=== PATIENT | male | born 1965 | race Caucasian/White ===

== ENCOUNTER 2016-03-24 11:03 | Inpatient (IN) | payer MEDICAID, OTHER ==
[2016-03-24] VITALS (9 sets, daily range): BP systolic 102–132; BP diastolic 50–93; PULSE 81–86; RESP 20–32; TEMP 97.6–98.7; O2SAT 81–93
[~2016-03-24] VITALS: Ht 154.9 cm; Wt 115.9 kg
[2016-03-24] MEDS ORDERED: METF500T PO (11:23)
[2016-03-24] MEDS ORDERED: ASPI81CH CHEW (11:23)
[2016-03-24 11:58] LABS: BASOPHIL # 0.1 TH/MM3 (0-0.2); BASOPHIL % 0.7 % (0.0-2.0); EOSINOPHIL # 0.1 TH/MM3 (0-0.4); EOSINOPHIL % 0.9 % (0.0-4.0); HEMATOCRIT 47.4 % (39.0-51.0); HEMO FLAGS DIFF FINAL; LYMPH % 11.4 % (9.0-44.0); LYMPHOCYTE # 1.4 TH/MM3 (1.0-4.8); MEAN CELL VOLUME 86.2 FL (80.0-100.0); MEAN CORPUSCULAR HEMOGLOBIN 27.5 PG (27.0-34.0); MEAN CORPUSCULAR HGB CONC 31.9 % (32.0-36.0); PLATELET COUNT 291 TH/MM3 (150-450); RED CELL DISTRIBUTION WIDTH 15.6 % (11.6-17.2); WHITE BLOOD COUNT 12.3 TH/MM3 (4.0-11.0)
--- NOTE | 2016-03-24 12:20 | RADRPT ---
EXAM DATE/TIME: 03/24/2016 11:42 [facility] COMPARISON: No previous studies available for comparison. INDICATIONS : Short of Breath. MEDICAL HISTORY : None. SURGICAL HISTORY : None. ENCOUNTER: Initial ACUITY: 1 day PAIN SCORE: 0/10 LOCATION: Bilateral chest FINDINGS: Portable AP view of the chest demonstrates cardiac silhouette size is upper limits for normal. Lungs are underinflated with likely atelectasis at the bases. Hazy opacity of the left lung may be related to slight rotation and overlying soft tissues. No definite effusion or pneumothorax is seen. No acute osseous abnormality is identified. CONCLUSION: Examination less than optimal due to underinflation and body habitus. There is likely atelectasis the lung bases but no other abnormality is seen. Ubaldo Rodas MD on March 24, 2016 at 12:18 Board Certified Radiologist. This report was verified electronically.
[2016-03-24 13:06] LABS: APTT (PATIENT) 27.9 SEC (24.3-30.1); PROTHROMBIN TIME - PATIENT 11.2 SEC (9.8-11.6)
[2016-03-24] MEDS ORDERED: IOHEXOL 350 MG/ML 10 ML VIAL (for RAD DIAG) IV ONE (13:08)
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
[2016-03-24 13:22] LABS: ALT (GPT) 29 U/L (12-78); ANION GAP 2 MEQ/L (5-15); AST (GOT) 11 U/L (15-37); BICARBONATE 38.2 MEQ/L (21.0-32.0); BLOOD UREA NITROGEN 11 MG/DL (7-18); CHLORIDE 101 MEQ/L (98-107); GLOMERULAR FILTRATION RATE 121 ML/MIN (>89); MAGNESIUM 2.2 MG/DL (1.5-2.5); POTASSIUM 4.2 MEQ/L (3.5-5.1); SODIUM (NA) 141 MEQ/L (136-145)
[2016-03-24 13:25] LABS: ALKALINE PHOSPHATASE 100 U/L (45-117); TOTAL BILIRUBIN ADULT 0.7 MG/DL (0.2-1.0)
--- NOTE | 2016-03-24 13:43 | RADRPT ---
EXAM DATE/TIME: 03/24/2016 12:47 [facility] COMPARISON: No previous studies available for comparison. INDICATIONS : Shortness of breath; evaluate for embolism. IV CONTRAST: 89 cc Omnipaque 350 (iohexol) IV RADIATION DOSE: 23.19 CTDIvol (mGy) MEDICAL HISTORY : Diabetes mellitus type 2. SURGICAL HISTORY : None. ENCOUNTER: Initial ACUITY: 1 day PAIN SCALE: 0/10 LOCATION: chest TECHNIQUE: Volumetric scanning of the chest was performed using a pulmonary embolism protocol MIP images were re constructed. Using automated exposure control and adjustment of the mA and/or kV according to patien t size, radiation dose was kept as low as reasonably achievable to obtain optimal diagnostic quality images. FINDINGS: Examination quality is degraded by respiratory motion artifact. PULMONARY ARTERIES: No filling defects are seen in the pulmonary arteries through the segmental level. LUNGS: There is no consolidation or pneumothorax . There is an 11 mm subpleural noncalcified pulmonary nodul e in the left lower lobe. PLEURAE: There is no pleural thickening or pleural effusion. MEDIASTINUM: Heart demonstrates no acute finding. Pulmonary artery measures 3.8 cm in diameter compared to 3.7 cm from the adjacent aorta. No lymphadenopathy is visualized. MUSCULOSKELETAL: Within normal limits for patient age. MISCELLANEOUS: The visualized upper abdominal organs demonstrate no acute abnormality. Liver density is suggestive o f steatosis. CONCLUSION: 1. There is respiratory motion artifact but no PE is identified through most of the segmental level p ulmonary arteries. 2. Mildly enlarged main pulmonary artery may indicate pulmonary arterial hypertension. 3. 11 mm left lower lobe noncalcified pulmonary nodule. Suggest correlation with any prior imaging st udies that could confirm longer-term stability. If none are available consider short-term followup no ncontrast chest CT in approximately 3 months. Ubaldo Rodas MD on March 24, 2016 at 13:38 Board Certified Radiologist. This report was verified electronically.
[2016-03-24 14:57] LABS: BLOOD GAS BASE EXCESS 8.8 mmol/L (-2-2); BLOOD GAS CARBOXYHEMOGLOBIN 2.5 % (0-4); BLOOD GAS HCO3 35 mmol/L (22-26); BLOOD GAS METHEMOGLOBIN 2.1 % (0-2); BLOOD GAS O2 HGB SATURATION 78 % (90-100); BLOOD GAS OXYGEN CONTENT 17.1 Vol % (12.0-20.0); BLOOD GAS PCO2 66 mmHg (38-42); BLOOD GAS PO2 46 mmHG (61-120); BLOOD GAS TOTAL HGB 15.7 G/DL (12.0-16.0); TEMP CORR TO 98.6
[2016-03-24 14:58] LABS: CRITICAL VALUE YES; DRAW SITE RT RADIAL; NUMBER OF ARTERIAL PUNCTURES 1; OXYGEN DEVICE RA; STAT YES; ULNAR PULSE Y
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
[2016-03-24] MEDS ORDERED: GLUCAGON 1 MG/ML VIAL OTHER PRN (16:30)
[2016-03-24] MEDS ORDERED: DEXTROSE 50% IN WATER 50 ML VIAL(D50) IV PUSH PRN (16:30)
[2016-03-24] MEDS: ENOXAPARIN SODIUM 40 MG/0.4 ML SYRINGE SQ SCH (17:00)
[2016-03-24] MEDS: RESP: ALBUTEROL 2.5 MG/IPRATROPIUM 0.5 MG NEB (SCH) NEB ×2 (17:12→20:32)
[2016-03-24] MEDS ORDERED: CHLORHEXIDINE GLUCONATE 2 % 1 PACK (2 CLOTHS)(extra cloths) TOP PRN (19:15)
[2016-03-24] MEDS: INSULIN NovoLIN REGULAR SUPPLEMENTAL SCALE SQ SCH (20:27)
[2016-03-25] VITALS (17 sets, daily range): BP systolic 109–151; BP diastolic 62–89; PULSE 80–98; RESP 24–27; TEMP 98.3–98.7; O2SAT 91–94
[2016-03-25] MEDS: RESP: ALBUTEROL 2.5 MG/IPRATROPIUM 0.5 MG NEB (SCH) NEB ×4 (03:48→19:35)
[2016-03-25] MEDS: CHLORHEXIDINE GLUCONATE 2 % 1 PACK (2 CLOTHS)(taper/protocol) TOP SCH (04:00)
[2016-03-25] MEDS: INSULIN NovoLIN REGULAR SUPPLEMENTAL SCALE SQ SCH ×4 (06:07→20:12)
[2016-03-25] MEDS: PANTOPRAZOLE SOD 40 MG DELAYED RELEASE TAB PO SCH (08:57)
[2016-03-25 09:53] LABS: HEMOGLOBIN A1a 1.5 %; HEMOGLOBIN A1b 2.1 %; HEMOGLOBIN Ao 83.1 %; HEMOGLOBIN LA1C 1.5 %; HEMOGLOBIN P3 3.8 %
[2016-03-25] MEDS ORDERED: INFLUENZA VIRUS VACCINE (QUADRIVALENT) 0.5 ML SYR IM ONE (10:00)
--- NOTE | 2016-03-25 13:38 | HHI.PR ---
Subjective Remarks states had a good sleep with BiPap on overnight complians of cramping of the right hand- states history of carpal tunnel surgery in the past- has a splint at home Objective Vitals Vital Signs Date Time Temp Pulse Resp B/P Pulse Ox O2 Delivery O2 Flow Rate FiO2 03/25/16 12:00 98.4 92 26 129/62 94 03/25/16 12:00 92 03/25/16 10:00 92 03/25/16 08:00 98.3 80 24 109/65 94 03/25/16 08:00 80 03/25/16 07:42 92 Nasal Cannula 4.00 03/25/16 06:00 83 03/25/16 04:08 93 45 03/25/16 04:00 81 03/25/16 04:00 98.4 87 27 112/62 92 03/25/16 02:00 83 03/25/16 00:38 92 45 03/25/16 00:00 98.6 84 26 112/62 91 03/25/16 00:00 84 03/24/16 22:00 86 03/24/16 20:32 93 Nasal Cannula 3.00 03/24/16 20:00 81 03/24/16 20:00 98.2 82 23 102/58 91 03/24/16 18:44 98.3 82 32 113/50 92 03/24/16 18:00 82 03/24/16 18:00 98.7 I/O 03/24/16 03/24/16 03/24/16 03/25/16 03/25/16 03/25/16 07:00 15:00 23:00 07:00 15:00 23:00 Intake Total 350 ml 700 ml Output Total 750 ml 650 ml Balance -400 ml 50 ml Intake Oral 350 ml 700 ml IV Total 0 ml 0 ml Output Urine Total 750 ml 650 ml # Bowel Movements 0 0 Result Diagram: 03/24/16 1144 03/24/16 1235 Imaging Last Impressions Chest X-Ray 03/24/16 1121 Signed Impressions: Service Date/Time: Thursday, March 24, 2016 11:42 - CONCLUSION: Examination less than optimal due to underinflation and body habitus. There is likely atelectasis the lung bases but no other abnormality is seen. Ubaldo Rodas MD CT Angiography 03/24/16 1121 Signed Impressions: Service Date/Time: Thursday, March 24, 2016 12:47 - CONCLUSION: 1. There is respiratory motion artifact but no PE is identified through most of the segmental level pulmonary arteries. 2. Mildly enlarged main pulmonary artery may indicate pulmonary arterial hypertension. 3. 11 mm left lower lobe noncalcified pulmonary nodule. Suggest correlation with any prior imaging studies that could confirm longer-term stability. If none are available consider short-term followup noncontrast chest CT in approximately 3 months. Ubaldo Rodas MD Objective Remarks awake and alert, oriented x 3 anicteric lungs no rales or wheezes regular rhythm abdomen- globularly soft, nontender both hands- good coverage analyst, good radial pulses LE- no edema A/P Assessment and Plan 50 years old male for dizziness, shortness of breath Acute respiratory Failure - C02 retention- likely with underlying chronic Restrictive lung disease from obesity JACOB suspect place on BiPAP hs change to NC 2LPM to keep sats greater than 90%. Get. PFTs Nebulization q 6 AND Q 2 PRN CTA negative for PE will need to arrange for home 02 need sleep studies as OP. Pulmonary consult DM type 2 Hold metformin with recent contrast- restart 48 hours with increase dose ( patient only on 500 mg once a day as OP) check hemoglobin A1C- 7.4 Sliding scale insulin tid hs Right hand cramping- History of Carpal tunnel surgery right hand get OT consult. ? splint or brace recommendation Seborrheic Dermatitis- face trial of Lotrisone bid to nasolabial folds PPI for GI prophylaxis Lovenox SQ for DVT prophylaxis Case management consult- will need home PAP OP ff up set up with a PCP Ana Dent MD Mar 25, 2016 13:38
[2016-03-25] MEDS: TIOTROPIUM BROMIDE 18 MCG INH INH SCH (13:45)
[2016-03-25] MEDS: ENOXAPARIN SODIUM 40 MG/0.4 ML SYRINGE SQ SCH (17:00)
[2016-03-25 17:27] LABS: BLOOD GAS BASE EXCESS 12.3 mmol/L (-2-2); BLOOD GAS CARBOXYHEMOGLOBIN 2.2 % (0-4); BLOOD GAS HCO3 40 mmol/L (22-26); BLOOD GAS METHEMOGLOBIN 1.2 % (0-2); BLOOD GAS O2 HGB SATURATION 89 % (90-100); BLOOD GAS OXYGEN CONTENT 19.7 Vol % (12.0-20.0); BLOOD GAS PCO2 93 mmHg (38-42); BLOOD GAS PO2 69 mmHg (61-120); BLOOD GAS TOTAL HGB 15.7 G/DL (12.0-16.0); TEMP CORR TO 98.6
[2016-03-25 17:29] LABS: OXYGEN DEVICE BIPAP
[2016-03-25 17:30] LABS: DRAW SITE RT RADIAL; FIO2 40 %; NUMBER OF ARTERIAL PUNCTURES 1; STAT NO; ULNAR PULSE PRESENT; VENT SETTINGS IPAP16/EPAP12
[2016-03-26] VITALS (19 sets, daily range): BP systolic 93–167; BP diastolic 57–90; PULSE 81–98; RESP 16–49; TEMP 97.3–99; O2SAT 81–100
[2016-03-26] MEDS: RESP: ALBUTEROL 2.5 MG/IPRATROPIUM 0.5 MG NEB (SCH) NEB ×4 (03:26→20:28)
[2016-03-26] MEDS: CHLORHEXIDINE GLUCONATE 2 % 1 PACK (2 CLOTHS)(taper/protocol) TOP SCH (04:00)
--- NOTE | 2016-03-26 05:18 | MB ---
cc: ORLANDO PERRY M.D. DATE OF CONSULTATION 03/25/2016 REASON FOR CONSULTATION Respiratory failure. Morbid obesity. HISTORY OF PRESENT ILLNESS The patient is a 50-year-old male admitted with sensation of dizziness. The patient was noted to be both hypoxic and hypercarbic with increasing lethargy, presently in Intensive Care setting on BiPap therapy. Denies shortness of breath, fever, chills, cough or expectoration. PAST MEDICAL HISTORY 1. Diabetes mellitus. 2. Morbid obesity. HOME MEDICATIONS 1. Aspirin. 2. Metformin. ALLERGIES PENICILLIN. TETANUS. FAMILY HISTORY Positive for diabetes. SOCIAL HISTORY Does not smoke or drink. Does not use drugs. SYSTEMS REVIEW A 12-point review of systems as per HPI and Past History, otherwise negative. PHYSICAL EXAMINATION VITAL SIGNS: Temperature 98, pulse 84, respirations 22, blood pressure 130/77, oxygen saturation 86% on 6 liters oxygen nasal cannula. HEENT: Exam unremarkable. Eyes without icterus. NECK: Without adenopathy or thyroid enlargement. Central trachea. CHEST: No dullness to percussion. Clear to auscultation. CARDIAC EXAM: PMI distant. S1-S2 audible. ABDOMEN: Obese, lax. Bowel sounds audible. EXTREMITIES: Trace edema. LABORATORY DATA Sodium 141, potassium 4.2, BUN 11, creatinine 0.7. ABG - pH 7.34, pCO2 66 and pO2 of 46 on room air. White count 12,000, hemoglobin 15, hematocrit 47, platelets at 291,000. CT CHEST Upon presentation with a left lower lobe lung nodule 1.1 cm that requires followup. Mild enlargement of main pulmonary artery noted. IMPRESSION 1. Hypoxic hypercarbic respiratory failure. 2. Morbid obesity. 3. Obesity hypoventilation. Question of a possible obstructive sleep apnea. 4. Left lower lobe lung nodule needs followup. PLAN 1. The patient will be maintained on BiPap therapy as needed. 2. He will require long-term oxygen therapy as well. 3. His lung nodule will need long-term followup. Nothing need be done at this point for his lung nodule. 4. We will check baseline pulmonary function when the patient is able to perform so. I do thank you for asking to partake in Mr. Leger's care. Sincerely, Orlando Perry MD [id number] /3:54 PM /5:04 AM
[2016-03-26] MEDS: INSULIN NovoLIN REGULAR SUPPLEMENTAL SCALE SQ SCH ×4 (06:42→20:02)
[2016-03-26] MEDS: TIOTROPIUM BROMIDE 18 MCG INH INH SCH (08:35)
[2016-03-26] MEDS: PANTOPRAZOLE SOD 40 MG DELAYED RELEASE TAB PO SCH (08:35)
--- NOTE | 2016-03-26 08:38 | HHI.PR ---
Subjective Remarks awake and alert, episodes of desaturation no chest pains. overnight on BiPAP 40 % tolerated well on NC on daytime Objective Vitals Vital Signs Date Time Temp Pulse Resp B/P Pulse Ox O2 Delivery O2 Flow Rate FiO2 03/26/16 06:00 91 03/26/16 04:04 91 40 03/26/16 04:04 91 BiPAP 40 03/26/16 04:00 96 18 129/59 91 03/26/16 04:00 92 03/26/16 02:00 95 03/26/16 01:17 94 40 03/26/16 00:00 98.5 84 26 112/62 91 03/26/16 00:00 97 03/25/16 22:01 92 45 03/25/16 22:00 94 03/25/16 20:00 98.7 90 25 151/80 92 03/25/16 20:00 98 03/25/16 19:35 91 45 03/25/16 18:00 90 03/25/16 16:00 90 03/25/16 16:00 98.7 90 26 140/89 91 03/25/16 14:00 91 03/25/16 12:00 98.4 92 26 129/62 94 03/25/16 12:00 92 03/25/16 10:00 92 I/O 03/25/16 03/25/16 03/25/16 03/26/16 03/26/16 03/26/16 07:00 15:00 23:00 07:00 15:00 23:00 Intake Total 700 ml 200 ml 0 ml 0 ml Output Total 650 ml 425 ml 500 ml 400 ml Balance 50 ml -225 ml -500 ml -400 ml Intake Oral 700 ml 200 ml 0 ml 0 ml IV Total 0 ml 0 ml 0 ml 0 ml Output Urine Total 650 ml 425 ml 500 ml 400 ml # Bowel Movements 0 0 0 0 Result Diagram: 03/24/16 1144 03/24/16 1235 Imaging Last Impressions Chest X-Ray 03/24/16 1121 Signed Impressions: Service Date/Time: Thursday, March 24, 2016 11:42 - CONCLUSION: Examination less than optimal due to underinflation and body habitus. There is likely atelectasis the lung bases but no other abnormality is seen. Ubaldo Rodas MD CT Angiography 03/24/16 1121 Signed Impressions: Service Date/Time: Thursday, March 24, 2016 12:47 - CONCLUSION: 1. There is respiratory motion artifact but no PE is identified through most of the segmental level pulmonary arteries. 2. Mildly enlarged main pulmonary artery may indicate pulmonary arterial hypertension. 3. 11 mm left lower lobe noncalcified pulmonary nodule. Suggest correlation with any prior imaging studies that could confirm longer-term stability. If none are available consider short-term followup noncontrast chest CT in approximately 3 months. 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 Perry ff NC on dayts to keep sats greater than 90%. Get. PFTs Nebulization q 6 AND Q 2 PRN CTA negative for PE need sleep studies as OP.. OP ff up of nodule in [address] 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 ? splint or brace recommendation Seborrheic Dermatitis- face trial of Lotrisone bid to nasolabial folds PPI for GI prophylaxis Lovenox SQ for DVT prophylaxis Case management consult- will need home PAP ADD: ABG worsening respiratory acidosis - will get Residential Direct Support Professional consult for ICU management. Ana Dent MD Mar 26, 2016 08:38
[2016-03-26 09:39] LABS: BLOOD GAS BASE EXCESS 15.4 mmol/L (-2-2); BLOOD GAS CARBOXYHEMOGLOBIN 2.4 % (0-4); BLOOD GAS HCO3 43 mmol/L (22-26); BLOOD GAS METHEMOGLOBIN 1.3 % (0-2); BLOOD GAS O2 HGB SATURATION 83 % (90-100); BLOOD GAS OXYGEN CONTENT 17.6 Vol % (12.0-20.0); BLOOD GAS PCO2 99 mmHg (38-42); BLOOD GAS PO2 54 mmHg (61-120); BLOOD GAS TOTAL HGB 15.1 G/DL (12.0-16.0); TEMP CORR TO 98.6
[2016-03-26 09:40] LABS: CRITICAL VALUE YES; DRAW SITE LT RADIAL; LITER FLOW 4 L/M; NUMBER OF ARTERIAL PUNCTURES 1; OXYGEN DEVICE NASAL CANNULA; STAT NO; ULNAR PULSE PRESENT
[2016-03-26] MEDS: metFORMIN HCL 500 MG TAB PO SCH ×2 (11:40→18:00)
[2016-03-26] MEDS: BETAMETHASONE/CLOTRIMAZOLE CREAM 15 GM TOPICAL SCH ×2 (11:40→20:03)
[2016-03-26 12:15] LABS: BLOOD GAS BASE EXCESS 15.6 mmol/L (-2-2); BLOOD GAS CARBOXYHEMOGLOBIN 2.6 % (0-4); BLOOD GAS HCO3 43 mmol/L (22-26); BLOOD GAS METHEMOGLOBIN 1.2 % (0-2); BLOOD GAS O2 HGB SATURATION 90 % (90-100); BLOOD GAS OXYGEN CONTENT 19.2 Vol % (12.0-20.0); BLOOD GAS PCO2 98 mmHg (38-42); BLOOD GAS PO2 71 mmHg (61-120); BLOOD GAS TOTAL HGB 15.3 G/DL (12.0-16.0); CRITICAL VALUE YES; OXYGEN DEVICE BiPAP; TEMP CORR TO 98.6
[2016-03-26 12:16] LABS: DRAW SITE LT RADIAL; FIO2 50 %; NUMBER OF ARTERIAL PUNCTURES 1; STAT NO; ULNAR PULSE PRESENT; VENT SETTINGS IPAP16/EPAP12
--- NOTE | 2016-03-26 13:01 | PD.CONS ---
HPI Service Critical Care Medicine Consult Requested By Primary Care Physician No Primary Care Physician Past Family Social History Allergies: Coded Allergies: Penicillin (Verified Allergy, Severe, Swelling, 03/24/16) Tetanus Toxoid (Verified Allergy, Unknown, Swelling, 03/24/16) Physical Exam Vital Signs Vital Signs Date Time Temp Pulse Resp B/P Pulse Ox O2 Delivery O2 Flow Rate FiO2 03/26/16 10:08 91 50 03/26/16 10:00 98 03/26/16 09:03 90 Nasal Cannula 4.00 03/26/16 08:00 91 03/26/16 08:00 99.0 91 26 133/72 90 03/26/16 06:00 91 03/26/16 04:04 91 40 03/26/16 04:04 91 BiPAP 40 03/26/16 04:00 96 18 129/59 91 03/26/16 04:00 92 03/26/16 02:00 95 03/26/16 01:17 94 40 03/26/16 00:00 98.5 84 26 112/62 91 03/26/16 00:00 97 03/25/16 22:01 92 45 03/25/16 22:00 94 03/25/16 20:00 98.7 90 25 151/80 92 03/25/16 20:00 98 03/25/16 19:35 91 45 03/25/16 18:00 90 03/25/16 16:00 90 03/25/16 16:00 98.7 90 26 140/89 91 03/25/16 14:00 91 Laboratory Laboratory Tests Test 03/25/16 03/26/16 03/26/16 17:16 09:20 12:00 Blood Gas Puncture Site RT RADIAL LT RADIAL LT RADIAL Blood Gas Patient Temperature 98.6 98.6 98.6 Blood Gas HCO3 40 43 43 Blood Gas Base Excess 12.3 15.4 15.6 Blood Gas Oxygen Saturation 89 83 90 Arterial Blood pH 7.26 7.26 7.26 Arterial Blood Partial 93 99 98 Pressure CO2 Arterial Blood Partial 69 54 71 Pressure O2 Arterial Blood Oxygen Content 19.7 17.6 19.2 Arterial Blood 2.2 2.4 2.6 Carboxyhemoglobin Arterial Blood Methemoglobin 1.2 1.3 1.2 Blood Gas Hemoglobin 15.7 15.1 15.3 Oxygen Delivery Device BIPAP NASAL CANNULA BiPAP Blood Gas Ventilator Setting IPAP16/EPAP12 IPAP16/EPAP12 Blood Gas Inspired Oxygen 40 50 Blood Gas Liter Flow 4 Result Diagram: 03/24/16 1144 03/24/16 1235 Baltazar Conner MD Mar 26, 2016 13:00
--- NOTE | 2016-03-26 13:02 | PD.CONS ---
[facility] Service Critical Care Medicine Consult Requested By Dr. Dent Reason for Consult Acute hypoxemic and hypercarbic respiratory failure Primary Care Physician No Primary Care Physician History of Present Illness Patient is a 50 years old obese male with past medical history significant for undiagnosed sleep apnea, super morbid obesity, type 2 diabetes was brought to the emergency department on 03/24/16 after feeling light headed and dizzy. On presentation here was found to be hypoxemic and ABG showed severe hypoxemia and hypercarbia. For a recent driving physical he was diagnosed with low oxygen saturations. Patient's oxygen saturation the ED was in the low 80s, which was confirmed on ABG with a oxygen saturation of 78% and PO2 of 46. CTA negative for PE. Patient was initiated on BiPAP therapy with consult to pulmonary Dr. Crane. His oxygenation improved but he continued to be hypercapnic. Today a.m. on nasal cannula his pH was 7.26 and PCO2 was increased at 99, patient was somnolent was placed back on BiPAP and repeat ABG at noon showed pH 7.26 PCO2 98 and pO2 70. This was on 16/02 BiPAP with FiO2 50%. Critical care was consulted. On my evaluation patient is somnolent but wakes up easily. I reduced the PEEP on BiPAP from 12-7 to facilitate better ventilation. A repeat ANG showed only minimal improvement, so decision made to intubate patient. Glidescope with #4 blade was used. Only propofol was used for induction. Initially I had a Grade 1-2 view, but I was unable to pass tube through the vocal cord to trachea in two attempts. Tube slipped out of Laryngeal opening both times. Dr Garrett intubated patient after NM paralysis with succinylcholine. Post intubation ABG showed improvement in hypercapnia and oxygenation. Review of Systems ROS Limitations: Clinical Condition, Altered Mental Status, Other (on BiPAP) Past Family Social History Allergies: Coded Allergies: Penicillin (Verified Allergy, Severe, Swelling, 03/24/16) Tetanus Toxoid (Verified Allergy, Unknown, Swelling, 03/24/16) Past Medical History Super morbid obesity Type 2 diabetes Probable obstructive sleep apnea undiagnosed Past Surgical History Right carpal tunnel surgery Reported Medications Metformin 500 mg daily ASA 81 mg daily Active Ordered Medications Reviewed Family History Noncontributory Social History Denies alcohol or tobacco use Physical Exam Vital Signs Vital Signs Date Time Temp Pulse Resp B/P Pulse Ox O2 Delivery O2 Flow Rate FiO2 03/26/16 10:08 91 50 03/26/16 10:00 98 03/26/16 09:03 90 Nasal Cannula 4.00 03/26/16 08:00 91 03/26/16 08:00 99.0 91 26 133/72 90 03/26/16 06:00 91 03/26/16 04:04 91 40 03/26/16 04:04 91 BiPAP 40 03/26/16 04:00 96 18 129/59 91 03/26/16 04:00 92 03/26/16 02:00 95 03/26/16 01:17 94 40 03/26/16 00:00 98.5 84 26 112/62 91 03/26/16 00:00 97 03/25/16 22:01 92 45 03/25/16 22:00 94 03/25/16 20:00 98.7 90 25 151/80 92 03/25/16 20:00 98 03/25/16 19:35 91 45 03/25/16 18:00 90 03/25/16 16:00 90 03/25/16 16:00 98.7 90 26 140/89 91 03/25/16 14:00 91 Physical Exam GENERAL: obese, in moderate distress on BiPAP SKIN: Evidence of seborrheic dermatitis of the face HEAD: Atraumatic. Normocephalic. No temporal or scalp tenderness. EYES: Pupils equal round and reactive. Extraocular motions intact. ENT: Nose without bleeding, BiPAP mask limits exam. Anticipated difficult airway NECK: Very Large neck. Trachea midline. CARDIOVASCULAR: Regular rate and rhythm without murmurs, gallops, or rubs. RESPIRATORY: Breath sounds equal bilaterally. Mild wheezes and rhonchi GASTROINTESTINAL: Abdomen soft, obese MUSCULOSKELETAL: Extremities without clubbing, cyanosis, or edema. NEUROLOGICAL: Somnolent but wakes up easily. Obeys some commands Laboratory Laboratory Tests Test 03/25/16 03/26/16 03/26/16 17:16 09:20 12:00 Blood Gas Puncture Site RT RADIAL LT RADIAL LT RADIAL Blood Gas Patient Temperature 98.6 98.6 98.6 Blood Gas HCO3 40 43 43 Blood Gas Base Excess 12.3 15.4 15.6 Blood Gas Oxygen Saturation 89 83 90 Arterial Blood pH 7.26 7.26 7.26 Arterial Blood Partial 93 99 98 Pressure CO2 Arterial Blood Partial 69 54 71 Pressure O2 Arterial Blood Oxygen Content 19.7 17.6 19.2 Arterial Blood 2.2 2.4 2.6 Carboxyhemoglobin Arterial Blood Methemoglobin 1.2 1.3 1.2 Blood Gas Hemoglobin 15.7 15.1 15.3 Oxygen Delivery Device BIPAP NASAL CANNULA BiPAP Blood Gas Ventilator Setting IPAP16/EPAP12 IPAP16/EPAP12 Blood Gas Inspired Oxygen 40 50 Blood Gas Liter Flow 4 Result Diagram: 03/24/16 1144 03/24/16 1235 Imaging Chest x-ray shows bibasilar atelectasis Assessment and Plan Assessment and Plan ASSESSMENT: Acute hypoxemic and hypercarbic respiratory failure Obstructive sleep apnea/obesity hypoventilation syndrome Pulmonary edema Severe morbid obesity Incidental Pulmonary nodule DM type 2 Seborrheic Dermatitis PLAN: NEURO: -Placed on propofol and fentanyl postintubation. No sedation vacation for 24 hours RESP: -Emergently intubated and placed on mechanical ventilation -ACV 16/600/12/ Titrate FiO2. -DuoNeb q6 and PRN -Daily CPAP trials, starting in 24 hours -Solu-Medrol 40 mg IV q6 -Empiric Azactam CV: -Chest x-ray shows probable pulmonary edema, cardiomegaly -Check 2-D echo, check BNP -IV Lasix 40 mg 1 and 20 every 12 hours GI: -Nothing by mouth, tube feeds with Glucerna and 24 hours, IV Protonix : -Monitor renal function closely. Becker catheter. ID: -Empirically placed on Azactam 2 g IV every 8 hours -Check sputum culture and blood culture HEME: -Monitor CBC, CMP, coags ENDO: -Sliding-scale insulin, electrolyte replacement protocol PROPH: -Bilateral lower extremity SCDs. IV Protonix 40 mg daily. Lovenox 40 mg sq BID LINES: -Utilize peripheral IVs, central line if needed CC time 90 min excluding procedures Code Status Full Code Discussed Condition With Baltazar Wen MD Mar 26, 2016 13:02
[2016-03-26 13:11] LABS: BLOOD GAS CARBOXYHEMOGLOBIN 2.6 % (0-4); BLOOD GAS HCO3 42 mmol/L (22-26); BLOOD GAS METHEMOGLOBIN 1.3 % (0-2); BLOOD GAS O2 HGB SATURATION 87 % (90-100); BLOOD GAS OXYGEN CONTENT 18.8 Vol % (12.0-20.0); BLOOD GAS PCO2 96 mmHg (38-42); BLOOD GAS PO2 60 mmHg (61-120); BLOOD GAS TOTAL HGB 15.4 G/DL (12.0-16.0); TEMP CORR TO 98.6
[2016-03-26 13:12] LABS: CRITICAL VALUE YES; DRAW SITE RT RADIAL; FIO2 60 %; NUMBER OF ARTERIAL PUNCTURES 1; OXYGEN DEVICE BiPAP; STAT NO; ULNAR PULSE PRESENT; VENT SETTINGS IPAP16/EPAP7
[2016-03-26] MEDS ORDERED: PROPOFOL 1000 MG/100 ML INJ 100 ML ONE (13:16)
[2016-03-26] MEDS ORDERED: ETOMIDATE 40 MG/20 ML VIAL ONE (13:20)
[2016-03-26 14:59] LABS: BLOOD GAS BASE EXCESS 13.3 mmol/L (-2-2); BLOOD GAS CARBOXYHEMOGLOBIN 2.7 % (0-4); BLOOD GAS HCO3 38 mmol/L (22-26); BLOOD GAS METHEMOGLOBIN 1.3 % (0-2); BLOOD GAS O2 HGB SATURATION 95 % (90-100); BLOOD GAS PCO2 51 mmHg (38-42); BLOOD GAS PO2 121 mmHg (61-120); BLOOD GAS TOTAL HGB 15.6 G/DL (12.0-16.0); CRITICAL VALUE YES; OXYGEN DEVICE VENTILATOR; TEMP CORR TO 98.6
[2016-03-26 15:00] LABS: DRAW SITE LT RADIAL; FIO2 100 %; NUMBER OF ARTERIAL PUNCTURES 1; STAT NO; ULNAR PULSE PRESENT; VENT SETTINGS PRVC/AC
--- NOTE | 2016-03-26 15:02 | OTSOAPIP ---
TIME SESSION COMPLETED: 1400 TREATMENT TIME: 0 MINS. CHART REVIEWED. RECEIVED ORDERS FROM DR. SAEZ FOR OCCUPATIONAL THERAPY EVALUATION. ATTEMPTED TO SEE THIS DATE, HOWEVER PATIENT NOT STABLE AT THIS TIME. SPOKE WITH RN AND PATIENT WAS JUST RECENTLY INTUBATED. WILL HOLD EVALUATION TODAY AND PLAN TO FOLLOW UP TOMORROW TO CHECK AND SEE IF PATIENT IS STABLE. INTERDISCIPLINARY COMMUNICATION: REVIEWED ELECTRONIC MEDICAL RECORD, SPOKE WITH RN Therapist: Johanna Armando, OTR/L Signature on file
--- NOTE | 2016-03-26 15:07 | RADRPT ---
EXAM DATE/TIME: 03/26/2016 14:12 [facility] COMPARISON: CT PULMONARY ANGIOGRAM, March 24, 2016, 12:47. CHEST SINGLE AP, March 24, 2016, 11:42. INDICATIONS : Endotracheal tube placement. MEDICAL HISTORY : None. SURGICAL HISTORY : None. ENCOUNTER: Initial ACUITY: 3 days PAIN SCORE: Non-responsive. LOCATION: chest FINDINGS: The ET tube is in good position. The heart is enlarged. There is diffuse interstitial prominence sugg esting congestive failure. There are mild atelectatic changes at the left lung base. The bony structu res are intact. CONCLUSION: 1. ET tube in satisfactory position. Dc Barton MD on March 26, 2016 at 15:05 Board Certified Radiologist. This report was verified electronically.
[2016-03-26] MEDS ORDERED: ROCURONIUM INJ 50 MG/5 ML VIAL ONE ×2 (15:38→15:40)
--- NOTE | 2016-03-26 16:08 | PD.PROCEDR ---
Central Line Procedure REASON FOR PROCEDURE Central venous access PROCEDURE PERFORMED Central line placement: LIJ central line CONSENT Informed consent for procedure was obtained and time out performed. The risks and benefits of the procedure were discussed to include but limited to bleeding , clot formation, infection, and even . ANESTHESIA Local injection of 1% Lidocaine DESCRIPTION OF THE PROCEDURE The patient was placed in supine, mild Trendelenburg position. The area was exposed and cleansed with ChloraPrep, times two. Large sterile drape was used to cover the patient, with the site exposed, under sterile conditions including cap, face mask, sterile gown, and sterile gloves. On single attempt, the introducer needle was inserted with negative pressure in syringe and venous flash was obtained. The guide wire was then advanced without any restriction and the needle was removed. The dilator was used without any complications. Using Seldinger technique the 20 CM 7F ABX coated catheter was advanced over the guide wire to a depth of 19 centimeters. The guide wire was removed. All ports were aspirated with dark venous blood return and flushed easily with sterile saline. All ports were capped. Antibiotic disc was placed around central line at puncture site. The central line was secured to the skin with two interrupted 2.0 silk sutures. The area was bandaged with sterile see- through central line bandage. RADIOLOGICAL DATA Ultrasound guidance was used to locate LIJ. Doppler/color flow was used to confirm venous flow. COMPLICATIONS: No apparent complications ESTIMATED BLOOD LOSS: Less than 1 cc. Baltazar Conner MD Mar 26, 2016 16:08
[2016-03-26 16:11] LABS: BICARBONATE 39.4 MEQ/L (21.0-32.0)
--- NOTE | 2016-03-26 16:20 | PD.PROCEDR ---
Procedure Note Procedure After the risks and benefits were discussed the following procedure was performed: INTUBATION: The patient was put in optimal position for the procedure. Rapid sequence intubation was initiated by me using 100 milligrams of Propofol IV. Glidescope with #4 blade was used. Initially I had a Grade 1-2 view, but I was unable to pass tube through the vocal cord to trachea in two attempts. Tube slipped out of Laryngeal opening both times. Dr Garrett intubated patient after NM paralysis with succinylcholine in one attempt. The patient was intubated with a 8.0 cuffed endotracheal tube. Tube placement was confirmed by visualization of the tube and balloon passing through the cords, capnometry and subsequent chest x-ray. Breath sounds were equal and well aerated bilaterally postintubation. No breath sounds over stomach. Patient tolerated procedure well. Baltazar Conner MD Mar 26, 2016 16:20
--- NOTE | 2016-03-26 16:43 | EC ---
Study Study Date:03/26/2016 STUDY CONCLUSIONS SUMMARY - Left ventricle: The cavity size was normal. Wall thickness was normal. Systolic function was normal. The estimated ejection fraction was 55%. Wall motion was normal; there were no regional wall motion abnormalities. - Aortic valve: Transvalvular velocity was minimally increased. There was very mild stenosis. - Mitral valve: Mild regurgitation. - Tricuspid valve: Mild regurgitation. If LV function is below 40, please consider prescribing an ACEI or ARB or document rationale for non-use. PROCEDURE DATA STUDY STATUS: Elective. Procedure: Transthoracic echocardiography. Image quality was poor. Scanning was performed from the parasternal, apical, and subcostal acoustic windows. Study completion: The patient tolerated the procedure well. Transthoracic echocardiography. M-mode, complete 2D, complete spectral Doppler, and color Doppler. Patient status: Inpatient. CARDIAC ANATOMY LEFT VENTRICLE: The cavity size was normal. Wall thickness was normal. Systolic function was normal. The estimated ejection fraction was 55%. Wall motion was normal; there were no regional wall motion abnormalities. AORTIC VALVE: Trileaflet; mildly thickened leaflets. Doppler: Transvalvular velocity was minimally increased. There was very mild stenosis. No regurgitation. Valve area: 1.17cm^2(VTI). Valve area: 1.09cm^2 (Vmax). Mean gradient: 10mm Hg (S). Peak gradient: 22mm Hg (S). AORTA: Aortic root: The aortic root was normal in size. MITRAL VALVE: Structurally normal valve. Doppler: Transvalvular velocity was within the normal range. There was no evidence for stenosis. Mild regurgitation. LEFT ATRIUM: The atrium was normal in size. RIGHT VENTRICLE: The cavity size was normal. Wall thickness was normal. PULMONIC VALVE: Doppler: Transvalvular velocity was within the normal range. There was no evidence for stenosis. No regurgitation. TRICUSPID VALVE: Structurally normal valve. Doppler: Transvalvular velocity was within the normal range. Mild regurgitation. PULMONARY ARTERY: The main pulmonary artery was normal-sized. Systolic pressure was within the normal range. RIGHT ATRIUM: The atrium was normal in size. PERICARDIUM: There was no pericardial effusion. SYSTEMIC VEINS: Inferior vena cava: The vessel was normal in size. BASIC MEASUREMENTS ADULT NORMAL Left ventricle LV internal dimension, ED, chordal level, 45.5 mm 43-52 PLAX LV internal dimension, ES, chordal level, 35.3 mm 23-38 PLAX Fractional shortening, chordal level, PLAX *22 % >29 LV posterior wall thickness, ED 11.4 mm IVS/LVPW ratio, ED 0.96 <1.3 Ventricular septum Septal thickness, ED 11 mm Aortic valve Leaflet separation 24 mm 15-26 Right ventricle RV internal dimension, ED, PLAX 27.8 mm 19-38 BASIC MEASUREMENTS ADULT NORMAL Aortic valve Leaflet separation 24 mm 15-26 Aorta Root diameter, ED 35 mm 20-37 Left atrium Anterior-posterior dimension, ES 30 mm 19-40 LA/aortic root ratio 0.86 DOPPLER MEASUREMENTS ADULT NORMAL Aortic valve Peak velocity, S 232 cm/s Mean velocity, S 147 cm/s VTI, S 39.9 cm Mean gradient, S 10 mm Hg Peak gradient, S 22 mm Hg Valve area, VTI 1.17 cm^2 Valve area, Vmax 1.09 cm^2 LEGEND: Mean values are shown as u=mean value. Asterisk (*) flower values outside specified normal range. Prepared and signed by Sriram Matthews [id number]
[2016-03-26] MEDS ORDERED: FUROSEMIDE 40 MG/4 ML VIAL IV PUSH ONE (16:45)
[2016-03-26] MEDS ORDERED: MAGNESIUM SULFATE INJ 4 GM in SODIUM CHLORIDE 0.9% INJ 92 ML IV PRN (16:45)
[2016-03-26] MEDS ORDERED: MAGNESIUM SULFATE INJ 2 GM in SODIUM CHLORIDE 0.9% INJ 96 ML IV PRN (16:45)
[2016-03-26] MEDS ORDERED: POTASSIUM CL 40 MEQ/30 ML LIQ UDC PO/TUBE PRN (16:45)
[2016-03-26] MEDS ORDERED: POTASSIUM PHOSPHATE INJ 30 MMOL in SODIUM CHLOR 0.9% 250 ML INJ 250 ML IV PRN (16:45)
[2016-03-26] MEDS ORDERED: MAGNESIUM OXIDE 400 MG TAB PO PRN (16:45)
[2016-03-26] MEDS ORDERED: POTASSIUM PHOSPHATE MONOBASIC 500 MG TAB PO PRN (16:45)
[2016-03-26] MEDS ORDERED: SODIUM PHOSPHATE INJ 30 MMOL in SODIUM CHLOR 0.9% 250 ML INJ 240 ML IV PRN (16:45)
[2016-03-26] MEDS ORDERED: POTASSIUM PHOSPHATE MONOBASIC 500 MG TAB PO/TUBE PRN (16:45)
--- NOTE | 2016-03-26 17:12 | RADRPT ---
EXAM DATE/TIME: 03/26/2016 16:09 [facility] COMPARISON: CHEST SINGLE AP, March 26, 2016, 14:12. INDICATIONS : Evaluate cenrtral line placement MEDICAL HISTORY : None. SURGICAL HISTORY : None. ENCOUNTER: Subsequent ACUITY: 3 days PAIN SCORE: Non-responsive. LOCATION: Bilateral chest FINDINGS: ET tube terminates at the chanelle and pull back 3 cm is recommended. There is placement of a left jugu lar catheter terminating across the midline on the right in the proximal superior vena cava. Poor aer ation is again appreciated CONCLUSION: Left jugular catheter terminates in the proximal superior vena cava without complication. ET tube ter minates at the chanelle pull back 3 cm recommend Bernard Hartman MD on March 26, 2016 at 17:09 Board Certified Radiologist. This report was verified electronically.
[2016-03-26] MEDS: PROPOFOL 1000 MG/100 ML IV SCH ×3 (17:59→20:06)
[2016-03-26] MEDS: FUROSEMIDE 20 MG/2 ML VIAL IV PUSH SCH (18:00)
[2016-03-26] MEDS: ENOXAPARIN SODIUM 40 MG/0.4 ML SYRINGE SQ SCH (18:00)
[2016-03-26] MEDS: PANTOPRAZOLE SODIUM 40 MG VIAL IV PUSH SCH (18:00)
[2016-03-26] MEDS: POTASSIUM CL 40 MEQ/30 ML LIQ UDC PO SCH (18:02)
[2016-03-26] MEDS: methylPREDNISolone SOD SUCC 125 MG/2 ML VIAL IV PUSH SCH (20:04)
[2016-03-26] MEDS: AZTREONAM INJ 2,000 MG in SODIUM CHLORIDE 0.9% INJ 100 ML IV SCH (20:05)
--- NOTE | 2016-03-26 21:44 | EKG ---
Date Performed: 03/24/2016 Time Performed: 11:26:17 PTAGE: 50 years EKG: Sinus rhythm NORMAL ECG NO PREVIOUS TRACING DOCTOR: Ethan Russo Interpretating Date/Time 03/26/2016 21:43:06
--- NOTE | 2016-03-26 22:08 | PD.PROCEDR ---
Procedure Note Procedure Procedure: Arterial Line Placement Left radial arterial line Diagnosis: Acute hypoxic and hypercarbic respiratory failure Indications: Need for serial arterial blood gas monitoring Consent: Consent is deemed emergent or medically necessary Description of the Procedure: The left wrist was prepped and draped sterilely. 1% lidocaine was used for local anesthesia. The pulse was located and a needle was advanced into the artery. A 20 gauge, 12 cm catheter was advanced into the artery using a modified Seldinger technique. The catheter was sutured to the skin and a sterile dressing was applied. The catheter was connected to a pressure transducer and an arterial waveform was noted. Ultrasound guidance: Ultrasound guidance was used to identify the left radial artery. The anatomy of the left wrist was deemed normal. Under direct real- time visualization, the radial artery was cannulated and a guidewire was threaded easily. There were no immediate complications noted. There was minimal EBL. I personally performed the procedure. Js Garrett MD Mar 26, 2016 22:08
[2016-03-27] VITALS (18 sets, daily range): BP systolic 95–122; BP diastolic 55–61; PULSE 58–101; RESP 15–16; TEMP 98.5–99; O2SAT 90–98
[2016-03-27 00:49] LABS: BLOOD GAS BASE EXCESS 9.8 mmol/L (-2-2); BLOOD GAS CARBOXYHEMOGLOBIN 1.8 % (0-4); BLOOD GAS HCO3 34 mmol/L (22-26); BLOOD GAS METHEMOGLOBIN 1.1 % (0-2); BLOOD GAS O2 HGB SATURATION 93 % (90-100); BLOOD GAS OXYGEN CONTENT 19.8 Vol % (12.0-20.0); BLOOD GAS PCO2 42 mmHg (38-42); BLOOD GAS PO2 67 mmHg (61-120); BLOOD GAS TOTAL HGB 15.1 G/DL (12.0-16.0); CRITICAL VALUE YES; OXYGEN DEVICE VENTILATOR; TEMP CORR TO 98.6
[2016-03-27 00:50] LABS: DRAW SITE ART LINE; FIO2 100 %; STAT YES; VENT SETTINGS PRVC/AC
[2016-03-27] MEDS: AZTREONAM INJ 2,000 MG in SODIUM CHLORIDE 0.9% INJ 100 ML IV SCH ×3 (01:41→18:23)
[2016-03-27] MEDS: PROPOFOL 1000 MG/100 ML IV SCH ×11 (01:42→21:49)
[2016-03-27] MEDS: RESP: ALBUTEROL 2.5 MG/IPRATROPIUM 0.5 MG NEB (SCH) NEB ×4 (03:26→21:15)
[2016-03-27] MEDS: fentaNYL 2,500 MCG/NS 250 ML IV SCH ×2 (03:48→15:27)
[2016-03-27] MEDS: CHLORHEXIDINE GLUCONATE 2 % 1 PACK (2 CLOTHS)(taper/protocol) TOP SCH (04:00)
[2016-03-27] MEDS: ENOXAPARIN SODIUM 40 MG/0.4 ML SYRINGE SQ SCH ×2 (04:23→17:43)
[2016-03-27] MEDS: INSULIN NovoLIN REGULAR SUPPLEMENTAL SCALE SQ SCH ×4 (06:27→21:03)
--- NOTE | 2016-03-27 07:52 | RADRPT ---
EXAM DATE/TIME: 03/27/2016 07:30 [facility] COMPARISON: CHEST SINGLE AP, March 26, 2016, 16:09. INDICATIONS : Respiratory disease. MEDICAL HISTORY : None. SURGICAL HISTORY : None. ENCOUNTER: Subsequent ACUITY: 1 day PAIN SCORE: Non-responsive. LOCATION: Bilateral chest FINDINGS: A single view of the chest demonstrates left basilar infiltrate. Nasogastric tube with tip likely in stomach. Left jugular central line is stable in position. Endotracheal tube with tip 5 cm above the c aden. The cardiomediastinal contours are unremarkable. Osseous structures are intact. CONCLUSION: 1. Left basilar infiltrate. 2. Support lines and tubes as described above. Wale Dalal MD on March 27, 2016 at 7:50 Board Certified Radiologist. This report was verified electronically.
--- NOTE | 2016-03-27 07:59 | HHI.CCPN ---
Subjective Remarks/Hospital Course Patient is a 50 years old obese male with past medical history significant for undiagnosed sleep apnea, super morbid obesity, type 2 diabetes was brought to the emergency department on 03/24/16 after feeling light headed and dizzy. On presentation here was found to be hypoxemic and ABG showed severe hypoxemia and hypercarbia. For a recent driving physical he was diagnosed with low oxygen saturations. Patient's oxygen saturation the ED was in the low 80s, which was confirmed on ABG with a oxygen saturation of 78% and PO2 of 46. CTA negative for PE. Patient was initiated on BiPAP therapy with consult to pulmonary Dr. Crane. His oxygenation improved but he continued to be hypercapnic. Today a.m. on nasal cannula his pH was 7.26 and PCO2 was increased at 99, patient was somnolent was placed back on BiPAP and repeat ABG at noon showed pH 7.26 PCO2 98 and pO2 70. This was on 16 BiPAP with FiO2 50%. Critical care was consulted. On my evaluation patient is somnolent but wakes up easily. I reduced the PEEP on BiPAP from 12-7 to facilitate better ventilation. A repeat ANG showed only minimal improvement, so decision made to intubate patient. Glidescope with #4 blade was used. Only propofol was used for induction. Initially I had a Grade 1-2 view, but I was unable to pass tube through the vocal cord to trachea in two attempts. Tube slipped out of Laryngeal opening both times. Dr Garrett intubated patient after NM paralysis with succinylcholine. Post intubation ABG showed improvement in hypercapnia and oxygenation. SUBJ 03/27/16: Patient remains intubated heavily sedated with propofol and fentanyl. Remained severely hypoxemic on 100% FiO2, PEEP12, chest x-ray shows bibasilar infiltrates. Flagyl added. We'll give 1 dose of vancomycin-Adjust antibiotics according to cultures. Patient super morbid obesity may prevent Prone therapy Objective Vital Signs Date Time Temp Pulse Resp B/P Pulse Ox O2 Delivery O2 Flow Rate FiO2 03/27/16 07:26 90 100 03/27/16 06:00 74 03/27/16 04:00 98.8 15 122/60 03/26/16 09:03 Nasal Cannula 4.00 Intake and Output 03/26/16 03/26/16 03/27/16 08:00 16:00 00:00 Intake Total 0 ml 360 ml 728 ml Output Total 400 ml 0 ml 1600 ml Balance -400 ml 360 ml -872 ml Result Diagram: 03/24/16 1144 03/26/16 1527 Other Results Laboratory Tests Test 03/26/16 03/26/16 03/26/16 03/26/16 09:20 12:00 12:57 14:45 Blood Gas Puncture Site LT RADIAL LT RADIAL RT RADIAL LT RADIAL Blood Gas Patient Temperature 98.6 98.6 98.6 98.6 Blood Gas HCO3 43 mmol/L 43 mmol/L 42 mmol/L 38 mmol/L (22-26) (22-26) (22-26) (22-26) Blood Gas Base Excess 15.4 mmol/L 15.6 mmol/L 15.0 mmol/L 13.3 mmol/L (-2-2) (-2-2) (-2-2) (-2-2) Blood Gas Oxygen Saturation 83 % (90-100) 90 % (90-100) 87 % (90-100) 95 % (90- 100) Arterial Blood pH 7.26 7.26 7.27 7.49 (7.380-7.420) (7.380-7.420) (7.380-7.420) (7.380-7.420) Arterial Blood Partial 99 mmHg (38-42) 98 mmHg (38-42) 96 mmHg (38-42) 51 mmHg ( 38-42) Pressure CO2 Arterial Blood Partial 54 mmHg 71 mmHg 60 mmHg 121 mmHg Pressure O2 (61-120) (61-120) (61-120) (61-120) Arterial Blood Oxygen Content 17.6 Vol % 19.2 Vol % 18.8 Vol % 21.0 Vol % (12.0-20.0) (12.0-20.0) (12.0-20.0) (12.0-20.0) Arterial Blood 2.4 % (0-4) 2.6 % (0-4) 2.6 % (0-4) 2.7 % (0-4) Carboxyhemoglobin Arterial Blood Methemoglobin 1.3 % (0-2) 1.2 % (0-2) 1.3 % (0-2) 1.3 % (0-2) Blood Gas Hemoglobin 15.1 G/DL 15.3 G/DL 15.4 G/DL 15.6 G/DL (12.0-16.0) (12.0-16.0) (12.0-16.0) (12.0-16.0) Oxygen Delivery Device NASAL CANNULA BiPAP BiPAP VENTILATOR Blood Gas Liter Flow 4 L/M Blood Gas Ventilator Setting IPAP16/EPAP12 IPAP16/EPAP7 PRVC/AC Blood Gas Inspired Oxygen 50 % 60 % 100 % Test 03/27/16 00:36 Blood Gas Puncture Site ART LINE Blood Gas Patient Temperature 98.6 Blood Gas HCO3 34 mmol/L (22-26) Blood Gas Base Excess 9.8 mmol/L (-2-2) Blood Gas Oxygen Saturation 93 % (90-100) Arterial Blood pH 7.51 (7.380-7.420) Arterial Blood Partial 42 mmHg (38-42) Pressure CO2 Arterial Blood Partial 67 mmHg Pressure O2 (61-120) Arterial Blood Oxygen Content 19.8 Vol % (12.0-20.0) Arterial Blood 1.8 % (0-4) Carboxyhemoglobin Arterial Blood Methemoglobin 1.1 % (0-2) Blood Gas Hemoglobin 15.1 G/DL (12.0-16.0) Oxygen Delivery Device VENTILATOR Blood Gas Ventilator Setting PRVC/AC Blood Gas Inspired Oxygen 100 % Imaging Chest x-ray shows bibasilar atelectasis Objective Remarks GENERAL: obese, heavily sedated on vent SKIN: Evidence of seborrheic dermatitis of the face HEAD: Atraumatic. Normocephalic. EYES: Pupils equal round and reactive. ENT: Nose without bleeding, orotracheally intubated NECK: Very Large neck. Trachea midline. LIJ central line in place CARDIOVASCULAR: Regular rate and rhythm without murmurs, gallops, or rubs. RESPIRATORY: Breath sounds equal bilaterally. Mild wheezes and rhonchi. on PRVC 16 PEEP GASTROINTESTINAL: Abdomen soft, obese MUSCULOSKELETAL: Extremities without clubbing, cyanosis, or edema. NEUROLOGICAL: Intubated heavily sedated with propofol and fentanyl for ventilator synchrony Urinary Catheter: Yes Assessment to: Continue Vascular Central Line Catheter: Yes Assessment to: Continue Date of Insertion: Mar 26, 2016 Side: Left Location: Internal, Jugular A/P Assessment and Plan ASSESSMENT: Acute hypoxemic and hypercarbic respiratory failure Obstructive sleep apnea/obesity hypoventilation syndrome Pulmonary edema Probable HCAP Severe morbid obesity Incidental Pulmonary nodule DM type 2 Seborrheic Dermatitis PLAN: NEURO: -Placed on propofol and fentanyl postintubation. No sedation vacation for 24 hours RESP: -Emergently intubated and placed on mechanical ventilation 03/26/16 -ACV 16/600/12/ Titrate FiO2. -DuoNeb q6 and PRN -Daily CPAP trials, starting in 24 hours -Solu-Medrol 40 mg IV q6 -Empiric Azactam, Flagyl and 1 dose of vancomycin -Consider Prone therapy (patient may be too obese to safely prone) CV: -Chest x-ray shows probable pulmonary edema, cardiomegaly and new LLL infiltrate on my review -2-D echo Nl EF, normal BNP -IV Lasix 40 mg 1 and 20 every 12 hours GI: -Nothing by mouth, start tube feeds with Glucerna, IV Protonix -Colace for bowel regimen : -Monitor renal function closely. Becker catheter. ID: -Empirically placed on Azactam 2 g IV every 8 hours. Start IV Flagyl and 1 dose of vancomycin -F/U sputum culture and blood culture HEME: -Monitor CBC, CMP, coags ENDO: -Sliding-scale insulin, electrolyte replacement protocol PROPH: -Bilateral lower extremity SCDs. IV Protonix 40 mg daily. Lovenox 40 mg sq BID LINES: -LIJ central line and L radila art line in place CC time 40 min excluding procedures Baltazar Conner MD Mar 27, 2016 07:59
[2016-03-27] MEDS ORDERED: Vancomycin Consult Pharmacy 1 EA OTHER SCH (08:00)
[2016-03-27 08:33] LABS: BLOOD GAS BASE EXCESS 10.1 mmol/L (-2-2); BLOOD GAS CARBOXYHEMOGLOBIN 1.5 % (0-4); BLOOD GAS HCO3 34 mmol/L (22-26); BLOOD GAS METHEMOGLOBIN 1.3 % (0-2); BLOOD GAS O2 HGB SATURATION 96 % (90-100); BLOOD GAS OXYGEN CONTENT 20.8 Vol % (12.0-20.0); BLOOD GAS PCO2 46 mmHg (38-42); BLOOD GAS PO2 101 mmHg (61-120); BLOOD GAS TOTAL HGB 15.4 G/DL (12.0-16.0); CRITICAL VALUE NO; OXYGEN DEVICE VENTILATOR; TEMP CORR TO 98.6
[2016-03-27 08:34] LABS: DRAW SITE ART LINE; STAT NO; VENT SETTINGS PRVC/AC
[2016-03-27] MEDS: FUROSEMIDE 20 MG/2 ML VIAL IV PUSH SCH ×2 (08:36→17:43)
[2016-03-27] MEDS: TIOTROPIUM BROMIDE 18 MCG INH INH SCH (08:36)
[2016-03-27] MEDS: metroNIDAZOLE 500 MG INJ 100 ML IV SCH ×3 (08:36→23:28)
[2016-03-27] MEDS: BETAMETHASONE/CLOTRIMAZOLE CREAM 15 GM TOPICAL SCH ×2 (08:37→20:55)
[2016-03-27] MEDS: methylPREDNISolone SOD SUCC 125 MG/2 ML VIAL IV PUSH SCH ×2 (08:37→20:55)
[2016-03-27] MEDS: metFORMIN HCL 500 MG TAB PO SCH ×2 (08:37→17:44)
[2016-03-27] MEDS: POTASSIUM CL 40 MEQ/30 ML LIQ UDC PO SCH (08:37)
[2016-03-27] MEDS: BENEPROTEIN POWDER 1 PACK G-TUBE SCH ×3 (09:00→17:44)
[2016-03-27] MEDS ORDERED: VANCOMYCIN INJ 1,500 MG in SODIUM CHLORID 0.9% 500 ML INJ 500 ML IV ONE (09:00)
[2016-03-27 09:38] LABS: AUTOMATED NEUTROPHIL # 11.3 TH/MM3 (1.8-7.7); BASOPHIL % 0.3 % (0.0-2.0); HEMATOCRIT 46.5 % (39.0-51.0); HEMO FLAGS DIFF FINAL; LYMPH % 4.8 % (9.0-44.0); LYMPHOCYTE # 0.6 TH/MM3 (1.0-4.8); MEAN CORPUSCULAR HEMOGLOBIN 27.3 PG (27.0-34.0); MEAN CORPUSCULAR HGB CONC 31.8 % (32.0-36.0); NEUT % 91.9 % (16.0-70.0); PLATELET COUNT 293 TH/MM3 (150-450); RED BLOOD COUNT 5.41 MIL/MM3 (4.50-5.90); WHITE BLOOD COUNT 12.3 TH/MM3 (4.0-11.0)
[2016-03-27 10:00] LABS: ANION GAP 8 MEQ/L (5-15); AST (GOT) 30 U/L (15-37); BICARBONATE 36.4 MEQ/L (21.0-32.0); BLOOD UREA NITROGEN 18 MG/DL (7-18); CHLORIDE 95 MEQ/L (98-107); GLOMERULAR FILTRATION RATE 68 ML/MIN (>89); MAGNESIUM 2.1 MG/DL (1.5-2.5); POTASSIUM 3.8 MEQ/L (3.5-5.1); SODIUM (NA) 139 MEQ/L (136-145)
[2016-03-27 10:13] LABS: ALKALINE PHOSPHATASE 97 U/L (45-117); ALT (GPT) 19 U/L (12-78)
--- NOTE | 2016-03-27 12:48 | OTSOAPIP ---
TIME SESSION COMPLETED: 1130 TREATMENT TIME: 0 MINS. CHART REVIEWED. PATIENT REMAINS UNSTABLE AT THIS TIME PER RN. WILL FOLLOW UP WITH PATIENT TOMORROW. INTERDISCIPLINARY COMMUNICATION: REVIEWED ELECTRONIC MEDICAL RECORD, SPOKE WITH RN Therapist: Johanna Armando OTR/L Signature on file
[2016-03-27] MEDS: PANTOPRAZOLE SODIUM 40 MG VIAL IV PUSH SCH (17:43)
[2016-03-28] VITALS (19 sets, daily range): BP systolic 84–131; BP diastolic 50–70; PULSE 56–69; RESP 16; TEMP 97.8–99.1; O2SAT 90–95
[2016-03-28] MEDS: PROPOFOL 1000 MG/100 ML IV SCH ×11 (00:02→22:59)
[2016-03-28] MEDS: AZTREONAM INJ 2,000 MG in SODIUM CHLORIDE 0.9% INJ 100 ML IV SCH ×3 (02:38→17:32)
[2016-03-28] MEDS: CHLORHEXIDINE GLUCONATE 2 % 1 PACK (2 CLOTHS)(taper/protocol) TOP SCH (03:38)
[2016-03-28] MEDS: RESP: ALBUTEROL 2.5 MG/IPRATROPIUM 0.5 MG NEB (SCH) NEB ×4 (04:02→19:37)
[2016-03-28 04:57] LABS: AUTOMATED NEUTROPHIL # 18.3 TH/MM3 (1.8-7.7); BASOPHIL # 0.1 TH/MM3 (0-0.2); BASOPHIL % 0.3 % (0.0-2.0); HEMATOCRIT 45.1 % (39.0-51.0); HEMO FLAGS DIFF FINAL; LYMPH % 3.3 % (9.0-44.0); LYMPHOCYTE # 0.7 TH/MM3 (1.0-4.8); MEAN CELL VOLUME 85.1 FL (80.0-100.0); MEAN CORPUSCULAR HGB CONC 31.7 % (32.0-36.0); MONO % 5.2 % (0.0-8.0); NEUT % 91.2 % (16.0-70.0); PLATELET COUNT 289 TH/MM3 (150-450); RED CELL DISTRIBUTION WIDTH 14.6 % (11.6-17.2); WHITE BLOOD COUNT 20.1 TH/MM3 (4.0-11.0)
[2016-03-28] MEDS: ENOXAPARIN SODIUM 40 MG/0.4 ML SYRINGE SQ SCH ×2 (05:05→17:32)
[2016-03-28] MEDS: VANCOMYCIN INJ 2,000 MG in SODIUM CHLORID 0.9% 500 ML INJ 500 ML IV SCH (05:07)
[2016-03-28] MEDS: INSULIN NovoLIN REGULAR SUPPLEMENTAL SCALE SQ SCH ×4 (05:13→21:05)
--- NOTE | 2016-03-28 05:36 | RADRPT ---
EXAM DATE/TIME: 03/28/2016 04:12 [facility] COMPARISON: CHEST SINGLE AP, March 27, 2016, 7:30. INDICATIONS : Respiratory distress. MEDICAL HISTORY : Diabetes mellitus type 2. SURGICAL HISTORY : None. ENCOUNTER: Subsequent ACUITY: 3 days PAIN SCORE: Non-responsive. LOCATION: Bilateral chest FINDINGS: The support devices remain in place. There is no pneumothorax. There continues to be bibasilar infilt rates which are stable compared to the prior study. The heart size is enlarged but stable. There is s ome pulmonary venous congestion. CONCLUSION: No significant interval change. Rodrigo Martinez MD on March 28, 2016 at 5:34 Board Certified Radiologist. This report was verified electronically.
[2016-03-28 05:41] LABS: ALKALINE PHOSPHATASE 88 U/L (45-117); ALT (GPT) 28 U/L (12-78); ANION GAP 10 MEQ/L (5-15); AST (GOT) 110 U/L (15-37); BICARBONATE 34.3 MEQ/L (21.0-32.0); BLOOD UREA NITROGEN 22 MG/DL (7-18); CHLORIDE 96 MEQ/L (98-107); GLOMERULAR FILTRATION RATE 84 ML/MIN (>89); POTASSIUM 3.7 MEQ/L (3.5-5.1); SODIUM (NA) 140 MEQ/L (136-145); TOTAL BILIRUBIN ADULT 0.5 MG/DL (0.2-1.0)
[2016-03-28] MEDS: TIOTROPIUM BROMIDE 18 MCG INH INH SCH (07:42)
[2016-03-28] MEDS: POTASSIUM CL 40 MEQ/30 ML LIQ UDC PO SCH (08:17)
[2016-03-28] MEDS: methylPREDNISolone SOD SUCC 125 MG/2 ML VIAL IV PUSH SCH (08:17)
[2016-03-28] MEDS: FUROSEMIDE 20 MG/2 ML VIAL IV PUSH SCH ×2 (08:17→17:32)
[2016-03-28] MEDS: metFORMIN HCL 500 MG TAB PO SCH (08:18)
[2016-03-28] MEDS: BETAMETHASONE/CLOTRIMAZOLE CREAM 15 GM TOPICAL SCH ×2 (08:18→21:07)
[2016-03-28] MEDS: metroNIDAZOLE 500 MG INJ 100 ML IV SCH ×3 (08:18→23:00)
[2016-03-28] MEDS: BENEPROTEIN POWDER 1 PACK G-TUBE SCH ×3 (08:29→17:35)
[2016-03-28] MEDS: fentaNYL 2,500 MCG/NS 250 ML IV SCH (08:51)
[2016-03-28 08:54] LABS: BLOOD GAS BASE EXCESS 6.6 mmol/L (-2-2); BLOOD GAS CARBOXYHEMOGLOBIN 1.4 % (0-4); BLOOD GAS HCO3 30 mmol/L (22-26); BLOOD GAS METHEMOGLOBIN 1.3 % (0-2); BLOOD GAS O2 HGB SATURATION 96 % (90-100); BLOOD GAS PCO2 41 mmHg (38-42); BLOOD GAS PO2 118 mmHg (61-120); BLOOD GAS TOTAL HGB 14.7 G/DL (12.0-16.0); CRITICAL VALUE NO; OXYGEN DEVICE C; TEMP CORR TO 98.6
[2016-03-28 08:55] LABS: DRAW SITE ART LINE; FIO2 100 %; STAT YES; ULNAR PULSE PRESENT
--- NOTE | 2016-03-28 10:14 | RADRPT ---
EXAM DATE/TIME: 03/28/2016 09:57 [facility] COMPARISON: CT PULMONARY ANGIOGRAM, March 24, 2016, 12:47. CHEST SINGLE AP, March 28, 2016, 4:12. INDICATIONS : Evaluate for lung collapse, possible infiltrate. RADIATION DOSE: 19.79 CTDIvol (mGy) MEDICAL HISTORY : Diabetes mellitus type 2. SURGICAL HISTORY : None. ENCOUNTER: Initial ACUITY: 1 day PAIN SCALE: Non-responsive LOCATION: Bilateral chest TECHNIQUE: Volumetric scanning of the chest was performed. Using automated exposure control and adjustment of t he mA and/or kV according to patient size, radiation dose was kept as low as reasonably achievable to obtain optimal diagnostic quality images. FINDINGS: There is an ET tube in place terminating above the chanelle a nasogastric tube to the midline of the st omach as well as a left para-jugular catheter terminating in the superior vena cava. Cardiomegaly is suggested. There is bilateral lower lobe posterior consolidation with air bronchograms were prominent in the posterior basilar segment on the right than the left. This is a relatively new finding compar ed to CT scan 24 March 2016. CONCLUSION: Development areas of air bronchograms and consolidation more prominent in the right and left posterio r basilar segments of the lower lobes. ET tube above the chanelle. Bernard Hartman MD on March 28, 2016 at 10:09 Board Certified Radiologist. This report was verified electronically.
[2016-03-28] MEDS ORDERED: Vancomycin Consult Pharmacy 1 EA OTHER SCH (10:15)
--- NOTE | 2016-03-28 10:25 | HHI.CCPN ---
Subjective Remarks/Hospital Course Patient is a 50 years old obese male with past medical history significant for undiagnosed sleep apnea, super morbid obesity, type 2 diabetes was brought to the emergency department on 03/24/16 after feeling light headed and dizzy. On presentation here was found to be hypoxemic and ABG showed severe hypoxemia and hypercarbia. For a recent driving physical he was diagnosed with low oxygen saturations. Patient's oxygen saturation the ED was in the low 80s, which was confirmed on ABG with a oxygen saturation of 78% and PO2 of 46. CTA negative for PE. Patient was initiated on BiPAP therapy with consult to pulmonary Dr. Crane. His oxygenation improved but he continued to be hypercapnic. Today a.m. on nasal cannula his pH was 7.26 and PCO2 was increased at 99, patient was somnolent was placed back on BiPAP and repeat ABG at noon showed pH 7.26 PCO2 98 and pO2 70. This was on 16/02 BiPAP with FiO2 50%. Critical care was consulted. On my evaluation patient is somnolent but wakes up easily. I reduced the PEEP on BiPAP from 12-7 to facilitate better ventilation. A repeat ANG showed only minimal improvement, so decision made to intubate patient. Glidescope with #4 blade was used. Only propofol was used for induction. Initially I had a Grade 1-2 view, but I was unable to pass tube through the vocal cord to trachea in two attempts. Tube slipped out of Laryngeal opening both times. Dr Garrett intubated patient after NM paralysis with succinylcholine. Post intubation ABG showed improvement in hypercapnia and oxygenation. SUBJ 03/27/16: Patient remains intubated heavily sedated with propofol and fentanyl. Remained severely hypoxemic on 100% FiO2, PEEP12, chest x-ray shows bibasilar infiltrates. Flagyl added. We'll give 1 dose of vancomycin-Adjust antibiotics according to cultures. Patient super morbid obesity may prevent Prone therapy 03/28: Remains hypoxic but ABG shows marginal improvement in oxygenation. WBC increasing 20.1 today. Start vancomycin scheduled. Objective Vital Signs Date Time Temp Pulse Resp B/P Pulse Ox O2 Delivery O2 Flow Rate FiO2 03/28/16 07:29 91 100 03/28/16 06:00 59 03/28/16 04:00 98.6 16 131/50 03/26/16 09:03 Nasal Cannula 4.00 Intake and Output 03/27/16 03/27/16 03/28/16 08:00 16:00 00:00 Intake Total 723 ml 1525 ml 834 ml Output Total 1200 ml 1250 ml 850 ml Balance -477 ml 275 ml -16 ml Result Diagram: 03/28/16 0440 03/28/16 0440 Other Results Laboratory Tests Test 03/28/16 08:45 Blood Gas Puncture Site ART LINE Blood Gas Patient Temperature 98.6 Blood Gas HCO3 30 mmol/L (22-26) Blood Gas Base Excess 6.6 mmol/L (-2-2) Blood Gas Oxygen Saturation 96 % (90-100) Arterial Blood pH 7.48 (7.380-7.420) Arterial Blood Partial 41 mmHg (38-42) Pressure CO2 Arterial Blood Partial 118 mmHg Pressure O2 (61-120) Arterial Blood Oxygen Content 20.0 Vol % (12.0-20.0) Arterial Blood 1.4 % (0-4) Carboxyhemoglobin Arterial Blood Methemoglobin 1.3 % (0-2) Blood Gas Hemoglobin 14.7 G/DL (12.0-16.0) Oxygen Delivery Device C Blood Gas Ventilator Setting Blood Gas Inspired Oxygen 100 % Imaging Chest x-ray shows bibasilar atelectasis Objective Remarks GENERAL: Obese, heavily sedated on vent SKIN: Evidence of seborrheic dermatitis of the face HEAD: Atraumatic. Normocephalic. EYES: Pupils equal round and reactive. ENT: Nose without bleeding, orotracheally intubated NECK: Very Large neck. Trachea midline. LIJ central line in place CARDIOVASCULAR: Regular rate and rhythm without murmurs, gallops, or rubs. RESPIRATORY: Breath sounds equal bilaterally. Mild rhonchi. on ACV 16 PEEP GASTROINTESTINAL: Abdomen soft, obese MUSCULOSKELETAL: Extremities without clubbing, cyanosis, or edema. NEUROLOGICAL: Intubated heavily sedated with propofol and fentanyl for ventilator synchrony Date of Insertion: Mar 26, 2016 Side: Left Location: Internal, Jugular A/P Assessment and Plan ASSESSMENT: Acute hypoxemic and hypercarbic respiratory failure Obstructive sleep apnea/obesity hypoventilation syndrome Pulmonary edema Probable HCAP Severe morbid obesity Incidental Pulmonary nodule DM type 2 Seborrheic Dermatitis PLAN: NEURO: -On propofol and fentanyl postintubation. Start daily sedation vacation RESP: -Emergently intubated and placed on mechanical ventilation 03/26/16. (See intubation note) -ACV 16/600/12/ Titrate FiO2. -DuoNeb q6 and PRN -Daily CPAP trials, once FiO2 <50% -Solu-Medrol 40 mg IV q6-reduce to q12 -Empiric Azactam, Flagyl and vancomycin -Unable to do Prone therapy, patient too obese, abdominal circumference cut off is 60, patient is 74 -CT chest to evaluate infiltrate CV: -Chest x-ray shows probable pulmonary edema, cardiomegaly and new LLL infiltrate -2-D echo Nl EF, normal BNP -IV Lasix 20 every 12 hours GI: -Ttube feeds with Glucerna, IV Protonix -Colace for bowel regimen : -Monitor renal function closely. Becker catheter. ID: -Empirically placed on Azactam 2 g IV every 8 hour, IV Flagyl 500 mg IV every 8 hours and vancomycin pharmacy to dose. -F/U sputum culture and blood culture HEME: -Monitor CBC, CMP, coags ENDO: -Sliding-scale insulin, electrolyte replacement protocol PROPH: -Bilateral lower extremity SCDs. IV Protonix 40 mg daily. Lovenox 40 mg sq BID LINES: -LIJ central line and L radial art line in place CC time 40 min excluding procedures Baltazar Conner MD Mar 28, 2016 10:25
[2016-03-28] MEDS: INSULIN DETEMIR 100 UNITS/ML VIAL SQ SCH ×2 (10:44→21:05)
[2016-03-28 13:32] LABS: BLOOD GAS BASE EXCESS 6.2 mmol/L (-2-2); BLOOD GAS CARBOXYHEMOGLOBIN 1.4 % (0-4); BLOOD GAS HCO3 30 mmol/L (22-26); BLOOD GAS METHEMOGLOBIN 1.2 % (0-2); BLOOD GAS O2 HGB SATURATION 94 % (90-100); BLOOD GAS OXYGEN CONTENT 19.7 Vol % (12.0-20.0); BLOOD GAS PCO2 41 mmHg (38-42); BLOOD GAS PO2 108 mmHg (61-120); BLOOD GAS TOTAL HGB 14.9 G/DL (12.0-16.0); TEMP CORR TO 98.6
[2016-03-28 13:33] LABS: CRITICAL VALUE NO; DRAW SITE ART LINE; FIO2 70 %; OXYGEN DEVICE VENTILATOR
[2016-03-28 13:34] LABS: STAT NO
[2016-03-28] MEDS: PANTOPRAZOLE SODIUM 40 MG VIAL IV PUSH SCH (17:32)
[2016-03-28] MEDS: methylPREDNISolone SOD SUCC 40 MG/1 ML VIAL IV PUSH SCH (21:05)
[2016-03-29] VITALS (18 sets, daily range): BP systolic 102–119; BP diastolic 58–64; PULSE 59–72; RESP 14–15; TEMP 98.3–99.9; O2SAT 89–94
[2016-03-29] MEDS: RESP: ALBUTEROL 2.5 MG/IPRATROPIUM 0.5 MG NEB (SCH) NEB ×4 (01:01→19:13)
[2016-03-29] MEDS: PROPOFOL 1000 MG/100 ML IV SCH ×8 (01:16→20:55)
[2016-03-29] MEDS: AZTREONAM INJ 2,000 MG in SODIUM CHLORIDE 0.9% INJ 100 ML IV SCH ×3 (01:49→16:59)
[2016-03-29] MEDS: CHLORHEXIDINE GLUCONATE 2 % 1 PACK (2 CLOTHS)(taper/protocol) TOP SCH (03:42)
[2016-03-29] MEDS: VANCOMYCIN INJ 2,000 MG in SODIUM CHLORID 0.9% 500 ML INJ 500 ML IV SCH (03:42)
[2016-03-29] MEDS: fentaNYL 2,500 MCG/NS 250 ML IV SCH ×2 (03:55→18:06)
[2016-03-29 04:47] LABS: AUTOMATED NEUTROPHIL # 18.4 TH/MM3 (1.8-7.7); BASOPHIL % 0.1 % (0.0-2.0); HEMATOCRIT 43.3 % (39.0-51.0); HEMO FLAGS DIFF FINAL; LYMPH % 3.3 % (9.0-44.0); LYMPHOCYTE # 0.7 TH/MM3 (1.0-4.8); MEAN CELL VOLUME 85.3 FL (80.0-100.0); MEAN CORPUSCULAR HEMOGLOBIN 27.2 PG (27.0-34.0); MEAN CORPUSCULAR HGB CONC 31.9 % (32.0-36.0); MONO % 4.7 % (0.0-8.0); NEUT % 91.9 % (16.0-70.0); PLATELET COUNT 272 TH/MM3 (150-450); RED BLOOD COUNT 5.08 MIL/MM3 (4.50-5.90); RED CELL DISTRIBUTION WIDTH 14.9 % (11.6-17.2)
[2016-03-29 05:20] LABS: ALT (GPT) 38 U/L (12-78); ANION GAP 7 MEQ/L (5-15); AST (GOT) 108 U/L (15-37); BICARBONATE 33.7 MEQ/L (21.0-32.0); BLOOD UREA NITROGEN 28 MG/DL (7-18); CHLORIDE 99 MEQ/L (98-107); GLOMERULAR FILTRATION RATE 93 ML/MIN (>89); POTASSIUM 3.9 MEQ/L (3.5-5.1); SODIUM (NA) 140 MEQ/L (136-145)
[2016-03-29 05:22] LABS: ALKALINE PHOSPHATASE 83 U/L (45-117); TOTAL BILIRUBIN ADULT 0.4 MG/DL (0.2-1.0)
[2016-03-29] MEDS: ENOXAPARIN SODIUM 40 MG/0.4 ML SYRINGE SQ SCH ×2 (05:23→16:59)
--- NOTE | 2016-03-29 05:24 | RADRPT ---
EXAM DATE/TIME: 03/29/2016 04:27 [facility] COMPARISON: CHEST SINGLE AP, March 28, 2016, 4:12. INDICATIONS : Shortness of breath, possible pulmonary disease. MEDICAL HISTORY : Diabetes mellitus type II. SURGICAL HISTORY : None. ENCOUNTER: Subsequent ACUITY: 4 - 6 days PAIN SCORE: Non-responsive. LOCATION: Bilateral chest FINDINGS: The support devices are in place. No evidence of pneumothorax. There continue to be bibasilar infiltr ates without significant change. The heart size is enlarged but stable. No significant pleural effusi ons. The bony structures are stable. CONCLUSION: Bibasilar infiltrates without significant change. Rodrigo Martinez MD on March 29, 2016 at 5:22 Board Certified Radiologist. This report was verified electronically.
[2016-03-29] MEDS: INSULIN NovoLIN REGULAR SUPPLEMENTAL SCALE SQ SCH ×4 (05:25→20:56)
[2016-03-29 06:41] LABS: CRITICAL VALUE YES
[2016-03-29] MEDS: TIOTROPIUM BROMIDE 18 MCG INH INH SCH (07:35)
[2016-03-29 07:55] LABS: BLOOD GAS BASE EXCESS 5.2 mmol/L (-2-2); BLOOD GAS CARBOXYHEMOGLOBIN 1.5 % (0-4); BLOOD GAS HCO3 29 mmol/L (22-26); BLOOD GAS METHEMOGLOBIN 1.4 % (0-2); BLOOD GAS O2 HGB SATURATION 94 % (90-100); BLOOD GAS OXYGEN CONTENT 18.5 Vol % (12.0-20.0); BLOOD GAS PCO2 41 mmHg (38-42); BLOOD GAS PO2 89 mmHg (61-120); BLOOD GAS TOTAL HGB 13.9 G/DL (12.0-16.0); CRITICAL VALUE NO; OXYGEN DEVICE VENTILATOR; TEMP CORR TO 98.6
[2016-03-29 07:56] LABS: DRAW SITE ART LINE; FIO2 60 %; STAT YES; VENT SETTINGS AC/14/650/+12
[2016-03-29] MEDS: BENEPROTEIN POWDER 1 PACK G-TUBE SCH ×3 (08:06→16:59)
[2016-03-29] MEDS: POTASSIUM CL 40 MEQ/30 ML LIQ UDC PO SCH (08:06)
[2016-03-29] MEDS: methylPREDNISolone SOD SUCC 40 MG/1 ML VIAL IV PUSH SCH ×2 (08:06→20:55)
[2016-03-29] MEDS: INSULIN DETEMIR 100 UNITS/ML VIAL SQ SCH ×2 (08:06→20:56)
[2016-03-29] MEDS: BETAMETHASONE/CLOTRIMAZOLE CREAM 15 GM TOPICAL SCH ×2 (08:06→20:56)
[2016-03-29] MEDS: metroNIDAZOLE 500 MG INJ 100 ML IV SCH ×2 (08:06→15:08)
[2016-03-29] MEDS: FUROSEMIDE 20 MG/2 ML VIAL IV PUSH SCH ×3 (08:06→16:59)
[2016-03-29] MEDS: DOCUSATE SODIUM 100 MG/10 ML UDC PO SCH ×2 (08:11→20:55)
[2016-03-29] MEDS: SENNOSIDES SYRUP 8.8 MG/5 ML CUP PO SCH (08:11)
--- NOTE | 2016-03-29 08:43 | HHI.CCPN ---
Subjective Remarks/Hospital Course Patient is a 50 years old obese male with past medical history significant for undiagnosed sleep apnea, super morbid obesity, type 2 diabetes was brought to the emergency department on 03/24/16 after feeling light headed and dizzy. On presentation here was found to be hypoxemic and ABG showed severe hypoxemia and hypercarbia. For a recent driving physical he was diagnosed with low oxygen saturations. Patient's oxygen saturation the ED was in the low 80s, which was confirmed on ABG with a oxygen saturation of 78% and PO2 of 46. CTA negative for PE. Patient was initiated on BiPAP therapy with consult to pulmonary Dr. Crane. His oxygenation improved but he continued to be hypercapnic. Today a.m. on nasal cannula his pH was 7.26 and PCO2 was increased at 99, patient was somnolent was placed back on BiPAP and repeat ABG at noon showed pH 7.26 PCO2 98 and pO2 70. This was on 16/02 BiPAP with FiO2 50%. Critical care was consulted. On my evaluation patient is somnolent but wakes up easily. I reduced the PEEP on BiPAP from 12-7 to facilitate better ventilation. A repeat ANG showed only minimal improvement, so decision made to intubate patient. Glidescope with #4 blade was used. Only propofol was used for induction. Initially I had a Grade 1-2 view, but I was unable to pass tube through the vocal cord to trachea in two attempts. Tube slipped out of Laryngeal opening both times. Dr Garrett intubated patient after NM paralysis with succinylcholine. Post intubation ABG showed improvement in hypercapnia and oxygenation. SUBJ 03/27/16: Patient remains intubated heavily sedated with propofol and fentanyl. Remained severely hypoxemic on 100% FiO2, PEEP12, chest x-ray shows bibasilar infiltrates. Flagyl added. We'll give 1 dose of vancomycin-Adjust antibiotics according to cultures. Patient super morbid obesity may prevent Prone therapy 03/28: Remains hypoxic but ABG shows marginal improvement in oxygenation. WBC increasing 20.1 today. Start vancomycin scheduled. 03/29: Oxygenation is slightly improved. FiO2 reduced to 50% today. Chest x- ray remains unchanged. On sedation hold patient does wake up and follow commands. WBC count remains at 20 Objective Vital Signs Date Time Temp Pulse Resp B/P Pulse Ox O2 Delivery O2 Flow Rate FiO2 03/29/16 07:43 94 60 03/29/16 07:43 Ventilator 03/29/16 06:00 59 03/29/16 04:00 98.8 14 113/61 03/26/16 09:03 4.00 Intake and Output 03/28/16 03/28/16 03/29/16 08:00 16:00 00:00 Intake Total 985 ml 1493 ml 1161 ml Output Total 250 ml 1225 ml 1100 ml Balance 735 ml 268 ml 61 ml Result Diagram: 03/29/16 0320 03/29/16 0320 Other Results Laboratory Tests Test 03/28/16 03/28/16 03/29/16 08:45 13:20 07:50 Blood Gas Puncture Site ART LINE ART LINE ART LINE Blood Gas Patient Temperature 98.6 98.6 98.6 Blood Gas HCO3 30 mmol/L 30 mmol/L 29 mmol/L (22-26) (22-26) (22-26) Blood Gas Base Excess 6.6 mmol/L 6.2 mmol/L 5.2 mmol/L (-2-2) (-2-2) (-2-2) Blood Gas Oxygen Saturation 96 % (90-100) 94 % (90-100) 94 % (90-100) Arterial Blood pH 7.48 7.48 7.47 (7.380-7.420) (7.380-7.420) (7.380-7.420) Arterial Blood Partial 41 mmHg (38-42) 41 mmHg (38-42) 41 mmHg (38-42) Pressure CO2 Arterial Blood Partial 118 mmHg 108 mmHg 89 mmHg Pressure O2 (61-120) (61-120) (61-120) Arterial Blood Oxygen Content 20.0 Vol % 19.7 Vol % 18.5 Vol % (12.0-20.0) (12.0-20.0) (12.0-20.0) Arterial Blood 1.4 % (0-4) 1.4 % (0-4) 1.5 % (0-4) Carboxyhemoglobin Arterial Blood Methemoglobin 1.3 % (0-2) 1.2 % (0-2) 1.4 % (0-2) Blood Gas Hemoglobin 14.7 G/DL 14.9 G/DL 13.9 G/DL (12.0-16.0) (12.0-16.0) (12.0-16.0) Oxygen Delivery Device C VENTILATOR VENTILATOR Blood Gas Ventilator Setting 650/14/16PEEP AC/14/650/+12 Blood Gas Inspired Oxygen 100 % 70 % 60 % Imaging Chest x-ray shows bibasilar atelectasis Objective Remarks GENERAL: Obese, heavily sedated on vent. On holding sedation he does wake up and follow commands SKIN: Evidence of seborrheic dermatitis of the face HEAD: Atraumatic. Normocephalic. EYES: Pupils equal round and reactive. ENT: Nose without bleeding, orotracheally intubated NECK: Very Large neck. Trachea midline. LIJ central line in place CARDIOVASCULAR: Regular rate and rhythm without murmurs, gallops, or rubs. RESPIRATORY: Breath sounds equal bilaterally. Mild rhonchi. on ACV 14 PEEP 12 tidal volume 650 FiO2 down to 50% today GASTROINTESTINAL: Abdomen soft, obese, nontender. Severe central obesity MUSCULOSKELETAL: Extremities without clubbing, cyanosis, or edema. NEUROLOGICAL: Intubated heavily sedated with propofol and fentanyl for ventilator synchrony. On lightening sedation patient wakes up follows commands Urinary Catheter: Yes Assessment to: Continue Vascular Central Line Catheter: Yes Assessment to: Continue Date of Insertion: Mar 26, 2016 Side: Left Location: Internal, Jugular A/P Assessment and Plan ASSESSMENT: Acute hypoxemic and hypercarbic respiratory failure Obstructive sleep apnea/obesity hypoventilation syndrome Staph aureus pneumonia Severe sepsis Severe morbid obesity Fluid overload/pulmonary edema Incidental Pulmonary nodule DM type 2 Seborrheic Dermatitis PLAN: NEURO: -On propofol and fentanyl postintubation. Start daily sedation vacation RESP: -Emergently intubated and placed on mechanical ventilation 03/26/16. (See intubation note) -ACV 16/600/12/ Titrate FiO2 to keep SaO2>88%. -DuoNeb q6 and PRN -Daily CPAP trials, once FiO2 consistently below <50% -Solu-Medrol 40 mg IV q12 -Empiric Azactam, Flagyl and vancomycin -Unable to do Prone therapy, patient too obese, abdominal circumference cut off is 60, patient is 74 inches -CT chest to evaluate infiltrate-bibasilar pneumonia CV: -Chest x-ray shows probable pulmonary edema, cardiomegaly and new LLL infiltrate -2-D echo Nl EF, normal BNP -IV Lasix 20 every 12 hours-increased to 40 every 12 to achieve negative balance GI: -Tube feeds with Glucerna, IV Protonix -Colace, senna for bowel regimen : -Monitor renal function closely. Becker catheter. -IV Lasix as above ID: -Empirically placed on Azactam 2 g IV every 8 hour, IV Flagyl 500 mg IV every 8 hours and vancomycin pharmacy to dose. -Sputum culture with staph aureus-consolidate antibiotics once sensitivities are back -/ bottles GPC probable contamination HEME: -Monitor CBC, CMP, coags ENDO: -Sliding-scale insulin, electrolyte replacement protocol PROPH: -Bilateral lower extremity SCDs. IV Protonix 40 mg daily. Lovenox 40 mg sq BID LINES: -LIJ central line and L radial art line in place CC time 40 min excluding procedures Baltazar Conner MD Mar 29, 2016 08:43
[2016-03-29] MEDS: PANTOPRAZOLE SODIUM 40 MG VIAL IV PUSH SCH (16:59)
[2016-03-29] MEDS ORDERED: FUROSEMIDE 40 MG/4 ML VIAL IV PUSH SCH (18:00)
[2016-03-29] MEDS: SODIUM CHLORIDE 0.9% FLUSH 5 ML FLUSH IVF PRN (20:56)
[2016-03-30] VITALS (19 sets, daily range): BP systolic 86–120; BP diastolic 60–96; PULSE 62–75; RESP 14–16; TEMP 98.3–100.1; O2SAT 89–92
[2016-03-30] MEDS: metroNIDAZOLE 500 MG INJ 100 ML IV SCH ×4 (00:09→23:54)
[2016-03-30] MEDS: PROPOFOL 1000 MG/100 ML IV SCH ×8 (00:10→22:40)
[2016-03-30] MEDS: AZTREONAM INJ 2,000 MG in SODIUM CHLORIDE 0.9% INJ 100 ML IV SCH ×3 (02:38→17:32)
[2016-03-30] MEDS: RESP: ALBUTEROL 2.5 MG/IPRATROPIUM 0.5 MG NEB (SCH) NEB ×4 (03:40→19:33)
[2016-03-30] MEDS ORDERED: PHARMACY ORDERED LAB XX ONE (03:45)
[2016-03-30] MEDS: VANCOMYCIN INJ 2,000 MG in SODIUM CHLORID 0.9% 500 ML INJ 500 ML IV SCH (04:04)
--- NOTE | 2016-03-30 05:09 | RADRPT ---
EXAM DATE/TIME: 03/30/2016 03:49 [facility] COMPARISON: CHEST SINGLE AP, March 29, 2016, 4:27. INDICATIONS : Shortness of breath. MEDICAL HISTORY : Diabetes mellitus type II. SURGICAL HISTORY : None. ENCOUNTER: Subsequent ACUITY: 1 week PAIN SCORE: Non-responsive. LOCATION: Bilateral chest FINDINGS: Endotracheal tube and NG tube are again seen. Left jugular line tip overlies the SVC. There is cardio megaly and basilar airspace disease is suspected. This is stable. CONCLUSION: No significant change has occurred. Henrry Andrea MD on March 30, 2016 at 5:08 Board Certified Radiologist. This report was verified electronically.
[2016-03-30 05:13] LABS: AUTOMATED NEUTROPHIL # 13.6 TH/MM3 (1.8-7.7); BASOPHIL % 0.2 % (0.0-2.0); EOSINOPHIL % 0.3 % (0.0-4.0); HEMATOCRIT 43.3 % (39.0-51.0); HEMO FLAGS DIFF FINAL; LYMPHOCYTE # 1.3 TH/MM3 (1.0-4.8); MEAN CELL VOLUME 84.9 FL (80.0-100.0); MEAN CORPUSCULAR HEMOGLOBIN 27.5 PG (27.0-34.0); MEAN CORPUSCULAR HGB CONC 32.4 % (32.0-36.0); MONO % 6.3 % (0.0-8.0); NEUT % 85.2 % (16.0-70.0); PLATELET COUNT 249 TH/MM3 (150-450); RED CELL DISTRIBUTION WIDTH 15.1 % (11.6-17.2); WHITE BLOOD COUNT 15.9 TH/MM3 (4.0-11.0)
[2016-03-30 05:29] LABS: BLOOD GAS BASE EXCESS 5.3 mmol/L (-2-2); BLOOD GAS CARBOXYHEMOGLOBIN 1.6 % (0-4); BLOOD GAS HCO3 29 mmol/L (22-26); BLOOD GAS METHEMOGLOBIN 1.3 % (0-2); BLOOD GAS OXYGEN CONTENT 17.8 Vol % (12.0-20.0); BLOOD GAS PCO2 42 mmHg (38-42); BLOOD GAS PO2 73 mmHg (61-120); BLOOD GAS TOTAL HGB 13.8 G/DL (12.0-16.0); CRITICAL VALUE NO; OXYGEN DEVICE VENTILATOR; TEMP CORR TO 98.6
[2016-03-30 05:30] LABS: BLOOD GAS O2 HGB SATURATION 92 % (90-100); DRAW SITE ART LINE; FIO2 50 %; STAT NO; VENT SETTINGS AC 14/650/12PEEP
[2016-03-30 05:36] LABS: ANION GAP 6 MEQ/L (5-15); AST (GOT) 72 U/L (15-37); BICARBONATE 34.7 MEQ/L (21.0-32.0); BLOOD UREA NITROGEN 32 MG/DL (7-18); CHLORIDE 99 MEQ/L (98-107); GLOMERULAR FILTRATION RATE 90 ML/MIN (>89); POTASSIUM 3.3 MEQ/L (3.5-5.1); SODIUM (NA) 140 MEQ/L (136-145)
[2016-03-30 05:40] LABS: ALKALINE PHOSPHATASE 82 U/L (45-117); ALT (GPT) 46 U/L (12-78); TOTAL BILIRUBIN ADULT 0.5 MG/DL (0.2-1.0)
[2016-03-30] MEDS: INSULIN NovoLIN REGULAR SUPPLEMENTAL SCALE SQ SCH ×4 (06:00→21:13)
[2016-03-30] MEDS: ENOXAPARIN SODIUM 40 MG/0.4 ML SYRINGE SQ SCH ×2 (06:00→17:33)
--- NOTE | 2016-03-30 07:49 | HHI.CCPN ---
Subjective Remarks/Hospital Course Patient is a 50 years old obese male with past medical history significant for undiagnosed sleep apnea, super morbid obesity, type 2 diabetes was brought to the emergency department on 03/24/16 after feeling light headed and dizzy. On presentation here was found to be hypoxemic and ABG showed severe hypoxemia and hypercarbia. For a recent driving physical he was diagnosed with low oxygen saturations. Patient's oxygen saturation the ED was in the low 80s, which was confirmed on ABG with a oxygen saturation of 78% and PO2 of 46. CTA negative for PE. Patient was initiated on BiPAP therapy with consult to pulmonary Dr. Crane. His oxygenation improved but he continued to be hypercapnic. Today a.m. on nasal cannula his pH was 7.26 and PCO2 was increased at 99, patient was somnolent was placed back on BiPAP and repeat ABG at noon showed pH 7.26 PCO2 98 and pO2 70. This was on 16 BiPAP with FiO2 50%. Critical care was consulted. On my evaluation patient is somnolent but wakes up easily. I reduced the PEEP on BiPAP from 12-7 to facilitate better ventilation. A repeat ANG showed only minimal improvement, so decision made to intubate patient. Glidescope with #4 blade was used. Only propofol was used for induction. Initially I had a Grade 1-2 view, but I was unable to pass tube through the vocal cord to trachea in two attempts. Tube slipped out of Laryngeal opening both times. Dr Garrett intubated patient after NM paralysis with succinylcholine. Post intubation ABG showed improvement in hypercapnia and oxygenation. SUBJ 03/27/16: Patient remains intubated heavily sedated with propofol and fentanyl. Remained severely hypoxemic on 100% FiO2, PEEP12, chest x-ray shows bibasilar infiltrates. Flagyl added. We'll give 1 dose of vancomycin-Adjust antibiotics according to cultures. Patient super morbid obesity may prevent Prone therapy 03/28: Remains hypoxic but ABG shows marginal improvement in oxygenation. WBC increasing 20.1 today. Start vancomycin scheduled. 03/29: Oxygenation is slightly improved. FiO2 reduced to 50% today. Chest x- ray remains unchanged. On sedation hold patient does wake up and follow commands. WBC count remains at 20 03/30 No acute events overnight. Sedated with Diprivan and Fentanyl. Had T: 100.1 at 4 am. WBC trending down 15.9 today from 20. Objective Vital Signs Date Time Temp Pulse Resp B/P Pulse Ox O2 Delivery O2 Flow Rate FiO2 03/30/16 06:00 66 03/30/16 04:12 90 50 03/30/16 04:00 100.1 16 116/67 86/75 03/29/16 07:43 Ventilator 03/26/16 09:03 4.00 Intake and Output 03/29/16 03/29/16 03/30/16 08:00 16:00 00:00 Intake Total 1451 ml 1102 ml 1105 ml Output Total 425 ml 2825 ml 1550.0 ml Balance 1026 ml -1723 ml -445.0 ml Result Diagram: 03/30/16 0345 03/30/16 0345 Other Results Laboratory Tests Test 03/29/16 03/30/16 03/30/16 07:50 03:45 05:18 Blood Gas Puncture Site ART LINE ART LINE Blood Gas Patient Temperature 98.6 98.6 Blood Gas HCO3 29 mmol/L 29 mmol/L Blood Gas Base Excess 5.2 mmol/L 5.3 mmol/L Blood Gas Oxygen Saturation 94 % 92 % Arterial Blood pH 7.47 7.46 Arterial Blood Partial 41 mmHg 42 mmHg Pressure CO2 Arterial Blood Partial 89 mmHg 73 mmHg Pressure O2 Arterial Blood Oxygen Content 18.5 Vol % 17.8 Vol % Arterial Blood 1.5 % 1.6 % Carboxyhemoglobin Arterial Blood Methemoglobin 1.4 % 1.3 % Blood Gas Hemoglobin 13.9 G/DL 13.8 G/DL Oxygen Delivery Device VENTILATOR VENTILATOR Blood Gas Ventilator Setting /650/+12 650/12PEEP Blood Gas Inspired Oxygen 60 % 50 % White Blood Count 15.9 TH/MM3 Red Blood Count 5.10 MIL/MM3 Hemoglobin 14.0 GM/DL Hematocrit 43.3 % Mean Corpuscular Volume 84.9 FL Mean Corpuscular Hemoglobin 27.5 PG Mean Corpuscular Hemoglobin 32.4 % Concent Red Cell Distribution Width 15.1 % Platelet Count 249 TH/MM3 Mean Platelet Volume 9.1 FL Neutrophils (%) (Auto) 85.2 % Lymphocytes (%) (Auto) 8.0 % Monocytes (%) (Auto) 6.3 % Eosinophils (%) (Auto) 0.3 % Basophils (%) (Auto) 0.2 % Neutrophils # (Auto) 13.6 TH/MM3 Lymphocytes # (Auto) 1.3 TH/MM3 Monocytes # (Auto) 1.0 TH/MM3 Eosinophils # (Auto) 0.0 TH/MM3 Basophils # (Auto) 0.0 TH/MM3 CBC Comment DIFF FINAL Differential Comment Sodium Level 140 MEQ/L Potassium Level 3.3 MEQ/L Chloride Level 99 MEQ/L Carbon Dioxide Level 34.7 MEQ/L Anion Gap 6 MEQ/L Blood Urea Nitrogen 32 MG/DL Creatinine 0.89 MG/DL Estimat Glomerular Filtration 90 ML/MIN Rate Random Glucose 171 MG/DL Calcium Level 8.1 MG/DL Total Bilirubin 0.5 MG/DL Aspartate Amino Transf 72 U/L (AST/SGOT) Alanine Aminotransferase 46 U/L (ALT/SGPT) Alkaline Phosphatase 82 U/L Total Protein 6.9 GM/DL Albumin 2.9 GM/DL Vancomycin Level Trough 5.0 MCG/ML Imaging Last Impressions Chest X-Ray 03/30/16 0600 Signed Impressions: Service Date/Time: Wednesday, March 30, 2016 03:49 - CONCLUSION: No significant change has occurred. Henrry Andrea MD Chest CT 03/28/16 0836 Signed Impressions: Service Date/Time: Monday, March 28, 2016 09:57 - CONCLUSION: Development areas of air bronchograms and consolidation more prominent in the right and left posterior basilar segments of the lower lobes. ET tube above the chanelle. Bernard Hartman MD CT Angiography 03/24/16 1121 Signed Impressions: Service Date/Time: Thursday, March 24, 2016 12:47 - CONCLUSION: 1. There is respiratory motion artifact but no PE is identified through most of the segmental level pulmonary arteries. 2. Mildly enlarged main pulmonary artery may indicate pulmonary arterial hypertension. 3. 11 mm left lower lobe noncalcified pulmonary nodule. Suggest correlation with any prior imaging studies that could confirm longer-term stability. If none are available consider short-term followup noncontrast chest CT in approximately 3 months. Ubaldo Rodas MD Objective Remarks GENERAL: Obese, heavily sedated on vent. On holding sedation he does wake up and follow commands SKIN: Evidence of seborrheic dermatitis of the face HEAD: Atraumatic. Normocephalic. EYES: Pupils equal round and reactive. ENT: Nose without bleeding, orotracheally intubated NECK: Very Large neck. Trachea midline. LIJ central line in place CARDIOVASCULAR: Regular rate and rhythm without murmurs, gallops, or rubs. RESPIRATORY: Breath sounds equal bilaterally. Mild rhonchi. on ACV 14 PEEP 12 tidal volume 650 FiO2 down to 50% today GASTROINTESTINAL: Abdomen soft, obese, nontender. Severe central obesity MUSCULOSKELETAL: Extremities without clubbing, cyanosis, or edema. NEUROLOGICAL: Intubated heavily sedated with propofol and fentanyl for ventilator synchrony. On lightening sedation patient wakes up follows commands Date of Insertion: Mar 26, 2016 Side: Left Location: Internal, Jugular A/P Assessment and Plan ASSESSMENT: Acute hypoxemic and hypercarbic respiratory failure Obstructive sleep apnea/obesity hypoventilation syndrome Staph aureus pneumonia Severe sepsis Severe morbid obesity Fluid overload/pulmonary edema Incidental Pulmonary nodule DM type 2 Seborrheic Dermatitis PLAN: NEURO: -On propofol and fentanyl postintubation. Daily sedation vacation and monitor neuro status. RESP: -Emergently intubated and placed on mechanical ventilation 03/26/16 -Continue with vent support and keep sat >92%. On ACV with RR 14, TV 65-, PEEP: 12, FIO2 50%. Decrease PEEP: 10 as luna -DuoNeb q6 and PRN -Daily CPAP trials, once FiO2 consistently below <50% -Solu-Medrol 40 mg IV q12 -Empiric Azactam, Flagyl and vancomycin -Unable to do Prone therapy, patient too obese, abdominal circumference cut off is 60, patient is 74 inches -CT chest to evaluate infiltrate-bibasilar pneumonia CV: -Monitor HR and BP keep MAP>65mmHg -2-D echo Nl EF, normal BNP GI: -Tube feeds with Glucerna 1.5@45ml/hr, IV Protonix -Colace, senna for bowel regimen : -Monitor renal function, I/O's, electrolytes replacement per protocol. -IV Lasix d/c yesterday. Will need K replacement today ID: -Continue with abx ( [email or web address]. [email or web address]) check UA with cx if indicated and sputum cx -03/27 Sputum culture with staph aureus -03/26 03/07 bottles coag negative staph probable contamination HEME: -Monitor CBC, CMP, coags ENDO: -Sliding-scale insulin, electrolyte replacement protocol PROPH: -Bilateral lower extremity SCDs. IV Protonix 40 mg daily. Lovenox 40 mg sq BID LINES: -LIJ central line and L radial art line in place CC time 30 min excluding procedures Rob Malloy MD Mar 30, 2016 07:49
[2016-03-30] MEDS: BENEPROTEIN POWDER 1 PACK G-TUBE SCH ×3 (07:52→17:32)
[2016-03-30] MEDS: POTASSIUM CL 40 MEQ/30 ML LIQ UDC PO SCH (07:53)
[2016-03-30] MEDS: TIOTROPIUM BROMIDE 18 MCG INH INH SCH (07:53)
[2016-03-30] MEDS: POTASSIUM CHLOR 40 MEQ PREMIX 100 ML IV PRN (07:54)
[2016-03-30] MEDS: BETAMETHASONE/CLOTRIMAZOLE CREAM 15 GM TOPICAL SCH ×2 (07:54→21:13)
[2016-03-30] MEDS: methylPREDNISolone SOD SUCC 40 MG/1 ML VIAL IV PUSH SCH ×2 (07:54→21:13)
[2016-03-30] MEDS: SENNOSIDES SYRUP 8.8 MG/5 ML CUP PO SCH (07:54)
[2016-03-30] MEDS: INSULIN DETEMIR 100 UNITS/ML VIAL SQ SCH ×2 (07:54→21:13)
[2016-03-30] MEDS: DOCUSATE SODIUM 100 MG/10 ML UDC PO SCH ×2 (07:54→21:12)
[2016-03-30] MEDS: FUROSEMIDE 20 MG/2 ML VIAL IV PUSH SCH ×2 (07:55→17:33)
[2016-03-30 11:45] LABS: BACTERIA, URINE RARE /hpf; BLOOD, URINE MOD (NEG); GLUCOSE,URINE NEG (NEG); KETONE, URINE NEG (NEG); NITRITE,URINE NEG (NEG); SQUAMOUS EPITHELIAL CELL URINE <1 /hpf (0-5); URINE COLOR YELLOW (YELLW/STRAW)
[2016-03-30 11:46] LABS: COMMENT (UR) CATH-CULTURE IND; CULTURE IF INDICATED CATH CULTURE IND
[2016-03-30] MEDS: fentaNYL 2,500 MCG/NS 250 ML IV SCH (12:59)
[2016-03-30] MEDS: VANCOMYCIN INJ 1,750 MG in SODIUM CHLORID 0.9% 500 ML INJ 500 ML IV SCH (16:50)
[2016-03-30] MEDS: ACETAMINOPHEN 650 MG/20.3 ML UDC PO PRN ×2 (17:32→23:54)
[2016-03-30] MEDS: PANTOPRAZOLE SODIUM 40 MG VIAL IV PUSH SCH (17:33)
[2016-03-31] VITALS (18 sets, daily range): BP systolic 81–137; BP diastolic 56–89; PULSE 2–77; RESP 14; TEMP 98.4–99.6; O2SAT 88–93
[2016-03-31] MEDS: AZTREONAM INJ 2,000 MG in SODIUM CHLORIDE 0.9% INJ 100 ML IV SCH ×2 (01:03→10:23)
[2016-03-31] MEDS: fentaNYL 2,500 MCG/NS 250 ML IV SCH ×2 (01:04→15:08)
[2016-03-31] MEDS: PROPOFOL 1000 MG/100 ML IV SCH ×8 (01:04→21:18)
[2016-03-31] MEDS: VANCOMYCIN INJ 1,750 MG in SODIUM CHLORID 0.9% 500 ML INJ 500 ML IV SCH (03:19)
[2016-03-31] MEDS: RESP: ALBUTEROL 2.5 MG/IPRATROPIUM 0.5 MG NEB (SCH) NEB ×4 (03:29→19:40)
[2016-03-31] MEDS: ACETAMINOPHEN 650 MG/20.3 ML UDC PO PRN (04:17)
[2016-03-31 04:55] LABS: AUTOMATED NEUTROPHIL # 19.4 TH/MM3 (1.8-7.7); BASOPHIL % 0.2 % (0.0-2.0); EOSINOPHIL % 0.1 % (0.0-4.0); HEMATOCRIT 43.8 % (39.0-51.0); HEMO FLAGS DIFF FINAL; LYMPH % 2.7 % (9.0-44.0); LYMPHOCYTE # 0.6 TH/MM3 (1.0-4.8); MEAN CELL VOLUME 85.5 FL (80.0-100.0); MEAN CORPUSCULAR HEMOGLOBIN 28.1 PG (27.0-34.0); MEAN CORPUSCULAR HGB CONC 32.8 % (32.0-36.0); MONO % 3.4 % (0.0-8.0); NEUT % 93.6 % (16.0-70.0); PLATELET COUNT 241 TH/MM3 (150-450); RED BLOOD COUNT 5.12 MIL/MM3 (4.50-5.90); RED CELL DISTRIBUTION WIDTH 15.3 % (11.6-17.2); WHITE BLOOD COUNT 20.8 TH/MM3 (4.0-11.0)
[2016-03-31 05:07] LABS: ALT (GPT) 52 U/L (12-78); ANION GAP 7 MEQ/L (5-15); AST (GOT) 43 U/L (15-37); BICARBONATE 32.4 MEQ/L (21.0-32.0); BLOOD UREA NITROGEN 30 MG/DL (7-18); CHLORIDE 98 MEQ/L (98-107); GLOMERULAR FILTRATION RATE 95 ML/MIN (>89); MAGNESIUM 2.7 MG/DL (1.5-2.5); POTASSIUM 4.1 MEQ/L (3.5-5.1); SODIUM (NA) 137 MEQ/L (136-145)
[2016-03-31 05:09] LABS: ALKALINE PHOSPHATASE 82 U/L (45-117); TOTAL BILIRUBIN ADULT 0.6 MG/DL (0.2-1.0)
[2016-03-31] MEDS: ENOXAPARIN SODIUM 40 MG/0.4 ML SYRINGE SQ SCH ×2 (06:09→17:38)
[2016-03-31] MEDS: INSULIN NovoLIN REGULAR SUPPLEMENTAL SCALE SQ SCH ×3 (06:09→17:43)
[2016-03-31] MEDS: DOCUSATE SODIUM 100 MG/10 ML UDC PO SCH ×2 (08:40→21:17)
[2016-03-31] MEDS: SENNOSIDES SYRUP 8.8 MG/5 ML CUP PO SCH (08:40)
[2016-03-31] MEDS: POTASSIUM CL 40 MEQ/30 ML LIQ UDC PO SCH (08:40)
[2016-03-31] MEDS: methylPREDNISolone SOD SUCC 40 MG/1 ML VIAL IV PUSH SCH ×2 (08:40→21:18)
[2016-03-31] MEDS: TIOTROPIUM BROMIDE 18 MCG INH INH SCH (08:41)
[2016-03-31] MEDS: BENEPROTEIN POWDER 1 PACK G-TUBE SCH ×3 (08:41→17:36)
[2016-03-31] MEDS: FUROSEMIDE 20 MG/2 ML VIAL IV PUSH SCH ×2 (08:41→17:37)
[2016-03-31] MEDS: INSULIN DETEMIR 100 UNITS/ML VIAL SQ SCH ×2 (08:42→21:17)
[2016-03-31] MEDS: metroNIDAZOLE 500 MG INJ 100 ML IV SCH ×2 (08:42→15:08)
[2016-03-31] MEDS: BETAMETHASONE/CLOTRIMAZOLE CREAM 15 GM TOPICAL SCH ×2 (08:45→21:17)
--- NOTE | 2016-03-31 09:25 | HHI.CCPN ---
Subjective Remarks/Hospital Course Patient is a 50 years old obese male with past medical history significant for undiagnosed sleep apnea, super morbid obesity, type 2 diabetes was brought to the emergency department on 03/24/16 after feeling light headed and dizzy. On presentation here was found to be hypoxemic and ABG showed severe hypoxemia and hypercarbia. For a recent driving physical he was diagnosed with low oxygen saturations. Patient's oxygen saturation the ED was in the low 80s, which was confirmed on ABG with a oxygen saturation of 78% and PO2 of 46. CTA negative for PE. Patient was initiated on BiPAP therapy with consult to pulmonary Dr. Crane. His oxygenation improved but he continued to be hypercapnic. Today a.m. on nasal cannula his pH was 7.26 and PCO2 was increased at 99, patient was somnolent was placed back on BiPAP and repeat ABG at noon showed pH 7.26 PCO2 98 and pO2 70. This was on 16 BiPAP with FiO2 50%. Critical care was consulted. On my evaluation patient is somnolent but wakes up easily. I reduced the PEEP on BiPAP from 12-7 to facilitate better ventilation. A repeat ANG showed only minimal improvement, so decision made to intubate patient. Glidescope with #4 blade was used. Only propofol was used for induction. Initially I had a Grade 1-2 view, but I was unable to pass tube through the vocal cord to trachea in two attempts. Tube slipped out of Laryngeal opening both times. Dr Garrett intubated patient after NM paralysis with succinylcholine. Post intubation ABG showed improvement in hypercapnia and oxygenation. SUBJ 03/27/16: Patient remains intubated heavily sedated with propofol and fentanyl. Remained severely hypoxemic on 100% FiO2, PEEP12, chest x-ray shows bibasilar infiltrates. Flagyl added. We'll give 1 dose of vancomycin-Adjust antibiotics according to cultures. Patient super morbid obesity may prevent Prone therapy 03/28: Remains hypoxic but ABG shows marginal improvement in oxygenation. WBC increasing 20.1 today. Start vancomycin scheduled. 03/29: Oxygenation is slightly improved. FiO2 reduced to 50% today. Chest x- ray remains unchanged. On sedation hold patient does wake up and follow commands. WBC count remains at 20 03/30 No acute events overnight. Sedated with Diprivan and Fentanyl. Had T: 100.1 at 4 am. WBC trending down 15.9 today from 20. 03/31 Patient remains sedated with Diprivan, Fentanyl and intubated. Tmax 100.1. Patient required increase O2 overnight now on ACV with PEEP: 12 and FIO2 70%. Objective Vital Signs Date Time Temp Pulse Resp B/P Pulse Ox O2 Delivery O2 Flow Rate FiO2 03/31/16 07:23 93 70 03/31/16 06:00 64 03/31/16 04:00 99.6 14 124/65 137/81 03/29/16 07:43 Ventilator Intake and Output 03/30/16 03/30/16 03/31/16 08:00 16:00 00:00 Intake Total 1486 ml 1348 ml 1959 ml Output Total 450.0 ml 2000 ml 1750.0 ml Balance 1036.0 ml -652 ml 209.0 ml Result Diagram: 03/31/16 0320 03/31/16 0320 Other Results Laboratory Tests Test 03/30/16 03/30/16 03/31/16 11:00 18:30 03:20 Urine Color YELLOW Urine Turbidity CLEAR Urine pH 7.0 Urine Specific [place] 1.018 Urine Protein NEG mg/dL Urine Glucose (UA) NEG mg/dL Urine Ketones NEG mg/dL Urine Occult Blood MOD Urine Nitrite NEG Urine Bilirubin NEG Urine Urobilinogen LESS THAN 2.0 MG/DL Urine Leukocyte Esterase LARGE Urine RBC /hpf Urine WBC 17 /hpf Urine Squamous Epithelial <1 /hpf Cells Urine Bacteria RARE /hpf Microscopic Urinalysis Comment CATH-CULTURE IND Potassium Level 3.6 MEQ/L 4.1 MEQ/L White Blood Count 20.8 TH/MM3 Red Blood Count 5.12 MIL/MM3 Hemoglobin 14.4 GM/DL Hematocrit 43.8 % Mean Corpuscular Volume 85.5 FL Mean Corpuscular Hemoglobin 28.1 PG Mean Corpuscular Hemoglobin 32.8 % Concent Red Cell Distribution Width 15.3 % Platelet Count 241 TH/MM3 Mean Platelet Volume 9.7 FL Neutrophils (%) (Auto) 93.6 % Lymphocytes (%) (Auto) 2.7 % Monocytes (%) (Auto) 3.4 % Eosinophils (%) (Auto) 0.1 % Basophils (%) (Auto) 0.2 % Neutrophils # (Auto) 19.4 TH/MM3 Lymphocytes # (Auto) 0.6 TH/MM3 Monocytes # (Auto) 0.7 TH/MM3 Eosinophils # (Auto) 0.0 TH/MM3 Basophils # (Auto) 0.0 TH/MM3 CBC Comment DIFF FINAL Differential Comment Sodium Level 137 MEQ/L Chloride Level 98 MEQ/L Carbon Dioxide Level 32.4 MEQ/L Anion Gap 7 MEQ/L Blood Urea Nitrogen 30 MG/DL Creatinine 0.85 MG/DL Estimat Glomerular Filtration 95 ML/MIN Rate Random Glucose 266 MG/DL Calcium Level 8.5 MG/DL Phosphorus Level 3.2 MG/DL Magnesium Level 2.7 MG/DL Total Bilirubin 0.6 MG/DL Aspartate Amino Transf 43 U/L (AST/SGOT) Alanine Aminotransferase 52 U/L (ALT/SGPT) Alkaline Phosphatase 82 U/L Total Protein 7.1 GM/DL Albumin 2.9 GM/DL Imaging Last Impressions Chest X-Ray 03/30/16 0600 Signed Impressions: Service Date/Time: Wednesday, March 30, 2016 03:49 - CONCLUSION: No significant change has occurred. Henrry Andrea MD Chest CT 03/28/16 0836 Signed Impressions: Service Date/Time: Monday, March 28, 2016 09:57 - CONCLUSION: Development areas of air bronchograms and consolidation more prominent in the right and left posterior basilar segments of the lower lobes. ET tube above the chanelle. Bernard Hartman MD CT Angiography 03/24/16 1121 Signed Impressions: Service Date/Time: Thursday, March 24, 2016 12:47 - CONCLUSION: 1. There is respiratory motion artifact but no PE is identified through most of the segmental level pulmonary arteries. 2. Mildly enlarged main pulmonary artery may indicate pulmonary arterial hypertension. 3. 11 mm left lower lobe noncalcified pulmonary nodule. Suggest correlation with any prior imaging studies that could confirm longer-term stability. If none are available consider short-term followup noncontrast chest CT in approximately 3 months. Ubaldo Rodas MD Objective Remarks GENERAL: Obese, heavily sedated on vent. On holding sedation he does wake up and follow commands SKIN: Evidence of seborrheic dermatitis of the face HEAD: Atraumatic. Normocephalic. EYES: Pupils equal round and reactive. ENT: Nose without bleeding, orotracheally intubated NECK: Very Large neck. Trachea midline. LIJ central line in place CARDIOVASCULAR: Regular rate and rhythm without murmurs, gallops, or rubs. RESPIRATORY: Breath sounds equal bilaterally. Mild rhonchi. on ACV 14 PEEP 12 tidal volume 650 FiO2 down to 50% today GASTROINTESTINAL: Abdomen soft, obese, nontender. Severe central obesity MUSCULOSKELETAL: Extremities without clubbing, cyanosis, or edema. NEUROLOGICAL: Intubated heavily sedated with propofol and fentanyl for ventilator synchrony. On lightening sedation patient wakes up follows commands Date of Insertion: Mar 26, 2016 Side: Left Location: Internal, Jugular A/P Assessment and Plan ASSESSMENT: Acute hypoxemic and hypercarbic respiratory failure Obstructive sleep apnea/obesity hypoventilation syndrome Staph aureus pneumonia Severe sepsis Severe morbid obesity Fluid overload/pulmonary edema Incidental Pulmonary nodule DM type 2 Seborrheic Dermatitis PLAN: NEURO: -On propofol and fentanyl for sedation. Daily sedation vacation and monitor neuro status. RESP: -Emergently intubated and placed on mechanical ventilation 03/26/16 -Continue with vent support and keep sat >92%. On ACV with RR 14, TV 65-, PEEP: 12, FIO2 70%. Decrease FIO2 as luna -DuoNeb q6 and PRN -Not a candidate for CPAP trials yet -Solu-Medrol 40 mg IV q12 -Empiric Azactam, Flagyl and vancomycin -Unable to do Prone therapy, patient too obese, abdominal circumference cut off is 60, patient is 74 inches -CT chest to evaluate infiltrate-bibasilar pneumonia CV: -Monitor HR and BP keep MAP>65mmHg -2-D echo Nl EF, normal BNP GI: -Tube feeds with Glucerna 1.5@45ml/hr, IV Protonix -Colace, senna for bowel regimen : -Monitor renal function, I/O's, electrolytes replacement per protocol. -On Lasix 40mg BID, KCL 40meq daily ID: -Continue with abx ( Aztreonam. Vanco) pancultured 03/30 ( Blood, aputum, urine) follow up on cxs. ID eval. -03/27 Sputum culture with staph aureus -03/26 03/07 bottles coag negative staph probable contamination HEME: -Monitor CBC, CMP, coags ENDO: -Increase SSI to medium scale PROPH: -Bilateral lower extremity SCDs. IV Protonix 40 mg daily. Lovenox 40 mg sq BID LINES: -LIJ central line and L radial art line in place CC time 40 min excluding procedures Rob Malloy MD Mar 31, 2016 09:25
[2016-03-31] MEDS ORDERED: BUMETANIDE INJ 1 MG/4 ML VIAL IV PUSH ONE (09:30)
--- NOTE | 2016-03-31 10:57 | RADRPT ---
EXAM DATE/TIME: 03/31/2016 09:58 [facility] COMPARISON: No previous studies available for comparison. INDICATIONS : rule out ileus MEDICAL HISTORY : Diabetes mellitus type II. SURGICAL HISTORY : None. ENCOUNTER: Subsequent ACUITY: 1 week PAIN SCORE: Non-responsive. LOCATION: Bilateral Abdomen FINDINGS: Supine view of the abdomen was performed. The abdominal bowel gas pattern is within normal limits. N o definite abnormal dilatation of large or small bowel is seen. There is an NG tube in the stomach. T he bony structures are grossly intact. CONCLUSION: Benign abdomen. Rodrigo Martinez MD on March 31, 2016 at 10:54 Board Certified Radiologist. This report was verified electronically.
[2016-03-31] MEDS ORDERED: GLUCAGON 1 MG/ML VIAL OTHER PRN (11:15)
[2016-03-31] MEDS ORDERED: DEXTROSE 50% IN WATER 50 ML VIAL(D50) IV PUSH PRN (11:15)
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
[2016-03-31] MEDS: LINEZOLID 600 MG PREMIX 300 ML IV SCH (15:08)
[2016-03-31] MEDS: LEVOFLOXACIN 750 MG PREMIX INJ 150 ML IV SCH (15:08)
[2016-03-31] MEDS: FLUCONAZOLE 400 MG PREMIX BAG 200 ML IV SCH (15:09)
[2016-03-31] MEDS ORDERED: PHARMACY ORDERED LAB XX ONE (15:45)
[2016-03-31] MEDS: PANTOPRAZOLE SODIUM 40 MG VIAL IV PUSH SCH (17:38)
[2016-04-01] VITALS (18 sets, daily range): BP systolic 74–126; BP diastolic 57–71; PULSE 58–82; RESP 14–24; TEMP 98.9–100.1; O2SAT 88–95
[2016-04-01] MEDS: metroNIDAZOLE 500 MG INJ 100 ML IV SCH ×3 (00:10→16:08)
[2016-04-01] MEDS: PROPOFOL 1000 MG/100 ML IV SCH ×10 (00:11→23:21)
[2016-04-01] MEDS: INSULIN NovoLIN REGULAR SUPPLEMENTAL SCALE SQ SCH ×4 (00:18→17:39)
[2016-04-01] MEDS: fentaNYL 2,500 MCG/NS 250 ML IV SCH ×3 (02:43→21:15)
[2016-04-01] MEDS: LINEZOLID 600 MG PREMIX 300 ML IV SCH ×2 (02:43→14:41)
[2016-04-01] MEDS: RESP: ALBUTEROL 2.5 MG/IPRATROPIUM 0.5 MG NEB (SCH) NEB ×3 (03:36→19:55)
[2016-04-01 04:08] LABS: AUTOMATED NEUTROPHIL # 19.6 TH/MM3 (1.8-7.7); BASOPHIL # 0.1 TH/MM3 (0-0.2); BASOPHIL % 0.2 % (0.0-2.0); HEMATOCRIT 43.2 % (39.0-51.0); HEMO FLAGS DIFF FINAL; LYMPH % 2.7 % (9.0-44.0); LYMPHOCYTE # 0.6 TH/MM3 (1.0-4.8); MEAN CELL VOLUME 85.1 FL (80.0-100.0); MEAN CORPUSCULAR HEMOGLOBIN 27.1 PG (27.0-34.0); MEAN CORPUSCULAR HGB CONC 31.9 % (32.0-36.0); MONO % 2.9 % (0.0-8.0); NEUT % 94.2 % (16.0-70.0); PLATELET COUNT 263 TH/MM3 (150-450); RED BLOOD COUNT 5.08 MIL/MM3 (4.50-5.90); RED CELL DISTRIBUTION WIDTH 14.9 % (11.6-17.2); WHITE BLOOD COUNT 20.8 TH/MM3 (4.0-11.0)
[2016-04-01 04:39] LABS: ALKALINE PHOSPHATASE 84 U/L (45-117); ALT (GPT) 48 U/L (12-78); ANION GAP 5 MEQ/L (5-15); AST (GOT) 23 U/L (15-37); BLOOD UREA NITROGEN 31 MG/DL (7-18); CHLORIDE 99 MEQ/L (98-107); GLOMERULAR FILTRATION RATE 90 ML/MIN (>89); MAGNESIUM 2.6 MG/DL (1.5-2.5); POTASSIUM 4.4 MEQ/L (3.5-5.1); SODIUM (NA) 136 MEQ/L (136-145); TOTAL BILIRUBIN ADULT 0.5 MG/DL (0.2-1.0)
--- NOTE | 2016-04-01 04:45 | RADRPT ---
EXAM DATE/TIME: 04/01/2016 03:30 [facility] COMPARISON: CHEST SINGLE AP, March 30, 2016, 3:49. INDICATIONS : Shortness of breath, possible pulmonary disease. MEDICAL HISTORY : Diabetes mellitus type II. SURGICAL HISTORY : None. ENCOUNTER: Subsequent ACUITY: 2 weeks PAIN SCORE: Non-responsive. LOCATION: Bilateral chest FINDINGS: Endotracheal tube tip at the clavicles. NG tube courses beneath the diaphragm. There is cardiomegaly and right basilar atelectasis. Left jugular line tip overlies the SVC. Left lower lobe airspace disea se. CONCLUSION: No significant change has occurred. Henrry Andrea MD on April 01, 2016 at 4:43 Board Certified Radiologist. This report was verified electronically.
[2016-04-01] MEDS: ENOXAPARIN SODIUM 40 MG/0.4 ML SYRINGE SQ SCH ×2 (05:08→17:38)
[2016-04-01] MEDS: SENNOSIDES SYRUP 8.8 MG/5 ML CUP PO/TUBE SCH ×2 (09:00→20:13)
[2016-04-01] MEDS ORDERED: GLYCERIN ADULT 2 GM SUPP RECTAL PRN (09:00)
[2016-04-01] MEDS: BENEPROTEIN POWDER 1 PACK G-TUBE SCH ×3 (09:00→17:37)
[2016-04-01] MEDS: TIOTROPIUM BROMIDE 18 MCG INH INH SCH (09:00)
--- NOTE | 2016-04-01 09:03 | HHI.CCPN ---
Subjective Remarks/Hospital Course Patient is a 50 years old obese male with past medical history significant for undiagnosed sleep apnea, super morbid obesity, type 2 diabetes was brought to the emergency department on 03/24/16 after feeling light headed and dizzy. On presentation here was found to be hypoxemic and ABG showed severe hypoxemia and hypercarbia. For a recent driving physical he was diagnosed with low oxygen saturations. Patient's oxygen saturation the ED was in the low 80s, which was confirmed on ABG with a oxygen saturation of 78% and PO2 of 46. CTA negative for PE. Patient was initiated on BiPAP therapy with consult to pulmonary Dr. Crane. His oxygenation improved but he continued to be hypercapnic. Today a.m. on nasal cannula his pH was 7.26 and PCO2 was increased at 99, patient was somnolent was placed back on BiPAP and repeat ABG at noon showed pH 7.26 PCO2 98 and pO2 70. This was on 16 BiPAP with FiO2 50%. Critical care was consulted. On my evaluation patient is somnolent but wakes up easily. I reduced the PEEP on BiPAP from 12-7 to facilitate better ventilation. A repeat ANG showed only minimal improvement, so decision made to intubate patient. Glidescope with #4 blade was used. Only propofol was used for induction. Initially I had a Grade 1-2 view, but I was unable to pass tube through the vocal cord to trachea in two attempts. Tube slipped out of Laryngeal opening both times. Dr Garrett intubated patient after NM paralysis with succinylcholine. Post intubation ABG showed improvement in hypercapnia and oxygenation. 03/27/16: Patient remains intubated heavily sedated with propofol and fentanyl. Remained severely hypoxemic on 100% FiO2, PEEP12, chest x-ray shows bibasilar infiltrates. Flagyl added. We'll give 1 dose of vancomycin-Adjust antibiotics according to cultures. Patient super morbid obesity may prevent Prone therapy 03/28: Remains hypoxic but ABG shows marginal improvement in oxygenation. WBC increasing 20.1 today. Start vancomycin scheduled. 03/29: Oxygenation is slightly improved. FiO2 reduced to 50% today. Chest x- ray remains unchanged. On sedation hold patient does wake up and follow commands. WBC count remains at 20 03/30 No acute events overnight. Sedated with Diprivan and Fentanyl. Had T: 100.1 at 4 am. WBC trending down 15.9 today from 20. 03/31 Patient remains sedated with Diprivan, Fentanyl and intubated. Tmax 100.1. Patient required increase O2 overnight now on ACV with PEEP: 12 and FIO2 70%. Subjective 04/01: Tmax 99.7.. No bowel movement since admission. Patient has bowel sounds. Arousable on the ventilator. We'll attempt prone the patient paralyzed to increase oxygenation status. Objective Vital Signs Date Time Temp Pulse Resp B/P Pulse Ox O2 Delivery O2 Flow Rate FiO2 04/01/16 07:37 92 90 04/01/16 06:00 61 04/01/16 04:00 99.7 14 118/61 03/29/16 07:43 Ventilator Intake and Output 03/31/16 03/31/16 04/01/16 08:00 16:00 00:00 Intake Total 1546 ml 1097 ml 1624 ml Output Total 600 ml 2800 ml 1800 ml Balance 946 ml -1703 ml -176 ml Result Diagram: 04/01/16 0345 04/01/16 0345 Other Results Microbiology Date/Time Procedure Status Source Growth 03/30/16 19:25 Aerobic Blood Culture - Preliminary Resulted Blood Peripheral NO GROWTH IN 1 DAY 03/30/16 19:25 Anaerobic Blood Culture - Preliminary Resulted Blood Peripheral NO GROWTH IN 1 DAY 03/30/16 11:00 Urine Culture - Preliminary Resulted Urine Catheterized Urine NO GROWTH IN 24 HOURS. 03/30/16 11:00 Gram Stain - Final Resulted Sputum Endotracheal 03/30/16 11:00 Sputum Culture - Preliminary Resulted Staphylococcus Aureus Imaging Last Impressions Chest X-Ray 04/01/16 0000 Signed Impressions: Service Date/Time: Friday, April 01, 2016 03:30 - CONCLUSION: No significant change has occurred. Henrry Andrea MD Abdomen X-Ray 03/31/16 0000 Signed Impressions: Service Date/Time: Thursday, March 31, 2016 09:58 - CONCLUSION: Benign abdomen. Rodrigo Martinez MD Chest CT 03/28/16 0836 Signed Impressions: Service Date/Time: Monday, March 28, 2016 09:57 - CONCLUSION: Development areas of air bronchograms and consolidation more prominent in the right and left posterior basilar segments of the lower lobes. ET tube above the chanelle. Bernard Hartman MD CT Angiography 03/24/16 1121 Signed Impressions: Service Date/Time: Thursday, March 24, 2016 12:47 - CONCLUSION: 1. There is respiratory motion artifact but no PE is identified through most of the segmental level pulmonary arteries. 2. Mildly enlarged main pulmonary artery may indicate pulmonary arterial hypertension. 3. 11 mm left lower lobe noncalcified pulmonary nodule. Suggest correlation with any prior imaging studies that could confirm longer-term stability. If none are available consider short-term followup noncontrast chest CT in approximately 3 months. Ubaldo Rodas MD Objective Remarks GENERAL: 50-year-old male, critically ill currently resting in bed in no acute distress SKIN: Evidence of seborrheic dermatitis of the face HEAD: Atraumatic. Normocephalic. EYES: Pupils equal round and reactive about 3 Richardson's bilaterally. ENT: NG tube in place. We'll check intubated NECK: Very Large neck. Trachea midline. LIJ central line in place CARDIOVASCULAR: Cardiac, RR. S1, S2. No S4. Without murmur RESPIRATORY: Breath sounds equal bilaterally. Mild rhonchorous breath sounds GASTROINTESTINAL: Abdomen soft, obese, nontender. Severe central obesity MUSCULOSKELETAL: Extremities with trace nonpitting bilateral lower extremity edema. NEUROLOGICAL: Intubated heavily sedated with propofol and fentanyl for ventilator synchrony. On lightening sedation patient wakes up follows commands by moving all 4 extremities. Urinary Catheter: Yes Assessment to: Continue Becker insert reason: Prolonged Immobilization Vascular Central Line Catheter: Yes Assessment to: Continue Date of Insertion: Mar 26, 2016 Line: Central Venous Catheter Side: Left Location: Internal, Jugular A/P Assessment and Plan NEURO/Psych: -On propofol and fentanyl for sedation/analgesia while intubated --Goal of RASS -2. Daily sedation vacation on hold secondary to paralytic/oxygenation status. Acetaminophen for fever Paralyzed with Nimbex fintn-[id number] 2 out of 4. BIS 40-60 RESP: Acute respiratory failure Obstructive sleep apnea Obesity hypoventilation syndrome Staph aureus pneumonia Left lower lobe pulmonary nodule of 11 millimeters - follow up CT chest 3 months without contrast recommended Pulmonary edema PRVC 14/700/1.3/14/100 Ventilator bundle Bronchodilator therapy every 6 hours and as needed -Emergently intubated and placed on mechanical ventilation 03/26/16 Will initiate Flolan today for oxygenation. -Solu-Medrol 40 mg IV q12 CTA chest revealed no PE. Possible pulmonary arterial hypertension. 11 mm pulmonary nodule. Bilateral lower lobe air bronchograms Paralyzed with Nimbex drip today and prone patient. CV: -Monitor HR and BP keep MAP>65mmHg -2-D echo 03/26 EF 60%. No regional wall motion abnormality. Mild . Mild MR/ TR GI: Constipation Hypoalbuminemia -Tube feeds with Glucerna 1.5@45ml/hr, - IV Protonix -Colace, senna for bowel regimen Added lactulose 4 times a day, MiraLAX twice a day, mineral 1 and questions posture 1. No bowel movement since admission. Ulcer 1 as well /FEN: Hyper-magnesium -Monitor renal function, I/O's, electrolytes replacement per protocol. -On Lasix 40mg BID, KCL 40meq daily ID/DERM: Staph aureus pneumonia Infectious disease consultation/Dr. Painter. Appreciate recommendations. -Continue with abx (Zyvox, Levaquin day #2 and Flagyl.) Continue Diflucan day # 2. Discontinued vancomycin and aztreonam 03/31 -03/30 sputum culture with staph aureus - 03/30 - urine - no growth - 03/30 - blood cultures 2 - negative -03/27 Sputum culture with staph aureus -03/26 03/07 bottles coag negative staph probable contamination HEME: Leukocytosis -Monitor CBC, CMP, coags ENDO: Diabetes mellitus Hyperglycemia critical illness Increase Levemir 15 units twice a day. -Increase SSI to medium scale On metformin 500 mg by mouth twice a day at home. This is been held MSK: Morbid obesity Weight loss encouraged. PT evaluate and treat PROPH: -Bilateral lower extremity SCDs. IV Protonix 40 mg daily. Lovenox 40 mg sq BID LINES: -LIJ central line and L radial art line in place 03/26 Critical Care: The total critical care time was 35 minutes. Time to perform other separately billable procedures was not included in the critical care time. Codey Florentino MD Apr 01, 2016 09:03
[2016-04-01] MEDS: POTASSIUM CL 40 MEQ/30 ML LIQ UDC PO SCH (09:18)
[2016-04-01] MEDS: DOCUSATE SODIUM 100 MG/10 ML UDC PO SCH ×2 (09:18→20:13)
[2016-04-01] MEDS: methylPREDNISolone SOD SUCC 40 MG/1 ML VIAL IV PUSH SCH ×2 (09:19→20:13)
[2016-04-01] MEDS: BETAMETHASONE/CLOTRIMAZOLE CREAM 15 GM TOPICAL SCH ×2 (09:21→20:15)
[2016-04-01] MEDS: FUROSEMIDE 20 MG/2 ML VIAL IV PUSH SCH ×2 (09:21→17:37)
[2016-04-01] MEDS ORDERED: GLYCERIN ADULT 2 GM SUPP RECTAL ONE (09:30)
[2016-04-01] MEDS: LACTULOSE SYRUP 20 GM/30 ML CUP PO SCH ×4 (09:51→20:13)
--- NOTE | 2016-04-01 09:53 | HHI.IDPN ---
Subjective Subjective Remarks Notes reviewed D/W RN Temps ok Still requiring a lot of O2 To be placed on rotaprone bed and paralytics BP ok Antibiotics Levaquin Zyvox Lines TLC A line Past Medical History Morbid obesity Suspected to have obstructive sleep apnea Past Surgical History Right carpal tunnel surgery Allergies: Coded Allergies: Penicillin (Verified Allergy, Severe, Swelling, 03/24/16) Tetanus Toxoid (Verified Allergy, Unknown, Swelling, 03/24/16) Objective . Vital Signs Date Time Temp Pulse Resp B/P Pulse Ox O2 Delivery O2 Flow Rate FiO2 04/01/16 07:37 92 90 04/01/16 06:00 61 04/01/16 04:00 73 04/01/16 04:00 99.7 73 14 118/61 91 04/01/16 04:00 90 04/01/16 03:59 91 90 04/01/16 02:00 62 04/01/16 00:38 90 90 04/01/16 00:00 90 04/01/16 00:00 58 04/01/16 00:00 99.3 58 14 116/64 88 03/31/16 22:00 63 03/31/16 20:00 98.7 59 14 103/56 92 Arterial Line 03/31/16 20:00 90 03/31/16 20:00 59 03/31/16 19:45 93 90 03/31/16 18:00 68 03/31/16 16:00 100 03/31/16 16:00 69 03/31/16 16:00 98.9 69 14 114/59 92 81/69 03/31/16 15:29 90 100 03/31/16 14:00 59 03/31/16 12:00 98.4 61 14 102/57 90 116/72 03/31/16 12:00 61 03/31/16 12:00 100 03/31/16 11:30 100 03/31/16 11:13 90 70 03/31/16 11:10 80 03/31/16 10:00 67 03/31/16 03/31/16 04/01/16 15:00 23:00 07:00 Intake Total 1097 ml 1624 ml 1291 ml Output Total 2800 ml 1800 ml 625 ml Balance -1703 ml -176 ml 666 ml IV Total 638 ml 1149 ml 862 ml Tube Feeding 259 ml 375 ml 329 ml Other 200 ml 100 ml 100 ml Output Urine Total 2800 ml 1800 ml 625 ml # Bowel Movements 0 . Laboratory Tests Test 03/31/16 04/01/16 03:20 03:45 White Blood Count 20.8 TH/MM3 20.8 TH/MM3 Red Blood Count 5.12 MIL/MM3 5.08 MIL/MM3 Hemoglobin 14.4 GM/DL 13.8 GM/DL Hematocrit 43.8 % 43.2 % Mean Corpuscular Volume 85.5 FL 85.1 FL Mean Corpuscular Hemoglobin 28.1 PG 27.1 PG Mean Corpuscular Hemoglobin 32.8 % 31.9 % Concent Red Cell Distribution Width 15.3 % 14.9 % Platelet Count 241 TH/MM3 263 TH/MM3 Mean Platelet Volume 9.7 FL 9.4 FL Neutrophils (%) (Auto) 93.6 % 94.2 % Lymphocytes (%) (Auto) 2.7 % 2.7 % Monocytes (%) (Auto) 3.4 % 2.9 % Eosinophils (%) (Auto) 0.1 % 0.0 % Basophils (%) (Auto) 0.2 % 0.2 % Neutrophils # (Auto) 19.4 TH/MM3 19.6 TH/MM3 Lymphocytes # (Auto) 0.6 TH/MM3 0.6 TH/MM3 Monocytes # (Auto) 0.7 TH/MM3 0.6 TH/MM3 Eosinophils # (Auto) 0.0 TH/MM3 0.0 TH/MM3 Basophils # (Auto) 0.0 TH/MM3 0.1 TH/MM3 CBC Comment DIFF FINAL DIFF FINAL Differential Comment Laboratory Tests Test 03/30/16 03/31/16 04/01/16 18:30 03:20 03:45 Potassium Level 3.6 MEQ/L 4.1 MEQ/L 4.4 MEQ/L Sodium Level 137 MEQ/L 136 MEQ/L Chloride Level 98 MEQ/L 99 MEQ/L Carbon Dioxide Level 32.4 MEQ/L 32.0 MEQ/L Anion Gap 7 MEQ/L 5 MEQ/L Blood Urea Nitrogen 30 MG/DL 31 MG/DL Creatinine 0.85 MG/DL 0.89 MG/DL Estimat Glomerular Filtration 95 ML/MIN 90 ML/MIN Rate Random Glucose 266 MG/DL 379 MG/DL Calcium Level 8.5 MG/DL 8.7 MG/DL Phosphorus Level 3.2 MG/DL 2.3 MG/DL Magnesium Level 2.7 MG/DL 2.6 MG/DL Total Bilirubin 0.6 MG/DL 0.5 MG/DL Aspartate Amino Transf 43 U/L 23 U/L (AST/SGOT) Alanine Aminotransferase 52 U/L 48 U/L (ALT/SGPT) Alkaline Phosphatase 82 U/L 84 U/L Total Protein 7.1 GM/DL 7.1 GM/DL Albumin 2.9 GM/DL 2.8 GM/DL Microbiology Date/Time Procedure Status Source Growth 03/30/16 11:00 Gram Stain - Final Resulted Sputum Endotracheal 03/30/16 11:00 Sputum Culture - Preliminary Resulted Staphylococcus Aureus 03/30/16 11:00 Urine Culture - Preliminary Resulted Urine Catheterized Urine NO GROWTH IN 24 HOURS. 03/30/16 19:20 Aerobic Blood Culture - Preliminary Resulted Blood Peripheral NO GROWTH IN 1 DAY 03/30/16 19:20 Anaerobic Blood Culture - Preliminary Resulted Blood Peripheral NO GROWTH IN 1 DAY 03/30/16 19:25 Aerobic Blood Culture - Preliminary Resulted Blood Peripheral NO GROWTH IN 1 DAY 03/30/16 19:25 Anaerobic Blood Culture - Preliminary Resulted Blood Peripheral NO GROWTH IN 1 DAY Imaging Chest X-Ray 04/01/16 0000 Signed Impressions: Service Date/Time: Friday, April 01, 2016 03:30 - CONCLUSION: No significant change has occurred. Henrry Andrea MD Abdomen X-Ray 03/31/16 0000 Signed Impressions: Service Date/Time: Thursday, March 31, 2016 09:58 - CONCLUSION: Benign abdomen. Rodrigo Martinez MD Chest X-Ray 03/30/16 0600 Signed Impressions: Service Date/Time: Wednesday, March 30, 2016 03:49 - CONCLUSION: No significant change has occurred. Henrry Andrea MD Physical Exam GENERAL: Morbidly obese, sedated on the vent, in no apparent distress. SKIN: Warm and moist, no generalized rash HEENT: [place] conjunctivae. No scleral icterus. No injection or drainage. Nose without purulent drainage. Endotracheal tube is in the mouth. NECK: Trachea midline. Neck is short and obese. Supple, no rigidity. Line in the left side of the neck with no evidence of infection. CARDIOVASCULAR: Regular rate and rhythm without murmurs, gallops, or rubs. RESPIRATORY: Coarse breath sounds bilaterally. Decreased breath sounds at the bases. GASTROINTESTINAL: Abdomen obese, soft, bowel sounds are present and normoactive , no reaction to palpation. No guarding. MUSCULOSKELETAL: Extremities without clubbing, cyanosis, or edema. No joint tenderness, effusion, or edema noted. NEUROLOGICAL: Sedated on the vent. PSYCH: Unable to assess LINE: TLC L neck, A line with no evidence of infection : Becker in place, with no evidence of infection Assessment & Plan Remarks IMPRESSION Worsening leukocytosis, ?new infection - has been on adequate Abx for pathogens isolated - ?new HCAP, has increased O2 requirement though not much change on CXR ( though poor CXR due to his size) - UA ok - line placed 03/26 - no diarrhea - ?fungal, has been on steroids Pneumonia JACOB Respiratory failure, still with very high O requirement Morbid obesity Allergy to PCN, swelling RECOMMENDATION Continue Zyvox, Levaquin and Diflucan Continue Flagyl for now Follow new C/S Follow CBC Monitor progress To be placed on rotaprone bed and paralytics to try and increased oxygenation D/W Elisha Archer MD Apr 01, 2016 09:53
[2016-04-01] MEDS: INSULIN DETEMIR 100 UNITS/ML VIAL SQ SCH ×2 (09:58→20:13)
[2016-04-01] MEDS: POLYETHYLENE GLYCOL 17 GM PKG PO SCH ×2 (09:59→20:13)
[2016-04-01] MEDS ORDERED: MINERAL OIL LIQUID 30 ML CUP PO ONE (10:00)
[2016-04-01] MEDS ORDERED: METHYLNALTREXONE BROMIDE 12 MG/0.6 ML VIAL SQ ONE (10:30)
[2016-04-01] MEDS: EPOPROSTENOL NEB SOLUTION 50 NG/KG/MIN 100 ML NEB SCH ×6 (11:53→20:12)
[2016-04-01] MEDS: MIDAZOLAM 100 MG/ML INJ 100 ML IV SCH ×2 (12:10→21:15)
[2016-04-01] MEDS: LEVOFLOXACIN 750 MG PREMIX INJ 150 ML IV SCH ×2 (14:28→14:40)
[2016-04-01] MEDS: METOCLOPRAMIDE HCL 10 MG/2 ML VIAL IV PUSH SCH ×2 (14:28→21:16)
[2016-04-01] MEDS: CISATRACURIUM INJ 100 MG in SODIUM CHLOR 0.9% 250 ML INJ 240 ML IV SCH ×2 (14:38→20:12)
[2016-04-01] MEDS: FLUCONAZOLE 400 MG PREMIX BAG 200 ML IV SCH (16:07)
[2016-04-01] MEDS: PANTOPRAZOLE SODIUM 40 MG VIAL IV PUSH SCH (17:38)
[2016-04-01] MEDS: CHLORHEXIDINE 0.12% (ORAL KIT) 15 ML CUP MT SCH (20:14)
[2016-04-01] MEDS ORDERED: NOREPINEPHRINE 4 MG/D5W 250 ML IV SCH (20:30)
[2016-04-02] VITALS (18 sets, daily range): BP systolic 92–121; BP diastolic 54–77; PULSE 59–105; RESP 15; TEMP 97.7–100.9; O2SAT 84–95
[2016-04-02] MEDS: metroNIDAZOLE 500 MG INJ 100 ML IV SCH ×4 (00:43→23:58)
[2016-04-02] MEDS: INSULIN NovoLIN REGULAR SUPPLEMENTAL SCALE SQ SCH ×4 (00:43→17:51)
[2016-04-02] MEDS: PROPOFOL 1000 MG/100 ML IV SCH ×10 (01:39→23:58)
[2016-04-02] MEDS: LINEZOLID 600 MG PREMIX 300 ML IV SCH ×2 (03:34→14:17)
[2016-04-02] MEDS: CISATRACURIUM INJ 100 MG in SODIUM CHLOR 0.9% 250 ML INJ 240 ML IV SCH ×2 (03:34→23:58)
[2016-04-02] MEDS: RESP: ALBUTEROL 2.5 MG/IPRATROPIUM 0.5 MG NEB (SCH) NEB ×4 (03:42→19:29)
[2016-04-02 04:54] LABS: AUTOMATED NEUTROPHIL # 21.4 TH/MM3 (1.8-7.7); BASOPHIL # 0.1 TH/MM3 (0-0.2); BASOPHIL % 0.3 % (0.0-2.0); HEMATOCRIT 44.5 % (39.0-51.0); HEMO FLAGS DIFF FINAL; LYMPH % 2.5 % (9.0-44.0); LYMPHOCYTE # 0.6 TH/MM3 (1.0-4.8); MEAN CELL VOLUME 85.5 FL (80.0-100.0); MEAN CORPUSCULAR HEMOGLOBIN 27.8 PG (27.0-34.0); MEAN CORPUSCULAR HGB CONC 32.5 % (32.0-36.0); MONO % 5.6 % (0.0-8.0); NEUT % 91.6 % (16.0-70.0); PLATELET COUNT 284 TH/MM3 (150-450); RED BLOOD COUNT 5.21 MIL/MM3 (4.50-5.90); RED CELL DISTRIBUTION WIDTH 14.8 % (11.6-17.2); WHITE BLOOD COUNT 23.4 TH/MM3 (4.0-11.0)
[2016-04-02 05:42] LABS: AST (GOT) 22 U/L (15-37); BLOOD UREA NITROGEN 33 MG/DL (7-18); CHLORIDE 100 MEQ/L (98-107); GLOMERULAR FILTRATION RATE 78 ML/MIN (>89); POTASSIUM 4.7 MEQ/L (3.5-5.1); SODIUM (NA) 137 MEQ/L (136-145)
[2016-04-02 05:46] LABS: ALKALINE PHOSPHATASE 76 U/L (45-117); ALT (GPT) 51 U/L (12-78); ANION GAP 9 MEQ/L (5-15); BICARBONATE 28.3 MEQ/L (21.0-32.0); MAGNESIUM 2.8 MG/DL (1.5-2.5); TOTAL BILIRUBIN ADULT 0.5 MG/DL (0.2-1.0)
[2016-04-02] MEDS: MIDAZOLAM 100 MG/ML INJ 100 ML IV SCH ×2 (05:50→14:17)
[2016-04-02] MEDS: ENOXAPARIN SODIUM 40 MG/0.4 ML SYRINGE SQ SCH ×2 (05:51→17:51)
[2016-04-02] MEDS: METOCLOPRAMIDE HCL 10 MG/2 ML VIAL IV PUSH SCH ×3 (05:51→23:58)
[2016-04-02] MEDS: ACETAMINOPHEN 650 MG/20.3 ML UDC PO PRN (05:51)
--- NOTE | 2016-04-02 07:23 | HHI.CCPN ---
Subjective Remarks/Hospital Course Patient is a 50 years old obese male with past medical history significant for undiagnosed sleep apnea, super morbid obesity, type 2 diabetes was brought to the emergency department on 03/24/16 after feeling light headed and dizzy. On presentation here was found to be hypoxemic and ABG showed severe hypoxemia and hypercarbia. For a recent driving physical he was diagnosed with low oxygen saturations. Patient's oxygen saturation the ED was in the low 80s, which was confirmed on ABG with a oxygen saturation of 78% and PO2 of 46. CTA negative for PE. Patient was initiated on BiPAP therapy with consult to pulmonary Dr. Crane. His oxygenation improved but he continued to be hypercapnic. Today a.m. on nasal cannula his pH was 7.26 and PCO2 was increased at 99, patient was somnolent was placed back on BiPAP and repeat ABG at noon showed pH 7.26 PCO2 98 and pO2 70. This was on 16 BiPAP with FiO2 50%. Critical care was consulted. On my evaluation patient is somnolent but wakes up easily. I reduced the PEEP on BiPAP from 12-7 to facilitate better ventilation. A repeat ANG showed only minimal improvement, so decision made to intubate patient. Glidescope with #4 blade was used. Only propofol was used for induction. Initially I had a Grade 1-2 view, but I was unable to pass tube through the vocal cord to trachea in two attempts. Tube slipped out of Laryngeal opening both times. Dr Garrett intubated patient after NM paralysis with succinylcholine. Post intubation ABG showed improvement in hypercapnia and oxygenation. 03/27/16: Patient remains intubated heavily sedated with propofol and fentanyl. Remained severely hypoxemic on 100% FiO2, PEEP12, chest x-ray shows bibasilar infiltrates. Flagyl added. We'll give 1 dose of vancomycin-Adjust antibiotics according to cultures. Patient super morbid obesity may prevent Prone therapy 03/28: Remains hypoxic but ABG shows marginal improvement in oxygenation. WBC increasing 20.1 today. Start vancomycin scheduled. 03/29: Oxygenation is slightly improved. FiO2 reduced to 50% today. Chest x- ray remains unchanged. On sedation hold patient does wake up and follow commands. WBC count remains at 20 03/30 No acute events overnight. Sedated with Diprivan and Fentanyl. Had T: 100.1 at 4 am. WBC trending down 15.9 today from 20. 03/31 Patient remains sedated with Diprivan, Fentanyl and intubated. Tmax 100.1. Patient required increase O2 overnight now on ACV with PEEP: 12 and FIO2 70%. 04/01: Tmax 99.7. No bowel movement since admission. Patient has bowel sounds. Arousable on the ventilator. We'll attempt prone the patient paralyzed to increase oxygenation status. Subjective 04/02: MAXIMUM TEMPERATURE 100.9. Currently 97.7. 5 10 cc stools overnight. Placed on Roto prone yesterday. Saturations currently 94% on Flolan. Diuresed overnight. Creatinine still within normal limits. Objective Vital Signs Date Time Temp Pulse Resp B/P Pulse Ox O2 Delivery O2 Flow Rate FiO2 04/02/16 06:00 64 04/02/16 04:30 95 100 04/02/16 04:00 100.9 15 112/64 105/62 03/29/16 07:43 Ventilator Intake and Output 04/01/16 04/01/16 04/02/16 08:00 16:00 00:00 Intake Total 1291 ml 1336 ml 1141 ml Output Total 625 ml 2050 ml 3310 ml Balance 666 ml -714 ml -2169 ml Result Diagram: 04/02/16 0430 04/02/16 0430 Other Results Microbiology Date/Time Procedure Status Source Growth 03/30/16 19:25 Aerobic Blood Culture - Preliminary Resulted Blood Peripheral NO GROWTH IN 2 DAYS 03/30/16 19:25 Anaerobic Blood Culture - Preliminary Resulted Blood Peripheral NO GROWTH IN 2 DAYS 03/30/16 11:00 Urine Culture - Final Complete Urine Catheterized Urine NO GROWTH IN 48 HOURS. 03/30/16 11:00 Gram Stain - Final Complete Sputum Endotracheal 03/30/16 11:00 Sputum Culture - Final Complete Staphylococcus Aureus Imaging Last Impressions Chest X-Ray 04/01/16 0000 Signed Impressions: Service Date/Time: Friday, April 01, 2016 03:30 - CONCLUSION: No significant change has occurred. Henrry Andrea MD Abdomen X-Ray 03/31/16 0000 Signed Impressions: Service Date/Time: Thursday, March 31, 2016 09:58 - CONCLUSION: Benign abdomen. Rodrigo Martinez MD Chest CT 03/28/16 0836 Signed Impressions: Service Date/Time: Monday, March 28, 2016 09:57 - CONCLUSION: Development areas of air bronchograms and consolidation more prominent in the right and left posterior basilar segments of the lower lobes. ET tube above the chanelle. Bernard Hartman MD CT Angiography 03/24/16 1121 Signed Impressions: Service Date/Time: Thursday, March 24, 2016 12:47 - CONCLUSION: 1. There is respiratory motion artifact but no PE is identified through most of the segmental level pulmonary arteries. 2. Mildly enlarged main pulmonary artery may indicate pulmonary arterial hypertension. 3. 11 mm left lower lobe noncalcified pulmonary nodule. Suggest correlation with any prior imaging studies that could confirm longer-term stability. If none are available consider short-term followup noncontrast chest CT in approximately 3 months. Ubaldo Rodas MD Objective Remarks GENERAL: 50-year-old male, critically ill currently resting in bed in no acute distress SKIN: Evidence of seborrheic dermatitis of the face HEAD: Atraumatic. Normocephalic. EYES: Pupils equal round and reactive about 3 Richardson's bilaterally. ENT: NG tube in place. We'll check intubated NECK: Very Large neck. Trachea midline. LIJ central line in place CARDIOVASCULAR: Cardiac, RR. S1, S2. No S4. Without murmur RESPIRATORY: Breath sounds equal bilaterally. Mild rhonchorous breath sounds GASTROINTESTINAL: Abdomen soft, obese, nontender. Severe central obesity MUSCULOSKELETAL: Extremities with trace nonpitting bilateral lower extremity edema. NEUROLOGICAL: Intubated and paralyzed on the ventilator. Date of Insertion: Mar 26, 2016 Line: Central Venous Catheter Side: Left Location: Internal, Jugular A/P Assessment and Plan NEURO/Psych: -On propofol and 50 mcg/kg per minute, Versed drip at 10 mg an hour and fentanyl drip at 250 g an hour for sedation/analgesia while intubated Nimbex drip currently at 1.5 mcg/kg per minute to maintain a [id number] 2/ 4 Daily sedation vacation on hold secondary to paralytic/oxygenation status. Acetaminophen for fever Paralyzed with Nimbex [id number] 2 out of 4. BIS 40-60 RESP: Acute respiratory failure Obstructive sleep apnea Obesity hypoventilation syndrome Staph aureus pneumonia Left lower lobe pulmonary nodule of 11 millimeters - follow up CT chest 3 months without contrast recommended Pulmonary edema PC/AC /1.// Ventilator bundle Bronchodilator therapy every 6 hours and as needed -Emergently intubated and placed on mechanical ventilation 03/26/16 Continue Flolan today at 50 ng/kg per minute for oxygenation. -Solu-Medrol 40 mg IV q12 CTA chest revealed no PE. Possible pulmonary arterial hypertension. 11 mm pulmonary nodule. Bilateral lower lobe air bronchograms Paralyzed with Nimbex drip 04/01 and prone patient. CV: -Monitor HR and BP keep MAP>65mmHg -2-D echo 03/26 EF 60%. No regional wall motion abnormality. Mild . Mild MR/ TR Currently not requiring any anti-hypertensives and or vasopressors GI: Constipation Hypoalbuminemia -Tube feeds with Glucerna 1.5@45ml/hr, - IV Protonix 40 mg IV daily -Colace, senna for bowel regimen MiraLAX twice a day to be continued. Discontinue lactulose with positive BMs. /FEN: Hyper-magnesium -Monitor renal function, I/O's, electrolytes replacement per protocol. -On Lasix 20mg BID ID/DERM: Staph aureus pneumonia Infectious disease consultation/Dr. Painter. Appreciate recommendations. -Continue with abx (Zyvox, Levaquin day #3 and Flagyl since 03/26.) Continue Diflucan 40 mg IV day #3. Discontinued vancomycin and aztreonam 03/31 -03/30 sputum culture with staph aureus - 03/30 - urine - no growth - 03/30 - blood cultures 2 - negative -03/27 Sputum culture with staph aureus -03/26 03/07 bottles coag negative staph probable contamination HEME: Leukocytosis -Monitor CBC, CMP, coags ENDO: Diabetes mellitus Hyperglycemia critical illness Increase Levemir 25 units twice a day. -Increase SSI to medium scale and 31 units provided past 24 hours On metformin 500 mg by mouth twice a day at home. This has been held MSK: Morbid obesity Weight loss encouraged. PT evaluate and treat PROPH: -Bilateral lower extremity SCDs. IV Protonix 40 mg daily. Lovenox 40 mg sq BID LINES: -LIJ central line and L radial art line in place 03/26. Critical Care: The total critical care time was 35 minutes. Time to perform other separately billable procedures was not included in the critical care time. Codey Florentino MD Apr 02, 2016 07:23
[2016-04-02] MEDS: CHLORHEXIDINE 0.12% (ORAL KIT) 15 ML CUP MT SCH ×2 (07:50→20:15)
[2016-04-02] MEDS: fentaNYL 2,500 MCG/NS 250 ML IV SCH ×2 (07:51→16:32)
[2016-04-02] MEDS: TIOTROPIUM BROMIDE 18 MCG INH INH SCH (09:00)
[2016-04-02] MEDS: BENEPROTEIN POWDER 1 PACK G-TUBE SCH ×3 (09:00→17:52)
--- NOTE | 2016-04-02 09:26 | PD.PROCEDR ---
Central Line Procedure REASON FOR PROCEDURE Central venous access PROCEDURE PERFORMED Central line placement: Right IJ CVL CONSENT Informed consent for procedure was obtained. The risks and benefits of the procedure were discussed to include but limited to bleeding, clot formation, infection, and even . ANESTHESIA Local injection of 1% Lidocaine DESCRIPTION OF THE PROCEDURE The patient was placed in supine, mild Trendelenburg position. The area was exposed and cleansed with ChloraPrep, times two. Large sterile drape was used to cover the patient, with the site exposed, under sterile conditions including cap, face mask, sterile gown, and sterile gloves. On single attempt, the introducer needle was inserted with negative pressure in syringe and venous flash was obtained. The guide wire was then advanced without any restriction and the needle was removed. The dilator was used without any complications. Using Seldinger technique the triple-lumen catheter was advanced over the guide wire to a depth of 18 centimeters. The guide wire was removed. All ports were aspirated with dark venous blood return and flushed easily with sterile saline. All ports were capped. Antibiotic disc was placed around central line at puncture site. The central line was secured to the skin with two interrupted 2.0 silk sutures. The area was bandaged with sterile see-through central line bandage. RADIOLOGICAL DATA Ultrasound guidance was used to locate right internal jugular vein. Doppler/ color flow was used to confirm venous flow. COMPLICATIONS: No apparent complications ESTIMATED BLOOD LOSS: Less than 1 cc. Codey Florentino MD Apr 02, 2016 09:26
[2016-04-02] MEDS: INSULIN DETEMIR 100 UNITS/ML VIAL SQ SCH ×2 (09:56→20:16)
[2016-04-02] MEDS: EPOPROSTENOL NEB SOLUTION 50 NG/KG/MIN 100 ML NEB SCH ×4 (09:56→17:51)
[2016-04-02] MEDS: DOCUSATE SODIUM 100 MG/10 ML UDC PO SCH ×2 (09:56→20:15)
[2016-04-02] MEDS: SENNOSIDES SYRUP 8.8 MG/5 ML CUP PO/TUBE SCH ×2 (09:56→20:15)
[2016-04-02] MEDS: POLYETHYLENE GLYCOL 17 GM PKG PO SCH ×2 (09:56→20:15)
[2016-04-02] MEDS: FUROSEMIDE 20 MG/2 ML VIAL IV PUSH SCH ×2 (09:57→17:51)
[2016-04-02] MEDS: methylPREDNISolone SOD SUCC 40 MG/1 ML VIAL IV PUSH SCH ×2 (09:57→20:15)
[2016-04-02] MEDS: BETAMETHASONE/CLOTRIMAZOLE CREAM 15 GM TOPICAL SCH ×2 (09:58→20:16)
--- NOTE | 2016-04-02 10:33 | RADRPT ---
EXAM DATE/TIME: 04/02/2016 09:22 [facility] COMPARISON: CHEST SINGLE AP, April 01, 2016, 3:30. INDICATIONS : Central line placement. MEDICAL HISTORY : None. SURGICAL HISTORY : None. ENCOUNTER: Subsequent ACUITY: 1 week PAIN SCORE: Non-responsive. LOCATION: Bilateral chest FINDINGS: Left jugular catheter remains in place. There is placement of a right jugular catheter terminating in superior vena cava with no pneumothorax. ET tube remains above the chanelle a nasogastric tube is in m idline and to the stomach and bibasilar opacities persist with probable effusion on the right CONCLUSION: Place a right jugular catheter terminates superior vena cava with no pneumothorax. Bernard Hartman MD on April 02, 2016 at 10:30 Board Certified Radiologist. This report was verified electronically.
--- NOTE | 2016-04-02 10:37 | HHI.IDPN ---
Subjective Subjective Remarks Notes reviewed D/W RN Placed on rotaprone bed yesterday On sedation, nimbex and flolan On levophed Just had new central line placed this morning FiO2 at 100% Diuresing Febrile WBC up to 23 Antibiotics Levaquin Zyvox Flagyl Diflucan Past Medical History Morbid obesity Suspected to have obstructive sleep apnea Past Surgical History Right carpal tunnel surgery Allergies: Coded Allergies: Penicillin (Verified Allergy, Severe, Swelling, 03/24/16) Tetanus Toxoid (Verified Allergy, Unknown, Swelling, 03/24/16) Objective . Vital Signs Date Time Temp Pulse Resp B/P Pulse Ox O2 Delivery O2 Flow Rate FiO2 04/02/16 08:07 92 100 04/02/16 06:00 64 04/02/16 04:30 95 100 04/02/16 04:00 100 04/02/16 04:00 66 04/02/16 04:00 100.9 66 15 112/64 93 105/62 04/02/16 02:00 69 04/02/16 00:16 89 100 04/02/16 00:00 99.8 105 15 92/77 84 04/02/16 00:00 100 04/02/16 00:00 105 04/01/16 22:00 81 04/01/16 20:00 100.1 75 15 74/63 91 04/01/16 20:00 74 04/01/16 20:00 100 04/01/16 19:45 91 100 04/01/16 18:00 63 04/01/16 16:00 98.9 66 15 110/57 95 04/01/16 16:00 66 04/01/16 16:00 90 04/01/16 15:09 94 90 04/01/16 14:00 82 04/01/16 12:00 99.1 60 24 122/68 88 122/68 04/01/16 12:00 100 04/01/16 12:00 66 04/01/16 11:13 100 04/01/16 11:04 89 100 04/01/16 10:43 62 04/01/16 04/01/16 04/02/16 15:00 23:00 07:00 Intake Total 1336 ml 1141 ml 1532 ml Output Total 2050 ml 3310 ml 1325 ml Balance -714 ml -2169 ml 207 ml IV Total 1032 ml 798 ml 1169 ml Tube Feeding 214 ml 283 ml 263 ml Tube Irrigant 60 ml 100 ml Other 90 ml Output Urine Total 2050 ml 3300 ml 825 ml Stool Total 10 ml 500 ml . Laboratory Tests Test 04/01/16 04/02/16 03:45 04:30 White Blood Count 20.8 TH/MM3 23.4 TH/MM3 Red Blood Count 5.08 MIL/MM3 5.21 MIL/MM3 Hemoglobin 13.8 GM/DL 14.5 GM/DL Hematocrit 43.2 % 44.5 % Mean Corpuscular Volume 85.1 FL 85.5 FL Mean Corpuscular Hemoglobin 27.1 PG 27.8 PG Mean Corpuscular Hemoglobin 31.9 % 32.5 % Concent Red Cell Distribution Width 14.9 % 14.8 % Platelet Count 263 TH/MM3 284 TH/MM3 Mean Platelet Volume 9.4 FL 9.6 FL Neutrophils (%) (Auto) 94.2 % 91.6 % Lymphocytes (%) (Auto) 2.7 % 2.5 % Monocytes (%) (Auto) 2.9 % 5.6 % Eosinophils (%) (Auto) 0.0 % 0.0 % Basophils (%) (Auto) 0.2 % 0.3 % Neutrophils # (Auto) 19.6 TH/MM3 21.4 TH/MM3 Lymphocytes # (Auto) 0.6 TH/MM3 0.6 TH/MM3 Monocytes # (Auto) 0.6 TH/MM3 1.3 TH/MM3 Eosinophils # (Auto) 0.0 TH/MM3 0.0 TH/MM3 Basophils # (Auto) 0.1 TH/MM3 0.1 TH/MM3 CBC Comment DIFF FINAL DIFF FINAL Differential Comment Laboratory Tests Test 04/01/16 04/02/16 03:45 04:30 Sodium Level 136 MEQ/L 137 MEQ/L Potassium Level 4.4 MEQ/L 4.7 MEQ/L Chloride Level 99 MEQ/L 100 MEQ/L Carbon Dioxide Level 32.0 MEQ/L 28.3 MEQ/L Anion Gap 5 MEQ/L 9 MEQ/L Blood Urea Nitrogen 31 MG/DL 33 MG/DL Creatinine 0.89 MG/DL 1.01 MG/DL Estimat Glomerular Filtration 90 ML/MIN 78 ML/MIN Rate Random Glucose 379 MG/DL 356 MG/DL Calcium Level 8.7 MG/DL 8.6 MG/DL Phosphorus Level 2.3 MG/DL 3.8 MG/DL Magnesium Level 2.6 MG/DL 2.8 MG/DL Total Bilirubin 0.5 MG/DL 0.5 MG/DL Aspartate Amino Transf 23 U/L 22 U/L (AST/SGOT) Alanine Aminotransferase 48 U/L 51 U/L (ALT/SGPT) Alkaline Phosphatase 84 U/L 76 U/L Total Protein 7.1 GM/DL 7.4 GM/DL Albumin 2.8 GM/DL 3.0 GM/DL Microbiology Date/Time Procedure Status Source Growth 03/30/16 11:00 Gram Stain - Final Complete Sputum Endotracheal 03/30/16 11:00 Sputum Culture - Final Complete Staphylococcus Aureus 03/30/16 11:00 Urine Culture - Final Complete Urine Catheterized Urine NO GROWTH IN 48 HOURS. 03/30/16 19:20 Aerobic Blood Culture - Preliminary Resulted Blood Peripheral NO GROWTH IN 2 DAYS 03/30/16 19:20 Anaerobic Blood Culture - Preliminary Resulted Blood Peripheral NO GROWTH IN 2 DAYS 03/30/16 19:25 Aerobic Blood Culture - Preliminary Resulted Blood Peripheral NO GROWTH IN 2 DAYS 03/30/16 19:25 Anaerobic Blood Culture - Preliminary Resulted Blood Peripheral NO GROWTH IN 2 DAYS Imaging Chest X-Ray 04/01/16 0000 Signed Impressions: Service Date/Time: Friday, April 01, 2016 03:30 - CONCLUSION: No significant change has occurred. Henrry Andrea MD Abdomen X-Ray 03/31/16 0000 Signed Impressions: Service Date/Time: Thursday, March 31, 2016 09:58 - CONCLUSION: Benign abdomen. Rodrigo Martinez MD Chest X-Ray 03/30/16 0600 Signed Impressions: Service Date/Time: Wednesday, March 30, 2016 03:49 - CONCLUSION: No significant change has occurred. Henrry Andrea MD Physical Exam GENERAL: Morbidly obese, sedated and on paralytics, on the vent, He is on rotaprone bed. Limited exam due to contraption from the bed. MUSCULOSKELETAL: Extremities without clubbing, cyanosis, or edema. No joint tenderness, effusion, or edema noted. NEUROLOGICAL: Sedated on the vent. PSYCH: Unable to assess : Becker in place Assessment & Plan Remarks IMPRESSION Worsening leukocytosis, ?new infection - has been on adequate Abx for pathogens isolated - ?new HCAP, has increased O2 requirement though not much change on CXR ( though poor CXR due to his size) - UA ok - line placed 03/26 - no diarrhea - ?fungal, has been on steroids Pneumonia JACOB Respiratory failure, still with very high O requirement Morbid obesity Allergy to PCN, swelling Fevers RECOMMENDATION Continue Zyvox, Levaquin and Diflucan Continue Flagyl for now Repeat C/S Follow CBC Monitor progress D/W RN D/W Dr Florentino ([facility]) Elisha Painter MD Apr 02, 2016 10:37
[2016-04-02] MEDS: ARTIFICIAL TEARS OPTH OINT 3.5 APPLIC/3.5 GM TUBO EACH EYE SCH ×2 (13:52→20:16)
[2016-04-02] MEDS: FLUCONAZOLE 400 MG PREMIX BAG 200 ML IV SCH (15:40)
[2016-04-02] MEDS: PANTOPRAZOLE SODIUM 40 MG VIAL IV PUSH SCH (17:51)
[2016-04-03] VITALS (17 sets, daily range): BP systolic 96–132; BP diastolic 51–75; PULSE 62–109; RESP 15–19; TEMP 98.6–100.2; O2SAT 88–100
--- NOTE | 2016-04-03 00:54 | RADRPT ---
EXAM DATE/TIME: 04/03/2016 00:16 [facility] COMPARISON: CT THORAX W/O CONTRAST, March 28, 2016, 9:57. CHEST SINGLE AP, April 02, 2016, 9:22. INDICATIONS : Respiratory distress. MEDICAL HISTORY : None. SURGICAL HISTORY : None. ENCOUNTER: Subsequent ACUITY: 1 week PAIN SCORE: Non-responsive. LOCATION: Bilateral chest FINDINGS: Small lung volumes with bibasilar atelectasis noted. Slightly more confluent consolidation seen in th e right upper lobe of concern for pneumonia. Small, bilateral pleural effusions are suspected. I don' t see a pneumothorax. There is mild cardiomegaly again seen. Patient remains intubated. Endotracheal tube tip is about 5 cm above the chanelle. There is a right IJ central venous catheter again seen, tip in the superior vena cava. The left IJ line has been removed. CONCLUSION: Potential developing pneumonia in the right upper lobe. Bibasilar atelectasis modestly worse in the i nterim. Ubaldo Ortiz MD on April 03, 2016 at 0:48 Board Certified Radiologist. This report was verified electronically.
[2016-04-03] MEDS: MIDAZOLAM 100 MG/ML INJ 100 ML IV SCH ×4 (01:06→21:14)
[2016-04-03] MEDS: fentaNYL 2,500 MCG/NS 250 ML IV SCH ×4 (01:06→21:14)
[2016-04-03] MEDS: PROPOFOL 1000 MG/100 ML IV SCH ×11 (01:06→21:19)
[2016-04-03] MEDS: LINEZOLID 600 MG PREMIX 300 ML IV SCH ×2 (02:31→14:38)
[2016-04-03] MEDS: EPOPROSTENOL NEB SOLUTION 50 NG/KG/MIN 100 ML NEB SCH ×6 (02:33→17:40)
[2016-04-03 03:30] LABS: AUTOMATED NEUTROPHIL # 18.7 TH/MM3 (1.8-7.7); BASOPHIL % 0.1 % (0.0-2.0); HEMATOCRIT 44.4 % (39.0-51.0); LYMPH % 1.7 % (9.0-44.0); LYMPHOCYTE # 0.4 TH/MM3 (1.0-4.8); MEAN CELL VOLUME 85.6 FL (80.0-100.0); MEAN CORPUSCULAR HEMOGLOBIN 27.5 PG (27.0-34.0); MEAN CORPUSCULAR HGB CONC 32.1 % (32.0-36.0); NEUT % 89.2 % (16.0-70.0); PLATELET COUNT 271 TH/MM3 (150-450); RED BLOOD COUNT 5.18 MIL/MM3 (4.50-5.90); RED CELL DISTRIBUTION WIDTH 15.2 % (11.6-17.2); WHITE BLOOD COUNT 20.9 TH/MM3 (4.0-11.0)
[2016-04-03 03:31] LABS: HEMO FLAGS AUTO DIFF
[2016-04-03] MEDS: RESP: ALBUTEROL 2.5 MG/IPRATROPIUM 0.5 MG NEB (SCH) NEB ×4 (03:36→21:26)
[2016-04-03 03:58] LABS: ALT (GPT) 47 U/L (12-78); ANION GAP 5 MEQ/L (5-15); AST (GOT) 19 U/L (15-37); BLOOD UREA NITROGEN 38 MG/DL (7-18); CHLORIDE 97 MEQ/L (98-107); GLOMERULAR FILTRATION RATE 76 ML/MIN (>89); MAGNESIUM 2.8 MG/DL (1.5-2.5); SODIUM (NA) 136 MEQ/L (136-145)
[2016-04-03 04:01] LABS: ALKALINE PHOSPHATASE 81 U/L (45-117); CREATINE KINASE 200 U/L (39-308); TOTAL BILIRUBIN ADULT 0.5 MG/DL (0.2-1.0)
[2016-04-03 05:34] LABS: BANDS 2 % (0-6); MYELOCYTES 1 % (0-0); NEUTROPHIL # MANUAL DIFF 18.6 TH/MM3 (1.8-7.7); PLATELET ESTIMATE SMEAR NORMAL (NORMAL); PLATELET MORPHOLOGY NORMAL (NORMAL); POLYS (SEG NEUTROPHILS) 86 % (16-70); SCAN/DIFF FINAL DIFF MANUAL; WBC DIFF SAMPLE 100
[2016-04-03] MEDS: ENOXAPARIN SODIUM 40 MG/0.4 ML SYRINGE SQ SCH ×2 (06:05→17:15)
[2016-04-03] MEDS: INSULIN NovoLIN REGULAR SUPPLEMENTAL SCALE SQ SCH ×4 (06:05→17:48)
[2016-04-03] MEDS: METOCLOPRAMIDE HCL 10 MG/2 ML VIAL IV PUSH SCH ×3 (06:06→21:13)
[2016-04-03] MEDS: metroNIDAZOLE 500 MG INJ 100 ML IV SCH ×2 (07:40→16:16)
[2016-04-03] MEDS: CHLORHEXIDINE 0.12% (ORAL KIT) 15 ML CUP MT SCH ×2 (07:41→20:24)
[2016-04-03] MEDS: POLYETHYLENE GLYCOL 17 GM PKG PO SCH ×2 (08:17→21:14)
[2016-04-03] MEDS: methylPREDNISolone SOD SUCC 40 MG/1 ML VIAL IV PUSH SCH ×2 (08:17→21:13)
[2016-04-03] MEDS: SENNOSIDES SYRUP 8.8 MG/5 ML CUP PO/TUBE SCH ×2 (08:17→21:13)
[2016-04-03] MEDS: INSULIN DETEMIR 100 UNITS/ML VIAL SQ SCH (08:17)
[2016-04-03] MEDS: FUROSEMIDE 20 MG/2 ML VIAL IV PUSH SCH (08:17)
[2016-04-03] MEDS: DOCUSATE SODIUM 100 MG/10 ML UDC PO SCH ×2 (08:17→21:13)
[2016-04-03] MEDS: BENEPROTEIN POWDER 1 PACK G-TUBE SCH ×3 (08:18→17:15)
[2016-04-03] MEDS: TIOTROPIUM BROMIDE 18 MCG INH INH SCH (08:18)
[2016-04-03] MEDS: SODIUM CHLORIDE 0.9% FLUSH 5 ML FLUSH IVF SCH (08:18)
[2016-04-03] MEDS: BETAMETHASONE/CLOTRIMAZOLE CREAM 15 GM TOPICAL SCH ×2 (08:19→20:25)
[2016-04-03] MEDS: ARTIFICIAL TEARS OPTH OINT 3.5 APPLIC/3.5 GM TUBO EACH EYE SCH ×2 (08:19→20:25)
--- NOTE | 2016-04-03 10:18 | HHI.IDPN ---
Subjective Subjective Remarks Notes reviewed D/W RN On rotaprone - currently prone Did not tolerate supine On levophed FiO2 at 100% Diuresing Low grade temps WBC slightly better Antibiotics Levaquin Zyvox Flagyl Diflucan Lines TLC - 04/02 Past Medical History Morbid obesity Suspected to have obstructive sleep apnea Past Surgical History Right carpal tunnel surgery Allergies: Coded Allergies: Penicillin (Verified Allergy, Severe, Swelling, 03/24/16) Tetanus Toxoid (Verified Allergy, Unknown, Swelling, 03/24/16) Objective . Vital Signs Date Time Temp Pulse Resp B/P Pulse Ox O2 Delivery O2 Flow Rate FiO2 04/03/16 10:00 70 04/03/16 08:00 100 04/03/16 08:00 64 04/03/16 08:00 98.6 64 15 104/59 97 120/64 04/03/16 06:00 67 04/03/16 04:23 92 100 04/03/16 04:00 100.1 79 15 119/71 92 128/67 04/03/16 04:00 79 04/03/16 04:00 100 04/03/16 02:00 78 04/03/16 00:00 87 04/03/16 00:00 99.3 109 19 115/61 88 99/51 04/03/16 00:00 100 04/02/16 23:46 91 100 04/02/16 22:00 87 04/02/16 20:00 65 04/02/16 20:00 100 04/02/16 20:00 100.3 65 15 106/60 92 116/63 04/02/16 18:00 59 04/02/16 16:00 62 04/02/16 16:00 100 04/02/16 16:00 98.8 62 15 98/54 94 116/63 04/02/16 15:20 95 100 04/02/16 14:00 63 04/02/16 12:12 90 100 04/02/16 12:00 100 04/02/16 12:00 98.6 64 15 118/75 90 109/62 04/02/16 12:00 64 04/02/16 04/02/16 04/03/16 15:00 23:00 07:00 Intake Total 1769 ml 1959 ml 1660 ml Output Total 1600 ml 2300 ml 1600 ml Balance 169 ml -341 ml 60 ml IV Total 1179 ml 1572 ml 1230 ml Tube Feeding 230 ml 327 ml 330 ml Tube Irrigant 60 ml 60 ml 100 ml Other 300 ml Output Urine Total 1475 ml 2100 ml 1300 ml Stool Total 125 ml 200 ml 300 ml . Laboratory Tests Test 04/02/16 04/03/16 04:30 03:15 White Blood Count 23.4 TH/MM3 20.9 TH/MM3 Red Blood Count 5.21 MIL/MM3 5.18 MIL/MM3 Hemoglobin 14.5 GM/DL 14.2 GM/DL Hematocrit 44.5 % 44.4 % Mean Corpuscular Volume 85.5 FL 85.6 FL Mean Corpuscular Hemoglobin 27.8 PG 27.5 PG Mean Corpuscular Hemoglobin 32.5 % 32.1 % Concent Red Cell Distribution Width 14.8 % 15.2 % Platelet Count 284 TH/MM3 271 TH/MM3 Mean Platelet Volume 9.6 FL 9.3 FL Neutrophils (%) (Auto) 91.6 % 89.2 % Lymphocytes (%) (Auto) 2.5 % 1.7 % Monocytes (%) (Auto) 5.6 % 9.0 % Eosinophils (%) (Auto) 0.0 % 0.0 % Basophils (%) (Auto) 0.3 % 0.1 % Neutrophils # (Auto) 21.4 TH/MM3 18.7 TH/MM3 Lymphocytes # (Auto) 0.6 TH/MM3 0.4 TH/MM3 Monocytes # (Auto) 1.3 TH/MM3 1.9 TH/MM3 Eosinophils # (Auto) 0.0 TH/MM3 0.0 TH/MM3 Basophils # (Auto) 0.1 TH/MM3 0.0 TH/MM3 CBC Comment DIFF FINAL AUTO DIFF Differential Comment FINAL DIFF MANUAL Differential Total Cells 100 Counted Neutrophils % (Manual) 86 % Band Neutrophils % 2 % Lymphocytes % 1 % Monocytes % 10 % Neutrophils # (Manual) 18.6 TH/MM3 Myelocytes 1 % Platelet Estimate NORMAL Platelet Morphology Comment NORMAL Red Cell Morphology Comment NORMAL Laboratory Tests Test 04/02/16 04/03/16 04:30 03:15 Sodium Level 137 MEQ/L 136 MEQ/L Potassium Level 4.7 MEQ/L 5.0 MEQ/L Chloride Level 100 MEQ/L 97 MEQ/L Carbon Dioxide Level 28.3 MEQ/L 34.0 MEQ/L Anion Gap 9 MEQ/L 5 MEQ/L Blood Urea Nitrogen 33 MG/DL 38 MG/DL Creatinine 1.01 MG/DL 1.04 MG/DL Estimat Glomerular Filtration 78 ML/MIN 76 ML/MIN Rate Random Glucose 356 MG/DL 382 MG/DL Calcium Level 8.6 MG/DL 8.8 MG/DL Phosphorus Level 3.8 MG/DL 4.1 MG/DL Magnesium Level 2.8 MG/DL 2.8 MG/DL Total Bilirubin 0.5 MG/DL 0.5 MG/DL Aspartate Amino Transf 22 U/L 19 U/L (AST/SGOT) Alanine Aminotransferase 51 U/L 47 U/L (ALT/SGPT) Alkaline Phosphatase 76 U/L 81 U/L Total Protein 7.4 GM/DL 7.6 GM/DL Albumin 3.0 GM/DL 3.0 GM/DL Lactic Acid Level 1.6 mmol/L Total Creatine Kinase 200 U/L Microbiology Date/Time Procedure Status Source Growth 04/02/16 11:32 Aerobic Blood Culture Received Blood Line Pending 04/02/16 11:32 Anaerobic Blood Culture Received Blood Line Pending 04/02/16 11:40 Aerobic Blood Culture Received Blood Line Pending 04/02/16 11:40 Anaerobic Blood Culture Received Blood Line Pending 04/02/16 19:40 Gram Stain Received Sputum Endotracheal Pending 04/02/16 19:40 Sputum Culture Received Sputum Endotracheal Pending Imaging Chest X-Ray 04/03/16 0600 Signed Impressions: Service Date/Time: Sunday, April 03, 2016 00:16 - CONCLUSION: Potential developing pneumonia in the right upper lobe. Bibasilar atelectasis modestly worse in the interim. Ubaldo Ortiz MD Chest X-Ray 04/02/16 0925 Signed Impressions: Service Date/Time: Saturday, April 02, 2016 09:22 - CONCLUSION: Place a right jugular catheter terminates superior vena cava with no pneumothorax. Bernard Hartman MD Chest X-Ray 04/01/16 0000 Signed Impressions: Service Date/Time: Friday, April 01, 2016 03:30 - CONCLUSION: No significant change has occurred. Henrry Andrea MD Abdomen X-Ray 03/31/16 0000 Signed Impressions: Service Date/Time: Thursday, March 31, 2016 09:58 - CONCLUSION: Benign abdomen. Rodrigo Martinez MD Chest X-Ray 03/30/16 0600 Signed Impressions: Service Date/Time: Wednesday, March 30, 2016 03:49 - CONCLUSION: No significant change has occurred. Henrry Andrea MD Physical Exam GENERAL: Morbidly obese, sedated and on paralytics, on the vent, He is on rotaprone bed. SKIN: Has some papular rash in his upper back FACE: Edematous, ET in place CHEST: Coarse BS posteriorly MUSCULOSKELETAL: Extremities without clubbing, cyanosis NEUROLOGICAL: Sedated on the vent. PSYCH: Unable to assess : Becker in place Assessment & Plan Remarks IMPRESSION Worsening leukocytosis, ?new infection - has been on adequate Abx for pathogens isolated - ?new HCAP, has increased O2 requirement though not much change on CXR ( though poor CXR due to his size) - UA ok - line placed 03/26 - no diarrhea - ?fungal, has been on steroids Pneumonia JACOB Respiratory failure, still with very high O requirement Morbid obesity Allergy to PCN, swelling Fevers RECOMMENDATION Continue Zyvox, Levaquin and Diflucan Continue Flagyl for now Repeat C/S Follow CBC Monitor progress On rotaprone bed D/W RN D/W Dr Florentino ([facility]) Elisha Painter MD Apr 03, 2016 10:18
[2016-04-03 10:57] LABS: BLOOD GAS BASE EXCESS -4.8 mmol/L (-2-2); BLOOD GAS CARBOXYHEMOGLOBIN 1.4 % (0-4); BLOOD GAS HCO3 18 mmol/L (22-26); BLOOD GAS METHEMOGLOBIN 1.2 % (0-2); BLOOD GAS O2 HGB SATURATION 97 % (90-100); BLOOD GAS OXYGEN CONTENT 22.1 Vol % (12.0-20.0); BLOOD GAS PCO2 22 mmHg (38-42); BLOOD GAS PO2 157 mmHg (61-120); BLOOD GAS TOTAL HGB 16.1 G/DL (12.0-16.0); CRITICAL VALUE YES; OXYGEN DEVICE VENTILATOR; TEMP CORR TO 98.6
[2016-04-03 10:58] LABS: DRAW SITE ART LINE; FIO2 100 %; STAT NO; VENT SETTINGS PC/AC RATE 15
[2016-04-03] MEDS: CISATRACURIUM INJ 100 MG in SODIUM CHLOR 0.9% 250 ML INJ 240 ML IV SCH ×3 (10:59→22:42)
[2016-04-03] MEDS ORDERED: INSULIN HUMAN NPH 1,000 UNITS/10 ML VIAL SQ ONE (13:00)
[2016-04-03] MEDS ORDERED: SODIUM CHLOR 0.9% 1000 ML INJ 1,000 ML IV ONE (13:00)
[2016-04-03] MEDS ORDERED: SODIUM POLYSTYRENE SULFONATE SUSP 15 GM/60 ML CUP PO ONE (13:00)
--- NOTE | 2016-04-03 13:03 | HHI.CCPN ---
Subjective Remarks/Hospital Course Patient is a 50 years old obese male with past medical history significant for undiagnosed sleep apnea, super morbid obesity, type 2 diabetes was brought to the emergency department on 03/24/16 after feeling light headed and dizzy. On presentation here was found to be hypoxemic and ABG showed severe hypoxemia and hypercarbia. For a recent driving physical he was diagnosed with low oxygen saturations. Patient's oxygen saturation the ED was in the low 80s, which was confirmed on ABG with a oxygen saturation of 78% and PO2 of 46. CTA negative for PE. Patient was initiated on BiPAP therapy with consult to pulmonary Dr. Crane. His oxygenation improved but he continued to be hypercapnic. Today a.m. on nasal cannula his pH was 7.26 and PCO2 was increased at 99, patient was somnolent was placed back on BiPAP and repeat ABG at noon showed pH 7.26 PCO2 98 and pO2 70. This was on 16 BiPAP with FiO2 50%. Critical care was consulted. On my evaluation patient is somnolent but wakes up easily. I reduced the PEEP on BiPAP from 12-7 to facilitate better ventilation. A repeat ANG showed only minimal improvement, so decision made to intubate patient. Glidescope with #4 blade was used. Only propofol was used for induction. Initially I had a Grade 1-2 view, but I was unable to pass tube through the vocal cord to trachea in two attempts. Tube slipped out of Laryngeal opening both times. Dr Garrett intubated patient after NM paralysis with succinylcholine. Post intubation ABG showed improvement in hypercapnia and oxygenation. 03/27/16: Patient remains intubated heavily sedated with propofol and fentanyl. Remained severely hypoxemic on 100% FiO2, PEEP12, chest x-ray shows bibasilar infiltrates. Flagyl added. We'll give 1 dose of vancomycin-Adjust antibiotics according to cultures. Patient super morbid obesity may prevent Prone therapy 03/28: Remains hypoxic but ABG shows marginal improvement in oxygenation. WBC increasing 20.1 today. Start vancomycin scheduled. 03/29: Oxygenation is slightly improved. FiO2 reduced to 50% today. Chest x- ray remains unchanged. On sedation hold patient does wake up and follow commands. WBC count remains at 20 03/30 No acute events overnight. Sedated with Diprivan and Fentanyl. Had T: 100.1 at 4 am. WBC trending down 15.9 today from 20. 03/31 Patient remains sedated with Diprivan, Fentanyl and intubated. Tmax 100.1. Patient required increase O2 overnight now on ACV with PEEP: 12 and FIO2 70%. 04/01: Tmax 99.7. No bowel movement since admission. Patient has bowel sounds. Arousable on the ventilator. We'll attempt prone the patient paralyzed to increase oxygenation status. 04/02: MAXIMUM TEMPERATURE 100.9. Currently 97.7. 5 10 cc stools overnight. Placed on Roto prone yesterday. Saturations currently 94% on Flolan. Diuresed overnight. Creatinine still within normal limits. Subjective 04/03: Tmax 101. Currently 99.1. Positive BM. Did not tolerate not being unprone this AM. Saturations much improved prone. Tolerating tube feeding. Objective Vital Signs Date Time Temp Pulse Resp B/P Pulse Ox O2 Delivery O2 Flow Rate FiO2 04/03/16 12:00 99.1 66 15 96/52 96 114/61 04/03/16 12:00 100 Intake and Output 04/02/16 04/02/16 04/03/16 08:00 16:00 00:00 Intake Total 1532 ml 1769 ml 1959 ml Output Total 1325 ml 1600 ml 2300 ml Balance 207 ml 169 ml -341 ml Result Diagram: 04/03/16 0315 04/03/16 0315 Other Results Microbiology Date/Time Procedure Status Source Growth 04/02/16 19:40 Gram Stain - Final Resulted Sputum Endotracheal 04/02/16 19:40 Sputum Culture Resulted Sputum Endotracheal Pending 04/02/16 11:40 Aerobic Blood Culture - Preliminary Resulted Blood Line NO GROWTH IN 1 DAY 04/02/16 11:40 Anaerobic Blood Culture - Preliminary Resulted Blood Line NO GROWTH IN 1 DAY 03/30/16 11:00 Urine Culture - Final Complete Urine Catheterized Urine NO GROWTH IN 48 HOURS. Imaging Last Impressions Chest X-Ray 04/03/16 0600 Signed Impressions: Service Date/Time: Sunday, April 03, 2016 00:16 - CONCLUSION: Potential developing pneumonia in the right upper lobe. Bibasilar atelectasis modestly worse in the interim. Ubaldo Ortiz MD Abdomen X-Ray 03/31/16 0000 Signed Impressions: Service Date/Time: Thursday, March 31, 2016 09:58 - CONCLUSION: Benign abdomen. Rodrigo Martinez MD Chest CT 03/28/16 0836 Signed Impressions: Service Date/Time: Monday, March 28, 2016 09:57 - CONCLUSION: Development areas of air bronchograms and consolidation more prominent in the right and left posterior basilar segments of the lower lobes. ET tube above the chanelle. Bernard Hartman MD CT Angiography 03/24/16 1121 Signed Impressions: Service Date/Time: Thursday, March 24, 2016 12:47 - CONCLUSION: 1. There is respiratory motion artifact but no PE is identified through most of the segmental level pulmonary arteries. 2. Mildly enlarged main pulmonary artery may indicate pulmonary arterial hypertension. 3. 11 mm left lower lobe noncalcified pulmonary nodule. Suggest correlation with any prior imaging studies that could confirm longer-term stability. If none are available consider short-term followup noncontrast chest CT in approximately 3 months. Ubaldo Rodas MD Objective Remarks GENERAL: 50-year-old male, critically ill currently resting in bed in no acute distress SKIN: Evidence of seborrheic dermatitis of the face HEAD: Atraumatic. Normocephalic. EYES: Pupils equal round and reactive about 3 Richardson's bilaterally. ENT: NG tube in place. We'll check intubated NECK: Very large neck. Trachea midline. LIJ central line in place CARDIOVASCULAR: RRR. S1, S2. No S4. Without murmur RESPIRATORY: Breath sounds equal bilaterally. Mild rhonchorous breath sounds GASTROINTESTINAL: Abdomen soft, obese, nontender. Severe central obesity MUSCULOSKELETAL: Extremities with trace nonpitting bilateral lower extremity edema. NEUROLOGICAL: Intubated and paralyzed on the ventilator. Urinary Catheter: Yes Assessment to: Continue Becker insert reason: ICU Pt Getting Diuretics Date of Insertion: Apr 02, 2016 Line: Central Venous Catheter Side: Right Location: Internal, Jugular A/P Assessment and Plan NEURO/Psych: -On propofol and 50 mcg/kg per minute, Versed drip at 10 mg an hour and fentanyl drip at 250 g an hour for sedation/analgesia while intubated Nimbex drip currently at 2 mcg/kg per minute to maintain a [id number] 2/4 Daily sedation vacation on hold secondary to paralytic/oxygenation status. Acetaminophen for fever Paralyzed with Nimbex [id number] 2 out of 4. BIS 40-60 RESP: Acute respiratory failure Obstructive sleep apnea Obesity hypoventilation syndrome Staph aureus pneumonia Left lower lobe pulmonary nodule of 11 millimeters - follow up CT chest 3 months without contrast recommended Pulmonary edema PC/AC /. Ventilator bundle Bronchodilator therapy every 6 hours and as needed -Emergently intubated and placed on mechanical ventilation 03/26/16 Continue Flolan today at 50 ng/kg per minute for oxygenation. -Solu-Medrol 40 mg IV q12 CTA chest revealed no PE. Possible pulmonary arterial hypertension. 11 mm pulmonary nodule. Bilateral lower lobe air bronchograms Paralyzed with Nimbex drip 04/01 and prone patient. CV: -Monitor HR and BP keep MAP>65mmHg -2-D echo 03/26 EF 60%. No regional wall motion abnormality. Mild . Mild MR/ TR Currently not requiring any anti-hypertensives and or vasopressors GI: Constipation Hypoalbuminemia -Tube feeds with Glucerna 1.5@45ml/hr, - IV Protonix 40 mg IV daily -Colace, senna for bowel regimen MiraLAX twice a day to be continued. /FEN: Hyper-magnesium -Monitor renal function, I/O's, electrolytes replacement per protocol. -On Lasix 20mg BID will be discontinued today ID/DERM: Staph aureus pneumonia Infectious disease consultation/Dr. Painter. Appreciate recommendations. -Continue with abx (Zyvox, Levaquin day #4 and Flagyl since 03/26.) Continue Diflucan 40 mg IV day #4. Discontinued vancomycin and aztreonam 03/31 -03/30 sputum culture with staph aureus - 03/30 - urine - no growth - 03/30 - blood cultures 2 - negative -03/27 Sputum culture with staph aureus -03/26 03/07 bottles coag negative staph probable contamination HEME: Leukocytosis -Monitor CBC, CMP, coags ENDO: Diabetes mellitus Hyperglycemia critical illness Increase Levemir 40 units twice a day. -Increase SSI to medium scale and greater than 15 units provided past 24 hours On metformin 500 mg by mouth twice a day at home. This has been held MSK: Morbid obesity Weight loss encouraged. PT evaluate and treat PROPH: -Bilateral lower extremity SCDs. IV Protonix 40 mg daily. Lovenox 40 mg sq BID LINES: -Right IJ CVL in right radial art line 04/02- present -LIJ central line and L radial art line in place 03/26 - 04/02. Critical Care: The total critical care time was 35 minutes. Time to perform other separately billable procedures was not included in the critical care time. Codey Florentino MD Apr 03, 2016 13:03
[2016-04-03] MEDS: LACTOBACILLUS ACIDOPHILUS TAB PO SCH ×2 (13:08→17:15)
[2016-04-03] MEDS: LEVOFLOXACIN 750 MG PREMIX INJ 150 ML IV SCH (13:09)
[2016-04-03 15:57] LABS: C. DIFF EPI 027 PRESUMPTIVE NEGATIVE (NEGATIVE); C. DIFF TOXIN PCR NEGATIVE (NEGATIVE)
[2016-04-03] MEDS: FLUCONAZOLE 400 MG PREMIX BAG 200 ML IV SCH (16:16)
[2016-04-03] MEDS: ACETAMINOPHEN 650 MG/20.3 ML UDC PO PRN (17:15)
[2016-04-03] MEDS: PANTOPRAZOLE SODIUM 40 MG VIAL IV PUSH SCH (17:15)
[2016-04-03] MEDS ORDERED: DEXTROSE 50% IN WATER 50 ML VIAL(D50) IV PUSH PRN (17:45)
[2016-04-03] MEDS ORDERED: MISC INFORMATION XX ONE (17:45)
[2016-04-03] MEDS: INSULIN REGULAR (IV INFUSION) 100 UNITS in SODIUM CHLORIDE 0.9% INJ 99 ML IV SCH ×2 (18:20→22:44)
[2016-04-03] MEDS ORDERED: INSULIN DETEMIR 100 UNITS/ML VIAL SQ SCH (21:00)
[2016-04-04] VITALS (18 sets, daily range): BP systolic 104–144; BP diastolic 55–91; PULSE 61–91; RESP 15; TEMP 98.5–100; O2SAT 90–97
[2016-04-04] MEDS: metroNIDAZOLE 500 MG INJ 100 ML IV SCH ×3 (00:18→14:29)
[2016-04-04] MEDS: PROPOFOL 1000 MG/100 ML IV SCH ×10 (00:39→20:10)
[2016-04-04] MEDS: EPOPROSTENOL NEB SOLUTION 50 NG/KG/MIN 100 ML NEB SCH ×8 (02:00→20:10)
[2016-04-04] MEDS: LINEZOLID 600 MG PREMIX 300 ML IV SCH (02:45)
[2016-04-04] MEDS: RESP: ALBUTEROL 2.5 MG/IPRATROPIUM 0.5 MG NEB (SCH) NEB ×5 (03:48→21:10)
[2016-04-04 04:44] LABS: AUTOMATED NEUTROPHIL # 15.8 TH/MM3 (1.8-7.7); BASOPHIL % 0.3 % (0.0-2.0); HEMO FLAGS DIFF FINAL; LYMPH % 2.3 % (9.0-44.0); LYMPHOCYTE # 0.4 TH/MM3 (1.0-4.8); MEAN CELL VOLUME 85.1 FL (80.0-100.0); MEAN CORPUSCULAR HEMOGLOBIN 27.1 PG (27.0-34.0); MEAN CORPUSCULAR HGB CONC 31.9 % (32.0-36.0); MONO % 6.2 % (0.0-8.0); NEUT % 91.2 % (16.0-70.0); PLATELET COUNT 286 TH/MM3 (150-450); RED BLOOD COUNT 4.82 MIL/MM3 (4.50-5.90); RED CELL DISTRIBUTION WIDTH 14.6 % (11.6-17.2); WHITE BLOOD COUNT 17.3 TH/MM3 (4.0-11.0)
[2016-04-04 05:00] LABS: ALT (GPT) 33 U/L (12-78); ANION GAP 6 MEQ/L (5-15); AST (GOT) 8 U/L (15-37); BICARBONATE 30.9 MEQ/L (21.0-32.0); BLOOD UREA NITROGEN 29 MG/DL (7-18); CHLORIDE 102 MEQ/L (98-107); GLOMERULAR FILTRATION RATE 99 ML/MIN (>89); MAGNESIUM 2.6 MG/DL (1.5-2.5); POTASSIUM 4.3 MEQ/L (3.5-5.1); SODIUM (NA) 139 MEQ/L (136-145)
[2016-04-04 05:17] LABS: ALKALINE PHOSPHATASE 69 U/L (45-117); TOTAL BILIRUBIN ADULT 0.4 MG/DL (0.2-1.0)
[2016-04-04 05:18] LABS: CREATINE KINASE 76 U/L (39-308)
[2016-04-04] MEDS: METOCLOPRAMIDE HCL 10 MG/2 ML VIAL IV PUSH SCH ×3 (05:28→21:29)
[2016-04-04] MEDS: ENOXAPARIN SODIUM 40 MG/0.4 ML SYRINGE SQ SCH ×2 (05:28→17:06)
[2016-04-04] MEDS: CISATRACURIUM INJ 100 MG in SODIUM CHLOR 0.9% 250 ML INJ 240 ML IV SCH ×3 (05:32→20:10)
--- NOTE | 2016-04-04 06:39 | RADRPT ---
EXAM DATE/TIME: 04/04/2016 04:44 [facility] COMPARISON: No previous studies available for comparison. INDICATIONS : Respiratory distress. MEDICAL HISTORY : None. SURGICAL HISTORY : None. ENCOUNTER: Subsequent ACUITY: 1 week PAIN SCORE: Non-responsive. LOCATION: Bilateral chest FINDINGS: Worsening bilateral consolidation, basilar predominant on the right and fairly diffuse especially per ihilar on the left. Small, bilateral pleural effusions are suspected. No pneumothorax. Mild cardiomegaly is stable. Endotracheal tube tip is at the level of the thoracic inlet. Nasogastric tube tip in the stomach. The re is a right internal jugular central venous catheter with tip in the superior vena cava. CONCLUSION: Worsening bilateral airspace opacities, especially left perihilar. Ubaldo Ortiz MD on April 04, 2016 at 6:36 Board Certified Radiologist. This report was verified electronically.
[2016-04-04] MEDS: TIOTROPIUM BROMIDE 18 MCG INH INH SCH (07:26)
--- NOTE | 2016-04-04 07:50 | HHI.CCPN ---
Subjective Remarks/Hospital Course Patient is a 50 years old obese male with past medical history significant for undiagnosed sleep apnea, super morbid obesity, type 2 diabetes was brought to the emergency department on 03/24/16 after feeling light headed and dizzy. On presentation here was found to be hypoxemic and ABG showed severe hypoxemia and hypercarbia. For a recent driving physical he was diagnosed with low oxygen saturations. Patient's oxygen saturation the ED was in the low 80s, which was confirmed on ABG with a oxygen saturation of 78% and PO2 of 46. CTA negative for PE. Patient was initiated on BiPAP therapy with consult to pulmonary Dr. Crane. His oxygenation improved but he continued to be hypercapnic. Today a.m. on nasal cannula his pH was 7.26 and PCO2 was increased at 99, patient was somnolent was placed back on BiPAP and repeat ABG at noon showed pH 7.26 PCO2 98 and pO2 70. This was on 16 BiPAP with FiO2 50%. Critical care was consulted. On my evaluation patient is somnolent but wakes up easily. I reduced the PEEP on BiPAP from 12-7 to facilitate better ventilation. A repeat ANG showed only minimal improvement, so decision made to intubate patient. Glidescope with #4 blade was used. Only propofol was used for induction. Initially I had a Grade 1-2 view, but I was unable to pass tube through the vocal cord to trachea in two attempts. Tube slipped out of Laryngeal opening both times. Dr Garrett intubated patient after NM paralysis with succinylcholine. Post intubation ABG showed improvement in hypercapnia and oxygenation. 03/27/16: Patient remains intubated heavily sedated with propofol and fentanyl. Remained severely hypoxemic on 100% FiO2, PEEP12, chest x-ray shows bibasilar infiltrates. Flagyl added. We'll give 1 dose of vancomycin-Adjust antibiotics according to cultures. Patient super morbid obesity may prevent Prone therapy 03/28: Remains hypoxic but ABG shows marginal improvement in oxygenation. WBC increasing 20.1 today. Start vancomycin scheduled. 03/29: Oxygenation is slightly improved. FiO2 reduced to 50% today. Chest x- ray remains unchanged. On sedation hold patient does wake up and follow commands. WBC count remains at 20 03/30 No acute events overnight. Sedated with Diprivan and Fentanyl. Had T: 100.1 at 4 am. WBC trending down 15.9 today from 20. 03/31 Patient remains sedated with Diprivan, Fentanyl and intubated. Tmax 100.1. Patient required increase O2 overnight now on ACV with PEEP: 12 and FIO2 70%. 04/01: Tmax 99.7. No bowel movement since admission. Patient has bowel sounds. Arousable on the ventilator. We'll attempt prone the patient paralyzed to increase oxygenation status. 04/02: MAXIMUM TEMPERATURE 100.9. Currently 97.7. 5 10 cc stools overnight. Placed on Roto prone yesterday. Saturations currently 94% on Flolan. Diuresed overnight. Creatinine still within normal limits. 04/03: Tmax 101. Currently 99.1. Positive BM. Did not tolerate not being unprone this AM. Saturations much improved prone. Tolerating tube feeding. Subjective 04/04: Tmax 100.8. Currently 98.8. +2 L past 24 hours. Attempt to on prone today. Positive BM. C. difficile negative. Remains paralyzed Objective Vital Signs Date Time Temp Pulse Resp B/P Pulse Ox O2 Delivery O2 Flow Rate FiO2 04/04/16 06:00 72 04/04/16 04:00 98.8 15 113/59 96 115/63 04/04/16 04:00 100 Intake and Output 04/03/16 04/03/16 04/04/16 08:00 16:00 00:00 Intake Total 1660 ml 2452 ml 2370 ml Output Total 1600 ml 2050 ml 1100 ml Balance 60 ml 402 ml 1270 ml Result Diagram: 04/04/16 0400 04/04/16 0400 Other Results Microbiology Date/Time Procedure Status Source Growth 04/02/16 19:40 Gram Stain - Final Resulted Sputum Endotracheal 04/02/16 19:40 Sputum Culture - Preliminary Resulted Sputum Endotracheal IMMATURE GROWTH - REINCUBATE 04/02/16 11:40 Aerobic Blood Culture - Preliminary Resulted Blood Line NO GROWTH IN 1 DAY 04/02/16 11:40 Anaerobic Blood Culture - Preliminary Resulted Blood Line NO GROWTH IN 1 DAY 03/30/16 11:00 Urine Culture - Final Complete Urine Catheterized Urine NO GROWTH IN 48 HOURS. Imaging Last Impressions Chest X-Ray 04/04/16 0600 Signed Impressions: Service Date/Time: Monday, April 04, 2016 04:44 - CONCLUSION: Worsening bilateral airspace opacities, especially left perihilar. Ubaldo Ortiz MD Abdomen X-Ray 03/31/16 0000 Signed Impressions: Service Date/Time: Thursday, March 31, 2016 09:58 - CONCLUSION: Benign abdomen. Rodrigo Martinez MD Chest CT 03/28/16 0836 Signed Impressions: Service Date/Time: Monday, March 28, 2016 09:57 - CONCLUSION: Development areas of air bronchograms and consolidation more prominent in the right and left posterior basilar segments of the lower lobes. ET tube above the chanelle. Bernard Hartman MD CT Angiography 03/24/16 1121 Signed Impressions: Service Date/Time: Thursday, March 24, 2016 12:47 - CONCLUSION: 1. There is respiratory motion artifact but no PE is identified through most of the segmental level pulmonary arteries. 2. Mildly enlarged main pulmonary artery may indicate pulmonary arterial hypertension. 3. 11 mm left lower lobe noncalcified pulmonary nodule. Suggest correlation with any prior imaging studies that could confirm longer-term stability. If none are available consider short-term followup noncontrast chest CT in approximately 3 months. Ubaldo Rodas MD Objective Remarks GENERAL: 50-year-old male, critically ill currently resting in bed in no acute distress SKIN: Evidence of seborrheic dermatitis of the face HEAD: Atraumatic. Normocephalic. EYES: Pupils equal round and slightly reactive about 3 millimeters bilaterally. ENT: NG tube in place. NECK: Very large neck. Trachea midline. Right IJ clean dry and intact CARDIOVASCULAR: Distant heart sounds. RRR. S1, S2. No S4. Without murmur RESPIRATORY: Breath sounds equal bilaterally. Diminished breath sounds due to body habitus. GASTROINTESTINAL: Abdomen soft, obese, nontender. Severe central obesity MUSCULOSKELETAL: Extremities with trace to 1+ nonpitting bilateral lower extremity edema. NEUROLOGICAL: Intubated and paralyzed on the ventilator. Urinary Catheter: Yes Assessment to: Continue Becker insert reason: ICU Pt Getting Diuretics Vascular Central Line Catheter: Yes Assessment to: Continue Date of Insertion: Apr 02, 2016 Line: Central Venous Catheter Side: Right Location: Internal, Jugular A/P Assessment and Plan NEURO/Psych: -On propofol and 50 mcg/kg per minute, Versed drip at 10 mg an hour and fentanyl drip at 250 g an hour for sedation/analgesia while intubated Nimbex drip currently at 3 mcg/kg per minute to maintain a [id number] 2/4 Daily sedation vacation on hold secondary to paralytic/oxygenation status. Acetaminophen for fever Paralyzed with Nimbex [id number] 2 out of 4. BIS 40-60 RESP: Acute respiratory failure Obstructive sleep apnea Obesity hypoventilation syndrome Staph aureus pneumonia Left lower lobe pulmonary nodule of 11 millimeters - follow up CT chest 3 months without contrast recommended Pulmonary edema PRVC 15/around 570/1.65/15/100 Ventilator bundle Bronchodilator therapy every 4 hours and as needed -Emergently intubated and placed on mechanical ventilation 03/26/16 Continue Flolan today at 50 ng/kg per minute for oxygenation. -Solu-Medrol 40 mg IV q12 CTA chest revealed no PE. Possible pulmonary arterial hypertension. 11 mm pulmonary nodule. Bilateral lower lobe air bronchograms Paralyzed with Nimbex drip 04/01 and prone patient. CV: -Monitor HR and BP keep MAP>65mmHg -2-D echo 03/26 EF 60%. No regional wall motion abnormality. Mild . Mild MR/ TR Currently not requiring any anti-hypertensives and or vasopressors GI: Constipation Hypoalbuminemia -Tube feeds with Glucerna 1.5@45ml/hr, - IV Protonix 40 mg IV daily -Colace, senna for bowel regimen /FEN: Hyper-magnesium -Monitor renal function, I/O's, electrolytes replacement per protocol. -On Lasix 20mg BID ID/DERM: Staph aureus pneumonia Infectious disease consultation/Dr. Painter. Appreciate recommendations. -Continue with abx (Zyvox, Levaquin day #5 and Flagyl since 03/26.) Continue Diflucan 40 mg IV day #5. Discontinued vancomycin and aztreonam 03/31 - Blood cultures 04/02 - no growth - Sputum 04/02 - reincubate -03/30 sputum culture with staph aureus - 03/30 - urine - no growth - 03/30 - blood cultures 2 - negative -03/27 Sputum culture with staph aureus -03/26 03/07 bottles coag negative staph probable contamination HEME: Leukocytosis -Monitor CBC, CMP, coags ENDO: Diabetes mellitus Hyperglycemia critical illness Currently on insulin drip algorithm #3 On metformin 500 mg by mouth twice a day at home. This has been held MSK: Morbid obesity Weight loss encouraged. PT evaluate and treat PROPH: -Bilateral lower extremity SCDs. IV Protonix 40 mg daily. Lovenox 40 mg sq BID LINES: -Right IJ CVL in right radial art line 04/02- present -LIJ central line and L radial art line in place 03/26 - 04/02. Critical Care: The total critical care time was 35 minutes. Time to perform other separately billable procedures was not included in the critical care time. Codey Florentino MD Apr 04, 2016 07:50 MSK: Morbid obesity Weight loss encouraged. PT evaluate and treat PROPH: -Bilateral lower extremity SCDs. IV Protonix 40 mg daily. Lovenox 40 mg sq BID LINES: -Right IJ CVL in right radial art line 04/02- present -LIJ central line and L radial art line in place 03/26 - 04/02. Critical Care: The total critical care time was 35 minutes. Time to perform other separately billable procedures was not included in the critical care time. Codey Florentino MD Apr 04, 2016 07:50
[2016-04-04] MEDS: LACTOBACILLUS ACIDOPHILUS TAB PO SCH ×3 (07:57→17:06)
[2016-04-04] MEDS: methylPREDNISolone SOD SUCC 40 MG/1 ML VIAL IV PUSH SCH ×2 (07:57→20:08)
[2016-04-04] MEDS: SENNOSIDES SYRUP 8.8 MG/5 ML CUP PO/TUBE SCH ×2 (07:57→20:08)
[2016-04-04] MEDS: BENEPROTEIN POWDER 1 PACK G-TUBE SCH ×3 (07:57→17:06)
[2016-04-04] MEDS: DOCUSATE SODIUM 100 MG/10 ML UDC PO SCH ×2 (07:57→20:08)
[2016-04-04] MEDS: CHLORHEXIDINE 0.12% (ORAL KIT) 15 ML CUP MT SCH ×2 (07:58→19:28)
[2016-04-04] MEDS: ARTIFICIAL TEARS OPTH OINT 3.5 APPLIC/3.5 GM TUBO EACH EYE SCH ×2 (07:58→20:09)
[2016-04-04] MEDS: BETAMETHASONE/CLOTRIMAZOLE CREAM 15 GM TOPICAL SCH ×2 (07:59→20:08)
[2016-04-04] MEDS: SODIUM CHLORIDE 0.9% FLUSH 5 ML FLUSH IVF PRN ×2 (07:59)
[2016-04-04] MEDS: SODIUM CHLORIDE 0.9% FLUSH 5 ML FLUSH IVF SCH (07:59)
[2016-04-04] MEDS ORDERED: DEXTROSE 50% IN WATER 50 ML VIAL(D50) IV PUSH PRN (09:00)
--- NOTE | 2016-04-04 09:58 | HHI.IDPN ---
Subjective Subjective Remarks Notes reviewed D/W RN Has occ low grade temps Off pressors Currently supine, sats 94% Sats higher when prone Multiple sedation and nimbex FiO2 at 100% WBC better CXR worse Antibiotics Levaquin Zyvox Flagyl Diflucan Lines TLC - 04/02 Past Medical History Morbid obesity Suspected to have obstructive sleep apnea Past Surgical History Right carpal tunnel surgery Allergies: Coded Allergies: Penicillin (Verified Allergy, Severe, Swelling, 03/24/16) Tetanus Toxoid (Verified Allergy, Unknown, Swelling, 03/24/16) Objective . Vital Signs Date Time Temp Pulse Resp B/P Pulse Ox O2 Delivery O2 Flow Rate FiO2 04/04/16 08:00 98.5 63 15 106/59 97 136/74 04/04/16 08:00 90 04/04/16 08:00 63 04/04/16 07:37 97 100 04/04/16 06:00 72 04/04/16 04:00 98.8 62 15 113/59 96 115/63 04/04/16 04:00 62 04/04/16 04:00 100 04/04/16 03:48 97 100 04/04/16 02:00 61 04/04/16 00:44 96 100 04/04/16 00:00 63 04/04/16 00:00 100 04/04/16 00:00 100.0 63 15 104/55 96 119/91 04/03/16 22:00 65 04/03/16 21:54 97 100 04/03/16 20:00 99.5 62 15 101/55 97 132/75 04/03/16 20:00 62 04/03/16 20:00 100 04/03/16 19:43 97 100 04/03/16 18:00 66 04/03/16 16:00 100.2 65 15 117/68 97 130/72 04/03/16 16:00 65 04/03/16 16:00 100 04/03/16 14:29 95 100 04/03/16 14:00 71 04/03/16 12:00 99.1 66 15 96/52 96 114/61 04/03/16 12:00 70 04/03/16 12:00 100 04/03/16 10:00 70 04/03/16 04/03/16 04/04/16 15:00 23:00 07:00 Intake Total 2452 ml 2370 ml 1775 ml Output Total 2050 ml 1100 ml 1000 ml Balance 402 ml 1270 ml 775 ml IV Total 2032 ml 1868 ml 1447 ml Tube Feeding 300 ml 382 ml 328 ml Tube Irrigant 120 ml 120 ml Output Urine Total 1550 ml 500 ml 800 ml Stool Total 500 ml 600 ml 200 ml . Laboratory Tests Test 04/03/16 04/04/16 03:15 04:00 White Blood Count 20.9 TH/MM3 17.3 TH/MM3 Red Blood Count 5.18 MIL/MM3 4.82 MIL/MM3 Hemoglobin 14.2 GM/DL 13.1 GM/DL Hematocrit 44.4 % 41.0 % Mean Corpuscular Volume 85.6 FL 85.1 FL Mean Corpuscular Hemoglobin 27.5 PG 27.1 PG Mean Corpuscular Hemoglobin 32.1 % 31.9 % Concent Red Cell Distribution Width 15.2 % 14.6 % Platelet Count 271 TH/MM3 286 TH/MM3 Mean Platelet Volume 9.3 FL 9.6 FL Neutrophils (%) (Auto) 89.2 % 91.2 % Lymphocytes (%) (Auto) 1.7 % 2.3 % Monocytes (%) (Auto) 9.0 % 6.2 % Eosinophils (%) (Auto) 0.0 % 0.0 % Basophils (%) (Auto) 0.1 % 0.3 % Neutrophils # (Auto) 18.7 TH/MM3 15.8 TH/MM3 Lymphocytes # (Auto) 0.4 TH/MM3 0.4 TH/MM3 Monocytes # (Auto) 1.9 TH/MM3 1.1 TH/MM3 Eosinophils # (Auto) 0.0 TH/MM3 0.0 TH/MM3 Basophils # (Auto) 0.0 TH/MM3 0.0 TH/MM3 CBC Comment AUTO DIFF DIFF FINAL Differential Total Cells 100 Counted Neutrophils % (Manual) 86 % Band Neutrophils % 2 % Lymphocytes % 1 % Monocytes % 10 % Neutrophils # (Manual) 18.6 TH/MM3 Myelocytes 1 % Differential Comment FINAL DIFF MANUAL Platelet Estimate NORMAL Platelet Morphology Comment NORMAL Red Cell Morphology Comment NORMAL Laboratory Tests Test 04/03/16 04/04/16 03:15 04:00 Sodium Level 136 MEQ/L 139 MEQ/L Potassium Level 5.0 MEQ/L 4.3 MEQ/L Chloride Level 97 MEQ/L 102 MEQ/L Carbon Dioxide Level 34.0 MEQ/L 30.9 MEQ/L Anion Gap 5 MEQ/L 6 MEQ/L Blood Urea Nitrogen 38 MG/DL 29 MG/DL Creatinine 1.04 MG/DL 0.82 MG/DL Estimat Glomerular Filtration 76 ML/MIN 99 ML/MIN Rate Random Glucose 382 MG/DL 315 MG/DL Lactic Acid Level 1.6 mmol/L Calcium Level 8.8 MG/DL 8.5 MG/DL Phosphorus Level 4.1 MG/DL 2.7 MG/DL Magnesium Level 2.8 MG/DL 2.6 MG/DL Total Bilirubin 0.5 MG/DL 0.4 MG/DL Aspartate Amino Transf 19 U/L 8 U/L (AST/SGOT) Alanine Aminotransferase 47 U/L 33 U/L (ALT/SGPT) Alkaline Phosphatase 81 U/L 69 U/L Total Creatine Kinase 200 U/L 76 U/L Total Protein 7.6 GM/DL 6.6 GM/DL Albumin 3.0 GM/DL 2.7 GM/DL Microbiology Date/Time Procedure Status Source Growth 04/02/16 11:32 Aerobic Blood Culture - Preliminary Resulted Blood Line NO GROWTH IN 1 DAY 04/02/16 11:32 Anaerobic Blood Culture - Preliminary Resulted Blood Line NO GROWTH IN 1 DAY 04/02/16 11:40 Aerobic Blood Culture - Preliminary Resulted Blood Line NO GROWTH IN 1 DAY 04/02/16 11:40 Anaerobic Blood Culture - Preliminary Resulted Blood Line NO GROWTH IN 1 DAY 04/02/16 19:40 Gram Stain - Final Complete Sputum Endotracheal 04/02/16 19:40 Sputum Culture - Final Complete Staphylococcus Aureus Imaging s Chest X-Ray 04/04/16 06 Signed Impressions: Service Date/Time: Monday, April 04, 2016 04:44 - CONCLUSION: Worsening bilateral airspace opacities, especially left perihilar. Ubaldo Ortiz MD Chest X-Ray 04/03/16 06 Signed Impressions: Service Date/Time: Sunday, April 03, 2016 00:16 - CONCLUSION: Potential developing pneumonia in the right upper lobe. Bibasilar atelectasis modestly worse in the interim. Ubaldo Ortiz MD Chest X-Ray 04/03/16 06 Signed Impressions: Service Date/Time: Sunday, April 03, 2016 00:16 - CONCLUSION: Potential developing pneumonia in the right upper lobe. Bibasilar atelectasis modestly worse in the interim. Ubaldo Ortiz MD Chest X-Ray 04/02/16 0925 Signed Impressions: Service Date/Time: Saturday, April 02, 2016 09:22 - CONCLUSION: Place a right jugular catheter terminates superior vena cava with no pneumothorax. Bernard Hartman MD Chest X-Ray 04/01/16 0000 Signed Impressions: Service Date/Time: Friday, April 01, 2016 03:30 - CONCLUSION: No significant change has occurred. Henrry Andrea MD Abdomen X-Ray 03/31/16 0000 Signed Impressions: Service Date/Time: Thursday, March 31, 2016 09:58 - CONCLUSION: Benign abdomen. Rodrigo Martinez MD Chest X-Ray 03/30/16 0600 Signed Impressions: Service Date/Time: Wednesday, March 30, 2016 03:49 - CONCLUSION: No significant change has occurred. Henrry Andrea MD Physical Exam GENERAL: Morbidly obese, sedated and on paralytics, on the vent, He is on rotaprone bed, currently supine SKIN: Has some papular rash in his upper back FACE: Edematous, ET in place CHEST: Coarse BS bilaterally CARDIAC: regular, no murmur ABDOMEN: soft mildly distended, (+) BC : Becker in place MUSCULOSKELETAL: Extremities without clubbing, cyanosis. Has pedal edema and edema hands NEUROLOGICAL: Sedated and paralyzed on the vent. PSYCH: Unable to assess Assessment & Plan Remarks IMPRESSION Worsening leukocytosis, ?new infection - has been on adequate Abx for pathogens isolated - ?new HCAP, has increased O2 requirement though not much change on CXR ( though poor CXR due to his size) - UA ok - line placed 03/26 - no diarrhea - ?fungal, has been on steroids Pneumonia, C/S MSSA JACOB Respiratory failure, still with very high O requirement Morbid obesity Allergy to PCN, swelling Fevers, intermittent RECOMMENDATION Continue Levaquin and Diflucan Continue Flagyl for now Stop Zyvox since has no MRSA Follow C/S Follow CBC Monitor progress On rotaprone bed D/W Elisha Archer MD Apr 04, 2016 09:58
[2016-04-04] MEDS ORDERED: MISC INFORMATION XX ONE (10:00)
[2016-04-04] MEDS: FUROSEMIDE 20 MG/2 ML VIAL IV PUSH SCH ×2 (10:02→17:06)
[2016-04-04] MEDS: MIDAZOLAM 100 MG/ML INJ 100 ML IV SCH ×2 (10:18→20:11)
[2016-04-04] MEDS: INSULIN REGULAR (IV INFUSION) 100 UNITS in SODIUM CHLORIDE 0.9% INJ 99 ML IV SCH ×2 (10:42→20:13)
[2016-04-04] MEDS: fentaNYL 2,500 MCG/NS 250 ML IV SCH ×2 (11:42→20:11)
[2016-04-04] MEDS: LEVOFLOXACIN 750 MG PREMIX INJ 150 ML IV SCH (12:57)
[2016-04-04] MEDS: FLUCONAZOLE 400 MG PREMIX BAG 200 ML IV SCH (14:30)
[2016-04-04] MEDS: PANTOPRAZOLE SODIUM 40 MG VIAL IV PUSH SCH (17:06)
[2016-04-05] VITALS (20 sets, daily range): BP systolic 94–149; BP diastolic 51–81; PULSE 72–85; RESP 15; TEMP 98.4–99.7; O2SAT 90–95
[2016-04-05] MEDS: metroNIDAZOLE 500 MG INJ 100 ML IV SCH ×3 (00:21→17:12)
[2016-04-05] MEDS: PROPOFOL 1000 MG/100 ML IV SCH ×10 (00:22→23:47)
[2016-04-05] MEDS: RESP: ALBUTEROL 2.5 MG/IPRATROPIUM 0.5 MG NEB (SCH) NEB ×7 (00:33→23:34)
[2016-04-05] MEDS: EPOPROSTENOL NEB SOLUTION 50 NG/KG/MIN 100 ML NEB SCH ×6 (01:25→22:11)
[2016-04-05] MEDS: ENOXAPARIN SODIUM 40 MG/0.4 ML SYRINGE SQ SCH ×2 (05:03→17:11)
[2016-04-05] MEDS: METOCLOPRAMIDE HCL 10 MG/2 ML VIAL IV PUSH SCH ×3 (05:04→21:34)
[2016-04-05] MEDS: CISATRACURIUM INJ 100 MG in SODIUM CHLOR 0.9% 250 ML INJ 240 ML IV SCH ×4 (05:05→23:47)
[2016-04-05] MEDS: INSULIN REGULAR (IV INFUSION) 100 UNITS in SODIUM CHLORIDE 0.9% INJ 99 ML IV SCH ×2 (05:07→17:40)
--- NOTE | 2016-04-05 05:38 | RADRPT ---
EXAM DATE/TIME: 04/05/2016 03:25 [facility] COMPARISON: CHEST SINGLE AP, April 04, 2016, 4:44. INDICATIONS : Shortness of breath, possible pulmonary disease. MEDICAL HISTORY : None. SURGICAL HISTORY : None. ENCOUNTER: Subsequent ACUITY: 1 week PAIN SCORE: Non-responsive. LOCATION: Bilateral chest FINDINGS: Decreasing bibasilar consolidation but there is now some focal consolidation in the right midlung cou ld be residual or new. Small bilateral pleural effusions likely. No pneumothorax seen. Mild cardiomegaly is stable. Endotracheal tube tip is about 4 cm above the chanelle. Nasogastric tube courses into the stomach. Ther e is a right IJ central venous catheter with tip in the superior vena cava. CONCLUSION: 1. Improved basilar consolidation. Residual versus developing right midlung consolidation. 2. Small bilateral pleural effusions are suspected. 3. No change cardiomegaly or lines/tubes. Ubaldo Ortiz MD on April 05, 2016 at 5:35 Board Certified Radiologist. This report was verified electronically.
[2016-04-05 06:09] LABS: AUTOMATED NEUTROPHIL # 17.1 TH/MM3 (1.8-7.7); BASOPHIL % 0.1 % (0.0-2.0); HEMATOCRIT 39.7 % (39.0-51.0); HEMO FLAGS DIFF FINAL; LYMPH % 2.7 % (9.0-44.0); LYMPHOCYTE # 0.5 TH/MM3 (1.0-4.8); MEAN CELL VOLUME 85.6 FL (80.0-100.0); MEAN CORPUSCULAR HEMOGLOBIN 27.2 PG (27.0-34.0); MEAN CORPUSCULAR HGB CONC 31.8 % (32.0-36.0); MONO % 7.1 % (0.0-8.0); NEUT % 90.1 % (16.0-70.0); PLATELET COUNT 294 TH/MM3 (150-450); RED BLOOD COUNT 4.64 MIL/MM3 (4.50-5.90); RED CELL DISTRIBUTION WIDTH 15.1 % (11.6-17.2)
[2016-04-05] MEDS: MIDAZOLAM 100 MG/ML INJ 100 ML IV SCH ×2 (06:11→17:11)
[2016-04-05] MEDS: fentaNYL 2,500 MCG/NS 250 ML IV SCH ×2 (06:12→17:11)
[2016-04-05 06:35] LABS: ALKALINE PHOSPHATASE 60 U/L (45-117); ALT (GPT) 28 U/L (12-78); ANION GAP 10 MEQ/L (5-15); AST (GOT) 7 U/L (15-37); BICARBONATE 31.3 MEQ/L (21.0-32.0); BLOOD UREA NITROGEN 34 MG/DL (7-18); CHLORIDE 98 MEQ/L (98-107); GLOMERULAR FILTRATION RATE 102 ML/MIN (>89); MAGNESIUM 2.6 MG/DL (1.5-2.5); POTASSIUM 4.5 MEQ/L (3.5-5.1); SODIUM (NA) 139 MEQ/L (136-145); TOTAL BILIRUBIN ADULT 0.4 MG/DL (0.2-1.0)
[2016-04-05] MEDS: FUROSEMIDE 20 MG/2 ML VIAL IV PUSH SCH ×2 (07:56→17:13)
[2016-04-05] MEDS: LACTOBACILLUS ACIDOPHILUS TAB PO SCH ×3 (07:56→17:13)
[2016-04-05] MEDS: DOCUSATE SODIUM 100 MG/10 ML UDC PO SCH ×2 (07:57→20:04)
[2016-04-05] MEDS: SENNOSIDES SYRUP 8.8 MG/5 ML CUP PO/TUBE SCH ×2 (07:57→20:04)
[2016-04-05] MEDS: BETAMETHASONE/CLOTRIMAZOLE CREAM 15 GM TOPICAL SCH ×2 (07:58→20:07)
[2016-04-05] MEDS: CHLORHEXIDINE 0.12% (ORAL KIT) 15 ML CUP MT SCH ×2 (07:58→19:30)
[2016-04-05] MEDS: ARTIFICIAL TEARS OPTH OINT 3.5 APPLIC/3.5 GM TUBO EACH EYE SCH ×2 (07:58→20:07)
[2016-04-05] MEDS: methylPREDNISolone SOD SUCC 40 MG/1 ML VIAL IV PUSH SCH ×2 (07:58→20:04)
[2016-04-05] MEDS: SODIUM CHLORIDE 0.9% FLUSH 5 ML FLUSH IVF SCH (07:59)
[2016-04-05] MEDS: BENEPROTEIN POWDER 1 PACK G-TUBE SCH ×3 (09:00→17:45)
--- NOTE | 2016-04-05 10:07 | HHI.CCPN ---
Subjective Remarks/Hospital Course Patient is a 50 years old obese male with past medical history significant for undiagnosed sleep apnea, super morbid obesity, type 2 diabetes was brought to the emergency department on 03/24/16 after feeling light headed and dizzy. On presentation here was found to be hypoxemic and ABG showed severe hypoxemia and hypercarbia. For a recent driving physical he was diagnosed with low oxygen saturations. Patient's oxygen saturation the ED was in the low 80s, which was confirmed on ABG with a oxygen saturation of 78% and PO2 of 46. CTA negative for PE. Patient was initiated on BiPAP therapy with consult to pulmonary Dr. Crane. His oxygenation improved but he continued to be hypercapnic. Today a.m. on nasal cannula his pH was 7.26 and PCO2 was increased at 99, patient was somnolent was placed back on BiPAP and repeat ABG at noon showed pH 7.26 PCO2 98 and pO2 70. This was on 16 BiPAP with FiO2 50%. Critical care was consulted. On my evaluation patient is somnolent but wakes up easily. I reduced the PEEP on BiPAP from 12-7 to facilitate better ventilation. A repeat ANG showed only minimal improvement, so decision made to intubate patient. Glidescope with #4 blade was used. Only propofol was used for induction. Initially I had a Grade 1-2 view, but I was unable to pass tube through the vocal cord to trachea in two attempts. Tube slipped out of Laryngeal opening both times. Dr Garrett intubated patient after NM paralysis with succinylcholine. Post intubation ABG showed improvement in hypercapnia and oxygenation. 03/27/16: Patient remains intubated heavily sedated with propofol and fentanyl. Remained severely hypoxemic on 100% FiO2, PEEP12, chest x-ray shows bibasilar infiltrates. Flagyl added. We'll give 1 dose of vancomycin-Adjust antibiotics according to cultures. Patient super morbid obesity may prevent Prone therapy 03/28: Remains hypoxic but ABG shows marginal improvement in oxygenation. WBC increasing 20.1 today. Start vancomycin scheduled. 03/29: Oxygenation is slightly improved. FiO2 reduced to 50% today. Chest x- ray remains unchanged. On sedation hold patient does wake up and follow commands. WBC count remains at 20 03/30 No acute events overnight. Sedated with Diprivan and Fentanyl. Had T: 100.1 at 4 am. WBC trending down 15.9 today from 20. 03/31 Patient remains sedated with Diprivan, Fentanyl and intubated. Tmax 100.1. Patient required increase O2 overnight now on ACV with PEEP: 12 and FIO2 70%. 04/01: Tmax 99.7. No bowel movement since admission. Patient has bowel sounds. Arousable on the ventilator. We'll attempt prone the patient paralyzed to increase oxygenation status. 04/02: MAXIMUM TEMPERATURE 100.9. Currently 97.7. 5 10 cc stools overnight. Placed on Roto prone yesterday. Saturations currently 94% on Flolan. Diuresed overnight. Creatinine still within normal limits. 04/03: Tmax 101. Currently 99.1. Positive BM. Did not tolerate not being unprone this AM. Saturations much improved prone. Tolerating tube feeding. Subjective 04/04: Tmax 100.8. Currently 98.8. +2 L past 24 hours. Attempt to on prone today. Positive BM. C. difficile negative. Remains paralyzed. 04/05: Remains sedated, orally intubated on neuromuscular blockade on mechanical ventilation. Remains on Rota prone bed. On insulin drip. Objective Vital Signs Date Time Temp Pulse Resp B/P Pulse Ox O2 Delivery O2 Flow Rate FiO2 04/05/16 08:00 100 04/05/16 08:00 79 04/05/16 08:00 99.5 15 103/57 94 131/62 Intake and Output 04/04/16 04/04/16 04/05/16 08:00 16:00 00:00 Intake Total 1775 ml 1778 ml 1668 ml Output Total 1000.0 ml 2125 ml 2700 ml Balance 775.0 ml -347 ml -1032 ml Result Diagram: 04/05/16 0500 04/05/16 0500 Other Results Microbiology Date/Time Procedure Status Source Growth 04/02/16 19:40 Gram Stain - Final Complete Sputum Endotracheal 04/02/16 19:40 Sputum Culture - Final Complete Staphylococcus Aureus Imaging Last 24 hours Impressions Chest X-Ray 04/05/16 0600 Signed Impressions: Service Date/Time: April 03:25 - CONCLUSION: 1. Improved basilar consolidation. Residual versus developing right midlung consolidation. 2. Small bilateral pleural effusions are suspected. 3. No change cardiomegaly or lines/tubes. Ubaldo Ortiz MD Last Impressions Chest X-Ray 04/04/16 0600 Signed Impressions: Service Date/Time: Monday, April 04, 2016 04:44 - CONCLUSION: Worsening bilateral airspace opacities, especially left perihilar. Ubaldo Ortiz MD Abdomen X-Ray 03/31/16 0000 Signed Impressions: Service Date/Time: Thursday, March 31, 2016 09:58 - CONCLUSION: Benign abdomen. Rodrigo Martinez MD Chest CT 03/28/16 0836 Signed Impressions: Service Date/Time: Monday, March 28, 2016 09:57 - CONCLUSION: Development areas of air bronchograms and consolidation more prominent in the right and left posterior basilar segments of the lower lobes. ET tube above the chanelle. Bernard Hartman MD CT Angiography 03/24/16 1121 Signed Impressions: Service Date/Time: Thursday, March 24, 2016 12:47 - CONCLUSION: 1. There is respiratory motion artifact but no PE is identified through most of the segmental level pulmonary arteries. 2. Mildly enlarged main pulmonary artery may indicate pulmonary arterial hypertension. 3. 11 mm left lower lobe noncalcified pulmonary nodule. Suggest correlation with any prior imaging studies that could confirm longer-term stability. If none are available consider short-term followup noncontrast chest CT in approximately 3 months. Ubaldo Rodas MD Objective Remarks GENERAL: 50-year-old male, critically ill. Orally intubated on mechanical ventilation, on sedation and neuromuscular blockade SKIN: Evidence of seborrheic dermatitis of the face HEAD: Atraumatic. Normocephalic. EYES: Pupils equal round and slightly reactive about 3 millimeters bilaterally. ENT: NG tube in place. NECK: Very large neck. Trachea midline. Right IJ clean dry and intact CARDIOVASCULAR: Distant heart sounds. RRR. S1, S2. No S4. Without murmur RESPIRATORY: Orally intubated on mechanical ventilation, Breath sounds equal bilaterally. Diminished breath sounds due to body habitus. GASTROINTESTINAL: Abdomen soft, obese, nontender. Severe central obesity MUSCULOSKELETAL: Extremities with trace to 1+ nonpitting bilateral lower extremity edema. NEUROLOGICAL: Intubated and paralyzed on the ventilator. Urinary Catheter: Yes Assessment to: Continue Date of Insertion: Apr 02, 2016 Line: Central Venous Catheter Side: Right Location: Internal, Jugular A/P Assessment and Plan NEURO/Psych: -On propofol and 50 mcg/kg per minute, Versed drip at 10 mg an hour and fentanyl drip at 250 g an hour for sedation/analgesia while intubated Nimbex drip currently at 3 mcg/kg per minute to maintain a [id number] 2/4 Daily sedation vacation on hold secondary to paralytic/oxygenation status. Acetaminophen for fever Paralyzed with Nimbex [id number] 2 out of 4. BIS 40-60 RESP: Acute respiratory failure Obstructive sleep apnea Obesity hypoventilation syndrome Staph aureus pneumonia Left lower lobe pulmonary nodule of 11 millimeters - follow up CT chest 3 months without contrast recommended Pulmonary edema PRVC 15/around 570/1.65/15/100 Ventilator bundle Bronchodilator therapy every 4 hours and as needed -Emergently intubated and placed on mechanical ventilation 03/26/16 Continue Flolan today at 50 ng/kg per minute for oxygenation. -Solu-Medrol 40 mg IV q12 CTA chest revealed no PE. Possible pulmonary arterial hypertension. 11 mm pulmonary nodule. Bilateral lower lobe air bronchograms Paralyzed with Nimbex drip 04/01 and prone patient. CV: -Monitor HR and BP keep MAP>65mmHg -2-D echo 03/26 EF 60%. No regional wall motion abnormality. Mild . Mild MR/ TR Currently not requiring any anti-hypertensives and or vasopressors GI: Constipation Hypoalbuminemia -Tube feeds with Glucerna 1.5@45ml/hr, - IV Protonix 40 mg IV daily -Colace, senna for bowel regimen /FEN: Hyper-magnesium -Monitor renal function, I/O's, electrolytes replacement per protocol. -On Lasix 20mg BID ID/DERM: Staph aureus pneumonia Infectious disease consultation/Dr. Painter. Appreciate recommendations. -Continue with abx (Zyvox, Levaquin day #6 and Flagyl since 03/26.) Continue Diflucan 40 mg IV day #6. Discontinued vancomycin and aztreonam 03/31 - Blood cultures 04/02 - no growth - Sputum 04/02 - reincubate -03/30 sputum culture with staph aureus - 03/30 - urine - no growth - 03/30 - blood cultures 2 - negative -03/27 Sputum culture with staph aureus -03/26 03/07 bottles coag negative staph probable contamination HEME: Leukocytosis -Monitor CBC, CMP, coags ENDO: Diabetes mellitus Hyperglycemia critical illness Currently on insulin drip algorithm #4. Add Levemir 60 units subcutaneous every 12 hourly (04/05) On metformin 500 mg by mouth twice a day at home. This has been held MSK: Morbid obesity Weight loss encouraged. PT evaluate and treat PROPH: -Bilateral lower extremity SCDs. IV Protonix 40 mg daily. Lovenox 40 mg sq BID LINES: -Right IJ CVL in right radial art line 04/02- present -LIJ central line and L radial art line in place 03/26 - 04/02. Critical Care: The total critical care time was 45 minutes. Time to perform other separately billable procedures was not included in the critical care time. Aditya Monge MD Apr 05, 2016 10:07
[2016-04-05] MEDS: INSULIN DETEMIR 100 UNITS/ML VIAL SQ SCH ×2 (12:07→20:05)
--- NOTE | 2016-04-05 13:50 | HHI.IDPN ---
Subjective Subjective Remarks Notes reviewed D/W RN Temps better Off pressors Doing 8 hours\prone, 4 hours supine on rotaprone bed Multiple sedation and nimbex FiO2 at 100% WBC slightly higher CXR better Diuresing C diff negative Antibiotics Levaquin Flagyl Diflucan Lines TLC - 04/02 Past Medical History Reviewed Allergies: Coded Allergies: Penicillin (Verified Allergy, Severe, Swelling, 03/24/16) Tetanus Toxoid (Verified Allergy, Unknown, Swelling, 03/24/16) Objective . Vital Signs Date Time Temp Pulse Resp B/P Pulse Ox O2 Delivery O2 Flow Rate FiO2 04/05/16 12:00 77 04/05/16 12:00 99.3 77 15 111/59 93 114/76 04/05/16 12:00 100 04/05/16 11:07 94 100 04/05/16 10:00 75 04/05/16 08:00 100 04/05/16 08:00 79 04/05/16 08:00 99.5 78 15 103/57 94 131/62 04/05/16 07:38 95 100 04/05/16 06:00 77 04/05/16 04:00 100 04/05/16 04:00 99.7 78 15 118/70 95 125/57 04/05/16 04:00 78 04/05/16 03:45 95 100 04/05/16 02:00 85 04/05/16 00:36 92 100 04/05/16 00:00 99.1 72 15 126/69 91 149/81 04/05/16 00:00 72 04/05/16 00:00 100 04/04/16 22:00 79 04/04/16 21:13 96 100 04/04/16 20:00 100 04/04/16 20:00 76 04/04/16 20:00 99.4 76 15 119/67 96 109/62 04/04/16 18:00 78 04/04/16 16:00 99.1 80 15 106/58 94 105/68 04/04/16 16:00 80 04/04/16 16:00 100 04/04/16 14:53 95 100 04/04/16 14:00 87 04/04/16 04/04/16 04/05/16 15:00 23:00 07:00 Intake Total 1778 ml 1668 ml 1532 ml Output Total 2125 ml 2700 ml 1150 ml Balance -347 ml -1032 ml 382 ml IV Total 1505 ml 1357 ml 1188 ml Tube Feeding 273 ml 311 ml 344 ml Output Urine Total 2025 ml 2500 ml 1050 ml Stool Total 100 ml 200 ml 100 ml Tube Feeding Residual Discard 0 ml . Laboratory Tests Test 04/04/16 04/05/16 04:00 05:00 White Blood Count 17.3 TH/MM3 19.0 TH/MM3 Red Blood Count 4.82 MIL/MM3 4.64 MIL/MM3 Hemoglobin 13.1 GM/DL 12.6 GM/DL Hematocrit 41.0 % 39.7 % Mean Corpuscular Volume 85.1 FL 85.6 FL Mean Corpuscular Hemoglobin 27.1 PG 27.2 PG Mean Corpuscular Hemoglobin 31.9 % 31.8 % Concent Red Cell Distribution Width 14.6 % 15.1 % Platelet Count 286 TH/MM3 294 TH/MM3 Mean Platelet Volume 9.6 FL 9.6 FL Neutrophils (%) (Auto) 91.2 % 90.1 % Lymphocytes (%) (Auto) 2.3 % 2.7 % Monocytes (%) (Auto) 6.2 % 7.1 % Eosinophils (%) (Auto) 0.0 % 0.0 % Basophils (%) (Auto) 0.3 % 0.1 % Neutrophils # (Auto) 15.8 TH/MM3 17.1 TH/MM3 Lymphocytes # (Auto) 0.4 TH/MM3 0.5 TH/MM3 Monocytes # (Auto) 1.1 TH/MM3 1.4 TH/MM3 Eosinophils # (Auto) 0.0 TH/MM3 0.0 TH/MM3 Basophils # (Auto) 0.0 TH/MM3 0.0 TH/MM3 CBC Comment DIFF FINAL DIFF FINAL Differential Comment Laboratory Tests Test 04/04/16 04/05/16 04:00 05:00 Sodium Level 139 MEQ/L 139 MEQ/L Potassium Level 4.3 MEQ/L 4.5 MEQ/L Chloride Level 102 MEQ/L 98 MEQ/L Carbon Dioxide Level 30.9 MEQ/L 31.3 MEQ/L Anion Gap 6 MEQ/L 10 MEQ/L Blood Urea Nitrogen 29 MG/DL 34 MG/DL Creatinine 0.82 MG/DL 0.80 MG/DL Estimat Glomerular Filtration 99 ML/MIN 102 ML/MIN Rate Random Glucose 315 MG/DL 223 MG/DL Calcium Level 8.5 MG/DL 8.7 MG/DL Phosphorus Level 2.7 MG/DL 3.4 MG/DL Magnesium Level 2.6 MG/DL 2.6 MG/DL Total Bilirubin 0.4 MG/DL 0.4 MG/DL Aspartate Amino Transf 8 U/L 7 U/L (AST/SGOT) Alanine Aminotransferase 33 U/L 28 U/L (ALT/SGPT) Alkaline Phosphatase 69 U/L 60 U/L Total Creatine Kinase 76 U/L Total Protein 6.6 GM/DL 6.5 GM/DL Albumin 2.7 GM/DL 2.6 GM/DL Microbiology Date/Time Procedure Status Source Growth 04/02/16 19:40 Gram Stain - Final Complete Sputum Endotracheal 04/02/16 19:40 Sputum Culture - Final Complete Staphylococcus Aureus Imaging Last 48 hours Impressions Chest X-Ray 04/05/16599 Signed Impressions: Service Date/Time: April 03:25 - CONCLUSION: 1. Improved basilar consolidation. Residual versus developing right midlung consolidation. 2. Small bilateral pleural effusions are suspected. 3. No change cardiomegaly or lines/tubes. Ubaldo Ortiz MD Chest X-Ray 04/04/16599 Signed Impressions: Service Date/Time: Monday, April 04, 2016 04:44 - CONCLUSION: Worsening bilateral airspace opacities, especially left perihilar. Ubaldo Ortiz MD Chest X-Ray 04/04/16599 Signed Impressions: Service Date/Time: Monday, April 04, 2016 04:44 - CONCLUSION: Worsening bilateral airspace opacities, especially left perihilar. Ubaldo Ortiz MD Chest X-Ray 04/03/16599 Signed Impressions: Service Date/Time: Sunday, April 03, 2016 00:16 - CONCLUSION: Potential developing pneumonia in the right upper lobe. Bibasilar atelectasis modestly worse in the interim. Ubaldo Ortiz MD Chest X-Ray 04/03/16599 Signed Impressions: Service Date/Time: Sunday, April 03, 2016 00:16 - CONCLUSION: Potential developing pneumonia in the right upper lobe. Bibasilar atelectasis modestly worse in the interim. Ubaldo Ortiz MD Chest X-Ray 04/02/16 0925 Signed Impressions: Service Date/Time: Saturday, April 02, 2016 09:22 - CONCLUSION: Place a right jugular catheter terminates superior vena cava with no pneumothorax. Bernard Hartman MD Chest X-Ray 04/01/16 0000 Signed Impressions: Service Date/Time: Friday, April 01, 2016 03:30 - CONCLUSION: No significant change has occurred. Henrry Andrea MD Abdomen X-Ray 03/31/16 0000 Signed Impressions: Service Date/Time: Thursday, March 31, 2016 09:58 - CONCLUSION: Benign abdomen. Rodrigo Martinez MD Chest X-Ray 03/30/16 0600 Signed Impressions: Service Date/Time: Wednesday, March 30, 2016 03:49 - CONCLUSION: No significant change has occurred. Henrry Andrea MD Physical Exam GENERAL: Morbidly obese, sedated and on paralytics, on the vent, He is on rotaprone bed, currently supine SKIN: Has some papular rash in his upper back FACE: Edematous, ET in place CHEST: Coarse BS bilaterally CARDIAC: regular, no murmur ABDOMEN: soft mildly distended, (+) BC : Becker in place MUSCULOSKELETAL: Extremities without clubbing, cyanosis. Has pedal edema and edema hands NEUROLOGICAL: Sedated and paralyzed on the vent. PSYCH: Unable to assess Assessment & Plan Remarks IMPRESSION Worsening leukocytosis, ?new infection - has been on adequate Abx for pathogens isolated - ?new HCAP, has increased O2 requirement though not much change on CXR ( though poor CXR due to his size) - UA ok - line placed 03/26 - no diarrhea - ?fungal, has been on steroids Pneumonia, C/S MSSA JACOB Respiratory failure, still with very high O requirement Morbid obesity Allergy to PCN, swelling Fevers, intermittent RECOMMENDATION Continue Levaquin and Diflucan Continue Flagyl for now Follow C/S Follow CBC Monitor progress On rotaprone bed D/W Elisha Archer MD Apr 05, 2016 13:50
[2016-04-05] MEDS: LEVOFLOXACIN 750 MG PREMIX INJ 150 ML IV SCH (14:23)
[2016-04-05] MEDS: PANTOPRAZOLE SODIUM 40 MG VIAL IV PUSH SCH (17:12)
[2016-04-05] MEDS: FLUCONAZOLE 400 MG PREMIX BAG 200 ML IV SCH (17:40)
[2016-04-06] VITALS (17 sets, daily range): BP systolic 96–142; BP diastolic 49–84; PULSE 65–81; RESP 15; TEMP 98.1–99.5; O2SAT 91–95
[2016-04-06] MEDS: metroNIDAZOLE 500 MG INJ 100 ML IV SCH ×4 (00:20→23:00)
[2016-04-06] MEDS: PROPOFOL 1000 MG/100 ML IV SCH ×9 (01:46→23:00)
[2016-04-06] MEDS: INSULIN REGULAR (IV INFUSION) 100 UNITS in SODIUM CHLORIDE 0.9% INJ 99 ML IV SCH ×2 (02:40→18:18)
[2016-04-06] MEDS: RESP: ALBUTEROL 2.5 MG/IPRATROPIUM 0.5 MG NEB (SCH) NEB ×5 (03:18→20:04)
[2016-04-06] MEDS: MIDAZOLAM 100 MG/ML INJ 100 ML IV SCH ×3 (04:21→21:11)
[2016-04-06] MEDS: fentaNYL 2,500 MCG/NS 250 ML IV SCH ×3 (04:21→21:11)
[2016-04-06] MEDS: EPOPROSTENOL NEB SOLUTION 50 NG/KG/MIN 100 ML NEB SCH ×4 (05:35→17:56)
[2016-04-06] MEDS: CISATRACURIUM INJ 100 MG in SODIUM CHLOR 0.9% 250 ML INJ 240 ML IV SCH ×4 (05:36→22:37)
[2016-04-06] MEDS: METOCLOPRAMIDE HCL 10 MG/2 ML VIAL IV PUSH SCH ×3 (05:36→21:11)
[2016-04-06] MEDS: ENOXAPARIN SODIUM 40 MG/0.4 ML SYRINGE SQ SCH ×2 (05:36→17:34)
[2016-04-06 05:51] LABS: ALT (GPT) 28 U/L (12-78); ANION GAP 6 MEQ/L (5-15); AST (GOT) 11 U/L (15-37); BICARBONATE 34.3 MEQ/L (21.0-32.0); BLOOD UREA NITROGEN 38 MG/DL (7-18); CHLORIDE 101 MEQ/L (98-107); GLOMERULAR FILTRATION RATE 109 ML/MIN (>89); POTASSIUM 4.4 MEQ/L (3.5-5.1); SODIUM (NA) 141 MEQ/L (136-145)
[2016-04-06 05:53] LABS: ALKALINE PHOSPHATASE 56 U/L (45-117); TOTAL BILIRUBIN ADULT 0.4 MG/DL (0.2-1.0)
[2016-04-06 06:27] LABS: AUTOMATED NEUTROPHIL # 18.9 TH/MM3 (1.8-7.7); BASOPHIL % 0.2 % (0.0-2.0); HEMATOCRIT 40.3 % (39.0-51.0); LYMPH % 2.4 % (9.0-44.0); LYMPHOCYTE # 0.5 TH/MM3 (1.0-4.8); MEAN CELL VOLUME 84.2 FL (80.0-100.0); MEAN CORPUSCULAR HEMOGLOBIN 27.1 PG (27.0-34.0); MEAN CORPUSCULAR HGB CONC 32.2 % (32.0-36.0); MONO % 5.9 % (0.0-8.0); NEUT % 91.5 % (16.0-70.0); PLATELET COUNT 299 TH/MM3 (150-450); RED BLOOD COUNT 4.79 MIL/MM3 (4.50-5.90); WHITE BLOOD COUNT 20.6 TH/MM3 (4.0-11.0)
[2016-04-06 06:30] LABS: HEMO FLAGS AUTO DIFF
[2016-04-06 07:06] LABS: BANDS 2 % (0-6); POLYS (SEG NEUTROPHILS) 90 % (16-70); WBC DIFF SAMPLE 100
[2016-04-06 07:07] LABS: PLATELET ESTIMATE SMEAR NORMAL (NORMAL); PLATELET MORPHOLOGY NORMAL (NORMAL); SCAN/DIFF FINAL DIFF MANUAL
[2016-04-06] MEDS: CHLORHEXIDINE 0.12% (ORAL KIT) 15 ML CUP MT SCH ×2 (08:01→20:10)
[2016-04-06] MEDS: DOCUSATE SODIUM 100 MG/10 ML UDC PO SCH ×2 (08:01→20:28)
[2016-04-06] MEDS: SENNOSIDES SYRUP 8.8 MG/5 ML CUP PO/TUBE SCH ×2 (08:01→21:11)
[2016-04-06] MEDS: INSULIN DETEMIR 100 UNITS/ML VIAL SQ SCH ×2 (08:02→20:28)
[2016-04-06] MEDS: FUROSEMIDE 20 MG/2 ML VIAL IV PUSH SCH ×2 (08:02→17:34)
[2016-04-06] MEDS: methylPREDNISolone SOD SUCC 40 MG/1 ML VIAL IV PUSH SCH ×2 (08:02→20:28)
[2016-04-06] MEDS: SODIUM CHLORIDE 0.9% FLUSH 5 ML FLUSH IVF SCH (08:02)
[2016-04-06] MEDS: BENEPROTEIN POWDER 1 PACK G-TUBE SCH ×3 (08:03→17:34)
[2016-04-06] MEDS: ARTIFICIAL TEARS OPTH OINT 3.5 APPLIC/3.5 GM TUBO EACH EYE SCH ×2 (08:03→20:29)
[2016-04-06] MEDS: BETAMETHASONE/CLOTRIMAZOLE CREAM 15 GM TOPICAL SCH ×2 (08:03→20:29)
[2016-04-06] MEDS: LACTOBACILLUS ACIDOPHILUS TAB PO SCH ×3 (08:05→17:34)
--- NOTE | 2016-04-06 09:47 | HHI.IDPN ---
Subjective Subjective Remarks Notes reviewed D/W RN Temps ok Doing 8 hours\prone, 4 hours supine on rotaprone bed Multiple sedation and nimbex FiO2 at 100% WBC slightly higher CXR better Diuresing C diff negative Antibiotics Levaquin Flagyl Diflucan Lines TLC - 04/02 Past Medical History Reviewed Allergies: Coded Allergies: Penicillin (Verified Allergy, Severe, Swelling, 03/24/16) Tetanus Toxoid (Verified Allergy, Unknown, Swelling, 03/24/16) Objective . Vital Signs Date Time Temp Pulse Resp B/P Pulse Ox O2 Delivery O2 Flow Rate FiO2 04/06/16 08:00 98.3 67 15 124/64 95 Arterial Line 04/06/16 08:00 100 04/06/16 08:00 68 04/06/16 07:28 95 100 04/06/16 06:00 65 04/06/16 04:00 100 04/06/16 04:00 73 04/06/16 04:00 98.9 73 15 142/80 94 128/64 04/06/16 03:30 92 100 04/06/16 02:00 79 04/06/16 00:00 98.6 78 15 110/59 93 141/84 04/06/16 00:00 78 04/06/16 00:00 100 04/05/16 23:35 93 100 04/05/16 22:00 82 04/05/16 21:35 90 100 04/05/16 20:00 98.4 79 15 94/51 92 95/68 04/05/16 20:00 79 04/05/16 20:00 100 04/05/16 19:46 92 100 04/05/16 18:00 78 04/05/16 16:49 94 100 04/05/16 16:00 79 04/05/16 16:00 99.1 76 15 112/59 92 117/66 04/05/16 16:00 100 04/05/16 14:00 79 04/05/16 12:00 77 04/05/16 12:00 99.3 77 15 111/59 93 114/76 04/05/16 12:00 100 04/05/16 11:07 94 100 04/05/16 10:00 75 04/05/16 04/05/16 04/06/16 15:00 23:00 07:00 Intake Total 1984 ml 1885 ml 1543 ml Output Total 3000 ml 1275 ml 1400 ml Balance -1016 ml 610 ml 143 ml IV Total 1356 ml 1557 ml 1238 ml Tube Feeding 388 ml 268 ml 305 ml Tube Irrigant 60 ml Other 240 ml Output Urine Total 2800 ml 1175 ml 1200 ml Stool Total 200 ml 100 ml 200 ml . Laboratory Tests Test 04/05/16 04/06/16 05:00 04:40 White Blood Count 19.0 TH/MM3 20.6 TH/MM3 Red Blood Count 4.64 MIL/MM3 4.79 MIL/MM3 Hemoglobin 12.6 GM/DL 13.0 GM/DL Hematocrit 39.7 % 40.3 % Mean Corpuscular Volume 85.6 FL 84.2 FL Mean Corpuscular Hemoglobin 27.2 PG 27.1 PG Mean Corpuscular Hemoglobin 31.8 % 32.2 % Concent Red Cell Distribution Width 15.1 % 15.0 % Platelet Count 294 TH/MM3 299 TH/MM3 Mean Platelet Volume 9.6 FL 9.6 FL Neutrophils (%) (Auto) 90.1 % 91.5 % Lymphocytes (%) (Auto) 2.7 % 2.4 % Monocytes (%) (Auto) 7.1 % 5.9 % Eosinophils (%) (Auto) 0.0 % 0.0 % Basophils (%) (Auto) 0.1 % 0.2 % Neutrophils # (Auto) 17.1 TH/MM3 18.9 TH/MM3 Lymphocytes # (Auto) 0.5 TH/MM3 0.5 TH/MM3 Monocytes # (Auto) 1.4 TH/MM3 1.2 TH/MM3 Eosinophils # (Auto) 0.0 TH/MM3 0.0 TH/MM3 Basophils # (Auto) 0.0 TH/MM3 0.0 TH/MM3 CBC Comment DIFF FINAL AUTO DIFF Differential Comment FINAL DIFF MANUAL Differential Total Cells 100 Counted Neutrophils % (Manual) 90 % Band Neutrophils % 2 % Lymphocytes % 2 % Monocytes % 6 % Neutrophils # (Manual) 19.0 TH/MM3 Platelet Estimate NORMAL Platelet Morphology Comment NORMAL Red Cell Morphology Comment NORMAL Laboratory Tests Test 04/05/16 04/06/16 05:00 04:40 Sodium Level 139 MEQ/L 141 MEQ/L Potassium Level 4.5 MEQ/L 4.4 MEQ/L Chloride Level 98 MEQ/L 101 MEQ/L Carbon Dioxide Level 31.3 MEQ/L 34.3 MEQ/L Anion Gap 10 MEQ/L 6 MEQ/L Blood Urea Nitrogen 34 MG/DL 38 MG/DL Creatinine 0.80 MG/DL 0.76 MG/DL Estimat Glomerular Filtration 102 ML/MIN 109 ML/MIN Rate Random Glucose 223 MG/DL 168 MG/DL Calcium Level 8.7 MG/DL 8.8 MG/DL Phosphorus Level 3.4 MG/DL Magnesium Level 2.6 MG/DL Total Bilirubin 0.4 MG/DL 0.4 MG/DL Aspartate Amino Transf 7 U/L 11 U/L (AST/SGOT) Alanine Aminotransferase 28 U/L 28 U/L (ALT/SGPT) Alkaline Phosphatase 60 U/L 56 U/L Total Protein 6.5 GM/DL 6.7 GM/DL Albumin 2.6 GM/DL 2.7 GM/DL Imaging Last 48 hours Impressions Chest X-Ray 04/05/16599 Signed Impressions: Service Date/Time: April 03:25 - CONCLUSION: 1. Improved basilar consolidation. Residual versus developing right midlung consolidation. 2. Small bilateral pleural effusions are suspected. 3. No change cardiomegaly or lines/tubes. Ubaldo Ortiz MD Chest X-Ray 04/04/16599 Signed Impressions: Service Date/Time: Monday, April 04, 2016 04:44 - CONCLUSION: Worsening bilateral airspace opacities, especially left perihilar. Ubaldo Ortiz MD Chest X-Ray 04/04/16599 Signed Impressions: Service Date/Time: Monday, April 04, 2016 04:44 - CONCLUSION: Worsening bilateral airspace opacities, especially left perihilar. Ubaldo Ortiz MD Chest X-Ray 04/03/16599 Signed Impressions: Service Date/Time: Sunday, April 03, 2016 00:16 - CONCLUSION: Potential developing pneumonia in the right upper lobe. Bibasilar atelectasis modestly worse in the interim. Ubaldo Ortiz MD Chest X-Ray 04/03/16599 Signed Impressions: Service Date/Time: Sunday, April 03, 2016 00:16 - CONCLUSION: Potential developing pneumonia in the right upper lobe. Bibasilar atelectasis modestly worse in the interim. Ubaldo Ortiz MD Chest X-Ray 04/02/16 0925 Signed Impressions: Service Date/Time: Saturday, April 02, 2016 09:22 - CONCLUSION: Place a right jugular catheter terminates superior vena cava with no pneumothorax. Bernard Hartman MD Chest X-Ray 04/01/16 0000 Signed Impressions: Service Date/Time: Friday, April 01, 2016 03:30 - CONCLUSION: No significant change has occurred. Henrry Andrea MD Abdomen X-Ray 03/31/16 0000 Signed Impressions: Service Date/Time: Thursday, March 31, 2016 09:58 - CONCLUSION: Benign abdomen. Rodrigo Martinez MD Chest X-Ray 03/30/16 0600 Signed Impressions: Service Date/Time: Wednesday, March 30, 2016 03:49 - CONCLUSION: No significant change has occurred. Henrry Andrea MD Physical Exam GENERAL: Morbidly obese, sedated and on paralytics, on the vent, He is on rotaprone bed, currently supine SKIN: Has some papular rash in his upper back FACE: Edematous, ET in place CHEST: Coarse BS bilaterally CARDIAC: regular, no murmur ABDOMEN: soft, obese, (+) BS : Becker in place MUSCULOSKELETAL: Extremities without clubbing, cyanosis. Has pedal edema and edema hands NEUROLOGICAL: Sedated and paralyzed on the vent. PSYCH: Unable to assess Assessment & Plan Remarks IMPRESSION Worsening leukocytosis, ?new infection - has been on adequate Abx for pathogens isolated - ?new HCAP, has increased O2 requirement though not much change on CXR ( though poor CXR due to his size) - UA ok - line placed 03/26 - no diarrhea - ?fungal, has been on steroids Pneumonia, C/S MSSA JACOB Respiratory failure, still with very high O requirement Morbid obesity Allergy to PCN, swelling Fevers, intermittent RECOMMENDATION Continue Levaquin and Diflucan Continue Flagyl for now Follow C/S Follow CBC Monitor progress On rotaprone bed D/W Elisha Archer MD Apr 06, 2016 09:47
--- NOTE | 2016-04-06 14:31 | HHI.CCPN ---
Subjective Remarks/Hospital Course Patient is a 50 years old obese male with past medical history significant for undiagnosed sleep apnea, super morbid obesity, type 2 diabetes was brought to the emergency department on 03/24/16 after feeling light headed and dizzy. On presentation here was found to be hypoxemic and ABG showed severe hypoxemia and hypercarbia. For a recent driving physical he was diagnosed with low oxygen saturations. Patient's oxygen saturation the ED was in the low 80s, which was confirmed on ABG with a oxygen saturation of 78% and PO2 of 46. CTA negative for PE. Patient was initiated on BiPAP therapy with consult to pulmonary Dr. Crane. His oxygenation improved but he continued to be hypercapnic. Today a.m. on nasal cannula his pH was 7.26 and PCO2 was increased at 99, patient was somnolent was placed back on BiPAP and repeat ABG at noon showed pH 7.26 PCO2 98 and pO2 70. This was on 16 BiPAP with FiO2 50%. Critical care was consulted. On my evaluation patient is somnolent but wakes up easily. I reduced the PEEP on BiPAP from 12-7 to facilitate better ventilation. A repeat ANG showed only minimal improvement, so decision made to intubate patient. Glidescope with #4 blade was used. Only propofol was used for induction. Initially I had a Grade 1-2 view, but I was unable to pass tube through the vocal cord to trachea in two attempts. Tube slipped out of Laryngeal opening both times. Dr Garrett intubated patient after NM paralysis with succinylcholine. Post intubation ABG showed improvement in hypercapnia and oxygenation. 03/27/16: Patient remains intubated heavily sedated with propofol and fentanyl. Remained severely hypoxemic on 100% FiO2, PEEP12, chest x-ray shows bibasilar infiltrates. Flagyl added. We'll give 1 dose of vancomycin-Adjust antibiotics according to cultures. Patient super morbid obesity may prevent Prone therapy 03/28: Remains hypoxic but ABG shows marginal improvement in oxygenation. WBC increasing 20.1 today. Start vancomycin scheduled. 03/29: Oxygenation is slightly improved. FiO2 reduced to 50% today. Chest x- ray remains unchanged. On sedation hold patient does wake up and follow commands. WBC count remains at 20 03/30 No acute events overnight. Sedated with Diprivan and Fentanyl. Had T: 100.1 at 4 am. WBC trending down 15.9 today from 20. 03/31 Patient remains sedated with Diprivan, Fentanyl and intubated. Tmax 100.1. Patient required increase O2 overnight now on ACV with PEEP: 12 and FIO2 70%. 04/01: Tmax 99.7. No bowel movement since admission. Patient has bowel sounds. Arousable on the ventilator. We'll attempt prone the patient paralyzed to increase oxygenation status. 04/02: MAXIMUM TEMPERATURE 100.9. Currently 97.7. 5 10 cc stools overnight. Placed on Roto prone yesterday. Saturations currently 94% on Flolan. Diuresed overnight. Creatinine still within normal limits. 04/03: Tmax 101. Currently 99.1. Positive BM. Did not tolerate not being unprone this AM. Saturations much improved prone. Tolerating tube feeding. Subjective 04/04: Tmax 100.8. Currently 98.8. +2 L past 24 hours. Attempt to on prone today. Positive BM. C. difficile negative. Remains paralyzed. 2: Remains sedated, orally intubated on neuromuscular blockade on mechanical ventilation. Remains on Rota prone bed. On insulin drip. 04/06: Remains sedated, orally intubated on neuromuscular blockade, on mechanical ventilation. Remains on Rota prone bed. Insulin drip continues. Objective Vital Signs Date Time Temp Pulse Resp B/P Pulse Ox O2 Delivery O2 Flow Rate FiO2 04/06/16 12:00 98.1 70 15 125/80 92 04/06/16 12:00 100 Intake and Output 04/05/16 04/05/16 04/06/16 08:00 16:00 00:00 Intake Total 1532 ml 1984 ml 1885 ml Output Total 1150 ml 3000 ml 1275 ml Balance 382 ml -1016 ml 610 ml Result Diagram: 04/06/16 0440 04/06/16 0440 Other Results Laboratory Tests Test 04/06/16 04:40 White Blood Count 20.6 TH/MM3 Red Blood Count 4.79 MIL/MM3 Hemoglobin 13.0 GM/DL Hematocrit 40.3 % Mean Corpuscular Volume 84.2 FL Mean Corpuscular Hemoglobin 27.1 PG Mean Corpuscular Hemoglobin 32.2 % Concent Red Cell Distribution Width 15.0 % Platelet Count 299 TH/MM3 Mean Platelet Volume 9.6 FL Neutrophils (%) (Auto) 91.5 % Lymphocytes (%) (Auto) 2.4 % Monocytes (%) (Auto) 5.9 % Eosinophils (%) (Auto) 0.0 % Basophils (%) (Auto) 0.2 % Neutrophils # (Auto) 18.9 TH/MM3 Lymphocytes # (Auto) 0.5 TH/MM3 Monocytes # (Auto) 1.2 TH/MM3 Eosinophils # (Auto) 0.0 TH/MM3 Basophils # (Auto) 0.0 TH/MM3 CBC Comment AUTO DIFF Differential Total Cells 100 Counted Neutrophils % (Manual) 90 % Band Neutrophils % 2 % Lymphocytes % 2 % Monocytes % 6 % Neutrophils # (Manual) 19.0 TH/MM3 Differential Comment FINAL DIFF MANUAL Platelet Estimate NORMAL Platelet Morphology Comment NORMAL Red Cell Morphology Comment NORMAL Sodium Level 141 MEQ/L Potassium Level 4.4 MEQ/L Chloride Level 101 MEQ/L Carbon Dioxide Level 34.3 MEQ/L Anion Gap 6 MEQ/L Blood Urea Nitrogen 38 MG/DL Creatinine 0.76 MG/DL Estimat Glomerular Filtration 109 ML/MIN Rate Random Glucose 168 MG/DL Calcium Level 8.8 MG/DL Total Bilirubin 0.4 MG/DL Aspartate Amino Transf 11 U/L (AST/SGOT) Alanine Aminotransferase 28 U/L (ALT/SGPT) Alkaline Phosphatase 56 U/L Total Protein 6.7 GM/DL Albumin 2.7 GM/DL Imaging Last 24 hours Impressions Chest X-Ray 04/05/16 06 Signed Impressions: Service Date/Time: April 03:25 - CONCLUSION: 1. Improved basilar consolidation. Residual versus developing right midlung consolidation. 2. Small bilateral pleural effusions are suspected. 3. No change cardiomegaly or lines/tubes. Ubaldo Ortiz MD Last Impressions Chest X-Ray 04/04/16 0600 Signed Impressions: Service Date/Time: Monday, April 04, 2016 04:44 - CONCLUSION: Worsening bilateral airspace opacities, especially left perihilar. Ubaldo Ortiz MD Abdomen X-Ray 03/31/16 0000 Signed Impressions: Service Date/Time: Thursday, March 31, 2016 09:58 - CONCLUSION: Benign abdomen. Rodrigo Martinez MD Chest CT 03/28/16 0836 Signed Impressions: Service Date/Time: Monday, March 28, 2016 09:57 - CONCLUSION: Development areas of air bronchograms and consolidation more prominent in the right and left posterior basilar segments of the lower lobes. ET tube above the chanelle. Bernard Hartman MD CT Angiography 03/24/16 1121 Signed Impressions: Service Date/Time: Thursday, March 24, 2016 12:47 - CONCLUSION: 1. There is respiratory motion artifact but no PE is identified through most of the segmental level pulmonary arteries. 2. Mildly enlarged main pulmonary artery may indicate pulmonary arterial hypertension. 3. 11 mm left lower lobe noncalcified pulmonary nodule. Suggest correlation with any prior imaging studies that could confirm longer-term stability. If none are available consider short-term followup noncontrast chest CT in approximately 3 months. Ubaldo Rodas MD Objective Remarks GENERAL: 50-year-old male, critically ill. Orally intubated on mechanical ventilation, on sedation and neuromuscular blockade SKIN: Evidence of seborrheic dermatitis of the face HEAD: Atraumatic. Normocephalic. EYES: Pupils equal round and slightly reactive about 3 millimeters bilaterally. ENT: NG tube in place. NECK: Very large neck. Trachea midline. Right IJ clean dry and intact CARDIOVASCULAR: Distant heart sounds. RRR. S1, S2. No S4. Without murmur RESPIRATORY: Orally intubated on mechanical ventilation, Breath sounds equal bilaterally. Diminished breath sounds due to body habitus. GASTROINTESTINAL: Abdomen soft, obese, nontender. Severe central obesity MUSCULOSKELETAL: Extremities with trace to 1+ nonpitting bilateral lower extremity edema. NEUROLOGICAL: Intubated and paralyzed on the ventilator. Date of Insertion: Apr 02, 2016 Line: Central Venous Catheter Side: Right Location: Internal, Jugular A/P Assessment and Plan NEURO/Psych: -On propofol 50 mcg/kg per minute, Versed drip at 10 mg an hour and fentanyl drip at 250 g an hour for sedation/analgesia while intubated Nimbex drip currently at 3 mcg/kg per minute to maintain a [id number] 2/4 Daily sedation vacation on hold secondary to paralytic/oxygenation status. Acetaminophen for fever Paralyzed with Nimbex [id number] 2 out of 4. RESP: Acute respiratory failure Obstructive sleep apnea Obesity hypoventilation syndrome Staph aureus pneumonia Left lower lobe pulmonary nodule of 11 millimeters - follow up CT chest 3 months without contrast recommended Pulmonary edema PRVC 15/around 570/1.65/15/100 Ventilator bundle Bronchodilator therapy every 4 hours and as needed -Emergently intubated and placed on mechanical ventilation 03/26/16 Continue Flolan today at 50 ng/kg per minute for oxygenation. -Solu-Medrol 40 mg IV q12 CTA chest revealed no PE. Possible pulmonary arterial hypertension. 11 mm pulmonary nodule. Bilateral lower lobe air bronchograms Paralyzed with Nimbex drip 04/01 and prone patient. CV: -Monitor HR and BP keep MAP>65mmHg -2-D echo 03/26 EF 60%. No regional wall motion abnormality. Mild . Mild MR/ TR Currently not requiring any anti-hypertensives and or vasopressors GI: Constipation Hypoalbuminemia -Tube feeds with Glucerna 1.5@45ml/hr, - IV Protonix 40 mg IV daily -Colace, senna for bowel regimen /FEN: Hyper-magnesium -Monitor renal function, I/O's, electrolytes replacement per protocol. -On Lasix 20mg BID ID/DERM: Staph aureus pneumonia Infectious disease consultation/Dr. Painter. Appreciate recommendations. -Continue with abx (Zyvox, Levaquin and Flagyl since 03/26.) Continue Diflucan 40 mg IV day Discontinued vancomycin and aztreonam 03/31 - Blood cultures 04/02 - no growth - Sputum 04/02 - reincubate -03/30 sputum culture with staph aureus - 03/30 - urine - no growth - 03/30 - blood cultures 2 - negative -03/27 Sputum culture with staph aureus -03/26 03/07 bottles coag negative staph probable contamination HEME: Leukocytosis -Monitor CBC, CMP, coags ENDO: Diabetes mellitus Hyperglycemia critical illness Currently on insulin drip algorithm #4. Levemir 60 units subcutaneous every 12 hourly (04/05) On metformin 500 mg by mouth twice a day at home. This has been held MSK: Morbid obesity Weight loss encouraged. PT evaluate and treat PROPH: -Bilateral lower extremity SCDs. IV Protonix 40 mg daily. Lovenox 40 mg sq BID LINES: -Right IJ CVL in right radial art line 04/02- present -[facility] central line and L radial art line in place 03/26 - 04/02. Critical Care: The total critical care time was 45 minutes. Time to perform other separately billable procedures was not included in the critical care time. Aditya Monge MD Apr 06, 2016 14:31
[2016-04-06 14:41] LABS: BLOOD GAS BASE EXCESS 6.6 mmol/L (-2-2); BLOOD GAS CARBOXYHEMOGLOBIN 1.3 % (0-4); BLOOD GAS HCO3 31 mmol/L (22-26); BLOOD GAS METHEMOGLOBIN 1.3 % (0-2); BLOOD GAS O2 HGB SATURATION 95 % (90-100); BLOOD GAS OXYGEN CONTENT 19.3 Vol % (12.0-20.0); BLOOD GAS PCO2 50 mmHg (38-42); BLOOD GAS PO2 109 mmHg (61-120); BLOOD GAS TOTAL HGB 14.3 G/DL (12.0-16.0); CRITICAL VALUE NO; DRAW SITE LT RADIAL; FIO2 100 %; NUMBER OF ARTERIAL PUNCTURES 1; OXYGEN DEVICE VENTILATOR; STAT NO; TEMP CORR TO 98.6; ULNAR PULSE PRESENT; VENT SETTINGS PRVC/AC
[2016-04-06] MEDS: LEVOFLOXACIN 750 MG PREMIX INJ 150 ML IV SCH (15:15)
[2016-04-06] MEDS: FLUCONAZOLE 400 MG PREMIX BAG 200 ML IV SCH (17:33)
[2016-04-06] MEDS: PANTOPRAZOLE SODIUM 40 MG VIAL IV PUSH SCH (17:33)
[2016-04-07] VITALS (17 sets, daily range): BP systolic 91–135; BP diastolic 54–69; PULSE 64–79; RESP 15; TEMP 98.1–100.3; O2SAT 88–93
[2016-04-07] MEDS: RESP: ALBUTEROL 2.5 MG/IPRATROPIUM 0.5 MG NEB (SCH) NEB ×6 (00:21→23:55)
[2016-04-07] MEDS: PROPOFOL 1000 MG/100 ML IV SCH ×8 (03:19→20:46)
[2016-04-07] MEDS: CISATRACURIUM INJ 100 MG in SODIUM CHLOR 0.9% 250 ML INJ 240 ML IV SCH ×3 (04:33→18:47)
[2016-04-07] MEDS: INSULIN REGULAR (IV INFUSION) 100 UNITS in SODIUM CHLORIDE 0.9% INJ 99 ML IV SCH (04:33)
[2016-04-07 04:51] LABS: AUTOMATED NEUTROPHIL # 19.3 TH/MM3 (1.8-7.7); BASOPHIL % 0.2 % (0.0-2.0); LYMPH % 2.9 % (9.0-44.0); LYMPHOCYTE # 0.6 TH/MM3 (1.0-4.8); MEAN CELL VOLUME 84.7 FL (80.0-100.0); MEAN CORPUSCULAR HEMOGLOBIN 27.5 PG (27.0-34.0); MEAN CORPUSCULAR HGB CONC 32.4 % (32.0-36.0); MONO % 4.2 % (0.0-8.0); NEUT % 92.7 % (16.0-70.0); PLATELET COUNT 302 TH/MM3 (150-450); RED BLOOD COUNT 4.96 MIL/MM3 (4.50-5.90); WHITE BLOOD COUNT 20.8 TH/MM3 (4.0-11.0)
[2016-04-07 04:55] LABS: HEMO FLAGS AUTO DIFF
[2016-04-07 05:12] LABS: ALT (GPT) 31 U/L (12-78); ANION GAP 4 MEQ/L (5-15); AST (GOT) 14 U/L (15-37); BICARBONATE 35.9 MEQ/L (21.0-32.0); BLOOD UREA NITROGEN 40 MG/DL (7-18); CHLORIDE 101 MEQ/L (98-107); GLOMERULAR FILTRATION RATE 109 ML/MIN (>89); POTASSIUM 4.4 MEQ/L (3.5-5.1); SODIUM (NA) 141 MEQ/L (136-145)
[2016-04-07 05:14] LABS: ALKALINE PHOSPHATASE 62 U/L (45-117); TOTAL BILIRUBIN ADULT 0.5 MG/DL (0.2-1.0)
[2016-04-07] MEDS: fentaNYL 2,500 MCG/NS 250 ML IV SCH ×3 (05:39→20:43)
[2016-04-07] MEDS: METOCLOPRAMIDE HCL 10 MG/2 ML VIAL IV PUSH SCH ×3 (05:39→21:49)
[2016-04-07] MEDS: ENOXAPARIN SODIUM 40 MG/0.4 ML SYRINGE SQ SCH ×2 (05:40→17:15)
[2016-04-07] MEDS: EPOPROSTENOL NEB SOLUTION 50 NG/KG/MIN 100 ML NEB SCH ×2 (05:40)
[2016-04-07] MEDS: MIDAZOLAM 100 MG/ML INJ 100 ML IV SCH ×3 (05:40→20:44)
[2016-04-07 05:45] LABS: BLOOD GAS BASE EXCESS 7.9 mmol/L (-2-2); BLOOD GAS CARBOXYHEMOGLOBIN 1.1 % (0-4); BLOOD GAS HCO3 33 mmol/L (22-26); BLOOD GAS METHEMOGLOBIN 1.3 % (0-2); BLOOD GAS O2 HGB SATURATION 92 % (90-100); BLOOD GAS OXYGEN CONTENT 18.8 Vol % (12.0-20.0); BLOOD GAS PCO2 60 mmHg (38-42); BLOOD GAS PO2 79 mmHg (61-120); BLOOD GAS TOTAL HGB 14.4 G/DL (12.0-16.0); TEMP CORR TO 98.6
[2016-04-07 05:46] LABS: CRITICAL VALUE YES
[2016-04-07 05:47] LABS: OXYGEN DEVICE VENTILATOR
[2016-04-07 05:48] LABS: DRAW SITE RT RADIAL; FIO2 100 %; NUMBER OF ARTERIAL PUNCTURES 1; STAT NO; ULNAR PULSE PRESENT; VENT SETTINGS PRVC AC
[2016-04-07] MEDS: CHLORHEXIDINE 0.12% (ORAL KIT) 15 ML CUP MT SCH ×2 (07:39→19:18)
[2016-04-07] MEDS: metroNIDAZOLE 500 MG INJ 100 ML IV SCH ×2 (07:39→15:00)
[2016-04-07] MEDS: BENEPROTEIN POWDER 1 PACK G-TUBE SCH ×3 (07:39→17:15)
[2016-04-07] MEDS: LACTOBACILLUS ACIDOPHILUS TAB PO SCH ×3 (07:40→17:14)
[2016-04-07] MEDS: SENNOSIDES SYRUP 8.8 MG/5 ML CUP PO/TUBE SCH ×2 (07:40→20:46)
[2016-04-07] MEDS: ARTIFICIAL TEARS OPTH OINT 3.5 APPLIC/3.5 GM TUBO EACH EYE SCH ×2 (07:40→20:47)
[2016-04-07] MEDS: methylPREDNISolone SOD SUCC 40 MG/1 ML VIAL IV PUSH SCH ×2 (07:40→20:46)
[2016-04-07] MEDS: BETAMETHASONE/CLOTRIMAZOLE CREAM 15 GM TOPICAL SCH ×2 (07:40→20:47)
[2016-04-07] MEDS: DOCUSATE SODIUM 100 MG/10 ML UDC PO SCH ×2 (07:40→20:46)
[2016-04-07] MEDS: INSULIN DETEMIR 100 UNITS/ML VIAL SQ SCH ×2 (07:41→20:46)
[2016-04-07] MEDS: SODIUM CHLORIDE 0.9% FLUSH 5 ML FLUSH IVF SCH (07:41)
[2016-04-07] MEDS: FUROSEMIDE 20 MG/2 ML VIAL IV PUSH SCH ×2 (07:41→17:15)
[2016-04-07] MEDS ORDERED: GLUCAGON 1 MG/ML VIAL OTHER PRN ×2 (10:15→17:00)
[2016-04-07] MEDS ORDERED: DEXTROSE 50% IN WATER 50 ML VIAL(D50) IV PUSH PRN ×2 (10:15→17:00)
--- NOTE | 2016-04-07 10:18 | HHI.CCPN ---
Subjective Remarks/Hospital Course Patient is a 50 years old obese male with past medical history significant for undiagnosed sleep apnea, super morbid obesity, type 2 diabetes was brought to the emergency department on 03/24/16 after feeling light headed and dizzy. On presentation here was found to be hypoxemic and ABG showed severe hypoxemia and hypercarbia. For a recent driving physical he was diagnosed with low oxygen saturations. Patient's oxygen saturation the ED was in the low 80s, which was confirmed on ABG with a oxygen saturation of 78% and PO2 of 46. CTA negative for PE. Patient was initiated on BiPAP therapy with consult to pulmonary Dr. Crane. His oxygenation improved but he continued to be hypercapnic. Today a.m. on nasal cannula his pH was 7.26 and PCO2 was increased at 99, patient was somnolent was placed back on BiPAP and repeat ABG at noon showed pH 7.26 PCO2 98 and pO2 70. This was on 16 BiPAP with FiO2 50%. Critical care was consulted. On my evaluation patient is somnolent but wakes up easily. I reduced the PEEP on BiPAP from 12-7 to facilitate better ventilation. A repeat ANG showed only minimal improvement, so decision made to intubate patient. Glidescope with #4 blade was used. Only propofol was used for induction. Initially I had a Grade 1-2 view, but I was unable to pass tube through the vocal cord to trachea in two attempts. Tube slipped out of Laryngeal opening both times. Dr Garrett intubated patient after NM paralysis with succinylcholine. Post intubation ABG showed improvement in hypercapnia and oxygenation. 03/27/16: Patient remains intubated heavily sedated with propofol and fentanyl. Remained severely hypoxemic on 100% FiO2, PEEP12, chest x-ray shows bibasilar infiltrates. Flagyl added. We'll give 1 dose of vancomycin-Adjust antibiotics according to cultures. Patient super morbid obesity may prevent Prone therapy 03/28: Remains hypoxic but ABG shows marginal improvement in oxygenation. WBC increasing 20.1 today. Start vancomycin scheduled. 03/29: Oxygenation is slightly improved. FiO2 reduced to 50% today. Chest x- ray remains unchanged. On sedation hold patient does wake up and follow commands. WBC count remains at 20 03/30 No acute events overnight. Sedated with Diprivan and Fentanyl. Had T: 100.1 at 4 am. WBC trending down 15.9 today from 20. 03/31 Patient remains sedated with Diprivan, Fentanyl and intubated. Tmax 100.1. Patient required increase O2 overnight now on ACV with PEEP: 12 and FIO2 70%. 04/01: Tmax 99.7. No bowel movement since admission. Patient has bowel sounds. Arousable on the ventilator. We'll attempt prone the patient paralyzed to increase oxygenation status. 04/02: MAXIMUM TEMPERATURE 100.9. Currently 97.7. 5 10 cc stools overnight. Placed on Roto prone yesterday. Saturations currently 94% on Flolan. Diuresed overnight. Creatinine still within normal limits. 04/03: Tmax 101. Currently 99.1. Positive BM. Did not tolerate not being unprone this AM. Saturations much improved prone. Tolerating tube feeding. Subjective 04/04: Tmax 100.8. Currently 98.8. +2 L past 24 hours. Attempt to on prone today. Positive BM. C. difficile negative. Remains paralyzed. 04/05: Remains sedated, orally intubated on neuromuscular blockade on mechanical ventilation. Remains on Rota prone bed. On insulin drip. 04/06: Remains sedated, orally intubated on neuromuscular blockade, on mechanical ventilation. Remains on Rota prone bed. Insulin drip continues. 04/07 Patient remains on Rotoprone bed sedated with Diprivan, Versed, Fentanyl in addition patient is on Nimbex. Afebrile. On Insulin drip 5u/hr. Objective Vital Signs Date Time Temp Pulse Resp B/P Pulse Ox O2 Delivery O2 Flow Rate FiO2 04/07/16 08:00 69 04/07/16 08:00 100 04/07/16 08:00 99.3 15 101/59 92 Intake and Output 04/06/16 04/06/16 04/07/16 08:00 16:00 00:00 Intake Total 1543 ml 1668 ml 1266 ml Output Total 1400 ml 2250 ml 2000 ml Balance 143 ml -582 ml -734 ml Result Diagram: 04/07/16 0428 04/07/16 0428 Other Results Laboratory Tests Test 04/06/16 04/07/16 04/07/16 14:32 04:28 05:33 Blood Gas Puncture Site LT RADIAL RT RADIAL Blood Gas Patient Temperature 98.6 98.6 Blood Gas HCO3 31 mmol/L 33 mmol/L Blood Gas Base Excess 6.6 mmol/L 7.9 mmol/L Blood Gas Oxygen Saturation 95 % 92 % Arterial Blood pH 7.41 7.37 Arterial Blood Partial 50 mmHg 60 mmHg Pressure CO2 Arterial Blood Partial 109 mmHg 79 mmHg Pressure O2 Arterial Blood Oxygen Content 19.3 Vol % 18.8 Vol % Arterial Blood 1.3 % 1.1 % Carboxyhemoglobin Arterial Blood Methemoglobin 1.3 % 1.3 % Blood Gas Hemoglobin 14.3 G/DL 14.4 G/DL Oxygen Delivery Device VENTILATOR VENTILATOR Blood Gas Ventilator Setting PRVC/AC PRVC AC Blood Gas Inspired Oxygen 100 % 100 % White Blood Count 20.8 TH/MM3 Red Blood Count 4.96 MIL/MM3 Hemoglobin 13.6 GM/DL Hematocrit 42.0 % Mean Corpuscular Volume 84.7 FL Mean Corpuscular Hemoglobin 27.5 PG Mean Corpuscular Hemoglobin 32.4 % Concent Red Cell Distribution Width 15.0 % Platelet Count 302 TH/MM3 Mean Platelet Volume 9.2 FL Neutrophils (%) (Auto) 92.7 % Lymphocytes (%) (Auto) 2.9 % Monocytes (%) (Auto) 4.2 % Eosinophils (%) (Auto) 0.0 % Basophils (%) (Auto) 0.2 % Neutrophils # (Auto) 19.3 TH/MM3 Lymphocytes # (Auto) 0.6 TH/MM3 Monocytes # (Auto) 0.9 TH/MM3 Eosinophils # (Auto) 0.0 TH/MM3 Basophils # (Auto) 0.0 TH/MM3 CBC Comment AUTO DIFF Sodium Level 141 MEQ/L Potassium Level 4.4 MEQ/L Chloride Level 101 MEQ/L Carbon Dioxide Level 35.9 MEQ/L Anion Gap 4 MEQ/L Blood Urea Nitrogen 40 MG/DL Creatinine 0.76 MG/DL Estimat Glomerular Filtration 109 ML/MIN Rate Random Glucose 170 MG/DL Calcium Level 9.1 MG/DL Total Bilirubin 0.5 MG/DL Aspartate Amino Transf 14 U/L (AST/SGOT) Alanine Aminotransferase 31 U/L (ALT/SGPT) Alkaline Phosphatase 62 U/L Total Protein 7.1 GM/DL Albumin 2.8 GM/DL Imaging Last 24 hours Impressions Chest X-Ray 04/05/16 0600 Signed Impressions: Service Date/Time: April 03:25 - CONCLUSION: 1. Improved basilar consolidation. Residual versus developing right midlung consolidation. 2. Small bilateral pleural effusions are suspected. 3. No change cardiomegaly or lines/tubes. Ubaldo Ortiz MD Last Impressions Chest X-Ray 04/04/16 0600 Signed Impressions: Service Date/Time: Monday, April 04, 2016 04:44 - CONCLUSION: Worsening bilateral airspace opacities, especially left perihilar. Ubaldo Ortiz MD Abdomen X-Ray 03/31/16 0000 Signed Impressions: Service Date/Time: Thursday, March 31, 2016 09:58 - CONCLUSION: Benign abdomen. Rodrigo Martinez MD Chest CT 03/28/16 0836 Signed Impressions: Service Date/Time: Monday, March 28, 2016 09:57 - CONCLUSION: Development areas of air bronchograms and consolidation more prominent in the right and left posterior basilar segments of the lower lobes. ET tube above the chanelle. Bernard Hartman MD CT Angiography 03/24/16 1121 Signed Impressions: Service Date/Time: Thursday, March 24, 2016 12:47 - CONCLUSION: 1. There is respiratory motion artifact but no PE is identified through most of the segmental level pulmonary arteries. 2. Mildly enlarged main pulmonary artery may indicate pulmonary arterial hypertension. 3. 11 mm left lower lobe noncalcified pulmonary nodule. Suggest correlation with any prior imaging studies that could confirm longer-term stability. If none are available consider short-term followup noncontrast chest CT in approximately 3 months. Ubaldo Rodas MD Objective Remarks GENERAL: 50-year-old male, critically ill. Orally intubated on mechanical ventilation, on sedation and neuromuscular blockade SKIN: Evidence of seborrheic dermatitis of the face HEAD: Atraumatic. Normocephalic. EYES: Pupils equal round and slightly reactive about 3 millimeters bilaterally. ENT: NG tube in place. NECK: Very large neck. Trachea midline. Right IJ clean dry and intact CARDIOVASCULAR: Distant heart sounds. RRR. S1, S2. No S4. Without murmur RESPIRATORY: Orally intubated on mechanical ventilation, Breath sounds equal bilaterally. Diminished breath sounds due to body habitus. GASTROINTESTINAL: Abdomen soft, obese, nontender. Severe central obesity MUSCULOSKELETAL: Extremities with trace to 1+ nonpitting bilateral lower extremity edema. NEUROLOGICAL: Intubated and paralyzed on the ventilator. Date of Insertion: Apr 02, 2016 Line: Central Venous Catheter Side: Right Location: Internal, Jugular A/P Assessment and Plan NEURO/Psych: -Continue with sedation ( Diprivan, Fentanyl and Versed) Nimbex drip currently at 2 mcg/kg per minute to maintain a [id number] 2/4 Daily sedation vacation on hold secondary to paralytic/oxygenation status. Acetaminophen for fever Paralyzed with Nimbex [id number] 2 out of 4. RESP: Acute respiratory failure Obstructive sleep apnea Obesity hypoventilation syndrome Staph aureus pneumonia Left lower lobe pulmonary nodule of 11 millimeters - follow up CT chest 3 months without contrast recommended Pulmonary edema PRVC 15/around 570/1.65/15/100 Ventilator bundle Bronchodilator therapy every 4 hours and as needed -Emergently intubated and placed on mechanical ventilation 03/26/16 Continue Flolan today at 50 ng/kg per minute for oxygenation. -Solu-Medrol 40 mg IV q12 CTA chest revealed no PE. Possible pulmonary arterial hypertension. 11 mm pulmonary nodule. Bilateral lower lobe air bronchograms Paralyzed with Nimbex drip 04/01 CV: -Monitor HR and BP keep MAP>65mmHg -2-D echo 03/26 EF 60%. No regional wall motion abnormality. Mild . Mild MR/ TR GI: Constipation Hypoalbuminemia -Tube feeds with Glucerna 1.5@45ml/hr, - IV Protonix 40 mg IV daily -Colace, senna for bowel regimen /FEN: Hyper-magnesium -Monitor renal function, I/O's, electrolytes replacement per protocol. -On Lasix 20mg BID ID/DERM: Staph aureus pneumonia Infectious disease consultation/Dr. Painter. Appreciate recommendations. -Continue with abx per ID(Levaquin, Flagyl, Diflucan) Discontinued vancomycin and aztreonam 03/31 - Blood cultures 04/02 - no growth - Sputum 04/02 - reincubate -03/30 sputum culture with staph aureus - 03/30 - urine - no growth - 03/30 - blood cultures 2 - negative -03/27 Sputum culture with staph aureus -03/26 03/07 bottles coag negative staph probable contamination HEME: Leukocytosis -Monitor CBC, CMP, coags ENDO: Diabetes mellitus Hyperglycemia critical illness Wean off insulin drip and place on SSI ( medium scale), hold Levemir MSK: Morbid obesity Weight loss encouraged. PT evaluate and treat PROPH: -Bilateral lower extremity SCDs. IV Protonix 40 mg daily. Lovenox 40 mg sq BID LINES: -Right IJ CVL in right radial art line 04/02- present -LIJ central line and L radial art line in place 03/26 - 04/02. Palliative care eval to asses with goals of care Critical Care: The total critical care time was 35 minutes. Time to perform other separately billable procedures was not included in the critical care time. Rob Malloy MD Apr 07, 2016 10:18
[2016-04-07 10:47] LABS: BANDS 5 % (0-6); NEUTROPHIL # MANUAL DIFF 18.5 TH/MM3 (1.8-7.7); PLATELET ESTIMATE SMEAR NORMAL (NORMAL); PLATELET MORPHOLOGY NORMAL (NORMAL); POLYS (SEG NEUTROPHILS) 84 % (16-70); SCAN/DIFF FINAL DIFF MANUAL; WBC DIFF SAMPLE 100
[2016-04-07] MEDS ORDERED: INSULIN NovoLIN REGULAR SUPPLEMENTAL SCALE SQ SCH (11:00)
[2016-04-07] MEDS: LEVOFLOXACIN 750 MG PREMIX INJ 150 ML IV SCH (13:39)
[2016-04-07] MEDS: FLUCONAZOLE 400 MG PREMIX BAG 200 ML IV SCH (16:13)
[2016-04-07] MEDS: INSULIN NovoLIN REGULAR SUPPLEMENTAL SCALE SQ SCH (17:15)
[2016-04-07] MEDS: PANTOPRAZOLE SODIUM 40 MG VIAL IV PUSH SCH (17:15)
--- NOTE | 2016-04-07 17:34 | HHI.PR ---
Subjective Remarks 50 YO morbidly obese male with VDRF, on Rotoprone On APRV, Fi02 100% Sedated On Nimbex Objective Vital Signs Vital Signs Date Time Temp Pulse Resp B/P Pulse Ox O2 Delivery O2 Flow Rate FiO2 04/07/16 16:00 100 04/07/16 16:00 71 04/07/16 15:42 89 100 04/07/16 12:00 98.1 79 15 135/63 88 04/07/16 12:00 100 04/07/16 12:00 68 04/07/16 10:00 68 04/07/16 08:00 69 04/07/16 08:00 100 04/07/16 08:00 99.3 69 15 101/59 92 04/07/16 07:57 92 100 04/07/16 06:00 74 04/07/16 04:06 93 100 04/07/16 04:00 71 04/07/16 04:00 100 04/07/16 04:00 99.7 71 15 113/66 93 04/07/16 02:00 75 04/07/16 01:06 89 100 04/07/16 00:00 71 04/07/16 00:00 100.3 71 15 123/69 91 04/07/16 00:00 100 04/06/16 22:08 93 100 04/06/16 22:00 69 04/06/16 20:00 100 04/06/16 20:00 78 04/06/16 20:00 99.5 78 15 96/49 92 04/06/16 19:15 92 100 04/06/16 18:00 76 I/O 04/06/16 04/06/16 04/06/16 04/07/16 04/07/16 04/07/16 07:00 15:00 23:00 07:00 15:00 23:00 Intake Total 1543 ml 1668 ml 1266 ml 1326 ml 1819 ml 180 ml Output Total 1400 ml 2250 ml 2000 ml 1000 ml 1550 ml 900 ml Balance 143 ml -582 ml -734 ml 326 ml 269 ml -720 ml IV Total 1238 ml 1365 ml 959 ml 900 ml 1109 ml Tube Feeding 305 ml 303 ml 307 ml 306 ml 350 ml Tube Irrigant 120 ml Other 360 ml 180 ml Output Urine Total 1200 ml 2200 ml 1800 ml 900 ml 1550 ml 900 ml Stool Total 200 ml 50 ml 200 ml 100 ml Result Diagram: 04/07/1642704/07/16427 Objective Remarks GENERAL: Morbidly obese male on Rotoprone SKIN: Warm and dry. HEAD: Normocephalic. EYES: No scleral icterus. No injection or drainage. NECK: Supple, trachea midline. No JVD or lymphadenopathy. CARDIOVASCULAR: Regular rate and rhythm without murmurs, gallops, or rubs. RESPIRATORY: Breath sounds equal bilaterally. No accessory muscle use. GASTROINTESTINAL: Abdomen soft, non-tender, nondistended. MUSCULOSKELETAL: No cyanosis, or edema. BACK: Nontender without obvious deformity. No CVA tenderness. A/P Assessment and Plan VDRF Profound Hypoxia ARDS Pneumonia JACOB PLAN: Cont Vent support On APRV, Fi02 100% Nimbex drip cont Abx Prognosis poor Musa Key MD Apr 07, 2016 17:34
[2016-04-08] VITALS (16 sets, daily range): BP systolic 88–138; BP diastolic 50–90; PULSE 64–85; RESP 15; TEMP 98.6–100.2; O2SAT 88–92
[2016-04-08] MEDS: metroNIDAZOLE 500 MG INJ 100 ML IV SCH ×3 (00:23→16:42)
[2016-04-08] MEDS: EPOPROSTENOL NEB SOLUTION 50 NG/KG/MIN 100 ML NEB SCH ×6 (00:24→18:03)
[2016-04-08] MEDS: INSULIN NovoLIN REGULAR SUPPLEMENTAL SCALE SQ SCH ×4 (00:32→17:44)
[2016-04-08] MEDS: PROPOFOL 1000 MG/100 ML IV SCH ×8 (02:07→20:33)
[2016-04-08] MEDS: RESP: ALBUTEROL 2.5 MG/IPRATROPIUM 0.5 MG NEB (SCH) NEB (03:48)
[2016-04-08] MEDS: CISATRACURIUM INJ 100 MG in SODIUM CHLOR 0.9% 250 ML INJ 240 ML IV SCH ×3 (04:29→18:03)
[2016-04-08] MEDS: METOCLOPRAMIDE HCL 10 MG/2 ML VIAL IV PUSH SCH ×3 (06:12→21:47)
[2016-04-08] MEDS: ENOXAPARIN SODIUM 40 MG/0.4 ML SYRINGE SQ SCH ×2 (06:12→17:19)
[2016-04-08 07:15] LABS: AUTOMATED NEUTROPHIL # 19.4 TH/MM3 (1.8-7.7); BASOPHIL % 0.2 % (0.0-2.0); HEMATOCRIT 41.4 % (39.0-51.0); HEMO FLAGS DIFF FINAL; LYMPH % 2.8 % (9.0-44.0); LYMPHOCYTE # 0.6 TH/MM3 (1.0-4.8); MEAN CELL VOLUME 85.2 FL (80.0-100.0); MEAN CORPUSCULAR HEMOGLOBIN 27.2 PG (27.0-34.0); MEAN CORPUSCULAR HGB CONC 31.9 % (32.0-36.0); MONO % 4.5 % (0.0-8.0); NEUT % 92.5 % (16.0-70.0); PLATELET COUNT 296 TH/MM3 (150-450); RED BLOOD COUNT 4.87 MIL/MM3 (4.50-5.90); RED CELL DISTRIBUTION WIDTH 14.9 % (11.6-17.2)
[2016-04-08] MEDS: INSULIN DETEMIR 100 UNITS/ML VIAL SQ SCH ×2 (07:26→20:29)
[2016-04-08] MEDS: LACTOBACILLUS ACIDOPHILUS TAB PO SCH ×3 (07:26→17:20)
[2016-04-08] MEDS: DOCUSATE SODIUM 100 MG/10 ML UDC PO SCH ×2 (07:26→20:28)
[2016-04-08] MEDS: SENNOSIDES SYRUP 8.8 MG/5 ML CUP PO/TUBE SCH ×2 (07:26→20:28)
[2016-04-08] MEDS: BENEPROTEIN POWDER 1 PACK G-TUBE SCH ×3 (07:27→17:20)
[2016-04-08] MEDS: FUROSEMIDE 20 MG/2 ML VIAL IV PUSH SCH ×2 (07:27→17:20)
[2016-04-08] MEDS: ARTIFICIAL TEARS OPTH OINT 3.5 APPLIC/3.5 GM TUBO EACH EYE SCH ×2 (07:27→20:28)
[2016-04-08] MEDS: methylPREDNISolone SOD SUCC 40 MG/1 ML VIAL IV PUSH SCH ×2 (07:27→20:29)
[2016-04-08] MEDS: BETAMETHASONE/CLOTRIMAZOLE CREAM 15 GM TOPICAL SCH ×2 (07:27→20:28)
[2016-04-08] MEDS: SODIUM CHLORIDE 0.9% FLUSH 5 ML FLUSH IVF SCH (07:27)
[2016-04-08] MEDS: CHLORHEXIDINE 0.12% (ORAL KIT) 15 ML CUP MT SCH ×2 (07:28→20:28)
[2016-04-08 07:35] LABS: ALKALINE PHOSPHATASE 60 U/L (45-117); ALT (GPT) 27 U/L (12-78); ANION GAP 7 MEQ/L (5-15); AST (GOT) 7 U/L (15-37); BICARBONATE 36.3 MEQ/L (21.0-32.0); BLOOD UREA NITROGEN 38 MG/DL (7-18); CHLORIDE 96 MEQ/L (98-107); GLOMERULAR FILTRATION RATE 114 ML/MIN (>89); MAGNESIUM 2.6 MG/DL (1.5-2.5); POTASSIUM 4.5 MEQ/L (3.5-5.1); SODIUM (NA) 139 MEQ/L (136-145); TOTAL BILIRUBIN ADULT 0.5 MG/DL (0.2-1.0)
[2016-04-08] MEDS: RESP: ALBUTEROL 2.5 MG/IPRATROPIUM 0.5 MG NEB (PRN) NEB (08:07)
--- NOTE | 2016-04-08 08:14 | HHI.CCPN ---
Subjective Remarks/Hospital Course Patient is a 50 years old obese male with past medical history significant for undiagnosed sleep apnea, super morbid obesity, type 2 diabetes was brought to the emergency department on 03/24/16 after feeling light headed and dizzy. On presentation here was found to be hypoxemic and ABG showed severe hypoxemia and hypercarbia. For a recent driving physical he was diagnosed with low oxygen saturations. Patient's oxygen saturation the ED was in the low 80s, which was confirmed on ABG with a oxygen saturation of 78% and PO2 of 46. CTA negative for PE. Patient was initiated on BiPAP therapy with consult to pulmonary Dr. Crane. His oxygenation improved but he continued to be hypercapnic. Today a.m. on nasal cannula his pH was 7.26 and PCO2 was increased at 99, patient was somnolent was placed back on BiPAP and repeat ABG at noon showed pH 7.26 PCO2 98 and pO2 70. This was on 16 BiPAP with FiO2 50%. Critical care was consulted. On my evaluation patient is somnolent but wakes up easily. I reduced the PEEP on BiPAP from 12-7 to facilitate better ventilation. A repeat ANG showed only minimal improvement, so decision made to intubate patient. Glidescope with #4 blade was used. Only propofol was used for induction. Initially I had a Grade 1-2 view, but I was unable to pass tube through the vocal cord to trachea in two attempts. Tube slipped out of Laryngeal opening both times. Dr Garrett intubated patient after NM paralysis with succinylcholine. Post intubation ABG showed improvement in hypercapnia and oxygenation. 03/27/16: Patient remains intubated heavily sedated with propofol and fentanyl. Remained severely hypoxemic on 100% FiO2, PEEP12, chest x-ray shows bibasilar infiltrates. Flagyl added. We'll give 1 dose of vancomycin-Adjust antibiotics according to cultures. Patient super morbid obesity may prevent Prone therapy 03/28: Remains hypoxic but ABG shows marginal improvement in oxygenation. WBC increasing 20.1 today. Start vancomycin scheduled. 03/29: Oxygenation is slightly improved. FiO2 reduced to 50% today. Chest x- ray remains unchanged. On sedation hold patient does wake up and follow commands. WBC count remains at 20 03/30 No acute events overnight. Sedated with Diprivan and Fentanyl. Had T: 100.1 at 4 am. WBC trending down 15.9 today from 20. 03/31 Patient remains sedated with Diprivan, Fentanyl and intubated. Tmax 100.1. Patient required increase O2 overnight now on ACV with PEEP: 12 and FIO2 70%. 04/01: Tmax 99.7. No bowel movement since admission. Patient has bowel sounds. Arousable on the ventilator. We'll attempt prone the patient paralyzed to increase oxygenation status. 04/02: MAXIMUM TEMPERATURE 100.9. Currently 97.7. 5 10 cc stools overnight. Placed on Roto prone yesterday. Saturations currently 94% on Flolan. Diuresed overnight. Creatinine still within normal limits. 04/03: Tmax 101. Currently 99.1. Positive BM. Did not tolerate not being unprone this AM. Saturations much improved prone. Tolerating tube feeding. Subjective 04/04: Tmax 100.8. Currently 98.8. +2 L past 24 hours. Attempt to on prone today. Positive BM. C. difficile negative. Remains paralyzed. 04/05: Remains sedated, orally intubated on neuromuscular blockade on mechanical ventilation. Remains on Rota prone bed. On insulin drip. 04/06: Remains sedated, orally intubated on neuromuscular blockade, on mechanical ventilation. Remains on Rota prone bed. Insulin drip continues. 04/07 Patient remains on Rotoprone bed sedated with Diprivan, Versed, Fentanyl in addition patient is on Nimbex. Afebrile. On Insulin drip 5u/hr. 04/08 Patient remains sedated and intubated and on Nimbex. Off insulin drip. On PRVC/AC with RR 15, TV 550, IT: 1.65, PEEP: 15 and FIO2 100%. T: 100.2 at 4 am. Objective Vital Signs Date Time Temp Pulse Resp B/P Pulse Ox O2 Delivery O2 Flow Rate FiO2 04/08/16 06:00 64 04/08/16 04:18 90 100 04/08/16 04:00 100.2 15 102/54 Intake and Output 04/07/16 04/07/16 04/08/16 08:00 16:00 00:00 Intake Total 1326 ml 1819 ml 1804 ml Output Total 1000 ml 1550 ml 2925 ml Balance 326 ml 269 ml -1121 ml Result Diagram: 04/08/16 0600 04/08/16 0600 Other Results Laboratory Tests Test 04/08/16 06:00 White Blood Count 21.0 TH/MM3 Red Blood Count 4.87 MIL/MM3 Hemoglobin 13.2 GM/DL Hematocrit 41.4 % Mean Corpuscular Volume 85.2 FL Mean Corpuscular Hemoglobin 27.2 PG Mean Corpuscular Hemoglobin 31.9 % Concent Red Cell Distribution Width 14.9 % Platelet Count 296 TH/MM3 Mean Platelet Volume 9.9 FL Neutrophils (%) (Auto) 92.5 % Lymphocytes (%) (Auto) 2.8 % Monocytes (%) (Auto) 4.5 % Eosinophils (%) (Auto) 0.0 % Basophils (%) (Auto) 0.2 % Neutrophils # (Auto) 19.4 TH/MM3 Lymphocytes # (Auto) 0.6 TH/MM3 Monocytes # (Auto) 1.0 TH/MM3 Eosinophils # (Auto) 0.0 TH/MM3 Basophils # (Auto) 0.0 TH/MM3 CBC Comment DIFF FINAL Differential Comment Sodium Level 139 MEQ/L Potassium Level 4.5 MEQ/L Chloride Level 96 MEQ/L Carbon Dioxide Level 36.3 MEQ/L Anion Gap 7 MEQ/L Blood Urea Nitrogen 38 MG/DL Creatinine 0.73 MG/DL Estimat Glomerular Filtration 114 ML/MIN Rate Random Glucose 252 MG/DL Calcium Level 8.8 MG/DL Phosphorus Level 3.2 MG/DL Magnesium Level 2.6 MG/DL Total Bilirubin 0.5 MG/DL Aspartate Amino Transf 7 U/L (AST/SGOT) Alanine Aminotransferase 27 U/L (ALT/SGPT) Alkaline Phosphatase 60 U/L Total Protein 6.7 GM/DL Albumin 2.8 GM/DL Imaging Last Impressions Chest X-Ray 04/05/16 0600 Signed Impressions: Service Date/Time: April 03:25 - CONCLUSION: 1. Improved basilar consolidation. Residual versus developing right midlung consolidation. 2. Small bilateral pleural effusions are suspected. 3. No change cardiomegaly or lines/tubes. Ubaldo Ortiz MD Abdomen X-Ray 03/31/16 0000 Signed Impressions: Service Date/Time: Thursday, March 31, 2016 09:58 - CONCLUSION: Benign abdomen. Rodrigo Martinez MD Chest CT 03/28/16 0836 Signed Impressions: Service Date/Time: Monday, March 28, 2016 09:57 - CONCLUSION: Development areas of air bronchograms and consolidation more prominent in the right and left posterior basilar segments of the lower lobes. ET tube above the chanelle. Bernard Hartman MD CT Angiography 03/24/16 1121 Signed Impressions: Service Date/Time: Thursday, March 24, 2016 12:47 - CONCLUSION: 1. There is respiratory motion artifact but no PE is identified through most of the segmental level pulmonary arteries. 2. Mildly enlarged main pulmonary artery may indicate pulmonary arterial hypertension. 3. 11 mm left lower lobe noncalcified pulmonary nodule. Suggest correlation with any prior imaging studies that could confirm longer-term stability. If none are available consider short-term followup noncontrast chest CT in approximately 3 months. Ubaldo Rodas MD Objective Remarks GENERAL: 50-year-old male, critically ill. Orally intubated on mechanical ventilation, on sedation and neuromuscular blockade SKIN: Evidence of seborrheic dermatitis of the face HEAD: Atraumatic. Normocephalic. EYES: Pupils equal round and slightly reactive about 3 millimeters bilaterally. ENT: NG tube in place. NECK: Very large neck. Trachea midline. Right IJ clean dry and intact CARDIOVASCULAR: Distant heart sounds. RRR. S1, S2. No S4. Without murmur RESPIRATORY: Orally intubated on mechanical ventilation, Breath sounds equal bilaterally. Diminished breath sounds due to body habitus. GASTROINTESTINAL: Abdomen soft, obese, nontender. Severe central obesity MUSCULOSKELETAL: Extremities with trace to 1+ nonpitting bilateral lower extremity edema. NEUROLOGICAL: Intubated and paralyzed on the ventilator. Date of Insertion: Apr 02, 2016 Line: Central Venous Catheter Side: Right Location: Internal, Jugular A/P Assessment and Plan NEURO/Psych: -Continue with sedation ( Diprivan, Fentanyl and Versed) Nimbex drip currently at 1.5 mcg/kg per minute to maintain a [id number] 2/ 4 Daily sedation vacation on hold secondary to paralytic/oxygenation status. Acetaminophen for fever RESP: Acute respiratory failure Obstructive sleep apnea Obesity hypoventilation syndrome Staph aureus pneumonia Left lower lobe pulmonary nodule of 11 millimeters - follow up CT chest 3 months without contrast recommended Pulmonary edema On PRVC/AC with RR 15, TV 550, IT: 1.65, PEEP: 15 and FIO2 100%, decrease FIO2 as luna. Ventilator bundle Bronchodilator therapy every 4 hours and as needed -Emergently intubated and placed on mechanical ventilation 03/26/16 Continue Flolan today at 50 ng/kg per minute for oxygenation. -Solu-Medrol 40 mg IV q12 CTA chest revealed no PE. Possible pulmonary arterial hypertension. 11 mm pulmonary nodule. Bilateral lower lobe air bronchograms Paralyzed with Nimbex drip 04/01 CV: -Monitor HR and BP keep MAP>65mmHg -2-D echo 03/26 EF 60%. No regional wall motion abnormality. Mild . Mild MR/ TR GI: Constipation Hypoalbuminemia -Tube feeds with Glucerna 1.5@45ml/hr, - IV Protonix 40 mg IV daily -Colace, senna for bowel regimen /FEN: Hyper-magnesium -Monitor renal function, I/O's, electrolytes replacement per protocol. -On Lasix 20mg BID ID/DERM: Staph aureus pneumonia -Continue with abx per ID(Levaquin, Flagyl, Diflucan) will castanon culture ( Blood , sputum, urine) Discontinued vancomycin and aztreonam 03/31 - Blood cultures 04/02 - no growth - Sputum 04/02 -Staph Aureus -03/30 sputum culture with staph aureus - 03/30 - urine - no growth - 03/30 - blood cultures 2 - negative -03/27 Sputum culture with staph aureus -03/26 03/07 bottles coag negative staph probable contamination HEME: Leukocytosis -Monitor CBC, CMP, coags ENDO: Diabetes mellitus Hyperglycemia critical illness On SSI ( high scale), increase Levemir 24u Q12 MSK: Morbid obesity Weight loss encouraged. PT evaluate and treat PROPH: -Bilateral lower extremity SCDs. IV Protonix 40 mg daily. Lovenox 40 mg sq BID LINES: -Right IJ CVL in right radial art line 04/02- present -LIJ central line and L radial art line in place 03/26 - 04/02. Palliative care eval to asses with goals of care Prognosis guarded, spoke to patient's brother Farhat and updated him on his condition.Discussed code status as well and he confirmed full code status. Critical Care: The total critical care time was 35 minutes. Time to perform other separately billable procedures was not included in the critical care time. Mellissa,Alaa MD Apr 08, 2016 08:14
[2016-04-08] MEDS: fentaNYL 2,500 MCG/NS 250 ML IV SCH ×2 (10:03→18:03)
[2016-04-08] MEDS: MIDAZOLAM 100 MG/ML INJ 100 ML IV SCH ×2 (10:03→18:03)
[2016-04-08 10:24] LABS: BLOOD, URINE NEG (NEG); COMMENT (UR) CULT NOT INDICATED; CULTURE IF INDICATED CULT NOT INDICATED; GLUCOSE,URINE NEG (NEG); KETONE, URINE NEG (NEG); MUCUS URINE FEW /lpf (OCC); NITRITE,URINE NEG (NEG); PH, URINE 6.5 (5.0-8.5); URINE COLOR YELLOW (YELLW/STRAW)
[2016-04-08 10:27] LABS: HYALINE CAST, URINE 1 /lpf (RARE)
--- NOTE | 2016-04-08 12:07 | HHI.IDPN ---
Note Infectious Disease Note ID COVERAGE: Notes reviewed D/W RN Temps ok On Rotoprone bed. Multiple sedation and nimbex FiO2 at 100%, 15 PEEP. Antibiotics Levaquin Flagyl Diflucan Lines TLC - 04/02 Past Medical History Reviewed Allergies: Coded Allergies: Penicillin (Verified Allergy, Severe, Swelling, 03/24/16) Tetanus Toxoid (Verified Allergy, Unknown, Swelling, 03/24/16) Objective Vital Signs Date Time Temp Pulse Resp B/P Pulse Ox O2 Delivery O2 Flow Rate FiO2 04/08/16 11:31 88 100 04/08/16 10:00 72 04/08/16 08:08 88 100 04/08/16 08:00 85 04/08/16 08:00 100 04/08/16 08:00 99.0 85 15 138/81 88 04/08/16 06:00 64 04/08/16 04:18 90 100 04/08/16 04:00 64 04/08/16 04:00 100 04/08/16 04:00 100.2 64 15 102/54 90 04/08/16 02:00 66 04/08/16 00:00 100 04/08/16 00:00 100.0 67 15 101/54 88 04/08/16 00:00 67 04/07/16 23:55 92 100 04/07/16 22:00 65 04/07/16 20:00 66 04/07/16 20:00 99.1 66 15 114/66 92 04/07/16 20:00 100 04/07/16 19:52 92 100 04/07/16 18:00 64 04/07/16 16:00 100 04/07/16 16:00 98.4 73 15 91/54 89 04/07/16 16:00 71 04/07/16 15:42 89 100 04/07/16 12:00 98.1 79 15 135/63 88 04/07/16 12:00 100 04/07/16 12:00 68 . 04/07/16 04/07/16 04/08/16 15:00 23:00 07:00 Intake Total 1819 ml 1804 ml 1305 ml Output Total 1550 ml 2925 ml 1125 ml Balance 269 ml -1121 ml 180 ml IV Total 1109 ml 1233 ml 976 ml Tube Feeding 350 ml 331 ml 329 ml Tube Irrigant 60 ml Other 360 ml 180 ml Output Urine Total 1550 ml 2625 ml 975 ml Stool Total 300 ml 150 ml Laboratory Tests Test 04/07/16 04/08/16 04:28 06:00 White Blood Count 20.8 TH/MM3 21.0 TH/MM3 Red Blood Count 4.96 MIL/MM3 4.87 MIL/MM3 Hemoglobin 13.6 GM/DL 13.2 GM/DL Hematocrit 42.0 % 41.4 % Mean Corpuscular Volume 84.7 FL 85.2 FL Mean Corpuscular Hemoglobin 27.5 PG 27.2 PG Mean Corpuscular Hemoglobin 32.4 % 31.9 % Concent Red Cell Distribution Width 15.0 % 14.9 % Platelet Count 302 TH/MM3 296 TH/MM3 Mean Platelet Volume 9.2 FL 9.9 FL Neutrophils (%) (Auto) 92.7 % 92.5 % Lymphocytes (%) (Auto) 2.9 % 2.8 % Monocytes (%) (Auto) 4.2 % 4.5 % Eosinophils (%) (Auto) 0.0 % 0.0 % Basophils (%) (Auto) 0.2 % 0.2 % Neutrophils # (Auto) 19.3 TH/MM3 19.4 TH/MM3 Lymphocytes # (Auto) 0.6 TH/MM3 0.6 TH/MM3 Monocytes # (Auto) 0.9 TH/MM3 1.0 TH/MM3 Eosinophils # (Auto) 0.0 TH/MM3 0.0 TH/MM3 Basophils # (Auto) 0.0 TH/MM3 0.0 TH/MM3 CBC Comment AUTO DIFF DIFF FINAL Differential Total Cells 100 Counted Neutrophils % (Manual) 84 % Band Neutrophils % 5 % Lymphocytes % 6 % Monocytes % 5 % Neutrophils # (Manual) 18.5 TH/MM3 Differential Comment FINAL DIFF MANUAL Platelet Estimate NORMAL Platelet Morphology Comment NORMAL Red Cell Morphology Comment NORMAL Laboratory Tests Test 04/07/16 04/08/16 04:28 06:00 Sodium Level 141 MEQ/L 139 MEQ/L Potassium Level 4.4 MEQ/L 4.5 MEQ/L Chloride Level 101 MEQ/L 96 MEQ/L Carbon Dioxide Level 35.9 MEQ/L 36.3 MEQ/L Anion Gap 4 MEQ/L 7 MEQ/L Blood Urea Nitrogen 40 MG/DL 38 MG/DL Creatinine 0.76 MG/DL 0.73 MG/DL Estimat Glomerular Filtration 109 ML/MIN 114 ML/MIN Rate Random Glucose 170 MG/DL 252 MG/DL Calcium Level 9.1 MG/DL 8.8 MG/DL Total Bilirubin 0.5 MG/DL 0.5 MG/DL Aspartate Amino Transf 14 U/L 7 U/L (AST/SGOT) Alanine Aminotransferase 31 U/L 27 U/L (ALT/SGPT) Alkaline Phosphatase 62 U/L 60 U/L Total Protein 7.1 GM/DL 6.7 GM/DL Albumin 2.8 GM/DL 2.8 GM/DL Phosphorus Level 3.2 MG/DL Magnesium Level 2.6 MG/DL Microbiology Date/Time Procedure Status Source Growth 04/08/16 10:30 Aerobic Blood Culture Received Blood Peripheral Pending 04/08/16 10:30 Anaerobic Blood Culture Received Blood Peripheral Pending 04/08/16 10:37 Aerobic Blood Culture Received Blood Peripheral Pending 04/08/16 10:37 Anaerobic Blood Culture Received Blood Peripheral Pending Imaging Chest X-Ray 04/05/16599 Signed Impressions: Service Date/Time: April 03:25 - CONCLUSION: 1. Improved basilar consolidation. Residual versus developing right midlung consolidation. 2. Small bilateral pleural effusions are suspected. 3. No change cardiomegaly or lines/tubes. Ubaldo Ortiz MD Chest X-Ray 04/04/16599 Signed Impressions: Service Date/Time: Monday, April 04, 2016 04:44 - CONCLUSION: Worsening bilateral airspace opacities, especially left perihilar. Ubaldo Ortiz MD Chest X-Ray 04/04/16599 Signed Impressions: Service Date/Time: Monday, April 04, 2016 04:44 - CONCLUSION: Worsening bilateral airspace opacities, especially left perihilar. Ubaldo Ortiz MD Chest X-Ray 04/03/16599 Signed Impressions: Service Date/Time: Sunday, April 03, 2016 00:16 - CONCLUSION: Potential developing pneumonia in the right upper lobe. Bibasilar atelectasis modestly worse in the interim. Ubaldo Ortiz MD Chest X-Ray 04/03/16599 Signed Impressions: Service Date/Time: Sunday, April 03, 2016 00:16 - CONCLUSION: Potential developing pneumonia in the right upper lobe. Bibasilar atelectasis modestly worse in the interim. Ubaldo Ortiz MD Chest X-Ray 04/02/16 0925 Signed Impressions: Service Date/Time: Saturday, April 02, 2016 09:22 - CONCLUSION: Place a right jugular catheter terminates superior vena cava with no pneumothorax. Bernard Hartman MD Chest X-Ray 04/01/16 0000 Signed Impressions: Service Date/Time: Friday, April 01, 2016 03:30 - CONCLUSION: No significant change has occurred. Henrry Andrea MD Abdomen X-Ray 03/31/16 0000 Signed Impressions: Service Date/Time: Thursday, March 31, 2016 09:58 - CONCLUSION: Benign abdomen. Rodrigo Martinez MD Chest X-Ray 03/30/16 0600 Signed Impressions: Service Date/Time: Wednesday, March 30, 2016 03:49 - CONCLUSION: No significant change has occurred. Henrry Andrea MD GENERAL: Patient on rotabed. HEENT: Unable to fully assess. LUNGS: Coarse rhonchi. CARDIAC: Regular rate and rhythm. ABDOMEN: Soft. EXTREMITIES: No CC trace edema. SKIN: No rash. Assessment & Plan IMPRESSION Worsening leukocytosis, ?new infection - has been on adequate Abx for pathogens isolated - ?new HCAP, has increased O2 requirement though not much change on CXR ( though poor CXR due to his size) - UA ok - line placed 03/26 - no diarrhea - ?fungal, has been on steroids Pneumonia, C/S MSSA Respiratory failure, Vent dependent. High PEEP. Morbid obesity Allergy to PCN, swelling Fevers, intermittent. Low grade fever. Elevated WBC. RECOMMENDATION Continue Levaquin and Diflucan Continue Flagyl for now Vancomycin dose. Follow CBC Monitor new blood cultures. Monitor progress Addison Augustine MD Apr 08, 2016 12:07
[2016-04-08] MEDS ORDERED: VANCOMYCIN INJ 1,750 MG in SODIUM CHLORID 0.9% 500 ML INJ 500 ML IV ONE (13:00)
[2016-04-08] MEDS: LEVOFLOXACIN 750 MG PREMIX INJ 150 ML IV SCH (13:10)
--- NOTE | 2016-04-08 16:15 | HHI.PR ---
Subjective Remarks 50 YO morbidly obese male with VDRF, on Rotoprone On APRV, Fi02 100% Sedated with Nimbex Low grade fever Objective Vital Signs Vital Signs Date Time Temp Pulse Resp B/P Pulse Ox O2 Delivery O2 Flow Rate FiO2 04/08/16 14:00 66 04/08/16 12:00 100 04/08/16 12:00 99.1 77 15 90/50 91 04/08/16 12:00 77 04/08/16 11:31 88 100 04/08/16 10:00 72 04/08/16 08:08 88 100 04/08/16 08:00 85 04/08/16 08:00 100 04/08/16 08:00 99.0 85 15 138/81 88 04/08/16 06:00 64 04/08/16 04:18 90 100 04/08/16 04:00 64 04/08/16 04:00 100 04/08/16 04:00 100.2 64 15 102/54 90 04/08/16 02:00 66 04/08/16 00:00 100 04/08/16 00:00 100.0 67 15 101/54 88 04/08/16 00:00 67 04/07/16 23:55 92 100 04/07/16 22:00 65 04/07/16 20:00 66 04/07/16 20:00 99.1 66 15 114/66 92 04/07/16 20:00 100 04/07/16 19:52 92 100 04/07/16 18:00 64 I/O 04/07/16 04/07/16 04/07/16 04/08/16 04/08/16 04/08/16 07:00 15:00 23:00 07:00 15:00 23:00 Intake Total 1326 ml 1819 ml 1804 ml 1305 ml 2025 ml Output Total 1000 ml 1550 ml 2925 ml 1125 ml 2100 ml Balance 326 ml 269 ml -1121 ml 180 ml -75 ml IV Total 900 ml 1109 ml 1233 ml 976 ml 1316 ml Tube Feeding 306 ml 350 ml 331 ml 329 ml 409 ml Tube Irrigant 120 ml 60 ml Other 360 ml 180 ml 300 ml Output Urine Total 900 ml 1550 ml 2625 ml 975 ml 1900 ml Stool Total 100 ml 300 ml 150 ml 200 ml Result Diagram: 04/08/16 0604/08/16 06 Objective Remarks GENERAL: Morbidly obese male on Rotoprone SKIN: Warm and dry. HEAD: Normocephalic. EYES: No scleral icterus. No injection or drainage. NECK: Supple, trachea midline. No JVD or lymphadenopathy. CARDIOVASCULAR: Regular rate and rhythm without murmurs, gallops, or rubs. RESPIRATORY: Breath sounds equal bilaterally. No accessory muscle use. GASTROINTESTINAL: Abdomen soft, non-tender, nondistended. MUSCULOSKELETAL: No cyanosis, or edema. BACK: Nontender without obvious deformity. No CVA tenderness. A/P Assessment and Plan VDRF Profound Hypoxia ARDS Pneumonia JACOB PLAN: Cont Vent support On APRV, Fi02 100% Nimbex drip cont Abx Dr Perry will FU in AM. Musa Key MD Apr 08, 2016 16:15
[2016-04-08] MEDS: FLUCONAZOLE 400 MG PREMIX BAG 200 ML IV SCH (16:42)
[2016-04-08] MEDS ORDERED: SODIUM CHLORID 0.9% 500 ML INJ 500 ML IV ONE (17:15)
[2016-04-08] MEDS: PANTOPRAZOLE SODIUM 40 MG VIAL IV PUSH SCH (17:20)
[2016-04-09] VITALS (19 sets, daily range): BP systolic 111–140; BP diastolic 58–96; PULSE 64–81; RESP 15; TEMP 97.8–99.7; O2SAT 90–95
[2016-04-09] MEDS: INSULIN NovoLIN REGULAR SUPPLEMENTAL SCALE SQ SCH ×5 (00:14→23:55)
[2016-04-09] MEDS: metroNIDAZOLE 500 MG INJ 100 ML IV SCH ×4 (00:14→23:27)
[2016-04-09] MEDS: PROPOFOL 1000 MG/100 ML IV SCH ×9 (01:33→23:27)
[2016-04-09] MEDS: EPOPROSTENOL NEB SOLUTION 50 NG/KG/MIN 100 ML NEB SCH ×8 (01:33→20:57)
[2016-04-09] MEDS: CISATRACURIUM INJ 100 MG in SODIUM CHLOR 0.9% 250 ML INJ 240 ML IV SCH ×7 (01:34→23:27)
[2016-04-09] MEDS: fentaNYL 2,500 MCG/NS 250 ML IV SCH ×3 (01:37→23:55)
[2016-04-09] MEDS: RESP: ALBUTEROL 2.5 MG/IPRATROPIUM 0.5 MG NEB (PRN) NEB (03:57)
[2016-04-09] MEDS: ENOXAPARIN SODIUM 40 MG/0.4 ML SYRINGE SQ SCH ×2 (05:13→17:20)
[2016-04-09] MEDS: METOCLOPRAMIDE HCL 10 MG/2 ML VIAL IV PUSH SCH ×3 (05:14→22:02)
[2016-04-09 06:19] LABS: ALT (GPT) 26 U/L (12-78); ANION GAP 6 MEQ/L (5-15); AST (GOT) 7 U/L (15-37); BICARBONATE 34.7 MEQ/L (21.0-32.0); BLOOD UREA NITROGEN 37 MG/DL (7-18); CHLORIDE 98 MEQ/L (98-107); GLOMERULAR FILTRATION RATE 123 ML/MIN (>89); POTASSIUM 4.5 MEQ/L (3.5-5.1); SODIUM (NA) 139 MEQ/L (136-145)
[2016-04-09 06:22] LABS: ALKALINE PHOSPHATASE 62 U/L (45-117); TOTAL BILIRUBIN ADULT 0.6 MG/DL (0.2-1.0)
[2016-04-09] MEDS: DOCUSATE SODIUM 100 MG/10 ML UDC PO SCH ×2 (07:36→20:47)
[2016-04-09] MEDS: FUROSEMIDE 20 MG/2 ML VIAL IV PUSH SCH ×2 (07:36→17:20)
[2016-04-09] MEDS: methylPREDNISolone SOD SUCC 40 MG/1 ML VIAL IV PUSH SCH ×2 (07:36→20:47)
[2016-04-09] MEDS: SENNOSIDES SYRUP 8.8 MG/5 ML CUP PO/TUBE SCH ×2 (07:36→20:47)
[2016-04-09] MEDS: INSULIN DETEMIR 100 UNITS/ML VIAL SQ SCH ×2 (07:37→20:47)
[2016-04-09] MEDS: BETAMETHASONE/CLOTRIMAZOLE CREAM 15 GM TOPICAL SCH ×2 (07:45→20:48)
[2016-04-09] MEDS: ARTIFICIAL TEARS OPTH OINT 3.5 APPLIC/3.5 GM TUBO EACH EYE SCH ×2 (07:45→20:48)
[2016-04-09] MEDS: SODIUM CHLORIDE 0.9% FLUSH 5 ML FLUSH IVF SCH (07:45)
[2016-04-09] MEDS: CHLORHEXIDINE 0.12% (ORAL KIT) 15 ML CUP MT SCH ×2 (07:46→20:10)
[2016-04-09] MEDS: LACTOBACILLUS ACIDOPHILUS TAB PO SCH ×3 (07:50→17:20)
[2016-04-09] MEDS: BENEPROTEIN POWDER 1 PACK G-TUBE SCH ×3 (07:51→17:35)
[2016-04-09 09:00] LABS: WHITE BLOOD COUNT 21.2 TH/MM3 (4.0-11.0)
[2016-04-09 09:01] LABS: AUTOMATED NEUTROPHIL # 19.2 TH/MM3 (1.8-7.7); BASOPHIL # 0.1 TH/MM3 (0-0.2); BASOPHIL % 0.5 % (0.0-2.0); HEMO FLAGS AUTO DIFF; LYMPH % 3.8 % (9.0-44.0); LYMPHOCYTE # 0.8 TH/MM3 (1.0-4.8); MEAN CELL VOLUME 84.8 FL (80.0-100.0); MEAN CORPUSCULAR HEMOGLOBIN 26.9 PG (27.0-34.0); MEAN CORPUSCULAR HGB CONC 31.7 % (32.0-36.0); MONO % 5.1 % (0.0-8.0); NEUT % 90.6 % (16.0-70.0); PLATELET COUNT 287 TH/MM3 (150-450); RED BLOOD COUNT 4.96 MIL/MM3 (4.50-5.90)
[2016-04-09 09:34] LABS: PLATELET ESTIMATE SMEAR NORMAL (NORMAL); PLATELET MORPHOLOGY ENLARGED (NORMAL); SCAN/DIFF AUTO DIFF CONFIRMED
[2016-04-09] MEDS ORDERED: Vancomycin Consult Pharmacy 1 EA OTHER SCH (10:30)
--- NOTE | 2016-04-09 10:32 | HHI.CCPN ---
Subjective Remarks/Hospital Course Patient is a 50 years old obese male with past medical history significant for undiagnosed sleep apnea, super morbid obesity, type 2 diabetes was brought to the emergency department on 03/24/16 after feeling light headed and dizzy. On presentation here was found to be hypoxemic and ABG showed severe hypoxemia and hypercarbia. For a recent driving physical he was diagnosed with low oxygen saturations. Patient's oxygen saturation the ED was in the low 80s, which was confirmed on ABG with a oxygen saturation of 78% and PO2 of 46. CTA negative for PE. Patient was initiated on BiPAP therapy with consult to pulmonary Dr. Crane. His oxygenation improved but he continued to be hypercapnic. Today a.m. on nasal cannula his pH was 7.26 and PCO2 was increased at 99, patient was somnolent was placed back on BiPAP and repeat ABG at noon showed pH 7.26 PCO2 98 and pO2 70. This was on 16 BiPAP with FiO2 50%. Critical care was consulted. On my evaluation patient is somnolent but wakes up easily. I reduced the PEEP on BiPAP from 12-7 to facilitate better ventilation. A repeat ANG showed only minimal improvement, so decision made to intubate patient. Glidescope with #4 blade was used. Only propofol was used for induction. Initially I had a Grade 1-2 view, but I was unable to pass tube through the vocal cord to trachea in two attempts. Tube slipped out of Laryngeal opening both times. Dr Garrett intubated patient after NM paralysis with succinylcholine. Post intubation ABG showed improvement in hypercapnia and oxygenation. 03/27/16: Patient remains intubated heavily sedated with propofol and fentanyl. Remained severely hypoxemic on 100% FiO2, PEEP12, chest x-ray shows bibasilar infiltrates. Flagyl added. We'll give 1 dose of vancomycin-Adjust antibiotics according to cultures. Patient super morbid obesity may prevent Prone therapy 03/28: Remains hypoxic but ABG shows marginal improvement in oxygenation. WBC increasing 20.1 today. Start vancomycin scheduled. 03/29: Oxygenation is slightly improved. FiO2 reduced to 50% today. Chest x- ray remains unchanged. On sedation hold patient does wake up and follow commands. WBC count remains at 20 03/30 No acute events overnight. Sedated with Diprivan and Fentanyl. Had T: 100.1 at 4 am. WBC trending down 15.9 today from 20. 03/31 Patient remains sedated with Diprivan, Fentanyl and intubated. Tmax 100.1. Patient required increase O2 overnight now on ACV with PEEP: 12 and FIO2 70%. 04/01: Tmax 99.7. No bowel movement since admission. Patient has bowel sounds. Arousable on the ventilator. We'll attempt prone the patient paralyzed to increase oxygenation status. 04/02: MAXIMUM TEMPERATURE 100.9. Currently 97.7. 5 10 cc stools overnight. Placed on Roto prone yesterday. Saturations currently 94% on Flolan. Diuresed overnight. Creatinine still within normal limits. 04/03: Tmax 101. Currently 99.1. Positive BM. Did not tolerate not being unprone this AM. Saturations much improved prone. Tolerating tube feeding. Subjective 04/04: Tmax 100.8. Currently 98.8. +2 L past 24 hours. Attempt to on prone today. Positive BM. C. difficile negative. Remains paralyzed. 04/05: Remains sedated, orally intubated on neuromuscular blockade on mechanical ventilation. Remains on Rota prone bed. On insulin drip. 04/06: Remains sedated, orally intubated on neuromuscular blockade, on mechanical ventilation. Remains on Rota prone bed. Insulin drip continues. 04/07 Patient remains on Rotoprone bed sedated with Diprivan, Versed, Fentanyl in addition patient is on Nimbex. Afebrile. On Insulin drip 5u/hr. 04/08 Patient remains sedated and intubated and on Nimbex. Off insulin drip. On PRVC/AC with RR 15, TV 550, IT: 1.65, PEEP: 15 and FIO2 100%. T: 100.2 at 4 am. 04/09 Patient is sedated, intubated and remains on neuromuscular blockade. Vent setting unchanged. afebrile. Objective Vital Signs Date Time Temp Pulse Resp B/P Pulse Ox O2 Delivery O2 Flow Rate FiO2 04/09/16 08:06 93 100 04/09/16 08:00 67 04/09/16 08:00 97.8 15 138/96 Intake and Output 04/08/16 04/08/16 04/09/16 08:00 16:00 00:00 Intake Total 1305 ml 2025 ml 2676 ml Output Total 1125 ml 2100 ml 2475 ml Balance 180 ml -75 ml 201 ml Result Diagram: 04/09/16 0828 04/09/16 0530 Other Results Laboratory Tests Test 04/09/16 04/09/16 05:30 08:28 Sodium Level 139 MEQ/L Potassium Level 4.5 MEQ/L Chloride Level 98 MEQ/L Carbon Dioxide Level 34.7 MEQ/L Anion Gap 6 MEQ/L Blood Urea Nitrogen 37 MG/DL Creatinine 0.68 MG/DL Estimat Glomerular Filtration 123 ML/MIN Rate Random Glucose 294 MG/DL Calcium Level 8.8 MG/DL Total Bilirubin 0.6 MG/DL Aspartate Amino Transf 7 U/L (AST/SGOT) Alanine Aminotransferase 26 U/L (ALT/SGPT) Alkaline Phosphatase 62 U/L Total Protein 6.6 GM/DL Albumin 2.8 GM/DL White Blood Count 21.2 TH/MM3 Red Blood Count 4.96 MIL/MM3 Hemoglobin 13.3 GM/DL Hematocrit 42.0 % Mean Corpuscular Volume 84.8 FL Mean Corpuscular Hemoglobin 26.9 PG Mean Corpuscular Hemoglobin 31.7 % Concent Red Cell Distribution Width 15.0 % Platelet Count 287 TH/MM3 Mean Platelet Volume 9.4 FL Neutrophils (%) (Auto) 90.6 % Lymphocytes (%) (Auto) 3.8 % Monocytes (%) (Auto) 5.1 % Eosinophils (%) (Auto) 0.0 % Basophils (%) (Auto) 0.5 % Neutrophils # (Auto) 19.2 TH/MM3 Lymphocytes # (Auto) 0.8 TH/MM3 Monocytes # (Auto) 1.1 TH/MM3 Eosinophils # (Auto) 0.0 TH/MM3 Basophils # (Auto) 0.1 TH/MM3 CBC Comment AUTO DIFF Differential Comment AUTO DIFF CONFIRMED Platelet Estimate NORMAL Platelet Morphology Comment ENLARGED Red Cell Morphology Comment NORMAL Imaging Last Impressions Chest X-Ray 04/05/16 0600 Signed Impressions: Service Date/Time: April 03:25 - CONCLUSION: 1. Improved basilar consolidation. Residual versus developing right midlung consolidation. 2. Small bilateral pleural effusions are suspected. 3. No change cardiomegaly or lines/tubes. Ubaldo Ortiz MD Abdomen X-Ray 03/31/16 0000 Signed Impressions: Service Date/Time: Thursday, March 31, 2016 09:58 - CONCLUSION: Benign abdomen. Rodrigo Martinez MD Chest CT 03/28/16 0836 Signed Impressions: Service Date/Time: Monday, March 28, 2016 09:57 - CONCLUSION: Development areas of air bronchograms and consolidation more prominent in the right and left posterior basilar segments of the lower lobes. ET tube above the chanelle. Bernard Hartman MD CT Angiography 03/24/16 1121 Signed Impressions: Service Date/Time: Thursday, March 24, 2016 12:47 - CONCLUSION: 1. There is respiratory motion artifact but no PE is identified through most of the segmental level pulmonary arteries. 2. Mildly enlarged main pulmonary artery may indicate pulmonary arterial hypertension. 3. 11 mm left lower lobe noncalcified pulmonary nodule. Suggest correlation with any prior imaging studies that could confirm longer-term stability. If none are available consider short-term followup noncontrast chest CT in approximately 3 months. Ubaldo Rodas MD Objective Remarks GENERAL: 50-year-old male, critically ill. Orally intubated on mechanical ventilation, on sedation and neuromuscular blockade SKIN: Evidence of seborrheic dermatitis of the face HEAD: Atraumatic. Normocephalic. EYES: Pupils equal round and slightly reactive about 3 millimeters bilaterally. ENT: NG tube in place. NECK: Very large neck. Trachea midline. Right IJ clean dry and intact CARDIOVASCULAR: Distant heart sounds. RRR. S1, S2. No S4. Without murmur RESPIRATORY: Orally intubated on mechanical ventilation, Breath sounds equal bilaterally. Diminished breath sounds due to body habitus. GASTROINTESTINAL: Abdomen soft, obese, nontender. Severe central obesity MUSCULOSKELETAL: Extremities with trace to 1+ nonpitting bilateral lower extremity edema. NEUROLOGICAL: Intubated and paralyzed on the ventilator. Date of Insertion: Apr 02, 2016 Line: Central Venous Catheter Side: Right Location: Internal, Jugular A/P Assessment and Plan NEURO/Psych: -Continue with sedation ( Diprivan, Fentanyl and Versed) -On Nimbex drip ,monitor [id number] Daily sedation vacation on hold secondary to paralytic/oxygenation status. Acetaminophen for fever RESP: Acute respiratory failure Obstructive sleep apnea Obesity hypoventilation syndrome Staph aureus pneumonia Left lower lobe pulmonary nodule of 11 millimeters - follow up CT chest 3 months without contrast recommended Pulmonary edema On PRVC/AC with RR 15, TV 550, IT: 1.65, PEEP: 15 and FIO2 100%, decrease FIO2 as luna. Ventilator bundle Bronchodilator therapy every 4 hours and as needed -Emergently intubated and placed on mechanical ventilation 03/26/16 Continue Flolan today at 50 ng/kg per minute for oxygenation. -Solu-Medrol 40 mg IV q12 CTA chest revealed no PE. Possible pulmonary arterial hypertension. 11 mm pulmonary nodule. Bilateral lower lobe air bronchograms Check CXR CV: -Monitor HR and BP keep MAP>65mmHg -2-D echo 03/26 EF 60%. No regional wall motion abnormality. Mild . Mild MR/ TR GI: Constipation Hypoalbuminemia -Tube feeds with Glucerna 1.5@45ml/hr, - IV Protonix 40 mg IV daily -Colace, senna for bowel regimen /FEN: -Monitor renal function, I/O's, electrolytes replacement per protocol. -On Lasix 20mg BID ID/DERM: Staph aureus pneumonia -Continue with abx per ID(Levaquin, Flagyl, Diflucan) given Vanco x 1 dose yesterday Pancultured 04/08 - Blood cultures 04/02 - no growth - Sputum 04/02 -Staph Aureus -03/30 sputum culture with staph aureus - 03/30 - urine - no growth - 03/30 - blood cultures 2 - negative -03/27 Sputum culture with staph aureus -03/26 03/07 bottles coag negative staph probable contamination HEME: Leukocytosis -Monitor CBC, CMP, coags ENDO: Diabetes mellitus Hyperglycemia critical illness On SSI ( high scale), increase Levemir 30u Q12 MSK: Morbid obesity Weight loss encouraged. PT evaluate and treat PROPH: -Bilateral lower extremity SCDs. IV Protonix 40 mg daily. Lovenox 40 mg sq BID LINES: -Right IJ CVL in right radial art line 04/02- present -LIJ central line and L radial art line in place 03/26 - 04/02. Palliative care eval to asses with goals of care Prognosis guarded, spoke to patient's brother Farhat and updated him on his condition.Discussed code status as well and he confirmed full code status. Critical Care: The total critical care time was 35 minutes. Time to perform other separately billable procedures was not included in the critical care time. Rob Malloy MD Apr 09, 2016 09:59
--- NOTE | 2016-04-09 10:37 | HHI.IDPN ---
Subjective Subjective Remarks Notes reviewed D/W RN Temps low grade yesterday morning, ok overnight On rotaprone bed, not tolerating supine position Still on 100% FiO2 On multiple sedation, flolan and nimbex Getting TF Good UO WBC remains high CXR still with extensive infiltrates eufemia Antibiotics Levaquin Flagyl Diflucan Got dose of Vanco 2/5 Lines TLC - 04/02 Past Medical History Reviewed Allergies: Coded Allergies: Penicillin (Verified Allergy, Severe, Swelling, 03/24/16) Tetanus Toxoid (Verified Allergy, Unknown, Swelling, 03/24/16) Objective . Vital Signs Date Time Temp Pulse Resp B/P Pulse Ox O2 Delivery O2 Flow Rate FiO2 04/09/16 08:06 93 100 04/09/16 08:00 67 04/09/16 08:00 97.8 70 15 138/96 91 04/09/16 08:00 100 04/09/16 06:00 69 04/09/16 04:00 92 100 04/09/16 04:00 100 04/09/16 04:00 64 04/09/16 04:00 98.8 64 15 128/73 93 04/09/16 02:00 64 04/09/16 01:15 92 100 04/09/16 00:00 100 04/09/16 00:00 99.7 70 15 140/77 94 04/09/16 00:00 70 04/08/16 22:00 66 04/08/16 20:24 92 100 04/08/16 20:00 100 04/08/16 20:00 99.0 66 15 123/90 90 04/08/16 20:00 66 04/08/16 18:00 64 04/08/16 16:00 100 04/08/16 16:00 66 04/08/16 16:00 98.6 66 15 88/50 91 04/08/16 14:00 66 04/08/16 12:00 100 04/08/16 12:00 99.1 77 15 90/50 91 04/08/16 12:00 77 04/08/16 11:31 88 100 04/08/16 04/08/16 04/09/16 15:00 23:00 07:00 Intake Total 2025 ml 2676 ml 1371 ml Output Total 2100 ml 2475 ml 850 ml Balance -75 ml 201 ml 521 ml IV Total 1316 ml 2250 ml 1038 ml Tube Feeding 409 ml 366 ml 333 ml Tube Irrigant 60 ml Other 300 ml Output Urine Total 1900 ml 2475 ml 850 ml Stool Total 200 ml 0 ml 0 ml . Laboratory Tests Test 04/08/16 04/09/16 06:00 08:28 White Blood Count 21.0 TH/MM3 21.2 TH/MM3 Red Blood Count 4.87 MIL/MM3 4.96 MIL/MM3 Hemoglobin 13.2 GM/DL 13.3 GM/DL Hematocrit 41.4 % 42.0 % Mean Corpuscular Volume 85.2 FL 84.8 FL Mean Corpuscular Hemoglobin 27.2 PG 26.9 PG Mean Corpuscular Hemoglobin 31.9 % 31.7 % Concent Red Cell Distribution Width 14.9 % 15.0 % Platelet Count 296 TH/MM3 287 TH/MM3 Mean Platelet Volume 9.9 FL 9.4 FL Neutrophils (%) (Auto) 92.5 % 90.6 % Lymphocytes (%) (Auto) 2.8 % 3.8 % Monocytes (%) (Auto) 4.5 % 5.1 % Eosinophils (%) (Auto) 0.0 % 0.0 % Basophils (%) (Auto) 0.2 % 0.5 % Neutrophils # (Auto) 19.4 TH/MM3 19.2 TH/MM3 Lymphocytes # (Auto) 0.6 TH/MM3 0.8 TH/MM3 Monocytes # (Auto) 1.0 TH/MM3 1.1 TH/MM3 Eosinophils # (Auto) 0.0 TH/MM3 0.0 TH/MM3 Basophils # (Auto) 0.0 TH/MM3 0.1 TH/MM3 CBC Comment DIFF FINAL AUTO DIFF Differential Comment AUTO DIFF CONFIRMED Platelet Estimate NORMAL Platelet Morphology Comment ENLARGED Red Cell Morphology Comment NORMAL Laboratory Tests Test 04/08/16 04/09/16 06:00 05:30 Sodium Level 139 MEQ/L 139 MEQ/L Potassium Level 4.5 MEQ/L 4.5 MEQ/L Chloride Level 96 MEQ/L 98 MEQ/L Carbon Dioxide Level 36.3 MEQ/L 34.7 MEQ/L Anion Gap 7 MEQ/L 6 MEQ/L Blood Urea Nitrogen 38 MG/DL 37 MG/DL Creatinine 0.73 MG/DL 0.68 MG/DL Estimat Glomerular Filtration 114 ML/MIN 123 ML/MIN Rate Random Glucose 252 MG/DL 294 MG/DL Calcium Level 8.8 MG/DL 8.8 MG/DL Phosphorus Level 3.2 MG/DL Magnesium Level 2.6 MG/DL Total Bilirubin 0.5 MG/DL 0.6 MG/DL Aspartate Amino Transf 7 U/L 7 U/L (AST/SGOT) Alanine Aminotransferase 27 U/L 26 U/L (ALT/SGPT) Alkaline Phosphatase 60 U/L 62 U/L Total Protein 6.7 GM/DL 6.6 GM/DL Albumin 2.8 GM/DL 2.8 GM/DL Microbiology Date/Time Procedure Status Source Growth 04/08/16 10:30 Aerobic Blood Culture Received Blood Peripheral Pending 04/08/16 10:30 Anaerobic Blood Culture Received Blood Peripheral Pending 04/08/16 10:37 Aerobic Blood Culture Received Blood Peripheral Pending 04/08/16 10:37 Anaerobic Blood Culture Received Blood Peripheral Pending 04/08/16 22:30 Gram Stain - Final Resulted Sputum Endotracheal 04/08/16 22:30 Sputum Culture Resulted Sputum Endotracheal Pending Imaging Chest X-Ray 04/05/16599 Signed Impressions: Service Date/Time: April 03:25 - CONCLUSION: 1. Improved basilar consolidation. Residual versus developing right midlung consolidation. 2. Small bilateral pleural effusions are suspected. 3. No change cardiomegaly or lines/tubes. Ubaldo Ortiz MD Chest X-Ray 04/04/16599 Signed Impressions: Service Date/Time: Monday, April 04, 2016 04:44 - CONCLUSION: Worsening bilateral airspace opacities, especially left perihilar. Ubaldo Ortzi MD Chest X-Ray 04/04/16599 Signed Impressions: Service Date/Time: Monday, April 04, 2016 04:44 - CONCLUSION: Worsening bilateral airspace opacities, especially left perihilar. Ubaldo Ortiz MD Chest X-Ray 04/03/16599 Signed Impressions: Service Date/Time: Sunday, April 03, 2016 00:16 - CONCLUSION: Potential developing pneumonia in the right upper lobe. Bibasilar atelectasis modestly worse in the interim. Ubaldo Ortiz MD Chest X-Ray 04/03/16599 Signed Impressions: Service Date/Time: Sunday, April 03, 2016 00:16 - CONCLUSION: Potential developing pneumonia in the right upper lobe. Bibasilar atelectasis modestly worse in the interim. Ubaldo Ortiz MD Chest X-Ray 04/02/16 0925 Signed Impressions: Service Date/Time: Saturday, April 02, 2016 09:22 - CONCLUSION: Place a right jugular catheter terminates superior vena cava with no pneumothorax. Bernard Hartman MD Chest X-Ray 04/01/16 0000 Signed Impressions: Service Date/Time: Friday, April 01, 2016 03:30 - CONCLUSION: No significant change has occurred. Henrry Andrea MD Abdomen X-Ray 03/31/16 0000 Signed Impressions: Service Date/Time: Thursday, March 31, 2016 09:58 - CONCLUSION: Benign abdomen. Rodrigo Martinez MD Chest X-Ray 03/30/16 0600 Signed Impressions: Service Date/Time: Wednesday, March 30, 2016 03:49 - CONCLUSION: No significant change has occurred. Henrry Andrea MD Physical Exam GENERAL: Morbidly obese, sedated and on paralytics, on the vent, He is on rotaprone bed, currently supine SKIN: Cool skin, no cyanosis FACE: Edematous, ET in place CHEST: Coarse BS bilaterally CARDIAC: regular, no murmur ABDOMEN: soft, obese, (+) BS : Becker in place MUSCULOSKELETAL: Extremities without clubbing, cyanosis. Has pedal edema and edema hands NEUROLOGICAL: Sedated and paralyzed on the vent. PSYCH: Unable to assess Assessment & Plan Remarks IMPRESSION Worsening leukocytosis, ?new infection - has been on adequate Abx for pathogens isolated - ?new HCAP, has increased O2 requirement though not much change on CXR ( though poor CXR due to his size) - UA ok - line placed 03/26 - no diarrhea - ?fungal, has been on steroids Pneumonia, C/S MSSA JACOB Respiratory failure, still with very high O2 requirement - has extensive infiltrates Morbid obesity Allergy to PCN, swelling Fevers, intermittent RECOMMENDATION Continue Levaquin and Diflucan Continue Flagyl for now Follow new C/S Follow CBC Monitor progress On rotaprone bed Add Vancomycin D/W Elisha Archer MD Apr 09, 2016 10:30
--- NOTE | 2016-04-09 10:51 | RADRPT ---
EXAM DATE/TIME: 04/09/2016 09:12 [facility] COMPARISON: CHEST SINGLE AP, April 05, 2016, 3:25. INDICATIONS: Respiratory failure. MEDICAL HISTORY: Hypertension. SURGICAL HISTORY: None. ENCOUNTER: Subsequent ACUITY: 2 weeks PAIN SCORE: Non-responsive. LOCATION: Bilateral chest FINDINGS: The endotracheal tube has its tip 1 cm above the chanelle. This could be pulled back to 2 cm for more optimal position. The nasogastric tube is below the diaphragm. A right internal jugular central mathieu e has its tip in the superior vena cava. No pneumothorax is noted. Diffuse alveolar consolidation i s noted involving the left lung and right upper lung field consistent with pneumonia and/or pulmonary edema. Clinical correlation is recommended. CONCLUSION: 1. Diffuse alveolar consolidation of the left lung and right upper lung field consistent with pneumo kia and/or asymmetric pulmonary edema. Clinical correlation is recommended. 2. Endotracheal tube has its tip 1 cm above the chanelle. This could be pulled back 2 cm for more opt imal position. Farhat Montes MD on April 09, 2016 at 10:39 Board Certified Radiologist. This report was verified electronically.
--- NOTE | 2016-04-09 11:05 | PD.CONS ---
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 documented, it refers only to time spent today by the signer, or if indicated, combined time spent today by collaborating physician/nurse practitioner. Irais Josue Apr 09, 2016 11:05
[2016-04-09] MEDS: VANCOMYCIN 1,500 MG/NS 500 ML IV SCH ×2 (12:41)
[2016-04-09] MEDS: MIDAZOLAM 100 MG/ML INJ 100 ML IV SCH ×2 (13:32→22:02)
[2016-04-09] MEDS: LEVOFLOXACIN 750 MG PREMIX INJ 150 ML IV SCH (13:33)
[2016-04-09] MEDS: FLUCONAZOLE 400 MG PREMIX BAG 200 ML IV SCH (15:48)
[2016-04-09] MEDS: PANTOPRAZOLE SODIUM 40 MG VIAL IV PUSH SCH (17:20)
[2016-04-10] VITALS (20 sets, daily range): BP systolic 92–133; BP diastolic 51–79; PULSE 65–72; RESP 15; TEMP 97.7–99.6; O2SAT 92–96
[2016-04-10] MEDS: VANCOMYCIN 1,500 MG/NS 500 ML IV SCH ×4 (00:22→11:16)
[2016-04-10] MEDS: PROPOFOL 1000 MG/100 ML IV SCH ×10 (02:12→23:51)
[2016-04-10] MEDS: CISATRACURIUM INJ 100 MG in SODIUM CHLOR 0.9% 250 ML INJ 240 ML IV SCH ×6 (03:34→21:50)
[2016-04-10] MEDS: METOCLOPRAMIDE HCL 10 MG/2 ML VIAL IV PUSH SCH ×3 (04:53→21:50)
[2016-04-10] MEDS: EPOPROSTENOL NEB SOLUTION 50 NG/KG/MIN 100 ML NEB SCH ×4 (04:53→14:50)
[2016-04-10 05:43] LABS: AUTOMATED NEUTROPHIL # 19.8 TH/MM3 (1.8-7.7); BASOPHIL # 0.1 TH/MM3 (0-0.2); BASOPHIL % 0.5 % (0.0-2.0); EOSINOPHIL % 0.1 % (0.0-4.0); HEMO FLAGS DIFF FINAL; LYMPH % 2.8 % (9.0-44.0); LYMPHOCYTE # 0.6 TH/MM3 (1.0-4.8); MEAN CELL VOLUME 85.1 FL (80.0-100.0); MEAN CORPUSCULAR HEMOGLOBIN 26.8 PG (27.0-34.0); MEAN CORPUSCULAR HGB CONC 31.5 % (32.0-36.0); MONO % 4.3 % (0.0-8.0); NEUT % 92.3 % (16.0-70.0); PLATELET COUNT 277 TH/MM3 (150-450); RED BLOOD COUNT 4.82 MIL/MM3 (4.50-5.90); RED CELL DISTRIBUTION WIDTH 14.9 % (11.6-17.2); WHITE BLOOD COUNT 21.5 TH/MM3 (4.0-11.0)
[2016-04-10] MEDS: INSULIN NovoLIN REGULAR SUPPLEMENTAL SCALE SQ SCH ×4 (06:00→23:18)
[2016-04-10] MEDS: ENOXAPARIN SODIUM 40 MG/0.4 ML SYRINGE SQ SCH ×2 (06:03→17:35)
[2016-04-10 06:09] LABS: BICARBONATE 33.5 MEQ/L (21.0-32.0); POTASSIUM 4.4 MEQ/L (3.5-5.1)
[2016-04-10] MEDS: metroNIDAZOLE 500 MG INJ 100 ML IV SCH (07:44)
[2016-04-10] MEDS: MIDAZOLAM 100 MG/ML INJ 100 ML IV SCH ×2 (07:44→17:53)
[2016-04-10] MEDS: CHLORHEXIDINE 0.12% (ORAL KIT) 15 ML CUP MT SCH ×2 (07:46→19:40)
[2016-04-10] MEDS: BENEPROTEIN POWDER 1 PACK G-TUBE SCH ×3 (08:27→17:36)
[2016-04-10] MEDS: SENNOSIDES SYRUP 8.8 MG/5 ML CUP PO/TUBE SCH ×2 (08:27→20:01)
[2016-04-10] MEDS: DOCUSATE SODIUM 100 MG/10 ML UDC PO SCH ×2 (08:27→20:01)
[2016-04-10] MEDS: methylPREDNISolone SOD SUCC 40 MG/1 ML VIAL IV PUSH SCH ×2 (08:27→20:01)
[2016-04-10] MEDS: FUROSEMIDE 20 MG/2 ML VIAL IV PUSH SCH ×2 (08:27→17:35)
[2016-04-10] MEDS: LACTOBACILLUS ACIDOPHILUS TAB PO SCH ×3 (08:27→17:35)
[2016-04-10] MEDS: BETAMETHASONE/CLOTRIMAZOLE CREAM 15 GM TOPICAL SCH ×2 (08:28→20:02)
[2016-04-10] MEDS: SODIUM CHLORIDE 0.9% FLUSH 5 ML FLUSH IVF SCH (08:28)
[2016-04-10] MEDS: ARTIFICIAL TEARS OPTH OINT 3.5 APPLIC/3.5 GM TUBO EACH EYE SCH ×2 (08:28→20:02)
[2016-04-10] MEDS: INSULIN DETEMIR 100 UNITS/ML VIAL SQ SCH ×2 (08:29→20:00)
[2016-04-10] MEDS: fentaNYL 2,500 MCG/NS 250 ML IV SCH ×2 (09:28→19:33)
--- NOTE | 2016-04-10 10:30 | HHI.CCPN ---
Subjective Remarks/Hospital Course Patient is a 50 years old obese male with past medical history significant for undiagnosed sleep apnea, super morbid obesity, type 2 diabetes was brought to the emergency department on 03/24/16 after feeling light headed and dizzy. On presentation here was found to be hypoxemic and ABG showed severe hypoxemia and hypercarbia. For a recent driving physical he was diagnosed with low oxygen saturations. Patient's oxygen saturation the ED was in the low 80s, which was confirmed on ABG with a oxygen saturation of 78% and PO2 of 46. CTA negative for PE. Patient was initiated on BiPAP therapy with consult to pulmonary Dr. Crane. His oxygenation improved but he continued to be hypercapnic. Today a.m. on nasal cannula his pH was 7.26 and PCO2 was increased at 99, patient was somnolent was placed back on BiPAP and repeat ABG at noon showed pH 7.26 PCO2 98 and pO2 70. This was on 16 BiPAP with FiO2 50%. Critical care was consulted. On my evaluation patient is somnolent but wakes up easily. I reduced the PEEP on BiPAP from 12-7 to facilitate better ventilation. A repeat ANG showed only minimal improvement, so decision made to intubate patient. Glidescope with #4 blade was used. Only propofol was used for induction. Initially I had a Grade 1-2 view, but I was unable to pass tube through the vocal cord to trachea in two attempts. Tube slipped out of Laryngeal opening both times. Dr Garrett intubated patient after NM paralysis with succinylcholine. Post intubation ABG showed improvement in hypercapnia and oxygenation. 03/27/16: Patient remains intubated heavily sedated with propofol and fentanyl. Remained severely hypoxemic on 100% FiO2, PEEP12, chest x-ray shows bibasilar infiltrates. Flagyl added. We'll give 1 dose of vancomycin-Adjust antibiotics according to cultures. Patient super morbid obesity may prevent Prone therapy 03/28: Remains hypoxic but ABG shows marginal improvement in oxygenation. WBC increasing 20.1 today. Start vancomycin scheduled. 03/29: Oxygenation is slightly improved. FiO2 reduced to 50% today. Chest x- ray remains unchanged. On sedation hold patient does wake up and follow commands. WBC count remains at 20 03/30 No acute events overnight. Sedated with Diprivan and Fentanyl. Had T: 100.1 at 4 am. WBC trending down 15.9 today from 20. 03/31 Patient remains sedated with Diprivan, Fentanyl and intubated. Tmax 100.1. Patient required increase O2 overnight now on ACV with PEEP: 12 and FIO2 70%. 04/01: Tmax 99.7. No bowel movement since admission. Patient has bowel sounds. Arousable on the ventilator. We'll attempt prone the patient paralyzed to increase oxygenation status. 04/02: MAXIMUM TEMPERATURE 100.9. Currently 97.7. 5 10 cc stools overnight. Placed on Roto prone yesterday. Saturations currently 94% on Flolan. Diuresed overnight. Creatinine still within normal limits. 04/03: Tmax 101. Currently 99.1. Positive BM. Did not tolerate not being unprone this AM. Saturations much improved prone. Tolerating tube feeding. Subjective 04/04: Tmax 100.8. Currently 98.8. +2 L past 24 hours. Attempt to on prone today. Positive BM. C. difficile negative. Remains paralyzed. 04/05: Remains sedated, orally intubated on neuromuscular blockade on mechanical ventilation. Remains on Rota prone bed. On insulin drip. 04/06: Remains sedated, orally intubated on neuromuscular blockade, on mechanical ventilation. Remains on Rota prone bed. Insulin drip continues. 04/07 Patient remains on Rotoprone bed sedated with Diprivan, Versed, Fentanyl in addition patient is on Nimbex. Afebrile. On Insulin drip 5u/hr. 04/08 Patient remains sedated and intubated and on Nimbex. Off insulin drip. On PRVC/AC with RR 15, TV 550, IT: 1.65, PEEP: 15 and FIO2 100%. T: 100.2 at 4 am. 04/09 Patient is sedated, intubated and remains on neuromuscular blockade. Vent setting unchanged. afebrile. 04/10 Patient remains sedated and intubated and on Nimbex. On PRVC/AC, RR 15, TV 500, PEEP: 15, FIO2 90%, IT:1.65, on Flolan drip. Remains on Rotoprone bed. Objective Vital Signs Date Time Temp Pulse Resp B/P Pulse Ox O2 Delivery O2 Flow Rate FiO2 04/10/16 08:00 69 04/10/16 08:00 97.7 15 100/59 92 04/10/16 08:00 90 Intake and Output 04/09/16 04/09/16 04/10/16 08:00 16:00 00:00 Intake Total 1371 ml 2285 ml 2225 ml Output Total 850 ml 1750 ml 2400 ml Balance 521 ml 535 ml -175 ml Result Diagram: 04/10/16 0500 04/10/16 0500 Other Results Laboratory Tests Test 04/10/16 05:00 White Blood Count 21.5 TH/MM3 Red Blood Count 4.82 MIL/MM3 Hemoglobin 12.9 GM/DL Hematocrit 41.0 % Mean Corpuscular Volume 85.1 FL Mean Corpuscular Hemoglobin 26.8 PG Mean Corpuscular Hemoglobin 31.5 % Concent Red Cell Distribution Width 14.9 % Platelet Count 277 TH/MM3 Mean Platelet Volume 9.6 FL Neutrophils (%) (Auto) 92.3 % Lymphocytes (%) (Auto) 2.8 % Monocytes (%) (Auto) 4.3 % Eosinophils (%) (Auto) 0.1 % Basophils (%) (Auto) 0.5 % Neutrophils # (Auto) 19.8 TH/MM3 Lymphocytes # (Auto) 0.6 TH/MM3 Monocytes # (Auto) 0.9 TH/MM3 Eosinophils # (Auto) 0.0 TH/MM3 Basophils # (Auto) 0.1 TH/MM3 CBC Comment DIFF FINAL Differential Comment Sodium Level 138 MEQ/L Potassium Level 4.4 MEQ/L Chloride Level 98 MEQ/L Carbon Dioxide Level 33.5 MEQ/L Anion Gap 7 MEQ/L Blood Urea Nitrogen 35 MG/DL Creatinine 0.69 MG/DL Estimat Glomerular Filtration 121 ML/MIN Rate Random Glucose 303 MG/DL Calcium Level 8.8 MG/DL Imaging Last Impressions Chest X-Ray 04/09/16 0900 Signed Impressions: Service Date/Time: Saturday, April 09, 2016 09:12 - CONCLUSION: 1. Diffuse alveolar consolidation of the left lung and right upper lung field consistent with pneumonia and/or asymmetric pulmonary edema. Clinical correlation is recommended. 2. Endotracheal tube has its tip 1 cm above the chanelle. This could be pulled back 2 cm for more optimal position. Farhat Montes MD Abdomen X-Ray 03/31/16 0000 Signed Impressions: Service Date/Time: Thursday, March 31, 2016 09:58 - CONCLUSION: Benign abdomen. Rodrigo Martinez MD Chest CT 03/28/16 0836 Signed Impressions: Service Date/Time: Monday, March 28, 2016 09:57 - CONCLUSION: Development areas of air bronchograms and consolidation more prominent in the right and left posterior basilar segments of the lower lobes. ET tube above the chanelle. Bernard Hartman MD CT Angiography 03/24/16 1121 Signed Impressions: Service Date/Time: Thursday, March 24, 2016 12:47 - CONCLUSION: 1. There is respiratory motion artifact but no PE is identified through most of the segmental level pulmonary arteries. 2. Mildly enlarged main pulmonary artery may indicate pulmonary arterial hypertension. 3. 11 mm left lower lobe noncalcified pulmonary nodule. Suggest correlation with any prior imaging studies that could confirm longer-term stability. If none are available consider short-term followup noncontrast chest CT in approximately 3 months. Ubaldo Rodas MD Objective Remarks GENERAL: 50-year-old male, critically ill. Orally intubated on mechanical ventilation, on sedation and neuromuscular blockade SKIN: Evidence of seborrheic dermatitis of the face HEAD: Atraumatic. Normocephalic. EYES: Pupils equal round and slightly reactive about 3 millimeters bilaterally. ENT: NG tube in place. NECK: Very large neck. Trachea midline. Right IJ clean dry and intact CARDIOVASCULAR: Distant heart sounds. RRR. S1, S2. No S4. Without murmur RESPIRATORY: Orally intubated on mechanical ventilation, Breath sounds equal bilaterally. Diminished breath sounds due to body habitus. GASTROINTESTINAL: Abdomen soft, obese, nontender. Severe central obesity MUSCULOSKELETAL: Extremities with trace to 1+ nonpitting bilateral lower extremity edema. NEUROLOGICAL: Intubated and paralyzed on the ventilator. Date of Insertion: Apr 02, 2016 Line: Central Venous Catheter Side: Right Location: Internal, Jugular A/P Assessment and Plan NEURO/Psych: -Continue with sedation ( Diprivan, Fentanyl and Versed) -On Nimbex drip ,monitor [id number] Daily sedation vacation on hold secondary to paralytic/oxygenation status. Acetaminophen for fever RESP: Acute respiratory failure Obstructive sleep apnea Obesity hypoventilation syndrome Staph aureus pneumonia Left lower lobe pulmonary nodule of 11 millimeters - follow up CT chest 3 months without contrast recommended Pulmonary edema On PRVC/AC with RR 15, TV 550, IT: 1.65, PEEP: 15 and FIO2 90%, decrease FIO2 as luna. Ventilator bundle Bronchodilator therapy every 4 hours and as needed -Emergently intubated and placed on mechanical ventilation 03/26/16 Continue Flolan at 50 ng/kg per minute for oxygenation. -Solu-Medrol 40 mg IV q12 CTA chest revealed no PE. Possible pulmonary arterial hypertension. 11 mm pulmonary nodule. Bilateral lower lobe air bronchograms CV: -Monitor HR and BP keep MAP>65mmHg -2-D echo 03/26 EF 60%. No regional wall motion abnormality. Mild . Mild MR/ TR GI: Constipation Hypoalbuminemia -Tube feeds with Glucerna 1.5@45ml/hr, - IV Protonix 40 mg IV daily -Colace, senna for bowel regimen /FEN: -Monitor renal function, I/O's, electrolytes replacement per protocol. -On Lasix 20mg BID ID/DERM: Staph aureus pneumonia -Continue with abx per ID(Levaquin, Flagyl, Diflucan, Vanco) Pancultured 04/08- NGTD - Blood cultures 04/02 - no growth - Sputum 04/02 -Staph Aureus -03/30 sputum culture with staph aureus - 03/30 - urine - no growth - 03/30 - blood cultures 2 - negative -03/27 Sputum culture with staph aureus -03/26 03/07 bottles coag negative staph probable contamination HEME: Leukocytosis -Monitor CBC, CMP, coags ENDO: Diabetes mellitus Hyperglycemia critical illness On SSI ( high scale), increase Levemir 35u Q12 MSK: Morbid obesity Weight loss encouraged. PT evaluate and treat PROPH: -Bilateral lower extremity SCDs. IV Protonix 40 mg daily. Lovenox 40 mg sq BID LINES: -Right IJ CVL 04/02- present Palliative care to meet with family today. Critical Care: The total critical care time was 35 minutes. Time to perform other separately billable procedures was not included in the critical care time. Rob Malloy MD Apr 10, 2016 10:30
[2016-04-10] MEDS ORDERED: PHARMACY ORDERED LAB XX ONE (11:45)
[2016-04-10] MEDS: LEVOFLOXACIN 750 MG PREMIX INJ 150 ML IV SCH (13:06)
--- NOTE | 2016-04-10 13:31 | HHI.IDPN ---
Subjective Subjective Remarks Notes reviewed D/W RN Temps ok. Tolerated 6 hours supine yesterday and today On the vent, FiO2 at 0.8 since 11 am this morning On rotaprone bed On multiple sedation, flolan and nimbex Getting TF Good UO Antibiotics Levaquin Flagyl Vanco Diflucan Lines TLC - 04/02 Past Medical History Reviewed Allergies: Coded Allergies: Penicillin (Verified Allergy, Severe, Swelling, 03/24/16) Tetanus Toxoid (Verified Allergy, Unknown, Swelling, 03/24/16) Objective . Vital Signs Date Time Temp Pulse Resp B/P Pulse Ox O2 Delivery O2 Flow Rate FiO2 04/10/16 10:36 96 80 04/10/16 10:00 71 04/10/16 08:00 69 04/10/16 08:00 97.7 69 15 100/59 92 04/10/16 08:00 90 04/10/16 07:53 92 90 04/10/16 06:00 68 04/10/16 05:05 92 100 04/10/16 04:07 92 100 04/10/16 04:00 66 04/10/16 04:00 97.9 66 15 133/79 96 04/10/16 04:00 100 04/10/16 02:00 72 04/10/16 00:51 94 100 04/10/16 00:00 99.6 68 15 132/79 94 04/10/16 00:00 100 04/10/16 00:00 68 04/09/16 22:29 93 100 04/09/16 22:00 66 04/09/16 20:00 99.3 68 15 111/58 93 04/09/16 20:00 100 04/09/16 20:00 68 04/09/16 19:59 93 100 04/09/16 18:00 80 04/09/16 16:17 92 100 04/09/16 16:00 79 04/09/16 16:00 98.7 79 15 133/80 95 04/09/16 16:00 100 04/09/16 14:00 80 04/09/16 04/09/16 04/10/16 15:00 23:00 07:00 Intake Total 2285 ml 2225 ml 1666 ml Output Total 1750 ml 2400 ml 1400 ml Balance 535 ml -175 ml 266 ml IV Total 1819 ml 1819 ml 1362 ml Tube Feeding 346 ml 346 ml 304 ml Tube Irrigant 60 ml Other 120 ml Output Urine Total 1750 ml 2300 ml 1300 ml Stool Total 0 ml 100 ml 100 ml . Laboratory Tests Test 04/09/16 04/10/16 08:28 05:00 White Blood Count 21.2 TH/MM3 21.5 TH/MM3 Red Blood Count 4.96 MIL/MM3 4.82 MIL/MM3 Hemoglobin 13.3 GM/DL 12.9 GM/DL Hematocrit 42.0 % 41.0 % Mean Corpuscular Volume 84.8 FL 85.1 FL Mean Corpuscular Hemoglobin 26.9 PG 26.8 PG Mean Corpuscular Hemoglobin 31.7 % 31.5 % Concent Red Cell Distribution Width 15.0 % 14.9 % Platelet Count 287 TH/MM3 277 TH/MM3 Mean Platelet Volume 9.4 FL 9.6 FL Neutrophils (%) (Auto) 90.6 % 92.3 % Lymphocytes (%) (Auto) 3.8 % 2.8 % Monocytes (%) (Auto) 5.1 % 4.3 % Eosinophils (%) (Auto) 0.0 % 0.1 % Basophils (%) (Auto) 0.5 % 0.5 % Neutrophils # (Auto) 19.2 TH/MM3 19.8 TH/MM3 Lymphocytes # (Auto) 0.8 TH/MM3 0.6 TH/MM3 Monocytes # (Auto) 1.1 TH/MM3 0.9 TH/MM3 Eosinophils # (Auto) 0.0 TH/MM3 0.0 TH/MM3 Basophils # (Auto) 0.1 TH/MM3 0.1 TH/MM3 CBC Comment AUTO DIFF DIFF FINAL Differential Comment AUTO DIFF CONFIRMED Platelet Estimate NORMAL Platelet Morphology Comment ENLARGED Red Cell Morphology Comment NORMAL Laboratory Tests Test 04/09/16 04/10/16 05:30 05:00 Sodium Level 139 MEQ/L 138 MEQ/L Potassium Level 4.5 MEQ/L 4.4 MEQ/L Chloride Level 98 MEQ/L 98 MEQ/L Carbon Dioxide Level 34.7 MEQ/L 33.5 MEQ/L Anion Gap 6 MEQ/L 7 MEQ/L Blood Urea Nitrogen 37 MG/DL 35 MG/DL Creatinine 0.68 MG/DL 0.69 MG/DL Estimat Glomerular Filtration 123 ML/MIN 121 ML/MIN Rate Random Glucose 294 MG/DL 303 MG/DL Calcium Level 8.8 MG/DL 8.8 MG/DL Total Bilirubin 0.6 MG/DL Aspartate Amino Transf 7 U/L (AST/SGOT) Alanine Aminotransferase 26 U/L (ALT/SGPT) Alkaline Phosphatase 62 U/L Total Protein 6.6 GM/DL Albumin 2.8 GM/DL Microbiology Date/Time Procedure Status Source Growth 04/08/16 10:30 Aerobic Blood Culture - Preliminary Resulted Blood Peripheral NO GROWTH IN 2 DAYS 04/08/16 10:30 Anaerobic Blood Culture - Preliminary Resulted Blood Peripheral NO GROWTH IN 2 DAYS 04/08/16 10:37 Aerobic Blood Culture - Preliminary Resulted Blood Peripheral NO GROWTH IN 2 DAYS 04/08/16 10:37 Anaerobic Blood Culture - Preliminary Resulted Blood Peripheral NO GROWTH IN 2 DAYS 04/08/16 22:30 Gram Stain - Final Resulted Sputum Endotracheal 04/08/16 22:30 Sputum Culture - Preliminary Resulted Staphylococcus Species Imaging Chest X-Ray 04/09/16 0900 Signed Impressions: Service Date/Time: Saturday, April 09, 2016 09:12 - CONCLUSION: 1. Diffuse alveolar consolidation of the left lung and right upper lung field consistent with pneumonia and/or asymmetric pulmonary edema. Clinical correlation is recommended. 2. Endotracheal tube has its tip 1 cm above the chanelle. This could be pulled back 2 cm for more optimal position. Farhat Montes MD Chest X-Ray 04/05/16599 Signed Impressions: Service Date/Time: April 03:25 - CONCLUSION: 1. Improved basilar consolidation. Residual versus developing right midlung consolidation. 2. Small bilateral pleural effusions are suspected. 3. No change cardiomegaly or lines/tubes. Ubaldo Ortiz MD Chest X-Ray 04/04/16599 Signed Impressions: Service Date/Time: Monday, April 04, 2016 04:44 - CONCLUSION: Worsening bilateral airspace opacities, especially left perihilar. Ubaldo Ortiz MD Chest X-Ray 04/04/16599 Signed Impressions: Service Date/Time: Monday, April 04, 2016 04:44 - CONCLUSION: Worsening bilateral airspace opacities, especially left perihilar. Ubaldo Ortiz MD Chest X-Ray 04/03/16599 Signed Impressions: Service Date/Time: Sunday, April 03, 2016 00:16 - CONCLUSION: Potential developing pneumonia in the right upper lobe. Bibasilar atelectasis modestly worse in the interim. Ubaldo Ortiz MD Chest X-Ray 04/03/16 0600 Signed Impressions: Service Date/Time: Sunday, April 03, 2016 00:16 - CONCLUSION: Potential developing pneumonia in the right upper lobe. Bibasilar atelectasis modestly worse in the interim. Ubaldo Ortiz MD Chest X-Ray 04/02/16 0925 Signed Impressions: Service Date/Time: Saturday, April 02, 2016 09:22 - CONCLUSION: Place a right jugular catheter terminates superior vena cava with no pneumothorax. Bernard Hartman MD Chest X-Ray 04/01/16 0000 Signed Impressions: Service Date/Time: Friday, April 01, 2016 03:30 - CONCLUSION: No significant change has occurred. Henrry Andrea MD Abdomen X-Ray 03/31/16 0000 Signed Impressions: Service Date/Time: Thursday, March 31, 2016 09:58 - CONCLUSION: Benign abdomen. Rodrigo Martinez MD Chest X-Ray 03/30/16 0600 Signed Impressions: Service Date/Time: Wednesday, March 30, 2016 03:49 - CONCLUSION: No significant change has occurred. Henrry Andrea MD Physical Exam GENERAL: Morbidly obese, sedated and on paralytics, on the vent, He is on rotaprone bed, currently prone SKIN: Cool skin, no cyanosis FACE: Edematous, ET in place CHEST: Coarse BS bilaterally CARDIAC: regular, no murmur ABDOMEN: soft, obese, (+) BS : Becker in place MUSCULOSKELETAL: Extremities without clubbing, cyanosis. Has pedal edema and edema hands NEUROLOGICAL: Sedated and paralyzed on the vent. PSYCH: Unable to assess Assessment & Plan Remarks IMPRESSION Worsening leukocytosis, ?new infection - has been on adequate Abx for pathogens isolated - ?new HCAP, has increased O2 requirement though not much change on CXR ( though poor CXR due to his size) - UA ok - line placed 03/26 - no diarrhea - ?fungal, has been on steroids Pneumonia, C/S MSSA JACOB Respiratory failure, still with very high O2 requirement - has extensive infiltrates Morbid obesity Allergy to PCN, swelling Fevers, intermittent RECOMMENDATION Continue Levaquin Stop Flagyl Stop Diflucan Continue Vancomycin Follow new C/S Follow CBC Monitor progress On rotaprone bed D/W Elisha Archer MD Apr 10, 2016 13:31
[2016-04-10 13:37] LABS: BLOOD GAS BASE EXCESS 7.1 mmol/L (-2-2); BLOOD GAS CARBOXYHEMOGLOBIN 1.3 % (0-4); BLOOD GAS HCO3 32 mmol/L (22-26); BLOOD GAS METHEMOGLOBIN 1.3 % (0-2); BLOOD GAS O2 HGB SATURATION 94 % (90-100); BLOOD GAS OXYGEN CONTENT 17.9 Vol % (12.0-20.0); BLOOD GAS PCO2 56 mmHg (38-42); BLOOD GAS PO2 88 mmHg (61-120); BLOOD GAS TOTAL HGB 13.5 G/DL (12.0-16.0); TEMP CORR TO 98.6
[2016-04-10 13:38] LABS: CRITICAL VALUE YES; OXYGEN DEVICE VENTILATOR
[2016-04-10 13:40] LABS: DRAW SITE RT RADIAL; FIO2 80 %; NUMBER OF ARTERIAL PUNCTURES 1; STAT NO; ULNAR PULSE PRESENT; VENT SETTINGS PRVC
--- NOTE | 2016-04-10 13:50 | HHI.HCPN ---
Reason for visit a. To assist with evaluation and management of symptoms including: Dyspnea, anxiety b. To assist medical decision maker(s) with: better understanding of current medical conditions; weighing benefits/burdens of medical treatment options; making medical treatment decisions. Subjective/Interval History Patient seen today to follow-up with meeting with decision makers. Has remained in ICU on rotoprone bed. FiO2 decreased to 80% today. Still remains on 16 PEEP. On multiple sedatives, paralytic- unable to do neuro assessment. hemodynamics stable. cbc, chemistry, no significant changes. Nursing notified me when family arrived--patient examined with 2 brothers at bedside. Following exam met with 2 brothers Farhat ([facility]), Al, at length, as well as 1 daughter via speaker phone (her information receptionist was intermittent she participated in increments). Met for approximately 35 minutes: Discussion included: * Palliative care role, team members, reason for consult * Additional medical/social/spiritual history * Patient cognitive and functional status in the months to weeks prior to this admission * Patient and/or family understanding of current medical conditions prognosis treatment options and treatments * Overall condition, prognosis--review that condition is guarded though there is still a chance he can recover through this as other organ functions are still preserved with ongoing aggressive treatments he may recover, though we did explore that likely would still phase prolonged hospitalization, rehabilitation placement and course could encounter various competition/setbacks * CODE STATUS[] they will discuss further as a family for now he is to remain full code * Legal decision makers-patient designated brother Farhat as HCS, sounds like all of the family is working together and supporting one another in decision- making * Palliative care contact information provided Family details that patient had been hardworking and independent, though in the past year or so he had had significant weight gain. hen began appearing to have sleeping issues, they would encounter him in the living room sleeping upright facedown on the floor or leaning up seated in a chair they also detailed in the weeks prior to this he had increasing sleepiness during the day. He had been feeling okay overall aside from the difficulty sleeping and sleepiness. He has 2 adult daughters who live out of state, also remains close with his 4 siblings. Goals are aggressive, family seems to good understanding of current conditions and prognosis, understand there is a chance for recovery but that I he also remains very high risk for complications. Advance Directives Living Will: Completed, but not made available Health Care Surrogate: Copy in medical record Durable Power of Shoeshiner: Completed, but not made available Advance Directive Specifics Date completed: 2016 Health Care Surrogate(s): Names brother Farhat Leger as HCS Objective Vital Signs Date Time Temp Pulse Resp B/P Pulse Ox O2 Delivery O2 Flow Rate FiO2 04/10/16 10:36 96 80 04/10/16 10:00 71 04/10/16 08:00 69 04/10/16 08:00 97.7 69 15 100/59 92 04/10/16 08:00 90 04/10/16 07:53 92 90 04/10/16 06:00 68 04/10/16 05:05 92 100 04/10/16 04:07 92 100 04/10/16 04:00 66 04/10/16 04:00 97.9 66 15 133/79 96 04/10/16 04:00 100 04/10/16 02:00 72 04/10/16 00:51 94 100 04/10/16 00:00 99.6 68 15 132/79 94 04/10/16 00:00 100 04/10/16 00:00 68 04/09/16 22:29 93 100 04/09/16 22:00 66 04/09/16 20:00 99.3 68 15 111/58 93 04/09/16 20:00 100 04/09/16 20:00 68 04/09/16 19:59 93 100 04/09/16 18:00 80 04/09/16 16:17 92 100 04/09/16 16:00 79 04/09/16 16:00 98.7 79 15 133/80 95 04/09/16 16:00 100 04/09/16 14:00 80 Intake & Output 04/10/16 04/10/16 07:00 19:00 Intake Total 3891 ml Output Total 3800 ml Balance 91 ml IV Total 3181 ml Tube Feeding 650 ml Tube Irrigant 60 ml Output Urine Total 3600 ml Stool Total 200 ml Physical Exam CONSTITUTIONAL/GENERAL: This is a morbidly obese, critically ill-appearing patient seen on Rotoprone specialty bed in ICU--patient currently prone-limited exam TUBES/LINES/DRAINS: ET tube, OG tube, central line, Becker catheter, rectal drain SKIN: No jaundice, rashes, or lesions.no wounds seen posteriorly. Significant generalized edema especially to face. CARDIOVASCULAR: Regular rate and rhythm without murmurs.distant heart sounds. No JVD. Peripheral pulses symmetric. RESPIRATORY/CHEST: Symmetric, unlabored respirations via ET tube to mechanical vent. Decreased air movement throughout. No wheezes, rales, or rhonchi. GASTROINTESTINAL: Abdomen soft, obese. Unable to determine to tenderness. TF infusing via OG tube MUSCULOSKELETAL: Extremities without clubbing, cyanosis. Significant generalized edema. NEUROLOGICAL: Nonresponsive to exam, on sedatives as well as pharmacological paralytic. PSYCHIATRIC: No obvious anxiety/depression--limited exam due to clinical condition, medications . Diagnostic Tests Laboratory Laboratory Tests Test 04/08/16 04/08/16 04/09/16 04/09/16 06:00 09:10 05:30 08:28 White Blood Count 21.0 TH/MM3 21.2 TH/MM3 (4.0-11.0) (4.0-11.0) Red Blood Count 4.87 MIL/MM3 4.96 MIL/MM3 (4.50-5.90) (4.50-5.90) Hemoglobin 13.2 GM/DL 13.3 GM/DL (13.0-17.0) (13.0-17.0) Hematocrit 41.4 % 42.0 % (39.0-51.0) (39.0-51.0) Mean Corpuscular Volume 85.2 FL 84.8 FL (80.0-100.0) (80.0-100.0) Mean Corpuscular Hemoglobin 27.2 PG 26.9 PG (27.0-34.0) (27.0-34.0) Mean Corpuscular Hemoglobin 31.9 % 31.7 % Concent (32.0-36.0) (32.0-36.0) Red Cell Distribution Width 14.9 % 15.0 % (11.6-17.2) (11.6-17.2) Platelet Count 296 TH/MM3 287 TH/MM3 (150-450) (150-450) Mean Platelet Volume 9.9 FL 9.4 FL (7.0-11.0) (7.0-11.0) Neutrophils (%) (Auto) 92.5 % 90.6 % (16.0-70.0) (16.0-70.0) Lymphocytes (%) (Auto) 2.8 % 3.8 % (9.0-44.0) (9.0-44.0) Monocytes (%) (Auto) 4.5 % (0.0-8.0) 5.1 % (0.0-8.0) Eosinophils (%) (Auto) 0.0 % (0.0-4.0) 0.0 % (0.0-4.0) Basophils (%) (Auto) 0.2 % (0.0-2.0) 0.5 % (0.0-2.0) Neutrophils # (Auto) 19.4 TH/MM3 19.2 TH/MM3 (1.8-7.7) (1.8-7.7) Lymphocytes # (Auto) 0.6 TH/MM3 0.8 TH/MM3 (1.0-4.8) (1.0-4.8) Monocytes # (Auto) 1.0 TH/MM3 1.1 TH/MM3 (0-0.9) (0-0.9) Eosinophils # (Auto) 0.0 TH/MM3 0.0 TH/MM3 (0-0.4) (0-0.4) Basophils # (Auto) 0.0 TH/MM3 0.1 TH/MM3 (0-0.2) (0-0.2) CBC Comment DIFF FINAL AUTO DIFF Differential Comment AUTO DIFF CONFIRMED Sodium Level 139 MEQ/L 139 MEQ/L (136-145) (136-145) Potassium Level 4.5 MEQ/L 4.5 MEQ/L (3.5-5.1) (3.5-5.1) Chloride Level 96 MEQ/L 98 MEQ/L (98-107) (98-107) Carbon Dioxide Level 36.3 MEQ/L 34.7 MEQ/L (21.0-32.0) (21.0-32.0) Anion Gap 7 MEQ/L (5-15) 6 MEQ/L (5-15) Blood Urea Nitrogen 38 MG/DL (7-18) 37 MG/DL (7-18) Creatinine 0.73 MG/DL 0.68 MG/DL (0.60-1.30) (0.60-1.30) Estimat Glomerular Filtration 114 ML/MIN 123 ML/MIN Rate (>89) (>89) Random Glucose 252 MG/DL 294 MG/DL (74-106) (74-106) Calcium Level 8.8 MG/DL 8.8 MG/DL (8.5-10.1) (8.5-10.1) Phosphorus Level 3.2 MG/DL (2.5-4.9) Magnesium Level 2.6 MG/DL (1.5-2.5) Total Bilirubin 0.5 MG/DL 0.6 MG/DL (0.2-1.0) (0.2-1.0) Aspartate Amino Transf 7 U/L (15-37) 7 U/L (15-37) (AST/SGOT) Alanine Aminotransferase 27 U/L (12-78) 26 U/L (12-78) (ALT/SGPT) Alkaline Phosphatase 60 U/L (45-117) 62 U/L (45-117) Total Protein 6.7 GM/DL 6.6 GM/DL (6.4-8.2) (6.4-8.2) Albumin 2.8 GM/DL 2.8 GM/DL (3.4-5.0) (3.4-5.0) Urine Color YELLOW (YELLW/STRAW) Urine Turbidity CLEAR (CLEAR) Urine pH 6.5 (5.0-8.5) Urine Specific [place] 1.012 (1.002-1.035) Urine Protein NEG mg/dL (NEG-TRACE) Urine Glucose (UA) NEG mg/dL (NEG) Urine Ketones NEG mg/dL (NEG) Urine Occult Blood NEG (NEG) Urine Nitrite NEG (NEG) Urine Bilirubin NEG (NEG) Urine Urobilinogen LESS THAN 2.0 MG/DL (LESS THAN 2.0) Urine Leukocyte Esterase SMALL (NEG) Urine RBC 6 /hpf (0-3) Urine WBC 5 /hpf (0-5) Urine Hyaline Casts 1 /lpf (RARE) Urine Mucus FEW /lpf (OCC) Microscopic Urinalysis Comment CULT NOT INDICATED Platelet Estimate NORMAL (NORMAL) Platelet Morphology Comment ENLARGED (NORMAL) Red Cell Morphology Comment NORMAL (NORMAL) Test 04/10/16 04/10/16 05:00 11:15 White Blood Count 21.5 TH/MM3 (4.0-11.0) Red Blood Count 4.82 MIL/MM3 (4.50-5.90) Hemoglobin 12.9 GM/DL (13.0-17.0) Hematocrit 41.0 % (39.0-51.0) Mean Corpuscular Volume 85.1 FL (80.0-100.0) Mean Corpuscular Hemoglobin 26.8 PG (27.0-34.0) Mean Corpuscular Hemoglobin 31.5 % Concent (32.0-36.0) Red Cell Distribution Width 14.9 % (11.6-17.2) Platelet Count 277 TH/MM3 (150-450) Mean Platelet Volume 9.6 FL (7.0-11.0) Neutrophils (%) (Auto) 92.3 % (16.0-70.0) Lymphocytes (%) (Auto) 2.8 % (9.0-44.0) Monocytes (%) (Auto) 4.3 % (0.0-8.0) Eosinophils (%) (Auto) 0.1 % (0.0-4.0) Basophils (%) (Auto) 0.5 % (0.0-2.0) Neutrophils # (Auto) 19.8 TH/MM3 (1.8-7.7) Lymphocytes # (Auto) 0.6 TH/MM3 (1.0-4.8) Monocytes # (Auto) 0.9 TH/MM3 (0-0.9) Eosinophils # (Auto) 0.0 TH/MM3 (0-0.4) Basophils # (Auto) 0.1 TH/MM3 (0-0.2) CBC Comment DIFF FINAL Differential Comment Sodium Level 138 MEQ/L (136-145) Potassium Level 4.4 MEQ/L (3.5-5.1) Chloride Level 98 MEQ/L (98-107) Carbon Dioxide Level 33.5 MEQ/L (21.0-32.0) Anion Gap 7 MEQ/L (5-15) Blood Urea Nitrogen 35 MG/DL (7-18) Creatinine 0.69 MG/DL (0.60-1.30) Estimat Glomerular Filtration 121 ML/MIN Rate (>89) Random Glucose 303 MG/DL (74-106) Calcium Level 8.8 MG/DL (8.5-10.1) Vancomycin Level Trough 8.0 MCG/ML (5.0-10.0) Result Diagram: 04/10/16 0500 04/10/16 0500 Microbiology Microbiology Date/Time Procedure Status Source Growth 04/08/16 10:30 Aerobic Blood Culture - Preliminary Resulted Blood Peripheral NO GROWTH IN 2 DAYS 04/08/16 10:30 Anaerobic Blood Culture - Preliminary Resulted Blood Peripheral NO GROWTH IN 2 DAYS 04/08/16 10:37 Aerobic Blood Culture - Preliminary Resulted Blood Peripheral NO GROWTH IN 2 DAYS 04/08/16 10:37 Anaerobic Blood Culture - Preliminary Resulted Blood Peripheral NO GROWTH IN 2 DAYS 04/08/16 22:30 Gram Stain - Final Resulted Sputum Endotracheal 04/08/16 22:30 Sputum Culture - Preliminary Resulted Staphylococcus Species Imaging Last Impressions Chest X-Ray 04/09/16 0900 Signed Impressions: Service Date/Time: Saturday, April 09, 2016 09:12 - CONCLUSION: 1. Diffuse alveolar consolidation of the left lung and right upper lung field consistent with pneumonia and/or asymmetric pulmonary edema. Clinical correlation is recommended. 2. Endotracheal tube has its tip 1 cm above the chanelle. This could be pulled back 2 cm for more optimal position. Farhat Montes MD Abdomen X-Ray 03/31/16 0000 Signed Impressions: Service Date/Time: Thursday, March 31, 2016 09:58 - CONCLUSION: Benign abdomen. Rodrigo Martinez MD Chest CT 03/28/16 0836 Signed Impressions: Service Date/Time: Monday, March 28, 2016 09:57 - CONCLUSION: Development areas of air bronchograms and consolidation more prominent in the right and left posterior basilar segments of the lower lobes. ET tube above the chanelle. Bernard Hartman MD CT Angiography 03/24/16 1121 Signed Impressions: Service Date/Time: Thursday, March 24, 2016 12:47 - CONCLUSION: 1. There is respiratory motion artifact but no PE is identified through most of the segmental level pulmonary arteries. 2. Mildly enlarged main pulmonary artery may indicate pulmonary arterial hypertension. 3. 11 mm left lower lobe noncalcified pulmonary nodule. Suggest correlation with any prior imaging studies that could confirm longer-term stability. If none are available consider short-term followup noncontrast chest CT in approximately 3 months. Ubaldo Rodas MD Procedures 03/26intubated 03/26 left IJ central line 04/02right IJ central line Assessment and Plan Disease Oriented Problem List: (1) Acute respiratory failure with hypoxia (2) Staphylococcus aureus pneumonia (3) Pulmonary edema (4) Hypoxia (5) JACOB (obstructive sleep apnea) (6) Pulmonary nodule, left (7) Obesity hypoventilation syndrome (8) Morbid obesity with BMI of 50.0-59.9, adult (9) Diabetes mellitus type 2 in obese Symptom Scale: Pertinent Non-Medical Issues Psychosocial:Patient is , shares an apartment locally with his brother. Apparently has 2 other siblings as well as 2 adult children who live in the [place] area. Has designated his brother Farhat as healthcare surrogate. 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 Spiritual: Legal:Patient is not able to participate in decision-making due to clinical condition. Has completed designation naming his brother Farhat as [facility]. Ethical issues impacting care: Important Contacts brother Farhat Leger [phone] ([facility]) Brother Gagandeep Leger [phone] . Prognosis This patient was admitted for further evaluation of obesity hypoventilation syndrome; absolutely developed acute respiratory failure requiring mechanical ventilation. Has continued to require high levels of ventilator support, though other organ functions remain preserved. Possible he can recover from this however currently remains in critical condition, prognosis guarded. . Code Status: Full Code (per attending documentation ) Plan * Legal decision maker: Patiently currently unable to participate in goals / decision-making due to clinical condition. Not clear if or when he will regain ability. He has designated his brother Farhat as healthcare surrogate. * Goals: Met with 2 brothers at length today, as well as a daughter for part of meeting.Goals are aggressive, family seems to good understanding of current conditions and prognosis, understand there is a chance for recovery but that I he also remains very high risk for complications. They will discuss CODE STATUS further as a family for now patient full code. * CODE STATUS: Full code. * SYMPTOMS: --Dyspnea-emergently intubated, has remained on high ventilator settings as well as prone bed. Currently vent asynchrony controlled with multiple sedatives as well as paralytic. (fentanyl, Versed, Diprivan, Nimbex) --Anxiety-risk for related to prolonged intubation, hospitalization, underlying respiratory issues; currently appears comfortable on multiple sedatives (fentanyl, Versed, Diprivan) * Palliative care will continue to follow during hospital course as condition evolves, to assist patient/decision-maker with understanding of medical conditions, weighing benefits/burdens of treatment options, for clarification of goals of treatment. Additionally will assist with any symptoms of palliative concern Time Spent Total Floor Time (mins): 45 >50% Counseling/Coord of Care: Yes (discussed with critical care, RN) Attestation To help prompt me to consider important information that might be impacting today's encounter and assessment, information from prior notes written by myself or my colleagues may have been "brought forward" into today's note. My signature on this note, however, is an attestation that I personally performed the exam, history, and/or decision-making noted today, and, unless otherwise indicated, the interactions with patient, family, and staff as well as the review of records all occurred today. I also attest that the listed assessment and stated plan reflect my best clinical judgment today based on the combination of historical information, prior notes, and today's exam/ interactions. When time spent is documented, it refers only to time spent today by the signer, or if indicated, combined time spent today by collaborating physician/nurse practitioner. Irais Josue Apr 10, 2016 13:49
[2016-04-10] MEDS: PANTOPRAZOLE SODIUM 40 MG VIAL IV PUSH SCH (17:35)
[2016-04-10] MEDS: VANCOMYCIN INJ 2,000 MG in SODIUM CHLORID 0.9% 500 ML INJ 500 ML IV SCH (19:39)
[2016-04-11] VITALS (19 sets, daily range): BP systolic 76–124; BP diastolic 46–72; PULSE 60–75; RESP 15; TEMP 97.8–99.6; O2SAT 91–98
[2016-04-11] MEDS: CISATRACURIUM INJ 100 MG in SODIUM CHLOR 0.9% 250 ML INJ 240 ML IV SCH ×6 (01:08→23:05)
[2016-04-11] MEDS: EPOPROSTENOL NEB SOLUTION 50 NG/KG/MIN 100 ML NEB SCH ×6 (02:10→17:30)
[2016-04-11] MEDS: PROPOFOL 1000 MG/100 ML IV SCH ×10 (02:52→23:04)
[2016-04-11] MEDS: MIDAZOLAM 100 MG/ML INJ 100 ML IV SCH ×3 (04:31→23:04)
[2016-04-11] MEDS: fentaNYL 2,500 MCG/NS 250 ML IV SCH ×3 (04:31→23:04)
--- NOTE | 2016-04-11 05:29 | RADRPT ---
EXAM DATE/TIME: 04/11/2016 04:09 [facility] COMPARISON: CHEST SINGLE AP, April 09, 2016, 9:12. INDICATIONS : Shortness of breath. MEDICAL HISTORY : Diabetes mellitus type II. SURGICAL HISTORY : None. ENCOUNTER: Subsequent ACUITY: 2 weeks PAIN SCORE: Non-responsive. LOCATION: Bilateral chest FINDINGS: Endotracheal tube and NG tube again noted. Right jugular line overlies the SVC. Cardiomegaly and shal low lung volumes. CONCLUSION: No significant change has occurred. Henrry Andrea MD on April 11, 2016 at 5:27 Board Certified Radiologist. This report was verified electronically.
[2016-04-11 05:36] LABS: AUTOMATED NEUTROPHIL # 15.7 TH/MM3 (1.8-7.7); BASOPHIL % 0.1 % (0.0-2.0); EOSINOPHIL % 0.1 % (0.0-4.0); HEMATOCRIT 38.4 % (39.0-51.0); HEMO FLAGS DIFF FINAL; LYMPH % 4.2 % (9.0-44.0); LYMPHOCYTE # 0.7 TH/MM3 (1.0-4.8); MEAN CELL VOLUME 83.9 FL (80.0-100.0); MEAN CORPUSCULAR HEMOGLOBIN 27.6 PG (27.0-34.0); MEAN CORPUSCULAR HGB CONC 32.9 % (32.0-36.0); NEUT % 90.6 % (16.0-70.0); PLATELET COUNT 245 TH/MM3 (150-450); RED BLOOD COUNT 4.58 MIL/MM3 (4.50-5.90); RED CELL DISTRIBUTION WIDTH 14.6 % (11.6-17.2); WHITE BLOOD COUNT 17.3 TH/MM3 (4.0-11.0)
[2016-04-11] MEDS: METOCLOPRAMIDE HCL 10 MG/2 ML VIAL IV PUSH SCH ×3 (05:42→21:45)
[2016-04-11] MEDS: ENOXAPARIN SODIUM 40 MG/0.4 ML SYRINGE SQ SCH ×2 (05:43→17:29)
[2016-04-11 06:00] LABS: BICARBONATE 35.3 MEQ/L (21.0-32.0); MAGNESIUM 2.3 MG/DL (1.5-2.5); POTASSIUM 4.3 MEQ/L (3.5-5.1)
[2016-04-11] MEDS: INSULIN NovoLIN REGULAR SUPPLEMENTAL SCALE SQ SCH ×4 (06:00→23:32)
[2016-04-11] MEDS: RESP: ALBUTEROL 2.5 MG/IPRATROPIUM 0.5 MG NEB (PRN) NEB ×4 (07:28→23:41)
[2016-04-11] MEDS: CHLORHEXIDINE 0.12% (ORAL KIT) 15 ML CUP MT SCH ×2 (07:56→20:28)
[2016-04-11] MEDS: VANCOMYCIN INJ 2,000 MG in SODIUM CHLORID 0.9% 500 ML INJ 500 ML IV SCH ×2 (07:56→20:25)
[2016-04-11] MEDS: LACTOBACILLUS ACIDOPHILUS TAB PO SCH ×3 (07:56→17:30)
[2016-04-11] MEDS: FUROSEMIDE 20 MG/2 ML VIAL IV PUSH SCH ×2 (08:07→17:29)
[2016-04-11] MEDS: methylPREDNISolone SOD SUCC 40 MG/1 ML VIAL IV PUSH SCH ×2 (08:07→20:25)
[2016-04-11] MEDS: INSULIN DETEMIR 100 UNITS/ML VIAL SQ SCH ×2 (08:07→20:32)
[2016-04-11] MEDS: BETAMETHASONE/CLOTRIMAZOLE CREAM 15 GM TOPICAL SCH ×2 (08:08→20:27)
[2016-04-11] MEDS: DOCUSATE SODIUM 100 MG/10 ML UDC PO SCH ×2 (08:08→20:25)
[2016-04-11] MEDS: SENNOSIDES SYRUP 8.8 MG/5 ML CUP PO/TUBE SCH ×2 (08:08→20:25)
[2016-04-11] MEDS: ARTIFICIAL TEARS OPTH OINT 3.5 APPLIC/3.5 GM TUBO EACH EYE SCH ×2 (08:08→20:27)
[2016-04-11] MEDS: SODIUM CHLORIDE 0.9% FLUSH 5 ML FLUSH IVF SCH (08:09)
[2016-04-11] MEDS: BENEPROTEIN POWDER 1 PACK G-TUBE SCH ×3 (08:09→17:31)
--- NOTE | 2016-04-11 08:47 | HHI.PR ---
Subjective Remarks ON THE VENT SEDATED Objective Vital Signs Date Time Temp Pulse Resp B/P Pulse Ox O2 Delivery O2 Flow Rate FiO2 04/11/16 08:00 75 04/11/16 07:24 92 75 04/11/16 06:00 70 04/11/16 04:44 92 75 04/11/16 04:00 62 04/11/16 04:00 75 04/11/16 04:00 99.0 62 15 114/64 91 04/11/16 02:00 64 04/11/16 00:41 91 75 04/11/16 00:00 74 04/11/16 00:00 99.4 74 15 105/59 94 04/11/16 00:00 75 04/10/16 22:00 65 04/10/16 20:00 70 04/10/16 20:00 75 04/10/16 20:00 99.6 69 15 92/53 92 04/10/16 19:36 96 75 04/10/16 18:00 67 04/10/16 16:00 66 04/10/16 16:00 97.7 67 15 95/51 93 04/10/16 16:00 75 04/10/16 15:24 95 80 04/10/16 14:04 96 80 04/10/16 14:00 68 04/10/16 12:00 98.6 70 15 116/60 94 04/10/16 12:00 80 04/10/16 12:00 69 04/10/16 10:36 96 80 04/10/16 10:00 71 I/O 04/10/16 04/10/16 04/10/16 04/11/16 04/11/16 04/11/16 07:00 15:00 23:00 07:00 15:00 23:00 Intake Total 1666 ml 2609 ml 1878 ml 1470 ml Output Total 1400 ml 2050 ml 2400.0 ml 900 ml Balance 266 ml 559 ml -522.0 ml 570 ml IV Total 1362 ml 2274 ml 1627 ml 1149 ml Tube Feeding 304 ml 335 ml 191 ml 261 ml Other 60 ml 60 ml Output Urine Total 1300 ml 1850 ml 2200 ml 900 ml Stool Total 100 ml 200 ml 0 ml 0 ml Tube Feeding Residual Discard 200.0 ml Result Diagram: 04/11/16 0445 04/11/16 0445 Assessment and Plan Assessment and Plan RESPIRATORY FAILURE SEPSIS ARDS JACOB/CSA PLAN VENT SUPPORT PULM TOILET WEAN TOLERATED. Orlando Perry MD Apr 11, 2016 08:47
--- NOTE | 2016-04-11 12:23 | HHI.CCPN ---
Subjective Remarks/Hospital Course Patient is a 50 years old obese male with past medical history significant for undiagnosed sleep apnea, super morbid obesity, type 2 diabetes was brought to the emergency department on 03/24/16 after feeling light headed and dizzy. On presentation here was found to be hypoxemic and ABG showed severe hypoxemia and hypercarbia. For a recent driving physical he was diagnosed with low oxygen saturations. Patient's oxygen saturation the ED was in the low 80s, which was confirmed on ABG with a oxygen saturation of 78% and PO2 of 46. CTA negative for PE. Patient was initiated on BiPAP therapy with consult to pulmonary Dr. Crane. His oxygenation improved but he continued to be hypercapnic. Today a.m. on nasal cannula his pH was 7.26 and PCO2 was increased at 99, patient was somnolent was placed back on BiPAP and repeat ABG at noon showed pH 7.26 PCO2 98 and pO2 70. This was on 16 BiPAP with FiO2 50%. Critical care was consulted. On my evaluation patient is somnolent but wakes up easily. I reduced the PEEP on BiPAP from 12-7 to facilitate better ventilation. A repeat ANG showed only minimal improvement, so decision made to intubate patient. Glidescope with #4 blade was used. Only propofol was used for induction. Initially I had a Grade 1-2 view, but I was unable to pass tube through the vocal cord to trachea in two attempts. Tube slipped out of Laryngeal opening both times. Dr Garrett intubated patient after NM paralysis with succinylcholine. Post intubation ABG showed improvement in hypercapnia and oxygenation. 03/27/16: Patient remains intubated heavily sedated with propofol and fentanyl. Remained severely hypoxemic on 100% FiO2, PEEP12, chest x-ray shows bibasilar infiltrates. Flagyl added. We'll give 1 dose of vancomycin-Adjust antibiotics according to cultures. Patient super morbid obesity may prevent Prone therapy 03/28: Remains hypoxic but ABG shows marginal improvement in oxygenation. WBC increasing 20.1 today. Start vancomycin scheduled. 03/29: Oxygenation is slightly improved. FiO2 reduced to 50% today. Chest x- ray remains unchanged. On sedation hold patient does wake up and follow commands. WBC count remains at 20 03/30 No acute events overnight. Sedated with Diprivan and Fentanyl. Had T: 100.1 at 4 am. WBC trending down 15.9 today from 20. 03/31 Patient remains sedated with Diprivan, Fentanyl and intubated. Tmax 100.1. Patient required increase O2 overnight now on ACV with PEEP: 12 and FIO2 70%. 04/01: Tmax 99.7. No bowel movement since admission. Patient has bowel sounds. Arousable on the ventilator. We'll attempt prone the patient paralyzed to increase oxygenation status. 04/02: MAXIMUM TEMPERATURE 100.9. Currently 97.7. 5 10 cc stools overnight. Placed on Roto prone yesterday. Saturations currently 94% on Flolan. Diuresed overnight. Creatinine still within normal limits. 04/03: Tmax 101. Currently 99.1. Positive BM. Did not tolerate not being unprone this AM. Saturations much improved prone. Tolerating tube feeding. Subjective 04/04: Tmax 100.8. Currently 98.8. +2 L past 24 hours. Attempt to on prone today. Positive BM. C. difficile negative. Remains paralyzed. 04/05: Remains sedated, orally intubated on neuromuscular blockade on mechanical ventilation. Remains on Rota prone bed. On insulin drip. 04/06: Remains sedated, orally intubated on neuromuscular blockade, on mechanical ventilation. Remains on Rota prone bed. Insulin drip continues. 04/07 Patient remains on Rotoprone bed sedated with Diprivan, Versed, Fentanyl in addition patient is on Nimbex. Afebrile. On Insulin drip 5u/hr. 04/08 Patient remains sedated and intubated and on Nimbex. Off insulin drip. On PRVC/AC with RR 15, TV 550, IT: 1.65, PEEP: 15 and FIO2 100%. T: 100.2 at 4 am. 04/09 Patient is sedated, intubated and remains on neuromuscular blockade. Vent setting unchanged. afebrile. 04/10 Patient remains sedated and intubated and on Nimbex. On PRVC/AC, RR 15, TV 500, PEEP: 15, FIO2 90%, IT:1.65, on Flolan drip. Remains on Rotoprone bed. 04/11 minimal improvement in oxygenation, FiO2 now at 75 Objective Vital Signs Date Time Temp Pulse Resp B/P Pulse Ox O2 Delivery O2 Flow Rate FiO2 04/11/16 11:33 96 75 04/11/16 10:00 72 04/11/16 08:00 99.6 15 116/67 Intake and Output 04/10/16 04/10/16 04/11/16 08:00 16:00 00:00 Intake Total 1666 ml 2609 ml 1878 ml Output Total 1400 ml 2050 ml 2400.0 ml Balance 266 ml 559 ml -522.0 ml Result Diagram: 04/11/16 0445 04/11/16 0445 Other Results Microbiology Date/Time Procedure Status Source Growth 04/08/16 22:30 Gram Stain - Final Complete Sputum Endotracheal 04/08/16 22:30 Sputum Culture - Final Complete Staphylococcus Aureus Laboratory Tests Test 04/10/16 13:30 Blood Gas Puncture Site RT RADIAL Blood Gas Patient Temperature 98.6 Blood Gas HCO3 32 mmol/L (22-26) Blood Gas Base Excess 7.1 mmol/L (-2-2) Blood Gas Oxygen Saturation 94 % (90-100) Arterial Blood pH 7.38 (7.380-7.420) Arterial Blood Partial 56 mmHg (38-42) Pressure CO2 Arterial Blood Partial 88 mmHg Pressure O2 (61-120) Arterial Blood Oxygen Content 17.9 Vol % (12.0-20.0) Arterial Blood 1.3 % (0-4) Carboxyhemoglobin Arterial Blood Methemoglobin 1.3 % (0-2) Blood Gas Hemoglobin 13.5 G/DL (12.0-16.0) Oxygen Delivery Device VENTILATOR Blood Gas Ventilator Setting PRVC Blood Gas Inspired Oxygen 80 % Imaging Last Impressions Chest X-Ray 04/09/16 0900 Signed Impressions: Service Date/Time: Saturday, April 09, 2016 09:12 - CONCLUSION: 1. Diffuse alveolar consolidation of the left lung and right upper lung field consistent with pneumonia and/or asymmetric pulmonary edema. Clinical correlation is recommended. 2. Endotracheal tube has its tip 1 cm above the chanelle. This could be pulled back 2 cm for more optimal position. Farhat Montes MD Abdomen X-Ray 03/31/16 0000 Signed Impressions: Service Date/Time: Thursday, March 31, 2016 09:58 - CONCLUSION: Benign abdomen. Rodrigo Martinez MD Chest CT 03/28/16 0836 Signed Impressions: Service Date/Time: Monday, March 28, 2016 09:57 - CONCLUSION: Development areas of air bronchograms and consolidation more prominent in the right and left posterior basilar segments of the lower lobes. ET tube above the chanelle. Bernard Hartman MD CT Angiography 03/24/16 1121 Signed Impressions: Service Date/Time: Thursday, March 24, 2016 12:47 - CONCLUSION: 1. There is respiratory motion artifact but no PE is identified through most of the segmental level pulmonary arteries. 2. Mildly enlarged main pulmonary artery may indicate pulmonary arterial hypertension. 3. 11 mm left lower lobe noncalcified pulmonary nodule. Suggest correlation with any prior imaging studies that could confirm longer-term stability. If none are available consider short-term followup noncontrast chest CT in approximately 3 months. Ubaldo Rodas MD Objective Remarks GENERAL: 50-year-old male, critically ill. Orally intubated on mechanical ventilation, on sedation and neuromuscular blockade SKIN: Evidence of seborrheic dermatitis of the face HEAD: Atraumatic. Normocephalic. EYES: Pupils equal round and slightly reactive about 3 millimeters bilaterally. ENT: NG tube in place. NECK: Very large neck. Trachea midline. Right IJ clean dry and intact CARDIOVASCULAR: Distant heart sounds. RRR. S1, S2. No S4. Without murmur RESPIRATORY: Orally intubated on mechanical ventilation, Breath sounds equal bilaterally. Diminished breath sounds due to body habitus. GASTROINTESTINAL: Abdomen soft, obese, nontender. Severe central obesity MUSCULOSKELETAL: Extremities with trace to 1+ nonpitting bilateral lower extremity edema. NEUROLOGICAL: Intubated and paralyzed on the ventilator. Date of Insertion: Apr 02, 2016 Line: Central Venous Catheter Side: Right Location: Internal, Jugular A/P Assessment and Plan NEURO/Psych: - Continue with sedation ( Diprivan, Fentanyl and Versed) - Continue Nimbex drip ,monitor [id number] Still Daily sedation vacation on hold secondary to paralytic/oxygenation status. Acetaminophen PRN for fever RESP: Acute respiratory failure Obstructive sleep apnea Obesity hypoventilation syndrome Staph aureus pneumonia Left lower lobe pulmonary nodule of 11 millimeters - follow up CT chest 3 months without contrast recommended Pulmonary edema On PRVC/AC with RR 15, TV 550, IT: 1.65, PEEP: 15 and FIO2 90%, decrease FIO2 as luna. Ventilator bundle Bronchodilator therapy every 4 hours and as needed -Emergently intubated and placed on mechanical ventilation 03/26/16 - Continue Flolan at 50 ng/kg per minute for oxygenation. - Continue Solu-Medrol 40 mg IV q12 CTA chest revealed no PE. Possible pulmonary arterial hypertension. 11 mm pulmonary nodule. Bilateral lower lobe air bronchograms CV: -Monitor HR and BP keep MAP>65mmHg -2-D echo 03/26 EF 60%. No regional wall motion abnormality. Mild . Mild MR/ TR GI: Constipation Hypoalbuminemia -Tube feeds with Glucerna 1.5@45ml/hr, - IV Protonix 40 mg IV daily - Colace, senna for bowel regimen - increased residuals - increase Reglan to 10mg Q8 /FEN: -Monitor renal function, I/O's, electrolytes replacement per protocol. -On Lasix 20mg BID ID/DERM: Staph aureus pneumonia -Continue with abx per ID(Levaquin, Flagyl, Diflucan, Vanco) Pancultured 04/08- NGTD - Blood cultures 04/02 - no growth - Sputum 04/02 -Staph Aureus -03/30 sputum culture with staph aureus - 03/30 - urine - no growth - 03/30 - blood cultures 2 - negative -03/27 Sputum culture with staph aureus -03/26 03/07 bottles coag negative staph probable contamination HEME: Leukocytosis -Monitor CBC, CMP, coags ENDO: Diabetes mellitus Hyperglycemia critical illness On SSI ( high scale), increase Levemir 35u Q12 MSK: Morbid obesity Weight loss encouraged. PT evaluate and treat PROPH: -Bilateral lower extremity SCDs. IV Protonix 40 mg daily. Lovenox 40 mg sq BID LINES: -Right IJ CVL 04/02- present Palliative care to meet with family today. Critical Care: The total critical care time was 35 minutes. Time to perform other separately billable procedures was not included in the critical care time. Jermaine Martini MD Apr 11, 2016 12:23
[2016-04-11] MEDS: LEVOFLOXACIN 750 MG PREMIX INJ 150 ML IV SCH (13:52)
--- NOTE | 2016-04-11 14:29 | HHI.HCPN ---
Reason for visit a. To assist with evaluation and management of symptoms including: Dyspnea, anxiety b. To assist medical decision maker(s) with: better understanding of current medical conditions; weighing benefits/burdens of medical treatment options; making medical treatment decisions. Subjective/Interval History Patient seen today in [facility] in Rotoprone bed. He is on 75% FiO2, remains on 16 PEEP, and remains on fentanyl, medazepam, and propofol. The chest x-ray today has shown no signs of improvement, continues to report pneumonia. Sputum cultures grew staph aureus, blood cultures have been negative. . Family/friend interactions Called brother Farhat and left voice mail, and he called me back about 30 minutes later. Farhat says he has spoken with the patient's two 20 something daughters in [place] and they want to continue aggressive care and full CODE STATUS. Farhat says he did discuss with them the poor prognosis. I encouraged him to encouraged them to come down here to see their father, and let him know that we would be happy to discuss this further with them also. He says he, the healthcare surrogate, would lean toward de-escalation of care but he wants to honor the daughter's wishes. . . Advance Directives Living Will: Completed, but not made available Health Care Surrogate: Copy in medical record Durable Power of Rod Drawer: Completed, but not made available Advance Directive Specifics Date completed: 2016 Health Care Surrogate(s): Names brother Farhat Leger as HCS Objective Vital Signs Date Time Temp Pulse Resp B/P Pulse Ox O2 Delivery O2 Flow Rate FiO2 04/11/16 14:00 64 04/11/16 12:00 97.8 64 15 115/70 96 04/11/16 12:00 62 04/11/16 12:00 75 04/11/16 11:33 96 75 04/11/16 10:00 72 04/11/16 08:00 75 04/11/16 08:00 75 04/11/16 08:00 99.6 74 15 116/67 92 04/11/16 07:24 92 75 04/11/16 06:00 70 04/11/16 04:44 92 75 04/11/16 04:00 62 04/11/16 04:00 75 04/11/16 04:00 99.0 62 15 114/64 91 04/11/16 02:00 64 04/11/16 00:41 91 75 04/11/16 00:00 74 04/11/16 00:00 99.4 74 15 105/59 94 04/11/16 00:00 75 04/10/16 22:00 65 04/10/16 20:00 70 04/10/16 20:00 75 04/10/16 20:00 99.6 69 15 92/53 92 04/10/16 19:36 96 75 04/10/16 18:00 67 04/10/16 16:00 66 04/10/16 16:00 97.7 67 15 95/51 93 04/10/16 16:00 75 04/10/16 15:24 95 80 Intake & Output 04/11/16 04/11/16 07:00 19:00 Intake Total 3348 ml 1849 ml Output Total 3300.0 ml 2000 ml Balance 48.0 ml -151 ml IV Total 2776 ml 1706 ml Tube Feeding 452 ml 83 ml Other 120 ml 60 ml Output Urine Total 3100 ml 2000 ml Stool Total 0 ml Tube Feeding Residual Discard 200.0 ml Physical Exam CONSTITUTIONAL/GENERAL: This is a morbidly obese, critically ill-appearing [facility]--patient currently prone-limited exam TUBES/LINES/DRAINS: ET tube, OG tube, central line, Becker catheter, rectal drain SKIN: No jaundice, rashes, or lesions.no wounds seen posteriorly. Significant generalized edema especially to face. CARDIOVASCULAR: Regular rate and rhythm without murmurs.distant heart sounds. No JVD. Peripheral pulses symmetric. RESPIRATORY/CHEST: Symmetric, unlabored respirations via ET tube to mechanical vent. Decreased air movement throughout. No wheezes, rales, or rhonchi. GASTROINTESTINAL: Abdomen soft, obese. Unable to determine to tenderness. TF infusing via OG tube MUSCULOSKELETAL: Extremities without clubbing, cyanosis. Significant generalized edema. NEUROLOGICAL: Nonresponsive to exam, on sedatives as well as pharmacological paralytic. PSYCHIATRIC: No obvious anxiety/depression--limited exam due to clinical condition, medications . Diagnostic Tests Laboratory Laboratory Tests Test 04/09/16 04/09/16 04/10/16 04/10/16 05:30 08:28 05:00 11:15 Sodium Level 139 MEQ/L 138 MEQ/L (136-145) (136-145) Potassium Level 4.5 MEQ/L 4.4 MEQ/L (3.5-5.1) (3.5-5.1) Chloride Level 98 MEQ/L 98 MEQ/L (98-107) (98-107) Carbon Dioxide Level 34.7 MEQ/L 33.5 MEQ/L (21.0-32.0) (21.0-32.0) Anion Gap 6 MEQ/L (5-15) 7 MEQ/L (5-15) Blood Urea Nitrogen 37 MG/DL (7-18) 35 MG/DL (7-18) Creatinine 0.68 MG/DL 0.69 MG/DL (0.60-1.30) (0.60-1.30) Estimat Glomerular Filtration 123 ML/MIN 121 ML/MIN Rate (>89) (>89) Random Glucose 294 MG/DL 303 MG/DL (74-106) (74-106) Calcium Level 8.8 MG/DL 8.8 MG/DL (8.5-10.1) (8.5-10.1) Total Bilirubin 0.6 MG/DL (0.2-1.0) Aspartate Amino Transf 7 U/L (15-37) (AST/SGOT) Alanine Aminotransferase 26 U/L (12-78) (ALT/SGPT) Alkaline Phosphatase 62 U/L (45-117) Total Protein 6.6 GM/DL (6.4-8.2) Albumin 2.8 GM/DL (3.4-5.0) White Blood Count 21.2 TH/MM3 21.5 TH/MM3 (4.0-11.0) (4.0-11.0) Red Blood Count 4.96 MIL/MM3 4.82 MIL/MM3 (4.50-5.90) (4.50-5.90) Hemoglobin 13.3 GM/DL 12.9 GM/DL (13.0-17.0) (13.0-17.0) Hematocrit 42.0 % 41.0 % (39.0-51.0) (39.0-51.0) Mean Corpuscular Volume 84.8 FL 85.1 FL (80.0-100.0) (80.0-100.0) Mean Corpuscular Hemoglobin 26.9 PG 26.8 PG (27.0-34.0) (27.0-34.0) Mean Corpuscular Hemoglobin 31.7 % 31.5 % Concent (32.0-36.0) (32.0-36.0) Red Cell Distribution Width 15.0 % 14.9 % (11.6-17.2) (11.6-17.2) Platelet Count 287 TH/MM3 277 TH/MM3 (150-450) (150-450) Mean Platelet Volume 9.4 FL 9.6 FL (7.0-11.0) (7.0-11.0) Neutrophils (%) (Auto) 90.6 % 92.3 % (16.0-70.0) (16.0-70.0) Lymphocytes (%) (Auto) 3.8 % 2.8 % (9.0-44.0) (9.0-44.0) Monocytes (%) (Auto) 5.1 % (0.0-8.0) 4.3 % (0.0-8.0) Eosinophils (%) (Auto) 0.0 % (0.0-4.0) 0.1 % (0.0-4.0) Basophils (%) (Auto) 0.5 % (0.0-2.0) 0.5 % (0.0-2.0) Neutrophils # (Auto) 19.2 TH/MM3 19.8 TH/MM3 (1.8-7.7) (1.8-7.7) Lymphocytes # (Auto) 0.8 TH/MM3 0.6 TH/MM3 (1.0-4.8) (1.0-4.8) Monocytes # (Auto) 1.1 TH/MM3 0.9 TH/MM3 (0-0.9) (0-0.9) Eosinophils # (Auto) 0.0 TH/MM3 0.0 TH/MM3 (0-0.4) (0-0.4) Basophils # (Auto) 0.1 TH/MM3 0.1 TH/MM3 (0-0.2) (0-0.2) CBC Comment AUTO DIFF DIFF FINAL Differential Comment AUTO DIFF CONFIRMED Platelet Estimate NORMAL (NORMAL) Platelet Morphology Comment ENLARGED (NORMAL) Red Cell Morphology Comment NORMAL (NORMAL) Vancomycin Level Trough 8.0 MCG/ML (5.0-10.0) Test 2//17 2/8/17 13:30 04:45 Blood Gas Puncture Site RT RADIAL Blood Gas Patient Temperature 98.6 Blood Gas HCO3 32 mmol/L (22-26) Blood Gas Base Excess 7.1 mmol/L (-2-2) Blood Gas Oxygen Saturation 94 % (90-100) Arterial Blood pH 7.38 (7.380-7.420) Arterial Blood Partial 56 mmHg (38-42) Pressure CO2 Arterial Blood Partial 88 mmHg Pressure O2 (61-120) Arterial Blood Oxygen Content 17.9 Vol % (12.0-20.0) Arterial Blood 1.3 % (0-4) Carboxyhemoglobin Arterial Blood Methemoglobin 1.3 % (0-2) Blood Gas Hemoglobin 13.5 G/DL (12.0-16.0) Oxygen Delivery Device VENTILATOR Blood Gas Ventilator Setting PRVC Blood Gas Inspired Oxygen 80 % White Blood Count 17.3 TH/MM3 (4.0-11.0) Red Blood Count 4.58 MIL/MM3 (4.50-5.90) Hemoglobin 12.6 GM/DL (13.0-17.0) Hematocrit 38.4 % (39.0-51.0) Mean Corpuscular Volume 83.9 FL (80.0-100.0) Mean Corpuscular Hemoglobin 27.6 PG (27.0-34.0) Mean Corpuscular Hemoglobin 32.9 % Concent (32.0-36.0) Red Cell Distribution Width 14.6 % (11.6-17.2) Platelet Count 245 TH/MM3 (150-450) Mean Platelet Volume 9.6 FL (7.0-11.0) Neutrophils (%) (Auto) 90.6 % (16.0-70.0) Lymphocytes (%) (Auto) 4.2 % (9.0-44.0) Monocytes (%) (Auto) 5.0 % (0.0-8.0) Eosinophils (%) (Auto) 0.1 % (0.0-4.0) Basophils (%) (Auto) 0.1 % (0.0-2.0) Neutrophils # (Auto) 15.7 TH/MM3 (1.8-7.7) Lymphocytes # (Auto) 0.7 TH/MM3 (1.0-4.8) Monocytes # (Auto) 0.9 TH/MM3 (0-0.9) Eosinophils # (Auto) 0.0 TH/MM3 (0-0.4) Basophils # (Auto) 0.0 TH/MM3 (0-0.2) CBC Comment DIFF FINAL Differential Comment Sodium Level 138 MEQ/L (136-145) Potassium Level 4.3 MEQ/L (3.5-5.1) Chloride Level 96 MEQ/L (98-107) Carbon Dioxide Level 35.3 MEQ/L (21.0-32.0) Anion Gap 7 MEQ/L (5-15) Blood Urea Nitrogen 30 MG/DL (7-18) Creatinine 0.62 MG/DL (0.60-1.30) Estimat Glomerular Filtration 137 ML/MIN Rate (>89) Random Glucose 309 MG/DL (74-106) Calcium Level 8.5 MG/DL (8.5-10.1) Phosphorus Level 2.8 MG/DL (2.5-4.9) Magnesium Level 2.3 MG/DL (1.5-2.5) Result Diagram: 04/11/16 0445 04/11/16 0445 Microbiology Microbiology Date/Time Procedure Status Source Growth 04/08/16 22:30 Gram Stain - Final Complete Sputum Endotracheal 04/08/16 22:30 Sputum Culture - Final Complete Staphylococcus Aureus Imaging Last Impressions Chest X-Ray 04/11/16 0000 Signed Impressions: Service Date/Time: Monday, April 11, 2016 04:09 - CONCLUSION: No significant change has occurred. Henrry Andrea MD Abdomen X-Ray 03/31/16 0000 Signed Impressions: Service Date/Time: Thursday, March 31, 2016 09:58 - CONCLUSION: Benign abdomen. Rodrigo Martinez MD Chest CT 03/28/16 0836 Signed Impressions: Service Date/Time: Monday, March 28, 2016 09:57 - CONCLUSION: Development areas of air bronchograms and consolidation more prominent in the right and left posterior basilar segments of the lower lobes. ET tube above the chanelle. Bernard Hartman MD CT Angiography 03/24/16 1121 Signed Impressions: Service Date/Time: Thursday, March 24, 2016 12:47 - CONCLUSION: 1. There is respiratory motion artifact but no PE is identified through most of the segmental level pulmonary arteries. 2. Mildly enlarged main pulmonary artery may indicate pulmonary arterial hypertension. 3. 11 mm left lower lobe noncalcified pulmonary nodule. Suggest correlation with any prior imaging studies that could confirm longer-term stability. If none are available consider short-term followup noncontrast chest CT in approximately 3 months. Ubaldo Rodas MD Procedures 03/26intubated 03/26 left IJ central line 04/02right IJ central line . Assessment and Plan Disease Oriented Problem List: (1) Acute respiratory failure with hypoxia (2) Staphylococcus aureus pneumonia (3) Pulmonary edema (4) Hypoxia (5) JACOB (obstructive sleep apnea) (6) Pulmonary nodule, left (7) Obesity hypoventilation syndrome (8) Morbid obesity with BMI of 50.0-59.9, adult (9) Diabetes mellitus type 2 in obese Symptom Scale: Pertinent Non-Medical Issues Psychosocial:Patient is , shares an apartment locally with his brother. Apparently has 2 other siblings as well as 2 adult children who live in the [place] area. Has designated his brother Farhat as healthcare surrogate. 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 Spiritual: Legal:Patient is not able to participate in decision-making due to clinical condition. Has completed designation naming his brother Farhat as [facility]. Ethical issues impacting care: Important Contacts brother Farhat Leger [phone] ([facility]) Brother Gagandeep Leger [phone] . Prognosis This patient was admitted for further evaluation of obesity hypoventilation syndrome; absolutely developed acute respiratory failure requiring mechanical ventilation. Has continued to require high levels of ventilator support, though other organ functions remain preserved. Possible he can recover from this however currently remains in critical condition, prognosis guarded. . Code Status: Full Code (per attending documentation ) Plan * Legal decision maker: Patiently currently unable to participate in goals / decision-making due to clinical condition. It is unlikely that he will regain decision-making capacity. He has designated his brother Farhat as healthcare surrogate. * Goals: Recent meeting with 2 brothers and a sister indicate that Goals are aggressive, family seems to good understanding of current conditions and prognosis. 04/11/16: Farhat says he has spoken with the patient's two 20- something daughters in [place] and they want to continue aggressive care and full CODE STATUS. Farhat says he did discuss with them the poor prognosis. I encouraged him to encouraged them to come down here to see their father, and let him know that we would be happy to discuss this further with them also. He says he, the healthcare surrogate, would lean toward de-escalation of care but he wants to honor the daughter's wishes. * CODE STATUS: Full code. * SYMPTOMS: --Dyspnea-emergently intubated, has remained on high ventilator settings as well as prone bed. Currently vent asynchrony controlled with multiple sedatives as well as paralytic. (fentanyl, Versed, Diprivan, Nimbex) --Anxiety-risk for related to prolonged intubation, hospitalization, underlying respiratory issues; currently appears comfortable on multiple sedatives (fentanyl, Versed, Diprivan) * Palliative care will continue to follow during hospital course as condition evolves, to assist patient/decision-maker with understanding of medical conditions, weighing benefits/burdens of treatment options, for clarification of goals of treatment. Additionally will assist with any symptoms of palliative concern Attestation To help prompt me to consider important information that might be impacting today's encounter and assessment, information from prior notes written by myself or my colleagues may have been "brought forward" into today's note. My signature on this note, however, is an attestation that I personally performed the exam, history, and/or decision-making noted today, and, unless otherwise indicated, the interactions with patient, family, and staff as well as the review of records all occurred today. I also attest that the listed assessment and stated plan reflect my best clinical judgment today based on the combination of historical information, prior notes, and today's exam/ interactions. When time spent is documented, it refers only to time spent today by the signer, or if indicated, combined time spent today by collaborating physician/nurse practitioner. Jessica Leach MD Apr 11, 2016 14:29
[2016-04-11] MEDS: PANTOPRAZOLE SODIUM 40 MG VIAL IV PUSH SCH (17:30)
[2016-04-11] MEDS ORDERED: SODIUM CHLOR 0.9% 1000 ML INJ 2,000 ML IV ONE (21:00)
[2016-04-12] VITALS (19 sets, daily range): BP systolic 93–137; BP diastolic 56–85; PULSE 59–72; RESP 15; TEMP 98.2–99.3; O2SAT 90–100
[2016-04-12] MEDS: PROPOFOL 1000 MG/100 ML IV SCH ×10 (01:18→23:17)
[2016-04-12] MEDS: EPOPROSTENOL NEB SOLUTION 50 NG/KG/MIN 100 ML NEB SCH ×6 (01:57→17:54)
[2016-04-12] MEDS: RESP: ALBUTEROL 2.5 MG/IPRATROPIUM 0.5 MG NEB (PRN) NEB (03:52)
[2016-04-12] MEDS: CISATRACURIUM INJ 100 MG in SODIUM CHLOR 0.9% 250 ML INJ 240 ML IV SCH ×4 (04:00→22:11)
[2016-04-12 05:30] LABS: BLOOD GAS BASE EXCESS 5.7 mmol/L (-2-2); BLOOD GAS CARBOXYHEMOGLOBIN 1.3 % (0-4); BLOOD GAS HCO3 30 mmol/L (22-26); BLOOD GAS METHEMOGLOBIN 1.3 % (0-2); BLOOD GAS O2 HGB SATURATION 93 % (90-100); BLOOD GAS OXYGEN CONTENT 16.6 Vol % (12.0-20.0); BLOOD GAS PCO2 49 mmHg (38-42); BLOOD GAS PO2 85 mmHg (61-120); BLOOD GAS TOTAL HGB 12.6 G/DL (12.0-16.0); CRITICAL VALUE NO; OXYGEN DEVICE VENTILATOR; TEMP CORR TO 98.6
--- NOTE | 2016-04-12 05:30 | RADRPT ---
EXAM DATE/TIME: 04/12/2016 04:14 [place] COMPARISON: CHEST SINGLE AP, April 11, 2016, 4:09. INDICATIONS : Shortness of breath, possible pulmonary disease. MEDICAL HISTORY : Diabetes mellitus type II. SURGICAL HISTORY : None. ENCOUNTER: Subsequent ACUITY: 2 weeks PAIN SCORE: Non-responsive. LOCATION: Bilateral chest FINDINGS: There is a small right effusion and patchy airspace disease bilaterally greatest in the left midlung and right lung base. Endotracheal tube tip at the inferior margin of the clavicles. Right jugular mathieu e tip overlies the SVC. NG tube courses beneath the diaphragm. CONCLUSION: Worsening appearance of the chest. Henrry Andrea MD on April 12, 2016 at 5:28 Board Certified Radiologist. This report was verified electronically.
[2016-04-12 05:31] LABS: DRAW SITE RT BRACHIAL; FIO2 70 %; NUMBER OF ARTERIAL PUNCTURES 1; STAT NO; VENT SETTINGS PRVC/AC
[2016-04-12] MEDS: METOCLOPRAMIDE HCL 10 MG/2 ML VIAL IV PUSH SCH ×3 (05:54→21:37)
[2016-04-12] MEDS: ENOXAPARIN SODIUM 40 MG/0.4 ML SYRINGE SQ SCH ×2 (05:54→17:53)
[2016-04-12] MEDS: INSULIN NovoLIN REGULAR SUPPLEMENTAL SCALE SQ SCH ×4 (06:04→23:25)
[2016-04-12 07:18] LABS: AUTOMATED NEUTROPHIL # 13.6 TH/MM3 (1.8-7.7); BASOPHIL % 0.1 % (0.0-2.0); EOSINOPHIL # 0.1 TH/MM3 (0-0.4); EOSINOPHIL % 0.3 % (0.0-4.0); HEMATOCRIT 37.5 % (39.0-51.0); HEMO FLAGS DIFF FINAL; LYMPH % 5.7 % (9.0-44.0); LYMPHOCYTE # 0.9 TH/MM3 (1.0-4.8); MEAN CORPUSCULAR HEMOGLOBIN 26.8 PG (27.0-34.0); MEAN CORPUSCULAR HGB CONC 31.9 % (32.0-36.0); MONO % 5.9 % (0.0-8.0); PLATELET COUNT 235 TH/MM3 (150-450); RED BLOOD COUNT 4.46 MIL/MM3 (4.50-5.90); RED CELL DISTRIBUTION WIDTH 14.6 % (11.6-17.2); WHITE BLOOD COUNT 15.5 TH/MM3 (4.0-11.0)
[2016-04-12 07:44] LABS: ALKALINE PHOSPHATASE 60 U/L (45-117); ALT (GPT) 30 U/L (12-78); ANION GAP 8 MEQ/L (5-15); AST (GOT) 11 U/L (15-37); BICARBONATE 32.3 MEQ/L (21.0-32.0); BLOOD UREA NITROGEN 26 MG/DL (7-18); CHLORIDE 96 MEQ/L (98-107); GLOMERULAR FILTRATION RATE 151 ML/MIN (>89); MAGNESIUM 2.1 MG/DL (1.5-2.5); POTASSIUM 4.2 MEQ/L (3.5-5.1); SODIUM (NA) 136 MEQ/L (136-145); TOTAL BILIRUBIN ADULT 0.6 MG/DL (0.2-1.0)
[2016-04-12] MEDS ORDERED: PHARMACY ORDERED LAB XX ONE (07:45)
[2016-04-12] MEDS: CHLORHEXIDINE 0.12% (ORAL KIT) 15 ML CUP MT SCH ×2 (08:14→19:57)
[2016-04-12] MEDS: VANCOMYCIN INJ 2,000 MG in SODIUM CHLORID 0.9% 500 ML INJ 500 ML IV SCH (08:14)
[2016-04-12] MEDS: ARTIFICIAL TEARS OPTH OINT 3.5 APPLIC/3.5 GM TUBO EACH EYE SCH ×2 (08:15→19:58)
[2016-04-12] MEDS: DOCUSATE SODIUM 100 MG/10 ML UDC PO SCH ×2 (08:15→19:56)
[2016-04-12] MEDS: SENNOSIDES SYRUP 8.8 MG/5 ML CUP PO/TUBE SCH ×2 (08:15→19:56)
[2016-04-12] MEDS: FUROSEMIDE 20 MG/2 ML VIAL IV PUSH SCH ×4 (08:15→19:56)
[2016-04-12] MEDS: BETAMETHASONE/CLOTRIMAZOLE CREAM 15 GM TOPICAL SCH ×2 (08:15→19:58)
[2016-04-12] MEDS: INSULIN DETEMIR 100 UNITS/ML VIAL SQ SCH ×2 (08:15→19:57)
[2016-04-12] MEDS: SODIUM CHLORIDE 0.9% FLUSH 5 ML FLUSH IVF SCH (08:16)
[2016-04-12] MEDS: methylPREDNISolone SOD SUCC 40 MG/1 ML VIAL IV PUSH SCH ×2 (08:16→19:57)
[2016-04-12] MEDS: BENEPROTEIN POWDER 1 PACK G-TUBE SCH ×3 (08:16→17:53)
[2016-04-12] MEDS: LACTOBACILLUS ACIDOPHILUS TAB PO SCH ×3 (08:35→17:53)
[2016-04-12] MEDS: MIDAZOLAM 100 MG/ML INJ 100 ML IV SCH ×2 (10:47→19:57)
[2016-04-12] MEDS: fentaNYL 2,500 MCG/NS 250 ML IV SCH ×2 (10:47→18:54)
[2016-04-12] MEDS: LEVOFLOXACIN 750 MG PREMIX INJ 150 ML IV SCH (13:20)
--- NOTE | 2016-04-12 13:53 | HHI.IDPN ---
Subjective Subjective Remarks Notes reviewed D/W RN Temps ok. Tolerating 6 hours supine and the rest prone On the vent, FiO2 at 0.65 On rotaprone bed On multiple sedation, flolan and nimbex Getting TF, high residual (+) liquid stool BP good not on pressors Good UO Antibiotics Levaquin Flagyl Vanco Diflucan Lines TLC - 04/02 Past Medical History Reviewed Allergies: Coded Allergies: Penicillin (Verified Allergy, Severe, Swelling, 03/24/16) Tetanus Toxoid (Verified Allergy, Unknown, Swelling, 03/24/16) Objective . Vital Signs Date Time Temp Pulse Resp B/P Pulse Ox O2 Delivery O2 Flow Rate FiO2 04/12/16 12:00 69 04/12/16 12:00 65 04/12/16 12:00 98.7 69 15 106/56 95 04/12/16 11:22 96 65 04/12/16 10:00 68 04/12/16 08:00 70 04/12/16 08:00 98.5 65 15 93/59 94 04/12/16 08:00 65 04/12/16 07:45 93 70 04/12/16 06:00 70 04/12/16 04:17 97 70 04/12/16 04:00 98.9 61 15 137/79 97 04/12/16 04:00 61 04/12/16 04:00 70 04/12/16 02:00 62 04/12/16 01:05 100 70 04/12/16 00:00 75 04/12/16 00:00 99.3 72 15 115/56 98 04/12/16 00:00 72 04/11/16 22:23 98 75 04/11/16 22:00 66 04/11/16 20:00 99.0 63 15 76/46 92 04/11/16 20:00 63 04/11/16 20:00 75 04/11/16 19:45 92 75 04/11/16 18:00 60 04/11/16 16:00 98.5 64 15 124/72 94 04/11/16 16:00 75 04/11/16 16:00 64 04/11/16 15:09 95 75 04/11/16 14:00 64 04/11/16 04/11/16 04/12/16 15:00 23:00 07:00 Intake Total 1849 ml 2873 ml 2525 ml Output Total 2000 ml 2950 ml 1700 ml Balance -151 ml -77 ml 825 ml IV Total 1706 ml 2530 ml 2182 ml Tube Feeding 83 ml 283 ml 283 ml Other 60 ml 60 ml 60 ml Output Urine Total 2000 ml 2950 ml 1700 ml Stool Total 0 ml 0 ml . Laboratory Tests Test 04/11/16 04/12/16 04:45 06:35 White Blood Count 17.3 TH/MM3 15.5 TH/MM3 Red Blood Count 4.58 MIL/MM3 4.46 MIL/MM3 Hemoglobin 12.6 GM/DL 11.9 GM/DL Hematocrit 38.4 % 37.5 % Mean Corpuscular Volume 83.9 FL 84.0 FL Mean Corpuscular Hemoglobin 27.6 PG 26.8 PG Mean Corpuscular Hemoglobin 32.9 % 31.9 % Concent Red Cell Distribution Width 14.6 % 14.6 % Platelet Count 245 TH/MM3 235 TH/MM3 Mean Platelet Volume 9.6 FL 9.5 FL Neutrophils (%) (Auto) 90.6 % 88.0 % Lymphocytes (%) (Auto) 4.2 % 5.7 % Monocytes (%) (Auto) 5.0 % 5.9 % Eosinophils (%) (Auto) 0.1 % 0.3 % Basophils (%) (Auto) 0.1 % 0.1 % Neutrophils # (Auto) 15.7 TH/MM3 13.6 TH/MM3 Lymphocytes # (Auto) 0.7 TH/MM3 0.9 TH/MM3 Monocytes # (Auto) 0.9 TH/MM3 0.9 TH/MM3 Eosinophils # (Auto) 0.0 TH/MM3 0.1 TH/MM3 Basophils # (Auto) 0.0 TH/MM3 0.0 TH/MM3 CBC Comment DIFF FINAL DIFF FINAL Differential Comment Laboratory Tests Test 04/11/16 04/12/16 04:45 06:35 Sodium Level 138 MEQ/L 136 MEQ/L Potassium Level 4.3 MEQ/L 4.2 MEQ/L Chloride Level 96 MEQ/L 96 MEQ/L Carbon Dioxide Level 35.3 MEQ/L 32.3 MEQ/L Anion Gap 7 MEQ/L 8 MEQ/L Blood Urea Nitrogen 30 MG/DL 26 MG/DL Creatinine 0.62 MG/DL 0.57 MG/DL Estimat Glomerular Filtration 137 ML/MIN 151 ML/MIN Rate Random Glucose 309 MG/DL 257 MG/DL Calcium Level 8.5 MG/DL 8.4 MG/DL Phosphorus Level 2.8 MG/DL 3.3 MG/DL Magnesium Level 2.3 MG/DL 2.1 MG/DL Total Bilirubin 0.6 MG/DL Aspartate Amino Transf 11 U/L (AST/SGOT) Alanine Aminotransferase 30 U/L (ALT/SGPT) Alkaline Phosphatase 60 U/L Total Protein 6.0 GM/DL Albumin 2.5 GM/DL Imaging Last 48 hours Impressions Chest X-Ray 04/12/16 0600 Signed Impressions: Service Date/Time: April 04:14 - CONCLUSION: Worsening appearance of the chest. Henrry Andrea MD Chest X-Ray 04/11/16 0000 Signed Impressions: Service Date/Time: Monday, April 11, 2016 04:09 - CONCLUSION: No significant change has occurred. Henrry Andrea MD Chest X-Ray 04/09/16 09 Signed Impressions: Service Date/Time: Saturday, April 09, 2016 09:12 - CONCLUSION: 1. Diffuse alveolar consolidation of the left lung and right upper lung field consistent with pneumonia and/or asymmetric pulmonary edema. Clinical correlation is recommended. 2. Endotracheal tube has its tip 1 cm above the chanelle. This could be pulled back 2 cm for more optimal position. Farhat Montes MD Chest X-Ray 04/05/16599 Signed Impressions: Service Date/Time: April 03:25 - CONCLUSION: 1. Improved basilar consolidation. Residual versus developing right midlung consolidation. 2. Small bilateral pleural effusions are suspected. 3. No change cardiomegaly or lines/tubes. Ubaldo Ortiz MD Chest X-Ray 04/04/16599 Signed Impressions: Service Date/Time: Monday, April 04, 2016 04:44 - CONCLUSION: Worsening bilateral airspace opacities, especially left perihilar. Ubaldo Ortiz MD Chest X-Ray 04/04/16 06 Signed Impressions: Service Date/Time: Monday, April 04, 2016 04:44 - CONCLUSION: Worsening bilateral airspace opacities, especially left perihilar. Ubaldo Ortiz MD Chest X-Ray 04/03/16 0600 Signed Impressions: Service Date/Time: Sunday, April 03, 2016 00:16 - CONCLUSION: Potential developing pneumonia in the right upper lobe. Bibasilar atelectasis modestly worse in the interim. Ubaldo Ortiz MD Chest X-Ray 04/03/16 0600 Signed Impressions: Service Date/Time: Sunday, April 03, 2016 00:16 - CONCLUSION: Potential developing pneumonia in the right upper lobe. Bibasilar atelectasis modestly worse in the interim. Ubaldo Ortiz MD Chest X-Ray 04/02/16 0925 Signed Impressions: Service Date/Time: Saturday, April 02, 2016 09:22 - CONCLUSION: Place a right jugular catheter terminates superior vena cava with no pneumothorax. Bernard Hartman MD Chest X-Ray 04/01/16 0000 Signed Impressions: Service Date/Time: Friday, April 01, 2016 03:30 - CONCLUSION: No significant change has occurred. Henrry Andrea MD Abdomen X-Ray 03/31/16 0000 Signed Impressions: Service Date/Time: Thursday, March 31, 2016 09:58 - CONCLUSION: Benign abdomen. Rodrigo Martinez MD Chest X-Ray 03/30/16 0600 Signed Impressions: Service Date/Time: Wednesday, March 30, 2016 03:49 - CONCLUSION: No significant change has occurred. Henrry Andrea MD Physical Exam GENERAL: Morbidly obese, sedated and on paralytics, on the vent, He is on rotaprone bed, currently prone SKIN: Cool skin, no cyanosis FACE: Edematous, ET in place CHEST: Coarse BS bilaterally CARDIAC: regular, no murmur ABDOMEN: soft, obese, (+) BS : Becker in place MUSCULOSKELETAL: Extremities without clubbing, cyanosis. Has pedal edema and edema hands NEUROLOGICAL: Sedated and paralyzed on the vent. PSYCH: Unable to assess Assessment & Plan Remarks IMPRESSION Leukocytosis, improving - has been on adequate Abx for pathogens isolated - ?new HCAP, MSSA on C/S - UA ok - line placed 03/26 - no diarrhea Pneumonia, C/S MSSA - CXR worse, but has decreasing FiO2 JACOB Respiratory failure, improving O2 requirement - has extensive infiltrates Morbid obesity Allergy to PCN, swelling Fevers, intermittent, better RECOMMENDATION Continue Levaquin Stop Vancomycin Monitor progress On rotaprone bed Weaning per [facility] D/W Elisha Archer MD Apr 12, 2016 13:53
--- NOTE | 2016-04-12 14:30 | HHI.CCPN ---
Subjective Remarks/Hospital Course Patient is a 50 years old obese male with past medical history significant for undiagnosed sleep apnea, super morbid obesity, type 2 diabetes was brought to the emergency department on 03/24/16 after feeling light headed and dizzy. On presentation here was found to be hypoxemic and ABG showed severe hypoxemia and hypercarbia. For a recent driving physical he was diagnosed with low oxygen saturations. Patient's oxygen saturation the ED was in the low 80s, which was confirmed on ABG with a oxygen saturation of 78% and PO2 of 46. CTA negative for PE. Patient was initiated on BiPAP therapy with consult to pulmonary Dr. Crane. His oxygenation improved but he continued to be hypercapnic. Today a.m. on nasal cannula his pH was 7.26 and PCO2 was increased at 99, patient was somnolent was placed back on BiPAP and repeat ABG at noon showed pH 7.26 PCO2 98 and pO2 70. This was on 16 BiPAP with FiO2 50%. Critical care was consulted. On my evaluation patient is somnolent but wakes up easily. I reduced the PEEP on BiPAP from 12-7 to facilitate better ventilation. A repeat ANG showed only minimal improvement, so decision made to intubate patient. Glidescope with #4 blade was used. Only propofol was used for induction. Initially I had a Grade 1-2 view, but I was unable to pass tube through the vocal cord to trachea in two attempts. Tube slipped out of Laryngeal opening both times. Dr Garrett intubated patient after NM paralysis with succinylcholine. Post intubation ABG showed improvement in hypercapnia and oxygenation. 03/27/16: Patient remains intubated heavily sedated with propofol and fentanyl. Remained severely hypoxemic on 100% FiO2, PEEP12, chest x-ray shows bibasilar infiltrates. Flagyl added. We'll give 1 dose of vancomycin-Adjust antibiotics according to cultures. Patient super morbid obesity may prevent Prone therapy 03/28: Remains hypoxic but ABG shows marginal improvement in oxygenation. WBC increasing 20.1 today. Start vancomycin scheduled. 03/29: Oxygenation is slightly improved. FiO2 reduced to 50% today. Chest x- ray remains unchanged. On sedation hold patient does wake up and follow commands. WBC count remains at 20 03/30 No acute events overnight. Sedated with Diprivan and Fentanyl. Had T: 100.1 at 4 am. WBC trending down 15.9 today from 20. 03/31 Patient remains sedated with Diprivan, Fentanyl and intubated. Tmax 100.1. Patient required increase O2 overnight now on ACV with PEEP: 12 and FIO2 70%. 04/01: Tmax 99.7. No bowel movement since admission. Patient has bowel sounds. Arousable on the ventilator. We'll attempt prone the patient paralyzed to increase oxygenation status. 04/02: MAXIMUM TEMPERATURE 100.9. Currently 97.7. 5 10 cc stools overnight. Placed on Roto prone yesterday. Saturations currently 94% on Flolan. Diuresed overnight. Creatinine still within normal limits. 04/03: Tmax 101. Currently 99.1. Positive BM. Did not tolerate not being unprone this AM. Saturations much improved prone. Tolerating tube feeding. Subjective 04/04: Tmax 100.8. Currently 98.8. +2 L past 24 hours. Attempt to on prone today. Positive BM. C. difficile negative. Remains paralyzed. 04/05: Remains sedated, orally intubated on neuromuscular blockade on mechanical ventilation. Remains on Rota prone bed. On insulin drip. 04/06: Remains sedated, orally intubated on neuromuscular blockade, on mechanical ventilation. Remains on Rota prone bed. Insulin drip continues. 04/07 Patient remains on Rotoprone bed sedated with Diprivan, Versed, Fentanyl in addition patient is on Nimbex. Afebrile. On Insulin drip 5u/hr. 04/08 Patient remains sedated and intubated and on Nimbex. Off insulin drip. On PRVC/AC with RR 15, TV 550, IT: 1.65, PEEP: 15 and FIO2 100%. T: 100.2 at 4 am. 04/09 Patient is sedated, intubated and remains on neuromuscular blockade. Vent setting unchanged. afebrile. 04/10 Patient remains sedated and intubated and on Nimbex. On PRVC/AC, RR 15, TV 500, PEEP: 15, FIO2 90%, IT:1.65, on Flolan drip. Remains on Rotoprone bed. 04/11 minimal improvement in oxygenation, FiO2 now at 75 - continue to improve oxygenation, worsening CXR Objective Vital Signs Date Time Temp Pulse Resp B/P Pulse Ox O2 Delivery O2 Flow Rate FiO2 04/12/16 14:00 59 04/12/16 12:00 65 04/12/16 12:00 98.7 15 106/56 95 Intake and Output 04/11/16 04/11/16 04/12/16 08:00 16:00 00:00 Intake Total 1470 ml 1849 ml 2873 ml Output Total 900 ml 2000 ml 2950 ml Balance 570 ml -151 ml -77 ml Result Diagram: 04/12/16 0635 04/12/16 0635 Other Results Laboratory Tests Test 04/12/16 05:19 Blood Gas Puncture Site RT BRACHIAL Blood Gas Patient Temperature 98.6 Blood Gas HCO3 30 mmol/L (22-26) Blood Gas Base Excess 5.7 mmol/L (-2-2) Blood Gas Oxygen Saturation 93 % (90-100) Arterial Blood pH 7.41 (7.380-7.420) Arterial Blood Partial 49 mmHg (38-42) Pressure CO2 Arterial Blood Partial 85 mmHg Pressure O2 (61-120) Arterial Blood Oxygen Content 16.6 Vol % (12.0-20.0) Arterial Blood 1.3 % (0-4) Carboxyhemoglobin Arterial Blood Methemoglobin 1.3 % (0-2) Blood Gas Hemoglobin 12.6 G/DL (12.0-16.0) Oxygen Delivery Device VENTILATOR Blood Gas Ventilator Setting PRVC/AC Blood Gas Inspired Oxygen 70 % Imaging Last Impressions Chest X-Ray 04/09/16 0900 Signed Impressions: Service Date/Time: Saturday, April 09, 2016 09:12 - CONCLUSION: 1. Diffuse alveolar consolidation of the left lung and right upper lung field consistent with pneumonia and/or asymmetric pulmonary edema. Clinical correlation is recommended. 2. Endotracheal tube has its tip 1 cm above the chanelle. This could be pulled back 2 cm for more optimal position. Farhat Montes MD Abdomen X-Ray 03/31/16 0000 Signed Impressions: Service Date/Time: Thursday, March 31, 2016 09:58 - CONCLUSION: Benign abdomen. Rodrigo Martinez MD Chest CT 03/28/16 0836 Signed Impressions: Service Date/Time: Monday, March 28, 2016 09:57 - CONCLUSION: Development areas of air bronchograms and consolidation more prominent in the right and left posterior basilar segments of the lower lobes. ET tube above the chanelle. Bernard Hartman MD CT Angiography 03/24/16 1121 Signed Impressions: Service Date/Time: Thursday, March 24, 2016 12:47 - CONCLUSION: 1. There is respiratory motion artifact but no PE is identified through most of the segmental level pulmonary arteries. 2. Mildly enlarged main pulmonary artery may indicate pulmonary arterial hypertension. 3. 11 mm left lower lobe noncalcified pulmonary nodule. Suggest correlation with any prior imaging studies that could confirm longer-term stability. If none are available consider short-term followup noncontrast chest CT in approximately 3 months. Ubaldo Rodas MD Objective Remarks GENERAL: 50-year-old male, critically ill. Orally intubated on mechanical ventilation, on sedation and neuromuscular blockade SKIN: Evidence of seborrheic dermatitis of the face HEAD: Atraumatic. Normocephalic. EYES: Pupils equal round and slightly reactive about 3 millimeters bilaterally. ENT: NG tube in place. NECK: Very large neck. Trachea midline. Right IJ clean dry and intact CARDIOVASCULAR: Distant heart sounds. RRR. S1, S2. No S4. Without murmur RESPIRATORY: Orally intubated on mechanical ventilation, Breath sounds equal bilaterally. Diminished breath sounds due to body habitus. GASTROINTESTINAL: Abdomen soft, obese, nontender. Severe central obesity MUSCULOSKELETAL: Extremities with trace to 1+ nonpitting bilateral lower extremity edema. NEUROLOGICAL: Intubated and paralyzed on the ventilator. Date of Insertion: Apr 02, 2016 Line: Central Venous Catheter Side: Right Location: Internal, Jugular A/P Assessment and Plan Acute respiratory failure - ARDS - On PRVC/AC with RR 15, TV 550, IT: 1.65, PEEP: 15 and FIO2 70%, decrease FIO2 as luna. - Bronchodilator therapy every 4 hours and as needed - intubated 03/26/16 - Continue Flolan at 50 ng/kg per minute for oxygenation. - Continue Solu-Medrol 40 mg IV q12 - Continue prone position Obstructive sleep apnea/ Obesity hypoventilation syndrome - Not an issue well intubated Staph aureus pneumonia - Continue with abx per ID - (Levaquin, Flagyl, Diflucan, Vanco) - Pancultured 2/5- NGTD Severe protein calorie malnutrition Hypoalbuminemia - Tube feeds with Glucerna 1.5@45ml/hr, - IV Protonix 40 mg IV daily - Colace, senna for bowel regimen - increased residuals - increase Reglan to 10mg Q8 Diabetes mellitus - On SSI ( high scale), increase Levemir 35u Q12 DVT GI prophylaxis -Bilateral lower extremity SCDs. IV Protonix 40 mg daily. Lovenox 40 mg sq BID LINES: -Right IJ CVL 04/02- present Palliative care to meet with family . Critical Care: The total critical care time was 35 minutes. Time to perform other separately billable procedures was not included in the critical care time. Jermaine Martini MD Apr 12, 2016 14:30
[2016-04-12] MEDS: PANTOPRAZOLE SODIUM 40 MG VIAL IV PUSH SCH (17:53)
[2016-04-13] VITALS (19 sets, daily range): BP systolic 101–131; BP diastolic 64–83; PULSE 59–78; RESP 15; TEMP 98.1–99.4; O2SAT 91–94
[2016-04-13] MEDS: EPOPROSTENOL NEB SOLUTION 50 NG/KG/MIN 100 ML NEB SCH ×6 (01:34→22:07)
[2016-04-13] MEDS: PROPOFOL 1000 MG/100 ML IV SCH ×8 (02:03→23:52)
[2016-04-13] MEDS: FUROSEMIDE 20 MG/2 ML VIAL IV PUSH SCH ×6 (02:31→19:57)
[2016-04-13] MEDS: CISATRACURIUM INJ 100 MG in SODIUM CHLOR 0.9% 250 ML INJ 240 ML IV SCH ×7 (04:29→22:23)
[2016-04-13] MEDS: ENOXAPARIN SODIUM 40 MG/0.4 ML SYRINGE SQ SCH ×2 (05:02→17:07)
[2016-04-13] MEDS: METOCLOPRAMIDE HCL 10 MG/2 ML VIAL IV PUSH SCH ×3 (05:02→22:07)
[2016-04-13] MEDS: fentaNYL 2,500 MCG/NS 250 ML IV SCH ×2 (05:02→16:22)
[2016-04-13 05:11] LABS: BLOOD GAS BASE EXCESS 6.9 mmol/L (-2-2); BLOOD GAS CARBOXYHEMOGLOBIN 1.4 % (0-4); BLOOD GAS HCO3 31 mmol/L (22-26); BLOOD GAS METHEMOGLOBIN 1.2 % (0-2); BLOOD GAS O2 HGB SATURATION 96 % (90-100); BLOOD GAS OXYGEN CONTENT 18.6 Vol % (12.0-20.0); BLOOD GAS PCO2 41 mmHg (38-42); BLOOD GAS PO2 108 mmHg (61-120); BLOOD GAS TOTAL HGB 13.7 G/DL (12.0-16.0); CRITICAL VALUE NO; OXYGEN DEVICE VENTILATOR; TEMP CORR TO 98.6
[2016-04-13 05:12] LABS: VENT SETTINGS PRVC/AC
[2016-04-13 05:13] LABS: DRAW SITE RT BRACHIAL; FIO2 65 %; NUMBER OF ARTERIAL PUNCTURES 2; STAT NO; ULNAR PULSE PRESENT
[2016-04-13] MEDS: INSULIN NovoLIN REGULAR SUPPLEMENTAL SCALE SQ SCH ×4 (05:56→23:43)
[2016-04-13 06:01] LABS: AUTOMATED NEUTROPHIL # 15.6 TH/MM3 (1.8-7.7); BASOPHIL # 0.1 TH/MM3 (0-0.2); BASOPHIL % 0.5 % (0.0-2.0); EOSINOPHIL # 0.1 TH/MM3 (0-0.4); EOSINOPHIL % 0.5 % (0.0-4.0); HEMATOCRIT 39.2 % (39.0-51.0); LYMPH % 5.9 % (9.0-44.0); MEAN CELL VOLUME 82.3 FL (80.0-100.0); MEAN CORPUSCULAR HEMOGLOBIN 26.9 PG (27.0-34.0); MEAN CORPUSCULAR HGB CONC 32.7 % (32.0-36.0); MONO % 4.6 % (0.0-8.0); NEUT % 88.5 % (16.0-70.0); PLATELET COUNT 290 TH/MM3 (150-450); RED BLOOD COUNT 4.76 MIL/MM3 (4.50-5.90); RED CELL DISTRIBUTION WIDTH 14.7 % (11.6-17.2); WHITE BLOOD COUNT 17.6 TH/MM3 (4.0-11.0)
[2016-04-13 06:19] LABS: ALT (GPT) 34 U/L (12-78); ANION GAP 9 MEQ/L (5-15); AST (GOT) 14 U/L (15-37); BICARBONATE 36.3 MEQ/L (21.0-32.0); BLOOD UREA NITROGEN 28 MG/DL (7-18); CHLORIDE 93 MEQ/L (98-107); GLOMERULAR FILTRATION RATE 145 ML/MIN (>89); MAGNESIUM 2.2 MG/DL (1.5-2.5); POTASSIUM 3.6 MEQ/L (3.5-5.1); SODIUM (NA) 138 MEQ/L (136-145)
[2016-04-13 06:21] LABS: ALKALINE PHOSPHATASE 59 U/L (45-117); TOTAL BILIRUBIN ADULT 0.7 MG/DL (0.2-1.0)
[2016-04-13 06:31] LABS: HEMO FLAGS AUTO DIFF
[2016-04-13 07:15] LABS: METAMYELOCYTES 2 % (0-1); NEUTROPHIL # MANUAL DIFF 15.3 TH/MM3 (1.8-7.7); POLYS (SEG NEUTROPHILS) 85 % (16-70); SCAN/DIFF FINAL DIFF MANUAL; WBC DIFF SAMPLE 100
[2016-04-13 07:16] LABS: PLATELET ESTIMATE SMEAR NORMAL (NORMAL); PLATELET MORPHOLOGY NORMAL (NORMAL); STOMATOCYTES 1+ (NORMAL)
[2016-04-13] MEDS: MIDAZOLAM 100 MG/ML INJ 100 ML IV SCH (07:43)
[2016-04-13] MEDS: CHLORHEXIDINE 0.12% (ORAL KIT) 15 ML CUP MT SCH ×2 (07:43→19:58)
[2016-04-13] MEDS: DOCUSATE SODIUM 100 MG/10 ML UDC PO SCH ×2 (08:28→19:56)
[2016-04-13] MEDS: SENNOSIDES SYRUP 8.8 MG/5 ML CUP PO/TUBE SCH ×2 (08:28→19:56)
[2016-04-13] MEDS: ARTIFICIAL TEARS OPTH OINT 3.5 APPLIC/3.5 GM TUBO EACH EYE SCH ×2 (08:29→19:57)
[2016-04-13] MEDS: INSULIN DETEMIR 100 UNITS/ML VIAL SQ SCH ×2 (08:29→19:57)
[2016-04-13] MEDS: LACTOBACILLUS ACIDOPHILUS TAB PO SCH ×3 (08:29→17:07)
[2016-04-13] MEDS: methylPREDNISolone SOD SUCC 40 MG/1 ML VIAL IV PUSH SCH ×2 (08:29→19:56)
[2016-04-13] MEDS: BENEPROTEIN POWDER 1 PACK G-TUBE SCH ×3 (08:29→17:07)
[2016-04-13] MEDS: BETAMETHASONE/CLOTRIMAZOLE CREAM 15 GM TOPICAL SCH ×2 (08:30→19:58)
[2016-04-13] MEDS: SODIUM CHLORIDE 0.9% FLUSH 5 ML FLUSH IVF SCH (08:44)
--- NOTE | 2016-04-13 09:24 | HHI.IDPN ---
Subjective Subjective Remarks Notes reviewed D/W RN Temps ok. On the vent, FiO2 at 0.65 On rotaprone bed, currently supine On multiple sedation, flolan and nimbex Tolerating TF (+) liquid stool BP good not on pressors Good UO Antibiotics Levaquin Flagyl Lines TLC - 04/02 Past Medical History Reviewed Allergies: Coded Allergies: Penicillin (Verified Allergy, Severe, Swelling, 03/24/16) Tetanus Toxoid (Verified Allergy, Unknown, Swelling, 03/24/16) Objective . Vital Signs Date Time Temp Pulse Resp B/P Pulse Ox O2 Delivery O2 Flow Rate FiO2 04/13/16 08:00 98.1 75 15 101/70 93 04/13/16 08:00 75 04/13/16 08:00 65 04/13/16 07:26 93 65 04/13/16 06:00 66 04/13/16 04:02 93 65 04/13/16 04:00 99.0 60 15 123/80 92 04/13/16 04:00 65 04/13/16 04:00 60 04/13/16 02:00 59 04/13/16 01:02 94 65 04/13/16 00:00 98.7 67 15 128/83 93 04/13/16 00:00 65 04/13/16 00:00 67 04/12/16 22:03 93 65 04/12/16 22:00 68 04/12/16 20:00 98.2 64 15 102/66 90 04/12/16 20:00 62 04/12/16 20:00 65 04/12/16 19:02 92 65 04/12/16 18:00 62 04/12/16 16:23 95 65 04/12/16 16:00 98.2 60 15 136/85 95 04/12/16 16:00 60 04/12/16 16:00 65 04/12/16 14:00 59 04/12/16 12:00 69 04/12/16 12:00 65 04/12/16 12:00 98.7 69 15 106/56 95 04/12/16 11:22 96 65 04/12/16 10:00 68 04/12/16 04/12/16 04/13/16 15:00 23:00 07:00 Intake Total 1769 ml 1741 ml 1465 ml Output Total 2650 ml 5075 ml 2050 ml Balance -881 ml -3334 ml -585 ml IV Total 1459 ml 1320 ml 1055 ml Tube Feeding 210 ml 321 ml 360 ml Tube Irrigant 100 ml Other 100 ml 50 ml Output Urine Total 2550 ml 4775 ml 1950 ml Stool Total 100 ml 300 ml 100 ml . Laboratory Tests Test 04/12/16 04/13/16 06:35 05:08 White Blood Count 15.5 TH/MM3 17.6 TH/MM3 Red Blood Count 4.46 MIL/MM3 4.76 MIL/MM3 Hemoglobin 11.9 GM/DL 12.8 GM/DL Hematocrit 37.5 % 39.2 % Mean Corpuscular Volume 84.0 FL 82.3 FL Mean Corpuscular Hemoglobin 26.8 PG 26.9 PG Mean Corpuscular Hemoglobin 31.9 % 32.7 % Concent Red Cell Distribution Width 14.6 % 14.7 % Platelet Count 235 TH/MM3 290 TH/MM3 Mean Platelet Volume 9.5 FL 9.5 FL Neutrophils (%) (Auto) 88.0 % 88.5 % Lymphocytes (%) (Auto) 5.7 % 5.9 % Monocytes (%) (Auto) 5.9 % 4.6 % Eosinophils (%) (Auto) 0.3 % 0.5 % Basophils (%) (Auto) 0.1 % 0.5 % Neutrophils # (Auto) 13.6 TH/MM3 15.6 TH/MM3 Lymphocytes # (Auto) 0.9 TH/MM3 1.0 TH/MM3 Monocytes # (Auto) 0.9 TH/MM3 0.8 TH/MM3 Eosinophils # (Auto) 0.1 TH/MM3 0.1 TH/MM3 Basophils # (Auto) 0.0 TH/MM3 0.1 TH/MM3 CBC Comment DIFF FINAL AUTO DIFF Differential Comment FINAL DIFF MANUAL Differential Total Cells 100 Counted Neutrophils % (Manual) 85 % Lymphocytes % 8 % Monocytes % 5 % Neutrophils # (Manual) 15.3 TH/MM3 Metamyelocytes 2 % Platelet Estimate NORMAL Platelet Morphology Comment NORMAL Stomatocytes 1+ Laboratory Tests Test 04/12/16 04/13/16 06:35 05:08 Sodium Level 136 MEQ/L 138 MEQ/L Potassium Level 4.2 MEQ/L 3.6 MEQ/L Chloride Level 96 MEQ/L 93 MEQ/L Carbon Dioxide Level 32.3 MEQ/L 36.3 MEQ/L Anion Gap 8 MEQ/L 9 MEQ/L Blood Urea Nitrogen 26 MG/DL 28 MG/DL Creatinine 0.57 MG/DL 0.59 MG/DL Estimat Glomerular Filtration 151 ML/MIN 145 ML/MIN Rate Random Glucose 257 MG/DL 260 MG/DL Calcium Level 8.4 MG/DL 8.6 MG/DL Phosphorus Level 3.3 MG/DL 3.4 MG/DL Magnesium Level 2.1 MG/DL 2.2 MG/DL Total Bilirubin 0.6 MG/DL 0.7 MG/DL Aspartate Amino Transf 11 U/L 14 U/L (AST/SGOT) Alanine Aminotransferase 30 U/L 34 U/L (ALT/SGPT) Alkaline Phosphatase 60 U/L 59 U/L Total Protein 6.0 GM/DL 6.5 GM/DL Albumin 2.5 GM/DL 2.7 GM/DL Imaging Last 48 hours Impressions Chest X-Ray 04/12/16 0600 Signed Impressions: Service Date/Time: April 04:14 - CONCLUSION: Worsening appearance of the chest. Henrry Andrea MD Chest X-Ray 04/11/16 0000 Signed Impressions: Service Date/Time: Monday, April 11, 2016 04:09 - CONCLUSION: No significant change has occurred. Henrry Andrea MD Chest X-Ray 04/09/16 0900 Signed Impressions: Service Date/Time: Saturday, April 09, 2016 09:12 - CONCLUSION: 1. Diffuse alveolar consolidation of the left lung and right upper lung field consistent with pneumonia and/or asymmetric pulmonary edema. Clinical correlation is recommended. 2. Endotracheal tube has its tip 1 cm above the chanelle. This could be pulled back 2 cm for more optimal position. Farhat Montes MD Chest X-Ray 04/05/16 0600 Signed Impressions: Service Date/Time: April 03:25 - CONCLUSION: 1. Improved basilar consolidation. Residual versus developing right midlung consolidation. 2. Small bilateral pleural effusions are suspected. 3. No change cardiomegaly or lines/tubes. Ubaldo Ortiz MD Chest X-Ray 04/04/16 06 Signed Impressions: Service Date/Time: Monday, April 04, 2016 04:44 - CONCLUSION: Worsening bilateral airspace opacities, especially left perihilar. Ubaldo Ortiz MD Chest X-Ray 04/04/16 06 Signed Impressions: Service Date/Time: Monday, April 04, 2016 04:44 - CONCLUSION: Worsening bilateral airspace opacities, especially left perihilar. Ubaldo Ortiz MD Chest X-Ray 04/03/16 0600 Signed Impressions: Service Date/Time: Sunday, April 03, 2016 00:16 - CONCLUSION: Potential developing pneumonia in the right upper lobe. Bibasilar atelectasis modestly worse in the interim. Ubaldo Ortiz MD Chest X-Ray 04/03/16 06 Signed Impressions: Service Date/Time: Sunday, April 03, 2016 00:16 - CONCLUSION: Potential developing pneumonia in the right upper lobe. Bibasilar atelectasis modestly worse in the interim. Ubaldo Ortiz MD Chest X-Ray 04/02/16 0925 Signed Impressions: Service Date/Time: Saturday, April 02, 2016 09:22 - CONCLUSION: Place a right jugular catheter terminates superior vena cava with no pneumothorax. Bernard Hartman MD Chest X-Ray 04/01/16 0000 Signed Impressions: Service Date/Time: Friday, April 01, 2016 03:30 - CONCLUSION: No significant change has occurred. Henrry Andrea MD Abdomen X-Ray 03/31/16 0000 Signed Impressions: Service Date/Time: Thursday, March 31, 2016 09:58 - CONCLUSION: Benign abdomen. Rodrigo Martinez MD Chest X-Ray 03/30/16 0600 Signed Impressions: Service Date/Time: Wednesday, March 30, 2016 03:49 - CONCLUSION: No significant change has occurred. Henrry Andrea MD Physical Exam GENERAL: Morbidly obese, sedated and on paralytics, on the vent, He is on rotaprone bed, currently supine SKIN: Cool skin, no cyanosis FACE: Edematous, ET in place CHEST: Coarse BS bilaterally CARDIAC: regular, no murmur ABDOMEN: soft, obese, (+) BS : Becker in place MUSCULOSKELETAL: Extremities without clubbing, cyanosis. Has pedal edema and edema hands NEUROLOGICAL: Sedated and paralyzed on the vent. PSYCH: Unable to assess Assessment & Plan Remarks IMPRESSION Leukocytosis, up again - has been on adequate Abx for pathogens isolated - ?new HCAP, MSSA on C/S - UA ok - line placed 03/26 - no diarrhea Pneumonia, C/S MSSA - CXR worse, but has decreasing FiO2 JACOB Respiratory failure, improving O2 requirement - has extensive infiltrates Morbid obesity Allergy to PCN, swelling Fevers, intermittent, better RECOMMENDATION Continue Levaquin Follow CBC Monitor progress On rotaprone bed Weaning per [facility] D/W RN Dr Marina Sauceda available if needed this weekend Elisha Painter MD Apr 13, 2016 09:24
--- NOTE | 2016-04-13 13:28 | HHI.CCPN ---
Subjective Remarks/Hospital Course Patient is a 50 years old obese male with past medical history significant for undiagnosed sleep apnea, super morbid obesity, type 2 diabetes was brought to the emergency department on 03/24/16 after feeling light headed and dizzy. On presentation here was found to be hypoxemic and ABG showed severe hypoxemia and hypercarbia. For a recent driving physical he was diagnosed with low oxygen saturations. Patient's oxygen saturation the ED was in the low 80s, which was confirmed on ABG with a oxygen saturation of 78% and PO2 of 46. CTA negative for PE. Patient was initiated on BiPAP therapy with consult to pulmonary Dr. Crane. His oxygenation improved but he continued to be hypercapnic. Today a.m. on nasal cannula his pH was 7.26 and PCO2 was increased at 99, patient was somnolent was placed back on BiPAP and repeat ABG at noon showed pH 7.26 PCO2 98 and pO2 70. This was on 16 BiPAP with FiO2 50%. Critical care was consulted. On my evaluation patient is somnolent but wakes up easily. I reduced the PEEP on BiPAP from 12-7 to facilitate better ventilation. A repeat ANG showed only minimal improvement, so decision made to intubate patient. Glidescope with #4 blade was used. Only propofol was used for induction. Initially I had a Grade 1-2 view, but I was unable to pass tube through the vocal cord to trachea in two attempts. Tube slipped out of Laryngeal opening both times. Dr Garrett intubated patient after NM paralysis with succinylcholine. Post intubation ABG showed improvement in hypercapnia and oxygenation. 03/27/16: Patient remains intubated heavily sedated with propofol and fentanyl. Remained severely hypoxemic on 100% FiO2, PEEP12, chest x-ray shows bibasilar infiltrates. Flagyl added. We'll give 1 dose of vancomycin-Adjust antibiotics according to cultures. Patient super morbid obesity may prevent Prone therapy 03/28: Remains hypoxic but ABG shows marginal improvement in oxygenation. WBC increasing 20.1 today. Start vancomycin scheduled. 03/29: Oxygenation is slightly improved. FiO2 reduced to 50% today. Chest x- ray remains unchanged. On sedation hold patient does wake up and follow commands. WBC count remains at 20 03/30 No acute events overnight. Sedated with Diprivan and Fentanyl. Had T: 100.1 at 4 am. WBC trending down 15.9 today from 20. 03/31 Patient remains sedated with Diprivan, Fentanyl and intubated. Tmax 100.1. Patient required increase O2 overnight now on ACV with PEEP: 12 and FIO2 70%. 04/01: Tmax 99.7. No bowel movement since admission. Patient has bowel sounds. Arousable on the ventilator. We'll attempt prone the patient paralyzed to increase oxygenation status. 04/02: MAXIMUM TEMPERATURE 100.9. Currently 97.7. 5 10 cc stools overnight. Placed on Roto prone yesterday. Saturations currently 94% on Flolan. Diuresed overnight. Creatinine still within normal limits. 04/03: Tmax 101. Currently 99.1. Positive BM. Did not tolerate not being unprone this AM. Saturations much improved prone. Tolerating tube feeding. Subjective 04/04: Tmax 100.8. Currently 98.8. +2 L past 24 hours. Attempt to on prone today. Positive BM. C. difficile negative. Remains paralyzed. 04/05: Remains sedated, orally intubated on neuromuscular blockade on mechanical ventilation. Remains on Rota prone bed. On insulin drip. 04/06: Remains sedated, orally intubated on neuromuscular blockade, on mechanical ventilation. Remains on Rota prone bed. Insulin drip continues. 04/07 Patient remains on Rotoprone bed sedated with Diprivan, Versed, Fentanyl in addition patient is on Nimbex. Afebrile. On Insulin drip 5u/hr. 04/08 Patient remains sedated and intubated and on Nimbex. Off insulin drip. On PRVC/AC with RR 15, TV 550, IT: 1.65, PEEP: 15 and FIO2 100%. T: 100.2 at 4 am. 04/09 Patient is sedated, intubated and remains on neuromuscular blockade. Vent setting unchanged. afebrile. 04/10 Patient remains sedated and intubated and on Nimbex. On PRVC/AC, RR 15, TV 500, PEEP: 15, FIO2 90%, IT:1.65, on Flolan drip. Remains on Rotoprone bed. 04/11 minimal improvement in oxygenation, FiO2 now at 75 - continue to improve oxygenation, worsening CXR Objective Vital Signs Date Time Temp Pulse Resp B/P Pulse Ox O2 Delivery O2 Flow Rate FiO2 04/13/16 12:00 65 04/13/16 12:00 99.4 75 15 131/76 91 Intake and Output 04/12/16 04/12/16 04/13/16 08:00 16:00 00:00 Intake Total 2525 ml 1769 ml 1741 ml Output Total 1700 ml 3500 ml 4225 ml Balance 825 ml -1731 ml -2484 ml Result Diagram: 04/13/16 0508 04/13/16 0508 Other Results Laboratory Tests Test 04/13/16 05:00 Blood Gas Puncture Site RT BRACHIAL Blood Gas Patient Temperature 98.6 Blood Gas HCO3 31 mmol/L (22-26) Blood Gas Base Excess 6.9 mmol/L (-2-2) Blood Gas Oxygen Saturation 96 % (90-100) Arterial Blood pH 7.48 (7.380-7.420) Arterial Blood Partial 41 mmHg (38-42) Pressure CO2 Arterial Blood Partial 108 mmHg Pressure O2 (61-120) Arterial Blood Oxygen Content 18.6 Vol % (12.0-20.0) Arterial Blood 1.4 % (0-4) Carboxyhemoglobin Arterial Blood Methemoglobin 1.2 % (0-2) Blood Gas Hemoglobin 13.7 G/DL (12.0-16.0) Oxygen Delivery Device VENTILATOR Blood Gas Ventilator Setting PRVC/AC Blood Gas Inspired Oxygen 65 % Imaging Last Impressions Chest X-Ray 04/09/16 0900 Signed Impressions: Service Date/Time: Saturday, April 09, 2016 09:12 - CONCLUSION: 1. Diffuse alveolar consolidation of the left lung and right upper lung field consistent with pneumonia and/or asymmetric pulmonary edema. Clinical correlation is recommended. 2. Endotracheal tube has its tip 1 cm above the chanelle. This could be pulled back 2 cm for more optimal position. Farhat Montes MD Abdomen X-Ray 03/31/16 0000 Signed Impressions: Service Date/Time: Thursday, March 31, 2016 09:58 - CONCLUSION: Benign abdomen. Rodrigo Martinez MD Chest CT 03/28/16 0836 Signed Impressions: Service Date/Time: Monday, March 28, 2016 09:57 - CONCLUSION: Development areas of air bronchograms and consolidation more prominent in the right and left posterior basilar segments of the lower lobes. ET tube above the chanelle. Bernard Hartman MD CT Angiography 03/24/16 1121 Signed Impressions: Service Date/Time: Thursday, March 24, 2016 12:47 - CONCLUSION: 1. There is respiratory motion artifact but no PE is identified through most of the segmental level pulmonary arteries. 2. Mildly enlarged main pulmonary artery may indicate pulmonary arterial hypertension. 3. 11 mm left lower lobe noncalcified pulmonary nodule. Suggest correlation with any prior imaging studies that could confirm longer-term stability. If none are available consider short-term followup noncontrast chest CT in approximately 3 months. Ubaldo Rodas MD Objective Remarks GENERAL: 50-year-old male, critically ill. Orally intubated on mechanical ventilation, on sedation and neuromuscular blockade SKIN: Evidence of seborrheic dermatitis of the face HEAD: Atraumatic. Normocephalic. EYES: Pupils equal round and slightly reactive about 3 millimeters bilaterally. ENT: NG tube in place. NECK: Very large neck. Trachea midline. Right IJ clean dry and intact CARDIOVASCULAR: Distant heart sounds. RRR. S1, S2. No S4. Without murmur RESPIRATORY: Orally intubated on mechanical ventilation, Breath sounds equal bilaterally. Diminished breath sounds due to body habitus. GASTROINTESTINAL: Abdomen soft, obese, nontender. Severe central obesity MUSCULOSKELETAL: Extremities with trace to 1+ nonpitting bilateral lower extremity edema. NEUROLOGICAL: Intubated and paralyzed on the ventilator. Date of Insertion: Apr 02, 2016 Line: Central Venous Catheter Side: Right Location: Internal, Jugular A/P Assessment and Plan Acute respiratory failure - ARDS - Continues to improve and oxygenation - We'll discontinue prone position -We will continue PRVC/AC with RR 15, TV 550, IT: 1.65, PEEP: 15 and FIO2 65%, decrease FIO2 as luna. - Bronchodilator therapy every 4 hours and as needed - intubated 03/26/16 - Continue Flolan at 50 ng/kg per minute for oxygenation. - Continue Solu-Medrol 40 mg IV q12 - Continue prone position Obstructive sleep apnea/ Obesity hypoventilation syndrome - Not an issue well intubated Staph aureus pneumonia - Continue with abx per ID - (Levaquin, Flagyl, Diflucan, Vanco) - Pancultured 2/5- NGTD - ID consult appreciated Severe protein calorie malnutrition Hypoalbuminemia - Tube feeds with Glucerna 1.5@45ml/hr, - IV Protonix 40 mg IV daily - Colace, senna for bowel regimen - increased residuals - increase Reglan to 10mg Q8 Diabetes mellitus - On SSI ( high scale), increase Levemir 35u Q12 DVT GI prophylaxis -Bilateral lower extremity SCDs. IV Protonix 40 mg daily. Lovenox 40 mg sq BID LINES: -Right IJ CVL 04/02- present Critical Care: The total critical care time was 35 minutes. Time to perform other separately billable procedures was not included in the critical care time. Jermaine Martini MD Apr 13, 2016 13:28
[2016-04-13] MEDS: LEVOFLOXACIN 750 MG PREMIX INJ 150 ML IV SCH (13:58)
--- NOTE | 2016-04-13 15:07 | HHI.HCPN ---
Reason for visit a. To assist with evaluation and management of symptoms including: Dyspnea, anxiety b. To assist medical decision maker(s) with: better understanding of current medical conditions; weighing benefits/burdens of medical treatment options; making medical treatment decisions. Subjective/Interval History Patient seen today in [facility] in Rotoprone bed, fio2 decreased to 65%. CXR 04/12 worsening. remains on fentanyl, versed,nimbex, and propofol. Plans to move to regular bed today, no improvement thus far on Rotoprone bed. Hemodynamics stable not req. pressors. UOP adqt. Labs stable. Pt examined in , no visitors present. Call to [facility] Farhat following exam, left. . Advance Directives Living Will: Completed, but not made available Health Care Surrogate: Copy in medical record Durable Power of Lumber Mover: Completed, but not made available Advance Directive Specifics Date completed: 2016 Health Care Surrogate(s): Names brother Farhat Leger as [facility] Objective Vital Signs Date Time Temp Pulse Resp B/P Pulse Ox O2 Delivery O2 Flow Rate FiO2 04/13/16 14:00 78 04/13/16 12:00 65 04/13/16 12:00 99.4 75 15 131/76 91 04/13/16 12:00 75 04/13/16 11:54 92 65 04/13/16 10:00 70 04/13/16 08:00 98.1 75 15 101/70 93 04/13/16 08:00 75 04/13/16 08:00 65 04/13/16 07:26 93 65 04/13/16 06:00 66 04/13/16 04:02 93 65 04/13/16 04:00 99.0 60 15 123/80 92 04/13/16 04:00 65 04/13/16 04:00 60 04/13/16 02:00 59 04/13/16 01:02 94 65 04/13/16 00:00 98.7 67 15 128/83 93 04/13/16 00:00 65 04/13/16 00:00 67 04/12/16 22:03 93 65 04/12/16 22:00 68 04/12/16 20:00 98.2 64 15 102/66 90 04/12/16 20:00 62 04/12/16 20:00 65 04/12/16 19:02 92 65 04/12/16 18:00 62 04/12/16 16:23 95 65 04/12/16 16:00 98.2 60 15 136/85 95 04/12/16 16:00 60 04/12/16 16:00 65 Intake & Output 04/13/16 04/13/16 07:00 19:00 Intake Total 3206 ml Output Total 5050 ml Balance -1844 ml IV Total 2375 ml Tube Feeding 681 ml Other 150 ml Output Urine Total 4650 ml Stool Total 400 ml Physical Exam CONSTITUTIONAL/GENERAL: This is a morbidly obese, critically ill-appearing patient [facility]--patient currently supine TUBES/LINES/DRAINS: ET tube, OG tube, central line, Becker catheter, rectal drain SKIN: No jaundice, rashes, or lesions.no wounds seen posteriorly. Significant generalized edema especially to face. CARDIOVASCULAR: Regular rate and rhythm without murmurs.distant heart sounds. No JVD. Peripheral pulses symmetric. RESPIRATORY/CHEST: Symmetric, unlabored respirations via ET tube to mechanical vent. Decreased air movement throughout, scattered rhonchi. GASTROINTESTINAL: Abdomen soft, obese. Unable to determine to tenderness. TF infusing via OG tube. +liq stool via rectal drain MUSCULOSKELETAL: Extremities without clubbing, cyanosis. Significant generalized edema, catia facial NEUROLOGICAL: Nonresponsive to exam, on sedatives as well as pharmacological paralytic. PSYCHIATRIC: No obvious anxiety/depression--limited exam due to clinical condition, medications . Diagnostic Tests Laboratory Laboratory Tests Test 04/11/16 04/12/16 04/12/16 04/12/16 04:45 05:19 06:35 07:40 White Blood Count 17.3 TH/MM3 15.5 TH/MM3 (4.0-11.0) (4.0-11.0) Red Blood Count 4.58 MIL/MM3 4.46 MIL/MM3 (4.50-5.90) (4.50-5.90) Hemoglobin 12.6 GM/DL 11.9 GM/DL (13.0-17.0) (13.0-17.0) Hematocrit 38.4 % 37.5 % (39.0-51.0) (39.0-51.0) Mean Corpuscular Volume 83.9 FL 84.0 FL (80.0-100.0) (80.0-100.0) Mean Corpuscular Hemoglobin 27.6 PG 26.8 PG (27.0-34.0) (27.0-34.0) Mean Corpuscular Hemoglobin 32.9 % 31.9 % Concent (32.0-36.0) (32.0-36.0) Red Cell Distribution Width 14.6 % 14.6 % (11.6-17.2) (11.6-17.2) Platelet Count 245 TH/MM3 235 TH/MM3 (150-450) (150-450) Mean Platelet Volume 9.6 FL 9.5 FL (7.0-11.0) (7.0-11.0) Neutrophils (%) (Auto) 90.6 % 88.0 % (16.0-70.0) (16.0-70.0) Lymphocytes (%) (Auto) 4.2 % 5.7 % (9.0-44.0) (9.0-44.0) Monocytes (%) (Auto) 5.0 % (0.0-8.0) 5.9 % (0.0-8.0) Eosinophils (%) (Auto) 0.1 % (0.0-4.0) 0.3 % (0.0-4.0) Basophils (%) (Auto) 0.1 % (0.0-2.0) 0.1 % (0.0-2.0) Neutrophils # (Auto) 15.7 TH/MM3 13.6 TH/MM3 (1.8-7.7) (1.8-7.7) Lymphocytes # (Auto) 0.7 TH/MM3 0.9 TH/MM3 (1.0-4.8) (1.0-4.8) Monocytes # (Auto) 0.9 TH/MM3 0.9 TH/MM3 (0-0.9) (0-0.9) Eosinophils # (Auto) 0.0 TH/MM3 0.1 TH/MM3 (0-0.4) (0-0.4) Basophils # (Auto) 0.0 TH/MM3 0.0 TH/MM3 (0-0.2) (0-0.2) CBC Comment DIFF FINAL DIFF FINAL Differential Comment Sodium Level 138 MEQ/L 136 MEQ/L (136-145) (136-145) Potassium Level 4.3 MEQ/L 4.2 MEQ/L (3.5-5.1) (3.5-5.1) Chloride Level 96 MEQ/L 96 MEQ/L (98-107) (98-107) Carbon Dioxide Level 35.3 MEQ/L 32.3 MEQ/L (21.0-32.0) (21.0-32.0) Anion Gap 7 MEQ/L (5-15) 8 MEQ/L (5-15) Blood Urea Nitrogen 30 MG/DL (7-18) 26 MG/DL (7-18) Creatinine 0.62 MG/DL 0.57 MG/DL (0.60-1.30) (0.60-1.30) Estimat Glomerular Filtration 137 ML/MIN 151 ML/MIN Rate (>89) (>89) Random Glucose 309 MG/DL 257 MG/DL (74-106) (74-106) Calcium Level 8.5 MG/DL 8.4 MG/DL (8.5-10.1) (8.5-10.1) Phosphorus Level 2.8 MG/DL 3.3 MG/DL (2.5-4.9) (2.5-4.9) Magnesium Level 2.3 MG/DL 2.1 MG/DL (1.5-2.5) (1.5-2.5) Blood Gas Puncture Site RT BRACHIAL Blood Gas Patient Temperature 98.6 Blood Gas HCO3 30 mmol/L (22-26) Blood Gas Base Excess 5.7 mmol/L (-2-2) Blood Gas Oxygen Saturation 93 % (90-100) Arterial Blood pH 7.41 (7.380-7.420) Arterial Blood Partial 49 mmHg (38-42) Pressure CO2 Arterial Blood Partial 85 mmHg Pressure O2 (61-120) Arterial Blood Oxygen Content 16.6 Vol % (12.0-20.0) Arterial Blood 1.3 % (0-4) Carboxyhemoglobin Arterial Blood Methemoglobin 1.3 % (0-2) Blood Gas Hemoglobin 12.6 G/DL (12.0-16.0) Oxygen Delivery Device VENTILATOR Blood Gas Ventilator Setting PRVC/AC Blood Gas Inspired Oxygen 70 % Total Bilirubin 0.6 MG/DL (0.2-1.0) Aspartate Amino Transf 11 U/L (15-37) (AST/SGOT) Alanine Aminotransferase 30 U/L (12-78) (ALT/SGPT) Alkaline Phosphatase 60 U/L (45-117) Total Protein 6.0 GM/DL (6.4-8.2) Albumin 2.5 GM/DL (3.4-5.0) Vancomycin Level Trough 11.8 MCG/ML (5.0-10.0) Test 04/13/16 04/13/16 05:00 05:08 Blood Gas Puncture Site RT BRACHIAL Blood Gas Patient Temperature 98.6 Blood Gas HCO3 31 mmol/L (22-26) Blood Gas Base Excess 6.9 mmol/L (-2-2) Blood Gas Oxygen Saturation 96 % (90-100) Arterial Blood pH 7.48 (7.380-7.420) Arterial Blood Partial 41 mmHg (38-42) Pressure CO2 Arterial Blood Partial 108 mmHg Pressure O2 (61-120) Arterial Blood Oxygen Content 18.6 Vol % (12.0-20.0) Arterial Blood 1.4 % (0-4) Carboxyhemoglobin Arterial Blood Methemoglobin 1.2 % (0-2) Blood Gas Hemoglobin 13.7 G/DL (12.0-16.0) Oxygen Delivery Device VENTILATOR Blood Gas Ventilator Setting PRVC/AC Blood Gas Inspired Oxygen 65 % White Blood Count 17.6 TH/MM3 (4.0-11.0) Red Blood Count 4.76 MIL/MM3 (4.50-5.90) Hemoglobin 12.8 GM/DL (13.0-17.0) Hematocrit 39.2 % (39.0-51.0) Mean Corpuscular Volume 82.3 FL (80.0-100.0) Mean Corpuscular Hemoglobin 26.9 PG (27.0-34.0) Mean Corpuscular Hemoglobin 32.7 % Concent (32.0-36.0) Red Cell Distribution Width 14.7 % (11.6-17.2) Platelet Count 290 TH/MM3 (150-450) Mean Platelet Volume 9.5 FL (7.0-11.0) Neutrophils (%) (Auto) 88.5 % (16.0-70.0) Lymphocytes (%) (Auto) 5.9 % (9.0-44.0) Monocytes (%) (Auto) 4.6 % (0.0-8.0) Eosinophils (%) (Auto) 0.5 % (0.0-4.0) Basophils (%) (Auto) 0.5 % (0.0-2.0) Neutrophils # (Auto) 15.6 TH/MM3 (1.8-7.7) Lymphocytes # (Auto) 1.0 TH/MM3 (1.0-4.8) Monocytes # (Auto) 0.8 TH/MM3 (0-0.9) Eosinophils # (Auto) 0.1 TH/MM3 (0-0.4) Basophils # (Auto) 0.1 TH/MM3 (0-0.2) CBC Comment AUTO DIFF Differential Total Cells 100 Counted Neutrophils % (Manual) 85 % (16-70) Lymphocytes % 8 % (9-44) Monocytes % 5 % (0-8) Neutrophils # (Manual) 15.3 TH/MM3 (1.8-7.7) Metamyelocytes 2 % (0-1) Differential Comment FINAL DIFF MANUAL Platelet Estimate NORMAL (NORMAL) Platelet Morphology Comment NORMAL (NORMAL) Stomatocytes 1+ (NORMAL) Sodium Level 138 MEQ/L (136-145) Potassium Level 3.6 MEQ/L (3.5-5.1) Chloride Level 93 MEQ/L (98-107) Carbon Dioxide Level 36.3 MEQ/L (21.0-32.0) Anion Gap 9 MEQ/L (5-15) Blood Urea Nitrogen 28 MG/DL (7-18) Creatinine 0.59 MG/DL (0.60-1.30) Estimat Glomerular Filtration 145 ML/MIN Rate (>89) Random Glucose 260 MG/DL (74-106) Calcium Level 8.6 MG/DL (8.5-10.1) Phosphorus Level 3.4 MG/DL (2.5-4.9) Magnesium Level 2.2 MG/DL (1.5-2.5) Total Bilirubin 0.7 MG/DL (0.2-1.0) Aspartate Amino Transf 14 U/L (15-37) (AST/SGOT) Alanine Aminotransferase 34 U/L (12-78) (ALT/SGPT) Alkaline Phosphatase 59 U/L (45-117) Total Protein 6.5 GM/DL (6.4-8.2) Albumin 2.7 GM/DL (3.4-5.0) Result Diagram: 04/13/16 0508 04/13/16 0508 Imaging Last Impressions Chest X-Ray 04/12/16 0600 Signed Impressions: Service Date/Time: April 04:14 - CONCLUSION: Worsening appearance of the chest. Henrry Andrea MD Abdomen X-Ray 03/31/16 0000 Signed Impressions: Service Date/Time: Thursday, March 31, 2016 09:58 - CONCLUSION: Benign abdomen. Rodrigo Martinez MD Chest CT 03/28/16 0836 Signed Impressions: Service Date/Time: Monday, March 28, 2016 09:57 - CONCLUSION: Development areas of air bronchograms and consolidation more prominent in the right and left posterior basilar segments of the lower lobes. ET tube above the chanelle. Bernard Hartman MD CT Angiography 03/24/16 1121 Signed Impressions: Service Date/Time: Thursday, March 24, 2016 12:47 - CONCLUSION: 1. There is respiratory motion artifact but no PE is identified through most of the segmental level pulmonary arteries. 2. Mildly enlarged main pulmonary artery may indicate pulmonary arterial hypertension. 3. 11 mm left lower lobe noncalcified pulmonary nodule. Suggest correlation with any prior imaging studies that could confirm longer-term stability. If none are available consider short-term followup noncontrast chest CT in approximately 3 months. Ubaldo Rodas MD Procedures 03/26intubated 03/26 left IJ central line 04/02right IJ central line . Assessment and Plan Disease Oriented Problem List: (1) Acute respiratory failure with hypoxia (2) Staphylococcus aureus pneumonia (3) Pulmonary edema (4) Hypoxia (5) JACOB (obstructive sleep apnea) (6) Pulmonary nodule, left (7) Obesity hypoventilation syndrome (8) Morbid obesity with BMI of 50.0-59.9, adult (9) Diabetes mellitus type 2 in obese Symptom Scale: Pertinent Non-Medical Issues Psychosocial:Patient is , shares an apartment locally with his brother. Apparently has 2 other siblings as well as 2 adult children who live in the [place] area. Has designated his brother Farhat as healthcare surrogate. 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 Spiritual: Legal:Patient is not able to participate in decision-making due to clinical condition. Has completed designation naming his brother Farhat as [facility]. Ethical issues impacting care: Important Contacts brother Farhat Leger [phone] (HCS) Brother Gagandeep Leger [phone] . Prognosis This patient was admitted for further evaluation of obesity hypoventilation syndrome; absolutely developed acute respiratory failure requiring mechanical ventilation. Has continued to require high levels of ventilator support, though other organ functions remain preserved. Possible he can recover from this however currently remains in critical condition, prognosis guarded. . Code Status: Full Code (per attending documentation ) Plan * Legal decision maker: Patiently currently unable to participate in goals / decision-making due to clinical condition. It is unlikely that he will regain decision-making capacity. He has designated his brother Farhat as healthcare surrogate. * Goals: Recent meeting with 2 brothers and a sister indicate that Goals are aggressive, family seems to good understanding of current conditions and prognosis. 04/11/16: Farhat says he has spoken with the patient's two 20- something daughters in [place] and they want to continue aggressive care and full CODE STATUS. Farhat says he did discuss with them the poor prognosis. I encouraged him to encouraged them to come down here to see their father, and let him know that we would be happy to discuss this further with them also. He says he, the healthcare surrogate, would lean toward de-escalation of care but he wants to honor the daughter's wishes. 04/13/16 -- left for [facility] brother Farhat. * CODE STATUS: Full code. * SYMPTOMS: --Dyspnea-emergently intubated, has remained on high ventilator settings as well as prone bed-- prone bed being d/c today. Currently vent asynchrony controlled with multiple sedatives as well as paralytic. (fentanyl, Versed, Diprivan, Nimbex) --Anxiety-risk for related to prolonged intubation, hospitalization, underlying respiratory issues; currently appears comfortable on multiple sedatives (fentanyl, Versed, Diprivan) * Palliative care will continue to follow during hospital course as condition evolves, to assist patient/decision-maker with understanding of medical conditions, weighing benefits/burdens of treatment options, for clarification of goals of treatment. Additionally will assist with any symptoms of palliative concern Time Spent Total Floor Time (mins): 15 Attestation To help prompt me to consider important information that might be impacting today's encounter and assessment, information from prior notes written by myself or my colleagues may have been "brought forward" into today's note. My signature on this note, however, is an attestation that I personally performed the exam, history, and/or decision-making noted today, and, unless otherwise indicated, the interactions with patient, family, and staff as well as the review of records all occurred today. I also attest that the listed assessment and stated plan reflect my best clinical judgment today based on the combination of historical information, prior notes, and today's exam/ interactions. When time spent is documented, it refers only to time spent today by the signer, or if indicated, combined time spent today by collaborating physician/nurse practitioner. Irais Josue Apr 13, 2016 15:07
[2016-04-13] MEDS: PANTOPRAZOLE SODIUM 40 MG VIAL IV PUSH SCH (17:07)
[2016-04-13] MEDS ORDERED: PHARMACY ORDERED LAB XX ONE (19:45)
[2016-04-14] VITALS (18 sets, daily range): BP systolic 101–127; BP diastolic 60–78; PULSE 57–84; RESP 15; TEMP 97.9–99.1; O2SAT 92–97
[2016-04-14] MEDS: fentaNYL 2,500 MCG/NS 250 ML IV SCH ×3 (00:49→20:02)
[2016-04-14] MEDS: CISATRACURIUM INJ 100 MG in SODIUM CHLOR 0.9% 250 ML INJ 240 ML IV SCH ×3 (01:13→11:39)
[2016-04-14] MEDS: FUROSEMIDE 20 MG/2 ML VIAL IV PUSH SCH ×6 (02:43→21:58)
[2016-04-14] MEDS: PROPOFOL 1000 MG/100 ML IV SCH ×6 (02:43→20:02)
[2016-04-14] MEDS: MIDAZOLAM 100 MG/ML INJ 100 ML IV SCH (04:30)
[2016-04-14] MEDS: INSULIN NovoLIN REGULAR SUPPLEMENTAL SCALE SQ SCH ×3 (04:31→18:37)
[2016-04-14] MEDS: METOCLOPRAMIDE HCL 10 MG/2 ML VIAL IV PUSH SCH ×3 (04:31→21:58)
[2016-04-14] MEDS: ENOXAPARIN SODIUM 40 MG/0.4 ML SYRINGE SQ SCH ×2 (04:31→17:29)
--- NOTE | 2016-04-14 04:37 | RADRPT ---
EXAM DATE/TIME: 04/14/2016 02:50 [facility] COMPARISON: CHEST SINGLE AP, April 12, 2016, 4:14. INDICATIONS : Shortness of breath, possible pulmonary disease. MEDICAL HISTORY : Diabetes mellitus type II. SURGICAL HISTORY : None. ENCOUNTER: Subsequent ACUITY: 2 weeks PAIN SCORE: Non-responsive. LOCATION: Bilateral chest FINDINGS: Consolidation and small effusion again seen right lung base, modestly improved. Left perihilar consol idation improving and currently mild. No pneumothorax seen. Heart size stable, upper limits of normal . Endotracheal tube tip is about 3 cm above the chanelle. Nasogastric tube courses into the stomach. Ther e is a right internal jugular central venous catheter tip in the superior vena cava. CONCLUSION: Improving right base and left perihilar consolidation. Ubaldo Ortiz MD on April 14, 2016 at 4:34 Board Certified Radiologist. This report was verified electronically.
[2016-04-14 05:22] LABS: BLOOD GAS BASE EXCESS 7.3 mmol/L (-2-2); BLOOD GAS CARBOXYHEMOGLOBIN 1.2 % (0-4); BLOOD GAS HCO3 31 mmol/L (22-26); BLOOD GAS METHEMOGLOBIN 1.2 % (0-2); BLOOD GAS O2 HGB SATURATION 97 % (90-100); BLOOD GAS PCO2 46 mmHg (38-42); BLOOD GAS PO2 150 mmHg (61-120); BLOOD GAS TOTAL HGB 13.8 G/DL (12.0-16.0); CRITICAL VALUE NO; TEMP CORR TO 98.6
[2016-04-14 05:23] LABS: OXYGEN DEVICE VENTILATOR; VENT SETTINGS PRVC/AC
[2016-04-14 05:24] LABS: DRAW SITE RT RADIAL; FIO2 65 %; NUMBER OF ARTERIAL PUNCTURES 1; STAT NO; ULNAR PULSE PRESENT
[2016-04-14 05:57] LABS: AUTOMATED NEUTROPHIL # 16.5 TH/MM3 (1.8-7.7); BASOPHIL % 0.1 % (0.0-2.0); EOSINOPHIL # 0.1 TH/MM3 (0-0.4); EOSINOPHIL % 0.3 % (0.0-4.0); HEMATOCRIT 39.8 % (39.0-51.0); LYMPH % 6.7 % (9.0-44.0); LYMPHOCYTE # 1.3 TH/MM3 (1.0-4.8); MEAN CELL VOLUME 82.8 FL (80.0-100.0); MEAN CORPUSCULAR HEMOGLOBIN 27.1 PG (27.0-34.0); MEAN CORPUSCULAR HGB CONC 32.7 % (32.0-36.0); MONO % 4.9 % (0.0-8.0); PLATELET COUNT 246 TH/MM3 (150-450); RED BLOOD COUNT 4.81 MIL/MM3 (4.50-5.90); RED CELL DISTRIBUTION WIDTH 14.9 % (11.6-17.2); WHITE BLOOD COUNT 18.8 TH/MM3 (4.0-11.0)
[2016-04-14 06:08] LABS: ALT (GPT) 43 U/L (12-78); ANION GAP 8 MEQ/L (5-15); AST (GOT) 19 U/L (15-37); BICARBONATE 31.6 MEQ/L (21.0-32.0); BLOOD UREA NITROGEN 33 MG/DL (7-18); CHLORIDE 96 MEQ/L (98-107); GLOMERULAR FILTRATION RATE 126 ML/MIN (>89); MAGNESIUM 2.1 MG/DL (1.5-2.5); POTASSIUM 3.5 MEQ/L (3.5-5.1); SODIUM (NA) 136 MEQ/L (136-145)
[2016-04-14 06:10] LABS: ALKALINE PHOSPHATASE 64 U/L (45-117); TOTAL BILIRUBIN ADULT 0.7 MG/DL (0.2-1.0)
[2016-04-14 06:30] LABS: HEMO FLAGS AUTO DIFF
[2016-04-14] MEDS: CHLORHEXIDINE 0.12% (ORAL KIT) 15 ML CUP MT SCH ×2 (08:36→20:03)
[2016-04-14] MEDS: ARTIFICIAL TEARS OPTH OINT 3.5 APPLIC/3.5 GM TUBO EACH EYE SCH ×2 (08:37→20:03)
[2016-04-14] MEDS: INSULIN DETEMIR 100 UNITS/ML VIAL SQ SCH ×2 (08:37→20:02)
[2016-04-14] MEDS: SENNOSIDES SYRUP 8.8 MG/5 ML CUP PO/TUBE SCH ×2 (08:37→20:02)
[2016-04-14] MEDS: DOCUSATE SODIUM 100 MG/10 ML UDC PO SCH ×2 (08:37→20:02)
[2016-04-14] MEDS: LACTOBACILLUS ACIDOPHILUS TAB PO SCH ×3 (08:37→17:29)
[2016-04-14] MEDS: BENEPROTEIN POWDER 1 PACK G-TUBE SCH ×3 (08:37→17:29)
[2016-04-14] MEDS: methylPREDNISolone SOD SUCC 40 MG/1 ML VIAL IV PUSH SCH ×2 (08:37→20:02)
[2016-04-14] MEDS: SODIUM CHLORIDE 0.9% FLUSH 5 ML FLUSH IVF SCH (08:37)
[2016-04-14] MEDS: BETAMETHASONE/CLOTRIMAZOLE CREAM 15 GM TOPICAL SCH ×2 (08:37→20:03)
[2016-04-14 09:49] LABS: BANDS 6 % (0-6); METAMYELOCYTES 2 % (0-1); NEUTROPHIL # MANUAL DIFF 16.9 TH/MM3 (1.8-7.7); PLATELET ESTIMATE SMEAR NORMAL (NORMAL); PLATELET MORPHOLOGY NORMAL (NORMAL); POLYS (SEG NEUTROPHILS) 82 % (16-70); SCAN/DIFF FINAL DIFF MANUAL; WBC DIFF SAMPLE 100
--- NOTE | 2016-04-14 09:57 | HHI.CCPN ---
Subjective Remarks/Hospital Course Patient is a 50 years old obese male with past medical history significant for undiagnosed sleep apnea, super morbid obesity, type 2 diabetes was brought to the emergency department on 03/24/16 after feeling light headed and dizzy. On presentation here was found to be hypoxemic and ABG showed severe hypoxemia and hypercarbia. For a recent driving physical he was diagnosed with low oxygen saturations. Patient's oxygen saturation the ED was in the low 80s, which was confirmed on ABG with a oxygen saturation of 78% and PO2 of 46. CTA negative for PE. Patient was initiated on BiPAP therapy with consult to pulmonary Dr. Crane. His oxygenation improved but he continued to be hypercapnic. Today a.m. on nasal cannula his pH was 7.26 and PCO2 was increased at 99, patient was somnolent was placed back on BiPAP and repeat ABG at noon showed pH 7.26 PCO2 98 and pO2 70. This was on 16 BiPAP with FiO2 50%. Critical care was consulted. On my evaluation patient is somnolent but wakes up easily. I reduced the PEEP on BiPAP from 12-7 to facilitate better ventilation. A repeat ANG showed only minimal improvement, so decision made to intubate patient. Glidescope with #4 blade was used. Only propofol was used for induction. Initially I had a Grade 1-2 view, but I was unable to pass tube through the vocal cord to trachea in two attempts. Tube slipped out of Laryngeal opening both times. Dr Garrett intubated patient after NM paralysis with succinylcholine. Post intubation ABG showed improvement in hypercapnia and oxygenation. 03/27/16: Patient remains intubated heavily sedated with propofol and fentanyl. Remained severely hypoxemic on 100% FiO2, PEEP12, chest x-ray shows bibasilar infiltrates. Flagyl added. We'll give 1 dose of vancomycin-Adjust antibiotics according to cultures. Patient super morbid obesity may prevent Prone therapy 03/28: Remains hypoxic but ABG shows marginal improvement in oxygenation. WBC increasing 20.1 today. Start vancomycin scheduled. 03/29: Oxygenation is slightly improved. FiO2 reduced to 50% today. Chest x- ray remains unchanged. On sedation hold patient does wake up and follow commands. WBC count remains at 20 03/30 No acute events overnight. Sedated with Diprivan and Fentanyl. Had T: 100.1 at 4 am. WBC trending down 15.9 today from 20. 03/31 Patient remains sedated with Diprivan, Fentanyl and intubated. Tmax 100.1. Patient required increase O2 overnight now on ACV with PEEP: 12 and FIO2 70%. 04/01: Tmax 99.7. No bowel movement since admission. Patient has bowel sounds. Arousable on the ventilator. We'll attempt prone the patient paralyzed to increase oxygenation status. 04/02: MAXIMUM TEMPERATURE 100.9. Currently 97.7. 5 10 cc stools overnight. Placed on Roto prone yesterday. Saturations currently 94% on Flolan. Diuresed overnight. Creatinine still within normal limits. 04/03: Tmax 101. Currently 99.1. Positive BM. Did not tolerate not being unprone this AM. Saturations much improved prone. Tolerating tube feeding. Subjective 04/04: Tmax 100.8. Currently 98.8. +2 L past 24 hours. Attempt to on prone today. Positive BM. C. difficile negative. Remains paralyzed. 04/05: Remains sedated, orally intubated on neuromuscular blockade on mechanical ventilation. Remains on Rota prone bed. On insulin drip. 04/06: Remains sedated, orally intubated on neuromuscular blockade, on mechanical ventilation. Remains on Rota prone bed. Insulin drip continues. 04/07 Patient remains on Rotoprone bed sedated with Diprivan, Versed, Fentanyl in addition patient is on Nimbex. Afebrile. On Insulin drip 5u/hr. 04/08 Patient remains sedated and intubated and on Nimbex. Off insulin drip. On PRVC/AC with RR 15, TV 550, IT: 1.65, PEEP: 15 and FIO2 100%. T: 100.2 at 4 am. 04/09 Patient is sedated, intubated and remains on neuromuscular blockade. Vent setting unchanged. afebrile. 04/10 Patient remains sedated and intubated and on Nimbex. On PRVC/AC, RR 15, TV 500, PEEP: 15, FIO2 90%, IT:1.65, on Flolan drip. Remains on Rotoprone bed. 04/11 minimal improvement in oxygenation, FiO2 now at 75 - continue to improve oxygenation, worsening CXR 2/10/11 continue to improve oxygenation DC'd prone position last night Objective Vital Signs Date Time Temp Pulse Resp B/P Pulse Ox O2 Delivery O2 Flow Rate FiO2 04/14/16 08:00 97.9 57 15 101/62 92 04/14/16 08:00 55 Intake and Output 04/13/16 04/13/16 04/14/16 08:00 16:00 00:00 Intake Total 1465 ml 1843 ml 1768 ml Output Total 2050 ml 1200 ml 2600 ml Balance -585 ml 643 ml -832 ml Result Diagram: 04/14/16 0514 04/14/16 0514 Other Results Laboratory Tests Test 04/14/16 05:10 Blood Gas Puncture Site RT RADIAL Blood Gas Patient Temperature 98.6 Blood Gas HCO3 31 mmol/L (22-26) Blood Gas Base Excess 7.3 mmol/L (-2-2) Blood Gas Oxygen Saturation 97 % (90-100) Arterial Blood pH 7.45 (7.380-7.420) Arterial Blood Partial 46 mmHg (38-42) Pressure CO2 Arterial Blood Partial 150 mmHg Pressure O2 (61-120) Arterial Blood Oxygen Content 19.0 Vol % (12.0-20.0) Arterial Blood 1.2 % (0-4) Carboxyhemoglobin Arterial Blood Methemoglobin 1.2 % (0-2) Blood Gas Hemoglobin 13.8 G/DL (12.0-16.0) Oxygen Delivery Device VENTILATOR Blood Gas Ventilator Setting PRVC/AC Blood Gas Inspired Oxygen 65 % Imaging Last Impressions Chest X-Ray 04/09/16 0900 Signed Impressions: Service Date/Time: Saturday, April 09, 2016 09:12 - CONCLUSION: 1. Diffuse alveolar consolidation of the left lung and right upper lung field consistent with pneumonia and/or asymmetric pulmonary edema. Clinical correlation is recommended. 2. Endotracheal tube has its tip 1 cm above the chanelle. This could be pulled back 2 cm for more optimal position. Farhat Montes MD Abdomen X-Ray 03/31/16 0000 Signed Impressions: Service Date/Time: Thursday, March 31, 2016 09:58 - CONCLUSION: Benign abdomen. Rodrigo Martinez MD Chest CT 03/28/16 0836 Signed Impressions: Service Date/Time: Monday, March 28, 2016 09:57 - CONCLUSION: Development areas of air bronchograms and consolidation more prominent in the right and left posterior basilar segments of the lower lobes. ET tube above the chanelle. Bernard Hartman MD CT Angiography 03/24/16 1121 Signed Impressions: Service Date/Time: Thursday, March 24, 2016 12:47 - CONCLUSION: 1. There is respiratory motion artifact but no PE is identified through most of the segmental level pulmonary arteries. 2. Mildly enlarged main pulmonary artery may indicate pulmonary arterial hypertension. 3. 11 mm left lower lobe noncalcified pulmonary nodule. Suggest correlation with any prior imaging studies that could confirm longer-term stability. If none are available consider short-term followup noncontrast chest CT in approximately 3 months. Ubaldo Rodas MD Objective Remarks GENERAL: 50-year-old male, critically ill. Orally intubated on mechanical ventilation, on sedation and neuromuscular blockade SKIN: Evidence of seborrheic dermatitis of the face HEAD: Atraumatic. Normocephalic. EYES: Pupils equal round and slightly reactive about 3 millimeters bilaterally. ENT: NG tube in place. NECK: Very large neck. Trachea midline. Right IJ clean dry and intact CARDIOVASCULAR: Distant heart sounds. RRR. S1, S2. No S4. Without murmur RESPIRATORY: Orally intubated on mechanical ventilation, Breath sounds equal bilaterally. Diminished breath sounds due to body habitus. GASTROINTESTINAL: Abdomen soft, obese, nontender. Severe central obesity MUSCULOSKELETAL: Extremities with trace to 1+ nonpitting bilateral lower extremity edema. NEUROLOGICAL: Intubated and paralyzed on the ventilator. Date of Insertion: Apr 02, 2016 Line: Central Venous Catheter Side: Right Location: Internal, Jugular A/P Assessment and Plan Acute respiratory failure - ARDS - Continues to improve and oxygenation - We'll discontinue prone position - We will continue PRVC/AC with RR 15, TV 550, IT: 1.65, PEEP: 15 and FIO2 65%, decrease FIO2 as luna. - Bronchodilator therapy every 4 hours and as needed - intubated 03/26/16 - Continue Flolan at 50 ng/kg per minute for oxygenation. - Continue Solu-Medrol 40 mg IV q12 - DC Nimbex Obstructive sleep apnea/ Obesity hypoventilation syndrome - Not an issue well intubated Staph aureus pneumonia - Continue with abx per ID - (Levaquin, Flagyl, Diflucan, Vanco) - Pancultured 2/5- NGTD - ID consult appreciated Severe protein calorie malnutrition Hypoalbuminemia - Tube feeds with Glucerna 1.5@45ml/hr, - IV Protonix 40 mg IV daily - Colace, senna for bowel regimen - increased residuals - increase Reglan to 10mg Q8 Diabetes mellitus - On SSI ( high scale), increase Levemir 35u Q12 DVT GI prophylaxis -Bilateral lower extremity SCDs. IV Protonix 40 mg daily. Lovenox 40 mg sq BID LINES: -Right IJ CVL 04/02- present Critical Care: The total critical care time was 35 minutes. Time to perform other separately billable procedures was not included in the critical care time. Jermaine Martini MD Apr 14, 2016 09:57
[2016-04-14] MEDS: EPOPROSTENOL NEB SOLUTION 50 NG/KG/MIN 100 ML NEB SCH ×4 (10:40→17:29)
[2016-04-14] MEDS: LEVOFLOXACIN 750 MG PREMIX INJ 150 ML IV SCH (13:37)
[2016-04-14] MEDS: PANTOPRAZOLE SODIUM 40 MG VIAL IV PUSH SCH (17:29)
[2016-04-14] MEDS: RESP: ALBUTEROL 2.5 MG/IPRATROPIUM 0.5 MG NEB (PRN) NEB (23:26)
[2016-04-15] VITALS (19 sets, daily range): BP systolic 111–130; BP diastolic 63–84; PULSE 62–103; RESP 15; TEMP 97.2–99.5; O2SAT 89–97
[2016-04-15] MEDS: INSULIN NovoLIN REGULAR SUPPLEMENTAL SCALE SQ SCH ×5 (00:11→23:51)
[2016-04-15] MEDS: MIDAZOLAM 100 MG/ML INJ 100 ML IV SCH ×2 (02:32→20:10)
[2016-04-15] MEDS: EPOPROSTENOL NEB SOLUTION 50 NG/KG/MIN 100 ML NEB SCH ×2 (02:32)
[2016-04-15] MEDS: FUROSEMIDE 20 MG/2 ML VIAL IV PUSH SCH ×5 (03:27→20:11)
[2016-04-15] MEDS: RESP: ALBUTEROL 2.5 MG/IPRATROPIUM 0.5 MG NEB (PRN) NEB (03:37)
[2016-04-15] MEDS: PROPOFOL 1000 MG/100 ML IV SCH ×2 (04:04→06:35)
[2016-04-15 04:08] LABS: AUTOMATED NEUTROPHIL # 17.5 TH/MM3 (1.8-7.7); BASOPHIL # 0.1 TH/MM3 (0-0.2); BASOPHIL % 0.5 % (0.0-2.0); EOSINOPHIL % 0.1 % (0.0-4.0); HEMATOCRIT 39.1 % (39.0-51.0); HEMO FLAGS DIFF FINAL; LYMPH % 3.9 % (9.0-44.0); LYMPHOCYTE # 0.7 TH/MM3 (1.0-4.8); MEAN CELL VOLUME 81.8 FL (80.0-100.0); MEAN CORPUSCULAR HEMOGLOBIN 27.1 PG (27.0-34.0); MEAN CORPUSCULAR HGB CONC 33.2 % (32.0-36.0); MONO % 3.8 % (0.0-8.0); NEUT % 91.7 % (16.0-70.0); PLATELET COUNT 251 TH/MM3 (150-450); RED BLOOD COUNT 4.77 MIL/MM3 (4.50-5.90); RED CELL DISTRIBUTION WIDTH 14.8 % (11.6-17.2)
[2016-04-15 04:24] LABS: ANION GAP 9 MEQ/L (5-15); AST (GOT) 16 U/L (15-37); BLOOD UREA NITROGEN 31 MG/DL (7-18); CHLORIDE 95 MEQ/L (98-107); GLOMERULAR FILTRATION RATE 148 ML/MIN (>89); MAGNESIUM 2.2 MG/DL (1.5-2.5); POTASSIUM 3.6 MEQ/L (3.5-5.1); SODIUM (NA) 137 MEQ/L (136-145)
[2016-04-15 04:31] LABS: ALKALINE PHOSPHATASE 64 U/L (45-117); ALT (GPT) 44 U/L (12-78); TOTAL BILIRUBIN ADULT 0.8 MG/DL (0.2-1.0)
--- NOTE | 2016-04-15 04:58 | RADRPT ---
EXAM DATE/TIME: 04/15/2016 03:12 [facility] COMPARISON: CHEST SINGLE AP, April 14, 2016, 2:50. INDICATIONS : Shortness of breath, possible pulmonary disease. MEDICAL HISTORY : Diabetes mellitus type II. SURGICAL HISTORY : None. ENCOUNTER: Subsequent ACUITY: 2 weeks PAIN SCORE: Non-responsive. LOCATION: Bilateral chest FINDINGS: Mild bibasilar consolidation slightly improved, especially on the right. No large effusion seen. No p neumothorax. Heart size stable, upper limits of normal. Endotracheal tube tip is about 4 cm above the chanelle. Nasogastric tube courses into the stomach. Ther e is a right internal jugular central venous catheter are again seen, tip in the superior vena cava. CONCLUSION: Slightly improved bibasilar consolidation. Ubaldo Ortiz MD on April 15, 2016 at 4:56 Board Certified Radiologist. This report was verified electronically.
[2016-04-15 05:49] LABS: BLOOD GAS BASE EXCESS 8.1 mmol/L (-2-2); BLOOD GAS CARBOXYHEMOGLOBIN 1.3 % (0-4); BLOOD GAS HCO3 32 mmol/L (22-26); BLOOD GAS METHEMOGLOBIN 1.1 % (0-2); BLOOD GAS O2 HGB SATURATION 96 % (90-100); BLOOD GAS OXYGEN CONTENT 18.5 Vol % (12.0-20.0); BLOOD GAS PCO2 40 mmHg (38-42); BLOOD GAS PO2 122 mmHg (61-120); BLOOD GAS TOTAL HGB 13.6 G/DL (12.0-16.0); TEMP CORR TO 98.6
[2016-04-15 05:52] LABS: CRITICAL VALUE YES; OXYGEN DEVICE VENTILATOR
[2016-04-15 05:53] LABS: DRAW SITE RT BRACHIAL; FIO2 60 %
[2016-04-15 05:54] LABS: NUMBER OF ARTERIAL PUNCTURES 1; STAT NO; ULNAR PULSE PRESENT
[2016-04-15] MEDS: METOCLOPRAMIDE HCL 10 MG/2 ML VIAL IV PUSH SCH ×3 (05:59→21:27)
[2016-04-15] MEDS: ENOXAPARIN SODIUM 40 MG/0.4 ML SYRINGE SQ SCH ×2 (05:59→17:36)
[2016-04-15] MEDS: fentaNYL 2,500 MCG/NS 250 ML IV SCH ×2 (06:35→22:32)
[2016-04-15] MEDS: SENNOSIDES SYRUP 8.8 MG/5 ML CUP PO/TUBE SCH ×2 (08:11→20:11)
[2016-04-15] MEDS: INSULIN DETEMIR 100 UNITS/ML VIAL SQ SCH ×2 (08:11→20:11)
[2016-04-15] MEDS: SODIUM CHLORIDE 0.9% FLUSH 5 ML FLUSH IVF SCH (08:11)
[2016-04-15] MEDS: CHLORHEXIDINE 0.12% (ORAL KIT) 15 ML CUP MT SCH ×2 (08:11→20:13)
[2016-04-15] MEDS: DOCUSATE SODIUM 100 MG/10 ML UDC PO SCH ×2 (08:11→20:11)
[2016-04-15] MEDS: ARTIFICIAL TEARS OPTH OINT 3.5 APPLIC/3.5 GM TUBO EACH EYE SCH ×2 (08:12→20:13)
[2016-04-15] MEDS: methylPREDNISolone SOD SUCC 40 MG/1 ML VIAL IV PUSH SCH ×2 (08:12→20:11)
[2016-04-15] MEDS: BETAMETHASONE/CLOTRIMAZOLE CREAM 15 GM TOPICAL SCH ×2 (08:12→20:13)
[2016-04-15] MEDS: LACTOBACILLUS ACIDOPHILUS TAB PO SCH ×3 (08:12→17:35)
[2016-04-15] MEDS: BENEPROTEIN POWDER 1 PACK G-TUBE SCH ×3 (08:13→17:36)
--- NOTE | 2016-04-15 09:04 | HHI.CCPN ---
Subjective Remarks/Hospital Course Patient is a 50 years old obese male with past medical history significant for undiagnosed sleep apnea, super morbid obesity, type 2 diabetes was brought to the emergency department on 03/24/16 after feeling light headed and dizzy. On presentation here was found to be hypoxemic and ABG showed severe hypoxemia and hypercarbia. For a recent driving physical he was diagnosed with low oxygen saturations. Patient's oxygen saturation the ED was in the low 80s, which was confirmed on ABG with a oxygen saturation of 78% and PO2 of 46. CTA negative for PE. Patient was initiated on BiPAP therapy with consult to pulmonary Dr. Crane. His oxygenation improved but he continued to be hypercapnic. Today a.m. on nasal cannula his pH was 7.26 and PCO2 was increased at 99, patient was somnolent was placed back on BiPAP and repeat ABG at noon showed pH 7.26 PCO2 98 and pO2 70. This was on 16 BiPAP with FiO2 50%. Critical care was consulted. On my evaluation patient is somnolent but wakes up easily. I reduced the PEEP on BiPAP from 12-7 to facilitate better ventilation. A repeat ANG showed only minimal improvement, so decision made to intubate patient. Glidescope with #4 blade was used. Only propofol was used for induction. Initially I had a Grade 1-2 view, but I was unable to pass tube through the vocal cord to trachea in two attempts. Tube slipped out of Laryngeal opening both times. Dr Garrett intubated patient after NM paralysis with succinylcholine. Post intubation ABG showed improvement in hypercapnia and oxygenation. 03/27/16: Patient remains intubated heavily sedated with propofol and fentanyl. Remained severely hypoxemic on 100% FiO2, PEEP12, chest x-ray shows bibasilar infiltrates. Flagyl added. We'll give 1 dose of vancomycin-Adjust antibiotics according to cultures. Patient super morbid obesity may prevent Prone therapy 03/28: Remains hypoxic but ABG shows marginal improvement in oxygenation. WBC increasing 20.1 today. Start vancomycin scheduled. 03/29: Oxygenation is slightly improved. FiO2 reduced to 50% today. Chest x- ray remains unchanged. On sedation hold patient does wake up and follow commands. WBC count remains at 20 03/30 No acute events overnight. Sedated with Diprivan and Fentanyl. Had T: 100.1 at 4 am. WBC trending down 15.9 today from 20. 03/31 Patient remains sedated with Diprivan, Fentanyl and intubated. Tmax 100.1. Patient required increase O2 overnight now on ACV with PEEP: 12 and FIO2 70%. 04/01: Tmax 99.7. No bowel movement since admission. Patient has bowel sounds. Arousable on the ventilator. We'll attempt prone the patient paralyzed to increase oxygenation status. 04/02: MAXIMUM TEMPERATURE 100.9. Currently 97.7. 5 10 cc stools overnight. Placed on Roto prone yesterday. Saturations currently 94% on Flolan. Diuresed overnight. Creatinine still within normal limits. 04/03: Tmax 101. Currently 99.1. Positive BM. Did not tolerate not being unprone this AM. Saturations much improved prone. Tolerating tube feeding. Subjective 04/04: Tmax 100.8. Currently 98.8. +2 L past 24 hours. Attempt to on prone today. Positive BM. C. difficile negative. Remains paralyzed. 04/05: Remains sedated, orally intubated on neuromuscular blockade on mechanical ventilation. Remains on Rota prone bed. On insulin drip. 04/06: Remains sedated, orally intubated on neuromuscular blockade, on mechanical ventilation. Remains on Rota prone bed. Insulin drip continues. 04/07 Patient remains on Rotoprone bed sedated with Diprivan, Versed, Fentanyl in addition patient is on Nimbex. Afebrile. On Insulin drip 5u/hr. 04/08 Patient remains sedated and intubated and on Nimbex. Off insulin drip. On PRVC/AC with RR 15, TV 550, IT: 1.65, PEEP: 15 and FIO2 100%. T: 100.2 at 4 am. 04/09 Patient is sedated, intubated and remains on neuromuscular blockade. Vent setting unchanged. afebrile. 04/10 Patient remains sedated and intubated and on Nimbex. On PRVC/AC, RR 15, TV 500, PEEP: 15, FIO2 90%, IT:1.65, on Flolan drip. Remains on Rotoprone bed. 04/11 minimal improvement in oxygenation, FiO2 now at 75 - continue to improve oxygenation, worsening CXR 2/10/11 continue to improve oxygenation DC'd prone position last night improving oxygenation, Nimbex discontinued as well as prone position Objective Vital Signs Date Time Temp Pulse Resp B/P Pulse Ox O2 Delivery O2 Flow Rate FiO2 04/15/16 07:41 93 60 04/15/16 06:00 66 04/15/16 04:00 98.9 15 123/71 Intake and Output 04/14/16 04/14/16 04/15/16 08:00 16:00 00:00 Intake Total 1239 ml 1915 ml 707 ml Output Total 1400 ml 1600 ml 1250 ml Balance -161 ml 315 ml -543 ml Result Diagram: 04/15/16 0335 04/15/16 0335 Other Results Laboratory Tests Test 04/15/16 05:35 Blood Gas Puncture Site RT BRACHIAL Blood Gas Patient Temperature 98.6 Blood Gas HCO3 32 mmol/L (22-26) Blood Gas Base Excess 8.1 mmol/L (-2-2) Blood Gas Oxygen Saturation 96 % (90-100) Arterial Blood pH 7.51 (7.380-7.420) Arterial Blood Partial 40 mmHg (38-42) Pressure CO2 Arterial Blood Partial 122 mmHg Pressure O2 (61-120) Arterial Blood Oxygen Content 18.5 Vol % (12.0-20.0) Arterial Blood 1.3 % (0-4) Carboxyhemoglobin Arterial Blood Methemoglobin 1.1 % (0-2) Blood Gas Hemoglobin 13.6 G/DL (12.0-16.0) Oxygen Delivery Device VENTILATOR Blood Gas Ventilator Setting SEE COMMENT Blood Gas Inspired Oxygen 60 % Imaging Last Impressions Chest X-Ray 04/09/16 0900 Signed Impressions: Service Date/Time: Saturday, April 09, 2016 09:12 - CONCLUSION: 1. Diffuse alveolar consolidation of the left lung and right upper lung field consistent with pneumonia and/or asymmetric pulmonary edema. Clinical correlation is recommended. 2. Endotracheal tube has its tip 1 cm above the chanelle. This could be pulled back 2 cm for more optimal position. Farhat Montes MD Abdomen X-Ray 03/31/16 0000 Signed Impressions: Service Date/Time: Thursday, March 31, 2016 09:58 - CONCLUSION: Benign abdomen. Rodrigo Martinez MD Chest CT 03/28/16 0836 Signed Impressions: Service Date/Time: Monday, March 28, 2016 09:57 - CONCLUSION: Development areas of air bronchograms and consolidation more prominent in the right and left posterior basilar segments of the lower lobes. ET tube above the chanelle. Bernard Hartman MD CT Angiography 03/24/16 1121 Signed Impressions: Service Date/Time: Thursday, March 24, 2016 12:47 - CONCLUSION: 1. There is respiratory motion artifact but no PE is identified through most of the segmental level pulmonary arteries. 2. Mildly enlarged main pulmonary artery may indicate pulmonary arterial hypertension. 3. 11 mm left lower lobe noncalcified pulmonary nodule. Suggest correlation with any prior imaging studies that could confirm longer-term stability. If none are available consider short-term followup noncontrast chest CT in approximately 3 months. Ubaldo Rodas MD Objective Remarks GENERAL: 50-year-old male, critically ill. Orally intubated on mechanical ventilation, on sedation and neuromuscular blockade SKIN: Evidence of seborrheic dermatitis of the face HEAD: Atraumatic. Normocephalic. EYES: Pupils equal round and slightly reactive about 3 millimeters bilaterally. ENT: NG tube in place. NECK: Very large neck. Trachea midline. Right IJ clean dry and intact CARDIOVASCULAR: Distant heart sounds. RRR. S1, S2. No S4. Without murmur RESPIRATORY: Orally intubated on mechanical ventilation, Breath sounds equal bilaterally. Diminished breath sounds due to body habitus. GASTROINTESTINAL: Abdomen soft, obese, nontender. Severe central obesity MUSCULOSKELETAL: Extremities with trace to 1+ nonpitting bilateral lower extremity edema. NEUROLOGICAL: Intubated and paralyzed on the ventilator. Date of Insertion: Apr 02, 2016 Line: Central Venous Catheter Side: Right Location: Internal, Jugular A/P Assessment and Plan Acute respiratory failure - ARDS - Continues to improve and oxygenation - Prone position discontinued - Discontinued paralysis with Nimbex - We will continue PRVC/AC with RR 15, TV 550, IT: 1.65, PEEP: 15 and FIO2 50%, start weaning PEEP - Bronchodilator therapy every 4 hours and as needed - intubated 03/26/16 - Wean off Flolan - Continue Solu-Medrol 40 mg IV q12 - Attempt to wean PEEP to 10 and schedule for tracheostomy Obstructive sleep apnea/ Obesity hypoventilation syndrome - Not an issue well intubated Staph aureus pneumonia - Continue with abx per ID - (Levaquin, Flagyl, Diflucan, Vanco) - Pancultured 2/5- NGTD - ID consult appreciated Severe protein calorie malnutrition Hypoalbuminemia - Tube feeds with Glucerna 1.5@45ml/hr, - IV Protonix 40 mg IV daily - Colace, senna for bowel regimen - increased residuals - increase Reglan to 10mg Q8 Diabetes mellitus - On SSI ( high scale), increase Levemir 35u Q12 DVT GI prophylaxis -Bilateral lower extremity SCDs. IV Protonix 40 mg daily. Lovenox 40 mg sq BID LINES: - Right IJ CVL 04/02- present - Consult vascular team for PICC line placement Critical Care: The total critical care time was 35 minutes. Time to perform other separately billable procedures was not included in the critical care time. Jermaine Martini MD Apr 15, 2016 09:04
[2016-04-15] MEDS ORDERED: SODIUM CHLORIDE NEB SCH (10:00)
[2016-04-15] MEDS ORDERED: EPOPROSTENOL NEB SCH (10:00)
--- NOTE | 2016-04-15 13:10 | RADRPT ---
EXAM DATE/TIME: 04/15/2016 12:21 [facility] COMPARISON: CHEST SINGLE AP, April 15, 2016, 3:12. INDICATIONS : PICC Line Placement. MEDICAL HISTORY : Diabetes mellitus type II. SURGICAL HISTORY : None. ENCOUNTER: Initial ACUITY: 1 day PAIN SCORE: Non-responsive. LOCATION: Bilateral chest FINDINGS: A single view of the chest demonstrates the support devices are in place. There is some scattered are as of atelectasis in the lower lung delong. The heart size is stable. No definite pleural effusions. No definite pneumothorax..CONCLUSION: Scattered bibasilar areas of atelectasis. Otherwise no significant change. Rodrigo Martinez MD on April 15, 2016 at 13:08 Board Certified Radiologist. This report was verified electronically.
[2016-04-15] MEDS: LEVOFLOXACIN 750 MG PREMIX INJ 150 ML IV SCH (14:07)
[2016-04-15] MEDS: SODIUM CHLORIDE 0.9% FLUSH 5 ML FLUSH IVF PRN (14:08)
[2016-04-15] MEDS: EPOPROSTENOL NEB SOLUTION 30 NG/KG/MIN 100 ML NEB SCH ×2 (14:30)
[2016-04-15] MEDS: PANTOPRAZOLE SODIUM 40 MG VIAL IV PUSH SCH (17:36)
[2016-04-16] VITALS (19 sets, daily range): BP systolic 113–138; BP diastolic 63–84; PULSE 75–121; RESP 15–18; TEMP 98.4–99.6; O2SAT 90–96
[2016-04-16] MEDS: EPOPROSTENOL NEB SOLUTION 30 NG/KG/MIN 100 ML NEB SCH ×6 (01:04→17:06)
[2016-04-16] MEDS: FUROSEMIDE 20 MG/2 ML VIAL IV PUSH SCH ×3 (03:03→17:03)
--- NOTE | 2016-04-16 05:16 | RADRPT ---
EXAM DATE/TIME: 04/16/2016 03:58 [facility] COMPARISON: CHEST SINGLE AP, April 15, 2016, 12:21. INDICATIONS : Shortness of breath, possible pulmonary disease. MEDICAL HISTORY : Diabetes mellitus type II. SURGICAL HISTORY : None. ENCOUNTER: Subsequent ACUITY: 2 weeks PAIN SCORE: Non-responsive. LOCATION: Bilateral chest FINDINGS: The cardiac silhouette is enlarged in transverse diameter. Support lines and tubes are in satisfactor y position. There is bilateral lower lobe atelectasis versus pneumonia. A small left sided effusion i s present. There has been no significant change when compared to the prior exam. CONCLUSION: 1. Cardiomegaly. Bilateral lower lobe atelectasis versus pneumonia. There has been no significant klaudia nge when compared to the prior exam. Kyaw Rojo MD on April 16, 2016 at 5:14 Board Certified Radiologist. This report was verified electronically.
[2016-04-16] MEDS: ENOXAPARIN SODIUM 40 MG/0.4 ML SYRINGE SQ SCH ×2 (05:24→17:01)
[2016-04-16] MEDS: METOCLOPRAMIDE HCL 10 MG/2 ML VIAL IV PUSH SCH ×3 (05:24→20:12)
[2016-04-16] MEDS: INSULIN NovoLIN REGULAR SUPPLEMENTAL SCALE SQ SCH ×3 (05:28→17:02)
[2016-04-16 05:53] LABS: AUTOMATED NEUTROPHIL # 17.4 TH/MM3 (1.8-7.7); BASOPHIL # 0.1 TH/MM3 (0-0.2); BASOPHIL % 0.3 % (0.0-2.0); EOSINOPHIL % 0.2 % (0.0-4.0); HEMATOCRIT 41.6 % (39.0-51.0); LYMPH % 5.3 % (9.0-44.0); MEAN CELL VOLUME 82.1 FL (80.0-100.0); MEAN CORPUSCULAR HEMOGLOBIN 27.1 PG (27.0-34.0); MONO % 5.2 % (0.0-8.0); PLATELET COUNT 254 TH/MM3 (150-450); RED BLOOD COUNT 5.07 MIL/MM3 (4.50-5.90); RED CELL DISTRIBUTION WIDTH 14.8 % (11.6-17.2); WHITE BLOOD COUNT 19.6 TH/MM3 (4.0-11.0)
[2016-04-16 05:57] LABS: BLOOD GAS BASE EXCESS 9.8 mmol/L (-2-2); BLOOD GAS CARBOXYHEMOGLOBIN 1.3 % (0-4); BLOOD GAS HCO3 34 mmol/L (22-26); BLOOD GAS METHEMOGLOBIN 1.2 % (0-2); BLOOD GAS O2 HGB SATURATION 95 % (90-100); BLOOD GAS OXYGEN CONTENT 19.6 Vol % (12.0-20.0); BLOOD GAS PCO2 43 mmHg (38-42); BLOOD GAS PO2 103 mmHg (61-120); BLOOD GAS TOTAL HGB 14.6 G/DL (12.0-16.0); TEMP CORR TO 98.6
[2016-04-16 05:59] LABS: CRITICAL VALUE YES
[2016-04-16 05:59] LABS: HEMO FLAGS AUTO DIFF
[2016-04-16 06:00] LABS: DRAW SITE RT RADIAL; FIO2 50 %; NUMBER OF ARTERIAL PUNCTURES 3; STAT NO; ULNAR PULSE Y
[2016-04-16 06:02] LABS: ALT (GPT) 58 U/L (12-78); ANION GAP 8 MEQ/L (5-15); AST (GOT) 20 U/L (15-37); BICARBONATE 35.8 MEQ/L (21.0-32.0); BLOOD UREA NITROGEN 34 MG/DL (7-18); CHLORIDE 94 MEQ/L (98-107); GLOMERULAR FILTRATION RATE 119 ML/MIN (>89); MAGNESIUM 2.2 MG/DL (1.5-2.5); POTASSIUM 3.2 MEQ/L (3.5-5.1); SODIUM (NA) 138 MEQ/L (136-145)
[2016-04-16 06:04] LABS: ALKALINE PHOSPHATASE 77 U/L (45-117); TOTAL BILIRUBIN ADULT 0.9 MG/DL (0.2-1.0)
[2016-04-16] MEDS: POTASSIUM CHLOR 40 MEQ PREMIX 100 ML IV PRN ×2 (06:11→09:01)
[2016-04-16 08:13] LABS: PLATELET ESTIMATE SMEAR NORMAL (NORMAL); PLATELET MORPHOLOGY NORMAL (NORMAL); SCAN/DIFF AUTO DIFF CONFIRMED
[2016-04-16] MEDS: ARTIFICIAL TEARS OPTH OINT 3.5 APPLIC/3.5 GM TUBO EACH EYE SCH ×2 (08:38→20:12)
[2016-04-16] MEDS: SENNOSIDES SYRUP 8.8 MG/5 ML CUP PO/TUBE SCH ×2 (08:39→20:11)
[2016-04-16] MEDS: methylPREDNISolone SOD SUCC 40 MG/1 ML VIAL IV PUSH SCH ×2 (08:39→20:12)
[2016-04-16] MEDS: INSULIN DETEMIR 100 UNITS/ML VIAL SQ SCH ×2 (08:39→20:16)
[2016-04-16] MEDS: DOCUSATE SODIUM 100 MG/10 ML UDC PO SCH ×2 (08:39→20:12)
[2016-04-16] MEDS: LACTOBACILLUS ACIDOPHILUS TAB PO SCH ×3 (08:40→17:02)
[2016-04-16] MEDS: SODIUM CHLORIDE 0.9% FLUSH 5 ML FLUSH IVF SCH (08:41)
[2016-04-16] MEDS: CHLORHEXIDINE 0.12% (ORAL KIT) 15 ML CUP MT SCH ×2 (08:42→20:13)
[2016-04-16] MEDS: fentaNYL 2,500 MCG/NS 250 ML IV SCH ×2 (08:58→09:05)
[2016-04-16] MEDS: BETAMETHASONE/CLOTRIMAZOLE CREAM 15 GM TOPICAL SCH ×2 (09:00→20:13)
[2016-04-16] MEDS: BENEPROTEIN POWDER 1 PACK G-TUBE SCH ×3 (09:00→17:05)
--- NOTE | 2016-04-16 09:22 | HHI.CCPN ---
Subjective Remarks/Hospital Course Patient is a 50 years old obese male with past medical history significant for undiagnosed sleep apnea, super morbid obesity, type 2 diabetes was brought to the emergency department on 03/24/16 after feeling light headed and dizzy. On presentation here was found to be hypoxemic and ABG showed severe hypoxemia and hypercarbia. For a recent driving physical he was diagnosed with low oxygen saturations. Patient's oxygen saturation the ED was in the low 80s, which was confirmed on ABG with a oxygen saturation of 78% and PO2 of 46. CTA negative for PE. Patient was initiated on BiPAP therapy with consult to pulmonary Dr. Crane. His oxygenation improved but he continued to be hypercapnic. Today a.m. on nasal cannula his pH was 7.26 and PCO2 was increased at 99, patient was somnolent was placed back on BiPAP and repeat ABG at noon showed pH 7.26 PCO2 98 and pO2 70. This was on 16 BiPAP with FiO2 50%. Critical care was consulted. On my evaluation patient is somnolent but wakes up easily. I reduced the PEEP on BiPAP from 12-7 to facilitate better ventilation. A repeat ANG showed only minimal improvement, so decision made to intubate patient. Glidescope with #4 blade was used. Only propofol was used for induction. Initially I had a Grade 1-2 view, but I was unable to pass tube through the vocal cord to trachea in two attempts. Tube slipped out of Laryngeal opening both times. Dr Garrett intubated patient after NM paralysis with succinylcholine. Post intubation ABG showed improvement in hypercapnia and oxygenation. 03/27/16: Patient remains intubated heavily sedated with propofol and fentanyl. Remained severely hypoxemic on 100% FiO2, PEEP12, chest x-ray shows bibasilar infiltrates. Flagyl added. We'll give 1 dose of vancomycin-Adjust antibiotics according to cultures. Patient super morbid obesity may prevent Prone therapy 03/28: Remains hypoxic but ABG shows marginal improvement in oxygenation. WBC increasing 20.1 today. Start vancomycin scheduled. 03/29: Oxygenation is slightly improved. FiO2 reduced to 50% today. Chest x- ray remains unchanged. On sedation hold patient does wake up and follow commands. WBC count remains at 20 03/30 No acute events overnight. Sedated with Diprivan and Fentanyl. Had T: 100.1 at 4 am. WBC trending down 15.9 today from 20. 03/31 Patient remains sedated with Diprivan, Fentanyl and intubated. Tmax 100.1. Patient required increase O2 overnight now on ACV with PEEP: 12 and FIO2 70%. 04/01: Tmax 99.7. No bowel movement since admission. Patient has bowel sounds. Arousable on the ventilator. We'll attempt prone the patient paralyzed to increase oxygenation status. 04/02: MAXIMUM TEMPERATURE 100.9. Currently 97.7. 5 10 cc stools overnight. Placed on Roto prone yesterday. Saturations currently 94% on Flolan. Diuresed overnight. Creatinine still within normal limits. 04/03: Tmax 101. Currently 99.1. Positive BM. Did not tolerate not being unprone this AM. Saturations much improved prone. Tolerating tube feeding. Subjective 04/04: Tmax 100.8. Currently 98.8. +2 L past 24 hours. Attempt to on prone today. Positive BM. C. difficile negative. Remains paralyzed. 04/05: Remains sedated, orally intubated on neuromuscular blockade on mechanical ventilation. Remains on Rota prone bed. On insulin drip. 04/06: Remains sedated, orally intubated on neuromuscular blockade, on mechanical ventilation. Remains on Rota prone bed. Insulin drip continues. 04/07 Patient remains on Rotoprone bed sedated with Diprivan, Versed, Fentanyl in addition patient is on Nimbex. Afebrile. On Insulin drip 5u/hr. 04/08 Patient remains sedated and intubated and on Nimbex. Off insulin drip. On PRVC/AC with RR 15, TV 550, IT: 1.65, PEEP: 15 and FIO2 100%. T: 100.2 at 4 am. 04/09 Patient is sedated, intubated and remains on neuromuscular blockade. Vent setting unchanged. afebrile. 04/10 Patient remains sedated and intubated and on Nimbex. On PRVC/AC, RR 15, TV 500, PEEP: 15, FIO2 90%, IT:1.65, on Flolan drip. Remains on Rotoprone bed. 04/11 minimal improvement in oxygenation, FiO2 now at 75 - continue to improve oxygenation, worsening CXR 2/10/11 continue to improve oxygenation DC'd prone position last night improving oxygenation, Nimbex discontinued as well as prone position 04/16 Patient is sedated with Versed and Fentanyl and intubated. Off rotoprone bed. On PRVC/AC RR 15, TV 550, IT 1.65, PEEP:15, FIO2 50%. Objective Vital Signs Date Time Temp Pulse Resp B/P Pulse Ox O2 Delivery O2 Flow Rate FiO2 04/16/16 08:13 90 50 04/16/16 06:00 97 04/16/16 04:00 98.5 15 125/75 Intake and Output 04/15/16 04/15/16 04/16/16 08:00 16:00 00:00 Intake Total 878 ml 925 ml 759 ml Output Total 2000 ml 1275 ml 1625 ml Balance -1122 ml -350 ml -866 ml Result Diagram: 04/16/16 0515 04/16/16 0515 Other Results Last Impressions Chest X-Ray 04/16/16 0600 Signed Impressions: Service Date/Time: Saturday, April 16, 2016 03:58 - CONCLUSION: 1. Cardiomegaly. Bilateral lower lobe atelectasis versus pneumonia. There has been no significant change when compared to the prior exam. Kyaw Rojo MD Abdomen X-Ray 03/31/16 0000 Signed Impressions: Service Date/Time: Thursday, March 31, 2016 09:58 - CONCLUSION: Benign abdomen. Rodrigo Martinez MD Chest CT 03/28/16 0836 Signed Impressions: Service Date/Time: Monday, March 28, 2016 09:57 - CONCLUSION: Development areas of air bronchograms and consolidation more prominent in the right and left posterior basilar segments of the lower lobes. ET tube above the chanelle. Bernard Hartman MD CT Angiography 03/24/16 1121 Signed Impressions: Service Date/Time: Thursday, March 24, 2016 12:47 - CONCLUSION: 1. There is respiratory motion artifact but no PE is identified through most of the segmental level pulmonary arteries. 2. Mildly enlarged main pulmonary artery may indicate pulmonary arterial hypertension. 3. 11 mm left lower lobe noncalcified pulmonary nodule. Suggest correlation with any prior imaging studies that could confirm longer-term stability. If none are available consider short-term followup noncontrast chest CT in approximately 3 months. Ubaldo Rodas MD Imaging Last Impressions Chest X-Ray 04/16/16 0600 Signed Impressions: Service Date/Time: Saturday, April 16, 2016 03:58 - CONCLUSION: 1. Cardiomegaly. Bilateral lower lobe atelectasis versus pneumonia. There has been no significant change when compared to the prior exam. Kyaw Rojo MD Abdomen X-Ray 03/31/16 0000 Signed Impressions: Service Date/Time: Thursday, March 31, 2016 09:58 - CONCLUSION: Benign abdomen. Rodrigo Martinez MD Chest CT 03/28/16 0836 Signed Impressions: Service Date/Time: Monday, March 28, 2016 09:57 - CONCLUSION: Development areas of air bronchograms and consolidation more prominent in the right and left posterior basilar segments of the lower lobes. ET tube above the chanelle. Bernard Hartman MD CT Angiography 03/24/16 1121 Signed Impressions: Service Date/Time: Thursday, March 24, 2016 12:47 - CONCLUSION: 1. There is respiratory motion artifact but no PE is identified through most of the segmental level pulmonary arteries. 2. Mildly enlarged main pulmonary artery may indicate pulmonary arterial hypertension. 3. 11 mm left lower lobe noncalcified pulmonary nodule. Suggest correlation with any prior imaging studies that could confirm longer-term stability. If none are available consider short-term followup noncontrast chest CT in approximately 3 months. Ubaldo Rodas MD Objective Remarks GENERAL: 50-year-old male, critically ill. Orally intubated on mechanical ventilation, on sedation and neuromuscular blockade SKIN: Evidence of seborrheic dermatitis of the face HEAD: Atraumatic. Normocephalic. EYES: Pupils equal round and slightly reactive about 3 millimeters bilaterally. ENT: NG tube in place. NECK: Very large neck. Trachea midline. Right IJ clean dry and intact CARDIOVASCULAR: Distant heart sounds. RRR. S1, S2. No S4. Without murmur RESPIRATORY: Orally intubated on mechanical ventilation, Breath sounds equal bilaterally. Diminished breath sounds due to body habitus. GASTROINTESTINAL: Abdomen soft, obese, nontender. Severe central obesity MUSCULOSKELETAL: Extremities with trace to 1+ nonpitting bilateral lower extremity edema. NEUROLOGICAL: Intubated and paralyzed on the ventilator. Date of Insertion: Apr 02, 2016 Line: Central Venous Catheter Side: Right Location: Internal, Jugular A/P Assessment and Plan 1)Acute respiratory failure 2)ARDS 3)Obstructive sleep apnea/ Obesity hypoventilation syndrome 4)Staph aureus pneumonia 5)Severe protein calorie malnutrition 6)Diabetes mellitus 7)Leukocytosis Plan: Neuro: On Fentanyl and Versed infusion for sedation. Daily sedation vacation when appropriate. Pulm: On PRVC/AC RR 15, TV 550, IT:1.65, PEEP:15, FIO2 50%. Decrease PEEP as luna Continue with vent support keep sat >92% Bronchodilators, ICU vent bundle. Will need trach once PEEP: is down to 5 Continue with Flolan 30ng/kg/min, Solumederol 40mg Q12 CV:Monitor HR and BP keep MAP>65mmHg : Monitor renal function, I/O's, electrolytes replacement per protocol. Will need K replacement today. Decrease Lasix 20mg Q8 GI: On Glucerna 1.5@45ml/hr, Protonix 40mg daily On Reglan 10mg Q8,Senna, Colace. ID: Continue with abx per ID ( Levaquin) Monitor for signs of infections ( Fever , WBC) Heme: Monitor CBC Endo: SSI for glycemic control ( high scale), Levemir insulin 45u Q12 DVT, GI prophylaxis -Bilateral lower extremity SCDs. IV Protonix 40 mg daily. Lovenox 40 mg sq BID LINES: - Right IJ CVL 04/02- present - Consult vascular team for PICC line placement Critical Care: The total critical care time was 30 minutes. Time to perform other separately billable procedures was not included in the critical care time. Rob Malloy MD Apr 16, 2016 09:22
--- NOTE | 2016-04-16 09:51 | HHI.IDPN ---
Subjective Subjective Remarks Notes reviewed D/W RN Temps ok. Rotaprone bed D/C last Thursday 04/13 Not much secretions On PRVC, FiO2 at 50% Off nimbex On flolan, fentanyl, versed CXR weekend better Tolerating TF BP good not on pressors Good UO Antibiotics Levaquin Lines TLC - 04/02 Past Medical History Reviewed Allergies: Coded Allergies: Penicillin (Verified Allergy, Severe, Swelling, 03/24/16) Tetanus Toxoid (Verified Allergy, Unknown, Swelling, 03/24/16) Objective . Vital Signs Date Time Temp Pulse Resp B/P Pulse Ox O2 Delivery O2 Flow Rate FiO2 04/16/16 08:13 90 50 04/16/16 08:00 106 04/16/16 08:00 99.4 106 18 113/81 90 04/16/16 06:00 97 04/16/16 04:21 92 50 04/16/16 04:00 95 04/16/16 04:00 50 04/16/16 04:00 98.5 95 15 125/75 91 04/16/16 02:00 100 04/16/16 00:34 93 50 04/16/16 00:00 96 04/16/16 00:00 98.4 96 15 138/79 93 04/16/16 00:00 50 04/15/16 22:00 90 04/15/16 21:34 94 50 04/15/16 20:00 50 04/15/16 20:00 99.5 89 15 128/84 94 04/15/16 20:00 89 04/15/16 19:25 94 50 04/15/16 18:00 86 04/15/16 16:00 93 04/15/16 16:00 50 04/15/16 16:00 98.2 93 15 125/74 93 04/15/16 15:19 95 50 04/15/16 14:00 103 04/15/16 12:00 50 04/15/16 12:00 98.3 87 15 130/77 93 04/15/16 12:00 87 04/15/16 11:15 97 50 04/15/16 10:00 67 04/15/16 04/15/16 04/16/16 15:00 23:00 07:00 Intake Total 925 ml 759 ml 598 ml Output Total 1275 ml 1625 ml 1250 ml Balance -350 ml -866 ml -652 ml IV Total 374 ml 358 ml 226 ml Tube Feeding 311 ml 341 ml 332 ml Other 240 ml 60 ml 40 ml Output Urine Total 1275 ml 1625 ml 1250 ml Stool Total 0 ml # Bowel Movements 0 . Laboratory Tests Test 04/15/16 04/16/16 03:35 05:15 White Blood Count 19.0 TH/MM3 19.6 TH/MM3 Red Blood Count 4.77 MIL/MM3 5.07 MIL/MM3 Hemoglobin 13.0 GM/DL 13.7 GM/DL Hematocrit 39.1 % 41.6 % Mean Corpuscular Volume 81.8 FL 82.1 FL Mean Corpuscular Hemoglobin 27.1 PG 27.1 PG Mean Corpuscular Hemoglobin 33.2 % 33.0 % Concent Red Cell Distribution Width 14.8 % 14.8 % Platelet Count 251 TH/MM3 254 TH/MM3 Mean Platelet Volume 9.5 FL 9.3 FL Neutrophils (%) (Auto) 91.7 % 89.0 % Lymphocytes (%) (Auto) 3.9 % 5.3 % Monocytes (%) (Auto) 3.8 % 5.2 % Eosinophils (%) (Auto) 0.1 % 0.2 % Basophils (%) (Auto) 0.5 % 0.3 % Neutrophils # (Auto) 17.5 TH/MM3 17.4 TH/MM3 Lymphocytes # (Auto) 0.7 TH/MM3 1.0 TH/MM3 Monocytes # (Auto) 0.7 TH/MM3 1.0 TH/MM3 Eosinophils # (Auto) 0.0 TH/MM3 0.0 TH/MM3 Basophils # (Auto) 0.1 TH/MM3 0.1 TH/MM3 CBC Comment DIFF FINAL AUTO DIFF Differential Comment AUTO DIFF CONFIRMED Platelet Estimate NORMAL Platelet Morphology Comment NORMAL Red Cell Morphology Comment NORMAL Laboratory Tests Test 04/15/16 04/16/16 03:35 05:15 Sodium Level 137 MEQ/L 138 MEQ/L Potassium Level 3.6 MEQ/L 3.2 MEQ/L Chloride Level 95 MEQ/L 94 MEQ/L Carbon Dioxide Level 33.0 MEQ/L 35.8 MEQ/L Anion Gap 9 MEQ/L 8 MEQ/L Blood Urea Nitrogen 31 MG/DL 34 MG/DL Creatinine 0.58 MG/DL 0.70 MG/DL Estimat Glomerular Filtration 148 ML/MIN 119 ML/MIN Rate Random Glucose 250 MG/DL 263 MG/DL Calcium Level 8.7 MG/DL 9.1 MG/DL Phosphorus Level 3.1 MG/DL 2.7 MG/DL Magnesium Level 2.2 MG/DL 2.2 MG/DL Total Bilirubin 0.8 MG/DL 0.9 MG/DL Aspartate Amino Transf 16 U/L 20 U/L (AST/SGOT) Alanine Aminotransferase 44 U/L 58 U/L (ALT/SGPT) Alkaline Phosphatase 64 U/L 77 U/L Total Protein 6.5 GM/DL 7.0 GM/DL Albumin 2.7 GM/DL 3.0 GM/DL Imaging Chest X-Ray 04/16/16 0600 Signed Impressions: Service Date/Time: Saturday, April 16, 2016 03:58 - CONCLUSION: 1. Cardiomegaly. Bilateral lower lobe atelectasis versus pneumonia. There has been no significant change when compared to the prior exam. Kayw Rojo MD Abdomen X-Ray 03/31/16 0000 Signed Impressions: Service Date/Time: Thursday, March 31, 2016 09:58 - CONCLUSION: Benign abdomen. Rodrigo Martinez MD Chest CT 03/28/16 0836 Signed Impressions: Service Date/Time: Monday, March 28, 2016 09:57 - CONCLUSION: Development areas of air bronchograms and consolidation more prominent in the right and left posterior basilar segments of the lower lobes. ET tube above the chanelle. Bernard Hartman MD CT Angiography 03/24/16 1121 Signed Impressions: Service Date/Time: Thursday, March 24, 2016 12:47 - CONCLUSION: 1. There is respiratory motion artifact but no PE is identified through most of the segmental level pulmonary arteries. 2. Mildly enlarged main pulmonary artery may indicate pulmonary arterial hypertension. 3. 11 mm left lower lobe noncalcified pulmonary nodule. Suggest correlation with any prior imaging studies that could confirm longer-term stability. If none are available consider short-term followup noncontrast chest CT in approximately 3 months. Ubaldo Rodas MD Chest X-Ray 04/12/16 0600 Signed Impressions: Service Date/Time: April 04:14 - CONCLUSION: Worsening appearance of the chest. Henrry Andrea MD Chest X-Ray 04/11/16 0000 Signed Impressions: Service Date/Time: Monday, April 11, 2016 04:09 - CONCLUSION: No significant change has occurred. Henrry Andrea MD Chest X-Ray 04/09/16 09 Signed Impressions: Service Date/Time: Saturday, April 09, 2016 09:12 - CONCLUSION: 1. Diffuse alveolar consolidation of the left lung and right upper lung field consistent with pneumonia and/or asymmetric pulmonary edema. Clinical correlation is recommended. 2. Endotracheal tube has its tip 1 cm above the chanelle. This could be pulled back 2 cm for more optimal position. Farhat Montes MD Chest X-Ray 04/05/16 06 Signed Impressions: Service Date/Time: April 03:25 - CONCLUSION: 1. Improved basilar consolidation. Residual versus developing right midlung consolidation. 2. Small bilateral pleural effusions are suspected. 3. No change cardiomegaly or lines/tubes. Ubaldo Ortiz MD Chest X-Ray 04/04/16 06 Signed Impressions: Service Date/Time: Monday, April 04, 2016 04:44 - CONCLUSION: Worsening bilateral airspace opacities, especially left perihilar. Ubaldo Ortiz MD Chest X-Ray 04/04/16 06 Signed Impressions: Service Date/Time: Monday, April 04, 2016 04:44 - CONCLUSION: Worsening bilateral airspace opacities, especially left perihilar. Ubaldo Ortiz MD Chest X-Ray 04/03/16 06 Signed Impressions: Service Date/Time: Sunday, April 03, 2016 00:16 - CONCLUSION: Potential developing pneumonia in the right upper lobe. Bibasilar atelectasis modestly worse in the interim. Ubaldo Ortiz MD Chest X-Ray 04/03/16 06 Signed Impressions: Service Date/Time: Sunday, April 03, 2016 00:16 - CONCLUSION: Potential developing pneumonia in the right upper lobe. Bibasilar atelectasis modestly worse in the interim. Ubaldo Ortiz MD Chest X-Ray 04/02/16 0925 Signed Impressions: Service Date/Time: Saturday, April 02, 2016 09:22 - CONCLUSION: Place a right jugular catheter terminates superior vena cava with no pneumothorax. Bernard Hartman MD Physical Exam GENERAL: Morbidly obese, sedated, on the vent, not in distress SKIN: Cool skin, no cyanosis. Flushed skin in face and trunk HEENT: Has eufemia conjunctival injection, ET in place CHEST: Coarse BS bilaterally, decreased at bases CARDIAC: regular, no murmur ABDOMEN: soft, obese, (+) BS : Becker in place, urine looks clear MUSCULOSKELETAL: Extremities without clubbing, cyanosis. Has improving pedal edema and edema hands NEUROLOGICAL: Sedated on the vent. PSYCH: Unable to assess LINE: No evidence of infection Assessment & Plan Remarks IMPRESSION Leukocytosis, persistent - has been on adequate Abx for pathogens isolated Pneumonia, C/S MSSA - CXR better, but has decreasing FiO2 JACOB Respiratory failure, improving O2 requirement - has extensive infiltrates Morbid obesity Allergy to PCN, swelling Fevers, intermittent, better RECOMMENDATION Stop Levaquin Follow CBC Monitor progress Monitor off Abx Weaning per [facility] D/W Elisha Archer MD Apr 16, 2016 09:51
--- NOTE | 2016-04-16 11:54 | HHI.HCPN ---
Reason for visit a. To assist with evaluation and management of symptoms including: Dyspnea, anxiety b. To assist medical decision maker(s) with: better understanding of current medical conditions; weighing benefits/burdens of medical treatment options; making medical treatment decisions. Subjective/Interval History Has been removed off Rotoprone bed. Slight improvement in resp status over the weekend. Fio2 down to 50%. Peep still @ 15. Nsg reports pt remained obtunded over the weekend not arousing/following commands. Fentanyl @ 200mcgs/hr , versed at 5mg/hr. CXR today: Cardiomegaly. Bilateral lower lobe atelectasis versus pneumonia. There has been no significant change when compared to the prior exam. Sputum 2/5 + staph. WBC still elevated 19. Patient seen in room no visitors present. Eyes open, appears alert. He does appear to track examiner from left to right. Appears to try to very weakly nods head yes/no to some questions. Does not follow commands to move hands or feet. Does not appear in any apparent distress. Following exam call to brother Farhat, set up to meet with him and the patient' s 2 daughters shortly. Met with Farhat, 2 daughters at length approx 35 min. Much discussion and review with 2 daughters like a new palliative care consultation, including the following: * Palliative care role, team members, reason for consult * Additional medical/social/spiritual history * Patient cognitive and functional status in the months to weeks prior to this admission * Patient and/or family understanding of current medical conditions prognosis treatment options --overall prognosis still very guarded patient has made very small, subtle improvement still possible he can come through this. On the other hand patient does remain very high risk for complications/setbacks. * Overall condition, prognosis * CODE STATUS[]-encouraged him to continue to discuss/consider * Palliative care contact information provided Family seems to have overall good understanding. They remain cautiously optimistic. Goals remain aggressive. Open to ongoing updates and revisiting goals of care as clinical condition evolves. . Advance Directives Living Will: Completed, but not made available Health Care Surrogate: Copy in medical record Durable Power of Director Market Intelligence: Completed, but not made available Advance Directive Specifics Date completed: 2016 Health Care Surrogate(s): Names brother Farhat Leger as HCS Objective Vital Signs Date Time Temp Pulse Resp B/P Pulse Ox O2 Delivery O2 Flow Rate FiO2 04/16/16 10:00 114 04/16/16 08:13 90 50 04/16/16 08:00 106 04/16/16 08:00 50 04/16/16 08:00 99.4 106 18 113/81 90 04/16/16 06:00 97 04/16/16 04:21 92 50 04/16/16 04:00 95 04/16/16 04:00 50 04/16/16 04:00 98.5 95 15 125/75 91 04/16/16 02:00 100 04/16/16 00:34 93 50 04/16/16 00:00 96 04/16/16 00:00 98.4 96 15 138/79 93 04/16/16 00:00 50 04/15/16 22:00 90 04/15/16 21:34 94 50 04/15/16 20:00 50 04/15/16 20:00 99.5 89 15 128/84 94 04/15/16 20:00 89 04/15/16 19:25 94 50 04/15/16 18:00 86 04/15/16 16:00 93 04/15/16 16:00 50 04/15/16 16:00 98.2 93 15 125/74 93 04/15/16 15:19 95 50 04/15/16 14:00 103 04/15/16 12:00 50 04/15/16 12:00 98.3 87 15 130/77 93 04/15/16 12:00 87 Intake & Output 04/16/16 04/16/16 07:00 19:00 Intake Total 1357 ml Output Total 2250 ml Balance -893 ml IV Total 584 ml Tube Feeding 673 ml Other 100 ml Output Urine Total 2250 ml Stool Total 0 ml # Bowel Movements 0 Physical Exam CONSTITUTIONAL/GENERAL: This is a morbidly obese, critically ill-appearing patient seen on specialty bed in ICU TUBES/LINES/DRAINS: ET tube, OG tube, central line, Becker catheter, rectal drain SKIN: No jaundice, rashes, or lesions.no wounds seen posteriorly. + generalized edema CARDIOVASCULAR: Regular rate and rhythm without murmurs.distant heart sounds. No JVD. Peripheral pulses symmetric. RESPIRATORY/CHEST: Symmetric, unlabored respirations via ET tube to mechanical vent. Decreased air movement throughout, scattered rhonchi. GASTROINTESTINAL: Abdomen soft, obese. Unable to determine to tenderness. TF infusing via OG tube. +liq stool via rectal drain MUSCULOSKELETAL: Extremities without clubbing, cyanosis. Significant generalized edema NEUROLOGICAL: somewhat more responsive to exam-- tracks examiner from left to right. Nods very weakly to yes/no questions. Does not move extremities to commands or pain. PSYCHIATRIC: No obvious anxiety/depression--limited exam due to clinical condition . Diagnostic Tests Laboratory Laboratory Tests Test 04/14/16 04/14/16 04/15/16 04/15/16 05:10 05:14 03:35 05:35 Blood Gas Puncture Site RT RADIAL RT BRACHIAL Blood Gas Patient Temperature 98.6 98.6 Blood Gas HCO3 31 mmol/L 32 mmol/L (22-26) (22-26) Blood Gas Base Excess 7.3 mmol/L 8.1 mmol/L (-2-2) (-2-2) Blood Gas Oxygen Saturation 97 % (90-100) 96 % (90-100) Arterial Blood pH 7.45 7.51 (7.380-7.420) (7.380-7.420) Arterial Blood Partial 46 mmHg (38-42) 40 mmHg (38-42) Pressure CO2 Arterial Blood Partial 150 mmHg 122 mmHg Pressure O2 (61-120) (61-120) Arterial Blood Oxygen Content 19.0 Vol % 18.5 Vol % (12.0-20.0) (12.0-20.0) Arterial Blood 1.2 % (0-4) 1.3 % (0-4) Carboxyhemoglobin Arterial Blood Methemoglobin 1.2 % (0-2) 1.1 % (0-2) Blood Gas Hemoglobin 13.8 G/DL 13.6 G/DL (12.0-16.0) (12.0-16.0) Oxygen Delivery Device VENTILATOR VENTILATOR Blood Gas Ventilator Setting PRVC/AC SEE COMMENT Blood Gas Inspired Oxygen 65 % 60 % White Blood Count 18.8 TH/MM3 19.0 TH/MM3 (4.0-11.0) (4.0-11.0) Red Blood Count 4.81 MIL/MM3 4.77 MIL/MM3 (4.50-5.90) (4.50-5.90) Hemoglobin 13.0 GM/DL 13.0 GM/DL (13.0-17.0) (13.0-17.0) Hematocrit 39.8 % 39.1 % (39.0-51.0) (39.0-51.0) Mean Corpuscular Volume 82.8 FL 81.8 FL (80.0-100.0) (80.0-100.0) Mean Corpuscular Hemoglobin 27.1 PG 27.1 PG (27.0-34.0) (27.0-34.0) Mean Corpuscular Hemoglobin 32.7 % 33.2 % Concent (32.0-36.0) (32.0-36.0) Red Cell Distribution Width 14.9 % 14.8 % (11.6-17.2) (11.6-17.2) Platelet Count 246 TH/MM3 251 TH/MM3 (150-450) (150-450) Mean Platelet Volume 9.4 FL 9.5 FL (7.0-11.0) (7.0-11.0) Neutrophils (%) (Auto) 88.0 % 91.7 % (16.0-70.0) (16.0-70.0) Lymphocytes (%) (Auto) 6.7 % 3.9 % (9.0-44.0) (9.0-44.0) Monocytes (%) (Auto) 4.9 % (0.0-8.0) 3.8 % (0.0-8.0) Eosinophils (%) (Auto) 0.3 % (0.0-4.0) 0.1 % (0.0-4.0) Basophils (%) (Auto) 0.1 % (0.0-2.0) 0.5 % (0.0-2.0) Neutrophils # (Auto) 16.5 TH/MM3 17.5 TH/MM3 (1.8-7.7) (1.8-7.7) Lymphocytes # (Auto) 1.3 TH/MM3 0.7 TH/MM3 (1.0-4.8) (1.0-4.8) Monocytes # (Auto) 0.9 TH/MM3 0.7 TH/MM3 (0-0.9) (0-0.9) Eosinophils # (Auto) 0.1 TH/MM3 0.0 TH/MM3 (0-0.4) (0-0.4) Basophils # (Auto) 0.0 TH/MM3 0.1 TH/MM3 (0-0.2) (0-0.2) CBC Comment AUTO DIFF DIFF FINAL Differential Total Cells 100 Counted Neutrophils % (Manual) 82 % (16-70) Band Neutrophils % 6 % (0-6) Lymphocytes % 7 % (9-44) Monocytes % 3 % (0-8) Neutrophils # (Manual) 16.9 TH/MM3 (1.8-7.7) Metamyelocytes 2 % (0-1) Differential Comment FINAL DIFF MANUAL Platelet Estimate NORMAL (NORMAL) Platelet Morphology Comment NORMAL (NORMAL) Red Cell Morphology Comment NORMAL (NORMAL) Sodium Level 136 MEQ/L 137 MEQ/L (136-145) (136-145) Potassium Level 3.5 MEQ/L 3.6 MEQ/L (3.5-5.1) (3.5-5.1) Chloride Level 96 MEQ/L 95 MEQ/L (98-107) (98-107) Carbon Dioxide Level 31.6 MEQ/L 33.0 MEQ/L (21.0-32.0) (21.0-32.0) Anion Gap 8 MEQ/L (5-15) 9 MEQ/L (5-15) Blood Urea Nitrogen 33 MG/DL (7-18) 31 MG/DL (7-18) Creatinine 0.67 MG/DL 0.58 MG/DL (0.60-1.30) (0.60-1.30) Estimat Glomerular Filtration 126 ML/MIN 148 ML/MIN Rate (>89) (>89) Random Glucose 253 MG/DL 250 MG/DL (74-106) (74-106) Calcium Level 8.6 MG/DL 8.7 MG/DL (8.5-10.1) (8.5-10.1) Phosphorus Level 2.8 MG/DL 3.1 MG/DL (2.5-4.9) (2.5-4.9) Magnesium Level 2.1 MG/DL 2.2 MG/DL (1.5-2.5) (1.5-2.5) Total Bilirubin 0.7 MG/DL 0.8 MG/DL (0.2-1.0) (0.2-1.0) Aspartate Amino Transf 19 U/L (15-37) 16 U/L (15-37) (AST/SGOT) Alanine Aminotransferase 43 U/L (12-78) 44 U/L (12-78) (ALT/SGPT) Alkaline Phosphatase 64 U/L (45-117) 64 U/L (45-117) Total Protein 6.6 GM/DL 6.5 GM/DL (6.4-8.2) (6.4-8.2) Albumin 2.8 GM/DL 2.7 GM/DL (3.4-5.0) (3.4-5.0) Test 04/16/16 04/16/16 05:15 05:52 White Blood Count 19.6 TH/MM3 (4.0-11.0) Red Blood Count 5.07 MIL/MM3 (4.50-5.90) Hemoglobin 13.7 GM/DL (13.0-17.0) Hematocrit 41.6 % (39.0-51.0) Mean Corpuscular Volume 82.1 FL (80.0-100.0) Mean Corpuscular Hemoglobin 27.1 PG (27.0-34.0) Mean Corpuscular Hemoglobin 33.0 % Concent (32.0-36.0) Red Cell Distribution Width 14.8 % (11.6-17.2) Platelet Count 254 TH/MM3 (150-450) Mean Platelet Volume 9.3 FL (7.0-11.0) Neutrophils (%) (Auto) 89.0 % (16.0-70.0) Lymphocytes (%) (Auto) 5.3 % (9.0-44.0) Monocytes (%) (Auto) 5.2 % (0.0-8.0) Eosinophils (%) (Auto) 0.2 % (0.0-4.0) Basophils (%) (Auto) 0.3 % (0.0-2.0) Neutrophils # (Auto) 17.4 TH/MM3 (1.8-7.7) Lymphocytes # (Auto) 1.0 TH/MM3 (1.0-4.8) Monocytes # (Auto) 1.0 TH/MM3 (0-0.9) Eosinophils # (Auto) 0.0 TH/MM3 (0-0.4) Basophils # (Auto) 0.1 TH/MM3 (0-0.2) CBC Comment AUTO DIFF Differential Comment AUTO DIFF CONFIRMED Platelet Estimate NORMAL (NORMAL) Platelet Morphology Comment NORMAL (NORMAL) Red Cell Morphology Comment NORMAL (NORMAL) Sodium Level 138 MEQ/L (136-145) Potassium Level 3.2 MEQ/L (3.5-5.1) Chloride Level 94 MEQ/L (98-107) Carbon Dioxide Level 35.8 MEQ/L (21.0-32.0) Anion Gap 8 MEQ/L (5-15) Blood Urea Nitrogen 34 MG/DL (7-18) Creatinine 0.70 MG/DL (0.60-1.30) Estimat Glomerular Filtration 119 ML/MIN Rate (>89) Random Glucose 263 MG/DL (74-106) Calcium Level 9.1 MG/DL (8.5-10.1) Phosphorus Level 2.7 MG/DL (2.5-4.9) Magnesium Level 2.2 MG/DL (1.5-2.5) Total Bilirubin 0.9 MG/DL (0.2-1.0) Aspartate Amino Transf 20 U/L (15-37) (AST/SGOT) Alanine Aminotransferase 58 U/L (12-78) (ALT/SGPT) Alkaline Phosphatase 77 U/L (45-117) Total Protein 7.0 GM/DL (6.4-8.2) Albumin 3.0 GM/DL (3.4-5.0) Blood Gas Puncture Site RT RADIAL Blood Gas Patient Temperature 98.6 Blood Gas HCO3 34 mmol/L (22-26) Blood Gas Base Excess 9.8 mmol/L (-2-2) Blood Gas Oxygen Saturation 95 % (90-100) Arterial Blood pH 7.51 (7.380-7.420) Arterial Blood Partial 43 mmHg (38-42) Pressure CO2 Arterial Blood Partial 103 mmHg Pressure O2 (61-120) Arterial Blood Oxygen Content 19.6 Vol % (12.0-20.0) Arterial Blood 1.3 % (0-4) Carboxyhemoglobin Arterial Blood Methemoglobin 1.2 % (0-2) Blood Gas Hemoglobin 14.6 G/DL (12.0-16.0) Blood Gas Ventilator Setting Blood Gas Inspired Oxygen 50 % Result Diagram: 04/16/16 0515 04/16/16 0515 Imaging Last Impressions Chest X-Ray 04/16/16 0600 Signed Impressions: Service Date/Time: Saturday, April 16, 2016 03:58 - CONCLUSION: 1. Cardiomegaly. Bilateral lower lobe atelectasis versus pneumonia. There has been no significant change when compared to the prior exam. Kyaw Rojo MD Abdomen X-Ray 03/31/16 0000 Signed Impressions: Service Date/Time: Thursday, March 31, 2016 09:58 - CONCLUSION: Benign abdomen. Rodrigo Martinez MD Chest CT 03/28/16 0836 Signed Impressions: Service Date/Time: Monday, March 28, 2016 09:57 - CONCLUSION: Development areas of air bronchograms and consolidation more prominent in the right and left posterior basilar segments of the lower lobes. ET tube above the chanelle. Bernard Hartman MD CT Angiography 03/24/16 1121 Signed Impressions: Service Date/Time: Thursday, March 24, 2016 12:47 - CONCLUSION: 1. There is respiratory motion artifact but no PE is identified through most of the segmental level pulmonary arteries. 2. Mildly enlarged main pulmonary artery may indicate pulmonary arterial hypertension. 3. 11 mm left lower lobe noncalcified pulmonary nodule. Suggest correlation with any prior imaging studies that could confirm longer-term stability. If none are available consider short-term followup noncontrast chest CT in approximately 3 months. Ubaldo Rodas MD Procedures 03/26intubated 03/26 left IJ central line 04/02right IJ central line . Assessment and Plan Disease Oriented Problem List: (1) Acute respiratory failure with hypoxia (2) Staphylococcus aureus pneumonia (3) Pulmonary edema (4) Hypoxia (5) JACOB (obstructive sleep apnea) (6) Pulmonary nodule, left (7) Obesity hypoventilation syndrome (8) Morbid obesity with BMI of 50.0-59.9, adult (9) Diabetes mellitus type 2 in obese Symptom Scale: (1) Anxiety (2) Dyspnea Pertinent Non-Medical Issues Psychosocial:Patient is , shares an apartment locally with his brother. Apparently has 2 other siblings as well as 2 adult children who live in the [place] area. Has designated his brother Farhat as healthcare surrogate. 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 Spiritual: Legal:Patient is not able to participate in decision-making due to clinical condition. Has completed designation naming his brother Farhat as HCS. Ethical issues impacting care: Important Contacts brother Farhat Leger [phone] (HCS) Brother Gagandeep Leger [phone] . Prognosis This patient was admitted for further evaluation of obesity hypoventilation syndrome; absolutely developed acute respiratory failure requiring mechanical ventilation. Has continued to require high levels of ventilator support, though other organ functions remain preserved. Possible he can recover from this however currently remains in critical condition, prognosis guarded. . Code Status: Full Code (per attending documentation ) Plan * Legal decision maker: Patiently currently unable to participate in goals / decision-making due to clinical condition. It is not clear if he will regain decision-making capacity. He has designated his brother Farhat as healthcare surrogate. * Goals: Recent meeting with 2 brothers and a sister indicate that Goals are aggressive, family seems to good understanding of current conditions and prognosis. 04/11/16: Farhat says he has spoken with the patient's two 20- something daughters in [place] and they want to continue aggressive care and full CODE STATUS. Farhat says he did discuss with them the poor prognosis. I encouraged him to encouraged them to come down here to see their father, and let him know that we would be happy to discuss this further with them also. He says he, the healthcare surrogate, would lean toward de-escalation of care but he wants to honor the daughter's wishes. 04/16/16 -- Family seems to have overall good understanding. They remain cautiously optimistic. Goals remain aggressive. Open to ongoing updates and revisiting goals of care as clinical condition evolves. * CODE STATUS: Full code. * SYMPTOMS: --Dyspnea-emergently intubated, has remained on high ventilator settings as well as prone bed-- prone bed d/c. Currently vent asynchrony controlled with multiple sedatives (fentanyl, Versed, Diprivan, ) --Anxiety-risk for related to prolonged intubation, hospitalization, underlying respiratory issues; currently appears comfortable on multiple sedatives (fentanyl, Versed, Diprivan) starting to become more alert/responsive will need ongoing assessments. * Palliative care will continue to follow during hospital course as condition evolves, to assist patient/decision-maker with understanding of medical conditions, weighing benefits/burdens of treatment options, for clarification of goals of treatment. Additionally will assist with any symptoms of palliative concern Time Spent Total Floor Time (mins): 60 >50% Counseling/Coord of Care: Yes (discussed with RN, critical care) Irais Josue Apr 16, 2016 11:53
--- NOTE | 2016-04-16 15:50 | HHI.PR ---
Subjective Remarks ON THE VENT SEDATED FIO2 AT 50% Objective Vital Signs Date Time Temp Pulse Resp B/P Pulse Ox O2 Delivery O2 Flow Rate FiO2 04/16/16 14:00 106 04/16/16 12:00 106 04/16/16 12:00 99.6 106 18 129/74 95 04/16/16 12:00 50 04/16/16 11:58 95 50 04/16/16 10:00 114 04/16/16 08:13 90 50 04/16/16 08:00 106 04/16/16 08:00 50 04/16/16 08:00 99.4 106 18 113/81 90 04/16/16 06:00 97 04/16/16 04:21 92 50 04/16/16 04:00 95 04/16/16 04:00 50 04/16/16 04:00 98.5 95 15 125/75 91 04/16/16 02:00 100 04/16/16 00:34 93 50 04/16/16 00:00 96 04/16/16 00:00 98.4 96 15 138/79 93 04/16/16 00:00 50 04/15/16 22:00 90 04/15/16 21:34 94 50 04/15/16 20:00 50 04/15/16 20:00 99.5 89 15 128/84 94 04/15/16 20:00 89 04/15/16 19:25 94 50 04/15/16 18:00 86 04/15/16 16:00 93 04/15/16 16:00 50 04/15/16 16:00 98.2 93 15 125/74 93 I/O 04/15/16 04/15/16 04/15/16 04/16/16 04/16/16 04/16/16 07:00 15:00 23:00 07:00 15:00 23:00 Intake Total 878 ml 925 ml 759 ml 598 ml Output Total 2000 ml 1275 ml 1625 ml 1250 ml Balance -1122 ml -350 ml -866 ml -652 ml IV Total 528 ml 374 ml 358 ml 226 ml Tube Feeding 350 ml 311 ml 341 ml 332 ml Other 240 ml 60 ml 40 ml Output Urine Total 2000 ml 1275 ml 1625 ml 1250 ml Stool Total 0 ml # Bowel Movements 1 0 Result Diagram: 04/16/1615 04/16/16514 Objective Remarks GENERAL: SKIN: Warm and dry. HEAD: Atraumatic. Normocephalic. EYES: Pupils equal and round. No scleral icterus. No injection or drainage. ENT: No nasal bleeding or discharge. Mucous membranes pink and moist. NECK: Trachea midline. No JVD. CARDIOVASCULAR: Regular rate and rhythm. RESPIRATORY: No accessory muscle use. Clear to auscultation. Breath sounds equal bilaterally. GASTROINTESTINAL: Abdomen soft, non-tender, nondistended. Hepatic and splenic margins not palpable. MUSCULOSKELETAL: Extremities without clubbing, cyanosis, or edema. No obvious deformities. NEUROLOGICAL: Awake and alert. No obvious cranial nerve deficits. Motor grossly within normal limits. Five out of 5 muscle strength in the arms and legs. Normal speech. PSYCHIATRIC: Appropriate mood and affect; insight and judgment normal. Assessment and Plan Assessment and Plan RESPIRATORY FAILURE SEPSIS ARDS JACOB/CSA PLAN VENT SUPPORT PULM TOILET WEAN TOLERATED. Orlando Perry MD Apr 16, 2016 15:50
[2016-04-16] MEDS: PANTOPRAZOLE SODIUM 40 MG VIAL IV PUSH SCH (17:04)
[2016-04-17] VITALS (18 sets, daily range): BP systolic 97–117; BP diastolic 54–66; PULSE 73–91; RESP 15–18; TEMP 97.8–99.6; O2SAT 90–97
[2016-04-17] MEDS: FUROSEMIDE 20 MG/2 ML VIAL IV PUSH SCH ×4 (00:17→23:34)
[2016-04-17] MEDS: INSULIN NovoLIN REGULAR SUPPLEMENTAL SCALE SQ SCH ×5 (00:17→23:35)
[2016-04-17] MEDS: fentaNYL 2,500 MCG/NS 250 ML IV SCH ×5 (00:18→23:34)
[2016-04-17] MEDS: MIDAZOLAM 100 MG/ML INJ 100 ML IV SCH ×3 (00:18→23:35)
[2016-04-17] MEDS: EPOPROSTENOL NEB SOLUTION 30 NG/KG/MIN 100 ML NEB SCH ×6 (03:28→19:51)
[2016-04-17] MEDS: ENOXAPARIN SODIUM 40 MG/0.4 ML SYRINGE SQ SCH ×2 (03:31→17:46)
[2016-04-17] MEDS: METOCLOPRAMIDE HCL 10 MG/2 ML VIAL IV PUSH SCH ×3 (03:32→19:50)
[2016-04-17 07:20] LABS: AUTOMATED NEUTROPHIL # 13.6 TH/MM3 (1.8-7.7); BASOPHIL % 0.3 % (0.0-2.0); EOSINOPHIL % 0.2 % (0.0-4.0); HEMATOCRIT 40.1 % (39.0-51.0); LYMPH % 7.8 % (9.0-44.0); LYMPHOCYTE # 1.2 TH/MM3 (1.0-4.8); MEAN CELL VOLUME 82.7 FL (80.0-100.0); MEAN CORPUSCULAR HEMOGLOBIN 27.3 PG (27.0-34.0); MONO % 6.5 % (0.0-8.0); NEUT % 85.2 % (16.0-70.0); PLATELET COUNT 244 TH/MM3 (150-450); RED BLOOD COUNT 4.85 MIL/MM3 (4.50-5.90); RED CELL DISTRIBUTION WIDTH 15.3 % (11.6-17.2); WHITE BLOOD COUNT 15.9 TH/MM3 (4.0-11.0)
[2016-04-17] MEDS: methylPREDNISolone SOD SUCC 40 MG/1 ML VIAL IV PUSH SCH (07:26)
[2016-04-17] MEDS: SENNOSIDES SYRUP 8.8 MG/5 ML CUP PO/TUBE SCH ×2 (07:26→19:50)
[2016-04-17] MEDS: DOCUSATE SODIUM 100 MG/10 ML UDC PO SCH ×2 (07:26→19:50)
[2016-04-17] MEDS: LACTOBACILLUS ACIDOPHILUS TAB PO SCH ×3 (07:27→17:46)
[2016-04-17] MEDS: INSULIN DETEMIR 100 UNITS/ML VIAL SQ SCH ×2 (07:27→19:51)
[2016-04-17] MEDS: BETAMETHASONE/CLOTRIMAZOLE CREAM 15 GM TOPICAL SCH ×2 (07:29→19:50)
[2016-04-17] MEDS: BENEPROTEIN POWDER 1 PACK G-TUBE SCH ×3 (07:29→17:44)
[2016-04-17] MEDS: CHLORHEXIDINE 0.12% (ORAL KIT) 15 ML CUP MT SCH ×2 (07:31→19:55)
[2016-04-17 07:33] LABS: HEMO FLAGS AUTO DIFF
[2016-04-17 07:48] LABS: BICARBONATE 34.1 MEQ/L (21.0-32.0); MAGNESIUM 2.4 MG/DL (1.5-2.5); POTASSIUM 3.3 MEQ/L (3.5-5.1)
[2016-04-17] MEDS: POTASSIUM CL 40 MEQ/30 ML LIQ UDC PO/TUBE PRN (08:10)
[2016-04-17 08:28] LABS: BANDS 1 % (0-6); MYELOCYTES 1 % (0-0); PLATELET ESTIMATE SMEAR NORMAL (NORMAL); PLATELET MORPHOLOGY NORMAL (NORMAL); POLYS (SEG NEUTROPHILS) 86 % (16-70); SCAN/DIFF FINAL DIFF MANUAL; WBC DIFF SAMPLE 100
[2016-04-17] MEDS: SODIUM CHLORIDE 0.9% FLUSH 5 ML FLUSH IVF SCH (09:00)
[2016-04-17] MEDS: ARTIFICIAL TEARS OPTH OINT 3.5 APPLIC/3.5 GM TUBO EACH EYE SCH ×2 (09:00→19:56)
--- NOTE | 2016-04-17 09:04 | HHI.CCPN ---
Subjective Remarks/Hospital Course Patient is a 50 years old obese male with past medical history significant for undiagnosed sleep apnea, super morbid obesity, type 2 diabetes was brought to the emergency department on 03/24/16 after feeling light headed and dizzy. On presentation here was found to be hypoxemic and ABG showed severe hypoxemia and hypercarbia. For a recent driving physical he was diagnosed with low oxygen saturations. Patient's oxygen saturation the ED was in the low 80s, which was confirmed on ABG with a oxygen saturation of 78% and PO2 of 46. CTA negative for PE. Patient was initiated on BiPAP therapy with consult to pulmonary Dr. Crane. His oxygenation improved but he continued to be hypercapnic. Today a.m. on nasal cannula his pH was 7.26 and PCO2 was increased at 99, patient was somnolent was placed back on BiPAP and repeat ABG at noon showed pH 7.26 PCO2 98 and pO2 70. This was on 16 BiPAP with FiO2 50%. Critical care was consulted. On my evaluation patient is somnolent but wakes up easily. I reduced the PEEP on BiPAP from 12-7 to facilitate better ventilation. A repeat ANG showed only minimal improvement, so decision made to intubate patient. Glidescope with #4 blade was used. Only propofol was used for induction. Initially I had a Grade 1-2 view, but I was unable to pass tube through the vocal cord to trachea in two attempts. Tube slipped out of Laryngeal opening both times. Dr Garrett intubated patient after NM paralysis with succinylcholine. Post intubation ABG showed improvement in hypercapnia and oxygenation. 03/27/16: Patient remains intubated heavily sedated with propofol and fentanyl. Remained severely hypoxemic on 100% FiO2, PEEP12, chest x-ray shows bibasilar infiltrates. Flagyl added. We'll give 1 dose of vancomycin-Adjust antibiotics according to cultures. Patient super morbid obesity may prevent Prone therapy 03/28: Remains hypoxic but ABG shows marginal improvement in oxygenation. WBC increasing 20.1 today. Start vancomycin scheduled. 03/29: Oxygenation is slightly improved. FiO2 reduced to 50% today. Chest x- ray remains unchanged. On sedation hold patient does wake up and follow commands. WBC count remains at 20 03/30 No acute events overnight. Sedated with Diprivan and Fentanyl. Had T: 100.1 at 4 am. WBC trending down 15.9 today from 20. 03/31 Patient remains sedated with Diprivan, Fentanyl and intubated. Tmax 100.1. Patient required increase O2 overnight now on ACV with PEEP: 12 and FIO2 70%. 04/01: Tmax 99.7. No bowel movement since admission. Patient has bowel sounds. Arousable on the ventilator. We'll attempt prone the patient paralyzed to increase oxygenation status. 04/02: MAXIMUM TEMPERATURE 100.9. Currently 97.7. 5 10 cc stools overnight. Placed on Roto prone yesterday. Saturations currently 94% on Flolan. Diuresed overnight. Creatinine still within normal limits. 04/03: Tmax 101. Currently 99.1. Positive BM. Did not tolerate not being unprone this AM. Saturations much improved prone. Tolerating tube feeding. Subjective 04/04: Tmax 100.8. Currently 98.8. +2 L past 24 hours. Attempt to on prone today. Positive BM. C. difficile negative. Remains paralyzed. 04/05: Remains sedated, orally intubated on neuromuscular blockade on mechanical ventilation. Remains on Rota prone bed. On insulin drip. 04/06: Remains sedated, orally intubated on neuromuscular blockade, on mechanical ventilation. Remains on Rota prone bed. Insulin drip continues. 04/07 Patient remains on Rotoprone bed sedated with Diprivan, Versed, Fentanyl in addition patient is on Nimbex. Afebrile. On Insulin drip 5u/hr. 04/08 Patient remains sedated and intubated and on Nimbex. Off insulin drip. On PRVC/AC with RR 15, TV 550, IT: 1.65, PEEP: 15 and FIO2 100%. T: 100.2 at 4 am. 04/09 Patient is sedated, intubated and remains on neuromuscular blockade. Vent setting unchanged. afebrile. 04/10 Patient remains sedated and intubated and on Nimbex. On PRVC/AC, RR 15, TV 500, PEEP: 15, FIO2 90%, IT:1.65, on Flolan drip. Remains on Rotoprone bed. 04/11 minimal improvement in oxygenation, FiO2 now at 75 - continue to improve oxygenation, worsening CXR 2/10/11 continue to improve oxygenation DC'd prone position last night 04/14- improving oxygenation, Nimbex discontinued as well as prone position 04/16 Patient is sedated with Versed and Fentanyl and intubated. Off rotoprone bed. On PRVC/AC RR 15, TV 550, IT 1.65, PEEP:15, FIO2 50%. 04/17 Patient remains sedated with Versed and Fentanyl. Afebrile, tolerating tube feeds Objective Vital Signs Date Time Temp Pulse Resp B/P Pulse Ox O2 Delivery O2 Flow Rate FiO2 04/17/16 08:35 91 60 04/17/16 06:00 91 04/17/16 04:00 98.9 15 105/61 Intake and Output 04/16/16 04/16/16 04/17/16 08:00 16:00 00:00 Intake Total 598 ml 1011 ml 1177 ml Output Total 1250 ml 725 ml 1100 ml Balance -652 ml 286 ml 77 ml Result Diagram: 04/17/16 0600 04/17/16 0600 Other Results Laboratory Tests Test 04/16/16 04/17/16 16:00 06:00 Potassium Level 3.6 MEQ/L 3.3 MEQ/L White Blood Count 15.9 TH/MM3 Red Blood Count 4.85 MIL/MM3 Hemoglobin 13.2 GM/DL Hematocrit 40.1 % Mean Corpuscular Volume 82.7 FL Mean Corpuscular Hemoglobin 27.3 PG Mean Corpuscular Hemoglobin 33.0 % Concent Red Cell Distribution Width 15.3 % Platelet Count 244 TH/MM3 Mean Platelet Volume 9.8 FL Neutrophils (%) (Auto) 85.2 % Lymphocytes (%) (Auto) 7.8 % Monocytes (%) (Auto) 6.5 % Eosinophils (%) (Auto) 0.2 % Basophils (%) (Auto) 0.3 % Neutrophils # (Auto) 13.6 TH/MM3 Lymphocytes # (Auto) 1.2 TH/MM3 Monocytes # (Auto) 1.0 TH/MM3 Eosinophils # (Auto) 0.0 TH/MM3 Basophils # (Auto) 0.0 TH/MM3 CBC Comment AUTO DIFF Differential Total Cells 100 Counted Neutrophils % (Manual) 86 % Band Neutrophils % 1 % Lymphocytes % 8 % Monocytes % 4 % Neutrophils # (Manual) 14.0 TH/MM3 Myelocytes 1 % Differential Comment FINAL DIFF MANUAL Platelet Estimate NORMAL Platelet Morphology Comment NORMAL Red Cell Morphology Comment NORMAL Sodium Level 142 MEQ/L Chloride Level 98 MEQ/L Carbon Dioxide Level 34.1 MEQ/L Anion Gap 10 MEQ/L Blood Urea Nitrogen 42 MG/DL Creatinine 0.61 MG/DL Estimat Glomerular Filtration 140 ML/MIN Rate Random Glucose 251 MG/DL Calcium Level 9.0 MG/DL Phosphorus Level 3.4 MG/DL Magnesium Level 2.4 MG/DL Imaging Last Impressions Chest X-Ray 04/16/16 0600 Signed Impressions: Service Date/Time: Saturday, April 16, 2016 03:58 - CONCLUSION: 1. Cardiomegaly. Bilateral lower lobe atelectasis versus pneumonia. There has been no significant change when compared to the prior exam. Kyaw Rojo MD Abdomen X-Ray 03/31/16 0000 Signed Impressions: Service Date/Time: Thursday, March 31, 2016 09:58 - CONCLUSION: Benign abdomen. Rodrigo Martinez MD Chest CT 03/28/16 0836 Signed Impressions: Service Date/Time: Monday, March 28, 2016 09:57 - CONCLUSION: Development areas of air bronchograms and consolidation more prominent in the right and left posterior basilar segments of the lower lobes. ET tube above the chanelle. Bernard Hartman MD CT Angiography 03/24/16 1121 Signed Impressions: Service Date/Time: Thursday, March 24, 2016 12:47 - CONCLUSION: 1. There is respiratory motion artifact but no PE is identified through most of the segmental level pulmonary arteries. 2. Mildly enlarged main pulmonary artery may indicate pulmonary arterial hypertension. 3. 11 mm left lower lobe noncalcified pulmonary nodule. Suggest correlation with any prior imaging studies that could confirm longer-term stability. If none are available consider short-term followup noncontrast chest CT in approximately 3 months. Ubaldo Rodas MD Objective Remarks GENERAL: 50-year-old male, critically ill. Orally intubated on mechanical ventilation, on sedation and neuromuscular blockade SKIN: Evidence of seborrheic dermatitis of the face HEAD: Atraumatic. Normocephalic. EYES: Pupils equal round and slightly reactive about 3 millimeters bilaterally. ENT: NG tube in place. NECK: Very large neck. Trachea midline. Right IJ clean dry and intact CARDIOVASCULAR: Distant heart sounds. RRR. S1, S2. No S4. Without murmur RESPIRATORY: Orally intubated on mechanical ventilation, Breath sounds equal bilaterally. Diminished breath sounds due to body habitus. GASTROINTESTINAL: Abdomen soft, obese, nontender. Severe central obesity MUSCULOSKELETAL: Extremities with trace to 1+ nonpitting bilateral lower extremity edema. NEUROLOGICAL: Intubated and paralyzed on the ventilator. Date of Insertion: Apr 02, 2016 Line: Central Venous Catheter Side: Right Location: Internal, Jugular A/P Assessment and Plan 1)Acute respiratory failure 2)ARDS 3)Obstructive sleep apnea/ Obesity hypoventilation syndrome 4)Staph aureus pneumonia 5)Severe protein calorie malnutrition 6)Diabetes mellitus 7)Leukocytosis Plan: Neuro: On Fentanyl and Versed infusion for sedation. Daily sedation vacation when appropriate. Pulm: On PRVC/AC RR 15, TV 550, IT:1.65, PEEP:15, FIO2 60%. Decrease PEEP as luna Continue with vent support keep sat >92% Bronchodilators, ICU vent bundle. Will need trach once PEEP: is down to 5 Continue with Flolan 30ng/kg/min, Decrease Solumederol 40mg daily CV:Monitor HR and BP keep MAP>65mmHg : Monitor renal function, I/O's, electrolytes replacement per protocol. On Lasix 20mg Q8 GI: On Glucerna 1.5@45ml/hr, Protonix 40mg daily On Reglan 10mg Q8,Senna, Colace. ID: Off abx per ID (Levaquin stopped 04/16) Monitor for signs of infections ( Fever, WBC) Heme: Monitor CBC Endo: SSI for glycemic control ( high scale), Levemir insulin 45u Q12 DVT, GI prophylaxis -Bilateral lower extremity SCDs. IV Protonix 40 mg daily. Lovenox 40 mg sq BID LINES: - Right IJ CVL 04/02- present - Consult vascular team for PICC line placement Critical Care: The total critical care time was 30 minutes. Time to perform other separately billable procedures was not included in the critical care time. Rob Malloy MD Apr 17, 2016 09:04
[2016-04-17] MEDS: PANTOPRAZOLE SODIUM 40 MG VIAL IV PUSH SCH (17:45)
--- NOTE | 2016-04-17 19:19 | HHI.PR ---
Subjective Remarks ON THE VENT SEDATED FIO2 AT 60% Objective Vital Signs Date Time Temp Pulse Resp B/P Pulse Ox O2 Delivery O2 Flow Rate FiO2 04/17/16 18:00 73 04/17/16 17:01 90 60 04/17/16 16:00 73 04/17/16 16:00 99.6 73 18 117/65 92 04/17/16 16:00 50 04/17/16 14:00 82 04/17/16 13:00 97 60 04/17/16 12:00 97.8 78 18 111/59 93 04/17/16 12:00 83 04/17/16 12:00 50 04/17/16 10:00 83 04/17/16 08:35 91 60 04/17/16 08:00 83 04/17/16 08:00 98.6 83 18 97/54 92 04/17/16 08:00 50 04/17/16 06:00 91 04/17/16 04:00 95 50 04/17/16 04:00 50 04/17/16 04:00 98.9 81 15 105/61 93 04/17/16 04:00 82 04/17/16 02:00 80 04/17/16 01:14 96 50 04/17/16 00:00 50 04/17/16 00:00 78 04/17/16 00:00 99.0 83 15 107/55 94 04/16/16 22:20 96 50 04/16/16 22:00 75 04/16/16 20:00 50 04/16/16 20:00 99.2 121 15 135/84 96 04/16/16 20:00 121 04/16/16 19:45 96 50 I/O 04/16/16 04/16/16 04/16/16 04/17/16 04/17/16 04/17/16 07:00 15:00 23:00 07:00 15:00 23:00 Intake Total 598 ml 1011 ml 1177 ml 854 ml 1123 ml Output Total 1250 ml 725 ml 1100 ml 750 ml 900 ml Balance -652 ml 286 ml 77 ml 104 ml 223 ml IV Total 226 ml 499 ml 719 ml 374 ml 396 ml Tube Feeding 332 ml 312 ml 258 ml 280 ml 527 ml Other 40 ml 200 ml 200 ml 200 ml 200 ml Output Urine Total 1250 ml 725 ml 1000 ml 700 ml 900 ml Stool Total 100 ml 50 ml # Bowel Movements 0 Result Diagram: 04/17/16 0600 04/17/16 1350 Objective Remarks GENERAL: SKIN: Warm and dry. HEAD: Atraumatic. Normocephalic. EYES: Pupils equal and round. No scleral icterus. No injection or drainage. ENT: No nasal bleeding or discharge. Mucous membranes pink and moist. NECK: Trachea midline. No JVD. CARDIOVASCULAR: Regular rate and rhythm. RESPIRATORY: No accessory muscle use. Clear to auscultation. Breath sounds equal bilaterally. GASTROINTESTINAL: Abdomen soft, non-tender, nondistended. Hepatic and splenic margins not palpable. MUSCULOSKELETAL: Extremities without clubbing, cyanosis, or edema. No obvious deformities. NEUROLOGICAL: Awake and alert. No obvious cranial nerve deficits. Motor grossly within normal limits. Five out of 5 muscle strength in the arms and legs. Normal speech. PSYCHIATRIC: Appropriate mood and affect; insight and judgment normal. Assessment and Plan Assessment and Plan RESPIRATORY FAILURE SEPSIS ARDS JACOB/CSA PLAN VENT SUPPORT PULM TOILET WEAN TOLERATED. Orlando Perry MD Apr 17, 2016 19:19
[2016-04-18] VITALS (19 sets, daily range): BP systolic 107–120; BP diastolic 61–70; PULSE 75–93; RESP 15; TEMP 98.4–101.5; O2SAT 90–96
[2016-04-18] MEDS: EPOPROSTENOL NEB SOLUTION 30 NG/KG/MIN 100 ML NEB SCH ×2 (02:09)
[2016-04-18] MEDS: METOCLOPRAMIDE HCL 10 MG/2 ML VIAL IV PUSH SCH ×3 (03:42→21:32)
[2016-04-18] MEDS: ENOXAPARIN SODIUM 40 MG/0.4 ML SYRINGE SQ SCH ×2 (03:42→18:07)
[2016-04-18] MEDS: INSULIN NovoLIN REGULAR SUPPLEMENTAL SCALE SQ SCH ×3 (03:42→18:08)
[2016-04-18 05:21] LABS: AUTOMATED NEUTROPHIL # 12.6 TH/MM3 (1.8-7.7); BASOPHIL % 0.2 % (0.0-2.0); EOSINOPHIL # 0.2 TH/MM3 (0-0.4); EOSINOPHIL % 1.2 % (0.0-4.0); HEMATOCRIT 40.1 % (39.0-51.0); HEMO FLAGS DIFF FINAL; LYMPH % 13.2 % (9.0-44.0); LYMPHOCYTE # 2.1 TH/MM3 (1.0-4.8); MEAN CELL VOLUME 84.3 FL (80.0-100.0); MEAN CORPUSCULAR HEMOGLOBIN 26.7 PG (27.0-34.0); MEAN CORPUSCULAR HGB CONC 31.7 % (32.0-36.0); MONO % 6.3 % (0.0-8.0); NEUT % 79.1 % (16.0-70.0); PLATELET COUNT 204 TH/MM3 (150-450); RED BLOOD COUNT 4.76 MIL/MM3 (4.50-5.90); RED CELL DISTRIBUTION WIDTH 15.1 % (11.6-17.2); WHITE BLOOD COUNT 15.9 TH/MM3 (4.0-11.0)
[2016-04-18 05:42] LABS: BICARBONATE 34.6 MEQ/L (21.0-32.0); POTASSIUM 3.2 MEQ/L (3.5-5.1)
[2016-04-18] MEDS: POTASSIUM CHLOR 40 MEQ PREMIX 100 ML IV PRN ×2 (05:51→07:58)
[2016-04-18] MEDS: methylPREDNISolone SOD SUCC 40 MG/1 ML VIAL IV PUSH SCH (07:55)
[2016-04-18] MEDS: DOCUSATE SODIUM 100 MG/10 ML UDC PO SCH ×2 (07:56→20:21)
[2016-04-18] MEDS: FUROSEMIDE 20 MG/2 ML VIAL IV PUSH SCH ×2 (07:56→16:23)
[2016-04-18] MEDS: LACTOBACILLUS ACIDOPHILUS TAB PO SCH ×3 (07:57→18:07)
[2016-04-18] MEDS: SENNOSIDES SYRUP 8.8 MG/5 ML CUP PO/TUBE SCH ×2 (07:57→20:21)
[2016-04-18] MEDS: CHLORHEXIDINE 0.12% (ORAL KIT) 15 ML CUP MT SCH ×2 (08:08→20:21)
[2016-04-18] MEDS: INSULIN DETEMIR 100 UNITS/ML VIAL SQ SCH ×2 (08:08→20:21)
[2016-04-18] MEDS: BETAMETHASONE/CLOTRIMAZOLE CREAM 15 GM TOPICAL SCH ×2 (08:08→20:22)
[2016-04-18] MEDS: BENEPROTEIN POWDER 1 PACK G-TUBE SCH ×3 (08:08→18:00)
[2016-04-18] MEDS: ARTIFICIAL TEARS OPTH OINT 3.5 APPLIC/3.5 GM TUBO EACH EYE SCH ×2 (08:08→20:22)
[2016-04-18] MEDS: SODIUM CHLORIDE 0.9% FLUSH 5 ML FLUSH IVF SCH (08:09)
[2016-04-18] MEDS: MIDAZOLAM 100 MG/ML INJ 100 ML IV SCH ×2 (09:30→20:21)
--- NOTE | 2016-04-18 09:46 | HHI.CCPN ---
Subjective Remarks/Hospital Course Patient is a 50 years old obese male with past medical history significant for undiagnosed sleep apnea, super morbid obesity, type 2 diabetes was brought to the emergency department on 03/24/16 after feeling light headed and dizzy. On presentation here was found to be hypoxemic and ABG showed severe hypoxemia and hypercarbia. For a recent driving physical he was diagnosed with low oxygen saturations. Patient's oxygen saturation the ED was in the low 80s, which was confirmed on ABG with a oxygen saturation of 78% and PO2 of 46. CTA negative for PE. Patient was initiated on BiPAP therapy with consult to pulmonary Dr. Crane. His oxygenation improved but he continued to be hypercapnic. Today a.m. on nasal cannula his pH was 7.26 and PCO2 was increased at 99, patient was somnolent was placed back on BiPAP and repeat ABG at noon showed pH 7.26 PCO2 98 and pO2 70. This was on 16 BiPAP with FiO2 50%. Critical care was consulted. On my evaluation patient is somnolent but wakes up easily. I reduced the PEEP on BiPAP from 12-7 to facilitate better ventilation. A repeat ANG showed only minimal improvement, so decision made to intubate patient. Glidescope with #4 blade was used. Only propofol was used for induction. Initially I had a Grade 1-2 view, but I was unable to pass tube through the vocal cord to trachea in two attempts. Tube slipped out of Laryngeal opening both times. Dr Garrett intubated patient after NM paralysis with succinylcholine. Post intubation ABG showed improvement in hypercapnia and oxygenation. 03/27/16: Patient remains intubated heavily sedated with propofol and fentanyl. Remained severely hypoxemic on 100% FiO2, PEEP12, chest x-ray shows bibasilar infiltrates. Flagyl added. We'll give 1 dose of vancomycin-Adjust antibiotics according to cultures. Patient super morbid obesity may prevent Prone therapy 03/28: Remains hypoxic but ABG shows marginal improvement in oxygenation. WBC increasing 20.1 today. Start vancomycin scheduled. 03/29: Oxygenation is slightly improved. FiO2 reduced to 50% today. Chest x- ray remains unchanged. On sedation hold patient does wake up and follow commands. WBC count remains at 20 03/30 No acute events overnight. Sedated with Diprivan and Fentanyl. Had T: 100.1 at 4 am. WBC trending down 15.9 today from 20. 03/31 Patient remains sedated with Diprivan, Fentanyl and intubated. Tmax 100.1. Patient required increase O2 overnight now on ACV with PEEP: 12 and FIO2 70%. 04/01: Tmax 99.7. No bowel movement since admission. Patient has bowel sounds. Arousable on the ventilator. We'll attempt prone the patient paralyzed to increase oxygenation status. 04/02: MAXIMUM TEMPERATURE 100.9. Currently 97.7. 5 10 cc stools overnight. Placed on Roto prone yesterday. Saturations currently 94% on Flolan. Diuresed overnight. Creatinine still within normal limits. 04/03: Tmax 101. Currently 99.1. Positive BM. Did not tolerate not being unprone this AM. Saturations much improved prone. Tolerating tube feeding. Subjective 04/04: Tmax 100.8. Currently 98.8. +2 L past 24 hours. Attempt to on prone today. Positive BM. C. difficile negative. Remains paralyzed. 04/05: Remains sedated, orally intubated on neuromuscular blockade on mechanical ventilation. Remains on Rota prone bed. On insulin drip. 04/06: Remains sedated, orally intubated on neuromuscular blockade, on mechanical ventilation. Remains on Rota prone bed. Insulin drip continues. 04/07 Patient remains on Rotoprone bed sedated with Diprivan, Versed, Fentanyl in addition patient is on Nimbex. Afebrile. On Insulin drip 5u/hr. 04/08 Patient remains sedated and intubated and on Nimbex. Off insulin drip. On PRVC/AC with RR 15, TV 550, IT: 1.65, PEEP: 15 and FIO2 100%. T: 100.2 at 4 am. 04/09 Patient is sedated, intubated and remains on neuromuscular blockade. Vent setting unchanged. afebrile. 04/10 Patient remains sedated and intubated and on Nimbex. On PRVC/AC, RR 15, TV 500, PEEP: 15, FIO2 90%, IT:1.65, on Flolan drip. Remains on Rotoprone bed. 04/11 minimal improvement in oxygenation, FiO2 now at 75 - continue to improve oxygenation, worsening CXR 2/10/11 continue to improve oxygenation DC'd prone position last night 04/14- improving oxygenation, Nimbex discontinued as well as prone position 04/16 Patient is sedated with Versed and Fentanyl and intubated. Off rotoprone bed. On PRVC/AC RR 15, TV 550, IT 1.65, PEEP:15, FIO2 50%. 04/17 Patient remains sedated with Versed and Fentanyl. Afebrile, tolerating tube feeds 04/18 No acute events overnight Sedated and intubated. Afebrile. On PRVC/AC RR 15 , TV 550, IT 1.65, PEEP:15, FIO2 60% Objective Vital Signs Date Time Temp Pulse Resp B/P Pulse Ox O2 Delivery O2 Flow Rate FiO2 04/18/16 08:21 91 50 04/18/16 06:00 85 04/18/16 04:00 98.4 15 112/61 Intake and Output 04/17/16 04/17/16 04/18/16 08:00 16:00 00:00 Intake Total 854 ml 1123 ml 838 ml Output Total 750 ml 900 ml 1050 ml Balance 104 ml 223 ml -212 ml Result Diagram: 04/18/16 0350 04/18/16 0350 Other Results Laboratory Tests Test 04/17/16 04/18/16 13:50 03:50 Potassium Level 4.0 MEQ/L 3.2 MEQ/L White Blood Count 15.9 TH/MM3 Red Blood Count 4.76 MIL/MM3 Hemoglobin 12.7 GM/DL Hematocrit 40.1 % Mean Corpuscular Volume 84.3 FL Mean Corpuscular Hemoglobin 26.7 PG Mean Corpuscular Hemoglobin 31.7 % Concent Red Cell Distribution Width 15.1 % Platelet Count 204 TH/MM3 Mean Platelet Volume 9.6 FL Neutrophils (%) (Auto) 79.1 % Lymphocytes (%) (Auto) 13.2 % Monocytes (%) (Auto) 6.3 % Eosinophils (%) (Auto) 1.2 % Basophils (%) (Auto) 0.2 % Neutrophils # (Auto) 12.6 TH/MM3 Lymphocytes # (Auto) 2.1 TH/MM3 Monocytes # (Auto) 1.0 TH/MM3 Eosinophils # (Auto) 0.2 TH/MM3 Basophils # (Auto) 0.0 TH/MM3 CBC Comment DIFF FINAL Differential Comment Sodium Level 144 MEQ/L Chloride Level 100 MEQ/L Carbon Dioxide Level 34.6 MEQ/L Anion Gap 9 MEQ/L Blood Urea Nitrogen 48 MG/DL Creatinine 0.56 MG/DL Estimat Glomerular Filtration 154 ML/MIN Rate Random Glucose 151 MG/DL Calcium Level 9.1 MG/DL Imaging Last Impressions Chest X-Ray 04/16/16 0600 Signed Impressions: Service Date/Time: Saturday, April 16, 2016 03:58 - CONCLUSION: 1. Cardiomegaly. Bilateral lower lobe atelectasis versus pneumonia. There has been no significant change when compared to the prior exam. Kyaw Rojo MD Abdomen X-Ray 03/31/16 0000 Signed Impressions: Service Date/Time: Thursday, March 31, 2016 09:58 - CONCLUSION: Benign abdomen. Rodrigo Martinez MD Chest CT 03/28/16 0836 Signed Impressions: Service Date/Time: Monday, March 28, 2016 09:57 - CONCLUSION: Development areas of air bronchograms and consolidation more prominent in the right and left posterior basilar segments of the lower lobes. ET tube above the chanelle. Bernard Hartman MD CT Angiography 03/24/16 1121 Signed Impressions: Service Date/Time: Thursday, March 24, 2016 12:47 - CONCLUSION: 1. There is respiratory motion artifact but no PE is identified through most of the segmental level pulmonary arteries. 2. Mildly enlarged main pulmonary artery may indicate pulmonary arterial hypertension. 3. 11 mm left lower lobe noncalcified pulmonary nodule. Suggest correlation with any prior imaging studies that could confirm longer-term stability. If none are available consider short-term followup noncontrast chest CT in approximately 3 months. Ubaldo Rodas MD Objective Remarks GENERAL: 50-year-old male, critically ill. Orally intubated on mechanical ventilation, on sedation and neuromuscular blockade SKIN: Evidence of seborrheic dermatitis of the face HEAD: Atraumatic. Normocephalic. EYES: Pupils equal round and slightly reactive about 3 millimeters bilaterally. ENT: NG tube in place. NECK: Very large neck. Trachea midline. Right IJ clean dry and intact CARDIOVASCULAR: Distant heart sounds. RRR. S1, S2. No S4. Without murmur RESPIRATORY: Orally intubated on mechanical ventilation, Breath sounds equal bilaterally. Diminished breath sounds due to body habitus. GASTROINTESTINAL: Abdomen soft, obese, nontender. Severe central obesity MUSCULOSKELETAL: Extremities with trace to 1+ nonpitting bilateral lower extremity edema. NEUROLOGICAL: Intubated and paralyzed on the ventilator. Date of Insertion: Apr 02, 2016 Line: Central Venous Catheter Side: Right Location: Internal, Jugular A/P Assessment and Plan 1)Acute respiratory failure 2)ARDS 3)Obstructive sleep apnea/ Obesity hypoventilation syndrome 4)Staph aureus pneumonia 5)Severe protein calorie malnutrition 6)Diabetes mellitus 7)Leukocytosis Plan: Neuro: On Fentanyl and Versed infusion for sedation. Daily sedation vacation when appropriate. Pulm: On PRVC/AC RR 15, TV 550, IT:1.65, PEEP:15, FIO2 60%. Decrease FIO2 50% Continue with vent support keep sat >92%. Check CXR Bronchodilators, ICU vent bundle. Will need trach once oxygen requirements improved. Taper Flolan, decrease 20ng/kg/min, on Solumederol 40mg daily CV:Monitor HR and BP keep MAP>65mmHg : Monitor renal function, I/O's, electrolytes replacement per protocol. On Lasix 20mg Q8. Will need K replacement today GI: On Glucerna 1.5@45ml/hr, Protonix 40mg daily On Reglan 10mg Q8,Senna, Colace. ID: Off abx per ID (Levaquin stopped 04/16) Monitor for signs of infections ( Fever, WBC) Heme: Monitor CBC Endo: SSI for glycemic control ( high scale), Levemir insulin 45u Q12 DVT, GI prophylaxis -Bilateral lower extremity SCDs. IV Protonix 40 mg daily. Lovenox 40 mg sq BID LINES: - PICC line placed 04/15 Critical Care: The total critical care time was 30 minutes. Time to perform other separately billable procedures was not included in the critical care time. Rob Malloy MD Apr 18, 2016 09:46
--- NOTE | 2016-04-18 09:51 | HHI.IDPN ---
Subjective Subjective Remarks Notes reviewed Temps ok. On PRVC, FiO2 at 50% Not much secretions On flolan, fentanyl, versed Tolerating TF BP good not on pressors Good UO Antibiotics None Lines TLC - 04/02 Past Medical History Reviewed Allergies: Coded Allergies: Penicillin (Verified Allergy, Severe, Swelling, 03/24/16) Tetanus Toxoid (Verified Allergy, Unknown, Swelling, 03/24/16) Objective . Vital Signs Date Time Temp Pulse Resp B/P Pulse Ox O2 Delivery O2 Flow Rate FiO2 04/18/16 08:21 91 50 04/18/16 06:00 85 04/18/16 04:01 92 60 04/18/16 04:00 80 04/18/16 04:00 60 04/18/16 04:00 98.4 86 15 112/61 96 04/18/16 02:00 77 04/18/16 01:10 92 60 04/18/16 00:00 60 04/18/16 00:00 75 04/18/16 00:00 98.4 75 15 115/70 92 04/17/16 22:30 94 60 04/17/16 22:00 80 04/17/16 20:00 60 04/17/16 20:00 99.3 81 15 117/66 94 04/17/16 20:00 79 04/17/16 19:35 94 60 04/17/16 18:00 73 04/17/16 17:01 90 60 04/17/16 16:00 73 04/17/16 16:00 99.6 73 18 117/65 92 04/17/16 16:00 50 04/17/16 14:00 82 04/17/16 13:00 97 60 04/17/16 12:00 97.8 78 18 111/59 93 04/17/16 12:00 83 04/17/16 12:00 50 04/17/16 10:00 83 04/17/16 04/17/16 04/18/16 15:00 23:00 07:00 Intake Total 1123 ml 838 ml 876 ml Output Total 900 ml 1050 ml 950 ml Balance 223 ml -212 ml -74 ml IV Total 396 ml 377 ml 357 ml Tube Feeding 527 ml 341 ml 319 ml Other 200 ml 120 ml 200 ml Output Urine Total 900 ml 900 ml 850 ml Stool Total 150 ml 100 ml . Laboratory Tests Test 04/17/16 04/18/16 06:00 03:50 White Blood Count 15.9 TH/MM3 15.9 TH/MM3 Red Blood Count 4.85 MIL/MM3 4.76 MIL/MM3 Hemoglobin 13.2 GM/DL 12.7 GM/DL Hematocrit 40.1 % 40.1 % Mean Corpuscular Volume 82.7 FL 84.3 FL Mean Corpuscular Hemoglobin 27.3 PG 26.7 PG Mean Corpuscular Hemoglobin 33.0 % 31.7 % Concent Red Cell Distribution Width 15.3 % 15.1 % Platelet Count 244 TH/MM3 204 TH/MM3 Mean Platelet Volume 9.8 FL 9.6 FL Neutrophils (%) (Auto) 85.2 % 79.1 % Lymphocytes (%) (Auto) 7.8 % 13.2 % Monocytes (%) (Auto) 6.5 % 6.3 % Eosinophils (%) (Auto) 0.2 % 1.2 % Basophils (%) (Auto) 0.3 % 0.2 % Neutrophils # (Auto) 13.6 TH/MM3 12.6 TH/MM3 Lymphocytes # (Auto) 1.2 TH/MM3 2.1 TH/MM3 Monocytes # (Auto) 1.0 TH/MM3 1.0 TH/MM3 Eosinophils # (Auto) 0.0 TH/MM3 0.2 TH/MM3 Basophils # (Auto) 0.0 TH/MM3 0.0 TH/MM3 CBC Comment AUTO DIFF DIFF FINAL Differential Total Cells 100 Counted Neutrophils % (Manual) 86 % Band Neutrophils % 1 % Lymphocytes % 8 % Monocytes % 4 % Neutrophils # (Manual) 14.0 TH/MM3 Myelocytes 1 % Differential Comment FINAL DIFF MANUAL Platelet Estimate NORMAL Platelet Morphology Comment NORMAL Red Cell Morphology Comment NORMAL Laboratory Tests Test 04/16/16 04/17/16 04/17/16 04/18/16 16:00 06:00 13:50 03:50 Potassium Level 3.6 MEQ/L 3.3 MEQ/L 4.0 MEQ/L 3.2 MEQ/L Sodium Level 142 MEQ/L 144 MEQ/L Chloride Level 98 MEQ/L 100 MEQ/L Carbon Dioxide Level 34.1 MEQ/L 34.6 MEQ/L Anion Gap 10 MEQ/L 9 MEQ/L Blood Urea Nitrogen 42 MG/DL 48 MG/DL Creatinine 0.61 MG/DL 0.56 MG/DL Estimat Glomerular Filtration 140 ML/MIN 154 ML/MIN Rate Random Glucose 251 MG/DL 151 MG/DL Calcium Level 9.0 MG/DL 9.1 MG/DL Phosphorus Level 3.4 MG/DL Magnesium Level 2.4 MG/DL Imaging Chest X-Ray 04/16/16 0600 Signed Impressions: Service Date/Time: Saturday, April 16, 2016 03:58 - CONCLUSION: 1. Cardiomegaly. Bilateral lower lobe atelectasis versus pneumonia. There has been no significant change when compared to the prior exam. Kyaw Rojo MD Abdomen X-Ray 03/31/16 0000 Signed Impressions: Service Date/Time: Thursday, March 31, 2016 09:58 - CONCLUSION: Benign abdomen. Rodrigo Martinez MD Chest CT 03/28/16 0836 Signed Impressions: Service Date/Time: Monday, March 28, 2016 09:57 - CONCLUSION: Development areas of air bronchograms and consolidation more prominent in the right and left posterior basilar segments of the lower lobes. ET tube above the chanelle. Bernard Hartman MD CT Angiography 03/24/16 1121 Signed Impressions: Service Date/Time: Thursday, March 24, 2016 12:47 - CONCLUSION: 1. There is respiratory motion artifact but no PE is identified through most of the segmental level pulmonary arteries. 2. Mildly enlarged main pulmonary artery may indicate pulmonary arterial hypertension. 3. 11 mm left lower lobe noncalcified pulmonary nodule. Suggest correlation with any prior imaging studies that could confirm longer-term stability. If none are available consider short-term followup noncontrast chest CT in approximately 3 months. bUaldo Rodas MD Chest X-Ray 04/12/16 0600 Signed Impressions: Service Date/Time: April 04:14 - CONCLUSION: Worsening appearance of the chest. Henrry Andrea MD Chest X-Ray 04/11/16 0000 Signed Impressions: Service Date/Time: Monday, April 11, 2016 04:09 - CONCLUSION: No significant change has occurred. Henrry Andrea MD Chest X-Ray 04/09/16 0900 Signed Impressions: Service Date/Time: Saturday, April 09, 2016 09:12 - CONCLUSION: 1. Diffuse alveolar consolidation of the left lung and right upper lung field consistent with pneumonia and/or asymmetric pulmonary edema. Clinical correlation is recommended. 2. Endotracheal tube has its tip 1 cm above the chanelle. This could be pulled back 2 cm for more optimal position. Farhat Montes MD Chest X-Ray 04/05/16599 Signed Impressions: Service Date/Time: April 03:25 - CONCLUSION: 1. Improved basilar consolidation. Residual versus developing right midlung consolidation. 2. Small bilateral pleural effusions are suspected. 3. No change cardiomegaly or lines/tubes. Ubaldo Ortiz MD Chest X-Ray 04/04/16599 Signed Impressions: Service Date/Time: Monday, April 04, 2016 04:44 - CONCLUSION: Worsening bilateral airspace opacities, especially left perihilar. Ubaldo Ortiz MD Chest X-Ray 04/04/16599 Signed Impressions: Service Date/Time: Monday, April 04, 2016 04:44 - CONCLUSION: Worsening bilateral airspace opacities, especially left perihilar. Ubaldo Ortiz MD Chest X-Ray 04/03/16599 Signed Impressions: Service Date/Time: Sunday, April 03, 2016 00:16 - CONCLUSION: Potential developing pneumonia in the right upper lobe. Bibasilar atelectasis modestly worse in the interim. Ubaldo Ortiz MD Chest X-Ray 04/03/16599 Signed Impressions: Service Date/Time: Sunday, April 03, 2016 00:16 - CONCLUSION: Potential developing pneumonia in the right upper lobe. Bibasilar atelectasis modestly worse in the interim. Ubaldo Ortiz MD Chest X-Ray 04/02/1625 Signed Impressions: Service Date/Time: Saturday, April 02, 2016 09:22 - CONCLUSION: Place a right jugular catheter terminates superior vena cava with no pneumothorax. Bernard Hartman MD Physical Exam GENERAL: Morbidly obese, sedated, on the vent, NAD SKIN: Cool skin, no cyanosis. Flushed skin in face and trunk HEENT: No icterus, ET in place CHEST: Coarse BS bilaterally, decreased at bases CARDIAC: regular, no murmur ABDOMEN: soft, obese, (+) BS : Becker in place, urine looks clear MUSCULOSKELETAL: Extremities without clubbing, cyanosis. Has improving pedal edema and edema hands NEUROLOGICAL: Sedated on the vent. PSYCH: Unable to assess LINE: No evidence of infection Assessment & Plan Remarks IMPRESSION Leukocytosis, persistent, stable - has been on adequate Abx for pathogens isolated Pneumonia, C/S MSSA - Last CXR stable JACOB Respiratory failure, improving O2 requirement - has extensive infiltrates Morbid obesity Allergy to PCN, swelling Fevers, intermittent, better RECOMMENDATION Monitor progress Monitor off Abx Monitor for S/Sxs of new infection Weaning per [facility] Elisha Painter MD Apr 18, 2016 09:51
--- NOTE | 2016-04-18 10:37 | RADRPT ---
EXAM DATE/TIME: 04/18/2016 09:59 [place] COMPARISON: CHEST SINGLE AP, April 16, 2016, 3:58. INDICATIONS : Respiratory distress. MEDICAL HISTORY : Diabetes mellitus type II. SURGICAL HISTORY : None. ENCOUNTER: Subsequent ACUITY: 1 week PAIN SCORE: Non-responsive. LOCATION: Bilateral chest FINDINGS: The heart is enlarged. ET tubes in good position. There is a PICC line which enters from the left. Th e catheter tip overlies the SVC. There is a small basilar effusion on the left. There is diffuse interstitial prominence in an area of consolidation in the right hilar region. These changes are similar to previous examination. But unde rlying pneumonia is not excluded. CONCLUSION: 1. Support equipment in good position. 2. Small left basilar effusion and consolidative changes in the left lower lobe and perihilar region on the right. Dc Barton MD on April 18, 2016 at 10:33 Board Certified Radiologist. This report was verified electronically.
--- NOTE | 2016-04-18 15:44 | HHI.HCPN ---
Reason for visit a. To assist with evaluation and management of symptoms including: Dyspnea, anxiety b. To assist medical decision maker(s) with: better understanding of current medical conditions; weighing benefits/burdens of medical treatment options; making medical treatment decisions. (Irais Josue) Subjective/Interval History Has been removed off Rotoprone bed. No improvements and ventilator weaning thus far --PEEP 15, FiO2 60. Remains on fentanyl, Versed for sedation. CXR yesterday= Small left basilar effusion and consolidative changes in the left lower lobe and perihilar region on the right. WBC yesterday still mildly elevated 15.9. No new CBC today. Chemistry unremarkable, mildly hypokalemic 3.2. PT seen in room, no visitors present. Minimally responsive to my exam. Slight eye fluttering to verbal/touch. Otherwise nonresponsive. No apparent distress. sedated on fentanyl 250 mics, Versed 10 mg hour. Following exam call to patient brother KIMBERLY Dougherty. Voicemail left. . (Irais Josue) Advance Directives Living Will: Completed, but not made available Health Care Surrogate: Copy in medical record Durable Power of Slab Inspector: Completed, but not made available (Irais Josue) Advance Directive Specifics Date completed: 2016 Health Care Surrogate(s): Names brother Farhat Leger as [facility] (Irais Josue) Objective Vital Signs Date Time Temp Pulse Resp B/P Pulse Ox O2 Delivery O2 Flow Rate FiO2 04/18/16 12:00 99.5 89 15 117/64 91 04/18/16 12:00 50 04/18/16 12:00 89 04/18/16 11:47 94 50 04/18/16 10:00 93 04/18/16 08:21 91 50 04/18/16 08:00 99.1 90 15 110/65 91 04/18/16 08:00 50 04/18/16 08:00 90 04/18/16 06:00 85 04/18/16 04:01 92 60 04/18/16 04:00 80 04/18/16 04:00 60 04/18/16 04:00 98.4 86 15 112/61 96 04/18/16 02:00 77 04/18/16 01:10 92 60 04/18/16 00:00 60 04/18/16 00:00 75 04/18/16 00:00 98.4 75 15 115/70 92 04/17/16 22:30 94 60 04/17/16 22:00 80 04/17/16 20:00 60 04/17/16 20:00 99.3 81 15 117/66 94 04/17/16 20:00 79 04/17/16 19:35 94 60 04/17/16 18:00 73 04/17/16 17:01 90 60 04/17/16 16:00 73 04/17/16 16:00 99.6 73 18 117/65 92 04/17/16 16:00 50 Intake & Output 04/18/16 04/18/16 07:00 19:00 Intake Total 1714 ml Output Total 2000 ml Balance -286 ml IV Total 734 ml Tube Feeding 660 ml Other 320 ml Output Urine Total 1750 ml Stool Total 250 ml Physical Exam CONSTITUTIONAL/GENERAL: This is a morbidly obese, critically ill-appearing patient seen on specialty bed in ICU TUBES/LINES/DRAINS: ET tube, OG tube, central line, Becker catheter, rectal drain SKIN: No jaundice, rashes, or lesions.no wounds seen posteriorly. + generalized edema CARDIOVASCULAR: Regular rate and rhythm without murmurs.distant heart sounds. No JVD. Peripheral pulses symmetric. RESPIRATORY/CHEST: Symmetric, unlabored respirations via ET tube to mechanical vent. Decreased air movement throughout, scattered rhonchi. GASTROINTESTINAL: Abdomen soft, obese. Unable to determine to tenderness. TF infusing via OG tube. +liq stool via rectal drain MUSCULOSKELETAL: Extremities without clubbing, cyanosis. Significant generalized edema NEUROLOGICAL: Sedated, minimally responsive to exam. Slight eye flutter to touch, verbal-- however no eye opening and tracking. Does not withdrawal to pain stimuli for me. PSYCHIATRIC: No obvious anxiety/depression--limited exam due to clinical condition . (Irais Josue) Diagnostic Tests Laboratory Laboratory Tests Test 04/16/16 04/16/16 04/16/16 04/17/16 05:15 05:52 16:00 06:00 White Blood Count 19.6 TH/MM3 15.9 TH/MM3 (4.0-11.0) (4.0-11.0) Red Blood Count 5.07 MIL/MM3 4.85 MIL/MM3 (4.50-5.90) (4.50-5.90) Hemoglobin 13.7 GM/DL 13.2 GM/DL (13.0-17.0) (13.0-17.0) Hematocrit 41.6 % 40.1 % (39.0-51.0) (39.0-51.0) Mean Corpuscular Volume 82.1 FL 82.7 FL (80.0-100.0) (80.0-100.0) Mean Corpuscular Hemoglobin 27.1 PG 27.3 PG (27.0-34.0) (27.0-34.0) Mean Corpuscular Hemoglobin 33.0 % 33.0 % Concent (32.0-36.0) (32.0-36.0) Red Cell Distribution Width 14.8 % 15.3 % (11.6-17.2) (11.6-17.2) Platelet Count 254 TH/MM3 244 TH/MM3 (150-450) (150-450) Mean Platelet Volume 9.3 FL 9.8 FL (7.0-11.0) (7.0-11.0) Neutrophils (%) (Auto) 89.0 % 85.2 % (16.0-70.0) (16.0-70.0) Lymphocytes (%) (Auto) 5.3 % 7.8 % (9.0-44.0) (9.0-44.0) Monocytes (%) (Auto) 5.2 % (0.0-8.0) 6.5 % (0.0-8.0) Eosinophils (%) (Auto) 0.2 % (0.0-4.0) 0.2 % (0.0-4.0) Basophils (%) (Auto) 0.3 % (0.0-2.0) 0.3 % (0.0-2.0) Neutrophils # (Auto) 17.4 TH/MM3 13.6 TH/MM3 (1.8-7.7) (1.8-7.7) Lymphocytes # (Auto) 1.0 TH/MM3 1.2 TH/MM3 (1.0-4.8) (1.0-4.8) Monocytes # (Auto) 1.0 TH/MM3 1.0 TH/MM3 (0-0.9) (0-0.9) Eosinophils # (Auto) 0.0 TH/MM3 0.0 TH/MM3 (0-0.4) (0-0.4) Basophils # (Auto) 0.1 TH/MM3 0.0 TH/MM3 (0-0.2) (0-0.2) CBC Comment AUTO DIFF AUTO DIFF Differential Comment AUTO DIFF FINAL DIFF CONFIRMED MANUAL Platelet Estimate NORMAL NORMAL (NORMAL) (NORMAL) Platelet Morphology Comment NORMAL NORMAL (NORMAL) (NORMAL) Red Cell Morphology Comment NORMAL NORMAL (NORMAL) (NORMAL) Sodium Level 138 MEQ/L 142 MEQ/L (136-145) (136-145) Potassium Level 3.2 MEQ/L 3.6 MEQ/L 3.3 MEQ/L (3.5-5.1) (3.5-5.1) (3.5-5.1) Chloride Level 94 MEQ/L 98 MEQ/L (98-107) (98-107) Carbon Dioxide Level 35.8 MEQ/L 34.1 MEQ/L (21.0-32.0) (21.0-32.0) Anion Gap 8 MEQ/L (5-15) 10 MEQ/L (5-15) Blood Urea Nitrogen 34 MG/DL (7-18) 42 MG/DL (7-18) Creatinine 0.70 MG/DL 0.61 MG/DL (0.60-1.30) (0.60-1.30) Estimat Glomerular Filtration 119 ML/MIN 140 ML/MIN Rate (>89) (>89) Random Glucose 263 MG/DL 251 MG/DL (74-106) (74-106) Calcium Level 9.1 MG/DL 9.0 MG/DL (8.5-10.1) (8.5-10.1) Phosphorus Level 2.7 MG/DL 3.4 MG/DL (2.5-4.9) (2.5-4.9) Magnesium Level 2.2 MG/DL 2.4 MG/DL (1.5-2.5) (1.5-2.5) Total Bilirubin 0.9 MG/DL (0.2-1.0) Aspartate Amino Transf 20 U/L (15-37) (AST/SGOT) Alanine Aminotransferase 58 U/L (12-78) (ALT/SGPT) Alkaline Phosphatase 77 U/L (45-117) Total Protein 7.0 GM/DL (6.4-8.2) Albumin 3.0 GM/DL (3.4-5.0) Blood Gas Puncture Site RT RADIAL Blood Gas Patient Temperature 98.6 Blood Gas HCO3 34 mmol/L (22-26) Blood Gas Base Excess 9.8 mmol/L (-2-2) Blood Gas Oxygen Saturation 95 % (90-100) Arterial Blood pH 7.51 (7.380-7.420) Arterial Blood Partial 43 mmHg (38-42) Pressure CO2 Arterial Blood Partial 103 mmHg Pressure O2 (61-120) Arterial Blood Oxygen Content 19.6 Vol % (12.0-20.0) Arterial Blood 1.3 % (0-4) Carboxyhemoglobin Arterial Blood Methemoglobin 1.2 % (0-2) Blood Gas Hemoglobin 14.6 G/DL (12.0-16.0) Blood Gas Ventilator Setting Blood Gas Inspired Oxygen 50 % Differential Total Cells 100 Counted Neutrophils % (Manual) 86 % (16-70) Band Neutrophils % 1 % (0-6) Lymphocytes % 8 % (9-44) Monocytes % 4 % (0-8) Neutrophils # (Manual) 14.0 TH/MM3 (1.8-7.7) Myelocytes 1 % (0-0) Test 04/17/16 04/18/16 13:50 03:50 Potassium Level 4.0 MEQ/L 3.2 MEQ/L (3.5-5.1) (3.5-5.1) White Blood Count 15.9 TH/MM3 (4.0-11.0) Red Blood Count 4.76 MIL/MM3 (4.50-5.90) Hemoglobin 12.7 GM/DL (13.0-17.0) Hematocrit 40.1 % (39.0-51.0) Mean Corpuscular Volume 84.3 FL (80.0-100.0) Mean Corpuscular Hemoglobin 26.7 PG (27.0-34.0) Mean Corpuscular Hemoglobin 31.7 % Concent (32.0-36.0) Red Cell Distribution Width 15.1 % (11.6-17.2) Platelet Count 204 TH/MM3 (150-450) Mean Platelet Volume 9.6 FL (7.0-11.0) Neutrophils (%) (Auto) 79.1 % (16.0-70.0) Lymphocytes (%) (Auto) 13.2 % (9.0-44.0) Monocytes (%) (Auto) 6.3 % (0.0-8.0) Eosinophils (%) (Auto) 1.2 % (0.0-4.0) Basophils (%) (Auto) 0.2 % (0.0-2.0) Neutrophils # (Auto) 12.6 TH/MM3 (1.8-7.7) Lymphocytes # (Auto) 2.1 TH/MM3 (1.0-4.8) Monocytes # (Auto) 1.0 TH/MM3 (0-0.9) Eosinophils # (Auto) 0.2 TH/MM3 (0-0.4) Basophils # (Auto) 0.0 TH/MM3 (0-0.2) CBC Comment DIFF FINAL Differential Comment Sodium Level 144 MEQ/L (136-145) Chloride Level 100 MEQ/L (98-107) Carbon Dioxide Level 34.6 MEQ/L (21.0-32.0) Anion Gap 9 MEQ/L (5-15) Blood Urea Nitrogen 48 MG/DL (7-18) Creatinine 0.56 MG/DL (0.60-1.30) Estimat Glomerular Filtration 154 ML/MIN Rate (>89) Random Glucose 151 MG/DL (74-106) Calcium Level 9.1 MG/DL (8.5-10.1) (Irais Josue) Result Diagram: 04/18/16 0350 04/18/16 0350 Imaging Last Impressions Chest X-Ray 04/18/16 0000 Signed Impressions: Service Date/Time: Monday, April 18, 2016 09:59 - CONCLUSION: 1. Support equipment in good position. 2. Small left basilar effusion and consolidative changes in the left lower lobe and perihilar region on the right. Dc Barton MD Abdomen X-Ray 03/31/16 0000 Signed Impressions: Service Date/Time: Thursday, March 31, 2016 09:58 - CONCLUSION: Benign abdomen. Rodrigo Martinez MD Chest CT 03/28/16 0836 Signed Impressions: Service Date/Time: Monday, March 28, 2016 09:57 - CONCLUSION: Development areas of air bronchograms and consolidation more prominent in the right and left posterior basilar segments of the lower lobes. ET tube above the chanelle. Bernard Hartman MD CT Angiography 03/24/16 1121 Signed Impressions: Service Date/Time: Thursday, March 24, 2016 12:47 - CONCLUSION: 1. There is respiratory motion artifact but no PE is identified through most of the segmental level pulmonary arteries. 2. Mildly enlarged main pulmonary artery may indicate pulmonary arterial hypertension. 3. 11 mm left lower lobe noncalcified pulmonary nodule. Suggest correlation with any prior imaging studies that could confirm longer-term stability. If none are available consider short-term followup noncontrast chest CT in approximately 3 months. Ubaldo Rodas MD Procedures 03/26intubated 03/26 left IJ central line 04/02right IJ central line . (Irais Josue) Assessment and Plan Disease Oriented Problem List: (1) Acute respiratory failure with hypoxia (2) Staphylococcus aureus pneumonia (3) Pulmonary edema (4) Hypoxia (5) JACOB (obstructive sleep apnea) (6) Pulmonary nodule, left (7) Obesity hypoventilation syndrome (8) Morbid obesity with BMI of 50.0-59.9, adult (9) Diabetes mellitus type 2 in obese Symptom Scale: (1) Anxiety (2) Dyspnea Pertinent Non-Medical Issues Psychosocial:Patient is , shares an apartment locally with his brother. Apparently has 2 other siblings as well as 2 adult children who live in the [place] area. Has designated his brother Farhat as healthcare surrogate. 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 Spiritual: Legal:Patient is not able to participate in decision-making due to clinical condition. Has completed designation naming his brother Farhat as [facility]. Ethical issues impacting care: Important Contacts brother Farhat [facility] [phone] ([facility]) Brother Gagandeep [facility] [phone] . Prognosis This patient was admitted for further evaluation of obesity hypoventilation syndrome; absolutely developed acute respiratory failure requiring mechanical ventilation. Has continued to require high levels of ventilator support, though other organ functions remain preserved. Possible he can recover from this however currently remains in critical condition, prognosis guarded. . Code Status: Full Code (per attending documentation ) Plan * Legal decision maker: Patiently currently unable to participate in goals / decision-making due to clinical condition. It is not clear if he will regain decision-making capacity. He has designated his brother Farhat as healthcare surrogate. * Goals: Recent meeting with 2 brothers and a sister indicate that Goals are aggressive, family seems to good understanding of current conditions and prognosis. 04/11/16: Farhat says he has spoken with the patient's two 20- something daughters in [place] and they want to continue aggressive care and full CODE STATUS. Farhat says he did discuss with them the poor prognosis. I encouraged him to encouraged them to come down here to see their father, and let him know that we would be happy to discuss this further with them also. He says he, the healthcare surrogate, would lean toward de-escalation of care but he wants to honor the daughter's wishes. 04/16/16 --met with daughters as well as brother. Family seems to have overall good understanding. They remain cautiously optimistic. Goals remain aggressive. Open to ongoing updates and revisiting goals of care as clinical condition evolves. 04/18/16patient appears comfortable at time of my exam. Previously expressed goals have been aggressive. Call to brother Farhat [facility], voicemail left. * CODE STATUS: Full code. * SYMPTOMS: --Dyspnea-emergently intubated, has remained on high ventilator settings as well as prone bed-- prone bed d/c. Currently vent asynchrony controlled with multiple sedatives (fentanyl, Versed ) --Anxiety-risk for related to prolonged intubation, hospitalization, underlying respiratory issues; currently appears comfortable on multiple sedatives (fentanyl, Versed) starting to become more alert/responsive will need ongoing assessments. * Palliative care will continue to follow during hospital course as condition evolves, to assist patient/decision-maker with understanding of medical conditions, weighing benefits/burdens of treatment options, for clarification of goals of treatment. Additionally will assist with any symptoms of palliative concern (Irais Josue) Time Spent Total Floor Time (mins): 20 (Irais Josue) Attestation To help prompt me to consider important information that might be impacting today's encounter and assessment, information from prior notes written by myself or my colleagues may have been "brought forward" into today's note. My signature on this note, however, is an attestation that I personally performed the exam, history, and/or decision-making noted today, and, unless otherwise indicated, the interactions with patient, family, and staff as well as the review of records all occurred today. I also attest that the listed assessment and stated plan reflect my best clinical judgment today based on the combination of historical information, prior notes, and today's exam/ interactions. When time spent is documented, it refers only to time spent today by the signer, or if indicated, combined time spent today by collaborating physician/nurse practitioner. (Irais Josue) Collaborating MD Comments Chart reviewed. Case discussed with palliative care [employer]. Above NANCY note reviewed and I concur. . (Jose Holguin MD) Irais Josue Apr 18, 2016 15:44 Jose Holguin MD Apr 22, 2016 12:22
[2016-04-18] MEDS: EPOPROSTENOL NEB SOLUTION 20 NG/KG/MIN 100 ML NEB SCH ×4 (17:09→22:16)
[2016-04-18] MEDS: PANTOPRAZOLE SODIUM 40 MG VIAL IV PUSH SCH (18:07)
--- NOTE | 2016-04-18 19:14 | HHI.PR ---
Subjective Remarks ON THE VENT SEDATED FIO2 AT 60% Objective Vital Signs Date Time Temp Pulse Resp B/P Pulse Ox O2 Delivery O2 Flow Rate FiO2 04/18/16 18:09 91 04/18/16 16:35 50 04/18/16 16:35 99.5 83 15 120/65 91 04/18/16 16:35 83 04/18/16 16:19 92 50 04/18/16 14:00 83 04/18/16 12:00 99.5 89 15 117/64 91 04/18/16 12:00 50 04/18/16 12:00 89 04/18/16 11:47 94 50 04/18/16 10:00 93 04/18/16 08:21 91 50 04/18/16 08:00 99.1 90 15 110/65 91 04/18/16 08:00 50 04/18/16 08:00 90 04/18/16 06:00 85 04/18/16 04:01 92 60 04/18/16 04:00 80 04/18/16 04:00 60 04/18/16 04:00 98.4 86 15 112/61 96 04/18/16 02:00 77 04/18/16 01:10 92 60 04/18/16 00:00 60 04/18/16 00:00 75 04/18/16 00:00 98.4 75 15 115/70 92 04/17/16 22:30 94 60 04/17/16 22:00 80 04/17/16 20:00 60 04/17/16 20:00 99.3 81 15 117/66 94 04/17/16 20:00 79 04/17/16 19:35 94 60 I/O 04/17/16 04/17/16 04/17/16 04/18/16 04/18/16 04/18/16 07:00 15:00 23:00 07:00 15:00 23:00 Intake Total 854 ml 1123 ml 838 ml 876 ml 1317 ml Output Total 750 ml 900 ml 1050 ml 950 ml 1400 ml Balance 104 ml 223 ml -212 ml -74 ml -83 ml Intake Oral 0 ml IV Total 374 ml 396 ml 377 ml 357 ml 728 ml Tube Feeding 280 ml 527 ml 341 ml 319 ml 389 ml Other 200 ml 200 ml 120 ml 200 ml 200 ml Output Urine Total 700 ml 900 ml 900 ml 850 ml 1350 ml Stool Total 50 ml 150 ml 100 ml 50 ml Result Diagram: 04/18/1634904/18/16 035 Objective Remarks GENERAL: SKIN: Warm and dry. HEAD: Atraumatic. Normocephalic. EYES: Pupils equal and round. No scleral icterus. No injection or drainage. ENT: No nasal bleeding or discharge. Mucous membranes pink and moist. NECK: Trachea midline. No JVD. CARDIOVASCULAR: Regular rate and rhythm. RESPIRATORY: No accessory muscle use. Clear to auscultation. Breath sounds equal bilaterally. GASTROINTESTINAL: Abdomen soft, non-tender, nondistended. Hepatic and splenic margins not palpable. MUSCULOSKELETAL: Extremities without clubbing, cyanosis, or edema. No obvious deformities. NEUROLOGICAL: Awake and alert. No obvious cranial nerve deficits. Motor grossly within normal limits. Five out of 5 muscle strength in the arms and legs. Normal speech. PSYCHIATRIC: Appropriate mood and affect; insight and judgment normal. Assessment and Plan Assessment and Plan RESPIRATORY FAILURE SEPSIS ARDS JACOB/CSA PLAN VENT SUPPORT PULM TOILET WEAN TOLERATED. Orlando Perry MD Apr 18, 2016 19:14
[2016-04-18] MEDS: ACETAMINOPHEN 650 MG/20.3 ML UDC PO PRN (20:22)
[2016-04-18] MEDS: fentaNYL 2,500 MCG/NS 250 ML IV SCH (21:32)
[2016-04-19] VITALS (18 sets, daily range): BP systolic 107–125; BP diastolic 62–73; PULSE 78–94; RESP 15; TEMP 99.9–101.7; O2SAT 89–95
[2016-04-19] MEDS: INSULIN NovoLIN REGULAR SUPPLEMENTAL SCALE SQ SCH ×4 (00:01→18:07)
[2016-04-19] MEDS: FUROSEMIDE 20 MG/2 ML VIAL IV PUSH SCH ×3 (00:02→18:06)
--- NOTE | 2016-04-19 04:45 | RADRPT ---
EXAM DATE/TIME: 04/19/2016 03:20 [place] COMPARISON: CHEST SINGLE AP, April 18, 2016, 9:59. INDICATIONS : Shortness of breath MEDICAL HISTORY : Diabetes mellitus type II. SURGICAL HISTORY : None. ENCOUNTER: Subsequent ACUITY: 1 week PAIN SCORE: Non-responsive. LOCATION: Bilateral chest FINDINGS: The cardiac silhouette is enlarged in transverse diameter. Support lines and tubes are in satisfactor y position. There are findings of congestive heart failure with interstitial and alveolar opacity eufemia aterally. A small left sided effusion is present. CONCLUSION: 1. Cardiomegaly and findings of congestive heart failure. There has been no significant change when c ompared to the prior exam. Kyaw Rojo MD on April 19, 2016 at 4:43 Board Certified Radiologist. This report was verified electronically.
[2016-04-19 05:26] LABS: AUTOMATED NEUTROPHIL # 11.3 TH/MM3 (1.8-7.7); BASOPHIL # 0.1 TH/MM3 (0-0.2); BASOPHIL % 0.3 % (0.0-2.0); EOSINOPHIL # 0.1 TH/MM3 (0-0.4); EOSINOPHIL % 0.5 % (0.0-4.0); HEMO FLAGS DIFF FINAL; LYMPH % 12.9 % (9.0-44.0); LYMPHOCYTE # 1.9 TH/MM3 (1.0-4.8); MEAN CELL VOLUME 83.4 FL (80.0-100.0); MEAN CORPUSCULAR HEMOGLOBIN 27.5 PG (27.0-34.0); MONO % 8.1 % (0.0-8.0); NEUT % 78.2 % (16.0-70.0); PLATELET COUNT 184 TH/MM3 (150-450); RED CELL DISTRIBUTION WIDTH 15.1 % (11.6-17.2); WHITE BLOOD COUNT 14.5 TH/MM3 (4.0-11.0)
[2016-04-19] MEDS: MIDAZOLAM 100 MG/ML INJ 100 ML IV SCH ×2 (05:41→14:16)
[2016-04-19] MEDS: fentaNYL 2,500 MCG/NS 250 ML IV SCH ×2 (05:41→14:15)
[2016-04-19] MEDS: METOCLOPRAMIDE HCL 10 MG/2 ML VIAL IV PUSH SCH ×3 (05:42→21:01)
[2016-04-19] MEDS: EPOPROSTENOL NEB SOLUTION 20 NG/KG/MIN 100 ML NEB SCH ×4 (05:42→13:12)
[2016-04-19] MEDS: ENOXAPARIN SODIUM 40 MG/0.4 ML SYRINGE SQ SCH ×2 (05:42→18:07)
[2016-04-19 05:57] LABS: BICARBONATE 34.4 MEQ/L (21.0-32.0); POTASSIUM 3.5 MEQ/L (3.5-5.1)
--- NOTE | 2016-04-19 07:54 | HHI.PR ---
Subjective Remarks ON THE VENT SEDATED FIO2 AT 60% Objective Vital Signs Date Time Temp Pulse Resp B/P Pulse Ox O2 Delivery O2 Flow Rate FiO2 04/19/16 06:00 81 04/19/16 04:52 92 50 04/19/16 04:00 100.0 86 15 107/71 89 04/19/16 04:00 50 04/19/16 04:00 86 04/19/16 02:00 89 04/19/16 01:38 93 50 04/19/16 00:00 101.7 85 15 108/66 95 04/19/16 00:00 50 04/19/16 00:00 85 04/18/16 22:17 92 50 04/18/16 22:00 92 04/18/16 21:22 15 04/18/16 20:16 90 50 04/18/16 20:00 50 04/18/16 20:00 101.5 86 15 107/65 90 04/18/16 20:00 86 04/18/16 18:09 91 04/18/16 16:35 50 04/18/16 16:35 99.5 83 15 120/65 91 04/18/16 16:35 83 04/18/16 16:19 92 50 04/18/16 14:00 83 04/18/16 12:00 99.5 89 15 117/64 91 04/18/16 12:00 50 04/18/16 12:00 89 04/18/16 11:47 94 50 04/18/16 10:00 93 04/18/16 08:21 91 50 04/18/16 08:00 99.1 90 15 110/65 91 04/18/16 08:00 50 04/18/16 08:00 90 I/O 04/18/16 04/18/16 04/18/16 04/19/16 04/19/16 04/19/16 07:00 15:00 23:00 07:00 15:00 23:00 Intake Total 876 ml 1317 ml 355 ml 665 ml Output Total 950 ml 1400 ml 1150 ml 750 ml Balance -74 ml -83 ml -795 ml -85 ml Intake Oral 0 ml IV Total 357 ml 728 ml 202 ml 292 ml Tube Feeding 319 ml 389 ml 123 ml 343 ml Other 200 ml 200 ml 30 ml 30 ml Output Urine Total 850 ml 1350 ml 1150 ml 750 ml Stool Total 100 ml 50 ml Result Diagram: 04/19/1644904/19/16449 Objective Remarks GENERAL: SKIN: Warm and dry. HEAD: Atraumatic. Normocephalic. EYES: Pupils equal and round. No scleral icterus. No injection or drainage. ENT: No nasal bleeding or discharge. Mucous membranes pink and moist. NECK: Trachea midline. No JVD. CARDIOVASCULAR: Regular rate and rhythm. RESPIRATORY: No accessory muscle use. Clear to auscultation. Breath sounds equal bilaterally. GASTROINTESTINAL: Abdomen soft, non-tender, nondistended. Hepatic and splenic margins not palpable. MUSCULOSKELETAL: Extremities without clubbing, cyanosis, or edema. No obvious deformities. NEUROLOGICAL: Awake and alert. No obvious cranial nerve deficits. Motor grossly within normal limits. Five out of 5 muscle strength in the arms and legs. Normal speech. PSYCHIATRIC: Appropriate mood and affect; insight and judgment normal. Assessment and Plan Assessment and Plan RESPIRATORY FAILURE SEPSIS ARDS JACOB/CSA PLAN VENT SUPPORT PULM TOILET WEAN TOLERATED. Orlando Perry MD Apr 19, 2016 07:54
[2016-04-19] MEDS: SENNOSIDES SYRUP 8.8 MG/5 ML CUP PO/TUBE SCH ×2 (08:23→20:58)
[2016-04-19] MEDS: methylPREDNISolone SOD SUCC 40 MG/1 ML VIAL IV PUSH SCH (08:24)
[2016-04-19] MEDS: DOCUSATE SODIUM 100 MG/10 ML UDC PO SCH ×2 (08:24→20:58)
[2016-04-19] MEDS: LACTOBACILLUS ACIDOPHILUS TAB PO SCH ×3 (08:24→18:06)
[2016-04-19] MEDS: SODIUM CHLORIDE 0.9% FLUSH 5 ML FLUSH IVF SCH (08:25)
[2016-04-19] MEDS: ARTIFICIAL TEARS OPTH OINT 3.5 APPLIC/3.5 GM TUBO EACH EYE SCH ×2 (08:25→20:58)
[2016-04-19] MEDS: BETAMETHASONE/CLOTRIMAZOLE CREAM 15 GM TOPICAL SCH ×2 (08:25→20:58)
[2016-04-19] MEDS: INSULIN DETEMIR 100 UNITS/ML VIAL SQ SCH ×2 (08:25→20:58)
[2016-04-19] MEDS: CHLORHEXIDINE 0.12% (ORAL KIT) 15 ML CUP MT SCH ×2 (08:26→20:58)
[2016-04-19] MEDS: BENEPROTEIN POWDER 1 PACK G-TUBE SCH ×3 (09:00→18:00)
[2016-04-19 11:58] LABS: BLOOD, URINE NEG (NEG); COMMENT (UR) CATH-CULT NOT IND; CULTURE IF INDICATED CATH CULTURE NOT IND; GLUCOSE,URINE NEG (NEG); KETONE, URINE NEG (NEG); MUCUS URINE FEW /lpf (OCC); NITRITE,URINE NEG (NEG); PH, URINE 7.5 (5.0-8.5); URINE COLOR YELLOW (YELLW/STRAW)
--- NOTE | 2016-04-19 12:14 | HHI.IDPN ---
Subjective Subjective Remarks Notes reviewed Febrile since last night On PRVC, FiO2 at 50% Not much secretions On multiple sedation Tolerating TF BP good not on pressors Good UO Antibiotics None Lines TLC - 04/02 Past Medical History Reviewed Allergies: Coded Allergies: Penicillin (Verified Allergy, Severe, Swelling, 03/24/16) Tetanus Toxoid (Verified Allergy, Unknown, Swelling, 03/24/16) Objective . Vital Signs Date Time Temp Pulse Resp B/P Pulse Ox O2 Delivery O2 Flow Rate FiO2 04/19/16 11:22 91 50 04/19/16 08:03 91 50 04/19/16 08:00 100.4 80 15 107/62 92 04/19/16 08:00 80 04/19/16 08:00 50 04/19/16 06:00 81 04/19/16 04:52 92 50 04/19/16 04:00 100.0 86 15 107/71 89 04/19/16 04:00 50 04/19/16 04:00 86 04/19/16 02:00 89 04/19/16 01:38 93 50 04/19/16 00:00 101.7 85 15 108/66 95 04/19/16 00:00 50 04/19/16 00:00 85 04/18/16 22:17 92 50 04/18/16 22:00 92 04/18/16 21:22 15 04/18/16 20:16 90 50 04/18/16 20:00 50 04/18/16 20:00 101.5 86 15 107/65 90 04/18/16 20:00 86 04/18/16 18:09 91 04/18/16 16:35 50 04/18/16 16:35 99.5 83 15 120/65 91 04/18/16 16:35 83 04/18/16 16:19 92 50 04/18/16 14:00 83 04/18/16 04/18/16 04/19/16 15:00 23:00 07:00 Intake Total 1317 ml 355 ml 665 ml Output Total 1400 ml 1150 ml 750 ml Balance -83 ml -795 ml -85 ml Intake Oral 0 ml IV Total 728 ml 202 ml 292 ml Tube Feeding 389 ml 123 ml 343 ml Other 200 ml 30 ml 30 ml Output Urine Total 1350 ml 1150 ml 750 ml Stool Total 50 ml . Laboratory Tests Test 04/18/16 04/19/16 03:50 04:50 White Blood Count 15.9 TH/MM3 14.5 TH/MM3 Red Blood Count 4.76 MIL/MM3 4.80 MIL/MM3 Hemoglobin 12.7 GM/DL 13.2 GM/DL Hematocrit 40.1 % 40.0 % Mean Corpuscular Volume 84.3 FL 83.4 FL Mean Corpuscular Hemoglobin 26.7 PG 27.5 PG Mean Corpuscular Hemoglobin 31.7 % 33.0 % Concent Red Cell Distribution Width 15.1 % 15.1 % Platelet Count 204 TH/MM3 184 TH/MM3 Mean Platelet Volume 9.6 FL 9.5 FL Neutrophils (%) (Auto) 79.1 % 78.2 % Lymphocytes (%) (Auto) 13.2 % 12.9 % Monocytes (%) (Auto) 6.3 % 8.1 % Eosinophils (%) (Auto) 1.2 % 0.5 % Basophils (%) (Auto) 0.2 % 0.3 % Neutrophils # (Auto) 12.6 TH/MM3 11.3 TH/MM3 Lymphocytes # (Auto) 2.1 TH/MM3 1.9 TH/MM3 Monocytes # (Auto) 1.0 TH/MM3 1.2 TH/MM3 Eosinophils # (Auto) 0.2 TH/MM3 0.1 TH/MM3 Basophils # (Auto) 0.0 TH/MM3 0.1 TH/MM3 CBC Comment DIFF FINAL DIFF FINAL Differential Comment Laboratory Tests Test 04/17/16 04/18/16 04/19/16 13:50 03:50 04:50 Potassium Level 4.0 MEQ/L 3.2 MEQ/L 3.5 MEQ/L Sodium Level 144 MEQ/L 143 MEQ/L Chloride Level 100 MEQ/L 101 MEQ/L Carbon Dioxide Level 34.6 MEQ/L 34.4 MEQ/L Anion Gap 9 MEQ/L 8 MEQ/L Blood Urea Nitrogen 48 MG/DL 45 MG/DL Creatinine 0.56 MG/DL 0.67 MG/DL Estimat Glomerular Filtration 154 ML/MIN 126 ML/MIN Rate Random Glucose 151 MG/DL 188 MG/DL Calcium Level 9.1 MG/DL 8.9 MG/DL Imaging Chest X-Ray 04/19/16 0000 Signed Impressions: Service Date/Time: April 03:20 - CONCLUSION: 1. Cardiomegaly and findings of congestive heart failure. There has been no significant change when compared to the prior exam. Kyaw Rojo MD Chest X-Ray 04/18/16 0000 Signed Impressions: Service Date/Time: Monday, April 18, 2016 09:59 - CONCLUSION: 1. Support equipment in good position. 2. Small left basilar effusion and consolidative changes in the left lower lobe and perihilar region on the right. Dc Barton MD Chest X-Ray 04/16/16 0600 Signed Impressions: Service Date/Time: Saturday, April 16, 2016 03:58 - CONCLUSION: 1. Cardiomegaly. Bilateral lower lobe atelectasis versus pneumonia. There has been no significant change when compared to the prior exam. Kyaw Rojo MD Abdomen X-Ray 03/31/16 0000 Signed Impressions: Service Date/Time: Thursday, March 31, 2016 09:58 - CONCLUSION: Benign abdomen. Rodrigo Martinez MD Chest CT 03/28/16 0836 Signed Impressions: Service Date/Time: Monday, March 28, 2016 09:57 - CONCLUSION: Development areas of air bronchograms and consolidation more prominent in the right and left posterior basilar segments of the lower lobes. ET tube above the chanelle. Bernard Hartman MD CT Angiography 03/24/16 1121 Signed Impressions: Service Date/Time: Thursday, March 24, 2016 12:47 - CONCLUSION: 1. There is respiratory motion artifact but no PE is identified through most of the segmental level pulmonary arteries. 2. Mildly enlarged main pulmonary artery may indicate pulmonary arterial hypertension. 3. 11 mm left lower lobe noncalcified pulmonary nodule. Suggest correlation with any prior imaging studies that could confirm longer-term stability. If none are available consider short-term followup noncontrast chest CT in approximately 3 months. Ubaldo Rodas MD Chest X-Ray 04/12/16 0600 Signed Impressions: Service Date/Time: April 04:14 - CONCLUSION: Worsening appearance of the chest. Henrry Andrea MD Chest X-Ray 04/11/16 0000 Signed Impressions: Service Date/Time: Monday, April 11, 2016 04:09 - CONCLUSION: No significant change has occurred. Henrry Andrea MD Chest X-Ray 04/09/16899 Signed Impressions: Service Date/Time: Saturday, April 09, 2016 09:12 - CONCLUSION: 1. Diffuse alveolar consolidation of the left lung and right upper lung field consistent with pneumonia and/or asymmetric pulmonary edema. Clinical correlation is recommended. 2. Endotracheal tube has its tip 1 cm above the chanelle. This could be pulled back 2 cm for more optimal position. Farhat Montes MD Chest X-Ray 04/05/16599 Signed Impressions: Service Date/Time: April 03:25 - CONCLUSION: 1. Improved basilar consolidation. Residual versus developing right midlung consolidation. 2. Small bilateral pleural effusions are suspected. 3. No change cardiomegaly or lines/tubes. Ubaldo Ortiz MD Chest X-Ray 04/04/16599 Signed Impressions: Service Date/Time: Monday, April 04, 2016 04:44 - CONCLUSION: Worsening bilateral airspace opacities, especially left perihilar. Ubaldo Ortiz MD Chest X-Ray 04/04/16599 Signed Impressions: Service Date/Time: Monday, April 04, 2016 04:44 - CONCLUSION: Worsening bilateral airspace opacities, especially left perihilar. Ubaldo Ortiz MD Chest X-Ray 04/03/16599 Signed Impressions: Service Date/Time: Sunday, April 03, 2016 00:16 - CONCLUSION: Potential developing pneumonia in the right upper lobe. Bibasilar atelectasis modestly worse in the interim. Ubaldo Ortiz MD Chest X-Ray 04/03/16599 Signed Impressions: Service Date/Time: Sunday, April 03, 2016 00:16 - CONCLUSION: Potential developing pneumonia in the right upper lobe. Bibasilar atelectasis modestly worse in the interim. Ubaldo Ortiz MD Chest X-Ray 04/02/16924 Signed Impressions: Service Date/Time: Saturday, April 02, 2016 09:22 - CONCLUSION: Place a right jugular catheter terminates superior vena cava with no pneumothorax. Bernard Hartman MD Physical Exam GENERAL: Morbidly obese, sedated, on the vent, NAD SKIN: Cool skin, no cyanosis. No rash HEENT: No icterus, ET in place CHEST: Coarse BS bilaterally, decreased at bases CARDIAC: regular, no murmur ABDOMEN: soft, obese, (+) BS : Becker in place, urine looks clear MUSCULOSKELETAL: Extremities without clubbing, cyanosis. Has improving pedal edema and edema hands NEUROLOGICAL: Sedated on the vent. PSYCH: Unable to assess LINE: No evidence of infection Assessment & Plan Remarks IMPRESSION Leukocytosis, persistent, stable - has been on adequate Abx for pathogens isolated Pneumonia, C/S MSSA - Last CXR stable - S/P RX JACOB Respiratory failure, improving O2 requirement - has extensive infiltrates Morbid obesity Allergy to PCN, swelling Fevers, recurrent RECOMMENDATION Monitor progress Repeat C/S: BC, sputum UC Monitor temps Patient currently off Abx Give one dose of Vanco Follow C/S Elisha Painter MD Apr 19, 2016 12:14
--- NOTE | 2016-04-19 12:32 | HHI.HCPN ---
Reason for visit a. To assist with evaluation and management of symptoms including: Dyspnea, anxiety b. To assist medical decision maker(s) with: better understanding of current medical conditions; weighing benefits/burdens of medical treatment options; making medical treatment decisions. (Irais Josue) Subjective/Interval History No improvements and ventilator weaning thus far --PEEP 15, FiO2 50. O2 sats low 90s. + Flolan. Remains on fentanyl, Versed for sedation. PT seen in room, no visitors present, with Erin CRUZ. Minimally responsive to my exam. Slight eye fluttering to verbal/touch. Otherwise nonresponsive. No apparent distress. sedated on fentanyl 250 mics, Versed 10 mg hour. CXR today= Cardiomegaly and findings of congestive heart failure. There has been no significant change when compared to the prior exam. CBC and chemistry with no significant changes today. Has had fever, tmax 101.7. ID continues to follow, has added vancomycin. Repeat cultures ordered, pending. Following exam call to patient brother KIMBERLY Farhat. Spoke with him regarding current condition, clinical assessment, treatments in place. Review recent fevers, pending cultures. Explore Patient stable though still at risk for further complication. Goals remain aggressive, brother is appreciative of ongoing updates. . (Irais Josue) Advance Directives Living Will: Completed, but not made available Health Care Surrogate: Copy in medical record Durable Power of Environmental Service Aide: Completed, but not made available (Irais Josue) Advance Directive Specifics Date completed: 2016 Health Care Surrogate(s): Names brother Farhat Leger as [facility] (Irais Josue) Objective Vital Signs Date Time Temp Pulse Resp B/P Pulse Ox O2 Delivery O2 Flow Rate FiO2 04/19/16 11:22 91 50 04/19/16 08:03 91 50 04/19/16 08:00 100.4 80 15 107/62 92 04/19/16 08:00 80 04/19/16 08:00 50 04/19/16 06:00 81 04/19/16 04:52 92 50 04/19/16 04:00 100.0 86 15 107/71 89 04/19/16 04:00 50 04/19/16 04:00 86 04/19/16 02:00 89 04/19/16 01:38 93 50 04/19/16 00:00 101.7 85 15 108/66 95 04/19/16 00:00 50 04/19/16 00:00 85 04/18/16 22:17 92 50 04/18/16 22:00 92 04/18/16 21:22 15 04/18/16 20:16 90 50 04/18/16 20:00 50 04/18/16 20:00 101.5 86 15 107/65 90 04/18/16 20:00 86 04/18/16 18:09 91 04/18/16 16:35 50 04/18/16 16:35 99.5 83 15 120/65 91 04/18/16 16:35 83 04/18/16 16:19 92 50 04/18/16 14:00 83 Intake & Output 04/19/16 04/19/16 07:00 19:00 Intake Total 1020 ml Output Total 1900 ml Balance -880 ml IV Total 494 ml Tube Feeding 466 ml Other 60 ml Output Urine Total 1900 ml Physical Exam CONSTITUTIONAL/GENERAL: This is a morbidly obese, critically ill-appearing patient seen on specialty bed in ICU TUBES/LINES/DRAINS: ET tube, OG tube, central line, Becker catheter, rectal drain SKIN: No jaundice, rashes, or lesions.no wounds seen posteriorly. + generalized edema CARDIOVASCULAR: Regular rate and rhythm without murmurs.distant heart sounds. No JVD. Peripheral pulses symmetric. RESPIRATORY/CHEST: Symmetric, unlabored respirations via ET tube to mechanical vent. Decreased air movement throughout, clear, equal bilaterally.. GASTROINTESTINAL: Abdomen soft, obese. Unable to determine to tenderness. TF infusing via OG tube. +liq stool via rectal drain MUSCULOSKELETAL: Extremities without clubbing, cyanosis. Significant generalized edema NEUROLOGICAL: Sedated, minimally responsive to exam. Slight eye flutter to touch, verbal-- however no eye opening and tracking. Does not withdrawal to pain stimuli for me. PSYCHIATRIC: No obvious anxiety/depression--limited exam due to clinical condition . (Irais Josue) Diagnostic Tests Laboratory Laboratory Tests Test 04/16/16 04/17/16 04/17/16 04/18/16 16:00 06:00 13:50 03:50 Potassium Level 3.6 MEQ/L 3.3 MEQ/L 4.0 MEQ/L 3.2 MEQ/L (3.5-5.1) (3.5-5.1) (3.5-5.1) (3.5-5.1) White Blood Count 15.9 TH/MM3 15.9 TH/MM3 (4.0-11.0) (4.0-11.0) Red Blood Count 4.85 MIL/MM3 4.76 MIL/MM3 (4.50-5.90) (4.50-5.90) Hemoglobin 13.2 GM/DL 12.7 GM/DL (13.0-17.0) (13.0-17.0) Hematocrit 40.1 % 40.1 % (39.0-51.0) (39.0-51.0) Mean Corpuscular Volume 82.7 FL 84.3 FL (80.0-100.0) (80.0-100.0) Mean Corpuscular Hemoglobin 27.3 PG 26.7 PG (27.0-34.0) (27.0-34.0) Mean Corpuscular Hemoglobin 33.0 % 31.7 % Concent (32.0-36.0) (32.0-36.0) Red Cell Distribution Width 15.3 % 15.1 % (11.6-17.2) (11.6-17.2) Platelet Count 244 TH/MM3 204 TH/MM3 (150-450) (150-450) Mean Platelet Volume 9.8 FL 9.6 FL (7.0-11.0) (7.0-11.0) Neutrophils (%) (Auto) 85.2 % 79.1 % (16.0-70.0) (16.0-70.0) Lymphocytes (%) (Auto) 7.8 % 13.2 % (9.0-44.0) (9.0-44.0) Monocytes (%) (Auto) 6.5 % (0.0-8.0) 6.3 % (0.0-8.0) Eosinophils (%) (Auto) 0.2 % (0.0-4.0) 1.2 % (0.0-4.0) Basophils (%) (Auto) 0.3 % (0.0-2.0) 0.2 % (0.0-2.0) Neutrophils # (Auto) 13.6 TH/MM3 12.6 TH/MM3 (1.8-7.7) (1.8-7.7) Lymphocytes # (Auto) 1.2 TH/MM3 2.1 TH/MM3 (1.0-4.8) (1.0-4.8) Monocytes # (Auto) 1.0 TH/MM3 1.0 TH/MM3 (0-0.9) (0-0.9) Eosinophils # (Auto) 0.0 TH/MM3 0.2 TH/MM3 (0-0.4) (0-0.4) Basophils # (Auto) 0.0 TH/MM3 0.0 TH/MM3 (0-0.2) (0-0.2) CBC Comment AUTO DIFF DIFF FINAL Differential Total Cells 100 Counted Neutrophils % (Manual) 86 % (16-70) Band Neutrophils % 1 % (0-6) Lymphocytes % 8 % (9-44) Monocytes % 4 % (0-8) Neutrophils # (Manual) 14.0 TH/MM3 (1.8-7.7) Myelocytes 1 % (0-0) Differential Comment FINAL DIFF MANUAL Platelet Estimate NORMAL (NORMAL) Platelet Morphology Comment NORMAL (NORMAL) Red Cell Morphology Comment NORMAL (NORMAL) Sodium Level 142 MEQ/L 144 MEQ/L (136-145) (136-145) Chloride Level 98 MEQ/L 100 MEQ/L (98-107) (98-107) Carbon Dioxide Level 34.1 MEQ/L 34.6 MEQ/L (21.0-32.0) (21.0-32.0) Anion Gap 10 MEQ/L (5-15) 9 MEQ/L (5-15) Blood Urea Nitrogen 42 MG/DL (7-18) 48 MG/DL (7-18) Creatinine 0.61 MG/DL 0.56 MG/DL (0.60-1.30) (0.60-1.30) Estimat Glomerular Filtration 140 ML/MIN 154 ML/MIN Rate (>89) (>89) Random Glucose 251 MG/DL 151 MG/DL (74-106) (74-106) Calcium Level 9.0 MG/DL 9.1 MG/DL (8.5-10.1) (8.5-10.1) Phosphorus Level 3.4 MG/DL (2.5-4.9) Magnesium Level 2.4 MG/DL (1.5-2.5) Test 04/19/16 04/19/16 04:50 10:31 White Blood Count 14.5 TH/MM3 (4.0-11.0) Red Blood Count 4.80 MIL/MM3 (4.50-5.90) Hemoglobin 13.2 GM/DL (13.0-17.0) Hematocrit 40.0 % (39.0-51.0) Mean Corpuscular Volume 83.4 FL (80.0-100.0) Mean Corpuscular Hemoglobin 27.5 PG (27.0-34.0) Mean Corpuscular Hemoglobin 33.0 % Concent (32.0-36.0) Red Cell Distribution Width 15.1 % (11.6-17.2) Platelet Count 184 TH/MM3 (150-450) Mean Platelet Volume 9.5 FL (7.0-11.0) Neutrophils (%) (Auto) 78.2 % (16.0-70.0) Lymphocytes (%) (Auto) 12.9 % (9.0-44.0) Monocytes (%) (Auto) 8.1 % (0.0-8.0) Eosinophils (%) (Auto) 0.5 % (0.0-4.0) Basophils (%) (Auto) 0.3 % (0.0-2.0) Neutrophils # (Auto) 11.3 TH/MM3 (1.8-7.7) Lymphocytes # (Auto) 1.9 TH/MM3 (1.0-4.8) Monocytes # (Auto) 1.2 TH/MM3 (0-0.9) Eosinophils # (Auto) 0.1 TH/MM3 (0-0.4) Basophils # (Auto) 0.1 TH/MM3 (0-0.2) CBC Comment DIFF FINAL Differential Comment Sodium Level 143 MEQ/L (136-145) Potassium Level 3.5 MEQ/L (3.5-5.1) Chloride Level 101 MEQ/L (98-107) Carbon Dioxide Level 34.4 MEQ/L (21.0-32.0) Anion Gap 8 MEQ/L (5-15) Blood Urea Nitrogen 45 MG/DL (7-18) Creatinine 0.67 MG/DL (0.60-1.30) Estimat Glomerular Filtration 126 ML/MIN Rate (>89) Random Glucose 188 MG/DL (74-106) Calcium Level 8.9 MG/DL (8.5-10.1) Urine Color YELLOW (YELLW/STRAW) Urine Turbidity CLEAR (CLEAR) Urine pH 7.5 (5.0-8.5) Urine Specific [place] 1.018 (1.002-1.035) Urine Protein NEG mg/dL (NEG-TRACE) Urine Glucose (UA) NEG mg/dL (NEG) Urine Ketones NEG mg/dL (NEG) Urine Occult Blood NEG (NEG) Urine Nitrite NEG (NEG) Urine Bilirubin NEG (NEG) Urine Urobilinogen LESS THAN 2.0 MG/DL (LESS THAN 2.0) Urine Leukocyte Esterase NEG (NEG) Urine RBC LESS THAN 1 /hpf (0-3) Urine WBC 2 /hpf (0-5) Urine Mucus FEW /lpf (OCC) Microscopic Urinalysis Comment CATH-CULT NOT IND (Irais Josue) Result Diagram: 04/19/16 0450 04/19/16 0450 Imaging Last Impressions Chest X-Ray 04/19/16 0000 Signed Impressions: Service Date/Time: April 03:20 - CONCLUSION: 1. Cardiomegaly and findings of congestive heart failure. There has been no significant change when compared to the prior exam. Kyaw Rojo MD Abdomen X-Ray 03/31/16 0000 Signed Impressions: Service Date/Time: Thursday, March 31, 2016 09:58 - CONCLUSION: Benign abdomen. Rodrigo Martinez MD Chest CT 03/28/16 0836 Signed Impressions: Service Date/Time: Monday, March 28, 2016 09:57 - CONCLUSION: Development areas of air bronchograms and consolidation more prominent in the right and left posterior basilar segments of the lower lobes. ET tube above the chanelle. Bernard Hartman MD CT Angiography 03/24/16 1121 Signed Impressions: Service Date/Time: Thursday, March 24, 2016 12:47 - CONCLUSION: 1. There is respiratory motion artifact but no PE is identified through most of the segmental level pulmonary arteries. 2. Mildly enlarged main pulmonary artery may indicate pulmonary arterial hypertension. 3. 11 mm left lower lobe noncalcified pulmonary nodule. Suggest correlation with any prior imaging studies that could confirm longer-term stability. If none are available consider short-term followup noncontrast chest CT in approximately 3 months. Ubaldo Rodas MD Procedures 03/26intubated 03/26 left IJ central line 04/02right IJ central line . (Irais Josue) Assessment and Plan Disease Oriented Problem List: (1) Acute respiratory failure with hypoxia (2) Staphylococcus aureus pneumonia (3) Pulmonary edema (4) Hypoxia (5) JACOB (obstructive sleep apnea) (6) Pulmonary nodule, left (7) Obesity hypoventilation syndrome (8) Morbid obesity with BMI of 50.0-59.9, adult (9) Diabetes mellitus type 2 in obese Symptom Scale: (1) Anxiety (2) Dyspnea Pertinent Non-Medical Issues Psychosocial:Patient is , shares an apartment locally with his brother. Apparently has 2 other siblings as well as 2 adult children who live in the [place] area. Has designated his brother Farhat as healthcare surrogate. 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 Spiritual: Legal:Patient is not able to participate in decision-making due to clinical condition. Has completed designation naming his brother Farhat as [facility]. Ethical issues impacting care: Important Contacts brother Farhat Sibleyenan [phone] ([facility]) Brother Gagandeep Arsen [phone] . Prognosis This patient was admitted for further evaluation of obesity hypoventilation syndrome; absolutely developed acute respiratory failure requiring mechanical ventilation. Has continued to require high levels of ventilator support, though other organ functions remain preserved. Possible he can recover from this however currently remains in critical condition, prognosis guarded. . Code Status: Full Code (per attending documentation ) Plan * Legal decision maker: Patiently currently unable to participate in goals / decision-making due to clinical condition. It is not clear if he will regain decision-making capacity. He has designated his brother Farhat as healthcare surrogate. * Goals: Recent meeting with 2 brothers and a sister indicate that Goals are aggressive, family seems to good understanding of current conditions and prognosis. 04/11/16: Farhat says he has spoken with the patient's two 20- something daughters in [place] and they want to continue aggressive care and full CODE STATUS. Farhat says he did discuss with them the poor prognosis. I encouraged him to encouraged them to come down here to see their father, and let him know that we would be happy to discuss this further with them also. He says he, the healthcare surrogate, would lean toward de-escalation of care but he wants to honor the daughter's wishes. 04/16/16 --met with daughters as well as brother. Family seems to have overall good understanding. They remain cautiously optimistic. Goals remain aggressive. Open to ongoing updates and revisiting goals of care as clinical condition evolves. 04/18/16patient appears comfortable at time of my exam. Previously expressed goals have been aggressive. Call to brother Farhat [facility], voicemail left. 04/19/16: Spoke with brother/ [facility] Farhat, goals remain aggressive * CODE STATUS: Full code. * SYMPTOMS: --Dyspnea-emergently intubated, has remained on high ventilator settings as well as prone bed-- prone bed d/c. Currently vent asynchrony controlled with multiple sedatives (fentanyl, Versed ) --Anxiety-risk for related to prolonged intubation, hospitalization, underlying respiratory issues; currently appears comfortable on multiple sedatives (fentanyl, Versed) as becomes more alert/responsive will need ongoing assessments. * Palliative care will continue to follow during hospital course as condition evolves, to assist patient/decision-maker with understanding of medical conditions, weighing benefits/burdens of treatment options, for clarification of goals of treatment. Additionally will assist with any symptoms of palliative concern (Irais Josue) Time Spent Total Floor Time (mins): 20 (Irais Josue) Attestation To help prompt me to consider important information that might be impacting today's encounter and assessment, information from prior notes written by myself or my colleagues may have been "brought forward" into today's note. My signature on this note, however, is an attestation that I personally performed the exam, history, and/or decision-making noted today, and, unless otherwise indicated, the interactions with patient, family, and staff as well as the review of records all occurred today. I also attest that the listed assessment and stated plan reflect my best clinical judgment today based on the combination of historical information, prior notes, and today's exam/ interactions. When time spent is documented, it refers only to time spent today by the signer, or if indicated, combined time spent today by collaborating physician/nurse practitioner. (Irais Josue) Collaborating MD Comments Chart reviewed. Case discussed with palliative care TRAINING REPRESENTATIVE. Above TRAINING REPRESENTATIVE note reviewed and I concur. . (Jose Holguin MD) Irais Josue Apr 19, 2016 12:32 Jose Holguin MD Apr 22, 2016 12:27
[2016-04-19] MEDS ORDERED: VANCOMYCIN INJ 1,500 MG in SODIUM CHLORID 0.9% 500 ML INJ 500 ML IV ONE (13:00)
[2016-04-19 14:15] LABS: INDIRECT BILIRUBIN 0.5 MG/DL (0.0-0.8); TOTAL BILIRUBIN ADULT 0.9 MG/DL (0.2-1.0)
[2016-04-19] MEDS: EPOPROSTENOL NEB SOLUTION 10 NG/KG/MIN 100 ML NEB SCH ×2 (16:16)
--- NOTE | 2016-04-19 16:25 | HHI.CCPN ---
Subjective Remarks/Hospital Course Patient is a 50 years old obese male with past medical history significant for undiagnosed sleep apnea, super morbid obesity, type 2 diabetes was brought to the emergency department on 03/24/16 after feeling light headed and dizzy. On presentation here was found to be hypoxemic and ABG showed severe hypoxemia and hypercarbia. For a recent driving physical he was diagnosed with low oxygen saturations. Patient's oxygen saturation the ED was in the low 80s, which was confirmed on ABG with a oxygen saturation of 78% and PO2 of 46. CTA negative for PE. Patient was initiated on BiPAP therapy with consult to pulmonary Dr. Crane. His oxygenation improved but he continued to be hypercapnic. Today a.m. on nasal cannula his pH was 7.26 and PCO2 was increased at 99, patient was somnolent was placed back on BiPAP and repeat ABG at noon showed pH 7.26 PCO2 98 and pO2 70. This was on 16 BiPAP with FiO2 50%. Critical care was consulted. On my evaluation patient is somnolent but wakes up easily. I reduced the PEEP on BiPAP from 12-7 to facilitate better ventilation. A repeat ANG showed only minimal improvement, so decision made to intubate patient. Glidescope with #4 blade was used. Only propofol was used for induction. Initially I had a Grade 1-2 view, but I was unable to pass tube through the vocal cord to trachea in two attempts. Tube slipped out of Laryngeal opening both times. Dr Garrett intubated patient after NM paralysis with succinylcholine. Post intubation ABG showed improvement in hypercapnia and oxygenation. 03/27/16: Patient remains intubated heavily sedated with propofol and fentanyl. Remained severely hypoxemic on 100% FiO2, PEEP12, chest x-ray shows bibasilar infiltrates. Flagyl added. We'll give 1 dose of vancomycin-Adjust antibiotics according to cultures. Patient super morbid obesity may prevent Prone therapy 03/28: Remains hypoxic but ABG shows marginal improvement in oxygenation. WBC increasing 20.1 today. Start vancomycin scheduled. 03/29: Oxygenation is slightly improved. FiO2 reduced to 50% today. Chest x- ray remains unchanged. On sedation hold patient does wake up and follow commands. WBC count remains at 20 03/30 No acute events overnight. Sedated with Diprivan and Fentanyl. Had T: 100.1 at 4 am. WBC trending down 15.9 today from 20. 03/31 Patient remains sedated with Diprivan, Fentanyl and intubated. Tmax 100.1. Patient required increase O2 overnight now on ACV with PEEP: 12 and FIO2 70%. 04/01: Tmax 99.7. No bowel movement since admission. Patient has bowel sounds. Arousable on the ventilator. We'll attempt prone the patient paralyzed to increase oxygenation status. 04/02: MAXIMUM TEMPERATURE 100.9. Currently 97.7. 5 10 cc stools overnight. Placed on Roto prone yesterday. Saturations currently 94% on Flolan. Diuresed overnight. Creatinine still within normal limits. 04/03: Tmax 101. Currently 99.1. Positive BM. Did not tolerate not being unprone this AM. Saturations much improved prone. Tolerating tube feeding. Subjective 04/04: Tmax 100.8. Currently 98.8. +2 L past 24 hours. Attempt to on prone today. Positive BM. C. difficile negative. Remains paralyzed. 04/05: Remains sedated, orally intubated on neuromuscular blockade on mechanical ventilation. Remains on Rota prone bed. On insulin drip. 04/06: Remains sedated, orally intubated on neuromuscular blockade, on mechanical ventilation. Remains on Rota prone bed. Insulin drip continues. 04/07 Patient remains on Rotoprone bed sedated with Diprivan, Versed, Fentanyl in addition patient is on Nimbex. Afebrile. On Insulin drip 5u/hr. 04/08 Patient remains sedated and intubated and on Nimbex. Off insulin drip. On PRVC/AC with RR 15, TV 550, IT: 1.65, PEEP: 15 and FIO2 100%. T: 100.2 at 4 am. 04/09 Patient is sedated, intubated and remains on neuromuscular blockade. Vent setting unchanged. afebrile. 04/10 Patient remains sedated and intubated and on Nimbex. On PRVC/AC, RR 15, TV 500, PEEP: 15, FIO2 90%, IT:1.65, on Flolan drip. Remains on Rotoprone bed. 04/11 minimal improvement in oxygenation, FiO2 now at 75 - continue to improve oxygenation, worsening CXR 2/10/11 continue to improve oxygenation DC'd prone position last night 04/14- improving oxygenation, Nimbex discontinued as well as prone position 04/16 Patient is sedated with Versed and Fentanyl and intubated. Off rotoprone bed. On PRVC/AC RR 15, TV 550, IT 1.65, PEEP:15, FIO2 50%. 04/17 Patient remains sedated with Versed and Fentanyl. Afebrile, tolerating tube feeds 04/18 No acute events overnight Sedated and intubated. Afebrile. On PRVC/AC RR 15 , TV 550, IT 1.65, PEEP:15, FIO2 60% 04/19: Spiking fever up to 101, pancultured and 1 dose of vancomycin given by ID. On weaning doses of Flolan. FiO2 down to 50% I have reduced PEEP to 14. Remains critically ill Objective Vital Signs Date Time Temp Pulse Resp B/P Pulse Ox O2 Delivery O2 Flow Rate FiO2 04/19/16 15:56 92 50 04/19/16 14:00 80 04/19/16 12:00 101.4 15 107/62 Intake and Output 04/18/16 04/18/16 04/19/16 08:00 16:00 00:00 Intake Total 876 ml 1317 ml 355 ml Output Total 950 ml 1400 ml 1150 ml Balance -74 ml -83 ml -795 ml Result Diagram: 04/19/16 0450 04/19/16 0450 Imaging Last Impressions Chest X-Ray 04/16/16 0600 Signed Impressions: Service Date/Time: Saturday, April 16, 2016 03:58 - CONCLUSION: 1. Cardiomegaly. Bilateral lower lobe atelectasis versus pneumonia. There has been no significant change when compared to the prior exam. Kyaw Rojo MD Abdomen X-Ray 03/31/16 0000 Signed Impressions: Service Date/Time: Thursday, March 31, 2016 09:58 - CONCLUSION: Benign abdomen. Rodrigo Martinez MD Chest CT 03/28/16 0836 Signed Impressions: Service Date/Time: Monday, March 28, 2016 09:57 - CONCLUSION: Development areas of air bronchograms and consolidation more prominent in the right and left posterior basilar segments of the lower lobes. ET tube above the chanelle. Bernard Hartman MD CT Angiography 03/24/16 1121 Signed Impressions: Service Date/Time: Thursday, March 24, 2016 12:47 - CONCLUSION: 1. There is respiratory motion artifact but no PE is identified through most of the segmental level pulmonary arteries. 2. Mildly enlarged main pulmonary artery may indicate pulmonary arterial hypertension. 3. 11 mm left lower lobe noncalcified pulmonary nodule. Suggest correlation with any prior imaging studies that could confirm longer-term stability. If none are available consider short-term followup noncontrast chest CT in approximately 3 months. Ubaldo Rodas MD Objective Remarks GENERAL: 50-year-old male, critically ill. Orally intubated on mechanical ventilation, on sedation SKIN: Evidence of seborrheic dermatitis of the face HEAD: Atraumatic. Normocephalic. EYES: Pupils equal round and slightly reactive about 3 millimeters bilaterally. ENT: NG tube in place. NECK: Very large neck. Trachea midline. Right IJ clean dry and intact CARDIOVASCULAR: Distant heart sounds. RRR. S1, S2. No S4. Without murmur RESPIRATORY: Orally intubated on mechanical ventilation, Breath sounds equal bilaterally. Diminished breath sounds due to body habitus. GASTROINTESTINAL: Abdomen soft, obese, nontender. Severe central obesity MUSCULOSKELETAL: Extremities with trace to 1+ nonpitting bilateral lower extremity edema. NEUROLOGICAL: Intubated and sedated on the ventilator. +ve cough and gag. No withdrawal of extremities Urinary Catheter: Yes Assessment to: Continue Vascular Central Line Catheter: Yes Assessment to: Continue Date of Insertion: Apr 02, 2016 A/P Assessment and Plan Assement: 1)Acute hypoxemic respiratory failure 2)ARDS 3)Obstructive sleep apnea/ Obesity hypoventilation syndrome 4)Staph aureus pneumonia 5)Severe protein calorie malnutrition 6)Diabetes mellitus 7)Leukocytosis Plan: Neuro: On Fentanyl and Versed infusion for sedation. Daily sedation vacation when appropriate. Pulm: On PRVC/AC RR 15, TV 550, IT:1.65, PEEP:15-reduced to 15, FIO2 50% Continue with vent support keep sat >90%. Check CXR in am Bronchodilators, ICU vent bundle. Will need trach once oxygen requirements improved. Taper Flolan, decrease to 10ng/kg/min, on Solumederol 40mg daily CV:Monitor HR and BP keep MAP>65mmHg : Monitor renal function, I/O's, electrolytes replacement per protocol. On Lasix 20mg Q8. K replacement GI: On Glucerna 1.5@45ml/hr, Protonix 40mg daily On Reglan 10mg Q8,Senna, Colace. ID: Off ABX per ID (Levaquin stopped 04/16) Monitor for signs of infections ( Fever, WBC) Patient spiked fever today at 04/19/16. Single dose of vancomycin given. Sputum blood and urine cultures sent Heme: Monitor CBC Endo: SSI for glycemic control ( high scale), Levemir insulin 45U Q12 DVT, GI prophylaxis -Bilateral lower extremity SCDs. IV Protonix 40 mg daily. Lovenox 40 mg sq BID LINES: -PICC line placed 04/15 Critical Care: The total critical care time was 40 minutes. Time to perform other separately billable procedures was not included in the critical care time. Baltazar Conner MD Apr 19, 2016 16:25
[2016-04-19] MEDS: PANTOPRAZOLE SODIUM 40 MG VIAL IV PUSH SCH (18:06)
[2016-04-20] VITALS (19 sets, daily range): BP systolic 95–117; BP diastolic 51–66; PULSE 70–85; RESP 15; TEMP 99.1–101.7; O2SAT 87–94
[2016-04-20] MEDS: INSULIN NovoLIN REGULAR SUPPLEMENTAL SCALE SQ SCH ×4 (00:29→17:03)
[2016-04-20] MEDS: EPOPROSTENOL NEB SOLUTION 10 NG/KG/MIN 100 ML NEB SCH ×4 (00:29→08:00)
[2016-04-20] MEDS: MIDAZOLAM 100 MG/ML INJ 100 ML IV SCH ×3 (00:29→17:51)
[2016-04-20] MEDS: fentaNYL 2,500 MCG/NS 250 ML IV SCH ×2 (00:29→11:44)
[2016-04-20] MEDS: FUROSEMIDE 20 MG/2 ML VIAL IV PUSH SCH ×3 (00:30→17:04)
[2016-04-20] MEDS: ENOXAPARIN SODIUM 40 MG/0.4 ML SYRINGE SQ SCH ×2 (05:13→17:04)
[2016-04-20] MEDS: METOCLOPRAMIDE HCL 10 MG/2 ML VIAL IV PUSH SCH ×3 (05:13→22:04)
[2016-04-20 05:56] LABS: AUTOMATED NEUTROPHIL # 10.6 TH/MM3 (1.8-7.7); BASOPHIL # 0.1 TH/MM3 (0-0.2); BASOPHIL % 0.4 % (0.0-2.0); EOSINOPHIL % 0.3 % (0.0-4.0); HEMATOCRIT 39.6 % (39.0-51.0); HEMO FLAGS DIFF FINAL; LYMPH % 12.2 % (9.0-44.0); LYMPHOCYTE # 1.6 TH/MM3 (1.0-4.8); MEAN CORPUSCULAR HGB CONC 32.1 % (32.0-36.0); MONO % 7.7 % (0.0-8.0); NEUT % 79.4 % (16.0-70.0); PLATELET COUNT 175 TH/MM3 (150-450); RED BLOOD COUNT 4.71 MIL/MM3 (4.50-5.90); RED CELL DISTRIBUTION WIDTH 15.4 % (11.6-17.2); WHITE BLOOD COUNT 13.4 TH/MM3 (4.0-11.0)
[2016-04-20 06:15] LABS: ALKALINE PHOSPHATASE 68 U/L (45-117); ALT (GPT) 191 U/L (12-78); ANION GAP 10 MEQ/L (5-15); AST (GOT) 65 U/L (15-37); BICARBONATE 34.5 MEQ/L (21.0-32.0); BLOOD UREA NITROGEN 44 MG/DL (7-18); CHLORIDE 102 MEQ/L (98-107); GLOMERULAR FILTRATION RATE 137 ML/MIN (>89); MAGNESIUM 2.6 MG/DL (1.5-2.5); POTASSIUM 3.3 MEQ/L (3.5-5.1); SODIUM (NA) 146 MEQ/L (136-145); TOTAL BILIRUBIN ADULT 0.8 MG/DL (0.2-1.0)
--- NOTE | 2016-04-20 06:53 | RADRPT ---
EXAM DATE/TIME: 04/20/2016 04:43 [facility] COMPARISON: CHEST SINGLE AP, April 19, 2016, 3:20. INDICATIONS : Shortness of breath. MEDICAL HISTORY : Diabetes mellitus type II. SURGICAL HISTORY : None. ENCOUNTER: Subsequent ACUITY: 3 weeks PAIN SCORE: Non-responsive. LOCATION: Bilateral chest FINDINGS: The cardiac silhouette is enlarged in transverse diameter. Support lines and tubes are in satisfactor y position. There is bilateral lower lobe atelectasis versus pneumonia. CONCLUSION: 1. Bilateral lower lobe atelectasis versus pneumonia. There has been no significant change when matthew red to the prior exam. Kyaw Rojo MD on April 20, 2016 at 6:50 Board Certified Radiologist. This report was verified electronically.
[2016-04-20] MEDS: RESP: ALBUTEROL 2.5 MG/IPRATROPIUM 0.5 MG NEB (PRN) NEB (08:10)
--- NOTE | 2016-04-20 08:41 | HHI.PR ---
Subjective Remarks ON THE VENT SEDATED FIO2 AT 60% Objective Vital Signs Date Time Temp Pulse Resp B/P Pulse Ox O2 Delivery O2 Flow Rate FiO2 04/20/16 08:11 91 50 04/20/16 06:00 75 04/20/16 04:00 99.6 76 15 117/66 91 04/20/16 04:00 50 04/20/16 04:00 76 04/20/16 03:51 92 50 04/20/16 02:00 81 04/20/16 00:35 94 50 04/20/16 00:00 78 04/20/16 00:00 50 04/20/16 00:00 101.7 78 15 117/63 93 04/19/16 22:00 81 04/19/16 22:00 50 04/19/16 21:00 92 50 04/19/16 20:00 81 04/19/16 20:00 101.1 81 15 125/66 91 04/19/16 18:20 80 04/19/16 16:00 50 04/19/16 16:00 99.9 94 15 117/73 91 04/19/16 16:00 94 04/19/16 15:56 92 50 04/19/16 14:00 80 04/19/16 12:00 50 04/19/16 12:00 83 04/19/16 12:00 101.4 80 15 107/62 92 04/19/16 11:22 91 50 04/19/16 10:00 78 I/O 04/19/16 04/19/16 04/19/16 04/20/16 04/20/16 04/20/16 07:00 15:00 23:00 07:00 15:00 23:00 Intake Total 665 ml 883 ml 979 ml 691 ml Output Total 750 ml 1050 ml 1000 ml 750 ml Balance -85 ml -167 ml -21 ml -59 ml Intake Oral 0 ml IV Total 292 ml 416 ml 738 ml 336 ml Tube Feeding 343 ml 367 ml 211 ml 325 ml Other 30 ml 100 ml 30 ml 30 ml Output Urine Total 750 ml 900 ml 1000 ml 750 ml Stool Total 150 ml Result Diagram: 04/20/16 0430 04/20/16 043 Objective Remarks GENERAL: SKIN: Warm and dry. HEAD: Atraumatic. Normocephalic. EYES: Pupils equal and round. No scleral icterus. No injection or drainage. ENT: No nasal bleeding or discharge. Mucous membranes pink and moist. NECK: Trachea midline. No JVD. CARDIOVASCULAR: Regular rate and rhythm. RESPIRATORY: No accessory muscle use. Clear to auscultation. Breath sounds equal bilaterally. GASTROINTESTINAL: Abdomen soft, non-tender, nondistended. Hepatic and splenic margins not palpable. MUSCULOSKELETAL: Extremities without clubbing, cyanosis, or edema. No obvious deformities. NEUROLOGICAL: Awake and alert. No obvious cranial nerve deficits. Motor grossly within normal limits. Five out of 5 muscle strength in the arms and legs. Normal speech. PSYCHIATRIC: Appropriate mood and affect; insight and judgment normal. Assessment and Plan Assessment and Plan RESPIRATORY FAILURE SEPSIS ARDS JACOB/CSA PLAN VENT SUPPORT PULM TOILET WEAN TOLERATED. Orlando Perry MD Apr 20, 2016 08:41
[2016-04-20] MEDS: BENEPROTEIN POWDER 1 PACK G-TUBE SCH ×3 (09:00→17:04)
[2016-04-20] MEDS: DOCUSATE SODIUM 100 MG/10 ML UDC PO SCH ×2 (09:17→22:03)
[2016-04-20] MEDS: POTASSIUM CHLOR 40 MEQ PREMIX 100 ML IV PRN (09:17)
[2016-04-20] MEDS: SENNOSIDES SYRUP 8.8 MG/5 ML CUP PO/TUBE SCH ×2 (09:17→22:03)
[2016-04-20] MEDS: methylPREDNISolone SOD SUCC 40 MG/1 ML VIAL IV PUSH SCH (09:18)
[2016-04-20] MEDS: INSULIN DETEMIR 100 UNITS/ML VIAL SQ SCH ×2 (09:18→22:03)
[2016-04-20] MEDS: ARTIFICIAL TEARS OPTH OINT 3.5 APPLIC/3.5 GM TUBO EACH EYE SCH ×2 (09:18→22:03)
[2016-04-20] MEDS: SODIUM CHLORIDE 0.9% FLUSH 5 ML FLUSH IVF SCH (09:18)
[2016-04-20] MEDS: LACTOBACILLUS ACIDOPHILUS TAB PO SCH ×3 (09:18→17:04)
[2016-04-20] MEDS: BETAMETHASONE/CLOTRIMAZOLE CREAM 15 GM TOPICAL SCH ×2 (09:19→22:03)
[2016-04-20] MEDS: CHLORHEXIDINE 0.12% (ORAL KIT) 15 ML CUP MT SCH ×2 (09:22→22:04)
--- NOTE | 2016-04-20 14:14 | HHI.CCPN ---
Subjective Remarks/Hospital Course Patient is a 50 years old obese male with past medical history significant for undiagnosed sleep apnea, super morbid obesity, type 2 diabetes was brought to the emergency department on 03/24/16 after feeling light headed and dizzy. On presentation here was found to be hypoxemic and ABG showed severe hypoxemia and hypercarbia. For a recent driving physical he was diagnosed with low oxygen saturations. Patient's oxygen saturation the ED was in the low 80s, which was confirmed on ABG with a oxygen saturation of 78% and PO2 of 46. CTA negative for PE. Patient was initiated on BiPAP therapy with consult to pulmonary Dr. Crane. His oxygenation improved but he continued to be hypercapnic. Today a.m. on nasal cannula his pH was 7.26 and PCO2 was increased at 99, patient was somnolent was placed back on BiPAP and repeat ABG at noon showed pH 7.26 PCO2 98 and pO2 70. This was on 16 BiPAP with FiO2 50%. Critical care was consulted. On my evaluation patient is somnolent but wakes up easily. I reduced the PEEP on BiPAP from 12-7 to facilitate better ventilation. A repeat ANG showed only minimal improvement, so decision made to intubate patient. Glidescope with #4 blade was used. Only propofol was used for induction. Initially I had a Grade 1-2 view, but I was unable to pass tube through the vocal cord to trachea in two attempts. Tube slipped out of Laryngeal opening both times. Dr Garrett intubated patient after NM paralysis with succinylcholine. Post intubation ABG showed improvement in hypercapnia and oxygenation. 03/27/16: Patient remains intubated heavily sedated with propofol and fentanyl. Remained severely hypoxemic on 100% FiO2, PEEP12, chest x-ray shows bibasilar infiltrates. Flagyl added. We'll give 1 dose of vancomycin-Adjust antibiotics according to cultures. Patient super morbid obesity may prevent Prone therapy 03/28: Remains hypoxic but ABG shows marginal improvement in oxygenation. WBC increasing 20.1 today. Start vancomycin scheduled. 03/29: Oxygenation is slightly improved. FiO2 reduced to 50% today. Chest x- ray remains unchanged. On sedation hold patient does wake up and follow commands. WBC count remains at 20 03/30 No acute events overnight. Sedated with Diprivan and Fentanyl. Had T: 100.1 at 4 am. WBC trending down 15.9 today from 20. 03/31 Patient remains sedated with Diprivan, Fentanyl and intubated. Tmax 100.1. Patient required increase O2 overnight now on ACV with PEEP: 12 and FIO2 70%. 04/01: Tmax 99.7. No bowel movement since admission. Patient has bowel sounds. Arousable on the ventilator. We'll attempt prone the patient paralyzed to increase oxygenation status. 04/02: MAXIMUM TEMPERATURE 100.9. Currently 97.7. 5 10 cc stools overnight. Placed on Roto prone yesterday. Saturations currently 94% on Flolan. Diuresed overnight. Creatinine still within normal limits. 04/03: Tmax 101. Currently 99.1. Positive BM. Did not tolerate not being unprone this AM. Saturations much improved prone. Tolerating tube feeding. Subjective 04/04: Tmax 100.8. Currently 98.8. +2 L past 24 hours. Attempt to on prone today. Positive BM. C. difficile negative. Remains paralyzed. 04/05: Remains sedated, orally intubated on neuromuscular blockade on mechanical ventilation. Remains on Rota prone bed. On insulin drip. 04/06: Remains sedated, orally intubated on neuromuscular blockade, on mechanical ventilation. Remains on Rota prone bed. Insulin drip continues. 04/07 Patient remains on Rotoprone bed sedated with Diprivan, Versed, Fentanyl in addition patient is on Nimbex. Afebrile. On Insulin drip 5u/hr. 04/08 Patient remains sedated and intubated and on Nimbex. Off insulin drip. On PRVC/AC with RR 15, TV 550, IT: 1.65, PEEP: 15 and FIO2 100%. T: 100.2 at 4 am. 04/09 Patient is sedated, intubated and remains on neuromuscular blockade. Vent setting unchanged. afebrile. 04/10 Patient remains sedated and intubated and on Nimbex. On PRVC/AC, RR 15, TV 500, PEEP: 15, FIO2 90%, IT:1.65, on Flolan drip. Remains on Rotoprone bed. 04/11 minimal improvement in oxygenation, FiO2 now at 75 - continue to improve oxygenation, worsening CXR 2/10/11 continue to improve oxygenation DC'd prone position last night 04/14- improving oxygenation, Nimbex discontinued as well as prone position 04/16 Patient is sedated with Versed and Fentanyl and intubated. Off rotoprone bed. On PRVC/AC RR 15, TV 550, IT 1.65, PEEP:15, FIO2 50%. 04/17 Patient remains sedated with Versed and Fentanyl. Afebrile, tolerating tube feeds 04/18 No acute events overnight Sedated and intubated. Afebrile. On PRVC/AC RR 15 , TV 550, IT 1.65, PEEP:15, FIO2 60% 04/19: Spiking fever up to 101, pancultured and 1 dose of vancomycin given by ID. On weaning doses of Flolan. FiO2 down to 50% I have reduced PEEP to 14. Remains critically ill 04/20: No fever. Sputum cx with Staph -S pending. Fio2 50% PEEP remains at 14. TV increased to 650 to improve lung recruitment. On weaning dose of Flolan-DC after current bag Objective Vital Signs Date Time Temp Pulse Resp B/P Pulse Ox O2 Delivery O2 Flow Rate FiO2 04/20/16 12:00 50 04/20/16 12:00 77 04/20/16 12:00 99.4 15 99/59 87 Intake and Output 04/19/16 04/19/16 04/20/16 08:00 16:00 00:00 Intake Total 665 ml 883 ml 979 ml Output Total 750 ml 1050 ml 1000 ml Balance -85 ml -167 ml -21 ml Result Diagram: 04/20/16 0430 04/20/16 0430 Imaging Last Impressions Chest X-Ray 04/16/16 0600 Signed Impressions: Service Date/Time: Saturday, April 16, 2016 03:58 - CONCLUSION: 1. Cardiomegaly. Bilateral lower lobe atelectasis versus pneumonia. There has been no significant change when compared to the prior exam. Kyaw Rojo MD Abdomen X-Ray 03/31/16 0000 Signed Impressions: Service Date/Time: Thursday, March 31, 2016 09:58 - CONCLUSION: Benign abdomen. Rodrigo Martinez MD Chest CT 03/28/16 0836 Signed Impressions: Service Date/Time: Wednesday, March 28, 2016 09:57 - CONCLUSION: Development areas of air bronchograms and consolidation more prominent in the right and left posterior basilar segments of the lower lobes. ET tube above the chanelle. Bernard Hartman MD CT Angiography 03/24/16 1121 Signed Impressions: Service Date/Time: Saturday, March 24, 2016 12:47 - CONCLUSION: 1. There is respiratory motion artifact but no PE is identified through most of the segmental level pulmonary arteries. 2. Mildly enlarged main pulmonary artery may indicate pulmonary arterial hypertension. 3. 11 mm left lower lobe noncalcified pulmonary nodule. Suggest correlation with any prior imaging studies that could confirm longer-term stability. If none are available consider short-term followup noncontrast chest CT in approximately 3 months. Ubaldo Rodas MD Objective Remarks GENERAL: 50-year-old male, critically ill. Orally intubated on mechanical ventilation, on sedation SKIN: Seborrheic dermatitis of the face HEAD: Atraumatic. Normocephalic. EYES: Pupils equal round and slightly reactive about 3 millimeters bilaterally. ENT: NG tube in place. Orotracheally intubated NECK: Very large neck. Trachea midline. IJ clean dry and intact CARDIOVASCULAR: Distant heart sounds. RRR. S1, S2. No S4. Without murmur RESPIRATORY: Orally intubated on mechanical ventilation, Breath sounds equal bilaterally. Diminished breath sounds due to body habitus. GASTROINTESTINAL: Abdomen soft, obese, nontender. Severe central obesity MUSCULOSKELETAL: Extremities with trace to 1+ nonpitting bilateral lower extremity edema. NEUROLOGICAL: Intubated and sedated on the ventilator. Opens eyes appears to track minimally. +ve cough and gag. No withdrawal of extremities Date of Insertion: Apr 02, 2016 A/P Assessment and Plan Assement: 1)Acute hypoxemic respiratory failure 2)ARDS 3)Obstructive sleep apnea/ Obesity hypoventilation syndrome 4)Staph aureus pneumonia 5)Severe protein calorie malnutrition 6)Diabetes mellitus 7)Leukocytosis Plan: Neuro: On Fentanyl and Versed infusion for sedation. Daily sedation vacation when appropriate. Pulm: On PRVC/AC RR 15, TV 650, IT:1.65, PEEP:14, FIO2 50% Continue with vent support keep sat >90%. CXR in am Bronchodilators, ICU vent bundle. Will need trach once oxygen requirements, PEEP improved. Taper Flolan, decrease to 4ng/kg/min, on Solumederol 40mg daily CV:Monitor HR and BP keep MAP>65mmHg : Monitor renal function, I/O's, electrolytes replacement per protocol. On Lasix 20mg Q8. K replacement GI: On Glucerna 1.5@45ml/hr, Protonix 40mg daily On Reglan 10mg Q8,Senna, Colace. ID: Off ABX per ID (Levaquin stopped 04/16) Monitor for signs of infections ( Fever, WBC) Patient spiked fever today at 04/19/16. Single dose of vancomycin given . Sputum-staph aureus blood and urine cultures sent. Continue vanc until cx back Heme: Monitor CBC Endo: SSI for glycemic control ( high scale), Levemir insulin 45U Q12 DVT, GI prophylaxis -Bilateral lower extremity SCDs. IV Protonix 40 mg daily. Lovenox 40 mg sq BID LINES: -PICC line placed 04/15 Critical Care: The total critical care time was 40 minutes. Time to perform other separately billable procedures was not included in the critical care time. Baltazar Conner MD Apr 20, 2016 14:14
[2016-04-20] MEDS ORDERED: Vancomycin Consult Pharmacy 1 EA OTHER SCH (14:15)
[2016-04-20] MEDS: PANTOPRAZOLE SODIUM 40 MG VIAL IV PUSH SCH (17:04)
[2016-04-20] MEDS: VANCOMYCIN INJ 2,000 MG in SODIUM CHLORID 0.9% 500 ML INJ 500 ML IV SCH (17:06)
--- NOTE | 2016-04-20 17:39 | HHI.IDPN ---
Subjective Subjective Remarks Notes reviewed Temps lower One BC with GPC Sputum with Staph aureus UA ok On PRVC, FiO2 at 50% Not much secretions On multiple sedation Tolerating TF BP good not on pressors Good UO Antibiotics Vancomycin Lines PICC 04/15 Past Medical History Reviewed Allergies: Coded Allergies: Penicillin (Verified Allergy, Severe, Swelling, 03/24/16) Tetanus Toxoid (Verified Allergy, Unknown, Swelling, 03/24/16) Objective . Vital Signs Date Time Temp Pulse Resp B/P Pulse Ox O2 Delivery O2 Flow Rate FiO2 04/20/16 16:00 50 04/20/16 16:00 81 04/20/16 16:00 100.3 83 15 102/58 88 04/20/16 15:27 88 50 04/20/16 14:00 78 04/20/16 12:00 50 04/20/16 12:00 77 04/20/16 12:00 99.4 81 15 99/59 87 04/20/16 11:17 89 50 04/20/16 10:00 84 04/20/16 08:11 91 50 04/20/16 08:00 70 04/20/16 08:00 99.1 73 15 95/51 90 04/20/16 08:00 50 04/20/16 06:00 75 04/20/16 04:00 99.6 76 15 117/66 91 04/20/16 04:00 50 04/20/16 04:00 76 04/20/16 03:51 92 50 04/20/16 02:00 81 04/20/16 00:35 94 50 04/20/16 00:00 78 04/20/16 00:00 50 04/20/16 00:00 101.7 78 15 117/63 93 04/19/16 22:00 81 04/19/16 22:00 50 04/19/16 21:00 92 50 04/19/16 20:00 81 04/19/16 20:00 101.1 81 15 125/66 91 04/19/16 18:20 80 04/19/16 04/19/16 04/20/16 15:00 23:00 07:00 Intake Total 883 ml 979 ml 691 ml Output Total 1050 ml 1000 ml 750 ml Balance -167 ml -21 ml -59 ml Intake Oral 0 ml IV Total 416 ml 738 ml 336 ml Tube Feeding 367 ml 211 ml 325 ml Other 100 ml 30 ml 30 ml Output Urine Total 900 ml 1000 ml 750 ml Stool Total 150 ml . Laboratory Tests Test 04/19/16 04/20/16 04:50 04:30 White Blood Count 14.5 TH/MM3 13.4 TH/MM3 Red Blood Count 4.80 MIL/MM3 4.71 MIL/MM3 Hemoglobin 13.2 GM/DL 12.7 GM/DL Hematocrit 40.0 % 39.6 % Mean Corpuscular Volume 83.4 FL 84.0 FL Mean Corpuscular Hemoglobin 27.5 PG 27.0 PG Mean Corpuscular Hemoglobin 33.0 % 32.1 % Concent Red Cell Distribution Width 15.1 % 15.4 % Platelet Count 184 TH/MM3 175 TH/MM3 Mean Platelet Volume 9.5 FL 9.8 FL Neutrophils (%) (Auto) 78.2 % 79.4 % Lymphocytes (%) (Auto) 12.9 % 12.2 % Monocytes (%) (Auto) 8.1 % 7.7 % Eosinophils (%) (Auto) 0.5 % 0.3 % Basophils (%) (Auto) 0.3 % 0.4 % Neutrophils # (Auto) 11.3 TH/MM3 10.6 TH/MM3 Lymphocytes # (Auto) 1.9 TH/MM3 1.6 TH/MM3 Monocytes # (Auto) 1.2 TH/MM3 1.0 TH/MM3 Eosinophils # (Auto) 0.1 TH/MM3 0.0 TH/MM3 Basophils # (Auto) 0.1 TH/MM3 0.1 TH/MM3 CBC Comment DIFF FINAL DIFF FINAL Differential Comment Laboratory Tests Test 04/19/16 04/19/16 04/20/16 04:50 13:24 04:30 Sodium Level 143 MEQ/L 146 MEQ/L Potassium Level 3.5 MEQ/L 3.3 MEQ/L Chloride Level 101 MEQ/L 102 MEQ/L Carbon Dioxide Level 34.4 MEQ/L 34.5 MEQ/L Anion Gap 8 MEQ/L 10 MEQ/L Blood Urea Nitrogen 45 MG/DL 44 MG/DL Creatinine 0.67 MG/DL 0.62 MG/DL Estimat Glomerular Filtration 126 ML/MIN 137 ML/MIN Rate Random Glucose 188 MG/DL 203 MG/DL Calcium Level 8.9 MG/DL 9.1 MG/DL Total Bilirubin 0.9 MG/DL 0.8 MG/DL Direct Bilirubin 0.4 MG/DL Indirect Bilirubin 0.5 MG/DL Aspartate Amino Transf 53 U/L 65 U/L (AST/SGOT) Alanine Aminotransferase 149 U/L 191 U/L (ALT/SGPT) Alkaline Phosphatase 74 U/L 68 U/L Total Protein 6.8 GM/DL 7.0 GM/DL Albumin 2.8 GM/DL 2.8 GM/DL Magnesium Level 2.6 MG/DL Microbiology Date/Time Procedure Status Source Growth 04/19/16 13:24 Aerobic Blood Culture - Preliminary Resulted Blood Peripheral NO GROWTH IN 1 DAY 04/19/16 13:24 Anaerobic Blood Culture - Preliminary Resulted Blood Peripheral NO GROWTH IN 1 DAY 04/19/16 13:30 Aerobic Blood Culture - Preliminary Resulted Blood Peripheral Gram Positive Cocci 04/19/16 13:30 Anaerobic Blood Culture - Preliminary Resulted Gram Positive Cocci 04/19/16 21:30 Gram Stain - Final Resulted Sputum Endotracheal 04/19/16 21:30 Sputum Culture - Preliminary Resulted Staphylococcus Aureus Imaging Chest X-Ray 04/19/16 0000 Signed Impressions: Service Date/Time: April 03:20 - CONCLUSION: 1. Cardiomegaly and findings of congestive heart failure. There has been no significant change when compared to the prior exam. Kyaw Rojo MD Chest X-Ray 04/18/16 0000 Signed Impressions: Service Date/Time: Monday, April 18, 2016 09:59 - CONCLUSION: 1. Support equipment in good position. 2. Small left basilar effusion and consolidative changes in the left lower lobe and perihilar region on the right. Dc Barton MD Chest X-Ray 04/16/16 0600 Signed Impressions: Service Date/Time: Saturday, April 16, 2016 03:58 - CONCLUSION: 1. Cardiomegaly. Bilateral lower lobe atelectasis versus pneumonia. There has been no significant change when compared to the prior exam. Kyaw Rojo MD Abdomen X-Ray 03/31/16 0000 Signed Impressions: Service Date/Time: Thursday, March 31, 2016 09:58 - CONCLUSION: Benign abdomen. Rodrigo Martinez MD Chest CT 03/28/16 0836 Signed Impressions: Service Date/Time: Monday, March 28, 2016 09:57 - CONCLUSION: Development areas of air bronchograms and consolidation more prominent in the right and left posterior basilar segments of the lower lobes. ET tube above the chanelle. Bernard Hartman MD CT Angiography 03/24/16 1121 Signed Impressions: Service Date/Time: Thursday, March 24, 2016 12:47 - CONCLUSION: 1. There is respiratory motion artifact but no PE is identified through most of the segmental level pulmonary arteries. 2. Mildly enlarged main pulmonary artery may indicate pulmonary arterial hypertension. 3. 11 mm left lower lobe noncalcified pulmonary nodule. Suggest correlation with any prior imaging studies that could confirm longer-term stability. If none are available consider short-term followup noncontrast chest CT in approximately 3 months. Ubaldo Rodas MD Chest X-Ray 04/12/16 06 Signed Impressions: Service Date/Time: April 04:14 - CONCLUSION: Worsening appearance of the chest. Henrry Andrea MD Chest X-Ray 04/11/16 0000 Signed Impressions: Service Date/Time: Monday, April 11, 2016 04:09 - CONCLUSION: No significant change has occurred. Henrry Andrea MD Chest X-Ray 04/09/16 09 Signed Impressions: Service Date/Time: Saturday, April 09, 2016 09:12 - CONCLUSION: 1. Diffuse alveolar consolidation of the left lung and right upper lung field consistent with pneumonia and/or asymmetric pulmonary edema. Clinical correlation is recommended. 2. Endotracheal tube has its tip 1 cm above the chanelle. This could be pulled back 2 cm for more optimal position. Farhat Montes MD Chest X-Ray 04/05/16 06 Signed Impressions: Service Date/Time: April 03:25 - CONCLUSION: 1. Improved basilar consolidation. Residual versus developing right midlung consolidation. 2. Small bilateral pleural effusions are suspected. 3. No change cardiomegaly or lines/tubes. Ubaldo Ortiz MD Chest X-Ray 04/04/16 06 Signed Impressions: Service Date/Time: Monday, April 04, 2016 04:44 - CONCLUSION: Worsening bilateral airspace opacities, especially left perihilar. Ubaldo Ortiz MD Chest X-Ray 2/1599 Signed Impressions: Service Date/Time: Monday, April 04, 2016 04:44 - CONCLUSION: Worsening bilateral airspace opacities, especially left perihilar. Ubaldo Ortiz MD Chest X-Ray 04/03/16599 Signed Impressions: Service Date/Time: Sunday, April 03, 2016 00:16 - CONCLUSION: Potential developing pneumonia in the right upper lobe. Bibasilar atelectasis modestly worse in the interim. Ubaldo Ortiz MD Chest X-Ray 04/03/16599 Signed Impressions: Service Date/Time: Sunday, April 03, 2016 00:16 - CONCLUSION: Potential developing pneumonia in the right upper lobe. Bibasilar atelectasis modestly worse in the interim. Ubaldo Ortiz MD Chest X-Ray 04/02/16924 Signed Impressions: Service Date/Time: Saturday, April 02, 2016 09:22 - CONCLUSION: Place a right jugular catheter terminates superior vena cava with no pneumothorax. Bernard Hartman MD Physical Exam GENERAL: Morbidly obese, sedated, on the vent, NAD SKIN: Cool skin, no cyanosis. No rash HEENT: No icterus, ET in place CHEST: Coarse BS bilaterally, decreased at bases CARDIAC: regular, no murmur ABDOMEN: soft, obese, (+) BS : Becker in place, urine looks clear MUSCULOSKELETAL: Extremities without clubbing, cyanosis. Has improving pedal edema and edema hands NEUROLOGICAL: Sedated on the vent. PSYCH: Unable to assess LINE: No evidence of infection Assessment & Plan Remarks IMPRESSION Leukocytosis, persistent, stable - has been on adequate Abx for pathogens isolated Pneumonia, C/S MSSA - Last CXR stable - S/P RX JACOB Respiratory failure, improving O2 requirement - has extensive infiltrates Morbid obesity Allergy to PCN, swelling Fevers, recurrent - has (+) BC - ?new VAp RECOMMENDATION Monitor progress Follow C/S Monitor temps Continue IV vancomycin Monitor Elisha Jamil MD Apr 20, 2016 17:39
[2016-04-21] VITALS (19 sets, daily range): BP systolic 106–123; BP diastolic 61–73; PULSE 74–86; RESP 15; TEMP 98–99.4; O2SAT 90–97
[2016-04-21] MEDS: FUROSEMIDE 20 MG/2 ML VIAL IV PUSH SCH ×3 (00:19→16:55)
[2016-04-21] MEDS: fentaNYL 2,500 MCG/NS 250 ML IV SCH ×2 (00:19→09:00)
[2016-04-21] MEDS: INSULIN NovoLIN REGULAR SUPPLEMENTAL SCALE SQ SCH ×4 (00:22→16:55)
--- NOTE | 2016-04-21 04:18 | RADRPT ---
EXAM DATE/TIME: 04/21/2016 03:09 [facility] COMPARISON: CHEST SINGLE AP, April 20, 2016, 4:43. INDICATIONS : Shortness of breath, possible pulmonary disease. MEDICAL HISTORY : Diabetes mellitus type II. SURGICAL HISTORY : None. ENCOUNTER: Subsequent ACUITY: 3 weeks PAIN SCORE: Non-responsive. LOCATION: Bilateral chest FINDINGS: The cardiac silhouette is enlarged in transverse diameter. Support lines and tubes are in satisfactor y position. Moderate size bilateral pleural effusions are identified. CONCLUSION: 1. Cardiomegaly with bilateral pleural effusions. There has been no significant change when compared to the prior exam. Kyaw Rojo MD on April 21, 2016 at 4:17 Board Certified Radiologist. This report was verified electronically.
[2016-04-21] MEDS: METOCLOPRAMIDE HCL 10 MG/2 ML VIAL IV PUSH SCH ×3 (05:31→21:01)
[2016-04-21] MEDS: VANCOMYCIN INJ 2,000 MG in SODIUM CHLORID 0.9% 500 ML INJ 500 ML IV SCH ×2 (05:31→16:54)
[2016-04-21] MEDS: ENOXAPARIN SODIUM 40 MG/0.4 ML SYRINGE SQ SCH ×2 (05:31→16:54)
[2016-04-21 06:11] LABS: AUTOMATED NEUTROPHIL # 11.4 TH/MM3 (1.8-7.7); BASOPHIL # 0.1 TH/MM3 (0-0.2); BASOPHIL % 0.6 % (0.0-2.0); EOSINOPHIL # 0.2 TH/MM3 (0-0.4); EOSINOPHIL % 1.4 % (0.0-4.0); HEMATOCRIT 39.8 % (39.0-51.0); HEMO FLAGS DIFF FINAL; LYMPH % 13.7 % (9.0-44.0); MEAN CELL VOLUME 83.1 FL (80.0-100.0); MEAN CORPUSCULAR HEMOGLOBIN 27.1 PG (27.0-34.0); MEAN CORPUSCULAR HGB CONC 32.6 % (32.0-36.0); NEUT % 77.3 % (16.0-70.0); PLATELET COUNT 175 TH/MM3 (150-450); RED BLOOD COUNT 4.78 MIL/MM3 (4.50-5.90); RED CELL DISTRIBUTION WIDTH 15.6 % (11.6-17.2); WHITE BLOOD COUNT 14.7 TH/MM3 (4.0-11.0)
[2016-04-21 06:41] LABS: ANION GAP 11 MEQ/L (5-15); AST (GOT) 62 U/L (15-37); BICARBONATE 32.3 MEQ/L (21.0-32.0); BLOOD UREA NITROGEN 47 MG/DL (7-18); CHLORIDE 106 MEQ/L (98-107); GLOMERULAR FILTRATION RATE 126 ML/MIN (>89); SODIUM (NA) 149 MEQ/L (136-145)
[2016-04-21 06:44] LABS: ALKALINE PHOSPHATASE 71 U/L (45-117); ALT (GPT) 210 U/L (12-78)
[2016-04-21] MEDS: MIDAZOLAM 100 MG/ML INJ 100 ML IV SCH (09:00)
[2016-04-21] MEDS: POTASSIUM CHLOR 40 MEQ PREMIX 100 ML IV PRN ×2 (09:00→10:53)
[2016-04-21] MEDS: DOCUSATE SODIUM 100 MG/10 ML UDC PO SCH ×2 (09:00→20:34)
[2016-04-21] MEDS: BENEPROTEIN POWDER 1 PACK G-TUBE SCH ×3 (09:00→16:55)
[2016-04-21] MEDS: methylPREDNISolone SOD SUCC 40 MG/1 ML VIAL IV PUSH SCH (09:00)
[2016-04-21] MEDS: SENNOSIDES SYRUP 8.8 MG/5 ML CUP PO/TUBE SCH ×2 (09:00→20:34)
[2016-04-21] MEDS: BETAMETHASONE/CLOTRIMAZOLE CREAM 15 GM TOPICAL SCH ×2 (09:01→20:34)
[2016-04-21] MEDS: CHLORHEXIDINE 0.12% (ORAL KIT) 15 ML CUP MT SCH ×2 (09:01→20:34)
[2016-04-21] MEDS: ARTIFICIAL TEARS OPTH OINT 3.5 APPLIC/3.5 GM TUBO EACH EYE SCH ×2 (09:01→20:34)
[2016-04-21] MEDS: INSULIN DETEMIR 100 UNITS/ML VIAL SQ SCH ×2 (09:01→20:35)
[2016-04-21] MEDS: LACTOBACILLUS ACIDOPHILUS TAB PO SCH ×3 (09:02→16:55)
[2016-04-21] MEDS: SODIUM CHLORIDE 0.9% FLUSH 5 ML FLUSH IVF SCH (10:53)
[2016-04-21] MEDS: SODIUM CHLORIDE 0.9% FLUSH 5 ML FLUSH IVF PRN ×2 (10:53)
--- NOTE | 2016-04-21 13:04 | HHI.IDPN ---
Subjective Subjective Remarks ID [facility] for . is a 50 years old obese male with past medical history significant for undiagnosed sleep apnea, super morbid obesity, type 2 diabetes was brought to the emergency department on 03/24/16. ID following for MSSA pneumonia. Overnight events reviewed. low grade temps 100.3 F. One BC with GPC Sputum with Staph aureus UA ok Off flonase. Not much secretions On multiple sedation Tolerating TF BP good not on pressors Good UO Antibiotics Vancomycin IV Lines PICC 04/15 Past Medical History Reviewed Allergies: Coded Allergies: Penicillin (Verified Allergy, Severe, Swelling, 03/24/16) Tetanus Toxoid (Verified Allergy, Unknown, Swelling, 03/24/16) Objective . Vital Signs Date Time Temp Pulse Resp B/P Pulse Ox O2 Delivery O2 Flow Rate FiO2 04/21/16 12:24 94 50 04/21/16 10:00 78 04/21/16 08:00 98.0 78 15 107/61 92 04/21/16 08:00 50 04/21/16 07:17 93 50 04/21/16 06:00 83 04/21/16 04:12 91 50 04/21/16 04:00 74 04/21/16 04:00 50 04/21/16 04:00 98.1 74 15 110/63 91 04/21/16 02:00 78 04/21/16 01:08 90 50 04/21/16 00:00 98.5 77 15 113/64 91 04/21/16 00:00 77 04/21/16 00:00 50 04/20/16 22:12 91 50 04/20/16 22:00 85 04/20/16 20:38 89 50 04/20/16 20:00 50 04/20/16 20:00 75 04/20/16 20:00 99.1 75 15 107/63 89 04/20/16 18:00 75 04/20/16 16:00 50 04/20/16 16:00 81 04/20/16 16:00 100.3 83 15 102/58 88 04/20/16 15:27 88 50 04/20/16 14:00 78 04/20/16 04/20/16 04/21/16 15:00 23:00 07:00 Intake Total 968 ml 1209 ml 663 ml Output Total 925 ml 1100 ml 1000 ml Balance 43 ml 109 ml -337 ml Intake Oral 0 ml IV Total 505 ml 809 ml 275 ml Tube Feeding 343 ml 300 ml 338 ml Other 120 ml 100 ml 50 ml Output Urine Total 875 ml 1000 ml 1000 ml Stool Total 50 ml 100 ml . Laboratory Tests Test 04/20/16 04/21/16 04:30 05:40 White Blood Count 13.4 TH/MM3 14.7 TH/MM3 Red Blood Count 4.71 MIL/MM3 4.78 MIL/MM3 Hemoglobin 12.7 GM/DL 13.0 GM/DL Hematocrit 39.6 % 39.8 % Mean Corpuscular Volume 84.0 FL 83.1 FL Mean Corpuscular Hemoglobin 27.0 PG 27.1 PG Mean Corpuscular Hemoglobin 32.1 % 32.6 % Concent Red Cell Distribution Width 15.4 % 15.6 % Platelet Count 175 TH/MM3 175 TH/MM3 Mean Platelet Volume 9.8 FL 9.6 FL Neutrophils (%) (Auto) 79.4 % 77.3 % Lymphocytes (%) (Auto) 12.2 % 13.7 % Monocytes (%) (Auto) 7.7 % 7.0 % Eosinophils (%) (Auto) 0.3 % 1.4 % Basophils (%) (Auto) 0.4 % 0.6 % Neutrophils # (Auto) 10.6 TH/MM3 11.4 TH/MM3 Lymphocytes # (Auto) 1.6 TH/MM3 2.0 TH/MM3 Monocytes # (Auto) 1.0 TH/MM3 1.0 TH/MM3 Eosinophils # (Auto) 0.0 TH/MM3 0.2 TH/MM3 Basophils # (Auto) 0.1 TH/MM3 0.1 TH/MM3 CBC Comment DIFF FINAL DIFF FINAL Differential Comment Laboratory Tests Test 04/19/16 04/20/16 04/21/16 13:24 04:30 05:40 Total Bilirubin 0.9 MG/DL 0.8 MG/DL 1.0 MG/DL Direct Bilirubin 0.4 MG/DL Indirect Bilirubin 0.5 MG/DL Aspartate Amino Transf 53 U/L 65 U/L 62 U/L (AST/SGOT) Alanine Aminotransferase 149 U/L 191 U/L 210 U/L (ALT/SGPT) Alkaline Phosphatase 74 U/L 68 U/L 71 U/L Total Protein 6.8 GM/DL 7.0 GM/DL 6.9 GM/DL Albumin 2.8 GM/DL 2.8 GM/DL 2.8 GM/DL Sodium Level 146 MEQ/L 149 MEQ/L Potassium Level 3.3 MEQ/L 3.0 MEQ/L Chloride Level 102 MEQ/L 106 MEQ/L Carbon Dioxide Level 34.5 MEQ/L 32.3 MEQ/L Anion Gap 10 MEQ/L 11 MEQ/L Blood Urea Nitrogen 44 MG/DL 47 MG/DL Creatinine 0.62 MG/DL 0.67 MG/DL Estimat Glomerular Filtration 137 ML/MIN 126 ML/MIN Rate Random Glucose 203 MG/DL 186 MG/DL Calcium Level 9.1 MG/DL 9.1 MG/DL Magnesium Level 2.6 MG/DL Microbiology Date/Time Procedure Status Source Growth 04/19/16 13:24 Aerobic Blood Culture - Preliminary Resulted Blood Peripheral NO GROWTH IN 2 DAYS 04/19/16 13:24 Anaerobic Blood Culture - Preliminary Resulted Blood Peripheral NO GROWTH IN 2 DAYS 04/19/16 13:30 Aerobic Blood Culture - Preliminary Resulted Blood Peripheral Staph Sp Coagulase Negative 04/19/16 13:30 Anaerobic Blood Culture - Preliminary Resulted Staph Sp Coagulase Negative 04/19/16 21:30 Gram Stain - Final Resulted Sputum Endotracheal 04/19/16 21:30 Sputum Culture - Preliminary Resulted Staphylococcus Aureus Imaging Chest X-Ray 04/19/16 0000 Signed Impressions: Service Date/Time: April 03:20 - CONCLUSION: 1. Cardiomegaly and findings of congestive heart failure. There has been no significant change when compared to the prior exam. Kyaw Rojo MD Chest X-Ray 04/18/16 0000 Signed Impressions: Service Date/Time: Monday, April 18, 2016 09:59 - CONCLUSION: 1. Support equipment in good position. 2. Small left basilar effusion and consolidative changes in the left lower lobe and perihilar region on the right. Dc Barton MD Chest X-Ray 04/16/16 0600 Signed Impressions: Service Date/Time: Saturday, April 16, 2016 03:58 - CONCLUSION: 1. Cardiomegaly. Bilateral lower lobe atelectasis versus pneumonia. There has been no significant change when compared to the prior exam. Kyaw Rojo MD Abdomen X-Ray 03/31/16 0000 Signed Impressions: Service Date/Time: Thursday, March 31, 2016 09:58 - CONCLUSION: Benign abdomen. Rodrigo Martinez MD Chest CT 03/28/16 0836 Signed Impressions: Service Date/Time: Monday, March 28, 2016 09:57 - CONCLUSION: Development areas of air bronchograms and consolidation more prominent in the right and left posterior basilar segments of the lower lobes. ET tube above the chanelle. Bernard Hartman MD CT Angiography 03/24/16 1121 Signed Impressions: Service Date/Time: Thursday, March 24, 2016 12:47 - CONCLUSION: 1. There is respiratory motion artifact but no PE is identified through most of the segmental level pulmonary arteries. 2. Mildly enlarged main pulmonary artery may indicate pulmonary arterial hypertension. 3. 11 mm left lower lobe noncalcified pulmonary nodule. Suggest correlation with any prior imaging studies that could confirm longer-term stability. If none are available consider short-term followup noncontrast chest CT in approximately 3 months. Ubaldo Rodas MD Chest X-Ray 04/12/16 0600 Signed Impressions: Service Date/Time: April 04:14 - CONCLUSION: Worsening appearance of the chest. Henrry Andrea MD Chest X-Ray 04/11/16 0000 Signed Impressions: Service Date/Time: Monday, April 11, 2016 04:09 - CONCLUSION: No significant change has occurred. Henrry Andrea MD Chest X-Ray 04/09/16 0900 Signed Impressions: Service Date/Time: Saturday, April 09, 2016 09:12 - CONCLUSION: 1. Diffuse alveolar consolidation of the left lung and right upper lung field consistent with pneumonia and/or asymmetric pulmonary edema. Clinical correlation is recommended. 2. Endotracheal tube has its tip 1 cm above the chanelle. This could be pulled back 2 cm for more optimal position. Farhat Montes MD Chest X-Ray 04/05/16 0600 Signed Impressions: Service Date/Time: April 03:25 - CONCLUSION: 1. Improved basilar consolidation. Residual versus developing right midlung consolidation. 2. Small bilateral pleural effusions are suspected. 3. No change cardiomegaly or lines/tubes. Ubaldo Ortiz MD Chest X-Ray 04/04/16599 Signed Impressions: Service Date/Time: Monday, April 04, 2016 04:44 - CONCLUSION: Worsening bilateral airspace opacities, especially left perihilar. Ubaldo Ortiz MD Chest X-Ray 04/04/16599 Signed Impressions: Service Date/Time: Monday, April 04, 2016 04:44 - CONCLUSION: Worsening bilateral airspace opacities, especially left perihilar. Ubaldo Ortiz MD Chest X-Ray 04/03/16599 Signed Impressions: Service Date/Time: Sunday, April 03, 2016 00:16 - CONCLUSION: Potential developing pneumonia in the right upper lobe. Bibasilar atelectasis modestly worse in the interim. Ubaldo Ortiz MD Chest X-Ray 04/03/16599 Signed Impressions: Service Date/Time: Sunday, April 03, 2016 00:16 - CONCLUSION: Potential developing pneumonia in the right upper lobe. Bibasilar atelectasis modestly worse in the interim. Ubaldo Ortiz MD Chest X-Ray 04/02/16924 Signed Impressions: Service Date/Time: Saturday, April 02, 2016 09:22 - CONCLUSION: Place a right jugular catheter terminates superior vena cava with no pneumothorax. Bernard Hartman MD Physical Exam GENERAL: Morbidly obese, sedated, on the vent, NAD SKIN: Cool skin, no cyanosis. No rash HEENT: No icterus, ET in place CHEST: Coarse BS bilaterally, decreased at bases CARDIAC: regular, no murmur ABDOMEN: soft, obese, (+) BS : Becker in place, urine looks clear MUSCULOSKELETAL: Extremities without clubbing, cyanosis. Has improving pedal edema and edema hands NEUROLOGICAL: Sedated on the vent. PSYCH: Unable to assess LINE: No evidence of infection Assessment & Plan Remarks IMPRESSION Leukocytosis, persistent, stable - has been on adequate Abx for pathogens isolated Pneumonia, C/S MSSA - Last CXR stable - S/P RX JACOB Respiratory failure, improving O2 requirement - has extensive infiltrates Morbid obesity Allergy to PCN, swelling Fevers, recurrent - has (+) BC - ?new VAp RECOMMENDATION Monitor progress Follow C/S Monitor temps Continue IV vancomycin. PCN allergy swelling noted but could not complain details. Would ideally prefer a PCN or cephalosporin for MSSA pneumonia. Monitor temps to resume care on Saturday04/23/16. Please call sooner if any change in clinical condition. Renetta Monge MD Apr 21, 2016 13:04
--- NOTE | 2016-04-21 14:24 | HHI.PR ---
Subjective Remarks ON THE VENT SEDATED FIO2 AT 60% Objective Vital Signs Date Time Temp Pulse Resp B/P Pulse Ox O2 Delivery O2 Flow Rate FiO2 04/21/16 14:00 74 04/21/16 12:24 94 50 04/21/16 12:00 50 04/21/16 12:00 86 04/21/16 12:00 98.2 86 15 123/73 93 04/21/16 10:00 78 04/21/16 08:00 98.0 78 15 107/61 92 04/21/16 08:00 50 04/21/16 07:17 93 50 04/21/16 06:00 83 04/21/16 04:12 91 50 04/21/16 04:00 74 04/21/16 04:00 50 04/21/16 04:00 98.1 74 15 110/63 91 04/21/16 02:00 78 04/21/16 01:08 90 50 04/21/16 00:00 98.5 77 15 113/64 91 04/21/16 00:00 77 04/21/16 00:00 50 04/20/16 22:12 91 50 04/20/16 22:00 85 04/20/16 20:38 89 50 04/20/16 20:00 50 04/20/16 20:00 75 04/20/16 20:00 99.1 75 15 107/63 89 04/20/16 18:00 75 04/20/16 16:00 50 04/20/16 16:00 81 04/20/16 16:00 100.3 83 15 102/58 88 04/20/16 15:27 88 50 I/O 04/20/16 04/20/16 04/20/16 04/21/16 04/21/16 04/21/16 07:00 15:00 23:00 07:00 15:00 23:00 Intake Total 691 ml 968 ml 1209 ml 663 ml Output Total 750 ml 925 ml 1100 ml 1000 ml 0 ml Balance -59 ml 43 ml 109 ml -337 ml 0 ml Intake Oral 0 ml IV Total 336 ml 505 ml 809 ml 275 ml Tube Feeding 325 ml 343 ml 300 ml 338 ml Other 30 ml 120 ml 100 ml 50 ml Output Urine Total 750 ml 875 ml 1000 ml 1000 ml Stool Total 50 ml 100 ml Tube Feeding Residual Discard 0 ml Result Diagram: 04/21/16 0540 04/21/16 0540 Objective Remarks GENERAL: SKIN: Warm and dry. HEAD: Atraumatic. Normocephalic. EYES: Pupils equal and round. No scleral icterus. No injection or drainage. ENT: No nasal bleeding or discharge. Mucous membranes pink and moist. NECK: Trachea midline. No JVD. CARDIOVASCULAR: Regular rate and rhythm. RESPIRATORY: No accessory muscle use. Clear to auscultation. Breath sounds equal bilaterally. GASTROINTESTINAL: Abdomen soft, non-tender, nondistended. Hepatic and splenic margins not palpable. MUSCULOSKELETAL: Extremities without clubbing, cyanosis, or edema. No obvious deformities. NEUROLOGICAL: Awake and alert. No obvious cranial nerve deficits. Motor grossly within normal limits. Five out of 5 muscle strength in the arms and legs. Normal speech. PSYCHIATRIC: Appropriate mood and affect; insight and judgment normal. Assessment and Plan Assessment and Plan RESPIRATORY FAILURE SEPSIS ARDS JACOB/CSA PLAN VENT SUPPORT PULM TOILET WEAN TOLERATED. Orlando Perry MD Apr 21, 2016 14:23
[2016-04-21] MEDS: PANTOPRAZOLE SODIUM 40 MG VIAL IV PUSH SCH (16:55)
--- NOTE | 2016-04-21 17:09 | HHI.CCPN ---
Subjective Remarks/Hospital Course Patient is a 50 years old obese male with past medical history significant for undiagnosed sleep apnea, super morbid obesity, type 2 diabetes was brought to the emergency department on 03/24/16 after feeling light headed and dizzy. On presentation here was found to be hypoxemic and ABG showed severe hypoxemia and hypercarbia. For a recent driving physical he was diagnosed with low oxygen saturations. Patient's oxygen saturation the ED was in the low 80s, which was confirmed on ABG with a oxygen saturation of 78% and PO2 of 46. CTA negative for PE. Patient was initiated on BiPAP therapy with consult to pulmonary Dr. Crane. His oxygenation improved but he continued to be hypercapnic. Today a.m. on nasal cannula his pH was 7.26 and PCO2 was increased at 99, patient was somnolent was placed back on BiPAP and repeat ABG at noon showed pH 7.26 PCO2 98 and pO2 70. This was on 16 BiPAP with FiO2 50%. Critical care was consulted. On my evaluation patient is somnolent but wakes up easily. I reduced the PEEP on BiPAP from 12-7 to facilitate better ventilation. A repeat ANG showed only minimal improvement, so decision made to intubate patient. Glidescope with #4 blade was used. Only propofol was used for induction. Initially I had a Grade 1-2 view, but I was unable to pass tube through the vocal cord to trachea in two attempts. Tube slipped out of Laryngeal opening both times. Dr Garrett intubated patient after NM paralysis with succinylcholine. Post intubation ABG showed improvement in hypercapnia and oxygenation. 03/27/16: Patient remains intubated heavily sedated with propofol and fentanyl. Remained severely hypoxemic on 100% FiO2, PEEP12, chest x-ray shows bibasilar infiltrates. Flagyl added. We'll give 1 dose of vancomycin-Adjust antibiotics according to cultures. Patient super morbid obesity may prevent Prone therapy 03/28: Remains hypoxic but ABG shows marginal improvement in oxygenation. WBC increasing 20.1 today. Start vancomycin scheduled. 03/29: Oxygenation is slightly improved. FiO2 reduced to 50% today. Chest x- ray remains unchanged. On sedation hold patient does wake up and follow commands. WBC count remains at 20 03/30 No acute events overnight. Sedated with Diprivan and Fentanyl. Had T: 100.1 at 4 am. WBC trending down 15.9 today from 20. 03/31 Patient remains sedated with Diprivan, Fentanyl and intubated. Tmax 100.1. Patient required increase O2 overnight now on ACV with PEEP: 12 and FIO2 70%. 04/01: Tmax 99.7. No bowel movement since admission. Patient has bowel sounds. Arousable on the ventilator. We'll attempt prone the patient paralyzed to increase oxygenation status. 04/02: MAXIMUM TEMPERATURE 100.9. Currently 97.7. 5 10 cc stools overnight. Placed on Roto prone yesterday. Saturations currently 94% on Flolan. Diuresed overnight. Creatinine still within normal limits. 04/03: Tmax 101. Currently 99.1. Positive BM. Did not tolerate not being unprone this AM. Saturations much improved prone. Tolerating tube feeding. Subjective 04/04: Tmax 100.8. Currently 98.8. +2 L past 24 hours. Attempt to on prone today. Positive BM. C. difficile negative. Remains paralyzed. 04/05: Remains sedated, orally intubated on neuromuscular blockade on mechanical ventilation. Remains on Rota prone bed. On insulin drip. 04/06: Remains sedated, orally intubated on neuromuscular blockade, on mechanical ventilation. Remains on Rota prone bed. Insulin drip continues. 04/07 Patient remains on Rotoprone bed sedated with Diprivan, Versed, Fentanyl in addition patient is on Nimbex. Afebrile. On Insulin drip 5u/hr. 04/08 Patient remains sedated and intubated and on Nimbex. Off insulin drip. On PRVC/AC with RR 15, TV 550, IT: 1.65, PEEP: 15 and FIO2 100%. T: 100.2 at 4 am. 04/09 Patient is sedated, intubated and remains on neuromuscular blockade. Vent setting unchanged. afebrile. 04/10 Patient remains sedated and intubated and on Nimbex. On PRVC/AC, RR 15, TV 500, PEEP: 15, FIO2 90%, IT:1.65, on Flolan drip. Remains on Rotoprone bed. 04/11 minimal improvement in oxygenation, FiO2 now at 75 - continue to improve oxygenation, worsening CXR 2/10/11 continue to improve oxygenation DC'd prone position last night 04/14- improving oxygenation, Nimbex discontinued as well as prone position 04/16 Patient is sedated with Versed and Fentanyl and intubated. Off rotoprone bed. On PRVC/AC RR 15, TV 550, IT 1.65, PEEP:15, FIO2 50%. 04/17 Patient remains sedated with Versed and Fentanyl. Afebrile, tolerating tube feeds 04/18 No acute events overnight Sedated and intubated. Afebrile. On PRVC/AC RR 15 , TV 550, IT 1.65, PEEP:15, FIO2 60% 04/19: Spiking fever up to 101, pancultured and 1 dose of vancomycin given by ID. On weaning doses of Flolan. FiO2 down to 50% I have reduced PEEP to 14. Remains critically ill 04/20: No fever. Sputum cx with Staph -S pending. Fio2 50% PEEP remains at 14. TV increased to 650 to improve lung recruitment. On weaning dose of Flolan-DC after current bag 04/21: Afebrile. Hyponatremia resolving, the patient will be placed on free water flushes. Objective Vital Signs Date Time Temp Pulse Resp B/P Pulse Ox O2 Delivery O2 Flow Rate FiO2 04/21/16 15:37 93 50 04/21/16 14:00 74 04/21/16 12:00 98.2 15 123/73 Intake and Output 04/20/16 04/20/16 04/21/16 08:00 16:00 00:00 Intake Total 691 ml 968 ml 1209 ml Output Total 750 ml 925 ml 1100 ml Balance -59 ml 43 ml 109 ml Result Diagram: 04/21/16 0540 04/21/16 0540 Other Results Microbiology Date/Time Procedure Status Source Growth 04/19/16 21:30 Gram Stain - Final Complete Sputum Endotracheal 04/19/16 21:30 Sputum Culture - Final Complete Staphylococcus Aureus Imaging Last Impressions Chest X-Ray 04/16/16 0600 Signed Impressions: Service Date/Time: Saturday, April 16, 2016 03:58 - CONCLUSION: 1. Cardiomegaly. Bilateral lower lobe atelectasis versus pneumonia. There has been no significant change when compared to the prior exam. Kyaw Rojo MD Abdomen X-Ray 03/31/16 0000 Signed Impressions: Service Date/Time: Thursday, March 31, 2016 09:58 - CONCLUSION: Benign abdomen. Rodrigo Martinez MD Chest CT 03/28/16 0836 Signed Impressions: Service Date/Time: Monday, March 28, 2016 09:57 - CONCLUSION: Development areas of air bronchograms and consolidation more prominent in the right and left posterior basilar segments of the lower lobes. ET tube above the chanelle. Bernard Hartman MD CT Angiography 03/24/16 1121 Signed Impressions: Service Date/Time: Thursday, March 24, 2016 12:47 - CONCLUSION: 1. There is respiratory motion artifact but no PE is identified through most of the segmental level pulmonary arteries. 2. Mildly enlarged main pulmonary artery may indicate pulmonary arterial hypertension. 3. 11 mm left lower lobe noncalcified pulmonary nodule. Suggest correlation with any prior imaging studies that could confirm longer-term stability. If none are available consider short-term followup noncontrast chest CT in approximately 3 months. Ubaldo Rodas MD Objective Remarks GENERAL: 50-year-old male, critically ill. Orally intubated on mechanical ventilation, on sedation SKIN: Seborrheic dermatitis of the face HEAD: Atraumatic. Normocephalic. EYES: Pupils equal round and slightly reactive about 3 millimeters bilaterally. ENT: NG tube in place. Orotracheally intubated NECK: Very large neck. Trachea midline. IJ clean dry and intact CARDIOVASCULAR: Distant heart sounds. RRR. S1, S2. No S4. Without murmur RESPIRATORY: Orally intubated on mechanical ventilation, Breath sounds equal bilaterally. Diminished breath sounds due to body habitus. GASTROINTESTINAL: Abdomen soft, obese, nontender. Severe central obesity MUSCULOSKELETAL: Extremities with trace to 1+ nonpitting bilateral lower extremity edema. NEUROLOGICAL: Intubated and sedated on the ventilator. Opens eyes appears to track minimally. +ve cough and gag. No withdrawal of extremities Urinary Catheter: Yes Becker insert reason: Measure Accurate Output Date of Insertion: Apr 02, 2016 A/P Assessment and Plan Assessment: 1)Acute hypoxemic respiratory failure 2)ARDS 3)Obstructive sleep apnea/ Obesity hypoventilation syndrome 4)Staph aureus pneumonia 5)Severe protein calorie malnutrition 6)Diabetes mellitus 7)Leukocytosis Plan: Neuro: On Fentanyl and Versed infusion for sedation. Daily sedation vacation when appropriate PEEP< 8, FIO2.50 Pulm: On PRVC/AC RR 15, TV 650, IT:1.65, PEEP:14, FIO2 50% Continue with vent support keep sat >90%. CXR in am Bronchodilators, ICU vent bundle. Will need trach once oxygen requirements, PEEP improved. Flolan off on Solumederol 40mg daily CV:Monitor HR and BP keep MAP>65mmHg : Monitor renal function, I/O's, electrolytes replacement per protocol. On Lasix 20mg Q8. K replacement . Scheduled K supplement daily Hypernatremia, resolved. Continue free water flushes 200 cc every 6 hours GI: On Glucerna 1.5@45ml/hr, Protonix 40mg daily On Reglan 10mg Q8,Senna, Colace. ID: Off ABX per ID (Levaquin stopped 04/16) Monitor for signs of infections ( Fever, WBC) Patient spiked fever today at 04/19/16. Single dose of vancomycin given . Sputum-staph aureus blood and urine cultures sent. Continue vanc until cx back Heme: Monitor CBC Endo: SSI for glycemic control ( high scale), Levemir insulin 45U Q12 DVT, GI prophylaxis -Bilateral lower extremity SCDs. IV Protonix 40 mg daily. Lovenox 40 mg sq BID LINES: -PICC line placed 04/15 Critical Care: This patient remains critically ill with one or more organ systems which are or may become a threat to life. I have spent in excess of 37 minutes discontinuously in the care and management of this patient. This time is exclusive of procedures, and includes, but is not limited to, evaluation of the patient, review of the medical record, discussions with family, consultants, nursing staff, or respiratory therapy, and documentation in the medical record. Dispo: Discussed with [employer]S MAKEUP ARTIST at bedside. Physician Lourdes Josue MD Apr 21, 2016 17:09
[2016-04-21] MEDS: ARTIFICIAL TEARS OPTH SOLN 15 ML BTL EACH EYE SCH (17:30)
[2016-04-21 17:46] LABS: BLOOD GAS CARBOXYHEMOGLOBIN 1.3 % (0-4); BLOOD GAS HCO3 26 mmol/L (22-26); BLOOD GAS METHEMOGLOBIN 1.1 % (0-2); BLOOD GAS O2 HGB SATURATION 94 % (90-100); BLOOD GAS OXYGEN CONTENT 17.4 Vol % (12.0-20.0); BLOOD GAS PCO2 35 mmHg (38-42); BLOOD GAS PO2 84 mmHg (61-120); BLOOD GAS TOTAL HGB 13.2 G/DL (12.0-16.0); CRITICAL VALUE NO; OXYGEN DEVICE VENTILATOR; TEMP CORR TO 98.6
[2016-04-21 17:48] LABS: DRAW SITE RT RADIAL; FIO2 50 %; NUMBER OF ARTERIAL PUNCTURES 1; STAT NO; ULNAR PULSE PRESENT
[2016-04-21] MEDS: POTASSIUM CHLORIDE 25 MEQ EFFERVESCENT TAB PO SCH (20:34)
[2016-04-22] VITALS (19 sets, daily range): BP systolic 98–108; BP diastolic 57–68; PULSE 70–85; RESP 15; TEMP 97.9–98.7; O2SAT 93–100
[2016-04-22] MEDS: FUROSEMIDE 20 MG/2 ML VIAL IV PUSH SCH ×4 (00:08→23:33)
[2016-04-22] MEDS: INSULIN NovoLIN REGULAR SUPPLEMENTAL SCALE SQ SCH ×5 (00:08→23:33)
[2016-04-22] MEDS: ARTIFICIAL TEARS OPTH SOLN 15 ML BTL EACH EYE SCH ×7 (00:08→21:20)
[2016-04-22] MEDS: fentaNYL 2,500 MCG/NS 250 ML IV SCH ×2 (02:11→12:13)
[2016-04-22] MEDS: MIDAZOLAM 100 MG/ML INJ 100 ML IV SCH ×2 (02:12→12:14)
[2016-04-22 05:32] LABS: BLOOD GAS BASE EXCESS 3.1 mmol/L (-2-2); BLOOD GAS CARBOXYHEMOGLOBIN 1.1 % (0-4); BLOOD GAS HCO3 27 mmol/L (22-26); BLOOD GAS METHEMOGLOBIN 1.1 % (0-2); BLOOD GAS O2 HGB SATURATION 97 % (90-100); BLOOD GAS OXYGEN CONTENT 19.1 Vol % (12.0-20.0); BLOOD GAS PCO2 36 mmHg (38-42); BLOOD GAS PO2 153 mmHg (61-120); BLOOD GAS TOTAL HGB 13.9 G/DL (12.0-16.0); CRITICAL VALUE NO; DRAW SITE RT BRACHIAL; FIO2 50 %; NUMBER OF ARTERIAL PUNCTURES 1; OXYGEN DEVICE VENTILATOR; STAT NO; TEMP CORR TO 98.6; VENT SETTINGS PRVC/AC
[2016-04-22] MEDS: ENOXAPARIN SODIUM 40 MG/0.4 ML SYRINGE SQ SCH ×2 (05:36→17:53)
[2016-04-22] MEDS: METOCLOPRAMIDE HCL 10 MG/2 ML VIAL IV PUSH SCH ×3 (05:36→21:21)
[2016-04-22] MEDS: VANCOMYCIN INJ 2,000 MG in SODIUM CHLORID 0.9% 500 ML INJ 500 ML IV SCH ×2 (05:36→17:52)
[2016-04-22] MEDS ORDERED: PHARMACY ORDERED LAB XX ONE (05:45)
[2016-04-22 06:54] LABS: MEAN CELL VOLUME 83.5 FL (80.0-100.0); MEAN CORPUSCULAR HEMOGLOBIN 26.9 PG (27.0-34.0); MEAN CORPUSCULAR HGB CONC 32.2 % (32.0-36.0); PLATELET COUNT 167 TH/MM3 (150-450); RED BLOOD COUNT 4.79 MIL/MM3 (4.50-5.90); RED CELL DISTRIBUTION WIDTH 15.2 % (11.6-17.2); REVIEW FLAG FINAL; WHITE BLOOD COUNT 13.3 TH/MM3 (4.0-11.0)
[2016-04-22 07:17] LABS: MAGNESIUM 2.5 MG/DL (1.5-2.5)
[2016-04-22] MEDS: methylPREDNISolone SOD SUCC 40 MG/1 ML VIAL IV PUSH SCH (07:40)
[2016-04-22] MEDS: BETAMETHASONE/CLOTRIMAZOLE CREAM 15 GM TOPICAL SCH ×2 (07:41→19:44)
[2016-04-22] MEDS: SENNOSIDES SYRUP 8.8 MG/5 ML CUP PO/TUBE SCH ×2 (07:41→19:44)
[2016-04-22] MEDS: ARTIFICIAL TEARS OPTH OINT 3.5 APPLIC/3.5 GM TUBO EACH EYE SCH ×2 (07:41→19:44)
[2016-04-22] MEDS: INSULIN DETEMIR 100 UNITS/ML VIAL SQ SCH ×2 (07:41→19:45)
[2016-04-22] MEDS: SODIUM CHLORIDE 0.9% FLUSH 5 ML FLUSH IVF SCH (07:41)
[2016-04-22] MEDS: DOCUSATE SODIUM 100 MG/10 ML UDC PO SCH ×2 (07:41→19:44)
[2016-04-22] MEDS: POTASSIUM CHLORIDE 25 MEQ EFFERVESCENT TAB PO SCH ×2 (07:41→19:44)
[2016-04-22] MEDS: CHLORHEXIDINE 0.12% (ORAL KIT) 15 ML CUP MT SCH ×2 (07:42→19:57)
[2016-04-22] MEDS: BENEPROTEIN POWDER 1 PACK G-TUBE SCH ×3 (07:42→17:53)
[2016-04-22] MEDS: SODIUM CHLORIDE 0.9% FLUSH 5 ML FLUSH IVF PRN ×2 (07:42)
[2016-04-22] MEDS: LACTOBACILLUS ACIDOPHILUS TAB PO SCH ×3 (07:46→17:52)
[2016-04-22] MEDS: POTASSIUM CHLOR 40 MEQ PREMIX 100 ML IV PRN ×2 (07:46→10:06)
[2016-04-22 12:31] LABS: BLOOD GAS BASE EXCESS 2.1 mmol/L (-2-2); BLOOD GAS HCO3 26 mmol/L (22-26); BLOOD GAS METHEMOGLOBIN 1.2 % (0-2); BLOOD GAS O2 HGB SATURATION 97 % (90-100); BLOOD GAS OXYGEN CONTENT 19.1 Vol % (12.0-20.0); BLOOD GAS PCO2 40 mmHg (38-42); BLOOD GAS PO2 156 mmHg (61-120); BLOOD GAS TOTAL HGB 13.9 G/DL (12.0-16.0); CRITICAL VALUE NO; OXYGEN DEVICE VENTILATOR; TEMP CORR TO 98.6
[2016-04-22 12:32] LABS: DRAW SITE RT RADIAL; FIO2 80 %; NUMBER OF ARTERIAL PUNCTURES 1; STAT YES; ULNAR PULSE PRESENT
--- NOTE | 2016-04-22 13:04 | RADRPT ---
EXAM DATE/TIME: 04/22/2016 12:05 [facility] COMPARISON: CHEST SINGLE AP, April 21, 2016, 3:09. INDICATIONS : Shortness of breath. MEDICAL HISTORY : Diabetes mellitus type II. SURGICAL HISTORY : None. ENCOUNTER: Initial ACUITY: 1 day PAIN SCORE: Non-responsive. LOCATION: Bilateral chest FINDINGS: Single AP view of the chest. Endotracheal tube, left subclavian central venous catheter, and nasogast esther tube are in place. Decrease in bilateral perihilar/basilar lung opacity. Cardiac silhouette is mi ldly prominent and unchanged. No evidence of pleural effusion or pneumothorax. CONCLUSION: Decrease bilateral pulmonary opacity likely worsening decreased pulmonary edema. Franko Trejo MD on April 22, 2016 at 13:01 Board Certified Radiologist. This report was verified electronically.
--- NOTE | 2016-04-22 13:07 | HHI.PR ---
Subjective Remarks ON THE VENT SEDATED FIO2 AT 80% Objective Vital Signs Date Time Temp Pulse Resp B/P Pulse Ox O2 Delivery O2 Flow Rate FiO2 04/22/16 11:09 93 100 04/22/16 10:00 85 04/22/16 08:00 40 04/22/16 08:00 98.0 76 15 108/68 100 04/22/16 08:00 76 04/22/16 07:54 98 40 04/22/16 06:00 40 04/22/16 06:00 75 04/22/16 05:46 100 40 04/22/16 04:09 98 50 04/22/16 04:00 71 04/22/16 04:00 50 04/22/16 04:00 97.9 71 15 98/60 97 04/22/16 02:00 70 04/22/16 01:10 97 50 04/22/16 00:00 50 04/22/16 00:00 98.4 71 15 104/61 96 04/22/16 00:00 71 04/21/16 22:12 95 50 04/21/16 22:00 75 04/21/16 20:00 50 04/21/16 20:00 99.4 77 15 114/63 97 04/21/16 20:00 77 04/21/16 19:50 95 50 04/21/16 18:00 80 04/21/16 16:00 98.7 75 15 106/61 92 04/21/16 16:00 50 04/21/16 16:00 75 04/21/16 15:37 93 50 04/21/16 14:00 74 I/O 04/21/16 04/21/16 04/21/16 04/22/16 04/22/16 04/22/16 07:00 15:00 23:00 07:00 15:00 23:00 Intake Total 663 ml 1469 ml 893 ml 583 ml Output Total 1000 ml 1250 ml 1450 ml 1025 ml 0 ml Balance -337 ml 219 ml -557 ml -442 ml 0 ml IV Total 275 ml 914 ml 488 ml 162 ml Tube Feeding 338 ml 315 ml 255 ml 371 ml Other 50 ml 240 ml 150 ml 50 ml Output Urine Total 1000 ml 1150 ml 1450 ml 1025 ml Stool Total 100 ml 0 ml Tube Feeding Residual Discard 0 ml 0 ml 0 ml 0 ml Result Diagram: 04/22/1630 04/22/16529 Objective Remarks GENERAL: SKIN: Warm and dry. HEAD: Atraumatic. Normocephalic. EYES: Pupils equal and round. No scleral icterus. No injection or drainage. ENT: No nasal bleeding or discharge. Mucous membranes pink and moist. NECK: Trachea midline. No JVD. CARDIOVASCULAR: Regular rate and rhythm. RESPIRATORY: No accessory muscle use. Clear to auscultation. Breath sounds equal bilaterally. GASTROINTESTINAL: Abdomen soft, non-tender, nondistended. Hepatic and splenic margins not palpable. MUSCULOSKELETAL: Extremities without clubbing, cyanosis, or edema. No obvious deformities. NEUROLOGICAL: Awake and alert. No obvious cranial nerve deficits. Motor grossly within normal limits. Five out of 5 muscle strength in the arms and legs. Normal speech. PSYCHIATRIC: Appropriate mood and affect; insight and judgment normal. Assessment and Plan Assessment and Plan RESPIRATORY FAILURE SEPSIS ARDS JACOB/CSA PLAN VENT SUPPORT FIO2 INCREASED TO 0.8 PULM TOILET WEAN TOLERATED. CHECK ABG, CXRAY Orlando Perry MD Apr 22, 2016 13:06
--- NOTE | 2016-04-22 17:25 | HHI.CCPN ---
Subjective Remarks/Hospital Course Patient is a 50 years old obese male with past medical history significant for undiagnosed sleep apnea, super morbid obesity, type 2 diabetes was brought to the emergency department on 03/24/16 after feeling light headed and dizzy. On presentation here was found to be hypoxemic and ABG showed severe hypoxemia and hypercarbia. For a recent driving physical he was diagnosed with low oxygen saturations. Patient's oxygen saturation the ED was in the low 80s, which was confirmed on ABG with a oxygen saturation of 78% and PO2 of 46. CTA negative for PE. Patient was initiated on BiPAP therapy with consult to pulmonary Dr. Crane. His oxygenation improved but he continued to be hypercapnic. Today a.m. on nasal cannula his pH was 7.26 and PCO2 was increased at 99, patient was somnolent was placed back on BiPAP and repeat ABG at noon showed pH 7.26 PCO2 98 and pO2 70. This was on 16 BiPAP with FiO2 50%. Critical care was consulted. On my evaluation patient is somnolent but wakes up easily. I reduced the PEEP on BiPAP from 12-7 to facilitate better ventilation. A repeat ANG showed only minimal improvement, so decision made to intubate patient. Glidescope with #4 blade was used. Only propofol was used for induction. Initially I had a Grade 1-2 view, but I was unable to pass tube through the vocal cord to trachea in two attempts. Tube slipped out of Laryngeal opening both times. Dr Garrett intubated patient after NM paralysis with succinylcholine. Post intubation ABG showed improvement in hypercapnia and oxygenation. 03/27/16: Patient remains intubated heavily sedated with propofol and fentanyl. Remained severely hypoxemic on 100% FiO2, PEEP12, chest x-ray shows bibasilar infiltrates. Flagyl added. We'll give 1 dose of vancomycin-Adjust antibiotics according to cultures. Patient super morbid obesity may prevent Prone therapy 03/28: Remains hypoxic but ABG shows marginal improvement in oxygenation. WBC increasing 20.1 today. Start vancomycin scheduled. 03/29: Oxygenation is slightly improved. FiO2 reduced to 50% today. Chest x- ray remains unchanged. On sedation hold patient does wake up and follow commands. WBC count remains at 20 03/30 No acute events overnight. Sedated with Diprivan and Fentanyl. Had T: 100.1 at 4 am. WBC trending down 15.9 today from 20. 03/31 Patient remains sedated with Diprivan, Fentanyl and intubated. Tmax 100.1. Patient required increase O2 overnight now on ACV with PEEP: 12 and FIO2 70%. 04/01: Tmax 99.7. No bowel movement since admission. Patient has bowel sounds. Arousable on the ventilator. We'll attempt prone the patient paralyzed to increase oxygenation status. 04/02: MAXIMUM TEMPERATURE 100.9. Currently 97.7. 5 10 cc stools overnight. Placed on Roto prone yesterday. Saturations currently 94% on Flolan. Diuresed overnight. Creatinine still within normal limits. 04/03: Tmax 101. Currently 99.1. Positive BM. Did not tolerate not being unprone this AM. Saturations much improved prone. Tolerating tube feeding. Subjective 04/04: Tmax 100.8. Currently 98.8. +2 L past 24 hours. Attempt to on prone today. Positive BM. C. difficile negative. Remains paralyzed. 04/05: Remains sedated, orally intubated on neuromuscular blockade on mechanical ventilation. Remains on Rota prone bed. On insulin drip. 04/06: Remains sedated, orally intubated on neuromuscular blockade, on mechanical ventilation. Remains on Rota prone bed. Insulin drip continues. 04/07 Patient remains on Rotoprone bed sedated with Diprivan, Versed, Fentanyl in addition patient is on Nimbex. Afebrile. On Insulin drip 5u/hr. 04/08 Patient remains sedated and intubated and on Nimbex. Off insulin drip. On PRVC/AC with RR 15, TV 550, IT: 1.65, PEEP: 15 and FIO2 100%. T: 100.2 at 4 am. 04/09 Patient is sedated, intubated and remains on neuromuscular blockade. Vent setting unchanged. afebrile. 04/10 Patient remains sedated and intubated and on Nimbex. On PRVC/AC, RR 15, TV 500, PEEP: 15, FIO2 90%, IT:1.65, on Flolan drip. Remains on Rotoprone bed. 04/11 minimal improvement in oxygenation, FiO2 now at 75 - continue to improve oxygenation, worsening CXR 04/13/10 continue to improve oxygenation DC'd prone position last night 04/14- improving oxygenation, Nimbex discontinued as well as prone position 04/16 Patient is sedated with Versed and Fentanyl and intubated. Off rotoprone bed. On PRVC/AC RR 15, TV 550, IT 1.65, PEEP:15, FIO2 50%. 04/17 Patient remains sedated with Versed and Fentanyl. Afebrile, tolerating tube feeds 04/18 No acute events overnight Sedated and intubated. Afebrile. On PRVC/AC RR 15 , TV 550, IT 1.65, PEEP:15, FIO2 60% 04/19: Spiking fever up to 101, pancultured and 1 dose of vancomycin given by ID. On weaning doses of Flolan. FiO2 down to 50% I have reduced PEEP to 14. Remains critically ill 04/20: No fever. Sputum cx with Staph -S pending. Fio2 50% PEEP remains at 14. TV increased to 650 to improve lung recruitment. On weaning dose of Flolan-DC after current bag 04/21:Afebrile. Hyponatremia resolving, the patient will be placed on free water flushes. 04/22:The patient had an episode of acute desaturation requiring FiO2 increased to 90%. Stat chest x-ray stat ABG aggressive pulmonary toileting and suctioning , resolution of symptoms FiO2 now 55%. ABGs within normal limits. Objective Vital Signs Date Time Temp Pulse Resp B/P Pulse Ox O2 Delivery O2 Flow Rate FiO2 04/22/16 14:32 93 55 04/22/16 14:00 82 04/22/16 12:00 98.2 15 99/58 Intake and Output 04/21/16 04/21/16 04/22/16 08:00 16:00 00:00 Intake Total 663 ml 1469 ml 893 ml Output Total 1000.0 ml 1250.0 ml 1450.0 ml Balance -337.0 ml 219.0 ml -557.0 ml Result Diagram: 04/22/16 0530 04/22/16 0530 Other Results Microbiology Date/Time Procedure Status Source Growth 04/19/16 21:30 Gram Stain - Final Complete Sputum Endotracheal 04/19/16 21:30 Sputum Culture - Final Complete Staphylococcus Aureus Laboratory Tests Test 04/21/16 04/22/16 04/22/16 17:35 05:20 12:20 Blood Gas Puncture Site RT RADIAL RT BRACHIAL RT RADIAL Blood Gas Patient Temperature 98.6 98.6 98.6 Blood Gas HCO3 26 mmol/L 27 mmol/L 26 mmol/L (22-26) (22-26) (22-26) Blood Gas Base Excess 3.0 mmol/L 3.1 mmol/L 2.1 mmol/L (-2-2) (-2-2) (-2-2) Blood Gas Oxygen Saturation 94 % (90-100) 97 % (90-100) 97 % (90-100) Arterial Blood pH 7.49 7.48 7.43 (7.380-7.420) (7.380-7.420) (7.380-7.420) Arterial Blood Partial 35 mmHg (38-42) 36 mmHg (38-42) 40 mmHg (38-42) Pressure CO2 Arterial Blood Partial 84 mmHg 153 mmHg 156 mmHg Pressure O2 (61-120) (61-120) (61-120) Arterial Blood Oxygen Content 17.4 Vol % 19.1 Vol % 19.1 Vol % (12.0-20.0) (12.0-20.0) (12.0-20.0) Arterial Blood 1.3 % (0-4) 1.1 % (0-4) 1.0 % (0-4) Carboxyhemoglobin Arterial Blood Methemoglobin 1.1 % (0-2) 1.1 % (0-2) 1.2 % (0-2) Blood Gas Hemoglobin 13.2 G/DL 13.9 G/DL 13.9 G/DL (12.0-16.0) (12.0-16.0) (12.0-16.0) Oxygen Delivery Device VENTILATOR VENTILATOR VENTILATOR Blood Gas Ventilator Setting PRVC/AC Blood Gas Inspired Oxygen 50 % 50 % 80 % Imaging Last Impressions Chest X-Ray 04/16/16 0600 Signed Impressions: Service Date/Time: Saturday, April 16, 2016 03:58 - CONCLUSION: 1. Cardiomegaly. Bilateral lower lobe atelectasis versus pneumonia. There has been no significant change when compared to the prior exam. Kyaw Rojo MD Abdomen X-Ray 03/31/16 0000 Signed Impressions: Service Date/Time: Thursday, March 31, 2016 09:58 - CONCLUSION: Benign abdomen. Rodrigo Martinez MD Chest CT 03/28/16 0836 Signed Impressions: Service Date/Time: Monday, March 28, 2016 09:57 - CONCLUSION: Development areas of air bronchograms and consolidation more prominent in the right and left posterior basilar segments of the lower lobes. ET tube above the chanelle. Bernard Hartman MD CT Angiography 03/24/16 1121 Signed Impressions: Service Date/Time: Thursday, March 24, 2016 12:47 - CONCLUSION: 1. There is respiratory motion artifact but no PE is identified through most of the segmental level pulmonary arteries. 2. Mildly enlarged main pulmonary artery may indicate pulmonary arterial hypertension. 3. 11 mm left lower lobe noncalcified pulmonary nodule. Suggest correlation with any prior imaging studies that could confirm longer-term stability. If none are available consider short-term followup noncontrast chest CT in approximately 3 months. Ubaldo Rodas MD Objective Remarks GENERAL: 50-year-old male, critically ill. Orally intubated on mechanical ventilation, on sedation SKIN: Seborrheic dermatitis of the face HEAD: Atraumatic. Normocephalic. EYES: Pupils equal round and slightly reactive about 3 millimeters bilaterally. ENT: NG tube in place. Orotracheally intubated NECK: Very large neck. Trachea midline. IJ clean dry and intact CARDIOVASCULAR: Distant heart sounds. RRR. S1, S2. No S4. Without murmur RESPIRATORY: Orally intubated on mechanical ventilation, Breath sounds equal bilaterally. Diminished breath sounds due to body habitus. GASTROINTESTINAL: Abdomen soft, obese, nontender. Severe central obesity MUSCULOSKELETAL: Extremities with trace to 1+ nonpitting bilateral lower extremity edema. NEUROLOGICAL: Intubated and sedated on the ventilator. Opens eyes appears to track minimally. +ve cough and gag. No withdrawal of extremities Date of Insertion: Apr 02, 2016 A/P Assessment and Plan Assessment: 1)Acute hypoxemic respiratory failure 2)ARDS 3)Obstructive sleep apnea/ Obesity hypoventilation syndrome 4)Staph aureus pneumonia 5)Severe protein calorie malnutrition 6)Diabetes mellitus 7)Leukocytosis Plan: Neuro: On Fentanyl and Versed infusion for sedation. Daily sedation vacation when appropriate PEEP< 8, FIO2.50 Pulm: On PRVC/AC RR 15, TV 650, IT:1.65, PEEP:14, FIO2 50% Continue with vent support keep sat >90%. CXR in am Will continue to decrease FiO2 to maintain a PaO2 greater than 60 Bronchodilators, ICU vent bundle. Will need trach once oxygen requirements, PEEP improved. Flolan off on Solumederol 40mg daily CV:Monitor HR and BP keep MAP>65mmHg : Monitor renal function, I/O's, electrolytes replacement per protocol. On Lasix 20mg Q8. K replacement . Scheduled K daily GI: On Glucerna 1.5@45ml/hr, Protonix 40mg daily On Reglan 10mg Q8, Senna, Colace. ID: Off ABX per ID (Levaquin stopped 04/16) Monitor for signs of infections ( Fever, WBC) Patient spiked fever today at 04/19/16. Single dose of vancomycin given . Sputum-staph aureus blood and urine cultures sent. Continue vanc until cx back Heme: Monitor CBC Endo: SSI for glycemic control ( high scale), Levemir insulin 45U Q12 DVT, GI prophylaxis -Bilateral lower extremity SCDs. IV Protonix 40 mg daily. Lovenox 40 mg sq BID LINES: -PICC line placed 04/15 Critical Care: This patient remains critically ill with one or more organ systems which are or may become a threat to life. I have spent in excess of 30 minutes discontinuously in the care and management of this patient. This time is exclusive of procedures, and includes, but is not limited to, evaluation of the patient, review of the medical record, discussions with family, consultants, nursing staff, or respiratory therapy, and documentation in the medical record. Physician Lourdes Josue MD Apr 22, 2016 17:25
[2016-04-22] MEDS: FREE WATER G-TUBE SCH ×2 (17:53→23:33)
[2016-04-22] MEDS: PANTOPRAZOLE SODIUM 40 MG VIAL IV PUSH SCH (17:53)
[2016-04-23] VITALS (18 sets, daily range): BP systolic 101–158; BP diastolic 62–98; PULSE 68–120; RESP 15–16; TEMP 98–99.5; O2SAT 93–100
[2016-04-23] MEDS: ARTIFICIAL TEARS OPTH SOLN 15 ML BTL EACH EYE SCH ×7 (03:12→23:39)
[2016-04-23] MEDS: fentaNYL 2,500 MCG/NS 250 ML IV SCH ×2 (03:13→17:49)
[2016-04-23] MEDS: MIDAZOLAM 100 MG/ML INJ 100 ML IV SCH ×2 (03:13→21:23)
--- NOTE | 2016-04-23 05:07 | RADRPT ---
EXAM DATE/TIME: 04/23/2016 03:46 [facility] COMPARISON: CHEST SINGLE AP, April 22, 2016, 12:05. INDICATIONS : Shortness of breath, possible pulmonary disease. MEDICAL HISTORY : Diabetes mellitus type II. SURGICAL HISTORY : None. ENCOUNTER: Subsequent ACUITY: 2 days PAIN SCORE: Non-responsive. LOCATION: Bilateral chest FINDINGS: ET tube and left PICC line are well placed. The heart size is normal. Increased density at the left b ase with silhouetting the left hemidiaphragm. There some mild increased density in the right infrahil ar region. CONCLUSION: Bilateral areas of consolidation or atelectasis being worse on the left. Ubaldo Coombs MD on April 23, 2016 at 5:05 Board Certified Radiologist. This report was verified electronically.
[2016-04-23] MEDS: METOCLOPRAMIDE HCL 10 MG/2 ML VIAL IV PUSH SCH ×3 (05:13→20:33)
[2016-04-23] MEDS: VANCOMYCIN INJ 2,000 MG in SODIUM CHLORID 0.9% 500 ML INJ 500 ML IV SCH ×2 (05:13→17:47)
[2016-04-23] MEDS: ENOXAPARIN SODIUM 40 MG/0.4 ML SYRINGE SQ SCH ×2 (05:14→17:47)
[2016-04-23] MEDS: INSULIN NovoLIN REGULAR SUPPLEMENTAL SCALE SQ SCH ×4 (05:14→23:38)
[2016-04-23] MEDS: FREE WATER G-TUBE SCH ×4 (05:14→23:38)
[2016-04-23 06:15] LABS: HEMATOCRIT 39.8 % (39.0-51.0); MEAN CELL VOLUME 83.7 FL (80.0-100.0); MEAN CORPUSCULAR HEMOGLOBIN 27.7 PG (27.0-34.0); MEAN CORPUSCULAR HGB CONC 33.1 % (32.0-36.0); PLATELET COUNT 168 TH/MM3 (150-450); RED BLOOD COUNT 4.75 MIL/MM3 (4.50-5.90); RED CELL DISTRIBUTION WIDTH 15.5 % (11.6-17.2); REVIEW FLAG FINAL; WHITE BLOOD COUNT 14.1 TH/MM3 (4.0-11.0)
[2016-04-23 06:16] LABS: BLOOD GAS CARBOXYHEMOGLOBIN 0.9 % (0-4); BLOOD GAS HCO3 27 mmol/L (22-26); BLOOD GAS METHEMOGLOBIN 1.1 % (0-2); BLOOD GAS O2 HGB SATURATION 95 % (90-100); BLOOD GAS OXYGEN CONTENT 21.5 Vol % (12.0-20.0); BLOOD GAS PCO2 43 mmHg (38-42); BLOOD GAS PO2 94 mmHg (61-120); BLOOD GAS TOTAL HGB 16.1 G/DL (12.0-16.0); CRITICAL VALUE NO; OXYGEN DEVICE VENTILATOR; TEMP CORR TO 98.6
[2016-04-23 06:17] LABS: VENT SETTINGS PRVC/AC
[2016-04-23 06:18] LABS: DRAW SITE LT RADIAL; FIO2 50 %; NUMBER OF ARTERIAL PUNCTURES 1; STAT NO; ULNAR PULSE PRESENT
[2016-04-23 07:02] LABS: BICARBONATE 29.2 MEQ/L (21.0-32.0); MAGNESIUM 2.4 MG/DL (1.5-2.5); POTASSIUM 3.1 MEQ/L (3.5-5.1)
[2016-04-23] MEDS: POTASSIUM CHLORIDE 25 MEQ EFFERVESCENT TAB PO SCH ×2 (08:29→20:32)
[2016-04-23] MEDS: SENNOSIDES SYRUP 8.8 MG/5 ML CUP PO/TUBE SCH ×2 (08:29→20:32)
[2016-04-23] MEDS: LACTOBACILLUS ACIDOPHILUS TAB PO SCH ×3 (08:29→17:47)
[2016-04-23] MEDS: DOCUSATE SODIUM 100 MG/10 ML UDC PO SCH ×2 (08:29→20:32)
[2016-04-23] MEDS: INSULIN DETEMIR 100 UNITS/ML VIAL SQ SCH ×2 (08:29→20:33)
[2016-04-23] MEDS: POTASSIUM CHLOR 40 MEQ PREMIX 100 ML IV PRN ×2 (08:31→12:14)
[2016-04-23] MEDS: FUROSEMIDE 20 MG/2 ML VIAL IV PUSH SCH ×2 (08:31→20:32)
[2016-04-23] MEDS: CHLORHEXIDINE 0.12% (ORAL KIT) 15 ML CUP MT SCH ×2 (08:32→20:31)
[2016-04-23] MEDS: SODIUM CHLORIDE 0.9% FLUSH 5 ML FLUSH IVF SCH (08:32)
[2016-04-23] MEDS: methylPREDNISolone SOD SUCC 40 MG/1 ML VIAL IV PUSH SCH (08:32)
[2016-04-23] MEDS: ARTIFICIAL TEARS OPTH OINT 3.5 APPLIC/3.5 GM TUBO EACH EYE SCH ×2 (08:32→20:31)
[2016-04-23] MEDS: BENEPROTEIN POWDER 1 PACK G-TUBE SCH ×3 (08:32→17:46)
[2016-04-23] MEDS: BETAMETHASONE/CLOTRIMAZOLE CREAM 15 GM TOPICAL SCH ×2 (08:33→20:33)
--- NOTE | 2016-04-23 09:55 | HHI.IDPN ---
Subjective Subjective Remarks Notes reviewed. Temps occ 99+ On the vent Off flolan On fentanyl and versed BP ok Awake, responding some Had some problem with desat earlier, better now, FiO2 at 0.5 One BC with Staph epi out of 2 Sputum MSSA Repeat BC negative WBC stable 14K Not much ET secretions UA ok Tolerating TF Good UO Last CXR with stable infiltrates is a 50 years old obese male with past medical history significant for undiagnosed sleep apnea, super morbid obesity, type 2 diabetes was brought to the emergency department on 03/24/16. ID following for MSSA pneumonia. Antibiotics Vancomycin IV Lines PICC 04/15 Past Medical History Reviewed Allergies: Coded Allergies: Penicillin (Verified Allergy, Severe, Swelling, 03/24/16) Tetanus Toxoid (Verified Allergy, Unknown, Swelling, 03/24/16) Objective . Vital Signs Date Time Temp Pulse Resp B/P Pulse Ox O2 Delivery O2 Flow Rate FiO2 04/23/16 07:47 100 50 04/23/16 06:00 104 04/23/16 04:20 96 50 04/23/16 04:00 90 04/23/16 04:00 99.5 88 15 111/62 95 04/23/16 04:00 50 04/23/16 02:00 71 04/23/16 01:10 93 50 04/23/16 00:00 68 04/23/16 00:00 98.0 68 15 101/65 94 04/23/16 00:00 50 04/22/16 22:00 97 45 04/22/16 22:00 70 04/22/16 20:00 72 04/22/16 20:00 97.9 74 15 104/62 95 04/22/16 20:00 45 04/22/16 19:25 96 45 04/22/16 18:00 81 04/22/16 16:00 72 04/22/16 16:00 98.7 72 15 102/57 93 04/22/16 16:00 45 04/22/16 14:32 93 55 04/22/16 14:00 82 04/22/16 12:00 70 04/22/16 12:00 81 04/22/16 12:00 98.2 81 15 99/58 94 04/22/16 11:09 93 100 04/22/16 10:00 85 204/22/16 04/23/16 15:00 23:00 07:00 Intake Total 1352 ml 1254 ml 1071 ml Output Total 1575 ml 1650 ml 1050 ml Balance -223 ml -396 ml 21 ml IV Total 885 ml 792 ml 319 ml Tube Feeding 267 ml 362 ml 352 ml Other 200 ml 100 ml 400 ml Output Urine Total 1525 ml 1650 ml 1050 ml Stool Total 50 ml Tube Feeding Residual Discard 0 ml 0 ml 0 ml . Laboratory Tests Test 04/22/16 04/23/16 05:30 05:20 White Blood Count 13.3 TH/MM3 14.1 TH/MM3 Red Blood Count 4.79 MIL/MM3 4.75 MIL/MM3 Hemoglobin 12.9 GM/DL 13.2 GM/DL Hematocrit 40.0 % 39.8 % Mean Corpuscular Volume 83.5 FL 83.7 FL Mean Corpuscular Hemoglobin 26.9 PG 27.7 PG Mean Corpuscular Hemoglobin 32.2 % 33.1 % Concent Red Cell Distribution Width 15.2 % 15.5 % Platelet Count 167 TH/MM3 168 TH/MM3 Mean Platelet Volume 10.0 FL 9.8 FL Laboratory Tests Test 04/21/16 04/22/16 04/22/16 04/23/16 17:15 05:30 16:40 05:20 Potassium Level 4.0 MEQ/L 3.0 MEQ/L 4.3 MEQ/L 3.1 MEQ/L Sodium Level 147 MEQ/L 146 MEQ/L Chloride Level 106 MEQ/L 105 MEQ/L Carbon Dioxide Level 30.0 MEQ/L 29.2 MEQ/L Anion Gap 11 MEQ/L 12 MEQ/L Blood Urea Nitrogen 44 MG/DL 40 MG/DL Creatinine 0.64 MG/DL 0.60 MG/DL Estimat Glomerular Filtration 132 ML/MIN 143 ML/MIN Rate Random Glucose 172 MG/DL 155 MG/DL Calcium Level 9.2 MG/DL 9.2 MG/DL Phosphorus Level 4.6 MG/DL 4.8 MG/DL Magnesium Level 2.5 MG/DL 2.4 MG/DL Imaging Chest X-Ray 04/19/16 0000 Signed Impressions: Service Date/Time: April 03:20 - CONCLUSION: 1. Cardiomegaly and findings of congestive heart failure. There has been no significant change when compared to the prior exam. Kyaw Rojo MD Chest X-Ray 04/18/16 0000 Signed Impressions: Service Date/Time: Monday, April 18, 2016 09:59 - CONCLUSION: 1. Support equipment in good position. 2. Small left basilar effusion and consolidative changes in the left lower lobe and perihilar region on the right. Dc Barton MD Chest X-Ray 04/16/16 0600 Signed Impressions: Service Date/Time: Saturday, April 16, 2016 03:58 - CONCLUSION: 1. Cardiomegaly. Bilateral lower lobe atelectasis versus pneumonia. There has been no significant change when compared to the prior exam. Kyaw Rojo MD Abdomen X-Ray 03/31/16 0000 Signed Impressions: Service Date/Time: Thursday, March 31, 2016 09:58 - CONCLUSION: Benign abdomen. Rodrigo Martinez MD Chest CT 03/28/16 0836 Signed Impressions: Service Date/Time: Monday, March 28, 2016 09:57 - CONCLUSION: Development areas of air bronchograms and consolidation more prominent in the right and left posterior basilar segments of the lower lobes. ET tube above the chanelle. Bernard Hartman MD CT Angiography 03/24/16 1121 Signed Impressions: Service Date/Time: Thursday, March 24, 2016 12:47 - CONCLUSION: 1. There is respiratory motion artifact but no PE is identified through most of the segmental level pulmonary arteries. 2. Mildly enlarged main pulmonary artery may indicate pulmonary arterial hypertension. 3. 11 mm left lower lobe noncalcified pulmonary nodule. Suggest correlation with any prior imaging studies that could confirm longer-term stability. If none are available consider short-term followup noncontrast chest CT in approximately 3 months. Ubaldo Rodas MD Chest X-Ray 04/12/16 0600 Signed Impressions: Service Date/Time: April 04:14 - CONCLUSION: Worsening appearance of the chest. Henrry Andrea MD Chest X-Ray 04/11/16 0000 Signed Impressions: Service Date/Time: Monday, April 11, 2016 04:09 - CONCLUSION: No significant change has occurred. Henrry Andrea MD Chest X-Ray 04/09/16 0900 Signed Impressions: Service Date/Time: Saturday, April 09, 2016 09:12 - CONCLUSION: 1. Diffuse alveolar consolidation of the left lung and right upper lung field consistent with pneumonia and/or asymmetric pulmonary edema. Clinical correlation is recommended. 2. Endotracheal tube has its tip 1 cm above the chanelle. This could be pulled back 2 cm for more optimal position. Farhat Montes MD Chest X-Ray 04/05/16599 Signed Impressions: Service Date/Time: April 03:25 - CONCLUSION: 1. Improved basilar consolidation. Residual versus developing right midlung consolidation. 2. Small bilateral pleural effusions are suspected. 3. No change cardiomegaly or lines/tubes. Ubaldo Ortiz MD Chest X-Ray 04/04/16599 Signed Impressions: Service Date/Time: Monday, April 04, 2016 04:44 - CONCLUSION: Worsening bilateral airspace opacities, especially left perihilar. Ubaldo Ortiz MD Chest X-Ray 04/04/16599 Signed Impressions: Service Date/Time: Monday, April 04, 2016 04:44 - CONCLUSION: Worsening bilateral airspace opacities, especially left perihilar. Ubaldo Ortiz MD Chest X-Ray 04/03/16599 Signed Impressions: Service Date/Time: Sunday, April 03, 2016 00:16 - CONCLUSION: Potential developing pneumonia in the right upper lobe. Bibasilar atelectasis modestly worse in the interim. Ubaldo Ortiz MD Chest X-Ray 04/03/16599 Signed Impressions: Service Date/Time: Sunday, April 03, 2016 00:16 - CONCLUSION: Potential developing pneumonia in the right upper lobe. Bibasilar atelectasis modestly worse in the interim. Ubaldo Ortiz MD Chest X-Ray 04/02/16924 Signed Impressions: Service Date/Time: Saturday, April 02, 2016 09:22 - CONCLUSION: Place a right jugular catheter terminates superior vena cava with no pneumothorax. Bernard Hartman MD Physical Exam GENERAL: Morbidly obese, awake, focusing, responding, on the vent, NAD SKIN: Cool skin, no cyanosis. No rash HEENT: No icterus, ET in place. Some conjunctival injection R eye CHEST: Coarse BS bilaterally, decreased at bases CARDIAC: regular, no murmur ABDOMEN: soft, obese, (+) BS : Becker in place, urine looks clear MUSCULOSKELETAL: Extremities without clubbing, cyanosis. Has improving pedal edema and edema hands NEUROLOGICAL: Awake, responding PSYCH: Unable to assess LINE: No evidence of infection Assessment & Plan Remarks IMPRESSION Leukocytosis, persistent, stable - has been on adequate Abx for pathogens isolated Pneumonia, C/S MSSA - Last CXR stable - S/P RX JACOB Respiratory failure, improving O2 requirement - has extensive infiltrates Morbid obesity Allergy to PCN, swelling Fevers, recurrent - has (+) BC, Staph epi one out 2 BC, has new line PICC - ?new VAP, has MSSA again RECOMMENDATION Monitor progress Follow C/S Monitor temps Continue IV vancomycin. Prob will need trach Elisha Painter MD Apr 23, 2016 09:55
--- NOTE | 2016-04-23 11:28 | HHI.HCPN ---
Reason for visit a. To assist with evaluation and management of symptoms including: Dyspnea, anxiety b. To assist medical decision maker(s) with: better understanding of current medical conditions; weighing benefits/burdens of medical treatment options; making medical treatment decisions. (Irais Josue) Subjective/Interval History Pt remains in ICU, on mech vent. Still on sedation fentanyl 150 mcgs/hr, versed 50 mg hr. Nursing reports when lightened some tachycardia,tachypnea. Episodes of desaturation over the weekend requiring increase fio2 to 90%, aggressive pulmonary toileting, has since improved . Now on 50% fio2, peep 14. CXR = Bilateral areas of consolidation / atelectasis being worse on the left. Sputum culture 04/19 = staph aureus. One set of blood cultures 04/19 no growth to date. Second set of cultures 04/19 = staph species coagulase-negative . Tolerating tube feeding. PT seen in room, no visitors present, with Erin CRUZ. Minimally responsive to my exam. Eyes open spont, looks upward, around but does not track to voice, command or stimuli. NO withdrawal to pain stimuli. No signs of anxiety or discomfort during my exam. No respirations over ventilator rate. Observe mild tachycardia heart rate 105 at time of my exam. Discussed with primary nurse. following exam call to [facility] brother, TRISHA left. . (Irais Josue) Advance Directives Living Will: Completed, but not made available Health Care Surrogate: Copy in medical record Durable Power of Academic Administrator: Completed, but not made available (Irais Josue) Advance Directive Specifics Date completed: 2016 Health Care Surrogate(s): Names brother Farhat Leger as [facility] [facility] (Irais Josue) Objective Vital Signs Date Time Temp Pulse Resp B/P Pulse Ox O2 Delivery O2 Flow Rate FiO2 04/23/16 10:00 120 04/23/16 08:00 99 04/23/16 08:00 50 04/23/16 08:00 99.2 99 16 155/98 99 04/23/16 07:47 100 50 04/23/16 06:00 104 04/23/16 04:20 96 50 04/23/16 04:00 90 04/23/16 04:00 99.5 88 15 111/62 95 04/23/16 04:00 50 04/23/16 02:00 71 04/23/16 01:10 93 50 04/23/16 00:00 68 04/23/16 00:00 98.0 68 15 101/65 94 04/23/16 00:00 50 04/22/16 22:00 97 45 04/22/16 22:00 70 04/22/16 20:00 72 04/22/16 20:00 97.9 74 15 104/62 95 04/22/16 20:00 45 04/22/16 19:25 96 45 04/22/16 18:00 81 04/22/16 16:00 72 04/22/16 16:00 98.7 72 15 102/57 93 04/22/16 16:00 45 04/22/16 14:32 93 55 04/22/16 14:00 82 04/22/16 12:00 70 04/22/16 12:00 81 04/22/16 12:00 98.2 81 15 99/58 94 Intake & Output 04/23/16 04/23/16 07:00 19:00 Intake Total 2325 ml Output Total 2700.0 ml Balance -375.0 ml IV Total 1111 ml Tube Feeding 714 ml Other 500 ml Output Urine Total 2700 ml Tube Feeding Residual Discard 0 ml Physical Exam CONSTITUTIONAL/GENERAL: This is a morbidly obese, critically ill-appearing patient, in ICU on mechanical vent TUBES/LINES/DRAINS: ET tube, OG tube, central line, Becker catheter, rectal drain SKIN: No jaundice, rashes, or lesions.no wounds seen posteriorly. + generalized edema CARDIOVASCULAR: Regular rate and rhythm, no murmurs.I'll be tachycardic, 105. Distant heart sounds. Peripheral pulses symmetric. RESPIRATORY/CHEST: Symmetric, unlabored respirations via ET tube to mechanical vent. Decreased air movement throughout, clear, equal bilaterally. GASTROINTESTINAL: Abdomen soft, obese. Unable to determine to tenderness. TF infusing via OG tube. +liq stool via rectal drain. Bowel sounds hypoactive. MUSCULOSKELETAL: Extremities without clubbing, cyanosis. + generalized edema NEUROLOGICAL: Sedated, minimally responsive to exam. Eyes open spontaneous, gaze is upward, and moves eyes around--however does not track examiner voice or touch or command. Does not withdrawal to pain stimuli for me. PSYCHIATRIC: No obvious anxiety/depression--limited exam due to clinical condition . (Irais Josue) Diagnostic Tests Laboratory Laboratory Tests Test 04/21/16 04/21/16 04/21/16 04/22/16 05:40 17:15 17:35 05:20 White Blood Count 14.7 TH/MM3 (4.0-11.0) Red Blood Count 4.78 MIL/MM3 (4.50-5.90) Hemoglobin 13.0 GM/DL (13.0-17.0) Hematocrit 39.8 % (39.0-51.0) Mean Corpuscular Volume 83.1 FL (80.0-100.0) Mean Corpuscular Hemoglobin 27.1 PG (27.0-34.0) Mean Corpuscular Hemoglobin 32.6 % Concent (32.0-36.0) Red Cell Distribution Width 15.6 % (11.6-17.2) Platelet Count 175 TH/MM3 (150-450) Mean Platelet Volume 9.6 FL (7.0-11.0) Neutrophils (%) (Auto) 77.3 % (16.0-70.0) Lymphocytes (%) (Auto) 13.7 % (9.0-44.0) Monocytes (%) (Auto) 7.0 % (0.0-8.0) Eosinophils (%) (Auto) 1.4 % (0.0-4.0) Basophils (%) (Auto) 0.6 % (0.0-2.0) Neutrophils # (Auto) 11.4 TH/MM3 (1.8-7.7) Lymphocytes # (Auto) 2.0 TH/MM3 (1.0-4.8) Monocytes # (Auto) 1.0 TH/MM3 (0-0.9) Eosinophils # (Auto) 0.2 TH/MM3 (0-0.4) Basophils # (Auto) 0.1 TH/MM3 (0-0.2) CBC Comment DIFF FINAL Differential Comment Sodium Level 149 MEQ/L (136-145) Potassium Level 3.0 MEQ/L 4.0 MEQ/L (3.5-5.1) (3.5-5.1) Chloride Level 106 MEQ/L (98-107) Carbon Dioxide Level 32.3 MEQ/L (21.0-32.0) Anion Gap 11 MEQ/L (5-15) Blood Urea Nitrogen 47 MG/DL (7-18) Creatinine 0.67 MG/DL (0.60-1.30) Estimat Glomerular Filtration 126 ML/MIN Rate (>89) Random Glucose 186 MG/DL (74-106) Calcium Level 9.1 MG/DL (8.5-10.1) Total Bilirubin 1.0 MG/DL (0.2-1.0) Aspartate Amino Transf 62 U/L (15-37) (AST/SGOT) Alanine Aminotransferase 210 U/L (12-78) (ALT/SGPT) Alkaline Phosphatase 71 U/L (45-117) Total Protein 6.9 GM/DL (6.4-8.2) Albumin 2.8 GM/DL (3.4-5.0) Blood Gas Puncture Site RT RADIAL RT BRACHIAL Blood Gas Patient Temperature 98.6 98.6 Blood Gas HCO3 26 mmol/L 27 mmol/L (22-26) (22-26) Blood Gas Base Excess 3.0 mmol/L 3.1 mmol/L (-2-2) (-2-2) Blood Gas Oxygen Saturation 94 % (90-100) 97 % (90-100) Arterial Blood pH 7.49 7.48 (7.380-7.420) (7.380-7.420) Arterial Blood Partial 35 mmHg (38-42) 36 mmHg (38-42) Pressure CO2 Arterial Blood Partial 84 mmHg 153 mmHg Pressure O2 (61-120) (61-120) Arterial Blood Oxygen Content 17.4 Vol % 19.1 Vol % (12.0-20.0) (12.0-20.0) Arterial Blood 1.3 % (0-4) 1.1 % (0-4) Carboxyhemoglobin Arterial Blood Methemoglobin 1.1 % (0-2) 1.1 % (0-2) Blood Gas Hemoglobin 13.2 G/DL 13.9 G/DL (12.0-16.0) (12.0-16.0) Oxygen Delivery Device VENTILATOR VENTILATOR Blood Gas Ventilator Setting PRVC/AC Blood Gas Inspired Oxygen 50 % 50 % Test 04/22/16 04/22/16 04/22/16 04/23/16 05:30 12:20 16:40 05:20 White Blood Count 13.3 TH/MM3 14.1 TH/MM3 (4.0-11.0) (4.0-11.0) Red Blood Count 4.79 MIL/MM3 4.75 MIL/MM3 (4.50-5.90) (4.50-5.90) Hemoglobin 12.9 GM/DL 13.2 GM/DL (13.0-17.0) (13.0-17.0) Hematocrit 40.0 % 39.8 % (39.0-51.0) (39.0-51.0) Mean Corpuscular Volume 83.5 FL 83.7 FL (80.0-100.0) (80.0-100.0) Mean Corpuscular Hemoglobin 26.9 PG 27.7 PG (27.0-34.0) (27.0-34.0) Mean Corpuscular Hemoglobin 32.2 % 33.1 % Concent (32.0-36.0) (32.0-36.0) Red Cell Distribution Width 15.2 % 15.5 % (11.6-17.2) (11.6-17.2) Platelet Count 167 TH/MM3 168 TH/MM3 (150-450) (150-450) Mean Platelet Volume 10.0 FL 9.8 FL (7.0-11.0) (7.0-11.0) Sodium Level 147 MEQ/L 146 MEQ/L (136-145) (136-145) Potassium Level 3.0 MEQ/L 4.3 MEQ/L 3.1 MEQ/L (3.5-5.1) (3.5-5.1) (3.5-5.1) Chloride Level 106 MEQ/L 105 MEQ/L (98-107) (98-107) Carbon Dioxide Level 30.0 MEQ/L 29.2 MEQ/L (21.0-32.0) (21.0-32.0) Anion Gap 11 MEQ/L (5-15) 12 MEQ/L (5-15) Blood Urea Nitrogen 44 MG/DL (7-18) 40 MG/DL (7-18) Creatinine 0.64 MG/DL 0.60 MG/DL (0.60-1.30) (0.60-1.30) Estimat Glomerular Filtration 132 ML/MIN 143 ML/MIN Rate (>89) (>89) Random Glucose 172 MG/DL 155 MG/DL (74-106) (74-106) Calcium Level 9.2 MG/DL 9.2 MG/DL (8.5-10.1) (8.5-10.1) Phosphorus Level 4.6 MG/DL 4.8 MG/DL (2.5-4.9) (2.5-4.9) Magnesium Level 2.5 MG/DL 2.4 MG/DL (1.5-2.5) (1.5-2.5) Vancomycin Level Trough 18.7 MCG/ML (5.0-10.0) Blood Gas Puncture Site RT RADIAL Blood Gas Patient Temperature 98.6 Blood Gas HCO3 26 mmol/L (22-26) Blood Gas Base Excess 2.1 mmol/L (-2-2) Blood Gas Oxygen Saturation 97 % (90-100) Arterial Blood pH 7.43 (7.380-7.420) Arterial Blood Partial 40 mmHg (38-42) Pressure CO2 Arterial Blood Partial 156 mmHg Pressure O2 (61-120) Arterial Blood Oxygen Content 19.1 Vol % (12.0-20.0) Arterial Blood 1.0 % (0-4) Carboxyhemoglobin Arterial Blood Methemoglobin 1.2 % (0-2) Blood Gas Hemoglobin 13.9 G/DL (12.0-16.0) Oxygen Delivery Device VENTILATOR Blood Gas Ventilator Setting Blood Gas Inspired Oxygen 80 % Test 04/23/16 06:03 Blood Gas Puncture Site LT RADIAL Blood Gas Patient Temperature 98.6 Blood Gas HCO3 27 mmol/L (22-26) Blood Gas Base Excess 3.0 mmol/L (-2-2) Blood Gas Oxygen Saturation 95 % (90-100) Arterial Blood pH 7.42 (7.380-7.420) Arterial Blood Partial 43 mmHg (38-42) Pressure CO2 Arterial Blood Partial 94 mmHg Pressure O2 (61-120) Arterial Blood Oxygen Content 21.5 Vol % (12.0-20.0) Arterial Blood 0.9 % (0-4) Carboxyhemoglobin Arterial Blood Methemoglobin 1.1 % (0-2) Blood Gas Hemoglobin 16.1 G/DL (12.0-16.0) Oxygen Delivery Device VENTILATOR Blood Gas Ventilator Setting PRVC/AC Blood Gas Inspired Oxygen 50 % (Irais Josue) Result Diagram: 04/23/16 0520 04/23/16 0520 Microbiology Microbiology Date/Time Procedure Status Source Growth 04/19/16 21:30 Gram Stain - Final Complete Sputum Endotracheal 04/19/16 21:30 Sputum Culture - Final Complete Staphylococcus Aureus 04/19/16 13:30 Aerobic Blood Culture - Final Complete Blood Peripheral Staph Sp Coagulase Negative 04/19/16 13:30 Anaerobic Blood Culture - Final Complete Staphylococcus Epidermidis 04/19/16 13:24 Aerobic Blood Culture - Preliminary Resulted Blood Peripheral NO GROWTH IN 4 DAYS 04/19/16 13:24 Anaerobic Blood Culture - Preliminary Resulted Blood Peripheral NO GROWTH IN 4 DAYS Imaging Last Impressions Chest X-Ray 04/23/16 0600 Signed Impressions: Service Date/Time: Saturday, April 23, 2016 03:46 - CONCLUSION: Bilateral areas of consolidation or atelectasis being worse on the left. Ubaldo Coombs MD Abdomen X-Ray 03/31/16 0000 Signed Impressions: Service Date/Time: Thursday, March 31, 2016 09:58 - CONCLUSION: Benign abdomen. Rodrigo Martinez MD Chest CT 03/28/16 0836 Signed Impressions: Service Date/Time: Monday, March 28, 2016 09:57 - CONCLUSION: Development areas of air bronchograms and consolidation more prominent in the right and left posterior basilar segments of the lower lobes. ET tube above the chanelle. Bernard Hartman MD CT Angiography 03/24/16 1121 Signed Impressions: Service Date/Time: Thursday, March 24, 2016 12:47 - CONCLUSION: 1. There is respiratory motion artifact but no PE is identified through most of the segmental level pulmonary arteries. 2. Mildly enlarged main pulmonary artery may indicate pulmonary arterial hypertension. 3. 11 mm left lower lobe noncalcified pulmonary nodule. Suggest correlation with any prior imaging studies that could confirm longer-term stability. If none are available consider short-term followup noncontrast chest CT in approximately 3 months. Ubaldo Rodas MD Procedures 03/26intubated 03/26 left IJ central line 04/02right IJ central line . (Irais Josue) Assessment and Plan Disease Oriented Problem List: (1) Acute respiratory failure with hypoxia (2) Staphylococcus aureus pneumonia (3) Pulmonary edema (4) Hypoxia (5) JACOB (obstructive sleep apnea) (6) Pulmonary nodule, left (7) Obesity hypoventilation syndrome (8) Morbid obesity with BMI of 50.0-59.9, adult (9) Diabetes mellitus type 2 in obese Symptom Scale: (1) Anxiety (2) Dyspnea (3) Encephalopathy Pertinent Non-Medical Issues Psychosocial:Patient is , shares an apartment locally with his brother. Apparently has 2 other siblings as well as 2 adult children who live in the [place] area. Has designated his brother Farhat as healthcare surrogate. 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 Spiritual: Legal:Patient is not able to participate in decision-making due to clinical condition. Has completed designation naming his brother Farhat as HCS. Ethical issues impacting care: Important Contacts brother Farhat Leger [phone] ([facility]) Brother Gagandeep Leger [phone] . Prognosis This patient was admitted for further evaluation of obesity hypoventilation syndrome; absolutely developed acute respiratory failure requiring mechanical ventilation. Has continued to require high levels of ventilator support, though other organ functions remain preserved. Possible he can recover from this however currently remains in critical condition, prognosis guarded. . Code Status: Full Code (per attending documentation ) Plan * Legal decision maker: Patiently currently unable to participate in goals / decision-making due to clinical condition. It is not clear if he will regain decision-making capacity. He has designated his brother Farhat as healthcare surrogate. * Goals: Recent meeting with 2 brothers and a sister indicate that Goals are aggressive, family seems to good understanding of current conditions and prognosis. 04/11/16: Farhat says he has spoken with the patient's two 20- something daughters in [place] and they want to continue aggressive care and full CODE STATUS. Farhat says he did discuss with them the poor prognosis. I encouraged him to encouraged them to come down here to see their father, and let him know that we would be happy to discuss this further with them also. He says he, the healthcare surrogate, would lean toward de-escalation of care but he wants to honor the daughter's wishes. 04/16/16 --met with daughters as well as brother. Family seems to have overall good understanding. They remain cautiously optimistic. Goals remain aggressive. 04/19/16: Spoke with brother/ HCS Farhat, goals remain aggressive * 04/23/16 VM left for brotherKIMBERLY. Goals have been aggressive. * CODE STATUS: Full code. * SYMPTOMS: --Dyspnea-emergently intubated, has remained on high ventilator settings as well as prone bed-- prone bed d/c. Currently breathing comfortably on mechanical vent, on sedatives. Mild tachypnea reported when lightened. (IV fentanyl, Versed ) --Anxiety-risk for related to prolonged intubation, hospitalization, underlying respiratory issues; currently appears comfortable on multiple sedatives (IV fentanyl, Versed) as becomes more alert/responsive will need ongoing assessments. --encephalopathy: Multifactorial, metabolic. Has been on sedatives 28 days, has been off of Nimbex for over a week now though was on that for many days. Minimally responsive to exam. * Palliative care will continue to follow during hospital course as condition evolves, to assist patient/decision-maker with understanding of medical conditions, weighing benefits/burdens of treatment options, for clarification of goals of treatment. Additionally will assist with any symptoms of palliative concern (Irais Josue) Attestation To help prompt me to consider important information that might be impacting today's encounter and assessment, information from prior notes written by myself or my colleagues may have been "brought forward" into today's note. My signature on this note, however, is an attestation that I personally performed the exam, history, and/or decision-making noted today, and, unless otherwise indicated, the interactions with patient, family, and staff as well as the review of records all occurred today. I also attest that the listed assessment and stated plan reflect my best clinical judgment today based on the combination of historical information, prior notes, and today's exam/ interactions. When time spent is documented, it refers only to time spent today by the signer, or if indicated, combined time spent today by collaborating physician/nurse practitioner. (Irais Josue) Collaborating MD Comments Chart reviewed. Case discussed with palliative care [employer]. Above NANCY note reviewed and I concur. . (Jose Holguin MD) Irais Josue Apr 23, 2016 11:28 Jose Holguin MD May 23, 2016 12:20
--- NOTE | 2016-04-23 13:27 | HHI.CCPN ---
Subjective Remarks/Hospital Course Patient is a 50 years old obese male with past medical history significant for undiagnosed sleep apnea, super morbid obesity, type 2 diabetes was brought to the emergency department on 03/24/16 after feeling light headed and dizzy. On presentation here was found to be hypoxemic and ABG showed severe hypoxemia and hypercarbia. For a recent driving physical he was diagnosed with low oxygen saturations. Patient's oxygen saturation the ED was in the low 80s, which was confirmed on ABG with a oxygen saturation of 78% and PO2 of 46. CTA negative for PE. Patient was initiated on BiPAP therapy with consult to pulmonary Dr. Crane. His oxygenation improved but he continued to be hypercapnic. Today a.m. on nasal cannula his pH was 7.26 and PCO2 was increased at 99, patient was somnolent was placed back on BiPAP and repeat ABG at noon showed pH 7.26 PCO2 98 and pO2 70. This was on 16 BiPAP with FiO2 50%. Critical care was consulted. On my evaluation patient is somnolent but wakes up easily. I reduced the PEEP on BiPAP from 12-7 to facilitate better ventilation. A repeat ANG showed only minimal improvement, so decision made to intubate patient. Glidescope with #4 blade was used. Only propofol was used for induction. Initially I had a Grade 1-2 view, but I was unable to pass tube through the vocal cord to trachea in two attempts. Tube slipped out of Laryngeal opening both times. Dr Garrett intubated patient after NM paralysis with succinylcholine. Post intubation ABG showed improvement in hypercapnia and oxygenation. 03/27/16: Patient remains intubated heavily sedated with propofol and fentanyl. Remained severely hypoxemic on 100% FiO2, PEEP12, chest x-ray shows bibasilar infiltrates. Flagyl added. We'll give 1 dose of vancomycin-Adjust antibiotics according to cultures. Patient super morbid obesity may prevent Prone therapy 03/28: Remains hypoxic but ABG shows marginal improvement in oxygenation. WBC increasing 20.1 today. Start vancomycin scheduled. 03/29: Oxygenation is slightly improved. FiO2 reduced to 50% today. Chest x- ray remains unchanged. On sedation hold patient does wake up and follow commands. WBC count remains at 20 03/30 No acute events overnight. Sedated with Diprivan and Fentanyl. Had T: 100.1 at 4 am. WBC trending down 15.9 today from 20. 03/31 Patient remains sedated with Diprivan, Fentanyl and intubated. Tmax 100.1. Patient required increase O2 overnight now on ACV with PEEP: 12 and FIO2 70%. 04/01: Tmax 99.7. No bowel movement since admission. Patient has bowel sounds. Arousable on the ventilator. We'll attempt prone the patient paralyzed to increase oxygenation status. 04/02: MAXIMUM TEMPERATURE 100.9. Currently 97.7. 5 10 cc stools overnight. Placed on Roto prone yesterday. Saturations currently 94% on Flolan. Diuresed overnight. Creatinine still within normal limits. 04/03: Tmax 101. Currently 99.1. Positive BM. Did not tolerate not being unprone this AM. Saturations much improved prone. Tolerating tube feeding. 04/04: Tmax 100.8. Currently 98.8. +2 L past 24 hours. Attempt to on prone today. Positive BM. C. difficile negative. Remains paralyzed. 04/05: Remains sedated, orally intubated on neuromuscular blockade on mechanical ventilation. Remains on Rota prone bed. On insulin drip. 04/06: Remains sedated, orally intubated on neuromuscular blockade, on mechanical ventilation. Remains on Rota prone bed. Insulin drip continues. 04/07 Patient remains on Rotoprone bed sedated with Diprivan, Versed, Fentanyl in addition patient is on Nimbex. Afebrile. On Insulin drip 5u/hr. 04/08 Patient remains sedated and intubated and on Nimbex. Off insulin drip. On PRVC/AC with RR 15, TV 550, IT: 1.65, PEEP: 15 and FIO2 100%. T: 100.2 at 4 am. 04/09 Patient is sedated, intubated and remains on neuromuscular blockade. Vent setting unchanged. afebrile. 04/10 Patient remains sedated and intubated and on Nimbex. On PRVC/AC, RR 15, TV 500, PEEP: 15, FIO2 90%, IT:1.65, on Flolan drip. Remains on Rotoprone bed. 04/11 minimal improvement in oxygenation, FiO2 now at 75 - continue to improve oxygenation, worsening CXR 04/13/10 continue to improve oxygenation DC'd prone position last night 04/14- improving oxygenation, Nimbex discontinued as well as prone position 04/16 Patient is sedated with Versed and Fentanyl and intubated. Off rotoprone bed. On PRVC/AC RR 15, TV 550, IT 1.65, PEEP:15, FIO2 50%. 04/17 Patient remains sedated with Versed and Fentanyl. Afebrile, tolerating tube feeds 04/18 No acute events overnight Sedated and intubated. Afebrile. On PRVC/AC RR 15 , TV 550, IT 1.65, PEEP:15, FIO2 60% 04/19: Spiking fever up to 101, pancultured and 1 dose of vancomycin given by ID. On weaning doses of Flolan. FiO2 down to 50% I have reduced PEEP to 14. Remains critically ill 04/20: No fever. Sputum cx with Staph -S pending. Fio2 50% PEEP remains at 14. TV increased to 650 to improve lung recruitment. On weaning dose of Flolan-DC after current bag 04/21:Afebrile. Hyponatremia resolving, the patient will be placed on free water flushes. 04/22:The patient had an episode of acute desaturation requiring FiO2 increased to 90%. Stat chest x-ray stat ABG aggressive pulmonary toileting and suctioning , resolution of symptoms FiO2 now 55%. ABGs within normal limits. Subjective 04/23: Tmax 99.5. Currently afebrile. O2 sat 50%. PEEP down to 13. One small bowel movement overnight. Objective Vital Signs Date Time Temp Pulse Resp B/P Pulse Ox O2 Delivery O2 Flow Rate FiO2 04/23/16 12:30 95 50 04/23/16 12:00 99.4 99 15 142/80 Intake and Output 04/22/16 04/22/16 04/23/16 08:00 16:00 00:00 Intake Total 583 ml 1352 ml 1254 ml Output Total 1025.0 ml 1575.0 ml 1650.0 ml Balance -442.0 ml -223.0 ml -396.0 ml Result Diagram: 04/23/16 0520 04/23/16 0520 Other Results Microbiology Date/Time Procedure Status Source Growth 04/19/16 21:30 Gram Stain - Final Complete Sputum Endotracheal 04/19/16 21:30 Sputum Culture - Final Complete Staphylococcus Aureus 04/19/16 13:30 Aerobic Blood Culture - Final Complete Blood Peripheral Staph Sp Coagulase Negative 04/19/16 13:30 Anaerobic Blood Culture - Final Complete Staphylococcus Epidermidis 04/19/16 13:24 Aerobic Blood Culture - Preliminary Resulted Blood Peripheral NO GROWTH IN 4 DAYS 04/19/16 13:24 Anaerobic Blood Culture - Preliminary Resulted Blood Peripheral NO GROWTH IN 4 DAYS Imaging Last Impressions Chest X-Ray 04/23/16 0600 Signed Impressions: Service Date/Time: Saturday, April 23, 2016 03:46 - CONCLUSION: Bilateral areas of consolidation or atelectasis being worse on the left. Ubaldo Coombs MD Abdomen X-Ray 03/31/16 0000 Signed Impressions: Service Date/Time: Thursday, March 31, 2016 09:58 - CONCLUSION: Benign abdomen. Rodrigo Martinez MD Chest CT 03/28/16 0836 Signed Impressions: Service Date/Time: Monday, March 28, 2016 09:57 - CONCLUSION: Development areas of air bronchograms and consolidation more prominent in the right and left posterior basilar segments of the lower lobes. ET tube above the chanelle. Bernard Hartman MD CT Angiography 03/24/16 1121 Signed Impressions: Service Date/Time: Thursday, March 24, 2016 12:47 - CONCLUSION: 1. There is respiratory motion artifact but no PE is identified through most of the segmental level pulmonary arteries. 2. Mildly enlarged main pulmonary artery may indicate pulmonary arterial hypertension. 3. 11 mm left lower lobe noncalcified pulmonary nodule. Suggest correlation with any prior imaging studies that could confirm longer-term stability. If none are available consider short-term followup noncontrast chest CT in approximately 3 months. Ubaldo Rodas MD Objective Remarks GENERAL: 50-year-old male, critically ill. Orally intubated on mechanical ventilation, on sedation SKIN: Seborrheic dermatitis of the face HEAD: Atraumatic. Normocephalic. EYES: Pupils equal round and slightly reactive about 3 millimeters bilaterally. ENT: NG tube in place. Orotracheally intubated NECK: Very large neck. Trachea midline. CARDIOVASCULAR: Distant heart sounds. RRR. S1, S2. No S4. Without murmur RESPIRATORY: Orally intubated on mechanical ventilation, Breath sounds equal bilaterally. Diminished breath sounds due to body habitus. GASTROINTESTINAL: Abdomen soft, obese, nontender. Severe central obesity MUSCULOSKELETAL: Extremities with trace to 1+ nonpitting bilateral lower extremity edema. Left antecubital PICC line is clean dry and intact NEUROLOGICAL: Intubated and sedated on the ventilator. Opens eyes appears to track minimally. +ve cough and gag. No withdrawal of extremities Date of Insertion: Apr 02, 2016 Line: PICC Side: Left Location: Antecubital A/P Assessment and Plan Neuro/Psych: Likely SERENITY Toxic metabolic encephalopathy Currently On Fentanyl drip at 15 mcg an hour and Versed infusion 5 mg an hour for sedation and analgesia while intubated Goal of RASS a -2 Daily sedation vacation when appropriate PEEP< 8, FIO2.50 Acetaminophen for fever Pulm: Acute hypoxemic respiratory failure [facility] History of staph aureus pneumonia/HCAP ARDS On PRVC/AC RR 15, TV 650, IT:1.65, PEEP:13, FIO2 50% Continue with vent support keep sat >90%. Bronchodilators every 6 hours and every 2 hours as needed ICU vent bundle. Will need trach once oxygen requirements, PEEP improved. Flolan off since 04/21 on Solumederol 40mg daily CV: Monitor HR and BP keep MAP>65mmHg 2-D echo 03/26 EF 60%. No regional wall motion abnormality. Mild ileus.. Mild MR/TR. /FEN: Hypokalemia Monitor renal function, I/O's, electrolytes replacement per protocol. On Lasix 20mg Q12. K replacement . Scheduled K daily GI: Constipation Moderate protein calorie malnutrition On Glucerna 1.5@45ml/hr with 1 scoop wheyprotein 3 times a day, Protonix 40mg daily On Reglan 10mg Q8, Senna and Colace twice a day. ID: Staph aureus pneumonia Possible staph bacteremia Pertinent culture 04/19 - blood cultures 2 out of 4 - staph aureus 04/19 - sputum - staph aureus 04/08 - sputum - staph aureus 04/03 - sputum - staph aureus 03/30 - sputum- -staph aureus 03/27 - sputum - staph aureus 03/26 - blood - staph hominis On vancomycin 2 g IV every 12 are since 04/19. Heme: Leukocytosis Monitor CBC/coags Endo: Diabetes mellitus SSI for glycemic control ( high scale) 35 units sliding scale insulin scale insulin in the past 24 hours, Levemir insulin 55U Q12 MSK Morbid obesity Weight loss encouraged DVT, GI prophylaxis -Bilateral lower extremity SCDs. IV Protonix 40 mg daily. Lovenox 40 mg sq BID LINES: -Left upper extremity PICC line placed 04/15 Critical Care: The total critical care time was 55 minutes. Time to perform other separately billable procedures was not included in the critical care time. Codey Florentino MD Apr 23, 2016 13:27
[2016-04-23] MEDS: RESP: ALBUTEROL 2.5 MG/IPRATROPIUM 0.5 MG NEB (SCH) NEB ×2 (14:53→19:40)
--- NOTE | 2016-04-23 17:24 | HHI.PR ---
Subjective Remarks ON THE VENT SEDATED FIO2 AT 80% Objective Vital Signs Date Time Temp Pulse Resp B/P Pulse Ox O2 Delivery O2 Flow Rate FiO2 04/23/16 16:00 50 04/23/16 16:00 99.3 110 15 158/97 99 04/23/16 16:00 110 04/23/16 14:00 110 04/23/16 14:00 50 04/23/16 12:30 95 50 04/23/16 12:00 99.4 99 15 142/80 99 04/23/16 12:00 98 04/23/16 12:00 50 04/23/16 10:00 120 04/23/16 08:00 99 04/23/16 08:00 50 04/23/16 08:00 99.2 99 16 155/98 99 04/23/16 07:47 100 50 04/23/16 06:00 104 04/23/16 04:20 96 50 04/23/16 04:00 90 04/23/16 04:00 99.5 88 15 111/62 95 04/23/16 04:00 50 04/23/16 02:00 71 04/23/16 01:10 93 50 04/23/16 00:00 68 04/23/16 00:00 98.0 68 15 101/65 94 04/23/16 00:00 50 04/22/16 22:00 97 45 04/22/16 22:00 70 04/22/16 20:00 72 04/22/16 20:00 97.9 74 15 104/62 95 04/22/16 20:00 45 04/22/16 19:25 96 45 04/22/16 18:00 81 I/O 04/22/16 04/22/16 04/22/16 04/23/16 04/23/16 04/23/16 07:00 15:00 23:00 07:00 15:00 23:00 Intake Total 583 ml 1352 ml 1254 ml 1071 ml 1474 ml Output Total 1025 ml 1575 ml 1650 ml 1050 ml 1850 ml Balance -442 ml -223 ml -396 ml 21 ml -376 ml IV Total 162 ml 885 ml 792 ml 319 ml 761 ml Tube Feeding 371 ml 267 ml 362 ml 352 ml 313 ml Other 50 ml 200 ml 100 ml 400 ml 400 ml Output Urine Total 1025 ml 1525 ml 1650 ml 1050 ml 1800 ml Stool Total 50 ml 50 ml Tube Feeding Residual Discard 0 ml 0 ml 0 ml 0 ml Result Diagram: 04/23/16 0520 04/23/16 1630 Objective Remarks GENERAL: SKIN: Warm and dry. HEAD: Atraumatic. Normocephalic. EYES: Pupils equal and round. No scleral icterus. No injection or drainage. ENT: No nasal bleeding or discharge. Mucous membranes pink and moist. NECK: Trachea midline. No JVD. CARDIOVASCULAR: Regular rate and rhythm. RESPIRATORY: No accessory muscle use. Clear to auscultation. Breath sounds equal bilaterally. GASTROINTESTINAL: Abdomen soft, non-tender, nondistended. Hepatic and splenic margins not palpable. MUSCULOSKELETAL: Extremities without clubbing, cyanosis, or edema. No obvious deformities. NEUROLOGICAL: Awake and alert. No obvious cranial nerve deficits. Motor grossly within normal limits. Five out of 5 muscle strength in the arms and legs. Normal speech. PSYCHIATRIC: Appropriate mood and affect; insight and judgment normal. Assessment and Plan Assessment and Plan RESPIRATORY FAILURE SEPSIS ARDS JACOB/CSA PLAN VENT SUPPORT FIO2 INCREASED TO 0.8 PULM TOILET WEAN TOLERATED. CHECK ABG, CXRAY Orlando Perry MD Apr 23, 2016 17:24
[2016-04-23] MEDS: PANTOPRAZOLE SODIUM 40 MG VIAL IV PUSH SCH (17:47)
[2016-04-24] VITALS (19 sets, daily range): BP systolic 100–129; BP diastolic 63–84; PULSE 80–118; RESP 15; TEMP 98.4–99.9; O2SAT 94–96
[2016-04-24] MEDS: RESP: ALBUTEROL 2.5 MG/IPRATROPIUM 0.5 MG NEB (SCH) NEB ×4 (02:50→19:55)
[2016-04-24 03:46] LABS: AUTOMATED NEUTROPHIL # 12.3 TH/MM3 (1.8-7.7); BASOPHIL # 0.1 TH/MM3 (0-0.2); BASOPHIL % 0.4 % (0.0-2.0); EOSINOPHIL # 0.2 TH/MM3 (0-0.4); EOSINOPHIL % 1.4 % (0.0-4.0); HEMATOCRIT 42.1 % (39.0-51.0); HEMO FLAGS DIFF FINAL; LYMPH % 14.3 % (9.0-44.0); LYMPHOCYTE # 2.2 TH/MM3 (1.0-4.8); MEAN CELL VOLUME 83.3 FL (80.0-100.0); MEAN CORPUSCULAR HEMOGLOBIN 26.8 PG (27.0-34.0); MEAN CORPUSCULAR HGB CONC 32.1 % (32.0-36.0); MONO % 5.2 % (0.0-8.0); NEUT % 78.7 % (16.0-70.0); PLATELET COUNT 181 TH/MM3 (150-450); RED BLOOD COUNT 5.05 MIL/MM3 (4.50-5.90); RED CELL DISTRIBUTION WIDTH 15.2 % (11.6-17.2); WHITE BLOOD COUNT 15.6 TH/MM3 (4.0-11.0)
[2016-04-24 03:53] LABS: APTT (PATIENT) 23.8 SEC (24.3-30.1); PROTHROMBIN TIME - PATIENT 10.8 SEC (9.8-11.6)
[2016-04-24 04:16] LABS: ALT (GPT) 179 U/L (12-78); ANION GAP 9 MEQ/L (5-15); AST (GOT) 33 U/L (15-37); BICARBONATE 28.9 MEQ/L (21.0-32.0); BLOOD UREA NITROGEN 35 MG/DL (7-18); CHLORIDE 108 MEQ/L (98-107); GLOMERULAR FILTRATION RATE 143 ML/MIN (>89); MAGNESIUM 2.4 MG/DL (1.5-2.5); POTASSIUM 3.7 MEQ/L (3.5-5.1); SODIUM (NA) 146 MEQ/L (136-145)
[2016-04-24 04:19] LABS: ALKALINE PHOSPHATASE 84 U/L (45-117); TOTAL BILIRUBIN ADULT 0.8 MG/DL (0.2-1.0)
[2016-04-24 04:21] LABS: CREATINE KINASE 21 U/L (39-308)
[2016-04-24] MEDS: ARTIFICIAL TEARS OPTH SOLN 15 ML BTL EACH EYE SCH ×5 (05:53→21:44)
[2016-04-24] MEDS: VANCOMYCIN INJ 2,000 MG in SODIUM CHLORID 0.9% 500 ML INJ 500 ML IV SCH (05:53)
[2016-04-24] MEDS: FREE WATER G-TUBE SCH ×4 (05:53→22:51)
[2016-04-24] MEDS: METOCLOPRAMIDE HCL 10 MG/2 ML VIAL IV PUSH SCH ×3 (05:53→21:45)
[2016-04-24] MEDS: ENOXAPARIN SODIUM 40 MG/0.4 ML SYRINGE SQ SCH ×2 (05:53→17:43)
[2016-04-24] MEDS: INSULIN NovoLIN REGULAR SUPPLEMENTAL SCALE SQ SCH ×3 (06:00→17:44)
[2016-04-24] MEDS: LACTOBACILLUS ACIDOPHILUS TAB PO SCH ×3 (08:31→17:43)
[2016-04-24] MEDS: POTASSIUM CHLORIDE 25 MEQ EFFERVESCENT TAB PO SCH ×2 (08:31→21:44)
[2016-04-24] MEDS: methylPREDNISolone SOD SUCC 40 MG/1 ML VIAL IV PUSH SCH (08:31)
[2016-04-24] MEDS: POLYETHYLENE GLYCOL 17 GM PKG PO SCH ×2 (08:31→21:44)
[2016-04-24] MEDS: SENNOSIDES SYRUP 8.8 MG/5 ML CUP PO/TUBE SCH ×2 (08:31→21:44)
[2016-04-24] MEDS: DOCUSATE SODIUM 100 MG/10 ML UDC PO SCH ×2 (08:31→21:43)
[2016-04-24] MEDS: FUROSEMIDE 20 MG/2 ML VIAL IV PUSH SCH ×2 (08:32→21:43)
[2016-04-24] MEDS: ARTIFICIAL TEARS OPTH OINT 3.5 APPLIC/3.5 GM TUBO EACH EYE SCH ×2 (08:34→21:43)
[2016-04-24] MEDS: BETAMETHASONE/CLOTRIMAZOLE CREAM 15 GM TOPICAL SCH ×2 (08:34→21:44)
[2016-04-24] MEDS: INSULIN DETEMIR 100 UNITS/ML VIAL SQ SCH ×2 (08:34→21:44)
[2016-04-24] MEDS: BENEPROTEIN POWDER 1 PACK G-TUBE SCH ×3 (08:34→17:49)
[2016-04-24] MEDS: SODIUM CHLORIDE 0.9% FLUSH 5 ML FLUSH IVF SCH (08:35)
[2016-04-24] MEDS: CHLORHEXIDINE 0.12% (ORAL KIT) 15 ML CUP MT SCH ×2 (10:46→21:43)
--- NOTE | 2016-04-24 12:14 | HHI.CCPN ---
Subjective Remarks/Hospital Course Patient is a 50 years old obese male with past medical history significant for undiagnosed sleep apnea, super morbid obesity, type 2 diabetes was brought to the emergency department on 03/24/16 after feeling light headed and dizzy. On presentation here was found to be hypoxemic and ABG showed severe hypoxemia and hypercarbia. For a recent driving physical he was diagnosed with low oxygen saturations. Patient's oxygen saturation the ED was in the low 80s, which was confirmed on ABG with a oxygen saturation of 78% and PO2 of 46. CTA negative for PE. Patient was initiated on BiPAP therapy with consult to pulmonary Dr. Crane. His oxygenation improved but he continued to be hypercapnic. Today a.m. on nasal cannula his pH was 7.26 and PCO2 was increased at 99, patient was somnolent was placed back on BiPAP and repeat ABG at noon showed pH 7.26 PCO2 98 and pO2 70. This was on 16 BiPAP with FiO2 50%. Critical care was consulted. On my evaluation patient is somnolent but wakes up easily. I reduced the PEEP on BiPAP from 12-7 to facilitate better ventilation. A repeat ANG showed only minimal improvement, so decision made to intubate patient. Glidescope with #4 blade was used. Only propofol was used for induction. Initially I had a Grade 1-2 view, but I was unable to pass tube through the vocal cord to trachea in two attempts. Tube slipped out of Laryngeal opening both times. Dr Garrett intubated patient after NM paralysis with succinylcholine. Post intubation ABG showed improvement in hypercapnia and oxygenation. 03/27/16: Patient remains intubated heavily sedated with propofol and fentanyl. Remained severely hypoxemic on 100% FiO2, PEEP12, chest x-ray shows bibasilar infiltrates. Flagyl added. We'll give 1 dose of vancomycin-Adjust antibiotics according to cultures. Patient super morbid obesity may prevent Prone therapy 03/28: Remains hypoxic but ABG shows marginal improvement in oxygenation. WBC increasing 20.1 today. Start vancomycin scheduled. 03/29: Oxygenation is slightly improved. FiO2 reduced to 50% today. Chest x- ray remains unchanged. On sedation hold patient does wake up and follow commands. WBC count remains at 20 03/30 No acute events overnight. Sedated with Diprivan and Fentanyl. Had T: 100.1 at 4 am. WBC trending down 15.9 today from 20. 03/31 Patient remains sedated with Diprivan, Fentanyl and intubated. Tmax 100.1. Patient required increase O2 overnight now on ACV with PEEP: 12 and FIO2 70%. 04/01: Tmax 99.7. No bowel movement since admission. Patient has bowel sounds. Arousable on the ventilator. We'll attempt prone the patient paralyzed to increase oxygenation status. 04/02: MAXIMUM TEMPERATURE 100.9. Currently 97.7. 5 10 cc stools overnight. Placed on Roto prone yesterday. Saturations currently 94% on Flolan. Diuresed overnight. Creatinine still within normal limits. 04/03: Tmax 101. Currently 99.1. Positive BM. Did not tolerate not being unprone this AM. Saturations much improved prone. Tolerating tube feeding. 04/04: Tmax 100.8. Currently 98.8. +2 L past 24 hours. Attempt to on prone today. Positive BM. C. difficile negative. Remains paralyzed. 04/05: Remains sedated, orally intubated on neuromuscular blockade on mechanical ventilation. Remains on Rota prone bed. On insulin drip. 04/06: Remains sedated, orally intubated on neuromuscular blockade, on mechanical ventilation. Remains on Rota prone bed. Insulin drip continues. 04/07 Patient remains on Rotoprone bed sedated with Diprivan, Versed, Fentanyl in addition patient is on Nimbex. Afebrile. On Insulin drip 5u/hr. 04/08 Patient remains sedated and intubated and on Nimbex. Off insulin drip. On PRVC/AC with RR 15, TV 550, IT: 1.65, PEEP: 15 and FIO2 100%. T: 100.2 at 4 am. 04/09 Patient is sedated, intubated and remains on neuromuscular blockade. Vent setting unchanged. afebrile. 04/10 Patient remains sedated and intubated and on Nimbex. On PRVC/AC, RR 15, TV 500, PEEP: 15, FIO2 90%, IT:1.65, on Flolan drip. Remains on Rotoprone bed. 04/11 minimal improvement in oxygenation, FiO2 now at 75 - continue to improve oxygenation, worsening CXR 04/13/10 continue to improve oxygenation DC'd prone position last night 04/14- improving oxygenation, Nimbex discontinued as well as prone position 04/16 Patient is sedated with Versed and Fentanyl and intubated. Off rotoprone bed. On PRVC/AC RR 15, TV 550, IT 1.65, PEEP:15, FIO2 50%. 04/17 Patient remains sedated with Versed and Fentanyl. Afebrile, tolerating tube feeds 04/18 No acute events overnight Sedated and intubated. Afebrile. On PRVC/AC RR 15 , TV 550, IT 1.65, PEEP:15, FIO2 60% 04/19: Spiking fever up to 101, pancultured and 1 dose of vancomycin given by ID. On weaning doses of Flolan. FiO2 down to 50% I have reduced PEEP to 14. Remains critically ill 04/20: No fever. Sputum cx with Staph -S pending. Fio2 50% PEEP remains at 14. TV increased to 650 to improve lung recruitment. On weaning dose of Flolan-DC after current bag 04/21:Afebrile. Hyponatremia resolving, the patient will be placed on free water flushes. 04/22:The patient had an episode of acute desaturation requiring FiO2 increased to 90%. Stat chest x-ray stat ABG aggressive pulmonary toileting and suctioning , resolution of symptoms FiO2 now 55%. ABGs within normal limits. 04/23: Tmax 99.5. Currently afebrile. O2 sat 50%. PEEP down to 13. One small bowel movement overnight. Subjective 04/24: Currently afebrile. O2 sat 45%. PEEP to 12. One BM. Tolerating tube feeds. Objective Vital Signs Date Time Temp Pulse Resp B/P Pulse Ox O2 Delivery O2 Flow Rate FiO2 04/24/16 11:17 94 45 04/24/16 10:00 118 04/24/16 08:00 99.2 15 128/84 Intake and Output 04/23/16 04/23/16 04/24/16 08:00 16:00 00:00 Intake Total 1071 ml 1474 ml 1290 ml Output Total 1050 ml 1850 ml 1500 ml Balance 21 ml -376 ml -210 ml Result Diagram: 04/24/16 0320 04/24/16 0320 Other Results Microbiology Date/Time Procedure Status Source Growth 04/19/16 21:30 Gram Stain - Final Complete Sputum Endotracheal 04/19/16 21:30 Sputum Culture - Final Complete Staphylococcus Aureus 04/19/16 13:30 Aerobic Blood Culture - Final Complete Blood Peripheral Staph Sp Coagulase Negative 04/19/16 13:30 Anaerobic Blood Culture - Final Complete Staphylococcus Epidermidis Imaging Last Impressions Chest X-Ray 04/23/16 0600 Signed Impressions: Service Date/Time: Saturday, April 23, 2016 03:46 - CONCLUSION: Bilateral areas of consolidation or atelectasis being worse on the left. Ubaldo Coombs MD Abdomen X-Ray 03/31/16 0000 Signed Impressions: Service Date/Time: Thursday, March 31, 2016 09:58 - CONCLUSION: Benign abdomen. Rodrigo Martinez MD Chest CT 03/28/16 0836 Signed Impressions: Service Date/Time: Monday, March 28, 2016 09:57 - CONCLUSION: Development areas of air bronchograms and consolidation more prominent in the right and left posterior basilar segments of the lower lobes. ET tube above the chanelle. Bernard Hartman MD CT Angiography 03/24/16 1121 Signed Impressions: Service Date/Time: Thursday, March 24, 2016 12:47 - CONCLUSION: 1. There is respiratory motion artifact but no PE is identified through most of the segmental level pulmonary arteries. 2. Mildly enlarged main pulmonary artery may indicate pulmonary arterial hypertension. 3. 11 mm left lower lobe noncalcified pulmonary nodule. Suggest correlation with any prior imaging studies that could confirm longer-term stability. If none are available consider short-term followup noncontrast chest CT in approximately 3 months. Ubaldo Rodas MD Objective Remarks GENERAL: 50-year-old male, critically ill. Orally intubated on mechanical ventilation, on sedation SKIN: Seborrheic dermatitis of the face HEAD: Atraumatic. Normocephalic. EYES: Pupils equal round and slightly reactive about 3 millimeters bilaterally. ENT: NG tube in place. Orotracheally intubated NECK: Very large neck. Trachea midline. CARDIOVASCULAR: Distant heart sounds. RRR. S1, S2. No S4. Without murmur RESPIRATORY: Orally intubated on mechanical ventilation, Breath sounds equal bilaterally. Diminished breath sounds due to body habitus. GASTROINTESTINAL: Abdomen soft, obese, nontender. Severe central obesity MUSCULOSKELETAL: Extremities with trace to 1+ nonpitting bilateral lower extremity edema. Left antecubital PICC line is clean dry and intact NEUROLOGICAL: Intubated and sedated on the ventilator. Opens eyes appears to track minimally. +ve cough and gag. No withdrawal of extremities Date of Insertion: Apr 02, 2016 Line: PICC Side: Left Location: Antecubital A/P Assessment and Plan Neuro/Psych: Likely SERENITY Toxic metabolic encephalopathy Currently On Fentanyl drip at 150 mcg an hour and Versed infusion 5 mg an hour for sedation and analgesia while intubated Goal of RASS a -2 Daily sedation vacation when appropriate PEEP< 8, FIO2.50 Acetaminophen for fever Pulm: Acute hypoxemic respiratory failure [facility] History of staph aureus pneumonia/HCAP ARDS On PRVC/AC RR 15, TV 650, IT:1.65, PEEP:12, FIO2 45% Continue with vent support keep sat >90%. Bronchodilators every 6 hours and every 2 hours as needed ICU vent bundle. Will need trach once oxygen requirements, PEEP improved. Flolan off since 04/21 on Solumederol 40mg daily CV: Monitor HR and BP keep MAP>65mmHg 2-D echo 03/26 EF 60%. No regional wall motion abnormality. Mild ileus.. Mild MR/TR. /FEN: Hypokalemia Monitor renal function, I/O's, electrolytes replacement per protocol. On Lasix 20mg Q12. K replacement . Scheduled K daily GI: Constipation Moderate protein calorie malnutrition On Glucerna 1.5@45ml/hr with 1 scoop whey protein 3 times a day, Protonix 40mg daily On Reglan 10mg Q8, Senna and Colace twice a day. ID: Staph aureus pneumonia Possible staph bacteremia Pertinent culture 04/19 - blood cultures 2 out of 4 - staph aureus 04/19 - sputum - staph aureus 04/08 - sputum - staph aureus 04/03 - sputum - staph aureus 03/30 - sputum- -staph aureus 03/27 - sputum - staph aureus 03/26 - blood - staph hominis On vancomycin 2 g IV every 12 are since 04/19. Heme: Leukocytosis Monitor CBC/coags Endo: Diabetes mellitus SSI for glycemic control ( high scale) 30 units sliding scale insulin scale insulin in the past 24 hours, Levemir insulin 65 U Q12 MSK Morbid obesity Weight loss encouraged DVT, GI prophylaxis -Bilateral lower extremity SCDs. IV Protonix 40 mg daily. Lovenox 40 mg sq BID LINES: -Left upper extremity PICC line placed 04/15 Critical Care: The total critical care time was 55 minutes. Time to perform other separately billable procedures was not included in the critical care time. Codey Florentino MD Apr 24, 2016 12:14
[2016-04-24] MEDS: ACETAMINOPHEN 650 MG/20.3 ML UDC PO PRN (12:44)
[2016-04-24] MEDS: fentaNYL 2,500 MCG/NS 250 ML IV SCH (14:55)
--- NOTE | 2016-04-24 16:16 | HHI.HCPN ---
Reason for visit a. To assist with evaluation and management of symptoms including: Dyspnea, anxiety b. To assist medical decision maker(s) with: better understanding of current medical conditions; weighing benefits/burdens of medical treatment options; making medical treatment decisions. Subjective/Interval History Pt remains in ICU, on mech vent. Still on sedation fentanyl and versed. Nursing reports when lightened, he has some tachycardia, tachypnea. Tolerating tube feeding. PT seen in room, no visitors present, minimally responsive to my exam. He is on FiO2 45%, and PEEP is now down to 12. Discussed with primary nurse. . Advance Directives Living Will: Completed, but not made available Health Care Surrogate: Copy in medical record Durable Power of Ad Operations Specialist: Completed, but not made available Advance Directive Specifics Date completed: 2016 Health Care Surrogate(s): Names brother Farhat Leger as HCS Objective Vital Signs Date Time Temp Pulse Resp B/P Pulse Ox O2 Delivery O2 Flow Rate FiO2 04/24/16 15:33 94 45 04/24/16 14:00 87 04/24/16 14:00 15 04/24/16 13:43 95 45 04/24/16 12:00 118 04/24/16 12:00 45 04/24/16 12:00 99.9 118 15 100/69 94 04/24/16 11:17 94 45 04/24/16 10:00 118 04/24/16 08:09 95 45 04/24/16 08:00 92 04/24/16 08:00 99.2 98 15 128/84 94 04/24/16 08:00 45 04/24/16 06:00 103 04/24/16 04:08 94 50 04/24/16 04:00 99.0 100 15 111/65 94 04/24/16 04:00 100 04/24/16 04:00 50 04/24/16 02:00 80 04/24/16 00:04 95 50 04/24/16 00:00 99.1 84 15 119/74 95 04/24/16 00:00 50 04/24/16 00:00 84 04/23/16 22:00 71 04/23/16 20:00 50 04/23/16 20:00 86 04/23/16 20:00 99.2 86 15 117/75 96 2/20/17 19:35 96 50 04/23/16 18:05 96 50 04/23/16 18:00 107 Intake & Output 04/24/16 04/24/16 07:00 19:00 Intake Total 2251 ml 1823 ml Output Total 1950 ml 400 ml Balance 301 ml 1423 ml IV Total 1019 ml 1015 ml Tube Feeding 772 ml 308 ml Other 460 ml 500 ml Output Urine Total 1900 ml 400 ml Stool Total 50 ml Physical Exam CONSTITUTIONAL/GENERAL: This is a morbidly obese, critically ill-appearing patient, in ICU on mechanical vent TUBES/LINES/DRAINS: ET tube, OG tube, central line, Becker catheter, rectal drain SKIN: No jaundice, rashes, or lesions.no wounds seen posteriorly. + generalized edema CARDIOVASCULAR: Regular rate and rhythm, no murmurs.I'll be tachycardic, 105. Distant heart sounds. Peripheral pulses symmetric. RESPIRATORY/CHEST: Symmetric, unlabored respirations via ET tube to mechanical vent. Decreased air movement throughout, clear, equal bilaterally. GASTROINTESTINAL: Abdomen soft, obese. Unable to determine to tenderness. TF infusing via OG tube. +liq stool via rectal drain. Bowel sounds hypoactive. MUSCULOSKELETAL: Extremities without clubbing, cyanosis. + generalized edema NEUROLOGICAL: Sedated, minimally responsive to exam. PSYCHIATRIC: No obvious anxiety/depression--limited exam due to clinical condition . Diagnostic Tests Laboratory Laboratory Tests Test 04/21/16 04/21/16 04/22/16 04/22/16 17:15 17:35 05:20 05:30 Potassium Level 4.0 MEQ/L 3.0 MEQ/L (3.5-5.1) (3.5-5.1) Blood Gas Puncture Site RT RADIAL RT BRACHIAL Blood Gas Patient Temperature 98.6 98.6 Blood Gas HCO3 26 mmol/L 27 mmol/L (22-26) (22-26) Blood Gas Base Excess 3.0 mmol/L 3.1 mmol/L (-2-2) (-2-2) Blood Gas Oxygen Saturation 94 % (90-100) 97 % (90-100) Arterial Blood pH 7.49 7.48 (7.380-7.420) (7.380-7.420) Arterial Blood Partial 35 mmHg (38-42) 36 mmHg (38-42) Pressure CO2 Arterial Blood Partial 84 mmHg 153 mmHg Pressure O2 (61-120) (61-120) Arterial Blood Oxygen Content 17.4 Vol % 19.1 Vol % (12.0-20.0) (12.0-20.0) Arterial Blood 1.3 % (0-4) 1.1 % (0-4) Carboxyhemoglobin Arterial Blood Methemoglobin 1.1 % (0-2) 1.1 % (0-2) Blood Gas Hemoglobin 13.2 G/DL 13.9 G/DL (12.0-16.0) (12.0-16.0) Oxygen Delivery Device VENTILATOR VENTILATOR Blood Gas Ventilator Setting PRVC/AC Blood Gas Inspired Oxygen 50 % 50 % White Blood Count 13.3 TH/MM3 (4.0-11.0) Red Blood Count 4.79 MIL/MM3 (4.50-5.90) Hemoglobin 12.9 GM/DL (13.0-17.0) Hematocrit 40.0 % (39.0-51.0) Mean Corpuscular Volume 83.5 FL (80.0-100.0) Mean Corpuscular Hemoglobin 26.9 PG (27.0-34.0) Mean Corpuscular Hemoglobin 32.2 % Concent (32.0-36.0) Red Cell Distribution Width 15.2 % (11.6-17.2) Platelet Count 167 TH/MM3 (150-450) Mean Platelet Volume 10.0 FL (7.0-11.0) Sodium Level 147 MEQ/L (136-145) Chloride Level 106 MEQ/L (98-107) Carbon Dioxide Level 30.0 MEQ/L (21.0-32.0) Anion Gap 11 MEQ/L (5-15) Blood Urea Nitrogen 44 MG/DL (7-18) Creatinine 0.64 MG/DL (0.60-1.30) Estimat Glomerular Filtration 132 ML/MIN Rate (>89) Random Glucose 172 MG/DL (74-106) Calcium Level 9.2 MG/DL (8.5-10.1) Phosphorus Level 4.6 MG/DL (2.5-4.9) Magnesium Level 2.5 MG/DL (1.5-2.5) Vancomycin Level Trough 18.7 MCG/ML (5.0-10.0) Test 04/22/16 04/22/16 04/23/16 04/23/16 12:20 16:40 05:20 06:03 Blood Gas Puncture Site RT RADIAL LT RADIAL Blood Gas Patient Temperature 98.6 98.6 Blood Gas HCO3 26 mmol/L 27 mmol/L (22-26) (22-26) Blood Gas Base Excess 2.1 mmol/L 3.0 mmol/L (-2-2) (-2-2) Blood Gas Oxygen Saturation 97 % (90-100) 95 % (90-100) Arterial Blood pH 7.43 7.42 (7.380-7.420) (7.380-7.420) Arterial Blood Partial 40 mmHg (38-42) 43 mmHg (38-42) Pressure CO2 Arterial Blood Partial 156 mmHg 94 mmHg Pressure O2 (61-120) (61-120) Arterial Blood Oxygen Content 19.1 Vol % 21.5 Vol % (12.0-20.0) (12.0-20.0) Arterial Blood 1.0 % (0-4) 0.9 % (0-4) Carboxyhemoglobin Arterial Blood Methemoglobin 1.2 % (0-2) 1.1 % (0-2) Blood Gas Hemoglobin 13.9 G/DL 16.1 G/DL (12.0-16.0) (12.0-16.0) Oxygen Delivery Device VENTILATOR VENTILATOR Blood Gas Ventilator Setting PRVC/AC Blood Gas Inspired Oxygen 80 % 50 % Potassium Level 4.3 MEQ/L 3.1 MEQ/L (3.5-5.1) (3.5-5.1) White Blood Count 14.1 TH/MM3 (4.0-11.0) Red Blood Count 4.75 MIL/MM3 (4.50-5.90) Hemoglobin 13.2 GM/DL (13.0-17.0) Hematocrit 39.8 % (39.0-51.0) Mean Corpuscular Volume 83.7 FL (80.0-100.0) Mean Corpuscular Hemoglobin 27.7 PG (27.0-34.0) Mean Corpuscular Hemoglobin 33.1 % Concent (32.0-36.0) Red Cell Distribution Width 15.5 % (11.6-17.2) Platelet Count 168 TH/MM3 (150-450) Mean Platelet Volume 9.8 FL (7.0-11.0) Sodium Level 146 MEQ/L (136-145) Chloride Level 105 MEQ/L (98-107) Carbon Dioxide Level 29.2 MEQ/L (21.0-32.0) Anion Gap 12 MEQ/L (5-15) Blood Urea Nitrogen 40 MG/DL (7-18) Creatinine 0.60 MG/DL (0.60-1.30) Estimat Glomerular Filtration 143 ML/MIN Rate (>89) Random Glucose 155 MG/DL (74-106) Calcium Level 9.2 MG/DL (8.5-10.1) Phosphorus Level 4.8 MG/DL (2.5-4.9) Magnesium Level 2.4 MG/DL (1.5-2.5) Test 04/23/16 04/24/16 04/24/16 16:30 03:20 05:45 Potassium Level 4.6 MEQ/L 3.7 MEQ/L (3.5-5.1) (3.5-5.1) White Blood Count 15.6 TH/MM3 (4.0-11.0) Red Blood Count 5.05 MIL/MM3 (4.50-5.90) Hemoglobin 13.5 GM/DL (13.0-17.0) Hematocrit 42.1 % (39.0-51.0) Mean Corpuscular Volume 83.3 FL (80.0-100.0) Mean Corpuscular Hemoglobin 26.8 PG (27.0-34.0) Mean Corpuscular Hemoglobin 32.1 % Concent (32.0-36.0) Red Cell Distribution Width 15.2 % (11.6-17.2) Platelet Count 181 TH/MM3 (150-450) Mean Platelet Volume 9.9 FL (7.0-11.0) Neutrophils (%) (Auto) 78.7 % (16.0-70.0) Lymphocytes (%) (Auto) 14.3 % (9.0-44.0) Monocytes (%) (Auto) 5.2 % (0.0-8.0) Eosinophils (%) (Auto) 1.4 % (0.0-4.0) Basophils (%) (Auto) 0.4 % (0.0-2.0) Neutrophils # (Auto) 12.3 TH/MM3 (1.8-7.7) Lymphocytes # (Auto) 2.2 TH/MM3 (1.0-4.8) Monocytes # (Auto) 0.8 TH/MM3 (0-0.9) Eosinophils # (Auto) 0.2 TH/MM3 (0-0.4) Basophils # (Auto) 0.1 TH/MM3 (0-0.2) CBC Comment DIFF FINAL Differential Comment Prothrombin Time 10.8 SEC (9.8-11.6) Prothromb Time International 1.0 RATIO Ratio Activated Partial 23.8 SEC Thromboplast Time (24.3-30.1) Sodium Level 146 MEQ/L (136-145) Chloride Level 108 MEQ/L (98-107) Carbon Dioxide Level 28.9 MEQ/L (21.0-32.0) Anion Gap 9 MEQ/L (5-15) Blood Urea Nitrogen 35 MG/DL (7-18) Creatinine 0.60 MG/DL (0.60-1.30) Estimat Glomerular Filtration 143 ML/MIN Rate (>89) Random Glucose 158 MG/DL (74-106) Lactic Acid Level 2.1 mmol/L (0.4-2.0) Calcium Level 9.1 MG/DL (8.5-10.1) Phosphorus Level 4.0 MG/DL (2.5-4.9) Magnesium Level 2.4 MG/DL (1.5-2.5) Total Bilirubin 0.8 MG/DL (0.2-1.0) Aspartate Amino Transf 33 U/L (15-37) (AST/SGOT) Alanine Aminotransferase 179 U/L (12-78) (ALT/SGPT) Alkaline Phosphatase 84 U/L (45-117) Total Creatine Kinase 21 U/L (39-308) Total Protein 7.1 GM/DL (6.4-8.2) Albumin 3.1 GM/DL (3.4-5.0) Vancomycin Level Trough 21.3 MCG/ML (5.0-10.0) Result Diagram: 04/24/16 0320 04/24/16 0320 Imaging Last Impressions Chest X-Ray 04/23/16 0600 Signed Impressions: Service Date/Time: Saturday, April 23, 2016 03:46 - CONCLUSION: Bilateral areas of consolidation or atelectasis being worse on the left. Ubaldo Coombs MD Abdomen X-Ray 03/31/16 0000 Signed Impressions: Service Date/Time: Thursday, March 31, 2016 09:58 - CONCLUSION: Benign abdomen. Rodrigo Martinez MD Chest CT 03/28/16 0836 Signed Impressions: Service Date/Time: Monday, March 28, 2016 09:57 - CONCLUSION: Development areas of air bronchograms and consolidation more prominent in the right and left posterior basilar segments of the lower lobes. ET tube above the chanelle. Bernard Hartman MD CT Angiography 03/24/16 1121 Signed Impressions: Service Date/Time: Thursday, March 24, 2016 12:47 - CONCLUSION: 1. There is respiratory motion artifact but no PE is identified through most of the segmental level pulmonary arteries. 2. Mildly enlarged main pulmonary artery may indicate pulmonary arterial hypertension. 3. 11 mm left lower lobe noncalcified pulmonary nodule. Suggest correlation with any prior imaging studies that could confirm longer-term stability. If none are available consider short-term followup noncontrast chest CT in approximately 3 months. Ubaldo Rodas MD Procedures 03/26intubated 03/26 left IJ central line 04/02right IJ central line . Assessment and Plan Disease Oriented Problem List: (1) Acute respiratory failure with hypoxia (2) Staphylococcus aureus pneumonia (3) Pulmonary edema (4) Hypoxia (5) JACOB (obstructive sleep apnea) (6) Pulmonary nodule, left (7) Obesity hypoventilation syndrome (8) Morbid obesity with BMI of 50.0-59.9, adult (9) Diabetes mellitus type 2 in obese Symptom Scale: (1) Anxiety (2) Dyspnea (3) Encephalopathy Pertinent Non-Medical Issues Psychosocial:Patient is , shares an apartment locally with his brother. Apparently has 2 other siblings as well as 2 adult children who live in the [place] area. Has designated his brother Farhat as healthcare surrogate. 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 Spiritual: Legal:Patient is not able to participate in decision-making due to clinical condition. Has completed designation naming his brother Farhat as HCS. Ethical issues impacting care: Important Contacts brother Farhat Leger [phone] (HCS) Brother Gagandeep Leger [phone] . Prognosis This patient was admitted for further evaluation of obesity hypoventilation syndrome; absolutely developed acute respiratory failure requiring mechanical ventilation. Has continued to require high levels of ventilator support, though other organ functions remain preserved. Possible he can recover from this however currently remains in critical condition, prognosis guarded. . Code Status: Full Code (per attending documentation ) Plan * Legal decision maker: Patiently currently unable to participate in goals / decision-making due to clinical condition. It is not clear if he will regain decision-making capacity. He has designated his brother Farhat as healthcare surrogate. * Goals: 04/11/16: Farhat ([facility]) says he has spoken with the patient's two daughters in [place] and they want to continue aggressive care and FULL CODE status. He says he, the healthcare surrogate, would lean toward de- escalation of care but he wants to honor the daughter's wishes for continued aggressive care. 04/16/16 --met with daughters as well as brother. Family seems to have overall good understanding. They remain cautiously optimistic. Goals remain aggressive. 04/19/16: Spoke with brother/ [facility] Farhat, goals remain aggressive * CODE STATUS: Full code. * SYMPTOMS: --Dyspnea-emergently intubated, has remained on high ventilator settings as well as prone bed-- prone bed d/c. Currently breathing comfortably on mechanical vent, on sedatives. Mild tachypnea reported when lightened. (IV fentanyl, Versed ) --Anxiety-risk for related to prolonged intubation, hospitalization, underlying respiratory issues; currently appears comfortable on multiple sedatives (IV fentanyl, Versed) as becomes more alert/responsive will need ongoing assessments. --encephalopathy: Multifactorial, metabolic. Has been on sedatives 28 days, has been off of Nimbex for over a week now though was on that for many days. Minimally responsive to exam. * Palliative care will continue to follow during hospital course as condition evolves, to assist patient/decision-maker with understanding of medical conditions, weighing benefits/burdens of treatment options, for clarification of goals of treatment. Additionally will assist with any symptoms of palliative concern Time Spent Total Floor Time (mins): 29 Face to Face Time (mins): 16 >50% Counseling/Coord of Care: Yes (d/w RN) Attestation To help prompt me to consider important information that might be impacting today's encounter and assessment, information from prior notes written by myself or my colleagues may have been "brought forward" into today's note. My signature on this note, however, is an attestation that I personally performed the exam, history, and/or decision-making noted today, and, unless otherwise indicated, the interactions with patient, family, and staff as well as the review of records all occurred today. I also attest that the listed assessment and stated plan reflect my best clinical judgment today based on the combination of historical information, prior notes, and today's exam/ interactions. When time spent is documented, it refers only to time spent today by the signer, or if indicated, combined time spent today by collaborating physician/nurse practitioner. Jessica Leach MD Apr 24, 2016 16:15
--- NOTE | 2016-04-24 16:44 | HHI.PR ---
Subjective Remarks ON THE VENT SEDATED FIO2 AT 80% Objective Vital Signs Date Time Temp Pulse Resp B/P Pulse Ox O2 Delivery O2 Flow Rate FiO2 04/24/16 16:00 86 04/24/16 16:00 45 04/24/16 16:00 98.4 87 15 103/63 95 04/24/16 15:33 94 45 04/24/16 14:00 87 04/24/16 14:00 15 04/24/16 13:43 95 45 04/24/16 12:00 118 04/24/16 12:00 45 04/24/16 12:00 99.9 118 15 100/69 94 04/24/16 11:17 94 45 04/24/16 10:00 118 04/24/16 08:09 95 45 04/24/16 08:00 92 04/24/16 08:00 99.2 98 15 128/84 94 04/24/16 08:00 45 04/24/16 06:00 103 04/24/16 04:08 94 50 04/24/16 04:00 99.0 100 15 111/65 94 04/24/16 04:00 100 04/24/16 04:00 50 04/24/16 02:00 80 04/24/16 00:04 95 50 04/24/16 00:00 99.1 84 15 119/74 95 04/24/16 00:00 50 04/24/16 00:00 84 04/23/16 22:00 71 04/23/16 20:00 50 04/23/16 20:00 86 04/23/16 20:00 99.2 86 15 117/75 96 04/23/16 19:35 96 50 04/23/16 18:05 96 50 04/23/16 18:00 107 I/O 04/23/16 04/23/16 04/23/16 04/24/16 04/24/16 04/24/16 07:00 15:00 23:00 07:00 15:00 23:00 Intake Total 1071 ml 1474 ml 1290 ml 961 ml 1823 ml Output Total 1050 ml 1850 ml 1500 ml 450 ml 400 ml Balance 21 ml -376 ml -210 ml 511 ml 1423 ml IV Total 319 ml 761 ml 795 ml 224 ml 1015 ml Tube Feeding 352 ml 313 ml 435 ml 337 ml 308 ml Other 400 ml 400 ml 60 ml 400 ml 500 ml Output Urine Total 1050 ml 1800 ml 1500 ml 400 ml 400 ml Stool Total 50 ml 0 ml 50 ml Tube Feeding Residual Discard 0 ml Result Diagram: 04/24/1631904/24/16 032 Objective Remarks GENERAL: SKIN: Warm and dry. HEAD: Atraumatic. Normocephalic. EYES: Pupils equal and round. No scleral icterus. No injection or drainage. ENT: No nasal bleeding or discharge. Mucous membranes pink and moist. NECK: Trachea midline. No JVD. CARDIOVASCULAR: Regular rate and rhythm. RESPIRATORY: No accessory muscle use. Clear to auscultation. Breath sounds equal bilaterally. GASTROINTESTINAL: Abdomen soft, non-tender, nondistended. Hepatic and splenic margins not palpable. MUSCULOSKELETAL: Extremities without clubbing, cyanosis, or edema. No obvious deformities. NEUROLOGICAL: Awake and alert. No obvious cranial nerve deficits. Motor grossly within normal limits. Five out of 5 muscle strength in the arms and legs. Normal speech. PSYCHIATRIC: Appropriate mood and affect; insight and judgment normal. Assessment and Plan Assessment and Plan RESPIRATORY FAILURE SEPSIS ARDS JACOB/CSA PLAN VENT SUPPORT FIO2 INCREASED TO 0.8 PULM TOILET WEAN TOLERATED. CHECK ABG, CXRAY Orlando Perry MD Apr 24, 2016 16:43
[2016-04-24] MEDS: PANTOPRAZOLE SODIUM 40 MG VIAL IV PUSH SCH (17:43)
[2016-04-24] MEDS: MIDAZOLAM 100 MG/ML INJ 100 ML IV SCH (17:43)
[2016-04-24] MEDS: VANCOMYCIN INJ 1,500 MG in SODIUM CHLORID 0.9% 500 ML INJ 500 ML IV SCH (22:50)
[2016-04-25] VITALS (17 sets, daily range): BP systolic 104–159; BP diastolic 49–89; PULSE 81–130; RESP 15–23; TEMP 99–102.3; O2SAT 91–98
[2016-04-25] MEDS: INSULIN NovoLIN REGULAR SUPPLEMENTAL SCALE SQ SCH ×4 (00:27→18:00)
[2016-04-25] MEDS: ARTIFICIAL TEARS OPTH SOLN 15 ML BTL EACH EYE SCH ×6 (00:27→19:35)
[2016-04-25] MEDS: RESP: ALBUTEROL 2.5 MG/IPRATROPIUM 0.5 MG NEB (SCH) NEB ×4 (04:06→19:49)
[2016-04-25 04:20] LABS: AUTOMATED NEUTROPHIL # 13.4 TH/MM3 (1.8-7.7); BASOPHIL # 0.1 TH/MM3 (0-0.2); BASOPHIL % 0.4 % (0.0-2.0); EOSINOPHIL # 0.2 TH/MM3 (0-0.4); EOSINOPHIL % 1.4 % (0.0-4.0); HEMATOCRIT 38.4 % (39.0-51.0); HEMO FLAGS DIFF FINAL; LYMPH % 9.8 % (9.0-44.0); LYMPHOCYTE # 1.6 TH/MM3 (1.0-4.8); MEAN CORPUSCULAR HEMOGLOBIN 27.4 PG (27.0-34.0); MONO % 4.9 % (0.0-8.0); NEUT % 83.5 % (16.0-70.0); PLATELET COUNT 171 TH/MM3 (150-450); RED BLOOD COUNT 4.63 MIL/MM3 (4.50-5.90); RED CELL DISTRIBUTION WIDTH 15.2 % (11.6-17.2)
[2016-04-25 04:32] LABS: BICARBONATE 29.5 MEQ/L (21.0-32.0); POTASSIUM 3.5 MEQ/L (3.5-5.1)
[2016-04-25] MEDS: FREE WATER G-TUBE SCH ×3 (06:00→17:15)
[2016-04-25] MEDS: ENOXAPARIN SODIUM 40 MG/0.4 ML SYRINGE SQ SCH ×2 (06:03→17:14)
[2016-04-25] MEDS: METOCLOPRAMIDE HCL 10 MG/2 ML VIAL IV PUSH SCH ×3 (06:03→19:35)
[2016-04-25] MEDS: BENEPROTEIN POWDER 1 PACK G-TUBE SCH ×3 (09:00→17:15)
[2016-04-25] MEDS: INSULIN DETEMIR 100 UNITS/ML VIAL SQ SCH ×2 (09:00→19:35)
--- NOTE | 2016-04-25 09:13 | HHI.IDPN ---
Subjective Subjective Remarks Notes reviewed. Temps occ 99+ On the vent, FiO2 50%, PEEP still at 12 WBC slightly higher, creeping up Last UA 04/19 ok Line - PICC Good UO Off flolan Nothing new on C/S is a 50 years old obese male with past medical history significant for undiagnosed sleep apnea, super morbid obesity, type 2 diabetes was brought to the emergency department on 03/24/16. ID following for MSSA pneumonia. Antibiotics Vancomycin IV Lines PICC 04/15 Past Medical History Reviewed Allergies: Coded Allergies: Penicillin (Verified Allergy, Severe, Swelling, 03/24/16) Tetanus Toxoid (Verified Allergy, Unknown, Swelling, 03/24/16) Objective . Vital Signs Date Time Temp Pulse Resp B/P Pulse Ox O2 Delivery O2 Flow Rate FiO2 04/25/16 06:00 101 04/25/16 04:06 94 50 04/25/16 04:00 99.2 97 15 105/79 95 04/25/16 04:00 45 04/25/16 04:00 97 04/25/16 02:00 83 04/25/16 01:15 95 50 04/25/16 00:00 45 04/25/16 00:00 99.0 85 15 107/73 95 04/25/16 00:00 86 04/24/16 22:00 86 04/24/16 20:00 99.0 91 15 129/84 96 04/24/16 20:00 91 04/24/16 20:00 45 04/24/16 19:55 94 50 04/24/16 18:00 88 04/24/16 16:00 86 04/24/16 16:00 45 04/24/16 16:00 98.4 87 15 103/63 95 04/24/16 15:33 94 45 04/24/16 14:00 87 04/24/16 14:00 15 04/24/16 13:43 95 45 04/24/16 12:00 118 04/24/16 12:00 45 04/24/16 12:00 99.9 118 15 100/69 94 04/24/16 11:17 94 45 04/24/16 10:00 118 04/24/16 04/24/16 04/25/16 15:00 23:00 07:00 Intake Total 1823 ml 693 ml 1407 ml Output Total 400 ml 500 ml 1050 ml Balance 1423 ml 193 ml 357 ml IV Total 1015 ml 245 ml 672 ml Tube Feeding 308 ml 388 ml 335 ml Other 500 ml 60 ml 400 ml Output Urine Total 400 ml 500 ml 1000 ml Stool Total 0 ml 50 ml . Laboratory Tests Test 04/24/16 04/25/16 03:20 03:30 White Blood Count 15.6 TH/MM3 16.0 TH/MM3 Red Blood Count 5.05 MIL/MM3 4.63 MIL/MM3 Hemoglobin 13.5 GM/DL 12.7 GM/DL Hematocrit 42.1 % 38.4 % Mean Corpuscular Volume 83.3 FL 83.0 FL Mean Corpuscular Hemoglobin 26.8 PG 27.4 PG Mean Corpuscular Hemoglobin 32.1 % 33.0 % Concent Red Cell Distribution Width 15.2 % 15.2 % Platelet Count 181 TH/MM3 171 TH/MM3 Mean Platelet Volume 9.9 FL 10.0 FL Neutrophils (%) (Auto) 78.7 % 83.5 % Lymphocytes (%) (Auto) 14.3 % 9.8 % Monocytes (%) (Auto) 5.2 % 4.9 % Eosinophils (%) (Auto) 1.4 % 1.4 % Basophils (%) (Auto) 0.4 % 0.4 % Neutrophils # (Auto) 12.3 TH/MM3 13.4 TH/MM3 Lymphocytes # (Auto) 2.2 TH/MM3 1.6 TH/MM3 Monocytes # (Auto) 0.8 TH/MM3 0.8 TH/MM3 Eosinophils # (Auto) 0.2 TH/MM3 0.2 TH/MM3 Basophils # (Auto) 0.1 TH/MM3 0.1 TH/MM3 CBC Comment DIFF FINAL DIFF FINAL Differential Comment Laboratory Tests Test 04/23/16 04/24/16 04/25/16 16:30 03:20 03:30 Potassium Level 4.6 MEQ/L 3.7 MEQ/L 3.5 MEQ/L Sodium Level 146 MEQ/L 145 MEQ/L Chloride Level 108 MEQ/L 107 MEQ/L Carbon Dioxide Level 28.9 MEQ/L 29.5 MEQ/L Anion Gap 9 MEQ/L 9 MEQ/L Blood Urea Nitrogen 35 MG/DL 34 MG/DL Creatinine 0.60 MG/DL 0.63 MG/DL Estimat Glomerular Filtration 143 ML/MIN 135 ML/MIN Rate Random Glucose 158 MG/DL 170 MG/DL Lactic Acid Level 2.1 mmol/L Calcium Level 9.1 MG/DL 9.0 MG/DL Phosphorus Level 4.0 MG/DL Magnesium Level 2.4 MG/DL Total Bilirubin 0.8 MG/DL Aspartate Amino Transf 33 U/L (AST/SGOT) Alanine Aminotransferase 179 U/L (ALT/SGPT) Alkaline Phosphatase 84 U/L Total Creatine Kinase 21 U/L Total Protein 7.1 GM/DL Albumin 3.1 GM/DL Imaging Chest X-Ray 04/23/16 0600 Signed Impressions: Service Date/Time: Saturday, April 23, 2016 03:46 - CONCLUSION: Bilateral areas of consolidation or atelectasis being worse on the left. Ubaldo Coombs MD Abdomen X-Ray 03/31/16 0000 Signed Impressions: Service Date/Time: Thursday, March 31, 2016 09:58 - CONCLUSION: Benign abdomen. Rodrigo Martinez MD Chest CT 03/28/16 0836 Signed Impressions: Service Date/Time: Monday, March 28, 2016 09:57 - CONCLUSION: Development areas of air bronchograms and consolidation more prominent in the right and left posterior basilar segments of the lower lobes. ET tube above the chanelle. Bernard Hartman MD CT Angiography 03/24/16 1121 Signed Impressions: Service Date/Time: Thursday, March 24, 2016 12:47 - CONCLUSION: 1. There is respiratory motion artifact but no PE is identified through most of the segmental level pulmonary arteries. 2. Mildly enlarged main pulmonary artery may indicate pulmonary arterial hypertension. 3. 11 mm left lower lobe noncalcified pulmonary nodule. Suggest correlation with any prior imaging studies that could confirm longer-term stability. If none are available consider short-term followup noncontrast chest CT in approximately 3 months. Ubaldo Rodas MD Chest X-Ray 04/19/16 0000 Signed Impressions: Service Date/Time: April 03:20 - CONCLUSION: 1. Cardiomegaly and findings of congestive heart failure. There has been no significant change when compared to the prior exam. Kyaw Rojo MD Chest X-Ray 04/18/16 0000 Signed Impressions: Service Date/Time: Monday, April 18, 2016 09:59 - CONCLUSION: 1. Support equipment in good position. 2. Small left basilar effusion and consolidative changes in the left lower lobe and perihilar region on the right. Dc Barton MD Chest X-Ray 04/16/16 0600 Signed Impressions: Service Date/Time: Saturday, April 16, 2016 03:58 - CONCLUSION: 1. Cardiomegaly. Bilateral lower lobe atelectasis versus pneumonia. There has been no significant change when compared to the prior exam. Kyaw Rojo MD Abdomen X-Ray 03/31/16 0000 Signed Impressions: Service Date/Time: Thursday, March 31, 2016 09:58 - CONCLUSION: Benign abdomen. Rodrigo Martinez MD Chest CT 03/28/16 0836 Signed Impressions: Service Date/Time: Monday, March 28, 2016 09:57 - CONCLUSION: Development areas of air bronchograms and consolidation more prominent in the right and left posterior basilar segments of the lower lobes. ET tube above the chanelle. Bernard Hartman MD CT Angiography 03/24/16 1121 Signed Impressions: Service Date/Time: Thursday, March 24, 2016 12:47 - CONCLUSION: 1. There is respiratory motion artifact but no PE is identified through most of the segmental level pulmonary arteries. 2. Mildly enlarged main pulmonary artery may indicate pulmonary arterial hypertension. 3. 11 mm left lower lobe noncalcified pulmonary nodule. Suggest correlation with any prior imaging studies that could confirm longer-term stability. If none are available consider short-term followup noncontrast chest CT in approximately 3 months. Ubaldo Rodas MD Chest X-Ray 04/12/16 0600 Signed Impressions: Service Date/Time: April 04:14 - CONCLUSION: Worsening appearance of the chest. Henrry Andrea MD Chest X-Ray 04/11/16 0000 Signed Impressions: Service Date/Time: Monday, April 11, 2016 04:09 - CONCLUSION: No significant change has occurred. Henrry Andrea MD Chest X-Ray 04/09/16 0900 Signed Impressions: Service Date/Time: Saturday, April 09, 2016 09:12 - CONCLUSION: 1. Diffuse alveolar consolidation of the left lung and right upper lung field consistent with pneumonia and/or asymmetric pulmonary edema. Clinical correlation is recommended. 2. Endotracheal tube has its tip 1 cm above the chanelle. This could be pulled back 2 cm for more optimal position. Farhat Montes MD Chest X-Ray 04/05/16599 Signed Impressions: Service Date/Time: April 03:25 - CONCLUSION: 1. Improved basilar consolidation. Residual versus developing right midlung consolidation. 2. Small bilateral pleural effusions are suspected. 3. No change cardiomegaly or lines/tubes. Ubaldo Ortiz MD Chest X-Ray 04/04/16599 Signed Impressions: Service Date/Time: Monday, April 04, 2016 04:44 - CONCLUSION: Worsening bilateral airspace opacities, especially left perihilar. Ubaldo Ortiz MD Chest X-Ray 04/04/16599 Signed Impressions: Service Date/Time: Monday, April 04, 2016 04:44 - CONCLUSION: Worsening bilateral airspace opacities, especially left perihilar. Ubaldo Ortiz MD Chest X-Ray 04/03/16599 Signed Impressions: Service Date/Time: Sunday, April 03, 2016 00:16 - CONCLUSION: Potential developing pneumonia in the right upper lobe. Bibasilar atelectasis modestly worse in the interim. Ubaldo Ortiz MD Chest X-Ray 04/03/16599 Signed Impressions: Service Date/Time: Sunday, April 03, 2016 00:16 - CONCLUSION: Potential developing pneumonia in the right upper lobe. Bibasilar atelectasis modestly worse in the interim. Ubaldo Ortiz MD Chest X-Ray 04/02/16 0925 Signed Impressions: Service Date/Time: Saturday, April 02, 2016 09:22 - CONCLUSION: Place a right jugular catheter terminates superior vena cava with no pneumothorax. Bernard Hartman MD Physical Exam GENERAL: Morbidly obese, awake, focusing, responding, on the vent, NAD SKIN: Cool skin, no cyanosis. No generalized rash HEENT: No icterus, ET in place. Some conjunctival injection R eye, better CHEST: Coarse BS bilaterally, decreased at bases CARDIAC: regular, no murmur ABDOMEN: soft, obese, (+) BS : Becker in place, urine looks clear MUSCULOSKELETAL: Extremities without clubbing, cyanosis. Has improving pedal edema and edema hands NEUROLOGICAL: Awake, responding PSYCH: Unable to assess LINE: No evidence of infection Assessment & Plan Remarks IMPRESSION Leukocytosis, persistent, rising slowly - has been on adequate Abx for pathogens isolated Pneumonia, C/S MSSA - Last CXR stable - S/P RX JACOB Respiratory failure, improving O2 requirement - has extensive infiltrates Morbid obesity Allergy to PCN, swelling Fevers, recurrent - has (+) BC, Staph epi one out 2 BC, has new line PICC - ?new VAP, has MSSA again RECOMMENDATION Monitor progress Repeat UA and C/S Follow CBC Monitor temps Continue IV vancomycin. Elisha Painter MD Apr 25, 2016 09:13
[2016-04-25] MEDS: LACTOBACILLUS ACIDOPHILUS TAB PO SCH ×3 (09:49→17:14)
[2016-04-25] MEDS: SENNOSIDES SYRUP 8.8 MG/5 ML CUP PO/TUBE SCH ×2 (09:49→19:35)
[2016-04-25] MEDS: POLYETHYLENE GLYCOL 17 GM PKG PO SCH ×2 (09:49→19:36)
[2016-04-25] MEDS: DOCUSATE SODIUM 100 MG/10 ML UDC PO SCH ×2 (09:49→19:34)
[2016-04-25] MEDS: FUROSEMIDE 20 MG/2 ML VIAL IV PUSH SCH ×2 (09:50→19:36)
[2016-04-25] MEDS: methylPREDNISolone SOD SUCC 40 MG/1 ML VIAL IV PUSH SCH (09:50)
[2016-04-25] MEDS: SODIUM CHLORIDE 0.9% FLUSH 5 ML FLUSH IVF SCH (09:51)
[2016-04-25] MEDS: BETAMETHASONE/CLOTRIMAZOLE CREAM 15 GM TOPICAL SCH ×2 (09:52→19:35)
[2016-04-25] MEDS: CHLORHEXIDINE 0.12% (ORAL KIT) 15 ML CUP MT SCH ×2 (09:53→19:36)
[2016-04-25] MEDS: ARTIFICIAL TEARS OPTH OINT 3.5 APPLIC/3.5 GM TUBO EACH EYE SCH ×2 (09:53→19:36)
[2016-04-25] MEDS: POTASSIUM CHLORIDE 25 MEQ EFFERVESCENT TAB PO SCH ×2 (09:59→19:34)
[2016-04-25 11:38] LABS: BLOOD, URINE MOD (NEG); CALCIUM OXALATE CRYSTALS,URINE OCC /hpf; COMMENT (UR) CATH-CULTURE IND; CULTURE IF INDICATED CATH CULTURE IND; GLUCOSE,URINE NEG (NEG); HYALINE CAST, URINE 1 /lpf (RARE); KETONE, URINE NEG (NEG); MUCUS URINE FEW /lpf (OCC); NITRITE,URINE NEG (NEG); SQUAMOUS EPITHELIAL CELL URINE <1 /hpf (0-5); TRANSITIONAL EPI CELLS, URINE <1 /hpf; URINE COLOR YELLOW (YELLW/STRAW)
[2016-04-25] MEDS: VANCOMYCIN INJ 1,500 MG in SODIUM CHLORID 0.9% 500 ML INJ 500 ML IV SCH (11:38)
[2016-04-25 11:39] LABS: BACTERIA, URINE FEW /hpf
--- NOTE | 2016-04-25 14:39 | RADRPT ---
EXAM DATE/TIME: 04/25/2016 13:33 [facility] COMPARISON: CHEST SINGLE AP, April 23, 2016, 3:46. INDICATIONS : Respiratory distress MEDICAL HISTORY : Diabetes mellitus type II. SURGICAL HISTORY : None. ENCOUNTER: Subsequent ACUITY: 4 - 6 days PAIN SCORE: Non-responsive. LOCATION: Bilateral chest FINDINGS: ET tube remains above the chanelle a nasogastric tube is in the midline to the stomach and left PICC li ne in place. Hyperaeration is appreciated with elevated hemidiaphragms mild basilar opacities unchang ed CONCLUSION: Stable chest Bernard Hartman MD on April 25, 2016 at 14:37 Board Certified Radiologist. This report was verified electronically.
[2016-04-25] MEDS: MIDAZOLAM 100 MG/ML INJ 100 ML IV SCH (14:52)
--- NOTE | 2016-04-25 15:13 | HHI.CCPN ---
Subjective Remarks/Hospital Course Patient is a 50 years old obese male with past medical history significant for undiagnosed sleep apnea, super morbid obesity, type 2 diabetes was brought to the emergency department on 03/24/16 after feeling light headed and dizzy. On presentation here was found to be hypoxemic and ABG showed severe hypoxemia and hypercarbia. For a recent driving physical he was diagnosed with low oxygen saturations. Patient's oxygen saturation the ED was in the low 80s, which was confirmed on ABG with a oxygen saturation of 78% and PO2 of 46. CTA negative for PE. Patient was initiated on BiPAP therapy with consult to pulmonary Dr. Crane. His oxygenation improved but he continued to be hypercapnic. Today a.m. on nasal cannula his pH was 7.26 and PCO2 was increased at 99, patient was somnolent was placed back on BiPAP and repeat ABG at noon showed pH 7.26 PCO2 98 and pO2 70. This was on 16 BiPAP with FiO2 50%. Critical care was consulted. On my evaluation patient is somnolent but wakes up easily. I reduced the PEEP on BiPAP from 12-7 to facilitate better ventilation. A repeat ANG showed only minimal improvement, so decision made to intubate patient. Glidescope with #4 blade was used. Only propofol was used for induction. Initially I had a Grade 1-2 view, but I was unable to pass tube through the vocal cord to trachea in two attempts. Tube slipped out of Laryngeal opening both times. Dr Garrett intubated patient after NM paralysis with succinylcholine. Post intubation ABG showed improvement in hypercapnia and oxygenation. 03/27/16: Patient remains intubated heavily sedated with propofol and fentanyl. Remained severely hypoxemic on 100% FiO2, PEEP12, chest x-ray shows bibasilar infiltrates. Flagyl added. We'll give 1 dose of vancomycin-Adjust antibiotics according to cultures. Patient super morbid obesity may prevent Prone therapy 03/28: Remains hypoxic but ABG shows marginal improvement in oxygenation. WBC increasing 20.1 today. Start vancomycin scheduled. 03/29: Oxygenation is slightly improved. FiO2 reduced to 50% today. Chest x- ray remains unchanged. On sedation hold patient does wake up and follow commands. WBC count remains at 20 03/30 No acute events overnight. Sedated with Diprivan and Fentanyl. Had T: 100.1 at 4 am. WBC trending down 15.9 today from 20. 03/31 Patient remains sedated with Diprivan, Fentanyl and intubated. Tmax 100.1. Patient required increase O2 overnight now on ACV with PEEP: 12 and FIO2 70%. 04/01: Tmax 99.7. No bowel movement since admission. Patient has bowel sounds. Arousable on the ventilator. We'll attempt prone the patient paralyzed to increase oxygenation status. 04/02: MAXIMUM TEMPERATURE 100.9. Currently 97.7. 5 10 cc stools overnight. Placed on Roto prone yesterday. Saturations currently 94% on Flolan. Diuresed overnight. Creatinine still within normal limits. 04/03: Tmax 101. Currently 99.1. Positive BM. Did not tolerate not being unprone this AM. Saturations much improved prone. Tolerating tube feeding. 04/04: Tmax 100.8. Currently 98.8. +2 L past 24 hours. Attempt to on prone today. Positive BM. C. difficile negative. Remains paralyzed. 04/05: Remains sedated, orally intubated on neuromuscular blockade on mechanical ventilation. Remains on Rota prone bed. On insulin drip. 04/06: Remains sedated, orally intubated on neuromuscular blockade, on mechanical ventilation. Remains on Rota prone bed. Insulin drip continues. 04/07 Patient remains on Rotoprone bed sedated with Diprivan, Versed, Fentanyl in addition patient is on Nimbex. Afebrile. On Insulin drip 5u/hr. 04/08 Patient remains sedated and intubated and on Nimbex. Off insulin drip. On PRVC/AC with RR 15, TV 550, IT: 1.65, PEEP: 15 and FIO2 100%. T: 100.2 at 4 am. 04/09 Patient is sedated, intubated and remains on neuromuscular blockade. Vent setting unchanged. afebrile. 04/10 Patient remains sedated and intubated and on Nimbex. On PRVC/AC, RR 15, TV 500, PEEP: 15, FIO2 90%, IT:1.65, on Flolan drip. Remains on Rotoprone bed. 04/11 minimal improvement in oxygenation, FiO2 now at 75 - continue to improve oxygenation, worsening CXR 04/13/10 continue to improve oxygenation DC'd prone position last night 04/14- improving oxygenation, Nimbex discontinued as well as prone position 04/16 Patient is sedated with Versed and Fentanyl and intubated. Off rotoprone bed. On PRVC/AC RR 15, TV 550, IT 1.65, PEEP:15, FIO2 50%. 04/17 Patient remains sedated with Versed and Fentanyl. Afebrile, tolerating tube feeds 04/18 No acute events overnight Sedated and intubated. Afebrile. On PRVC/AC RR 15 , TV 550, IT 1.65, PEEP:15, FIO2 60% 04/19: Spiking fever up to 101, pancultured and 1 dose of vancomycin given by ID. On weaning doses of Flolan. FiO2 down to 50% I have reduced PEEP to 14. Remains critically ill 04/20: No fever. Sputum cx with Staph -S pending. Fio2 50% PEEP remains at 14. TV increased to 650 to improve lung recruitment. On weaning dose of Flolan-DC after current bag 04/21:Afebrile. Hyponatremia resolving, the patient will be placed on free water flushes. 04/22:The patient had an episode of acute desaturation requiring FiO2 increased to 90%. Stat chest x-ray stat ABG aggressive pulmonary toileting and suctioning , resolution of symptoms FiO2 now 55%. ABGs within normal limits. 04/23: Tmax 99.5. Currently afebrile. O2 sat 50%. PEEP down to 13. One small bowel movement overnight. 04/24: Currently afebrile. O2 sat 45%. PEEP to 12. One BM. Tolerating tube feeds. Subjective 04/25: Afebrile. Patient down to 11. Positive BM. Tolerating tube feeds. Awake on the ventilator with eyes open. Objective Vital Signs Date Time Temp Pulse Resp B/P Pulse Ox O2 Delivery O2 Flow Rate FiO2 04/25/16 12:58 96 50 04/25/16 08:00 100.1 91 15 104/49 Intake and Output 04/24/16 04/24/16 04/25/16 08:00 16:00 00:00 Intake Total 961 ml 1823 ml 693 ml Output Total 450 ml 400 ml 500 ml Balance 511 ml 1423 ml 193 ml Result Diagram: 04/25/16 0330 04/25/16 0330 Other Results Microbiology Date/Time Procedure Status Source Growth 04/25/16 10:00 Urine Culture Received Urine Catheterized Urine Pending Imaging Last Impressions Chest X-Ray 04/25/16 0000 Signed Impressions: Service Date/Time: Monday, April 25, 2016 13:33 - CONCLUSION: Stable chest Bernard Hartman MD Abdomen X-Ray 03/31/16 0000 Signed Impressions: Service Date/Time: Thursday, March 31, 2016 09:58 - CONCLUSION: Benign abdomen. Rodrigo Martinez MD Chest CT 03/28/16 0836 Signed Impressions: Service Date/Time: Monday, March 28, 2016 09:57 - CONCLUSION: Development areas of air bronchograms and consolidation more prominent in the right and left posterior basilar segments of the lower lobes. ET tube above the chanelle. Bernard Hartman MD CT Angiography 03/24/16 1121 Signed Impressions: Service Date/Time: Thursday, March 24, 2016 12:47 - CONCLUSION: 1. There is respiratory motion artifact but no PE is identified through most of the segmental level pulmonary arteries. 2. Mildly enlarged main pulmonary artery may indicate pulmonary arterial hypertension. 3. 11 mm left lower lobe noncalcified pulmonary nodule. Suggest correlation with any prior imaging studies that could confirm longer-term stability. If none are available consider short-term followup noncontrast chest CT in approximately 3 months. Ubaldo Rodas MD Objective Remarks GENERAL: 50-year-old male, critically ill. Orally intubated on mechanical ventilation, on sedation SKIN: Seborrheic dermatitis of the face HEAD: Atraumatic. Normocephalic. EYES: Pupils equal round and slightly reactive about 3 millimeters bilaterally. ENT: NG tube in place. Orotracheally intubated NECK: Very large neck. Trachea midline. CARDIOVASCULAR: Distant heart sounds. RRR. S1, S2. No S4. Without murmur RESPIRATORY: Orally intubated on mechanical ventilation, Breath sounds equal bilaterally. Diminished breath sounds due to body habitus. GASTROINTESTINAL: Abdomen soft, obese, nontender. Severe central obesity MUSCULOSKELETAL: Extremities with trace to 1+ nonpitting bilateral lower extremity edema. Left antecubital PICC line is clean dry and intact NEUROLOGICAL: Intubated and sedated on the ventilator. Opens eyes appears to track minimally. +ve cough and gag. No withdrawal of extremities Date of Insertion: Apr 02, 2016 Line: PICC Side: Left Location: Antecubital A/P Assessment and Plan Neuro/Psych: Likely SERENITY Toxic metabolic encephalopathy Currently On Fentanyl drip at 150 mcg an hour and Versed infusion 5 mg an hour for sedation and analgesia while intubated Goal of RASS a -2 Daily sedation vacation when appropriate PEEP< 8, FIO2.50 Acetaminophen for fever Pulm: Acute hypoxemic respiratory failure JACOB [facility] History of staph aureus pneumonia/HCAP ARDS On PRVC/AC RR 15, TV 650, IT:1.65, PEEP:11, FIO2 50% Continue with vent support keep sat >90%. Bronchodilators every 6 hours and every 2 hours as needed ICU vent bundle. Will need trach once oxygen requirements, PEEP improved. Flolan off since 04/21 on Solumedrol 40mg daily Advanced ET tube today from 19-22 cm CV: Monitor HR and BP keep MAP>65mmHg 2-D echo 03/26 EF 60%. No regional wall motion abnormality. Mild MR/TR. /FEN: Hypokalemia Monitor renal function, I/O's, electrolytes replacement per protocol. On Lasix 20mg Q12. K replacement . Scheduled K daily. Given additional 20 61 GI: Constipation Moderate protein calorie malnutrition On Glucerna 1.5@45ml/hr with 1 scoop whey protein 3 times a day, Protonix 40mg daily On Reglan 10mg Q8, Senna and Colace twice a day. ID: Staph aureus pneumonia Possible staph bacteremia Pertinent culture 04/25 - urine - pending 04/19 - blood cultures 2 out of 4 - staph aureus 04/19 - sputum - staph aureus 04/08 - sputum - staph aureus 04/03 - sputum - staph aureus 03/30 - sputum- -staph aureus 03/27 - sputum - staph aureus 03/26 - blood - staph hominis On vancomycin 2 g IV every 12 are since 04/19. Heme: Leukocytosis Monitor CBC/coags Endo: Diabetes mellitus SSI for glycemic control ( high scale) 50 units sliding scale insulin scale insulin in the past 24 hours, Levemir insulin 75 U Q12 MSK Morbid obesity Weight loss encouraged DVT, GI prophylaxis -Bilateral lower extremity SCDs. IV Protonix 40 mg daily. Lovenox 40 mg sq BID LINES: -Left upper extremity PICC line placed 04/15 Critical Care: The total care time was 35 minutes. Time to perform other separately billable procedures was not included in the critical care time. Codey Florentino MD Apr 25, 2016 15:13
[2016-04-25] MEDS ORDERED: POTASSIUM CL 40 MEQ/30 ML LIQ UDC PO ONE (15:15)
[2016-04-25] MEDS ORDERED: POLYETHYLENE GLYCOL 17 GM PKG PO ONE (15:15)
[2016-04-25] MEDS ORDERED: MINERAL OIL LIQUID 30 ML CUP PO ONE (16:00)
[2016-04-25] MEDS ORDERED: METHYLNALTREXONE BROMIDE 12 MG/0.6 ML VIAL SQ ONE (16:00)
--- NOTE | 2016-04-25 16:44 | HHI.PR ---
Subjective Remarks ON THE VENT SEDATED FIO2 AT 80% Objective Vital Signs Date Time Temp Pulse Resp B/P Pulse Ox O2 Delivery O2 Flow Rate FiO2 04/25/16 12:58 96 50 04/25/16 10:00 105 04/25/16 09:10 95 50 04/25/16 08:00 100.1 91 15 104/49 95 04/25/16 08:00 106 04/25/16 08:00 50 04/25/16 06:00 101 04/25/16 04:06 94 50 04/25/16 04:00 99.2 97 15 105/79 95 04/25/16 04:00 45 04/25/16 04:00 97 04/25/16 02:00 83 04/25/16 01:15 95 50 04/25/16 00:00 45 04/25/16 00:00 99.0 85 15 107/73 95 04/25/16 00:00 86 04/24/16 22:00 86 04/24/16 20:00 99.0 91 15 129/84 96 04/24/16 20:00 91 04/24/16 20:00 45 04/24/16 19:55 94 50 04/24/16 18:00 88 I/O 04/24/16 04/24/16 04/24/16 04/25/16 04/25/16 04/25/16 07:00 15:00 23:00 07:00 15:00 23:00 Intake Total 961 ml 1823 ml 693 ml 1407 ml Output Total 450 ml 400 ml 500 ml 1050 ml Balance 511 ml 1423 ml 193 ml 357 ml IV Total 224 ml 1015 ml 245 ml 672 ml Tube Feeding 337 ml 308 ml 388 ml 335 ml Other 400 ml 500 ml 60 ml 400 ml Output Urine Total 400 ml 400 ml 500 ml 1000 ml Stool Total 50 ml 0 ml 50 ml Result Diagram: 04/25/1632904/25/16329 Objective Remarks GENERAL: SKIN: Warm and dry. HEAD: Atraumatic. Normocephalic. EYES: Pupils equal and round. No scleral icterus. No injection or drainage. ENT: No nasal bleeding or discharge. Mucous membranes pink and moist. NECK: Trachea midline. No JVD. CARDIOVASCULAR: Regular rate and rhythm. RESPIRATORY: No accessory muscle use. Clear to auscultation. Breath sounds equal bilaterally. GASTROINTESTINAL: Abdomen soft, non-tender, nondistended. Hepatic and splenic margins not palpable. MUSCULOSKELETAL: Extremities without clubbing, cyanosis, or edema. No obvious deformities. NEUROLOGICAL: Awake and alert. No obvious cranial nerve deficits. Motor grossly within normal limits. Five out of 5 muscle strength in the arms and legs. Normal speech. PSYCHIATRIC: Appropriate mood and affect; insight and judgment normal. Assessment and Plan Assessment and Plan RESPIRATORY FAILURE SEPSIS ARDS JACOB/CSA PLAN VENT SUPPORT FIO2 INCREASED TO 0.8 PULM TOILET WEAN TOLERATED. CHECK ABG , CXRAY FOR TRACHEOSTOMY Orlando Perry MD Apr 25, 2016 16:44
[2016-04-25] MEDS: fentaNYL 2,500 MCG/NS 250 ML IV SCH (17:14)
[2016-04-25] MEDS: PANTOPRAZOLE SODIUM 40 MG VIAL IV PUSH SCH (17:14)
[2016-04-25] MEDS ORDERED: PHARMACY ORDERED LAB XX ONE (22:45)
[2016-04-26] VITALS (17 sets, daily range): BP systolic 97–145; BP diastolic 63–85; PULSE 77–115; RESP 15; TEMP 98.7–99.6; O2SAT 90–95
[2016-04-26] MEDS: VANCOMYCIN INJ 1,500 MG in SODIUM CHLORID 0.9% 500 ML INJ 500 ML IV SCH ×3 (00:10→22:11)
[2016-04-26] MEDS: ARTIFICIAL TEARS OPTH SOLN 15 ML BTL EACH EYE SCH ×6 (00:11→19:30)
[2016-04-26] MEDS: RESP: ALBUTEROL 2.5 MG/IPRATROPIUM 0.5 MG NEB (SCH) NEB ×4 (03:57→20:51)
[2016-04-26] MEDS: METOCLOPRAMIDE HCL 10 MG/2 ML VIAL IV PUSH SCH ×3 (05:21→19:35)
[2016-04-26] MEDS: FREE WATER G-TUBE SCH ×4 (05:21→18:00)
[2016-04-26] MEDS: INSULIN NovoLIN REGULAR SUPPLEMENTAL SCALE SQ SCH ×4 (05:21→18:00)
[2016-04-26] MEDS: ENOXAPARIN SODIUM 40 MG/0.4 ML SYRINGE SQ SCH ×2 (05:21→18:06)
[2016-04-26] MEDS: fentaNYL 2,500 MCG/NS 250 ML IV SCH ×2 (06:10→22:10)
--- NOTE | 2016-04-26 07:43 | HHI.PR ---
Subjective Remarks ON THE VENT SEDATED FIO2 AT 80% Objective Vital Signs Date Time Temp Pulse Resp B/P Pulse Ox O2 Delivery O2 Flow Rate FiO2 04/26/16 06:00 96 04/26/16 04:00 98.9 79 15 125/72 95 04/26/16 04:00 77 04/26/16 04:00 94 50 04/26/16 04:00 50 04/26/16 02:00 81 04/26/16 01:12 92 50 04/26/16 00:00 80 04/26/16 00:00 50 04/26/16 00:00 98.8 79 15 114/70 92 04/25/16 22:00 81 04/25/16 20:00 50 04/25/16 20:00 99.1 112 15 124/77 91 04/25/16 20:00 112 04/25/16 19:50 92 50 04/25/16 18:00 122 04/25/16 16:00 50 04/25/16 16:00 123 04/25/16 16:00 102.3 123 23 159/89 98 04/25/16 14:00 130 04/25/16 12:58 96 50 04/25/16 12:00 99.3 122 22 136/82 94 04/25/16 12:00 122 04/25/16 12:00 50 04/25/16 10:00 105 04/25/16 09:10 95 50 04/25/16 08:00 100.1 91 15 104/49 95 04/25/16 08:00 106 04/25/16 08:00 50 I/O 04/25/16 04/25/16 04/25/16 04/26/16 04/26/16 04/26/16 07:00 15:00 23:00 07:00 15:00 23:00 Intake Total 1407 ml 1295 ml 561 ml 1307 ml Output Total 1050 ml 1350 ml 1350 ml 300 ml Balance 357 ml -55 ml -789 ml 1007 ml IV Total 672 ml 695 ml 297 ml 747 ml Tube Feeding 335 ml 360 ml 64 ml 310 ml Other 400 ml 240 ml 200 ml 250 ml Output Urine Total 1000 ml 1350 ml 1350 ml 300 ml Stool Total 50 ml # Bowel Movements 0 0 Result Diagram: 04/25/16 0330 04/25/16 0330 Objective Remarks GENERAL: SKIN: Warm and dry. HEAD: Atraumatic. Normocephalic. EYES: Pupils equal and round. No scleral icterus. No injection or drainage. ENT: No nasal bleeding or discharge. Mucous membranes pink and moist. NECK: Trachea midline. No JVD. CARDIOVASCULAR: Regular rate and rhythm. RESPIRATORY: No accessory muscle use. Clear to auscultation. Breath sounds equal bilaterally. GASTROINTESTINAL: Abdomen soft, non-tender, nondistended. Hepatic and splenic margins not palpable. MUSCULOSKELETAL: Extremities without clubbing, cyanosis, or edema. No obvious deformities. NEUROLOGICAL: Awake and alert. No obvious cranial nerve deficits. Motor grossly within normal limits. Five out of 5 muscle strength in the arms and legs. Normal speech. PSYCHIATRIC: Appropriate mood and affect; insight and judgment normal. Assessment and Plan Assessment and Plan RESPIRATORY FAILURE SEPSIS ARDS JACOB/CSA PLAN VENT SUPPORT FIO2 0.5 PULM TOILET WEAN TOLERATED. CHECK ABG , CXRAY FOR TRACHEOSTOMY Orlando Perry MD Apr 26, 2016 07:43
[2016-04-26 08:30] LABS: AUTOMATED NEUTROPHIL # 9.4 TH/MM3 (1.8-7.7); BASOPHIL # 0.1 TH/MM3 (0-0.2); BASOPHIL % 0.4 % (0.0-2.0); EOSINOPHIL # 0.3 TH/MM3 (0-0.4); EOSINOPHIL % 2.8 % (0.0-4.0); HEMATOCRIT 37.7 % (39.0-51.0); LYMPH % 15.1 % (9.0-44.0); LYMPHOCYTE # 1.9 TH/MM3 (1.0-4.8); MEAN CELL VOLUME 83.1 FL (80.0-100.0); MEAN CORPUSCULAR HEMOGLOBIN 27.3 PG (27.0-34.0); MEAN CORPUSCULAR HGB CONC 32.9 % (32.0-36.0); NEUT % 76.7 % (16.0-70.0); PLATELET COUNT 187 TH/MM3 (150-450); RED BLOOD COUNT 4.54 MIL/MM3 (4.50-5.90); RED CELL DISTRIBUTION WIDTH 15.6 % (11.6-17.2); WHITE BLOOD COUNT 12.3 TH/MM3 (4.0-11.0)
[2016-04-26 08:32] LABS: HEMO FLAGS AUTO DIFF
[2016-04-26 08:44] LABS: ALKALINE PHOSPHATASE 76 U/L (45-117); ALT (GPT) 161 U/L (12-78); ANION GAP 10 MEQ/L (5-15); AST (GOT) 41 U/L (15-37); BICARBONATE 30.1 MEQ/L (21.0-32.0); BLOOD UREA NITROGEN 33 MG/DL (7-18); CHLORIDE 106 MEQ/L (98-107); GLOMERULAR FILTRATION RATE 180 ML/MIN (>89); MAGNESIUM 2.6 MG/DL (1.5-2.5); POTASSIUM 3.4 MEQ/L (3.5-5.1); SODIUM (NA) 146 MEQ/L (136-145); TOTAL BILIRUBIN ADULT 0.8 MG/DL (0.2-1.0)
[2016-04-26] MEDS ORDERED: POLYETHYLENE GLYCOL 17 GM PKG PO SCH (09:00)
[2016-04-26] MEDS: BENEPROTEIN POWDER 1 PACK G-TUBE SCH ×3 (09:00→18:00)
[2016-04-26] MEDS: BETAMETHASONE/CLOTRIMAZOLE CREAM 15 GM TOPICAL SCH ×2 (09:00→19:35)
[2016-04-26] MEDS: LACTOBACILLUS ACIDOPHILUS TAB PO SCH ×3 (09:13→18:05)
[2016-04-26] MEDS: SENNOSIDES SYRUP 8.8 MG/5 ML CUP PO/TUBE SCH ×2 (09:13→19:36)
[2016-04-26] MEDS: POTASSIUM CHLORIDE 25 MEQ EFFERVESCENT TAB PO SCH ×2 (09:13→19:29)
[2016-04-26] MEDS: INSULIN DETEMIR 100 UNITS/ML VIAL SQ SCH ×2 (09:13→19:31)
[2016-04-26] MEDS: FUROSEMIDE 20 MG/2 ML VIAL IV PUSH SCH ×2 (09:13→19:30)
[2016-04-26] MEDS: methylPREDNISolone SOD SUCC 40 MG/1 ML VIAL IV PUSH SCH (09:13)
[2016-04-26] MEDS: POLYETHYLENE GLYCOL 17 GM PKG PO SCH ×2 (09:13→19:29)
[2016-04-26] MEDS: DOCUSATE SODIUM 100 MG/10 ML UDC PO SCH ×2 (09:13→19:29)
[2016-04-26] MEDS: ARTIFICIAL TEARS OPTH OINT 3.5 APPLIC/3.5 GM TUBO EACH EYE SCH ×2 (09:14→19:32)
[2016-04-26] MEDS: CHLORHEXIDINE 0.12% (ORAL KIT) 15 ML CUP MT SCH ×2 (09:15→19:31)
[2016-04-26 09:17] LABS: BANDS 1 % (0-6); BASOPHILS 1 % (0-2); EOSINOPHILS 3 % (0-4); METAMYELOCYTES 1 % (0-1); MYELOCYTES 2 % (0-0); NEUTROPHIL # MANUAL DIFF 10.3 TH/MM3 (1.8-7.7); POLYS (SEG NEUTROPHILS) 79 % (16-70); PROMYELOCYTES 1 % (0-0); WBC DIFF SAMPLE 100
[2016-04-26 09:18] LABS: PLATELET ESTIMATE SMEAR NORMAL (NORMAL); PLATELET MORPHOLOGY NORMAL (NORMAL); SCAN/DIFF FINAL DIFF MANUAL
[2016-04-26] MEDS: SODIUM CHLORIDE 0.9% FLUSH 5 ML FLUSH IVF SCH (09:18)
[2016-04-26] MEDS ORDERED: METHYLNALTREXONE BROMIDE 12 MG/0.6 ML VIAL SQ ONE (14:30)
[2016-04-26] MEDS ORDERED: SENNOSIDES SYRUP 8.8 MG/5 ML CUP PO ONE (14:30)
[2016-04-26] MEDS ORDERED: MINERAL OIL LIQUID 30 ML CUP PO ONE (14:30)
--- NOTE | 2016-04-26 14:39 | HHI.CCPN ---
Subjective Remarks/Hospital Course Patient is a 50 years old obese male with past medical history significant for undiagnosed sleep apnea, super morbid obesity, type 2 diabetes was brought to the emergency department on 03/24/16 after feeling light headed and dizzy. On presentation here was found to be hypoxemic and ABG showed severe hypoxemia and hypercarbia. For a recent driving physical he was diagnosed with low oxygen saturations. Patient's oxygen saturation the ED was in the low 80s, which was confirmed on ABG with a oxygen saturation of 78% and PO2 of 46. CTA negative for PE. Patient was initiated on BiPAP therapy with consult to pulmonary Dr. Crane. His oxygenation improved but he continued to be hypercapnic. Today a.m. on nasal cannula his pH was 7.26 and PCO2 was increased at 99, patient was somnolent was placed back on BiPAP and repeat ABG at noon showed pH 7.26 PCO2 98 and pO2 70. This was on 16 BiPAP with FiO2 50%. Critical care was consulted. On my evaluation patient is somnolent but wakes up easily. I reduced the PEEP on BiPAP from 12-7 to facilitate better ventilation. A repeat ANG showed only minimal improvement, so decision made to intubate patient. Glidescope with #4 blade was used. Only propofol was used for induction. Initially I had a Grade 1-2 view, but I was unable to pass tube through the vocal cord to trachea in two attempts. Tube slipped out of Laryngeal opening both times. Dr Garrett intubated patient after NM paralysis with succinylcholine. Post intubation ABG showed improvement in hypercapnia and oxygenation. 03/27/16: Patient remains intubated heavily sedated with propofol and fentanyl. Remained severely hypoxemic on 100% FiO2, PEEP12, chest x-ray shows bibasilar infiltrates. Flagyl added. We'll give 1 dose of vancomycin-Adjust antibiotics according to cultures. Patient super morbid obesity may prevent Prone therapy 03/28: Remains hypoxic but ABG shows marginal improvement in oxygenation. WBC increasing 20.1 today. Start vancomycin scheduled. 03/29: Oxygenation is slightly improved. FiO2 reduced to 50% today. Chest x- ray remains unchanged. On sedation hold patient does wake up and follow commands. WBC count remains at 20 03/30 No acute events overnight. Sedated with Diprivan and Fentanyl. Had T: 100.1 at 4 am. WBC trending down 15.9 today from 20. 03/31 Patient remains sedated with Diprivan, Fentanyl and intubated. Tmax 100.1. Patient required increase O2 overnight now on ACV with PEEP: 12 and FIO2 70%. 04/01: Tmax 99.7. No bowel movement since admission. Patient has bowel sounds. Arousable on the ventilator. We'll attempt prone the patient paralyzed to increase oxygenation status. 04/02: MAXIMUM TEMPERATURE 100.9. Currently 97.7. 5 10 cc stools overnight. Placed on Roto prone yesterday. Saturations currently 94% on Flolan. Diuresed overnight. Creatinine still within normal limits. 04/03: Tmax 101. Currently 99.1. Positive BM. Did not tolerate not being unprone this AM. Saturations much improved prone. Tolerating tube feeding. 04/04: Tmax 100.8. Currently 98.8. +2 L past 24 hours. Attempt to on prone today. Positive BM. C. difficile negative. Remains paralyzed. 04/05: Remains sedated, orally intubated on neuromuscular blockade on mechanical ventilation. Remains on Rota prone bed. On insulin drip. 04/06: Remains sedated, orally intubated on neuromuscular blockade, on mechanical ventilation. Remains on Rota prone bed. Insulin drip continues. 04/07 Patient remains on Rotoprone bed sedated with Diprivan, Versed, Fentanyl in addition patient is on Nimbex. Afebrile. On Insulin drip 5u/hr. 04/08 Patient remains sedated and intubated and on Nimbex. Off insulin drip. On PRVC/AC with RR 15, TV 550, IT: 1.65, PEEP: 15 and FIO2 100%. T: 100.2 at 4 am. 04/09 Patient is sedated, intubated and remains on neuromuscular blockade. Vent setting unchanged. afebrile. 04/10 Patient remains sedated and intubated and on Nimbex. On PRVC/AC, RR 15, TV 500, PEEP: 15, FIO2 90%, IT:1.65, on Flolan drip. Remains on Rotoprone bed. 04/11 minimal improvement in oxygenation, FiO2 now at 75 - continue to improve oxygenation, worsening CXR 04/13/10 continue to improve oxygenation DC'd prone position last night 04/14- improving oxygenation, Nimbex discontinued as well as prone position 04/16 Patient is sedated with Versed and Fentanyl and intubated. Off rotoprone bed. On PRVC/AC RR 15, TV 550, IT 1.65, PEEP:15, FIO2 50%. 04/17 Patient remains sedated with Versed and Fentanyl. Afebrile, tolerating tube feeds 04/18 No acute events overnight Sedated and intubated. Afebrile. On PRVC/AC RR 15 , TV 550, IT 1.65, PEEP:15, FIO2 60% 04/19: Spiking fever up to 101, pancultured and 1 dose of vancomycin given by ID. On weaning doses of Flolan. FiO2 down to 50% I have reduced PEEP to 14. Remains critically ill 04/20: No fever. Sputum cx with Staph -S pending. Fio2 50% PEEP remains at 14. TV increased to 650 to improve lung recruitment. On weaning dose of Flolan-DC after current bag 04/21:Afebrile. Hyponatremia resolving, the patient will be placed on free water flushes. 04/22:The patient had an episode of acute desaturation requiring FiO2 increased to 90%. Stat chest x-ray stat ABG aggressive pulmonary toileting and suctioning , resolution of symptoms FiO2 now 55%. ABGs within normal limits. 04/23: Tmax 99.5. Currently afebrile. O2 sat 50%. PEEP down to 13. One small bowel movement overnight. 04/24: Currently afebrile. O2 sat 45%. PEEP to 12. One BM. Tolerating tube feeds. 04/25: Afebrile. PEEP down to 11. Positive BM. Tolerating tube feeds. Awake on the ventilator with eyes open. Subjective 04/26: Afebrile. PEEP down to 10. Time to feeding. Awake and alert eyes open. Objective Vital Signs Date Time Temp Pulse Resp B/P Pulse Ox O2 Delivery O2 Flow Rate FiO2 04/26/16 12:00 99.1 85 15 97/63 93 04/26/16 12:00 50 Intake and Output 04/25/16 04/25/16 04/26/16 08:00 16:00 00:00 Intake Total 1407 ml 1295 ml 561 ml Output Total 1050 ml 1350 ml 1350 ml Balance 357 ml -55 ml -789 ml Result Diagram: 04/26/16 0530 04/26/16 0530 Other Results Microbiology Date/Time Procedure Status Source Growth 04/25/16 10:00 Urine Culture - Preliminary Resulted Urine Catheterized Urine NO GROWTH IN 24 HOURS. Imaging Last 72 hours Impressions Chest X-Ray 04/25/16 0000 Signed Impressions: Service Date/Time: Monday, April 25, 2016 13:33 - CONCLUSION: Stable chest Bernard Hartman MD Objective Remarks GENERAL: 50-year-old male, critically ill. Orally intubated on mechanical ventilation, on sedation SKIN: Seborrheic dermatitis of the face HEAD: Atraumatic. Normocephalic. EYES: Pupils equal round and slightly reactive about 3 millimeters bilaterally. ENT: NG tube in place. Orotracheally intubated NECK: Very large neck. Trachea midline. CARDIOVASCULAR: Distant heart sounds. RRR. S1, S2. No S4. Without murmur RESPIRATORY: Orally intubated on mechanical ventilation, Breath sounds equal bilaterally. Diminished breath sounds due to body habitus. GASTROINTESTINAL: Abdomen soft, obese, nontender. Severe central obesity MUSCULOSKELETAL: Extremities with trace to 1+ nonpitting bilateral lower extremity edema. Left antecubital PICC line is clean dry and intact NEUROLOGICAL: Arousable on the ventilator. Follows commands. Wiggles toes. Squeezes hands Urinary Catheter: Yes Assessment to: Continue Becker insert reason: ICU Pt Getting Diuretics Vascular Central Line Catheter: Yes Assessment to: Continue Date of Insertion: Apr 02, 2016 Line: PICC Side: Left Location: Antecubital A/P Assessment and Plan Neuro/Psych: Likely SERENITY Toxic metabolic encephalopathy Currently On Fentanyl drip at 150 mcg an hour and Versed infusion 5 mg an hour for sedation and analgesia while intubated Goal of RASS a -2 Daily sedation vacation when appropriate PEEP< 8, FIO2.50 Acetaminophen for fever Pulm: Acute hypoxemic respiratory failure JACOB [facility] History of staph aureus pneumonia/HCAP ARDS On PRVC/AC RR 15, TV 650, IT:1.65, PEEP:10, FIO2 50% Continue with vent support keep sat >90%. Bronchodilators every 6 hours and every 2 hours as needed ICU vent bundle. Will need trach once oxygen requirements, PEEP improved. Flolan off since 04/21 on Solumedrol 40mg daily Advanced ET tube 04/24 from 19-22 cm CV: Monitor HR and BP keep MAP>65mmHg 2-D echo 03/26 EF 60%. No regional wall motion abnormality. Mild MR/TR. /FEN: Hypokalemia Hypernatremia Monitor renal function, I/O's, electrolytes replacement per protocol. On Lasix 20mg Q12. K replacement . Scheduled K daily. Given additional 40 mEq 1 now GI: Constipation Moderate protein calorie malnutrition On Glucerna 1.5@45ml/hr with 1 scoop whey protein 3 times a day, Protonix 40mg daily On Reglan 10mg Q8, Senna and Colace twice a day.. Added MiraLAX twice a day and lactulose 4 times a day. 1 dose Relistor and mineral oil today. ID: Staph aureus pneumonia Possible staph bacteremia Pertinent culture 04/25 - urine - pending 04/19 - blood cultures 2 out of 4 - staph aureus 04/19 - sputum - staph aureus 04/08 - sputum - staph aureus 04/03 - sputum - staph aureus 03/30 - sputum- -staph aureus 03/27 - sputum - staph aureus 03/26 - blood - staph hominis On vancomycin 2 g IV every 12 are since 04/19. Heme: Leukocytosis Monitor CBC/coags Endo: Diabetes mellitus SSI for glycemic control ( high scale) 22 units sliding scale insulin scale insulin in the past 24 hours, Levemir insulin 80 U Q12 MSK Morbid obesity Weight loss encouraged DVT, GI prophylaxis -Bilateral lower extremity SCDs. IV Protonix 40 mg daily. Lovenox 40 mg sq BID LINES: -Left upper extremity PICC line placed 04/15 Critical Care: The total care time was 35 minutes. Time to perform other separately billable procedures was not included in the critical care time. Codey Florentino MD Apr 26, 2016 14:39
--- NOTE | 2016-04-26 14:43 | HHI.IDPN ---
Subjective Subjective Remarks Notes reviewed. Temps occ 99+ On the vent, FiO2 50%, PEEP at 10 WBC better Line - PICC Good UO Off flolan is a 50 years old obese male with past medical history significant for undiagnosed sleep apnea, super morbid obesity, type 2 diabetes was brought to the emergency department on 03/24/16. ID following for MSSA pneumonia. Antibiotics Vancomycin IV Lines PICC 04/15 Past Medical History Reviewed Allergies: Coded Allergies: Penicillin (Verified Allergy, Severe, Swelling, 03/24/16) Tetanus Toxoid (Verified Allergy, Unknown, Swelling, 03/24/16) Objective . Vital Signs Date Time Temp Pulse Resp B/P Pulse Ox O2 Delivery O2 Flow Rate FiO2 04/26/16 12:00 99.1 85 15 97/63 93 04/26/16 12:00 50 04/26/16 12:00 85 04/26/16 11:45 90 50 04/26/16 10:00 98 04/26/16 08:06 92 50 04/26/16 08:00 50 04/26/16 08:00 100 04/26/16 08:00 98.7 100 15 145/85 92 04/26/16 06:00 96 04/26/16 04:00 98.9 79 15 125/72 95 04/26/16 04:00 77 04/26/16 04:00 94 50 04/26/16 04:00 50 04/26/16 02:00 81 04/26/16 01:12 92 50 04/26/16 00:00 80 04/26/16 00:00 50 04/26/16 00:00 98.8 79 15 114/70 92 04/25/16 22:00 81 04/25/16 20:00 50 04/25/16 20:00 99.1 112 15 124/77 91 04/25/16 20:00 112 04/25/16 19:50 92 50 04/25/16 18:00 122 04/25/16 16:00 50 04/25/16 16:00 123 04/25/16 16:00 102.3 123 23 159/89 98 04/25/16 04/25/16 04/26/16 15:00 23:00 07:00 Intake Total 1295 ml 561 ml 1307 ml Output Total 1350 ml 1350 ml 300 ml Balance -55 ml -789 ml 1007 ml IV Total 695 ml 297 ml 747 ml Tube Feeding 360 ml 64 ml 310 ml Other 240 ml 200 ml 250 ml Output Urine Total 1350 ml 1350 ml 300 ml # Bowel Movements 0 0 . Laboratory Tests Test 04/25/16 04/26/16 03:30 05:30 White Blood Count 16.0 TH/MM3 12.3 TH/MM3 Red Blood Count 4.63 MIL/MM3 4.54 MIL/MM3 Hemoglobin 12.7 GM/DL 12.4 GM/DL Hematocrit 38.4 % 37.7 % Mean Corpuscular Volume 83.0 FL 83.1 FL Mean Corpuscular Hemoglobin 27.4 PG 27.3 PG Mean Corpuscular Hemoglobin 33.0 % 32.9 % Concent Red Cell Distribution Width 15.2 % 15.6 % Platelet Count 171 TH/MM3 187 TH/MM3 Mean Platelet Volume 10.0 FL 10.1 FL Neutrophils (%) (Auto) 83.5 % 76.7 % Lymphocytes (%) (Auto) 9.8 % 15.1 % Monocytes (%) (Auto) 4.9 % 5.0 % Eosinophils (%) (Auto) 1.4 % 2.8 % Basophils (%) (Auto) 0.4 % 0.4 % Neutrophils # (Auto) 13.4 TH/MM3 9.4 TH/MM3 Lymphocytes # (Auto) 1.6 TH/MM3 1.9 TH/MM3 Monocytes # (Auto) 0.8 TH/MM3 0.6 TH/MM3 Eosinophils # (Auto) 0.2 TH/MM3 0.3 TH/MM3 Basophils # (Auto) 0.1 TH/MM3 0.1 TH/MM3 CBC Comment DIFF FINAL AUTO DIFF Differential Comment FINAL DIFF MANUAL Differential Total Cells 100 Counted Neutrophils % (Manual) 79 % Band Neutrophils % 1 % Lymphocytes % 9 % Monocytes % 3 % Eosinophils % 3 % Basophils % 1 % Neutrophils # (Manual) 10.3 TH/MM3 Metamyelocytes 1 % Myelocytes 2 % Promyelocytes 1 % Platelet Estimate NORMAL Platelet Morphology Comment NORMAL Red Cell Morphology Comment NORMAL Laboratory Tests Test 04/25/16 04/26/16 03:30 05:30 Sodium Level 145 MEQ/L 146 MEQ/L Potassium Level 3.5 MEQ/L 3.4 MEQ/L Chloride Level 107 MEQ/L 106 MEQ/L Carbon Dioxide Level 29.5 MEQ/L 30.1 MEQ/L Anion Gap 9 MEQ/L 10 MEQ/L Blood Urea Nitrogen 34 MG/DL 33 MG/DL Creatinine 0.63 MG/DL 0.49 MG/DL Estimat Glomerular Filtration 135 ML/MIN 180 ML/MIN Rate Random Glucose 170 MG/DL 126 MG/DL Calcium Level 9.0 MG/DL 8.9 MG/DL Phosphorus Level 3.9 MG/DL Magnesium Level 2.6 MG/DL Total Bilirubin 0.8 MG/DL Aspartate Amino Transf 41 U/L (AST/SGOT) Alanine Aminotransferase 161 U/L (ALT/SGPT) Alkaline Phosphatase 76 U/L Total Protein 6.6 GM/DL Albumin 2.8 GM/DL Microbiology Date/Time Procedure Status Source Growth 04/25/16 10:00 Urine Culture - Preliminary Resulted Urine Catheterized Urine NO GROWTH IN 24 HOURS. Imaging Chest X-Ray 04/25/16 0000 Signed Impressions: Service Date/Time: Monday, April 25, 2016 13:33 - CONCLUSION: Stable chest Bernard Hartman MD Chest X-Ray 04/23/16 0600 Signed Impressions: Service Date/Time: Saturday, April 23, 2016 03:46 - CONCLUSION: Bilateral areas of consolidation or atelectasis being worse on the left. Ubaldo Coombs MD Abdomen X-Ray 03/31/16 0000 Signed Impressions: Service Date/Time: Thursday, March 31, 2016 09:58 - CONCLUSION: Benign abdomen. Rodrigo Martinez MD Chest CT 03/28/16 0836 Signed Impressions: Service Date/Time: Monday, March 28, 2016 09:57 - CONCLUSION: Development areas of air bronchograms and consolidation more prominent in the right and left posterior basilar segments of the lower lobes. ET tube above the chanelle. Bernard Hartman MD CT Angiography 03/24/16 1121 Signed Impressions: Service Date/Time: Thursday, March 24, 2016 12:47 - CONCLUSION: 1. There is respiratory motion artifact but no PE is identified through most of the segmental level pulmonary arteries. 2. Mildly enlarged main pulmonary artery may indicate pulmonary arterial hypertension. 3. 11 mm left lower lobe noncalcified pulmonary nodule. Suggest correlation with any prior imaging studies that could confirm longer-term stability. If none are available consider short-term followup noncontrast chest CT in approximately 3 months. Ubaldo Rodas MD Chest X-Ray 04/19/16 0000 Signed Impressions: Service Date/Time: April 03:20 - CONCLUSION: 1. Cardiomegaly and findings of congestive heart failure. There has been no significant change when compared to the prior exam. Kyaw Rojo MD Chest X-Ray 04/18/16 0000 Signed Impressions: Service Date/Time: Monday, April 18, 2016 09:59 - CONCLUSION: 1. Support equipment in good position. 2. Small left basilar effusion and consolidative changes in the left lower lobe and perihilar region on the right. Dc Barton MD Chest X-Ray 04/16/16 0600 Signed Impressions: Service Date/Time: Saturday, April 16, 2016 03:58 - CONCLUSION: 1. Cardiomegaly. Bilateral lower lobe atelectasis versus pneumonia. There has been no significant change when compared to the prior exam. Kyaw Rojo MD Abdomen X-Ray 03/31/16 0000 Signed Impressions: Service Date/Time: Thursday, March 31, 2016 09:58 - CONCLUSION: Benign abdomen. Rodrigo Martinez MD Chest CT 03/28/16 0836 Signed Impressions: Service Date/Time: Monday, March 28, 2016 09:57 - CONCLUSION: Development areas of air bronchograms and consolidation more prominent in the right and left posterior basilar segments of the lower lobes. ET tube above the chanelle. Bernard Hartman MD CT Angiography 03/24/16 1121 Signed Impressions: Service Date/Time: Thursday, March 24, 2016 12:47 - CONCLUSION: 1. There is respiratory motion artifact but no PE is identified through most of the segmental level pulmonary arteries. 2. Mildly enlarged main pulmonary artery may indicate pulmonary arterial hypertension. 3. 11 mm left lower lobe noncalcified pulmonary nodule. Suggest correlation with any prior imaging studies that could confirm longer-term stability. If none are available consider short-term followup noncontrast chest CT in approximately 3 months. Ubaldo Rodas MD Chest X-Ray 04/12/16 0600 Signed Impressions: Service Date/Time: April 04:14 - CONCLUSION: Worsening appearance of the chest. Henrry Andrea MD Chest X-Ray 04/11/16 0000 Signed Impressions: Service Date/Time: Monday, April 11, 2016 04:09 - CONCLUSION: No significant change has occurred. Henrry Andrea MD Chest X-Ray 04/09/16 0900 Signed Impressions: Service Date/Time: Saturday, April 09, 2016 09:12 - CONCLUSION: 1. Diffuse alveolar consolidation of the left lung and right upper lung field consistent with pneumonia and/or asymmetric pulmonary edema. Clinical correlation is recommended. 2. Endotracheal tube has its tip 1 cm above the chanelle. This could be pulled back 2 cm for more optimal position. Farhat Montes MD Chest X-Ray 04/05/16 06 Signed Impressions: Service Date/Time: April 03:25 - CONCLUSION: 1. Improved basilar consolidation. Residual versus developing right midlung consolidation. 2. Small bilateral pleural effusions are suspected. 3. No change cardiomegaly or lines/tubes. Ubaldo Ortiz MD Chest X-Ray 04/04/16 06 Signed Impressions: Service Date/Time: Monday, April 04, 2016 04:44 - CONCLUSION: Worsening bilateral airspace opacities, especially left perihilar. Ubaldo Ortiz MD Chest X-Ray 04/04/16 06 Signed Impressions: Service Date/Time: Monday, April 04, 2016 04:44 - CONCLUSION: Worsening bilateral airspace opacities, especially left perihilar. Ubaldo Ortiz MD Chest X-Ray 04/03/16 06 Signed Impressions: Service Date/Time: Sunday, April 03, 2016 00:16 - CONCLUSION: Potential developing pneumonia in the right upper lobe. Bibasilar atelectasis modestly worse in the interim. Ubaldo Ortiz MD Chest X-Ray 04/03/16 06 Signed Impressions: Service Date/Time: Sunday, April 03, 2016 00:16 - CONCLUSION: Potential developing pneumonia in the right upper lobe. Bibasilar atelectasis modestly worse in the interim. Ubaldo Ortiz MD Chest X-Ray 04/02/16 0925 Signed Impressions: Service Date/Time: Saturday, April 02, 2016 09:22 - CONCLUSION: Place a right jugular catheter terminates superior vena cava with no pneumothorax. Bernard Stone, MD Physical Exam GENERAL: Morbidly obese, sedated responding, on the vent, NAD SKIN: Cool skin, no cyanosis. No generalized rash HEENT: No icterus, ET in place. Some conjunctival injection R eye, better CHEST: Coarse BS bilaterally, decreased at bases CARDIAC: regular, no murmur ABDOMEN: soft, obese, (+) BS : Becker in place, urine looks clear MUSCULOSKELETAL: Extremities without clubbing, cyanosis. Has improving pedal edema and edema hands NEUROLOGICAL: Awake, responding PSYCH: Unable to assess LINE: No evidence of infection Assessment & Plan Remarks IMPRESSION Leukocytosis, persistent, better today - has been on adequate Abx for pathogens isolated Pneumonia, C/S MSSA - Last CXR stable - S/P RX JACOB Respiratory failure, improving O2 requirement - has extensive infiltrates Morbid obesity Allergy to PCN, swelling Fevers, recurrent, temps better - has (+) BC, Staph epi one out 2 BC, has new line PICC - ?new VAP, has MSSA again RECOMMENDATION Monitor progress Follow new C/S Follow CBC Monitor temps Continue IV vancomycin. Elisha Painter MD Apr 26, 2016 14:43
[2016-04-26] MEDS ORDERED: MAGNESIUM CITRATE SOLN 300 ML BTL PO ONE (14:45)
[2016-04-26] MEDS ORDERED: POTASSIUM CL 40 MEQ/30 ML LIQ UDC PO ONE (14:45)
--- NOTE | 2016-04-26 16:05 | RADRPT ---
EXAM DATE/TIME: 04/26/2016 14:58 [facility] COMPARISON: No previous studies available for comparison. INDICATIONS : No bowel movement x 7 days. MEDICAL HISTORY : Diabetes mellitus type II. SURGICAL HISTORY : None. ENCOUNTER: Initial ACUITY: 1 month PAIN SCORE: Non-responsive. LOCATION: Bilateral abdomen FINDINGS: Nasogastric tube is present in the stomach. Gas present in scattered bowel loops which do not appear severely dilated. No suspicious calcifications are definitely seen. The pelvis in particular is under penetrated secondary to patient body habitus. There are degenerative bony changes. CONCLUSION: Bowel gas pattern appears nonspecific and benign Ubaldo Carter MD on April 26, 2016 at 16:02 Board Certified Radiologist. This report was verified electronically.
--- NOTE | 2016-04-26 17:37 | PD.CAR.PN ---
CVT Progress Note Subjective/Hospital Course: Consult received Patient will need to have tracheostomy in the operating room due to the body habitus and obesity Will proceed with same once the ventilator settings are somewhat down probably early next week Thanks J Objective: Vital Signs Date Time Temp Pulse Resp B/P Pulse Ox O2 Delivery O2 Flow Rate FiO2 04/26/16 15:32 93 50 04/26/16 14:00 97 04/26/16 12:00 99.1 85 15 97/63 93 04/26/16 12:00 50 04/26/16 12:00 85 04/26/16 11:45 90 50 04/26/16 10:00 98 04/26/16 08:06 92 50 04/26/16 08:00 50 04/26/16 08:00 100 04/26/16 08:00 98.7 100 15 145/85 92 04/26/16 06:00 96 04/26/16 04:00 98.9 79 15 125/72 95 04/26/16 04:00 77 04/26/16 04:00 94 50 04/26/16 04:00 50 04/26/16 02:00 81 04/26/16 01:12 92 50 04/26/16 00:00 80 04/26/16 00:00 50 04/26/16 00:00 98.8 79 15 114/70 92 04/25/16 22:00 81 04/25/16 20:00 50 04/25/16 20:00 99.1 112 15 124/77 91 04/25/16 20:00 112 04/25/16 19:50 92 50 04/25/16 18:00 122 Result Diagram: 04/26/16 0530 04/26/16 0530 Renetta Reyes MD Apr 26, 2016 17:37
[2016-04-26] MEDS: PANTOPRAZOLE SODIUM 40 MG VIAL IV PUSH SCH (18:05)
[2016-04-26] MEDS: LACTULOSE SYRUP 20 GM/30 ML CUP PO SCH ×2 (18:05→19:29)
[2016-04-27] VITALS (17 sets, daily range): BP systolic 109–132; BP diastolic 61–80; PULSE 88–125; RESP 15; TEMP 98.3–102.3; O2SAT 92–98
[2016-04-27] MEDS: ARTIFICIAL TEARS OPTH SOLN 15 ML BTL EACH EYE SCH ×6 (00:42→19:25)
[2016-04-27] MEDS: RESP: ALBUTEROL 2.5 MG/IPRATROPIUM 0.5 MG NEB (SCH) NEB ×2 (04:14→08:03)
[2016-04-27] MEDS: METOCLOPRAMIDE HCL 10 MG/2 ML VIAL IV PUSH SCH ×3 (05:26→19:24)
[2016-04-27] MEDS: INSULIN NovoLIN REGULAR SUPPLEMENTAL SCALE SQ SCH ×5 (05:27→23:27)
[2016-04-27] MEDS: ENOXAPARIN SODIUM 40 MG/0.4 ML SYRINGE SQ SCH ×2 (05:27→16:46)
[2016-04-27] MEDS: FREE WATER G-TUBE SCH ×5 (05:27→23:25)
[2016-04-27 06:25] LABS: AUTOMATED NEUTROPHIL # 10.3 TH/MM3 (1.8-7.7); BASOPHIL % 0.4 % (0.0-2.0); EOSINOPHIL # 0.3 TH/MM3 (0-0.4); HEMATOCRIT 37.5 % (39.0-51.0); LYMPH % 15.6 % (9.0-44.0); LYMPHOCYTE # 2.1 TH/MM3 (1.0-4.8); MEAN CORPUSCULAR HEMOGLOBIN 26.7 PG (27.0-34.0); MEAN CORPUSCULAR HGB CONC 31.8 % (32.0-36.0); MONO % 6.3 % (0.0-8.0); NEUT % 75.7 % (16.0-70.0); PLATELET COUNT 196 TH/MM3 (150-450); RED BLOOD COUNT 4.46 MIL/MM3 (4.50-5.90); RED CELL DISTRIBUTION WIDTH 15.9 % (11.6-17.2); WHITE BLOOD COUNT 13.6 TH/MM3 (4.0-11.0)
[2016-04-27] MEDS: MIDAZOLAM 100 MG/ML INJ 100 ML IV SCH ×2 (06:39→23:40)
[2016-04-27 06:43] LABS: HEMO FLAGS AUTO DIFF
[2016-04-27 06:56] LABS: ALKALINE PHOSPHATASE 74 U/L (45-117); ALT (GPT) 155 U/L (12-78); ANION GAP 9 MEQ/L (5-15); AST (GOT) 34 U/L (15-37); BICARBONATE 32.2 MEQ/L (21.0-32.0); BLOOD UREA NITROGEN 32 MG/DL (7-18); CHLORIDE 105 MEQ/L (98-107); GLOMERULAR FILTRATION RATE 123 ML/MIN (>89); MAGNESIUM 2.9 MG/DL (1.5-2.5); POTASSIUM 3.7 MEQ/L (3.5-5.1); SODIUM (NA) 146 MEQ/L (136-145); TOTAL BILIRUBIN ADULT 0.7 MG/DL (0.2-1.0)
[2016-04-27 07:40] LABS: BANDS 1 % (0-6); EOSINOPHILS 1 % (0-4); MYELOCYTES 4 % (0-0); NEUTROPHIL # MANUAL DIFF 11.3 TH/MM3 (1.8-7.7); POLYS (SEG NEUTROPHILS) 78 % (16-70); WBC DIFF SAMPLE 100
[2016-04-27 07:41] LABS: PLATELET ESTIMATE SMEAR NORMAL (NORMAL); PLATELET MORPHOLOGY NORMAL (NORMAL); SCAN/DIFF FINAL DIFF MANUAL
[2016-04-27] MEDS: LACTULOSE SYRUP 20 GM/30 ML CUP PO SCH ×4 (07:45→19:24)
[2016-04-27] MEDS: ACETAMINOPHEN 650 MG/20.3 ML UDC PO PRN ×2 (07:45→19:28)
[2016-04-27] MEDS: SENNOSIDES SYRUP 8.8 MG/5 ML CUP PO/TUBE SCH ×2 (07:46→19:24)
[2016-04-27] MEDS: POLYETHYLENE GLYCOL 17 GM PKG PO SCH ×2 (07:46→19:25)
[2016-04-27] MEDS: DOCUSATE SODIUM 100 MG/10 ML UDC PO SCH ×2 (07:46→19:24)
[2016-04-27] MEDS: POTASSIUM CHLORIDE 25 MEQ EFFERVESCENT TAB PO SCH ×2 (07:46→19:24)
[2016-04-27] MEDS: methylPREDNISolone SOD SUCC 40 MG/1 ML VIAL IV PUSH SCH (07:46)
[2016-04-27] MEDS: INSULIN DETEMIR 100 UNITS/ML VIAL SQ SCH ×2 (07:47→19:25)
[2016-04-27] MEDS: LACTOBACILLUS ACIDOPHILUS TAB PO SCH ×3 (07:47→16:45)
[2016-04-27] MEDS: FUROSEMIDE 20 MG/2 ML VIAL IV PUSH SCH ×2 (07:47→19:24)
[2016-04-27] MEDS: BETAMETHASONE/CLOTRIMAZOLE CREAM 15 GM TOPICAL SCH ×2 (07:48→19:25)
[2016-04-27] MEDS: ARTIFICIAL TEARS OPTH OINT 3.5 APPLIC/3.5 GM TUBO EACH EYE SCH ×2 (07:48→19:25)
[2016-04-27] MEDS: CHLORHEXIDINE 0.12% (ORAL KIT) 15 ML CUP MT SCH ×2 (07:49→19:26)
[2016-04-27] MEDS: BENEPROTEIN POWDER 1 PACK G-TUBE SCH ×3 (08:22→16:46)
[2016-04-27] MEDS: SODIUM CHLORIDE 0.9% FLUSH 5 ML FLUSH IVF SCH (08:23)
--- NOTE | 2016-04-27 09:22 | HHI.IDPN ---
Subjective Subjective Remarks Notes reviewed. Temps 102.3 this morning Has a lot of secretions from ET, color is light green On the vent, FiO2 50%, PEEP at 10 Line - PICC Good UO On fentanyl and versed is a 50 years old obese male with past medical history significant for undiagnosed sleep apnea, super morbid obesity, type 2 diabetes was brought to the emergency department on 03/24/16. ID following for MSSA pneumonia. Antibiotics Vancomycin IV Lines PICC 04/15 Past Medical History Reviewed Allergies: Coded Allergies: Penicillin (Verified Allergy, Severe, Swelling, 03/24/16) Tetanus Toxoid (Verified Allergy, Unknown, Swelling, 03/24/16) Objective . Vital Signs Date Time Temp Pulse Resp B/P Pulse Ox O2 Delivery O2 Flow Rate FiO2 04/27/16 07:59 95 50 04/27/16 06:00 92 04/27/16 04:07 94 50 04/27/16 04:00 92 04/27/16 04:00 50 04/27/16 04:00 91 15 128/73 94 04/27/16 02:00 92 04/27/16 00:02 94 50 04/27/16 00:00 50 04/27/16 00:00 88 04/27/16 00:00 98.3 89 15 125/66 94 04/26/16 22:00 92 04/26/16 20:51 94 50 04/26/16 20:00 99.3 86 15 125/65 93 04/26/16 20:00 50 04/26/16 20:00 92 04/26/16 18:00 99 04/26/16 16:00 115 04/26/16 16:00 50 04/26/16 16:00 99.6 115 15 108/79 92 04/26/16 15:32 93 50 04/26/16 14:00 97 04/26/16 12:00 99.1 85 15 97/63 93 04/26/16 12:00 50 04/26/16 12:00 85 04/26/16 11:45 90 50 04/26/16 10:00 98 04/26/16 04/26/16 04/27/16 15:00 23:00 07:00 Intake Total 1614 ml 902 ml 1218 ml Output Total 1350 ml 1000 ml 350 ml Balance 264 ml -98 ml 868 ml IV Total 859 ml 325 ml 643 ml Tube Feeding 355 ml 277 ml 275 ml Other 400 ml 300 ml 300 ml Output Urine Total 1350 ml 1000 ml 350 ml # Bowel Movements 1 0 0 . Laboratory Tests Test 04/26/16 04/27/16 05:30 05:30 White Blood Count 12.3 TH/MM3 13.6 TH/MM3 Red Blood Count 4.54 MIL/MM3 4.46 MIL/MM3 Hemoglobin 12.4 GM/DL 11.9 GM/DL Hematocrit 37.7 % 37.5 % Mean Corpuscular Volume 83.1 FL 84.0 FL Mean Corpuscular Hemoglobin 27.3 PG 26.7 PG Mean Corpuscular Hemoglobin 32.9 % 31.8 % Concent Red Cell Distribution Width 15.6 % 15.9 % Platelet Count 187 TH/MM3 196 TH/MM3 Mean Platelet Volume 10.1 FL 9.3 FL Neutrophils (%) (Auto) 76.7 % 75.7 % Lymphocytes (%) (Auto) 15.1 % 15.6 % Monocytes (%) (Auto) 5.0 % 6.3 % Eosinophils (%) (Auto) 2.8 % 2.0 % Basophils (%) (Auto) 0.4 % 0.4 % Neutrophils # (Auto) 9.4 TH/MM3 10.3 TH/MM3 Lymphocytes # (Auto) 1.9 TH/MM3 2.1 TH/MM3 Monocytes # (Auto) 0.6 TH/MM3 0.9 TH/MM3 Eosinophils # (Auto) 0.3 TH/MM3 0.3 TH/MM3 Basophils # (Auto) 0.1 TH/MM3 0.0 TH/MM3 CBC Comment AUTO DIFF AUTO DIFF Differential Total Cells 100 100 Counted Neutrophils % (Manual) 79 % 78 % Band Neutrophils % 1 % 1 % Lymphocytes % 9 % 11 % Monocytes % 3 % 5 % Eosinophils % 3 % 1 % Basophils % 1 % Neutrophils # (Manual) 10.3 TH/MM3 11.3 TH/MM3 Metamyelocytes 1 % Myelocytes 2 % 4 % Promyelocytes 1 % Differential Comment FINAL DIFF FINAL DIFF MANUAL MANUAL Platelet Estimate NORMAL NORMAL Platelet Morphology Comment NORMAL NORMAL Red Cell Morphology Comment NORMAL NORMAL Laboratory Tests Test 04/26/16 04/27/16 05:30 05:30 Sodium Level 146 MEQ/L 146 MEQ/L Potassium Level 3.4 MEQ/L 3.7 MEQ/L Chloride Level 106 MEQ/L 105 MEQ/L Carbon Dioxide Level 30.1 MEQ/L 32.2 MEQ/L Anion Gap 10 MEQ/L 9 MEQ/L Blood Urea Nitrogen 33 MG/DL 32 MG/DL Creatinine 0.49 MG/DL 0.68 MG/DL Estimat Glomerular Filtration 180 ML/MIN 123 ML/MIN Rate Random Glucose 126 MG/DL 128 MG/DL Calcium Level 8.9 MG/DL 8.8 MG/DL Phosphorus Level 3.9 MG/DL 3.7 MG/DL Magnesium Level 2.6 MG/DL 2.9 MG/DL Total Bilirubin 0.8 MG/DL 0.7 MG/DL Aspartate Amino Transf 41 U/L 34 U/L (AST/SGOT) Alanine Aminotransferase 161 U/L 155 U/L (ALT/SGPT) Alkaline Phosphatase 76 U/L 74 U/L Total Protein 6.6 GM/DL 6.6 GM/DL Albumin 2.8 GM/DL 2.8 GM/DL Microbiology Date/Time Procedure Status Source Growth 04/25/16 10:00 Urine Culture - Final Complete Urine Catheterized Urine NO GROWTH IN 48 HOURS. Imaging Chest X-Ray 04/25/16 0000 Signed Impressions: Service Date/Time: Monday, April 25, 2016 13:33 - CONCLUSION: Stable chest Bernard Hartman MD Chest X-Ray 04/23/16 0600 Signed Impressions: Service Date/Time: Saturday, April 23, 2016 03:46 - CONCLUSION: Bilateral areas of consolidation or atelectasis being worse on the left. Ubaldo Coombs MD Abdomen X-Ray 03/31/16 0000 Signed Impressions: Service Date/Time: Thursday, March 31, 2016 09:58 - CONCLUSION: Benign abdomen. Rodrigo Martinez MD Chest CT 03/28/16 0836 Signed Impressions: Service Date/Time: Monday, March 28, 2016 09:57 - CONCLUSION: Development areas of air bronchograms and consolidation more prominent in the right and left posterior basilar segments of the lower lobes. ET tube above the chanelle. Bernard Hartman MD CT Angiography 03/24/16 1121 Signed Impressions: Service Date/Time: Thursday, March 24, 2016 12:47 - CONCLUSION: 1. There is respiratory motion artifact but no PE is identified through most of the segmental level pulmonary arteries. 2. Mildly enlarged main pulmonary artery may indicate pulmonary arterial hypertension. 3. 11 mm left lower lobe noncalcified pulmonary nodule. Suggest correlation with any prior imaging studies that could confirm longer-term stability. If none are available consider short-term followup noncontrast chest CT in approximately 3 months. Ubaldo Rodas MD Chest X-Ray 04/19/16 0000 Signed Impressions: Service Date/Time: April 03:20 - CONCLUSION: 1. Cardiomegaly and findings of congestive heart failure. There has been no significant change when compared to the prior exam. Kyaw Rojo MD Chest X-Ray 04/18/16 0000 Signed Impressions: Service Date/Time: Monday, April 18, 2016 09:59 - CONCLUSION: 1. Support equipment in good position. 2. Small left basilar effusion and consolidative changes in the left lower lobe and perihilar region on the right. Dc Barton MD Chest X-Ray 04/16/16 0600 Signed Impressions: Service Date/Time: Saturday, April 16, 2016 03:58 - CONCLUSION: 1. Cardiomegaly. Bilateral lower lobe atelectasis versus pneumonia. There has been no significant change when compared to the prior exam. Kyaw Rojo MD Abdomen X-Ray 03/31/16 0000 Signed Impressions: Service Date/Time: Thursday, March 31, 2016 09:58 - CONCLUSION: Benign abdomen. Rodrigo Martinez MD Chest CT 03/28/16 0836 Signed Impressions: Service Date/Time: Monday, March 28, 2016 09:57 - CONCLUSION: Development areas of air bronchograms and consolidation more prominent in the right and left posterior basilar segments of the lower lobes. ET tube above the chanelle. Bernard Hartman MD CT Angiography 03/24/16 1121 Signed Impressions: Service Date/Time: Thursday, March 24, 2016 12:47 - CONCLUSION: 1. There is respiratory motion artifact but no PE is identified through most of the segmental level pulmonary arteries. 2. Mildly enlarged main pulmonary artery may indicate pulmonary arterial hypertension. 3. 11 mm left lower lobe noncalcified pulmonary nodule. Suggest correlation with any prior imaging studies that could confirm longer-term stability. If none are available consider short-term followup noncontrast chest CT in approximately 3 months. Ubaldo Rodas MD Chest X-Ray 04/12/16 06 Signed Impressions: Service Date/Time: April 04:14 - CONCLUSION: Worsening appearance of the chest. Henrry Andrea MD Chest X-Ray 04/11/16 0000 Signed Impressions: Service Date/Time: Monday, April 11, 2016 04:09 - CONCLUSION: No significant change has occurred. Henrry Andrea MD Chest X-Ray 04/09/16 09 Signed Impressions: Service Date/Time: Saturday, April 09, 2016 09:12 - CONCLUSION: 1. Diffuse alveolar consolidation of the left lung and right upper lung field consistent with pneumonia and/or asymmetric pulmonary edema. Clinical correlation is recommended. 2. Endotracheal tube has its tip 1 cm above the chanelle. This could be pulled back 2 cm for more optimal position. Farhat Montes MD Chest X-Ray 04/05/16599 Signed Impressions: Service Date/Time: April 03:25 - CONCLUSION: 1. Improved basilar consolidation. Residual versus developing right midlung consolidation. 2. Small bilateral pleural effusions are suspected. 3. No change cardiomegaly or lines/tubes. Ubaldo Ortiz MD Chest X-Ray 04/04/16599 Signed Impressions: Service Date/Time: Monday, April 04, 2016 04:44 - CONCLUSION: Worsening bilateral airspace opacities, especially left perihilar. Ubaldo Ortiz MD Chest X-Ray 04/04/16599 Signed Impressions: Service Date/Time: Monday, April 04, 2016 04:44 - CONCLUSION: Worsening bilateral airspace opacities, especially left perihilar. Ubaldo Ortiz MD Chest X-Ray 04/03/16599 Signed Impressions: Service Date/Time: Sunday, April 03, 2016 00:16 - CONCLUSION: Potential developing pneumonia in the right upper lobe. Bibasilar atelectasis modestly worse in the interim. Ubaldo Ortiz MD Chest X-Ray 04/03/16599 Signed Impressions: Service Date/Time: Sunday, April 03, 2016 00:16 - CONCLUSION: Potential developing pneumonia in the right upper lobe. Bibasilar atelectasis modestly worse in the interim. Ubaldo Ortiz MD Chest X-Ray 04/02/16 0925 Signed Impressions: Service Date/Time: Saturday, April 02, 2016 09:22 - CONCLUSION: Place a right jugular catheter terminates superior vena cava with no pneumothorax. Bernard Hartman MD Physical Exam GENERAL: Morbidly obese, on sedation, opens eyes when stimulated, on the vent , NAD SKIN: Cool skin, no cyanosis. No generalized rash HEENT: No icterus, ET in place. Moist mucos CHEST: Coarse BS bilaterally, decreased at bases CARDIAC: regular, no murmur ABDOMEN: soft, obese, (+) BS : Becker in place, urine looks clear MUSCULOSKELETAL: Extremities without clubbing, cyanosis. Pedal edema better NEUROLOGICAL: Awakens easily, responding PSYCH: Unable to assess LINE: No evidence of infection Assessment & Plan Remarks IMPRESSION Leukocytosis, persistent, better today - has been on adequate Abx for pathogens isolated Pneumonia, C/S MSSA - Last CXR stable - S/P RX JACOB Respiratory failure, improving O2 requirement - has extensive infiltrates Morbid obesity Allergy to PCN, swelling Fevers, recurrent - has (+) BC, Staph epi one out 2 BC, has new line PICC - ?new VAP, has MSSA again RECOMMENDATION Check BC and sputum C/S Follow CBC Monitor temps Continue IV vancomycin. Start Azactam Monitor progress D/W RN D/W Elisha Choe MD Apr 27, 2016 09:22
[2016-04-27] MEDS: VANCOMYCIN INJ 1,500 MG in SODIUM CHLORID 0.9% 500 ML INJ 500 ML IV SCH ×2 (11:39→23:25)
[2016-04-27] MEDS: AZTREONAM INJ 2,000 MG in SODIUM CHLORIDE 0.9% INJ 100 ML IV SCH ×2 (11:39→16:49)
[2016-04-27] MEDS: NYSTATIN 100,000 U/GM PWD 15 GM BTL TOPICAL SCH ×2 (11:39→19:24)
[2016-04-27] MEDS ORDERED: POTASSIUM CL 40 MEQ/30 ML LIQ UDC PO ONE (13:00)
--- NOTE | 2016-04-27 13:05 | HHI.CCPN ---
Subjective Remarks/Hospital Course Patient is a 50 years old obese male with past medical history significant for undiagnosed sleep apnea, super morbid obesity, type 2 diabetes was brought to the emergency department on 03/24/16 after feeling light headed and dizzy. On presentation here was found to be hypoxemic and ABG showed severe hypoxemia and hypercarbia. For a recent driving physical he was diagnosed with low oxygen saturations. Patient's oxygen saturation the ED was in the low 80s, which was confirmed on ABG with a oxygen saturation of 78% and PO2 of 46. CTA negative for PE. Patient was initiated on BiPAP therapy with consult to pulmonary Dr. Crane. His oxygenation improved but he continued to be hypercapnic. Today a.m. on nasal cannula his pH was 7.26 and PCO2 was increased at 99, patient was somnolent was placed back on BiPAP and repeat ABG at noon showed pH 7.26 PCO2 98 and pO2 70. This was on 16 BiPAP with FiO2 50%. Critical care was consulted. On my evaluation patient is somnolent but wakes up easily. I reduced the PEEP on BiPAP from 12-7 to facilitate better ventilation. A repeat ANG showed only minimal improvement, so decision made to intubate patient. Glidescope with #4 blade was used. Only propofol was used for induction. Initially I had a Grade 1-2 view, but I was unable to pass tube through the vocal cord to trachea in two attempts. Tube slipped out of Laryngeal opening both times. Dr Garrett intubated patient after NM paralysis with succinylcholine. Post intubation ABG showed improvement in hypercapnia and oxygenation. 03/27/16: Patient remains intubated heavily sedated with propofol and fentanyl. Remained severely hypoxemic on 100% FiO2, PEEP12, chest x-ray shows bibasilar infiltrates. Flagyl added. We'll give 1 dose of vancomycin-Adjust antibiotics according to cultures. Patient super morbid obesity may prevent Prone therapy 03/28: Remains hypoxic but ABG shows marginal improvement in oxygenation. WBC increasing 20.1 today. Start vancomycin scheduled. 03/29: Oxygenation is slightly improved. FiO2 reduced to 50% today. Chest x- ray remains unchanged. On sedation hold patient does wake up and follow commands. WBC count remains at 20 03/30 No acute events overnight. Sedated with Diprivan and Fentanyl. Had T: 100.1 at 4 am. WBC trending down 15.9 today from 20. 03/31 Patient remains sedated with Diprivan, Fentanyl and intubated. Tmax 100.1. Patient required increase O2 overnight now on ACV with PEEP: 12 and FIO2 70%. 04/01: Tmax 99.7. No bowel movement since admission. Patient has bowel sounds. Arousable on the ventilator. We'll attempt prone the patient paralyzed to increase oxygenation status. 04/02: MAXIMUM TEMPERATURE 100.9. Currently 97.7. 5 10 cc stools overnight. Placed on Roto prone yesterday. Saturations currently 94% on Flolan. Diuresed overnight. Creatinine still within normal limits. 04/03: Tmax 101. Currently 99.1. Positive BM. Did not tolerate not being unprone this AM. Saturations much improved prone. Tolerating tube feeding. 04/04: Tmax 100.8. Currently 98.8. +2 L past 24 hours. Attempt to on prone today. Positive BM. C. difficile negative. Remains paralyzed. 04/05: Remains sedated, orally intubated on neuromuscular blockade on mechanical ventilation. Remains on Rota prone bed. On insulin drip. 04/06: Remains sedated, orally intubated on neuromuscular blockade, on mechanical ventilation. Remains on Rota prone bed. Insulin drip continues. 04/07 Patient remains on Rotoprone bed sedated with Diprivan, Versed, Fentanyl in addition patient is on Nimbex. Afebrile. On Insulin drip 5u/hr. 04/08 Patient remains sedated and intubated and on Nimbex. Off insulin drip. On PRVC/AC with RR 15, TV 550, IT: 1.65, PEEP: 15 and FIO2 100%. T: 100.2 at 4 am. 04/09 Patient is sedated, intubated and remains on neuromuscular blockade. Vent setting unchanged. afebrile. 04/10 Patient remains sedated and intubated and on Nimbex. On PRVC/AC, RR 15, TV 500, PEEP: 15, FIO2 90%, IT:1.65, on Flolan drip. Remains on Rotoprone bed. 04/11 minimal improvement in oxygenation, FiO2 now at 75 - continue to improve oxygenation, worsening CXR 04/13/10 continue to improve oxygenation DC'd prone position last night 04/14- improving oxygenation, Nimbex discontinued as well as prone position 04/16 Patient is sedated with Versed and Fentanyl and intubated. Off rotoprone bed. On PRVC/AC RR 15, TV 550, IT 1.65, PEEP:15, FIO2 50%. 04/17 Patient remains sedated with Versed and Fentanyl. Afebrile, tolerating tube feeds 04/18 No acute events overnight Sedated and intubated. Afebrile. On PRVC/AC RR 15 , TV 550, IT 1.65, PEEP:15, FIO2 60% 04/19: Spiking fever up to 101, pancultured and 1 dose of vancomycin given by ID. On weaning doses of Flolan. FiO2 down to 50% I have reduced PEEP to 14. Remains critically ill 04/20: No fever. Sputum cx with Staph -S pending. Fio2 50% PEEP remains at 14. TV increased to 650 to improve lung recruitment. On weaning dose of Flolan-DC after current bag 04/21:Afebrile. Hyponatremia resolving, the patient will be placed on free water flushes. 04/22:The patient had an episode of acute desaturation requiring FiO2 increased to 90%. Stat chest x-ray stat ABG aggressive pulmonary toileting and suctioning , resolution of symptoms FiO2 now 55%. ABGs within normal limits. 04/23: Tmax 99.5. Currently afebrile. O2 sat 50%. PEEP down to 13. One small bowel movement overnight. 04/24: Currently afebrile. O2 sat 45%. PEEP to 12. One BM. Tolerating tube feeds. 04/25: Afebrile. PEEP down to 11. Positive BM. Tolerating tube feeds. Awake on the ventilator with eyes open. 04/26: Afebrile. PEEP down to 10. Time to feeding. Awake and alert eyes open. Subjective 04/27: Suspected fever overnight. One bowel movement documented. Will decreased PEEP to 9. Awake and alert and follows commands. Objective Vital Signs Date Time Temp Pulse Resp B/P Pulse Ox O2 Delivery O2 Flow Rate FiO2 04/27/16 07:59 95 50 04/27/16 06:00 92 04/27/16 04:00 15 128/73 04/27/16 00:00 98.3 Intake and Output 04/26/16 04/26/16 04/27/16 08:00 16:00 00:00 Intake Total 1307 ml 1614 ml 902 ml Output Total 300 ml 1350 ml 1000 ml Balance 1007 ml 264 ml -98 ml Result Diagram: 04/27/16 0530 04/27/16 0530 Other Results Microbiology Date/Time Procedure Status Source Growth 04/27/16 11:34 Aerobic Blood Culture Received Blood Peripheral Pending 04/27/16 11:34 Anaerobic Blood Culture Received Blood Peripheral Pending 04/27/16 11:00 Gram Stain Received Sputum Endotracheal Pending 04/27/16 11:00 Sputum Culture Received Sputum Endotracheal Pending 04/25/16 10:00 Urine Culture - Final Complete Urine Catheterized Urine NO GROWTH IN 48 HOURS. Imaging Last Impressions Chest X-Ray 04/25/16 0000 Signed Impressions: Service Date/Time: Monday, April 25, 2016 13:33 - CONCLUSION: Stable chest Bernard Hartman MD Abdomen X-Ray 03/31/16 0000 Signed Impressions: Service Date/Time: Thursday, March 31, 2016 09:58 - CONCLUSION: Benign abdomen. Rodrigo Martinez MD Chest CT 03/28/16 0836 Signed Impressions: Service Date/Time: Monday, March 28, 2016 09:57 - CONCLUSION: Development areas of air bronchograms and consolidation more prominent in the right and left posterior basilar segments of the lower lobes. ET tube above the chanelle. Bernard Hartman MD CT Angiography 03/24/16 1121 Signed Impressions: Service Date/Time: Thursday, March 24, 2016 12:47 - CONCLUSION: 1. There is respiratory motion artifact but no PE is identified through most of the segmental level pulmonary arteries. 2. Mildly enlarged main pulmonary artery may indicate pulmonary arterial hypertension. 3. 11 mm left lower lobe noncalcified pulmonary nodule. Suggest correlation with any prior imaging studies that could confirm longer-term stability. If none are available consider short-term followup noncontrast chest CT in approximately 3 months. Ubaldo Rodas MD Objective Remarks GENERAL: 50-year-old male, critically ill. Orally intubated on mechanical ventilation, on sedation SKIN: Seborrheic dermatitis of the face HEAD: Atraumatic. Normocephalic. EYES: Pupils equal round and slightly reactive about 3 millimeters bilaterally. ENT: NG tube in place. Orotracheally intubated NECK: Very large neck. Trachea midline. CARDIOVASCULAR: Distant heart sounds. RRR. S1, S2. No S4. Without murmur RESPIRATORY: Orally intubated on mechanical ventilation, Breath sounds equal bilaterally. Diminished breath sounds due to body habitus. GASTROINTESTINAL: Abdomen soft, obese, nontender. Severe central obesity MUSCULOSKELETAL: Extremities with trace to 1+ nonpitting bilateral lower extremity edema. Left antecubital PICC line is clean dry and intact NEUROLOGICAL: Arousable on the ventilator. Follows commands. Wiggles toes. Squeezes hands Vascular Central Line Catheter: Yes Assessment to: Continue Date of Insertion: Apr 02, 2016 Line: PICC Side: Left Location: Antecubital A/P Assessment and Plan Neuro/Psych: Likely SERENITY Toxic metabolic encephalopathy Currently On Fentanyl drip at 150 mcg an hour and Versed infusion 5 mg an hour for sedation and analgesia while intubated Goal of RASS a -2 Daily sedation vacation when appropriate PEEP< 8, FIO2.50 Acetaminophen for fever Pulm: Acute hypoxemic respiratory failure JACOB [facility] History of staph aureus pneumonia/HCAP ARDS On PRVC/AC RR 15, TV 650, IT:1.65, PEEP:9, FIO2 50% Continue with vent support keep sat >90%. Bronchodilators every 6 hours and every 2 hours as needed ICU vent bundle. Will need trach once oxygen requirements, PEEP improved. Flolan off since 04/21 on Solumedrol 40mg daily Advanced ET tube 04/24 from 19-22 cm CV: Monitor HR and BP keep MAP>65mmHg 2-D echo 03/26 EF 60%. No regional wall motion abnormality. Mild MR/TR. /FEN: Hypokalemia Hypernatremia Monitor renal function, I/O's, electrolytes replacement per protocol. On Lasix 20mg Q12. K replacement . Scheduled K daily. Given additional 40 mEq 1 now GI: Constipation Moderate protein calorie malnutrition On Glucerna 1.5@45ml/hr with 1 scoop whey protein 3 times a day, Protonix 40mg daily On Reglan 10mg Q8, Senna and Colace twice a day.. Added MiraLAX twice a day and lactulose 4 times a day. 1 dose Relistor and mineral oil today. ID: Staph aureus pneumonia Possible staph bacteremia Pertinent culture Sputum/blood cultures 2 pending 04/27 04/25 - urine -no growth 04/19 - blood cultures 2 out of 4 - staph aureus 04/19 - sputum - staph aureus 04/08 - sputum - staph aureus 04/03 - sputum - staph aureus 03/30 - sputum- -staph aureus 03/27 - sputum - staph aureus 03/26 - blood - staph hominis On vancomycin 2 g IV every 12 are since 04/19. Start Azactam 04/27. Per infectious disease Heme: Leukocytosis Monitor CBC/coags Endo: Diabetes mellitus SSI for glycemic control (high scale) 30 units sliding scale insulin scale insulin in the past 24 hours, Levemir insulin 80 U Q12 MSK Morbid obesity Weight loss encouraged DVT, GI prophylaxis -Bilateral lower extremity SCDs. IV Protonix 40 mg daily. Lovenox 40 mg sq BID LINES: -Left upper extremity PICC line placed 04/15 Critical Care: The total care time was 35 minutes. Time to perform other separately billable procedures was not included in the critical care time. Codey Florentino MD Apr 27, 2016 13:05
--- NOTE | 2016-04-27 14:04 | RADRPT ---
EXAM DATE/TIME: 04/27/2016 13:37 [facility] COMPARISON: CHEST SINGLE AP, April 25, 2016, 13:33. INDICATIONS : Fever. MEDICAL HISTORY : Diabetes mellitus type II. SURGICAL HISTORY : None. ENCOUNTER: Subsequent ACUITY: 1 month PAIN SCORE: Non-responsive. LOCATION: Bilateral chest FINDINGS: ET tube, nasogastric tube, PICC line are in good position. Bilateral parenchymal changes are noted in both lung bases. There is no pneumothorax. CONCLUSION: 1. Under aerated. 2. Support apparatus in good position. Bear Barton MD FACR on April 27, 2016 at 13:58 Board Certified Radiologist. This report was verified electronically.
[2016-04-27] MEDS: RESP: ALBUTEROL 2.5 MG/IPRATROPIUM 0.5 MG NEB (PRN) NEB (16:05)
--- NOTE | 2016-04-27 16:19 | HHI.HCPN ---
Reason for visit a. To assist with evaluation and management of symptoms including: Dyspnea, anxiety b. To assist medical decision maker(s) with: better understanding of current medical conditions; weighing benefits/burdens of medical treatment options; making medical treatment decisions. Subjective/Interval History INTERVAL NOTE: Pt remains in ICU, on mech vent. Still on sedation fentanyl and versed. Nursing reports when lightened, he has some tachycardia, tachypnea. Tolerating tube feeding. PT seen in room, no visitors present, minimally responsive to my exam. Ongoing fever, more than 102 today. New chest x-ray without obvious new changes. Dr. Florentino reports that patient's other brother came to visit and told the staff that he had a similar problem in had a tracheostomy and recovered from it in the past. Discussed with primary nurse. . Family/friend interactions Attempted to call brother Farhat, no answer. . Advance Directives Living Will: Completed, but not made available Health Care Surrogate: Copy in medical record Durable Power of Manager Underwriting: Completed, but not made available Advance Directive Specifics Date completed: 2016 Health Care Surrogate(s): Names brother Farhat Leger as HCS Objective Vital Signs Date Time Temp Pulse Resp B/P Pulse Ox O2 Delivery O2 Flow Rate FiO2 04/27/16 16:06 93 50 04/27/16 16:00 99 04/27/16 16:00 50 04/27/16 14:00 117 04/27/16 12:00 50 04/27/16 12:00 101.3 125 15 111/72 92 04/27/16 12:00 125 04/27/16 10:00 108 04/27/16 08:00 98 04/27/16 08:00 50 04/27/16 08:00 102.3 98 15 109/61 94 04/27/16 07:59 95 50 04/27/16 06:00 92 04/27/16 04:07 94 50 04/27/16 04:00 92 04/27/16 04:00 50 04/27/16 04:00 91 15 128/73 94 04/27/16 02:00 92 04/27/16 00:02 94 50 04/27/16 00:00 50 04/27/16 00:00 88 04/27/16 00:00 98.3 89 15 125/66 94 04/26/16 22:00 92 04/26/16 20:51 94 50 04/26/16 20:00 99.3 86 15 125/65 93 04/26/16 20:00 50 04/26/16 20:00 92 04/26/16 18:00 99 Intake & Output 04/27/16 04/27/16 07:00 19:00 Intake Total 2120 ml 1608 ml Output Total 1350 ml 1350 ml Balance 770 ml 258 ml IV Total 968 ml 949 ml Tube Feeding 552 ml 419 ml Other 600 ml 240 ml Output Urine Total 1350 ml 1350 ml # Bowel Movements 0 2 Physical Exam CONSTITUTIONAL/GENERAL: This is a morbidly obese patient, in ICU on mechanical vent TUBES/LINES/DRAINS: ET tube, OG tube, central line, Becker catheter, rectal drain SKIN: No jaundice, rashes, or lesions.no wounds seen posteriorly. + generalized edema CARDIOVASCULAR: Regular rate and rhythm, no murmurs, still tachycardic. Distant heart sounds. Peripheral pulses symmetric. RESPIRATORY/CHEST: Symmetric, unlabored respirations via ET tube to mechanical vent. Decreased air movement throughout, clear, equal bilaterally. GASTROINTESTINAL: Abdomen soft, obese. Unable to determine to tenderness. TF infusing via OG tube. +liq stool via rectal drain. Bowel sounds hypoactive. MUSCULOSKELETAL: Extremities without clubbing, cyanosis. + generalized edema NEUROLOGICAL: Sedated, minimally responsive to exam. PSYCHIATRIC: No obvious anxiety/depression--limited exam due to clinical condition . Diagnostic Tests Laboratory Laboratory Tests Test 04/25/16 04/25/16 04/25/16 04/26/16 03:30 10:00 22:45 05:30 White Blood Count 16.0 TH/MM3 12.3 TH/MM3 (4.0-11.0) (4.0-11.0) Red Blood Count 4.63 MIL/MM3 4.54 MIL/MM3 (4.50-5.90) (4.50-5.90) Hemoglobin 12.7 GM/DL 12.4 GM/DL (13.0-17.0) (13.0-17.0) Hematocrit 38.4 % 37.7 % (39.0-51.0) (39.0-51.0) Mean Corpuscular Volume 83.0 FL 83.1 FL (80.0-100.0) (80.0-100.0) Mean Corpuscular Hemoglobin 27.4 PG 27.3 PG (27.0-34.0) (27.0-34.0) Mean Corpuscular Hemoglobin 33.0 % 32.9 % Concent (32.0-36.0) (32.0-36.0) Red Cell Distribution Width 15.2 % 15.6 % (11.6-17.2) (11.6-17.2) Platelet Count 171 TH/MM3 187 TH/MM3 (150-450) (150-450) Mean Platelet Volume 10.0 FL 10.1 FL (7.0-11.0) (7.0-11.0) Neutrophils (%) (Auto) 83.5 % 76.7 % (16.0-70.0) (16.0-70.0) Lymphocytes (%) (Auto) 9.8 % 15.1 % (9.0-44.0) (9.0-44.0) Monocytes (%) (Auto) 4.9 % (0.0-8.0) 5.0 % (0.0-8.0) Eosinophils (%) (Auto) 1.4 % (0.0-4.0) 2.8 % (0.0-4.0) Basophils (%) (Auto) 0.4 % (0.0-2.0) 0.4 % (0.0-2.0) Neutrophils # (Auto) 13.4 TH/MM3 9.4 TH/MM3 (1.8-7.7) (1.8-7.7) Lymphocytes # (Auto) 1.6 TH/MM3 1.9 TH/MM3 (1.0-4.8) (1.0-4.8) Monocytes # (Auto) 0.8 TH/MM3 0.6 TH/MM3 (0-0.9) (0-0.9) Eosinophils # (Auto) 0.2 TH/MM3 0.3 TH/MM3 (0-0.4) (0-0.4) Basophils # (Auto) 0.1 TH/MM3 0.1 TH/MM3 (0-0.2) (0-0.2) CBC Comment DIFF FINAL AUTO DIFF Differential Comment FINAL DIFF MANUAL Sodium Level 145 MEQ/L 146 MEQ/L (136-145) (136-145) Potassium Level 3.5 MEQ/L 3.4 MEQ/L (3.5-5.1) (3.5-5.1) Chloride Level 107 MEQ/L 106 MEQ/L (98-107) (98-107) Carbon Dioxide Level 29.5 MEQ/L 30.1 MEQ/L (21.0-32.0) (21.0-32.0) Anion Gap 9 MEQ/L (5-15) 10 MEQ/L (5-15) Blood Urea Nitrogen 34 MG/DL (7-18) 33 MG/DL (7-18) Creatinine 0.63 MG/DL 0.49 MG/DL (0.60-1.30) (0.60-1.30) Estimat Glomerular Filtration 135 ML/MIN 180 ML/MIN Rate (>89) (>89) Random Glucose 170 MG/DL 126 MG/DL (74-106) (74-106) Calcium Level 9.0 MG/DL 8.9 MG/DL (8.5-10.1) (8.5-10.1) Urine Color YELLOW (YELLW/STRAW) Urine Turbidity HAZY (CLEAR) Urine pH 6.0 (5.0-8.5) Urine Specific [place] 1.024 (1.002-1.035) Urine Protein 30 mg/dL (NEG-TRACE) Urine Glucose (UA) NEG mg/dL (NEG) Urine Ketones NEG mg/dL (NEG) Urine Occult Blood MOD (NEG) Urine Nitrite NEG (NEG) Urine Bilirubin NEG (NEG) Urine Urobilinogen 2.0 MG/DL (LESS THAN 2.0) Urine Leukocyte Esterase LARGE (NEG) Urine RBC /hpf (0-3) Urine WBC 38 /hpf (0-5) Urine Squamous Epithelial <1 /hpf (0-5) Cells Urine Transitional Epithelial <1 /hpf (NONE) Cells Urine Calcium Oxalate Crystals OCC /hpf (NONE) Urine Bacteria FEW /hpf (NONE) Urine Hyaline Casts 1 /lpf (RARE) Urine Mucus FEW /lpf (OCC) Microscopic Urinalysis Comment CATH-CULTURE IND Vancomycin Level Trough 18.5 MCG/ML (5.0-10.0) Differential Total Cells 100 Counted Neutrophils % (Manual) 79 % (16-70) Band Neutrophils % 1 % (0-6) Lymphocytes % 9 % (9-44) Monocytes % 3 % (0-8) Eosinophils % 3 % (0-4) Basophils % 1 % (0-2) Neutrophils # (Manual) 10.3 TH/MM3 (1.8-7.7) Metamyelocytes 1 % (0-1) Myelocytes 2 % (0-0) Promyelocytes 1 % (0-0) Platelet Estimate NORMAL (NORMAL) Platelet Morphology Comment NORMAL (NORMAL) Red Cell Morphology Comment NORMAL (NORMAL) Phosphorus Level 3.9 MG/DL (2.5-4.9) Magnesium Level 2.6 MG/DL (1.5-2.5) Total Bilirubin 0.8 MG/DL (0.2-1.0) Aspartate Amino Transf 41 U/L (15-37) (AST/SGOT) Alanine Aminotransferase 161 U/L (12-78) (ALT/SGPT) Alkaline Phosphatase 76 U/L (45-117) Total Protein 6.6 GM/DL (6.4-8.2) Albumin 2.8 GM/DL (3.4-5.0) Test 04/27/16 05:30 White Blood Count 13.6 TH/MM3 (4.0-11.0) Red Blood Count 4.46 MIL/MM3 (4.50-5.90) Hemoglobin 11.9 GM/DL (13.0-17.0) Hematocrit 37.5 % (39.0-51.0) Mean Corpuscular Volume 84.0 FL (80.0-100.0) Mean Corpuscular Hemoglobin 26.7 PG (27.0-34.0) Mean Corpuscular Hemoglobin 31.8 % Concent (32.0-36.0) Red Cell Distribution Width 15.9 % (11.6-17.2) Platelet Count 196 TH/MM3 (150-450) Mean Platelet Volume 9.3 FL (7.0-11.0) Neutrophils (%) (Auto) 75.7 % (16.0-70.0) Lymphocytes (%) (Auto) 15.6 % (9.0-44.0) Monocytes (%) (Auto) 6.3 % (0.0-8.0) Eosinophils (%) (Auto) 2.0 % (0.0-4.0) Basophils (%) (Auto) 0.4 % (0.0-2.0) Neutrophils # (Auto) 10.3 TH/MM3 (1.8-7.7) Lymphocytes # (Auto) 2.1 TH/MM3 (1.0-4.8) Monocytes # (Auto) 0.9 TH/MM3 (0-0.9) Eosinophils # (Auto) 0.3 TH/MM3 (0-0.4) Basophils # (Auto) 0.0 TH/MM3 (0-0.2) CBC Comment AUTO DIFF Differential Total Cells 100 Counted Neutrophils % (Manual) 78 % (16-70) Band Neutrophils % 1 % (0-6) Lymphocytes % 11 % (9-44) Monocytes % 5 % (0-8) Eosinophils % 1 % (0-4) Neutrophils # (Manual) 11.3 TH/MM3 (1.8-7.7) Myelocytes 4 % (0-0) Differential Comment FINAL DIFF MANUAL Platelet Estimate NORMAL (NORMAL) Platelet Morphology Comment NORMAL (NORMAL) Red Cell Morphology Comment NORMAL (NORMAL) Sodium Level 146 MEQ/L (136-145) Potassium Level 3.7 MEQ/L (3.5-5.1) Chloride Level 105 MEQ/L (98-107) Carbon Dioxide Level 32.2 MEQ/L (21.0-32.0) Anion Gap 9 MEQ/L (5-15) Blood Urea Nitrogen 32 MG/DL (7-18) Creatinine 0.68 MG/DL (0.60-1.30) Estimat Glomerular Filtration 123 ML/MIN Rate (>89) Random Glucose 128 MG/DL (74-106) Calcium Level 8.8 MG/DL (8.5-10.1) Phosphorus Level 3.7 MG/DL (2.5-4.9) Magnesium Level 2.9 MG/DL (1.5-2.5) Total Bilirubin 0.7 MG/DL (0.2-1.0) Aspartate Amino Transf 34 U/L (15-37) (AST/SGOT) Alanine Aminotransferase 155 U/L (12-78) (ALT/SGPT) Alkaline Phosphatase 74 U/L (45-117) Total Protein 6.6 GM/DL (6.4-8.2) Albumin 2.8 GM/DL (3.4-5.0) Result Diagram: 04/27/1630 04/27/1630 Microbiology Microbiology Date/Time Procedure Status Source Growth 04/25/16 10:00 Urine Culture - Final Complete Urine Catheterized Urine NO GROWTH IN 48 HOURS. 04/27/16 11:00 Gram Stain - Final Resulted Sputum Endotracheal 04/27/16 11:00 Sputum Culture Resulted Sputum Endotracheal Pending 04/27/16 11:23 Aerobic Blood Culture Received Blood Peripheral Pending 04/27/16 11:23 Anaerobic Blood Culture Received Blood Peripheral Pending 04/27/16 11:34 Aerobic Blood Culture Received Blood Peripheral Pending 04/27/16 11:34 Anaerobic Blood Culture Received Blood Peripheral Pending Imaging Last Impressions Chest X-Ray 04/27/16 0000 Signed Impressions: Service Date/Time: Wednesday, April 27, 2016 13:37 - CONCLUSION: 1. Under aerated. 2. Support apparatus in good position. Bear Barton MD FACR Abdomen X-Ray 03/31/16 0000 Signed Impressions: Service Date/Time: Thursday, March 31, 2016 09:58 - CONCLUSION: Benign abdomen. Rodrigo Martinez MD Chest CT 03/28/16 0836 Signed Impressions: Service Date/Time: Monday, March 28, 2016 09:57 - CONCLUSION: Development areas of air bronchograms and consolidation more prominent in the right and left posterior basilar segments of the lower lobes. ET tube above the chanelle. Bernard Hartman MD CT Angiography 03/24/16 1121 Signed Impressions: Service Date/Time: Thursday, March 24, 2016 12:47 - CONCLUSION: 1. There is respiratory motion artifact but no PE is identified through most of the segmental level pulmonary arteries. 2. Mildly enlarged main pulmonary artery may indicate pulmonary arterial hypertension. 3. 11 mm left lower lobe noncalcified pulmonary nodule. Suggest correlation with any prior imaging studies that could confirm longer-term stability. If none are available consider short-term followup noncontrast chest CT in approximately 3 months. Ubaldo Rodas MD Procedures 03/26intubated 03/26 left IJ central line 04/02right IJ central line . Assessment and Plan Disease Oriented Problem List: (1) Acute respiratory failure with hypoxia (2) Staphylococcus aureus pneumonia (3) Pulmonary edema (4) Hypoxia (5) JACOB (obstructive sleep apnea) (6) Pulmonary nodule, left (7) Obesity hypoventilation syndrome (8) Morbid obesity with BMI of 50.0-59.9, adult (9) Diabetes mellitus type 2 in obese Symptom Scale: (1) Anxiety (2) Dyspnea (3) Encephalopathy Pertinent Non-Medical Issues Psychosocial:Patient is , shares an apartment locally with his brother. Apparently has 2 other siblings as well as 2 adult children who live in the [place] area. Has designated his brother Farhat as healthcare surrogate. 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 Spiritual: Legal:Patient is not able to participate in decision-making due to clinical condition. Has completed designation naming his brother Farhat as [facility]. Ethical issues impacting care: Important Contacts brother Farhat Leger [phone] ([facility]) Brother Gagandeep Leger [phone] . Prognosis This patient was admitted for further evaluation of obesity hypoventilation syndrome; absolutely developed acute respiratory failure requiring mechanical ventilation. Has continued to require high levels of ventilator support, though other organ functions remain preserved. Possible he can recover from this however currently remains in critical condition, prognosis guarded. . Code Status: Full Code (per attending documentation ) Plan * FULL CODE - per patient's brother Farhat * DECISION-MAKING: Patiently currently unable to participate in goals / decision -making due to clinical condition. It is not clear if he will regain decision- making capacity. He has designated his brother Farhat as healthcare surrogate. * GOALS: 04/11/16: Farhat ([facility]) says he has spoken with the patient's two daughters in [place] and they want to continue aggressive care and FULL CODE status. He says he, the [facility], would lean toward de-escalation of care but he wants to honor the daughter's wishes for continued aggressive care. 04/16/16 --met with daughters as well as brother. Family seems to have overall good understanding. They remain cautiously optimistic. Goals remain aggressive. 04/27/16 -- other brother arrived, sharing that he himself had respiratory failure and a tracheostomy "and survived." * SYMPTOMS: --Dyspnea-emergently intubated, has remained on high ventilator settings as well as prone bed-- prone bed d/c. Currently breathing comfortably on mechanical vent, on sedatives. Mild tachypnea reported when lightened. (IV fentanyl, Versed ) --Anxiety-risk for related to prolonged intubation, hospitalization, underlying respiratory issues; currently appears comfortable on multiple sedatives (IV fentanyl, Versed) as becomes more alert/responsive will need ongoing assessments. --encephalopathy: Multifactorial, metabolic. Has been on sedatives 28 days, has been off of Nimbex for over a week now though was on that for many days. Minimally responsive to exam. * Palliative care will continue to follow during hospital course as condition evolves, to assist patient/decision-maker with understanding of medical conditions, weighing benefits/burdens of treatment options, for clarification of goals of treatment. Additionally will assist with any symptoms of palliative concern * Tentative plan for tracheostomy on Saturday04/30/16. . Time Spent Total Floor Time (mins): 29 Face to Face Time (mins): 15 >50% Counseling/Coord of Care: Yes (d/w/ Dr. Florentino and with RN) Attestation To help prompt me to consider important information that might be impacting today's encounter and assessment, information from prior notes written by myself or my colleagues may have been "brought forward" into today's note. My signature on this note, however, is an attestation that I personally performed the exam, history, and/or decision-making noted today, and, unless otherwise indicated, the interactions with patient, family, and staff as well as the review of records all occurred today. I also attest that the listed assessment and stated plan reflect my best clinical judgment today based on the combination of historical information, prior notes, and today's exam/ interactions. When time spent is documented, it refers only to time spent today by the signer, or if indicated, combined time spent today by collaborating physician/nurse practitioner. Jessica Leach MD Apr 27, 2016 16:19
[2016-04-27] MEDS: PANTOPRAZOLE SODIUM 40 MG VIAL IV PUSH SCH (16:46)
[2016-04-27] MEDS: fentaNYL 2,500 MCG/NS 250 ML IV SCH (16:46)
[2016-04-28] VITALS (18 sets, daily range): BP systolic 109–128; BP diastolic 65–76; PULSE 72–109; RESP 15–16; TEMP 98–99.8; O2SAT 91–94
[2016-04-28] MEDS: AZTREONAM INJ 2,000 MG in SODIUM CHLORIDE 0.9% INJ 100 ML IV SCH ×3 (00:32→17:11)
[2016-04-28] MEDS: ARTIFICIAL TEARS OPTH SOLN 15 ML BTL EACH EYE SCH ×6 (00:33→20:58)
[2016-04-28] MEDS: INSULIN NovoLIN REGULAR SUPPLEMENTAL SCALE SQ SCH ×3 (04:10→17:12)
[2016-04-28] MEDS: FREE WATER G-TUBE SCH ×3 (04:10→17:13)
[2016-04-28] MEDS: METOCLOPRAMIDE HCL 10 MG/2 ML VIAL IV PUSH SCH ×3 (04:10→20:53)
[2016-04-28] MEDS: ENOXAPARIN SODIUM 40 MG/0.4 ML SYRINGE SQ SCH ×2 (04:10→17:13)
[2016-04-28 06:09] LABS: BASOPHIL % 0.4 % (0.0-2.0); EOSINOPHIL # 0.3 TH/MM3 (0-0.4); EOSINOPHIL % 2.5 % (0.0-4.0); HEMATOCRIT 37.2 % (39.0-51.0); LYMPH % 17.4 % (9.0-44.0); LYMPHOCYTE # 2.1 TH/MM3 (1.0-4.8); MEAN CELL VOLUME 84.1 FL (80.0-100.0); MEAN CORPUSCULAR HGB CONC 32.1 % (32.0-36.0); MONO % 5.5 % (0.0-8.0); NEUT % 74.2 % (16.0-70.0); PLATELET COUNT 196 TH/MM3 (150-450); RED BLOOD COUNT 4.42 MIL/MM3 (4.50-5.90); RED CELL DISTRIBUTION WIDTH 15.6 % (11.6-17.2); WHITE BLOOD COUNT 12.1 TH/MM3 (4.0-11.0)
[2016-04-28 06:10] LABS: HEMO FLAGS AUTO DIFF
[2016-04-28 06:41] LABS: ANION GAP 10 MEQ/L (5-15); AST (GOT) 41 U/L (15-37); BICARBONATE 31.1 MEQ/L (21.0-32.0); BLOOD UREA NITROGEN 28 MG/DL (7-18); CHLORIDE 109 MEQ/L (98-107); GLOMERULAR FILTRATION RATE 132 ML/MIN (>89); MAGNESIUM 2.4 MG/DL (1.5-2.5); POTASSIUM 3.4 MEQ/L (3.5-5.1); SODIUM (NA) 150 MEQ/L (136-145)
[2016-04-28 06:44] LABS: ALKALINE PHOSPHATASE 76 U/L (45-117); ALT (GPT) 165 U/L (12-78); TOTAL BILIRUBIN ADULT 0.7 MG/DL (0.2-1.0)
[2016-04-28] MEDS: POTASSIUM CHLOR 20 MEQ PREMIX 100 ML IV PRN ×2 (06:59→10:27)
[2016-04-28] MEDS: LACTULOSE SYRUP 20 GM/30 ML CUP PO SCH (07:47)
[2016-04-28] MEDS: SENNOSIDES SYRUP 8.8 MG/5 ML CUP PO/TUBE SCH ×2 (07:48→20:52)
[2016-04-28] MEDS: DOCUSATE SODIUM 100 MG/10 ML UDC PO SCH ×2 (07:48→20:52)
[2016-04-28] MEDS: LACTOBACILLUS ACIDOPHILUS TAB PO SCH ×3 (07:49→17:12)
[2016-04-28] MEDS: INSULIN DETEMIR 100 UNITS/ML VIAL SQ SCH ×2 (07:49→20:54)
[2016-04-28] MEDS: POLYETHYLENE GLYCOL 17 GM PKG PO SCH ×2 (07:49→20:52)
[2016-04-28] MEDS: POTASSIUM CHLORIDE 25 MEQ EFFERVESCENT TAB PO SCH (07:49)
[2016-04-28] MEDS: FUROSEMIDE 20 MG/2 ML VIAL IV PUSH SCH (07:50)
[2016-04-28] MEDS: methylPREDNISolone SOD SUCC 40 MG/1 ML VIAL IV PUSH SCH (07:50)
[2016-04-28] MEDS: NYSTATIN 100,000 U/GM PWD 15 GM BTL TOPICAL SCH ×2 (07:51→20:58)
[2016-04-28] MEDS: BETAMETHASONE/CLOTRIMAZOLE CREAM 15 GM TOPICAL SCH ×2 (07:51→20:58)
[2016-04-28] MEDS: CHLORHEXIDINE 0.12% (ORAL KIT) 15 ML CUP MT SCH ×2 (07:51→20:58)
[2016-04-28] MEDS: ARTIFICIAL TEARS OPTH OINT 3.5 APPLIC/3.5 GM TUBO EACH EYE SCH ×2 (07:52→20:58)
[2016-04-28] MEDS: BENEPROTEIN POWDER 1 PACK G-TUBE SCH ×3 (07:54→17:13)
[2016-04-28] MEDS: SODIUM CHLORIDE 0.9% FLUSH 5 ML FLUSH IVF SCH (07:55)
--- NOTE | 2016-04-28 09:33 | HHI.IDPN ---
Subjective Subjective Remarks Notes reviewed. Temps better this morning Has a lot of secretions from ET, color is light green On the vent, FiO2 50%, PEEP down to 8 Last CXR with basilar atelectasis/infiltrates Line - PICC Good UO On fentanyl and versed is a 50 years old obese male with past medical history significant for undiagnosed sleep apnea, super morbid obesity, type 2 diabetes was brought to the emergency department on 03/24/16. ID following for MSSA pneumonia. Antibiotics Vancomycin IV Azactam Lines PICC 04/15 Past Medical History Reviewed Allergies: Coded Allergies: Penicillin (Verified Allergy, Severe, Swelling, 03/24/16) Tetanus Toxoid (Verified Allergy, Unknown, Swelling, 03/24/16) Objective . Vital Signs Date Time Temp Pulse Resp B/P Pulse Ox O2 Delivery O2 Flow Rate FiO2 04/28/16 07:57 93 50 04/28/16 06:00 77 04/28/16 04:10 92 50 04/28/16 04:00 86 04/28/16 04:00 99.3 84 15 127/74 91 04/28/16 04:00 50 04/28/16 02:00 98 04/28/16 01:17 93 50 04/28/16 00:00 98.3 90 15 128/72 94 04/28/16 00:00 50 04/28/16 00:00 89 04/27/16 22:00 91 04/27/16 22:00 93 50 04/27/16 20:00 106 04/27/16 20:00 50 04/27/16 20:00 101.1 106 15 132/80 94 04/27/16 19:25 93 50 04/27/16 18:00 122 04/27/16 16:06 93 50 04/27/16 16:00 99 04/27/16 16:00 99.2 98 15 112/71 98 04/27/16 16:00 50 04/27/16 14:00 117 04/27/16 12:00 50 04/27/16 12:00 101.3 125 15 111/72 92 04/27/16 12:00 125 04/27/16 10:00 108 04/27/16 04/27/16 04/28/16 15:00 23:00 07:00 Intake Total 1608 ml 777 ml 1439 ml Output Total 1350 ml 1400 ml 250 ml Balance 258 ml -623 ml 1189 ml IV Total 949 ml 236 ml 829 ml Tube Feeding 419 ml 291 ml 310 ml Other 240 ml 250 ml 300 ml Output Urine Total 1350 ml 1400 ml 250 ml # Bowel Movements 2 0 2 . Laboratory Tests Test 04/27/16 04/28/16 05:30 05:30 White Blood Count 13.6 TH/MM3 12.1 TH/MM3 Red Blood Count 4.46 MIL/MM3 4.42 MIL/MM3 Hemoglobin 11.9 GM/DL 11.9 GM/DL Hematocrit 37.5 % 37.2 % Mean Corpuscular Volume 84.0 FL 84.1 FL Mean Corpuscular Hemoglobin 26.7 PG 27.0 PG Mean Corpuscular Hemoglobin 31.8 % 32.1 % Concent Red Cell Distribution Width 15.9 % 15.6 % Platelet Count 196 TH/MM3 196 TH/MM3 Mean Platelet Volume 9.3 FL 8.9 FL Neutrophils (%) (Auto) 75.7 % 74.2 % Lymphocytes (%) (Auto) 15.6 % 17.4 % Monocytes (%) (Auto) 6.3 % 5.5 % Eosinophils (%) (Auto) 2.0 % 2.5 % Basophils (%) (Auto) 0.4 % 0.4 % Neutrophils # (Auto) 10.3 TH/MM3 9.0 TH/MM3 Lymphocytes # (Auto) 2.1 TH/MM3 2.1 TH/MM3 Monocytes # (Auto) 0.9 TH/MM3 0.7 TH/MM3 Eosinophils # (Auto) 0.3 TH/MM3 0.3 TH/MM3 Basophils # (Auto) 0.0 TH/MM3 0.0 TH/MM3 CBC Comment AUTO DIFF AUTO DIFF Differential Total Cells 100 Counted Neutrophils % (Manual) 78 % Band Neutrophils % 1 % Lymphocytes % 11 % Monocytes % 5 % Eosinophils % 1 % Neutrophils # (Manual) 11.3 TH/MM3 Myelocytes 4 % Differential Comment FINAL DIFF MANUAL Platelet Estimate NORMAL Platelet Morphology Comment NORMAL Red Cell Morphology Comment NORMAL Laboratory Tests Test 04/27/16 04/28/16 05:30 05:30 Sodium Level 146 MEQ/L 150 MEQ/L Potassium Level 3.7 MEQ/L 3.4 MEQ/L Chloride Level 105 MEQ/L 109 MEQ/L Carbon Dioxide Level 32.2 MEQ/L 31.1 MEQ/L Anion Gap 9 MEQ/L 10 MEQ/L Blood Urea Nitrogen 32 MG/DL 28 MG/DL Creatinine 0.68 MG/DL 0.64 MG/DL Estimat Glomerular Filtration 123 ML/MIN 132 ML/MIN Rate Random Glucose 128 MG/DL 145 MG/DL Calcium Level 8.8 MG/DL 8.8 MG/DL Phosphorus Level 3.7 MG/DL 3.9 MG/DL Magnesium Level 2.9 MG/DL 2.4 MG/DL Total Bilirubin 0.7 MG/DL 0.7 MG/DL Aspartate Amino Transf 34 U/L 41 U/L (AST/SGOT) Alanine Aminotransferase 155 U/L 165 U/L (ALT/SGPT) Alkaline Phosphatase 74 U/L 76 U/L Total Protein 6.6 GM/DL 6.8 GM/DL Albumin 2.8 GM/DL 2.8 GM/DL Lactic Acid Level 2.2 mmol/L Microbiology Date/Time Procedure Status Source Growth 04/25/16 10:00 Urine Culture - Final Complete Urine Catheterized Urine NO GROWTH IN 48 HOURS. 04/27/16 11:00 Gram Stain - Final Resulted Sputum Endotracheal 04/27/16 11:00 Sputum Culture Resulted Sputum Endotracheal Pending 04/27/16 11:23 Aerobic Blood Culture Received Blood Peripheral Pending 04/27/16 11:23 Anaerobic Blood Culture Received Blood Peripheral Pending 04/27/16 11:34 Aerobic Blood Culture Received Blood Peripheral Pending 04/27/16 11:34 Anaerobic Blood Culture Received Blood Peripheral Pending Imaging Chest X-Ray 04/27/16 0000 Signed Impressions: Service Date/Time: Wednesday, April 27, 2016 13:37 - CONCLUSION: 1. Under aerated. 2. Support apparatus in good position. Bear Barton MD FACR Chest X-Ray 04/25/16 0000 Signed Impressions: Service Date/Time: Monday, April 25, 2016 13:33 - CONCLUSION: Stable chest Bernard Hartman MD Chest X-Ray 04/23/16 0600 Signed Impressions: Service Date/Time: Saturday, April 23, 2016 03:46 - CONCLUSION: Bilateral areas of consolidation or atelectasis being worse on the left. Ubaldo Coombs MD Abdomen X-Ray 03/31/16 0000 Signed Impressions: Service Date/Time: Thursday, March 31, 2016 09:58 - CONCLUSION: Benign abdomen. Rodrigo Martinez MD Chest CT 03/28/16 0836 Signed Impressions: Service Date/Time: Monday, March 28, 2016 09:57 - CONCLUSION: Development areas of air bronchograms and consolidation more prominent in the right and left posterior basilar segments of the lower lobes. ET tube above the chanelle. Bernard Hartman MD CT Angiography 03/24/16 1121 Signed Impressions: Service Date/Time: Thursday, March 24, 2016 12:47 - CONCLUSION: 1. There is respiratory motion artifact but no PE is identified through most of the segmental level pulmonary arteries. 2. Mildly enlarged main pulmonary artery may indicate pulmonary arterial hypertension. 3. 11 mm left lower lobe noncalcified pulmonary nodule. Suggest correlation with any prior imaging studies that could confirm longer-term stability. If none are available consider short-term followup noncontrast chest CT in approximately 3 months. Ubaldo Rodas MD Chest X-Ray 04/19/16 0000 Signed Impressions: Service Date/Time: April 03:20 - CONCLUSION: 1. Cardiomegaly and findings of congestive heart failure. There has been no significant change when compared to the prior exam. Kyaw Rojo MD Chest X-Ray 04/18/16 0000 Signed Impressions: Service Date/Time: Monday, April 18, 2016 09:59 - CONCLUSION: 1. Support equipment in good position. 2. Small left basilar effusion and consolidative changes in the left lower lobe and perihilar region on the right. Dc Barton MD Chest X-Ray 04/16/16 0600 Signed Impressions: Service Date/Time: Saturday, April 16, 2016 03:58 - CONCLUSION: 1. Cardiomegaly. Bilateral lower lobe atelectasis versus pneumonia. There has been no significant change when compared to the prior exam. Kyaw Rojo MD Abdomen X-Ray 03/31/16 0000 Signed Impressions: Service Date/Time: Thursday, March 31, 2016 09:58 - CONCLUSION: Benign abdomen. Rodrigo Martinez MD Chest CT 03/28/16 0836 Signed Impressions: Service Date/Time: Monday, March 28, 2016 09:57 - CONCLUSION: Development areas of air bronchograms and consolidation more prominent in the right and left posterior basilar segments of the lower lobes. ET tube above the chanelle. Bernard Hartman MD CT Angiography 03/24/16 1121 Signed Impressions: Service Date/Time: Thursday, March 24, 2016 12:47 - CONCLUSION: 1. There is respiratory motion artifact but no PE is identified through most of the segmental level pulmonary arteries. 2. Mildly enlarged main pulmonary artery may indicate pulmonary arterial hypertension. 3. 11 mm left lower lobe noncalcified pulmonary nodule. Suggest correlation with any prior imaging studies that could confirm longer-term stability. If none are available consider short-term followup noncontrast chest CT in approximately 3 months. Ubaldo Rodas MD Chest X-Ray 04/12/16 0600 Signed Impressions: Service Date/Time: April 04:14 - CONCLUSION: Worsening appearance of the chest. Henrry Andrea MD Chest X-Ray 04/11/16 0000 Signed Impressions: Service Date/Time: Monday, April 11, 2016 04:09 - CONCLUSION: No significant change has occurred. Henrry Andrea MD Chest X-Ray 04/09/16 09 Signed Impressions: Service Date/Time: Saturday, April 09, 2016 09:12 - CONCLUSION: 1. Diffuse alveolar consolidation of the left lung and right upper lung field consistent with pneumonia and/or asymmetric pulmonary edema. Clinical correlation is recommended. 2. Endotracheal tube has its tip 1 cm above the chanelle. This could be pulled back 2 cm for more optimal position. Farhat Montes MD Chest X-Ray 04/05/16 06 Signed Impressions: Service Date/Time: April 03:25 - CONCLUSION: 1. Improved basilar consolidation. Residual versus developing right midlung consolidation. 2. Small bilateral pleural effusions are suspected. 3. No change cardiomegaly or lines/tubes. Ubaldo Ortiz MD Chest X-Ray 04/04/16599 Signed Impressions: Service Date/Time: Monday, April 04, 2016 04:44 - CONCLUSION: Worsening bilateral airspace opacities, especially left perihilar. Ubaldo Ortiz MD Chest X-Ray 04/04/16 06 Signed Impressions: Service Date/Time: Monday, April 04, 2016 04:44 - CONCLUSION: Worsening bilateral airspace opacities, especially left perihilar. Ubaldo Ortiz MD Chest X-Ray 04/03/16 0600 Signed Impressions: Service Date/Time: Sunday, April 03, 2016 00:16 - CONCLUSION: Potential developing pneumonia in the right upper lobe. Bibasilar atelectasis modestly worse in the interim. Ubaldo Ortiz MD Chest X-Ray 04/03/16 06 Signed Impressions: Service Date/Time: Sunday, April 03, 2016 00:16 - CONCLUSION: Potential developing pneumonia in the right upper lobe. Bibasilar atelectasis modestly worse in the interim. Ubaldo Ortiz MD Chest X-Ray 04/02/16 0925 Signed Impressions: Service Date/Time: Saturday, April 02, 2016 09:22 - CONCLUSION: Place a right jugular catheter terminates superior vena cava with no pneumothorax. Bernard Hartman MD Physical Exam GENERAL: Morbidly obese, on sedation, but awake, on the vent, NAD. Following simple commands SKIN: Warm and dry. No generalized rash HEENT: No icterus, ET in place. Moist mucosa CHEST: Coarse BS bilaterally, decreased at bases CARDIAC: regular, no murmur ABDOMEN: soft, obese, (+) BS : Becker in place, urine looks clear MUSCULOSKELETAL: Extremities without clubbing, cyanosis. No edema NEUROLOGICAL: Awake and following commands PSYCH: Unable to assess LINE: No evidence of infection Assessment & Plan Remarks IMPRESSION Leukocytosis, persistent, better today - has been on adequate Abx for pathogens isolated Pneumonia, C/S MSSA - Last CXR stable - S/P RX JACOB Respiratory failure, improving O2 requirement - has extensive infiltrates Morbid obesity Allergy to PCN, swelling Fevers, recurrent - has (+) BC, Staph epi one out 2 BC, has new line PICC - ?new VAP, has MSSA again RECOMMENDATION Follow new C/S Monitor temps Follow CBC Continue IV vancomycin. Continue Azactam Monitor progress Elisha Painter MD Apr 28, 2016 09:33
[2016-04-28] MEDS ORDERED: PHARMACY ORDERED LAB XX ONE (10:45)
--- NOTE | 2016-04-28 11:18 | HHI.CCPN ---
Subjective Remarks/Hospital Course Patient is a 50 years old obese male with past medical history significant for undiagnosed sleep apnea, super morbid obesity, type 2 diabetes was brought to the emergency department on 03/24/16 after feeling light headed and dizzy. On presentation here was found to be hypoxemic and ABG showed severe hypoxemia and hypercarbia. For a recent driving physical he was diagnosed with low oxygen saturations. Patient's oxygen saturation the ED was in the low 80s, which was confirmed on ABG with a oxygen saturation of 78% and PO2 of 46. CTA negative for PE. Patient was initiated on BiPAP therapy with consult to pulmonary Dr. Crane. His oxygenation improved but he continued to be hypercapnic. Today a.m. on nasal cannula his pH was 7.26 and PCO2 was increased at 99, patient was somnolent was placed back on BiPAP and repeat ABG at noon showed pH 7.26 PCO2 98 and pO2 70. This was on 16 BiPAP with FiO2 50%. Critical care was consulted. On my evaluation patient is somnolent but wakes up easily. I reduced the PEEP on BiPAP from 12-7 to facilitate better ventilation. A repeat ANG showed only minimal improvement, so decision made to intubate patient. Glidescope with #4 blade was used. Only propofol was used for induction. Initially I had a Grade 1-2 view, but I was unable to pass tube through the vocal cord to trachea in two attempts. Tube slipped out of Laryngeal opening both times. Dr Garrett intubated patient after NM paralysis with succinylcholine. Post intubation ABG showed improvement in hypercapnia and oxygenation. 03/27/16: Patient remains intubated heavily sedated with propofol and fentanyl. Remained severely hypoxemic on 100% FiO2, PEEP12, chest x-ray shows bibasilar infiltrates. Flagyl added. We'll give 1 dose of vancomycin-Adjust antibiotics according to cultures. Patient super morbid obesity may prevent Prone therapy 03/28: Remains hypoxic but ABG shows marginal improvement in oxygenation. WBC increasing 20.1 today. Start vancomycin scheduled. 03/29: Oxygenation is slightly improved. FiO2 reduced to 50% today. Chest x- ray remains unchanged. On sedation hold patient does wake up and follow commands. WBC count remains at 20 03/30 No acute events overnight. Sedated with Diprivan and Fentanyl. Had T: 100.1 at 4 am. WBC trending down 15.9 today from 20. 03/31 Patient remains sedated with Diprivan, Fentanyl and intubated. Tmax 100.1. Patient required increase O2 overnight now on ACV with PEEP: 12 and FIO2 70%. 04/01: Tmax 99.7. No bowel movement since admission. Patient has bowel sounds. Arousable on the ventilator. We'll attempt prone the patient paralyzed to increase oxygenation status. 04/02: MAXIMUM TEMPERATURE 100.9. Currently 97.7. 5 10 cc stools overnight. Placed on Roto prone yesterday. Saturations currently 94% on Flolan. Diuresed overnight. Creatinine still within normal limits. 04/03: Tmax 101. Currently 99.1. Positive BM. Did not tolerate not being unprone this AM. Saturations much improved prone. Tolerating tube feeding. 04/04: Tmax 100.8. Currently 98.8. +2 L past 24 hours. Attempt to on prone today. Positive BM. C. difficile negative. Remains paralyzed. 04/05: Remains sedated, orally intubated on neuromuscular blockade on mechanical ventilation. Remains on Rota prone bed. On insulin drip. 04/06: Remains sedated, orally intubated on neuromuscular blockade, on mechanical ventilation. Remains on Rota prone bed. Insulin drip continues. 04/07 Patient remains on Rotoprone bed sedated with Diprivan, Versed, Fentanyl in addition patient is on Nimbex. Afebrile. On Insulin drip 5u/hr. 04/08 Patient remains sedated and intubated and on Nimbex. Off insulin drip. On PRVC/AC with RR 15, TV 550, IT: 1.65, PEEP: 15 and FIO2 100%. T: 100.2 at 4 am. 04/09 Patient is sedated, intubated and remains on neuromuscular blockade. Vent setting unchanged. afebrile. 04/10 Patient remains sedated and intubated and on Nimbex. On PRVC/AC, RR 15, TV 500, PEEP: 15, FIO2 90%, IT:1.65, on Flolan drip. Remains on Rotoprone bed. 04/11 minimal improvement in oxygenation, FiO2 now at 75 - continue to improve oxygenation, worsening CXR 04/13/10 continue to improve oxygenation DC'd prone position last night 04/14- improving oxygenation, Nimbex discontinued as well as prone position 04/16 Patient is sedated with Versed and Fentanyl and intubated. Off rotoprone bed. On PRVC/AC RR 15, TV 550, IT 1.65, PEEP:15, FIO2 50%. 04/17 Patient remains sedated with Versed and Fentanyl. Afebrile, tolerating tube feeds 04/18 No acute events overnight Sedated and intubated. Afebrile. On PRVC/AC RR 15 , TV 550, IT 1.65, PEEP:15, FIO2 60% 04/19: Spiking fever up to 101, pancultured and 1 dose of vancomycin given by ID. On weaning doses of Flolan. FiO2 down to 50% I have reduced PEEP to 14. Remains critically ill 04/20: No fever. Sputum cx with Staph -S pending. Fio2 50% PEEP remains at 14. TV increased to 650 to improve lung recruitment. On weaning dose of Flolan-DC after current bag 04/21:Afebrile. Hyponatremia resolving, the patient will be placed on free water flushes. 04/22:The patient had an episode of acute desaturation requiring FiO2 increased to 90%. Stat chest x-ray stat ABG aggressive pulmonary toileting and suctioning , resolution of symptoms FiO2 now 55%. ABGs within normal limits. 04/23: Tmax 99.5. Currently afebrile. O2 sat 50%. PEEP down to 13. One small bowel movement overnight. 04/24: Currently afebrile. O2 sat 45%. PEEP to 12. One BM. Tolerating tube feeds. 04/25: Afebrile. PEEP down to 11. Positive BM. Tolerating tube feeds. Awake on the ventilator with eyes open. 04/26: Afebrile. PEEP down to 10. Time to feeding. Awake and alert eyes open. 04/27: Suspected fever overnight. One bowel movement documented. Will decreased PEEP to 9. Awake and alert and follows commands. Subjective 04/28: Tmax 99.3. Currently afebrile. FiO2 increased to 70%. PEEP to 10. Awake and does follow commands. Positive BM 4 yesterday. Objective Vital Signs Date Time Temp Pulse Resp B/P Pulse Ox O2 Delivery O2 Flow Rate FiO2 04/28/16 11:09 93 70 04/28/16 10:00 72 04/28/16 08:00 98.0 15 109/65 Intake and Output 04/27/16 04/27/16 04/28/16 08:00 16:00 00:00 Intake Total 1218 ml 1608 ml 777 ml Output Total 350 ml 1350 ml 1400 ml Balance 868 ml 258 ml -623 ml Result Diagram: 04/28/16 0530 04/28/16 0530 Other Results Microbiology Date/Time Procedure Status Source Growth 04/27/16 11:34 Aerobic Blood Culture - Preliminary Resulted Blood Peripheral NO GROWTH IN 1 DAY 04/27/16 11:34 Anaerobic Blood Culture - Preliminary Resulted Blood Peripheral NO GROWTH IN 1 DAY 04/27/16 11:00 Gram Stain - Final Resulted Sputum Endotracheal 04/27/16 11:00 Sputum Culture Resulted Sputum Endotracheal Pending 04/25/16 10:00 Urine Culture - Final Complete Urine Catheterized Urine NO GROWTH IN 48 HOURS. Imaging Last Impressions Chest X-Ray 04/27/16 0000 Signed Impressions: Service Date/Time: Wednesday, April 27, 2016 13:37 - CONCLUSION: 1. Under aerated. 2. Support apparatus in good position. Bear Barton MD FACR Abdomen X-Ray 03/31/16 0000 Signed Impressions: Service Date/Time: Thursday, March 31, 2016 09:58 - CONCLUSION: Benign abdomen. Rodrigo Martinez MD Chest CT 03/28/16 0836 Signed Impressions: Service Date/Time: Monday, March 28, 2016 09:57 - CONCLUSION: Development areas of air bronchograms and consolidation more prominent in the right and left posterior basilar segments of the lower lobes. ET tube above the chanelle. Bernard Hartman MD CT Angiography 03/24/16 1121 Signed Impressions: Service Date/Time: Thursday, March 24, 2016 12:47 - CONCLUSION: 1. There is respiratory motion artifact but no PE is identified through most of the segmental level pulmonary arteries. 2. Mildly enlarged main pulmonary artery may indicate pulmonary arterial hypertension. 3. 11 mm left lower lobe noncalcified pulmonary nodule. Suggest correlation with any prior imaging studies that could confirm longer-term stability. If none are available consider short-term followup noncontrast chest CT in approximately 3 months. Ubaldo Rodas MD Objective Remarks GENERAL: 50-year-old male, critically ill. Orally intubated on mechanical ventilation, on sedation SKIN: Seborrheic dermatitis of the face HEAD: Atraumatic. Normocephalic. EYES: Pupils equal round and slightly reactive about 3 millimeters bilaterally. ENT: NG tube in place. Orotracheally intubated NECK: Very large neck. Trachea midline. CARDIOVASCULAR: Distant heart sounds. RRR. S1, S2. No S4. Without murmur RESPIRATORY: Orally intubated on mechanical ventilation, Breath sounds equal bilaterally. Diminished breath sounds due to body habitus. GASTROINTESTINAL: Abdomen soft, obese, nontender. Severe central obesity MUSCULOSKELETAL: Extremities with trace to 1+ nonpitting bilateral lower extremity edema. Left antecubital PICC line is clean dry and intact NEUROLOGICAL: Arousable on the ventilator. Follows commands. Wiggles toes. Squeezes hands Date of Insertion: Apr 02, 2016 Line: PICC Side: Left Location: Antecubital A/P Assessment and Plan Neuro/Psych: Likely SERENITY Toxic metabolic encephalopathy Currently On Fentanyl drip at 150 mcg an hour and Versed infusion 5 mg an hour for sedation and analgesia while intubated Start oxycodone 5 every 6 and attempt to wean down analgesic sedation Goal of RASS -2 Daily sedation vacation when appropriate PEEP< 8, FIO2.50 Acetaminophen for fever Pulm: Acute hypoxemic respiratory failure JACOB [facility] History of staph aureus pneumonia/HCAP ARDS On PRVC/AC RR 15, TV 650, IT:1.65, PEEP:10, FIO2 70% Continue with vent support keep sat >92%. Bronchodilators every 6 hours and every 2 hours as needed ICU vent bundle. Will need trach once oxygen requirements, PEEP improved. Flolan off since 04/21 on Solumedrol 40mg daily Advanced ET tube 04/24 from 19-22 cm CV: Monitor HR and BP keep MAP>65mmHg 2-D echo 03/26 EF 60%. No regional wall motion abnormality. Mild MR/TR. /FEN: Hypokalemia Hypernatremia Monitor renal function, I/O's, electrolytes replacement per protocol. On Lasix 20mg Q12. To be held. We'll give quarter normal saline 1 L. Recheck sodium in a.m. GI: Constipation Moderate protein calorie malnutrition On Glucerna 1.5@45ml/hr with 1 scoop whey protein 3 times a day, Protonix 40mg daily On Reglan 10mg Q8, Senna and Colace twice a day.. Continue MiraLAX twice a day and lactulose 4 times a day. ID: Staph aureus pneumonia Possible staph bacteremia Pertinent culture Sputum/blood cultures 2 negative 04/27 04/25 - urine -no growth 04/19 - blood cultures 2 out of 4 - staph aureus 04/19 - sputum - staph aureus 04/08 - sputum - staph aureus 04/03 - sputum - staph aureus 03/30 - sputum- -staph aureus 03/27 - sputum - staph aureus 03/26 - blood - staph hominis On vancomycin 2 g IV every 12 are since 04/19. Start Azactam 04/27. Per infectious disease Heme: Leukocytosis Monitor CBC/coags Endo: Diabetes mellitus SSI for glycemic control (high scale) 15 units sliding scale insulin scale insulin in the past 24 hours, Levemir insulin 70 U Q12 MSK Morbid obesity Weight loss encouraged DVT, GI prophylaxis -Bilateral lower extremity SCDs. IV Protonix 40 mg daily. Lovenox 40 mg sq BID LINES: -Left upper extremity PICC line placed 04/15 Critical Care: The total care time was 35 minutes. Time to perform other separately billable procedures was not included in the critical care time. Codey Florentino MD Apr 28, 2016 11:18
[2016-04-28] MEDS: VANCOMYCIN INJ 1,500 MG in SODIUM CHLORID 0.9% 500 ML INJ 500 ML IV SCH (11:59)
[2016-04-28] MEDS: RESP: ALBUTEROL 2.5 MG/IPRATROPIUM 0.5 MG NEB (SCH) NEB ×4 (12:19→23:17)
[2016-04-28] MEDS ORDERED: SODIUM CHLORIDE 23.4% INJ 38.5 MEQ in WATER STERILE FOR INJ 1,000 ML IV SCH (13:00)
[2016-04-28 15:09] LABS: PLATELET ESTIMATE SMEAR NORMAL (NORMAL); PLATELET MORPHOLOGY NORMAL (NORMAL); SCAN/DIFF AUTO DIFF CONFIRMED
[2016-04-28] MEDS: PANTOPRAZOLE SODIUM 40 MG VIAL IV PUSH SCH (17:12)
--- NOTE | 2016-04-28 19:21 | HHI.PR ---
Subjective Remarks ON THE VENT SEDATED FIO2 AT 80% Objective Vital Signs Date Time Temp Pulse Resp B/P Pulse Ox O2 Delivery O2 Flow Rate FiO2 04/28/16 18:00 108 04/28/16 16:01 93 60 04/28/16 16:00 106 04/28/16 16:00 99.1 106 16 125/71 92 04/28/16 16:00 60 04/28/16 14:00 108 04/28/16 12:00 60 04/28/16 12:00 109 04/28/16 12:00 99.5 99 15 126/73 92 04/28/16 11:09 93 70 04/28/16 10:00 72 04/28/16 08:00 50 04/28/16 08:00 72 04/28/16 08:00 98.0 72 15 109/65 91 04/28/16 07:57 93 50 04/28/16 06:00 77 04/28/16 04:10 92 50 04/28/16 04:00 86 04/28/16 04:00 99.3 84 15 127/74 91 04/28/16 04:00 50 04/28/16 02:00 98 04/28/16 01:17 93 50 04/28/16 00:00 98.3 90 15 128/72 94 04/28/16 00:00 50 04/28/16 00:00 89 04/27/16 22:00 91 04/27/16 22:00 93 50 04/27/16 20:00 106 04/27/16 20:00 50 04/27/16 20:00 101.1 106 15 132/80 94 04/27/16 19:25 93 50 I/O 04/27/16 04/27/16 04/27/16 04/28/16 04/28/16 04/28/16 07:00 15:00 23:00 07:00 15:00 23:00 Intake Total 1218 ml 1608 ml 777 ml 1439 ml 1618 ml Output Total 350 ml 1350 ml 1400 ml 250 ml 1650 ml Balance 868 ml 258 ml -623 ml 1189 ml -32 ml IV Total 643 ml 949 ml 236 ml 829 ml 1006 ml Tube Feeding 275 ml 419 ml 291 ml 310 ml 362 ml Other 300 ml 240 ml 250 ml 300 ml 250 ml Output Urine Total 350 ml 1350 ml 1400 ml 250 ml 1650 ml # Bowel Movements 0 2 0 2 0 Result Diagram: 04/28/1652904/28/16529 Objective Remarks GENERAL: SKIN: Warm and dry. HEAD: Atraumatic. Normocephalic. EYES: Pupils equal and round. No scleral icterus. No injection or drainage. ENT: No nasal bleeding or discharge. Mucous membranes pink and moist. NECK: Trachea midline. No JVD. CARDIOVASCULAR: Regular rate and rhythm. RESPIRATORY: No accessory muscle use. Clear to auscultation. Breath sounds equal bilaterally. GASTROINTESTINAL: Abdomen soft, non-tender, nondistended. Hepatic and splenic margins not palpable. MUSCULOSKELETAL: Extremities without clubbing, cyanosis, or edema. No obvious deformities. NEUROLOGICAL: Awake and alert. No obvious cranial nerve deficits. Motor grossly within normal limits. Five out of 5 muscle strength in the arms and legs. Normal speech. PSYCHIATRIC: Appropriate mood and affect; insight and judgment normal. Assessment and Plan Assessment and Plan RESPIRATORY FAILURE SEPSIS ARDS JACOB/CSA PLAN VENT SUPPORT FIO2 0.5 PULM TOILET WEAN TOLERATED. CHECK ABG , CXRAY FOR TRACHEOSTOMY Orlando Perry MD Apr 28, 2016 19:21
[2016-04-28] MEDS: MIDAZOLAM 100 MG/ML INJ 100 ML IV SCH (20:54)
[2016-04-28] MEDS ORDERED: VANCOMYCIN INJ 1,250 MG in SODIUM CHLOR 0.9% 250 ML INJ 250 ML IV SCH (23:00)
[2016-04-28] MEDS: RESP: SODIUM CHLORIDE 3% 4 ML NEB NEB SCH (23:17)
[2016-04-29] VITALS (17 sets, daily range): BP systolic 97–130; BP diastolic 59–78; PULSE 75–108; RESP 16–20; TEMP 98.2–99; O2SAT 92–94
[2016-04-29] MEDS: AZTREONAM INJ 2,000 MG in SODIUM CHLORIDE 0.9% INJ 100 ML IV SCH ×2 (02:39→10:00)
[2016-04-29] MEDS: ARTIFICIAL TEARS OPTH SOLN 15 ML BTL EACH EYE SCH ×6 (02:40→21:15)
[2016-04-29] MEDS: RESP: ALBUTEROL 2.5 MG/IPRATROPIUM 0.5 MG NEB (SCH) NEB ×6 (03:33→23:37)
[2016-04-29 05:07] LABS: AUTOMATED NEUTROPHIL # 10.2 TH/MM3 (1.8-7.7); BASOPHIL # 0.1 TH/MM3 (0-0.2); BASOPHIL % 0.4 % (0.0-2.0); EOSINOPHIL # 0.2 TH/MM3 (0-0.4); EOSINOPHIL % 1.6 % (0.0-4.0); LYMPH % 16.4 % (9.0-44.0); LYMPHOCYTE # 2.2 TH/MM3 (1.0-4.8); MEAN CELL VOLUME 83.1 FL (80.0-100.0); MEAN CORPUSCULAR HEMOGLOBIN 27.1 PG (27.0-34.0); MEAN CORPUSCULAR HGB CONC 32.6 % (32.0-36.0); MONO % 4.7 % (0.0-8.0); NEUT % 76.9 % (16.0-70.0); PLATELET COUNT 203 TH/MM3 (150-450); RED BLOOD COUNT 4.33 MIL/MM3 (4.50-5.90); RED CELL DISTRIBUTION WIDTH 15.9 % (11.6-17.2); WHITE BLOOD COUNT 13.3 TH/MM3 (4.0-11.0)
[2016-04-29 05:08] LABS: HEMO FLAGS AUTO DIFF
[2016-04-29 05:09] LABS: BICARBONATE 28.6 MEQ/L (21.0-32.0); POTASSIUM 3.5 MEQ/L (3.5-5.1)
[2016-04-29] MEDS: FREE WATER G-TUBE SCH ×4 (06:00→18:00)
[2016-04-29] MEDS: INSULIN NovoLIN REGULAR SUPPLEMENTAL SCALE SQ SCH ×4 (06:00→18:06)
[2016-04-29] MEDS: ENOXAPARIN SODIUM 40 MG/0.4 ML SYRINGE SQ SCH ×2 (06:05→18:05)
[2016-04-29] MEDS: METOCLOPRAMIDE HCL 10 MG/2 ML VIAL IV PUSH SCH ×3 (06:06→21:15)
[2016-04-29 06:36] LABS: SCAN/DIFF AUTO DIFF CONFIRMED
[2016-04-29] MEDS: RESP: SODIUM CHLORIDE 3% 4 ML NEB NEB SCH ×2 (07:50→23:37)
[2016-04-29] MEDS: CHLORHEXIDINE 0.12% (ORAL KIT) 15 ML CUP MT SCH ×2 (08:21→20:57)
[2016-04-29] MEDS: BENEPROTEIN POWDER 1 PACK G-TUBE SCH ×3 (08:21→18:00)
[2016-04-29] MEDS: ARTIFICIAL TEARS OPTH OINT 3.5 APPLIC/3.5 GM TUBO EACH EYE SCH ×2 (08:21→20:57)
[2016-04-29] MEDS: methylPREDNISolone SOD SUCC 40 MG/1 ML VIAL IV PUSH SCH (08:23)
[2016-04-29] MEDS: DOCUSATE SODIUM 100 MG/10 ML UDC PO SCH ×2 (08:24→20:55)
[2016-04-29] MEDS: SODIUM CHLORIDE 0.9% FLUSH 5 ML FLUSH IVF SCH (08:24)
[2016-04-29] MEDS: NYSTATIN 100,000 U/GM PWD 15 GM BTL TOPICAL SCH ×2 (08:25→20:57)
[2016-04-29] MEDS: BETAMETHASONE/CLOTRIMAZOLE CREAM 15 GM TOPICAL SCH ×2 (08:25→20:57)
[2016-04-29] MEDS: LACTOBACILLUS ACIDOPHILUS TAB PO SCH ×3 (08:25→18:05)
[2016-04-29] MEDS: SENNOSIDES SYRUP 8.8 MG/5 ML CUP PO/TUBE SCH ×2 (08:26→20:55)
[2016-04-29] MEDS: POLYETHYLENE GLYCOL 17 GM PKG PO SCH ×2 (08:26→20:55)
[2016-04-29] MEDS: INSULIN DETEMIR 100 UNITS/ML VIAL SQ SCH ×2 (08:26→20:56)
[2016-04-29] MEDS: MIDAZOLAM 100 MG/ML INJ 100 ML IV SCH ×2 (09:17→21:29)
--- NOTE | 2016-04-29 10:32 | HHI.IDPN ---
Subjective Subjective Remarks Notes reviewed. Temps ok Had problems increased O2 requirement yesterday Went up to 70%, currently down to 55% this morning, PEEP up to 10 again Last CXR with basilar atelectasis/infiltrates Sputum with MSSA again Line - PICC Good UO On fentanyl and versed is a 50 years old obese male with past medical history significant for undiagnosed sleep apnea, super morbid obesity, type 2 diabetes was brought to the emergency department on 03/24/16. ID following for MSSA pneumonia. Antibiotics Vancomycin IV Azactam Lines PICC 04/15 Past Medical History Reviewed Allergies: Coded Allergies: Penicillin (Verified Allergy, Severe, Swelling, 03/24/16) Tetanus Toxoid (Verified Allergy, Unknown, Swelling, 03/24/16) Objective . Vital Signs Date Time Temp Pulse Resp B/P Pulse Ox O2 Delivery O2 Flow Rate FiO2 04/29/16 08:00 60 04/29/16 08:00 98.4 80 16 102/59 93 04/29/16 08:00 108 04/29/16 07:57 94 55 04/29/16 06:00 90 04/29/16 04:10 94 60 04/29/16 04:00 98.9 97 16 130/78 94 04/29/16 04:00 60 04/29/16 04:00 97 04/29/16 02:00 75 04/29/16 01:15 93 60 04/29/16 00:00 80 04/29/16 00:00 99.0 80 16 105/68 93 04/29/16 00:00 60 04/28/16 22:20 92 60 04/28/16 22:00 86 04/28/16 20:00 97 04/28/16 20:00 93 60 04/28/16 20:00 99.8 97 16 118/76 91 04/28/16 20:00 60 04/28/16 18:00 108 04/28/16 16:01 93 60 04/28/16 16:00 106 04/28/16 16:00 99.1 106 16 125/71 92 04/28/16 16:00 60 04/28/16 14:00 108 04/28/16 12:00 60 04/28/16 12:00 109 04/28/16 12:00 99.5 99 15 126/73 92 04/28/16 11:09 93 70 04/28/16 04/28/16 04/29/16 15:00 23:00 07:00 Intake Total 1618 ml 936 ml 1394 ml Output Total 1650 ml 650 ml 300 ml Balance -32 ml 286 ml 1094 ml IV Total 1006 ml 569 ml 870 ml Tube Feeding 362 ml 367 ml 324 ml Other 250 ml 200 ml Output Urine Total 1650 ml 650 ml 300 ml # Bowel Movements 0 0 1 . Laboratory Tests Test 04/28/16 04/29/16 05:30 03:30 White Blood Count 12.1 TH/MM3 13.3 TH/MM3 Red Blood Count 4.42 MIL/MM3 4.33 MIL/MM3 Hemoglobin 11.9 GM/DL 11.7 GM/DL Hematocrit 37.2 % 36.0 % Mean Corpuscular Volume 84.1 FL 83.1 FL Mean Corpuscular Hemoglobin 27.0 PG 27.1 PG Mean Corpuscular Hemoglobin 32.1 % 32.6 % Concent Red Cell Distribution Width 15.6 % 15.9 % Platelet Count 196 TH/MM3 203 TH/MM3 Mean Platelet Volume 8.9 FL 9.4 FL Neutrophils (%) (Auto) 74.2 % 76.9 % Lymphocytes (%) (Auto) 17.4 % 16.4 % Monocytes (%) (Auto) 5.5 % 4.7 % Eosinophils (%) (Auto) 2.5 % 1.6 % Basophils (%) (Auto) 0.4 % 0.4 % Neutrophils # (Auto) 9.0 TH/MM3 10.2 TH/MM3 Lymphocytes # (Auto) 2.1 TH/MM3 2.2 TH/MM3 Monocytes # (Auto) 0.7 TH/MM3 0.6 TH/MM3 Eosinophils # (Auto) 0.3 TH/MM3 0.2 TH/MM3 Basophils # (Auto) 0.0 TH/MM3 0.1 TH/MM3 CBC Comment AUTO DIFF AUTO DIFF Differential Comment AUTO DIFF AUTO DIFF CONFIRMED CONFIRMED Platelet Estimate NORMAL Platelet Morphology Comment NORMAL Red Cell Morphology Comment NORMAL Laboratory Tests Test 04/28/16 04/29/16 05:30 03:30 Sodium Level 150 MEQ/L 143 MEQ/L Potassium Level 3.4 MEQ/L 3.5 MEQ/L Chloride Level 109 MEQ/L 104 MEQ/L Carbon Dioxide Level 31.1 MEQ/L 28.6 MEQ/L Anion Gap 10 MEQ/L 10 MEQ/L Blood Urea Nitrogen 28 MG/DL 28 MG/DL Creatinine 0.64 MG/DL 0.53 MG/DL Estimat Glomerular Filtration 132 ML/MIN 165 ML/MIN Rate Random Glucose 145 MG/DL 140 MG/DL Lactic Acid Level 2.2 mmol/L Calcium Level 8.8 MG/DL 8.6 MG/DL Phosphorus Level 3.9 MG/DL Magnesium Level 2.4 MG/DL Total Bilirubin 0.7 MG/DL Aspartate Amino Transf 41 U/L (AST/SGOT) Alanine Aminotransferase 165 U/L (ALT/SGPT) Alkaline Phosphatase 76 U/L Total Protein 6.8 GM/DL Albumin 2.8 GM/DL Microbiology Date/Time Procedure Status Source Growth 04/27/16 11:00 Gram Stain - Final Resulted Sputum Endotracheal 04/27/16 11:00 Sputum Culture - Preliminary Resulted Staphylococcus Aureus 04/27/16 11:23 Aerobic Blood Culture - Preliminary Resulted Blood Peripheral NO GROWTH IN 1 DAY 04/27/16 11:23 Anaerobic Blood Culture - Preliminary Resulted Blood Peripheral NO GROWTH IN 1 DAY 04/27/16 11:34 Aerobic Blood Culture - Preliminary Resulted Blood Peripheral NO GROWTH IN 1 DAY 04/27/16 11:34 Anaerobic Blood Culture - Preliminary Resulted Blood Peripheral NO GROWTH IN 1 DAY Imaging Chest X-Ray 04/27/16 0000 Signed Impressions: Service Date/Time: Wednesday, April 27, 2016 13:37 - CONCLUSION: 1. Under aerated. 2. Support apparatus in good position. Bear Barton MD FACR Chest X-Ray 04/25/16 0000 Signed Impressions: Service Date/Time: Monday, April 25, 2016 13:33 - CONCLUSION: Stable chest Bernard Hartman MD Chest X-Ray 04/23/16 0600 Signed Impressions: Service Date/Time: Saturday, April 23, 2016 03:46 - CONCLUSION: Bilateral areas of consolidation or atelectasis being worse on the left. Ubaldo Coombs MD Abdomen X-Ray 03/31/16 0000 Signed Impressions: Service Date/Time: Thursday, March 31, 2016 09:58 - CONCLUSION: Benign abdomen. Rodrigo Martinez MD Chest CT 03/28/16 0836 Signed Impressions: Service Date/Time: Monday, March 28, 2016 09:57 - CONCLUSION: Development areas of air bronchograms and consolidation more prominent in the right and left posterior basilar segments of the lower lobes. ET tube above the chanelle. Bernard Hartman MD CT Angiography 03/24/16 1121 Signed Impressions: Service Date/Time: Thursday, March 24, 2016 12:47 - CONCLUSION: 1. There is respiratory motion artifact but no PE is identified through most of the segmental level pulmonary arteries. 2. Mildly enlarged main pulmonary artery may indicate pulmonary arterial hypertension. 3. 11 mm left lower lobe noncalcified pulmonary nodule. Suggest correlation with any prior imaging studies that could confirm longer-term stability. If none are available consider short-term followup noncontrast chest CT in approximately 3 months. Ubaldo Rodas MD Chest X-Ray 04/19/16 0000 Signed Impressions: Service Date/Time: April 03:20 - CONCLUSION: 1. Cardiomegaly and findings of congestive heart failure. There has been no significant change when compared to the prior exam. Kyaw Rojo MD Chest X-Ray 04/18/16 0000 Signed Impressions: Service Date/Time: Monday, April 18, 2016 09:59 - CONCLUSION: 1. Support equipment in good position. 2. Small left basilar effusion and consolidative changes in the left lower lobe and perihilar region on the right. Dc Barton MD Chest X-Ray 04/16/16 0600 Signed Impressions: Service Date/Time: Saturday, April 16, 2016 03:58 - CONCLUSION: 1. Cardiomegaly. Bilateral lower lobe atelectasis versus pneumonia. There has been no significant change when compared to the prior exam. Kyaw Rojo MD Abdomen X-Ray 03/31/16 0000 Signed Impressions: Service Date/Time: Thursday, March 31, 2016 09:58 - CONCLUSION: Benign abdomen. Rodrigo Martinez MD Chest CT 03/28/16 0836 Signed Impressions: Service Date/Time: Monday, March 28, 2016 09:57 - CONCLUSION: Development areas of air bronchograms and consolidation more prominent in the right and left posterior basilar segments of the lower lobes. ET tube above the chanelle. Bernard Hartman MD CT Angiography 03/24/16 1121 Signed Impressions: Service Date/Time: Thursday, March 24, 2016 12:47 - CONCLUSION: 1. There is respiratory motion artifact but no PE is identified through most of the segmental level pulmonary arteries. 2. Mildly enlarged main pulmonary artery may indicate pulmonary arterial hypertension. 3. 11 mm left lower lobe noncalcified pulmonary nodule. Suggest correlation with any prior imaging studies that could confirm longer-term stability. If none are available consider short-term followup noncontrast chest CT in approximately 3 months. Ubaldo Rodas MD Chest X-Ray 04/12/16599 Signed Impressions: Service Date/Time: April 04:14 - CONCLUSION: Worsening appearance of the chest. Henrry Andrea MD Chest X-Ray 04/11/16 0000 Signed Impressions: Service Date/Time: Monday, April 11, 2016 04:09 - CONCLUSION: No significant change has occurred. Henrry Andrea MD Chest X-Ray 04/09/16899 Signed Impressions: Service Date/Time: Saturday, April 09, 2016 09:12 - CONCLUSION: 1. Diffuse alveolar consolidation of the left lung and right upper lung field consistent with pneumonia and/or asymmetric pulmonary edema. Clinical correlation is recommended. 2. Endotracheal tube has its tip 1 cm above the chanelle. This could be pulled back 2 cm for more optimal position. Farhat Montes MD Chest X-Ray 04/05/16599 Signed Impressions: Service Date/Time: April 03:25 - CONCLUSION: 1. Improved basilar consolidation. Residual versus developing right midlung consolidation. 2. Small bilateral pleural effusions are suspected. 3. No change cardiomegaly or lines/tubes. Ubaldo Ortiz MD Chest X-Ray 04/04/16599 Signed Impressions: Service Date/Time: Monday, April 04, 2016 04:44 - CONCLUSION: Worsening bilateral airspace opacities, especially left perihilar. Ubaldo Ortiz MD Chest X-Ray 04/04/16599 Signed Impressions: Service Date/Time: Monday, April 04, 2016 04:44 - CONCLUSION: Worsening bilateral airspace opacities, especially left perihilar. Ubaldo Ortiz MD Chest X-Ray 04/03/16599 Signed Impressions: Service Date/Time: Sunday, April 03, 2016 00:16 - CONCLUSION: Potential developing pneumonia in the right upper lobe. Bibasilar atelectasis modestly worse in the interim. Ubaldo Ortiz MD Chest X-Ray 04/03/16 0600 Signed Impressions: Service Date/Time: Sunday, April 03, 2016 00:16 - CONCLUSION: Potential developing pneumonia in the right upper lobe. Bibasilar atelectasis modestly worse in the interim. Ubaldo Ortiz MD Chest X-Ray 04/02/16 0925 Signed Impressions: Service Date/Time: Saturday, April 02, 2016 09:22 - CONCLUSION: Place a right jugular catheter terminates superior vena cava with no pneumothorax. Bernard Hartman MD Physical Exam GENERAL: on the vent, NAD. SKIN: Warm and dry. No generalized rash HEENT: No icterus, ET in place. Moist mucosa CHEST: Coarse BS bilaterally, decreased at bases CARDIAC: regular, no murmur ABDOMEN: soft, obese, (+) BS : Becker in place, urine looks clear MUSCULOSKELETAL: Extremities without clubbing, cyanosis. No edema NEUROLOGICAL: On sedation PSYCH: Unable to assess LINE: No evidence of infection Assessment & Plan Remarks IMPRESSION Leukocytosis, persistent - has been on adequate Abx for pathogens isolated Pneumonia, C/S MSSA - Last CXR stable - S/P RX Sputum with persistent MSSA JACOB Respiratory failure Morbid obesity Allergy to PCN, swelling Fevers, recurrent - has (+) BC, Staph epi one out 2 BC, has new line PICC - ?new VAP, has MSSA again RECOMMENDATION Monitor temps Follow CBC Change IV vancomycin to Clindamycin Stop Azactam since no GNR isolated Monitor progress Weaning per CCM Elisha Painter MD Apr 29, 2016 10:32
[2016-04-29] MEDS: CLINDAMYCIN INJ 600 MG in SODIUM CHLORIDE 0.9% INJ 100 ML IV SCH ×2 (11:20→20:59)
[2016-04-29] MEDS: fentaNYL 2,500 MCG/NS 250 ML IV SCH (13:00)
--- NOTE | 2016-04-29 14:52 | HHI.CCPN ---
Subjective Remarks/Hospital Course Patient is a 50 years old obese male with past medical history significant for undiagnosed sleep apnea, super morbid obesity, type 2 diabetes was brought to the emergency department on 03/24/16 after feeling light headed and dizzy. On presentation here was found to be hypoxemic and ABG showed severe hypoxemia and hypercarbia. For a recent driving physical he was diagnosed with low oxygen saturations. Patient's oxygen saturation the ED was in the low 80s, which was confirmed on ABG with a oxygen saturation of 78% and PO2 of 46. CTA negative for PE. Patient was initiated on BiPAP therapy with consult to pulmonary Dr. Crane. His oxygenation improved but he continued to be hypercapnic. Today a.m. on nasal cannula his pH was 7.26 and PCO2 was increased at 99, patient was somnolent was placed back on BiPAP and repeat ABG at noon showed pH 7.26 PCO2 98 and pO2 70. This was on 16 BiPAP with FiO2 50%. Critical care was consulted. On my evaluation patient is somnolent but wakes up easily. I reduced the PEEP on BiPAP from 12-7 to facilitate better ventilation. A repeat ANG showed only minimal improvement, so decision made to intubate patient. Glidescope with #4 blade was used. Only propofol was used for induction. Initially I had a Grade 1-2 view, but I was unable to pass tube through the vocal cord to trachea in two attempts. Tube slipped out of Laryngeal opening both times. Dr Garrett intubated patient after NM paralysis with succinylcholine. Post intubation ABG showed improvement in hypercapnia and oxygenation. 03/27/16: Patient remains intubated heavily sedated with propofol and fentanyl. Remained severely hypoxemic on 100% FiO2, PEEP12, chest x-ray shows bibasilar infiltrates. Flagyl added. We'll give 1 dose of vancomycin-Adjust antibiotics according to cultures. Patient super morbid obesity may prevent Prone therapy 03/28: Remains hypoxic but ABG shows marginal improvement in oxygenation. WBC increasing 20.1 today. Start vancomycin scheduled. 03/29: Oxygenation is slightly improved. FiO2 reduced to 50% today. Chest x- ray remains unchanged. On sedation hold patient does wake up and follow commands. WBC count remains at 20 03/30 No acute events overnight. Sedated with Diprivan and Fentanyl. Had T: 100.1 at 4 am. WBC trending down 15.9 today from 20. 03/31 Patient remains sedated with Diprivan, Fentanyl and intubated. Tmax 100.1. Patient required increase O2 overnight now on ACV with PEEP: 12 and FIO2 70%. 04/01: Tmax 99.7. No bowel movement since admission. Patient has bowel sounds. Arousable on the ventilator. We'll attempt prone the patient paralyzed to increase oxygenation status. 04/02: MAXIMUM TEMPERATURE 100.9. Currently 97.7. 5 10 cc stools overnight. Placed on Roto prone yesterday. Saturations currently 94% on Flolan. Diuresed overnight. Creatinine still within normal limits. 04/03: Tmax 101. Currently 99.1. Positive BM. Did not tolerate not being unprone this AM. Saturations much improved prone. Tolerating tube feeding. 04/04: Tmax 100.8. Currently 98.8. +2 L past 24 hours. Attempt to on prone today. Positive BM. C. difficile negative. Remains paralyzed. 04/05: Remains sedated, orally intubated on neuromuscular blockade on mechanical ventilation. Remains on Rota prone bed. On insulin drip. 04/06: Remains sedated, orally intubated on neuromuscular blockade, on mechanical ventilation. Remains on Rota prone bed. Insulin drip continues. 04/07 Patient remains on Rotoprone bed sedated with Diprivan, Versed, Fentanyl in addition patient is on Nimbex. Afebrile. On Insulin drip 5u/hr. 04/08 Patient remains sedated and intubated and on Nimbex. Off insulin drip. On PRVC/AC with RR 15, TV 550, IT: 1.65, PEEP: 15 and FIO2 100%. T: 100.2 at 4 am. 04/09 Patient is sedated, intubated and remains on neuromuscular blockade. Vent setting unchanged. afebrile. 04/10 Patient remains sedated and intubated and on Nimbex. On PRVC/AC, RR 15, TV 500, PEEP: 15, FIO2 90%, IT:1.65, on Flolan drip. Remains on Rotoprone bed. 04/11 minimal improvement in oxygenation, FiO2 now at 75 - continue to improve oxygenation, worsening CXR 04/13/10 continue to improve oxygenation DC'd prone position last night 04/14- improving oxygenation, Nimbex discontinued as well as prone position 04/16 Patient is sedated with Versed and Fentanyl and intubated. Off rotoprone bed. On PRVC/AC RR 15, TV 550, IT 1.65, PEEP:15, FIO2 50%. 04/17 Patient remains sedated with Versed and Fentanyl. Afebrile, tolerating tube feeds 04/18 No acute events overnight Sedated and intubated. Afebrile. On PRVC/AC RR 15 , TV 550, IT 1.65, PEEP:15, FIO2 60% 04/19: Spiking fever up to 101, pancultured and 1 dose of vancomycin given by ID. On weaning doses of Flolan. FiO2 down to 50% I have reduced PEEP to 14. Remains critically ill 04/20: No fever. Sputum cx with Staph -S pending. Fio2 50% PEEP remains at 14. TV increased to 650 to improve lung recruitment. On weaning dose of Flolan-DC after current bag 04/21:Afebrile. Hyponatremia resolving, the patient will be placed on free water flushes. 04/22:The patient had an episode of acute desaturation requiring FiO2 increased to 90%. Stat chest x-ray stat ABG aggressive pulmonary toileting and suctioning , resolution of symptoms FiO2 now 55%. ABGs within normal limits. 04/23: Tmax 99.5. Currently afebrile. O2 sat 50%. PEEP down to 13. One small bowel movement overnight. 04/24: Currently afebrile. O2 sat 45%. PEEP to 12. One BM. Tolerating tube feeds. 04/25: Afebrile. PEEP down to 11. Positive BM. Tolerating tube feeds. Awake on the ventilator with eyes open. 04/26: Afebrile. PEEP down to 10. Time to feeding. Awake and alert eyes open. 04/27: Suspected fever overnight. One bowel movement documented. Will decreased PEEP to 9. Awake and alert and follows commands. 04/28: Tmax 99.3. Currently afebrile. FiO2 increased to 70%. PEEP to 10. Awake and does follow commands. Positive BM 4 yesterday. Subjective 04/29: FiO2 down to 55%. Peak systolic 10. Awake and does follow commands. Positive BM 1 yesterday. Tolerating tube feeding. Objective Vital Signs Date Time Temp Pulse Resp B/P Pulse Ox O2 Delivery O2 Flow Rate FiO2 04/29/16 12:46 92 55 04/29/16 12:00 98.5 103 16 120/63 Intake and Output 04/28/16 04/28/16 04/29/16 08:00 16:00 00:00 Intake Total 1439 ml 1618 ml 936 ml Output Total 250 ml 1650 ml 650 ml Balance 1189 ml -32 ml 286 ml Result Diagram: 04/29/16 0330 04/29/16 0330 Other Results Microbiology Date/Time Procedure Status Source Growth 04/27/16 11:34 Aerobic Blood Culture - Preliminary Resulted Blood Peripheral NO GROWTH IN 2 DAYS 04/27/16 11:34 Anaerobic Blood Culture - Preliminary Resulted Blood Peripheral NO GROWTH IN 2 DAYS 04/27/16 11:00 Gram Stain - Final Complete Sputum Endotracheal 04/27/16 11:00 Sputum Culture - Final Complete Staphylococcus Aureus 04/25/16 10:00 Urine Culture - Final Complete Urine Catheterized Urine NO GROWTH IN 48 HOURS. Imaging Last Impressions Chest X-Ray 04/27/16 0000 Signed Impressions: Service Date/Time: Wednesday, April 27, 2016 13:37 - CONCLUSION: 1. Under aerated. 2. Support apparatus in good position. Bear Barton MD FACR Abdomen X-Ray 03/31/16 0000 Signed Impressions: Service Date/Time: Thursday, March 31, 2016 09:58 - CONCLUSION: Benign abdomen. Rodrigo Martinez MD Chest CT 03/28/16 0836 Signed Impressions: Service Date/Time: Monday, March 28, 2016 09:57 - CONCLUSION: Development areas of air bronchograms and consolidation more prominent in the right and left posterior basilar segments of the lower lobes. ET tube above the chanelle. Bernard Hartman MD CT Angiography 03/24/16 1121 Signed Impressions: Service Date/Time: Thursday, March 24, 2016 12:47 - CONCLUSION: 1. There is respiratory motion artifact but no PE is identified through most of the segmental level pulmonary arteries. 2. Mildly enlarged main pulmonary artery may indicate pulmonary arterial hypertension. 3. 11 mm left lower lobe noncalcified pulmonary nodule. Suggest correlation with any prior imaging studies that could confirm longer-term stability. If none are available consider short-term followup noncontrast chest CT in approximately 3 months. Ubaldo Rodas MD Objective Remarks GENERAL: 50-year-old male, critically ill. Orally intubated on mechanical ventilation, on sedation SKIN: Seborrheic dermatitis of the face HEAD: Atraumatic. Normocephalic. EYES: Pupils equal round and slightly reactive about 3 millimeters bilaterally. ENT: NG tube in place. Orotracheally intubated NECK: Very large neck. Trachea midline. CARDIOVASCULAR: Distant heart sounds. RRR. S1, S2. No S4. Without murmur RESPIRATORY: Orally intubated on mechanical ventilation, Breath sounds equal bilaterally. Diminished breath sounds due to body habitus. GASTROINTESTINAL: Abdomen soft, obese, nontender. Severe central obesity MUSCULOSKELETAL: Extremities with trace to 1+ nonpitting bilateral lower extremity edema. Left antecubital PICC line is clean dry and intact NEUROLOGICAL: Arousable on the ventilator. Follows commands. Wiggles toes. Squeezes hands Vascular Central Line Catheter: Yes Assessment to: Continue Date of Insertion: Apr 02, 2016 Line: PICC Side: Left Location: Antecubital A/P Assessment and Plan Neuro/Psych: Likely SERENITY Toxic metabolic encephalopathy Currently On Fentanyl drip at 150 mcg an hour and Versed infusion 5 mg an hour for sedation and analgesia while intubated Continue oxycodone 5 every 6 and attempt to wean down analgesic sedation Goal of RASS -2 Daily sedation vacation when appropriate PEEP< 8, FIO2.50 Acetaminophen for fever Pulm: Acute hypoxemic respiratory failure JACOB [facility] History of staph aureus pneumonia/HCAP ARDS On PRVC/AC RR 15, TV 650, IT:1.65, PEEP:10, FIO2 55% Continue with vent support keep sat >92%. Bronchodilators every 6 hours and every 2 hours as needed ICU vent bundle. Flolan off since 04/21 on Solumedrol 40mg daily Advanced ET tube 04/24 from 19-22 cm Plan for tracheostomy 05/[address] Rosenberg CV: Monitor HR and BP keep MAP>65mmHg 2-D echo 03/26 EF 60%. No regional wall motion abnormality. Mild MR/TR. /FEN: Hypokalemia Hypernatremia Monitor renal function, I/O's, electrolytes replacement per protocol. Currently holding diuretics. Will likely need to restart GI: Constipation Moderate protein calorie malnutrition On Glucerna 1.5@45ml/hr with 1 scoop whey protein 3 times a day, Protonix 40mg daily On Reglan 10mg Q8, Senna and Colace twice a day.. Continue MiraLAX twice a day and lactulose 4 times a day. ID: Staph aureus pneumonia Possible staph bacteremia Pertinent culture 04/27 - pansensitive staph aureus 04/27 blood cultures 2 negative 04/25 - urine -no growth 04/19 - blood cultures 2 out of 4 - staph aureus 04/19 - sputum - staph aureus 04/08 - sputum - staph aureus 04/03 - sputum - staph aureus 03/30 - sputum- -staph aureus 03/27 - sputum - staph aureus 03/26 - blood - staph hominis On vancomycin 2 g IV every 12 are since 04/19 - 04/29 Azactam 04/27 through 04/29 Currently on clindamycin day #1 Heme: Leukocytosis Monitor CBC/coags Endo: Diabetes mellitus SSI for glycemic control (high scale) 30 units sliding scale insulin scale insulin in the past 24 hours, Levemir insulin 70 U Q12 MSK Morbid obesity Weight loss encouraged DVT, GI prophylaxis -Bilateral lower extremity SCDs. IV Protonix 40 mg daily. Lovenox 40 mg sq BID LINES: -Left upper extremity PICC line placed 04/15 Critical Care: The total care time was 35 minutes. Time to perform other separately billable procedures was not included in the critical care time. Codey Florentino MD Apr 29, 2016 14:52
--- NOTE | 2016-04-29 17:14 | PD.CAR.PN ---
CVT Progress Note Subjective/Hospital Course: Consult received Patient will need to have tracheostomy in the operating room due to the body habitus and obesity Will proceed with same once the ventilator settings are somewhat down probably early next week Thanks J 04/29/16 Patient unless her ventilatory support now only on 10 of PEEP and 50% FiO2 The patient remains so we'll proceed with tracheostomy tomorrow. Considering the patient's body habitus and obesity will go ahead with this in the operating room Objective: Vital Signs Date Time Temp Pulse Resp B/P Pulse Ox O2 Delivery O2 Flow Rate FiO2 04/29/16 14:00 105 04/29/16 12:46 92 55 04/29/16 12:00 98.5 103 16 120/63 92 04/29/16 12:00 60 04/29/16 12:00 103 04/29/16 10:00 91 04/29/16 08:00 60 04/29/16 08:00 98.4 80 16 102/59 93 04/29/16 08:00 108 04/29/16 07:57 94 55 04/29/16 06:00 90 04/29/16 04:10 94 60 04/29/16 04:00 98.9 97 16 130/78 94 04/29/16 04:00 60 04/29/16 04:00 97 04/29/16 02:00 75 04/29/16 01:15 93 60 04/29/16 00:00 80 04/29/16 00:00 99.0 80 16 105/68 93 04/29/16 00:00 60 04/28/16 22:20 92 60 04/28/16 22:00 86 04/28/16 20:00 97 04/28/16 20:00 93 60 04/28/16 20:00 99.8 97 16 118/76 91 04/28/16 20:00 60 04/28/16 18:00 108 Result Diagram: 04/29/16 0330 04/29/16 0330 Renetta Reyes MD Apr 29, 2016 17:14
--- NOTE | 2016-04-29 17:42 | HHI.PR ---
Subjective Remarks ON THE VENT SEDATED FIO2 AT 80% Objective Vital Signs Date Time Temp Pulse Resp B/P Pulse Ox O2 Delivery O2 Flow Rate FiO2 04/29/16 14:00 105 04/29/16 12:46 92 55 04/29/16 12:00 98.5 103 16 120/63 92 04/29/16 12:00 60 04/29/16 12:00 103 04/29/16 10:00 91 04/29/16 08:00 60 04/29/16 08:00 98.4 80 16 102/59 93 04/29/16 08:00 108 04/29/16 07:57 94 55 04/29/16 06:00 90 04/29/16 04:10 94 60 04/29/16 04:00 98.9 97 16 130/78 94 04/29/16 04:00 60 04/29/16 04:00 97 04/29/16 02:00 75 04/29/16 01:15 93 60 04/29/16 00:00 80 04/29/16 00:00 99.0 80 16 105/68 93 04/29/16 00:00 60 04/28/16 22:20 92 60 04/28/16 22:00 86 04/28/16 20:00 97 04/28/16 20:00 93 60 04/28/16 20:00 99.8 97 16 118/76 91 04/28/16 20:00 60 04/28/16 18:00 108 I/O 04/28/16 04/28/16 04/28/16 04/29/16 04/29/16 04/29/16 07:00 15:00 23:00 07:00 15:00 23:00 Intake Total 1439 ml 1618 ml 936 ml 1394 ml 1491 ml Output Total 250 ml 1650 ml 650 ml 300 ml 800 ml Balance 1189 ml -32 ml 286 ml 1094 ml 691 ml IV Total 829 ml 1006 ml 569 ml 870 ml 674 ml Tube Feeding 310 ml 362 ml 367 ml 324 ml 417 ml Other 300 ml 250 ml 200 ml 400 ml Output Urine Total 250 ml 1650 ml 650 ml 300 ml 800 ml # Bowel Movements 2 0 0 1 1 Result Diagram: 04/29/16 03304/29/16 033 Objective Remarks GENERAL: SKIN: Warm and dry. HEAD: Atraumatic. Normocephalic. EYES: Pupils equal and round. No scleral icterus. No injection or drainage. ENT: No nasal bleeding or discharge. Mucous membranes pink and moist. NECK: Trachea midline. No JVD. CARDIOVASCULAR: Regular rate and rhythm. RESPIRATORY: No accessory muscle use. Clear to auscultation. Breath sounds equal bilaterally. GASTROINTESTINAL: Abdomen soft, non-tender, nondistended. Hepatic and splenic margins not palpable. MUSCULOSKELETAL: Extremities without clubbing, cyanosis, or edema. No obvious deformities. NEUROLOGICAL: Awake and alert. No obvious cranial nerve deficits. Motor grossly within normal limits. Five out of 5 muscle strength in the arms and legs. Normal speech. PSYCHIATRIC: Appropriate mood and affect; insight and judgment normal. Assessment and Plan Assessment and Plan RESPIRATORY FAILURE SEPSIS ARDS JACOB/CSA PLAN VENT SUPPORT FIO2 0.5 PULM TOILET WEAN TOLERATED. CHECK ABG , CXRAY FOR TRACHEOSTOMY Orlando Perry MD Apr 29, 2016 17:41
[2016-04-29] MEDS: PANTOPRAZOLE SODIUM 40 MG VIAL IV PUSH SCH (18:05)
[2016-04-30] VITALS (19 sets, daily range): BP systolic 103–121; BP diastolic 61–81; PULSE 68–98; RESP 15–22; TEMP 98–98.5; O2SAT 92–100
[2016-04-30] MEDS: INSULIN NovoLIN REGULAR SUPPLEMENTAL SCALE SQ SCH ×4 (00:45→18:00)
[2016-04-30] MEDS: ARTIFICIAL TEARS OPTH SOLN 15 ML BTL EACH EYE SCH ×6 (03:06→21:09)
[2016-04-30] MEDS: CLINDAMYCIN INJ 600 MG in SODIUM CHLORIDE 0.9% INJ 100 ML IV SCH ×3 (03:08→21:07)
[2016-04-30] MEDS: RESP: ALBUTEROL 2.5 MG/IPRATROPIUM 0.5 MG NEB (SCH) NEB ×6 (03:34→23:45)
[2016-04-30 04:41] LABS: AUTOMATED NEUTROPHIL # 10.2 TH/MM3 (1.8-7.7); BASOPHIL % 0.4 % (0.0-2.0); EOSINOPHIL # 0.1 TH/MM3 (0-0.4); EOSINOPHIL % 0.7 % (0.0-4.0); HEMATOCRIT 34.4 % (39.0-51.0); LYMPH % 13.3 % (9.0-44.0); LYMPHOCYTE # 1.7 TH/MM3 (1.0-4.8); MEAN CELL VOLUME 83.4 FL (80.0-100.0); MEAN CORPUSCULAR HEMOGLOBIN 26.7 PG (27.0-34.0); NEUT % 81.6 % (16.0-70.0); PLATELET COUNT 202 TH/MM3 (150-450); RED BLOOD COUNT 4.13 MIL/MM3 (4.50-5.90); RED CELL DISTRIBUTION WIDTH 15.7 % (11.6-17.2); WHITE BLOOD COUNT 12.5 TH/MM3 (4.0-11.0)
[2016-04-30 04:49] LABS: HEMO FLAGS AUTO DIFF
[2016-04-30 05:04] LABS: BICARBONATE 26.9 MEQ/L (21.0-32.0); MAGNESIUM 2.5 MG/DL (1.5-2.5); POTASSIUM 3.3 MEQ/L (3.5-5.1)
[2016-04-30] MEDS: ENOXAPARIN SODIUM 40 MG/0.4 ML SYRINGE SQ SCH ×2 (05:21→18:00)
[2016-04-30] MEDS: FREE WATER G-TUBE SCH ×4 (05:21→18:00)
[2016-04-30] MEDS: METOCLOPRAMIDE HCL 10 MG/2 ML VIAL IV PUSH SCH ×3 (05:21→21:20)
--- NOTE | 2016-04-30 06:37 | RADRPT ---
EXAM DATE/TIME: 04/30/2016 04:30 [facility] COMPARISON: CHEST SINGLE AP, April 27, 2016, 13:37. INDICATIONS : Shortness of breath, possible pulmonary disease. MEDICAL HISTORY : Diabetes mellitus type II. SURGICAL HISTORY : None. ENCOUNTER: Subsequent ACUITY: 1 month PAIN SCORE: Non-responsive. LOCATION: Bilateral chest FINDINGS: A single view of the chest demonstrates endotracheal tube tip in satisfactory position. NG enters sto mach. Left-sided PICC line in right atrium. Bilateral mostly basilar airspace disease. No pneumothora x. CONCLUSION: 1. Support apparatus in satisfactory position. Bilateral mostly basilar airspace disease similar to p rior examination. Kyle Lorenzo MD on April 30, 2016 at 6:34 Board Certified Radiologist. This report was verified electronically.
[2016-04-30 07:13] LABS: BANDS 1 % (0-6); EOSINOPHILS 1 % (0-4); NEUTROPHIL # MANUAL DIFF 11.3 TH/MM3 (1.8-7.7); POLYS (SEG NEUTROPHILS) 89 % (16-70); WBC DIFF SAMPLE 100
[2016-04-30 07:15] LABS: PLATELET ESTIMATE SMEAR NORMAL (NORMAL); PLATELET MORPHOLOGY NORMAL (NORMAL); SCAN/DIFF FINAL DIFF MANUAL
[2016-04-30] MEDS: CHLORHEXIDINE 0.12% (ORAL KIT) 15 ML CUP MT SCH ×2 (08:00→21:08)
[2016-04-30] MEDS: RESP: SODIUM CHLORIDE 3% 4 ML NEB NEB SCH ×2 (08:21→23:45)
[2016-04-30] MEDS: methylPREDNISolone SOD SUCC 40 MG/1 ML VIAL IV PUSH SCH (08:41)
[2016-04-30] MEDS: MIDAZOLAM 100 MG/ML INJ 100 ML IV SCH ×2 (08:41→19:36)
[2016-04-30] MEDS: fentaNYL 2,500 MCG/NS 250 ML IV SCH ×2 (08:49→21:07)
[2016-04-30] MEDS: DOCUSATE SODIUM 100 MG/10 ML UDC PO SCH ×2 (09:00→21:00)
[2016-04-30] MEDS: SODIUM CHLORIDE 0.9% FLUSH 5 ML FLUSH IVF SCH (09:00)
[2016-04-30] MEDS: BENEPROTEIN POWDER 1 PACK G-TUBE SCH ×3 (09:00→18:00)
[2016-04-30] MEDS: POLYETHYLENE GLYCOL 17 GM PKG PO SCH ×2 (09:00→21:00)
[2016-04-30] MEDS: INSULIN DETEMIR 100 UNITS/ML VIAL SQ SCH ×2 (09:00→21:00)
[2016-04-30] MEDS: SENNOSIDES SYRUP 8.8 MG/5 ML CUP PO/TUBE SCH ×2 (09:00→21:00)
[2016-04-30] MEDS: LACTOBACILLUS ACIDOPHILUS TAB PO SCH ×3 (09:00→18:00)
[2016-04-30] MEDS: BETAMETHASONE/CLOTRIMAZOLE CREAM 15 GM TOPICAL SCH ×2 (09:52→21:09)
[2016-04-30] MEDS: NYSTATIN 100,000 U/GM PWD 15 GM BTL TOPICAL SCH ×2 (09:52→21:09)
[2016-04-30] MEDS: ARTIFICIAL TEARS OPTH OINT 3.5 APPLIC/3.5 GM TUBO EACH EYE SCH ×2 (09:52→21:09)
[2016-04-30] MEDS ORDERED: PHARMACY ORDERED LAB XX ONE (10:45)
--- NOTE | 2016-04-30 12:05 | HHI.IDPN ---
Subjective Subjective Remarks Notes reviewed. Temps ok On the vent, same settings Plans for trach noted is a 50 years old obese male with past medical history significant for undiagnosed sleep apnea, super morbid obesity, type 2 diabetes was brought to the emergency department on 03/24/16. ID following for MSSA pneumonia. Antibiotics Clindamycin Lines PICC 04/15 Past Medical History Reviewed Allergies: Coded Allergies: Penicillin (Verified Allergy, Severe, Swelling, 03/24/16) Tetanus Toxoid (Verified Allergy, Unknown, Swelling, 03/24/16) Objective . Vital Signs Date Time Temp Pulse Resp B/P Pulse Ox O2 Delivery O2 Flow Rate FiO2 04/30/16 11:22 93 53 04/30/16 10:00 98 04/30/16 08:23 97 55 04/30/16 08:00 98.2 78 18 117/74 96 04/30/16 08:00 98 04/30/16 08:00 55 04/30/16 06:00 84 04/30/16 04:38 96 55 04/30/16 04:00 74 04/30/16 04:00 98.0 74 20 103/64 96 04/30/16 04:00 60 04/30/16 02:00 75 04/30/16 01:18 93 55 04/30/16 00:00 84 04/30/16 00:00 60 04/30/16 00:00 98.3 84 18 104/61 94 04/29/16 22:00 99 04/29/16 20:04 94 55 04/29/16 20:00 76 04/29/16 20:00 60 04/29/16 20:00 98.5 76 20 97/59 93 04/29/16 18:00 77 04/29/16 16:00 103 04/29/16 16:00 60 04/29/16 16:00 98.2 101 18 115/67 93 04/29/16 14:00 105 04/29/16 12:46 92 55 04/29/16 04/29/16 04/30/16 15:00 23:00 07:00 Intake Total 1491 ml 554 ml 332 ml Output Total 800 ml 450 ml 350 ml Balance 691 ml 104 ml -18 ml IV Total 674 ml 236 ml 332 ml Tube Feeding 417 ml 288 ml 0 ml Other 400 ml 30 ml 0 ml Output Urine Total 800 ml 450 ml 350 ml # Bowel Movements 1 0 0 . Laboratory Tests Test 04/29/16 04/30/16 03:30 03:00 White Blood Count 13.3 TH/MM3 12.5 TH/MM3 Red Blood Count 4.33 MIL/MM3 4.13 MIL/MM3 Hemoglobin 11.7 GM/DL 11.0 GM/DL Hematocrit 36.0 % 34.4 % Mean Corpuscular Volume 83.1 FL 83.4 FL Mean Corpuscular Hemoglobin 27.1 PG 26.7 PG Mean Corpuscular Hemoglobin 32.6 % 32.0 % Concent Red Cell Distribution Width 15.9 % 15.7 % Platelet Count 203 TH/MM3 202 TH/MM3 Mean Platelet Volume 9.4 FL 9.2 FL Neutrophils (%) (Auto) 76.9 % 81.6 % Lymphocytes (%) (Auto) 16.4 % 13.3 % Monocytes (%) (Auto) 4.7 % 4.0 % Eosinophils (%) (Auto) 1.6 % 0.7 % Basophils (%) (Auto) 0.4 % 0.4 % Neutrophils # (Auto) 10.2 TH/MM3 10.2 TH/MM3 Lymphocytes # (Auto) 2.2 TH/MM3 1.7 TH/MM3 Monocytes # (Auto) 0.6 TH/MM3 0.5 TH/MM3 Eosinophils # (Auto) 0.2 TH/MM3 0.1 TH/MM3 Basophils # (Auto) 0.1 TH/MM3 0.0 TH/MM3 CBC Comment AUTO DIFF AUTO DIFF Differential Comment AUTO DIFF FINAL DIFF CONFIRMED MANUAL Differential Total Cells 100 Counted Neutrophils % (Manual) 89 % Band Neutrophils % 1 % Lymphocytes % 6 % Monocytes % 3 % Eosinophils % 1 % Neutrophils # (Manual) 11.3 TH/MM3 Platelet Estimate NORMAL Platelet Morphology Comment NORMAL Red Cell Morphology Comment NORMAL Laboratory Tests Test 04/29/16 04/30/16 03:30 03:00 Sodium Level 143 MEQ/L 143 MEQ/L Potassium Level 3.5 MEQ/L 3.3 MEQ/L Chloride Level 104 MEQ/L 104 MEQ/L Carbon Dioxide Level 28.6 MEQ/L 26.9 MEQ/L Anion Gap 10 MEQ/L 12 MEQ/L Blood Urea Nitrogen 28 MG/DL 25 MG/DL Creatinine 0.53 MG/DL 0.45 MG/DL Estimat Glomerular Filtration 165 ML/MIN 199 ML/MIN Rate Random Glucose 140 MG/DL 126 MG/DL Calcium Level 8.6 MG/DL 8.8 MG/DL Phosphorus Level 3.9 MG/DL Magnesium Level 2.5 MG/DL Imaging Chest X-Ray 04/27/16 0000 Signed Impressions: Service Date/Time: Wednesday, April 27, 2016 13:37 - CONCLUSION: 1. Under aerated. 2. Support apparatus in good position. Bear Barton MD FACR Chest X-Ray 04/25/16 0000 Signed Impressions: Service Date/Time: Monday, April 25, 2016 13:33 - CONCLUSION: Stable chest Bernard Hartman MD Chest X-Ray 04/23/16 0600 Signed Impressions: Service Date/Time: Saturday, April 23, 2016 03:46 - CONCLUSION: Bilateral areas of consolidation or atelectasis being worse on the left. Ubaldo Coombs MD Abdomen X-Ray 03/31/16 0000 Signed Impressions: Service Date/Time: Thursday, March 31, 2016 09:58 - CONCLUSION: Benign abdomen. Rodrigo Martinez MD Chest CT 03/28/16 0836 Signed Impressions: Service Date/Time: Monday, March 28, 2016 09:57 - CONCLUSION: Development areas of air bronchograms and consolidation more prominent in the right and left posterior basilar segments of the lower lobes. ET tube above the chanelle. Bernard Hartman MD CT Angiography 03/24/16 1121 Signed Impressions: Service Date/Time: Thursday, March 24, 2016 12:47 - CONCLUSION: 1. There is respiratory motion artifact but no PE is identified through most of the segmental level pulmonary arteries. 2. Mildly enlarged main pulmonary artery may indicate pulmonary arterial hypertension. 3. 11 mm left lower lobe noncalcified pulmonary nodule. Suggest correlation with any prior imaging studies that could confirm longer-term stability. If none are available consider short-term followup noncontrast chest CT in approximately 3 months. Ubaldo Roads MD Chest X-Ray 04/19/16 0000 Signed Impressions: Service Date/Time: April 03:20 - CONCLUSION: 1. Cardiomegaly and findings of congestive heart failure. There has been no significant change when compared to the prior exam. Kyaw Rojo MD Chest X-Ray 04/18/16 0000 Signed Impressions: Service Date/Time: Monday, April 18, 2016 09:59 - CONCLUSION: 1. Support equipment in good position. 2. Small left basilar effusion and consolidative changes in the left lower lobe and perihilar region on the right. Dc Barton MD Chest X-Ray 04/16/16 0600 Signed Impressions: Service Date/Time: Saturday, April 16, 2016 03:58 - CONCLUSION: 1. Cardiomegaly. Bilateral lower lobe atelectasis versus pneumonia. There has been no significant change when compared to the prior exam. Kyaw Rojo MD Abdomen X-Ray 03/31/16 0000 Signed Impressions: Service Date/Time: Thursday, March 31, 2016 09:58 - CONCLUSION: Benign abdomen. Rodrigo Martinez MD Chest CT 03/28/16 0836 Signed Impressions: Service Date/Time: Monday, March 28, 2016 09:57 - CONCLUSION: Development areas of air bronchograms and consolidation more prominent in the right and left posterior basilar segments of the lower lobes. ET tube above the chanelle. Bernard Hartman MD CT Angiography 03/24/16 1121 Signed Impressions: Service Date/Time: Thursday, March 24, 2016 12:47 - CONCLUSION: 1. There is respiratory motion artifact but no PE is identified through most of the segmental level pulmonary arteries. 2. Mildly enlarged main pulmonary artery may indicate pulmonary arterial hypertension. 3. 11 mm left lower lobe noncalcified pulmonary nodule. Suggest correlation with any prior imaging studies that could confirm longer-term stability. If none are available consider short-term followup noncontrast chest CT in approximately 3 months. Ubaldo Rodas MD Chest X-Ray 04/12/16 0600 Signed Impressions: Service Date/Time: April 04:14 - CONCLUSION: Worsening appearance of the chest. Henrry Andrea MD Chest X-Ray 04/11/16 0000 Signed Impressions: Service Date/Time: Monday, April 11, 2016 04:09 - CONCLUSION: No significant change has occurred. Henrry Andrea MD Chest X-Ray 04/09/16 0900 Signed Impressions: Service Date/Time: Saturday, April 09, 2016 09:12 - CONCLUSION: 1. Diffuse alveolar consolidation of the left lung and right upper lung field consistent with pneumonia and/or asymmetric pulmonary edema. Clinical correlation is recommended. 2. Endotracheal tube has its tip 1 cm above the chanelle. This could be pulled back 2 cm for more optimal position. Farhat Montes MD Chest X-Ray 04/05/16599 Signed Impressions: Service Date/Time: April 03:25 - CONCLUSION: 1. Improved basilar consolidation. Residual versus developing right midlung consolidation. 2. Small bilateral pleural effusions are suspected. 3. No change cardiomegaly or lines/tubes. Ubaldo Ortiz MD Chest X-Ray 04/04/16599 Signed Impressions: Service Date/Time: Monday, April 04, 2016 04:44 - CONCLUSION: Worsening bilateral airspace opacities, especially left perihilar. Ubaldo Ortiz MD Chest X-Ray 04/04/16599 Signed Impressions: Service Date/Time: Monday, April 04, 2016 04:44 - CONCLUSION: Worsening bilateral airspace opacities, especially left perihilar. Ubaldo Ortiz MD Chest X-Ray 04/03/16599 Signed Impressions: Service Date/Time: Sunday, April 03, 2016 00:16 - CONCLUSION: Potential developing pneumonia in the right upper lobe. Bibasilar atelectasis modestly worse in the interim. Ubaldo Ortiz MD Chest X-Ray 04/03/16599 Signed Impressions: Service Date/Time: Sunday, April 03, 2016 00:16 - CONCLUSION: Potential developing pneumonia in the right upper lobe. Bibasilar atelectasis modestly worse in the interim. Ubaldo Ortiz MD Chest X-Ray 04/02/16 0925 Signed Impressions: Service Date/Time: Saturday, April 02, 2016 09:22 - CONCLUSION: Place a right jugular catheter terminates superior vena cava with no pneumothorax. Bernard Hartman MD Physical Exam GENERAL: on the vent, NAD. SKIN: Warm and dry. No generalized rash HEENT: No icterus, ET in place. Moist mucosa CHEST: Coarse BS bilaterally, decreased at bases CARDIAC: regular, no murmur ABDOMEN: soft, obese, (+) BS : Becker in place, urine looks clear MUSCULOSKELETAL: Extremities without clubbing, cyanosis. No edema NEUROLOGICAL: On sedation PSYCH: Unable to assess LINE: No evidence of infection Assessment & Plan Remarks IMPRESSION Leukocytosis, persistent, stable - has been on adequate Abx for pathogens isolated Pneumonia, C/S MSSA - Last CXR stable - S/P RX Sputum with persistent MSSA JACOB Respiratory failure Morbid obesity Allergy to PCN, swelling Fevers, recurrent - has (+) BC, Staph epi one out 2 BC, has new line PICC - ?new VAP, has MSSA again RECOMMENDATION Monitor temps Follow CBC Continue IV Clindamycin Monitor progress Plans for trach noted Elisha Painter MD Apr 30, 2016 12:05
[2016-04-30] MEDS ORDERED: LIDOCAINE 1%/EPINEPHrine 1:100,000 SOLN 30 ML VIAL ONE (13:00)
--- NOTE | 2016-04-30 13:33 | HHI.CCPN ---
Subjective Remarks/Hospital Course Patient is a 50 years old obese male with past medical history significant for undiagnosed sleep apnea, super morbid obesity, type 2 diabetes was brought to the emergency department on 03/24/16 after feeling light headed and dizzy. On presentation here was found to be hypoxemic and ABG showed severe hypoxemia and hypercarbia. For a recent driving physical he was diagnosed with low oxygen saturations. Patient's oxygen saturation the ED was in the low 80s, which was confirmed on ABG with a oxygen saturation of 78% and PO2 of 46. CTA negative for PE. Patient was initiated on BiPAP therapy with consult to pulmonary Dr. Crane. His oxygenation improved but he continued to be hypercapnic. Today a.m. on nasal cannula his pH was 7.26 and PCO2 was increased at 99, patient was somnolent was placed back on BiPAP and repeat ABG at noon showed pH 7.26 PCO2 98 and pO2 70. This was on 16 BiPAP with FiO2 50%. Critical care was consulted. On my evaluation patient is somnolent but wakes up easily. I reduced the PEEP on BiPAP from 12-7 to facilitate better ventilation. A repeat ANG showed only minimal improvement, so decision made to intubate patient. Glidescope with #4 blade was used. Only propofol was used for induction. Initially I had a Grade 1-2 view, but I was unable to pass tube through the vocal cord to trachea in two attempts. Tube slipped out of Laryngeal opening both times. Dr Garrett intubated patient after NM paralysis with succinylcholine. Post intubation ABG showed improvement in hypercapnia and oxygenation. 03/27/16: Patient remains intubated heavily sedated with propofol and fentanyl. Remained severely hypoxemic on 100% FiO2, PEEP12, chest x-ray shows bibasilar infiltrates. Flagyl added. We'll give 1 dose of vancomycin-Adjust antibiotics according to cultures. Patient super morbid obesity may prevent Prone therapy 03/28: Remains hypoxic but ABG shows marginal improvement in oxygenation. WBC increasing 20.1 today. Start vancomycin scheduled. 03/29: Oxygenation is slightly improved. FiO2 reduced to 50% today. Chest x- ray remains unchanged. On sedation hold patient does wake up and follow commands. WBC count remains at 20 03/30 No acute events overnight. Sedated with Diprivan and Fentanyl. Had T: 100.1 at 4 am. WBC trending down 15.9 today from 20. 03/31 Patient remains sedated with Diprivan, Fentanyl and intubated. Tmax 100.1. Patient required increase O2 overnight now on ACV with PEEP: 12 and FIO2 70%. 04/01: Tmax 99.7. No bowel movement since admission. Patient has bowel sounds. Arousable on the ventilator. We'll attempt prone the patient paralyzed to increase oxygenation status. 04/02: MAXIMUM TEMPERATURE 100.9. Currently 97.7. 5 10 cc stools overnight. Placed on Roto prone yesterday. Saturations currently 94% on Flolan. Diuresed overnight. Creatinine still within normal limits. 04/03: Tmax 101. Currently 99.1. Positive BM. Did not tolerate not being unprone this AM. Saturations much improved prone. Tolerating tube feeding. 04/04: Tmax 100.8. Currently 98.8. +2 L past 24 hours. Attempt to on prone today. Positive BM. C. difficile negative. Remains paralyzed. 04/05: Remains sedated, orally intubated on neuromuscular blockade on mechanical ventilation. Remains on Rota prone bed. On insulin drip. 04/06: Remains sedated, orally intubated on neuromuscular blockade, on mechanical ventilation. Remains on Rota prone bed. Insulin drip continues. 04/07 Patient remains on Rotoprone bed sedated with Diprivan, Versed, Fentanyl in addition patient is on Nimbex. Afebrile. On Insulin drip 5u/hr. 04/08 Patient remains sedated and intubated and on Nimbex. Off insulin drip. On PRVC/AC with RR 15, TV 550, IT: 1.65, PEEP: 15 and FIO2 100%. T: 100.2 at 4 am. 04/09 Patient is sedated, intubated and remains on neuromuscular blockade. Vent setting unchanged. afebrile. 04/10 Patient remains sedated and intubated and on Nimbex. On PRVC/AC, RR 15, TV 500, PEEP: 15, FIO2 90%, IT:1.65, on Flolan drip. Remains on Rotoprone bed. 04/11 minimal improvement in oxygenation, FiO2 now at 75 - continue to improve oxygenation, worsening CXR 04/13/10 continue to improve oxygenation DC'd prone position last night 04/14- improving oxygenation, Nimbex discontinued as well as prone position 04/16 Patient is sedated with Versed and Fentanyl and intubated. Off rotoprone bed. On PRVC/AC RR 15, TV 550, IT 1.65, PEEP:15, FIO2 50%. 04/17 Patient remains sedated with Versed and Fentanyl. Afebrile, tolerating tube feeds 04/18 No acute events overnight Sedated and intubated. Afebrile. On PRVC/AC RR 15 , TV 550, IT 1.65, PEEP:15, FIO2 60% 04/19: Spiking fever up to 101, pancultured and 1 dose of vancomycin given by ID. On weaning doses of Flolan. FiO2 down to 50% I have reduced PEEP to 14. Remains critically ill 04/20: No fever. Sputum cx with Staph -S pending. Fio2 50% PEEP remains at 14. TV increased to 650 to improve lung recruitment. On weaning dose of Flolan-DC after current bag 04/21:Afebrile. Hyponatremia resolving, the patient will be placed on free water flushes. 04/22:The patient had an episode of acute desaturation requiring FiO2 increased to 90%. Stat chest x-ray stat ABG aggressive pulmonary toileting and suctioning , resolution of symptoms FiO2 now 55%. ABGs within normal limits. 04/23: Tmax 99.5. Currently afebrile. O2 sat 50%. PEEP down to 13. One small bowel movement overnight. 04/24: Currently afebrile. O2 sat 45%. PEEP to 12. One BM. Tolerating tube feeds. 04/25: Afebrile. PEEP down to 11. Positive BM. Tolerating tube feeds. Awake on the ventilator with eyes open. 04/26: Afebrile. PEEP down to 10. Time to feeding. Awake and alert eyes open. 04/27: Suspected fever overnight. One bowel movement documented. Will decreased PEEP to 9. Awake and alert and follows commands. 04/28: Tmax 99.3. Currently afebrile. FiO2 increased to 70%. PEEP to 10. Awake and does follow commands. Positive BM 4 yesterday. Subjective 04/29: FiO2 down to 55%. Peak systolic 10. Awake and does follow commands. Positive BM 1 yesterday. Tolerating tube feeding. Objective Vital Signs Date Time Temp Pulse Resp B/P Pulse Ox O2 Delivery O2 Flow Rate FiO2 04/30/16 12:00 68 04/30/16 12:00 55 04/30/16 12:00 98.5 18 108/81 96 Intake and Output 04/29/16 04/29/16 04/30/16 08:00 16:00 00:00 Intake Total 1394 ml 1491 ml 554 ml Output Total 300 ml 800 ml 450 ml Balance 1094 ml 691 ml 104 ml Result Diagram: 04/30/16 0300 04/30/16 0300 Imaging Last Impressions Chest X-Ray 04/27/16 0000 Signed Impressions: Service Date/Time: Wednesday, April 27, 2016 13:37 - CONCLUSION: 1. Under aerated. 2. Support apparatus in good position. Bear Barton MD FACR Abdomen X-Ray 03/31/16 0000 Signed Impressions: Service Date/Time: Thursday, March 31, 2016 09:58 - CONCLUSION: Benign abdomen. Rodrigo Martinez MD Chest CT 03/28/16 0836 Signed Impressions: Service Date/Time: Monday, March 28, 2016 09:57 - CONCLUSION: Development areas of air bronchograms and consolidation more prominent in the right and left posterior basilar segments of the lower lobes. ET tube above the chanelle. Bernard Hartman MD CT Angiography 03/24/16 1121 Signed Impressions: Service Date/Time: Thursday, March 24, 2016 12:47 - CONCLUSION: 1. There is respiratory motion artifact but no PE is identified through most of the segmental level pulmonary arteries. 2. Mildly enlarged main pulmonary artery may indicate pulmonary arterial hypertension. 3. 11 mm left lower lobe noncalcified pulmonary nodule. Suggest correlation with any prior imaging studies that could confirm longer-term stability. If none are available consider short-term followup noncontrast chest CT in approximately 3 months. Ubaldo Rodas MD Objective Remarks GENERAL: 50-year-old male, critically ill. Orally intubated on mechanical ventilation, on sedation SKIN: Seborrheic dermatitis of the face HEAD: Atraumatic. Normocephalic. EYES: Pupils equal round and slightly reactive about 3 millimeters bilaterally. ENT: NG tube in place. Orotracheally intubated NECK: Very large neck. Trachea midline. CARDIOVASCULAR: Distant heart sounds. RRR. S1, S2. No S4. Without murmur RESPIRATORY: Orally intubated on mechanical ventilation, Breath sounds equal bilaterally. Diminished breath sounds due to body habitus. GASTROINTESTINAL: Abdomen soft, obese, nontender. Severe central obesity MUSCULOSKELETAL: Extremities with trace to 1+ nonpitting bilateral lower extremity edema. Left antecubital PICC line is clean dry and intact NEUROLOGICAL: Arousable on the ventilator. Follows commands. Wiggles toes. Squeezes hands Date of Insertion: Apr 02, 2016 Line: PICC Side: Left Location: Antecubital A/P Assessment and Plan Neuro/Psych: Likely SERENITY Toxic metabolic encephalopathy Currently On Fentanyl drip at 150 mcg an hour and Versed infusion 5 mg an hour for sedation and analgesia while intubated Continue oxycodone 5 every 6 and attempt to wean down analgesic sedation Goal of RASS -2 Daily sedation vacation when appropriate PEEP< 8, FIO2.50 Acetaminophen for fever Pulm: Acute hypoxemic respiratory failure JACOB [facility] History of staph aureus pneumonia/HCAP ARDS On PRVC/AC RR 15, TV 650, IT:1.65, PEEP:10, FIO2 55% Continue with vent support keep sat >92%. Bronchodilators every 6 hours and every 2 hours as needed ICU vent bundle. Flolan off since 04/21 on Solumedrol 40mg daily Advanced ET tube 04/24 from 19-22 cm Plan for tracheostomy 05/[address] Rosenberg CV: Monitor HR and BP keep MAP>65mmHg 2-D echo 03/26 EF 60%. No regional wall motion abnormality. Mild MR/TR. /FEN: Hypokalemia Hypernatremia Monitor renal function, I/O's, electrolytes replacement per protocol. Currently holding diuretics. Will likely need to restart GI: Constipation Moderate protein calorie malnutrition On Glucerna 1.5@45ml/hr with 1 scoop whey protein 3 times a day, Protonix 40mg daily On Reglan 10mg Q8, Senna and Colace twice a day.. Continue MiraLAX twice a day and lactulose 4 times a day. ID: Staph aureus pneumonia Possible staph bacteremia Pertinent culture 04/27 - pansensitive staph aureus 04/27 blood cultures 2 negative 04/25 - urine -no growth 04/19 - blood cultures 2 out of 4 - staph aureus 04/19 - sputum - staph aureus 04/08 - sputum - staph aureus 04/03 - sputum - staph aureus 03/30 - sputum- -staph aureus 03/27 - sputum - staph aureus 03/26 - blood - staph hominis On vancomycin 2 g IV every 12 are since 04/19 - 04/29 Azactam 04/27 through 04/29 Currently on clindamycin day #1 Heme: Leukocytosis Monitor CBC/coags Endo: Diabetes mellitus SSI for glycemic control (high scale) 30 units sliding scale insulin scale insulin in the past 24 hours, Levemir insulin 70 U Q12 MSK Morbid obesity Weight loss encouraged DVT, GI prophylaxis -Bilateral lower extremity SCDs. IV Protonix 40 mg daily. Lovenox 40 mg sq BID LINES: -Left upper extremity PICC line placed 04/15 Critical Care: The total care time was 35 minutes. Time to perform other separately billable procedures was not included in the critical care time. Lourdes Goel MD Apr 30, 2016 13:33
--- NOTE | 2016-04-30 14:47 | HHI.CCPN ---
Subjective Remarks/Hospital Course Patient is a 50 years old obese male with past medical history significant for undiagnosed sleep apnea, super morbid obesity, type 2 diabetes was brought to the emergency department on 03/24/16 after feeling light headed and dizzy. On presentation here was found to be hypoxemic and ABG showed severe hypoxemia and hypercarbia. For a recent driving physical he was diagnosed with low oxygen saturations. Patient's oxygen saturation the ED was in the low 80s, which was confirmed on ABG with a oxygen saturation of 78% and PO2 of 46. CTA negative for PE. Patient was initiated on BiPAP therapy with consult to pulmonary Dr. Crane. His oxygenation improved but he continued to be hypercapnic. Today a.m. on nasal cannula his pH was 7.26 and PCO2 was increased at 99, patient was somnolent was placed back on BiPAP and repeat ABG at noon showed pH 7.26 PCO2 98 and pO2 70. This was on 16 BiPAP with FiO2 50%. Critical care was consulted. On my evaluation patient is somnolent but wakes up easily. I reduced the PEEP on BiPAP from 12-7 to facilitate better ventilation. A repeat ANG showed only minimal improvement, so decision made to intubate patient. Glidescope with #4 blade was used. Only propofol was used for induction. Initially I had a Grade 1-2 view, but I was unable to pass tube through the vocal cord to trachea in two attempts. Tube slipped out of Laryngeal opening both times. Dr Garrett intubated patient after NM paralysis with succinylcholine. Post intubation ABG showed improvement in hypercapnia and oxygenation. 03/27/16: Patient remains intubated heavily sedated with propofol and fentanyl. Remained severely hypoxemic on 100% FiO2, PEEP12, chest x-ray shows bibasilar infiltrates. Flagyl added. We'll give 1 dose of vancomycin-Adjust antibiotics according to cultures. Patient super morbid obesity may prevent Prone therapy 03/28: Remains hypoxic but ABG shows marginal improvement in oxygenation. WBC increasing 20.1 today. Start vancomycin scheduled. 03/29: Oxygenation is slightly improved. FiO2 reduced to 50% today. Chest x- ray remains unchanged. On sedation hold patient does wake up and follow commands. WBC count remains at 20 03/30 No acute events overnight. Sedated with Diprivan and Fentanyl. Had T: 100.1 at 4 am. WBC trending down 15.9 today from 20. 03/31 Patient remains sedated with Diprivan, Fentanyl and intubated. Tmax 100.1. Patient required increase O2 overnight now on ACV with PEEP: 12 and FIO2 70%. 04/01: Tmax 99.7. No bowel movement since admission. Patient has bowel sounds. Arousable on the ventilator. We'll attempt prone the patient paralyzed to increase oxygenation status. 04/02: MAXIMUM TEMPERATURE 100.9. Currently 97.7. 5 10 cc stools overnight. Placed on Roto prone yesterday. Saturations currently 94% on Flolan. Diuresed overnight. Creatinine still within normal limits. 04/03: Tmax 101. Currently 99.1. Positive BM. Did not tolerate not being unprone this AM. Saturations much improved prone. Tolerating tube feeding. 04/04: Tmax 100.8. Currently 98.8. +2 L past 24 hours. Attempt to on prone today. Positive BM. C. difficile negative. Remains paralyzed. 04/05: Remains sedated, orally intubated on neuromuscular blockade on mechanical ventilation. Remains on Rota prone bed. On insulin drip. 04/06: Remains sedated, orally intubated on neuromuscular blockade, on mechanical ventilation. Remains on Rota prone bed. Insulin drip continues. 04/07 Patient remains on Rotoprone bed sedated with Diprivan, Versed, Fentanyl in addition patient is on Nimbex. Afebrile. On Insulin drip 5u/hr. 04/08 Patient remains sedated and intubated and on Nimbex. Off insulin drip. On PRVC/AC with RR 15, TV 550, IT: 1.65, PEEP: 15 and FIO2 100%. T: 100.2 at 4 am. 04/09 Patient is sedated, intubated and remains on neuromuscular blockade. Vent setting unchanged. afebrile. 04/10 Patient remains sedated and intubated and on Nimbex. On PRVC/AC, RR 15, TV 500, PEEP: 15, FIO2 90%, IT:1.65, on Flolan drip. Remains on Rotoprone bed. 04/11 minimal improvement in oxygenation, FiO2 now at 75 - continue to improve oxygenation, worsening CXR 04/13/10 continue to improve oxygenation DC'd prone position last night 04/14- improving oxygenation, Nimbex discontinued as well as prone position 04/16 Patient is sedated with Versed and Fentanyl and intubated. Off rotoprone bed. On PRVC/AC RR 15, TV 550, IT 1.65, PEEP:15, FIO2 50%. 04/17 Patient remains sedated with Versed and Fentanyl. Afebrile, tolerating tube feeds 04/18 No acute events overnight Sedated and intubated. Afebrile. On PRVC/AC RR 15 , TV 550, IT 1.65, PEEP:15, FIO2 60% 04/19: Spiking fever up to 101, pancultured and 1 dose of vancomycin given by ID. On weaning doses of Flolan. FiO2 down to 50% I have reduced PEEP to 14. Remains critically ill 04/20: No fever. Sputum cx with Staph -S pending. Fio2 50% PEEP remains at 14. TV increased to 650 to improve lung recruitment. On weaning dose of Flolan-DC after current bag 04/21:Afebrile. Hyponatremia resolving, the patient will be placed on free water flushes. 04/22:The patient had an episode of acute desaturation requiring FiO2 increased to 90%. Stat chest x-ray stat ABG aggressive pulmonary toileting and suctioning , resolution of symptoms FiO2 now 55%. ABGs within normal limits. 04/23: Tmax 99.5. Currently afebrile. O2 sat 50%. PEEP down to 13. One small bowel movement overnight. 04/24: Currently afebrile. O2 sat 45%. PEEP to 12. One BM. Tolerating tube feeds. 04/25: Afebrile. PEEP down to 11. Positive BM. Tolerating tube feeds. Awake on the ventilator with eyes open. 04/26: Afebrile. PEEP down to 10. Time to feeding. Awake and alert eyes open. 04/27: Suspected fever overnight. One bowel movement documented. Will decreased PEEP to 9. Awake and alert and follows commands. 04/28: Tmax 99.3. Currently afebrile. FiO2 increased to 70%. PEEP to 10. Awake and does follow commands. Positive BM 4 yesterday. Subjective 04/29: FiO2 down to 55%. Peak systolic 10. Awake and does follow commands. Positive BM 1 yesterday. Tolerating tube feeding. 04/30: No acute issues overnight . The patient continues to be sedated with plans for tracheostomy in the OR today. The patient follows commands when on sedation vacation. Objective Vital Signs Date Time Temp Pulse Resp B/P Pulse Ox O2 Delivery O2 Flow Rate FiO2 04/30/16 14:16 100 100 04/30/16 12:00 68 04/30/16 12:00 98.5 18 108/81 Intake and Output 04/29/16 04/29/16 04/30/16 08:00 16:00 00:00 Intake Total 1394 ml 1491 ml 554 ml Output Total 300 ml 800 ml 450 ml Balance 1094 ml 691 ml 104 ml Result Diagram: 04/30/16 0300 04/30/16 0300 Imaging Last Impressions Chest X-Ray 04/27/16 0000 Signed Impressions: Service Date/Time: Wednesday, April 27, 2016 13:37 - CONCLUSION: 1. Under aerated. 2. Support apparatus in good position. Bear Barton MD FACR Abdomen X-Ray 03/31/16 0000 Signed Impressions: Service Date/Time: Thursday, March 31, 2016 09:58 - CONCLUSION: Benign abdomen. Rodrigo Martinez MD Chest CT 03/28/16 0836 Signed Impressions: Service Date/Time: Monday, March 28, 2016 09:57 - CONCLUSION: Development areas of air bronchograms and consolidation more prominent in the right and left posterior basilar segments of the lower lobes. ET tube above the chanelle. Bernard Hartman MD CT Angiography 03/24/16 1121 Signed Impressions: Service Date/Time: Thursday, March 24, 2016 12:47 - CONCLUSION: 1. There is respiratory motion artifact but no PE is identified through most of the segmental level pulmonary arteries. 2. Mildly enlarged main pulmonary artery may indicate pulmonary arterial hypertension. 3. 11 mm left lower lobe noncalcified pulmonary nodule. Suggest correlation with any prior imaging studies that could confirm longer-term stability. If none are available consider short-term followup noncontrast chest CT in approximately 3 months. Ubaldo Rodas MD Objective Remarks GENERAL: 50-year-old male, critically ill. Orally intubated on mechanical ventilation, on sedation SKIN: Seborrheic dermatitis of the face HEAD: Atraumatic. Normocephalic. EYES: Pupils equal round and slightly reactive about 3 millimeters bilaterally. ENT: NG tube in place. Orotracheally intubated NECK: Very large neck. Trachea midline. CARDIOVASCULAR: Distant heart sounds. RRR. S1, S2. No S4. Without murmur RESPIRATORY: Orally intubated on mechanical ventilation, Breath sounds equal bilaterally. Diminished breath sounds due to body habitus. GASTROINTESTINAL: Abdomen soft, obese, nontender. Severe central obesity MUSCULOSKELETAL: Extremities with trace to 1+ nonpitting bilateral lower extremity edema. Left antecubital PICC line is clean dry and intact NEUROLOGICAL: Arousable on the ventilator. Follows commands. Wiggles toes. Squeezes hands Urinary Catheter: Yes Becker insert reason: Measure Accurate Output Date of Insertion: Apr 02, 2016 Line: PICC Side: Left Location: Antecubital A/P Assessment and Plan Neuro/Psych: Likely SERENITY Toxic metabolic encephalopathy Currently On Fentanyl drip at 200 mcg an hour and Versed infusion 5 mg an hour for sedation and analgesia while intubated Continue oxycodone 5/325mg every 6 and attempt to wean down analgesic sedation post tracheostomy Goal of RASS -2 Daily sedation vacation when appropriate PEEP< 8, FIO2.50 Acetaminophen for fever Pulm: Acute hypoxemic respiratory failure JACOB [facility] History of staph aureus pneumonia/HCAP ARDS On PRVC/AC RR 15, TV 650, IT:1.65, PEEP:10, FIO2 55% Continue with vent support keep sat >92%. Bronchodilators every 6 hours and every 2 hours as needed ICU vent bundle. Flolan off since 04/21 on Solumedrol 40mg daily Advanced ET tube 04/24 from 19-22 cm Plan for tracheostomy 05/[address] Rosenberg CV: Monitor HR and BP keep MAP>65mmHg 2-D echo 03/26 EF 60%. No regional wall motion abnormality. Mild MR/TR. /FEN: Hypokalemia Hypernatremia Monitor renal function, I/O's, electrolytes replacement per protocol. Currently holding diuretics. Possible need to restart GI: Constipation Moderate protein calorie malnutrition On Glucerna 1.5@45ml/hr with 1 scoop whey protein 3 times a day, Protonix 40mg daily On Reglan 10mg Q8, Senna and Colace twice a day.. Continue MiraLAX twice a day and lactulose 4 times a day. ID: Staph aureus pneumonia Possible staph bacteremia Pertinent culture 04/27 - pansensitive staph aureus 04/27 blood cultures 2 negative 04/25 - urine -no growth 04/19 - blood cultures 2 out of 4 - staph aureus 04/19 - sputum - staph aureus 04/08 - sputum - staph aureus 04/03 - sputum - staph aureus 03/30 - sputum- -staph aureus 03/27 - sputum - staph aureus 03/26 - blood - staph hominis On vancomycin 2 g IV every 12 are since 04/19 - 04/29 Azactam 04/27 through 04/29 Currently on clindamycin day #2 Heme: Leukocytosis Monitor CBC/coags Monitor WBC Endo: Diabetes mellitus SSI for glycemic control (high scale) 30 units sliding scale insulin scale insulin in the past 24 hours, Levemir insulin 70 U Q12 MSK Morbid obesity Weight loss encouraged DVT, GI prophylaxis -Bilateral lower extremity SCDs. IV Protonix 40 mg daily. Lovenox 40 mg sq BID LINES: -Left upper extremity PICC line placed 04/15 Critical Care: The total care time was 31 minutes. Time to perform other separately billable procedures was not included in the critical care time. Physician Lourdes Josue MD Apr 30, 2016 14:47
[2016-04-30] MEDS ORDERED: PROPOFOL 200 MG/20 ML AMP IV ONE (15:12)
[2016-04-30] MEDS ORDERED: NORMOSOL R INJ 2,000 ML IV ONE (15:12)
--- NOTE | 2016-04-30 15:16 | HHI.PR ---
Subjective Remarks ON THE VENT SEDATED FIO2 AT 80% Objective Last Impressions Chest X-Ray 04/30/16 0600 Signed Impressions: Service Date/Time: Saturday, April 30, 2016 04:30 - CONCLUSION: 1. Support apparatus in satisfactory position. Bilateral mostly basilar airspace disease similar to prior examination. Kyle Lorenzo MD Abdomen X-Ray 03/31/16 0000 Signed Impressions: Service Date/Time: Thursday, March 31, 2016 09:58 - CONCLUSION: Benign abdomen. Rodrigo Martinez MD Chest CT 03/28/16 0836 Signed Impressions: Service Date/Time: Monday, March 28, 2016 09:57 - CONCLUSION: Development areas of air bronchograms and consolidation more prominent in the right and left posterior basilar segments of the lower lobes. ET tube above the chanelle. Bernard Hartman MD CT Angiography 03/24/16 1121 Signed Impressions: Service Date/Time: Thursday, March 24, 2016 12:47 - CONCLUSION: 1. There is respiratory motion artifact but no PE is identified through most of the segmental level pulmonary arteries. 2. Mildly enlarged main pulmonary artery may indicate pulmonary arterial hypertension. 3. 11 mm left lower lobe noncalcified pulmonary nodule. Suggest correlation with any prior imaging studies that could confirm longer-term stability. If none are available consider short-term followup noncontrast chest CT in approximately 3 months. Ubaldo Rodas MD Vital Signs Date Time Temp Pulse Resp B/P Pulse Ox O2 Delivery O2 Flow Rate FiO2 04/30/16 14:16 100 100 04/30/16 12:00 68 04/30/16 12:00 55 04/30/16 12:00 98.5 85 18 108/81 96 04/30/16 11:22 93 53 04/30/16 10:00 98 04/30/16 08:23 97 55 04/30/16 08:00 98.2 78 18 117/74 96 04/30/16 08:00 98 04/30/16 08:00 55 04/30/16 06:00 84 04/30/16 04:38 96 55 04/30/16 04:00 74 04/30/16 04:00 98.0 74 20 103/64 96 04/30/16 04:00 60 04/30/16 02:00 75 04/30/16 01:18 93 55 04/30/16 00:00 84 04/30/16 00:00 60 04/30/16 00:00 98.3 84 18 104/61 94 04/29/16 22:00 99 04/29/16 20:04 94 55 04/29/16 20:00 76 04/29/16 20:00 60 04/29/16 20:00 98.5 76 20 97/59 93 04/29/16 18:00 77 04/29/16 16:00 103 04/29/16 16:00 60 04/29/16 16:00 98.2 101 18 115/67 93 I/O 04/29/16 04/29/16 04/29/16 04/30/16 04/30/16 04/30/16 07:00 15:00 23:00 07:00 15:00 23:00 Intake Total 1394 ml 1491 ml 554 ml 332 ml Output Total 300 ml 800 ml 450 ml 350 ml Balance 1094 ml 691 ml 104 ml -18 ml IV Total 870 ml 674 ml 236 ml 332 ml Tube Feeding 324 ml 417 ml 288 ml 0 ml Other 200 ml 400 ml 30 ml 0 ml Output Urine Total 300 ml 800 ml 450 ml 350 ml # Bowel Movements 1 1 0 0 Result Diagram: 04/30/16 0300 04/30/16 0300 Objective Remarks GENERAL: SKIN: Warm and dry. HEAD: Atraumatic. Normocephalic. EYES: Pupils equal and round. No scleral icterus. No injection or drainage. ENT: No nasal bleeding or discharge. Mucous membranes pink and moist. NECK: Trachea midline. No JVD. CARDIOVASCULAR: Regular rate and rhythm. RESPIRATORY: No accessory muscle use. Clear to auscultation. Breath sounds equal bilaterally. GASTROINTESTINAL: Abdomen soft, non-tender, nondistended. Hepatic and splenic margins not palpable. MUSCULOSKELETAL: Extremities without clubbing, cyanosis, or edema. No obvious deformities. NEUROLOGICAL: Awake and alert. No obvious cranial nerve deficits. Motor grossly within normal limits. Five out of 5 muscle strength in the arms and legs. Normal speech. PSYCHIATRIC: Appropriate mood and affect; insight and judgment normal. Assessment and Plan Assessment and Plan RESPIRATORY FAILURE SEPSIS ARDS JACOB/CSA PLAN VENT SUPPORT FIO2 0.5 PULM TOILET WEAN TOLERATED. CHECK ABG , CXRAY FOR TRACHEOSTOMY TODAY Orlando,Orlando Bhandari MD Apr 30, 2016 15:16
[2016-04-30] MEDS ORDERED: fentaNYL CITRATE 250 MCG/5 ML AMP ONE (15:28)
--- NOTE | 2016-04-30 16:54 | RADRPT ---
EXAM DATE/TIME: 04/30/2016 16:21 [facility] COMPARISON: CHEST SINGLE AP, April 30, 2016, 4:30. INDICATIONS : post tracheostomy MEDICAL HISTORY : Diabetes mellitus type II. SURGICAL HISTORY : None. ENCOUNTER: Subsequent ACUITY: 1 month PAIN SCORE: Non-responsive. LOCATION: Bilateral chest FINDINGS: Trach tube and PICC line are in good position. The heart is enlarged. Mild interstitial edema is pr esent. The lungs are underaerated. CONCLUSION: Trach tube in good position. Bear Barton MD FACR on April 30, 2016 at 16:51 Board Certified Radiologist. This report was verified electronically.
[2016-04-30] MEDS: PANTOPRAZOLE SODIUM 40 MG VIAL IV PUSH SCH (18:00)
[2016-04-30 18:33] LABS: AUTOMATED NEUTROPHIL # 9.5 TH/MM3 (1.8-7.7); BASOPHIL % 0.1 % (0.0-2.0); EOSINOPHIL % 0.1 % (0.0-4.0); HEMATOCRIT 32.3 % (39.0-51.0); LYMPHOCYTE # 0.9 TH/MM3 (1.0-4.8); MEAN CELL VOLUME 83.5 FL (80.0-100.0); MEAN CORPUSCULAR HEMOGLOBIN 27.1 PG (27.0-34.0); MEAN CORPUSCULAR HGB CONC 32.4 % (32.0-36.0); NEUT % 87.8 % (16.0-70.0); PLATELET COUNT 189 TH/MM3 (150-450); RED BLOOD COUNT 3.87 MIL/MM3 (4.50-5.90); RED CELL DISTRIBUTION WIDTH 15.6 % (11.6-17.2); WHITE BLOOD COUNT 10.8 TH/MM3 (4.0-11.0)
[2016-04-30 18:42] LABS: HEMO FLAGS AUTO DIFF
[2016-04-30 18:45] LABS: BICARBONATE 24.5 MEQ/L (21.0-32.0); MAGNESIUM 2.1 MG/DL (1.5-2.5); POTASSIUM 3.6 MEQ/L (3.5-5.1)
[2016-04-30 18:58] LABS: CALCIUM-PROTEIN CORRECTED 8.2 MG/DL (8.5-10.1)
[2016-04-30 19:08] LABS: BANDS 5 % (0-6); MYELOCYTES 1 % (0-0); NEUTROPHIL # MANUAL DIFF 9.9 TH/MM3 (1.8-7.7); POLYS (SEG NEUTROPHILS) 86 % (16-70); WBC DIFF SAMPLE 100
[2016-04-30 19:09] LABS: PLATELET MORPHOLOGY NORMAL (NORMAL)
[2016-04-30 19:10] LABS: PLATELET ESTIMATE SMEAR NORMAL (NORMAL); SCAN/DIFF FINAL DIFF MANUAL
[2016-05-01] VITALS (20 sets, daily range): BP systolic 104–139; BP diastolic 57–84; PULSE 66–105; RESP 15–20; TEMP 98–98.6; O2SAT 93–98
[2016-05-01] MEDS: ARTIFICIAL TEARS OPTH SOLN 15 ML BTL EACH EYE SCH ×6 (02:00→20:54)
[2016-05-01] MEDS: RESP: ALBUTEROL 2.5 MG/IPRATROPIUM 0.5 MG NEB (SCH) NEB ×6 (04:18→23:43)
[2016-05-01] MEDS: FREE WATER G-TUBE SCH ×5 (06:00→20:56)
[2016-05-01] MEDS: INSULIN NovoLIN REGULAR SUPPLEMENTAL SCALE SQ SCH ×4 (06:00→18:15)
[2016-05-01] MEDS: CLINDAMYCIN INJ 600 MG in SODIUM CHLORIDE 0.9% INJ 100 ML IV SCH ×3 (06:43→20:52)
[2016-05-01] MEDS: ENOXAPARIN SODIUM 40 MG/0.4 ML SYRINGE SQ SCH ×2 (06:44→18:13)
[2016-05-01] MEDS: METOCLOPRAMIDE HCL 10 MG/2 ML VIAL IV PUSH SCH ×3 (06:44→20:54)
[2016-05-01] MEDS: fentaNYL 2,500 MCG/NS 250 ML IV SCH ×3 (06:47→23:57)
[2016-05-01] MEDS: MIDAZOLAM 100 MG/ML INJ 100 ML IV SCH ×2 (06:47→14:25)
--- NOTE | 2016-05-01 06:58 | RADRPT ---
EXAM DATE/TIME: 05/01/2016 05:47 [facility] COMPARISON: CHEST SINGLE AP, April 30, 2016, 16:21. INDICATIONS : Respiratory failure. MEDICAL HISTORY : Diabetes mellitus type II. SURGICAL HISTORY : None. ENCOUNTER: Subsequent ACUITY: 1 month PAIN SCORE: Non-responsive. LOCATION: Bilateral chest FINDINGS: A single view of the chest demonstrates tracheostomy in satisfactory position. Left-sided PICC line i n superior vena cava. Bilateral mostly basilar airspace disease. No pneumothorax. Cardiomegaly. CONCLUSION: 1. Support apparatus in satisfactory position. Mild basilar airspace disease. No significant change c ompared with April 30. Kyle Lorenzo MD on May 01, 2016 at 6:55 Board Certified Radiologist. This report was verified electronically.
[2016-05-01] MEDS: RESP: SODIUM CHLORIDE 3% 4 ML NEB NEB SCH (07:21)
[2016-05-01 08:11] LABS: HEMATOCRIT 35.2 % (39.0-51.0); MEAN CELL VOLUME 83.3 FL (80.0-100.0); MEAN CORPUSCULAR HEMOGLOBIN 26.4 PG (27.0-34.0); MEAN CORPUSCULAR HGB CONC 31.7 % (32.0-36.0); PLATELET COUNT 204 TH/MM3 (150-450); RED BLOOD COUNT 4.23 MIL/MM3 (4.50-5.90); RED CELL DISTRIBUTION WIDTH 16.5 % (11.6-17.2); REVIEW FLAG FINAL; WHITE BLOOD COUNT 11.7 TH/MM3 (4.0-11.0)
[2016-05-01] MEDS: methylPREDNISolone SOD SUCC 40 MG/1 ML VIAL IV PUSH SCH (08:30)
[2016-05-01 08:42] LABS: BICARBONATE 24.4 MEQ/L (21.0-32.0); MAGNESIUM 2.2 MG/DL (1.5-2.5); POTASSIUM 3.9 MEQ/L (3.5-5.1)
[2016-05-01] MEDS: INSULIN DETEMIR 100 UNITS/ML VIAL SQ SCH ×2 (09:00→20:55)
[2016-05-01] MEDS: SENNOSIDES SYRUP 8.8 MG/5 ML CUP PO/TUBE SCH ×2 (09:00→20:55)
[2016-05-01] MEDS: LACTOBACILLUS ACIDOPHILUS TAB PO SCH ×3 (09:00→18:00)
[2016-05-01] MEDS: DOCUSATE SODIUM 100 MG/10 ML UDC PO SCH ×2 (09:00→20:55)
[2016-05-01] MEDS: BENEPROTEIN POWDER 1 PACK G-TUBE SCH ×3 (09:00→18:00)
[2016-05-01] MEDS: POLYETHYLENE GLYCOL 17 GM PKG PO SCH ×2 (09:00→20:55)
[2016-05-01] MEDS: SODIUM CHLORIDE 0.9% FLUSH 5 ML FLUSH IVF SCH (09:00)
[2016-05-01] MEDS: NYSTATIN 100,000 U/GM PWD 15 GM BTL TOPICAL SCH ×2 (09:02→20:54)
[2016-05-01] MEDS: BETAMETHASONE/CLOTRIMAZOLE CREAM 15 GM TOPICAL SCH ×2 (09:02→20:54)
[2016-05-01] MEDS: ARTIFICIAL TEARS OPTH OINT 3.5 APPLIC/3.5 GM TUBO EACH EYE SCH ×2 (09:02→20:53)
--- NOTE | 2016-05-01 09:05 | HHI.PR ---
Subjective Remarks ON THE VENT SEDATED FIO2 AT 50% Objective Vital Signs Date Time Temp Pulse Resp B/P Pulse Ox O2 Delivery O2 Flow Rate FiO2 05/01/16 07:22 95 55 05/01/16 06:00 96 05/01/16 05:00 98.2 78 15 104/64 96 05/01/16 05:00 55 05/01/16 04:18 98 55 05/01/16 04:00 78 05/01/16 02:00 74 05/01/16 01:13 95 55 05/01/16 00:00 98.0 71 15 104/60 96 05/01/16 00:00 55 05/01/16 00:00 68 04/30/16 22:00 72 04/30/16 20:06 96 55 04/30/16 20:00 98.5 68 15 103/62 96 04/30/16 20:00 55 04/30/16 20:00 68 04/30/16 18:00 74 04/30/16 16:59 92 55 04/30/16 16:00 55 04/30/16 16:00 98.4 84 22 121/67 96 04/30/16 16:00 74 04/30/16 14:16 100 100 04/30/16 14:00 72 04/30/16 12:00 68 04/30/16 12:00 55 04/30/16 12:00 98.5 85 18 108/81 96 04/30/16 11:22 93 53 04/30/16 10:00 98 I/O 04/30/16 04/30/16 04/30/16 05/01/16 05/01/16 05/01/16 07:00 15:00 23:00 07:00 15:00 23:00 Intake Total 332 ml 751 ml 320 ml 405 ml Output Total 350 ml 450 ml 600 ml 300 ml Balance -18 ml 301 ml -280 ml 105 ml IV Total 332 ml 751 ml 320 ml 405 ml Tube Feeding 0 ml 0 ml 0 ml Other 0 ml Output Urine Total 350 ml 450 ml 600 ml 300 ml # Bowel Movements 0 0 0 Result Diagram: 05/01/16 0750 05/01/16 0750 Objective Remarks GENERAL: SKIN: Warm and dry. HEAD: Atraumatic. Normocephalic. EYES: Pupils equal and round. No scleral icterus. No injection or drainage. ENT: No nasal bleeding or discharge. Mucous membranes pink and moist. NECK: Trachea midline. No JVD. CARDIOVASCULAR: Regular rate and rhythm. RESPIRATORY: No accessory muscle use. Clear to auscultation. Breath sounds equal bilaterally. GASTROINTESTINAL: Abdomen soft, non-tender, nondistended. Hepatic and splenic margins not palpable. MUSCULOSKELETAL: Extremities without clubbing, cyanosis, or edema. No obvious deformities. NEUROLOGICAL: Awake and alert. No obvious cranial nerve deficits. Motor grossly within normal limits. Five out of 5 muscle strength in the arms and legs. Normal speech. PSYCHIATRIC: Appropriate mood and affect; insight and judgment normal. Assessment and Plan Assessment and Plan RESPIRATORY FAILURE SEPSIS ARDS JACOB/CSA PLAN VENT SUPPORT FIO2 0.5 PULM TOILET WEAN TOLERATED. CHECK ABG , CXRAY FOR TRACHEOSTOMY TODAY Orlando Perry MD May 01, 2016 09:05
--- NOTE | 2016-05-01 09:46 | MP ---
cc: RENETTA STOKES MD DATE OF SURGERY 04/30/2016 PREOPERATIVE DIAGNOSES 1. Respiratory failure. 2. Morbid obesity. 3. Pulmonary hypertension. POSTOPERATIVE DIAGNOSES 1. Respiratory failure. 2. Morbid obesity. 3. Pulmonary hypertension. OPERATIVE PROCEDURE Open and Blue Rhino tracheostomy hybrid placement. SURGEON MD Eric ANESTHESIA General. ESTIMATED BLOOD LOSS 5 cc. PROCEDURE The patient prepped and draped in the usual fashion. The neck is extremely short and obese and hence the procedure is done in the operating room. Incision is made in the midline neck vertically, then deepened down to the trachea retracting the strap muscles laterally. Once the trachea is exposed under direct vision the procedure is now continued like a Blue Rhino tracheostomy, needle inserted in the trachea and through the needle a J-wire was passed down into the trachea under bronchoscopy vision. Over the guidewire the small dilator and the large Blue Rhino dilators are placed. Once the trachea is dilated day, an 8 Shiley tracheostomy cannula is placed, sutured in place with 2-0 Prolene and then secured with a band around the neck. Once connected to the respirator, the patient has immediately end-tidal CO2 and position is checked. The patient is now bronchoscoped and all the secretions are cleared. He is transferred to ICU in stable condition. Renetta Stokes SJ/SSB /4:56 PM /9:41 AM
--- NOTE | 2016-05-01 11:02 | HHI.IDPN ---
Subjective Subjective Remarks Notes reviewed. Temps ok S/P trach 04/30 FiO2 55%, PEEP 10 Awake, wants something to eat is a 50 years old obese male with past medical history significant for undiagnosed sleep apnea, super morbid obesity, type 2 diabetes was brought to the emergency department on 03/24/16. ID following for MSSA pneumonia. Antibiotics Clindamycin Lines PICC 04/15 Past Medical History Reviewed Allergies: Coded Allergies: Penicillin (Verified Allergy, Severe, Swelling, 03/24/16) Tetanus Toxoid (Verified Allergy, Unknown, Swelling, 03/24/16) Objective . Vital Signs Date Time Temp Pulse Resp B/P Pulse Ox O2 Delivery O2 Flow Rate FiO2 05/01/16 07:22 95 55 05/01/16 06:00 96 05/01/16 05:00 98.2 78 15 104/64 96 05/01/16 05:00 55 05/01/16 04:18 98 55 05/01/16 04:00 78 05/01/16 02:00 74 05/01/16 01:13 95 55 05/01/16 00:00 98.0 71 15 104/60 96 05/01/16 00:00 55 05/01/16 00:00 68 04/30/16 22:00 72 04/30/16 20:06 96 55 04/30/16 20:00 98.5 68 15 103/62 96 04/30/16 20:00 55 04/30/16 20:00 68 04/30/16 18:00 74 04/30/16 16:59 92 55 04/30/16 16:00 55 04/30/16 16:00 98.4 84 22 121/67 96 04/30/16 16:00 74 04/30/16 14:16 100 100 04/30/16 14:00 72 04/30/16 12:00 68 04/30/16 12:00 55 04/30/16 12:00 98.5 85 18 108/81 96 04/30/16 11:22 93 53 04/30/16 04/30/16 05/01/16 15:00 23:00 07:00 Intake Total 751 ml 320 ml 405 ml Output Total 450 ml 600 ml 300 ml Balance 301 ml -280 ml 105 ml IV Total 751 ml 320 ml 405 ml Tube Feeding 0 ml 0 ml Output Urine Total 450 ml 600 ml 300 ml # Bowel Movements 0 0 . Laboratory Tests Test 04/30/16 04/30/16 05/01/16 03:00 18:00 07:50 White Blood Count 12.5 TH/MM3 10.8 TH/MM3 11.7 TH/MM3 Red Blood Count 4.13 MIL/MM3 3.87 MIL/MM3 4.23 MIL/MM3 Hemoglobin 11.0 GM/DL 10.5 GM/DL 11.2 GM/DL Hematocrit 34.4 % 32.3 % 35.2 % Mean Corpuscular Volume 83.4 FL 83.5 FL 83.3 FL Mean Corpuscular Hemoglobin 26.7 PG 27.1 PG 26.4 PG Mean Corpuscular Hemoglobin 32.0 % 32.4 % 31.7 % Concent Red Cell Distribution Width 15.7 % 15.6 % 16.5 % Platelet Count 202 TH/MM3 189 TH/MM3 204 TH/MM3 Mean Platelet Volume 9.2 FL 8.8 FL 8.7 FL Neutrophils (%) (Auto) 81.6 % 87.8 % Lymphocytes (%) (Auto) 13.3 % 8.0 % Monocytes (%) (Auto) 4.0 % 4.0 % Eosinophils (%) (Auto) 0.7 % 0.1 % Basophils (%) (Auto) 0.4 % 0.1 % Neutrophils # (Auto) 10.2 TH/MM3 9.5 TH/MM3 Lymphocytes # (Auto) 1.7 TH/MM3 0.9 TH/MM3 Monocytes # (Auto) 0.5 TH/MM3 0.4 TH/MM3 Eosinophils # (Auto) 0.1 TH/MM3 0.0 TH/MM3 Basophils # (Auto) 0.0 TH/MM3 0.0 TH/MM3 CBC Comment AUTO DIFF AUTO DIFF Differential Total Cells 100 100 Counted Neutrophils % (Manual) 89 % 86 % Band Neutrophils % 1 % 5 % Lymphocytes % 6 % 4 % Monocytes % 3 % 4 % Eosinophils % 1 % Neutrophils # (Manual) 11.3 TH/MM3 9.9 TH/MM3 Differential Comment FINAL DIFF FINAL DIFF MANUAL MANUAL Platelet Estimate NORMAL NORMAL Platelet Morphology Comment NORMAL NORMAL Red Cell Morphology Comment NORMAL Myelocytes 1 % Laboratory Tests Test 04/30/16 04/30/16 05/01/16 03:00 18:00 07:50 Sodium Level 143 MEQ/L 140 MEQ/L 142 MEQ/L Potassium Level 3.3 MEQ/L 3.6 MEQ/L 3.9 MEQ/L Chloride Level 104 MEQ/L 106 MEQ/L 107 MEQ/L Carbon Dioxide Level 26.9 MEQ/L 24.5 MEQ/L 24.4 MEQ/L Anion Gap 12 MEQ/L 10 MEQ/L 11 MEQ/L Blood Urea Nitrogen 25 MG/DL 20 MG/DL 21 MG/DL Creatinine 0.45 MG/DL 0.43 MG/DL 0.48 MG/DL Estimat Glomerular Filtration 199 ML/MIN 209 ML/MIN 184 ML/MIN Rate Random Glucose 126 MG/DL 172 MG/DL 109 MG/DL Calcium Level 8.8 MG/DL 7.3 MG/DL 8.4 MG/DL Phosphorus Level 3.9 MG/DL 4.6 MG/DL 4.0 MG/DL Magnesium Level 2.5 MG/DL 2.1 MG/DL 2.2 MG/DL Protein Corrected Calcium 8.2 MG/DL Total Protein 5.5 GM/DL Imaging Chest X-Ray 04/27/16 0000 Signed Impressions: Service Date/Time: Wednesday, April 27, 2016 13:37 - CONCLUSION: 1. Under aerated. 2. Support apparatus in good position. Bear Barton MD FACR Chest X-Ray 04/25/16 0000 Signed Impressions: Service Date/Time: Monday, April 25, 2016 13:33 - CONCLUSION: Stable chest Bernard Hartman MD Chest X-Ray 04/23/16 0600 Signed Impressions: Service Date/Time: Saturday, April 23, 2016 03:46 - CONCLUSION: Bilateral areas of consolidation or atelectasis being worse on the left. Ubaldo Coombs MD Abdomen X-Ray 03/31/16 0000 Signed Impressions: Service Date/Time: Thursday, March 31, 2016 09:58 - CONCLUSION: Benign abdomen. Rodrigo Martinez MD Chest CT 03/28/16 0836 Signed Impressions: Service Date/Time: Monday, March 28, 2016 09:57 - CONCLUSION: Development areas of air bronchograms and consolidation more prominent in the right and left posterior basilar segments of the lower lobes. ET tube above the chanelle. Bernard Hartman MD CT Angiography 03/24/16 1121 Signed Impressions: Service Date/Time: Thursday, March 24, 2016 12:47 - CONCLUSION: 1. There is respiratory motion artifact but no PE is identified through most of the segmental level pulmonary arteries. 2. Mildly enlarged main pulmonary artery may indicate pulmonary arterial hypertension. 3. 11 mm left lower lobe noncalcified pulmonary nodule. Suggest correlation with any prior imaging studies that could confirm longer-term stability. If none are available consider short-term followup noncontrast chest CT in approximately 3 months. Ubaldo Rodas MD Chest X-Ray 04/19/16 0000 Signed Impressions: Service Date/Time: April 03:20 - CONCLUSION: 1. Cardiomegaly and findings of congestive heart failure. There has been no significant change when compared to the prior exam. Kyaw Rojo MD Chest X-Ray 04/18/16 0000 Signed Impressions: Service Date/Time: Monday, April 18, 2016 09:59 - CONCLUSION: 1. Support equipment in good position. 2. Small left basilar effusion and consolidative changes in the left lower lobe and perihilar region on the right. Dc Barton MD Chest X-Ray 04/16/16 0600 Signed Impressions: Service Date/Time: Saturday, April 16, 2016 03:58 - CONCLUSION: 1. Cardiomegaly. Bilateral lower lobe atelectasis versus pneumonia. There has been no significant change when compared to the prior exam. Kyaw Rojo MD Abdomen X-Ray 03/31/16 0000 Signed Impressions: Service Date/Time: Thursday, March 31, 2016 09:58 - CONCLUSION: Benign abdomen. Rodrigo Martinez MD Chest CT 03/28/16 0836 Signed Impressions: Service Date/Time: Monday, March 28, 2016 09:57 - CONCLUSION: Development areas of air bronchograms and consolidation more prominent in the right and left posterior basilar segments of the lower lobes. ET tube above the chanelle. Bernard Hartman MD CT Angiography 03/24/16 1121 Signed Impressions: Service Date/Time: Thursday, March 24, 2016 12:47 - CONCLUSION: 1. There is respiratory motion artifact but no PE is identified through most of the segmental level pulmonary arteries. 2. Mildly enlarged main pulmonary artery may indicate pulmonary arterial hypertension. 3. 11 mm left lower lobe noncalcified pulmonary nodule. Suggest correlation with any prior imaging studies that could confirm longer-term stability. If none are available consider short-term followup noncontrast chest CT in approximately 3 months. Ubaldo Rodas MD Chest X-Ray 04/12/16599 Signed Impressions: Service Date/Time: April 04:14 - CONCLUSION: Worsening appearance of the chest. Henrry Andrea MD Chest X-Ray 04/11/16 0000 Signed Impressions: Service Date/Time: Monday, April 11, 2016 04:09 - CONCLUSION: No significant change has occurred. Henrry Andrea MD Chest X-Ray 04/09/16899 Signed Impressions: Service Date/Time: Saturday, April 09, 2016 09:12 - CONCLUSION: 1. Diffuse alveolar consolidation of the left lung and right upper lung field consistent with pneumonia and/or asymmetric pulmonary edema. Clinical correlation is recommended. 2. Endotracheal tube has its tip 1 cm above the chanelle. This could be pulled back 2 cm for more optimal position. Farhat Montes MD Chest X-Ray 04/05/16599 Signed Impressions: Service Date/Time: April 03:25 - CONCLUSION: 1. Improved basilar consolidation. Residual versus developing right midlung consolidation. 2. Small bilateral pleural effusions are suspected. 3. No change cardiomegaly or lines/tubes. Ubaldo Ortiz MD Chest X-Ray 04/04/16599 Signed Impressions: Service Date/Time: Monday, April 04, 2016 04:44 - CONCLUSION: Worsening bilateral airspace opacities, especially left perihilar. Ubaldo Ortiz MD Chest X-Ray 04/04/16599 Signed Impressions: Service Date/Time: Monday, April 04, 2016 04:44 - CONCLUSION: Worsening bilateral airspace opacities, especially left perihilar. Ubaldo Ortiz MD Chest X-Ray 04/03/16599 Signed Impressions: Service Date/Time: Sunday, April 03, 2016 00:16 - CONCLUSION: Potential developing pneumonia in the right upper lobe. Bibasilar atelectasis modestly worse in the interim. Ubaldo Ortiz MD Chest X-Ray 04/03/16599 Signed Impressions: Service Date/Time: Sunday, April 03, 2016 00:16 - CONCLUSION: Potential developing pneumonia in the right upper lobe. Bibasilar atelectasis modestly worse in the interim. Ubaldo Ortiz MD Chest X-Ray 04/02/16 0925 Signed Impressions: Service Date/Time: Saturday, April 02, 2016 09:22 - CONCLUSION: Place a right jugular catheter terminates superior vena cava with no pneumothorax. Bernard Hartman MD Physical Exam GENERAL: on the vent, NAD. Awake and interacting SKIN: Warm and dry. No generalized rash HEENT: No icterus, moist mucosa NECK: Trach in place CHEST: Coarse BS bilaterally, decreased at bases CARDIAC: regular, no murmur ABDOMEN: soft, obese, (+) BS : Becker in place, urine looks clear MUSCULOSKELETAL: Extremities without clubbing, cyanosis. No edema NEUROLOGICAL: Awake and interacting PSYCH: Awake, cooperative LINE: No evidence of infection Assessment & Plan Remarks IMPRESSION Leukocytosis, persistent, stable - has been on adequate Abx for pathogens isolated Pneumonia, C/S MSSA - Last CXR stable - S/P RX Sputum with persistent MSSA JACOB Respiratory failure Morbid obesity Allergy to PCN, swelling Fevers, recurrent - has (+) BC, Staph epi one out 2 BC, has new line PICC - ?new VAP, has MSSA again RECOMMENDATION Monitor temps Continue IV Clindamycin, plan 7 days Monitor progress Weaning per CCM Elisha Painter MD May 01, 2016 11:02
[2016-05-01] MEDS: CHLORHEXIDINE 0.12% (ORAL KIT) 15 ML CUP MT SCH ×2 (12:33→20:53)
--- NOTE | 2016-05-01 16:57 | HHI.CCPN ---
Subjective Remarks/Hospital Course Patient is a 50 years old obese male with past medical history significant for undiagnosed sleep apnea, super morbid obesity, type 2 diabetes was brought to the emergency department on 03/24/16 after feeling light headed and dizzy. On presentation here was found to be hypoxemic and ABG showed severe hypoxemia and hypercarbia. For a recent driving physical he was diagnosed with low oxygen saturations. Patient's oxygen saturation the ED was in the low 80s, which was confirmed on ABG with a oxygen saturation of 78% and PO2 of 46. CTA negative for PE. Patient was initiated on BiPAP therapy with consult to pulmonary Dr. rCane. His oxygenation improved but he continued to be hypercapnic. Today a.m. on nasal cannula his pH was 7.26 and PCO2 was increased at 99, patient was somnolent was placed back on BiPAP and repeat ABG at noon showed pH 7.26 PCO2 98 and pO2 70. This was on 16 BiPAP with FiO2 50%. Critical care was consulted. On my evaluation patient is somnolent but wakes up easily. I reduced the PEEP on BiPAP from 12-7 to facilitate better ventilation. A repeat ANG showed only minimal improvement, so decision made to intubate patient. Glidescope with #4 blade was used. Only propofol was used for induction. Initially I had a Grade 1-2 view, but I was unable to pass tube through the vocal cord to trachea in two attempts. Tube slipped out of Laryngeal opening both times. Dr Garrett intubated patient after NM paralysis with succinylcholine. Post intubation ABG showed improvement in hypercapnia and oxygenation. 03/27/16: Patient remains intubated heavily sedated with propofol and fentanyl. Remained severely hypoxemic on 100% FiO2, PEEP12, chest x-ray shows bibasilar infiltrates. Flagyl added. We'll give 1 dose of vancomycin-Adjust antibiotics according to cultures. Patient super morbid obesity may prevent Prone therapy 03/28: Remains hypoxic but ABG shows marginal improvement in oxygenation. WBC increasing 20.1 today. Start vancomycin scheduled. 03/29: Oxygenation is slightly improved. FiO2 reduced to 50% today. Chest x- ray remains unchanged. On sedation hold patient does wake up and follow commands. WBC count remains at 20 03/30 No acute events overnight. Sedated with Diprivan and Fentanyl. Had T: 100.1 at 4 am. WBC trending down 15.9 today from 20. 03/31 Patient remains sedated with Diprivan, Fentanyl and intubated. Tmax 100.1. Patient required increase O2 overnight now on ACV with PEEP: 12 and FIO2 70%. 04/01: Tmax 99.7. No bowel movement since admission. Patient has bowel sounds. Arousable on the ventilator. We'll attempt prone the patient paralyzed to increase oxygenation status. 04/02: MAXIMUM TEMPERATURE 100.9. Currently 97.7. 5 10 cc stools overnight. Placed on Roto prone yesterday. Saturations currently 94% on Flolan. Diuresed overnight. Creatinine still within normal limits. 04/03: Tmax 101. Currently 99.1. Positive BM. Did not tolerate not being unprone this AM. Saturations much improved prone. Tolerating tube feeding. 04/04: Tmax 100.8. Currently 98.8. +2 L past 24 hours. Attempt to on prone today. Positive BM. C. difficile negative. Remains paralyzed. 04/05: Remains sedated, orally intubated on neuromuscular blockade on mechanical ventilation. Remains on Rota prone bed. On insulin drip. 04/06: Remains sedated, orally intubated on neuromuscular blockade, on mechanical ventilation. Remains on Rota prone bed. Insulin drip continues. 04/07 Patient remains on Rotoprone bed sedated with Diprivan, Versed, Fentanyl in addition patient is on Nimbex. Afebrile. On Insulin drip 5u/hr. 04/08 Patient remains sedated and intubated and on Nimbex. Off insulin drip. On PRVC/AC with RR 15, TV 550, IT: 1.65, PEEP: 15 and FIO2 100%. T: 100.2 at 4 am. 04/09 Patient is sedated, intubated and remains on neuromuscular blockade. Vent setting unchanged. afebrile. 04/10 Patient remains sedated and intubated and on Nimbex. On PRVC/AC, RR 15, TV 500, PEEP: 15, FIO2 90%, IT:1.65, on Flolan drip. Remains on Rotoprone bed. 04/11 minimal improvement in oxygenation, FiO2 now at 75 - continue to improve oxygenation, worsening CXR 04/13/10 continue to improve oxygenation DC'd prone position last night 04/14- improving oxygenation, Nimbex discontinued as well as prone position 04/16 Patient is sedated with Versed and Fentanyl and intubated. Off rotoprone bed. On PRVC/AC RR 15, TV 550, IT 1.65, PEEP:15, FIO2 50%. 04/17 Patient remains sedated with Versed and Fentanyl. Afebrile, tolerating tube feeds 04/18 No acute events overnight Sedated and intubated. Afebrile. On PRVC/AC RR 15 , TV 550, IT 1.65, PEEP:15, FIO2 60% 04/19: Spiking fever up to 101, pancultured and 1 dose of vancomycin given by ID. On weaning doses of Flolan. FiO2 down to 50% I have reduced PEEP to 14. Remains critically ill 04/20: No fever. Sputum cx with Staph -S pending. Fio2 50% PEEP remains at 14. TV increased to 650 to improve lung recruitment. On weaning dose of Flolan-DC after current bag 04/21:Afebrile. Hyponatremia resolving, the patient will be placed on free water flushes. 04/22:The patient had an episode of acute desaturation requiring FiO2 increased to 90%. Stat chest x-ray stat ABG aggressive pulmonary toileting and suctioning , resolution of symptoms FiO2 now 55%. ABGs within normal limits. 04/23: Tmax 99.5. Currently afebrile. O2 sat 50%. PEEP down to 13. One small bowel movement overnight. 04/24: Currently afebrile. O2 sat 45%. PEEP to 12. One BM. Tolerating tube feeds. 04/25: Afebrile. PEEP down to 11. Positive BM. Tolerating tube feeds. Awake on the ventilator with eyes open. 04/26: Afebrile. PEEP down to 10. Time to feeding. Awake and alert eyes open. 04/27: Suspected fever overnight. One bowel movement documented. Will decreased PEEP to 9. Awake and alert and follows commands. 04/28: Tmax 99.3. Currently afebrile. FiO2 increased to 70%. PEEP to 10. Awake and does follow commands. Positive BM 4 yesterday. Subjective 04/29: FiO2 down to 55%. Peak systolic 10. Awake and does follow commands. Positive BM 1 yesterday. Tolerating tube feeding. 04/30: No acute issues overnight . The patient continues to be sedated with plans for tracheostomy in the OR today. The patient follows commands when on sedation vacation. 05/01: Postop day 1 post tracheostomy tube placement, no issues overnight. Plan for CPAP trials today. Objective Vital Signs Date Time Temp Pulse Resp B/P Pulse Ox O2 Delivery O2 Flow Rate FiO2 05/01/16 16:00 55 05/01/16 16:00 105 05/01/16 15:11 96 05/01/16 12:00 98.5 20 108/57 Intake and Output 04/30/16 04/30/16 05/01/16 08:00 16:00 00:00 Intake Total 332 ml 751 ml 320 ml Output Total 350 ml 450 ml 600 ml Balance -18 ml 301 ml -280 ml Result Diagram: 05/01/16 0750 05/01/16 0750 Imaging Last Impressions Chest X-Ray 04/27/16 0000 Signed Impressions: Service Date/Time: Wednesday, April 27, 2016 13:37 - CONCLUSION: 1. Under aerated. 2. Support apparatus in good position. Bear Barton MD FACR Abdomen X-Ray 03/31/16 0000 Signed Impressions: Service Date/Time: Thursday, March 31, 2016 09:58 - CONCLUSION: Benign abdomen. Rodrigo Martinez MD Chest CT 03/28/16 0836 Signed Impressions: Service Date/Time: Monday, March 28, 2016 09:57 - CONCLUSION: Development areas of air bronchograms and consolidation more prominent in the right and left posterior basilar segments of the lower lobes. ET tube above the chanelle. Bernard Hartman MD CT Angiography 03/24/16 1121 Signed Impressions: Service Date/Time: Thursday, March 24, 2016 12:47 - CONCLUSION: 1. There is respiratory motion artifact but no PE is identified through most of the segmental level pulmonary arteries. 2. Mildly enlarged main pulmonary artery may indicate pulmonary arterial hypertension. 3. 11 mm left lower lobe noncalcified pulmonary nodule. Suggest correlation with any prior imaging studies that could confirm longer-term stability. If none are available consider short-term followup noncontrast chest CT in approximately 3 months. Ubaldo Rodas MD Objective Remarks GENERAL: 50-year-old male, sedated tracheostomy SKIN: Seborrheic dermatitis of the face HEAD: Atraumatic. Normocephalic. EYES: Pupils equal round and slightly reactive about 3 millimeters bilaterally. ENT: NG tube in place. Tracheostomy in situ no drainage or erythema around the site NECK: Very large neck. Trachea midline. CARDIOVASCULAR: Distant heart sounds. RRR. S1, S2. No S4. Without murmur RESPIRATORY: Orally intubated on mechanical ventilation, Breath sounds equal bilaterally. Diminished breath sounds due to body habitus. GASTROINTESTINAL: Abdomen soft, obese, nontender. Severe central obesity MUSCULOSKELETAL: Extremities with trace to 1+ nonpitting bilateral lower extremity edema. Left antecubital PICC line is clean dry and intact NEUROLOGICAL: Arousable on the ventilator. Follows commands. Urinary Catheter: Yes Date of Insertion: Apr 02, 2016 Line: PICC Side: Left Location: Antecubital A/P Assessment and Plan Neuro/Psych: Likely SERENITY Toxic metabolic encephalopathy Currently On Fentanyl drip at 200 mcg an hour and Versed infusion 5 mg an hour for sedation and analgesia plan to discontinue fentanyl infusion Continue oxycodone 5/325mg every 6 and attempt to wean down analgesic sedation post tracheostomy Goal of RASS -2 Daily sedation vacation when appropriate PEEP< 8, FIO2.50 Acetaminophen for fever Pulm: Acute hypoxemic respiratory failure JACOB [facility] History of staph aureus pneumonia/HCAP ARDS On PRVC/AC RR 15, TV 650, IT:1.65, PEEP:10, FIO2 55% Continue with vent support keep sat >92%. Bronchodilators every 6 hours and every 2 hours as needed ICU vent bundle. Flolan off since 04/21 on Solumedrol 40mg daily Advanced ET tube 04/24 from 19-22 cm POD #1 S/P Tracheostomy CV: Monitor HR and BP keep MAP>65mmHg 2-D echo 03/26 EF 60%. No regional wall motion abnormality. Mild MR/TR. /FEN: Hypokalemia Hypernatremia Monitor renal function, I/O's, electrolytes replacement per protocol. Currently holding diuretics. GI: Constipation Moderate protein calorie malnutrition On Glucerna 1.5@45ml/hr with 1 scoop whey protein 3 times a day, Protonix 40mg daily On Reglan 10mg Q8, Senna and Colace twice a day.. Continue MiraLAX twice a day and lactulose 4 times a day. Consult general surgery regarding PEG tube placement ID: Staph aureus pneumonia Possible staph bacteremia Pertinent culture 04/27 - pansensitive staph aureus 04/27 blood cultures 2 negative 04/25 - urine -no growth 04/19 - blood cultures 2 out of 4 - staph aureus 04/19 - sputum - staph aureus 04/08 - sputum - staph aureus 04/03 - sputum - staph aureus 03/30 - sputum- -staph aureus 03/27 - sputum - staph aureus 03/26 - blood - staph hominis On vancomycin 2 g IV every 12 are since 04/19 - 04/29 Azactam 04/27 through 04/29 Currently on clindamycin day #3 Heme: Leukocytosis Monitor CBC/coags Monitor WBC Endo: Diabetes mellitus SSI for glycemic control (high scale) 30 units sliding scale insulin scale insulin in the past 24 hours, Levemir insulin 70 U Q12 MSK Morbid obesity Weight loss encouraged DVT, GI prophylaxis -Bilateral lower extremity SCDs. IV Protonix 40 mg daily. Lovenox 40 mg sq BID LINES: -Left upper extremity PICC line placed 04/15 Critical Care: Level 3 Dispo: Discussed with HANDS HANGER at bedside. Physician Lourdes Josue MD May 01, 2016 16:56
--- NOTE | 2016-05-01 17:44 | RADRPT ---
EXAM DATE/TIME: 05/01/2016 17:28 [facility] COMPARISON: No previous studies available for comparison. INDICATIONS : Dobhoff placement. MEDICAL HISTORY : None. SURGICAL HISTORY : None. ENCOUNTER: Initial ACUITY: 1 day PAIN SCORE: Non-responsive. LOCATION: Bilateral abdomen. FINDINGS: Examination of the abdomen demonstrates a normal bowel gas pattern. There is a feeding tube entering the stomach. No free air is identified. No organomegaly is evident. Osseous structures are intact. CONCLUSION: No evidence of obstruction. Feeding tube overlies the distal stomach, May have to be advanced slightl y to reach the duodenum. Nick Jon MD on May 01, 2016 at 17:42 Board Certified Radiologist. This report was verified electronically.
[2016-05-01] MEDS: PANTOPRAZOLE SODIUM 40 MG VIAL IV PUSH SCH (18:14)
[2016-05-01] MEDS: DEXMEDETOMIDINE INJ 50 ML IV SCH ×3 (18:15→23:15)
[2016-05-02] VITALS (20 sets, daily range): BP systolic 115–171; BP diastolic 74–110; PULSE 62–96; RESP 15–31; TEMP 98.5–99.8; O2SAT 93–99
[2016-05-02] MEDS: ARTIFICIAL TEARS OPTH SOLN 15 ML BTL EACH EYE SCH ×6 (02:00→21:28)
[2016-05-02] MEDS: RESP: ALBUTEROL 2.5 MG/IPRATROPIUM 0.5 MG NEB (SCH) NEB ×2 (03:54→07:53)
[2016-05-02] MEDS: DEXMEDETOMIDINE INJ 50 ML IV SCH ×8 (04:52→18:32)
[2016-05-02] MEDS: METOCLOPRAMIDE HCL 10 MG/2 ML VIAL IV PUSH SCH ×3 (04:52→20:55)
[2016-05-02] MEDS: ENOXAPARIN SODIUM 40 MG/0.4 ML SYRINGE SQ SCH ×2 (04:52→18:00)
[2016-05-02] MEDS: CLINDAMYCIN INJ 600 MG in SODIUM CHLORIDE 0.9% INJ 100 ML IV SCH ×3 (04:52→20:00)
[2016-05-02] MEDS: FREE WATER G-TUBE SCH ×3 (04:53→18:00)
[2016-05-02] MEDS: INSULIN NovoLIN REGULAR SUPPLEMENTAL SCALE SQ SCH ×4 (06:00→18:00)
[2016-05-02 07:15] LABS: HEMATOCRIT 34.5 % (39.0-51.0); MEAN CELL VOLUME 83.5 FL (80.0-100.0); MEAN CORPUSCULAR HEMOGLOBIN 27.1 PG (27.0-34.0); MEAN CORPUSCULAR HGB CONC 32.4 % (32.0-36.0); PLATELET COUNT 192 TH/MM3 (150-450); RED BLOOD COUNT 4.13 MIL/MM3 (4.50-5.90); RED CELL DISTRIBUTION WIDTH 16.3 % (11.6-17.2); REVIEW FLAG FINAL; WHITE BLOOD COUNT 10.4 TH/MM3 (4.0-11.0)
[2016-05-02 07:29] LABS: BICARBONATE 24.7 MEQ/L (21.0-32.0); MAGNESIUM 1.9 MG/DL (1.5-2.5); POTASSIUM 3.2 MEQ/L (3.5-5.1)
[2016-05-02] MEDS: SENNOSIDES SYRUP 8.8 MG/5 ML CUP PO/TUBE SCH ×3 (08:10→22:04)
[2016-05-02] MEDS: methylPREDNISolone SOD SUCC 40 MG/1 ML VIAL IV PUSH SCH (08:11)
[2016-05-02] MEDS: SODIUM CHLORIDE 0.9% FLUSH 5 ML FLUSH IVF SCH (08:12)
--- NOTE | 2016-05-02 08:53 | HHI.CCPN ---
Subjective Remarks/Hospital Course Patient is a 50 years old obese male with past medical history significant for undiagnosed sleep apnea, super morbid obesity, type 2 diabetes was brought to the emergency department on 03/24/16 after feeling light headed and dizzy. On presentation here was found to be hypoxemic and ABG showed severe hypoxemia and hypercarbia. For a recent driving physical he was diagnosed with low oxygen saturations. Patient's oxygen saturation the ED was in the low 80s, which was confirmed on ABG with a oxygen saturation of 78% and PO2 of 46. CTA negative for PE. Patient was initiated on BiPAP therapy with consult to pulmonary Dr. Crane. His oxygenation improved but he continued to be hypercapnic. Today a.m. on nasal cannula his pH was 7.26 and PCO2 was increased at 99, patient was somnolent was placed back on BiPAP and repeat ABG at noon showed pH 7.26 PCO2 98 and pO2 70. This was on 16 BiPAP with FiO2 50%. Critical care was consulted. On my evaluation patient is somnolent but wakes up easily. I reduced the PEEP on BiPAP from 12-7 to facilitate better ventilation. A repeat ANG showed only minimal improvement, so decision made to intubate patient. Glidescope with #4 blade was used. Only propofol was used for induction. Initially I had a Grade 1-2 view, but I was unable to pass tube through the vocal cord to trachea in two attempts. Tube slipped out of Laryngeal opening both times. Dr Garrett intubated patient after NM paralysis with succinylcholine. Post intubation ABG showed improvement in hypercapnia and oxygenation. 03/27/16: Patient remains intubated heavily sedated with propofol and fentanyl. Remained severely hypoxemic on 100% FiO2, PEEP12, chest x-ray shows bibasilar infiltrates. Flagyl added. We'll give 1 dose of vancomycin-Adjust antibiotics according to cultures. Patient super morbid obesity may prevent Prone therapy 03/28: Remains hypoxic but ABG shows marginal improvement in oxygenation. WBC increasing 20.1 today. Start vancomycin scheduled. 03/29: Oxygenation is slightly improved. FiO2 reduced to 50% today. Chest x- ray remains unchanged. On sedation hold patient does wake up and follow commands. WBC count remains at 20 03/30 No acute events overnight. Sedated with Diprivan and Fentanyl. Had T: 100.1 at 4 am. WBC trending down 15.9 today from 20. 03/31 Patient remains sedated with Diprivan, Fentanyl and intubated. Tmax 100.1. Patient required increase O2 overnight now on ACV with PEEP: 12 and FIO2 70%. 04/01: Tmax 99.7. No bowel movement since admission. Patient has bowel sounds. Arousable on the ventilator. We'll attempt prone the patient paralyzed to increase oxygenation status. 04/02: MAXIMUM TEMPERATURE 100.9. Currently 97.7. 5 10 cc stools overnight. Placed on Roto prone yesterday. Saturations currently 94% on Flolan. Diuresed overnight. Creatinine still within normal limits. 04/03: Tmax 101. Currently 99.1. Positive BM. Did not tolerate not being unprone this AM. Saturations much improved prone. Tolerating tube feeding. 04/04: Tmax 100.8. Currently 98.8. +2 L past 24 hours. Attempt to on prone today. Positive BM. C. difficile negative. Remains paralyzed. 04/05: Remains sedated, orally intubated on neuromuscular blockade on mechanical ventilation. Remains on Rota prone bed. On insulin drip. 04/06: Remains sedated, orally intubated on neuromuscular blockade, on mechanical ventilation. Remains on Rota prone bed. Insulin drip continues. 04/07 Patient remains on Rotoprone bed sedated with Diprivan, Versed, Fentanyl in addition patient is on Nimbex. Afebrile. On Insulin drip 5u/hr. 04/08 Patient remains sedated and intubated and on Nimbex. Off insulin drip. On PRVC/AC with RR 15, TV 550, IT: 1.65, PEEP: 15 and FIO2 100%. T: 100.2 at 4 am. 04/09 Patient is sedated, intubated and remains on neuromuscular blockade. Vent setting unchanged. afebrile. 04/10 Patient remains sedated and intubated and on Nimbex. On PRVC/AC, RR 15, TV 500, PEEP: 15, FIO2 90%, IT:1.65, on Flolan drip. Remains on Rotoprone bed. 04/11 minimal improvement in oxygenation, FiO2 now at 75 - continue to improve oxygenation, worsening CXR 04/13/10 continue to improve oxygenation DC'd prone position last night 04/14- improving oxygenation, Nimbex discontinued as well as prone position 04/16 Patient is sedated with Versed and Fentanyl and intubated. Off rotoprone bed. On PRVC/AC RR 15, TV 550, IT 1.65, PEEP:15, FIO2 50%. 04/17 Patient remains sedated with Versed and Fentanyl. Afebrile, tolerating tube feeds 04/18 No acute events overnight Sedated and intubated. Afebrile. On PRVC/AC RR 15 , TV 550, IT 1.65, PEEP:15, FIO2 60% 04/19: Spiking fever up to 101, pancultured and 1 dose of vancomycin given by ID. On weaning doses of Flolan. FiO2 down to 50% I have reduced PEEP to 14. Remains critically ill 04/20: No fever. Sputum cx with Staph -S pending. Fio2 50% PEEP remains at 14. TV increased to 650 to improve lung recruitment. On weaning dose of Flolan-DC after current bag 04/21:Afebrile. Hyponatremia resolving, the patient will be placed on free water flushes. 04/22:The patient had an episode of acute desaturation requiring FiO2 increased to 90%. Stat chest x-ray stat ABG aggressive pulmonary toileting and suctioning , resolution of symptoms FiO2 now 55%. ABGs within normal limits. 04/23: Tmax 99.5. Currently afebrile. O2 sat 50%. PEEP down to 13. One small bowel movement overnight. 04/24: Currently afebrile. O2 sat 45%. PEEP to 12. One BM. Tolerating tube feeds. 04/25: Afebrile. PEEP down to 11. Positive BM. Tolerating tube feeds. Awake on the ventilator with eyes open. 04/26: Afebrile. PEEP down to 10. Time to feeding. Awake and alert eyes open. 04/27: Suspected fever overnight. One bowel movement documented. Will decreased PEEP to 9. Awake and alert and follows commands. 04/28: Tmax 99.3. Currently afebrile. FiO2 increased to 70%. PEEP to 10. Awake and does follow commands. Positive BM 4 yesterday. Subjective 04/29: FiO2 down to 55%. Peak systolic 10. Awake and does follow commands. Positive BM 1 yesterday. Tolerating tube feeding. 04/30: No acute issues overnight . The patient continues to be sedated with plans for tracheostomy in the OR today. The patient follows commands when on sedation vacation. 05/01: Postop day 1 post tracheostomy tube placement, no issues overnight. Plan for CPAP trials today. 05/02: Afebrile. The patient continues on CPAP trial 15/5 , FiO2 .45%. The patient alert and responsive this a.m., continues on Precedex and fentanyl infusion. By mouth narcotics, and fentanyl patch instituted to transition all fentanyl infusion. PEG tube placement pending. Objective Vital Signs Date Time Temp Pulse Resp B/P Pulse Ox O2 Delivery O2 Flow Rate FiO2 05/02/16 07:50 94 45 05/02/16 06:00 96 05/02/16 04:00 98.8 15 142/84 Intake and Output 05/01/16 05/01/16 05/02/16 08:00 16:00 00:00 Intake Total 405 ml 351 ml 315 ml Output Total 300 ml 450 ml 1250 ml Balance 105 ml -99 ml -935 ml Result Diagram: 05/02/16 0640 05/02/16 0640 Imaging Last Impressions Chest X-Ray 04/27/16 0000 Signed Impressions: Service Date/Time: Wednesday, April 27, 2016 13:37 - CONCLUSION: 1. Under aerated. 2. Support apparatus in good position. Bear Barton MD FACR Abdomen X-Ray 03/31/16 0000 Signed Impressions: Service Date/Time: Thursday, March 31, 2016 09:58 - CONCLUSION: Benign abdomen. Rodrigo Martinez MD Chest CT 03/28/16 0836 Signed Impressions: Service Date/Time: Monday, March 28, 2016 09:57 - CONCLUSION: Development areas of air bronchograms and consolidation more prominent in the right and left posterior basilar segments of the lower lobes. ET tube above the chanelle. Bernard Hartman MD CT Angiography 03/24/16 1121 Signed Impressions: Service Date/Time: Thursday, March 24, 2016 12:47 - CONCLUSION: 1. There is respiratory motion artifact but no PE is identified through most of the segmental level pulmonary arteries. 2. Mildly enlarged main pulmonary artery may indicate pulmonary arterial hypertension. 3. 11 mm left lower lobe noncalcified pulmonary nodule. Suggest correlation with any prior imaging studies that could confirm longer-term stability. If none are available consider short-term followup noncontrast chest CT in approximately 3 months. Ubaldo Rodas MD Objective Remarks GENERAL: 50-year-old male, sedated tracheostomy SKIN: Seborrheic dermatitis of the face HEAD: Atraumatic. Normocephalic. EYES: Pupils equal round and slightly reactive about 3 millimeters bilaterally. ENT: NG tube in place. Tracheostomy in situ no drainage or erythema around the site NECK: Very large neck. Trachea midline. CARDIOVASCULAR: Distant heart sounds. RRR. S1, S2. No S4. Without murmur RESPIRATORY: Orally intubated on mechanical ventilation, Breath sounds equal bilaterally. Diminished breath sounds due to body habitus. GASTROINTESTINAL: Abdomen soft, obese, nontender. Severe central obesity MUSCULOSKELETAL: Extremities with trace to 1+ nonpitting bilateral lower extremity edema. Left antecubital PICC line is clean dry and intact NEUROLOGICAL: Alert ,RASS -1, Follows commands, cooperative. Urinary Catheter: Yes Becker insert reason: Measure Accurate Output Vascular Central Line Catheter: Yes Date of Insertion: Apr 02, 2016 Line: PICC Side: Left Location: Antecubital A/P Assessment and Plan Neuro/Psych: Likely SERENITY Toxic metabolic encephalopathy Currently On Fentanyl drip at 200 mcg an hour and Versed infusion 5 mg an hour for sedation and analgesia plan to discontinue fentanyl infusion Continue Trappe 5/325mg every 6hrs scheduled, fentanyl patch 25mcgs, and Shauna 5mg PRN, transition off of fentanyl infusion Precedex infusion 0.5mg/kg/hr Goal of RASS -1 Acetaminophen for fever Pulm: Acute hypoxemic respiratory failure JACOB OHS History of staph aureus pneumonia/HCAP ARDS On PRVC/AC RR 15, TV 650, IT:1.65, PEEP:10, FIO2 50% Continue with vent support keep sat >92%. Bronchodilators every 6 hours and every 2 hours as needed ICU ventilator bundle Flolan off since 04/21 on Solumedrol decreased to 30mg daily POD #2 S/P Tracheostomy CPAP trials 15/8 FiO2.45% O2 sat 93% CV: Monitor HR and BP keep MAP>65mmHg 2-D echo 03/26 EF 60%. No regional wall motion abnormality. Mild MR/TR. /FEN: Hypokalemia Hypernatremia Monitor renal function, I/O's, electrolytes replacement per protocol. Currently holding diuretics. GI: Constipation Moderate protein calorie malnutrition On Glucerna 1.5@45ml/hr with 1 scoop whey protein 3 times a day, Protonix 40mg daily On Reglan 10mg Q8, Senna and Colace twice a day.. Continue MiraLAX twice a day and lactulose 4 times a day. Consult general surgery - PEG tube placement ID: Staph aureus pneumonia Possible staph bacteremia Pertinent culture 04/27 - pansensitive staph aureus 04/27 blood cultures 2 negative 04/25 - urine -no growth 04/19 - blood cultures 2 out of 4 - staph aureus 04/19 - sputum - staph aureus 04/08 - sputum - staph aureus 04/03 - sputum - staph aureus 03/30 - sputum- -staph aureus 03/27 - sputum - staph aureus 03/26 - blood - staph hominis On vancomycin 2 g IV every 12 are since 04/19 - 04/29 Azactam 04/27 through 04/29 Currently on clindamycin day #3 Heme: Leukocytosis Monitor CBC/coags Monitor WBC Endo: Diabetes mellitus SSI for glycemic control (high scale) 30 units sliding scale insulin scale insulin in the past 24 hours, Levemir insulin 70 U Q12 MSK Morbid obesity Weight loss encouraged DVT, GI prophylaxis -Bilateral lower extremity SCDs. IV Protonix 40 mg daily. Lovenox 40 mg sq BID LINES: -Left upper extremity PICC line placed 04/15 Critical Care: Level 3 Dispo: Discussed with BUSINESS DEVELOPMENT EXECUTIVE at bedside. Physician Lourdes Josue MD May 02, 2016 08:53
[2016-05-02] MEDS: DOCUSATE SODIUM 100 MG/10 ML UDC PO SCH ×3 (09:00→22:04)
[2016-05-02] MEDS: INSULIN DETEMIR 100 UNITS/ML VIAL SQ SCH ×2 (09:00→21:00)
[2016-05-02] MEDS: BENEPROTEIN POWDER 1 PACK G-TUBE SCH ×3 (09:00→18:00)
[2016-05-02] MEDS: LACTOBACILLUS ACIDOPHILUS TAB PO SCH ×3 (09:00→18:00)
[2016-05-02] MEDS: POLYETHYLENE GLYCOL 17 GM PKG PO SCH ×2 (09:00→21:00)
[2016-05-02] MEDS: POTASSIUM CHLOR 40 MEQ PREMIX 100 ML IV PRN (09:19)
[2016-05-02] MEDS: fentaNYL 2,500 MCG/NS 250 ML IV SCH ×2 (09:27→15:59)
[2016-05-02] MEDS: ACETAMINOPHEN/HYDROcodone 325 MG/5 MG TAB PO SCH ×4 (10:42→22:02)
[2016-05-02] MEDS: fentaNYL 25 MCG/HR PATCH TD SCH (11:04)
[2016-05-02] MEDS: ARTIFICIAL TEARS OPTH OINT 3.5 APPLIC/3.5 GM TUBO EACH EYE SCH ×2 (11:05→21:00)
[2016-05-02] MEDS: NYSTATIN 100,000 U/GM PWD 15 GM BTL TOPICAL SCH ×2 (11:05→21:00)
[2016-05-02] MEDS: BETAMETHASONE/CLOTRIMAZOLE CREAM 15 GM TOPICAL SCH ×2 (11:05→21:00)
[2016-05-02] MEDS: CHLORHEXIDINE 0.12% (ORAL KIT) 15 ML CUP MT SCH ×2 (11:08→20:00)
--- NOTE | 2016-05-02 11:35 | PD.CONS ---
HPI History of Present Illness This is a 50 year old male with PMH of sleep apnea, super morbid obesity, type 2 diabetes with complicated long hospital stay for diagnosis of toxic metabolic encephalopathy, acute hypoxemic respiratory failure, staph aureus pneumonia, HCAP, ARDS. Currently patient is on C-pap trials through trach. He is in need for tube feed. GI have been consulted for PEG tube placement. I called brother at , no answer and left a message. Patient is not able to provide any HPI, most of information obtained from nurse and EMR. ( Khushi Moreno) PFSH Past Medical History Per EMR Diabetes JACOB suspect Seborrheic dermatitis Morbid obesity . Past Surgical History Per EMR: right CTS surgery (Khushi Moreno) Coded Allergies: Penicillin (Verified Allergy, Severe, Swelling, 03/24/16) Tetanus Toxoid (Verified Allergy, Unknown, Swelling, 03/24/16) Medications Current Medications Medications (Trade) Dose Ordered Sig/Chapis Route Start Time Stop Time Status Last Admin (NS Flush) 2 ml UNSCH PRN IVF 03/24/16 11:30 04/22/16 07:42 (Spiriva Inh) 18 mcg DAILY INH 03/25/16 13:45 Hold 03/27/16 08:36 Betamethasone/ Clotrimazole 1 applic 1 applic Q12HR TOPICAL 03/26/16 09:00 05/02/16 11:05 (fentaNYL DRIP) 250 ml @ 0 mls/hr TITRATE IV 03/26/16 14:30 05/02/16 09:27 (Protonix Inj) 40 mg Q24H IV PUSH 03/26/16 18:00 05/01/16 18:14 Enoxaparin Sodium 40 mg 40 mg Q12H SQ 03/26/16 18:00 05/02/16 04:52 Potassium Chloride 100 ml @ 50 mls/hr Q2H PRN IV 03/26/16 16:45 05/02/16 09:19 (KCl 20 Meq Premix Inj) 100 ml @ 50 mls/hr Q2H PRN IV 03/26/16 16:45 Potassium Chloride 40 meq 40 meq UNSCH PRN PO/TUBE 03/26/16 16:45 04/17/16 08:10 Potassium Chloride 100 ml @ 25 mls/hr UNSCH PRN IV 03/26/16 16:45 04/20/16 09:17 Potassium Chloride 100 ml @ 50 mls/hr Q2H PRN IV 03/26/16 16:45 04/28/16 10:27 (Magnesium Sulfate Inj/NS Inj) 100 ml @ 50 mls/hr UNSCH PRN IV 03/26/16 16:45 Magnesium Oxide 800 mg 800 mg UNSCH PRN PO 03/26/16 16:45 (Magnesium Sulfate Inj/NS Inj) 100 ml @ 50 mls/hr UNSCH PRN IV 03/26/16 16:45 Potassium Phosphate 2000 mg 2,000 mg Q4H PRN PO 03/26/16 16:45 04/01/16 05:08 (Sodium Phosphate Inj/NS 250 ml Inj) 250 ml @ 42 mls/hr UNSCH PRN IV 03/26/16 16:45 (KCl 40 Meq/30 ml Liq) 40 meq UNSCH PRN PO/TUBE 03/26/16 16:45 Potassium Phosphate 2000 mg 2,000 mg UNSCH PRN PO/TUBE 03/26/16 16:45 (Potassium Phosphate Inj/NS 250 ml Inj) 260 ml @ 42 mls/hr UNSCH PRN IV 03/26/16 16:45 (Beneprotein Powder) 1 pack TID G-TUBE 03/27/16 09:00 04/29/16 18:00 (Colace Liq) 100 mg Q12HR PO 03/29/16 09:00 04/29/16 20:55 (Tylenol 650 Mg/ 20 ml Liq) 650 mg Q6H PRN PO 03/30/16 15:45 04/27/16 19:28 (Senna Liq) 8.8 mg BID PO/TUBE 04/01/16 09:00 05/02/16 08:10 (Glycerin Adult Supp) 2 gm BID PRN RECTAL 04/01/16 09:00 04/25/16 10:22 (Peridex 0.12% Liq) 15 ml BID@08,20 MT 04/01/16 20:00 05/02/16 11:08 (NS Flush) DAILY IVF 04/03/16 09:00 05/02/16 08:12 (NS Flush) UNSCH PRN IVF 04/02/16 09:30 04/22/16 07:42 (Lacrilube Opht Oint) 1 applic Q12HR EACH EYE 04/02/16 12:00 05/02/16 11:05 (Lactinex) 1 tab TID PO 04/03/16 13:00 04/29/16 18:05 (D50w (Vial) Inj) 25 ml UNSCH PRN IV PUSH 04/07/16 17:00 (Glucagon Inj) 1 mg UNSCH PRN OTHER 04/07/16 17:00 (NovoLIN R SUPPLEMENTAL SCALE) 1 Q6H SQ 04/07/16 18:00 05/01/16 18:15 (Reglan Inj) 10 mg Q8HR IV PUSH 04/11/16 14:00 05/02/16 04:52 (K-Lyte Cl Eff) 25 meq Q12HR PO 04/21/16 21:00 Hold 04/28/16 07:49 (Tears Naturale Opth Soln) 1 drop Q4H EACH EYE 04/21/16 18:00 05/02/16 11:05 (Miralax) 17 gm BID PO 04/24/16 09:00 04/29/16 20:55 (Lactulose Liq) 30 ml QID PO 04/26/16 18:00 Hold 04/28/16 07:47 (Mycostatin Powder) 1 applic Q12HR TOPICAL 04/27/16 11:00 05/02/16 11:05 Insulin Detemir 70 units 70 units Q12HR SQ 04/28/16 21:00 04/29/16 20:56 Clindamycin Phosphate 600 mg/ Sodium Chloride 104 ml @ 208 mls/hr Q8H IV 04/29/16 12:00 05/06/16 12:00 05/02/16 04:52 (Precedex Inj) 50 ml @ 0 mls/hr TITRATE IV 05/01/16 17:00 05/02/16 10:42 (Free Water) 100 ml Q6HR G-TUBE 05/01/16 18:00 (Duragesic 25 Mcg Patch.72 Hr) 1 patch Q3D TD 05/02/16 09:00 05/02/16 11:04 Miscellaneous Information 1 Q3D T-DERMAL 05/05/16 09:00 (Roxicodone Intensol Liq) 5 mg Q6H PRN PO 05/02/16 08:45 (Colusa 5-325 Mg) 1 tab Q6H PO 05/02/16 09:00 05/02/16 10:42 (SoluMEDROL INJ) 30 mg DAILY IV PUSH 05/03/16 09:00 Family History Family history positive for diabetes Social History per EMR: denies smoking or alcohol use (Khushi Moreno) Review of Systems ROS Not able to obtain (Khushi Moreno) GI Exam Vitals I&O Vital Signs Date Time Temp Pulse Resp B/P Pulse Ox O2 Delivery O2 Flow Rate FiO2 05/02/16 10:00 96 05/02/16 08:00 45 05/02/16 08:00 83 05/02/16 08:00 98.6 84 20 115/74 96 05/02/16 07:50 94 45 05/02/16 06:00 96 05/02/16 04:06 94 45 05/02/16 04:00 92 05/02/16 04:00 50 05/02/16 04:00 98.8 92 15 142/84 95 05/02/16 02:00 93 05/02/16 01:04 93 45 05/02/16 00:00 98.5 90 15 135/84 96 05/02/16 00:00 50 05/02/16 00:00 90 05/01/16 22:38 96 45 05/01/16 22:00 66 05/01/16 20:00 98.6 66 15 139/78 96 05/01/16 20:00 66 05/01/16 20:00 50 05/01/16 19:55 97 50 05/01/16 18:00 105 05/01/16 16:00 55 05/01/16 16:00 105 05/01/16 16:00 98.3 80 18 107/60 98 05/01/16 15:11 96 55 05/01/16 14:00 105 05/01/16 12:00 105 05/01/16 12:00 55 05/01/16 12:00 98.5 89 20 108/57 98 I/O 05/01/16 05/01/16 05/01/16 05/02/16 05/02/16 05/02/16 07:00 15:00 23:00 07:00 15:00 23:00 Intake Total 405 ml 351 ml 315 ml 481 ml Output Total 300 ml 450 ml 1250 ml 1400 ml Balance 105 ml -99 ml -935 ml -919 ml IV Total 405 ml 351 ml 315 ml 481 ml Tube Feeding 0 ml 0 ml 0 ml Output Urine Total 300 ml 450 ml 1250 ml 1400 ml # Bowel Movements 0 0 0 Imaging Last Impressions Chest X-Ray 05/01/16 0600 Signed Impressions: Service Date/Time: Sunday, May 01, 2016 05:47 - CONCLUSION: 1. Support apparatus in satisfactory position. Mild basilar airspace disease. No significant change compared with April 30. Kyle Lorenzo MD Abdomen X-Ray 05/01/16 0000 Signed Impressions: Service Date/Time: Sunday, May 01, 2016 17:28 - CONCLUSION: No evidence of obstruction. Feeding tube overlies the distal stomach, May have to be advanced slightly to reach the duodenum. Nick Jon MD Chest CT 03/28/16 0836 Signed Impressions: Service Date/Time: Monday, March 28, 2016 09:57 - CONCLUSION: Development areas of air bronchograms and consolidation more prominent in the right and left posterior basilar segments of the lower lobes. ET tube above the chanelle. Bernard Hartman MD CT Angiography 03/24/16 1121 Signed Impressions: Service Date/Time: Thursday, March 24, 2016 12:47 - CONCLUSION: 1. There is respiratory motion artifact but no PE is identified through most of the segmental level pulmonary arteries. 2. Mildly enlarged main pulmonary artery may indicate pulmonary arterial hypertension. 3. 11 mm left lower lobe noncalcified pulmonary nodule. Suggest correlation with any prior imaging studies that could confirm longer-term stability. If none are available consider short-term followup noncontrast chest CT in approximately 3 months. Ubaldo Rodas MD Laboratory Test 05/02/16 06:40 White Blood Count 10.4 TH/MM3 Red Blood Count 4.13 MIL/MM3 Hemoglobin 11.2 GM/DL Hematocrit 34.5 % Mean Corpuscular Volume 83.5 FL Mean Corpuscular Hemoglobin 27.1 PG Mean Corpuscular Hemoglobin 32.4 % Concent Red Cell Distribution Width 16.3 % Platelet Count 192 TH/MM3 Mean Platelet Volume 8.6 FL Sodium Level 140 MEQ/L Potassium Level 3.2 MEQ/L Chloride Level 106 MEQ/L Carbon Dioxide Level 24.7 MEQ/L Anion Gap 9 MEQ/L Blood Urea Nitrogen 11 MG/DL Creatinine 0.48 MG/DL Estimat Glomerular Filtration 184 ML/MIN Rate Random Glucose 139 MG/DL Calcium Level 8.1 MG/DL Phosphorus Level 3.2 MG/DL Magnesium Level 1.9 MG/DL Date/Time Procedure Status Source Growth 04/27/16 11:34 Aerobic Blood Culture - Final Complete Blood Peripheral NO GROWTH IN 5 DAYS 04/27/16 11:34 Anaerobic Blood Culture - Final Complete Blood Peripheral NO GROWTH IN 5 DAYS Physical Examination HEENT: normocephalic; atraumatic; no jaundice. CHEST: Chest is clear to auscultation and percussion.via trach CARDIAC: Regular rate and rhythm ABDOMEN: Soft, nondistended, nontender; morbid obese, no hepatosplenomegaly; bowel sounds are present in all four quadrants. EXTREMITIES: No clubbing, cyanosis, or edema. SKIN: Gen. 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 (Khushi Moreno) Assessment and Plan Plan - Dysphagia/ENT- his is a 50 year old male with PMH of sleep apnea, super morbid obesity, type 2 diabetes with complicated long hospital stay for diagnosis of toxic metabolic encephalopathy, acute hypoxemic respiratory failure, staph aureus pneumonia, HCAP, ARDS. Currently patient is on C-pap trials through trach. He is in need for tube feed. GI have been consulted for PEG tube placement. I called brother at , no answer and left a message. Patient is not able to provide any HPI, most of information obtained from nurse and EMR. Plan: - TF through -Tito - NPO mn - EGD/PEG in am - Obtain consents, will try and call son again - Hold Lovenox after mn - He is already on abx - supportive care - Patient seen and examined by Dr Faith and myself and this note is written on his behalf. (Khushi Moreno) Physician Comments Patient seen and examined Agree with above Continue with current supportive care Monitor labs PEG placement tomorrow (Denis Faith MD) Khushi Moreno May 02, 2016 11:35 Denis Faith MD May 02, 2016 21:22
[2016-05-02] MEDS: RESP: ALBUTEROL 2.5 MG/IPRATROPIUM 0.5 MG NEB (PRN) NEB (12:08)
--- NOTE | 2016-05-02 14:40 | HHI.IDPN ---
Subjective Subjective Remarks Notes reviewed. D/W RN Did 4 hours CPAP, thenn had respiratory distress Temps ok S/P trach 04/30 On PRVC, PEEP down to 5, FiO2 at 45% Awake, following is a 50 years old obese male with past medical history significant for undiagnosed sleep apnea, super morbid obesity, type 2 diabetes was brought to the emergency department on 03/24/16. ID following for MSSA pneumonia. Antibiotics Clindamycin Lines PICC 04/15 Past Medical History Reviewed Allergies: Coded Allergies: Penicillin (Verified Allergy, Severe, Swelling, 03/24/16) Tetanus Toxoid (Verified Allergy, Unknown, Swelling, 03/24/16) Objective . Vital Signs Date Time Temp Pulse Resp B/P Pulse Ox O2 Delivery O2 Flow Rate FiO2 05/02/16 14:34 99.5 88 18 159/92 97 05/02/16 14:31 98 45 05/02/16 12:09 98 45 05/02/16 10:00 96 05/02/16 08:00 45 05/02/16 08:00 83 05/02/16 08:00 98.6 84 20 115/74 96 05/02/16 07:50 94 45 05/02/16 06:00 96 05/02/16 04:06 94 45 05/02/16 04:00 92 05/02/16 04:00 50 05/02/16 04:00 98.8 92 15 142/84 95 05/02/16 02:00 93 05/02/16 01:04 93 45 05/02/16 00:00 98.5 90 15 135/84 96 05/02/16 00:00 50 05/02/16 00:00 90 05/01/16 22:38 96 45 05/01/16 22:00 66 05/01/16 20:00 98.6 66 15 139/78 96 05/01/16 20:00 66 05/01/16 20:00 50 05/01/16 19:55 97 50 05/01/16 18:00 105 05/01/16 16:00 55 05/01/16 16:00 105 05/01/16 16:00 98.3 80 18 107/60 98 05/01/16 15:11 96 55 05/01/16 05/01/16 05/02/16 15:00 23:00 07:00 Intake Total 351 ml 315 ml 481 ml Output Total 450 ml 1250 ml 1400 ml Balance -99 ml -935 ml -919 ml IV Total 351 ml 315 ml 481 ml Tube Feeding 0 ml 0 ml Output Urine Total 450 ml 1250 ml 1400 ml # Bowel Movements 0 0 . Laboratory Tests Test 04/30/16 05/01/16 05/02/16 18:00 07:50 06:40 White Blood Count 10.8 TH/MM3 11.7 TH/MM3 10.4 TH/MM3 Red Blood Count 3.87 MIL/MM3 4.23 MIL/MM3 4.13 MIL/MM3 Hemoglobin 10.5 GM/DL 11.2 GM/DL 11.2 GM/DL Hematocrit 32.3 % 35.2 % 34.5 % Mean Corpuscular Volume 83.5 FL 83.3 FL 83.5 FL Mean Corpuscular Hemoglobin 27.1 PG 26.4 PG 27.1 PG Mean Corpuscular Hemoglobin 32.4 % 31.7 % 32.4 % Concent Red Cell Distribution Width 15.6 % 16.5 % 16.3 % Platelet Count 189 TH/MM3 204 TH/MM3 192 TH/MM3 Mean Platelet Volume 8.8 FL 8.7 FL 8.6 FL Neutrophils (%) (Auto) 87.8 % Lymphocytes (%) (Auto) 8.0 % Monocytes (%) (Auto) 4.0 % Eosinophils (%) (Auto) 0.1 % Basophils (%) (Auto) 0.1 % Neutrophils # (Auto) 9.5 TH/MM3 Lymphocytes # (Auto) 0.9 TH/MM3 Monocytes # (Auto) 0.4 TH/MM3 Eosinophils # (Auto) 0.0 TH/MM3 Basophils # (Auto) 0.0 TH/MM3 CBC Comment AUTO DIFF Differential Total Cells 100 Counted Neutrophils % (Manual) 86 % Band Neutrophils % 5 % Lymphocytes % 4 % Monocytes % 4 % Neutrophils # (Manual) 9.9 TH/MM3 Myelocytes 1 % Differential Comment FINAL DIFF MANUAL Platelet Estimate NORMAL Platelet Morphology Comment NORMAL Laboratory Tests Test 04/30/16 05/01/16 05/02/16 18:00 07:50 06:40 Sodium Level 140 MEQ/L 142 MEQ/L 140 MEQ/L Potassium Level 3.6 MEQ/L 3.9 MEQ/L 3.2 MEQ/L Chloride Level 106 MEQ/L 107 MEQ/L 106 MEQ/L Carbon Dioxide Level 24.5 MEQ/L 24.4 MEQ/L 24.7 MEQ/L Anion Gap 10 MEQ/L 11 MEQ/L 9 MEQ/L Blood Urea Nitrogen 20 MG/DL 21 MG/DL 11 MG/DL Creatinine 0.43 MG/DL 0.48 MG/DL 0.48 MG/DL Estimat Glomerular Filtration 209 ML/MIN 184 ML/MIN 184 ML/MIN Rate Random Glucose 172 MG/DL 109 MG/DL 139 MG/DL Calcium Level 7.3 MG/DL 8.4 MG/DL 8.1 MG/DL Protein Corrected Calcium 8.2 MG/DL Phosphorus Level 4.6 MG/DL 4.0 MG/DL 3.2 MG/DL Magnesium Level 2.1 MG/DL 2.2 MG/DL 1.9 MG/DL Total Protein 5.5 GM/DL Imaging Chest X-Ray 04/27/16 0000 Signed Impressions: Service Date/Time: Wednesday, April 27, 2016 13:37 - CONCLUSION: 1. Under aerated. 2. Support apparatus in good position. Bear Barton MD FACR Chest X-Ray 04/25/16 0000 Signed Impressions: Service Date/Time: Monday, April 25, 2016 13:33 - CONCLUSION: Stable chest Bernard Hartman MD Chest X-Ray 04/23/16 0600 Signed Impressions: Service Date/Time: Saturday, April 23, 2016 03:46 - CONCLUSION: Bilateral areas of consolidation or atelectasis being worse on the left. Ubaldo Coombs MD Abdomen X-Ray 03/31/16 0000 Signed Impressions: Service Date/Time: Thursday, March 31, 2016 09:58 - CONCLUSION: Benign abdomen. Rodrigo Martinez MD Chest CT 03/28/16 0836 Signed Impressions: Service Date/Time: Monday, March 28, 2016 09:57 - CONCLUSION: Development areas of air bronchograms and consolidation more prominent in the right and left posterior basilar segments of the lower lobes. ET tube above the chanelle. Bernard Hartman MD CT Angiography 03/24/16 1121 Signed Impressions: Service Date/Time: Thursday, March 24, 2016 12:47 - CONCLUSION: 1. There is respiratory motion artifact but no PE is identified through most of the segmental level pulmonary arteries. 2. Mildly enlarged main pulmonary artery may indicate pulmonary arterial hypertension. 3. 11 mm left lower lobe noncalcified pulmonary nodule. Suggest correlation with any prior imaging studies that could confirm longer-term stability. If none are available consider short-term followup noncontrast chest CT in approximately 3 months. Ubaldo Rodas MD Chest X-Ray 04/19/16 0000 Signed Impressions: Service Date/Time: April 03:20 - CONCLUSION: 1. Cardiomegaly and findings of congestive heart failure. There has been no significant change when compared to the prior exam. Kyaw Rojo MD Chest X-Ray 04/18/16 0000 Signed Impressions: Service Date/Time: Monday, April 18, 2016 09:59 - CONCLUSION: 1. Support equipment in good position. 2. Small left basilar effusion and consolidative changes in the left lower lobe and perihilar region on the right. Dc Barton MD Chest X-Ray 04/16/16 0600 Signed Impressions: Service Date/Time: Saturday, April 16, 2016 03:58 - CONCLUSION: 1. Cardiomegaly. Bilateral lower lobe atelectasis versus pneumonia. There has been no significant change when compared to the prior exam. Kyaw Rojo MD Abdomen X-Ray 03/31/16 0000 Signed Impressions: Service Date/Time: Thursday, March 31, 2016 09:58 - CONCLUSION: Benign abdomen. Rodrigo Martinez MD Chest CT 03/28/16 0836 Signed Impressions: Service Date/Time: Monday, March 28, 2016 09:57 - CONCLUSION: Development areas of air bronchograms and consolidation more prominent in the right and left posterior basilar segments of the lower lobes. ET tube above the chanelle. Bernard Hartman MD CT Angiography 03/24/16 1121 Signed Impressions: Service Date/Time: Thursday, March 24, 2016 12:47 - CONCLUSION: 1. There is respiratory motion artifact but no PE is identified through most of the segmental level pulmonary arteries. 2. Mildly enlarged main pulmonary artery may indicate pulmonary arterial hypertension. 3. 11 mm left lower lobe noncalcified pulmonary nodule. Suggest correlation with any prior imaging studies that could confirm longer-term stability. If none are available consider short-term followup noncontrast chest CT in approximately 3 months. Ubaldo Rodas MD Chest X-Ray 04/12/16 06 Signed Impressions: Service Date/Time: April 04:14 - CONCLUSION: Worsening appearance of the chest. Henrry Andrea MD Chest X-Ray 04/11/16 0000 Signed Impressions: Service Date/Time: Monday, April 11, 2016 04:09 - CONCLUSION: No significant change has occurred. Henrry Andrea MD Chest X-Ray 04/09/16 0900 Signed Impressions: Service Date/Time: Saturday, April 09, 2016 09:12 - CONCLUSION: 1. Diffuse alveolar consolidation of the left lung and right upper lung field consistent with pneumonia and/or asymmetric pulmonary edema. Clinical correlation is recommended. 2. Endotracheal tube has its tip 1 cm above the chanelle. This could be pulled back 2 cm for more optimal position. Farhat Montes MD Chest X-Ray 04/05/16599 Signed Impressions: Service Date/Time: April 03:25 - CONCLUSION: 1. Improved basilar consolidation. Residual versus developing right midlung consolidation. 2. Small bilateral pleural effusions are suspected. 3. No change cardiomegaly or lines/tubes. Ubaldo Ortiz MD Chest X-Ray 04/04/16599 Signed Impressions: Service Date/Time: Monday, April 04, 2016 04:44 - CONCLUSION: Worsening bilateral airspace opacities, especially left perihilar. Ubaldo Ortiz MD Chest X-Ray 04/04/16599 Signed Impressions: Service Date/Time: Monday, April 04, 2016 04:44 - CONCLUSION: Worsening bilateral airspace opacities, especially left perihilar. Ubaldo Ortiz MD Chest X-Ray 04/03/16 06 Signed Impressions: Service Date/Time: Sunday, April 03, 2016 00:16 - CONCLUSION: Potential developing pneumonia in the right upper lobe. Bibasilar atelectasis modestly worse in the interim. Ubaldo Ortiz MD Chest X-Ray 04/03/16 06 Signed Impressions: Service Date/Time: Sunday, April 03, 2016 00:16 - CONCLUSION: Potential developing pneumonia in the right upper lobe. Bibasilar atelectasis modestly worse in the interim. Ubaldo Ortiz MD Chest X-Ray 04/02/16 0965 Signed Impressions: Service Date/Time: Saturday, April 02, 2016 09:22 - CONCLUSION: Place a right jugular catheter terminates superior vena cava with no pneumothorax. Bernard Hartman MD Physical Exam GENERAL: on the vent, NAD. Awake and interacting SKIN: Warm and dry. No generalized rash HEENT: No icterus, moist mucosa NECK: Trach in place, site ok CHEST: Coarse BS bilaterally, decreased at bases CARDIAC: regular, no murmur ABDOMEN: soft, obese, (+) BS : Becker in place, urine looks clear MUSCULOSKELETAL: Extremities without clubbing, cyanosis. No edema NEUROLOGICAL: Awake and interacting PSYCH: Awake, cooperative LINE: No evidence of infection Assessment & Plan Remarks IMPRESSION Leukocytosis, resolved - has been on adequate Abx for pathogens isolated Pneumonia, C/S MSSA - Last CXR stable - S/P RX Sputum with persistent MSSA JACOB Respiratory failure Morbid obesity Allergy to PCN, swelling Fevers, recurrent - has (+) BC, Staph epi one out 2 BC, has new line PICC - ?new VAP, has MSSA again RECOMMENDATION Monitor temps Continue IV Clindamycin, plan 7 days Monitor progress Weaning per CCM D/W Elisha Archer MD May 02, 2016 14:40
--- NOTE | 2016-05-02 14:42 | HHI.HCPN ---
Reason for visit a. To assist with evaluation and management of symptoms including: Dyspnea, anxiety b. To assist medical decision maker(s) with: better understanding of current medical conditions; weighing benefits/burdens of medical treatment options; making medical treatment decisions. Subjective/Interval History Patient seen and examined in ICU. No family present. Remains on mech vent. Tolerating intermittent CPAP trials. Still on sedation fentanyl (250) and Precedex. He is awake and alert, mouths some words, though I am having difficulty understanding what he is trying to say. He nods yes/ no to questions. Denies pain or anxiety. Reports some anxiety. Nurse reports he has been restless despite sedation. No new labs today. Afebrile. Vital signs stable. No new imaging. Patient is diaphoretic during my visit. Discussed with primary nurse, Armin. Plan for PEG tube on 04/05/16 per nurse. . Family/friend interactions No family at bedside. Nurse and GI are trying to reach brother to obtain consent for PEG tube. . Advance Directives Living Will: Completed, but not made available Health Care Surrogate: Copy in medical record Durable Power of Exhaust Equipment Operator: Completed, but not made available Advance Directive Specifics Date completed: 2016 Health Care Surrogate(s): Names brother Farhat Leger as HCS Significant change in goals: FULL CODE. Family has desired continued aggressive care. . Objective Vital Signs Date Time Temp Pulse Resp B/P Pulse Ox O2 Delivery O2 Flow Rate FiO2 05/02/16 12:09 98 45 05/02/16 10:00 96 05/02/16 08:00 45 05/02/16 08:00 83 05/02/16 08:00 98.6 84 20 115/74 96 05/02/16 07:50 94 45 05/02/16 06:00 96 05/02/16 04:06 94 45 05/02/16 04:00 92 05/02/16 04:00 50 05/02/16 04:00 98.8 92 15 142/84 95 05/02/16 02:00 93 05/02/16 01:04 93 45 05/02/16 00:00 98.5 90 15 135/84 96 05/02/16 00:00 50 05/02/16 00:00 90 05/01/16 22:38 96 45 05/01/16 22:00 66 05/01/16 20:00 98.6 66 15 139/78 96 05/01/16 20:00 66 05/01/16 20:00 50 05/01/16 19:55 97 50 05/01/16 18:00 105 05/01/16 16:00 55 05/01/16 16:00 105 05/01/16 16:00 98.3 80 18 107/60 98 05/01/16 15:11 96 55 Intake & Output 05/02/16 05/02/16 07:00 19:00 Intake Total 796 ml Output Total 2650 ml Balance -1854 ml IV Total 796 ml Tube Feeding 0 ml Output Urine Total 2650 ml # Bowel Movements 0 Physical Exam CONSTITUTIONAL/GENERAL: This is a morbidly obese patient, in ICU on mechanical vent TUBES/LINES/DRAINS: trach, NG tube, central line, Becker catheter, wrist restraints, SCDs SKIN: No jaundice, rashes, or lesions.no wounds seen posteriorly. + generalized edema CARDIOVASCULAR: Regular rate and rhythm, no murmurs. Distant heart sounds. RESPIRATORY/CHEST: Symmetric, unlabored respirations via trach to mechanical vent. Decreased air movement throughout, clear, equal bilaterally. GASTROINTESTINAL: Abdomen soft, obese. Unable to determine to tenderness. Bowel sounds +, distant. MUSCULOSKELETAL: Extremities without clubbing, cyanosis. + generalized edema NEUROLOGICAL: Sedated, awake and alert. Able to follow some commands. Mouths words difficult to understand. Moves all extremities. PSYCHIATRIC: Nods yes to anxiety. . Diagnostic Tests Laboratory Laboratory Tests Test 04/30/16 04/30/16 05/01/16 05/02/16 03:00 18:00 07:50 06:40 White Blood Count 12.5 TH/MM3 10.8 TH/MM3 11.7 TH/MM3 10.4 TH/MM3 (4.0-11.0) (4.0-11.0) (4.0-11.0) (4.0-11.0) Red Blood Count 4.13 MIL/MM3 3.87 MIL/MM3 4.23 MIL/MM3 4.13 MIL/MM3 (4.50-5.90) (4.50-5.90) (4.50-5.90) (4.50-5.90) Hemoglobin 11.0 GM/DL 10.5 GM/DL 11.2 GM/DL 11.2 GM/DL (13.0-17.0) (13.0-17.0) (13.0-17.0) (13.0-17.0) Hematocrit 34.4 % 32.3 % 35.2 % 34.5 % (39.0-51.0) (39.0-51.0) (39.0-51.0) (39.0-51.0) Mean Corpuscular Volume 83.4 FL 83.5 FL 83.3 FL 83.5 FL (80.0-100.0) (80.0-100.0) (80.0-100.0) (80.0-100.0) Mean Corpuscular Hemoglobin 26.7 PG 27.1 PG 26.4 PG 27.1 PG (27.0-34.0) (27.0-34.0) (27.0-34.0) (27.0-34.0) Mean Corpuscular Hemoglobin 32.0 % 32.4 % 31.7 % 32.4 % Concent (32.0-36.0) (32.0-36.0) (32.0-36.0) (32.0-36.0) Red Cell Distribution Width 15.7 % 15.6 % 16.5 % 16.3 % (11.6-17.2) (11.6-17.2) (11.6-17.2) (11.6-17.2) Platelet Count 202 TH/MM3 189 TH/MM3 204 TH/MM3 192 TH/MM3 (150-450) (150-450) (150-450) (150-450) Mean Platelet Volume 9.2 FL 8.8 FL 8.7 FL 8.6 FL (7.0-11.0) (7.0-11.0) (7.0-11.0) (7.0-11.0) Neutrophils (%) (Auto) 81.6 % 87.8 % (16.0-70.0) (16.0-70.0) Lymphocytes (%) (Auto) 13.3 % 8.0 % (9.0-44.0) (9.0-44.0) Monocytes (%) (Auto) 4.0 % (0.0-8.0) 4.0 % (0.0-8.0) Eosinophils (%) (Auto) 0.7 % (0.0-4.0) 0.1 % (0.0-4.0) Basophils (%) (Auto) 0.4 % (0.0-2.0) 0.1 % (0.0-2.0) Neutrophils # (Auto) 10.2 TH/MM3 9.5 TH/MM3 (1.8-7.7) (1.8-7.7) Lymphocytes # (Auto) 1.7 TH/MM3 0.9 TH/MM3 (1.0-4.8) (1.0-4.8) Monocytes # (Auto) 0.5 TH/MM3 0.4 TH/MM3 (0-0.9) (0-0.9) Eosinophils # (Auto) 0.1 TH/MM3 0.0 TH/MM3 (0-0.4) (0-0.4) Basophils # (Auto) 0.0 TH/MM3 0.0 TH/MM3 (0-0.2) (0-0.2) CBC Comment AUTO DIFF AUTO DIFF Differential Total Cells 100 100 Counted Neutrophils % (Manual) 89 % (16-70) 86 % (16-70) Band Neutrophils % 1 % (0-6) 5 % (0-6) Lymphocytes % 6 % (9-44) 4 % (9-44) Monocytes % 3 % (0-8) 4 % (0-8) Eosinophils % 1 % (0-4) Neutrophils # (Manual) 11.3 TH/MM3 9.9 TH/MM3 (1.8-7.7) (1.8-7.7) Differential Comment FINAL DIFF FINAL DIFF MANUAL MANUAL Platelet Estimate NORMAL NORMAL (NORMAL) (NORMAL) Platelet Morphology Comment NORMAL NORMAL (NORMAL) (NORMAL) Red Cell Morphology Comment NORMAL (NORMAL) Sodium Level 143 MEQ/L 140 MEQ/L 142 MEQ/L 140 MEQ/L (136-145) (136-145) (136-145) (136-145) Potassium Level 3.3 MEQ/L 3.6 MEQ/L 3.9 MEQ/L 3.2 MEQ/L (3.5-5.1) (3.5-5.1) (3.5-5.1) (3.5-5.1) Chloride Level 104 MEQ/L 106 MEQ/L 107 MEQ/L 106 MEQ/L (98-107) (98-107) (98-107) (98-107) Carbon Dioxide Level 26.9 MEQ/L 24.5 MEQ/L 24.4 MEQ/L 24.7 MEQ/L (21.0-32.0) (21.0-32.0) (21.0-32.0) (21.0-32.0) Anion Gap 12 MEQ/L (5-15) 10 MEQ/L (5-15) 11 MEQ/L (5-15) 9 MEQ/L (5-15) Blood Urea Nitrogen 25 MG/DL (7-18) 20 MG/DL (7-18) 21 MG/DL (7-18) 11 MG/DL (7- 18) Creatinine 0.45 MG/DL 0.43 MG/DL 0.48 MG/DL 0.48 MG/DL (0.60-1.30) (0.60-1.30) (0.60-1.30) (0.60-1.30) Estimat Glomerular Filtration 199 ML/MIN 209 ML/MIN 184 ML/MIN 184 ML/MIN Rate (>89) (>89) (>89) (>89) Random Glucose 126 MG/DL 172 MG/DL 109 MG/DL 139 MG/DL (74-106) (74-106) (74-106) (74-106) Calcium Level 8.8 MG/DL 7.3 MG/DL 8.4 MG/DL 8.1 MG/DL (8.5-10.1) (8.5-10.1) (8.5-10.1) (8.5-10.1) Phosphorus Level 3.9 MG/DL 4.6 MG/DL 4.0 MG/DL 3.2 MG/DL (2.5-4.9) (2.5-4.9) (2.5-4.9) (2.5-4.9) Magnesium Level 2.5 MG/DL 2.1 MG/DL 2.2 MG/DL 1.9 MG/DL (1.5-2.5) (1.5-2.5) (1.5-2.5) (1.5-2.5) Myelocytes 1 % (0-0) Protein Corrected Calcium 8.2 MG/DL (8.5-10.1) Total Protein 5.5 GM/DL (6.4-8.2) Result Diagram: 05/02/16 0640 05/02/16 0640 Imaging Last Impressions Chest X-Ray 05/01/16 0600 Signed Impressions: Service Date/Time: Sunday, May 01, 2016 05:47 - CONCLUSION: 1. Support apparatus in satisfactory position. Mild basilar airspace disease. No significant change compared with April 30. Kyle Lorenzo MD Abdomen X-Ray 05/01/16 0000 Signed Impressions: Service Date/Time: Sunday, May 01, 2016 17:28 - CONCLUSION: No evidence of obstruction. Feeding tube overlies the distal stomach, May have to be advanced slightly to reach the duodenum. Nick Jon MD Chest CT 03/28/16 0836 Signed Impressions: Service Date/Time: Monday, March 28, 2016 09:57 - CONCLUSION: Development areas of air bronchograms and consolidation more prominent in the right and left posterior basilar segments of the lower lobes. ET tube above the chanelle. Bernard Hartman MD CT Angiography 03/24/16 1121 Signed Impressions: Service Date/Time: Thursday, March 24, 2016 12:47 - CONCLUSION: 1. There is respiratory motion artifact but no PE is identified through most of the segmental level pulmonary arteries. 2. Mildly enlarged main pulmonary artery may indicate pulmonary arterial hypertension. 3. 11 mm left lower lobe noncalcified pulmonary nodule. Suggest correlation with any prior imaging studies that could confirm longer-term stability. If none are available consider short-term followup noncontrast chest CT in approximately 3 months. Ubaldo Rodas MD Procedures 03/26intubated 03/26 left IJ central line 04/02right IJ central line . Assessment and Plan Disease Oriented Problem List: (1) Acute respiratory failure with hypoxia (2) Staphylococcus aureus pneumonia (3) Pulmonary edema (4) Hypoxia (5) JACOB (obstructive sleep apnea) (6) Pulmonary nodule, left (7) Obesity hypoventilation syndrome (8) Morbid obesity with BMI of 50.0-59.9, adult (9) Diabetes mellitus type 2 in obese Symptom Scale: (1) Anxiety 0-10 Scale: Unable to quantify (2) Dyspnea 0-10 Scale: Unable to quantify (3) Encephalopathy 0-10 Scale: Unable to quantify Pertinent Non-Medical Issues Psychosocial:Patient is , shares an apartment locally with his brother. Apparently has 2 other siblings as well as 2 adult children who live in the [place] area. Has designated his brother Farhat as healthcare surrogate. 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 Spiritual: Legal:Patient is not able to participate in decision-making due to clinical condition. Has completed designation naming his brother Farhat as [facility]. Ethical issues impacting care: Important Contacts brother Farhat Leger [phone] ([facility]) Brother Gagandeep Leger [phone] . Prognosis This patient was admitted for further evaluation of obesity hypoventilation syndrome; absolutely developed acute respiratory failure requiring mechanical ventilation. Has continued to require high levels of ventilator support, though other organ functions remain preserved. Possible he can recover from this however currently remains in critical condition, prognosis guarded. . Code Status: Full Code (per attending documentation ) Plan * FULL CODE - per patient's brother Farhat * DECISION-MAKING: Patiently currently unable to participate in goals / decision -making due to clinical condition. It is not clear if he will regain decision- making capacity. He has designated his brother Farhat as healthcare surrogate. * GOALS: Goals remain aggressive. Plan for PEG tube on 05/03/16 per nurse. Per prior Pal Care conversations "04/11/16: Farhat ([facility]) says he has spoken with the patient's two daughters in [place] and they want to continue aggressive care and FULL CODE status. He says he, the [facility], would lean toward de- escalation of care but he wants to honor the daughter's wishes for continued aggressive care. 04/16/16 --met with daughters as well as brother. Family seems to have overall good understanding. They remain cautiously optimistic. Goals remain aggressive. 04/27/16 -- other brother arrived, sharing that he himself had respiratory failure and a tracheostomy "and survived."" * SYMPTOMS: -- Dyspnea-emergently intubated, has remained on high ventilator settings as well as prone bed-- prone bed d/c. Currently breathing comfortably on mechanical vent via trach. (IV fentanyl, Versed ) -- Anxiety- risk for related to prolonged intubation, hospitalization, underlying respiratory issues; currently appears comfortable on multiple sedatives (IV fentanyl, Precedex) as becomes more alert/responsive will need ongoing assessments. -- Encephalopathy: Multifactorial, metabolic. Improving. * Palliative care will continue to follow during hospital course as condition evolves, to assist patient/decision-maker with understanding of medical conditions, weighing benefits/burdens of treatment options, for clarification of goals of treatment. Additionally will assist with any symptoms of palliative concern Attestation To help prompt me to consider important information that might be impacting today's encounter and assessment, information from prior notes written by myself or my colleagues may have been "brought forward" into today's note. My signature on this note, however, is an attestation that I personally performed the exam, history, and/or decision-making noted today, and, unless otherwise indicated, the interactions with patient, family, and staff as well as the review of records all occurred today. I also attest that the listed assessment and stated plan reflect my best clinical judgment today based on the combination of historical information, prior notes, and today's exam/ interactions. When time spent is documented, it refers only to time spent today by the signer, or if indicated, combined time spent today by collaborating physician/nurse practitioner. CYNTHIA HYLTON May 02, 2016 14:42
[2016-05-02] MEDS ORDERED: MIDAZOLAM HCL 5 MG/ML VIAL (1 ML) ONE (16:14)
[2016-05-02] MEDS ORDERED: LORazepam 2 MG/ML VIAL ONE (16:15)
[2016-05-02] MEDS ORDERED: MIDAZOLAM HCL 5 MG/ML VIAL (1 ML) IV ONE (16:30)
--- NOTE | 2016-05-02 17:08 | HHI.PR ---
Subjective Remarks ON THE VENT SEDATED FIO2 AT 50% Objective Vital Signs Date Time Temp Pulse Resp B/P Pulse Ox O2 Delivery O2 Flow Rate FiO2 05/02/16 14:34 99.5 88 18 159/92 97 05/02/16 14:31 98 45 05/02/16 14:00 96 05/02/16 12:09 98 45 05/02/16 12:00 96 05/02/16 12:00 45 05/02/16 10:00 96 05/02/16 08:00 45 05/02/16 08:00 83 05/02/16 08:00 98.6 84 20 115/74 96 05/02/16 07:50 94 45 05/02/16 06:00 96 05/02/16 04:06 94 45 05/02/16 04:00 92 05/02/16 04:00 50 05/02/16 04:00 98.8 92 15 142/84 95 05/02/16 02:00 93 05/02/16 01:04 93 45 05/02/16 00:00 98.5 90 15 135/84 96 05/02/16 00:00 50 05/02/16 00:00 90 05/01/16 22:38 96 45 05/01/16 22:00 66 05/01/16 20:00 98.6 66 15 139/78 96 05/01/16 20:00 66 05/01/16 20:00 50 05/01/16 19:55 97 50 05/01/16 18:00 105 I/O 05/01/16 05/01/16 05/01/16 05/02/16 05/02/16 05/02/16 07:00 15:00 23:00 07:00 15:00 23:00 Intake Total 405 ml 351 ml 315 ml 481 ml 977 ml Output Total 300 ml 450 ml 1250 ml 1400 ml 1000 ml Balance 105 ml -99 ml -935 ml -919 ml -23 ml IV Total 405 ml 351 ml 315 ml 481 ml 777 ml Tube Feeding 0 ml 0 ml 0 ml Other 200 ml Output Urine Total 300 ml 450 ml 1250 ml 1400 ml 1000 ml # Bowel Movements 0 0 0 Result Diagram: 05/02/1640 05/02/1640 Objective Remarks GENERAL: SKIN: Warm and dry. HEAD: Atraumatic. Normocephalic. EYES: Pupils equal and round. No scleral icterus. No injection or drainage. ENT: No nasal bleeding or discharge. Mucous membranes pink and moist. NECK: Trachea midline. No JVD. CARDIOVASCULAR: Regular rate and rhythm. RESPIRATORY: No accessory muscle use. Clear to auscultation. Breath sounds equal bilaterally. GASTROINTESTINAL: Abdomen soft, non-tender, nondistended. Hepatic and splenic margins not palpable. MUSCULOSKELETAL: Extremities without clubbing, cyanosis, or edema. No obvious deformities. NEUROLOGICAL: Awake and alert. No obvious cranial nerve deficits. Motor grossly within normal limits. Five out of 5 muscle strength in the arms and legs. Normal speech. PSYCHIATRIC: Appropriate mood and affect; insight and judgment normal. Assessment and Plan Assessment and Plan RESPIRATORY FAILURE SEPSIS ARDS JACOB/CSA PLAN VENT SUPPORT FIO2 0.5 PULM TOILET WEAN TOLERATED. CHECK ABG , CXRAY FOR TRACHEOSTOMY TODAY Orlando Perry MD May 02, 2016 17:08
[2016-05-02] MEDS: PANTOPRAZOLE SODIUM 40 MG VIAL IV PUSH SCH (18:00)
[2016-05-02] MEDS: DEXMEDETOMIDINE INJ 1,000 MCG in SODIUM CHLOR 0.9% 250 ML INJ 250 ML IV SCH (19:48)
[2016-05-02] MEDS: LORazepam 2 MG/ML VIAL IVP PRN (20:55)
[2016-05-02] MEDS: hydrALAZINE HCL 20 MG/ML VIAL IV PUSH PRN (22:14)
[2016-05-03] VITALS (19 sets, daily range): BP systolic 110–139; BP diastolic 68–72; PULSE 65–83; RESP 15–19; TEMP 98.8–101; O2SAT 96–98
[2016-05-03] MEDS: DEXMEDETOMIDINE INJ 1,000 MCG in SODIUM CHLOR 0.9% 250 ML INJ 250 ML IV SCH ×5 (00:30→23:31)
[2016-05-03] MEDS: ARTIFICIAL TEARS OPTH SOLN 15 ML BTL EACH EYE SCH ×6 (02:00→20:49)
[2016-05-03] MEDS: LORazepam 2 MG/ML VIAL IVP PRN ×2 (02:41→20:41)
[2016-05-03] MEDS: METOCLOPRAMIDE HCL 10 MG/2 ML VIAL IV PUSH SCH ×3 (05:18→20:48)
[2016-05-03] MEDS: CLINDAMYCIN INJ 600 MG in SODIUM CHLORIDE 0.9% INJ 100 ML IV SCH ×3 (05:18→20:42)
[2016-05-03 05:23] LABS: AUTOMATED NEUTROPHIL # 9.6 TH/MM3 (1.8-7.7); BASOPHIL % 0.4 % (0.0-2.0); EOSINOPHIL # 0.1 TH/MM3 (0-0.4); EOSINOPHIL % 0.6 % (0.0-4.0); HEMATOCRIT 35.5 % (39.0-51.0); LYMPH % 12.3 % (9.0-44.0); LYMPHOCYTE # 1.4 TH/MM3 (1.0-4.8); MEAN CELL VOLUME 82.5 FL (80.0-100.0); MEAN CORPUSCULAR HEMOGLOBIN 27.5 PG (27.0-34.0); MEAN CORPUSCULAR HGB CONC 33.3 % (32.0-36.0); MONO % 4.7 % (0.0-8.0); PLATELET COUNT 192 TH/MM3 (150-450); RED BLOOD COUNT 4.31 MIL/MM3 (4.50-5.90); WHITE BLOOD COUNT 11.7 TH/MM3 (4.0-11.0)
[2016-05-03 05:33] LABS: HEMO FLAGS AUTO DIFF
[2016-05-03] MEDS: POTASSIUM CHLOR 20 MEQ PREMIX 100 ML IV PRN (05:35)
[2016-05-03 05:43] LABS: BICARBONATE 23.7 MEQ/L (21.0-32.0); MAGNESIUM 1.8 MG/DL (1.5-2.5); POTASSIUM 3.2 MEQ/L (3.5-5.1)
[2016-05-03] MEDS: INSULIN NovoLIN REGULAR SUPPLEMENTAL SCALE SQ SCH ×5 (06:00→23:40)
--- NOTE | 2016-05-03 06:15 | RADRPT ---
EXAM DATE/TIME: 05/03/2016 04:08 [facility] COMPARISON: CHEST SINGLE AP, May 01, 2016, 5:47. INDICATIONS : Shortness of breath, possible pulmonary disease. MEDICAL HISTORY : Diabetes mellitus type II. SURGICAL HISTORY : Tracheostomy ENCOUNTER: Subsequent ACUITY: 1 month PAIN SCORE: Non-responsive. LOCATION: Bilateral chest FINDINGS: A single view of the chest demonstrates subsegmental air space disease in the lungs. Cardiomegaly. Le ft-sided PICC line in superior vena cava. Tracheostomy present. Feeding tube tip in stomach. CONCLUSION: 1. Subsegmental airspace disease in the lungs. Cardiomegaly. Kyle Lorenzo MD on May 03, 2016 at 6:11 Board Certified Radiologist. This report was verified electronically.
[2016-05-03] MEDS: hydrALAZINE HCL 20 MG/ML VIAL IV PUSH PRN (06:20)
[2016-05-03] MEDS: ARTIFICIAL TEARS OPTH OINT 3.5 APPLIC/3.5 GM TUBO EACH EYE SCH ×2 (08:02→20:48)
[2016-05-03] MEDS: POLYETHYLENE GLYCOL 17 GM PKG PO SCH ×2 (08:04→20:42)
[2016-05-03] MEDS: BETAMETHASONE/CLOTRIMAZOLE CREAM 15 GM TOPICAL SCH ×2 (08:04→20:48)
[2016-05-03] MEDS: CHLORHEXIDINE 0.12% (ORAL KIT) 15 ML CUP MT SCH ×2 (08:04→20:42)
[2016-05-03] MEDS: SENNOSIDES SYRUP 8.8 MG/5 ML CUP PO/TUBE SCH ×2 (08:04→20:42)
[2016-05-03] MEDS: NYSTATIN 100,000 U/GM PWD 15 GM BTL TOPICAL SCH ×2 (08:04→20:48)
[2016-05-03] MEDS: LACTOBACILLUS ACIDOPHILUS TAB PO SCH ×3 (08:05→17:23)
[2016-05-03] MEDS: ACETAMINOPHEN/HYDROcodone 325 MG/5 MG TAB PO SCH ×3 (08:05→20:43)
[2016-05-03] MEDS: DOCUSATE SODIUM 100 MG/10 ML UDC PO SCH ×2 (08:06→20:42)
[2016-05-03] MEDS: methylPREDNISolone SOD SUCC 40 MG/1 ML VIAL IV PUSH SCH (08:08)
[2016-05-03] MEDS: INSULIN DETEMIR 100 UNITS/ML VIAL SQ SCH ×2 (08:08→20:43)
[2016-05-03] MEDS: SODIUM CHLORIDE 0.9% FLUSH 5 ML FLUSH IVF SCH (08:10)
[2016-05-03] MEDS: BENEPROTEIN POWDER 1 PACK G-TUBE SCH ×3 (08:24→16:59)
[2016-05-03 10:01] LABS: BANDS 9 % (0-6); BASOPHILS 1 % (0-2); MYELOCYTES 2 % (0-0); NEUTROPHIL # MANUAL DIFF 10.9 TH/MM3 (1.8-7.7); PLATELET ESTIMATE SMEAR NORMAL (NORMAL); PLATELET MORPHOLOGY NORMAL (NORMAL); POLYS (SEG NEUTROPHILS) 82 % (16-70); WBC DIFF SAMPLE 100
[2016-05-03 10:02] LABS: SCAN/DIFF FINAL DIFF MANUAL
--- NOTE | 2016-05-03 10:11 | HHI.CCPN ---
Subjective Remarks/Hospital Course Patient is a 50 years old obese male with past medical history significant for undiagnosed sleep apnea, super morbid obesity, type 2 diabetes was brought to the emergency department on 03/24/16 after feeling light headed and dizzy. On presentation here was found to be hypoxemic and ABG showed severe hypoxemia and hypercarbia. For a recent driving physical he was diagnosed with low oxygen saturations. Patient's oxygen saturation the ED was in the low 80s, which was confirmed on ABG with a oxygen saturation of 78% and PO2 of 46. CTA negative for PE. Patient was initiated on BiPAP therapy with consult to pulmonary Dr. Crane. His oxygenation improved but he continued to be hypercapnic. Today a.m. on nasal cannula his pH was 7.26 and PCO2 was increased at 99, patient was somnolent was placed back on BiPAP and repeat ABG at noon showed pH 7.26 PCO2 98 and pO2 70. This was on 16 BiPAP with FiO2 50%. Critical care was consulted. On my evaluation patient is somnolent but wakes up easily. I reduced the PEEP on BiPAP from 12-7 to facilitate better ventilation. A repeat ANG showed only minimal improvement, so decision made to intubate patient. Glidescope with #4 blade was used. Only propofol was used for induction. Initially I had a Grade 1-2 view, but I was unable to pass tube through the vocal cord to trachea in two attempts. Tube slipped out of Laryngeal opening both times. Dr Garrett intubated patient after NM paralysis with succinylcholine. Post intubation ABG showed improvement in hypercapnia and oxygenation. 03/27/16: Patient remains intubated heavily sedated with propofol and fentanyl. Remained severely hypoxemic on 100% FiO2, PEEP12, chest x-ray shows bibasilar infiltrates. Flagyl added. We'll give 1 dose of vancomycin-Adjust antibiotics according to cultures. Patient super morbid obesity may prevent Prone therapy 03/28: Remains hypoxic but ABG shows marginal improvement in oxygenation. WBC increasing 20.1 today. Start vancomycin scheduled. 03/29: Oxygenation is slightly improved. FiO2 reduced to 50% today. Chest x- ray remains unchanged. On sedation hold patient does wake up and follow commands. WBC count remains at 20 03/30 No acute events overnight. Sedated with Diprivan and Fentanyl. Had T: 100.1 at 4 am. WBC trending down 15.9 today from 20. 03/31 Patient remains sedated with Diprivan, Fentanyl and intubated. Tmax 100.1. Patient required increase O2 overnight now on ACV with PEEP: 12 and FIO2 70%. 04/01: Tmax 99.7. No bowel movement since admission. Patient has bowel sounds. Arousable on the ventilator. We'll attempt prone the patient paralyzed to increase oxygenation status. 04/02: MAXIMUM TEMPERATURE 100.9. Currently 97.7. 5 10 cc stools overnight. Placed on Roto prone yesterday. Saturations currently 94% on Flolan. Diuresed overnight. Creatinine still within normal limits. 04/03: Tmax 101. Currently 99.1. Positive BM. Did not tolerate not being unprone this AM. Saturations much improved prone. Tolerating tube feeding. 04/04: Tmax 100.8. Currently 98.8. +2 L past 24 hours. Attempt to on prone today. Positive BM. C. difficile negative. Remains paralyzed. 04/05: Remains sedated, orally intubated on neuromuscular blockade on mechanical ventilation. Remains on Rota prone bed. On insulin drip. 04/06: Remains sedated, orally intubated on neuromuscular blockade, on mechanical ventilation. Remains on Rota prone bed. Insulin drip continues. 04/07 Patient remains on Rotoprone bed sedated with Diprivan, Versed, Fentanyl in addition patient is on Nimbex. Afebrile. On Insulin drip 5u/hr. 04/08 Patient remains sedated and intubated and on Nimbex. Off insulin drip. On PRVC/AC with RR 15, TV 550, IT: 1.65, PEEP: 15 and FIO2 100%. T: 100.2 at 4 am. 04/09 Patient is sedated, intubated and remains on neuromuscular blockade. Vent setting unchanged. afebrile. 04/10 Patient remains sedated and intubated and on Nimbex. On PRVC/AC, RR 15, TV 500, PEEP: 15, FIO2 90%, IT:1.65, on Flolan drip. Remains on Rotoprone bed. 04/11 minimal improvement in oxygenation, FiO2 now at 75 - continue to improve oxygenation, worsening CXR 04/13/10 continue to improve oxygenation DC'd prone position last night 04/14- improving oxygenation, Nimbex discontinued as well as prone position 04/16 Patient is sedated with Versed and Fentanyl and intubated. Off rotoprone bed. On PRVC/AC RR 15, TV 550, IT 1.65, PEEP:15, FIO2 50%. 04/17 Patient remains sedated with Versed and Fentanyl. Afebrile, tolerating tube feeds 04/18 No acute events overnight Sedated and intubated. Afebrile. On PRVC/AC RR 15 , TV 550, IT 1.65, PEEP:15, FIO2 60% 04/19: Spiking fever up to 101, pancultured and 1 dose of vancomycin given by ID. On weaning doses of Flolan. FiO2 down to 50% I have reduced PEEP to 14. Remains critically ill 04/20: No fever. Sputum cx with Staph -S pending. Fio2 50% PEEP remains at 14. TV increased to 650 to improve lung recruitment. On weaning dose of Flolan-DC after current bag 04/21:Afebrile. Hyponatremia resolving, the patient will be placed on free water flushes. 04/22:The patient had an episode of acute desaturation requiring FiO2 increased to 90%. Stat chest x-ray stat ABG aggressive pulmonary toileting and suctioning , resolution of symptoms FiO2 now 55%. ABGs within normal limits. 04/23: Tmax 99.5. Currently afebrile. O2 sat 50%. PEEP down to 13. One small bowel movement overnight. 04/24: Currently afebrile. O2 sat 45%. PEEP to 12. One BM. Tolerating tube feeds. 04/25: Afebrile. PEEP down to 11. Positive BM. Tolerating tube feeds. Awake on the ventilator with eyes open. 04/26: Afebrile. PEEP down to 10. Time to feeding. Awake and alert eyes open. 04/27: Suspected fever overnight. One bowel movement documented. Will decreased PEEP to 9. Awake and alert and follows commands. 04/28: Tmax 99.3. Currently afebrile. FiO2 increased to 70%. PEEP to 10. Awake and does follow commands. Positive BM 4 yesterday. Subjective 04/29: FiO2 down to 55%. Peak systolic 10. Awake and does follow commands. Positive BM 1 yesterday. Tolerating tube feeding. 04/30: No acute issues overnight . The patient continues to be sedated with plans for tracheostomy in the OR today. The patient follows commands when on sedation vacation. 05/01: Postop day 1 post tracheostomy tube placement, no issues overnight. Plan for CPAP trials today. 05/02: Afebrile. The patient continues on CPAP trial 15/5 , FiO2 .45%. The patient alert and responsive this a.m., continues on Precedex and fentanyl infusion. By mouth narcotics, and fentanyl patch instituted to transition all fentanyl infusion. PEG tube placement pending. 05/03: The patient's fentanyl infusion was discontinued last evening. Multimodal analgesia initiated. Patient continues on Precedex infusion, GCS 14 T. Plans today for PEG placement later on this afternoon. No acute issues overnight. Objective Vital Signs Date Time Temp Pulse Resp B/P Pulse Ox O2 Delivery O2 Flow Rate FiO2 05/03/16 08:27 98 40 05/03/16 06:00 82 05/03/16 04:00 99.9 19 138/68 Intake and Output 05/02/16 05/02/16 05/03/16 08:00 16:00 00:00 Intake Total 481 ml 977 ml 812 ml Output Total 1400 ml 1000 ml 1250 ml Balance -919 ml -23 ml -438 ml Result Diagram: 05/03/16 0455 05/03/16 0455 Imaging Last Impressions Chest X-Ray 04/27/16 0000 Signed Impressions: Service Date/Time: Wednesday, April 27, 2016 13:37 - CONCLUSION: 1. Under aerated. 2. Support apparatus in good position. Bear Barton MD FACR Abdomen X-Ray 03/31/16 0000 Signed Impressions: Service Date/Time: Thursday, March 31, 2016 09:58 - CONCLUSION: Benign abdomen. Rodrigo Martinez MD Chest CT 03/28/16 0836 Signed Impressions: Service Date/Time: Monday, March 28, 2016 09:57 - CONCLUSION: Development areas of air bronchograms and consolidation more prominent in the right and left posterior basilar segments of the lower lobes. ET tube above the chanelle. Bernard Hartman MD CT Angiography 03/24/16 1121 Signed Impressions: Service Date/Time: Thursday, March 24, 2016 12:47 - CONCLUSION: 1. There is respiratory motion artifact but no PE is identified through most of the segmental level pulmonary arteries. 2. Mildly enlarged main pulmonary artery may indicate pulmonary arterial hypertension. 3. 11 mm left lower lobe noncalcified pulmonary nodule. Suggest correlation with any prior imaging studies that could confirm longer-term stability. If none are available consider short-term followup noncontrast chest CT in approximately 3 months. Ubaldo Rodas MD Objective Remarks GENERAL: 50-year-old male, sedated tracheostomy SKIN: Seborrheic dermatitis of the face HEAD: Atraumatic. Normocephalic. EYES: Pupils equal round and slightly reactive about 3 millimeters bilaterally. ENT: NG tube in place. Tracheostomy in situ no drainage or erythema around the site NECK: Very large neck. Trachea midline. CARDIOVASCULAR: Distant heart sounds. RRR. S1, S2. No S4. Without murmur RESPIRATORY: Orally intubated on mechanical ventilation, Breath sounds equal bilaterally. Diminished breath sounds due to body habitus. GASTROINTESTINAL: Abdomen soft, obese, nontender. Severe central obesity MUSCULOSKELETAL: Extremities with trace to 1+ nonpitting bilateral lower extremity edema. Left antecubital PICC line is clean dry and intact NEUROLOGICAL: Alert ,RASS -1, Follows commands, cooperative. Urinary Catheter: Yes Becker insert reason: Measure Accurate Output Vascular Central Line Catheter: Yes Date of Insertion: Apr 02, 2016 Line: PICC Side: Left Location: Antecubital A/P Assessment and Plan Neuro/Psych: Likely SERENITY Toxic metabolic encephalopathy Precedex infusion Continue Hammond 5/325mg every 6hrs scheduled, fentanyl patch 25mcgs, and Shauna 5mg PRN, fentanyl patch 25 mcgs q 3 days Precedex infusion 0.5mg/kg/hr Goal of RASS -1 Acetaminophen for fever Pulm: Acute hypoxemic respiratory failure JACOB [facility] History of staph aureus pneumonia/HCAP ARDS On PRVC/AC RR 15, TV 650, IT:1.65, PEEP:10, FIO2 50% Continue with vent support keep sat >92%. Bronchodilators every 6 hours and every 2 hours as needed ICU ventilator bundle Flolan off since 04/21 . Solumedrol decreased to 30mg daily 3/ POD #3 S/P Tracheostomy CPAP trials 15/8 FiO2.45% O2 sat 93% CV: Monitor HR and BP keep MAP>65mmHg 2-D echo 03/26 EF 60%. No regional wall motion abnormality. Mild MR/TR. /FEN: Hypokalemia Hypernatremia-resolved Hypophosphatemia Monitor renal function, I/O's, electrolytes replacement per protocol. Currently holding diuretics. GI: Constipation-resolved Moderate protein calorie malnutrition On Glucerna 1.5@45ml/hr with 1 scoop whey protein 3 times a day, Protonix 40mg daily On Reglan 10mg Q8, Senna and Colace twice a day.. Continue MiraLAX twice a day and lactulose 4 times a day. PEG tube placement-scheduled for 05/03 ID: Staph aureus pneumonia Possible staph bacteremia Pertinent culture 04/27 - pansensitive staph aureus 04/27 blood cultures 2 negative 04/25 - urine -no growth 04/19 - blood cultures 2 out of 4 - staph aureus 04/19 - sputum - staph aureus 04/08 - sputum - staph aureus 04/03 - sputum - staph aureus 03/30 - sputum- -staph aureus 03/27 - sputum - staph aureus 03/26 - blood - staph hominis On vancomycin 2 g IV every 12 are since 04/19 - 04/29 Azactam 04/27 through 04/29 Currently on clindamycin day #4 ID on board-Dr. Painter Heme: Leukocytosis Monitor CBC/coags Monitor WBC 11.7 Endo: Diabetes mellitus SSI for glycemic control (high scale) 30 units sliding scale insulin scale insulin in the past 24 hours, Levemir insulin 70 U Q12 MSK Morbid obesity Weight loss encouraged DVT, GI prophylaxis -Bilateral lower extremity SCDs. IV Protonix 40 mg daily. Lovenox 40 mg sq BID LINES: -Left upper extremity PICC line placed 04/15 Critical Care: Level 3 Dispo: Discussed with OPEN SHANK COVERER at bedside. Physician Lourdes Josue MD May 03, 2016 10:11
[2016-05-03] MEDS: FREE WATER G-TUBE SCH ×4 (11:36→23:31)
[2016-05-03] MEDS: ACETAMINOPHEN 650 MG/20.3 ML UDC PO PRN (13:22)
--- NOTE | 2016-05-03 14:47 | PD.PROCEDR ---
GI Procedure REFERRING PHYSICIAN Dr. ureña PROCEDURE PERFORMED EGD with PEG placement INDICATION FOR PROCEDURE Respiratory failure dysphagia PROCEDURE: The procedure, risks and benefits were discussed with Mr. Leger and informed consent was obtained. Anesthesia sedated him with Diprivan. He was placed in the left lateral decubitus position. EGD: The Pentax videoscope was introduced through the oropharynx and advanced to the second portion of the duodenum under direct visualization. Retroflexion was performed in the stomach. FINDINGS: The esophagus this was normal The stomach this was normal The duodenum this was normal Following the evaluation of the stomach and the duodenum the stomach was insufflated with air and the area of PEG placement was identified through indentation and transillumination the area was prepped and draped in usual fashion 5 cc of lidocaine were injected locally a small incision was made then an Angiocath was passed into the stomach through which a guidewire was passed this was retrieved with the scope into that a PEG tube was attached and pulled into place and thereafter secured in usual fashion The patient tolerated procedure well and there are no immediate complications ESTIMATED BLOOD LOSS: None SPECIMENS REMOVED: None COMPLICATIONS: None IMPRESSION: Normal EGD Successful PEG placement PLAN: 1. May use PEG tube for medications today 2. May start feeding tomorrow 3. May obtain nutritional consult for tube feeding 4. Flush tube with 50 cc of water every 4-6 hours 5. Always flush tube after feedings 6. Apply abdominal binder as necessary 7. Clamp G-tube after use and flush. Denis Faith MD May 03, 2016 14:47
--- NOTE | 2016-05-03 14:48 | HHI.IDPN ---
Subjective Subjective Remarks Notes reviewed. Temps ok Just had PEG placement S/P trach 04/30 Doing CPAP trials is a 50 years old obese male with past medical history significant for undiagnosed sleep apnea, super morbid obesity, type 2 diabetes was brought to the emergency department on 03/24/16. ID following for MSSA pneumonia. Antibiotics Clindamycin Lines PICC 04/15 Past Medical History Reviewed Allergies: Coded Allergies: Penicillin (Verified Allergy, Severe, Swelling, 03/24/16) Tetanus Toxoid (Verified Allergy, Unknown, Swelling, 03/24/16) Objective . Vital Signs Date Time Temp Pulse Resp B/P Pulse Ox O2 Delivery O2 Flow Rate FiO2 05/03/16 14:00 78 05/03/16 12:27 96 40 05/03/16 12:00 101.0 74 15 139/68 96 05/03/16 12:00 74 05/03/16 12:00 40 05/03/16 10:00 77 05/03/16 09:05 18 05/03/16 08:27 98 40 05/03/16 08:00 99.2 81 17 110/68 98 05/03/16 08:00 81 05/03/16 08:00 40 05/03/16 06:00 82 05/03/16 04:23 98 40 05/03/16 04:00 45 05/03/16 04:00 72 05/03/16 04:00 99.9 72 19 138/68 98 05/03/16 02:00 80 05/03/16 00:00 99.7 83 15 138/68 96 05/03/16 00:00 83 05/03/16 00:00 45 05/02/16 23:30 95 45 05/02/16 22:00 62 05/02/16 20:00 99.8 90 31 171/110 99 05/02/16 20:00 45 05/02/16 20:00 90 05/02/16 19:58 99 45 05/02/16 18:00 96 05/02/16 16:00 96 05/02/16 16:00 98.5 88 18 148/86 95 05/02/16 16:00 45 05/02/16 05/02/16 05/03/16 15:00 23:00 07:00 Intake Total 977 ml 1174 ml Output Total 1000 ml 1600 ml Balance -23 ml -426 ml IV Total 777 ml 1124 ml Other 200 ml 50 ml Output Urine Total 1000 ml 1600 ml . Laboratory Tests Test 05/02/16 05/03/16 06:40 04:55 White Blood Count 10.4 TH/MM3 11.7 TH/MM3 Red Blood Count 4.13 MIL/MM3 4.31 MIL/MM3 Hemoglobin 11.2 GM/DL 11.8 GM/DL Hematocrit 34.5 % 35.5 % Mean Corpuscular Volume 83.5 FL 82.5 FL Mean Corpuscular Hemoglobin 27.1 PG 27.5 PG Mean Corpuscular Hemoglobin 32.4 % 33.3 % Concent Red Cell Distribution Width 16.3 % 16.0 % Platelet Count 192 TH/MM3 192 TH/MM3 Mean Platelet Volume 8.6 FL 8.7 FL Neutrophils (%) (Auto) 82.0 % Lymphocytes (%) (Auto) 12.3 % Monocytes (%) (Auto) 4.7 % Eosinophils (%) (Auto) 0.6 % Basophils (%) (Auto) 0.4 % Neutrophils # (Auto) 9.6 TH/MM3 Lymphocytes # (Auto) 1.4 TH/MM3 Monocytes # (Auto) 0.5 TH/MM3 Eosinophils # (Auto) 0.1 TH/MM3 Basophils # (Auto) 0.0 TH/MM3 CBC Comment AUTO DIFF Differential Total Cells 100 Counted Neutrophils % (Manual) 82 % Band Neutrophils % 9 % Lymphocytes % 6 % Basophils % 1 % Neutrophils # (Manual) 10.9 TH/MM3 Myelocytes 2 % Differential Comment FINAL DIFF MANUAL Platelet Estimate NORMAL Platelet Morphology Comment NORMAL Laboratory Tests Test 05/02/16 05/02/16 05/03/16 06:40 21:00 04:55 Sodium Level 140 MEQ/L 142 MEQ/L Potassium Level 3.2 MEQ/L 3.4 MEQ/L 3.2 MEQ/L Chloride Level 106 MEQ/L 107 MEQ/L Carbon Dioxide Level 24.7 MEQ/L 23.7 MEQ/L Anion Gap 9 MEQ/L 11 MEQ/L Blood Urea Nitrogen 11 MG/DL 9 MG/DL Creatinine 0.48 MG/DL 0.43 MG/DL Estimat Glomerular Filtration 184 ML/MIN 209 ML/MIN Rate Random Glucose 139 MG/DL 149 MG/DL Calcium Level 8.1 MG/DL 8.4 MG/DL Phosphorus Level 3.2 MG/DL 2.2 MG/DL Magnesium Level 1.9 MG/DL 1.8 MG/DL Imaging Chest X-Ray 04/27/16 0000 Signed Impressions: Service Date/Time: Wednesday, April 27, 2016 13:37 - CONCLUSION: 1. Under aerated. 2. Support apparatus in good position. Bear Barton MD FACR Chest X-Ray 04/25/16 0000 Signed Impressions: Service Date/Time: Monday, April 25, 2016 13:33 - CONCLUSION: Stable chest Bernard Hartman MD Chest X-Ray 04/23/16 0600 Signed Impressions: Service Date/Time: Saturday, April 23, 2016 03:46 - CONCLUSION: Bilateral areas of consolidation or atelectasis being worse on the left. Ubaldo Coombs MD Abdomen X-Ray 03/31/16 0000 Signed Impressions: Service Date/Time: Thursday, March 31, 2016 09:58 - CONCLUSION: Benign abdomen. Rodrigo Martinez MD Chest CT 03/28/16 0836 Signed Impressions: Service Date/Time: Monday, March 28, 2016 09:57 - CONCLUSION: Development areas of air bronchograms and consolidation more prominent in the right and left posterior basilar segments of the lower lobes. ET tube above the chanelle. Bernard Hartman MD CT Angiography 03/24/16 1121 Signed Impressions: Service Date/Time: Thursday, March 24, 2016 12:47 - CONCLUSION: 1. There is respiratory motion artifact but no PE is identified through most of the segmental level pulmonary arteries. 2. Mildly enlarged main pulmonary artery may indicate pulmonary arterial hypertension. 3. 11 mm left lower lobe noncalcified pulmonary nodule. Suggest correlation with any prior imaging studies that could confirm longer-term stability. If none are available consider short-term followup noncontrast chest CT in approximately 3 months. Ubaldo Rodas MD Chest X-Ray 04/19/16 0000 Signed Impressions: Service Date/Time: April 03:20 - CONCLUSION: 1. Cardiomegaly and findings of congestive heart failure. There has been no significant change when compared to the prior exam. Kyaw Rojo MD Chest X-Ray 04/18/16 0000 Signed Impressions: Service Date/Time: Monday, April 18, 2016 09:59 - CONCLUSION: 1. Support equipment in good position. 2. Small left basilar effusion and consolidative changes in the left lower lobe and perihilar region on the right. Dc Barton MD Chest X-Ray 04/16/16 0600 Signed Impressions: Service Date/Time: Saturday, April 16, 2016 03:58 - CONCLUSION: 1. Cardiomegaly. Bilateral lower lobe atelectasis versus pneumonia. There has been no significant change when compared to the prior exam. Kyaw Rojo MD Abdomen X-Ray 03/31/16 0000 Signed Impressions: Service Date/Time: Thursday, March 31, 2016 09:58 - CONCLUSION: Benign abdomen. Rodrigo Martinez MD Chest CT 03/28/16 0836 Signed Impressions: Service Date/Time: Monday, March 28, 2016 09:57 - CONCLUSION: Development areas of air bronchograms and consolidation more prominent in the right and left posterior basilar segments of the lower lobes. ET tube above the chanelle. Bernard Hartman MD CT Angiography 03/24/16 1121 Signed Impressions: Service Date/Time: Thursday, March 24, 2016 12:47 - CONCLUSION: 1. There is respiratory motion artifact but no PE is identified through most of the segmental level pulmonary arteries. 2. Mildly enlarged main pulmonary artery may indicate pulmonary arterial hypertension. 3. 11 mm left lower lobe noncalcified pulmonary nodule. Suggest correlation with any prior imaging studies that could confirm longer-term stability. If none are available consider short-term followup noncontrast chest CT in approximately 3 months. Ubaldo Rodas MD Chest X-Ray 04/12/16 0600 Signed Impressions: Service Date/Time: April 04:14 - CONCLUSION: Worsening appearance of the chest. Henrry Andrea MD Chest X-Ray 04/11/16 0000 Signed Impressions: Service Date/Time: Monday, April 11, 2016 04:09 - CONCLUSION: No significant change has occurred. Henrry Andrea MD Chest X-Ray 04/09/16 0900 Signed Impressions: Service Date/Time: Saturday, April 09, 2016 09:12 - CONCLUSION: 1. Diffuse alveolar consolidation of the left lung and right upper lung field consistent with pneumonia and/or asymmetric pulmonary edema. Clinical correlation is recommended. 2. Endotracheal tube has its tip 1 cm above the chanelle. This could be pulled back 2 cm for more optimal position. Farhat Montes MD Chest X-Ray 04/05/16599 Signed Impressions: Service Date/Time: April 03:25 - CONCLUSION: 1. Improved basilar consolidation. Residual versus developing right midlung consolidation. 2. Small bilateral pleural effusions are suspected. 3. No change cardiomegaly or lines/tubes. Ubaldo Ortiz MD Chest X-Ray 04/04/16599 Signed Impressions: Service Date/Time: Monday, April 04, 2016 04:44 - CONCLUSION: Worsening bilateral airspace opacities, especially left perihilar. Ubaldo Ortiz MD Chest X-Ray 04/04/16599 Signed Impressions: Service Date/Time: Monday, April 04, 2016 04:44 - CONCLUSION: Worsening bilateral airspace opacities, especially left perihilar. Ubaldo Ortiz MD Chest X-Ray 04/03/16599 Signed Impressions: Service Date/Time: Sunday, April 03, 2016 00:16 - CONCLUSION: Potential developing pneumonia in the right upper lobe. Bibasilar atelectasis modestly worse in the interim. Ubaldo Ortiz MD Chest X-Ray 04/03/16599 Signed Impressions: Service Date/Time: Sunday, April 03, 2016 00:16 - CONCLUSION: Potential developing pneumonia in the right upper lobe. Bibasilar atelectasis modestly worse in the interim. Ubaldo Ortiz MD Chest X-Ray 04/02/1625 Signed Impressions: Service Date/Time: Saturday, April 02, 2016 09:22 - CONCLUSION: Place a right jugular catheter terminates superior vena cava with no pneumothorax. Bernard Hartman MD Physical Exam GENERAL: on the vent, NAD. Awake and interacting SKIN: Warm and dry. No generalized rash HEENT: No icterus, moist mucosa NECK: Trach in place, site ok CHEST: Coarse BS bilaterally, decreased at bases CARDIAC: regular, no murmur ABDOMEN: soft, obese, (+) BS : Becker in place, urine looks clear MUSCULOSKELETAL: Extremities without clubbing, cyanosis. No edema NEUROLOGICAL: Awake and interacting PSYCH: Awake, cooperative LINE: No evidence of infection Assessment & Plan Remarks IMPRESSION Leukocytosis, resolved - has been on adequate Abx for pathogens isolated Pneumonia, C/S MSSA - Last CXR stable - S/P RX Sputum with persistent MSSA JACOB Respiratory failure Morbid obesity Allergy to PCN, swelling Fevers, recurrent - has (+) BC, Staph epi one out 2 BC, has new line PICC - ?new VAP, has MSSA again RECOMMENDATION Monitor temps Continue IV Clindamycin, plan 7 days - to finish 3/5 Monitor progress Weaning per [facility] Elisha Painter MD May 03, 2016 14:48
[2016-05-03] MEDS ORDERED: PROPOFOL 200 MG/20 ML AMP IV ONE (15:06)
--- NOTE | 2016-05-03 17:08 | HHI.PR ---
Subjective Remarks ON THE VENT SEDATED FIO2 AT 50% Objective Vital Signs Date Time Temp Pulse Resp B/P Pulse Ox O2 Delivery O2 Flow Rate FiO2 05/03/16 16:31 15 05/03/16 16:31 15 05/03/16 16:03 96 40 05/03/16 16:02 100.5 05/03/16 16:00 40 05/03/16 16:00 68 05/03/16 14:00 78 05/03/16 12:27 96 40 05/03/16 12:00 101.0 74 15 139/68 96 05/03/16 12:00 74 05/03/16 12:00 40 05/03/16 10:00 77 05/03/16 08:27 98 40 05/03/16 08:00 99.2 81 17 110/68 98 05/03/16 08:00 81 05/03/16 08:00 40 05/03/16 06:00 82 05/03/16 04:23 98 40 05/03/16 04:00 45 05/03/16 04:00 72 05/03/16 04:00 99.9 72 19 138/68 98 05/03/16 02:00 80 05/03/16 00:00 99.7 83 15 138/68 96 05/03/16 00:00 83 05/03/16 00:00 45 05/02/16 23:30 95 45 05/02/16 22:00 62 05/02/16 20:00 99.8 90 31 171/110 99 05/02/16 20:00 45 05/02/16 20:00 90 05/02/16 19:58 99 45 05/02/16 18:00 96 I/O 05/02/16 05/02/16 05/02/16 05/03/16 05/03/16 05/03/16 07:00 15:00 23:00 07:00 15:00 23:00 Intake Total 481 ml 977 ml 1174 ml 1092 ml Output Total 1400 ml 1000 ml 1600 ml 775 ml Balance -919 ml -23 ml -426 ml 317 ml IV Total 481 ml 777 ml 1124 ml 912 ml Tube Feeding 0 ml Tube Irrigant 180 ml Other 200 ml 50 ml Output Urine Total 1400 ml 1000 ml 1600 ml 775 ml # Bowel Movements 0 0 Result Diagram: 05/03/16 0455 05/03/16 0455 Objective Remarks GENERAL: SKIN: Warm and dry. HEAD: Atraumatic. Normocephalic. EYES: Pupils equal and round. No scleral icterus. No injection or drainage. ENT: No nasal bleeding or discharge. Mucous membranes pink and moist. NECK: Trachea midline. No JVD. CARDIOVASCULAR: Regular rate and rhythm. RESPIRATORY: No accessory muscle use. Clear to auscultation. Breath sounds equal bilaterally. GASTROINTESTINAL: Abdomen soft, non-tender, nondistended. Hepatic and splenic margins not palpable. MUSCULOSKELETAL: Extremities without clubbing, cyanosis, or edema. No obvious deformities. NEUROLOGICAL: Awake and alert. No obvious cranial nerve deficits. Motor grossly within normal limits. Five out of 5 muscle strength in the arms and legs. Normal speech. PSYCHIATRIC: Appropriate mood and affect; insight and judgment normal. Assessment and Plan Assessment and Plan RESPIRATORY FAILURE SEPSIS ARDS JACOB/CSA PLAN VENT SUPPORT FIO2 0.5 PULM TOILET WEAN TOLERATED. CHECK ABG , CXRAY FOR TRACHEOSTOMY TODAY Discussed Condition With respiratory failure ARDS S/P TRACHEOSTOMY MORBID OBESITY PLAN VENT SUPPORT ANTIBX. WEAN TOLERTED Orlando Perry MD May 03, 2016 17:08
[2016-05-03] MEDS: PANTOPRAZOLE SODIUM 40 MG VIAL IV PUSH SCH (17:23)
[2016-05-03 19:20] LABS: POTASSIUM 3.2 MEQ/L (3.5-5.1)
[2016-05-03] MEDS: POTASSIUM CHLOR 40 MEQ PREMIX 100 ML IV PRN ×2 (20:41→23:31)
[2016-05-04] VITALS (18 sets, daily range): BP systolic 99–160; BP diastolic 57–81; PULSE 63–101; RESP 15–32; TEMP 99.1–100.1; O2SAT 93–99
[2016-05-04] MEDS: ARTIFICIAL TEARS OPTH SOLN 15 ML BTL EACH EYE SCH ×6 (04:27→21:30)
[2016-05-04] MEDS: ACETAMINOPHEN/HYDROcodone 325 MG/5 MG TAB PO SCH ×4 (04:27→20:28)
[2016-05-04] MEDS: CLINDAMYCIN INJ 600 MG in SODIUM CHLORIDE 0.9% INJ 100 ML IV SCH ×3 (04:28→20:28)
[2016-05-04 05:05] LABS: HEMATOCRIT 36.1 % (39.0-51.0); MEAN CELL VOLUME 82.9 FL (80.0-100.0); MEAN CORPUSCULAR HEMOGLOBIN 27.7 PG (27.0-34.0); MEAN CORPUSCULAR HGB CONC 33.4 % (32.0-36.0); PLATELET COUNT 197 TH/MM3 (150-450); RED BLOOD COUNT 4.35 MIL/MM3 (4.50-5.90); RED CELL DISTRIBUTION WIDTH 16.5 % (11.6-17.2); REVIEW FLAG FINAL
[2016-05-04 05:20] LABS: BICARBONATE 23.1 MEQ/L (21.0-32.0); MAGNESIUM 1.9 MG/DL (1.5-2.5); POTASSIUM 3.6 MEQ/L (3.5-5.1)
[2016-05-04] MEDS: FREE WATER G-TUBE SCH ×4 (06:00→23:57)
[2016-05-04] MEDS: INSULIN NovoLIN REGULAR SUPPLEMENTAL SCALE SQ SCH ×4 (06:00→23:57)
[2016-05-04] MEDS: METOCLOPRAMIDE HCL 10 MG/2 ML VIAL IV PUSH SCH ×3 (06:09→21:30)
[2016-05-04] MEDS: DEXMEDETOMIDINE INJ 1,000 MCG in SODIUM CHLOR 0.9% 250 ML INJ 250 ML IV SCH ×2 (06:09→09:53)
[2016-05-04] MEDS: RESP: ALBUTEROL 2.5 MG/IPRATROPIUM 0.5 MG NEB (PRN) NEB (07:39)
[2016-05-04] MEDS: BETAMETHASONE/CLOTRIMAZOLE CREAM 15 GM TOPICAL SCH ×2 (07:54→20:30)
[2016-05-04] MEDS: ARTIFICIAL TEARS OPTH OINT 3.5 APPLIC/3.5 GM TUBO EACH EYE SCH ×2 (07:54→20:30)
[2016-05-04] MEDS: POLYETHYLENE GLYCOL 17 GM PKG PO SCH ×2 (07:54→20:28)
[2016-05-04] MEDS: NYSTATIN 100,000 U/GM PWD 15 GM BTL TOPICAL SCH ×2 (07:54→20:30)
[2016-05-04] MEDS: SENNOSIDES SYRUP 8.8 MG/5 ML CUP PO/TUBE SCH ×2 (07:54→20:28)
[2016-05-04] MEDS: DOCUSATE SODIUM 100 MG/10 ML UDC PO SCH ×2 (07:55→20:28)
[2016-05-04] MEDS: methylPREDNISolone SOD SUCC 40 MG/1 ML VIAL IV PUSH SCH (07:55)
[2016-05-04] MEDS: LACTOBACILLUS ACIDOPHILUS TAB PO SCH ×3 (07:55→16:57)
[2016-05-04] MEDS: BENEPROTEIN POWDER 1 PACK G-TUBE SCH ×3 (07:56→16:57)
[2016-05-04] MEDS: CHLORHEXIDINE 0.12% (ORAL KIT) 15 ML CUP MT SCH ×2 (07:57→20:30)
[2016-05-04] MEDS: SODIUM CHLORIDE 0.9% FLUSH 5 ML FLUSH IVF SCH (07:58)
[2016-05-04] MEDS: LORazepam 2 MG/ML VIAL IVP PRN ×4 (08:26→23:57)
[2016-05-04] MEDS: INSULIN DETEMIR 100 UNITS/ML VIAL SQ SCH ×2 (09:00→20:29)
[2016-05-04] MEDS: QUEtiapine FUMARATE 25 MG TAB PO SCH ×2 (10:21→20:28)
--- NOTE | 2016-05-04 10:30 | HHI.CCPN ---
Subjective Remarks/Hospital Course Patient is a 50 years old obese male with past medical history significant for undiagnosed sleep apnea, super morbid obesity, type 2 diabetes was brought to the emergency department on 03/24/16 after feeling light headed and dizzy. On presentation here was found to be hypoxemic and ABG showed severe hypoxemia and hypercarbia. For a recent driving physical he was diagnosed with low oxygen saturations. Patient's oxygen saturation the ED was in the low 80s, which was confirmed on ABG with a oxygen saturation of 78% and PO2 of 46. CTA negative for PE. Patient was initiated on BiPAP therapy with consult to pulmonary Dr. Crane. His oxygenation improved but he continued to be hypercapnic. Today a.m. on nasal cannula his pH was 7.26 and PCO2 was increased at 99, patient was somnolent was placed back on BiPAP and repeat ABG at noon showed pH 7.26 PCO2 98 and pO2 70. This was on 16 BiPAP with FiO2 50%. Critical care was consulted. On my evaluation patient is somnolent but wakes up easily. I reduced the PEEP on BiPAP from 12-7 to facilitate better ventilation. A repeat ANG showed only minimal improvement, so decision made to intubate patient. Glidescope with #4 blade was used. Only propofol was used for induction. Initially I had a Grade 1-2 view, but I was unable to pass tube through the vocal cord to trachea in two attempts. Tube slipped out of Laryngeal opening both times. Dr Garrett intubated patient after NM paralysis with succinylcholine. Post intubation ABG showed improvement in hypercapnia and oxygenation. 03/27/16: Patient remains intubated heavily sedated with propofol and fentanyl. Remained severely hypoxemic on 100% FiO2, PEEP12, chest x-ray shows bibasilar infiltrates. Flagyl added. We'll give 1 dose of vancomycin-Adjust antibiotics according to cultures. Patient super morbid obesity may prevent Prone therapy 03/28: Remains hypoxic but ABG shows marginal improvement in oxygenation. WBC increasing 20.1 today. Start vancomycin scheduled. 03/29: Oxygenation is slightly improved. FiO2 reduced to 50% today. Chest x- ray remains unchanged. On sedation hold patient does wake up and follow commands. WBC count remains at 20 03/30 No acute events overnight. Sedated with Diprivan and Fentanyl. Had T: 100.1 at 4 am. WBC trending down 15.9 today from 20. 03/31 Patient remains sedated with Diprivan, Fentanyl and intubated. Tmax 100.1. Patient required increase O2 overnight now on ACV with PEEP: 12 and FIO2 70%. 04/01: Tmax 99.7. No bowel movement since admission. Patient has bowel sounds. Arousable on the ventilator. We'll attempt prone the patient paralyzed to increase oxygenation status. 04/02: MAXIMUM TEMPERATURE 100.9. Currently 97.7. 5 10 cc stools overnight. Placed on Roto prone yesterday. Saturations currently 94% on Flolan. Diuresed overnight. Creatinine still within normal limits. 04/03: Tmax 101. Currently 99.1. Positive BM. Did not tolerate not being unprone this AM. Saturations much improved prone. Tolerating tube feeding. 04/04: Tmax 100.8. Currently 98.8. +2 L past 24 hours. Attempt to on prone today. Positive BM. C. difficile negative. Remains paralyzed. 04/05: Remains sedated, orally intubated on neuromuscular blockade on mechanical ventilation. Remains on Rota prone bed. On insulin drip. 04/06: Remains sedated, orally intubated on neuromuscular blockade, on mechanical ventilation. Remains on Rota prone bed. Insulin drip continues. 04/07 Patient remains on Rotoprone bed sedated with Diprivan, Versed, Fentanyl in addition patient is on Nimbex. Afebrile. On Insulin drip 5u/hr. 04/08 Patient remains sedated and intubated and on Nimbex. Off insulin drip. On PRVC/AC with RR 15, TV 550, IT: 1.65, PEEP: 15 and FIO2 100%. T: 100.2 at 4 am. 04/09 Patient is sedated, intubated and remains on neuromuscular blockade. Vent setting unchanged. afebrile. 04/10 Patient remains sedated and intubated and on Nimbex. On PRVC/AC, RR 15, TV 500, PEEP: 15, FIO2 90%, IT:1.65, on Flolan drip. Remains on Rotoprone bed. 04/11 minimal improvement in oxygenation, FiO2 now at 75 - continue to improve oxygenation, worsening CXR 04/13/10 continue to improve oxygenation DC'd prone position last night 04/14- improving oxygenation, Nimbex discontinued as well as prone position 04/16 Patient is sedated with Versed and Fentanyl and intubated. Off rotoprone bed. On PRVC/AC RR 15, TV 550, IT 1.65, PEEP:15, FIO2 50%. 04/17 Patient remains sedated with Versed and Fentanyl. Afebrile, tolerating tube feeds 04/18 No acute events overnight Sedated and intubated. Afebrile. On PRVC/AC RR 15 , TV 550, IT 1.65, PEEP:15, FIO2 60% 04/19: Spiking fever up to 101, pancultured and 1 dose of vancomycin given by ID. On weaning doses of Flolan. FiO2 down to 50% I have reduced PEEP to 14. Remains critically ill 04/20: No fever. Sputum cx with Staph -S pending. Fio2 50% PEEP remains at 14. TV increased to 650 to improve lung recruitment. On weaning dose of Flolan-DC after current bag 04/21:Afebrile. Hyponatremia resolving, the patient will be placed on free water flushes. 04/22:The patient had an episode of acute desaturation requiring FiO2 increased to 90%. Stat chest x-ray stat ABG aggressive pulmonary toileting and suctioning , resolution of symptoms FiO2 now 55%. ABGs within normal limits. 04/23: Tmax 99.5. Currently afebrile. O2 sat 50%. PEEP down to 13. One small bowel movement overnight. 04/24: Currently afebrile. O2 sat 45%. PEEP to 12. One BM. Tolerating tube feeds. 04/25: Afebrile. PEEP down to 11. Positive BM. Tolerating tube feeds. Awake on the ventilator with eyes open. 04/26: Afebrile. PEEP down to 10. Time to feeding. Awake and alert eyes open. 04/27: Suspected fever overnight. One bowel movement documented. Will decreased PEEP to 9. Awake and alert and follows commands. 04/28: Tmax 99.3. Currently afebrile. FiO2 increased to 70%. PEEP to 10. Awake and does follow commands. Positive BM 4 yesterday. Subjective 04/29: FiO2 down to 55%. Peak systolic 10. Awake and does follow commands. Positive BM 1 yesterday. Tolerating tube feeding. 04/30: No acute issues overnight . The patient continues to be sedated with plans for tracheostomy in the OR today. The patient follows commands when on sedation vacation. 05/01: Postop day 1 post tracheostomy tube placement, no issues overnight. Plan for CPAP trials today. 05/02: Afebrile. The patient continues on CPAP trial 15/5 , FiO2 .45%. The patient alert and responsive this a.m., continues on Precedex and fentanyl infusion. By mouth narcotics, and fentanyl patch instituted to transition all fentanyl infusion. PEG tube placement pending. 05/03: The patient's fentanyl infusion was discontinued last evening. Multimodal analgesia initiated. Patient continues on Precedex infusion, GCS 14 T. Plans today for PEG placement later on this afternoon. No acute issues overnight. 05/04 Tmax 101.0. The patient's PICC line was removed, peripheral IVs initiated. Blood, urine and sputum cultures obtained. Methylprednisolone continues to be weaned currently at 20 mg daily. Plan for weaning of Precedex infusion off today. Seroquel 25 mg twice a day added to medication regimen. The patient continues on CPAP trials. Objective Vital Signs Date Time Temp Pulse Resp B/P Pulse Ox O2 Delivery O2 Flow Rate FiO2 05/04/16 08:55 32 05/04/16 08:15 40 05/04/16 08:12 96 05/04/16 08:00 99.7 72 127/70 Intake and Output 05/03/16 05/03/16 05/04/16 08:00 16:00 00:00 Intake Total 362 ml 1092 ml 685 ml Output Total 350 ml 775 ml 375 ml Balance 12 ml 317 ml 310 ml Result Diagram: 05/04/16 0408 05/04/16 0408 Imaging Last Impressions Chest X-Ray 04/27/16 0000 Signed Impressions: Service Date/Time: Wednesday, April 27, 2016 13:37 - CONCLUSION: 1. Under aerated. 2. Support apparatus in good position. Bear Barton MD FACR Abdomen X-Ray 03/31/16 0000 Signed Impressions: Service Date/Time: Thursday, March 31, 2016 09:58 - CONCLUSION: Benign abdomen. Rodrigo Martinez MD Chest CT 03/28/16 0836 Signed Impressions: Service Date/Time: Monday, March 28, 2016 09:57 - CONCLUSION: Development areas of air bronchograms and consolidation more prominent in the right and left posterior basilar segments of the lower lobes. ET tube above the chanelle. Bernard Hartman MD CT Angiography 03/24/16 1121 Signed Impressions: Service Date/Time: Thursday, March 24, 2016 12:47 - CONCLUSION: 1. There is respiratory motion artifact but no PE is identified through most of the segmental level pulmonary arteries. 2. Mildly enlarged main pulmonary artery may indicate pulmonary arterial hypertension. 3. 11 mm left lower lobe noncalcified pulmonary nodule. Suggest correlation with any prior imaging studies that could confirm longer-term stability. If none are available consider short-term followup noncontrast chest CT in approximately 3 months. Ubaldo Rodas MD Objective Remarks GENERAL: 50-year-old male, sedated tracheostomy SKIN: Seborrheic dermatitis of the face HEAD: Atraumatic. Normocephalic. EYES: Pupils equal round and slightly reactive about 3 millimeters bilaterally. ENT: NG tube in place. Tracheostomy in situ no drainage or erythema around the site NECK: Very large neck. Trachea midline. CARDIOVASCULAR: Distant heart sounds. RRR. S1, S2. No S4. Without murmur RESPIRATORY: Orally intubated on mechanical ventilation, Breath sounds equal bilaterally. Diminished breath sounds due to body habitus. GASTROINTESTINAL: Abdomen soft, obese, nontender. Severe central obesity MUSCULOSKELETAL: Extremities with trace to 1+ nonpitting bilateral lower extremity edema. Left antecubital PICC line is clean dry and intact NEUROLOGICAL: Alert ,RASS -1, Follows commands, cooperative. Urinary Catheter: Yes Assessment to: Continue Date of Insertion: May 03, 2016 Date of Insertion: Apr 02, 2016 Line: PICC Side: Left Location: Antecubital A/P Assessment and Plan Neuro/Psych: Likely SERENITY Toxic metabolic encephalopathy Precedex infusion weaning off Continue Tatum 5/325mg every 6hrs scheduled, fentanyl patch 25mcgs, and Shauna 5mg PRN, fentanyl patch 25 mcgs q 3 days Precedex infusion 0.5mg/kg/hr Serquel 25mg BID Goal of RASS -1 Acetaminophen for fever Pulm: Acute hypoxemic respiratory failure JACOB OHS History of staph aureus pneumonia/HCAP ARDS On PRVC/AC RR 15, TV 650, IT:1.65, PEEP:10, FIO2 50% Continue with vent support keep sat >92%. Bronchodilators every 6 hours and every 2 hours as needed ICU ventilator bundle Flolan off since 04/21 . Solumedrol decreased to 30mg daily 05/02 S/P Tracheostomy 05/01 Dr. Schmitz CPAP trials 16/10 FiO2.45% O2 sat 93% CV: Monitor HR and BP keep MAP>65mmHg 2-D echo 03/26 EF 60%. No regional wall motion abnormality. Mild MR/TR. /FEN: Hypokalemia Hypernatremia-resolved Hypophosphatemia Monitor renal function, I/O's, electrolytes replacement per protocol. Currently holding diuretics. GI: Constipation-resolved Moderate protein calorie malnutrition On Glucerna 1.5@45ml/hr with 1 scoop whey protein 3 times a day, Protonix 40mg daily On Reglan 10mg Q8, Senna and Colace twice a day.. Continue MiraLAX twice a day and lactulose 4 times a day. PEG tube placement- 05/03 Start tubefeeds per dietary recommendations ID: Staph aureus pneumonia Possible staph bacteremia Pertinent culture 04/27 - pansensitive staph aureus 04/27 blood cultures 2 negative 04/25 - urine -no growth 04/19 - blood cultures 2 out of 4 - staph aureus 04/19 - sputum - staph aureus 04/08 - sputum - staph aureus 04/03 - sputum - staph aureus 03/30 - sputum- -staph aureus 03/27 - sputum - staph aureus 03/26 - blood - staph hominis On vancomycin 2 g IV every 12 are since 04/19 - 04/29 Azactam 04/27 through 04/29 Currently on clindamycin day #5 ID on board-Dr. Painter Heme: Leukocytosis Monitor CBC/coags Monitor WBC 11.7, unchanged ID following per Endo: Diabetes mellitus SSI for glycemic control (high scale) 30 units sliding scale insulin scale insulin in the past 24 hours, Levemir insulin 70 U Q12 MSK Morbid obesity Weight loss encouraged DVT, GI prophylaxis -Bilateral lower extremity SCDs. IV Protonix 40 mg daily. Lovenox 40 mg sq BID LINES: -Left upper extremity PICC line placed 04/15-05/04. Peripheral IVs x 2 Critical Care: Level 2 Dispo: Discussed with MARINE ENGINEERING PROFESSOR at bedside. Case management has been consulted for disposition of care. Physician Lourdes Josue MD May 04, 2016 10:30
--- NOTE | 2016-05-04 14:08 | HHI.IDPN ---
Subjective Subjective Remarks Notes reviewed. Had fevers yesterday up to 101 Temps low grade overnight, better this morning BP ok S/P PEG yesterday On CPAP Not SOB On TF 15 ml/hour S/P trach 04/30 PICC removed is a 50 years old obese male with past medical history significant for undiagnosed sleep apnea, super morbid obesity, type 2 diabetes was brought to the emergency department on 03/24/16. ID following for MSSA pneumonia. Antibiotics Clindamycin Lines PICC 04/15 - removed Past Medical History Reviewed Allergies: Coded Allergies: Penicillin (Verified Allergy, Severe, Swelling, 03/24/16) Tetanus Toxoid (Verified Allergy, Unknown, Swelling, 03/24/16) Objective . Vital Signs Date Time Temp Pulse Resp B/P Pulse Ox O2 Delivery O2 Flow Rate FiO2 05/04/16 12:00 69 05/04/16 12:00 40 05/04/16 12:00 99.3 69 32 120/74 95 05/04/16 11:14 93 40 05/04/16 10:00 78 05/04/16 08:55 32 05/04/16 08:15 40 05/04/16 08:12 40 05/04/16 08:12 96 40 05/04/16 08:00 99.7 72 32 127/70 97 05/04/16 08:00 40 05/04/16 08:00 72 05/04/16 07:34 98 40 05/04/16 06:00 66 05/04/16 04:00 100.1 63 15 136/81 96 05/04/16 04:00 63 05/04/16 04:00 40 05/04/16 02:00 64 05/04/16 00:00 99.1 67 16 160/76 98 05/04/16 00:00 67 05/04/16 00:00 40 05/03/16 23:24 98 40 05/03/16 22:00 65 05/03/16 20:00 40 05/03/16 20:00 66 05/03/16 20:00 98.8 66 16 137/72 97 05/03/16 19:51 97 40 05/03/16 18:00 65 05/03/16 16:31 15 05/03/16 16:03 96 40 05/03/16 16:02 100.5 05/03/16 16:00 40 05/03/16 16:00 68 05/03/16 05/03/16 05/04/16 15:00 23:00 07:00 Intake Total 1092 ml 685 ml 948 ml Output Total 775 ml 375 ml 575 ml Balance 317 ml 310 ml 373 ml IV Total 912 ml 505 ml 748 ml Tube Irrigant 180 ml 180 ml 200 ml Output Urine Total 775 ml 375 ml 575 ml # Bowel Movements 0 0 . Laboratory Tests Test 05/03/16 05/04/16 04:55 04:08 White Blood Count 11.7 TH/MM3 11.0 TH/MM3 Red Blood Count 4.31 MIL/MM3 4.35 MIL/MM3 Hemoglobin 11.8 GM/DL 12.0 GM/DL Hematocrit 35.5 % 36.1 % Mean Corpuscular Volume 82.5 FL 82.9 FL Mean Corpuscular Hemoglobin 27.5 PG 27.7 PG Mean Corpuscular Hemoglobin 33.3 % 33.4 % Concent Red Cell Distribution Width 16.0 % 16.5 % Platelet Count 192 TH/MM3 197 TH/MM3 Mean Platelet Volume 8.7 FL 8.9 FL Neutrophils (%) (Auto) 82.0 % Lymphocytes (%) (Auto) 12.3 % Monocytes (%) (Auto) 4.7 % Eosinophils (%) (Auto) 0.6 % Basophils (%) (Auto) 0.4 % Neutrophils # (Auto) 9.6 TH/MM3 Lymphocytes # (Auto) 1.4 TH/MM3 Monocytes # (Auto) 0.5 TH/MM3 Eosinophils # (Auto) 0.1 TH/MM3 Basophils # (Auto) 0.0 TH/MM3 CBC Comment AUTO DIFF Differential Total Cells 100 Counted Neutrophils % (Manual) 82 % Band Neutrophils % 9 % Lymphocytes % 6 % Basophils % 1 % Neutrophils # (Manual) 10.9 TH/MM3 Myelocytes 2 % Differential Comment FINAL DIFF MANUAL Platelet Estimate NORMAL Platelet Morphology Comment NORMAL Laboratory Tests Test 05/02/16 05/03/16 05/03/16 05/04/16 21:00 04:55 18:10 04:08 Potassium Level 3.4 MEQ/L 3.2 MEQ/L 3.2 MEQ/L 3.6 MEQ/L Sodium Level 142 MEQ/L 139 MEQ/L Chloride Level 107 MEQ/L 105 MEQ/L Carbon Dioxide Level 23.7 MEQ/L 23.1 MEQ/L Anion Gap 11 MEQ/L 11 MEQ/L Blood Urea Nitrogen 9 MG/DL 12 MG/DL Creatinine 0.43 MG/DL 0.33 MG/DL Estimat Glomerular Filtration 209 ML/MIN 284 ML/MIN Rate Random Glucose 149 MG/DL 95 MG/DL Calcium Level 8.4 MG/DL 8.8 MG/DL Phosphorus Level 2.2 MG/DL 3.8 MG/DL 3.6 MG/DL Magnesium Level 1.8 MG/DL 1.9 MG/DL Microbiology Date/Time Procedure Status Source Growth 05/04/16 11:55 Aerobic Blood Culture Received Blood Peripheral Pending 05/04/16 11:55 Anaerobic Blood Culture Received Blood Peripheral Pending 05/04/16 12:50 Urine Culture Received Urine Catheterized Urine Pending 05/04/16 12:55 Gram Stain Received Sputum Endotracheal Pending 05/04/16 12:55 Sputum Culture Received Sputum Endotracheal Pending 05/04/16 13:12 Aerobic Blood Culture Received Blood Peripheral Pending 05/04/16 13:12 Anaerobic Blood Culture Received Blood Peripheral Pending Imaging Chest X-Ray 04/27/16 0000 Signed Impressions: Service Date/Time: Wednesday, April 27, 2016 13:37 - CONCLUSION: 1. Under aerated. 2. Support apparatus in good position. Bear Barton MD FACR Chest X-Ray 04/25/16 0000 Signed Impressions: Service Date/Time: Monday, April 25, 2016 13:33 - CONCLUSION: Stable chest Bernard Hartman MD Chest X-Ray 04/23/16 0600 Signed Impressions: Service Date/Time: Saturday, April 23, 2016 03:46 - CONCLUSION: Bilateral areas of consolidation or atelectasis being worse on the left. Ubaldo Coombs MD Abdomen X-Ray 03/31/16 0000 Signed Impressions: Service Date/Time: Thursday, March 31, 2016 09:58 - CONCLUSION: Benign abdomen. Rodrigo Martinez MD Chest CT 03/28/16 0836 Signed Impressions: Service Date/Time: Monday, March 28, 2016 09:57 - CONCLUSION: Development areas of air bronchograms and consolidation more prominent in the right and left posterior basilar segments of the lower lobes. ET tube above the chanelle. Bernard Hartman MD CT Angiography 03/24/16 1121 Signed Impressions: Service Date/Time: Thursday, March 24, 2016 12:47 - CONCLUSION: 1. There is respiratory motion artifact but no PE is identified through most of the segmental level pulmonary arteries. 2. Mildly enlarged main pulmonary artery may indicate pulmonary arterial hypertension. 3. 11 mm left lower lobe noncalcified pulmonary nodule. Suggest correlation with any prior imaging studies that could confirm longer-term stability. If none are available consider short-term followup noncontrast chest CT in approximately 3 months. Ubaldo Rodas MD Chest X-Ray 04/19/16 0000 Signed Impressions: Service Date/Time: April 03:20 - CONCLUSION: 1. Cardiomegaly and findings of congestive heart failure. There has been no significant change when compared to the prior exam. Kyaw Rojo MD Chest X-Ray 04/18/16 0000 Signed Impressions: Service Date/Time: Monday, April 18, 2016 09:59 - CONCLUSION: 1. Support equipment in good position. 2. Small left basilar effusion and consolidative changes in the left lower lobe and perihilar region on the right. Dc Barton MD Chest X-Ray 04/16/16 0600 Signed Impressions: Service Date/Time: Saturday, April 16, 2016 03:58 - CONCLUSION: 1. Cardiomegaly. Bilateral lower lobe atelectasis versus pneumonia. There has been no significant change when compared to the prior exam. Kyaw Rojo MD Abdomen X-Ray 03/31/16 0000 Signed Impressions: Service Date/Time: Thursday, March 31, 2016 09:58 - CONCLUSION: Benign abdomen. Rodrigo Martinez MD Chest CT 03/28/16 0836 Signed Impressions: Service Date/Time: Monday, March 28, 2016 09:57 - CONCLUSION: Development areas of air bronchograms and consolidation more prominent in the right and left posterior basilar segments of the lower lobes. ET tube above the chanelle. Bernard Hartman MD CT Angiography 03/24/16 1121 Signed Impressions: Service Date/Time: Thursday, March 24, 2016 12:47 - CONCLUSION: 1. There is respiratory motion artifact but no PE is identified through most of the segmental level pulmonary arteries. 2. Mildly enlarged main pulmonary artery may indicate pulmonary arterial hypertension. 3. 11 mm left lower lobe noncalcified pulmonary nodule. Suggest correlation with any prior imaging studies that could confirm longer-term stability. If none are available consider short-term followup noncontrast chest CT in approximately 3 months. Ubaldo Rodas MD Chest X-Ray 04/12/16 06 Signed Impressions: Service Date/Time: April 04:14 - CONCLUSION: Worsening appearance of the chest. Henrry Andrea MD Chest X-Ray 04/11/16 0000 Signed Impressions: Service Date/Time: Monday, April 11, 2016 04:09 - CONCLUSION: No significant change has occurred. Henrry Andrea MD Chest X-Ray 04/09/16 09 Signed Impressions: Service Date/Time: Saturday, April 09, 2016 09:12 - CONCLUSION: 1. Diffuse alveolar consolidation of the left lung and right upper lung field consistent with pneumonia and/or asymmetric pulmonary edema. Clinical correlation is recommended. 2. Endotracheal tube has its tip 1 cm above the chanelle. This could be pulled back 2 cm for more optimal position. Farhat Montes MD Chest X-Ray 04/05/16599 Signed Impressions: Service Date/Time: April 03:25 - CONCLUSION: 1. Improved basilar consolidation. Residual versus developing right midlung consolidation. 2. Small bilateral pleural effusions are suspected. 3. No change cardiomegaly or lines/tubes. Ubaldo Ortiz MD Chest X-Ray 04/04/16599 Signed Impressions: Service Date/Time: Monday, April 04, 2016 04:44 - CONCLUSION: Worsening bilateral airspace opacities, especially left perihilar. Ubaldo Ortiz MD Chest X-Ray 04/04/16599 Signed Impressions: Service Date/Time: Monday, April 04, 2016 04:44 - CONCLUSION: Worsening bilateral airspace opacities, especially left perihilar. Ubaldo Ortiz MD Chest X-Ray 04/03/16 06 Signed Impressions: Service Date/Time: Sunday, April 03, 2016 00:16 - CONCLUSION: Potential developing pneumonia in the right upper lobe. Bibasilar atelectasis modestly worse in the interim. Ubaldo Ortiz MD Chest X-Ray 04/03/16 0600 Signed Impressions: Service Date/Time: Sunday, April 03, 2016 00:16 - CONCLUSION: Potential developing pneumonia in the right upper lobe. Bibasilar atelectasis modestly worse in the interim. Ubaldo Ortiz MD Chest X-Ray 04/02/16 0925 Signed Impressions: Service Date/Time: Saturday, April 02, 2016 09:22 - CONCLUSION: Place a right jugular catheter terminates superior vena cava with no pneumothorax. Bernard Hartman MD Physical Exam GENERAL: on the vent, NAD. Awake and interacting, comfortable on CPAP SKIN: Warm and dry. No generalized rash HEENT: No icterus, moist mucosa NECK: Trach in place, site ok CHEST: Coarse BS bilaterally, decreased at bases CARDIAC: regular, no murmur ABDOMEN: soft, obese, (+) BS, PEG site ok. Min tenderness, no guarding : Becker in place, urine looks clear MUSCULOSKELETAL: Extremities without clubbing, cyanosis. No edema NEUROLOGICAL: Awake and interacting PSYCH: Awake, cooperative LINE: PIV no evidence of infection Assessment & Plan Remarks IMPRESSION Leukocytosis, resolved - has been on adequate Abx for pathogens isolated Pneumonia, C/S MSSA - Last CXR stable - S/P RX Sputum with persistent MSSA JACOB Respiratory failure Morbid obesity Allergy to PCN, swelling Fevers, recurrent RECOMMENDATION Monitor temps Continue IV Clindamycin, plan 7 days - to finish 3/5 Monitor progress Agree with repeat C/S Patient clinically stable, and will hold off on any new Abx Tolerating CPAP trial Weaning per CCM Elisha Painter MD May 04, 2016 14:08
--- NOTE | 2016-05-04 16:50 | HHI.PR ---
Subjective Remarks ON THE VENT SEDATED FIO2 AT 50% less sedation alert, nods yes ,no Objective Vital Signs Date Time Temp Pulse Resp B/P Pulse Ox O2 Delivery O2 Flow Rate FiO2 05/04/16 16:09 98 40 05/04/16 16:00 40 05/04/16 16:00 75 05/04/16 16:00 99.3 75 31 99/62 97 05/04/16 15:43 28 05/04/16 14:00 77 05/04/16 12:00 69 05/04/16 12:00 40 05/04/16 12:00 99.3 69 32 120/74 95 05/04/16 11:14 93 40 05/04/16 10:00 78 05/04/16 08:15 40 05/04/16 08:12 40 05/04/16 08:12 96 40 05/04/16 08:00 99.7 72 32 127/70 97 05/04/16 08:00 40 05/04/16 08:00 72 05/04/16 07:34 98 40 05/04/16 06:00 66 05/04/16 04:00 100.1 63 15 136/81 96 05/04/16 04:00 63 05/04/16 04:00 40 05/04/16 02:00 64 05/04/16 00:00 99.1 67 16 160/76 98 05/04/16 00:00 67 05/04/16 00:00 40 05/03/16 23:24 98 40 05/03/16 22:00 65 05/03/16 20:00 40 05/03/16 20:00 66 05/03/16 20:00 98.8 66 16 137/72 97 05/03/16 19:51 97 40 05/03/16 18:00 65 I/O 05/03/16 05/03/16 05/03/16 05/04/16 05/04/16 05/04/16 07:00 15:00 23:00 07:00 15:00 23:00 Intake Total 1174 ml 1092 ml 685 ml 948 ml 766 ml Output Total 1600 ml 775 ml 375 ml 575 ml 700 ml Balance -426 ml 317 ml 310 ml 373 ml 66 ml Intake Oral 0 ml IV Total 1124 ml 912 ml 505 ml 748 ml 538 ml Tube Feeding 28 ml Tube Irrigant 180 ml 180 ml 200 ml Other 50 ml 200 ml Output Urine Total 1600 ml 775 ml 375 ml 575 ml 700 ml # Bowel Movements 0 0 0 Result Diagram: 05/04/1640705/04/16407 Objective Remarks GENERAL: SKIN: Warm and dry. HEAD: Atraumatic. Normocephalic. EYES: Pupils equal and round. No scleral icterus. No injection or drainage. ENT: No nasal bleeding or discharge. Mucous membranes pink and moist. NECK: Trachea midline. No JVD. CARDIOVASCULAR: Regular rate and rhythm. RESPIRATORY: No accessory muscle use. Clear to auscultation. Breath sounds equal bilaterally. GASTROINTESTINAL: Abdomen soft, non-tender, nondistended. Hepatic and splenic margins not palpable. MUSCULOSKELETAL: Extremities without clubbing, cyanosis, or edema. No obvious deformities. NEUROLOGICAL: Awake and alert. No obvious cranial nerve deficits. Motor grossly within normal limits. Five out of 5 muscle strength in the arms and legs. Normal speech. PSYCHIATRIC: Appropriate mood and affect; insight and judgment normal. Assessment and Plan Assessment and Plan RESPIRATORY FAILURE SEPSIS ARDS JACOB/CSA PLAN VENT SUPPORT FIO2 0.5 PULM TOILET WEAN TOLERATED. CHECK ABG , CXRAY FOR TRACHEOSTOMY TODAY Orlando Perry MD May 04, 2016 16:50
[2016-05-04] MEDS: PANTOPRAZOLE SODIUM 40 MG VIAL IV PUSH SCH (16:55)
[2016-05-04] MEDS: ENOXAPARIN SODIUM 40 MG/0.4 ML SYRINGE SQ SCH (16:57)
--- NOTE | 2016-05-04 17:58 | HHI.GIFU ---
Subjective Remarks Patient is alert, on a vent, nurses by bed side, shaving his garza, per nurse, PEG tube working good, patient tolerating TF (Khushi Moreno) Objective Vitals I&O Vital Signs Date Time Temp Pulse Resp B/P Pulse Ox O2 Delivery O2 Flow Rate FiO2 05/04/16 16:09 98 40 05/04/16 16:00 40 05/04/16 16:00 75 05/04/16 16:00 99.3 75 31 99/62 97 05/04/16 15:43 28 05/04/16 14:00 77 05/04/16 12:00 69 05/04/16 12:00 40 05/04/16 12:00 99.3 69 32 120/74 95 05/04/16 11:14 93 40 05/04/16 10:00 78 05/04/16 08:15 40 05/04/16 08:12 40 05/04/16 08:12 96 40 05/04/16 08:00 99.7 72 32 127/70 97 05/04/16 08:00 40 05/04/16 08:00 72 05/04/16 07:34 98 40 05/04/16 06:00 66 05/04/16 04:00 100.1 63 15 136/81 96 05/04/16 04:00 63 05/04/16 04:00 40 05/04/16 02:00 64 05/04/16 00:00 99.1 67 16 160/76 98 05/04/16 00:00 67 05/04/16 00:00 40 05/03/16 23:24 98 40 05/03/16 22:00 65 05/03/16 20:00 40 05/03/16 20:00 66 05/03/16 20:00 98.8 66 16 137/72 97 05/03/16 19:51 97 40 05/03/16 18:00 65 I/O 05/03/16 05/03/16 05/03/16 05/04/16 05/04/16 05/04/16 07:00 15:00 23:00 07:00 15:00 23:00 Intake Total 1174 ml 1092 ml 685 ml 948 ml 766 ml Output Total 1600 ml 775 ml 375 ml 575 ml 700 ml Balance -426 ml 317 ml 310 ml 373 ml 66 ml Intake Oral 0 ml IV Total 1124 ml 912 ml 505 ml 748 ml 538 ml Tube Feeding 28 ml Tube Irrigant 180 ml 180 ml 200 ml Other 50 ml 200 ml Output Urine Total 1600 ml 775 ml 375 ml 575 ml 700 ml # Bowel Movements 0 0 0 Laboratory Laboratory Tests Test 05/03/16 05/04/16 18:10 04:08 Potassium Level 3.2 3.6 Phosphorus Level 3.8 3.6 White Blood Count 11.0 Red Blood Count 4.35 Hemoglobin 12.0 Hematocrit 36.1 Mean Corpuscular Volume 82.9 Mean Corpuscular Hemoglobin 27.7 Mean Corpuscular Hemoglobin 33.4 Concent Red Cell Distribution Width 16.5 Platelet Count 197 Mean Platelet Volume 8.9 Sodium Level 139 Chloride Level 105 Carbon Dioxide Level 23.1 Anion Gap 11 Blood Urea Nitrogen 12 Creatinine 0.33 Estimat Glomerular Filtration 284 Rate Random Glucose 95 Calcium Level 8.8 Magnesium Level 1.9 Date/Time Procedure Status Source Growth 05/04/16 13:12 Aerobic Blood Culture Received Blood Peripheral Pending 05/04/16 13:12 Anaerobic Blood Culture Received Blood Peripheral Pending 05/04/16 12:55 Gram Stain - Final Resulted Sputum Endotracheal 05/04/16 12:55 Sputum Culture Resulted Sputum Endotracheal Pending 05/04/16 12:50 Urine Culture Received Urine Catheterized Urine Pending Imaging Last Impressions Chest X-Ray 05/03/16 0600 Signed Impressions: Service Date/Time: May 04:08 - CONCLUSION: 1. Subsegmental airspace disease in the lungs. Cardiomegaly. Kyle Lorenzo MD Abdomen X-Ray 05/01/16 0000 Signed Impressions: Service Date/Time: Sunday, May 01, 2016 17:28 - CONCLUSION: No evidence of obstruction. Feeding tube overlies the distal stomach, May have to be advanced slightly to reach the duodenum. Nick Jon MD Chest CT 03/28/16 0836 Signed Impressions: Service Date/Time: Monday, March 28, 2016 09:57 - CONCLUSION: Development areas of air bronchograms and consolidation more prominent in the right and left posterior basilar segments of the lower lobes. ET tube above the chanelle. Bernard Hartman MD CT Angiography 03/24/16 1121 Signed Impressions: Service Date/Time: Thursday, March 24, 2016 12:47 - CONCLUSION: 1. There is respiratory motion artifact but no PE is identified through most of the segmental level pulmonary arteries. 2. Mildly enlarged main pulmonary artery may indicate pulmonary arterial hypertension. 3. 11 mm left lower lobe noncalcified pulmonary nodule. Suggest correlation with any prior imaging studies that could confirm longer-term stability. If none are available consider short-term followup noncontrast chest CT in approximately 3 months. Ubaldo Rodas MD Physical Exam HEENT: normocephalic; atraumatic; no jaundice. NECK: trach in place CHEST: Coarse BS bilaterally, decreased at bases CARDIAC: Regular rate and rhythm ABDOMEN: soft, obese, nondistended, nontender; bowel sounds are present in all four quadrants. PEG tube EXTREMITIES: No clubbing, cyanosis, or edema. SKIN: Normal; no rash; no jaundice. CYTOGENETICIST: alert on a vent (Khushi Moreno) Assessment and Plan Plan - Dysphagia/ENT- S/P EGD/PEG on (05/03/16), tube working good, site looks good Plan: - TF per dietary recommendation - Flush tube with 50 ml of water every 6 hrs - Gi will sign off - Patient seen and examined by Dr Faith and myself and this note is written on his behalf. (Khushi Moreno) Physician Comments Patient seen and examined Agree with above Continue with current supportive care Monitor labs We will sign off (Denis Faith MD) Khushi Moreno May 04, 2016 17:58 Denis Faith MD May 04, 2016 23:43
[2016-05-04] MEDS: SODIUM CHLORIDE 0.9% FLUSH 5 ML FLUSH IVF PRN (20:29)
[2016-05-05] VITALS (13 sets, daily range): BP systolic 93–132; BP diastolic 53–64; PULSE 102–122; RESP 24–32; TEMP 98.8–99.7; O2SAT 93–100
[2016-05-05] MEDS: ARTIFICIAL TEARS OPTH SOLN 15 ML BTL EACH EYE SCH ×6 (01:03→22:29)
[2016-05-05] MEDS ORDERED: METOPROLOL TARTRATE 5 MG/5 ML VIAL IV PUSH ONE (04:00)
[2016-05-05] MEDS: CLINDAMYCIN INJ 600 MG in SODIUM CHLORIDE 0.9% INJ 100 ML IV SCH ×3 (04:17→20:52)
[2016-05-05] MEDS: ACETAMINOPHEN/HYDROcodone 325 MG/5 MG TAB PO SCH ×4 (04:17→20:53)
[2016-05-05] MEDS: INSULIN NovoLIN REGULAR SUPPLEMENTAL SCALE SQ SCH ×3 (06:00→18:00)
[2016-05-05] MEDS: FREE WATER G-TUBE SCH ×3 (06:00→18:00)
[2016-05-05] MEDS: LORazepam 2 MG/ML VIAL IVP PRN (06:05)
[2016-05-05] MEDS: METOCLOPRAMIDE HCL 10 MG/2 ML VIAL IV PUSH SCH ×3 (06:05→22:27)
[2016-05-05] MEDS: ENOXAPARIN SODIUM 40 MG/0.4 ML SYRINGE SQ SCH ×2 (06:06→18:31)
[2016-05-05] MEDS ORDERED: ONDANSETRON HCL 4 MG/2 ML VIAL IV PRN (06:45)
--- NOTE | 2016-05-05 06:53 | HHI.CCPN ---
Subjective Remarks/Hospital Course Patient is a 50 years old obese male with past medical history significant for undiagnosed sleep apnea, super morbid obesity, type 2 diabetes was brought to the emergency department on 03/24/16 after feeling light headed and dizzy. On presentation here was found to be hypoxemic and ABG showed severe hypoxemia and hypercarbia. For a recent driving physical he was diagnosed with low oxygen saturations. Patient's oxygen saturation the ED was in the low 80s, which was confirmed on ABG with a oxygen saturation of 78% and PO2 of 46. CTA negative for PE. Patient was initiated on BiPAP therapy with consult to pulmonary Dr. Crane. His oxygenation improved but he continued to be hypercapnic. Today a.m. on nasal cannula his pH was 7.26 and PCO2 was increased at 99, patient was somnolent was placed back on BiPAP and repeat ABG at noon showed pH 7.26 PCO2 98 and pO2 70. This was on 16 BiPAP with FiO2 50%. Critical care was consulted. On my evaluation patient is somnolent but wakes up easily. I reduced the PEEP on BiPAP from 12-7 to facilitate better ventilation. A repeat ANG showed only minimal improvement, so decision made to intubate patient. Glidescope with #4 blade was used. Only propofol was used for induction. Initially I had a Grade 1-2 view, but I was unable to pass tube through the vocal cord to trachea in two attempts. Tube slipped out of Laryngeal opening both times. Dr Garrett intubated patient after NM paralysis with succinylcholine. Post intubation ABG showed improvement in hypercapnia and oxygenation. 03/27/16: Patient remains intubated heavily sedated with propofol and fentanyl. Remained severely hypoxemic on 100% FiO2, PEEP12, chest x-ray shows bibasilar infiltrates. Flagyl added. We'll give 1 dose of vancomycin-Adjust antibiotics according to cultures. Patient super morbid obesity may prevent Prone therapy 03/28: Remains hypoxic but ABG shows marginal improvement in oxygenation. WBC increasing 20.1 today. Start vancomycin scheduled. 03/29: Oxygenation is slightly improved. FiO2 reduced to 50% today. Chest x- ray remains unchanged. On sedation hold patient does wake up and follow commands. WBC count remains at 20 03/30 No acute events overnight. Sedated with Diprivan and Fentanyl. Had T: 100.1 at 4 am. WBC trending down 15.9 today from 20. 03/31 Patient remains sedated with Diprivan, Fentanyl and intubated. Tmax 100.1. Patient required increase O2 overnight now on ACV with PEEP: 12 and FIO2 70%. 04/01: Tmax 99.7. No bowel movement since admission. Patient has bowel sounds. Arousable on the ventilator. We'll attempt prone the patient paralyzed to increase oxygenation status. 04/02: MAXIMUM TEMPERATURE 100.9. Currently 97.7. 5 10 cc stools overnight. Placed on Roto prone yesterday. Saturations currently 94% on Flolan. Diuresed overnight. Creatinine still within normal limits. 04/03: Tmax 101. Currently 99.1. Positive BM. Did not tolerate not being unprone this AM. Saturations much improved prone. Tolerating tube feeding. 04/04: Tmax 100.8. Currently 98.8. +2 L past 24 hours. Attempt to on prone today. Positive BM. C. difficile negative. Remains paralyzed. 04/05: Remains sedated, orally intubated on neuromuscular blockade on mechanical ventilation. Remains on Rota prone bed. On insulin drip. 04/06: Remains sedated, orally intubated on neuromuscular blockade, on mechanical ventilation. Remains on Rota prone bed. Insulin drip continues. 04/07 Patient remains on Rotoprone bed sedated with Diprivan, Versed, Fentanyl in addition patient is on Nimbex. Afebrile. On Insulin drip 5u/hr. 04/08 Patient remains sedated and intubated and on Nimbex. Off insulin drip. On PRVC/AC with RR 15, TV 550, IT: 1.65, PEEP: 15 and FIO2 100%. T: 100.2 at 4 am. 04/09 Patient is sedated, intubated and remains on neuromuscular blockade. Vent setting unchanged. afebrile. 04/10 Patient remains sedated and intubated and on Nimbex. On PRVC/AC, RR 15, TV 500, PEEP: 15, FIO2 90%, IT:1.65, on Flolan drip. Remains on Rotoprone bed. 04/11 minimal improvement in oxygenation, FiO2 now at 75 - continue to improve oxygenation, worsening CXR 04/13/10 continue to improve oxygenation DC'd prone position last night 04/14- improving oxygenation, Nimbex discontinued as well as prone position 04/16 Patient is sedated with Versed and Fentanyl and intubated. Off rotoprone bed. On PRVC/AC RR 15, TV 550, IT 1.65, PEEP:15, FIO2 50%. 04/17 Patient remains sedated with Versed and Fentanyl. Afebrile, tolerating tube feeds 04/18 No acute events overnight Sedated and intubated. Afebrile. On PRVC/AC RR 15 , TV 550, IT 1.65, PEEP:15, FIO2 60% 04/19: Spiking fever up to 101, pancultured and 1 dose of vancomycin given by ID. On weaning doses of Flolan. FiO2 down to 50% I have reduced PEEP to 14. Remains critically ill 04/20: No fever. Sputum cx with Staph -S pending. Fio2 50% PEEP remains at 14. TV increased to 650 to improve lung recruitment. On weaning dose of Flolan-DC after current bag 04/21:Afebrile. Hyponatremia resolving, the patient will be placed on free water flushes. 04/22:The patient had an episode of acute desaturation requiring FiO2 increased to 90%. Stat chest x-ray stat ABG aggressive pulmonary toileting and suctioning , resolution of symptoms FiO2 now 55%. ABGs within normal limits. 04/23: Tmax 99.5. Currently afebrile. O2 sat 50%. PEEP down to 13. One small bowel movement overnight. 04/24: Currently afebrile. O2 sat 45%. PEEP to 12. One BM. Tolerating tube feeds. 04/25: Afebrile. PEEP down to 11. Positive BM. Tolerating tube feeds. Awake on the ventilator with eyes open. 04/26: Afebrile. PEEP down to 10. Time to feeding. Awake and alert eyes open. 04/27: Suspected fever overnight. One bowel movement documented. Will decreased PEEP to 9. Awake and alert and follows commands. 04/28: Tmax 99.3. Currently afebrile. FiO2 increased to 70%. PEEP to 10. Awake and does follow commands. Positive BM 4 yesterday. Subjective 04/29: FiO2 down to 55%. Peak systolic 10. Awake and does follow commands. Positive BM 1 yesterday. Tolerating tube feeding. 04/30: No acute issues overnight . The patient continues to be sedated with plans for tracheostomy in the OR today. The patient follows commands when on sedation vacation. 05/01: Postop day 1 post tracheostomy tube placement, no issues overnight. Plan for CPAP trials today. 05/02: Afebrile. The patient continues on CPAP trial 15/5 , FiO2 .45%. The patient alert and responsive this a.m., continues on Precedex and fentanyl infusion. By mouth narcotics, and fentanyl patch instituted to transition all fentanyl infusion. PEG tube placement pending. 05/03: The patient's fentanyl infusion was discontinued last evening. Multimodal analgesia initiated. Patient continues on Precedex infusion, GCS 14 T. Plans today for PEG placement later on this afternoon. No acute issues overnight. 05/04 Tmax 101.0. The patient's PICC line was removed, peripheral IVs initiated. Blood, urine and sputum cultures obtained. Methylprednisolone continues to be weaned currently at 20 mg daily. Plan for weaning of Precedex infusion off today. Seroquel 25 mg twice a day added to medication regimen. The patient continues on CPAP trials. 05/05: Tmax 99.1. Overnight the patient was maintained on CPAP trials of 15/5/40% , the patient's respiratory rate continues to be low 30s, tolerated well. The sake early this a.m. the patient was noticed to have a episode of nausea and vomiting Zofran instituted. The patient continues on scheduled Reglan TID. Blood , sputum and urine cultures were obtained yesterday secondary to elevated temperature awaiting results. Objective Vital Signs Date Time Temp Pulse Resp B/P Pulse Ox O2 Delivery O2 Flow Rate FiO2 05/05/16 06:00 110 05/05/16 04:01 97 40 05/05/16 04:00 99.1 27 99/62 Intake and Output 05/04/16 05/04/16 05/05/16 08:00 16:00 00:00 Intake Total 948 ml 766 ml 577 ml Output Total 575 ml 700 ml 400 ml Balance 373 ml 66 ml 177 ml Result Diagram: 05/04/16 0408 05/04/16 0408 Imaging Last Impressions Chest X-Ray 04/27/16 0000 Signed Impressions: Service Date/Time: Wednesday, April 27, 2016 13:37 - CONCLUSION: 1. Under aerated. 2. Support apparatus in good position. Bear Barton MD FACR Abdomen X-Ray 03/31/16 0000 Signed Impressions: Service Date/Time: Thursday, March 31, 2016 09:58 - CONCLUSION: Benign abdomen. Rodrigo Martinez MD Chest CT 03/28/16 0836 Signed Impressions: Service Date/Time: Monday, March 28, 2016 09:57 - CONCLUSION: Development areas of air bronchograms and consolidation more prominent in the right and left posterior basilar segments of the lower lobes. ET tube above the chanelle. Bernard Hartman MD CT Angiography 03/24/16 1121 Signed Impressions: Service Date/Time: Thursday, March 24, 2016 12:47 - CONCLUSION: 1. There is respiratory motion artifact but no PE is identified through most of the segmental level pulmonary arteries. 2. Mildly enlarged main pulmonary artery may indicate pulmonary arterial hypertension. 3. 11 mm left lower lobe noncalcified pulmonary nodule. Suggest correlation with any prior imaging studies that could confirm longer-term stability. If none are available consider short-term followup noncontrast chest CT in approximately 3 months. Ubaldo Rodas MD Objective Remarks GENERAL: 50-year-old morbidly obese male, with tracheostomy, alert and oriented interactive SKIN: Seborrheic dermatitis of the face HEAD: Atraumatic. Normocephalic. EYES: Pupils equal round and slightly reactive about 3 millimeters bilaterally. ENT: NG tube in place. Tracheostomy in situ no drainage or erythema around the site NECK: Very large neck. Trachea midline. CARDIOVASCULAR: Distant heart sounds. RRR. S1, S2. No S4. Without murmur RESPIRATORY: Tracheostomy on CPAP, Breath sounds equal bilaterally. Diminished breath sounds due to body habitus. GASTROINTESTINAL: Abdomen soft, obese, nontender. Severe central obesity ,PEG tube without erythema or drainage MUSCULOSKELETAL: Extremities with trace to 1+ nonpitting bilateral lower extremity edema. NEUROLOGICAL: Alert ,RASS 0, Follows commands, moves extremities 4. Urinary Catheter: Yes Becker insert reason: Measure Accurate Output Date of Insertion: May 03, 2016 Assessment to: Remove Date of Insertion: Apr 02, 2016 Date of Removal: May 03, 2016 Line: PICC Side: Left Location: Antecubital A/P Assessment and Plan Neuro/Psych: Likely SERENITY Toxic metabolic encephalopathy-resolved Precedex infusion off (05/04) Continue Carpenter 5/325mg every 6hrs scheduled, fentanyl patch 25mcgs, and Shauna 5mg PRN, fentanyl patch 25 mcgs q 3 days Precedex infusion 0.5mg/kg/hr Serquel 25mg BID initiated 05/04 Goal of RASS 0 Acetaminophen for fever Pulm: Acute hypoxemic respiratory failure JACOB OHS History of staph aureus pneumonia/HCAP ARDS Continue with vent support keep sat >92%. Bronchodilators every 6 hours and every 2 hours as needed ICU ventilator bundle Flolan off since 04/21 . Solumedrol decreased to 30mg daily 05/02 S/P Tracheostomy 05/01 Dr. Schmitz CPAP trials 16/10 FiO2.40% O2 sat 95% Begin T-piece trials today CV: Monitor HR and BP keep MAP>65mmHg 2-D echo 03/26 EF 60%. No regional wall motion abnormality. Mild MR/TR. /FEN: Hypokalemia Hypernatremia-resolved Hypophosphatemia Monitor renal function, I/O's, electrolytes replacement per protocol. Urine output 625cc/per 12 hours Will begin diuretics GI: Constipation-resolved Moderate protein calorie malnutrition Nausea and vomiting On Glucerna 1.5@45ml/hr with 1 scoop whey protein 3 times a day, no residual Protonix 40mg daily On Reglan 10mg Q8, Senna and Colace twice a day.. Continue MiraLAX twice a day and lactulose 4 times a day. PEG tube placement- 05/03 Zofran 4 mg every 6 hours when necessary ID: Staph aureus pneumonia Possible staph bacteremia Pertinent culture 04/27 - pansensitive staph aureus 04/27 blood cultures 2 negative 04/25 - urine -no growth 04/19 - blood cultures 2 out of 4 - staph aureus 04/19 - sputum - staph aureus 04/08 - sputum - staph aureus 04/03 - sputum - staph aureus 03/30 - sputum- -staph aureus 03/27 - sputum - staph aureus 03/26 - blood - staph hominis On vancomycin 2 g IV every 12 are since 04/19 - 04/29 Azactam 04/27 through 04/29 Currently on clindamycin day #5 ID on board-Dr. Dimayuga Heme: Leukocytosis Monitor CBC/coags Monitor WBC 11.7, unchanged Will obtain labs every 3 days, unless clinically indicated Endo: Diabetes mellitus SSI for glycemic control (high scale) 30 units sliding scale insulin scale insulin in the past 24 hours, Levemir insulin 70 U Q12 MSK Morbid obesity Weight loss encouraged DVT, GI prophylaxis -Bilateral lower extremity SCDs. IV Protonix 40 mg daily. Lovenox 40 mg sq BID LINES: -Left upper extremity PICC line placed 04/15-05/04. Peripheral IVs x 2 Critical Care: Level 2 Dispo: Discussed with DIVIDEND CLERK at bedside. Case management has been consulted for disposition of care. The patient will begin T piece trials today, if successful for 24 hours plans for LTAC transfer. Physician Lourdes Josue MD May 05, 2016 06:53
[2016-05-05] MEDS: CHLORHEXIDINE 0.12% (ORAL KIT) 15 ML CUP MT SCH ×2 (08:00→20:52)
[2016-05-05] MEDS: RESP: ALBUTEROL 2.5 MG/IPRATROPIUM 0.5 MG NEB (PRN) NEB (08:19)
[2016-05-05] MEDS: BENEPROTEIN POWDER 1 PACK G-TUBE SCH ×3 (09:00→18:00)
[2016-05-05] MEDS: POLYETHYLENE GLYCOL 17 GM PKG PO SCH ×2 (09:00→20:54)
[2016-05-05] MEDS: DOCUSATE SODIUM 100 MG/10 ML UDC PO SCH ×2 (09:00→20:53)
[2016-05-05] MEDS: SENNOSIDES SYRUP 8.8 MG/5 ML CUP PO/TUBE SCH ×2 (09:00→20:54)
[2016-05-05] MEDS: REMOVE OLD PATCH T-DERMAL SCH (09:00)
[2016-05-05] MEDS: LACTOBACILLUS ACIDOPHILUS TAB PO SCH ×3 (09:00→18:31)
[2016-05-05] MEDS: INSULIN DETEMIR 100 UNITS/ML VIAL SQ SCH ×2 (09:00→20:53)
[2016-05-05] MEDS: BETAMETHASONE/CLOTRIMAZOLE CREAM 15 GM TOPICAL SCH ×2 (09:02→20:52)
[2016-05-05] MEDS: fentaNYL 25 MCG/HR PATCH TD SCH (09:02)
[2016-05-05] MEDS: NYSTATIN 100,000 U/GM PWD 15 GM BTL TOPICAL SCH ×2 (09:03→20:54)
[2016-05-05] MEDS: QUEtiapine FUMARATE 25 MG TAB PO SCH ×2 (09:03→20:54)
[2016-05-05] MEDS: SODIUM CHLORIDE 0.9% FLUSH 5 ML FLUSH IVF SCH (09:04)
[2016-05-05] MEDS: methylPREDNISolone SOD SUCC 40 MG/1 ML VIAL IV PUSH SCH (09:05)
[2016-05-05] MEDS: BUMETANIDE INJ 1 MG/4 ML VIAL IV PUSH SCH (09:05)
[2016-05-05] MEDS: ARTIFICIAL TEARS OPTH OINT 3.5 APPLIC/3.5 GM TUBO EACH EYE SCH ×2 (09:05→20:52)
--- NOTE | 2016-05-05 16:19 | HHI.IDPN ---
Subjective Subjective Remarks X cover for Dr Painter chart reviewed. is a 50 years old obese male with past medical history significant for undiagnosed sleep apnea, super morbid obesity, type 2 diabetes was brought to the emergency department on 03/24/16. ID following for MSSA pneumonia. pt afebrile x > 24 hrs tolerates Tpiece Not SOB On TF 15 ml/hour S/P trach 04/30 PICC removed Antibiotics Clindamycin Lines PICC 04/15 - removed Past Medical History Reviewed Allergies: Coded Allergies: Penicillin (Verified Allergy, Severe, Swelling, 03/24/16) Tetanus Toxoid (Verified Allergy, Unknown, Swelling, 03/24/16) Objective . Vital Signs Date Time Temp Pulse Resp B/P Pulse Ox O2 Delivery O2 Flow Rate FiO2 05/05/16 08:20 98 40 05/05/16 08:00 102 05/05/16 08:00 40 05/05/16 08:00 99.5 102 28 107/64 98 05/05/16 06:00 110 05/05/16 04:01 97 40 05/05/16 04:00 99.1 114 27 99/62 96 05/05/16 04:00 40 05/05/16 04:00 114 05/05/16 02:00 120 05/05/16 01:37 100 40 05/05/16 00:00 98.8 111 30 93/53 94 05/05/16 00:00 111 05/05/16 00:00 40 05/04/16 22:28 99 40 05/04/16 22:00 101 05/04/16 20:02 99 40 05/04/16 20:00 40 05/04/16 20:00 99.1 99 27 112/57 98 05/04/16 20:00 99 05/04/16 18:00 88 05/04/16 05/04/16 05/05/16 15:00 23:00 07:00 Intake Total 766 ml 577 ml 606 ml Output Total 700 ml 400 ml 225 ml Balance 66 ml 177 ml 381 ml Intake Oral 0 ml IV Total 538 ml 200 ml 148 ml Tube Feeding 28 ml 177 ml 258 ml Other 200 ml 200 ml 200 ml Output Urine Total 700 ml 400 ml 225 ml # Bowel Movements 0 1 . Laboratory Tests Test 05/04/16 04:08 White Blood Count 11.0 TH/MM3 Red Blood Count 4.35 MIL/MM3 Hemoglobin 12.0 GM/DL Hematocrit 36.1 % Mean Corpuscular Volume 82.9 FL Mean Corpuscular Hemoglobin 27.7 PG Mean Corpuscular Hemoglobin 33.4 % Concent Red Cell Distribution Width 16.5 % Platelet Count 197 TH/MM3 Mean Platelet Volume 8.9 FL Laboratory Tests Test 05/03/16 05/04/16 18:10 04:08 Potassium Level 3.2 MEQ/L 3.6 MEQ/L Phosphorus Level 3.8 MG/DL 3.6 MG/DL Sodium Level 139 MEQ/L Chloride Level 105 MEQ/L Carbon Dioxide Level 23.1 MEQ/L Anion Gap 11 MEQ/L Blood Urea Nitrogen 12 MG/DL Creatinine 0.33 MG/DL Estimat Glomerular Filtration 284 ML/MIN Rate Random Glucose 95 MG/DL Calcium Level 8.8 MG/DL Magnesium Level 1.9 MG/DL Microbiology Date/Time Procedure Status Source Growth 05/04/16 11:55 Aerobic Blood Culture - Preliminary Resulted Blood Peripheral NO GROWTH IN 1 DAY 05/04/16 11:55 Anaerobic Blood Culture - Preliminary Resulted Blood Peripheral NO GROWTH IN 1 DAY 05/04/16 12:50 Urine Culture - Preliminary Resulted Urine Catheterized Urine NO GROWTH IN 24 HOURS. 05/04/16 12:55 Gram Stain - Final Resulted Sputum Endotracheal 05/04/16 12:55 Sputum Culture - Preliminary Resulted Sputum Endotracheal HEAVY GROWTH NORMAL RESPIRATORY SHERINE... 05/04/16 13:12 Aerobic Blood Culture - Preliminary Resulted Blood Peripheral NO GROWTH IN 1 DAY 05/04/16 13:12 Anaerobic Blood Culture - Preliminary Resulted Blood Peripheral NO GROWTH IN 1 DAY Imaging Last Impressions Chest X-Ray 05/03/16 0600 Signed Impressions: Service Date/Time: May 04:08 - CONCLUSION: 1. Subsegmental airspace disease in the lungs. Cardiomegaly. Kyle Lorenzo MD Abdomen X-Ray 05/01/16 0000 Signed Impressions: Service Date/Time: Sunday, May 01, 2016 17:28 - CONCLUSION: No evidence of obstruction. Feeding tube overlies the distal stomach, May have to be advanced slightly to reach the duodenum. Nick Jon MD Chest CT 03/28/16 0836 Signed Impressions: Service Date/Time: Monday, March 28, 2016 09:57 - CONCLUSION: Development areas of air bronchograms and consolidation more prominent in the right and left posterior basilar segments of the lower lobes. ET tube above the chanelle. Bernard Hartman MD CT Angiography 03/24/16 1121 Signed Impressions: Service Date/Time: Thursday, March 24, 2016 12:47 - CONCLUSION: 1. There is respiratory motion artifact but no PE is identified through most of the segmental level pulmonary arteries. 2. Mildly enlarged main pulmonary artery may indicate pulmonary arterial hypertension. 3. 11 mm left lower lobe noncalcified pulmonary nodule. Suggest correlation with any prior imaging studies that could confirm longer-term stability. If none are available consider short-term followup noncontrast chest CT in approximately 3 months. Ubaldo Rodas MD Physical Exam GENERAL: on the vent, NAD. Awake and interacting, comfortable on CPAP SKIN: Warm and dry. No generalized rash HEENT: No icterus, moist mucosa NECK: Trach in place, site ok CHEST: rhonchi bilaterally, decreased at bases CARDIAC: regular, no murmur ABDOMEN: soft, obese, (+) BS, PEG site ok. Min tenderness, no guarding : Becker in place, urine looks clear MUSCULOSKELETAL: Extremities without clubbing, cyanosis. No edema NEUROLOGICAL: Awake and interacting PSYCH: Awake, cooperative LINE: PIV no evidence of infection Assessment & Plan Remarks IMPRESSION Leukocytosis, resolved - has been on adequate Abx for pathogens isolated Pneumonia, C/S MSSA - last clx with nl resp sherine - Last CXR stable - S/P RX Sputum with persistent MSSA JACOB Respiratory failure Morbid obesity Allergy to PCN, swelling Fevers, recurrent RECOMMENDATION Monitor temps Continue IV Clindamycin, plan 7 days - to finish 3/5 Monitor temps, WBC Sofi Sauceda MD May 05, 2016 16:19
[2016-05-05] MEDS: PANTOPRAZOLE SODIUM 40 MG VIAL IV PUSH SCH (18:31)
[2016-05-05] MEDS: RESP: ALBUTEROL 2.5 MG/IPRATROPIUM 0.5 MG NEB (SCH) INH (19:35)
[2016-05-06] VITALS (9 sets, daily range): BP systolic 103–144; BP diastolic 60–75; PULSE 103–116; RESP 22–25; TEMP 98–99; O2SAT 94–99
[2016-05-06] MEDS: ACETAMINOPHEN/HYDROcodone 325 MG/5 MG TAB PO SCH ×3 (02:49→15:52)
[2016-05-06] MEDS: ARTIFICIAL TEARS OPTH SOLN 15 ML BTL EACH EYE SCH ×6 (02:49→22:00)
[2016-05-06] MEDS: CLINDAMYCIN INJ 600 MG in SODIUM CHLORIDE 0.9% INJ 100 ML IV SCH ×2 (04:16→15:52)
[2016-05-06] MEDS: FREE WATER G-TUBE SCH ×4 (06:00→18:00)
[2016-05-06] MEDS: INSULIN NovoLIN REGULAR SUPPLEMENTAL SCALE SQ SCH ×4 (06:00→18:00)
[2016-05-06] MEDS: ENOXAPARIN SODIUM 40 MG/0.4 ML SYRINGE SQ SCH ×2 (06:16→18:00)
[2016-05-06] MEDS: METOCLOPRAMIDE HCL 10 MG/2 ML VIAL IV PUSH SCH ×3 (06:16→22:00)
[2016-05-06] MEDS: RESP: ALBUTEROL 2.5 MG/IPRATROPIUM 0.5 MG NEB (SCH) INH ×2 (07:46→20:01)
[2016-05-06] MEDS: CHLORHEXIDINE 0.12% (ORAL KIT) 15 ML CUP MT SCH ×2 (08:00→20:24)
[2016-05-06] MEDS: QUEtiapine FUMARATE 25 MG TAB PO SCH ×2 (08:59→21:21)
[2016-05-06] MEDS: DOCUSATE SODIUM 100 MG/10 ML UDC PO SCH ×2 (08:59→21:00)
[2016-05-06] MEDS: POLYETHYLENE GLYCOL 17 GM PKG PO SCH ×2 (08:59→21:00)
[2016-05-06] MEDS: LACTOBACILLUS ACIDOPHILUS TAB PO SCH ×3 (08:59→18:00)
[2016-05-06] MEDS: BUMETANIDE INJ 1 MG/4 ML VIAL IV PUSH SCH (08:59)
[2016-05-06] MEDS: methylPREDNISolone SOD SUCC 40 MG/1 ML VIAL IV PUSH SCH (08:59)
[2016-05-06] MEDS: SENNOSIDES SYRUP 8.8 MG/5 ML CUP PO/TUBE SCH ×2 (09:00→21:00)
[2016-05-06] MEDS: INSULIN DETEMIR 100 UNITS/ML VIAL SQ SCH ×2 (09:00→21:22)
[2016-05-06] MEDS: ARTIFICIAL TEARS OPTH OINT 3.5 APPLIC/3.5 GM TUBO EACH EYE SCH ×2 (09:00→21:22)
[2016-05-06] MEDS: BENEPROTEIN POWDER 1 PACK G-TUBE SCH ×3 (09:00→18:00)
[2016-05-06] MEDS: BETAMETHASONE/CLOTRIMAZOLE CREAM 15 GM TOPICAL SCH ×2 (09:00→21:22)
[2016-05-06] MEDS: NYSTATIN 100,000 U/GM PWD 15 GM BTL TOPICAL SCH ×2 (09:00→21:22)
[2016-05-06] MEDS: SODIUM CHLORIDE 0.9% FLUSH 5 ML FLUSH IVF SCH (09:01)
[2016-05-06 15:20] LABS: HEMATOCRIT 39.7 % (39.0-51.0); MEAN CELL VOLUME 81.9 FL (80.0-100.0); MEAN CORPUSCULAR HEMOGLOBIN 27.5 PG (27.0-34.0); MEAN CORPUSCULAR HGB CONC 33.5 % (32.0-36.0); PLATELET COUNT 230 TH/MM3 (150-450); RED BLOOD COUNT 4.84 MIL/MM3 (4.50-5.90); RED CELL DISTRIBUTION WIDTH 16.8 % (11.6-17.2); REVIEW FLAG FINAL; WHITE BLOOD COUNT 13.9 TH/MM3 (4.0-11.0)
[2016-05-06 15:54] LABS: BICARBONATE 26.2 MEQ/L (21.0-32.0); MAGNESIUM 1.9 MG/DL (1.5-2.5); POTASSIUM 3.5 MEQ/L (3.5-5.1)
[2016-05-06] MEDS: PANTOPRAZOLE SODIUM 40 MG VIAL IV PUSH SCH (18:00)
--- NOTE | 2016-05-06 18:50 | HHI.CCPN ---
Subjective Remarks/Hospital Course Patient is a 50 years old obese male with past medical history significant for undiagnosed sleep apnea, super morbid obesity, type 2 diabetes was brought to the emergency department on 03/24/16 after feeling light headed and dizzy. On presentation here was found to be hypoxemic and ABG showed severe hypoxemia and hypercarbia. For a recent driving physical he was diagnosed with low oxygen saturations. Patient's oxygen saturation the ED was in the low 80s, which was confirmed on ABG with a oxygen saturation of 78% and PO2 of 46. CTA negative for PE. Patient was initiated on BiPAP therapy with consult to pulmonary Dr. Crane. His oxygenation improved but he continued to be hypercapnic. Today a.m. on nasal cannula his pH was 7.26 and PCO2 was increased at 99, patient was somnolent was placed back on BiPAP and repeat ABG at noon showed pH 7.26 PCO2 98 and pO2 70. This was on 16 BiPAP with FiO2 50%. Critical care was consulted. On my evaluation patient is somnolent but wakes up easily. I reduced the PEEP on BiPAP from 12-7 to facilitate better ventilation. A repeat ANG showed only minimal improvement, so decision made to intubate patient. Glidescope with #4 blade was used. Only propofol was used for induction. Initially I had a Grade 1-2 view, but I was unable to pass tube through the vocal cord to trachea in two attempts. Tube slipped out of Laryngeal opening both times. Dr Garrett intubated patient after NM paralysis with succinylcholine. Post intubation ABG showed improvement in hypercapnia and oxygenation. 03/27/16: Patient remains intubated heavily sedated with propofol and fentanyl. Remained severely hypoxemic on 100% FiO2, PEEP12, chest x-ray shows bibasilar infiltrates. Flagyl added. We'll give 1 dose of vancomycin-Adjust antibiotics according to cultures. Patient super morbid obesity may prevent Prone therapy 03/28: Remains hypoxic but ABG shows marginal improvement in oxygenation. WBC increasing 20.1 today. Start vancomycin scheduled. 03/29: Oxygenation is slightly improved. FiO2 reduced to 50% today. Chest x- ray remains unchanged. On sedation hold patient does wake up and follow commands. WBC count remains at 20 03/30 No acute events overnight. Sedated with Diprivan and Fentanyl. Had T: 100.1 at 4 am. WBC trending down 15.9 today from 20. 03/31 Patient remains sedated with Diprivan, Fentanyl and intubated. Tmax 100.1. Patient required increase O2 overnight now on ACV with PEEP: 12 and FIO2 70%. 04/01: Tmax 99.7. No bowel movement since admission. Patient has bowel sounds. Arousable on the ventilator. We'll attempt prone the patient paralyzed to increase oxygenation status. 04/02: MAXIMUM TEMPERATURE 100.9. Currently 97.7. 5 10 cc stools overnight. Placed on Roto prone yesterday. Saturations currently 94% on Flolan. Diuresed overnight. Creatinine still within normal limits. 04/03: Tmax 101. Currently 99.1. Positive BM. Did not tolerate not being unprone this AM. Saturations much improved prone. Tolerating tube feeding. 04/04: Tmax 100.8. Currently 98.8. +2 L past 24 hours. Attempt to on prone today. Positive BM. C. difficile negative. Remains paralyzed. 04/05: Remains sedated, orally intubated on neuromuscular blockade on mechanical ventilation. Remains on Rota prone bed. On insulin drip. 04/06: Remains sedated, orally intubated on neuromuscular blockade, on mechanical ventilation. Remains on Rota prone bed. Insulin drip continues. 04/07 Patient remains on Rotoprone bed sedated with Diprivan, Versed, Fentanyl in addition patient is on Nimbex. Afebrile. On Insulin drip 5u/hr. 04/08 Patient remains sedated and intubated and on Nimbex. Off insulin drip. On PRVC/AC with RR 15, TV 550, IT: 1.65, PEEP: 15 and FIO2 100%. T: 100.2 at 4 am. 04/09 Patient is sedated, intubated and remains on neuromuscular blockade. Vent setting unchanged. afebrile. 04/10 Patient remains sedated and intubated and on Nimbex. On PRVC/AC, RR 15, TV 500, PEEP: 15, FIO2 90%, IT:1.65, on Flolan drip. Remains on Rotoprone bed. 04/11 minimal improvement in oxygenation, FiO2 now at 75 - continue to improve oxygenation, worsening CXR 04/13/10 continue to improve oxygenation DC'd prone position last night 04/14- improving oxygenation, Nimbex discontinued as well as prone position 04/16 Patient is sedated with Versed and Fentanyl and intubated. Off rotoprone bed. On PRVC/AC RR 15, TV 550, IT 1.65, PEEP:15, FIO2 50%. 04/17 Patient remains sedated with Versed and Fentanyl. Afebrile, tolerating tube feeds 04/18 No acute events overnight Sedated and intubated. Afebrile. On PRVC/AC RR 15 , TV 550, IT 1.65, PEEP:15, FIO2 60% 04/19: Spiking fever up to 101, pancultured and 1 dose of vancomycin given by ID. On weaning doses of Flolan. FiO2 down to 50% I have reduced PEEP to 14. Remains critically ill 04/20: No fever. Sputum cx with Staph -S pending. Fio2 50% PEEP remains at 14. TV increased to 650 to improve lung recruitment. On weaning dose of Flolan-DC after current bag 04/21:Afebrile. Hyponatremia resolving, the patient will be placed on free water flushes. 04/22:The patient had an episode of acute desaturation requiring FiO2 increased to 90%. Stat chest x-ray stat ABG aggressive pulmonary toileting and suctioning , resolution of symptoms FiO2 now 55%. ABGs within normal limits. 04/23: Tmax 99.5. Currently afebrile. O2 sat 50%. PEEP down to 13. One small bowel movement overnight. 04/24: Currently afebrile. O2 sat 45%. PEEP to 12. One BM. Tolerating tube feeds. 04/25: Afebrile. PEEP down to 11. Positive BM. Tolerating tube feeds. Awake on the ventilator with eyes open. 04/26: Afebrile. PEEP down to 10. Time to feeding. Awake and alert eyes open. 04/27: Suspected fever overnight. One bowel movement documented. Will decreased PEEP to 9. Awake and alert and follows commands. 04/28: Tmax 99.3. Currently afebrile. FiO2 increased to 70%. PEEP to 10. Awake and does follow commands. Positive BM 4 yesterday. Subjective 04/29: FiO2 down to 55%. Peak systolic 10. Awake and does follow commands. Positive BM 1 yesterday. Tolerating tube feeding. 04/30: No acute issues overnight . The patient continues to be sedated with plans for tracheostomy in the OR today. The patient follows commands when on sedation vacation. 05/01: Postop day 1 post tracheostomy tube placement, no issues overnight. Plan for CPAP trials today. 05/02: Afebrile. The patient continues on CPAP trial 15/5 , FiO2 .45%. The patient alert and responsive this a.m., continues on Precedex and fentanyl infusion. By mouth narcotics, and fentanyl patch instituted to transition all fentanyl infusion. PEG tube placement pending. 05/03: The patient's fentanyl infusion was discontinued last evening. Multimodal analgesia initiated. Patient continues on Precedex infusion, GCS 14 T. Plans today for PEG placement later on this afternoon. No acute issues overnight. 05/04 Tmax 101.0. The patient's PICC line was removed, peripheral IVs initiated. Blood, urine and sputum cultures obtained. Methylprednisolone continues to be weaned currently at 20 mg daily. Plan for weaning of Precedex infusion off today. Seroquel 25 mg twice a day added to medication regimen. The patient continues on CPAP trials. 05/05: Tmax 99.1. Overnight the patient was maintained on CPAP trials of 15/5/40% , the patient's respiratory rate continues to be low 30s, tolerated well. The sake early this a.m. the patient was noticed to have a episode of nausea and vomiting Zofran instituted. The patient continues on scheduled Reglan TID. Blood , sputum and urine cultures were obtained yesterday secondary to elevated temperature awaiting results. 05/06: The patient remains on T piece greater than 48 hours. The patient is alert oriented and cooperative. Trach site without erythema or drainage. Patient was noticed over the last 12 hours to have multiple bowel movements or in the night. Will D/C MiraLAX, lactulose and Reglan will be discontinued. Plan for possible transfer to LTAC facility. Objective Vital Signs Date Time Temp Pulse Resp B/P Pulse Ox O2 Delivery O2 Flow Rate FiO2 05/06/16 16:00 98.5 116 23 126/71 05/06/16 12:00 98 05/06/16 07:47 T-piece 6.00 60 Intake and Output 05/05/16 05/05/16 05/06/16 08:00 16:00 00:00 Intake Total 606 ml 747 ml 222 ml Output Total 225 ml 1100 ml 350.0 ml Balance 381 ml -353 ml -128.0 ml Result Diagram: 05/06/16 1506 05/06/16 1506 Other Results Microbiology Date/Time Procedure Status Source Growth 05/04/16 12:50 Urine Culture - Final Complete Urine Catheterized Urine NO GROWTH IN 48 HOURS. 05/04/16 12:55 Gram Stain - Final Complete Sputum Endotracheal 05/04/16 12:55 Sputum Culture - Final Complete Staphylococcus Aureus Imaging Last Impressions Chest X-Ray 04/27/16 0000 Signed Impressions: Service Date/Time: Wednesday, April 27, 2016 13:37 - CONCLUSION: 1. Under aerated. 2. Support apparatus in good position. Bear Barton MD FACR Abdomen X-Ray 03/31/16 0000 Signed Impressions: Service Date/Time: Thursday, March 31, 2016 09:58 - CONCLUSION: Benign abdomen. Rodrigo Martinez MD Chest CT 03/28/16 0836 Signed Impressions: Service Date/Time: Monday, March 28, 2016 09:57 - CONCLUSION: Development areas of air bronchograms and consolidation more prominent in the right and left posterior basilar segments of the lower lobes. ET tube above the chanelle. Bernard Hartman MD CT Angiography 03/24/16 1121 Signed Impressions: Service Date/Time: Thursday, March 24, 2016 12:47 - CONCLUSION: 1. There is respiratory motion artifact but no PE is identified through most of the segmental level pulmonary arteries. 2. Mildly enlarged main pulmonary artery may indicate pulmonary arterial hypertension. 3. 11 mm left lower lobe noncalcified pulmonary nodule. Suggest correlation with any prior imaging studies that could confirm longer-term stability. If none are available consider short-term followup noncontrast chest CT in approximately 3 months. Ubaldo Rodas MD Objective Remarks GENERAL: 50-year-old morbidly obese male, with tracheostomy, alert and oriented interactive SKIN: Integrity intact. Warm and dry. HEAD: Atraumatic. Normocephalic. EYES: Pupils equal round and slightly reactive about 3 millimeters bilaterally. ENT: NG tube in place. Tracheostomy in situ no drainage or erythema around the site NECK: Very large neck. Trachea midline. CARDIOVASCULAR: Distant heart sounds. RRR. S1, S2. No S4. Without murmur RESPIRATORY: Tracheostomy on CPAP, Breath sounds equal bilaterally. Diminished breath sounds due to body habitus. GASTROINTESTINAL: Abdomen soft, obese, nontender. Severe central obesity ,PEG tube without erythema or drainage MUSCULOSKELETAL: Extremities with trace to 1+ nonpitting bilateral lower extremity edema. NEUROLOGICAL: Alert ,RASS 0, Follows commands, moves extremities 4. Urinary Catheter: Yes Assessment to: Continue Becker insert reason: Measure Accurate Output Date of Insertion: May 03, 2016 Date of Insertion: Apr 02, 2016 Date of Removal: May 03, 2016 Line: PICC Side: Left Location: Antecubital A/P Assessment and Plan Neuro/Psych: Likely SERENITY Toxic metabolic encephalopathy-resolved Precedex infusion off (05/04) Continue [place] 5/325mg every 6hrs scheduled, fentanyl patch 25mcgs, and Shauna 5mg PRN, fentanyl patch 25 mcgs q 3 days-will begin to wean narcotics Precedex infusion 0.5mg/kg/hr Seroquel 25mg BID initiated 05/04 Goal of RASS 0 Acetaminophen for fever Pulm: Acute hypoxemic respiratory failure JACOB [facility] History of staph aureus pneumonia/HCAP ARDS Continue with vent support keep sat >92%. Bronchodilators every 6 hours and every 2 hours as needed ICU ventilator bundle Flolan off since 04/21 . Solumedrol decreased to 20mg daily 05/03 S/P Tracheostomy 05/01 Dr. Schmitz T-piece trials 05/05 CV: Monitor HR and BP keep MAP>65mmHg 2-D echo 03/26 EF 60%. No regional wall motion abnormality. Mild MR/TR. /FEN: Hypokalemia Hypernatremia-resolved Hypophosphatemia Monitor renal function, I/O's, electrolytes replacement per protocol. Urine output 625cc/per 12 hours Bumex 0.5mg/day GI: Constipation-resolved Moderate protein calorie malnutrition Nausea and vomiting On Glucerna 1.5@45ml/hr with 1 scoop whey protein 3 times a day, no residual Protonix 40mg daily On Reglan 10mg Q8, Senna and Colace twice a day.Discontinue MiraLAX twice a day and lactulose 4 times a day. PEG tube placement- 05/03 Zofran 4 mg every 6 hours when necessary ID: Staph aureus pneumonia Possible staph bacteremia Pertinent culture 04/27 - pansensitive staph aureus 04/27 blood cultures 2 negative 04/25 - urine -no growth 04/19 - blood cultures 2 out of 4 - staph aureus 04/19 - sputum - staph aureus 04/08 - sputum - staph aureus 04/03 - sputum - staph aureus 03/30 - sputum- -staph aureus 03/27 - sputum - staph aureus 03/26 - blood - staph hominis On vancomycin 2 g IV every 12 are since 04/19 - 04/29 Azactam 04/27 through 04/29 Currently on clindamycin day #5 ID on board-Dr. Painter Heme: Leukocytosis Monitor CBC/coags Monitor WBC 11.7, unchanged Will obtain labs every 3 days, unless clinically indicated Endo: Diabetes mellitus SSI for glycemic control (high scale) 30 units sliding scale insulin scale insulin in the past 24 hours, Levemir insulin 70 U Q12 MSK Morbid obesity Weight loss encouraged DVT, GI prophylaxis -Bilateral lower extremity SCDs. IV Protonix 40 mg daily. Lovenox 40 mg sq BID LINES: -Left upper extremity PICC line placed 04/15-05/04. Peripheral IVs x 2 Critical Care: Level 2 Dispo: Discussed with ADDICTIONS COUNSELOR at bedside. Case management has been consulted for disposition of care. The patient T piece trials successful for 24 hours plans for LTAC transfer. Physician Lourdes Josue MD May 06, 2016 18:50
[2016-05-06] MEDS: SODIUM CHLORIDE 0.9% FLUSH 5 ML FLUSH IVF PRN ×2 (20:24→21:22)
[2016-05-06] MEDS: LORazepam 2 MG/ML VIAL IVP PRN (20:25)
[2016-05-07] VITALS (13 sets, daily range): BP systolic 125–157; BP diastolic 67–83; PULSE 109–130; RESP 24–37; TEMP 97.9–99.2; O2SAT 91–97
[2016-05-07] MEDS: oxyCODONE HCL ORAL CONC 20 MG/ML SYRINGE PO PRN (04:42)
[2016-05-07] MEDS: LORazepam 2 MG/ML VIAL IVP PRN (04:42)
[2016-05-07] MEDS: METOCLOPRAMIDE HCL 10 MG/2 ML VIAL IV PUSH SCH ×3 (05:33→20:31)
[2016-05-07] MEDS: INSULIN NovoLIN REGULAR SUPPLEMENTAL SCALE SQ SCH ×4 (05:33→17:39)
[2016-05-07] MEDS: ENOXAPARIN SODIUM 40 MG/0.4 ML SYRINGE SQ SCH ×2 (05:34→17:33)
[2016-05-07] MEDS: FREE WATER G-TUBE SCH ×4 (05:34→17:33)
[2016-05-07 06:24] LABS: HEMATOCRIT 38.9 % (39.0-51.0); MEAN CELL VOLUME 83.2 FL (80.0-100.0); MEAN CORPUSCULAR HEMOGLOBIN 27.1 PG (27.0-34.0); MEAN CORPUSCULAR HGB CONC 32.5 % (32.0-36.0); PLATELET COUNT 236 TH/MM3 (150-450); RED BLOOD COUNT 4.68 MIL/MM3 (4.50-5.90); RED CELL DISTRIBUTION WIDTH 16.8 % (11.6-17.2); REVIEW FLAG FINAL; WHITE BLOOD COUNT 12.1 TH/MM3 (4.0-11.0)
[2016-05-07 06:45] LABS: BICARBONATE 28.7 MEQ/L (21.0-32.0); POTASSIUM 3.2 MEQ/L (3.5-5.1)
[2016-05-07] MEDS: RESP: ALBUTEROL 2.5 MG/IPRATROPIUM 0.5 MG NEB (SCH) INH ×3 (07:53→20:46)
[2016-05-07] MEDS: QUEtiapine FUMARATE 25 MG TAB PO SCH ×2 (08:44→20:31)
[2016-05-07] MEDS: ACETAMINOPHEN/HYDROcodone 325 MG/5 MG TAB PO SCH ×2 (08:45→20:31)
[2016-05-07] MEDS: methylPREDNISolone SOD SUCC 40 MG/1 ML VIAL IV PUSH SCH (08:45)
[2016-05-07] MEDS: BUMETANIDE INJ 1 MG/4 ML VIAL IV PUSH SCH (08:45)
[2016-05-07] MEDS: NYSTATIN 100,000 U/GM PWD 15 GM BTL TOPICAL SCH ×2 (08:46→20:36)
[2016-05-07] MEDS: SENNOSIDES SYRUP 8.8 MG/5 ML CUP PO/TUBE SCH ×2 (08:46→20:30)
[2016-05-07] MEDS: BETAMETHASONE/CLOTRIMAZOLE CREAM 15 GM TOPICAL SCH ×2 (08:46→20:36)
[2016-05-07] MEDS: INSULIN DETEMIR 100 UNITS/ML VIAL SQ SCH ×2 (08:46→20:31)
[2016-05-07] MEDS: ARTIFICIAL TEARS OPTH SOLN 15 ML BTL EACH EYE SCH ×5 (08:46→23:26)
[2016-05-07] MEDS: POLYETHYLENE GLYCOL 17 GM PKG PO SCH ×2 (08:46→20:31)
[2016-05-07] MEDS: ARTIFICIAL TEARS OPTH OINT 3.5 APPLIC/3.5 GM TUBO EACH EYE SCH ×2 (08:47→23:27)
[2016-05-07] MEDS: DOCUSATE SODIUM 100 MG/10 ML UDC PO SCH ×2 (08:47→20:30)
[2016-05-07] MEDS: BENEPROTEIN POWDER 1 PACK G-TUBE SCH ×3 (08:47→17:33)
[2016-05-07] MEDS: SODIUM CHLORIDE 0.9% FLUSH 5 ML FLUSH IVF SCH (08:47)
[2016-05-07] MEDS: LACTOBACILLUS ACIDOPHILUS TAB PO SCH ×3 (08:47→17:34)
[2016-05-07] MEDS: CHLORHEXIDINE 0.12% (ORAL KIT) 15 ML CUP MT SCH ×2 (08:48→20:29)
[2016-05-07] MEDS: POTASSIUM CHLOR 20 MEQ PREMIX 100 ML IV PRN ×4 (09:42→23:26)
--- NOTE | 2016-05-07 10:03 | HHI.IDPN ---
Subjective Subjective Remarks is a 50 years old obese male with past medical history significant for undiagnosed sleep apnea, super morbid obesity, type 2 diabetes was brought to the emergency department on 03/24/16. ID following for MSSA pneumonia. Notes reviewed Tolerating T-piece Has been on T-piece since weekend Finished course of Clindamycin Last sputtum 05/04 still with MSSA likely colonized Temps ok Not SOB S/P trach 04/30 BC ok Antibiotics Clindamycin finished 05/06 Lines PICC 04/15 - removed Past Medical History Reviewed Allergies: Coded Allergies: Penicillin (Verified Allergy, Severe, Swelling, 03/24/16) Tetanus Toxoid (Verified Allergy, Unknown, Swelling, 03/24/16) Objective . Vital Signs Date Time Temp Pulse Resp B/P Pulse Ox O2 Delivery O2 Flow Rate FiO2 05/07/16 08:00 92 T-piece 40 05/07/16 06:00 113 05/07/16 04:00 98.5 109 24 133/71 94 05/07/16 04:00 109 05/07/16 02:00 110 05/07/16 00:00 112 05/07/16 00:00 98.4 112 24 125/67 94 05/06/16 22:00 112 05/06/16 20:02 94 T-piece 6.00 40 05/06/16 20:00 98.2 116 24 144/75 99 05/06/16 20:00 116 05/06/16 20:00 99 T-Piece 40 05/06/16 16:00 98.5 116 23 126/71 05/06/16 12:00 98.0 111 22 139/72 98 05/06/16 05/06/16 05/07/16 15:00 23:00 07:00 Intake Total 405 ml 309 ml 451 ml Output Total 1800 ml 225 ml 200 ml Balance -1395 ml 84 ml 251 ml IV Total 50 ml 125 ml 39 ml Tube Feeding 155 ml 124 ml 182 ml Other 200 ml 60 ml 230 ml Output Urine Total 1800 ml 225 ml 200 ml Tube Feeding Residual Discard 0 ml 0 ml # Bowel Movements 1 0 0 . Laboratory Tests Test 05/06/16 05/07/16 15:06 06:01 White Blood Count 13.9 TH/MM3 12.1 TH/MM3 Red Blood Count 4.84 MIL/MM3 4.68 MIL/MM3 Hemoglobin 13.3 GM/DL 12.7 GM/DL Hematocrit 39.7 % 38.9 % Mean Corpuscular Volume 81.9 FL 83.2 FL Mean Corpuscular Hemoglobin 27.5 PG 27.1 PG Mean Corpuscular Hemoglobin 33.5 % 32.5 % Concent Red Cell Distribution Width 16.8 % 16.8 % Platelet Count 230 TH/MM3 236 TH/MM3 Mean Platelet Volume 8.3 FL 8.1 FL Laboratory Tests Test 05/06/16 05/07/16 15:06 06:01 Sodium Level 137 MEQ/L 139 MEQ/L Potassium Level 3.5 MEQ/L 3.2 MEQ/L Chloride Level 97 MEQ/L 99 MEQ/L Carbon Dioxide Level 26.2 MEQ/L 28.7 MEQ/L Anion Gap 14 MEQ/L 11 MEQ/L Blood Urea Nitrogen 8 MG/DL 9 MG/DL Creatinine 0.39 MG/DL 0.36 MG/DL Estimat Glomerular Filtration 234 ML/MIN 257 ML/MIN Rate Random Glucose 176 MG/DL 117 MG/DL Calcium Level 8.7 MG/DL 9.3 MG/DL Phosphorus Level 2.9 MG/DL 2.6 MG/DL Magnesium Level 1.9 MG/DL 2.0 MG/DL Microbiology Date/Time Procedure Status Source Growth 05/04/16 11:55 Aerobic Blood Culture - Preliminary Resulted Blood Peripheral NO GROWTH IN 2 DAYS 05/04/16 11:55 Anaerobic Blood Culture - Preliminary Resulted Blood Peripheral NO GROWTH IN 2 DAYS 05/04/16 12:50 Urine Culture - Final Complete Urine Catheterized Urine NO GROWTH IN 48 HOURS. 05/04/16 12:55 Gram Stain - Final Complete Sputum Endotracheal 05/04/16 12:55 Sputum Culture - Final Complete Staphylococcus Aureus 05/04/16 13:12 Aerobic Blood Culture - Preliminary Resulted Blood Peripheral NO GROWTH IN 2 DAYS 05/04/16 13:12 Anaerobic Blood Culture - Preliminary Resulted Blood Peripheral NO GROWTH IN 2 DAYS Imaging Last Impressions Chest X-Ray 05/03/16 0600 Signed Impressions: Service Date/Time: May 04:08 - CONCLUSION: 1. Subsegmental airspace disease in the lungs. Cardiomegaly. Kyle Lorenzo MD Abdomen X-Ray 05/01/16 0000 Signed Impressions: Service Date/Time: Sunday, May 01, 2016 17:28 - CONCLUSION: No evidence of obstruction. Feeding tube overlies the distal stomach, May have to be advanced slightly to reach the duodenum. Nick Jon MD Chest CT 03/28/16 0836 Signed Impressions: Service Date/Time: Monday, March 28, 2016 09:57 - CONCLUSION: Development areas of air bronchograms and consolidation more prominent in the right and left posterior basilar segments of the lower lobes. ET tube above the chanelle. Bernard Hartman MD CT Angiography 03/24/16 1121 Signed Impressions: Service Date/Time: Thursday, March 24, 2016 12:47 - CONCLUSION: 1. There is respiratory motion artifact but no PE is identified through most of the segmental level pulmonary arteries. 2. Mildly enlarged main pulmonary artery may indicate pulmonary arterial hypertension. 3. 11 mm left lower lobe noncalcified pulmonary nodule. Suggest correlation with any prior imaging studies that could confirm longer-term stability. If none are available consider short-term followup noncontrast chest CT in approximately 3 months. Ubaldo Rodas MD Physical Exam GENERAL: Awake and interacting, comfortable on T-piece SKIN: Warm and dry. No generalized rash HEENT: No icterus, moist mucosa NECK: Trach in place, site ok CHEST: Occ rhonchi, decreased at bases CARDIAC: regular, no murmur ABDOMEN: soft, obese, (+) BS, PEG site ok. Not tender, no guarding : Becker in place, urine looks clear MUSCULOSKELETAL: Extremities without clubbing, cyanosis. No edema NEUROLOGICAL: Awake and interacting PSYCH: Awake, cooperative LINE: PIV no evidence of infection Assessment & Plan Remarks IMPRESSION Leukocytosis, slightly up - afebrile Pneumonia, C/S MSSA - CXR stable - S/P RX - likely colonized Sputum with persistent MSSA, likely colonization JACOB Respiratory failure, S/P trach, tolerating T-piece Morbid obesity Allergy to PCN, swelling Fevers, resolved RECOMMENDATION Monitor temps Monitor progress Has been tolerating T-piece >48 hours Being eval for LTAC Seems clinically stable from ID standpoint Elisha Painter MD May 07, 2016 10:03
--- NOTE | 2016-05-07 12:23 | HHI.CCPN ---
Subjective Remarks/Hospital Course Patient is a 50 years old obese male with past medical history significant for undiagnosed sleep apnea, super morbid obesity, type 2 diabetes was brought to the emergency department on 03/24/16 after feeling light headed and dizzy. On presentation here was found to be hypoxemic and ABG showed severe hypoxemia and hypercarbia. For a recent driving physical he was diagnosed with low oxygen saturations. Patient's oxygen saturation the ED was in the low 80s, which was confirmed on ABG with a oxygen saturation of 78% and PO2 of 46. CTA negative for PE. Patient was initiated on BiPAP therapy with consult to pulmonary Dr. Crane. His oxygenation improved but he continued to be hypercapnic. Today a.m. on nasal cannula his pH was 7.26 and PCO2 was increased at 99, patient was somnolent was placed back on BiPAP and repeat ABG at noon showed pH 7.26 PCO2 98 and pO2 70. This was on 16 BiPAP with FiO2 50%. Critical care was consulted. On my evaluation patient is somnolent but wakes up easily. I reduced the PEEP on BiPAP from 12-7 to facilitate better ventilation. A repeat ANG showed only minimal improvement, so decision made to intubate patient. Glidescope with #4 blade was used. Only propofol was used for induction. Initially I had a Grade 1-2 view, but I was unable to pass tube through the vocal cord to trachea in two attempts. Tube slipped out of Laryngeal opening both times. Dr Garrett intubated patient after NM paralysis with succinylcholine. Post intubation ABG showed improvement in hypercapnia and oxygenation. 03/27/16: Patient remains intubated heavily sedated with propofol and fentanyl. Remained severely hypoxemic on 100% FiO2, PEEP12, chest x-ray shows bibasilar infiltrates. Flagyl added. We'll give 1 dose of vancomycin-Adjust antibiotics according to cultures. Patient super morbid obesity may prevent Prone therapy 03/28: Remains hypoxic but ABG shows marginal improvement in oxygenation. WBC increasing 20.1 today. Start vancomycin scheduled. 03/29: Oxygenation is slightly improved. FiO2 reduced to 50% today. Chest x- ray remains unchanged. On sedation hold patient does wake up and follow commands. WBC count remains at 20 03/30 No acute events overnight. Sedated with Diprivan and Fentanyl. Had T: 100.1 at 4 am. WBC trending down 15.9 today from 20. 03/31 Patient remains sedated with Diprivan, Fentanyl and intubated. Tmax 100.1. Patient required increase O2 overnight now on ACV with PEEP: 12 and FIO2 70%. 04/01: Tmax 99.7. No bowel movement since admission. Patient has bowel sounds. Arousable on the ventilator. We'll attempt prone the patient paralyzed to increase oxygenation status. 04/02: MAXIMUM TEMPERATURE 100.9. Currently 97.7. 5 10 cc stools overnight. Placed on Roto prone yesterday. Saturations currently 94% on Flolan. Diuresed overnight. Creatinine still within normal limits. 04/03: Tmax 101. Currently 99.1. Positive BM. Did not tolerate not being unprone this AM. Saturations much improved prone. Tolerating tube feeding. 04/04: Tmax 100.8. Currently 98.8. +2 L past 24 hours. Attempt to on prone today. Positive BM. C. difficile negative. Remains paralyzed. 04/05: Remains sedated, orally intubated on neuromuscular blockade on mechanical ventilation. Remains on Rota prone bed. On insulin drip. 04/06: Remains sedated, orally intubated on neuromuscular blockade, on mechanical ventilation. Remains on Rota prone bed. Insulin drip continues. 04/07 Patient remains on Rotoprone bed sedated with Diprivan, Versed, Fentanyl in addition patient is on Nimbex. Afebrile. On Insulin drip 5u/hr. 04/08 Patient remains sedated and intubated and on Nimbex. Off insulin drip. On PRVC/AC with RR 15, TV 550, IT: 1.65, PEEP: 15 and FIO2 100%. T: 100.2 at 4 am. 04/09 Patient is sedated, intubated and remains on neuromuscular blockade. Vent setting unchanged. afebrile. 04/10 Patient remains sedated and intubated and on Nimbex. On PRVC/AC, RR 15, TV 500, PEEP: 15, FIO2 90%, IT:1.65, on Flolan drip. Remains on Rotoprone bed. 04/11 minimal improvement in oxygenation, FiO2 now at 75 - continue to improve oxygenation, worsening CXR 04/13/10 continue to improve oxygenation DC'd prone position last night 04/14- improving oxygenation, Nimbex discontinued as well as prone position 04/16 Patient is sedated with Versed and Fentanyl and intubated. Off rotoprone bed. On PRVC/AC RR 15, TV 550, IT 1.65, PEEP:15, FIO2 50%. 04/17 Patient remains sedated with Versed and Fentanyl. Afebrile, tolerating tube feeds 04/18 No acute events overnight Sedated and intubated. Afebrile. On PRVC/AC RR 15 , TV 550, IT 1.65, PEEP:15, FIO2 60% 04/19: Spiking fever up to 101, pancultured and 1 dose of vancomycin given by ID. On weaning doses of Flolan. FiO2 down to 50% I have reduced PEEP to 14. Remains critically ill 04/20: No fever. Sputum cx with Staph -S pending. Fio2 50% PEEP remains at 14. TV increased to 650 to improve lung recruitment. On weaning dose of Flolan-DC after current bag 04/21:Afebrile. Hyponatremia resolving, the patient will be placed on free water flushes. 04/22:The patient had an episode of acute desaturation requiring FiO2 increased to 90%. Stat chest x-ray stat ABG aggressive pulmonary toileting and suctioning , resolution of symptoms FiO2 now 55%. ABGs within normal limits. 04/23: Tmax 99.5. Currently afebrile. O2 sat 50%. PEEP down to 13. One small bowel movement overnight. 04/24: Currently afebrile. O2 sat 45%. PEEP to 12. One BM. Tolerating tube feeds. 04/25: Afebrile. PEEP down to 11. Positive BM. Tolerating tube feeds. Awake on the ventilator with eyes open. 04/26: Afebrile. PEEP down to 10. Time to feeding. Awake and alert eyes open. 04/27: Suspected fever overnight. One bowel movement documented. Will decreased PEEP to 9. Awake and alert and follows commands. 04/28: Tmax 99.3. Currently afebrile. FiO2 increased to 70%. PEEP to 10. Awake and does follow commands. Positive BM 4 yesterday. Subjective 04/29: FiO2 down to 55%. Peak systolic 10. Awake and does follow commands. Positive BM 1 yesterday. Tolerating tube feeding. 04/30: No acute issues overnight . The patient continues to be sedated with plans for tracheostomy in the OR today. The patient follows commands when on sedation vacation. 05/01: Postop day 1 post tracheostomy tube placement, no issues overnight. Plan for CPAP trials today. 05/02: Afebrile. The patient continues on CPAP trial 15/5 , FiO2 .45%. The patient alert and responsive this a.m., continues on Precedex and fentanyl infusion. By mouth narcotics, and fentanyl patch instituted to transition all fentanyl infusion. PEG tube placement pending. 05/03: The patient's fentanyl infusion was discontinued last evening. Multimodal analgesia initiated. Patient continues on Precedex infusion, GCS 14 T. Plans today for PEG placement later on this afternoon. No acute issues overnight. 05/04 Tmax 101.0. The patient's PICC line was removed, peripheral IVs initiated. Blood, urine and sputum cultures obtained. Methylprednisolone continues to be weaned currently at 20 mg daily. Plan for weaning of Precedex infusion off today. Seroquel 25 mg twice a day added to medication regimen. The patient continues on CPAP trials. 05/05: Tmax 99.1. Overnight the patient was maintained on CPAP trials of 15/5/40% , the patient's respiratory rate continues to be low 30s, tolerated well. The sake early this a.m. the patient was noticed to have a episode of nausea and vomiting Zofran instituted. The patient continues on scheduled Reglan TID. Blood , sputum and urine cultures were obtained yesterday secondary to elevated temperature awaiting results. 05/06: The patient remains on T piece greater than 48 hours. The patient is alert oriented and cooperative. Trach site without erythema or drainage. Patient was noticed over the last 12 hours to have multiple bowel movements or in the night. Will D/C MiraLAX, lactulose and Reglan will be discontinued. Plan for possible transfer to LTAC facility. 05/07 no acute issues overnight tolerating TPs Objective Vital Signs Date Time Temp Pulse Resp B/P Pulse Ox O2 Delivery O2 Flow Rate FiO2 05/07/16 10:00 122 05/07/16 08:00 92 T-piece 40 05/07/16 08:00 99.0 24 144/68 05/06/16 20:02 6.00 Intake and Output 05/06/16 05/06/16 05/07/16 08:00 16:00 00:00 Intake Total 461 ml 405 ml 309 ml Output Total 250 ml 1800 ml 225.0 ml Balance 211 ml -1395 ml 84.0 ml Result Diagram: 05/07/16 0601 05/07/16 0601 Other Results Microbiology Date/Time Procedure Status Source Growth 05/04/16 12:50 Urine Culture - Final Complete Urine Catheterized Urine NO GROWTH IN 48 HOURS. 05/04/16 12:55 Gram Stain - Final Complete Sputum Endotracheal 05/04/16 12:55 Sputum Culture - Final Complete Staphylococcus Aureus Imaging Last Impressions Chest X-Ray 04/27/16 0000 Signed Impressions: Service Date/Time: Wednesday, April 27, 2016 13:37 - CONCLUSION: 1. Under aerated. 2. Support apparatus in good position. Bear Barton MD FACR Abdomen X-Ray 03/31/16 0000 Signed Impressions: Service Date/Time: Thursday, March 31, 2016 09:58 - CONCLUSION: Benign abdomen. Rodrigo Martinez MD Chest CT 03/28/16 0836 Signed Impressions: Service Date/Time: Monday, March 28, 2016 09:57 - CONCLUSION: Development areas of air bronchograms and consolidation more prominent in the right and left posterior basilar segments of the lower lobes. ET tube above the chanelle. Bernard Hartman MD CT Angiography 03/24/16 1121 Signed Impressions: Service Date/Time: Thursday, March 24, 2016 12:47 - CONCLUSION: 1. There is respiratory motion artifact but no PE is identified through most of the segmental level pulmonary arteries. 2. Mildly enlarged main pulmonary artery may indicate pulmonary arterial hypertension. 3. 11 mm left lower lobe noncalcified pulmonary nodule. Suggest correlation with any prior imaging studies that could confirm longer-term stability. If none are available consider short-term followup noncontrast chest CT in approximately 3 months. Ubaldo Rodas MD Objective Remarks GENERAL: 50-year-old morbidly obese male, with tracheostomy, alert and oriented interactive SKIN: Integrity intact. Warm and dry. HEAD: Atraumatic. Normocephalic. EYES: Pupils equal round and slightly reactive about 3 millimeters bilaterally. ENT: NG tube in place. Tracheostomy in situ no drainage or erythema around the site NECK: Very large neck. Trachea midline. CARDIOVASCULAR: Distant heart sounds. RRR. S1, S2. No S4. Without murmur RESPIRATORY: Tracheostomy on CPAP, Breath sounds equal bilaterally. Diminished breath sounds due to body habitus. GASTROINTESTINAL: Abdomen soft, obese, nontender. Severe central obesity ,PEG tube without erythema or drainage MUSCULOSKELETAL: Extremities with trace to 1+ nonpitting bilateral lower extremity edema. NEUROLOGICAL: Alert ,RASS 0, Follows commands, moves extremities 4. Date of Insertion: May 03, 2016 Date of Insertion: Apr 02, 2016 Date of Removal: May 03, 2016 Line: PICC Side: Left Location: Antecubital A/P Assessment and Plan Neuro/Psych: Likely SERENITY Toxic metabolic encephalopathy-resolved off Precedex infusion (05/04) Continue [place] 5/325mg every 6hrs scheduled, fentanyl patch 25mcgs, and Shauna 5mg PRN, fentanyl patch 25 mcgs q 3 days-will begin to wean narcotics Seroquel 25mg BID initiated 05/04 Goal of RASS 0 Acetaminophen for fever Pulm: Acute hypoxemic respiratory failure JACOB OHS History of staph aureus pneumonia/HCAP ARDS Trach collar with oxygen support to keep side>92%. Bronchodilators every 6 hours and every 2 hours as needed Consult pulmonary program for chronic respiratory failure CV: Monitor HR and BP keep MAP>65mmHg 2-D echo 03/26 EF 60%. No regional wall motion abnormality. Mild MR/TR. /FEN: Hypokalemia Hypernatremia-resolved Hypophosphatemia Monitor renal function, I/O's, electrolytes replacement per protocol. Urine output 625cc/per 12 hours Bumex 0.5mg/day GI: Constipation-resolved Moderate protein calorie malnutrition Nausea and vomiting On Glucerna 1.5@45ml/hr with 1 scoop whey protein 3 times a day, no residual Protonix 40mg daily On Reglan 10mg Q8, Senna and Colace twice a day.Discontinue MiraLAX twice a day and lactulose 4 times a day. PEG tube placement- 05/03 Zofran 4 mg every 6 hours when necessary ID: Staph aureus pneumonia Possible staph bacteremia Pertinent culture 04/27 - pansensitive staph aureus 04/27 blood cultures 2 negative 04/25 - urine -no growth 04/19 - blood cultures 2 out of 4 - staph aureus 04/19 - sputum - staph aureus 04/08 - sputum - staph aureus 04/03 - sputum - staph aureus 03/30 - sputum- -staph aureus 03/27 - sputum - staph aureus 03/26 - blood - staph hominis On vancomycin 2 g IV every 12 are since 04/19 - 04/29 Azactam 04/27 through 04/29 Currently on clindamycin day #5 ID on board-Dr. Painter Heme: Leukocytosis Monitor CBC/coags Monitor WBC 11.7, unchanged labs every 3 days, unless clinically indicated Endo: Diabetes mellitus SSI for glycemic control (high scale) 30 units sliding scale insulin scale insulin in the past 24 hours, Levemir insulin 70 U Q12 MSK Morbid obesity Weight loss encouraged DVT, GI prophylaxis -Bilateral lower extremity SCDs. IV Protonix 40 mg daily. Lovenox 40 mg sq BID LINES: -Left upper extremity PICC line placed 04/15-05/04. Peripheral IVs x 2 Critical Care: Level 2 Dispo: Case management has been consulted for disposition of care. The patient T piece trials successful for 48 hours plans for LTAC transfer. Jermaine Martini MD May 07, 2016 12:23
--- NOTE | 2016-05-07 16:41 | HHI.PR ---
Subjective Remarks ON THE VENT SEDATED FIO2 AT 50% less sedation alert, nods yes ,no Objective Vital Signs Date Time Temp Pulse Resp B/P Pulse Ox O2 Delivery O2 Flow Rate FiO2 05/07/16 16:00 122 05/07/16 16:00 99.2 130 37 157/68 94 05/07/16 14:00 126 05/07/16 12:00 98.2 115 24 154/70 91 05/07/16 12:00 115 05/07/16 10:00 122 05/07/16 08:00 92 T-piece 40 05/07/16 08:00 99.0 109 24 144/68 93 05/07/16 08:00 99 T-Piece 40 05/07/16 08:00 109 05/07/16 06:00 113 05/07/16 04:00 98.5 109 24 133/71 94 05/07/16 04:00 109 05/07/16 02:00 110 05/07/16 00:00 112 05/07/16 00:00 98.4 112 24 125/67 94 05/06/16 22:00 112 05/06/16 20:02 94 T-piece 6.00 40 05/06/16 20:00 98.2 116 24 144/75 99 05/06/16 20:00 116 05/06/16 20:00 99 T-Piece 40 I/O 05/06/16 05/06/16 05/06/16 05/07/16 05/07/16 05/07/16 07:00 15:00 23:00 07:00 15:00 23:00 Intake Total 461 ml 405 ml 309 ml 451 ml 533 ml Output Total 250 ml 1800 ml 225 ml 200 ml 1000 ml Balance 211 ml -1395 ml 84 ml 251 ml -467 ml IV Total 147 ml 50 ml 125 ml 39 ml 0 ml Tube Feeding 114 ml 155 ml 124 ml 182 ml 333 ml Other 200 ml 200 ml 60 ml 230 ml 200 ml Output Urine Total 250 ml 1800 ml 225 ml 200 ml 1000 ml Tube Feeding Residual Discard 0 ml 0 ml 0 ml 0 ml # Bowel Movements 1 1 0 0 0 Result Diagram: 05/07/16 0601 05/07/16 0601 Objective Remarks GENERAL: SKIN: Warm and dry. HEAD: Atraumatic. Normocephalic. EYES: Pupils equal and round. No scleral icterus. No injection or drainage. ENT: No nasal bleeding or discharge. Mucous membranes pink and moist. NECK: Trachea midline. No JVD. CARDIOVASCULAR: Regular rate and rhythm. RESPIRATORY: No accessory muscle use. Clear to auscultation. Breath sounds equal bilaterally. GASTROINTESTINAL: Abdomen soft, non-tender, nondistended. Hepatic and splenic margins not palpable. MUSCULOSKELETAL: Extremities without clubbing, cyanosis, or edema. No obvious deformities. NEUROLOGICAL: Awake and alert. No obvious cranial nerve deficits. Motor grossly within normal limits. Five out of 5 muscle strength in the arms and legs. Normal speech. PSYCHIATRIC: Appropriate mood and affect; insight and judgment normal. Assessment and Plan Assessment and Plan RESPIRATORY FAILURE SEPSIS ARDS JACOB/CSA PLAN VENT SUPPORT FIO2 0.5 PULM TOILET WEAN TOLERATED. CHECK ABG , CXRAY FOR TRACHEOSTOMY TODAY Orlando Perry MD May 07, 2016 16:40
--- NOTE | 2016-05-07 16:48 | HHI.HCPN ---
Reason for visit a. To assist with evaluation and management of symptoms including: Dyspnea, anxiety b. To assist medical decision maker(s) with: better understanding of current medical conditions; weighing benefits/burdens of medical treatment options; making medical treatment decisions. Subjective/Interval History Patient seen and examined in [facility] [place], [place]. No family present. Remains on T-piece. Alert, tries to talk but there is no way to understand what he is trying to say. He does answer yes/no questions appropriately. He denies pain or dyspnea. No new labs today. Afebrile. Vital signs stable. Discussed with primary nurse, and with counseling case manager (who is still working on LTAC placement). . Advance Directives Living Will: Completed, but not made available Health Care Surrogate: Copy in medical record Durable Power of Software Implementation Project Manager: Completed, but not made available Advance Directive Specifics Date completed: 2016 Health Care Surrogate(s): Names brother Farhat Leger as HCS Objective Vital Signs Date Time Temp Pulse Resp B/P Pulse Ox O2 Delivery O2 Flow Rate FiO2 05/07/16 16:00 122 05/07/16 16:00 99.2 130 37 157/68 94 05/07/16 14:00 126 05/07/16 12:00 98.2 115 24 154/70 91 05/07/16 12:00 115 05/07/16 10:00 122 05/07/16 08:00 92 T-piece 40 05/07/16 08:00 99.0 109 24 144/68 93 05/07/16 08:00 99 T-Piece 40 05/07/16 08:00 109 05/07/16 06:00 113 05/07/16 04:00 98.5 109 24 133/71 94 05/07/16 04:00 109 05/07/16 02:00 110 05/07/16 00:00 112 05/07/16 00:00 98.4 112 24 125/67 94 05/06/16 22:00 112 05/06/16 20:02 94 T-piece 6.00 40 05/06/16 20:00 98.2 116 24 144/75 99 05/06/16 20:00 116 05/06/16 20:00 99 T-Piece 40 Intake & Output 05/07/16 05/07/16 07:00 19:00 Intake Total 760 ml 533 ml Output Total 425.0 ml 1000 ml Balance 335.0 ml -467 ml IV Total 164 ml 0 ml Tube Feeding 306 ml 333 ml Other 290 ml 200 ml Output Urine Total 425 ml 1000 ml Tube Feeding Residual Discard 0 ml 0 ml # Bowel Movements 0 0 Physical Exam CONSTITUTIONAL/GENERAL: This is a morbidly obese patient, in ICU alert, T-piece TUBES/LINES/DRAINS: trach, Becker catheter, SCDs SKIN: No jaundice, rashes, or lesions.no wounds seen posteriorly. + generalized edema CARDIOVASCULAR: Regular rate and rhythm, no murmurs. Distant heart sounds. RESPIRATORY/CHEST: Symmetric, unlabored respirations via trach to mechanical vent. Decreased air movement throughout, clear, equal bilaterally. GASTROINTESTINAL: Abdomen soft, obese. Unable to determine to tenderness. Bowel sounds +, distant. MUSCULOSKELETAL: Extremities without clubbing, cyanosis. + generalized edema NEUROLOGICAL: awake and alert. Able to follow commands. Mouths words difficult to understand. Moves all extremities. PSYCHIATRIC: No obvious anxiety or psychosis . Diagnostic Tests Laboratory Laboratory Tests Test 05/06/16 05/07/16 15:06 06:01 White Blood Count 13.9 TH/MM3 12.1 TH/MM3 (4.0-11.0) (4.0-11.0) Red Blood Count 4.84 MIL/MM3 4.68 MIL/MM3 (4.50-5.90) (4.50-5.90) Hemoglobin 13.3 GM/DL 12.7 GM/DL (13.0-17.0) (13.0-17.0) Hematocrit 39.7 % 38.9 % (39.0-51.0) (39.0-51.0) Mean Corpuscular Volume 81.9 FL 83.2 FL (80.0-100.0) (80.0-100.0) Mean Corpuscular Hemoglobin 27.5 PG 27.1 PG (27.0-34.0) (27.0-34.0) Mean Corpuscular Hemoglobin 33.5 % 32.5 % Concent (32.0-36.0) (32.0-36.0) Red Cell Distribution Width 16.8 % 16.8 % (11.6-17.2) (11.6-17.2) Platelet Count 230 TH/MM3 236 TH/MM3 (150-450) (150-450) Mean Platelet Volume 8.3 FL 8.1 FL (7.0-11.0) (7.0-11.0) Sodium Level 137 MEQ/L 139 MEQ/L (136-145) (136-145) Potassium Level 3.5 MEQ/L 3.2 MEQ/L (3.5-5.1) (3.5-5.1) Chloride Level 97 MEQ/L 99 MEQ/L (98-107) (98-107) Carbon Dioxide Level 26.2 MEQ/L 28.7 MEQ/L (21.0-32.0) (21.0-32.0) Anion Gap 14 MEQ/L (5-15) 11 MEQ/L (5-15) Blood Urea Nitrogen 8 MG/DL (7-18) 9 MG/DL (7-18) Creatinine 0.39 MG/DL 0.36 MG/DL (0.60-1.30) (0.60-1.30) Estimat Glomerular Filtration 234 ML/MIN 257 ML/MIN Rate (>89) (>89) Random Glucose 176 MG/DL 117 MG/DL (74-106) (74-106) Calcium Level 8.7 MG/DL 9.3 MG/DL (8.5-10.1) (8.5-10.1) Phosphorus Level 2.9 MG/DL 2.6 MG/DL (2.5-4.9) (2.5-4.9) Magnesium Level 1.9 MG/DL 2.0 MG/DL (1.5-2.5) (1.5-2.5) Result Diagram: 05/07/16 0601 05/07/16 0601 Imaging Last Impressions Chest X-Ray 05/03/16 0600 Signed Impressions: Service Date/Time: May 04:08 - CONCLUSION: 1. Subsegmental airspace disease in the lungs. Cardiomegaly. Kyle Lorenzo MD Abdomen X-Ray 05/01/16 0000 Signed Impressions: Service Date/Time: Sunday, May 01, 2016 17:28 - CONCLUSION: No evidence of obstruction. Feeding tube overlies the distal stomach, May have to be advanced slightly to reach the duodenum. Nick Jon MD Chest CT 03/28/16 0836 Signed Impressions: Service Date/Time: Monday, March 28, 2016 09:57 - CONCLUSION: Development areas of air bronchograms and consolidation more prominent in the right and left posterior basilar segments of the lower lobes. ET tube above the chanelle. Bernard Hartman MD CT Angiography 03/24/16 1121 Signed Impressions: Service Date/Time: Thursday, March 24, 2016 12:47 - CONCLUSION: 1. There is respiratory motion artifact but no PE is identified through most of the segmental level pulmonary arteries. 2. Mildly enlarged main pulmonary artery may indicate pulmonary arterial hypertension. 3. 11 mm left lower lobe noncalcified pulmonary nodule. Suggest correlation with any prior imaging studies that could confirm longer-term stability. If none are available consider short-term followup noncontrast chest CT in approximately 3 months. Ubaldo Rodas MD Procedures 03/26intubated 03/26 left IJ central line 04/02right IJ central line . Assessment and Plan Disease Oriented Problem List: (1) Acute respiratory failure with hypoxia (2) Staphylococcus aureus pneumonia (3) Pulmonary edema (4) Hypoxia (5) JACOB (obstructive sleep apnea) (6) Pulmonary nodule, left (7) Obesity hypoventilation syndrome (8) Morbid obesity with BMI of 50.0-59.9, adult (9) Diabetes mellitus type 2 in obese Symptom Scale: (1) Anxiety 0-10 Scale: Unable to quantify (2) Dyspnea 0-10 Scale: Unable to quantify (3) Encephalopathy 0-10 Scale: Unable to quantify Pertinent Non-Medical Issues Psychosocial:Patient is , shares an apartment locally with his brother. Apparently has 2 other siblings as well as 2 adult children who live in the [place] area. Has designated his brother Farhat as healthcare surrogate. 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 Spiritual: Legal:Patient is not able to participate in decision-making due to clinical condition. Has completed designation naming his brother Farhat as [facility]. Ethical issues impacting care: Important Contacts brother Farhat Arsen [phone] ([facility]) Brother Gagandeep Arsen [phone] . Prognosis This patient was admitted for further evaluation of obesity hypoventilation syndrome; absolutely developed acute respiratory failure requiring mechanical ventilation. Has continued to require high levels of ventilator support, though other organ functions remain preserved. Possible he can recover from this however currently remains in critical condition, prognosis guarded. . Code Status: Full Code (per attending documentation ) Plan * FULL CODE - per patient's brother Farhat * DECISION-MAKING: Patient has become more alert, and may be able to participate in some decision-making with his brother now; communication is difficult. He has designated his brother Farhat as healthcare surrogate. * GOALS: Goals remain aggressive. Per prior Pal Care conversations "04/11/16: Farhat ([facility]) says he has spoken with the patient's two daughters in [place] and they want to continue aggressive care and FULL CODE status. He says he, the [facility], would lean toward de-escalation of care but he wants to honor the daughter's wishes for continued aggressive care. 04/16/16 --met with daughters as well as brother. Family seems to have overall good understanding. They remain cautiously optimistic. Goals remain aggressive. 04/27/16 -- other brother arrived, sharing that he himself had respiratory failure and a tracheostomy "and survived."" * SYMPTOMS: -- Dyspnea- managed now with chest trach/O2 -- Anxiety- risk for related to prolonged intubation, hospitalization, underlying respiratory issues; currently appears comfortable -- Encephalopathy: Multifactorial, metabolic ----> seems to be resolving * Palliative care will follow periodically.. Time Spent Total Floor Time (mins): 28 Face to Face Time (mins): 15 >50% Counseling/Coord of Care: Yes (d/w RN) Attestation To help prompt me to consider important information that might be impacting today's encounter and assessment, information from prior notes written by myself or my colleagues may have been "brought forward" into today's note. My signature on this note, however, is an attestation that I personally performed the exam, history, and/or decision-making noted today, and, unless otherwise indicated, the interactions with patient, family, and staff as well as the review of records all occurred today. I also attest that the listed assessment and stated plan reflect my best clinical judgment today based on the combination of historical information, prior notes, and today's exam/ interactions. When time spent is documented, it refers only to time spent today by the signer, or if indicated, combined time spent today by collaborating physician/nurse practitioner. Jessica Leach MD May 07, 2016 16:48
[2016-05-07] MEDS: PANTOPRAZOLE SODIUM 40 MG VIAL IV PUSH SCH (17:33)
[2016-05-08] VITALS (15 sets, daily range): BP systolic 115–180; BP diastolic 62–90; PULSE 100–114; RESP 24–35; TEMP 98.2–99.3; O2SAT 88–100
[2016-05-08] MEDS: FREE WATER G-TUBE SCH ×4 (05:48→17:11)
[2016-05-08] MEDS: ENOXAPARIN SODIUM 40 MG/0.4 ML SYRINGE SQ SCH ×2 (05:48→17:11)
[2016-05-08] MEDS: METOCLOPRAMIDE HCL 10 MG/2 ML VIAL IV PUSH SCH ×3 (05:48→21:45)
[2016-05-08] MEDS: INSULIN NovoLIN REGULAR SUPPLEMENTAL SCALE SQ SCH ×4 (05:48→17:11)
[2016-05-08] MEDS: ARTIFICIAL TEARS OPTH SOLN 15 ML BTL EACH EYE SCH ×5 (05:49→21:45)
[2016-05-08 07:03] LABS: AUTOMATED NEUTROPHIL # 9.1 TH/MM3 (1.8-7.7); BASOPHIL # 0.1 TH/MM3 (0-0.2); BASOPHIL % 0.8 % (0.0-2.0); EOSINOPHIL # 0.2 TH/MM3 (0-0.4); EOSINOPHIL % 1.4 % (0.0-4.0); LYMPH % 16.6 % (9.0-44.0); MEAN CELL VOLUME 83.1 FL (80.0-100.0); MEAN CORPUSCULAR HEMOGLOBIN 27.6 PG (27.0-34.0); MEAN CORPUSCULAR HGB CONC 33.2 % (32.0-36.0); MONO % 6.7 % (0.0-8.0); NEUT % 74.5 % (16.0-70.0); PLATELET COUNT 251 TH/MM3 (150-450); RED BLOOD COUNT 4.57 MIL/MM3 (4.50-5.90); RED CELL DISTRIBUTION WIDTH 17.1 % (11.6-17.2); WHITE BLOOD COUNT 12.3 TH/MM3 (4.0-11.0)
[2016-05-08 07:10] LABS: HEMO FLAGS AUTO DIFF
[2016-05-08] MEDS: RESP: ALBUTEROL 2.5 MG/IPRATROPIUM 0.5 MG NEB (SCH) INH ×3 (07:17→20:07)
[2016-05-08 07:39] LABS: ALT (GPT) 465 U/L (12-78); ANION GAP 8 MEQ/L (5-15); AST (GOT) 151 U/L (15-37); BICARBONATE 31.5 MEQ/L (21.0-32.0); BLOOD UREA NITROGEN 12 MG/DL (7-18); CHLORIDE 101 MEQ/L (98-107); GLOMERULAR FILTRATION RATE 266 ML/MIN (>89); MAGNESIUM 1.9 MG/DL (1.5-2.5); POTASSIUM 3.5 MEQ/L (3.5-5.1); SODIUM (NA) 140 MEQ/L (136-145)
[2016-05-08 07:41] LABS: ALKALINE PHOSPHATASE 83 U/L (45-117); TOTAL BILIRUBIN ADULT 0.6 MG/DL (0.2-1.0)
[2016-05-08] MEDS: ACETAMINOPHEN/HYDROcodone 325 MG/5 MG TAB PO SCH ×2 (07:47→21:44)
[2016-05-08] MEDS: QUEtiapine FUMARATE 25 MG TAB PO SCH ×2 (07:47→21:47)
[2016-05-08] MEDS: LACTOBACILLUS ACIDOPHILUS TAB PO SCH ×3 (07:47→17:10)
[2016-05-08] MEDS: methylPREDNISolone SOD SUCC 40 MG/1 ML VIAL IV PUSH SCH (07:47)
[2016-05-08] MEDS: BETAMETHASONE/CLOTRIMAZOLE CREAM 15 GM TOPICAL SCH ×2 (07:48→21:45)
[2016-05-08] MEDS: INSULIN DETEMIR 100 UNITS/ML VIAL SQ SCH ×2 (07:48→21:45)
[2016-05-08] MEDS: BUMETANIDE INJ 1 MG/4 ML VIAL IV PUSH SCH (07:48)
[2016-05-08] MEDS: POLYETHYLENE GLYCOL 17 GM PKG PO SCH ×2 (07:49→21:47)
[2016-05-08] MEDS: NYSTATIN 100,000 U/GM PWD 15 GM BTL TOPICAL SCH ×2 (07:49→21:45)
[2016-05-08] MEDS: SODIUM CHLORIDE 0.9% FLUSH 5 ML FLUSH IVF SCH (07:49)
[2016-05-08] MEDS: SENNOSIDES SYRUP 8.8 MG/5 ML CUP PO/TUBE SCH ×2 (07:49→21:47)
[2016-05-08] MEDS: DOCUSATE SODIUM 100 MG/10 ML UDC PO SCH ×2 (07:49→21:44)
[2016-05-08] MEDS: BENEPROTEIN POWDER 1 PACK G-TUBE SCH ×3 (07:51→17:11)
[2016-05-08] MEDS: CHLORHEXIDINE 0.12% (ORAL KIT) 15 ML CUP MT SCH ×2 (07:59→20:00)
[2016-05-08 08:06] LABS: PLATELET ESTIMATE SMEAR NORMAL (NORMAL); PLATELET MORPHOLOGY ENLARGED (NORMAL); SCAN/DIFF AUTO DIFF CONFIRMED
--- NOTE | 2016-05-08 08:08 | HHI.PR ---
Subjective Remarks Patient in bed appear in nad. Says she has some abdominal pain controlled by meds. No n/v/d/c. On t piece, sating well. Follows commands. Objective Vitals Vital Signs Date Time Temp Pulse Resp B/P Pulse Ox O2 Delivery O2 Flow Rate FiO2 05/08/16 07:18 95 T-piece 40 05/08/16 06:00 108 05/08/16 04:00 110 05/08/16 04:00 99.3 110 26 132/72 96 05/08/16 02:00 112 05/08/16 00:30 107 24 147/82 94 05/08/16 00:00 105 05/08/16 00:00 98.2 105 24 180/90 100 05/07/16 22:00 110 05/07/16 21:31 21 05/07/16 20:52 97 T-piece 6.00 05/07/16 20:00 95 T-Piece 40 05/07/16 20:00 114 05/07/16 20:00 97.9 114 31 146/83 95 05/07/16 18:00 119 05/07/16 16:00 122 05/07/16 16:00 99.2 130 37 157/68 94 05/07/16 14:00 126 05/07/16 12:00 98.2 115 24 154/70 91 05/07/16 12:00 115 05/07/16 10:00 122 I/O 05/07/16 05/07/16 05/07/16 05/08/16 05/08/16 05/08/16 07:00 15:00 23:00 07:00 15:00 23:00 Intake Total 451 ml 533 ml 2349 ml Output Total 200 ml 1000 ml 20.0 ml 700 ml Balance 251 ml -467 ml -20.0 ml 1649 ml IV Total 39 ml 0 ml 1157 ml Tube Feeding 182 ml 333 ml 672 ml Other 230 ml 200 ml 520 ml Output Urine Total 200 ml 1000 ml 700 ml Tube Feeding Residual Discard 0 ml 0 ml 20.0 ml # Bowel Movements 0 0 1 Result Diagram: 05/08/16 0635 05/08/16 0635 Imaging Last Impressions Chest X-Ray 05/03/16 0600 Signed Impressions: Service Date/Time: May 04:08 - CONCLUSION: 1. Subsegmental airspace disease in the lungs. Cardiomegaly. Kyle Lorenzo MD Abdomen X-Ray 05/01/16 0000 Signed Impressions: Service Date/Time: Sunday, May 01, 2016 17:28 - CONCLUSION: No evidence of obstruction. Feeding tube overlies the distal stomach, May have to be advanced slightly to reach the duodenum. Nick Jon MD Chest CT 03/28/16 0836 Signed Impressions: Service Date/Time: Monday, March 28, 2016 09:57 - CONCLUSION: Development areas of air bronchograms and consolidation more prominent in the right and left posterior basilar segments of the lower lobes. ET tube above the chanelle. Bernard Hartman MD CT Angiography 03/24/16 1121 Signed Impressions: Service Date/Time: Thursday, March 24, 2016 12:47 - CONCLUSION: 1. There is respiratory motion artifact but no PE is identified through most of the segmental level pulmonary arteries. 2. Mildly enlarged main pulmonary artery may indicate pulmonary arterial hypertension. 3. 11 mm left lower lobe noncalcified pulmonary nodule. Suggest correlation with any prior imaging studies that could confirm longer-term stability. If none are available consider short-term followup noncontrast chest CT in approximately 3 months. Ubaldo Rodas MD Objective Remarks GENERAL: 50-year-old morbidly obese male, chronically ill, with tracheostomy, alert and oriented interactive. SKIN: Integrity intact. Warm and dry. HEAD: Atraumatic. Normocephalic. EYES: Pupils equal round. ENT: NG tube in place. Tracheostomy in situ no drainage or erythema around the site NECK: Large neck. Trachea midline. CARDIOVASCULAR: Distant heart sounds. RRR. S1, S2. No S4 or murmurs. RESPIRATORY: Tracheostomy. Breath sounds equal bilaterally. Diminished breath sounds due to body habitus. GASTROINTESTINAL: Abdomen soft, obese, nontender. Severe central obesity ,PEG tube without erythema or drainage MUSCULOSKELETAL: Extremities with trace to 1+ nonpitting bilateral lower extremity edema. NEUROLOGICAL: Alert. Follows commands, moves extremities 4. Date of Insertion: May 03, 2016 Date of Insertion: Apr 02, 2016 Date of Removal: May 03, 2016 Line: PICC Side: Left Location: Antecubital A/P Assessment and Plan Likely SERENITY Toxic metabolic encephalopathy-resolved off Precedex infusion (3/3) Continue Star 5/325mg every 6hrs scheduled, fentanyl patch 25mcgs, and Shauna 5mg PRN, fentanyl patch 25 mcgs q 3 days-will begin to wean narcotics Seroquel 25mg BID initiated 05/04 Goal of RASS 0 Acetaminophen for fever Acute hypoxemic respiratory failure JACOB OHS History of staph aureus pneumonia/HCAP ARDS Trach collar with oxygen support to keep side>92%. Bronchodilators every 6 hours and every 2 hours as needed Consult pulmonary program for chronic respiratory failure Mild MR/TR. Monitor HR and BP keep MAP>65mmHg 2-D echo 03/26 EF 60%. No regional wall motion abnormality. Mild MR/TR. Hypokalemia Hypernatremia-resolved Hypophosphatemia Monitor renal function, I/O's, electrolytes replacement per protocol. Urine output 625cc/per 12 hours Bumex 0.5mg/day Constipation-resolved Moderate protein calorie malnutrition Nausea and vomiting On Glucerna 1.5@45ml/hr with 1 scoop whey protein 3 times a day, no residual Protonix 40mg daily On Reglan 10mg Q8, Senna and Colace twice a day.Discontinue MiraLAX twice a day and lactulose 4 times a day. PEG tube placement- 05/03 Zofran 4 mg every 6 hours when necessary Staph aureus pneumonia Possible staph bacteremia Pertinent culture 04/27 - pansensitive staph aureus 04/27 blood cultures 2 negative 04/25 - urine -no growth 04/19 - blood cultures 2 out of 4 - staph aureus 04/19 - sputum - staph aureus 04/08 - sputum - staph aureus 04/03 - sputum - staph aureus 03/30 - sputum- -staph aureus 03/27 - sputum - staph aureus 03/26 - blood - staph hominis On vancomycin 2 g IV every 12 are since 04/19 - 04/29 Azactam 04/27 through 04/29 Currently on clindamycin day #6 ID specialist following, Dr. Painter, appreciate recommendations Leukocytosis Monitor CBC/coags Monitor WBC 11.7, unchanged labs every 3 days, unless clinically indicated Diabetes mellitus SSI for glycemic control (high scale) 30 units sliding scale insulin scale insulin in the past 24 hours, Levemir insulin 70 U Q12 Morbid obesity BMI of 51.8 Weight loss encouraged. DVT, GI prophylaxis -Bilateral lower extremity SCDs. IV Protonix 40 mg daily. Lovenox 40 mg sq BID LINES: -Left upper extremity PICC line placed 04/15-05/04. Peripheral IVs x 2 Discharge plan: Case management has been consulted for discharge plan. The patient T piece trials successful for 48 hours plans for LTAC transfer. Whitney Bejarano MD May 08, 2016 08:08
[2016-05-08] MEDS: REMOVE OLD PATCH T-DERMAL SCH (09:00)
[2016-05-08] MEDS: POTASSIUM CHLOR 20 MEQ PREMIX 100 ML IV PRN ×2 (09:00→11:22)
[2016-05-08] MEDS: ARTIFICIAL TEARS OPTH OINT 3.5 APPLIC/3.5 GM TUBO EACH EYE SCH ×2 (09:00→21:44)
--- NOTE | 2016-05-08 09:31 | HHI.IDPN ---
Subjective Subjective Remarks Notes reviewed Tolerating T-piece Finished course of Clindamycin Last sputum 05/04 still with MSSA likely colonized Temps ok Not SOB S/P trach 04/30 is a 50 years old obese male with past medical history significant for undiagnosed sleep apnea, super morbid obesity, type 2 diabetes was brought to the emergency department on 03/24/16. ID following for MSSA pneumonia. Antibiotics None Clindamycin finished 3/5 Lines PICC 04/15 - removed Past Medical History Reviewed Allergies: Coded Allergies: Penicillin (Verified Allergy, Severe, Swelling, 03/24/16) Tetanus Toxoid (Verified Allergy, Unknown, Swelling, 03/24/16) Objective . Vital Signs Date Time Temp Pulse Resp B/P Pulse Ox O2 Delivery O2 Flow Rate FiO2 05/08/16 07:18 95 T-piece 40 05/08/16 06:00 108 05/08/16 04:00 110 05/08/16 04:00 99.3 110 26 132/72 96 05/08/16 02:00 112 05/08/16 00:30 107 24 147/82 94 05/08/16 00:00 105 05/08/16 00:00 98.2 105 24 180/90 100 05/07/16 22:00 110 05/07/16 21:31 21 05/07/16 20:52 97 T-piece 6.00 05/07/16 20:00 95 T-Piece 40 05/07/16 20:00 114 05/07/16 20:00 97.9 114 31 146/83 95 05/07/16 18:00 119 05/07/16 16:00 122 05/07/16 16:00 99.2 130 37 157/68 94 05/07/16 14:00 126 05/07/16 12:00 98.2 115 24 154/70 91 05/07/16 12:00 115 05/07/16 10:00 122 05/07/16 05/07/16 05/08/16 15:00 23:00 07:00 Intake Total 533 ml 2349 ml Output Total 1000 ml 20.0 ml 700 ml Balance -467 ml -20.0 ml 1649 ml IV Total 0 ml 1157 ml Tube Feeding 333 ml 672 ml Other 200 ml 520 ml Output Urine Total 1000 ml 700 ml Tube Feeding Residual Discard 0 ml 20.0 ml # Bowel Movements 0 1 . Laboratory Tests Test 05/06/16 05/07/16 05/08/16 15:06 06:01 06:35 White Blood Count 13.9 TH/MM3 12.1 TH/MM3 12.3 TH/MM3 Red Blood Count 4.84 MIL/MM3 4.68 MIL/MM3 4.57 MIL/MM3 Hemoglobin 13.3 GM/DL 12.7 GM/DL 12.6 GM/DL Hematocrit 39.7 % 38.9 % 38.0 % Mean Corpuscular Volume 81.9 FL 83.2 FL 83.1 FL Mean Corpuscular Hemoglobin 27.5 PG 27.1 PG 27.6 PG Mean Corpuscular Hemoglobin 33.5 % 32.5 % 33.2 % Concent Red Cell Distribution Width 16.8 % 16.8 % 17.1 % Platelet Count 230 TH/MM3 236 TH/MM3 251 TH/MM3 Mean Platelet Volume 8.3 FL 8.1 FL 8.4 FL Neutrophils (%) (Auto) 74.5 % Lymphocytes (%) (Auto) 16.6 % Monocytes (%) (Auto) 6.7 % Eosinophils (%) (Auto) 1.4 % Basophils (%) (Auto) 0.8 % Neutrophils # (Auto) 9.1 TH/MM3 Lymphocytes # (Auto) 2.0 TH/MM3 Monocytes # (Auto) 0.8 TH/MM3 Eosinophils # (Auto) 0.2 TH/MM3 Basophils # (Auto) 0.1 TH/MM3 CBC Comment AUTO DIFF Differential Comment AUTO DIFF CONFIRMED Platelet Estimate NORMAL Platelet Morphology Comment ENLARGED Laboratory Tests Test 05/06/16 05/07/16 05/08/16 15:06 06:01 06:35 Sodium Level 137 MEQ/L 139 MEQ/L 140 MEQ/L Potassium Level 3.5 MEQ/L 3.2 MEQ/L 3.5 MEQ/L Chloride Level 97 MEQ/L 99 MEQ/L 101 MEQ/L Carbon Dioxide Level 26.2 MEQ/L 28.7 MEQ/L 31.5 MEQ/L Anion Gap 14 MEQ/L 11 MEQ/L 8 MEQ/L Blood Urea Nitrogen 8 MG/DL 9 MG/DL 12 MG/DL Creatinine 0.39 MG/DL 0.36 MG/DL 0.35 MG/DL Estimat Glomerular Filtration 234 ML/MIN 257 ML/MIN 266 ML/MIN Rate Random Glucose 176 MG/DL 117 MG/DL 135 MG/DL Calcium Level 8.7 MG/DL 9.3 MG/DL 8.9 MG/DL Phosphorus Level 2.9 MG/DL 2.6 MG/DL 2.3 MG/DL Magnesium Level 1.9 MG/DL 2.0 MG/DL 1.9 MG/DL Total Bilirubin 0.6 MG/DL Aspartate Amino Transf 151 U/L (AST/SGOT) Alanine Aminotransferase 465 U/L (ALT/SGPT) Alkaline Phosphatase 83 U/L Total Protein 6.5 GM/DL Albumin 2.8 GM/DL Imaging Last Impressions Chest X-Ray 05/03/16 0600 Signed Impressions: Service Date/Time: May 04:08 - CONCLUSION: 1. Subsegmental airspace disease in the lungs. Cardiomegaly. Kyle Lorenzo MD Abdomen X-Ray 05/01/16 0000 Signed Impressions: Service Date/Time: Sunday, May 01, 2016 17:28 - CONCLUSION: No evidence of obstruction. Feeding tube overlies the distal stomach, May have to be advanced slightly to reach the duodenum. Nick Jon MD Chest CT 03/28/16 0836 Signed Impressions: Service Date/Time: Monday, March 28, 2016 09:57 - CONCLUSION: Development areas of air bronchograms and consolidation more prominent in the right and left posterior basilar segments of the lower lobes. ET tube above the chanelle. Bernard Hartman MD CT Angiography 03/24/16 1121 Signed Impressions: Service Date/Time: Thursday, March 24, 2016 12:47 - CONCLUSION: 1. There is respiratory motion artifact but no PE is identified through most of the segmental level pulmonary arteries. 2. Mildly enlarged main pulmonary artery may indicate pulmonary arterial hypertension. 3. 11 mm left lower lobe noncalcified pulmonary nodule. Suggest correlation with any prior imaging studies that could confirm longer-term stability. If none are available consider short-term followup noncontrast chest CT in approximately 3 months. Ubaldo Rodas MD Physical Exam GENERAL: Awake and interacting, NAD on T-piece SKIN: Warm and dry. No generalized rash HEENT: No icterus, moist mucosa NECK: Trach in place, site ok CHEST: Occ rhonchi, decreased at bases CARDIAC: regular, no murmur ABDOMEN: soft, obese, (+) BS, PEG site ok. Not tender, no guarding : Becker in place, urine looks clear MUSCULOSKELETAL: Extremities without clubbing, cyanosis. No edema NEUROLOGICAL: Awake and interacting PSYCH: Awake, cooperative LINE: PIV no evidence of infection Assessment & Plan Remarks IMPRESSION Leukocytosis, stable - afebrile Pneumonia, C/S MSSA, S/P Rx - CXR stable - S/P RX - likely colonized Repeat sputum with persistent MSSA, likely colonization JACOB Respiratory failure, S/P trach, tolerating T-piece Morbid obesity Allergy to PCN, swelling Fevers, resolved RECOMMENDATION Monitor temps Monitor progress Has been tolerating T-piece >48 hours Being eval for LTAC Stable from ID standpoint I will be available prn Please reconsult if with any new ID issue or question D/W Elisha Archer MD May 08, 2016 09:31
[2016-05-08] MEDS: fentaNYL 25 MCG/HR PATCH TD SCH (10:12)
[2016-05-08] MEDS: PANTOPRAZOLE SODIUM 40 MG VIAL IV PUSH SCH (17:11)
[2016-05-09] VITALS (15 sets, daily range): BP systolic 113–141; BP diastolic 71–80; PULSE 94–107; RESP 14–22; TEMP 97–98.5; O2SAT 90–96
[2016-05-09] MEDS: ARTIFICIAL TEARS OPTH SOLN 15 ML BTL EACH EYE SCH ×6 (02:28→23:22)
[2016-05-09] MEDS: FREE WATER G-TUBE SCH ×5 (04:59→23:24)
[2016-05-09] MEDS: METOCLOPRAMIDE HCL 10 MG/2 ML VIAL IV PUSH SCH ×3 (05:05→23:22)
[2016-05-09] MEDS: ENOXAPARIN SODIUM 40 MG/0.4 ML SYRINGE SQ SCH ×2 (05:06→17:17)
[2016-05-09] MEDS: INSULIN NovoLIN REGULAR SUPPLEMENTAL SCALE SQ SCH ×4 (05:06→17:17)
[2016-05-09 05:34] LABS: BASOPHIL # 0.1 TH/MM3 (0-0.2); BASOPHIL % 0.7 % (0.0-2.0); EOSINOPHIL # 0.1 TH/MM3 (0-0.4); EOSINOPHIL % 0.8 % (0.0-4.0); HEMATOCRIT 38.1 % (39.0-51.0); LYMPH % 17.3 % (9.0-44.0); LYMPHOCYTE # 2.1 TH/MM3 (1.0-4.8); MEAN CELL VOLUME 83.2 FL (80.0-100.0); MEAN CORPUSCULAR HEMOGLOBIN 27.6 PG (27.0-34.0); MEAN CORPUSCULAR HGB CONC 33.2 % (32.0-36.0); MONO % 5.8 % (0.0-8.0); NEUT % 75.4 % (16.0-70.0); PLATELET COUNT 269 TH/MM3 (150-450); RED BLOOD COUNT 4.58 MIL/MM3 (4.50-5.90); RED CELL DISTRIBUTION WIDTH 16.8 % (11.6-17.2)
[2016-05-09 05:51] LABS: HEMO FLAGS AUTO DIFF
[2016-05-09 06:04] LABS: BICARBONATE 34.7 MEQ/L (21.0-32.0); POTASSIUM 3.6 MEQ/L (3.5-5.1)
[2016-05-09 06:50] LABS: BASOPHILS 1 % (0-2); EOSINOPHILS 2 % (0-4); MYELOCYTES 2 % (0-0); NEUTROPHIL # MANUAL DIFF 9.2 TH/MM3 (1.8-7.7); PLATELET ESTIMATE SMEAR NORMAL (NORMAL); PLATELET MORPHOLOGY NORMAL (NORMAL); POLYS (SEG NEUTROPHILS) 75 % (16-70); SCAN/DIFF FINAL DIFF MANUAL; WBC DIFF SAMPLE 100
[2016-05-09] MEDS: CHLORHEXIDINE 0.12% (ORAL KIT) 15 ML CUP MT SCH ×2 (07:55→20:00)
[2016-05-09] MEDS: RESP: ALBUTEROL 2.5 MG/IPRATROPIUM 0.5 MG NEB (SCH) INH ×2 (08:03→13:05)
--- NOTE | 2016-05-09 08:38 | HHI.PR ---
Subjective Remarks In bed, appears in nad. Nods yes/no and trying to speak. no chest pain, no cough , fever or chills. No n/v/d/c. Tolerates Tpiece. Objective Vitals Vital Signs Date Time Temp Pulse Resp B/P Pulse Ox O2 Delivery O2 Flow Rate FiO2 05/09/16 08:04 96 T-piece 6.00 28 05/09/16 08:00 101 05/09/16 08:00 98.0 101 20 140/75 96 05/09/16 07:00 93 T-Piece 40 05/09/16 06:00 99 05/09/16 04:00 98.4 94 22 125/71 94 05/09/16 04:00 94 05/09/16 02:00 100 05/09/16 00:00 104 05/09/16 00:00 98.4 104 14 141/73 90 05/08/16 22:24 20 05/08/16 22:00 101 05/08/16 20:07 94 T-piece 5.00 40 05/08/16 20:00 100 05/08/16 20:00 98.3 100 24 140/79 93 05/08/16 19:00 93 T-Piece 40 05/08/16 18:00 107 05/08/16 16:00 112 05/08/16 16:00 99.2 112 35 128/76 97 05/08/16 14:00 114 05/08/16 12:00 99.0 107 25 131/78 93 05/08/16 12:00 107 05/08/16 10:00 109 I/O 05/08/16 05/08/16 05/08/16 05/09/16 05/09/16 05/09/16 07:00 15:00 23:00 07:00 15:00 23:00 Intake Total 2349 ml 1087 ml 692 ml 776 ml Output Total 700 ml 1300 ml 370.0 ml 150 ml 20.0 ml Balance 1649 ml -213 ml 322.0 ml 626 ml -20.0 ml IV Total 1157 ml 487 ml 331 ml 73 ml Tube Feeding 672 ml 350 ml 301 ml 303 ml Other 520 ml 250 ml 60 ml 400 ml Output Urine Total 700 ml 1300 ml 350 ml 150 ml Tube Feeding Residual Discard 0 ml 20.0 ml 20.0 ml # Bowel Movements 1 0 Result Diagram: 05/09/16 0452 05/09/16 0452 Imaging Last Impressions Chest X-Ray 05/03/16 0600 Signed Impressions: Service Date/Time: May 04:08 - CONCLUSION: 1. Subsegmental airspace disease in the lungs. Cardiomegaly. Kyle Lorenzo MD Abdomen X-Ray 05/01/16 0000 Signed Impressions: Service Date/Time: Sunday, May 01, 2016 17:28 - CONCLUSION: No evidence of obstruction. Feeding tube overlies the distal stomach, May have to be advanced slightly to reach the duodenum. Nick Jon MD Chest CT 03/28/16 0836 Signed Impressions: Service Date/Time: Monday, March 28, 2016 09:57 - CONCLUSION: Development areas of air bronchograms and consolidation more prominent in the right and left posterior basilar segments of the lower lobes. ET tube above the chanelle. Bernard Hartman MD CT Angiography 03/24/16 1121 Signed Impressions: Service Date/Time: Thursday, March 24, 2016 12:47 - CONCLUSION: 1. There is respiratory motion artifact but no PE is identified through most of the segmental level pulmonary arteries. 2. Mildly enlarged main pulmonary artery may indicate pulmonary arterial hypertension. 3. 11 mm left lower lobe noncalcified pulmonary nodule. Suggest correlation with any prior imaging studies that could confirm longer-term stability. If none are available consider short-term followup noncontrast chest CT in approximately 3 months. Ubaldo Rodas MD Objective Remarks GENERAL: 50-year-old morbidly obese male, chronically ill, with tracheostomy, alert and oriented interactive. SKIN: Integrity intact. Warm and dry. HEAD: Atraumatic. Normocephalic. EYES: Pupils equal round. ENT: NG tube in place. Tracheostomy in situ no drainage or erythema around the site NECK: Large neck. Trachea midline. CARDIOVASCULAR: Distant heart sounds. RRR. S1, S2. No S4 or murmurs. RESPIRATORY: Tracheostomy. Breath sounds equal bilaterally. Diminished breath sounds due to body habitus. GASTROINTESTINAL: Abdomen soft, obese, nontender. Severe central obesity ,PEG tube without erythema or drainage MUSCULOSKELETAL: Extremities with trace to 1+ nonpitting bilateral lower extremity edema. NEUROLOGICAL: Alert. Follows commands, moves extremities 4. Date of Insertion: May 03, 2016 Date of Insertion: Apr 02, 2016 Date of Removal: May 03, 2016 Line: PICC Side: Left Location: Antecubital A/P Assessment and Plan Likely SERENITY Toxic metabolic encephalopathy-resolved off Precedex infusion (05/04) Continue [place] 5/325mg every 6hrs scheduled, fentanyl patch 25mcgs, and Shauna 5mg PRN, fentanyl patch 25 mcgs q 3 days-will begin to wean narcotics Seroquel 25mg BID initiated 05/04 Acetaminophen for fever Acute hypoxemic respiratory failure on T piece tolerates well JACOB O[facility] History of staph aureus pneumonia/HCAP ARDS Trach collar with oxygen support to keep side>92%. Bronchodilators every 6 hours and every 2 hours as needed Consult pulmonary program for chronic respiratory failure Mild MR/TR. Monitor HR and BP keep MAP>65mmHg 2-D echo 03/26 EF 60%. No regional wall motion abnormality. Mild MR/TR. Hypokalemia Hypernatremia-resolved Hypophosphatemia Monitor renal function, I/O's, electrolytes replacement per protocol. Urine output 625cc/per 12 hours Bumex 0.5mg/day Constipation-resolved Moderate protein calorie malnutrition Nausea and vomiting On Glucerna 1.5@45ml/hr with 1 scoop whey protein 3 times a day, no residual Protonix 40mg daily On Reglan 10mg Q8, Senna and Colace twice a day.Discontinue MiraLAX twice a day and lactulose 4 times a day. PEG tube placement- 05/03 Zofran 4 mg every 6 hours when necessary Staph aureus pneumonia Possible staph bacteremia Pertinent culture 04/27 - pansensitive staph aureus 04/27 blood cultures 2 negative 04/25 - urine -no growth 04/19 - blood cultures 2 out of 4 - staph aureus 04/19 - sputum - staph aureus 04/08 - sputum - staph aureus 04/03 - sputum - staph aureus 03/30 - sputum- -staph aureus 03/27 - sputum - staph aureus 03/26 - blood - staph hominis On vancomycin 2 g IV every 12 are since 04/19 - 04/29 Azactam 04/27 through 04/29 Currently on clindamycin day #6 ID specialist following, Dr. Painter, appreciate recommendations Leukocytosis Monitor CBC/coags Monitor WBC 11.7, unchanged labs every 3 days, unless clinically indicated Diabetes mellitus SSI for glycemic control (high scale) 30 units sliding scale insulin scale insulin in the past 24 hours, Levemir insulin 70 U Q12 Morbid obesity BMI of 51.8 Weight loss encouraged. DVT, GI prophylaxis -Bilateral lower extremity SCDs. IV Protonix 40 mg daily. Lovenox 40 mg sq BID LINES: -Left upper extremity PICC line placed 04/15-05/04. Peripheral IVs x 2 Discharge plan: Case management has been consulted for discharge plan. The patient T piece trials successful for 48 hours plans for LTAC transfer. Whitney Bejarano MD May 09, 2016 08:38
[2016-05-09] MEDS ORDERED: ENOX40P SQ (08:42)
[2016-05-09] MEDS ORDERED: ARTI3.5O EACH EYE (08:42)
[2016-05-09] MEDS: LACTOBACILLUS ACIDOPHILUS TAB PO SCH ×3 (09:00→17:16)
[2016-05-09] MEDS: ARTIFICIAL TEARS OPTH OINT 3.5 APPLIC/3.5 GM TUBO EACH EYE SCH ×2 (09:00→21:00)
[2016-05-09] MEDS: DOCUSATE SODIUM 100 MG/10 ML UDC PO SCH ×2 (09:00→21:00)
[2016-05-09] MEDS: INSULIN DETEMIR 100 UNITS/ML VIAL SQ SCH ×2 (09:00→23:20)
[2016-05-09] MEDS: BENEPROTEIN POWDER 1 PACK G-TUBE SCH ×3 (09:00→18:00)
[2016-05-09] MEDS: NYSTATIN 100,000 U/GM PWD 15 GM BTL TOPICAL SCH ×2 (09:00→23:23)
[2016-05-09] MEDS: POLYETHYLENE GLYCOL 17 GM PKG PO SCH ×2 (09:00→21:00)
[2016-05-09] MEDS: BETAMETHASONE/CLOTRIMAZOLE CREAM 15 GM TOPICAL SCH ×2 (09:00→23:19)
[2016-05-09] MEDS: SENNOSIDES SYRUP 8.8 MG/5 ML CUP PO/TUBE SCH ×2 (09:00→21:00)
[2016-05-09] MEDS: ACETAMINOPHEN/HYDROcodone 325 MG/5 MG TAB PO SCH ×2 (10:06→23:19)
[2016-05-09] MEDS: methylPREDNISolone SOD SUCC 40 MG/1 ML VIAL IV PUSH SCH (10:07)
[2016-05-09] MEDS: QUEtiapine FUMARATE 25 MG TAB PO SCH ×2 (10:07→23:20)
[2016-05-09] MEDS: BUMETANIDE INJ 1 MG/4 ML VIAL IV PUSH SCH (10:07)
[2016-05-09] MEDS: SODIUM CHLORIDE 0.9% FLUSH 5 ML FLUSH IVF SCH (10:08)
--- NOTE | 2016-05-09 15:01 | HHI.GIFU ---
Subjective Remarks Reconsulted for elevated LFTs. Resting in bed. Mild tenderness at PEG tube site, but no RUQ tenderness. Denies any hx of liver disease or ETOH abuse. No n /v. Objective Vitals I&O Vital Signs Date Time Temp Pulse Resp B/P Pulse Ox O2 Delivery O2 Flow Rate FiO2 05/09/16 11:06 18 05/09/16 10:00 97 05/09/16 08:04 96 T-piece 6.00 28 05/09/16 08:00 101 05/09/16 08:00 98.0 101 20 140/75 96 05/09/16 07:00 93 T-Piece 40 05/09/16 06:00 99 05/09/16 04:00 98.4 94 22 125/71 94 05/09/16 04:00 94 05/09/16 02:00 100 05/09/16 00:00 104 05/09/16 00:00 98.4 104 14 141/73 90 05/08/16 22:00 101 05/08/16 20:07 94 T-piece 5.00 40 05/08/16 20:00 100 05/08/16 20:00 98.3 100 24 140/79 93 05/08/16 19:00 93 T-Piece 40 05/08/16 18:00 107 05/08/16 16:00 112 05/08/16 16:00 99.2 112 35 128/76 97 I/O 05/08/16 05/08/16 05/08/16 05/09/16 05/09/16 05/09/16 07:00 15:00 23:00 07:00 15:00 23:00 Intake Total 2349 ml 1087 ml 692 ml 776 ml Output Total 700 ml 1300 ml 370.0 ml 150 ml 20.0 ml Balance 1649 ml -213 ml 322.0 ml 626 ml -20.0 ml IV Total 1157 ml 487 ml 331 ml 73 ml Tube Feeding 672 ml 350 ml 301 ml 303 ml Other 520 ml 250 ml 60 ml 400 ml Output Urine Total 700 ml 1300 ml 350 ml 150 ml Tube Feeding Residual Discard 0 ml 20.0 ml 20.0 ml # Bowel Movements 1 0 Laboratory Laboratory Tests Test 05/09/16 04:52 White Blood Count 12.0 Red Blood Count 4.58 Hemoglobin 12.6 Hematocrit 38.1 Mean Corpuscular Volume 83.2 Mean Corpuscular Hemoglobin 27.6 Mean Corpuscular Hemoglobin 33.2 Concent Red Cell Distribution Width 16.8 Platelet Count 269 Mean Platelet Volume 8.3 Neutrophils (%) (Auto) 75.4 Lymphocytes (%) (Auto) 17.3 Monocytes (%) (Auto) 5.8 Eosinophils (%) (Auto) 0.8 Basophils (%) (Auto) 0.7 Neutrophils # (Auto) 9.0 Lymphocytes # (Auto) 2.1 Monocytes # (Auto) 0.7 Eosinophils # (Auto) 0.1 Basophils # (Auto) 0.1 CBC Comment AUTO DIFF Differential Total Cells 100 Counted Neutrophils % (Manual) 75 Lymphocytes % 14 Monocytes % 6 Eosinophils % 2 Basophils % 1 Neutrophils # (Manual) 9.2 Myelocytes 2 Differential Comment FINAL DIFF MANUAL Platelet Estimate NORMAL Platelet Morphology Comment NORMAL Red Cell Morphology Comment NORMAL Sodium Level 141 Potassium Level 3.6 Chloride Level 100 Carbon Dioxide Level 34.7 Anion Gap 6 Blood Urea Nitrogen 13 Creatinine 0.42 Estimat Glomerular Filtration 215 Rate Random Glucose 110 Calcium Level 9.3 Phosphorus Level 3.9 Imaging Last Impressions Chest X-Ray 05/03/16 0600 Signed Impressions: Service Date/Time: May 04:08 - CONCLUSION: 1. Subsegmental airspace disease in the lungs. Cardiomegaly. Kyle Lorenzo MD Abdomen X-Ray 05/01/16 0000 Signed Impressions: Service Date/Time: Sunday, May 01, 2016 17:28 - CONCLUSION: No evidence of obstruction. Feeding tube overlies the distal stomach, May have to be advanced slightly to reach the duodenum. Nick Jon MD Chest CT 03/28/16 0836 Signed Impressions: Service Date/Time: Monday, March 28, 2016 09:57 - CONCLUSION: Development areas of air bronchograms and consolidation more prominent in the right and left posterior basilar segments of the lower lobes. ET tube above the chanelle. Bernard Hartman MD CT Angiography 03/24/16 1121 Signed Impressions: Service Date/Time: Thursday, March 24, 2016 12:47 - CONCLUSION: 1. There is respiratory motion artifact but no PE is identified through most of the segmental level pulmonary arteries. 2. Mildly enlarged main pulmonary artery may indicate pulmonary arterial hypertension. 3. 11 mm left lower lobe noncalcified pulmonary nodule. Suggest correlation with any prior imaging studies that could confirm longer-term stability. If none are available consider short-term followup noncontrast chest CT in approximately 3 months. Ubaldo Rodas MD Physical Exam HEENT: Normocephalic; atraumatic; no jaundice. NECK: trach in place CHEST: Coarse BS bilaterally, decreased at bases CARDIAC: Regular rate and rhythm ABDOMEN: soft, obese, nondistended, nontender; bowel sounds are present in all four quadrants. PEG tube EXTREMITIES: Generalized edema. SKIN: Normal; no rash; no jaundice. SUSTAINABLE AGRICULTURE FACULTY: Alert Assessment and Plan Plan ASSESSMENT: - Elevated LFTs. No imaging of liver/gb. Denies hx of liver disease or ETOH abuse. Pt had normal LFTs on admission. These have since fluctuated and now with elevated transaminases. T> Bili 0.6, AST 151, ALT 465, Alk Phosph 83. He does not have RUQ tenderness. He is morbidly obese and likely has some degree of fatty liver. Will get liver US and order liver workup. Monitor LFTs. - Dysphagia/ENT- S/P EGD/PEG on (05/03/16). Tolerating TF. Plan: - TF per dietary recommendation - RUQ Liver US - AFP - YUN - ASMA - AMA - Ceruloplasmin - Alpha 1 Antitrypsin - Ferritin - Iron saturation - Monitor LFTs - Supportive care - Patient seen and examined by Dr Munson and myself and this note is written on his behalf. Mayra Garcia May 09, 2016 15:01
[2016-05-09 16:23] LABS: FERRITIN 741 NG/ML (26-388); TRANSFERRIN IRON PROFILE 165 MG/DL (200-360)
[2016-05-09] MEDS: PANTOPRAZOLE SODIUM 40 MG VIAL IV PUSH SCH (17:16)
[2016-05-09] MEDS: oxyCODONE HCL ORAL CONC 20 MG/ML SYRINGE PO PRN (17:16)
--- NOTE | 2016-05-09 18:19 | HHI.PR ---
Subjective Remarks ON THE VENT SEDATED FIO2 AT 50% less sedation alert, nods yes ,no Objective Vital Signs Date Time Temp Pulse Resp B/P Pulse Ox O2 Delivery O2 Flow Rate FiO2 05/09/16 18:08 20 05/09/16 16:00 101 05/09/16 16:00 98.2 101 20 120/72 95 05/09/16 14:00 97 05/09/16 12:00 97.0 97 18 113/75 93 05/09/16 12:00 98 05/09/16 11:06 18 05/09/16 10:00 97 05/09/16 08:04 96 T-piece 6.00 28 05/09/16 08:00 101 05/09/16 08:00 98.0 101 20 140/75 96 05/09/16 07:00 93 T-Piece 40 05/09/16 06:00 99 05/09/16 04:00 98.4 94 22 125/71 94 05/09/16 04:00 94 05/09/16 02:00 100 05/09/16 00:00 104 05/09/16 00:00 98.4 104 14 141/73 90 05/08/16 22:00 101 05/08/16 20:07 94 T-piece 5.00 40 05/08/16 20:00 100 05/08/16 20:00 98.3 100 24 140/79 93 05/08/16 19:00 93 T-Piece 40 I/O 05/08/16 05/08/16 05/08/16 05/09/16 05/09/16 05/09/16 07:00 15:00 23:00 07:00 15:00 23:00 Intake Total 2349 ml 1087 ml 692 ml 776 ml 570 ml Output Total 700 ml 1300 ml 370.0 ml 150 ml 720.0 ml Balance 1649 ml -213 ml 322.0 ml 626 ml -150.0 ml Intake Oral 0 ml IV Total 1157 ml 487 ml 331 ml 73 ml 70 ml Tube Feeding 672 ml 350 ml 301 ml 303 ml 400 ml Other 520 ml 250 ml 60 ml 400 ml 100 ml Output Urine Total 700 ml 1300 ml 350 ml 150 ml 700 ml Tube Feeding Residual Discard 0 ml 20.0 ml 20.0 ml # Bowel Movements 1 0 1 Result Diagram: 05/09/16 0452 05/09/16 0452 Objective Remarks GENERAL: SKIN: Warm and dry. HEAD: Atraumatic. Normocephalic. EYES: Pupils equal and round. No scleral icterus. No injection or drainage. ENT: No nasal bleeding or discharge. Mucous membranes pink and moist. NECK: Trachea midline. No JVD. CARDIOVASCULAR: Regular rate and rhythm. RESPIRATORY: No accessory muscle use. Clear to auscultation. Breath sounds equal bilaterally. GASTROINTESTINAL: Abdomen soft, non-tender, nondistended. Hepatic and splenic margins not palpable. MUSCULOSKELETAL: Extremities without clubbing, cyanosis, or edema. No obvious deformities. NEUROLOGICAL: Awake and alert. No obvious cranial nerve deficits. Motor grossly within normal limits. Five out of 5 muscle strength in the arms and legs. Normal speech. PSYCHIATRIC: Appropriate mood and affect; insight and judgment normal. Assessment and Plan Assessment and Plan RESPIRATORY FAILURE SEPSIS ARDS JACOB/CSA PLAN VENT SUPPORT FIO2 0.5 PULM TOILET WEAN TOLERATED. CHECK ABG , CXRAY FOR TRACHEOSTOMY TODAY Orlando Perry MD May 09, 2016 18:19
[2016-05-09] MEDS: RESP: ALBUTEROL 2.5 MG/IPRATROPIUM 0.5 MG NEB (PRN) NEB ×2 (21:48→23:46)
[2016-05-10] VITALS (19 sets, daily range): BP systolic 110–138; BP diastolic 62–83; PULSE 93–117; RESP 21–25; TEMP 97.2–98.9; O2SAT 87–99
--- NOTE | 2016-05-10 00:46 | RADRPT ---
EXAM DATE/TIME: 05/09/2016 22:28 [facility] COMPARISON: No previous studies available for comparison. INDICATIONS : Increased lab values. MEDICAL HISTORY : Dyspnea. Chronic back problems. Diabetes. SURGICAL HISTORY : Right carpel tunnel release. ENCOUNTER: Initial ACUITY: 1 day PAIN SCORE: 0/10 LOCATION: Bilateral upper quadrant MEASUREMENTS: LIVER: 20.5 cm length COMMON DUCT: 6 mm RIGHT KIDNEY: 11.4 x 6.0 x 6.4 cm SPLEEN: 14.5 cm length FINDINGS: LIVER: Increased echotexture without focal lesion or ductal dilatation. COMMON DUCT: No intraluminal mass or stone visualized. GALLBLADDER: Multiple echogenic luminal foci appear to be adherent to one of the arcos and may represent stones or tumefactive sludge. PANCREAS: Obscured due to overlying bowel gas and patient's body habitus. RIGHT KIDNEY: No hydronephrosis, stone or mass. SPLEEN: No focal lesion. CONCLUSION: 1. Enlarged, fatty liver. 2. Small stones or tumefactive sludge adherent to one of the gallbladder arcos. 3. Splenomegaly. 4. Pancreas is obscured by overlying bowel gas and patient's body habitus. Arthur Kennedy MD on May 10, 2016 at 0:41 Board Certified Radiologist. This report was verified electronically.
[2016-05-10] MEDS: RESP: ALBUTEROL 2.5 MG/IPRATROPIUM 0.5 MG NEB (PRN) NEB ×6 (02:59→23:28)
--- NOTE | 2016-05-10 03:14 | RADRPT ---
EXAM DATE/TIME: 05/10/2016 02:31 [facility] COMPARISON: CHEST SINGLE AP, May 03, 2016, 4:08. INDICATIONS : Shortness of breath. MEDICAL HISTORY : Diabetes mellitus type II. SURGICAL HISTORY : Tracheostomy ENCOUNTER: Subsequent ACUITY: 1 month PAIN SCORE: Non-responsive. LOCATION: Bilateral chest FINDINGS: A single view of the chest demonstrates stable hypoinflation. Mild left perihilar atelectatic changes . Lungs are otherwise grossly clear. Heart size is prominent but appears to be well compensated. Trac heostomy tube is stable in position. Osseous structures are intact left upper extremity PICC line and Dobbhoff feeding tube have been removed. CONCLUSION: 1. Hypoinflation with left perihilar atelectasis. Lungs otherwise appear clear. 2. Compensated cardiomegaly. Arthur Kennedy MD on May 10, 2016 at 3:11 Board Certified Radiologist. This report was verified electronically.
[2016-05-10] MEDS: ARTIFICIAL TEARS OPTH SOLN 15 ML BTL EACH EYE SCH ×6 (05:51→21:19)
[2016-05-10] MEDS: METOCLOPRAMIDE HCL 10 MG/2 ML VIAL IV PUSH SCH ×3 (05:52→21:17)
[2016-05-10] MEDS: FREE WATER G-TUBE SCH ×3 (05:52→17:42)
[2016-05-10] MEDS: ENOXAPARIN SODIUM 40 MG/0.4 ML SYRINGE SQ SCH ×2 (05:52→17:43)
[2016-05-10] MEDS: INSULIN NovoLIN REGULAR SUPPLEMENTAL SCALE SQ SCH ×4 (05:53→17:44)
[2016-05-10 06:24] LABS: AUTOMATED NEUTROPHIL # 8.3 TH/MM3 (1.8-7.7); BASOPHIL # 0.1 TH/MM3 (0-0.2); BASOPHIL % 0.6 % (0.0-2.0); EOSINOPHIL # 0.1 TH/MM3 (0-0.4); EOSINOPHIL % 0.7 % (0.0-4.0); HEMATOCRIT 37.4 % (39.0-51.0); LYMPH % 19.5 % (9.0-44.0); LYMPHOCYTE # 2.2 TH/MM3 (1.0-4.8); MEAN CELL VOLUME 83.2 FL (80.0-100.0); MEAN CORPUSCULAR HEMOGLOBIN 27.8 PG (27.0-34.0); MEAN CORPUSCULAR HGB CONC 33.5 % (32.0-36.0); MONO % 5.5 % (0.0-8.0); NEUT % 73.7 % (16.0-70.0); PLATELET COUNT 256 TH/MM3 (150-450); RED CELL DISTRIBUTION WIDTH 16.6 % (11.6-17.2); WHITE BLOOD COUNT 11.3 TH/MM3 (4.0-11.0)
[2016-05-10 06:26] LABS: HEMO FLAGS AUTO DIFF
[2016-05-10 06:53] LABS: ALKALINE PHOSPHATASE 80 U/L (45-117); ALT (GPT) 600 U/L (12-78); ANION GAP 11 MEQ/L (5-15); AST (GOT) 228 U/L (15-37); BLOOD UREA NITROGEN 11 MG/DL (7-18); CHLORIDE 97 MEQ/L (98-107); GLOMERULAR FILTRATION RATE 221 ML/MIN (>89); POTASSIUM 3.4 MEQ/L (3.5-5.1); SODIUM (NA) 140 MEQ/L (136-145); TOTAL BILIRUBIN ADULT 0.5 MG/DL (0.2-1.0)
[2016-05-10 08:23] LABS: BANDS 2 % (0-6); METAMYELOCYTES 1 % (0-1); MYELOCYTES 2 % (0-0); POLYS (SEG NEUTROPHILS) 75 % (16-70); WBC DIFF SAMPLE 100
[2016-05-10 08:24] LABS: PLATELET ESTIMATE SMEAR NORMAL (NORMAL); PLATELET MORPHOLOGY NORMAL (NORMAL); SCAN/DIFF FINAL DIFF MANUAL
[2016-05-10] MEDS: BUMETANIDE INJ 1 MG/4 ML VIAL IV PUSH SCH (08:43)
[2016-05-10] MEDS: methylPREDNISolone SOD SUCC 40 MG/1 ML VIAL IV PUSH SCH (08:43)
[2016-05-10] MEDS: DOCUSATE SODIUM 100 MG/10 ML UDC PO SCH ×2 (08:44→21:17)
[2016-05-10] MEDS: QUEtiapine FUMARATE 25 MG TAB PO SCH ×2 (08:44→21:17)
[2016-05-10] MEDS: ACETAMINOPHEN/HYDROcodone 325 MG/5 MG TAB PO SCH ×2 (08:44→21:18)
[2016-05-10] MEDS: SODIUM CHLORIDE 0.9% FLUSH 5 ML FLUSH IVF SCH (08:44)
[2016-05-10] MEDS: LACTOBACILLUS ACIDOPHILUS TAB PO SCH ×3 (08:44→17:43)
[2016-05-10] MEDS: CHLORHEXIDINE 0.12% (ORAL KIT) 15 ML CUP MT SCH ×2 (08:47→20:00)
[2016-05-10] MEDS: SENNOSIDES SYRUP 8.8 MG/5 ML CUP PO/TUBE SCH ×2 (08:48→21:17)
[2016-05-10] MEDS: POLYETHYLENE GLYCOL 17 GM PKG PO SCH ×2 (08:48→21:00)
[2016-05-10] MEDS: INSULIN DETEMIR 100 UNITS/ML VIAL SQ SCH ×2 (08:49→21:25)
[2016-05-10] MEDS: BETAMETHASONE/CLOTRIMAZOLE CREAM 15 GM TOPICAL SCH ×2 (09:19→21:19)
[2016-05-10] MEDS: NYSTATIN 100,000 U/GM PWD 15 GM BTL TOPICAL SCH ×2 (09:20→21:19)
[2016-05-10] MEDS: ARTIFICIAL TEARS OPTH OINT 3.5 APPLIC/3.5 GM TUBO EACH EYE SCH ×2 (09:20→21:00)
--- NOTE | 2016-05-10 09:46 | HHI.GIFU ---
Subjective Remarks Resting in bed. Denies nausea/vomiting. Denies abdominal pain. No distress. (Mayra Garcia) Objective Vitals I&O Vital Signs Date Time Temp Pulse Resp B/P Pulse Ox O2 Delivery O2 Flow Rate FiO2 05/10/16 09:03 96 40 05/10/16 09:03 96 BiPAP 40 05/10/16 07:00 96 Bi-Pap 40 05/10/16 06:00 115 05/10/16 04:09 96 40 05/10/16 04:00 97.9 117 25 120/73 92 05/10/16 04:00 117 05/10/16 02:25 99 40 05/10/16 02:00 105 05/10/16 00:19 20 05/10/16 00:00 98.1 110 25 110/62 87 05/10/16 00:00 110 05/09/16 23:49 93 T-piece 5.00 50 05/09/16 22:00 107 05/09/16 21:48 94 T-piece 6.00 40 05/09/16 20:00 98.5 100 22 132/80 90 05/09/16 20:00 100 05/09/16 19:00 87 T-Piece 40 05/09/16 18:08 20 05/09/16 18:00 97 05/09/16 16:00 101 05/09/16 16:00 98.2 101 20 120/72 95 05/09/16 14:00 97 05/09/16 12:00 97.0 97 18 113/75 93 05/09/16 12:00 98 05/09/16 10:00 97 I/O 05/09/16 05/09/16 05/09/16 05/10/16 05/10/16 05/10/16 07:00 15:00 23:00 07:00 15:00 23:00 Intake Total 776 ml 570 ml 117 ml 1201 ml Output Total 150 ml 720.0 ml 350 ml 150 ml Balance 626 ml -150.0 ml -233 ml 1051 ml Intake Oral 0 ml 0 ml 0 ml IV Total 73 ml 70 ml 117 ml 400 ml Tube Feeding 303 ml 400 ml 0 ml 601 ml Other 400 ml 100 ml 200 ml Output Urine Total 150 ml 700 ml 350 ml 150 ml Tube Feeding Residual Discard 20.0 ml # Bowel Movements 1 1 Laboratory Laboratory Tests Test 05/10/16 04:29 White Blood Count 11.3 Red Blood Count 4.50 Hemoglobin 12.5 Hematocrit 37.4 Mean Corpuscular Volume 83.2 Mean Corpuscular Hemoglobin 27.8 Mean Corpuscular Hemoglobin 33.5 Concent Red Cell Distribution Width 16.6 Platelet Count 256 Mean Platelet Volume 8.6 Neutrophils (%) (Auto) 73.7 Lymphocytes (%) (Auto) 19.5 Monocytes (%) (Auto) 5.5 Eosinophils (%) (Auto) 0.7 Basophils (%) (Auto) 0.6 Neutrophils # (Auto) 8.3 Lymphocytes # (Auto) 2.2 Monocytes # (Auto) 0.6 Eosinophils # (Auto) 0.1 Basophils # (Auto) 0.1 CBC Comment AUTO DIFF Differential Total Cells 100 Counted Neutrophils % (Manual) 75 Band Neutrophils % 2 Lymphocytes % 14 Monocytes % 6 Neutrophils # (Manual) 9.0 Metamyelocytes 1 Myelocytes 2 Differential Comment FINAL DIFF MANUAL Platelet Estimate NORMAL Platelet Morphology Comment NORMAL Sodium Level 140 Potassium Level 3.4 Chloride Level 97 Carbon Dioxide Level 32.0 Anion Gap 11 Blood Urea Nitrogen 11 Creatinine 0.41 Estimat Glomerular Filtration 221 Rate Random Glucose 108 Calcium Level 9.0 Magnesium Level 2.0 Total Bilirubin 0.5 Aspartate Amino Transf 228 (AST/SGOT) Alanine Aminotransferase 600 (ALT/SGPT) Alkaline Phosphatase 80 Total Protein 6.8 Albumin 2.9 Tumor Marker Alpha Fetoprotein 1.3 Imaging Last Impressions Chest X-Ray 05/10/16 0000 Signed Impressions: Service Date/Time: May 02:31 - CONCLUSION: 1. Hypoinflation with left perihilar atelectasis. Lungs otherwise appear clear. 2. Compensated cardiomegaly. Arthur Kennedy MD Liver Ultrasound 05/09/16 0000 Signed Impressions: Service Date/Time: Monday, May 09, 2016 22:28 - CONCLUSION: 1. Enlarged, fatty liver. 2. Small stones or tumefactive sludge adherent to one of the gallbladder arcos. 3. Splenomegaly. 4. Pancreas is obscured by overlying bowel gas and patient's body habitus. Arthur Kennedy MD Abdomen X-Ray 05/01/16 0000 Signed Impressions: Service Date/Time: Sunday, May 01, 2016 17:28 - CONCLUSION: No evidence of obstruction. Feeding tube overlies the distal stomach, May have to be advanced slightly to reach the duodenum. Nick Jon MD Chest CT 03/28/16 0836 Signed Impressions: Service Date/Time: Monday, March 28, 2016 09:57 - CONCLUSION: Development areas of air bronchograms and consolidation more prominent in the right and left posterior basilar segments of the lower lobes. ET tube above the chanelle. Bernard Hartman MD CT Angiography 03/24/16 1121 Signed Impressions: Service Date/Time: Thursday, March 24, 2016 12:47 - CONCLUSION: 1. There is respiratory motion artifact but no PE is identified through most of the segmental level pulmonary arteries. 2. Mildly enlarged main pulmonary artery may indicate pulmonary arterial hypertension. 3. 11 mm left lower lobe noncalcified pulmonary nodule. Suggest correlation with any prior imaging studies that could confirm longer-term stability. If none are available consider short-term followup noncontrast chest CT in approximately 3 months. Ubaldo Rodas MD Physical Exam HEENT: Normocephalic; atraumatic; no jaundice. NECK: trach in place CHEST: Coarse BS bilaterally, decreased at bases. T Bar CARDIAC: Regular rate and rhythm ABDOMEN: soft, obese, nondistended, nontender; bowel sounds are present in all four quadrants. PEG tube EXTREMITIES: Generalized edema. SKIN: Normal; no rash; no jaundice. GR[employer]W LEADER: Alert (Mayra Garcia) Assessment and Plan Plan ASSESSMENT: - Elevated LFTs. No imaging of liver/gb. Denies hx of liver disease or ETOH abuse. Pt had normal LFTs on admission. These have since fluctuated and now with elevated transaminases. He does not have RUQ tenderness. He is morbidly obese. Liver Ultrasound (05/09/16)----> 1. Enlarged, fatty liver. 2. Small stones or tumefactive sludge adherent to one of the gallbladder arcos. 3. Splenomegaly. 4. Pancreas is obscured by overlying bowel gas and patient's body habitus. Ferritin 741. Iron saturation 34.6. AFP 1.3. Ceruloplasmin pending, Alpha 1 Antitrypsin pending, YUN pending, ASMA pending, AMA pending, Hepatitis pending. LFTs T. Bili 0.5, AST 228, ALT 600, Alk Phosph 80. - Dysphagia/ENT- S/P EGD/PEG on (05/03/16). Tolerating TF. Plan: - TF per dietary recommendation - Await YUN, ASMA, AMA - Await Ceruloplasmin, Alpha 1 Antitrypsin - Monitor LFTs - Supportive care - Patient seen and examined by Dr Munson and myself and this note is written on his behalf. (Mayra Garcia) Physician Comments patient was seen and examined, agree with above note. (Lisa Munson MD) Mayra Garcia May 10, 2016 09:46 iLsa Munson MD May 10, 2016 17:55
--- NOTE | 2016-05-10 11:35 | HHI.PR ---
Subjective Remarks Patient sleepy. No complaints. Objective Vitals Vital Signs Date Time Temp Pulse Resp B/P Pulse Ox O2 Delivery O2 Flow Rate FiO2 05/10/16 10:00 108 05/10/16 09:49 25 05/10/16 09:03 96 40 05/10/16 09:03 96 BiPAP 40 05/10/16 08:00 98.6 96 24 134/75 93 05/10/16 08:00 96 05/10/16 07:00 96 Bi-Pap 40 05/10/16 06:00 115 05/10/16 04:09 96 40 05/10/16 04:00 97.9 117 25 120/73 92 05/10/16 04:00 117 05/10/16 02:25 99 40 05/10/16 02:00 105 05/10/16 00:00 98.1 110 25 110/62 87 05/10/16 00:00 110 05/09/16 23:49 93 T-piece 5.00 50 05/09/16 22:00 107 05/09/16 21:48 94 T-piece 6.00 40 05/09/16 20:00 98.5 100 22 132/80 90 05/09/16 20:00 100 05/09/16 19:00 87 T-Piece 40 05/09/16 18:08 20 05/09/16 18:00 97 05/09/16 16:00 101 05/09/16 16:00 98.2 101 20 120/72 95 05/09/16 14:00 97 05/09/16 12:00 97.0 97 18 113/75 93 05/09/16 12:00 98 I/O 05/09/16 05/09/16 05/09/16 05/10/16 05/10/16 05/10/16 07:00 15:00 23:00 07:00 15:00 23:00 Intake Total 776 ml 570 ml 117 ml 1201 ml Output Total 150 ml 720.0 ml 350 ml 150 ml Balance 626 ml -150.0 ml -233 ml 1051 ml Intake Oral 0 ml 0 ml 0 ml IV Total 73 ml 70 ml 117 ml 400 ml Tube Feeding 303 ml 400 ml 0 ml 601 ml Other 400 ml 100 ml 200 ml Output Urine Total 150 ml 700 ml 350 ml 150 ml Tube Feeding Residual Discard 20.0 ml # Bowel Movements 1 1 Result Diagram: 05/10/16 0429 05/10/16 0429 Imaging Last Impressions Chest X-Ray 05/10/16 0000 Signed Impressions: Service Date/Time: May 02:31 - CONCLUSION: 1. Hypoinflation with left perihilar atelectasis. Lungs otherwise appear clear. 2. Compensated cardiomegaly. Arthur Kennedy MD Liver Ultrasound 05/09/16 0000 Signed Impressions: Service Date/Time: Monday, May 09, 2016 22:28 - CONCLUSION: 1. Enlarged, fatty liver. 2. Small stones or tumefactive sludge adherent to one of the gallbladder arcos. 3. Splenomegaly. 4. Pancreas is obscured by overlying bowel gas and patient's body habitus. Arthur Kennedy MD Abdomen X-Ray 05/01/16 0000 Signed Impressions: Service Date/Time: Sunday, May 01, 2016 17:28 - CONCLUSION: No evidence of obstruction. Feeding tube overlies the distal stomach, May have to be advanced slightly to reach the duodenum. Nick Jon MD Chest CT 03/28/16 0836 Signed Impressions: Service Date/Time: Monday, March 28, 2016 09:57 - CONCLUSION: Development areas of air bronchograms and consolidation more prominent in the right and left posterior basilar segments of the lower lobes. ET tube above the chanelle. Bernard Hartman MD CT Angiography 03/24/16 1121 Signed Impressions: Service Date/Time: Thursday, March 24, 2016 12:47 - CONCLUSION: 1. There is respiratory motion artifact but no PE is identified through most of the segmental level pulmonary arteries. 2. Mildly enlarged main pulmonary artery may indicate pulmonary arterial hypertension. 3. 11 mm left lower lobe noncalcified pulmonary nodule. Suggest correlation with any prior imaging studies that could confirm longer-term stability. If none are available consider short-term followup noncontrast chest CT in approximately 3 months. Ubaldo Rodas MD Objective Remarks GENERAL: 50-year-old morbidly obese male, chronically ill, with tracheostomy, alert and oriented interactive. SKIN: Integrity intact. Warm and dry. HEAD: Atraumatic. Normocephalic. EYES: Pupils equal round. ENT: NG tube in place. Tracheostomy in situ no drainage or erythema around the site NECK: Large neck. Trachea midline. CARDIOVASCULAR: Distant heart sounds. RRR. S1, S2. No S4 or murmurs. RESPIRATORY: Tracheostomy. Breath sounds equal bilaterally. Diminished breath sounds due to body habitus. GASTROINTESTINAL: Abdomen soft, obese, nontender. Severe central obesity ,PEG tube without erythema or drainage MUSCULOSKELETAL: Extremities with trace to 1+ nonpitting bilateral lower extremity edema. NEUROLOGICAL: Alert. Follows commands, moves extremities 4. Date of Insertion: May 03, 2016 Date of Insertion: Apr 02, 2016 Date of Removal: May 03, 2016 Line: PICC Side: Left Location: Antecubital A/P Assessment and Plan Likely SERENITY Toxic metabolic encephalopathy-resolved off Precedex infusion (05/04) Continue [place] 5/325mg every 6hrs scheduled, fentanyl patch 25mcgs, and Shauna 5mg PRN, fentanyl patch 25 mcgs q 3 days-will begin to wean narcotics Seroquel 25mg BID initiated 05/04 Acetaminophen for fever Acute hypoxemic respiratory failure on T piece tolerates well JACOB OHS History of staph aureus pneumonia/HCAP ARDS Trach collar with oxygen support to keep side>92%. Bronchodilators every 6 hours and every 2 hours as needed Consult pulmonary program for chronic respiratory failure Mild MR/TR. Monitor HR and BP keep MAP>65mmHg 2-D echo 03/26 EF 60%. No regional wall motion abnormality. Mild MR/TR. Hypokalemia Hypernatremia-resolved Hypophosphatemia Monitor renal function, I/O's, electrolytes replacement per protocol. Urine output 625cc/per 12 hours Bumex 0.5mg/day Constipation-resolved Moderate protein calorie malnutrition Nausea and vomiting On Glucerna 1.5@45ml/hr with 1 scoop whey protein 3 times a day, no residual Protonix 40mg daily On Reglan 10mg Q8, Senna and Colace twice a day.Discontinue MiraLAX twice a day and lactulose 4 times a day. PEG tube placement- 05/03 Zofran 4 mg every 6 hours when necessary Staph aureus pneumonia Possible staph bacteremia Pertinent culture 04/27 - pansensitive staph aureus 04/27 blood cultures 2 negative 04/25 - urine -no growth 04/19 - blood cultures 2 out of 4 - staph aureus 04/19 - sputum - staph aureus 04/08 - sputum - staph aureus 04/03 - sputum - staph aureus 03/30 - sputum- -staph aureus 03/27 - sputum - staph aureus 03/26 - blood - staph hominis On vancomycin 2 g IV every 12 are since 04/19 - 04/29 Azactam 04/27 through 04/29 Currently on clindamycin day #6 ID specialist following, Dr. Painter, appreciate recommendations Leukocytosis Monitor CBC/coags Monitor WBC 11.7, unchanged labs every 3 days, unless clinically indicated Diabetes mellitus SSI for glycemic control (high scale) 30 units sliding scale insulin scale insulin in the past 24 hours, Levemir insulin 70 U Q12 Morbid obesity BMI of 51.8 Weight loss encouraged. DVT, GI prophylaxis -Bilateral lower extremity SCDs. IV Protonix 40 mg daily. Lovenox 40 mg sq BID LINES: -Left upper extremity PICC line placed 04/15-05/04. Peripheral IVs x 2 Discharge plan: Case management has been consulted for discharge plan. The patient T piece trials successful for 48 hours plans for LTAC transfer. Whitney Bejarano MD May 10, 2016 11:35
[2016-05-10] MEDS: POTASSIUM CHLORIDE 10 MEQ CONTROLLED RELEASE TAB PO SCH (11:40)
[2016-05-10] MEDS: BENEPROTEIN POWDER 1 PACK G-TUBE SCH ×2 (11:42→17:43)
--- NOTE | 2016-05-10 16:58 | HHI.PR ---
Subjective Remarks ON THE VENT SEDATED FIO2 AT 50% less sedation alert, nods yes ,no Objective Vital Signs Date Time Temp Pulse Resp B/P Pulse Ox O2 Delivery O2 Flow Rate FiO2 05/10/16 16:00 101 05/10/16 16:00 98.4 101 22 125/75 92 05/10/16 15:17 96 45 05/10/16 14:00 105 05/10/16 12:07 94 45 05/10/16 12:00 97.2 108 21 110/64 92 05/10/16 12:00 108 05/10/16 10:00 108 05/10/16 09:49 25 05/10/16 09:03 96 40 05/10/16 09:03 96 BiPAP 40 05/10/16 08:00 98.6 96 24 134/75 93 05/10/16 08:00 96 05/10/16 07:00 96 Bi-Pap 40 05/10/16 06:00 115 05/10/16 04:09 96 40 05/10/16 04:00 97.9 117 25 120/73 92 05/10/16 04:00 117 05/10/16 02:25 99 40 05/10/16 02:00 105 05/10/16 00:00 98.1 110 25 110/62 87 05/10/16 00:00 110 05/09/16 23:49 93 T-piece 5.00 50 05/09/16 22:00 107 05/09/16 21:48 94 T-piece 6.00 40 05/09/16 20:00 98.5 100 22 132/80 90 05/09/16 20:00 100 05/09/16 19:00 87 T-Piece 40 05/09/16 18:08 20 05/09/16 18:00 97 I/O 05/09/16 05/09/16 05/09/16 05/10/16 05/10/16 05/10/16 07:00 15:00 23:00 07:00 15:00 23:00 Intake Total 776 ml 570 ml 117 ml 1201 ml 567 ml Output Total 150 ml 720.0 ml 350 ml 150 ml 1200 ml Balance 626 ml -150.0 ml -233 ml 1051 ml -633 ml Intake Oral 0 ml 0 ml 0 ml 0 ml IV Total 73 ml 70 ml 117 ml 400 ml 96 ml Tube Feeding 303 ml 400 ml 0 ml 601 ml 271 ml Other 400 ml 100 ml 200 ml 200 ml Output Urine Total 150 ml 700 ml 350 ml 150 ml 1200 ml Tube Feeding Residual Discard 20.0 ml # Bowel Movements 1 1 0 Result Diagram: 05/10/1642805/10/16428 Objective Remarks GENERAL: SKIN: Warm and dry. HEAD: Atraumatic. Normocephalic. EYES: Pupils equal and round. No scleral icterus. No injection or drainage. ENT: No nasal bleeding or discharge. Mucous membranes pink and moist. NECK: Trachea midline. No JVD. CARDIOVASCULAR: Regular rate and rhythm. RESPIRATORY: No accessory muscle use. Clear to auscultation. Breath sounds equal bilaterally. GASTROINTESTINAL: Abdomen soft, non-tender, nondistended. Hepatic and splenic margins not palpable. MUSCULOSKELETAL: Extremities without clubbing, cyanosis, or edema. No obvious deformities. NEUROLOGICAL: Awake and alert. No obvious cranial nerve deficits. Motor grossly within normal limits. Five out of 5 muscle strength in the arms and legs. Normal speech. PSYCHIATRIC: Appropriate mood and affect; insight and judgment normal. Assessment and Plan Assessment and Plan RESPIRATORY FAILURE SEPSIS ARDS JACOB/CSA PLAN VENT SUPPORT FIO2 0.5 PULM TOILET WEAN TOLERATED. CHECK ABG , CXRAY FOR TRACHEOSTOMY TODAY Orlando Perry MD May 10, 2016 16:58
[2016-05-10] MEDS: PANTOPRAZOLE SODIUM 40 MG VIAL IV PUSH SCH (17:42)
[2016-05-11] VITALS (18 sets, daily range): BP systolic 115–140; BP diastolic 67–83; PULSE 95–107; RESP 21–28; TEMP 97.9–98.6; O2SAT 88–99
[2016-05-11] MEDS: FREE WATER G-TUBE SCH ×4 (00:03→17:07)
[2016-05-11] MEDS: ARTIFICIAL TEARS OPTH SOLN 15 ML BTL EACH EYE SCH ×6 (03:12→20:57)
[2016-05-11] MEDS: RESP: ALBUTEROL 2.5 MG/IPRATROPIUM 0.5 MG NEB (PRN) NEB ×4 (03:40→15:54)
[2016-05-11] MEDS: ENOXAPARIN SODIUM 40 MG/0.4 ML SYRINGE SQ SCH ×2 (05:36→17:07)
[2016-05-11] MEDS: INSULIN NovoLIN REGULAR SUPPLEMENTAL SCALE SQ SCH ×4 (05:36→17:08)
[2016-05-11] MEDS: METOCLOPRAMIDE HCL 10 MG/2 ML VIAL IV PUSH SCH ×3 (05:36→20:53)
--- NOTE | 2016-05-11 07:32 | HHI.PR ---
Subjective Remarks Complaints of gas, will give simethicone. No pain . SOB at baseline. + cough. Less secretions. No fever or chills. Objective Vitals Vital Signs Date Time Temp Pulse Resp B/P Pulse Ox O2 Delivery O2 Flow Rate FiO2 05/11/16 06:00 100 05/11/16 04:00 100 05/11/16 04:00 97.9 100 22 128/73 99 05/11/16 03:38 93 45 05/11/16 02:00 95 05/11/16 00:00 105 05/11/16 00:00 98.2 105 21 127/74 92 05/10/16 23:28 91 45 05/10/16 22:18 19 05/10/16 22:00 93 05/10/16 20:42 93 45 05/10/16 20:00 93 05/10/16 20:00 98.9 93 25 138/83 94 05/10/16 19:00 87 Bi-Pap 45 05/10/16 18:00 100 05/10/16 16:00 101 05/10/16 16:00 98.4 101 22 125/75 92 05/10/16 15:17 96 45 05/10/16 14:00 105 05/10/16 12:07 94 45 05/10/16 12:00 97.2 108 21 110/64 92 05/10/16 12:00 108 05/10/16 10:00 108 05/10/16 09:03 96 40 05/10/16 09:03 96 BiPAP 40 05/10/16 08:00 98.6 96 24 134/75 93 05/10/16 08:00 96 I/O 05/10/16 05/10/16 05/10/16 05/11/16 05/11/16 05/11/16 07:00 15:00 23:00 07:00 15:00 23:00 Intake Total 1201 ml 567 ml 616 ml 541 ml Output Total 150 ml 1200 ml 300 ml 150 ml Balance 1051 ml -633 ml 316 ml 391 ml Intake Oral 0 ml 0 ml 0 ml 0 ml IV Total 400 ml 96 ml 42 ml 35 ml Tube Feeding 601 ml 271 ml 374 ml 306 ml Other 200 ml 200 ml 200 ml 200 ml Output Urine Total 150 ml 1200 ml 300 ml 150 ml # Bowel Movements 1 0 0 0 Result Diagram: 05/10/16 0429 05/10/16 0429 Imaging Last Impressions Chest X-Ray 05/10/16 0000 Signed Impressions: Service Date/Time: May 02:31 - CONCLUSION: 1. Hypoinflation with left perihilar atelectasis. Lungs otherwise appear clear. 2. Compensated cardiomegaly. Arthur Kennedy MD Liver Ultrasound 05/09/16 0000 Signed Impressions: Service Date/Time: Monday, May 09, 2016 22:28 - CONCLUSION: 1. Enlarged, fatty liver. 2. Small stones or tumefactive sludge adherent to one of the gallbladder arcos. 3. Splenomegaly. 4. Pancreas is obscured by overlying bowel gas and patient's body habitus. Arthur Kennedy MD Abdomen X-Ray 05/01/16 0000 Signed Impressions: Service Date/Time: Sunday, May 01, 2016 17:28 - CONCLUSION: No evidence of obstruction. Feeding tube overlies the distal stomach, May have to be advanced slightly to reach the duodenum. Nick Jon MD Chest CT 03/28/16 0836 Signed Impressions: Service Date/Time: Monday, March 28, 2016 09:57 - CONCLUSION: Development areas of air bronchograms and consolidation more prominent in the right and left posterior basilar segments of the lower lobes. ET tube above the chanelle. Bernard Hartman MD CT Angiography 03/24/16 1121 Signed Impressions: Service Date/Time: Thursday, March 24, 2016 12:47 - CONCLUSION: 1. There is respiratory motion artifact but no PE is identified through most of the segmental level pulmonary arteries. 2. Mildly enlarged main pulmonary artery may indicate pulmonary arterial hypertension. 3. 11 mm left lower lobe noncalcified pulmonary nodule. Suggest correlation with any prior imaging studies that could confirm longer-term stability. If none are available consider short-term followup noncontrast chest CT in approximately 3 months. Ubaldo Rodas MD Objective Remarks GENERAL: 50-year-old morbidly obese male, chronically ill, with tracheostomy, alert and oriented interactive. SKIN: Integrity intact. Warm and dry. HEAD: Atraumatic. Normocephalic. EYES: Pupils equal round. ENT: NG tube in place. Tracheostomy in situ no drainage or erythema around the site NECK: Large neck. Trachea midline. CARDIOVASCULAR: Distant heart sounds. RRR. S1, S2. No S4 or murmurs. RESPIRATORY: Tracheostomy. Breath sounds equal bilaterally. Diminished breath sounds due to body habitus. GASTROINTESTINAL: Abdomen soft, obese, nontender. Severe central obesity ,PEG tube without erythema or drainage MUSCULOSKELETAL: Extremities with trace to 1+ nonpitting bilateral lower extremity edema. NEUROLOGICAL: Alert. Follows commands, moves extremities 4. Date of Insertion: May 03, 2016 Date of Insertion: Apr 02, 2016 Date of Removal: May 03, 2016 Line: PICC Side: Left Location: Antecubital A/P Assessment and Plan Likely SERENITY Toxic metabolic encephalopathy-resolved off Precedex infusion (05/04) Continue [place] 5/325mg every 6hrs scheduled, fentanyl patch 25mcgs, and Shauna 5mg PRN, fentanyl patch 25 mcgs q 3 days-will begin to wean narcotics Seroquel 25mg BID initiated 05/04 Acetaminophen for fever Acute hypoxemic respiratory failure on T piece tolerates well JACOB OHS History of staph aureus pneumonia/HCAP ARDS Trach collar with oxygen support to keep side>92%. Bronchodilators every 6 hours and every 2 hours as needed Consult pulmonary program for chronic respiratory failure Mild MR/TR. Monitor HR and BP keep MAP>65mmHg 2-D echo 03/26 EF 60%. No regional wall motion abnormality. Mild MR/TR. Hypokalemia Hypernatremia-resolved Hypophosphatemia Monitor renal function, I/O's, electrolytes replacement per protocol. Urine output 625cc/per 12 hours Bumex 0.5mg/day Constipation-resolved Moderate protein calorie malnutrition Nausea and vomiting Flatulence: Give simethicone On Glucerna 1.5@45ml/hr with 1 scoop whey protein 3 times a day, no residual Protonix 40mg daily On Reglan 10mg Q8, Senna and Colace twice a day.Discontinue MiraLAX twice a day and lactulose 4 times a day. PEG tube placement- 05/03 Zofran 4 mg every 6 hours when necessary Staph aureus pneumonia Possible staph bacteremia Pertinent culture 04/27 - pansensitive staph aureus 04/27 blood cultures 2 negative 04/25 - urine -no growth 04/19 - blood cultures 2 out of 4 - staph aureus 04/19 - sputum - staph aureus 04/08 - sputum - staph aureus 04/03 - sputum - staph aureus 03/30 - sputum- -staph aureus 03/27 - sputum - staph aureus 03/26 - blood - staph hominis On vancomycin 2 g IV every 12 are since 04/19 - 04/29 Azactam 04/27 through 04/29 Currently on clindamycin day #6 ID specialist following, Dr. Painter, appreciate recommendations Leukocytosis Monitor CBC/coags Monitor WBC 11.7, unchanged labs every 3 days, unless clinically indicated Diabetes mellitus SSI for glycemic control (high scale) 30 units sliding scale insulin scale insulin in the past 24 hours, Levemir insulin 70 U Q12 Morbid obesity BMI of 51.8 Weight loss encouraged. DVT, GI prophylaxis -Bilateral lower extremity SCDs. IV Protonix 40 mg daily. Lovenox 40 mg sq BID LINES: -Left upper extremity PICC line placed 04/15-05/04. Peripheral IVs x 2 Discharge plan: Case management has been consulted for discharge plan. The patient T piece trials successful for 48 hours plans for LTAC transfer. Whitney Bejarano MD May 11, 2016 07:32
[2016-05-11 07:57] LABS: ALKALINE PHOSPHATASE 83 U/L (45-117); ALT (GPT) 551 U/L (12-78); ANION GAP 7 MEQ/L (5-15); AST (GOT) 174 U/L (15-37); BICARBONATE 36.9 MEQ/L (21.0-32.0); BLOOD UREA NITROGEN 16 MG/DL (7-18); CHLORIDE 96 MEQ/L (98-107); GLOMERULAR FILTRATION RATE 184 ML/MIN (>89); POTASSIUM 3.5 MEQ/L (3.5-5.1); SODIUM (NA) 140 MEQ/L (136-145); TOTAL BILIRUBIN ADULT 0.5 MG/DL (0.2-1.0)
[2016-05-11] MEDS: CHLORHEXIDINE 0.12% (ORAL KIT) 15 ML CUP MT SCH ×2 (07:59→20:00)
[2016-05-11] MEDS: BETAMETHASONE/CLOTRIMAZOLE CREAM 15 GM TOPICAL SCH ×2 (08:00→20:52)
[2016-05-11] MEDS: NYSTATIN 100,000 U/GM PWD 15 GM BTL TOPICAL SCH ×2 (08:00→20:52)
[2016-05-11] MEDS: ARTIFICIAL TEARS OPTH OINT 3.5 APPLIC/3.5 GM TUBO EACH EYE SCH ×2 (08:00→20:53)
[2016-05-11] MEDS: BENEPROTEIN POWDER 1 PACK G-TUBE SCH ×3 (08:01→17:07)
[2016-05-11] MEDS: LACTOBACILLUS ACIDOPHILUS TAB PO SCH ×3 (08:01→17:07)
[2016-05-11] MEDS: SODIUM CHLORIDE 0.9% FLUSH 5 ML FLUSH IVF SCH (08:01)
[2016-05-11] MEDS: POTASSIUM CHLORIDE 10 MEQ CONTROLLED RELEASE TAB PO SCH (08:02)
[2016-05-11] MEDS: fentaNYL 25 MCG/HR PATCH TD SCH (08:02)
[2016-05-11] MEDS: DOCUSATE SODIUM 100 MG/10 ML UDC PO SCH ×2 (08:02→20:52)
[2016-05-11] MEDS: SENNOSIDES SYRUP 8.8 MG/5 ML CUP PO/TUBE SCH ×2 (08:02→20:52)
[2016-05-11] MEDS: methylPREDNISolone SOD SUCC 40 MG/1 ML VIAL IV PUSH SCH (08:02)
[2016-05-11] MEDS: REMOVE OLD PATCH T-DERMAL SCH (08:03)
[2016-05-11] MEDS: ACETAMINOPHEN/HYDROcodone 325 MG/5 MG TAB PO SCH ×2 (08:04→20:53)
[2016-05-11] MEDS: QUEtiapine FUMARATE 25 MG TAB PO SCH ×2 (08:04→20:54)
[2016-05-11] MEDS: POLYETHYLENE GLYCOL 17 GM PKG PO SCH ×2 (08:04→20:53)
[2016-05-11] MEDS: INSULIN DETEMIR 100 UNITS/ML VIAL SQ SCH ×2 (08:04→20:54)
[2016-05-11] MEDS: BUMETANIDE INJ 1 MG/4 ML VIAL IV PUSH SCH (08:05)
--- NOTE | 2016-05-11 13:35 | HHI.GIFU ---
Subjective Remarks Resting in bed. No n/v. No abdominal pain. (Mayra Garcia) Objective Vitals I&O Vital Signs Date Time Temp Pulse Resp B/P Pulse Ox O2 Delivery O2 Flow Rate FiO2 05/11/16 12:00 98.6 107 26 115/67 88 05/11/16 12:00 107 05/11/16 11:30 92 45 05/11/16 10:00 104 05/11/16 09:02 24 05/11/16 09:02 24 05/11/16 08:49 90 45 05/11/16 08:00 105 05/11/16 08:00 98.2 105 28 140/83 90 05/11/16 07:00 99 Bi-Pap 45 05/11/16 06:00 100 05/11/16 04:00 100 05/11/16 04:00 97.9 100 22 128/73 99 05/11/16 03:38 93 45 05/11/16 02:00 95 05/11/16 00:00 105 05/11/16 00:00 98.2 105 21 127/74 92 05/10/16 23:28 91 45 05/10/16 22:00 93 05/10/16 20:42 93 45 05/10/16 20:00 93 05/10/16 20:00 98.9 93 25 138/83 94 05/10/16 19:00 87 Bi-Pap 45 05/10/16 18:00 100 05/10/16 16:00 101 05/10/16 16:00 98.4 101 22 125/75 92 05/10/16 15:17 96 45 05/10/16 14:00 105 I/O 05/10/16 05/10/16 05/10/16 05/11/16 05/11/16 05/11/16 07:00 15:00 23:00 07:00 15:00 23:00 Intake Total 1201 ml 567 ml 616 ml 541 ml Output Total 150 ml 1200 ml 300 ml 150 ml Balance 1051 ml -633 ml 316 ml 391 ml Intake Oral 0 ml 0 ml 0 ml 0 ml IV Total 400 ml 96 ml 42 ml 35 ml Tube Feeding 601 ml 271 ml 374 ml 306 ml Other 200 ml 200 ml 200 ml 200 ml Output Urine Total 150 ml 1200 ml 300 ml 150 ml # Bowel Movements 1 0 0 0 Laboratory Laboratory Tests Test 05/11/16 06:35 Sodium Level 140 Potassium Level 3.5 Chloride Level 96 Carbon Dioxide Level 36.9 Anion Gap 7 Blood Urea Nitrogen 16 Creatinine 0.48 Estimat Glomerular Filtration 184 Rate Random Glucose 135 Calcium Level 9.1 Total Bilirubin 0.5 Aspartate Amino Transf 174 (AST/SGOT) Alanine Aminotransferase 551 (ALT/SGPT) Alkaline Phosphatase 83 Total Protein 6.8 Albumin 2.9 Imaging Last Impressions Chest X-Ray 05/10/16 0000 Signed Impressions: Service Date/Time: May 02:31 - CONCLUSION: 1. Hypoinflation with left perihilar atelectasis. Lungs otherwise appear clear. 2. Compensated cardiomegaly. Arthur Kennedy MD Liver Ultrasound 05/09/16 0000 Signed Impressions: Service Date/Time: Monday, May 09, 2016 22:28 - CONCLUSION: 1. Enlarged, fatty liver. 2. Small stones or tumefactive sludge adherent to one of the gallbladder arcos. 3. Splenomegaly. 4. Pancreas is obscured by overlying bowel gas and patient's body habitus. Arthur Kennedy MD Abdomen X-Ray 05/01/16 0000 Signed Impressions: Service Date/Time: Sunday, May 01, 2016 17:28 - CONCLUSION: No evidence of obstruction. Feeding tube overlies the distal stomach, May have to be advanced slightly to reach the duodenum. Nick Jon MD Chest CT 03/28/16 0836 Signed Impressions: Service Date/Time: Monday, March 28, 2016 09:57 - CONCLUSION: Development areas of air bronchograms and consolidation more prominent in the right and left posterior basilar segments of the lower lobes. ET tube above the chanelle. Bernard Hartman MD CT Angiography 03/24/16 1121 Signed Impressions: Service Date/Time: Thursday, March 24, 2016 12:47 - CONCLUSION: 1. There is respiratory motion artifact but no PE is identified through most of the segmental level pulmonary arteries. 2. Mildly enlarged main pulmonary artery may indicate pulmonary arterial hypertension. 3. 11 mm left lower lobe noncalcified pulmonary nodule. Suggest correlation with any prior imaging studies that could confirm longer-term stability. If none are available consider short-term followup noncontrast chest CT in approximately 3 months. Ubaldo Rodas MD Physical Exam HEENT: Normocephalic; atraumatic; no jaundice. NECK: trach in place CHEST: Coarse BS bilaterally, decreased at bases. T Bar CARDIAC: Regular rate and rhythm ABDOMEN: soft, obese, nondistended, nontender; bowel sounds are present in all four quadrants. PEG tube EXTREMITIES: Generalized edema. SKIN: Normal; no rash; no jaundice. 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 No imaging of liver/gb. Denies hx of liver disease or ETOH abuse. Pt had normal LFTs on admission. These have since fluctuated and now with elevated transaminases. He does not have RUQ tenderness. He is morbidly obese. Liver Ultrasound (05/09/16)----> 1. Enlarged, fatty liver. 2. Small stones or tumefactive sludge adherent to one of the gallbladder arcos. 3. Splenomegaly. 4. Pancreas is obscured by overlying bowel gas and patient's body habitus. Ferritin 741. Iron saturation 34.6. AFP 1.3. Ceruloplasmin pending, Alpha 1 Antitrypsin 189, YUN pending, ASMA pending, AMA pending, Hepatitis negative. LFTs T. Bili 0.5, AST 174, ALT 551, Alk Phosph 83. LFTs trending down. Likely related to fatty liver and medications. - Dysphagia/ENT- S/P EGD/PEG on (05/03/16). Tolerating TF. Plan: - TF per dietary recommendation - Await YUN, ASMA, AMA - Await Ceruloplasmin - Monitor LFTs - FU REED 2 weeks - GI will sign off, please reconsult as needed - Patient seen and examined by Dr De La Cruz and myself and this note is written on his behalf. (Mayra Garcia) Physician Comments Seen and examined with NANCY, probable fatty liver. Liver [place] in progress. Gi will sign off, reconsult as needed, or fu in gi clinic upon dc. Thank you ( Wilfredo De La Cruz MD) Mayra Garcia May 11, 2016 13:35 Wilfredo De La Cruz MD May 11, 2016 20:02
[2016-05-11 14:24] LABS: ANA SCREEN NEG (NEG)
[2016-05-11] MEDS ORDERED: SIMETHICONE 125 MG CHEWABLE TAB PO PRN (15:00)
--- NOTE | 2016-05-11 16:27 | HHI.PR ---
Subjective Remarks ON THE VENT FIO2 AT45% less sedation alert, nods yes ,no Objective Vital Signs Date Time Temp Pulse Resp B/P Pulse Ox O2 Delivery O2 Flow Rate FiO2 05/11/16 15:57 91 45 05/11/16 14:00 102 05/11/16 12:00 98.6 107 26 115/67 88 05/11/16 12:00 107 05/11/16 11:30 92 45 05/11/16 10:00 104 05/11/16 09:02 24 05/11/16 09:02 24 05/11/16 08:49 90 45 05/11/16 08:00 105 05/11/16 08:00 98.2 105 28 140/83 90 05/11/16 07:00 99 Bi-Pap 45 05/11/16 06:00 100 05/11/16 04:00 100 05/11/16 04:00 97.9 100 22 128/73 99 05/11/16 03:38 93 45 05/11/16 02:00 95 05/11/16 00:00 105 05/11/16 00:00 98.2 105 21 127/74 92 05/10/16 23:28 91 45 05/10/16 22:00 93 05/10/16 20:42 93 45 05/10/16 20:00 93 05/10/16 20:00 98.9 93 25 138/83 94 05/10/16 19:00 87 Bi-Pap 45 05/10/16 18:00 100 I/O 05/10/16 05/10/16 05/10/16 05/11/16 05/11/16 05/11/16 07:00 15:00 23:00 07:00 15:00 23:00 Intake Total 1201 ml 567 ml 616 ml 541 ml 509 ml Output Total 150 ml 1200 ml 300 ml 150 ml 550 ml Balance 1051 ml -633 ml 316 ml 391 ml -41 ml Intake Oral 0 ml 0 ml 0 ml 0 ml 0 ml IV Total 400 ml 96 ml 42 ml 35 ml 39 ml Tube Feeding 601 ml 271 ml 374 ml 306 ml 310 ml Other 200 ml 200 ml 200 ml 200 ml 160 ml Output Urine Total 150 ml 1200 ml 300 ml 150 ml 550 ml # Bowel Movements 1 0 0 0 0 Result Diagram: 05/10/16 0429 05/11/16 0635 Objective Remarks GENERAL: SKIN: Warm and dry. HEAD: Atraumatic. Normocephalic. EYES: Pupils equal and round. No scleral icterus. No injection or drainage. ENT: No nasal bleeding or discharge. Mucous membranes pink and moist. NECK: Trachea midline. No JVD. CARDIOVASCULAR: Regular rate and rhythm. RESPIRATORY: No accessory muscle use. Clear to auscultation. Breath sounds equal bilaterally. GASTROINTESTINAL: Abdomen soft, non-tender, nondistended. Hepatic and splenic margins not palpable. MUSCULOSKELETAL: Extremities without clubbing, cyanosis, or edema. No obvious deformities. NEUROLOGICAL: Awake and alert. No obvious cranial nerve deficits. Motor grossly within normal limits. Five out of 5 muscle strength in the arms and legs. Normal speech. PSYCHIATRIC: Appropriate mood and affect; insight and judgment normal. Assessment and Plan Assessment and Plan RESPIRATORY FAILURE SEPSIS ARDS JACOB/CSA PLAN VENT SUPPORT PULM TOILET WEAN TOLERATED. respiratory failure now on BIPAP PLAN WEAN FURTHUR TOLERATED Orlando Perry MD May 11, 2016 16:27
[2016-05-11] MEDS: PANTOPRAZOLE SODIUM 40 MG VIAL IV PUSH SCH (17:07)
[2016-05-12] VITALS (17 sets, daily range): BP systolic 121–143; BP diastolic 61–85; PULSE 84–102; RESP 21–34; TEMP 98–98.9; O2SAT 93–97
[2016-05-12] MEDS: ARTIFICIAL TEARS OPTH SOLN 15 ML BTL EACH EYE SCH ×6 (02:00→23:31)
[2016-05-12] MEDS: FREE WATER G-TUBE SCH ×5 (06:00→23:23)
[2016-05-12] MEDS: INSULIN NovoLIN REGULAR SUPPLEMENTAL SCALE SQ SCH ×5 (06:00→23:30)
[2016-05-12 06:23] LABS: ANION GAP 9 MEQ/L (5-15); AST (GOT) 150 U/L (15-37); BICARBONATE 34.4 MEQ/L (21.0-32.0); BLOOD UREA NITROGEN 20 MG/DL (7-18); CHLORIDE 99 MEQ/L (98-107); GLOMERULAR FILTRATION RATE 209 ML/MIN (>89); POTASSIUM 3.7 MEQ/L (3.5-5.1); SODIUM (NA) 142 MEQ/L (136-145)
[2016-05-12] MEDS: METOCLOPRAMIDE HCL 10 MG/2 ML VIAL IV PUSH SCH ×3 (06:24→23:22)
[2016-05-12] MEDS: ENOXAPARIN SODIUM 40 MG/0.4 ML SYRINGE SQ SCH ×2 (06:24→17:41)
[2016-05-12 06:27] LABS: ALKALINE PHOSPHATASE 78 U/L (45-117); ALT (GPT) 506 U/L (12-78); TOTAL BILIRUBIN ADULT 0.4 MG/DL (0.2-1.0)
[2016-05-12] MEDS: CHLORHEXIDINE 0.12% (ORAL KIT) 15 ML CUP MT SCH ×2 (08:00→20:00)
--- NOTE | 2016-05-12 08:57 | HHI.DCPOC ---
Discharge Care Plan Goals to Promote Your Health * To prevent worsening of your condition and complications * To maintain your health at the optimal level Directions to Meet Your Goals Take your medications as prescribed Follow your dietary instruction Follow activity as directed Keep your appointments as scheduled Take your immunizations and boosters as scheduled If your symptoms worsen call your PCP, if no PCP go to Urgent Care Center or Emergency Room Smoking is Dangerous to Your Health. Avoid second hand smoke Call the 24-hour hour crisis hotline for domestic abuse at Whitney Bejarano MD May 12, 2016 08:57
[2016-05-12] MEDS: INSULIN DETEMIR 100 UNITS/ML VIAL SQ SCH ×2 (09:00→20:46)
[2016-05-12] MEDS: BENEPROTEIN POWDER 1 PACK G-TUBE SCH ×3 (09:00→17:41)
[2016-05-12] MEDS: ARTIFICIAL TEARS OPTH OINT 3.5 APPLIC/3.5 GM TUBO EACH EYE SCH ×2 (09:00→20:40)
[2016-05-12] MEDS: BETAMETHASONE/CLOTRIMAZOLE CREAM 15 GM TOPICAL SCH ×2 (09:00→20:42)
[2016-05-12] MEDS ORDERED: BUME1TAB25 PO (09:01)
[2016-05-12] MEDS ORDERED: PROT6POW G-TUBE (09:05)
[2016-05-12] MEDS ORDERED: QUET1TAB7 PO (09:05)
[2016-05-12] MEDS ORDERED: COLA100C3 PO (09:05)
[2016-05-12] MEDS ORDERED: OXYC1CAP PO (09:05)
[2016-05-12] MEDS ORDERED: FENT25T TD (09:08)
[2016-05-12] MEDS ORDERED: IPRASOL INH (09:09)
[2016-05-12] MEDS ORDERED: LEVEMIR SQ (09:11)
[2016-05-12] MEDS: NYSTATIN 100,000 U/GM PWD 15 GM BTL TOPICAL SCH ×2 (09:49→20:41)
[2016-05-12] MEDS: POTASSIUM CHLORIDE 10 MEQ CONTROLLED RELEASE TAB PO SCH (09:50)
[2016-05-12] MEDS: SENNOSIDES SYRUP 8.8 MG/5 ML CUP PO/TUBE SCH ×2 (09:50→20:38)
[2016-05-12] MEDS: DOCUSATE SODIUM 100 MG/10 ML UDC PO SCH ×2 (09:50→20:38)
[2016-05-12] MEDS: POLYETHYLENE GLYCOL 17 GM PKG PO SCH ×2 (09:50→20:38)
[2016-05-12] MEDS: ACETAMINOPHEN/HYDROcodone 325 MG/5 MG TAB PO SCH ×2 (09:50→20:39)
[2016-05-12] MEDS: LACTOBACILLUS ACIDOPHILUS TAB PO SCH ×3 (09:50→17:41)
[2016-05-12] MEDS: BUMETANIDE INJ 1 MG/4 ML VIAL IV PUSH SCH (09:50)
[2016-05-12] MEDS: QUEtiapine FUMARATE 25 MG TAB PO SCH ×2 (09:51→20:40)
[2016-05-12] MEDS: SODIUM CHLORIDE 0.9% FLUSH 5 ML FLUSH IVF SCH (09:51)
--- NOTE | 2016-05-12 10:01 | HHI.PR ---
Subjective Remarks Patient in nad. Says he doesn't have much gas and no abdominal pain. No n/v/d/ c. SOB at baseline. He has a short neck and Tpiece is making a an ulcerated lesion on his neck apply cussions and bacitracin, consult wound care Objective Vitals Vital Signs Date Time Temp Pulse Resp B/P Pulse Ox O2 Delivery O2 Flow Rate FiO2 05/12/16 06:00 97 05/12/16 04:00 96 05/12/16 04:00 98.2 96 21 127/75 95 05/12/16 03:34 95 45 05/12/16 02:00 84 05/12/16 01:14 97 45 05/12/16 00:00 98.4 102 34 130/76 94 05/12/16 00:00 102 05/11/16 22:52 95 45 05/11/16 22:00 103 05/11/16 20:00 96 05/11/16 20:00 98.6 96 22 132/74 95 05/11/16 19:44 95 45 05/11/16 19:00 95 Bi-Pap 45 05/11/16 18:00 101 05/11/16 16:00 107 05/11/16 16:00 98.4 107 28 115/68 95 05/11/16 15:57 91 45 05/11/16 14:00 102 05/11/16 12:00 98.6 107 26 115/67 88 05/11/16 12:00 107 05/11/16 11:30 92 45 05/11/16 10:00 104 I/O 05/11/16 05/11/16 05/11/16 05/12/16 05/12/16 05/12/16 07:00 15:00 23:00 07:00 15:00 23:00 Intake Total 541 ml 509 ml 591 ml 601 ml Output Total 150 ml 550 ml 500 ml 200 ml Balance 391 ml -41 ml 91 ml 401 ml Intake Oral 0 ml 0 ml IV Total 35 ml 39 ml 42 ml 38 ml Tube Feeding 306 ml 310 ml 349 ml 363 ml Other 200 ml 160 ml 200 ml 200 ml Output Urine Total 150 ml 550 ml 500 ml 200 ml # Bowel Movements 0 0 0 Result Diagram: 05/10/16 0429 05/12/16 0503 Imaging Last Impressions Chest X-Ray 05/10/16 0000 Signed Impressions: Service Date/Time: May 02:31 - CONCLUSION: 1. Hypoinflation with left perihilar atelectasis. Lungs otherwise appear clear. 2. Compensated cardiomegaly. Arthur Kennedy MD Liver Ultrasound 05/09/16 0000 Signed Impressions: Service Date/Time: Monday, May 09, 2016 22:28 - CONCLUSION: 1. Enlarged, fatty liver. 2. Small stones or tumefactive sludge adherent to one of the gallbladder arcos. 3. Splenomegaly. 4. Pancreas is obscured by overlying bowel gas and patient's body habitus. Arthur Kennedy MD Abdomen X-Ray 05/01/16 0000 Signed Impressions: Service Date/Time: Sunday, May 01, 2016 17:28 - CONCLUSION: No evidence of obstruction. Feeding tube overlies the distal stomach, May have to be advanced slightly to reach the duodenum. Nick Jon MD Chest CT 03/28/16 0836 Signed Impressions: Service Date/Time: Monday, March 28, 2016 09:57 - CONCLUSION: Development areas of air bronchograms and consolidation more prominent in the right and left posterior basilar segments of the lower lobes. ET tube above the chanelle. Bernard Hartman MD CT Angiography 03/24/16 1121 Signed Impressions: Service Date/Time: Thursday, March 24, 2016 12:47 - CONCLUSION: 1. There is respiratory motion artifact but no PE is identified through most of the segmental level pulmonary arteries. 2. Mildly enlarged main pulmonary artery may indicate pulmonary arterial hypertension. 3. 11 mm left lower lobe noncalcified pulmonary nodule. Suggest correlation with any prior imaging studies that could confirm longer-term stability. If none are available consider short-term followup noncontrast chest CT in approximately 3 months. Ubaldo Rodas MD Objective Remarks GENERAL: 50-year-old morbidly obese male, chronically ill, with tracheostomy, alert and oriented interactive. SKIN: Integrity intact. Warm and dry. HEAD: Atraumatic. Normocephalic. EYES: Pupils equal round. ENT: NG tube in place. Tracheostomy in situ no drainage or erythema around the site NECK: Large neck. Trachea midline. CARDIOVASCULAR: Distant heart sounds. RRR. S1, S2. No S4 or murmurs. RESPIRATORY: Tracheostomy. Breath sounds equal bilaterally. Diminished breath sounds due to body habitus. GASTROINTESTINAL: Abdomen soft, obese, nontender. Severe central obesity ,PEG tube without erythema or drainage MUSCULOSKELETAL: Extremities with trace to 1+ nonpitting bilateral lower extremity edema. NEUROLOGICAL: Alert. Follows commands, moves extremities 4. Date of Insertion: May 03, 2016 Date of Insertion: Apr 02, 2016 Date of Removal: May 03, 2016 Line: PICC Side: Left Location: Antecubital A/P Assessment and Plan Likely SERENITY Toxic metabolic encephalopathy-resolved Off Precedex infusion (05/04) Continue [place] 5/325mg every 6hrs scheduled, fentanyl patch 25mcgs, and Shauna 5mg PRN, fentanyl patch 25 mcgs q 3 days-will begin to wean narcotics Seroquel 25mg BID initiated 05/04 Acetaminophen for fever Acute hypoxemic respiratory failure on T piece tolerates well [facility] History of staph aureus pneumonia/HCAP ARDS Trach collar with oxygen support to keep side>92%. Bronchodilators every 6 hours and every 2 hours as needed Consult pulmonary program for chronic respiratory failure Wound on anterior neck 04/05 collar, patient has a short and large neck. Apply bacitracin, wound cultures, cushions. Consult wound care. Mild MR/TR. Monitor HR and BP keep MAP>65mmHg 2-D echo 03/26 EF 60%. No regional wall motion abnormality. Mild MR/TR. Hypokalemia Hypernatremia-resolved Hypophosphatemia Monitor renal function, I/O's, electrolytes replacement per protocol. Urine output 625cc/per 12 hours Bumex 0.5mg/day Constipation-resolved Moderate protein calorie malnutrition Nausea and vomiting Flatulence: Give simethicone On Glucerna 1.5@45ml/hr with 1 scoop whey protein 3 times a day, no residual Protonix 40mg daily On Reglan 10mg Q8, Senna and Colace twice a day.Discontinue MiraLAX twice a day and lactulose 4 times a day. PEG tube placement- 05/03 Zofran 4 mg every 6 hours when necessary Transaminitis: Follow trend of LFT. Reconsult GI. Avoid liver toxicity drugs. Staph aureus pneumonia Possible staph bacteremia Pertinent culture 04/27 - pansensitive staph aureus 04/27 blood cultures 2 negative 04/25 - urine -no growth 04/19 - blood cultures 2 out of 4 - staph aureus 04/19 - sputum - staph aureus 04/08 - sputum - staph aureus 04/03 - sputum - staph aureus 03/30 - sputum- -staph aureus 03/27 - sputum - staph aureus 03/26 - blood - staph hominis On vancomycin 2 g IV every 12 are since 04/19 - 04/29 Azactam 04/27 through 04/29 Currently on clindamycin day #6 ID specialist following, Dr. Painter, appreciate recommendations Leukocytosis Monitor CBC/coags Monitor WBC 11.7, unchanged labs every 3 days, unless clinically indicated Diabetes mellitus SSI for glycemic control (high scale) 30 units sliding scale insulin scale insulin in the past 24 hours, Levemir insulin 70 U Q12 Morbid obesity BMI of 51.8 Weight loss encouraged. DVT, GI prophylaxis -Bilateral lower extremity SCDs. IV Protonix 40 mg daily. Lovenox 40 mg sq BID LINES: -Left upper extremity PICC line placed 04/15-05/04. Peripheral IVs x 2 Discharge plan: Case management has been consulted for discharge plan. The patient T piece trials successful for 48 hours plans for LTAC transfer. Discussed with the case management, very difficult discharge, no LTAC facility will take patient, currently is looking for SNF. [id number] signed. Whitney Bejarano MD May 12, 2016 10:01
--- NOTE | 2016-05-12 12:45 | HHI.GIFU ---
Subjective Remarks Patient is resting in bed denies nausea, vomiting or abdomen pain. This is a reconsult (Khushi Moreno) Objective Vitals I&O Vital Signs Date Time Temp Pulse Resp B/P Pulse Ox O2 Delivery O2 Flow Rate FiO2 05/12/16 12:00 101 05/12/16 12:00 98.6 101 22 125/63 93 05/12/16 10:13 96 T-piece 6.00 50 05/12/16 10:08 95 BiPAP 45 05/12/16 10:06 94 45 05/12/16 10:00 97 05/12/16 08:00 99 05/12/16 08:00 98.1 99 26 127/61 93 05/12/16 07:00 98 Bi-Pap 45 05/12/16 06:00 97 05/12/16 04:00 96 05/12/16 04:00 98.2 96 21 127/75 95 05/12/16 03:34 95 45 05/12/16 02:00 84 05/12/16 01:14 97 45 05/12/16 00:00 98.4 102 34 130/76 94 05/12/16 00:00 102 05/11/16 22:52 95 45 05/11/16 22:00 103 05/11/16 20:00 96 05/11/16 20:00 98.6 96 22 132/74 95 05/11/16 19:44 95 45 05/11/16 19:00 95 Bi-Pap 45 05/11/16 18:00 101 05/11/16 16:00 107 05/11/16 16:00 98.4 107 28 115/68 95 05/11/16 15:57 91 45 05/11/16 14:00 102 I/O 05/11/16 05/11/16 05/11/16 05/12/16 05/12/16 05/12/16 07:00 15:00 23:00 07:00 15:00 23:00 Intake Total 541 ml 509 ml 591 ml 601 ml Output Total 150 ml 550 ml 500 ml 200 ml Balance 391 ml -41 ml 91 ml 401 ml Intake Oral 0 ml 0 ml IV Total 35 ml 39 ml 42 ml 38 ml Tube Feeding 306 ml 310 ml 349 ml 363 ml Other 200 ml 160 ml 200 ml 200 ml Output Urine Total 150 ml 550 ml 500 ml 200 ml # Bowel Movements 0 0 0 Laboratory Laboratory Tests Test 05/12/16 05:03 Sodium Level 142 Potassium Level 3.7 Chloride Level 99 Carbon Dioxide Level 34.4 Anion Gap 9 Blood Urea Nitrogen 20 Creatinine 0.43 Estimat Glomerular Filtration 209 Rate Random Glucose 134 Calcium Level 9.5 Total Bilirubin 0.4 Aspartate Amino Transf 150 (AST/SGOT) Alanine Aminotransferase 506 (ALT/SGPT) Alkaline Phosphatase 78 Total Protein 6.7 Albumin 3.0 Imaging Last Impressions Chest X-Ray 05/10/16 0000 Signed Impressions: Service Date/Time: May 02:31 - CONCLUSION: 1. Hypoinflation with left perihilar atelectasis. Lungs otherwise appear clear. 2. Compensated cardiomegaly. Arthur Kennedy MD Liver Ultrasound 05/09/16 0000 Signed Impressions: Service Date/Time: Monday, May 09, 2016 22:28 - CONCLUSION: 1. Enlarged, fatty liver. 2. Small stones or tumefactive sludge adherent to one of the gallbladder arcos. 3. Splenomegaly. 4. Pancreas is obscured by overlying bowel gas and patient's body habitus. Artuhr Kennedy MD Abdomen X-Ray 05/01/16 0000 Signed Impressions: Service Date/Time: Sunday, May 01, 2016 17:28 - CONCLUSION: No evidence of obstruction. Feeding tube overlies the distal stomach, May have to be advanced slightly to reach the duodenum. Nick Jon MD Chest CT 03/28/16 0836 Signed Impressions: Service Date/Time: Monday, March 28, 2016 09:57 - CONCLUSION: Development areas of air bronchograms and consolidation more prominent in the right and left posterior basilar segments of the lower lobes. ET tube above the chanelle. Bernard Hartman MD CT Angiography 03/24/16 1121 Signed Impressions: Service Date/Time: Thursday, March 24, 2016 12:47 - CONCLUSION: 1. There is respiratory motion artifact but no PE is identified through most of the segmental level pulmonary arteries. 2. Mildly enlarged main pulmonary artery may indicate pulmonary arterial hypertension. 3. 11 mm left lower lobe noncalcified pulmonary nodule. Suggest correlation with any prior imaging studies that could confirm longer-term stability. If none are available consider short-term followup noncontrast chest CT in approximately 3 months. Ubaldo Rodas MD Physical Exam HEENT: Normocephalic; atraumatic; no jaundice. NECK: trach in place CHEST: Coarse BS bilaterally, decreased at bases. T Bar CARDIAC: Regular rate and rhythm ABDOMEN: soft, obese, nondistended, nontender; bowel sounds are present in all four quadrants. PEG tube EXTREMITIES: Generalized edema. SKIN: Normal; no rash; no jaundice. BUTCHER HELPER: Alert (Khushi Moreno) Assessment and Plan Plan ASSESSMENT: - Elevated LFTs. Alk Phosph 78. bili 0.4 LFTs trending down, but not significant. Patient denies nausea or vomiting or abdomen pain Liver Ultrasound (05/09/16)----> 1. Enlarged, fatty liver. 2. Small stones or tumefactive sludge adherent to one of the gallbladder arcos. 3. Splenomegaly. 4. Pancreas is obscured by overlying bowel gas and patient's body habitus. Ferritin 741. Iron saturation 34.6. AFP 1.3. Ceruloplasmin pending, Alpha 1 Antitrypsin 189, YUN neg, ASMA neg, AMA pending, Hepatitis negative. Likely related to fatty liver and medications. - Dysphagia/ENT- S/P EGD/PEG on (05/03/16). Tolerating TF. Plan: - TF per dietary recommendation - Await AMA - Await Ceruloplasmin - Monitor LFTs - Avoid hepatotoxic meds - Patient seen and examined by Dr De La Cruz and myself and this note is written on his behalf. (Khushi Moreno) Physician Comments Seen and examined, reconsulted for elevated lfts. Slowly improving. Serologies- ve. Monitor lfts. (Wilfredo De La Cruz MD) Khushi Moreno May 12, 2016 12:45 Wilfredo De La Cruz MD May 12, 2016 13:44
[2016-05-12] MEDS: PANTOPRAZOLE SODIUM 40 MG VIAL IV PUSH SCH (17:41)
[2016-05-13] VITALS (13 sets, daily range): BP systolic 127–153; BP diastolic 74–89; PULSE 99–116; RESP 14–23; TEMP 98.3–100; O2SAT 93–97
[2016-05-13] MEDS: ARTIFICIAL TEARS OPTH SOLN 15 ML BTL EACH EYE SCH ×6 (02:00→21:16)
[2016-05-13] MEDS: FREE WATER G-TUBE SCH ×3 (05:22→17:31)
[2016-05-13] MEDS: INSULIN NovoLIN REGULAR SUPPLEMENTAL SCALE SQ SCH ×4 (05:24→21:00)
[2016-05-13] MEDS: ENOXAPARIN SODIUM 40 MG/0.4 ML SYRINGE SQ SCH ×2 (05:28→17:31)
[2016-05-13] MEDS: METOCLOPRAMIDE HCL 10 MG/2 ML VIAL IV PUSH SCH ×3 (05:28→21:15)
[2016-05-13 05:38] LABS: AUTOMATED NEUTROPHIL # 9.1 TH/MM3 (1.8-7.7); BASOPHIL # 0.1 TH/MM3 (0-0.2); BASOPHIL % 1.1 % (0.0-2.0); EOSINOPHIL # 0.2 TH/MM3 (0-0.4); EOSINOPHIL % 1.3 % (0.0-4.0); HEMATOCRIT 36.9 % (39.0-51.0); LYMPHOCYTE # 2.5 TH/MM3 (1.0-4.8); MEAN CELL VOLUME 84.1 FL (80.0-100.0); MEAN CORPUSCULAR HEMOGLOBIN 27.4 PG (27.0-34.0); MEAN CORPUSCULAR HGB CONC 32.6 % (32.0-36.0); MONO % 6.1 % (0.0-8.0); NEUT % 71.5 % (16.0-70.0); PLATELET COUNT 254 TH/MM3 (150-450); RED BLOOD COUNT 4.39 MIL/MM3 (4.50-5.90); RED CELL DISTRIBUTION WIDTH 17.2 % (11.6-17.2); WHITE BLOOD COUNT 12.8 TH/MM3 (4.0-11.0)
[2016-05-13 05:56] LABS: HEMO FLAGS AUTO DIFF
[2016-05-13 06:09] LABS: BICARBONATE 35.2 MEQ/L (21.0-32.0); POTASSIUM 3.7 MEQ/L (3.5-5.1)
[2016-05-13] MEDS: CHLORHEXIDINE 0.12% (ORAL KIT) 15 ML CUP MT SCH ×2 (08:00→20:00)
[2016-05-13] MEDS: ARTIFICIAL TEARS OPTH OINT 3.5 APPLIC/3.5 GM TUBO EACH EYE SCH ×2 (08:09→21:00)
[2016-05-13] MEDS: BENEPROTEIN POWDER 1 PACK G-TUBE SCH ×3 (08:09→17:31)
[2016-05-13] MEDS: ACETAMINOPHEN/HYDROcodone 325 MG/5 MG TAB PO SCH ×2 (08:10→21:14)
[2016-05-13] MEDS: QUEtiapine FUMARATE 25 MG TAB PO SCH ×2 (08:10→21:13)
[2016-05-13] MEDS: DOCUSATE SODIUM 100 MG/10 ML UDC PO SCH ×2 (08:10→21:00)
[2016-05-13] MEDS: LACTOBACILLUS ACIDOPHILUS TAB PO SCH ×3 (08:10→17:31)
[2016-05-13] MEDS: BUMETANIDE INJ 1 MG/4 ML VIAL IV PUSH SCH (08:10)
[2016-05-13] MEDS: POTASSIUM CHLORIDE 10 MEQ CONTROLLED RELEASE TAB PO SCH (08:10)
[2016-05-13] MEDS: SODIUM CHLORIDE 0.9% FLUSH 5 ML FLUSH IVF SCH (08:10)
[2016-05-13 08:11] LABS: BANDS 10 % (0-6); EOSINOPHILS 1 % (0-4); METAMYELOCYTES 1 % (0-1); MYELOCYTES 2 % (0-0); NEUTROPHIL # MANUAL DIFF 9.7 TH/MM3 (1.8-7.7); POLYS (SEG NEUTROPHILS) 63 % (16-70); WBC DIFF SAMPLE 100
[2016-05-13] MEDS: BETAMETHASONE/CLOTRIMAZOLE CREAM 15 GM TOPICAL SCH ×2 (08:11→21:15)
[2016-05-13] MEDS: NYSTATIN 100,000 U/GM PWD 15 GM BTL TOPICAL SCH ×2 (08:11→21:15)
[2016-05-13] MEDS: INSULIN DETEMIR 100 UNITS/ML VIAL SQ SCH ×2 (08:11→21:30)
[2016-05-13] MEDS: POLYETHYLENE GLYCOL 17 GM PKG PO SCH ×2 (08:11→21:00)
[2016-05-13] MEDS: SENNOSIDES SYRUP 8.8 MG/5 ML CUP PO/TUBE SCH ×2 (08:11→21:00)
[2016-05-13 08:12] LABS: PLATELET ESTIMATE SMEAR NORMAL (NORMAL); PLATELET MORPHOLOGY NORMAL (NORMAL); SCAN/DIFF FINAL DIFF MANUAL
--- NOTE | 2016-05-13 09:22 | HHI.PR ---
Subjective Remarks Sleepy. Says he feels much better, he did have a large BM. No much abdominal pain. no n/v/d/c. No fever or chills. BS into normal side, will decreased levemir Objective Vitals Vital Signs Date Time Temp Pulse Resp B/P Pulse Ox O2 Delivery O2 Flow Rate FiO2 05/13/16 09:06 19 05/13/16 07:00 97 Bi-Pap 45 05/13/16 06:00 99 05/13/16 04:00 98.3 115 23 143/89 93 05/13/16 04:00 115 05/13/16 03:49 94 45 05/13/16 02:00 109 05/13/16 00:00 99.0 100 18 140/75 94 05/13/16 00:00 100 05/12/16 23:00 94 Bi-Pap 45 05/12/16 22:00 94 45 05/12/16 22:00 100 05/12/16 22:00 94 BiPAP 45 05/12/16 20:00 98.9 101 25 143/85 95 05/12/16 20:00 101 05/12/16 19:00 94 T-Piece 50 05/12/16 18:00 96 05/12/16 16:00 98.0 94 24 121/72 93 05/12/16 16:00 94 05/12/16 14:00 97 05/12/16 12:00 101 05/12/16 12:00 98.6 101 22 125/63 93 05/12/16 10:13 96 T-piece 6.00 50 05/12/16 10:08 95 BiPAP 45 05/12/16 10:06 94 45 05/12/16 10:00 97 I/O 05/12/16 05/12/16 05/12/16 05/13/16 05/13/16 05/13/16 07:00 15:00 23:00 07:00 15:00 23:00 Intake Total 601 ml 1772 ml 1223 ml 1207 ml Output Total 200 ml 800 ml 195 ml 195 ml Balance 401 ml 972 ml 1028 ml 1012 ml Intake Oral 1000 ml 750 ml 750 ml IV Total 38 ml 43 ml 37 ml 33 ml Tube Feeding 363 ml 349 ml 336 ml 249 ml Tube Irrigant 180 ml Other 200 ml 200 ml 100 ml 175 ml Output Urine Total 200 ml 800 ml 195 ml 195 ml # Bowel Movements 0 0 0 Result Diagram: 05/13/16 0431 05/13/16 0431 Imaging Last Impressions Chest X-Ray 05/10/16 0000 Signed Impressions: Service Date/Time: May 02:31 - CONCLUSION: 1. Hypoinflation with left perihilar atelectasis. Lungs otherwise appear clear. 2. Compensated cardiomegaly. Arthur Kennedy MD Liver Ultrasound 05/09/16 0000 Signed Impressions: Service Date/Time: Monday, May 09, 2016 22:28 - CONCLUSION: 1. Enlarged, fatty liver. 2. Small stones or tumefactive sludge adherent to one of the gallbladder arcos. 3. Splenomegaly. 4. Pancreas is obscured by overlying bowel gas and patient's body habitus. Arthur Kennedy MD Abdomen X-Ray 05/01/16 0000 Signed Impressions: Service Date/Time: Sunday, May 01, 2016 17:28 - CONCLUSION: No evidence of obstruction. Feeding tube overlies the distal stomach, May have to be advanced slightly to reach the duodenum. Nick Jon MD Chest CT 03/28/16 0836 Signed Impressions: Service Date/Time: Monday, March 28, 2016 09:57 - CONCLUSION: Development areas of air bronchograms and consolidation more prominent in the right and left posterior basilar segments of the lower lobes. ET tube above the chanelle. Bernard Hartman MD CT Angiography 03/24/16 1121 Signed Impressions: Service Date/Time: Thursday, March 24, 2016 12:47 - CONCLUSION: 1. There is respiratory motion artifact but no PE is identified through most of the segmental level pulmonary arteries. 2. Mildly enlarged main pulmonary artery may indicate pulmonary arterial hypertension. 3. 11 mm left lower lobe noncalcified pulmonary nodule. Suggest correlation with any prior imaging studies that could confirm longer-term stability. If none are available consider short-term followup noncontrast chest CT in approximately 3 months. Ubaldo Rodas MD Objective Remarks GENERAL: 50-year-old morbidly obese male, chronically ill, with tracheostomy, alert and oriented interactive. SKIN: Integrity intact. Warm and dry. HEAD: Atraumatic. Normocephalic. EYES: Pupils equal round. ENT: NG tube in place. Tracheostomy in situ no drainage or erythema around the site NECK: Large neck. Trachea midline, there is 2x2 cm wound at the collar anterior related to pressure/friction from collar, nonbleeding, optifoam in place. CARDIOVASCULAR: Distant heart sounds. RRR. S1, S2. No S4 or murmurs. RESPIRATORY: Tracheostomy. Breath sounds equal bilaterally. Diminished breath sounds due to body habitus. GASTROINTESTINAL: Abdomen soft, obese, nontender. Severe central obesity ,PEG tube without erythema or drainage MUSCULOSKELETAL: Extremities with trace to 1+ nonpitting bilateral lower extremity edema. NEUROLOGICAL: Alert. Follows commands, moves extremities 4. Date of Insertion: May 03, 2016 Date of Insertion: Apr 02, 2016 Date of Removal: May 03, 2016 Line: PICC Side: Left Location: Antecubital A/P Assessment and Plan Transaminitis Abd pain Follow trend of LFT. Reconsulted GI, appreciate recommendations. Liver US shows fatty liver. Small stones or tumefactive sludge adherent to one of the gallbladder arcos. 3. Splenomegaly. Avoid liver toxicity drugs. Check serology, GI following. Diabetes mellitus SSI for glycemic control (high scale) 30 units sliding scale insulin scale insulin in the past 24 hours, decrease Levemir insulin 35 U Q12 as BS is controlled and levemir was held Acute hypoxemic respiratory failure on T piece tolerates well [facility] History of staph aureus pneumonia/HCAP ARDS Trach collar with oxygen support to keep sat >92%. Bronchodilators every 6 hours and every 2 hours as needed Consult pulmonary program for chronic respiratory failure Wound on anterior neck 2/2 collar, patient has a short and large neck. Optifoam in place. Apply bacitracin, wound cultures. Consult wound care. Mild MR/TR. Monitor HR and BP keep MAP>65mmHg 2-D echo 03/26 EF 60%. No regional wall motion abnormality. Mild MR/TR. Hypokalemia Hypernatremia-resolved Hypophosphatemia Monitor renal function, I/O's, electrolytes replacement per protocol. Urine output 625cc/per 12 hours Bumex 0.5mg/day Constipation-resolved Moderate protein calorie malnutrition Nausea and vomiting Flatulence: Give simethicone On Glucerna 1.5@45ml/hr with 1 scoop whey protein 3 times a day, no residual Protonix 40mg daily On Reglan 10mg Q8, Senna and Colace twice a day.Discontinue MiraLAX twice a day and lactulose 4 times a day. PEG tube placement- 05/03 Zofran 4 mg every 6 hours when necessary Likely SERENITY Toxic metabolic encephalopathy-resolved Off Precedex infusion (05/04) Continue [place] 5/325mg every 6hrs scheduled, fentanyl patch 25mcgs, and Shauna 5mg PRN, fentanyl patch 25 mcgs q 3 days-will begin to wean narcotics Seroquel 25mg BID initiated 05/04 Acetaminophen for fever Staph aureus pneumonia Possible staph bacteremia Pertinent culture 04/27 - pansensitive staph aureus 04/27 blood cultures 2 negative 04/25 - urine -no growth 04/19 - blood cultures 2 out of 4 - staph aureus 04/19 - sputum - staph aureus 04/08 - sputum - staph aureus 04/03 - sputum - staph aureus 03/30 - sputum- -staph aureus 03/27 - sputum - staph aureus 03/26 - blood - staph hominis On vancomycin 2 g IV every 12 are since 04/19 - 04/29 Azactam 04/27 through 04/29 Finished clindamycin ID specialist consulted, Dr. Painter, appreciate recommendations. Finished course of abx, ID specialist signed off. Leukocytosis Monitor CBC/coags Monitor WBC 11.7, unchanged Labs every 3 days, unless clinically indicated Morbid obesity BMI of 51.8 Weight loss encouraged. DVT, GI prophylaxis -Bilateral lower extremity SCDs. IV Protonix 40 mg daily. Lovenox 40 mg sq BID LINES: -Left upper extremity PICC line placed 04/15-05/04. Peripheral IVs x 2 Discharge plan: Case management has been consulted for discharge plan. The patient T piece trials successful for 48 hours plans for LTAC transfer. Discussed with the case management, very difficult discharge, no LTAC facility will take patient, currently is looking for SNF. [id number] signed. Whitney Bejarano MD May 13, 2016 09:22
[2016-05-13] MEDS ORDERED: DEXTROSE 50% IN WATER 50 ML VIAL(D50) IV PUSH PRN (14:00)
[2016-05-13] MEDS ORDERED: GLUCAGON 1 MG/ML VIAL OTHER PRN (14:00)
[2016-05-13] MEDS: PANTOPRAZOLE SODIUM 40 MG VIAL IV PUSH SCH (17:31)
[2016-05-14] VITALS (15 sets, daily range): BP systolic 88–137; BP diastolic 57–78; PULSE 101–122; RESP 17–25; TEMP 98.2–99.9; O2SAT 91–97
[2016-05-14] MEDS: FREE WATER G-TUBE SCH ×4 (01:30→16:36)
[2016-05-14] MEDS: ARTIFICIAL TEARS OPTH SOLN 15 ML BTL EACH EYE SCH ×6 (05:23→19:47)
[2016-05-14] MEDS: INSULIN NovoLIN REGULAR SUPPLEMENTAL SCALE SQ SCH ×4 (05:49→19:47)
[2016-05-14] MEDS: ENOXAPARIN SODIUM 40 MG/0.4 ML SYRINGE SQ SCH ×2 (05:49→18:16)
[2016-05-14] MEDS: METOCLOPRAMIDE HCL 10 MG/2 ML VIAL IV PUSH SCH ×3 (05:50→19:51)
[2016-05-14] MEDS: NYSTATIN 100,000 U/GM PWD 15 GM BTL TOPICAL SCH ×2 (08:58→19:47)
[2016-05-14] MEDS: BETAMETHASONE/CLOTRIMAZOLE CREAM 15 GM TOPICAL SCH ×2 (08:59→19:48)
[2016-05-14] MEDS: ARTIFICIAL TEARS OPTH OINT 3.5 APPLIC/3.5 GM TUBO EACH EYE SCH ×2 (08:59→19:48)
[2016-05-14] MEDS: POLYETHYLENE GLYCOL 17 GM PKG PO SCH ×2 (08:59→19:50)
[2016-05-14] MEDS: SENNOSIDES SYRUP 8.8 MG/5 ML CUP PO/TUBE SCH ×2 (09:00→19:50)
[2016-05-14] MEDS: BUMETANIDE INJ 1 MG/4 ML VIAL IV PUSH SCH (09:00)
[2016-05-14] MEDS: ACETAMINOPHEN/HYDROcodone 325 MG/5 MG TAB PO SCH ×2 (09:00→19:50)
[2016-05-14] MEDS: BENEPROTEIN POWDER 1 PACK G-TUBE SCH ×3 (09:00→18:00)
[2016-05-14] MEDS: DOCUSATE SODIUM 100 MG/10 ML UDC PO SCH ×2 (09:00→19:46)
[2016-05-14] MEDS: fentaNYL 25 MCG/HR PATCH TD SCH ×2 (09:00→11:22)
[2016-05-14] MEDS: REMOVE OLD PATCH T-DERMAL SCH (09:00)
[2016-05-14] MEDS: QUEtiapine FUMARATE 25 MG TAB PO SCH ×2 (09:01→19:46)
[2016-05-14] MEDS: LACTOBACILLUS ACIDOPHILUS TAB PO SCH ×3 (09:01→18:14)
[2016-05-14] MEDS: INSULIN DETEMIR 100 UNITS/ML VIAL SQ SCH ×2 (09:02→19:46)
[2016-05-14] MEDS: POTASSIUM CHLORIDE 10 MEQ CONTROLLED RELEASE TAB PO SCH (09:03)
[2016-05-14] MEDS: SODIUM CHLORIDE 0.9% FLUSH 5 ML FLUSH IVF SCH (09:04)
[2016-05-14] MEDS: CHLORHEXIDINE 0.12% (ORAL KIT) 15 ML CUP MT SCH ×2 (09:06→20:55)
--- NOTE | 2016-05-14 12:23 | HHI.PR ---
Subjective Remarks No abdominal pain. no feevr or chills. Pain is controlled by meds. Feels sleepy. Satting well. Objective Vitals Vital Signs Date Time Temp Pulse Resp B/P Pulse Ox O2 Delivery O2 Flow Rate FiO2 05/14/16 08:19 94 T-piece 6.00 40 05/14/16 08:00 101 05/14/16 08:00 99.0 101 17 134/78 93 05/14/16 07:00 96 T-Piece 40 05/14/16 06:00 102 05/14/16 04:00 99.3 122 20 137/67 93 05/14/16 04:00 122 05/14/16 02:00 104 05/14/16 00:25 94 T-piece 6.00 40 05/14/16 00:00 107 05/14/16 00:00 99.9 107 19 117/71 91 05/13/16 22:14 20 05/13/16 22:00 114 05/13/16 20:00 100.0 107 23 147/74 94 05/13/16 20:00 107 05/13/16 19:00 94 T-Piece 40 05/13/16 18:00 110 05/13/16 16:00 99.3 109 20 153/74 97 05/13/16 16:00 109 05/13/16 14:00 111 I/O 05/13/16 05/13/16 05/13/16 05/14/16 05/14/16 05/14/16 07:00 15:00 23:00 07:00 15:00 23:00 Intake Total 1207 ml 1280 ml 799 ml 731 ml Output Total 195 ml 1400 ml 400 ml 450 ml Balance 1012 ml -120 ml 399 ml 281 ml Intake Oral 750 ml 500 ml 200 ml 200 ml IV Total 33 ml 41 ml 41 ml 34 ml Tube Feeding 249 ml 359 ml 358 ml 297 ml Tube Irrigant 180 ml Other 175 ml 200 ml 200 ml 200 ml Output Urine Total 195 ml 1400 ml 400 ml 450 ml # Bowel Movements 0 0 0 1 Result Diagram: 05/13/16 0431 05/13/16 0431 Imaging Last Impressions Chest X-Ray 05/10/16 0000 Signed Impressions: Service Date/Time: May 02:31 - CONCLUSION: 1. Hypoinflation with left perihilar atelectasis. Lungs otherwise appear clear. 2. Compensated cardiomegaly. Arthur Kennedy MD Liver Ultrasound 05/09/16 0000 Signed Impressions: Service Date/Time: Monday, May 09, 2016 22:28 - CONCLUSION: 1. Enlarged, fatty liver. 2. Small stones or tumefactive sludge adherent to one of the gallbladder arcos. 3. Splenomegaly. 4. Pancreas is obscured by overlying bowel gas and patient's body habitus. Arthur Kennedy MD Abdomen X-Ray 05/01/16 0000 Signed Impressions: Service Date/Time: Sunday, May 01, 2016 17:28 - CONCLUSION: No evidence of obstruction. Feeding tube overlies the distal stomach, May have to be advanced slightly to reach the duodenum. Nick Jon MD Chest CT 03/28/16 0836 Signed Impressions: Service Date/Time: Monday, March 28, 2016 09:57 - CONCLUSION: Development areas of air bronchograms and consolidation more prominent in the right and left posterior basilar segments of the lower lobes. ET tube above the chanelle. Bernard Hartman MD CT Angiography 03/24/16 1121 Signed Impressions: Service Date/Time: Thursday, March 24, 2016 12:47 - CONCLUSION: 1. There is respiratory motion artifact but no PE is identified through most of the segmental level pulmonary arteries. 2. Mildly enlarged main pulmonary artery may indicate pulmonary arterial hypertension. 3. 11 mm left lower lobe noncalcified pulmonary nodule. Suggest correlation with any prior imaging studies that could confirm longer-term stability. If none are available consider short-term followup noncontrast chest CT in approximately 3 months. Ubaldo Rodas MD Objective Remarks GENERAL: 50-year-old morbidly obese male, chronically ill, with tracheostomy, alert and oriented interactive. SKIN: Integrity intact. Warm and dry. HEAD: Atraumatic. Normocephalic. EYES: Pupils equal round. ENT: NG tube in place. Tracheostomy in situ no drainage or erythema around the site NECK: Large neck. Trachea midline, there is 2x2 cm wound at the collar anterior related to pressure/friction from collar, nonbleeding, optifoam in place. CARDIOVASCULAR: Distant heart sounds. RRR. S1, S2. No S4 or murmurs. RESPIRATORY: Tracheostomy. Breath sounds equal bilaterally. Diminished breath sounds due to body habitus. GASTROINTESTINAL: Abdomen soft, obese, nontender. Severe central obesity ,PEG tube without erythema or drainage MUSCULOSKELETAL: Extremities with trace to 1+ nonpitting bilateral lower extremity edema. NEUROLOGICAL: Alert. Follows commands, moves extremities 4. Date of Insertion: May 03, 2016 Date of Insertion: Apr 02, 2016 Date of Removal: May 03, 2016 Line: PICC Side: Left Location: Antecubital A/P Assessment and Plan Transaminitis Abd pain Follow trend of LFT. Reconsulted GI, appreciate recommendations. Liver US shows fatty liver. Small stones or tumefactive sludge adherent to one of the gallbladder arcos. 3. Splenomegaly. Avoid liver toxicity drugs. Check serology. Hep panel negative GI following. Diabetes mellitus SSI for glycemic control (high scale) 30 units sliding scale insulin scale insulin in the past 24 hours, decrease Levemir insulin 35 U Q12 as BS is controlled and levemir was held Acute hypoxemic respiratory failure on T piece tolerates well J[facility] History of staph aureus pneumonia/HCAP ARDS Trach collar with oxygen support to keep sat >92%. Bronchodilators every 6 hours and every 2 hours as needed Consult pulmonary program for chronic respiratory failure Wound on anterior neck 2/2 collar, patient has a short and large neck. Optifoam in place. Apply bacitracin, wound cultures. Consult wound care. Mild MR/TR. Monitor HR and BP keep MAP>65mmHg 2-D echo 03/26 EF 60%. No regional wall motion abnormality. Mild MR/TR. Hypokalemia Hypernatremia-resolved Hypophosphatemia Monitor renal function, I/O's, electrolytes replacement per protocol. Urine output 625cc/per 12 hours Bumex 0.5mg/day Constipation-resolved Moderate protein calorie malnutrition Nausea and vomiting Flatulence: Give simethicone On Glucerna 1.5@45ml/hr with 1 scoop whey protein 3 times a day, no residual Protonix 40mg daily On Reglan 10mg Q8, Senna and Colace twice a day.Discontinue MiraLAX twice a day and lactulose 4 times a day. PEG tube placement- 05/03 Zofran 4 mg every 6 hours when necessary Likely SERENITY Toxic metabolic encephalopathy-resolved Off Precedex infusion (05/04) Continue Norris 5/325mg every 6hrs scheduled, fentanyl patch 25mcgs, and Shauna 5mg PRN, fentanyl patch 25 mcgs q 3 days-will begin to wean narcotics Seroquel 25mg BID initiated 05/04 Acetaminophen for fever Staph aureus pneumonia Possible staph bacteremia Pertinent culture 04/27 - pansensitive staph aureus 04/27 blood cultures 2 negative 04/25 - urine -no growth 04/19 - blood cultures 2 out of 4 - staph aureus 04/19 - sputum - staph aureus 04/08 - sputum - staph aureus 04/03 - sputum - staph aureus 03/30 - sputum- -staph aureus 03/27 - sputum - staph aureus 03/26 - blood - staph hominis On vancomycin 2 g IV every 12 are since 04/19 - 04/29 Azactam 04/27 through 04/29 Finished clindamycin ID specialist consulted, Dr. Painter, appreciate recommendations. Finished course of abx, ID specialist signed off. Leukocytosis Monitor CBC/coags Monitor WBC 11.7, unchanged Labs every 3 days, unless clinically indicated Morbid obesity BMI of 51.8 Weight loss encouraged. DVT, GI prophylaxis -Bilateral lower extremity SCDs. IV Protonix 40 mg daily. Lovenox 40 mg sq BID LINES: -Left upper extremity PICC line placed 04/15-05/04. Peripheral IVs x 2 Discharge plan: Case management has been consulted for discharge plan. The patient T piece trials successful for 48 hours plans for LTAC transfer. Discussed with the case management, very difficult discharge, no LTAC facility will take patient, currently is looking for SNF. [id number] signed. Whitney Bejarano MD May 14, 2016 12:23
--- NOTE | 2016-05-14 15:14 | HHI.GIFU ---
Subjective Remarks Up in chair, feels better,still some mild abdominal tenderness and back pain ( Tabatha Burr) Objective Vitals I&O Vital Signs Date Time Temp Pulse Resp B/P Pulse Ox O2 Delivery O2 Flow Rate FiO2 05/14/16 14:00 108 05/14/16 12:00 99.3 109 25 88/57 93 05/14/16 12:00 109 05/14/16 10:00 107 05/14/16 08:19 94 T-piece 6.00 40 05/14/16 08:00 101 05/14/16 08:00 99.0 101 17 134/78 93 05/14/16 07:00 96 T-Piece 40 05/14/16 06:00 102 05/14/16 04:00 99.3 122 20 137/67 93 05/14/16 04:00 122 05/14/16 02:00 104 05/14/16 00:25 94 T-piece 6.00 40 05/14/16 00:00 107 05/14/16 00:00 99.9 107 19 117/71 91 05/13/16 22:14 20 05/13/16 22:00 114 05/13/16 20:00 100.0 107 23 147/74 94 05/13/16 20:00 107 05/13/16 19:00 94 T-Piece 40 05/13/16 18:00 110 05/13/16 16:00 99.3 109 20 153/74 97 05/13/16 16:00 109 I/O 05/13/16 05/13/16 05/13/16 05/14/16 05/14/16 05/14/16 07:00 15:00 23:00 07:00 15:00 23:00 Intake Total 1207 ml 1280 ml 799 ml 731 ml 855 ml Output Total 195 ml 1400 ml 400 ml 450 ml 1200 ml Balance 1012 ml -120 ml 399 ml 281 ml -345 ml Intake Oral 750 ml 500 ml 200 ml 200 ml 300 ml IV Total 33 ml 41 ml 41 ml 34 ml 50 ml Tube Feeding 249 ml 359 ml 358 ml 297 ml 305 ml Tube Irrigant 180 ml Other 175 ml 200 ml 200 ml 200 ml 200 ml Output Urine Total 195 ml 1400 ml 400 ml 450 ml 1200 ml # Voids 1 # Bowel Movements 0 0 0 1 0 Laboratory Date/Time Procedure Status Source Growth 05/12/16 13:31 Gram Stain - Final Resulted Wound Neck 05/12/16 13:31 Wound Culture - Preliminary Resulted Wound Neck MODERATE GROWTH NORMAL SKIN MARITZA... Imaging Last Impressions Chest X-Ray 05/10/16 0000 Signed Impressions: Service Date/Time: May 02:31 - CONCLUSION: 1. Hypoinflation with left perihilar atelectasis. Lungs otherwise appear clear. 2. Compensated cardiomegaly. Arthur Kennedy MD Liver Ultrasound 05/09/16 0000 Signed Impressions: Service Date/Time: Monday, May 09, 2016 22:28 - CONCLUSION: 1. Enlarged, fatty liver. 2. Small stones or tumefactive sludge adherent to one of the gallbladder arcos. 3. Splenomegaly. 4. Pancreas is obscured by overlying bowel gas and patient's body habitus. Arthur Kennedy MD Abdomen X-Ray 05/01/16 0000 Signed Impressions: Service Date/Time: Sunday, May 01, 2016 17:28 - CONCLUSION: No evidence of obstruction. Feeding tube overlies the distal stomach, May have to be advanced slightly to reach the duodenum. Nick Jon MD Chest CT 03/28/16 0836 Signed Impressions: Service Date/Time: Monday, March 28, 2016 09:57 - CONCLUSION: Development areas of air bronchograms and consolidation more prominent in the right and left posterior basilar segments of the lower lobes. ET tube above the chanelle. Bernard Hartman MD CT Angiography 03/24/16 1121 Signed Impressions: Service Date/Time: Thursday, March 24, 2016 12:47 - CONCLUSION: 1. There is respiratory motion artifact but no PE is identified through most of the segmental level pulmonary arteries. 2. Mildly enlarged main pulmonary artery may indicate pulmonary arterial hypertension. 3. 11 mm left lower lobe noncalcified pulmonary nodule. Suggest correlation with any prior imaging studies that could confirm longer-term stability. If none are available consider short-term followup noncontrast chest CT in approximately 3 months. Ubaldo Rodas MD Physical Exam HEENT: Normocephalic; atraumatic; no jaundice. NECK: trach in place CHEST: Coarse BS bilaterally, decreased at bases. T Bar CARDIAC: Regular rate and rhythm ABDOMEN: soft, obese, nondistended, nontender; bowel sounds are present in all four quadrants. PEG tube EXTREMITIES: Generalized edema. SKIN: Normal; no rash; no jaundice. 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 Last AST 150, ALT 506, Alk Phosph 78. bili 0.4 LFTs trending down, will recheck in am. Patient denies nausea or vomiting or abdomen pain Liver Ultrasound (05/09/16)----> 1. Enlarged, fatty liver. 2. Small stones or tumefactive sludge adherent to one of the gallbladder arcos. 3. Splenomegaly. 4. Pancreas is obscured by overlying bowel gas and patient's body habitus. Ferritin 741. Iron saturation 34.6. AFP 1.3. Ceruloplasmin negative, Alpha 1 Antitrypsin 189, YUN neg, ASMA neg, AMA pending, Hepatitis negative. Likely related to fatty liver and medications. - Dysphagia/ENT- S/P EGD/PEG on (05/03/16). Tolerating TF. Plan: - TF per dietary recommendation - Await AMA - LFTs in am - Avoid hepatotoxic meds - Patient seen and examined by Dr De La Cruz and myself and this note is written on his behalf. (Tabatha Burr) Physician Comments Seen and examined with CORPORATE TUTOR< LFTs improving slowly. Underlying fatty liver. Monitor labs, Serologies -ve so far. Gi will sign off, reconsult PRN. Fu with gi upon dc. Thank you (Wilfredo De La Cruz MD) Tabatha Burr May 14, 2016 15:14 Wilfredo De La Cruz MD May 14, 2016 18:48
--- NOTE | 2016-05-14 15:33 | HHI.PR ---
Subjective Remarks Off the vent up in chair on T piece Objective Vital Signs Date Time Temp Pulse Resp B/P Pulse Ox O2 Delivery O2 Flow Rate FiO2 05/14/16 14:00 108 05/14/16 12:00 99.3 109 25 88/57 93 05/14/16 12:00 109 05/14/16 10:00 107 05/14/16 08:19 94 T-piece 6.00 40 05/14/16 08:00 101 05/14/16 08:00 99.0 101 17 134/78 93 05/14/16 07:00 96 T-Piece 40 05/14/16 06:00 102 05/14/16 04:00 99.3 122 20 137/67 93 05/14/16 04:00 122 05/14/16 02:00 104 05/14/16 00:25 94 T-piece 6.00 40 05/14/16 00:00 107 05/14/16 00:00 99.9 107 19 117/71 91 05/13/16 22:14 20 05/13/16 22:00 114 05/13/16 20:00 100.0 107 23 147/74 94 05/13/16 20:00 107 05/13/16 19:00 94 T-Piece 40 05/13/16 18:00 110 05/13/16 16:00 99.3 109 20 153/74 97 05/13/16 16:00 109 I/O 05/13/16 05/13/16 05/13/16 05/14/16 05/14/16 05/14/16 07:00 15:00 23:00 07:00 15:00 23:00 Intake Total 1207 ml 1280 ml 799 ml 731 ml 855 ml Output Total 195 ml 1400 ml 400 ml 450 ml 1200 ml Balance 1012 ml -120 ml 399 ml 281 ml -345 ml Intake Oral 750 ml 500 ml 200 ml 200 ml 300 ml IV Total 33 ml 41 ml 41 ml 34 ml 50 ml Tube Feeding 249 ml 359 ml 358 ml 297 ml 305 ml Tube Irrigant 180 ml Other 175 ml 200 ml 200 ml 200 ml 200 ml Output Urine Total 195 ml 1400 ml 400 ml 450 ml 1200 ml # Voids 1 # Bowel Movements 0 0 0 1 0 Result Diagram: 05/13/1643005/13/16430 Objective Remarks GENERAL: SKIN: Warm and dry. HEAD: Atraumatic. Normocephalic. EYES: Pupils equal and round. No scleral icterus. No injection or drainage. ENT: No nasal bleeding or discharge. Mucous membranes pink and moist. NECK: Trachea midline. No JVD. CARDIOVASCULAR: Regular rate and rhythm. RESPIRATORY: No accessory muscle use. Clear to auscultation. Breath sounds equal bilaterally. GASTROINTESTINAL: Abdomen soft, non-tender, nondistended. Hepatic and splenic margins not palpable. MUSCULOSKELETAL: Extremities without clubbing, cyanosis, or edema. No obvious deformities. NEUROLOGICAL: Awake and alert. No obvious cranial nerve deficits. Motor grossly within normal limits. Five out of 5 muscle strength in the arms and legs. Normal speech. PSYCHIATRIC: Appropriate mood and affect; insight and judgment normal. Assessment and Plan Assessment and Plan now on T piece RESPIRATORY FAILURE SEPSIS ARDS JACOB/CSA PLAN PULM TOILET INCREASE Activity Orlando Perry MD May 14, 2016 15:33
[2016-05-14] MEDS: PANTOPRAZOLE SODIUM 40 MG VIAL IV PUSH SCH (18:14)
[2016-05-15] VITALS (15 sets, daily range): BP systolic 105–138; BP diastolic 69–83; PULSE 20–122; RESP 15–23; TEMP 98.3–99.2; O2SAT 91–100
[2016-05-15] MEDS: ARTIFICIAL TEARS OPTH SOLN 15 ML BTL EACH EYE SCH ×6 (01:25→22:00)
[2016-05-15 03:49] LABS: MITOCHONDRIAL ABS LESS THAN 20.0 U (())
[2016-05-15] MEDS: INSULIN NovoLIN REGULAR SUPPLEMENTAL SCALE SQ SCH ×4 (05:59→21:00)
[2016-05-15] MEDS: METOCLOPRAMIDE HCL 10 MG/2 ML VIAL IV PUSH SCH ×3 (05:59→22:00)
[2016-05-15] MEDS: ENOXAPARIN SODIUM 40 MG/0.4 ML SYRINGE SQ SCH ×2 (05:59→17:26)
[2016-05-15] MEDS: FREE WATER G-TUBE SCH ×4 (06:00→17:25)
[2016-05-15 06:31] LABS: AUTOMATED NEUTROPHIL # 7.1 TH/MM3 (1.8-7.7); BASOPHIL # 0.1 TH/MM3 (0-0.2); BASOPHIL % 0.8 % (0.0-2.0); EOSINOPHIL # 0.2 TH/MM3 (0-0.4); EOSINOPHIL % 2.1 % (0.0-4.0); HEMATOCRIT 36.4 % (39.0-51.0); MEAN CELL VOLUME 82.7 FL (80.0-100.0); MEAN CORPUSCULAR HEMOGLOBIN 28.4 PG (27.0-34.0); MEAN CORPUSCULAR HGB CONC 34.3 % (32.0-36.0); MONO % 5.8 % (0.0-8.0); NEUT % 71.3 % (16.0-70.0); PLATELET COUNT 261 TH/MM3 (150-450); RED CELL DISTRIBUTION WIDTH 17.1 % (11.6-17.2)
[2016-05-15 06:36] LABS: HEMO FLAGS AUTO DIFF
[2016-05-15 07:01] LABS: ANION GAP 9 MEQ/L (5-15); AST (GOT) 38 U/L (15-37); BICARBONATE 36.4 MEQ/L (21.0-32.0); BLOOD UREA NITROGEN 10 MG/DL (7-18); CHLORIDE 90 MEQ/L (98-107); GLOMERULAR FILTRATION RATE 209 ML/MIN (>89); POTASSIUM 3.7 MEQ/L (3.5-5.1); SODIUM (NA) 135 MEQ/L (136-145)
[2016-05-15 07:04] LABS: ALKALINE PHOSPHATASE 90 U/L (45-117); ALT (GPT) 216 U/L (12-78); TOTAL BILIRUBIN ADULT 0.6 MG/DL (0.2-1.0)
[2016-05-15 07:54] LABS: BANDS 9 % (0-6); BASOPHILS 1 % (0-2); METAMYELOCYTES 3 % (0-1); MYELOCYTES 1 % (0-0); NEUTROPHIL # MANUAL DIFF 7.9 TH/MM3 (1.8-7.7); PLATELET ESTIMATE SMEAR NORMAL (NORMAL); PLATELET MORPHOLOGY NORMAL (NORMAL); POLYS (SEG NEUTROPHILS) 66 % (16-70); SCAN/DIFF FINAL DIFF MANUAL; WBC DIFF SAMPLE 100
--- NOTE | 2016-05-15 07:54 | HHI.PR ---
Subjective Remarks Less abdominal pain. No n/v/d/c. No fever or chills overnight. LFTs improving Objective Vitals Vital Signs Date Time Temp Pulse Resp B/P Pulse Ox O2 Delivery O2 Flow Rate FiO2 05/15/16 06:30 93 T-piece 40 05/15/16 06:00 120 05/15/16 04:00 99.0 113 23 124/69 92 05/15/16 04:00 122 05/15/16 02:00 107 05/15/16 00:00 110 05/15/16 00:00 98.9 20 20 113/76 91 05/14/16 22:00 115 05/14/16 20:00 112 05/14/16 20:00 99.1 112 22 119/67 93 05/14/16 19:38 97 Nasal Cannula 6.00 05/14/16 19:00 93 T-Piece 28 05/14/16 18:00 116 05/14/16 16:00 98.2 110 22 100/78 97 05/14/16 16:00 110 05/14/16 14:00 108 05/14/16 12:00 99.3 109 25 88/57 93 05/14/16 12:00 109 05/14/16 10:00 107 05/14/16 08:19 94 T-piece 6.00 40 05/14/16 08:00 101 05/14/16 08:00 99.0 101 17 134/78 93 I/O 05/14/16 05/14/16 05/14/16 05/15/16 05/15/16 05/15/16 07:00 15:00 23:00 07:00 15:00 23:00 Intake Total 731 ml 855 ml 1017 ml 1065 ml Output Total 450 ml 1200 ml 800 ml 450 ml Balance 281 ml -345 ml 217 ml 615 ml Intake Oral 200 ml 300 ml 350 ml 1065 ml IV Total 34 ml 50 ml 26 ml 0 ml Tube Feeding 297 ml 305 ml 391 ml Other 200 ml 200 ml 250 ml Output Urine Total 450 ml 1200 ml 800 ml 450 ml # Voids 1 # Bowel Movements 1 0 0 0 Result Diagram: 05/15/16 0538 05/15/16 0538 Imaging Last Impressions Chest X-Ray 05/10/16 0000 Signed Impressions: Service Date/Time: May 02:31 - CONCLUSION: 1. Hypoinflation with left perihilar atelectasis. Lungs otherwise appear clear. 2. Compensated cardiomegaly. Arthur Kennedy MD Liver Ultrasound 05/09/16 0000 Signed Impressions: Service Date/Time: Monday, May 09, 2016 22:28 - CONCLUSION: 1. Enlarged, fatty liver. 2. Small stones or tumefactive sludge adherent to one of the gallbladder arcos. 3. Splenomegaly. 4. Pancreas is obscured by overlying bowel gas and patient's body habitus. Arthur Kennedy MD Abdomen X-Ray 05/01/16 0000 Signed Impressions: Service Date/Time: Sunday, May 01, 2016 17:28 - CONCLUSION: No evidence of obstruction. Feeding tube overlies the distal stomach, May have to be advanced slightly to reach the duodenum. Nick Jon MD Chest CT 03/28/16 0836 Signed Impressions: Service Date/Time: Monday, March 28, 2016 09:57 - CONCLUSION: Development areas of air bronchograms and consolidation more prominent in the right and left posterior basilar segments of the lower lobes. ET tube above the chanelle. Bernard Hartman MD CT Angiography 03/24/16 1121 Signed Impressions: Service Date/Time: Thursday, March 24, 2016 12:47 - CONCLUSION: 1. There is respiratory motion artifact but no PE is identified through most of the segmental level pulmonary arteries. 2. Mildly enlarged main pulmonary artery may indicate pulmonary arterial hypertension. 3. 11 mm left lower lobe noncalcified pulmonary nodule. Suggest correlation with any prior imaging studies that could confirm longer-term stability. If none are available consider short-term followup noncontrast chest CT in approximately 3 months. Ubaldo Rodas MD Objective Remarks GENERAL: 50-year-old morbidly obese male, chronically ill, with tracheostomy, alert and oriented interactive. SKIN: Integrity intact. Warm and dry. HEAD: Atraumatic. Normocephalic. EYES: Pupils equal round. ENT: NG tube in place. Tracheostomy in situ no drainage or erythema around the site NECK: Large neck. Trachea midline, there is 2x2 cm wound at the collar anterior related to pressure/friction from collar, nonbleeding, optifoam in place. CARDIOVASCULAR: Distant heart sounds. RRR. S1, S2. No S4 or murmurs. RESPIRATORY: Tracheostomy. Breath sounds equal bilaterally. Diminished breath sounds due to body habitus. GASTROINTESTINAL: Abdomen soft, obese, nontender. Severe central obesity ,PEG tube without erythema or drainage MUSCULOSKELETAL: Extremities with trace to 1+ nonpitting bilateral lower extremity edema. NEUROLOGICAL: Alert. Follows commands, moves extremities 4. Date of Insertion: May 03, 2016 Date of Insertion: Apr 02, 2016 Date of Removal: May 03, 2016 Line: PICC Side: Left Location: Antecubital A/P Assessment and Plan Transaminitis. LFT improving. Abd pain Follow trend of LFT. Reconsulted GI, appreciate recommendations. Liver US shows fatty liver. Small stones or tumefactive sludge adherent to one of the gallbladder arcos. 3. Splenomegaly. Avoid liver toxicity drugs. Check serology. Hep panel negative GI following. Diabetes mellitus SSI for glycemic control (high scale) 30 units sliding scale insulin scale insulin in the past 24 hours, decrease Levemir insulin 35 U Q12 as BS is controlled and levemir was held Acute hypoxemic respiratory failure on T piece tolerates well [facility] History of staph aureus pneumonia/HCAP ARDS Trach collar with oxygen support to keep sat >92%. 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 Optifoam in place. Apply bacitracin. Wound cultures with normal sherine. Consult wound care, discussed with Nica from wound care, appreciate recommendations. Cleanse wound with NS and apply nonadhesive foam ag dressing over wound and change every other day and PRN for saturation or dislodgement. Mild MR/TR. Monitor HR and BP keep MAP>65mmHg 2-D echo 03/26 EF 60%. No regional wall motion abnormality. Mild MR/TR. Hypokalemia Hypernatremia-resolved Hypophosphatemia Monitor renal function, I/O's, electrolytes replacement per protocol. Urine output 625cc/per 12 hours Bumex 0.5mg/day Constipation-resolved Moderate protein calorie malnutrition Nausea and vomiting Flatulence: Give simethicone On Glucerna 1.5@45ml/hr with 1 scoop whey protein 3 times a day, no residual Protonix 40mg daily On Reglan 10mg Q8, Senna and Colace twice a day.Discontinue MiraLAX twice a day and lactulose 4 times a day. PEG tube placement- 05/03 Zofran 4 mg every 6 hours when necessary Likely SERENITY Toxic metabolic encephalopathy-resolved Off Precedex infusion (05/04) Continue [place] 5/325mg every 6hrs scheduled, fentanyl patch 25mcgs, and Shauna 5mg PRN, fentanyl patch 25 mcgs q 3 days-will begin to wean narcotics Seroquel 25mg BID initiated 05/04 Acetaminophen for fever Staph aureus pneumonia Possible staph bacteremia Pertinent culture 04/27 - pansensitive staph aureus 04/27 blood cultures 2 negative 04/25 - urine -no growth 04/19 - blood cultures 2 out of 4 - staph aureus 04/19 - sputum - staph aureus 04/08 - sputum - staph aureus 04/03 - sputum - staph aureus 03/30 - sputum- -staph aureus 03/27 - sputum - staph aureus 03/26 - blood - staph hominis On vancomycin 2 g IV every 12 are since 04/19 - 04/29 Azactam 04/27 through 04/29 Finished clindamycin ID specialist consulted, Dr. Painter, appreciate recommendations. Finished course of abx, ID specialist signed off. Leukocytosis Monitor CBC/coags Monitor WBC 11.7, unchanged Labs every 3 days, unless clinically indicated Morbid obesity BMI of 51.8 Weight loss encouraged. DVT, GI prophylaxis -Bilateral lower extremity SCDs. IV Protonix 40 mg daily. Lovenox 40 mg sq BID LINES: -Left upper extremity PICC line placed 04/15-05/04. Peripheral IVs x 2 Discharge plan: Case management has been consulted for discharge plan. The patient T piece trials successful for 48 hours plans for LTAC transfer. Discussed with the case management, very difficult discharge, no LTAC facility will take patient, currently is looking for SNF. [id number] signed. Whitney Bejarano MD May 15, 2016 07:54
[2016-05-15] MEDS: SENNOSIDES SYRUP 8.8 MG/5 ML CUP PO/TUBE SCH ×2 (09:00→21:00)
[2016-05-15] MEDS: DOCUSATE SODIUM 100 MG/10 ML UDC PO SCH ×2 (09:00→21:00)
[2016-05-15] MEDS: BENEPROTEIN POWDER 1 PACK G-TUBE SCH ×3 (09:00→17:25)
[2016-05-15] MEDS: POLYETHYLENE GLYCOL 17 GM PKG PO SCH ×2 (09:00→21:00)
[2016-05-15] MEDS: BUMETANIDE INJ 1 MG/4 ML VIAL IV PUSH SCH (10:11)
[2016-05-15] MEDS: POTASSIUM CHLORIDE 10 MEQ CONTROLLED RELEASE TAB PO SCH (10:11)
[2016-05-15] MEDS: LACTOBACILLUS ACIDOPHILUS TAB PO SCH ×3 (10:11→17:26)
[2016-05-15] MEDS: ACETAMINOPHEN/HYDROcodone 325 MG/5 MG TAB PO SCH ×2 (10:11→21:00)
[2016-05-15] MEDS: QUEtiapine FUMARATE 25 MG TAB PO SCH ×2 (10:11→21:00)
[2016-05-15] MEDS: SODIUM CHLORIDE 0.9% FLUSH 5 ML FLUSH IVF SCH (10:13)
[2016-05-15] MEDS: ARTIFICIAL TEARS OPTH OINT 3.5 APPLIC/3.5 GM TUBO EACH EYE SCH ×2 (10:13→21:00)
[2016-05-15] MEDS: BETAMETHASONE/CLOTRIMAZOLE CREAM 15 GM TOPICAL SCH ×2 (10:14→21:00)
[2016-05-15] MEDS: NYSTATIN 100,000 U/GM PWD 15 GM BTL TOPICAL SCH ×2 (10:15→21:00)
[2016-05-15] MEDS: INSULIN DETEMIR 100 UNITS/ML VIAL SQ SCH ×2 (10:17→21:00)
[2016-05-15] MEDS: PANTOPRAZOLE SODIUM 40 MG VIAL IV PUSH SCH (17:26)
--- NOTE | 2016-05-15 19:31 | HHI.PR ---
Subjective Remarks Off the vent up in chair on T piece PLAN INCREASE ACTIVITY PULM, TOILET Objective Vital Signs Date Time Temp Pulse Resp B/P Pulse Ox O2 Delivery O2 Flow Rate FiO2 05/15/16 18:00 116 05/15/16 16:00 112 05/15/16 16:00 98.3 122 20 109/71 99 05/15/16 14:00 113 05/15/16 12:00 110 05/15/16 12:00 98.9 110 20 105/75 99 05/15/16 10:00 110 05/15/16 08:06 91 T-piece 40 05/15/16 08:00 98.3 122 20 138/83 94 05/15/16 08:00 103 05/15/16 07:00 93 T-Piece 28 05/15/16 06:30 93 T-piece 40 05/15/16 06:00 120 05/15/16 04:00 99.0 113 23 124/69 92 05/15/16 04:00 122 05/15/16 02:00 107 05/15/16 00:00 110 05/15/16 00:00 98.9 20 20 113/76 91 05/14/16 22:00 115 05/14/16 20:00 112 05/14/16 20:00 99.1 112 22 119/67 93 05/14/16 19:38 97 Nasal Cannula 6.00 I/O 05/14/16 05/14/16 05/14/16 05/15/16 05/15/16 05/15/16 07:00 15:00 23:00 07:00 15:00 23:00 Intake Total 731 ml 855 ml 1017 ml 1065 ml 1243 ml Output Total 450 ml 1200 ml 800 ml 450 ml 1200 ml Balance 281 ml -345 ml 217 ml 615 ml 43 ml Intake Oral 200 ml 300 ml 350 ml 1065 ml 800 ml IV Total 34 ml 50 ml 26 ml 0 ml 50 ml Tube Feeding 297 ml 305 ml 391 ml 293 ml Other 200 ml 200 ml 250 ml 100 ml Output Urine Total 450 ml 1200 ml 800 ml 450 ml 1200 ml # Voids 1 1 # Bowel Movements 1 0 0 0 2 Result Diagram: 05/15/16 0538 05/15/16537 Objective Remarks GENERAL: SKIN: Warm and dry. HEAD: Atraumatic. Normocephalic. EYES: Pupils equal and round. No scleral icterus. No injection or drainage. ENT: No nasal bleeding or discharge. Mucous membranes pink and moist. NECK: Trachea midline. No JVD. CARDIOVASCULAR: Regular rate and rhythm. RESPIRATORY: No accessory muscle use. Clear to auscultation. Breath sounds equal bilaterally. GASTROINTESTINAL: Abdomen soft, non-tender, nondistended. Hepatic and splenic margins not palpable. MUSCULOSKELETAL: Extremities without clubbing, cyanosis, or edema. No obvious deformities. NEUROLOGICAL: Awake and alert. No obvious cranial nerve deficits. Motor grossly within normal limits. Five out of 5 muscle strength in the arms and legs. Normal speech. PSYCHIATRIC: Appropriate mood and affect; insight and judgment normal. Assessment and Plan Assessment and Plan now on T piece RESPIRATORY FAILURE SEPSIS ARDS JACOB/CSA PLAN PULM TOILET INCREASE Activity Orlando Perry MD May 15, 2016 19:31
[2016-05-15] MEDS: CHLORHEXIDINE 0.12% (ORAL KIT) 15 ML CUP MT SCH (20:00)
[2016-05-16] VITALS (16 sets, daily range): BP systolic 116–142; BP diastolic 57–74; PULSE 104–117; RESP 13–28; TEMP 98.3–99.3; O2SAT 90–100
[2016-05-16] MEDS: ARTIFICIAL TEARS OPTH SOLN 15 ML BTL EACH EYE SCH ×6 (02:00→20:01)
[2016-05-16 04:45] LABS: ALT (GPT) 162 U/L (12-78); ANION GAP 9 MEQ/L (5-15); AST (GOT) 31 U/L (15-37); BICARBONATE 34.8 MEQ/L (21.0-32.0); BLOOD UREA NITROGEN 7 MG/DL (7-18); CHLORIDE 92 MEQ/L (98-107); GLOMERULAR FILTRATION RATE 257 ML/MIN (>89); POTASSIUM 3.6 MEQ/L (3.5-5.1); SODIUM (NA) 136 MEQ/L (136-145)
[2016-05-16 04:47] LABS: ALKALINE PHOSPHATASE 82 U/L (45-117); TOTAL BILIRUBIN ADULT 0.7 MG/DL (0.2-1.0)
[2016-05-16] MEDS: METOCLOPRAMIDE HCL 10 MG/2 ML VIAL IV PUSH SCH ×3 (05:59→20:06)
[2016-05-16] MEDS: FREE WATER G-TUBE SCH ×5 (05:59→23:51)
[2016-05-16] MEDS: ENOXAPARIN SODIUM 40 MG/0.4 ML SYRINGE SQ SCH ×2 (06:00→17:30)
[2016-05-16] MEDS: INSULIN NovoLIN REGULAR SUPPLEMENTAL SCALE SQ SCH ×4 (06:00→19:59)
[2016-05-16] MEDS: CHLORHEXIDINE 0.12% (ORAL KIT) 15 ML CUP MT SCH ×2 (08:00→20:01)
[2016-05-16] MEDS: BETAMETHASONE/CLOTRIMAZOLE CREAM 15 GM TOPICAL SCH ×2 (09:00→20:00)
[2016-05-16] MEDS: ARTIFICIAL TEARS OPTH OINT 3.5 APPLIC/3.5 GM TUBO EACH EYE SCH ×2 (09:00→20:00)
[2016-05-16] MEDS: ACETAMINOPHEN/HYDROcodone 325 MG/5 MG TAB PO SCH ×2 (09:00→19:59)
[2016-05-16] MEDS: POTASSIUM CHLORIDE 10 MEQ CONTROLLED RELEASE TAB PO SCH (09:00)
[2016-05-16] MEDS: BUMETANIDE INJ 1 MG/4 ML VIAL IV PUSH SCH (09:52)
[2016-05-16] MEDS: SODIUM CHLORIDE 0.9% FLUSH 5 ML FLUSH IVF SCH ×3 (09:54→17:32)
[2016-05-16] MEDS: DOCUSATE SODIUM 100 MG/10 ML UDC PO SCH ×2 (09:55→19:58)
[2016-05-16] MEDS: BENEPROTEIN POWDER 1 PACK G-TUBE SCH ×3 (09:56→17:28)
[2016-05-16] MEDS: POTASSIUM CL 40 MEQ/30 ML LIQ UDC PO/TUBE PRN (09:57)
[2016-05-16] MEDS: LACTOBACILLUS ACIDOPHILUS TAB PO SCH ×3 (09:58→17:29)
[2016-05-16] MEDS: POLYETHYLENE GLYCOL 17 GM PKG PO SCH ×2 (09:59→20:00)
[2016-05-16] MEDS: INSULIN DETEMIR 100 UNITS/ML VIAL SQ SCH ×2 (10:02→19:59)
[2016-05-16] MEDS: QUEtiapine FUMARATE 25 MG TAB PO SCH ×2 (10:02→19:58)
[2016-05-16] MEDS: SENNOSIDES SYRUP 8.8 MG/5 ML CUP PO/TUBE SCH ×2 (10:02→19:58)
[2016-05-16] MEDS: NYSTATIN 100,000 U/GM PWD 15 GM BTL TOPICAL SCH ×2 (10:03→20:00)
--- NOTE | 2016-05-16 10:29 | HHI.PR ---
Subjective Remarks Complaining of wound in the neck, will add silvadene. Pain is controlled by meds. No n/v/d/c. Denies chest pain, sob. Objective Vitals Vital Signs Date Time Temp Pulse Resp B/P Pulse Ox O2 Delivery O2 Flow Rate FiO2 05/16/16 08:17 97 T-piece 6.00 35 05/16/16 06:00 112 05/16/16 04:00 99.3 107 16 142/69 92 05/16/16 04:00 110 05/16/16 02:00 111 05/16/16 00:08 96 T-piece 6.00 35 05/16/16 00:00 99.0 111 13 137/66 91 05/16/16 00:00 109 05/15/16 22:00 109 05/15/16 20:00 99.2 109 15 134/77 97 05/15/16 20:00 112 05/15/16 19:30 100 T-piece 6.00 40 05/15/16 19:00 97 T-Piece 28 05/15/16 18:00 116 05/15/16 16:00 112 05/15/16 16:00 98.3 122 20 109/71 99 05/15/16 14:00 113 05/15/16 12:00 110 05/15/16 12:00 98.9 110 20 105/75 99 I/O 05/15/16 05/15/16 05/15/16 05/16/16 05/16/16 05/16/16 07:00 15:00 23:00 07:00 15:00 23:00 Intake Total 1065 ml 1243 ml 350 ml 1293 ml Output Total 450 ml 1200 ml 750 ml 750 ml Balance 615 ml 43 ml -400 ml 543 ml Intake Oral 1065 ml 800 ml 350 ml 1050 ml IV Total 0 ml 50 ml 0 ml 243 ml Tube Feeding 293 ml Other 100 ml Output Urine Total 450 ml 1200 ml 750 ml 750 ml # Voids 1 0 # Bowel Movements 0 2 0 Result Diagram: 05/15/16 0538 05/16/16 0336 Imaging Last Impressions Chest X-Ray 05/10/16 0000 Signed Impressions: Service Date/Time: May 02:31 - CONCLUSION: 1. Hypoinflation with left perihilar atelectasis. Lungs otherwise appear clear. 2. Compensated cardiomegaly. Arthur Kennedy MD Liver Ultrasound 05/09/16 0000 Signed Impressions: Service Date/Time: Monday, May 09, 2016 22:28 - CONCLUSION: 1. Enlarged, fatty liver. 2. Small stones or tumefactive sludge adherent to one of the gallbladder arcos. 3. Splenomegaly. 4. Pancreas is obscured by overlying bowel gas and patient's body habitus. Arthur Kennedy MD Abdomen X-Ray 05/01/16 0000 Signed Impressions: Service Date/Time: Sunday, May 01, 2016 17:28 - CONCLUSION: No evidence of obstruction. Feeding tube overlies the distal stomach, May have to be advanced slightly to reach the duodenum. Nick Jon MD Chest CT 03/28/16 0836 Signed Impressions: Service Date/Time: Monday, March 28, 2016 09:57 - CONCLUSION: Development areas of air bronchograms and consolidation more prominent in the right and left posterior basilar segments of the lower lobes. ET tube above the chanelle. Bernard Hartman MD CT Angiography 03/24/16 1121 Signed Impressions: Service Date/Time: Thursday, March 24, 2016 12:47 - CONCLUSION: 1. There is respiratory motion artifact but no PE is identified through most of the segmental level pulmonary arteries. 2. Mildly enlarged main pulmonary artery may indicate pulmonary arterial hypertension. 3. 11 mm left lower lobe noncalcified pulmonary nodule. Suggest correlation with any prior imaging studies that could confirm longer-term stability. If none are available consider short-term followup noncontrast chest CT in approximately 3 months. Ubaldo Rodas MD Objective Remarks GENERAL: 50-year-old morbidly obese male, chronically ill, with tracheostomy, alert and oriented interactive. SKIN: Integrity intact. Warm and dry. HEAD: Atraumatic. Normocephalic. EYES: Pupils equal round. ENT: NG tube in place. Tracheostomy in situ no drainage or erythema around the site NECK: Large neck. Trachea midline, there is 2x2 cm wound at the collar anterior related to pressure/friction from collar, nonbleeding, optifoam in place. CARDIOVASCULAR: Distant heart sounds. RRR. S1, S2. No S4 or murmurs. RESPIRATORY: Tracheostomy. Breath sounds equal bilaterally. Diminished breath sounds due to body habitus. GASTROINTESTINAL: Abdomen soft, obese, nontender. Severe central obesity ,PEG tube without erythema or drainage MUSCULOSKELETAL: Extremities with trace to 1+ nonpitting bilateral lower extremity edema. NEUROLOGICAL: Alert. Follows commands, moves extremities 4. Date of Insertion: May 03, 2016 Date of Insertion: Apr 02, 2016 Date of Removal: May 03, 2016 Line: PICC Side: Left Location: Antecubital A/P Assessment and Plan Transaminitis. LFT improving. Abd pain, improved Follow trend of LFT. Reconsulted GI, appreciate recommendations. Liver US shows fatty liver. Small stones or tumefactive sludge adherent to one of the gallbladder arcos. 3. Splenomegaly. Avoid liver toxicity drugs. Check serology. Hep panel negative GI following. Diabetes mellitus SSI for glycemic control (high scale) 30 units sliding scale insulin scale insulin in the past 24 hours, decrease Levemir insulin 35 U Q12 as BS is controlled and levemir was held Acute hypoxemic respiratory failure on T piece tolerates well [facility] History of staph aureus pneumonia/HCAP ARDS Trach collar with oxygen support to keep sat >92%. 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 Optifoam in place. Apply bacitracin. Wound cultures with normal sherine. Consult wound care, discussed with Nica from wound care, appreciate recommendations. Cleanse wound with NS and apply nonadhesive foam ag dressing over wound and change every other day and PRN for saturation or dislodgement. Add silvadene cream daily Mild MR/TR. Monitor HR and BP keep MAP>65mmHg 2-D echo 03/26 EF 60%. No regional wall motion abnormality. Mild MR/TR. Hypokalemia Hypernatremia-resolved Hypophosphatemia Monitor renal function, I/O's, electrolytes replacement per protocol. Urine output 625cc/per 12 hours Bumex 0.5mg/day Constipation-resolved Moderate protein calorie malnutrition Nausea and vomiting Flatulence: Give simethicone On Glucerna 1.5@45ml/hr with 1 scoop whey protein 3 times a day, no residual Protonix 40mg daily On Reglan 10mg Q8, Senna and Colace twice a day.Discontinue MiraLAX twice a day and lactulose 4 times a day. PEG tube placement- 05/03 Zofran 4 mg every 6 hours when necessary Likely SERENITY Toxic metabolic encephalopathy-resolved Off Precedex infusion (05/04) Continue [place] 5/325mg every 6hrs scheduled, fentanyl patch 25mcgs, and Shauna 5mg PRN, fentanyl patch 25 mcgs q 3 days-will begin to wean narcotics Seroquel 25mg BID initiated 05/04 Acetaminophen for fever Staph aureus pneumonia Possible staph bacteremia Pertinent culture 04/27 - pansensitive staph aureus 04/27 blood cultures 2 negative 04/25 - urine -no growth 04/19 - blood cultures 2 out of 4 - staph aureus 04/19 - sputum - staph aureus 04/08 - sputum - staph aureus 04/03 - sputum - staph aureus 03/30 - sputum- -staph aureus 03/27 - sputum - staph aureus 03/26 - blood - staph hominis On vancomycin 2 g IV every 12 are since 04/19 - 04/29 Azactam 04/27 through 04/29 Finished clindamycin ID specialist consulted, Dr. Painter, appreciate recommendations. Finished course of abx, ID specialist signed off. Leukocytosis Monitor CBC/coags Monitor WBC 11.7, unchanged Labs every 3 days, unless clinically indicated Morbid obesity BMI of 51.8 Weight loss encouraged. DVT, GI prophylaxis -Bilateral lower extremity SCDs. IV Protonix 40 mg daily. Lovenox 40 mg sq BID LINES: -Left upper extremity PICC line placed 04/15-05/04. Peripheral IVs x 2 Discharge plan: Case management has been consulted for discharge plan. The patient T piece trials successful for 48 hours plans for LTAC transfer. Discussed with the case management, very difficult discharge, no LTAC facility will take patient, currently is looking for SNF. [id number] signed. Discussed with the patient, nurse. Whitney Bejarano MD May 16, 2016 10:29
[2016-05-16] MEDS: SILVER SULFADIAZINE 1% CR 400 GM JAR TOPICAL SCH (15:02)
[2016-05-16] MEDS: PANTOPRAZOLE SODIUM 40 MG VIAL IV PUSH SCH (17:29)
[2016-05-17] VITALS (11 sets, daily range): BP systolic 104–172; BP diastolic 69–126; PULSE 70–123; RESP 18–28; TEMP 97.6–99.3; O2SAT 92–98
[2016-05-17] MEDS: ARTIFICIAL TEARS OPTH SOLN 15 ML BTL EACH EYE SCH ×6 (02:00→21:25)
[2016-05-17] MEDS: FREE WATER G-TUBE SCH ×3 (06:00→16:22)
[2016-05-17 06:10] LABS: ALKALINE PHOSPHATASE 78 U/L (45-117); ALT (GPT) 118 U/L (12-78); ANION GAP 10 MEQ/L (5-15); AST (GOT) 23 U/L (15-37); BICARBONATE 34.3 MEQ/L (21.0-32.0); BLOOD UREA NITROGEN 7 MG/DL (7-18); CHLORIDE 91 MEQ/L (98-107); GLOMERULAR FILTRATION RATE 249 ML/MIN (>89); POTASSIUM 3.7 MEQ/L (3.5-5.1); SODIUM (NA) 135 MEQ/L (136-145); TOTAL BILIRUBIN ADULT 0.7 MG/DL (0.2-1.0)
[2016-05-17] MEDS: METOCLOPRAMIDE HCL 10 MG/2 ML VIAL IV PUSH SCH ×3 (06:15→21:25)
[2016-05-17] MEDS: ENOXAPARIN SODIUM 40 MG/0.4 ML SYRINGE SQ SCH ×2 (06:15→16:21)
[2016-05-17] MEDS: INSULIN NovoLIN REGULAR SUPPLEMENTAL SCALE SQ SCH ×4 (06:16→21:26)
[2016-05-17] MEDS: CHLORHEXIDINE 0.12% (ORAL KIT) 15 ML CUP MT SCH ×2 (08:00→20:00)
--- NOTE | 2016-05-17 08:37 | HHI.PR ---
Subjective Remarks Off the vent up in chair on T piece PLAN Objective Vital Signs Date Time Temp Pulse Resp B/P Pulse Ox O2 Delivery O2 Flow Rate FiO2 05/17/16 07:00 98 T-Piece 6.00 28 05/17/16 06:00 107 05/17/16 04:00 109 18 124/71 94 05/17/16 04:00 111 05/17/16 02:00 114 05/17/16 00:00 116 05/17/16 00:00 98.7 116 28 126/69 92 05/16/16 22:00 117 05/16/16 20:00 112 05/16/16 20:00 98.4 112 28 130/68 97 05/16/16 19:19 96 T-piece 6.00 35 05/16/16 19:00 97 T-Piece 28 05/16/16 18:01 109 05/16/16 16:05 98.3 104 21 133/74 100 05/16/16 16:03 104 05/16/16 14:00 104 05/16/16 12:00 99.1 112 21 116/57 92 05/16/16 12:00 112 05/16/16 10:00 109 I/O 05/16/16 05/16/16 05/16/16 05/17/16 05/17/16 05/17/16 07:00 15:00 23:00 07:00 15:00 23:00 Intake Total 1293 ml 1536 ml 1453 ml 1065 ml Output Total 750 ml 1800 ml 1000 ml 650 ml Balance 543 ml -264 ml 453 ml 415 ml Intake Oral 1050 ml 960 ml 1065 ml 1065 ml IV Total 243 ml 0 ml 0 ml Tube Feeding 336 ml 388 ml Other 240 ml Output Urine Total 750 ml 1800 ml 1000 ml 650 ml # Voids 0 0 # Bowel Movements 0 1 Result Diagram: 05/15/16 0538 05/17/16 0437 Objective Remarks GENERAL: SKIN: Warm and dry. HEAD: Atraumatic. Normocephalic. EYES: Pupils equal and round. No scleral icterus. No injection or drainage. ENT: No nasal bleeding or discharge. Mucous membranes pink and moist. NECK: Trachea midline. No JVD. CARDIOVASCULAR: Regular rate and rhythm. RESPIRATORY: No accessory muscle use. Clear to auscultation. Breath sounds equal bilaterally. GASTROINTESTINAL: Abdomen soft, non-tender, nondistended. Hepatic and splenic margins not palpable. MUSCULOSKELETAL: Extremities without clubbing, cyanosis, or edema. No obvious deformities. NEUROLOGICAL: Awake and alert. No obvious cranial nerve deficits. Motor grossly within normal limits. Five out of 5 muscle strength in the arms and legs. Normal speech. PSYCHIATRIC: Appropriate mood and affect; insight and judgment normal. Assessment and Plan Assessment and Plan now on T piece RESPIRATORY FAILURE SEPSIS ARDS JACOB/CSA PLAN PULM TOILET INCREASE Activity remove trach. when possible Orlando Perry MD May 17, 2016 08:37
[2016-05-17] MEDS: BETAMETHASONE/CLOTRIMAZOLE CREAM 15 GM TOPICAL SCH ×2 (09:00→21:25)
[2016-05-17] MEDS: ARTIFICIAL TEARS OPTH OINT 3.5 APPLIC/3.5 GM TUBO EACH EYE SCH ×2 (09:00→21:24)
[2016-05-17] MEDS: BENEPROTEIN POWDER 1 PACK G-TUBE SCH ×3 (09:00→16:21)
[2016-05-17] MEDS: POTASSIUM CHLORIDE 10 MEQ CONTROLLED RELEASE TAB PO SCH (09:00)
[2016-05-17] MEDS: REMOVE OLD PATCH T-DERMAL SCH (09:00)
[2016-05-17] MEDS: DOCUSATE SODIUM 100 MG/10 ML UDC PO SCH ×2 (09:27→21:00)
[2016-05-17] MEDS: SENNOSIDES SYRUP 8.8 MG/5 ML CUP PO/TUBE SCH ×2 (09:27→21:24)
[2016-05-17] MEDS: LACTOBACILLUS ACIDOPHILUS TAB PO SCH ×3 (09:28→16:21)
[2016-05-17] MEDS: POLYETHYLENE GLYCOL 17 GM PKG PO SCH ×2 (09:28→21:25)
[2016-05-17] MEDS: NYSTATIN 100,000 U/GM PWD 15 GM BTL TOPICAL SCH ×2 (09:28→21:25)
[2016-05-17] MEDS: QUEtiapine FUMARATE 25 MG TAB PO SCH ×2 (09:28→21:24)
[2016-05-17] MEDS: POTASSIUM CL 40 MEQ/30 ML LIQ UDC PO/TUBE PRN (09:28)
[2016-05-17] MEDS: fentaNYL 25 MCG/HR PATCH TD SCH (09:28)
[2016-05-17] MEDS: INSULIN DETEMIR 100 UNITS/ML VIAL SQ SCH ×2 (09:29→21:00)
[2016-05-17] MEDS: ACETAMINOPHEN/HYDROcodone 325 MG/5 MG TAB PO SCH ×2 (09:29→21:26)
[2016-05-17] MEDS: BUMETANIDE INJ 1 MG/4 ML VIAL IV PUSH SCH (09:30)
[2016-05-17] MEDS: SODIUM CHLORIDE 0.9% FLUSH 5 ML FLUSH IVF SCH (09:30)
[2016-05-17] MEDS: SILVER SULFADIAZINE 1% CR 400 GM JAR TOPICAL SCH (09:34)
--- NOTE | 2016-05-17 11:35 | HHI.PR ---
Subjective Remarks Patient in nad. Says he has some pins and needle sensation on his left leg. No fever or chills. no n/v/d/c. Abd pain better controlled. Objective Vitals Vital Signs Date Time Temp Pulse Resp B/P Pulse Ox O2 Delivery O2 Flow Rate FiO2 05/17/16 09:00 92 T-piece 6.00 35 05/17/16 08:00 98.9 105 20 128/75 93 05/17/16 07:00 98 T-Piece 6.00 28 05/17/16 06:00 107 05/17/16 04:00 109 18 124/71 94 05/17/16 04:00 111 05/17/16 02:00 114 05/17/16 00:00 116 05/17/16 00:00 98.7 116 28 126/69 92 05/16/16 22:00 117 05/16/16 20:00 112 05/16/16 20:00 98.4 112 28 130/68 97 05/16/16 19:19 96 T-piece 6.00 35 05/16/16 19:00 97 T-Piece 28 05/16/16 18:01 109 05/16/16 16:05 98.3 104 21 133/74 100 05/16/16 16:03 104 05/16/16 14:00 104 05/16/16 12:00 99.1 112 21 116/57 92 05/16/16 12:00 112 I/O 05/16/16 05/16/16 05/16/16 05/17/16 05/17/16 05/17/16 07:00 15:00 23:00 07:00 15:00 23:00 Intake Total 1293 ml 1536 ml 1453 ml 1065 ml Output Total 750 ml 1800 ml 1000 ml 650 ml Balance 543 ml -264 ml 453 ml 415 ml Intake Oral 1050 ml 960 ml 1065 ml 1065 ml IV Total 243 ml 0 ml 0 ml Tube Feeding 336 ml 388 ml Other 240 ml Output Urine Total 750 ml 1800 ml 1000 ml 650 ml # Voids 0 0 # Bowel Movements 0 1 Result Diagram: 05/15/16 0538 05/17/16 0437 Imaging Last Impressions Chest X-Ray 05/10/16 0000 Signed Impressions: Service Date/Time: May 02:31 - CONCLUSION: 1. Hypoinflation with left perihilar atelectasis. Lungs otherwise appear clear. 2. Compensated cardiomegaly. Arthur Kennedy MD Liver Ultrasound 05/09/16 0000 Signed Impressions: Service Date/Time: Monday, May 09, 2016 22:28 - CONCLUSION: 1. Enlarged, fatty liver. 2. Small stones or tumefactive sludge adherent to one of the gallbladder arcos. 3. Splenomegaly. 4. Pancreas is obscured by overlying bowel gas and patient's body habitus. Arthur Kennedy MD Abdomen X-Ray 05/01/16 0000 Signed Impressions: Service Date/Time: Sunday, May 01, 2016 17:28 - CONCLUSION: No evidence of obstruction. Feeding tube overlies the distal stomach, May have to be advanced slightly to reach the duodenum. Nick Jon MD Chest CT 03/28/16 0836 Signed Impressions: Service Date/Time: Monday, March 28, 2016 09:57 - CONCLUSION: Development areas of air bronchograms and consolidation more prominent in the right and left posterior basilar segments of the lower lobes. ET tube above the chanelle. Bernard Hartman MD CT Angiography 03/24/16 1121 Signed Impressions: Service Date/Time: Thursday, March 24, 2016 12:47 - CONCLUSION: 1. There is respiratory motion artifact but no PE is identified through most of the segmental level pulmonary arteries. 2. Mildly enlarged main pulmonary artery may indicate pulmonary arterial hypertension. 3. 11 mm left lower lobe noncalcified pulmonary nodule. Suggest correlation with any prior imaging studies that could confirm longer-term stability. If none are available consider short-term followup noncontrast chest CT in approximately 3 months. Ubaldo Rodas MD Objective Remarks GENERAL: 50-year-old morbidly obese male, chronically ill, with tracheostomy, alert and oriented interactive. SKIN: Integrity intact. Warm and dry. HEAD: Atraumatic. Normocephalic. EYES: Pupils equal round. ENT: NG tube in place. Tracheostomy in situ no drainage or erythema around the site NECK: Large neck. Trachea midline, there is 2x2 cm wound at the collar anterior related to pressure/friction from collar, nonbleeding, optifoam in place. CARDIOVASCULAR: Distant heart sounds. RRR. S1, S2. No S4 or murmurs. RESPIRATORY: Tracheostomy. Breath sounds equal bilaterally. Diminished breath sounds due to body habitus. GASTROINTESTINAL: Abdomen soft, obese, nontender. Severe central obesity ,PEG tube without erythema or drainage MUSCULOSKELETAL: Extremities with trace to 1+ nonpitting bilateral lower extremity edema. NEUROLOGICAL: Alert. Follows commands, moves extremities 4. Date of Insertion: May 03, 2016 Date of Insertion: Apr 02, 2016 Date of Removal: May 03, 2016 Line: PICC Side: Left Location: Antecubital A/P Assessment and Plan Transaminitis. LFT improving. Abd pain, improved Follow trend of LFT. Reconsulted GI, appreciate recommendations. Liver US shows fatty liver. Small stones or tumefactive sludge adherent to one of the gallbladder arcos. 3. Splenomegaly. Avoid liver toxicity drugs. Check serology. Hep panel negative GI following. Diabetes mellitus SSI for glycemic control (high scale) 30 units sliding scale insulin scale insulin in the past 24 hours, cont Levemir insulin 35 U Q12 (was decreased) Start lyrica as patient c/o left leg tingling/pins and needle on the left leg Acute hypoxemic respiratory failure on T piece tolerates well [facility] History of staph aureus pneumonia/HCAP ARDS Trach collar with oxygen support to keep sat >92%. 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 Optifoam in place. Apply bacitracin. Wound cultures with normal sherine. Consult wound care, discussed with Nica from wound care, appreciate recommendations. Cleanse wound with NS and apply nonadhesive foam ag dressing over wound and change every other day and PRN for saturation or dislodgement. Add silvadene cream daily Mild MR/TR. Monitor HR and BP keep MAP>65mmHg 2-D echo 03/26 EF 60%. No regional wall motion abnormality. Mild MR/TR. Hypokalemia Hypernatremia-resolved Hypophosphatemia Monitor renal function, I/O's, electrolytes replacement per protocol. Urine output 625cc/per 12 hours Bumex 0.5mg/day Constipation-resolved Moderate protein calorie malnutrition Nausea and vomiting Flatulence: Give simethicone On Glucerna 1.5@45ml/hr with 1 scoop whey protein 3 times a day, no residual Protonix 40mg daily On Reglan 10mg Q8, Senna and Colace twice a day.Discontinue MiraLAX twice a day and lactulose 4 times a day. PEG tube placement- 05/03 Zofran 4 mg every 6 hours when necessary Likely SERENITY Toxic metabolic encephalopathy-resolved Off Precedex infusion (05/04) Continue [place] 5/325mg every 6hrs scheduled, fentanyl patch 25mcgs, and Shauna 5mg PRN, fentanyl patch 25 mcgs q 3 days-will begin to wean narcotics Seroquel 25mg BID initiated 05/04 Acetaminophen for fever Staph aureus pneumonia Possible staph bacteremia Pertinent culture 04/27 - pansensitive staph aureus 04/27 blood cultures 2 negative 04/25 - urine -no growth 04/19 - blood cultures 2 out of 4 - staph aureus 04/19 - sputum - staph aureus 04/08 - sputum - staph aureus 04/03 - sputum - staph aureus 03/30 - sputum- -staph aureus 03/27 - sputum - staph aureus 03/26 - blood - staph hominis On vancomycin 2 g IV every 12 are since 04/19 - 04/29 Azactam 04/27 through 04/29 Finished clindamycin ID specialist consulted, Dr. Painter, appreciate recommendations. Finished course of abx, ID specialist signed off. Leukocytosis Monitor CBC/coags Monitor WBC 11.7, unchanged Labs every 3 days, unless clinically indicated Morbid obesity BMI of 51.8 Weight loss encouraged. DVT, GI prophylaxis -Bilateral lower extremity SCDs. IV Protonix 40 mg daily. Lovenox 40 mg sq BID LINES: -Left upper extremity PICC line placed 04/15-05/04. Peripheral IVs x 2 Discharge plan: Case management has been consulted for discharge plan. The patient T piece trials successful for 48 hours plans for LTAC transfer. Discussed with the case management, very difficult discharge, no LTAC facility will take patient, currently is looking for SNF. [id number] signed. Discussed with the patient, nurse. Whitney Bejarano MD May 17, 2016 11:35
[2016-05-17] MEDS: PREGABALIN 25 MG CAP PO SCH (14:53)
[2016-05-17] MEDS: PANTOPRAZOLE SODIUM 40 MG VIAL IV PUSH SCH (16:21)
--- NOTE | 2016-05-17 19:48 | HHI.HCPN ---
Reason for visit a. To assist with evaluation and management of symptoms including: Dyspnea, anxiety b. To assist medical decision maker(s) with: better understanding of current medical conditions; weighing benefits/burdens of medical treatment options; making medical treatment decisions. . Subjective/Interval History Mr. Leger is aware and alert at time of my visit. He remains on trach to t- piece and is unable to speak. He does write, but writing is somewhat hard to read. He reports only very mild pain in his lower extremities. He denies SOB. Anxiety is reasonably well controlled. He reports his spirits are excellent. Patient's pain is currently being controlled with: * Fentanyl patch 25 mcg/hr * Austell 5-325 scheduled q 12 hours * Pregabalin 25 mg /day * He has not used his PRN oxycodone since 05/09/16 We are able to discuss goals of medical treatment. He is quite clear that he wants ongoing aggressive care including further attempts at resuscitation should he become quite ill again. Afebrile. Vital signs stable except for some variable BPs. Tolerating tube feeds. Good urine output. Bowels moving. CBC from 05/15/16 --> WBC 10; Hg 12.5 Chem profile 05/17 --> Alb 2.9. No recent cultures. No CXR since 05/10 . Discussed with primary nurse, and with case preparer and liner (who is still working on LTAC placement). . Family/friend interactions No family/friends at bedside. . Advance Directives Living Will: Completed, but not made available Health Care Surrogate: Copy in medical record Durable Power of Cashiers Supervisor: Completed, but not made available Advance Directive Specifics Date completed: 2016 Health Care Surrogate(s): Names brother Farhat Leger as HCS Objective Vital Signs Date Time Temp Pulse Resp B/P Pulse Ox O2 Delivery O2 Flow Rate FiO2 05/17/16 17:30 98.9 123 24 111/70 92 05/17/16 16:00 114 05/17/16 16:00 99.3 116 18 104/70 98 05/17/16 12:00 110 05/17/16 12:00 98.3 72 18 172/126 97 05/17/16 11:30 Nasal Cannula 4.00 05/17/16 09:00 92 T-piece 6.00 35 05/17/16 08:00 98.9 105 20 128/75 93 05/17/16 07:00 98 T-Piece 6.00 28 05/17/16 06:00 107 05/17/16 04:00 109 18 124/71 94 05/17/16 04:00 111 05/17/16 02:00 114 05/17/16 00:00 116 05/17/16 00:00 98.7 116 28 126/69 92 05/16/16 22:00 117 05/16/16 20:00 112 05/16/16 20:00 98.4 112 28 130/68 97 Intake & Output 05/17/16 05/17/16 07:00 19:00 Intake Total 2518 ml 1483 ml Output Total 1650 ml 1400 ml Balance 868 ml 83 ml Intake Oral 2130 ml 680 ml IV Total 0 ml Tube Feeding 388 ml 563 ml Other 240 ml Output Urine Total 1650 ml 1400 ml # Bowel Movements 1 . Physical Exam CONSTITUTIONAL/GENERAL: This is a morbidly obese patient, in ICU alert, T-piece TUBES/LINES/DRAINS: trach, Becker catheter, SCDs SKIN: No jaundice, rashes, or lesions.no wounds seen posteriorly. Trace generalized edema CARDIOVASCULAR: Regular rate and rhythm, no murmurs. Distant heart sounds. RESPIRATORY/CHEST: Symmetric, unlabored respirations via trach to mechanical vent. Decreased air movement throughout. Coarse breath sounds. Frequent cough. GASTROINTESTINAL: Abdomen soft, obese. Non-tender. Bowel sounds active MUSCULOSKELETAL: Extremities without clubbing, cyanosis. + generalized edema NEUROLOGICAL: awake and alert. Able to follow commands.. Moves all extremities. Communicates via writing board. PSYCHIATRIC: No obvious anxiety or psychosis . Diagnostic Tests Laboratory Laboratory Tests Test 05/15/16 05/16/16 05/17/16 05:38 03:36 04:37 White Blood Count 10.0 TH/MM3 (4.0-11.0) Red Blood Count 4.40 MIL/MM3 (4.50-5.90) Hemoglobin 12.5 GM/DL (13.0-17.0) Hematocrit 36.4 % (39.0-51.0) Mean Corpuscular Volume 82.7 FL (80.0-100.0) Mean Corpuscular Hemoglobin 28.4 PG (27.0-34.0) Mean Corpuscular Hemoglobin 34.3 % Concent (32.0-36.0) Red Cell Distribution Width 17.1 % (11.6-17.2) Platelet Count 261 TH/MM3 (150-450) Mean Platelet Volume 8.2 FL (7.0-11.0) Neutrophils (%) (Auto) 71.3 % (16.0-70.0) Lymphocytes (%) (Auto) 20.0 % (9.0-44.0) Monocytes (%) (Auto) 5.8 % (0.0-8.0) Eosinophils (%) (Auto) 2.1 % (0.0-4.0) Basophils (%) (Auto) 0.8 % (0.0-2.0) Neutrophils # (Auto) 7.1 TH/MM3 (1.8-7.7) Lymphocytes # (Auto) 2.0 TH/MM3 (1.0-4.8) Monocytes # (Auto) 0.6 TH/MM3 (0-0.9) Eosinophils # (Auto) 0.2 TH/MM3 (0-0.4) Basophils # (Auto) 0.1 TH/MM3 (0-0.2) CBC Comment AUTO DIFF Differential Total Cells 100 Counted Neutrophils % (Manual) 66 % (16-70) Band Neutrophils % 9 % (0-6) Lymphocytes % 12 % (9-44) Monocytes % 8 % (0-8) Basophils % 1 % (0-2) Neutrophils # (Manual) 7.9 TH/MM3 (1.8-7.7) Metamyelocytes 3 % (0-1) Myelocytes 1 % (0-0) Differential Comment FINAL DIFF MANUAL Platelet Estimate NORMAL (NORMAL) Platelet Morphology Comment NORMAL (NORMAL) Sodium Level 135 MEQ/L 136 MEQ/L 135 MEQ/L (136-145) (136-145) (136-145) Potassium Level 3.7 MEQ/L 3.6 MEQ/L 3.7 MEQ/L (3.5-5.1) (3.5-5.1) (3.5-5.1) Chloride Level 90 MEQ/L 92 MEQ/L 91 MEQ/L (98-107) (98-107) (98-107) Carbon Dioxide Level 36.4 MEQ/L 34.8 MEQ/L 34.3 MEQ/L (21.0-32.0) (21.0-32.0) (21.0-32.0) Anion Gap 9 MEQ/L (5-15) 9 MEQ/L (5-15) 10 MEQ/L (5-15) Blood Urea Nitrogen 10 MG/DL (7-18) 7 MG/DL (7-18) 7 MG/DL (7-18) Creatinine 0.43 MG/DL 0.36 MG/DL 0.37 MG/DL (0.60-1.30) (0.60-1.30) (0.60-1.30) Estimat Glomerular Filtration 209 ML/MIN 257 ML/MIN 249 ML/MIN Rate (>89) (>89) (>89) Random Glucose 144 MG/DL 129 MG/DL 121 MG/DL (74-106) (74-106) (74-106) Calcium Level 8.7 MG/DL 9.1 MG/DL 8.9 MG/DL (8.5-10.1) (8.5-10.1) (8.5-10.1) Total Bilirubin 0.6 MG/DL 0.7 MG/DL 0.7 MG/DL (0.2-1.0) (0.2-1.0) (0.2-1.0) Aspartate Amino Transf 38 U/L (15-37) 31 U/L (15-37) 23 U/L (15-37) (AST/SGOT) Alanine Aminotransferase 216 U/L (12-78) 162 U/L (12-78) 118 U/L (12-78) (ALT/SGPT) Alkaline Phosphatase 90 U/L (45-117) 82 U/L (45-117) 78 U/L (45-117) Total Protein 6.6 GM/DL 6.6 GM/DL 6.5 GM/DL (6.4-8.2) (6.4-8.2) (6.4-8.2) Albumin 2.9 GM/DL 2.9 GM/DL 2.9 GM/DL (3.4-5.0) (3.4-5.0) (3.4-5.0) . Result Diagram: 05/15/16 0538 05/17/16 0437 Imaging Last Impressions Chest X-Ray 05/10/16 0000 Signed Impressions: Service Date/Time: May 02:31 - CONCLUSION: 1. Hypoinflation with left perihilar atelectasis. Lungs otherwise appear clear. 2. Compensated cardiomegaly. Arthur Kennedy MD Liver Ultrasound 05/09/16 0000 Signed Impressions: Service Date/Time: Monday, May 09, 2016 22:28 - CONCLUSION: 1. Enlarged, fatty liver. 2. Small stones or tumefactive sludge adherent to one of the gallbladder arcos. 3. Splenomegaly. 4. Pancreas is obscured by overlying bowel gas and patient's body habitus. Arthur Kennedy MD Abdomen X-Ray 05/01/16 0000 Signed Impressions: Service Date/Time: Sunday, May 01, 2016 17:28 - CONCLUSION: No evidence of obstruction. Feeding tube overlies the distal stomach, May have to be advanced slightly to reach the duodenum. Nick Jon MD Chest CT 03/28/16 0836 Signed Impressions: Service Date/Time: Monday, March 28, 2016 09:57 - CONCLUSION: Development areas of air bronchograms and consolidation more prominent in the right and left posterior basilar segments of the lower lobes. ET tube above the chanelle. Bernard Hartman MD CT Angiography 03/24/16 1121 Signed Impressions: Service Date/Time: Thursday, March 24, 2016 12:47 - CONCLUSION: 1. There is respiratory motion artifact but no PE is identified through most of the segmental level pulmonary arteries. 2. Mildly enlarged main pulmonary artery may indicate pulmonary arterial hypertension. 3. 11 mm left lower lobe noncalcified pulmonary nodule. Suggest correlation with any prior imaging studies that could confirm longer-term stability. If none are available consider short-term followup noncontrast chest CT in approximately 3 months. Ubaldo Rodas MD . Procedures 03/26intubated 03/26 left IJ central line 04/02right IJ central line . Assessment and Plan Disease Oriented Problem List: (1) Acute respiratory failure with hypoxia (2) Staphylococcus aureus pneumonia (3) Pulmonary edema (4) Hypoxia (5) JACOB (obstructive sleep apnea) (6) Pulmonary nodule, left (7) Obesity hypoventilation syndrome (8) Morbid obesity with BMI of 50.0-59.9, adult (9) Diabetes mellitus type 2 in obese Symptom Scale: (1) Anxiety 0-10 Scale: 0 Comment: Well controlled on current meds. . (2) Dyspnea 0-10 Scale: 0 (3) Encephalopathy 0-10 Scale: 0 Comment: Appears resolved. . Pertinent Non-Medical Issues Psychosocial:Patient is , shares an apartment locally with his brother. Apparently has 2 other siblings as well as 2 adult children who live in the [place] area. Has designated his brother Farhat as healthcare surrogate. 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 Spiritual: Legal:Patient is not able to participate in decision-making due to clinical condition. Has completed designation naming his brother Farhat as HCS. Ethical issues impacting care: Important Contacts brother Farhat Leger [phone] (HCS) Brother Gagandeep Leger [phone] . Prognosis This patient was admitted for further evaluation of obesity hypoventilation syndrome; ultimately developed acute respiratory failure requiring mechanical ventilation. He has managed to survive and improve over time. It appears he will survive the hospitalization. He remains quite vulnerable to recurrence however. . Code Status: Full Code (per attending documentation ) Plan * FULL CODE - Patient desires FULL CODE status * DECISION-MAKING: Patient is awake, alert and capacitated to make his own health care decisions. He has designated his brother Farhat as healthcare surrogate should he become incapacitated again in the future. * GOALS: Goals remain aggressive. Patient is clear that he wants ongoing aggressive care including future resuscitation efforts if needed. * SYMPTOMS: -- Dyspnea- managed now with chest trach/O2. No further recommendations at this time. -- Anxiety- appears well managed on current medication regimen. No further recommendations at this time. -- Encephalopathy: Multifactorial, metabolic ----> resolved -- Pain: appears well managed on current medication regimen: no further recommendations at this time. * Disposition: Case management is searching for placement options. * As goals are quite clear and symptoms are well managed at this time palliative care will sign off. Please re-consult us if there is a significant change in symptoms or overall condition or goals of medical treatment need to be discussed again. . Attestation To help prompt me to consider important information that might be impacting today's encounter and assessment, information from prior notes written by myself or my colleagues may have been "brought forward" into today's note. My signature on this note, however, is an attestation that I personally performed the exam, history, and/or decision-making noted today, and, unless otherwise indicated, the interactions with patient, family, and staff as well as the review of records all occurred today. I also attest that the listed assessment and stated plan reflect my best clinical judgment today based on the combination of historical information, prior notes, and today's exam/ interactions. When time spent is documented, it refers only to time spent today by the signer, or if indicated, combined time spent today by collaborating physician/nurse practitioner. . Jose Holguin MD May 17, 2016 19:48
[2016-05-17] MEDS: RESP: IPRATROPIUM 0.5 MG/2.5 ML NEB NEB PRN (21:18)
[2016-05-17] MEDS: SODIUM CHLORIDE 0.9% FLUSH 5 ML FLUSH IVF PRN (21:27)
[2016-05-17] MEDS ORDERED: DILTIAZEM HCL 30 MG TAB PO ONE (22:45)
[2016-05-17] MEDS ORDERED: POTASSIUM CHLORIDE 20 MEQ CONTROLLED RELEASE TAB PO ONE (22:45)
[2016-05-18] VITALS (8 sets, daily range): BP systolic 100–116; BP diastolic 59–69; PULSE 104–121; RESP 20–30; TEMP 97.9–99.8; O2SAT 91–96
[2016-05-18] MEDS: ARTIFICIAL TEARS OPTH SOLN 15 ML BTL EACH EYE SCH ×6 (01:54→20:09)
[2016-05-18] MEDS: INSULIN NovoLIN REGULAR SUPPLEMENTAL SCALE SQ SCH ×4 (05:43→20:07)
[2016-05-18] MEDS: METOCLOPRAMIDE HCL 10 MG/2 ML VIAL IV PUSH SCH ×3 (05:43→20:04)
[2016-05-18] MEDS: ENOXAPARIN SODIUM 40 MG/0.4 ML SYRINGE SQ SCH ×2 (05:44→18:03)
[2016-05-18] MEDS: FREE WATER G-TUBE SCH ×4 (05:49→18:00)
--- NOTE | 2016-05-18 07:25 | HHI.PR ---
Subjective Remarks Says he has less needles and pins in his leg after we stated lyrica. No n/v/d/ c. No fever or chills. Objective Vitals Vital Signs Date Time Temp Pulse Resp B/P Pulse Ox O2 Delivery O2 Flow Rate FiO2 05/18/16 04:00 97.9 104 20 111/65 93 05/18/16 00:33 98.8 115 30 110/69 96 05/17/16 21:19 93 Trach Collar 35 05/17/16 20:56 97.6 70 22 142/78 97 05/17/16 17:30 98.9 123 24 111/70 92 05/17/16 16:00 114 05/17/16 16:00 99.3 116 18 104/70 98 05/17/16 12:00 110 05/17/16 12:00 98.3 72 18 172/126 97 05/17/16 11:30 Nasal Cannula 4.00 05/17/16 09:00 92 T-piece 6.00 35 05/17/16 08:00 98.9 105 20 128/75 93 I/O 05/17/16 05/17/16 05/17/16 05/18/16 05/18/16 05/18/16 07:00 15:00 23:00 07:00 15:00 23:00 Intake Total 1065 ml 1483 ml 600 ml Output Total 650 ml 1400 ml 300 ml Balance 415 ml 83 ml -300 ml 600 ml Intake Oral 1065 ml 680 ml IV Total 0 ml Tube Feeding 563 ml 400 ml Other 240 ml 200 ml Output Urine Total 650 ml 1400 ml 300 ml # Bowel Movements 1 1 Result Diagram: 05/15/16 0538 05/17/16 0437 Imaging Last Impressions Chest X-Ray 05/10/16 0000 Signed Impressions: Service Date/Time: May 02:31 - CONCLUSION: 1. Hypoinflation with left perihilar atelectasis. Lungs otherwise appear clear. 2. Compensated cardiomegaly. Arthur Kennedy MD Liver Ultrasound 05/09/16 0000 Signed Impressions: Service Date/Time: Monday, May 09, 2016 22:28 - CONCLUSION: 1. Enlarged, fatty liver. 2. Small stones or tumefactive sludge adherent to one of the gallbladder arcos. 3. Splenomegaly. 4. Pancreas is obscured by overlying bowel gas and patient's body habitus. Arthur Kennedy MD Abdomen X-Ray 05/01/16 0000 Signed Impressions: Service Date/Time: Sunday, May 01, 2016 17:28 - CONCLUSION: No evidence of obstruction. Feeding tube overlies the distal stomach, May have to be advanced slightly to reach the duodenum. Nick Jon MD Chest CT 03/28/16 0836 Signed Impressions: Service Date/Time: Monday, March 28, 2016 09:57 - CONCLUSION: Development areas of air bronchograms and consolidation more prominent in the right and left posterior basilar segments of the lower lobes. ET tube above the chanelle. Bernard Hartman MD CT Angiography 03/24/16 1121 Signed Impressions: Service Date/Time: Thursday, March 24, 2016 12:47 - CONCLUSION: 1. There is respiratory motion artifact but no PE is identified through most of the segmental level pulmonary arteries. 2. Mildly enlarged main pulmonary artery may indicate pulmonary arterial hypertension. 3. 11 mm left lower lobe noncalcified pulmonary nodule. Suggest correlation with any prior imaging studies that could confirm longer-term stability. If none are available consider short-term followup noncontrast chest CT in approximately 3 months. Ubaldo Rodas MD Objective Remarks GENERAL: 50-year-old morbidly obese male, chronically ill, with tracheostomy, alert and oriented interactive. SKIN: Integrity intact. Warm and dry. HEAD: Atraumatic. Normocephalic. EYES: Pupils equal round. ENT: NG tube in place. Tracheostomy in situ no drainage or erythema around the site NECK: Large neck. Trachea midline, there is 2x2 cm wound at the collar anterior related to pressure/friction from collar, nonbleeding, optifoam in place. CARDIOVASCULAR: Distant heart sounds. RRR. S1, S2. No S4 or murmurs. RESPIRATORY: Tracheostomy. Breath sounds equal bilaterally. Diminished breath sounds due to body habitus. GASTROINTESTINAL: Abdomen soft, obese, nontender. Severe central obesity ,PEG tube without erythema or drainage MUSCULOSKELETAL: Extremities with trace to 1+ nonpitting bilateral lower extremity edema. NEUROLOGICAL: Alert. Follows commands, moves extremities 4. Date of Insertion: May 03, 2016 Date of Insertion: Apr 02, 2016 Date of Removal: May 03, 2016 Line: PICC Side: Left Location: Antecubital A/P Assessment and Plan Transaminitis. LFT improving. Abd pain, improved Follow trend of LFT. Reconsulted GI, appreciate recommendations. Liver US shows fatty liver. Small stones or tumefactive sludge adherent to one of the gallbladder arcos. 3. Splenomegaly. Avoid liver toxicity drugs. Check serology. Hep panel negative GI following. Diabetes mellitus SSI for glycemic control (high scale) 30 units sliding scale insulin scale insulin in the past 24 hours, cont Levemir insulin 35 U Q12 (was decreased) Diabetic Neuropathy: patient c/o left leg tingling/pins and needle on the left leg and seem. Continue lyrica , patient symptoms resolving with lyrica. Acute hypoxemic respiratory failure on T piece tolerates well JACOB [facility] History of staph aureus pneumonia/HCAP ARDS Trach collar with oxygen support to keep sat >92%. 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 Optifoam in place. Apply bacitracin. Wound cultures with normal sherine. Consult wound care, discussed with Nica from wound care, appreciate recommendations. Cleanse wound with NS and apply nonadhesive foam ag dressing over wound and change every other day and PRN for saturation or dislodgement. Add silvadene cream daily Mild MR/TR. Monitor HR and BP keep MAP>65mmHg 2-D echo 03/26 EF 60%. No regional wall motion abnormality. Mild MR/TR. Hypokalemia Hypernatremia-resolved Hypophosphatemia Monitor renal function, I/O's, electrolytes replacement per protocol. Urine output 625cc/per 12 hours Bumex 0.5mg/day Constipation-resolved Moderate protein calorie malnutrition Nausea and vomiting Flatulence: Give simethicone On Glucerna 1.5@45ml/hr with 1 scoop whey protein 3 times a day, no residual Protonix 40mg daily On Reglan 10mg Q8, Senna and Colace twice a day.Discontinue MiraLAX twice a day and lactulose 4 times a day. PEG tube placement- / Zofran 4 mg every 6 hours when necessary Likely SERENITY Toxic metabolic encephalopathy-resolved Off Precedex infusion (05/04) Continue [place] 5/325mg every 6hrs scheduled, fentanyl patch 25mcgs, and Shauna 5mg PRN, fentanyl patch 25 mcgs q 3 days-will begin to wean narcotics Seroquel 25mg BID initiated 05/04 Acetaminophen for fever Staph aureus pneumonia Possible staph bacteremia Pertinent culture 04/27 - pansensitive staph aureus 04/27 blood cultures 2 negative 04/25 - urine -no growth 04/19 - blood cultures 2 out of 4 - staph aureus 04/19 - sputum - staph aureus 04/08 - sputum - staph aureus 04/03 - sputum - staph aureus 03/30 - sputum- -staph aureus 03/27 - sputum - staph aureus 03/26 - blood - staph hominis On vancomycin 2 g IV every 12 are since 04/19 - 04/29 Azactam 04/27 through 04/29 Finished clindamycin ID specialist consulted, Dr. Painter, appreciate recommendations. Finished course of abx, ID specialist signed off. Leukocytosis Monitor CBC/coags Monitor WBC 11.7, unchanged Labs every 3 days, unless clinically indicated Morbid obesity BMI of 51.8 Weight loss encouraged. DVT, GI prophylaxis -Bilateral lower extremity SCDs. IV Protonix 40 mg daily. Lovenox 40 mg sq BID LINES: -Left upper extremity PICC line placed 04/15-05/04. Peripheral IVs x 2 Discharge plan: Case management has been consulted for discharge plan. The patient T piece trials successful for 48 hours plans for LTAC transfer. Discussed with the case management, very difficult discharge, no LTAC facility will take patient, currently is looking for SNF. [id number] signed. Discussed with the patient, nurse. Whitney Bejarano MD May 18, 2016 07:25
[2016-05-18] MEDS: CHLORHEXIDINE 0.12% (ORAL KIT) 15 ML CUP MT SCH ×2 (08:00→20:00)
[2016-05-18] MEDS: INSULIN DETEMIR 100 UNITS/ML VIAL SQ SCH ×2 (08:22→20:07)
[2016-05-18] MEDS: SENNOSIDES SYRUP 8.8 MG/5 ML CUP PO/TUBE SCH ×2 (08:22→20:07)
[2016-05-18] MEDS: ACETAMINOPHEN/HYDROcodone 325 MG/5 MG TAB PO SCH ×2 (08:23→20:04)
[2016-05-18] MEDS: POTASSIUM CHLORIDE 10 MEQ CONTROLLED RELEASE TAB PO SCH (08:23)
[2016-05-18] MEDS: QUEtiapine FUMARATE 25 MG TAB PO SCH ×2 (08:24→20:04)
[2016-05-18] MEDS: PREGABALIN 25 MG CAP PO SCH (08:24)
[2016-05-18] MEDS: BUMETANIDE INJ 1 MG/4 ML VIAL IV PUSH SCH (08:24)
[2016-05-18] MEDS: POLYETHYLENE GLYCOL 17 GM PKG PO SCH ×2 (08:24→20:08)
[2016-05-18] MEDS: ARTIFICIAL TEARS OPTH OINT 3.5 APPLIC/3.5 GM TUBO EACH EYE SCH ×2 (08:25→20:10)
[2016-05-18] MEDS: BENEPROTEIN POWDER 1 PACK G-TUBE SCH ×3 (08:25→18:00)
[2016-05-18] MEDS: BETAMETHASONE/CLOTRIMAZOLE CREAM 15 GM TOPICAL SCH ×2 (08:25→20:10)
[2016-05-18] MEDS: DOCUSATE SODIUM 100 MG/10 ML UDC PO SCH ×3 (08:25→20:32)
[2016-05-18] MEDS: SILVER SULFADIAZINE 1% CR 400 GM JAR TOPICAL SCH (08:25)
[2016-05-18] MEDS: NYSTATIN 100,000 U/GM PWD 15 GM BTL TOPICAL SCH ×2 (08:25→20:09)
--- NOTE | 2016-05-18 08:31 | HHI.PR ---
Subjective Remarks Off the vent up in chair on T piece Objective Vital Signs Date Time Temp Pulse Resp B/P Pulse Ox O2 Delivery O2 Flow Rate FiO2 05/18/16 04:00 97.9 104 20 111/65 93 05/18/16 00:33 98.8 115 30 110/69 96 05/17/16 21:19 93 Trach Collar 35 05/17/16 20:56 97.6 70 22 142/78 97 05/17/16 17:30 98.9 123 24 111/70 92 05/17/16 16:00 114 05/17/16 16:00 99.3 116 18 104/70 98 05/17/16 12:00 110 05/17/16 12:00 98.3 72 18 172/126 97 05/17/16 11:30 Nasal Cannula 4.00 05/17/16 09:00 92 T-piece 6.00 35 I/O 05/17/16 05/17/16 05/17/16 05/18/16 05/18/16 05/18/16 07:00 15:00 23:00 07:00 15:00 23:00 Intake Total 1065 ml 1483 ml 600 ml Output Total 650 ml 1400 ml 300 ml Balance 415 ml 83 ml -300 ml 600 ml Intake Oral 1065 ml 680 ml IV Total 0 ml Tube Feeding 563 ml 400 ml Other 240 ml 200 ml Output Urine Total 650 ml 1400 ml 300 ml # Bowel Movements 1 1 Result Diagram: 05/15/16 0538 05/17/16 0437 Objective Remarks GENERAL: SKIN: Warm and dry. HEAD: Atraumatic. Normocephalic. EYES: Pupils equal and round. No scleral icterus. No injection or drainage. ENT: No nasal bleeding or discharge. Mucous membranes pink and moist. NECK: Trachea midline. No JVD. CARDIOVASCULAR: Regular rate and rhythm. RESPIRATORY: No accessory muscle use. Clear to auscultation. Breath sounds equal bilaterally. GASTROINTESTINAL: Abdomen soft, non-tender, nondistended. Hepatic and splenic margins not palpable. MUSCULOSKELETAL: Extremities without clubbing, cyanosis, or edema. No obvious deformities. NEUROLOGICAL: Awake and alert. No obvious cranial nerve deficits. Motor grossly within normal limits. Five out of 5 muscle strength in the arms and legs. Normal speech. PSYCHIATRIC: Appropriate mood and affect; insight and judgment normal. Assessment and Plan Assessment and Plan now on T piece RESPIRATORY FAILURE SEPSIS ARDS JACOB/CSA PLAN PULM TOILET INCREASE Activity remove trach. when possible Orlando Perry MD May 18, 2016 08:31
[2016-05-18] MEDS: LACTOBACILLUS ACIDOPHILUS TAB PO SCH ×3 (08:34→18:03)
[2016-05-18] MEDS: RESP: IPRATROPIUM 0.5 MG/2.5 ML NEB NEB PRN (17:13)
[2016-05-18] MEDS: PANTOPRAZOLE SODIUM 40 MG VIAL IV PUSH SCH (18:00)
[2016-05-19] VITALS (9 sets, daily range): BP systolic 103–148; BP diastolic 56–68; PULSE 106–114; RESP 18–24; TEMP 97.9–99.4; O2SAT 93–98
[2016-05-19] MEDS: ARTIFICIAL TEARS OPTH SOLN 15 ML BTL EACH EYE SCH ×6 (02:00→22:00)
[2016-05-19] MEDS: ENOXAPARIN SODIUM 40 MG/0.4 ML SYRINGE SQ SCH ×2 (05:37→17:48)
[2016-05-19] MEDS: METOCLOPRAMIDE HCL 10 MG/2 ML VIAL IV PUSH SCH ×3 (05:37→21:14)
[2016-05-19] MEDS: FREE WATER G-TUBE SCH ×4 (06:00→17:52)
[2016-05-19] MEDS: INSULIN NovoLIN REGULAR SUPPLEMENTAL SCALE SQ SCH ×4 (06:13→21:36)
[2016-05-19] MEDS: CHLORHEXIDINE 0.12% (ORAL KIT) 15 ML CUP MT SCH ×2 (08:00→20:00)
--- NOTE | 2016-05-19 08:20 | HHI.PR ---
Subjective Remarks Says numbness and tingling in the legs is better with meds. Complaints of left hand numbness and tingling. Patient has a tight ID band around and is cutting the circulation. ID band was removed, and applied on the other side a loose ID band. Patient says hand is better. He was also dessating yseterday when he was turned to be cleaned, had also copious secretions, currently satting well. Had a large BM yesterday. no n/v/d/c. Objective Vitals Vital Signs Date Time Temp Pulse Resp B/P Pulse Ox O2 Delivery O2 Flow Rate FiO2 05/19/16 07:37 98 Trach Collar 50 05/19/16 04:00 98.7 109 20 105/67 93 05/19/16 00:00 97.9 114 20 104/64 96 05/18/16 21:30 94 Trach Collar 50 05/18/16 20:00 99.8 121 20 116/68 95 05/18/16 16:00 98.8 114 28 100/59 91 05/18/16 12:00 97.9 109 26 106/64 94 I/O 05/18/16 05/18/16 05/18/16 05/19/16 05/19/16 05/19/16 07:00 15:00 23:00 07:00 15:00 23:00 Intake Total 600 ml 480 ml 1085 ml 720 ml Output Total 1400 ml 400 ml Balance 600 ml -920 ml 685 ml 720 ml Intake Oral 480 ml Tube Feeding 400 ml 1085 ml 520 ml Other 200 ml 200 ml Output Urine Total 1400 ml 400 ml # Bowel Movements 2 Result Diagram: 05/15/16 0538 05/17/16 0437 Imaging Last Impressions Chest X-Ray 05/10/16 0000 Signed Impressions: Service Date/Time: May 02:31 - CONCLUSION: 1. Hypoinflation with left perihilar atelectasis. Lungs otherwise appear clear. 2. Compensated cardiomegaly. Arthur Kennedy MD Liver Ultrasound 05/09/16 0000 Signed Impressions: Service Date/Time: Monday, May 09, 2016 22:28 - CONCLUSION: 1. Enlarged, fatty liver. 2. Small stones or tumefactive sludge adherent to one of the gallbladder arcos. 3. Splenomegaly. 4. Pancreas is obscured by overlying bowel gas and patient's body habitus. Arthur Kennedy MD Abdomen X-Ray 05/01/16 0000 Signed Impressions: Service Date/Time: Sunday, May 01, 2016 17:28 - CONCLUSION: No evidence of obstruction. Feeding tube overlies the distal stomach, May have to be advanced slightly to reach the duodenum. Nick Jon MD Chest CT 03/28/16 0836 Signed Impressions: Service Date/Time: Monday, March 28, 2016 09:57 - CONCLUSION: Development areas of air bronchograms and consolidation more prominent in the right and left posterior basilar segments of the lower lobes. ET tube above the chanelle. Bernard Hartman MD CT Angiography 03/24/16 1121 Signed Impressions: Service Date/Time: Thursday, March 24, 2016 12:47 - CONCLUSION: 1. There is respiratory motion artifact but no PE is identified through most of the segmental level pulmonary arteries. 2. Mildly enlarged main pulmonary artery may indicate pulmonary arterial hypertension. 3. 11 mm left lower lobe noncalcified pulmonary nodule. Suggest correlation with any prior imaging studies that could confirm longer-term stability. If none are available consider short-term followup noncontrast chest CT in approximately 3 months. Ubaldo Rodas MD Objective Remarks GENERAL: 50-year-old morbidly obese male, chronically ill, with tracheostomy, alert and oriented interactive. SKIN: Integrity intact. Warm and dry. HEAD: Atraumatic. Normocephalic. EYES: Pupils equal round. ENT: NG tube in place. Tracheostomy in situ no drainage or erythema around the site NECK: Large neck. Trachea midline, there is 2x2 cm wound at the collar anterior related to pressure/friction from collar, nonbleeding, optifoam in place. CARDIOVASCULAR: Distant heart sounds. RRR. S1, S2. No S4 or murmurs. RESPIRATORY: Tracheostomy. Breath sounds equal bilaterally. Diminished breath sounds due to body habitus. GASTROINTESTINAL: Abdomen soft, obese, nontender. Severe central obesity ,PEG tube without erythema or drainage MUSCULOSKELETAL: Extremities with trace to 1+ nonpitting bilateral lower extremity edema. NEUROLOGICAL: Alert. Follows commands, moves extremities 4. Date of Insertion: May 03, 2016 Date of Insertion: Apr 02, 2016 Date of Removal: May 03, 2016 Line: PICC Side: Left Location: Antecubital A/P Assessment and Plan Transaminitis. LFT improving. Abd pain, improved Follow trend of LFT. Reconsulted GI, appreciate recommendations. Liver US shows fatty liver. Small stones or tumefactive sludge adherent to one of the gallbladder arcos. 3. Splenomegaly. Avoid liver toxicity drugs. Check serology. Hep panel negative GI following. Diabetes mellitus SSI for glycemic control (high scale) 30 units sliding scale insulin scale insulin in the past 24 hours, cont Levemir insulin 35 U Q12 (was decreased) Diabetic Neuropathy: patient c/o left leg tingling/pins and needle on the left leg and seem. Continue lyrica , patient symptoms resolving with lyrica. Acute hypoxemic respiratory failure on T piece tolerates well [facility] History of staph aureus pneumonia/HCAP ARDS Trach collar with oxygen support to keep sat >92%. 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 Optifoam in place. Apply bacitracin. Wound cultures with normal sherine. Consult wound care, discussed with Nica from wound care, appreciate recommendations. Cleanse wound with NS and apply nonadhesive foam ag dressing over wound and change every other day and PRN for saturation or dislodgement. Add silvadene cream daily Mild MR/TR. Monitor HR and BP keep MAP>65mmHg 2-D echo 03/26 EF 60%. No regional wall motion abnormality. Mild MR/TR. Hypokalemia Hypernatremia-resolved Hypophosphatemia Monitor renal function, I/O's, electrolytes replacement per protocol. Urine output 625cc/per 12 hours Bumex 0.5mg/day Constipation-resolved Moderate protein calorie malnutrition Nausea and vomiting Flatulence: Give simethicone On Glucerna 1.5@45ml/hr with 1 scoop whey protein 3 times a day, no residual Protonix 40mg daily On Reglan 10mg Q8, Senna and Colace twice a day.Discontinue MiraLAX twice a day and lactulose 4 times a day. PEG tube placement- / Zofran 4 mg every 6 hours when necessary Likely SERENITY Toxic metabolic encephalopathy-resolved Off Precedex infusion (05/04) Continue [place] 5/325mg every 6hrs scheduled, fentanyl patch 25mcgs, and Shauna 5mg PRN, fentanyl patch 25 mcgs q 3 days-will begin to wean narcotics Seroquel 25mg BID initiated 05/04 Acetaminophen for fever Staph aureus pneumonia Possible staph bacteremia Pertinent culture 04/27 - pansensitive staph aureus 04/27 blood cultures 2 negative 04/25 - urine -no growth 04/19 - blood cultures 2 out of 4 - staph aureus 04/19 - sputum - staph aureus 04/08 - sputum - staph aureus 04/03 - sputum - staph aureus 03/30 - sputum- -staph aureus 03/27 - sputum - staph aureus 03/26 - blood - staph hominis On vancomycin 2 g IV every 12 are since 04/19 - 04/29 Azactam 04/27 through 04/29 Finished clindamycin ID specialist consulted, Dr. Painter, appreciate recommendations. Finished course of abx, ID specialist signed off. Leukocytosis Monitor CBC/coags Monitor WBC 11.7, unchanged Labs every 3 days, unless clinically indicated Morbid obesity BMI of 51.8 Weight loss encouraged. DVT, GI prophylaxis -Bilateral lower extremity SCDs. IV Protonix 40 mg daily. Lovenox 40 mg sq BID LINES: -Left upper extremity PICC line placed 04/15-05/04. Peripheral IVs x 2 Discharge plan: Case management has been consulted for discharge plan. The patient T piece trials successful for 48 hours plans for LTAC transfer. Discussed with the case management, very difficult discharge, no LTAC facility will take patient, currently is looking for SNF. [id number] signed. Discussed with the patient, nurse. Whitney Bejarano MD May 19, 2016 08:20
[2016-05-19] MEDS: PREGABALIN 25 MG CAP PO SCH (08:22)
[2016-05-19] MEDS: INSULIN DETEMIR 100 UNITS/ML VIAL SQ SCH ×2 (08:22→21:36)
[2016-05-19] MEDS: POTASSIUM CHLORIDE 10 MEQ CONTROLLED RELEASE TAB PO SCH (08:23)
[2016-05-19] MEDS: BENEPROTEIN POWDER 1 PACK G-TUBE SCH ×3 (08:23→18:00)
[2016-05-19] MEDS: ACETAMINOPHEN/HYDROcodone 325 MG/5 MG TAB PO SCH ×2 (08:23→21:15)
[2016-05-19] MEDS: BUMETANIDE INJ 1 MG/4 ML VIAL IV PUSH SCH (08:23)
[2016-05-19] MEDS: NYSTATIN 100,000 U/GM PWD 15 GM BTL TOPICAL SCH ×2 (08:24→21:17)
[2016-05-19] MEDS: ARTIFICIAL TEARS OPTH OINT 3.5 APPLIC/3.5 GM TUBO EACH EYE SCH ×2 (08:25→21:18)
[2016-05-19] MEDS: SENNOSIDES SYRUP 8.8 MG/5 ML CUP PO/TUBE SCH ×2 (08:25→21:10)
[2016-05-19] MEDS: QUEtiapine FUMARATE 25 MG TAB PO SCH ×2 (08:25→21:15)
[2016-05-19] MEDS: BETAMETHASONE/CLOTRIMAZOLE CREAM 15 GM TOPICAL SCH ×2 (08:25→21:16)
[2016-05-19] MEDS: POLYETHYLENE GLYCOL 17 GM PKG PO SCH ×2 (08:25→21:00)
[2016-05-19] MEDS: SILVER SULFADIAZINE 1% CR 400 GM JAR TOPICAL SCH (08:25)
[2016-05-19] MEDS: SODIUM CHLORIDE 0.9% FLUSH 5 ML FLUSH IVF SCH (08:28)
[2016-05-19] MEDS: LACTOBACILLUS ACIDOPHILUS TAB PO SCH ×3 (08:31→17:50)
[2016-05-19] MEDS: PANTOPRAZOLE SODIUM 40 MG VIAL IV PUSH SCH (17:49)
[2016-05-19] MEDS: DOCUSATE SODIUM 100 MG/10 ML UDC PO SCH (21:09)
[2016-05-20] VITALS (9 sets, daily range): BP systolic 100–129; BP diastolic 55–75; PULSE 72–129; RESP 18–22; TEMP 97.6–100.6; O2SAT 91–100
[2016-05-20] MEDS: ACETAMINOPHEN 650 MG/20.3 ML UDC PO PRN (03:45)
[2016-05-20] MEDS: ARTIFICIAL TEARS OPTH SOLN 15 ML BTL EACH EYE SCH ×6 (05:14→20:33)
[2016-05-20] MEDS: RESP: IPRATROPIUM 0.5 MG/2.5 ML NEB NEB PRN (05:20)
[2016-05-20] MEDS: ENOXAPARIN SODIUM 40 MG/0.4 ML SYRINGE SQ SCH ×2 (05:49→17:41)
[2016-05-20] MEDS: INSULIN NovoLIN REGULAR SUPPLEMENTAL SCALE SQ SCH ×4 (05:49→20:36)
[2016-05-20] MEDS: FREE WATER G-TUBE SCH ×4 (05:50→17:41)
[2016-05-20] MEDS: METOCLOPRAMIDE HCL 10 MG/2 ML VIAL IV PUSH SCH ×3 (05:50→20:32)
[2016-05-20] MEDS: CHLORHEXIDINE 0.12% (ORAL KIT) 15 ML CUP MT SCH ×2 (08:00→20:00)
[2016-05-20] MEDS: INSULIN DETEMIR 100 UNITS/ML VIAL SQ SCH ×2 (08:42→20:32)
[2016-05-20] MEDS: DOCUSATE SODIUM 100 MG/10 ML UDC PO SCH ×2 (08:43→20:30)
[2016-05-20] MEDS: SENNOSIDES SYRUP 8.8 MG/5 ML CUP PO/TUBE SCH ×2 (08:43→20:30)
[2016-05-20] MEDS: POLYETHYLENE GLYCOL 17 GM PKG PO SCH ×2 (08:43→20:32)
[2016-05-20] MEDS: LACTOBACILLUS ACIDOPHILUS TAB PO SCH ×3 (08:44→17:41)
[2016-05-20] MEDS: POTASSIUM CHLORIDE 10 MEQ CONTROLLED RELEASE TAB PO SCH (08:44)
[2016-05-20] MEDS: ACETAMINOPHEN/HYDROcodone 325 MG/5 MG TAB PO SCH ×2 (08:44→20:31)
[2016-05-20] MEDS: fentaNYL 25 MCG/HR PATCH TD SCH (08:45)
[2016-05-20] MEDS: REMOVE OLD PATCH T-DERMAL SCH (08:45)
[2016-05-20] MEDS: QUEtiapine FUMARATE 25 MG TAB PO SCH ×2 (08:45→20:32)
[2016-05-20] MEDS: BUMETANIDE INJ 1 MG/4 ML VIAL IV PUSH SCH (08:46)
[2016-05-20] MEDS: SODIUM CHLORIDE 0.9% FLUSH 5 ML FLUSH IVF SCH (08:47)
[2016-05-20] MEDS: SILVER SULFADIAZINE 1% CR 400 GM JAR TOPICAL SCH (08:47)
[2016-05-20] MEDS: ARTIFICIAL TEARS OPTH OINT 3.5 APPLIC/3.5 GM TUBO EACH EYE SCH ×2 (08:47→20:34)
[2016-05-20] MEDS: NYSTATIN 100,000 U/GM PWD 15 GM BTL TOPICAL SCH ×2 (08:48→20:33)
[2016-05-20] MEDS: BETAMETHASONE/CLOTRIMAZOLE CREAM 15 GM TOPICAL SCH ×2 (08:48→20:33)
[2016-05-20] MEDS: BENEPROTEIN POWDER 1 PACK G-TUBE SCH ×3 (09:00→17:41)
[2016-05-20 10:21] LABS: ALKALINE PHOSPHATASE 80 U/L (45-117); ALT (GPT) 61 U/L (12-78); ANION GAP 7 MEQ/L (5-15); AST (GOT) 26 U/L (15-37); BICARBONATE 35.3 MEQ/L (21.0-32.0); BLOOD UREA NITROGEN 8 MG/DL (7-18); CHLORIDE 98 MEQ/L (98-107); GLOMERULAR FILTRATION RATE 189 ML/MIN (>89); POTASSIUM 4.4 MEQ/L (3.5-5.1); SODIUM (NA) 140 MEQ/L (136-145); TOTAL BILIRUBIN ADULT 0.4 MG/DL (0.2-1.0)
--- NOTE | 2016-05-20 10:31 | HHI.PR ---
Subjective Remarks Says left arm without pain or tingling, improved after removal of ID band. Patient says he has pain.tingling in his left leg, lyrica helped some, will increase lyrica. No feevr or chills. Has secretions. + cough .SOB at baseline. No much abdominal pain. Objective Vitals Vital Signs Date Time Temp Pulse Resp B/P Pulse Ox O2 Delivery O2 Flow Rate FiO2 05/20/16 08:20 98.3 122 18 127/60 96 05/20/16 05:28 96 Blow-by 6.00 70 05/20/16 05:24 96 T-piece 70 05/20/16 04:00 100.6 119 22 107/68 96 05/20/16 00:31 100.3 118 22 105/63 95 05/19/16 21:25 98 T-Piece 6.00 50 05/19/16 21:10 109 05/19/16 20:00 99.0 110 24 148/68 96 05/19/16 16:32 99.4 114 18 107/67 96 05/19/16 12:00 98.1 106 20 103/56 96 I/O 05/19/16 05/19/16 05/19/16 05/20/16 05/20/16 05/20/16 07:00 15:00 23:00 07:00 15:00 23:00 Intake Total 720 ml 720 ml 748 ml 240 ml Output Total 1450 ml 1600 ml 200 ml Balance 720 ml -730 ml -852 ml 40 ml Intake Oral 720 ml 240 ml Tube Feeding 520 ml 448 ml Other 200 ml 300 ml Output Urine Total 1450 ml 1600 ml 200 ml # Bowel Movements 1 0 0 Result Diagram: 05/20/16 0842 Imaging Last Impressions Chest X-Ray 05/10/16 0000 Signed Impressions: Service Date/Time: May 02:31 - CONCLUSION: 1. Hypoinflation with left perihilar atelectasis. Lungs otherwise appear clear. 2. Compensated cardiomegaly. Arthur Kennedy MD Liver Ultrasound 05/09/16 0000 Signed Impressions: Service Date/Time: Monday, May 09, 2016 22:28 - CONCLUSION: 1. Enlarged, fatty liver. 2. Small stones or tumefactive sludge adherent to one of the gallbladder arcos. 3. Splenomegaly. 4. Pancreas is obscured by overlying bowel gas and patient's body habitus. Arthur Kennedy MD Abdomen X-Ray 05/01/16 0000 Signed Impressions: Service Date/Time: Sunday, May 01, 2016 17:28 - CONCLUSION: No evidence of obstruction. Feeding tube overlies the distal stomach, May have to be advanced slightly to reach the duodenum. Nick Jon MD Chest CT 03/28/16 0836 Signed Impressions: Service Date/Time: Monday, March 28, 2016 09:57 - CONCLUSION: Development areas of air bronchograms and consolidation more prominent in the right and left posterior basilar segments of the lower lobes. ET tube above the chanelle. Bernard Hartman MD CT Angiography 03/24/16 1121 Signed Impressions: Service Date/Time: Thursday, March 24, 2016 12:47 - CONCLUSION: 1. There is respiratory motion artifact but no PE is identified through most of the segmental level pulmonary arteries. 2. Mildly enlarged main pulmonary artery may indicate pulmonary arterial hypertension. 3. 11 mm left lower lobe noncalcified pulmonary nodule. Suggest correlation with any prior imaging studies that could confirm longer-term stability. If none are available consider short-term followup noncontrast chest CT in approximately 3 months. Ubaldo Rodas MD Objective Remarks GENERAL: 50-year-old morbidly obese male, chronically ill, with tracheostomy, alert and oriented interactive. SKIN: Integrity intact. Warm and dry. HEAD: Atraumatic. Normocephalic. EYES: Pupils equal round. ENT: NG tube in place. Tracheostomy in situ no drainage or erythema around the site NECK: Large neck. Trachea midline, there is 2x2 cm wound at the collar anterior related to pressure/friction from collar, nonbleeding, optifoam in place. CARDIOVASCULAR: Distant heart sounds. RRR. S1, S2. No S4 or murmurs. RESPIRATORY: Tracheostomy. Breath sounds equal bilaterally. Diminished breath sounds due to body habitus. GASTROINTESTINAL: Abdomen soft, obese, nontender. Severe central obesity ,PEG tube without erythema or drainage MUSCULOSKELETAL: Extremities with trace to 1+ nonpitting bilateral lower extremity edema. NEUROLOGICAL: Alert. Follows commands, moves extremities 4. Date of Insertion: May 03, 2016 Date of Insertion: Apr 02, 2016 Date of Removal: May 03, 2016 Line: PICC Side: Left Location: Antecubital A/P Assessment and Plan Transaminitis. LFT improving. Abd pain, improved Follow trend of LFT. Reconsulted GI, appreciate recommendations. Liver US shows fatty liver. Small stones or tumefactive sludge adherent to one of the gallbladder arcos. 3. Splenomegaly. Avoid liver toxicity drugs. Check serology. Hep panel negative GI following. Diabetes mellitus SSI for glycemic control (high scale) 30 units sliding scale insulin scale insulin in the past 24 hours, cont Levemir insulin 35 U Q12 (was decreased) Diabetic Neuropathy: patient c/o left leg tingling/pins and needle on the left leg and seem. Increase lyrica to 50 mg po daily, improving. Acute hypoxemic respiratory failure on T piece tolerates well [facility] History of staph aureus pneumonia/HCAP ARDS Trach collar with oxygen support to keep sat >92%. 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 Optifoam in place. Apply bacitracin. Wound cultures with normal sherine. Consult wound care, discussed with Niac from wound care, appreciate recommendations. Cleanse wound with NS and apply nonadhesive foam ag dressing over wound and change every other day and PRN for saturation or dislodgement. Add silvadene cream daily Mild MR/TR. Monitor HR and BP keep MAP>65mmHg 2-D echo 03/26 EF 60%. No regional wall motion abnormality. Mild MR/TR. Hypokalemia Hypernatremia-resolved Hypophosphatemia Monitor renal function, I/O's, electrolytes replacement per protocol. Urine output 625cc/per 12 hours Bumex 0.5mg/day Constipation-resolved Moderate protein calorie malnutrition Nausea and vomiting Flatulence: Give simethicone On Glucerna 1.5@45ml/hr with 1 scoop whey protein 3 times a day, no residual Protonix 40mg daily On Reglan 10mg Q8, Senna and Colace twice a day.Discontinue MiraLAX twice a day and lactulose 4 times a day. PEG tube placement- 3/2 Zofran 4 mg every 6 hours when necessary Likely SERENITY Toxic metabolic encephalopathy-resolved Off Precedex infusion (3/3) Continue [place] 5/325mg every 6hrs scheduled, fentanyl patch 25mcgs, and Shauna 5mg PRN, fentanyl patch 25 mcgs q 3 days-will begin to wean narcotics Seroquel 25mg BID initiated 05/04 Acetaminophen for fever Staph aureus pneumonia Possible staph bacteremia Pertinent culture 04/27 - pansensitive staph aureus 04/27 blood cultures 2 negative 04/25 - urine -no growth 04/19 - blood cultures 2 out of 4 - staph aureus 04/19 - sputum - staph aureus 04/08 - sputum - staph aureus 04/03 - sputum - staph aureus 03/30 - sputum- -staph aureus 03/27 - sputum - staph aureus 03/26 - blood - staph hominis On vancomycin 2 g IV every 12 are since 04/19 - 04/29 Azactam 04/27 through 04/29 Finished clindamycin ID specialist consulted, Dr. Painter, appreciate recommendations. Finished course of abx, ID specialist signed off. Leukocytosis Monitor CBC/coags Monitor WBC 11.7, unchanged Labs every 3 days, unless clinically indicated Morbid obesity BMI of 51.8 Weight loss encouraged. DVT, GI prophylaxis -Bilateral lower extremity SCDs. IV Protonix 40 mg daily. Lovenox 40 mg sq BID LINES: -Left upper extremity PICC line placed 04/15-05/04. Peripheral IVs x 2 Discharge plan: Case management has been consulted for discharge plan. The patient T piece trials successful for 48 hours plans for LTAC transfer. Discussed with the case management, very difficult discharge, no LTAC facility will take patient, currently is looking for SNF. [id number] signed. Discussed with the patient, nurse. Whitney Bejarano MD May 20, 2016 10:31
[2016-05-20] MEDS: SODIUM CHLORIDE 0.9% FLUSH 5 ML FLUSH IVF PRN (13:25)
[2016-05-20] MEDS: PANTOPRAZOLE SODIUM 40 MG VIAL IV PUSH SCH (17:41)
[2016-05-21] VITALS (12 sets, daily range): BP systolic 103–167; BP diastolic 52–86; PULSE 114–134; RESP 20–26; TEMP 97.4–100.2; O2SAT 94–100
[2016-05-21] MEDS: ARTIFICIAL TEARS OPTH SOLN 15 ML BTL EACH EYE SCH ×6 (01:40→22:15)
[2016-05-21] MEDS: oxyCODONE HCL ORAL CONC 20 MG/ML SYRINGE PO PRN (04:46)
[2016-05-21] MEDS: FREE WATER G-TUBE SCH ×4 (06:00→17:02)
[2016-05-21] MEDS: METOCLOPRAMIDE HCL 10 MG/2 ML VIAL IV PUSH SCH ×3 (06:45→22:12)
[2016-05-21] MEDS: ENOXAPARIN SODIUM 40 MG/0.4 ML SYRINGE SQ SCH ×2 (06:46→17:08)
[2016-05-21] MEDS: INSULIN NovoLIN REGULAR SUPPLEMENTAL SCALE SQ SCH ×4 (06:49→22:14)
[2016-05-21] MEDS: CHLORHEXIDINE 0.12% (ORAL KIT) 15 ML CUP MT SCH ×2 (08:00→20:00)
[2016-05-21] MEDS: BUMETANIDE INJ 1 MG/4 ML VIAL IV PUSH SCH (08:39)
[2016-05-21] MEDS: QUEtiapine FUMARATE 25 MG TAB PO SCH ×2 (08:42→22:10)
[2016-05-21] MEDS: PREGABALIN 25 MG CAP PO SCH (08:44)
[2016-05-21] MEDS: SENNOSIDES SYRUP 8.8 MG/5 ML CUP PO/TUBE SCH ×2 (08:44→21:00)
[2016-05-21] MEDS: POLYETHYLENE GLYCOL 17 GM PKG PO SCH ×2 (08:44→21:00)
[2016-05-21] MEDS: POTASSIUM CHLORIDE 10 MEQ CONTROLLED RELEASE TAB PO SCH (08:44)
[2016-05-21] MEDS: ACETAMINOPHEN/HYDROcodone 325 MG/5 MG TAB PO SCH ×2 (08:44→22:10)
[2016-05-21] MEDS: LACTOBACILLUS ACIDOPHILUS TAB PO SCH ×3 (08:44→17:01)
[2016-05-21] MEDS: BETAMETHASONE/CLOTRIMAZOLE CREAM 15 GM TOPICAL SCH ×2 (08:45→22:16)
[2016-05-21] MEDS: DOCUSATE SODIUM 100 MG/10 ML UDC PO SCH ×2 (08:45→21:00)
[2016-05-21] MEDS: NYSTATIN 100,000 U/GM PWD 15 GM BTL TOPICAL SCH ×2 (08:45→22:15)
[2016-05-21] MEDS: SILVER SULFADIAZINE 1% CR 400 GM JAR TOPICAL SCH (08:46)
[2016-05-21] MEDS: ARTIFICIAL TEARS OPTH OINT 3.5 APPLIC/3.5 GM TUBO EACH EYE SCH ×2 (08:47→22:16)
[2016-05-21] MEDS: BENEPROTEIN POWDER 1 PACK G-TUBE SCH ×3 (08:59→17:02)
[2016-05-21] MEDS: SODIUM CHLORIDE 0.9% FLUSH 5 ML FLUSH IVF SCH (09:03)
[2016-05-21] MEDS: INSULIN DETEMIR 100 UNITS/ML VIAL SQ SCH ×2 (09:04→22:14)
--- NOTE | 2016-05-21 11:22 | HHI.PR ---
Subjective Remarks awake, on tube feedings, tracheostomy activity limited Objective Vitals Vital Signs Date Time Temp Pulse Resp B/P Pulse Ox O2 Delivery O2 Flow Rate FiO2 05/21/16 11:09 95 Trach Collar 70 05/21/16 09:14 94 T-Piece 6.00 70 05/21/16 08:00 100.2 134 26 105/52 94 05/21/16 05:46 19 05/21/16 04:45 96 Trach Collar 6.00 70 05/21/16 04:00 100.0 123 20 130/64 100 05/21/16 02:30 97 T-Piece 6.00 70 05/21/16 00:49 118 05/21/16 00:00 97.8 114 20 105/61 94 05/20/16 23:52 92 Trach Collar 7.00 70 05/20/16 21:31 19 05/20/16 20:20 98.8 114 20 123/73 91 05/20/16 20:00 Trach Collar 70 05/20/16 16:54 100.1 128 18 128/75 95 05/20/16 12:30 99.4 129 18 129/59 I/O 05/20/16 05/20/16 05/20/16 05/21/16 05/21/16 05/21/16 07:00 15:00 23:00 07:00 15:00 23:00 Intake Total 240 ml 1080 ml 1418 ml Output Total 200 ml 1650 ml 1100 ml Balance 40 ml -570 ml 318 ml Intake Oral 240 ml 1080 ml 240 ml Tube Feeding 978 ml Other 200 ml Output Urine Total 200 ml 1650 ml 1100 ml # Bowel Movements 0 1 0 Result Diagram: 05/20/16 0842 Imaging Last Impressions Chest X-Ray 05/10/16 0000 Signed Impressions: Service Date/Time: May 02:31 - CONCLUSION: 1. Hypoinflation with left perihilar atelectasis. Lungs otherwise appear clear. 2. Compensated cardiomegaly. Arthur Kennedy MD Liver Ultrasound 05/09/16 0000 Signed Impressions: Service Date/Time: Monday, May 09, 2016 22:28 - CONCLUSION: 1. Enlarged, fatty liver. 2. Small stones or tumefactive sludge adherent to one of the gallbladder arcos. 3. Splenomegaly. 4. Pancreas is obscured by overlying bowel gas and patient's body habitus. Arthur Kennedy MD Abdomen X-Ray 05/01/16 0000 Signed Impressions: Service Date/Time: Sunday, May 01, 2016 17:28 - CONCLUSION: No evidence of obstruction. Feeding tube overlies the distal stomach, May have to be advanced slightly to reach the duodenum. Nick Jon MD Chest CT 03/28/16 0836 Signed Impressions: Service Date/Time: Monday, March 28, 2016 09:57 - CONCLUSION: Development areas of air bronchograms and consolidation more prominent in the right and left posterior basilar segments of the lower lobes. ET tube above the chanelle. Bernard Hartman MD CT Angiography 03/24/16 1121 Signed Impressions: Service Date/Time: Thursday, March 24, 2016 12:47 - CONCLUSION: 1. There is respiratory motion artifact but no PE is identified through most of the segmental level pulmonary arteries. 2. Mildly enlarged main pulmonary artery may indicate pulmonary arterial hypertension. 3. 11 mm left lower lobe noncalcified pulmonary nodule. Suggest correlation with any prior imaging studies that could confirm longer-term stability. If none are available consider short-term followup noncontrast chest CT in approximately 3 months. Ubaldo Rodas MD Objective Remarks awake and alert,ff all commands anicteric trachestomy in place lungs decreased breath sounds regular rhythm abdomen- globularly soft, nontender, PEG in place batista in place LE- no edema, moves all extremities spontaneously Date of Insertion: May 03, 2016 Date of Insertion: Apr 02, 2016 Date of Removal: May 03, 2016 Line: PICC Side: Left Location: Antecubital A/P Assessment and Plan Transaminitis. LFT improving. Abd pain, improved Follow trend of LFT. Reconsulted GI, appreciate recommendations. Liver US shows fatty liver. Small stones or tumefactive sludge adherent to one of the gallbladder arcos. 3. Splenomegaly. Avoid liver toxicity drugs. Check serology. Hep panel negative GI following. Diabetes mellitus SSI for glycemic control (high scale) 30 units sliding scale insulin scale insulin in the past 24 hours, cont Levemir insulin 35 U Q12 (was decreased) Diabetic Neuropathy: patient c/o left leg tingling/pins and needle on the left leg and seem. Increase lyrica to 50 mg po daily, improving. Acute hypoxemic respiratory failure on T piece tolerates well [facility] History of staph aureus pneumonia/HCAP ARDS Trach collar with oxygen support to keep sat >92%. 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 Optifoam in place. Apply bacitracin. Wound cultures with normal sherine. Consult wound care, discussed with Nica from wound care, appreciate recommendations. Cleanse wound with NS and apply nonadhesive foam ag dressing over wound and change every other day and PRN for saturation or dislodgement. Add silvadene cream daily Mild MR/TR. Monitor HR and BP keep MAP>65mmHg 2-D echo 03/26 EF 60%. No regional wall motion abnormality. Mild MR/TR. Hypokalemia Hypernatremia-resolved Hypophosphatemia Monitor renal function, I/O's, electrolytes replacement per protocol. Urine output 625cc/per 12 hours Bumex 0.5mg/day Constipation-resolved Moderate protein calorie malnutrition Nausea and vomiting Flatulence: Give simethicone On Glucerna 1.5@45ml/hr with 1 scoop whey protein 3 times a day, no residual Protonix 40mg daily On Reglan 10mg Q8, Senna and Colace twice a day.Discontinue MiraLAX twice a day and lactulose 4 times a day. PEG tube placement- 05/03 Zofran 4 mg every 6 hours when necessary Likely SERENITY Toxic metabolic encephalopathy-resolved Off Precedex infusion (05/04) Continue [place] 5/325mg every 6hrs scheduled, fentanyl patch 25mcgs, and Shauna 5mg PRN, fentanyl patch 25 mcgs q 3 days-will begin to wean narcotics Seroquel 25mg BID initiated 05/04 Acetaminophen for fever Staph aureus pneumonia Possible staph bacteremia Pertinent culture 04/27 - pansensitive staph aureus 04/27 blood cultures 2 negative 04/25 - urine -no growth 04/19 - blood cultures 2 out of 4 - staph aureus 04/19 - sputum - staph aureus 04/08 - sputum - staph aureus 04/03 - sputum - staph aureus 03/30 - sputum- -staph aureus 1/24 - sputum - staph aureus 03/26 - blood - staph hominis On vancomycin 2 g IV every 12 are since 04/19 - 04/29 Azactam 04/27 through 04/29 Finished clindamycin ID specialist consulted, Dr. Painter, appreciate recommendations. Finished course of abx, ID specialist signed off. Leukocytosis Monitor CBC/coags Monitor WBC 11.7, unchanged Labs every 3 days, unless clinically indicated Morbid obesity BMI of 51.8 Weight loss encouraged. DVT, GI prophylaxis -Bilateral lower extremity SCDs. IV Protonix 40 mg daily. Lovenox 40 mg sq BID LINES: -Left upper extremity PICC line placed 04/15-05/04. Peripheral IVs x 2 Discharge plan: Case management has been consulted for discharge plan. The patient T piece trials successful for 48 hours plans for LTAC transfer. Discussed with the case management, very difficult discharge, no LTAC facility will take patient, currently is looking for SNF. [id number] signed. Discussed with the patient, nurse. Whitney Bejarano MD May 20, 2016 10:31 Ana Dent MD May 21, 2016 11:22
--- NOTE | 2016-05-21 16:11 | HHI.PR ---
Subjective Remarks Off the vent up in chair on T piece Objective Vital Signs Date Time Temp Pulse Resp B/P Pulse Ox O2 Delivery O2 Flow Rate FiO2 05/21/16 12:00 97.4 115 26 104/68 98 05/21/16 11:09 95 Trach Collar 70 05/21/16 09:14 94 T-Piece 6.00 70 05/21/16 08:00 100.2 134 26 105/52 94 05/21/16 05:46 19 05/21/16 04:45 96 Trach Collar 6.00 70 05/21/16 04:00 100.0 123 20 130/64 100 05/21/16 02:30 97 T-Piece 6.00 70 05/21/16 00:49 118 05/21/16 00:00 97.8 114 20 105/61 94 05/20/16 23:52 92 Trach Collar 7.00 70 05/20/16 21:31 19 05/20/16 20:20 98.8 114 20 123/73 91 05/20/16 20:00 Trach Collar 70 05/20/16 16:54 100.1 128 18 128/75 95 I/O 05/20/16 05/20/16 05/20/16 05/21/16 05/21/16 05/21/16 07:00 15:00 23:00 07:00 15:00 23:00 Intake Total 240 ml 1080 ml 1418 ml 480 ml Output Total 200 ml 1650 ml 1100 ml 1400 ml Balance 40 ml -570 ml 318 ml -920 ml Intake Oral 240 ml 1080 ml 240 ml 480 ml Tube Feeding 978 ml Other 200 ml Output Urine Total 200 ml 1650 ml 1100 ml 1400 ml # Bowel Movements 0 1 0 0 Result Diagram: 05/20/16 0842 Objective Remarks GENERAL: SKIN: Warm and dry. HEAD: Atraumatic. Normocephalic. EYES: Pupils equal and round. No scleral icterus. No injection or drainage. ENT: No nasal bleeding or discharge. Mucous membranes pink and moist. NECK: Trachea midline. No JVD. CARDIOVASCULAR: Regular rate and rhythm. RESPIRATORY: No accessory muscle use. Clear to auscultation. Breath sounds equal bilaterally. GASTROINTESTINAL: Abdomen soft, non-tender, nondistended. Hepatic and splenic margins not palpable. MUSCULOSKELETAL: Extremities without clubbing, cyanosis, or edema. No obvious deformities. NEUROLOGICAL: Awake and alert. No obvious cranial nerve deficits. Motor grossly within normal limits. Five out of 5 muscle strength in the arms and legs. Normal speech. PSYCHIATRIC: Appropriate mood and affect; insight and judgment normal. Assessment and Plan Assessment and Plan now on T piece RESPIRATORY FAILURE SEPSIS ARDS JACOB/CSA PLAN PULM TOILET INCREASE Activity remove trach. when possible Orlando Perry MD May 21, 2016 16:11
[2016-05-21] MEDS: PANTOPRAZOLE SODIUM 40 MG VIAL IV PUSH SCH (17:01)
[2016-05-21] MEDS: SODIUM CHLORIDE 0.9% FLUSH 5 ML FLUSH IVF PRN (22:58)
[2016-05-22] VITALS (7 sets, daily range): BP systolic 112–118; BP diastolic 67–73; PULSE 112–126; RESP 18–25; TEMP 97.1–100.1; O2SAT 91–98
[2016-05-22] MEDS: oxyCODONE HCL ORAL CONC 20 MG/ML SYRINGE PO PRN ×2 (03:06→15:12)
[2016-05-22] MEDS: FREE WATER G-TUBE SCH ×4 (03:07→17:18)
[2016-05-22] MEDS: ARTIFICIAL TEARS OPTH SOLN 15 ML BTL EACH EYE SCH ×6 (03:07→21:19)
[2016-05-22] MEDS: ENOXAPARIN SODIUM 40 MG/0.4 ML SYRINGE SQ SCH ×2 (05:15→17:19)
[2016-05-22] MEDS: METOCLOPRAMIDE HCL 10 MG/2 ML VIAL IV PUSH SCH ×3 (05:16→21:17)
[2016-05-22] MEDS: INSULIN NovoLIN REGULAR SUPPLEMENTAL SCALE SQ SCH ×3 (05:43→15:28)
[2016-05-22] MEDS: CHLORHEXIDINE 0.12% (ORAL KIT) 15 ML CUP MT SCH ×2 (08:00→20:00)
[2016-05-22] MEDS: PREGABALIN 25 MG CAP PO SCH (08:06)
[2016-05-22] MEDS: DOCUSATE SODIUM 100 MG/10 ML UDC PO SCH ×2 (08:07→21:00)
[2016-05-22] MEDS: POTASSIUM CHLORIDE 10 MEQ CONTROLLED RELEASE TAB PO SCH (08:07)
[2016-05-22] MEDS: LACTOBACILLUS ACIDOPHILUS TAB PO SCH ×3 (08:07→17:18)
[2016-05-22] MEDS: BENEPROTEIN POWDER 1 PACK G-TUBE SCH ×3 (08:08→17:18)
[2016-05-22] MEDS: SODIUM CHLORIDE 0.9% FLUSH 5 ML FLUSH IVF SCH (08:08)
[2016-05-22] MEDS: BUMETANIDE INJ 1 MG/4 ML VIAL IV PUSH SCH (08:08)
[2016-05-22] MEDS: ARTIFICIAL TEARS OPTH OINT 3.5 APPLIC/3.5 GM TUBO EACH EYE SCH ×2 (08:09→21:20)
[2016-05-22] MEDS: SENNOSIDES SYRUP 8.8 MG/5 ML CUP PO/TUBE SCH ×2 (08:09→21:00)
[2016-05-22] MEDS: BETAMETHASONE/CLOTRIMAZOLE CREAM 15 GM TOPICAL SCH ×2 (08:10→21:20)
[2016-05-22] MEDS: POLYETHYLENE GLYCOL 17 GM PKG PO SCH ×2 (08:10→21:00)
[2016-05-22] MEDS: NYSTATIN 100,000 U/GM PWD 15 GM BTL TOPICAL SCH ×2 (08:11→21:19)
[2016-05-22] MEDS: SILVER SULFADIAZINE 1% CR 400 GM JAR TOPICAL SCH (08:11)
[2016-05-22] MEDS: INSULIN DETEMIR 100 UNITS/ML VIAL SQ SCH ×2 (08:22→21:17)
[2016-05-22] MEDS: ACETAMINOPHEN/HYDROcodone 325 MG/5 MG TAB PO SCH ×2 (08:22→21:22)
[2016-05-22] MEDS: QUEtiapine FUMARATE 25 MG TAB PO SCH ×2 (08:37→21:15)
--- NOTE | 2016-05-22 08:48 | HHI.PR ---
Subjective Remarks Off the vent up in chair on T piece Objective Vital Signs Date Time Temp Pulse Resp B/P Pulse Ox O2 Delivery O2 Flow Rate FiO2 05/22/16 08:00 100.1 126 25 112/67 91 05/22/16 04:33 99.6 118 18 118/68 96 05/22/16 01:30 T-Piece 6.00 70 05/21/16 23:56 100.0 118 20 103/63 96 05/21/16 20:30 95 Trach Collar 5.00 50 05/21/16 20:05 100.0 120 20 167/86 97 05/21/16 18:00 121 05/21/16 16:00 98.9 122 25 108/61 98 05/21/16 12:00 97.4 115 26 104/68 98 05/21/16 11:09 95 Trach Collar 70 05/21/16 09:14 94 T-Piece 6.00 70 I/O 05/21/16 05/21/16 05/21/16 05/22/16 05/22/16 05/22/16 07:00 15:00 23:00 07:00 15:00 23:00 Intake Total 1418 ml 480 ml Output Total 1100 ml 1400 ml 1600 ml Balance 318 ml -920 ml -1600 ml Intake Oral 240 ml 480 ml Tube Feeding 978 ml Other 200 ml Output Urine Total 1100 ml 1400 ml 1600 ml # Bowel Movements 0 0 2 Result Diagram: 05/20/16 0842 Objective Remarks GENERAL: SKIN: Warm and dry. HEAD: Atraumatic. Normocephalic. EYES: Pupils equal and round. No scleral icterus. No injection or drainage. ENT: No nasal bleeding or discharge. Mucous membranes pink and moist. NECK: Trachea midline. No JVD. CARDIOVASCULAR: Regular rate and rhythm. RESPIRATORY: No accessory muscle use. Clear to auscultation. Breath sounds equal bilaterally. GASTROINTESTINAL: Abdomen soft, non-tender, nondistended. Hepatic and splenic margins not palpable. MUSCULOSKELETAL: Extremities without clubbing, cyanosis, or edema. No obvious deformities. NEUROLOGICAL: Awake and alert. No obvious cranial nerve deficits. Motor grossly within normal limits. Five out of 5 muscle strength in the arms and legs. Normal speech. PSYCHIATRIC: Appropriate mood and affect; insight and judgment normal. Assessment and Plan Assessment and Plan now on T piece RESPIRATORY FAILURE SEPSIS RESOLVED ARDS JACOB/CSA S/P TRACH. PLAN PULM TOILET INCREASE Activity remove trach. when possible Orlando Perry MD May 22, 2016 08:48
[2016-05-22] MEDS: ACETAMINOPHEN 650 MG/20.3 ML UDC PO PRN (09:34)
--- NOTE | 2016-05-22 10:07 | HHI.PR ---
Subjective Remarks awake and alert tolerating tube feedings ff all commands Objective Vitals Vital Signs Date Time Temp Pulse Resp B/P Pulse Ox O2 Delivery O2 Flow Rate FiO2 05/22/16 08:00 100.1 126 25 112/67 91 05/22/16 04:33 99.6 118 18 118/68 96 05/22/16 01:30 T-Piece 6.00 70 05/21/16 23:56 100.0 118 20 103/63 96 05/21/16 20:30 95 Trach Collar 5.00 50 05/21/16 20:05 100.0 120 20 167/86 97 05/21/16 18:00 121 05/21/16 16:00 98.9 122 25 108/61 98 05/21/16 12:00 97.4 115 26 104/68 98 05/21/16 11:09 95 Trach Collar 70 I/O 05/21/16 05/21/16 05/21/16 05/22/16 05/22/16 05/22/16 07:00 15:00 23:00 07:00 15:00 23:00 Intake Total 1418 ml 480 ml Output Total 1100 ml 1400 ml 1600 ml Balance 318 ml -920 ml -1600 ml Intake Oral 240 ml 480 ml Tube Feeding 978 ml Other 200 ml Output Urine Total 1100 ml 1400 ml 1600 ml # Bowel Movements 0 0 2 Result Diagram: 05/20/16 0842 Imaging Last Impressions Chest X-Ray 05/10/16 0000 Signed Impressions: Service Date/Time: May 02:31 - CONCLUSION: 1. Hypoinflation with left perihilar atelectasis. Lungs otherwise appear clear. 2. Compensated cardiomegaly. Arthur Kennedy MD Liver Ultrasound 05/09/16 0000 Signed Impressions: Service Date/Time: Monday, May 09, 2016 22:28 - CONCLUSION: 1. Enlarged, fatty liver. 2. Small stones or tumefactive sludge adherent to one of the gallbladder arcos. 3. Splenomegaly. 4. Pancreas is obscured by overlying bowel gas and patient's body habitus. Arthur Kennedy MD Abdomen X-Ray 05/01/16 0000 Signed Impressions: Service Date/Time: Sunday, May 01, 2016 17:28 - CONCLUSION: No evidence of obstruction. Feeding tube overlies the distal stomach, May have to be advanced slightly to reach the duodenum. Nick Jon MD Chest CT 03/28/16 0836 Signed Impressions: Service Date/Time: Monday, March 28, 2016 09:57 - CONCLUSION: Development areas of air bronchograms and consolidation more prominent in the right and left posterior basilar segments of the lower lobes. ET tube above the chanelle. Bernard Hartman MD CT Angiography 03/24/16 1121 Signed Impressions: Service Date/Time: Thursday, March 24, 2016 12:47 - CONCLUSION: 1. There is respiratory motion artifact but no PE is identified through most of the segmental level pulmonary arteries. 2. Mildly enlarged main pulmonary artery may indicate pulmonary arterial hypertension. 3. 11 mm left lower lobe noncalcified pulmonary nodule. Suggest correlation with any prior imaging studies that could confirm longer-term stability. If none are available consider short-term followup noncontrast chest CT in approximately 3 months. Ubaldo Rodas MD Objective Remarks awake and alert,ff all commands anicteric tracheostomy in place lungs decreased breath sounds regular rhythm abdomen- globularly soft, nontender, PEG in place batista in place LE- no edema, moves all extremities spontaneously, no calf tenderness Batista insert reason: Prolonged Immobilization Date of Insertion: May 03, 2016 Date of Insertion: Apr 02, 2016 Date of Removal: May 03, 2016 Line: PICC Side: Left Location: Antecubital A/P Assessment and Plan Transaminitis. LFT improving. Abd pain, improved Follow trend of LFT. Reconsulted GI, appreciate recommendations. Liver US shows fatty liver. Small stones or tumefactive sludge adherent to one of the gallbladder arcos. 3. Splenomegaly. Avoid liver toxicity drugs. Check serology. Hep panel negative GI following. Diabetes mellitus SSI for glycemic control (high scale) 30 units sliding scale insulin scale insulin in the past 24 hours, cont Levemir insulin 35 U Q12 (was decreased) Diabetic Neuropathy: patient c/o left leg tingling/pins and needle on the left leg and seem. Increase lyrica to 50 mg po daily, improving. Acute hypoxemic respiratory failure on T piece tolerates well [facility] History of staph aureus pneumonia/HCAP ARDS Dr. Perry ff- on tracheostomy-? trial capping Trach collar with oxygen support to keep sat >92%. 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 Optifoam in place. Apply bacitracin. Wound cultures with normal sherine. Consult wound care, discussed with Nica from wound care, appreciate recommendations. Cleanse wound with NS and apply nonadhesive foam ag dressing over wound and change every other day and PRN for saturation or dislodgement. Add silvadene cream daily Mild MR/TR. Monitor HR and BP keep MAP>65mmHg 2-D echo 03/26 EF 60%. No regional wall motion abnormality. Mild MR/TR. Hypokalemia Hypernatremia-resolved Hypophosphatemia Monitor renal function, I/O's, electrolytes replacement per protocol. Urine output 625cc/per 12 hours Bumex 0.5mg/day Constipation-resolved Moderate protein calorie malnutrition Nausea and vomiting Flatulence: Give simethicone On Glucerna 1.5@45ml/hr with 1 scoop whey protein 3 times a day, no residual Protonix 40mg daily On Reglan 10mg Q8, Senna and Colace twice a day.Discontinue MiraLAX twice a day and lactulose 4 times a day. PEG tube placement- 05/03- tolerating TF Zofran 4 mg every 6 hours when necessary Likely SERENITY Toxic metabolic encephalopathy-resolved Off Precedex infusion (05/04) Continue Reform 5/325mg every 6hrs scheduled, fentanyl patch 25mcgs, and Shauna 5mg PRN, fentanyl patch 25 mcgs q 3 days-will begin to wean narcotics Seroquel 25mg BID initiated 05/04 Acetaminophen for fever Staph aureus pneumonia Possible staph bacteremia Pertinent culture 04/27 - pansensitive staph aureus 04/27 blood cultures 2 negative 04/25 - urine -no growth 04/19 - blood cultures 2 out of 4 - staph aureus 04/19 - sputum - staph aureus 04/08 - sputum - staph aureus 04/03 - sputum - staph aureus 03/30 - sputum- -staph aureus 03/27 - sputum - staph aureus 03/26 - blood - staph hominis On vancomycin 2 g IV every 12 are since 04/19 - 04/29 Azactam 04/27 through 04/29 Finished clindamycin ID specialist consulted, Dr. Painter, appreciate recommendations. Finished course of abx, ID specialist signed off. Leukocytosis Monitor CBC/coags Monitor WBC 11.7, unchanged Labs every 3 days, unless clinically indicated Morbid obesity BMI of 51.8 Weight loss encouraged. DVT, GI prophylaxis -Bilateral lower extremity SCDs. IV Protonix 40 mg daily. Lovenox 40 mg sq BID LINES: -Left upper extremity PICC line placed 04/15-05/04. Peripheral IVs x 2 Discharge plan: Case management has been consulted for discharge plan. The patient T piece trials successful for 48 hours plans for LTAC transfer. Discussed with the case management, very difficult discharge, no LTAC facility will take patient, currently is looking for SNF. [id number] signed. Ana Dent MD May 22, 2016 10:07 Whitney Bejarano MD May 20, 2016 10:31 Ana Dent MD May 22, 2016 10:07
[2016-05-22] MEDS: PANTOPRAZOLE SODIUM 40 MG VIAL IV PUSH SCH (17:18)
[2016-05-23] VITALS (9 sets, daily range): BP systolic 111–121; BP diastolic 64–73; PULSE 75–118; RESP 18–25; TEMP 97.6–99.3; O2SAT 92–97
[2016-05-23] MEDS: oxyCODONE HCL ORAL CONC 20 MG/ML SYRINGE PO PRN ×2 (00:19→05:54)
[2016-05-23] MEDS: INSULIN NovoLIN REGULAR SUPPLEMENTAL SCALE SQ SCH ×5 (00:20→21:00)
[2016-05-23] MEDS: ARTIFICIAL TEARS OPTH SOLN 15 ML BTL EACH EYE SCH ×6 (02:42→22:00)
[2016-05-23] MEDS: METOCLOPRAMIDE HCL 10 MG/2 ML VIAL IV PUSH SCH ×3 (05:55→23:15)
[2016-05-23] MEDS: SODIUM CHLORIDE 0.9% FLUSH 5 ML FLUSH IVF PRN (05:55)
[2016-05-23] MEDS: ENOXAPARIN SODIUM 40 MG/0.4 ML SYRINGE SQ SCH ×2 (05:55→17:38)
[2016-05-23] MEDS: FREE WATER G-TUBE SCH ×4 (06:00→17:38)
[2016-05-23] MEDS: CHLORHEXIDINE 0.12% (ORAL KIT) 15 ML CUP MT SCH ×2 (08:00→20:00)
[2016-05-23] MEDS: BETAMETHASONE/CLOTRIMAZOLE CREAM 15 GM TOPICAL SCH ×2 (09:00→21:00)
[2016-05-23] MEDS: fentaNYL 25 MCG/HR PATCH TD SCH ×2 (09:00→10:44)
[2016-05-23] MEDS: LACTOBACILLUS ACIDOPHILUS TAB PO SCH ×3 (09:00→17:38)
[2016-05-23] MEDS: ARTIFICIAL TEARS OPTH OINT 3.5 APPLIC/3.5 GM TUBO EACH EYE SCH ×2 (09:00→21:00)
[2016-05-23] MEDS: SILVER SULFADIAZINE 1% CR 400 GM JAR TOPICAL SCH (09:00)
[2016-05-23] MEDS: NYSTATIN 100,000 U/GM PWD 15 GM BTL TOPICAL SCH ×2 (09:00→23:31)
[2016-05-23] MEDS: REMOVE OLD PATCH T-DERMAL SCH (09:00)
[2016-05-23] MEDS: BENEPROTEIN POWDER 1 PACK G-TUBE SCH ×3 (09:00→17:38)
[2016-05-23] MEDS: SENNOSIDES SYRUP 8.8 MG/5 ML CUP PO/TUBE SCH ×2 (10:25→21:00)
[2016-05-23] MEDS: DOCUSATE SODIUM 100 MG/10 ML UDC PO SCH ×2 (10:25→21:00)
[2016-05-23] MEDS: INSULIN DETEMIR 100 UNITS/ML VIAL SQ SCH ×2 (10:26→23:15)
[2016-05-23] MEDS: QUEtiapine FUMARATE 25 MG TAB PO SCH ×2 (10:26→23:13)
[2016-05-23] MEDS: ACETAMINOPHEN/HYDROcodone 325 MG/5 MG TAB PO SCH ×2 (10:26→23:14)
[2016-05-23] MEDS: POTASSIUM CHLORIDE 10 MEQ CONTROLLED RELEASE TAB PO SCH (10:26)
[2016-05-23] MEDS: PREGABALIN 25 MG CAP PO SCH (10:27)
[2016-05-23] MEDS: BUMETANIDE INJ 1 MG/4 ML VIAL IV PUSH SCH (10:27)
[2016-05-23] MEDS: POLYETHYLENE GLYCOL 17 GM PKG PO SCH ×2 (10:27→21:00)
[2016-05-23] MEDS: SODIUM CHLORIDE 0.9% FLUSH 5 ML FLUSH IVF SCH (10:28)
--- NOTE | 2016-05-23 13:14 | HHI.PR ---
Subjective Remarks awake and alert tolerating tube feedings good urine output Objective Vitals Vital Signs Date Time Temp Pulse Resp B/P Pulse Ox O2 Delivery O2 Flow Rate FiO2 05/23/16 12:00 99.0 116 25 114/70 95 05/23/16 11:38 05/23/16 11:00 94 T-piece 50 05/23/16 08:00 99.3 118 24 117/73 92 05/23/16 04:32 98.0 114 18 120/71 96 05/23/16 01:40 T-Piece 6.00 70 05/23/16 00:36 97.6 111 18 115/70 96 05/22/16 20:05 97.7 114 18 117/71 96 05/22/16 18:00 113 05/22/16 16:00 97.1 112 24 116/69 98 I/O 05/22/16 05/22/16 05/22/16 05/23/16 05/23/16 05/23/16 07:00 15:00 23:00 07:00 15:00 23:00 Intake Total 480 ml 480 ml Output Total 1600 ml 2200 ml 2250 ml Balance -1600 ml -1720 ml -1770 ml Intake Oral 480 ml 480 ml Output Urine Total 1600 ml 2200 ml 2250 ml # Bowel Movements 2 1 1 Result Diagram: 05/20/16 0842 Imaging Last Impressions Chest X-Ray 05/10/16 0000 Signed Impressions: Service Date/Time: May 02:31 - CONCLUSION: 1. Hypoinflation with left perihilar atelectasis. Lungs otherwise appear clear. 2. Compensated cardiomegaly. Arthur Kennedy MD Liver Ultrasound 05/09/16 0000 Signed Impressions: Service Date/Time: Monday, May 09, 2016 22:28 - CONCLUSION: 1. Enlarged, fatty liver. 2. Small stones or tumefactive sludge adherent to one of the gallbladder arcos. 3. Splenomegaly. 4. Pancreas is obscured by overlying bowel gas and patient's body habitus. Arthur Kennedy MD Abdomen X-Ray 05/01/16 0000 Signed Impressions: Service Date/Time: Sunday, May 01, 2016 17:28 - CONCLUSION: No evidence of obstruction. Feeding tube overlies the distal stomach, May have to be advanced slightly to reach the duodenum. Nick Jon MD Chest CT 03/28/16 0836 Signed Impressions: Service Date/Time: Monday, March 28, 2016 09:57 - CONCLUSION: Development areas of air bronchograms and consolidation more prominent in the right and left posterior basilar segments of the lower lobes. ET tube above the chanelle. Bernard Hartman MD CT Angiography 03/24/16 1121 Signed Impressions: Service Date/Time: Thursday, March 24, 2016 12:47 - CONCLUSION: 1. There is respiratory motion artifact but no PE is identified through most of the segmental level pulmonary arteries. 2. Mildly enlarged main pulmonary artery may indicate pulmonary arterial hypertension. 3. 11 mm left lower lobe noncalcified pulmonary nodule. Suggest correlation with any prior imaging studies that could confirm longer-term stability. If none are available consider short-term followup noncontrast chest CT in approximately 3 months. Ubaldo Rodas MD Objective Remarks awake and alert,ff all commands anicteric tracheostomy in place lungs decreased breath sounds regular rhythm abdomen- globularly soft, nontender, PEG in place batista in place LE- no edema, moves all extremities spontaneously, no calf tenderness Urinary Catheter: Yes Assessment to: Continue Batista insert reason: Prolonged Immobilization Date of Insertion: May 03, 2016 Date of Insertion: Apr 02, 2016 Date of Removal: May 03, 2016 Line: PICC Side: Left Location: Antecubital A/P Assessment and Plan Transaminitis. LFT improving. Abd pain, improved Follow trend of LFT. Reconsulted GI, appreciate recommendations. Liver US shows fatty liver. Small stones or tumefactive sludge adherent to one of the gallbladder arcos. 3. Splenomegaly. Avoid liver toxicity drugs. Check serology. Hep panel negative Diabetes mellitus SSI for glycemic control (high scale) 30 units sliding scale insulin scale insulin in the past 24 hours, cont Levemir insulin 35 U Q12 (was decreased) Diabetic Neuropathy: patient c/o left leg tingling/pins and needle on the left leg and seem. Increase lyrica to 50 mg po daily, improving. Acute hypoxemic respiratory failure on T piece tolerates well [facility] History of staph aureus pneumonia/HCAP ARDS Dr. Perry ff- on tracheostomy-? trial capping Trach collar with oxygen support to keep sat >92%. 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 Optifoam in place. Apply bacitracin. Wound cultures with normal sherine. Consult wound care, discussed with Nica from wound care, appreciate recommendations. Cleanse wound with NS and apply nonadhesive foam ag dressing over wound and change every other day and PRN for saturation or dislodgement. Add silvadene cream daily Mild MR/TR. Monitor HR and BP keep MAP>65mmHg 2-D echo 03/26 EF 60%. No regional wall motion abnormality. Mild MR/TR. Hypokalemia Hypernatremia-resolved Hypophosphatemia Monitor renal function, I/O's, electrolytes replacement per protocol. Urine output 625cc/per 12 hours Bumex 0.5mg/day Constipation-resolved Moderate protein calorie malnutrition Nausea and vomiting Flatulence: Give simethicone On Glucerna 1.5@45ml/hr with 1 scoop whey protein 3 times a day, no residual Protonix 40mg daily On Reglan 10mg Q8, Senna and Colace twice a day.Discontinue MiraLAX twice a day and lactulose 4 times a day. PEG tube placement- 05/03- tolerating TF Zofran 4 mg every 6 hours when necessary Likely SERENITY Toxic metabolic encephalopathy-resolved Off Precedex infusion (05/04) Continue Bee 5/325mg every 6hrs scheduled, fentanyl patch 25mcgs, and Shauna 5mg PRN, fentanyl patch 25 mcgs q 3 days-will begin to wean narcotics Seroquel 25mg BID initiated 05/04 Acetaminophen for fever Staph aureus pneumonia Possible staph bacteremia Pertinent culture 04/27 - pansensitive staph aureus 04/27 blood cultures 2 negative 04/25 - urine -no growth 04/19 - blood cultures 2 out of 4 - staph aureus 04/19 - sputum - staph aureus 04/08 - sputum - staph aureus 04/03 - sputum - staph aureus 03/30 - sputum- -staph aureus 03/27 - sputum - staph aureus 03/26 - blood - staph hominis On vancomycin 2 g IV every 12 are since 04/19 - 04/29 Azactam 04/27 through 04/29 Finished clindamycin ID specialist consulted, Dr. Painter, appreciate recommendations. Finished course of abx, ID specialist signed off. Leukocytosis Monitor CBC/coags Monitor WBC 11.7, unchanged Labs every 3 days, unless clinically indicated Morbid obesity BMI of 51.8 Weight loss encouraged. DVT, GI prophylaxis -Bilateral lower extremity SCDs. IV Protonix 40 mg daily. Lovenox 40 mg sq BID LINES: -Left upper extremity PICC line placed 04/15-05/04. Peripheral IVs x 2 Discharge plan: Case management has been consulted for discharge plan. The patient T piece trials successful for 48 hours plans for LTAC transfer. Discussed with the case management, very difficult discharge, no LTAC facility will take patient, currently is looking for SNF. [id number] signed. Ana Dent MD May 23, 2016 13:14
--- NOTE | 2016-05-23 16:46 | HHI.PR ---
Subjective Remarks Off the vent up in chair on T piece Objective Vital Signs Date Time Temp Pulse Resp B/P Pulse Ox O2 Delivery O2 Flow Rate FiO2 05/23/16 16:17 75 05/23/16 16:17 78 05/23/16 16:00 98.6 112 24 111/64 96 05/23/16 12:00 99.0 116 25 114/70 95 05/23/16 11:38 05/23/16 11:00 94 T-piece 50 05/23/16 08:00 99.3 118 24 117/73 92 05/23/16 04:32 98.0 114 18 120/71 96 05/23/16 01:40 T-Piece 6.00 70 05/23/16 00:36 97.6 111 18 115/70 96 05/22/16 20:05 97.7 114 18 117/71 96 05/22/16 18:00 113 I/O 05/22/16 05/22/16 05/22/16 05/23/16 05/23/16 05/23/16 07:00 15:00 23:00 07:00 15:00 23:00 Intake Total 480 ml 480 ml 755 ml Output Total 1600 ml 2200 ml 2250 ml 1350 ml Balance -1600 ml -1720 ml -1770 ml -595 ml Intake Oral 480 ml 480 ml 240 ml Tube Feeding 515 ml Output Urine Total 1600 ml 2200 ml 2250 ml 1350 ml # Bowel Movements 2 1 1 0 Result Diagram: 05/20/16 0842 Objective Remarks GENERAL: SKIN: Warm and dry. HEAD: Atraumatic. Normocephalic. EYES: Pupils equal and round. No scleral icterus. No injection or drainage. ENT: No nasal bleeding or discharge. Mucous membranes pink and moist. NECK: Trachea midline. No JVD. CARDIOVASCULAR: Regular rate and rhythm. RESPIRATORY: No accessory muscle use. Clear to auscultation. Breath sounds equal bilaterally. GASTROINTESTINAL: Abdomen soft, non-tender, nondistended. Hepatic and splenic margins not palpable. MUSCULOSKELETAL: Extremities without clubbing, cyanosis, or edema. No obvious deformities. NEUROLOGICAL: Awake and alert. No obvious cranial nerve deficits. Motor grossly within normal limits. Five out of 5 muscle strength in the arms and legs. Normal speech. PSYCHIATRIC: Appropriate mood and affect; insight and judgment normal. Assessment and Plan Assessment and Plan now on T piece RESPIRATORY FAILURE SEPSIS RESOLVED ARDS JACOB/CSA S/P TRACH. PLAN PULM TOILET INCREASE Activity remove trach. when possible Orlando Perry MD May 23, 2016 16:46
[2016-05-23] MEDS: PANTOPRAZOLE SODIUM 40 MG VIAL IV PUSH SCH (17:38)
[2016-05-23] MEDS: RESP: IPRATROPIUM 0.5 MG/2.5 ML NEB NEB PRN (18:18)
[2016-05-24] VITALS: BP 120/68; PULSE 110; RESP 22; TEMP 97.8; O2SAT 97
[2016-05-24] MEDS: ARTIFICIAL TEARS OPTH SOLN 15 ML BTL EACH EYE SCH ×5 (02:00→22:00)
[2016-05-24 04:30] VITALS: BP 118/72; PULSE 118; RESP 22; TEMP 99.1; O2SAT 97
[2016-05-24] MEDS: FREE WATER G-TUBE SCH ×4 (06:00→18:00)
[2016-05-24] MEDS: METOCLOPRAMIDE HCL 10 MG/2 ML VIAL IV PUSH SCH ×3 (06:36→22:03)
[2016-05-24] MEDS: ENOXAPARIN SODIUM 40 MG/0.4 ML SYRINGE SQ SCH ×2 (06:36→18:00)
[2016-05-24] MEDS: INSULIN NovoLIN REGULAR SUPPLEMENTAL SCALE SQ SCH ×4 (06:43→22:07)
[2016-05-24 08:00] VITALS: BP 116/74; PULSE 116; RESP 20; TEMP 97.2; O2SAT 95
[2016-05-24] MEDS: BETAMETHASONE/CLOTRIMAZOLE CREAM 15 GM TOPICAL SCH ×2 (09:00→21:00)
[2016-05-24] MEDS: SODIUM CHLORIDE 0.9% FLUSH 5 ML FLUSH IVF SCH (09:00)
[2016-05-24] MEDS: ARTIFICIAL TEARS OPTH OINT 3.5 APPLIC/3.5 GM TUBO EACH EYE SCH ×2 (09:00→21:00)
[2016-05-24] MEDS: NYSTATIN 100,000 U/GM PWD 15 GM BTL TOPICAL SCH ×2 (09:00→22:05)
[2016-05-24] MEDS: BENEPROTEIN POWDER 1 PACK G-TUBE SCH ×3 (09:00→18:00)
[2016-05-24] MEDS: DOCUSATE SODIUM 100 MG/10 ML UDC PO SCH ×2 (09:24→22:00)
[2016-05-24] MEDS: POLYETHYLENE GLYCOL 17 GM PKG PO SCH ×2 (09:25→21:00)
[2016-05-24] MEDS: PREGABALIN 25 MG CAP PO SCH (09:25)
[2016-05-24] MEDS: BUMETANIDE INJ 1 MG/4 ML VIAL IV PUSH SCH (09:25)
[2016-05-24] MEDS: LACTOBACILLUS ACIDOPHILUS TAB PO SCH ×3 (09:25→18:00)
[2016-05-24] MEDS: SENNOSIDES SYRUP 8.8 MG/5 ML CUP PO/TUBE SCH ×2 (09:25→21:00)
[2016-05-24] MEDS: INSULIN DETEMIR 100 UNITS/ML VIAL SQ SCH ×2 (09:25→22:01)
[2016-05-24] MEDS: QUEtiapine FUMARATE 25 MG TAB PO SCH ×2 (09:25→22:01)
[2016-05-24] MEDS: ACETAMINOPHEN/HYDROcodone 325 MG/5 MG TAB PO SCH ×2 (09:26→22:01)
[2016-05-24] MEDS: POTASSIUM CHLORIDE 10 MEQ CONTROLLED RELEASE TAB PO SCH (09:26)
--- NOTE | 2016-05-24 10:34 | HHI.PR ---
Subjective Remarks awake and alert, tolerating tube feedings, good urine output complains of episodic jerking/spasms of LE Objective Vitals Vital Signs Date Time Temp Pulse Resp B/P Pulse Ox O2 Delivery O2 Flow Rate FiO2 05/24/16 08:00 97.2 116 20 116/74 95 05/24/16 04:30 T-Piece 6.00 05/24/16 04:30 99.1 118 22 118/72 97 05/24/16 00:00 97.8 110 22 120/68 97 05/23/16 20:00 98.1 116 23 121/69 97 05/23/16 17:32 96 T-piece 6.00 50 05/23/16 17:29 T-Piece 6.00 50 05/23/16 16:17 75 05/23/16 16:17 78 05/23/16 16:00 98.6 112 24 111/64 96 05/23/16 12:00 99.0 116 25 114/70 95 05/23/16 11:38 05/23/16 11:00 94 T-piece 50 I/O 05/23/16 05/23/16 05/23/16 05/24/16 05/24/16 05/24/16 07:00 15:00 23:00 07:00 15:00 23:00 Intake Total 480 ml 755 ml 600 ml 400 ml Output Total 2250 ml 1350 ml 600 ml 600 ml Balance -1770 ml -595 ml 0 ml -200 ml Intake Oral 480 ml 240 ml 600 ml 400 ml Tube Feeding 515 ml Output Urine Total 2250 ml 1350 ml 600 ml 600 ml # Bowel Movements 1 0 1 0 Result Diagram: 05/20/16 0842 Imaging Last Impressions Chest X-Ray 05/10/16 0000 Signed Impressions: Service Date/Time: May 02:31 - CONCLUSION: 1. Hypoinflation with left perihilar atelectasis. Lungs otherwise appear clear. 2. Compensated cardiomegaly. Arthur Kennedy MD Liver Ultrasound 05/09/16 0000 Signed Impressions: Service Date/Time: Monday, May 09, 2016 22:28 - CONCLUSION: 1. Enlarged, fatty liver. 2. Small stones or tumefactive sludge adherent to one of the gallbladder arcos. 3. Splenomegaly. 4. Pancreas is obscured by overlying bowel gas and patient's body habitus. Arthur Kennedy MD Abdomen X-Ray 05/01/16 0000 Signed Impressions: Service Date/Time: Sunday, May 01, 2016 17:28 - CONCLUSION: No evidence of obstruction. Feeding tube overlies the distal stomach, May have to be advanced slightly to reach the duodenum. Nick Jon MD Chest CT 03/28/16 0836 Signed Impressions: Service Date/Time: Monday, March 28, 2016 09:57 - CONCLUSION: Development areas of air bronchograms and consolidation more prominent in the right and left posterior basilar segments of the lower lobes. ET tube above the chanelle. Bernard Hartman MD CT Angiography 03/24/16 1121 Signed Impressions: Service Date/Time: Thursday, March 24, 2016 12:47 - CONCLUSION: 1. There is respiratory motion artifact but no PE is identified through most of the segmental level pulmonary arteries. 2. Mildly enlarged main pulmonary artery may indicate pulmonary arterial hypertension. 3. 11 mm left lower lobe noncalcified pulmonary nodule. Suggest correlation with any prior imaging studies that could confirm longer-term stability. If none are available consider short-term followup noncontrast chest CT in approximately 3 months. Ubaldo Rodas MD Objective Remarks awake and alert,ff all commands anicteric tracheostomy in place lungs decreased breath sounds, no rales or rhonchi regular rhythm abdomen- globularly soft, nontender, PEG in place batista in place LE- no edema, moves all extremities spontaneously, no calf tenderness Date of Insertion: May 03, 2016 Date of Insertion: Apr 02, 2016 Date of Removal: May 03, 2016 Line: PICC Side: Left Location: Antecubital A/P Assessment and Plan Transaminitis. LFT improving. Abd pain, improved Follow trend of LFT. Liver US shows fatty liver. Small stones or tumefactive sludge adherent to one of the gallbladder arcos. 3. Splenomegaly. Avoid liver toxicity drugs. Hep panel negative Diabetes mellitus SSI for glycemic control (high scale) 30 units sliding scale insulin scale insulin in the past 24 hours, cont Levemir insulin 35 U Q12 (was decreased) Diabetic Neuropathy: patient c/o left leg tingling/pins and needle on the left leg and seem. On lyrica to 50 mg po daily, improving. Add Baclofen Acute hypoxemic respiratory failure on T piece tolerates well [facility] History of staph aureus pneumonia/HCAP ARDS Dr. Perry ff- on tracheostomy-? trial capping Trach collar with oxygen support to keep sat >92%. 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 Optifoam in place. Apply bacitracin. Wound cultures with normal sherine. Consult wound care, discussed with Nica from wound care, appreciate recommendations. Cleanse wound with NS and apply nonadhesive foam ag dressing over wound and change every other day and PRN for saturation or dislodgement. Add silvadene cream daily Mild MR/TR. Monitor HR and BP keep MAP>65mmHg 2-D echo 03/26 EF 60%. No regional wall motion abnormality. Mild MR/TR. Hypokalemia Hypernatremia-resolved Hypophosphatemia Monitor renal function, I/O's, electrolytes replacement per protocol. Urine output 625cc/per 12 hours Bumex 0.5mg/day- change to PEG route Constipation-resolved Moderate protein calorie malnutrition Nausea and vomiting- resolved Flatulence: Give simethicone On Glucerna 1.5@45ml/hr with 1 scoop whey protein 3 times a day, no residual Protonix 40mg daily On Reglan 10mg Q8, Senna and Colace twice a day.Discontinue MiraLAX twice a day and lactulose 4 times a day. PEG tube placement- 05/03- tolerating TF Zofran 4 mg every 6 hours when necessary Likely SERENITY Toxic metabolic encephalopathy-resolved Off Precedex infusion (05/04) Continue [place] 5/325mg every 6hrs scheduled, fentanyl patch 25mcgs, and Shauna 5mg PRN, fentanyl patch 25 mcgs q 3 days-will begin to wean narcotics Seroquel 25mg BID initiated 05/04 Acetaminophen for fever Staph aureus pneumonia Possible staph bacteremia Pertinent culture 04/27 - pansensitive staph aureus 04/27 blood cultures 2 negative 04/25 - urine -no growth 04/19 - blood cultures 2 out of 4 - staph aureus 04/19 - sputum - staph aureus 04/08 - sputum - staph aureus 04/03 - sputum - staph aureus 03/30 - sputum- -staph aureus 03/27 - sputum - staph aureus 03/26 - blood - staph hominis On vancomycin 2 g IV every 12 are since 04/19 - 04/29 Azactam 04/27 through 04/29 Finished clindamycin ID specialist consulted, Dr. Painter, appreciate recommendations. Finished course of abx, ID specialist signed off. Leukocytosis Monitor CBC/coags Monitor WBC 11.7, unchanged Labs every 3 days, unless clinically indicated Morbid obesity BMI of 51.8 Weight loss encouraged. DVT, GI prophylaxis -Bilateral lower extremity SCDs. IV Protonix 40 mg daily. Lovenox 40 mg sq BID LINES: -Left upper extremity PICC line placed 04/15-05/04. Peripheral IVs x 2 Discharge plan: Case management has been consulted for discharge plan. The patient T piece trials successful for 48 hours plans for LTAC transfer. Discussed with the case management, very difficult discharge, no LTAC facility will take patient, currently is looking for SNF. [id number] signed. Ana Dent MD May 24, 2016 10:34
[2016-05-24] MEDS ORDERED: PILL SPLITTER OTHER PRN (10:45)
[2016-05-24 10:50] VITALS: O2SAT 92
[2016-05-24 16:03] VITALS: BP 106/63; PULSE 116; RESP 20; TEMP 98; O2SAT 94
[2016-05-24] MEDS: PANTOPRAZOLE SODIUM 40 MG VIAL IV PUSH SCH (18:00)
[2016-05-24] MEDS: CHLORHEXIDINE 0.12% (ORAL KIT) 15 ML CUP MT SCH (20:00)
[2016-05-24 20:30] VITALS: BP 121/75; PULSE 120; RESP 22; TEMP 99.8; O2SAT 96
[2016-05-24] MEDS: BACLOFEN 10 MG TAB PO SCH (22:00)
[2016-05-25] VITALS (9 sets, daily range): BP systolic 102–122; BP diastolic 59–83; PULSE 111–120; RESP 20–32; TEMP 97.6–99.2; O2SAT 92–97
[2016-05-25] MEDS: ARTIFICIAL TEARS OPTH SOLN 15 ML BTL EACH EYE SCH ×6 (02:00→21:10)
[2016-05-25] MEDS: FREE WATER G-TUBE SCH ×5 (06:00→23:08)
[2016-05-25] MEDS: METOCLOPRAMIDE HCL 10 MG/2 ML VIAL IV PUSH SCH (06:05)
[2016-05-25] MEDS: ENOXAPARIN SODIUM 40 MG/0.4 ML SYRINGE SQ SCH ×2 (06:06→18:47)
[2016-05-25] MEDS: INSULIN NovoLIN REGULAR SUPPLEMENTAL SCALE SQ SCH ×2 (06:19→18:47)
[2016-05-25] MEDS: CHLORHEXIDINE 0.12% (ORAL KIT) 15 ML CUP MT SCH ×2 (08:00→20:00)
[2016-05-25] MEDS ORDERED: BUMETANIDE 1 MG TAB PO ONE (09:00)
[2016-05-25] MEDS: POLYETHYLENE GLYCOL 17 GM PKG PO SCH ×2 (09:00→21:08)
[2016-05-25] MEDS: BETAMETHASONE/CLOTRIMAZOLE CREAM 15 GM TOPICAL SCH ×2 (09:00→21:11)
[2016-05-25] MEDS: BENEPROTEIN POWDER 1 PACK G-TUBE SCH ×3 (09:00→18:00)
[2016-05-25] MEDS: ARTIFICIAL TEARS OPTH OINT 3.5 APPLIC/3.5 GM TUBO EACH EYE SCH ×2 (09:00→21:09)
[2016-05-25] MEDS: SILVER SULFADIAZINE 1% CR 400 GM JAR TOPICAL SCH (09:00)
[2016-05-25] MEDS: NYSTATIN 100,000 U/GM PWD 15 GM BTL TOPICAL SCH ×2 (09:00→21:10)
[2016-05-25] MEDS: PREGABALIN 25 MG CAP PO SCH (09:21)
[2016-05-25] MEDS: LACTOBACILLUS ACIDOPHILUS TAB PO SCH ×3 (09:21→18:47)
[2016-05-25] MEDS: POTASSIUM CHLORIDE 10 MEQ CONTROLLED RELEASE TAB PO SCH (09:22)
[2016-05-25] MEDS: ACETAMINOPHEN/HYDROcodone 325 MG/5 MG TAB PO SCH ×2 (09:22→21:08)
[2016-05-25] MEDS: DOCUSATE SODIUM 100 MG/10 ML UDC PO SCH ×2 (09:23→21:07)
[2016-05-25] MEDS: SENNOSIDES SYRUP 8.8 MG/5 ML CUP PO/TUBE SCH ×2 (09:23→21:07)
[2016-05-25] MEDS: BACLOFEN 10 MG TAB PO SCH ×2 (09:23→21:07)
[2016-05-25] MEDS: INSULIN DETEMIR 100 UNITS/ML VIAL SQ SCH ×2 (09:23→21:08)
[2016-05-25] MEDS: QUEtiapine FUMARATE 25 MG TAB PO SCH ×2 (09:23→21:07)
[2016-05-25] MEDS: SODIUM CHLORIDE 0.9% FLUSH 5 ML FLUSH IVF SCH (09:24)
--- NOTE | 2016-05-25 12:06 | HHI.PR ---
Subjective Remarks awake and alert smiling and interactive tolerating tube feedings + BM Objective Vitals Vital Signs Date Time Temp Pulse Resp B/P Pulse Ox O2 Delivery O2 Flow Rate FiO2 05/25/16 08:00 97.9 117 20 122/83 92 05/25/16 05:00 99.1 117 23 122/80 96 05/25/16 02:45 T-Piece 6.00 40 05/25/16 00:00 99.1 118 23 119/80 96 05/24/16 20:30 99.8 120 22 121/75 96 05/24/16 16:03 98.0 116 20 106/63 94 I/O 05/24/16 05/24/16 05/24/16 05/25/16 05/25/16 05/25/16 07:00 15:00 23:00 07:00 15:00 23:00 Intake Total 400 ml 800 ml 900 ml Output Total 600 ml 1375 ml 800 ml 2000 ml Balance -200 ml -1375 ml 0 ml -1100 ml Intake Oral 400 ml 800 ml 900 ml Output Urine Total 600 ml 1375 ml 800 ml 2000 ml # Bowel Movements 0 1 0 0 Imaging Last Impressions Chest X-Ray 05/10/16 0000 Signed Impressions: Service Date/Time: May 02:31 - CONCLUSION: 1. Hypoinflation with left perihilar atelectasis. Lungs otherwise appear clear. 2. Compensated cardiomegaly. Arthur Kennedy MD Liver Ultrasound 05/09/16 0000 Signed Impressions: Service Date/Time: Monday, May 09, 2016 22:28 - CONCLUSION: 1. Enlarged, fatty liver. 2. Small stones or tumefactive sludge adherent to one of the gallbladder arcos. 3. Splenomegaly. 4. Pancreas is obscured by overlying bowel gas and patient's body habitus. Arthur Kennedy MD Abdomen X-Ray 05/01/16 0000 Signed Impressions: Service Date/Time: Sunday, May 01, 2016 17:28 - CONCLUSION: No evidence of obstruction. Feeding tube overlies the distal stomach, May have to be advanced slightly to reach the duodenum. Nick Jon MD Chest CT 03/28/16 0836 Signed Impressions: Service Date/Time: Monday, March 28, 2016 09:57 - CONCLUSION: Development areas of air bronchograms and consolidation more prominent in the right and left posterior basilar segments of the lower lobes. ET tube above the chanelle. Bernard Hartman MD CT Angiography 03/24/16 1121 Signed Impressions: Service Date/Time: Saturday, March 24, 2016 12:47 - CONCLUSION: 1. There is respiratory motion artifact but no PE is identified through most of the segmental level pulmonary arteries. 2. Mildly enlarged main pulmonary artery may indicate pulmonary arterial hypertension. 3. 11 mm left lower lobe noncalcified pulmonary nodule. Suggest correlation with any prior imaging studies that could confirm longer-term stability. If none are available consider short-term followup noncontrast chest CT in approximately 3 months. Ubaldo Rodas MD Objective Remarks awake and alert,ff all commands anicteric, tracheostomy in place lungs decreased breath sounds, no rales or rhonchi regular rhythm abdomen- globularly soft, nontender, PEG in place batista in place LE- no edema, moves all extremities spontaneously, no calf tenderness Date of Insertion: May 03, 2016 Date of Insertion: Apr 02, 2016 Date of Removal: May 03, 2016 Line: PICC Side: Left Location: Antecubital A/P Assessment and Plan Transaminitis. LFT improving. Abd pain, improved Follow trend of LFT. Liver US shows fatty liver. Small stones or tumefactive sludge adherent to one of the gallbladder arcos. 3. Splenomegaly. Avoid liver toxicity drugs. Hep panel negative Diabetes mellitus SSI for glycemic control (high scale) 30 units sliding scale insulin scale insulin in the past 24 hours, cont Levemir insulin 35 U Q12 (was decreased) continue to adjust decrease sliding scale to q 12 Diabetic Neuropathy: patient c/o left leg tingling/pins and needle on the left leg and seem. On lyrica to 50 mg po daily, improving. on Baclofen- improved Acute hypoxemic respiratory failure on T piece tolerates well [facility] History of staph aureus pneumonia/HCAP ARDS Dr. Perry ff- on tracheostomy-? trial capping Trach collar with oxygen support to keep sat >92%. 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 Optifoam in place. Apply bacitracin. Wound cultures with normal sherine. Consult wound care, discussed with Nica from wound care, appreciate recommendations. Cleanse wound with NS and apply nonadhesive foam ag dressing over wound and change every other day and PRN for saturation or dislodgement. Add silvadene cream daily Mild MR/TR. Monitor HR and BP keep MAP>65mmHg 2-D echo 03/26 EF 60%. No regional wall motion abnormality. Mild MR/TR. Hypokalemia Hypernatremia-resolved Hypophosphatemia Monitor renal function, I/O's, electrolytes replacement per protocol. Urine output 625cc/per 12 hours Bumex 0.5mg/day- PEG route Constipation-resolved Moderate protein calorie malnutrition Nausea and vomiting- resolved Flatulence: Give simethicone On Glucerna 1.5@45ml/hr with 1 scoop whey protein 3 times a day, no residual Protonix 40mg daily On Reglan 10mg Q8, Senna and Colace twice a day.Discontinue MiraLAX twice a day and lactulose 4 times a day. PEG tube placement- 05/03- tolerating TF Zofran 4 mg every 6 hours when necessary Likely SERENITY Toxic metabolic encephalopathy-resolved Off Precedex infusion (05/04) Continue [place] 5/325mg every 6hrs scheduled, fentanyl patch 25mcgs, and Shauna 5mg PRN, fentanyl patch 25 mcgs q 3 days-will begin to wean narcotics Seroquel 25mg BID initiated 05/04 Acetaminophen for fever Staph aureus pneumonia Possible staph bacteremia Pertinent culture 04/27 - pansensitive staph aureus 04/27 blood cultures 2 negative 04/25 - urine -no growth 04/19 - blood cultures 2 out of 4 - staph aureus 04/19 - sputum - staph aureus 04/08 - sputum - staph aureus 04/03 - sputum - staph aureus 03/30 - sputum- -staph aureus 03/27 - sputum - staph aureus 03/26 - blood - staph hominis On vancomycin 2 g IV every 12 are since 04/19 - 04/29 Azactam 04/27 through 04/29 Finished clindamycin ID specialist consulted, Dr. Painter, appreciate recommendations. Finished course of abx, ID specialist signed off. Leukocytosis Monitor CBC/coags Monitor WBC 11.7, unchanged Labs every 3 days, unless clinically indicated Morbid obesity BMI of 51.8 Weight loss encouraged. DVT, GI prophylaxis -Bilateral lower extremity SCDs. PEG Protonix 40 mg daily. REglan 10 mg /PEG q 8 Lovenox 40 mg sq BID LINES: -Left upper extremity PICC line placed 04/15-05/04. Peripheral IVs x 2 Discharge plan: Case management has been consulted for discharge plan. The patient T piece trials successful for 48 hours plans for LTAC transfer. Discussed with the case management, very difficult discharge, no LTAC facility will take patient, currently is looking for SNF. [id number] signed. Ana Dent MD May 25, 2016 12:06
[2016-05-25] MEDS: METOCLOPRAMIDE HCL 10 MG TAB G-TUBE SCH ×2 (13:22→23:08)
[2016-05-26] VITALS (10 sets, daily range): BP systolic 93–142; BP diastolic 60–86; PULSE 78–120; RESP 18–22; TEMP 95.5–100.3; O2SAT 92–100
[2016-05-26] MEDS: ARTIFICIAL TEARS OPTH SOLN 15 ML BTL EACH EYE SCH ×4 (02:12→22:51)
[2016-05-26] MEDS: FREE WATER G-TUBE SCH ×3 (05:47→23:53)
[2016-05-26] MEDS: METOCLOPRAMIDE HCL 10 MG TAB G-TUBE SCH ×3 (05:51→22:53)
[2016-05-26] MEDS: ENOXAPARIN SODIUM 40 MG/0.4 ML SYRINGE SQ SCH ×2 (05:52→16:36)
[2016-05-26] MEDS: CHLORHEXIDINE 0.12% (ORAL KIT) 15 ML CUP MT SCH ×2 (08:00→20:00)
[2016-05-26] MEDS: BETAMETHASONE/CLOTRIMAZOLE CREAM 15 GM TOPICAL SCH ×2 (09:00→22:54)
[2016-05-26] MEDS: ARTIFICIAL TEARS OPTH OINT 3.5 APPLIC/3.5 GM TUBO EACH EYE SCH ×2 (09:00→21:00)
[2016-05-26] MEDS: POLYETHYLENE GLYCOL 17 GM PKG PO SCH ×2 (09:00→21:00)
[2016-05-26] MEDS: BENEPROTEIN POWDER 1 PACK G-TUBE SCH ×3 (09:00→18:00)
[2016-05-26] MEDS: SODIUM CHLORIDE 0.9% FLUSH 5 ML FLUSH IVF SCH (09:00)
[2016-05-26] MEDS: NYSTATIN 100,000 U/GM PWD 15 GM BTL TOPICAL SCH ×2 (09:00→22:52)
[2016-05-26] MEDS: ACETAMINOPHEN/HYDROcodone 325 MG/5 MG TAB PO SCH ×2 (09:00→22:47)
[2016-05-26] MEDS: DOCUSATE SODIUM 100 MG/10 ML UDC PO SCH ×2 (09:00→21:00)
[2016-05-26] MEDS: REMOVE OLD PATCH T-DERMAL SCH (09:00)
[2016-05-26] MEDS: SILVER SULFADIAZINE 1% CR 400 GM JAR TOPICAL SCH (09:00)
[2016-05-26] MEDS: QUEtiapine FUMARATE 25 MG TAB PO SCH ×2 (09:00→22:53)
[2016-05-26] MEDS: SENNOSIDES SYRUP 8.8 MG/5 ML CUP PO/TUBE SCH ×2 (09:00→21:00)
[2016-05-26] MEDS: INSULIN NovoLIN REGULAR SUPPLEMENTAL SCALE SQ SCH ×2 (09:00→22:40)
[2016-05-26] MEDS: INSULIN DETEMIR 100 UNITS/ML VIAL SQ SCH ×2 (09:12→22:45)
[2016-05-26] MEDS: POTASSIUM CHLORIDE 10 MEQ CONTROLLED RELEASE TAB PO SCH (09:13)
[2016-05-26] MEDS: PREGABALIN 25 MG CAP PO SCH (09:13)
[2016-05-26] MEDS: PANTOPRAZOLE SOD 40 MG DELAYED RELEASE TAB PO SCH (09:13)
[2016-05-26] MEDS: LACTOBACILLUS ACIDOPHILUS TAB PO SCH ×3 (09:13→16:36)
[2016-05-26] MEDS: BACLOFEN 10 MG TAB PO SCH ×2 (09:14→22:53)
[2016-05-26] MEDS: fentaNYL 25 MCG/HR PATCH TD SCH (09:16)
--- NOTE | 2016-05-26 10:09 | HHI.PR ---
Subjective Remarks in no acute distress. afebrile. denies pain. Objective Vitals Vital Signs Date Time Temp Pulse Resp B/P Pulse Ox O2 Delivery O2 Flow Rate FiO2 05/26/16 09:25 Nasal Cannula 4.00 05/26/16 09:21 92 T-piece 6.00 40 05/26/16 08:00 95.5 103 20 93/68 93 05/26/16 04:00 97.9 114 22 142/86 93 05/26/16 00:00 97.0 120 20 133/71 93 05/25/16 22:08 20 05/25/16 20:00 97.9 116 32 108/67 93 05/25/16 18:05 97 T-piece 6.00 30 05/25/16 16:00 99.2 113 20 105/62 97 05/25/16 12:00 95 T-Piece 40 05/25/16 12:00 97.6 118 20 102/59 95 I/O 05/25/16 05/25/16 05/25/16 05/26/16 05/26/16 05/26/16 07:00 15:00 23:00 07:00 15:00 23:00 Intake Total 900 ml 600 ml 699 ml 800 ml Output Total 2000 ml 700 ml 450 ml Balance -1100 ml -100 ml 699 ml 350 ml Intake Oral 900 ml 600 ml IV Total 200 ml Tube Feeding 299 ml 600 ml Other 400 ml Output Urine Total 2000 ml 700 ml 450 ml # Bowel Movements 0 2 Imaging Last Impressions Chest X-Ray 05/10/16 0000 Signed Impressions: Service Date/Time: May 02:31 - CONCLUSION: 1. Hypoinflation with left perihilar atelectasis. Lungs otherwise appear clear. 2. Compensated cardiomegaly. Arthur Kennedy MD Liver Ultrasound 05/09/16 0000 Signed Impressions: Service Date/Time: Monday, May 09, 2016 22:28 - CONCLUSION: 1. Enlarged, fatty liver. 2. Small stones or tumefactive sludge adherent to one of the gallbladder arcos. 3. Splenomegaly. 4. Pancreas is obscured by overlying bowel gas and patient's body habitus. Arthur Kennedy MD Abdomen X-Ray 05/01/16 0000 Signed Impressions: Service Date/Time: Sunday, May 01, 2016 17:28 - CONCLUSION: No evidence of obstruction. Feeding tube overlies the distal stomach, May have to be advanced slightly to reach the duodenum. Nick Jon MD Chest CT 03/28/16 0836 Signed Impressions: Service Date/Time: Monday, March 28, 2016 09:57 - CONCLUSION: Development areas of air bronchograms and consolidation more prominent in the right and left posterior basilar segments of the lower lobes. ET tube above the chanelle. Bernard Hartman MD CT Angiography 03/24/16 1121 Signed Impressions: Service Date/Time: Thursday, March 24, 2016 12:47 - CONCLUSION: 1. There is respiratory motion artifact but no PE is identified through most of the segmental level pulmonary arteries. 2. Mildly enlarged main pulmonary artery may indicate pulmonary arterial hypertension. 3. 11 mm left lower lobe noncalcified pulmonary nodule. Suggest correlation with any prior imaging studies that could confirm longer-term stability. If none are available consider short-term followup noncontrast chest CT in approximately 3 months. Ubaldo Rodas MD Objective Remarks GENERAL: in no apparent distress. Neck; trach in place CARDIOVASCULAR: Regular rate and regular rhythm without murmurs, gallops, or rubs. RESPIRATORY: Clear to auscultation. Breath sounds equal bilaterally. No wheezes , rales, or rhonchi. GASTROINTESTINAL: Abdomen soft, non-tender, nondistended. Normal, active bowel sounds MUSCULOSKELETAL: Extremities without clubbing, cyanosis, or edema. NEURO: Alert & Oriented x4 to person, place, time, situation. Moves all ext x4 Medications and IVs Current Medications IV Flush (NS Flush) 2 ml UNSCH PRN IVF FLUSH AFTER USING IV ACCESS Last administered on 05/23/16 05:55; Start 03/24/16 at 11:30 Iohexol (Omnipaque 350 Inj) 89 ml STK-MED ONCE IV Last administered on 13:08; Start 03/24/16 at 13:08; Stop 03/24/16 at 13:09; Status DC Albuterol/ Ipratropium (Duoneb Neb) 1 ampule Q6HR NEB NEB Last administered on 04/04/16 07:42; Start 03/24/16 at 17:00; Stop 04/04/16 at 07:43; Status DC Dextrose (D50w (Vial) Inj) 25 ml UNSCH PRN IV PUSH HYPOGLYCEMIA-SEE COMMENTS; Start 03/24/16 at 16:30; Stop 03/31/16 at 11:22; Status DC Glucagon (Glucagon Inj) 1 mg UNSCH PRN OTHER HYPOGLYCEMIA-SEE COMMENTS; Start 03/24/16 at 16:30; Stop 03/31/16 at 11:22; Status DC Insulin Human Regular (NovoLIN R SUPPLEMENTAL SCALE) 1 ACHS SLIDING SCALE SQ Last administered on 03/31/16 06:09; Start 03/24/16 at 21:00; Stop 03/31/16 at 11:16; Status DC Albuterol/ Ipratropium (Duoneb Neb) 1 ampule Q2HR NEB PRN NEB WHEEZING AND SOB Last administered on 04/20/16 08:10; Start 03/24/16 at 16:45; Stop 04/23/16 at 13:22; Status DC Enoxaparin Sodium (Lovenox Inj) 40 mg Q24H SQ Last administered on 03/25/16 17 :00; Start 03/24/16 at 17:00; Stop 03/26/16 at 16:40; Status DC Pantoprazole Sodium (Protonix) 40 mg DAILY PO Last administered on 03/26/16 08 :35; Start 03/25/16 at 09:00; Stop 03/26/16 at 16:40; Status DC Influenza Virus Vaccine (Flu (Quadrivalent) Vaccine Inj) 0.5 ml ONCE ONCE IM Last administered on 03/25/16 08:57; Start 03/25/16 at 10:00; Stop 03/25/16 at 10:01; Status DC Chlorhexidine Gluconate (Chlorhexidine 2% Cloth) 3 pack DAILY@04 TOP Last administered on 03/29/16 03:42; Start 03/25/16 at 04:00; Stop 03/29/16 at 04:01 ; Status DC Chlorhexidine Gluconate (Chlorhexidine 2% Cloth) 3 pack UNSCH PRN TOP HYGIENIC CARE; Start 03/24/16 at 19:15; Stop 03/29/16 at 19:07; Status DC Tiotropium [place] (Spiriva Inh) 18 mcg DAILY INH Last administered on 08:36; Start 03/25/16 at 13:45; Stop 05/05/16 at 13:25; Status DC Metformin HCl (Glucophage) 500 mg BIDPC PO Last administered on 03/28/16 08:18 ; Start 03/26/16 at 09:00; Stop 04/07/16 at 10:16; Status DC Betamethasone/ Clotrimazole (Lotrisone Cream) 1 applic Q12HR TOPICAL Last administered on 05/25/16 21:11; Start 03/26/16 at 09:00 Methylprednisolone Sodium Succinate 60 mg 60 mg Q12HR IV PUSH Last administered on 03/28/16 08:17; Start 03/26/16 at 13:30; Stop 03/28/16 at 10:25 ; Status DC Propofol (Diprivan 1000 Mg/100ml Inj) 100 ml @ As Directed STK-MED ONCE .ROUTE ; Start 03/26/16 at 13:16; Stop 03/26/16 at 13:17; Status DC Etomidate 40 mg 40 mg STK-MED ONCE .ROUTE ; Start 03/26/16 at 13:20; Stop at 13:21; Status DC Propofol 100 ml @ 0 mls/hr TITRATE IV Last administered on 04/15/16 06:35; Start 03/26/16 at 14:30; Stop 05/02/16 at 08:34; Status DC Fentanyl Citrate (fentaNYL DRIP) 250 ml @ 0 mls/hr TITRATE IV Last administered on 05/02/16 15:59; Start 03/26/16 at 14:30; Stop 05/02/16 at 19:46; Status DC Rocuronium [place] (Zemuron Inj) 50 mg STK-MED ONCE .ROUTE ; Start 03/26/16 at 15:38; Stop 03/26/16 at 15:39; Status DC Rocuronium [place] (Zemuron Inj) 50 mg STK-MED ONCE .ROUTE ; Start 03/26/16 at 15:40; Stop 03/26/16 at 15:41; Status DC Furosemide (Lasix Inj) 40 mg ONCE ONCE IV PUSH Last administered on 03/26/16 18:00; Start 03/26/16 at 16:45; Stop 03/26/16 at 17:08; Status DC Furosemide (Lasix Inj) 20 mg BID@09,18 IV PUSH Last administered on 03/29/16 08:06; Start 03/26/16 at 18:00; Stop 03/29/16 at 08:43; Status DC Pantoprazole Sodium (Protonix Inj) 40 mg Q24H IV PUSH Last administered on 05/24 18:00; Start 03/26/16 at 18:00; Stop 05/25/16 at 12:09; Status DC Enoxaparin Sodium 40 mg 40 mg Q12H SQ Last administered on 05/26/16 05:52; Start 03/26/16 at 18:00 Aztreonam 2000 mg/ Sodium Chloride 100 ml @ 200 mls/hr Q8H IV Last administered on 03/31/16 10:23; Start 03/26/16 at 18:00; Stop 03/31/16 at 13:55 ; Status DC Potassium Chloride 100 ml @ 50 mls/hr Q2H PRN IV For Potassium 2.8 - 3.2 mEq/ L Last administered on 05/03/16 23:31; Start 03/26/16 at 16:45; Stop 05/17/16 at 17:12; Status DC Potassium Chloride (KCl 20 Meq Premix Inj) 100 ml @ 50 mls/hr Q2H PRN IV For Potassium 2.8 - 3.2 mEq/L Last administered on 05/07/16 23:26; Start 03/26/16 at 16:45; Stop 05/17/16 at 17:12; Status DC Potassium Chloride 40 meq 40 meq UNSCH PRN PO/TUBE For Potassium 3.3 - 3.5 mEq/ L Last administered on 05/17/16 09:28; Start 03/26/16 at 16:45; Stop 05/17/16 at 17:12; Status DC Potassium Chloride 100 ml @ 25 mls/hr UNSCH PRN IV For Potassium 3.3 - 3.5 mEq /L Last administered on 04/20/16 09:17; Start 03/26/16 at 16:45; Stop 05/17/16 at 17:12; Status DC Potassium Chloride 100 ml @ 50 mls/hr Q2H PRN IV For Potassium 3.3 - 3.5 mEq/ L Last administered on 05/08/16 11:22; Start 03/26/16 at 16:45; Stop 05/17/16 at 17:12; Status DC Magnesium Sulfate/ Sodium Chloride (Magnesium Sulfate Inj/NS Inj) 100 ml @ 50 mls/hr UNSCH PRN IV For Magnesium 0.9 - 1.1 mg/dL; Start 03/26/16 at 16:45; Stop 05/17/16 at 17:12; Status DC Magnesium Oxide 800 mg 800 mg UNSCH PRN PO For Magnesium 1.2 - 1.6 mg/dL; Start 03/26/16 at 16:45; Stop 05/17/16 at 17:12; Status DC Magnesium Sulfate/ Sodium Chloride (Magnesium Sulfate Inj/NS Inj) 100 ml @ 50 mls/hr UNSCH PRN IV For Magnesium 1.2 - 1.6 mg/dL; Start 03/26/16 at 16:45; Stop 05/17/16 at 17:12; Status DC Potassium Phosphate 2000 mg 2,000 mg Q4H PRN PO For Phosphorus < 2.5 mg/dL Last administered on 04/01/16 05:08; Start 03/26/16 at 16:45; Stop 05/17/16 at 17:12; Status DC Sodium Phosphate/ Sodium Chloride (Sodium Phosphate Inj/NS 250 ml Inj) 250 ml @ 42 mls/hr UNSCH PRN IV For Phosphorus < 2.5 mg/dL Last administered on 14:19; Start 03/26/16 at 16:45; Stop 05/17/16 at 17:12; Status DC Potassium Chloride (KCl 40 Meq/30 ml Liq) 40 meq UNSCH PRN PO/TUBE SEE LABEL COMMENTS; Start 03/26/16 at 16:45; Stop 05/17/16 at 17:12; Status DC Potassium Phosphate 2000 mg 2,000 mg UNSCH PRN PO/TUBE SEE LABEL COMMENTS; Start 03/26/16 at 16:45; Stop 05/17/16 at 17:12; Status DC Potassium Phosphate/Sodium Chloride (Potassium Phosphate Inj/NS 250 ml Inj) 260 ml @ 42 mls/hr UNSCH PRN IV SEE LABEL COMMENTS Last administered on 05/03/16 08:23; Start 03/26/16 at 16:45; Stop 05/17/16 at 17:12; Status DC Potassium Chloride 40 meq 40 meq DAILY PO Last administered on 04/01/16 09:18 ; Start 03/26/16 at 18:00; Stop 04/02/16 at 07:20; Status DC Metronidazole (Flagyl 500 Mg Inj) 100 ml @ 100 mls/hr Q8H IV Last administered on 04/10/16 07:44; Start 03/27/16 at 08:00; Stop 04/10/16 at 13:30; Status DC Protein 1 pack 1 pack TID G-TUBE Last administered on 05/25/16 18:00; Start at 09:00 Vancomycin HCl 1500 mg/Sodium Chloride 515 ml @ 257.5 mls/ hr ONCE ONCE IV Last administered on 03/27/16 10:21; Start 03/27/16 at 09:00; Stop 03/27/16 at 10:59; Status DC Pharmacy Profile Note 0 ml @ 0 mls/hr UNSCH OTHER ; Start 03/27/16 at 08:00; Stop 03/31/16 at 13:55; Status DC Vancomycin HCl/ Sodium Chloride (Vancomycin Inj/ NS 500 ml Inj) 520 ml @ 260 mls/hr Q24H IV Last administered on 03/30/16 04:04; Start 03/28/16 at 04:00; Stop 03/30/16 at 11:11; Status DC Miscellaneous Information SPECIFIC LAB TO BE ISHAAN... ONCE ONCE XX Last administered on 03/30/16 03:45; Start 03/30/16 at 03:45; Stop 03/30/16 at 03:46 ; Status DC Insulin Detemir 5 units 5 units Q12HR SQ Last administered on 03/31/16 21:17; Start 03/28/16 at 11:00; Stop 04/01/16 at 08:57; Status DC Pharmacy Profile Note (Vancomycin Consult Pharmacy) 0 ml @ 0 mls/hr UNSCH OTHER ; Start 03/28/16 at 10:15; Status UNV Methylprednisolone Sodium Succinate (SoluMEDROL INJ) 40 mg Q12HR IV PUSH Last administered on 04/17/16 07:26; Start 03/28/16 at 21:00; Stop 04/17/16 at 09:03 ; Status DC Docusate Sodium (Colace Liq) 100 mg Q12HR PO Last administered on 05/25/16 21: 07; Start 03/29/16 at 09:00 Sennosides (Senna Liq) 8.8 mg DAILY PO Last administered on 03/31/16 08:40; Start 03/29/16 at 09:00; Stop 04/01/16 at 08:57; Status DC Furosemide (Lasix Inj) 40 mg BID@,18 IV PUSH ; Start 03/29/16 at 18:00; Stop 03/29/16 at 18:00; Status DC Furosemide 40 mg 40 mg BID@,18 IV PUSH Last administered on 04/01/16 17:37; Start 03/29/16 at 09:00; Stop 04/02/16 at 07:14; Status DC Vancomycin HCl/ Sodium Chloride (Vancomycin Inj/ NS 500 ml Inj) 517.5 ml @ 250 mls/hr Q12H IV Last administered on 03/31/16 03:19; Start 03/30/16 at 16:00; Stop 03/31/16 at 13:55; Status DC Miscellaneous Information SPECIFIC LAB TO BE ISHAAN... ONCE ONCE XX Last administered on 03/31/16 15:41; Start 03/31/16 at 15:45; Stop 03/31/16 at 15:46 ; Status DC Acetaminophen (Tylenol 650 Mg/ 20 ml Liq) 650 mg Q6H PRN PO fever Last administered on 05/22/16 09:34; Start 03/30/16 at 15:45 Bumetanide (Bumex Inj) 1 mg ONCE ONCE IV PUSH ; Start 03/31/16 at 09:30; Stop 03/31/16 at 10:40; Status DC Dextrose (D50w (Vial) Inj) 25 ml UNSCH PRN IV PUSH HYPOGLYCEMIA-SEE COMMENTS; Start 03/31/16 at 11:15; Stop 04/03/16 at 17:53; Status DC Glucagon (Glucagon Inj) 1 mg UNSCH PRN OTHER HYPOGLYCEMIA-SEE COMMENTS; Start 03/31/16 at 11:15; Stop 04/07/16 at 10:46; Status DC Insulin Human Regular 1 1 Q6H SQ Last administered on 04/03/16 17:48; Start at 12:00; Stop 04/03/16 at 17:54; Status DC Levofloxacin/ Dextrose 150 ml @ 100 mls/hr Q24H IV Last administered on 14:07; Start 03/31/16 at 14:00; Stop 04/16/16 at 09:51; Status DC Fluconazole/ Sodium Chloride 200 ml @ 100 mls/hr Q24H IV Last administered on 04/09/16 15:48; Start 03/31/16 at 16:00; Stop 04/10/16 at 13:31; Status DC Linezolid 300 ml @ 300 mls/hr Q12H IV Last administered on 04/04/16 02:45; Start 03/31/16 at 15:00; Stop 04/04/16 at 09:59; Status DC Cisatracurium Besylate 100 mg/ Sodium Chloride 250 ml @ 0 mls/hr TITRATE IV Last administered on 04/14/16 11:39; Start 04/01/16 at 09:00; Stop 04/15/16 at 09:02; Status DC Epoprostenol Sodium/Sodium Chloride (Flolan (30,000 Ng/ml) Neb/NS Inj) 100 ml @ 8 mls/hr Q8H NEB Last administered on 04/15/16 02:32; Start 04/01/16 at 10:00 ; Stop 04/15/16 at 09:02; Status DC Insulin Detemir (Levemir Inj) 15 units Q12HR SQ Last administered on 04/01/16 20:13; Start 04/01/16 at 09:00; Stop 04/02/16 at 07:14; Status DC Sennosides (Senna Liq) 8.8 mg BID PO/TUBE Last administered on 05/25/16 21:07 ; Start 04/01/16 at 09:00 Polyethylene Glycol (Miralax) 17 gm BID PO Last administered on 04/03/16 21:14 ; Start 04/01/16 at 09:00; Stop 04/23/16 at 13:31; Status DC Lactulose (Lactulose Liq) 30 ml QID PO Last administered on 04/01/16 20:13; Start 04/01/16 at 09:00; Stop 04/02/16 at 07:14; Status DC Methylnaltrexone [place] (Relistor Inj) 12 mg ONCE ONCE SQ Last administered on 04/01/16 11:44; Start 04/01/16 at 10:30; Stop 04/01/16 at 10:31; Status DC Metoclopramide HCl (Reglan Inj) 5 mg Q8HR IV PUSH Last administered on 05:42; Start 04/01/16 at 14:00; Stop 04/11/16 at 09:15; Status DC Glycerin (Glycerin Adult Supp) 2 gm BID PRN RECTAL CONSTIPATION Last administered on 04/25/16 10:22; Start 04/01/16 at 09:00 Glycerin (Glycerin Adult Supp) 2 gm ONCE ONCE RECTAL Last administered on 04/01 10:52; Start 04/01/16 at 09:30; Stop 04/01/16 at 09:31; Status DC Mineral Oil (Mineral Oil Liq) 15 ml ONCE ONCE PO Last administered on 10:00; Start 04/01/16 at 10:00; Stop 04/01/16 at 10:01; Status DC Chlorhexidine Gluconate 15 ml 15 ml BID@08,20 MT Last administered on 08:00; Start 04/01/16 at 20:00 Midazolam HCl 100 ml @ 0 mls/hr TITRATE IV Last administered on 05/01/16 14:25 ; Start 04/01/16 at 11:45; Stop 05/02/16 at 08:35; Status DC Norepinephrine Bitartrate (Levophed-Dextrose Drip) 250 ml @ 0 mls/hr TITRATE IV Last administered on 04/01/16 21:15; Start 04/01/16 at 20:30; Stop 04/07/16 at 10:10; Status DC Furosemide (Lasix Inj) 20 mg BID@09,18 IV PUSH Last administered on 04/03/16 08:17; Start 04/02/16 at 09:00; Stop 04/03/16 at 12:58; Status DC Insulin Detemir (Levemir Inj) 25 units Q12HR SQ Last administered on 04/03/16 08:17; Start 04/02/16 at 09:00; Stop 04/03/16 at 12:48; Status DC IV Flush (NS Flush) DAILY IVF Last administered on 05/25/16 09:24; Start at 09:00 IV Flush (NS Flush) UNSCH PRN IVF SEE PROTOCOL Last administered on 04/22/16 07:42; Start 04/02/16 at 09:30 Artificial Tears (Lacrilube Opht Oint) 1 applic Q12HR EACH EYE Last administered on 05/25/16 21:09; Start 04/02/16 at 12:00 Lactobacillus Acidophilus (Lactinex) 1 tab TID PO Last administered on 09:13; Start 04/03/16 at 13:00 Insulin Detemir (Levemir Inj) 40 units Q12HR SQ ; Start 04/03/16 at 21:00; Stop 04/03/16 at 21:00; Status DC Insulin Human NPH 15 units 15 units ONCE ONCE SQ Last administered on 13:08; Start 04/03/16 at 13:00; Stop 04/03/16 at 13:01; Status DC Sodium Chloride (NS 1000 ml Inj) 1,000 ml @ 999 mls/hr BOLUS ONCE IV Last administered on 04/03/16 13:10; Start 04/03/16 at 13:00; Stop 04/03/16 at 14:00 ; Status DC Sodium Polystyrene Sulfonate 15 gm 15 gm ONCE ONCE PO Last administered on 13:22; Start 04/03/16 at 13:00; Stop 04/03/16 at 13:08; Status DC Insulin Human Regular/Sodium Chloride (NovoLIN R (IV INFUSION)/NS Inj) 100 ml @ 0 mls/hr TITRATE IV Last administered on 04/03/16 22:44; Start 04/03/16 at 18: 00; Stop 04/04/16 at 09:12; Status DC Dextrose (D50w (Vial) Inj) 25 ml UNSCH PRN IV PUSH SEE LABEL COMMENTS; Start at 17:45; Stop 04/04/16 at 09:14; Status DC Miscellaneous Information 1 ONCE ONCE XX Last administered on 04/03/16 20:27 ; Start 04/03/16 at 17:45; Stop 04/03/16 at 17:52; Status DC Albuterol/ Ipratropium (Duoneb Neb) 1 ampule Q4HR NEB NEB Last administered on 04/08/16 03:48; Start 04/04/16 at 08:00; Stop 04/08/16 at 08:00; Status DC Furosemide 20 mg 20 mg BID@09,18 IV PUSH Last administered on 04/15/16 08:12; Start 04/04/16 at 09:00; Stop 04/15/16 at 09:53; Status DC Insulin Human Regular/Sodium Chloride (NovoLIN R (IV INFUSION)/NS Inj) 100 ml @ 0 mls/hr TITRATE IV Last administered on 04/07/16 04:33; Start 04/04/16 at 09:00 ; Stop 04/07/16 at 10:11; Status DC Dextrose (D50w (Vial) Inj) 25 ml UNSCH PRN IV PUSH SEE LABEL COMMENTS; Start at 09:00; Stop 04/07/16 at 10:46; Status DC Miscellaneous Information 1 ONCE ONCE XX Last administered on 04/04/16 10:00; Start 04/04/16 at 10:00; Stop 04/04/16 at 10:01; Status DC Insulin Detemir (Levemir Inj) 60 units Q12HR SQ Last administered on 04/07/16 07:41; Start 04/05/16 at 11:00; Stop 04/08/16 at 08:14; Status DC Dextrose (D50w (Vial) Inj) 25 ml UNSCH PRN IV PUSH HYPOGLYCEMIA-SEE COMMENTS; Start 04/07/16 at 10:15; Stop 04/07/16 at 17:03; Status DC Glucagon (Glucagon Inj) 1 mg UNSCH PRN OTHER HYPOGLYCEMIA-SEE COMMENTS; Start 04/07/16 at 10:15; Stop 04/07/16 at 17:03; Status DC Insulin Human Regular (NovoLIN R SUPPLEMENTAL SCALE) 1 Q6H SQ Last administered on 04/07/16 10:56; Start 04/07/16 at 11:00; Stop 04/07/16 at 17:01; Status DC Insulin Detemir (Levemir Inj) 20 units Q12HR SQ Last administered on 04/08/16 07:26; Start 04/07/16 at 21:00; Stop 04/08/16 at 08:14; Status DC Dextrose (D50w (Vial) Inj) 25 ml UNSCH PRN IV PUSH HYPOGLYCEMIA-SEE COMMENTS; Start 04/07/16 at 17:00; Stop 05/13/16 at 13:50; Status DC Glucagon (Glucagon Inj) 1 mg UNSCH PRN OTHER HYPOGLYCEMIA-SEE COMMENTS; Start 04/07/16 at 17:00; Stop 05/13/16 at 13:50; Status DC Insulin Human Regular (NovoLIN R SUPPLEMENTAL SCALE) 1 Q6H SQ Last administered on 05/11/16 17:08; Start 04/07/16 at 18:00; Stop 05/13/16 at 13:50 ; Status DC Insulin Detemir 24 units 24 units Q12HR SQ Last administered on 04/09/16 07:37 ; Start 04/08/16 at 21:00; Stop 04/09/16 at 10:01; Status DC Vancomycin HCl 1750 mg/Sodium Chloride 517.5 ml @ 258.75 mls/ hr ONCE ONCE IV Last administered on 04/08/16 14:42; Start 04/08/16 at 13:00; Stop 04/08/16 at 14:59; Status DC Sodium Chloride (NS 500 ml Inj) 500 ml @ 500 mls/hr BOLUS ONCE IV Last administered on 04/08/16 17:20; Start 04/08/16 at 17:15; Stop 04/08/16 at 18:14; Status DC Insulin Detemir 30 units 30 units Q12HR SQ Last administered on 04/10/16 08:29 ; Start 04/09/16 at 21:00; Stop 04/10/16 at 10:25; Status DC Pharmacy Profile Note 0 ml @ 0 mls/hr UNSCH OTHER ; Start 04/09/16 at 10:30; Stop 04/12/16 at 13:55; Status DC Vancomycin HCl/ Sodium Chloride (Vancomycin Inj/ NS 500 ml Inj) 515 ml @ 257.5 mls/ hr Q12H IV Last administered on 04/10/16 11:16; Start 04/09/16 at 12:00; Stop 04/10/16 at 13:51; Status DC Miscellaneous Information SPECIFIC LAB TO BE DRAWN:[facility]... ONCE ONCE XX ; Start 04/10/16 at 11:45; Stop 04/10/16 at 11:46; Status DC Insulin Detemir 35 units 35 units Q12HR SQ Last administered on 04/11/16 08:07 ; Start 04/10/16 at 21:00; Stop 04/11/16 at 09:15; Status DC Vancomycin HCl/ Sodium Chloride (Vancomycin Inj/ NS 500 ml Inj) 520 ml @ 260 mls/hr Q12H IV Last administered on 04/12/16 08:14; Start 04/10/16 at 20:00; Stop 04/12/16 at 13:55; Status DC Miscellaneous Information SPECIFIC LAB TO BE ISHAAN... ONCE ONCE XX Last administered on 04/12/16 07:45; Start 04/12/16 at 07:45; Stop 04/12/16 at 07:46; Status DC Insulin Detemir (Levemir Inj) 45 units Q12HR SQ Last administered on 04/23/16 08:29; Start 04/11/16 at 21:00; Stop 04/23/16 at 13:24; Status DC Metoclopramide HCl 10 mg 10 mg Q8HR IV PUSH Last administered on 05/25/16 06: 05; Start 04/11/16 at 14:00; Stop 05/25/16 at 12:09; Status DC Sodium Chloride (NS 1000 ml Inj) 2,000 ml @ 0 mls/hr NOW ONCE IV Last administered on 04/11/16 21:01; Start 04/11/16 at 21:00; Stop 04/11/16 at 21:01; Status DC Miscellaneous Information SPECIFIC LAB TO BE DRAWN:VANCOMYCIN TROUGH DATE TO... ONCE ONCE XX ; Start 04/13/16 at 19:45; Stop 04/13/16 at 19:46; Status Cancel Furosemide 20 mg 20 mg Q6H IV PUSH Last administered on 04/16/16 08:40; Start 04/12/16 at 15:00; Stop 04/16/16 at 09:25; Status DC Epoprostenol Sodium 30 ml/ Sodium Chloride 67.5 ml @ 8 mls/hr Q8H NEB ; Start 04/15/16 at 10:00; Stop 04/15/16 at 10:00; Status DC Epoprostenol Sodium/Sodium Chloride (Flolan (30,000 Ng/ml) Neb/NS Inj) 100 ml @ 8 mls/hr Q8H NEB Last administered on 04/18/16 02:09; Start 04/15/16 at 10:00 ; Stop 04/18/16 at 10:15; Status DC Furosemide (Lasix Inj) 20 mg Q8H IV PUSH Last administered on 04/23/16 08:31; Start 04/16/16 at 17:00; Stop 04/23/16 at 13:44; Status DC Methylprednisolone Sodium Succinate 40 mg 40 mg DAILY IV PUSH Last administered on 05/02/16 08:11; Start 04/18/16 at 09:00; Stop 05/02/16 at 08:39; Status DC Epoprostenol Sodium 25 ml/ Sodium Chloride 100 ml @ 8 mls/hr Q8H NEB Last administered on 04/19/16 13:12; Start 04/18/16 at 15:00; Stop 04/19/16 at 15:59 ; Status DC Vancomycin HCl 1500 mg/Sodium Chloride 515 ml @ 257.5 mls/ hr ONCE ONCE IV Last administered on 04/19/16 13:45; Start 04/19/16 at 13:00; Stop 04/19/16 at 14:59; Status DC Epoprostenol Sodium 12.5 ml/ Sodium Chloride 100 ml @ 8 mls/hr Q8H NEB Last administered on 04/20/16 00:29; Start 04/19/16 at 16:00; Stop 04/20/16 at 15:11 ; Status DC Pharmacy Profile Note 0 ml @ 0 mls/hr UNSCH OTHER ; Start 04/20/16 at 14:15; Stop 04/29/16 at 10:33; Status DC Vancomycin HCl/ Sodium Chloride (Vancomycin Inj/ NS 500 ml Inj) 520 ml @ 250 mls/hr Q12H IV Last administered on 04/24/16 05:53; Start 04/20/16 at 18:00; Stop 04/24/16 at 09:15; Status DC Miscellaneous Information SPECIFIC LAB TO BE DRAWN:VANCO TROUGH DATE TO... ONCE ONCE XX Last administered on 04/22/16 05:45; Start 04/22/16 at 05:45; Stop 04/22/16 at 05:46; Status DC Potassium Bicarb/ Potassium Chloride (K-Lyte Cl Eff) 25 meq Q12HR PO Last administered on 04/28/16 07:49; Start 04/21/16 at 21:00; Status Hold Artificial Tears (Tears Naturale Opth Soln) 1 drop Q4H EACH EYE Last administered on 05/26/16 05:47; Start 04/21/16 at 18:00 Water (Free Water) 200 ml Q6HR G-TUBE Last administered on 04/30/16 12:00; Start 04/22/16 at 18:00; Stop 05/01/16 at 17:19; Status DC Albuterol/ Ipratropium (Duoneb Neb) 1 ampule Q6HR NEB NEB Last administered on 04/27/16 08:03; Start 04/23/16 at 16:00; Stop 04/27/16 at 16:00; Status DC Albuterol/ Ipratropium (Duoneb Neb) 1 ampule Q2HR NEB PRN NEB [id number] Last administered on 05/11/16 15:54; Start 04/23/16 at 13:15; Stop 05/17/16 at 20:14 ; Status DC Insulin Detemir (Levemir Inj) 55 units Q12HR SQ Last administered on 04/24/16 08:34; Start 04/23/16 at 21:00; Stop 04/24/16 at 12:17; Status DC Polyethylene Glycol (Miralax) 17 gm BID PO Last administered on 05/25/16 21:08 ; Start 04/24/16 at 09:00 Furosemide 20 mg 20 mg BID IV PUSH Last administered on 04/28/16 07:50; Start 04/23/16 at 21:00; Stop 04/28/16 at 11:08; Status DC Vancomycin HCl/ Sodium Chloride (Vancomycin Inj/ NS 500 ml Inj) 515 ml @ 257.5 mls/ hr Q12H IV Last administered on 04/28/16 11:59; Start 04/24/16 at 23:00; Stop 04/28/16 at 14:04; Status DC Miscellaneous Information SPECIFIC LAB TO BE ISHAAN... ONCE ONCE XX Last administered on 04/25/16 22:45; Start 04/25/16 at 22:45; Stop 04/25/16 at 22:46 ; Status DC Insulin Detemir (Levemir Inj) 65 units Q12HR SQ Last administered on 04/25/16 09:00; Start 04/24/16 at 21:00; Stop 04/25/16 at 15:10; Status DC Polyethylene Glycol (Miralax) 17 gm ONCE ONCE PO Last administered on 16:21; Start 04/25/16 at 15:15; Stop 04/25/16 at 15:16; Status DC Polyethylene Glycol (Miralax) 17 gm DAILY PO ; Start 04/26/16 at 09:00; Stop at 11:33; Status DC Mineral Oil (Mineral Oil Liq) 15 ml ONCE ONCE PO Last administered on 16:21; Start 04/25/16 at 16:00; Stop 04/25/16 at 16:01; Status DC Potassium Chloride (KCl 40 Meq/30 ml Liq) 40 meq ONCE ONCE PO Last administered on 04/25/16 16:21; Start 04/25/16 at 15:15; Stop 04/25/16 at 15:16 ; Status DC Insulin Detemir (Levemir Inj) 75 units Q12HR SQ Last administered on 04/26/16 09:13; Start 04/25/16 at 21:00; Stop 04/26/16 at 14:43; Status DC Methylnaltrexone [place] (Relistor Inj) 12 mg ONCE ONCE SQ Last administered on 04/25/16 16:22; Start 04/25/16 at 16:00; Stop 04/25/16 at 16:01; Status DC Miscellaneous Information SPECIFIC LAB TO BE DRAWN:[facility]AN[facility] TROUGH DATE TO BE DR... ONCE ONCE XX Last administered on 04/28/16 10:45; Start 04/28/16 at 10: 45; Stop 04/28/16 at 10:46; Status DC Methylnaltrexone [place] (Relistor Inj) 12 mg ONCE ONCE SQ Last administered on 04/26/16 15:18; Start 04/26/16 at 14:30; Stop 04/26/16 at 14:56; Status DC Lactulose (Lactulose Liq) 30 ml QID PO Last administered on 04/28/16 07:47; Start 04/26/16 at 18:00; Status Hold Mineral Oil (Mineral Oil Liq) 15 ml ONCE ONCE PO Last administered on 15:19; Start 04/26/16 at 14:30; Stop 04/26/16 at 14:56; Status DC Sennosides (Senna Liq) 8.8 mg ONCE ONCE PO Last administered on 04/26/16 15: 25; Start 04/26/16 at 14:30; Stop 04/26/16 at 14:56; Status DC Magnesium Citrate (Citroma Liq) 300 ml ONCE ONCE PO Last administered on 15:25; Start 04/26/16 at 14:45; Stop 04/26/16 at 14:56; Status DC Potassium Chloride (KCl 40 Meq/30 ml Liq) 40 meq ONCE ONCE PO Last administered on 04/26/16 15:25; Start 04/26/16 at 14:45; Stop 04/26/16 at 14:56 ; Status DC Insulin Detemir (Levemir Inj) 80 units Q12HR SQ Last administered on 04/28/16 07:49; Start 04/26/16 at 21:00; Stop 04/28/16 at 11:19; Status DC Nystatin 1 applic 1 applic Q12HR TOPICAL Last administered on 05/25/16 21:10; Start 04/27/16 at 11:00 Aztreonam/Sodium Chloride (Azactam Inj/NS Inj) 100 ml @ 200 mls/hr Q8H IV Last administered on 04/29/16 02:39; Start 04/27/16 at 10:00; Stop 04/29/16 at 10:34; Status DC Potassium Chloride (KCl 40 Meq/30 ml Liq) 40 meq ONCE ONCE PO Last administered on 04/27/16 13:00; Start 04/27/16 at 13:00; Stop 04/27/16 at 13:02 ; Status DC Albuterol/ Ipratropium (Duoneb Neb) 1 ampule Q4HR NEB NEB Last administered on 05/02/16 07:53; Start 04/28/16 at 12:00; Stop 05/02/16 at 12:00; Status DC Sodium Chloride 2 ml 2 ml Q8HR NEB NEB Last administered on 05/01/16 07:21; Start 04/28/16 at 16:00; Stop 05/01/16 at 15:59; Status DC Sodium Chloride/ Sterile Water (Sodium Chloride 23.4% Inj/Sterile Water For Inj ) 1,009.625 ml @ 84 mls/hr Q12H2M IV Last administered on 04/28/16 13:23; Start 04/28/16 at 13:00; Stop 04/29/16 at 01:01; Status DC Insulin Detemir 70 units 70 units Q12HR SQ Last administered on 05/03/16 08:08 ; Start 04/28/16 at 21:00; Stop 05/05/16 at 17:18; Status DC Vancomycin HCl/ Sodium Chloride (Vancomycin Inj/ NS 250 ml Inj) 262.5 ml @ 250 mls/hr Q12H IV Last administered on 04/29/16 00:18; Start 04/28/16 at 23:00; Stop 04/29/16 at 10:34; Status DC Miscellaneous Information SPECIFIC LAB TO BE ISHAAN... ONCE ONCE XX ; Start at 10:45; Stop 04/30/16 at 10:45; Status DC Clindamycin Phosphate/Sodium Chloride (Cleocin Inj/NS Inj) 104 ml @ 208 mls/hr Q8H IV Last administered on 05/06/16 15:52; Start 04/29/16 at 12:00; Stop at 12:00; Status DC Lidocaine/ Epinephrine (Xylocaine-Epi 1%-1:100,000 Inj) 30 ml STK-MED ONCE .ROUTE ; Start 04/30/16 at 13:00; Stop 04/30/16 at 13:01; Status DC Fentanyl Citrate 250 mcg 250 mcg STK-MED ONCE .ROUTE ; Start 04/30/16 at 15:28; Stop 04/30/16 at 15:29; Status DC Dexmedetomidine HCl (Precedex Inj) 50 ml @ 0 mls/hr TITRATE IV Last administered on 05/02/16 18:32; Start 05/01/16 at 17:00; Stop 05/02/16 at 19:00; Status DC Water (Free Water) 100 ml Q6HR G-TUBE Last administered on 05/26/16 05:47; Start 05/01/16 at 18:00 Fentanyl (Duragesic 25 Mcg Patch.72 Hr) 1 patch Q3D TD Last administered on 09:16; Start 05/02/16 at 09:00 Miscellaneous Information 1 Q3D T-DERMAL Last administered on 05/26/16 09:00; Start 05/05/16 at 09:00 Oxycodone HCl (Roxicodone Intensol Liq) 5 mg Q6H PRN PO PAIN SCALE 7 TO 10 Last administered on 05/23/16 05:54; Start 05/02/16 at 08:45 Acetaminophen/ Hydrocodone Bitart ([place] 5-325 Mg) 1 tab Q6H PO Last administered on 05/06/16 15:52; Start 05/02/16 at 09:00; Stop 05/06/16 at 18:52; Status DC Methylprednisolone Sodium Succinate (SoluMEDROL INJ) 30 mg DAILY IV PUSH Last administered on 05/04/16 07:55; Start 05/03/16 at 09:00; Stop 05/04/16 at 10:09; Status DC Midazolam HCl (Versed Inj) 5 mg STK-MED ONCE .ROUTE Last administered on 16:18; Start 05/02/16 at 16:14; Stop 05/02/16 at 16:15; Status DC Lorazepam (Ativan Inj) 2 mg STK-MED ONCE .ROUTE Last administered on 05/02/16 16:19; Start 05/02/16 at 16:15; Stop 05/02/16 at 16:16; Status DC Midazolam HCl (Versed Inj) 5 mg NOW ONCE IV Last administered on 05/02/16 16: 30; Start 05/02/16 at 16:30; Stop 05/02/16 at 16:31; Status DC Lorazepam 2 mg 2 mg Q4H PRN IVP AGITATION Last administered on 05/07/16 04:42; Start 05/02/16 at 16:30 Dexmedetomidine HCl/Sodium Chloride (Precedex Inj/NS 250 ml Inj) 260 ml @ 0 mls/ hr TITRATE IV Last administered on 05/04/16 09:53; Start 05/02/16 at 19:01; Stop 05/04/16 at 16:31; Status DC Hydralazine HCl (Apresoline Inj) 10 mg Q4H PRN IV PUSH SBP >165 Last administered on 05/03/16 06:20; Start 05/02/16 at 22:00 Propofol (Diprivan 200 Mg/20 ml Inj) 170 mg STK-MED ONCE IV ; Start 05/03/16 at 15:06; Stop 05/03/16 at 15:07; Status DC Quetiapine Fumarate (SEROquel) 25 mg BID PO Last administered on 05/26/16 09: 00; Start 05/04/16 at 09:00 Methylprednisolone Sodium Succinate (SoluMEDROL INJ) 20 mg DAILY IV PUSH Last administered on 05/11/16 08:02; Start 05/05/16 at 09:00; Stop 05/12/16 at 09:13 ; Status DC Fentanyl Citrate (fentaNYL INJ) 50 mcg NOW ONCE IV Last administered on 01:03; Start 05/05/16 at 01:00; Stop 05/05/16 at 01:02; Status DC Metoprolol Tartrate (Lopressor Inj) 2.5 mg NOW ONCE IV PUSH Last administered on 05/05/16 04:17; Start 05/05/16 at 04:00; Stop 05/05/16 at 04:01; Status DC Ondansetron HCl (Zofran Inj) 4 mg Q6H PRN IV NAUSEA OR VOMITING; Start 05/05/16 at 06:45 Bumetanide (Bumex Inj) 0.5 mg DAILY IV PUSH Last administered on 05/24/16 09: 25; Start 05/05/16 at 09:00; Stop 05/24/16 at 10:39; Status DC Albuterol/ Ipratropium (Duoneb Neb) 1 ampule TID NEB INH Last administered on 05/09/16 13:05; Start 05/05/16 at 14:00; Stop 05/09/16 at 14:00; Status DC Insulin Detemir (Levemir Inj) 50 units Q12HR SQ Last administered on 05/11/16 20:54; Start 05/05/16 at 21:00; Stop 05/13/16 at 13:50; Status DC Acetaminophen/ Hydrocodone Bitart ([place] 5-325 Mg) 1 tab Q12HR PO Last administered on 05/25/16 21:08; Start 05/06/16 at 21:00 Propofol 200 mg 200 mg STK-MED ONCE IV ; Start 04/30/16 at 15:12; Stop 05/07/16 at 15:12; Status DC Parenteral Electrolytes (Normosol R Inj) 2,000 ml @ As Directed STK-MED ONCE IV ; Start 04/30/16 at 15:12; Stop 05/07/16 at 15:12; Status DC Potassium Chloride (KCl) 10 meq DAILY PO Last administered on 05/26/16 09:13; Start 05/10/16 at 09:30 Simethicone (Phazyme Chew) 125 mg DAILY PRN PO gas Last administered on 15:00; Start 05/11/16 at 15:00 Insulin Detemir (Levemir Inj) 35 units Q12HR SQ Last administered on 05/26/16 09:12; Start 05/13/16 at 21:00 Dextrose (D50w (Vial) Inj) 25 ml UNSCH PRN IV PUSH HYPOGLYCEMIA-SEE COMMENTS; Start 05/13/16 at 14:00 Glucagon (Glucagon Inj) 1 mg UNSCH PRN OTHER HYPOGLYCEMIA-SEE COMMENTS; Start 05/13/16 at 14:00 Insulin Human Regular (NovoLIN R SUPPLEMENTAL SCALE) 1 ACHS SLIDING SCALE SQ Last administered on 05/25/16 06:19; Start 05/13/16 at 16:00; Stop 05/25/16 at 12:14; Status DC Silver Sulfadiazine (Silvadene 1% Cream (400 Gm)) 1 applic DAILY TOPICAL Last administered on 05/25/16 09:00; Start 05/16/16 at 11:00 Pregabalin (Lyrica) 25 mg DAILY PO Last administered on 05/19/16 08:22; Start 05/17/16 at 11:45; Stop 05/20/16 at 10:29; Status DC Ipratropium [place] (Atrovent Neb) 0.5 mg Q2HR NEB PRN NEB wheezing Last administered on 05/23/16 18:18; Start 05/17/16 at 21:00 Diltiazem HCl (Cardizem) 30 mg ONCE ONCE PO Last administered on 05/17/16 22: 44; Start 05/17/16 at 22:45; Stop 05/17/16 at 22:46; Status DC Potassium Chloride (KCl) 40 meq ONCE ONCE PO Last administered on 05/17/16 22 :44; Start 05/17/16 at 22:45; Stop 05/17/16 at 22:46; Status DC Pregabalin (Lyrica) 50 mg DAILY PO Last administered on 05/26/16 09:13; Start 05/21/16 at 09:00 Baclofen (Lioresal) 10 mg Q12HR PO Last administered on 05/26/16 09:14; Start 05/24/16 at 10:45 Bumetanide (Bumetanide) 0.5 mg ONCE ONCE PO Last administered on 05/25/16 09: 21; Start 05/25/16 at 09:00; Stop 05/25/16 at 09:01; Status DC Miscellaneous (Pill Splitter) 1 ea UNSCH PRN OTHER SEE LABEL COMMENTS; Start at 10:45 Pantoprazole Sodium (Protonix) 40 mg DAILY PO Last administered on 05/26/16 09 :13; Start 05/26/16 at 09:00 Insulin Human Regular (NovoLIN R SUPPLEMENTAL SCALE) 1 Q12HR SQ ; Start at 19:00 Metoclopramide HCl (Reglan) 10 mg Q8HR G-TUBE Last administered on 05/26/16 05 :51; Start 05/25/16 at 14:00 Date of Insertion: May 03, 2016 Date of Insertion: Apr 02, 2016 Date of Removal: May 03, 2016 Line: PICC Side: Left Location: Antecubital A/P Assessment and Plan A/P Acute hypoxemic respiratory failure on T piece tolerates well J[facility] History of staph aureus pneumonia/HCAP ARDS Dr. Perry ff- on tracheostomy- Trach collar with oxygen support to keep sat >92%. Bronchodilators every 6 hours and every 2 hours as needed Transaminitis. LFT improving. Abd pain, improved Follow trend of LFT. Liver US shows fatty liver. Small stones or tumefactive sludge adherent to one of the gallbladder arcos. Splenomegaly. Avoid liver toxicity drugs. Hep panel negative Diabetes mellitus SSI for glycemic control (high scale) 30 units sliding scale insulin scale insulin in the past 24 hours, cont Levemir insulin continue to adjust as needed decrease sliding scale to q 12 Diabetic Neuropathy: patient c/o left leg tingling/pins and needle on the left leg and seem. On lyrica to 50 mg po daily, improving. 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 Optifoam in place. Apply bacitracin. Wound cultures with normal sherine. Consulted wound care, previously discussed with Nica from wound care, appreciate recommendations. Cleanse wound with NS and apply nonadhesive foam ag dressing over wound and change every other day and PRN for saturation or dislodgement. Added silvadene cream daily Mild MR/TR. Monitor HR and BP keep MAP>65mmHg 2-D echo 03/26 EF 60%. No regional wall motion abnormality. Mild MR/TR. Hypokalemia Hypernatremia-resolved Hypophosphatemia Monitor renal function periodically. Moderate protein calorie malnutrition On Glucerna 1.5@45ml/hr with 1 scoop whey protein 3 times a day, no residual Protonix 40mg daily On Reglan 10mg Q8, Senna and Colace twice a day.Discontinue MiraLAX twice a day and lactulose 4 times a day. PEG tube placement- /- tolerating TF Zofran 4 mg every 6 hours when necessary Toxic metabolic encephalopathy-resolved Continue [place], fentanyl patch wean narcotics slowly Seroquel 25mg BID initiated /3 Acetaminophen for fever Staph aureus pneumonia Possible staph bacteremia Pertinent culture 04/27 - pansensitive staph aureus 04/27 blood cultures 2 negative 04/25 - urine -no growth 04/19 - blood cultures 2 out of 4 - staph aureus 04/19 - sputum - staph aureus 04/08 - sputum - staph aureus 04/03 - sputum - staph aureus 03/30 - sputum- -staph aureus 03/27 - sputum - staph aureus 03/26 - blood - staph hominis ID specialist consulted, Dr. Painter, appreciate recommendations. Finished course of abx, ID specialist signed off. Morbid obesity BMI of 51.8 Weight loss encouraged. DVT, GI prophylaxis -Bilateral lower extremity SCDs. PEG Protonix 40 mg daily. REglan 10 mg /PEG q 8 Lovenox 40 mg sq BID Discharge Planning needs SNF placement. dc planning in progress. Mg Stearns MD May 26, 2016 10:09
[2016-05-27] VITALS (24 sets, daily range): BP systolic 113–126; BP diastolic 63–74; PULSE 92–200; RESP 16–22; TEMP 98.5–100.6; O2SAT 94–100
[2016-05-27] MEDS: RESP: IPRATROPIUM 0.5 MG/2.5 ML NEB NEB PRN (00:28)
[2016-05-27] MEDS ORDERED: RESP: ALBUTEROL 2.5 MG/3 ML NEB (SCH) NEB ONE (00:45)
[2016-05-27] MEDS ORDERED: SODIUM CHLOR 0.9% 1000 ML INJ 999 ML IV ONE (02:00)
[2016-05-27] MEDS: ARTIFICIAL TEARS OPTH SOLN 15 ML BTL EACH EYE SCH ×6 (02:00→21:48)
[2016-05-27] MEDS ORDERED: ADENOSINE IV SOLN 3 MG/ML 2 ML VIAL IV PUSH ONE ×3 (02:01→05:00)
--- NOTE | 2016-05-27 02:15 | RADRPT ---
EXAM DATE/TIME: 05/27/2016 00:39 [facility] COMPARISON: CHEST SINGLE AP, May 10, 2016, 2:31. INDICATIONS : Respiratory distress. MEDICAL HISTORY : None. SURGICAL HISTORY : None. ENCOUNTER: Subsequent ACUITY: 4 - 6 days PAIN SCORE: Non-responsive. LOCATION: Bilateral chest FINDINGS: A single portable frontal view the chest shows low lung volumes. Bibasilar consolidation. Heart is mi ldly enlarged. Tracheostomy tube noted. No effusion seen. CONCLUSION: 1. Low lung volumes. 2. Bibasilar consolidations. I am unable to differentiate whether this represents atelectasis or infi ltrates. 3. Cardiomegaly. Chano Dutta Jr., MD on May 27, 2016 at 1:18 Board Certified Radiologist. This report was verified electronically.
--- NOTE | 2016-05-27 03:05 | HHI.PR ---
Addendum to Inpatient Note Addendum Reason: Additional Documentation Additional Information S: Resident team received a call from [facility] at 12:33 AM regarding a [facility] in [id number]. Resident team arrived to [facility] to find respiratory therapists (RTs) aggressively flushing and suctioning patients trach and administering humidified blow-by oxygen. Informed by nurse that [facility] was called for patients subjective dyspnea and objectively low pulse ox. Patient is nonverbal with trach but responds with gestures that he felt that the trach was obstructed and that he was having a hard time getting air in. He endorsed improvement with RT interventions. O: Vitals at 12:38 AM: Pulse ox of 74-76% on 12 L/m humidified oxygen via blow-by and positive pressure ventilation with BVM, pulse 124, blood pressure 159/96 Vitals intact 12:40 AM, pulse ox of 84% on humidified oxygen and BVM as above, pulse 128 Vitals at 12:42 AM: pulse ox of 95% on humidified oxygen and BVM as above, pulse 127 A few minutes later, pulse ox of 90% on humidified oxygen and BVM as above General: Patient with red, diaphoretic face in acute respiratory distress HEENT: Moist mucous membranes red, sweaty face as above Neck: Uncuffed trach with overlying dressings that are clean and dry and intact. Red tissue surrounding and adhering to trach Cardiovascular: Tachycardic rate. Warm extremities with 2+ distal pulses Respiratory: Diffuse wheezes and coarse breath sounds bilaterally Extremities: Warm and well perfused, no calf tenderness, no lower extremity pitting edema Neuro: Awake and alert, Patient responding to questions appropriately Psych: appears anxious A/P: Patient status post trach with likely obstructed trach, improved with RT interventions, but still in respiratory distress. Flush trach with NS Suction trach Blow-by humidified oxygen at 12 L/m Chest x-ray, ABG Transfer to [facility] Dr. Andino called [facility] and spoke with Saniya Worley BiPAP/vent when able to switch patient to cuffed trach Patient seen and discussed with Dr. Andino and nurse and RT. Genaro Restrepo MD R1 May 27, 2016 03:05
--- NOTE | 2016-05-27 03:48 | RADRPT ---
EXAM DATE/TIME: 05/27/2016 02:39 [facility] COMPARISON: CHEST SINGLE AP, May 27, 2016, 0:39. INDICATIONS : Exchange of tracheostomy tube. MEDICAL HISTORY : Diabetes mellitus type II. SURGICAL HISTORY : Tracheostomy ENCOUNTER: Subsequent ACUITY: 2 months PAIN SCORE: 0/10 LOCATION: Bilateral chest FINDINGS: Single portable frontal view of the chest is blurred by breathing motion artifact. The portable natur e of the exam in conjunction with the patient's body habitus and low lung volumes limits the study. T he tracheostomy tube is observed in good position. Basilar consolidation is grossly unchanged. Heart is normal in size. No effusions. CONCLUSION: 1. Limited study. 2. Grossly unchanged basilar consolidations. 3. Tracheostomy tube. Chano Dutta Jr., MD on May 27, 2016 at 3:45 Board Certified Radiologist. This report was verified electronically.
--- NOTE | 2016-05-27 03:55 | HHI.CCPN ---
Subjective Remarks/Hospital Course Patient is a 50 years old obese male with past medical history significant for undiagnosed sleep apnea, super morbid obesity, type 2 diabetes was brought to the emergency department on 03/24/16 after feeling light headed and dizzy. On presentation here was found to be hypoxemic and ABG showed severe hypoxemia and hypercarbia. For a recent driving physical he was diagnosed with low oxygen saturations. Patient's oxygen saturation the ED was in the low 80s, which was confirmed on ABG with a oxygen saturation of 78% and PO2 of 46. CTA negative for PE. Patient was initiated on BiPAP therapy with consult to pulmonary Dr. Crane. His oxygenation improved but he continued to be hypercapnic. Today a.m. on nasal cannula his pH was 7.26 and PCO2 was increased at 99, patient was somnolent was placed back on BiPAP and repeat ABG at noon showed pH 7.26 PCO2 98 and pO2 70. This was on 16 BiPAP with FiO2 50%. Critical care was consulted. On my evaluation patient is somnolent but wakes up easily. I reduced the PEEP on BiPAP from 12-7 to facilitate better ventilation. A repeat ANG showed only minimal improvement, so decision made to intubate patient. Glidescope with #4 blade was used. Only propofol was used for induction. Initially I had a Grade 1-2 view, but I was unable to pass tube through the vocal cord to trachea in two attempts. Tube slipped out of Laryngeal opening both times. Dr Garrett intubated patient after NM paralysis with succinylcholine. Post intubation ABG showed improvement in hypercapnia and oxygenation. 03/27/16: Patient remains intubated heavily sedated with propofol and fentanyl. Remained severely hypoxemic on 100% FiO2, PEEP12, chest x-ray shows bibasilar infiltrates. Flagyl added. We'll give 1 dose of vancomycin-Adjust antibiotics according to cultures. Patient super morbid obesity may prevent Prone therapy 03/28: Remains hypoxic but ABG shows marginal improvement in oxygenation. WBC increasing 20.1 today. Start vancomycin scheduled. 03/29: Oxygenation is slightly improved. FiO2 reduced to 50% today. Chest x- ray remains unchanged. On sedation hold patient does wake up and follow commands. WBC count remains at 20 03/30 No acute events overnight. Sedated with Diprivan and Fentanyl. Had T: 100.1 at 4 am. WBC trending down 15.9 today from 20. 03/31 Patient remains sedated with Diprivan, Fentanyl and intubated. Tmax 100.1. Patient required increase O2 overnight now on ACV with PEEP: 12 and FIO2 70%. 04/01: Tmax 99.7. No bowel movement since admission. Patient has bowel sounds. Arousable on the ventilator. We'll attempt prone the patient paralyzed to increase oxygenation status. 04/02: MAXIMUM TEMPERATURE 100.9. Currently 97.7. 5 10 cc stools overnight. Placed on Roto prone yesterday. Saturations currently 94% on Flolan. Diuresed overnight. Creatinine still within normal limits. 04/03: Tmax 101. Currently 99.1. Positive BM. Did not tolerate not being unprone this AM. Saturations much improved prone. Tolerating tube feeding. 04/04: Tmax 100.8. Currently 98.8. +2 L past 24 hours. Attempt to on prone today. Positive BM. C. difficile negative. Remains paralyzed. 04/05: Remains sedated, orally intubated on neuromuscular blockade on mechanical ventilation. Remains on Rota prone bed. On insulin drip. 04/06: Remains sedated, orally intubated on neuromuscular blockade, on mechanical ventilation. Remains on Rota prone bed. Insulin drip continues. 04/07 Patient remains on Rotoprone bed sedated with Diprivan, Versed, Fentanyl in addition patient is on Nimbex. Afebrile. On Insulin drip 5u/hr. 04/08 Patient remains sedated and intubated and on Nimbex. Off insulin drip. On PRVC/AC with RR 15, TV 550, IT: 1.65, PEEP: 15 and FIO2 100%. T: 100.2 at 4 am. 04/09 Patient is sedated, intubated and remains on neuromuscular blockade. Vent setting unchanged. afebrile. 04/10 Patient remains sedated and intubated and on Nimbex. On PRVC/AC, RR 15, TV 500, PEEP: 15, FIO2 90%, IT:1.65, on Flolan drip. Remains on Rotoprone bed. 04/11 minimal improvement in oxygenation, FiO2 now at 75 - continue to improve oxygenation, worsening CXR 04/13/10 continue to improve oxygenation DC'd prone position last night 04/14- improving oxygenation, Nimbex discontinued as well as prone position 04/16 Patient is sedated with Versed and Fentanyl and intubated. Off rotoprone bed. On PRVC/AC RR 15, TV 550, IT 1.65, PEEP:15, FIO2 50%. 04/17 Patient remains sedated with Versed and Fentanyl. Afebrile, tolerating tube feeds 04/18 No acute events overnight Sedated and intubated. Afebrile. On PRVC/AC RR 15 , TV 550, IT 1.65, PEEP:15, FIO2 60% 04/19: Spiking fever up to 101, pancultured and 1 dose of vancomycin given by ID. On weaning doses of Flolan. FiO2 down to 50% I have reduced PEEP to 14. Remains critically ill 04/20: No fever. Sputum cx with Staph -S pending. Fio2 50% PEEP remains at 14. TV increased to 650 to improve lung recruitment. On weaning dose of Flolan-DC after current bag 04/21:Afebrile. Hyponatremia resolving, the patient will be placed on free water flushes. 04/22:The patient had an episode of acute desaturation requiring FiO2 increased to 90%. Stat chest x-ray stat ABG aggressive pulmonary toileting and suctioning , resolution of symptoms FiO2 now 55%. ABGs within normal limits. 04/23: Tmax 99.5. Currently afebrile. O2 sat 50%. PEEP down to 13. One small bowel movement overnight. 04/24: Currently afebrile. O2 sat 45%. PEEP to 12. One BM. Tolerating tube feeds. 04/25: Afebrile. PEEP down to 11. Positive BM. Tolerating tube feeds. Awake on the ventilator with eyes open. 04/26: Afebrile. PEEP down to 10. Time to feeding. Awake and alert eyes open. 04/27: Suspected fever overnight. One bowel movement documented. Will decreased PEEP to 9. Awake and alert and follows commands. 04/28: Tmax 99.3. Currently afebrile. FiO2 increased to 70%. PEEP to 10. Awake and does follow commands. Positive BM 4 yesterday. Subjective 04/29: FiO2 down to 55%. Peak systolic 10. Awake and does follow commands. Positive BM 1 yesterday. Tolerating tube feeding. 04/30: No acute issues overnight . The patient continues to be sedated with plans for tracheostomy in the OR today. The patient follows commands when on sedation vacation. 05/01: Postop day 1 post tracheostomy tube placement, no issues overnight. Plan for CPAP trials today. 05/02: Afebrile. The patient continues on CPAP trial 15/5 , FiO2 .45%. The patient alert and responsive this a.m., continues on Precedex and fentanyl infusion. By mouth narcotics, and fentanyl patch instituted to transition all fentanyl infusion. PEG tube placement pending. 05/03: The patient's fentanyl infusion was discontinued last evening. Multimodal analgesia initiated. Patient continues on Precedex infusion, GCS 14 T. Plans today for PEG placement later on this afternoon. No acute issues overnight. 05/04 Tmax 101.0. The patient's PICC line was removed, peripheral IVs initiated. Blood, urine and sputum cultures obtained. Methylprednisolone continues to be weaned currently at 20 mg daily. Plan for weaning of Precedex infusion off today. Seroquel 25 mg twice a day added to medication regimen. The patient continues on CPAP trials. 05/05: Tmax 99.1. Overnight the patient was maintained on CPAP trials of 15/5/40% , the patient's respiratory rate continues to be low 30s, tolerated well. The sake early this a.m. the patient was noticed to have a episode of nausea and vomiting Zofran instituted. The patient continues on scheduled Reglan TID. Blood , sputum and urine cultures were obtained yesterday secondary to elevated temperature awaiting results. 05/06: The patient remains on T piece greater than 48 hours. The patient is alert oriented and cooperative. Trach site without erythema or drainage. Patient was noticed over the last 12 hours to have multiple bowel movements or in the night. Will D/C MiraLAX, lactulose and Reglan will be discontinued. Plan for possible transfer to LTAC facility. 05/07 no acute issues overnight tolerating TPs 05/27 shortly after midnight rapid response team was called due to patient's respiratory distress and hypercarbic respiratory failure with hypoxemia and cyanosis Objective Vital Signs Date Time Temp Pulse Resp B/P Pulse Ox O2 Delivery O2 Flow Rate FiO2 05/27/16 01:14 96 100 05/27/16 00:40 15.00 05/27/16 00:00 100.6 115 22 115/69 05/26/16 21:52 T-piece Intake and Output 05/26/16 05/26/16 05/27/16 08:00 16:00 00:00 Intake Total 800 ml 400 ml Output Total 450 ml 300 ml Balance 350 ml 100 ml Objective Remarks GENERAL: 50-year-old morbidly obese male, with tracheostomy, alert and oriented interactive SKIN: Integrity intact. Warm and dry. HEAD: Atraumatic. Normocephalic. EYES: Pupils equal round and slightly reactive about 3 millimeters bilaterally. ENT: NG tube in place. Tracheostomy in situ no drainage or erythema around the site NECK: Very large neck. Trachea midline. CARDIOVASCULAR: Distant heart sounds. RRR. S1, S2. No S4. Without murmur RESPIRATORY: Tracheostomy on CPAP, Breath sounds equal bilaterally. Diminished breath sounds due to body habitus. GASTROINTESTINAL: Abdomen soft, obese, nontender. Severe central obesity ,PEG tube without erythema or drainage MUSCULOSKELETAL: Extremities with trace to 1+ nonpitting bilateral lower extremity edema. NEUROLOGICAL: Alert ,RASS 0, Follows commands, moves extremities 4. Date of Insertion: May 03, 2016 Date of Insertion: Apr 02, 2016 Date of Removal: May 03, 2016 Line: PICC Side: Left Location: Antecubital A/P Assessment and Plan Neuro/Psych: Likely SERENITY Toxic metabolic encephalopathy-resolved Off any sedation Continue [place] 5/325mg every 12hrs scheduled - attempt to wean fentanyl patch 25mcgs Seroquel 25mg BID initiated 3/3 Acetaminophen for fever Pulm: Acute hypercarbic hypoxemic respiratory failure [facility] History of staph aureus pneumonia/HCAP ARDS Tracheostomy still in place Resume mechanical ventilation Atelectasis versus collapse of right global Will use a high PEEP and attempt to reopen the airway Bronchodilators every 6 hours and every 2 hours as needed CV: Monitor HR and BP keep MAP>65mmHg 2-D echo 03/26 EF 60%. No regional wall motion abnormality. Mild MR/TR. /FEN: Monitor renal function, I/O's, electrolytes replacement per protocol. Urine output 625cc/per 12 hours Bumex 0.5mg/day GI: Constipation-resolved Moderate protein calorie malnutrition Nausea and vomiting On Glucerna 1.5@45ml/hr with 1 scoop whey protein 3 times a day, no residual Protonix 40mg daily On Reglan 10mg Q8, Senna and Colace twice a day.Discontinue MiraLAX twice a day and lactulose 4 times a day. PEG tube placement- 05/03 Zofran 4 mg every 6 hours when necessary ID: Staph aureus pneumonia Possible staph bacteremia Pertinent culture 04/27 - pansensitive staph aureus 04/27 blood cultures 2 negative 04/25 - urine -no growth 04/19 - blood cultures 2 out of 4 - staph aureus 04/19 - sputum - staph aureus 04/08 - sputum - staph aureus 04/03 - sputum - staph aureus 03/30 - sputum- -staph aureus 03/27 - sputum - staph aureus 03/26 - blood - staph hominis On vancomycin 2 g IV every 12 are since 04/19 - 04/29 Azactam 04/27 through 04/29 Currently on clindamycin day #5 ID on board-Dr. Painter Heme: Leukocytosis Monitor CBC/coags Monitor WBC 10, unchanged labs every 3 days, unless clinically indicated Endo: Diabetes mellitus SSI for glycemic control (high scale) 30 units sliding scale insulin scale insulin in the past 24 hours, Levemir insulin 70 U Q12 MSK Morbid obesity Weight loss encouraged DVT, GI prophylaxis -Bilateral lower extremity SCDs. IV Protonix 40 mg daily. Lovenox 40 mg sq BID LINES: -Left upper extremity PICC line placed 04/15-05/04. Peripheral IVs x 2 Critical Care: The total critical care time was 35 minutes. Time to perform other separately billable procedures was not included in the critical care time. Jermaine Martini MD May 27, 2016 03:55 On Glucerna 1.5@45ml/hr with 1 scoop whey protein 3 times a day, no residual Protonix 40mg daily On Reglan 10mg Q8, Senna and Colace twice a day.Discontinue MiraLAX twice a day and lactulose 4 times a day. PEG tube placement- 05/03 Zofran 4 mg every 6 hours when necessary ID: Staph aureus pneumonia Possible staph bacteremia Pertinent culture 04/27 - pansensitive staph aureus 04/27 blood cultures 2 negative 04/25 - urine -no growth 04/19 - blood cultures 2 out of 4 - staph aureus 04/19 - sputum - staph aureus 04/08 - sputum - staph aureus 04/03 - sputum - staph aureus 03/30 - sputum- -staph aureus 03/27 - sputum - staph aureus 03/26 - blood - staph hominis On vancomycin 2 g IV every 12 are since 04/19 - 04/29 Azactam 04/27 through 04/29 Currently on clindamycin day #5 ID on board-Dr. Painter Heme: Leukocytosis Monitor CBC/coags Monitor WBC 11.7, unchanged labs every 3 days, unless clinically indicated Endo: Diabetes mellitus SSI for glycemic control (high scale) 30 units sliding scale insulin scale insulin in the past 24 hours, Levemir insulin 70 U Q12 MSK Morbid obesity Weight loss encouraged DVT, GI prophylaxis -Bilateral lower extremity SCDs. IV Protonix 40 mg daily. Lovenox 40 mg sq BID LINES: -Left upper extremity PICC line placed 04/15-05/04. Peripheral IVs x 2 Critical Care: Level 2 Dispo: Case management has been consulted for disposition of care. The patient T piece trials successful for 48 hours plans for LTAC transfer. Jermaine Martini MD May 27, 2016 03:55
[2016-05-27 04:13] LABS: BLOOD GAS BASE EXCESS 10.2 mmol/L (-2-2); BLOOD GAS CARBOXYHEMOGLOBIN 1.7 % (0-4); BLOOD GAS HCO3 38 mmol/L (22-26); BLOOD GAS METHEMOGLOBIN 0.8 % (0-2); BLOOD GAS O2 HGB SATURATION 88 % (90-100); BLOOD GAS PCO2 96 mmHg (38-42); BLOOD GAS PO2 69 mmHg (61-120); BLOOD GAS TOTAL HGB 11.4 G/DL (12.0-16.0); TEMP CORR TO 98.6
[2016-05-27 04:25] LABS: CRITICAL VALUE YES; DRAW SITE RT RADIAL; FIO2 98 %; LITER FLOW 8 L/M; NUMBER OF ARTERIAL PUNCTURES 2; OXYGEN DEVICE T TUBE; STAT YES; ULNAR PULSE PRESENT
[2016-05-27] MEDS: REMOVE OLD PATCH T-DERMAL SCH (04:43)
[2016-05-27] MEDS: fentaNYL 25 MCG/HR PATCH TD SCH (04:46)
[2016-05-27 05:10] LABS: BLOOD GAS BASE EXCESS 11.5 mmol/L (-2-2); BLOOD GAS CARBOXYHEMOGLOBIN 1.4 % (0-4); BLOOD GAS HCO3 35 mmol/L (22-26); BLOOD GAS METHEMOGLOBIN 0.8 % (0-2); BLOOD GAS O2 HGB SATURATION 98 % (90-100); BLOOD GAS OXYGEN CONTENT 15.1 Vol % (12.0-20.0); BLOOD GAS PCO2 40 mmHg (38-42); BLOOD GAS PO2 238 mmHg (61-120); BLOOD GAS TOTAL HGB 10.6 G/DL (12.0-16.0); TEMP CORR TO 98.6
[2016-05-27 05:12] LABS: CRITICAL VALUE YES; OXYGEN DEVICE VENTILATOR
[2016-05-27 05:13] LABS: DRAW SITE LT RADIAL; FIO2 80 %; NUMBER OF ARTERIAL PUNCTURES 1; STAT NO; ULNAR PULSE PRESENT
[2016-05-27] MEDS: FREE WATER G-TUBE SCH ×4 (06:05→21:48)
[2016-05-27] MEDS: METOCLOPRAMIDE HCL 10 MG TAB G-TUBE SCH ×3 (06:05→21:59)
[2016-05-27] MEDS: ENOXAPARIN SODIUM 40 MG/0.4 ML SYRINGE SQ SCH ×2 (06:06→18:11)
--- NOTE | 2016-05-27 08:49 | HHI.CCPN ---
Subjective Remarks/Hospital Course Patient is a 50 years old obese male with past medical history significant for undiagnosed sleep apnea, super morbid obesity, type 2 diabetes was brought to the emergency department on 03/24/16 after feeling light headed and dizzy. On presentation here was found to be hypoxemic and ABG showed severe hypoxemia and hypercarbia. For a recent driving physical he was diagnosed with low oxygen saturations. Patient's oxygen saturation the ED was in the low 80s, which was confirmed on ABG with a oxygen saturation of 78% and PO2 of 46. CTA negative for PE. Patient was initiated on BiPAP therapy with consult to pulmonary Dr. Crane. His oxygenation improved but he continued to be hypercapnic. Today a.m. on nasal cannula his pH was 7.26 and PCO2 was increased at 99, patient was somnolent was placed back on BiPAP and repeat ABG at noon showed pH 7.26 PCO2 98 and pO2 70. This was on 16 BiPAP with FiO2 50%. Critical care was consulted. On my evaluation patient is somnolent but wakes up easily. I reduced the PEEP on BiPAP from 12-7 to facilitate better ventilation. A repeat ANG showed only minimal improvement, so decision made to intubate patient. Glidescope with #4 blade was used. Only propofol was used for induction. Initially I had a Grade 1-2 view, but I was unable to pass tube through the vocal cord to trachea in two attempts. Tube slipped out of Laryngeal opening both times. Dr Garrett intubated patient after NM paralysis with succinylcholine. Post intubation ABG showed improvement in hypercapnia and oxygenation. 03/27/16: Patient remains intubated heavily sedated with propofol and fentanyl. Remained severely hypoxemic on 100% FiO2, PEEP12, chest x-ray shows bibasilar infiltrates. Flagyl added. We'll give 1 dose of vancomycin-Adjust antibiotics according to cultures. Patient super morbid obesity may prevent Prone therapy 03/28: Remains hypoxic but ABG shows marginal improvement in oxygenation. WBC increasing 20.1 today. Start vancomycin scheduled. 03/29: Oxygenation is slightly improved. FiO2 reduced to 50% today. Chest x- ray remains unchanged. On sedation hold patient does wake up and follow commands. WBC count remains at 20 03/30 No acute events overnight. Sedated with Diprivan and Fentanyl. Had T: 100.1 at 4 am. WBC trending down 15.9 today from 20. 03/31 Patient remains sedated with Diprivan, Fentanyl and intubated. Tmax 100.1. Patient required increase O2 overnight now on ACV with PEEP: 12 and FIO2 70%. 04/01: Tmax 99.7. No bowel movement since admission. Patient has bowel sounds. Arousable on the ventilator. We'll attempt prone the patient paralyzed to increase oxygenation status. 04/02: MAXIMUM TEMPERATURE 100.9. Currently 97.7. 5 10 cc stools overnight. Placed on Roto prone yesterday. Saturations currently 94% on Flolan. Diuresed overnight. Creatinine still within normal limits. 04/03: Tmax 101. Currently 99.1. Positive BM. Did not tolerate not being unprone this AM. Saturations much improved prone. Tolerating tube feeding. 04/04: Tmax 100.8. Currently 98.8. +2 L past 24 hours. Attempt to on prone today. Positive BM. C. difficile negative. Remains paralyzed. 04/05: Remains sedated, orally intubated on neuromuscular blockade on mechanical ventilation. Remains on Rota prone bed. On insulin drip. 04/06: Remains sedated, orally intubated on neuromuscular blockade, on mechanical ventilation. Remains on Rota prone bed. Insulin drip continues. 04/07 Patient remains on Rotoprone bed sedated with Diprivan, Versed, Fentanyl in addition patient is on Nimbex. Afebrile. On Insulin drip 5u/hr. 04/08 Patient remains sedated and intubated and on Nimbex. Off insulin drip. On PRVC/AC with RR 15, TV 550, IT: 1.65, PEEP: 15 and FIO2 100%. T: 100.2 at 4 am. 04/09 Patient is sedated, intubated and remains on neuromuscular blockade. Vent setting unchanged. afebrile. 04/10 Patient remains sedated and intubated and on Nimbex. On PRVC/AC, RR 15, TV 500, PEEP: 15, FIO2 90%, IT:1.65, on Flolan drip. Remains on Rotoprone bed. 04/11 minimal improvement in oxygenation, FiO2 now at 75 - continue to improve oxygenation, worsening CXR 04/13/10 continue to improve oxygenation DC'd prone position last night 04/14- improving oxygenation, Nimbex discontinued as well as prone position 04/16 Patient is sedated with Versed and Fentanyl and intubated. Off rotoprone bed. On PRVC/AC RR 15, TV 550, IT 1.65, PEEP:15, FIO2 50%. 04/17 Patient remains sedated with Versed and Fentanyl. Afebrile, tolerating tube feeds 04/18 No acute events overnight Sedated and intubated. Afebrile. On PRVC/AC RR 15 , TV 550, IT 1.65, PEEP:15, FIO2 60% 04/19: Spiking fever up to 101, pancultured and 1 dose of vancomycin given by ID. On weaning doses of Flolan. FiO2 down to 50% I have reduced PEEP to 14. Remains critically ill 04/20: No fever. Sputum cx with Staph -S pending. Fio2 50% PEEP remains at 14. TV increased to 650 to improve lung recruitment. On weaning dose of Flolan-DC after current bag 04/21:Afebrile. Hyponatremia resolving, the patient will be placed on free water flushes. 04/22:The patient had an episode of acute desaturation requiring FiO2 increased to 90%. Stat chest x-ray stat ABG aggressive pulmonary toileting and suctioning , resolution of symptoms FiO2 now 55%. ABGs within normal limits. 04/23: Tmax 99.5. Currently afebrile. O2 sat 50%. PEEP down to 13. One small bowel movement overnight. 04/24: Currently afebrile. O2 sat 45%. PEEP to 12. One BM. Tolerating tube feeds. 04/25: Afebrile. PEEP down to 11. Positive BM. Tolerating tube feeds. Awake on the ventilator with eyes open. 04/26: Afebrile. PEEP down to 10. Time to feeding. Awake and alert eyes open. 04/27: Suspected fever overnight. One bowel movement documented. Will decreased PEEP to 9. Awake and alert and follows commands. 04/28: Tmax 99.3. Currently afebrile. FiO2 increased to 70%. PEEP to 10. Awake and does follow commands. Positive BM 4 yesterday. 04/29: FiO2 down to 55%. Peak systolic 10. Awake and does follow commands. Positive BM 1 yesterday. Tolerating tube feeding. 04/30: No acute issues overnight . The patient continues to be sedated with plans for tracheostomy in the OR today. The patient follows commands when on sedation vacation. 05/01: Postop day 1 post tracheostomy tube placement, no issues overnight. Plan for CPAP trials today. 05/02: Afebrile. The patient continues on CPAP trial 15/5 , FiO2 .45%. The patient alert and responsive this a.m., continues on Precedex and fentanyl infusion. By mouth narcotics, and fentanyl patch instituted to transition all fentanyl infusion. PEG tube placement pending. 05/03: The patient's fentanyl infusion was discontinued last evening. Multimodal analgesia initiated. Patient continues on Precedex infusion, GCS 14 T. Plans today for PEG placement later on this afternoon. No acute issues overnight. 05/04 Tmax 101.0. The patient's PICC line was removed, peripheral IVs initiated. Blood, urine and sputum cultures obtained. Methylprednisolone continues to be weaned currently at 20 mg daily. Plan for weaning of Precedex infusion off today. Seroquel 25 mg twice a day added to medication regimen. The patient continues on CPAP trials. 05/05: Tmax 99.1. Overnight the patient was maintained on CPAP trials of 15/5/40% , the patient's respiratory rate continues to be low 30s, tolerated well. The sake early this a.m. the patient was noticed to have a episode of nausea and vomiting Zofran instituted. The patient continues on scheduled Reglan TID. Blood , sputum and urine cultures were obtained yesterday secondary to elevated temperature awaiting results. 05/06: The patient remains on T piece greater than 48 hours. The patient is alert oriented and cooperative. Trach site without erythema or drainage. Patient was noticed over the last 12 hours to have multiple bowel movements or in the night. Will D/C MiraLAX, lactulose and Reglan will be discontinued. Plan for possible transfer to LTAC facility. 05/07 no acute issues overnight tolerating TPs 05/27 shortly after midnight rapid response team was called due to patient's respiratory distress and hypercarbic respiratory failure with hypoxemia and cyanosis Subjective 05/27: Tracheostomy was exchanged this morning to a #6 Shiley fenestrated cuffed. Currently on PRVC with PEEP of 10. Saturations are much improved. Awake and alert and following commands. Requesting diet Objective Vital Signs Date Time Temp Pulse Resp B/P Pulse Ox O2 Delivery O2 Flow Rate FiO2 05/27/16 07:52 98 60 05/27/16 06:00 102 05/27/16 05:50 16 05/27/16 04:00 99.3 126/68 05/27/16 00:40 15.00 05/26/16 21:52 T-piece Intake and Output 05/26/16 05/26/16 05/27/16 08:00 16:00 00:00 Intake Total 800 ml 400 ml Output Total 450 ml 300 ml Balance 350 ml 100 ml Imaging Last Impressions Chest X-Ray 05/27/16 0000 Signed Impressions: Service Date/Time: Friday, May 27, 2016 02:39 - CONCLUSION: 1. Limited study. 2. Grossly unchanged basilar consolidations. 3. Tracheostomy tube. Chano Dutta Jr., MD Liver Ultrasound 05/09/16 0000 Signed Impressions: Service Date/Time: Monday, May 09, 2016 22:28 - CONCLUSION: 1. Enlarged, fatty liver. 2. Small stones or tumefactive sludge adherent to one of the gallbladder arcos. 3. Splenomegaly. 4. Pancreas is obscured by overlying bowel gas and patient's body habitus. Arthur Kennedy MD Abdomen X-Ray 05/01/16 0000 Signed Impressions: Service Date/Time: Sunday, May 01, 2016 17:28 - CONCLUSION: No evidence of obstruction. Feeding tube overlies the distal stomach, May have to be advanced slightly to reach the duodenum. Nick Jon MD Chest CT 03/28/16 0836 Signed Impressions: Service Date/Time: Monday, March 28, 2016 09:57 - CONCLUSION: Development areas of air bronchograms and consolidation more prominent in the right and left posterior basilar segments of the lower lobes. ET tube above the chanelle. Bernard Hartman MD CT Angiography 03/24/16 1121 Signed Impressions: Service Date/Time: Thursday, March 24, 2016 12:47 - CONCLUSION: 1. There is respiratory motion artifact but no PE is identified through most of the segmental level pulmonary arteries. 2. Mildly enlarged main pulmonary artery may indicate pulmonary arterial hypertension. 3. 11 mm left lower lobe noncalcified pulmonary nodule. Suggest correlation with any prior imaging studies that could confirm longer-term stability. If none are available consider short-term followup noncontrast chest CT in approximately 3 months. Ubaldo Rodas MD Objective Remarks GENERAL: 50-year-old morbidly obese male, with tracheostomy, alert and oriented and interactive SKIN: Integrity intact. Warm and dry. HEAD: Atraumatic. Normocephalic. EYES: Pupils equal round and slightly reactive about 3 millimeters bilaterally. ENT: NG tube in place. Tracheostomy in situ no drainage or erythema around the site NECK: Very large neck. Trachea midline. CARDIOVASCULAR: Distant heart sounds. RRR. S1, S2. No S4. Without murmur RESPIRATORY: Status post percutaneous Tracheostomy with some hemoptysis, Breath sounds equal bilaterally. Diminished breath sounds due to body habitus. GASTROINTESTINAL: Abdomen soft, obese, nontender. Severe central obesity, PEG tube without erythema or drainage MUSCULOSKELETAL: Extremities with trace to 1+ nonpitting bilateral lower extremity edema. NEUROLOGICAL: Alert, Follows commands, moves extremities 4. Date of Insertion: May 03, 2016 Date of Insertion: Apr 02, 2016 Date of Removal: May 03, 2016 Line: PICC Side: Left Location: Antecubital A/P Assessment and Plan Neuro/Psych: Likely SERENITY Toxic metabolic encephalopathy-resolved Continue [place] 5/325mg every 12hrs scheduled - attempt to wean fentanyl patch 25 to 72 hours Seroquel 25mg BID initiated 3/ Lyrica 50 mg by mouth daily for neuropathy On oxycodone 5 mg by mouth every 6 hours when necessary faint 7-10 Acetaminophen for fever Pulm: Acute hypercarbic hypoxemic respiratory failure JAC[facility] History of staph aureus pneumonia/HCAP ARDS Tracheostomy exchange to #6 Shiley fenestrated cuffed overnight PRVC 16/600/0.9/10/60 Ventilator bundle Bronchial dilator therapy every 6 hours With Atrovent nebs every 2 hours when necessary dyspnea Continue high PEEP and attempt to reopen the airway CV: Monitor HR and BP keep MAP>65mmHg 2-D echo 03/26 EF 60%. No regional wall motion abnormality. Mild MR/TR. /FEN: Monitor renal function, I/O's, electrolytes replacement per protocol. GI: Constipation-resolved Moderate protein calorie malnutrition Nausea and vomiting On Glucerna 1.5@45ml/hr with 1 scoop whey protein 3 times a day, no residual Protonix 40mg daily On Reglan 10mg Q8, Senna and Colace twice a day PEG tube placement- 05/03 Zofran 4 mg every 6 hours when necessary ID: Staph aureus pneumonia Possible staph bacteremia Pertinent culture 04/27 - pansensitive staph aureus 04/27 blood cultures 2 negative 04/25 - urine -no growth 04/19 - blood cultures 2 out of 4 - staph aureus 04/19 - sputum - staph aureus 04/08 - sputum - staph aureus 04/03 - sputum - staph aureus 03/30 - sputum- -staph aureus 03/27 - sputum - staph aureus 03/26 - blood - staph hominis On vancomycin 2 g IV every 12 are since 04/19 - 04/29 Azactam 04/27 through 04/29 ID on board-Dr. Painter Heme: Leukocytosis Monitor CBC/coags Monitor WBC 10, unchanged labs every 3 days, unless clinically indicated Endo: Diabetes mellitus SSI for glycemic control with sliding scale insulin every 4 hours Levemir insulin 35 U Q12 MSK Morbid obesity Weight loss encouraged DVT, GI prophylaxis -Bilateral lower extremity SCDs. IV Protonix 40 mg daily. Lovenox 40 mg sq BID LINES: -Left upper extremity PICC line placed 04/15-05/04. Peripheral IVs x 2 Critical Care: The total critical care time was 35 minutes. Time to perform other separately billable procedures was not included in the critical care time. Codey Florentino MD May 27, 2016 08:49
[2016-05-27] MEDS: SILVER SULFADIAZINE 1% CR 400 GM JAR TOPICAL SCH (09:00)
[2016-05-27] MEDS: BENEPROTEIN POWDER 1 PACK G-TUBE SCH ×3 (09:00→20:29)
[2016-05-27] MEDS: SENNOSIDES SYRUP 8.8 MG/5 ML CUP PO/TUBE SCH ×2 (09:38→20:28)
[2016-05-27] MEDS: BACLOFEN 10 MG TAB PO SCH ×2 (09:38→20:29)
[2016-05-27] MEDS: POLYETHYLENE GLYCOL 17 GM PKG PO SCH ×2 (09:38→20:28)
[2016-05-27] MEDS: ACETAMINOPHEN/HYDROcodone 325 MG/5 MG TAB PO SCH ×2 (09:38→20:30)
[2016-05-27] MEDS: DOCUSATE SODIUM 100 MG/10 ML UDC PO SCH ×2 (09:38→20:28)
[2016-05-27] MEDS: QUEtiapine FUMARATE 25 MG TAB PO SCH ×2 (09:38→20:28)
[2016-05-27] MEDS: LACTOBACILLUS ACIDOPHILUS TAB PO SCH ×3 (09:38→18:11)
[2016-05-27] MEDS: POTASSIUM CHLORIDE 10 MEQ CONTROLLED RELEASE TAB PO SCH (09:38)
[2016-05-27] MEDS: PANTOPRAZOLE SOD 40 MG DELAYED RELEASE TAB PO SCH (09:39)
[2016-05-27] MEDS: SODIUM CHLORIDE 0.9% FLUSH 5 ML FLUSH IVF SCH (09:39)
[2016-05-27] MEDS: INSULIN DETEMIR 100 UNITS/ML VIAL SQ SCH ×2 (09:39→20:31)
[2016-05-27] MEDS: RESP: ALBUTEROL 2.5 MG/IPRATROPIUM 0.5 MG NEB (SCH) NEB ×3 (09:40→21:17)
[2016-05-27] MEDS: SODIUM CHLOR 0.9% 1000 ML INJ 1,000 ML IV SCH ×2 (09:41→19:00)
[2016-05-27 10:58] LABS: AUTOMATED NEUTROPHIL # 14.6 TH/MM3 (1.8-7.7); BASOPHIL # 0.1 TH/MM3 (0-0.2); BASOPHIL % 0.5 % (0.0-2.0); EOSINOPHIL # 0.1 TH/MM3 (0-0.4); EOSINOPHIL % 0.6 % (0.0-4.0); HEMATOCRIT 30.7 % (39.0-51.0); LYMPH % 13.6 % (9.0-44.0); LYMPHOCYTE # 2.5 TH/MM3 (1.0-4.8); MEAN CELL VOLUME 84.2 FL (80.0-100.0); MEAN CORPUSCULAR HEMOGLOBIN 28.1 PG (27.0-34.0); MEAN CORPUSCULAR HGB CONC 33.3 % (32.0-36.0); MONO % 5.8 % (0.0-8.0); NEUT % 79.5 % (16.0-70.0); PLATELET COUNT 384 TH/MM3 (150-450); RED BLOOD COUNT 3.65 MIL/MM3 (4.50-5.90); RED CELL DISTRIBUTION WIDTH 18.8 % (11.6-17.2); WHITE BLOOD COUNT 18.4 TH/MM3 (4.0-11.0)
[2016-05-27 10:59] LABS: HEMO FLAGS AUTO DIFF
[2016-05-27 11:09] LABS: APTT (PATIENT) 28.5 SEC (24.3-30.1); PROTHROMBIN TIME - PATIENT 11.2 SEC (9.8-11.6)
[2016-05-27 11:16] LABS: ALT (GPT) 43 U/L (12-78); ANION GAP 6 MEQ/L (5-15); AST (GOT) 18 U/L (15-37); BICARBONATE 35.8 MEQ/L (21.0-32.0); BLOOD UREA NITROGEN 9 MG/DL (7-18); CHLORIDE 94 MEQ/L (98-107); GLOMERULAR FILTRATION RATE 204 ML/MIN (>89); POTASSIUM 4.3 MEQ/L (3.5-5.1); SODIUM (NA) 136 MEQ/L (136-145)
[2016-05-27 11:18] LABS: ALKALINE PHOSPHATASE 75 U/L (45-117); CREATINE KINASE 9 U/L (39-308); TOTAL BILIRUBIN ADULT 0.5 MG/DL (0.2-1.0)
[2016-05-27] MEDS: INSULIN NovoLIN REGULAR SUPPLEMENTAL SCALE SQ SCH ×3 (12:00→20:00)
[2016-05-27] MEDS: PREGABALIN 25 MG CAP PO SCH (13:03)
[2016-05-27] MEDS: BETAMETHASONE/CLOTRIMAZOLE CREAM 15 GM TOPICAL SCH ×2 (13:12→20:35)
[2016-05-27] MEDS: NYSTATIN 100,000 U/GM PWD 15 GM BTL TOPICAL SCH ×2 (13:12→20:36)
[2016-05-27] MEDS: CHLORHEXIDINE 0.12% (ORAL KIT) 15 ML CUP MT SCH ×2 (13:13→20:29)
[2016-05-27 13:44] LABS: SCAN/DIFF AUTO DIFF CONFIRMED
[2016-05-27] MEDS: ARTIFICIAL TEARS OPTH OINT 3.5 APPLIC/3.5 GM TUBO EACH EYE SCH ×2 (18:13→20:35)
[2016-05-28] VITALS (20 sets, daily range): BP systolic 112–124; BP diastolic 54–72; PULSE 4–113; RESP 16–20; TEMP 98.3–100.1; O2SAT 90–100
[2016-05-28] MEDS: ARTIFICIAL TEARS OPTH SOLN 15 ML BTL EACH EYE SCH ×6 (01:24→20:18)
[2016-05-28] MEDS: RESP: ALBUTEROL 2.5 MG/IPRATROPIUM 0.5 MG NEB (SCH) NEB ×4 (03:22→20:41)
[2016-05-28 04:23] LABS: HEMATOCRIT 30.3 % (39.0-51.0); MEAN CELL VOLUME 85.4 FL (80.0-100.0); MEAN CORPUSCULAR HGB CONC 31.7 % (32.0-36.0); PLATELET COUNT 351 TH/MM3 (150-450); RED BLOOD COUNT 3.55 MIL/MM3 (4.50-5.90); RED CELL DISTRIBUTION WIDTH 19.5 % (11.6-17.2); REVIEW FLAG FINAL; WHITE BLOOD COUNT 17.6 TH/MM3 (4.0-11.0)
[2016-05-28 04:41] LABS: BICARBONATE 31.4 MEQ/L (21.0-32.0); POTASSIUM 3.7 MEQ/L (3.5-5.1)
[2016-05-28] MEDS: FREE WATER G-TUBE SCH ×4 (05:42→23:49)
[2016-05-28] MEDS: INSULIN NovoLIN REGULAR SUPPLEMENTAL SCALE SQ SCH ×3 (05:43→14:34)
[2016-05-28] MEDS: METOCLOPRAMIDE HCL 10 MG TAB G-TUBE SCH ×3 (05:59→20:16)
[2016-05-28] MEDS: ENOXAPARIN SODIUM 40 MG/0.4 ML SYRINGE SQ SCH ×2 (05:59→17:00)
--- NOTE | 2016-05-28 05:59 | RADRPT ---
EXAM DATE/TIME: 05/28/2016 04:49 [facility] COMPARISON: CHEST SINGLE AP, May 27, 2016, 2:39. INDICATIONS : Shortness of breath, possible pulmonary disease. MEDICAL HISTORY : Diabetes mellitus type II. SURGICAL HISTORY : Tracheostomy ENCOUNTER: Subsequent ACUITY: 2 months PAIN SCORE: 0/10 LOCATION: Bilateral chest FINDINGS: A single view of the chest demonstrates stable bibasilar densities greater in the right lower lobe. T racheostomy tube unchanged. Osseous structures are intact. CONCLUSION: Unchanged bibasilar densities. Wale Dalal MD on May 28, 2016 at 5:57 Board Certified Radiologist. This report was verified electronically.
[2016-05-28] MEDS: SENNOSIDES SYRUP 8.8 MG/5 ML CUP PO/TUBE SCH ×2 (09:00→20:16)
[2016-05-28] MEDS: INSULIN DETEMIR 100 UNITS/ML VIAL SQ SCH ×2 (09:00→20:16)
[2016-05-28] MEDS: DOCUSATE SODIUM 100 MG/10 ML UDC PO SCH ×2 (09:00→20:18)
[2016-05-28] MEDS: POLYETHYLENE GLYCOL 17 GM PKG PO SCH ×2 (09:00→20:18)
[2016-05-28] MEDS: PANTOPRAZOLE SOD 40 MG DELAYED RELEASE TAB PO SCH (09:18)
[2016-05-28] MEDS: LACTOBACILLUS ACIDOPHILUS TAB PO SCH ×3 (09:18→17:00)
[2016-05-28] MEDS: CHLORHEXIDINE 0.12% (ORAL KIT) 15 ML CUP MT SCH ×2 (09:18→20:16)
[2016-05-28] MEDS: ARTIFICIAL TEARS OPTH OINT 3.5 APPLIC/3.5 GM TUBO EACH EYE SCH ×2 (09:18→20:18)
[2016-05-28] MEDS: SODIUM CHLORIDE 0.9% FLUSH 5 ML FLUSH IVF SCH (09:18)
[2016-05-28] MEDS: BENEPROTEIN POWDER 1 PACK G-TUBE SCH ×3 (09:18→17:00)
[2016-05-28] MEDS: ACETAMINOPHEN/HYDROcodone 325 MG/5 MG TAB PO SCH ×2 (09:19→20:17)
[2016-05-28] MEDS: QUEtiapine FUMARATE 25 MG TAB PO SCH ×2 (09:19→20:16)
[2016-05-28] MEDS: BETAMETHASONE/CLOTRIMAZOLE CREAM 15 GM TOPICAL SCH ×2 (09:19→20:20)
[2016-05-28] MEDS: POTASSIUM CHLORIDE 10 MEQ CONTROLLED RELEASE TAB PO SCH (09:19)
[2016-05-28] MEDS: BACLOFEN 10 MG TAB PO SCH ×2 (09:19→20:16)
[2016-05-28] MEDS: NYSTATIN 100,000 U/GM PWD 15 GM BTL TOPICAL SCH ×2 (09:19→20:18)
[2016-05-28] MEDS: PREGABALIN 25 MG CAP PO SCH (09:19)
--- NOTE | 2016-05-28 09:19 | HHI.CCPN ---
Subjective Remarks/Hospital Course Patient is a 50 years old obese male with past medical history significant for undiagnosed sleep apnea, super morbid obesity, type 2 diabetes was brought to the emergency department on 03/24/16 after feeling light headed and dizzy. On presentation here was found to be hypoxemic and ABG showed severe hypoxemia and hypercarbia. For a recent driving physical he was diagnosed with low oxygen saturations. Patient's oxygen saturation the ED was in the low 80s, which was confirmed on ABG with a oxygen saturation of 78% and PO2 of 46. CTA negative for PE. Patient was initiated on BiPAP therapy with consult to pulmonary Dr. Crane. His oxygenation improved but he continued to be hypercapnic. Today a.m. on nasal cannula his pH was 7.26 and PCO2 was increased at 99, patient was somnolent was placed back on BiPAP and repeat ABG at noon showed pH 7.26 PCO2 98 and pO2 70. This was on 16 BiPAP with FiO2 50%. Critical care was consulted. On my evaluation patient is somnolent but wakes up easily. I reduced the PEEP on BiPAP from 12-7 to facilitate better ventilation. A repeat ANG showed only minimal improvement, so decision made to intubate patient. Glidescope with #4 blade was used. Only propofol was used for induction. Initially I had a Grade 1-2 view, but I was unable to pass tube through the vocal cord to trachea in two attempts. Tube slipped out of Laryngeal opening both times. Dr Garrett intubated patient after NM paralysis with succinylcholine. Post intubation ABG showed improvement in hypercapnia and oxygenation. 03/27/16: Patient remains intubated heavily sedated with propofol and fentanyl. Remained severely hypoxemic on 100% FiO2, PEEP12, chest x-ray shows bibasilar infiltrates. Flagyl added. We'll give 1 dose of vancomycin-Adjust antibiotics according to cultures. Patient super morbid obesity may prevent Prone therapy 03/28: Remains hypoxic but ABG shows marginal improvement in oxygenation. WBC increasing 20.1 today. Start vancomycin scheduled. 03/29: Oxygenation is slightly improved. FiO2 reduced to 50% today. Chest x- ray remains unchanged. On sedation hold patient does wake up and follow commands. WBC count remains at 20 03/30 No acute events overnight. Sedated with Diprivan and Fentanyl. Had T: 100.1 at 4 am. WBC trending down 15.9 today from 20. 03/31 Patient remains sedated with Diprivan, Fentanyl and intubated. Tmax 100.1. Patient required increase O2 overnight now on ACV with PEEP: 12 and FIO2 70%. 04/01: Tmax 99.7. No bowel movement since admission. Patient has bowel sounds. Arousable on the ventilator. We'll attempt prone the patient paralyzed to increase oxygenation status. 04/02: MAXIMUM TEMPERATURE 100.9. Currently 97.7. 5 10 cc stools overnight. Placed on Roto prone yesterday. Saturations currently 94% on Flolan. Diuresed overnight. Creatinine still within normal limits. 04/03: Tmax 101. Currently 99.1. Positive BM. Did not tolerate not being unprone this AM. Saturations much improved prone. Tolerating tube feeding. 04/04: Tmax 100.8. Currently 98.8. +2 L past 24 hours. Attempt to on prone today. Positive BM. C. difficile negative. Remains paralyzed. 04/05: Remains sedated, orally intubated on neuromuscular blockade on mechanical ventilation. Remains on Rota prone bed. On insulin drip. 04/06: Remains sedated, orally intubated on neuromuscular blockade, on mechanical ventilation. Remains on Rota prone bed. Insulin drip continues. 04/07 Patient remains on Rotoprone bed sedated with Diprivan, Versed, Fentanyl in addition patient is on Nimbex. Afebrile. On Insulin drip 5u/hr. 04/08 Patient remains sedated and intubated and on Nimbex. Off insulin drip. On PRVC/AC with RR 15, TV 550, IT: 1.65, PEEP: 15 and FIO2 100%. T: 100.2 at 4 am. 04/09 Patient is sedated, intubated and remains on neuromuscular blockade. Vent setting unchanged. afebrile. 04/10 Patient remains sedated and intubated and on Nimbex. On PRVC/AC, RR 15, TV 500, PEEP: 15, FIO2 90%, IT:1.65, on Flolan drip. Remains on Rotoprone bed. 04/11 minimal improvement in oxygenation, FiO2 now at 75 - continue to improve oxygenation, worsening CXR 04/13/10 continue to improve oxygenation DC'd prone position last night 04/14- improving oxygenation, Nimbex discontinued as well as prone position 04/16 Patient is sedated with Versed and Fentanyl and intubated. Off rotoprone bed. On PRVC/AC RR 15, TV 550, IT 1.65, PEEP:15, FIO2 50%. 04/17 Patient remains sedated with Versed and Fentanyl. Afebrile, tolerating tube feeds 04/18 No acute events overnight Sedated and intubated. Afebrile. On PRVC/AC RR 15 , TV 550, IT 1.65, PEEP:15, FIO2 60% 04/19: Spiking fever up to 101, pancultured and 1 dose of vancomycin given by ID. On weaning doses of Flolan. FiO2 down to 50% I have reduced PEEP to 14. Remains critically ill 04/20: No fever. Sputum cx with Staph -S pending. Fio2 50% PEEP remains at 14. TV increased to 650 to improve lung recruitment. On weaning dose of Flolan-DC after current bag 04/21:Afebrile. Hyponatremia resolving, the patient will be placed on free water flushes. 04/22:The patient had an episode of acute desaturation requiring FiO2 increased to 90%. Stat chest x-ray stat ABG aggressive pulmonary toileting and suctioning , resolution of symptoms FiO2 now 55%. ABGs within normal limits. 04/23: Tmax 99.5. Currently afebrile. O2 sat 50%. PEEP down to 13. One small bowel movement overnight. 04/24: Currently afebrile. O2 sat 45%. PEEP to 12. One BM. Tolerating tube feeds. 04/25: Afebrile. PEEP down to 11. Positive BM. Tolerating tube feeds. Awake on the ventilator with eyes open. 04/26: Afebrile. PEEP down to 10. Time to feeding. Awake and alert eyes open. 04/27: Suspected fever overnight. One bowel movement documented. Will decreased PEEP to 9. Awake and alert and follows commands. 04/28: Tmax 99.3. Currently afebrile. FiO2 increased to 70%. PEEP to 10. Awake and does follow commands. Positive BM 4 yesterday. 04/29: FiO2 down to 55%. Peak systolic 10. Awake and does follow commands. Positive BM 1 yesterday. Tolerating tube feeding. 04/30: No acute issues overnight . The patient continues to be sedated with plans for tracheostomy in the OR today. The patient follows commands when on sedation vacation. 05/01: Postop day 1 post tracheostomy tube placement, no issues overnight. Plan for CPAP trials today. 05/02: Afebrile. The patient continues on CPAP trial 15/5 , FiO2 .45%. The patient alert and responsive this a.m., continues on Precedex and fentanyl infusion. By mouth narcotics, and fentanyl patch instituted to transition all fentanyl infusion. PEG tube placement pending. 05/03: The patient's fentanyl infusion was discontinued last evening. Multimodal analgesia initiated. Patient continues on Precedex infusion, GCS 14 T. Plans today for PEG placement later on this afternoon. No acute issues overnight. 05/04 Tmax 101.0. The patient's PICC line was removed, peripheral IVs initiated. Blood, urine and sputum cultures obtained. Methylprednisolone continues to be weaned currently at 20 mg daily. Plan for weaning of Precedex infusion off today. Seroquel 25 mg twice a day added to medication regimen. The patient continues on CPAP trials. 05/05: Tmax 99.1. Overnight the patient was maintained on CPAP trials of 15/5/40% , the patient's respiratory rate continues to be low 30s, tolerated well. The sake early this a.m. the patient was noticed to have a episode of nausea and vomiting Zofran instituted. The patient continues on scheduled Reglan TID. Blood , sputum and urine cultures were obtained yesterday secondary to elevated temperature awaiting results. 05/06: The patient remains on T piece greater than 48 hours. The patient is alert oriented and cooperative. Trach site without erythema or drainage. Patient was noticed over the last 12 hours to have multiple bowel movements or in the night. Will D/C MiraLAX, lactulose and Reglan will be discontinued. Plan for possible transfer to LTAC facility. 05/07 no acute issues overnight tolerating TPs 05/27 shortly after midnight rapid response team was called due to patient's respiratory distress and hypercarbic respiratory failure with hypoxemia and cyanosis 05/27: Tracheostomy was exchanged this morning to a #6 Shiley fenestrated cuffed. Currently on PRVC with PEEP of 10. Saturations are much improved. Awake and alert and following commands. Requesting diet. 05/28: Awake and alert. On mechanical ventilation via tracheostomy. Following commands. Objective Vital Signs Date Time Temp Pulse Resp B/P Pulse Ox O2 Delivery O2 Flow Rate FiO2 05/28/16 08:26 97 50 05/28/16 06:00 101 05/28/16 04:00 98.6 19 115/54 05/27/16 19:00 Mechanical Ventilator 05/27/16 00:40 15.00 Intake and Output 05/27/16 05/27/16 05/28/16 08:00 16:00 00:00 Intake Total 1350 ml 515 ml 846 ml Output Total 1500 ml 900 ml 600 ml Balance -150 ml -385 ml 246 ml Result Diagram: 05/28/16 0353 05/28/16 0353 Imaging Last Impressions Chest X-Ray 05/27/16 0000 Signed Impressions: Service Date/Time: Friday, May 27, 2016 02:39 - CONCLUSION: 1. Limited study. 2. Grossly unchanged basilar consolidations. 3. Tracheostomy tube. Chano Dutta Jr., MD Liver Ultrasound 05/09/16 0000 Signed Impressions: Service Date/Time: Monday, May 09, 2016 22:28 - CONCLUSION: 1. Enlarged, fatty liver. 2. Small stones or tumefactive sludge adherent to one of the gallbladder arcos. 3. Splenomegaly. 4. Pancreas is obscured by overlying bowel gas and patient's body habitus. Arthur Kennedy MD Abdomen X-Ray 05/01/16 0000 Signed Impressions: Service Date/Time: Sunday, May 01, 2016 17:28 - CONCLUSION: No evidence of obstruction. Feeding tube overlies the distal stomach, May have to be advanced slightly to reach the duodenum. Nick Jon MD Chest CT 03/28/16 0836 Signed Impressions: Service Date/Time: Monday, March 28, 2016 09:57 - CONCLUSION: Development areas of air bronchograms and consolidation more prominent in the right and left posterior basilar segments of the lower lobes. ET tube above the chanelle. Bernard Hartman MD CT Angiography 03/24/16 1121 Signed Impressions: Service Date/Time: Thursday, March 24, 2016 12:47 - CONCLUSION: 1. There is respiratory motion artifact but no PE is identified through most of the segmental level pulmonary arteries. 2. Mildly enlarged main pulmonary artery may indicate pulmonary arterial hypertension. 3. 11 mm left lower lobe noncalcified pulmonary nodule. Suggest correlation with any prior imaging studies that could confirm longer-term stability. If none are available consider short-term followup noncontrast chest CT in approximately 3 months. Ubaldo Rodas MD Objective Remarks GENERAL: 50-year-old morbidly obese male, with tracheostomy, alert and oriented and interactive SKIN: Integrity intact. Warm and dry. HEAD: Atraumatic. Normocephalic. EYES: Pupils equal round and slightly reactive about 3 millimeters bilaterally. ENT: NG tube in place. Tracheostomy in situ no drainage or erythema around the site NECK: Very large neck. Trachea midline. CARDIOVASCULAR: Distant heart sounds. RRR. S1, S2. No S4. Without murmur RESPIRATORY: Status post percutaneous Tracheostomy. On mechanical ventilation, Breath sounds equal bilaterally. Diminished breath sounds due to body habitus. GASTROINTESTINAL: Abdomen soft, obese, nontender. Severe central obesity, PEG tube without erythema or drainage MUSCULOSKELETAL: Extremities with trace to 1+ nonpitting bilateral lower extremity edema. NEUROLOGICAL: Alert, Follows commands, moves extremities 4. Date of Insertion: May 03, 2016 Date of Insertion: Apr 02, 2016 Date of Removal: May 03, 2016 Line: PICC Side: Left Location: Antecubital A/P Assessment and Plan Neuro/Psych: Likely SERENITY Toxic metabolic encephalopathy-resolved Continue Roscoe 5/325mg every 12hrs scheduled - attempt to wean fentanyl patch 25 to 72 hours Seroquel 25mg BID initiated 05/04 Lyrica 50 mg by mouth daily for neuropathy On oxycodone 5 mg by mouth every 6 hours when necessary faint 7-10 Acetaminophen for fever Pulm: Acute hypercarbic hypoxemic respiratory failure JACOB OHS History of staph aureus pneumonia/HCAP ARDS Tracheostomy exchange to #6 Shiley fenestrated cuffed on 05/27 PRVC 16/600/0.9/8/50 Ventilator bundle Bronchial dilator therapy every 6 hours With Atrovent nebs every 2 hours when necessary dyspnea Decrease PEEP from +8 to +5 on 05/28 and if tolerated initiate C Pap trials. CV: Monitor HR and BP keep MAP>65mmHg 2-D echo 03/26 EF 60%. No regional wall motion abnormality. Mild MR/TR. /FEN: Monitor renal function, I/O's, electrolytes replacement per protocol. GI: Constipation-resolved Moderate protein calorie malnutrition Nausea and vomiting On Glucerna 1.5@45ml/hr with 1 scoop whey protein 3 times a day, no residual Protonix 40mg daily On Reglan 10mg Q8, Senna and Colace twice a day PEG tube placement- 05/03 Zofran 4 mg every 6 hours when necessary ID: Staph aureus pneumonia Possible staph bacteremia Pertinent culture 04/27 - pansensitive staph aureus 04/27 blood cultures 2 negative 04/25 - urine -no growth 04/19 - blood cultures 2 out of 4 - staph aureus 04/19 - sputum - staph aureus 04/08 - sputum - staph aureus 04/03 - sputum - staph aureus 03/30 - sputum- -staph aureus 03/27 - sputum - staph aureus 03/26 - blood - staph hominis On vancomycin 2 g IV every 12 are since 04/19 - 04/29 Azactam 04/27 through 04/29 ID on board-Dr. Painter Heme: Leukocytosis Monitor CBC/coags Monitor WBC 10, unchanged labs every 3 days, unless clinically indicated Endo: Diabetes mellitus SSI for glycemic control with sliding scale insulin every 4 hours Levemir insulin 35 U Q12 MSK Morbid obesity Weight loss encouraged DVT, GI prophylaxis -Bilateral lower extremity SCDs. IV Protonix 40 mg daily. Lovenox 40 mg sq BID LINES: -Left upper extremity PICC line placed 04/15-05/04. Peripheral IVs x 2 Critical Care: The total critical care time was 35 minutes. Time to perform other separately billable procedures was not included in the critical care time. Aditya Monge MD May 28, 2016 09:19
[2016-05-28] MEDS: SILVER SULFADIAZINE 1% CR 400 GM JAR TOPICAL SCH (09:20)
--- NOTE | 2016-05-28 15:45 | HHI.PR ---
Subjective Remarks BACK ON THE VENTILATOR ALERT RESPONDS APPROPRIATELY Objective Vital Signs Date Time Temp Pulse Resp B/P Pulse Ox O2 Delivery O2 Flow Rate FiO2 05/28/16 14:00 85 05/28/16 12:00 98.3 94 16 115/67 96 05/28/16 12:00 50 05/28/16 12:00 94 05/28/16 11:50 95 50 05/28/16 10:00 96 05/28/16 08:26 97 50 05/28/16 08:00 99.8 96 16 112/64 96 05/28/16 08:00 97 05/28/16 08:00 50 05/28/16 07:00 96 Mechanical Ventilator 50 05/28/16 06:00 101 05/28/16 04:00 50 05/28/16 04:00 98.6 101 19 115/54 100 05/28/16 04:00 101 05/28/16 03:15 98 50 05/28/16 02:00 91 05/28/16 01:10 97 50 05/28/16 00:00 99.3 113 20 124/72 98 05/28/16 00:00 113 05/28/16 00:00 50 05/27/16 22:18 97 50 05/27/16 22:00 102 05/27/16 20:00 100 05/27/16 20:00 50 05/27/16 20:00 99.7 100 16 123/66 94 05/27/16 19:58 96 50 05/27/16 19:00 95 Mechanical Ventilator 50 05/27/16 18:00 92 05/27/16 16:00 92 05/27/16 16:00 98.7 92 16 123/74 97 05/27/16 16:00 50 05/27/16 15:59 97 50 I/O 05/27/16 05/27/16 05/27/16 05/28/16 05/28/16 05/28/16 07:00 15:00 23:00 07:00 15:00 23:00 Intake Total 1350 ml 515 ml 846 ml 1142 ml 1483 ml Output Total 1500 ml 900 ml 600 ml 600 ml 475 ml Balance -150 ml -385 ml 246 ml 542 ml 1008 ml Intake Oral 120 ml 0 ml 160 ml 100 ml IV Total 1000 ml 400 ml 656 ml 769 ml 839 ml Tube Feeding 313 ml 344 ml Tube Irrigant 30 ml 15 ml 30 ml 60 ml Other 200 ml 100 ml 200 ml Output Urine Total 1500 ml 900 ml 600 ml 600 ml 475 ml # Bowel Movements 1 0 0 2 Result Diagram: 05/28/1635205/28/16352 Objective Remarks GENERAL: SKIN: Warm and dry. HEAD: Atraumatic. Normocephalic. EYES: Pupils equal and round. No scleral icterus. No injection or drainage. ENT: No nasal bleeding or discharge. Mucous membranes pink and moist. NECK: Trachea midline. No JVD. CARDIOVASCULAR: Regular rate and rhythm. RESPIRATORY: No accessory muscle use. Clear to auscultation. Breath sounds equal bilaterally. GASTROINTESTINAL: Abdomen soft, non-tender, nondistended. Hepatic and splenic margins not palpable. MUSCULOSKELETAL: Extremities without clubbing, cyanosis, or edema. No obvious deformities. NEUROLOGICAL: Awake and alert. No obvious cranial nerve deficits. Motor grossly within normal limits. Five out of 5 muscle strength in the arms and legs. Normal speech. PSYCHIATRIC: Appropriate mood and affect; insight and judgment normal. Assessment and Plan Assessment and Plan now on THE VENTILATOR RESPIRATORY FAILURE SEPSIS RESOLVED ARDS JACOB/CSA S/P TRACH. PLAN PULM TOILET INCREASE Activity CONTINUE VENT SUPPORT WEAN TOLERATED Orlando Perry MD May 28, 2016 15:45
[2016-05-29] VITALS (18 sets, daily range): BP systolic 111–149; BP diastolic 59–73; PULSE 82–103; RESP 14–27; TEMP 98.5–99.9; O2SAT 92–99
[2016-05-29] MEDS: ARTIFICIAL TEARS OPTH SOLN 15 ML BTL EACH EYE SCH ×6 (01:35→21:36)
[2016-05-29] MEDS: RESP: ALBUTEROL 2.5 MG/IPRATROPIUM 0.5 MG NEB (SCH) NEB ×4 (03:19→20:06)
[2016-05-29] MEDS: METOCLOPRAMIDE HCL 10 MG TAB G-TUBE SCH ×3 (05:04→21:26)
[2016-05-29] MEDS: FREE WATER G-TUBE SCH ×3 (05:04→16:53)
[2016-05-29] MEDS: ENOXAPARIN SODIUM 40 MG/0.4 ML SYRINGE SQ SCH ×2 (05:04→16:52)
[2016-05-29] MEDS: INSULIN NovoLIN REGULAR SUPPLEMENTAL SCALE SQ SCH ×2 (05:07→14:39)
[2016-05-29] MEDS: CHLORHEXIDINE 0.12% (ORAL KIT) 15 ML CUP MT SCH ×2 (08:00→21:24)
[2016-05-29] MEDS: SODIUM CHLORIDE 0.9% FLUSH 5 ML FLUSH IVF SCH (09:00)
[2016-05-29] MEDS: REMOVE OLD PATCH T-DERMAL SCH (09:00)
[2016-05-29] MEDS: POLYETHYLENE GLYCOL 17 GM PKG PO SCH ×2 (09:00→21:00)
[2016-05-29] MEDS: SENNOSIDES SYRUP 8.8 MG/5 ML CUP PO/TUBE SCH ×2 (09:00→21:00)
[2016-05-29] MEDS: ARTIFICIAL TEARS OPTH OINT 3.5 APPLIC/3.5 GM TUBO EACH EYE SCH ×2 (09:00→21:25)
[2016-05-29] MEDS: BETAMETHASONE/CLOTRIMAZOLE CREAM 15 GM TOPICAL SCH ×2 (09:00→21:25)
[2016-05-29] MEDS: SILVER SULFADIAZINE 1% CR 400 GM JAR TOPICAL SCH (09:00)
[2016-05-29] MEDS: BENEPROTEIN POWDER 1 PACK G-TUBE SCH ×3 (09:00→16:53)
[2016-05-29] MEDS: NYSTATIN 100,000 U/GM PWD 15 GM BTL TOPICAL SCH ×2 (09:00→21:26)
--- NOTE | 2016-05-29 09:02 | HHI.CCPN ---
Subjective Remarks/Hospital Course Patient is a 50 years old obese male with past medical history significant for undiagnosed sleep apnea, super morbid obesity, type 2 diabetes was brought to the emergency department on 03/24/16 after feeling light headed and dizzy. On presentation here was found to be hypoxemic and ABG showed severe hypoxemia and hypercarbia. For a recent driving physical he was diagnosed with low oxygen saturations. Patient's oxygen saturation the ED was in the low 80s, which was confirmed on ABG with a oxygen saturation of 78% and PO2 of 46. CTA negative for PE. Patient was initiated on BiPAP therapy with consult to pulmonary Dr. Crane. His oxygenation improved but he continued to be hypercapnic. Today a.m. on nasal cannula his pH was 7.26 and PCO2 was increased at 99, patient was somnolent was placed back on BiPAP and repeat ABG at noon showed pH 7.26 PCO2 98 and pO2 70. This was on 16 BiPAP with FiO2 50%. Critical care was consulted. On my evaluation patient is somnolent but wakes up easily. I reduced the PEEP on BiPAP from 12-7 to facilitate better ventilation. A repeat ANG showed only minimal improvement, so decision made to intubate patient. Glidescope with #4 blade was used. Only propofol was used for induction. Initially I had a Grade 1-2 view, but I was unable to pass tube through the vocal cord to trachea in two attempts. Tube slipped out of Laryngeal opening both times. Dr Garrett intubated patient after NM paralysis with succinylcholine. Post intubation ABG showed improvement in hypercapnia and oxygenation. 03/27/16: Patient remains intubated heavily sedated with propofol and fentanyl. Remained severely hypoxemic on 100% FiO2, PEEP12, chest x-ray shows bibasilar infiltrates. Flagyl added. We'll give 1 dose of vancomycin-Adjust antibiotics according to cultures. Patient super morbid obesity may prevent Prone therapy 03/28: Remains hypoxic but ABG shows marginal improvement in oxygenation. WBC increasing 20.1 today. Start vancomycin scheduled. 03/29: Oxygenation is slightly improved. FiO2 reduced to 50% today. Chest x- ray remains unchanged. On sedation hold patient does wake up and follow commands. WBC count remains at 20 03/30 No acute events overnight. Sedated with Diprivan and Fentanyl. Had T: 100.1 at 4 am. WBC trending down 15.9 today from 20. 03/31 Patient remains sedated with Diprivan, Fentanyl and intubated. Tmax 100.1. Patient required increase O2 overnight now on ACV with PEEP: 12 and FIO2 70%. 04/01: Tmax 99.7. No bowel movement since admission. Patient has bowel sounds. Arousable on the ventilator. We'll attempt prone the patient paralyzed to increase oxygenation status. 04/02: MAXIMUM TEMPERATURE 100.9. Currently 97.7. 5 10 cc stools overnight. Placed on Roto prone yesterday. Saturations currently 94% on Flolan. Diuresed overnight. Creatinine still within normal limits. 04/03: Tmax 101. Currently 99.1. Positive BM. Did not tolerate not being unprone this AM. Saturations much improved prone. Tolerating tube feeding. 04/04: Tmax 100.8. Currently 98.8. +2 L past 24 hours. Attempt to on prone today. Positive BM. C. difficile negative. Remains paralyzed. 04/05: Remains sedated, orally intubated on neuromuscular blockade on mechanical ventilation. Remains on Rota prone bed. On insulin drip. 04/06: Remains sedated, orally intubated on neuromuscular blockade, on mechanical ventilation. Remains on Rota prone bed. Insulin drip continues. 04/07 Patient remains on Rotoprone bed sedated with Diprivan, Versed, Fentanyl in addition patient is on Nimbex. Afebrile. On Insulin drip 5u/hr. 04/08 Patient remains sedated and intubated and on Nimbex. Off insulin drip. On PRVC/AC with RR 15, TV 550, IT: 1.65, PEEP: 15 and FIO2 100%. T: 100.2 at 4 am. 04/09 Patient is sedated, intubated and remains on neuromuscular blockade. Vent setting unchanged. afebrile. 04/10 Patient remains sedated and intubated and on Nimbex. On PRVC/AC, RR 15, TV 500, PEEP: 15, FIO2 90%, IT:1.65, on Flolan drip. Remains on Rotoprone bed. 04/11 minimal improvement in oxygenation, FiO2 now at 75 - continue to improve oxygenation, worsening CXR 04/13/10 continue to improve oxygenation DC'd prone position last night 04/14- improving oxygenation, Nimbex discontinued as well as prone position 04/16 Patient is sedated with Versed and Fentanyl and intubated. Off rotoprone bed. On PRVC/AC RR 15, TV 550, IT 1.65, PEEP:15, FIO2 50%. 04/17 Patient remains sedated with Versed and Fentanyl. Afebrile, tolerating tube feeds 04/18 No acute events overnight Sedated and intubated. Afebrile. On PRVC/AC RR 15 , TV 550, IT 1.65, PEEP:15, FIO2 60% 04/19: Spiking fever up to 101, pancultured and 1 dose of vancomycin given by ID. On weaning doses of Flolan. FiO2 down to 50% I have reduced PEEP to 14. Remains critically ill 04/20: No fever. Sputum cx with Staph -S pending. Fio2 50% PEEP remains at 14. TV increased to 650 to improve lung recruitment. On weaning dose of Flolan-DC after current bag 04/21:Afebrile. Hyponatremia resolving, the patient will be placed on free water flushes. 04/22:The patient had an episode of acute desaturation requiring FiO2 increased to 90%. Stat chest x-ray stat ABG aggressive pulmonary toileting and suctioning , resolution of symptoms FiO2 now 55%. ABGs within normal limits. 04/23: Tmax 99.5. Currently afebrile. O2 sat 50%. PEEP down to 13. One small bowel movement overnight. 04/24: Currently afebrile. O2 sat 45%. PEEP to 12. One BM. Tolerating tube feeds. 04/25: Afebrile. PEEP down to 11. Positive BM. Tolerating tube feeds. Awake on the ventilator with eyes open. 04/26: Afebrile. PEEP down to 10. Time to feeding. Awake and alert eyes open. 04/27: Suspected fever overnight. One bowel movement documented. Will decreased PEEP to 9. Awake and alert and follows commands. 04/28: Tmax 99.3. Currently afebrile. FiO2 increased to 70%. PEEP to 10. Awake and does follow commands. Positive BM 4 yesterday. 04/29: FiO2 down to 55%. Peak systolic 10. Awake and does follow commands. Positive BM 1 yesterday. Tolerating tube feeding. 04/30: No acute issues overnight . The patient continues to be sedated with plans for tracheostomy in the OR today. The patient follows commands when on sedation vacation. 05/01: Postop day 1 post tracheostomy tube placement, no issues overnight. Plan for CPAP trials today. 05/02: Afebrile. The patient continues on CPAP trial 15/5 , FiO2 .45%. The patient alert and responsive this a.m., continues on Precedex and fentanyl infusion. By mouth narcotics, and fentanyl patch instituted to transition all fentanyl infusion. PEG tube placement pending. 05/03: The patient's fentanyl infusion was discontinued last evening. Multimodal analgesia initiated. Patient continues on Precedex infusion, GCS 14 T. Plans today for PEG placement later on this afternoon. No acute issues overnight. 05/04 Tmax 101.0. The patient's PICC line was removed, peripheral IVs initiated. Blood, urine and sputum cultures obtained. Methylprednisolone continues to be weaned currently at 20 mg daily. Plan for weaning of Precedex infusion off today. Seroquel 25 mg twice a day added to medication regimen. The patient continues on CPAP trials. 05/05: Tmax 99.1. Overnight the patient was maintained on CPAP trials of 15/5/40% , the patient's respiratory rate continues to be low 30s, tolerated well. The sake early this a.m. the patient was noticed to have a episode of nausea and vomiting Zofran instituted. The patient continues on scheduled Reglan TID. Blood , sputum and urine cultures were obtained yesterday secondary to elevated temperature awaiting results. 05/06: The patient remains on T piece greater than 48 hours. The patient is alert oriented and cooperative. Trach site without erythema or drainage. Patient was noticed over the last 12 hours to have multiple bowel movements or in the night. Will D/C MiraLAX, lactulose and Reglan will be discontinued. Plan for possible transfer to LTAC facility. 05/07 no acute issues overnight tolerating TPs 05/27 shortly after midnight rapid response team was called due to patient's respiratory distress and hypercarbic respiratory failure with hypoxemia and cyanosis 05/27: Tracheostomy was exchanged this morning to a #6 Shiley fenestrated cuffed. Currently on PRVC with PEEP of 10. Saturations are much improved. Awake and alert and following commands. Requesting diet. 05/28: Awake and alert. On mechanical ventilation via tracheostomy. Following commands. 05/29: Awake and alert. On mechanical ventilation via tracheostomy. Tolerating PO diet. Following commands. Objective Vital Signs Date Time Temp Pulse Resp B/P Pulse Ox O2 Delivery O2 Flow Rate FiO2 05/29/16 07:45 98 35 05/29/16 06:00 98 05/29/16 04:00 99.6 16 112/59 05/28/16 22:00 Mechanical Ventilator 05/27/16 00:40 15.00 Intake and Output 05/28/16 05/28/16 05/29/16 08:00 16:00 00:00 Intake Total 1142 ml 1383 ml 1095 ml Output Total 600 ml 475 ml 750 ml Balance 542 ml 908 ml 345 ml Result Diagram: 05/28/16 0353 05/28/16 0353 Imaging Last Impressions Chest X-Ray 05/27/16 0000 Signed Impressions: Service Date/Time: Friday, May 27, 2016 02:39 - CONCLUSION: 1. Limited study. 2. Grossly unchanged basilar consolidations. 3. Tracheostomy tube. Chano Dutta Jr., MD Liver Ultrasound 05/09/16 0000 Signed Impressions: Service Date/Time: Monday, May 09, 2016 22:28 - CONCLUSION: 1. Enlarged, fatty liver. 2. Small stones or tumefactive sludge adherent to one of the gallbladder arcos. 3. Splenomegaly. 4. Pancreas is obscured by overlying bowel gas and patient's body habitus. Arthur Kennedy MD Abdomen X-Ray 05/01/16 0000 Signed Impressions: Service Date/Time: Sunday, May 01, 2016 17:28 - CONCLUSION: No evidence of obstruction. Feeding tube overlies the distal stomach, May have to be advanced slightly to reach the duodenum. Nick Jon MD Chest CT 03/28/16 0836 Signed Impressions: Service Date/Time: Monday, March 28, 2016 09:57 - CONCLUSION: Development areas of air bronchograms and consolidation more prominent in the right and left posterior basilar segments of the lower lobes. ET tube above the chnaelle. eBrnard Hartman MD CT Angiography 03/24/16 1121 Signed Impressions: Service Date/Time: Saturday, March 24, 2016 12:47 - CONCLUSION: 1. There is respiratory motion artifact but no PE is identified through most of the segmental level pulmonary arteries. 2. Mildly enlarged main pulmonary artery may indicate pulmonary arterial hypertension. 3. 11 mm left lower lobe noncalcified pulmonary nodule. Suggest correlation with any prior imaging studies that could confirm longer-term stability. If none are available consider short-term followup noncontrast chest CT in approximately 3 months. Ubaldo Rodas MD Objective Remarks GENERAL: 50-year-old morbidly obese male, with tracheostomy, alert and oriented and interactive SKIN: Integrity intact. Warm and dry. HEAD: Atraumatic. Normocephalic. EYES: Pupils equal round and slightly reactive about 3 millimeters bilaterally. ENT: NG tube in place. Tracheostomy in situ no drainage or erythema around the site NECK: Very large neck. Trachea midline. CARDIOVASCULAR: Distant heart sounds. RRR. S1, S2. No S4. Without murmur RESPIRATORY: Status post percutaneous Tracheostomy. On mechanical ventilation, Breath sounds equal bilaterally. Diminished breath sounds due to body habitus. GASTROINTESTINAL: Abdomen soft, obese, nontender. Severe central obesity, PEG tube without erythema or drainage MUSCULOSKELETAL: Extremities with trace to 1+ nonpitting bilateral lower extremity edema. NEUROLOGICAL: Alert, Follows commands, moves extremities 4. Date of Insertion: May 03, 2016 Date of Insertion: Apr 02, 2016 Date of Removal: May 03, 2016 Line: PICC Side: Left Location: Antecubital A/P Assessment and Plan Neuro/Psych: Likely SERENITY Toxic metabolic encephalopathy-resolved Continue [place] 5/325mg every 12hrs scheduled - attempt to wean fentanyl patch 25 to 72 hours Seroquel 25mg BID initiated 05/04 Lyrica 50 mg by mouth daily for neuropathy On oxycodone 5 mg by mouth every 6 hours when necessary faint 7-10 Acetaminophen for fever Pulm: Acute hypercarbic hypoxemic respiratory failure JACOB OHS History of staph aureus pneumonia/HCAP ARDS Tracheostomy exchange to #6 Shiley fenestrated cuffed on 05/27 PRVC 16/600/0.9/8/50 Ventilator bundle Bronchial dilator therapy every 6 hours With Atrovent nebs every 2 hours when necessary dyspnea Decrease PEEP from +8 to +5 on 05/28 and if tolerated initiate C Pap trials. CV: Monitor HR and BP keep MAP>65mmHg 2-D echo 03/26 EF 60%. No regional wall motion abnormality. Mild MR/TR. /FEN: Monitor renal function, I/O's, electrolytes replacement per protocol. GI: Constipation-resolved Moderate protein calorie malnutrition Nausea and vomiting On Glucerna 1.5@45ml/hr with 1 scoop whey protein 3 times a day, no residual. Hold Glucerna S patient tolerating by mouth diet starting 05/29 Protonix 40mg daily On Reglan 10mg Q8, Senna and Colace twice a day PEG tube placement- 05/03 Zofran 4 mg every 6 hours when necessary ID: Staph aureus pneumonia Possible staph bacteremia Pertinent culture 04/27 - pansensitive staph aureus 04/27 blood cultures 2 negative 04/25 - urine -no growth 04/19 - blood cultures 2 out of 4 - staph aureus 04/19 - sputum - staph aureus 04/08 - sputum - staph aureus 04/03 - sputum - staph aureus 03/30 - sputum- -staph aureus 03/27 - sputum - staph aureus 03/26 - blood - staph hominis On vancomycin 2 g IV every 12 are since 04/19 - 04/29 Azactam 04/27 through 04/29 ID on board-Dr. Painter Heme: Leukocytosis Monitor CBC/coags Monitor WBC 10, unchanged labs every 3 days, unless clinically indicated Endo: Diabetes mellitus SSI for glycemic control with sliding scale insulin every 4 hours Levemir insulin 35 U Q12 MSK Morbid obesity Weight loss encouraged DVT, GI prophylaxis -Bilateral lower extremity SCDs. IV Protonix 40 mg daily. Lovenox 40 mg sq BID LINES: -Left upper extremity PICC line placed 04/15-05/04. Peripheral IVs x 2 Aditya Monge MD May 29, 2016 09:02
[2016-05-29] MEDS: DOCUSATE SODIUM 100 MG/10 ML UDC PO SCH ×2 (09:08→21:00)
[2016-05-29] MEDS: QUEtiapine FUMARATE 25 MG TAB PO SCH ×2 (09:08→21:26)
[2016-05-29] MEDS: PREGABALIN 25 MG CAP PO SCH (09:08)
[2016-05-29] MEDS: INSULIN DETEMIR 100 UNITS/ML VIAL SQ SCH ×2 (09:08→21:36)
[2016-05-29] MEDS: fentaNYL 25 MCG/HR PATCH TD SCH (09:10)
[2016-05-29] MEDS: LACTOBACILLUS ACIDOPHILUS TAB PO SCH ×3 (09:10→16:52)
[2016-05-29] MEDS: BACLOFEN 10 MG TAB PO SCH ×2 (09:11→21:26)
[2016-05-29] MEDS: ACETAMINOPHEN/HYDROcodone 325 MG/5 MG TAB PO SCH ×2 (09:11→21:35)
[2016-05-29] MEDS: PANTOPRAZOLE SOD 40 MG DELAYED RELEASE TAB PO SCH (09:11)
[2016-05-29] MEDS: POTASSIUM CHLORIDE 10 MEQ CONTROLLED RELEASE TAB PO SCH (09:11)
--- NOTE | 2016-05-29 16:23 | HHI.PR ---
Subjective Remarks BACK ON THE VENTILATOR ALERT RESPONDS APPROPRIATELY Objective Vital Signs Date Time Temp Pulse Resp B/P Pulse Ox O2 Delivery O2 Flow Rate FiO2 05/29/16 15:52 95 35 05/29/16 14:00 103 05/29/16 12:00 82 05/29/16 12:00 99.6 82 14 120/65 94 05/29/16 12:00 35 05/29/16 11:29 97 35 05/29/16 10:08 12 05/29/16 10:08 12 05/29/16 10:08 12 05/29/16 10:00 95 05/29/16 08:00 35 05/29/16 08:00 89 05/29/16 08:00 98.5 89 27 149/73 95 05/29/16 07:45 98 35 05/29/16 07:00 95 Mechanical Ventilator 35 05/29/16 06:00 98 05/29/16 04:18 94 35 05/29/16 04:00 102 05/29/16 04:00 35 05/29/16 04:00 99.6 102 16 112/59 98 05/29/16 02:00 92 05/29/16 01:16 35 05/29/16 01:15 99 35 05/29/16 00:00 86 05/29/16 00:00 99.9 86 17 111/60 97 05/29/16 00:00 45 05/28/16 22:09 99 45 05/28/16 22:00 45 05/28/16 22:00 96 Mechanical Ventilator 45 05/28/16 22:00 91 05/28/16 20:00 100.1 92 18 117/62 100 05/28/16 20:00 100 Mechanical Ventilator 50 05/28/16 20:00 92 05/28/16 20:00 50 05/28/16 19:23 99 50 05/28/16 18:00 103 I/O 05/28/16 05/28/16 05/28/16 05/29/16 05/29/16 05/29/16 07:00 15:00 23:00 07:00 15:00 23:00 Intake Total 1142 ml 1383 ml 1095 ml 1163 ml 480 ml Output Total 600 ml 475 ml 750 ml 950 ml 2275 ml Balance 542 ml 908 ml 345 ml 213 ml -1795 ml Intake Oral 100 ml 720 ml 480 ml IV Total 769 ml 839 ml 648 ml Tube Feeding 313 ml 344 ml 347 ml 243 ml Tube Irrigant 60 ml Other 100 ml 100 ml 200 ml Output Urine Total 600 ml 475 ml 750 ml 950 ml 2275 ml # Bowel Movements 0 2 0 0 1 Result Diagram: 05/28/1635205/28/16352 Objective Remarks GENERAL: SKIN: Warm and dry. HEAD: Atraumatic. Normocephalic. EYES: Pupils equal and round. No scleral icterus. No injection or drainage. ENT: No nasal bleeding or discharge. Mucous membranes pink and moist. NECK: Trachea midline. No JVD. CARDIOVASCULAR: Regular rate and rhythm. RESPIRATORY: No accessory muscle use. Clear to auscultation. Breath sounds equal bilaterally. GASTROINTESTINAL: Abdomen soft, non-tender, nondistended. Hepatic and splenic margins not palpable. MUSCULOSKELETAL: Extremities without clubbing, cyanosis, or edema. No obvious deformities. NEUROLOGICAL: Awake and alert. No obvious cranial nerve deficits. Motor grossly within normal limits. Five out of 5 muscle strength in the arms and legs. Normal speech. PSYCHIATRIC: Appropriate mood and affect; insight and judgment normal. Assessment and Plan Assessment and Plan now on THE VENTILATOR RESPIRATORY FAILURE SEPSIS RESOLVED ARDS JACOB/CSA S/P TRACH. PLAN PULM TOILET INCREASE Activity CONTINUE VENT SUPPORT WEAN TOLERATED Orlando Perry MD May 29, 2016 16:23
[2016-05-30] VITALS (18 sets, daily range): BP systolic 108–129; BP diastolic 61–72; PULSE 86–97; RESP 14–29; TEMP 98.7–100.7; O2SAT 92–97
[2016-05-30] MEDS: FREE WATER G-TUBE SCH ×5 (00:54→23:58)
[2016-05-30] MEDS: ARTIFICIAL TEARS OPTH SOLN 15 ML BTL EACH EYE SCH ×6 (00:55→20:26)
[2016-05-30] MEDS: RESP: ALBUTEROL 2.5 MG/IPRATROPIUM 0.5 MG NEB (SCH) NEB ×4 (03:21→20:54)
[2016-05-30] MEDS: METOCLOPRAMIDE HCL 10 MG TAB G-TUBE SCH ×3 (06:56→20:26)
[2016-05-30] MEDS: ENOXAPARIN SODIUM 40 MG/0.4 ML SYRINGE SQ SCH ×2 (06:56→17:48)
[2016-05-30] MEDS: INSULIN NovoLIN REGULAR SUPPLEMENTAL SCALE SQ SCH ×2 (07:00→15:00)
[2016-05-30] MEDS: PANTOPRAZOLE SOD 40 MG DELAYED RELEASE TAB PO SCH (08:32)
[2016-05-30] MEDS: PREGABALIN 25 MG CAP PO SCH (08:32)
[2016-05-30] MEDS: QUEtiapine FUMARATE 25 MG TAB PO SCH ×2 (08:32→20:24)
[2016-05-30] MEDS: POLYETHYLENE GLYCOL 17 GM PKG PO SCH ×2 (08:32→20:25)
[2016-05-30] MEDS: BACLOFEN 10 MG TAB PO SCH ×2 (08:32→20:24)
[2016-05-30] MEDS: DOCUSATE SODIUM 100 MG/10 ML UDC PO SCH ×2 (08:32→20:25)
[2016-05-30] MEDS: ACETAMINOPHEN/HYDROcodone 325 MG/5 MG TAB PO SCH ×2 (08:32→20:24)
[2016-05-30] MEDS: POTASSIUM CHLORIDE 10 MEQ CONTROLLED RELEASE TAB PO SCH (08:32)
[2016-05-30] MEDS: SODIUM CHLORIDE 0.9% FLUSH 5 ML FLUSH IVF SCH (08:32)
[2016-05-30] MEDS: LACTOBACILLUS ACIDOPHILUS TAB PO SCH ×3 (08:32→17:48)
[2016-05-30] MEDS: CHLORHEXIDINE 0.12% (ORAL KIT) 15 ML CUP MT SCH ×2 (08:33→20:25)
[2016-05-30] MEDS: BENEPROTEIN POWDER 1 PACK G-TUBE SCH ×3 (08:33→17:49)
[2016-05-30] MEDS: SENNOSIDES SYRUP 8.8 MG/5 ML CUP PO/TUBE SCH ×2 (08:33→20:25)
[2016-05-30] MEDS: ARTIFICIAL TEARS OPTH OINT 3.5 APPLIC/3.5 GM TUBO EACH EYE SCH ×2 (08:33→20:25)
[2016-05-30] MEDS: INSULIN DETEMIR 100 UNITS/ML VIAL SQ SCH ×2 (08:33→20:26)
[2016-05-30] MEDS: BETAMETHASONE/CLOTRIMAZOLE CREAM 15 GM TOPICAL SCH ×2 (08:33→20:26)
[2016-05-30] MEDS: NYSTATIN 100,000 U/GM PWD 15 GM BTL TOPICAL SCH ×2 (08:33→20:26)
[2016-05-30] MEDS: SILVER SULFADIAZINE 1% CR 400 GM JAR TOPICAL SCH (08:33)
--- NOTE | 2016-05-30 14:31 | HHI.CCPN ---
Subjective Remarks/Hospital Course Patient is a 50 years old obese male with past medical history significant for undiagnosed sleep apnea, super morbid obesity, type 2 diabetes was brought to the emergency department on 03/24/16 after feeling light headed and dizzy. On presentation here was found to be hypoxemic and ABG showed severe hypoxemia and hypercarbia. For a recent driving physical he was diagnosed with low oxygen saturations. Patient's oxygen saturation the ED was in the low 80s, which was confirmed on ABG with a oxygen saturation of 78% and PO2 of 46. CTA negative for PE. Patient was initiated on BiPAP therapy with consult to pulmonary Dr. Crane. His oxygenation improved but he continued to be hypercapnic. Today a.m. on nasal cannula his pH was 7.26 and PCO2 was increased at 99, patient was somnolent was placed back on BiPAP and repeat ABG at noon showed pH 7.26 PCO2 98 and pO2 70. This was on 16 BiPAP with FiO2 50%. Critical care was consulted. On my evaluation patient is somnolent but wakes up easily. I reduced the PEEP on BiPAP from 12-7 to facilitate better ventilation. A repeat ANG showed only minimal improvement, so decision made to intubate patient. Glidescope with #4 blade was used. Only propofol was used for induction. Initially I had a Grade 1-2 view, but I was unable to pass tube through the vocal cord to trachea in two attempts. Tube slipped out of Laryngeal opening both times. Dr Garrett intubated patient after NM paralysis with succinylcholine. Post intubation ABG showed improvement in hypercapnia and oxygenation. 03/27/16: Patient remains intubated heavily sedated with propofol and fentanyl. Remained severely hypoxemic on 100% FiO2, PEEP12, chest x-ray shows bibasilar infiltrates. Flagyl added. We'll give 1 dose of vancomycin-Adjust antibiotics according to cultures. Patient super morbid obesity may prevent Prone therapy 03/28: Remains hypoxic but ABG shows marginal improvement in oxygenation. WBC increasing 20.1 today. Start vancomycin scheduled. 03/29: Oxygenation is slightly improved. FiO2 reduced to 50% today. Chest x- ray remains unchanged. On sedation hold patient does wake up and follow commands. WBC count remains at 20 03/30 No acute events overnight. Sedated with Diprivan and Fentanyl. Had T: 100.1 at 4 am. WBC trending down 15.9 today from 20. 03/31 Patient remains sedated with Diprivan, Fentanyl and intubated. Tmax 100.1. Patient required increase O2 overnight now on ACV with PEEP: 12 and FIO2 70%. 04/01: Tmax 99.7. No bowel movement since admission. Patient has bowel sounds. Arousable on the ventilator. We'll attempt prone the patient paralyzed to increase oxygenation status. 04/02: MAXIMUM TEMPERATURE 100.9. Currently 97.7. 5 10 cc stools overnight. Placed on Roto prone yesterday. Saturations currently 94% on Flolan. Diuresed overnight. Creatinine still within normal limits. 04/03: Tmax 101. Currently 99.1. Positive BM. Did not tolerate not being unprone this AM. Saturations much improved prone. Tolerating tube feeding. 04/04: Tmax 100.8. Currently 98.8. +2 L past 24 hours. Attempt to on prone today. Positive BM. C. difficile negative. Remains paralyzed. 04/05: Remains sedated, orally intubated on neuromuscular blockade on mechanical ventilation. Remains on Rota prone bed. On insulin drip. 04/06: Remains sedated, orally intubated on neuromuscular blockade, on mechanical ventilation. Remains on Rota prone bed. Insulin drip continues. 04/07 Patient remains on Rotoprone bed sedated with Diprivan, Versed, Fentanyl in addition patient is on Nimbex. Afebrile. On Insulin drip 5u/hr. 04/08 Patient remains sedated and intubated and on Nimbex. Off insulin drip. On PRVC/AC with RR 15, TV 550, IT: 1.65, PEEP: 15 and FIO2 100%. T: 100.2 at 4 am. 04/09 Patient is sedated, intubated and remains on neuromuscular blockade. Vent setting unchanged. afebrile. 04/10 Patient remains sedated and intubated and on Nimbex. On PRVC/AC, RR 15, TV 500, PEEP: 15, FIO2 90%, IT:1.65, on Flolan drip. Remains on Rotoprone bed. 04/11 minimal improvement in oxygenation, FiO2 now at 75 - continue to improve oxygenation, worsening CXR 04/13/10 continue to improve oxygenation DC'd prone position last night 04/14- improving oxygenation, Nimbex discontinued as well as prone position 04/16 Patient is sedated with Versed and Fentanyl and intubated. Off rotoprone bed. On PRVC/AC RR 15, TV 550, IT 1.65, PEEP:15, FIO2 50%. 04/17 Patient remains sedated with Versed and Fentanyl. Afebrile, tolerating tube feeds 04/18 No acute events overnight Sedated and intubated. Afebrile. On PRVC/AC RR 15 , TV 550, IT 1.65, PEEP:15, FIO2 60% 04/19: Spiking fever up to 101, pancultured and 1 dose of vancomycin given by ID. On weaning doses of Flolan. FiO2 down to 50% I have reduced PEEP to 14. Remains critically ill 04/20: No fever. Sputum cx with Staph -S pending. Fio2 50% PEEP remains at 14. TV increased to 650 to improve lung recruitment. On weaning dose of Flolan-DC after current bag 04/21:Afebrile. Hyponatremia resolving, the patient will be placed on free water flushes. 04/22:The patient had an episode of acute desaturation requiring FiO2 increased to 90%. Stat chest x-ray stat ABG aggressive pulmonary toileting and suctioning , resolution of symptoms FiO2 now 55%. ABGs within normal limits. 04/23: Tmax 99.5. Currently afebrile. O2 sat 50%. PEEP down to 13. One small bowel movement overnight. 04/24: Currently afebrile. O2 sat 45%. PEEP to 12. One BM. Tolerating tube feeds. 04/25: Afebrile. PEEP down to 11. Positive BM. Tolerating tube feeds. Awake on the ventilator with eyes open. 04/26: Afebrile. PEEP down to 10. Time to feeding. Awake and alert eyes open. 04/27: Suspected fever overnight. One bowel movement documented. Will decreased PEEP to 9. Awake and alert and follows commands. 04/28: Tmax 99.3. Currently afebrile. FiO2 increased to 70%. PEEP to 10. Awake and does follow commands. Positive BM 4 yesterday. 04/29: FiO2 down to 55%. Peak systolic 10. Awake and does follow commands. Positive BM 1 yesterday. Tolerating tube feeding. 04/30: No acute issues overnight . The patient continues to be sedated with plans for tracheostomy in the OR today. The patient follows commands when on sedation vacation. 05/01: Postop day 1 post tracheostomy tube placement, no issues overnight. Plan for CPAP trials today. 05/02: Afebrile. The patient continues on CPAP trial 15/5 , FiO2 .45%. The patient alert and responsive this a.m., continues on Precedex and fentanyl infusion. By mouth narcotics, and fentanyl patch instituted to transition all fentanyl infusion. PEG tube placement pending. 05/03: The patient's fentanyl infusion was discontinued last evening. Multimodal analgesia initiated. Patient continues on Precedex infusion, GCS 14 T. Plans today for PEG placement later on this afternoon. No acute issues overnight. 05/04 Tmax 101.0. The patient's PICC line was removed, peripheral IVs initiated. Blood, urine and sputum cultures obtained. Methylprednisolone continues to be weaned currently at 20 mg daily. Plan for weaning of Precedex infusion off today. Seroquel 25 mg twice a day added to medication regimen. The patient continues on CPAP trials. 05/05: Tmax 99.1. Overnight the patient was maintained on CPAP trials of 15/5/40% , the patient's respiratory rate continues to be low 30s, tolerated well. The sake early this a.m. the patient was noticed to have a episode of nausea and vomiting Zofran instituted. The patient continues on scheduled Reglan TID. Blood , sputum and urine cultures were obtained yesterday secondary to elevated temperature awaiting results. 05/06: The patient remains on T piece greater than 48 hours. The patient is alert oriented and cooperative. Trach site without erythema or drainage. Patient was noticed over the last 12 hours to have multiple bowel movements or in the night. Will D/C MiraLAX, lactulose and Reglan will be discontinued. Plan for possible transfer to LTAC facility. 05/07 no acute issues overnight tolerating TPs 05/27 shortly after midnight rapid response team was called due to patient's respiratory distress and hypercarbic respiratory failure with hypoxemia and cyanosis 05/27: Tracheostomy was exchanged this morning to a #6 Shiley fenestrated cuffed. Currently on PRVC with PEEP of 10. Saturations are much improved. Awake and alert and following commands. Requesting diet. 05/28: Awake and alert. On mechanical ventilation via tracheostomy. Following commands. 05/29: Awake and alert. On mechanical ventilation via tracheostomy. Tolerating PO diet. Following commands. 05/30: Awake and alert. On mechanical ventilation via tracheostomy. Tolerating by mouth diet. Following commands. Objective Vital Signs Date Time Temp Pulse Resp B/P Pulse Ox O2 Delivery O2 Flow Rate FiO2 05/30/16 14:00 91 05/30/16 12:00 98.7 26 124/64 93 05/30/16 12:00 30 05/30/16 07:00 Mechanical Ventilator 05/27/16 00:40 15.00 Intake and Output 05/29/16 05/29/16 05/30/16 08:00 16:00 00:00 Intake Total 1163 ml 934 ml 1376 ml Output Total 950 ml 2275 ml 750 ml Balance 213 ml -1341 ml 626 ml Result Diagram: 05/28/16 0353 05/28/16 0353 Other Results Microbiology Date/Time Procedure Status Source Growth 05/27/16 21:19 Gram Stain - Final Complete Sputum Endotracheal 05/27/16 21:19 Sputum Culture - Final Complete Staphylococcus Aureus Imaging Last Impressions Chest X-Ray 05/27/16 0000 Signed Impressions: Service Date/Time: Friday, May 27, 2016 02:39 - CONCLUSION: 1. Limited study. 2. Grossly unchanged basilar consolidations. 3. Tracheostomy tube. Chano Dutta Jr., MD Liver Ultrasound 05/09/16 0000 Signed Impressions: Service Date/Time: Monday, May 09, 2016 22:28 - CONCLUSION: 1. Enlarged, fatty liver. 2. Small stones or tumefactive sludge adherent to one of the gallbladder arcos. 3. Splenomegaly. 4. Pancreas is obscured by overlying bowel gas and patient's body habitus. Arthur Kennedy MD Abdomen X-Ray 05/01/16 0000 Signed Impressions: Service Date/Time: Sunday, May 01, 2016 17:28 - CONCLUSION: No evidence of obstruction. Feeding tube overlies the distal stomach, May have to be advanced slightly to reach the duodenum. Nick Jon MD Chest CT 03/28/16 0836 Signed Impressions: Service Date/Time: Monday, March 28, 2016 09:57 - CONCLUSION: Development areas of air bronchograms and consolidation more prominent in the right and left posterior basilar segments of the lower lobes. ET tube above the chanelle. Bernard Hartman MD CT Angiography 03/24/16 1121 Signed Impressions: Service Date/Time: Thursday, March 24, 2016 12:47 - CONCLUSION: 1. There is respiratory motion artifact but no PE is identified through most of the segmental level pulmonary arteries. 2. Mildly enlarged main pulmonary artery may indicate pulmonary arterial hypertension. 3. 11 mm left lower lobe noncalcified pulmonary nodule. Suggest correlation with any prior imaging studies that could confirm longer-term stability. If none are available consider short-term followup noncontrast chest CT in approximately 3 months. Ubaldo Rodas MD Objective Remarks GENERAL: 50-year-old morbidly obese male, with tracheostomy, alert and oriented and interactive SKIN: Integrity intact. Warm and dry. HEAD: Atraumatic. Normocephalic. EYES: Pupils equal round and slightly reactive about 3 millimeters bilaterally. ENT: NG tube in place. Tracheostomy in situ no drainage or erythema around the site NECK: Very large neck. Trachea midline. CARDIOVASCULAR: Distant heart sounds. RRR. S1, S2. No S4. Without murmur RESPIRATORY: Status post percutaneous Tracheostomy. On mechanical ventilation, Breath sounds equal bilaterally. Diminished breath sounds due to body habitus. GASTROINTESTINAL: Abdomen soft, obese, nontender. Severe central obesity, PEG tube without erythema or drainage MUSCULOSKELETAL: Extremities with trace to 1+ nonpitting bilateral lower extremity edema. NEUROLOGICAL: Alert, Follows commands, moves extremities 4. Date of Insertion: May 03, 2016 Date of Insertion: Apr 02, 2016 Date of Removal: May 03, 2016 Line: PICC Side: Left Location: Antecubital A/P Assessment and Plan Neuro/Psych: Likely SERENITY Toxic metabolic encephalopathy-resolved Continue Allison 5/325mg every 12hrs scheduled - attempt to wean fentanyl patch 25 to 72 hours Seroquel 25mg BID initiated 05/04 Lyrica 50 mg by mouth daily for neuropathy On oxycodone 5 mg by mouth every 6 hours when necessary faint 7-10 Acetaminophen for fever Pulm: Acute hypercarbic hypoxemic respiratory failure JACOB OHS History of staph aureus pneumonia/HCAP ARDS Tracheostomy exchange to #6 Shiley fenestrated cuffed on 05/27 PRVC 16/600/0.9/8/40 Ventilator bundle Bronchial dilator therapy every 6 hours With Atrovent nebs every 2 hours when necessary dyspnea PEEP+8, Daily C Pap trials. CV: Monitor HR and BP keep MAP>65mmHg 2-D echo 03/26 EF 60%. No regional wall motion abnormality. Mild MR/TR. /FEN: Monitor renal function, I/O's, electrolytes replacement per protocol. GI: Constipation-resolved Moderate protein calorie malnutrition Nausea and vomiting On Glucerna 1.5@45ml/hr with 1 scoop whey protein 3 times a day, no residual. Hold Glucerna as patient tolerating by mouth diet starting 05/29 Protonix 40mg daily On Reglan 10mg Q8, Senna and Colace twice a day PEG tube placement- 05/03 Zofran 4 mg every 6 hours when necessary ID: Staph aureus pneumonia Possible staph bacteremia Pertinent culture 04/27 - pansensitive staph aureus 04/27 blood cultures 2 negative 04/25 - urine -no growth 04/19 - blood cultures 2 out of 4 - staph aureus 04/19 - sputum - staph aureus 04/08 - sputum - staph aureus 04/03 - sputum - staph aureus 03/30 - sputum- -staph aureus 03/27 - sputum - staph aureus 03/26 - blood - staph hominis On vancomycin 2 g IV every 12 are since 04/19 - 04/29 Azactam 04/27 through 04/29 ID on board-Dr. Painter Heme: Leukocytosis Monitor CBC/coags Monitor WBC 10, unchanged labs every 3 days, unless clinically indicated Endo: Diabetes mellitus SSI for glycemic control with sliding scale insulin every 4 hours Levemir insulin 35 U Q12 MSK Morbid obesity Weight loss encouraged DVT, GI prophylaxis -Bilateral lower extremity SCDs. IV Protonix 40 mg daily. Lovenox 40 mg sq BID LINES: -Left upper extremity PICC line placed 04/15-05/04. Peripheral IVs x 2 Aditya Monge MD May 30, 2016 14:31
--- NOTE | 2016-05-30 17:31 | HHI.PR ---
Subjective Remarks BACK ON THE VENTILATOR ALERT RESPONDS APPROPRIATELY Objective Vital Signs Date Time Temp Pulse Resp B/P Pulse Ox O2 Delivery O2 Flow Rate FiO2 05/30/16 16:28 92 30 05/30/16 16:00 91 05/30/16 16:00 99.1 90 26 129/72 92 05/30/16 16:00 30 05/30/16 14:00 91 05/30/16 12:00 95 05/30/16 12:00 98.7 88 26 124/64 93 05/30/16 12:00 30 05/30/16 11:04 92 30 05/30/16 10:00 97 05/30/16 08:00 30 05/30/16 08:00 99.3 90 26 123/62 94 05/30/16 08:00 96 05/30/16 07:35 94 30 05/30/16 07:30 30 05/30/16 07:00 93 Mechanical Ventilator 30 05/30/16 06:00 86 05/30/16 04:20 94 30 05/30/16 04:00 30 05/30/16 04:00 96 05/30/16 04:00 98.7 92 14 119/61 93 05/30/16 02:00 95 05/30/16 01:26 92 30 05/30/16 00:00 99.5 92 22 116/63 92 05/30/16 00:00 92 05/30/16 00:00 30 05/29/16 22:35 12 05/29/16 22:00 90 05/29/16 20:00 99 05/29/16 20:00 99.4 99 18 122/70 94 05/29/16 20:00 35 05/29/16 19:57 95 35 05/29/16 19:00 94 Mechanical Ventilator 35 05/29/16 18:00 96 I/O 05/29/16 05/29/16 05/29/16 05/30/16 05/30/16 05/30/16 07:00 15:00 23:00 07:00 15:00 23:00 Intake Total 1163 ml 934 ml 1376 ml 805 ml 796 ml Output Total 950 ml 2275 ml 750 ml 750 ml 1200 ml Balance 213 ml -1341 ml 626 ml 55 ml -404 ml Intake Oral 720 ml 480 ml 960 ml 480 ml 400 ml Tube Feeding 243 ml 454 ml 296 ml 205 ml 296 ml Other 200 ml 120 ml 120 ml 100 ml Output Urine Total 950 ml 2275 ml 750 ml 750 ml 1200 ml # Bowel Movements 0 1 1 1 0 Result Diagram: 05/28/1635205/28/16352 Objective Remarks GENERAL: SKIN: Warm and dry. HEAD: Atraumatic. Normocephalic. EYES: Pupils equal and round. No scleral icterus. No injection or drainage. ENT: No nasal bleeding or discharge. Mucous membranes pink and moist. NECK: Trachea midline. No JVD. CARDIOVASCULAR: Regular rate and rhythm. RESPIRATORY: No accessory muscle use. Clear to auscultation. Breath sounds equal bilaterally. GASTROINTESTINAL: Abdomen soft, non-tender, nondistended. Hepatic and splenic margins not palpable. MUSCULOSKELETAL: Extremities without clubbing, cyanosis, or edema. No obvious deformities. NEUROLOGICAL: Awake and alert. No obvious cranial nerve deficits. Motor grossly within normal limits. Five out of 5 muscle strength in the arms and legs. Normal speech. PSYCHIATRIC: Appropriate mood and affect; insight and judgment normal. Assessment and Plan Assessment and Plan now on THE VENTILATOR RESPIRATORY FAILURE SEPSIS RESOLVED ARDS JACOB/CSA S/P TRACH. PLAN PULM TOILET INCREASE Activity CONTINUE VENT SUPPORT WEAN TOLERATED Orlando Perry MD May 30, 2016 17:31
[2016-05-31] VITALS (19 sets, daily range): BP systolic 110–117; BP diastolic 55–67; PULSE 83–109; RESP 12–29; TEMP 98.5–100.1; O2SAT 93–100
[2016-05-31] MEDS: ARTIFICIAL TEARS OPTH SOLN 15 ML BTL EACH EYE SCH ×6 (02:18→22:00)
[2016-05-31] MEDS: RESP: ALBUTEROL 2.5 MG/IPRATROPIUM 0.5 MG NEB (SCH) NEB ×2 (03:27→07:29)
[2016-05-31] MEDS: METOCLOPRAMIDE HCL 10 MG TAB G-TUBE SCH ×3 (06:00→22:30)
[2016-05-31] MEDS: INSULIN NovoLIN REGULAR SUPPLEMENTAL SCALE SQ SCH ×2 (06:55→14:45)
[2016-05-31] MEDS: FREE WATER G-TUBE SCH ×3 (06:55→17:43)
[2016-05-31] MEDS: ENOXAPARIN SODIUM 40 MG/0.4 ML SYRINGE SQ SCH ×2 (06:55→17:43)
[2016-05-31] MEDS: SENNOSIDES SYRUP 8.8 MG/5 ML CUP PO/TUBE SCH ×2 (08:28→20:39)
[2016-05-31] MEDS: DOCUSATE SODIUM 100 MG/10 ML UDC PO SCH ×2 (08:28→20:39)
[2016-05-31] MEDS: POLYETHYLENE GLYCOL 17 GM PKG PO SCH ×2 (08:28→20:39)
[2016-05-31] MEDS: LACTOBACILLUS ACIDOPHILUS TAB PO SCH ×3 (08:29→17:43)
[2016-05-31] MEDS: ACETAMINOPHEN/HYDROcodone 325 MG/5 MG TAB PO SCH ×2 (08:29→20:40)
[2016-05-31] MEDS: BACLOFEN 10 MG TAB PO SCH ×2 (08:29→20:40)
[2016-05-31] MEDS: PREGABALIN 25 MG CAP PO SCH (08:29)
[2016-05-31] MEDS: POTASSIUM CHLORIDE 10 MEQ CONTROLLED RELEASE TAB PO SCH (08:29)
[2016-05-31] MEDS: PANTOPRAZOLE SOD 40 MG DELAYED RELEASE TAB PO SCH (08:29)
[2016-05-31] MEDS: QUEtiapine FUMARATE 25 MG TAB PO SCH ×2 (08:29→20:40)
[2016-05-31] MEDS: ARTIFICIAL TEARS OPTH OINT 3.5 APPLIC/3.5 GM TUBO EACH EYE SCH ×2 (08:30→20:39)
[2016-05-31] MEDS: INSULIN DETEMIR 100 UNITS/ML VIAL SQ SCH ×2 (08:30→21:00)
[2016-05-31] MEDS: SODIUM CHLORIDE 0.9% FLUSH 5 ML FLUSH IVF SCH (08:30)
[2016-05-31] MEDS: CHLORHEXIDINE 0.12% (ORAL KIT) 15 ML CUP MT SCH ×2 (08:30→20:00)
[2016-05-31] MEDS: BENEPROTEIN POWDER 1 PACK G-TUBE SCH ×3 (08:30→17:44)
[2016-05-31] MEDS: NYSTATIN 100,000 U/GM PWD 15 GM BTL TOPICAL SCH ×2 (08:31→20:49)
[2016-05-31] MEDS: SILVER SULFADIAZINE 1% CR 400 GM JAR TOPICAL SCH (08:31)
[2016-05-31] MEDS: BETAMETHASONE/CLOTRIMAZOLE CREAM 15 GM TOPICAL SCH ×2 (08:31→20:49)
--- NOTE | 2016-05-31 16:46 | HHI.PR ---
Subjective Remarks BACK ON THE VENTILATOR ALERT RESPONDS APPROPRIATELY Objective Vital Signs Date Time Temp Pulse Resp B/P Pulse Ox O2 Delivery O2 Flow Rate FiO2 05/31/16 16:00 98.5 109 29 111/65 94 05/31/16 16:00 99 05/31/16 16:00 30 05/31/16 15:54 97 30 05/31/16 14:00 30 05/31/16 14:00 97 05/31/16 12:32 98 30 05/31/16 12:25 30 05/31/16 12:00 98.5 85 29 111/55 97 05/31/16 12:00 30 05/31/16 12:00 85 05/31/16 10:00 89 05/31/16 08:00 30 05/31/16 08:00 98.9 98 12 117/66 99 05/31/16 08:00 98 05/31/16 07:30 30 05/31/16 07:30 30 05/31/16 07:29 94 30 05/31/16 07:00 96 Mechanical Ventilator 30 05/31/16 06:00 83 05/31/16 04:00 30 05/31/16 04:00 99.2 89 12 110/61 96 05/31/16 04:00 89 05/31/16 03:28 93 30 05/31/16 02:00 85 05/31/16 01:32 96 30 05/31/16 00:00 30 05/31/16 00:00 87 05/31/16 00:00 99.6 87 16 113/67 100 05/30/16 22:00 94 05/30/16 21:24 13 05/30/16 20:54 94 30 05/30/16 20:00 30 05/30/16 20:00 100.7 91 29 108/63 97 05/30/16 20:00 91 05/30/16 19:00 96 Mechanical Ventilator 30 05/30/16 18:00 92 I/O 05/30/16 05/30/16 05/30/16 05/31/16 05/31/16 05/31/16 07:00 15:00 23:00 07:00 15:00 23:00 Intake Total 805 ml 796 ml 927 ml 920 ml 480 ml Output Total 750 ml 1200 ml 575 ml 1275 ml 1700 ml Balance 55 ml -404 ml 352 ml -355 ml -1220 ml Intake Oral 480 ml 400 ml 707 ml 720 ml 480 ml Tube Feeding 205 ml 296 ml 0 ml 0 ml Other 120 ml 100 ml 220 ml 200 ml Output Urine Total 750 ml 1200 ml 575 ml 1275 ml 1700 ml # Voids 1 # Bowel Movements 1 0 1 1 Result Diagram: 05/28/163 05/28/163 Objective Remarks GENERAL: SKIN: Warm and dry. HEAD: Atraumatic. Normocephalic. EYES: Pupils equal and round. No scleral icterus. No injection or drainage. ENT: No nasal bleeding or discharge. Mucous membranes pink and moist. NECK: Trachea midline. No JVD. CARDIOVASCULAR: Regular rate and rhythm. RESPIRATORY: No accessory muscle use. Clear to auscultation. Breath sounds equal bilaterally. GASTROINTESTINAL: Abdomen soft, non-tender, nondistended. Hepatic and splenic margins not palpable. MUSCULOSKELETAL: Extremities without clubbing, cyanosis, or edema. No obvious deformities. NEUROLOGICAL: Awake and alert. No obvious cranial nerve deficits. Motor grossly within normal limits. Five out of 5 muscle strength in the arms and legs. Normal speech. PSYCHIATRIC: Appropriate mood and affect; insight and judgment normal. Assessment and Plan Assessment and Plan now on THE VENTILATOR RESPIRATORY FAILURE SEPSIS RESOLVED ARDS JACOB/CSA S/P TRACH. PLAN PULM TOILET INCREASE Activity CONTINUE VENT SUPPORT WEAN TOLERATED Orlando Perry MD May 31, 2016 16:46
[2016-05-31] MEDS ORDERED: GLUCAGON 1 MG/ML VIAL OTHER PRN (22:00)
[2016-05-31] MEDS ORDERED: DEXTROSE 50% IN WATER 50 ML VIAL(D50) IV PUSH PRN (22:00)
[2016-06-01] VITALS (18 sets, daily range): BP systolic 104–116; BP diastolic 58–69; PULSE 82–105; RESP 13–30; TEMP 99–99.5; O2SAT 92–98
[2016-06-01] MEDS: ARTIFICIAL TEARS OPTH SOLN 15 ML BTL EACH EYE SCH ×6 (01:05→21:51)
[2016-06-01 05:21] LABS: AUTOMATED NEUTROPHIL # 14.8 TH/MM3 (1.8-7.7); BASOPHIL # 0.1 TH/MM3 (0-0.2); BASOPHIL % 0.5 % (0.0-2.0); EOSINOPHIL # 0.3 TH/MM3 (0-0.4); EOSINOPHIL % 1.6 % (0.0-4.0); HEMATOCRIT 32.7 % (39.0-51.0); LYMPH % 12.8 % (9.0-44.0); LYMPHOCYTE # 2.4 TH/MM3 (1.0-4.8); MEAN CELL VOLUME 84.1 FL (80.0-100.0); MEAN CORPUSCULAR HEMOGLOBIN 27.8 PG (27.0-34.0); MONO % 5.2 % (0.0-8.0); NEUT % 79.9 % (16.0-70.0); PLATELET COUNT 413 TH/MM3 (150-450); RED BLOOD COUNT 3.89 MIL/MM3 (4.50-5.90); RED CELL DISTRIBUTION WIDTH 18.9 % (11.6-17.2); WHITE BLOOD COUNT 18.5 TH/MM3 (4.0-11.0)
[2016-06-01 05:24] LABS: HEMO FLAGS AUTO DIFF
[2016-06-01 05:25] LABS: ALT (GPT) 43 U/L (12-78); ANION GAP 7 MEQ/L (5-15); AST (GOT) 24 U/L (15-37); BICARBONATE 28.8 MEQ/L (21.0-32.0); BLOOD UREA NITROGEN 5 MG/DL (7-18); CHLORIDE 100 MEQ/L (98-107); GLOMERULAR FILTRATION RATE 249 ML/MIN (>89); MAGNESIUM 1.9 MG/DL (1.5-2.5); POTASSIUM 3.6 MEQ/L (3.5-5.1); SODIUM (NA) 136 MEQ/L (136-145)
[2016-06-01 05:27] LABS: ALKALINE PHOSPHATASE 70 U/L (45-117); TOTAL BILIRUBIN ADULT 0.5 MG/DL (0.2-1.0)
[2016-06-01] MEDS: FREE WATER G-TUBE SCH ×4 (06:00→18:00)
[2016-06-01] MEDS: ENOXAPARIN SODIUM 40 MG/0.4 ML SYRINGE SQ SCH ×2 (06:30→18:03)
[2016-06-01] MEDS: METOCLOPRAMIDE HCL 10 MG TAB G-TUBE SCH ×3 (06:30→21:50)
[2016-06-01] MEDS: INSULIN ASPART SUPPLEMENTAL SCALE SQ SCH ×4 (06:31→21:00)
[2016-06-01 07:30] LABS: BANDS 2 % (0-6); EOSINOPHILS 2 % (0-4); MYELOCYTES 5 % (0-0); NEUTROPHIL # MANUAL DIFF 15.2 TH/MM3 (1.8-7.7); PLATELET ESTIMATE SMEAR NORMAL (NORMAL); PLATELET MORPHOLOGY NORMAL (NORMAL); POLYS (SEG NEUTROPHILS) 75 % (16-70); SCAN/DIFF FINAL DIFF MANUAL; WBC DIFF SAMPLE 100
[2016-06-01] MEDS: PANTOPRAZOLE SOD 40 MG DELAYED RELEASE TAB PO SCH (07:53)
[2016-06-01] MEDS: POTASSIUM CHLORIDE 10 MEQ CONTROLLED RELEASE TAB PO SCH (07:53)
[2016-06-01] MEDS: BACLOFEN 10 MG TAB PO SCH ×2 (07:53→21:50)
[2016-06-01] MEDS: QUEtiapine FUMARATE 25 MG TAB PO SCH ×2 (07:53→21:50)
[2016-06-01] MEDS: PREGABALIN 25 MG CAP PO SCH (07:53)
[2016-06-01] MEDS: ACETAMINOPHEN/HYDROcodone 325 MG/5 MG TAB PO SCH ×2 (07:54→21:50)
[2016-06-01] MEDS: fentaNYL 25 MCG/HR PATCH TD SCH (07:54)
[2016-06-01] MEDS: REMOVE OLD PATCH T-DERMAL SCH (07:54)
[2016-06-01] MEDS: BETAMETHASONE/CLOTRIMAZOLE CREAM 15 GM TOPICAL SCH ×2 (07:54→21:00)
[2016-06-01] MEDS: NYSTATIN 100,000 U/GM PWD 15 GM BTL TOPICAL SCH ×2 (07:55→21:00)
[2016-06-01] MEDS: SILVER SULFADIAZINE 1% CR 400 GM JAR TOPICAL SCH (07:55)
[2016-06-01] MEDS: ARTIFICIAL TEARS OPTH OINT 3.5 APPLIC/3.5 GM TUBO EACH EYE SCH ×2 (07:56→21:00)
[2016-06-01] MEDS: SODIUM CHLORIDE 0.9% FLUSH 5 ML FLUSH IVF SCH (07:56)
[2016-06-01] MEDS: CHLORHEXIDINE 0.12% (ORAL KIT) 15 ML CUP MT SCH ×2 (07:56→20:00)
[2016-06-01] MEDS: DOCUSATE SODIUM 100 MG/10 ML UDC PO SCH ×2 (07:56→21:51)
[2016-06-01] MEDS: BENEPROTEIN POWDER 1 PACK G-TUBE SCH ×3 (07:56→18:04)
[2016-06-01] MEDS: POLYETHYLENE GLYCOL 17 GM PKG PO SCH ×2 (07:57→21:00)
[2016-06-01] MEDS: LACTOBACILLUS ACIDOPHILUS TAB PO SCH ×3 (07:57→18:04)
[2016-06-01] MEDS: SENNOSIDES SYRUP 8.8 MG/5 ML CUP PO/TUBE SCH ×2 (07:57→21:50)
--- NOTE | 2016-06-01 10:49 | HHI.CCPN ---
Subjective Remarks/Hospital Course Patient is a 50 years old obese male with past medical history significant for undiagnosed sleep apnea, super morbid obesity, type 2 diabetes was brought to the emergency department on 03/24/16 after feeling light headed and dizzy. On presentation here was found to be hypoxemic and ABG showed severe hypoxemia and hypercarbia. For a recent driving physical he was diagnosed with low oxygen saturations. Patient's oxygen saturation the ED was in the low 80s, which was confirmed on ABG with a oxygen saturation of 78% and PO2 of 46. CTA negative for PE. Patient was initiated on BiPAP therapy with consult to pulmonary Dr. Crane. His oxygenation improved but he continued to be hypercapnic. Today a.m. on nasal cannula his pH was 7.26 and PCO2 was increased at 99, patient was somnolent was placed back on BiPAP and repeat ABG at noon showed pH 7.26 PCO2 98 and pO2 70. This was on 16 BiPAP with FiO2 50%. Critical care was consulted. On my evaluation patient is somnolent but wakes up easily. I reduced the PEEP on BiPAP from 12-7 to facilitate better ventilation. A repeat ANG showed only minimal improvement, so decision made to intubate patient. Glidescope with #4 blade was used. Only propofol was used for induction. Initially I had a Grade 1-2 view, but I was unable to pass tube through the vocal cord to trachea in two attempts. Tube slipped out of Laryngeal opening both times. Dr Garrett intubated patient after NM paralysis with succinylcholine. Post intubation ABG showed improvement in hypercapnia and oxygenation. 03/27/16: Patient remains intubated heavily sedated with propofol and fentanyl. Remained severely hypoxemic on 100% FiO2, PEEP12, chest x-ray shows bibasilar infiltrates. Flagyl added. We'll give 1 dose of vancomycin-Adjust antibiotics according to cultures. Patient super morbid obesity may prevent Prone therapy 03/28: Remains hypoxic but ABG shows marginal improvement in oxygenation. WBC increasing 20.1 today. Start vancomycin scheduled. 03/29: Oxygenation is slightly improved. FiO2 reduced to 50% today. Chest x- ray remains unchanged. On sedation hold patient does wake up and follow commands. WBC count remains at 20 03/30 No acute events overnight. Sedated with Diprivan and Fentanyl. Had T: 100.1 at 4 am. WBC trending down 15.9 today from 20. 03/31 Patient remains sedated with Diprivan, Fentanyl and intubated. Tmax 100.1. Patient required increase O2 overnight now on ACV with PEEP: 12 and FIO2 70%. 04/01: Tmax 99.7. No bowel movement since admission. Patient has bowel sounds. Arousable on the ventilator. We'll attempt prone the patient paralyzed to increase oxygenation status. 04/02: MAXIMUM TEMPERATURE 100.9. Currently 97.7. 5 10 cc stools overnight. Placed on Roto prone yesterday. Saturations currently 94% on Flolan. Diuresed overnight. Creatinine still within normal limits. 04/03: Tmax 101. Currently 99.1. Positive BM. Did not tolerate not being unprone this AM. Saturations much improved prone. Tolerating tube feeding. 04/04: Tmax 100.8. Currently 98.8. +2 L past 24 hours. Attempt to on prone today. Positive BM. C. difficile negative. Remains paralyzed. 04/05: Remains sedated, orally intubated on neuromuscular blockade on mechanical ventilation. Remains on Rota prone bed. On insulin drip. 04/06: Remains sedated, orally intubated on neuromuscular blockade, on mechanical ventilation. Remains on Rota prone bed. Insulin drip continues. 04/07 Patient remains on Rotoprone bed sedated with Diprivan, Versed, Fentanyl in addition patient is on Nimbex. Afebrile. On Insulin drip 5u/hr. 04/08 Patient remains sedated and intubated and on Nimbex. Off insulin drip. On PRVC/AC with RR 15, TV 550, IT: 1.65, PEEP: 15 and FIO2 100%. T: 100.2 at 4 am. 04/09 Patient is sedated, intubated and remains on neuromuscular blockade. Vent setting unchanged. afebrile. 04/10 Patient remains sedated and intubated and on Nimbex. On PRVC/AC, RR 15, TV 500, PEEP: 15, FIO2 90%, IT:1.65, on Flolan drip. Remains on Rotoprone bed. 04/11 minimal improvement in oxygenation, FiO2 now at 75 - continue to improve oxygenation, worsening CXR 04/13/10 continue to improve oxygenation DC'd prone position last night 04/14- improving oxygenation, Nimbex discontinued as well as prone position 04/16 Patient is sedated with Versed and Fentanyl and intubated. Off rotoprone bed. On PRVC/AC RR 15, TV 550, IT 1.65, PEEP:15, FIO2 50%. 04/17 Patient remains sedated with Versed and Fentanyl. Afebrile, tolerating tube feeds 04/18 No acute events overnight Sedated and intubated. Afebrile. On PRVC/AC RR 15 , TV 550, IT 1.65, PEEP:15, FIO2 60% 04/19: Spiking fever up to 101, pancultured and 1 dose of vancomycin given by ID. On weaning doses of Flolan. FiO2 down to 50% I have reduced PEEP to 14. Remains critically ill 04/20: No fever. Sputum cx with Staph -S pending. Fio2 50% PEEP remains at 14. TV increased to 650 to improve lung recruitment. On weaning dose of Flolan-DC after current bag 04/21:Afebrile. Hyponatremia resolving, the patient will be placed on free water flushes. 04/22:The patient had an episode of acute desaturation requiring FiO2 increased to 90%. Stat chest x-ray stat ABG aggressive pulmonary toileting and suctioning , resolution of symptoms FiO2 now 55%. ABGs within normal limits. 04/23: Tmax 99.5. Currently afebrile. O2 sat 50%. PEEP down to 13. One small bowel movement overnight. 04/24: Currently afebrile. O2 sat 45%. PEEP to 12. One BM. Tolerating tube feeds. 04/25: Afebrile. PEEP down to 11. Positive BM. Tolerating tube feeds. Awake on the ventilator with eyes open. 04/26: Afebrile. PEEP down to 10. Time to feeding. Awake and alert eyes open. 04/27: Suspected fever overnight. One bowel movement documented. Will decreased PEEP to 9. Awake and alert and follows commands. 04/28: Tmax 99.3. Currently afebrile. FiO2 increased to 70%. PEEP to 10. Awake and does follow commands. Positive BM 4 yesterday. 04/29: FiO2 down to 55%. Peak systolic 10. Awake and does follow commands. Positive BM 1 yesterday. Tolerating tube feeding. 04/30: No acute issues overnight . The patient continues to be sedated with plans for tracheostomy in the OR today. The patient follows commands when on sedation vacation. 05/01: Postop day 1 post tracheostomy tube placement, no issues overnight. Plan for CPAP trials today. 05/02: Afebrile. The patient continues on CPAP trial 15/5 , FiO2 .45%. The patient alert and responsive this a.m., continues on Precedex and fentanyl infusion. By mouth narcotics, and fentanyl patch instituted to transition all fentanyl infusion. PEG tube placement pending. 05/03: The patient's fentanyl infusion was discontinued last evening. Multimodal analgesia initiated. Patient continues on Precedex infusion, GCS 14 T. Plans today for PEG placement later on this afternoon. No acute issues overnight. 05/04 Tmax 101.0. The patient's PICC line was removed, peripheral IVs initiated. Blood, urine and sputum cultures obtained. Methylprednisolone continues to be weaned currently at 20 mg daily. Plan for weaning of Precedex infusion off today. Seroquel 25 mg twice a day added to medication regimen. The patient continues on CPAP trials. 05/05: Tmax 99.1. Overnight the patient was maintained on CPAP trials of 15/5/40% , the patient's respiratory rate continues to be low 30s, tolerated well. The sake early this a.m. the patient was noticed to have a episode of nausea and vomiting Zofran instituted. The patient continues on scheduled Reglan TID. Blood , sputum and urine cultures were obtained yesterday secondary to elevated temperature awaiting results. 05/06: The patient remains on T piece greater than 48 hours. The patient is alert oriented and cooperative. Trach site without erythema or drainage. Patient was noticed over the last 12 hours to have multiple bowel movements or in the night. Will D/C MiraLAX, lactulose and Reglan will be discontinued. Plan for possible transfer to LTAC facility. 05/07 no acute issues overnight tolerating TPs 05/27 shortly after midnight rapid response team was called due to patient's respiratory distress and hypercarbic respiratory failure with hypoxemia and cyanosis 05/27: Tracheostomy was exchanged this morning to a #6 Shiley fenestrated cuffed. Currently on PRVC with PEEP of 10. Saturations are much improved. Awake and alert and following commands. Requesting diet. 05/28: Awake and alert. On mechanical ventilation via tracheostomy. Following commands. 05/29: Awake and alert. On mechanical ventilation via tracheostomy. Tolerating PO diet. Following commands. 05/30: Awake and alert. On mechanical ventilation via tracheostomy. Tolerating by mouth diet. Following commands. 05/31: Remains on mechanical ventilation via tracheostomy. Tolerating C Pap/ pressure support. Following commands. Tolerating by mouth diet. 06/01: Remains on mechanical ventilation via tracheostomy. Awake and alert. Tolerated C Pap and pressure support however gets extremely tachypneic on dropping pressure-support to +5. Tolerating by mouth diet Objective Vital Signs Date Time Temp Pulse Resp B/P Pulse Ox O2 Delivery O2 Flow Rate FiO2 06/01/16 10:00 91 06/01/16 09:50 40 06/01/16 09:50 92 06/01/16 08:30 30 06/01/16 08:00 99.0 111/62 06/01/16 07:00 Mechanical Ventilator Intake and Output 05/31/16 05/31/16 06/01/16 08:00 16:00 00:00 Intake Total 920 ml 480 ml 941 ml Output Total 1275 ml 1700 ml 1100 ml Balance -355 ml -1220 ml -159 ml Result Diagram: 06/01/16 0426 06/01/16 0426 Imaging Last Impressions Chest X-Ray 05/27/16 0000 Signed Impressions: Service Date/Time: Friday, May 27, 2016 02:39 - CONCLUSION: 1. Limited study. 2. Grossly unchanged basilar consolidations. 3. Tracheostomy tube. Chano Dutta Jr., MD Liver Ultrasound 05/09/16 0000 Signed Impressions: Service Date/Time: Monday, May 09, 2016 22:28 - CONCLUSION: 1. Enlarged, fatty liver. 2. Small stones or tumefactive sludge adherent to one of the gallbladder arcos. 3. Splenomegaly. 4. Pancreas is obscured by overlying bowel gas and patient's body habitus. Arthur Kennedy MD Abdomen X-Ray 05/01/16 0000 Signed Impressions: Service Date/Time: Sunday, May 01, 2016 17:28 - CONCLUSION: No evidence of obstruction. Feeding tube overlies the distal stomach, May have to be advanced slightly to reach the duodenum. Nick Jon MD Chest CT 03/28/16 0836 Signed Impressions: Service Date/Time: Monday, March 28, 2016 09:57 - CONCLUSION: Development areas of air bronchograms and consolidation more prominent in the right and left posterior basilar segments of the lower lobes. ET tube above the chanelle. Bernard Hartman MD CT Angiography 03/24/16 1121 Signed Impressions: Service Date/Time: Thursday, March 24, 2016 12:47 - CONCLUSION: 1. There is respiratory motion artifact but no PE is identified through most of the segmental level pulmonary arteries. 2. Mildly enlarged main pulmonary artery may indicate pulmonary arterial hypertension. 3. 11 mm left lower lobe noncalcified pulmonary nodule. Suggest correlation with any prior imaging studies that could confirm longer-term stability. If none are available consider short-term followup noncontrast chest CT in approximately 3 months. Ubaldo Rodas MD Objective Remarks GENERAL: 50-year-old morbidly obese male, with tracheostomy, alert and oriented and interactive SKIN: Integrity intact. Warm and dry. HEAD: Atraumatic. Normocephalic. EYES: Pupils equal round and slightly reactive about 3 millimeters bilaterally. ENT: NG tube in place. Tracheostomy in situ no drainage or erythema around the site NECK: Very large neck. Trachea midline. CARDIOVASCULAR: Distant heart sounds. RRR. S1, S2. No S4. Without murmur RESPIRATORY: Status post percutaneous Tracheostomy. On mechanical ventilation, Breath sounds equal bilaterally. Diminished breath sounds due to body habitus. GASTROINTESTINAL: Abdomen soft, obese, nontender. Severe central obesity, PEG tube without erythema or drainage MUSCULOSKELETAL: Extremities with trace to 1+ nonpitting bilateral lower extremity edema. NEUROLOGICAL: Alert, Follows commands, moves extremities 4. Date of Insertion: May 03, 2016 Date of Insertion: Apr 02, 2016 Date of Removal: May 03, 2016 Line: PICC Side: Left Location: Antecubital A/P Assessment and Plan Neuro/Psych: Likely SERENITY Toxic metabolic encephalopathy-resolved Continue [place] 5/325mg every 12hrs scheduled - attempt to wean fentanyl patch 25 to 72 hours Seroquel 25mg BID initiated 3/3 Lyrica 50 mg by mouth daily for neuropathy On oxycodone 5 mg by mouth every 6 hours when necessary faint 7-10 Acetaminophen for fever Pulm: Acute hypercarbic hypoxemic respiratory failure JACOB OHS History of staph aureus pneumonia/HCAP ARDS Tracheostomy exchange to #6 Shiley fenestrated cuffed on 05/27 PRVC 16/600/0.9/8/40 Ventilator bundle Bronchial dilator therapy every 6 hours With Atrovent nebs every 2 hours when necessary dyspnea PEEP+8, Daily C Pap trials. CV: Monitor HR and BP keep MAP>65mmHg 2-D echo 03/26 EF 60%. No regional wall motion abnormality. Mild MR/TR. /FEN: Monitor renal function, I/O's, electrolytes replacement per protocol. GI: Constipation-resolved Moderate protein calorie malnutrition Nausea and vomiting On Glucerna 1.5@45ml/hr with 1 scoop whey protein 3 times a day, no residual. Hold Glucerna as patient tolerating by mouth diet starting 05/29 Protonix 40mg daily On Reglan 10mg Q8, Senna and Colace twice a day PEG tube placement- 05/03 Zofran 4 mg every 6 hours when necessary ID: Staph aureus pneumonia Possible staph bacteremia Pertinent culture 04/27 - pansensitive staph aureus 04/27 blood cultures 2 negative 04/25 - urine -no growth 04/19 - blood cultures 2 out of 4 - staph aureus 04/19 - sputum - staph aureus 04/08 - sputum - staph aureus 04/03 - sputum - staph aureus 03/30 - sputum- -staph aureus 03/27 - sputum - staph aureus 03/26 - blood - staph hominis On vancomycin 2 g IV every 12 are since 04/19 - 04/29 Azactam 04/27 through 04/29 ID on board-Dr. Painter Heme: Leukocytosis Monitor CBC/coags Monitor WBC labs every 3 days, unless clinically indicated Endo: Diabetes mellitus SSI for glycemic control with sliding scale insulin every 4 hours Levemir insulin 35 U Q12 MSK Morbid obesity Weight loss encouraged DVT, GI prophylaxis -Bilateral lower extremity SCDs. IV Protonix 40 mg daily. Lovenox 40 mg sq BID LINES: -Left upper extremity PICC line placed 04/15-05/04. Peripheral IVs x 2 Aditya Monge MD Jun 01, 2016 10:49
--- NOTE | 2016-06-01 19:10 | HHI.PR ---
Subjective Remarks off THE VENTILATOR ALERT RESPONDS APPROPRIATELY Objective Vital Signs Date Time Temp Pulse Resp B/P Pulse Ox O2 Delivery O2 Flow Rate FiO2 06/01/16 18:00 105 06/01/16 16:00 99 06/01/16 16:00 99.2 99 30 116/69 95 06/01/16 15:00 97 T-piece 5.00 40 06/01/16 14:00 90 06/01/16 12:00 82 06/01/16 12:00 99.0 84 22 111/58 95 06/01/16 12:00 40 06/01/16 11:46 97 40 06/01/16 11:40 40 06/01/16 10:00 91 06/01/16 09:50 40 06/01/16 09:50 92 40 06/01/16 08:30 30 06/01/16 08:30 30 06/01/16 08:30 30 06/01/16 08:00 30 06/01/16 08:00 99.0 97 30 111/62 94 06/01/16 08:00 97 06/01/16 07:30 94 30 06/01/16 07:30 30 06/01/16 07:30 30 06/01/16 07:00 97 Mechanical Ventilator 30 06/01/16 06:00 91 06/01/16 04:00 99.4 94 14 104/61 97 06/01/16 04:00 94 06/01/16 04:00 30 06/01/16 03:42 98 30 06/01/16 02:00 92 06/01/16 00:00 30 06/01/16 00:00 99.3 96 13 104/61 98 06/01/16 00:00 96 05/31/16 23:56 94 30 05/31/16 22:00 91 05/31/16 20:00 100.1 102 15 111/64 98 05/31/16 20:00 102 05/31/16 20:00 30 05/31/16 19:28 96 30 I/O 05/31/16 05/31/16 05/31/16 06/01/16 06/01/16 06/01/16 07:00 15:00 23:00 07:00 15:00 23:00 Intake Total 920 ml 480 ml 941 ml 480 ml 480 ml Output Total 1275 ml 1700 ml 1100 ml 1425 ml 1650 ml Balance -355 ml -1220 ml -159 ml -945 ml -1170 ml Intake Oral 720 ml 480 ml 941 ml 480 ml 480 ml Tube Feeding 0 ml Other 200 ml Output Urine Total 1275 ml 1700 ml 1100 ml 1425 ml 1650 ml # Voids 1 1 # Bowel Movements 1 0 0 0 Result Diagram: 06/01/1642506/01/16425 Objective Remarks GENERAL: SKIN: Warm and dry. HEAD: Atraumatic. Normocephalic. EYES: Pupils equal and round. No scleral icterus. No injection or drainage. ENT: No nasal bleeding or discharge. Mucous membranes pink and moist. NECK: Trachea midline. No JVD. CARDIOVASCULAR: Regular rate and rhythm. RESPIRATORY: No accessory muscle use. Clear to auscultation. Breath sounds equal bilaterally. GASTROINTESTINAL: Abdomen soft, non-tender, nondistended. Hepatic and splenic margins not palpable. MUSCULOSKELETAL: Extremities without clubbing, cyanosis, or edema. No obvious deformities. NEUROLOGICAL: Awake and alert. No obvious cranial nerve deficits. Motor grossly within normal limits. Five out of 5 muscle strength in the arms and legs. Normal speech. PSYCHIATRIC: Appropriate mood and affect; insight and judgment normal. Assessment and Plan Assessment and Plan OFF THE VENTILATOR NO ON TPIECE RESPIRATORY FAILURE SEPSIS RESOLVED ARDS JACOB/CSA S/P TRACH. PLAN PULM TOILET INCREASE Activity ON TPIECE Orlando Perry MD Jun 01, 2016 19:10
[2016-06-02] VITALS (17 sets, daily range): BP systolic 104–140; BP diastolic 57–61; PULSE 86–104; RESP 11–34; TEMP 98–99.3; O2SAT 93–100
[2016-06-02] MEDS: ARTIFICIAL TEARS OPTH SOLN 15 ML BTL EACH EYE SCH ×6 (02:00→20:40)
[2016-06-02] MEDS: FREE WATER G-TUBE SCH ×4 (06:00→17:59)
[2016-06-02] MEDS: ENOXAPARIN SODIUM 40 MG/0.4 ML SYRINGE SQ SCH ×2 (06:25→17:58)
[2016-06-02] MEDS: METOCLOPRAMIDE HCL 10 MG TAB G-TUBE SCH ×2 (06:25→14:43)
[2016-06-02] MEDS: INSULIN ASPART SUPPLEMENTAL SCALE SQ SCH ×4 (06:33→20:53)
[2016-06-02] MEDS: CHLORHEXIDINE 0.12% (ORAL KIT) 15 ML CUP MT SCH ×2 (08:00→20:41)
[2016-06-02] MEDS: ARTIFICIAL TEARS OPTH OINT 3.5 APPLIC/3.5 GM TUBO EACH EYE SCH (08:46)
[2016-06-02] MEDS: BENEPROTEIN POWDER 1 PACK G-TUBE SCH ×3 (08:46→17:59)
[2016-06-02] MEDS: PANTOPRAZOLE SOD 40 MG DELAYED RELEASE TAB PO SCH (08:47)
[2016-06-02] MEDS: LACTOBACILLUS ACIDOPHILUS TAB PO SCH ×3 (08:47→17:58)
[2016-06-02] MEDS: SODIUM CHLORIDE 0.9% FLUSH 5 ML FLUSH IVF SCH (08:47)
[2016-06-02] MEDS: QUEtiapine FUMARATE 25 MG TAB PO SCH ×2 (08:47→20:37)
[2016-06-02] MEDS: POTASSIUM CHLORIDE 10 MEQ CONTROLLED RELEASE TAB PO SCH (08:47)
[2016-06-02] MEDS: PREGABALIN 25 MG CAP PO SCH (08:47)
[2016-06-02] MEDS: BACLOFEN 10 MG TAB PO SCH ×2 (08:48→20:37)
[2016-06-02] MEDS: NYSTATIN 100,000 U/GM PWD 15 GM BTL TOPICAL SCH ×2 (08:48→20:40)
[2016-06-02] MEDS: DOCUSATE SODIUM 100 MG/10 ML UDC PO SCH ×2 (08:48→20:37)
[2016-06-02] MEDS: POLYETHYLENE GLYCOL 17 GM PKG PO SCH ×2 (08:48→20:41)
[2016-06-02] MEDS: SENNOSIDES SYRUP 8.8 MG/5 ML CUP PO/TUBE SCH ×2 (08:48→20:38)
[2016-06-02] MEDS: ACETAMINOPHEN/HYDROcodone 325 MG/5 MG TAB PO SCH ×2 (08:48→20:37)
[2016-06-02] MEDS: SILVER SULFADIAZINE 1% CR 400 GM JAR TOPICAL SCH (08:49)
[2016-06-02] MEDS: BETAMETHASONE/CLOTRIMAZOLE CREAM 15 GM TOPICAL SCH ×2 (08:50→20:39)
--- NOTE | 2016-06-02 14:05 | HHI.CCPN ---
Subjective Remarks/Hospital Course Patient is a 50 years old obese male with past medical history significant for undiagnosed sleep apnea, super morbid obesity, type 2 diabetes was brought to the emergency department on 03/24/16 after feeling light headed and dizzy. On presentation here was found to be hypoxemic and ABG showed severe hypoxemia and hypercarbia. For a recent driving physical he was diagnosed with low oxygen saturations. Patient's oxygen saturation the ED was in the low 80s, which was confirmed on ABG with a oxygen saturation of 78% and PO2 of 46. CTA negative for PE. Patient was initiated on BiPAP therapy with consult to pulmonary Dr. Crane. His oxygenation improved but he continued to be hypercapnic. Today a.m. on nasal cannula his pH was 7.26 and PCO2 was increased at 99, patient was somnolent was placed back on BiPAP and repeat ABG at noon showed pH 7.26 PCO2 98 and pO2 70. This was on 16 BiPAP with FiO2 50%. Critical care was consulted. On my evaluation patient is somnolent but wakes up easily. I reduced the PEEP on BiPAP from 12-7 to facilitate better ventilation. A repeat ANG showed only minimal improvement, so decision made to intubate patient. Glidescope with #4 blade was used. Only propofol was used for induction. Initially I had a Grade 1-2 view, but I was unable to pass tube through the vocal cord to trachea in two attempts. Tube slipped out of Laryngeal opening both times. Dr Garrett intubated patient after NM paralysis with succinylcholine. Post intubation ABG showed improvement in hypercapnia and oxygenation. 03/27/16: Patient remains intubated heavily sedated with propofol and fentanyl. Remained severely hypoxemic on 100% FiO2, PEEP12, chest x-ray shows bibasilar infiltrates. Flagyl added. We'll give 1 dose of vancomycin-Adjust antibiotics according to cultures. Patient super morbid obesity may prevent Prone therapy 03/28: Remains hypoxic but ABG shows marginal improvement in oxygenation. WBC increasing 20.1 today. Start vancomycin scheduled. 03/29: Oxygenation is slightly improved. FiO2 reduced to 50% today. Chest x- ray remains unchanged. On sedation hold patient does wake up and follow commands. WBC count remains at 20 03/30 No acute events overnight. Sedated with Diprivan and Fentanyl. Had T: 100.1 at 4 am. WBC trending down 15.9 today from 20. 03/31 Patient remains sedated with Diprivan, Fentanyl and intubated. Tmax 100.1. Patient required increase O2 overnight now on ACV with PEEP: 12 and FIO2 70%. 04/01: Tmax 99.7. No bowel movement since admission. Patient has bowel sounds. Arousable on the ventilator. We'll attempt prone the patient paralyzed to increase oxygenation status. 04/02: MAXIMUM TEMPERATURE 100.9. Currently 97.7. 5 10 cc stools overnight. Placed on Roto prone yesterday. Saturations currently 94% on Flolan. Diuresed overnight. Creatinine still within normal limits. 04/03: Tmax 101. Currently 99.1. Positive BM. Did not tolerate not being unprone this AM. Saturations much improved prone. Tolerating tube feeding. 04/04: Tmax 100.8. Currently 98.8. +2 L past 24 hours. Attempt to on prone today. Positive BM. C. difficile negative. Remains paralyzed. 04/05: Remains sedated, orally intubated on neuromuscular blockade on mechanical ventilation. Remains on Rota prone bed. On insulin drip. 04/06: Remains sedated, orally intubated on neuromuscular blockade, on mechanical ventilation. Remains on Rota prone bed. Insulin drip continues. 04/07 Patient remains on Rotoprone bed sedated with Diprivan, Versed, Fentanyl in addition patient is on Nimbex. Afebrile. On Insulin drip 5u/hr. 04/08 Patient remains sedated and intubated and on Nimbex. Off insulin drip. On PRVC/AC with RR 15, TV 550, IT: 1.65, PEEP: 15 and FIO2 100%. T: 100.2 at 4 am. 04/09 Patient is sedated, intubated and remains on neuromuscular blockade. Vent setting unchanged. afebrile. 04/10 Patient remains sedated and intubated and on Nimbex. On PRVC/AC, RR 15, TV 500, PEEP: 15, FIO2 90%, IT:1.65, on Flolan drip. Remains on Rotoprone bed. 04/11 minimal improvement in oxygenation, FiO2 now at 75 - continue to improve oxygenation, worsening CXR 04/13/10 continue to improve oxygenation DC'd prone position last night 04/14- improving oxygenation, Nimbex discontinued as well as prone position 04/16 Patient is sedated with Versed and Fentanyl and intubated. Off rotoprone bed. On PRVC/AC RR 15, TV 550, IT 1.65, PEEP:15, FIO2 50%. 04/17 Patient remains sedated with Versed and Fentanyl. Afebrile, tolerating tube feeds 04/18 No acute events overnight Sedated and intubated. Afebrile. On PRVC/AC RR 15 , TV 550, IT 1.65, PEEP:15, FIO2 60% 04/19: Spiking fever up to 101, pancultured and 1 dose of vancomycin given by ID. On weaning doses of Flolan. FiO2 down to 50% I have reduced PEEP to 14. Remains critically ill 04/20: No fever. Sputum cx with Staph -S pending. Fio2 50% PEEP remains at 14. TV increased to 650 to improve lung recruitment. On weaning dose of Flolan-DC after current bag 04/21:Afebrile. Hyponatremia resolving, the patient will be placed on free water flushes. 04/22:The patient had an episode of acute desaturation requiring FiO2 increased to 90%. Stat chest x-ray stat ABG aggressive pulmonary toileting and suctioning , resolution of symptoms FiO2 now 55%. ABGs within normal limits. 04/23: Tmax 99.5. Currently afebrile. O2 sat 50%. PEEP down to 13. One small bowel movement overnight. 04/24: Currently afebrile. O2 sat 45%. PEEP to 12. One BM. Tolerating tube feeds. 04/25: Afebrile. PEEP down to 11. Positive BM. Tolerating tube feeds. Awake on the ventilator with eyes open. 04/26: Afebrile. PEEP down to 10. Time to feeding. Awake and alert eyes open. 04/27: Suspected fever overnight. One bowel movement documented. Will decreased PEEP to 9. Awake and alert and follows commands. 04/28: Tmax 99.3. Currently afebrile. FiO2 increased to 70%. PEEP to 10. Awake and does follow commands. Positive BM 4 yesterday. 04/29: FiO2 down to 55%. Peak systolic 10. Awake and does follow commands. Positive BM 1 yesterday. Tolerating tube feeding. 04/30: No acute issues overnight . The patient continues to be sedated with plans for tracheostomy in the OR today. The patient follows commands when on sedation vacation. 05/01: Postop day 1 post tracheostomy tube placement, no issues overnight. Plan for CPAP trials today. 05/02: Afebrile. The patient continues on CPAP trial 15/5 , FiO2 .45%. The patient alert and responsive this a.m., continues on Precedex and fentanyl infusion. By mouth narcotics, and fentanyl patch instituted to transition all fentanyl infusion. PEG tube placement pending. 05/03: The patient's fentanyl infusion was discontinued last evening. Multimodal analgesia initiated. Patient continues on Precedex infusion, GCS 14 T. Plans today for PEG placement later on this afternoon. No acute issues overnight. 05/04 Tmax 101.0. The patient's PICC line was removed, peripheral IVs initiated. Blood, urine and sputum cultures obtained. Methylprednisolone continues to be weaned currently at 20 mg daily. Plan for weaning of Precedex infusion off today. Seroquel 25 mg twice a day added to medication regimen. The patient continues on CPAP trials. 05/05: Tmax 99.1. Overnight the patient was maintained on CPAP trials of 15/5/40% , the patient's respiratory rate continues to be low 30s, tolerated well. The sake early this a.m. the patient was noticed to have a episode of nausea and vomiting Zofran instituted. The patient continues on scheduled Reglan TID. Blood , sputum and urine cultures were obtained yesterday secondary to elevated temperature awaiting results. 05/06: The patient remains on T piece greater than 48 hours. The patient is alert oriented and cooperative. Trach site without erythema or drainage. Patient was noticed over the last 12 hours to have multiple bowel movements or in the night. Will D/C MiraLAX, lactulose and Reglan will be discontinued. Plan for possible transfer to LTAC facility. 05/07 no acute issues overnight tolerating TPs 05/27 shortly after midnight rapid response team was called due to patient's respiratory distress and hypercarbic respiratory failure with hypoxemia and cyanosis 05/27: Tracheostomy was exchanged this morning to a #6 Shiley fenestrated cuffed. Currently on PRVC with PEEP of 10. Saturations are much improved. Awake and alert and following commands. Requesting diet. 05/28: Awake and alert. On mechanical ventilation via tracheostomy. Following commands. 05/29: Awake and alert. On mechanical ventilation via tracheostomy. Tolerating PO diet. Following commands. 05/30: Awake and alert. On mechanical ventilation via tracheostomy. Tolerating by mouth diet. Following commands. 05/31: Remains on mechanical ventilation via tracheostomy. Tolerating C Pap/ pressure support. Following commands. Tolerating by mouth diet. 06/01: Remains on mechanical ventilation via tracheostomy. Awake and alert. Tolerated C Pap and pressure support however gets extremely tachypneic on dropping pressure-support to +5. Tolerating by mouth diet Subjective 06/02: Tmax 99.5. Currently 99. Currently on T piece trial. Condom catheter placed. Objective Vital Signs Date Time Temp Pulse Resp B/P Pulse Ox O2 Delivery O2 Flow Rate FiO2 06/02/16 09:08 97 40 06/02/16 09:08 Ventilator 06/02/16 06:00 93 06/02/16 04:00 99.3 23 115/59 06/01/16 20:34 6.00 Intake and Output 06/01/16 06/01/16 06/02/16 08:00 16:00 00:00 Intake Total 480 ml 480 ml 360 ml Output Total 1425 ml 1650 ml 725 ml Balance -945 ml -1170 ml -365 ml Result Diagram: 06/01/16 0426 06/01/16 0426 Imaging Last Impressions Chest X-Ray 05/28/16 0600 Signed Impressions: Service Date/Time: Saturday, May 28, 2016 04:49 - CONCLUSION: Unchanged bibasilar densities. Wale Dalal MD Liver Ultrasound 05/09/16 0000 Signed Impressions: Service Date/Time: Monday, May 09, 2016 22:28 - CONCLUSION: 1. Enlarged, fatty liver. 2. Small stones or tumefactive sludge adherent to one of the gallbladder arcos. 3. Splenomegaly. 4. Pancreas is obscured by overlying bowel gas and patient's body habitus. Arthur Kennedy MD Abdomen X-Ray 05/01/16 0000 Signed Impressions: Service Date/Time: Sunday, May 01, 2016 17:28 - CONCLUSION: No evidence of obstruction. Feeding tube overlies the distal stomach, May have to be advanced slightly to reach the duodenum. Nick Jon MD Chest CT 03/28/16 0836 Signed Impressions: Service Date/Time: Monday, March 28, 2016 09:57 - CONCLUSION: Development areas of air bronchograms and consolidation more prominent in the right and left posterior basilar segments of the lower lobes. ET tube above the chanelle. Bernard Hartman MD CT Angiography 03/24/16 1121 Signed Impressions: Service Date/Time: Thursday, March 24, 2016 12:47 - CONCLUSION: 1. There is respiratory motion artifact but no PE is identified through most of the segmental level pulmonary arteries. 2. Mildly enlarged main pulmonary artery may indicate pulmonary arterial hypertension. 3. 11 mm left lower lobe noncalcified pulmonary nodule. Suggest correlation with any prior imaging studies that could confirm longer-term stability. If none are available consider short-term followup noncontrast chest CT in approximately 3 months. Ubaldo Rodas MD Objective Remarks GENERAL: 50-year-old morbidly obese male, with tracheostomy, alert and oriented and interactive SKIN: Integrity intact. Warm and dry. HEAD: Atraumatic. Normocephalic. EYES: Pupils equal round and slightly reactive about 3 millimeters bilaterally. ENT: Tracheostomy in situ no drainage or erythema around the site CARDIOVASCULAR: Distant heart sounds. RRR. S1, S2. No S4. Without murmur RESPIRATORY: Status post percutaneous tracheostomy. On mechanical ventilation, Breath sounds equal bilaterally. Diminished breath sounds due to body habitus. GASTROINTESTINAL: Abdomen soft, obese, nontender. Severe central obesity, PEG tube without erythema or drainage MUSCULOSKELETAL: Extremities with trace to 1+ nonpitting bilateral lower extremity edema. NEUROLOGICAL: Alert, Follows commands, moves extremities 4. Date of Insertion: May 03, 2016 Date of Insertion: Apr 02, 2016 Date of Removal: May 03, 2016 Line: PICC Side: Left Location: Antecubital A/P Assessment and Plan Neuro/Psych: Likely SERENITY Toxic metabolic encephalopathy-resolved Continue Edison 5/325mg every 12hrs scheduled - attempt to wean fentanyl patch 25 micrograms every 72 hours Seroquel 25mg BID initiated 3/3 Lyrica 50 mg by mouth daily for neuropathy On oxycodone 5 mg by mouth every 6 hours when necessary pain 7-10 Baclofen 10 every 12 Acetaminophen for fever Pulm: Acute hypercarbic hypoxemic respiratory failure JACOB O[facility] History of staph aureus pneumonia/HCAP ARDS Tracheostomy exchange to #6 Shiley fenestrated cuffed on 05/27 PRVC 16/600/0.9/8/40 - CPAP trials earlier today Currently on T piece trials as tolerated Ventilator bundle Bronchial dilator therapy every 6 hours With Atrovent nebs every 2 hours when necessary dyspnea CV: Monitor HR and BP keep MAP>65mmHg 2-D echo 03/26 EF 60%. No regional wall motion abnormality. Mild MR/TR. /FEN: Monitor renal function, I/O's, electrolytes replacement per protocol. GI: Constipation-resolved Moderate protein calorie malnutrition Nausea and vomiting Continue oral diet starting 05/29 Protonix 40mg daily Senna and Colace twice a day PEG tube placement- 05/03 Zofran 4 mg every 6 hours when necessary ID: Staph aureus pneumonia Pertinent culture 05/27 - sputum - MSSA 04/27 - pansensitive staph aureus 04/27 blood cultures 2 negative 04/25 - urine -no growth 04/19 - blood cultures 2 out of 4 - staph aureus 04/19 - sputum - staph aureus 04/08 - sputum - staph aureus 04/03 - sputum - staph aureus 03/30 - sputum- -staph aureus 03/27 - sputum - staph aureus 03/26 - blood - staph hominis On vancomycin 2 g IV every 12 are since 04/19 - 04/29 Azactam 04/27 through 04/29 ID on board-Dr. Painter Heme: Leukocytosis Monitor CBC/coags Monitor WBC labs every 3 days, unless clinically indicated Endo: Diabetes mellitus SSI for glycemic control with sliding scale insulin every 4 hours Levemir insulin 35 U Q12 currently on hold. MSK Morbid obesity Weight loss encouraged DVT, GI prophylaxis -Bilateral lower extremity SCDs. IV Protonix 40 mg daily. Lovenox 40 mg sq BID LINES: -Left upper extremity PICC line placed 04/15-05/04. Peripheral IVs x 2 Critical Care: The total critical care time was 35 minutes. Time to perform other separately billable procedures was not included in the critical care time. Codey Florentino MD Jun 02, 2016 14:05
[2016-06-02] MEDS: RESP: ALBUTEROL 2.5 MG/IPRATROPIUM 0.5 MG NEB (SCH) NEB ×2 (15:46→20:45)
--- NOTE | 2016-06-02 17:40 | HHI.PR ---
Subjective Remarks off THE VENTILATOR ALERT RESPONDS APPROPRIATELY Objective Vital Signs Date Time Temp Pulse Resp B/P Pulse Ox O2 Delivery O2 Flow Rate FiO2 06/02/16 16:00 98.2 93 20 140/61 97 06/02/16 16:00 94 06/02/16 16:00 40 06/02/16 14:00 90 06/02/16 12:00 40 06/02/16 12:00 90 06/02/16 12:00 98.4 90 19 104/58 94 06/02/16 10:00 96 06/02/16 09:08 97 40 06/02/16 09:08 100 Ventilator 40 06/02/16 08:00 90 06/02/16 08:00 98.0 90 11 109/57 100 06/02/16 08:00 40 06/02/16 07:00 94 Mechanical Ventilator 35 06/02/16 06:00 93 06/02/16 04:19 96 40 06/02/16 04:00 40 06/02/16 04:00 99.3 86 23 115/59 96 06/02/16 04:00 86 06/02/16 02:00 90 06/02/16 01:15 93 40 06/02/16 01:15 40 06/02/16 00:00 100 06/02/16 00:00 98.7 100 28 120/58 93 06/01/16 22:50 25 06/01/16 22:00 102 06/01/16 20:34 98 T-piece 6.00 40 06/01/16 20:00 99.5 98 30 115/58 95 06/01/16 20:00 98 06/01/16 19:00 96 T-Piece 40 06/01/16 18:00 105 I/O 06/01/16 06/01/16 06/01/16 06/02/16 06/02/16 06/02/16 07:00 15:00 23:00 07:00 15:00 23:00 Intake Total 480 ml 480 ml 360 ml 480 ml 750 ml Output Total 1425 ml 1650 ml 725 ml 725 ml 350 ml Balance -945 ml -1170 ml -365 ml -245 ml 400 ml Intake Oral 480 ml 480 ml 360 ml 480 ml 750 ml Output Urine Total 1425 ml 1650 ml 725 ml 725 ml 350 ml # Voids 1 # Bowel Movements 0 0 0 0 1 Result Diagram: 06/01/166 06/01/16 0426 Objective Remarks GENERAL: SKIN: Warm and dry. HEAD: Atraumatic. Normocephalic. EYES: Pupils equal and round. No scleral icterus. No injection or drainage. ENT: No nasal bleeding or discharge. Mucous membranes pink and moist. NECK: Trachea midline. No JVD. CARDIOVASCULAR: Regular rate and rhythm. RESPIRATORY: No accessory muscle use. Clear to auscultation. Breath sounds equal bilaterally. GASTROINTESTINAL: Abdomen soft, non-tender, nondistended. Hepatic and splenic margins not palpable. MUSCULOSKELETAL: Extremities without clubbing, cyanosis, or edema. No obvious deformities. NEUROLOGICAL: Awake and alert. No obvious cranial nerve deficits. Motor grossly within normal limits. Five out of 5 muscle strength in the arms and legs. Normal speech. PSYCHIATRIC: Appropriate mood and affect; insight and judgment normal. Assessment and Plan Assessment and Plan OFF THE VENTILATOR NO ON TPIECE RESPIRATORY FAILURE SEPSIS RESOLVED ARDS JACOB/CSA S/P TRACH. PLAN PULM TOILET INCREASE Activity ON TPIECE Discussed Condition With GENERAL: SKIN: Warm and dry. HEAD: Atraumatic. Normocephalic. EYES: Pupils equal and round. No scleral icterus. No injection or drainage. ENT: No nasal bleeding or discharge. Mucous membranes pink and moist. NECK: Trachea midline. No JVD. CARDIOVASCULAR: Regular rate and rhythm. RESPIRATORY: No accessory muscle use. Clear to auscultation. Breath sounds equal bilaterally. GASTROINTESTINAL: Abdomen soft, non-tender, nondistended. Hepatic and splenic margins not palpable. MUSCULOSKELETAL: Extremities without clubbing, cyanosis, or edema. No obvious deformities. NEUROLOGICAL: Awake and alert. No obvious cranial nerve deficits. Motor grossly within normal limits. Five out of 5 muscle strength in the arms and legs. Normal speech. PSYCHIATRIC: Appropriate mood and affect; insight and judgment normal. Orlando Perry MD Jun 02, 2016 17:40
[2016-06-03] VITALS (17 sets, daily range): BP systolic 100–125; BP diastolic 40–67; PULSE 87–106; RESP 24–43; TEMP 98.1–99; O2SAT 93–100
[2016-06-03] MEDS: ARTIFICIAL TEARS OPTH SOLN 15 ML BTL EACH EYE SCH ×6 (02:00→21:23)
[2016-06-03] MEDS: RESP: ALBUTEROL 2.5 MG/IPRATROPIUM 0.5 MG NEB (SCH) NEB ×4 (03:22→21:36)
[2016-06-03] MEDS: ENOXAPARIN SODIUM 40 MG/0.4 ML SYRINGE SQ SCH ×2 (05:42→17:14)
[2016-06-03] MEDS: FREE WATER G-TUBE SCH ×4 (05:42→17:12)
[2016-06-03] MEDS: INSULIN ASPART SUPPLEMENTAL SCALE SQ SCH ×4 (05:53→21:00)
[2016-06-03] MEDS: CHLORHEXIDINE 0.12% (ORAL KIT) 15 ML CUP MT SCH ×2 (08:00→20:00)
[2016-06-03] MEDS: SENNOSIDES SYRUP 8.8 MG/5 ML CUP PO/TUBE SCH ×2 (09:00→21:21)
[2016-06-03] MEDS: NYSTATIN 100,000 U/GM PWD 15 GM BTL TOPICAL SCH ×2 (09:00→21:00)
[2016-06-03] MEDS: BENEPROTEIN POWDER 1 PACK G-TUBE SCH ×3 (09:00→17:12)
[2016-06-03] MEDS: SODIUM CHLORIDE 0.9% FLUSH 5 ML FLUSH IVF SCH (09:00)
[2016-06-03] MEDS: DOCUSATE SODIUM 100 MG/10 ML UDC PO SCH ×2 (09:29→21:21)
[2016-06-03] MEDS: POTASSIUM CHLORIDE 10 MEQ CONTROLLED RELEASE TAB PO SCH (09:29)
[2016-06-03] MEDS: LACTOBACILLUS ACIDOPHILUS TAB PO SCH ×3 (09:29→17:13)
[2016-06-03] MEDS: ACETAMINOPHEN/HYDROcodone 325 MG/5 MG TAB PO SCH ×2 (09:30→21:22)
[2016-06-03] MEDS: PANTOPRAZOLE SOD 40 MG DELAYED RELEASE TAB PO SCH (09:31)
[2016-06-03] MEDS: BACLOFEN 10 MG TAB PO SCH ×2 (09:31→21:22)
[2016-06-03] MEDS: QUEtiapine FUMARATE 25 MG TAB PO SCH ×2 (09:31→21:22)
[2016-06-03] MEDS: SILVER SULFADIAZINE 1% CR 400 GM JAR TOPICAL SCH (09:32)
[2016-06-03] MEDS: POLYETHYLENE GLYCOL 17 GM PKG PO SCH ×2 (09:34→21:21)
[2016-06-03] MEDS: BETAMETHASONE/CLOTRIMAZOLE CREAM 15 GM TOPICAL SCH ×2 (09:36→21:00)
[2016-06-03] MEDS: PREGABALIN 25 MG CAP PO SCH (12:55)
--- NOTE | 2016-06-03 13:22 | HHI.CCPN ---
Subjective Remarks/Hospital Course Patient is a 50 years old obese male with past medical history significant for undiagnosed sleep apnea, super morbid obesity, type 2 diabetes was brought to the emergency department on 03/24/16 after feeling light headed and dizzy. On presentation here was found to be hypoxemic and ABG showed severe hypoxemia and hypercarbia. For a recent driving physical he was diagnosed with low oxygen saturations. Patient's oxygen saturation the ED was in the low 80s, which was confirmed on ABG with a oxygen saturation of 78% and PO2 of 46. CTA negative for PE. Patient was initiated on BiPAP therapy with consult to pulmonary Dr. Crane. His oxygenation improved but he continued to be hypercapnic. Today a.m. on nasal cannula his pH was 7.26 and PCO2 was increased at 99, patient was somnolent was placed back on BiPAP and repeat ABG at noon showed pH 7.26 PCO2 98 and pO2 70. This was on 16 BiPAP with FiO2 50%. Critical care was consulted. On my evaluation patient is somnolent but wakes up easily. I reduced the PEEP on BiPAP from 12-7 to facilitate better ventilation. A repeat ANG showed only minimal improvement, so decision made to intubate patient. Glidescope with #4 blade was used. Only propofol was used for induction. Initially I had a Grade 1-2 view, but I was unable to pass tube through the vocal cord to trachea in two attempts. Tube slipped out of Laryngeal opening both times. Dr Garrett intubated patient after NM paralysis with succinylcholine. Post intubation ABG showed improvement in hypercapnia and oxygenation. 03/27/16: Patient remains intubated heavily sedated with propofol and fentanyl. Remained severely hypoxemic on 100% FiO2, PEEP12, chest x-ray shows bibasilar infiltrates. Flagyl added. We'll give 1 dose of vancomycin-Adjust antibiotics according to cultures. Patient super morbid obesity may prevent Prone therapy 03/28: Remains hypoxic but ABG shows marginal improvement in oxygenation. WBC increasing 20.1 today. Start vancomycin scheduled. 03/29: Oxygenation is slightly improved. FiO2 reduced to 50% today. Chest x- ray remains unchanged. On sedation hold patient does wake up and follow commands. WBC count remains at 20 03/30 No acute events overnight. Sedated with Diprivan and Fentanyl. Had T: 100.1 at 4 am. WBC trending down 15.9 today from 20. 03/31 Patient remains sedated with Diprivan, Fentanyl and intubated. Tmax 100.1. Patient required increase O2 overnight now on ACV with PEEP: 12 and FIO2 70%. 04/01: Tmax 99.7. No bowel movement since admission. Patient has bowel sounds. Arousable on the ventilator. We'll attempt prone the patient paralyzed to increase oxygenation status. 04/02: MAXIMUM TEMPERATURE 100.9. Currently 97.7. 5 10 cc stools overnight. Placed on Roto prone yesterday. Saturations currently 94% on Flolan. Diuresed overnight. Creatinine still within normal limits. 04/03: Tmax 101. Currently 99.1. Positive BM. Did not tolerate not being unprone this AM. Saturations much improved prone. Tolerating tube feeding. 04/04: Tmax 100.8. Currently 98.8. +2 L past 24 hours. Attempt to on prone today. Positive BM. C. difficile negative. Remains paralyzed. 04/05: Remains sedated, orally intubated on neuromuscular blockade on mechanical ventilation. Remains on Rota prone bed. On insulin drip. 04/06: Remains sedated, orally intubated on neuromuscular blockade, on mechanical ventilation. Remains on Rota prone bed. Insulin drip continues. 04/07 Patient remains on Rotoprone bed sedated with Diprivan, Versed, Fentanyl in addition patient is on Nimbex. Afebrile. On Insulin drip 5u/hr. 04/08 Patient remains sedated and intubated and on Nimbex. Off insulin drip. On PRVC/AC with RR 15, TV 550, IT: 1.65, PEEP: 15 and FIO2 100%. T: 100.2 at 4 am. 04/09 Patient is sedated, intubated and remains on neuromuscular blockade. Vent setting unchanged. afebrile. 04/10 Patient remains sedated and intubated and on Nimbex. On PRVC/AC, RR 15, TV 500, PEEP: 15, FIO2 90%, IT:1.65, on Flolan drip. Remains on Rotoprone bed. 04/11 minimal improvement in oxygenation, FiO2 now at 75 - continue to improve oxygenation, worsening CXR 04/13/10 continue to improve oxygenation DC'd prone position last night 04/14- improving oxygenation, Nimbex discontinued as well as prone position 04/16 Patient is sedated with Versed and Fentanyl and intubated. Off rotoprone bed. On PRVC/AC RR 15, TV 550, IT 1.65, PEEP:15, FIO2 50%. 04/17 Patient remains sedated with Versed and Fentanyl. Afebrile, tolerating tube feeds 04/18 No acute events overnight Sedated and intubated. Afebrile. On PRVC/AC RR 15 , TV 550, IT 1.65, PEEP:15, FIO2 60% 04/19: Spiking fever up to 101, pancultured and 1 dose of vancomycin given by ID. On weaning doses of Flolan. FiO2 down to 50% I have reduced PEEP to 14. Remains critically ill 04/20: No fever. Sputum cx with Staph -S pending. Fio2 50% PEEP remains at 14. TV increased to 650 to improve lung recruitment. On weaning dose of Flolan-DC after current bag 04/21:Afebrile. Hyponatremia resolving, the patient will be placed on free water flushes. 04/22:The patient had an episode of acute desaturation requiring FiO2 increased to 90%. Stat chest x-ray stat ABG aggressive pulmonary toileting and suctioning , resolution of symptoms FiO2 now 55%. ABGs within normal limits. 04/23: Tmax 99.5. Currently afebrile. O2 sat 50%. PEEP down to 13. One small bowel movement overnight. 04/24: Currently afebrile. O2 sat 45%. PEEP to 12. One BM. Tolerating tube feeds. 04/25: Afebrile. PEEP down to 11. Positive BM. Tolerating tube feeds. Awake on the ventilator with eyes open. 04/26: Afebrile. PEEP down to 10. Time to feeding. Awake and alert eyes open. 04/27: Suspected fever overnight. One bowel movement documented. Will decreased PEEP to 9. Awake and alert and follows commands. 04/28: Tmax 99.3. Currently afebrile. FiO2 increased to 70%. PEEP to 10. Awake and does follow commands. Positive BM 4 yesterday. 04/29: FiO2 down to 55%. Peak systolic 10. Awake and does follow commands. Positive BM 1 yesterday. Tolerating tube feeding. 04/30: No acute issues overnight . The patient continues to be sedated with plans for tracheostomy in the OR today. The patient follows commands when on sedation vacation. 05/01: Postop day 1 post tracheostomy tube placement, no issues overnight. Plan for CPAP trials today. 05/02: Afebrile. The patient continues on CPAP trial 15/5 , FiO2 .45%. The patient alert and responsive this a.m., continues on Precedex and fentanyl infusion. By mouth narcotics, and fentanyl patch instituted to transition all fentanyl infusion. PEG tube placement pending. 05/03: The patient's fentanyl infusion was discontinued last evening. Multimodal analgesia initiated. Patient continues on Precedex infusion, GCS 14 T. Plans today for PEG placement later on this afternoon. No acute issues overnight. 05/04 Tmax 101.0. The patient's PICC line was removed, peripheral IVs initiated. Blood, urine and sputum cultures obtained. Methylprednisolone continues to be weaned currently at 20 mg daily. Plan for weaning of Precedex infusion off today. Seroquel 25 mg twice a day added to medication regimen. The patient continues on CPAP trials. 05/05: Tmax 99.1. Overnight the patient was maintained on CPAP trials of 15/5/40% , the patient's respiratory rate continues to be low 30s, tolerated well. The sake early this a.m. the patient was noticed to have a episode of nausea and vomiting Zofran instituted. The patient continues on scheduled Reglan TID. Blood , sputum and urine cultures were obtained yesterday secondary to elevated temperature awaiting results. 05/06: The patient remains on T piece greater than 48 hours. The patient is alert oriented and cooperative. Trach site without erythema or drainage. Patient was noticed over the last 12 hours to have multiple bowel movements or in the night. Will D/C MiraLAX, lactulose and Reglan will be discontinued. Plan for possible transfer to LTAC facility. 05/07 no acute issues overnight tolerating TPs 05/27 shortly after midnight rapid response team was called due to patient's respiratory distress and hypercarbic respiratory failure with hypoxemia and cyanosis 05/27: Tracheostomy was exchanged this morning to a #6 Shiley fenestrated cuffed. Currently on PRVC with PEEP of 10. Saturations are much improved. Awake and alert and following commands. Requesting diet. 05/28: Awake and alert. On mechanical ventilation via tracheostomy. Following commands. 05/29: Awake and alert. On mechanical ventilation via tracheostomy. Tolerating PO diet. Following commands. 05/30: Awake and alert. On mechanical ventilation via tracheostomy. Tolerating by mouth diet. Following commands. 05/31: Remains on mechanical ventilation via tracheostomy. Tolerating C Pap/ pressure support. Following commands. Tolerating by mouth diet. 06/01: Remains on mechanical ventilation via tracheostomy. Awake and alert. Tolerated C Pap and pressure support however gets extremely tachypneic on dropping pressure-support to +5. Tolerating by mouth diet 06/02: Tmax 99.5. Currently 99. Currently on T piece trial. Condom catheter placed. Subjective 06/03: Currently T piece trial. Saturations around 98 %. Appears comfortable. He is in no acute distress. No issues overnight Objective Vital Signs Date Time Temp Pulse Resp B/P Pulse Ox O2 Delivery O2 Flow Rate FiO2 06/03/16 12:12 98.8 92 43 100/40 94 06/03/16 10:58 T-piece 5.00 40 Intake and Output 06/02/16 06/02/16 06/03/16 08:00 16:00 00:00 Intake Total 480 ml 750 ml 600 ml Output Total 725 ml 350 ml 800 ml Balance -245 ml 400 ml -200 ml Result Diagram: 06/01/16 0426 06/01/16 0426 Imaging Last Impressions Chest X-Ray 05/28/16 0600 Signed Impressions: Service Date/Time: Saturday, May 28, 2016 04:49 - CONCLUSION: Unchanged bibasilar densities. Wael Dalal MD Liver Ultrasound 05/09/16 0000 Signed Impressions: Service Date/Time: Monday, May 09, 2016 22:28 - CONCLUSION: 1. Enlarged, fatty liver. 2. Small stones or tumefactive sludge adherent to one of the gallbladder arcos. 3. Splenomegaly. 4. Pancreas is obscured by overlying bowel gas and patient's body habitus. Arthur Kennedy MD Abdomen X-Ray 05/01/16 0000 Signed Impressions: Service Date/Time: Sunday, May 01, 2016 17:28 - CONCLUSION: No evidence of obstruction. Feeding tube overlies the distal stomach, May have to be advanced slightly to reach the duodenum. Nick Jon MD Chest CT 03/28/16 0836 Signed Impressions: Service Date/Time: Monday, March 28, 2016 09:57 - CONCLUSION: Development areas of air bronchograms and consolidation more prominent in the right and left posterior basilar segments of the lower lobes. ET tube above the chanelle. Bernard Hartman MD CT Angiography 03/24/16 1121 Signed Impressions: Service Date/Time: Thursday, March 24, 2016 12:47 - CONCLUSION: 1. There is respiratory motion artifact but no PE is identified through most of the segmental level pulmonary arteries. 2. Mildly enlarged main pulmonary artery may indicate pulmonary arterial hypertension. 3. 11 mm left lower lobe noncalcified pulmonary nodule. Suggest correlation with any prior imaging studies that could confirm longer-term stability. If none are available consider short-term followup noncontrast chest CT in approximately 3 months. Ubaldo Rodas MD Objective Remarks GENERAL: 50-year-old morbidly obese male, with tracheostomy, alert and oriented and interactive SKIN: Integrity intact. Warm and dry. HEAD: Atraumatic. Normocephalic. EYES: Pupils equal round and slightly reactive about 3 millimeters bilaterally. ENT: Tracheostomy in situ no drainage or erythema around the site CARDIOVASCULAR: Distant heart sounds. RRR. S1, S2. No S4. Without murmur RESPIRATORY: Status post percutaneous tracheostomy. On mechanical ventilation, Breath sounds equal bilaterally. Diminished breath sounds due to body habitus. GASTROINTESTINAL: Abdomen soft, obese, nontender. Severe central obesity, PEG tube without erythema or drainage MUSCULOSKELETAL: Extremities with trace to 1+ nonpitting bilateral lower extremity edema. NEUROLOGICAL: Alert, Follows commands, moves extremities 4. Date of Insertion: May 03, 2016 Date of Insertion: Apr 02, 2016 Date of Removal: May 03, 2016 Line: PICC Side: Left Location: Antecubital A/P Assessment and Plan Neuro/Psych: Likely SERENITY Toxic metabolic encephalopathy-resolved Continue Conway 5/325mg every 12hrs scheduled - attempt to wean fentanyl patch 25 micrograms every 72 hours Seroquel 25mg BID initiated 3/3 Lyrica 50 mg by mouth daily for neuropathy On oxycodone 5 mg by mouth every 6 hours when necessary pain 7-10 Baclofen 10 milligrams every 12 Acetaminophen for fever Pulm: Acute hypercarbic hypoxemic respiratory failure JACOB OHS History of staph aureus pneumonia/HCAP ARDS Tracheostomy exchange to #6 Shiley fenestrated cuffed on 05/27 Currently on T piece trials as tolerated Ventilator bundle Bronchial dilator therapy every 6 hours With Atrovent nebs every 2 hours when necessary dyspnea CV: Monitor HR and BP keep MAP>65mmHg 2-D echo 03/26 EF 60%. No regional wall motion abnormality. Mild MR/TR. /FEN: Monitor renal function, I/O's, electrolytes replacement per protocol. GI: Constipation-resolved Moderate protein calorie malnutrition Nausea and vomiting Continue oral diet starting 05/29 Protonix 40mg daily Senna and Colace twice a day PEG tube placement- 05/03 Zofran 4 mg every 6 hours when necessary ID: Staph aureus pneumonia - resolved Pertinent culture 05/27 - sputum - MSSA 04/27 - pansensitive staph aureus 04/27 blood cultures 2 negative 04/25 - urine -no growth 04/19 - blood cultures 2 out of 4 - staph aureus 04/19 - sputum - staph aureus 04/08 - sputum - staph aureus 04/03 - sputum - staph aureus 03/30 - sputum- -staph aureus 03/27 - sputum - staph aureus 03/26 - blood - staph hominis On vancomycin 2 g IV every 12 are since 04/19 - 04/29 Azactam 04/27 through 04/29 Heme: Leukocytosis Monitor CBC/coags Monitor WBC labs every 3 days, unless clinically indicated Endo: Diabetes mellitus SSI for glycemic control with sliding scale insulin every 4 hours Levemir insulin 35 U Q12 currently on hold. MSK Morbid obesity Weight loss encouraged DVT, GI prophylaxis -Bilateral lower extremity SCDs. IV Protonix 40 mg daily. Lovenox 40 mg sq BID LINES: -Left upper extremity PICC line placed 04/15-05/04. Peripheral IVs x 2 Critical Care: The total care time was 35 minutes. Time to perform other separately billable procedures was not included in the critical care time. Codey Florentino MD Jun 03, 2016 13:22
--- NOTE | 2016-06-03 18:48 | HHI.PR ---
Subjective Remarks off THE VENTILATOR ALERT RESPONDS APPROPRIATELY Objective Vital Signs Date Time Temp Pulse Resp B/P Pulse Ox O2 Delivery O2 Flow Rate FiO2 06/03/16 18:08 95 06/03/16 16:06 98.6 88 27 108/57 95 06/03/16 13:55 31 06/03/16 12:12 98.8 92 43 100/40 94 06/03/16 10:58 96 T-piece 5.00 40 06/03/16 10:30 16 06/03/16 10:10 104 06/03/16 08:30 98.9 87 30 125/57 95 06/03/16 08:28 96 40 06/03/16 08:00 104 06/03/16 07:15 95 Mechanical Ventilator 40 06/03/16 06:00 97 06/03/16 04:00 97 06/03/16 04:00 40 06/03/16 04:00 98.1 98 24 125/67 96 06/03/16 03:21 95 40 06/03/16 02:00 90 06/03/16 00:36 100 40 06/03/16 00:00 99.0 90 26 118/58 96 06/03/16 00:00 40 06/03/16 00:00 90 06/02/16 23:20 96 40 06/02/16 22:00 96 06/02/16 20:00 104 06/02/16 20:00 40 06/02/16 20:00 99.0 104 34 116/57 100 06/02/16 19:55 98 T-piece 5.00 40 06/02/16 19:00 96 T-Piece 40 I/O 06/02/16 06/02/16 06/02/16 06/03/16 06/03/16 06/03/16 07:00 15:00 23:00 07:00 15:00 23:00 Intake Total 480 ml 750 ml 600 ml 500 ml 720 ml Output Total 725 ml 350 ml 800 ml 800 ml 1000 ml Balance -245 ml 400 ml -200 ml -300 ml -280 ml Intake Oral 480 ml 750 ml 600 ml 500 ml 620 ml Other 100 ml Output Urine Total 725 ml 350 ml 800 ml 800 ml 1000 ml # Bowel Movements 0 1 0 0 0 Result Diagram: 06/01/16 04206/[id number]/16425 Objective Remarks GENERAL: SKIN: Warm and dry. HEAD: Atraumatic. Normocephalic. EYES: Pupils equal and round. No scleral icterus. No injection or drainage. ENT: No nasal bleeding or discharge. Mucous membranes pink and moist. NECK: Trachea midline. No JVD. CARDIOVASCULAR: Regular rate and rhythm. RESPIRATORY: No accessory muscle use. Clear to auscultation. Breath sounds equal bilaterally. GASTROINTESTINAL: Abdomen soft, non-tender, nondistended. Hepatic and splenic margins not palpable. MUSCULOSKELETAL: Extremities without clubbing, cyanosis, or edema. No obvious deformities. NEUROLOGICAL: Awake and alert. No obvious cranial nerve deficits. Motor grossly within normal limits. Five out of 5 muscle strength in the arms and legs. Normal speech. PSYCHIATRIC: Appropriate mood and affect; insight and judgment normal. Assessment and Plan Assessment and Plan OFF THE VENTILATOR NO ON TPIECE RESPIRATORY FAILURE SEPSIS RESOLVED ARDS JACOB/CSA S/P TRACH. PLAN PULM TOILET INCREASE Activity ON TPIECE Orlando Perry MD Jun 03, 2016 18:48
[2016-06-04] VITALS (14 sets, daily range): BP systolic 110–162; BP diastolic 57–70; PULSE 89–100; RESP 20–30; TEMP 98–98.8; O2SAT 92–98
[2016-06-04] MEDS: ARTIFICIAL TEARS OPTH SOLN 15 ML BTL EACH EYE SCH ×6 (02:00→21:54)
[2016-06-04] MEDS: RESP: ALBUTEROL 2.5 MG/IPRATROPIUM 0.5 MG NEB (SCH) NEB ×4 (04:48→20:14)
[2016-06-04] MEDS: FREE WATER G-TUBE SCH ×4 (06:00→18:14)
[2016-06-04] MEDS: INSULIN ASPART SUPPLEMENTAL SCALE SQ SCH ×4 (06:49→20:27)
[2016-06-04] MEDS: ENOXAPARIN SODIUM 40 MG/0.4 ML SYRINGE SQ SCH ×2 (06:49→18:12)
[2016-06-04] MEDS: CHLORHEXIDINE 0.12% (ORAL KIT) 15 ML CUP MT SCH ×2 (08:00→20:00)
[2016-06-04] MEDS: DOCUSATE SODIUM 100 MG/10 ML UDC PO SCH ×2 (08:56→20:26)
[2016-06-04] MEDS: LACTOBACILLUS ACIDOPHILUS TAB PO SCH ×3 (08:57→18:13)
[2016-06-04] MEDS: fentaNYL 25 MCG/HR PATCH TD SCH (08:57)
[2016-06-04] MEDS: ACETAMINOPHEN/HYDROcodone 325 MG/5 MG TAB PO SCH ×2 (08:57→20:26)
[2016-06-04] MEDS: SENNOSIDES SYRUP 8.8 MG/5 ML CUP PO/TUBE SCH ×2 (08:57→20:26)
[2016-06-04] MEDS: REMOVE OLD PATCH T-DERMAL SCH (08:57)
[2016-06-04] MEDS: PANTOPRAZOLE SOD 40 MG DELAYED RELEASE TAB PO SCH (08:58)
[2016-06-04] MEDS: BACLOFEN 10 MG TAB PO SCH ×2 (08:58→20:26)
[2016-06-04] MEDS: QUEtiapine FUMARATE 25 MG TAB PO SCH ×2 (08:58→20:27)
[2016-06-04] MEDS: POTASSIUM CHLORIDE 10 MEQ CONTROLLED RELEASE TAB PO SCH (08:58)
[2016-06-04] MEDS: POLYETHYLENE GLYCOL 17 GM PKG PO SCH ×2 (08:58→20:26)
[2016-06-04] MEDS: BETAMETHASONE/CLOTRIMAZOLE CREAM 15 GM TOPICAL SCH ×2 (08:59→20:27)
[2016-06-04] MEDS: NYSTATIN 100,000 U/GM PWD 15 GM BTL TOPICAL SCH ×2 (08:59→20:27)
[2016-06-04] MEDS: BENEPROTEIN POWDER 1 PACK G-TUBE SCH ×3 (09:01→18:14)
[2016-06-04] MEDS: SODIUM CHLORIDE 0.9% FLUSH 5 ML FLUSH IVF SCH (09:02)
[2016-06-04] MEDS: PREGABALIN 25 MG CAP PO SCH (09:05)
--- NOTE | 2016-06-04 13:12 | PD.TRANSFR ---
Transfer Summary Admission Date Mar 24, 2016 at 16:02 Admitting Diagnosis hypoxia, rule out pulmonary hypertension, Diagnoses: (1) Acute hypercapnic respiratory failure Diagnosis: Principal (2) Staphylococcus aureus pneumonia Diagnosis: Principal (3) Encephalopathy Diagnosis: Principal (4) JACOB (obstructive sleep apnea) Diagnosis: Secondary (5) Diabetes mellitus type 2 in obese Diagnosis: Secondary (6) Morbid obesity with BMI of 50.0-59.9, adult Diagnosis: Secondary (7) Obesity hypoventilation syndrome Diagnosis: Secondary Transfer Summary/Subjective Patient is a 50 years old obese male with past medical history significant for undiagnosed sleep apnea, super morbid obesity, type 2 diabetes was brought to the emergency department on 03/24/16 after feeling light headed and dizzy. On presentation here was found to be hypoxemic and ABG showed severe hypoxemia and hypercarbia. For a recent driving physical he was diagnosed with low oxygen saturations. Patient's oxygen saturation the ED was in the low 80s, which was confirmed on ABG with a oxygen saturation of 78% and PO2 of 46. CTA negative for PE. Patient was initiated on BiPAP therapy with consult to pulmonary Dr. Crane. His oxygenation improved but he continued to be hypercapnic. Today a.m. on nasal cannula his pH was 7.26 and PCO2 was increased at 99, patient was somnolent was placed back on BiPAP and repeat ABG at noon showed pH 7.26 PCO2 98 and pO2 70. This was on 16/02 BiPAP with FiO2 50%. Critical care was consulted. On my evaluation patient is somnolent but wakes up easily. I reduced the PEEP on BiPAP from 12-7 to facilitate better ventilation. A repeat ANG showed only minimal improvement, so decision made to intubate patient. Glidescope with #4 blade was used. Only propofol was used for induction. Initially I had a Grade 1-2 view, but I was unable to pass tube through the vocal cord to trachea in two attempts. Tube slipped out of Laryngeal opening both times. Dr aGrrett intubated patient after NM paralysis with succinylcholine. Post intubation ABG showed improvement in hypercapnia and oxygenation. 03/27/16: Patient remains intubated heavily sedated with propofol and fentanyl. Remained severely hypoxemic on 100% FiO2, PEEP12, chest x-ray shows bibasilar infiltrates. Flagyl added. We'll give 1 dose of vancomycin-Adjust antibiotics according to cultures. Patient super morbid obesity may prevent Prone therapy 03/28: Remains hypoxic but ABG shows marginal improvement in oxygenation. WBC increasing 20.1 today. Start vancomycin scheduled. 03/29: Oxygenation is slightly improved. FiO2 reduced to 50% today. Chest x- ray remains unchanged. On sedation hold patient does wake up and follow commands. WBC count remains at 20 03/30 No acute events overnight. Sedated with Diprivan and Fentanyl. Had T: 100.1 at 4 am. WBC trending down 15.9 today from 20. 03/31 Patient remains sedated with Diprivan, Fentanyl and intubated. Tmax 100.1. Patient required increase O2 overnight now on ACV with PEEP: 12 and FIO2 70%. 04/01: Tmax 99.7. No bowel movement since admission. Patient has bowel sounds. Arousable on the ventilator. We'll attempt prone the patient paralyzed to increase oxygenation status. 04/02: MAXIMUM TEMPERATURE 100.9. Currently 97.7. 5 10 cc stools overnight. Placed on Roto prone yesterday. Saturations currently 94% on Flolan. Diuresed overnight. Creatinine still within normal limits. 04/03: Tmax 101. Currently 99.1. Positive BM. Did not tolerate not being unprone this AM. Saturations much improved prone. Tolerating tube feeding. 04/04: Tmax 100.8. Currently 98.8. +2 L past 24 hours. Attempt to on prone today. Positive BM. C. difficile negative. Remains paralyzed. 04/05: Remains sedated, orally intubated on neuromuscular blockade on mechanical ventilation. Remains on Rota prone bed. On insulin drip. 04/06: Remains sedated, orally intubated on neuromuscular blockade, on mechanical ventilation. Remains on Rota prone bed. Insulin drip continues. 04/07 Patient remains on Rotoprone bed sedated with Diprivan, Versed, Fentanyl in addition patient is on Nimbex. Afebrile. On Insulin drip 5u/hr. 04/08 Patient remains sedated and intubated and on Nimbex. Off insulin drip. On PRVC/AC with RR 15, TV 550, IT: 1.65, PEEP: 15 and FIO2 100%. T: 100.2 at 4 am. 04/09 Patient is sedated, intubated and remains on neuromuscular blockade. Vent setting unchanged. afebrile. 04/10 Patient remains sedated and intubated and on Nimbex. On PRVC/AC, RR 15, TV 500, PEEP: 15, FIO2 90%, IT:1.65, on Flolan drip. Remains on Rotoprone bed. 04/11 minimal improvement in oxygenation, FiO2 now at 75 - continue to improve oxygenation, worsening CXR 04/13/10 continue to improve oxygenation DC'd prone position last night improving oxygenation, Nimbex discontinued as well as prone position 04/16 Patient is sedated with Versed and Fentanyl and intubated. Off rotoprone bed. On PRVC/AC RR 15, TV 550, IT 1.65, PEEP:15, FIO2 50%. 04/17 Patient remains sedated with Versed and Fentanyl. Afebrile, tolerating tube feeds 04/18 No acute events overnight Sedated and intubated. Afebrile. On PRVC/AC RR 15 , TV 550, IT 1.65, PEEP:15, FIO2 60% 04/19: Spiking fever up to 101, pancultured and 1 dose of vancomycin given by ID. On weaning doses of Flolan. FiO2 down to 50% I have reduced PEEP to 14. Remains critically ill 04/20: No fever. Sputum cx with Staph -S pending. Fio2 50% PEEP remains at 14. TV increased to 650 to improve lung recruitment. On weaning dose of Flolan-DC after current bag 04/21:Afebrile. Hyponatremia resolving, the patient will be placed on free water flushes. 04/22:The patient had an episode of acute desaturation requiring FiO2 increased to 90%. Stat chest x-ray stat ABG aggressive pulmonary toileting and suctioning , resolution of symptoms FiO2 now 55%. ABGs within normal limits. 04/23: Tmax 99.5. Currently afebrile. O2 sat 50%. PEEP down to 13. One small bowel movement overnight. 04/24: Currently afebrile. O2 sat 45%. PEEP to 12. One BM. Tolerating tube feeds. 04/25: Afebrile. PEEP down to 11. Positive BM. Tolerating tube feeds. Awake on the ventilator with eyes open. 04/26: Afebrile. PEEP down to 10. Time to feeding. Awake and alert eyes open. 04/27: Suspected fever overnight. One bowel movement documented. Will decreased PEEP to 9. Awake and alert and follows commands. 04/28: Tmax 99.3. Currently afebrile. FiO2 increased to 70%. PEEP to 10. Awake and does follow commands. Positive BM 4 yesterday. 04/29: FiO2 down to 55%. Peak systolic 10. Awake and does follow commands. Positive BM 1 yesterday. Tolerating tube feeding. 04/30: No acute issues overnight . The patient continues to be sedated with plans for tracheostomy in the OR today. The patient follows commands when on sedation vacation. 05/01: Postop day 1 post tracheostomy tube placement, no issues overnight. Plan for CPAP trials today. 05/02: Afebrile. The patient continues on CPAP trial 15/5 , FiO2 .45%. The patient alert and responsive this a.m., continues on Precedex and fentanyl infusion. By mouth narcotics, and fentanyl patch instituted to transition all fentanyl infusion. PEG tube placement pending. 05/03: The patient's fentanyl infusion was discontinued last evening. Multimodal analgesia initiated. Patient continues on Precedex infusion, GCS 14 T. Plans today for PEG placement later on this afternoon. No acute issues overnight. 05/04 Tmax 101.0. The patient's PICC line was removed, peripheral IVs initiated. Blood, urine and sputum cultures obtained. Methylprednisolone continues to be weaned currently at 20 mg daily. Plan for weaning of Precedex infusion off today. Seroquel 25 mg twice a day added to medication regimen. The patient continues on CPAP trials. 05/05: Tmax 99.1. Overnight the patient was maintained on CPAP trials of 15/5/40% , the patient's respiratory rate continues to be low 30s, tolerated well. The sake early this a.m. the patient was noticed to have a episode of nausea and vomiting Zofran instituted. The patient continues on scheduled Reglan TID. Blood , sputum and urine cultures were obtained yesterday secondary to elevated temperature awaiting results. 05/06: The patient remains on T piece greater than 48 hours. The patient is alert oriented and cooperative. Trach site without erythema or drainage. Patient was noticed over the last 12 hours to have multiple bowel movements or in the night. Will D/C MiraLAX, lactulose and Reglan will be discontinued. Plan for possible transfer to LTAC facility. 05/07 no acute issues overnight tolerating TPs CCM reconsulted on 05/27 shortly after midnight rapid response team was called due to patient's respiratory distress and hypercarbic respiratory failure with hypoxemia and cyanosis 05/27: Tracheostomy was exchanged this morning to a #6 Shiley fenestrated cuffed. Currently on PRVC with PEEP of 10. Saturations are much improved. Awake and alert and following commands. Requesting diet. 05/28: Awake and alert. On mechanical ventilation via tracheostomy. Following commands. 05/29: Awake and alert. On mechanical ventilation via tracheostomy. Tolerating PO diet. Following commands. 05/30: Awake and alert. On mechanical ventilation via tracheostomy. Tolerating by mouth diet. Following commands. 05/31: Remains on mechanical ventilation via tracheostomy. Tolerating C Pap/ pressure support. Following commands. Tolerating by mouth diet. 06/01: Remains on mechanical ventilation via tracheostomy. Awake and alert. Tolerated C Pap and pressure support however gets extremely tachypneic on dropping pressure-support to +5. Tolerating by mouth diet 06/02: Tmax 99.5. Currently 99. Currently on T piece trial. Condom catheter placed. 06/03: Currently T piece trial. Saturations around 98 %. Appears comfortable. He is in no acute distress. No issues overnight 06/04: Patient got up to the side of the bed today. Tolerating TPs last 24 hours. Tolerating by mouth diet. No issues reported. Lab work ordered for today Objective Vital Signs Date Time Temp Pulse Resp B/P Pulse Ox O2 Delivery O2 Flow Rate FiO2 06/04/16 08:31 92 T-piece 40 06/04/16 08:00 98.4 98 21 119/66 06/03/16 19:55 5.00 Intake and Output 06/03/16 06/03/16 06/04/16 08:00 16:00 00:00 Intake Total 500 ml 720 ml 600 ml Output Total 800 ml 1000 ml 900 ml Balance -300 ml -280 ml -300 ml Result Diagram: 06/01/16 0426 06/01/16 0426 Imaging Last Impressions Chest X-Ray 05/28/16 0600 Signed Impressions: Service Date/Time: Saturday, May 28, 2016 04:49 - CONCLUSION: Unchanged bibasilar densities. Wale Dalal MD Liver Ultrasound 05/09/16 0000 Signed Impressions: Service Date/Time: Monday, May 09, 2016 22:28 - CONCLUSION: 1. Enlarged, fatty liver. 2. Small stones or tumefactive sludge adherent to one of the gallbladder arcos. 3. Splenomegaly. 4. Pancreas is obscured by overlying bowel gas and patient's body habitus. Arthur Kennedy MD Abdomen X-Ray 05/01/16 0000 Signed Impressions: Service Date/Time: Sunday, May 01, 2016 17:28 - CONCLUSION: No evidence of obstruction. Feeding tube overlies the distal stomach, May have to be advanced slightly to reach the duodenum. Nick Jon MD Chest CT 03/28/16 0836 Signed Impressions: Service Date/Time: Monday, March 28, 2016 09:57 - CONCLUSION: Development areas of air bronchograms and consolidation more prominent in the right and left posterior basilar segments of the lower lobes. ET tube above the chanelle. Bernard Hartman MD CT Angiography 03/24/16 1121 Signed Impressions: Service Date/Time: Thursday, March 24, 2016 12:47 - CONCLUSION: 1. There is respiratory motion artifact but no PE is identified through most of the segmental level pulmonary arteries. 2. Mildly enlarged main pulmonary artery may indicate pulmonary arterial hypertension. 3. 11 mm left lower lobe noncalcified pulmonary nodule. Suggest correlation with any prior imaging studies that could confirm longer-term stability. If none are available consider short-term followup noncontrast chest CT in approximately 3 months. Ubaldo Rodas MD Objective Remarks GENERAL: 50-year-old morbidly obese male, with tracheostomy, alert and oriented and interactive SKIN: Integrity intact. Warm and dry. HEAD: Atraumatic. Normocephalic. EYES: Pupils equal round and slightly reactive about 3 millimeters bilaterally. ENT: Tracheostomy in situ no drainage or erythema around the site CARDIOVASCULAR: Distant heart sounds. RRR. S1, S2. No S4. Without murmur RESPIRATORY: Status post percutaneous tracheostomy. On mechanical ventilation, Breath sounds equal bilaterally. Diminished breath sounds due to body habitus. GASTROINTESTINAL: Abdomen soft, obese, nontender. Severe central obesity, PEG tube without erythema or drainage MUSCULOSKELETAL: Extremities with trace to 1+ nonpitting bilateral lower extremity edema. NEUROLOGICAL: Alert, Follows commands, moves extremities 4. 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 Toxic metabolic encephalopathy-resolved Continue [place] 5/325mg every 12hrs scheduled Fentanyl patch 25 micrograms every 72 hours Seroquel 25mg BID initiated 05/04 Lyrica 50 mg by mouth daily for neuropathy On oxycodone 5 mg by mouth every 6 hours when necessary pain 7-10 Baclofen 10 milligrams every 12 Acetaminophen for fever Pulm: Acute hypercarbic hypoxemic respiratory failure-resolved JACOB O[facility] History of staph aureus pneumonia/HCAP ARDS Tracheostomy exchange to #6 Shiley fenestrated cuffed on 05/27 Currently on T piece trials as tolerated Ventilator bundle Bronchial dilator therapy every 6 hours With Atrovent nebs every 2 hours when necessary dyspnea Pulmonary Dr. Crane CV: Monitor HR and BP keep MAP>65mmHg 2-D echo 03/26 EF 60%. No regional wall motion abnormality. Mild MR/TR. /FEN: Monitor renal function, I/O's, electrolytes replacement per protocol. GI: Constipation-resolved Moderate protein calorie malnutrition Nausea and vomiting Continue oral diet starting 05/29 Protonix 40mg daily Senna and Colace twice a day PEG tube placement- 05/03 Zofran 4 mg every 6 hours when necessary ID: Staph aureus pneumonia - resolved Pertinent culture 05/27 - sputum - MSSA 04/27 - pansensitive staph aureus 04/27 blood cultures 2 negative 04/25 - urine -no growth 04/19 - blood cultures 2 out of 4 - staph aureus 04/19 - sputum - staph aureus 04/08 - sputum - staph aureus 04/03 - sputum - staph aureus 03/30 - sputum- -staph aureus 03/27 - sputum - staph aureus 03/26 - blood - staph hominis On vancomycin 2 g IV every 12 are since 04/19 - 04/29 Azactam 04/27 through 04/29 Heme: Leukocytosis Monitor CBC/coags Monitor WBC labs every 3 days, unless clinically indicated. Repeat today Endo: Diabetes mellitus SSI for glycemic control with sliding scale insulin every 4 hours Levemir insulin 35 U Q12 currently on hold. MSK Morbid obesity Weight loss encouraged DVT, GI prophylaxis -Bilateral lower extremity SCDs. IV Protonix 40 mg daily. Lovenox 40 mg sq BID LINES: -Left upper extremity PICC line placed 04/15-05/04. Peripheral IVs x 2 Critical Care: Level 3 H consulted to assume care am PT OOB up to stretcher chair Baltazar Conner MD Jun 04, 2016 13:12
--- NOTE | 2016-06-04 15:17 | HHI.PR ---
Subjective Remarks off THE VENTILATOR ALERT RESPONDS APPROPRIATELY le edsma Objective Vital Signs Date Time Temp Pulse Resp B/P Pulse Ox O2 Delivery O2 Flow Rate FiO2 06/04/16 14:00 90 06/04/16 12:00 98.5 95 20 128/61 93 06/04/16 12:00 95 06/04/16 10:00 98 06/04/16 08:31 92 T-piece 40 06/04/16 08:00 98.4 98 21 119/66 93 06/04/16 08:00 97 06/04/16 08:00 93 T-Piece 40 06/04/16 06:00 93 06/04/16 04:00 98.6 93 23 119/65 96 06/04/16 04:00 93 06/04/16 02:00 89 06/04/16 00:00 98.5 98 30 110/57 94 06/04/16 00:00 98 06/03/16 22:00 106 06/03/16 20:00 98.7 98 33 122/58 93 06/03/16 20:00 98 06/03/16 19:55 93 T-piece 5.00 40 06/03/16 18:08 95 06/03/16 16:06 98.6 88 27 108/57 95 I/O 06/03/16 06/03/16 06/03/16 06/04/16 06/04/16 06/04/16 07:00 15:00 23:00 07:00 15:00 23:00 Intake Total 500 ml 720 ml 600 ml 200 ml 760 ml Output Total 800 ml 1000 ml 900 ml 1300 ml 451 ml Balance -300 ml -280 ml -300 ml -1100 ml 309 ml Intake Oral 500 ml 620 ml 600 ml 660 ml Tube Irrigant 200 ml 100 ml Other 100 ml Output Urine Total 800 ml 1000 ml 900 ml 1300 ml 450 ml Stool Total 1 ml # Voids 2 # Bowel Movements 0 0 Result Diagram: 06/01/16 0426 06/01/16 042 Objective Remarks GENERAL: SKIN: Warm and dry. HEAD: Atraumatic. Normocephalic. EYES: Pupils equal and round. No scleral icterus. No injection or drainage. ENT: No nasal bleeding or discharge. Mucous membranes pink and moist. NECK: Trachea midline. No JVD. CARDIOVASCULAR: Regular rate and rhythm. RESPIRATORY: No accessory muscle use. Clear to auscultation. Breath sounds equal bilaterally. GASTROINTESTINAL: Abdomen soft, non-tender, nondistended. Hepatic and splenic margins not palpable. MUSCULOSKELETAL: Extremities without clubbing, cyanosis, or edema. No obvious deformities. NEUROLOGICAL: Awake and alert. No obvious cranial nerve deficits. Motor grossly within normal limits. Five out of 5 muscle strength in the arms and legs. Normal speech. PSYCHIATRIC: Appropriate mood and affect; insight and judgment normal. Assessment and Plan Assessment and Plan OFF THE VENTILATOR NO ON TPIECE RESPIRATORY FAILURE SEPSIS RESOLVED ARDS JACOB/CSA S/P TRACH. PLAN PULM TOILET INCREASE Activity US LE pending ON TPIECE Orlando Perry MD Jun 04, 2016 15:17
[2016-06-04 16:10] LABS: AUTOMATED NEUTROPHIL # 13.7 TH/MM3 (1.8-7.7); BASOPHIL # 0.1 TH/MM3 (0-0.2); BASOPHIL % 0.5 % (0.0-2.0); EOSINOPHIL # 0.4 TH/MM3 (0-0.4); EOSINOPHIL % 2.1 % (0.0-4.0); HEMATOCRIT 33.4 % (39.0-51.0); LYMPH % 13.4 % (9.0-44.0); LYMPHOCYTE # 2.3 TH/MM3 (1.0-4.8); MEAN CELL VOLUME 84.9 FL (80.0-100.0); MEAN CORPUSCULAR HEMOGLOBIN 26.8 PG (27.0-34.0); MEAN CORPUSCULAR HGB CONC 31.6 % (32.0-36.0); MONO % 5.2 % (0.0-8.0); NEUT % 78.8 % (16.0-70.0); PLATELET COUNT 492 TH/MM3 (150-450); RED BLOOD COUNT 3.93 MIL/MM3 (4.50-5.90); WHITE BLOOD COUNT 17.4 TH/MM3 (4.0-11.0)
[2016-06-04 16:17] LABS: HEMO FLAGS AUTO DIFF
--- NOTE | 2016-06-04 16:21 | RADRPT ---
EXAM DATE/TIME: 06/04/2016 14:54 [facility] COMPARISON: US ABDOMEN - LIVER, May 09, 2016, 22:28. INDICATIONS : Left leg pain. MEDICAL HISTORY : Sleep apnea. Diabetes. Morbidly obese. SURGICAL HISTORY : Carpal tunnel surgery. ENCOUNTER: Initial ACUITY: 1 day PAIN SCORE: 2/10 LOCATION: Left leg. TECHNIQUE: Venous ultrasound of the leg was performed from the inguinal ligament to the proximal calf. Real-trina e, color Doppler and spectral tracing, compression and augmentation techniques were used. FINDINGS: There is normal compressibility of the deep venous system from the inguinal region to the proximal ca lf. No echogenic clot is seen in the lumen of the common femoral, femoral, popliteal, and posterior tibial veins. There is a normal response of the venous system to proximal and distal augmentation an d respiration. CONCLUSION: 1. No DVT identified. Dc Barton MD on June 04, 2016 at 16:19 Board Certified Radiologist. This report was verified electronically.
[2016-06-04 16:26] LABS: ANION GAP 8 MEQ/L (5-15); AST (GOT) 15 U/L (15-37); BICARBONATE 34.9 MEQ/L (21.0-32.0); BLOOD UREA NITROGEN 8 MG/DL (7-18); CHLORIDE 95 MEQ/L (98-107); GLOMERULAR FILTRATION RATE 209 ML/MIN (>89); MAGNESIUM 1.9 MG/DL (1.5-2.5); POTASSIUM 3.8 MEQ/L (3.5-5.1); SODIUM (NA) 138 MEQ/L (136-145)
[2016-06-04 16:29] LABS: ALKALINE PHOSPHATASE 71 U/L (45-117); ALT (GPT) 32 U/L (12-78); TOTAL BILIRUBIN ADULT 0.3 MG/DL (0.2-1.0)
[2016-06-04 16:35] LABS: BANDS 6 % (0-6); EOSINOPHILS 2 % (0-4); NEUTROPHIL # MANUAL DIFF 12.9 TH/MM3 (1.8-7.7); POLYS (SEG NEUTROPHILS) 68 % (16-70); WBC DIFF SAMPLE 100
[2016-06-04 16:36] LABS: PLATELET ESTIMATE SMEAR HIGH (NORMAL); PLATELET MORPHOLOGY NORMAL (NORMAL); SCAN/DIFF FINAL DIFF MANUAL; STOMATOCYTES 1+ (NORMAL)
[2016-06-05] VITALS (11 sets, daily range): BP systolic 96–127; BP diastolic 61–71; PULSE 88–99; RESP 16–30; TEMP 98.5–99.3; O2SAT 90–99
[2016-06-05] MEDS: ARTIFICIAL TEARS OPTH SOLN 15 ML BTL EACH EYE SCH ×6 (02:39→22:00)
[2016-06-05] MEDS: RESP: ALBUTEROL 2.5 MG/IPRATROPIUM 0.5 MG NEB (SCH) NEB ×4 (03:56→21:36)
[2016-06-05] MEDS: ENOXAPARIN SODIUM 40 MG/0.4 ML SYRINGE SQ SCH ×2 (05:14→18:00)
[2016-06-05] MEDS: FREE WATER G-TUBE SCH ×5 (05:14→22:25)
[2016-06-05] MEDS: INSULIN ASPART SUPPLEMENTAL SCALE SQ SCH ×4 (06:32→20:02)
[2016-06-05] MEDS: CHLORHEXIDINE 0.12% (ORAL KIT) 15 ML CUP MT SCH ×2 (08:00→22:23)
[2016-06-05] MEDS: PANTOPRAZOLE SOD 40 MG DELAYED RELEASE TAB PO SCH (08:36)
[2016-06-05] MEDS: POTASSIUM CHLORIDE 10 MEQ CONTROLLED RELEASE TAB PO SCH (08:36)
[2016-06-05] MEDS: DOCUSATE SODIUM 100 MG/10 ML UDC PO SCH ×2 (08:37→20:02)
[2016-06-05] MEDS: POLYETHYLENE GLYCOL 17 GM PKG PO SCH ×2 (08:37→20:02)
[2016-06-05] MEDS: SENNOSIDES SYRUP 8.8 MG/5 ML CUP PO/TUBE SCH ×2 (08:37→20:02)
[2016-06-05] MEDS: LACTOBACILLUS ACIDOPHILUS TAB PO SCH ×3 (08:37→18:00)
[2016-06-05] MEDS: ACETAMINOPHEN/HYDROcodone 325 MG/5 MG TAB PO SCH ×2 (08:37→22:34)
[2016-06-05] MEDS: BACLOFEN 10 MG TAB PO SCH ×2 (08:37→20:02)
[2016-06-05] MEDS: QUEtiapine FUMARATE 25 MG TAB PO SCH ×2 (08:37→20:02)
[2016-06-05] MEDS: PREGABALIN 25 MG CAP PO SCH (08:37)
[2016-06-05] MEDS: NYSTATIN 100,000 U/GM PWD 15 GM BTL TOPICAL SCH ×2 (08:44→20:03)
[2016-06-05] MEDS: BETAMETHASONE/CLOTRIMAZOLE CREAM 15 GM TOPICAL SCH ×2 (08:44→20:03)
--- NOTE | 2016-06-05 08:50 | HHI.PR ---
Subjective Remarks off THE VENTILATOR ALERT RESPONDS APPROPRIATELY le edema Objective Vital Signs Date Time Temp Pulse Resp B/P Pulse Ox O2 Delivery O2 Flow Rate FiO2 06/05/16 08:04 98.5 88 20 112/61 90 06/05/16 06:00 99 06/05/16 04:00 90 06/05/16 04:00 98.7 90 16 113/63 99 06/05/16 02:00 90 06/05/16 00:00 99.0 94 30 124/71 98 06/05/16 00:00 94 06/04/16 22:00 96 06/04/16 21:32 20 06/04/16 20:14 98 T-piece 6.00 40 06/04/16 20:00 94 06/04/16 20:00 98.8 94 26 162/70 94 06/04/16 19:00 94 T-Piece 40 06/04/16 18:00 100 06/04/16 16:00 98.0 92 26 129/58 94 06/04/16 16:00 92 06/04/16 14:00 90 06/04/16 12:00 98.5 95 20 128/61 93 06/04/16 12:00 95 06/04/16 10:00 98 I/O 06/04/16 06/04/16 06/04/16 06/05/16 06/05/16 06/05/16 07:00 15:00 23:00 07:00 15:00 23:00 Intake Total 200 ml 760 ml 1260 ml 500 ml Output Total 1300 ml 451 ml 700 ml 650 ml Balance -1100 ml 309 ml 560 ml -150 ml Intake Oral 660 ml 1200 ml 100 ml Tube Irrigant 200 ml 100 ml 0 ml 0 ml Other 60 ml 400 ml Output Urine Total 1300 ml 450 ml 700 ml 650 ml Stool Total 1 ml # Voids 2 # Bowel Movements 1 0 Result Diagram: 06/04/16 1535 06/04/16 1535 Objective Remarks GENERAL: SKIN: Warm and dry. HEAD: Atraumatic. Normocephalic. EYES: Pupils equal and round. No scleral icterus. No injection or drainage. ENT: No nasal bleeding or discharge. Mucous membranes pink and moist. NECK: Trachea midline. No JVD. CARDIOVASCULAR: Regular rate and rhythm. RESPIRATORY: No accessory muscle use. Clear to auscultation. Breath sounds equal bilaterally. GASTROINTESTINAL: Abdomen soft, non-tender, nondistended. Hepatic and splenic margins not palpable. MUSCULOSKELETAL: Extremities without clubbing, cyanosis, or edema. No obvious deformities. NEUROLOGICAL: Awake and alert. No obvious cranial nerve deficits. Motor grossly within normal limits. Five out of 5 muscle strength in the arms and legs. Normal speech. PSYCHIATRIC: Appropriate mood and affect; insight and judgment normal. Assessment and Plan Assessment and Plan OFF THE VENTILATOR NOW ON T PIECE RESPIRATORY FAILURE SEPSIS RESOLVED ARDS JACOB/CSA S/P TRACH. PLAN PULM TOILET INCREASE Activity US LE pending ON TPIECE Orlando Perry MD Jun 05, 2016 08:50
[2016-06-05] MEDS: BENEPROTEIN POWDER 1 PACK G-TUBE SCH ×3 (09:00→18:00)
[2016-06-05] MEDS: SODIUM CHLORIDE 0.9% FLUSH 5 ML FLUSH IVF SCH (09:00)
[2016-06-05] MEDS: SILVER SULFADIAZINE 1% CR 400 GM JAR TOPICAL SCH (09:00)
--- NOTE | 2016-06-05 16:54 | HHI.PR ---
Subjective Remarks Follow up for hypercarbic and hypoxemic respiratory failure. Mr. Leger is doing well. He is sitting in his bed and finished his lunch. Denies any fever, chills. Breathing well. Currently on T piece. Tolerating it well. Objective Vitals Vital Signs Date Time Temp Pulse Resp B/P Pulse Ox O2 Delivery O2 Flow Rate FiO2 06/05/16 12:41 99.0 90 20 118/66 94 06/05/16 12:00 90 06/05/16 09:40 20 06/05/16 09:04 94 T-Piece 40 06/05/16 08:47 94 T-piece 40 06/05/16 08:04 98.5 88 20 112/61 90 06/05/16 06:00 99 06/05/16 04:00 90 06/05/16 04:00 98.7 90 16 113/63 99 06/05/16 02:00 90 06/05/16 00:00 99.0 94 30 124/71 98 06/05/16 00:00 94 06/04/16 22:00 96 06/04/16 20:14 98 T-piece 6.00 40 06/04/16 20:00 94 06/04/16 20:00 98.8 94 26 162/70 94 06/04/16 19:00 94 T-Piece 40 06/04/16 18:00 100 I/O 06/04/16 06/04/16 06/04/16 06/05/16 06/05/16 06/05/16 07:00 15:00 23:00 07:00 15:00 23:00 Intake Total 200 ml 760 ml 1260 ml 500 ml Output Total 1300 ml 451 ml 700 ml 650 ml 750 ml Balance -1100 ml 309 ml 560 ml -150 ml -750 ml Intake Oral 660 ml 1200 ml 100 ml Tube Irrigant 200 ml 100 ml 0 ml 0 ml Other 60 ml 400 ml Output Urine Total 1300 ml 450 ml 700 ml 650 ml 750 ml Stool Total 1 ml # Voids 2 # Bowel Movements 1 0 Result Diagram: 06/04/16 1535 06/04/16 1535 Imaging Last Impressions Lower Extremity Ultrasound 06/04/16 0000 Signed Impressions: Service Date/Time: Saturday, June 04, 2016 14:54 - CONCLUSION: 1. No DVT identified. Dc Barton MD Chest X-Ray 05/28/16 0600 Signed Impressions: Service Date/Time: Saturday, May 28, 2016 04:49 - CONCLUSION: Unchanged bibasilar densities. Wale Dalal MD Liver Ultrasound 05/09/16 0000 Signed Impressions: Service Date/Time: Monday, May 09, 2016 22:28 - CONCLUSION: 1. Enlarged, fatty liver. 2. Small stones or tumefactive sludge adherent to one of the gallbladder arcos. 3. Splenomegaly. 4. Pancreas is obscured by overlying bowel gas and patient's body habitus. Arthur Kennedy MD Abdomen X-Ray 05/01/16 0000 Signed Impressions: Service Date/Time: Sunday, May 01, 2016 17:28 - CONCLUSION: No evidence of obstruction. Feeding tube overlies the distal stomach, May have to be advanced slightly to reach the duodenum. Nick Jon MD Chest CT 03/28/16 0836 Signed Impressions: Service Date/Time: Monday, March 28, 2016 09:57 - CONCLUSION: Development areas of air bronchograms and consolidation more prominent in the right and left posterior basilar segments of the lower lobes. ET tube above the chanelle. Bernard Hartman MD CT Angiography 03/24/16 1121 Signed Impressions: Service Date/Time: Thursday, March 24, 2016 12:47 - CONCLUSION: 1. There is respiratory motion artifact but no PE is identified through most of the segmental level pulmonary arteries. 2. Mildly enlarged main pulmonary artery may indicate pulmonary arterial hypertension. 3. 11 mm left lower lobe noncalcified pulmonary nodule. Suggest correlation with any prior imaging studies that could confirm longer-term stability. If none are available consider short-term followup noncontrast chest CT in approximately 3 months. Ubaldo Rodas MD Objective Remarks GENERAL: Alert, NAD. SKIN: Warm and dry. HEAD: Normocephalic. EYES: No scleral icterus. No injection or drainage. NECK: Supple, trachea midline. No JVD or lymphadenopathy. CARDIOVASCULAR: Regular rate and rhythm without murmurs, gallops, or rubs. RESPIRATORY: Moderate air movement. No accessory muscle use. on T piece. GASTROINTESTINAL: Abdomen soft, non-tender, nondistended. MUSCULOSKELETAL: No cyanosis. Trace edema in lower ext. BACK: Nontender without obvious deformity. No CVA tenderness. Procedures 06/03/2016 EGD with PEG placement Date of Insertion: May 03, 2016 Date of Insertion: Apr 02, 2016 Date of Removal: May 03, 2016 Line: PICC Side: Left Location: Antecubital A/P Problem List: (1) Acute hypercapnic respiratory failure ICD Code: J96.02 Status: Acute (2) Staphylococcus aureus pneumonia ICD Code: J15.211 Status: Acute (3) Encephalopathy ICD Code: G93.40 Status: Acute (4) JACOB (obstructive sleep apnea) ICD Code: G47.33 Status: Acute (5) Diabetes mellitus type 2 in obese ICD Code: E11.9 Status: Acute (6) Morbid obesity with BMI of 50.0-59.9, adult ICD Code: E66.01 Status: Acute (7) Obesity hypoventilation syndrome ICD Code: E66.2 Status: Acute Assessment and Plan Mr. Leger is a pleasant 50 year old male with a history of sleep apnea, morbid obesity, DM 2 who was admitted to the hospital on 03/24/2016 due to lightheadedness and dizziness. Initial work up indicated hypercarbia as well as hypoxemia. His O2 sat was 78% in the ED. CTA was negative for PE. He was started on BiPAP. However, due to unsatisfactory response, patient was intubated after neuromuscular paralysis using succinylcholine. Tracheostomy was done on 04/30/2016. Patient remained in the ICU until 05/07/2016. Patient went into acute respiratory failure again on 05/27/2016 and subsequently he was transferred back to ICU. Trach was exchanged on 05/27/2016 and he remained on mechanical ventillation. He was weaned off mechanical ventilation after tolerating CPAP trials. He was placed on T piece trial and tolerated that well. He was subsequently transferred to hospitalist service on 06/05/2016. - Acute respiratory failure mixed - hypercarbic and hypoxemic. - Probable obstructive sleep apnea - Obesity hypoventilation syndrome. - s/p Tracheostomy exchange to #6 Shiley fenestrated cuffed on 05/27/2016. - Continue T piece. Pulmonary following - Continue DuoNeb, Ipratropium neb treatments. - Transfer to the floor 06/05/2016. - Pneumonia with Staph Aureus - sputum cx positive for MSSA on 05/27/2016. 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 - Currently on Baclofen 10mg Q12h, Lyrica 50mg Qday, Seroquel 25mg BID, Fentanyl patch 25mcg, Oxycodone, [place] PRN - Will d/c Oxycodone - has not used it since 05/23/2016. - Diabetes mellitus type 2 - Currently on sliding scale insulin. Goal glucose 140-180. - Will start Levemir 5 units QHS and gradually titrate up as needed. - May need to add premeal coverage. - Consult CM for placement. Patient's insurance company has denied LTAC. Full code. Lovenox. Jody Briones DO Jun 05, 2016 16:54
[2016-06-06] VITALS: BP 111/67; PULSE 102; RESP 19; TEMP 98.6; O2SAT 95
[2016-06-06] MEDS: ARTIFICIAL TEARS OPTH SOLN 15 ML BTL EACH EYE SCH ×6 (02:00→22:00)
[2016-06-06] MEDS: FREE WATER G-TUBE SCH ×3 (06:00→17:07)
[2016-06-06] MEDS: RESP: ALBUTEROL 2.5 MG/IPRATROPIUM 0.5 MG NEB (SCH) NEB ×2 (06:00→08:29)
[2016-06-06] MEDS: ENOXAPARIN SODIUM 40 MG/0.4 ML SYRINGE SQ SCH ×2 (06:41→17:08)
[2016-06-06] MEDS: INSULIN ASPART SUPPLEMENTAL SCALE SQ SCH ×4 (06:41→20:01)
[2016-06-06 08:00] VITALS: BP 104/62; PULSE 85; RESP 16; TEMP 97.9; O2SAT 92
[2016-06-06] MEDS: CHLORHEXIDINE 0.12% (ORAL KIT) 15 ML CUP MT SCH ×2 (08:00→20:00)
[2016-06-06] MEDS: BETAMETHASONE/CLOTRIMAZOLE CREAM 15 GM TOPICAL SCH ×2 (09:00→20:01)
[2016-06-06] MEDS: NYSTATIN 100,000 U/GM PWD 15 GM BTL TOPICAL SCH ×2 (09:00→20:01)
[2016-06-06] MEDS: SODIUM CHLORIDE 0.9% FLUSH 5 ML FLUSH IVF SCH (09:00)
[2016-06-06] MEDS: BENEPROTEIN POWDER 1 PACK G-TUBE SCH ×3 (09:00→17:07)
[2016-06-06] MEDS: PANTOPRAZOLE SOD 40 MG DELAYED RELEASE TAB PO SCH (09:00)
[2016-06-06] MEDS: SILVER SULFADIAZINE 1% CR 400 GM JAR TOPICAL SCH ×2 (09:00→09:40)
[2016-06-06] MEDS: DOCUSATE SODIUM 100 MG/10 ML UDC PO SCH ×2 (09:38→19:59)
[2016-06-06] MEDS: QUEtiapine FUMARATE 25 MG TAB PO SCH ×2 (09:39→19:58)
[2016-06-06] MEDS: POTASSIUM CHLORIDE 10 MEQ CONTROLLED RELEASE TAB PO SCH (09:39)
[2016-06-06] MEDS: BACLOFEN 10 MG TAB PO SCH ×2 (09:39→19:59)
[2016-06-06] MEDS: PREGABALIN 25 MG CAP PO SCH (09:39)
[2016-06-06] MEDS: LACTOBACILLUS ACIDOPHILUS TAB PO SCH ×3 (09:40→17:08)
[2016-06-06] MEDS: ACETAMINOPHEN/HYDROcodone 325 MG/5 MG TAB PO SCH ×2 (09:40→19:59)
[2016-06-06] MEDS: POLYETHYLENE GLYCOL 17 GM PKG PO SCH ×2 (09:40→20:01)
[2016-06-06] MEDS: SENNOSIDES SYRUP 8.8 MG/5 ML CUP PO/TUBE SCH ×2 (09:40→19:59)
[2016-06-06 12:00] VITALS: BP 100/55; PULSE 96; RESP 16; TEMP 97.9; O2SAT 93
[2016-06-06 16:00] VITALS: BP 112/69; PULSE 91; RESP 17; TEMP 97.6; O2SAT 93
[2016-06-06 20:00] VITALS: BP 104/62; PULSE 100; RESP 20; TEMP 97.6; O2SAT 94
[2016-06-06] MEDS: INSULIN DETEMIR 100 UNITS/ML VIAL SQ SCH (20:00)
[2016-06-06 20:49] VITALS: O2SAT 95
--- NOTE | 2016-06-06 23:04 | HHI.PR ---
Subjective Remarks Follow up for hypercarbic and hypoxemic respiratory failure. Mr. Leger is doing well. Tolerating diet well. No acute concerns. Objective Vitals Vital Signs Date Time Temp Pulse Resp B/P Pulse Ox O2 Delivery O2 Flow Rate FiO2 06/06/16 20:49 95 T-piece 40 06/06/16 16:00 97.6 91 17 112/69 93 06/06/16 12:00 97.9 96 16 100/55 93 06/06/16 09:30 T-Piece 6.00 40 06/06/16 08:00 97.9 85 16 104/62 92 06/06/16 00:00 98.6 102 19 111/67 95 I/O 06/05/16 06/05/16 06/05/16 06/06/16 06/06/16 06/06/16 07:00 15:00 23:00 07:00 15:00 23:00 Intake Total 500 ml 240 ml 240 ml 740 ml Output Total 650 ml 750 ml 100 ml Balance -150 ml -750 ml 240 ml 240 ml 640 ml Intake Oral 100 ml 240 ml 240 ml 480 ml IV Total 0 ml Tube Irrigant 0 ml 60 ml Other 400 ml 200 ml Output Urine Total 650 ml 750 ml 100 ml # Voids 1 2 # Bowel Movements 0 2 0 Result Diagram: 06/04/16 1535 06/04/16 1535 Objective Remarks GENERAL: Alert, NAD. SKIN: Warm and dry. HEAD: Normocephalic. EYES: No scleral icterus. No injection or drainage. NECK: Supple, trachea midline. No JVD or lymphadenopathy. CARDIOVASCULAR: Regular rate and rhythm without murmurs, gallops, or rubs. RESPIRATORY: Moderate air movement. No accessory muscle use. on T piece. GASTROINTESTINAL: Abdomen soft, non-tender, nondistended. MUSCULOSKELETAL: No cyanosis. Trace edema in lower ext. BACK: Nontender without obvious deformity. No CVA tenderness. Procedures 06/03/2016 EGD with PEG placement Date of Insertion: May 03, 2016 Date of Insertion: Apr 02, 2016 Date of Removal: May 03, 2016 Line: PICC Side: Left Location: Antecubital A/P Problem List: (1) Acute hypercapnic respiratory failure ICD Code: J96.02 Status: Acute (2) Staphylococcus aureus pneumonia ICD Code: J15.211 Status: Acute (3) Encephalopathy ICD Code: G93.40 Status: Acute (4) JACOB (obstructive sleep apnea) ICD Code: G47.33 Status: Acute (5) Diabetes mellitus type 2 in obese ICD Code: E11.9 Status: Acute (6) Morbid obesity with BMI of 50.0-59.9, adult ICD Code: E66.01 Status: Acute (7) Obesity hypoventilation syndrome ICD Code: E66.2 Status: Acute Assessment and Plan Mr. Leger is a pleasant 50 year old male with a history of sleep apnea, morbid obesity, DM 2 who was admitted to the hospital on 03/24/2016 due to lightheadedness and dizziness. Initial work up indicated hypercarbia as well as hypoxemia. His O2 sat was 78% in the ED. CTA was negative for PE. He was started on BiPAP. However, due to unsatisfactory response, patient was intubated after neuromuscular paralysis using succinylcholine. Tracheostomy was done on 04/30/2016. Patient remained in the ICU until 05/07/2016. Patient went into acute respiratory failure again on 05/27/2016 and subsequently he was transferred back to ICU. Trach was exchanged on 05/27/2016 and he remained on mechanical ventillation. He was weaned off mechanical ventilation after tolerating CPAP trials. He was placed on T piece trial and tolerated that well. He was subsequently transferred to hospitalist service on 06/05/2016. - Acute respiratory failure mixed - hypercarbic and hypoxemic. - Probable obstructive sleep apnea - Obesity hypoventilation syndrome. - s/p Tracheostomy exchange to #6 Shiley fenestrated cuffed on 05/27/2016. - Continue T piece. Pulmonary following - Continue DuoNeb, Ipratropium neb treatments. - Pneumonia with Staph Aureus - sputum cx positive for MSSA on 05/27/2016. 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 - Currently on Baclofen 10mg Q12h, Lyrica 50mg Qday, Seroquel 25mg BID, Fentanyl patch 25mcg, [place] PRN - Discontinued Oxycodone - has not used it since 05/23/2016. - Diabetes mellitus type 2 - Currently on sliding scale insulin. Goal glucose 140-180. - Continue Levemir 5 units QHS and gradually titrate up as needed. - May need to add premeal coverage. - Consult CM for placement. Patient's insurance company has denied LTAC. Full code. Lovenox. Jody Briones DO Jun 06, 2016 23:04
[2016-06-07] VITALS (7 sets, daily range): BP systolic 101–128; BP diastolic 55–71; PULSE 89–100; RESP 16–20; TEMP 97.1–99.6; O2SAT 93–98
[2016-06-07] MEDS: FREE WATER G-TUBE SCH ×5 (00:20→22:12)
[2016-06-07] MEDS: ARTIFICIAL TEARS OPTH SOLN 15 ML BTL EACH EYE SCH ×6 (02:15→22:12)
[2016-06-07] MEDS: ENOXAPARIN SODIUM 40 MG/0.4 ML SYRINGE SQ SCH ×2 (06:16→16:18)
[2016-06-07] MEDS: INSULIN ASPART SUPPLEMENTAL SCALE SQ SCH ×4 (06:19→21:00)
[2016-06-07] MEDS: POLYETHYLENE GLYCOL 17 GM PKG PO SCH ×2 (07:41→22:10)
[2016-06-07] MEDS: DOCUSATE SODIUM 100 MG/10 ML UDC PO SCH ×2 (07:41→22:09)
[2016-06-07] MEDS: LACTOBACILLUS ACIDOPHILUS TAB PO SCH ×3 (07:41→16:18)
[2016-06-07] MEDS: QUEtiapine FUMARATE 25 MG TAB PO SCH ×2 (07:41→22:10)
[2016-06-07] MEDS: fentaNYL 25 MCG/HR PATCH TD SCH (07:42)
[2016-06-07] MEDS: BACLOFEN 10 MG TAB PO SCH ×2 (07:42→22:10)
[2016-06-07] MEDS: REMOVE OLD PATCH T-DERMAL SCH (07:42)
[2016-06-07] MEDS: POTASSIUM CHLORIDE 10 MEQ CONTROLLED RELEASE TAB PO SCH (07:42)
[2016-06-07] MEDS: ACETAMINOPHEN/HYDROcodone 325 MG/5 MG TAB PO SCH ×2 (07:43→22:10)
[2016-06-07] MEDS: PANTOPRAZOLE SOD 40 MG DELAYED RELEASE TAB PO SCH (07:43)
[2016-06-07] MEDS: PREGABALIN 25 MG CAP PO SCH (07:43)
[2016-06-07] MEDS: SILVER SULFADIAZINE 1% CR 400 GM JAR TOPICAL SCH (07:44)
[2016-06-07] MEDS: SENNOSIDES SYRUP 8.8 MG/5 ML CUP PO/TUBE SCH ×2 (07:44→21:00)
[2016-06-07] MEDS: BETAMETHASONE/CLOTRIMAZOLE CREAM 15 GM TOPICAL SCH ×2 (07:45→21:00)
[2016-06-07] MEDS: NYSTATIN 100,000 U/GM PWD 15 GM BTL TOPICAL SCH ×2 (07:45→21:00)
[2016-06-07] MEDS: CHLORHEXIDINE 0.12% (ORAL KIT) 15 ML CUP MT SCH ×2 (07:46→20:00)
[2016-06-07] MEDS: BENEPROTEIN POWDER 1 PACK G-TUBE SCH ×3 (07:46→16:18)
[2016-06-07] MEDS: SODIUM CHLORIDE 0.9% FLUSH 5 ML FLUSH IVF SCH (07:46)
--- NOTE | 2016-06-07 18:40 | HHI.PR ---
Subjective Remarks off THE VENTILATOR ALERT RESPONDS APPROPRIATELY le edema Objective Vital Signs Date Time Temp Pulse Resp B/P Pulse Ox O2 Delivery O2 Flow Rate FiO2 06/07/16 16:00 97.9 93 16 111/66 97 06/07/16 12:00 97.7 93 17 112/67 93 06/07/16 09:05 95 T-piece 5.00 40 06/07/16 08:00 97.1 100 19 128/71 93 06/06/16 20:49 95 T-piece 40 06/06/16 20:00 97.6 100 20 104/62 94 I/O 06/06/16 06/06/16 06/06/16 06/07/16 06/07/16 06/07/16 07:00 15:00 23:00 07:00 15:00 23:00 Intake Total 240 ml 740 ml 220 ml 240 ml 1225 ml Output Total 100 ml 850 ml 600 ml 400 ml 350 ml Balance 240 ml 640 ml -630 ml -360 ml 825 ml -350 ml Intake Oral 240 ml 480 ml 220 ml 240 ml 1225 ml IV Total 0 ml Tube Irrigant 60 ml Other 200 ml Output Urine Total 100 ml 850 ml 600 ml 400 ml 350 ml # Voids 2 # Bowel Movements 0 0 1 0 Result Diagram: 06/04/16 1535 06/04/16 1535 Objective Remarks GENERAL: SKIN: Warm and dry. HEAD: Atraumatic. Normocephalic. EYES: Pupils equal and round. No scleral icterus. No injection or drainage. ENT: No nasal bleeding or discharge. Mucous membranes pink and moist. NECK: Trachea midline. No JVD. CARDIOVASCULAR: Regular rate and rhythm. RESPIRATORY: No accessory muscle use. Clear to auscultation. Breath sounds equal bilaterally. GASTROINTESTINAL: Abdomen soft, non-tender, nondistended. Hepatic and splenic margins not palpable. MUSCULOSKELETAL: Extremities without clubbing, cyanosis, or edema. No obvious deformities. NEUROLOGICAL: Awake and alert. No obvious cranial nerve deficits. Motor grossly within normal limits. Five out of 5 muscle strength in the arms and legs. Normal speech. PSYCHIATRIC: Appropriate mood and affect; insight and judgment normal. Assessment and Plan Assessment and Plan OFF THE VENTILATOR NOW ON T PIECE RESPIRATORY FAILURE SEPSIS RESOLVED ARDS JACOB/CSA S/P TRACH. PLAN PULM TOILET INCREASE Activity US LE pending ON TPIECE [place] Juliuse MD Jun 07, 2016 18:40
[2016-06-07] MEDS: INSULIN DETEMIR 100 UNITS/ML VIAL SQ SCH (22:09)
--- NOTE | 2016-06-07 23:23 | HHI.PR ---
Subjective Remarks Follow up for hypercarbic and hypoxemic respiratory failure. Mr. Leger is doing well. No acute concerns. No fever, chills. Objective Vitals Vital Signs Date Time Temp Pulse Resp B/P Pulse Ox O2 Delivery O2 Flow Rate FiO2 06/07/16 21:49 98 T-piece 40 06/07/16 20:00 98.4 89 20 111/57 95 06/07/16 16:00 97.9 93 16 111/66 97 06/07/16 12:00 97.7 93 17 112/67 93 06/07/16 09:05 95 T-piece 5.00 40 06/07/16 08:00 97.1 100 19 128/71 93 I/O 06/06/16 06/06/16 06/06/16 06/07/16 06/07/16 06/07/16 07:00 15:00 23:00 07:00 15:00 23:00 Intake Total 240 ml 740 ml 220 ml 240 ml 1225 ml 100 ml Output Total 100 ml 850 ml 600 ml 400 ml 350 ml Balance 240 ml 640 ml -630 ml -360 ml 825 ml -250 ml Intake Oral 240 ml 480 ml 220 ml 240 ml 1225 ml IV Total 0 ml Tube Irrigant 60 ml Other 200 ml 100 ml Output Urine Total 100 ml 850 ml 600 ml 400 ml 350 ml # Voids 2 # Bowel Movements 0 0 1 0 Result Diagram: 06/04/16 1535 06/04/16 1535 Imaging Last Impressions Lower Extremity Ultrasound 06/04/16 0000 Signed Impressions: Service Date/Time: Saturday, June 04, 2016 14:54 - CONCLUSION: 1. No DVT identified. Dc Barton MD Chest X-Ray 05/28/16 0600 Signed Impressions: Service Date/Time: Saturday, May 28, 2016 04:49 - CONCLUSION: Unchanged bibasilar densities. Wale Dalal MD Liver Ultrasound 05/09/16 0000 Signed Impressions: Service Date/Time: Monday, May 09, 2016 22:28 - CONCLUSION: 1. Enlarged, fatty liver. 2. Small stones or tumefactive sludge adherent to one of the gallbladder arcos. 3. Splenomegaly. 4. Pancreas is obscured by overlying bowel gas and patient's body habitus. Arthur Kennedy MD Abdomen X-Ray 05/01/16 0000 Signed Impressions: Service Date/Time: Sunday, May 01, 2016 17:28 - CONCLUSION: No evidence of obstruction. Feeding tube overlies the distal stomach, May have to be advanced slightly to reach the duodenum. Nick Jon MD Chest CT 03/28/16 0836 Signed Impressions: Service Date/Time: Monday, March 28, 2016 09:57 - CONCLUSION: Development areas of air bronchograms and consolidation more prominent in the right and left posterior basilar segments of the lower lobes. ET tube above the chanelle. Bernard Hartman MD CT Angiography 03/24/16 1121 Signed Impressions: Service Date/Time: Thursday, March 24, 2016 12:47 - CONCLUSION: 1. There is respiratory motion artifact but no PE is identified through most of the segmental level pulmonary arteries. 2. Mildly enlarged main pulmonary artery may indicate pulmonary arterial hypertension. 3. 11 mm left lower lobe noncalcified pulmonary nodule. Suggest correlation with any prior imaging studies that could confirm longer-term stability. If none are available consider short-term followup noncontrast chest CT in approximately 3 months. Ubaldo Rodas MD Objective Remarks GENERAL: Alert, NAD. SKIN: Warm and dry. HEAD: Normocephalic. EYES: No scleral icterus. No injection or drainage. NECK: Supple, trachea midline. No JVD or lymphadenopathy. CARDIOVASCULAR: Regular rate and rhythm without murmurs, gallops, or rubs. RESPIRATORY: Moderate air movement. No accessory muscle use. on T piece. GASTROINTESTINAL: Abdomen soft, non-tender, nondistended. MUSCULOSKELETAL: No cyanosis. Trace edema in lower ext. BACK: Nontender without obvious deformity. No CVA tenderness. Procedures 06/03/2016 EGD with PEG placement Date of Insertion: May 03, 2016 Date of Insertion: Apr 02, 2016 Date of Removal: May 03, 2016 Line: PICC Side: Left Location: Antecubital A/P Problem List: (1) Acute hypercapnic respiratory failure ICD Code: J96.02 Status: Acute (2) Staphylococcus aureus pneumonia ICD Code: J15.211 Status: Acute (3) Encephalopathy ICD Code: G93.40 Status: Acute (4) JACOB (obstructive sleep apnea) ICD Code: G47.33 Status: Acute (5) Diabetes mellitus type 2 in obese ICD Code: E11.9 Status: Acute (6) Morbid obesity with BMI of 50.0-59.9, adult ICD Code: E66.01 Status: Acute (7) Obesity hypoventilation syndrome ICD Code: E66.2 Status: Acute Assessment and Plan Mr. Leger is a pleasant 50 year old male with a history of sleep apnea, morbid obesity, DM 2 who was admitted to the hospital on 03/24/2016 due to lightheadedness and dizziness. Initial work up indicated hypercarbia as well as hypoxemia. His O2 sat was 78% in the ED. CTA was negative for PE. He was started on BiPAP. However, due to unsatisfactory response, patient was intubated after neuromuscular paralysis using succinylcholine. Tracheostomy was done on 04/30/2016. Patient remained in the ICU until 05/07/2016. Patient went into acute respiratory failure again on 05/27/2016 and subsequently he was transferred back to ICU. Trach was exchanged on 05/27/2016 and he remained on mechanical ventillation. He was weaned off mechanical ventilation after tolerating CPAP trials. He was placed on T piece trial and tolerated that well. He was subsequently transferred to hospitalist service on 06/05/2016. - Acute respiratory failure mixed - hypercarbic and hypoxemic. - Probable obstructive sleep apnea - Obesity hypoventilation syndrome. - s/p Tracheostomy exchange to #6 Shiley fenestrated cuffed on 05/27/2016. - Continue T piece. Pulmonary following - Continue DuoNeb, Ipratropium neb treatments. - Pneumonia with Staph Aureus - sputum cx positive for MSSA on 05/27/2016. 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 - Currently on Baclofen 10mg Q12h, Lyrica 50mg Qday, Seroquel 25mg BID, Fentanyl patch 25mcg, [place] PRN - Discontinued Oxycodone - has not used it since 05/23/2016. - Diabetes mellitus type 2 - Currently on sliding scale insulin. Goal glucose 140-180. - Continue Levemir 5 units QHS and gradually titrate up as needed. - May need to add premeal coverage. - Placement efforts in progress. Patient's insurance company has denied LTAC. Full code. Lovenox. Jody Briones DO Jun 07, 2016 23:23
[2016-06-08] VITALS (7 sets, daily range): BP systolic 103–122; BP diastolic 6–74; PULSE 89–97; RESP 16–20; TEMP 97.3–98.4; O2SAT 92–100
[2016-06-08] MEDS: ARTIFICIAL TEARS OPTH SOLN 15 ML BTL EACH EYE SCH ×6 (01:58→20:59)
[2016-06-08] MEDS: FREE WATER G-TUBE SCH ×3 (06:00→17:57)
[2016-06-08] MEDS: ENOXAPARIN SODIUM 40 MG/0.4 ML SYRINGE SQ SCH ×2 (06:09→17:57)
[2016-06-08] MEDS: INSULIN ASPART SUPPLEMENTAL SCALE SQ SCH ×4 (06:09→20:58)
[2016-06-08] MEDS: CHLORHEXIDINE 0.12% (ORAL KIT) 15 ML CUP MT SCH ×2 (08:00→20:00)
--- NOTE | 2016-06-08 08:47 | HHI.PR ---
Subjective Remarks off THE VENTILATOR ALERT RESPONDS APPROPRIATELY le edema Objective Vital Signs Date Time Temp Pulse Resp B/P Pulse Ox O2 Delivery O2 Flow Rate FiO2 06/08/16 08:00 97.3 92 16 117/73 93 06/07/16 23:53 99.6 92 19 101/55 96 06/07/16 22:00 T-Piece 5.00 40 06/07/16 21:49 98 T-piece 40 06/07/16 20:00 98.4 89 20 111/57 95 06/07/16 16:00 97.9 93 16 111/66 97 06/07/16 12:00 97.7 93 17 112/67 93 06/07/16 09:05 95 T-piece 5.00 40 I/O 06/07/16 06/07/16 06/07/16 06/08/16 06/08/16 06/08/16 07:00 15:00 23:00 07:00 15:00 23:00 Intake Total 240 ml 1225 ml 340 ml 440 ml Output Total 600 ml 400 ml 450 ml 1200 ml Balance -360 ml 825 ml -110 ml -760 ml Intake Oral 240 ml 1225 ml 240 ml 240 ml Other 100 ml 200 ml Output Urine Total 600 ml 400 ml 450 ml 1200 ml # Bowel Movements 1 0 1 0 Result Diagram: 06/04/16 1535 06/04/16 1535 Objective Remarks GENERAL: SKIN: Warm and dry. HEAD: Atraumatic. Normocephalic. EYES: Pupils equal and round. No scleral icterus. No injection or drainage. ENT: No nasal bleeding or discharge. Mucous membranes pink and moist. NECK: Trachea midline. No JVD. CARDIOVASCULAR: Regular rate and rhythm. RESPIRATORY: No accessory muscle use. Clear to auscultation. Breath sounds equal bilaterally. GASTROINTESTINAL: Abdomen soft, non-tender, nondistended. Hepatic and splenic margins not palpable. MUSCULOSKELETAL: Extremities without clubbing, cyanosis, or edema. No obvious deformities. NEUROLOGICAL: Awake and alert. No obvious cranial nerve deficits. Motor grossly within normal limits. Five out of 5 muscle strength in the arms and legs. Normal speech. PSYCHIATRIC: Appropriate mood and affect; insight and judgment normal. Assessment and Plan Assessment and Plan OFF THE VENTILATOR NOW ON T PIECE RESPIRATORY FAILURE SEPSIS RESOLVED ARDS JACOB/CSA S/P TRACH. PLAN PULM TOILET INCREASE Activity US LE pending ON TPIECE [place] Wadie MD Jun 08, 2016 08:47
[2016-06-08] MEDS: QUEtiapine FUMARATE 25 MG TAB PO SCH ×2 (08:57→20:57)
[2016-06-08] MEDS: BACLOFEN 10 MG TAB PO SCH ×2 (08:57→20:57)
[2016-06-08] MEDS: LACTOBACILLUS ACIDOPHILUS TAB PO SCH ×3 (08:58→17:57)
[2016-06-08] MEDS: PANTOPRAZOLE SOD 40 MG DELAYED RELEASE TAB PO SCH (08:58)
[2016-06-08] MEDS: PREGABALIN 25 MG CAP PO SCH (08:58)
[2016-06-08] MEDS: POTASSIUM CHLORIDE 10 MEQ CONTROLLED RELEASE TAB PO SCH (08:58)
[2016-06-08] MEDS: POLYETHYLENE GLYCOL 17 GM PKG PO SCH ×2 (08:59→20:57)
[2016-06-08] MEDS: SILVER SULFADIAZINE 1% CR 400 GM JAR TOPICAL SCH (08:59)
[2016-06-08] MEDS: DOCUSATE SODIUM 100 MG/10 ML UDC PO SCH ×2 (08:59→20:57)
[2016-06-08] MEDS: ACETAMINOPHEN/HYDROcodone 325 MG/5 MG TAB PO SCH ×2 (08:59→20:57)
[2016-06-08] MEDS: SENNOSIDES SYRUP 8.8 MG/5 ML CUP PO/TUBE SCH ×2 (08:59→20:57)
[2016-06-08] MEDS: NYSTATIN 100,000 U/GM PWD 15 GM BTL TOPICAL SCH ×2 (09:00→20:59)
[2016-06-08] MEDS: BETAMETHASONE/CLOTRIMAZOLE CREAM 15 GM TOPICAL SCH ×2 (09:00→20:59)
[2016-06-08] MEDS: SODIUM CHLORIDE 0.9% FLUSH 5 ML FLUSH IVF SCH (09:00)
[2016-06-08] MEDS: BENEPROTEIN POWDER 1 PACK G-TUBE SCH ×3 (09:00→17:57)
--- NOTE | 2016-06-08 14:31 | HHI.PR ---
Subjective Remarks Follow up for hypercarbic and hypoxemic respiratory failure. No acute events overnight. Currently on trach collar mask with O2 sat 95%. The patient denies any medical complaints. Objective Vitals Vital Signs Date Time Temp Pulse Resp B/P Pulse Ox O2 Delivery O2 Flow Rate FiO2 06/08/16 12:00 97.7 92 16 103/63 95 06/08/16 10:18 92 Trach Collar 40 06/08/16 10:18 Aerosol Mask 40 06/08/16 09:58 18 06/08/16 09:58 18 06/08/16 09:00 T-Piece 6.00 40 06/08/16 08:00 97.3 92 16 117/73 93 06/07/16 23:53 99.6 92 19 101/55 96 06/07/16 22:00 T-Piece 5.00 40 06/07/16 21:49 98 T-piece 40 06/07/16 20:00 98.4 89 20 111/57 95 06/07/16 16:00 97.9 93 16 111/66 97 I/O 06/07/16 06/07/16 06/07/16 06/08/16 06/08/16 06/08/16 07:00 15:00 23:00 07:00 15:00 23:00 Intake Total 240 ml 1225 ml 340 ml 440 ml Output Total 600 ml 400 ml 450 ml 1200 ml Balance -360 ml 825 ml -110 ml -760 ml Intake Oral 240 ml 1225 ml 240 ml 240 ml Other 100 ml 200 ml Output Urine Total 600 ml 400 ml 450 ml 1200 ml # Bowel Movements 1 0 1 0 Result Diagram: 06/04/16 1535 06/04/16 1535 Imaging Last Impressions Lower Extremity Ultrasound 06/04/16 0000 Signed Impressions: Service Date/Time: Saturday, June 04, 2016 14:54 - CONCLUSION: 1. No DVT identified. Dc Barton MD Chest X-Ray 05/28/16 0600 Signed Impressions: Service Date/Time: Saturday, May 28, 2016 04:49 - CONCLUSION: Unchanged bibasilar densities. Wale Dalal MD Liver Ultrasound 05/09/16 0000 Signed Impressions: Service Date/Time: Monday, May 09, 2016 22:28 - CONCLUSION: 1. Enlarged, fatty liver. 2. Small stones or tumefactive sludge adherent to one of the gallbladder arcos. 3. Splenomegaly. 4. Pancreas is obscured by overlying bowel gas and patient's body habitus. Arthur Kennedy MD Abdomen X-Ray 05/01/16 0000 Signed Impressions: Service Date/Time: Sunday, May 01, 2016 17:28 - CONCLUSION: No evidence of obstruction. Feeding tube overlies the distal stomach, May have to be advanced slightly to reach the duodenum. Nick Jon MD Chest CT 03/28/16 0836 Signed Impressions: Service Date/Time: Monday, March 28, 2016 09:57 - CONCLUSION: Development areas of air bronchograms and consolidation more prominent in the right and left posterior basilar segments of the lower lobes. ET tube above the chanelle. Bernard Hartman MD CT Angiography 03/24/16 1121 Signed Impressions: Service Date/Time: Thursday, March 24, 2016 12:47 - CONCLUSION: 1. There is respiratory motion artifact but no PE is identified through most of the segmental level pulmonary arteries. 2. Mildly enlarged main pulmonary artery may indicate pulmonary arterial hypertension. 3. 11 mm left lower lobe noncalcified pulmonary nodule. Suggest correlation with any prior imaging studies that could confirm longer-term stability. If none are available consider short-term followup noncontrast chest CT in approximately 3 months. Ubaldo Rodas MD Objective Remarks GENERAL: Well-nourished, well-developed obese middle aged male patient in [facility]. SKIN: Warm and dry. No rash. HEENT: Normocephalic. Atraumatic. Pupils equal and round. No scleral icterus. No injection or drainage. Mucous membranes pink and moist. NECK: Supple. Trachea midline with trach collar in place. CARDIOVASCULAR: Regular rate and rhythm. S1, S2 noted. No murmur appreciated. RESPIRATORY: No accessory muscle use. Clear to auscultation. Breath sounds equal bilaterally. GASTROINTESTINAL: Abdomen soft, non-tender, nondistended. Normoactive bowel sounds x4. MUSCULOSKELETAL: No obvious deformities. Extremities without clubbing, cyanosis , or edema. NEUROLOGICAL: Awake and alert. No obvious cranial nerve deficits. Nonverbal with trach. PSYCHIATRIC: Appropriate mood and affect; insight and judgment normal. Procedures 06/03/2016 EGD with PEG placement Medications and IVs Current Medications Medications (Trade) Dose Ordered Sig/Chapis Route Start Time Stop Time Status Last Admin (NS Flush) 2 ml UNSCH PRN IVF 03/24/16 11:30 05/23/16 05:55 (Lotrisone Cream) 1 applic Q12HR TOPICAL 03/26/16 09:00 06/08/16 09:00 (Lovenox Inj) 40 mg Q12H SQ 03/26/16 18:00 06/08/16 06:09 (Beneprotein Powder) 1 pack TID G-TUBE 03/27/16 09:00 06/08/16 12:47 (Colace Liq) 100 mg Q12HR PO 03/29/16 09:00 06/08/16 08:59 (Tylenol 650 Mg/ 20 ml Liq) 650 mg Q6H PRN PO 03/30/16 15:45 05/22/16 09:34 (Senna Liq) 8.8 mg BID PO/TUBE 04/01/16 09:00 06/08/16 08:59 (Glycerin Adult Supp) 2 gm BID PRN RECTAL 04/01/16 09:00 04/25/16 10:22 (Peridex 0.12% Liq) 15 ml BID@08,20 MT 04/01/16 20:00 06/08/16 08:00 (NS Flush) DAILY IVF 04/03/16 09:00 06/08/16 09:00 (NS Flush) UNSCH PRN IVF 04/02/16 09:30 04/22/16 07:42 (Lactinex) 1 tab TID PO 04/03/16 13:00 06/08/16 12:50 (Tears Naturale Opth Soln) 1 drop Q4H EACH EYE 04/21/16 18:00 06/08/16 12:52 (Miralax) 17 gm BID PO 04/24/16 09:00 06/08/16 08:59 (Mycostatin Powder) 1 applic Q12HR TOPICAL 04/27/16 11:00 06/08/16 09:00 (Free Water) 100 ml Q6HR G-TUBE 05/01/16 18:00 06/08/16 12:00 (Duragesic 25 Mcg Patch.72 Hr) 1 patch Q3D TD 05/02/16 09:00 06/07/16 07:42 Miscellaneous Information 1 Q3D T-DERMAL 05/05/16 09:00 06/07/16 07:42 (Ativan Inj) 2 mg Q4H PRN IVP 05/02/16 16:30 05/07/16 04:42 (SEROquel) 25 mg BID PO 05/04/16 09:00 06/08/16 08:57 (Zofran Inj) 4 mg Q6H PRN IV 05/05/16 06:45 ([place] 5-325 Mg) 1 tab Q12HR PO 05/06/16 21:00 06/08/16 08:59 (KCl) 10 meq DAILY PO 05/10/16 09:30 06/08/16 08:58 (Phazyme Chew) 125 mg DAILY PRN PO 05/11/16 15:00 05/12/16 15:00 (Silvadene 1% Cream (400 Gm)) 1 applic DAILY TOPICAL 05/16/16 11:00 06/08/16 08:59 (Lyrica) 50 mg DAILY PO 05/21/16 09:00 06/08/16 08:58 (Lioresal) 10 mg Q12HR PO 05/24/16 10:45 06/08/16 08:57 (Pill Splitter) 1 ea UNSCH PRN OTHER 05/24/16 10:45 (Protonix) 40 mg DAILY PO 05/26/16 09:00 06/08/16 08:58 (D50w (Vial) Inj) 25 ml UNSCH PRN IV PUSH 05/31/16 22:00 (Glucagon Inj) 1 mg UNSCH PRN OTHER 05/31/16 22:00 (Levemir Inj) 5 units HS SQ 06/06/16 21:00 06/07/16 22:09 Date of Insertion: Apr 02, 2016 Date of Removal: May 03, 2016 Line: PICC Side: Left Location: Antecubital A/P Problem List: (1) Acute hypercapnic respiratory failure ICD Code: J96.02 Status: Acute (2) Staphylococcus aureus pneumonia ICD Code: J15.211 Status: Acute (3) Encephalopathy ICD Code: G93.40 Status: Acute (4) JACOB (obstructive sleep apnea) ICD Code: G47.33 Status: Acute (5) Diabetes mellitus type 2 in obese ICD Code: E11.9 Status: Acute (6) Morbid obesity with BMI of 50.0-59.9, adult ICD Code: E66.01 Status: Acute (7) Obesity hypoventilation syndrome ICD Code: E66.2 Status: Acute Assessment and Plan Mr. Leger is a pleasant 50 year old male with a history of sleep apnea, morbid obesity, DM 2 who was admitted to the hospital on 03/24/2016 due to lightheadedness and dizziness. Initial work up indicated hypercarbia as well as hypoxemia. His O2 sat was 78% in the ED. CTA was negative for PE. He was started on BiPAP. However, due to unsatisfactory response, patient was intubated after neuromuscular paralysis using succinylcholine. Tracheostomy was done on 04/30/2016. Patient remained in the ICU until 05/07/2016. Patient went into acute respiratory failure again on 05/27/2016 and subsequently he was transferred back to ICU. Trach was exchanged on 05/27/2016 and he remained on mechanical ventillation. He was weaned off mechanical ventilation after tolerating CPAP trials. He was placed on T piece trial and tolerated that well. He was subsequently transferred to hospitalist service on 06/05/2016. - Acute respiratory failure mixed - hypercarbic and hypoxemic. - Probable obstructive sleep apnea - Obesity hypoventilation syndrome. - s/p Tracheostomy exchange to #6 Shiley fenestrated cuffed on 05/27/2016. - Continue T piece. Pulmonary following - Continue DuoNeb, Ipratropium neb treatments. - Pneumonia with Staph Aureus - sputum cx positive for MSSA on 05/27/2016. 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 - Currently on Baclofen 10mg Q12h, Lyrica 50mg Qday, Seroquel 25mg BID, Fentanyl patch 25mcg, [place] PRN - Discontinued Oxycodone - has not used it since 05/23/2016. - Diabetes mellitus type 2 - HgbA1c 7.4 in - Currently on sliding scale insulin. Goal glucose 140-180. - Continue Levemir 5 units QHS and gradually titrate up as needed. - May need to add premeal coverage. - Placement efforts in progress. Patient's insurance company has denied LTAC. Full code. Lovenox. Written by Jody Jose, acting as scribe for Dr. Briones on 06/08/16 at 13:35. All or portions of this note were transcribed by scribe FLEX Hughes. I , Dr. Salty Briones personally performed the history, physical exam, and medical decision making; and confirmed the accuracy of the information in the transcribed note. Authenticated by Dr. Salty Briones on 06/08/16 at 17:40. Jody Jose PA-C Jun 08, 2016 2:31 pm Jody Briones DO Jun 08, 2016 5:41 pm
[2016-06-08] MEDS: INSULIN DETEMIR 100 UNITS/ML VIAL SQ SCH (20:57)
[2016-06-09] VITALS (8 sets, daily range): BP systolic 99–133; BP diastolic 62–76; PULSE 91–97; RESP 16–20; TEMP 97.3–99.1; O2SAT 95–99
[2016-06-09] MEDS: ARTIFICIAL TEARS OPTH SOLN 15 ML BTL EACH EYE SCH ×6 (02:00→21:42)
[2016-06-09] MEDS: ENOXAPARIN SODIUM 40 MG/0.4 ML SYRINGE SQ SCH ×2 (05:34→16:50)
[2016-06-09] MEDS: FREE WATER G-TUBE SCH ×4 (05:34→15:11)
[2016-06-09] MEDS: INSULIN ASPART SUPPLEMENTAL SCALE SQ SCH ×4 (05:34→21:42)
[2016-06-09] MEDS: CHLORHEXIDINE 0.12% (ORAL KIT) 15 ML CUP MT SCH ×2 (08:00→20:00)
[2016-06-09] MEDS: POLYETHYLENE GLYCOL 17 GM PKG PO SCH ×2 (08:17→21:35)
[2016-06-09] MEDS: SENNOSIDES SYRUP 8.8 MG/5 ML CUP PO/TUBE SCH ×2 (08:17→21:00)
[2016-06-09] MEDS: DOCUSATE SODIUM 100 MG/10 ML UDC PO SCH ×2 (08:17→21:00)
[2016-06-09] MEDS: BACLOFEN 10 MG TAB PO SCH ×2 (08:17→21:34)
[2016-06-09] MEDS: LACTOBACILLUS ACIDOPHILUS TAB PO SCH ×3 (08:17→16:50)
[2016-06-09] MEDS: PREGABALIN 25 MG CAP PO SCH (08:18)
[2016-06-09] MEDS: POTASSIUM CHLORIDE 10 MEQ CONTROLLED RELEASE TAB PO SCH (08:18)
[2016-06-09] MEDS: ACETAMINOPHEN/HYDROcodone 325 MG/5 MG TAB PO SCH ×2 (08:18→21:35)
[2016-06-09] MEDS: QUEtiapine FUMARATE 25 MG TAB PO SCH ×2 (08:18→21:34)
[2016-06-09] MEDS: PANTOPRAZOLE SOD 40 MG DELAYED RELEASE TAB PO SCH (08:19)
[2016-06-09] MEDS: BENEPROTEIN POWDER 1 PACK G-TUBE SCH ×3 (08:20→15:10)
[2016-06-09] MEDS: SODIUM CHLORIDE 0.9% FLUSH 5 ML FLUSH IVF SCH (08:20)
[2016-06-09] MEDS: SILVER SULFADIAZINE 1% CR 400 GM JAR TOPICAL SCH (08:24)
[2016-06-09] MEDS: BETAMETHASONE/CLOTRIMAZOLE CREAM 15 GM TOPICAL SCH ×2 (08:24→21:36)
[2016-06-09] MEDS: NYSTATIN 100,000 U/GM PWD 15 GM BTL TOPICAL SCH ×2 (08:24→21:36)
--- NOTE | 2016-06-09 13:39 | HHI.PR ---
Subjective Remarks Follow up for hypercarbic and hypoxemic respiratory failure. No acute events overnight. Currently on trach collar mask with O2 sat 97%. He had Passy-Reinholds valve placed yesterday and he is now able to communicate. The patient complains of drainage, irritation, and discomfort around PEG tube site. He has been eating 100% of his meals and denies any difficulty swallowing his medications. He is requesting if PEG can be removed. Otherwise, the patient has no other medical complaints. Objective Vitals Vital Signs Date Time Temp Pulse Resp B/P Pulse Ox O2 Delivery O2 Flow Rate FiO2 06/09/16 12:00 97.8 93 16 110/65 96 06/09/16 08:00 98.6 97 16 99/62 97 06/09/16 07:00 Trach Collar 6.00 40 Humidified 06/09/16 04:00 99.1 91 20 112/66 95 06/09/16 00:07 98.4 93 20 133/63 96 06/08/16 21:57 18 06/08/16 21:05 Trach Collar 6.00 40 Humidified 06/08/16 20:04 92 40 06/08/16 20:00 97.8 89 20 122/74 100 06/08/16 17:54 92 Trach Collar 6.00 40 06/08/16 16:00 98.4 97 16 118/6 92 I/O 06/08/16 06/08/16 06/08/16 06/09/16 06/09/16 06/09/16 07:00 15:00 23:00 07:00 15:00 23:00 Intake Total 440 ml 600 ml 120 ml 640 ml Output Total 1200 ml 200 ml 1200 ml Balance -760 ml 600 ml -80 ml -560 ml Intake Oral 240 ml 120 ml 240 ml Other 200 ml 600 ml 400 ml Output Urine Total 1200 ml 200 ml 1200 ml # Bowel Movements 0 1 0 Objective Remarks GENERAL: Well-nourished, well-developed obese middle aged male patient in [facility]. SKIN: Warm and dry. No rash. HEENT: Normocephalic. Atraumatic. Pupils equal and round. No scleral icterus. No injection or drainage. Mucous membranes pink and moist. NECK: Supple. Trachea midline with trach collar in place. CARDIOVASCULAR: Regular rate and rhythm. S1, S2 noted. No murmur appreciated. RESPIRATORY: No accessory muscle use. Clear to auscultation. Breath sounds equal bilaterally. GASTROINTESTINAL: Abdomen soft, non-tender, nondistended. Normoactive bowel sounds x4. PEG at left abdomen with some drainage at insertion site. MUSCULOSKELETAL: No obvious deformities. Extremities without clubbing, cyanosis , or edema. NEUROLOGICAL: Awake and alert. No obvious cranial nerve deficits. Normal speech with Passy-Meka valve in place. PSYCHIATRIC: Appropriate mood and affect; insight and judgment normal. Procedures 04/30/16 - tracheostomy by Dr. Reyes 05/03/16 - EGD with PEG placement by Dr. Faith 06/09/16 - PEG removal Medications and IVs Current Medications Medications (Trade) Dose Ordered Sig/Chapis Route Start Time Stop Time Status Last Admin (NS Flush) 2 ml UNSCH PRN IVF 03/24/16 11:30 05/23/16 05:55 (Lotrisone Cream) 1 applic Q12HR TOPICAL 03/26/16 09:00 06/09/16 08:24 (Lovenox Inj) 40 mg Q12H SQ 03/26/16 18:00 06/09/16 05:34 (Beneprotein Powder) 1 pack TID G-TUBE 03/27/16 09:00 06/09/16 12:01 (Colace Liq) 100 mg Q12HR PO 03/29/16 09:00 06/09/16 08:17 (Tylenol 650 Mg/ 20 ml Liq) 650 mg Q6H PRN PO 03/30/16 15:45 05/22/16 09:34 (Senna Liq) 8.8 mg BID PO/TUBE 04/01/16 09:00 06/09/16 08:17 (Glycerin Adult Supp) 2 gm BID PRN RECTAL 04/01/16 09:00 04/25/16 10:22 (Peridex 0.12% Liq) 15 ml BID@08,20 MT 04/01/16 20:00 06/08/16 20:00 (NS Flush) DAILY IVF 04/03/16 09:00 06/08/16 09:00 (NS Flush) UNSCH PRN IVF 04/02/16 09:30 04/22/16 07:42 (Lactinex) 1 tab TID PO 04/03/16 13:00 06/09/16 12:01 (Tears Naturale Opth Soln) 1 drop Q4H EACH EYE 04/21/16 18:00 06/09/16 08:21 (Miralax) 17 gm BID PO 04/24/16 09:00 06/09/16 08:17 (Mycostatin Powder) 1 applic Q12HR TOPICAL 04/27/16 11:00 06/09/16 08:24 (Free Water) 100 ml Q6HR G-TUBE 05/01/16 18:00 06/09/16 12:00 (Duragesic 25 Mcg Patch.72 Hr) 1 patch Q3D TD 05/02/16 09:00 06/07/16 07:42 Miscellaneous Information 1 Q3D T-DERMAL 05/05/16 09:00 06/07/16 07:42 (Ativan Inj) 2 mg Q4H PRN IVP 05/02/16 16:30 05/07/16 04:42 (SEROquel) 25 mg BID PO 05/04/16 09:00 06/09/16 08:18 (Zofran Inj) 4 mg Q6H PRN IV 05/05/16 06:45 ([place] 5-325 Mg) 1 tab Q12HR PO 05/06/16 21:00 06/09/16 08:18 (KCl) 10 meq DAILY PO 05/10/16 09:30 06/09/16 08:18 (Phazyme Chew) 125 mg DAILY PRN PO 05/11/16 15:00 05/12/16 15:00 (Silvadene 1% Cream (400 Gm)) 1 applic DAILY TOPICAL 05/16/16 11:00 06/09/16 08:24 (Lyrica) 50 mg DAILY PO 05/21/16 09:00 06/09/16 08:18 (Lioresal) 10 mg Q12HR PO 05/24/16 10:45 06/09/16 08:17 (Pill Splitter) 1 ea UNSCH PRN OTHER 05/24/16 10:45 (Protonix) 40 mg DAILY PO 05/26/16 09:00 06/09/16 08:19 (D50w (Vial) Inj) 25 ml UNSCH PRN IV PUSH 05/31/16 22:00 (Glucagon Inj) 1 mg UNSCH PRN OTHER 05/31/16 22:00 (Levemir Inj) 5 units HS SQ 06/06/16 21:00 06/08/16 20:57 Urinary Catheter: No Date of Insertion: Apr 02, 2016 Date of Removal: May 03, 2016 Line: PICC Side: Left Location: Antecubital A/P Problem List: (1) Acute hypercapnic respiratory failure ICD Code: J96.02 Status: Acute (2) Staphylococcus aureus pneumonia ICD Code: J15.211 Status: Acute (3) Encephalopathy ICD Code: G93.40 Status: Acute (4) JACOB (obstructive sleep apnea) ICD Code: G47.33 Status: Acute (5) Diabetes mellitus type 2 in obese ICD Code: E11.9 Status: Acute (6) Morbid obesity with BMI of 50.0-59.9, adult ICD Code: E66.01 Status: Acute (7) Obesity hypoventilation syndrome ICD Code: E66.2 Status: Acute Assessment and Plan Mr. Leger is a pleasant 50 year old male with a history of sleep apnea, morbid obesity, DM 2 who was admitted to the hospital on 03/24/2016 due to lightheadedness and dizziness. Initial work up indicated hypercarbia as well as hypoxemia. His O2 sat was 78% in the ED. CTA was negative for PE. He was started on BiPAP. However, due to unsatisfactory response, patient was intubated after neuromuscular paralysis using succinylcholine. Tracheostomy was done on 04/30/2016. Patient remained in the ICU until 05/07/2016. Patient went into acute respiratory failure again on 05/27/2016 and subsequently he was transferred back to ICU. Trach was exchanged on 05/27/2016 and he remained on mechanical ventillation. He was weaned off mechanical ventilation after tolerating CPAP trials. He was placed on T piece trial and tolerated that well. He was subsequently transferred to hospitalist service on 06/05/2016. - Acute respiratory failure mixed - hypercarbic and hypoxemic. - Probable obstructive sleep apnea - Obesity hypoventilation syndrome. - s/p Tracheostomy placed 04/30, then exchanged to #6 Shiley fenestrated cuffed on 05/27/2016. - On trach collar, O2 sat 97% - Pulmonary following - Continue DuoNeb, Ipratropium neb treatments. - Passy Reinholds valve in place - Pneumonia with Staph Aureus - sputum cx positive for MSSA on 05/27/2016. 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 - Currently on Baclofen 10mg Q12h, Lyrica 50mg Qday, Seroquel 25mg BID, Fentanyl patch 25mcg, [place] PRN - Discontinued Oxycodone - has not used it since 05/23/2016. - Diabetes mellitus type 2 - HgbA1c 7.4 in - Currently on sliding scale insulin. Goal glucose 140-180. - Continue Levemir 5 units QHS and gradually titrate up as needed. - May need to add premeal coverage. - Nutrition: currently with PEG tube placed initially on 05/[address] Faith - 06/09-pt complains of irritation/drainage/discomfort at PEG insertion site, he is tolerating all meals and medications by mouth - PEG removed today 06/[address] Munson - Placement efforts in progress. Patient's insurance company has denied LTAC. Full code. Lovenox. Written by Jody Jose, acting as scribe for Dr. Briones on 06/09/16 at 13:30. All or portions of this note were transcribed by scribe FLEX Hughes. I , Dr. Salty Briones personally performed the history, physical exam, and medical decision making; and confirmed the accuracy of the information in the transcribed note. Authenticated by Dr. Salty Briones on 06/09/16 at 22:31. Jody Jose PA-C Jun 09, 2016 13:39 Jody Briones DO Jun 09, 2016 22:31
--- NOTE | 2016-06-09 18:15 | HHI.GIFU ---
Subjective Remarks asked to removed PEG tube, doing ok, eating well, tolerating diet, not using the PEG Objective Vitals I&O Vital Signs Date Time Temp Pulse Resp B/P Pulse Ox O2 Delivery O2 Flow Rate FiO2 06/09/16 18:05 97 T-piece 6.00 40 06/09/16 16:00 97.7 91 16 109/64 95 06/09/16 12:00 97.8 93 16 110/65 96 06/09/16 08:00 98.6 97 16 99/62 97 06/09/16 07:00 Trach Collar 6.00 40 Humidified 06/09/16 04:00 99.1 91 20 112/66 95 06/09/16 00:07 98.4 93 20 133/63 96 06/08/16 21:57 18 06/08/16 21:05 Trach Collar 6.00 40 Humidified 06/08/16 20:04 92 40 06/08/16 20:00 97.8 89 20 122/74 100 I/O 06/08/16 06/08/16 06/08/16 06/09/16 06/09/16 06/09/16 07:00 15:00 23:00 07:00 15:00 23:00 Intake Total 440 ml 600 ml 120 ml 640 ml 1080 ml Output Total 1200 ml 200 ml 1200 ml 1250 ml Balance -760 ml 600 ml -80 ml -560 ml -170 ml Intake Oral 240 ml 120 ml 240 ml 1080 ml Other 200 ml 600 ml 400 ml Output Urine Total 1200 ml 200 ml 1200 ml 1250 ml # Bowel Movements 0 1 0 2 Physical Exam HEENT: Normocephalic; atraumatic; no jaundice. NECK: trach in place CHEST: Coarse BS bilaterally, decreased at bases. T Bar CARDIAC: Regular rate and rhythm ABDOMEN: soft, obese, nondistended, nontender; bowel sounds are present in all four quadrants. PEG tube in place EXTREMITIES: Generalized edema. SKIN: Normal; no rash; no jaundice. WEED CUTTER: Alert Assessment and Plan Plan ASSESSMENT: - eating well, not using PEG Plan: - PEG tube was removed, site ok -Diet as tolerated. we will FU as needed Lisa Munson MD Jun 09, 2016 18:15
[2016-06-09] MEDS: INSULIN DETEMIR 100 UNITS/ML VIAL SQ SCH (21:35)
[2016-06-10] VITALS (7 sets, daily range): BP systolic 108–122; BP diastolic 65–77; PULSE 92–102; RESP 16–20; TEMP 95.4–97.6; O2SAT 95–98
[2016-06-10] MEDS: ARTIFICIAL TEARS OPTH SOLN 15 ML BTL EACH EYE SCH ×6 (02:23→20:29)
[2016-06-10] MEDS: FREE WATER G-TUBE SCH ×4 (04:39→15:44)
[2016-06-10] MEDS: INSULIN ASPART SUPPLEMENTAL SCALE SQ SCH ×4 (04:42→20:42)
[2016-06-10] MEDS: ENOXAPARIN SODIUM 40 MG/0.4 ML SYRINGE SQ SCH ×2 (04:42→17:40)
[2016-06-10] MEDS: CHLORHEXIDINE 0.12% (ORAL KIT) 15 ML CUP MT SCH ×3 (08:00→21:50)
[2016-06-10] MEDS: REMOVE OLD PATCH T-DERMAL SCH (09:00)
[2016-06-10] MEDS: PANTOPRAZOLE SOD 40 MG DELAYED RELEASE TAB PO SCH (09:00)
[2016-06-10] MEDS: BENEPROTEIN POWDER 1 PACK G-TUBE SCH ×3 (09:00→17:40)
[2016-06-10] MEDS: SODIUM CHLORIDE 0.9% FLUSH 5 ML FLUSH IVF SCH (09:00)
[2016-06-10] MEDS: POLYETHYLENE GLYCOL 17 GM PKG PO SCH ×2 (09:03→20:28)
[2016-06-10] MEDS: LACTOBACILLUS ACIDOPHILUS TAB PO SCH ×3 (09:03→17:40)
[2016-06-10] MEDS: QUEtiapine FUMARATE 25 MG TAB PO SCH ×2 (09:03→20:27)
[2016-06-10] MEDS: PREGABALIN 25 MG CAP PO SCH (09:03)
[2016-06-10] MEDS: POTASSIUM CHLORIDE 10 MEQ CONTROLLED RELEASE TAB PO SCH (09:04)
[2016-06-10] MEDS: ACETAMINOPHEN/HYDROcodone 325 MG/5 MG TAB PO SCH ×2 (09:05→20:28)
[2016-06-10] MEDS: fentaNYL 25 MCG/HR PATCH TD SCH (09:05)
[2016-06-10] MEDS: BACLOFEN 10 MG TAB PO SCH ×2 (09:07→20:28)
[2016-06-10] MEDS: SENNOSIDES SYRUP 8.8 MG/5 ML CUP PO/TUBE SCH ×2 (09:08→20:28)
[2016-06-10] MEDS: DOCUSATE SODIUM 100 MG/10 ML UDC PO SCH ×2 (09:08→20:28)
[2016-06-10] MEDS: NYSTATIN 100,000 U/GM PWD 15 GM BTL TOPICAL SCH ×2 (09:09→20:29)
[2016-06-10] MEDS: BETAMETHASONE/CLOTRIMAZOLE CREAM 15 GM TOPICAL SCH ×2 (09:09→20:29)
[2016-06-10] MEDS: SILVER SULFADIAZINE 1% CR 400 GM JAR TOPICAL SCH (09:23)
--- NOTE | 2016-06-10 11:02 | HHI.PR ---
Subjective Remarks Follow up for hypercarbic and hypoxemic respiratory failure. The patient reports he is doing well again today. He is asking when he can go home. He states he lives with his brother who knows how to care for his trach. He also has a local sister and older brother who plan to help him at home. The patient has no other medical complaints at this time. Objective Vitals Vital Signs Date Time Temp Pulse Resp B/P Pulse Ox O2 Delivery O2 Flow Rate FiO2 06/10/16 10:30 98 Trach Collar 40 06/10/16 10:05 18 06/10/16 10:05 18 06/10/16 10:05 18 06/10/16 08:00 97.6 102 16 118/65 96 06/10/16 00:00 97.1 92 18 122/77 97 06/09/16 21:26 99 Trach Collar 7.00 40 Humidified 06/09/16 20:04 96 Trach Collar 9.00 40 06/09/16 20:00 97.3 95 18 128/76 99 06/09/16 18:05 97 T-piece 6.00 40 06/09/16 16:00 97.7 91 16 109/64 95 06/09/16 12:00 97.8 93 16 110/65 96 I/O 06/09/16 06/09/16 06/09/16 06/10/16 06/10/16 06/10/16 07:00 15:00 23:00 07:00 15:00 23:00 Intake Total 640 ml 1080 ml 120 ml 120 ml Output Total 1200 ml 1250 ml 625 ml 500 ml 250 ml Balance -560 ml -170 ml -505 ml -500 ml -130 ml Intake Oral 240 ml 1080 ml 120 ml 120 ml Other 400 ml Output Urine Total 1200 ml 1250 ml 625 ml 500 ml 250 ml # Bowel Movements 0 2 0 0 Objective Remarks GENERAL: Well-nourished, well-developed obese middle aged male patient in NAD. SKIN: Warm and dry. No rash. HEENT: Normocephalic. Atraumatic. Pupils equal and round. No scleral icterus. No injection or drainage. Mucous membranes pink and moist. NECK: Supple. Trachea midline with trach collar in place. CARDIOVASCULAR: Regular rate and rhythm. S1, S2 noted. No murmur appreciated. RESPIRATORY: No accessory muscle use. Clear to auscultation. Breath sounds equal bilaterally. GASTROINTESTINAL: Abdomen soft, non-tender, nondistended. Normoactive bowel sounds x4. PEG tube removed, site looks clean, healing well. MUSCULOSKELETAL: No obvious deformities. Extremities without clubbing, cyanosis , or edema. NEUROLOGICAL: Awake and alert. No obvious cranial nerve deficits. Normal speech with Passy[place] valve in place. PSYCHIATRIC: Appropriate mood and affect; insight and judgment normal. Procedures 04/30/16 - tracheostomy by Dr. Reyes 05/03/16 - EGD with PEG placement by Dr. Faith 06/09/16 - PEG removal Medications and IVs Current Medications Medications (Trade) Dose Ordered Sig/Chapis Route Start Time Stop Time Status Last Admin (NS Flush) 2 ml UNSCH PRN IVF 03/24/16 11:30 05/23/16 05:55 (Lotrisone Cream) 1 applic Q12HR TOPICAL 03/26/16 09:00 06/10/16 09:09 (Lovenox Inj) 40 mg Q12H SQ 03/26/16 18:00 06/10/16 04:42 (Beneprotein Powder) 1 pack TID G-TUBE 03/27/16 09:00 06/10/16 09:00 (Colace Liq) 100 mg Q12HR PO 03/29/16 09:00 06/10/16 09:08 (Tylenol 650 Mg/ 20 ml Liq) 650 mg Q6H PRN PO 03/30/16 15:45 05/22/16 09:34 (Senna Liq) 8.8 mg BID PO/TUBE 04/01/16 09:00 06/10/16 09:08 (Glycerin Adult Supp) 2 gm BID PRN RECTAL 04/01/16 09:00 04/25/16 10:22 (Peridex 0.12% Liq) 15 ml BID@08,20 MT 04/01/16 20:00 06/10/16 08:00 (NS Flush) DAILY IVF 04/03/16 09:00 06/10/16 09:00 (NS Flush) UNSCH PRN IVF 04/02/16 09:30 04/22/16 07:42 (Lactinex) 1 tab TID PO 04/03/16 13:00 06/10/16 09:03 (Tears Naturale Opth Soln) 1 drop Q4H EACH EYE 04/21/16 18:00 06/10/16 09:09 (Miralax) 17 gm BID PO 04/24/16 09:00 06/10/16 09:03 (Mycostatin Powder) 1 applic Q12HR TOPICAL 04/27/16 11:00 06/10/16 09:09 (Free Water) 100 ml Q6HR G-TUBE 05/01/16 18:00 06/09/16 12:00 (Duragesic 25 Mcg Patch.72 Hr) 1 patch Q3D TD 05/02/16 09:00 06/10/16 09:05 Miscellaneous Information 1 Q3D T-DERMAL 05/05/16 09:00 06/10/16 09:00 (Ativan Inj) 2 mg Q4H PRN IVP 05/02/16 16:30 05/07/16 04:42 (SEROquel) 25 mg BID PO 05/04/16 09:00 06/10/16 09:03 (Zofran Inj) 4 mg Q6H PRN IV 05/05/16 06:45 ([place] 5-325 Mg) 1 tab Q12HR PO 05/06/16 21:00 06/10/16 09:05 (KCl) 10 meq DAILY PO 05/10/16 09:30 06/10/16 09:04 (Phazyme Chew) 125 mg DAILY PRN PO 05/11/16 15:00 05/12/16 15:00 (Silvadene 1% Cream (400 Gm)) 1 applic DAILY TOPICAL 05/16/16 11:00 06/10/16 09:23 (Lyrica) 50 mg DAILY PO 05/21/16 09:00 06/10/16 09:03 (Lioresal) 10 mg Q12HR PO 05/24/16 10:45 06/10/16 09:07 (Pill Splitter) 1 ea UNSCH PRN OTHER 05/24/16 10:45 (Protonix) 40 mg DAILY PO 05/26/16 09:00 06/10/16 09:00 (D50w (Vial) Inj) 25 ml UNSCH PRN IV PUSH 05/31/16 22:00 (Glucagon Inj) 1 mg UNSCH PRN OTHER 05/31/16 22:00 (Levemir Inj) 5 units HS SQ 06/06/16 21:00 06/09/16 21:35 Date of Insertion: Apr 02, 2016 Date of Removal: May 03, 2016 Line: PICC Side: Left Location: Antecubital A/P Problem List: (1) Acute hypercapnic respiratory failure ICD Code: J96.02 Status: Acute (2) Staphylococcus aureus pneumonia ICD Code: J15.211 Status: Acute (3) Encephalopathy ICD Code: G93.40 Status: Acute (4) JACOB (obstructive sleep apnea) ICD Code: G47.33 Status: Acute (5) Diabetes mellitus type 2 in obese ICD Code: E11.9 Status: Acute (6) Morbid obesity with BMI of 50.0-59.9, adult ICD Code: E66.01 Status: Acute (7) Obesity hypoventilation syndrome ICD Code: E66.2 Status: Acute Assessment and Plan Mr. Leger is a pleasant 50 year old male with a history of sleep apnea, morbid obesity, DM 2 who was admitted to the hospital on 03/24/2016 due to lightheadedness and dizziness. Initial work up indicated hypercarbia as well as hypoxemia. His O2 sat was 78% in the ED. CTA was negative for PE. He was started on BiPAP. However, due to unsatisfactory response, patient was intubated after neuromuscular paralysis using succinylcholine. Tracheostomy was done on 04/30/2016. Patient remained in the ICU until 05/07/2016. Patient went into acute respiratory failure again on 05/27/2016 and subsequently he was transferred back to ICU. Trach was exchanged on 05/27/2016 and he remained on mechanical ventilation. He was weaned off mechanical ventilation after tolerating CPAP trials. He was placed on T piece trial and tolerated that well. He was subsequently transferred to hospitalist service on 06/05/2016. - Acute respiratory failure mixed - hypercarbic and hypoxemic. - Probable obstructive sleep apnea - Obesity hypoventilation syndrome. - s/p Tracheostomy placed 04/30, then exchanged to #6 Shiley fenestrated cuffed on 05/27/2016. - On trach collar, O2 sat 97% - Pulmonary following - Continue DuoNeb, Ipratropium neb treatments. - Pass[place] valve in place - Pneumonia with Staph Aureus - sputum cx positive for MSSA on 05/27/2016. 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 - Currently on Baclofen 10mg Q12h, Lyrica 50mg Qday, Seroquel 25mg BID, Fentanyl patch 25mcg, [place] PRN - Discontinued Oxycodone - has not used it since 05/23/2016. - Diabetes mellitus type 2 - HgbA1c 7.4 in - Currently on sliding scale insulin. Goal glucose 140-180. - Continue Levemir 5 units QHS and gradually titrate up as needed. - May need to add premeal coverage. - Nutrition: currently with PEG tube placed initially on 05/[address] Faith - 06/09-pt complains of irritation/drainage/discomfort at PEG insertion site, he is tolerating all meals and medications by mouth - PEG removed 06/09 by LIBBY Munson - Placement efforts in progress. Patient's insurance company has denied LTAC. Full code. Lovenox. Written by Jody Jose, acting as scribe for Dr. Briones on 06/10/16 at 11:30 All or portions of this note were transcribed by scribe FLEX Hughes. I , Dr. Salty Briones personally performed the history, physical exam, and medical decision making; and confirmed the accuracy of the information in the transcribed note. Authenticated by Dr. Salty Briones on 06/10/16 at 23:30. Discharge Planning Consider discharging home with [facility]. Case management to assist with discharge planning. Jody Jose PA-C Jun 10, 2016 11:02 Jody Briones DO Jun 10, 2016 23:30
[2016-06-10 17:35] LABS: BICARBONATE 37.2 MEQ/L (21.0-32.0)
[2016-06-10] MEDS: INSULIN DETEMIR 100 UNITS/ML VIAL SQ SCH (20:28)
[2016-06-11] VITALS (7 sets, daily range): BP systolic 103–125; BP diastolic 53–75; PULSE 92–110; RESP 17–20; TEMP 97.3–100.2; O2SAT 92–97
[2016-06-11] MEDS: ARTIFICIAL TEARS OPTH SOLN 15 ML BTL EACH EYE SCH ×6 (02:37→22:18)
[2016-06-11] MEDS: INSULIN ASPART SUPPLEMENTAL SCALE SQ SCH ×4 (04:59→22:32)
[2016-06-11] MEDS: ENOXAPARIN SODIUM 40 MG/0.4 ML SYRINGE SQ SCH ×2 (05:00→17:37)
[2016-06-11] MEDS: CHLORHEXIDINE 0.12% (ORAL KIT) 15 ML CUP MT SCH ×2 (08:00→20:00)
[2016-06-11] MEDS: DOCUSATE SODIUM 100 MG/10 ML UDC PO SCH ×2 (08:54→22:16)
[2016-06-11] MEDS: SENNOSIDES SYRUP 8.8 MG/5 ML CUP PO/TUBE SCH ×2 (08:54→22:16)
[2016-06-11] MEDS: POLYETHYLENE GLYCOL 17 GM PKG PO SCH ×2 (08:54→22:16)
[2016-06-11] MEDS: QUEtiapine FUMARATE 25 MG TAB PO SCH ×2 (08:55→22:16)
[2016-06-11] MEDS: PREGABALIN 25 MG CAP PO SCH (08:55)
[2016-06-11] MEDS: LACTOBACILLUS ACIDOPHILUS TAB PO SCH ×3 (08:55→17:37)
[2016-06-11] MEDS: ACETAMINOPHEN/HYDROcodone 325 MG/5 MG TAB PO SCH ×2 (08:56→22:16)
[2016-06-11] MEDS: BACLOFEN 10 MG TAB PO SCH ×2 (08:57→22:17)
[2016-06-11] MEDS: PANTOPRAZOLE SOD 40 MG DELAYED RELEASE TAB PO SCH (08:57)
[2016-06-11] MEDS: NYSTATIN 100,000 U/GM PWD 15 GM BTL TOPICAL SCH ×2 (08:59→22:18)
[2016-06-11] MEDS: BETAMETHASONE/CLOTRIMAZOLE CREAM 15 GM TOPICAL SCH ×2 (09:00→22:17)
[2016-06-11] MEDS: BENEPROTEIN POWDER 1 PACK G-TUBE SCH ×3 (09:00→17:39)
[2016-06-11] MEDS: POTASSIUM CHLORIDE 10 MEQ CONTROLLED RELEASE TAB PO SCH (09:00)
[2016-06-11] MEDS: SODIUM CHLORIDE 0.9% FLUSH 5 ML FLUSH IVF SCH (09:00)
[2016-06-11] MEDS: SILVER SULFADIAZINE 1% CR 400 GM JAR TOPICAL SCH (09:01)
--- NOTE | 2016-06-11 15:03 | HHI.PR ---
Subjective Remarks off THE VENTILATOR ALERT RESPONDS APPROPRIATELY le edema Objective Vital Signs Date Time Temp Pulse Resp B/P Pulse Ox O2 Delivery O2 Flow Rate FiO2 06/11/16 12:00 98.0 92 17 108/53 96 06/11/16 10:17 92 Trach Collar 35 06/11/16 09:56 18 06/11/16 09:56 18 06/11/16 08:00 97.9 92 17 125/63 96 06/11/16 00:00 97.3 100 19 103/60 95 06/10/16 20:24 95 Trach Collar 7.00 40 Humidified 06/10/16 20:00 96.8 101 20 113/70 95 06/10/16 19:49 97 Trach Collar 6.00 35 06/10/16 16:00 97.4 95 16 119/66 96 I/O 06/10/16 06/10/16 06/10/16 06/11/16 06/11/16 06/11/16 07:00 15:00 23:00 07:00 15:00 23:00 Intake Total 362 ml 480 ml 240 ml 2 ml Output Total 500 ml 890 ml 900 ml 600 ml Balance -500 ml -528 ml -420 ml -360 ml 2 ml Intake Oral 360 ml 480 ml 240 ml IV Total 2 ml 2 ml Output Urine Total 500 ml 890 ml 900 ml 600 ml # Bowel Movements 1 0 0 Result Diagram: 06/10/16 1615 Objective Remarks GENERAL: SKIN: Warm and dry. HEAD: Atraumatic. Normocephalic. EYES: Pupils equal and round. No scleral icterus. No injection or drainage. ENT: No nasal bleeding or discharge. Mucous membranes pink and moist. NECK: Trachea midline. No JVD. CARDIOVASCULAR: Regular rate and rhythm. RESPIRATORY: No accessory muscle use. Clear to auscultation. Breath sounds equal bilaterally. GASTROINTESTINAL: Abdomen soft, non-tender, nondistended. Hepatic and splenic margins not palpable. MUSCULOSKELETAL: Extremities without clubbing, cyanosis, or edema. No obvious deformities. NEUROLOGICAL: Awake and alert. No obvious cranial nerve deficits. Motor grossly within normal limits. Five out of 5 muscle strength in the arms and legs. Normal speech. PSYCHIATRIC: Appropriate mood and affect; insight and judgment normal. Assessment and Plan Assessment and Plan ON T PIECE RESPIRATORY FAILURE RESOLVED ARDS JACOB/CSA S/P TRACH. PLAN PULM TOILET INCREASE Activity US LE pending ON TPIECE Orlando Perry MD Jun 11, 2016 15:03
[2016-06-11] MEDS: INSULIN DETEMIR 100 UNITS/ML VIAL SQ SCH (22:33)
--- NOTE | 2016-06-11 23:43 | HHI.PR ---
Subjective Remarks Follow up for hypercarbic and hypoxemic respiratory failure. Patient is doing well. No fever, chills. He wants to see if he can go home. His brother is familiar with trach care. He believes he can manage it at home. Objective Vitals Vital Signs Date Time Temp Pulse Resp B/P Pulse Ox O2 Delivery O2 Flow Rate FiO2 06/11/16 20:00 100.2 110 20 112/56 97 06/11/16 18:00 94 Trach Collar 6.00 35 06/11/16 16:00 97.8 104 18 110/75 94 06/11/16 12:00 98.0 92 17 108/53 96 06/11/16 10:17 92 Trach Collar 35 06/11/16 09:56 18 06/11/16 09:56 18 06/11/16 08:00 97.9 92 17 125/63 96 06/11/16 00:00 97.3 100 19 103/60 95 I/O 06/10/16 06/10/16 06/10/16 06/11/16 06/11/16 06/11/16 06:59 14:59 22:59 06:59 14:59 22:59 Intake Total 362 ml 480 ml 240 ml 582 ml 320 ml Output Total 500 ml 890 ml 900 ml 600 ml 525 ml 300 ml Balance -500 ml -528 ml -420 ml -360 ml 57 ml 20 ml Intake Oral 360 ml 480 ml 240 ml 580 ml 320 ml IV Total 2 ml 2 ml Output Urine Total 500 ml 890 ml 900 ml 600 ml 525 ml 300 ml # Bowel Movements 1 0 0 0 1 Result Diagram: 06/10/16 1615 Imaging Last Impressions Lower Extremity Ultrasound 06/04/16 0000 Signed Impressions: Service Date/Time: Saturday, June 04, 2016 14:54 - CONCLUSION: 1. No DVT identified. Dc Barton MD Chest X-Ray 05/28/16 0600 Signed Impressions: Service Date/Time: Saturday, May 28, 2016 04:49 - CONCLUSION: Unchanged bibasilar densities. Wale Dalal MD Liver Ultrasound 05/09/16 0000 Signed Impressions: Service Date/Time: Monday, May 09, 2016 22:28 - CONCLUSION: 1. Enlarged, fatty liver. 2. Small stones or tumefactive sludge adherent to one of the gallbladder arcos. 3. Splenomegaly. 4. Pancreas is obscured by overlying bowel gas and patient's body habitus. Arthur Kennedy MD Abdomen X-Ray 05/01/16 0000 Signed Impressions: Service Date/Time: Sunday, May 01, 2016 17:28 - CONCLUSION: No evidence of obstruction. Feeding tube overlies the distal stomach, May have to be advanced slightly to reach the duodenum. Nick Jon MD Chest CT 03/28/16 0836 Signed Impressions: Service Date/Time: Monday, March 28, 2016 09:57 - CONCLUSION: Development areas of air bronchograms and consolidation more prominent in the right and left posterior basilar segments of the lower lobes. ET tube above the chanelle. Bernard Hartman MD CT Angiography 03/24/16 1121 Signed Impressions: Service Date/Time: Thursday, March 24, 2016 12:47 - CONCLUSION: 1. There is respiratory motion artifact but no PE is identified through most of the segmental level pulmonary arteries. 2. Mildly enlarged main pulmonary artery may indicate pulmonary arterial hypertension. 3. 11 mm left lower lobe noncalcified pulmonary nodule. Suggest correlation with any prior imaging studies that could confirm longer-term stability. If none are available consider short-term followup noncontrast chest CT in approximately 3 months. Ubaldo Rodas MD Objective Remarks GENERAL: Alert, NAD. SKIN: Warm and dry. HEAD: Normocephalic. EYES: No scleral icterus. No injection or drainage. NECK: Supple, trachea midline. No JVD or lymphadenopathy. CARDIOVASCULAR: Regular rate and rhythm without murmurs, gallops, or rubs. RESPIRATORY: Moderate air movement. No accessory muscle use. on T piece. GASTROINTESTINAL: Abdomen soft, non-tender, nondistended. MUSCULOSKELETAL: No cyanosis. Trace edema in lower ext. BACK: Nontender without obvious deformity. No CVA tenderness. Procedures 04/30/16 - tracheostomy by Dr. Reyes 05/03/16 - EGD with PEG placement by Dr. Faith 06/09/16 - PEG removal Date of Insertion: Apr 02, 2016 Date of Removal: May 03, 2016 Line: PICC Side: Left Location: Antecubital A/P Problem List: (1) Acute hypercapnic respiratory failure ICD Code: J96.02 Status: Acute (2) Staphylococcus aureus pneumonia ICD Code: J15.211 Status: Acute (3) Encephalopathy ICD Code: G93.40 Status: Acute (4) JACOB (obstructive sleep apnea) ICD Code: G47.33 Status: Acute (5) Diabetes mellitus type 2 in obese ICD Code: E11.9 Status: Acute (6) Morbid obesity with BMI of 50.0-59.9, adult ICD Code: E66.01 Status: Acute (7) Obesity hypoventilation syndrome ICD Code: E66.2 Status: Acute Assessment and Plan Mr. Leegr is a pleasant 50 year old male with a history of sleep apnea, morbid obesity, DM 2 who was admitted to the hospital on 03/24/2016 due to lightheadedness and dizziness. Initial work up indicated hypercarbia as well as hypoxemia. His O2 sat was 78% in the ED. CTA was negative for PE. He was started on BiPAP. However, due to unsatisfactory response, patient was intubated after neuromuscular paralysis using succinylcholine. Tracheostomy was done on 04/30/2016. Patient remained in the ICU until 05/07/2016. Patient went into acute respiratory failure again on 05/27/2016 and subsequently he was transferred back to ICU. Trach was exchanged on 05/27/2016 and he remained on mechanical ventilation. He was weaned off mechanical ventilation after tolerating CPAP trials. He was placed on T piece trial and tolerated that well. He was subsequently transferred to hospitalist service on 06/05/2016. - Acute respiratory failure mixed - hypercarbic and hypoxemic. - Probable obstructive sleep apnea - Obesity hypoventilation syndrome. - s/p Tracheostomy placed 04/30, then exchanged to #6 Shiley fenestrated cuffed on 05/27/2016. - On trach collar, O2 sat 97% - Pulmonary following - Continue DuoNeb, Ipratropium neb treatments. - Passy [place] valve in place - Pneumonia with Staph Aureus - sputum cx positive for MSSA on 05/27/2016. 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 - Currently on Baclofen 10mg Q12h, Lyrica 50mg Qday, Seroquel 25mg BID, Fentanyl patch 25mcg, [place] PRN - Discontinued Oxycodone - has not used it since 05/23/2016. - Diabetes mellitus type 2 - HgbA1c 7.4 in - Currently on sliding scale insulin. Goal glucose 140-180. - Continue Levemir 5 units QHS and gradually titrate up as needed. - May need to add premeal coverage. - Nutrition: currently with PEG tube placed initially on 05/[address] Faith - 06/09-pt complains of irritation/drainage/discomfort at PEG insertion site, he is tolerating all meals and medications by mouth - PEG removed 06/09 by LIBBY Munson - Placement efforts in progress. Patient's insurance company has denied LTAC. Discharging home would be somewhat unsafe unless trach is discontinued and patient can use nasal cannula or room air. Discussed with CM regarding placement options. Full code. Lovenox. Jody Briones DO Jun 11, 2016 23:43
[2016-06-12] VITALS (11 sets, daily range): BP systolic 102–128; BP diastolic 56–68; PULSE 94–116; RESP 15–22; TEMP 96.4–99.9; O2SAT 91–100
[2016-06-12] MEDS: ARTIFICIAL TEARS OPTH SOLN 15 ML BTL EACH EYE SCH ×5 (02:00→22:00)
[2016-06-12 05:42] LABS: AUTOMATED NEUTROPHIL # 10.6 TH/MM3 (1.8-7.7); BASOPHIL # 0.1 TH/MM3 (0-0.2); BASOPHIL % 0.6 % (0.0-2.0); EOSINOPHIL # 0.2 TH/MM3 (0-0.4); EOSINOPHIL % 1.8 % (0.0-4.0); HEMATOCRIT 33.1 % (39.0-51.0); HEMO FLAGS DIFF FINAL; LYMPH % 18.4 % (9.0-44.0); LYMPHOCYTE # 2.6 TH/MM3 (1.0-4.8); MEAN CELL VOLUME 85.8 FL (80.0-100.0); MEAN CORPUSCULAR HEMOGLOBIN 27.5 PG (27.0-34.0); MEAN CORPUSCULAR HGB CONC 32.1 % (32.0-36.0); MONO % 4.7 % (0.0-8.0); NEUT % 74.5 % (16.0-70.0); PLATELET COUNT 315 TH/MM3 (150-450); RED BLOOD COUNT 3.85 MIL/MM3 (4.50-5.90); RED CELL DISTRIBUTION WIDTH 17.9 % (11.6-17.2); WHITE BLOOD COUNT 14.2 TH/MM3 (4.0-11.0)
[2016-06-12 05:49] LABS: BICARBONATE 35.5 MEQ/L (21.0-32.0); POTASSIUM 3.7 MEQ/L (3.5-5.1)
[2016-06-12] MEDS: INSULIN ASPART SUPPLEMENTAL SCALE SQ SCH ×4 (05:50→20:07)
[2016-06-12] MEDS: ENOXAPARIN SODIUM 40 MG/0.4 ML SYRINGE SQ SCH ×2 (05:50→18:00)
[2016-06-12] MEDS: QUEtiapine FUMARATE 25 MG TAB PO SCH ×2 (07:44→20:07)
[2016-06-12] MEDS: PANTOPRAZOLE SOD 40 MG DELAYED RELEASE TAB PO SCH (07:44)
[2016-06-12] MEDS: ACETAMINOPHEN/HYDROcodone 325 MG/5 MG TAB PO SCH ×2 (07:44→20:07)
[2016-06-12] MEDS: BACLOFEN 10 MG TAB PO SCH ×2 (07:44→20:06)
[2016-06-12] MEDS: PREGABALIN 25 MG CAP PO SCH (07:44)
[2016-06-12] MEDS: POLYETHYLENE GLYCOL 17 GM PKG PO SCH ×2 (07:45→20:07)
[2016-06-12] MEDS: SENNOSIDES SYRUP 8.8 MG/5 ML CUP PO/TUBE SCH ×2 (07:45→20:07)
[2016-06-12] MEDS: DOCUSATE SODIUM 100 MG/10 ML UDC PO SCH ×2 (07:45→20:06)
[2016-06-12] MEDS: LACTOBACILLUS ACIDOPHILUS TAB PO SCH ×2 (07:45→13:42)
[2016-06-12] MEDS: POTASSIUM CHLORIDE 10 MEQ CONTROLLED RELEASE TAB PO SCH (07:48)
[2016-06-12] MEDS: BETAMETHASONE/CLOTRIMAZOLE CREAM 15 GM TOPICAL SCH ×2 (07:54→20:07)
[2016-06-12] MEDS: NYSTATIN 100,000 U/GM PWD 15 GM BTL TOPICAL SCH ×2 (07:54→20:07)
[2016-06-12] MEDS: SILVER SULFADIAZINE 1% CR 400 GM JAR TOPICAL SCH (07:57)
[2016-06-12] MEDS: CHLORHEXIDINE 0.12% (ORAL KIT) 15 ML CUP MT SCH ×2 (08:00→20:00)
[2016-06-12] MEDS: SODIUM CHLORIDE 0.9% FLUSH 5 ML FLUSH IVF SCH (09:00)
[2016-06-12] MEDS: BENEPROTEIN POWDER 1 PACK G-TUBE SCH ×2 (09:00→13:00)
[2016-06-12] MEDS: RESP: ALBUTEROL 2.5 MG/IPRATROPIUM 0.5 MG NEB (PRN) NEB ×2 (09:58→14:47)
--- NOTE | 2016-06-12 12:24 | RADRPT ---
EXAM DATE/TIME: 06/12/2016 11:55 [facility] COMPARISON: CHEST SINGLE AP, May 28, 2016, 4:49. INDICATIONS : Dyspnea. MEDICAL HISTORY : Diabetes mellitus type 2. SURGICAL HISTORY : None. ENCOUNTER: Subsequent ACUITY: 3 months PAIN SCORE: 0/10 LOCATION: Bilateral chest FINDINGS: Portable AP view of the chest demonstrate stable mild enlargement of the cardiac silhouette. Patient is rotated and underinflated. Tracheostomy remains present. There is opacity at the lung bases likely representing atelectasis. There is interstitial prominence bilaterally. No pleural effusion or pneum othorax is identified. Bones demonstrate no acute finding. CONCLUSION: 1. Underinflated examination with atelectasis at the lung bases. Interstitial prominence bilaterally could represent a real finding versus changes related to the marked underinflation. If it represents a true abnormality, it could represent mild interstitial edema. 2. No pleural effusion or pneumothorax is visualized. Ubaldo Rodas MD on June 12, 2016 at 12:21 Board Certified Radiologist. This report was verified electronically.
[2016-06-12] MEDS ORDERED: PROPOFOL 1000 MG/100 ML INJ 100 ML ONE (15:40)
[2016-06-12] MEDS ORDERED: MIDAZOLAM HCL 5 MG/ML VIAL (1 ML) ONE (15:41)
--- NOTE | 2016-06-12 16:27 | RADRPT ---
EXAM DATE/TIME: 06/12/2016 15:39 [facility] COMPARISON: CHEST SINGLE AP, June 12, 2016, 11:55. INDICATIONS : Post intubation MEDICAL HISTORY : Diabetes mellitus type II. SURGICAL HISTORY : unobtainable ENCOUNTER: Initial ACUITY: 1 day PAIN SCORE: Non-responsive. LOCATION: Bilateral chest FINDINGS: Portable AP view of the chest demonstrates a normal-sized cardiac silhouette. Endotracheal tube measu res approximately 11 mm from the chanelle. Lungs are underinflated with elevation of the right hemidiap hragm. There is bilateral mid and upper lung zone focal airspace consolidation with mild sparing of t he peripheries. No pleural effusion or pneumothorax is identified. The bones and soft tissues demonst rate no acute finding. CONCLUSION: 1. Endotracheal tube measures only 11 mm from the chanelle. Suggest slight retraction. 2. Abnormal perihilar airspace consolidation in a pattern characteristic of pulmonary edema. Ubaldo Rodas MD on June 12, 2016 at 16:24 Board Certified Radiologist. This report was verified electronically.
--- NOTE | 2016-06-12 16:47 | HHI.PR ---
Subjective Remarks acute respiratory failure back on vent. support Objective Vital Signs Date Time Temp Pulse Resp B/P Pulse Ox O2 Delivery O2 Flow Rate FiO2 06/12/16 16:09 100 100 06/12/16 12:00 96.4 94 15 121/64 96 06/12/16 10:01 99 Trach Collar 35 06/12/16 08:44 18 06/12/16 08:44 18 06/12/16 08:10 Trach Collar 6.00 35 Humidified 06/12/16 08:00 98.1 98 19 102/65 94 06/12/16 04:00 98.9 103 22 117/68 96 06/12/16 00:00 99.9 101 20 118/57 96 06/11/16 20:00 100.2 110 20 112/56 97 06/11/16 18:00 94 Trach Collar 6.00 35 I/O 06/11/16 06/11/16 06/11/16 06/12/16 06/12/16 06/12/16 07:00 15:00 23:00 07:00 15:00 23:00 Intake Total 240 ml 582 ml 320 ml 320 ml 625 ml Output Total 600 ml 525 ml 300 ml 650 ml 650 ml Balance -360 ml 57 ml 20 ml -330 ml -25 ml Intake Oral 240 ml 580 ml 320 ml 320 ml 625 ml IV Total 2 ml 0 ml Output Urine Total 600 ml 525 ml 300 ml 650 ml 650 ml # Bowel Movements 0 0 1 0 0 Result Diagram: 06/12/16 0450 06/12/16 0450 Objective Remarks GENERAL: SKIN: Warm and dry.on vent support HEAD: Atraumatic. Normocephalic. EYES: Pupils equal and round. No scleral icterus. No injection or drainage. ENT: No nasal bleeding or discharge. Mucous membranes pink and moist. NECK: Trachea midline. No JVD. CARDIOVASCULAR: Regular rate and rhythm. RESPIRATORY: No accessory muscle use. Clear to auscultation. Breath sounds equal bilaterally. GASTROINTESTINAL: Abdomen soft, non-tender, nondistended. Hepatic and splenic margins not palpable. MUSCULOSKELETAL: Extremities without clubbing, cyanosis, or edema. No obvious deformities. NEUROLOGICAL: Awake and alert. No obvious cranial nerve deficits. Motor grossly within normal limits. Five out of 5 muscle strength in the arms and legs. Normal speech. PSYCHIATRIC: Appropriate mood and affect; insight and judgment normal. Assessment and Plan Assessment and Plan respiratory failure morbid obesity plan vent support pulm toilet prognosis guarded Orlando Perry MD Jun 12, 2016 16:47
--- NOTE | 2016-06-12 17:20 | HHI.PR ---
Subjective Remarks Follow up for hypercarbic and hypoxemic respiratory failure. Mr. Leger complained of shortness of breath. RT provided suction and patient had breathing treatments as well. No fever, chills. Objective Vitals Vital Signs Date Time Temp Pulse Resp B/P Pulse Ox O2 Delivery O2 Flow Rate FiO2 06/12/16 16:09 100 100 06/12/16 12:00 96.4 94 15 121/64 96 06/12/16 10:01 99 Trach Collar 35 06/12/16 08:44 18 06/12/16 08:44 18 06/12/16 08:10 Trach Collar 6.00 35 Humidified 06/12/16 08:00 98.1 98 19 102/65 94 06/12/16 04:00 98.9 103 22 117/68 96 06/12/16 00:00 99.9 101 20 118/57 96 06/11/16 20:00 100.2 110 20 112/56 97 06/11/16 18:00 94 Trach Collar 6.00 35 I/O 06/11/16 06/11/16 06/11/16 06/12/16 06/12/16 06/12/16 07:00 15:00 23:00 07:00 15:00 23:00 Intake Total 240 ml 582 ml 320 ml 320 ml 625 ml Output Total 600 ml 525 ml 300 ml 650 ml 650 ml Balance -360 ml 57 ml 20 ml -330 ml -25 ml Intake Oral 240 ml 580 ml 320 ml 320 ml 625 ml IV Total 2 ml 0 ml Output Urine Total 600 ml 525 ml 300 ml 650 ml 650 ml # Bowel Movements 0 0 1 0 0 Result Diagram: 06/12/16 0450 06/12/16 0450 Imaging Last Impressions Chest X-Ray 06/12/16 0000 Signed Impressions: Service Date/Time: Sunday, June 12, 2016 15:39 - CONCLUSION: 1. Endotracheal tube measures only 11 mm from the chanelle. Suggest slight retraction. 2. Abnormal perihilar airspace consolidation in a pattern characteristic of pulmonary edema. Ubaldo Rodas MD Lower Extremity Ultrasound 06/04/16 0000 Signed Impressions: Service Date/Time: Saturday, June 04, 2016 14:54 - CONCLUSION: 1. No DVT identified. Dc Barton MD Liver Ultrasound 05/09/16 0000 Signed Impressions: Service Date/Time: Monday, May 09, 2016 22:28 - CONCLUSION: 1. Enlarged, fatty liver. 2. Small stones or tumefactive sludge adherent to one of the gallbladder arcos. 3. Splenomegaly. 4. Pancreas is obscured by overlying bowel gas and patient's body habitus. rAthur Kennedy MD Abdomen X-Ray 05/01/16 0000 Signed Impressions: Service Date/Time: Sunday, May 01, 2016 17:28 - CONCLUSION: No evidence of obstruction. Feeding tube overlies the distal stomach, May have to be advanced slightly to reach the duodenum. Nick Jon MD Chest CT 03/28/16 0836 Signed Impressions: Service Date/Time: Monday, March 28, 2016 09:57 - CONCLUSION: Development areas of air bronchograms and consolidation more prominent in the right and left posterior basilar segments of the lower lobes. ET tube above the chanelle. Bernard Hartman MD CT Angiography 03/24/16 1121 Signed Impressions: Service Date/Time: Thursday, March 24, 2016 12:47 - CONCLUSION: 1. There is respiratory motion artifact but no PE is identified through most of the segmental level pulmonary arteries. 2. Mildly enlarged main pulmonary artery may indicate pulmonary arterial hypertension. 3. 11 mm left lower lobe noncalcified pulmonary nodule. Suggest correlation with any prior imaging studies that could confirm longer-term stability. If none are available consider short-term followup noncontrast chest CT in approximately 3 months. Ubaldo Rodas MD Objective Remarks GENERAL: Alert, NAD. SKIN: Warm and dry. HEAD: Normocephalic. EYES: No scleral icterus. No injection or drainage. NECK: Supple, trachea midline. No JVD or lymphadenopathy. CARDIOVASCULAR: Regular rate and rhythm without murmurs, gallops, or rubs. RESPIRATORY: Poor air movement. No accessory muscle use. on T piece. GASTROINTESTINAL: Abdomen soft, non-tender, nondistended. MUSCULOSKELETAL: No cyanosis. Trace edema in lower ext. BACK: Nontender without obvious deformity. No CVA tenderness. Procedures 04/30/16 - tracheostomy by Dr. Reyes 05/03/16 - EGD with PEG placement by Dr. Faith 06/09/16 - PEG removal Date of Insertion: Apr 02, 2016 Date of Removal: May 03, 2016 Line: PICC Side: Left Location: Antecubital A/P Problem List: (1) Acute hypercapnic respiratory failure ICD Code: J96.02 Status: Acute (2) Staphylococcus aureus pneumonia ICD Code: J15.211 Status: Acute (3) Encephalopathy ICD Code: G93.40 Status: Acute (4) JACOB (obstructive sleep apnea) ICD Code: G47.33 Status: Acute (5) Diabetes mellitus type 2 in obese ICD Code: E11.9 Status: Acute (6) Morbid obesity with BMI of 50.0-59.9, adult ICD Code: E66.01 Status: Acute (7) Obesity hypoventilation syndrome ICD Code: E66.2 Status: Acute Assessment and Plan Mr. Leger is a pleasant 50 year old male with a history of sleep apnea, morbid obesity, DM 2 who was admitted to the hospital on 03/24/2016 due to lightheadedness and dizziness. Initial work up indicated hypercarbia as well as hypoxemia. His O2 sat was 78% in the ED. CTA was negative for PE. He was started on BiPAP. However, due to unsatisfactory response, patient was intubated after neuromuscular paralysis using succinylcholine. Tracheostomy was done on 04/30/2016. Patient remained in the ICU until 05/07/2016. Patient went into acute respiratory failure again on 05/27/2016 and subsequently he was transferred back to ICU. Trach was exchanged on 05/27/2016 and he remained on mechanical ventilation. He was weaned off mechanical ventilation after tolerating CPAP trials. He was placed on T piece trial and tolerated that well. He was subsequently transferred to hospitalist service on 06/05/2016. - Acute respiratory failure mixed - hypercarbic and hypoxemic. - Probable obstructive sleep apnea - Obesity hypoventilation syndrome. - s/p Tracheostomy placed 04/30, then exchanged to #6 Shiley fenestrated cuffed on 05/27/2016. - On trach collar, O2 sat 97% - Pulmonary following - Continue DuoNeb, Ipratropium neb treatments. - Passy Meka valve in place - We obtained CXR today. Later in the day, a code stephania was called and patient was subsequently transferred to ICU. - Pneumonia with Staph Aureus - sputum cx positive for MSSA on 05/27/2016. 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 - Currently on Baclofen 10mg Q12h, Lyrica 50mg Qday, Seroquel 25mg BID, Fentanyl patch 25mcg, [place] PRN - Discontinued Oxycodone - has not used it since 05/23/2016. - Diabetes mellitus type 2 - HgbA1c 7.4 in - Currently on sliding scale insulin. Goal glucose 140-180. - Continue Levemir 5 units QHS and gradually titrate up as needed. - May need to add premeal coverage. - Nutrition: currently with PEG tube placed initially on 05/[address] Faith - 06/09-pt complains of irritation/drainage/discomfort at PEG insertion site, he is tolerating all meals and medications by mouth - PEG removed 06/[address] Munson - Placement efforts in progress. Patient's insurance company has denied LTAC. Discharging home would be somewhat unsafe unless trach is discontinued and patient can use nasal cannula or room air. Discussed with CM regarding placement options. Full code. Lovenox. Jody Briones DO Jun 12, 2016 17:20
[2016-06-12] MEDS ORDERED: fentaNYL DRIP 250 ML IV SCH (17:45)
--- NOTE | 2016-06-12 17:56 | HHI.CCPN ---
Subjective Remarks/Hospital Course Patient is a 50 years old obese male with past medical history significant for undiagnosed sleep apnea, super morbid obesity, type 2 diabetes was brought to the emergency department on 03/24/16 after feeling light headed and dizzy. On presentation here was found to be hypoxemic and ABG showed severe hypoxemia and hypercarbia. For a recent driving physical he was diagnosed with low oxygen saturations. Patient's oxygen saturation the ED was in the low 80s, which was confirmed on ABG with a oxygen saturation of 78% and PO2 of 46. CTA negative for PE. Patient was initiated on BiPAP therapy with consult to pulmonary Dr. Crane. His oxygenation improved but he continued to be hypercapnic. Today a.m. on nasal cannula his pH was 7.26 and PCO2 was increased at 99, patient was somnolent was placed back on BiPAP and repeat ABG at noon showed pH 7.26 PCO2 98 and pO2 70. This was on 16 BiPAP with FiO2 50%. Critical care was consulted. On my evaluation patient is somnolent but wakes up easily. I reduced the PEEP on BiPAP from 12-7 to facilitate better ventilation. A repeat ANG showed only minimal improvement, so decision made to intubate patient. Glidescope with #4 blade was used. Only propofol was used for induction. Initially I had a Grade 1-2 view, but I was unable to pass tube through the vocal cord to trachea in two attempts. Tube slipped out of Laryngeal opening both times. Dr Garrett intubated patient after NM paralysis with succinylcholine. Post intubation ABG showed improvement in hypercapnia and oxygenation. 03/27/16: Patient remains intubated heavily sedated with propofol and fentanyl. Remained severely hypoxemic on 100% FiO2, PEEP12, chest x-ray shows bibasilar infiltrates. Flagyl added. We'll give 1 dose of vancomycin-Adjust antibiotics according to cultures. Patient super morbid obesity may prevent Prone therapy 03/28: Remains hypoxic but ABG shows marginal improvement in oxygenation. WBC increasing 20.1 today. Start vancomycin scheduled. 03/29: Oxygenation is slightly improved. FiO2 reduced to 50% today. Chest x- ray remains unchanged. On sedation hold patient does wake up and follow commands. WBC count remains at 20 03/30 No acute events overnight. Sedated with Diprivan and Fentanyl. Had T: 100.1 at 4 am. WBC trending down 15.9 today from 20. 03/31 Patient remains sedated with Diprivan, Fentanyl and intubated. Tmax 100.1. Patient required increase O2 overnight now on ACV with PEEP: 12 and FIO2 70%. 04/01: Tmax 99.7. No bowel movement since admission. Patient has bowel sounds. Arousable on the ventilator. We'll attempt prone the patient paralyzed to increase oxygenation status. 04/02: MAXIMUM TEMPERATURE 100.9. Currently 97.7. 5 10 cc stools overnight. Placed on Roto prone yesterday. Saturations currently 94% on Flolan. Diuresed overnight. Creatinine still within normal limits. 04/03: Tmax 101. Currently 99.1. Positive BM. Did not tolerate not being unprone this AM. Saturations much improved prone. Tolerating tube feeding. 04/04: Tmax 100.8. Currently 98.8. +2 L past 24 hours. Attempt to on prone today. Positive BM. C. difficile negative. Remains paralyzed. 04/05: Remains sedated, orally intubated on neuromuscular blockade on mechanical ventilation. Remains on Rota prone bed. On insulin drip. 04/06: Remains sedated, orally intubated on neuromuscular blockade, on mechanical ventilation. Remains on Rota prone bed. Insulin drip continues. 04/07 Patient remains on Rotoprone bed sedated with Diprivan, Versed, Fentanyl in addition patient is on Nimbex. Afebrile. On Insulin drip 5u/hr. 04/08 Patient remains sedated and intubated and on Nimbex. Off insulin drip. On PRVC/AC with RR 15, TV 550, IT: 1.65, PEEP: 15 and FIO2 100%. T: 100.2 at 4 am. 04/09 Patient is sedated, intubated and remains on neuromuscular blockade. Vent setting unchanged. afebrile. 04/10 Patient remains sedated and intubated and on Nimbex. On PRVC/AC, RR 15, TV 500, PEEP: 15, FIO2 90%, IT:1.65, on Flolan drip. Remains on Rotoprone bed. 04/11 minimal improvement in oxygenation, FiO2 now at 75 - continue to improve oxygenation, worsening CXR 04/13/10 continue to improve oxygenation DC'd prone position last night 04/14- improving oxygenation, Nimbex discontinued as well as prone position 04/16 Patient is sedated with Versed and Fentanyl and intubated. Off rotoprone bed. On PRVC/AC RR 15, TV 550, IT 1.65, PEEP:15, FIO2 50%. 04/17 Patient remains sedated with Versed and Fentanyl. Afebrile, tolerating tube feeds 04/18 No acute events overnight Sedated and intubated. Afebrile. On PRVC/AC RR 15 , TV 550, IT 1.65, PEEP:15, FIO2 60% 04/19: Spiking fever up to 101, pancultured and 1 dose of vancomycin given by ID. On weaning doses of Flolan. FiO2 down to 50% I have reduced PEEP to 14. Remains critically ill 04/20: No fever. Sputum cx with Staph -S pending. Fio2 50% PEEP remains at 14. TV increased to 650 to improve lung recruitment. On weaning dose of Flolan-DC after current bag 04/21:Afebrile. Hyponatremia resolving, the patient will be placed on free water flushes. 04/22:The patient had an episode of acute desaturation requiring FiO2 increased to 90%. Stat chest x-ray stat ABG aggressive pulmonary toileting and suctioning , resolution of symptoms FiO2 now 55%. ABGs within normal limits. 04/23: Tmax 99.5. Currently afebrile. O2 sat 50%. PEEP down to 13. One small bowel movement overnight. 04/24: Currently afebrile. O2 sat 45%. PEEP to 12. One BM. Tolerating tube feeds. 04/25: Afebrile. PEEP down to 11. Positive BM. Tolerating tube feeds. Awake on the ventilator with eyes open. 04/26: Afebrile. PEEP down to 10. Time to feeding. Awake and alert eyes open. 04/27: Suspected fever overnight. One bowel movement documented. Will decreased PEEP to 9. Awake and alert and follows commands. 04/28: Tmax 99.3. Currently afebrile. FiO2 increased to 70%. PEEP to 10. Awake and does follow commands. Positive BM 4 yesterday. 04/29: FiO2 down to 55%. Peak systolic 10. Awake and does follow commands. Positive BM 1 yesterday. Tolerating tube feeding. 04/30: No acute issues overnight . The patient continues to be sedated with plans for tracheostomy in the OR today. The patient follows commands when on sedation vacation. 05/01: Postop day 1 post tracheostomy tube placement, no issues overnight. Plan for CPAP trials today. 05/02: Afebrile. The patient continues on CPAP trial 15/5 , FiO2 .45%. The patient alert and responsive this a.m., continues on Precedex and fentanyl infusion. By mouth narcotics, and fentanyl patch instituted to transition all fentanyl infusion. PEG tube placement pending. 05/03: The patient's fentanyl infusion was discontinued last evening. Multimodal analgesia initiated. Patient continues on Precedex infusion, GCS 14 T. Plans today for PEG placement later on this afternoon. No acute issues overnight. 05/04 Tmax 101.0. The patient's PICC line was removed, peripheral IVs initiated. Blood, urine and sputum cultures obtained. Methylprednisolone continues to be weaned currently at 20 mg daily. Plan for weaning of Precedex infusion off today. Seroquel 25 mg twice a day added to medication regimen. The patient continues on CPAP trials. 05/05: Tmax 99.1. Overnight the patient was maintained on CPAP trials of 15/5/40% , the patient's respiratory rate continues to be low 30s, tolerated well. The sake early this a.m. the patient was noticed to have a episode of nausea and vomiting Zofran instituted. The patient continues on scheduled Reglan TID. Blood , sputum and urine cultures were obtained yesterday secondary to elevated temperature awaiting results. 05/06: The patient remains on T piece greater than 48 hours. The patient is alert oriented and cooperative. Trach site without erythema or drainage. Patient was noticed over the last 12 hours to have multiple bowel movements or in the night. Will D/C MiraLAX, lactulose and Reglan will be discontinued. Plan for possible transfer to LTAC facility. 05/07 no acute issues overnight tolerating TPs 05/27 shortly after midnight rapid response team was called due to patient's respiratory distress and hypercarbic respiratory failure with hypoxemia and cyanosis 05/27: Tracheostomy was exchanged this morning to a #6 Shiley fenestrated cuffed. Currently on PRVC with PEEP of 10. Saturations are much improved. Awake and alert and following commands. Requesting diet. 05/28: Awake and alert. On mechanical ventilation via tracheostomy. Following commands. 05/29: Awake and alert. On mechanical ventilation via tracheostomy. Tolerating PO diet. Following commands. 05/30: Awake and alert. On mechanical ventilation via tracheostomy. Tolerating by mouth diet. Following commands. 05/31: Remains on mechanical ventilation via tracheostomy. Tolerating C Pap/ pressure support. Following commands. Tolerating by mouth diet. 06/01: Remains on mechanical ventilation via tracheostomy. Awake and alert. Tolerated C Pap and pressure support however gets extremely tachypneic on dropping pressure-support to +5. Tolerating by mouth diet 06/02: Tmax 99.5. Currently 99. Currently on T piece trial. Condom catheter placed. Subjective 06/03: Currently T piece trial. Saturations around 98 %. Appears comfortable. He is in no acute distress. No issues overnight 06/12: Hypoxemic respiratory failure and difficulty bag ventilating. Rushed to ICU with acceptable sats and immediately intubated through the mouth. Trach tube removed. Good ventilation immediately restored. CXR with diffuse pulmonary edema - question negative pressure. Objective Vital Signs Date Time Temp Pulse Resp B/P Pulse Ox O2 Delivery O2 Flow Rate FiO2 06/12/16 16:09 100 100 06/12/16 12:00 96.4 94 15 121/64 06/12/16 10:01 Trach Collar 06/12/16 08:10 6.00 Intake and Output 06/11/16 06/11/16 06/12/16 08:00 16:00 00:00 Intake Total 240 ml 582 ml 320 ml Output Total 600 ml 525 ml 300 ml Balance -360 ml 57 ml 20 ml Result Diagram: 06/12/16 0450 06/12/16 0450 Imaging Last Impressions Chest X-Ray 05/28/16 0600 Signed Impressions: Service Date/Time: Saturday, May 28, 2016 04:49 - CONCLUSION: Unchanged bibasilar densities. Wale Dalal MD Liver Ultrasound 05/09/16 0000 Signed Impressions: Service Date/Time: Monday, May 09, 2016 22:28 - CONCLUSION: 1. Enlarged, fatty liver. 2. Small stones or tumefactive sludge adherent to one of the gallbladder arcos. 3. Splenomegaly. 4. Pancreas is obscured by overlying bowel gas and patient's body habitus. Arthur Kennedy MD Abdomen X-Ray 05/01/16 0000 Signed Impressions: Service Date/Time: Sunday, May 01, 2016 17:28 - CONCLUSION: No evidence of obstruction. Feeding tube overlies the distal stomach, May have to be advanced slightly to reach the duodenum. Nick Jon MD Chest CT 03/28/16 0836 Signed Impressions: Service Date/Time: Monday, March 28, 2016 09:57 - CONCLUSION: Development areas of air bronchograms and consolidation more prominent in the right and left posterior basilar segments of the lower lobes. ET tube above the chanelle. Bernard Hartman MD CT Angiography 03/24/16 1121 Signed Impressions: Service Date/Time: Thursday, March 24, 2016 12:47 - CONCLUSION: 1. There is respiratory motion artifact but no PE is identified through most of the segmental level pulmonary arteries. 2. Mildly enlarged main pulmonary artery may indicate pulmonary arterial hypertension. 3. 11 mm left lower lobe noncalcified pulmonary nodule. Suggest correlation with any prior imaging studies that could confirm longer-term stability. If none are available consider short-term followup noncontrast chest CT in approximately 3 months. Ubaldo Rodas MD Objective Remarks GENERAL: 50-year-old morbidly obese male, sever distress SKIN: Integrity intact. Warm and dry. HEAD: Atraumatic. Normocephalic. EYES: Pupils equal round and slightly reactive about 2 millimeters bilaterally. ENT: Tracheostomy in situ no drainage or erythema around the site. Bag mask with considerable resistance. No subcutaneous air in neck CARDIOVASCULAR: Distant heart sounds, tachycardia. RRR. S1, S2. No S4. Without murmur RESPIRATORY: Status post percutaneous tracheostomy. Diminished breath sounds due to body habitus. GASTROINTESTINAL: Abdomen soft, obese, nontender. Severe central obesity, PEG tube without erythema or drainage MUSCULOSKELETAL: Extremities with trace to 1+ nonpitting bilateral lower extremity edema. NEUROLOGICAL: Anxious, opens eyes, tracks. Procedures 04/30/16 - tracheostomy by Dr. Reyes 05/03/16 - EGD with PEG placement by Dr. 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 Ventilator bundle Bronchial dilator therapy every 6 hours With Atrovent nebs every 2 hours when necessary dyspnea Pulmonary Dr. Crane Re-intubation through mouth. CV: Monitor HR and BP keep MAP>65mmHg 2-D echo 03/26 EF 60%. No regional wall motion abnormality. Mild MR/TR. /FEN: Monitor renal function, I/O's, electrolytes replacement per protocol. GI: Constipation-resolved Moderate protein calorie malnutrition Nausea and vomiting Continue oral diet starting 05/29 Protonix 40mg daily Senna and Colace twice a day PEG tube placement- 05/03 Zofran 4 mg every 6 hours when necessary ID: Staph aureus pneumonia - resolved Pertinent culture 05/27 - sputum - MSSA 04/27 - pansensitive staph aureus 04/27 blood cultures 2 negative 04/25 - urine -no growth 04/19 - blood cultures 2 out of 4 - staph aureus 04/19 - sputum - staph aureus 04/08 - sputum - staph aureus 04/03 - sputum - staph aureus 03/30 - sputum- -staph aureus 03/27 - sputum - staph aureus 03/26 - blood - staph hominis On vancomycin 2 g IV every 12 are since 04/19 - 04/29 Azactam 04/27 through 04/29 Heme: Leukocytosis Monitor CBC/coags Monitor WBC labs every 3 days, unless clinically indicated. Repeat today Endo: Diabetes mellitus SSI for glycemic control with sliding scale insulin every 4 hours Levemir insulin 5 U hs, q6h SSI MSK Morbid obesity Weight loss encouraged DVT, GI prophylaxis -Bilateral lower extremity SCDs. IV Protonix 40 mg daily. Lovenox 40 mg sq BID LINES: -New SCV Left CVL placed 06/12 Overall impression: He has become critically ill with diffuse pulmonary edema and hypoxemic respiratory failure. Prognosis guarded. Critical Care 45 mins aside from procedures. Jv Mathews MD Jun 12, 2016 17:56
[2016-06-12] MEDS: PROPOFOL 1000 MG/100 ML INJ 100 ML IV SCH ×4 (18:00→23:46)
--- NOTE | 2016-06-12 18:01 | PD.PROCEDR ---
Procedure Note Procedure DX: Hypoxemic Respiratory Failure (J96.01) OP: 1. Orotracheal Intubation (02571) 2. Insertion Central Venous Line (86415) 3. Insertion Arterial Line (88315) Procedure: Rushed to ICU with bag ventilation via indwelling trach. Difficulty ventilating and unable to suction past ball-valve mucus plug. Intubated orally with 8.0 tube. Position confirmed with CO2 detection, breath sounds, improved sats. Left chest prepped and draped. Left subclavian vein cannulated using 20 gauge spinal needle and wire advanced. Catheter passed over wire to 19 cm. Lumens aspirated and flushed. Dressing applied. Twin test normal right hand. Right wrist supinated, prepped and draped. Right radial artery cannulated with 20 gauge needle and wire advanced. Cannula advanced for 3 cm and good waveform observed. Dressing applied. Jv Mathews MD Jun 12, 2016 18:01
[2016-06-12 18:10] LABS: BLOOD GAS BASE EXCESS 8.5 mmol/L (-2-2); BLOOD GAS CARBOXYHEMOGLOBIN 1.3 % (0-4); BLOOD GAS HCO3 34 mmol/L (22-26); BLOOD GAS METHEMOGLOBIN 0.8 % (0-2); BLOOD GAS O2 HGB SATURATION 95 % (90-100); BLOOD GAS OXYGEN CONTENT 15.6 Vol % (12.0-20.0); BLOOD GAS PCO2 65 mmHg (38-42); BLOOD GAS PO2 98 mmHg (61-120); BLOOD GAS TOTAL HGB 11.6 G/DL (12.0-16.0); CRITICAL VALUE YES; DRAW SITE ART LINE; FIO2 100 %; OXYGEN DEVICE VENTILATOR; STAT YES; TEMP CORR TO 98.6
--- NOTE | 2016-06-12 18:19 | RADRPT ---
EXAM DATE/TIME: 06/12/2016 17:53 [facility] COMPARISON: CHEST SINGLE AP, June 12, 2016, 15:39. INDICATIONS : Central line placement. Respiratory failure and pulmonary infiltrates MEDICAL HISTORY : Diabetes mellitus type 2. SURGICAL HISTORY : Tracheostomy ENCOUNTER: Subsequent ACUITY: 2 days PAIN SCORE: Non-responsive. LOCATION: Bilateral chest FINDINGS: A single AP supine portable view of the chest was obtained and demonstrates interval placement of a l eft-sided central venous catheter with the tip projected over the superior vena cava. Endotracheal tu be remains in place with the tip just above the level the chanelle. There's been placement of a nasogas tric tube which is seen coursing through the esophagus and into the stomach. The tip is projected ove r the distal stomach. Consolidative infiltrate remains in both upper lobes and perihilar regions. The re is moderate cardiomegaly. There is no distinct effusion. There are multiple overlying the echocard iogram leads. CONCLUSION: 1. Interval placement of left-sided central venous line with no evidence of pneumothorax. 2. Interval placement of nasogastric tube. 3. No significant change in the bilateral consolidative pulmonary infiltrates most consistent with pu lmonary edema. Genaro Garcia MD on June 12, 2016 at 18:16 Board Certified Radiologist. This report was verified electronically.
--- NOTE | 2016-06-12 18:22 | RADRPT ---
EXAM DATE/TIME: 06/12/2016 17:57 [facility] COMPARISON: ABDOMEN KUB ONLY, April 26, 2016, 14:58. INDICATIONS : Nasogastric tube placement. Respiratory failure. MEDICAL HISTORY : Diabetes mellitus type II. SURGICAL HISTORY : Tracheostomy ENCOUNTER: Subsequent ACUITY: 2 days PAIN SCORE: Non-responsive. LOCATION: Bilateral Abdomen FINDINGS: Supine view of the abdomen was performed. The abdominal bowel gas pattern is normal. No abnormal ma sses, calcifications, or organomegaly is seen. The osseous structures are unremarkable. A nasogastri c tube is present with the tip projected over the distal stomach. The pelvis was cut off both views. CONCLUSION: 1. Nasogastric tube in place with the tip projected over the distal stomach. 2. Unremarkable bowel gas pattern. Genaro Garcia MD on June 12, 2016 at 18:18 Board Certified Radiologist. This report was verified electronically.
[2016-06-12 19:25] LABS: BACTERIA, URINE RARE /hpf; BLOOD, URINE NEG (NEG); GLUCOSE,URINE NEG (NEG); HYALINE CAST, URINE 29 /lpf (RARE); KETONE, URINE NEG (NEG); NITRITE,URINE NEG (NEG); PH, URINE 6.5 (5.0-8.5); SQUAMOUS EPITHELIAL CELL URINE <1 /hpf (0-5); URINE COLOR YELLOW (YELLW/STRAW)
[2016-06-12 19:26] LABS: COMMENT (UR) CATH-CULTURE IND; CULTURE IF INDICATED CATH CULTURE IND
[2016-06-12] MEDS ORDERED: CHLORHEXIDINE 0.12% (ORAL KIT) 15 ML CUP MT SCH (20:00)
[2016-06-12] MEDS: INSULIN DETEMIR 100 UNITS/ML VIAL SQ SCH (20:07)
[2016-06-13] VITALS (14 sets, daily range): BP systolic 98–110; BP diastolic 48–68; PULSE 85–101; RESP 18–23; TEMP 100.2–100.8; O2SAT 92–99
[2016-06-13] MEDS: ARTIFICIAL TEARS OPTH SOLN 15 ML BTL EACH EYE SCH ×6 (02:00→22:00)
[2016-06-13] MEDS: PROPOFOL 1000 MG/100 ML INJ 100 ML IV SCH ×3 (03:34→17:09)
[2016-06-13 04:06] LABS: BICARBONATE 37.2 MEQ/L (21.0-32.0); POTASSIUM 3.8 MEQ/L (3.5-5.1)
[2016-06-13 04:38] LABS: BLOOD GAS BASE EXCESS 9.6 mmol/L (-2-2); BLOOD GAS CARBOXYHEMOGLOBIN 1.4 % (0-4); BLOOD GAS HCO3 35 mmol/L (22-26); BLOOD GAS METHEMOGLOBIN 0.8 % (0-2); BLOOD GAS O2 HGB SATURATION 90 % (90-100); BLOOD GAS OXYGEN CONTENT 13.4 Vol % (12.0-20.0); BLOOD GAS PCO2 57 mmHg (38-42); BLOOD GAS PO2 64 mmHg (61-120); BLOOD GAS TOTAL HGB 10.6 G/DL (12.0-16.0); CRITICAL VALUE YES; DRAW SITE ART LINE; FIO2 70 %; OXYGEN DEVICE VENTILATOR; STAT NO; TEMP CORR TO 98.6; VENT SETTINGS PRVC/AC
[2016-06-13] MEDS: ENOXAPARIN SODIUM 40 MG/0.4 ML SYRINGE SQ SCH ×2 (05:05→16:52)
[2016-06-13] MEDS: INSULIN ASPART SUPPLEMENTAL SCALE SQ SCH ×4 (07:00→20:46)
[2016-06-13] MEDS: BACLOFEN 10 MG TAB PO SCH ×2 (08:18→20:43)
[2016-06-13] MEDS: BENEPROTEIN POWDER 1 PACK G-TUBE SCH ×3 (08:18→16:55)
[2016-06-13] MEDS: SENNOSIDES SYRUP 8.8 MG/5 ML CUP PO/TUBE SCH ×2 (08:18→20:43)
[2016-06-13] MEDS: POLYETHYLENE GLYCOL 17 GM PKG PO SCH ×2 (08:18→20:44)
[2016-06-13] MEDS: QUEtiapine FUMARATE 25 MG TAB PO SCH ×2 (08:19→20:43)
[2016-06-13] MEDS: PANTOPRAZOLE SOD 40 MG DELAYED RELEASE TAB PO SCH (08:19)
[2016-06-13] MEDS: LACTOBACILLUS ACIDOPHILUS TAB PO SCH ×4 (08:19→16:52)
[2016-06-13] MEDS: DOCUSATE SODIUM 100 MG/10 ML UDC PO SCH ×2 (08:21→20:43)
[2016-06-13] MEDS: POTASSIUM CHLORIDE 10 MEQ CONTROLLED RELEASE TAB PO SCH (08:21)
[2016-06-13] MEDS: CHLORHEXIDINE 0.12% (ORAL KIT) 15 ML CUP MT SCH ×2 (08:22→20:44)
[2016-06-13] MEDS: PREGABALIN 25 MG CAP PO SCH (08:22)
[2016-06-13] MEDS: REMOVE OLD PATCH T-DERMAL SCH (08:23)
[2016-06-13] MEDS: fentaNYL 25 MCG/HR PATCH TD SCH (08:23)
[2016-06-13] MEDS: ACETAMINOPHEN/HYDROcodone 325 MG/5 MG TAB PO SCH ×2 (08:24→20:45)
[2016-06-13] MEDS: SODIUM CHLORIDE 0.9% FLUSH 5 ML FLUSH IVF SCH (08:42)
[2016-06-13] MEDS: SILVER SULFADIAZINE 1% CR 400 GM JAR TOPICAL SCH (09:00)
[2016-06-13] MEDS: NYSTATIN 100,000 U/GM PWD 15 GM BTL TOPICAL SCH ×2 (09:08→20:46)
[2016-06-13] MEDS: BETAMETHASONE/CLOTRIMAZOLE CREAM 15 GM TOPICAL SCH ×2 (09:09→20:46)
[2016-06-13] MEDS: ACETAMINOPHEN 650 MG/20.3 ML UDC PO PRN (09:35)
--- NOTE | 2016-06-13 13:22 | HHI.CCPN ---
Subjective Remarks/Hospital Course Patient is a 50 years old obese male with past medical history significant for undiagnosed sleep apnea, super morbid obesity, type 2 diabetes was brought to the emergency department on 03/24/16 after feeling light headed and dizzy. On presentation here was found to be hypoxemic and ABG showed severe hypoxemia and hypercarbia. For a recent driving physical he was diagnosed with low oxygen saturations. Patient's oxygen saturation the ED was in the low 80s, which was confirmed on ABG with a oxygen saturation of 78% and PO2 of 46. CTA negative for PE. Patient was initiated on BiPAP therapy with consult to pulmonary Dr. Crane. His oxygenation improved but he continued to be hypercapnic. Today a.m. on nasal cannula his pH was 7.26 and PCO2 was increased at 99, patient was somnolent was placed back on BiPAP and repeat ABG at noon showed pH 7.26 PCO2 98 and pO2 70. This was on 16 BiPAP with FiO2 50%. Critical care was consulted. On my evaluation patient is somnolent but wakes up easily. I reduced the PEEP on BiPAP from 12-7 to facilitate better ventilation. A repeat ANG showed only minimal improvement, so decision made to intubate patient. Glidescope with #4 blade was used. Only propofol was used for induction. Initially I had a Grade 1-2 view, but I was unable to pass tube through the vocal cord to trachea in two attempts. Tube slipped out of Laryngeal opening both times. Dr Garrett intubated patient after NM paralysis with succinylcholine. Post intubation ABG showed improvement in hypercapnia and oxygenation. 03/27/16: Patient remains intubated heavily sedated with propofol and fentanyl. Remained severely hypoxemic on 100% FiO2, PEEP12, chest x-ray shows bibasilar infiltrates. Flagyl added. We'll give 1 dose of vancomycin-Adjust antibiotics according to cultures. Patient super morbid obesity may prevent Prone therapy 03/28: Remains hypoxic but ABG shows marginal improvement in oxygenation. WBC increasing 20.1 today. Start vancomycin scheduled. 03/29: Oxygenation is slightly improved. FiO2 reduced to 50% today. Chest x- ray remains unchanged. On sedation hold patient does wake up and follow commands. WBC count remains at 20 03/30 No acute events overnight. Sedated with Diprivan and Fentanyl. Had T: 100.1 at 4 am. WBC trending down 15.9 today from 20. 03/31 Patient remains sedated with Diprivan, Fentanyl and intubated. Tmax 100.1. Patient required increase O2 overnight now on ACV with PEEP: 12 and FIO2 70%. 04/01: Tmax 99.7. No bowel movement since admission. Patient has bowel sounds. Arousable on the ventilator. We'll attempt prone the patient paralyzed to increase oxygenation status. 04/02: MAXIMUM TEMPERATURE 100.9. Currently 97.7. 5 10 cc stools overnight. Placed on Roto prone yesterday. Saturations currently 94% on Flolan. Diuresed overnight. Creatinine still within normal limits. 04/03: Tmax 101. Currently 99.1. Positive BM. Did not tolerate not being unprone this AM. Saturations much improved prone. Tolerating tube feeding. 04/04: Tmax 100.8. Currently 98.8. +2 L past 24 hours. Attempt to on prone today. Positive BM. C. difficile negative. Remains paralyzed. 04/05: Remains sedated, orally intubated on neuromuscular blockade on mechanical ventilation. Remains on Rota prone bed. On insulin drip. 04/06: Remains sedated, orally intubated on neuromuscular blockade, on mechanical ventilation. Remains on Rota prone bed. Insulin drip continues. 04/07 Patient remains on Rotoprone bed sedated with Diprivan, Versed, Fentanyl in addition patient is on Nimbex. Afebrile. On Insulin drip 5u/hr. 04/08 Patient remains sedated and intubated and on Nimbex. Off insulin drip. On PRVC/AC with RR 15, TV 550, IT: 1.65, PEEP: 15 and FIO2 100%. T: 100.2 at 4 am. 04/09 Patient is sedated, intubated and remains on neuromuscular blockade. Vent setting unchanged. afebrile. 04/10 Patient remains sedated and intubated and on Nimbex. On PRVC/AC, RR 15, TV 500, PEEP: 15, FIO2 90%, IT:1.65, on Flolan drip. Remains on Rotoprone bed. 04/11 minimal improvement in oxygenation, FiO2 now at 75 - continue to improve oxygenation, worsening CXR 04/13/10 continue to improve oxygenation DC'd prone position last night 04/14- improving oxygenation, Nimbex discontinued as well as prone position 04/16 Patient is sedated with Versed and Fentanyl and intubated. Off rotoprone bed. On PRVC/AC RR 15, TV 550, IT 1.65, PEEP:15, FIO2 50%. 04/17 Patient remains sedated with Versed and Fentanyl. Afebrile, tolerating tube feeds 04/18 No acute events overnight Sedated and intubated. Afebrile. On PRVC/AC RR 15 , TV 550, IT 1.65, PEEP:15, FIO2 60% 04/19: Spiking fever up to 101, pancultured and 1 dose of vancomycin given by ID. On weaning doses of Flolan. FiO2 down to 50% I have reduced PEEP to 14. Remains critically ill 04/20: No fever. Sputum cx with Staph -S pending. Fio2 50% PEEP remains at 14. TV increased to 650 to improve lung recruitment. On weaning dose of Flolan-DC after current bag 04/21:Afebrile. Hyponatremia resolving, the patient will be placed on free water flushes. 04/22:The patient had an episode of acute desaturation requiring FiO2 increased to 90%. Stat chest x-ray stat ABG aggressive pulmonary toileting and suctioning , resolution of symptoms FiO2 now 55%. ABGs within normal limits. 04/23: Tmax 99.5. Currently afebrile. O2 sat 50%. PEEP down to 13. One small bowel movement overnight. 04/24: Currently afebrile. O2 sat 45%. PEEP to 12. One BM. Tolerating tube feeds. 04/25: Afebrile. PEEP down to 11. Positive BM. Tolerating tube feeds. Awake on the ventilator with eyes open. 04/26: Afebrile. PEEP down to 10. Time to feeding. Awake and alert eyes open. 04/27: Suspected fever overnight. One bowel movement documented. Will decreased PEEP to 9. Awake and alert and follows commands. 04/28: Tmax 99.3. Currently afebrile. FiO2 increased to 70%. PEEP to 10. Awake and does follow commands. Positive BM 4 yesterday. 04/29: FiO2 down to 55%. Peak systolic 10. Awake and does follow commands. Positive BM 1 yesterday. Tolerating tube feeding. 04/30: No acute issues overnight . The patient continues to be sedated with plans for tracheostomy in the OR today. The patient follows commands when on sedation vacation. 05/01: Postop day 1 post tracheostomy tube placement, no issues overnight. Plan for CPAP trials today. 05/02: Afebrile. The patient continues on CPAP trial 15/5 , FiO2 .45%. The patient alert and responsive this a.m., continues on Precedex and fentanyl infusion. By mouth narcotics, and fentanyl patch instituted to transition all fentanyl infusion. PEG tube placement pending. 05/03: The patient's fentanyl infusion was discontinued last evening. Multimodal analgesia initiated. Patient continues on Precedex infusion, GCS 14 T. Plans today for PEG placement later on this afternoon. No acute issues overnight. 05/04 Tmax 101.0. The patient's PICC line was removed, peripheral IVs initiated. Blood, urine and sputum cultures obtained. Methylprednisolone continues to be weaned currently at 20 mg daily. Plan for weaning of Precedex infusion off today. Seroquel 25 mg twice a day added to medication regimen. The patient continues on CPAP trials. 05/05: Tmax 99.1. Overnight the patient was maintained on CPAP trials of 15/5/40% , the patient's respiratory rate continues to be low 30s, tolerated well. The sake early this a.m. the patient was noticed to have a episode of nausea and vomiting Zofran instituted. The patient continues on scheduled Reglan TID. Blood , sputum and urine cultures were obtained yesterday secondary to elevated temperature awaiting results. 05/06: The patient remains on T piece greater than 48 hours. The patient is alert oriented and cooperative. Trach site without erythema or drainage. Patient was noticed over the last 12 hours to have multiple bowel movements or in the night. Will D/C MiraLAX, lactulose and Reglan will be discontinued. Plan for possible transfer to LTAC facility. 05/07 no acute issues overnight tolerating TPs 05/27 shortly after midnight rapid response team was called due to patient's respiratory distress and hypercarbic respiratory failure with hypoxemia and cyanosis 05/27: Tracheostomy was exchanged this morning to a #6 Shiley fenestrated cuffed. Currently on PRVC with PEEP of 10. Saturations are much improved. Awake and alert and following commands. Requesting diet. 05/28: Awake and alert. On mechanical ventilation via tracheostomy. Following commands. 05/29: Awake and alert. On mechanical ventilation via tracheostomy. Tolerating PO diet. Following commands. 05/30: Awake and alert. On mechanical ventilation via tracheostomy. Tolerating by mouth diet. Following commands. 05/31: Remains on mechanical ventilation via tracheostomy. Tolerating C Pap/ pressure support. Following commands. Tolerating by mouth diet. 06/01: Remains on mechanical ventilation via tracheostomy. Awake and alert. Tolerated C Pap and pressure support however gets extremely tachypneic on dropping pressure-support to +5. Tolerating by mouth diet 06/02: Tmax 99.5. Currently 99. Currently on T piece trial. Condom catheter placed. Subjective 06/03: Currently T piece trial. Saturations around 98 %. Appears comfortable. He is in no acute distress. No issues overnight 06/12: Hypoxemic respiratory failure and difficulty bag ventilating. Rushed to ICU with acceptable sats and immediately intubated through the mouth. Trach tube removed. Good ventilation immediately restored. CXR with diffuse pulmonary edema - question negative pressure. 06/13: Persistent diffuse infiltrates, MSSA sputum, start abx. Hydrate for oliguria. Convert to APRV for recruitment. Objective Vital Signs Date Time Temp Pulse Resp B/P Pulse Ox O2 Delivery O2 Flow Rate FiO2 06/13/16 12:00 100.6 96 18 98/68 96 06/13/16 12:00 65 06/12/16 19:00 Mechanical Ventilator 06/12/16 08:10 6.00 Intake and Output 06/12/16 06/12/16 06/13/16 08:00 16:00 00:00 Intake Total 320 ml 625 ml 186 ml Output Total 650 ml 650 ml 300 ml Balance -330 ml -25 ml -114 ml Result Diagram: 06/12/16 0450 06/13/16 0330 Other Results Laboratory Tests Test 06/12/16 06/13/16 18:00 04:30 Blood Gas Puncture Site ART LINE ART LINE Blood Gas Patient Temperature 98.6 98.6 Blood Gas HCO3 34 mmol/L 35 mmol/L (22-26) (22-26) Blood Gas Base Excess 8.5 mmol/L 9.6 mmol/L (-2-2) (-2-2) Blood Gas Oxygen Saturation 95 % (90-100) 90 % (90-100) Arterial Blood pH 7.34 7.40 (7.380-7.420) (7.380-7.420) Arterial Blood Partial 65 mmHg (38-42) 57 mmHg (38-42) Pressure CO2 Arterial Blood Partial 98 mmHg 64 mmHg Pressure O2 (61-120) (61-120) Arterial Blood Oxygen Content 15.6 Vol % 13.4 Vol % (12.0-20.0) (12.0-20.0) Arterial Blood 1.3 % (0-4) 1.4 % (0-4) Carboxyhemoglobin Arterial Blood Methemoglobin 0.8 % (0-2) 0.8 % (0-2) Blood Gas Hemoglobin 11.6 G/DL 10.6 G/DL (12.0-16.0) (12.0-16.0) Oxygen Delivery Device VENTILATOR VENTILATOR Blood Gas Ventilator Setting 18/550/+10/1.0 PRVC/AC Blood Gas Inspired Oxygen 100 % 70 % Imaging Last Impressions Chest X-Ray 05/28/16 0600 Signed Impressions: Service Date/Time: Saturday, May 28, 2016 04:49 - CONCLUSION: Unchanged bibasilar densities. Wale Dalal MD Liver Ultrasound 05/09/16 0000 Signed Impressions: Service Date/Time: Monday, May 09, 2016 22:28 - CONCLUSION: 1. Enlarged, fatty liver. 2. Small stones or tumefactive sludge adherent to one of the gallbladder arcos. 3. Splenomegaly. 4. Pancreas is obscured by overlying bowel gas and patient's body habitus. Arthur Kennedy MD Abdomen X-Ray 05/01/16 0000 Signed Impressions: Service Date/Time: Sunday, May 01, 2016 17:28 - CONCLUSION: No evidence of obstruction. Feeding tube overlies the distal stomach, May have to be advanced slightly to reach the duodenum. Nick Jon MD Chest CT 03/28/16 0836 Signed Impressions: Service Date/Time: Monday, March 28, 2016 09:57 - CONCLUSION: Development areas of air bronchograms and consolidation more prominent in the right and left posterior basilar segments of the lower lobes. ET tube above the chanelle. Bernard Hartman MD CT Angiography 03/24/16 1121 Signed Impressions: Service Date/Time: Thursday, March 24, 2016 12:47 - CONCLUSION: 1. There is respiratory motion artifact but no PE is identified through most of the segmental level pulmonary arteries. 2. Mildly enlarged main pulmonary artery may indicate pulmonary arterial hypertension. 3. 11 mm left lower lobe noncalcified pulmonary nodule. Suggest correlation with any prior imaging studies that could confirm longer-term stability. If none are available consider short-term followup noncontrast chest CT in approximately 3 months. Ubaldo Rodas MD Objective Remarks GENERAL: 50-year-old morbidly obese male SKIN: Integrity intact. Warm and dry. HEAD: Atraumatic. Normocephalic. EYES: Pupils equal round and slightly reactive, 2 millimeters bilaterally. ENT: Tracheostomy removed, site draining clear material. CARDIOVASCULAR: Distant heart sounds, tachycardia. RRR. S1, S2. No S4. Without murmur RESPIRATORY: Diffuse crackles, no wheezes. Diminished breath sounds due to body habitus. GASTROINTESTINAL: Abdomen soft, obese, nontender. Severe central obesity, PEG tube without erythema or drainage MUSCULOSKELETAL: Extremities with trace to 1+ nonpitting bilateral lower extremity edema. NEUROLOGICAL: Anxious, opens eyes, tracks.Moves 4 to command, tracks with eyes, nods head. Procedures 04/30/16 - tracheostomy by Dr. Reyes 05/03/16 - EGD with PEG placement by Dr. 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 Ventilator bundle Bronchial dilator therapy every 6 hours With Atrovent nebs every 2 hours when necessary dyspnea Pulmonary Dr. Crane Re-intubation through mouth. CV: Monitor HR and BP keep MAP>65mmHg 2-D echo 03/26 EF 60%. No regional wall motion abnormality. Mild MR/TR. /FEN: Monitor renal function, I/O's, electrolytes replacement per protocol. GI: Constipation-resolved Moderate protein calorie malnutrition Nausea and vomiting Continue oral diet starting 05/29 Protonix 40mg daily Senna and Colace twice a day PEG tube placement- 05/03 Zofran 4 mg every 6 hours when necessary ID: Staph aureus pneumonia - resolved Pertinent culture 05/27 - sputum - MSSA 04/27 - pansensitive staph aureus 04/27 blood cultures 2 negative 04/25 - urine -no growth 04/19 - blood cultures 2 out of 4 - staph aureus 04/19 - sputum - staph aureus 04/08 - sputum - staph aureus 04/03 - sputum - staph aureus 03/30 - sputum- -staph aureus 03/27 - sputum - staph aureus 03/26 - blood - staph hominis On vancomycin 2 g IV every 12 are since 04/19 - 04/29 Azactam 04/27 through 04/29 Heme: Leukocytosis Monitor CBC/coags Monitor WBC labs every 3 days, unless clinically indicated. Repeat today Endo: Diabetes mellitus SSI for glycemic control with sliding scale insulin every 4 hours Levemir insulin 5 U hs, q6h SSI MSK Morbid obesity Weight loss encouraged DVT, GI prophylaxis -Bilateral lower extremity SCDs. IV Protonix 40 mg daily. Lovenox 40 mg sq BID LINES: -New SCV Left CVL placed 06/12 Overall impression: He has become critically ill with diffuse pulmonary edema and hypoxemic respiratory failure. Diffuse infiltrates looks like pulmonary edema; likely negative pressure. Having difficulty oxygenating, unable to wean vent. Critical Care 42 mins Jv Mathews MD Jun 13, 2016 13:21
[2016-06-13] MEDS ORDERED: SODIUM CHLOR 0.9% 1000 ML INJ 1,000 ML IV ONE ×2 (13:30)
[2016-06-13 13:31] LABS: BLOOD GAS BASE EXCESS 9.6 mmol/L (-2-2); BLOOD GAS CARBOXYHEMOGLOBIN 1.3 % (0-4); BLOOD GAS HCO3 34 mmol/L (22-26); BLOOD GAS METHEMOGLOBIN 0.7 % (0-2); BLOOD GAS O2 HGB SATURATION 98 % (90-100); BLOOD GAS OXYGEN CONTENT 17.3 Vol % (12.0-20.0); BLOOD GAS PCO2 51 mmHg (38-42); BLOOD GAS PO2 168 mmHg (61-120); BLOOD GAS TOTAL HGB 12.4 G/DL (12.0-16.0); CRITICAL VALUE YES; OXYGEN DEVICE VENTILATOR; TEMP CORR TO 98.6
[2016-06-13 13:33] LABS: VENT SETTINGS APRV
[2016-06-13 13:34] LABS: DRAW SITE ART LINE; FIO2 65 %; STAT NO
[2016-06-13] MEDS: LEVOFLOXACIN 750 MG PREMIX INJ 150 ML IV SCH (14:42)
--- NOTE | 2016-06-13 16:30 | HHI.PR ---
Subjective Remarks acute respiratory failure back on vent. support ALERT TODAY , FOLLOWS SIMPLE COMMANDS Objective GENERAL: SKIN: Warm and dry. HEAD: Atraumatic. Normocephalic. EYES: Pupils equal and round. No scleral icterus. No injection or drainage. ENT: No nasal bleeding or discharge. Mucous membranes pink and moist. NECK: Trachea midline. No JVD. CARDIOVASCULAR: Regular rate and rhythm. RESPIRATORY: No accessory muscle use. Clear to auscultation. Breath sounds equal bilaterally. GASTROINTESTINAL: Abdomen soft, non-tender, nondistended. Hepatic and splenic margins not palpable. MUSCULOSKELETAL: Extremities without clubbing, cyanosis, or edema. No obvious deformities. NEUROLOGICAL: Awake and alert. No obvious cranial nerve deficits. Motor grossly within normal limits. Five out of 5 muscle strength in the arms and legs. Normal speech. PSYCHIATRIC: Appropriate mood and affect; insight and judgment normal. Vital Signs Date Time Temp Pulse Resp B/P Pulse Ox O2 Delivery O2 Flow Rate FiO2 06/13/16 12:55 96 65 06/13/16 12:00 100.6 96 18 98/68 96 06/13/16 12:00 65 06/13/16 11:57 95 65 06/13/16 08:00 60 06/13/16 08:00 100.8 96 18 98/68 96 06/13/16 07:58 99 70 06/13/16 07:00 98 70 06/13/16 04:25 96 70 06/13/16 04:00 100.2 101 18 110/49 97 06/13/16 04:00 60 06/13/16 01:00 95 70 06/13/16 00:00 100.8 93 18 104/48 94 06/13/16 00:00 60 06/12/16 23:45 91 70 06/12/16 22:00 60 06/12/16 21:52 99 60 06/12/16 20:00 99.9 105 18 128/56 97 06/12/16 20:00 100 06/12/16 19:50 100 80 06/12/16 19:00 99 Mechanical Ventilator 100 I/O 06/12/16 06/12/16 06/12/16 06/13/16 06/13/16 06/13/16 07:00 15:00 23:00 07:00 15:00 23:00 Intake Total 320 ml 625 ml 186 ml 280 ml 1164 ml Output Total 650 ml 650 ml 300 ml 250 ml 400 ml Balance -330 ml -25 ml -114 ml 30 ml 764 ml Intake Oral 320 ml 625 ml IV Total 186 ml 280 ml 1164 ml Output Urine Total 650 ml 650 ml 300 ml 250 ml 200 ml Stool Total 0 ml Gastric Drainage Total 200 ml # Bowel Movements 0 0 1 0 Result Diagram: 06/12/16 0450 06/13/16 0330 Objective Remarks GENERAL: SKIN: Warm and dry.on vent support HEAD: Atraumatic. Normocephalic. EYES: Pupils equal and round. No scleral icterus. No injection or drainage. ENT: No nasal bleeding or discharge. Mucous membranes pink and moist. NECK: Trachea midline. No JVD. CARDIOVASCULAR: Regular rate and rhythm. RESPIRATORY: No accessory muscle use. Clear to auscultation. Breath sounds equal bilaterally. GASTROINTESTINAL: Abdomen soft, non-tender, nondistended. Hepatic and splenic margins not palpable. MUSCULOSKELETAL: Extremities without clubbing, cyanosis, or edema. No obvious deformities. NEUROLOGICAL: Awake and alert. No obvious cranial nerve deficits. Motor grossly within normal limits. Five out of 5 muscle strength in the arms and legs. Normal speech. PSYCHIATRIC: Appropriate mood and affect; insight and judgment normal. Assessment and Plan Assessment and Plan respiratory failure morbid obesity plan vent support pulm toilet prognosis guarded Orlando Perry MD Jun 13, 2016 16:30
[2016-06-13 16:38] LABS: BLOOD GAS BASE EXCESS 9.6 mmol/L (-2-2); BLOOD GAS CARBOXYHEMOGLOBIN 1.3 % (0-4); BLOOD GAS HCO3 34 mmol/L (22-26); BLOOD GAS METHEMOGLOBIN 0.6 % (0-2); BLOOD GAS O2 HGB SATURATION 98 % (90-100); BLOOD GAS OXYGEN CONTENT 15.9 Vol % (12.0-20.0); BLOOD GAS PCO2 52 mmHg (38-42); BLOOD GAS PO2 235 mmHg (61-120); BLOOD GAS TOTAL HGB 11.2 G/DL (12.0-16.0); TEMP CORR TO 98.6
[2016-06-13 16:40] LABS: CRITICAL VALUE YES; OXYGEN DEVICE VENTILATOR
[2016-06-13 16:41] LABS: DRAW SITE LT RADIAL; FIO2 65 %; NUMBER OF ARTERIAL PUNCTURES 1; STAT NO; ULNAR PULSE PRESENT
[2016-06-13] MEDS: POTASSIUM CHLORIDE INJ 10 MEQ in SODIUM CHLOR 0.9% 1000 ML INJ 1,000 ML IV SCH (16:52)
[2016-06-13] MEDS: INSULIN DETEMIR 100 UNITS/ML VIAL SQ SCH (20:45)
[2016-06-13] MEDS: LORazepam 2 MG/ML VIAL IVP PRN (21:22)
[2016-06-14] VITALS (16 sets, daily range): BP systolic 97–112; BP diastolic 61–71; PULSE 93–100; RESP 9–21; TEMP 99–100.9; O2SAT 97–100
[2016-06-14] MEDS: ARTIFICIAL TEARS OPTH SOLN 15 ML BTL EACH EYE SCH ×6 (02:00→20:26)
[2016-06-14] MEDS: ENOXAPARIN SODIUM 40 MG/0.4 ML SYRINGE SQ SCH ×2 (04:49→17:10)
[2016-06-14] MEDS: POTASSIUM CHLORIDE INJ 10 MEQ in SODIUM CHLOR 0.9% 1000 ML INJ 1,000 ML IV SCH ×3 (04:52→22:52)
[2016-06-14 05:04] LABS: BLOOD GAS BASE EXCESS 6.9 mmol/L (-2-2); BLOOD GAS CARBOXYHEMOGLOBIN 1.3 % (0-4); BLOOD GAS HCO3 31 mmol/L (22-26); BLOOD GAS METHEMOGLOBIN 0.7 % (0-2); BLOOD GAS O2 HGB SATURATION 98 % (90-100); BLOOD GAS OXYGEN CONTENT 13.5 Vol % (12.0-20.0); BLOOD GAS PCO2 47 mmHg (38-42); BLOOD GAS PO2 224 mmHg (61-120); BLOOD GAS TOTAL HGB 9.4 G/DL (12.0-16.0); TEMP CORR TO 98.6
[2016-06-14 05:05] LABS: CRITICAL VALUE NO; OXYGEN DEVICE VENTILATOR
[2016-06-14 05:07] LABS: DRAW SITE ART LINE; FIO2 55 %; STAT NO; VENT SETTINGS SEE COMMENTS
--- NOTE | 2016-06-14 05:12 | RADRPT ---
EXAM DATE/TIME: 06/14/2016 03:48 [facility] COMPARISON: CHEST SINGLE AP, June 12, 2016, 17:53. INDICATIONS : Shortness of breath MEDICAL HISTORY : Diabetes mellitus type II. SURGICAL HISTORY : Tracheostomy ENCOUNTER: Subsequent ACUITY: 4 - 6 days PAIN SCORE: Non-responsive. LOCATION: Bilateral chest FINDINGS: A single view of the chest demonstrates significant improvement with better aeration of the lungs. Mi nimal residual disease in the right lower lobe. Endotracheal tube, nasogastric tube and left subclavi an central line are in stable position. The cardiomediastinal contours are unremarkable. Osseous st ructures are intact. CONCLUSION: Significant improvement of the lungs with minimal residual disease the right lower lobe. Wale Dalal MD on June 14, 2016 at 5:09 Board Certified Radiologist. This report was verified electronically.
[2016-06-14 05:45] LABS: BICARBONATE 32.3 MEQ/L (21.0-32.0); POTASSIUM 3.8 MEQ/L (3.5-5.1)
--- NOTE | 2016-06-14 06:42 | HHI.CCPN ---
Subjective Remarks/Hospital Course Patient is a 50 years old obese male with past medical history significant for undiagnosed sleep apnea, super morbid obesity, type 2 diabetes was brought to the emergency department on 03/24/16 after feeling light headed and dizzy. On presentation here was found to be hypoxemic and ABG showed severe hypoxemia and hypercarbia. For a recent driving physical he was diagnosed with low oxygen saturations. Patient's oxygen saturation the ED was in the low 80s, which was confirmed on ABG with a oxygen saturation of 78% and PO2 of 46. CTA negative for PE. Patient was initiated on BiPAP therapy with consult to pulmonary Dr. Crane. His oxygenation improved but he continued to be hypercapnic. Today a.m. on nasal cannula his pH was 7.26 and PCO2 was increased at 99, patient was somnolent was placed back on BiPAP and repeat ABG at noon showed pH 7.26 PCO2 98 and pO2 70. This was on 16 BiPAP with FiO2 50%. Critical care was consulted. On my evaluation patient is somnolent but wakes up easily. I reduced the PEEP on BiPAP from 12-7 to facilitate better ventilation. A repeat ANG showed only minimal improvement, so decision made to intubate patient. Glidescope with #4 blade was used. Only propofol was used for induction. Initially I had a Grade 1-2 view, but I was unable to pass tube through the vocal cord to trachea in two attempts. Tube slipped out of Laryngeal opening both times. Dr Garrett intubated patient after NM paralysis with succinylcholine. Post intubation ABG showed improvement in hypercapnia and oxygenation. 03/27/16: Patient remains intubated heavily sedated with propofol and fentanyl. Remained severely hypoxemic on 100% FiO2, PEEP12, chest x-ray shows bibasilar infiltrates. Flagyl added. We'll give 1 dose of vancomycin-Adjust antibiotics according to cultures. Patient super morbid obesity may prevent Prone therapy 03/28: Remains hypoxic but ABG shows marginal improvement in oxygenation. WBC increasing 20.1 today. Start vancomycin scheduled. 03/29: Oxygenation is slightly improved. FiO2 reduced to 50% today. Chest x- ray remains unchanged. On sedation hold patient does wake up and follow commands. WBC count remains at 20 03/30 No acute events overnight. Sedated with Diprivan and Fentanyl. Had T: 100.1 at 4 am. WBC trending down 15.9 today from 20. 03/31 Patient remains sedated with Diprivan, Fentanyl and intubated. Tmax 100.1. Patient required increase O2 overnight now on ACV with PEEP: 12 and FIO2 70%. 04/01: Tmax 99.7. No bowel movement since admission. Patient has bowel sounds. Arousable on the ventilator. We'll attempt prone the patient paralyzed to increase oxygenation status. 04/02: MAXIMUM TEMPERATURE 100.9. Currently 97.7. 5 10 cc stools overnight. Placed on Roto prone yesterday. Saturations currently 94% on Flolan. Diuresed overnight. Creatinine still within normal limits. 04/03: Tmax 101. Currently 99.1. Positive BM. Did not tolerate not being unprone this AM. Saturations much improved prone. Tolerating tube feeding. 04/04: Tmax 100.8. Currently 98.8. +2 L past 24 hours. Attempt to on prone today. Positive BM. C. difficile negative. Remains paralyzed. 04/05: Remains sedated, orally intubated on neuromuscular blockade on mechanical ventilation. Remains on Rota prone bed. On insulin drip. 04/06: Remains sedated, orally intubated on neuromuscular blockade, on mechanical ventilation. Remains on Rota prone bed. Insulin drip continues. 04/07 Patient remains on Rotoprone bed sedated with Diprivan, Versed, Fentanyl in addition patient is on Nimbex. Afebrile. On Insulin drip 5u/hr. 04/08 Patient remains sedated and intubated and on Nimbex. Off insulin drip. On PRVC/AC with RR 15, TV 550, IT: 1.65, PEEP: 15 and FIO2 100%. T: 100.2 at 4 am. 04/09 Patient is sedated, intubated and remains on neuromuscular blockade. Vent setting unchanged. afebrile. 04/10 Patient remains sedated and intubated and on Nimbex. On PRVC/AC, RR 15, TV 500, PEEP: 15, FIO2 90%, IT:1.65, on Flolan drip. Remains on Rotoprone bed. 04/11 minimal improvement in oxygenation, FiO2 now at 75 - continue to improve oxygenation, worsening CXR 04/13/10 continue to improve oxygenation DC'd prone position last night 04/14- improving oxygenation, Nimbex discontinued as well as prone position 04/16 Patient is sedated with Versed and Fentanyl and intubated. Off rotoprone bed. On PRVC/AC RR 15, TV 550, IT 1.65, PEEP:15, FIO2 50%. 04/17 Patient remains sedated with Versed and Fentanyl. Afebrile, tolerating tube feeds 04/18 No acute events overnight Sedated and intubated. Afebrile. On PRVC/AC RR 15 , TV 550, IT 1.65, PEEP:15, FIO2 60% 04/19: Spiking fever up to 101, pancultured and 1 dose of vancomycin given by ID. On weaning doses of Flolan. FiO2 down to 50% I have reduced PEEP to 14. Remains critically ill 04/20: No fever. Sputum cx with Staph -S pending. Fio2 50% PEEP remains at 14. TV increased to 650 to improve lung recruitment. On weaning dose of Flolan-DC after current bag 04/21:Afebrile. Hyponatremia resolving, the patient will be placed on free water flushes. 04/22:The patient had an episode of acute desaturation requiring FiO2 increased to 90%. Stat chest x-ray stat ABG aggressive pulmonary toileting and suctioning , resolution of symptoms FiO2 now 55%. ABGs within normal limits. 04/23: Tmax 99.5. Currently afebrile. O2 sat 50%. PEEP down to 13. One small bowel movement overnight. 04/24: Currently afebrile. O2 sat 45%. PEEP to 12. One BM. Tolerating tube feeds. 04/25: Afebrile. PEEP down to 11. Positive BM. Tolerating tube feeds. Awake on the ventilator with eyes open. 04/26: Afebrile. PEEP down to 10. Time to feeding. Awake and alert eyes open. 04/27: Suspected fever overnight. One bowel movement documented. Will decreased PEEP to 9. Awake and alert and follows commands. 04/28: Tmax 99.3. Currently afebrile. FiO2 increased to 70%. PEEP to 10. Awake and does follow commands. Positive BM 4 yesterday. 04/29: FiO2 down to 55%. Peak systolic 10. Awake and does follow commands. Positive BM 1 yesterday. Tolerating tube feeding. 04/30: No acute issues overnight . The patient continues to be sedated with plans for tracheostomy in the OR today. The patient follows commands when on sedation vacation. 05/01: Postop day 1 post tracheostomy tube placement, no issues overnight. Plan for CPAP trials today. 05/02: Afebrile. The patient continues on CPAP trial 15/5 , FiO2 .45%. The patient alert and responsive this a.m., continues on Precedex and fentanyl infusion. By mouth narcotics, and fentanyl patch instituted to transition all fentanyl infusion. PEG tube placement pending. 05/03: The patient's fentanyl infusion was discontinued last evening. Multimodal analgesia initiated. Patient continues on Precedex infusion, GCS 14 T. Plans today for PEG placement later on this afternoon. No acute issues overnight. 05/04 Tmax 101.0. The patient's PICC line was removed, peripheral IVs initiated. Blood, urine and sputum cultures obtained. Methylprednisolone continues to be weaned currently at 20 mg daily. Plan for weaning of Precedex infusion off today. Seroquel 25 mg twice a day added to medication regimen. The patient continues on CPAP trials. 05/05: Tmax 99.1. Overnight the patient was maintained on CPAP trials of 15/5/40% , the patient's respiratory rate continues to be low 30s, tolerated well. The sake early this a.m. the patient was noticed to have a episode of nausea and vomiting Zofran instituted. The patient continues on scheduled Reglan TID. Blood , sputum and urine cultures were obtained yesterday secondary to elevated temperature awaiting results. 05/06: The patient remains on T piece greater than 48 hours. The patient is alert oriented and cooperative. Trach site without erythema or drainage. Patient was noticed over the last 12 hours to have multiple bowel movements or in the night. Will D/C MiraLAX, lactulose and Reglan will be discontinued. Plan for possible transfer to LTAC facility. 05/07 no acute issues overnight tolerating TPs 05/27 shortly after midnight rapid response team was called due to patient's respiratory distress and hypercarbic respiratory failure with hypoxemia and cyanosis 05/27: Tracheostomy was exchanged this morning to a #6 Shiley fenestrated cuffed. Currently on PRVC with PEEP of 10. Saturations are much improved. Awake and alert and following commands. Requesting diet. 05/28: Awake and alert. On mechanical ventilation via tracheostomy. Following commands. 05/29: Awake and alert. On mechanical ventilation via tracheostomy. Tolerating PO diet. Following commands. 05/30: Awake and alert. On mechanical ventilation via tracheostomy. Tolerating by mouth diet. Following commands. 05/31: Remains on mechanical ventilation via tracheostomy. Tolerating C Pap/ pressure support. Following commands. Tolerating by mouth diet. 06/01: Remains on mechanical ventilation via tracheostomy. Awake and alert. Tolerated C Pap and pressure support however gets extremely tachypneic on dropping pressure-support to +5. Tolerating by mouth diet 06/02: Tmax 99.5. Currently 99. Currently on T piece trial. Condom catheter placed. Subjective 06/03: Currently T piece trial. Saturations around 98 %. Appears comfortable. He is in no acute distress. No issues overnight 06/12: Hypoxemic respiratory failure and difficulty bag ventilating. Rushed to ICU with acceptable sats and immediately intubated through the mouth. Trach tube removed. Good ventilation immediately restored. CXR with diffuse pulmonary edema - question negative pressure. 06/13: Persistent diffuse infiltrates, MSSA sputum, start abx. Hydrate for oliguria. Convert to APRV for recruitment. 06/14: CXR has cleared and well expanded on APRV. Will work to convert to conventional and revise trach. Objective Vital Signs Date Time Temp Pulse Resp B/P Pulse Ox O2 Delivery O2 Flow Rate FiO2 06/14/16 05:11 98 50 06/14/16 04:00 99.0 93 21 110/71 06/13/16 20:00 Mechanical Ventilator 06/12/16 08:10 6.00 Intake and Output 06/13/16 06/13/16 06/14/16 08:00 16:00 00:00 Intake Total 280 ml 1164 ml 810 ml Output Total 250 ml 400 ml 400 ml Balance 30 ml 764 ml 410 ml Result Diagram: 06/12/16 0450 06/14/16 0500 Other Results Laboratory Tests Test 06/13/16 06/13/16 06/14/16 13:16 16:33 04:53 Blood Gas Puncture Site ART LINE LT RADIAL ART LINE Blood Gas Patient Temperature 98.6 98.6 98.6 Blood Gas HCO3 34 mmol/L 34 mmol/L 31 mmol/L (22-26) (22-26) (22-26) Blood Gas Base Excess 9.6 mmol/L 9.6 mmol/L 6.9 mmol/L (-2-2) (-2-2) (-2-2) Blood Gas Oxygen Saturation 98 % (90-100) 98 % (90-100) 98 % (90-100) Arterial Blood pH 7.44 7.43 7.44 (7.380-7.420) (7.380-7.420) (7.380-7.420) Arterial Blood Partial 51 mmHg (38-42) 52 mmHg (38-42) 47 mmHg (38-42) Pressure CO2 Arterial Blood Partial 168 mmHg 235 mmHg 224 mmHg Pressure O2 (61-120) (61-120) (61-120) Arterial Blood Oxygen Content 17.3 Vol % 15.9 Vol % 13.5 Vol % (12.0-20.0) (12.0-20.0) (12.0-20.0) Arterial Blood 1.3 % (0-4) 1.3 % (0-4) 1.3 % (0-4) Carboxyhemoglobin Arterial Blood Methemoglobin 0.7 % (0-2) 0.6 % (0-2) 0.7 % (0-2) Blood Gas Hemoglobin 12.4 G/DL 11.2 G/DL 9.4 G/DL (12.0-16.0) (12.0-16.0) (12.0-16.0) Oxygen Delivery Device VENTILATOR VENTILATOR VENTILATOR Blood Gas Ventilator Setting APRV SEE COMMENTS Blood Gas Inspired Oxygen 65 % 65 % 55 % Imaging Last Impressions Chest X-Ray 05/28/16 0600 Signed Impressions: Service Date/Time: Saturday, May 28, 2016 04:49 - CONCLUSION: Unchanged bibasilar densities. Wale Dalal MD Liver Ultrasound 05/09/16 0000 Signed Impressions: Service Date/Time: Monday, May 09, 2016 22:28 - CONCLUSION: 1. Enlarged, fatty liver. 2. Small stones or tumefactive sludge adherent to one of the gallbladder arcos. 3. Splenomegaly. 4. Pancreas is obscured by overlying bowel gas and patient's body habitus. Arthur Kennedy MD Abdomen X-Ray 05/01/16 0000 Signed Impressions: Service Date/Time: Sunday, May 01, 2016 17:28 - CONCLUSION: No evidence of obstruction. Feeding tube overlies the distal stomach, May have to be advanced slightly to reach the duodenum. Nick Jon MD Chest CT 03/28/16 0836 Signed Impressions: Service Date/Time: Monday, March 28, 2016 09:57 - CONCLUSION: Development areas of air bronchograms and consolidation more prominent in the right and left posterior basilar segments of the lower lobes. ET tube above the chanelle. Bernard Hartman MD CT Angiography 03/24/16 1121 Signed Impressions: Service Date/Time: Thursday, March 24, 2016 12:47 - CONCLUSION: 1. There is respiratory motion artifact but no PE is identified through most of the segmental level pulmonary arteries. 2. Mildly enlarged main pulmonary artery may indicate pulmonary arterial hypertension. 3. 11 mm left lower lobe noncalcified pulmonary nodule. Suggest correlation with any prior imaging studies that could confirm longer-term stability. If none are available consider short-term followup noncontrast chest CT in approximately 3 months. Ubaldo Rodas MD Objective Remarks GENERAL: 50-year-old morbidly obese male SKIN: Integrity intact. Warm and dry. HEAD: Atraumatic. Normocephalic. EYES: MARITZA, 2 millimeters bilaterally. ENT: Tracheostomy removed, site draining clear material. CARDIOVASCULAR: Distant heart sounds, tachycardia. RRR. S1, S2. No S4. Without murmur RESPIRATORY: No crackles, no wheezes. Diminished breath sounds due to body habitus. GASTROINTESTINAL: Abdomen soft, obese, nontender. Severe central obesity, PEG tube without erythema or drainage MUSCULOSKELETAL: Extremities with trace + nonpitting bilateral lower extremity edema. NEUROLOGICAL: Anxious, opens eyes, tracks.Moves 4 to command, tracks with eyes, nods head. Procedures 04/30/16 - tracheostomy by Dr. Reyes 05/03/16 - EGD with PEG placement by Dr. 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 Ventilator bundle Bronchial dilator therapy every 6 hours With Atrovent nebs every 2 hours when necessary dyspnea Pulmonary Dr. Crane Re-intubation through mouth. Revise trach. CV: Monitor HR and BP keep MAP>65mmHg 2-D echo 03/26 EF 60%. No regional wall motion abnormality. Mild MR/TR. /FEN: Monitor renal function, I/O's, electrolytes replacement per protocol. GI: Constipation-resolved Moderate protein calorie malnutrition Nausea and vomiting Continue oral diet starting 05/29 Protonix 40mg daily Senna and Colace twice a day PEG tube placement- 05/03 Zofran 4 mg every 6 hours when necessary ID: Staph aureus pneumonia - resolved Pertinent culture 05/27 - sputum - MSSA 04/27 - pansensitive staph aureus 04/27 blood cultures 2 negative 04/25 - urine -no growth 04/19 - blood cultures 2 out of 4 - staph aureus 04/19 - sputum - staph aureus 04/08 - sputum - staph aureus 04/03 - sputum - staph aureus 03/30 - sputum- -staph aureus 03/27 - sputum - staph aureus 03/26 - blood - staph hominis On vancomycin 2 g IV every 12 are since 04/19 - 04/29 Azactam 04/27 through 04/29 Heme: Leukocytosis Monitor CBC/coags Monitor WBC labs every 3 days, unless clinically indicated. Repeat today Endo: Diabetes mellitus SSI for glycemic control with sliding scale insulin every 4 hours Levemir insulin 5 U hs, q6h SSI MSK Morbid obesity Weight loss encouraged DVT, GI prophylaxis -Bilateral lower extremity SCDs. IV Protonix 40 mg daily. Lovenox 40 mg sq BID LINES: -New SCV Left CVL placed 06/12 Overall impression: He became critically ill with diffuse pulmonary edema and hypoxemic respiratory failure. Diffuse infiltrates looks like pulmonary edema; likely negative pressure. Now improved gas exchange on APRV. It will be difficult to extubate him, will need to revise trach. Critical Care 39 mins Jv Mathews MD Jun 14, 2016 06:42
[2016-06-14] MEDS: INSULIN ASPART SUPPLEMENTAL SCALE SQ SCH ×4 (07:00→20:43)
[2016-06-14] MEDS: POTASSIUM CHLORIDE 10 MEQ CONTROLLED RELEASE TAB PO SCH (09:00)
[2016-06-14] MEDS: BENEPROTEIN POWDER 1 PACK G-TUBE SCH ×3 (09:00→17:10)
[2016-06-14] MEDS: DOCUSATE SODIUM 100 MG/10 ML UDC PO SCH ×2 (09:24→20:25)
[2016-06-14] MEDS: PANTOPRAZOLE SOD 40 MG DELAYED RELEASE TAB PO SCH (09:24)
[2016-06-14] MEDS: LACTOBACILLUS ACIDOPHILUS TAB PO SCH ×3 (09:24→17:10)
[2016-06-14] MEDS: QUEtiapine FUMARATE 25 MG TAB PO SCH ×2 (09:24→20:25)
[2016-06-14] MEDS: POLYETHYLENE GLYCOL 17 GM PKG PO SCH ×2 (09:24→20:25)
[2016-06-14] MEDS: ACETAMINOPHEN/HYDROcodone 325 MG/5 MG TAB PO SCH ×2 (09:24→20:25)
[2016-06-14] MEDS: SENNOSIDES SYRUP 8.8 MG/5 ML CUP PO/TUBE SCH ×2 (09:24→20:25)
[2016-06-14] MEDS: BACLOFEN 10 MG TAB PO SCH ×2 (09:24→20:25)
[2016-06-14] MEDS: SODIUM CHLORIDE 0.9% FLUSH 5 ML FLUSH IVF SCH (09:26)
[2016-06-14] MEDS: CHLORHEXIDINE 0.12% (ORAL KIT) 15 ML CUP MT SCH ×2 (09:26→20:00)
[2016-06-14] MEDS: BETAMETHASONE/CLOTRIMAZOLE CREAM 15 GM TOPICAL SCH ×2 (09:27→20:25)
[2016-06-14] MEDS: NYSTATIN 100,000 U/GM PWD 15 GM BTL TOPICAL SCH ×2 (09:27→20:26)
[2016-06-14] MEDS: SILVER SULFADIAZINE 1% CR 400 GM JAR TOPICAL SCH (09:28)
[2016-06-14] MEDS: PREGABALIN 25 MG CAP PO SCH (11:21)
[2016-06-14] MEDS: LEVOFLOXACIN 750 MG PREMIX INJ 150 ML IV SCH (13:11)
[2016-06-14] MEDS: ACETAMINOPHEN 650 MG/20.3 ML UDC PO PRN (17:11)
[2016-06-14] MEDS: RESP: ALBUTEROL 2.5 MG/IPRATROPIUM 0.5 MG NEB (PRN) NEB (20:00)
[2016-06-14] MEDS: INSULIN DETEMIR 100 UNITS/ML VIAL SQ SCH (20:43)
[2016-06-15] VITALS (12 sets, daily range): BP systolic 94–110; BP diastolic 55–66; PULSE 80–98; RESP 9–25; TEMP 99.1–101.7; O2SAT 95–100
[2016-06-15] MEDS: ARTIFICIAL TEARS OPTH SOLN 15 ML BTL EACH EYE SCH ×6 (02:00→21:45)
[2016-06-15] MEDS: POTASSIUM CHLORIDE INJ 10 MEQ in SODIUM CHLOR 0.9% 1000 ML INJ 1,000 ML IV SCH ×3 (05:35→18:40)
[2016-06-15] MEDS: ENOXAPARIN SODIUM 40 MG/0.4 ML SYRINGE SQ SCH ×2 (06:00→17:48)
[2016-06-15 06:13] LABS: BICARBONATE 30.9 MEQ/L (21.0-32.0); POTASSIUM 3.7 MEQ/L (3.5-5.1)
[2016-06-15] MEDS: INSULIN ASPART SUPPLEMENTAL SCALE SQ SCH ×4 (06:28→21:00)
[2016-06-15] MEDS ORDERED: SODIUM CHLOR 0.9% 1000 ML INJ 1,000 ML IV ONE (07:30)
[2016-06-15] MEDS: DOCUSATE SODIUM 100 MG/10 ML UDC PO SCH ×2 (08:48→21:43)
[2016-06-15] MEDS: SENNOSIDES SYRUP 8.8 MG/5 ML CUP PO/TUBE SCH ×2 (08:48→21:00)
[2016-06-15] MEDS: PREGABALIN 25 MG CAP PO SCH (08:48)
[2016-06-15] MEDS: LACTOBACILLUS ACIDOPHILUS TAB PO SCH ×3 (08:48→17:48)
[2016-06-15] MEDS: POLYETHYLENE GLYCOL 17 GM PKG PO SCH ×2 (08:48→21:00)
[2016-06-15] MEDS: BACLOFEN 10 MG TAB PO SCH ×2 (08:49→21:44)
[2016-06-15] MEDS: QUEtiapine FUMARATE 25 MG TAB PO SCH ×2 (08:49→21:44)
[2016-06-15] MEDS: PANTOPRAZOLE SOD 40 MG DELAYED RELEASE TAB PO SCH (08:49)
[2016-06-15] MEDS: ACETAMINOPHEN/HYDROcodone 325 MG/5 MG TAB PO SCH ×2 (08:49→21:44)
[2016-06-15] MEDS: POTASSIUM CHLORIDE 10 MEQ CONTROLLED RELEASE TAB PO SCH (08:49)
[2016-06-15] MEDS: SILVER SULFADIAZINE 1% CR 400 GM JAR TOPICAL SCH (08:50)
[2016-06-15] MEDS: BETAMETHASONE/CLOTRIMAZOLE CREAM 15 GM TOPICAL SCH ×2 (08:50→21:00)
[2016-06-15] MEDS: NYSTATIN 100,000 U/GM PWD 15 GM BTL TOPICAL SCH ×2 (08:50→21:00)
[2016-06-15] MEDS: CHLORHEXIDINE 0.12% (ORAL KIT) 15 ML CUP MT SCH ×2 (08:51→20:00)
[2016-06-15] MEDS: BENEPROTEIN POWDER 1 PACK G-TUBE SCH ×3 (08:51→17:48)
[2016-06-15] MEDS: SODIUM CHLORIDE 0.9% FLUSH 5 ML FLUSH IVF SCH (08:51)
--- NOTE | 2016-06-15 11:07 | HHI.CCPN ---
Subjective Remarks/Hospital Course Patient is a 50 years old obese male with past medical history significant for undiagnosed sleep apnea, super morbid obesity, type 2 diabetes was brought to the emergency department on 03/24/16 after feeling light headed and dizzy. On presentation here was found to be hypoxemic and ABG showed severe hypoxemia and hypercarbia. For a recent driving physical he was diagnosed with low oxygen saturations. Patient's oxygen saturation the ED was in the low 80s, which was confirmed on ABG with a oxygen saturation of 78% and PO2 of 46. CTA negative for PE. Patient was initiated on BiPAP therapy with consult to pulmonary Dr. Crane. His oxygenation improved but he continued to be hypercapnic. Today a.m. on nasal cannula his pH was 7.26 and PCO2 was increased at 99, patient was somnolent was placed back on BiPAP and repeat ABG at noon showed pH 7.26 PCO2 98 and pO2 70. This was on 16 BiPAP with FiO2 50%. Critical care was consulted. On my evaluation patient is somnolent but wakes up easily. I reduced the PEEP on BiPAP from 12-7 to facilitate better ventilation. A repeat ANG showed only minimal improvement, so decision made to intubate patient. Glidescope with #4 blade was used. Only propofol was used for induction. Initially I had a Grade 1-2 view, but I was unable to pass tube through the vocal cord to trachea in two attempts. Tube slipped out of Laryngeal opening both times. Dr Garrett intubated patient after NM paralysis with succinylcholine. Post intubation ABG showed improvement in hypercapnia and oxygenation. 03/27/16: Patient remains intubated heavily sedated with propofol and fentanyl. Remained severely hypoxemic on 100% FiO2, PEEP12, chest x-ray shows bibasilar infiltrates. Flagyl added. We'll give 1 dose of vancomycin-Adjust antibiotics according to cultures. Patient super morbid obesity may prevent Prone therapy 03/28: Remains hypoxic but ABG shows marginal improvement in oxygenation. WBC increasing 20.1 today. Start vancomycin scheduled. 03/29: Oxygenation is slightly improved. FiO2 reduced to 50% today. Chest x- ray remains unchanged. On sedation hold patient does wake up and follow commands. WBC count remains at 20 03/30 No acute events overnight. Sedated with Diprivan and Fentanyl. Had T: 100.1 at 4 am. WBC trending down 15.9 today from 20. 03/31 Patient remains sedated with Diprivan, Fentanyl and intubated. Tmax 100.1. Patient required increase O2 overnight now on ACV with PEEP: 12 and FIO2 70%. 04/01: Tmax 99.7. No bowel movement since admission. Patient has bowel sounds. Arousable on the ventilator. We'll attempt prone the patient paralyzed to increase oxygenation status. 04/02: MAXIMUM TEMPERATURE 100.9. Currently 97.7. 5 10 cc stools overnight. Placed on Roto prone yesterday. Saturations currently 94% on Flolan. Diuresed overnight. Creatinine still within normal limits. 04/03: Tmax 101. Currently 99.1. Positive BM. Did not tolerate not being unprone this AM. Saturations much improved prone. Tolerating tube feeding. 04/04: Tmax 100.8. Currently 98.8. +2 L past 24 hours. Attempt to on prone today. Positive BM. C. difficile negative. Remains paralyzed. 04/05: Remains sedated, orally intubated on neuromuscular blockade on mechanical ventilation. Remains on Rota prone bed. On insulin drip. 04/06: Remains sedated, orally intubated on neuromuscular blockade, on mechanical ventilation. Remains on Rota prone bed. Insulin drip continues. 04/07 Patient remains on Rotoprone bed sedated with Diprivan, Versed, Fentanyl in addition patient is on Nimbex. Afebrile. On Insulin drip 5u/hr. 04/08 Patient remains sedated and intubated and on Nimbex. Off insulin drip. On PRVC/AC with RR 15, TV 550, IT: 1.65, PEEP: 15 and FIO2 100%. T: 100.2 at 4 am. 04/09 Patient is sedated, intubated and remains on neuromuscular blockade. Vent setting unchanged. afebrile. 04/10 Patient remains sedated and intubated and on Nimbex. On PRVC/AC, RR 15, TV 500, PEEP: 15, FIO2 90%, IT:1.65, on Flolan drip. Remains on Rotoprone bed. 04/11 minimal improvement in oxygenation, FiO2 now at 75 - continue to improve oxygenation, worsening CXR 04/13/10 continue to improve oxygenation DC'd prone position last night 04/14- improving oxygenation, Nimbex discontinued as well as prone position 04/16 Patient is sedated with Versed and Fentanyl and intubated. Off rotoprone bed. On PRVC/AC RR 15, TV 550, IT 1.65, PEEP:15, FIO2 50%. 04/17 Patient remains sedated with Versed and Fentanyl. Afebrile, tolerating tube feeds 04/18 No acute events overnight Sedated and intubated. Afebrile. On PRVC/AC RR 15 , TV 550, IT 1.65, PEEP:15, FIO2 60% 04/19: Spiking fever up to 101, pancultured and 1 dose of vancomycin given by ID. On weaning doses of Flolan. FiO2 down to 50% I have reduced PEEP to 14. Remains critically ill 04/20: No fever. Sputum cx with Staph -S pending. Fio2 50% PEEP remains at 14. TV increased to 650 to improve lung recruitment. On weaning dose of Flolan-DC after current bag 04/21:Afebrile. Hyponatremia resolving, the patient will be placed on free water flushes. 04/22:The patient had an episode of acute desaturation requiring FiO2 increased to 90%. Stat chest x-ray stat ABG aggressive pulmonary toileting and suctioning , resolution of symptoms FiO2 now 55%. ABGs within normal limits. 04/23: Tmax 99.5. Currently afebrile. O2 sat 50%. PEEP down to 13. One small bowel movement overnight. 04/24: Currently afebrile. O2 sat 45%. PEEP to 12. One BM. Tolerating tube feeds. 04/25: Afebrile. PEEP down to 11. Positive BM. Tolerating tube feeds. Awake on the ventilator with eyes open. 04/26: Afebrile. PEEP down to 10. Time to feeding. Awake and alert eyes open. 04/27: Suspected fever overnight. One bowel movement documented. Will decreased PEEP to 9. Awake and alert and follows commands. 04/28: Tmax 99.3. Currently afebrile. FiO2 increased to 70%. PEEP to 10. Awake and does follow commands. Positive BM 4 yesterday. 04/29: FiO2 down to 55%. Peak systolic 10. Awake and does follow commands. Positive BM 1 yesterday. Tolerating tube feeding. 04/30: No acute issues overnight . The patient continues to be sedated with plans for tracheostomy in the OR today. The patient follows commands when on sedation vacation. 05/01: Postop day 1 post tracheostomy tube placement, no issues overnight. Plan for CPAP trials today. 05/02: Afebrile. The patient continues on CPAP trial 15/5 , FiO2 .45%. The patient alert and responsive this a.m., continues on Precedex and fentanyl infusion. By mouth narcotics, and fentanyl patch instituted to transition all fentanyl infusion. PEG tube placement pending. 05/03: The patient's fentanyl infusion was discontinued last evening. Multimodal analgesia initiated. Patient continues on Precedex infusion, GCS 14 T. Plans today for PEG placement later on this afternoon. No acute issues overnight. 05/04 Tmax 101.0. The patient's PICC line was removed, peripheral IVs initiated. Blood, urine and sputum cultures obtained. Methylprednisolone continues to be weaned currently at 20 mg daily. Plan for weaning of Precedex infusion off today. Seroquel 25 mg twice a day added to medication regimen. The patient continues on CPAP trials. 05/05: Tmax 99.1. Overnight the patient was maintained on CPAP trials of 15/5/40% , the patient's respiratory rate continues to be low 30s, tolerated well. The sake early this a.m. the patient was noticed to have a episode of nausea and vomiting Zofran instituted. The patient continues on scheduled Reglan TID. Blood , sputum and urine cultures were obtained yesterday secondary to elevated temperature awaiting results. 05/06: The patient remains on T piece greater than 48 hours. The patient is alert oriented and cooperative. Trach site without erythema or drainage. Patient was noticed over the last 12 hours to have multiple bowel movements or in the night. Will D/C MiraLAX, lactulose and Reglan will be discontinued. Plan for possible transfer to LTAC facility. 05/07 no acute issues overnight tolerating TPs 05/27 shortly after midnight rapid response team was called due to patient's respiratory distress and hypercarbic respiratory failure with hypoxemia and cyanosis 05/27: Tracheostomy was exchanged this morning to a #6 Shiley fenestrated cuffed. Currently on PRVC with PEEP of 10. Saturations are much improved. Awake and alert and following commands. Requesting diet. 05/28: Awake and alert. On mechanical ventilation via tracheostomy. Following commands. 05/29: Awake and alert. On mechanical ventilation via tracheostomy. Tolerating PO diet. Following commands. 05/30: Awake and alert. On mechanical ventilation via tracheostomy. Tolerating by mouth diet. Following commands. 05/31: Remains on mechanical ventilation via tracheostomy. Tolerating C Pap/ pressure support. Following commands. Tolerating by mouth diet. 06/01: Remains on mechanical ventilation via tracheostomy. Awake and alert. Tolerated C Pap and pressure support however gets extremely tachypneic on dropping pressure-support to +5. Tolerating by mouth diet 06/02: Tmax 99.5. Currently 99. Currently on T piece trial. Condom catheter placed. Subjective 06/03: Currently T piece trial. Saturations around 98 %. Appears comfortable. He is in no acute distress. No issues overnight 06/12: Hypoxemic respiratory failure and difficulty bag ventilating. Rushed to ICU with acceptable sats and immediately intubated through the mouth. Trach tube removed. Good ventilation immediately restored. CXR with diffuse pulmonary edema - question negative pressure. 06/13: Persistent diffuse infiltrates, MSSA sputum, start abx. Hydrate for oliguria. Convert to APRV for recruitment. 06/14: CXR has cleared and well expanded on APRV. Will work to convert to conventional and revise trach. 06/15: CXR clear. MSSA colonized but fever persists. Treat. Need to revise trach. Objective Vital Signs Date Time Temp Pulse Resp B/P Pulse Ox O2 Delivery O2 Flow Rate FiO2 06/15/16 08:00 30 06/15/16 08:00 101.7 93 9 106/66 100 06/15/16 07:00 Mechanical Ventilator 06/12/16 08:10 6.00 Intake and Output 06/14/16 06/14/16 06/15/16 08:00 16:00 00:00 Intake Total 650 ml 991 ml 1471 ml Output Total 300 ml 350 ml 400 ml Balance 350 ml 641 ml 1071 ml Result Diagram: 06/12/16 0450 06/15/16 0520 Other Results Microbiology Date/Time Procedure Status Source Growth 06/12/16 16:00 Urine Culture - Final Complete Urine Catheterized Urine NO GROWTH IN 48 HOURS. Imaging Last Impressions Chest X-Ray 05/28/16 0600 Signed Impressions: Service Date/Time: Saturday, May 28, 2016 04:49 - CONCLUSION: Unchanged bibasilar densities. Wale Dalal MD Liver Ultrasound 05/09/16 0000 Signed Impressions: Service Date/Time: Monday, May 09, 2016 22:28 - CONCLUSION: 1. Enlarged, fatty liver. 2. Small stones or tumefactive sludge adherent to one of the gallbladder arcos. 3. Splenomegaly. 4. Pancreas is obscured by overlying bowel gas and patient's body habitus. Arthur Kennedy MD Abdomen X-Ray 05/01/16 0000 Signed Impressions: Service Date/Time: Sunday, May 01, 2016 17:28 - CONCLUSION: No evidence of obstruction. Feeding tube overlies the distal stomach, May have to be advanced slightly to reach the duodenum. Nick Jon MD Chest CT 03/28/16 0836 Signed Impressions: Service Date/Time: Monday, March 28, 2016 09:57 - CONCLUSION: Development areas of air bronchograms and consolidation more prominent in the right and left posterior basilar segments of the lower lobes. ET tube above the chanelle. Bernard Hartman MD CT Angiography 03/24/16 1121 Signed Impressions: Service Date/Time: Thursday, March 24, 2016 12:47 - CONCLUSION: 1. There is respiratory motion artifact but no PE is identified through most of the segmental level pulmonary arteries. 2. Mildly enlarged main pulmonary artery may indicate pulmonary arterial hypertension. 3. 11 mm left lower lobe noncalcified pulmonary nodule. Suggest correlation with any prior imaging studies that could confirm longer-term stability. If none are available consider short-term followup noncontrast chest CT in approximately 3 months. Ubaldo Rodas MD Objective Remarks GENERAL: 50-year-old morbidly obese male SKIN: Integrity intact. Warm and dry. HEAD: Atraumatic. Normocephalic. EYES: MARITZA, 2 millimeters bilaterally. ENT: Tracheostomy removed, site draining clear material. CARDIOVASCULAR: Distant heart sounds, tachycardia. RRR. S1, S2. No S4. Without murmur RESPIRATORY: No crackles, no wheezes. Diminished breath sounds due to body habitus. GASTROINTESTINAL: Abdomen soft, obese, nontender. Severe central obesity, PEG tube without erythema or drainage MUSCULOSKELETAL: Extremities with trace + nonpitting bilateral lower extremity edema. NEUROLOGICAL: Anxious, opens eyes, tracks.Moves 4 to command, tracks with eyes, nods head. Procedures 04/30/16 - tracheostomy by Dr. Reyes 05/03/16 - EGD with PEG placement by Dr. 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 Ventilator bundle Bronchial dilator therapy every 6 hours With Atrovent nebs every 2 hours when necessary dyspnea Pulmonary Dr. Crane Re-intubation through mouth. Revise trach. CV: Monitor HR and BP keep MAP>65mmHg 2-D echo 03/26 EF 60%. No regional wall motion abnormality. Mild MR/TR. /FEN: Monitor renal function, I/O's, electrolytes replacement per protocol. GI: Constipation-resolved Moderate protein calorie malnutrition Nausea and vomiting Continue oral diet starting 05/29 Protonix 40mg daily Senna and Colace twice a day PEG tube placement- 05/03 Zofran 4 mg every 6 hours when necessary ID: Staph aureus pneumonia - resolved Pertinent culture 05/27 - sputum - MSSA 04/27 - pansensitive staph aureus 04/27 blood cultures 2 negative 04/25 - urine -no growth 04/19 - blood cultures 2 out of 4 - staph aureus 04/19 - sputum - staph aureus 04/08 - sputum - staph aureus 04/03 - sputum - staph aureus 03/30 - sputum- -staph aureus 03/27 - sputum - staph aureus 03/26 - blood - staph hominis On vancomycin 2 g IV every 12 are since 04/19 - 04/29 Azactam 04/27 through 04/29 Heme: Leukocytosis Monitor CBC/coags Monitor WBC labs every 3 days, unless clinically indicated. Repeat today Endo: Diabetes mellitus SSI for glycemic control with sliding scale insulin every 4 hours Levemir insulin 5 U hs, q6h SSI MSK Morbid obesity Weight loss encouraged DVT, GI prophylaxis -Bilateral lower extremity SCDs. IV Protonix 40 mg daily. Lovenox 40 mg sq BID LINES: -New SCV Left CVL placed 06/12 Overall impression: He became critically ill with diffuse pulmonary edema and hypoxemic respiratory failure; negative pressure pulmonary edema. Now improved gas exchange on APRV. It will be difficult to extubate him, will need to revise trach. Converted to conventional ventilation with PEEP 16. Critical Care 35 mins Jv Mathews MD Jun 15, 2016 11:07
[2016-06-15] MEDS: ACETAMINOPHEN 650 MG/20.3 ML UDC PO PRN ×2 (11:08→17:48)
[2016-06-15] MEDS ORDERED: ceFAZolin 2 GM PREMIX 50 ML IV SCH (12:00)
--- NOTE | 2016-06-15 12:55 | HHI.IDPN ---
Subjective Subjective Remarks Reconsult for fevers Patient is a 50-year-old male admitted to the hospital for shortness of breath. There is a history of possible sleep apnea, and he has morbid obesity as well as diabetes. Patient . remained on the vent and he underwent tracheostomy May 01, 2016. He was treated several times for MSSA pneumonia. He was being followed from the ID standpoint, and we signed off the case on May 08. At that time he had completed a course of antibiotics for his pneumonia. He was also doing well and tolerating T piece, and has been off the respirator. He was transferred out of the ICU, and was being followed by pulmonary. He had an episode of shortness of breath on May 27, which improved after his tracheostomy tube was replaced. He was in the ICU for a brief time on the respirator, and again successfully weaned from the vent, and placed back on T piece. He was not febrile at that time. There was a sputum culture that again grew MSSA, and unclear whether he had any treatment for that. His chest x-ray did not show any change from previous chest x-ray. He was again transferred to the floor, and on June 12 again had respiratory problem. He was transferred back to the intensive care unit, and the tracheostomy was reportedly small and came out, so the patient was orally intubated. His chest x-ray showed pulmonary edema. Since that time patient has been on the vent, and has had some fevers. He had a placement of a left subclavian central line, and a Becker catheter was placed. Previous to that he had a condom catheter. His WBC have been persistently elevated. There is been no diarrhea. Infectious disease has been requested to reevaluate his new fevers. He is currently off sedation On the vent BP is okay And he is febrile up to 101 Antibiotics Ancef Lines C TLC - 06/12 Past Medical History Reviewed Allergies: Coded Allergies: Penicillin (Verified Allergy, Severe, Swelling, 03/24/16) Tetanus Toxoid (Verified Allergy, Unknown, Swelling, 03/24/16) Objective . Vital Signs Date Time Temp Pulse Resp B/P Pulse Ox O2 Delivery O2 Flow Rate FiO2 06/15/16 11:34 97 40 06/15/16 08:00 30 06/15/16 08:00 101.7 93 9 106/66 100 06/15/16 07:50 97 30 06/15/16 07:00 96 Mechanical Ventilator 30 06/15/16 04:12 100 30 06/15/16 04:00 30 06/15/16 04:00 100.5 98 9 98/55 99 06/15/16 01:11 100 30 06/15/16 00:00 99.1 91 9 94/56 100 06/15/16 00:00 30 06/14/16 20:01 97 30 06/14/16 20:00 30 06/14/16 20:00 99.5 95 9 102/66 97 06/14/16 19:00 97 Mechanical Ventilator 30 06/14/16 16:33 100 30 06/14/16 16:00 100.9 95 9 102/61 100 06/14/16 16:00 30 06/14/16 14:45 100 30 06/14/16 06/14/16 06/15/16 15:00 23:00 07:00 Intake Total 991 ml 1471 ml 1170 ml Output Total 350 ml 400 ml 275 ml Balance 641 ml 1071 ml 895 ml IV Total 671 ml 1221 ml 1110 ml Tube Irrigant 320 ml 250 ml 60 ml Output Urine Total 200 ml 200 ml 225 ml Gastric Drainage Total 150 ml 200 ml 50 ml # Bowel Movements 0 1 . Laboratory Tests Test 06/14/16 06/15/16 05:00 05:20 Sodium Level 140 MEQ/L 140 MEQ/L Potassium Level 3.8 MEQ/L 3.7 MEQ/L Chloride Level 99 MEQ/L 102 MEQ/L Carbon Dioxide Level 32.3 MEQ/L 30.9 MEQ/L Anion Gap 9 MEQ/L 7 MEQ/L Blood Urea Nitrogen 12 MG/DL 11 MG/DL Creatinine 0.43 MG/DL 0.45 MG/DL Estimat Glomerular Filtration 209 ML/MIN 199 ML/MIN Rate Random Glucose 118 MG/DL 107 MG/DL Calcium Level 9.0 MG/DL 8.9 MG/DL B-Type Natriuretic Peptide 40 PG/ML Microbiology Date/Time Procedure Status Source Growth 06/12/16 16:00 Urine Culture - Final Complete Urine Catheterized Urine NO GROWTH IN 48 HOURS. Imaging Chest X-Ray 06/14/16 0400 Signed Impressions: Service Date/Time: June 03:48 - CONCLUSION: Significant improvement of the lungs with minimal residual disease the right lower lobe. Wale Dalal MD Abdomen X-Ray 06/12/16 0000 Signed Impressions: Service Date/Time: Sunday, June 12, 2016 17:57 - CONCLUSION: 1. Nasogastric tube in place with the tip projected over the distal stomach. 2. Unremarkable bowel gas pattern. Genaro Garcia MD Lower Extremity Ultrasound 06/04/16 0000 Signed Impressions: Service Date/Time: Saturday, June 04, 2016 14:54 - CONCLUSION: 1. No DVT identified. Dc Barton MD Liver Ultrasound 05/09/16 0000 Signed Impressions: Service Date/Time: Monday, May 09, 2016 22:28 - CONCLUSION: 1. Enlarged, fatty liver. 2. Small stones or tumefactive sludge adherent to one of the gallbladder arcos. 3. Splenomegaly. 4. Pancreas is obscured by overlying bowel gas and patient's body habitus. Arthur Kennedy MD Chest CT 03/28/16 0836 Signed Impressions: Service Date/Time: Monday, March 28, 2016 09:57 - CONCLUSION: Development areas of air bronchograms and consolidation more prominent in the right and left posterior basilar segments of the lower lobes. ET tube above the chanelle. Bernard Hartman MD CT Angiography 03/24/16 1121 Signed Impressions: Service Date/Time: Thursday, March 24, 2016 12:47 - CONCLUSION: 1. There is respiratory motion artifact but no PE is identified through most of the segmental level pulmonary arteries. 2. Mildly enlarged main pulmonary artery may indicate pulmonary arterial hypertension. 3. 11 mm left lower lobe noncalcified pulmonary nodule. Suggest correlation with any prior imaging studies that could confirm longer-term stability. If none are available consider short-term followup noncontrast chest CT in approximately 3 months. Ubaldo Rodas MD Last Impressions Chest X-Ray 05/03/16 0600 Signed Impressions: Service Date/Time: May 04:08 - CONCLUSION: 1. Subsegmental airspace disease in the lungs. Cardiomegaly. Kyle Lorenzo MD Abdomen X-Ray 05/01/16 0000 Signed Impressions: Service Date/Time: Sunday, May 01, 2016 17:28 - CONCLUSION: No evidence of obstruction. Feeding tube overlies the distal stomach, May have to be advanced slightly to reach the duodenum. Nick Jon MD Chest CT 03/28/16 0836 Signed Impressions: Service Date/Time: Monday, March 28, 2016 09:57 - CONCLUSION: Development areas of air bronchograms and consolidation more prominent in the right and left posterior basilar segments of the lower lobes. ET tube above the chanelle. Bernard Hartman MD CT Angiography 03/24/16 1121 Signed Impressions: Service Date/Time: Thursday, March 24, 2016 12:47 - CONCLUSION: 1. There is respiratory motion artifact but no PE is identified through most of the segmental level pulmonary arteries. 2. Mildly enlarged main pulmonary artery may indicate pulmonary arterial hypertension. 3. 11 mm left lower lobe noncalcified pulmonary nodule. Suggest correlation with any prior imaging studies that could confirm longer-term stability. If none are available consider short-term followup noncontrast chest CT in approximately 3 months. Ubaldo Rodas MD Physical Exam GENERAL: Awake and alert, obese, on the vent, not in distress, he is following commands. SKIN: Warm and moist. No generalized rash or ecchymosis. HEENT: [place] conjunctivae, no petechia or hemorrhage. Pupils equal and reactive , EOMs full and intact. No scleral icterus. No injection. No nasal drainage. He is orally intubated, has moist oral mucosa. NECK: Large and thick. Previous trach still open with some yellow drainage. No tenderness. CHEST: Coarse BS eufemia, equal breath sounds, decreased at the bases CARDIAC: regular rate and rhythm, no murmur ABDOMEN: soft, obese, (+) BS and normoactive, has R sided tenderness, no guarding or rebound. : Becker in place, urine looks clear MUSCULOSKELETAL: Extremities without clubbing, cyanosis. No edema NEUROLOGICAL: Awake and interacting. No facial asymmetry, LUCRECIA, full EOM. Moves all extremities. No Babinski PSYCH: Awake, cooperative LINE: LSC TLC with no evidence of infection : Becker in place, urine looks clear Assessment & Plan Remarks IMPRESSION Recurrent respiratory failure due to pulmonary edema - CXR better Fevers, etiology? - ?due to pulmonary - UA ok - has new line - has R sided abdominal tenderness - no diarrhea Leukocytosis, persistent Pneumonia, C/S MSSA, S/P Rx x 2 - last sputum 05/27 with MSSA JACOB Morbid obesity Allergy to PCN, swelling RECOMMENDATION Repeat C/S - BC, sputum Check LFT - if elevated, RUQ US Monitor temps Monitor progress Follow C/S Start Vanco and Azactam Continue Levaquin to cover other resistant GNR Stop Ancef I will follow with you Dr Augustine covering for me this weekend and will followup patient Elisha Painter MD Jun 15, 2016 12:55
[2016-06-15] MEDS: LEVOFLOXACIN 750 MG PREMIX INJ 150 ML IV SCH (13:00)
[2016-06-15] MEDS ORDERED: Vancomycin Consult Pharmacy 1 EA OTHER SCH (13:00)
[2016-06-15] MEDS: AZTREONAM INJ 1,000 MG in SODIUM CHLORIDE 0.9% INJ 100 ML IV SCH ×2 (13:16→21:44)
--- NOTE | 2016-06-15 13:51 | HHI.PR ---
Subjective Remarks acute respiratory failure back on vent. support ALERT TODAY , FOLLOWS SIMPLE COMMANDS Objective Vital Signs Date Time Temp Pulse Resp B/P Pulse Ox O2 Delivery O2 Flow Rate FiO2 06/15/16 12:00 40 06/15/16 12:00 100.0 85 25 98/60 96 06/15/16 11:34 97 40 06/15/16 08:00 30 06/15/16 08:00 101.7 93 9 106/66 100 06/15/16 07:50 97 30 06/15/16 07:00 96 Mechanical Ventilator 30 06/15/16 04:12 100 30 06/15/16 04:00 30 06/15/16 04:00 100.5 98 9 98/55 99 06/15/16 01:11 100 30 06/15/16 00:00 99.1 91 9 94/56 100 06/15/16 00:00 30 06/14/16 20:01 97 30 06/14/16 20:00 30 06/14/16 20:00 99.5 95 9 102/66 97 06/14/16 19:00 97 Mechanical Ventilator 30 06/14/16 16:33 100 30 06/14/16 16:00 100.9 95 9 102/61 100 06/14/16 16:00 30 06/14/16 14:45 100 30 I/O 06/14/16 06/14/16 06/14/16 06/15/16 06/15/16 06/15/16 07:00 15:00 23:00 07:00 15:00 23:00 Intake Total 650 ml 991 ml 1471 ml 1170 ml Output Total 300 ml 350 ml 400 ml 275 ml Balance 350 ml 641 ml 1071 ml 895 ml IV Total 650 ml 671 ml 1221 ml 1110 ml Tube Irrigant 320 ml 250 ml 60 ml Output Urine Total 200 ml 200 ml 200 ml 225 ml Gastric Drainage Total 100 ml 150 ml 200 ml 50 ml # Bowel Movements 0 0 1 Result Diagram: 06/12/16 0450 06/15/16 0520 Objective Remarks GENERAL: SKIN: Warm and dry.on vent support HEAD: Atraumatic. Normocephalic. EYES: Pupils equal and round. No scleral icterus. No injection or drainage. ENT: No nasal bleeding or discharge. Mucous membranes pink and moist. NECK: Trachea midline. No JVD. CARDIOVASCULAR: Regular rate and rhythm. RESPIRATORY: No accessory muscle use. Clear to auscultation. Breath sounds equal bilaterally. GASTROINTESTINAL: Abdomen soft, non-tender, nondistended. Hepatic and splenic margins not palpable. MUSCULOSKELETAL: Extremities without clubbing, cyanosis, or edema. No obvious deformities. NEUROLOGICAL: Awake and alert. No obvious cranial nerve deficits. Motor grossly within normal limits. Five out of 5 muscle strength in the arms and legs. Normal speech. PSYCHIATRIC: Appropriate mood and affect; insight and judgment normal. Assessment and Plan Assessment and Plan respiratory failure morbid obesity plan vent support pulm toilet prognosis guarded Orlando Perry MD Jun 15, 2016 13:51
[2016-06-15] MEDS ORDERED: VANCOMYCIN INJ 1,500 MG in SODIUM CHLORID 0.9% 500 ML INJ 500 ML IV ONE (14:00)
[2016-06-15 15:52] LABS: INDIRECT BILIRUBIN 0.6 MG/DL (0.0-0.8); TOTAL BILIRUBIN ADULT 0.9 MG/DL (0.2-1.0)
[2016-06-15] MEDS: RESP: ALBUTEROL 2.5 MG/IPRATROPIUM 0.5 MG NEB (PRN) NEB (20:26)
[2016-06-15] MEDS: INSULIN DETEMIR 100 UNITS/ML VIAL SQ SCH (21:00)
[2016-06-16] VITALS (10 sets, daily range): BP systolic 96–108; BP diastolic 55–67; PULSE 78–86; RESP 14–24; TEMP 99.7–100.4; O2SAT 95–100
[2016-06-16] MEDS: ACETAMINOPHEN 650 MG/20.3 ML UDC PO PRN ×2 (01:16→17:04)
[2016-06-16] MEDS: ARTIFICIAL TEARS OPTH SOLN 15 ML BTL EACH EYE SCH ×6 (01:21→22:00)
[2016-06-16] MEDS: POTASSIUM CHLORIDE INJ 10 MEQ in SODIUM CHLOR 0.9% 1000 ML INJ 1,000 ML IV SCH ×4 (01:21→21:47)
[2016-06-16] MEDS: VANCOMYCIN 1,500 MG/NS 500 ML IV SCH ×4 (01:21→14:44)
[2016-06-16] MEDS: AZTREONAM INJ 1,000 MG in SODIUM CHLORIDE 0.9% INJ 100 ML IV SCH ×3 (04:37→21:32)
[2016-06-16] MEDS: ENOXAPARIN SODIUM 40 MG/0.4 ML SYRINGE SQ SCH ×2 (05:35→17:05)
[2016-06-16] MEDS: INSULIN ASPART SUPPLEMENTAL SCALE SQ SCH ×4 (07:00→21:00)
[2016-06-16 07:08] LABS: POTASSIUM 3.4 MEQ/L (3.5-5.1)
[2016-06-16] MEDS: RESP: ALBUTEROL 2.5 MG/IPRATROPIUM 0.5 MG NEB (PRN) NEB ×2 (07:50→21:42)
[2016-06-16] MEDS: SODIUM CHLORIDE 0.9% FLUSH 5 ML FLUSH IVF SCH (09:00)
[2016-06-16] MEDS: fentaNYL 25 MCG/HR PATCH TD SCH (09:00)
[2016-06-16] MEDS: REMOVE OLD PATCH T-DERMAL SCH (09:00)
[2016-06-16] MEDS: POLYETHYLENE GLYCOL 17 GM PKG PO SCH ×2 (09:00→21:00)
[2016-06-16] MEDS: BENEPROTEIN POWDER 1 PACK G-TUBE SCH ×3 (09:00→17:05)
[2016-06-16] MEDS: CHLORHEXIDINE 0.12% (ORAL KIT) 15 ML CUP MT SCH ×2 (10:20→20:00)
[2016-06-16] MEDS: SENNOSIDES SYRUP 8.8 MG/5 ML CUP PO/TUBE SCH ×2 (10:21→21:00)
[2016-06-16] MEDS: ACETAMINOPHEN/HYDROcodone 325 MG/5 MG TAB PO SCH ×2 (10:21→21:31)
[2016-06-16] MEDS: DOCUSATE SODIUM 100 MG/10 ML UDC PO SCH ×2 (10:21→21:00)
[2016-06-16] MEDS: PREGABALIN 25 MG CAP PO SCH (10:21)
[2016-06-16] MEDS: POTASSIUM CHLORIDE 10 MEQ CONTROLLED RELEASE TAB PO SCH (10:21)
[2016-06-16] MEDS: PANTOPRAZOLE SOD 40 MG DELAYED RELEASE TAB PO SCH (10:22)
[2016-06-16] MEDS: BACLOFEN 10 MG TAB PO SCH ×2 (10:22→21:31)
[2016-06-16] MEDS: QUEtiapine FUMARATE 25 MG TAB PO SCH ×2 (10:22→21:31)
[2016-06-16] MEDS: LACTOBACILLUS ACIDOPHILUS TAB PO SCH ×3 (10:22→17:04)
[2016-06-16] MEDS: SILVER SULFADIAZINE 1% CR 400 GM JAR TOPICAL SCH (10:24)
[2016-06-16] MEDS: NYSTATIN 100,000 U/GM PWD 15 GM BTL TOPICAL SCH ×2 (10:24→21:00)
[2016-06-16] MEDS: BETAMETHASONE/CLOTRIMAZOLE CREAM 15 GM TOPICAL SCH ×2 (10:24→21:00)
--- NOTE | 2016-06-16 10:54 | HHI.CCPN ---
Subjective Remarks/Hospital Course Patient is a 50 years old obese male with past medical history significant for undiagnosed sleep apnea, super morbid obesity, type 2 diabetes was brought to the emergency department on 03/24/16 after feeling light headed and dizzy. On presentation here was found to be hypoxemic and ABG showed severe hypoxemia and hypercarbia. For a recent driving physical he was diagnosed with low oxygen saturations. Patient's oxygen saturation the ED was in the low 80s, which was confirmed on ABG with a oxygen saturation of 78% and PO2 of 46. CTA negative for PE. Patient was initiated on BiPAP therapy with consult to pulmonary Dr. Crane. His oxygenation improved but he continued to be hypercapnic. Today a.m. on nasal cannula his pH was 7.26 and PCO2 was increased at 99, patient was somnolent was placed back on BiPAP and repeat ABG at noon showed pH 7.26 PCO2 98 and pO2 70. This was on 16 BiPAP with FiO2 50%. Critical care was consulted. On my evaluation patient is somnolent but wakes up easily. I reduced the PEEP on BiPAP from 12-7 to facilitate better ventilation. A repeat ANG showed only minimal improvement, so decision made to intubate patient. Glidescope with #4 blade was used. Only propofol was used for induction. Initially I had a Grade 1-2 view, but I was unable to pass tube through the vocal cord to trachea in two attempts. Tube slipped out of Laryngeal opening both times. Dr Garrett intubated patient after NM paralysis with succinylcholine. Post intubation ABG showed improvement in hypercapnia and oxygenation. 03/27/16: Patient remains intubated heavily sedated with propofol and fentanyl. Remained severely hypoxemic on 100% FiO2, PEEP12, chest x-ray shows bibasilar infiltrates. Flagyl added. We'll give 1 dose of vancomycin-Adjust antibiotics according to cultures. Patient super morbid obesity may prevent Prone therapy 03/28: Remains hypoxic but ABG shows marginal improvement in oxygenation. WBC increasing 20.1 today. Start vancomycin scheduled. 03/29: Oxygenation is slightly improved. FiO2 reduced to 50% today. Chest x- ray remains unchanged. On sedation hold patient does wake up and follow commands. WBC count remains at 20 03/30 No acute events overnight. Sedated with Diprivan and Fentanyl. Had T: 100.1 at 4 am. WBC trending down 15.9 today from 20. 03/31 Patient remains sedated with Diprivan, Fentanyl and intubated. Tmax 100.1. Patient required increase O2 overnight now on ACV with PEEP: 12 and FIO2 70%. 04/01: Tmax 99.7. No bowel movement since admission. Patient has bowel sounds. Arousable on the ventilator. We'll attempt prone the patient paralyzed to increase oxygenation status. 04/02: MAXIMUM TEMPERATURE 100.9. Currently 97.7. 5 10 cc stools overnight. Placed on Roto prone yesterday. Saturations currently 94% on Flolan. Diuresed overnight. Creatinine still within normal limits. 04/03: Tmax 101. Currently 99.1. Positive BM. Did not tolerate not being unprone this AM. Saturations much improved prone. Tolerating tube feeding. 04/04: Tmax 100.8. Currently 98.8. +2 L past 24 hours. Attempt to on prone today. Positive BM. C. difficile negative. Remains paralyzed. 04/05: Remains sedated, orally intubated on neuromuscular blockade on mechanical ventilation. Remains on Rota prone bed. On insulin drip. 04/06: Remains sedated, orally intubated on neuromuscular blockade, on mechanical ventilation. Remains on Rota prone bed. Insulin drip continues. 04/07 Patient remains on Rotoprone bed sedated with Diprivan, Versed, Fentanyl in addition patient is on Nimbex. Afebrile. On Insulin drip 5u/hr. 04/08 Patient remains sedated and intubated and on Nimbex. Off insulin drip. On PRVC/AC with RR 15, TV 550, IT: 1.65, PEEP: 15 and FIO2 100%. T: 100.2 at 4 am. 04/09 Patient is sedated, intubated and remains on neuromuscular blockade. Vent setting unchanged. afebrile. 04/10 Patient remains sedated and intubated and on Nimbex. On PRVC/AC, RR 15, TV 500, PEEP: 15, FIO2 90%, IT:1.65, on Flolan drip. Remains on Rotoprone bed. 04/11 minimal improvement in oxygenation, FiO2 now at 75 - continue to improve oxygenation, worsening CXR 04/13/10 continue to improve oxygenation DC'd prone position last night 04/14- improving oxygenation, Nimbex discontinued as well as prone position 04/16 Patient is sedated with Versed and Fentanyl and intubated. Off rotoprone bed. On PRVC/AC RR 15, TV 550, IT 1.65, PEEP:15, FIO2 50%. 04/17 Patient remains sedated with Versed and Fentanyl. Afebrile, tolerating tube feeds 04/18 No acute events overnight Sedated and intubated. Afebrile. On PRVC/AC RR 15 , TV 550, IT 1.65, PEEP:15, FIO2 60% 04/19: Spiking fever up to 101, pancultured and 1 dose of vancomycin given by ID. On weaning doses of Flolan. FiO2 down to 50% I have reduced PEEP to 14. Remains critically ill 04/20: No fever. Sputum cx with Staph -S pending. Fio2 50% PEEP remains at 14. TV increased to 650 to improve lung recruitment. On weaning dose of Flolan-DC after current bag 04/21:Afebrile. Hyponatremia resolving, the patient will be placed on free water flushes. 04/22:The patient had an episode of acute desaturation requiring FiO2 increased to 90%. Stat chest x-ray stat ABG aggressive pulmonary toileting and suctioning , resolution of symptoms FiO2 now 55%. ABGs within normal limits. 04/23: Tmax 99.5. Currently afebrile. O2 sat 50%. PEEP down to 13. One small bowel movement overnight. 04/24: Currently afebrile. O2 sat 45%. PEEP to 12. One BM. Tolerating tube feeds. 04/25: Afebrile. PEEP down to 11. Positive BM. Tolerating tube feeds. Awake on the ventilator with eyes open. 04/26: Afebrile. PEEP down to 10. Time to feeding. Awake and alert eyes open. 04/27: Suspected fever overnight. One bowel movement documented. Will decreased PEEP to 9. Awake and alert and follows commands. 04/28: Tmax 99.3. Currently afebrile. FiO2 increased to 70%. PEEP to 10. Awake and does follow commands. Positive BM 4 yesterday. 04/29: FiO2 down to 55%. Peak systolic 10. Awake and does follow commands. Positive BM 1 yesterday. Tolerating tube feeding. 04/30: No acute issues overnight . The patient continues to be sedated with plans for tracheostomy in the OR today. The patient follows commands when on sedation vacation. 05/01: Postop day 1 post tracheostomy tube placement, no issues overnight. Plan for CPAP trials today. 05/02: Afebrile. The patient continues on CPAP trial 15/5 , FiO2 .45%. The patient alert and responsive this a.m., continues on Precedex and fentanyl infusion. By mouth narcotics, and fentanyl patch instituted to transition all fentanyl infusion. PEG tube placement pending. 05/03: The patient's fentanyl infusion was discontinued last evening. Multimodal analgesia initiated. Patient continues on Precedex infusion, GCS 14 T. Plans today for PEG placement later on this afternoon. No acute issues overnight. 05/04 Tmax 101.0. The patient's PICC line was removed, peripheral IVs initiated. Blood, urine and sputum cultures obtained. Methylprednisolone continues to be weaned currently at 20 mg daily. Plan for weaning of Precedex infusion off today. Seroquel 25 mg twice a day added to medication regimen. The patient continues on CPAP trials. 05/05: Tmax 99.1. Overnight the patient was maintained on CPAP trials of 15/5/40% , the patient's respiratory rate continues to be low 30s, tolerated well. The sake early this a.m. the patient was noticed to have a episode of nausea and vomiting Zofran instituted. The patient continues on scheduled Reglan TID. Blood , sputum and urine cultures were obtained yesterday secondary to elevated temperature awaiting results. 05/06: The patient remains on T piece greater than 48 hours. The patient is alert oriented and cooperative. Trach site without erythema or drainage. Patient was noticed over the last 12 hours to have multiple bowel movements or in the night. Will D/C MiraLAX, lactulose and Reglan will be discontinued. Plan for possible transfer to LTAC facility. 05/07 no acute issues overnight tolerating TPs 05/27 shortly after midnight rapid response team was called due to patient's respiratory distress and hypercarbic respiratory failure with hypoxemia and cyanosis 05/27: Tracheostomy was exchanged this morning to a #6 Shiley fenestrated cuffed. Currently on PRVC with PEEP of 10. Saturations are much improved. Awake and alert and following commands. Requesting diet. 05/28: Awake and alert. On mechanical ventilation via tracheostomy. Following commands. 05/29: Awake and alert. On mechanical ventilation via tracheostomy. Tolerating PO diet. Following commands. 05/30: Awake and alert. On mechanical ventilation via tracheostomy. Tolerating by mouth diet. Following commands. 05/31: Remains on mechanical ventilation via tracheostomy. Tolerating C Pap/ pressure support. Following commands. Tolerating by mouth diet. 06/01: Remains on mechanical ventilation via tracheostomy. Awake and alert. Tolerated C Pap and pressure support however gets extremely tachypneic on dropping pressure-support to +5. Tolerating by mouth diet 06/02: Tmax 99.5. Currently 99. Currently on T piece trial. Condom catheter placed. Subjective 06/03: Currently T piece trial. Saturations around 98 %. Appears comfortable. He is in no acute distress. No issues overnight 06/12: Hypoxemic respiratory failure and difficulty bag ventilating. Rushed to ICU with acceptable sats and immediately intubated through the mouth. Trach tube removed. Good ventilation immediately restored. CXR with diffuse pulmonary edema - question negative pressure. 06/13: Persistent diffuse infiltrates, MSSA sputum, start abx. Hydrate for oliguria. Convert to APRV for recruitment. 06/14: CXR has cleared and well expanded on APRV. Will work to convert to conventional and revise trach. 06/15: CXR clear. MSSA colonized but fever persists. Treat. Need to revise trach. 06/16: Breathing comfortably on SBT 15/12. Will work to extubation but will probably need a #8 trach replaced. Objective Vital Signs Date Time Temp Pulse Resp B/P Pulse Ox O2 Delivery O2 Flow Rate FiO2 06/16/16 10:10 40 06/16/16 10:10 97 06/16/16 08:00 Mechanical Ventilator 06/15/16 20:00 99.9 97 20 100/55 06/12/16 08:10 6.00 Intake and Output 06/15/16 06/15/16 06/16/16 08:00 16:00 00:00 Intake Total 1170 ml 2362 ml 1553 ml Output Total 275 ml 225 ml 525 ml Balance 895 ml 2137 ml 1028 ml Result Diagram: 06/12/16 0450 06/16/16 0558 Imaging Last Impressions Chest X-Ray 05/28/16 0600 Signed Impressions: Service Date/Time: Saturday, May 28, 2016 04:49 - CONCLUSION: Unchanged bibasilar densities. Wale Dalal MD Liver Ultrasound 05/09/16 0000 Signed Impressions: Service Date/Time: Monday, May 09, 2016 22:28 - CONCLUSION: 1. Enlarged, fatty liver. 2. Small stones or tumefactive sludge adherent to one of the gallbladder arcos. 3. Splenomegaly. 4. Pancreas is obscured by overlying bowel gas and patient's body habitus. Arthur Kennedy MD Abdomen X-Ray 05/01/16 0000 Signed Impressions: Service Date/Time: Sunday, May 01, 2016 17:28 - CONCLUSION: No evidence of obstruction. Feeding tube overlies the distal stomach, May have to be advanced slightly to reach the duodenum. Nick Jon MD Chest CT 03/28/16 0836 Signed Impressions: Service Date/Time: Monday, March 28, 2016 09:57 - CONCLUSION: Development areas of air bronchograms and consolidation more prominent in the right and left posterior basilar segments of the lower lobes. ET tube above the chanelle. Bernard Hartman MD CT Angiography 03/24/16 1121 Signed Impressions: Service Date/Time: Thursday, March 24, 2016 12:47 - CONCLUSION: 1. There is respiratory motion artifact but no PE is identified through most of the segmental level pulmonary arteries. 2. Mildly enlarged main pulmonary artery may indicate pulmonary arterial hypertension. 3. 11 mm left lower lobe noncalcified pulmonary nodule. Suggest correlation with any prior imaging studies that could confirm longer-term stability. If none are available consider short-term followup noncontrast chest CT in approximately 3 months. Ubaldo Rodas MD Objective Remarks GENERAL: 50-year-old morbidly obese male SKIN: Integrity intact. Warm and dry. HEAD: Atraumatic. Normocephalic. EYES: MARITZA, 2 millimeters bilaterally. ENT: Tracheostomy removed, site draining clear material. CARDIOVASCULAR: Distant heart sounds, tachycardia. RRR. S1, S2. No S4. Without murmur RESPIRATORY: No crackles, no wheezes. Diminished breath sounds due to body habitus. GASTROINTESTINAL: Abdomen soft, obese, nontender. Severe central obesity, PEG tube without erythema or drainage MUSCULOSKELETAL: Extremities with trace + nonpitting bilateral lower extremity edema. NEUROLOGICAL: Anxious, opens eyes, tracks.Moves 4 to command, tracks with eyes, nods head. Procedures 04/30/16 - tracheostomy by Dr. Reyes 05/03/16 - EGD with PEG placement by Dr. 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 Ventilator bundle Bronchial dilator therapy every 6 hours With Atrovent nebs every 2 hours when necessary dyspnea Pulmonary Dr. Crane Re-intubation through mouth. Revise trach. CV: Monitor HR and BP keep MAP>65mmHg 2-D echo 03/26 EF 60%. No regional wall motion abnormality. Mild MR/TR. /FEN: Monitor renal function, I/O's, electrolytes replacement per protocol. GI: Constipation-resolved Moderate protein calorie malnutrition Nausea and vomiting Continue oral diet starting 05/29 Protonix 40mg daily Senna and Colace twice a day PEG tube placement- 05/03 Zofran 4 mg every 6 hours when necessary ID: Staph aureus pneumonia - resolved Pertinent culture 05/27 - sputum - MSSA 04/27 - pansensitive staph aureus 04/27 blood cultures 2 negative 04/25 - urine -no growth 04/19 - blood cultures 2 out of 4 - staph aureus 04/19 - sputum - staph aureus 04/08 - sputum - staph aureus 04/03 - sputum - staph aureus 03/30 - sputum- -staph aureus 03/27 - sputum - staph aureus 03/26 - blood - staph hominis On vancomycin 2 g IV every 12 are since 04/19 - 04/29 Azactam 04/27 through 04/29 Heme: Leukocytosis Monitor CBC/coags Monitor WBC labs every 3 days, unless clinically indicated. Repeat today Endo: Diabetes mellitus SSI for glycemic control with sliding scale insulin every 4 hours Levemir insulin 5 U hs, q6h SSI MSK Morbid obesity Weight loss encouraged DVT, GI prophylaxis -Bilateral lower extremity SCDs. IV Protonix 40 mg daily. Lovenox 40 mg sq BID LINES: -New SCV Left CVL placed 06/12 Overall impression: He became critically ill with diffuse pulmonary edema and hypoxemic respiratory failure; negative pressure pulmonary edema. Now improved gas exchange on APRV. It will be difficult to extubate him, will need to revise trach. Converted to conventional ventilation with PEEP 1, now tolerating SBT PEEP 10. Critical Care 35 mins Jv Mathews MD Jun 16, 2016 10:54
--- NOTE | 2016-06-16 11:57 | HHI.IDPN ---
Note Infectious Disease Note ID COVERAGE: Notes reviewed D/W RN Patient on CPAP. Temp lower. Awakens and responds. Patient is a 50-year-old male admitted to the hospital for shortness of breath. Infectious disease has been requested to reevaluate his new fevers. Antibiotics vanco. Azactam. Levaquin. Lines C TLC - 06/12 Past Medical History Reviewed Allergies: Coded Allergies: Penicillin (Verified Allergy, Severe, Swelling, 03/24/16) Tetanus Toxoid (Verified Allergy, Unknown, Swelling, 03/24/16) Objective Vital Signs Date Time Temp Pulse Resp B/P Pulse Ox O2 Delivery O2 Flow Rate FiO2 06/16/16 10:10 40 06/16/16 10:10 97 40 06/16/16 08:30 40 06/16/16 08:00 40 06/16/16 08:00 99 Mechanical Ventilator 40 06/16/16 07:41 97 40 06/16/16 04:00 40 06/16/16 03:54 99 40 06/16/16 00:20 99 40 06/16/16 00:00 40 06/15/16 20:23 95 40 06/15/16 20:00 98 Mechanical Ventilator 40 06/15/16 20:00 40 06/15/16 20:00 99.9 97 20 100/55 96 06/15/16 16:00 40 06/15/16 16:00 99.9 80 17 110/57 97 06/15/16 15:30 100 40 06/15/16 12:00 40 06/15/16 12:00 100.0 85 25 98/60 96 06/15/16 06/15/16 06/16/16 14:59 22:59 06:59 Intake Total 2362 ml 1553 ml 1505 ml Output Total 225 ml 525 ml 600 ml Balance 2137 ml 1028 ml 905 ml IV Total 1982 ml 1370 ml 1305 ml Tube Feeding 63 ml 140 ml Tube Irrigant 380 ml 120 ml 60 ml Output Urine Total 225 ml 525 ml 600 ml # Bowel Movements 1 0 Laboratory Tests Test 06/15/16 06/15/16 06/16/16 05:20 14:52 05:58 Sodium Level 140 MEQ/L 141 MEQ/L Potassium Level 3.7 MEQ/L 3.4 MEQ/L Chloride Level 102 MEQ/L 106 MEQ/L Carbon Dioxide Level 30.9 MEQ/L 28.0 MEQ/L Anion Gap 7 MEQ/L 7 MEQ/L Blood Urea Nitrogen 11 MG/DL 6 MG/DL Creatinine 0.45 MG/DL 0.38 MG/DL Estimat Glomerular Filtration 199 ML/MIN 242 ML/MIN Rate Random Glucose 107 MG/DL 91 MG/DL Calcium Level 8.9 MG/DL 8.2 MG/DL Total Bilirubin 0.9 MG/DL Direct Bilirubin 0.3 MG/DL Indirect Bilirubin 0.6 MG/DL Aspartate Amino Transf 11 U/L (AST/SGOT) Alanine Aminotransferase 15 U/L (ALT/SGPT) Alkaline Phosphatase 51 U/L Total Protein 6.1 GM/DL Albumin 2.3 GM/DL Microbiology Date/Time Procedure Status Source Growth 06/15/16 14:52 Aerobic Blood Culture - Preliminary Resulted Blood Peripheral NO GROWTH IN 1 DAY 06/15/16 14:52 Anaerobic Blood Culture - Preliminary Resulted Blood Peripheral NO GROWTH IN 1 DAY 06/15/16 14:59 Aerobic Blood Culture - Preliminary Resulted Blood Peripheral NO GROWTH IN 1 DAY 06/15/16 14:59 Anaerobic Blood Culture - Preliminary Resulted Blood Peripheral NO GROWTH IN 1 DAY 06/15/16 16:35 Gram Stain - Final Resulted Sputum Endotracheal 06/15/16 16:35 Sputum Culture Resulted Sputum Endotracheal Pending Imaging Chest X-Ray 06/14/16 0400 Signed Impressions: Service Date/Time: June 03:48 - CONCLUSION: Significant improvement of the lungs with minimal residual disease the right lower lobe. Wale Dalal MD Abdomen X-Ray 06/12/16 0000 Signed Impressions: Service Date/Time: Sunday, June 12, 2016 17:57 - CONCLUSION: 1. Nasogastric tube in place with the tip projected over the distal stomach. 2. Unremarkable bowel gas pattern. Genaro Garcia MD Lower Extremity Ultrasound 06/04/16 0000 Signed Impressions: Service Date/Time: Saturday, June 04, 2016 14:54 - CONCLUSION: 1. No DVT identified. Dc Barton MD Liver Ultrasound 05/09/16 0000 Signed Impressions: Service Date/Time: Monday, May 09, 2016 22:28 - CONCLUSION: 1. Enlarged, fatty liver. 2. Small stones or tumefactive sludge adherent to one of the gallbladder arcos. 3. Splenomegaly. 4. Pancreas is obscured by overlying bowel gas and patient's body habitus. Arthur Kennedy MD Chest CT 03/28/16 0836 Signed Impressions: Service Date/Time: Monday, March 28, 2016 09:57 - CONCLUSION: Development areas of air bronchograms and consolidation more prominent in the right and left posterior basilar segments of the lower lobes. ET tube above the chanelle. Bernard Hartman MD CT Angiography 03/24/16 1121 Signed Impressions: Service Date/Time: Thursday, March 24, 2016 12:47 - CONCLUSION: 1. There is respiratory motion artifact but no PE is identified through most of the segmental level pulmonary arteries. 2. Mildly enlarged main pulmonary artery may indicate pulmonary arterial hypertension. 3. 11 mm left lower lobe noncalcified pulmonary nodule. Suggest correlation with any prior imaging studies that could confirm longer-term stability. If none are available consider short-term followup noncontrast chest CT in approximately 3 months. Ubaldo Rodas MD Last Impressions Chest X-Ray 05/03/16 0600 Signed Impressions: Service Date/Time: May 04:08 - CONCLUSION: 1. Subsegmental airspace disease in the lungs. Cardiomegaly. Kyle Lorenzo MD Abdomen X-Ray 05/01/16 0000 Signed Impressions: Service Date/Time: Sunday, May 01, 2016 17:28 - CONCLUSION: No evidence of obstruction. Feeding tube overlies the distal stomach, May have to be advanced slightly to reach the duodenum. Nick Jon MD Chest CT 03/28/16 0836 Signed Impressions: Service Date/Time: Monday, March 28, 2016 09:57 - CONCLUSION: Development areas of air bronchograms and consolidation more prominent in the right and left posterior basilar segments of the lower lobes. ET tube above the chanelle. Bernard Hartman MD CT Angiography 03/24/16 1121 Signed Impressions: Service Date/Time: Thursday, March 24, 2016 12:47 - CONCLUSION: 1. There is respiratory motion artifact but no PE is identified through most of the segmental level pulmonary arteries. 2. Mildly enlarged main pulmonary artery may indicate pulmonary arterial hypertension. 3. 11 mm left lower lobe noncalcified pulmonary nodule. Suggest correlation with any prior imaging studies that could confirm longer-term stability. If none are available consider short-term followup noncontrast chest CT in approximately 3 months. Ubaldo Rodas MD GENERAL: Patient is awake and alert. HEENT: EOMI,PERRLA. No icterus. LUNGS: Decreased breath sounds. CARDIAC: Regular rate and rhythm. ABDOMEN: Soft. Non tender, psoitive bowel sounds. EXTREMITIES: No CC trace edema. SKIN: No rash. Assessment & Plan Remarks IMPRESSION Recurrent respiratory failure due to pulmonary edema - CXR better Fevers, etiology? - ?due to pulmonary - UA ok - has new line - has R sided abdominal tenderness - no diarrhea Leukocytosis, persistent Pneumonia, C/S MSSA, S/P Rx x 2 - last sputum 05/27 with MSSA Morbid obesity Allergy to PCN, swelling Continue Vanco and Azactam Continue Levaquin to cover other resistant GNR Follow cultures. Monitor temps Monitor progress Addison Augustine MD Jun 16, 2016 11:56 Addison Augustine MD Jun 16, 2016 11:56
--- NOTE | 2016-06-16 12:56 | HHI.PR ---
Subjective Remarks acute respiratory failure back on vent. support ALERT TODAY , FOLLOWS SIMPLE COMMANDS Objective Vital Signs Date Time Temp Pulse Resp B/P Pulse Ox O2 Delivery O2 Flow Rate FiO2 06/16/16 12:00 40 06/16/16 10:10 40 06/16/16 10:10 97 40 06/16/16 08:30 40 06/16/16 08:00 40 06/16/16 08:00 99 Mechanical Ventilator 40 06/16/16 07:41 97 40 06/16/16 04:00 40 06/16/16 03:54 99 40 06/16/16 00:20 99 40 06/16/16 00:00 40 06/15/16 20:23 95 40 06/15/16 20:00 98 Mechanical Ventilator 40 06/15/16 20:00 40 06/15/16 20:00 99.9 97 20 100/55 96 06/15/16 16:00 40 06/15/16 16:00 99.9 80 17 110/57 97 06/15/16 15:30 100 40 I/O 06/15/16 06/15/16 06/15/16 06/16/16 06/16/16 06/16/16 07:00 15:00 23:00 07:00 15:00 23:00 Intake Total 1170 ml 2362 ml 1553 ml 1505 ml Output Total 275 ml 225 ml 525 ml 600 ml Balance 895 ml 2137 ml 1028 ml 905 ml IV Total 1110 ml 1982 ml 1370 ml 1305 ml Tube Feeding 63 ml 140 ml Tube Irrigant 60 ml 380 ml 120 ml 60 ml Output Urine Total 225 ml 225 ml 525 ml 600 ml Gastric Drainage Total 50 ml # Bowel Movements 1 1 0 Result Diagram: 06/12/16 0450 06/16/16 0558 Objective Remarks GENERAL: SKIN: Warm and dry.on vent support HEAD: Atraumatic. Normocephalic. EYES: Pupils equal and round. No scleral icterus. No injection or drainage. ENT: No nasal bleeding or discharge. Mucous membranes pink and moist. NECK: Trachea midline. No JVD. CARDIOVASCULAR: Regular rate and rhythm. RESPIRATORY: No accessory muscle use. Clear to auscultation. Breath sounds equal bilaterally. GASTROINTESTINAL: Abdomen soft, non-tender, nondistended. Hepatic and splenic margins not palpable. MUSCULOSKELETAL: Extremities without clubbing, cyanosis, or edema. No obvious deformities. NEUROLOGICAL: Awake and alert. No obvious cranial nerve deficits. Motor grossly within normal limits. Five out of 5 muscle strength in the arms and legs. Normal speech. PSYCHIATRIC: Appropriate mood and affect; insight and judgment normal. Assessment and Plan Assessment and Plan respiratory failure morbid obesity plan vent support pulm toilet prognosis guarded Orlando Perry MD Jun 16, 2016 12:55
[2016-06-16] MEDS: LEVOFLOXACIN 750 MG PREMIX INJ 150 ML IV SCH (13:24)
[2016-06-16] MEDS: INSULIN DETEMIR 100 UNITS/ML VIAL SQ SCH (21:32)
[2016-06-17] VITALS (12 sets, daily range): BP systolic 98–117; BP diastolic 58–71; PULSE 81–91; RESP 21–27; TEMP 99.3–101.3; O2SAT 93–99
[2016-06-17] MEDS ORDERED: PHARMACY ORDERED LAB ONE (01:45)
[2016-06-17] MEDS: ARTIFICIAL TEARS OPTH SOLN 15 ML BTL EACH EYE SCH ×6 (02:00→20:26)
[2016-06-17] MEDS: VANCOMYCIN 1,500 MG/NS 500 ML IV SCH ×2 (02:49)
[2016-06-17] MEDS: POTASSIUM CHLORIDE INJ 10 MEQ in SODIUM CHLOR 0.9% 1000 ML INJ 1,000 ML IV SCH ×2 (04:29→12:38)
[2016-06-17] MEDS: AZTREONAM INJ 1,000 MG in SODIUM CHLORIDE 0.9% INJ 100 ML IV SCH ×3 (04:33→20:24)
[2016-06-17] MEDS: ACETAMINOPHEN 650 MG/20.3 ML UDC PO PRN ×2 (04:33→17:40)
[2016-06-17] MEDS: ENOXAPARIN SODIUM 40 MG/0.4 ML SYRINGE SQ SCH ×2 (05:51→17:40)
[2016-06-17 06:19] LABS: BICARBONATE 28.8 MEQ/L (21.0-32.0); POTASSIUM 3.2 MEQ/L (3.5-5.1)
[2016-06-17] MEDS: INSULIN ASPART SUPPLEMENTAL SCALE SQ SCH ×4 (06:50→20:25)
[2016-06-17] MEDS: POLYETHYLENE GLYCOL 17 GM PKG PO SCH ×2 (09:00→19:48)
[2016-06-17] MEDS: BENEPROTEIN POWDER 1 PACK G-TUBE SCH ×3 (09:00→17:41)
[2016-06-17] MEDS: SENNOSIDES SYRUP 8.8 MG/5 ML CUP PO/TUBE SCH ×2 (09:00→19:48)
[2016-06-17] MEDS: SODIUM CHLORIDE 0.9% FLUSH 5 ML FLUSH IVF SCH (09:00)
[2016-06-17] MEDS: DOCUSATE SODIUM 100 MG/10 ML UDC PO SCH ×2 (09:00→19:48)
[2016-06-17] MEDS: ACETAMINOPHEN/HYDROcodone 325 MG/5 MG TAB PO SCH ×2 (09:16→20:25)
[2016-06-17] MEDS: CHLORHEXIDINE 0.12% (ORAL KIT) 15 ML CUP MT SCH ×2 (09:16→20:24)
[2016-06-17] MEDS: LACTOBACILLUS ACIDOPHILUS TAB PO SCH ×3 (09:17→17:40)
[2016-06-17] MEDS: BACLOFEN 10 MG TAB PO SCH ×2 (09:17→20:24)
[2016-06-17] MEDS: POTASSIUM CHLORIDE 10 MEQ CONTROLLED RELEASE TAB PO SCH (09:17)
[2016-06-17] MEDS: QUEtiapine FUMARATE 25 MG TAB PO SCH ×2 (09:17→20:25)
[2016-06-17] MEDS: PANTOPRAZOLE SOD 40 MG DELAYED RELEASE TAB PO SCH (09:17)
[2016-06-17] MEDS: PREGABALIN 25 MG CAP PO SCH (09:17)
[2016-06-17] MEDS: SILVER SULFADIAZINE 1% CR 400 GM JAR TOPICAL SCH (09:18)
[2016-06-17] MEDS: BETAMETHASONE/CLOTRIMAZOLE CREAM 15 GM TOPICAL SCH ×2 (09:18→20:25)
[2016-06-17] MEDS: NYSTATIN 100,000 U/GM PWD 15 GM BTL TOPICAL SCH ×2 (09:18→20:26)
[2016-06-17] MEDS ORDERED: ICU - MAGNESIUM SULFATE 2 GM/NS 100 ML IV PRN ×2 (10:30)
[2016-06-17] MEDS ORDERED: ICU - CALL ORDERING PHYSICIAN PRN (10:30)
[2016-06-17] MEDS ORDERED: ICU - MAGNESIUM SULFATE 4 GM/NS 100 ML IV PRN ×2 (10:30)
[2016-06-17] MEDS ORDERED: ICU - MAGNESIUM OXIDE 400 MG TAB PO PRN (10:30)
[2016-06-17] MEDS ORDERED: ICU - D/C ICU ELECTROLYTE ORDERS PRN (10:30)
[2016-06-17] MEDS ORDERED: ICU - SODIUM PHOSPHATE 30 MMOL/NS 250 ML IV PRN ×2 (10:30)
[2016-06-17] MEDS ORDERED: ICU - POTASSIUM PHOSPHATE MONOBASIC 500 MG TAB PO PRN (10:30)
[2016-06-17] MEDS ORDERED: ICU - POTASSIUM CHLORIDE/AQUEOUS SOLN 20 MEQ/100 ML IVPB IV PRN (10:30)
[2016-06-17] MEDS ORDERED: ICU - POTASSIUM PHOSPHATE 30 MMOL/NS 250 ML IV PRN ×2 (10:30)
[2016-06-17] MEDS ORDERED: POTASSIUM CHLORIDE 25 MEQ EFFERVESCENT TAB PO PRN (10:30)
--- NOTE | 2016-06-17 10:39 | HHI.CCPN ---
Subjective Remarks/Hospital Course Patient is a 50 years old obese male with past medical history significant for undiagnosed sleep apnea, super morbid obesity, type 2 diabetes was brought to the emergency department on 03/24/16 after feeling light headed and dizzy. On presentation here was found to be hypoxemic and ABG showed severe hypoxemia and hypercarbia. For a recent driving physical he was diagnosed with low oxygen saturations. Patient's oxygen saturation the ED was in the low 80s, which was confirmed on ABG with a oxygen saturation of 78% and PO2 of 46. CTA negative for PE. Patient was initiated on BiPAP therapy with consult to pulmonary Dr. Crane. His oxygenation improved but he continued to be hypercapnic. Today a.m. on nasal cannula his pH was 7.26 and PCO2 was increased at 99, patient was somnolent was placed back on BiPAP and repeat ABG at noon showed pH 7.26 PCO2 98 and pO2 70. This was on 16 BiPAP with FiO2 50%. Critical care was consulted. On my evaluation patient is somnolent but wakes up easily. I reduced the PEEP on BiPAP from 12-7 to facilitate better ventilation. A repeat ANG showed only minimal improvement, so decision made to intubate patient. Glidescope with #4 blade was used. Only propofol was used for induction. Initially I had a Grade 1-2 view, but I was unable to pass tube through the vocal cord to trachea in two attempts. Tube slipped out of Laryngeal opening both times. Dr Garrett intubated patient after NM paralysis with succinylcholine. Post intubation ABG showed improvement in hypercapnia and oxygenation. 03/27/16: Patient remains intubated heavily sedated with propofol and fentanyl. Remained severely hypoxemic on 100% FiO2, PEEP12, chest x-ray shows bibasilar infiltrates. Flagyl added. We'll give 1 dose of vancomycin-Adjust antibiotics according to cultures. Patient super morbid obesity may prevent Prone therapy 03/28: Remains hypoxic but ABG shows marginal improvement in oxygenation. WBC increasing 20.1 today. Start vancomycin scheduled. 03/29: Oxygenation is slightly improved. FiO2 reduced to 50% today. Chest x- ray remains unchanged. On sedation hold patient does wake up and follow commands. WBC count remains at 20 03/30 No acute events overnight. Sedated with Diprivan and Fentanyl. Had T: 100.1 at 4 am. WBC trending down 15.9 today from 20. 03/31 Patient remains sedated with Diprivan, Fentanyl and intubated. Tmax 100.1. Patient required increase O2 overnight now on ACV with PEEP: 12 and FIO2 70%. 04/01: Tmax 99.7. No bowel movement since admission. Patient has bowel sounds. Arousable on the ventilator. We'll attempt prone the patient paralyzed to increase oxygenation status. 04/02: MAXIMUM TEMPERATURE 100.9. Currently 97.7. 5 10 cc stools overnight. Placed on Roto prone yesterday. Saturations currently 94% on Flolan. Diuresed overnight. Creatinine still within normal limits. 04/03: Tmax 101. Currently 99.1. Positive BM. Did not tolerate not being unprone this AM. Saturations much improved prone. Tolerating tube feeding. 04/04: Tmax 100.8. Currently 98.8. +2 L past 24 hours. Attempt to on prone today. Positive BM. C. difficile negative. Remains paralyzed. 04/05: Remains sedated, orally intubated on neuromuscular blockade on mechanical ventilation. Remains on Rota prone bed. On insulin drip. 04/06: Remains sedated, orally intubated on neuromuscular blockade, on mechanical ventilation. Remains on Rota prone bed. Insulin drip continues. 04/07 Patient remains on Rotoprone bed sedated with Diprivan, Versed, Fentanyl in addition patient is on Nimbex. Afebrile. On Insulin drip 5u/hr. 04/08 Patient remains sedated and intubated and on Nimbex. Off insulin drip. On PRVC/AC with RR 15, TV 550, IT: 1.65, PEEP: 15 and FIO2 100%. T: 100.2 at 4 am. 04/09 Patient is sedated, intubated and remains on neuromuscular blockade. Vent setting unchanged. afebrile. 04/10 Patient remains sedated and intubated and on Nimbex. On PRVC/AC, RR 15, TV 500, PEEP: 15, FIO2 90%, IT:1.65, on Flolan drip. Remains on Rotoprone bed. 04/11 minimal improvement in oxygenation, FiO2 now at 75 - continue to improve oxygenation, worsening CXR 04/13/10 continue to improve oxygenation DC'd prone position last night 04/14- improving oxygenation, Nimbex discontinued as well as prone position 04/16 Patient is sedated with Versed and Fentanyl and intubated. Off rotoprone bed. On PRVC/AC RR 15, TV 550, IT 1.65, PEEP:15, FIO2 50%. 04/17 Patient remains sedated with Versed and Fentanyl. Afebrile, tolerating tube feeds 04/18 No acute events overnight Sedated and intubated. Afebrile. On PRVC/AC RR 15 , TV 550, IT 1.65, PEEP:15, FIO2 60% 04/19: Spiking fever up to 101, pancultured and 1 dose of vancomycin given by ID. On weaning doses of Flolan. FiO2 down to 50% I have reduced PEEP to 14. Remains critically ill 04/20: No fever. Sputum cx with Staph -S pending. Fio2 50% PEEP remains at 14. TV increased to 650 to improve lung recruitment. On weaning dose of Flolan-DC after current bag 04/21:Afebrile. Hyponatremia resolving, the patient will be placed on free water flushes. 04/22:The patient had an episode of acute desaturation requiring FiO2 increased to 90%. Stat chest x-ray stat ABG aggressive pulmonary toileting and suctioning , resolution of symptoms FiO2 now 55%. ABGs within normal limits. 04/23: Tmax 99.5. Currently afebrile. O2 sat 50%. PEEP down to 13. One small bowel movement overnight. 04/24: Currently afebrile. O2 sat 45%. PEEP to 12. One BM. Tolerating tube feeds. 04/25: Afebrile. PEEP down to 11. Positive BM. Tolerating tube feeds. Awake on the ventilator with eyes open. 04/26: Afebrile. PEEP down to 10. Time to feeding. Awake and alert eyes open. 04/27: Suspected fever overnight. One bowel movement documented. Will decreased PEEP to 9. Awake and alert and follows commands. 04/28: Tmax 99.3. Currently afebrile. FiO2 increased to 70%. PEEP to 10. Awake and does follow commands. Positive BM 4 yesterday. 04/29: FiO2 down to 55%. Peak systolic 10. Awake and does follow commands. Positive BM 1 yesterday. Tolerating tube feeding. 04/30: No acute issues overnight . The patient continues to be sedated with plans for tracheostomy in the OR today. The patient follows commands when on sedation vacation. 05/01: Postop day 1 post tracheostomy tube placement, no issues overnight. Plan for CPAP trials today. 05/02: Afebrile. The patient continues on CPAP trial 15/5 , FiO2 .45%. The patient alert and responsive this a.m., continues on Precedex and fentanyl infusion. By mouth narcotics, and fentanyl patch instituted to transition all fentanyl infusion. PEG tube placement pending. 05/03: The patient's fentanyl infusion was discontinued last evening. Multimodal analgesia initiated. Patient continues on Precedex infusion, GCS 14 T. Plans today for PEG placement later on this afternoon. No acute issues overnight. 05/04 Tmax 101.0. The patient's PICC line was removed, peripheral IVs initiated. Blood, urine and sputum cultures obtained. Methylprednisolone continues to be weaned currently at 20 mg daily. Plan for weaning of Precedex infusion off today. Seroquel 25 mg twice a day added to medication regimen. The patient continues on CPAP trials. 05/05: Tmax 99.1. Overnight the patient was maintained on CPAP trials of 15/5/40% , the patient's respiratory rate continues to be low 30s, tolerated well. The sake early this a.m. the patient was noticed to have a episode of nausea and vomiting Zofran instituted. The patient continues on scheduled Reglan TID. Blood , sputum and urine cultures were obtained yesterday secondary to elevated temperature awaiting results. 05/06: The patient remains on T piece greater than 48 hours. The patient is alert oriented and cooperative. Trach site without erythema or drainage. Patient was noticed over the last 12 hours to have multiple bowel movements or in the night. Will D/C MiraLAX, lactulose and Reglan will be discontinued. Plan for possible transfer to LTAC facility. 05/07 no acute issues overnight tolerating TPs 05/27 shortly after midnight rapid response team was called due to patient's respiratory distress and hypercarbic respiratory failure with hypoxemia and cyanosis 05/27: Tracheostomy was exchanged this morning to a #6 Shiley fenestrated cuffed. Currently on PRVC with PEEP of 10. Saturations are much improved. Awake and alert and following commands. Requesting diet. 05/28: Awake and alert. On mechanical ventilation via tracheostomy. Following commands. 05/29: Awake and alert. On mechanical ventilation via tracheostomy. Tolerating PO diet. Following commands. 05/30: Awake and alert. On mechanical ventilation via tracheostomy. Tolerating by mouth diet. Following commands. 05/31: Remains on mechanical ventilation via tracheostomy. Tolerating C Pap/ pressure support. Following commands. Tolerating by mouth diet. 06/01: Remains on mechanical ventilation via tracheostomy. Awake and alert. Tolerated C Pap and pressure support however gets extremely tachypneic on dropping pressure-support to +5. Tolerating by mouth diet 06/02: Tmax 99.5. Currently 99. Currently on T piece trial. Condom catheter placed. Subjective 06/03: Currently T piece trial. Saturations around 98 %. Appears comfortable. He is in no acute distress. No issues overnight 06/12: Hypoxemic respiratory failure and difficulty bag ventilating. Rushed to ICU with acceptable sats and immediately intubated through the mouth. Trach tube removed. Good ventilation immediately restored. CXR with diffuse pulmonary edema - question negative pressure. 06/13: Persistent diffuse infiltrates, MSSA sputum, start abx. Hydrate for oliguria. Convert to APRV for recruitment. 06/14: CXR has cleared and well expanded on APRV. Will work to convert to conventional and revise trach. 06/15: CXR clear. MSSA colonized but fever persists. Treat. Need to revise trach. 06/16: Breathing comfortably on SBT /. Will work to extubation but will probably need a #8 trach replaced. 06/17: Awake and alert, remains orally intubated on mechanical ventilation. Daily C Pap trials. We will discuss with Dr. Rosenberg regarding replacing tracheostomy in OR. Objective Vital Signs Date Time Temp Pulse Resp B/P Pulse Ox O2 Delivery O2 Flow Rate FiO2 06/17/16 09:00 96 40 06/17/16 07:00 Mechanical Ventilator 06/17/16 04:00 101.3 91 21 104/61 Intake and Output 06/16/16 06/16/16 06/17/16 08:00 16:00 00:00 Intake Total 1505 ml 1699 ml 2362 ml Output Total 600 ml 700 ml 1700 ml Balance 905 ml 999 ml 662 ml Result Diagram: 06/17/16 0533 Imaging Last Impressions Chest X-Ray 05/28/16 0600 Signed Impressions: Service Date/Time: Saturday, May 28, 2016 04:49 - CONCLUSION: Unchanged bibasilar densities. Wale Dalal MD Liver Ultrasound 05/09/16 0000 Signed Impressions: Service Date/Time: Monday, May 09, 2016 22:28 - CONCLUSION: 1. Enlarged, fatty liver. 2. Small stones or tumefactive sludge adherent to one of the gallbladder arcos. 3. Splenomegaly. 4. Pancreas is obscured by overlying bowel gas and patient's body habitus. Arthur Kennedy MD Abdomen X-Ray 05/01/16 0000 Signed Impressions: Service Date/Time: Sunday, May 01, 2016 17:28 - CONCLUSION: No evidence of obstruction. Feeding tube overlies the distal stomach, May have to be advanced slightly to reach the duodenum. Nick Jon MD Chest CT 03/28/16 0836 Signed Impressions: Service Date/Time: Monday, March 28, 2016 09:57 - CONCLUSION: Development areas of air bronchograms and consolidation more prominent in the right and left posterior basilar segments of the lower lobes. ET tube above the chanelle. Bernard Hartman MD CT Angiography 03/24/16 1121 Signed Impressions: Service Date/Time: Thursday, March 24, 2016 12:47 - CONCLUSION: 1. There is respiratory motion artifact but no PE is identified through most of the segmental level pulmonary arteries. 2. Mildly enlarged main pulmonary artery may indicate pulmonary arterial hypertension. 3. 11 mm left lower lobe noncalcified pulmonary nodule. Suggest correlation with any prior imaging studies that could confirm longer-term stability. If none are available consider short-term followup noncontrast chest CT in approximately 3 months. Ubaldo Rodas MD Objective Remarks GENERAL: 50-year-old morbidly obese male SKIN: Integrity intact. Warm and dry. HEAD: Atraumatic. Normocephalic. EYES: MARITZA, 2 millimeters bilaterally. ENT: Tracheostomy removed, site draining clear material. CARDIOVASCULAR: Distant heart sounds, tachycardia. RRR. S1, S2. No S4. Without murmur RESPIRATORY: On mechanical ventilation via tracheostomy No crackles, no wheezes. Diminished breath sounds due to body habitus. GASTROINTESTINAL: Abdomen soft, obese, nontender. Severe central obesity, PEG tube site with thick yellowish drainage MUSCULOSKELETAL: Extremities with trace + nonpitting bilateral lower extremity edema. NEUROLOGICAL: Anxious, opens eyes, tracks.Moves 4 to command, tracks with eyes, nods head. Procedures 04/30/16 - tracheostomy by Dr. Reyes 05/03/16 - EGD with PEG placement by Dr. 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 Ventilator bundle Bronchial dilator therapy every 6 hours With Atrovent nebs every 2 hours when necessary dyspnea Pulmonary Dr. Perry Re-intubation through mouth. Revise trach-Will D/W Dr. Rosenberg CV: Monitor HR and BP keep MAP>65mmHg 2-D echo 03/26 EF 60%. No regional wall motion abnormality. Mild MR/TR. /FEN: Monitor renal function, I/O's, electrolytes replacement per protocol. GI: Constipation-resolved Moderate protein calorie malnutrition Nausea and vomiting Continue oral diet starting 05/29 Protonix 40mg daily Senna and Colace twice a day PEG tube placement- 05/03 Zofran 4 mg every 6 hours when necessary ID: Staph aureus pneumonia - resolved Pertinent culture 05/27 - sputum - MSSA 04/27 - pansensitive staph aureus 04/27 blood cultures 2 negative 04/25 - urine -no growth 04/19 - blood cultures 2 out of 4 - staph aureus 04/19 - sputum - staph aureus 04/08 - sputum - staph aureus 04/03 - sputum - staph aureus 03/30 - sputum- -staph aureus 03/27 - sputum - staph aureus 03/26 - blood - staph hominis On vancomycin 2 g IV every 12 are since 04/19 - 04/29 Azactam 04/27 through 04/29 Heme: Leukocytosis Monitor CBC/coags Monitor WBC labs every 3 days, unless clinically indicated. Repeat today Endo: Diabetes mellitus SSI for glycemic control with sliding scale insulin every 4 hours Levemir insulin 5 U hs, q6h SSI MSK Morbid obesity Weight loss encouraged DVT, GI prophylaxis -Bilateral lower extremity SCDs. IV Protonix 40 mg daily. Lovenox 40 mg sq BID LINES: -New SCV Left CVL placed 06/12 Overall impression: He became critically ill with diffuse pulmonary edema and hypoxemic respiratory failure; negative pressure pulmonary edema. Now improved gas exchange on APRV. It will be difficult to extubate him, will need to revise trach. Converted to conventional ventilation with PEEP 1, now tolerating SBT PEEP 10. Critical Care time excluding procedures 35 mins Aditya Monge MD Jun 17, 2016 10:39
--- NOTE | 2016-06-17 12:01 | HHI.PR ---
Subjective Remarks acute respiratory failure back on vent. support ALERT TODAY , FOLLOWS SIMPLE COMMANDS Objective Vital Signs Date Time Temp Pulse Resp B/P Pulse Ox O2 Delivery O2 Flow Rate FiO2 06/17/16 11:56 93 40 06/17/16 09:00 96 40 06/17/16 07:00 97 Mechanical Ventilator 40 06/17/16 05:23 94 40 06/17/16 04:00 101.3 91 21 104/61 97 06/17/16 04:00 40 06/17/16 00:26 97 40 06/17/16 00:00 40 06/17/16 00:00 100.6 85 23 117/71 98 06/16/16 21:42 97 40 06/16/16 21:00 40 06/16/16 20:00 40 06/16/16 20:00 99.7 78 21 105/64 98 06/16/16 19:00 93 Mechanical Ventilator 40 06/16/16 16:00 40 06/16/16 16:00 100.0 79 24 103/67 98 06/16/16 15:42 100 40 I/O 06/16/16 06/16/16 06/16/16 06/17/16 06/17/16 06/17/16 07:00 15:00 23:00 07:00 15:00 23:00 Intake Total 1505 ml 1699 ml 2362 ml 1747 ml Output Total 600 ml 700 ml 1700 ml 2150 ml Balance 905 ml 999 ml 662 ml -403 ml IV Total 1305 ml 1148 ml 1942 ml 1370 ml Tube Feeding 140 ml 231 ml 300 ml 257 ml Tube Irrigant 60 ml 320 ml 120 ml 120 ml Output Urine Total 600 ml 700 ml 1700 ml 2150 ml # Bowel Movements 0 1 0 Result Diagram: 06/17/16 0533 Objective Remarks GENERAL: SKIN: Warm and dry.on vent support HEAD: Atraumatic. Normocephalic. EYES: Pupils equal and round. No scleral icterus. No injection or drainage. ENT: No nasal bleeding or discharge. Mucous membranes pink and moist. NECK: Trachea midline. No JVD. CARDIOVASCULAR: Regular rate and rhythm. RESPIRATORY: No accessory muscle use. Clear to auscultation. Breath sounds equal bilaterally. GASTROINTESTINAL: Abdomen soft, non-tender, nondistended. Hepatic and splenic margins not palpable. MUSCULOSKELETAL: Extremities without clubbing, cyanosis, or edema. No obvious deformities. NEUROLOGICAL: Awake and alert. No obvious cranial nerve deficits. Motor grossly within normal limits. Five out of 5 muscle strength in the arms and legs. Normal speech. PSYCHIATRIC: Appropriate mood and affect; insight and judgment normal. Assessment and Plan Assessment and Plan respiratory failure morbid obesity plan vent support pulm toilet prognosis guarded Orlando Perry MD Jun 17, 2016 12:01
[2016-06-17] MEDS: LEVOFLOXACIN 750 MG PREMIX INJ 150 ML IV SCH (12:37)
[2016-06-17] MEDS: VANCOMYCIN INJ 1,750 MG in SODIUM CHLORID 0.9% 500 ML INJ 500 ML IV SCH (13:49)
[2016-06-17] MEDS: ICU - POTASSIUM CHLORIDE/AQUEOUS SOLN 40 MEQ/100 ML IVPB IV PRN ×2 (13:50→17:40)
[2016-06-17] MEDS: INSULIN DETEMIR 100 UNITS/ML VIAL SQ SCH (20:25)
[2016-06-18] VITALS (15 sets, daily range): BP systolic 93–118; BP diastolic 54–68; PULSE 78–92; RESP 20–26; TEMP 99.1–100.6; O2SAT 92–98
[2016-06-18] MEDS: POTASSIUM CHLORIDE INJ 10 MEQ in SODIUM CHLOR 0.9% 1000 ML INJ 1,000 ML IV SCH ×2 (01:38→15:27)
[2016-06-18] MEDS: ARTIFICIAL TEARS OPTH SOLN 15 ML BTL EACH EYE SCH ×6 (02:00→19:41)
[2016-06-18] MEDS: VANCOMYCIN INJ 1,750 MG in SODIUM CHLORID 0.9% 500 ML INJ 500 ML IV SCH ×2 (02:00→15:13)
[2016-06-18] MEDS: AZTREONAM INJ 1,000 MG in SODIUM CHLORIDE 0.9% INJ 100 ML IV SCH ×3 (04:44→19:39)
[2016-06-18] MEDS: ENOXAPARIN SODIUM 40 MG/0.4 ML SYRINGE SQ SCH ×2 (04:44→17:27)
[2016-06-18] MEDS: INSULIN ASPART SUPPLEMENTAL SCALE SQ SCH ×4 (07:00→20:04)
[2016-06-18] MEDS: CHLORHEXIDINE 0.12% (ORAL KIT) 15 ML CUP MT SCH ×2 (08:33→19:39)
[2016-06-18] MEDS: PANTOPRAZOLE SOD 40 MG DELAYED RELEASE TAB PO SCH (08:33)
[2016-06-18] MEDS: PREGABALIN 25 MG CAP PO SCH (08:33)
[2016-06-18] MEDS: QUEtiapine FUMARATE 25 MG TAB PO SCH ×2 (08:34→19:40)
[2016-06-18] MEDS: LACTOBACILLUS ACIDOPHILUS TAB PO SCH ×3 (08:34→17:27)
[2016-06-18] MEDS: ACETAMINOPHEN/HYDROcodone 325 MG/5 MG TAB PO SCH ×2 (08:34→19:40)
[2016-06-18] MEDS: BACLOFEN 10 MG TAB PO SCH ×2 (08:34→19:39)
[2016-06-18] MEDS: NYSTATIN 100,000 U/GM PWD 15 GM BTL TOPICAL SCH ×2 (08:35→19:41)
[2016-06-18] MEDS: DOCUSATE SODIUM 100 MG/10 ML UDC PO SCH ×2 (08:35→19:39)
[2016-06-18] MEDS: POLYETHYLENE GLYCOL 17 GM PKG PO SCH ×2 (08:35→19:39)
[2016-06-18] MEDS: SILVER SULFADIAZINE 1% CR 400 GM JAR TOPICAL SCH (08:35)
[2016-06-18] MEDS: SENNOSIDES SYRUP 8.8 MG/5 ML CUP PO/TUBE SCH ×2 (08:35→19:40)
[2016-06-18] MEDS: BETAMETHASONE/CLOTRIMAZOLE CREAM 15 GM TOPICAL SCH ×2 (08:35→19:41)
[2016-06-18] MEDS: BENEPROTEIN POWDER 1 PACK G-TUBE SCH ×3 (08:36→17:27)
[2016-06-18] MEDS: SODIUM CHLORIDE 0.9% FLUSH 5 ML FLUSH IVF SCH (09:00)
[2016-06-18 09:14] LABS: AUTOMATED NEUTROPHIL # 11.2 TH/MM3 (1.8-7.7); BASOPHIL # 0.1 TH/MM3 (0-0.2); EOSINOPHIL # 0.7 TH/MM3 (0-0.4); EOSINOPHIL % 4.7 % (0.0-4.0); HEMATOCRIT 27.7 % (39.0-51.0); LYMPH % 13.3 % (9.0-44.0); MEAN CELL VOLUME 84.8 FL (80.0-100.0); MEAN CORPUSCULAR HEMOGLOBIN 27.9 PG (27.0-34.0); MEAN CORPUSCULAR HGB CONC 32.9 % (32.0-36.0); MONO % 5.9 % (0.0-8.0); NEUT % 75.1 % (16.0-70.0); PLATELET COUNT 370 TH/MM3 (150-450); RED BLOOD COUNT 3.26 MIL/MM3 (4.50-5.90); RED CELL DISTRIBUTION WIDTH 18.1 % (11.6-17.2); WHITE BLOOD COUNT 14.8 TH/MM3 (4.0-11.0)
[2016-06-18 09:15] LABS: HEMO FLAGS AUTO DIFF
[2016-06-18 09:35] LABS: BICARBONATE 30.3 MEQ/L (21.0-32.0); POTASSIUM 3.7 MEQ/L (3.5-5.1)
[2016-06-18] MEDS: POTASSIUM CHLORIDE 10 MEQ CONTROLLED RELEASE TAB PO SCH (09:39)
[2016-06-18 09:49] LABS: BANDS 4 % (0-6); EOSINOPHILS 3 % (0-4); NEUTROPHIL # MANUAL DIFF 11.7 TH/MM3 (1.8-7.7); POLYS (SEG NEUTROPHILS) 75 % (16-70); WBC DIFF SAMPLE 100
[2016-06-18 09:50] LABS: PLATELET ESTIMATE SMEAR NORMAL (NORMAL); PLATELET MORPHOLOGY NORMAL (NORMAL); SCAN/DIFF FINAL DIFF MANUAL
--- NOTE | 2016-06-18 10:14 | HHI.IDPN ---
Subjective Subjective Remarks Notes reviewed Febrile this weekend BC negative Sputum with PSAE and Staph aureus no susceptibility result yet On the vent Denies SOB No abdominal pain BP ok WBC stable Patient is a 50-year-old male admitted to the hospital for shortness of breath. There is a history of possible sleep apnea, and he has morbid obesity as well as diabetes. Patient . remained on the vent and he underwent tracheostomy May 01, 2016. He was treated several times for MSSA pneumonia. He was being followed from the ID standpoint, and we signed off the case on May 08. At that time he had completed a course of antibiotics for his pneumonia. He was also doing well and tolerating T piece, and has been off the respirator. Antibiotics Azactam Vancomycin Levaquin Lines [facility] [place] [facility] [place]12 Past Medical History Reviewed Allergies: Coded Allergies: Penicillin (Verified Allergy, Severe, Swelling, 03/24/16) Tetanus Toxoid (Verified Allergy, Unknown, Swelling, 03/24/16) Objective . Vital Signs Date Time Temp Pulse Resp B/P Pulse Ox O2 Delivery O2 Flow Rate FiO2 06/18/16 07:36 97 40 06/18/16 07:00 97 Mechanical Ventilator 40 06/18/16 04:18 97 40 06/18/16 04:00 40 06/18/16 04:00 100.6 90 26 113/63 98 06/18/16 02:53 97 40 06/18/16 00:00 99.7 80 26 101/62 97 06/18/16 00:00 40 06/17/16 20:49 99 40 06/17/16 20:00 99.3 81 27 99/70 95 06/17/16 20:00 40 06/17/16 19:00 96 Mechanical Ventilator 40 06/17/16 16:37 96 40 06/17/16 16:00 100.0 84 26 108/64 96 06/17/16 16:00 40 06/17/16 12:00 99.7 81 22 98/58 93 06/17/16 12:00 40 06/17/16 11:56 93 40 06/17/16 06/17/16 06/18/16 15:00 23:00 07:00 Intake Total 1549 ml 2231 ml 2417 ml Output Total 1800 ml 1155 ml 1975 ml Balance -251 ml 1076 ml 442 ml IV Total 976 ml 1728 ml 2024 ml Tube Feeding 333 ml 303 ml 393 ml Tube Irrigant 240 ml 200 ml Output Urine Total 1800 ml 1155 ml 1975 ml # Bowel Movements 2 0 . Laboratory Tests Test 06/18/16 08:50 White Blood Count 14.8 TH/MM3 Red Blood Count 3.26 MIL/MM3 Hemoglobin 9.1 GM/DL Hematocrit 27.7 % Mean Corpuscular Volume 84.8 FL Mean Corpuscular Hemoglobin 27.9 PG Mean Corpuscular Hemoglobin 32.9 % Concent Red Cell Distribution Width 18.1 % Platelet Count 370 TH/MM3 Mean Platelet Volume 8.0 FL Neutrophils (%) (Auto) 75.1 % Lymphocytes (%) (Auto) 13.3 % Monocytes (%) (Auto) 5.9 % Eosinophils (%) (Auto) 4.7 % Basophils (%) (Auto) 1.0 % Neutrophils # (Auto) 11.2 TH/MM3 Lymphocytes # (Auto) 2.0 TH/MM3 Monocytes # (Auto) 0.9 TH/MM3 Eosinophils # (Auto) 0.7 TH/MM3 Basophils # (Auto) 0.1 TH/MM3 CBC Comment AUTO DIFF Differential Total Cells 100 Counted Neutrophils % (Manual) 75 % Band Neutrophils % 4 % Lymphocytes % 15 % Monocytes % 3 % Eosinophils % 3 % Neutrophils # (Manual) 11.7 TH/MM3 Differential Comment FINAL DIFF MANUAL Platelet Estimate NORMAL Platelet Morphology Comment NORMAL Laboratory Tests Test 06/17/16 06/18/16 05:33 08:50 Sodium Level 139 MEQ/L 139 MEQ/L Potassium Level 3.2 MEQ/L 3.7 MEQ/L Chloride Level 103 MEQ/L 102 MEQ/L Carbon Dioxide Level 28.8 MEQ/L 30.3 MEQ/L Anion Gap 7 MEQ/L 7 MEQ/L Blood Urea Nitrogen 3 MG/DL 4 MG/DL Creatinine 0.37 MG/DL 0.40 MG/DL Estimat Glomerular Filtration 249 ML/MIN 228 ML/MIN Rate Random Glucose 126 MG/DL 115 MG/DL Calcium Level 8.2 MG/DL 8.5 MG/DL Microbiology Date/Time Procedure Status Source Growth 06/15/16 14:52 Aerobic Blood Culture - Preliminary Resulted Blood Peripheral NO GROWTH IN 2 DAYS 06/15/16 14:52 Anaerobic Blood Culture - Preliminary Resulted Blood Peripheral NO GROWTH IN 2 DAYS 06/15/16 14:59 Aerobic Blood Culture - Preliminary Resulted Blood Peripheral NO GROWTH IN 2 DAYS 06/15/16 14:59 Anaerobic Blood Culture - Preliminary Resulted Blood Peripheral NO GROWTH IN 2 DAYS 06/15/16 16:35 Gram Stain - Final Resulted Sputum Endotracheal 06/15/16 16:35 Sputum Culture - Preliminary Resulted Pseudomonas Aeruginosa Staphylococcus Aureus Imaging Chest X-Ray 06/14/16 0400 Signed Impressions: Service Date/Time: June 03:48 - CONCLUSION: Significant improvement of the lungs with minimal residual disease the right lower lobe. Wale Dalal MD Abdomen X-Ray 06/12/16 0000 Signed Impressions: Service Date/Time: Sunday, June 12, 2016 17:57 - CONCLUSION: 1. Nasogastric tube in place with the tip projected over the distal stomach. 2. Unremarkable bowel gas pattern. Genaro Garcia MD Lower Extremity Ultrasound 06/04/16 0000 Signed Impressions: Service Date/Time: Saturday, June 04, 2016 14:54 - CONCLUSION: 1. No DVT identified. Dc Barton MD Liver Ultrasound 05/09/16 0000 Signed Impressions: Service Date/Time: Monday, May 09, 2016 22:28 - CONCLUSION: 1. Enlarged, fatty liver. 2. Small stones or tumefactive sludge adherent to one of the gallbladder arcos. 3. Splenomegaly. 4. Pancreas is obscured by overlying bowel gas and patient's body habitus. Arthur Kennedy MD Chest CT 03/28/16 0836 Signed Impressions: Service Date/Time: Monday, March 28, 2016 09:57 - CONCLUSION: Development areas of air bronchograms and consolidation more prominent in the right and left posterior basilar segments of the lower lobes. ET tube above the chanelle. Bernard Hartman MD CT Angiography 03/24/16 1121 Signed Impressions: Service Date/Time: Thursday, March 24, 2016 12:47 - CONCLUSION: 1. There is respiratory motion artifact but no PE is identified through most of the segmental level pulmonary arteries. 2. Mildly enlarged main pulmonary artery may indicate pulmonary arterial hypertension. 3. 11 mm left lower lobe noncalcified pulmonary nodule. Suggest correlation with any prior imaging studies that could confirm longer-term stability. If none are available consider short-term followup noncontrast chest CT in approximately 3 months. Ubaldo Rodas MD Chest X-Ray 05/03/16 0600 Signed Impressions: Service Date/Time: May 04:08 - CONCLUSION: 1. Subsegmental airspace disease in the lungs. Cardiomegaly. Kyle Lorenzo MD Abdomen X-Ray 05/01/16 0000 Signed Impressions: Service Date/Time: Sunday, May 01, 2016 17:28 - CONCLUSION: No evidence of obstruction. Feeding tube overlies the distal stomach, May have to be advanced slightly to reach the duodenum. Nick Jon MD Chest CT 03/28/16 0836 Signed Impressions: Service Date/Time: Monday, March 28, 2016 09:57 - CONCLUSION: Development areas of air bronchograms and consolidation more prominent in the right and left posterior basilar segments of the lower lobes. ET tube above the chanelle. Bernard Hartman MD CT Angiography 03/24/16 1121 Signed Impressions: Service Date/Time: Thursday, March 24, 2016 12:47 - CONCLUSION: 1. There is respiratory motion artifact but no PE is identified through most of the segmental level pulmonary arteries. 2. Mildly enlarged main pulmonary artery may indicate pulmonary arterial hypertension. 3. 11 mm left lower lobe noncalcified pulmonary nodule. Suggest correlation with any prior imaging studies that could confirm longer-term stability. If none are available consider short-term followup noncontrast chest CT in approximately 3 months. Ubaldo Rodas MD Physical Exam GENERAL: Awake and alert, obese, on the vent, not in distress, he is following commands. SKIN: Warm and moist. No generalized rash or ecchymosis. HEENT: Gracey conjunctivae, no petechia or hemorrhage. No scleral icterus. No injection. No nasal drainage. He is orally intubated, has moist oral mucosa. NECK: Large and thick. Previous trach still open with some yellow drainage. No tenderness. CHEST: Coarse BS eufemia, equal breath sounds, decreased at the bases CARDIAC: regular rate and rhythm, no murmur ABDOMEN: soft, obese, (+) BS and normoactive, has R sided tenderness, no guarding or rebound. : Becker in place, urine looks clear MUSCULOSKELETAL: Extremities without clubbing, cyanosis. Mild edema NEUROLOGICAL: Awake and interacting. No facial asymmetry, LUCRECIA, full EOM. Moves all extremities. No Babinski PSYCH: Awake, cooperative LINE: LSC TLC with no evidence of infection : Becker in place, urine looks clear Assessment & Plan Remarks IMPRESSION Recurrent respiratory failure due to pulmonary edema - CXR better Fevers, etiology? - possible due to pulmonary, has PSAE and Staph aureus in sputum - he is adequately covered with Abx, but still with low grade temps Leukocytosis, persistent Pneumonia, C/S MSSA, S/P Rx x 2 - last sputum 05/27 with MSSA JACOB Morbid obesity Allergy to PCN, swelling RECOMMENDATION Follow C/S Repeat BC if temps up Monitor temps Monitor progress Follow C/S Continue Vanco and Azactam Continue Levaquin Trach being discussed Elisha Painter MD Jun 18, 2016 10:14
--- NOTE | 2016-06-18 12:10 | HHI.CCPN ---
Subjective Remarks/Hospital Course Patient is a 50 years old obese male with past medical history significant for undiagnosed sleep apnea, super morbid obesity, type 2 diabetes was brought to the emergency department on 03/24/16 after feeling light headed and dizzy. On presentation here was found to be hypoxemic and ABG showed severe hypoxemia and hypercarbia. For a recent driving physical he was diagnosed with low oxygen saturations. Patient's oxygen saturation the ED was in the low 80s, which was confirmed on ABG with a oxygen saturation of 78% and PO2 of 46. CTA negative for PE. Patient was initiated on BiPAP therapy with consult to pulmonary Dr. Crane. His oxygenation improved but he continued to be hypercapnic. Today a.m. on nasal cannula his pH was 7.26 and PCO2 was increased at 99, patient was somnolent was placed back on BiPAP and repeat ABG at noon showed pH 7.26 PCO2 98 and pO2 70. This was on 16 BiPAP with FiO2 50%. Critical care was consulted. On my evaluation patient is somnolent but wakes up easily. I reduced the PEEP on BiPAP from 12-7 to facilitate better ventilation. A repeat ANG showed only minimal improvement, so decision made to intubate patient. Glidescope with #4 blade was used. Only propofol was used for induction. Initially I had a Grade 1-2 view, but I was unable to pass tube through the vocal cord to trachea in two attempts. Tube slipped out of Laryngeal opening both times. Dr Garrett intubated patient after NM paralysis with succinylcholine. Post intubation ABG showed improvement in hypercapnia and oxygenation. 03/27/16: Patient remains intubated heavily sedated with propofol and fentanyl. Remained severely hypoxemic on 100% FiO2, PEEP12, chest x-ray shows bibasilar infiltrates. Flagyl added. We'll give 1 dose of vancomycin-Adjust antibiotics according to cultures. Patient super morbid obesity may prevent Prone therapy 03/28: Remains hypoxic but ABG shows marginal improvement in oxygenation. WBC increasing 20.1 today. Start vancomycin scheduled. 03/29: Oxygenation is slightly improved. FiO2 reduced to 50% today. Chest x- ray remains unchanged. On sedation hold patient does wake up and follow commands. WBC count remains at 20 03/30 No acute events overnight. Sedated with Diprivan and Fentanyl. Had T: 100.1 at 4 am. WBC trending down 15.9 today from 20. 03/31 Patient remains sedated with Diprivan, Fentanyl and intubated. Tmax 100.1. Patient required increase O2 overnight now on ACV with PEEP: 12 and FIO2 70%. 04/01: Tmax 99.7. No bowel movement since admission. Patient has bowel sounds. Arousable on the ventilator. We'll attempt prone the patient paralyzed to increase oxygenation status. 04/02: MAXIMUM TEMPERATURE 100.9. Currently 97.7. 5 10 cc stools overnight. Placed on Roto prone yesterday. Saturations currently 94% on Flolan. Diuresed overnight. Creatinine still within normal limits. 04/03: Tmax 101. Currently 99.1. Positive BM. Did not tolerate not being unprone this AM. Saturations much improved prone. Tolerating tube feeding. 04/04: Tmax 100.8. Currently 98.8. +2 L past 24 hours. Attempt to on prone today. Positive BM. C. difficile negative. Remains paralyzed. 04/05: Remains sedated, orally intubated on neuromuscular blockade on mechanical ventilation. Remains on Rota prone bed. On insulin drip. 04/06: Remains sedated, orally intubated on neuromuscular blockade, on mechanical ventilation. Remains on Rota prone bed. Insulin drip continues. 04/07 Patient remains on Rotoprone bed sedated with Diprivan, Versed, Fentanyl in addition patient is on Nimbex. Afebrile. On Insulin drip 5u/hr. 04/08 Patient remains sedated and intubated and on Nimbex. Off insulin drip. On PRVC/AC with RR 15, TV 550, IT: 1.65, PEEP: 15 and FIO2 100%. T: 100.2 at 4 am. 04/09 Patient is sedated, intubated and remains on neuromuscular blockade. Vent setting unchanged. afebrile. 04/10 Patient remains sedated and intubated and on Nimbex. On PRVC/AC, RR 15, TV 500, PEEP: 15, FIO2 90%, IT:1.65, on Flolan drip. Remains on Rotoprone bed. 04/11 minimal improvement in oxygenation, FiO2 now at 75 - continue to improve oxygenation, worsening CXR 04/13/10 continue to improve oxygenation DC'd prone position last night 04/14- improving oxygenation, Nimbex discontinued as well as prone position 04/16 Patient is sedated with Versed and Fentanyl and intubated. Off rotoprone bed. On PRVC/AC RR 15, TV 550, IT 1.65, PEEP:15, FIO2 50%. 04/17 Patient remains sedated with Versed and Fentanyl. Afebrile, tolerating tube feeds 04/18 No acute events overnight Sedated and intubated. Afebrile. On PRVC/AC RR 15 , TV 550, IT 1.65, PEEP:15, FIO2 60% 04/19: Spiking fever up to 101, pancultured and 1 dose of vancomycin given by ID. On weaning doses of Flolan. FiO2 down to 50% I have reduced PEEP to 14. Remains critically ill 04/20: No fever. Sputum cx with Staph -S pending. Fio2 50% PEEP remains at 14. TV increased to 650 to improve lung recruitment. On weaning dose of Flolan-DC after current bag 04/21:Afebrile. Hyponatremia resolving, the patient will be placed on free water flushes. 04/22:The patient had an episode of acute desaturation requiring FiO2 increased to 90%. Stat chest x-ray stat ABG aggressive pulmonary toileting and suctioning , resolution of symptoms FiO2 now 55%. ABGs within normal limits. 04/23: Tmax 99.5. Currently afebrile. O2 sat 50%. PEEP down to 13. One small bowel movement overnight. 04/24: Currently afebrile. O2 sat 45%. PEEP to 12. One BM. Tolerating tube feeds. 04/25: Afebrile. PEEP down to 11. Positive BM. Tolerating tube feeds. Awake on the ventilator with eyes open. 04/26: Afebrile. PEEP down to 10. Time to feeding. Awake and alert eyes open. 04/27: Suspected fever overnight. One bowel movement documented. Will decreased PEEP to 9. Awake and alert and follows commands. 04/28: Tmax 99.3. Currently afebrile. FiO2 increased to 70%. PEEP to 10. Awake and does follow commands. Positive BM 4 yesterday. 04/29: FiO2 down to 55%. Peak systolic 10. Awake and does follow commands. Positive BM 1 yesterday. Tolerating tube feeding. 04/30: No acute issues overnight . The patient continues to be sedated with plans for tracheostomy in the OR today. The patient follows commands when on sedation vacation. 05/01: Postop day 1 post tracheostomy tube placement, no issues overnight. Plan for CPAP trials today. 05/02: Afebrile. The patient continues on CPAP trial 15/5 , FiO2 .45%. The patient alert and responsive this a.m., continues on Precedex and fentanyl infusion. By mouth narcotics, and fentanyl patch instituted to transition all fentanyl infusion. PEG tube placement pending. 05/03: The patient's fentanyl infusion was discontinued last evening. Multimodal analgesia initiated. Patient continues on Precedex infusion, GCS 14 T. Plans today for PEG placement later on this afternoon. No acute issues overnight. 05/04 Tmax 101.0. The patient's PICC line was removed, peripheral IVs initiated. Blood, urine and sputum cultures obtained. Methylprednisolone continues to be weaned currently at 20 mg daily. Plan for weaning of Precedex infusion off today. Seroquel 25 mg twice a day added to medication regimen. The patient continues on CPAP trials. 05/05: Tmax 99.1. Overnight the patient was maintained on CPAP trials of 15/5/40% , the patient's respiratory rate continues to be low 30s, tolerated well. The sake early this a.m. the patient was noticed to have a episode of nausea and vomiting Zofran instituted. The patient continues on scheduled Reglan TID. Blood , sputum and urine cultures were obtained yesterday secondary to elevated temperature awaiting results. 05/06: The patient remains on T piece greater than 48 hours. The patient is alert oriented and cooperative. Trach site without erythema or drainage. Patient was noticed over the last 12 hours to have multiple bowel movements or in the night. Will D/C MiraLAX, lactulose and Reglan will be discontinued. Plan for possible transfer to LTAC facility. 05/07 no acute issues overnight tolerating TPs 05/27 shortly after midnight rapid response team was called due to patient's respiratory distress and hypercarbic respiratory failure with hypoxemia and cyanosis 05/27: Tracheostomy was exchanged this morning to a #6 Shiley fenestrated cuffed. Currently on PRVC with PEEP of 10. Saturations are much improved. Awake and alert and following commands. Requesting diet. 05/28: Awake and alert. On mechanical ventilation via tracheostomy. Following commands. 05/29: Awake and alert. On mechanical ventilation via tracheostomy. Tolerating PO diet. Following commands. 05/30: Awake and alert. On mechanical ventilation via tracheostomy. Tolerating by mouth diet. Following commands. 05/31: Remains on mechanical ventilation via tracheostomy. Tolerating C Pap/ pressure support. Following commands. Tolerating by mouth diet. 06/01: Remains on mechanical ventilation via tracheostomy. Awake and alert. Tolerated C Pap and pressure support however gets extremely tachypneic on dropping pressure-support to +5. Tolerating by mouth diet 06/02: Tmax 99.5. Currently 99. Currently on T piece trial. Condom catheter placed. Subjective 06/03: Currently T piece trial. Saturations around 98 %. Appears comfortable. He is in no acute distress. No issues overnight 06/12: Hypoxemic respiratory failure and difficulty bag ventilating. Rushed to ICU with acceptable sats and immediately intubated through the mouth. Trach tube removed. Good ventilation immediately restored. CXR with diffuse pulmonary edema - question negative pressure. 06/13: Persistent diffuse infiltrates, MSSA sputum, start abx. Hydrate for oliguria. Convert to APRV for recruitment. 06/14: CXR has cleared and well expanded on APRV. Will work to convert to conventional and revise trach. 06/15: CXR clear. MSSA colonized but fever persists. Treat. Need to revise trach. 06/16: Breathing comfortably on SBT 14/. Will work to extubation but will probably need a #8 trach replaced. 06/17: Awake and alert, remains orally intubated on mechanical ventilation. Daily C Pap trials. We will discuss with Dr. Rosenberg regarding replacing tracheostomy in OR. 06/18: Awake and alert, remains orally intubated on mechanical ventilation. Daily C Pap trials. Awaiting tracheostomy with Dr. Rosenberg in OR Objective Vital Signs Date Time Temp Pulse Resp B/P Pulse Ox O2 Delivery O2 Flow Rate FiO2 06/18/16 11:38 92 High Flow Nasal Cannula 25.00 65 06/18/16 04:00 100.6 90 26 113/63 Intake and Output 06/17/16 06/17/16 06/18/16 08:00 16:00 00:00 Intake Total 1747 ml 1549 ml 2231 ml Output Total 2150 ml 1800 ml 1155 ml Balance -403 ml -251 ml 1076 ml Result Diagram: 06/18/16 0850 06/18/16 0850 Imaging Last Impressions Chest X-Ray 05/28/16 0600 Signed Impressions: Service Date/Time: Saturday, May 28, 2016 04:49 - CONCLUSION: Unchanged bibasilar densities. Wale Dalal MD Liver Ultrasound 05/09/16 0000 Signed Impressions: Service Date/Time: Monday, May 09, 2016 22:28 - CONCLUSION: 1. Enlarged, fatty liver. 2. Small stones or tumefactive sludge adherent to one of the gallbladder arcos. 3. Splenomegaly. 4. Pancreas is obscured by overlying bowel gas and patient's body habitus. Arthur Kennedy MD Abdomen X-Ray 05/01/16 0000 Signed Impressions: Service Date/Time: Sunday, May 01, 2016 17:28 - CONCLUSION: No evidence of obstruction. Feeding tube overlies the distal stomach, May have to be advanced slightly to reach the duodenum. Nick Jon MD Chest CT 03/28/16 0836 Signed Impressions: Service Date/Time: Monday, March 28, 2016 09:57 - CONCLUSION: Development areas of air bronchograms and consolidation more prominent in the right and left posterior basilar segments of the lower lobes. ET tube above the chanelle. Bernard Hartman MD CT Angiography 03/24/16 1121 Signed Impressions: Service Date/Time: Thursday, March 24, 2016 12:47 - CONCLUSION: 1. There is respiratory motion artifact but no PE is identified through most of the segmental level pulmonary arteries. 2. Mildly enlarged main pulmonary artery may indicate pulmonary arterial hypertension. 3. 11 mm left lower lobe noncalcified pulmonary nodule. Suggest correlation with any prior imaging studies that could confirm longer-term stability. If none are available consider short-term followup noncontrast chest CT in approximately 3 months. Ubaldo Rodas MD Objective Remarks GENERAL: 50-year-old morbidly obese male SKIN: Integrity intact. Warm and dry. HEAD: Atraumatic. Normocephalic. EYES: MARITZA, 2 millimeters bilaterally. ENT: Tracheostomy removed, site draining clear material. CARDIOVASCULAR: Distant heart sounds, tachycardia. RRR. S1, S2. No S4. Without murmur RESPIRATORY: On mechanical ventilation via ET tube, No crackles, no wheezes. Diminished breath sounds due to body habitus. GASTROINTESTINAL: Abdomen soft, obese, nontender. Severe central obesity, PEG tube site with thick yellowish drainage MUSCULOSKELETAL: Extremities with trace + nonpitting bilateral lower extremity edema. NEUROLOGICAL: Anxious, opens eyes, tracks.Moves 4 to command, tracks with eyes, nods head. Procedures 04/30/16 - tracheostomy by Dr. Reyes 05/03/16 - EGD with PEG placement by Dr. 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 Ventilator bundle Bronchodilator therapy every 6 hours With Atrovent nebs every 2 hours when necessary dyspnea Pulmonary Dr. Perry Re-intubation through mouth. Revise trach-D/W Dr. Murphy on 06/17, he will schedule for OR. CV: Monitor HR and BP keep MAP>65mmHg 2-D echo 03/26 EF 60%. No regional wall motion abnormality. Mild MR/TR. /FEN: Monitor renal function, I/O's, electrolytes replacement per protocol. GI: Constipation-resolved Moderate protein calorie malnutrition Nausea and vomiting Continue oral diet starting 05/29 Protonix 40mg daily Senna and Colace twice a day PEG tube placement- 05/03 Zofran 4 mg every 6 hours when necessary ID: Staph aureus pneumonia - resolved Pertinent culture 05/27 - sputum - MSSA 04/27 - pansensitive staph aureus 04/27 blood cultures 2 negative 04/25 - urine -no growth 04/19 - blood cultures 2 out of 4 - staph aureus 04/19 - sputum - staph aureus 04/08 - sputum - staph aureus 04/03 - sputum - staph aureus 03/30 - sputum- -staph aureus 03/27 - sputum - staph aureus 03/26 - blood - staph hominis On vancomycin 2 g IV every 12 are since 04/19 - 04/29 Azactam 04/27 through 04/29 Heme: Leukocytosis Monitor CBC/coags Monitor WBC labs every 3 days, unless clinically indicated. Repeat today Endo: Diabetes mellitus SSI for glycemic control with sliding scale insulin every 4 hours Levemir insulin 5 U hs, q6h SSI MSK Morbid obesity Weight loss encouraged DVT, GI prophylaxis -Bilateral lower extremity SCDs. IV Protonix 40 mg daily. Lovenox 40 mg sq BID LINES: -New SCV Left CVL placed 06/12 Overall impression: He became critically ill with diffuse pulmonary edema and hypoxemic respiratory failure; negative pressure pulmonary edema. Now improved gas exchange on APRV. It will be difficult to extubate him, will need to revise trach. Converted to conventional ventilation with PEEP 1, now tolerating SBT PEEP 10. Critical Care time excluding procedures 35 mins Aditya Monge MD Jun 18, 2016 12:10
[2016-06-18] MEDS: LEVOFLOXACIN 750 MG PREMIX INJ 150 ML IV SCH (13:05)
[2016-06-18 13:58] LABS: BACTERIA, URINE RARE /hpf; BLOOD, URINE NEG (NEG); CALCIUM OXALATE CRYSTALS,URINE OCC /hpf; GLUCOSE,URINE NEG (NEG); KETONE, URINE NEG (NEG); MUCUS URINE FEW /lpf (OCC); NITRITE,URINE NEG (NEG); URINE COLOR YELLOW (YELLW/STRAW)
[2016-06-18 14:01] LABS: COMMENT (UR) CATH-CULTURE IND; CULTURE IF INDICATED CATH CULTURE IND
--- NOTE | 2016-06-18 17:59 | HHI.PR ---
Subjective Remarks acute respiratory failure back on vent. support ALERT TODAY , FOLLOWS SIMPLE COMMANDS Objective Vital Signs Date Time Temp Pulse Resp B/P Pulse Ox O2 Delivery O2 Flow Rate FiO2 06/18/16 17:42 98 40 06/18/16 16:00 40 06/18/16 16:00 99.3 78 23 97/57 96 06/18/16 14:01 98 40 06/18/16 12:00 40 06/18/16 12:00 99.5 84 20 93/54 94 06/18/16 11:38 92 High Flow Nasal Cannula 25.00 65 06/18/16 11:18 97 40 06/18/16 08:00 40 06/18/16 08:00 100.0 92 26 107/68 94 06/18/16 07:36 97 40 06/18/16 07:00 97 Mechanical Ventilator 40 06/18/16 04:18 97 40 06/18/16 04:00 40 06/18/16 04:00 100.6 90 26 113/63 98 06/18/16 02:53 97 40 06/18/16 00:00 99.7 80 26 101/62 97 06/18/16 00:00 40 06/17/16 20:49 99 40 06/17/16 20:00 99.3 81 27 99/70 95 06/17/16 20:00 40 06/17/16 19:00 96 Mechanical Ventilator 40 I/O 06/17/16 06/17/16 06/17/16 06/18/16 06/18/16 06/18/16 07:00 15:00 23:00 07:00 15:00 23:00 Intake Total 1747 ml 1549 ml 2231 ml 2417 ml 1074 ml Output Total 2150 ml 1800 ml 1155 ml 1975 ml 1600 ml Balance -403 ml -251 ml 1076 ml 442 ml -526 ml IV Total 1370 ml 976 ml 1728 ml 2024 ml 515 ml Tube Feeding 257 ml 333 ml 303 ml 393 ml 289 ml Tube Irrigant 120 ml 240 ml 200 ml 270 ml Output Urine Total 2150 ml 1800 ml 1155 ml 1975 ml 1600 ml # Bowel Movements 0 2 0 1 Result Diagram: 06/18/16 0850 06/18/16 0850 Objective Remarks GENERAL: SKIN: Warm and dry.on vent support HEAD: Atraumatic. Normocephalic. EYES: Pupils equal and round. No scleral icterus. No injection or drainage. ENT: No nasal bleeding or discharge. Mucous membranes pink and moist. NECK: Trachea midline. No JVD. CARDIOVASCULAR: Regular rate and rhythm. RESPIRATORY: No accessory muscle use. Clear to auscultation. Breath sounds equal bilaterally. GASTROINTESTINAL: Abdomen soft, non-tender, nondistended. Hepatic and splenic margins not palpable. MUSCULOSKELETAL: Extremities without clubbing, cyanosis, or edema. No obvious deformities. NEUROLOGICAL: Awake and alert. No obvious cranial nerve deficits. Motor grossly within normal limits. Five out of 5 muscle strength in the arms and legs. Normal speech. PSYCHIATRIC: Appropriate mood and affect; insight and judgment normal. Assessment and Plan Assessment and Plan respiratory failure morbid obesity plan vent support pulm toilet prognosis guarded Orlando Perry MD Jun 18, 2016 17:59
[2016-06-18] MEDS: INSULIN DETEMIR 100 UNITS/ML VIAL SQ SCH (19:41)
[2016-06-19] VITALS (13 sets, daily range): BP systolic 94–127; BP diastolic 52–63; PULSE 76–104; RESP 15–28; TEMP 99.5–101.1; O2SAT 91–100
[2016-06-19] MEDS ORDERED: PHARMACY ORDERED LAB ONE (01:45)
[2016-06-19] MEDS: ARTIFICIAL TEARS OPTH SOLN 15 ML BTL EACH EYE SCH ×6 (02:38→22:20)
[2016-06-19] MEDS: VANCOMYCIN INJ 1,750 MG in SODIUM CHLORID 0.9% 500 ML INJ 500 ML IV SCH (03:33)
[2016-06-19] MEDS: AZTREONAM INJ 1,000 MG in SODIUM CHLORIDE 0.9% INJ 100 ML IV SCH (05:21)
[2016-06-19] MEDS: ENOXAPARIN SODIUM 40 MG/0.4 ML SYRINGE SQ SCH ×2 (05:21→18:24)
[2016-06-19] MEDS: INSULIN ASPART SUPPLEMENTAL SCALE SQ SCH ×4 (06:21→21:00)
--- NOTE | 2016-06-19 08:09 | HHI.CCPN ---
Subjective Remarks/Hospital Course Patient is a 50 years old obese male with past medical history significant for undiagnosed sleep apnea, super morbid obesity, type 2 diabetes was brought to the emergency department on 03/24/16 after feeling light headed and dizzy. On presentation here was found to be hypoxemic and ABG showed severe hypoxemia and hypercarbia. For a recent driving physical he was diagnosed with low oxygen saturations. Patient's oxygen saturation the ED was in the low 80s, which was confirmed on ABG with a oxygen saturation of 78% and PO2 of 46. CTA negative for PE. Patient was initiated on BiPAP therapy with consult to pulmonary Dr. Crane. His oxygenation improved but he continued to be hypercapnic. Today a.m. on nasal cannula his pH was 7.26 and PCO2 was increased at 99, patient was somnolent was placed back on BiPAP and repeat ABG at noon showed pH 7.26 PCO2 98 and pO2 70. This was on 16 BiPAP with FiO2 50%. Critical care was consulted. On my evaluation patient is somnolent but wakes up easily. I reduced the PEEP on BiPAP from 12-7 to facilitate better ventilation. A repeat ANG showed only minimal improvement, so decision made to intubate patient. Glidescope with #4 blade was used. Only propofol was used for induction. Initially I had a Grade 1-2 view, but I was unable to pass tube through the vocal cord to trachea in two attempts. Tube slipped out of Laryngeal opening both times. Dr Garrett intubated patient after NM paralysis with succinylcholine. Post intubation ABG showed improvement in hypercapnia and oxygenation. 03/27/16: Patient remains intubated heavily sedated with propofol and fentanyl. Remained severely hypoxemic on 100% FiO2, PEEP12, chest x-ray shows bibasilar infiltrates. Flagyl added. We'll give 1 dose of vancomycin-Adjust antibiotics according to cultures. Patient super morbid obesity may prevent Prone therapy 03/28: Remains hypoxic but ABG shows marginal improvement in oxygenation. WBC increasing 20.1 today. Start vancomycin scheduled. 03/29: Oxygenation is slightly improved. FiO2 reduced to 50% today. Chest x- ray remains unchanged. On sedation hold patient does wake up and follow commands. WBC count remains at 20 03/30 No acute events overnight. Sedated with Diprivan and Fentanyl. Had T: 100.1 at 4 am. WBC trending down 15.9 today from 20. 03/31 Patient remains sedated with Diprivan, Fentanyl and intubated. Tmax 100.1. Patient required increase O2 overnight now on ACV with PEEP: 12 and FIO2 70%. 04/01: Tmax 99.7. No bowel movement since admission. Patient has bowel sounds. Arousable on the ventilator. We'll attempt prone the patient paralyzed to increase oxygenation status. 04/02: MAXIMUM TEMPERATURE 100.9. Currently 97.7. 5 10 cc stools overnight. Placed on Roto prone yesterday. Saturations currently 94% on Flolan. Diuresed overnight. Creatinine still within normal limits. 04/03: Tmax 101. Currently 99.1. Positive BM. Did not tolerate not being unprone this AM. Saturations much improved prone. Tolerating tube feeding. 04/04: Tmax 100.8. Currently 98.8. +2 L past 24 hours. Attempt to on prone today. Positive BM. C. difficile negative. Remains paralyzed. 04/05: Remains sedated, orally intubated on neuromuscular blockade on mechanical ventilation. Remains on Rota prone bed. On insulin drip. 04/06: Remains sedated, orally intubated on neuromuscular blockade, on mechanical ventilation. Remains on Rota prone bed. Insulin drip continues. 04/07 Patient remains on Rotoprone bed sedated with Diprivan, Versed, Fentanyl in addition patient is on Nimbex. Afebrile. On Insulin drip 5u/hr. 04/08 Patient remains sedated and intubated and on Nimbex. Off insulin drip. On PRVC/AC with RR 15, TV 550, IT: 1.65, PEEP: 15 and FIO2 100%. T: 100.2 at 4 am. 04/09 Patient is sedated, intubated and remains on neuromuscular blockade. Vent setting unchanged. afebrile. 04/10 Patient remains sedated and intubated and on Nimbex. On PRVC/AC, RR 15, TV 500, PEEP: 15, FIO2 90%, IT:1.65, on Flolan drip. Remains on Rotoprone bed. 04/11 minimal improvement in oxygenation, FiO2 now at 75 - continue to improve oxygenation, worsening CXR 04/13/10 continue to improve oxygenation DC'd prone position last night 04/14- improving oxygenation, Nimbex discontinued as well as prone position 04/16 Patient is sedated with Versed and Fentanyl and intubated. Off rotoprone bed. On PRVC/AC RR 15, TV 550, IT 1.65, PEEP:15, FIO2 50%. 04/17 Patient remains sedated with Versed and Fentanyl. Afebrile, tolerating tube feeds 04/18 No acute events overnight Sedated and intubated. Afebrile. On PRVC/AC RR 15 , TV 550, IT 1.65, PEEP:15, FIO2 60% 04/19: Spiking fever up to 101, pancultured and 1 dose of vancomycin given by ID. On weaning doses of Flolan. FiO2 down to 50% I have reduced PEEP to 14. Remains critically ill 04/20: No fever. Sputum cx with Staph -S pending. Fio2 50% PEEP remains at 14. TV increased to 650 to improve lung recruitment. On weaning dose of Flolan-DC after current bag 04/21:Afebrile. Hyponatremia resolving, the patient will be placed on free water flushes. 04/22:The patient had an episode of acute desaturation requiring FiO2 increased to 90%. Stat chest x-ray stat ABG aggressive pulmonary toileting and suctioning , resolution of symptoms FiO2 now 55%. ABGs within normal limits. 04/23: Tmax 99.5. Currently afebrile. O2 sat 50%. PEEP down to 13. One small bowel movement overnight. 04/24: Currently afebrile. O2 sat 45%. PEEP to 12. One BM. Tolerating tube feeds. 04/25: Afebrile. PEEP down to 11. Positive BM. Tolerating tube feeds. Awake on the ventilator with eyes open. 04/26: Afebrile. PEEP down to 10. Time to feeding. Awake and alert eyes open. 04/27: Suspected fever overnight. One bowel movement documented. Will decreased PEEP to 9. Awake and alert and follows commands. 04/28: Tmax 99.3. Currently afebrile. FiO2 increased to 70%. PEEP to 10. Awake and does follow commands. Positive BM 4 yesterday. 04/29: FiO2 down to 55%. Peak systolic 10. Awake and does follow commands. Positive BM 1 yesterday. Tolerating tube feeding. 04/30: No acute issues overnight . The patient continues to be sedated with plans for tracheostomy in the OR today. The patient follows commands when on sedation vacation. 05/01: Postop day 1 post tracheostomy tube placement, no issues overnight. Plan for CPAP trials today. 05/02: Afebrile. The patient continues on CPAP trial 15/5 , FiO2 .45%. The patient alert and responsive this a.m., continues on Precedex and fentanyl infusion. By mouth narcotics, and fentanyl patch instituted to transition all fentanyl infusion. PEG tube placement pending. 05/03: The patient's fentanyl infusion was discontinued last evening. Multimodal analgesia initiated. Patient continues on Precedex infusion, GCS 14 T. Plans today for PEG placement later on this afternoon. No acute issues overnight. 05/04 Tmax 101.0. The patient's PICC line was removed, peripheral IVs initiated. Blood, urine and sputum cultures obtained. Methylprednisolone continues to be weaned currently at 20 mg daily. Plan for weaning of Precedex infusion off today. Seroquel 25 mg twice a day added to medication regimen. The patient continues on CPAP trials. 05/05: Tmax 99.1. Overnight the patient was maintained on CPAP trials of 15/5/40% , the patient's respiratory rate continues to be low 30s, tolerated well. The sake early this a.m. the patient was noticed to have a episode of nausea and vomiting Zofran instituted. The patient continues on scheduled Reglan TID. Blood , sputum and urine cultures were obtained yesterday secondary to elevated temperature awaiting results. 05/06: The patient remains on T piece greater than 48 hours. The patient is alert oriented and cooperative. Trach site without erythema or drainage. Patient was noticed over the last 12 hours to have multiple bowel movements or in the night. Will D/C MiraLAX, lactulose and Reglan will be discontinued. Plan for possible transfer to LTAC facility. 05/07 no acute issues overnight tolerating TPs 05/27 shortly after midnight rapid response team was called due to patient's respiratory distress and hypercarbic respiratory failure with hypoxemia and cyanosis 05/27: Tracheostomy was exchanged this morning to a #6 Shiley fenestrated cuffed. Currently on PRVC with PEEP of 10. Saturations are much improved. Awake and alert and following commands. Requesting diet. 05/28: Awake and alert. On mechanical ventilation via tracheostomy. Following commands. 05/29: Awake and alert. On mechanical ventilation via tracheostomy. Tolerating PO diet. Following commands. 05/30: Awake and alert. On mechanical ventilation via tracheostomy. Tolerating by mouth diet. Following commands. 05/31: Remains on mechanical ventilation via tracheostomy. Tolerating C Pap/ pressure support. Following commands. Tolerating by mouth diet. 06/01: Remains on mechanical ventilation via tracheostomy. Awake and alert. Tolerated C Pap and pressure support however gets extremely tachypneic on dropping pressure-support to +5. Tolerating by mouth diet 06/02: Tmax 99.5. Currently 99. Currently on T piece trial. Condom catheter placed. 06/03: Currently T piece trial. Saturations around 98 %. Appears comfortable. He is in no acute distress. No issues overnight 06/12: Hypoxemic respiratory failure and difficulty bag ventilating. Rushed to ICU with acceptable sats and immediately intubated through the mouth. Trach tube removed. Good ventilation immediately restored. CXR with diffuse pulmonary edema - question negative pressure. 06/13: Persistent diffuse infiltrates, MSSA sputum, start abx. Hydrate for oliguria. Convert to APRV for recruitment. 06/14: CXR has cleared and well expanded on APRV. Will work to convert to conventional and revise trach. 06/15: CXR clear. MSSA colonized but fever persists. Treat. Need to revise trach. 06/16: Breathing comfortably on SBT 14/10. Will work to extubation but will probably need a #8 trach replaced. 06/17: Awake and alert, remains orally intubated on mechanical ventilation. Daily C Pap trials. We will discuss with Dr. Rosenberg regarding replacing tracheostomy in OR. 06/18: Awake and alert, remains orally intubated on mechanical ventilation. Daily C Pap trials. Awaiting tracheostomy with Dr. Rosenberg in OR Subjective 06/19: complaining of headaches today. and right leg tingling. plan for possible trach today. Objective Vital Signs Date Time Temp Pulse Resp B/P Pulse Ox O2 Delivery O2 Flow Rate FiO2 06/19/16 07:10 91 40 06/19/16 07:00 Mechanical Ventilator 06/19/16 04:00 100.4 98 27 116/59 06/18/16 11:38 25.00 Intake and Output 06/18/16 06/18/16 06/19/16 08:00 16:00 00:00 Intake Total 2417 ml 1074 ml 1694 ml Output Total 1975 ml 1600 ml 1000 ml Balance 442 ml -526 ml 694 ml Result Diagram: 06/18/16 0850 06/18/16 0850 Imaging Last Impressions Chest X-Ray 05/28/16 0600 Signed Impressions: Service Date/Time: Saturday, May 28, 2016 04:49 - CONCLUSION: Unchanged bibasilar densities. Wale Dalal MD Liver Ultrasound 05/09/16 0000 Signed Impressions: Service Date/Time: Monday, May 09, 2016 22:28 - CONCLUSION: 1. Enlarged, fatty liver. 2. Small stones or tumefactive sludge adherent to one of the gallbladder arcos. 3. Splenomegaly. 4. Pancreas is obscured by overlying bowel gas and patient's body habitus. Arthur Kennedy MD Abdomen X-Ray 05/01/16 0000 Signed Impressions: Service Date/Time: Sunday, May 01, 2016 17:28 - CONCLUSION: No evidence of obstruction. Feeding tube overlies the distal stomach, May have to be advanced slightly to reach the duodenum. Nick Jon MD Chest CT 03/28/16 0836 Signed Impressions: Service Date/Time: Monday, March 28, 2016 09:57 - CONCLUSION: Development areas of air bronchograms and consolidation more prominent in the right and left posterior basilar segments of the lower lobes. ET tube above the chanelle. Bernard Hartman MD CT Angiography 03/24/16 1121 Signed Impressions: Service Date/Time: Thursday, March 24, 2016 12:47 - CONCLUSION: 1. There is respiratory motion artifact but no PE is identified through most of the segmental level pulmonary arteries. 2. Mildly enlarged main pulmonary artery may indicate pulmonary arterial hypertension. 3. 11 mm left lower lobe noncalcified pulmonary nodule. Suggest correlation with any prior imaging studies that could confirm longer-term stability. If none are available consider short-term followup noncontrast chest CT in approximately 3 months. Ubaldo Rodas MD Objective Remarks Gen: middle-aged super morbidly obese male, lying in bed, intubated. HEENT: nc. at. mucous membranes moist. orotracheally intubated. Neck: trach stoma with clear secretions. Chest: CPAP 15//40%. equal chest rise. CARDIOVASCULAR: Distant heart sounds, normal rate, regular rhythm. sinus by telemetry. Abd: Abdomen soft, obese, nontender. Severe central obesity, PEG tube site with thick yellowish drainage MUSCULOSKELETAL: Extremities with trace + nonpitting bilateral lower extremity edema. NEUROLOGICAL: Anxious, opens eyes, tracks.Moves 4 to command, tracks with eyes, nods head. Procedures 04/30/16 - tracheostomy by Dr. Reyes 05/03/16 - EGD with PEG placement by Dr. Faith 06/09/16 - PEG removal A/P Assessment and Plan Assessment: 50yM with super morbid obesity and acute on chronic respiratory failure, now requiring replacement of tracheostomy. Also severely deconditioned. we will work aggressively with physical therapy. Possible trach in the OR today. 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 -- add prn oxycone 2.5mg po q6h -- d/c fentanyl patch Seroquel 25mg BID initiated 05/04 -- increase Lyrica to 150 mg po daily. -- decrease Baclofen to 5mg po q12h. -- start tizanidine 2mg po q12h, as this has better adjuvant pain properties than baclofen and less likely to be addictive or NANCIE. Acetaminophen for fever or pain adjuvant. Pulm: Acute hypercarbic hypoxemic respiratory failure-resolved [facility] History of staph aureus pneumonia/HCAP ARDS Tracheostomy exchange to #6 Shiley fenestrated cuffed on 05/27 -> removed. Ventilator bundle Bronchodilator therapy every 6 hours With Atrovent nebs every 2 hours when necessary dyspnea Pulmonary Dr. Perry Re-intubation through mouth. Revise trach-D/W Dr. Murphy on 06/17, he will schedule for OR. plan for this week. CV: Monitor HR and BP keep MAP>65mmHg 2-D echo 03/26 EF 60%. No regional wall motion abnormality. Mild MR/TR. /FEN: Monitor renal function, I/O's, electrolytes replacement per protocol. GI: Constipation-resolved Moderate protein calorie malnutrition Nausea and vomiting Continue oral diet starting 05/29 Protonix 40mg daily Senna and Colace twice a day PEG tube placement- 05/03 Zofran 4 mg every 6 hours when necessary ID: Staph aureus pneumonia - resolved Pertinent culture 05/27 - sputum - MSSA 04/27 - pansensitive staph aureus 04/27 blood cultures 2 negative 04/25 - urine -no growth 04/19 - blood cultures 2 out of 4 - staph aureus 04/19 - sputum - staph aureus 04/08 - sputum - staph aureus 04/03 - sputum - staph aureus 03/30 - sputum- -staph aureus 03/27 - sputum - staph aureus 03/26 - blood - staph hominis On vancomycin 2 g IV every 12 are since 04/19 - 04/29 Azactam 04/27 through 04/29 Heme: Leukocytosis Monitor CBC/coags Monitor WBC labs every 3 days, unless clinically indicated. Repeat today Endo: Diabetes mellitus SSI for glycemic control with sliding scale insulin every 4 hours Levemir insulin 5 U hs, q6h SSI MSK Morbid obesity Weight loss encouraged DVT, GI prophylaxis -Bilateral lower extremity SCDs. IV Protonix 40 mg daily. Lovenox 40 mg sq BID LINES: -New SCV Left CVL placed 06/12 Js Garrett MD Jun 19, 2016 08:09
--- NOTE | 2016-06-19 08:17 | HHI.PR ---
Subjective Remarks acute respiratory failure back on vent. support ALERT TODAY , FOLLOWS SIMPLE COMMANDS Objective Vital Signs Date Time Temp Pulse Resp B/P Pulse Ox O2 Delivery O2 Flow Rate FiO2 06/19/16 07:10 91 40 06/19/16 07:00 92 Mechanical Ventilator 40 06/19/16 04:03 93 40 06/19/16 04:00 100.4 98 27 116/59 94 06/19/16 04:00 40 06/19/16 01:06 97 40 06/19/16 00:00 99.5 87 28 107/63 92 06/19/16 00:00 40 06/18/16 22:03 94 40 06/18/16 20:00 40 06/18/16 20:00 99.1 88 26 118/64 92 06/18/16 19:52 94 40 06/18/16 19:00 94 Mechanical Ventilator 40 06/18/16 17:42 98 40 06/18/16 16:00 40 06/18/16 16:00 99.3 78 23 97/57 96 06/18/16 14:01 98 40 06/18/16 12:00 40 06/18/16 12:00 99.5 84 20 93/54 94 06/18/16 11:38 92 High Flow Nasal Cannula 25.00 65 06/18/16 11:18 97 40 I/O 06/18/16 06/18/16 06/18/16 06/19/16 06/19/16 06/19/16 07:00 15:00 23:00 07:00 15:00 23:00 Intake Total 2417 ml 1074 ml 1694 ml 1484 ml Output Total 1975 ml 1600 ml 1000 ml 1250 ml Balance 442 ml -526 ml 694 ml 234 ml IV Total 2024 ml 515 ml 1188 ml 994 ml Tube Feeding 393 ml 289 ml 386 ml 340 ml Tube Irrigant 270 ml 120 ml 150 ml Output Urine Total 1975 ml 1600 ml 1000 ml 1250 ml # Bowel Movements 0 1 0 1 Result Diagram: 06/18/16 0850 06/18/16 0850 Objective Remarks GENERAL: SKIN: Warm and dry.on vent support HEAD: Atraumatic. Normocephalic. EYES: Pupils equal and round. No scleral icterus. No injection or drainage. ENT: No nasal bleeding or discharge. Mucous membranes pink and moist. NECK: Trachea midline. No JVD. CARDIOVASCULAR: Regular rate and rhythm. RESPIRATORY: No accessory muscle use. Clear to auscultation. Breath sounds equal bilaterally. GASTROINTESTINAL: Abdomen soft, non-tender, nondistended. Hepatic and splenic margins not palpable. MUSCULOSKELETAL: Extremities without clubbing, cyanosis, or edema. No obvious deformities. NEUROLOGICAL: Awake and alert. No obvious cranial nerve deficits. Motor grossly within normal limits. Five out of 5 muscle strength in the arms and legs. Normal speech. PSYCHIATRIC: Appropriate mood and affect; insight and judgment normal. Assessment and Plan Assessment and Plan respiratory failure morbid obesity plan vent support pulm toilet prognosis guarded Orlando Perry MD Jun 19, 2016 08:17
[2016-06-19] MEDS: POLYETHYLENE GLYCOL 17 GM PKG PO SCH ×2 (09:00→19:54)
[2016-06-19] MEDS: SODIUM CHLORIDE 0.9% FLUSH 5 ML FLUSH IVF SCH (09:00)
[2016-06-19] MEDS: BENEPROTEIN POWDER 1 PACK G-TUBE SCH ×3 (09:00→18:00)
[2016-06-19] MEDS: PREGABALIN 75 MG CAP PO SCH (09:00)
[2016-06-19] MEDS: SENNOSIDES SYRUP 8.8 MG/5 ML CUP PO/TUBE SCH ×2 (09:00→19:54)
[2016-06-19] MEDS: ACETAMINOPHEN 650 MG/20.3 ML UDC PO PRN ×2 (10:06→22:21)
[2016-06-19] MEDS: POTASSIUM CHLORIDE 10 MEQ CONTROLLED RELEASE TAB PO SCH (10:07)
[2016-06-19] MEDS: QUEtiapine FUMARATE 25 MG TAB PO SCH ×2 (10:07→22:20)
[2016-06-19] MEDS: PANTOPRAZOLE SOD 40 MG DELAYED RELEASE TAB PO SCH (10:07)
[2016-06-19] MEDS: POTASSIUM CHLORIDE INJ 10 MEQ in SODIUM CHLOR 0.9% 1000 ML INJ 1,000 ML IV SCH ×2 (10:08→23:55)
[2016-06-19] MEDS: BETAMETHASONE/CLOTRIMAZOLE CREAM 15 GM TOPICAL SCH ×2 (10:08→22:20)
[2016-06-19] MEDS: CHLORHEXIDINE 0.12% (ORAL KIT) 15 ML CUP MT SCH ×2 (10:08→22:19)
--- NOTE | 2016-06-19 10:08 | HHI.IDPN ---
Subjective Subjective Remarks Notes reviewed Temps better One low grade temps this morning Sputum with PSAE and MSSA BC negative UC pending, UA only 11 WBC On the vent Denies SOB No abdominal pain BP ok WBC stable Patient is a 50-year-old male admitted to the hospital for shortness of breath. There is a history of possible sleep apnea, and he has morbid obesity as well as diabetes. Patient . remained on the vent and he underwent tracheostomy May 01, 2016. He was treated several times for MSSA pneumonia. He was being followed from the ID standpoint, and we signed off the case on May 08. At that time he had completed a course of antibiotics for his pneumonia. He was also doing well and tolerating T piece, and has been off the respirator. Antibiotics Azactam Vancomycin Levaquin Lines [facility] - 06/12 Past Medical History Reviewed Allergies: Coded Allergies: Penicillin (Verified Allergy, Severe, Swelling, 03/24/16) Tetanus Toxoid (Verified Allergy, Unknown, Swelling, 03/24/16) Objective . Vital Signs Date Time Temp Pulse Resp B/P Pulse Ox O2 Delivery O2 Flow Rate FiO2 06/19/16 07:10 91 40 06/19/16 07:00 92 Mechanical Ventilator 40 06/19/16 04:03 93 40 06/19/16 04:00 100.4 98 27 116/59 94 06/19/16 04:00 40 06/19/16 01:06 97 40 06/19/16 00:00 99.5 87 28 107/63 92 06/19/16 00:00 40 06/18/16 22:03 94 40 06/18/16 20:00 40 06/18/16 20:00 99.1 88 26 118/64 92 06/18/16 19:52 94 40 06/18/16 19:00 94 Mechanical Ventilator 40 06/18/16 17:42 98 40 06/18/16 16:00 40 06/18/16 16:00 99.3 78 23 97/57 96 06/18/16 14:01 98 40 06/18/16 12:00 40 06/18/16 12:00 99.5 84 20 93/54 94 06/18/16 11:38 92 High Flow Nasal Cannula 25.00 65 06/18/16 11:18 97 40 06/18/16 06/18/16 06/19/16 15:00 23:00 07:00 Intake Total 1074 ml 1694 ml 1484 ml Output Total 1600 ml 1000 ml 1250 ml Balance -526 ml 694 ml 234 ml IV Total 515 ml 1188 ml 994 ml Tube Feeding 289 ml 386 ml 340 ml Tube Irrigant 270 ml 120 ml 150 ml Output Urine Total 1600 ml 1000 ml 1250 ml # Bowel Movements 1 0 1 . Laboratory Tests Test 06/18/16 08:50 White Blood Count 14.8 TH/MM3 Red Blood Count 3.26 MIL/MM3 Hemoglobin 9.1 GM/DL Hematocrit 27.7 % Mean Corpuscular Volume 84.8 FL Mean Corpuscular Hemoglobin 27.9 PG Mean Corpuscular Hemoglobin 32.9 % Concent Red Cell Distribution Width 18.1 % Platelet Count 370 TH/MM3 Mean Platelet Volume 8.0 FL Neutrophils (%) (Auto) 75.1 % Lymphocytes (%) (Auto) 13.3 % Monocytes (%) (Auto) 5.9 % Eosinophils (%) (Auto) 4.7 % Basophils (%) (Auto) 1.0 % Neutrophils # (Auto) 11.2 TH/MM3 Lymphocytes # (Auto) 2.0 TH/MM3 Monocytes # (Auto) 0.9 TH/MM3 Eosinophils # (Auto) 0.7 TH/MM3 Basophils # (Auto) 0.1 TH/MM3 CBC Comment AUTO DIFF Differential Total Cells 100 Counted Neutrophils % (Manual) 75 % Band Neutrophils % 4 % Lymphocytes % 15 % Monocytes % 3 % Eosinophils % 3 % Neutrophils # (Manual) 11.7 TH/MM3 Differential Comment FINAL DIFF MANUAL Platelet Estimate NORMAL Platelet Morphology Comment NORMAL Laboratory Tests Test 06/18/16 08:50 Sodium Level 139 MEQ/L Potassium Level 3.7 MEQ/L Chloride Level 102 MEQ/L Carbon Dioxide Level 30.3 MEQ/L Anion Gap 7 MEQ/L Blood Urea Nitrogen 4 MG/DL Creatinine 0.40 MG/DL Estimat Glomerular Filtration 228 ML/MIN Rate Random Glucose 115 MG/DL Calcium Level 8.5 MG/DL Microbiology Date/Time Procedure Status Source Growth 06/18/16 13:15 Urine Culture Received Urine Catheterized Urine Pending Imaging Chest X-Ray 06/14/16 0400 Signed Impressions: Service Date/Time: June 03:48 - CONCLUSION: Significant improvement of the lungs with minimal residual disease the right lower lobe. Wale Dalal MD Abdomen X-Ray 06/12/16 0000 Signed Impressions: Service Date/Time: Sunday, June 12, 2016 17:57 - CONCLUSION: 1. Nasogastric tube in place with the tip projected over the distal stomach. 2. Unremarkable bowel gas pattern. Genaro Garcia MD Lower Extremity Ultrasound 06/04/16 0000 Signed Impressions: Service Date/Time: Saturday, June 04, 2016 14:54 - CONCLUSION: 1. No DVT identified. Dc Barton MD Liver Ultrasound 05/09/16 0000 Signed Impressions: Service Date/Time: Monday, May 09, 2016 22:28 - CONCLUSION: 1. Enlarged, fatty liver. 2. Small stones or tumefactive sludge adherent to one of the gallbladder arcos. 3. Splenomegaly. 4. Pancreas is obscured by overlying bowel gas and patient's body habitus. Arthur Kennedy MD Chest CT 03/28/16 0836 Signed Impressions: Service Date/Time: Monday, March 28, 2016 09:57 - CONCLUSION: Development areas of air bronchograms and consolidation more prominent in the right and left posterior basilar segments of the lower lobes. ET tube above the chanelle. Bernard Hartman MD CT Angiography 03/24/16 1121 Signed Impressions: Service Date/Time: Thursday, March 24, 2016 12:47 - CONCLUSION: 1. There is respiratory motion artifact but no PE is identified through most of the segmental level pulmonary arteries. 2. Mildly enlarged main pulmonary artery may indicate pulmonary arterial hypertension. 3. 11 mm left lower lobe noncalcified pulmonary nodule. Suggest correlation with any prior imaging studies that could confirm longer-term stability. If none are available consider short-term followup noncontrast chest CT in approximately 3 months. Ubaldo Rodas MD Chest X-Ray 05/03/16 0600 Signed Impressions: Service Date/Time: May 04:08 - CONCLUSION: 1. Subsegmental airspace disease in the lungs. Cardiomegaly. Kyle Lorenzo MD Abdomen X-Ray 05/01/16 0000 Signed Impressions: Service Date/Time: Sunday, May 01, 2016 17:28 - CONCLUSION: No evidence of obstruction. Feeding tube overlies the distal stomach, May have to be advanced slightly to reach the duodenum. Nick A. Sevigny, MD Chest CT 03/28/16 0836 Signed Impressions: Service Date/Time: Monday, March 28, 2016 09:57 - CONCLUSION: Development areas of air bronchograms and consolidation more prominent in the right and left posterior basilar segments of the lower lobes. ET tube above the chanelle. Bernard Hartman MD CT Angiography 03/24/16 1121 Signed Impressions: Service Date/Time: Thursday, March 24, 2016 12:47 - CONCLUSION: 1. There is respiratory motion artifact but no PE is identified through most of the segmental level pulmonary arteries. 2. Mildly enlarged main pulmonary artery may indicate pulmonary arterial hypertension. 3. 11 mm left lower lobe noncalcified pulmonary nodule. Suggest correlation with any prior imaging studies that could confirm longer-term stability. If none are available consider short-term followup noncontrast chest CT in approximately 3 months. Ubaldo Rodas MD Physical Exam GENERAL: Awake and alert, obese, on the vent, not in distress, he is following commands. SKIN: Warm and moist. No generalized rash or ecchymosis. HEENT: [place] conjunctivae, no petechia or hemorrhage. No scleral icterus. No injection. No nasal drainage. He is orally intubated, has moist oral mucosa. NECK: Large and thick. Previous trach still open with some yellow drainage. No tenderness. CHEST: Coarse BS eufemia, equal breath sounds, decreased at the bases CARDIAC: regular rate and rhythm, no murmur ABDOMEN: soft, obese, (+) BS and normoactive, has R sided tenderness, no guarding or rebound. : Becker in place, urine looks clear MUSCULOSKELETAL: Extremities without clubbing, cyanosis. Mild edema NEUROLOGICAL: Awake and interacting. No facial asymmetry, LUCRECIA, full EOM. Moves all extremities. No Babinski PSYCH: Awake, cooperative LINE: LSC TLC with no evidence of infection : Becker in place, urine looks clear Assessment & Plan Remarks IMPRESSION Recurrent respiratory failure due to pulmonary edema - CXR better Fevers, etiology? - possible due to pulmonary, has PSAE and Staph aureus in sputum - he is adequately covered with Abx, but still with low grade temps Leukocytosis, persistent Pneumonia, C/S MSSA, S/P Rx x 2 - last sputum 05/27 with MSSA JACOB Morbid obesity Allergy to PCN, swelling RECOMMENDATION Follow C/S Monitor temps Monitor progress Change Abx to Cefepime which will cover PSAE and MSSA He received Ancef without any problem Will monitor closely in case he gets a rection to Cefepime Trach being discussed Elisha Painter MD Jun 19, 2016 10:08
[2016-06-19] MEDS: NYSTATIN 100,000 U/GM PWD 15 GM BTL TOPICAL SCH ×2 (10:09→22:20)
[2016-06-19] MEDS: SILVER SULFADIAZINE 1% CR 400 GM JAR TOPICAL SCH (10:09)
[2016-06-19] MEDS: LACTOBACILLUS ACIDOPHILUS TAB PO SCH ×3 (10:11→18:24)
[2016-06-19] MEDS: BACLOFEN 10 MG TAB PO SCH ×2 (10:11→22:20)
[2016-06-19] MEDS: DOCUSATE SODIUM 100 MG/10 ML UDC PO SCH ×2 (10:11→19:54)
--- NOTE | 2016-06-19 11:35 | RADRPT ---
EXAM DATE/TIME: 06/19/2016 10:43 [place] COMPARISON: ABDOMEN KUB ONLY, June 12, 2016, 17:57. INDICATIONS : NG tube placement. MEDICAL HISTORY : Diabetes mellitus type II. SURGICAL HISTORY : None. ENCOUNTER: Subsequent ACUITY: 2 months PAIN SCORE: Non-responsive. LOCATION: Bilateral abdomen. FINDINGS: Gastric tube tip descends to the level of the diaphragm but does not cross into the stomach. Side-po rt is at the T7-8 level. Prominent gas in the transverse colon. The visualized lower lungs clear. Eventration elevation of the right hemidiaphragm. CONCLUSION: Gastric tube tip does not cross the diaphragm and the side port is approximately 8 cm above the diaph ragm. Chano Goodwin MD on June 19, 2016 at 11:32 Board Certified Radiologist. This report was verified electronically.
[2016-06-19 11:44] LABS: BICARBONATE 32.6 MEQ/L (21.0-32.0); POTASSIUM 3.8 MEQ/L (3.5-5.1)
[2016-06-19] MEDS ORDERED: NOREPINEPHRINE-DEXTROSE DRIP 250 ML IV ONE (13:51)
[2016-06-19] MEDS ORDERED: VANCOMYCIN INJ 2,000 MG in SODIUM CHLORID 0.9% 500 ML INJ 500 ML IV SCH (14:00)
[2016-06-19] MEDS: CEFEPIME INJ 2,000 MG in SODIUM CHLORIDE 0.9% INJ 100 ML IV SCH ×2 (16:09→23:55)
[2016-06-19 16:54] LABS: HEMATOCRIT 25.7 % (39.0-51.0); MEAN CELL VOLUME 84.6 FL (80.0-100.0); MEAN CORPUSCULAR HEMOGLOBIN 28.8 PG (27.0-34.0); MEAN CORPUSCULAR HGB CONC 34.1 % (32.0-36.0); PLATELET COUNT 450 TH/MM3 (150-450); RED BLOOD COUNT 3.03 MIL/MM3 (4.50-5.90); RED CELL DISTRIBUTION WIDTH 17.8 % (11.6-17.2); REVIEW FLAG FINAL; WHITE BLOOD COUNT 20.9 TH/MM3 (4.0-11.0)
[2016-06-19] MEDS ORDERED: SODIUM CHLOR 0.9% 1000 ML INJ 1,000 ML IV STA (17:58)
[2016-06-19] MEDS: RESP: ALBUTEROL 2.5 MG/IPRATROPIUM 0.5 MG NEB (PRN) NEB (19:48)
[2016-06-19] MEDS: INSULIN DETEMIR 100 UNITS/ML VIAL SQ SCH (22:20)
[2016-06-20] VITALS (14 sets, daily range): BP systolic 93–116; BP diastolic 52–65; PULSE 62–92; RESP 16–22; TEMP 98.2–100.2; O2SAT 92–100
[2016-06-20] MEDS: ARTIFICIAL TEARS OPTH SOLN 15 ML BTL EACH EYE SCH ×6 (00:57→21:24)
[2016-06-20] MEDS: ACETAMINOPHEN 650 MG/20.3 ML UDC PO PRN ×2 (02:52→09:35)
[2016-06-20] MEDS: ENOXAPARIN SODIUM 40 MG/0.4 ML SYRINGE SQ SCH ×2 (04:45→17:57)
[2016-06-20] MEDS: INSULIN ASPART SUPPLEMENTAL SCALE SQ SCH ×4 (06:24→21:00)
[2016-06-20] MEDS: oxyCODONE HCL ORAL CONC 20 MG/ML SYRINGE PO PRN (07:58)
[2016-06-20] MEDS: CHLORHEXIDINE 0.12% (ORAL KIT) 15 ML CUP MT SCH ×2 (08:00→20:41)
[2016-06-20] MEDS: BENEPROTEIN POWDER 1 PACK G-TUBE SCH ×3 (08:49→17:50)
[2016-06-20] MEDS: DOCUSATE SODIUM 100 MG/10 ML UDC PO SCH ×2 (08:49→19:26)
[2016-06-20] MEDS: PANTOPRAZOLE SOD 40 MG DELAYED RELEASE TAB PO SCH (08:50)
[2016-06-20] MEDS: LACTOBACILLUS ACIDOPHILUS TAB PO SCH ×3 (08:53→17:50)
[2016-06-20] MEDS: PREGABALIN 75 MG CAP PO SCH (08:53)
[2016-06-20] MEDS: BACLOFEN 10 MG TAB PO SCH ×2 (08:53→21:00)
[2016-06-20] MEDS: SENNOSIDES SYRUP 8.8 MG/5 ML CUP PO/TUBE SCH ×2 (08:54→19:27)
[2016-06-20] MEDS: POLYETHYLENE GLYCOL 17 GM PKG PO SCH ×2 (08:54→19:26)
[2016-06-20] MEDS: SODIUM CHLORIDE 0.9% FLUSH 5 ML FLUSH IVF SCH (09:00)
[2016-06-20] MEDS: POTASSIUM CHLORIDE 10 MEQ CONTROLLED RELEASE TAB PO SCH (09:00)
[2016-06-20] MEDS: SILVER SULFADIAZINE 1% CR 400 GM JAR TOPICAL SCH (09:00)
[2016-06-20] MEDS: NYSTATIN 100,000 U/GM PWD 15 GM BTL TOPICAL SCH ×2 (09:00→21:24)
[2016-06-20] MEDS: BETAMETHASONE/CLOTRIMAZOLE CREAM 15 GM TOPICAL SCH ×2 (09:00→21:24)
[2016-06-20] MEDS: QUEtiapine FUMARATE 25 MG TAB PO SCH ×2 (09:00→21:00)
--- NOTE | 2016-06-20 10:50 | HHI.IDPN ---
Subjective Subjective Remarks Notes reviewed D/W RN Problems with fluctuating BP yesterday ON levophed Temps went up to 101 yesterday Sputum with PSAE and MSSA On the vent WBC higher Patient is a 50-year-old male admitted to the hospital for shortness of breath. There is a history of possible sleep apnea, and he has morbid obesity as well as diabetes. Patient . remained on the vent and he underwent tracheostomy May 01, 2016. He was treated several times for MSSA pneumonia. He was being followed from the ID standpoint, and we signed off the case on May 08. At that time he had completed a course of antibiotics for his pneumonia. He was also doing well and tolerating T piece, and has been off the respirator. Antibiotics Cefepime Lines [facility] [place] [facility] - 06/12 Past Medical History Reviewed Allergies: Coded Allergies: Penicillin (Verified Allergy, Severe, Swelling, 03/24/16) Tetanus Toxoid (Verified Allergy, Unknown, Swelling, 03/24/16) Objective . Vital Signs Date Time Temp Pulse Resp B/P Pulse Ox O2 Delivery O2 Flow Rate FiO2 06/20/16 08:00 100.2 85 22 109/64 95 06/20/16 08:00 40 06/20/16 07:41 96 40 06/20/16 04:06 97 40 06/20/16 04:00 40 06/20/16 04:00 99.5 70 16 116/56 97 06/20/16 01:15 96 40 06/20/16 00:00 40 06/20/16 00:00 99.1 62 19 109/64 97 06/19/16 22:10 97 40 06/19/16 20:00 99.9 82 24 112/59 97 06/19/16 20:00 40 06/19/16 19:54 100 40 06/19/16 19:00 97 Mechanical Ventilator 40 06/19/16 16:50 92 40 06/19/16 16:00 40 06/19/16 16:00 99.7 76 27 127/60 97 06/19/16 12:00 101.1 104 15 99/53 93 06/19/16 12:00 40 06/19/16 06/19/16 06/20/16 15:00 23:00 07:00 Intake Total 2059 ml 2281 ml 1100 ml Output Total 1000 ml 1500 ml 1350 ml Balance 1059 ml 781 ml -250 ml IV Total 1637 ml 1717 ml 696 ml Tube Feeding 302 ml 324 ml 284 ml Tube Irrigant 120 ml 240 ml 120 ml Output Urine Total 1000 ml 1500 ml 1350 ml # Bowel Movements 1 1 0 . Laboratory Tests Test 06/19/16 16:15 White Blood Count 20.9 TH/MM3 Red Blood Count 3.03 MIL/MM3 Hemoglobin 8.8 GM/DL Hematocrit 25.7 % Mean Corpuscular Volume 84.6 FL Mean Corpuscular Hemoglobin 28.8 PG Mean Corpuscular Hemoglobin 34.1 % Concent Red Cell Distribution Width 17.8 % Platelet Count 450 TH/MM3 Mean Platelet Volume 8.1 FL Laboratory Tests Test 06/19/16 10:47 Sodium Level 137 MEQ/L Potassium Level 3.8 MEQ/L Chloride Level 99 MEQ/L Carbon Dioxide Level 32.6 MEQ/L Anion Gap 5 MEQ/L Blood Urea Nitrogen 5 MG/DL Creatinine 0.38 MG/DL Estimat Glomerular Filtration 242 ML/MIN Rate Random Glucose 105 MG/DL Calcium Level 8.7 MG/DL Microbiology Date/Time Procedure Status Source Growth 06/18/16 13:15 Urine Culture - Final Complete Urine Catheterized Urine NO GROWTH IN 48 HOURS. Imaging Abdomen X-Ray 06/19/16 0000 Signed Impressions: Service Date/Time: Sunday, June 19, 2016 10:43 - CONCLUSION: Gastric tube tip does not cross the diaphragm and the side port is approximately 8 cm above the diaphragm. Chano Goodwin MD Chest X-Ray 06/14/16 0400 Signed Impressions: Service Date/Time: June 03:48 - CONCLUSION: Significant improvement of the lungs with minimal residual disease the right lower lobe. Wale Dalal MD Abdomen X-Ray 06/12/16 0000 Signed Impressions: Service Date/Time: Sunday, June 12, 2016 17:57 - CONCLUSION: 1. Nasogastric tube in place with the tip projected over the distal stomach. 2. Unremarkable bowel gas pattern. Genaro Garcia MD Lower Extremity Ultrasound 06/04/16 0000 Signed Impressions: Service Date/Time: Saturday, June 04, 2016 14:54 - CONCLUSION: 1. No DVT identified. Dc Barton MD Liver Ultrasound 05/09/16 0000 Signed Impressions: Service Date/Time: Monday, May 09, 2016 22:28 - CONCLUSION: 1. Enlarged, fatty liver. 2. Small stones or tumefactive sludge adherent to one of the gallbladder arcos. 3. Splenomegaly. 4. Pancreas is obscured by overlying bowel gas and patient's body habitus. Arthur Kennedy MD Chest CT 03/28/16 0836 Signed Impressions: Service Date/Time: Monday, March 28, 2016 09:57 - CONCLUSION: Development areas of air bronchograms and consolidation more prominent in the right and left posterior basilar segments of the lower lobes. ET tube above the chanelle. Bernard Hartman MD CT Angiography 03/24/16 1121 Signed Impressions: Service Date/Time: Thursday, March 24, 2016 12:47 - CONCLUSION: 1. There is respiratory motion artifact but no PE is identified through most of the segmental level pulmonary arteries. 2. Mildly enlarged main pulmonary artery may indicate pulmonary arterial hypertension. 3. 11 mm left lower lobe noncalcified pulmonary nodule. Suggest correlation with any prior imaging studies that could confirm longer-term stability. If none are available consider short-term followup noncontrast chest CT in approximately 3 months. Ubaldo Rodas MD Chest X-Ray 05/03/16 0600 Signed Impressions: Service Date/Time: May 04:08 - CONCLUSION: 1. Subsegmental airspace disease in the lungs. Cardiomegaly. Kyle Lorenzo MD Abdomen X-Ray 05/01/16 0000 Signed Impressions: Service Date/Time: Sunday, May 01, 2016 17:28 - CONCLUSION: No evidence of obstruction. Feeding tube overlies the distal stomach, May have to be advanced slightly to reach the duodenum. Nick Jon MD Chest CT 03/28/16 0836 Signed Impressions: Service Date/Time: Monday, March 28, 2016 09:57 - CONCLUSION: Development areas of air bronchograms and consolidation more prominent in the right and left posterior basilar segments of the lower lobes. ET tube above the chanelle. Bernard Hartman MD CT Angiography 03/24/16 1121 Signed Impressions: Service Date/Time: Thursday, March 24, 2016 12:47 - CONCLUSION: 1. There is respiratory motion artifact but no PE is identified through most of the segmental level pulmonary arteries. 2. Mildly enlarged main pulmonary artery may indicate pulmonary arterial hypertension. 3. 11 mm left lower lobe noncalcified pulmonary nodule. Suggest correlation with any prior imaging studies that could confirm longer-term stability. If none are available consider short-term followup noncontrast chest CT in approximately 3 months. Ubaldo Rodas MD Physical Exam GENERAL: Awake and alert, obese, on the vent, not in distress SKIN: Warm and moist. No generalized rash or ecchymosis. HEENT: [place] conjunctivae, no petechia or hemorrhage. No scleral icterus. He is orally intubated, has moist oral mucosa. NECK: Large and thick. Previous trach still open with some yellow drainage. No tenderness. CHEST: Coarse BS eufemia, equal breath sounds, decreased at the bases CARDIAC: regular rate and rhythm, no murmur ABDOMEN: soft, obese, (+) BS and normoactive, has R sided tenderness, no guarding or rebound. : Becker in place, urine looks clear MUSCULOSKELETAL: Extremities without clubbing, cyanosis. Mild edema NEUROLOGICAL: Awake and interacting. No facial asymmetry, LUCRECIA, full EOM. Moves all extremities. No Babinski PSYCH: Awake, cooperative LINE: LSC TLC with no evidence of infection : Becker in place, urine looks clear Assessment & Plan Remarks IMPRESSION Recurrent respiratory failure due to pulmonary edema - CXR better Fevers, etiology? - possible due to pulmonary, has PSAE and Staph aureus in sputum Leukocytosis, worse Pneumonia, C/S MSSA, S/P Rx x 2 - last sputum 05/27 with MSSA JACOB Morbid obesity Allergy to PCN, swelling Hypotension RECOMMENDATION Follow CBC 2 BC today Monitor temps Monitor progress Add Vanco and Diflucan Continue Cefepime which will cover PSAE and MSSA Will monitor closely in case he gets a rection to Cefepime Trach being discussed D/W RN Elisha Painter MD Jun 20, 2016 10:50 Elisha Painter MD Jun 20, 2016 10:50
[2016-06-20] MEDS ORDERED: VANCOMYCIN INJ 1,500 MG in SODIUM CHLORID 0.9% 500 ML INJ 500 ML IV ONE (11:00)
[2016-06-20] MEDS ORDERED: Vancomycin Consult Pharmacy 1 EA OTHER SCH (11:00)
[2016-06-20] MEDS ORDERED: PROPOFOL 200 MG/20 ML AMP IV ONE (11:14)
[2016-06-20] MEDS ORDERED: ONDANSETRON HCL 4 MG/2 ML VIAL IV PUSH ONE (11:14)
[2016-06-20] MEDS: CEFEPIME INJ 2,000 MG in SODIUM CHLORIDE 0.9% INJ 100 ML IV SCH (12:34)
[2016-06-20] MEDS: FLUCONAZOLE 400 MG PREMIX BAG 200 ML IV SCH (12:35)
--- NOTE | 2016-06-20 13:21 | HHI.CCPN ---
Subjective Remarks/Hospital Course Patient is a 50 years old obese male with past medical history significant for undiagnosed sleep apnea, super morbid obesity, type 2 diabetes was brought to the emergency department on 03/24/16 after feeling light headed and dizzy. On presentation here was found to be hypoxemic and ABG showed severe hypoxemia and hypercarbia. For a recent driving physical he was diagnosed with low oxygen saturations. Patient's oxygen saturation the ED was in the low 80s, which was confirmed on ABG with a oxygen saturation of 78% and PO2 of 46. CTA negative for PE. Patient was initiated on BiPAP therapy with consult to pulmonary Dr. Crane. His oxygenation improved but he continued to be hypercapnic. Today a.m. on nasal cannula his pH was 7.26 and PCO2 was increased at 99, patient was somnolent was placed back on BiPAP and repeat ABG at noon showed pH 7.26 PCO2 98 and pO2 70. This was on 16 BiPAP with FiO2 50%. Critical care was consulted. On my evaluation patient is somnolent but wakes up easily. I reduced the PEEP on BiPAP from 12-7 to facilitate better ventilation. A repeat ANG showed only minimal improvement, so decision made to intubate patient. Glidescope with #4 blade was used. Only propofol was used for induction. Initially I had a Grade 1-2 view, but I was unable to pass tube through the vocal cord to trachea in two attempts. Tube slipped out of Laryngeal opening both times. Dr Garrett intubated patient after NM paralysis with succinylcholine. Post intubation ABG showed improvement in hypercapnia and oxygenation. 03/27/16: Patient remains intubated heavily sedated with propofol and fentanyl. Remained severely hypoxemic on 100% FiO2, PEEP12, chest x-ray shows bibasilar infiltrates. Flagyl added. We'll give 1 dose of vancomycin-Adjust antibiotics according to cultures. Patient super morbid obesity may prevent Prone therapy 03/28: Remains hypoxic but ABG shows marginal improvement in oxygenation. WBC increasing 20.1 today. Start vancomycin scheduled. 03/29: Oxygenation is slightly improved. FiO2 reduced to 50% today. Chest x- ray remains unchanged. On sedation hold patient does wake up and follow commands. WBC count remains at 20 03/30 No acute events overnight. Sedated with Diprivan and Fentanyl. Had T: 100.1 at 4 am. WBC trending down 15.9 today from 20. 03/31 Patient remains sedated with Diprivan, Fentanyl and intubated. Tmax 100.1. Patient required increase O2 overnight now on ACV with PEEP: 12 and FIO2 70%. 04/01: Tmax 99.7. No bowel movement since admission. Patient has bowel sounds. Arousable on the ventilator. We'll attempt prone the patient paralyzed to increase oxygenation status. 04/02: MAXIMUM TEMPERATURE 100.9. Currently 97.7. 5 10 cc stools overnight. Placed on Roto prone yesterday. Saturations currently 94% on Flolan. Diuresed overnight. Creatinine still within normal limits. 04/03: Tmax 101. Currently 99.1. Positive BM. Did not tolerate not being unprone this AM. Saturations much improved prone. Tolerating tube feeding. 04/04: Tmax 100.8. Currently 98.8. +2 L past 24 hours. Attempt to on prone today. Positive BM. C. difficile negative. Remains paralyzed. 04/05: Remains sedated, orally intubated on neuromuscular blockade on mechanical ventilation. Remains on Rota prone bed. On insulin drip. 04/06: Remains sedated, orally intubated on neuromuscular blockade, on mechanical ventilation. Remains on Rota prone bed. Insulin drip continues. 04/07 Patient remains on Rotoprone bed sedated with Diprivan, Versed, Fentanyl in addition patient is on Nimbex. Afebrile. On Insulin drip 5u/hr. 04/08 Patient remains sedated and intubated and on Nimbex. Off insulin drip. On PRVC/AC with RR 15, TV 550, IT: 1.65, PEEP: 15 and FIO2 100%. T: 100.2 at 4 am. 04/09 Patient is sedated, intubated and remains on neuromuscular blockade. Vent setting unchanged. afebrile. 04/10 Patient remains sedated and intubated and on Nimbex. On PRVC/AC, RR 15, TV 500, PEEP: 15, FIO2 90%, IT:1.65, on Flolan drip. Remains on Rotoprone bed. 04/11 minimal improvement in oxygenation, FiO2 now at 75 - continue to improve oxygenation, worsening CXR 04/13/10 continue to improve oxygenation DC'd prone position last night 04/14- improving oxygenation, Nimbex discontinued as well as prone position 04/16 Patient is sedated with Versed and Fentanyl and intubated. Off rotoprone bed. On PRVC/AC RR 15, TV 550, IT 1.65, PEEP:15, FIO2 50%. 04/17 Patient remains sedated with Versed and Fentanyl. Afebrile, tolerating tube feeds 04/18 No acute events overnight Sedated and intubated. Afebrile. On PRVC/AC RR 15 , TV 550, IT 1.65, PEEP:15, FIO2 60% 04/19: Spiking fever up to 101, pancultured and 1 dose of vancomycin given by ID. On weaning doses of Flolan. FiO2 down to 50% I have reduced PEEP to 14. Remains critically ill 04/20: No fever. Sputum cx with Staph -S pending. Fio2 50% PEEP remains at 14. TV increased to 650 to improve lung recruitment. On weaning dose of Flolan-DC after current bag 04/21:Afebrile. Hyponatremia resolving, the patient will be placed on free water flushes. 04/22:The patient had an episode of acute desaturation requiring FiO2 increased to 90%. Stat chest x-ray stat ABG aggressive pulmonary toileting and suctioning , resolution of symptoms FiO2 now 55%. ABGs within normal limits. 04/23: Tmax 99.5. Currently afebrile. O2 sat 50%. PEEP down to 13. One small bowel movement overnight. 04/24: Currently afebrile. O2 sat 45%. PEEP to 12. One BM. Tolerating tube feeds. 04/25: Afebrile. PEEP down to 11. Positive BM. Tolerating tube feeds. Awake on the ventilator with eyes open. 04/26: Afebrile. PEEP down to 10. Time to feeding. Awake and alert eyes open. 04/27: Suspected fever overnight. One bowel movement documented. Will decreased PEEP to 9. Awake and alert and follows commands. 04/28: Tmax 99.3. Currently afebrile. FiO2 increased to 70%. PEEP to 10. Awake and does follow commands. Positive BM 4 yesterday. 04/29: FiO2 down to 55%. Peak systolic 10. Awake and does follow commands. Positive BM 1 yesterday. Tolerating tube feeding. 04/30: No acute issues overnight . The patient continues to be sedated with plans for tracheostomy in the OR today. The patient follows commands when on sedation vacation. 05/01: Postop day 1 post tracheostomy tube placement, no issues overnight. Plan for CPAP trials today. 05/02: Afebrile. The patient continues on CPAP trial 15/5 , FiO2 .45%. The patient alert and responsive this a.m., continues on Precedex and fentanyl infusion. By mouth narcotics, and fentanyl patch instituted to transition all fentanyl infusion. PEG tube placement pending. 05/03: The patient's fentanyl infusion was discontinued last evening. Multimodal analgesia initiated. Patient continues on Precedex infusion, GCS 14 T. Plans today for PEG placement later on this afternoon. No acute issues overnight. 05/04 Tmax 101.0. The patient's PICC line was removed, peripheral IVs initiated. Blood, urine and sputum cultures obtained. Methylprednisolone continues to be weaned currently at 20 mg daily. Plan for weaning of Precedex infusion off today. Seroquel 25 mg twice a day added to medication regimen. The patient continues on CPAP trials. 05/05: Tmax 99.1. Overnight the patient was maintained on CPAP trials of 15/5/40% , the patient's respiratory rate continues to be low 30s, tolerated well. The sake early this a.m. the patient was noticed to have a episode of nausea and vomiting Zofran instituted. The patient continues on scheduled Reglan TID. Blood , sputum and urine cultures were obtained yesterday secondary to elevated temperature awaiting results. 05/06: The patient remains on T piece greater than 48 hours. The patient is alert oriented and cooperative. Trach site without erythema or drainage. Patient was noticed over the last 12 hours to have multiple bowel movements or in the night. Will D/C MiraLAX, lactulose and Reglan will be discontinued. Plan for possible transfer to LTAC facility. 05/07 no acute issues overnight tolerating TPs 05/27 shortly after midnight rapid response team was called due to patient's respiratory distress and hypercarbic respiratory failure with hypoxemia and cyanosis 05/27: Tracheostomy was exchanged this morning to a #6 Shiley fenestrated cuffed. Currently on PRVC with PEEP of 10. Saturations are much improved. Awake and alert and following commands. Requesting diet. 05/28: Awake and alert. On mechanical ventilation via tracheostomy. Following commands. 05/29: Awake and alert. On mechanical ventilation via tracheostomy. Tolerating PO diet. Following commands. 05/30: Awake and alert. On mechanical ventilation via tracheostomy. Tolerating by mouth diet. Following commands. 05/31: Remains on mechanical ventilation via tracheostomy. Tolerating C Pap/ pressure support. Following commands. Tolerating by mouth diet. 06/01: Remains on mechanical ventilation via tracheostomy. Awake and alert. Tolerated C Pap and pressure support however gets extremely tachypneic on dropping pressure-support to +5. Tolerating by mouth diet 06/02: Tmax 99.5. Currently 99. Currently on T piece trial. Condom catheter placed. 06/03: Currently T piece trial. Saturations around 98 %. Appears comfortable. He is in no acute distress. No issues overnight 06/12: Hypoxemic respiratory failure and difficulty bag ventilating. Rushed to ICU with acceptable sats and immediately intubated through the mouth. Trach tube removed. Good ventilation immediately restored. CXR with diffuse pulmonary edema - question negative pressure. 06/13: Persistent diffuse infiltrates, MSSA sputum, start abx. Hydrate for oliguria. Convert to APRV for recruitment. 06/14: CXR has cleared and well expanded on APRV. Will work to convert to conventional and revise trach. 06/15: CXR clear. MSSA colonized but fever persists. Treat. Need to revise trach. 06/16: Breathing comfortably on SBT 14/. Will work to extubation but will probably need a #8 trach replaced. 06/17: Awake and alert, remains orally intubated on mechanical ventilation. Daily C Pap trials. We will discuss with Dr. Rosenberg regarding replacing tracheostomy in OR. 06/18: Awake and alert, remains orally intubated on mechanical ventilation. Daily C Pap trials. Awaiting tracheostomy with Dr. Rosenberg in OR 06/19: complaining of headaches today. and right leg tingling. plan for possible trach today. Subjective 06/20: continues on low-dose norepinephrine. wbc downtrending. vanc/diflucan added yesterday. going for trach today in OR. Objective Vital Signs Date Time Temp Pulse Resp B/P Pulse Ox O2 Delivery O2 Flow Rate FiO2 06/20/16 12:00 99.3 71 18 93/54 94 06/20/16 11:30 40 06/19/16 19:00 Mechanical Ventilator 06/18/16 11:38 25.00 Intake and Output 06/19/16 06/19/16 06/20/16 08:00 16:00 00:00 Intake Total 1484 ml 2059 ml 2281 ml Output Total 1250 ml 1000 ml 1500 ml Balance 234 ml 1059 ml 781 ml Result Diagram: 06/19/16 1615 06/19/16 1047 Other Results Microbiology Date/Time Procedure Status Source Growth 06/18/16 13:15 Urine Culture - Final Complete Urine Catheterized Urine NO GROWTH IN 48 HOURS. Imaging Last Impressions Chest X-Ray 05/28/16 0600 Signed Impressions: Service Date/Time: Saturday, May 28, 2016 04:49 - CONCLUSION: Unchanged bibasilar densities. Wale Dalal MD Liver Ultrasound 05/09/16 0000 Signed Impressions: Service Date/Time: Monday, May 09, 2016 22:28 - CONCLUSION: 1. Enlarged, fatty liver. 2. Small stones or tumefactive sludge adherent to one of the gallbladder arcos. 3. Splenomegaly. 4. Pancreas is obscured by overlying bowel gas and patient's body habitus. Arthur Kennedy MD Abdomen X-Ray 05/01/16 0000 Signed Impressions: Service Date/Time: Sunday, May 01, 2016 17:28 - CONCLUSION: No evidence of obstruction. Feeding tube overlies the distal stomach, May have to be advanced slightly to reach the duodenum. Nick Jon MD Chest CT 03/28/16 0836 Signed Impressions: Service Date/Time: Monday, March 28, 2016 09:57 - CONCLUSION: Development areas of air bronchograms and consolidation more prominent in the right and left posterior basilar segments of the lower lobes. ET tube above the chanelle. Bernard Hartman MD CT Angiography 03/24/16 1121 Signed Impressions: Service Date/Time: Thursday, March 24, 2016 12:47 - CONCLUSION: 1. There is respiratory motion artifact but no PE is identified through most of the segmental level pulmonary arteries. 2. Mildly enlarged main pulmonary artery may indicate pulmonary arterial hypertension. 3. 11 mm left lower lobe noncalcified pulmonary nodule. Suggest correlation with any prior imaging studies that could confirm longer-term stability. If none are available consider short-term followup noncontrast chest CT in approximately 3 months. Ubaldo Rodas MD Objective Remarks Gen: middle-aged super morbidly obese male, lying in bed, intubated. HEENT: nc. at. mucous membranes moist. orotracheally intubated. Neck: trach stoma with clear secretions. Chest: CPAP 15/8/40%. equal chest rise. CARDIOVASCULAR: Distant heart sounds, normal rate, regular rhythm. sinus by telemetry. Abd: Abdomen soft, obese, nontender. Severe central obesity, PEG tube site with thick yellowish drainage MUSCULOSKELETAL: Extremities with trace + nonpitting bilateral lower extremity edema. NEUROLOGICAL: Anxious, opens eyes, tracks.Moves 4 to command, tracks with eyes, nods head. Procedures 04/30/16 - tracheostomy by Dr. Reyes 05/03/16 - EGD with PEG placement by Dr. Faith 06/09/16 - PEG removal A/P Assessment and Plan Assessment: 50yM with super morbid obesity and acute on chronic respiratory failure, now requiring replacement of tracheostomy. Also severely deconditioned. we will work aggressively with physical therapy. trach in OR today. From an infectious standpoint, he does appear to be in septic shock unresponsive to fluid boluses. cultures pending. will likely need to replace CVL since it has been in > 7 days with fever/leukocytosis. 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 -- prn oxycone 2.5mg po q6h Seroquel 25mg BID initiated 05/04 -- Lyrica to 150 mg po daily. -- Baclofen to 5mg po q12h. -- tizanidine 2mg po q12h, as this has better adjuvant pain properties than baclofen and less likely to be addictive or NANCIE. Acetaminophen for fever or pain adjuvant. Pulm: Acute hypercarbic hypoxemic respiratory failure-resolved [facility] History of staph aureus pneumonia/HCAP ARDS Tracheostomy exchange to #6 Shiley fenestrated cuffed on 05/27 -> removed. Ventilator bundle Bronchodilator therapy every 6 hours With Atrovent nebs every 2 hours when necessary dyspnea Pulmonary Dr. Perry Re-intubation through mouth. Revise trach today with Dr. Cuellar CV: Monitor HR and BP keep MAP>65mmHg 2-D echo 03/26 EF 60%. No regional wall motion abnormality. Mild MR/TR. /FEN: Monitor renal function, I/O's, electrolytes replacement per protocol. GI: Constipation-resolved Moderate protein calorie malnutrition Nausea and vomiting Continue oral diet starting 05/29 Protonix 40mg daily Senna and Colace twice a day PEG tube placement- 05/03 Zofran 4 mg every 6 hours when necessary ID: Staph aureus pneumonia - resolved Pertinent culture 05/27 - sputum - MSSA 04/27 - pansensitive staph aureus 04/27 blood cultures 2 negative 04/25 - urine -no growth 04/19 - blood cultures 2 out of 4 - staph aureus 04/19 - sputum - staph aureus 04/08 - sputum - staph aureus 04/03 - sputum - staph aureus 03/30 - sputum- -staph aureus 03/27 - sputum - staph aureus 03/26 - blood - staph hominis On vancomycin 2 g IV every 12 are since 04/19 - 04/29 Azactam 04/27 through 04/29 Heme: Leukocytosis Monitor CBC/coags Monitor WBC bmp and cbc today. Endo: Diabetes mellitus SSI for glycemic control with sliding scale insulin every 4 hours Levemir insulin 5 U hs, q6h SSI MSK Morbid obesity Weight loss encouraged DVT, GI prophylaxis -Bilateral lower extremity SCDs. IV Protonix 40 mg daily. Lovenox 40 mg sq BID LINES: -New SCV Left CVL placed 06/12. will likely require replacement today given ongoing septic shock. Js Garrett MD Jun 20, 2016 13:21
[2016-06-20] MEDS: VANCOMYCIN INJ 2,000 MG in SODIUM CHLORID 0.9% 500 ML INJ 500 ML IV SCH (15:00)
[2016-06-20 17:14] LABS: MEAN CELL VOLUME 86.1 FL (80.0-100.0); MEAN CORPUSCULAR HEMOGLOBIN 28.5 PG (27.0-34.0); MEAN CORPUSCULAR HGB CONC 33.1 % (32.0-36.0); PLATELET COUNT 443 TH/MM3 (150-450); RED BLOOD COUNT 3.36 MIL/MM3 (4.50-5.90); RED CELL DISTRIBUTION WIDTH 18.3 % (11.6-17.2); REVIEW FLAG FINAL; WHITE BLOOD COUNT 17.6 TH/MM3 (4.0-11.0)
[2016-06-20 17:31] LABS: BICARBONATE 27.5 MEQ/L (21.0-32.0)
[2016-06-20] MEDS: POTASSIUM CHLORIDE INJ 10 MEQ in SODIUM CHLOR 0.9% 1000 ML INJ 1,000 ML IV SCH ×2 (17:57→20:41)
--- NOTE | 2016-06-20 20:16 | HHI.PR ---
Subjective Remarks acute respiratory failure back on vent. support tracheostomy done Objective Vital Signs Date Time Temp Pulse Resp B/P Pulse Ox O2 Delivery O2 Flow Rate FiO2 06/20/16 16:00 99.1 89 20 115/65 97 06/20/16 16:00 89 06/20/16 15:49 100 40 06/20/16 14:50 92 40 06/20/16 13:25 100 06/20/16 12:00 99.3 71 18 93/54 94 06/20/16 11:30 95 40 06/20/16 08:00 100.2 85 22 109/64 95 06/20/16 08:00 40 06/20/16 07:41 96 40 06/20/16 04:06 97 40 06/20/16 04:00 40 06/20/16 04:00 99.5 70 16 116/56 97 06/20/16 01:15 96 40 06/20/16 00:00 40 06/20/16 00:00 99.1 62 19 109/64 97 06/19/16 22:10 97 40 I/O 06/19/16 06/19/16 06/19/16 06/20/16 06/20/16 06/20/16 07:00 15:00 23:00 07:00 15:00 23:00 Intake Total 1484 ml 2059 ml 2281 ml 1100 ml 704 ml Output Total 1250 ml 1000 ml 1500 ml 1350 ml 1550 ml Balance 234 ml 1059 ml 781 ml -250 ml -846 ml IV Total 994 ml 1637 ml 1717 ml 696 ml 704 ml Tube Feeding 340 ml 302 ml 324 ml 284 ml Tube Irrigant 150 ml 120 ml 240 ml 120 ml Output Urine Total 1250 ml 1000 ml 1500 ml 1350 ml 1550 ml Gastric Drainage Total 0 ml # Bowel Movements 1 1 1 0 0 1 Result Diagram: 06/20/16 1705 06/20/16 170 Objective Remarks GENERAL: SKIN: Warm and dry.on vent support HEAD: Atraumatic. Normocephalic. EYES: Pupils equal and round. No scleral icterus. No injection or drainage. ENT: No nasal bleeding or discharge. Mucous membranes pink and moist. NECK: Trachea midline. No JVD. CARDIOVASCULAR: Regular rate and rhythm. RESPIRATORY: No accessory muscle use. Clear to auscultation. Breath sounds equal bilaterally. GASTROINTESTINAL: Abdomen soft, non-tender, nondistended. Hepatic and splenic margins not palpable. MUSCULOSKELETAL: Extremities without clubbing, cyanosis, or edema. No obvious deformities. NEUROLOGICAL: Awake and alert. No obvious cranial nerve deficits. Motor grossly within normal limits. Five out of 5 muscle strength in the arms and legs. Normal speech. PSYCHIATRIC: Appropriate mood and affect; insight and judgment normal. Assessment and Plan Assessment and Plan respiratory failure morbid obesity plan vent support pulm toilet prognosis guarded Orlando Perry MD Jun 20, 2016 20:16
[2016-06-20] MEDS: INSULIN DETEMIR 100 UNITS/ML VIAL SQ SCH (21:24)
--- NOTE | 2016-06-20 22:23 | EKG ---
Date Performed: 06/20/2016 Time Performed: 05:11:34 PTAGE: 50 years EKG: Sinus rhythm Normal ECG PREVIOUS TRACING : 03/24/2016 11.26 Compared to prior tracing no significant change DOCTOR: Ethan Russo Interpretating Date/Time 06/20/2016 22:21:37
[2016-06-21] VITALS (17 sets, daily range): BP systolic 99–107; BP diastolic 53–60; PULSE 78–102; RESP 17–25; TEMP 99–99.9; O2SAT 90–99
[2016-06-21] MEDS: VANCOMYCIN INJ 2,000 MG in SODIUM CHLORID 0.9% 500 ML INJ 500 ML IV SCH ×2 (00:41→13:17)
[2016-06-21] MEDS: CEFEPIME INJ 2,000 MG in SODIUM CHLORIDE 0.9% INJ 100 ML IV SCH ×2 (00:41→12:02)
[2016-06-21] MEDS ORDERED: PHARMACY ORDERED LAB ONE (01:45)
[2016-06-21] MEDS: ARTIFICIAL TEARS OPTH SOLN 15 ML BTL EACH EYE SCH ×5 (02:00→22:49)
[2016-06-21 04:54] LABS: HEMATOCRIT 28.5 % (39.0-51.0); MEAN CELL VOLUME 85.4 FL (80.0-100.0); MEAN CORPUSCULAR HEMOGLOBIN 27.5 PG (27.0-34.0); MEAN CORPUSCULAR HGB CONC 32.1 % (32.0-36.0); PLATELET COUNT 474 TH/MM3 (150-450); RED BLOOD COUNT 3.34 MIL/MM3 (4.50-5.90); RED CELL DISTRIBUTION WIDTH 18.2 % (11.6-17.2); REVIEW FLAG FINAL; WHITE BLOOD COUNT 15.8 TH/MM3 (4.0-11.0)
[2016-06-21 04:57] LABS: BICARBONATE 29.5 MEQ/L (21.0-32.0); POTASSIUM 3.8 MEQ/L (3.5-5.1)
[2016-06-21] MEDS: INSULIN ASPART SUPPLEMENTAL SCALE SQ SCH ×4 (06:09→20:42)
[2016-06-21] MEDS: ENOXAPARIN SODIUM 40 MG/0.4 ML SYRINGE SQ SCH ×2 (06:17→18:07)
[2016-06-21] MEDS: CHLORHEXIDINE 0.12% (ORAL KIT) 15 ML CUP MT SCH ×2 (08:00→20:41)
--- NOTE | 2016-06-21 08:41 | HHI.PR ---
Subjective Remarks acute respiratory failure back on vent. support tracheostomy done Objective Vital Signs Date Time Temp Pulse Resp B/P Pulse Ox O2 Delivery O2 Flow Rate FiO2 06/21/16 08:04 94 40 06/21/16 07:55 92 40 06/21/16 06:03 95 40 06/21/16 04:00 99.0 102 18 105/59 95 06/21/16 04:00 40 06/21/16 01:23 96 40 06/21/16 00:00 99.0 90 17 105/60 95 06/21/16 00:00 40 06/20/16 20:55 96 40 06/20/16 20:00 98.2 92 16 94/52 96 06/20/16 20:00 40 06/20/16 20:00 90 06/20/16 16:00 99.1 89 20 115/65 97 06/20/16 16:00 89 06/20/16 15:49 100 40 06/20/16 14:50 92 40 06/20/16 13:25 100 06/20/16 12:00 99.3 71 18 93/54 94 06/20/16 11:30 95 40 I/O 06/20/16 06/20/16 06/20/16 06/21/16 06/21/16 06/21/16 07:00 15:00 23:00 07:00 15:00 23:00 Intake Total 1100 ml 704 ml 1132 ml 1025 ml Output Total 1350 ml 1550 ml 1950 ml 1700 ml Balance -250 ml -846 ml -818 ml -675 ml IV Total 696 ml 704 ml 1132 ml 1025 ml Tube Feeding 284 ml Tube Irrigant 120 ml Output Urine Total 1350 ml 1550 ml 1950 ml 1700 ml Gastric Drainage Total 0 ml # Bowel Movements 0 0 2 2 Result Diagram: 06/21/16 0342 06/21/16 034 Objective Remarks GENERAL: SKIN: Warm and dry.on vent support HEAD: Atraumatic. Normocephalic. EYES: Pupils equal and round. No scleral icterus. No injection or drainage. ENT: No nasal bleeding or discharge. Mucous membranes pink and moist. NECK: Trachea midline. No JVD. CARDIOVASCULAR: Regular rate and rhythm. RESPIRATORY: No accessory muscle use. Clear to auscultation. Breath sounds equal bilaterally. GASTROINTESTINAL: Abdomen soft, non-tender, nondistended. Hepatic and splenic margins not palpable. MUSCULOSKELETAL: Extremities without clubbing, cyanosis, or edema. No obvious deformities. NEUROLOGICAL: Awake and alert. No obvious cranial nerve deficits. Motor grossly within normal limits. Five out of 5 muscle strength in the arms and legs. Normal speech. PSYCHIATRIC: Appropriate mood and affect; insight and judgment normal. Assessment and Plan Assessment and Plan respiratory failure morbid obesity plan vent support pulm toilet prognosis guarded Orlando Perry MD Jun 21, 2016 08:41
[2016-06-21] MEDS: BENEPROTEIN POWDER 1 PACK G-TUBE SCH ×2 (08:51→18:09)
[2016-06-21] MEDS: SODIUM CHLORIDE 0.9% FLUSH 5 ML FLUSH IVF SCH (08:51)
[2016-06-21] MEDS: DOCUSATE SODIUM 100 MG/10 ML UDC PO SCH ×2 (08:51→20:41)
[2016-06-21] MEDS: POLYETHYLENE GLYCOL 17 GM PKG PO SCH ×2 (08:51→20:41)
[2016-06-21] MEDS: POTASSIUM CHLORIDE INJ 10 MEQ in SODIUM CHLOR 0.9% 1000 ML INJ 1,000 ML IV SCH (08:52)
[2016-06-21] MEDS: SILVER SULFADIAZINE 1% CR 400 GM JAR TOPICAL SCH (08:52)
[2016-06-21] MEDS: SENNOSIDES SYRUP 8.8 MG/5 ML CUP PO/TUBE SCH ×2 (08:52→20:41)
[2016-06-21] MEDS: FLUCONAZOLE 400 MG PREMIX BAG 200 ML IV SCH (10:08)
[2016-06-21] MEDS: QUEtiapine FUMARATE 25 MG TAB PO SCH (10:58)
[2016-06-21] MEDS: BACLOFEN 10 MG TAB PO SCH (10:58)
[2016-06-21] MEDS: PREGABALIN 75 MG CAP PO SCH (10:58)
[2016-06-21] MEDS: LACTOBACILLUS ACIDOPHILUS TAB PO SCH ×3 (10:58→18:07)
[2016-06-21] MEDS: PANTOPRAZOLE SOD 40 MG DELAYED RELEASE TAB PO SCH (10:58)
[2016-06-21] MEDS: POTASSIUM CHLORIDE 10 MEQ CONTROLLED RELEASE TAB PO SCH (10:59)
--- NOTE | 2016-06-21 12:09 | HHI.IDPN ---
Subjective Subjective Remarks Notes reviewed D/W RN Off pressors S/P trach yesterday Temps better Sputum with PSAE and MSSA On the vent WBC improving Patient is a 50-year-old male admitted to the hospital for shortness of breath. There is a history of possible sleep apnea, and he has morbid obesity as well as diabetes. Patient . remained on the vent and he underwent tracheostomy May 01, 2016. He was treated several times for MSSA pneumonia. He was being followed from the ID standpoint, and we signed off the case on May 08. At that time he had completed a course of antibiotics for his pneumonia. He was also doing well and tolerating T piece, and has been off the respirator. Antibiotics Cefepime Vanco Diflucan Lines [facility] - 06/12 Past Medical History Reviewed Allergies: Coded Allergies: Penicillin (Verified Allergy, Severe, Swelling, 03/24/16) Tetanus Toxoid (Verified Allergy, Unknown, Swelling, 03/24/16) Objective . Vital Signs Date Time Temp Pulse Resp B/P Pulse Ox O2 Delivery O2 Flow Rate FiO2 06/21/16 11:58 25 06/21/16 11:45 93 T-Piece 9.00 40 06/21/16 10:06 94 40 06/21/16 08:05 40 06/21/16 08:04 94 40 06/21/16 08:00 96 06/21/16 08:00 40 06/21/16 08:00 99.9 96 25 107/57 96 06/21/16 07:55 92 40 06/21/16 06:03 95 40 06/21/16 04:00 99.0 102 18 105/59 95 06/21/16 04:00 40 06/21/16 01:23 96 40 06/21/16 00:00 99.0 90 17 105/60 95 06/21/16 00:00 40 06/20/16 20:55 96 40 06/20/16 20:00 98.2 92 16 94/52 96 06/20/16 20:00 40 06/20/16 20:00 90 06/20/16 16:00 99.1 89 20 115/65 97 06/20/16 16:00 89 06/20/16 15:49 100 40 06/20/16 14:50 92 40 06/20/16 13:25 100 06/20/16 06/20/16 06/21/16 15:00 23:00 07:00 Intake Total 704 ml 1132 ml 1025 ml Output Total 1550 ml 1950 ml 1700 ml Balance -846 ml -818 ml -675 ml IV Total 704 ml 1132 ml 1025 ml Output Urine Total 1550 ml 1950 ml 1700 ml Gastric Drainage Total 0 ml # Bowel Movements 0 2 2 . Laboratory Tests Test 06/19/16 06/20/16 06/21/16 16:15 17:05 03:42 White Blood Count 20.9 TH/MM3 17.6 TH/MM3 15.8 TH/MM3 Red Blood Count 3.03 MIL/MM3 3.36 MIL/MM3 3.34 MIL/MM3 Hemoglobin 8.8 GM/DL 9.6 GM/DL 9.2 GM/DL Hematocrit 25.7 % 29.0 % 28.5 % Mean Corpuscular Volume 84.6 FL 86.1 FL 85.4 FL Mean Corpuscular Hemoglobin 28.8 PG 28.5 PG 27.5 PG Mean Corpuscular Hemoglobin 34.1 % 33.1 % 32.1 % Concent Red Cell Distribution Width 17.8 % 18.3 % 18.2 % Platelet Count 450 TH/MM3 443 TH/MM3 474 TH/MM3 Mean Platelet Volume 8.1 FL 8.0 FL 7.9 FL Laboratory Tests Test 06/20/16 06/21/16 17:05 03:42 Sodium Level 139 MEQ/L 139 MEQ/L Potassium Level 4.0 MEQ/L 3.8 MEQ/L Chloride Level 105 MEQ/L 102 MEQ/L Carbon Dioxide Level 27.5 MEQ/L 29.5 MEQ/L Anion Gap 7 MEQ/L 8 MEQ/L Blood Urea Nitrogen 6 MG/DL 6 MG/DL Creatinine 0.35 MG/DL 0.30 MG/DL Estimat Glomerular Filtration 266 ML/MIN 317 ML/MIN Rate Random Glucose 99 MG/DL 76 MG/DL Calcium Level 8.6 MG/DL 8.4 MG/DL Microbiology Date/Time Procedure Status Source Growth 06/18/16 13:15 Urine Culture - Final Complete Urine Catheterized Urine NO GROWTH IN 48 HOURS. 06/20/16 11:40 Aerobic Blood Culture - Preliminary Resulted Blood Peripheral NO GROWTH IN 1 DAY 06/20/16 11:40 Anaerobic Blood Culture - Preliminary Resulted Blood Peripheral NO GROWTH IN 1 DAY 06/20/16 11:49 Aerobic Blood Culture - Preliminary Resulted Blood Peripheral NO GROWTH IN 1 DAY 06/20/16 11:49 Anaerobic Blood Culture - Preliminary Resulted Blood Peripheral NO GROWTH IN 1 DAY Imaging Abdomen X-Ray 06/19/16 0000 Signed Impressions: Service Date/Time: Sunday, June 19, 2016 10:43 - CONCLUSION: Gastric tube tip does not cross the diaphragm and the side port is approximately 8 cm above the diaphragm. Chano Goodwin MD Chest X-Ray 06/14/16 0400 Signed Impressions: Service Date/Time: June 03:48 - CONCLUSION: Significant improvement of the lungs with minimal residual disease the right lower lobe. Wale Dalal MD Abdomen X-Ray 06/12/16 0000 Signed Impressions: Service Date/Time: Sunday, June 12, 2016 17:57 - CONCLUSION: 1. Nasogastric tube in place with the tip projected over the distal stomach. 2. Unremarkable bowel gas pattern. Genaro Garcia MD Lower Extremity Ultrasound 06/04/16 0000 Signed Impressions: Service Date/Time: Saturday, June 04, 2016 14:54 - CONCLUSION: 1. No DVT identified. Dc Barton MD Liver Ultrasound 05/09/16 0000 Signed Impressions: Service Date/Time: Monday, May 09, 2016 22:28 - CONCLUSION: 1. Enlarged, fatty liver. 2. Small stones or tumefactive sludge adherent to one of the gallbladder arcos. 3. Splenomegaly. 4. Pancreas is obscured by overlying bowel gas and patient's body habitus. Arthur Kennedy MD Chest CT 03/28/16 0836 Signed Impressions: Service Date/Time: Monday, March 28, 2016 09:57 - CONCLUSION: Development areas of air bronchograms and consolidation more prominent in the right and left posterior basilar segments of the lower lobes. ET tube above the chanelle. Bernard Hartman MD CT Angiography 03/24/16 1121 Signed Impressions: Service Date/Time: Thursday, March 24, 2016 12:47 - CONCLUSION: 1. There is respiratory motion artifact but no PE is identified through most of the segmental level pulmonary arteries. 2. Mildly enlarged main pulmonary artery may indicate pulmonary arterial hypertension. 3. 11 mm left lower lobe noncalcified pulmonary nodule. Suggest correlation with any prior imaging studies that could confirm longer-term stability. If none are available consider short-term followup noncontrast chest CT in approximately 3 months. Ubaldo Rodas MD Chest X-Ray 05/03/16 0600 Signed Impressions: Service Date/Time: May 04:08 - CONCLUSION: 1. Subsegmental airspace disease in the lungs. Cardiomegaly. Kyle Lorenzo MD Abdomen X-Ray 05/01/16 0000 Signed Impressions: Service Date/Time: Sunday, May 01, 2016 17:28 - CONCLUSION: No evidence of obstruction. Feeding tube overlies the distal stomach, May have to be advanced slightly to reach the duodenum. Nick Jon MD Chest CT 03/28/16 0836 Signed Impressions: Service Date/Time: Monday, March 28, 2016 09:57 - CONCLUSION: Development areas of air bronchograms and consolidation more prominent in the right and left posterior basilar segments of the lower lobes. ET tube above the chanelle. Bernard Hartman MD CT Angiography 03/24/16 1121 Signed Impressions: Service Date/Time: Thursday, March 24, 2016 12:47 - CONCLUSION: 1. There is respiratory motion artifact but no PE is identified through most of the segmental level pulmonary arteries. 2. Mildly enlarged main pulmonary artery may indicate pulmonary arterial hypertension. 3. 11 mm left lower lobe noncalcified pulmonary nodule. Suggest correlation with any prior imaging studies that could confirm longer-term stability. If none are available consider short-term followup noncontrast chest CT in approximately 3 months. Ubaldo Rodas MD Physical Exam GENERAL: Awake and alert, obese, on the vent, not in distress SKIN: Warm and moist. No generalized rash or ecchymosis. HEENT: [place] conjunctivae, no petechia or hemorrhage. No scleral icterus. NECK: Large and thick. S/P trach, site ok; previous trach still open. CHEST: Coarse BS eufemia, equal breath sounds, wheezing on L side CARDIAC: regular rate and rhythm, no murmur ABDOMEN: soft, obese, (+) BS and normoactive, no tenderness, no guarding or rebound. : Becker in place, urine looks clear MUSCULOSKELETAL: Extremities without clubbing, cyanosis. Mild edema NEUROLOGICAL: Awake and interacting. No facial asymmetry, LUCRECIA, full EOM. Moves all extremities. No Babinski PSYCH: Awake, cooperative LINE: [facility] TLC with no evidence of infection : Becker in place, urine looks clear Assessment & Plan Remarks IMPRESSION Recurrent respiratory failure due to pulmonary edema - CXR better New PNA: PSAE and MSSA Fevers, etiology? - possible due to pulmonary, has PSAE and Staph aureus in sputum Leukocytosis, better Pneumonia, C/S MSSA, S/P Rx x 2 - last sputum 05/27 with MSSA JACOB Morbid obesity Allergy to PCN, swelling Hypotension RECOMMENDATION Follow C/S Monitor temps Monitor progress Continue Vanco and Diflucan Continue Cefepime which will cover PSAE and MSSA Will deescalate Abx if remains stable and nothing new on C/S Will monitor closely in case he gets a rection to Cefepime D/W Elisha Archer MD Jun 21, 2016 12:09
--- NOTE | 2016-06-21 13:25 | HHI.CCPN ---
Subjective Remarks/Hospital Course Patient is a 50 years old obese male with past medical history significant for undiagnosed sleep apnea, super morbid obesity, type 2 diabetes was brought to the emergency department on 03/24/16 after feeling light headed and dizzy. On presentation here was found to be hypoxemic and ABG showed severe hypoxemia and hypercarbia. For a recent driving physical he was diagnosed with low oxygen saturations. Patient's oxygen saturation the ED was in the low 80s, which was confirmed on ABG with a oxygen saturation of 78% and PO2 of 46. CTA negative for PE. Patient was initiated on BiPAP therapy with consult to pulmonary Dr. Crane. His oxygenation improved but he continued to be hypercapnic. Today a.m. on nasal cannula his pH was 7.26 and PCO2 was increased at 99, patient was somnolent was placed back on BiPAP and repeat ABG at noon showed pH 7.26 PCO2 98 and pO2 70. This was on 16 BiPAP with FiO2 50%. Critical care was consulted. On my evaluation patient is somnolent but wakes up easily. I reduced the PEEP on BiPAP from 12-7 to facilitate better ventilation. A repeat ANG showed only minimal improvement, so decision made to intubate patient. Glidescope with #4 blade was used. Only propofol was used for induction. Initially I had a Grade 1-2 view, but I was unable to pass tube through the vocal cord to trachea in two attempts. Tube slipped out of Laryngeal opening both times. Dr Garrett intubated patient after NM paralysis with succinylcholine. Post intubation ABG showed improvement in hypercapnia and oxygenation. 03/27/16: Patient remains intubated heavily sedated with propofol and fentanyl. Remained severely hypoxemic on 100% FiO2, PEEP12, chest x-ray shows bibasilar infiltrates. Flagyl added. We'll give 1 dose of vancomycin-Adjust antibiotics according to cultures. Patient super morbid obesity may prevent Prone therapy 03/28: Remains hypoxic but ABG shows marginal improvement in oxygenation. WBC increasing 20.1 today. Start vancomycin scheduled. 03/29: Oxygenation is slightly improved. FiO2 reduced to 50% today. Chest x- ray remains unchanged. On sedation hold patient does wake up and follow commands. WBC count remains at 20 03/30 No acute events overnight. Sedated with Diprivan and Fentanyl. Had T: 100.1 at 4 am. WBC trending down 15.9 today from 20. 03/31 Patient remains sedated with Diprivan, Fentanyl and intubated. Tmax 100.1. Patient required increase O2 overnight now on ACV with PEEP: 12 and FIO2 70%. 04/01: Tmax 99.7. No bowel movement since admission. Patient has bowel sounds. Arousable on the ventilator. We'll attempt prone the patient paralyzed to increase oxygenation status. 04/02: MAXIMUM TEMPERATURE 100.9. Currently 97.7. 5 10 cc stools overnight. Placed on Roto prone yesterday. Saturations currently 94% on Flolan. Diuresed overnight. Creatinine still within normal limits. 04/03: Tmax 101. Currently 99.1. Positive BM. Did not tolerate not being unprone this AM. Saturations much improved prone. Tolerating tube feeding. 04/04: Tmax 100.8. Currently 98.8. +2 L past 24 hours. Attempt to on prone today. Positive BM. C. difficile negative. Remains paralyzed. 04/05: Remains sedated, orally intubated on neuromuscular blockade on mechanical ventilation. Remains on Rota prone bed. On insulin drip. 04/06: Remains sedated, orally intubated on neuromuscular blockade, on mechanical ventilation. Remains on Rota prone bed. Insulin drip continues. 04/07 Patient remains on Rotoprone bed sedated with Diprivan, Versed, Fentanyl in addition patient is on Nimbex. Afebrile. On Insulin drip 5u/hr. 04/08 Patient remains sedated and intubated and on Nimbex. Off insulin drip. On PRVC/AC with RR 15, TV 550, IT: 1.65, PEEP: 15 and FIO2 100%. T: 100.2 at 4 am. 04/09 Patient is sedated, intubated and remains on neuromuscular blockade. Vent setting unchanged. afebrile. 04/10 Patient remains sedated and intubated and on Nimbex. On PRVC/AC, RR 15, TV 500, PEEP: 15, FIO2 90%, IT:1.65, on Flolan drip. Remains on Rotoprone bed. 04/11 minimal improvement in oxygenation, FiO2 now at 75 - continue to improve oxygenation, worsening CXR 04/13/10 continue to improve oxygenation DC'd prone position last night 04/14- improving oxygenation, Nimbex discontinued as well as prone position 04/16 Patient is sedated with Versed and Fentanyl and intubated. Off rotoprone bed. On PRVC/AC RR 15, TV 550, IT 1.65, PEEP:15, FIO2 50%. 04/17 Patient remains sedated with Versed and Fentanyl. Afebrile, tolerating tube feeds 04/18 No acute events overnight Sedated and intubated. Afebrile. On PRVC/AC RR 15 , TV 550, IT 1.65, PEEP:15, FIO2 60% 04/19: Spiking fever up to 101, pancultured and 1 dose of vancomycin given by ID. On weaning doses of Flolan. FiO2 down to 50% I have reduced PEEP to 14. Remains critically ill 04/20: No fever. Sputum cx with Staph -S pending. Fio2 50% PEEP remains at 14. TV increased to 650 to improve lung recruitment. On weaning dose of Flolan-DC after current bag 04/21:Afebrile. Hyponatremia resolving, the patient will be placed on free water flushes. 04/22:The patient had an episode of acute desaturation requiring FiO2 increased to 90%. Stat chest x-ray stat ABG aggressive pulmonary toileting and suctioning , resolution of symptoms FiO2 now 55%. ABGs within normal limits. 04/23: Tmax 99.5. Currently afebrile. O2 sat 50%. PEEP down to 13. One small bowel movement overnight. 04/24: Currently afebrile. O2 sat 45%. PEEP to 12. One BM. Tolerating tube feeds. 04/25: Afebrile. PEEP down to 11. Positive BM. Tolerating tube feeds. Awake on the ventilator with eyes open. 04/26: Afebrile. PEEP down to 10. Time to feeding. Awake and alert eyes open. 04/27: Suspected fever overnight. One bowel movement documented. Will decreased PEEP to 9. Awake and alert and follows commands. 04/28: Tmax 99.3. Currently afebrile. FiO2 increased to 70%. PEEP to 10. Awake and does follow commands. Positive BM 4 yesterday. 04/29: FiO2 down to 55%. Peak systolic 10. Awake and does follow commands. Positive BM 1 yesterday. Tolerating tube feeding. 04/30: No acute issues overnight . The patient continues to be sedated with plans for tracheostomy in the OR today. The patient follows commands when on sedation vacation. 05/01: Postop day 1 post tracheostomy tube placement, no issues overnight. Plan for CPAP trials today. 05/02: Afebrile. The patient continues on CPAP trial 15/5 , FiO2 .45%. The patient alert and responsive this a.m., continues on Precedex and fentanyl infusion. By mouth narcotics, and fentanyl patch instituted to transition all fentanyl infusion. PEG tube placement pending. 05/03: The patient's fentanyl infusion was discontinued last evening. Multimodal analgesia initiated. Patient continues on Precedex infusion, GCS 14 T. Plans today for PEG placement later on this afternoon. No acute issues overnight. 05/04 Tmax 101.0. The patient's PICC line was removed, peripheral IVs initiated. Blood, urine and sputum cultures obtained. Methylprednisolone continues to be weaned currently at 20 mg daily. Plan for weaning of Precedex infusion off today. Seroquel 25 mg twice a day added to medication regimen. The patient continues on CPAP trials. 05/05: Tmax 99.1. Overnight the patient was maintained on CPAP trials of 15/5/40% , the patient's respiratory rate continues to be low 30s, tolerated well. The sake early this a.m. the patient was noticed to have a episode of nausea and vomiting Zofran instituted. The patient continues on scheduled Reglan TID. Blood , sputum and urine cultures were obtained yesterday secondary to elevated temperature awaiting results. 05/06: The patient remains on T piece greater than 48 hours. The patient is alert oriented and cooperative. Trach site without erythema or drainage. Patient was noticed over the last 12 hours to have multiple bowel movements or in the night. Will D/C MiraLAX, lactulose and Reglan will be discontinued. Plan for possible transfer to LTAC facility. 05/07 no acute issues overnight tolerating TPs 05/27 shortly after midnight rapid response team was called due to patient's respiratory distress and hypercarbic respiratory failure with hypoxemia and cyanosis 05/27: Tracheostomy was exchanged this morning to a #6 Shiley fenestrated cuffed. Currently on PRVC with PEEP of 10. Saturations are much improved. Awake and alert and following commands. Requesting diet. 05/28: Awake and alert. On mechanical ventilation via tracheostomy. Following commands. 05/29: Awake and alert. On mechanical ventilation via tracheostomy. Tolerating PO diet. Following commands. 05/30: Awake and alert. On mechanical ventilation via tracheostomy. Tolerating by mouth diet. Following commands. 05/31: Remains on mechanical ventilation via tracheostomy. Tolerating C Pap/ pressure support. Following commands. Tolerating by mouth diet. 06/01: Remains on mechanical ventilation via tracheostomy. Awake and alert. Tolerated C Pap and pressure support however gets extremely tachypneic on dropping pressure-support to +5. Tolerating by mouth diet 06/02: Tmax 99.5. Currently 99. Currently on T piece trial. Condom catheter placed. 06/03: Currently T piece trial. Saturations around 98 %. Appears comfortable. He is in no acute distress. No issues overnight 06/12: Hypoxemic respiratory failure and difficulty bag ventilating. Rushed to ICU with acceptable sats and immediately intubated through the mouth. Trach tube removed. Good ventilation immediately restored. CXR with diffuse pulmonary edema - question negative pressure. 06/13: Persistent diffuse infiltrates, MSSA sputum, start abx. Hydrate for oliguria. Convert to APRV for recruitment. 06/14: CXR has cleared and well expanded on APRV. Will work to convert to conventional and revise trach. 06/15: CXR clear. MSSA colonized but fever persists. Treat. Need to revise trach. 06/16: Breathing comfortably on SBT 14/. Will work to extubation but will probably need a #8 trach replaced. 06/17: Awake and alert, remains orally intubated on mechanical ventilation. Daily C Pap trials. We will discuss with Dr. Rosenberg regarding replacing tracheostomy in OR. 06/18: Awake and alert, remains orally intubated on mechanical ventilation. Daily C Pap trials. Awaiting tracheostomy with Dr. Rosenberg in OR 06/19: complaining of headaches today. and right leg tingling. plan for possible trach today. 06/20: continues on low-dose norepinephrine. wbc downtrending. vanc/diflucan added yesterday. going for trach today in OR. Subjective 06/21: trach yesterday in OR. wbc downtrending. still on low-dose levophed, but blood cultures negative so far. Objective Vital Signs Date Time Temp Pulse Resp B/P Pulse Ox O2 Delivery O2 Flow Rate FiO2 06/21/16 12:52 45 06/21/16 12:32 90 06/21/16 12:00 99.7 81 25 99/53 06/21/16 11:45 T-Piece 9.00 Intake and Output 06/20/16 06/20/16 06/21/16 08:00 16:00 00:00 Intake Total 1100 ml 704 ml 1132 ml Output Total 1350 ml 1550 ml 1950 ml Balance -250 ml -846 ml -818 ml Result Diagram: 06/21/16 0342 06/21/16 0342 Imaging Last Impressions Chest X-Ray 05/28/16 0600 Signed Impressions: Service Date/Time: Saturday, May 28, 2016 04:49 - CONCLUSION: Unchanged bibasilar densities. Wale Dalal MD Liver Ultrasound 05/09/16 0000 Signed Impressions: Service Date/Time: Monday, May 09, 2016 22:28 - CONCLUSION: 1. Enlarged, fatty liver. 2. Small stones or tumefactive sludge adherent to one of the gallbladder arcos. 3. Splenomegaly. 4. Pancreas is obscured by overlying bowel gas and patient's body habitus. Arthur Kennedy MD Abdomen X-Ray 05/01/16 0000 Signed Impressions: Service Date/Time: Sunday, May 01, 2016 17:28 - CONCLUSION: No evidence of obstruction. Feeding tube overlies the distal stomach, May have to be advanced slightly to reach the duodenum. Nick Jon MD Chest CT 03/28/16 0836 Signed Impressions: Service Date/Time: Monday, March 28, 2016 09:57 - CONCLUSION: Development areas of air bronchograms and consolidation more prominent in the right and left posterior basilar segments of the lower lobes. ET tube above the chanelle. Bernard Hartman MD CT Angiography 03/24/16 1121 Signed Impressions: Service Date/Time: Thursday, March 24, 2016 12:47 - CONCLUSION: 1. There is respiratory motion artifact but no PE is identified through most of the segmental level pulmonary arteries. 2. Mildly enlarged main pulmonary artery may indicate pulmonary arterial hypertension. 3. 11 mm left lower lobe noncalcified pulmonary nodule. Suggest correlation with any prior imaging studies that could confirm longer-term stability. If none are available consider short-term followup noncontrast chest CT in approximately 3 months. Ubaldo Rodas MD Objective Remarks Gen: middle-aged super morbidly obese male, lying in bed, intubated. HEENT: nc. at. mucous membranes moist. orotracheally intubated. Neck: trach stoma with clear secretions. Chest: PRVC 16/500/5/45%. equal chest rise. CARDIOVASCULAR: Distant heart sounds, normal rate, regular rhythm. sinus by telemetry. Abd: Abdomen soft, obese, nontender. Severe central obesity, PEG tube site with thick yellowish drainage MUSCULOSKELETAL: Extremities with trace + nonpitting bilateral lower extremity edema. NEUROLOGICAL: Anxious, opens eyes, tracks.Moves 4 to command, tracks with eyes, nods head. Procedures 04/30/16 - tracheostomy by Dr. Reyes 05/03/16 - EGD with PEG placement by Dr. Faith 06/09/16 - PEG removal A/P Assessment and Plan Assessment: 50yM with super morbid obesity and acute on chronic respiratory failure, now requiring replacement of tracheostomy. Also severely deconditioned. we will work aggressively with physical therapy. s/p re-do trach in OR 06/20. From an infectious standpoint, remains in mild septic shock. will discuss with ID if new CVL is needed: blood cultures so far NGTD and we have a pneumonic source at this point. 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 Acetaminophen for fever or pain adjuvant. Pulm: Acute hypercarbic hypoxemic respiratory failure-resolved [facility] History of staph aureus pneumonia/HCAP ARDS Tracheostomy exchange to #6 Shiley fenestrated cuffed on 05/27 -> removed. Ventilator bundle Bronchodilator therapy every 6 hours With Atrovent nebs every 2 hours when necessary dyspnea Pulmonary Dr. Perry Re-intubation through mouth. Revise trachwith Dr. Cuellar 06/20 failing CPAP trials for tachypnea and hypoxia. CV: Monitor HR and BP keep MAP>65mmHg 2-D echo 03/26 EF 60%. No regional wall motion abnormality. Mild MR/TR. /FEN: Monitor renal function, I/O's, electrolytes replacement per protocol. GI: Constipation-resolved Moderate protein calorie malnutrition Nausea and vomiting Continue oral diet starting 05/29 Protonix 40mg daily Senna and Colace twice a day PEG tube placement- 05/03 Zofran 4 mg every 6 hours when necessary ID: Staph aureus pneumonia - resolved pseudomonas pneumonia MSSA pneumonia vanc, cefepime, diflucan Pertinent culture 06/20 - blood cx NGTD 06/15 - MSSA, PSAE 05/27 - sputum - MSSA 04/27 - pansensitive staph aureus 04/27 blood cultures 2 negative 04/25 - urine -no growth 04/19 - blood cultures 2 out of 4 - staph aureus 04/19 - sputum - staph aureus 04/08 - sputum - staph aureus 04/03 - sputum - staph aureus 03/30 - sputum- -staph aureus 03/27 - sputum - staph aureus 03/26 - blood - staph hominis On vancomycin 2 g IV every 12 are since 04/19 - 04/29 Azactam 04/27 through 04/29 Heme: Leukocytosis Monitor CBC/coags Monitor WBC bmp and cbc today. Endo: Diabetes mellitus SSI for glycemic control with sliding scale insulin every 4 hours Levemir insulin 5 U hs, q6h SSI MSK Morbid obesity Weight loss encouraged DVT, GI prophylaxis -Bilateral lower extremity SCDs. IV Protonix 40 mg daily. Lovenox 40 mg sq BID LINES: -New SCV Left CVL placed 06/12. -keep batista for now. Js Garrett MD Jun 21, 2016 13:25
[2016-06-21] MEDS: RESP: ALBUTEROL 2.5 MG/IPRATROPIUM 0.5 MG NEB (PRN) NEB (20:16)
[2016-06-21] MEDS: BETAMETHASONE/CLOTRIMAZOLE CREAM 15 GM TOPICAL SCH (20:41)
[2016-06-21] MEDS: NYSTATIN 100,000 U/GM PWD 15 GM BTL TOPICAL SCH (20:41)
[2016-06-21] MEDS: INSULIN DETEMIR 100 UNITS/ML VIAL SQ SCH (20:43)
[2016-06-22] VITALS (16 sets, daily range): BP systolic 89–120; BP diastolic 54–71; PULSE 70–91; RESP 17–24; TEMP 98.6–100; O2SAT 92–99
[2016-06-22] MEDS: POTASSIUM CHLORIDE INJ 10 MEQ in SODIUM CHLOR 0.9% 1000 ML INJ 1,000 ML IV SCH ×2 (00:24→12:46)
[2016-06-22] MEDS: CEFEPIME INJ 2,000 MG in SODIUM CHLORIDE 0.9% INJ 100 ML IV SCH ×3 (00:24→23:50)
[2016-06-22] MEDS ORDERED: PHARMACY ORDERED LAB ONE (00:45)
[2016-06-22] MEDS: ARTIFICIAL TEARS OPTH SOLN 15 ML BTL EACH EYE SCH ×6 (01:17→22:00)
[2016-06-22] MEDS: VANCOMYCIN INJ 2,000 MG in SODIUM CHLORID 0.9% 500 ML INJ 500 ML IV SCH ×2 (01:17→11:46)
[2016-06-22 04:52] LABS: HEMATOCRIT 29.5 % (39.0-51.0); MEAN CELL VOLUME 84.6 FL (80.0-100.0); MEAN CORPUSCULAR HEMOGLOBIN 28.7 PG (27.0-34.0); MEAN CORPUSCULAR HGB CONC 33.9 % (32.0-36.0); PLATELET COUNT 520 TH/MM3 (150-450); RED BLOOD COUNT 3.49 MIL/MM3 (4.50-5.90); RED CELL DISTRIBUTION WIDTH 17.7 % (11.6-17.2); REVIEW FLAG FINAL; WHITE BLOOD COUNT 16.3 TH/MM3 (4.0-11.0)
[2016-06-22 05:21] LABS: BICARBONATE 29.3 MEQ/L (21.0-32.0); POTASSIUM 3.7 MEQ/L (3.5-5.1)
[2016-06-22] MEDS: ENOXAPARIN SODIUM 40 MG/0.4 ML SYRINGE SQ SCH ×2 (06:18→17:27)
[2016-06-22] MEDS: INSULIN ASPART SUPPLEMENTAL SCALE SQ SCH ×3 (07:00→16:00)
[2016-06-22] MEDS: CHLORHEXIDINE 0.12% (ORAL KIT) 15 ML CUP MT SCH ×2 (08:00→20:37)
[2016-06-22] MEDS: BETAMETHASONE/CLOTRIMAZOLE CREAM 15 GM TOPICAL SCH ×2 (09:00→22:46)
[2016-06-22] MEDS: SODIUM CHLORIDE 0.9% FLUSH 5 ML FLUSH IVF SCH (09:00)
[2016-06-22] MEDS: NYSTATIN 100,000 U/GM PWD 15 GM BTL TOPICAL SCH ×2 (09:00→20:39)
[2016-06-22] MEDS: SILVER SULFADIAZINE 1% CR 400 GM JAR TOPICAL SCH (09:00)
[2016-06-22] MEDS: BENEPROTEIN POWDER 1 PACK G-TUBE SCH ×3 (09:00→17:28)
[2016-06-22] MEDS: SENNOSIDES SYRUP 8.8 MG/5 ML CUP PO/TUBE SCH ×2 (09:00→20:38)
[2016-06-22] MEDS: POLYETHYLENE GLYCOL 17 GM PKG PO SCH ×2 (09:00→20:38)
[2016-06-22] MEDS: PANTOPRAZOLE SOD 40 MG DELAYED RELEASE TAB PO SCH (09:10)
[2016-06-22] MEDS: POTASSIUM CHLORIDE 10 MEQ CONTROLLED RELEASE TAB PO SCH (09:10)
[2016-06-22] MEDS: LACTOBACILLUS ACIDOPHILUS TAB PO SCH ×3 (09:10→17:27)
[2016-06-22] MEDS: PREGABALIN 75 MG CAP PO SCH ×2 (09:10→20:38)
[2016-06-22] MEDS: BACLOFEN 10 MG TAB PO SCH (09:10)
[2016-06-22] MEDS: DOCUSATE SODIUM 100 MG/10 ML UDC PO SCH ×2 (09:11→20:38)
--- NOTE | 2016-06-22 09:11 | HHI.PR ---
Subjective Remarks acute respiratory failure back on vent. support tracheostomy done Objective Vital Signs Date Time Temp Pulse Resp B/P Pulse Ox O2 Delivery O2 Flow Rate FiO2 06/22/16 09:04 95 Ventilator 45 06/22/16 09:02 95 45 06/22/16 06:00 91 06/22/16 04:08 97 54 06/22/16 04:00 45 06/22/16 04:00 85 06/22/16 04:00 100.0 85 20 120/71 96 06/22/16 02:00 84 06/22/16 00:11 95 45 06/22/16 00:00 84 06/22/16 00:00 45 06/22/16 00:00 99.9 84 21 109/59 96 06/21/16 22:00 97 06/21/16 20:09 99 45 06/21/16 20:00 45 06/21/16 20:00 78 06/21/16 20:00 99.7 80 21 103/59 99 06/21/16 19:00 96 Mechanical Ventilator 45 06/21/16 16:42 98 45 06/21/16 16:00 99.6 83 24 99/58 96 06/21/16 16:00 45 06/21/16 13:30 95 40 06/21/16 12:52 45 06/21/16 12:40 40 06/21/16 12:32 90 40 06/21/16 12:00 99.7 81 25 99/53 97 06/21/16 12:00 81 06/21/16 11:58 25 06/21/16 11:45 93 T-Piece 9.00 40 06/21/16 11:45 92 T-piece 6.00 40 06/21/16 10:06 94 40 I/O 06/21/16 06/21/16 06/21/16 06/22/16 06/22/16 06/22/16 07:00 15:00 23:00 07:00 15:00 23:00 Intake Total 1025 ml 789 ml 1350 ml 1069 ml Output Total 1700 ml 2150 ml 2000 ml 1100 ml Balance -675 ml -1361 ml -650 ml -31 ml Intake Oral 120 ml 240 ml 0 ml IV Total 1025 ml 669 ml 1110 ml 1069 ml Output Urine Total 1700 ml 2150 ml 2000 ml 1100 ml # Bowel Movements 2 2 0 0 Result Diagram: 06/22/16 0415 06/22/16 0415 Objective Remarks GENERAL: SKIN: Warm and dry.on vent support HEAD: Atraumatic. Normocephalic. EYES: Pupils equal and round. No scleral icterus. No injection or drainage. ENT: No nasal bleeding or discharge. Mucous membranes pink and moist. NECK: Trachea midline. No JVD. CARDIOVASCULAR: Regular rate and rhythm. RESPIRATORY: No accessory muscle use. Clear to auscultation. Breath sounds equal bilaterally. GASTROINTESTINAL: Abdomen soft, non-tender, nondistended. Hepatic and splenic margins not palpable. MUSCULOSKELETAL: Extremities without clubbing, cyanosis, or edema. No obvious deformities. NEUROLOGICAL: Awake and alert. No obvious cranial nerve deficits. Motor grossly within normal limits. Five out of 5 muscle strength in the arms and legs. Normal speech. PSYCHIATRIC: Appropriate mood and affect; insight and judgment normal. Assessment and Plan Assessment and Plan respiratory failure morbid obesity plan vent support pulm toilet prognosis guarded Orlando Perry MD Jun 22, 2016 09:11
[2016-06-22] MEDS: FLUCONAZOLE 400 MG PREMIX BAG 200 ML IV SCH (09:12)
--- NOTE | 2016-06-22 09:49 | MP ---
cc: RNEETTA STOKES MD DATE OF SURGERY: 06/20/2016 PREOPERATIVE DIAGNOSIS: Respiratory failure, morbid obesity. POSTOPERATIVE DIAGNOSIS: Respiratory failure, morbid obesity. PROCEDURE: Redo tracheostomy with combination of open and blue rhino. SURGEON: Renetta Stokes MD. ANESTHESIA: General. ESTIMATED BLOOD LOSS: 5 CC. PROCEDURE: The patient prepped and draped usual fashion and the site of previous tracheostomy is encountered. There is a granulation tissue in this area. This was excised with cautery and then the area was cauterized controlling small bleeds. At this point the arm retractors were placed and retracted laterally with a right-angle the tissues were with cautery down to the trachea. Isthmus of the thyroid gland is divided with cautery and trachea exposed. The rest of the procedure is now done with blue rhino the tracheal hook is inserted under cricoid cartilage and this was held by the captain assistant up to have a control of the trachea, needle and angiocatheter was inserted into the trachea, between the second and third ring and then through the Angiocath guidewire was inserted in procedure followed with bronchoscopy, performed by anesthesia. The endotracheal tube is of course withdrawn to the adequate level to visualize the procedure. Over the guidewire punch dilator was placed and then second blue rhino dilator was placed and after that the a Charley cuff cannula is inserted suture placed with 2-0 Prolene, end-tidal CO2 obtained and checked and dressing applied. The patient was procedure well. Renetta VALVERDE/papa /3:37 PM /9:11 AM
[2016-06-22] MEDS: oxyCODONE HCL ORAL CONC 20 MG/ML SYRINGE PO PRN (12:28)
--- NOTE | 2016-06-22 14:06 | HHI.IDPN ---
Subjective Subjective Remarks Notes reviewed S/P trach Temps better On the vent Sputum with PSAE and MSSA WBC stable Patient is a 50-year-old male admitted to the hospital for shortness of breath. There is a history of possible sleep apnea, and he has morbid obesity as well as diabetes. Patient . remained on the vent and he underwent tracheostomy May 01, 2016. He was treated several times for MSSA pneumonia. He was being followed from the ID standpoint, and we signed off the case on May 08. At that time he had completed a course of antibiotics for his pneumonia. He was also doing well and tolerating T piece, and has been off the respirator. Antibiotics Cefepime Lines [facility] [place] [facility] - 06/12 Past Medical History Reviewed Allergies: Coded Allergies: Penicillin (Verified Allergy, Severe, Swelling, 03/24/16) Tetanus Toxoid (Verified Allergy, Unknown, Swelling, 03/24/16) Objective . Vital Signs Date Time Temp Pulse Resp B/P Pulse Ox O2 Delivery O2 Flow Rate FiO2 06/22/16 12:43 94 45 06/22/16 12:00 45 06/22/16 12:00 99.9 80 17 105/59 93 06/22/16 09:04 95 Ventilator 45 06/22/16 09:02 95 45 06/22/16 08:00 98 Mechanical Ventilator 45 06/22/16 08:00 99.7 88 24 107/58 98 06/22/16 08:00 45 06/22/16 06:00 91 06/22/16 04:08 97 54 06/22/16 04:00 45 06/22/16 04:00 85 06/22/16 04:00 100.0 85 20 120/71 96 06/22/16 02:00 84 06/22/16 00:11 95 45 06/22/16 00:00 84 06/22/16 00:00 45 06/22/16 00:00 99.9 84 21 109/59 96 06/21/16 22:00 97 06/21/16 20:09 99 45 06/21/16 20:00 45 06/21/16 20:00 78 06/21/16 20:00 99.7 80 21 103/59 99 06/21/16 19:00 96 Mechanical Ventilator 45 06/21/16 16:42 98 45 06/21/16 16:00 99.6 83 24 99/58 96 06/21/16 16:00 45 06/21/16 06/21/16 06/22/16 15:00 23:00 07:00 Intake Total 789 ml 1350 ml 1069 ml Output Total 2150 ml 2000 ml 1100 ml Balance -1361 ml -650 ml -31 ml Intake Oral 120 ml 240 ml 0 ml IV Total 669 ml 1110 ml 1069 ml Output Urine Total 2150 ml 2000 ml 1100 ml # Bowel Movements 2 0 0 . Laboratory Tests Test 06/20/16 06/21/16 06/22/16 17:05 03:42 04:15 White Blood Count 17.6 TH/MM3 15.8 TH/MM3 16.3 TH/MM3 Red Blood Count 3.36 MIL/MM3 3.34 MIL/MM3 3.49 MIL/MM3 Hemoglobin 9.6 GM/DL 9.2 GM/DL 10.0 GM/DL Hematocrit 29.0 % 28.5 % 29.5 % Mean Corpuscular Volume 86.1 FL 85.4 FL 84.6 FL Mean Corpuscular Hemoglobin 28.5 PG 27.5 PG 28.7 PG Mean Corpuscular Hemoglobin 33.1 % 32.1 % 33.9 % Concent Red Cell Distribution Width 18.3 % 18.2 % 17.7 % Platelet Count 443 TH/MM3 474 TH/MM3 520 TH/MM3 Mean Platelet Volume 8.0 FL 7.9 FL 7.9 FL Laboratory Tests Test 06/20/16 06/21/16 06/22/16 17:05 03:42 04:15 Sodium Level 139 MEQ/L 139 MEQ/L 137 MEQ/L Potassium Level 4.0 MEQ/L 3.8 MEQ/L 3.7 MEQ/L Chloride Level 105 MEQ/L 102 MEQ/L 98 MEQ/L Carbon Dioxide Level 27.5 MEQ/L 29.5 MEQ/L 29.3 MEQ/L Anion Gap 7 MEQ/L 8 MEQ/L 10 MEQ/L Blood Urea Nitrogen 6 MG/DL 6 MG/DL 4 MG/DL Creatinine 0.35 MG/DL 0.30 MG/DL 0.34 MG/DL Estimat Glomerular Filtration 266 ML/MIN 317 ML/MIN 275 ML/MIN Rate Random Glucose 99 MG/DL 76 MG/DL 88 MG/DL Calcium Level 8.6 MG/DL 8.4 MG/DL 8.7 MG/DL Microbiology Date/Time Procedure Status Source Growth 06/20/16 11:40 Aerobic Blood Culture - Preliminary Resulted Blood Peripheral NO GROWTH IN 2 DAYS 06/20/16 11:40 Anaerobic Blood Culture - Preliminary Resulted Blood Peripheral NO GROWTH IN 2 DAYS 06/20/16 11:49 Aerobic Blood Culture - Preliminary Resulted Blood Peripheral NO GROWTH IN 2 DAYS 06/20/16 11:49 Anaerobic Blood Culture - Preliminary Resulted Blood Peripheral NO GROWTH IN 2 DAYS Imaging Abdomen X-Ray 06/19/16 0000 Signed Impressions: Service Date/Time: Sunday, June 19, 2016 10:43 - CONCLUSION: Gastric tube tip does not cross the diaphragm and the side port is approximately 8 cm above the diaphragm. Chano Goodwin MD Chest X-Ray 06/14/16 0400 Signed Impressions: Service Date/Time: June 03:48 - CONCLUSION: Significant improvement of the lungs with minimal residual disease the right lower lobe. Wale Dalal MD Abdomen X-Ray 06/12/16 0000 Signed Impressions: Service Date/Time: Sunday, June 12, 2016 17:57 - CONCLUSION: 1. Nasogastric tube in place with the tip projected over the distal stomach. 2. Unremarkable bowel gas pattern. Genaro Garcia MD Lower Extremity Ultrasound 06/04/16 0000 Signed Impressions: Service Date/Time: Saturday, June 04, 2016 14:54 - CONCLUSION: 1. No DVT identified. Dc Barton MD Liver Ultrasound 05/09/16 0000 Signed Impressions: Service Date/Time: Monday, May 09, 2016 22:28 - CONCLUSION: 1. Enlarged, fatty liver. 2. Small stones or tumefactive sludge adherent to one of the gallbladder arcos. 3. Splenomegaly. 4. Pancreas is obscured by overlying bowel gas and patient's body habitus. Arthur Kennedy MD Chest CT 03/28/16 0836 Signed Impressions: Service Date/Time: Monday, March 28, 2016 09:57 - CONCLUSION: Development areas of air bronchograms and consolidation more prominent in the right and left posterior basilar segments of the lower lobes. ET tube above the chanelle. Bernard Hartman MD CT Angiography 03/24/16 1121 Signed Impressions: Service Date/Time: Thursday, March 24, 2016 12:47 - CONCLUSION: 1. There is respiratory motion artifact but no PE is identified through most of the segmental level pulmonary arteries. 2. Mildly enlarged main pulmonary artery may indicate pulmonary arterial hypertension. 3. 11 mm left lower lobe noncalcified pulmonary nodule. Suggest correlation with any prior imaging studies that could confirm longer-term stability. If none are available consider short-term followup noncontrast chest CT in approximately 3 months. Ubaldo Rodas MD Chest X-Ray 05/03/16 0600 Signed Impressions: Service Date/Time: May 04:08 - CONCLUSION: 1. Subsegmental airspace disease in the lungs. Cardiomegaly. Kyle Lorenzo MD Abdomen X-Ray 05/01/16 0000 Signed Impressions: Service Date/Time: Sunday, May 01, 2016 17:28 - CONCLUSION: No evidence of obstruction. Feeding tube overlies the distal stomach, May have to be advanced slightly to reach the duodenum. Nick Jon MD Chest CT 03/28/16 0836 Signed Impressions: Service Date/Time: Monday, March 28, 2016 09:57 - CONCLUSION: Development areas of air bronchograms and consolidation more prominent in the right and left posterior basilar segments of the lower lobes. ET tube above the chanelle. Bernard Hartman MD CT Angiography 03/24/16 1121 Signed Impressions: Service Date/Time: Thursday, March 24, 2016 12:47 - CONCLUSION: 1. There is respiratory motion artifact but no PE is identified through most of the segmental level pulmonary arteries. 2. Mildly enlarged main pulmonary artery may indicate pulmonary arterial hypertension. 3. 11 mm left lower lobe noncalcified pulmonary nodule. Suggest correlation with any prior imaging studies that could confirm longer-term stability. If none are available consider short-term followup noncontrast chest CT in approximately 3 months. Ubaldo Rodas MD Physical Exam GENERAL: Awake and alert, obese, on the vent, not in distress SKIN: Warm and moist. No generalized rash or ecchymosis. HEENT: Stites conjunctivae, no petechia or hemorrhage. No scleral icterus. NECK: Large and thick. S/P trach, site ok; previous trach still open. CHEST: Coarse BS eufemia, equal breath sounds, wheezing on L side CARDIAC: regular rate and rhythm, no murmur ABDOMEN: soft, obese, (+) BS and normoactive, no tenderness, no guarding or rebound. : Becker in place, urine looks clear MUSCULOSKELETAL: Extremities without clubbing, cyanosis. Mild edema NEUROLOGICAL: Awake and interacting. No facial asymmetry, LUCRECIA, full EOM. Moves all extremities. No Babinski PSYCH: Awake, cooperative LINE: LSC TLC with no evidence of infection : Becker in place, urine looks clear Assessment & Plan Remarks IMPRESSION Recurrent respiratory failure due to pulmonary edema - CXR better New PNA: PSAE and MSSA Fevers, etiology? - possible due to pulmonary, has PSAE and Staph aureus in sputum Leukocytosis, stable Pneumonia, C/S MSSA, S/P Rx x 2 JACOB Morbid obesity Allergy to PCN, swelling Hypotension RECOMMENDATION Follow C/S Monitor temps Monitor progress Continue Cefepime which will cover PSAE and MSSA - give 7 days Stop Vanco Stop Diflucan Weaning from vent per [facility] Elisha Painter MD Jun 22, 2016 14:06
--- NOTE | 2016-06-22 18:03 | HHI.CCPN ---
Subjective Remarks/Hospital Course Patient is a 50 years old obese male with past medical history significant for undiagnosed sleep apnea, super morbid obesity, type 2 diabetes was brought to the emergency department on 03/24/16 after feeling light headed and dizzy. On presentation here was found to be hypoxemic and ABG showed severe hypoxemia and hypercarbia. For a recent driving physical he was diagnosed with low oxygen saturations. Patient's oxygen saturation the ED was in the low 80s, which was confirmed on ABG with a oxygen saturation of 78% and PO2 of 46. CTA negative for PE. Patient was initiated on BiPAP therapy with consult to pulmonary Dr. Crane. His oxygenation improved but he continued to be hypercapnic. Today a.m. on nasal cannula his pH was 7.26 and PCO2 was increased at 99, patient was somnolent was placed back on BiPAP and repeat ABG at noon showed pH 7.26 PCO2 98 and pO2 70. This was on 16 BiPAP with FiO2 50%. Critical care was consulted. On my evaluation patient is somnolent but wakes up easily. I reduced the PEEP on BiPAP from 12-7 to facilitate better ventilation. A repeat ANG showed only minimal improvement, so decision made to intubate patient. Glidescope with #4 blade was used. Only propofol was used for induction. Initially I had a Grade 1-2 view, but I was unable to pass tube through the vocal cord to trachea in two attempts. Tube slipped out of Laryngeal opening both times. Dr Garrett intubated patient after NM paralysis with succinylcholine. Post intubation ABG showed improvement in hypercapnia and oxygenation. 03/27/16: Patient remains intubated heavily sedated with propofol and fentanyl. Remained severely hypoxemic on 100% FiO2, PEEP12, chest x-ray shows bibasilar infiltrates. Flagyl added. We'll give 1 dose of vancomycin-Adjust antibiotics according to cultures. Patient super morbid obesity may prevent Prone therapy 03/28: Remains hypoxic but ABG shows marginal improvement in oxygenation. WBC increasing 20.1 today. Start vancomycin scheduled. 03/29: Oxygenation is slightly improved. FiO2 reduced to 50% today. Chest x- ray remains unchanged. On sedation hold patient does wake up and follow commands. WBC count remains at 20 03/30 No acute events overnight. Sedated with Diprivan and Fentanyl. Had T: 100.1 at 4 am. WBC trending down 15.9 today from 20. 03/31 Patient remains sedated with Diprivan, Fentanyl and intubated. Tmax 100.1. Patient required increase O2 overnight now on ACV with PEEP: 12 and FIO2 70%. 04/01: Tmax 99.7. No bowel movement since admission. Patient has bowel sounds. Arousable on the ventilator. We'll attempt prone the patient paralyzed to increase oxygenation status. 04/02: MAXIMUM TEMPERATURE 100.9. Currently 97.7. 5 10 cc stools overnight. Placed on Roto prone yesterday. Saturations currently 94% on Flolan. Diuresed overnight. Creatinine still within normal limits. 04/03: Tmax 101. Currently 99.1. Positive BM. Did not tolerate not being unprone this AM. Saturations much improved prone. Tolerating tube feeding. 04/04: Tmax 100.8. Currently 98.8. +2 L past 24 hours. Attempt to on prone today. Positive BM. C. difficile negative. Remains paralyzed. 04/05: Remains sedated, orally intubated on neuromuscular blockade on mechanical ventilation. Remains on Rota prone bed. On insulin drip. 04/06: Remains sedated, orally intubated on neuromuscular blockade, on mechanical ventilation. Remains on Rota prone bed. Insulin drip continues. 04/07 Patient remains on Rotoprone bed sedated with Diprivan, Versed, Fentanyl in addition patient is on Nimbex. Afebrile. On Insulin drip 5u/hr. 04/08 Patient remains sedated and intubated and on Nimbex. Off insulin drip. On PRVC/AC with RR 15, TV 550, IT: 1.65, PEEP: 15 and FIO2 100%. T: 100.2 at 4 am. 04/09 Patient is sedated, intubated and remains on neuromuscular blockade. Vent setting unchanged. afebrile. 04/10 Patient remains sedated and intubated and on Nimbex. On PRVC/AC, RR 15, TV 500, PEEP: 15, FIO2 90%, IT:1.65, on Flolan drip. Remains on Rotoprone bed. 04/11 minimal improvement in oxygenation, FiO2 now at 75 - continue to improve oxygenation, worsening CXR 04/13/10 continue to improve oxygenation DC'd prone position last night 04/14- improving oxygenation, Nimbex discontinued as well as prone position 04/16 Patient is sedated with Versed and Fentanyl and intubated. Off rotoprone bed. On PRVC/AC RR 15, TV 550, IT 1.65, PEEP:15, FIO2 50%. 04/17 Patient remains sedated with Versed and Fentanyl. Afebrile, tolerating tube feeds 04/18 No acute events overnight Sedated and intubated. Afebrile. On PRVC/AC RR 15 , TV 550, IT 1.65, PEEP:15, FIO2 60% 04/19: Spiking fever up to 101, pancultured and 1 dose of vancomycin given by ID. On weaning doses of Flolan. FiO2 down to 50% I have reduced PEEP to 14. Remains critically ill 04/20: No fever. Sputum cx with Staph -S pending. Fio2 50% PEEP remains at 14. TV increased to 650 to improve lung recruitment. On weaning dose of Flolan-DC after current bag 04/21:Afebrile. Hyponatremia resolving, the patient will be placed on free water flushes. 04/22:The patient had an episode of acute desaturation requiring FiO2 increased to 90%. Stat chest x-ray stat ABG aggressive pulmonary toileting and suctioning , resolution of symptoms FiO2 now 55%. ABGs within normal limits. 04/23: Tmax 99.5. Currently afebrile. O2 sat 50%. PEEP down to 13. One small bowel movement overnight. 04/24: Currently afebrile. O2 sat 45%. PEEP to 12. One BM. Tolerating tube feeds. 04/25: Afebrile. PEEP down to 11. Positive BM. Tolerating tube feeds. Awake on the ventilator with eyes open. 04/26: Afebrile. PEEP down to 10. Time to feeding. Awake and alert eyes open. 04/27: Suspected fever overnight. One bowel movement documented. Will decreased PEEP to 9. Awake and alert and follows commands. 04/28: Tmax 99.3. Currently afebrile. FiO2 increased to 70%. PEEP to 10. Awake and does follow commands. Positive BM 4 yesterday. 04/29: FiO2 down to 55%. Peak systolic 10. Awake and does follow commands. Positive BM 1 yesterday. Tolerating tube feeding. 04/30: No acute issues overnight . The patient continues to be sedated with plans for tracheostomy in the OR today. The patient follows commands when on sedation vacation. 05/01: Postop day 1 post tracheostomy tube placement, no issues overnight. Plan for CPAP trials today. 05/02: Afebrile. The patient continues on CPAP trial 15/5 , FiO2 .45%. The patient alert and responsive this a.m., continues on Precedex and fentanyl infusion. By mouth narcotics, and fentanyl patch instituted to transition all fentanyl infusion. PEG tube placement pending. 05/03: The patient's fentanyl infusion was discontinued last evening. Multimodal analgesia initiated. Patient continues on Precedex infusion, GCS 14 T. Plans today for PEG placement later on this afternoon. No acute issues overnight. 05/04 Tmax 101.0. The patient's PICC line was removed, peripheral IVs initiated. Blood, urine and sputum cultures obtained. Methylprednisolone continues to be weaned currently at 20 mg daily. Plan for weaning of Precedex infusion off today. Seroquel 25 mg twice a day added to medication regimen. The patient continues on CPAP trials. 05/05: Tmax 99.1. Overnight the patient was maintained on CPAP trials of 15/5/40% , the patient's respiratory rate continues to be low 30s, tolerated well. The sake early this a.m. the patient was noticed to have a episode of nausea and vomiting Zofran instituted. The patient continues on scheduled Reglan TID. Blood , sputum and urine cultures were obtained yesterday secondary to elevated temperature awaiting results. 05/06: The patient remains on T piece greater than 48 hours. The patient is alert oriented and cooperative. Trach site without erythema or drainage. Patient was noticed over the last 12 hours to have multiple bowel movements or in the night. Will D/C MiraLAX, lactulose and Reglan will be discontinued. Plan for possible transfer to LTAC facility. 05/07 no acute issues overnight tolerating TPs 05/27 shortly after midnight rapid response team was called due to patient's respiratory distress and hypercarbic respiratory failure with hypoxemia and cyanosis 05/27: Tracheostomy was exchanged this morning to a #6 Shiley fenestrated cuffed. Currently on PRVC with PEEP of 10. Saturations are much improved. Awake and alert and following commands. Requesting diet. 05/28: Awake and alert. On mechanical ventilation via tracheostomy. Following commands. 05/29: Awake and alert. On mechanical ventilation via tracheostomy. Tolerating PO diet. Following commands. 05/30: Awake and alert. On mechanical ventilation via tracheostomy. Tolerating by mouth diet. Following commands. 05/31: Remains on mechanical ventilation via tracheostomy. Tolerating C Pap/ pressure support. Following commands. Tolerating by mouth diet. 06/01: Remains on mechanical ventilation via tracheostomy. Awake and alert. Tolerated C Pap and pressure support however gets extremely tachypneic on dropping pressure-support to +5. Tolerating by mouth diet 06/02: Tmax 99.5. Currently 99. Currently on T piece trial. Condom catheter placed. 06/03: Currently T piece trial. Saturations around 98 %. Appears comfortable. He is in no acute distress. No issues overnight 06/12: Hypoxemic respiratory failure and difficulty bag ventilating. Rushed to ICU with acceptable sats and immediately intubated through the mouth. Trach tube removed. Good ventilation immediately restored. CXR with diffuse pulmonary edema - question negative pressure. 06/13: Persistent diffuse infiltrates, MSSA sputum, start abx. Hydrate for oliguria. Convert to APRV for recruitment. 06/14: CXR has cleared and well expanded on APRV. Will work to convert to conventional and revise trach. 06/15: CXR clear. MSSA colonized but fever persists. Treat. Need to revise trach. 06/16: Breathing comfortably on SBT 14/. Will work to extubation but will probably need a #8 trach replaced. 06/17: Awake and alert, remains orally intubated on mechanical ventilation. Daily C Pap trials. We will discuss with Dr. Rosenberg regarding replacing tracheostomy in OR. 06/18: Awake and alert, remains orally intubated on mechanical ventilation. Daily C Pap trials. Awaiting tracheostomy with Dr. Rosenberg in OR 06/19: complaining of headaches today. and right leg tingling. plan for possible trach today. 06/20: continues on low-dose norepinephrine. wbc downtrending. vanc/diflucan added yesterday. going for trach today in OR. 06/21: trach yesterday in OR. wbc downtrending. still on low-dose levophed, but blood cultures negative so far. Subjective 06/22: off levophed. blood cultures negative x 48h. Objective Vital Signs Date Time Temp Pulse Resp B/P Pulse Ox O2 Delivery O2 Flow Rate FiO2 06/22/16 17:04 45 06/22/16 16:33 96 06/22/16 16:00 99.9 89 18 99/56 06/22/16 09:04 Ventilator 06/21/16 11:45 9.00 Intake and Output 06/21/16 06/21/16 06/22/16 08:00 16:00 00:00 Intake Total 1025 ml 789 ml 1350 ml Output Total 1700 ml 2150 ml 2000 ml Balance -675 ml -1361 ml -650 ml Result Diagram: 06/22/16 0415 06/22/16 0415 Imaging Last Impressions Chest X-Ray 05/28/16 0600 Signed Impressions: Service Date/Time: Saturday, May 28, 2016 04:49 - CONCLUSION: Unchanged bibasilar densities. Wale Dalal MD Liver Ultrasound 05/09/16 0000 Signed Impressions: Service Date/Time: Monday, May 09, 2016 22:28 - CONCLUSION: 1. Enlarged, fatty liver. 2. Small stones or tumefactive sludge adherent to one of the gallbladder arcos. 3. Splenomegaly. 4. Pancreas is obscured by overlying bowel gas and patient's body habitus. Arthur Kennedy MD Abdomen X-Ray 05/01/16 0000 Signed Impressions: Service Date/Time: Sunday, May 01, 2016 17:28 - CONCLUSION: No evidence of obstruction. Feeding tube overlies the distal stomach, May have to be advanced slightly to reach the duodenum. Nick Jon MD Chest CT 03/28/16 0836 Signed Impressions: Service Date/Time: Monday, March 28, 2016 09:57 - CONCLUSION: Development areas of air bronchograms and consolidation more prominent in the right and left posterior basilar segments of the lower lobes. ET tube above the chanelle. Bernard Hartman MD CT Angiography 03/24/16 1121 Signed Impressions: Service Date/Time: Thursday, March 24, 2016 12:47 - CONCLUSION: 1. There is respiratory motion artifact but no PE is identified through most of the segmental level pulmonary arteries. 2. Mildly enlarged main pulmonary artery may indicate pulmonary arterial hypertension. 3. 11 mm left lower lobe noncalcified pulmonary nodule. Suggest correlation with any prior imaging studies that could confirm longer-term stability. If none are available consider short-term followup noncontrast chest CT in approximately 3 months. Ubaldo Rodas MD Objective Remarks Gen: middle-aged super morbidly obese male, lying in bed, trached HEENT: nc. at. mucous membranes moist. orotracheally intubated. Neck: trach with clear secretions. Chest: PRVC. equal chest rise. CARDIOVASCULAR: Distant heart sounds, normal rate, regular rhythm. sinus by telemetry. Abd: Abdomen soft, obese, nontender. Severe central obesity, PEG tube site with thick yellowish drainage MUSCULOSKELETAL: Extremities with trace + nonpitting bilateral lower extremity edema. NEUROLOGICAL: Anxious, opens eyes, tracks.Moves 4 to command, tracks with eyes, nods head. Procedures 04/30/16 - tracheostomy by Dr. Reyes 05/03/16 - EGD with PEG placement by Dr. Faith 06/09/16 - PEG removal A/P Assessment and Plan Assessment: 50yM with super morbid obesity and acute on chronic respiratory failure, now requiring replacement of tracheostomy. Also severely deconditioned. we will work aggressively with physical therapy. s/p re-do trach in OR 06/20. Now improving from shock state. 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 Pulm: Acute hypercarbic hypoxemic respiratory failure-resolved JACOB [facility] History of staph aureus pneumonia/HCAP ARDS Tracheostomy exchange to #6 Shiley fenestrated cuffed on 05/27 -> removed. Ventilator bundle Bronchodilator therapy every 6 hours With Atrovent nebs every 2 hours when necessary dyspnea Pulmonary Dr. Perry Re-intubation through mouth. Revise trach with Dr. Cuellar 06/20 failing CPAP trials for tachypnea and hypoxia. CV: Monitor HR and BP keep MAP>65mmHg 2-D echo 03/26 EF 60%. No regional wall motion abnormality. Mild MR/TR. /FEN: Monitor renal function, I/O's, electrolytes replacement per protocol. GI: Constipation-resolved Moderate protein calorie malnutrition Nausea and vomiting Continue oral diet starting 05/29 Protonix 40mg daily Senna and Colace twice a day PEG tube placement- 05/03 Zofran 4 mg every 6 hours when necessary ID: Staph aureus pneumonia - resolved pseudomonas pneumonia MSSA pneumonia d/c vanc, diflucan cefepime x 7 days. Pertinent culture 06/20 - blood cx NGTD 06/15 - MSSA, PSAE 05/27 - sputum - MSSA 04/27 - pansensitive staph aureus 04/27 blood cultures 2 negative 04/25 - urine -no growth 04/19 - blood cultures 2 out of 4 - staph aureus 04/19 - sputum - staph aureus 04/08 - sputum - staph aureus 04/03 - sputum - staph aureus 03/30 - sputum- -staph aureus 03/27 - sputum - staph aureus 03/26 - blood - staph hominis On vancomycin 2 g IV every 12 are since 04/19 - 04/29 Azactam 04/27 through 04/29 Heme: Leukocytosis Monitor CBC/coags Monitor WBC Endo: Diabetes mellitus SSI for glycemic control with sliding scale insulin every 4 hours Levemir insulin 5 U hs, q6h SSI MSK Morbid obesity Weight loss encouraged DVT, GI prophylaxis -Bilateral lower extremity SCDs. IV Protonix 40 mg daily. Lovenox 40 mg sq BID LINES: -New SCV Left CVL placed 06/12. will obtain piv and d/c cvl. -keep batista for now. Js Garrett MD Jun 22, 2016 18:03
[2016-06-22] MEDS: INSULIN DETEMIR 100 UNITS/ML VIAL SQ SCH (20:50)
[2016-06-23] VITALS (12 sets, daily range): BP systolic 93–107; BP diastolic 53–75; PULSE 74–112; RESP 22–36; TEMP 99.3–100.8; O2SAT 92–100
[2016-06-23] MEDS: ARTIFICIAL TEARS OPTH SOLN 15 ML BTL EACH EYE SCH ×6 (02:00→22:31)
[2016-06-23 04:57] LABS: HEMATOCRIT 29.8 % (39.0-51.0); MEAN CELL VOLUME 85.8 FL (80.0-100.0); MEAN CORPUSCULAR HEMOGLOBIN 28.1 PG (27.0-34.0); MEAN CORPUSCULAR HGB CONC 32.7 % (32.0-36.0); PLATELET COUNT 476 TH/MM3 (150-450); RED BLOOD COUNT 3.47 MIL/MM3 (4.50-5.90); RED CELL DISTRIBUTION WIDTH 17.6 % (11.6-17.2); REVIEW FLAG FINAL; WHITE BLOOD COUNT 15.9 TH/MM3 (4.0-11.0)
[2016-06-23 05:21] LABS: BICARBONATE 28.4 MEQ/L (21.0-32.0); POTASSIUM 3.8 MEQ/L (3.5-5.1)
[2016-06-23] MEDS: ENOXAPARIN SODIUM 40 MG/0.4 ML SYRINGE SQ SCH ×2 (05:31→17:34)
[2016-06-23] MEDS: CHLORHEXIDINE 0.12% (ORAL KIT) 15 ML CUP MT SCH ×2 (08:07→20:35)
[2016-06-23] MEDS: SODIUM CHLORIDE 0.9% FLUSH 5 ML FLUSH IVF SCH (09:15)
[2016-06-23] MEDS: NYSTATIN 100,000 U/GM PWD 15 GM BTL TOPICAL SCH ×2 (09:15→20:36)
[2016-06-23] MEDS: PREGABALIN 75 MG CAP PO SCH ×2 (09:15→21:37)
[2016-06-23] MEDS: DOCUSATE SODIUM 100 MG/10 ML UDC PO SCH ×2 (09:15→21:00)
[2016-06-23] MEDS: PANTOPRAZOLE SOD 40 MG DELAYED RELEASE TAB PO SCH (09:15)
[2016-06-23] MEDS: BENEPROTEIN POWDER 1 PACK G-TUBE SCH ×3 (09:15→17:34)
[2016-06-23] MEDS: BACLOFEN 10 MG TAB PO SCH (09:16)
[2016-06-23] MEDS: BETAMETHASONE/CLOTRIMAZOLE CREAM 15 GM TOPICAL SCH ×2 (09:16→20:36)
[2016-06-23] MEDS: SILVER SULFADIAZINE 1% CR 400 GM JAR TOPICAL SCH (09:16)
[2016-06-23] MEDS: POLYETHYLENE GLYCOL 17 GM PKG PO SCH ×2 (09:16→20:35)
[2016-06-23] MEDS: SENNOSIDES SYRUP 8.8 MG/5 ML CUP PO/TUBE SCH ×2 (09:16→20:36)
[2016-06-23] MEDS: LACTOBACILLUS ACIDOPHILUS TAB PO SCH ×3 (09:16→17:34)
[2016-06-23] MEDS: POTASSIUM CHLORIDE 10 MEQ CONTROLLED RELEASE TAB PO SCH (09:16)
--- NOTE | 2016-06-23 11:10 | HHI.CCPN ---
Subjective Remarks/Hospital Course Patient is a 50 years old obese male with past medical history significant for undiagnosed sleep apnea, super morbid obesity, type 2 diabetes was brought to the emergency department on 03/24/16 after feeling light headed and dizzy. On presentation here was found to be hypoxemic and ABG showed severe hypoxemia and hypercarbia. For a recent driving physical he was diagnosed with low oxygen saturations. Patient's oxygen saturation the ED was in the low 80s, which was confirmed on ABG with a oxygen saturation of 78% and PO2 of 46. CTA negative for PE. Patient was initiated on BiPAP therapy with consult to pulmonary Dr. Crane. His oxygenation improved but he continued to be hypercapnic. Today a.m. on nasal cannula his pH was 7.26 and PCO2 was increased at 99, patient was somnolent was placed back on BiPAP and repeat ABG at noon showed pH 7.26 PCO2 98 and pO2 70. This was on 16 BiPAP with FiO2 50%. Critical care was consulted. On my evaluation patient is somnolent but wakes up easily. I reduced the PEEP on BiPAP from 12-7 to facilitate better ventilation. A repeat ANG showed only minimal improvement, so decision made to intubate patient. Glidescope with #4 blade was used. Only propofol was used for induction. Initially I had a Grade 1-2 view, but I was unable to pass tube through the vocal cord to trachea in two attempts. Tube slipped out of Laryngeal opening both times. Dr Garrett intubated patient after NM paralysis with succinylcholine. Post intubation ABG showed improvement in hypercapnia and oxygenation. 03/27/16: Patient remains intubated heavily sedated with propofol and fentanyl. Remained severely hypoxemic on 100% FiO2, PEEP12, chest x-ray shows bibasilar infiltrates. Flagyl added. We'll give 1 dose of vancomycin-Adjust antibiotics according to cultures. Patient super morbid obesity may prevent Prone therapy 03/28: Remains hypoxic but ABG shows marginal improvement in oxygenation. WBC increasing 20.1 today. Start vancomycin scheduled. 03/29: Oxygenation is slightly improved. FiO2 reduced to 50% today. Chest x- ray remains unchanged. On sedation hold patient does wake up and follow commands. WBC count remains at 20 03/30 No acute events overnight. Sedated with Diprivan and Fentanyl. Had T: 100.1 at 4 am. WBC trending down 15.9 today from 20. 03/31 Patient remains sedated with Diprivan, Fentanyl and intubated. Tmax 100.1. Patient required increase O2 overnight now on ACV with PEEP: 12 and FIO2 70%. 04/01: Tmax 99.7. No bowel movement since admission. Patient has bowel sounds. Arousable on the ventilator. We'll attempt prone the patient paralyzed to increase oxygenation status. 04/02: MAXIMUM TEMPERATURE 100.9. Currently 97.7. 5 10 cc stools overnight. Placed on Roto prone yesterday. Saturations currently 94% on Flolan. Diuresed overnight. Creatinine still within normal limits. 04/03: Tmax 101. Currently 99.1. Positive BM. Did not tolerate not being unprone this AM. Saturations much improved prone. Tolerating tube feeding. 04/04: Tmax 100.8. Currently 98.8. +2 L past 24 hours. Attempt to on prone today. Positive BM. C. difficile negative. Remains paralyzed. 04/05: Remains sedated, orally intubated on neuromuscular blockade on mechanical ventilation. Remains on Rota prone bed. On insulin drip. 04/06: Remains sedated, orally intubated on neuromuscular blockade, on mechanical ventilation. Remains on Rota prone bed. Insulin drip continues. 04/07 Patient remains on Rotoprone bed sedated with Diprivan, Versed, Fentanyl in addition patient is on Nimbex. Afebrile. On Insulin drip 5u/hr. 04/08 Patient remains sedated and intubated and on Nimbex. Off insulin drip. On PRVC/AC with RR 15, TV 550, IT: 1.65, PEEP: 15 and FIO2 100%. T: 100.2 at 4 am. 04/09 Patient is sedated, intubated and remains on neuromuscular blockade. Vent setting unchanged. afebrile. 04/10 Patient remains sedated and intubated and on Nimbex. On PRVC/AC, RR 15, TV 500, PEEP: 15, FIO2 90%, IT:1.65, on Flolan drip. Remains on Rotoprone bed. 04/11 minimal improvement in oxygenation, FiO2 now at 75 - continue to improve oxygenation, worsening CXR 04/13/10 continue to improve oxygenation DC'd prone position last night 04/14- improving oxygenation, Nimbex discontinued as well as prone position 04/16 Patient is sedated with Versed and Fentanyl and intubated. Off rotoprone bed. On PRVC/AC RR 15, TV 550, IT 1.65, PEEP:15, FIO2 50%. 04/17 Patient remains sedated with Versed and Fentanyl. Afebrile, tolerating tube feeds 04/18 No acute events overnight Sedated and intubated. Afebrile. On PRVC/AC RR 15 , TV 550, IT 1.65, PEEP:15, FIO2 60% 04/19: Spiking fever up to 101, pancultured and 1 dose of vancomycin given by ID. On weaning doses of Flolan. FiO2 down to 50% I have reduced PEEP to 14. Remains critically ill 04/20: No fever. Sputum cx with Staph -S pending. Fio2 50% PEEP remains at 14. TV increased to 650 to improve lung recruitment. On weaning dose of Flolan-DC after current bag 04/21:Afebrile. Hyponatremia resolving, the patient will be placed on free water flushes. 04/22:The patient had an episode of acute desaturation requiring FiO2 increased to 90%. Stat chest x-ray stat ABG aggressive pulmonary toileting and suctioning , resolution of symptoms FiO2 now 55%. ABGs within normal limits. 04/23: Tmax 99.5. Currently afebrile. O2 sat 50%. PEEP down to 13. One small bowel movement overnight. 04/24: Currently afebrile. O2 sat 45%. PEEP to 12. One BM. Tolerating tube feeds. 04/25: Afebrile. PEEP down to 11. Positive BM. Tolerating tube feeds. Awake on the ventilator with eyes open. 04/26: Afebrile. PEEP down to 10. Time to feeding. Awake and alert eyes open. 04/27: Suspected fever overnight. One bowel movement documented. Will decreased PEEP to 9. Awake and alert and follows commands. 04/28: Tmax 99.3. Currently afebrile. FiO2 increased to 70%. PEEP to 10. Awake and does follow commands. Positive BM 4 yesterday. 04/29: FiO2 down to 55%. Peak systolic 10. Awake and does follow commands. Positive BM 1 yesterday. Tolerating tube feeding. 04/30: No acute issues overnight . The patient continues to be sedated with plans for tracheostomy in the OR today. The patient follows commands when on sedation vacation. 05/01: Postop day 1 post tracheostomy tube placement, no issues overnight. Plan for CPAP trials today. 05/02: Afebrile. The patient continues on CPAP trial 15/5 , FiO2 .45%. The patient alert and responsive this a.m., continues on Precedex and fentanyl infusion. By mouth narcotics, and fentanyl patch instituted to transition all fentanyl infusion. PEG tube placement pending. 05/03: The patient's fentanyl infusion was discontinued last evening. Multimodal analgesia initiated. Patient continues on Precedex infusion, GCS 14 T. Plans today for PEG placement later on this afternoon. No acute issues overnight. 05/04 Tmax 101.0. The patient's PICC line was removed, peripheral IVs initiated. Blood, urine and sputum cultures obtained. Methylprednisolone continues to be weaned currently at 20 mg daily. Plan for weaning of Precedex infusion off today. Seroquel 25 mg twice a day added to medication regimen. The patient continues on CPAP trials. 05/05: Tmax 99.1. Overnight the patient was maintained on CPAP trials of 15/5/40% , the patient's respiratory rate continues to be low 30s, tolerated well. The sake early this a.m. the patient was noticed to have a episode of nausea and vomiting Zofran instituted. The patient continues on scheduled Reglan TID. Blood , sputum and urine cultures were obtained yesterday secondary to elevated temperature awaiting results. 05/06: The patient remains on T piece greater than 48 hours. The patient is alert oriented and cooperative. Trach site without erythema or drainage. Patient was noticed over the last 12 hours to have multiple bowel movements or in the night. Will D/C MiraLAX, lactulose and Reglan will be discontinued. Plan for possible transfer to LTAC facility. 05/07 no acute issues overnight tolerating TPs 05/27 shortly after midnight rapid response team was called due to patient's respiratory distress and hypercarbic respiratory failure with hypoxemia and cyanosis 05/27: Tracheostomy was exchanged this morning to a #6 Shiley fenestrated cuffed. Currently on PRVC with PEEP of 10. Saturations are much improved. Awake and alert and following commands. Requesting diet. 05/28: Awake and alert. On mechanical ventilation via tracheostomy. Following commands. 05/29: Awake and alert. On mechanical ventilation via tracheostomy. Tolerating PO diet. Following commands. 05/30: Awake and alert. On mechanical ventilation via tracheostomy. Tolerating by mouth diet. Following commands. 05/31: Remains on mechanical ventilation via tracheostomy. Tolerating C Pap/ pressure support. Following commands. Tolerating by mouth diet. 06/01: Remains on mechanical ventilation via tracheostomy. Awake and alert. Tolerated C Pap and pressure support however gets extremely tachypneic on dropping pressure-support to +5. Tolerating by mouth diet 06/02: Tmax 99.5. Currently 99. Currently on T piece trial. Condom catheter placed. 06/03: Currently T piece trial. Saturations around 98 %. Appears comfortable. He is in no acute distress. No issues overnight 06/12: Hypoxemic respiratory failure and difficulty bag ventilating. Rushed to ICU with acceptable sats and immediately intubated through the mouth. Trach tube removed. Good ventilation immediately restored. CXR with diffuse pulmonary edema - question negative pressure. 06/13: Persistent diffuse infiltrates, MSSA sputum, start abx. Hydrate for oliguria. Convert to APRV for recruitment. 06/14: CXR has cleared and well expanded on APRV. Will work to convert to conventional and revise trach. 06/15: CXR clear. MSSA colonized but fever persists. Treat. Need to revise trach. 06/16: Breathing comfortably on SBT 14/. Will work to extubation but will probably need a #8 trach replaced. 06/17: Awake and alert, remains orally intubated on mechanical ventilation. Daily C Pap trials. We will discuss with Dr. Rosenberg regarding replacing tracheostomy in OR. 06/18: Awake and alert, remains orally intubated on mechanical ventilation. Daily C Pap trials. Awaiting tracheostomy with Dr. Rosenberg in OR 06/19: complaining of headaches today. and right leg tingling. plan for possible trach today. 06/20: continues on low-dose norepinephrine. wbc downtrending. vanc/diflucan added yesterday. going for trach today in OR. 06/21: trach yesterday in OR. wbc downtrending. still on low-dose levophed, but blood cultures negative so far. 06/22: off levophed. blood cultures negative x 48h. Subjective 06/23: no clinical improvements. OOB to stretcher chair. Objective Vital Signs Date Time Temp Pulse Resp B/P Pulse Ox O2 Delivery O2 Flow Rate FiO2 06/23/16 09:50 99 45 06/23/16 08:00 99.7 83 25 97/75 06/23/16 07:00 Mechanical Ventilator 06/21/16 11:45 9.00 Intake and Output 06/22/16 06/22/16 06/23/16 08:00 16:00 00:00 Intake Total 1069 ml 1322 ml 930 ml Output Total 1100 ml 1800 ml 700 ml Balance -31 ml -478 ml 230 ml Result Diagram: 06/23/16 0330 06/23/16 0330 Imaging Last Impressions Chest X-Ray 05/28/16 0600 Signed Impressions: Service Date/Time: Saturday, May 28, 2016 04:49 - CONCLUSION: Unchanged bibasilar densities. Wale Dalal MD Liver Ultrasound 05/09/16 0000 Signed Impressions: Service Date/Time: Monday, May 09, 2016 22:28 - CONCLUSION: 1. Enlarged, fatty liver. 2. Small stones or tumefactive sludge adherent to one of the gallbladder arcos. 3. Splenomegaly. 4. Pancreas is obscured by overlying bowel gas and patient's body habitus. Arthur Kennedy MD Abdomen X-Ray 05/01/16 0000 Signed Impressions: Service Date/Time: Sunday, May 01, 2016 17:28 - CONCLUSION: No evidence of obstruction. Feeding tube overlies the distal stomach, May have to be advanced slightly to reach the duodenum. Nick Jon MD Chest CT 03/28/16 0836 Signed Impressions: Service Date/Time: Monday, March 28, 2016 09:57 - CONCLUSION: Development areas of air bronchograms and consolidation more prominent in the right and left posterior basilar segments of the lower lobes. ET tube above the chanelle. Bernard Hartman MD CT Angiography 03/24/16 1121 Signed Impressions: Service Date/Time: Thursday, March 24, 2016 12:47 - CONCLUSION: 1. There is respiratory motion artifact but no PE is identified through most of the segmental level pulmonary arteries. 2. Mildly enlarged main pulmonary artery may indicate pulmonary arterial hypertension. 3. 11 mm left lower lobe noncalcified pulmonary nodule. Suggest correlation with any prior imaging studies that could confirm longer-term stability. If none are available consider short-term followup noncontrast chest CT in approximately 3 months. Ubaldo Rodas MD Objective Remarks Gen: middle-aged super morbidly obese male, lying in bed, trached HEENT: [place]. at. mucous membranes moist. Neck: trach with clear secretions. Chest: PRVC. equal chest rise. CARDIOVASCULAR: normal rate, regular rhythm. sinus by telemetry. Abd: Abdomen soft, obese, nontender. Severe central obesity, PEG tube site with thick yellowish drainage MUSCULOSKELETAL: Extremities with trace + nonpitting bilateral lower extremity edema. NEUROLOGICAL: Anxious, opens eyes, tracks.Moves 4 to command, tracks with eyes, nods head. Procedures 04/30/16 - tracheostomy by Dr. Reyes 05/03/16 - EGD with PEG placement by Dr. Faith 06/09/16 - PEG removal 06/21/16- repeat tracheostomy by Dr. Cuellar A/P Assessment and Plan Assessment: 50yM with super morbid obesity and acute on chronic respiratory failure, now requiring replacement of tracheostomy. Also severely deconditioned. we will work aggressively with physical therapy. s/p re-do trach in OR 06/20. Now improving from shock state. 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 Pulm: Acute hypercarbic hypoxemic respiratory failure-resolved JACOB [facility] History of staph aureus pneumonia/HCAP ARDS Tracheostomy exchange to #6 Shiley fenestrated cuffed on 05/27 -> removed. Ventilator bundle Bronchodilator therapy every 6 hours With Atrovent nebs every 2 hours when necessary dyspnea Pulmonary Dr. Perry Re-intubation through mouth. Revise trach with Dr. Cuellar 06/20 failing CPAP trials for tachypnea and hypoxia. daily strengthening with SBTs. CV: Monitor HR and BP keep MAP>65mmHg 2-D echo 03/26 EF 60%. No regional wall motion abnormality. Mild MR/TR. /FEN: Monitor renal function, I/O's, electrolytes replacement per protocol. GI: Constipation-resolved Moderate protein calorie malnutrition Nausea and vomiting Continue oral diet starting 05/29 Protonix 40mg daily Senna and Colace twice a day PEG tube placement- 05/03 Zofran 4 mg every 6 hours when necessary ID: Staph aureus pneumonia - resolved pseudomonas pneumonia MSSA pneumonia d/c vanc, diflucan cefepime x 7 days. anticipated stop date 06/25. Pertinent culture 06/20 - blood cx NGTD 06/15 - MSSA, PSAE 05/27 - sputum - MSSA 04/27 - pansensitive staph aureus 04/27 blood cultures 2 negative 04/25 - urine -no growth 04/19 - blood cultures 2 out of 4 - staph aureus 04/19 - sputum - staph aureus 04/08 - sputum - staph aureus 04/03 - sputum - staph aureus 03/30 - sputum- -staph aureus 03/27 - sputum - staph aureus 03/26 - blood - staph hominis On vancomycin 2 g IV every 12 are since 04/19 - 04/29 Azactam 04/27 through 04/29 Heme: Leukocytosis Monitor CBC/coags Monitor WBC Endo: Diabetes mellitus SSI for glycemic control with sliding scale insulin every 4 hours Levemir insulin 5 U hs, q6h SSI MSK Morbid obesity Weight loss encouraged DVT, GI prophylaxis -Bilateral lower extremity SCDs. IV Protonix 40 mg daily. Lovenox 40 mg sq BID LINES: -piv -keep batista for now. Js Garrett MD Jun 23, 2016 11:10
[2016-06-23] MEDS ORDERED: PHARMACY ORDERED LAB ONE (12:45)
[2016-06-23] MEDS: CEFEPIME INJ 2,000 MG in SODIUM CHLORIDE 0.9% INJ 100 ML IV SCH (13:24)
--- NOTE | 2016-06-23 17:21 | HHI.IDPN ---
Subjective Subjective Remarks Notes reviewed Temps low grade On CPAP yesterday and overnight Just placed on T-piece Sputum with PSAE and MSSA WBC stable Patient is a 50-year-old male admitted to the hospital for shortness of breath. There is a history of possible sleep apnea, and he has morbid obesity as well as diabetes. Patient . remained on the vent and he underwent tracheostomy May 01, 2016. He was treated several times for MSSA pneumonia. He was being followed from the ID standpoint, and we signed off the case on May 08. At that time he had completed a course of antibiotics for his pneumonia. He was also doing well and tolerating T piece, and has been off the respirator. Antibiotics Cefepime Past Medical History Reviewed Allergies: Coded Allergies: Penicillin (Verified Allergy, Severe, Swelling, 03/24/16) Tetanus Toxoid (Verified Allergy, Unknown, Swelling, 03/24/16) Objective . Vital Signs Date Time Temp Pulse Resp B/P Pulse Ox O2 Delivery O2 Flow Rate FiO2 06/23/16 17:13 98 T-piece 7.00 50 06/23/16 16:00 100.0 102 30 102/61 95 06/23/16 16:00 45 06/23/16 12:00 99.7 82 25 93/53 93 06/23/16 12:00 45 06/23/16 09:50 99 45 06/23/16 08:00 99.7 83 25 97/75 97 06/23/16 08:00 45 06/23/16 07:00 98 Mechanical Ventilator 40 06/23/16 04:00 99.9 76 24 103/55 100 06/23/16 04:00 96 45 06/23/16 04:00 45 06/23/16 00:00 99.3 86 22 107/62 96 06/23/16 00:00 45 06/22/16 22:00 70 06/22/16 21:00 99 45 06/22/16 20:00 98.6 75 21 89/54 95 06/22/16 20:00 40 06/22/16 20:00 75 06/22/16 19:00 95 Mechanical Ventilator 40 06/22/16 06/22/16 06/23/16 15:00 23:00 07:00 Intake Total 1322 ml 930 ml 515 ml Output Total 1800 ml 700 ml 1000 ml Balance -478 ml 230 ml -485 ml Intake Oral 240 ml 480 ml 240 ml IV Total 1082 ml 450 ml 275 ml Output Urine Total 1800 ml 700 ml 1000 ml # Bowel Movements 1 0 1 . Laboratory Tests Test 06/22/16 06/23/16 04:15 03:30 White Blood Count 16.3 TH/MM3 15.9 TH/MM3 Red Blood Count 3.49 MIL/MM3 3.47 MIL/MM3 Hemoglobin 10.0 GM/DL 9.7 GM/DL Hematocrit 29.5 % 29.8 % Mean Corpuscular Volume 84.6 FL 85.8 FL Mean Corpuscular Hemoglobin 28.7 PG 28.1 PG Mean Corpuscular Hemoglobin 33.9 % 32.7 % Concent Red Cell Distribution Width 17.7 % 17.6 % Platelet Count 520 TH/MM3 476 TH/MM3 Mean Platelet Volume 7.9 FL 7.8 FL Laboratory Tests Test 06/22/16 06/23/16 04:15 03:30 Sodium Level 137 MEQ/L 137 MEQ/L Potassium Level 3.7 MEQ/L 3.8 MEQ/L Chloride Level 98 MEQ/L 99 MEQ/L Carbon Dioxide Level 29.3 MEQ/L 28.4 MEQ/L Anion Gap 10 MEQ/L 10 MEQ/L Blood Urea Nitrogen 4 MG/DL 6 MG/DL Creatinine 0.34 MG/DL 0.45 MG/DL Estimat Glomerular Filtration 275 ML/MIN 199 ML/MIN Rate Random Glucose 88 MG/DL 83 MG/DL Calcium Level 8.7 MG/DL 9.0 MG/DL Imaging Abdomen X-Ray 06/19/16 0000 Signed Impressions: Service Date/Time: Sunday, June 19, 2016 10:43 - CONCLUSION: Gastric tube tip does not cross the diaphragm and the side port is approximately 8 cm above the diaphragm. Chano Goodwin MD Chest X-Ray 06/14/16 0400 Signed Impressions: Service Date/Time: June 03:48 - CONCLUSION: Significant improvement of the lungs with minimal residual disease the right lower lobe. Wale Dalal MD Abdomen X-Ray 06/12/16 0000 Signed Impressions: Service Date/Time: Sunday, June 12, 2016 17:57 - CONCLUSION: 1. Nasogastric tube in place with the tip projected over the distal stomach. 2. Unremarkable bowel gas pattern. Genaro Garcia MD Lower Extremity Ultrasound 06/04/16 0000 Signed Impressions: Service Date/Time: Saturday, June 04, 2016 14:54 - CONCLUSION: 1. No DVT identified. cD Barton MD Liver Ultrasound 05/09/16 0000 Signed Impressions: Service Date/Time: Monday, May 09, 2016 22:28 - CONCLUSION: 1. Enlarged, fatty liver. 2. Small stones or tumefactive sludge adherent to one of the gallbladder arcos. 3. Splenomegaly. 4. Pancreas is obscured by overlying bowel gas and patient's body habitus. Arthur Kennedy MD Chest CT 03/28/16 0836 Signed Impressions: Service Date/Time: Monday, March 28, 2016 09:57 - CONCLUSION: Development areas of air bronchograms and consolidation more prominent in the right and left posterior basilar segments of the lower lobes. ET tube above the chanelle. Bernard Hartman MD CT Angiography 03/24/16 1121 Signed Impressions: Service Date/Time: Thursday, March 24, 2016 12:47 - CONCLUSION: 1. There is respiratory motion artifact but no PE is identified through most of the segmental level pulmonary arteries. 2. Mildly enlarged main pulmonary artery may indicate pulmonary arterial hypertension. 3. 11 mm left lower lobe noncalcified pulmonary nodule. Suggest correlation with any prior imaging studies that could confirm longer-term stability. If none are available consider short-term followup noncontrast chest CT in approximately 3 months. Ubaldo Rodas MD Chest X-Ray 05/03/16 0600 Signed Impressions: Service Date/Time: May 04:08 - CONCLUSION: 1. Subsegmental airspace disease in the lungs. Cardiomegaly. Kyle Lorenzo MD Abdomen X-Ray 05/01/16 0000 Signed Impressions: Service Date/Time: Sunday, May 01, 2016 17:28 - CONCLUSION: No evidence of obstruction. Feeding tube overlies the distal stomach, May have to be advanced slightly to reach the duodenum. Nick Jon MD Chest CT 03/28/16 0836 Signed Impressions: Service Date/Time: Monday, March 28, 2016 09:57 - CONCLUSION: Development areas of air bronchograms and consolidation more prominent in the right and left posterior basilar segments of the lower lobes. ET tube above the chanelle. Bernard Hartman MD CT Angiography 03/24/16 1121 Signed Impressions: Service Date/Time: Thursday, March 24, 2016 12:47 - CONCLUSION: 1. There is respiratory motion artifact but no PE is identified through most of the segmental level pulmonary arteries. 2. Mildly enlarged main pulmonary artery may indicate pulmonary arterial hypertension. 3. 11 mm left lower lobe noncalcified pulmonary nodule. Suggest correlation with any prior imaging studies that could confirm longer-term stability. If none are available consider short-term followup noncontrast chest CT in approximately 3 months. Ubaldo Rodas MD Physical Exam GENERAL: Awake and alert, obese, on the vent, not in distress SKIN: Warm and moist. No generalized rash HEENT: [place] conjunctivae, no petechia or hemorrhage. No scleral icterus. NECK: Large and thick. S/P trach, site ok; previous trach still open. CHEST: Coarse BS eufemia, equal breath sounds CARDIAC: regular rate and rhythm, no murmur ABDOMEN: soft, obese, (+) BS and normoactive, no tenderness, no guarding or rebound. : Becker in place, urine looks clear MUSCULOSKELETAL: Extremities without clubbing, cyanosis. Mild edema NEUROLOGICAL: Awake and interacting. stable PSYCH: Awake, cooperative LINE: PIV with no evidence of infection : Becker in place, urine looks clear Assessment & Plan Remarks IMPRESSION Recurrent respiratory failure due to pulmonary edema - CXR better New PNA: PSAE and MSSA Fevers, etiology? - possible due to pulmonary, has PSAE and Staph aureus in sputum Leukocytosis, stable Pneumonia, C/S MSSA, S/P Rx x 2 JACOB Morbid obesity Allergy to PCN, swelling Hypotension RECOMMENDATION Follow C/S Monitor temps Monitor progress Continue Cefepime which will cover PSAE and MSSA - give 7 days Weaning from vent per CCM Elisha Painter MD Jun 23, 2016 17:21 Elisha Painter MD Jun 23, 2016 17:21
--- NOTE | 2016-06-23 19:04 | HHI.PR ---
Subjective Remarks acute respiratory failure back on vent. support tracheostomy done Objective Vital Signs Date Time Temp Pulse Resp B/P Pulse Ox O2 Delivery O2 Flow Rate FiO2 06/23/16 17:13 98 T-piece 7.00 50 06/23/16 16:00 100.0 102 30 102/61 95 06/23/16 16:00 45 06/23/16 12:00 99.7 82 25 93/53 93 06/23/16 12:00 45 06/23/16 09:50 99 45 06/23/16 08:00 99.7 83 25 97/75 97 06/23/16 08:00 45 06/23/16 07:00 98 Mechanical Ventilator 40 06/23/16 04:00 99.9 76 24 103/55 100 06/23/16 04:00 96 45 06/23/16 04:00 45 06/23/16 00:00 99.3 86 22 107/62 96 06/23/16 00:00 45 06/22/16 22:00 70 06/22/16 21:00 99 45 06/22/16 20:00 98.6 75 21 89/54 95 06/22/16 20:00 40 06/22/16 20:00 75 I/O 06/22/16 06/22/16 06/22/16 06/23/16 06/23/16 06/23/16 07:00 15:00 23:00 07:00 15:00 23:00 Intake Total 1069 ml 1322 ml 930 ml 515 ml 733 ml Output Total 1100 ml 1800 ml 700 ml 1000 ml 2100 ml Balance -31 ml -478 ml 230 ml -485 ml -1367 ml Intake Oral 0 ml 240 ml 480 ml 240 ml 450 ml IV Total 1069 ml 1082 ml 450 ml 275 ml 283 ml Output Urine Total 1100 ml 1800 ml 700 ml 1000 ml 2100 ml # Bowel Movements 0 1 0 1 0 Result Diagram: 06/23/1632906/23/16329 Objective Remarks GENERAL: SKIN: Warm and dry.on vent support HEAD: Atraumatic. Normocephalic. EYES: Pupils equal and round. No scleral icterus. No injection or drainage. ENT: No nasal bleeding or discharge. Mucous membranes pink and moist. NECK: Trachea midline. No JVD. CARDIOVASCULAR: Regular rate and rhythm. RESPIRATORY: No accessory muscle use. Clear to auscultation. Breath sounds equal bilaterally. GASTROINTESTINAL: Abdomen soft, non-tender, nondistended. Hepatic and splenic margins not palpable. MUSCULOSKELETAL: Extremities without clubbing, cyanosis, or edema. No obvious deformities. NEUROLOGICAL: Awake and alert. No obvious cranial nerve deficits. Motor grossly within normal limits. Five out of 5 muscle strength in the arms and legs. Normal speech. PSYCHIATRIC: Appropriate mood and affect; insight and judgment normal. Assessment and Plan Assessment and Plan respiratory failure morbid obesity plan vent support pulm toilet prognosis guarded Orlando Perry MD Jun 23, 2016 19:04
[2016-06-23] MEDS: INSULIN DETEMIR 100 UNITS/ML VIAL SQ SCH (21:00)
[2016-06-23] MEDS: ACETAMINOPHEN 650 MG/20.3 ML UDC PO PRN (21:37)
[2016-06-24] VITALS (14 sets, daily range): BP systolic 85–111; BP diastolic 44–62; PULSE 86–102; RESP 22–42; TEMP 99.1–100.9; O2SAT 89–100
[2016-06-24] MEDS: CEFEPIME INJ 2,000 MG in SODIUM CHLORIDE 0.9% INJ 100 ML IV SCH ×3 (00:16→23:35)
[2016-06-24] MEDS: ARTIFICIAL TEARS OPTH SOLN 15 ML BTL EACH EYE SCH ×6 (01:37→23:35)
[2016-06-24 05:05] LABS: BICARBONATE 32.6 MEQ/L (21.0-32.0); HEMATOCRIT 32.2 % (39.0-51.0); MEAN CELL VOLUME 84.9 FL (80.0-100.0); MEAN CORPUSCULAR HGB CONC 31.8 % (32.0-36.0); PLATELET COUNT 508 TH/MM3 (150-450); POTASSIUM 3.7 MEQ/L (3.5-5.1); RED BLOOD COUNT 3.79 MIL/MM3 (4.50-5.90); RED CELL DISTRIBUTION WIDTH 17.1 % (11.6-17.2); REVIEW FLAG FINAL; WHITE BLOOD COUNT 24.3 TH/MM3 (4.0-11.0)
[2016-06-24] MEDS: ENOXAPARIN SODIUM 40 MG/0.4 ML SYRINGE SQ SCH ×2 (05:25→17:18)
[2016-06-24] MEDS: CHLORHEXIDINE 0.12% (ORAL KIT) 15 ML CUP MT SCH ×2 (08:00→21:08)
--- NOTE | 2016-06-24 08:29 | HHI.CCPN ---
Subjective Remarks/Hospital Course Patient is a 50 years old obese male with past medical history significant for undiagnosed sleep apnea, super morbid obesity, type 2 diabetes was brought to the emergency department on 03/24/16 after feeling light headed and dizzy. On presentation here was found to be hypoxemic and ABG showed severe hypoxemia and hypercarbia. For a recent driving physical he was diagnosed with low oxygen saturations. Patient's oxygen saturation the ED was in the low 80s, which was confirmed on ABG with a oxygen saturation of 78% and PO2 of 46. CTA negative for PE. Patient was initiated on BiPAP therapy with consult to pulmonary Dr. Crane. His oxygenation improved but he continued to be hypercapnic. Today a.m. on nasal cannula his pH was 7.26 and PCO2 was increased at 99, patient was somnolent was placed back on BiPAP and repeat ABG at noon showed pH 7.26 PCO2 98 and pO2 70. This was on 16 BiPAP with FiO2 50%. Critical care was consulted. On my evaluation patient is somnolent but wakes up easily. I reduced the PEEP on BiPAP from 12-7 to facilitate better ventilation. A repeat ANG showed only minimal improvement, so decision made to intubate patient. Glidescope with #4 blade was used. Only propofol was used for induction. Initially I had a Grade 1-2 view, but I was unable to pass tube through the vocal cord to trachea in two attempts. Tube slipped out of Laryngeal opening both times. Dr Garrett intubated patient after NM paralysis with succinylcholine. Post intubation ABG showed improvement in hypercapnia and oxygenation. 03/27/16: Patient remains intubated heavily sedated with propofol and fentanyl. Remained severely hypoxemic on 100% FiO2, PEEP12, chest x-ray shows bibasilar infiltrates. Flagyl added. We'll give 1 dose of vancomycin-Adjust antibiotics according to cultures. Patient super morbid obesity may prevent Prone therapy 03/28: Remains hypoxic but ABG shows marginal improvement in oxygenation. WBC increasing 20.1 today. Start vancomycin scheduled. 03/29: Oxygenation is slightly improved. FiO2 reduced to 50% today. Chest x- ray remains unchanged. On sedation hold patient does wake up and follow commands. WBC count remains at 20 03/30 No acute events overnight. Sedated with Diprivan and Fentanyl. Had T: 100.1 at 4 am. WBC trending down 15.9 today from 20. 03/31 Patient remains sedated with Diprivan, Fentanyl and intubated. Tmax 100.1. Patient required increase O2 overnight now on ACV with PEEP: 12 and FIO2 70%. 04/01: Tmax 99.7. No bowel movement since admission. Patient has bowel sounds. Arousable on the ventilator. We'll attempt prone the patient paralyzed to increase oxygenation status. 04/02: MAXIMUM TEMPERATURE 100.9. Currently 97.7. 5 10 cc stools overnight. Placed on Roto prone yesterday. Saturations currently 94% on Flolan. Diuresed overnight. Creatinine still within normal limits. 04/03: Tmax 101. Currently 99.1. Positive BM. Did not tolerate not being unprone this AM. Saturations much improved prone. Tolerating tube feeding. 04/04: Tmax 100.8. Currently 98.8. +2 L past 24 hours. Attempt to on prone today. Positive BM. C. difficile negative. Remains paralyzed. 04/05: Remains sedated, orally intubated on neuromuscular blockade on mechanical ventilation. Remains on Rota prone bed. On insulin drip. 04/06: Remains sedated, orally intubated on neuromuscular blockade, on mechanical ventilation. Remains on Rota prone bed. Insulin drip continues. 04/07 Patient remains on Rotoprone bed sedated with Diprivan, Versed, Fentanyl in addition patient is on Nimbex. Afebrile. On Insulin drip 5u/hr. 04/08 Patient remains sedated and intubated and on Nimbex. Off insulin drip. On PRVC/AC with RR 15, TV 550, IT: 1.65, PEEP: 15 and FIO2 100%. T: 100.2 at 4 am. 04/09 Patient is sedated, intubated and remains on neuromuscular blockade. Vent setting unchanged. afebrile. 04/10 Patient remains sedated and intubated and on Nimbex. On PRVC/AC, RR 15, TV 500, PEEP: 15, FIO2 90%, IT:1.65, on Flolan drip. Remains on Rotoprone bed. 04/11 minimal improvement in oxygenation, FiO2 now at 75 - continue to improve oxygenation, worsening CXR 04/13/10 continue to improve oxygenation DC'd prone position last night 04/14- improving oxygenation, Nimbex discontinued as well as prone position 04/16 Patient is sedated with Versed and Fentanyl and intubated. Off rotoprone bed. On PRVC/AC RR 15, TV 550, IT 1.65, PEEP:15, FIO2 50%. 04/17 Patient remains sedated with Versed and Fentanyl. Afebrile, tolerating tube feeds 04/18 No acute events overnight Sedated and intubated. Afebrile. On PRVC/AC RR 15 , TV 550, IT 1.65, PEEP:15, FIO2 60% 04/19: Spiking fever up to 101, pancultured and 1 dose of vancomycin given by ID. On weaning doses of Flolan. FiO2 down to 50% I have reduced PEEP to 14. Remains critically ill 04/20: No fever. Sputum cx with Staph -S pending. Fio2 50% PEEP remains at 14. TV increased to 650 to improve lung recruitment. On weaning dose of Flolan-DC after current bag 04/21:Afebrile. Hyponatremia resolving, the patient will be placed on free water flushes. 04/22:The patient had an episode of acute desaturation requiring FiO2 increased to 90%. Stat chest x-ray stat ABG aggressive pulmonary toileting and suctioning , resolution of symptoms FiO2 now 55%. ABGs within normal limits. 04/23: Tmax 99.5. Currently afebrile. O2 sat 50%. PEEP down to 13. One small bowel movement overnight. 04/24: Currently afebrile. O2 sat 45%. PEEP to 12. One BM. Tolerating tube feeds. 04/25: Afebrile. PEEP down to 11. Positive BM. Tolerating tube feeds. Awake on the ventilator with eyes open. 04/26: Afebrile. PEEP down to 10. Time to feeding. Awake and alert eyes open. 04/27: Suspected fever overnight. One bowel movement documented. Will decreased PEEP to 9. Awake and alert and follows commands. 04/28: Tmax 99.3. Currently afebrile. FiO2 increased to 70%. PEEP to 10. Awake and does follow commands. Positive BM 4 yesterday. 04/29: FiO2 down to 55%. Peak systolic 10. Awake and does follow commands. Positive BM 1 yesterday. Tolerating tube feeding. 04/30: No acute issues overnight . The patient continues to be sedated with plans for tracheostomy in the OR today. The patient follows commands when on sedation vacation. 05/01: Postop day 1 post tracheostomy tube placement, no issues overnight. Plan for CPAP trials today. 05/02: Afebrile. The patient continues on CPAP trial 15/5 , FiO2 .45%. The patient alert and responsive this a.m., continues on Precedex and fentanyl infusion. By mouth narcotics, and fentanyl patch instituted to transition all fentanyl infusion. PEG tube placement pending. 05/03: The patient's fentanyl infusion was discontinued last evening. Multimodal analgesia initiated. Patient continues on Precedex infusion, GCS 14 T. Plans today for PEG placement later on this afternoon. No acute issues overnight. 05/04 Tmax 101.0. The patient's PICC line was removed, peripheral IVs initiated. Blood, urine and sputum cultures obtained. Methylprednisolone continues to be weaned currently at 20 mg daily. Plan for weaning of Precedex infusion off today. Seroquel 25 mg twice a day added to medication regimen. The patient continues on CPAP trials. 05/05: Tmax 99.1. Overnight the patient was maintained on CPAP trials of 15/5/40% , the patient's respiratory rate continues to be low 30s, tolerated well. The sake early this a.m. the patient was noticed to have a episode of nausea and vomiting Zofran instituted. The patient continues on scheduled Reglan TID. Blood , sputum and urine cultures were obtained yesterday secondary to elevated temperature awaiting results. 05/06: The patient remains on T piece greater than 48 hours. The patient is alert oriented and cooperative. Trach site without erythema or drainage. Patient was noticed over the last 12 hours to have multiple bowel movements or in the night. Will D/C MiraLAX, lactulose and Reglan will be discontinued. Plan for possible transfer to LTAC facility. 05/07 no acute issues overnight tolerating TPs 05/27 shortly after midnight rapid response team was called due to patient's respiratory distress and hypercarbic respiratory failure with hypoxemia and cyanosis 05/27: Tracheostomy was exchanged this morning to a #6 Shiley fenestrated cuffed. Currently on PRVC with PEEP of 10. Saturations are much improved. Awake and alert and following commands. Requesting diet. 05/28: Awake and alert. On mechanical ventilation via tracheostomy. Following commands. 05/29: Awake and alert. On mechanical ventilation via tracheostomy. Tolerating PO diet. Following commands. 05/30: Awake and alert. On mechanical ventilation via tracheostomy. Tolerating by mouth diet. Following commands. 05/31: Remains on mechanical ventilation via tracheostomy. Tolerating C Pap/ pressure support. Following commands. Tolerating by mouth diet. 06/01: Remains on mechanical ventilation via tracheostomy. Awake and alert. Tolerated C Pap and pressure support however gets extremely tachypneic on dropping pressure-support to +5. Tolerating by mouth diet 06/02: Tmax 99.5. Currently 99. Currently on T piece trial. Condom catheter placed. 06/03: Currently T piece trial. Saturations around 98 %. Appears comfortable. He is in no acute distress. No issues overnight 06/12: Hypoxemic respiratory failure and difficulty bag ventilating. Rushed to ICU with acceptable sats and immediately intubated through the mouth. Trach tube removed. Good ventilation immediately restored. CXR with diffuse pulmonary edema - question negative pressure. 06/13: Persistent diffuse infiltrates, MSSA sputum, start abx. Hydrate for oliguria. Convert to APRV for recruitment. 06/14: CXR has cleared and well expanded on APRV. Will work to convert to conventional and revise trach. 06/15: CXR clear. MSSA colonized but fever persists. Treat. Need to revise trach. 06/16: Breathing comfortably on SBT 14/. Will work to extubation but will probably need a #8 trach replaced. 06/17: Awake and alert, remains orally intubated on mechanical ventilation. Daily C Pap trials. We will discuss with Dr. Rosenberg regarding replacing tracheostomy in OR. 06/18: Awake and alert, remains orally intubated on mechanical ventilation. Daily C Pap trials. Awaiting tracheostomy with Dr. Rosenberg in OR 06/19: complaining of headaches today. and right leg tingling. plan for possible trach today. 06/20: continues on low-dose norepinephrine. wbc downtrending. vanc/diflucan added yesterday. going for trach today in OR. 06/21: trach yesterday in OR. wbc downtrending. still on low-dose levophed, but blood cultures negative so far. 06/22: off levophed. blood cultures negative x 48h. 06/23: no clinical improvements. OOB to stretcher chair. Subjective 06/24: got OOB to stretcher chair yesterday. wbc significantly elevated to 24k today, febrile overnight. more secretions noted today by RT and bedside RN. Objective Vital Signs Date Time Temp Pulse Resp B/P Pulse Ox O2 Delivery O2 Flow Rate FiO2 06/24/16 08:18 92 45 06/24/16 06:00 102 06/24/16 04:00 100.9 32 91/52 06/23/16 20:00 Mechanical Ventilator 06/23/16 19:00 9.00 Intake and Output 06/23/16 06/23/16 06/24/16 08:00 16:00 00:00 Intake Total 515 ml 733 ml 480 ml Output Total 1000 ml 2100 ml 1500 ml Balance -485 ml -1367 ml -1020 ml Result Diagram: 06/24/16 0350 06/24/16 0350 Imaging Last Impressions Chest X-Ray 05/28/16 0600 Signed Impressions: Service Date/Time: Saturday, May 28, 2016 04:49 - CONCLUSION: Unchanged bibasilar densities. Wale Dalal MD Liver Ultrasound 05/09/16 0000 Signed Impressions: Service Date/Time: Monday, May 09, 2016 22:28 - CONCLUSION: 1. Enlarged, fatty liver. 2. Small stones or tumefactive sludge adherent to one of the gallbladder arcos. 3. Splenomegaly. 4. Pancreas is obscured by overlying bowel gas and patient's body habitus. Arthur Kennedy MD Abdomen X-Ray 05/01/16 0000 Signed Impressions: Service Date/Time: Sunday, May 01, 2016 17:28 - CONCLUSION: No evidence of obstruction. Feeding tube overlies the distal stomach, May have to be advanced slightly to reach the duodenum. Nick Jon MD Chest CT 03/28/16 0836 Signed Impressions: Service Date/Time: Monday, March 28, 2016 09:57 - CONCLUSION: Development areas of air bronchograms and consolidation more prominent in the right and left posterior basilar segments of the lower lobes. ET tube above the chanelle. Bernard Hartman MD CT Angiography 03/24/16 1121 Signed Impressions: Service Date/Time: Thursday, March 24, 2016 12:47 - CONCLUSION: 1. There is respiratory motion artifact but no PE is identified through most of the segmental level pulmonary arteries. 2. Mildly enlarged main pulmonary artery may indicate pulmonary arterial hypertension. 3. 11 mm left lower lobe noncalcified pulmonary nodule. Suggest correlation with any prior imaging studies that could confirm longer-term stability. If none are available consider short-term followup noncontrast chest CT in approximately 3 months. Ubaldo Rodas MD Objective Remarks Gen: middle-aged super morbidly obese male, lying in bed, trached HEENT: nc. at. mucous membranes moist. Neck: trach with clear secretions. Chest: PRVC. equal chest rise. CARDIOVASCULAR: normal rate, regular rhythm. sinus by telemetry. Abd: Abdomen soft, obese, nontender. Severe central obesity, PEG tube site with thick yellowish drainage MUSCULOSKELETAL: Extremities with trace + nonpitting bilateral lower extremity edema. NEUROLOGICAL: Anxious, opens eyes, tracks.Moves 4 to command, tracks with eyes, nods head. Procedures 04/30/16 - tracheostomy by Dr. Reyes 05/03/16 - EGD with PEG placement by Dr. Faith 06/09/16 - PEG removal 06/21/16- repeat tracheostomy by Dr. Cuellar A/P Assessment and Plan Assessment: 50yM with super morbid obesity and acute on chronic respiratory failure, now requiring replacement of tracheostomy. Also severely deconditioned. we will work aggressively with physical therapy. s/p re-do trach in OR 06/20. Improved from recent septic shock, but now with leukocytosis and fever again. worsening secretions, although o2 requirement has not changed. will repeat sputum culture. 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 Pulm: Acute hypercarbic hypoxemic respiratory failure-resolved [facility] History of staph aureus pneumonia/HCAP ARDS Tracheostomy exchange to #6 Shiley fenestrated cuffed on 05/27 -> removed. Ventilator bundle Bronchodilator therapy every 6 hours With Atrovent nebs every 2 hours when necessary dyspnea Pulmonary Dr. Orlando Re-intubation through mouth. Revise trach with Dr. Cuellar 06/20 failing CPAP trials for tachypnea and hypoxia. daily strengthening with SBTs. CV: Monitor HR and BP keep MAP>65mmHg 2-D echo 03/26 EF 60%. No regional wall motion abnormality. Mild MR/TR. /FEN: Monitor renal function, I/O's, electrolytes replacement per protocol. GI: Constipation-resolved Moderate protein calorie malnutrition Nausea and vomiting Continue oral diet starting 05/29 Protonix 40mg daily Senna and Colace twice a day PEG tube placement- 05/03 Zofran 4 mg every 6 hours when necessary ID: Staph aureus pneumonia - resolved pseudomonas pneumonia MSSA pneumonia Leukocytosis Fever d/c vanc, diflucan cefepime x 7 days. was initially planning stop date 06/25. now re-culture blood, sputum will send procalcitonin level and can use this to trend. Pertinent culture 06/20 - blood cx NGTD 06/15 - MSSA, PSAE 05/27 - sputum - MSSA 04/27 - pansensitive staph aureus 04/27 blood cultures 2 negative 04/25 - urine -no growth 04/19 - blood cultures 2 out of 4 - staph aureus 04/19 - sputum - staph aureus 04/08 - sputum - staph aureus 04/03 - sputum - staph aureus 03/30 - sputum- -staph aureus 03/27 - sputum - staph aureus 03/26 - blood - staph hominis On vancomycin 2 g IV every 12 are since 04/19 - 04/29 Azactam 04/27 through 04/29 Heme: Leukocytosis Monitor CBC/coags Monitor WBC Endo: Diabetes mellitus SSI for glycemic control with sliding scale insulin every 4 hours Levemir insulin 5 U hs, q6h SSI MSK Morbid obesity Weight loss encouraged DVT, GI prophylaxis -Bilateral lower extremity SCDs. IV Protonix 40 mg daily. Lovenox 40 mg sq BID LINES: -piv -keep batista for now. Js Garrett MD Jun 24, 2016 08:29
[2016-06-24] MEDS: POLYETHYLENE GLYCOL 17 GM PKG PO SCH ×2 (09:00→21:00)
[2016-06-24] MEDS: BENEPROTEIN POWDER 1 PACK G-TUBE SCH ×3 (09:00→17:18)
[2016-06-24] MEDS: SILVER SULFADIAZINE 1% CR 400 GM JAR TOPICAL SCH (09:00)
[2016-06-24] MEDS: BETAMETHASONE/CLOTRIMAZOLE CREAM 15 GM TOPICAL SCH ×2 (09:00→21:09)
[2016-06-24] MEDS: NYSTATIN 100,000 U/GM PWD 15 GM BTL TOPICAL SCH ×2 (09:00→21:00)
[2016-06-24] MEDS: SODIUM CHLORIDE 0.9% FLUSH 5 ML FLUSH IVF SCH (09:00)
[2016-06-24] MEDS: LACTOBACILLUS ACIDOPHILUS TAB PO SCH ×3 (10:06→17:18)
[2016-06-24] MEDS: BACLOFEN 10 MG TAB PO SCH (10:06)
[2016-06-24] MEDS: SENNOSIDES SYRUP 8.8 MG/5 ML CUP PO/TUBE SCH ×2 (10:07→21:00)
[2016-06-24] MEDS: PREGABALIN 75 MG CAP PO SCH ×2 (10:07→21:08)
[2016-06-24] MEDS: POTASSIUM CHLORIDE 10 MEQ CONTROLLED RELEASE TAB PO SCH (10:07)
[2016-06-24] MEDS: DOCUSATE SODIUM 100 MG/10 ML UDC PO SCH ×2 (10:07→21:00)
[2016-06-24] MEDS: PANTOPRAZOLE SOD 40 MG DELAYED RELEASE TAB PO SCH (10:07)
--- NOTE | 2016-06-24 11:08 | HHI.IDPN ---
Subjective Subjective Remarks Notes reviewed D/W RN Did 4 hours Tpiece yesterday, rested on the vent On T-piece this morning febrile most of the night WBC higher Last CXR 06/14 Sputum with PSAE and MSSA WBC stable Patient is a 50-year-old male admitted to the hospital for shortness of breath. There is a history of possible sleep apnea, and he has morbid obesity as well as diabetes. Patient . remained on the vent and he underwent tracheostomy May 01, 2016. He was treated several times for MSSA pneumonia. He was being followed from the ID standpoint, and we signed off the case on May 08. At that time he had completed a course of antibiotics for his pneumonia. He was also doing well and tolerating T piece, and has been off the respirator. Antibiotics Cefepime Lines PIV Past Medical History Reviewed Allergies: Coded Allergies: Penicillin (Verified Allergy, Severe, Swelling, 03/24/16) Tetanus Toxoid (Verified Allergy, Unknown, Swelling, 03/24/16) Objective . Vital Signs Date Time Temp Pulse Resp B/P Pulse Ox O2 Delivery O2 Flow Rate FiO2 06/24/16 10:00 45 06/24/16 09:43 89 T-piece 6.00 35 06/24/16 08:18 92 45 06/24/16 08:00 45 06/24/16 07:00 91 Mechanical Ventilator 8.00 06/24/16 06:00 102 06/24/16 04:15 97 45 06/24/16 04:00 45 06/24/16 04:00 100 06/24/16 04:00 100.9 100 32 91/52 100 06/24/16 02:00 100 06/24/16 01:51 94 45 06/24/16 00:00 100.2 101 22 100/44 98 06/24/16 00:00 45 06/24/16 00:00 101 06/23/16 22:16 92 45 06/23/16 22:00 106 06/23/16 20:00 45 06/23/16 20:00 92 45 06/23/16 20:00 100.8 112 36 93/61 95 06/23/16 20:00 95 Mechanical Ventilator 45 06/23/16 20:00 112 06/23/16 19:00 90 T-Piece 9.00 40 06/23/16 17:13 98 T-piece 7.00 50 06/23/16 16:00 100.0 102 30 102/61 95 06/23/16 16:00 45 06/23/16 12:00 99.7 82 25 93/53 93 06/23/16 12:00 45 06/23/16 06/23/16 06/24/16 15:00 23:00 07:00 Intake Total 733 ml 480 ml 630 ml Output Total 2100 ml 1500 ml 1000 ml Balance -1367 ml -1020 ml -370 ml Intake Oral 450 ml 480 ml 480 ml IV Total 283 ml 0 ml 150 ml Output Urine Total 2100 ml 1500 ml 1000 ml # Bowel Movements 0 1 0 . Laboratory Tests Test 06/23/16 06/24/16 03:30 03:50 White Blood Count 15.9 TH/MM3 24.3 TH/MM3 Red Blood Count 3.47 MIL/MM3 3.79 MIL/MM3 Hemoglobin 9.7 GM/DL 10.2 GM/DL Hematocrit 29.8 % 32.2 % Mean Corpuscular Volume 85.8 FL 84.9 FL Mean Corpuscular Hemoglobin 28.1 PG 27.0 PG Mean Corpuscular Hemoglobin 32.7 % 31.8 % Concent Red Cell Distribution Width 17.6 % 17.1 % Platelet Count 476 TH/MM3 508 TH/MM3 Mean Platelet Volume 7.8 FL 7.9 FL Laboratory Tests Test 06/23/16 06/24/16 03:30 03:50 Sodium Level 137 MEQ/L 138 MEQ/L Potassium Level 3.8 MEQ/L 3.7 MEQ/L Chloride Level 99 MEQ/L 99 MEQ/L Carbon Dioxide Level 28.4 MEQ/L 32.6 MEQ/L Anion Gap 10 MEQ/L 6 MEQ/L Blood Urea Nitrogen 6 MG/DL 4 MG/DL Creatinine 0.45 MG/DL 0.50 MG/DL Estimat Glomerular Filtration 199 ML/MIN 176 ML/MIN Rate Random Glucose 83 MG/DL 109 MG/DL Calcium Level 9.0 MG/DL 9.3 MG/DL Imaging Abdomen X-Ray 06/19/16 0000 Signed Impressions: Service Date/Time: Sunday, June 19, 2016 10:43 - CONCLUSION: Gastric tube tip does not cross the diaphragm and the side port is approximately 8 cm above the diaphragm. Chano Goodwin MD Chest X-Ray 06/14/16 0400 Signed Impressions: Service Date/Time: June 03:48 - CONCLUSION: Significant improvement of the lungs with minimal residual disease the right lower lobe. Wale Dalal MD Abdomen X-Ray 06/12/16 0000 Signed Impressions: Service Date/Time: Sunday, June 12, 2016 17:57 - CONCLUSION: 1. Nasogastric tube in place with the tip projected over the distal stomach. 2. Unremarkable bowel gas pattern. Genaro Garcia MD Lower Extremity Ultrasound 06/04/16 0000 Signed Impressions: Service Date/Time: Saturday, June 04, 2016 14:54 - CONCLUSION: 1. No DVT identified. Dc Barton MD Liver Ultrasound 05/09/16 0000 Signed Impressions: Service Date/Time: Monday, May 09, 2016 22:28 - CONCLUSION: 1. Enlarged, fatty liver. 2. Small stones or tumefactive sludge adherent to one of the gallbladder arcos. 3. Splenomegaly. 4. Pancreas is obscured by overlying bowel gas and patient's body habitus. Arthur Kennedy MD Chest CT 03/28/16 0836 Signed Impressions: Service Date/Time: Monday, March 28, 2016 09:57 - CONCLUSION: Development areas of air bronchograms and consolidation more prominent in the right and left posterior basilar segments of the lower lobes. ET tube above the chanelle. Bernard Hartman MD CT Angiography 03/24/16 1121 Signed Impressions: Service Date/Time: Thursday, March 24, 2016 12:47 - CONCLUSION: 1. There is respiratory motion artifact but no PE is identified through most of the segmental level pulmonary arteries. 2. Mildly enlarged main pulmonary artery may indicate pulmonary arterial hypertension. 3. 11 mm left lower lobe noncalcified pulmonary nodule. Suggest correlation with any prior imaging studies that could confirm longer-term stability. If none are available consider short-term followup noncontrast chest CT in approximately 3 months. Ubaldo Rodas MD Chest X-Ray 05/03/16 0600 Signed Impressions: Service Date/Time: May 04:08 - CONCLUSION: 1. Subsegmental airspace disease in the lungs. Cardiomegaly. Kyle Lorenzo MD Abdomen X-Ray 05/01/16 0000 Signed Impressions: Service Date/Time: Sunday, May 01, 2016 17:28 - CONCLUSION: No evidence of obstruction. Feeding tube overlies the distal stomach, May have to be advanced slightly to reach the duodenum. Nick Jon MD Chest CT 03/28/16 0836 Signed Impressions: Service Date/Time: Monday, March 28, 2016 09:57 - CONCLUSION: Development areas of air bronchograms and consolidation more prominent in the right and left posterior basilar segments of the lower lobes. ET tube above the chanelle. Bernard Hartman MD CT Angiography 03/24/16 1121 Signed Impressions: Service Date/Time: Thursday, March 24, 2016 12:47 - CONCLUSION: 1. There is respiratory motion artifact but no PE is identified through most of the segmental level pulmonary arteries. 2. Mildly enlarged main pulmonary artery may indicate pulmonary arterial hypertension. 3. 11 mm left lower lobe noncalcified pulmonary nodule. Suggest correlation with any prior imaging studies that could confirm longer-term stability. If none are available consider short-term followup noncontrast chest CT in approximately 3 months. Ubaldo Rodas MD Physical Exam GENERAL: Awake and alert, obese, on the vent, not in distress SKIN: Warm and moist. No generalized rash HEENT: [place] conjunctivae, no petechia or hemorrhage. No scleral icterus. NECK: Large and thick. S/P trach, site ok; some blood tinged drainage around site CHEST: Coarse BS eufemia, equal breath sounds. R breast bigger that L CARDIAC: regular rate and rhythm, no murmur ABDOMEN: soft, obese, (+) BS and normoactive, no tenderness, no guarding or rebound. : Becker in place, urine looks clear MUSCULOSKELETAL: Extremities without clubbing, cyanosis. Mild edema NEUROLOGICAL: Awake and interacting. stable PSYCH: Awake, cooperative LINE: PIV no evidence of infection : Becker in place, urine looks clear Assessment & Plan Remarks IMPRESSION Recurrent respiratory failure due to pulmonary edema - CXR better New PNA: PSAE and MSSA Fevers, etiology? - possible due to pulmonary, has PSAE and Staph aureus in sputum - ?atelectasis, pluffing now that he is doing Tpiece Leukocytosis, up again Pneumonia, C/S MSSA, S/P Rx x 2 JACOB Morbid obesity Allergy to PCN, swelling RECOMMENDATION Repeat C/S CXR Follow CBC Monitor temps Monitor progress Continue Cefepime which will cover PSAE and MSSA - give 7 days Weaning from vent per CCM D/W Elisha Archer MD Jun 24, 2016 11:08
--- NOTE | 2016-06-24 12:16 | RADRPT ---
EXAM DATE/TIME: 06/24/2016 11:01 [facility] COMPARISON: CHEST SINGLE AP, June 14, 2016, 3:48. INDICATIONS : Fever. MEDICAL HISTORY : Diabetes mellitus type II. SURGICAL HISTORY : None. ENCOUNTER: Initial ACUITY: 1 day PAIN SCORE: Non-responsive. LOCATION: Bilateral chest. FINDINGS: A single view of the chest demonstrates the lungs to be symmetrically aerated without evidence of mas s, infiltrate or effusion. The cardiomediastinal contours are unremarkable. Osseous structures are intact. There is a tracheostomy tube in good position. CONCLUSION: No acute disease. Ubaldo Coombs MD on June 24, 2016 at 12:14 Board Certified Radiologist. This report was verified electronically.
--- NOTE | 2016-06-24 12:27 | HHI.PR ---
Subjective Remarks acute respiratory failure DOING WELL , NOW ON TTUBE tracheostomy done Objective Vital Signs Date Time Temp Pulse Resp B/P Pulse Ox O2 Delivery O2 Flow Rate FiO2 06/24/16 10:00 45 06/24/16 09:43 89 T-piece 6.00 35 06/24/16 08:18 92 45 06/24/16 08:00 45 06/24/16 07:00 91 Mechanical Ventilator 8.00 06/24/16 06:00 102 06/24/16 04:15 97 45 06/24/16 04:00 45 06/24/16 04:00 100 06/24/16 04:00 100.9 100 32 91/52 100 06/24/16 02:00 100 06/24/16 01:51 94 45 06/24/16 00:00 100.2 101 22 100/44 98 06/24/16 00:00 45 06/24/16 00:00 101 06/23/16 22:16 92 45 06/23/16 22:00 106 06/23/16 20:00 45 06/23/16 20:00 92 45 06/23/16 20:00 100.8 112 36 93/61 95 06/23/16 20:00 95 Mechanical Ventilator 45 06/23/16 20:00 112 06/23/16 19:00 90 T-Piece 9.00 40 06/23/16 17:13 98 T-piece 7.00 50 06/23/16 16:00 100.0 102 30 102/61 95 06/23/16 16:00 45 I/O 06/23/16 06/23/16 06/23/16 06/24/16 06/24/16 06/24/16 07:00 15:00 23:00 07:00 15:00 23:00 Intake Total 515 ml 733 ml 480 ml 630 ml Output Total 1000 ml 2100 ml 1500 ml 1000 ml Balance -485 ml -1367 ml -1020 ml -370 ml Intake Oral 240 ml 450 ml 480 ml 480 ml IV Total 275 ml 283 ml 0 ml 150 ml Output Urine Total 1000 ml 2100 ml 1500 ml 1000 ml # Bowel Movements 1 0 1 0 Result Diagram: 06/24/16 0350 06/24/16 0350 Objective Remarks GENERAL: SKIN: Warm and dry.on vent support HEAD: Atraumatic. Normocephalic. EYES: Pupils equal and round. No scleral icterus. No injection or drainage. ENT: No nasal bleeding or discharge. Mucous membranes pink and moist. NECK: Trachea midline. No JVD. CARDIOVASCULAR: Regular rate and rhythm. RESPIRATORY: No accessory muscle use. Clear to auscultation. Breath sounds equal bilaterally. GASTROINTESTINAL: Abdomen soft, non-tender, nondistended. Hepatic and splenic margins not palpable. MUSCULOSKELETAL: Extremities without clubbing, cyanosis, or edema. No obvious deformities. NEUROLOGICAL: Awake and alert. No obvious cranial nerve deficits. Motor grossly within normal limits. Five out of 5 muscle strength in the arms and legs. Normal speech. PSYCHIATRIC: Appropriate mood and affect; insight and judgment normal. Assessment and Plan Assessment and Plan respiratory failure morbid obesity plan O2 NEEDED pulm toilet prognosis guarded Orlando Perry MD Jun 24, 2016 12:27
[2016-06-24] MEDS: oxyCODONE HCL ORAL CONC 20 MG/ML SYRINGE PO PRN (13:00)
[2016-06-24 15:56] LABS: BLOOD, URINE TRACE (NEG); GLUCOSE,URINE NEG (NEG); KETONE, URINE TRACE mg/dL (NEG); MUCUS URINE FEW /lpf (OCC); NITRITE,URINE NEG (NEG); PH, URINE 6.5 (5.0-8.5); SQUAMOUS EPITHELIAL CELL URINE <1 /hpf (0-5); URINE COLOR YELLOW (YELLW/STRAW)
[2016-06-24 15:57] LABS: COMMENT (UR) CATH-CULT NOT IND; CULTURE IF INDICATED CATH CULTURE NOT IND
[2016-06-24] MEDS: INSULIN DETEMIR 100 UNITS/ML VIAL SQ SCH (21:00)
[2016-06-25] VITALS (10 sets, daily range): BP systolic 91–107; BP diastolic 46–68; PULSE 88–96; RESP 24–34; TEMP 98.8–99.5; O2SAT 90–96
[2016-06-25] MEDS: ARTIFICIAL TEARS OPTH SOLN 15 ML BTL EACH EYE SCH ×6 (01:42→22:00)
[2016-06-25 04:17] LABS: HEMATOCRIT 31.2 % (39.0-51.0); MEAN CELL VOLUME 85.2 FL (80.0-100.0); MEAN CORPUSCULAR HEMOGLOBIN 27.2 PG (27.0-34.0); MEAN CORPUSCULAR HGB CONC 31.9 % (32.0-36.0); PLATELET COUNT 501 TH/MM3 (150-450); RED BLOOD COUNT 3.66 MIL/MM3 (4.50-5.90); RED CELL DISTRIBUTION WIDTH 17.6 % (11.6-17.2); REVIEW FLAG FINAL; WHITE BLOOD COUNT 17.2 TH/MM3 (4.0-11.0)
[2016-06-25 04:24] LABS: BICARBONATE 31.3 MEQ/L (21.0-32.0); POTASSIUM 3.9 MEQ/L (3.5-5.1)
--- NOTE | 2016-06-25 04:34 | RADRPT ---
EXAM DATE/TIME: 06/25/2016 03:27 [facility] COMPARISON: CHEST SINGLE AP, June 24, 2016, 11:01. INDICATIONS : Shortness of breath. MEDICAL HISTORY : Diabetes mellitus type II. SURGICAL HISTORY : Tracheostomy. ENCOUNTER: Subsequent ACUITY: 2 months PAIN SCORE: Non-responsive. LOCATION: Bilateral chest FINDINGS: The tracheostomy tube remains in place. No definite pneumothorax. No significant pulmonary infiltrate s are seen. These findings are stable compared to the prior study. The heart size is stable. No defin ite pleural effusions. The bony structures are stable. CONCLUSION: No significant interval change. Rodrigo Martinez MD on June 25, 2016 at 4:32 Board Certified Radiologist. This report was verified electronically.
[2016-06-25] MEDS: ENOXAPARIN SODIUM 40 MG/0.4 ML SYRINGE SQ SCH ×2 (05:21→17:38)
[2016-06-25] MEDS: POLYETHYLENE GLYCOL 17 GM PKG PO SCH ×2 (08:00→20:13)
[2016-06-25] MEDS: CHLORHEXIDINE 0.12% (ORAL KIT) 15 ML CUP MT SCH ×2 (08:00→20:00)
[2016-06-25] MEDS: SODIUM CHLORIDE 0.9% FLUSH 5 ML FLUSH IVF SCH (08:49)
[2016-06-25] MEDS: LACTOBACILLUS ACIDOPHILUS TAB PO SCH ×3 (08:50→17:38)
[2016-06-25] MEDS: POTASSIUM CHLORIDE 10 MEQ CONTROLLED RELEASE TAB PO SCH (08:51)
[2016-06-25] MEDS: PREGABALIN 75 MG CAP PO SCH ×2 (08:51→20:53)
[2016-06-25] MEDS: PANTOPRAZOLE SOD 40 MG DELAYED RELEASE TAB PO SCH (08:51)
[2016-06-25] MEDS: BACLOFEN 10 MG TAB PO SCH (08:51)
[2016-06-25] MEDS: SENNOSIDES SYRUP 8.8 MG/5 ML CUP PO/TUBE SCH ×2 (08:52→20:13)
[2016-06-25] MEDS: BETAMETHASONE/CLOTRIMAZOLE CREAM 15 GM TOPICAL SCH ×2 (09:00→20:53)
[2016-06-25] MEDS: NYSTATIN 100,000 U/GM PWD 15 GM BTL TOPICAL SCH ×2 (09:00→20:53)
[2016-06-25] MEDS: BENEPROTEIN POWDER 1 PACK G-TUBE SCH ×3 (09:00→17:39)
[2016-06-25] MEDS: SILVER SULFADIAZINE 1% CR 400 GM JAR TOPICAL SCH (09:00)
[2016-06-25] MEDS: DOCUSATE SODIUM 100 MG/10 ML UDC PO SCH ×2 (09:00→20:13)
--- NOTE | 2016-06-25 11:48 | PD.TRANSFR ---
Transfer Summary Admission Date Mar 24, 2016 at 16:02 Admitting Diagnosis hypoxia, rule out pulmonary hypertension, Diagnoses: (1) Acute hypercapnic respiratory failure Diagnosis: Principal (2) Staphylococcus aureus pneumonia Diagnosis: Principal (3) Encephalopathy Diagnosis: Principal (4) JACOB (obstructive sleep apnea) Diagnosis: Secondary (5) Diabetes mellitus type 2 in obese Diagnosis: Secondary (6) Morbid obesity with BMI of 50.0-59.9, adult Diagnosis: Secondary (7) Obesity hypoventilation syndrome Diagnosis: Secondary Transfer Summary/Subjective Patient is a 50 years old obese male with past medical history significant for undiagnosed sleep apnea, super morbid obesity, type 2 diabetes was brought to the emergency department on 03/24/16 after feeling light headed and dizzy. On presentation here was found to be hypoxemic and ABG showed severe hypoxemia and hypercarbia. For a recent driving physical he was diagnosed with low oxygen saturations. Patient's oxygen saturation the ED was in the low 80s, which was confirmed on ABG with a oxygen saturation of 78% and PO2 of 46. CTA negative for PE. Patient was initiated on BiPAP therapy with consult to pulmonary Dr. Crane. His oxygenation improved but he continued to be hypercapnic. Today a.m. on nasal cannula his pH was 7.26 and PCO2 was increased at 99, patient was somnolent was placed back on BiPAP and repeat ABG at noon showed pH 7.26 PCO2 98 and pO2 70. This was on 16/02 BiPAP with FiO2 50%. Critical care was consulted. On my evaluation patient is somnolent but wakes up easily. I reduced the PEEP on BiPAP from 12-7 to facilitate better ventilation. A repeat ANG showed only minimal improvement, so decision made to intubate patient. Glidescope with #4 blade was used. Only propofol was used for induction. Initially I had a Grade 1-2 view, but I was unable to pass tube through the vocal cord to trachea in two attempts. Tube slipped out of Laryngeal opening both times. Dr Garrett intubated patient after NM paralysis with succinylcholine. Post intubation ABG showed improvement in hypercapnia and oxygenation. 03/27/16: Patient remains intubated heavily sedated with propofol and fentanyl. Remained severely hypoxemic on 100% FiO2, PEEP12, chest x-ray shows bibasilar infiltrates. Flagyl added. We'll give 1 dose of vancomycin-Adjust antibiotics according to cultures. Patient super morbid obesity may prevent Prone therapy 03/28: Remains hypoxic but ABG shows marginal improvement in oxygenation. WBC increasing 20.1 today. Start vancomycin scheduled. 03/29: Oxygenation is slightly improved. FiO2 reduced to 50% today. Chest x- ray remains unchanged. On sedation hold patient does wake up and follow commands. WBC count remains at 20 03/30 No acute events overnight. Sedated with Diprivan and Fentanyl. Had T: 100.1 at 4 am. WBC trending down 15.9 today from 20. 03/31 Patient remains sedated with Diprivan, Fentanyl and intubated. Tmax 100.1. Patient required increase O2 overnight now on ACV with PEEP: 12 and FIO2 70%. 04/01: Tmax 99.7. No bowel movement since admission. Patient has bowel sounds. Arousable on the ventilator. We'll attempt prone the patient paralyzed to increase oxygenation status. 04/02: MAXIMUM TEMPERATURE 100.9. Currently 97.7. 5 10 cc stools overnight. Placed on Roto prone yesterday. Saturations currently 94% on Flolan. Diuresed overnight. Creatinine still within normal limits. 04/03: Tmax 101. Currently 99.1. Positive BM. Did not tolerate not being unprone this AM. Saturations much improved prone. Tolerating tube feeding. 04/04: Tmax 100.8. Currently 98.8. +2 L past 24 hours. Attempt to on prone today. Positive BM. C. difficile negative. Remains paralyzed. 04/05: Remains sedated, orally intubated on neuromuscular blockade on mechanical ventilation. Remains on Rota prone bed. On insulin drip. 04/06: Remains sedated, orally intubated on neuromuscular blockade, on mechanical ventilation. Remains on Rota prone bed. Insulin drip continues. 04/07 Patient remains on Rotoprone bed sedated with Diprivan, Versed, Fentanyl in addition patient is on Nimbex. Afebrile. On Insulin drip 5u/hr. 04/08 Patient remains sedated and intubated and on Nimbex. Off insulin drip. On PRVC/AC with RR 15, TV 550, IT: 1.65, PEEP: 15 and FIO2 100%. T: 100.2 at 4 am. 04/09 Patient is sedated, intubated and remains on neuromuscular blockade. Vent setting unchanged. afebrile. 04/10 Patient remains sedated and intubated and on Nimbex. On PRVC/AC, RR 15, TV 500, PEEP: 15, FIO2 90%, IT:1.65, on Flolan drip. Remains on Rotoprone bed. 04/11 minimal improvement in oxygenation, FiO2 now at 75 - continue to improve oxygenation, worsening CXR 04/13/10 continue to improve oxygenation DC'd prone position last night improving oxygenation, Nimbex discontinued as well as prone position 04/16 Patient is sedated with Versed and Fentanyl and intubated. Off rotoprone bed. On PRVC/AC RR 15, TV 550, IT 1.65, PEEP:15, FIO2 50%. 04/17 Patient remains sedated with Versed and Fentanyl. Afebrile, tolerating tube feeds 04/18 No acute events overnight Sedated and intubated. Afebrile. On PRVC/AC RR 15 , TV 550, IT 1.65, PEEP:15, FIO2 60% 04/19: Spiking fever up to 101, pancultured and 1 dose of vancomycin given by ID. On weaning doses of Flolan. FiO2 down to 50% I have reduced PEEP to 14. Remains critically ill 04/20: No fever. Sputum cx with Staph -S pending. Fio2 50% PEEP remains at 14. TV increased to 650 to improve lung recruitment. On weaning dose of Flolan-DC after current bag 04/21:Afebrile. Hyponatremia resolving, the patient will be placed on free water flushes. 04/22:The patient had an episode of acute desaturation requiring FiO2 increased to 90%. Stat chest x-ray stat ABG aggressive pulmonary toileting and suctioning , resolution of symptoms FiO2 now 55%. ABGs within normal limits. 04/23: Tmax 99.5. Currently afebrile. O2 sat 50%. PEEP down to 13. One small bowel movement overnight. 04/24: Currently afebrile. O2 sat 45%. PEEP to 12. One BM. Tolerating tube feeds. 04/25: Afebrile. PEEP down to 11. Positive BM. Tolerating tube feeds. Awake on the ventilator with eyes open. 04/26: Afebrile. PEEP down to 10. Time to feeding. Awake and alert eyes open. 04/27: Suspected fever overnight. One bowel movement documented. Will decreased PEEP to 9. Awake and alert and follows commands. 04/28: Tmax 99.3. Currently afebrile. FiO2 increased to 70%. PEEP to 10. Awake and does follow commands. Positive BM 4 yesterday. 04/29: FiO2 down to 55%. Peak systolic 10. Awake and does follow commands. Positive BM 1 yesterday. Tolerating tube feeding. 04/30: No acute issues overnight . The patient continues to be sedated with plans for tracheostomy in the OR today. The patient follows commands when on sedation vacation. 05/01: Postop day 1 post tracheostomy tube placement, no issues overnight. Plan for CPAP trials today. 05/02: Afebrile. The patient continues on CPAP trial 15/5 , FiO2 .45%. The patient alert and responsive this a.m., continues on Precedex and fentanyl infusion. By mouth narcotics, and fentanyl patch instituted to transition all fentanyl infusion. PEG tube placement pending. 05/03: The patient's fentanyl infusion was discontinued last evening. Multimodal analgesia initiated. Patient continues on Precedex infusion, GCS 14 T. Plans today for PEG placement later on this afternoon. No acute issues overnight. 05/04 Tmax 101.0. The patient's PICC line was removed, peripheral IVs initiated. Blood, urine and sputum cultures obtained. Methylprednisolone continues to be weaned currently at 20 mg daily. Plan for weaning of Precedex infusion off today. Seroquel 25 mg twice a day added to medication regimen. The patient continues on CPAP trials. 05/05: Tmax 99.1. Overnight the patient was maintained on CPAP trials of 15/5/40% , the patient's respiratory rate continues to be low 30s, tolerated well. The sake early this a.m. the patient was noticed to have a episode of nausea and vomiting Zofran instituted. The patient continues on scheduled Reglan TID. Blood , sputum and urine cultures were obtained yesterday secondary to elevated temperature awaiting results. 05/06: The patient remains on T piece greater than 48 hours. The patient is alert oriented and cooperative. Trach site without erythema or drainage. Patient was noticed over the last 12 hours to have multiple bowel movements or in the night. Will D/C MiraLAX, lactulose and Reglan will be discontinued. Plan for possible transfer to LTAC facility. 05/07 no acute issues overnight tolerating TPs 05/27 shortly after midnight rapid response team was called due to patient's respiratory distress and hypercarbic respiratory failure with hypoxemia and cyanosis 05/27: Tracheostomy was exchanged this morning to a #6 Shiley fenestrated cuffed. Currently on PRVC with PEEP of 10. Saturations are much improved. Awake and alert and following commands. Requesting diet. 05/28: Awake and alert. On mechanical ventilation via tracheostomy. Following commands. 05/29: Awake and alert. On mechanical ventilation via tracheostomy. Tolerating PO diet. Following commands. 05/30: Awake and alert. On mechanical ventilation via tracheostomy. Tolerating by mouth diet. Following commands. 05/31: Remains on mechanical ventilation via tracheostomy. Tolerating C Pap/ pressure support. Following commands. Tolerating by mouth diet. 06/01: Remains on mechanical ventilation via tracheostomy. Awake and alert. Tolerated C Pap and pressure support however gets extremely tachypneic on dropping pressure-support to +5. Tolerating by mouth diet 06/02: Tmax 99.5. Currently 99. Currently on T piece trial. Condom catheter placed. 06/03: Currently T piece trial. Saturations around 98 %. Appears comfortable. He is in no acute distress. No issues overnight CCM reconsult 06/12/1606/12: Hypoxemic respiratory failure and difficulty bag ventilating. Rushed to ICU with acceptable sats and immediately intubated through the mouth. Trach tube removed. Good ventilation immediately restored. CXR with diffuse pulmonary edema - question negative pressure. 06/13: Persistent diffuse infiltrates, MSSA sputum, start abx. Hydrate for oliguria. Convert to APRV for recruitment. 06/14: CXR has cleared and well expanded on APRV. Will work to convert to conventional and revise trach. 06/15: CXR clear. MSSA colonized but fever persists. Treat. Need to revise trach. 06/16: Breathing comfortably on SBT /. Will work to extubation but will probably need a #8 trach replaced. 06/17: Awake and alert, remains orally intubated on mechanical ventilation. Daily C Pap trials. We will discuss with Dr. Rosenberg regarding replacing tracheostomy in OR. 06/18: Awake and alert, remains orally intubated on mechanical ventilation. Daily C Pap trials. Awaiting tracheostomy with Dr. Rosenberg in OR 06/19: complaining of headaches today. and right leg tingling. plan for possible trach today. 06/20: continues on low-dose norepinephrine. wbc downtrending. vanc/diflucan added yesterday. going for trach today in OR. 06/21: trach yesterday in OR. wbc downtrending. still on low-dose levophed, but blood cultures negative so far. 06/22: off levophed. blood cultures negative x 48h. 06/23: no clinical improvements. OOB to stretcher chair. 06/24: got OOB to stretcher chair yesterday. wbc significantly elevated to 24k today, febrile overnight. more secretions noted today by RT and bedside RN. 06/25: Awake alert on TP, on stretcher chair. WBC improving from 24.3 to 17.2. He is breathing comfortably. Objective Vital Signs Date Time Temp Pulse Resp B/P Pulse Ox O2 Delivery O2 Flow Rate FiO2 06/25/16 08:35 94 T-piece 40 06/25/16 06:00 91 06/25/16 04:00 99.5 24 93/66 06/24/16 21:49 6.00 Intake and Output 06/24/16 06/24/16 06/25/16 08:00 16:00 00:00 Intake Total 630 ml 460 ml 725 ml Output Total 1000 ml 1000 ml 1000 ml Balance -370 ml -540 ml -275 ml Result Diagram: 06/25/16 0330 06/25/16 0330 Imaging Last Impressions Chest X-Ray 05/28/16 0600 Signed Impressions: Service Date/Time: Saturday, May 28, 2016 04:49 - CONCLUSION: Unchanged bibasilar densities. Wale Dalal MD Liver Ultrasound 05/09/16 0000 Signed Impressions: Service Date/Time: Monday, May 09, 2016 22:28 - CONCLUSION: 1. Enlarged, fatty liver. 2. Small stones or tumefactive sludge adherent to one of the gallbladder arcos. 3. Splenomegaly. 4. Pancreas is obscured by overlying bowel gas and patient's body habitus. Arthur Kennedy MD Abdomen X-Ray 05/01/16 0000 Signed Impressions: Service Date/Time: Sunday, May 01, 2016 17:28 - CONCLUSION: No evidence of obstruction. Feeding tube overlies the distal stomach, May have to be advanced slightly to reach the duodenum. Nick Jon MD Chest CT 03/28/16 0836 Signed Impressions: Service Date/Time: Monday, March 28, 2016 09:57 - CONCLUSION: Development areas of air bronchograms and consolidation more prominent in the right and left posterior basilar segments of the lower lobes. ET tube above the chanelle. Bernard Hartman MD CT Angiography 03/24/16 1121 Signed Impressions: Service Date/Time: Thursday, March 24, 2016 12:47 - CONCLUSION: 1. There is respiratory motion artifact but no PE is identified through most of the segmental level pulmonary arteries. 2. Mildly enlarged main pulmonary artery may indicate pulmonary arterial hypertension. 3. 11 mm left lower lobe noncalcified pulmonary nodule. Suggest correlation with any prior imaging studies that could confirm longer-term stability. If none are available consider short-term followup noncontrast chest CT in approximately 3 months. Ubaldo Rodas MD Objective Remarks Gen: middle-aged super morbidly obese male, sitting on a stretcher, on TP HEENT: nc. at. mucous membranes moist. Neck: trach with clear secretions. Chest: PRVC. equal chest rise. CARDIOVASCULAR: normal rate, regular rhythm. sinus by telemetry. Abd: Abdomen soft, obese, nontender. Severe central obesity, PEG tube site with thick yellowish drainage MUSCULOSKELETAL: Extremities with trace + nonpitting bilateral lower extremity edema. NEUROLOGICAL: Anxious, opens eyes, tracks.Moves 4 to command, tracks with eyes, nods head. Procedures 04/30/16 - tracheostomy by Dr. Reyes 05/03/16 - EGD with PEG placement by Dr. Faith 06/09/16 - PEG removal 06/21/16- repeat tracheostomy by Dr. Cuellar A/P Assessment and Plan Assessment: 50yM with super morbid obesity and acute on chronic respiratory failure, now requiring replacement of tracheostomy. Also severely deconditioned. need aggressive physical therapy. s/p re-do trach in OR 06/20. Improved from recent septic shock, but now with leukocytosis and fever again, improving WBC count today, no fever. 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 Pulm: Acute hypercarbic hypoxemic respiratory failure-resolved JACOB [facility] History of staph aureus pneumonia/HCAP ARDS Tracheostomy exchange to #6 Shiley fenestrated cuffed on 05/27 -> removed. Re-intubation through mouth 06/12. Revise trach with Dr. Cuellar 06/20 Ventilator bundle Bronchodilator therapy every 6 hours With Atrovent nebs every 2 hours when necessary dyspnea Pulmonary Dr. Perry Tolerating CPAP now CV: Monitor HR and BP keep MAP>65mmHg 2-D echo 03/26 EF 60%. No regional wall motion abnormality. Mild MR/TR. /FEN: Monitor renal function, I/O's, electrolytes replacement per protocol. GI: Constipation-resolved Moderate protein calorie malnutrition Nausea and vomiting Continue oral diet starting 05/29 Protonix 40mg daily Senna and Colace twice a day PEG tube placement- 05/03 Zofran 4 mg every 6 hours when necessary ID: Staph aureus pneumonia - resolved pseudomonas pneumonia MSSA pneumonia Leukocytosis Fever d/cd vanc, diflucan Continue cefepime x 6 more days. was initially planning stop date 06/25. f/u re-culture blood, sputum will send procalcitonin level and can use this to trend. Pertinent culture 06/20 - blood cx NGTD 06/15 - MSSA, PSAE 05/27 - sputum - MSSA 04/27 - pansensitive staph aureus 04/27 blood cultures 2 negative 04/25 - urine -no growth 04/19 - blood cultures 2 out of 4 - staph aureus 04/19 - sputum - staph aureus 04/08 - sputum - staph aureus 04/03 - sputum - staph aureus 03/30 - sputum- -staph aureus 03/27 - sputum - staph aureus 03/26 - blood - staph hominis On vancomycin 2 g IV every 12 are since 04/19 - 04/29 Azactam 04/27 through 04/29 Heme: Leukocytosis-improving Monitor CBC/coags Monitor WBC Endo: Diabetes mellitus SSI for glycemic control with sliding scale insulin every 4 hours Levemir insulin 5 U hs, q6h SSI MSK Morbid obesity Weight loss encouraged DVT, GI prophylaxis -Bilateral lower extremity SCDs. IV Protonix 40 mg daily. Lovenox 40 mg sq BID LINES: -piv -keep batista for now. [facility] to assume care in am 06/26/16. Reconsult CCM as needed Level 3 Baltazar Conner MD Jun 25, 2016 11:48
[2016-06-25] MEDS: CEFEPIME INJ 2,000 MG in SODIUM CHLORIDE 0.9% INJ 100 ML IV SCH (12:00)
--- NOTE | 2016-06-25 12:41 | HHI.IDPN ---
Subjective Subjective Remarks Notes reviewed Temps better overnight He is on T-piece C/O back pain - has been up he asaid x 3 hours CXR clear Nothing new on C/S yet WBC slightly better BC negative UA ok Patient is a 50-year-old male admitted to the hospital for shortness of breath. There is a history of possible sleep apnea, and he has morbid obesity as well as diabetes. Patient . remained on the vent and he underwent tracheostomy May 01, 2016. He was treated several times for MSSA pneumonia. He was being followed from the ID standpoint, and we signed off the case on May 08. At that time he had completed a course of antibiotics for his pneumonia. He was also doing well and tolerating T piece, and has been off the respirator. Antibiotics Cefepime Past Medical History Reviewed Allergies: Coded Allergies: Penicillin (Verified Allergy, Severe, Swelling, 03/24/16) Tetanus Toxoid (Verified Allergy, Unknown, Swelling, 03/24/16) Objective . Vital Signs Date Time Temp Pulse Resp B/P Pulse Ox O2 Delivery O2 Flow Rate FiO2 06/25/16 08:35 94 T-piece 40 06/25/16 07:00 93 T-Piece 06/25/16 06:00 91 06/25/16 04:00 90 06/25/16 04:00 99.5 90 24 93/66 90 06/25/16 02:00 91 06/25/16 00:00 94 06/25/16 00:00 99.1 94 24 91/66 96 06/24/16 22:00 91 06/24/16 21:49 100 T-piece 6.00 35 06/24/16 20:00 99.1 86 24 85/51 97 06/24/16 20:00 88 06/24/16 19:00 93 T-Piece 4.00 35 06/24/16 16:00 99.3 94 25 106/61 96 06/24/16 16:00 45 06/24/16 06/24/16 06/25/16 15:00 23:00 07:00 Intake Total 460 ml 725 ml 1085 ml Output Total 1000 ml 1000 ml 1800 ml Balance -540 ml -275 ml -715 ml Intake Oral 360 ml 720 ml 960 ml IV Total 100 ml 5 ml 125 ml Output Urine Total 1000 ml 1000 ml 1800 ml # Bowel Movements 1 0 0 . Laboratory Tests Test 06/24/16 06/25/16 03:50 03:30 White Blood Count 24.3 TH/MM3 17.2 TH/MM3 Red Blood Count 3.79 MIL/MM3 3.66 MIL/MM3 Hemoglobin 10.2 GM/DL 10.0 GM/DL Hematocrit 32.2 % 31.2 % Mean Corpuscular Volume 84.9 FL 85.2 FL Mean Corpuscular Hemoglobin 27.0 PG 27.2 PG Mean Corpuscular Hemoglobin 31.8 % 31.9 % Concent Red Cell Distribution Width 17.1 % 17.6 % Platelet Count 508 TH/MM3 501 TH/MM3 Mean Platelet Volume 7.9 FL 8.0 FL Laboratory Tests Test 06/24/16 06/25/16 03:50 03:30 Sodium Level 138 MEQ/L 139 MEQ/L Potassium Level 3.7 MEQ/L 3.9 MEQ/L Chloride Level 99 MEQ/L 102 MEQ/L Carbon Dioxide Level 32.6 MEQ/L 31.3 MEQ/L Anion Gap 6 MEQ/L 6 MEQ/L Blood Urea Nitrogen 4 MG/DL 4 MG/DL Creatinine 0.50 MG/DL 0.35 MG/DL Estimat Glomerular Filtration 176 ML/MIN 266 ML/MIN Rate Random Glucose 109 MG/DL 105 MG/DL Calcium Level 9.3 MG/DL 9.3 MG/DL Procalcitonin LESS THAN 0.05 ng/mL Microbiology Date/Time Procedure Status Source Growth 06/24/16 11:40 Aerobic Blood Culture - Preliminary Resulted Blood Peripheral NO GROWTH IN 1 DAY 06/24/16 11:40 Anaerobic Blood Culture - Preliminary Resulted Blood Peripheral NO GROWTH IN 1 DAY 06/24/16 11:55 Aerobic Blood Culture - Preliminary Resulted Blood Peripheral NO GROWTH IN 1 DAY 06/24/16 11:55 Anaerobic Blood Culture - Preliminary Resulted Blood Peripheral NO GROWTH IN 1 DAY 06/24/16 15:20 Gram Stain - Final Resulted Sputum Endotracheal 06/24/16 15:20 Sputum Culture Resulted Sputum Endotracheal Pending Imaging Abdomen X-Ray 06/19/16 0000 Signed Impressions: Service Date/Time: Sunday, June 19, 2016 10:43 - CONCLUSION: Gastric tube tip does not cross the diaphragm and the side port is approximately 8 cm above the diaphragm. Chano Goodwin MD Chest X-Ray 06/14/16 0400 Signed Impressions: Service Date/Time: June 03:48 - CONCLUSION: Significant improvement of the lungs with minimal residual disease the right lower lobe. Wale Dalal MD Abdomen X-Ray 06/12/16 0000 Signed Impressions: Service Date/Time: Sunday, June 12, 2016 17:57 - CONCLUSION: 1. Nasogastric tube in place with the tip projected over the distal stomach. 2. Unremarkable bowel gas pattern. Genaro Garcia MD Lower Extremity Ultrasound 06/04/16 0000 Signed Impressions: Service Date/Time: Saturday, June 04, 2016 14:54 - CONCLUSION: 1. No DVT identified. Dc Barton MD Liver Ultrasound 05/09/16 0000 Signed Impressions: Service Date/Time: Monday, May 09, 2016 22:28 - CONCLUSION: 1. Enlarged, fatty liver. 2. Small stones or tumefactive sludge adherent to one of the gallbladder arcos. 3. Splenomegaly. 4. Pancreas is obscured by overlying bowel gas and patient's body habitus. Arthur Kennedy MD Chest CT 03/28/16 0836 Signed Impressions: Service Date/Time: Monday, March 28, 2016 09:57 - CONCLUSION: Development areas of air bronchograms and consolidation more prominent in the right and left posterior basilar segments of the lower lobes. ET tube above the chanelle. Bernard Hartman MD CT Angiography 03/24/16 1121 Signed Impressions: Service Date/Time: Thursday, March 24, 2016 12:47 - CONCLUSION: 1. There is respiratory motion artifact but no PE is identified through most of the segmental level pulmonary arteries. 2. Mildly enlarged main pulmonary artery may indicate pulmonary arterial hypertension. 3. 11 mm left lower lobe noncalcified pulmonary nodule. Suggest correlation with any prior imaging studies that could confirm longer-term stability. If none are available consider short-term followup noncontrast chest CT in approximately 3 months. Ubaldo Rodas MD Chest X-Ray 05/03/16 0600 Signed Impressions: Service Date/Time: May 04:08 - CONCLUSION: 1. Subsegmental airspace disease in the lungs. Cardiomegaly. Kyle Lorenzo MD Abdomen X-Ray 05/01/16 0000 Signed Impressions: Service Date/Time: Sunday, May 01, 2016 17:28 - CONCLUSION: No evidence of obstruction. Feeding tube overlies the distal stomach, May have to be advanced slightly to reach the duodenum. Nick Jon MD Chest CT 03/28/16 0836 Signed Impressions: Service Date/Time: Monday, March 28, 2016 09:57 - CONCLUSION: Development areas of air bronchograms and consolidation more prominent in the right and left posterior basilar segments of the lower lobes. ET tube above the chanelle. Bernard Hartman MD CT Angiography 03/24/16 1121 Signed Impressions: Service Date/Time: Thursday, March 24, 2016 12:47 - CONCLUSION: 1. There is respiratory motion artifact but no PE is identified through most of the segmental level pulmonary arteries. 2. Mildly enlarged main pulmonary artery may indicate pulmonary arterial hypertension. 3. 11 mm left lower lobe noncalcified pulmonary nodule. Suggest correlation with any prior imaging studies that could confirm longer-term stability. If none are available consider short-term followup noncontrast chest CT in approximately 3 months. Ubaldo Rodas MD Physical Exam GENERAL: Awake and alert, obese, on T-piece, not in distress SKIN: Warm and moist. No generalized rash HEENT: [place] conjunctivae, no petechia or hemorrhage. No scleral icterus. NECK: Large and thick. S/P trach, site ok; previous trach still open. CHEST: Coarse BS eufemia, equal breath sounds CARDIAC: regular rate and rhythm, no murmur ABDOMEN: soft, obese, (+) BS and normoactive, no tenderness, no guarding or rebound. : Becker in place, urine looks clear MUSCULOSKELETAL: Extremities without clubbing, cyanosis. Mild edema NEUROLOGICAL: Awake and interacting. stable PSYCH: Awake, cooperative LINE: PIV with no evidence of infection : Becker in place, urine looks clear Assessment & Plan Remarks IMPRESSION Recurrent respiratory failure due to pulmonary edema - CXR better New PNA: PSAE and MSSA Fevers, etiology? - possible due to pulmonary, has PSAE and Staph aureus in sputum - ?atelectasis, pluggng now that he is doing Tpiece - CXR clear - ?drug Leukocytosis, up again Pneumonia, C/S MSSA, S/P Rx x 2 JAOCB Morbid obesity Allergy to PCN, swelling RECOMMENDATION Follow C/S Stop Cefepime - he has had 7 days Abx today Follow CBC Monitor temps Monitor progress Weaning from vent per CCM Elisha Painter MD Jun 25, 2016 12:41
--- NOTE | 2016-06-25 17:36 | HHI.PR ---
Subjective Remarks acute respiratory failure DOING WELL , NOW ON TTUBE tracheostomy done Objective Vital Signs Date Time Temp Pulse Resp B/P Pulse Ox O2 Delivery O2 Flow Rate FiO2 06/25/16 16:00 99.0 92 25 93/53 92 06/25/16 12:00 99.2 96 28 104/46 96 06/25/16 08:35 94 T-piece 40 06/25/16 08:00 99.2 88 34 107/68 93 06/25/16 07:00 93 T-Piece 06/25/16 06:00 91 06/25/16 04:00 90 06/25/16 04:00 99.5 90 24 93/66 90 06/25/16 02:00 91 06/25/16 00:00 94 06/25/16 00:00 99.1 94 24 91/66 96 06/24/16 22:00 91 06/24/16 21:49 100 T-piece 6.00 35 06/24/16 20:00 99.1 86 24 85/51 97 06/24/16 20:00 88 06/24/16 19:00 93 T-Piece 4.00 35 I/O 06/24/16 06/24/16 06/24/16 06/25/16 06/25/16 06/25/16 07:00 15:00 23:00 07:00 15:00 23:00 Intake Total 630 ml 460 ml 725 ml 1085 ml 940 ml Output Total 1000 ml 1000 ml 1000 ml 1800 ml 625 ml Balance -370 ml -540 ml -275 ml -715 ml 315 ml Intake Oral 480 ml 360 ml 720 ml 960 ml 620 ml IV Total 150 ml 100 ml 5 ml 125 ml 320 ml Output Urine Total 1000 ml 1000 ml 1000 ml 1800 ml 625 ml # Bowel Movements 0 1 0 0 0 Result Diagram: 06/25/1632906/25/16329 Objective Remarks GENERAL: SKIN: Warm and dry.on vent support HEAD: Atraumatic. Normocephalic. EYES: Pupils equal and round. No scleral icterus. No injection or drainage. ENT: No nasal bleeding or discharge. Mucous membranes pink and moist. NECK: Trachea midline. No JVD. CARDIOVASCULAR: Regular rate and rhythm. RESPIRATORY: No accessory muscle use. Clear to auscultation. Breath sounds equal bilaterally. GASTROINTESTINAL: Abdomen soft, non-tender, nondistended. Hepatic and splenic margins not palpable. MUSCULOSKELETAL: Extremities without clubbing, cyanosis, or edema. No obvious deformities. NEUROLOGICAL: Awake and alert. No obvious cranial nerve deficits. Motor grossly within normal limits. Five out of 5 muscle strength in the arms and legs. Normal speech. PSYCHIATRIC: Appropriate mood and affect; insight and judgment normal. Assessment and Plan Assessment and Plan respiratory failure morbid obesity plan O2 NEEDED pulm toilet prognosis guarded Orlando Perry MD Jun 25, 2016 17:36
[2016-06-25] MEDS: INSULIN DETEMIR 100 UNITS/ML VIAL SQ SCH (20:53)
[2016-06-26] VITALS (10 sets, daily range): BP systolic 98–118; BP diastolic 53–67; PULSE 81–94; RESP 22–36; TEMP 98.3–99.3; O2SAT 91–94
[2016-06-26] MEDS: CEFEPIME INJ 2,000 MG in SODIUM CHLORIDE 0.9% INJ 100 ML IV SCH ×2
[2016-06-26] MEDS: ARTIFICIAL TEARS OPTH SOLN 15 ML BTL EACH EYE SCH ×6 (02:00→21:05)
[2016-06-26 04:13] LABS: HEMATOCRIT 30.3 % (39.0-51.0); MEAN CELL VOLUME 83.4 FL (80.0-100.0); MEAN CORPUSCULAR HEMOGLOBIN 27.7 PG (27.0-34.0); MEAN CORPUSCULAR HGB CONC 33.2 % (32.0-36.0); PLATELET COUNT 539 TH/MM3 (150-450); RED BLOOD COUNT 3.63 MIL/MM3 (4.50-5.90); RED CELL DISTRIBUTION WIDTH 17.6 % (11.6-17.2); REVIEW FLAG FINAL
[2016-06-26 04:43] LABS: BICARBONATE 29.8 MEQ/L (21.0-32.0); POTASSIUM 4.1 MEQ/L (3.5-5.1)
[2016-06-26] MEDS: ENOXAPARIN SODIUM 40 MG/0.4 ML SYRINGE SQ SCH ×2 (07:45→17:50)
[2016-06-26] MEDS: CHLORHEXIDINE 0.12% (ORAL KIT) 15 ML CUP MT SCH ×2 (08:00→20:00)
[2016-06-26] MEDS: BENEPROTEIN POWDER 1 PACK G-TUBE SCH ×3 (09:00→17:51)
[2016-06-26] MEDS: NYSTATIN 100,000 U/GM PWD 15 GM BTL TOPICAL SCH ×2 (09:00→21:00)
[2016-06-26] MEDS: SODIUM CHLORIDE 0.9% FLUSH 5 ML FLUSH IVF SCH (09:00)
[2016-06-26] MEDS: SILVER SULFADIAZINE 1% CR 400 GM JAR TOPICAL SCH (09:00)
[2016-06-26] MEDS: BETAMETHASONE/CLOTRIMAZOLE CREAM 15 GM TOPICAL SCH ×2 (09:00→21:00)
[2016-06-26] MEDS: DOCUSATE SODIUM 100 MG/10 ML UDC PO SCH ×3 (09:07→21:00)
[2016-06-26] MEDS: PANTOPRAZOLE SOD 40 MG DELAYED RELEASE TAB PO SCH (09:07)
[2016-06-26] MEDS: SENNOSIDES SYRUP 8.8 MG/5 ML CUP PO/TUBE SCH ×3 (09:07→21:00)
[2016-06-26] MEDS: POTASSIUM CHLORIDE 10 MEQ CONTROLLED RELEASE TAB PO SCH (09:07)
[2016-06-26] MEDS: LACTOBACILLUS ACIDOPHILUS TAB PO SCH ×3 (09:07→17:50)
[2016-06-26] MEDS: POLYETHYLENE GLYCOL 17 GM PKG PO SCH ×3 (09:07→21:00)
[2016-06-26] MEDS: PREGABALIN 75 MG CAP PO SCH ×2 (09:07→20:10)
[2016-06-26] MEDS: BACLOFEN 10 MG TAB PO SCH (09:09)
--- NOTE | 2016-06-26 10:30 | HHI.PR ---
Subjective Remarks patient looks and feels great, trach in place at 40% very interactive minimal to no secretions moves all extremities- states he sat on the stretcher chair for 5 hours yesterday Objective Vitals Vital Signs Date Time Temp Pulse Resp B/P Pulse Ox O2 Delivery O2 Flow Rate FiO2 06/26/16 08:00 99.3 88 36 98/63 94 06/26/16 07:00 T-Piece 6.00 35 06/26/16 04:00 99.0 92 22 115/58 93 06/26/16 00:00 98.6 84 22 107/61 91 06/25/16 20:35 93 6.00 40 06/25/16 20:00 98.8 90 25 103/58 95 06/25/16 19:00 95 T-Piece 35 06/25/16 16:00 99.0 92 25 93/53 92 06/25/16 12:00 99.2 96 28 104/46 96 I/O 06/25/16 06/25/16 06/25/16 06/26/16 06/26/16 06/26/16 07:00 15:00 23:00 07:00 15:00 23:00 Intake Total 1085 ml 940 ml 250 ml 500 ml Output Total 1800 ml 625 ml 950 ml 1550 ml Balance -715 ml 315 ml -700 ml -1050 ml Intake Oral 960 ml 620 ml 240 ml 400 ml IV Total 125 ml 320 ml 10 ml 100 ml Output Urine Total 1800 ml 625 ml 950 ml 1550 ml # Bowel Movements 0 0 1 Result Diagram: 06/26/16 0344 06/26/16 0323 Imaging Last Impressions Chest X-Ray 06/25/16 0600 Signed Impressions: Service Date/Time: Saturday, June 25, 2016 03:27 - CONCLUSION: No significant interval change. Rodrigo Martinez MD Abdomen X-Ray 06/19/16 0000 Signed Impressions: Service Date/Time: Sunday, June 19, 2016 10:43 - CONCLUSION: Gastric tube tip does not cross the diaphragm and the side port is approximately 8 cm above the diaphragm. Chano Goodwin MD Lower Extremity Ultrasound 06/04/16 0000 Signed Impressions: Service Date/Time: Saturday, June 04, 2016 14:54 - CONCLUSION: 1. No DVT identified. Dc Barton MD Liver Ultrasound 05/09/16 0000 Signed Impressions: Service Date/Time: Monday, May 09, 2016 22:28 - CONCLUSION: 1. Enlarged, fatty liver. 2. Small stones or tumefactive sludge adherent to one of the gallbladder arcos. 3. Splenomegaly. 4. Pancreas is obscured by overlying bowel gas and patient's body habitus. Arthur Kennedy MD Chest CT 03/28/16 0836 Signed Impressions: Service Date/Time: Monday, March 28, 2016 09:57 - CONCLUSION: Development areas of air bronchograms and consolidation more prominent in the right and left posterior basilar segments of the lower lobes. ET tube above the chanelle. Bernard Hartman MD CT Angiography 03/24/16 1121 Signed Impressions: Service Date/Time: Thursday, March 24, 2016 12:47 - CONCLUSION: 1. There is respiratory motion artifact but no PE is identified through most of the segmental level pulmonary arteries. 2. Mildly enlarged main pulmonary artery may indicate pulmonary arterial hypertension. 3. 11 mm left lower lobe noncalcified pulmonary nodule. Suggest correlation with any prior imaging studies that could confirm longer-term stability. If none are available consider short-term followup noncontrast chest CT in approximately 3 months. Ubaldo Rodas MD Objective Remarks awake and alert,ff all commands, interactive anicteric, tracheostomy in place lungs decreased breath sounds, no rales or rhonchi regular rhythm abdomen- globularly soft, nontender, PEG scar- well healed batista in place LE- no edema, moves all extremities spontaneously, no calf tenderness Procedures 04/30/16 - tracheostomy by Dr. Reyes 05/03/16 - EGD with PEG placement by Dr. Faith 06/09/16 - PEG removal 06/21/16- repeat tracheostomy by Dr. Cuellar Urinary Catheter: Yes Batista insert reason: Prolonged Immobilization Date of Removal: Jun 26, 2016 A/P Problem List: (1) Acute hypercapnic respiratory failure ICD Code: J96.02 Status: Acute (2) Staphylococcus aureus pneumonia ICD Code: J15.211 Status: Acute (3) Encephalopathy ICD Code: G93.40 Status: Acute (4) JACOB (obstructive sleep apnea) ICD Code: G47.33 Status: Acute (5) Diabetes mellitus type 2 in obese ICD Code: E11.9 Status: Acute (6) Morbid obesity with BMI of 50.0-59.9, adult ICD Code: E66.01 Status: Acute (7) Obesity hypoventilation syndrome ICD Code: E66.2 Status: Acute Assessment and Plan Transaminitis. LFT improving. Abd pain, improved Follow trend of LFT. Liver US shows fatty liver. Small stones or tumefactive sludge adherent to one of the gallbladder arcos. 3. Splenomegaly. Avoid liver toxicity drugs. Hep panel negative Diabetes mellitus SSI for glycemic control (high scale) 30 units sliding scale insulin scale insulin in the past 24 hours, cont Levemir insulin 35 U Q12 (was decreased) continue to adjust decrease sliding scale to q 12 Diabetic Neuropathy: patient c/o left leg tingling/pins and needle on the left leg and seem. On lyrica to 50 mg po daily, improving. - No complains on Baclofen- improved PT ff Acute hypoxemic respiratory failure on T piece tolerates well JACOB [facility] History of staph aureus pneumonia/HCAP ARDS Dr. Perry ff- on tracheostomy- 40% Trach collar with oxygen support to keep sat >92%. 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 Optifoam in place. Apply bacitracin. Wound cultures with normal sherine. Consult wound care, discussed with Nica from wound care, appreciate recommendations. Cleanse wound with NS and apply nonadhesive foam ag dressing over wound and change every other day and PRN for saturation or dislodgement. Add silvadene cream daily Mild MR/TR. Monitor HR and BP keep MAP>65mmHg 2-D echo 03/26 EF 60%. No regional wall motion abnormality. Mild MR/TR. Hypokalemia Hypernatremia-resolved Hypophosphatemia Monitor renal function, I/O's, electrolytes replacement per protocol. Urine output 625cc/per 12 hours Bumex 0.5mg/day- PEG route Constipation-resolved Moderate protein calorie malnutrition Nausea and vomiting- resolved Flatulence: Give simethicone On Glucerna 1.5@45ml/hr with 1 scoop whey protein 3 times a day, no residual Protonix 40mg daily On Reglan 10mg Q8, Senna and Colace twice a day.Discontinue MiraLAX twice a day and lactulose 4 times a day. PEG tube placement- 05/03- tolerating TF Zofran 4 mg every 6 hours when necessary Likely SERENITY Toxic metabolic encephalopathy-resolved Off Precedex infusion (05/04) Continue [place] 5/325mg every 6hrs scheduled, fentanyl patch 25mcgs, and Shauna 5mg PRN, fentanyl patch 25 mcgs q 3 days-will begin to wean narcotics Seroquel 25mg BID initiated 05/04 Acetaminophen for fever Staph aureus pneumonia- PSAE,MSSA Possible staph bacteremia Pertinent culture 04/27 - pansensitive staph aureus 04/27 blood cultures 2 negative 04/25 - urine -no growth 04/19 - blood cultures 2 out of 4 - staph aureus 04/19 - sputum - staph aureus 04/08 - sputum - staph aureus 04/03 - sputum - staph aureus 03/30 - sputum- -staph aureus 03/27 - sputum - staph aureus 03/26 - blood - staph hominis S/P On vancomycin 2 g IV every 12 are since 04/19 - 04/29 Azactam 04/27 through Finished clindamycin ID specialist consulted, Dr. Painter, appreciate recommendations. Finished course of abx- with Cefepime 06/25 ID specialist signed off. Leukocytosis Monitor CBC/coags Monitor WBC 11.7 trended down- afebrile Morbid obesity BMI of 51.8 Weight loss encouraged. DVT, GI prophylaxis -Bilateral lower extremity SCDs. PEG Protonix 40 mg daily. REglan 10 mg /PEG q 8 Lovenox 40 mg sq BID LINES: -Left upper extremity PICC line placed 04/15-05/04. Peripheral IVs x 2 Discharge plan: Case management has been consulted for discharge plan. The patient T piece trials successful for 48 hours plans for LTAC transfer. Discussed with the case management, very difficult discharge, no LTAC facility will take patient, currently is looking for SNF. Ana Dent MD Jun 26, 2016 10:30
--- NOTE | 2016-06-26 12:55 | HHI.IDPN ---
Subjective Subjective Remarks Notes reviewed Temps ok He is on T-piece, doing well CXR clear Last sputum with rare GNR WBC slightly better BC negative UA ok Patient is a 50-year-old male admitted to the hospital for shortness of breath. There is a history of possible sleep apnea, and he has morbid obesity as well as diabetes. Patient . remained on the vent and he underwent tracheostomy May 01, 2016. He was treated several times for MSSA pneumonia. He was being followed from the ID standpoint, and we signed off the case on May 08. At that time he had completed a course of antibiotics for his pneumonia. He was also doing well and tolerating T piece, and has been off the respirator. Antibiotics Cefepime - finished 06/25 Past Medical History Reviewed Allergies: Coded Allergies: Penicillin (Verified Allergy, Severe, Swelling, 03/24/16) Tetanus Toxoid (Verified Allergy, Unknown, Swelling, 03/24/16) Objective . Vital Signs Date Time Temp Pulse Resp B/P Pulse Ox O2 Delivery O2 Flow Rate FiO2 06/26/16 08:00 99.3 88 36 98/63 94 06/26/16 07:00 T-Piece 6.00 35 06/26/16 04:00 99.0 92 22 115/58 93 06/26/16 00:00 98.6 84 22 107/61 91 06/25/16 20:35 93 6.00 40 06/25/16 20:00 98.8 90 25 103/58 95 06/25/16 19:00 95 T-Piece 35 06/25/16 16:00 99.0 92 25 93/53 92 06/25/16 06/25/16 06/26/16 15:00 23:00 07:00 Intake Total 940 ml 250 ml 500 ml Output Total 625 ml 950 ml 1550 ml Balance 315 ml -700 ml -1050 ml Intake Oral 620 ml 240 ml 400 ml IV Total 320 ml 10 ml 100 ml Output Urine Total 625 ml 950 ml 1550 ml # Bowel Movements 0 1 . Laboratory Tests Test 06/25/16 06/26/16 03:30 03:44 White Blood Count 17.2 TH/MM3 15.0 TH/MM3 Red Blood Count 3.66 MIL/MM3 3.63 MIL/MM3 Hemoglobin 10.0 GM/DL 10.1 GM/DL Hematocrit 31.2 % 30.3 % Mean Corpuscular Volume 85.2 FL 83.4 FL Mean Corpuscular Hemoglobin 27.2 PG 27.7 PG Mean Corpuscular Hemoglobin 31.9 % 33.2 % Concent Red Cell Distribution Width 17.6 % 17.6 % Platelet Count 501 TH/MM3 539 TH/MM3 Mean Platelet Volume 8.0 FL 7.9 FL Laboratory Tests Test 06/25/16 06/26/16 03:30 03:23 Sodium Level 139 MEQ/L 139 MEQ/L Potassium Level 3.9 MEQ/L 4.1 MEQ/L Chloride Level 102 MEQ/L 103 MEQ/L Carbon Dioxide Level 31.3 MEQ/L 29.8 MEQ/L Anion Gap 6 MEQ/L 6 MEQ/L Blood Urea Nitrogen 4 MG/DL 4 MG/DL Creatinine 0.35 MG/DL 0.38 MG/DL Estimat Glomerular Filtration 266 ML/MIN 242 ML/MIN Rate Random Glucose 105 MG/DL 105 MG/DL Calcium Level 9.3 MG/DL 9.3 MG/DL Microbiology Date/Time Procedure Status Source Growth 06/24/16 11:40 Aerobic Blood Culture - Preliminary Resulted Blood Peripheral NO GROWTH IN 2 DAYS 06/24/16 11:40 Anaerobic Blood Culture - Preliminary Resulted Blood Peripheral NO GROWTH IN 2 DAYS 06/24/16 11:55 Aerobic Blood Culture - Preliminary Resulted Blood Peripheral NO GROWTH IN 2 DAYS 06/24/16 11:55 Anaerobic Blood Culture - Preliminary Resulted Blood Peripheral NO GROWTH IN 2 DAYS 06/24/16 15:20 Gram Stain - Final Resulted Sputum Endotracheal 06/24/16 15:20 Sputum Culture - Preliminary Resulted Gram Negative [facility] Abdomen X-Ray 06/19/16 0000 Signed Impressions: Service Date/Time: Sunday, June 19, 2016 10:43 - CONCLUSION: Gastric tube tip does not cross the diaphragm and the side port is approximately 8 cm above the diaphragm. Chano Goodwin MD Chest X-Ray 06/14/16 0400 Signed Impressions: Service Date/Time: June 03:48 - CONCLUSION: Significant improvement of the lungs with minimal residual disease the right lower lobe. Wale Dalal MD Abdomen X-Ray 06/12/16 0000 Signed Impressions: Service Date/Time: Sunday, June 12, 2016 17:57 - CONCLUSION: 1. Nasogastric tube in place with the tip projected over the distal stomach. 2. Unremarkable bowel gas pattern. Genaro Garcia MD Lower Extremity Ultrasound 06/04/16 0000 Signed Impressions: Service Date/Time: Saturday, June 04, 2016 14:54 - CONCLUSION: 1. No DVT identified. Dc Barton MD Liver Ultrasound 05/09/16 0000 Signed Impressions: Service Date/Time: Monday, May 09, 2016 22:28 - CONCLUSION: 1. Enlarged, fatty liver. 2. Small stones or tumefactive sludge adherent to one of the gallbladder arcos. 3. Splenomegaly. 4. Pancreas is obscured by overlying bowel gas and patient's body habitus. Arthur Kennedy MD Chest CT 03/28/16 0836 Signed Impressions: Service Date/Time: Monday, March 28, 2016 09:57 - CONCLUSION: Development areas of air bronchograms and consolidation more prominent in the right and left posterior basilar segments of the lower lobes. ET tube above the chanelle. Bernard Hartman MD CT Angiography 03/24/16 1121 Signed Impressions: Service Date/Time: Thursday, March 24, 2016 12:47 - CONCLUSION: 1. There is respiratory motion artifact but no PE is identified through most of the segmental level pulmonary arteries. 2. Mildly enlarged main pulmonary artery may indicate pulmonary arterial hypertension. 3. 11 mm left lower lobe noncalcified pulmonary nodule. Suggest correlation with any prior imaging studies that could confirm longer-term stability. If none are available consider short-term followup noncontrast chest CT in approximately 3 months. Ubaldo Rodas MD Chest X-Ray 05/03/16 0600 Signed Impressions: Service Date/Time: May 04:08 - CONCLUSION: 1. Subsegmental airspace disease in the lungs. Cardiomegaly. Kyle Lorenzo MD Abdomen X-Ray 05/01/16 0000 Signed Impressions: Service Date/Time: Sunday, May 01, 2016 17:28 - CONCLUSION: No evidence of obstruction. Feeding tube overlies the distal stomach, May have to be advanced slightly to reach the duodenum. Nick Jon MD Chest CT 03/28/16 0836 Signed Impressions: Service Date/Time: Monday, March 28, 2016 09:57 - CONCLUSION: Development areas of air bronchograms and consolidation more prominent in the right and left posterior basilar segments of the lower lobes. ET tube above the chanelle. Bernard Hartman MD CT Angiography 03/24/16 1121 Signed Impressions: Service Date/Time: Thursday, March 24, 2016 12:47 - CONCLUSION: 1. There is respiratory motion artifact but no PE is identified through most of the segmental level pulmonary arteries. 2. Mildly enlarged main pulmonary artery may indicate pulmonary arterial hypertension. 3. 11 mm left lower lobe noncalcified pulmonary nodule. Suggest correlation with any prior imaging studies that could confirm longer-term stability. If none are available consider short-term followup noncontrast chest CT in approximately 3 months. Ubaldo Rodas MD Physical Exam GENERAL: Awake and alert, obese, on T-piece, NAD SKIN: Warm and moist. No generalized rash HEENT: Moyers conjunctivae, no petechia or hemorrhage. No scleral icterus. NECK: Large and thick. S/P trach, site ok CHEST: Coarse BS eufemia, equal breath sounds CARDIAC: regular rate and rhythm, no murmur ABDOMEN: soft, obese, (+) BS and normoactive, no tenderness, no guarding or rebound. : Becker in place, urine looks clear MUSCULOSKELETAL: Extremities without clubbing, cyanosis. Mild edema NEUROLOGICAL: Awake and interacting. stable PSYCH: Awake, cooperative LINE: PIV with no evidence of infection : Becker in place, urine looks clear Assessment & Plan Remarks IMPRESSION Recurrent respiratory failure due to pulmonary edema - CXR better New PNA: PSAE and MSSA, S/P Rx - sputum with GNR, prob colonized; CXR clear Fevers, etiology? better - possible due to pulmonary, has PSAE and Staph aureus in sputum - ?atelectasis, pluggng now that he is doing Tpiece - CXR clear - ?drug Leukocytosis, decreasing Pneumonia, C/S MSSA, S/P Rx x 2 JACOB Morbid obesity Allergy to PCN, swelling RECOMMENDATION Follow CBC Monitor temps Monitor progress Monitor off Abx Elisha Painter MD Jun 26, 2016 12:55
--- NOTE | 2016-06-26 19:21 | HHI.PR ---
Subjective Remarks acute respiratory failure DOING WELL , NOW ON TTUBE tracheostomy done Objective Vital Signs Date Time Temp Pulse Resp B/P Pulse Ox O2 Delivery O2 Flow Rate FiO2 06/26/16 16:00 99.0 90 25 106/61 94 06/26/16 12:00 99.0 94 34 99/53 92 06/26/16 08:00 99.3 88 36 98/63 94 06/26/16 08:00 88 06/26/16 07:00 T-Piece 6.00 35 06/26/16 04:00 99.0 92 22 115/58 93 06/26/16 00:00 98.6 84 22 107/61 91 06/25/16 20:35 93 6.00 40 06/25/16 20:00 98.8 90 25 103/58 95 I/O 06/25/16 06/25/16 06/25/16 06/26/16 06/26/16 06/26/16 07:00 15:00 23:00 07:00 15:00 23:00 Intake Total 1085 ml 940 ml 250 ml 500 ml 750 ml Output Total 1800 ml 625 ml 950 ml 1550 ml 950 ml Balance -715 ml 315 ml -700 ml -1050 ml -200 ml Intake Oral 960 ml 620 ml 240 ml 400 ml 750 ml IV Total 125 ml 320 ml 10 ml 100 ml 0 ml Output Urine Total 1800 ml 625 ml 950 ml 1550 ml 950 ml # Bowel Movements 0 0 1 0 Result Diagram: 06/26/16 0344 06/26/16 0323 Objective Remarks GENERAL: SKIN: Warm and dry.on vent support HEAD: Atraumatic. Normocephalic. EYES: Pupils equal and round. No scleral icterus. No injection or drainage. ENT: No nasal bleeding or discharge. Mucous membranes pink and moist. NECK: Trachea midline. No JVD. CARDIOVASCULAR: Regular rate and rhythm. RESPIRATORY: No accessory muscle use. Clear to auscultation. Breath sounds equal bilaterally. GASTROINTESTINAL: Abdomen soft, non-tender, nondistended. Hepatic and splenic margins not palpable. MUSCULOSKELETAL: Extremities without clubbing, cyanosis, or edema. No obvious deformities. NEUROLOGICAL: Awake and alert. No obvious cranial nerve deficits. Motor grossly within normal limits. Five out of 5 muscle strength in the arms and legs. Normal speech. PSYCHIATRIC: Appropriate mood and affect; insight and judgment normal. Assessment and Plan Assessment and Plan respiratory failure morbid obesity plan O2 NEEDED pulm toilet prognosis guarded Orlando Perry MD Jun 26, 2016 19:21
[2016-06-26] MEDS: INSULIN DETEMIR 100 UNITS/ML VIAL SQ SCH (20:10)
[2016-06-27] VITALS (15 sets, daily range): BP systolic 96–113; BP diastolic 52–70; PULSE 82–100; RESP 20–37; TEMP 98.3–99.7; O2SAT 93–97
[2016-06-27] MEDS: ARTIFICIAL TEARS OPTH SOLN 15 ML BTL EACH EYE SCH ×6 (02:00→22:00)
[2016-06-27 04:30] LABS: HEMATOCRIT 30.6 % (39.0-51.0); MEAN CELL VOLUME 84.1 FL (80.0-100.0); MEAN CORPUSCULAR HEMOGLOBIN 27.9 PG (27.0-34.0); MEAN CORPUSCULAR HGB CONC 33.1 % (32.0-36.0); PLATELET COUNT 558 TH/MM3 (150-450); RED BLOOD COUNT 3.64 MIL/MM3 (4.50-5.90); RED CELL DISTRIBUTION WIDTH 16.8 % (11.6-17.2); REVIEW FLAG FINAL
[2016-06-27] MEDS: ENOXAPARIN SODIUM 40 MG/0.4 ML SYRINGE SQ SCH ×2 (04:54→18:28)
[2016-06-27 05:00] LABS: BICARBONATE 32.3 MEQ/L (21.0-32.0); POTASSIUM 3.9 MEQ/L (3.5-5.1)
[2016-06-27] MEDS: CHLORHEXIDINE 0.12% (ORAL KIT) 15 ML CUP MT SCH ×2 (08:00→20:00)
[2016-06-27] MEDS: DOCUSATE SODIUM 100 MG/10 ML UDC PO SCH ×2 (09:00→20:47)
[2016-06-27] MEDS: SENNOSIDES SYRUP 8.8 MG/5 ML CUP PO/TUBE SCH ×2 (09:00→20:48)
[2016-06-27] MEDS: POLYETHYLENE GLYCOL 17 GM PKG PO SCH ×2 (09:00→20:48)
[2016-06-27] MEDS: PREGABALIN 75 MG CAP PO SCH ×2 (09:48→20:47)
[2016-06-27] MEDS: PANTOPRAZOLE SOD 40 MG DELAYED RELEASE TAB PO SCH (09:48)
[2016-06-27] MEDS: BACLOFEN 10 MG TAB PO SCH (09:49)
[2016-06-27] MEDS: POTASSIUM CHLORIDE 10 MEQ CONTROLLED RELEASE TAB PO SCH (09:49)
[2016-06-27] MEDS: SODIUM CHLORIDE 0.9% FLUSH 5 ML FLUSH IVF SCH (09:50)
[2016-06-27] MEDS: LACTOBACILLUS ACIDOPHILUS TAB PO SCH ×3 (09:50→18:28)
[2016-06-27] MEDS: BENEPROTEIN POWDER 1 PACK G-TUBE SCH ×3 (09:54→18:29)
[2016-06-27] MEDS: BETAMETHASONE/CLOTRIMAZOLE CREAM 15 GM TOPICAL SCH ×2 (09:55→20:48)
[2016-06-27] MEDS: NYSTATIN 100,000 U/GM PWD 15 GM BTL TOPICAL SCH ×2 (09:55→20:48)
[2016-06-27] MEDS: SILVER SULFADIAZINE 1% CR 400 GM JAR TOPICAL SCH (09:56)
--- NOTE | 2016-06-27 13:21 | HHI.PR ---
Subjective Remarks doing well on trach- 40% minimal secretions Objective Vitals Vital Signs Date Time Temp Pulse Resp B/P Pulse Ox O2 Delivery O2 Flow Rate FiO2 06/27/16 08:17 93 T-piece 5.00 40 06/27/16 06:00 87 06/27/16 04:00 87 06/27/16 04:00 99.1 87 37 109/69 94 06/27/16 02:00 93 06/27/16 00:00 98.3 82 20 103/63 93 06/27/16 00:00 82 06/26/16 22:00 81 06/26/16 20:00 98.3 86 29 118/67 93 06/26/16 20:00 86 06/26/16 19:51 93 T-piece 6.00 40 06/26/16 19:00 92 T-Piece 7.00 40 06/26/16 16:00 99.0 90 25 106/61 94 I/O 06/26/16 06/26/16 06/26/16 06/27/16 06/27/16 06/27/16 07:00 15:00 23:00 07:00 15:00 23:00 Intake Total 500 ml 750 ml 120 ml 400 ml Output Total 1550 ml 950 ml 575 ml 900 ml Balance -1050 ml -200 ml -455 ml -500 ml Intake Oral 400 ml 750 ml 120 ml 400 ml IV Total 100 ml 0 ml 0 ml Output Urine Total 1550 ml 950 ml 575 ml 900 ml # Bowel Movements 0 0 0 Result Diagram: 06/27/16 0406 06/27/16 0406 Imaging Last Impressions Chest X-Ray 06/25/16 0600 Signed Impressions: Service Date/Time: Saturday, June 25, 2016 03:27 - CONCLUSION: No significant interval change. Rodrigo Martinez MD Abdomen X-Ray 06/19/16 0000 Signed Impressions: Service Date/Time: Sunday, June 19, 2016 10:43 - CONCLUSION: Gastric tube tip does not cross the diaphragm and the side port is approximately 8 cm above the diaphragm. Chano Goodwin MD Lower Extremity Ultrasound 06/04/16 0000 Signed Impressions: Service Date/Time: Saturday, June 04, 2016 14:54 - CONCLUSION: 1. No DVT identified. Dc Barton MD Liver Ultrasound 05/09/16 0000 Signed Impressions: Service Date/Time: Monday, May 09, 2016 22:28 - CONCLUSION: 1. Enlarged, fatty liver. 2. Small stones or tumefactive sludge adherent to one of the gallbladder arcos. 3. Splenomegaly. 4. Pancreas is obscured by overlying bowel gas and patient's body habitus. Arthur Kennedy MD Chest CT 03/28/16 0836 Signed Impressions: Service Date/Time: Monday, March 28, 2016 09:57 - CONCLUSION: Development areas of air bronchograms and consolidation more prominent in the right and left posterior basilar segments of the lower lobes. ET tube above the chanelle. Bernard Hartman MD CT Angiography 03/24/16 1121 Signed Impressions: Service Date/Time: Thursday, March 24, 2016 12:47 - CONCLUSION: 1. There is respiratory motion artifact but no PE is identified through most of the segmental level pulmonary arteries. 2. Mildly enlarged main pulmonary artery may indicate pulmonary arterial hypertension. 3. 11 mm left lower lobe noncalcified pulmonary nodule. Suggest correlation with any prior imaging studies that could confirm longer-term stability. If none are available consider short-term followup noncontrast chest CT in approximately 3 months. Ubaldo Rodas MD Objective Remarks awake and alert,ff all commands, interactive anicteric, tracheostomy in place lungs decreased breath sounds, no rales or rhonchi regular rhythm abdomen- globularly soft, nontender, PEG scar- well healed LE- no edema, moves all extremities spontaneously, no calf tenderness Procedures 04/30/16 - tracheostomy by Dr. Reyes 05/03/16 - EGD with PEG placement by Dr. Faith 06/09/16 - PEG removal 06/21/16- repeat tracheostomy by Dr. Cuellar Date of Removal: Jun 26, 2016 A/P Problem List: (1) Acute hypercapnic respiratory failure ICD Code: J96.02 Status: Acute (2) Staphylococcus aureus pneumonia ICD Code: J15.211 Status: Acute (3) Encephalopathy ICD Code: G93.40 Status: Acute (4) JACOB (obstructive sleep apnea) ICD Code: G47.33 Status: Acute (5) Diabetes mellitus type 2 in obese ICD Code: E11.9 Status: Acute (6) Morbid obesity with BMI of 50.0-59.9, adult ICD Code: E66.01 Status: Acute (7) Obesity hypoventilation syndrome ICD Code: E66.2 Status: Acute Assessment and Plan Transaminitis. LFT improving. Abd pain, improved Follow trend of LFT. Liver US shows fatty liver. Small stones or tumefactive sludge adherent to one of the gallbladder arcos. 3. Splenomegaly. Avoid liver toxicity drugs. Hep panel negative Diabetes mellitus SSI for glycemic control (high scale) 30 units sliding scale insulin scale insulin in the past 24 hours, cont Levemir insulin 35 U Q12 (was decreased) continue to adjust decrease sliding scale to q 12 Diabetic Neuropathy: patient c/o left leg tingling/pins and needle on the left leg and seem. On lyrica to 50 mg po daily, improving. - No complains on Baclofen- improved PT ff Acute hypoxemic respiratory failure on T piece tolerates well JACOB [facility] History of staph aureus pneumonia/HCAP ARDS Dr. Perry ff- on tracheostomy- 40%- d/w RT- decrease fi02 if about 28% will try trach capping Trach collar with oxygen support to keep sat >92%. 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 Optifoam in place. Apply bacitracin. Wound cultures with normal sherine. Consult wound care, discussed with Nica from wound care, appreciate recommendations. Cleanse wound with NS and apply nonadhesive foam ag dressing over wound and change every other day and PRN for saturation or dislodgement. Add silvadene cream daily Mild MR/TR. Monitor HR and BP keep MAP>65mmHg 2-D echo 03/26 EF 60%. No regional wall motion abnormality. Mild MR/TR. Hypokalemia Hypernatremia-resolved Hypophosphatemia Monitor renal function, I/O's, electrolytes replacement per protocol. Urine output 625cc/per 12 hours Bumex 0.5mg/day- PEG route Constipation-resolved Moderate protein calorie malnutrition Nausea and vomiting- resolved Flatulence: Give simethicone On Glucerna 1.5@45ml/hr with 1 scoop whey protein 3 times a day, no residual Protonix 40mg daily On Reglan 10mg Q8, Senna and Colace twice a day.Discontinue MiraLAX twice a day and lactulose 4 times a day. PEG tube placement- 05/03- tolerating TF Zofran 4 mg every 6 hours when necessary Likely SERENITY Toxic metabolic encephalopathy-resolved Off Precedex infusion (05/04) Continue Jasper 5/325mg every 6hrs scheduled, fentanyl patch 25mcgs, and Shauna 5mg PRN, fentanyl patch 25 mcgs q 3 days-will begin to wean narcotics Seroquel 25mg BID initiated 05/04 Acetaminophen for fever Staph aureus pneumonia- PSAE,MSSA Possible staph bacteremia Pertinent culture 04/27 - pansensitive staph aureus 04/27 blood cultures 2 negative 04/25 - urine -no growth 04/19 - blood cultures 2 out of 4 - staph aureus 04/19 - sputum - staph aureus 04/08 - sputum - staph aureus 04/03 - sputum - staph aureus 03/30 - sputum- -staph aureus 03/27 - sputum - staph aureus 03/26 - blood - staph hominis S/P On vancomycin 2 g IV every 12 are since 04/19 - 04/29 Azactam 04/27 through Finished clindamycin ID specialist consulted, Dr. Painter, appreciate recommendations. Finished course of abx- with Cefepime 06/25 ID specialist signed off. Leukocytosis Monitor CBC/coags Monitor WBC 11.7 trended down- afebrile Morbid obesity BMI of 51.8 Weight loss encouraged. DVT, GI prophylaxis -Bilateral lower extremity SCDs. PEG Protonix 40 mg daily. REglan 10 mg /PEG q 8 Lovenox 40 mg sq BID LINES: -Left upper extremity PICC line placed 04/15-05/04. Peripheral IVs x 2 Discharge plan: Case management has been consulted for discharge plan. The patient T piece trials successful for 48 hours plans for LTAC transfer. Discussed with the case management, very difficult discharge, no LTAC facility will take patient, currently is looking for SNF. Ana Dent MD Jun 27, 2016 13:21
--- NOTE | 2016-06-27 16:11 | HHI.PR ---
Subjective Remarks acute respiratory failure DOING WELL , NOW ON TTUBE tracheostomy done Objective Vital Signs Date Time Temp Pulse Resp B/P Pulse Ox O2 Delivery O2 Flow Rate FiO2 06/27/16 14:44 94 T-piece 6.00 35 06/27/16 10:48 30 06/27/16 08:17 93 T-piece 5.00 40 06/27/16 08:00 99.0 86 34 109/52 97 06/27/16 08:00 86 06/27/16 07:00 95 T-Piece 7.00 40 06/27/16 06:00 87 06/27/16 04:00 87 06/27/16 04:00 99.1 87 37 109/69 94 06/27/16 02:00 93 06/27/16 00:00 98.3 82 20 103/63 93 06/27/16 00:00 82 06/26/16 22:00 81 06/26/16 20:00 98.3 86 29 118/67 93 06/26/16 20:00 86 06/26/16 19:51 93 T-piece 6.00 40 06/26/16 19:00 92 T-Piece 7.00 40 I/O 06/26/16 06/26/16 06/26/16 06/27/16 06/27/16 06/27/16 07:00 15:00 23:00 07:00 15:00 23:00 Intake Total 500 ml 750 ml 120 ml 400 ml Output Total 1550 ml 950 ml 575 ml 900 ml Balance -1050 ml -200 ml -455 ml -500 ml Intake Oral 400 ml 750 ml 120 ml 400 ml IV Total 100 ml 0 ml 0 ml Output Urine Total 1550 ml 950 ml 575 ml 900 ml # Bowel Movements 0 0 0 Result Diagram: 06/27/16 0406 06/27/16 0406 Objective Remarks GENERAL: SKIN: Warm and dry.on vent support HEAD: Atraumatic. Normocephalic. EYES: Pupils equal and round. No scleral icterus. No injection or drainage. ENT: No nasal bleeding or discharge. Mucous membranes pink and moist. NECK: Trachea midline. No JVD. CARDIOVASCULAR: Regular rate and rhythm. RESPIRATORY: No accessory muscle use. Clear to auscultation. Breath sounds equal bilaterally. GASTROINTESTINAL: Abdomen soft, non-tender, nondistended. Hepatic and splenic margins not palpable. MUSCULOSKELETAL: Extremities without clubbing, cyanosis, or edema. No obvious deformities. NEUROLOGICAL: Awake and alert. No obvious cranial nerve deficits. Motor grossly within normal limits. Five out of 5 muscle strength in the arms and legs. Normal speech. PSYCHIATRIC: Appropriate mood and affect; insight and judgment normal. Assessment and Plan Assessment and Plan respiratory failure morbid obesity plan O2 NEEDED pulm toilet prognosis guarded Orlando Perry MD Jun 27, 2016 16:11
[2016-06-27] MEDS: INSULIN DETEMIR 100 UNITS/ML VIAL SQ SCH (20:47)
[2016-06-28] VITALS (15 sets, daily range): BP systolic 98–122; BP diastolic 55–74; PULSE 83–98; RESP 15–36; TEMP 98.6–99.3; O2SAT 90–98
[2016-06-28] MEDS: ARTIFICIAL TEARS OPTH SOLN 15 ML BTL EACH EYE SCH ×6 (02:00→22:00)
[2016-06-28] MEDS: ENOXAPARIN SODIUM 40 MG/0.4 ML SYRINGE SQ SCH ×2 (05:59→17:57)
[2016-06-28] MEDS: BENEPROTEIN POWDER 1 PACK G-TUBE SCH ×3 (08:21→17:57)
[2016-06-28] MEDS: CHLORHEXIDINE 0.12% (ORAL KIT) 15 ML CUP MT SCH ×2 (08:21→20:00)
[2016-06-28] MEDS: PANTOPRAZOLE SOD 40 MG DELAYED RELEASE TAB PO SCH (08:22)
[2016-06-28] MEDS: LACTOBACILLUS ACIDOPHILUS TAB PO SCH ×3 (08:22→17:57)
[2016-06-28] MEDS: DOCUSATE SODIUM 100 MG/10 ML UDC PO SCH ×2 (08:22→20:10)
[2016-06-28] MEDS: PREGABALIN 75 MG CAP PO SCH ×2 (08:22→20:09)
[2016-06-28] MEDS: SODIUM CHLORIDE 0.9% FLUSH 5 ML FLUSH IVF SCH (08:22)
[2016-06-28] MEDS: POTASSIUM CHLORIDE 10 MEQ CONTROLLED RELEASE TAB PO SCH (08:22)
[2016-06-28] MEDS: SENNOSIDES SYRUP 8.8 MG/5 ML CUP PO/TUBE SCH ×2 (08:23→20:11)
[2016-06-28] MEDS: POLYETHYLENE GLYCOL 17 GM PKG PO SCH ×2 (08:23→20:11)
[2016-06-28] MEDS: BACLOFEN 10 MG TAB PO SCH (08:23)
[2016-06-28] MEDS: BETAMETHASONE/CLOTRIMAZOLE CREAM 15 GM TOPICAL SCH ×2 (08:23→20:11)
[2016-06-28] MEDS: NYSTATIN 100,000 U/GM PWD 15 GM BTL TOPICAL SCH ×2 (08:24→20:11)
[2016-06-28] MEDS: SILVER SULFADIAZINE 1% CR 400 GM JAR TOPICAL SCH (08:24)
--- NOTE | 2016-06-28 13:52 | HHI.IDPN ---
Subjective Subjective Remarks Notes reviewed Temps ok He is on T-piece, doing well CXR clear He is off Abx Patient is a 50-year-old male admitted to the hospital for shortness of breath. There is a history of possible sleep apnea, and he has morbid obesity as well as diabetes. Patient . remained on the vent and he underwent tracheostomy May 01, 2016. He was treated several times for MSSA pneumonia. He was being followed from the ID standpoint, and we signed off the case on May 08. At that time he had completed a course of antibiotics for his pneumonia. He was also doing well and tolerating T piece, and has been off the respirator. Antibiotics None Past Medical History Reviewed Allergies: Coded Allergies: Penicillin (Verified Allergy, Severe, Swelling, 06/26/16) has tolerated cephalosporins Tetanus Toxoid (Verified Allergy, Unknown, Swelling, 03/24/16) Objective . Vital Signs Date Time Temp Pulse Resp B/P Pulse Ox O2 Delivery O2 Flow Rate FiO2 06/28/16 12:00 94 06/28/16 10:00 92 06/28/16 08:34 92 T-piece 6.00 35 06/28/16 08:00 99.0 98 27 98/64 98 06/28/16 08:00 90 06/28/16 07:00 93 T-Piece 7.00 40 06/28/16 06:00 95 06/28/16 04:00 99.0 90 24 104/64 90 06/28/16 04:00 90 06/28/16 02:00 86 06/28/16 00:00 83 06/28/16 00:00 98.6 83 19 100/64 93 06/27/16 22:31 93 T-piece 6.00 35 06/27/16 22:00 87 06/27/16 20:00 100 06/27/16 20:00 98.6 100 24 96/53 94 06/27/16 19:00 94 T-Piece 7.00 40 06/27/16 18:00 86 06/27/16 16:00 92 06/27/16 16:00 98.6 92 24 105/58 94 06/27/16 14:44 94 T-piece 6.00 35 06/27/16 14:00 92 06/27/16 06/27/16 06/28/16 15:00 23:00 07:00 Intake Total 720 ml 350 ml 240 ml Output Total 300 ml 625 ml 600 ml Balance 420 ml -275 ml -360 ml Intake Oral 720 ml 350 ml 240 ml IV Total 0 ml 0 ml 0 ml Output Urine Total 300 ml 625 ml 600 ml # Bowel Movements 0 1 0 . Laboratory Tests Test 06/27/16 04:06 White Blood Count 14.0 TH/MM3 Red Blood Count 3.64 MIL/MM3 Hemoglobin 10.1 GM/DL Hematocrit 30.6 % Mean Corpuscular Volume 84.1 FL Mean Corpuscular Hemoglobin 27.9 PG Mean Corpuscular Hemoglobin 33.1 % Concent Red Cell Distribution Width 16.8 % Platelet Count 558 TH/MM3 Mean Platelet Volume 7.5 FL Laboratory Tests Test 06/27/16 04:06 Sodium Level 138 MEQ/L Potassium Level 3.9 MEQ/L Chloride Level 99 MEQ/L Carbon Dioxide Level 32.3 MEQ/L Anion Gap 7 MEQ/L Blood Urea Nitrogen 6 MG/DL Creatinine 0.50 MG/DL Estimat Glomerular Filtration 176 ML/MIN Rate Random Glucose 107 MG/DL Calcium Level 9.3 MG/DL Imaging Abdomen X-Ray 06/19/16 0000 Signed Impressions: Service Date/Time: Sunday, June 19, 2016 10:43 - CONCLUSION: Gastric tube tip does not cross the diaphragm and the side port is approximately 8 cm above the diaphragm. Chano Goodwin MD Chest X-Ray 06/14/16 0400 Signed Impressions: Service Date/Time: June 03:48 - CONCLUSION: Significant improvement of the lungs with minimal residual disease the right lower lobe. Wale Dalal MD Abdomen X-Ray 06/12/16 0000 Signed Impressions: Service Date/Time: Sunday, June 12, 2016 17:57 - CONCLUSION: 1. Nasogastric tube in place with the tip projected over the distal stomach. 2. Unremarkable bowel gas pattern. Genaro Garcia MD Lower Extremity Ultrasound 06/04/16 0000 Signed Impressions: Service Date/Time: Saturday, June 04, 2016 14:54 - CONCLUSION: 1. No DVT identified. Dc Barton MD Liver Ultrasound 05/09/16 0000 Signed Impressions: Service Date/Time: Monday, May 09, 2016 22:28 - CONCLUSION: 1. Enlarged, fatty liver. 2. Small stones or tumefactive sludge adherent to one of the gallbladder arcos. 3. Splenomegaly. 4. Pancreas is obscured by overlying bowel gas and patient's body habitus. Arthur Kennedy MD Chest CT 03/28/16 0836 Signed Impressions: Service Date/Time: Monday, March 28, 2016 09:57 - CONCLUSION: Development areas of air bronchograms and consolidation more prominent in the right and left posterior basilar segments of the lower lobes. ET tube above the chanelle. Bernard Hartman MD CT Angiography 03/24/16 1121 Signed Impressions: Service Date/Time: Thursday, March 24, 2016 12:47 - CONCLUSION: 1. There is respiratory motion artifact but no PE is identified through most of the segmental level pulmonary arteries. 2. Mildly enlarged main pulmonary artery may indicate pulmonary arterial hypertension. 3. 11 mm left lower lobe noncalcified pulmonary nodule. Suggest correlation with any prior imaging studies that could confirm longer-term stability. If none are available consider short-term followup noncontrast chest CT in approximately 3 months. Ubaldo Rodas MD Chest X-Ray 05/03/16 0600 Signed Impressions: Service Date/Time: May 04:08 - CONCLUSION: 1. Subsegmental airspace disease in the lungs. Cardiomegaly. Kyle Lorenzo MD Abdomen X-Ray 05/01/16 0000 Signed Impressions: Service Date/Time: Sunday, May 01, 2016 17:28 - CONCLUSION: No evidence of obstruction. Feeding tube overlies the distal stomach, May have to be advanced slightly to reach the duodenum. Nick Jon MD Chest CT 03/28/16 0836 Signed Impressions: Service Date/Time: Monday, March 28, 2016 09:57 - CONCLUSION: Development areas of air bronchograms and consolidation more prominent in the right and left posterior basilar segments of the lower lobes. ET tube above the chanelle. Bernard Hartman MD CT Angiography 03/24/16 1121 Signed Impressions: Service Date/Time: Thursday, March 24, 2016 12:47 - CONCLUSION: 1. There is respiratory motion artifact but no PE is identified through most of the segmental level pulmonary arteries. 2. Mildly enlarged main pulmonary artery may indicate pulmonary arterial hypertension. 3. 11 mm left lower lobe noncalcified pulmonary nodule. Suggest correlation with any prior imaging studies that could confirm longer-term stability. If none are available consider short-term followup noncontrast chest CT in approximately 3 months. Ubaldo Rodas MD Physical Exam GENERAL: Awake and alert, obese, on T-piece, NAD SKIN: Warm and moist. No generalized rash HEENT: [place] conjunctivae, no petechia or hemorrhage. No scleral icterus. NECK: Large and thick. S/P trach, site ok CHEST: Coarse BS eufemia, equal breath sounds CARDIAC: regular rate and rhythm, no murmur ABDOMEN: soft, obese, (+) BS and normoactive, no tenderness, no guarding or rebound. : Becker in place, urine looks clear MUSCULOSKELETAL: Extremities without clubbing, cyanosis. Mild edema NEUROLOGICAL: Awake and interacting. stable PSYCH: Awake, cooperative LINE: PIV with no evidence of infection : Becker in place, urine looks clear Assessment & Plan Remarks IMPRESSION Recurrent respiratory failure due to pulmonary edema - CXR better New PNA: PSAE and MSSA, S/P Rx - sputum with GNR, prob colonized; CXR clear Fevers, etiology? better - possible due to pulmonary, has PSAE and Staph aureus in sputum - ?atelectasis, pluggng now that he is doing Tpiece - CXR clear - ?drug Leukocytosis, decreasing Pneumonia, C/S MSSA, S/P Rx x 2 JACOB Morbid obesity Allergy to PCN, swelling RECOMMENDATION Clinically doing well from ID standpoint He has been off Abx Monitor for S/Sxs of new infection I will be available prn Please reconsult if with any new ID issue or question D/W Elisha Archer MD Jun 28, 2016 13:52
--- NOTE | 2016-06-28 14:34 | HHI.PR ---
Subjective Remarks appears comfortable, having left shoulder pain Objective Vitals Vital Signs Date Time Temp Pulse Resp B/P Pulse Ox O2 Delivery O2 Flow Rate FiO2 06/28/16 14:00 94 06/28/16 12:00 99.3 94 36 122/74 94 06/28/16 12:00 94 06/28/16 10:00 92 06/28/16 08:34 92 T-piece 6.00 35 06/28/16 08:00 99.0 98 27 98/64 98 06/28/16 08:00 90 06/28/16 07:00 93 T-Piece 7.00 40 06/28/16 06:00 95 06/28/16 04:00 99.0 90 24 104/64 90 06/28/16 04:00 90 06/28/16 02:00 86 06/28/16 00:00 83 06/28/16 00:00 98.6 83 19 100/64 93 06/27/16 22:31 93 T-piece 6.00 35 06/27/16 22:00 87 06/27/16 20:00 100 06/27/16 20:00 98.6 100 24 96/53 94 06/27/16 19:00 94 T-Piece 7.00 40 06/27/16 18:00 86 06/27/16 16:00 92 06/27/16 16:00 98.6 92 24 105/58 94 06/27/16 14:44 94 T-piece 6.00 35 I/O 06/27/16 06/27/16 06/27/16 06/28/16 06/28/16 06/28/16 07:00 15:00 23:00 07:00 15:00 23:00 Intake Total 400 ml 720 ml 350 ml 240 ml Output Total 900 ml 300 ml 625 ml 600 ml Balance -500 ml 420 ml -275 ml -360 ml Intake Oral 400 ml 720 ml 350 ml 240 ml IV Total 0 ml 0 ml 0 ml 0 ml Output Urine Total 900 ml 300 ml 625 ml 600 ml # Bowel Movements 0 0 1 0 Result Diagram: 06/27/166 06/27/166 Imaging Last Impressions Chest X-Ray 06/25/16 0600 Signed Impressions: Service Date/Time: Saturday, June 25, 2016 03:27 - CONCLUSION: No significant interval change. Rodrigo Martinez MD Abdomen X-Ray 06/19/16 0000 Signed Impressions: Service Date/Time: Sunday, June 19, 2016 10:43 - CONCLUSION: Gastric tube tip does not cross the diaphragm and the side port is approximately 8 cm above the diaphragm. Chano Goodwin MD Lower Extremity Ultrasound 06/04/16 0000 Signed Impressions: Service Date/Time: Saturday, June 04, 2016 14:54 - CONCLUSION: 1. No DVT identified. Dc Barton MD Liver Ultrasound 05/09/16 0000 Signed Impressions: Service Date/Time: Monday, May 09, 2016 22:28 - CONCLUSION: 1. Enlarged, fatty liver. 2. Small stones or tumefactive sludge adherent to one of the gallbladder arcos. 3. Splenomegaly. 4. Pancreas is obscured by overlying bowel gas and patient's body habitus. Arthur Kennedy MD Chest CT 03/28/16 0836 Signed Impressions: Service Date/Time: Monday, March 28, 2016 09:57 - CONCLUSION: Development areas of air bronchograms and consolidation more prominent in the right and left posterior basilar segments of the lower lobes. ET tube above the chanelle. Beranrd Hartman MD CT Angiography 03/24/16 1121 Signed Impressions: Service Date/Time: Thursday, March 24, 2016 12:47 - CONCLUSION: 1. There is respiratory motion artifact but no PE is identified through most of the segmental level pulmonary arteries. 2. Mildly enlarged main pulmonary artery may indicate pulmonary arterial hypertension. 3. 11 mm left lower lobe noncalcified pulmonary nodule. Suggest correlation with any prior imaging studies that could confirm longer-term stability. If none are available consider short-term followup noncontrast chest CT in approximately 3 months. Ubaldo Rodas MD Objective Remarks awake and alert,ff all commands, interactive anicteric, tracheostomy in place lungs decreased breath sounds, no rales or rhonchi Left shoulder- pain with movement- some protrusion ? dislocation regular rhythm abdomen- globularly soft, nontender, PEG scar- well healed LE- no edema, moves all extremities spontaneously, no calf tenderness Procedures 04/30/16 - tracheostomy by Dr. Reyes 05/03/16 - EGD with PEG placement by Dr. Faith 06/09/16 - PEG removal 06/21/16- repeat tracheostomy by Dr. Cuellar Date of Removal: Jun 26, 2016 A/P Problem List: (1) Acute hypercapnic respiratory failure ICD Code: J96.02 Status: Acute (2) Staphylococcus aureus pneumonia ICD Code: J15.211 Status: Acute (3) Encephalopathy ICD Code: G93.40 Status: Acute (4) JACOB (obstructive sleep apnea) ICD Code: G47.33 Status: Acute (5) Diabetes mellitus type 2 in obese ICD Code: E11.9 Status: Acute (6) Morbid obesity with BMI of 50.0-59.9, adult ICD Code: E66.01 Status: Acute (7) Obesity hypoventilation syndrome ICD Code: E66.2 Status: Acute Assessment and Plan Transaminitis. LFT improving. Abd pain, improved Follow trend of LFT. Liver US shows fatty liver. Small stones or tumefactive sludge adherent to one of the gallbladder arcos. 3. Splenomegaly. Avoid liver toxicity drugs. Hep panel negative Diabetes mellitus SSI for glycemic control (high scale) 30 units sliding scale insulin scale insulin in the past 24 hours, cont Levemir insulin 35 U Q12 (was decreased) continue to adjust decrease sliding scale to q 12 Diabetic Neuropathy: patient c/o left leg tingling/pins and needle on the left leg and seem. On lyrica to 50 mg po daily, improving. - No complains on Baclofen- improved PT ff Acute hypoxemic respiratory failure on T piece tolerates well JACOB [facility] History of staph aureus pneumonia/HCAP ARDS Dr. Perry ff- on tracheostomy- 40%- d/w RT- decrease fi02 if about 28% will try trach capping Trach collar with oxygen support to keep sat >92%. 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 Optifoam in place. Apply bacitracin. Wound cultures with normal sherine. Consult wound care, discussed with Nica from wound care, appreciate recommendations. Cleanse wound with NS and apply nonadhesive foam ag dressing over wound and change every other day and PRN for saturation or dislodgement. Add silvadene cream daily Mild MR/TR. Monitor HR and BP keep MAP>65mmHg 2-D echo 1/23 EF 60%. No regional wall motion abnormality. Mild MR/TR. Hypokalemia Hypernatremia-resolved Hypophosphatemia Monitor renal function, I/O's, electrolytes replacement per protocol. Urine output 625cc/per 12 hours Bumex 0.5mg/day- PEG route Constipation-resolved Moderate protein calorie malnutrition Nausea and vomiting- resolved Flatulence: Give simethicone On Glucerna 1.5@45ml/hr with 1 scoop whey protein 3 times a day, no residual Protonix 40mg daily On Reglan 10mg Q8, Senna and Colace twice a day.Discontinue MiraLAX twice a day and lactulose 4 times a day. PEG tube placement- 05/03- tolerating TF Zofran 4 mg every 6 hours when necessary Likely SERENITY Toxic metabolic encephalopathy-resolved Off Precedex infusion (05/04) Continue [place] 5/325mg every 6hrs scheduled, fentanyl patch 25mcgs, and Shauna 5mg PRN, fentanyl patch 25 mcgs q 3 days-will begin to wean narcotics Seroquel 25mg BID initiated 05/04 Acetaminophen for fever Staph aureus pneumonia- PSAE,MSSA Possible staph bacteremia Pertinent culture 04/27 - pansensitive staph aureus 04/27 blood cultures 2 negative 04/25 - urine -no growth 04/19 - blood cultures 2 out of 4 - staph aureus 04/19 - sputum - staph aureus 04/08 - sputum - staph aureus 04/03 - sputum - staph aureus 03/30 - sputum- -staph aureus 03/27 - sputum - staph aureus 03/26 - blood - staph hominis S/P On vancomycin 2 g IV every 12 are since 04/19 - 04/29 Azactam 04/27 through Finished clindamycin ID specialist consulted, Dr. Painter, appreciate recommendations. Finished course of abx- with Cefepime 06/25 ID specialist signed off. Leukocytosis Monitor CBC/coags Monitor WBC 11.7 trended down- afebrile Morbid obesity BMI of 51.8 Weight loss encouraged. DVT, GI prophylaxis -Bilateral lower extremity SCDs. PEG Protonix 40 mg daily. REglan 10 mg /PEG q 8 Lovenox 40 mg sq BID LINES: -Left upper extremity PICC line placed 04/15-05/04. Peripheral IVs x 2 Left shoulder pain- ? dislocation check plain films- if negative- get CT or MRI Discharge plan: Case management has been consulted for discharge plan. The patient T piece trials successful for 48 hours plans for LTAC transfer. Discussed with the case management, very difficult discharge, no LTAC facility will take patient, currently is looking for SNF. Ana Dent MD Jun 28, 2016 14:34
--- NOTE | 2016-06-28 16:00 | RADRPT ---
EXAM DATE/TIME: 06/28/2016 15:12 [facility] COMPARISON: No previous studies available for comparison. INDICATIONS : Evaluate for left shoulder dislocation. MEDICAL HISTORY : Diabetes mellitus type II. SURGICAL HISTORY : Tracheostomy. ENCOUNTER: Initial ACUITY: 1 day PAIN SCORE: Non-responsive. LOCATION: Left shoulder. FINDINGS: Two view examination of the left shoulder demonstrates no evidence of fracture or dislocation. The g lenohumeral and acromioclavicular joints are maintained. Bony mineralization is normal. A Y. view is not included which limits the evaluation CONCLUSION: 1. Limited but negative examination of the shoulder. Kyaw Rojo MD on June 28, 2016 at 15:57 Board Certified Radiologist. This report was verified electronically.
[2016-06-28] MEDS: INSULIN DETEMIR 100 UNITS/ML VIAL SQ SCH (20:09)
[2016-06-29] VITALS (15 sets, daily range): BP systolic 92–121; BP diastolic 53–84; PULSE 87–105; RESP 17–30; TEMP 98–99.3; O2SAT 90–96
[2016-06-29] MEDS: ARTIFICIAL TEARS OPTH SOLN 15 ML BTL EACH EYE SCH ×6 (02:00→21:05)
[2016-06-29] MEDS: ENOXAPARIN SODIUM 40 MG/0.4 ML SYRINGE SQ SCH ×2 (06:00→17:03)
[2016-06-29] MEDS: BACLOFEN 10 MG TAB PO SCH (08:14)
[2016-06-29] MEDS: DOCUSATE SODIUM 100 MG/10 ML UDC PO SCH ×2 (08:14→21:00)
[2016-06-29] MEDS: PANTOPRAZOLE SOD 40 MG DELAYED RELEASE TAB PO SCH (08:15)
[2016-06-29] MEDS: LACTOBACILLUS ACIDOPHILUS TAB PO SCH ×3 (08:15→17:03)
[2016-06-29] MEDS: POTASSIUM CHLORIDE 10 MEQ CONTROLLED RELEASE TAB PO SCH (08:15)
[2016-06-29] MEDS: PREGABALIN 75 MG CAP PO SCH ×2 (08:15→21:04)
[2016-06-29] MEDS: BENEPROTEIN POWDER 1 PACK G-TUBE SCH ×3 (08:15→17:03)
[2016-06-29] MEDS: POLYETHYLENE GLYCOL 17 GM PKG PO SCH ×2 (08:16→21:00)
[2016-06-29] MEDS: SODIUM CHLORIDE 0.9% FLUSH 5 ML FLUSH IVF SCH (08:16)
[2016-06-29] MEDS: BETAMETHASONE/CLOTRIMAZOLE CREAM 15 GM TOPICAL SCH ×2 (08:17→21:00)
[2016-06-29] MEDS: SENNOSIDES SYRUP 8.8 MG/5 ML CUP PO/TUBE SCH ×2 (08:17→21:00)
[2016-06-29] MEDS: NYSTATIN 100,000 U/GM PWD 15 GM BTL TOPICAL SCH ×2 (08:17→21:00)
[2016-06-29] MEDS: SILVER SULFADIAZINE 1% CR 400 GM JAR TOPICAL SCH (08:18)
[2016-06-29] MEDS: CHLORHEXIDINE 0.12% (ORAL KIT) 15 ML CUP MT SCH ×2 (08:18→20:00)
--- NOTE | 2016-06-29 14:47 | HHI.PR ---
Subjective Remarks patient doing great, up on the chair he up and ambulated today left shoulder pain- better - able to life shoulder but limited- better compared to yesterday batista will be discontinued today 06/29 Objective Vitals Vital Signs Date Time Temp Pulse Resp B/P Pulse Ox O2 Delivery O2 Flow Rate FiO2 06/29/16 14:00 105 06/29/16 13:24 96 T-piece 6.00 35 06/29/16 12:00 98.5 99 17 109/53 93 06/29/16 12:00 99 06/29/16 10:00 105 06/29/16 09:15 24 06/29/16 09:15 24 06/29/16 08:00 96 06/29/16 08:00 98.5 96 20 108/63 93 06/29/16 07:00 93 T-Piece 7.00 40 06/29/16 06:00 87 06/29/16 04:00 98.2 94 30 106/57 93 06/29/16 04:00 94 06/29/16 02:00 92 06/29/16 00:00 92 06/29/16 00:00 98.2 92 22 98/84 90 06/28/16 22:53 97 Nasal Cannula 2.00 06/28/16 22:46 95 T-piece 6.00 35 06/28/16 22:00 88 06/28/16 20:00 98.6 92 15 98/55 94 06/28/16 20:00 92 06/28/16 19:00 92 T-Piece 7.00 40 06/28/16 18:00 93 06/28/16 16:00 98.6 94 29 106/66 94 06/28/16 16:00 94 I/O 06/28/16 06/28/16 06/28/16 06/29/16 06/29/16 06/29/16 07:00 15:00 23:00 07:00 15:00 23:00 Intake Total 240 ml 610 ml 200 ml 240 ml 600 ml Output Total 600 ml 700 ml 900 ml 650 ml 300 ml Balance -360 ml -90 ml -700 ml -410 ml 300 ml Intake Oral 240 ml 600 ml 200 ml 240 ml 600 ml IV Total 0 ml 10 ml Output Urine Total 600 ml 700 ml 900 ml 650 ml 300 ml # Bowel Movements 0 1 0 0 0 Result Diagram: 06/27/16 0406 06/27/16 0406 Imaging Last Impressions Shoulder X-Ray 06/28/16 0000 Signed Impressions: Service Date/Time: June 15:12 - CONCLUSION: 1. Limited but negative examination of the shoulder. Kyaw Rojo MD Chest X-Ray 06/25/16 0600 Signed Impressions: Service Date/Time: Saturday, June 25, 2016 03:27 - CONCLUSION: No significant interval change. Rodrigo Martinez MD Abdomen X-Ray 06/19/16 0000 Signed Impressions: Service Date/Time: Sunday, June 19, 2016 10:43 - CONCLUSION: Gastric tube tip does not cross the diaphragm and the side port is approximately 8 cm above the diaphragm. Chano Goodwin MD Lower Extremity Ultrasound 06/04/16 0000 Signed Impressions: Service Date/Time: Saturday, June 04, 2016 14:54 - CONCLUSION: 1. No DVT identified. Dc Barton MD Liver Ultrasound 05/09/16 0000 Signed Impressions: Service Date/Time: Monday, May 09, 2016 22:28 - CONCLUSION: 1. Enlarged, fatty liver. 2. Small stones or tumefactive sludge adherent to one of the gallbladder arcos. 3. Splenomegaly. 4. Pancreas is obscured by overlying bowel gas and patient's body habitus. Arthur Kennedy MD Chest CT 03/28/16 0836 Signed Impressions: Service Date/Time: Monday, March 28, 2016 09:57 - CONCLUSION: Development areas of air bronchograms and consolidation more prominent in the right and left posterior basilar segments of the lower lobes. ET tube above the chanelle. Bernard Hartman MD CT Angiography 03/24/16 1121 Signed Impressions: Service Date/Time: Thursday, March 24, 2016 12:47 - CONCLUSION: 1. There is respiratory motion artifact but no PE is identified through most of the segmental level pulmonary arteries. 2. Mildly enlarged main pulmonary artery may indicate pulmonary arterial hypertension. 3. 11 mm left lower lobe noncalcified pulmonary nodule. Suggest correlation with any prior imaging studies that could confirm longer-term stability. If none are available consider short-term followup noncontrast chest CT in approximately 3 months. Ubaldo Rodas MD Objective Remarks awake and alert,ff all commands, interactive anicteric, tracheostomy in place lungs decreased breath sounds, no rales or rhonchi regular rhythm abdomen- globularly soft, nontender, PEG scar- well healed LE- no edema, moves all extremities spontaneously, no calf tenderness left shoulder- limited range- but non tender Procedures 04/30/16 - tracheostomy by Dr. Reyes 05/03/16 - EGD with PEG placement by Dr. Faith 06/09/16 - PEG removal 06/21/16- repeat tracheostomy by Dr. Cuellar Assessment to: Remove Date of Removal: Jun 29, 2016 A/P Problem List: (1) Acute hypercapnic respiratory failure ICD Code: J96.02 Status: Acute (2) Staphylococcus aureus pneumonia ICD Code: J15.211 Status: Acute (3) Encephalopathy ICD Code: G93.40 Status: Acute (4) JACOB (obstructive sleep apnea) ICD Code: G47.33 Status: Acute (5) Diabetes mellitus type 2 in obese ICD Code: E11.9 Status: Acute (6) Morbid obesity with BMI of 50.0-59.9, adult ICD Code: E66.01 Status: Acute (7) Obesity hypoventilation syndrome ICD Code: E66.2 Status: Acute Assessment and Plan Transaminitis. LFT improving. Abd pain, improved Follow trend of LFT. Liver US shows fatty liver. Small stones or tumefactive sludge adherent to one of the gallbladder arcos. 3. Splenomegaly. Avoid liver toxicity drugs. Hep panel negative Diabetes mellitus SSI for glycemic control (high scale) 30 units sliding scale insulin scale insulin in the past 24 hours, cont Levemir insulin 35 U Q12 (was decreased) continue to adjust decrease sliding scale to q 12 Diabetic Neuropathy: patient c/o left leg tingling/pins and needle on the left leg and seem. On lyrica to 50 mg po daily, improving. - No complains on Baclofen- improved PT ff Acute hypoxemic respiratory failure on T piece tolerates well JACOB [facility] History of staph aureus pneumonia/HCAP ARDS Dr. Perry ff- on tracheostomy- 40%- d/w RT- decrease fi02 if about 28% will try trach capping Trach collar with oxygen support to keep sat >92%. 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 Optifoam in place. Apply bacitracin. Wound cultures with normal sherine. Consult wound care, discussed with Nica from wound care, appreciate recommendations. Cleanse wound with NS and apply nonadhesive foam ag dressing over wound and change every other day and PRN for saturation or dislodgement. Add silvadene cream daily Mild MR/TR. Monitor HR and BP keep MAP>65mmHg 2-D echo 03/26 EF 60%. No regional wall motion abnormality. Mild MR/TR. Hypokalemia Hypernatremia-resolved Hypophosphatemia Monitor renal function, I/O's, electrolytes replacement per protocol. Urine output 625cc/per 12 hours Bumex 0.5mg/day- PEG route Constipation-resolved Moderate protein calorie malnutrition Nausea and vomiting- resolved Flatulence: Give simethicone On Glucerna 1.5@45ml/hr with 1 scoop whey protein 3 times a day, no residual Protonix 40mg daily On Reglan 10mg Q8, Senna and Colace twice a day.Discontinue MiraLAX twice a day and lactulose 4 times a day. PEG tube placement- 05/03- tolerating TF Zofran 4 mg every 6 hours when necessary Likely SERENITY Toxic metabolic encephalopathy-resolved Off Precedex infusion (05/04) Continue [place] 5/325mg every 6hrs scheduled, fentanyl patch 25mcgs, and Shauna 5mg PRN, fentanyl patch 25 mcgs q 3 days-will begin to wean narcotics Seroquel 25mg BID initiated 05/04 Acetaminophen for fever Staph aureus pneumonia- PSAE,MSSA Possible staph bacteremia Pertinent culture 04/27 - pansensitive staph aureus 04/27 blood cultures 2 negative 04/25 - urine -no growth 04/19 - blood cultures 2 out of 4 - staph aureus 04/19 - sputum - staph aureus 04/08 - sputum - staph aureus 04/03 - sputum - staph aureus 03/30 - sputum- -staph aureus 03/27 - sputum - staph aureus 03/26 - blood - staph hominis S/P On vancomycin 2 g IV every 12 are since 04/19 - 04/29 Azactam 04/27 through Finished clindamycin ID specialist consulted, Dr. Painter, appreciate recommendations. Finished course of abx- with Cefepime 06/25 ID specialist signed off. Leukocytosis Monitor CBC/coags Monitor WBC 11.7 trended down- afebrile Morbid obesity BMI of 51.8 Weight loss encouraged. DVT, GI prophylaxis -Bilateral lower extremity SCDs. PEG Protonix 40 mg daily. REglan 10 mg /PEG q 8 Lovenox 40 mg sq BID LINES: -Left upper extremity PICC line placed 04/15-05/04. Peripheral IVs x 2 Left shoulder pain- - limited range of motion- Xrays negative for dislocation. PT consulted to specifically address this. if worsening pain- get MRI or CT Discharge plan: Case management has been consulted for discharge plan. The patient T piece trials successful for 48 hours plans for LTAC transfer. Discussed with the case management, very difficult discharge, no LTAC facility will take patient, currently is looking for SNF. Ana Dent MD Jun 29, 2016 14:47
[2016-06-29] MEDS: INSULIN DETEMIR 100 UNITS/ML VIAL SQ SCH (21:00)
[2016-06-30] VITALS (9 sets, daily range): BP systolic 100–132; BP diastolic 55–70; PULSE 89–104; RESP 16–20; TEMP 97.5–98.3; O2SAT 92–97
[2016-06-30] MEDS: ARTIFICIAL TEARS OPTH SOLN 15 ML BTL EACH EYE SCH ×6 (02:03→21:08)
[2016-06-30] MEDS: ENOXAPARIN SODIUM 40 MG/0.4 ML SYRINGE SQ SCH ×2 (05:56→16:28)
--- NOTE | 2016-06-30 07:05 | RADRPT ---
EXAM DATE/TIME: 06/30/2016 06:07 [place] COMPARISON: CHEST SINGLE AP, June 25, 2016, 3:27. INDICATIONS : Shortness of breath. MEDICAL HISTORY : Diabetes mellitus type II. SURGICAL HISTORY : Tracheostomy ENCOUNTER: Subsequent ACUITY: 2 months PAIN SCORE: Non-responsive. LOCATION: Bilateral chest FINDINGS: Mild perihilar and basilar consolidation seen on both sides, not significantly changed. No large effu jossue demonstrated. No pneumothorax. Heart size stable, upper limits of normal. Tracheostomy tube again noted, appears normally positioned. CONCLUSION: No significant change. Mild bilateral perihilar and basilar consolidation again noted. Ubaldo Ortiz MD on June 30, 2016 at 7:03 Board Certified Radiologist. This report was verified electronically.
[2016-06-30] MEDS: CHLORHEXIDINE 0.12% (ORAL KIT) 15 ML CUP MT SCH ×2 (08:00→20:00)
[2016-06-30] MEDS: PANTOPRAZOLE SOD 40 MG DELAYED RELEASE TAB PO SCH (08:48)
[2016-06-30] MEDS: BACLOFEN 10 MG TAB PO SCH (08:48)
[2016-06-30] MEDS: POTASSIUM CHLORIDE 10 MEQ CONTROLLED RELEASE TAB PO SCH (08:48)
[2016-06-30] MEDS: PREGABALIN 75 MG CAP PO SCH ×2 (08:48→21:06)
[2016-06-30] MEDS: LACTOBACILLUS ACIDOPHILUS TAB PO SCH ×3 (08:48→16:27)
[2016-06-30] MEDS: BETAMETHASONE/CLOTRIMAZOLE CREAM 15 GM TOPICAL SCH ×2 (08:49→21:07)
[2016-06-30] MEDS: POLYETHYLENE GLYCOL 17 GM PKG PO SCH ×2 (08:49→21:06)
[2016-06-30] MEDS: SODIUM CHLORIDE 0.9% FLUSH 5 ML FLUSH IVF SCH (08:49)
[2016-06-30] MEDS: DOCUSATE SODIUM 100 MG/10 ML UDC PO SCH ×3 (08:49→21:06)
[2016-06-30] MEDS: NYSTATIN 100,000 U/GM PWD 15 GM BTL TOPICAL SCH ×2 (08:49→21:00)
[2016-06-30] MEDS: SILVER SULFADIAZINE 1% CR 400 GM JAR TOPICAL SCH (08:49)
[2016-06-30] MEDS: BENEPROTEIN POWDER 1 PACK G-TUBE SCH ×3 (08:49→16:27)
[2016-06-30] MEDS: SENNOSIDES SYRUP 8.8 MG/5 ML CUP PO/TUBE SCH ×3 (08:49→21:06)
--- NOTE | 2016-06-30 16:30 | HHI.PR ---
Subjective Remarks Patient denies any current concerns at this time. He endorses that he is overall feeling better, he gives me a thumbs up. He shakes his head no when asked of any chest pain, shortness of breath, fevers, or calf pain. He is sitting up in a chair smiling. T piece is currently in place. Objective Vitals Vital Signs Date Time Temp Pulse Resp B/P Pulse Ox O2 Delivery O2 Flow Rate FiO2 06/30/16 12:00 98.0 101 20 104/60 96 06/30/16 11:49 95 T-piece 6.00 35 06/30/16 09:10 99 06/30/16 09:10 T-Piece 6.00 35 06/30/16 08:00 98.3 95 20 115/70 93 06/30/16 04:00 97.5 92 20 109/66 93 06/30/16 00:00 97.7 89 20 132/66 97 06/29/16 23:00 T-Piece 6.00 35 06/29/16 23:00 93 06/29/16 22:17 98.0 99 20 121/63 95 06/29/16 20:54 94 T-piece 6.00 35 06/29/16 20:00 100 06/29/16 20:00 99.2 100 20 92/55 93 06/29/16 19:00 93 T-Piece 7.00 40 06/29/16 18:00 101 I/O 06/29/16 06/29/16 06/29/16 06/30/16 06/30/16 06/30/16 07:00 15:00 23:00 07:00 15:00 23:00 Intake Total 240 ml 600 ml 240 ml 480 ml 720 ml Output Total 650 ml 300 ml 250 ml 600 ml 300 ml Balance -410 ml 300 ml -10 ml -120 ml 420 ml Intake Oral 240 ml 600 ml 240 ml 480 ml 720 ml Output Urine Total 650 ml 300 ml 250 ml 600 ml 300 ml # Bowel Movements 0 0 0 0 Result Diagram: 06/27/1640506/27/16405 Objective Remarks GEN: Well-developed, well-nourished patient. No acute distress. Trach, on T- Piece CV: Regular rate and rhythm without obvious murmurs LUNGS: Clear to auscultation bilaterally. Normal respiratory effort. No wheezes , rales, rhonchi. GI: Soft, nontender, nondistended. No palpable masses. Bowel sounds WNL. PEG scar, well-healed EXT: No edema. NEURO/PSYCH: Afocal. Awake, alert. Follows commands, interactive Procedures 04/30/16 - tracheostomy by Dr. Reyes 05/03/16 - EGD with PEG placement by Dr. Faith 06/09/16 - PEG removal 06/21/16- repeat tracheostomy by Dr. Cuellar Date of Removal: Jun 29, 2016 A/P Problem List: (1) Acute hypercapnic respiratory failure ICD Code: J96.02 Status: Acute (2) Staphylococcus aureus pneumonia ICD Code: J15.211 Status: Acute (3) Encephalopathy ICD Code: G93.40 Status: Acute (4) JACOB (obstructive sleep apnea) ICD Code: G47.33 Status: Acute (5) Diabetes mellitus type 2 in obese ICD Code: E11.9 Status: Acute (6) Morbid obesity with BMI of 50.0-59.9, adult ICD Code: E66.01 Status: Acute (7) Obesity hypoventilation syndrome ICD Code: E66.2 Status: Acute Assessment and Plan Transaminitis. LFT improving. Abd pain, improved Follow trend of LFT. Liver US shows fatty liver. Small stones or tumefactive sludge adherent to one of the gallbladder arcos. 3. Splenomegaly. Avoid liver toxicity drugs. Hep panel negative Diabetes mellitus Currently on levemir 5 units HS. Glucose tightly controlled, will continue to adjust prn. Hold for hypoglycemia. Diabetic Neuropathy: patient c/o left leg tingling/pins and needle on the left leg and seem. On lyrica to 50 mg po daily, improving. - No complains on Baclofen- improved PT ff Acute hypoxemic respiratory failure on T piece tolerates well J[facility]OB [facility] History of staph aureus pneumonia/HCAP ARDS Currently on T-Piece Pulm following, appreciate rec's. Trach collar with oxygen support to keep sat >92%. 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 Optifoam in place. Apply bacitracin. Wound cultures with normal sherine. Consult wound care, discussed with Nica from wound care, appreciate recommendations. Cleanse wound with NS and apply nonadhesive foam ag dressing over wound and change every other day and PRN for saturation or dislodgement. Add silvadene cream daily Mild MR/TR. Monitor HR and BP keep MAP>65mmHg 2-D echo 03/26 EF 60%. No regional wall motion abnormality. Mild MR/TR. Hypokalemia Hypernatremia-resolved Hypophosphatemia Monitor renal function, I/O's, electrolytes replacement per protocol. Urine output 625cc/per 12 hours Bumex 0.5mg/day- PEG route Constipation-resolved Moderate protein calorie malnutrition Nausea and vomiting- resolved Flatulence: Give simethicone On Glucerna 1.5@45ml/hr with 1 scoop whey protein 3 times a day, no residual Protonix 40mg daily On Reglan 10mg Q8, Senna and Colace twice a day.Discontinue MiraLAX twice a day and lactulose 4 times a day. PEG tube placement- 05/03- tolerating TF Zofran 4 mg every 6 hours when necessary Likely SERENITY Toxic metabolic encephalopathy-resolved Off Precedex infusion (05/04) Continue [place] 5/325mg every 6hrs scheduled, fentanyl patch 25mcgs, and Shauna 5mg PRN, fentanyl patch 25 mcgs q 3 days-will begin to wean narcotics Seroquel 25mg BID initiated 05/04 Acetaminophen for fever Staph aureus pneumonia- PSAE,MSSA Possible staph bacteremia Pertinent culture 04/27 - pansensitive staph aureus 04/27 blood cultures 2 negative 04/25 - urine -no growth 04/19 - blood cultures 2 out of 4 - staph aureus 04/19 - sputum - staph aureus 04/08 - sputum - staph aureus 04/03 - sputum - staph aureus 03/30 - sputum- -staph aureus 03/27 - sputum - staph aureus 03/26 - blood - staph hominis S/P On vancomycin 2 g IV every 12 are since 04/19 - 04/29 Azactam 04/27 through Finished clindamycin ID specialist consulted, Dr. Painter, appreciate recommendations. Finished course of abx- with Cefepime 06/25 ID specialist signed off. Leukocytosis Monitor CBC/coags Monitor WBC, trending down (14.0 today), will continue to monitor Morbid obesity BMI of 51.8 Weight loss encouraged. DVT, GI prophylaxis -Bilateral lower extremity SCDs. PEG Protonix 40 mg daily. REglan 10 mg /PEG q 8 Lovenox 40 mg sq BID Left shoulder pain- - limited range of motion- Xrays negative for dislocation. PT consulted to specifically address this. if worsening pain- get MRI or CT Villa Cantu MD R3 Jun 30, 2016 16:30
[2016-06-30] MEDS: INSULIN DETEMIR 100 UNITS/ML VIAL SQ SCH (21:06)
[2016-07-01] VITALS (10 sets, daily range): BP systolic 106–154; BP diastolic 53–72; PULSE 91–99; RESP 16–20; TEMP 97.5–98.8; O2SAT 94–97
[2016-07-01] MEDS: ARTIFICIAL TEARS OPTH SOLN 15 ML BTL EACH EYE SCH ×6 (01:49→20:34)
[2016-07-01] MEDS: ENOXAPARIN SODIUM 40 MG/0.4 ML SYRINGE SQ SCH ×2 (05:47→17:34)
[2016-07-01] MEDS: CHLORHEXIDINE 0.12% (ORAL KIT) 15 ML CUP MT SCH ×2 (08:00→20:00)
[2016-07-01] MEDS: POLYETHYLENE GLYCOL 17 GM PKG PO SCH ×2 (09:00→20:31)
[2016-07-01] MEDS: DOCUSATE SODIUM 100 MG/10 ML UDC PO SCH ×2 (09:00→20:31)
--- NOTE | 2016-07-01 09:14 | HHI.PR ---
Subjective Remarks No acute events overnight. Vital signs remained stable. Patient denies any new concerns at this time. He gives me a thumbs up when I asked about his breathing. He denies any chest pain, calf pain, or discomfort of any kind. Labs are again normal today. He remains on a T piece. Objective Vitals Vital Signs Date Time Temp Pulse Resp B/P Pulse Ox O2 Delivery O2 Flow Rate FiO2 07/01/16 08:00 98.6 96 20 108/53 94 07/01/16 04:00 97.5 93 16 134/72 96 07/01/16 00:00 98.1 94 16 106/64 94 06/30/16 21:08 T-Piece 6.00 35 06/30/16 20:03 91 06/30/16 20:00 98.3 93 16 114/64 92 06/30/16 16:00 98.2 104 20 100/55 93 06/30/16 12:00 98.0 101 20 104/60 96 06/30/16 11:49 95 T-piece 6.00 35 I/O 06/30/16 06/30/16 06/30/16 07/01/16 07/01/16 07/01/16 07:00 15:00 23:00 07:00 15:00 23:00 Intake Total 480 ml 720 ml 240 ml 0 ml Output Total 600 ml 300 ml 850 ml 650 ml Balance -120 ml 420 ml -610 ml -650 ml Intake Oral 480 ml 720 ml 240 ml 0 ml Output Urine Total 600 ml 300 ml 850 ml 650 ml # Bowel Movements 0 0 1 Result Diagram: 06/27/16 0406 06/27/16 0406 Objective Remarks GEN: Well-developed, well-nourished patient. No acute distress. Smiling. Trach , on T-Piece CV: Regular rate and rhythm without obvious murmurs LUNGS: Clear to auscultation bilaterally. Normal respiratory effort. No wheezes , rales, rhonchi. GI: Soft, nontender, nondistended. No palpable masses. Bowel sounds WNL. PEG scar, well-healed EXT: No edema. NEURO/PSYCH: Afocal. Awake, alert. Follows commands, interactive Procedures 04/30/16 - tracheostomy by Dr. Reyes 05/03/16 - EGD with PEG placement by Dr. Faith 06/09/16 - PEG removal 06/21/16- repeat tracheostomy by Dr. Cuellar Date of Removal: Jun 29, 2016 A/P Problem List: (1) Acute hypercapnic respiratory failure ICD Code: J96.02 Status: Acute (2) Staphylococcus aureus pneumonia ICD Code: J15.211 Status: Acute (3) Encephalopathy ICD Code: G93.40 Status: Acute (4) JACOB (obstructive sleep apnea) ICD Code: G47.33 Status: Acute (5) Diabetes mellitus type 2 in obese ICD Code: E11.9 Status: Acute (6) Morbid obesity with BMI of 50.0-59.9, adult ICD Code: E66.01 Status: Acute (7) Obesity hypoventilation syndrome ICD Code: E66.2 Status: Acute Assessment and Plan Transaminitis. LFT improving. Abd pain, resolved Follow trend of LFT. Liver US shows fatty liver. Small stones or tumefactive sludge adherent to one of the gallbladder arcos. 3. Splenomegaly. Avoid liver toxicity drugs. Hep panel negative Diabetes mellitus Currently on levemir 5 units HS. Glucose tightly controlled, if remains tightly controlled could consider discontinuing Levemir. Hold for hypoglycemia. Diabetic Neuropathy: patient c/o left leg tingling/pins and needle on the left leg and seem. On lyrica to 50 mg po daily, improving. - No complains on Baclofen- improved PT ff Acute hypoxemic respiratory failure on T piece tolerates well [facility] History of staph aureus pneumonia/HCAP ARDS Currently on T-Piece, and tolerating well Pulm following, appreciate rec's. Trach collar with oxygen support to keep sat >92%. 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 Optifoam in place. Apply bacitracin. Wound cultures with normal sherine. Consult wound care, discussed with Nica from wound care, appreciate recommendations. Cleanse wound with NS and apply nonadhesive foam ag dressing over wound and change every other day and PRN for saturation or dislodgement. Add silvadene cream daily Mild MR/TR. Monitor HR and BP keep MAP>65mmHg 2-D echo 03/26 EF 60%. No regional wall motion abnormality. Mild MR/TR. Hypokalemia Hypernatremia-resolved Hypophosphatemia Monitor renal function, I/O's, electrolytes replacement per protocol. Urine output 625cc/per 12 hours Bumex 0.5mg/day- PEG route Constipation-resolved Moderate protein calorie malnutrition Nausea and vomiting- resolved Flatulence: Give simethicone On Glucerna 1.5@45ml/hr with 1 scoop whey protein 3 times a day, no residual Protonix 40mg daily On Reglan 10mg Q8, Senna and Colace twice a day.Discontinue MiraLAX twice a day and lactulose 4 times a day. PEG tube placement- 05/03- tolerating TF Zofran 4 mg every 6 hours when necessary Likely SERENITY Toxic metabolic encephalopathy-resolved Off Precedex infusion (05/04) Continue [place] 5/325mg every 6hrs scheduled, fentanyl patch 25mcgs, and Shauna 5mg PRN, fentanyl patch 25 mcgs q 3 days-will begin to wean narcotics Seroquel 25mg BID initiated 05/04 Acetaminophen for fever Staph aureus pneumonia- PSAE,MSSA Possible staph bacteremia Pertinent culture 04/27 - pansensitive staph aureus 04/27 blood cultures 2 negative 04/25 - urine -no growth 04/19 - blood cultures 2 out of 4 - staph aureus 04/19 - sputum - staph aureus 04/08 - sputum - staph aureus 04/03 - sputum - staph aureus 03/30 - sputum- -staph aureus 03/27 - sputum - staph aureus 03/26 - blood - staph hominis S/P On vancomycin 2 g IV every 12 are since 04/19 - 04/29 Azactam 04/27 through Finished clindamycin ID specialist consulted, Dr. Painter, appreciate recommendations. Finished course of abx- with Cefepime 06/25 ID specialist signed off. Leukocytosis Monitor CBC/coags Monitor WBC, trending down (14.0 today), will continue to monitor Morbid obesity BMI of 51.8 Weight loss encouraged. DVT, GI prophylaxis -Bilateral lower extremity SCDs. PEG Protonix 40 mg daily. REglan 10 mg /PEG q 8 Lovenox 40 mg sq BID Left shoulder pain- - limited range of motion- Xrays negative for dislocation. PT consulted to specifically address this. if worsening pain- get MRI or CT Discharge Planning Pending adequate placement w/ SNF. Pt is a difficult placement. Case management is actively working on placement options. Villa Cantu MD R3 Jul 01, 2016 09:14
[2016-07-01] MEDS: PREGABALIN 75 MG CAP PO SCH ×2 (10:48→20:31)
[2016-07-01] MEDS: PANTOPRAZOLE SOD 40 MG DELAYED RELEASE TAB PO SCH (10:48)
[2016-07-01] MEDS: POTASSIUM CHLORIDE 10 MEQ CONTROLLED RELEASE TAB PO SCH (10:48)
[2016-07-01] MEDS: BACLOFEN 10 MG TAB PO SCH (10:48)
[2016-07-01] MEDS: LACTOBACILLUS ACIDOPHILUS TAB PO SCH ×3 (10:48→17:33)
[2016-07-01] MEDS: NYSTATIN 100,000 U/GM PWD 15 GM BTL TOPICAL SCH ×2 (10:49→20:33)
[2016-07-01] MEDS: SILVER SULFADIAZINE 1% CR 400 GM JAR TOPICAL SCH (10:49)
[2016-07-01] MEDS: SENNOSIDES SYRUP 8.8 MG/5 ML CUP PO/TUBE SCH ×2 (10:50→20:31)
[2016-07-01] MEDS: BETAMETHASONE/CLOTRIMAZOLE CREAM 15 GM TOPICAL SCH ×2 (10:50→20:32)
[2016-07-01 11:04] LABS: AUTOMATED NEUTROPHIL # 9.8 TH/MM3 (1.8-7.7); BASOPHIL # 0.2 TH/MM3 (0-0.2); BASOPHIL % 1.7 % (0.0-2.0); EOSINOPHIL # 0.4 TH/MM3 (0-0.4); HEMATOCRIT 35.9 % (39.0-51.0); LYMPH % 22.7 % (9.0-44.0); LYMPHOCYTE # 3.3 TH/MM3 (1.0-4.8); MEAN CELL VOLUME 84.9 FL (80.0-100.0); MEAN CORPUSCULAR HEMOGLOBIN 27.4 PG (27.0-34.0); MEAN CORPUSCULAR HGB CONC 32.3 % (32.0-36.0); MONO % 4.6 % (0.0-8.0); PLATELET COUNT 402 TH/MM3 (150-450); RED BLOOD COUNT 4.22 MIL/MM3 (4.50-5.90); RED CELL DISTRIBUTION WIDTH 18.2 % (11.6-17.2); WHITE BLOOD COUNT 14.4 TH/MM3 (4.0-11.0)
[2016-07-01 11:05] LABS: HEMO FLAGS AUTO DIFF
[2016-07-01 11:07] LABS: BICARBONATE 31.9 MEQ/L (21.0-32.0); POTASSIUM 4.2 MEQ/L (3.5-5.1)
[2016-07-01] MEDS: BENEPROTEIN POWDER 1 PACK G-TUBE SCH ×3 (11:07→17:34)
[2016-07-01] MEDS: SODIUM CHLORIDE 0.9% FLUSH 5 ML FLUSH IVF SCH (11:08)
[2016-07-01 16:47] LABS: PLATELET ESTIMATE SMEAR HIGH (NORMAL); PLATELET MORPHOLOGY NORMAL (NORMAL); SCAN/DIFF AUTO DIFF CONFIRMED
[2016-07-01] MEDS: INSULIN DETEMIR 100 UNITS/ML VIAL SQ SCH (20:32)
[2016-07-02] VITALS (10 sets, daily range): BP systolic 94–132; BP diastolic 53–76; PULSE 90–103; RESP 16–24; TEMP 98.2–98.8; O2SAT 90–95
[2016-07-02] MEDS: ARTIFICIAL TEARS OPTH SOLN 15 ML BTL EACH EYE SCH ×6 (02:00→21:46)
[2016-07-02] MEDS: ENOXAPARIN SODIUM 40 MG/0.4 ML SYRINGE SQ SCH ×2 (05:32→17:02)
[2016-07-02] MEDS: CHLORHEXIDINE 0.12% (ORAL KIT) 15 ML CUP MT SCH ×2 (08:49→20:00)
[2016-07-02] MEDS: BENEPROTEIN POWDER 1 PACK G-TUBE SCH ×3 (08:49→17:02)
[2016-07-02] MEDS: SODIUM CHLORIDE 0.9% FLUSH 5 ML FLUSH IVF SCH (08:50)
[2016-07-02] MEDS: BETAMETHASONE/CLOTRIMAZOLE CREAM 15 GM TOPICAL SCH ×2 (08:51→21:00)
[2016-07-02] MEDS: LACTOBACILLUS ACIDOPHILUS TAB PO SCH ×3 (08:51→17:02)
[2016-07-02] MEDS: NYSTATIN 100,000 U/GM PWD 15 GM BTL TOPICAL SCH ×2 (08:51→21:00)
[2016-07-02] MEDS: SILVER SULFADIAZINE 1% CR 400 GM JAR TOPICAL SCH (08:51)
[2016-07-02] MEDS: PANTOPRAZOLE SOD 40 MG DELAYED RELEASE TAB PO SCH (08:51)
[2016-07-02] MEDS: PREGABALIN 75 MG CAP PO SCH ×2 (08:51→21:42)
[2016-07-02] MEDS: DOCUSATE SODIUM 100 MG/10 ML UDC PO SCH ×3 (08:51→21:00)
[2016-07-02] MEDS: SENNOSIDES SYRUP 8.8 MG/5 ML CUP PO/TUBE SCH ×3 (08:51→21:00)
[2016-07-02] MEDS: POLYETHYLENE GLYCOL 17 GM PKG PO SCH ×3 (08:51→21:00)
[2016-07-02] MEDS: BACLOFEN 10 MG TAB PO SCH (08:51)
[2016-07-02] MEDS: POTASSIUM CHLORIDE 10 MEQ CONTROLLED RELEASE TAB PO SCH (08:51)
--- NOTE | 2016-07-02 09:42 | HHI.PR ---
Subjective Remarks in no acute distress. no fever. no new complaints. Objective Vitals Vital Signs Date Time Temp Pulse Resp B/P Pulse Ox O2 Delivery O2 Flow Rate FiO2 07/02/16 08:13 T-Piece 6.00 35 07/02/16 08:00 98.2 95 18 121/71 90 07/02/16 04:00 98.7 94 20 108/70 93 07/02/16 03:31 T-Piece 6.00 35 07/02/16 00:00 98.7 90 19 132/76 94 07/02/16 00:00 T-Piece 6.00 35 07/01/16 20:34 T-Piece 6.00 35 07/01/16 20:08 97 07/01/16 20:00 98.8 99 18 154/57 95 07/01/16 18:45 95 T-piece 35 07/01/16 16:00 98.6 95 18 108/55 94 07/01/16 12:00 98.3 91 20 110/63 97 I/O 07/01/16 07/01/16 07/01/16 07/02/16 07/02/16 07/02/16 07:00 15:00 23:00 07:00 15:00 23:00 Intake Total 0 ml 840 ml Output Total 650 ml 400 ml 250 ml Balance -650 ml 440 ml -250 ml Intake Oral 0 ml 840 ml Output Urine Total 650 ml 400 ml 250 ml # Bowel Movements 1 1 1 Result Diagram: 07/01/16 0753 07/01/16 0753 Imaging Last Impressions Chest X-Ray 06/30/16 0600 Signed Impressions: Service Date/Time: Thursday, June 30, 2016 06:07 - CONCLUSION: No significant change. Mild bilateral perihilar and basilar consolidation again noted. Ubaldo Ortiz MD Shoulder X-Ray 06/28/16 0000 Signed Impressions: Service Date/Time: June 15:12 - CONCLUSION: 1. Limited but negative examination of the shoulder. Kyaw Rojo MD Abdomen X-Ray 06/19/16 0000 Signed Impressions: Service Date/Time: Sunday, June 19, 2016 10:43 - CONCLUSION: Gastric tube tip does not cross the diaphragm and the side port is approximately 8 cm above the diaphragm. Chano Goodwin MD Lower Extremity Ultrasound 06/04/16 0000 Signed Impressions: Service Date/Time: Saturday, June 04, 2016 14:54 - CONCLUSION: 1. No DVT identified. Dc Barton MD Liver Ultrasound 05/09/16 0000 Signed Impressions: Service Date/Time: Monday, May 09, 2016 22:28 - CONCLUSION: 1. Enlarged, fatty liver. 2. Small stones or tumefactive sludge adherent to one of the gallbladder arcos. 3. Splenomegaly. 4. Pancreas is obscured by overlying bowel gas and patient's body habitus. Arthur Kennedy MD Chest CT 03/28/16 0836 Signed Impressions: Service Date/Time: Monday, March 28, 2016 09:57 - CONCLUSION: Development areas of air bronchograms and consolidation more prominent in the right and left posterior basilar segments of the lower lobes. ET tube above the chanelle. Bernard Hartman MD CT Angiography 03/24/16 1121 Signed Impressions: Service Date/Time: Thursday, March 24, 2016 12:47 - CONCLUSION: 1. There is respiratory motion artifact but no PE is identified through most of the segmental level pulmonary arteries. 2. Mildly enlarged main pulmonary artery may indicate pulmonary arterial hypertension. 3. 11 mm left lower lobe noncalcified pulmonary nodule. Suggest correlation with any prior imaging studies that could confirm longer-term stability. If none are available consider short-term followup noncontrast chest CT in approximately 3 months. Ubaldo Rodas MD Objective Remarks GENERAL: in no apparent distress. Neck; trach in place CARDIOVASCULAR: Regular rate and regular rhythm without murmurs, gallops, or rubs. RESPIRATORY: Clear to auscultation. Breath sounds equal bilaterally. No wheezes , rales, or rhonchi. GASTROINTESTINAL: Abdomen soft, non-tender, nondistended. Normal, active bowel sounds MUSCULOSKELETAL: Extremities without clubbing, cyanosis, or edema. NEURO: Alert & Oriented x4 to person, place, time, situation. Moves all ext x4 Procedures 04/30/16 - tracheostomy by Dr. Reyes 05/03/16 - EGD with PEG placement by Dr. Faith 06/09/16 - PEG removal 06/21/16- repeat tracheostomy by Dr. Cuellar Medications and IVs Current Medications IV Flush (NS Flush) 2 ml UNSCH PRN IVF FLUSH AFTER USING IV ACCESS Last administered on 05/23/16 05:55; Start 03/24/16 at 11:30 Iohexol (Omnipaque 350 Inj) 89 ml STK-MED ONCE IV Last administered on 13:08; Start 03/24/16 at 13:08; Stop 03/24/16 at 13:09; Status DC Albuterol/ Ipratropium (Duoneb Neb) 1 ampule Q6HR NEB NEB Last administered on 04/04/16 07:42; Start 03/24/16 at 17:00; Stop 04/04/16 at 07:43; Status DC Dextrose (D50w (Vial) Inj) 25 ml UNSCH PRN IV PUSH HYPOGLYCEMIA-SEE COMMENTS; Start 03/24/16 at 16:30; Stop 03/31/16 at 11:22; Status DC Glucagon (Glucagon Inj) 1 mg UNSCH PRN OTHER HYPOGLYCEMIA-SEE COMMENTS; Start 03/24/16 at 16:30; Stop 03/31/16 at 11:22; Status DC Insulin Human Regular (NovoLIN R SUPPLEMENTAL SCALE) 1 ACHS SLIDING SCALE SQ Last administered on 03/31/16 06:09; Start 03/24/16 at 21:00; Stop 03/31/16 at 11:16; Status DC Albuterol/ Ipratropium (Duoneb Neb) 1 ampule Q2HR NEB PRN NEB WHEEZING AND SOB Last administered on 04/20/16 08:10; Start 03/24/16 at 16:45; Stop 04/23/16 at 13:22; Status DC Enoxaparin Sodium (Lovenox Inj) 40 mg Q24H SQ Last administered on 03/25/16 17 :00; Start 03/24/16 at 17:00; Stop 03/26/16 at 16:40; Status DC Pantoprazole Sodium (Protonix) 40 mg DAILY PO Last administered on 03/26/16 08 :35; Start 03/25/16 at 09:00; Stop 03/26/16 at 16:40; Status DC Influenza Virus Vaccine (Flu (Quadrivalent) Vaccine Inj) 0.5 ml ONCE ONCE IM Last administered on 03/25/16 08:57; Start 03/25/16 at 10:00; Stop 03/25/16 at 10:01; Status DC Chlorhexidine Gluconate (Chlorhexidine 2% Cloth) 3 pack DAILY@04 TOP Last administered on 03/29/16 03:42; Start 03/25/16 at 04:00; Stop 03/29/16 at 04:01 ; Status DC Chlorhexidine Gluconate (Chlorhexidine 2% Cloth) 3 pack UNSCH PRN TOP HYGIENIC CARE; Start 03/24/16 at 19:15; Stop 03/29/16 at 19:07; Status DC Tiotropium [place] (Spiriva Inh) 18 mcg DAILY INH Last administered on 08:36; Start 03/25/16 at 13:45; Stop 05/05/16 at 13:25; Status DC Metformin HCl (Glucophage) 500 mg BIDPC PO Last administered on 03/28/16 08:18 ; Start 03/26/16 at 09:00; Stop 04/07/16 at 10:16; Status DC Betamethasone/ Clotrimazole (Lotrisone Cream) 1 applic Q12HR TOPICAL Last administered on 07/02/16 08:51; Start 03/26/16 at 09:00 Methylprednisolone Sodium Succinate 60 mg 60 mg Q12HR IV PUSH Last administered on 03/28/16 08:17; Start 03/26/16 at 13:30; Stop 03/28/16 at 10:25 ; Status DC Propofol (Diprivan 1000 Mg/100ml Inj) 100 ml @ As Directed STK-MED ONCE .ROUTE ; Start 03/26/16 at 13:16; Stop 03/26/16 at 13:17; Status DC Etomidate 40 mg 40 mg STK-MED ONCE .ROUTE ; Start 03/26/16 at 13:20; Stop at 13:21; Status DC Propofol 100 ml @ 0 mls/hr TITRATE IV Last administered on 04/15/16 06:35; Start 03/26/16 at 14:30; Stop 05/02/16 at 08:34; Status DC Fentanyl Citrate (fentaNYL DRIP) 250 ml @ 0 mls/hr TITRATE IV Last administered on 05/02/16 15:59; Start 03/26/16 at 14:30; Stop 05/02/16 at 19:46; Status DC Rocuronium [place] (Zemuron Inj) 50 mg STK-MED ONCE .ROUTE ; Start 03/26/16 at 15:38; Stop 03/26/16 at 15:39; Status DC Rocuronium [place] (Zemuron Inj) 50 mg STK-MED ONCE .ROUTE ; Start 03/26/16 at 15:40; Stop 03/26/16 at 15:41; Status DC Furosemide (Lasix Inj) 40 mg ONCE ONCE IV PUSH Last administered on 03/26/16 18:00; Start 03/26/16 at 16:45; Stop 03/26/16 at 17:08; Status DC Furosemide (Lasix Inj) 20 mg BID@09,18 IV PUSH Last administered on 03/29/16 08:06; Start 03/26/16 at 18:00; Stop 03/29/16 at 08:43; Status DC Pantoprazole Sodium (Protonix Inj) 40 mg Q24H IV PUSH Last administered on 05/24 18:00; Start 03/26/16 at 18:00; Stop 05/25/16 at 12:09; Status DC Enoxaparin Sodium 40 mg 40 mg Q12H SQ Last administered on 07/02/16 05:32; Start 03/26/16 at 18:00 Aztreonam 2000 mg/ Sodium Chloride 100 ml @ 200 mls/hr Q8H IV Last administered on 03/31/16 10:23; Start 03/26/16 at 18:00; Stop 03/31/16 at 13:55 ; Status DC Potassium Chloride 100 ml @ 50 mls/hr Q2H PRN IV For Potassium 2.8 - 3.2 mEq/ L Last administered on 05/03/16 23:31; Start 03/26/16 at 16:45; Stop 05/17/16 at 17:12; Status DC Potassium Chloride (KCl 20 Meq Premix Inj) 100 ml @ 50 mls/hr Q2H PRN IV For Potassium 2.8 - 3.2 mEq/L Last administered on 05/07/16 23:26; Start 03/26/16 at 16:45; Stop 05/17/16 at 17:12; Status DC Potassium Chloride 40 meq 40 meq UNSCH PRN PO/TUBE For Potassium 3.3 - 3.5 mEq/ L Last administered on 05/17/16 09:28; Start 03/26/16 at 16:45; Stop 05/17/16 at 17:12; Status DC Potassium Chloride 100 ml @ 25 mls/hr UNSCH PRN IV For Potassium 3.3 - 3.5 mEq /L Last administered on 04/20/16 09:17; Start 03/26/16 at 16:45; Stop 05/17/16 at 17:12; Status DC Potassium Chloride 100 ml @ 50 mls/hr Q2H PRN IV For Potassium 3.3 - 3.5 mEq/ L Last administered on 05/08/16 11:22; Start 03/26/16 at 16:45; Stop 05/17/16 at 17:12; Status DC Magnesium Sulfate/ Sodium Chloride (Magnesium Sulfate Inj/NS Inj) 100 ml @ 50 mls/hr UNSCH PRN IV For Magnesium 0.9 - 1.1 mg/dL; Start 03/26/16 at 16:45; Stop 05/17/16 at 17:12; Status DC Magnesium Oxide 800 mg 800 mg UNSCH PRN PO For Magnesium 1.2 - 1.6 mg/dL; Start 03/26/16 at 16:45; Stop 05/17/16 at 17:12; Status DC Magnesium Sulfate/ Sodium Chloride (Magnesium Sulfate Inj/NS Inj) 100 ml @ 50 mls/hr UNSCH PRN IV For Magnesium 1.2 - 1.6 mg/dL; Start 03/26/16 at 16:45; Stop 05/17/16 at 17:12; Status DC Potassium Phosphate 2000 mg 2,000 mg Q4H PRN PO For Phosphorus < 2.5 mg/dL Last administered on 04/01/16 05:08; Start 03/26/16 at 16:45; Stop 05/17/16 at 17:12; Status DC Sodium Phosphate/ Sodium Chloride (Sodium Phosphate Inj/NS 250 ml Inj) 250 ml @ 42 mls/hr UNSCH PRN IV For Phosphorus < 2.5 mg/dL Last administered on 14:19; Start 03/26/16 at 16:45; Stop 05/17/16 at 17:12; Status DC Potassium Chloride (KCl 40 Meq/30 ml Liq) 40 meq UNSCH PRN PO/TUBE SEE LABEL COMMENTS; Start 03/26/16 at 16:45; Stop 05/17/16 at 17:12; Status DC Potassium Phosphate 2000 mg 2,000 mg UNSCH PRN PO/TUBE SEE LABEL COMMENTS; Start 03/26/16 at 16:45; Stop 05/17/16 at 17:12; Status DC Potassium Phosphate/Sodium Chloride (Potassium Phosphate Inj/NS 250 ml Inj) 260 ml @ 42 mls/hr UNSCH PRN IV SEE LABEL COMMENTS Last administered on 05/03/16 08:23; Start 03/26/16 at 16:45; Stop 05/17/16 at 17:12; Status DC Potassium Chloride 40 meq 40 meq DAILY PO Last administered on 04/01/16 09:18 ; Start 03/26/16 at 18:00; Stop 04/02/16 at 07:20; Status DC Metronidazole (Flagyl 500 Mg Inj) 100 ml @ 100 mls/hr Q8H IV Last administered on 04/10/16 07:44; Start 03/27/16 at 08:00; Stop 04/10/16 at 13:30; Status DC Protein 1 pack 1 pack TID G-TUBE Last administered on 07/02/16 08:49; Start at 09:00 Vancomycin HCl 1500 mg/Sodium Chloride 515 ml @ 257.5 mls/ hr ONCE ONCE IV Last administered on 03/27/16 10:21; Start 03/27/16 at 09:00; Stop 03/27/16 at 10:59; Status DC Pharmacy Profile Note 0 ml @ 0 mls/hr UNSCH OTHER ; Start 03/27/16 at 08:00; Stop 03/31/16 at 13:55; Status DC Vancomycin HCl/ Sodium Chloride (Vancomycin Inj/ NS 500 ml Inj) 520 ml @ 260 mls/hr Q24H IV Last administered on 03/30/16 04:04; Start 03/28/16 at 04:00; Stop 03/30/16 at 11:11; Status DC Miscellaneous Information SPECIFIC LAB TO BE ISHAAN... ONCE ONCE XX Last administered on 03/30/16 03:45; Start 03/30/16 at 03:45; Stop 03/30/16 at 03:46 ; Status DC Insulin Detemir 5 units 5 units Q12HR SQ Last administered on 03/31/16 21:17; Start 03/28/16 at 11:00; Stop 04/01/16 at 08:57; Status DC Pharmacy Profile Note (Vancomycin Consult Pharmacy) 0 ml @ 0 mls/hr UNSCH OTHER ; Start 03/28/16 at 10:15; Status UNV Methylprednisolone Sodium Succinate (SoluMEDROL INJ) 40 mg Q12HR IV PUSH Last administered on 04/17/16 07:26; Start 03/28/16 at 21:00; Stop 04/17/16 at 09:03 ; Status DC Docusate Sodium (Colace Liq) 100 mg Q12HR PO Last administered on 06/29/16 08: 14; Start 03/29/16 at 09:00 Sennosides (Senna Liq) 8.8 mg DAILY PO Last administered on 03/31/16 08:40; Start 03/29/16 at 09:00; Stop 04/01/16 at 08:57; Status DC Furosemide (Lasix Inj) 40 mg BID@09,18 IV PUSH ; Start 03/29/16 at 18:00; Stop 03/29/16 at 18:00; Status DC Furosemide 40 mg 40 mg BID@09,18 IV PUSH Last administered on 04/01/16 17:37; Start 03/29/16 at 09:00; Stop 04/02/16 at 07:14; Status DC Vancomycin HCl/ Sodium Chloride (Vancomycin Inj/ NS 500 ml Inj) 517.5 ml @ 250 mls/hr Q12H IV Last administered on 03/31/16 03:19; Start 03/30/16 at 16:00; Stop 03/31/16 at 13:55; Status DC Miscellaneous Information SPECIFIC LAB TO BE ISHAAN... ONCE ONCE XX Last administered on 03/31/16 15:41; Start 03/31/16 at 15:45; Stop 03/31/16 at 15:46 ; Status DC Acetaminophen (Tylenol 650 Mg/ 20 ml Liq) 650 mg Q6H PRN PO fever or pain 1-5 Last administered on 06/23/16 21:37; Start 03/30/16 at 15:45 Bumetanide (Bumex Inj) 1 mg ONCE ONCE IV PUSH ; Start 03/31/16 at 09:30; Stop 03/31/16 at 10:40; Status DC Dextrose (D50w (Vial) Inj) 25 ml UNSCH PRN IV PUSH HYPOGLYCEMIA-SEE COMMENTS; Start 03/31/16 at 11:15; Stop 04/03/16 at 17:53; Status DC Glucagon (Glucagon Inj) 1 mg UNSCH PRN OTHER HYPOGLYCEMIA-SEE COMMENTS; Start 03/31/16 at 11:15; Stop 04/07/16 at 10:46; Status DC Insulin Human Regular 1 1 Q6H SQ Last administered on 04/03/16 17:48; Start at 12:00; Stop 04/03/16 at 17:54; Status DC Levofloxacin/ Dextrose 150 ml @ 100 mls/hr Q24H IV Last administered on 14:07; Start 03/31/16 at 14:00; Stop 04/16/16 at 09:51; Status DC Fluconazole/ Sodium Chloride 200 ml @ 100 mls/hr Q24H IV Last administered on 04/09/16 15:48; Start 03/31/16 at 16:00; Stop 04/10/16 at 13:31; Status DC Linezolid 300 ml @ 300 mls/hr Q12H IV Last administered on 04/04/16 02:45; Start 03/31/16 at 15:00; Stop 04/04/16 at 09:59; Status DC Cisatracurium Besylate 100 mg/ Sodium Chloride 250 ml @ 0 mls/hr TITRATE IV Last administered on 04/14/16 11:39; Start 04/01/16 at 09:00; Stop 04/15/16 at 09:02; Status DC Epoprostenol Sodium/Sodium Chloride (Flolan (30,000 Ng/ml) Neb/NS Inj) 100 ml @ 8 mls/hr Q8H NEB Last administered on 04/15/16 02:32; Start 04/01/16 at 10:00 ; Stop 04/15/16 at 09:02; Status DC Insulin Detemir (Levemir Inj) 15 units Q12HR SQ Last administered on 04/01/16 20:13; Start 04/01/16 at 09:00; Stop 04/02/16 at 07:14; Status DC Sennosides (Senna Liq) 8.8 mg BID PO/TUBE Last administered on 06/26/16 09:07 ; Start 04/01/16 at 09:00 Polyethylene Glycol (Miralax) 17 gm BID PO Last administered on 04/03/16 21:14 ; Start 04/01/16 at 09:00; Stop 04/23/16 at 13:31; Status DC Lactulose (Lactulose Liq) 30 ml QID PO Last administered on 04/01/16 20:13; Start 04/01/16 at 09:00; Stop 04/02/16 at 07:14; Status DC Methylnaltrexone [place] (Relistor Inj) 12 mg ONCE ONCE SQ Last administered on 04/01/16 11:44; Start 04/01/16 at 10:30; Stop 04/01/16 at 10:31; Status DC Metoclopramide HCl (Reglan Inj) 5 mg Q8HR IV PUSH Last administered on 05:42; Start 04/01/16 at 14:00; Stop 04/11/16 at 09:15; Status DC Glycerin (Glycerin Adult Supp) 2 gm BID PRN RECTAL CONSTIPATION Last administered on 04/25/16 10:22; Start 04/01/16 at 09:00 Glycerin (Glycerin Adult Supp) 2 gm ONCE ONCE RECTAL Last administered on 04/01 10:52; Start 04/01/16 at 09:30; Stop 04/01/16 at 09:31; Status DC Mineral Oil (Mineral Oil Liq) 15 ml ONCE ONCE PO Last administered on 10:00; Start 04/01/16 at 10:00; Stop 04/01/16 at 10:01; Status DC Chlorhexidine Gluconate 15 ml 15 ml BID@08,20 MT Last administered on 07/02/16 08:49; Start 04/01/16 at 20:00 Midazolam HCl 100 ml @ 0 mls/hr TITRATE IV Last administered on 05/01/16 14:25 ; Start 04/01/16 at 11:45; Stop 05/02/16 at 08:35; Status DC Norepinephrine Bitartrate (Levophed-Dextrose Drip) 250 ml @ 0 mls/hr TITRATE IV Last administered on 04/01/16 21:15; Start 04/01/16 at 20:30; Stop 04/07/16 at 10:10; Status DC Furosemide (Lasix Inj) 20 mg BID@09,18 IV PUSH Last administered on 04/03/16 08:17; Start 04/02/16 at 09:00; Stop 04/03/16 at 12:58; Status DC Insulin Detemir (Levemir Inj) 25 units Q12HR SQ Last administered on 04/03/16 08:17; Start 04/02/16 at 09:00; Stop 04/03/16 at 12:48; Status DC IV Flush (NS Flush) DAILY IVF Last administered on 07/02/16 08:50; Start 04/03 at 09:00 IV Flush (NS Flush) UNSCH PRN IVF SEE PROTOCOL Last administered on 04/22/16 07:42; Start 04/02/16 at 09:30 Artificial Tears (Lacrilube Opht Oint) 1 applic Q12HR EACH EYE Last administered on 06/02/16 08:46; Start 04/02/16 at 12:00; Stop 06/02/16 at 14:00; Status DC Lactobacillus Acidophilus (Lactinex) 1 tab TID PO Last administered on 08:51; Start 04/03/16 at 13:00 Insulin Detemir (Levemir Inj) 40 units Q12HR SQ ; Start 04/03/16 at 21:00; Stop 04/03/16 at 21:00; Status DC Insulin Human NPH 15 units 15 units ONCE ONCE SQ Last administered on 13:08; Start 04/03/16 at 13:00; Stop 04/03/16 at 13:01; Status DC Sodium Chloride (NS 1000 ml Inj) 1,000 ml @ 999 mls/hr BOLUS ONCE IV Last administered on 04/03/16 13:10; Start 04/03/16 at 13:00; Stop 04/03/16 at 14:00 ; Status DC Sodium Polystyrene Sulfonate 15 gm 15 gm ONCE ONCE PO Last administered on 13:22; Start 04/03/16 at 13:00; Stop 04/03/16 at 13:08; Status DC Insulin Human Regular/Sodium Chloride (NovoLIN R (IV INFUSION)/NS Inj) 100 ml @ 0 mls/hr TITRATE IV Last administered on 04/03/16 22:44; Start 04/03/16 at 18: 00; Stop 04/04/16 at 09:12; Status DC Dextrose (D50w (Vial) Inj) 25 ml UNSCH PRN IV PUSH SEE LABEL COMMENTS; Start at 17:45; Stop 04/04/16 at 09:14; Status DC Miscellaneous Information 1 ONCE ONCE XX Last administered on 04/03/16 20:27 ; Start 04/03/16 at 17:45; Stop 04/03/16 at 17:52; Status DC Albuterol/ Ipratropium (Duoneb Neb) 1 ampule Q4HR NEB NEB Last administered on 04/08/16 03:48; Start 04/04/16 at 08:00; Stop 04/08/16 at 08:00; Status DC Furosemide 20 mg 20 mg BID@09,18 IV PUSH Last administered on 04/15/16 08:12; Start 04/04/16 at 09:00; Stop 04/15/16 at 09:53; Status DC Insulin Human Regular/Sodium Chloride (NovoLIN R (IV INFUSION)/NS Inj) 100 ml @ 0 mls/hr TITRATE IV Last administered on 04/07/16 04:33; Start 04/04/16 at 09:00 ; Stop 04/07/16 at 10:11; Status DC Dextrose (D50w (Vial) Inj) 25 ml UNSCH PRN IV PUSH SEE LABEL COMMENTS; Start at 09:00; Stop 04/07/16 at 10:46; Status DC Miscellaneous Information 1 ONCE ONCE XX Last administered on 04/04/16 10:00; Start 04/04/16 at 10:00; Stop 04/04/16 at 10:01; Status DC Insulin Detemir (Levemir Inj) 60 units Q12HR SQ Last administered on 04/07/16 07:41; Start 04/05/16 at 11:00; Stop 04/08/16 at 08:14; Status DC Dextrose (D50w (Vial) Inj) 25 ml UNSCH PRN IV PUSH HYPOGLYCEMIA-SEE COMMENTS; Start 04/07/16 at 10:15; Stop 04/07/16 at 17:03; Status DC Glucagon (Glucagon Inj) 1 mg UNSCH PRN OTHER HYPOGLYCEMIA-SEE COMMENTS; Start 04/07/16 at 10:15; Stop 04/07/16 at 17:03; Status DC Insulin Human Regular (NovoLIN R SUPPLEMENTAL SCALE) 1 Q6H SQ Last administered on 04/07/16 10:56; Start 04/07/16 at 11:00; Stop 04/07/16 at 17:01; Status DC Insulin Detemir (Levemir Inj) 20 units Q12HR SQ Last administered on 04/08/16 07:26; Start 04/07/16 at 21:00; Stop 04/08/16 at 08:14; Status DC Dextrose (D50w (Vial) Inj) 25 ml UNSCH PRN IV PUSH HYPOGLYCEMIA-SEE COMMENTS; Start 04/07/16 at 17:00; Stop 05/13/16 at 13:50; Status DC Glucagon (Glucagon Inj) 1 mg UNSCH PRN OTHER HYPOGLYCEMIA-SEE COMMENTS; Start 04/07/16 at 17:00; Stop 05/13/16 at 13:50; Status DC Insulin Human Regular (NovoLIN R SUPPLEMENTAL SCALE) 1 Q6H SQ Last administered on 05/11/16 17:08; Start 04/07/16 at 18:00; Stop 05/13/16 at 13:50 ; Status DC Insulin Detemir 24 units 24 units Q12HR SQ Last administered on 04/09/16 07:37 ; Start 04/08/16 at 21:00; Stop 04/09/16 at 10:01; Status DC Vancomycin HCl 1750 mg/Sodium Chloride 517.5 ml @ 258.75 mls/ hr ONCE ONCE IV Last administered on 04/08/16 14:42; Start 04/08/16 at 13:00; Stop 04/08/16 at 14:59; Status DC Sodium Chloride (NS 500 ml Inj) 500 ml @ 500 mls/hr BOLUS ONCE IV Last administered on 04/08/16 17:20; Start 04/08/16 at 17:15; Stop 04/08/16 at 18:14; Status DC Insulin Detemir 30 units 30 units Q12HR SQ Last administered on 04/10/16 08:29 ; Start 04/09/16 at 21:00; Stop 04/10/16 at 10:25; Status DC Pharmacy Profile Note 0 ml @ 0 mls/hr UNSCH OTHER ; Start 04/09/16 at 10:30; Stop 04/12/16 at 13:55; Status DC Vancomycin HCl/ Sodium Chloride (Vancomycin Inj/ NS 500 ml Inj) 515 ml @ 257.5 mls/ hr Q12H IV Last administered on 04/10/16 11:16; Start 04/09/16 at 12:00; Stop 04/10/16 at 13:51; Status DC Miscellaneous Information SPECIFIC LAB TO BE DRAWN:[facility]... ONCE ONCE XX ; Start 04/10/16 at 11:45; Stop 04/10/16 at 11:46; Status DC Insulin Detemir 35 units 35 units Q12HR SQ Last administered on 04/11/16 08:07 ; Start 04/10/16 at 21:00; Stop 04/11/16 at 09:15; Status DC Vancomycin HCl/ Sodium Chloride (Vancomycin Inj/ NS 500 ml Inj) 520 ml @ 260 mls/hr Q12H IV Last administered on 04/12/16 08:14; Start 04/10/16 at 20:00; Stop 04/12/16 at 13:55; Status DC Miscellaneous Information SPECIFIC LAB TO BE ISHAAN... ONCE ONCE XX Last administered on 04/12/16 07:45; Start 04/12/16 at 07:45; Stop 04/12/16 at 07:46; Status DC Insulin Detemir (Levemir Inj) 45 units Q12HR SQ Last administered on 04/23/16 08:29; Start 04/11/16 at 21:00; Stop 04/23/16 at 13:24; Status DC Metoclopramide HCl 10 mg 10 mg Q8HR IV PUSH Last administered on 05/25/16 06: 05; Start 04/11/16 at 14:00; Stop 05/25/16 at 12:09; Status DC Sodium Chloride (NS 1000 ml Inj) 2,000 ml @ 0 mls/hr NOW ONCE IV Last administered on 04/11/16 21:01; Start 04/11/16 at 21:00; Stop 04/11/16 at 21:01; Status DC Miscellaneous Information SPECIFIC LAB TO BE DRAWN:VANCOMYCIN TROUGH DATE TO... ONCE ONCE XX ; Start 04/13/16 at 19:45; Stop 04/13/16 at 19:46; Status Cancel Furosemide 20 mg 20 mg Q6H IV PUSH Last administered on 04/16/16 08:40; Start 04/12/16 at 15:00; Stop 04/16/16 at 09:25; Status DC Epoprostenol Sodium 30 ml/ Sodium Chloride 67.5 ml @ 8 mls/hr Q8H NEB ; Start 04/15/16 at 10:00; Stop 04/15/16 at 10:00; Status DC Epoprostenol Sodium/Sodium Chloride (Flolan (30,000 Ng/ml) Neb/NS Inj) 100 ml @ 8 mls/hr Q8H NEB Last administered on 04/18/16 02:09; Start 04/15/16 at 10:00 ; Stop 04/18/16 at 10:15; Status DC Furosemide (Lasix Inj) 20 mg Q8H IV PUSH Last administered on 04/23/16 08:31; Start 04/16/16 at 17:00; Stop 04/23/16 at 13:44; Status DC Methylprednisolone Sodium Succinate 40 mg 40 mg DAILY IV PUSH Last administered on 05/02/16 08:11; Start 04/18/16 at 09:00; Stop 05/02/16 at 08:39; Status DC Epoprostenol Sodium 25 ml/ Sodium Chloride 100 ml @ 8 mls/hr Q8H NEB Last administered on 04/19/16 13:12; Start 04/18/16 at 15:00; Stop 04/19/16 at 15:59 ; Status DC Vancomycin HCl 1500 mg/Sodium Chloride 515 ml @ 257.5 mls/ hr ONCE ONCE IV Last administered on 04/19/16 13:45; Start 04/19/16 at 13:00; Stop 04/19/16 at 14:59; Status DC Epoprostenol Sodium 12.5 ml/ Sodium Chloride 100 ml @ 8 mls/hr Q8H NEB Last administered on 04/20/16 00:29; Start 04/19/16 at 16:00; Stop 04/20/16 at 15:11 ; Status DC Pharmacy Profile Note 0 ml @ 0 mls/hr UNSCH OTHER ; Start 04/20/16 at 14:15; Stop 04/29/16 at 10:33; Status DC Vancomycin HCl/ Sodium Chloride (Vancomycin Inj/ NS 500 ml Inj) 520 ml @ 250 mls/hr Q12H IV Last administered on 04/24/16 05:53; Start 04/20/16 at 18:00; Stop 04/24/16 at 09:15; Status DC Miscellaneous Information SPECIFIC LAB TO BE DRAWN:VANCO TROUGH DATE TO... ONCE ONCE XX Last administered on 04/22/16 05:45; Start 04/22/16 at 05:45; Stop 04/22/16 at 05:46; Status DC Potassium Bicarb/ Potassium Chloride (K-Lyte Cl Eff) 25 meq Q12HR PO Last administered on 04/28/16 07:49; Start 04/21/16 at 21:00; Stop 05/27/16 at 08:44 ; Status DC Artificial Tears (Tears Naturale Opth Soln) 1 drop Q4H EACH EYE Last administered on 07/02/16 08:53; Start 04/21/16 at 18:00 Water (Free Water) 200 ml Q6HR G-TUBE Last administered on 04/30/16 12:00; Start 04/22/16 at 18:00; Stop 05/01/16 at 17:19; Status DC Albuterol/ Ipratropium (Duoneb Neb) 1 ampule Q6HR NEB NEB Last administered on 04/27/16 08:03; Start 04/23/16 at 16:00; Stop 04/27/16 at 16:00; Status DC Albuterol/ Ipratropium (Duoneb Neb) 1 ampule Q2HR NEB PRN NEB [id number] Last administered on 05/11/16 15:54; Start 04/23/16 at 13:15; Stop 05/17/16 at 20:14 ; Status DC Insulin Detemir (Levemir Inj) 55 units Q12HR SQ Last administered on 04/24/16 08:34; Start 04/23/16 at 21:00; Stop 04/24/16 at 12:17; Status DC Polyethylene Glycol (Miralax) 17 gm BID PO Last administered on 07/01/16 20:31 ; Start 04/24/16 at 09:00 Furosemide 20 mg 20 mg BID IV PUSH Last administered on 04/28/16 07:50; Start 04/23/16 at 21:00; Stop 04/28/16 at 11:08; Status DC Vancomycin HCl/ Sodium Chloride (Vancomycin Inj/ NS 500 ml Inj) 515 ml @ 257.5 mls/ hr Q12H IV Last administered on 04/28/16 11:59; Start 04/24/16 at 23:00; Stop 04/28/16 at 14:04; Status DC Miscellaneous Information SPECIFIC LAB TO BE ... ONCE ONCE XX Last administered on 04/25/16 22:45; Start 04/25/16 at 22:45; Stop 04/25/16 at 22:46 ; Status DC Insulin Detemir (Levemir Inj) 65 units Q12HR SQ Last administered on 04/25/16 09:00; Start 04/24/16 at 21:00; Stop 04/25/16 at 15:10; Status DC Polyethylene Glycol (Miralax) 17 gm ONCE ONCE PO Last administered on 16:21; Start 04/25/16 at 15:15; Stop 04/25/16 at 15:16; Status DC Polyethylene Glycol (Miralax) 17 gm DAILY PO ; Start 04/26/16 at 09:00; Stop at 11:33; Status DC Mineral Oil (Mineral Oil Liq) 15 ml ONCE ONCE PO Last administered on 16:21; Start 04/25/16 at 16:00; Stop 04/25/16 at 16:01; Status DC Potassium Chloride (KCl 40 Meq/30 ml Liq) 40 meq ONCE ONCE PO Last administered on 04/25/16 16:21; Start 04/25/16 at 15:15; Stop 04/25/16 at 15:16 ; Status DC Insulin Detemir (Levemir Inj) 75 units Q12HR SQ Last administered on 04/26/16 09:13; Start 04/25/16 at 21:00; Stop 04/26/16 at 14:43; Status DC Methylnaltrexone [place] (Relistor Inj) 12 mg ONCE ONCE SQ Last administered on 04/25/16 16:22; Start 04/25/16 at 16:00; Stop 04/25/16 at 16:01; Status DC Miscellaneous Information SPECIFIC LAB TO BE DRAWN:VANCO TROUGH DATE TO BE DRRenny.. ONCE ONCE XX Last administered on 04/28/16 10:45; Start 04/28/16 at 10: 45; Stop 04/28/16 at 10:46; Status DC Methylnaltrexone [place] (Relistor Inj) 12 mg ONCE ONCE SQ Last administered on 04/26/16 15:18; Start 04/26/16 at 14:30; Stop 04/26/16 at 14:56; Status DC Lactulose (Lactulose Liq) 30 ml QID PO Last administered on 04/28/16 07:47; Start 04/26/16 at 18:00; Stop 05/27/16 at 08:44; Status DC Mineral Oil (Mineral Oil Liq) 15 ml ONCE ONCE PO Last administered on 15:19; Start 04/26/16 at 14:30; Stop 04/26/16 at 14:56; Status DC Sennosides (Senna Liq) 8.8 mg ONCE ONCE PO Last administered on 04/26/16 15: 25; Start 04/26/16 at 14:30; Stop 04/26/16 at 14:56; Status DC Magnesium Citrate (Citroma Liq) 300 ml ONCE ONCE PO Last administered on 15:25; Start 04/26/16 at 14:45; Stop 04/26/16 at 14:56; Status DC Potassium Chloride (KCl 40 Meq/30 ml Liq) 40 meq ONCE ONCE PO Last administered on 04/26/16 15:25; Start 04/26/16 at 14:45; Stop 04/26/16 at 14:56 ; Status DC Insulin Detemir (Levemir Inj) 80 units Q12HR SQ Last administered on 04/28/16 07:49; Start 04/26/16 at 21:00; Stop 04/28/16 at 11:19; Status DC Nystatin 1 applic 1 applic Q12HR TOPICAL Last administered on 07/02/16 08:51; Start 04/27/16 at 11:00 Aztreonam/Sodium Chloride (Azactam Inj/NS Inj) 100 ml @ 200 mls/hr Q8H IV Last administered on 04/29/16 02:39; Start 04/27/16 at 10:00; Stop 04/29/16 at 10:34; Status DC Potassium Chloride (KCl 40 Meq/30 ml Liq) 40 meq ONCE ONCE PO Last administered on 04/27/16 13:00; Start 04/27/16 at 13:00; Stop 04/27/16 at 13:02 ; Status DC Albuterol/ Ipratropium (Duoneb Neb) 1 ampule Q4HR NEB NEB Last administered on 05/02/16 07:53; Start 04/28/16 at 12:00; Stop 05/02/16 at 12:00; Status DC Sodium Chloride 2 ml 2 ml Q8HR NEB NEB Last administered on 05/01/16 07:21; Start 04/28/16 at 16:00; Stop 05/01/16 at 15:59; Status DC Sodium Chloride/ Sterile Water (Sodium Chloride 23.4% Inj/Sterile Water For Inj ) 1,009.625 ml @ 84 mls/hr Q12H2M IV Last administered on 04/28/16 13:23; Start 04/28/16 at 13:00; Stop 04/29/16 at 01:01; Status DC Insulin Detemir 70 units 70 units Q12HR SQ Last administered on 05/03/16 08:08 ; Start 04/28/16 at 21:00; Stop 05/05/16 at 17:18; Status DC Vancomycin HCl/ Sodium Chloride (Vancomycin Inj/ NS 250 ml Inj) 262.5 ml @ 250 mls/hr Q12H IV Last administered on 04/29/16 00:18; Start 04/28/16 at 23:00; Stop 04/29/16 at 10:34; Status DC Miscellaneous Information SPECIFIC LAB TO BE ISHAAN... ONCE ONCE XX ; Start at 10:45; Stop 04/30/16 at 10:45; Status DC Clindamycin Phosphate/Sodium Chloride (Cleocin Inj/NS Inj) 104 ml @ 208 mls/hr Q8H IV Last administered on 05/06/16 15:52; Start 04/29/16 at 12:00; Stop at 12:00; Status DC Lidocaine/ Epinephrine (Xylocaine-Epi 1%-1:100,000 Inj) 30 ml STK-MED ONCE .ROUTE ; Start 04/30/16 at 13:00; Stop 04/30/16 at 13:01; Status DC Fentanyl Citrate 250 mcg 250 mcg STK-MED ONCE .ROUTE ; Start 04/30/16 at 15:28; Stop 04/30/16 at 15:29; Status DC Dexmedetomidine HCl (Precedex Inj) 50 ml @ 0 mls/hr TITRATE IV Last administered on 05/02/16 18:32; Start 05/01/16 at 17:00; Stop 05/02/16 at 19:00; Status DC Water (Free Water) 100 ml Q6HR G-TUBE Last administered on 06/09/16 12:00; Start 05/01/16 at 18:00; Stop 06/10/16 at 15:51; Status DC Fentanyl (Duragesic 25 Mcg Patch.72 Hr) 1 patch Q3D TD Last administered on 09:05; Start 05/02/16 at 09:00; Stop 06/19/16 at 08:05; Status DC Miscellaneous Information 1 Q3D T-DERMAL Last administered on 06/13/16 08:23; Start 05/05/16 at 09:00; Stop 06/19/16 at 08:05; Status DC Oxycodone HCl (Roxicodone Intensol Liq) 5 mg Q6H PRN PO PAIN SCALE 7 TO 10 Last administered on 05/23/16 05:54; Start 05/02/16 at 08:45; Stop 06/05/16 at 22 :00; Status DC Acetaminophen/ Hydrocodone Bitart ([place] 5-325 Mg) 1 tab Q6H PO Last administered on 05/06/16 15:52; Start 05/02/16 at 09:00; Stop 05/06/16 at 18:52; Status DC Methylprednisolone Sodium Succinate (SoluMEDROL INJ) 30 mg DAILY IV PUSH Last administered on 05/04/16 07:55; Start 05/03/16 at 09:00; Stop 05/04/16 at 10:09; Status DC Midazolam HCl (Versed Inj) 5 mg STK-MED ONCE .ROUTE Last administered on 16:18; Start 05/02/16 at 16:14; Stop 05/02/16 at 16:15; Status DC Lorazepam (Ativan Inj) 2 mg STK-MED ONCE .ROUTE Last administered on 05/02/16 16:19; Start 05/02/16 at 16:15; Stop 05/02/16 at 16:16; Status DC Midazolam HCl (Versed Inj) 5 mg NOW ONCE IV Last administered on 05/02/16 16: 30; Start 05/02/16 at 16:30; Stop 05/02/16 at 16:31; Status DC Lorazepam 2 mg 2 mg Q4H PRN IVP AGITATION Last administered on 06/13/16 21:22 ; Start 05/02/16 at 16:30; Stop 06/19/16 at 08:05; Status DC Dexmedetomidine HCl/Sodium Chloride (Precedex Inj/NS 250 ml Inj) 260 ml @ 0 mls/ hr TITRATE IV Last administered on 05/04/16 09:53; Start 05/02/16 at 19:01; Stop 05/04/16 at 16:31; Status DC Hydralazine HCl (Apresoline Inj) 10 mg Q4H PRN IV PUSH SBP >165 Last administered on 05/03/16 06:20; Start 05/02/16 at 22:00; Stop 06/05/16 at 20:34; Status DC Propofol (Diprivan 200 Mg/20 ml Inj) 170 mg STK-MED ONCE IV ; Start 05/03/16 at 15:06; Stop 05/03/16 at 15:07; Status DC Quetiapine Fumarate (SEROquel) 25 mg BID PO Last administered on 06/21/16 10: 58; Start 05/04/16 at 09:00; Stop 06/21/16 at 13:25; Status DC Methylprednisolone Sodium Succinate (SoluMEDROL INJ) 20 mg DAILY IV PUSH Last administered on 05/11/16 08:02; Start 05/05/16 at 09:00; Stop 05/12/16 at 09:13 ; Status DC Fentanyl Citrate (fentaNYL INJ) 50 mcg NOW ONCE IV Last administered on 01:03; Start 05/05/16 at 01:00; Stop 05/05/16 at 01:02; Status DC Metoprolol Tartrate (Lopressor Inj) 2.5 mg NOW ONCE IV PUSH Last administered on 05/05/16 04:17; Start 05/05/16 at 04:00; Stop 05/05/16 at 04:01; Status DC Ondansetron HCl (Zofran Inj) 4 mg Q6H PRN IV NAUSEA OR VOMITING; Start 05/05/16 at 06:45 Bumetanide (Bumex Inj) 0.5 mg DAILY IV PUSH Last administered on 05/24/16 09: 25; Start 05/05/16 at 09:00; Stop 05/24/16 at 10:39; Status DC Albuterol/ Ipratropium (Duoneb Neb) 1 ampule TID NEB INH Last administered on 05/09/16 13:05; Start 05/05/16 at 14:00; Stop 05/09/16 at 14:00; Status DC Insulin Detemir (Levemir Inj) 50 units Q12HR SQ Last administered on 05/11/16 20:54; Start 05/05/16 at 21:00; Stop 05/13/16 at 13:50; Status DC Acetaminophen/ Hydrocodone Bitart ([place] 5-325 Mg) 1 tab Q12HR PO Last administered on 06/18/16 19:40; Start 05/06/16 at 21:00; Stop 06/19/16 at 08:05 ; Status DC Propofol 200 mg 200 mg STK-MED ONCE IV ; Start 04/30/16 at 15:12; Stop 05/07/16 at 15:12; Status DC Parenteral Electrolytes (Normosol R Inj) 2,000 ml @ As Directed STK-MED ONCE IV ; Start 04/30/16 at 15:12; Stop 05/07/16 at 15:12; Status DC Potassium Chloride (KCl) 10 meq DAILY PO Last administered on 07/02/16 08:51; Start 05/10/16 at 09:30 Simethicone (Phazyme Chew) 125 mg DAILY PRN PO gas Last administered on 15:00; Start 05/11/16 at 15:00 Insulin Detemir (Levemir Inj) 35 units Q12HR SQ Last administered on 05/30/16 20:26; Start 05/13/16 at 21:00; Stop 06/05/16 at 22:00; Status DC Dextrose (D50w (Vial) Inj) 25 ml UNSCH PRN IV PUSH HYPOGLYCEMIA-SEE COMMENTS; Start 05/13/16 at 14:00; Stop 05/31/16 at 21:54; Status DC Glucagon (Glucagon Inj) 1 mg UNSCH PRN OTHER HYPOGLYCEMIA-SEE COMMENTS; Start 05/13/16 at 14:00; Stop 05/31/16 at 21:54; Status DC Insulin Human Regular (NovoLIN R SUPPLEMENTAL SCALE) 1 ACHS SLIDING SCALE SQ Last administered on 05/25/16 06:19; Start 05/13/16 at 16:00; Stop 05/25/16 at 12:14; Status DC Silver Sulfadiazine (Silvadene 1% Cream (400 Gm)) 1 applic DAILY TOPICAL Last administered on 07/02/16 08:51; Start 05/16/16 at 11:00 Pregabalin (Lyrica) 25 mg DAILY PO Last administered on 05/19/16 08:22; Start 05/17/16 at 11:45; Stop 05/20/16 at 10:29; Status DC Ipratropium [place] (Atrovent Neb) 0.5 mg Q2HR NEB PRN NEB wheezing Last administered on 05/27/16 00:28; Start 05/17/16 at 21:00 Diltiazem HCl (Cardizem) 30 mg ONCE ONCE PO Last administered on 05/17/16 22: 44; Start 05/17/16 at 22:45; Stop 05/17/16 at 22:46; Status DC Potassium Chloride (KCl) 40 meq ONCE ONCE PO Last administered on 05/17/16 22 :44; Start 05/17/16 at 22:45; Stop 05/17/16 at 22:46; Status DC Pregabalin (Lyrica) 50 mg DAILY PO Last administered on 06/18/16 08:33; Start 05/21/16 at 09:00; Stop 06/19/16 at 08:05; Status DC Baclofen (Lioresal) 10 mg Q12HR PO Last administered on 06/18/16 19:39; Start 05/24/16 at 10:45; Stop 06/19/16 at 08:05; Status DC Bumetanide (Bumetanide) 0.5 mg ONCE ONCE PO Last administered on 05/25/16 09: 21; Start 05/25/16 at 09:00; Stop 05/25/16 at 09:01; Status DC Miscellaneous (Pill Splitter) 1 ea UNSCH PRN OTHER SEE LABEL COMMENTS; Start at 10:45 Pantoprazole Sodium (Protonix) 40 mg DAILY PO Last administered on 07/02/16 08: 51; Start 05/26/16 at 09:00 Insulin Human Regular (NovoLIN R SUPPLEMENTAL SCALE) 1 Q12HR SQ Last administered on 05/26/16 22:40; Start 05/25/16 at 19:00; Stop 05/27/16 at 08:44 ; Status DC Metoclopramide HCl (Reglan) 10 mg Q8HR G-TUBE Last administered on 06/02/16 14: 43; Start 05/25/16 at 14:00; Stop 06/02/16 at 14:49; Status DC Albuterol Sulfate 2.5 mg 2.5 mg ONCE ONCE NEB Last administered on 05/27/16 00:45; Start 05/27/16 at 00:45; Stop 05/27/16 at 00:46; Status DC Sodium Chloride (NS 1000 ml Inj) 999 ml @ 0 mls/hr BOLUS ONCE IV Last administered on 05/27/16 02:01; Start 05/27/16 at 02:00; Stop 05/27/16 at 04:31 ; Status DC Adenosine (Adenocard Inj) 6 mg NOW ONCE IV PUSH Last administered on 02:01; Start 05/27/16 at 02:01; Stop 05/27/16 at 04:31; Status DC Adenosine (Adenocard Inj) 12 mg NOW ONCE IV PUSH Last administered on 02:11; Start 05/27/16 at 02:11; Stop 05/27/16 at 04:31; Status DC Insulin Human Regular 1 1 Q4HR SQ ; Start 05/27/16 at 12:00; Stop 05/28/16 at 01 :44; Status DC Sodium Chloride (NS 1000 ml Inj) 1,000 ml @ 100 mls/hr Q10H IV Last administered on 05/27/16 19:00; Start 05/27/16 at 09:00; Stop 05/28/16 at 04:59 ; Status DC Albuterol/ Ipratropium (Duoneb Neb) 1 ampule Q6HR NEB NEB Last administered on 05/31/16 07:29; Start 05/27/16 at 10:00; Stop 05/31/16 at 10:00; Status DC Insulin Human Regular (NovoLIN R SUPPLEMENTAL SCALE) 1 BID@07,15 SQ Last administered on 05/28/16 14:34; Start 05/28/16 at 07:00; Stop 05/31/16 at 21:53 ; Status DC Adenosine (Adenocard Inj) 6 mg STK-MED ONCE IV PUSH ; Start 05/27/16 at 05:00; Stop 05/28/16 at 12:54; Status DC Dextrose (D50w (Vial) Inj) 25 ml UNSCH PRN IV PUSH HYPOGLYCEMIA-SEE COMMENTS; Start 05/31/16 at 22:00 Glucagon (Glucagon Inj) 1 mg UNSCH PRN OTHER HYPOGLYCEMIA-SEE COMMENTS; Start 05/31/16 at 22:00; Stop 06/19/16 at 08:05; Status DC Insulin Aspart (NovoLOG SUPPLEMENTAL SCALE) 1 ACHS SLIDING SCALE SQ Last administered on 06/12/16 18:00; Start 06/01/16 at 07:00; Stop 06/22/16 at 16:52 ; Status DC Albuterol/ Ipratropium (Duoneb Neb) 1 ampule Q6HR NEB NEB Last administered on 06/06/16 08:29; Start 06/02/16 at 16:00; Stop 06/06/16 at 10:56; Status DC Albuterol/ Ipratropium (Duoneb Neb) 1 ampule Q2HR NEB PRN NEB dyspnea Last administered on 06/21/16 20:16; Start 06/02/16 at 15:00 Insulin Detemir 5 units 5 units HS SQ Last administered on 07/01/16 20:32; Start 06/06/16 at 21:00 Propofol (Diprivan 1000 Mg/100ml Inj) 100 ml @ As Directed STK-MED ONCE .ROUTE ; Start 06/12/16 at 15:40; Stop 06/12/16 at 15:41; Status DC Midazolam HCl (Versed Inj) 5 mg STK-MED ONCE .ROUTE ; Start 06/12/16 at 15:41; Stop 06/12/16 at 15:42; Status DC Chlorhexidine Gluconate 15 ml 15 ml BID@08,20 MT ; Start 06/12/16 at 20:00; Stop 06/12/16 at 20:00; Status DC Propofol 100 ml @ 0 mls/hr TITRATE IV Last administered on 06/13/16 17:09; Start 06/12/16 at 17:45; Stop 06/19/16 at 08:05; Status DC Fentanyl Citrate 250 ml @ 0 mls/hr TITRATE IV Last administered on 06/12/16 20 :08; Start 06/12/16 at 17:45; Stop 06/19/16 at 08:06; Status DC Levofloxacin/ Dextrose 150 ml @ 100 mls/hr Q24H IV Last administered on 13:05; Start 06/13/16 at 14:00; Stop 06/19/16 at 10:06; Status DC Sodium Chloride 1,000 ml @ 999 mls/hr BOLUS ONCE IV Last administered on 06/13 14:43; Start 06/13/16 at 13:30; Stop 06/13/16 at 14:30; Status DC Sodium Chloride 1,000 ml @ 999 mls/hr BOLUS ONCE IV Last administered on 06/13 14:43; Start 06/13/16 at 13:30; Stop 06/13/16 at 14:30; Status DC Potassium Chloride 10 meq/ Sodium Chloride 1,005 ml @ 75 mls/hr [id number] IV Last administered on 06/22/16 00:24; Start 06/13/16 at 15:00; Stop 06/22/16 at 18:02; Status DC Sodium Chloride 1,000 ml @ 0 mls/hr ONCE ONCE IV Last administered on 08:48; Start 06/15/16 at 07:30; Stop 06/15/16 at 07:31; Status DC Cefazolin Sodium/ Dextrose 50 ml @ 100 mls/hr Q8H IV Last administered on 06/15 12:48; Start 06/15/16 at 12:00; Stop 06/15/16 at 13:13; Status DC Vancomycin HCl 1500 mg/Sodium Chloride 515 ml @ 257.5 mls/ hr ONCE ONCE IV Last administered on 06/15/16 15:12; Start 06/15/16 at 14:00; Stop 06/15/16 at 15:59; Status DC Pharmacy Profile Note 0 ml @ 0 mls/hr UNSCH OTHER ; Start 06/15/16 at 13:00; Stop 06/19/16 at 10:06; Status DC Aztreonam 1000 mg/ Sodium Chloride 100 ml @ 200 mls/hr Q8H IV Last administered on 06/19/16 05:21; Start 06/15/16 at 13:00; Stop 06/19/16 at 10:06 ; Status DC Vancomycin HCl/ Sodium Chloride (Vancomycin Inj/ NS 500 ml Inj) 515 ml @ 257.5 mls/ hr Q12H IV Last administered on 06/17/16 02:49; Start 06/16/16 at 02:00; Stop 06/17/16 at 08:43; Status DC Miscellaneous Information SPECIFIC LAB TO BE DRAWN:VANCO TROUGH DATE TO BE DR... ONCE ONCE .XX Last administered on 06/17/16 01:45; Start 06/17/16 at 01 :45; Stop 06/17/16 at 01:46; Status DC Vancomycin HCl/ Sodium Chloride (Vancomycin Inj/ NS 500 ml Inj) 517.5 ml @ 257.5 mls/ hr Q12H IV Last administered on 06/19/16 03:33; Start 06/17/16 at 14:00; Stop 06/19/16 at 08:51; Status DC Miscellaneous Information SPECIFIC LAB TO BE DRAWN:VANCOMY... ONCE ONCE .XX Last administered on 06/19/16 02:04; Start 06/19/16 at 01:45; Stop 06/19/16 at 01:46; Status DC Miscellaneous Information D/C ICU ELECTROLYTE ORDERS... UNSCH PRN .XX SEE DOSE INSTRUCTIONS; Start 06/17/16 at 10:30; Status Cancel Miscellaneous Information ICU - CALL ORDERING PHYSIC... UNSCH PRN .XX SEE DOSE INSTRUCTIONS; Start 06/17/16 at 10:30; Status Cancel Potassium Chloride (KCl 40 Meq Premix Inj) 100 ml @ 25 mls/hr UNSCH PRN IV ELECTROLYTE REPLACEMENT Last administered on 06/17/16 17:40; Start 06/17/16 at 10:30 Potassium Bicarb/ Potassium Chloride 50 meq 50 meq UNSCH PRN PO ELECTROLYTE REPLACEMENT; Start 06/17/16 at 10:30; Status Cancel Potassium Chloride 100 ml @ 50 mls/hr UNSCH PRN IV ELECTROLYTE REPLACEMENT; Start 06/17/16 at 10:30; Status Cancel Magnesium Sulfate 4 gm/Sodium Chloride 108 ml @ 54 mls/hr UNSCH PRN IV ELECTROLYTE REPLACEMENT; Start 06/17/16 at 10:30; Status Cancel Magnesium Sulfate/ Sodium Chloride (Magnesium Sulfate Inj/NS Inj) 104 ml @ 52 mls/hr UNSCH PRN IV ELECTROLYTE REPLACEMENT; Start 06/17/16 at 10:30; Status Cancel Magnesium Oxide 800 mg 800 mg UNSCH PRN PO ELECTROLYTE REPLACEMENT; Start 06/17 at 10:30; Status Cancel Sodium Phosphate/ Sodium Chloride (Sodium Phosphate Inj/NS 250 ml Inj) 260 ml @ 43.333 mls/ hr UNSCH PRN IV ELECTROLYTE REPLACEMENT; Start 06/17/16 at 10:30 ; Status Cancel Potassium Phosphate 2000 mg 2,000 mg UNSCH PRN PO ELECTROLYTE REPLACEMENT; Start 06/17/16 at 10:30; Status Cancel Potassium Phosphate/Sodium Chloride (Potassium Phosphate Inj/NS 250 ml Inj) 260 ml @ 43.333 mls/ hr UNSCH PRN IV ELECTROLYTE REPLACEMENT; Start 06/17/16 at 10 :30; Status Cancel Baclofen (Lioresal) 5 mg Q12HR PO Last administered on 06/21/16 10:58; Start 06/19/16 at 09:00; Stop 06/21/16 at 13:25; Status DC Pregabalin (Lyrica) 150 mg DAILY PO Last administered on 06/21/16 10:58; Start 06/19/16 at 09:00; Stop 06/21/16 at 13:25; Status DC Tizanidine HCl (Zanaflex) 2 mg Q12HR PO Last administered on 06/21/16 10:58; Start 06/19/16 at 09:00; Stop 06/21/16 at 13:25; Status DC Oxycodone HCl 2.5 mg 2.5 mg Q6H PRN PO pain 1-7 Last administered on 06/24/16 13:00; Start 06/19/16 at 08:15; Stop 06/24/16 at 16:18; Status DC Vancomycin HCl/ Sodium Chloride (Vancomycin Inj/ NS 500 ml Inj) 520 ml @ 257.5 mls/ hr Q12H IV ; Start 06/19/16 at 14:00; Stop 06/19/16 at 14:00; Status DC Miscellaneous Information SPECIFIC LAB TO BE DRAWN:VANCOMYCIN TROUGH DATE TO... ONCE ONCE .XX ; Start 06/21/16 at 01:45; Stop 06/21/16 at 01:45; Status DC Cefepime HCl 2000 mg/Sodium Chloride 100 ml @ 200 mls/hr Q12H IV Last administered on 06/26/16 00:00; Start 06/19/16 at 12:00; Stop 06/26/16 at 10:31 ; Status DC Norepinephrine Bitartrate 250 ml @ As Directed STK-MED ONCE IV Last administered on 06/19/16 16:09; Start 06/19/16 at 13:51; Stop 06/19/16 at 13:52 ; Status DC Sodium Chloride 1,000 ml @ 0 mls/hr BOLUS STAT IV ; Start 06/19/16 at 17:58; Stop 06/19/16 at 17:59; Status DC Fluconazole/ Sodium Chloride 200 ml @ 100 mls/hr Q24H IV Last administered on 06/22/16 09:12; Start 06/20/16 at 11:00; Stop 06/22/16 at 14:07; Status DC Vancomycin HCl 1500 mg/Sodium Chloride 515 ml @ 257.5 mls/ hr ONCE ONCE IV ; Start 06/20/16 at 11:00; Stop 06/20/16 at 11:26; Status DC Pharmacy Profile Note 0 ml @ 0 mls/hr UNSCH OTHER ; Start 06/20/16 at 11:00; Stop 06/22/16 at 14:07; Status DC Vancomycin HCl/ Sodium Chloride (Vancomycin Inj/ NS 500 ml Inj) 520 ml @ 250 mls/hr Q12H IV Last administered on 06/22/16 11:46; Start 06/20/16 at 13:00; Stop 06/22/16 at 14:07; Status DC Miscellaneous Information SPECIFIC LAB TO BE DRAWN:VANCO TROUGH DATE TO... ONCE ONCE .XX Last administered on 06/22/16 00:45; Start 06/22/16 at 00:45; Stop 06/22/16 at 00:46; Status DC Baclofen (Lioresal) 5 mg DAILY PO Last administered on 07/02/16 08:51; Start at 09:00 Pregabalin (Lyrica) 75 mg Q12HR PO Last administered on 07/02/16 08:51; Start 06/22/16 at 09:00 Miscellaneous Information SPECIFIC LAB TO BE ... ONCE ONCE .XX ; Start 06/23 at 12:45; Stop 06/23/16 at 12:45; Status DC Oxycodone HCl (Roxicodone) 2.5 mg Q4H PRN PO pain 1-6 Last administered on 08:52; Start 06/24/16 at 17:00 Date of Removal: Jun 29, 2016 A/P Assessment and Plan A/P Transaminitis. LFT improving. Abd pain, resolved Follow trend of LFT. Liver US shows fatty liver. Small stones or tumefactive sludge adherent to one of the gallbladder arcos. 3. Splenomegaly. Avoid liver toxicity drugs. Hep panel negative Diabetes mellitus Currently on levemir 5 units HS. Diabetic Neuropathy: patient c/o left leg tingling/pins and needle on the left leg and seem. On lyrica to 50 mg po daily, improving. - No complains on Baclofen- improved PT ff Acute hypoxemic respiratory failure on T piece tolerates well [facility] History of staph aureus pneumonia/HCAP ARDS Currently on T-Piece, and tolerating well Pulm following, appreciate rec's. Trach collar with oxygen support to keep sat >92%. 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 Optifoam in place. Apply bacitracin. Wound cultures with normal sherine. Consult wound care, discussed with Nica from wound care, appreciate recommendations. Cleanse wound with NS and apply nonadhesive foam ag dressing over wound and change every other day and PRN for saturation or dislodgement. on silvadene cream daily Mild MR/TR. Monitor HR and BP keep MAP>65mmHg 2-D echo 03/26 EF 60%. No regional wall motion abnormality. Mild MR/TR. Hypokalemia Hypernatremia-resolved Hypophosphatemia Monitor renal function, and electrolytes periodically. Bumex 0.5mg/day- PEG route Constipation-resolved Moderate protein calorie malnutrition Nausea and vomiting- resolved On tube feeding. Protonix 40mg daily On Reglan 10mg Q8, Senna and Colace twice a day.Discontinue MiraLAX twice a day and lactulose 4 times a day. PEG tube placement- 05/03- tolerating TF Zofran 4 mg every 6 hours when necessary Likely SERENITY Toxic metabolic encephalopathy-resolved Continue with pain control. Seroquel 25mg BID initiated 05/04 Acetaminophen for fever Staph aureus pneumonia- PSAE,MSSA Possible staph bacteremia Pertinent culture 04/27 - pansensitive staph aureus 04/27 blood cultures 2 negative 04/25 - urine -no growth 04/19 - blood cultures 2 out of 4 - staph aureus 04/19 - sputum - staph aureus 04/08 - sputum - staph aureus 04/03 - sputum - staph aureus 03/30 - sputum- -staph aureus 03/27 - sputum - staph aureus 03/26 - blood - staph hominis S/P On vancomycin 2 g IV every 12 are since 04/19 - 04/29 Azactam 04/27 through Finished clindamycin ID specialist consulted, Dr. Painter, appreciate recommendations. Finished course of abx- with Cefepime 06/25 ID specialist signed off. Leukocytosis Monitor CBC/coags Monitor WBC, trending down (14.0 today), will continue to monitor Morbid obesity BMI of 51.8 Weight loss encouraged. DVT, GI prophylaxis -Bilateral lower extremity SCDs. PEG Protonix 40 mg daily. REglan 10 mg /PEG q 8 Lovenox 40 mg sq BID Left shoulder pain- - limited range of motion- Xrays negative for dislocation. PT consulted to specifically address this. if worsening pain will consider imaging studies. Discharge Planning needs SNF placement. dc planning in progress. Mg Stearns MD July 02, 2016 09:41
--- NOTE | 2016-07-02 16:52 | HHI.PR ---
Subjective Remarks respiratory failure DOING WELL , NOW ON TTUBE tracheostomy done Objective Vital Signs Date Time Temp Pulse Resp B/P Pulse Ox O2 Delivery O2 Flow Rate FiO2 07/02/16 12:38 93 T-piece 6.00 35 07/02/16 12:00 98.7 103 20 115/73 93 07/02/16 10:02 18 07/02/16 10:02 18 07/02/16 08:13 T-Piece 6.00 35 07/02/16 08:00 98.2 95 18 121/71 90 07/02/16 08:00 96 07/02/16 04:00 98.7 94 20 108/70 93 07/02/16 03:31 T-Piece 6.00 35 07/02/16 00:00 98.7 90 19 132/76 94 07/02/16 00:00 T-Piece 6.00 35 07/01/16 20:34 T-Piece 6.00 35 07/01/16 20:08 97 07/01/16 20:00 98.8 99 18 154/57 95 07/01/16 18:45 95 T-piece 35 I/O 07/01/16 07/01/16 07/01/16 07/02/16 07/02/16 07/02/16 07:00 15:00 23:00 07:00 15:00 23:00 Intake Total 0 ml 840 ml 960 ml Output Total 650 ml 400 ml 250 ml 475 ml Balance -650 ml 440 ml -250 ml 485 ml Intake Oral 0 ml 840 ml 960 ml Output Urine Total 650 ml 400 ml 250 ml 475 ml # Bowel Movements 1 1 1 0 Result Diagram: 07/01/16 0753 07/01/16 0753 Objective Remarks GENERAL: SKIN: Warm and dry.on vent support HEAD: Atraumatic. Normocephalic. EYES: Pupils equal and round. No scleral icterus. No injection or drainage. ENT: No nasal bleeding or discharge. Mucous membranes pink and moist. NECK: Trachea midline. No JVD. CARDIOVASCULAR: Regular rate and rhythm. RESPIRATORY: No accessory muscle use. Clear to auscultation. Breath sounds equal bilaterally. GASTROINTESTINAL: Abdomen soft, non-tender, nondistended. Hepatic and splenic margins not palpable. MUSCULOSKELETAL: Extremities without clubbing, cyanosis, or edema. No obvious deformities. NEUROLOGICAL: Awake and alert. No obvious cranial nerve deficits. Motor grossly within normal limits. Five out of 5 muscle strength in the arms and legs. Normal speech. PSYCHIATRIC: Appropriate mood and affect; insight and judgment normal. Assessment and Plan Assessment and Plan respiratory failure morbid obesity plan O2 NEEDED pulm toilet prognosis guarded Orlando Perry MD July 02, 2016 16:52
[2016-07-02] MEDS: INSULIN DETEMIR 100 UNITS/ML VIAL SQ SCH (21:42)
[2016-07-03] VITALS (8 sets, daily range): BP systolic 92–117; BP diastolic 49–67; PULSE 86–102; RESP 16–18; TEMP 97.9–99; O2SAT 92–94
[2016-07-03] MEDS: ARTIFICIAL TEARS OPTH SOLN 15 ML BTL EACH EYE SCH ×6 (02:30→20:16)
[2016-07-03] MEDS: ENOXAPARIN SODIUM 40 MG/0.4 ML SYRINGE SQ SCH ×2 (05:19→17:23)
[2016-07-03] MEDS: CHLORHEXIDINE 0.12% (ORAL KIT) 15 ML CUP MT SCH ×2 (08:00→20:00)
--- NOTE | 2016-07-03 08:12 | HHI.PR ---
Subjective Remarks respiratory failure DOING WELL , NOW ON TTUBE tracheostomy done Objective Vital Signs Date Time Temp Pulse Resp B/P Pulse Ox O2 Delivery O2 Flow Rate FiO2 07/03/16 04:55 97.9 98 16 117/67 93 07/02/16 23:20 98.4 95 16 94/59 94 07/02/16 22:00 T-Piece 6.00 35 07/02/16 21:18 98.8 103 18 111/69 93 07/02/16 21:06 102 07/02/16 19:52 95 T-piece 35 07/02/16 17:02 18 07/02/16 16:00 98.5 98 24 96/53 94 07/02/16 12:38 93 T-piece 6.00 35 07/02/16 12:00 98.7 103 20 115/73 93 07/02/16 10:02 18 07/02/16 08:13 T-Piece 6.00 35 I/O 07/02/16 07/02/16 07/02/16 07/03/16 07/03/16 07/03/16 07:00 15:00 23:00 07:00 15:00 23:00 Intake Total 960 ml 722 ml 0 ml Output Total 250 ml 475 ml 125 ml 500 ml Balance -250 ml 485 ml 597 ml -500 ml Intake Oral 960 ml 720 ml 0 ml IV Total 2 ml Output Urine Total 250 ml 475 ml 125 ml 500 ml # Bowel Movements 1 0 0 0 Result Diagram: 07/01/16 0753 07/01/16 0753 Objective Remarks GENERAL: SKIN: Warm and dry.on vent support HEAD: Atraumatic. Normocephalic. EYES: Pupils equal and round. No scleral icterus. No injection or drainage. ENT: No nasal bleeding or discharge. Mucous membranes pink and moist. NECK: Trachea midline. No JVD. CARDIOVASCULAR: Regular rate and rhythm. RESPIRATORY: No accessory muscle use. Clear to auscultation. Breath sounds equal bilaterally. GASTROINTESTINAL: Abdomen soft, non-tender, nondistended. Hepatic and splenic margins not palpable. MUSCULOSKELETAL: Extremities without clubbing, cyanosis, or edema. No obvious deformities. NEUROLOGICAL: Awake and alert. No obvious cranial nerve deficits. Motor grossly within normal limits. Five out of 5 muscle strength in the arms and legs. Normal speech. PSYCHIATRIC: Appropriate mood and affect; insight and judgment normal. Assessment and Plan Assessment and Plan respiratory failure morbid obesity plan O2 NEEDED pulm toilet prognosis guarded Orlando Perry MD July 03, 2016 08:12
[2016-07-03] MEDS: DOCUSATE SODIUM 100 MG/10 ML UDC PO SCH ×2 (09:00→20:13)
[2016-07-03] MEDS: SODIUM CHLORIDE 0.9% FLUSH 5 ML FLUSH IVF SCH (09:00)
[2016-07-03] MEDS: SENNOSIDES SYRUP 8.8 MG/5 ML CUP PO/TUBE SCH ×2 (09:00→20:14)
[2016-07-03] MEDS: SILVER SULFADIAZINE 1% CR 400 GM JAR TOPICAL SCH (09:00)
[2016-07-03] MEDS: POTASSIUM CHLORIDE 10 MEQ CONTROLLED RELEASE TAB PO SCH (09:00)
[2016-07-03] MEDS: POLYETHYLENE GLYCOL 17 GM PKG PO SCH ×2 (09:00→20:14)
[2016-07-03] MEDS: LACTOBACILLUS ACIDOPHILUS TAB PO SCH ×3 (09:33→17:23)
[2016-07-03] MEDS: PANTOPRAZOLE SOD 40 MG DELAYED RELEASE TAB PO SCH (09:33)
[2016-07-03] MEDS: PREGABALIN 75 MG CAP PO SCH ×2 (09:33→20:12)
[2016-07-03] MEDS: BACLOFEN 10 MG TAB PO SCH (09:34)
[2016-07-03] MEDS: NYSTATIN 100,000 U/GM PWD 15 GM BTL TOPICAL SCH ×2 (09:37→20:15)
[2016-07-03] MEDS: BETAMETHASONE/CLOTRIMAZOLE CREAM 15 GM TOPICAL SCH ×2 (09:38→20:15)
[2016-07-03] MEDS: BENEPROTEIN POWDER 1 PACK G-TUBE SCH ×3 (09:42→17:22)
--- NOTE | 2016-07-03 10:34 | HHI.PR ---
Subjective Remarks resting comfortably with no distress. no new complaints. Objective Vitals Vital Signs Date Time Temp Pulse Resp B/P Pulse Ox O2 Delivery O2 Flow Rate FiO2 07/03/16 08:00 98.5 86 18 107/66 92 07/03/16 04:55 97.9 98 16 117/67 93 07/02/16 23:20 98.4 95 16 94/59 94 07/02/16 22:00 T-Piece 6.00 35 07/02/16 21:18 98.8 103 18 111/69 93 07/02/16 21:06 102 07/02/16 19:52 95 T-piece 35 07/02/16 17:02 18 07/02/16 16:00 98.5 98 24 96/53 94 07/02/16 12:38 93 T-piece 6.00 35 07/02/16 12:00 98.7 103 20 115/73 93 I/O 07/02/16 07/02/16 07/02/16 07/03/16 07/03/16 07/03/16 07:00 15:00 23:00 07:00 15:00 23:00 Intake Total 960 ml 722 ml 0 ml Output Total 250 ml 475 ml 125 ml 500 ml Balance -250 ml 485 ml 597 ml -500 ml Intake Oral 960 ml 720 ml 0 ml IV Total 2 ml Output Urine Total 250 ml 475 ml 125 ml 500 ml # Bowel Movements 1 0 0 0 Result Diagram: 07/01/16 0753 07/01/16 0753 Imaging Last Impressions Chest X-Ray 06/30/16 0600 Signed Impressions: Service Date/Time: Thursday, June 30, 2016 06:07 - CONCLUSION: No significant change. Mild bilateral perihilar and basilar consolidation again noted. Ubaldo Ortiz MD Shoulder X-Ray 06/28/16 0000 Signed Impressions: Service Date/Time: June 15:12 - CONCLUSION: 1. Limited but negative examination of the shoulder. Kyaw Rojo MD Abdomen X-Ray 06/19/16 0000 Signed Impressions: Service Date/Time: Sunday, June 19, 2016 10:43 - CONCLUSION: Gastric tube tip does not cross the diaphragm and the side port is approximately 8 cm above the diaphragm. Chano Goodwin MD Lower Extremity Ultrasound 06/04/16 0000 Signed Impressions: Service Date/Time: Saturday, June 04, 2016 14:54 - CONCLUSION: 1. No DVT identified. Dc Barton MD Liver Ultrasound 05/09/16 0000 Signed Impressions: Service Date/Time: Monday, May 09, 2016 22:28 - CONCLUSION: 1. Enlarged, fatty liver. 2. Small stones or tumefactive sludge adherent to one of the gallbladder arcos. 3. Splenomegaly. 4. Pancreas is obscured by overlying bowel gas and patient's body habitus. Arthur Kennedy MD Chest CT 03/28/16 0836 Signed Impressions: Service Date/Time: Monday, March 28, 2016 09:57 - CONCLUSION: Development areas of air bronchograms and consolidation more prominent in the right and left posterior basilar segments of the lower lobes. ET tube above the chanelle. Bernard Hartman MD CT Angiography 03/24/16 1121 Signed Impressions: Service Date/Time: Thursday, March 24, 2016 12:47 - CONCLUSION: 1. There is respiratory motion artifact but no PE is identified through most of the segmental level pulmonary arteries. 2. Mildly enlarged main pulmonary artery may indicate pulmonary arterial hypertension. 3. 11 mm left lower lobe noncalcified pulmonary nodule. Suggest correlation with any prior imaging studies that could confirm longer-term stability. If none are available consider short-term followup noncontrast chest CT in approximately 3 months. Ubaldo Rodas MD Objective Remarks GENERAL: in no apparent distress. Neck; trach in place CARDIOVASCULAR: Regular rate and regular rhythm without murmurs, gallops, or rubs. RESPIRATORY: Clear to auscultation. Breath sounds equal bilaterally. No wheezes , rales, or rhonchi. GASTROINTESTINAL: Abdomen soft, non-tender, nondistended. Normal, active bowel sounds MUSCULOSKELETAL: Extremities without clubbing, cyanosis, or edema. NEURO: Alert & Oriented x4 to person, place, time, situation. Moves all ext x4 Procedures 04/30/16 - tracheostomy by Dr. Reyes 05/03/16 - EGD with PEG placement by Dr. Faith 06/09/16 - PEG removal 06/21/16- repeat tracheostomy by Dr. Cuellar Medications and IVs Current Medications IV Flush (NS Flush) 2 ml UNSCH PRN IVF FLUSH AFTER USING IV ACCESS Last administered on 05/23/16 05:55; Start 03/24/16 at 11:30 Iohexol (Omnipaque 350 Inj) 89 ml STK-MED ONCE IV Last administered on 13:08; Start 03/24/16 at 13:08; Stop 03/24/16 at 13:09; Status DC Albuterol/ Ipratropium (Duoneb Neb) 1 ampule Q6HR NEB NEB Last administered on 04/04/16 07:42; Start 03/24/16 at 17:00; Stop 04/04/16 at 07:43; Status DC Dextrose (D50w (Vial) Inj) 25 ml UNSCH PRN IV PUSH HYPOGLYCEMIA-SEE COMMENTS; Start 03/24/16 at 16:30; Stop 03/31/16 at 11:22; Status DC Glucagon (Glucagon Inj) 1 mg UNSCH PRN OTHER HYPOGLYCEMIA-SEE COMMENTS; Start 03/24/16 at 16:30; Stop 03/31/16 at 11:22; Status DC Insulin Human Regular (NovoLIN R SUPPLEMENTAL SCALE) 1 ACHS SLIDING SCALE SQ Last administered on 03/31/16 06:09; Start 03/24/16 at 21:00; Stop 03/31/16 at 11:16; Status DC Albuterol/ Ipratropium (Duoneb Neb) 1 ampule Q2HR NEB PRN NEB WHEEZING AND SOB Last administered on 04/20/16 08:10; Start 03/24/16 at 16:45; Stop 04/23/16 at 13:22; Status DC Enoxaparin Sodium (Lovenox Inj) 40 mg Q24H SQ Last administered on 03/25/16 17 :00; Start 03/24/16 at 17:00; Stop 03/26/16 at 16:40; Status DC Pantoprazole Sodium (Protonix) 40 mg DAILY PO Last administered on 03/26/16 08 :35; Start 03/25/16 at 09:00; Stop 03/26/16 at 16:40; Status DC Influenza Virus Vaccine (Flu (Quadrivalent) Vaccine Inj) 0.5 ml ONCE ONCE IM Last administered on 03/25/16 08:57; Start 03/25/16 at 10:00; Stop 03/25/16 at 10:01; Status DC Chlorhexidine Gluconate (Chlorhexidine 2% Cloth) 3 pack DAILY@04 TOP Last administered on 03/29/16 03:42; Start 03/25/16 at 04:00; Stop 03/29/16 at 04:01 ; Status DC Chlorhexidine Gluconate (Chlorhexidine 2% Cloth) 3 pack UNSCH PRN TOP HYGIENIC CARE; Start 03/24/16 at 19:15; Stop 03/29/16 at 19:07; Status DC Tiotropium [place] (Spiriva Inh) 18 mcg DAILY INH Last administered on 08:36; Start 03/25/16 at 13:45; Stop 05/05/16 at 13:25; Status DC Metformin HCl (Glucophage) 500 mg BIDPC PO Last administered on 03/28/16 08:18 ; Start 03/26/16 at 09:00; Stop 04/07/16 at 10:16; Status DC Betamethasone/ Clotrimazole (Lotrisone Cream) 1 applic Q12HR TOPICAL Last administered on 07/03/16 09:38; Start 03/26/16 at 09:00 Methylprednisolone Sodium Succinate 60 mg 60 mg Q12HR IV PUSH Last administered on 03/28/16 08:17; Start 03/26/16 at 13:30; Stop 03/28/16 at 10:25 ; Status DC Propofol (Diprivan 1000 Mg/100ml Inj) 100 ml @ As Directed STK-MED ONCE .ROUTE ; Start 03/26/16 at 13:16; Stop 03/26/16 at 13:17; Status DC Etomidate 40 mg 40 mg STK-MED ONCE .ROUTE ; Start 03/26/16 at 13:20; Stop at 13:21; Status DC Propofol 100 ml @ 0 mls/hr TITRATE IV Last administered on 04/15/16 06:35; Start 03/26/16 at 14:30; Stop 05/02/16 at 08:34; Status DC Fentanyl Citrate (fentaNYL DRIP) 250 ml @ 0 mls/hr TITRATE IV Last administered on 05/02/16 15:59; Start 03/26/16 at 14:30; Stop 05/02/16 at 19:46; Status DC Rocuronium [place] (Zemuron Inj) 50 mg STK-MED ONCE .ROUTE ; Start 03/26/16 at 15:38; Stop 03/26/16 at 15:39; Status DC Rocuronium [place] (Zemuron Inj) 50 mg STK-MED ONCE .ROUTE ; Start 03/26/16 at 15:40; Stop 03/26/16 at 15:41; Status DC Furosemide (Lasix Inj) 40 mg ONCE ONCE IV PUSH Last administered on 03/26/16 18:00; Start 03/26/16 at 16:45; Stop 03/26/16 at 17:08; Status DC Furosemide (Lasix Inj) 20 mg BID@09,18 IV PUSH Last administered on 03/29/16 08:06; Start 03/26/16 at 18:00; Stop 03/29/16 at 08:43; Status DC Pantoprazole Sodium (Protonix Inj) 40 mg Q24H IV PUSH Last administered on 05/24 18:00; Start 03/26/16 at 18:00; Stop 05/25/16 at 12:09; Status DC Enoxaparin Sodium 40 mg 40 mg Q12H SQ Last administered on 07/03/16 05:19; Start 03/26/16 at 18:00 Aztreonam 2000 mg/ Sodium Chloride 100 ml @ 200 mls/hr Q8H IV Last administered on 03/31/16 10:23; Start 03/26/16 at 18:00; Stop 03/31/16 at 13:55 ; Status DC Potassium Chloride 100 ml @ 50 mls/hr Q2H PRN IV For Potassium 2.8 - 3.2 mEq/ L Last administered on 05/03/16 23:31; Start 03/26/16 at 16:45; Stop 05/17/16 at 17:12; Status DC Potassium Chloride (KCl 20 Meq Premix Inj) 100 ml @ 50 mls/hr Q2H PRN IV For Potassium 2.8 - 3.2 mEq/L Last administered on 05/07/16 23:26; Start 03/26/16 at 16:45; Stop 05/17/16 at 17:12; Status DC Potassium Chloride 40 meq 40 meq UNSCH PRN PO/TUBE For Potassium 3.3 - 3.5 mEq/ L Last administered on 05/17/16 09:28; Start 03/26/16 at 16:45; Stop 05/17/16 at 17:12; Status DC Potassium Chloride 100 ml @ 25 mls/hr UNSCH PRN IV For Potassium 3.3 - 3.5 mEq /L Last administered on 04/20/16 09:17; Start 03/26/16 at 16:45; Stop 05/17/16 at 17:12; Status DC Potassium Chloride 100 ml @ 50 mls/hr Q2H PRN IV For Potassium 3.3 - 3.5 mEq/ L Last administered on 05/08/16 11:22; Start 03/26/16 at 16:45; Stop 05/17/16 at 17:12; Status DC Magnesium Sulfate/ Sodium Chloride (Magnesium Sulfate Inj/NS Inj) 100 ml @ 50 mls/hr UNSCH PRN IV For Magnesium 0.9 - 1.1 mg/dL; Start 03/26/16 at 16:45; Stop 05/17/16 at 17:12; Status DC Magnesium Oxide 800 mg 800 mg UNSCH PRN PO For Magnesium 1.2 - 1.6 mg/dL; Start 03/26/16 at 16:45; Stop 05/17/16 at 17:12; Status DC Magnesium Sulfate/ Sodium Chloride (Magnesium Sulfate Inj/NS Inj) 100 ml @ 50 mls/hr UNSCH PRN IV For Magnesium 1.2 - 1.6 mg/dL; Start 03/26/16 at 16:45; Stop 05/17/16 at 17:12; Status DC Potassium Phosphate 2000 mg 2,000 mg Q4H PRN PO For Phosphorus < 2.5 mg/dL Last administered on 04/01/16 05:08; Start 03/26/16 at 16:45; Stop 05/17/16 at 17:12; Status DC Sodium Phosphate/ Sodium Chloride (Sodium Phosphate Inj/NS 250 ml Inj) 250 ml @ 42 mls/hr UNSCH PRN IV For Phosphorus < 2.5 mg/dL Last administered on 14:19; Start 03/26/16 at 16:45; Stop 05/17/16 at 17:12; Status DC Potassium Chloride (KCl 40 Meq/30 ml Liq) 40 meq UNSCH PRN PO/TUBE SEE LABEL COMMENTS; Start 03/26/16 at 16:45; Stop 05/17/16 at 17:12; Status DC Potassium Phosphate 2000 mg 2,000 mg UNSCH PRN PO/TUBE SEE LABEL COMMENTS; Start 03/26/16 at 16:45; Stop 05/17/16 at 17:12; Status DC Potassium Phosphate/Sodium Chloride (Potassium Phosphate Inj/NS 250 ml Inj) 260 ml @ 42 mls/hr UNSCH PRN IV SEE LABEL COMMENTS Last administered on 05/03/16 08:23; Start 03/26/16 at 16:45; Stop 05/17/16 at 17:12; Status DC Potassium Chloride 40 meq 40 meq DAILY PO Last administered on 04/01/16 09:18 ; Start 03/26/16 at 18:00; Stop 04/02/16 at 07:20; Status DC Metronidazole (Flagyl 500 Mg Inj) 100 ml @ 100 mls/hr Q8H IV Last administered on 04/10/16 07:44; Start 03/27/16 at 08:00; Stop 04/10/16 at 13:30; Status DC Protein 1 pack 1 pack TID G-TUBE Last administered on 07/03/16 09:42; Start at 09:00 Vancomycin HCl 1500 mg/Sodium Chloride 515 ml @ 257.5 mls/ hr ONCE ONCE IV Last administered on 03/27/16 10:21; Start 03/27/16 at 09:00; Stop 03/27/16 at 10:59; Status DC Pharmacy Profile Note 0 ml @ 0 mls/hr UNSCH OTHER ; Start 03/27/16 at 08:00; Stop 03/31/16 at 13:55; Status DC Vancomycin HCl/ Sodium Chloride (Vancomycin Inj/ NS 500 ml Inj) 520 ml @ 260 mls/hr Q24H IV Last administered on 03/30/16 04:04; Start 03/28/16 at 04:00; Stop 03/30/16 at 11:11; Status DC Miscellaneous Information SPECIFIC LAB TO BE ISHAAN... ONCE ONCE XX Last administered on 03/30/16 03:45; Start 03/30/16 at 03:45; Stop 03/30/16 at 03:46 ; Status DC Insulin Detemir 5 units 5 units Q12HR SQ Last administered on 03/31/16 21:17; Start 03/28/16 at 11:00; Stop 04/01/16 at 08:57; Status DC Pharmacy Profile Note (Vancomycin Consult Pharmacy) 0 ml @ 0 mls/hr UNSCH OTHER ; Start 03/28/16 at 10:15; Status UNV Methylprednisolone Sodium Succinate (SoluMEDROL INJ) 40 mg Q12HR IV PUSH Last administered on 04/17/16 07:26; Start 03/28/16 at 21:00; Stop 04/17/16 at 09:03 ; Status DC Docusate Sodium (Colace Liq) 100 mg Q12HR PO Last administered on 06/29/16 08: 14; Start 03/29/16 at 09:00 Sennosides (Senna Liq) 8.8 mg DAILY PO Last administered on 03/31/16 08:40; Start 03/29/16 at 09:00; Stop 04/01/16 at 08:57; Status DC Furosemide (Lasix Inj) 40 mg BID@09,18 IV PUSH ; Start 03/29/16 at 18:00; Stop 03/29/16 at 18:00; Status DC Furosemide 40 mg 40 mg BID@09,18 IV PUSH Last administered on 04/01/16 17:37; Start 03/29/16 at 09:00; Stop 04/02/16 at 07:14; Status DC Vancomycin HCl/ Sodium Chloride (Vancomycin Inj/ NS 500 ml Inj) 517.5 ml @ 250 mls/hr Q12H IV Last administered on 03/31/16 03:19; Start 03/30/16 at 16:00; Stop 03/31/16 at 13:55; Status DC Miscellaneous Information SPECIFIC LAB TO BE ISHAAN... ONCE ONCE XX Last administered on 03/31/16 15:41; Start 03/31/16 at 15:45; Stop 03/31/16 at 15:46 ; Status DC Acetaminophen (Tylenol 650 Mg/ 20 ml Liq) 650 mg Q6H PRN PO fever or pain 1-5 Last administered on 06/23/16 21:37; Start 03/30/16 at 15:45 Bumetanide (Bumex Inj) 1 mg ONCE ONCE IV PUSH ; Start 03/31/16 at 09:30; Stop 03/31/16 at 10:40; Status DC Dextrose (D50w (Vial) Inj) 25 ml UNSCH PRN IV PUSH HYPOGLYCEMIA-SEE COMMENTS; Start 03/31/16 at 11:15; Stop 04/03/16 at 17:53; Status DC Glucagon (Glucagon Inj) 1 mg UNSCH PRN OTHER HYPOGLYCEMIA-SEE COMMENTS; Start 03/31/16 at 11:15; Stop 04/07/16 at 10:46; Status DC Insulin Human Regular 1 1 Q6H SQ Last administered on 04/03/16 17:48; Start at 12:00; Stop 04/03/16 at 17:54; Status DC Levofloxacin/ Dextrose 150 ml @ 100 mls/hr Q24H IV Last administered on 14:07; Start 03/31/16 at 14:00; Stop 04/16/16 at 09:51; Status DC Fluconazole/ Sodium Chloride 200 ml @ 100 mls/hr Q24H IV Last administered on 04/09/16 15:48; Start 03/31/16 at 16:00; Stop 04/10/16 at 13:31; Status DC Linezolid 300 ml @ 300 mls/hr Q12H IV Last administered on 04/04/16 02:45; Start 03/31/16 at 15:00; Stop 04/04/16 at 09:59; Status DC Cisatracurium Besylate 100 mg/ Sodium Chloride 250 ml @ 0 mls/hr TITRATE IV Last administered on 04/14/16 11:39; Start 04/01/16 at 09:00; Stop 04/15/16 at 09:02; Status DC Epoprostenol Sodium/Sodium Chloride (Flolan (30,000 Ng/ml) Neb/NS Inj) 100 ml @ 8 mls/hr Q8H NEB Last administered on 04/15/16 02:32; Start 04/01/16 at 10:00 ; Stop 04/15/16 at 09:02; Status DC Insulin Detemir (Levemir Inj) 15 units Q12HR SQ Last administered on 04/01/16 20:13; Start 04/01/16 at 09:00; Stop 04/02/16 at 07:14; Status DC Sennosides (Senna Liq) 8.8 mg BID PO/TUBE Last administered on 06/26/16 09:07 ; Start 04/01/16 at 09:00 Polyethylene Glycol (Miralax) 17 gm BID PO Last administered on 04/03/16 21:14 ; Start 04/01/16 at 09:00; Stop 04/23/16 at 13:31; Status DC Lactulose (Lactulose Liq) 30 ml QID PO Last administered on 04/01/16 20:13; Start 04/01/16 at 09:00; Stop 04/02/16 at 07:14; Status DC Methylnaltrexone [place] (Relistor Inj) 12 mg ONCE ONCE SQ Last administered on 04/01/16 11:44; Start 04/01/16 at 10:30; Stop 04/01/16 at 10:31; Status DC Metoclopramide HCl (Reglan Inj) 5 mg Q8HR IV PUSH Last administered on 05:42; Start 04/01/16 at 14:00; Stop 04/11/16 at 09:15; Status DC Glycerin (Glycerin Adult Supp) 2 gm BID PRN RECTAL CONSTIPATION Last administered on 04/25/16 10:22; Start 04/01/16 at 09:00 Glycerin (Glycerin Adult Supp) 2 gm ONCE ONCE RECTAL Last administered on 04/01 10:52; Start 04/01/16 at 09:30; Stop 04/01/16 at 09:31; Status DC Mineral Oil (Mineral Oil Liq) 15 ml ONCE ONCE PO Last administered on 10:00; Start 04/01/16 at 10:00; Stop 04/01/16 at 10:01; Status DC Chlorhexidine Gluconate 15 ml 15 ml BID@08,20 MT Last administered on 07/02/16 20:00; Start 04/01/16 at 20:00 Midazolam HCl 100 ml @ 0 mls/hr TITRATE IV Last administered on 05/01/16 14:25 ; Start 04/01/16 at 11:45; Stop 05/02/16 at 08:35; Status DC Norepinephrine Bitartrate (Levophed-Dextrose Drip) 250 ml @ 0 mls/hr TITRATE IV Last administered on 04/01/16 21:15; Start 04/01/16 at 20:30; Stop 04/07/16 at 10:10; Status DC Furosemide (Lasix Inj) 20 mg BID@09,18 IV PUSH Last administered on 04/03/16 08:17; Start 04/02/16 at 09:00; Stop 04/03/16 at 12:58; Status DC Insulin Detemir (Levemir Inj) 25 units Q12HR SQ Last administered on 04/03/16 08:17; Start 04/02/16 at 09:00; Stop 04/03/16 at 12:48; Status DC IV Flush (NS Flush) DAILY IVF Last administered on 07/02/16 08:50; Start 04/03 at 09:00 IV Flush (NS Flush) UNSCH PRN IVF SEE PROTOCOL Last administered on 04/22/16 07:42; Start 04/02/16 at 09:30 Artificial Tears (Lacrilube Opht Oint) 1 applic Q12HR EACH EYE Last administered on 06/02/16 08:46; Start 04/02/16 at 12:00; Stop 06/02/16 at 14:00; Status DC Lactobacillus Acidophilus (Lactinex) 1 tab TID PO Last administered on 09:33; Start 04/03/16 at 13:00 Insulin Detemir (Levemir Inj) 40 units Q12HR SQ ; Start 04/03/16 at 21:00; Stop 04/03/16 at 21:00; Status DC Insulin Human NPH 15 units 15 units ONCE ONCE SQ Last administered on 13:08; Start 04/03/16 at 13:00; Stop 04/03/16 at 13:01; Status DC Sodium Chloride (NS 1000 ml Inj) 1,000 ml @ 999 mls/hr BOLUS ONCE IV Last administered on 04/03/16 13:10; Start 04/03/16 at 13:00; Stop 04/03/16 at 14:00 ; Status DC Sodium Polystyrene Sulfonate 15 gm 15 gm ONCE ONCE PO Last administered on 13:22; Start 04/03/16 at 13:00; Stop 04/03/16 at 13:08; Status DC Insulin Human Regular/Sodium Chloride (NovoLIN R (IV INFUSION)/NS Inj) 100 ml @ 0 mls/hr TITRATE IV Last administered on 04/03/16 22:44; Start 04/03/16 at 18: 00; Stop 04/04/16 at 09:12; Status DC Dextrose (D50w (Vial) Inj) 25 ml UNSCH PRN IV PUSH SEE LABEL COMMENTS; Start at 17:45; Stop 04/04/16 at 09:14; Status DC Miscellaneous Information 1 ONCE ONCE XX Last administered on 04/03/16 20:27 ; Start 04/03/16 at 17:45; Stop 04/03/16 at 17:52; Status DC Albuterol/ Ipratropium (Duoneb Neb) 1 ampule Q4HR NEB NEB Last administered on 04/08/16 03:48; Start 04/04/16 at 08:00; Stop 04/08/16 at 08:00; Status DC Furosemide 20 mg 20 mg BID@09,18 IV PUSH Last administered on 04/15/16 08:12; Start 04/04/16 at 09:00; Stop 04/15/16 at 09:53; Status DC Insulin Human Regular/Sodium Chloride (NovoLIN R (IV INFUSION)/NS Inj) 100 ml @ 0 mls/hr TITRATE IV Last administered on 04/07/16 04:33; Start 04/04/16 at 09:00 ; Stop 04/07/16 at 10:11; Status DC Dextrose (D50w (Vial) Inj) 25 ml UNSCH PRN IV PUSH SEE LABEL COMMENTS; Start at 09:00; Stop 04/07/16 at 10:46; Status DC Miscellaneous Information 1 ONCE ONCE XX Last administered on 04/04/16 10:00; Start 04/04/16 at 10:00; Stop 04/04/16 at 10:01; Status DC Insulin Detemir (Levemir Inj) 60 units Q12HR SQ Last administered on 04/07/16 07:41; Start 04/05/16 at 11:00; Stop 04/08/16 at 08:14; Status DC Dextrose (D50w (Vial) Inj) 25 ml UNSCH PRN IV PUSH HYPOGLYCEMIA-SEE COMMENTS; Start 04/07/16 at 10:15; Stop 04/07/16 at 17:03; Status DC Glucagon (Glucagon Inj) 1 mg UNSCH PRN OTHER HYPOGLYCEMIA-SEE COMMENTS; Start 04/07/16 at 10:15; Stop 04/07/16 at 17:03; Status DC Insulin Human Regular (NovoLIN R SUPPLEMENTAL SCALE) 1 Q6H SQ Last administered on 04/07/16 10:56; Start 04/07/16 at 11:00; Stop 04/07/16 at 17:01; Status DC Insulin Detemir (Levemir Inj) 20 units Q12HR SQ Last administered on 04/08/16 07:26; Start 04/07/16 at 21:00; Stop 04/08/16 at 08:14; Status DC Dextrose (D50w (Vial) Inj) 25 ml UNSCH PRN IV PUSH HYPOGLYCEMIA-SEE COMMENTS; Start 04/07/16 at 17:00; Stop 05/13/16 at 13:50; Status DC Glucagon (Glucagon Inj) 1 mg UNSCH PRN OTHER HYPOGLYCEMIA-SEE COMMENTS; Start 04/07/16 at 17:00; Stop 05/13/16 at 13:50; Status DC Insulin Human Regular (NovoLIN R SUPPLEMENTAL SCALE) 1 Q6H SQ Last administered on 05/11/16 17:08; Start 04/07/16 at 18:00; Stop 05/13/16 at 13:50 ; Status DC Insulin Detemir 24 units 24 units Q12HR SQ Last administered on 04/09/16 07:37 ; Start 04/08/16 at 21:00; Stop 04/09/16 at 10:01; Status DC Vancomycin HCl 1750 mg/Sodium Chloride 517.5 ml @ 258.75 mls/ hr ONCE ONCE IV Last administered on 04/08/16 14:42; Start 04/08/16 at 13:00; Stop 04/08/16 at 14:59; Status DC Sodium Chloride (NS 500 ml Inj) 500 ml @ 500 mls/hr BOLUS ONCE IV Last administered on 04/08/16 17:20; Start 04/08/16 at 17:15; Stop 04/08/16 at 18:14; Status DC Insulin Detemir 30 units 30 units Q12HR SQ Last administered on 04/10/16 08:29 ; Start 04/09/16 at 21:00; Stop 04/10/16 at 10:25; Status DC Pharmacy Profile Note 0 ml @ 0 mls/hr UNSCH OTHER ; Start 04/09/16 at 10:30; Stop 04/12/16 at 13:55; Status DC Vancomycin HCl/ Sodium Chloride (Vancomycin Inj/ NS 500 ml Inj) 515 ml @ 257.5 mls/ hr Q12H IV Last administered on 04/10/16 11:16; Start 04/09/16 at 12:00; Stop 04/10/16 at 13:51; Status DC Miscellaneous Information SPECIFIC LAB TO BE DRAWN:[facility]... ONCE ONCE XX ; Start 04/10/16 at 11:45; Stop 04/10/16 at 11:46; Status DC Insulin Detemir 35 units 35 units Q12HR SQ Last administered on 04/11/16 08:07 ; Start 04/10/16 at 21:00; Stop 04/11/16 at 09:15; Status DC Vancomycin HCl/ Sodium Chloride (Vancomycin Inj/ NS 500 ml Inj) 520 ml @ 260 mls/hr Q12H IV Last administered on 04/12/16 08:14; Start 04/10/16 at 20:00; Stop 04/12/16 at 13:55; Status DC Miscellaneous Information SPECIFIC LAB TO BE ISHAAN... ONCE ONCE XX Last administered on 04/12/16 07:45; Start 04/12/16 at 07:45; Stop 04/12/16 at 07:46; Status DC Insulin Detemir (Levemir Inj) 45 units Q12HR SQ Last administered on 04/23/16 08:29; Start 04/11/16 at 21:00; Stop 04/23/16 at 13:24; Status DC Metoclopramide HCl 10 mg 10 mg Q8HR IV PUSH Last administered on 05/25/16 06: 05; Start 04/11/16 at 14:00; Stop 05/25/16 at 12:09; Status DC Sodium Chloride (NS 1000 ml Inj) 2,000 ml @ 0 mls/hr NOW ONCE IV Last administered on 04/11/16 21:01; Start 04/11/16 at 21:00; Stop 04/11/16 at 21:01; Status DC Miscellaneous Information SPECIFIC LAB TO BE DRAWN:VANCOMYCIN TROUGH DATE TO... ONCE ONCE XX ; Start 04/13/16 at 19:45; Stop 04/13/16 at 19:46; Status Cancel Furosemide 20 mg 20 mg Q6H IV PUSH Last administered on 04/16/16 08:40; Start 04/12/16 at 15:00; Stop 04/16/16 at 09:25; Status DC Epoprostenol Sodium 30 ml/ Sodium Chloride 67.5 ml @ 8 mls/hr Q8H NEB ; Start 04/15/16 at 10:00; Stop 04/15/16 at 10:00; Status DC Epoprostenol Sodium/Sodium Chloride (Flolan (30,000 Ng/ml) Neb/NS Inj) 100 ml @ 8 mls/hr Q8H NEB Last administered on 04/18/16 02:09; Start 04/15/16 at 10:00 ; Stop 04/18/16 at 10:15; Status DC Furosemide (Lasix Inj) 20 mg Q8H IV PUSH Last administered on 04/23/16 08:31; Start 04/16/16 at 17:00; Stop 04/23/16 at 13:44; Status DC Methylprednisolone Sodium Succinate 40 mg 40 mg DAILY IV PUSH Last administered on 05/02/16 08:11; Start 04/18/16 at 09:00; Stop 05/02/16 at 08:39; Status DC Epoprostenol Sodium 25 ml/ Sodium Chloride 100 ml @ 8 mls/hr Q8H NEB Last administered on 04/19/16 13:12; Start 04/18/16 at 15:00; Stop 04/19/16 at 15:59 ; Status DC Vancomycin HCl 1500 mg/Sodium Chloride 515 ml @ 257.5 mls/ hr ONCE ONCE IV Last administered on 04/19/16 13:45; Start 04/19/16 at 13:00; Stop 04/19/16 at 14:59; Status DC Epoprostenol Sodium 12.5 ml/ Sodium Chloride 100 ml @ 8 mls/hr Q8H NEB Last administered on 04/20/16 00:29; Start 04/19/16 at 16:00; Stop 04/20/16 at 15:11 ; Status DC Pharmacy Profile Note 0 ml @ 0 mls/hr UNSCH OTHER ; Start 04/20/16 at 14:15; Stop 04/29/16 at 10:33; Status DC Vancomycin HCl/ Sodium Chloride (Vancomycin Inj/ NS 500 ml Inj) 520 ml @ 250 mls/hr Q12H IV Last administered on 04/24/16 05:53; Start 04/20/16 at 18:00; Stop 04/24/16 at 09:15; Status DC Miscellaneous Information SPECIFIC LAB TO BE DRAWN:VANCO TROUGH DATE TO... ONCE ONCE XX Last administered on 04/22/16 05:45; Start 04/22/16 at 05:45; Stop 04/22/16 at 05:46; Status DC Potassium Bicarb/ Potassium Chloride (K-Lyte Cl Eff) 25 meq Q12HR PO Last administered on 04/28/16 07:49; Start 04/21/16 at 21:00; Stop 05/27/16 at 08:44 ; Status DC Artificial Tears (Tears Naturale Opth Soln) 1 drop Q4H EACH EYE Last administered on 07/03/16 05:29; Start 04/21/16 at 18:00 Water (Free Water) 200 ml Q6HR G-TUBE Last administered on 04/30/16 12:00; Start 04/22/16 at 18:00; Stop 05/01/16 at 17:19; Status DC Albuterol/ Ipratropium (Duoneb Neb) 1 ampule Q6HR NEB NEB Last administered on 04/27/16 08:03; Start 04/23/16 at 16:00; Stop 04/27/16 at 16:00; Status DC Albuterol/ Ipratropium (Duoneb Neb) 1 ampule Q2HR NEB PRN NEB [id number] Last administered on 05/11/16 15:54; Start 04/23/16 at 13:15; Stop 05/17/16 at 20:14 ; Status DC Insulin Detemir (Levemir Inj) 55 units Q12HR SQ Last administered on 04/24/16 08:34; Start 04/23/16 at 21:00; Stop 04/24/16 at 12:17; Status DC Polyethylene Glycol (Miralax) 17 gm BID PO Last administered on 07/01/16 20:31 ; Start 04/24/16 at 09:00 Furosemide 20 mg 20 mg BID IV PUSH Last administered on 04/28/16 07:50; Start 04/23/16 at 21:00; Stop 04/28/16 at 11:08; Status DC Vancomycin HCl/ Sodium Chloride (Vancomycin Inj/ NS 500 ml Inj) 515 ml @ 257.5 mls/ hr Q12H IV Last administered on 04/28/16 11:59; Start 04/24/16 at 23:00; Stop 04/28/16 at 14:04; Status DC Miscellaneous Information SPECIFIC LAB TO BE .. ONCE ONCE XX Last administered on 04/25/16 22:45; Start 04/25/16 at 22:45; Stop 04/25/16 at 22:46 ; Status DC Insulin Detemir (Levemir Inj) 65 units Q12HR SQ Last administered on 04/25/16 09:00; Start 04/24/16 at 21:00; Stop 04/25/16 at 15:10; Status DC Polyethylene Glycol (Miralax) 17 gm ONCE ONCE PO Last administered on 16:21; Start 04/25/16 at 15:15; Stop 04/25/16 at 15:16; Status DC Polyethylene Glycol (Miralax) 17 gm DAILY PO ; Start 04/26/16 at 09:00; Stop at 11:33; Status DC Mineral Oil (Mineral Oil Liq) 15 ml ONCE ONCE PO Last administered on 16:21; Start 04/25/16 at 16:00; Stop 04/25/16 at 16:01; Status DC Potassium Chloride (KCl 40 Meq/30 ml Liq) 40 meq ONCE ONCE PO Last administered on 04/25/16 16:21; Start 04/25/16 at 15:15; Stop 04/25/16 at 15:16 ; Status DC Insulin Detemir (Levemir Inj) 75 units Q12HR SQ Last administered on 04/26/16 09:13; Start 04/25/16 at 21:00; Stop 04/26/16 at 14:43; Status DC Methylnaltrexone [place] (Relistor Inj) 12 mg ONCE ONCE SQ Last administered on 04/25/16 16:22; Start 04/25/16 at 16:00; Stop 04/25/16 at 16:01; Status DC Miscellaneous Information SPECIFIC LAB TO BE DRAWN:VANCO TROUGH DATE TO BE .. ONCE ONCE XX Last administered on 04/28/16 10:45; Start 04/28/16 at 10: 45; Stop 04/28/16 at 10:46; Status DC Methylnaltrexone [place] (Relistor Inj) 12 mg ONCE ONCE SQ Last administered on 04/26/16 15:18; Start 04/26/16 at 14:30; Stop 04/26/16 at 14:56; Status DC Lactulose (Lactulose Liq) 30 ml QID PO Last administered on 04/28/16 07:47; Start 04/26/16 at 18:00; Stop 05/27/16 at 08:44; Status DC Mineral Oil (Mineral Oil Liq) 15 ml ONCE ONCE PO Last administered on 15:19; Start 04/26/16 at 14:30; Stop 04/26/16 at 14:56; Status DC Sennosides (Senna Liq) 8.8 mg ONCE ONCE PO Last administered on 04/26/16 15: 25; Start 04/26/16 at 14:30; Stop 04/26/16 at 14:56; Status DC Magnesium Citrate (Citroma Liq) 300 ml ONCE ONCE PO Last administered on 15:25; Start 04/26/16 at 14:45; Stop 04/26/16 at 14:56; Status DC Potassium Chloride (KCl 40 Meq/30 ml Liq) 40 meq ONCE ONCE PO Last administered on 04/26/16 15:25; Start 04/26/16 at 14:45; Stop 04/26/16 at 14:56 ; Status DC Insulin Detemir (Levemir Inj) 80 units Q12HR SQ Last administered on 04/28/16 07:49; Start 04/26/16 at 21:00; Stop 04/28/16 at 11:19; Status DC Nystatin 1 applic 1 applic Q12HR TOPICAL Last administered on 07/03/16 09:37; Start 04/27/16 at 11:00 Aztreonam/Sodium Chloride (Azactam Inj/NS Inj) 100 ml @ 200 mls/hr Q8H IV Last administered on 04/29/16 02:39; Start 04/27/16 at 10:00; Stop 04/29/16 at 10:34; Status DC Potassium Chloride (KCl 40 Meq/30 ml Liq) 40 meq ONCE ONCE PO Last administered on 04/27/16 13:00; Start 04/27/16 at 13:00; Stop 04/27/16 at 13:02 ; Status DC Albuterol/ Ipratropium (Duoneb Neb) 1 ampule Q4HR NEB NEB Last administered on 05/02/16 07:53; Start 04/28/16 at 12:00; Stop 05/02/16 at 12:00; Status DC Sodium Chloride 2 ml 2 ml Q8HR NEB NEB Last administered on 05/01/16 07:21; Start 04/28/16 at 16:00; Stop 05/01/16 at 15:59; Status DC Sodium Chloride/ Sterile Water (Sodium Chloride 23.4% Inj/Sterile Water For Inj ) 1,009.625 ml @ 84 mls/hr Q12H2M IV Last administered on 04/28/16 13:23; Start 04/28/16 at 13:00; Stop 04/29/16 at 01:01; Status DC Insulin Detemir 70 units 70 units Q12HR SQ Last administered on 05/03/16 08:08 ; Start 04/28/16 at 21:00; Stop 05/05/16 at 17:18; Status DC Vancomycin HCl/ Sodium Chloride (Vancomycin Inj/ NS 250 ml Inj) 262.5 ml @ 250 mls/hr Q12H IV Last administered on 04/29/16 00:18; Start 04/28/16 at 23:00; Stop 04/29/16 at 10:34; Status DC Miscellaneous Information SPECIFIC LAB TO BE ISHAAN... ONCE ONCE XX ; Start at 10:45; Stop 04/30/16 at 10:45; Status DC Clindamycin Phosphate/Sodium Chloride (Cleocin Inj/NS Inj) 104 ml @ 208 mls/hr Q8H IV Last administered on 05/06/16 15:52; Start 04/29/16 at 12:00; Stop at 12:00; Status DC Lidocaine/ Epinephrine (Xylocaine-Epi 1%-1:100,000 Inj) 30 ml STK-MED ONCE .ROUTE ; Start 04/30/16 at 13:00; Stop 04/30/16 at 13:01; Status DC Fentanyl Citrate 250 mcg 250 mcg STK-MED ONCE .ROUTE ; Start 04/30/16 at 15:28; Stop 04/30/16 at 15:29; Status DC Dexmedetomidine HCl (Precedex Inj) 50 ml @ 0 mls/hr TITRATE IV Last administered on 05/02/16 18:32; Start 05/01/16 at 17:00; Stop 05/02/16 at 19:00; Status DC Water (Free Water) 100 ml Q6HR G-TUBE Last administered on 06/09/16 12:00; Start 05/01/16 at 18:00; Stop 06/10/16 at 15:51; Status DC Fentanyl (Duragesic 25 Mcg Patch.72 Hr) 1 patch Q3D TD Last administered on 09:05; Start 05/02/16 at 09:00; Stop 06/19/16 at 08:05; Status DC Miscellaneous Information 1 Q3D T-DERMAL Last administered on 06/13/16 08:23; Start 05/05/16 at 09:00; Stop 06/19/16 at 08:05; Status DC Oxycodone HCl (Roxicodone Intensol Liq) 5 mg Q6H PRN PO PAIN SCALE 7 TO 10 Last administered on 05/23/16 05:54; Start 05/02/16 at 08:45; Stop 06/05/16 at 22 :00; Status DC Acetaminophen/ Hydrocodone Bitart ([place] 5-325 Mg) 1 tab Q6H PO Last administered on 05/06/16 15:52; Start 05/02/16 at 09:00; Stop 05/06/16 at 18:52; Status DC Methylprednisolone Sodium Succinate (SoluMEDROL INJ) 30 mg DAILY IV PUSH Last administered on 05/04/16 07:55; Start 05/03/16 at 09:00; Stop 05/04/16 at 10:09; Status DC Midazolam HCl (Versed Inj) 5 mg STK-MED ONCE .ROUTE Last administered on 16:18; Start 05/02/16 at 16:14; Stop 05/02/16 at 16:15; Status DC Lorazepam (Ativan Inj) 2 mg STK-MED ONCE .ROUTE Last administered on 05/02/16 16:19; Start 05/02/16 at 16:15; Stop 05/02/16 at 16:16; Status DC Midazolam HCl (Versed Inj) 5 mg NOW ONCE IV Last administered on 05/02/16 16: 30; Start 05/02/16 at 16:30; Stop 05/02/16 at 16:31; Status DC Lorazepam 2 mg 2 mg Q4H PRN IVP AGITATION Last administered on 06/13/16 21:22 ; Start 05/02/16 at 16:30; Stop 06/19/16 at 08:05; Status DC Dexmedetomidine HCl/Sodium Chloride (Precedex Inj/NS 250 ml Inj) 260 ml @ 0 mls/ hr TITRATE IV Last administered on 05/04/16 09:53; Start 05/02/16 at 19:01; Stop 05/04/16 at 16:31; Status DC Hydralazine HCl (Apresoline Inj) 10 mg Q4H PRN IV PUSH SBP >165 Last administered on 05/03/16 06:20; Start 05/02/16 at 22:00; Stop 06/05/16 at 20:34; Status DC Propofol (Diprivan 200 Mg/20 ml Inj) 170 mg STK-MED ONCE IV ; Start 05/03/16 at 15:06; Stop 05/03/16 at 15:07; Status DC Quetiapine Fumarate (SEROquel) 25 mg BID PO Last administered on 06/21/16 10: 58; Start 05/04/16 at 09:00; Stop 06/21/16 at 13:25; Status DC Methylprednisolone Sodium Succinate (SoluMEDROL INJ) 20 mg DAILY IV PUSH Last administered on 05/11/16 08:02; Start 05/05/16 at 09:00; Stop 05/12/16 at 09:13 ; Status DC Fentanyl Citrate (fentaNYL INJ) 50 mcg NOW ONCE IV Last administered on 01:03; Start 05/05/16 at 01:00; Stop 05/05/16 at 01:02; Status DC Metoprolol Tartrate (Lopressor Inj) 2.5 mg NOW ONCE IV PUSH Last administered on 05/05/16 04:17; Start 05/05/16 at 04:00; Stop 05/05/16 at 04:01; Status DC Ondansetron HCl (Zofran Inj) 4 mg Q6H PRN IV NAUSEA OR VOMITING; Start 05/05/16 at 06:45 Bumetanide (Bumex Inj) 0.5 mg DAILY IV PUSH Last administered on 05/24/16 09: 25; Start 05/05/16 at 09:00; Stop 05/24/16 at 10:39; Status DC Albuterol/ Ipratropium (Duoneb Neb) 1 ampule TID NEB INH Last administered on 05/09/16 13:05; Start 05/05/16 at 14:00; Stop 05/09/16 at 14:00; Status DC Insulin Detemir (Levemir Inj) 50 units Q12HR SQ Last administered on 05/11/16 20:54; Start 05/05/16 at 21:00; Stop 05/13/16 at 13:50; Status DC Acetaminophen/ Hydrocodone Bitart ([place] 5-325 Mg) 1 tab Q12HR PO Last administered on 06/18/16 19:40; Start 05/06/16 at 21:00; Stop 06/19/16 at 08:05 ; Status DC Propofol 200 mg 200 mg STK-MED ONCE IV ; Start 04/30/16 at 15:12; Stop 05/07/16 at 15:12; Status DC Parenteral Electrolytes (Normosol R Inj) 2,000 ml @ As Directed STK-MED ONCE IV ; Start 04/30/16 at 15:12; Stop 05/07/16 at 15:12; Status DC Potassium Chloride (KCl) 10 meq DAILY PO Last administered on 07/02/16 08:51; Start 05/10/16 at 09:30 Simethicone (Phazyme Chew) 125 mg DAILY PRN PO gas Last administered on 15:00; Start 05/11/16 at 15:00 Insulin Detemir (Levemir Inj) 35 units Q12HR SQ Last administered on 05/30/16 20:26; Start 05/13/16 at 21:00; Stop 06/05/16 at 22:00; Status DC Dextrose (D50w (Vial) Inj) 25 ml UNSCH PRN IV PUSH HYPOGLYCEMIA-SEE COMMENTS; Start 05/13/16 at 14:00; Stop 05/31/16 at 21:54; Status DC Glucagon (Glucagon Inj) 1 mg UNSCH PRN OTHER HYPOGLYCEMIA-SEE COMMENTS; Start 05/13/16 at 14:00; Stop 05/31/16 at 21:54; Status DC Insulin Human Regular (NovoLIN R SUPPLEMENTAL SCALE) 1 ACHS SLIDING SCALE SQ Last administered on 05/25/16 06:19; Start 05/13/16 at 16:00; Stop 05/25/16 at 12:14; Status DC Silver Sulfadiazine (Silvadene 1% Cream (400 Gm)) 1 applic DAILY TOPICAL Last administered on 07/02/16 08:51; Start 05/16/16 at 11:00 Pregabalin (Lyrica) 25 mg DAILY PO Last administered on 05/19/16 08:22; Start 05/17/16 at 11:45; Stop 05/20/16 at 10:29; Status DC Ipratropium [place] (Atrovent Neb) 0.5 mg Q2HR NEB PRN NEB wheezing Last administered on 05/27/16 00:28; Start 05/17/16 at 21:00 Diltiazem HCl (Cardizem) 30 mg ONCE ONCE PO Last administered on 05/17/16 22: 44; Start 05/17/16 at 22:45; Stop 05/17/16 at 22:46; Status DC Potassium Chloride (KCl) 40 meq ONCE ONCE PO Last administered on 05/17/16 22 :44; Start 05/17/16 at 22:45; Stop 05/17/16 at 22:46; Status DC Pregabalin (Lyrica) 50 mg DAILY PO Last administered on 06/18/16 08:33; Start 05/21/16 at 09:00; Stop 06/19/16 at 08:05; Status DC Baclofen (Lioresal) 10 mg Q12HR PO Last administered on 06/18/16 19:39; Start 05/24/16 at 10:45; Stop 06/19/16 at 08:05; Status DC Bumetanide (Bumetanide) 0.5 mg ONCE ONCE PO Last administered on 05/25/16 09: 21; Start 05/25/16 at 09:00; Stop 05/25/16 at 09:01; Status DC Miscellaneous (Pill Splitter) 1 ea UNSCH PRN OTHER SEE LABEL COMMENTS; Start at 10:45 Pantoprazole Sodium (Protonix) 40 mg DAILY PO Last administered on 07/03/16 09: 33; Start 05/26/16 at 09:00 Insulin Human Regular (NovoLIN R SUPPLEMENTAL SCALE) 1 Q12HR SQ Last administered on 05/26/16 22:40; Start 05/25/16 at 19:00; Stop 05/27/16 at 08:44 ; Status DC Metoclopramide HCl (Reglan) 10 mg Q8HR G-TUBE Last administered on 06/02/16 14: 43; Start 05/25/16 at 14:00; Stop 06/02/16 at 14:49; Status DC Albuterol Sulfate 2.5 mg 2.5 mg ONCE ONCE NEB Last administered on 05/27/16 00:45; Start 05/27/16 at 00:45; Stop 05/27/16 at 00:46; Status DC Sodium Chloride (NS 1000 ml Inj) 999 ml @ 0 mls/hr BOLUS ONCE IV Last administered on 05/27/16 02:01; Start 05/27/16 at 02:00; Stop 05/27/16 at 04:31 ; Status DC Adenosine (Adenocard Inj) 6 mg NOW ONCE IV PUSH Last administered on 02:01; Start 05/27/16 at 02:01; Stop 05/27/16 at 04:31; Status DC Adenosine (Adenocard Inj) 12 mg NOW ONCE IV PUSH Last administered on 02:11; Start 05/27/16 at 02:11; Stop 05/27/16 at 04:31; Status DC Insulin Human Regular 1 1 Q4HR SQ ; Start 05/27/16 at 12:00; Stop 05/28/16 at 01 :44; Status DC Sodium Chloride (NS 1000 ml Inj) 1,000 ml @ 100 mls/hr Q10H IV Last administered on 05/27/16 19:00; Start 05/27/16 at 09:00; Stop 05/28/16 at 04:59 ; Status DC Albuterol/ Ipratropium (Duoneb Neb) 1 ampule Q6HR NEB NEB Last administered on 05/31/16 07:29; Start 05/27/16 at 10:00; Stop 05/31/16 at 10:00; Status DC Insulin Human Regular (NovoLIN R SUPPLEMENTAL SCALE) 1 BID@07,15 SQ Last administered on 05/28/16 14:34; Start 05/28/16 at 07:00; Stop 05/31/16 at 21:53 ; Status DC Adenosine (Adenocard Inj) 6 mg STK-MED ONCE IV PUSH ; Start 05/27/16 at 05:00; Stop 05/28/16 at 12:54; Status DC Dextrose (D50w (Vial) Inj) 25 ml UNSCH PRN IV PUSH HYPOGLYCEMIA-SEE COMMENTS; Start 05/31/16 at 22:00 Glucagon (Glucagon Inj) 1 mg UNSCH PRN OTHER HYPOGLYCEMIA-SEE COMMENTS; Start 05/31/16 at 22:00; Stop 06/19/16 at 08:05; Status DC Insulin Aspart (NovoLOG SUPPLEMENTAL SCALE) 1 ACHS SLIDING SCALE SQ Last administered on 06/12/16 18:00; Start 06/01/16 at 07:00; Stop 06/22/16 at 16:52 ; Status DC Albuterol/ Ipratropium (Duoneb Neb) 1 ampule Q6HR NEB NEB Last administered on 06/06/16 08:29; Start 06/02/16 at 16:00; Stop 06/06/16 at 10:56; Status DC Albuterol/ Ipratropium (Duoneb Neb) 1 ampule Q2HR NEB PRN NEB dyspnea Last administered on 06/21/16 20:16; Start 06/02/16 at 15:00 Insulin Detemir 5 units 5 units HS SQ Last administered on 07/02/16 21:42; Start 06/06/16 at 21:00 Propofol (Diprivan 1000 Mg/100ml Inj) 100 ml @ As Directed STK-MED ONCE .ROUTE ; Start 06/12/16 at 15:40; Stop 06/12/16 at 15:41; Status DC Midazolam HCl (Versed Inj) 5 mg STK-MED ONCE .ROUTE ; Start 06/12/16 at 15:41; Stop 06/12/16 at 15:42; Status DC Chlorhexidine Gluconate 15 ml 15 ml BID@08,20 MT ; Start 06/12/16 at 20:00; Stop 06/12/16 at 20:00; Status DC Propofol 100 ml @ 0 mls/hr TITRATE IV Last administered on 06/13/16 17:09; Start 06/12/16 at 17:45; Stop 06/19/16 at 08:05; Status DC Fentanyl Citrate 250 ml @ 0 mls/hr TITRATE IV Last administered on 06/12/16 20 :08; Start 06/12/16 at 17:45; Stop 06/19/16 at 08:06; Status DC Levofloxacin/ Dextrose 150 ml @ 100 mls/hr Q24H IV Last administered on 13:05; Start 06/13/16 at 14:00; Stop 06/19/16 at 10:06; Status DC Sodium Chloride 1,000 ml @ 999 mls/hr BOLUS ONCE IV Last administered on 06/13 14:43; Start 06/13/16 at 13:30; Stop 06/13/16 at 14:30; Status DC Sodium Chloride 1,000 ml @ 999 mls/hr BOLUS ONCE IV Last administered on 06/13 14:43; Start 06/13/16 at 13:30; Stop 06/13/16 at 14:30; Status DC Potassium Chloride 10 meq/ Sodium Chloride 1,005 ml @ 75 mls/hr [id number] IV Last administered on 06/22/16 00:24; Start 06/13/16 at 15:00; Stop 06/22/16 at 18:02; Status DC Sodium Chloride 1,000 ml @ 0 mls/hr ONCE ONCE IV Last administered on 08:48; Start 06/15/16 at 07:30; Stop 06/15/16 at 07:31; Status DC Cefazolin Sodium/ Dextrose 50 ml @ 100 mls/hr Q8H IV Last administered on 06/15 12:48; Start 06/15/16 at 12:00; Stop 06/15/16 at 13:13; Status DC Vancomycin HCl 1500 mg/Sodium Chloride 515 ml @ 257.5 mls/ hr ONCE ONCE IV Last administered on 06/15/16 15:12; Start 06/15/16 at 14:00; Stop 06/15/16 at 15:59; Status DC Pharmacy Profile Note 0 ml @ 0 mls/hr UNSCH OTHER ; Start 06/15/16 at 13:00; Stop 06/19/16 at 10:06; Status DC Aztreonam 1000 mg/ Sodium Chloride 100 ml @ 200 mls/hr Q8H IV Last administered on 06/19/16 05:21; Start 06/15/16 at 13:00; Stop 06/19/16 at 10:06 ; Status DC Vancomycin HCl/ Sodium Chloride (Vancomycin Inj/ NS 500 ml Inj) 515 ml @ 257.5 mls/ hr Q12H IV Last administered on 06/17/16 02:49; Start 06/16/16 at 02:00; Stop 06/17/16 at 08:43; Status DC Miscellaneous Information SPECIFIC LAB TO BE DRAWN:VANCO TROUGH DATE TO BE DR... ONCE ONCE .XX Last administered on 06/17/16 01:45; Start 06/17/16 at 01 :45; Stop 06/17/16 at 01:46; Status DC Vancomycin HCl/ Sodium Chloride (Vancomycin Inj/ NS 500 ml Inj) 517.5 ml @ 257.5 mls/ hr Q12H IV Last administered on 06/19/16 03:33; Start 06/17/16 at 14:00; Stop 06/19/16 at 08:51; Status DC Miscellaneous Information SPECIFIC LAB TO BE DRAWN:VANCOMY... ONCE ONCE .XX Last administered on 06/19/16 02:04; Start 06/19/16 at 01:45; Stop 06/19/16 at 01:46; Status DC Miscellaneous Information D/C ICU ELECTROLYTE ORDERS... UNSCH PRN .XX SEE DOSE INSTRUCTIONS; Start 06/17/16 at 10:30; Status Cancel Miscellaneous Information ICU - CALL ORDERING PHYSIC... UNSCH PRN .XX SEE DOSE INSTRUCTIONS; Start 06/17/16 at 10:30; Status Cancel Potassium Chloride (KCl 40 Meq Premix Inj) 100 ml @ 25 mls/hr UNSCH PRN IV ELECTROLYTE REPLACEMENT Last administered on 06/17/16 17:40; Start 06/17/16 at 10:30 Potassium Bicarb/ Potassium Chloride 50 meq 50 meq UNSCH PRN PO ELECTROLYTE REPLACEMENT; Start 06/17/16 at 10:30; Status Cancel Potassium Chloride 100 ml @ 50 mls/hr UNSCH PRN IV ELECTROLYTE REPLACEMENT; Start 06/17/16 at 10:30; Status Cancel Magnesium Sulfate 4 gm/Sodium Chloride 108 ml @ 54 mls/hr UNSCH PRN IV ELECTROLYTE REPLACEMENT; Start 06/17/16 at 10:30; Status Cancel Magnesium Sulfate/ Sodium Chloride (Magnesium Sulfate Inj/NS Inj) 104 ml @ 52 mls/hr UNSCH PRN IV ELECTROLYTE REPLACEMENT; Start 06/17/16 at 10:30; Status Cancel Magnesium Oxide 800 mg 800 mg UNSCH PRN PO ELECTROLYTE REPLACEMENT; Start 06/17 at 10:30; Status Cancel Sodium Phosphate/ Sodium Chloride (Sodium Phosphate Inj/NS 250 ml Inj) 260 ml @ 43.333 mls/ hr UNSCH PRN IV ELECTROLYTE REPLACEMENT; Start 06/17/16 at 10:30 ; Status Cancel Potassium Phosphate 2000 mg 2,000 mg UNSCH PRN PO ELECTROLYTE REPLACEMENT; Start 06/17/16 at 10:30; Status Cancel Potassium Phosphate/Sodium Chloride (Potassium Phosphate Inj/NS 250 ml Inj) 260 ml @ 43.333 mls/ hr UNSCH PRN IV ELECTROLYTE REPLACEMENT; Start 06/17/16 at 10 :30; Status Cancel Baclofen (Lioresal) 5 mg Q12HR PO Last administered on 06/21/16 10:58; Start 06/19/16 at 09:00; Stop 06/21/16 at 13:25; Status DC Pregabalin (Lyrica) 150 mg DAILY PO Last administered on 06/21/16 10:58; Start 06/19/16 at 09:00; Stop 06/21/16 at 13:25; Status DC Tizanidine HCl (Zanaflex) 2 mg Q12HR PO Last administered on 06/21/16 10:58; Start 06/19/16 at 09:00; Stop 06/21/16 at 13:25; Status DC Oxycodone HCl 2.5 mg 2.5 mg Q6H PRN PO pain 1-7 Last administered on 06/24/16 13:00; Start 06/19/16 at 08:15; Stop 06/24/16 at 16:18; Status DC Vancomycin HCl/ Sodium Chloride (Vancomycin Inj/ NS 500 ml Inj) 520 ml @ 257.5 mls/ hr Q12H IV ; Start 06/19/16 at 14:00; Stop 06/19/16 at 14:00; Status DC Miscellaneous Information SPECIFIC LAB TO BE DRAWN:VANCOMYCIN TROUGH DATE TO... ONCE ONCE .XX ; Start 06/21/16 at 01:45; Stop 06/21/16 at 01:45; Status DC Cefepime HCl 2000 mg/Sodium Chloride 100 ml @ 200 mls/hr Q12H IV Last administered on 06/26/16 00:00; Start 06/19/16 at 12:00; Stop 06/26/16 at 10:31 ; Status DC Norepinephrine Bitartrate 250 ml @ As Directed STK-MED ONCE IV Last administered on 06/19/16 16:09; Start 06/19/16 at 13:51; Stop 06/19/16 at 13:52 ; Status DC Sodium Chloride 1,000 ml @ 0 mls/hr BOLUS STAT IV ; Start 06/19/16 at 17:58; Stop 06/19/16 at 17:59; Status DC Fluconazole/ Sodium Chloride 200 ml @ 100 mls/hr Q24H IV Last administered on 06/22/16 09:12; Start 06/20/16 at 11:00; Stop 06/22/16 at 14:07; Status DC Vancomycin HCl 1500 mg/Sodium Chloride 515 ml @ 257.5 mls/ hr ONCE ONCE IV ; Start 06/20/16 at 11:00; Stop 06/20/16 at 11:26; Status DC Pharmacy Profile Note 0 ml @ 0 mls/hr UNSCH OTHER ; Start 06/20/16 at 11:00; Stop 06/22/16 at 14:07; Status DC Vancomycin HCl/ Sodium Chloride (Vancomycin Inj/ NS 500 ml Inj) 520 ml @ 250 mls/hr Q12H IV Last administered on 06/22/16 11:46; Start 06/20/16 at 13:00; Stop 06/22/16 at 14:07; Status DC Miscellaneous Information SPECIFIC LAB TO BE DRAWN:VANCO TROUGH DATE TO... ONCE ONCE .XX Last administered on 06/22/16 00:45; Start 06/22/16 at 00:45; Stop 06/22/16 at 00:46; Status DC Baclofen (Lioresal) 5 mg DAILY PO Last administered on 07/03/16 09:34; Start at 09:00 Pregabalin (Lyrica) 75 mg Q12HR PO Last administered on 07/03/16 09:33; Start 06/22/16 at 09:00 Miscellaneous Information SPECIFIC LAB TO BE ... ONCE ONCE .XX ; Start 06/23 at 12:45; Stop 06/23/16 at 12:45; Status DC Oxycodone HCl (Roxicodone) 2.5 mg Q4H PRN PO pain 1-6 Last administered on 16:15; Start 06/24/16 at 17:00 Date of Removal: Jun 29, 2016 A/P Assessment and Plan A/P Transaminitis. LFT improving. Abd pain, resolved Follow trend of LFT. Liver US shows fatty liver. Small stones or tumefactive sludge adherent to one of the gallbladder racos. 3. Splenomegaly. Avoid liver toxicity drugs. Hep panel negative Diabetes mellitus Currently on levemir 5 units HS. Diabetic Neuropathy: patient c/o left leg tingling/pins and needle on the left leg and seem. On lyrica to 50 mg po daily, improving. - No complains on Baclofen- improved PT ff Acute hypoxemic respiratory failure on T piece tolerates well [facility] History of staph aureus pneumonia/HCAP ARDS Currently on T-Piece, and tolerating well Pulm following, appreciate rec's. Trach collar with oxygen support to keep sat >92%. 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 Optifoam in place. Apply bacitracin. Wound cultures with normal sherine. Consult wound care, discussed with Nica from wound care, appreciate recommendations. Cleanse wound with NS and apply nonadhesive foam ag dressing over wound and change every other day and PRN for saturation or dislodgement. on silvadene cream daily Mild MR/TR. Monitor HR and BP keep MAP>65mmHg 2-D echo 03/26 EF 60%. No regional wall motion abnormality. Mild MR/TR. Hypokalemia-resolved Hypernatremia-resolved Hypophosphatemia Monitor renal function, and electrolytes periodically. Bumex 0.5mg/day- PEG route Constipation-resolved Moderate protein calorie malnutrition Nausea and vomiting- resolved On tube feeding. Protonix 40mg daily On Reglan 10mg Q8, Senna and Colace twice a day.Discontinue MiraLAX twice a day and lactulose 4 times a day. PEG tube placement- 05/03- tolerating TF Zofran 4 mg every 6 hours when necessary Likely SERENITY Toxic metabolic encephalopathy-resolved Continue with pain control. Seroquel 25mg BID initiated 3/ Acetaminophen for fever Staph aureus pneumonia- PSAE,MSSA Possible staph bacteremia Pertinent culture 04/27 - pansensitive staph aureus 04/27 blood cultures 2 negative 04/25 - urine -no growth 04/19 - blood cultures 2 out of 4 - staph aureus 04/19 - sputum - staph aureus 04/08 - sputum - staph aureus 04/03 - sputum - staph aureus 03/30 - sputum- -staph aureus 03/27 - sputum - staph aureus 03/26 - blood - staph hominis S/P On vancomycin 2 g IV every 12 are since 04/19 - 04/29 Azactam 04/27 through Finished clindamycin ID specialist consulted, Dr. Painter, appreciate recommendations. Finished course of abx- with Cefepime 06/25 ID specialist signed off. Leukocytosis Monitor CBC/coags periodically. Morbid obesity BMI of 51.8 Weight loss encouraged. DVT, GI prophylaxis -Bilateral lower extremity SCDs. PEG Protonix 40 mg daily. REglan 10 mg /PEG q 8 Lovenox 40 mg sq BID Left shoulder pain- - limited range of motion- Xrays negative for dislocation. PT consulted to specifically address this. if worsening pain will consider imaging studies. Discharge Planning needs SNF placement. dc planning in progress. Mg Stearns MD July 03, 2016 10:34
[2016-07-03] MEDS: INSULIN DETEMIR 100 UNITS/ML VIAL SQ SCH (20:13)
[2016-07-04] VITALS (11 sets, daily range): BP systolic 102–139; BP diastolic 57–72; PULSE 72–102; RESP 18–20; TEMP 98–99; O2SAT 93–100
[2016-07-04] MEDS: ARTIFICIAL TEARS OPTH SOLN 15 ML BTL EACH EYE SCH ×6 (01:21→20:44)
[2016-07-04] MEDS: ENOXAPARIN SODIUM 40 MG/0.4 ML SYRINGE SQ SCH ×2 (05:45→18:01)
[2016-07-04] MEDS: CHLORHEXIDINE 0.12% (ORAL KIT) 15 ML CUP MT SCH ×2 (08:00→20:00)
[2016-07-04] MEDS: BENEPROTEIN POWDER 1 PACK G-TUBE SCH ×3 (08:48→18:01)
[2016-07-04] MEDS: DOCUSATE SODIUM 100 MG/10 ML UDC PO SCH ×2 (08:48→20:42)
[2016-07-04] MEDS: SODIUM CHLORIDE 0.9% FLUSH 5 ML FLUSH IVF SCH (08:48)
--- NOTE | 2016-07-04 08:48 | HHI.PR ---
Subjective Remarks resting comfortably. no new complaints. d/w the RN and no acute issues over night. Objective Vitals Vital Signs Date Time Temp Pulse Resp B/P Pulse Ox O2 Delivery O2 Flow Rate FiO2 07/04/16 08:00 98.2 95 20 114/59 94 07/04/16 04:00 98.7 72 20 117/66 95 07/04/16 00:00 99.0 99 20 110/60 95 07/03/16 20:00 99.0 100 18 96/49 93 07/03/16 20:00 T-Piece 6.00 35 07/03/16 20:00 102 07/03/16 17:44 94 T-piece 6.00 35 07/03/16 16:00 98.4 86 18 102/58 94 07/03/16 12:00 98.2 92 18 92/55 92 07/03/16 11:32 93 T-piece 6.00 35 07/03/16 08:50 99 I/O 07/03/16 07/03/16 07/03/16 07/04/16 07/04/16 07/04/16 07:00 15:00 23:00 07:00 15:00 23:00 Intake Total 0 ml 720 ml 480 ml Output Total 500 ml 500 ml 600 ml Balance -500 ml 220 ml -120 ml Intake Oral 0 ml 720 ml 480 ml Output Urine Total 500 ml 500 ml 600 ml # Bowel Movements 0 1 Result Diagram: 07/01/16 0753 07/01/16 0753 Imaging Last Impressions Chest X-Ray 06/30/16 0600 Signed Impressions: Service Date/Time: Thursday, June 30, 2016 06:07 - CONCLUSION: No significant change. Mild bilateral perihilar and basilar consolidation again noted. Ubaldo Ortiz MD Shoulder X-Ray 06/28/16 0000 Signed Impressions: Service Date/Time: June 15:12 - CONCLUSION: 1. Limited but negative examination of the shoulder. Kyaw Rojo MD Abdomen X-Ray 06/19/16 0000 Signed Impressions: Service Date/Time: Sunday, June 19, 2016 10:43 - CONCLUSION: Gastric tube tip does not cross the diaphragm and the side port is approximately 8 cm above the diaphragm. Chano Goodwin MD Lower Extremity Ultrasound 06/04/16 0000 Signed Impressions: Service Date/Time: Saturday, June 04, 2016 14:54 - CONCLUSION: 1. No DVT identified. Dc Barton MD Liver Ultrasound 05/09/16 0000 Signed Impressions: Service Date/Time: Monday, May 09, 2016 22:28 - CONCLUSION: 1. Enlarged, fatty liver. 2. Small stones or tumefactive sludge adherent to one of the gallbladder arcos. 3. Splenomegaly. 4. Pancreas is obscured by overlying bowel gas and patient's body habitus. Arthur Kennedy MD Chest CT 03/28/16 0836 Signed Impressions: Service Date/Time: Monday, March 28, 2016 09:57 - CONCLUSION: Development areas of air bronchograms and consolidation more prominent in the right and left posterior basilar segments of the lower lobes. ET tube above the chanelle. Bernard Hartman MD CT Angiography 03/24/16 1121 Signed Impressions: Service Date/Time: Thursday, March 24, 2016 12:47 - CONCLUSION: 1. There is respiratory motion artifact but no PE is identified through most of the segmental level pulmonary arteries. 2. Mildly enlarged main pulmonary artery may indicate pulmonary arterial hypertension. 3. 11 mm left lower lobe noncalcified pulmonary nodule. Suggest correlation with any prior imaging studies that could confirm longer-term stability. If none are available consider short-term followup noncontrast chest CT in approximately 3 months. Ubaldo Rodas MD Objective Remarks GENERAL: in no apparent distress. Neck; trach in place CARDIOVASCULAR: Regular rate and regular rhythm without murmurs, gallops, or rubs. RESPIRATORY: Clear to auscultation. Breath sounds equal bilaterally. No wheezes , rales, or rhonchi. GASTROINTESTINAL: Abdomen soft, non-tender, nondistended. Normal, active bowel sounds MUSCULOSKELETAL: Extremities without clubbing, cyanosis, or edema. NEURO: Alert & Oriented x4 to person, place, time, situation. Moves all ext x4 Procedures 04/30/16 - tracheostomy by Dr. Reyes 05/03/16 - EGD with PEG placement by Dr. Faith 06/09/16 - PEG removal 06/21/16- repeat tracheostomy by Dr. Cuellar Medications and IVs Current Medications IV Flush (NS Flush) 2 ml UNSCH PRN IVF FLUSH AFTER USING IV ACCESS Last administered on 05/23/16 05:55; Start 03/24/16 at 11:30 Iohexol (Omnipaque 350 Inj) 89 ml STK-MED ONCE IV Last administered on 13:08; Start 03/24/16 at 13:08; Stop 03/24/16 at 13:09; Status DC Albuterol/ Ipratropium (Duoneb Neb) 1 ampule Q6HR NEB NEB Last administered on 04/04/16 07:42; Start 03/24/16 at 17:00; Stop 04/04/16 at 07:43; Status DC Dextrose (D50w (Vial) Inj) 25 ml UNSCH PRN IV PUSH HYPOGLYCEMIA-SEE COMMENTS; Start 03/24/16 at 16:30; Stop 03/31/16 at 11:22; Status DC Glucagon (Glucagon Inj) 1 mg UNSCH PRN OTHER HYPOGLYCEMIA-SEE COMMENTS; Start 03/24/16 at 16:30; Stop 03/31/16 at 11:22; Status DC Insulin Human Regular (NovoLIN R SUPPLEMENTAL SCALE) 1 ACHS SLIDING SCALE SQ Last administered on 03/31/16 06:09; Start 03/24/16 at 21:00; Stop 03/31/16 at 11:16; Status DC Albuterol/ Ipratropium (Duoneb Neb) 1 ampule Q2HR NEB PRN NEB WHEEZING AND SOB Last administered on 04/20/16 08:10; Start 03/24/16 at 16:45; Stop 04/23/16 at 13:22; Status DC Enoxaparin Sodium (Lovenox Inj) 40 mg Q24H SQ Last administered on 03/25/16 17 :00; Start 03/24/16 at 17:00; Stop 03/26/16 at 16:40; Status DC Pantoprazole Sodium (Protonix) 40 mg DAILY PO Last administered on 03/26/16 08 :35; Start 03/25/16 at 09:00; Stop 03/26/16 at 16:40; Status DC Influenza Virus Vaccine (Flu (Quadrivalent) Vaccine Inj) 0.5 ml ONCE ONCE IM Last administered on 03/25/16 08:57; Start 03/25/16 at 10:00; Stop 03/25/16 at 10:01; Status DC Chlorhexidine Gluconate (Chlorhexidine 2% Cloth) 3 pack DAILY@04 TOP Last administered on 03/29/16 03:42; Start 03/25/16 at 04:00; Stop 03/29/16 at 04:01 ; Status DC Chlorhexidine Gluconate (Chlorhexidine 2% Cloth) 3 pack UNSCH PRN TOP HYGIENIC CARE; Start 03/24/16 at 19:15; Stop 03/29/16 at 19:07; Status DC Tiotropium [place] (Spiriva Inh) 18 mcg DAILY INH Last administered on 08:36; Start 03/25/16 at 13:45; Stop 05/05/16 at 13:25; Status DC Metformin HCl (Glucophage) 500 mg BIDPC PO Last administered on 03/28/16 08:18 ; Start 03/26/16 at 09:00; Stop 04/07/16 at 10:16; Status DC Betamethasone/ Clotrimazole (Lotrisone Cream) 1 applic Q12HR TOPICAL Last administered on 07/03/16 20:15; Start 03/26/16 at 09:00 Methylprednisolone Sodium Succinate 60 mg 60 mg Q12HR IV PUSH Last administered on 03/28/16 08:17; Start 03/26/16 at 13:30; Stop 03/28/16 at 10:25 ; Status DC Propofol (Diprivan 1000 Mg/100ml Inj) 100 ml @ As Directed STK-MED ONCE .ROUTE ; Start 03/26/16 at 13:16; Stop 03/26/16 at 13:17; Status DC Etomidate 40 mg 40 mg STK-MED ONCE .ROUTE ; Start 03/26/16 at 13:20; Stop at 13:21; Status DC Propofol 100 ml @ 0 mls/hr TITRATE IV Last administered on 04/15/16 06:35; Start 03/26/16 at 14:30; Stop 05/02/16 at 08:34; Status DC Fentanyl Citrate (fentaNYL DRIP) 250 ml @ 0 mls/hr TITRATE IV Last administered on 05/02/16 15:59; Start 03/26/16 at 14:30; Stop 05/02/16 at 19:46; Status DC Rocuronium [place] (Zemuron Inj) 50 mg STK-MED ONCE .ROUTE ; Start 03/26/16 at 15:38; Stop 03/26/16 at 15:39; Status DC Rocuronium [place] (Zemuron Inj) 50 mg STK-MED ONCE .ROUTE ; Start 03/26/16 at 15:40; Stop 03/26/16 at 15:41; Status DC Furosemide (Lasix Inj) 40 mg ONCE ONCE IV PUSH Last administered on 03/26/16 18:00; Start 03/26/16 at 16:45; Stop 03/26/16 at 17:08; Status DC Furosemide (Lasix Inj) 20 mg BID@09,18 IV PUSH Last administered on 03/29/16 08:06; Start 03/26/16 at 18:00; Stop 03/29/16 at 08:43; Status DC Pantoprazole Sodium (Protonix Inj) 40 mg Q24H IV PUSH Last administered on 05/24 18:00; Start 03/26/16 at 18:00; Stop 05/25/16 at 12:09; Status DC Enoxaparin Sodium 40 mg 40 mg Q12H SQ Last administered on 07/04/16 05:45; Start 03/26/16 at 18:00 Aztreonam 2000 mg/ Sodium Chloride 100 ml @ 200 mls/hr Q8H IV Last administered on 03/31/16 10:23; Start 03/26/16 at 18:00; Stop 03/31/16 at 13:55 ; Status DC Potassium Chloride 100 ml @ 50 mls/hr Q2H PRN IV For Potassium 2.8 - 3.2 mEq/ L Last administered on 05/03/16 23:31; Start 03/26/16 at 16:45; Stop 05/17/16 at 17:12; Status DC Potassium Chloride (KCl 20 Meq Premix Inj) 100 ml @ 50 mls/hr Q2H PRN IV For Potassium 2.8 - 3.2 mEq/L Last administered on 05/07/16 23:26; Start 03/26/16 at 16:45; Stop 05/17/16 at 17:12; Status DC Potassium Chloride 40 meq 40 meq UNSCH PRN PO/TUBE For Potassium 3.3 - 3.5 mEq/ L Last administered on 05/17/16 09:28; Start 03/26/16 at 16:45; Stop 05/17/16 at 17:12; Status DC Potassium Chloride 100 ml @ 25 mls/hr UNSCH PRN IV For Potassium 3.3 - 3.5 mEq /L Last administered on 04/20/16 09:17; Start 03/26/16 at 16:45; Stop 05/17/16 at 17:12; Status DC Potassium Chloride 100 ml @ 50 mls/hr Q2H PRN IV For Potassium 3.3 - 3.5 mEq/ L Last administered on 05/08/16 11:22; Start 03/26/16 at 16:45; Stop 05/17/16 at 17:12; Status DC Magnesium Sulfate/ Sodium Chloride (Magnesium Sulfate Inj/NS Inj) 100 ml @ 50 mls/hr UNSCH PRN IV For Magnesium 0.9 - 1.1 mg/dL; Start 03/26/16 at 16:45; Stop 05/17/16 at 17:12; Status DC Magnesium Oxide 800 mg 800 mg UNSCH PRN PO For Magnesium 1.2 - 1.6 mg/dL; Start 03/26/16 at 16:45; Stop 05/17/16 at 17:12; Status DC Magnesium Sulfate/ Sodium Chloride (Magnesium Sulfate Inj/NS Inj) 100 ml @ 50 mls/hr UNSCH PRN IV For Magnesium 1.2 - 1.6 mg/dL; Start 03/26/16 at 16:45; Stop 05/17/16 at 17:12; Status DC Potassium Phosphate 2000 mg 2,000 mg Q4H PRN PO For Phosphorus < 2.5 mg/dL Last administered on 04/01/16 05:08; Start 03/26/16 at 16:45; Stop 05/17/16 at 17:12; Status DC Sodium Phosphate/ Sodium Chloride (Sodium Phosphate Inj/NS 250 ml Inj) 250 ml @ 42 mls/hr UNSCH PRN IV For Phosphorus < 2.5 mg/dL Last administered on 14:19; Start 03/26/16 at 16:45; Stop 05/17/16 at 17:12; Status DC Potassium Chloride (KCl 40 Meq/30 ml Liq) 40 meq UNSCH PRN PO/TUBE SEE LABEL COMMENTS; Start 03/26/16 at 16:45; Stop 05/17/16 at 17:12; Status DC Potassium Phosphate 2000 mg 2,000 mg UNSCH PRN PO/TUBE SEE LABEL COMMENTS; Start 03/26/16 at 16:45; Stop 05/17/16 at 17:12; Status DC Potassium Phosphate/Sodium Chloride (Potassium Phosphate Inj/NS 250 ml Inj) 260 ml @ 42 mls/hr UNSCH PRN IV SEE LABEL COMMENTS Last administered on 05/03/16 08:23; Start 03/26/16 at 16:45; Stop 05/17/16 at 17:12; Status DC Potassium Chloride 40 meq 40 meq DAILY PO Last administered on 04/01/16 09:18 ; Start 03/26/16 at 18:00; Stop 04/02/16 at 07:20; Status DC Metronidazole (Flagyl 500 Mg Inj) 100 ml @ 100 mls/hr Q8H IV Last administered on 04/10/16 07:44; Start 03/27/16 at 08:00; Stop 04/10/16 at 13:30; Status DC Protein 1 pack 1 pack TID G-TUBE Last administered on 07/03/16 17:22; Start at 09:00 Vancomycin HCl 1500 mg/Sodium Chloride 515 ml @ 257.5 mls/ hr ONCE ONCE IV Last administered on 03/27/16 10:21; Start 03/27/16 at 09:00; Stop 03/27/16 at 10:59; Status DC Pharmacy Profile Note 0 ml @ 0 mls/hr UNSCH OTHER ; Start 03/27/16 at 08:00; Stop 03/31/16 at 13:55; Status DC Vancomycin HCl/ Sodium Chloride (Vancomycin Inj/ NS 500 ml Inj) 520 ml @ 260 mls/hr Q24H IV Last administered on 03/30/16 04:04; Start 03/28/16 at 04:00; Stop 03/30/16 at 11:11; Status DC Miscellaneous Information SPECIFIC LAB TO BE ... ONCE ONCE XX Last administered on 03/30/16 03:45; Start 03/30/16 at 03:45; Stop 03/30/16 at 03:46 ; Status DC Insulin Detemir 5 units 5 units Q12HR SQ Last administered on 03/31/16 21:17; Start 03/28/16 at 11:00; Stop 04/01/16 at 08:57; Status DC Pharmacy Profile Note (Vancomycin Consult Pharmacy) 0 ml @ 0 mls/hr UNSCH OTHER ; Start 03/28/16 at 10:15; Status UNV Methylprednisolone Sodium Succinate (SoluMEDROL INJ) 40 mg Q12HR IV PUSH Last administered on 04/17/16 07:26; Start 03/28/16 at 21:00; Stop 04/17/16 at 09:03 ; Status DC Docusate Sodium (Colace Liq) 100 mg Q12HR PO Last administered on 06/29/16 08: 14; Start 03/29/16 at 09:00 Sennosides (Senna Liq) 8.8 mg DAILY PO Last administered on 03/31/16 08:40; Start 03/29/16 at 09:00; Stop 04/01/16 at 08:57; Status DC Furosemide (Lasix Inj) 40 mg BID@09,18 IV PUSH ; Start 03/29/16 at 18:00; Stop 03/29/16 at 18:00; Status DC Furosemide 40 mg 40 mg BID@09,18 IV PUSH Last administered on 04/01/16 17:37; Start 03/29/16 at 09:00; Stop 04/02/16 at 07:14; Status DC Vancomycin HCl/ Sodium Chloride (Vancomycin Inj/ NS 500 ml Inj) 517.5 ml @ 250 mls/hr Q12H IV Last administered on 03/31/16 03:19; Start 03/30/16 at 16:00; Stop 03/31/16 at 13:55; Status DC Miscellaneous Information SPECIFIC LAB TO BE ISHAAN... ONCE ONCE XX Last administered on 03/31/16 15:41; Start 03/31/16 at 15:45; Stop 03/31/16 at 15:46 ; Status DC Acetaminophen (Tylenol 650 Mg/ 20 ml Liq) 650 mg Q6H PRN PO fever or pain 1-5 Last administered on 06/23/16 21:37; Start 03/30/16 at 15:45 Bumetanide (Bumex Inj) 1 mg ONCE ONCE IV PUSH ; Start 03/31/16 at 09:30; Stop 03/31/16 at 10:40; Status DC Dextrose (D50w (Vial) Inj) 25 ml UNSCH PRN IV PUSH HYPOGLYCEMIA-SEE COMMENTS; Start 03/31/16 at 11:15; Stop 04/03/16 at 17:53; Status DC Glucagon (Glucagon Inj) 1 mg UNSCH PRN OTHER HYPOGLYCEMIA-SEE COMMENTS; Start 03/31/16 at 11:15; Stop 04/07/16 at 10:46; Status DC Insulin Human Regular 1 1 Q6H SQ Last administered on 04/03/16 17:48; Start at 12:00; Stop 04/03/16 at 17:54; Status DC Levofloxacin/ Dextrose 150 ml @ 100 mls/hr Q24H IV Last administered on 14:07; Start 03/31/16 at 14:00; Stop 04/16/16 at 09:51; Status DC Fluconazole/ Sodium Chloride 200 ml @ 100 mls/hr Q24H IV Last administered on 04/09/16 15:48; Start 03/31/16 at 16:00; Stop 04/10/16 at 13:31; Status DC Linezolid 300 ml @ 300 mls/hr Q12H IV Last administered on 04/04/16 02:45; Start 03/31/16 at 15:00; Stop 04/04/16 at 09:59; Status DC Cisatracurium Besylate 100 mg/ Sodium Chloride 250 ml @ 0 mls/hr TITRATE IV Last administered on 04/14/16 11:39; Start 04/01/16 at 09:00; Stop 04/15/16 at 09:02; Status DC Epoprostenol Sodium/Sodium Chloride (Flolan (30,000 Ng/ml) Neb/NS Inj) 100 ml @ 8 mls/hr Q8H NEB Last administered on 04/15/16 02:32; Start 04/01/16 at 10:00 ; Stop 04/15/16 at 09:02; Status DC Insulin Detemir (Levemir Inj) 15 units Q12HR SQ Last administered on 04/01/16 20:13; Start 04/01/16 at 09:00; Stop 04/02/16 at 07:14; Status DC Sennosides (Senna Liq) 8.8 mg BID PO/TUBE Last administered on 06/26/16 09:07 ; Start 04/01/16 at 09:00 Polyethylene Glycol (Miralax) 17 gm BID PO Last administered on 04/03/16 21:14 ; Start 04/01/16 at 09:00; Stop 04/23/16 at 13:31; Status DC Lactulose (Lactulose Liq) 30 ml QID PO Last administered on 04/01/16 20:13; Start 04/01/16 at 09:00; Stop 04/02/16 at 07:14; Status DC Methylnaltrexone [place] (Relistor Inj) 12 mg ONCE ONCE SQ Last administered on 04/01/16 11:44; Start 04/01/16 at 10:30; Stop 04/01/16 at 10:31; Status DC Metoclopramide HCl (Reglan Inj) 5 mg Q8HR IV PUSH Last administered on 05:42; Start 04/01/16 at 14:00; Stop 04/11/16 at 09:15; Status DC Glycerin (Glycerin Adult Supp) 2 gm BID PRN RECTAL CONSTIPATION Last administered on 04/25/16 10:22; Start 04/01/16 at 09:00 Glycerin (Glycerin Adult Supp) 2 gm ONCE ONCE RECTAL Last administered on 04/01 10:52; Start 04/01/16 at 09:30; Stop 04/01/16 at 09:31; Status DC Mineral Oil (Mineral Oil Liq) 15 ml ONCE ONCE PO Last administered on 10:00; Start 04/01/16 at 10:00; Stop 04/01/16 at 10:01; Status DC Chlorhexidine Gluconate 15 ml 15 ml BID@08,20 MT Last administered on 07/02/16 20:00; Start 04/01/16 at 20:00 Midazolam HCl 100 ml @ 0 mls/hr TITRATE IV Last administered on 05/01/16 14:25 ; Start 04/01/16 at 11:45; Stop 05/02/16 at 08:35; Status DC Norepinephrine Bitartrate (Levophed-Dextrose Drip) 250 ml @ 0 mls/hr TITRATE IV Last administered on 04/01/16 21:15; Start 04/01/16 at 20:30; Stop 04/07/16 at 10:10; Status DC Furosemide (Lasix Inj) 20 mg BID@09,18 IV PUSH Last administered on 04/03/16 08:17; Start 04/02/16 at 09:00; Stop 04/03/16 at 12:58; Status DC Insulin Detemir (Levemir Inj) 25 units Q12HR SQ Last administered on 04/03/16 08:17; Start 04/02/16 at 09:00; Stop 04/03/16 at 12:48; Status DC IV Flush (NS Flush) DAILY IVF Last administered on 07/02/16 08:50; Start 04/03 at 09:00 IV Flush (NS Flush) UNSCH PRN IVF SEE PROTOCOL Last administered on 04/22/16 07:42; Start 04/02/16 at 09:30 Artificial Tears (Lacrilube Opht Oint) 1 applic Q12HR EACH EYE Last administered on 06/02/16 08:46; Start 04/02/16 at 12:00; Stop 06/02/16 at 14:00; Status DC Lactobacillus Acidophilus (Lactinex) 1 tab TID PO Last administered on 17:23; Start 04/03/16 at 13:00 Insulin Detemir (Levemir Inj) 40 units Q12HR SQ ; Start 04/03/16 at 21:00; Stop 04/03/16 at 21:00; Status DC Insulin Human NPH 15 units 15 units ONCE ONCE SQ Last administered on 13:08; Start 04/03/16 at 13:00; Stop 04/03/16 at 13:01; Status DC Sodium Chloride (NS 1000 ml Inj) 1,000 ml @ 999 mls/hr BOLUS ONCE IV Last administered on 04/03/16 13:10; Start 04/03/16 at 13:00; Stop 04/03/16 at 14:00 ; Status DC Sodium Polystyrene Sulfonate 15 gm 15 gm ONCE ONCE PO Last administered on 13:22; Start 04/03/16 at 13:00; Stop 04/03/16 at 13:08; Status DC Insulin Human Regular/Sodium Chloride (NovoLIN R (IV INFUSION)/NS Inj) 100 ml @ 0 mls/hr TITRATE IV Last administered on 04/03/16 22:44; Start 04/03/16 at 18: 00; Stop 04/04/16 at 09:12; Status DC Dextrose (D50w (Vial) Inj) 25 ml UNSCH PRN IV PUSH SEE LABEL COMMENTS; Start at 17:45; Stop 04/04/16 at 09:14; Status DC Miscellaneous Information 1 ONCE ONCE XX Last administered on 04/03/16 20:27 ; Start 04/03/16 at 17:45; Stop 04/03/16 at 17:52; Status DC Albuterol/ Ipratropium (Duoneb Neb) 1 ampule Q4HR NEB NEB Last administered on 04/08/16 03:48; Start 04/04/16 at 08:00; Stop 04/08/16 at 08:00; Status DC Furosemide 20 mg 20 mg BID@09,18 IV PUSH Last administered on 04/15/16 08:12; Start 04/04/16 at 09:00; Stop 04/15/16 at 09:53; Status DC Insulin Human Regular/Sodium Chloride (NovoLIN R (IV INFUSION)/NS Inj) 100 ml @ 0 mls/hr TITRATE IV Last administered on 04/07/16 04:33; Start 04/04/16 at 09:00 ; Stop 04/07/16 at 10:11; Status DC Dextrose (D50w (Vial) Inj) 25 ml UNSCH PRN IV PUSH SEE LABEL COMMENTS; Start at 09:00; Stop 04/07/16 at 10:46; Status DC Miscellaneous Information 1 ONCE ONCE XX Last administered on 04/04/16 10:00; Start 04/04/16 at 10:00; Stop 04/04/16 at 10:01; Status DC Insulin Detemir (Levemir Inj) 60 units Q12HR SQ Last administered on 04/07/16 07:41; Start 04/05/16 at 11:00; Stop 04/08/16 at 08:14; Status DC Dextrose (D50w (Vial) Inj) 25 ml UNSCH PRN IV PUSH HYPOGLYCEMIA-SEE COMMENTS; Start 04/07/16 at 10:15; Stop 04/07/16 at 17:03; Status DC Glucagon (Glucagon Inj) 1 mg UNSCH PRN OTHER HYPOGLYCEMIA-SEE COMMENTS; Start 04/07/16 at 10:15; Stop 04/07/16 at 17:03; Status DC Insulin Human Regular (NovoLIN R SUPPLEMENTAL SCALE) 1 Q6H SQ Last administered on 04/07/16 10:56; Start 04/07/16 at 11:00; Stop 04/07/16 at 17:01; Status DC Insulin Detemir (Levemir Inj) 20 units Q12HR SQ Last administered on 04/08/16 07:26; Start 04/07/16 at 21:00; Stop 04/08/16 at 08:14; Status DC Dextrose (D50w (Vial) Inj) 25 ml UNSCH PRN IV PUSH HYPOGLYCEMIA-SEE COMMENTS; Start 04/07/16 at 17:00; Stop 05/13/16 at 13:50; Status DC Glucagon (Glucagon Inj) 1 mg UNSCH PRN OTHER HYPOGLYCEMIA-SEE COMMENTS; Start 04/07/16 at 17:00; Stop 05/13/16 at 13:50; Status DC Insulin Human Regular (NovoLIN R SUPPLEMENTAL SCALE) 1 Q6H SQ Last administered on 05/11/16 17:08; Start 04/07/16 at 18:00; Stop 05/13/16 at 13:50 ; Status DC Insulin Detemir 24 units 24 units Q12HR SQ Last administered on 04/09/16 07:37 ; Start 04/08/16 at 21:00; Stop 04/09/16 at 10:01; Status DC Vancomycin HCl 1750 mg/Sodium Chloride 517.5 ml @ 258.75 mls/ hr ONCE ONCE IV Last administered on 04/08/16 14:42; Start 04/08/16 at 13:00; Stop 04/08/16 at 14:59; Status DC Sodium Chloride (NS 500 ml Inj) 500 ml @ 500 mls/hr BOLUS ONCE IV Last administered on 04/08/16 17:20; Start 04/08/16 at 17:15; Stop 04/08/16 at 18:14; Status DC Insulin Detemir 30 units 30 units Q12HR SQ Last administered on 04/10/16 08:29 ; Start 04/09/16 at 21:00; Stop 04/10/16 at 10:25; Status DC Pharmacy Profile Note 0 ml @ 0 mls/hr UNSCH OTHER ; Start 04/09/16 at 10:30; Stop 04/12/16 at 13:55; Status DC Vancomycin HCl/ Sodium Chloride (Vancomycin Inj/ NS 500 ml Inj) 515 ml @ 257.5 mls/ hr Q12H IV Last administered on 04/10/16 11:16; Start 04/09/16 at 12:00; Stop 04/10/16 at 13:51; Status DC Miscellaneous Information SPECIFIC LAB TO BE DRAWN:[facility]... ONCE ONCE XX ; Start 04/10/16 at 11:45; Stop 04/10/16 at 11:46; Status DC Insulin Detemir 35 units 35 units Q12HR SQ Last administered on 04/11/16 08:07 ; Start 04/10/16 at 21:00; Stop 04/11/16 at 09:15; Status DC Vancomycin HCl/ Sodium Chloride (Vancomycin Inj/ NS 500 ml Inj) 520 ml @ 260 mls/hr Q12H IV Last administered on 04/12/16 08:14; Start 04/10/16 at 20:00; Stop 04/12/16 at 13:55; Status DC Miscellaneous Information SPECIFIC LAB TO BE ISHAAN... ONCE ONCE XX Last administered on 04/12/16 07:45; Start 04/12/16 at 07:45; Stop 04/12/16 at 07:46; Status DC Insulin Detemir (Levemir Inj) 45 units Q12HR SQ Last administered on 04/23/16 08:29; Start 04/11/16 at 21:00; Stop 04/23/16 at 13:24; Status DC Metoclopramide HCl 10 mg 10 mg Q8HR IV PUSH Last administered on 05/25/16 06: 05; Start 04/11/16 at 14:00; Stop 05/25/16 at 12:09; Status DC Sodium Chloride (NS 1000 ml Inj) 2,000 ml @ 0 mls/hr NOW ONCE IV Last administered on 04/11/16 21:01; Start 04/11/16 at 21:00; Stop 04/11/16 at 21:01; Status DC Miscellaneous Information SPECIFIC LAB TO BE DRAWN:VANCOMYCIN TROUGH DATE TO... ONCE ONCE XX ; Start 04/13/16 at 19:45; Stop 04/13/16 at 19:46; Status Cancel Furosemide 20 mg 20 mg Q6H IV PUSH Last administered on 04/16/16 08:40; Start 04/12/16 at 15:00; Stop 04/16/16 at 09:25; Status DC Epoprostenol Sodium 30 ml/ Sodium Chloride 67.5 ml @ 8 mls/hr Q8H NEB ; Start 04/15/16 at 10:00; Stop 04/15/16 at 10:00; Status DC Epoprostenol Sodium/Sodium Chloride (Flolan (30,000 Ng/ml) Neb/NS Inj) 100 ml @ 8 mls/hr Q8H NEB Last administered on 04/18/16 02:09; Start 04/15/16 at 10:00 ; Stop 04/18/16 at 10:15; Status DC Furosemide (Lasix Inj) 20 mg Q8H IV PUSH Last administered on 04/23/16 08:31; Start 04/16/16 at 17:00; Stop 04/23/16 at 13:44; Status DC Methylprednisolone Sodium Succinate 40 mg 40 mg DAILY IV PUSH Last administered on 05/02/16 08:11; Start 04/18/16 at 09:00; Stop 05/02/16 at 08:39; Status DC Epoprostenol Sodium 25 ml/ Sodium Chloride 100 ml @ 8 mls/hr Q8H NEB Last administered on 04/19/16 13:12; Start 04/18/16 at 15:00; Stop 04/19/16 at 15:59 ; Status DC Vancomycin HCl 1500 mg/Sodium Chloride 515 ml @ 257.5 mls/ hr ONCE ONCE IV Last administered on 04/19/16 13:45; Start 04/19/16 at 13:00; Stop 04/19/16 at 14:59; Status DC Epoprostenol Sodium 12.5 ml/ Sodium Chloride 100 ml @ 8 mls/hr Q8H NEB Last administered on 04/20/16 00:29; Start 04/19/16 at 16:00; Stop 04/20/16 at 15:11 ; Status DC Pharmacy Profile Note 0 ml @ 0 mls/hr UNSCH OTHER ; Start 04/20/16 at 14:15; Stop 04/29/16 at 10:33; Status DC Vancomycin HCl/ Sodium Chloride (Vancomycin Inj/ NS 500 ml Inj) 520 ml @ 250 mls/hr Q12H IV Last administered on 04/24/16 05:53; Start 04/20/16 at 18:00; Stop 04/24/16 at 09:15; Status DC Miscellaneous Information SPECIFIC LAB TO BE DRAWN:VANCO TROUGH DATE TO... ONCE ONCE XX Last administered on 04/22/16 05:45; Start 04/22/16 at 05:45; Stop 04/22/16 at 05:46; Status DC Potassium Bicarb/ Potassium Chloride (K-Lyte Cl Eff) 25 meq Q12HR PO Last administered on 04/28/16 07:49; Start 04/21/16 at 21:00; Stop 05/27/16 at 08:44 ; Status DC Artificial Tears (Tears Naturale Opth Soln) 1 drop Q4H EACH EYE Last administered on 07/03/16 12:47; Start 04/21/16 at 18:00 Water (Free Water) 200 ml Q6HR G-TUBE Last administered on 04/30/16 12:00; Start 04/22/16 at 18:00; Stop 05/01/16 at 17:19; Status DC Albuterol/ Ipratropium (Duoneb Neb) 1 ampule Q6HR NEB NEB Last administered on 04/27/16 08:03; Start 04/23/16 at 16:00; Stop 04/27/16 at 16:00; Status DC Albuterol/ Ipratropium (Duoneb Neb) 1 ampule Q2HR NEB PRN NEB [id number] Last administered on 05/11/16 15:54; Start 04/23/16 at 13:15; Stop 05/17/16 at 20:14 ; Status DC Insulin Detemir (Levemir Inj) 55 units Q12HR SQ Last administered on 04/24/16 08:34; Start 04/23/16 at 21:00; Stop 04/24/16 at 12:17; Status DC Polyethylene Glycol (Miralax) 17 gm BID PO Last administered on 07/01/16 20:31 ; Start 04/24/16 at 09:00 Furosemide 20 mg 20 mg BID IV PUSH Last administered on 04/28/16 07:50; Start 04/23/16 at 21:00; Stop 04/28/16 at 11:08; Status DC Vancomycin HCl/ Sodium Chloride (Vancomycin Inj/ NS 500 ml Inj) 515 ml @ 257.5 mls/ hr Q12H IV Last administered on 04/28/16 11:59; Start 04/24/16 at 23:00; Stop 04/28/16 at 14:04; Status DC Miscellaneous Information SPECIFIC LAB TO BE .. ONCE ONCE XX Last administered on 04/25/16 22:45; Start 04/25/16 at 22:45; Stop 04/25/16 at 22:46 ; Status DC Insulin Detemir (Levemir Inj) 65 units Q12HR SQ Last administered on 04/25/16 09:00; Start 04/24/16 at 21:00; Stop 04/25/16 at 15:10; Status DC Polyethylene Glycol (Miralax) 17 gm ONCE ONCE PO Last administered on 16:21; Start 04/25/16 at 15:15; Stop 04/25/16 at 15:16; Status DC Polyethylene Glycol (Miralax) 17 gm DAILY PO ; Start 04/26/16 at 09:00; Stop at 11:33; Status DC Mineral Oil (Mineral Oil Liq) 15 ml ONCE ONCE PO Last administered on 16:21; Start 04/25/16 at 16:00; Stop 04/25/16 at 16:01; Status DC Potassium Chloride (KCl 40 Meq/30 ml Liq) 40 meq ONCE ONCE PO Last administered on 04/25/16 16:21; Start 04/25/16 at 15:15; Stop 04/25/16 at 15:16 ; Status DC Insulin Detemir (Levemir Inj) 75 units Q12HR SQ Last administered on 04/26/16 09:13; Start 04/25/16 at 21:00; Stop 04/26/16 at 14:43; Status DC Methylnaltrexone [place] (Relistor Inj) 12 mg ONCE ONCE SQ Last administered on 04/25/16 16:22; Start 04/25/16 at 16:00; Stop 04/25/16 at 16:01; Status DC Miscellaneous Information SPECIFIC LAB TO BE DRAWN:VANCO TROUGH DATE TO BE .. ONCE ONCE XX Last administered on 04/28/16 10:45; Start 04/28/16 at 10: 45; Stop 04/28/16 at 10:46; Status DC Methylnaltrexone [place] (Relistor Inj) 12 mg ONCE ONCE SQ Last administered on 04/26/16 15:18; Start 04/26/16 at 14:30; Stop 04/26/16 at 14:56; Status DC Lactulose (Lactulose Liq) 30 ml QID PO Last administered on 04/28/16 07:47; Start 04/26/16 at 18:00; Stop 05/27/16 at 08:44; Status DC Mineral Oil (Mineral Oil Liq) 15 ml ONCE ONCE PO Last administered on 15:19; Start 04/26/16 at 14:30; Stop 04/26/16 at 14:56; Status DC Sennosides (Senna Liq) 8.8 mg ONCE ONCE PO Last administered on 04/26/16 15: 25; Start 04/26/16 at 14:30; Stop 04/26/16 at 14:56; Status DC Magnesium Citrate (Citroma Liq) 300 ml ONCE ONCE PO Last administered on 15:25; Start 04/26/16 at 14:45; Stop 04/26/16 at 14:56; Status DC Potassium Chloride (KCl 40 Meq/30 ml Liq) 40 meq ONCE ONCE PO Last administered on 04/26/16 15:25; Start 04/26/16 at 14:45; Stop 04/26/16 at 14:56 ; Status DC Insulin Detemir (Levemir Inj) 80 units Q12HR SQ Last administered on 04/28/16 07:49; Start 04/26/16 at 21:00; Stop 04/28/16 at 11:19; Status DC Nystatin 1 applic 1 applic Q12HR TOPICAL Last administered on 07/03/16 09:37; Start 04/27/16 at 11:00 Aztreonam/Sodium Chloride (Azactam Inj/NS Inj) 100 ml @ 200 mls/hr Q8H IV Last administered on 04/29/16 02:39; Start 04/27/16 at 10:00; Stop 04/29/16 at 10:34; Status DC Potassium Chloride (KCl 40 Meq/30 ml Liq) 40 meq ONCE ONCE PO Last administered on 04/27/16 13:00; Start 04/27/16 at 13:00; Stop 04/27/16 at 13:02 ; Status DC Albuterol/ Ipratropium (Duoneb Neb) 1 ampule Q4HR NEB NEB Last administered on 05/02/16 07:53; Start 04/28/16 at 12:00; Stop 05/02/16 at 12:00; Status DC Sodium Chloride 2 ml 2 ml Q8HR NEB NEB Last administered on 05/01/16 07:21; Start 04/28/16 at 16:00; Stop 05/01/16 at 15:59; Status DC Sodium Chloride/ Sterile Water (Sodium Chloride 23.4% Inj/Sterile Water For Inj ) 1,009.625 ml @ 84 mls/hr Q12H2M IV Last administered on 04/28/16 13:23; Start 04/28/16 at 13:00; Stop 04/29/16 at 01:01; Status DC Insulin Detemir 70 units 70 units Q12HR SQ Last administered on 05/03/16 08:08 ; Start 04/28/16 at 21:00; Stop 05/05/16 at 17:18; Status DC Vancomycin HCl/ Sodium Chloride (Vancomycin Inj/ NS 250 ml Inj) 262.5 ml @ 250 mls/hr Q12H IV Last administered on 04/29/16 00:18; Start 04/28/16 at 23:00; Stop 04/29/16 at 10:34; Status DC Miscellaneous Information SPECIFIC LAB TO BE ISHAAN... ONCE ONCE XX ; Start at 10:45; Stop 04/30/16 at 10:45; Status DC Clindamycin Phosphate/Sodium Chloride (Cleocin Inj/NS Inj) 104 ml @ 208 mls/hr Q8H IV Last administered on 05/06/16 15:52; Start 04/29/16 at 12:00; Stop at 12:00; Status DC Lidocaine/ Epinephrine (Xylocaine-Epi 1%-1:100,000 Inj) 30 ml STK-MED ONCE .ROUTE ; Start 04/30/16 at 13:00; Stop 04/30/16 at 13:01; Status DC Fentanyl Citrate 250 mcg 250 mcg STK-MED ONCE .ROUTE ; Start 04/30/16 at 15:28; Stop 04/30/16 at 15:29; Status DC Dexmedetomidine HCl (Precedex Inj) 50 ml @ 0 mls/hr TITRATE IV Last administered on 05/02/16 18:32; Start 05/01/16 at 17:00; Stop 05/02/16 at 19:00; Status DC Water (Free Water) 100 ml Q6HR G-TUBE Last administered on 06/09/16 12:00; Start 05/01/16 at 18:00; Stop 06/10/16 at 15:51; Status DC Fentanyl (Duragesic 25 Mcg Patch.72 Hr) 1 patch Q3D TD Last administered on 09:05; Start 05/02/16 at 09:00; Stop 06/19/16 at 08:05; Status DC Miscellaneous Information 1 Q3D T-DERMAL Last administered on 06/13/16 08:23; Start 05/05/16 at 09:00; Stop 06/19/16 at 08:05; Status DC Oxycodone HCl (Roxicodone Intensol Liq) 5 mg Q6H PRN PO PAIN SCALE 7 TO 10 Last administered on 05/23/16 05:54; Start 05/02/16 at 08:45; Stop 06/05/16 at 22 :00; Status DC Acetaminophen/ Hydrocodone Bitart ([place] 5-325 Mg) 1 tab Q6H PO Last administered on 05/06/16 15:52; Start 05/02/16 at 09:00; Stop 05/06/16 at 18:52; Status DC Methylprednisolone Sodium Succinate (SoluMEDROL INJ) 30 mg DAILY IV PUSH Last administered on 05/04/16 07:55; Start 05/03/16 at 09:00; Stop 05/04/16 at 10:09; Status DC Midazolam HCl (Versed Inj) 5 mg STK-MED ONCE .ROUTE Last administered on 16:18; Start 05/02/16 at 16:14; Stop 05/02/16 at 16:15; Status DC Lorazepam (Ativan Inj) 2 mg STK-MED ONCE .ROUTE Last administered on 05/02/16 16:19; Start 05/02/16 at 16:15; Stop 05/02/16 at 16:16; Status DC Midazolam HCl (Versed Inj) 5 mg NOW ONCE IV Last administered on 05/02/16 16: 30; Start 05/02/16 at 16:30; Stop 05/02/16 at 16:31; Status DC Lorazepam 2 mg 2 mg Q4H PRN IVP AGITATION Last administered on 06/13/16 21:22 ; Start 05/02/16 at 16:30; Stop 06/19/16 at 08:05; Status DC Dexmedetomidine HCl/Sodium Chloride (Precedex Inj/NS 250 ml Inj) 260 ml @ 0 mls/ hr TITRATE IV Last administered on 05/04/16 09:53; Start 05/02/16 at 19:01; Stop 05/04/16 at 16:31; Status DC Hydralazine HCl (Apresoline Inj) 10 mg Q4H PRN IV PUSH SBP >165 Last administered on 05/03/16 06:20; Start 05/02/16 at 22:00; Stop 06/05/16 at 20:34; Status DC Propofol (Diprivan 200 Mg/20 ml Inj) 170 mg STK-MED ONCE IV ; Start 05/03/16 at 15:06; Stop 05/03/16 at 15:07; Status DC Quetiapine Fumarate (SEROquel) 25 mg BID PO Last administered on 06/21/16 10: 58; Start 05/04/16 at 09:00; Stop 06/21/16 at 13:25; Status DC Methylprednisolone Sodium Succinate (SoluMEDROL INJ) 20 mg DAILY IV PUSH Last administered on 05/11/16 08:02; Start 05/05/16 at 09:00; Stop 05/12/16 at 09:13 ; Status DC Fentanyl Citrate (fentaNYL INJ) 50 mcg NOW ONCE IV Last administered on 01:03; Start 05/05/16 at 01:00; Stop 05/05/16 at 01:02; Status DC Metoprolol Tartrate (Lopressor Inj) 2.5 mg NOW ONCE IV PUSH Last administered on 05/05/16 04:17; Start 05/05/16 at 04:00; Stop 05/05/16 at 04:01; Status DC Ondansetron HCl (Zofran Inj) 4 mg Q6H PRN IV NAUSEA OR VOMITING; Start 05/05/16 at 06:45 Bumetanide (Bumex Inj) 0.5 mg DAILY IV PUSH Last administered on 05/24/16 09: 25; Start 05/05/16 at 09:00; Stop 05/24/16 at 10:39; Status DC Albuterol/ Ipratropium (Duoneb Neb) 1 ampule TID NEB INH Last administered on 05/09/16 13:05; Start 05/05/16 at 14:00; Stop 05/09/16 at 14:00; Status DC Insulin Detemir (Levemir Inj) 50 units Q12HR SQ Last administered on 05/11/16 20:54; Start 05/05/16 at 21:00; Stop 05/13/16 at 13:50; Status DC Acetaminophen/ Hydrocodone Bitart ([place] 5-325 Mg) 1 tab Q12HR PO Last administered on 06/18/16 19:40; Start 05/06/16 at 21:00; Stop 06/19/16 at 08:05 ; Status DC Propofol 200 mg 200 mg STK-MED ONCE IV ; Start 04/30/16 at 15:12; Stop 05/07/16 at 15:12; Status DC Parenteral Electrolytes (Normosol R Inj) 2,000 ml @ As Directed STK-MED ONCE IV ; Start 04/30/16 at 15:12; Stop 05/07/16 at 15:12; Status DC Potassium Chloride (KCl) 10 meq DAILY PO Last administered on 07/02/16 08:51; Start 05/10/16 at 09:30 Simethicone (Phazyme Chew) 125 mg DAILY PRN PO gas Last administered on 15:00; Start 05/11/16 at 15:00 Insulin Detemir (Levemir Inj) 35 units Q12HR SQ Last administered on 05/30/16 20:26; Start 05/13/16 at 21:00; Stop 06/05/16 at 22:00; Status DC Dextrose (D50w (Vial) Inj) 25 ml UNSCH PRN IV PUSH HYPOGLYCEMIA-SEE COMMENTS; Start 05/13/16 at 14:00; Stop 05/31/16 at 21:54; Status DC Glucagon (Glucagon Inj) 1 mg UNSCH PRN OTHER HYPOGLYCEMIA-SEE COMMENTS; Start 05/13/16 at 14:00; Stop 05/31/16 at 21:54; Status DC Insulin Human Regular (NovoLIN R SUPPLEMENTAL SCALE) 1 ACHS SLIDING SCALE SQ Last administered on 05/25/16 06:19; Start 05/13/16 at 16:00; Stop 05/25/16 at 12:14; Status DC Silver Sulfadiazine (Silvadene 1% Cream (400 Gm)) 1 applic DAILY TOPICAL Last administered on 07/02/16 08:51; Start 05/16/16 at 11:00 Pregabalin (Lyrica) 25 mg DAILY PO Last administered on 05/19/16 08:22; Start 05/17/16 at 11:45; Stop 05/20/16 at 10:29; Status DC Ipratropium [place] (Atrovent Neb) 0.5 mg Q2HR NEB PRN NEB wheezing Last administered on 05/27/16 00:28; Start 05/17/16 at 21:00 Diltiazem HCl (Cardizem) 30 mg ONCE ONCE PO Last administered on 05/17/16 22: 44; Start 05/17/16 at 22:45; Stop 05/17/16 at 22:46; Status DC Potassium Chloride (KCl) 40 meq ONCE ONCE PO Last administered on 05/17/16 22 :44; Start 05/17/16 at 22:45; Stop 05/17/16 at 22:46; Status DC Pregabalin (Lyrica) 50 mg DAILY PO Last administered on 06/18/16 08:33; Start 05/21/16 at 09:00; Stop 06/19/16 at 08:05; Status DC Baclofen (Lioresal) 10 mg Q12HR PO Last administered on 06/18/16 19:39; Start 05/24/16 at 10:45; Stop 06/19/16 at 08:05; Status DC Bumetanide (Bumetanide) 0.5 mg ONCE ONCE PO Last administered on 05/25/16 09: 21; Start 05/25/16 at 09:00; Stop 05/25/16 at 09:01; Status DC Miscellaneous (Pill Splitter) 1 ea UNSCH PRN OTHER SEE LABEL COMMENTS; Start at 10:45 Pantoprazole Sodium (Protonix) 40 mg DAILY PO Last administered on 07/03/16 09: 33; Start 05/26/16 at 09:00 Insulin Human Regular (NovoLIN R SUPPLEMENTAL SCALE) 1 Q12HR SQ Last administered on 05/26/16 22:40; Start 05/25/16 at 19:00; Stop 05/27/16 at 08:44 ; Status DC Metoclopramide HCl (Reglan) 10 mg Q8HR G-TUBE Last administered on 06/02/16 14: 43; Start 05/25/16 at 14:00; Stop 06/02/16 at 14:49; Status DC Albuterol Sulfate 2.5 mg 2.5 mg ONCE ONCE NEB Last administered on 05/27/16 00:45; Start 05/27/16 at 00:45; Stop 05/27/16 at 00:46; Status DC Sodium Chloride (NS 1000 ml Inj) 999 ml @ 0 mls/hr BOLUS ONCE IV Last administered on 05/27/16 02:01; Start 05/27/16 at 02:00; Stop 05/27/16 at 04:31 ; Status DC Adenosine (Adenocard Inj) 6 mg NOW ONCE IV PUSH Last administered on 02:01; Start 05/27/16 at 02:01; Stop 05/27/16 at 04:31; Status DC Adenosine (Adenocard Inj) 12 mg NOW ONCE IV PUSH Last administered on 02:11; Start 05/27/16 at 02:11; Stop 05/27/16 at 04:31; Status DC Insulin Human Regular 1 1 Q4HR SQ ; Start 05/27/16 at 12:00; Stop 05/28/16 at 01 :44; Status DC Sodium Chloride (NS 1000 ml Inj) 1,000 ml @ 100 mls/hr Q10H IV Last administered on 05/27/16 19:00; Start 05/27/16 at 09:00; Stop 05/28/16 at 04:59 ; Status DC Albuterol/ Ipratropium (Duoneb Neb) 1 ampule Q6HR NEB NEB Last administered on 05/31/16 07:29; Start 05/27/16 at 10:00; Stop 05/31/16 at 10:00; Status DC Insulin Human Regular (NovoLIN R SUPPLEMENTAL SCALE) 1 BID@07,15 SQ Last administered on 05/28/16 14:34; Start 05/28/16 at 07:00; Stop 05/31/16 at 21:53 ; Status DC Adenosine (Adenocard Inj) 6 mg STK-MED ONCE IV PUSH ; Start 05/27/16 at 05:00; Stop 05/28/16 at 12:54; Status DC Dextrose (D50w (Vial) Inj) 25 ml UNSCH PRN IV PUSH HYPOGLYCEMIA-SEE COMMENTS; Start 05/31/16 at 22:00 Glucagon (Glucagon Inj) 1 mg UNSCH PRN OTHER HYPOGLYCEMIA-SEE COMMENTS; Start 05/31/16 at 22:00; Stop 06/19/16 at 08:05; Status DC Insulin Aspart (NovoLOG SUPPLEMENTAL SCALE) 1 ACHS SLIDING SCALE SQ Last administered on 06/12/16 18:00; Start 06/01/16 at 07:00; Stop 06/22/16 at 16:52 ; Status DC Albuterol/ Ipratropium (Duoneb Neb) 1 ampule Q6HR NEB NEB Last administered on 06/06/16 08:29; Start 06/02/16 at 16:00; Stop 06/06/16 at 10:56; Status DC Albuterol/ Ipratropium (Duoneb Neb) 1 ampule Q2HR NEB PRN NEB dyspnea Last administered on 06/21/16 20:16; Start 06/02/16 at 15:00 Insulin Detemir 5 units 5 units HS SQ Last administered on 07/03/16 20:13; Start 06/06/16 at 21:00 Propofol (Diprivan 1000 Mg/100ml Inj) 100 ml @ As Directed STK-MED ONCE .ROUTE ; Start 06/12/16 at 15:40; Stop 06/12/16 at 15:41; Status DC Midazolam HCl (Versed Inj) 5 mg STK-MED ONCE .ROUTE ; Start 06/12/16 at 15:41; Stop 06/12/16 at 15:42; Status DC Chlorhexidine Gluconate 15 ml 15 ml BID@08,20 MT ; Start 06/12/16 at 20:00; Stop 06/12/16 at 20:00; Status DC Propofol 100 ml @ 0 mls/hr TITRATE IV Last administered on 06/13/16 17:09; Start 06/12/16 at 17:45; Stop 06/19/16 at 08:05; Status DC Fentanyl Citrate 250 ml @ 0 mls/hr TITRATE IV Last administered on 06/12/16 20 :08; Start 06/12/16 at 17:45; Stop 06/19/16 at 08:06; Status DC Levofloxacin/ Dextrose 150 ml @ 100 mls/hr Q24H IV Last administered on 13:05; Start 06/13/16 at 14:00; Stop 06/19/16 at 10:06; Status DC Sodium Chloride 1,000 ml @ 999 mls/hr BOLUS ONCE IV Last administered on 06/13 14:43; Start 06/13/16 at 13:30; Stop 06/13/16 at 14:30; Status DC Sodium Chloride 1,000 ml @ 999 mls/hr BOLUS ONCE IV Last administered on 06/13 14:43; Start 06/13/16 at 13:30; Stop 06/13/16 at 14:30; Status DC Potassium Chloride 10 meq/ Sodium Chloride 1,005 ml @ 75 mls/hr [id number] IV Last administered on 06/22/16 00:24; Start 06/13/16 at 15:00; Stop 06/22/16 at 18:02; Status DC Sodium Chloride 1,000 ml @ 0 mls/hr ONCE ONCE IV Last administered on 08:48; Start 06/15/16 at 07:30; Stop 06/15/16 at 07:31; Status DC Cefazolin Sodium/ Dextrose 50 ml @ 100 mls/hr Q8H IV Last administered on 06/15 12:48; Start 06/15/16 at 12:00; Stop 06/15/16 at 13:13; Status DC Vancomycin HCl 1500 mg/Sodium Chloride 515 ml @ 257.5 mls/ hr ONCE ONCE IV Last administered on 06/15/16 15:12; Start 06/15/16 at 14:00; Stop 06/15/16 at 15:59; Status DC Pharmacy Profile Note 0 ml @ 0 mls/hr UNSCH OTHER ; Start 06/15/16 at 13:00; Stop 06/19/16 at 10:06; Status DC Aztreonam 1000 mg/ Sodium Chloride 100 ml @ 200 mls/hr Q8H IV Last administered on 06/19/16 05:21; Start 06/15/16 at 13:00; Stop 06/19/16 at 10:06 ; Status DC Vancomycin HCl/ Sodium Chloride (Vancomycin Inj/ NS 500 ml Inj) 515 ml @ 257.5 mls/ hr Q12H IV Last administered on 06/17/16 02:49; Start 06/16/16 at 02:00; Stop 06/17/16 at 08:43; Status DC Miscellaneous Information SPECIFIC LAB TO BE DRAWN:VANCO TROUGH DATE TO BE DR... ONCE ONCE .XX Last administered on 06/17/16 01:45; Start 06/17/16 at 01 :45; Stop 06/17/16 at 01:46; Status DC Vancomycin HCl/ Sodium Chloride (Vancomycin Inj/ NS 500 ml Inj) 517.5 ml @ 257.5 mls/ hr Q12H IV Last administered on 06/19/16 03:33; Start 06/17/16 at 14:00; Stop 06/19/16 at 08:51; Status DC Miscellaneous Information SPECIFIC LAB TO BE DRAWN:VANCOMY... ONCE ONCE .XX Last administered on 06/19/16 02:04; Start 06/19/16 at 01:45; Stop 06/19/16 at 01:46; Status DC Miscellaneous Information D/C ICU ELECTROLYTE ORDERS... UNSCH PRN .XX SEE DOSE INSTRUCTIONS; Start 06/17/16 at 10:30; Status Cancel Miscellaneous Information ICU - CALL ORDERING PHYSIC... UNSCH PRN .XX SEE DOSE INSTRUCTIONS; Start 06/17/16 at 10:30; Status Cancel Potassium Chloride (KCl 40 Meq Premix Inj) 100 ml @ 25 mls/hr UNSCH PRN IV ELECTROLYTE REPLACEMENT Last administered on 06/17/16 17:40; Start 06/17/16 at 10:30 Potassium Bicarb/ Potassium Chloride 50 meq 50 meq UNSCH PRN PO ELECTROLYTE REPLACEMENT; Start 06/17/16 at 10:30; Status Cancel Potassium Chloride 100 ml @ 50 mls/hr UNSCH PRN IV ELECTROLYTE REPLACEMENT; Start 06/17/16 at 10:30; Status Cancel Magnesium Sulfate 4 gm/Sodium Chloride 108 ml @ 54 mls/hr UNSCH PRN IV ELECTROLYTE REPLACEMENT; Start 06/17/16 at 10:30; Status Cancel Magnesium Sulfate/ Sodium Chloride (Magnesium Sulfate Inj/NS Inj) 104 ml @ 52 mls/hr UNSCH PRN IV ELECTROLYTE REPLACEMENT; Start 06/17/16 at 10:30; Status Cancel Magnesium Oxide 800 mg 800 mg UNSCH PRN PO ELECTROLYTE REPLACEMENT; Start 06/17 at 10:30; Status Cancel Sodium Phosphate/ Sodium Chloride (Sodium Phosphate Inj/NS 250 ml Inj) 260 ml @ 43.333 mls/ hr UNSCH PRN IV ELECTROLYTE REPLACEMENT; Start 06/17/16 at 10:30 ; Status Cancel Potassium Phosphate 2000 mg 2,000 mg UNSCH PRN PO ELECTROLYTE REPLACEMENT; Start 06/17/16 at 10:30; Status Cancel Potassium Phosphate/Sodium Chloride (Potassium Phosphate Inj/NS 250 ml Inj) 260 ml @ 43.333 mls/ hr UNSCH PRN IV ELECTROLYTE REPLACEMENT; Start 06/17/16 at 10 :30; Status Cancel Baclofen (Lioresal) 5 mg Q12HR PO Last administered on 06/21/16 10:58; Start 06/19/16 at 09:00; Stop 06/21/16 at 13:25; Status DC Pregabalin (Lyrica) 150 mg DAILY PO Last administered on 06/21/16 10:58; Start 06/19/16 at 09:00; Stop 06/21/16 at 13:25; Status DC Tizanidine HCl (Zanaflex) 2 mg Q12HR PO Last administered on 06/21/16 10:58; Start 06/19/16 at 09:00; Stop 06/21/16 at 13:25; Status DC Oxycodone HCl 2.5 mg 2.5 mg Q6H PRN PO pain 1-7 Last administered on 06/24/16 13:00; Start 06/19/16 at 08:15; Stop 06/24/16 at 16:18; Status DC Vancomycin HCl/ Sodium Chloride (Vancomycin Inj/ NS 500 ml Inj) 520 ml @ 257.5 mls/ hr Q12H IV ; Start 06/19/16 at 14:00; Stop 06/19/16 at 14:00; Status DC Miscellaneous Information SPECIFIC LAB TO BE DRAWN:VANCOMYCIN TROUGH DATE TO... ONCE ONCE .XX ; Start 06/21/16 at 01:45; Stop 06/21/16 at 01:45; Status DC Cefepime HCl 2000 mg/Sodium Chloride 100 ml @ 200 mls/hr Q12H IV Last administered on 06/26/16 00:00; Start 06/19/16 at 12:00; Stop 06/26/16 at 10:31 ; Status DC Norepinephrine Bitartrate 250 ml @ As Directed STK-MED ONCE IV Last administered on 06/19/16 16:09; Start 06/19/16 at 13:51; Stop 06/19/16 at 13:52 ; Status DC Sodium Chloride 1,000 ml @ 0 mls/hr BOLUS STAT IV ; Start 06/19/16 at 17:58; Stop 06/19/16 at 17:59; Status DC Fluconazole/ Sodium Chloride 200 ml @ 100 mls/hr Q24H IV Last administered on 06/22/16 09:12; Start 06/20/16 at 11:00; Stop 06/22/16 at 14:07; Status DC Vancomycin HCl 1500 mg/Sodium Chloride 515 ml @ 257.5 mls/ hr ONCE ONCE IV ; Start 06/20/16 at 11:00; Stop 06/20/16 at 11:26; Status DC Pharmacy Profile Note 0 ml @ 0 mls/hr UNSCH OTHER ; Start 06/20/16 at 11:00; Stop 06/22/16 at 14:07; Status DC Vancomycin HCl/ Sodium Chloride (Vancomycin Inj/ NS 500 ml Inj) 520 ml @ 250 mls/hr Q12H IV Last administered on 06/22/16 11:46; Start 06/20/16 at 13:00; Stop 06/22/16 at 14:07; Status DC Miscellaneous Information SPECIFIC LAB TO BE DRAWN:VANCO TROUGH DATE TO... ONCE ONCE .XX Last administered on 06/22/16 00:45; Start 06/22/16 at 00:45; Stop 06/22/16 at 00:46; Status DC Baclofen (Lioresal) 5 mg DAILY PO Last administered on 07/03/16 09:34; Start at 09:00 Pregabalin (Lyrica) 75 mg Q12HR PO Last administered on 07/03/16 20:12; Start 06/22/16 at 09:00 Miscellaneous Information SPECIFIC LAB TO BE ... ONCE ONCE .XX ; Start 06/23 at 12:45; Stop 06/23/16 at 12:45; Status DC Oxycodone HCl (Roxicodone) 2.5 mg Q4H PRN PO pain 1-6 Last administered on 23:30; Start 06/24/16 at 17:00 Date of Removal: Jun 29, 2016 A/P Assessment and Plan A/P Transaminitis. LFT improving. Abd pain, resolved Follow trend of LFT. Liver US shows fatty liver. Small stones or tumefactive sludge adherent to one of the gallbladder arcos. 3. Splenomegaly. Avoid liver toxicity drugs. Hep panel negative Diabetes mellitus Currently on levemir 5 units HS. Diabetic Neuropathy: patient c/o left leg tingling/pins and needle on the left leg and seem. On lyrica to 50 mg po daily, improving. - No complains on Baclofen- improved PT ff Acute hypoxemic respiratory failure on T piece tolerates well [facility] History of staph aureus pneumonia/HCAP ARDS Currently on T-Piece, and tolerating well Pulm following, appreciate rec's. Trach collar with oxygen support to keep sat >92%. 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 Optifoam in place. Apply bacitracin. Wound cultures with normal sherine. Consult wound care, discussed with Nica from wound care, appreciate recommendations. Cleanse wound with NS and apply nonadhesive foam ag dressing over wound and change every other day and PRN for saturation or dislodgement. on silvadene cream daily Mild MR/TR. Monitor HR and BP keep MAP>65mmHg 2-D echo 03/26 EF 60%. No regional wall motion abnormality. Mild MR/TR. Hypokalemia-resolved Hypernatremia-resolved Hypophosphatemia-resolved Monitor renal function, and electrolytes periodically. Constipation-resolved Moderate protein calorie malnutrition Nausea and vomiting- resolved On tube feeding. Protonix 40mg daily On Reglan 10mg Q8, Senna and Colace twice a day.Discontinue MiraLAX twice a day and lactulose 4 times a day. PEG tube placement- 05/03- tolerating TF Zofran 4 mg every 6 hours when necessary Likely SERENITY Toxic metabolic encephalopathy-resolved Continue with pain control. Seroquel 25mg BID initiated 05/04 Acetaminophen for fever Staph aureus pneumonia- PSAE,MSSA Possible staph bacteremia Pertinent culture 04/27 - pansensitive staph aureus 04/27 blood cultures 2 negative 04/25 - urine -no growth 04/19 - blood cultures 2 out of 4 - staph aureus 04/19 - sputum - staph aureus 04/08 - sputum - staph aureus 04/03 - sputum - staph aureus 03/30 - sputum- -staph aureus 03/27 - sputum - staph aureus 03/26 - blood - staph hominis S/P On vancomycin 2 g IV every 12 are since 04/19 - 04/29 Azactam 04/27 through Finished clindamycin ID specialist consulted, Dr. Painter, appreciate recommendations. Finished course of abx- with Cefepime 06/25 ID specialist signed off. Leukocytosis Monitor CBC/coags periodically. Morbid obesity BMI of 51.8 Weight loss encouraged. DVT, GI prophylaxis -Bilateral lower extremity SCDs. PEG Protonix 40 mg daily. REglan 10 mg /PEG q 8 Lovenox 40 mg sq BID Left shoulder pain- - limited range of motion- Xrays negative for dislocation. PT consulted. Discharge Planning needs SNF placement. dc planning in progress. Mg Stearns MD July 04, 2016 08:48
[2016-07-04] MEDS: LACTOBACILLUS ACIDOPHILUS TAB PO SCH ×3 (08:49→18:01)
[2016-07-04] MEDS: POTASSIUM CHLORIDE 10 MEQ CONTROLLED RELEASE TAB PO SCH (08:49)
[2016-07-04] MEDS: PREGABALIN 75 MG CAP PO SCH ×2 (08:50→20:42)
[2016-07-04] MEDS: POLYETHYLENE GLYCOL 17 GM PKG PO SCH ×2 (08:50→20:43)
[2016-07-04] MEDS: BACLOFEN 10 MG TAB PO SCH (08:50)
[2016-07-04] MEDS: PANTOPRAZOLE SOD 40 MG DELAYED RELEASE TAB PO SCH (08:51)
[2016-07-04] MEDS: SENNOSIDES SYRUP 8.8 MG/5 ML CUP PO/TUBE SCH ×2 (08:51→20:43)
[2016-07-04] MEDS: BETAMETHASONE/CLOTRIMAZOLE CREAM 15 GM TOPICAL SCH ×2 (08:52→20:44)
[2016-07-04] MEDS: NYSTATIN 100,000 U/GM PWD 15 GM BTL TOPICAL SCH ×2 (08:52→20:44)
[2016-07-04] MEDS: SILVER SULFADIAZINE 1% CR 400 GM JAR TOPICAL SCH (08:52)
--- NOTE | 2016-07-04 08:54 | HHI.PR ---
Subjective Remarks respiratory failure DOING WELL , NOW ON TTUBE Objective Vital Signs Date Time Temp Pulse Resp B/P Pulse Ox O2 Delivery O2 Flow Rate FiO2 07/04/16 08:00 98.2 95 20 114/59 94 07/04/16 04:00 98.7 72 20 117/66 95 07/04/16 00:00 99.0 99 20 110/60 95 07/03/16 20:00 99.0 100 18 96/49 93 07/03/16 20:00 T-Piece 6.00 35 07/03/16 20:00 102 07/03/16 17:44 94 T-piece 6.00 35 07/03/16 16:00 98.4 86 18 102/58 94 07/03/16 12:00 98.2 92 18 92/55 92 07/03/16 11:32 93 T-piece 6.00 35 I/O 07/03/16 07/03/16 07/03/16 07/04/16 07/04/16 07/04/16 07:00 15:00 23:00 07:00 15:00 23:00 Intake Total 0 ml 720 ml 480 ml Output Total 500 ml 500 ml 600 ml Balance -500 ml 220 ml -120 ml Intake Oral 0 ml 720 ml 480 ml Output Urine Total 500 ml 500 ml 600 ml # Bowel Movements 0 1 Result Diagram: 07/01/16 0753 07/01/16 0753 Objective Remarks GENERAL: SKIN: Warm and dry.on vent support HEAD: Atraumatic. Normocephalic. EYES: Pupils equal and round. No scleral icterus. No injection or drainage. ENT: No nasal bleeding or discharge. Mucous membranes pink and moist. NECK: Trachea midline. No JVD. CARDIOVASCULAR: Regular rate and rhythm. RESPIRATORY: No accessory muscle use. Clear to auscultation. Breath sounds equal bilaterally. GASTROINTESTINAL: Abdomen soft, non-tender, nondistended. Hepatic and splenic margins not palpable. MUSCULOSKELETAL: Extremities without clubbing, cyanosis, or edema. No obvious deformities. NEUROLOGICAL: Awake and alert. No obvious cranial nerve deficits. Motor grossly within normal limits. Five out of 5 muscle strength in the arms and legs. Normal speech. PSYCHIATRIC: Appropriate mood and affect; insight and judgment normal. Assessment and Plan Assessment and Plan respiratory failure morbid obesity plan O2 NEEDED pulm toilet prognosis guarded Orlando Perry MD July 04, 2016 08:54
[2016-07-04] MEDS: INSULIN DETEMIR 100 UNITS/ML VIAL SQ SCH (20:43)
[2016-07-05] VITALS (8 sets, daily range): BP systolic 94–110; BP diastolic 48–65; PULSE 85–125; RESP 16–20; TEMP 98–98.7; O2SAT 92–96
[2016-07-05] MEDS: ARTIFICIAL TEARS OPTH SOLN 15 ML BTL EACH EYE SCH ×6 (02:00→20:40)
[2016-07-05] MEDS: ENOXAPARIN SODIUM 40 MG/0.4 ML SYRINGE SQ SCH ×2 (05:02→16:35)
[2016-07-05] MEDS: CHLORHEXIDINE 0.12% (ORAL KIT) 15 ML CUP MT SCH ×2 (08:00→19:56)
[2016-07-05] MEDS: SENNOSIDES SYRUP 8.8 MG/5 ML CUP PO/TUBE SCH ×2 (09:00→19:55)
[2016-07-05] MEDS: SODIUM CHLORIDE 0.9% FLUSH 5 ML FLUSH IVF SCH (09:00)
[2016-07-05] MEDS: POLYETHYLENE GLYCOL 17 GM PKG PO SCH ×2 (09:00→19:55)
[2016-07-05] MEDS: DOCUSATE SODIUM 100 MG/10 ML UDC PO SCH ×2 (09:00→19:55)
--- NOTE | 2016-07-05 09:44 | HHI.PR ---
Subjective Remarks in no distress. no fever. d/w the RN and no acute issues over night. Objective Vitals Vital Signs Date Time Temp Pulse Resp B/P Pulse Ox O2 Delivery O2 Flow Rate FiO2 07/05/16 08:00 98.0 88 20 107/61 92 07/05/16 04:30 98.2 85 16 94/48 94 07/04/16 23:47 98.0 91 18 114/59 93 07/04/16 21:31 93 T-piece 5.00 40 07/04/16 20:15 98.9 102 18 105/57 93 07/04/16 20:00 97 07/04/16 20:00 T-Piece 6.00 35 07/04/16 16:00 98.0 82 20 139/72 100 07/04/16 12:00 98.0 99 20 102/62 94 I/O 07/04/16 07/04/16 07/04/16 07/05/16 07/05/16 07/05/16 07:00 15:00 23:00 07:00 15:00 23:00 Intake Total 480 ml 720 ml 0 ml Output Total 600 ml 225 ml 300 ml Balance -120 ml 495 ml -300 ml Intake Oral 480 ml 720 ml 0 ml Output Urine Total 600 ml 225 ml 300 ml # Bowel Movements 0 0 Result Diagram: 07/01/16 0753 07/01/16 0753 Imaging Last Impressions Chest X-Ray 06/30/16 0600 Signed Impressions: Service Date/Time: Thursday, June 30, 2016 06:07 - CONCLUSION: No significant change. Mild bilateral perihilar and basilar consolidation again noted. Ubaldo Ortiz MD Shoulder X-Ray 06/28/16 0000 Signed Impressions: Service Date/Time: June 15:12 - CONCLUSION: 1. Limited but negative examination of the shoulder. Kyaw Rojo MD Abdomen X-Ray 06/19/16 0000 Signed Impressions: Service Date/Time: Sunday, June 19, 2016 10:43 - CONCLUSION: Gastric tube tip does not cross the diaphragm and the side port is approximately 8 cm above the diaphragm. Chano Goodwin MD Lower Extremity Ultrasound 06/04/16 0000 Signed Impressions: Service Date/Time: Saturday, June 04, 2016 14:54 - CONCLUSION: 1. No DVT identified. Dc Barton MD Liver Ultrasound 05/09/16 0000 Signed Impressions: Service Date/Time: Monday, May 09, 2016 22:28 - CONCLUSION: 1. Enlarged, fatty liver. 2. Small stones or tumefactive sludge adherent to one of the gallbladder arcos. 3. Splenomegaly. 4. Pancreas is obscured by overlying bowel gas and patient's body habitus. Arthur Kennedy MD Chest CT 03/28/16 0836 Signed Impressions: Service Date/Time: Monday, March 28, 2016 09:57 - CONCLUSION: Development areas of air bronchograms and consolidation more prominent in the right and left posterior basilar segments of the lower lobes. ET tube above the chanelle. Bernard Hartman MD CT Angiography 03/24/16 1121 Signed Impressions: Service Date/Time: Thursday, March 24, 2016 12:47 - CONCLUSION: 1. There is respiratory motion artifact but no PE is identified through most of the segmental level pulmonary arteries. 2. Mildly enlarged main pulmonary artery may indicate pulmonary arterial hypertension. 3. 11 mm left lower lobe noncalcified pulmonary nodule. Suggest correlation with any prior imaging studies that could confirm longer-term stability. If none are available consider short-term followup noncontrast chest CT in approximately 3 months. Ubaldo Rodas MD Objective Remarks GENERAL: in no apparent distress. Neck; trach in place CARDIOVASCULAR: Regular rate and regular rhythm without murmurs, gallops, or rubs. RESPIRATORY: Clear to auscultation. Breath sounds equal bilaterally. No wheezes , rales, or rhonchi. GASTROINTESTINAL: Abdomen soft, non-tender, nondistended. Normal, active bowel sounds MUSCULOSKELETAL: Extremities without clubbing, cyanosis, or edema. NEURO: Alert & Oriented x4 to person, place, time, situation. Moves all ext x4 Procedures 04/30/16 - tracheostomy by Dr. Reyes 05/03/16 - EGD with PEG placement by Dr. Faith 06/09/16 - PEG removal 06/21/16- repeat tracheostomy by Dr. Cuellar Medications and IVs Current Medications IV Flush (NS Flush) 2 ml UNSCH PRN IVF FLUSH AFTER USING IV ACCESS Last administered on 05/23/16t 05:55; Start 03/24/16 at 11:30 Iohexol (Omnipaque 350 Inj) 89 ml STK-MED ONCE IV Last administered on 13:08; Start 03/24/16 at 13:08; Stop 03/24/16 at 13:09; Status DC Albuterol/ Ipratropium (Duoneb Neb) 1 ampule Q6HR NEB NEB Last administered on 04/04/16 07:42; Start 03/24/16 at 17:00; Stop 04/04/16 at 07:43; Status DC Dextrose (D50w (Vial) Inj) 25 ml UNSCH PRN IV PUSH HYPOGLYCEMIA-SEE COMMENTS; Start 03/24/16 at 16:30; Stop 03/31/16 at 11:22; Status DC Glucagon (Glucagon Inj) 1 mg UNSCH PRN OTHER HYPOGLYCEMIA-SEE COMMENTS; Start 03/24/16 at 16:30; Stop 03/31/16 at 11:22; Status DC Insulin Human Regular (NovoLIN R SUPPLEMENTAL SCALE) 1 ACHS SLIDING SCALE SQ Last administered on 03/31/16 06:09; Start 03/24/16 at 21:00; Stop 03/31/16 at 11:16; Status DC Albuterol/ Ipratropium (Duoneb Neb) 1 ampule Q2HR NEB PRN NEB WHEEZING AND SOB Last administered on 04/20/16 08:10; Start 03/24/16 at 16:45; Stop 04/23/16 at 13:22; Status DC Enoxaparin Sodium (Lovenox Inj) 40 mg Q24H SQ Last administered on 03/25/16 17 :00; Start 03/24/16 at 17:00; Stop 03/26/16 at 16:40; Status DC Pantoprazole Sodium (Protonix) 40 mg DAILY PO Last administered on 03/26/16 08 :35; Start 03/25/16 at 09:00; Stop 03/26/16 at 16:40; Status DC Influenza Virus Vaccine (Flu (Quadrivalent) Vaccine Inj) 0.5 ml ONCE ONCE IM Last administered on 03/25/16 08:57; Start 03/25/16 at 10:00; Stop 03/25/16 at 10:01; Status DC Chlorhexidine Gluconate (Chlorhexidine 2% Cloth) 3 pack DAILY@04 TOP Last administered on 03/29/16 03:42; Start 03/25/16 at 04:00; Stop 03/29/16 at 04:01 ; Status DC Chlorhexidine Gluconate (Chlorhexidine 2% Cloth) 3 pack UNSCH PRN TOP HYGIENIC CARE; Start 03/24/16 at 19:15; Stop 03/29/16 at 19:07; Status DC Tiotropium [place] (Spiriva Inh) 18 mcg DAILY INH Last administered on 08:36; Start 03/25/16 at 13:45; Stop 05/05/16 at 13:25; Status DC Metformin HCl (Glucophage) 500 mg BIDPC PO Last administered on 03/28/16 08:18 ; Start 03/26/16 at 09:00; Stop 04/07/16 at 10:16; Status DC Betamethasone/ Clotrimazole (Lotrisone Cream) 1 applic Q12HR TOPICAL Last administered on 07/04/16 08:52; Start 03/26/16 at 09:00 Methylprednisolone Sodium Succinate 60 mg 60 mg Q12HR IV PUSH Last administered on 03/28/16 08:17; Start 03/26/16 at 13:30; Stop 03/28/16 at 10:25 ; Status DC Propofol (Diprivan 1000 Mg/100ml Inj) 100 ml @ As Directed STK-MED ONCE .ROUTE ; Start 03/26/16 at 13:16; Stop 03/26/16 at 13:17; Status DC Etomidate 40 mg 40 mg STK-MED ONCE .ROUTE ; Start 03/26/16 at 13:20; Stop at 13:21; Status DC Propofol 100 ml @ 0 mls/hr TITRATE IV Last administered on 04/15/16 06:35; Start 03/26/16 at 14:30; Stop 05/02/16 at 08:34; Status DC Fentanyl Citrate (fentaNYL DRIP) 250 ml @ 0 mls/hr TITRATE IV Last administered on 05/02/16 15:59; Start 03/26/16 at 14:30; Stop 05/02/16 at 19:46; Status DC Rocuronium [place] (Zemuron Inj) 50 mg STK-MED ONCE .ROUTE ; Start 03/26/16 at 15:38; Stop 03/26/16 at 15:39; Status DC Rocuronium [place] (Zemuron Inj) 50 mg STK-MED ONCE .ROUTE ; Start 03/26/16 at 15:40; Stop 03/26/16 at 15:41; Status DC Furosemide (Lasix Inj) 40 mg ONCE ONCE IV PUSH Last administered on 03/26/16 18:00; Start 03/26/16 at 16:45; Stop 03/26/16 at 17:08; Status DC Furosemide (Lasix Inj) 20 mg BID@09,18 IV PUSH Last administered on 03/29/16 08:06; Start 03/26/16 at 18:00; Stop 03/29/16 at 08:43; Status DC Pantoprazole Sodium (Protonix Inj) 40 mg Q24H IV PUSH Last administered on 05/24 18:00; Start 03/26/16 at 18:00; Stop 05/25/16 at 12:09; Status DC Enoxaparin Sodium 40 mg 40 mg Q12H SQ Last administered on 07/05/16 05:02; Start 03/26/16 at 18:00 Aztreonam 2000 mg/ Sodium Chloride 100 ml @ 200 mls/hr Q8H IV Last administered on 03/31/16 10:23; Start 03/26/16 at 18:00; Stop 03/31/16 at 13:55 ; Status DC Potassium Chloride 100 ml @ 50 mls/hr Q2H PRN IV For Potassium 2.8 - 3.2 mEq/ L Last administered on 05/03/16 23:31; Start 03/26/16 at 16:45; Stop 05/17/16 at 17:12; Status DC Potassium Chloride (KCl 20 Meq Premix Inj) 100 ml @ 50 mls/hr Q2H PRN IV For Potassium 2.8 - 3.2 mEq/L Last administered on 05/07/16 23:26; Start 03/26/16 at 16:45; Stop 05/17/16 at 17:12; Status DC Potassium Chloride 40 meq 40 meq UNSCH PRN PO/TUBE For Potassium 3.3 - 3.5 mEq/ L Last administered on 05/17/16 09:28; Start 03/26/16 at 16:45; Stop 05/17/16 at 17:12; Status DC Potassium Chloride 100 ml @ 25 mls/hr UNSCH PRN IV For Potassium 3.3 - 3.5 mEq /L Last administered on 04/20/16 09:17; Start 03/26/16 at 16:45; Stop 05/17/16 at 17:12; Status DC Potassium Chloride 100 ml @ 50 mls/hr Q2H PRN IV For Potassium 3.3 - 3.5 mEq/ L Last administered on 05/08/16 11:22; Start 03/26/16 at 16:45; Stop 05/17/16 at 17:12; Status DC Magnesium Sulfate/ Sodium Chloride (Magnesium Sulfate Inj/NS Inj) 100 ml @ 50 mls/hr UNSCH PRN IV For Magnesium 0.9 - 1.1 mg/dL; Start 03/26/16 at 16:45; Stop 05/17/16 at 17:12; Status DC Magnesium Oxide 800 mg 800 mg UNSCH PRN PO For Magnesium 1.2 - 1.6 mg/dL; Start 03/26/16 at 16:45; Stop 05/17/16 at 17:12; Status DC Magnesium Sulfate/ Sodium Chloride (Magnesium Sulfate Inj/NS Inj) 100 ml @ 50 mls/hr UNSCH PRN IV For Magnesium 1.2 - 1.6 mg/dL; Start 03/26/16 at 16:45; Stop 05/17/16 at 17:12; Status DC Potassium Phosphate 2000 mg 2,000 mg Q4H PRN PO For Phosphorus < 2.5 mg/dL Last administered on 04/01/16 05:08; Start 03/26/16 at 16:45; Stop 05/17/16 at 17:12; Status DC Sodium Phosphate/ Sodium Chloride (Sodium Phosphate Inj/NS 250 ml Inj) 250 ml @ 42 mls/hr UNSCH PRN IV For Phosphorus < 2.5 mg/dL Last administered on 14:19; Start 03/26/16 at 16:45; Stop 05/17/16 at 17:12; Status DC Potassium Chloride (KCl 40 Meq/30 ml Liq) 40 meq UNSCH PRN PO/TUBE SEE LABEL COMMENTS; Start 03/26/16 at 16:45; Stop 05/17/16 at 17:12; Status DC Potassium Phosphate 2000 mg 2,000 mg UNSCH PRN PO/TUBE SEE LABEL COMMENTS; Start 03/26/16 at 16:45; Stop 05/17/16 at 17:12; Status DC Potassium Phosphate/Sodium Chloride (Potassium Phosphate Inj/NS 250 ml Inj) 260 ml @ 42 mls/hr UNSCH PRN IV SEE LABEL COMMENTS Last administered on 05/03/16 08:23; Start 03/26/16 at 16:45; Stop 05/17/16 at 17:12; Status DC Potassium Chloride 40 meq 40 meq DAILY PO Last administered on 04/01/16 09:18 ; Start 03/26/16 at 18:00; Stop 04/02/16 at 07:20; Status DC Metronidazole (Flagyl 500 Mg Inj) 100 ml @ 100 mls/hr Q8H IV Last administered on 04/10/16 07:44; Start 03/27/16 at 08:00; Stop 04/10/16 at 13:30; Status DC Protein 1 pack 1 pack TID G-TUBE Last administered on 07/04/16 18:01; Start at 09:00 Vancomycin HCl 1500 mg/Sodium Chloride 515 ml @ 257.5 mls/ hr ONCE ONCE IV Last administered on 03/27/16 10:21; Start 03/27/16 at 09:00; Stop 03/27/16 at 10:59; Status DC Pharmacy Profile Note 0 ml @ 0 mls/hr UNSCH OTHER ; Start 03/27/16 at 08:00; Stop 03/31/16 at 13:55; Status DC Vancomycin HCl/ Sodium Chloride (Vancomycin Inj/ NS 500 ml Inj) 520 ml @ 260 mls/hr Q24H IV Last administered on 03/30/16 04:04; Start 03/28/16 at 04:00; Stop 03/30/16 at 11:11; Status DC Miscellaneous Information SPECIFIC LAB TO BE ISHAAN... ONCE ONCE XX Last administered on 03/30/16 03:45; Start 03/30/16 at 03:45; Stop 03/30/16 at 03:46 ; Status DC Insulin Detemir 5 units 5 units Q12HR SQ Last administered on 03/31/16 21:17; Start 03/28/16 at 11:00; Stop 04/01/16 at 08:57; Status DC Pharmacy Profile Note (Vancomycin Consult Pharmacy) 0 ml @ 0 mls/hr UNSCH OTHER ; Start 03/28/16 at 10:15; Status UNV Methylprednisolone Sodium Succinate (SoluMEDROL INJ) 40 mg Q12HR IV PUSH Last administered on 04/17/16 07:26; Start 03/28/16 at 21:00; Stop 04/17/16 at 09:03 ; Status DC Docusate Sodium (Colace Liq) 100 mg Q12HR PO Last administered on 06/29/16 08: 14; Start 03/29/16 at 09:00 Sennosides (Senna Liq) 8.8 mg DAILY PO Last administered on 03/31/16 08:40; Start 03/29/16 at 09:00; Stop 04/01/16 at 08:57; Status DC Furosemide (Lasix Inj) 40 mg BID@09,18 IV PUSH ; Start 03/29/16 at 18:00; Stop 03/29/16 at 18:00; Status DC Furosemide 40 mg 40 mg BID@09,18 IV PUSH Last administered on 04/01/16 17:37; Start 03/29/16 at 09:00; Stop 04/02/16 at 07:14; Status DC Vancomycin HCl/ Sodium Chloride (Vancomycin Inj/ NS 500 ml Inj) 517.5 ml @ 250 mls/hr Q12H IV Last administered on 03/31/16 03:19; Start 03/30/16 at 16:00; Stop 03/31/16 at 13:55; Status DC Miscellaneous Information SPECIFIC LAB TO BE ISHAAN... ONCE ONCE XX Last administered on 03/31/16 15:41; Start 03/31/16 at 15:45; Stop 03/31/16 at 15:46 ; Status DC Acetaminophen (Tylenol 650 Mg/ 20 ml Liq) 650 mg Q6H PRN PO fever or pain 1-5 Last administered on 06/23/16 21:37; Start 03/30/16 at 15:45 Bumetanide (Bumex Inj) 1 mg ONCE ONCE IV PUSH ; Start 03/31/16 at 09:30; Stop 03/31/16 at 10:40; Status DC Dextrose (D50w (Vial) Inj) 25 ml UNSCH PRN IV PUSH HYPOGLYCEMIA-SEE COMMENTS; Start 03/31/16 at 11:15; Stop 04/03/16 at 17:53; Status DC Glucagon (Glucagon Inj) 1 mg UNSCH PRN OTHER HYPOGLYCEMIA-SEE COMMENTS; Start 03/31/16 at 11:15; Stop 04/07/16 at 10:46; Status DC Insulin Human Regular 1 1 Q6H SQ Last administered on 04/03/16 17:48; Start at 12:00; Stop 04/03/16 at 17:54; Status DC Levofloxacin/ Dextrose 150 ml @ 100 mls/hr Q24H IV Last administered on 14:07; Start 03/31/16 at 14:00; Stop 04/16/16 at 09:51; Status DC Fluconazole/ Sodium Chloride 200 ml @ 100 mls/hr Q24H IV Last administered on 04/09/16 15:48; Start 03/31/16 at 16:00; Stop 04/10/16 at 13:31; Status DC Linezolid 300 ml @ 300 mls/hr Q12H IV Last administered on 04/04/16 02:45; Start 03/31/16 at 15:00; Stop 04/04/16 at 09:59; Status DC Cisatracurium Besylate 100 mg/ Sodium Chloride 250 ml @ 0 mls/hr TITRATE IV Last administered on 04/14/16 11:39; Start 04/01/16 at 09:00; Stop 04/15/16 at 09:02; Status DC Epoprostenol Sodium/Sodium Chloride (Flolan (30,000 Ng/ml) Neb/NS Inj) 100 ml @ 8 mls/hr Q8H NEB Last administered on 04/15/16 02:32; Start 04/01/16 at 10:00 ; Stop 04/15/16 at 09:02; Status DC Insulin Detemir (Levemir Inj) 15 units Q12HR SQ Last administered on 04/01/16 20:13; Start 04/01/16 at 09:00; Stop 04/02/16 at 07:14; Status DC Sennosides (Senna Liq) 8.8 mg BID PO/TUBE Last administered on 06/26/16 09:07 ; Start 04/01/16 at 09:00 Polyethylene Glycol (Miralax) 17 gm BID PO Last administered on 04/03/16 21:14 ; Start 04/01/16 at 09:00; Stop 04/23/16 at 13:31; Status DC Lactulose (Lactulose Liq) 30 ml QID PO Last administered on 04/01/16 20:13; Start 04/01/16 at 09:00; Stop 04/02/16 at 07:14; Status DC Methylnaltrexone [place] (Relistor Inj) 12 mg ONCE ONCE SQ Last administered on 04/01/16 11:44; Start 04/01/16 at 10:30; Stop 04/01/16 at 10:31; Status DC Metoclopramide HCl (Reglan Inj) 5 mg Q8HR IV PUSH Last administered on 05:42; Start 04/01/16 at 14:00; Stop 04/11/16 at 09:15; Status DC Glycerin (Glycerin Adult Supp) 2 gm BID PRN RECTAL CONSTIPATION Last administered on 04/25/16 10:22; Start 04/01/16 at 09:00 Glycerin (Glycerin Adult Supp) 2 gm ONCE ONCE RECTAL Last administered on 04/01 10:52; Start 04/01/16 at 09:30; Stop 04/01/16 at 09:31; Status DC Mineral Oil (Mineral Oil Liq) 15 ml ONCE ONCE PO Last administered on 10:00; Start 04/01/16 at 10:00; Stop 04/01/16 at 10:01; Status DC Chlorhexidine Gluconate 15 ml 15 ml BID@08,20 MT Last administered on 07/02/16 20:00; Start 04/01/16 at 20:00 Midazolam HCl 100 ml @ 0 mls/hr TITRATE IV Last administered on 05/01/16 14:25 ; Start 04/01/16 at 11:45; Stop 05/02/16 at 08:35; Status DC Norepinephrine Bitartrate (Levophed-Dextrose Drip) 250 ml @ 0 mls/hr TITRATE IV Last administered on 04/01/16 21:15; Start 04/01/16 at 20:30; Stop 04/07/16 at 10:10; Status DC Furosemide (Lasix Inj) 20 mg BID@09,18 IV PUSH Last administered on 04/03/16 08:17; Start 04/02/16 at 09:00; Stop 04/03/16 at 12:58; Status DC Insulin Detemir (Levemir Inj) 25 units Q12HR SQ Last administered on 04/03/16 08:17; Start 04/02/16 at 09:00; Stop 04/03/16 at 12:48; Status DC IV Flush (NS Flush) DAILY IVF Last administered on 07/02/16 08:50; Start 04/03 at 09:00 IV Flush (NS Flush) UNSCH PRN IVF SEE PROTOCOL Last administered on 04/22/16 07:42; Start 04/02/16 at 09:30 Artificial Tears (Lacrilube Opht Oint) 1 applic Q12HR EACH EYE Last administered on 06/02/16 08:46; Start 04/02/16 at 12:00; Stop 06/02/16 at 14:00; Status DC Lactobacillus Acidophilus (Lactinex) 1 tab TID PO Last administered on 18:01; Start 04/03/16 at 13:00 Insulin Detemir (Levemir Inj) 40 units Q12HR SQ ; Start 04/03/16 at 21:00; Stop 04/03/16 at 21:00; Status DC Insulin Human NPH 15 units 15 units ONCE ONCE SQ Last administered on 13:08; Start 04/03/16 at 13:00; Stop 04/03/16 at 13:01; Status DC Sodium Chloride (NS 1000 ml Inj) 1,000 ml @ 999 mls/hr BOLUS ONCE IV Last administered on 04/03/16 13:10; Start 04/03/16 at 13:00; Stop 04/03/16 at 14:00 ; Status DC Sodium Polystyrene Sulfonate 15 gm 15 gm ONCE ONCE PO Last administered on 13:22; Start 04/03/16 at 13:00; Stop 04/03/16 at 13:08; Status DC Insulin Human Regular/Sodium Chloride (NovoLIN R (IV INFUSION)/NS Inj) 100 ml @ 0 mls/hr TITRATE IV Last administered on 04/03/16 22:44; Start 04/03/16 at 18: 00; Stop 04/04/16 at 09:12; Status DC Dextrose (D50w (Vial) Inj) 25 ml UNSCH PRN IV PUSH SEE LABEL COMMENTS; Start at 17:45; Stop 04/04/16 at 09:14; Status DC Miscellaneous Information 1 ONCE ONCE XX Last administered on 04/03/16 20:27 ; Start 04/03/16 at 17:45; Stop 04/03/16 at 17:52; Status DC Albuterol/ Ipratropium (Duoneb Neb) 1 ampule Q4HR NEB NEB Last administered on 04/08/16 03:48; Start 04/04/16 at 08:00; Stop 04/08/16 at 08:00; Status DC Furosemide 20 mg 20 mg BID@09,18 IV PUSH Last administered on 04/15/16 08:12; Start 04/04/16 at 09:00; Stop 04/15/16 at 09:53; Status DC Insulin Human Regular/Sodium Chloride (NovoLIN R (IV INFUSION)/NS Inj) 100 ml @ 0 mls/hr TITRATE IV Last administered on 04/07/16 04:33; Start 04/04/16 at 09:00 ; Stop 04/07/16 at 10:11; Status DC Dextrose (D50w (Vial) Inj) 25 ml UNSCH PRN IV PUSH SEE LABEL COMMENTS; Start at 09:00; Stop 04/07/16 at 10:46; Status DC Miscellaneous Information 1 ONCE ONCE XX Last administered on 04/04/16 10:00; Start 04/04/16 at 10:00; Stop 04/04/16 at 10:01; Status DC Insulin Detemir (Levemir Inj) 60 units Q12HR SQ Last administered on 04/07/16 07:41; Start 04/05/16 at 11:00; Stop 04/08/16 at 08:14; Status DC Dextrose (D50w (Vial) Inj) 25 ml UNSCH PRN IV PUSH HYPOGLYCEMIA-SEE COMMENTS; Start 04/07/16 at 10:15; Stop 04/07/16 at 17:03; Status DC Glucagon (Glucagon Inj) 1 mg UNSCH PRN OTHER HYPOGLYCEMIA-SEE COMMENTS; Start 04/07/16 at 10:15; Stop 04/07/16 at 17:03; Status DC Insulin Human Regular (NovoLIN R SUPPLEMENTAL SCALE) 1 Q6H SQ Last administered on 04/07/16 10:56; Start 04/07/16 at 11:00; Stop 04/07/16 at 17:01; Status DC Insulin Detemir (Levemir Inj) 20 units Q12HR SQ Last administered on 04/08/16 07:26; Start 04/07/16 at 21:00; Stop 04/08/16 at 08:14; Status DC Dextrose (D50w (Vial) Inj) 25 ml UNSCH PRN IV PUSH HYPOGLYCEMIA-SEE COMMENTS; Start 04/07/16 at 17:00; Stop 05/13/16 at 13:50; Status DC Glucagon (Glucagon Inj) 1 mg UNSCH PRN OTHER HYPOGLYCEMIA-SEE COMMENTS; Start 04/07/16 at 17:00; Stop 05/13/16 at 13:50; Status DC Insulin Human Regular (NovoLIN R SUPPLEMENTAL SCALE) 1 Q6H SQ Last administered on 05/11/16 17:08; Start 04/07/16 at 18:00; Stop 05/13/16 at 13:50 ; Status DC Insulin Detemir 24 units 24 units Q12HR SQ Last administered on 04/09/16 07:37 ; Start 04/08/16 at 21:00; Stop 04/09/16 at 10:01; Status DC Vancomycin HCl 1750 mg/Sodium Chloride 517.5 ml @ 258.75 mls/ hr ONCE ONCE IV Last administered on 04/08/16 14:42; Start 04/08/16 at 13:00; Stop 04/08/16 at 14:59; Status DC Sodium Chloride (NS 500 ml Inj) 500 ml @ 500 mls/hr BOLUS ONCE IV Last administered on 04/08/16 17:20; Start 04/08/16 at 17:15; Stop 04/08/16 at 18:14; Status DC Insulin Detemir 30 units 30 units Q12HR SQ Last administered on 04/10/16 08:29 ; Start 04/09/16 at 21:00; Stop 04/10/16 at 10:25; Status DC Pharmacy Profile Note 0 ml @ 0 mls/hr UNSCH OTHER ; Start 04/09/16 at 10:30; Stop 04/12/16 at 13:55; Status DC Vancomycin HCl/ Sodium Chloride (Vancomycin Inj/ NS 500 ml Inj) 515 ml @ 257.5 mls/ hr Q12H IV Last administered on 04/10/16 11:16; Start 04/09/16 at 12:00; Stop 04/10/16 at 13:51; Status DC Miscellaneous Information SPECIFIC LAB TO BE DRAWN:[facility]... ONCE ONCE XX ; Start 04/10/16 at 11:45; Stop 04/10/16 at 11:46; Status DC Insulin Detemir 35 units 35 units Q12HR SQ Last administered on 04/11/16 08:07 ; Start 04/10/16 at 21:00; Stop 04/11/16 at 09:15; Status DC Vancomycin HCl/ Sodium Chloride (Vancomycin Inj/ NS 500 ml Inj) 520 ml @ 260 mls/hr Q12H IV Last administered on 04/12/16 08:14; Start 04/10/16 at 20:00; Stop 04/12/16 at 13:55; Status DC Miscellaneous Information SPECIFIC LAB TO BE ISHAAN... ONCE ONCE XX Last administered on 04/12/16 07:45; Start 04/12/16 at 07:45; Stop 04/12/16 at 07:46; Status DC Insulin Detemir (Levemir Inj) 45 units Q12HR SQ Last administered on 04/23/16 08:29; Start 04/11/16 at 21:00; Stop 04/23/16 at 13:24; Status DC Metoclopramide HCl 10 mg 10 mg Q8HR IV PUSH Last administered on 05/25/16 06: 05; Start 04/11/16 at 14:00; Stop 05/25/16 at 12:09; Status DC Sodium Chloride (NS 1000 ml Inj) 2,000 ml @ 0 mls/hr NOW ONCE IV Last administered on 04/11/16 21:01; Start 04/11/16 at 21:00; Stop 04/11/16 at 21:01; Status DC Miscellaneous Information SPECIFIC LAB TO BE DRAWN:VANCOMYCIN TROUGH DATE TO... ONCE ONCE XX ; Start 04/13/16 at 19:45; Stop 04/13/16 at 19:46; Status Cancel Furosemide 20 mg 20 mg Q6H IV PUSH Last administered on 04/16/16 08:40; Start 04/12/16 at 15:00; Stop 04/16/16 at 09:25; Status DC Epoprostenol Sodium 30 ml/ Sodium Chloride 67.5 ml @ 8 mls/hr Q8H NEB ; Start 04/15/16 at 10:00; Stop 04/15/16 at 10:00; Status DC Epoprostenol Sodium/Sodium Chloride (Flolan (30,000 Ng/ml) Neb/NS Inj) 100 ml @ 8 mls/hr Q8H NEB Last administered on 04/18/16 02:09; Start 04/15/16 at 10:00 ; Stop 04/18/16 at 10:15; Status DC Furosemide (Lasix Inj) 20 mg Q8H IV PUSH Last administered on 04/23/16 08:31; Start 04/16/16 at 17:00; Stop 04/23/16 at 13:44; Status DC Methylprednisolone Sodium Succinate 40 mg 40 mg DAILY IV PUSH Last administered on 05/02/16 08:11; Start 04/18/16 at 09:00; Stop 05/02/16 at 08:39; Status DC Epoprostenol Sodium 25 ml/ Sodium Chloride 100 ml @ 8 mls/hr Q8H NEB Last administered on 04/19/16 13:12; Start 04/18/16 at 15:00; Stop 04/19/16 at 15:59 ; Status DC Vancomycin HCl 1500 mg/Sodium Chloride 515 ml @ 257.5 mls/ hr ONCE ONCE IV Last administered on 04/19/16 13:45; Start 04/19/16 at 13:00; Stop 04/19/16 at 14:59; Status DC Epoprostenol Sodium 12.5 ml/ Sodium Chloride 100 ml @ 8 mls/hr Q8H NEB Last administered on 04/20/16 00:29; Start 04/19/16 at 16:00; Stop 04/20/16 at 15:11 ; Status DC Pharmacy Profile Note 0 ml @ 0 mls/hr UNSCH OTHER ; Start 04/20/16 at 14:15; Stop 04/29/16 at 10:33; Status DC Vancomycin HCl/ Sodium Chloride (Vancomycin Inj/ NS 500 ml Inj) 520 ml @ 250 mls/hr Q12H IV Last administered on 04/24/16 05:53; Start 04/20/16 at 18:00; Stop 04/24/16 at 09:15; Status DC Miscellaneous Information SPECIFIC LAB TO BE DRAWN:VANCO TROUGH DATE TO... ONCE ONCE XX Last administered on 04/22/16 05:45; Start 04/22/16 at 05:45; Stop 04/22/16 at 05:46; Status DC Potassium Bicarb/ Potassium Chloride (K-Lyte Cl Eff) 25 meq Q12HR PO Last administered on 04/28/16 07:49; Start 04/21/16 at 21:00; Stop 05/27/16 at 08:44 ; Status DC Artificial Tears (Tears Naturale Opth Soln) 1 drop Q4H EACH EYE Last administered on 07/04/16 20:44; Start 04/21/16 at 18:00 Water (Free Water) 200 ml Q6HR G-TUBE Last administered on 04/30/16 12:00; Start 04/22/16 at 18:00; Stop 05/01/16 at 17:19; Status DC Albuterol/ Ipratropium (Duoneb Neb) 1 ampule Q6HR NEB NEB Last administered on 04/27/16 08:03; Start 04/23/16 at 16:00; Stop 04/27/16 at 16:00; Status DC Albuterol/ Ipratropium (Duoneb Neb) 1 ampule Q2HR NEB PRN NEB [id number] Last administered on 05/11/16 15:54; Start 04/23/16 at 13:15; Stop 05/17/16 at 20:14 ; Status DC Insulin Detemir (Levemir Inj) 55 units Q12HR SQ Last administered on 04/24/16 08:34; Start 04/23/16 at 21:00; Stop 04/24/16 at 12:17; Status DC Polyethylene Glycol (Miralax) 17 gm BID PO Last administered on 07/01/16 20:31 ; Start 04/24/16 at 09:00 Furosemide 20 mg 20 mg BID IV PUSH Last administered on 04/28/16 07:50; Start 04/23/16 at 21:00; Stop 04/28/16 at 11:08; Status DC Vancomycin HCl/ Sodium Chloride (Vancomycin Inj/ NS 500 ml Inj) 515 ml @ 257.5 mls/ hr Q12H IV Last administered on 04/28/16 11:59; Start 04/24/16 at 23:00; Stop 04/28/16 at 14:04; Status DC Miscellaneous Information SPECIFIC LAB TO BE ... ONCE ONCE XX Last administered on 04/25/16 22:45; Start 04/25/16 at 22:45; Stop 04/25/16 at 22:46 ; Status DC Insulin Detemir (Levemir Inj) 65 units Q12HR SQ Last administered on 04/25/16 09:00; Start 04/24/16 at 21:00; Stop 04/25/16 at 15:10; Status DC Polyethylene Glycol (Miralax) 17 gm ONCE ONCE PO Last administered on 16:21; Start 04/25/16 at 15:15; Stop 04/25/16 at 15:16; Status DC Polyethylene Glycol (Miralax) 17 gm DAILY PO ; Start 04/26/16 at 09:00; Stop at 11:33; Status DC Mineral Oil (Mineral Oil Liq) 15 ml ONCE ONCE PO Last administered on 16:21; Start 04/25/16 at 16:00; Stop 04/25/16 at 16:01; Status DC Potassium Chloride (KCl 40 Meq/30 ml Liq) 40 meq ONCE ONCE PO Last administered on 04/25/16 16:21; Start 04/25/16 at 15:15; Stop 04/25/16 at 15:16 ; Status DC Insulin Detemir (Levemir Inj) 75 units Q12HR SQ Last administered on 04/26/16 09:13; Start 04/25/16 at 21:00; Stop 04/26/16 at 14:43; Status DC Methylnaltrexone [place] (Relistor Inj) 12 mg ONCE ONCE SQ Last administered on 04/25/16 16:22; Start 04/25/16 at 16:00; Stop 04/25/16 at 16:01; Status DC Miscellaneous Information SPECIFIC LAB TO BE DRAWN:VANCO TROUGH DATE TO BE . ONCE ONCE XX Last administered on 04/28/16 10:45; Start 04/28/16 at 10: 45; Stop 04/28/16 at 10:46; Status DC Methylnaltrexone [place] (Relistor Inj) 12 mg ONCE ONCE SQ Last administered on 04/26/16 15:18; Start 04/26/16 at 14:30; Stop 04/26/16 at 14:56; Status DC Lactulose (Lactulose Liq) 30 ml QID PO Last administered on 04/28/16 07:47; Start 04/26/16 at 18:00; Stop 05/27/16 at 08:44; Status DC Mineral Oil (Mineral Oil Liq) 15 ml ONCE ONCE PO Last administered on 15:19; Start 04/26/16 at 14:30; Stop 04/26/16 at 14:56; Status DC Sennosides (Senna Liq) 8.8 mg ONCE ONCE PO Last administered on 04/26/16 15: 25; Start 04/26/16 at 14:30; Stop 04/26/16 at 14:56; Status DC Magnesium Citrate (Citroma Liq) 300 ml ONCE ONCE PO Last administered on 15:25; Start 04/26/16 at 14:45; Stop 04/26/16 at 14:56; Status DC Potassium Chloride (KCl 40 Meq/30 ml Liq) 40 meq ONCE ONCE PO Last administered on 04/26/16 15:25; Start 04/26/16 at 14:45; Stop 04/26/16 at 14:56 ; Status DC Insulin Detemir (Levemir Inj) 80 units Q12HR SQ Last administered on 04/28/16 07:49; Start 04/26/16 at 21:00; Stop 04/28/16 at 11:19; Status DC Nystatin 1 applic 1 applic Q12HR TOPICAL Last administered on 07/04/16 08:52; Start 04/27/16 at 11:00 Aztreonam/Sodium Chloride (Azactam Inj/NS Inj) 100 ml @ 200 mls/hr Q8H IV Last administered on 04/29/16 02:39; Start 04/27/16 at 10:00; Stop 04/29/16 at 10:34; Status DC Potassium Chloride (KCl 40 Meq/30 ml Liq) 40 meq ONCE ONCE PO Last administered on 04/27/16 13:00; Start 04/27/16 at 13:00; Stop 04/27/16 at 13:02 ; Status DC Albuterol/ Ipratropium (Duoneb Neb) 1 ampule Q4HR NEB NEB Last administered on 05/02/16 07:53; Start 04/28/16 at 12:00; Stop 05/02/16 at 12:00; Status DC Sodium Chloride 2 ml 2 ml Q8HR NEB NEB Last administered on 05/01/16 07:21; Start 04/28/16 at 16:00; Stop 05/01/16 at 15:59; Status DC Sodium Chloride/ Sterile Water (Sodium Chloride 23.4% Inj/Sterile Water For Inj ) 1,009.625 ml @ 84 mls/hr Q12H2M IV Last administered on 04/28/16 13:23; Start 04/28/16 at 13:00; Stop 04/29/16 at 01:01; Status DC Insulin Detemir 70 units 70 units Q12HR SQ Last administered on 05/03/16 08:08 ; Start 04/28/16 at 21:00; Stop 05/05/16 at 17:18; Status DC Vancomycin HCl/ Sodium Chloride (Vancomycin Inj/ NS 250 ml Inj) 262.5 ml @ 250 mls/hr Q12H IV Last administered on 04/29/16 00:18; Start 04/28/16 at 23:00; Stop 04/29/16 at 10:34; Status DC Miscellaneous Information SPECIFIC LAB TO BE ISHAAN... ONCE ONCE XX ; Start at 10:45; Stop 04/30/16 at 10:45; Status DC Clindamycin Phosphate/Sodium Chloride (Cleocin Inj/NS Inj) 104 ml @ 208 mls/hr Q8H IV Last administered on 05/06/16 15:52; Start 04/29/16 at 12:00; Stop at 12:00; Status DC Lidocaine/ Epinephrine (Xylocaine-Epi 1%-1:100,000 Inj) 30 ml STK-MED ONCE .ROUTE ; Start 04/30/16 at 13:00; Stop 04/30/16 at 13:01; Status DC Fentanyl Citrate 250 mcg 250 mcg STK-MED ONCE .ROUTE ; Start 04/30/16 at 15:28; Stop 04/30/16 at 15:29; Status DC Dexmedetomidine HCl (Precedex Inj) 50 ml @ 0 mls/hr TITRATE IV Last administered on 05/02/16 18:32; Start 05/01/16 at 17:00; Stop 05/02/16 at 19:00; Status DC Water (Free Water) 100 ml Q6HR G-TUBE Last administered on 06/09/16 12:00; Start 05/01/16 at 18:00; Stop 06/10/16 at 15:51; Status DC Fentanyl (Duragesic 25 Mcg Patch.72 Hr) 1 patch Q3D TD Last administered on 09:05; Start 05/02/16 at 09:00; Stop 06/19/16 at 08:05; Status DC Miscellaneous Information 1 Q3D T-DERMAL Last administered on 06/13/16 08:23; Start 05/05/16 at 09:00; Stop 06/19/16 at 08:05; Status DC Oxycodone HCl (Roxicodone Intensol Liq) 5 mg Q6H PRN PO PAIN SCALE 7 TO 10 Last administered on 05/23/16 05:54; Start 05/02/16 at 08:45; Stop 06/05/16 at 22 :00; Status DC Acetaminophen/ Hydrocodone Bitart ([place] 5-325 Mg) 1 tab Q6H PO Last administered on 05/06/16 15:52; Start 05/02/16 at 09:00; Stop 05/06/16 at 18:52; Status DC Methylprednisolone Sodium Succinate (SoluMEDROL INJ) 30 mg DAILY IV PUSH Last administered on 05/04/16 07:55; Start 05/03/16 at 09:00; Stop 05/04/16 at 10:09; Status DC Midazolam HCl (Versed Inj) 5 mg STK-MED ONCE .ROUTE Last administered on 16:18; Start 05/02/16 at 16:14; Stop 05/02/16 at 16:15; Status DC Lorazepam (Ativan Inj) 2 mg STK-MED ONCE .ROUTE Last administered on 05/02/16 16:19; Start 05/02/16 at 16:15; Stop 05/02/16 at 16:16; Status DC Midazolam HCl (Versed Inj) 5 mg NOW ONCE IV Last administered on 05/02/16 16: 30; Start 05/02/16 at 16:30; Stop 05/02/16 at 16:31; Status DC Lorazepam 2 mg 2 mg Q4H PRN IVP AGITATION Last administered on 06/13/16 21:22 ; Start 05/02/16 at 16:30; Stop 06/19/16 at 08:05; Status DC Dexmedetomidine HCl/Sodium Chloride (Precedex Inj/NS 250 ml Inj) 260 ml @ 0 mls/ hr TITRATE IV Last administered on 05/04/16 09:53; Start 05/02/16 at 19:01; Stop 05/04/16 at 16:31; Status DC Hydralazine HCl (Apresoline Inj) 10 mg Q4H PRN IV PUSH SBP >165 Last administered on 05/03/16 06:20; Start 05/02/16 at 22:00; Stop 06/05/16 at 20:34; Status DC Propofol (Diprivan 200 Mg/20 ml Inj) 170 mg STK-MED ONCE IV ; Start 05/03/16 at 15:06; Stop 05/03/16 at 15:07; Status DC Quetiapine Fumarate (SEROquel) 25 mg BID PO Last administered on 06/21/16 10: 58; Start 05/04/16 at 09:00; Stop 06/21/16 at 13:25; Status DC Methylprednisolone Sodium Succinate (SoluMEDROL INJ) 20 mg DAILY IV PUSH Last administered on 05/11/16 08:02; Start 05/05/16 at 09:00; Stop 05/12/16 at 09:13 ; Status DC Fentanyl Citrate (fentaNYL INJ) 50 mcg NOW ONCE IV Last administered on 01:03; Start 05/05/16 at 01:00; Stop 05/05/16 at 01:02; Status DC Metoprolol Tartrate (Lopressor Inj) 2.5 mg NOW ONCE IV PUSH Last administered on 05/05/16 04:17; Start 05/05/16 at 04:00; Stop 05/05/16 at 04:01; Status DC Ondansetron HCl (Zofran Inj) 4 mg Q6H PRN IV NAUSEA OR VOMITING; Start 05/05/16 at 06:45 Bumetanide (Bumex Inj) 0.5 mg DAILY IV PUSH Last administered on 05/24/16 09: 25; Start 05/05/16 at 09:00; Stop 05/24/16 at 10:39; Status DC Albuterol/ Ipratropium (Duoneb Neb) 1 ampule TID NEB INH Last administered on 05/09/16 13:05; Start 05/05/16 at 14:00; Stop 05/09/16 at 14:00; Status DC Insulin Detemir (Levemir Inj) 50 units Q12HR SQ Last administered on 05/11/16 20:54; Start 05/05/16 at 21:00; Stop 05/13/16 at 13:50; Status DC Acetaminophen/ Hydrocodone Bitart ([place] 5-325 Mg) 1 tab Q12HR PO Last administered on 06/18/16 19:40; Start 05/06/16 at 21:00; Stop 06/19/16 at 08:05 ; Status DC Propofol 200 mg 200 mg STK-MED ONCE IV ; Start 04/30/16 at 15:12; Stop 05/07/16 at 15:12; Status DC Parenteral Electrolytes (Normosol R Inj) 2,000 ml @ As Directed STK-MED ONCE IV ; Start 04/30/16 at 15:12; Stop 05/07/16 at 15:12; Status DC Potassium Chloride (KCl) 10 meq DAILY PO Last administered on 07/04/16 08:49; Start 05/10/16 at 09:30 Simethicone (Phazyme Chew) 125 mg DAILY PRN PO gas Last administered on 15:00; Start 05/11/16 at 15:00 Insulin Detemir (Levemir Inj) 35 units Q12HR SQ Last administered on 05/30/16 20:26; Start 05/13/16 at 21:00; Stop 06/05/16 at 22:00; Status DC Dextrose (D50w (Vial) Inj) 25 ml UNSCH PRN IV PUSH HYPOGLYCEMIA-SEE COMMENTS; Start 05/13/16 at 14:00; Stop 05/31/16 at 21:54; Status DC Glucagon (Glucagon Inj) 1 mg UNSCH PRN OTHER HYPOGLYCEMIA-SEE COMMENTS; Start 05/13/16 at 14:00; Stop 05/31/16 at 21:54; Status DC Insulin Human Regular (NovoLIN R SUPPLEMENTAL SCALE) 1 ACHS SLIDING SCALE SQ Last administered on 05/25/16 06:19; Start 05/13/16 at 16:00; Stop 05/25/16 at 12:14; Status DC Silver Sulfadiazine (Silvadene 1% Cream (400 Gm)) 1 applic DAILY TOPICAL Last administered on 07/02/16 08:51; Start 05/16/16 at 11:00 Pregabalin (Lyrica) 25 mg DAILY PO Last administered on 05/19/16 08:22; Start 05/17/16 at 11:45; Stop 05/20/16 at 10:29; Status DC Ipratropium [place] (Atrovent Neb) 0.5 mg Q2HR NEB PRN NEB wheezing Last administered on 05/27/16 00:28; Start 05/17/16 at 21:00 Diltiazem HCl (Cardizem) 30 mg ONCE ONCE PO Last administered on 05/17/16 22: 44; Start 05/17/16 at 22:45; Stop 05/17/16 at 22:46; Status DC Potassium Chloride (KCl) 40 meq ONCE ONCE PO Last administered on 05/17/16 22 :44; Start 05/17/16 at 22:45; Stop 05/17/16 at 22:46; Status DC Pregabalin (Lyrica) 50 mg DAILY PO Last administered on 06/18/16 08:33; Start 05/21/16 at 09:00; Stop 06/19/16 at 08:05; Status DC Baclofen (Lioresal) 10 mg Q12HR PO Last administered on 06/18/16 19:39; Start 05/24/16 at 10:45; Stop 06/19/16 at 08:05; Status DC Bumetanide (Bumetanide) 0.5 mg ONCE ONCE PO Last administered on 05/25/16 09: 21; Start 05/25/16 at 09:00; Stop 05/25/16 at 09:01; Status DC Miscellaneous (Pill Splitter) 1 ea UNSCH PRN OTHER SEE LABEL COMMENTS; Start at 10:45 Pantoprazole Sodium (Protonix) 40 mg DAILY PO Last administered on 07/04/16 08: 51; Start 05/26/16 at 09:00 Insulin Human Regular (NovoLIN R SUPPLEMENTAL SCALE) 1 Q12HR SQ Last administered on 05/26/16 22:40; Start 05/25/16 at 19:00; Stop 05/27/16 at 08:44 ; Status DC Metoclopramide HCl (Reglan) 10 mg Q8HR G-TUBE Last administered on 06/02/16 14: 43; Start 05/25/16 at 14:00; Stop 06/02/16 at 14:49; Status DC Albuterol Sulfate 2.5 mg 2.5 mg ONCE ONCE NEB Last administered on 05/27/16 00:45; Start 05/27/16 at 00:45; Stop 05/27/16 at 00:46; Status DC Sodium Chloride (NS 1000 ml Inj) 999 ml @ 0 mls/hr BOLUS ONCE IV Last administered on 05/27/16 02:01; Start 05/27/16 at 02:00; Stop 05/27/16 at 04:31 ; Status DC Adenosine (Adenocard Inj) 6 mg NOW ONCE IV PUSH Last administered on 02:01; Start 05/27/16 at 02:01; Stop 05/27/16 at 04:31; Status DC Adenosine (Adenocard Inj) 12 mg NOW ONCE IV PUSH Last administered on 02:11; Start 05/27/16 at 02:11; Stop 05/27/16 at 04:31; Status DC Insulin Human Regular 1 1 Q4HR SQ ; Start 05/27/16 at 12:00; Stop 05/28/16 at 01 :44; Status DC Sodium Chloride (NS 1000 ml Inj) 1,000 ml @ 100 mls/hr Q10H IV Last administered on 05/27/16 19:00; Start 05/27/16 at 09:00; Stop 05/28/16 at 04:59 ; Status DC Albuterol/ Ipratropium (Duoneb Neb) 1 ampule Q6HR NEB NEB Last administered on 05/31/16 07:29; Start 05/27/16 at 10:00; Stop 05/31/16 at 10:00; Status DC Insulin Human Regular (NovoLIN R SUPPLEMENTAL SCALE) 1 BID@07,15 SQ Last administered on 05/28/16 14:34; Start 05/28/16 at 07:00; Stop 05/31/16 at 21:53 ; Status DC Adenosine (Adenocard Inj) 6 mg STK-MED ONCE IV PUSH ; Start 05/27/16 at 05:00; Stop 05/28/16 at 12:54; Status DC Dextrose (D50w (Vial) Inj) 25 ml UNSCH PRN IV PUSH HYPOGLYCEMIA-SEE COMMENTS; Start 05/31/16 at 22:00 Glucagon (Glucagon Inj) 1 mg UNSCH PRN OTHER HYPOGLYCEMIA-SEE COMMENTS; Start 05/31/16 at 22:00; Stop 06/19/16 at 08:05; Status DC Insulin Aspart (NovoLOG SUPPLEMENTAL SCALE) 1 ACHS SLIDING SCALE SQ Last administered on 06/12/16 18:00; Start 06/01/16 at 07:00; Stop 06/22/16 at 16:52 ; Status DC Albuterol/ Ipratropium (Duoneb Neb) 1 ampule Q6HR NEB NEB Last administered on 06/06/16 08:29; Start 06/02/16 at 16:00; Stop 06/06/16 at 10:56; Status DC Albuterol/ Ipratropium (Duoneb Neb) 1 ampule Q2HR NEB PRN NEB dyspnea Last administered on 06/21/16 20:16; Start 06/02/16 at 15:00 Insulin Detemir 5 units 5 units HS SQ Last administered on 07/04/16 20:43; Start 06/06/16 at 21:00 Propofol (Diprivan 1000 Mg/100ml Inj) 100 ml @ As Directed STK-MED ONCE .ROUTE ; Start 06/12/16 at 15:40; Stop 06/12/16 at 15:41; Status DC Midazolam HCl (Versed Inj) 5 mg STK-MED ONCE .ROUTE ; Start 06/12/16 at 15:41; Stop 06/12/16 at 15:42; Status DC Chlorhexidine Gluconate 15 ml 15 ml BID@08,20 MT ; Start 06/12/16 at 20:00; Stop 06/12/16 at 20:00; Status DC Propofol 100 ml @ 0 mls/hr TITRATE IV Last administered on 06/13/16 17:09; Start 06/12/16 at 17:45; Stop 06/19/16 at 08:05; Status DC Fentanyl Citrate 250 ml @ 0 mls/hr TITRATE IV Last administered on 06/12/16 20 :08; Start 06/12/16 at 17:45; Stop 06/19/16 at 08:06; Status DC Levofloxacin/ Dextrose 150 ml @ 100 mls/hr Q24H IV Last administered on 13:05; Start 06/13/16 at 14:00; Stop 06/19/16 at 10:06; Status DC Sodium Chloride 1,000 ml @ 999 mls/hr BOLUS ONCE IV Last administered on 06/13 14:43; Start 06/13/16 at 13:30; Stop 06/13/16 at 14:30; Status DC Sodium Chloride 1,000 ml @ 999 mls/hr BOLUS ONCE IV Last administered on 06/13 14:43; Start 06/13/16 at 13:30; Stop 06/13/16 at 14:30; Status DC Potassium Chloride 10 meq/ Sodium Chloride 1,005 ml @ 75 mls/hr [id number] IV Last administered on 06/22/16 00:24; Start 06/13/16 at 15:00; Stop 06/22/16 at 18:02; Status DC Sodium Chloride 1,000 ml @ 0 mls/hr ONCE ONCE IV Last administered on 08:48; Start 06/15/16 at 07:30; Stop 06/15/16 at 07:31; Status DC Cefazolin Sodium/ Dextrose 50 ml @ 100 mls/hr Q8H IV Last administered on 06/15 12:48; Start 06/15/16 at 12:00; Stop 06/15/16 at 13:13; Status DC Vancomycin HCl 1500 mg/Sodium Chloride 515 ml @ 257.5 mls/ hr ONCE ONCE IV Last administered on 06/15/16 15:12; Start 06/15/16 at 14:00; Stop 06/15/16 at 15:59; Status DC Pharmacy Profile Note 0 ml @ 0 mls/hr UNSCH OTHER ; Start 06/15/16 at 13:00; Stop 06/19/16 at 10:06; Status DC Aztreonam 1000 mg/ Sodium Chloride 100 ml @ 200 mls/hr Q8H IV Last administered on 06/19/16 05:21; Start 06/15/16 at 13:00; Stop 06/19/16 at 10:06 ; Status DC Vancomycin HCl/ Sodium Chloride (Vancomycin Inj/ NS 500 ml Inj) 515 ml @ 257.5 mls/ hr Q12H IV Last administered on 06/17/16 02:49; Start 06/16/16 at 02:00; Stop 06/17/16 at 08:43; Status DC Miscellaneous Information SPECIFIC LAB TO BE DRAWN:VANCO TROUGH DATE TO BE DR... ONCE ONCE .XX Last administered on 06/17/16 01:45; Start 06/17/16 at 01 :45; Stop 06/17/16 at 01:46; Status DC Vancomycin HCl/ Sodium Chloride (Vancomycin Inj/ NS 500 ml Inj) 517.5 ml @ 257.5 mls/ hr Q12H IV Last administered on 06/19/16 03:33; Start 06/17/16 at 14:00; Stop 06/19/16 at 08:51; Status DC Miscellaneous Information SPECIFIC LAB TO BE DRAWN:VANCOMY... ONCE ONCE .XX Last administered on 06/19/16 02:04; Start 06/19/16 at 01:45; Stop 06/19/16 at 01:46; Status DC Miscellaneous Information D/C ICU ELECTROLYTE ORDERS... UNSCH PRN .XX SEE DOSE INSTRUCTIONS; Start 06/17/16 at 10:30; Status Cancel Miscellaneous Information ICU - CALL ORDERING PHYSIC... UNSCH PRN .XX SEE DOSE INSTRUCTIONS; Start 06/17/16 at 10:30; Status Cancel Potassium Chloride (KCl 40 Meq Premix Inj) 100 ml @ 25 mls/hr UNSCH PRN IV ELECTROLYTE REPLACEMENT Last administered on 06/17/16 17:40; Start 06/17/16 at 10:30 Potassium Bicarb/ Potassium Chloride 50 meq 50 meq UNSCH PRN PO ELECTROLYTE REPLACEMENT; Start 06/17/16 at 10:30; Status Cancel Potassium Chloride 100 ml @ 50 mls/hr UNSCH PRN IV ELECTROLYTE REPLACEMENT; Start 06/17/16 at 10:30; Status Cancel Magnesium Sulfate 4 gm/Sodium Chloride 108 ml @ 54 mls/hr UNSCH PRN IV ELECTROLYTE REPLACEMENT; Start 06/17/16 at 10:30; Status Cancel Magnesium Sulfate/ Sodium Chloride (Magnesium Sulfate Inj/NS Inj) 104 ml @ 52 mls/hr UNSCH PRN IV ELECTROLYTE REPLACEMENT; Start 06/17/16 at 10:30; Status Cancel Magnesium Oxide 800 mg 800 mg UNSCH PRN PO ELECTROLYTE REPLACEMENT; Start 06/17 at 10:30; Status Cancel Sodium Phosphate/ Sodium Chloride (Sodium Phosphate Inj/NS 250 ml Inj) 260 ml @ 43.333 mls/ hr UNSCH PRN IV ELECTROLYTE REPLACEMENT; Start 06/17/16 at 10:30 ; Status Cancel Potassium Phosphate 2000 mg 2,000 mg UNSCH PRN PO ELECTROLYTE REPLACEMENT; Start 06/17/16 at 10:30; Status Cancel Potassium Phosphate/Sodium Chloride (Potassium Phosphate Inj/NS 250 ml Inj) 260 ml @ 43.333 mls/ hr UNSCH PRN IV ELECTROLYTE REPLACEMENT; Start 06/17/16 at 10 :30; Status Cancel Baclofen (Lioresal) 5 mg Q12HR PO Last administered on 06/21/16 10:58; Start 06/19/16 at 09:00; Stop 06/21/16 at 13:25; Status DC Pregabalin (Lyrica) 150 mg DAILY PO Last administered on 06/21/16 10:58; Start 06/19/16 at 09:00; Stop 06/21/16 at 13:25; Status DC Tizanidine HCl (Zanaflex) 2 mg Q12HR PO Last administered on 06/21/16 10:58; Start 06/19/16 at 09:00; Stop 06/21/16 at 13:25; Status DC Oxycodone HCl 2.5 mg 2.5 mg Q6H PRN PO pain 1-7 Last administered on 06/24/16 13:00; Start 06/19/16 at 08:15; Stop 06/24/16 at 16:18; Status DC Vancomycin HCl/ Sodium Chloride (Vancomycin Inj/ NS 500 ml Inj) 520 ml @ 257.5 mls/ hr Q12H IV ; Start 06/19/16 at 14:00; Stop 06/19/16 at 14:00; Status DC Miscellaneous Information SPECIFIC LAB TO BE DRAWN:VANCOMYCIN TROUGH DATE TO... ONCE ONCE .XX ; Start 06/21/16 at 01:45; Stop 06/21/16 at 01:45; Status DC Cefepime HCl 2000 mg/Sodium Chloride 100 ml @ 200 mls/hr Q12H IV Last administered on 06/26/16 00:00; Start 06/19/16 at 12:00; Stop 06/26/16 at 10:31 ; Status DC Norepinephrine Bitartrate 250 ml @ As Directed STK-MED ONCE IV Last administered on 06/19/16 16:09; Start 06/19/16 at 13:51; Stop 06/19/16 at 13:52 ; Status DC Sodium Chloride 1,000 ml @ 0 mls/hr BOLUS STAT IV ; Start 06/19/16 at 17:58; Stop 06/19/16 at 17:59; Status DC Fluconazole/ Sodium Chloride 200 ml @ 100 mls/hr Q24H IV Last administered on 06/22/16 09:12; Start 06/20/16 at 11:00; Stop 06/22/16 at 14:07; Status DC Vancomycin HCl 1500 mg/Sodium Chloride 515 ml @ 257.5 mls/ hr ONCE ONCE IV ; Start 06/20/16 at 11:00; Stop 06/20/16 at 11:26; Status DC Pharmacy Profile Note 0 ml @ 0 mls/hr UNSCH OTHER ; Start 06/20/16 at 11:00; Stop 06/22/16 at 14:07; Status DC Vancomycin HCl/ Sodium Chloride (Vancomycin Inj/ NS 500 ml Inj) 520 ml @ 250 mls/hr Q12H IV Last administered on 06/22/16 11:46; Start 06/20/16 at 13:00; Stop 06/22/16 at 14:07; Status DC Miscellaneous Information SPECIFIC LAB TO BE DRAWN:VANCO TROUGH DATE TO... ONCE ONCE .XX Last administered on 06/22/16 00:45; Start 06/22/16 at 00:45; Stop 06/22/16 at 00:46; Status DC Baclofen (Lioresal) 5 mg DAILY PO Last administered on 07/04/16 08:50; Start at 09:00 Pregabalin (Lyrica) 75 mg Q12HR PO Last administered on 07/04/16 20:42; Start 06/22/16 at 09:00 Miscellaneous Information SPECIFIC LAB TO BE ... ONCE ONCE .XX ; Start 06/23 at 12:45; Stop 06/23/16 at 12:45; Status DC Oxycodone HCl (Roxicodone) 2.5 mg Q4H PRN PO pain 1-6 Last administered on 00:27; Start 06/24/16 at 17:00 Date of Removal: Jun 29, 2016 A/P Assessment and Plan A/P Transaminitis. LFT improved. Abd pain, resolved Follow trend of LFT. Liver US shows fatty liver. Small stones or tumefactive sludge adherent to one of the gallbladder arcos. 3. Splenomegaly. Avoid liver toxicity drugs. Hep panel negative Diabetes mellitus Currently on levemir 5 units HS. Diabetic Neuropathy: patient c/o left leg tingling/pins and needle on the left leg and seem. On lyrica to 50 mg po daily, improving. - No complains on Baclofen- improved PT ff Acute hypoxemic respiratory failure on T piece tolerates well [facility] History of staph aureus pneumonia/HCAP ARDS Currently on T-Piece, and tolerating well Pulm following, appreciate rec's. Trach collar with oxygen support to keep sat >92%. 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 Optifoam in place. Apply bacitracin. Wound cultures with normal sherine. Consult wound care, discussed with Nica from wound care, appreciate recommendations. Cleanse wound with NS and apply nonadhesive foam ag dressing over wound and change every other day and PRN for saturation or dislodgement. on silvadene cream daily Mild MR/TR. Monitor HR and BP keep MAP>65mmHg 2-D echo 03/26 EF 60%. No regional wall motion abnormality. Mild MR/TR. Hypokalemia-resolved Hypernatremia-resolved Hypophosphatemia-resolved Monitor renal function, and electrolytes periodically. Constipation-resolved Moderate protein calorie malnutrition Nausea and vomiting- resolved On tube feeding. Protonix 40mg daily On Reglan 10mg Q8, Senna and Colace twice a day.Discontinue MiraLAX twice a day and lactulose 4 times a day. PEG tube placement- 05/03- tolerating TF Zofran 4 mg every 6 hours when necessary Likely SERENITY Toxic metabolic encephalopathy-resolved Continue with pain control. Seroquel 25mg BID initiated 3/3 Acetaminophen for fever Staph aureus pneumonia- PSAE,MSSA Possible staph bacteremia Pertinent culture 04/27 - pansensitive staph aureus 04/27 blood cultures 2 negative 04/25 - urine -no growth 04/19 - blood cultures 2 out of 4 - staph aureus 04/19 - sputum - staph aureus 04/08 - sputum - staph aureus 04/03 - sputum - staph aureus 03/30 - sputum- -staph aureus 03/27 - sputum - staph aureus 03/26 - blood - staph hominis S/P On vancomycin 2 g IV every 12 are since 04/19 - 04/29 Azactam 04/27 through Finished clindamycin ID consulted . Finished course of abx- with Cefepime 06/25 ID specialist signed off. Leukocytosis Monitor CBC/coags periodically. Morbid obesity BMI of 51.8 Weight loss encouraged. DVT, GI prophylaxis -Bilateral lower extremity SCDs. PEG Protonix 40 mg daily. REglan 10 mg /PEG q 8 Lovenox 40 mg sq BID Left shoulder pain- - limited range of motion- Xrays negative for dislocation. PT consulted. Discharge Planning needs SNF placement. dc planning in progress. Mg Stearns MD July 05, 2016 09:44
[2016-07-05] MEDS: BACLOFEN 10 MG TAB PO SCH (10:14)
[2016-07-05] MEDS: POTASSIUM CHLORIDE 10 MEQ CONTROLLED RELEASE TAB PO SCH (10:14)
[2016-07-05] MEDS: BENEPROTEIN POWDER 1 PACK G-TUBE SCH ×3 (10:14→16:34)
[2016-07-05] MEDS: LACTOBACILLUS ACIDOPHILUS TAB PO SCH ×3 (10:14→16:34)
[2016-07-05] MEDS: PREGABALIN 75 MG CAP PO SCH ×2 (10:15→20:41)
[2016-07-05] MEDS: PANTOPRAZOLE SOD 40 MG DELAYED RELEASE TAB PO SCH (10:15)
[2016-07-05] MEDS: BETAMETHASONE/CLOTRIMAZOLE CREAM 15 GM TOPICAL SCH ×2 (10:16→20:40)
[2016-07-05] MEDS: NYSTATIN 100,000 U/GM PWD 15 GM BTL TOPICAL SCH ×2 (10:16→20:40)
[2016-07-05] MEDS: SILVER SULFADIAZINE 1% CR 400 GM JAR TOPICAL SCH (10:16)
--- NOTE | 2016-07-05 17:14 | HHI.PR ---
Subjective Remarks respiratory failure DOING WELL , NOW ON T TUBE Objective Vital Signs Date Time Temp Pulse Resp B/P Pulse Ox O2 Delivery O2 Flow Rate FiO2 07/05/16 14:27 94 T-piece 40 07/05/16 12:00 98.4 93 20 103/59 94 07/05/16 11:30 20 07/05/16 11:30 20 07/05/16 10:41 92 T-Piece 6.00 35 07/05/16 08:00 98.0 88 20 107/61 92 07/05/16 04:30 98.2 85 16 94/48 94 07/04/16 23:47 98.0 91 18 114/59 93 07/04/16 21:31 93 T-piece 5.00 40 07/04/16 20:15 98.9 102 18 105/57 93 07/04/16 20:00 97 07/04/16 20:00 T-Piece 6.00 35 I/O 07/04/16 07/04/16 07/04/16 07/05/16 07/05/16 07/05/16 07:00 15:00 23:00 07:00 15:00 23:00 Intake Total 480 ml 720 ml 0 ml 0 ml Output Total 600 ml 225 ml 300 ml Balance -120 ml 495 ml -300 ml 0 ml Intake Oral 480 ml 720 ml 0 ml IV Total 0 ml Output Urine Total 600 ml 225 ml 300 ml # Bowel Movements 0 0 Result Diagram: 07/01/16 0753 07/01/16 0753 Objective Remarks GENERAL: SKIN: Warm and dry.on vent support HEAD: Atraumatic. Normocephalic. EYES: Pupils equal and round. No scleral icterus. No injection or drainage. ENT: No nasal bleeding or discharge. Mucous membranes pink and moist. NECK: Trachea midline. No JVD. CARDIOVASCULAR: Regular rate and rhythm. RESPIRATORY: No accessory muscle use. Clear to auscultation. Breath sounds equal bilaterally. GASTROINTESTINAL: Abdomen soft, non-tender, nondistended. Hepatic and splenic margins not palpable. MUSCULOSKELETAL: Extremities without clubbing, cyanosis, or edema. No obvious deformities. NEUROLOGICAL: Awake and alert. No obvious cranial nerve deficits. Motor grossly within normal limits. Five out of 5 muscle strength in the arms and legs. Normal speech. PSYCHIATRIC: Appropriate mood and affect; insight and judgment normal. Assessment and Plan Assessment and Plan respiratory failure morbid obesity plan O2 NEEDED pulm toilet prognosis guarded Discharge Planning GENERAL: SKIN: Warm and dry. HEAD: Atraumatic. Normocephalic. EYES: Pupils equal and round. No scleral icterus. No injection or drainage. ENT: No nasal bleeding or discharge. Mucous membranes pink and moist. NECK: Trachea midline. No JVD. CARDIOVASCULAR: Regular rate and rhythm. RESPIRATORY: No accessory muscle use. Clear to auscultation. Breath sounds equal bilaterally. GASTROINTESTINAL: Abdomen soft, non-tender, nondistended. Hepatic and splenic margins not palpable. MUSCULOSKELETAL: Extremities without clubbing, cyanosis, or edema. No obvious deformities. NEUROLOGICAL: Awake and alert. No obvious cranial nerve deficits. Motor grossly within normal limits. Five out of 5 muscle strength in the arms and legs. Normal speech. PSYCHIATRIC: Appropriate mood and affect; insight and judgment normal. Orlando Perry MD July 05, 2016 17:14
[2016-07-05] MEDS: INSULIN DETEMIR 100 UNITS/ML VIAL SQ SCH (20:41)
[2016-07-06] VITALS (8 sets, daily range): BP systolic 106–120; BP diastolic 56–68; PULSE 80–100; RESP 18–20; TEMP 98.1–99.1; O2SAT 92–98
[2016-07-06] MEDS: ARTIFICIAL TEARS OPTH SOLN 15 ML BTL EACH EYE SCH ×6 (02:00→20:53)
[2016-07-06] MEDS: ENOXAPARIN SODIUM 40 MG/0.4 ML SYRINGE SQ SCH ×2 (05:54→17:29)
[2016-07-06] MEDS: CHLORHEXIDINE 0.12% (ORAL KIT) 15 ML CUP MT SCH ×2 (08:00→20:00)
--- NOTE | 2016-07-06 08:07 | HHI.PR ---
Subjective Remarks resting comfortably with no distress. no new complaints. d/w the RN. Objective Vitals Vital Signs Date Time Temp Pulse Resp B/P Pulse Ox O2 Delivery O2 Flow Rate FiO2 07/06/16 04:15 98.6 85 18 111/58 93 07/05/16 23:25 98.7 90 18 110/65 94 07/05/16 20:35 98.7 125 18 110/53 94 07/05/16 20:00 97 T-Piece 5.00 Humidified 07/05/16 20:00 97 07/05/16 18:00 18 07/05/16 17:58 T-piece 6.00 40 07/05/16 16:00 98.5 89 18 98/55 96 07/05/16 14:27 94 T-piece 40 07/05/16 12:00 98.4 93 20 103/59 94 07/05/16 11:30 20 07/05/16 10:41 92 T-Piece 6.00 35 I/O 07/05/16 07/05/16 07/05/16 07/06/16 07/06/16 07/06/16 07:00 15:00 23:00 07:00 15:00 23:00 Intake Total 0 ml 720 ml 240 ml 0 ml Output Total 300 ml 450 ml 475 ml 200 ml Balance -300 ml 270 ml -235 ml -200 ml Intake Oral 0 ml 720 ml 240 ml 0 ml IV Total 0 ml Output Urine Total 300 ml 450 ml 475 ml 200 ml # Bowel Movements 0 0 1 0 Imaging Last Impressions Chest X-Ray 06/30/16 0600 Signed Impressions: Service Date/Time: Thursday, June 30, 2016 06:07 - CONCLUSION: No significant change. Mild bilateral perihilar and basilar consolidation again noted. Ubaldo Ortiz MD Shoulder X-Ray 06/28/16 0000 Signed Impressions: Service Date/Time: June 15:12 - CONCLUSION: 1. Limited but negative examination of the shoulder. Kyaw Rojo MD Abdomen X-Ray 06/19/16 0000 Signed Impressions: Service Date/Time: Sunday, June 19, 2016 10:43 - CONCLUSION: Gastric tube tip does not cross the diaphragm and the side port is approximately 8 cm above the diaphragm. Chano Goodwin MD Lower Extremity Ultrasound 06/04/16 0000 Signed Impressions: Service Date/Time: Saturday, June 04, 2016 14:54 - CONCLUSION: 1. No DVT identified. Dc Barton MD Liver Ultrasound 05/09/16 0000 Signed Impressions: Service Date/Time: Monday, May 09, 2016 22:28 - CONCLUSION: 1. Enlarged, fatty liver. 2. Small stones or tumefactive sludge adherent to one of the gallbladder arcos. 3. Splenomegaly. 4. Pancreas is obscured by overlying bowel gas and patient's body habitus. Arthur Kennedy MD Chest CT 03/28/16 0836 Signed Impressions: Service Date/Time: Monday, March 28, 2016 09:57 - CONCLUSION: Development areas of air bronchograms and consolidation more prominent in the right and left posterior basilar segments of the lower lobes. ET tube above the chanelle. Bernard Hartman MD CT Angiography 03/24/16 1121 Signed Impressions: Service Date/Time: Thursday, March 24, 2016 12:47 - CONCLUSION: 1. There is respiratory motion artifact but no PE is identified through most of the segmental level pulmonary arteries. 2. Mildly enlarged main pulmonary artery may indicate pulmonary arterial hypertension. 3. 11 mm left lower lobe noncalcified pulmonary nodule. Suggest correlation with any prior imaging studies that could confirm longer-term stability. If none are available consider short-term followup noncontrast chest CT in approximately 3 months. Ubaldo Rodas MD Objective Remarks GENERAL: in no apparent distress. Neck; trach in place CARDIOVASCULAR: Regular rate and regular rhythm without murmurs, gallops, or rubs. RESPIRATORY: Clear to auscultation. Breath sounds equal bilaterally. No wheezes , rales, or rhonchi. GASTROINTESTINAL: Abdomen soft, non-tender, nondistended. Normal, active bowel sounds MUSCULOSKELETAL: Extremities without clubbing, cyanosis, or edema. NEURO: Alert & Oriented x4 to person, place, time, situation. Moves all ext x4 Procedures 04/30/16 - tracheostomy by Dr. Reyes 05/03/16 - EGD with PEG placement by Dr. Faith 06/09/16 - PEG removal 06/21/16- repeat tracheostomy by Dr. Cuellar Medications and IVs Current Medications IV Flush (NS Flush) 2 ml UNSCH PRN IVF FLUSH AFTER USING IV ACCESS Last administered on 05/23/16 05:55; Start 03/24/16 at 11:30 Iohexol (Omnipaque 350 Inj) 89 ml STK-MED ONCE IV Last administered on 13:08; Start 03/24/16 at 13:08; Stop 03/24/16 at 13:09; Status DC Albuterol/ Ipratropium (Duoneb Neb) 1 ampule Q6HR NEB NEB Last administered on 04/04/16 07:42; Start 03/24/16 at 17:00; Stop 04/04/16 at 07:43; Status DC Dextrose (D50w (Vial) Inj) 25 ml UNSCH PRN IV PUSH HYPOGLYCEMIA-SEE COMMENTS; Start 03/24/16 at 16:30; Stop 03/31/16 at 11:22; Status DC Glucagon (Glucagon Inj) 1 mg UNSCH PRN OTHER HYPOGLYCEMIA-SEE COMMENTS; Start 03/24/16 at 16:30; Stop 03/31/16 at 11:22; Status DC Insulin Human Regular (NovoLIN R SUPPLEMENTAL SCALE) 1 ACHS SLIDING SCALE SQ Last administered on 03/31/16 06:09; Start 03/24/16 at 21:00; Stop 03/31/16 at 11:16; Status DC Albuterol/ Ipratropium (Duoneb Neb) 1 ampule Q2HR NEB PRN NEB WHEEZING AND SOB Last administered on 04/20/16 08:10; Start 03/24/16 at 16:45; Stop 04/23/16 at 13:22; Status DC Enoxaparin Sodium (Lovenox Inj) 40 mg Q24H SQ Last administered on 03/25/16 17 :00; Start 03/24/16 at 17:00; Stop 03/26/16 at 16:40; Status DC Pantoprazole Sodium (Protonix) 40 mg DAILY PO Last administered on 03/26/16 08 :35; Start 03/25/16 at 09:00; Stop 03/26/16 at 16:40; Status DC Influenza Virus Vaccine (Flu (Quadrivalent) Vaccine Inj) 0.5 ml ONCE ONCE IM Last administered on 03/25/16 08:57; Start 03/25/16 at 10:00; Stop 03/25/16 at 10:01; Status DC Chlorhexidine Gluconate (Chlorhexidine 2% Cloth) 3 pack DAILY@04 TOP Last administered on 03/29/16 03:42; Start 03/25/16 at 04:00; Stop 03/29/16 at 04:01 ; Status DC Chlorhexidine Gluconate (Chlorhexidine 2% Cloth) 3 pack UNSCH PRN TOP HYGIENIC CARE; Start 03/24/16 at 19:15; Stop 03/29/16 at 19:07; Status DC Tiotropium [place] (Spiriva Inh) 18 mcg DAILY INH Last administered on 08:36; Start 03/25/16 at 13:45; Stop 05/05/16 at 13:25; Status DC Metformin HCl (Glucophage) 500 mg BIDPC PO Last administered on 03/28/16 08:18 ; Start 03/26/16 at 09:00; Stop 04/07/16 at 10:16; Status DC Betamethasone/ Clotrimazole (Lotrisone Cream) 1 applic Q12HR TOPICAL Last administered on 07/05/16 20:40; Start 03/26/16 at 09:00 Methylprednisolone Sodium Succinate 60 mg 60 mg Q12HR IV PUSH Last administered on 03/28/16 08:17; Start 03/26/16 at 13:30; Stop 03/28/16 at 10:25 ; Status DC Propofol (Diprivan 1000 Mg/100ml Inj) 100 ml @ As Directed STK-MED ONCE .ROUTE ; Start 03/26/16 at 13:16; Stop 03/26/16 at 13:17; Status DC Etomidate 40 mg 40 mg STK-MED ONCE .ROUTE ; Start 03/26/16 at 13:20; Stop at 13:21; Status DC Propofol 100 ml @ 0 mls/hr TITRATE IV Last administered on 04/15/16 06:35; Start 03/26/16 at 14:30; Stop 05/02/16 at 08:34; Status DC Fentanyl Citrate (fentaNYL DRIP) 250 ml @ 0 mls/hr TITRATE IV Last administered on 05/02/16 15:59; Start 03/26/16 at 14:30; Stop 05/02/16 at 19:46; Status DC Rocuronium [place] (Zemuron Inj) 50 mg STK-MED ONCE .ROUTE ; Start 03/26/16 at 15:38; Stop 03/26/16 at 15:39; Status DC Rocuronium [place] (Zemuron Inj) 50 mg STK-MED ONCE .ROUTE ; Start 03/26/16 at 15:40; Stop 03/26/16 at 15:41; Status DC Furosemide (Lasix Inj) 40 mg ONCE ONCE IV PUSH Last administered on 03/26/16 18:00; Start 03/26/16 at 16:45; Stop 03/26/16 at 17:08; Status DC Furosemide (Lasix Inj) 20 mg BID@09,18 IV PUSH Last administered on 03/29/16 08:06; Start 03/26/16 at 18:00; Stop 03/29/16 at 08:43; Status DC Pantoprazole Sodium (Protonix Inj) 40 mg Q24H IV PUSH Last administered on 05/24 18:00; Start 03/26/16 at 18:00; Stop 05/25/16 at 12:09; Status DC Enoxaparin Sodium 40 mg 40 mg Q12H SQ Last administered on 07/06/16 05:54; Start 03/26/16 at 18:00 Aztreonam 2000 mg/ Sodium Chloride 100 ml @ 200 mls/hr Q8H IV Last administered on 03/31/16 10:23; Start 03/26/16 at 18:00; Stop 03/31/16 at 13:55 ; Status DC Potassium Chloride 100 ml @ 50 mls/hr Q2H PRN IV For Potassium 2.8 - 3.2 mEq/ L Last administered on 05/03/16 23:31; Start 03/26/16 at 16:45; Stop 05/17/16 at 17:12; Status DC Potassium Chloride (KCl 20 Meq Premix Inj) 100 ml @ 50 mls/hr Q2H PRN IV For Potassium 2.8 - 3.2 mEq/L Last administered on 05/07/16 23:26; Start 03/26/16 at 16:45; Stop 05/17/16 at 17:12; Status DC Potassium Chloride 40 meq 40 meq UNSCH PRN PO/TUBE For Potassium 3.3 - 3.5 mEq/ L Last administered on 05/17/16 09:28; Start 03/26/16 at 16:45; Stop 05/17/16 at 17:12; Status DC Potassium Chloride 100 ml @ 25 mls/hr UNSCH PRN IV For Potassium 3.3 - 3.5 mEq /L Last administered on 04/20/16 09:17; Start 03/26/16 at 16:45; Stop 05/17/16 at 17:12; Status DC Potassium Chloride 100 ml @ 50 mls/hr Q2H PRN IV For Potassium 3.3 - 3.5 mEq/ L Last administered on 05/08/16 11:22; Start 03/26/16 at 16:45; Stop 05/17/16 at 17:12; Status DC Magnesium Sulfate/ Sodium Chloride (Magnesium Sulfate Inj/NS Inj) 100 ml @ 50 mls/hr UNSCH PRN IV For Magnesium 0.9 - 1.1 mg/dL; Start 03/26/16 at 16:45; Stop 05/17/16 at 17:12; Status DC Magnesium Oxide 800 mg 800 mg UNSCH PRN PO For Magnesium 1.2 - 1.6 mg/dL; Start 03/26/16 at 16:45; Stop 05/17/16 at 17:12; Status DC Magnesium Sulfate/ Sodium Chloride (Magnesium Sulfate Inj/NS Inj) 100 ml @ 50 mls/hr UNSCH PRN IV For Magnesium 1.2 - 1.6 mg/dL; Start 03/26/16 at 16:45; Stop 05/17/16 at 17:12; Status DC Potassium Phosphate 2000 mg 2,000 mg Q4H PRN PO For Phosphorus < 2.5 mg/dL Last administered on 04/01/16 05:08; Start 03/26/16 at 16:45; Stop 05/17/16 at 17:12; Status DC Sodium Phosphate/ Sodium Chloride (Sodium Phosphate Inj/NS 250 ml Inj) 250 ml @ 42 mls/hr UNSCH PRN IV For Phosphorus < 2.5 mg/dL Last administered on 14:19; Start 03/26/16 at 16:45; Stop 05/17/16 at 17:12; Status DC Potassium Chloride (KCl 40 Meq/30 ml Liq) 40 meq UNSCH PRN PO/TUBE SEE LABEL COMMENTS; Start 03/26/16 at 16:45; Stop 05/17/16 at 17:12; Status DC Potassium Phosphate 2000 mg 2,000 mg UNSCH PRN PO/TUBE SEE LABEL COMMENTS; Start 03/26/16 at 16:45; Stop 05/17/16 at 17:12; Status DC Potassium Phosphate/Sodium Chloride (Potassium Phosphate Inj/NS 250 ml Inj) 260 ml @ 42 mls/hr UNSCH PRN IV SEE LABEL COMMENTS Last administered on 05/03/16 08:23; Start 03/26/16 at 16:45; Stop 05/17/16 at 17:12; Status DC Potassium Chloride 40 meq 40 meq DAILY PO Last administered on 04/01/16 09:18 ; Start 03/26/16 at 18:00; Stop 04/02/16 at 07:20; Status DC Metronidazole (Flagyl 500 Mg Inj) 100 ml @ 100 mls/hr Q8H IV Last administered on 04/10/16 07:44; Start 03/27/16 at 08:00; Stop 04/10/16 at 13:30; Status DC Protein 1 pack 1 pack TID G-TUBE Last administered on 07/05/16 16:34; Start at 09:00 Vancomycin HCl 1500 mg/Sodium Chloride 515 ml @ 257.5 mls/ hr ONCE ONCE IV Last administered on 03/27/16 10:21; Start 03/27/16 at 09:00; Stop 03/27/16 at 10:59; Status DC Pharmacy Profile Note 0 ml @ 0 mls/hr UNSCH OTHER ; Start 03/27/16 at 08:00; Stop 03/31/16 at 13:55; Status DC Vancomycin HCl/ Sodium Chloride (Vancomycin Inj/ NS 500 ml Inj) 520 ml @ 260 mls/hr Q24H IV Last administered on 03/30/16 04:04; Start 03/28/16 at 04:00; Stop 03/30/16 at 11:11; Status DC Miscellaneous Information SPECIFIC LAB TO BE ISHAAN... ONCE ONCE XX Last administered on 03/30/16 03:45; Start 03/30/16 at 03:45; Stop 03/30/16 at 03:46 ; Status DC Insulin Detemir 5 units 5 units Q12HR SQ Last administered on 03/31/16 21:17; Start 03/28/16 at 11:00; Stop 04/01/16 at 08:57; Status DC Pharmacy Profile Note (Vancomycin Consult Pharmacy) 0 ml @ 0 mls/hr UNSCH OTHER ; Start 03/28/16 at 10:15; Status UNV Methylprednisolone Sodium Succinate (SoluMEDROL INJ) 40 mg Q12HR IV PUSH Last administered on 04/17/16 07:26; Start 03/28/16 at 21:00; Stop 04/17/16 at 09:03 ; Status DC Docusate Sodium (Colace Liq) 100 mg Q12HR PO Last administered on 06/29/16 08: 14; Start 03/29/16 at 09:00 Sennosides (Senna Liq) 8.8 mg DAILY PO Last administered on 03/31/16 08:40; Start 03/29/16 at 09:00; Stop 04/01/16 at 08:57; Status DC Furosemide (Lasix Inj) 40 mg BID@09,18 IV PUSH ; Start 03/29/16 at 18:00; Stop 03/29/16 at 18:00; Status DC Furosemide 40 mg 40 mg BID@09,18 IV PUSH Last administered on 04/01/16 17:37; Start 03/29/16 at 09:00; Stop 04/02/16 at 07:14; Status DC Vancomycin HCl/ Sodium Chloride (Vancomycin Inj/ NS 500 ml Inj) 517.5 ml @ 250 mls/hr Q12H IV Last administered on 03/31/16 03:19; Start 03/30/16 at 16:00; Stop 03/31/16 at 13:55; Status DC Miscellaneous Information SPECIFIC LAB TO BE ISHAAN... ONCE ONCE XX Last administered on 03/31/16 15:41; Start 03/31/16 at 15:45; Stop 03/31/16 at 15:46 ; Status DC Acetaminophen (Tylenol 650 Mg/ 20 ml Liq) 650 mg Q6H PRN PO fever or pain 1-5 Last administered on 06/23/16 21:37; Start 03/30/16 at 15:45 Bumetanide (Bumex Inj) 1 mg ONCE ONCE IV PUSH ; Start 03/31/16 at 09:30; Stop 03/31/16 at 10:40; Status DC Dextrose (D50w (Vial) Inj) 25 ml UNSCH PRN IV PUSH HYPOGLYCEMIA-SEE COMMENTS; Start 03/31/16 at 11:15; Stop 04/03/16 at 17:53; Status DC Glucagon (Glucagon Inj) 1 mg UNSCH PRN OTHER HYPOGLYCEMIA-SEE COMMENTS; Start 03/31/16 at 11:15; Stop 04/07/16 at 10:46; Status DC Insulin Human Regular 1 1 Q6H SQ Last administered on 04/03/16 17:48; Start at 12:00; Stop 04/03/16 at 17:54; Status DC Levofloxacin/ Dextrose 150 ml @ 100 mls/hr Q24H IV Last administered on 14:07; Start 03/31/16 at 14:00; Stop 04/16/16 at 09:51; Status DC Fluconazole/ Sodium Chloride 200 ml @ 100 mls/hr Q24H IV Last administered on 04/09/16 15:48; Start 03/31/16 at 16:00; Stop 04/10/16 at 13:31; Status DC Linezolid 300 ml @ 300 mls/hr Q12H IV Last administered on 04/04/16 02:45; Start 03/31/16 at 15:00; Stop 04/04/16 at 09:59; Status DC Cisatracurium Besylate 100 mg/ Sodium Chloride 250 ml @ 0 mls/hr TITRATE IV Last administered on 04/14/16 11:39; Start 04/01/16 at 09:00; Stop 04/15/16 at 09:02; Status DC Epoprostenol Sodium/Sodium Chloride (Flolan (30,000 Ng/ml) Neb/NS Inj) 100 ml @ 8 mls/hr Q8H NEB Last administered on 04/15/16 02:32; Start 04/01/16 at 10:00 ; Stop 04/15/16 at 09:02; Status DC Insulin Detemir (Levemir Inj) 15 units Q12HR SQ Last administered on 04/01/16 20:13; Start 04/01/16 at 09:00; Stop 04/02/16 at 07:14; Status DC Sennosides (Senna Liq) 8.8 mg BID PO/TUBE Last administered on 06/26/16 09:07 ; Start 04/01/16 at 09:00 Polyethylene Glycol (Miralax) 17 gm BID PO Last administered on 04/03/16 21:14 ; Start 04/01/16 at 09:00; Stop 04/23/16 at 13:31; Status DC Lactulose (Lactulose Liq) 30 ml QID PO Last administered on 04/01/16 20:13; Start 04/01/16 at 09:00; Stop 04/02/16 at 07:14; Status DC Methylnaltrexone [place] (Relistor Inj) 12 mg ONCE ONCE SQ Last administered on 04/01/16 11:44; Start 04/01/16 at 10:30; Stop 04/01/16 at 10:31; Status DC Metoclopramide HCl (Reglan Inj) 5 mg Q8HR IV PUSH Last administered on 05:42; Start 04/01/16 at 14:00; Stop 04/11/16 at 09:15; Status DC Glycerin (Glycerin Adult Supp) 2 gm BID PRN RECTAL CONSTIPATION Last administered on 04/25/16 10:22; Start 04/01/16 at 09:00 Glycerin (Glycerin Adult Supp) 2 gm ONCE ONCE RECTAL Last administered on 04/01 10:52; Start 04/01/16 at 09:30; Stop 04/01/16 at 09:31; Status DC Mineral Oil (Mineral Oil Liq) 15 ml ONCE ONCE PO Last administered on 10:00; Start 04/01/16 at 10:00; Stop 04/01/16 at 10:01; Status DC Chlorhexidine Gluconate 15 ml 15 ml BID@08,20 MT Last administered on 07/02/16 20:00; Start 04/01/16 at 20:00 Midazolam HCl 100 ml @ 0 mls/hr TITRATE IV Last administered on 05/01/16 14:25 ; Start 04/01/16 at 11:45; Stop 05/02/16 at 08:35; Status DC Norepinephrine Bitartrate (Levophed-Dextrose Drip) 250 ml @ 0 mls/hr TITRATE IV Last administered on 04/01/16 21:15; Start 04/01/16 at 20:30; Stop 04/07/16 at 10:10; Status DC Furosemide (Lasix Inj) 20 mg BID@09,18 IV PUSH Last administered on 04/03/16 08:17; Start 04/02/16 at 09:00; Stop 04/03/16 at 12:58; Status DC Insulin Detemir (Levemir Inj) 25 units Q12HR SQ Last administered on 04/03/16 08:17; Start 04/02/16 at 09:00; Stop 04/03/16 at 12:48; Status DC IV Flush (NS Flush) DAILY IVF Last administered on 07/02/16 08:50; Start 04/03 at 09:00 IV Flush (NS Flush) UNSCH PRN IVF SEE PROTOCOL Last administered on 04/22/16 07:42; Start 04/02/16 at 09:30 Artificial Tears (Lacrilube Opht Oint) 1 applic Q12HR EACH EYE Last administered on 06/02/16 08:46; Start 04/02/16 at 12:00; Stop 06/02/16 at 14:00; Status DC Lactobacillus Acidophilus (Lactinex) 1 tab TID PO Last administered on 16:34; Start 04/03/16 at 13:00 Insulin Detemir (Levemir Inj) 40 units Q12HR SQ ; Start 04/03/16 at 21:00; Stop 04/03/16 at 21:00; Status DC Insulin Human NPH 15 units 15 units ONCE ONCE SQ Last administered on 13:08; Start 04/03/16 at 13:00; Stop 04/03/16 at 13:01; Status DC Sodium Chloride (NS 1000 ml Inj) 1,000 ml @ 999 mls/hr BOLUS ONCE IV Last administered on 04/03/16 13:10; Start 04/03/16 at 13:00; Stop 04/03/16 at 14:00 ; Status DC Sodium Polystyrene Sulfonate 15 gm 15 gm ONCE ONCE PO Last administered on 13:22; Start 04/03/16 at 13:00; Stop 04/03/16 at 13:08; Status DC Insulin Human Regular/Sodium Chloride (NovoLIN R (IV INFUSION)/NS Inj) 100 ml @ 0 mls/hr TITRATE IV Last administered on 04/03/16 22:44; Start 04/03/16 at 18: 00; Stop 04/04/16 at 09:12; Status DC Dextrose (D50w (Vial) Inj) 25 ml UNSCH PRN IV PUSH SEE LABEL COMMENTS; Start at 17:45; Stop 04/04/16 at 09:14; Status DC Miscellaneous Information 1 ONCE ONCE XX Last administered on 04/03/16 20:27 ; Start 04/03/16 at 17:45; Stop 04/03/16 at 17:52; Status DC Albuterol/ Ipratropium (Duoneb Neb) 1 ampule Q4HR NEB NEB Last administered on 04/08/16 03:48; Start 04/04/16 at 08:00; Stop 04/08/16 at 08:00; Status DC Furosemide 20 mg 20 mg BID@09,18 IV PUSH Last administered on 04/15/16 08:12; Start 04/04/16 at 09:00; Stop 04/15/16 at 09:53; Status DC Insulin Human Regular/Sodium Chloride (NovoLIN R (IV INFUSION)/NS Inj) 100 ml @ 0 mls/hr TITRATE IV Last administered on 04/07/16 04:33; Start 04/04/16 at 09:00 ; Stop 04/07/16 at 10:11; Status DC Dextrose (D50w (Vial) Inj) 25 ml UNSCH PRN IV PUSH SEE LABEL COMMENTS; Start at 09:00; Stop 04/07/16 at 10:46; Status DC Miscellaneous Information 1 ONCE ONCE XX Last administered on 04/04/16 10:00; Start 04/04/16 at 10:00; Stop 04/04/16 at 10:01; Status DC Insulin Detemir (Levemir Inj) 60 units Q12HR SQ Last administered on 04/07/16 07:41; Start 04/05/16 at 11:00; Stop 04/08/16 at 08:14; Status DC Dextrose (D50w (Vial) Inj) 25 ml UNSCH PRN IV PUSH HYPOGLYCEMIA-SEE COMMENTS; Start 04/07/16 at 10:15; Stop 04/07/16 at 17:03; Status DC Glucagon (Glucagon Inj) 1 mg UNSCH PRN OTHER HYPOGLYCEMIA-SEE COMMENTS; Start 04/07/16 at 10:15; Stop 04/07/16 at 17:03; Status DC Insulin Human Regular (NovoLIN R SUPPLEMENTAL SCALE) 1 Q6H SQ Last administered on 04/07/16 10:56; Start 04/07/16 at 11:00; Stop 04/07/16 at 17:01; Status DC Insulin Detemir (Levemir Inj) 20 units Q12HR SQ Last administered on 04/08/16 07:26; Start 04/07/16 at 21:00; Stop 04/08/16 at 08:14; Status DC Dextrose (D50w (Vial) Inj) 25 ml UNSCH PRN IV PUSH HYPOGLYCEMIA-SEE COMMENTS; Start 04/07/16 at 17:00; Stop 05/13/16 at 13:50; Status DC Glucagon (Glucagon Inj) 1 mg UNSCH PRN OTHER HYPOGLYCEMIA-SEE COMMENTS; Start 04/07/16 at 17:00; Stop 05/13/16 at 13:50; Status DC Insulin Human Regular (NovoLIN R SUPPLEMENTAL SCALE) 1 Q6H SQ Last administered on 05/11/16 17:08; Start 04/07/16 at 18:00; Stop 05/13/16 at 13:50 ; Status DC Insulin Detemir 24 units 24 units Q12HR SQ Last administered on 04/09/16 07:37 ; Start 04/08/16 at 21:00; Stop 04/09/16 at 10:01; Status DC Vancomycin HCl 1750 mg/Sodium Chloride 517.5 ml @ 258.75 mls/ hr ONCE ONCE IV Last administered on 04/08/16 14:42; Start 04/08/16 at 13:00; Stop 04/08/16 at 14:59; Status DC Sodium Chloride (NS 500 ml Inj) 500 ml @ 500 mls/hr BOLUS ONCE IV Last administered on 04/08/16 17:20; Start 04/08/16 at 17:15; Stop 04/08/16 at 18:14; Status DC Insulin Detemir 30 units 30 units Q12HR SQ Last administered on 04/10/16 08:29 ; Start 04/09/16 at 21:00; Stop 04/10/16 at 10:25; Status DC Pharmacy Profile Note 0 ml @ 0 mls/hr UNSCH OTHER ; Start 04/09/16 at 10:30; Stop 04/12/16 at 13:55; Status DC Vancomycin HCl/ Sodium Chloride (Vancomycin Inj/ NS 500 ml Inj) 515 ml @ 257.5 mls/ hr Q12H IV Last administered on 04/10/16 11:16; Start 04/09/16 at 12:00; Stop 04/10/16 at 13:51; Status DC Miscellaneous Information SPECIFIC LAB TO BE DRAWN:[facility]... ONCE ONCE XX ; Start 04/10/16 at 11:45; Stop 04/10/16 at 11:46; Status DC Insulin Detemir 35 units 35 units Q12HR SQ Last administered on 04/11/16 08:07 ; Start 04/10/16 at 21:00; Stop 04/11/16 at 09:15; Status DC Vancomycin HCl/ Sodium Chloride (Vancomycin Inj/ NS 500 ml Inj) 520 ml @ 260 mls/hr Q12H IV Last administered on 04/12/16 08:14; Start 04/10/16 at 20:00; Stop 04/12/16 at 13:55; Status DC Miscellaneous Information SPECIFIC LAB TO BE ISHAAN... ONCE ONCE XX Last administered on 04/12/16 07:45; Start 04/12/16 at 07:45; Stop 04/12/16 at 07:46; Status DC Insulin Detemir (Levemir Inj) 45 units Q12HR SQ Last administered on 04/23/16 08:29; Start 04/11/16 at 21:00; Stop 04/23/16 at 13:24; Status DC Metoclopramide HCl 10 mg 10 mg Q8HR IV PUSH Last administered on 05/25/16 06: 05; Start 04/11/16 at 14:00; Stop 05/25/16 at 12:09; Status DC Sodium Chloride (NS 1000 ml Inj) 2,000 ml @ 0 mls/hr NOW ONCE IV Last administered on 04/11/16 21:01; Start 04/11/16 at 21:00; Stop 04/11/16 at 21:01; Status DC Miscellaneous Information SPECIFIC LAB TO BE DRAWN:VANCOMYCIN TROUGH DATE TO... ONCE ONCE XX ; Start 04/13/16 at 19:45; Stop 04/13/16 at 19:46; Status Cancel Furosemide 20 mg 20 mg Q6H IV PUSH Last administered on 04/16/16 08:40; Start 04/12/16 at 15:00; Stop 04/16/16 at 09:25; Status DC Epoprostenol Sodium 30 ml/ Sodium Chloride 67.5 ml @ 8 mls/hr Q8H NEB ; Start 04/15/16 at 10:00; Stop 04/15/16 at 10:00; Status DC Epoprostenol Sodium/Sodium Chloride (Flolan (30,000 Ng/ml) Neb/NS Inj) 100 ml @ 8 mls/hr Q8H NEB Last administered on 04/18/16 02:09; Start 04/15/16 at 10:00 ; Stop 04/18/16 at 10:15; Status DC Furosemide (Lasix Inj) 20 mg Q8H IV PUSH Last administered on 04/23/16 08:31; Start 04/16/16 at 17:00; Stop 04/23/16 at 13:44; Status DC Methylprednisolone Sodium Succinate 40 mg 40 mg DAILY IV PUSH Last administered on 05/02/16 08:11; Start 04/18/16 at 09:00; Stop 05/02/16 at 08:39; Status DC Epoprostenol Sodium 25 ml/ Sodium Chloride 100 ml @ 8 mls/hr Q8H NEB Last administered on 04/19/16 13:12; Start 04/18/16 at 15:00; Stop 04/19/16 at 15:59 ; Status DC Vancomycin HCl 1500 mg/Sodium Chloride 515 ml @ 257.5 mls/ hr ONCE ONCE IV Last administered on 04/19/16 13:45; Start 04/19/16 at 13:00; Stop 04/19/16 at 14:59; Status DC Epoprostenol Sodium 12.5 ml/ Sodium Chloride 100 ml @ 8 mls/hr Q8H NEB Last administered on 04/20/16 00:29; Start 04/19/16 at 16:00; Stop 04/20/16 at 15:11 ; Status DC Pharmacy Profile Note 0 ml @ 0 mls/hr UNSCH OTHER ; Start 04/20/16 at 14:15; Stop 04/29/16 at 10:33; Status DC Vancomycin HCl/ Sodium Chloride (Vancomycin Inj/ NS 500 ml Inj) 520 ml @ 250 mls/hr Q12H IV Last administered on 04/24/16 05:53; Start 04/20/16 at 18:00; Stop 04/24/16 at 09:15; Status DC Miscellaneous Information SPECIFIC LAB TO BE DRAWN:VANCO TROUGH DATE TO... ONCE ONCE XX Last administered on 04/22/16 05:45; Start 04/22/16 at 05:45; Stop 04/22/16 at 05:46; Status DC Potassium Bicarb/ Potassium Chloride (K-Lyte Cl Eff) 25 meq Q12HR PO Last administered on 04/28/16 07:49; Start 04/21/16 at 21:00; Stop 05/27/16 at 08:44 ; Status DC Artificial Tears (Tears Naturale Opth Soln) 1 drop Q4H EACH EYE Last administered on 07/05/16 16:34; Start 04/21/16 at 18:00 Water (Free Water) 200 ml Q6HR G-TUBE Last administered on 04/30/16 12:00; Start 04/22/16 at 18:00; Stop 05/01/16 at 17:19; Status DC Albuterol/ Ipratropium (Duoneb Neb) 1 ampule Q6HR NEB NEB Last administered on 04/27/16 08:03; Start 04/23/16 at 16:00; Stop 04/27/16 at 16:00; Status DC Albuterol/ Ipratropium (Duoneb Neb) 1 ampule Q2HR NEB PRN NEB [id number] Last administered on 05/11/16 15:54; Start 04/23/16 at 13:15; Stop 05/17/16 at 20:14 ; Status DC Insulin Detemir (Levemir Inj) 55 units Q12HR SQ Last administered on 04/24/16 08:34; Start 04/23/16 at 21:00; Stop 04/24/16 at 12:17; Status DC Polyethylene Glycol (Miralax) 17 gm BID PO Last administered on 07/01/16 20:31 ; Start 04/24/16 at 09:00 Furosemide 20 mg 20 mg BID IV PUSH Last administered on 04/28/16 07:50; Start 04/23/16 at 21:00; Stop 04/28/16 at 11:08; Status DC Vancomycin HCl/ Sodium Chloride (Vancomycin Inj/ NS 500 ml Inj) 515 ml @ 257.5 mls/ hr Q12H IV Last administered on 04/28/16 11:59; Start 04/24/16 at 23:00; Stop 04/28/16 at 14:04; Status DC Miscellaneous Information SPECIFIC LAB TO BE ... ONCE ONCE XX Last administered on 04/25/16 22:45; Start 04/25/16 at 22:45; Stop 04/25/16 at 22:46 ; Status DC Insulin Detemir (Levemir Inj) 65 units Q12HR SQ Last administered on 04/25/16 09:00; Start 04/24/16 at 21:00; Stop 04/25/16 at 15:10; Status DC Polyethylene Glycol (Miralax) 17 gm ONCE ONCE PO Last administered on 16:21; Start 04/25/16 at 15:15; Stop 04/25/16 at 15:16; Status DC Polyethylene Glycol (Miralax) 17 gm DAILY PO ; Start 04/26/16 at 09:00; Stop at 11:33; Status DC Mineral Oil (Mineral Oil Liq) 15 ml ONCE ONCE PO Last administered on 16:21; Start 04/25/16 at 16:00; Stop 04/25/16 at 16:01; Status DC Potassium Chloride (KCl 40 Meq/30 ml Liq) 40 meq ONCE ONCE PO Last administered on 04/25/16 16:21; Start 04/25/16 at 15:15; Stop 04/25/16 at 15:16 ; Status DC Insulin Detemir (Levemir Inj) 75 units Q12HR SQ Last administered on 04/26/16 09:13; Start 04/25/16 at 21:00; Stop 04/26/16 at 14:43; Status DC Methylnaltrexone [place] (Relistor Inj) 12 mg ONCE ONCE SQ Last administered on 04/25/16 16:22; Start 04/25/16 at 16:00; Stop 04/25/16 at 16:01; Status DC Miscellaneous Information SPECIFIC LAB TO BE DRAWN:VANCO TROUGH DATE TO BE DR... ONCE ONCE XX Last administered on 04/28/16 10:45; Start 04/28/16 at 10: 45; Stop 04/28/16 at 10:46; Status DC Methylnaltrexone [place] (Relistor Inj) 12 mg ONCE ONCE SQ Last administered on 04/26/16 15:18; Start 04/26/16 at 14:30; Stop 04/26/16 at 14:56; Status DC Lactulose (Lactulose Liq) 30 ml QID PO Last administered on 04/28/16 07:47; Start 04/26/16 at 18:00; Stop 05/27/16 at 08:44; Status DC Mineral Oil (Mineral Oil Liq) 15 ml ONCE ONCE PO Last administered on 15:19; Start 04/26/16 at 14:30; Stop 04/26/16 at 14:56; Status DC Sennosides (Senna Liq) 8.8 mg ONCE ONCE PO Last administered on 04/26/16 15: 25; Start 04/26/16 at 14:30; Stop 04/26/16 at 14:56; Status DC Magnesium Citrate (Citroma Liq) 300 ml ONCE ONCE PO Last administered on 15:25; Start 04/26/16 at 14:45; Stop 04/26/16 at 14:56; Status DC Potassium Chloride (KCl 40 Meq/30 ml Liq) 40 meq ONCE ONCE PO Last administered on 04/26/16 15:25; Start 04/26/16 at 14:45; Stop 04/26/16 at 14:56 ; Status DC Insulin Detemir (Levemir Inj) 80 units Q12HR SQ Last administered on 04/28/16 07:49; Start 04/26/16 at 21:00; Stop 04/28/16 at 11:19; Status DC Nystatin 1 applic 1 applic Q12HR TOPICAL Last administered on 07/05/16 20:40; Start 04/27/16 at 11:00 Aztreonam/Sodium Chloride (Azactam Inj/NS Inj) 100 ml @ 200 mls/hr Q8H IV Last administered on 04/29/16 02:39; Start 04/27/16 at 10:00; Stop 04/29/16 at 10:34; Status DC Potassium Chloride (KCl 40 Meq/30 ml Liq) 40 meq ONCE ONCE PO Last administered on 04/27/16 13:00; Start 04/27/16 at 13:00; Stop 04/27/16 at 13:02 ; Status DC Albuterol/ Ipratropium (Duoneb Neb) 1 ampule Q4HR NEB NEB Last administered on 05/02/16 07:53; Start 04/28/16 at 12:00; Stop 05/02/16 at 12:00; Status DC Sodium Chloride 2 ml 2 ml Q8HR NEB NEB Last administered on 05/01/16 07:21; Start 04/28/16 at 16:00; Stop 05/01/16 at 15:59; Status DC Sodium Chloride/ Sterile Water (Sodium Chloride 23.4% Inj/Sterile Water For Inj ) 1,009.625 ml @ 84 mls/hr Q12H2M IV Last administered on 04/28/16 13:23; Start 04/28/16 at 13:00; Stop 04/29/16 at 01:01; Status DC Insulin Detemir 70 units 70 units Q12HR SQ Last administered on 05/03/16 08:08 ; Start 04/28/16 at 21:00; Stop 05/05/16 at 17:18; Status DC Vancomycin HCl/ Sodium Chloride (Vancomycin Inj/ NS 250 ml Inj) 262.5 ml @ 250 mls/hr Q12H IV Last administered on 04/29/16 00:18; Start 04/28/16 at 23:00; Stop 04/29/16 at 10:34; Status DC Miscellaneous Information SPECIFIC LAB TO BE ISHAAN... ONCE ONCE XX ; Start at 10:45; Stop 04/30/16 at 10:45; Status DC Clindamycin Phosphate/Sodium Chloride (Cleocin Inj/NS Inj) 104 ml @ 208 mls/hr Q8H IV Last administered on 05/06/16 15:52; Start 04/29/16 at 12:00; Stop at 12:00; Status DC Lidocaine/ Epinephrine (Xylocaine-Epi 1%-1:100,000 Inj) 30 ml STK-MED ONCE .ROUTE ; Start 04/30/16 at 13:00; Stop 04/30/16 at 13:01; Status DC Fentanyl Citrate 250 mcg 250 mcg STK-MED ONCE .ROUTE ; Start 04/30/16 at 15:28; Stop 04/30/16 at 15:29; Status DC Dexmedetomidine HCl (Precedex Inj) 50 ml @ 0 mls/hr TITRATE IV Last administered on 05/02/16 18:32; Start 05/01/16 at 17:00; Stop 05/02/16 at 19:00; Status DC Water (Free Water) 100 ml Q6HR G-TUBE Last administered on 06/09/16 12:00; Start 05/01/16 at 18:00; Stop 06/10/16 at 15:51; Status DC Fentanyl (Duragesic 25 Mcg Patch.72 Hr) 1 patch Q3D TD Last administered on 09:05; Start 05/02/16 at 09:00; Stop 06/19/16 at 08:05; Status DC Miscellaneous Information 1 Q3D T-DERMAL Last administered on 06/13/16 08:23; Start 05/05/16 at 09:00; Stop 06/19/16 at 08:05; Status DC Oxycodone HCl (Roxicodone Intensol Liq) 5 mg Q6H PRN PO PAIN SCALE 7 TO 10 Last administered on 05/23/16 05:54; Start 05/02/16 at 08:45; Stop 06/05/16 at 22 :00; Status DC Acetaminophen/ Hydrocodone Bitart ([place] 5-325 Mg) 1 tab Q6H PO Last administered on 05/06/16 15:52; Start 05/02/16 at 09:00; Stop 05/06/16 at 18:52; Status DC Methylprednisolone Sodium Succinate (SoluMEDROL INJ) 30 mg DAILY IV PUSH Last administered on 05/04/16 07:55; Start 05/03/16 at 09:00; Stop 05/04/16 at 10:09; Status DC Midazolam HCl (Versed Inj) 5 mg STK-MED ONCE .ROUTE Last administered on 16:18; Start 05/02/16 at 16:14; Stop 05/02/16 at 16:15; Status DC Lorazepam (Ativan Inj) 2 mg STK-MED ONCE .ROUTE Last administered on 05/02/16 16:19; Start 05/02/16 at 16:15; Stop 05/02/16 at 16:16; Status DC Midazolam HCl (Versed Inj) 5 mg NOW ONCE IV Last administered on 05/02/16 16: 30; Start 05/02/16 at 16:30; Stop 05/02/16 at 16:31; Status DC Lorazepam 2 mg 2 mg Q4H PRN IVP AGITATION Last administered on 06/13/16 21:22 ; Start 05/02/16 at 16:30; Stop 06/19/16 at 08:05; Status DC Dexmedetomidine HCl/Sodium Chloride (Precedex Inj/NS 250 ml Inj) 260 ml @ 0 mls/ hr TITRATE IV Last administered on 05/04/16 09:53; Start 05/02/16 at 19:01; Stop 05/04/16 at 16:31; Status DC Hydralazine HCl (Apresoline Inj) 10 mg Q4H PRN IV PUSH SBP >165 Last administered on 05/03/16 06:20; Start 05/02/16 at 22:00; Stop 06/05/16 at 20:34; Status DC Propofol (Diprivan 200 Mg/20 ml Inj) 170 mg STK-MED ONCE IV ; Start 05/03/16 at 15:06; Stop 05/03/16 at 15:07; Status DC Quetiapine Fumarate (SEROquel) 25 mg BID PO Last administered on 06/21/16 10: 58; Start 05/04/16 at 09:00; Stop 06/21/16 at 13:25; Status DC Methylprednisolone Sodium Succinate (SoluMEDROL INJ) 20 mg DAILY IV PUSH Last administered on 05/11/16 08:02; Start 05/05/16 at 09:00; Stop 05/12/16 at 09:13 ; Status DC Fentanyl Citrate (fentaNYL INJ) 50 mcg NOW ONCE IV Last administered on 01:03; Start 05/05/16 at 01:00; Stop 05/05/16 at 01:02; Status DC Metoprolol Tartrate (Lopressor Inj) 2.5 mg NOW ONCE IV PUSH Last administered on 05/05/16 04:17; Start 05/05/16 at 04:00; Stop 05/05/16 at 04:01; Status DC Ondansetron HCl (Zofran Inj) 4 mg Q6H PRN IV NAUSEA OR VOMITING; Start 05/05/16 at 06:45 Bumetanide (Bumex Inj) 0.5 mg DAILY IV PUSH Last administered on 05/24/16 09: 25; Start 05/05/16 at 09:00; Stop 05/24/16 at 10:39; Status DC Albuterol/ Ipratropium (Duoneb Neb) 1 ampule TID NEB INH Last administered on 05/09/16 13:05; Start 05/05/16 at 14:00; Stop 05/09/16 at 14:00; Status DC Insulin Detemir (Levemir Inj) 50 units Q12HR SQ Last administered on 05/11/16 20:54; Start 05/05/16 at 21:00; Stop 05/13/16 at 13:50; Status DC Acetaminophen/ Hydrocodone Bitart ([place] 5-325 Mg) 1 tab Q12HR PO Last administered on 06/18/16 19:40; Start 05/06/16 at 21:00; Stop 06/19/16 at 08:05 ; Status DC Propofol 200 mg 200 mg STK-MED ONCE IV ; Start 04/30/16 at 15:12; Stop 05/07/16 at 15:12; Status DC Parenteral Electrolytes (Normosol R Inj) 2,000 ml @ As Directed STK-MED ONCE IV ; Start 04/30/16 at 15:12; Stop 05/07/16 at 15:12; Status DC Potassium Chloride (KCl) 10 meq DAILY PO Last administered on 07/05/16 10:14; Start 05/10/16 at 09:30 Simethicone (Phazyme Chew) 125 mg DAILY PRN PO gas Last administered on 15:00; Start 05/11/16 at 15:00 Insulin Detemir (Levemir Inj) 35 units Q12HR SQ Last administered on 05/30/16 20:26; Start 05/13/16 at 21:00; Stop 06/05/16 at 22:00; Status DC Dextrose (D50w (Vial) Inj) 25 ml UNSCH PRN IV PUSH HYPOGLYCEMIA-SEE COMMENTS; Start 05/13/16 at 14:00; Stop 05/31/16 at 21:54; Status DC Glucagon (Glucagon Inj) 1 mg UNSCH PRN OTHER HYPOGLYCEMIA-SEE COMMENTS; Start 05/13/16 at 14:00; Stop 05/31/16 at 21:54; Status DC Insulin Human Regular (NovoLIN R SUPPLEMENTAL SCALE) 1 ACHS SLIDING SCALE SQ Last administered on 05/25/16 06:19; Start 05/13/16 at 16:00; Stop 05/25/16 at 12:14; Status DC Silver Sulfadiazine (Silvadene 1% Cream (400 Gm)) 1 applic DAILY TOPICAL Last administered on 07/05/16 10:16; Start 05/16/16 at 11:00 Pregabalin (Lyrica) 25 mg DAILY PO Last administered on 05/19/16 08:22; Start 05/17/16 at 11:45; Stop 05/20/16 at 10:29; Status DC Ipratropium [place] (Atrovent Neb) 0.5 mg Q2HR NEB PRN NEB wheezing Last administered on 05/27/16 00:28; Start 05/17/16 at 21:00 Diltiazem HCl (Cardizem) 30 mg ONCE ONCE PO Last administered on 05/17/16 22: 44; Start 05/17/16 at 22:45; Stop 05/17/16 at 22:46; Status DC Potassium Chloride (KCl) 40 meq ONCE ONCE PO Last administered on 05/17/16 22 :44; Start 05/17/16 at 22:45; Stop 05/17/16 at 22:46; Status DC Pregabalin (Lyrica) 50 mg DAILY PO Last administered on 06/18/16 08:33; Start 05/21/16 at 09:00; Stop 06/19/16 at 08:05; Status DC Baclofen (Lioresal) 10 mg Q12HR PO Last administered on 06/18/16 19:39; Start 05/24/16 at 10:45; Stop 06/19/16 at 08:05; Status DC Bumetanide (Bumetanide) 0.5 mg ONCE ONCE PO Last administered on 05/25/16 09: 21; Start 05/25/16 at 09:00; Stop 05/25/16 at 09:01; Status DC Miscellaneous (Pill Splitter) 1 ea UNSCH PRN OTHER SEE LABEL COMMENTS; Start at 10:45 Pantoprazole Sodium (Protonix) 40 mg DAILY PO Last administered on 07/05/16 10: 15; Start 05/26/16 at 09:00 Insulin Human Regular (NovoLIN R SUPPLEMENTAL SCALE) 1 Q12HR SQ Last administered on 05/26/16 22:40; Start 05/25/16 at 19:00; Stop 05/27/16 at 08:44 ; Status DC Metoclopramide HCl (Reglan) 10 mg Q8HR G-TUBE Last administered on 06/02/16 14: 43; Start 05/25/16 at 14:00; Stop 06/02/16 at 14:49; Status DC Albuterol Sulfate 2.5 mg 2.5 mg ONCE ONCE NEB Last administered on 05/27/16 00:45; Start 05/27/16 at 00:45; Stop 05/27/16 at 00:46; Status DC Sodium Chloride (NS 1000 ml Inj) 999 ml @ 0 mls/hr BOLUS ONCE IV Last administered on 05/27/16 02:01; Start 05/27/16 at 02:00; Stop 05/27/16 at 04:31 ; Status DC Adenosine (Adenocard Inj) 6 mg NOW ONCE IV PUSH Last administered on 02:01; Start 05/27/16 at 02:01; Stop 05/27/16 at 04:31; Status DC Adenosine (Adenocard Inj) 12 mg NOW ONCE IV PUSH Last administered on 02:11; Start 05/27/16 at 02:11; Stop 05/27/16 at 04:31; Status DC Insulin Human Regular 1 1 Q4HR SQ ; Start 05/27/16 at 12:00; Stop 05/28/16 at 01 :44; Status DC Sodium Chloride (NS 1000 ml Inj) 1,000 ml @ 100 mls/hr Q10H IV Last administered on 05/27/16 19:00; Start 05/27/16 at 09:00; Stop 05/28/16 at 04:59 ; Status DC Albuterol/ Ipratropium (Duoneb Neb) 1 ampule Q6HR NEB NEB Last administered on 3/30/17at 07:29; Start 05/27/16 at 10:00; Stop 05/31/16 at 10:00; Status DC Insulin Human Regular (NovoLIN R SUPPLEMENTAL SCALE) 1 BID@07,15 SQ Last administered on 05/28/16 14:34; Start 05/28/16 at 07:00; Stop 05/31/16 at 21:53 ; Status DC Adenosine (Adenocard Inj) 6 mg STK-MED ONCE IV PUSH ; Start 05/27/16 at 05:00; Stop 05/28/16 at 12:54; Status DC Dextrose (D50w (Vial) Inj) 25 ml UNSCH PRN IV PUSH HYPOGLYCEMIA-SEE COMMENTS; Start 05/31/16 at 22:00 Glucagon (Glucagon Inj) 1 mg UNSCH PRN OTHER HYPOGLYCEMIA-SEE COMMENTS; Start 05/31/16 at 22:00; Stop 06/19/16 at 08:05; Status DC Insulin Aspart (NovoLOG SUPPLEMENTAL SCALE) 1 ACHS SLIDING SCALE SQ Last administered on 06/12/16 18:00; Start 06/01/16 at 07:00; Stop 06/22/16 at 16:52 ; Status DC Albuterol/ Ipratropium (Duoneb Neb) 1 ampule Q6HR NEB NEB Last administered on 06/06/16 08:29; Start 06/02/16 at 16:00; Stop 06/06/16 at 10:56; Status DC Albuterol/ Ipratropium (Duoneb Neb) 1 ampule Q2HR NEB PRN NEB dyspnea Last administered on 06/21/16 20:16; Start 06/02/16 at 15:00 Insulin Detemir 5 units 5 units HS SQ Last administered on 07/05/16 20:41; Start 06/06/16 at 21:00 Propofol (Diprivan 1000 Mg/100ml Inj) 100 ml @ As Directed STK-MED ONCE .ROUTE ; Start 06/12/16 at 15:40; Stop 06/12/16 at 15:41; Status DC Midazolam HCl (Versed Inj) 5 mg STK-MED ONCE .ROUTE ; Start 06/12/16 at 15:41; Stop 06/12/16 at 15:42; Status DC Chlorhexidine Gluconate 15 ml 15 ml BID@08,20 MT ; Start 06/12/16 at 20:00; Stop 06/12/16 at 20:00; Status DC Propofol 100 ml @ 0 mls/hr TITRATE IV Last administered on 06/13/16 17:09; Start 06/12/16 at 17:45; Stop 06/19/16 at 08:05; Status DC Fentanyl Citrate 250 ml @ 0 mls/hr TITRATE IV Last administered on 06/12/16 20 :08; Start 06/12/16 at 17:45; Stop 06/19/16 at 08:06; Status DC Levofloxacin/ Dextrose 150 ml @ 100 mls/hr Q24H IV Last administered on 13:05; Start 06/13/16 at 14:00; Stop 06/19/16 at 10:06; Status DC Sodium Chloride 1,000 ml @ 999 mls/hr BOLUS ONCE IV Last administered on 06/13 14:43; Start 06/13/16 at 13:30; Stop 06/13/16 at 14:30; Status DC Sodium Chloride 1,000 ml @ 999 mls/hr BOLUS ONCE IV Last administered on 06/13 14:43; Start 06/13/16 at 13:30; Stop 06/13/16 at 14:30; Status DC Potassium Chloride 10 meq/ Sodium Chloride 1,005 ml @ 75 mls/hr [id number] IV Last administered on 06/22/16 00:24; Start 06/13/16 at 15:00; Stop 06/22/16 at 18:02; Status DC Sodium Chloride 1,000 ml @ 0 mls/hr ONCE ONCE IV Last administered on 08:48; Start 06/15/16 at 07:30; Stop 06/15/16 at 07:31; Status DC Cefazolin Sodium/ Dextrose 50 ml @ 100 mls/hr Q8H IV Last administered on 06/15 12:48; Start 06/15/16 at 12:00; Stop 06/15/16 at 13:13; Status DC Vancomycin HCl 1500 mg/Sodium Chloride 515 ml @ 257.5 mls/ hr ONCE ONCE IV Last administered on 06/15/16 15:12; Start 06/15/16 at 14:00; Stop 06/15/16 at 15:59; Status DC Pharmacy Profile Note 0 ml @ 0 mls/hr UNSCH OTHER ; Start 06/15/16 at 13:00; Stop 06/19/16 at 10:06; Status DC Aztreonam 1000 mg/ Sodium Chloride 100 ml @ 200 mls/hr Q8H IV Last administered on 06/19/16 05:21; Start 06/15/16 at 13:00; Stop 06/19/16 at 10:06 ; Status DC Vancomycin HCl/ Sodium Chloride (Vancomycin Inj/ NS 500 ml Inj) 515 ml @ 257.5 mls/ hr Q12H IV Last administered on 06/17/16 02:49; Start 06/16/16 at 02:00; Stop 06/17/16 at 08:43; Status DC Miscellaneous Information SPECIFIC LAB TO BE DRAWN:VANCO TROUGH DATE TO BE DR... ONCE ONCE .XX Last administered on 06/17/16 01:45; Start 06/17/16 at 01 :45; Stop 06/17/16 at 01:46; Status DC Vancomycin HCl/ Sodium Chloride (Vancomycin Inj/ NS 500 ml Inj) 517.5 ml @ 257.5 mls/ hr Q12H IV Last administered on 06/19/16 03:33; Start 06/17/16 at 14:00; Stop 06/19/16 at 08:51; Status DC Miscellaneous Information SPECIFIC LAB TO BE DRAWN:VANCOMY... ONCE ONCE .XX Last administered on 06/19/16 02:04; Start 06/19/16 at 01:45; Stop 06/19/16 at 01:46; Status DC Miscellaneous Information D/C ICU ELECTROLYTE ORDERS... UNSCH PRN .XX SEE DOSE INSTRUCTIONS; Start 06/17/16 at 10:30; Status Cancel Miscellaneous Information ICU - CALL ORDERING PHYSIC... UNSCH PRN .XX SEE DOSE INSTRUCTIONS; Start 06/17/16 at 10:30; Status Cancel Potassium Chloride (KCl 40 Meq Premix Inj) 100 ml @ 25 mls/hr UNSCH PRN IV ELECTROLYTE REPLACEMENT Last administered on 06/17/16 17:40; Start 06/17/16 at 10:30 Potassium Bicarb/ Potassium Chloride 50 meq 50 meq UNSCH PRN PO ELECTROLYTE REPLACEMENT; Start 06/17/16 at 10:30; Status Cancel Potassium Chloride 100 ml @ 50 mls/hr UNSCH PRN IV ELECTROLYTE REPLACEMENT; Start 06/17/16 at 10:30; Status Cancel Magnesium Sulfate 4 gm/Sodium Chloride 108 ml @ 54 mls/hr UNSCH PRN IV ELECTROLYTE REPLACEMENT; Start 06/17/16 at 10:30; Status Cancel Magnesium Sulfate/ Sodium Chloride (Magnesium Sulfate Inj/NS Inj) 104 ml @ 52 mls/hr UNSCH PRN IV ELECTROLYTE REPLACEMENT; Start 06/17/16 at 10:30; Status Cancel Magnesium Oxide 800 mg 800 mg UNSCH PRN PO ELECTROLYTE REPLACEMENT; Start 06/17 at 10:30; Status Cancel Sodium Phosphate/ Sodium Chloride (Sodium Phosphate Inj/NS 250 ml Inj) 260 ml @ 43.333 mls/ hr UNSCH PRN IV ELECTROLYTE REPLACEMENT; Start 06/17/16 at 10:30 ; Status Cancel Potassium Phosphate 2000 mg 2,000 mg UNSCH PRN PO ELECTROLYTE REPLACEMENT; Start 06/17/16 at 10:30; Status Cancel Potassium Phosphate/Sodium Chloride (Potassium Phosphate Inj/NS 250 ml Inj) 260 ml @ 43.333 mls/ hr UNSCH PRN IV ELECTROLYTE REPLACEMENT; Start 06/17/16 at 10 :30; Status Cancel Baclofen (Lioresal) 5 mg Q12HR PO Last administered on 06/21/16 10:58; Start 06/19/16 at 09:00; Stop 06/21/16 at 13:25; Status DC Pregabalin (Lyrica) 150 mg DAILY PO Last administered on 06/21/16 10:58; Start 06/19/16 at 09:00; Stop 06/21/16 at 13:25; Status DC Tizanidine HCl (Zanaflex) 2 mg Q12HR PO Last administered on 06/21/16 10:58; Start 06/19/16 at 09:00; Stop 06/21/16 at 13:25; Status DC Oxycodone HCl 2.5 mg 2.5 mg Q6H PRN PO pain 1-7 Last administered on 06/24/16 13:00; Start 06/19/16 at 08:15; Stop 06/24/16 at 16:18; Status DC Vancomycin HCl/ Sodium Chloride (Vancomycin Inj/ NS 500 ml Inj) 520 ml @ 257.5 mls/ hr Q12H IV ; Start 06/19/16 at 14:00; Stop 06/19/16 at 14:00; Status DC Miscellaneous Information SPECIFIC LAB TO BE DRAWN:VANCOMYCIN TROUGH DATE TO... ONCE ONCE .XX ; Start 06/21/16 at 01:45; Stop 06/21/16 at 01:45; Status DC Cefepime HCl 2000 mg/Sodium Chloride 100 ml @ 200 mls/hr Q12H IV Last administered on 06/26/16 00:00; Start 06/19/16 at 12:00; Stop 06/26/16 at 10:31 ; Status DC Norepinephrine Bitartrate 250 ml @ As Directed STK-MED ONCE IV Last administered on 06/19/16 16:09; Start 06/19/16 at 13:51; Stop 06/19/16 at 13:52 ; Status DC Sodium Chloride 1,000 ml @ 0 mls/hr BOLUS STAT IV ; Start 06/19/16 at 17:58; Stop 06/19/16 at 17:59; Status DC Fluconazole/ Sodium Chloride 200 ml @ 100 mls/hr Q24H IV Last administered on 06/22/16 09:12; Start 06/20/16 at 11:00; Stop 06/22/16 at 14:07; Status DC Vancomycin HCl 1500 mg/Sodium Chloride 515 ml @ 257.5 mls/ hr ONCE ONCE IV ; Start 06/20/16 at 11:00; Stop 06/20/16 at 11:26; Status DC Pharmacy Profile Note 0 ml @ 0 mls/hr UNSCH OTHER ; Start 06/20/16 at 11:00; Stop 06/22/16 at 14:07; Status DC Vancomycin HCl/ Sodium Chloride (Vancomycin Inj/ NS 500 ml Inj) 520 ml @ 250 mls/hr Q12H IV Last administered on 06/22/16 11:46; Start 06/20/16 at 13:00; Stop 06/22/16 at 14:07; Status DC Miscellaneous Information SPECIFIC LAB TO BE DRAWN:VANCO TROUGH DATE TO... ONCE ONCE .XX Last administered on 06/22/16 00:45; Start 06/22/16 at 00:45; Stop 06/22/16 at 00:46; Status DC Baclofen (Lioresal) 5 mg DAILY PO Last administered on 07/05/16 10:14; Start at 09:00 Pregabalin (Lyrica) 75 mg Q12HR PO Last administered on 07/05/16 20:41; Start 06/22/16 at 09:00 Miscellaneous Information SPECIFIC LAB TO BE ... ONCE ONCE .XX ; Start 06/23 at 12:45; Stop 06/23/16 at 12:45; Status DC Oxycodone HCl (Roxicodone) 2.5 mg Q4H PRN PO pain 1-6 Last administered on 05:54; Start 06/24/16 at 17:00 Date of Removal: Jun 29, 2016 A/P Assessment and Plan A/P Transaminitis. LFT improved. Abd pain, resolved Follow trend of LFT. Liver US shows fatty liver. Small stones or tumefactive sludge adherent to one of the gallbladder arcos. 3. Splenomegaly. Avoid liver toxicity drugs. Hep panel negative Diabetes mellitus Currently on levemir 5 units HS. accu-check twice daily. Diabetic Neuropathy: patient c/o left leg tingling/pins and needle on the left leg and seem. On lyrica to 50 mg po daily, improving. - No complains on Baclofen- improved PT ff Acute hypoxemic respiratory failure on T piece tolerates well [facility] History of staph aureus pneumonia/HCAP ARDS Currently on T-Piece, and tolerating well Pulm following, appreciate rec's. Trach collar with oxygen support to keep sat >92%. 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 Optifoam in place. Apply bacitracin. Wound cultures with normal sherine. Consult wound care, discussed with Nica from wound care, appreciate recommendations. Cleanse wound with NS and apply nonadhesive foam ag dressing over wound and change every other day and PRN for saturation or dislodgement. on silvadene cream daily Mild MR/TR. Monitor HR and BP keep MAP>65mmHg 2-D echo 03/26 EF 60%. No regional wall motion abnormality. Mild MR/TR. Hypokalemia-resolved Hypernatremia-resolved Hypophosphatemia-resolved Monitor renal function, and electrolytes periodically. Constipation-resolved Moderate protein calorie malnutrition Nausea and vomiting- resolved On tube feeding. Protonix 40mg daily On Reglan 10mg Q8, Senna and Colace twice a day.Discontinue MiraLAX twice a day and lactulose 4 times a day. PEG tube placement- 05/03- tolerating TF Zofran 4 mg every 6 hours when necessary Likely SERENITY Toxic metabolic encephalopathy-resolved Continue with pain control. Seroquel 25mg BID initiated 05/04 Acetaminophen for fever Staph aureus pneumonia- PSAE,MSSA Possible staph bacteremia Pertinent culture 04/27 - pansensitive staph aureus 04/27 blood cultures 2 negative 04/25 - urine -no growth 04/19 - blood cultures 2 out of 4 - staph aureus 04/19 - sputum - staph aureus 04/08 - sputum - staph aureus 04/03 - sputum - staph aureus 03/30 - sputum- -staph aureus 03/27 - sputum - staph aureus 03/26 - blood - staph hominis S/P On vancomycin 2 g IV every 12 are since 04/19 - 04/29 Azactam 04/27 through Finished clindamycin ID consulted . Finished course of abx- with Cefepime 06/25 ID specialist signed off. Leukocytosis Monitor CBC/coags periodically. Morbid obesity BMI of 51.8 Weight loss encouraged. DVT, GI prophylaxis -Bilateral lower extremity SCDs. PEG Protonix 40 mg daily. REglan 10 mg /PEG q 8 Lovenox 40 mg sq BID Left shoulder pain- - limited range of motion- Xrays negative for dislocation. PT consulted. Discharge Planning needs SNF placement. dc planning in progress. Mg Stearns MD July 06, 2016 08:07
--- NOTE | 2016-07-06 08:35 | HHI.PR ---
Subjective Remarks respiratory failure DOING WELL , NOW ON T TUBE Objective Vital Signs Date Time Temp Pulse Resp B/P Pulse Ox O2 Delivery O2 Flow Rate FiO2 07/06/16 04:15 98.6 85 18 111/58 93 07/05/16 23:25 98.7 90 18 110/65 94 07/05/16 20:35 98.7 125 18 110/53 94 07/05/16 20:00 97 T-Piece 5.00 Humidified 07/05/16 20:00 97 07/05/16 18:00 18 07/05/16 17:58 T-piece 6.00 40 07/05/16 16:00 98.5 89 18 98/55 96 07/05/16 14:27 94 T-piece 40 07/05/16 12:00 98.4 93 20 103/59 94 07/05/16 11:30 20 07/05/16 10:41 92 T-Piece 6.00 35 I/O 07/05/16 07/05/16 07/05/16 07/06/16 07/06/16 07/06/16 07:00 15:00 23:00 07:00 15:00 23:00 Intake Total 0 ml 720 ml 240 ml 0 ml Output Total 300 ml 450 ml 475 ml 200 ml Balance -300 ml 270 ml -235 ml -200 ml Intake Oral 0 ml 720 ml 240 ml 0 ml IV Total 0 ml Output Urine Total 300 ml 450 ml 475 ml 200 ml # Bowel Movements 0 0 1 0 Objective Remarks GENERAL: SKIN: Warm and dry.on vent support HEAD: Atraumatic. Normocephalic. EYES: Pupils equal and round. No scleral icterus. No injection or drainage. ENT: No nasal bleeding or discharge. Mucous membranes pink and moist. NECK: Trachea midline. No JVD. CARDIOVASCULAR: Regular rate and rhythm. RESPIRATORY: No accessory muscle use. Clear to auscultation. Breath sounds equal bilaterally. GASTROINTESTINAL: Abdomen soft, non-tender, nondistended. Hepatic and splenic margins not palpable. MUSCULOSKELETAL: Extremities without clubbing, cyanosis, or edema. No obvious deformities. NEUROLOGICAL: Awake and alert. No obvious cranial nerve deficits.right hemiplegia Assessment and Plan Assessment and Plan respiratory failure morbid obesity plan O2 NEEDED pulm toilet prognosis guarded Discharge Planning GENERAL: SKIN: Warm and dry. HEAD: Atraumatic. Normocephalic. EYES: Pupils equal and round. No scleral icterus. No injection or drainage. ENT: No nasal bleeding or discharge. Mucous membranes pink and moist. NECK: Trachea midline. No JVD. CARDIOVASCULAR: Regular rate and rhythm. RESPIRATORY: No accessory muscle use. Clear to auscultation. Breath sounds equal bilaterally. GASTROINTESTINAL: Abdomen soft, non-tender, nondistended. Hepatic and splenic margins not palpable. MUSCULOSKELETAL: Extremities without clubbing, cyanosis, or edema. No obvious deformities. NEUROLOGICAL: Awake and alert. No obvious cranial nerve deficits. Motor grossly within normal limits. Five out of 5 muscle strength in the arms and legs. Normal speech. PSYCHIATRIC: Appropriate mood and affect; insight and judgment normal. Orlando Perry MD July 06, 2016 08:35
[2016-07-06] MEDS: DOCUSATE SODIUM 100 MG/10 ML UDC PO SCH ×2 (08:48→20:48)
[2016-07-06] MEDS: BENEPROTEIN POWDER 1 PACK G-TUBE SCH ×3 (08:48→17:30)
[2016-07-06] MEDS: POTASSIUM CHLORIDE 10 MEQ CONTROLLED RELEASE TAB PO SCH (08:48)
[2016-07-06] MEDS: SODIUM CHLORIDE 0.9% FLUSH 5 ML FLUSH IVF SCH (08:48)
[2016-07-06] MEDS: BACLOFEN 10 MG TAB PO SCH (08:49)
[2016-07-06] MEDS: PREGABALIN 75 MG CAP PO SCH ×2 (08:49→20:47)
[2016-07-06] MEDS: POLYETHYLENE GLYCOL 17 GM PKG PO SCH ×2 (08:49→20:48)
[2016-07-06] MEDS: PANTOPRAZOLE SOD 40 MG DELAYED RELEASE TAB PO SCH (08:49)
[2016-07-06] MEDS: LACTOBACILLUS ACIDOPHILUS TAB PO SCH ×3 (08:49→17:29)
[2016-07-06] MEDS: BETAMETHASONE/CLOTRIMAZOLE CREAM 15 GM TOPICAL SCH ×2 (08:50→20:53)
[2016-07-06] MEDS: SENNOSIDES SYRUP 8.8 MG/5 ML CUP PO/TUBE SCH ×2 (08:50→20:48)
[2016-07-06] MEDS: NYSTATIN 100,000 U/GM PWD 15 GM BTL TOPICAL SCH ×2 (08:50→20:53)
[2016-07-06] MEDS: SILVER SULFADIAZINE 1% CR 400 GM JAR TOPICAL SCH (08:50)
--- NOTE | 2016-07-06 13:52 | HHI.HCPN ---
Doing better. Tolerating t-tube. Though there is a high likelihood of future setback including need for mechanical ventilation, goals remain aggressive. Disposition and post-acute care placement remain challenging. Jose Holguin MD July 06, 2016 13:52
[2016-07-06] MEDS: INSULIN DETEMIR 100 UNITS/ML VIAL SQ SCH (20:48)
[2016-07-07] VITALS (10 sets, daily range): BP systolic 105–116; BP diastolic 56–68; PULSE 79–98; RESP 18–20; TEMP 97.8–98.5; O2SAT 92–98
[2016-07-07] MEDS: ARTIFICIAL TEARS OPTH SOLN 15 ML BTL EACH EYE SCH ×6 (01:29→21:07)
[2016-07-07] MEDS: ENOXAPARIN SODIUM 40 MG/0.4 ML SYRINGE SQ SCH ×2 (04:17→17:06)
[2016-07-07] MEDS: CHLORHEXIDINE 0.12% (ORAL KIT) 15 ML CUP MT SCH (08:00)
[2016-07-07] MEDS: POLYETHYLENE GLYCOL 17 GM PKG PO SCH (08:21)
[2016-07-07] MEDS: SENNOSIDES SYRUP 8.8 MG/5 ML CUP PO/TUBE SCH (08:21)
[2016-07-07] MEDS: DOCUSATE SODIUM 100 MG/10 ML UDC PO SCH ×2 (08:21→21:00)
[2016-07-07] MEDS: PREGABALIN 75 MG CAP PO SCH ×2 (08:22→21:07)
[2016-07-07] MEDS: LACTOBACILLUS ACIDOPHILUS TAB PO SCH ×2 (08:22→12:40)
[2016-07-07] MEDS: BENEPROTEIN POWDER 1 PACK G-TUBE SCH ×3 (08:22→17:06)
[2016-07-07] MEDS: PANTOPRAZOLE SOD 40 MG DELAYED RELEASE TAB PO SCH (08:22)
[2016-07-07] MEDS: POTASSIUM CHLORIDE 10 MEQ CONTROLLED RELEASE TAB PO SCH (08:22)
[2016-07-07] MEDS: BACLOFEN 10 MG TAB PO SCH (08:23)
[2016-07-07] MEDS: BETAMETHASONE/CLOTRIMAZOLE CREAM 15 GM TOPICAL SCH ×2 (08:25→21:06)
[2016-07-07] MEDS: NYSTATIN 100,000 U/GM PWD 15 GM BTL TOPICAL SCH ×2 (08:25→21:06)
[2016-07-07] MEDS: SILVER SULFADIAZINE 1% CR 400 GM JAR TOPICAL SCH (08:26)
[2016-07-07] MEDS: SODIUM CHLORIDE 0.9% FLUSH 5 ML FLUSH IVF SCH (08:26)
--- NOTE | 2016-07-07 10:34 | HHI.PR ---
Subjective Remarks Discussed with RN, no acute issues. The patient has no acute complaints today. The patient has a chronic cough from tracheostomy. He denies any shortness of breath. He reports he's been eating well and having normal bowel movements. He is able to get to the chair with PT. Objective Vitals Vital Signs Date Time Temp Pulse Resp B/P Pulse Ox O2 Delivery O2 Flow Rate FiO2 07/07/16 08:20 T-Piece 6.00 40 07/07/16 08:07 97.8 90 20 108/61 94 07/07/16 08:00 79 07/07/16 05:30 20 07/07/16 04:39 95 07/07/16 04:00 98.0 86 20 110/58 95 07/07/16 00:00 97.9 98 18 116/68 96 07/06/16 22:13 20 07/06/16 21:24 98 T-piece 6.00 28 07/06/16 20:50 T-Piece 6.00 35 07/06/16 20:00 98.6 99 19 120/68 97 07/06/16 16:00 99.1 95 18 116/58 97 07/06/16 15:03 98 T-piece 6.00 40 07/06/16 12:00 98.4 100 20 106/63 96 07/06/16 11:42 80 07/06/16 11:31 92 T-Piece 6.00 35 I/O 07/06/16 07/06/16 07/06/16 07/07/16 07/07/16 07/07/16 07:00 15:00 23:00 07:00 15:00 23:00 Intake Total 0 ml 840 ml 320 ml 775 ml Output Total 200 ml 300 ml 725 ml Balance -200 ml 540 ml -405 ml 775 ml Intake Oral 0 ml 840 ml 320 ml 775 ml IV Total 0 ml Output Urine Total 200 ml 300 ml 725 ml # Bowel Movements 0 0 0 Imaging Last Impressions Chest X-Ray 06/30/16 0600 Signed Impressions: Service Date/Time: Thursday, June 30, 2016 06:07 - CONCLUSION: No significant change. Mild bilateral perihilar and basilar consolidation again noted. Ubaldo Ortiz MD Shoulder X-Ray 06/28/16 0000 Signed Impressions: Service Date/Time: June 15:12 - CONCLUSION: 1. Limited but negative examination of the shoulder. Kywa Rojo MD Abdomen X-Ray 06/19/16 0000 Signed Impressions: Service Date/Time: Sunday, June 19, 2016 10:43 - CONCLUSION: Gastric tube tip does not cross the diaphragm and the side port is approximately 8 cm above the diaphragm. Chano Goodwin MD Lower Extremity Ultrasound 06/04/16 0000 Signed Impressions: Service Date/Time: Saturday, June 04, 2016 14:54 - CONCLUSION: 1. No DVT identified. Dc Barton MD Liver Ultrasound 05/09/16 0000 Signed Impressions: Service Date/Time: Monday, May 09, 2016 22:28 - CONCLUSION: 1. Enlarged, fatty liver. 2. Small stones or tumefactive sludge adherent to one of the gallbladder arcos. 3. Splenomegaly. 4. Pancreas is obscured by overlying bowel gas and patient's body habitus. Arthur Kennedy MD Chest CT 03/28/16 0836 Signed Impressions: Service Date/Time: Monday, March 28, 2016 09:57 - CONCLUSION: Development areas of air bronchograms and consolidation more prominent in the right and left posterior basilar segments of the lower lobes. ET tube above the chanelle. Bernard Hartman MD CT Angiography 03/24/16 1121 Signed Impressions: Service Date/Time: Thursday, March 24, 2016 12:47 - CONCLUSION: 1. There is respiratory motion artifact but no PE is identified through most of the segmental level pulmonary arteries. 2. Mildly enlarged main pulmonary artery may indicate pulmonary arterial hypertension. 3. 11 mm left lower lobe noncalcified pulmonary nodule. Suggest correlation with any prior imaging studies that could confirm longer-term stability. If none are available consider short-term followup noncontrast chest CT in approximately 3 months. Ubaldo Rodas MD Objective Remarks GENERAL: Well-developed well-nourished. Morbidly obese. In no acute distress. SKIN: Warm and dry. No lesions noted. HEENT: Normocephalic. Pupils equal and round. Mucous membranes pink and moist. T piece in place. CARDIOVASCULAR: Regular rate and rhythm. No murmur appreciated. RESPIRATORY: No accessory muscle use. Clear to auscultation. Coarse breath sounds. GASTROINTESTINAL: Abdomen soft, non-tender, nondistended. Bowel sounds x4. MUSCULOSKELETAL: No obvious deformities. No clubbing or cyanosis. No edema. NEUROLOGICAL: Awake and alert. Moves upper and lower extremities spontaneously. Difficulty with speech due to tracheostomy. Procedures 04/30/16 - tracheostomy by Dr. Reyes 05/03/16 - EGD with PEG placement by Dr. Faith 06/09/16 - PEG removal 06/21/16- repeat tracheostomy by Dr. Cuellar Date of Removal: Jun 29, 2016 A/P Problem List: (1) Acute hypercapnic respiratory failure ICD Code: J96.02 Status: Acute (2) Staphylococcus aureus pneumonia ICD Code: J15.211 Status: Acute (3) Encephalopathy ICD Code: G93.40 Status: Acute (4) JACOB (obstructive sleep apnea) ICD Code: G47.33 Status: Acute (5) Diabetes mellitus type 2 in obese ICD Code: E11.9 Status: Acute (6) Morbid obesity with BMI of 50.0-59.9, adult ICD Code: E66.01 Status: Acute (7) Obesity hypoventilation syndrome ICD Code: E66.2 Status: Acute Assessment and Plan Acute hypoxemic respiratory failure, now chronic on T piece JACOB [facility] History of staph aureus pneumonia/HCAP ARDS Pulm following, appreciate rec's. Trach collar with oxygen support to keep sat >92%. Bronchodilators as needed Continue on T-Piece, tolerating well Diabetes mellitus Currently on levemir 5 units HS. accu-check twice daily. Diabetic Neuropathy: Continue on Lyrica and baclofen daily. 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 Optifoam in place. Apply bacitracin. Wound cultures with normal sherine. Consulted wound care, cleanse wound with NS and apply nonadhesive foam ag dressing over wound and change every other day and PRN for saturation or dislodgement. On Silvadene cream daily Staph aureus pneumonia- PSAE,MSSA Possible staph bacteremia Pertinent culture: 04/27 - pansensitive staph aureus 04/27 blood cultures 2 negative 04/25 - urine -no growth 04/19 - blood cultures 2 out of 4 - staph aureus 04/19 - sputum - staph aureus 04/08 - sputum - staph aureus 04/03 - sputum - staph aureus 03/30 - sputum- -staph aureus 03/27 - sputum - staph aureus 03/26 - blood - staph hominis S/P On vancomycin 2 g IV every 12 are since 04/19 - 04/29 Azactam 04/27 through Finished clindamycin ID consulted . Finished course of abx- with Cefepime 06/25 ID specialist signed off. Leukocytosis, persistent Monitor CBC/coags periodically. Morbid obesity BMI of 51.8 Counseling on weight reduction. Left shoulder pain- - limited range of motion- Xray 06/28 negative exam. PT consulted. Oxycodone as needed DVT, GI prophylaxis PEG Protonix 40 mg daily. Lovenox 40 mg sq BID Discharge Planning needs SNF placement. dc planning in progress. Attending Statement patient was seen and examined today. no new complaints and clinically no change. continue with current care. rest of assessment and plan as noted above. Roman Garay July 07, 2016 10:34 Mg Stearns MD July 07, 2016 12:05
[2016-07-07] MEDS ORDERED: POLYETHYLENE GLYCOL 17 GM PKG PO PRN (11:00)
[2016-07-07] MEDS: INSULIN DETEMIR 100 UNITS/ML VIAL SQ SCH (21:08)
[2016-07-08] VITALS (9 sets, daily range): BP systolic 100–121; BP diastolic 56–68; PULSE 84–97; RESP 16–20; TEMP 98–99.8; O2SAT 93–97
[2016-07-08] MEDS: ARTIFICIAL TEARS OPTH SOLN 15 ML BTL EACH EYE SCH ×6 (02:00→21:26)
[2016-07-08] MEDS: ENOXAPARIN SODIUM 40 MG/0.4 ML SYRINGE SQ SCH ×2 (05:06→17:39)
[2016-07-08] MEDS: DOCUSATE SODIUM 100 MG/10 ML UDC PO SCH ×2 (08:16→21:00)
[2016-07-08] MEDS: SILVER SULFADIAZINE 1% CR 400 GM JAR TOPICAL SCH (08:16)
[2016-07-08] MEDS: PREGABALIN 75 MG CAP PO SCH ×2 (08:23→21:08)
[2016-07-08] MEDS: BACLOFEN 10 MG TAB PO SCH (08:23)
[2016-07-08] MEDS: PANTOPRAZOLE SOD 40 MG DELAYED RELEASE TAB PO SCH (08:23)
[2016-07-08] MEDS: BENEPROTEIN POWDER 1 PACK G-TUBE SCH ×3 (08:26→17:40)
[2016-07-08] MEDS: NYSTATIN 100,000 U/GM PWD 15 GM BTL TOPICAL SCH ×2 (08:27→21:00)
[2016-07-08] MEDS: BETAMETHASONE/CLOTRIMAZOLE CREAM 15 GM TOPICAL SCH ×2 (08:27→21:00)
[2016-07-08] MEDS: POTASSIUM CHLORIDE 10 MEQ CONTROLLED RELEASE TAB PO SCH (08:27)
[2016-07-08] MEDS: SODIUM CHLORIDE 0.9% FLUSH 5 ML FLUSH IVF SCH (08:27)
--- NOTE | 2016-07-08 09:32 | HHI.PR ---
Subjective Remarks resting comfortably with no distress. clinically no change. Objective Vitals Vital Signs Date Time Temp Pulse Resp B/P Pulse Ox O2 Delivery O2 Flow Rate FiO2 07/08/16 08:15 T-Piece 6.00 35 07/08/16 08:00 98.7 93 16 121/67 94 07/08/16 04:00 T-Piece 6.00 35 07/08/16 04:00 98.2 85 20 100/57 97 07/08/16 00:00 T-Piece 6.00 35 07/08/16 00:00 98.0 88 20 106/60 96 07/07/16 21:49 92 T-piece 6.00 40 07/07/16 21:07 T-Piece 6.00 35 07/07/16 20:11 87 07/07/16 20:00 98.0 89 20 109/56 98 07/07/16 16:05 98.4 84 20 107/60 95 07/07/16 12:07 98.5 82 20 105/58 95 I/O 07/07/16 07/07/16 07/07/16 07/08/16 07/08/16 07/08/16 07:00 15:00 23:00 07:00 15:00 23:00 Intake Total 775 ml 482 ml 360 ml 240 ml Output Total 800 ml 725 ml 500 ml Balance 775 ml -318 ml -365 ml -260 ml Intake Oral 775 ml 480 ml 360 ml 240 ml IV Total 2 ml Output Urine Total 800 ml 725 ml 500 ml # Bowel Movements 0 0 0 Imaging Last Impressions Chest X-Ray 06/30/16 0600 Signed Impressions: Service Date/Time: Thursday, June 30, 2016 06:07 - CONCLUSION: No significant change. Mild bilateral perihilar and basilar consolidation again noted. Ubaldo Ortiz MD Shoulder X-Ray 06/28/16 0000 Signed Impressions: Service Date/Time: June 15:12 - CONCLUSION: 1. Limited but negative examination of the shoulder. Kyaw Rojo MD Abdomen X-Ray 06/19/16 0000 Signed Impressions: Service Date/Time: Sunday, June 19, 2016 10:43 - CONCLUSION: Gastric tube tip does not cross the diaphragm and the side port is approximately 8 cm above the diaphragm. Chano Goodwin MD Lower Extremity Ultrasound 06/04/16 0000 Signed Impressions: Service Date/Time: Saturday, June 04, 2016 14:54 - CONCLUSION: 1. No DVT identified. Dc Barton MD Liver Ultrasound 05/09/16 0000 Signed Impressions: Service Date/Time: Monday, May 09, 2016 22:28 - CONCLUSION: 1. Enlarged, fatty liver. 2. Small stones or tumefactive sludge adherent to one of the gallbladder arcos. 3. Splenomegaly. 4. Pancreas is obscured by overlying bowel gas and patient's body habitus. Arthur Kennedy MD Chest CT 03/28/16 0836 Signed Impressions: Service Date/Time: Monday, March 28, 2016 09:57 - CONCLUSION: Development areas of air bronchograms and consolidation more prominent in the right and left posterior basilar segments of the lower lobes. ET tube above the chanelle. Bernard Hartman MD CT Angiography 03/24/16 1121 Signed Impressions: Service Date/Time: Thursday, March 24, 2016 12:47 - CONCLUSION: 1. There is respiratory motion artifact but no PE is identified through most of the segmental level pulmonary arteries. 2. Mildly enlarged main pulmonary artery may indicate pulmonary arterial hypertension. 3. 11 mm left lower lobe noncalcified pulmonary nodule. Suggest correlation with any prior imaging studies that could confirm longer-term stability. If none are available consider short-term followup noncontrast chest CT in approximately 3 months. Ubaldo Rodas MD Objective Remarks GENERAL: in no apparent distress. Neck; trach in place CARDIOVASCULAR: Regular rate and regular rhythm without murmurs, gallops, or rubs. RESPIRATORY: Clear to auscultation. Breath sounds equal bilaterally. No wheezes , rales, or rhonchi. GASTROINTESTINAL: Abdomen soft, non-tender, nondistended. Normal, active bowel sounds MUSCULOSKELETAL: Extremities without clubbing, cyanosis, or edema. NEURO: Alert & Oriented x4 to person, place, time, situation. Moves all ext x4 Procedures 04/30/16 - tracheostomy by Dr. Reyes 05/03/16 - EGD with PEG placement by Dr. Faith 06/09/16 - PEG removal 06/21/16- repeat tracheostomy by Dr. Cuellar Medications and IVs Current Medications IV Flush (NS Flush) 2 ml UNSCH PRN IVF FLUSH AFTER USING IV ACCESS Last administered on 05/23/16 05:55; Start 03/24/16 at 11:30 Iohexol (Omnipaque 350 Inj) 89 ml STK-MED ONCE IV Last administered on 13:08; Start 03/24/16 at 13:08; Stop 03/24/16 at 13:09; Status DC Albuterol/ Ipratropium (Duoneb Neb) 1 ampule Q6HR NEB NEB Last administered on 04/04/16 07:42; Start 03/24/16 at 17:00; Stop 04/04/16 at 07:43; Status DC Dextrose (D50w (Vial) Inj) 25 ml UNSCH PRN IV PUSH HYPOGLYCEMIA-SEE COMMENTS; Start 03/24/16 at 16:30; Stop 03/31/16 at 11:22; Status DC Glucagon (Glucagon Inj) 1 mg UNSCH PRN OTHER HYPOGLYCEMIA-SEE COMMENTS; Start 03/24/16 at 16:30; Stop 03/31/16 at 11:22; Status DC Insulin Human Regular (NovoLIN R SUPPLEMENTAL SCALE) 1 ACHS SLIDING SCALE SQ Last administered on 03/31/16 06:09; Start 03/24/16 at 21:00; Stop 03/31/16 at 11:16; Status DC Albuterol/ Ipratropium (Duoneb Neb) 1 ampule Q2HR NEB PRN NEB WHEEZING AND SOB Last administered on 04/20/16 08:10; Start 03/24/16 at 16:45; Stop 04/23/16 at 13:22; Status DC Enoxaparin Sodium (Lovenox Inj) 40 mg Q24H SQ Last administered on 03/25/16 17 :00; Start 03/24/16 at 17:00; Stop 03/26/16 at 16:40; Status DC Pantoprazole Sodium (Protonix) 40 mg DAILY PO Last administered on 03/26/16 08 :35; Start 03/25/16 at 09:00; Stop 03/26/16 at 16:40; Status DC Influenza Virus Vaccine (Flu (Quadrivalent) Vaccine Inj) 0.5 ml ONCE ONCE IM Last administered on 03/25/16 08:57; Start 03/25/16 at 10:00; Stop 03/25/16 at 10:01; Status DC Chlorhexidine Gluconate (Chlorhexidine 2% Cloth) 3 pack DAILY@04 TOP Last administered on 03/29/16 03:42; Start 03/25/16 at 04:00; Stop 03/29/16 at 04:01 ; Status DC Chlorhexidine Gluconate (Chlorhexidine 2% Cloth) 3 pack UNSCH PRN TOP HYGIENIC CARE; Start 03/24/16 at 19:15; Stop 03/29/16 at 19:07; Status DC Tiotropium Fajardo (Spiriva Inh) 18 mcg DAILY INH Last administered on 08:36; Start 03/25/16 at 13:45; Stop 05/05/16 at 13:25; Status DC Metformin HCl (Glucophage) 500 mg BIDPC PO Last administered on 03/28/16 08:18 ; Start 03/26/16 at 09:00; Stop 04/07/16 at 10:16; Status DC Betamethasone/ Clotrimazole (Lotrisone Cream) 1 applic Q12HR TOPICAL Last administered on 07/08/16 08:27; Start 03/26/16 at 09:00 Methylprednisolone Sodium Succinate 60 mg 60 mg Q12HR IV PUSH Last administered on 03/28/16 08:17; Start 03/26/16 at 13:30; Stop 03/28/16 at 10:25 ; Status DC Propofol (Diprivan 1000 Mg/100ml Inj) 100 ml @ As Directed STK-MED ONCE .ROUTE ; Start 03/26/16 at 13:16; Stop 03/26/16 at 13:17; Status DC Etomidate 40 mg 40 mg STK-MED ONCE .ROUTE ; Start 03/26/16 at 13:20; Stop at 13:21; Status DC Propofol 100 ml @ 0 mls/hr TITRATE IV Last administered on 04/15/16 06:35; Start 03/26/16 at 14:30; Stop 05/02/16 at 08:34; Status DC Fentanyl Citrate (fentaNYL DRIP) 250 ml @ 0 mls/hr TITRATE IV Last administered on 05/02/16 15:59; Start 03/26/16 at 14:30; Stop 05/02/16 at 19:46; Status DC Rocuronium Fajardo (Zemuron Inj) 50 mg STK-MED ONCE .ROUTE ; Start 03/26/16 at 15:38; Stop 03/26/16 at 15:39; Status DC Rocuronium Fajardo (Zemuron Inj) 50 mg STK-MED ONCE .ROUTE ; Start 03/26/16 at 15:40; Stop 03/26/16 at 15:41; Status DC Furosemide (Lasix Inj) 40 mg ONCE ONCE IV PUSH Last administered on 03/26/16 18:00; Start 03/26/16 at 16:45; Stop 03/26/16 at 17:08; Status DC Furosemide (Lasix Inj) 20 mg BID@09,18 IV PUSH Last administered on 03/29/16 08:06; Start 03/26/16 at 18:00; Stop 03/29/16 at 08:43; Status DC Pantoprazole Sodium (Protonix Inj) 40 mg Q24H IV PUSH Last administered on 05/24 18:00; Start 03/26/16 at 18:00; Stop 05/25/16 at 12:09; Status DC Enoxaparin Sodium 40 mg 40 mg Q12H SQ Last administered on 07/08/16 05:06; Start 03/26/16 at 18:00 Aztreonam 2000 mg/ Sodium Chloride 100 ml @ 200 mls/hr Q8H IV Last administered on 03/31/16 10:23; Start 03/26/16 at 18:00; Stop 03/31/16 at 13:55 ; Status DC Potassium Chloride 100 ml @ 50 mls/hr Q2H PRN IV For Potassium 2.8 - 3.2 mEq/ L Last administered on 05/03/16 23:31; Start 03/26/16 at 16:45; Stop 05/17/16 at 17:12; Status DC Potassium Chloride (KCl 20 Meq Premix Inj) 100 ml @ 50 mls/hr Q2H PRN IV For Potassium 2.8 - 3.2 mEq/L Last administered on 05/07/16 23:26; Start 03/26/16 at 16:45; Stop 05/17/16 at 17:12; Status DC Potassium Chloride 40 meq 40 meq UNSCH PRN PO/TUBE For Potassium 3.3 - 3.5 mEq/ L Last administered on 05/17/16 09:28; Start 03/26/16 at 16:45; Stop 05/17/16 at 17:12; Status DC Potassium Chloride 100 ml @ 25 mls/hr UNSCH PRN IV For Potassium 3.3 - 3.5 mEq /L Last administered on 04/20/16 09:17; Start 03/26/16 at 16:45; Stop 05/17/16 at 17:12; Status DC Potassium Chloride 100 ml @ 50 mls/hr Q2H PRN IV For Potassium 3.3 - 3.5 mEq/ L Last administered on 05/08/16 11:22; Start 03/26/16 at 16:45; Stop 05/17/16 at 17:12; Status DC Magnesium Sulfate/ Sodium Chloride (Magnesium Sulfate Inj/NS Inj) 100 ml @ 50 mls/hr UNSCH PRN IV For Magnesium 0.9 - 1.1 mg/dL; Start 03/26/16 at 16:45; Stop 05/17/16 at 17:12; Status DC Magnesium Oxide 800 mg 800 mg UNSCH PRN PO For Magnesium 1.2 - 1.6 mg/dL; Start 03/26/16 at 16:45; Stop 05/17/16 at 17:12; Status DC Magnesium Sulfate/ Sodium Chloride (Magnesium Sulfate Inj/NS Inj) 100 ml @ 50 mls/hr UNSCH PRN IV For Magnesium 1.2 - 1.6 mg/dL; Start 03/26/16 at 16:45; Stop 05/17/16 at 17:12; Status DC Potassium Phosphate 2000 mg 2,000 mg Q4H PRN PO For Phosphorus < 2.5 mg/dL Last administered on 04/01/16 05:08; Start 03/26/16 at 16:45; Stop 05/17/16 at 17:12; Status DC Sodium Phosphate/ Sodium Chloride (Sodium Phosphate Inj/NS 250 ml Inj) 250 ml @ 42 mls/hr UNSCH PRN IV For Phosphorus < 2.5 mg/dL Last administered on 14:19; Start 03/26/16 at 16:45; Stop 05/17/16 at 17:12; Status DC Potassium Chloride (KCl 40 Meq/30 ml Liq) 40 meq UNSCH PRN PO/TUBE SEE LABEL COMMENTS; Start 03/26/16 at 16:45; Stop 05/17/16 at 17:12; Status DC Potassium Phosphate 2000 mg 2,000 mg UNSCH PRN PO/TUBE SEE LABEL COMMENTS; Start 03/26/16 at 16:45; Stop 05/17/16 at 17:12; Status DC Potassium Phosphate/Sodium Chloride (Potassium Phosphate Inj/NS 250 ml Inj) 260 ml @ 42 mls/hr UNSCH PRN IV SEE LABEL COMMENTS Last administered on 05/03/16 08:23; Start 03/26/16 at 16:45; Stop 05/17/16 at 17:12; Status DC Potassium Chloride 40 meq 40 meq DAILY PO Last administered on 04/01/16 09:18 ; Start 03/26/16 at 18:00; Stop 04/02/16 at 07:20; Status DC Metronidazole (Flagyl 500 Mg Inj) 100 ml @ 100 mls/hr Q8H IV Last administered on 04/10/16 07:44; Start 03/27/16 at 08:00; Stop 04/10/16 at 13:30; Status DC Protein 1 pack 1 pack TID G-TUBE Last administered on 07/08/16 08:26; Start at 09:00 Vancomycin HCl 1500 mg/Sodium Chloride 515 ml @ 257.5 mls/ hr ONCE ONCE IV Last administered on 03/27/16 10:21; Start 03/27/16 at 09:00; Stop 03/27/16 at 10:59; Status DC Pharmacy Profile Note 0 ml @ 0 mls/hr UNSCH OTHER ; Start 03/27/16 at 08:00; Stop 03/31/16 at 13:55; Status DC Vancomycin HCl/ Sodium Chloride (Vancomycin Inj/ NS 500 ml Inj) 520 ml @ 260 mls/hr Q24H IV Last administered on 03/30/16 04:04; Start 03/28/16 at 04:00; Stop 03/30/16 at 11:11; Status DC Miscellaneous Information SPECIFIC LAB TO BE ISHAAN... ONCE ONCE XX Last administered on 03/30/16 03:45; Start 03/30/16 at 03:45; Stop 03/30/16 at 03:46 ; Status DC Insulin Detemir 5 units 5 units Q12HR SQ Last administered on 03/31/16 21:17; Start 03/28/16 at 11:00; Stop 04/01/16 at 08:57; Status DC Pharmacy Profile Note (Vancomycin Consult Pharmacy) 0 ml @ 0 mls/hr UNSCH OTHER ; Start 03/28/16 at 10:15; Status UNV Methylprednisolone Sodium Succinate (SoluMEDROL INJ) 40 mg Q12HR IV PUSH Last administered on 04/17/16 07:26; Start 03/28/16 at 21:00; Stop 04/17/16 at 09:03 ; Status DC Docusate Sodium (Colace Liq) 100 mg Q12HR PO Last administered on 06/29/16 08: 14; Start 03/29/16 at 09:00 Sennosides (Senna Liq) 8.8 mg DAILY PO Last administered on 03/31/16 08:40; Start 03/29/16 at 09:00; Stop 04/01/16 at 08:57; Status DC Furosemide (Lasix Inj) 40 mg BID@09,18 IV PUSH ; Start 03/29/16 at 18:00; Stop 03/29/16 at 18:00; Status DC Furosemide 40 mg 40 mg BID@09,18 IV PUSH Last administered on 04/01/16 17:37; Start 03/29/16 at 09:00; Stop 04/02/16 at 07:14; Status DC Vancomycin HCl/ Sodium Chloride (Vancomycin Inj/ NS 500 ml Inj) 517.5 ml @ 250 mls/hr Q12H IV Last administered on 03/31/16 03:19; Start 03/30/16 at 16:00; Stop 03/31/16 at 13:55; Status DC Miscellaneous Information SPECIFIC LAB TO BE ISHAAN... ONCE ONCE XX Last administered on 03/31/16 15:41; Start 03/31/16 at 15:45; Stop 03/31/16 at 15:46 ; Status DC Acetaminophen (Tylenol 650 Mg/ 20 ml Liq) 650 mg Q6H PRN PO fever or pain 1-5 Last administered on 06/23/16 21:37; Start 03/30/16 at 15:45 Bumetanide (Bumex Inj) 1 mg ONCE ONCE IV PUSH ; Start 03/31/16 at 09:30; Stop 03/31/16 at 10:40; Status DC Dextrose (D50w (Vial) Inj) 25 ml UNSCH PRN IV PUSH HYPOGLYCEMIA-SEE COMMENTS; Start 03/31/16 at 11:15; Stop 04/03/16 at 17:53; Status DC Glucagon (Glucagon Inj) 1 mg UNSCH PRN OTHER HYPOGLYCEMIA-SEE COMMENTS; Start 03/31/16 at 11:15; Stop 04/07/16 at 10:46; Status DC Insulin Human Regular 1 1 Q6H SQ Last administered on 04/03/16 17:48; Start at 12:00; Stop 04/03/16 at 17:54; Status DC Levofloxacin/ Dextrose 150 ml @ 100 mls/hr Q24H IV Last administered on 14:07; Start 03/31/16 at 14:00; Stop 04/16/16 at 09:51; Status DC Fluconazole/ Sodium Chloride 200 ml @ 100 mls/hr Q24H IV Last administered on 04/09/16 15:48; Start 03/31/16 at 16:00; Stop 04/10/16 at 13:31; Status DC Linezolid 300 ml @ 300 mls/hr Q12H IV Last administered on 04/04/16 02:45; Start 03/31/16 at 15:00; Stop 04/04/16 at 09:59; Status DC Cisatracurium Besylate 100 mg/ Sodium Chloride 250 ml @ 0 mls/hr TITRATE IV Last administered on 04/14/16 11:39; Start 04/01/16 at 09:00; Stop 04/15/16 at 09:02; Status DC Epoprostenol Sodium/Sodium Chloride (Flolan (30,000 Ng/ml) Neb/NS Inj) 100 ml @ 8 mls/hr Q8H NEB Last administered on 04/15/16 02:32; Start 04/01/16 at 10:00 ; Stop 04/15/16 at 09:02; Status DC Insulin Detemir (Levemir Inj) 15 units Q12HR SQ Last administered on 04/01/16 20:13; Start 04/01/16 at 09:00; Stop 04/02/16 at 07:14; Status DC Sennosides (Senna Liq) 8.8 mg BID PO/TUBE Last administered on 06/26/16 09:07 ; Start 04/01/16 at 09:00; Stop 07/07/16 at 10:55; Status DC Polyethylene Glycol (Miralax) 17 gm BID PO Last administered on 04/03/16 21:14 ; Start 04/01/16 at 09:00; Stop 04/23/16 at 13:31; Status DC Lactulose (Lactulose Liq) 30 ml QID PO Last administered on 04/01/16 20:13; Start 04/01/16 at 09:00; Stop 04/02/16 at 07:14; Status DC Methylnaltrexone Fajardo (Relistor Inj) 12 mg ONCE ONCE SQ Last administered on 04/01/16 11:44; Start 04/01/16 at 10:30; Stop 04/01/16 at 10:31; Status DC Metoclopramide HCl (Reglan Inj) 5 mg Q8HR IV PUSH Last administered on 05:42; Start 04/01/16 at 14:00; Stop 04/11/16 at 09:15; Status DC Glycerin (Glycerin Adult Supp) 2 gm BID PRN RECTAL CONSTIPATION Last administered on 04/25/16 10:22; Start 04/01/16 at 09:00 Glycerin (Glycerin Adult Supp) 2 gm ONCE ONCE RECTAL Last administered on 04/01 10:52; Start 04/01/16 at 09:30; Stop 04/01/16 at 09:31; Status DC Mineral Oil (Mineral Oil Liq) 15 ml ONCE ONCE PO Last administered on 10:00; Start 04/01/16 at 10:00; Stop 04/01/16 at 10:01; Status DC Chlorhexidine Gluconate 15 ml 15 ml BID@08,20 MT Last administered on 07/02/16 20:00; Start 04/01/16 at 20:00; Stop 07/07/16 at 10:56; Status DC Midazolam HCl 100 ml @ 0 mls/hr TITRATE IV Last administered on 05/01/16 14:25 ; Start 04/01/16 at 11:45; Stop 05/02/16 at 08:35; Status DC Norepinephrine Bitartrate (Levophed-Dextrose Drip) 250 ml @ 0 mls/hr TITRATE IV Last administered on 04/01/16 21:15; Start 04/01/16 at 20:30; Stop 04/07/16 at 10:10; Status DC Furosemide (Lasix Inj) 20 mg BID@09,18 IV PUSH Last administered on 04/03/16 08:17; Start 04/02/16 at 09:00; Stop 04/03/16 at 12:58; Status DC Insulin Detemir (Levemir Inj) 25 units Q12HR SQ Last administered on 04/03/16 08:17; Start 04/02/16 at 09:00; Stop 04/03/16 at 12:48; Status DC IV Flush (NS Flush) DAILY IVF Last administered on 07/08/16 08:27; Start 04/03 at 09:00 IV Flush (NS Flush) UNSCH PRN IVF SEE PROTOCOL Last administered on 04/22/16 07:42; Start 04/02/16 at 09:30 Artificial Tears (Lacrilube Opht Oint) 1 applic Q12HR EACH EYE Last administered on 06/02/16 08:46; Start 04/02/16 at 12:00; Stop 06/02/16 at 14:00; Status DC Lactobacillus Acidophilus (Lactinex) 1 tab TID PO Last administered on 12:40; Start 04/03/16 at 13:00; Stop 07/07/16 at 13:12; Status DC Insulin Detemir (Levemir Inj) 40 units Q12HR SQ ; Start 04/03/16 at 21:00; Stop 04/03/16 at 21:00; Status DC Insulin Human NPH 15 units 15 units ONCE ONCE SQ Last administered on 13:08; Start 04/03/16 at 13:00; Stop 04/03/16 at 13:01; Status DC Sodium Chloride (NS 1000 ml Inj) 1,000 ml @ 999 mls/hr BOLUS ONCE IV Last administered on 04/03/16 13:10; Start 04/03/16 at 13:00; Stop 04/03/16 at 14:00 ; Status DC Sodium Polystyrene Sulfonate 15 gm 15 gm ONCE ONCE PO Last administered on 13:22; Start 04/03/16 at 13:00; Stop 04/03/16 at 13:08; Status DC Insulin Human Regular/Sodium Chloride (NovoLIN R (IV INFUSION)/NS Inj) 100 ml @ 0 mls/hr TITRATE IV Last administered on 04/03/16 22:44; Start 04/03/16 at 18: 00; Stop 04/04/16 at 09:12; Status DC Dextrose (D50w (Vial) Inj) 25 ml UNSCH PRN IV PUSH SEE LABEL COMMENTS; Start at 17:45; Stop 04/04/16 at 09:14; Status DC Miscellaneous Information 1 ONCE ONCE XX Last administered on 04/03/16 20:27 ; Start 04/03/16 at 17:45; Stop 04/03/16 at 17:52; Status DC Albuterol/ Ipratropium (Duoneb Neb) 1 ampule Q4HR NEB NEB Last administered on 04/08/16 03:48; Start 04/04/16 at 08:00; Stop 04/08/16 at 08:00; Status DC Furosemide 20 mg 20 mg BID@09,18 IV PUSH Last administered on 04/15/16 08:12; Start 04/04/16 at 09:00; Stop 04/15/16 at 09:53; Status DC Insulin Human Regular/Sodium Chloride (NovoLIN R (IV INFUSION)/NS Inj) 100 ml @ 0 mls/hr TITRATE IV Last administered on 04/07/16 04:33; Start 04/04/16 at 09:00 ; Stop 04/07/16 at 10:11; Status DC Dextrose (D50w (Vial) Inj) 25 ml UNSCH PRN IV PUSH SEE LABEL COMMENTS; Start at 09:00; Stop 04/07/16 at 10:46; Status DC Miscellaneous Information 1 ONCE ONCE XX Last administered on 04/04/16 10:00; Start 04/04/16 at 10:00; Stop 04/04/16 at 10:01; Status DC Insulin Detemir (Levemir Inj) 60 units Q12HR SQ Last administered on 04/07/16 07:41; Start 04/05/16 at 11:00; Stop 04/08/16 at 08:14; Status DC Dextrose (D50w (Vial) Inj) 25 ml UNSCH PRN IV PUSH HYPOGLYCEMIA-SEE COMMENTS; Start 04/07/16 at 10:15; Stop 04/07/16 at 17:03; Status DC Glucagon (Glucagon Inj) 1 mg UNSCH PRN OTHER HYPOGLYCEMIA-SEE COMMENTS; Start 04/07/16 at 10:15; Stop 04/07/16 at 17:03; Status DC Insulin Human Regular (NovoLIN R SUPPLEMENTAL SCALE) 1 Q6H SQ Last administered on 04/07/16 10:56; Start 04/07/16 at 11:00; Stop 04/07/16 at 17:01; Status DC Insulin Detemir (Levemir Inj) 20 units Q12HR SQ Last administered on 04/08/16 07:26; Start 04/07/16 at 21:00; Stop 04/08/16 at 08:14; Status DC Dextrose (D50w (Vial) Inj) 25 ml UNSCH PRN IV PUSH HYPOGLYCEMIA-SEE COMMENTS; Start 04/07/16 at 17:00; Stop 05/13/16 at 13:50; Status DC Glucagon (Glucagon Inj) 1 mg UNSCH PRN OTHER HYPOGLYCEMIA-SEE COMMENTS; Start 04/07/16 at 17:00; Stop 05/13/16 at 13:50; Status DC Insulin Human Regular (NovoLIN R SUPPLEMENTAL SCALE) 1 Q6H SQ Last administered on 05/11/16 17:08; Start 04/07/16 at 18:00; Stop 05/13/16 at 13:50 ; Status DC Insulin Detemir 24 units 24 units Q12HR SQ Last administered on 04/09/16 07:37 ; Start 04/08/16 at 21:00; Stop 04/09/16 at 10:01; Status DC Vancomycin HCl 1750 mg/Sodium Chloride 517.5 ml @ 258.75 mls/ hr ONCE ONCE IV Last administered on 04/08/16 14:42; Start 04/08/16 at 13:00; Stop 04/08/16 at 14:59; Status DC Sodium Chloride (NS 500 ml Inj) 500 ml @ 500 mls/hr BOLUS ONCE IV Last administered on 04/08/16 17:20; Start 04/08/16 at 17:15; Stop 04/08/16 at 18:14; Status DC Insulin Detemir 30 units 30 units Q12HR SQ Last administered on 04/10/16 08:29 ; Start 04/09/16 at 21:00; Stop 04/10/16 at 10:25; Status DC Pharmacy Profile Note 0 ml @ 0 mls/hr UNSCH OTHER ; Start 04/09/16 at 10:30; Stop 04/12/16 at 13:55; Status DC Vancomycin HCl/ Sodium Chloride (Vancomycin Inj/ NS 500 ml Inj) 515 ml @ 257.5 mls/ hr Q12H IV Last administered on 04/10/16 11:16; Start 04/09/16 at 12:00; Stop 04/10/16 at 13:51; Status DC Miscellaneous Information SPECIFIC LAB TO BE DRAWN:[facility]... ONCE ONCE XX ; Start 04/10/16 at 11:45; Stop 04/10/16 at 11:46; Status DC Insulin Detemir 35 units 35 units Q12HR SQ Last administered on 04/11/16 08:07 ; Start 04/10/16 at 21:00; Stop 04/11/16 at 09:15; Status DC Vancomycin HCl/ Sodium Chloride (Vancomycin Inj/ NS 500 ml Inj) 520 ml @ 260 mls/hr Q12H IV Last administered on 04/12/16 08:14; Start 04/10/16 at 20:00; Stop 04/12/16 at 13:55; Status DC Miscellaneous Information SPECIFIC LAB TO BE ISHAAN... ONCE ONCE XX Last administered on 04/12/16 07:45; Start 04/12/16 at 07:45; Stop 04/12/16 at 07:46; Status DC Insulin Detemir (Levemir Inj) 45 units Q12HR SQ Last administered on 04/23/16 08:29; Start 04/11/16 at 21:00; Stop 04/23/16 at 13:24; Status DC Metoclopramide HCl 10 mg 10 mg Q8HR IV PUSH Last administered on 05/25/16 06: 05; Start 04/11/16 at 14:00; Stop 05/25/16 at 12:09; Status DC Sodium Chloride (NS 1000 ml Inj) 2,000 ml @ 0 mls/hr NOW ONCE IV Last administered on 04/11/16 21:01; Start 04/11/16 at 21:00; Stop 04/11/16 at 21:01; Status DC Miscellaneous Information SPECIFIC LAB TO BE DRAWN:VANCOMYCIN TROUGH DATE TO... ONCE ONCE XX ; Start 04/13/16 at 19:45; Stop 04/13/16 at 19:46; Status Cancel Furosemide 20 mg 20 mg Q6H IV PUSH Last administered on 04/16/16 08:40; Start 04/12/16 at 15:00; Stop 04/16/16 at 09:25; Status DC Epoprostenol Sodium 30 ml/ Sodium Chloride 67.5 ml @ 8 mls/hr Q8H NEB ; Start 04/15/16 at 10:00; Stop 04/15/16 at 10:00; Status DC Epoprostenol Sodium/Sodium Chloride (Flolan (30,000 Ng/ml) Neb/NS Inj) 100 ml @ 8 mls/hr Q8H NEB Last administered on 04/18/16 02:09; Start 04/15/16 at 10:00 ; Stop 04/18/16 at 10:15; Status DC Furosemide (Lasix Inj) 20 mg Q8H IV PUSH Last administered on 04/23/16 08:31; Start 04/16/16 at 17:00; Stop 04/23/16 at 13:44; Status DC Methylprednisolone Sodium Succinate 40 mg 40 mg DAILY IV PUSH Last administered on 05/02/16 08:11; Start 04/18/16 at 09:00; Stop 05/02/16 at 08:39; Status DC Epoprostenol Sodium 25 ml/ Sodium Chloride 100 ml @ 8 mls/hr Q8H NEB Last administered on 04/19/16 13:12; Start 04/18/16 at 15:00; Stop 04/19/16 at 15:59 ; Status DC Vancomycin HCl 1500 mg/Sodium Chloride 515 ml @ 257.5 mls/ hr ONCE ONCE IV Last administered on 04/19/16 13:45; Start 04/19/16 at 13:00; Stop 04/19/16 at 14:59; Status DC Epoprostenol Sodium 12.5 ml/ Sodium Chloride 100 ml @ 8 mls/hr Q8H NEB Last administered on 04/20/16 00:29; Start 04/19/16 at 16:00; Stop 04/20/16 at 15:11 ; Status DC Pharmacy Profile Note 0 ml @ 0 mls/hr UNSCH OTHER ; Start 04/20/16 at 14:15; Stop 04/29/16 at 10:33; Status DC Vancomycin HCl/ Sodium Chloride (Vancomycin Inj/ NS 500 ml Inj) 520 ml @ 250 mls/hr Q12H IV Last administered on 04/24/16 05:53; Start 04/20/16 at 18:00; Stop 04/24/16 at 09:15; Status DC Miscellaneous Information SPECIFIC LAB TO BE DRAWN:VANCO TROUGH DATE TO... ONCE ONCE XX Last administered on 04/22/16 05:45; Start 04/22/16 at 05:45; Stop 04/22/16 at 05:46; Status DC Potassium Bicarb/ Potassium Chloride (K-Lyte Cl Eff) 25 meq Q12HR PO Last administered on 04/28/16 07:49; Start 04/21/16 at 21:00; Stop 05/27/16 at 08:44 ; Status DC Artificial Tears (Tears Naturale Opth Soln) 1 drop Q4H EACH EYE Last administered on 07/07/16 08:26; Start 04/21/16 at 18:00 Water (Free Water) 200 ml Q6HR G-TUBE Last administered on 04/30/16 12:00; Start 04/22/16 at 18:00; Stop 05/01/16 at 17:19; Status DC Albuterol/ Ipratropium (Duoneb Neb) 1 ampule Q6HR NEB NEB Last administered on 04/27/16 08:03; Start 04/23/16 at 16:00; Stop 04/27/16 at 16:00; Status DC Albuterol/ Ipratropium (Duoneb Neb) 1 ampule Q2HR NEB PRN NEB [id number] Last administered on 05/11/16 15:54; Start 04/23/16 at 13:15; Stop 05/17/16 at 20:14 ; Status DC Insulin Detemir (Levemir Inj) 55 units Q12HR SQ Last administered on 04/24/16 08:34; Start 04/23/16 at 21:00; Stop 04/24/16 at 12:17; Status DC Polyethylene Glycol (Miralax) 17 gm BID PO Last administered on 07/01/16 20:31 ; Start 04/24/16 at 09:00; Stop 07/07/16 at 10:55; Status DC Furosemide 20 mg 20 mg BID IV PUSH Last administered on 04/28/16 07:50; Start 04/23/16 at 21:00; Stop 04/28/16 at 11:08; Status DC Vancomycin HCl/ Sodium Chloride (Vancomycin Inj/ NS 500 ml Inj) 515 ml @ 257.5 mls/ hr Q12H IV Last administered on 04/28/16 11:59; Start 04/24/16 at 23:00; Stop 04/28/16 at 14:04; Status DC Miscellaneous Information SPECIFIC LAB TO BE ... ONCE ONCE XX Last administered on 04/25/16 22:45; Start 04/25/16 at 22:45; Stop 04/25/16 at 22:46 ; Status DC Insulin Detemir (Levemir Inj) 65 units Q12HR SQ Last administered on 04/25/16 09:00; Start 04/24/16 at 21:00; Stop 04/25/16 at 15:10; Status DC Polyethylene Glycol (Miralax) 17 gm ONCE ONCE PO Last administered on 16:21; Start 04/25/16 at 15:15; Stop 04/25/16 at 15:16; Status DC Polyethylene Glycol (Miralax) 17 gm DAILY PO ; Start 04/26/16 at 09:00; Stop at 11:33; Status DC Mineral Oil (Mineral Oil Liq) 15 ml ONCE ONCE PO Last administered on 16:21; Start 04/25/16 at 16:00; Stop 04/25/16 at 16:01; Status DC Potassium Chloride (KCl 40 Meq/30 ml Liq) 40 meq ONCE ONCE PO Last administered on 04/25/16 16:21; Start 04/25/16 at 15:15; Stop 04/25/16 at 15:16 ; Status DC Insulin Detemir (Levemir Inj) 75 units Q12HR SQ Last administered on 04/26/16 09:13; Start 04/25/16 at 21:00; Stop 04/26/16 at 14:43; Status DC Methylnaltrexone Fajardo (Relistor Inj) 12 mg ONCE ONCE SQ Last administered on 04/25/16 16:22; Start 04/25/16 at 16:00; Stop 04/25/16 at 16:01; Status DC Miscellaneous Information SPECIFIC LAB TO BE DRAWN:VANCO TROUGH DATE TO BE DR... ONCE ONCE XX Last administered on 04/28/16 10:45; Start 04/28/16 at 10: 45; Stop 04/28/16 at 10:46; Status DC Methylnaltrexone Fajardo (Relistor Inj) 12 mg ONCE ONCE SQ Last administered on 04/26/16 15:18; Start 04/26/16 at 14:30; Stop 04/26/16 at 14:56; Status DC Lactulose (Lactulose Liq) 30 ml QID PO Last administered on 04/28/16 07:47; Start 04/26/16 at 18:00; Stop 05/27/16 at 08:44; Status DC Mineral Oil (Mineral Oil Liq) 15 ml ONCE ONCE PO Last administered on 15:19; Start 04/26/16 at 14:30; Stop 04/26/16 at 14:56; Status DC Sennosides (Senna Liq) 8.8 mg ONCE ONCE PO Last administered on 04/26/16 15: 25; Start 04/26/16 at 14:30; Stop 04/26/16 at 14:56; Status DC Magnesium Citrate (Citroma Liq) 300 ml ONCE ONCE PO Last administered on 15:25; Start 04/26/16 at 14:45; Stop 04/26/16 at 14:56; Status DC Potassium Chloride (KCl 40 Meq/30 ml Liq) 40 meq ONCE ONCE PO Last administered on 04/26/16 15:25; Start 04/26/16 at 14:45; Stop 04/26/16 at 14:56 ; Status DC Insulin Detemir (Levemir Inj) 80 units Q12HR SQ Last administered on 04/28/16 07:49; Start 04/26/16 at 21:00; Stop 04/28/16 at 11:19; Status DC Nystatin 1 applic 1 applic Q12HR TOPICAL Last administered on 07/08/16 08:27; Start 04/27/16 at 11:00 Aztreonam/Sodium Chloride (Azactam Inj/NS Inj) 100 ml @ 200 mls/hr Q8H IV Last administered on 04/29/16 02:39; Start 04/27/16 at 10:00; Stop 04/29/16 at 10:34; Status DC Potassium Chloride (KCl 40 Meq/30 ml Liq) 40 meq ONCE ONCE PO Last administered on 04/27/16 13:00; Start 04/27/16 at 13:00; Stop 04/27/16 at 13:02 ; Status DC Albuterol/ Ipratropium (Duoneb Neb) 1 ampule Q4HR NEB NEB Last administered on 05/02/16 07:53; Start 04/28/16 at 12:00; Stop 05/02/16 at 12:00; Status DC Sodium Chloride 2 ml 2 ml Q8HR NEB NEB Last administered on 05/01/16 07:21; Start 04/28/16 at 16:00; Stop 05/01/16 at 15:59; Status DC Sodium Chloride/ Sterile Water (Sodium Chloride 23.4% Inj/Sterile Water For Inj ) 1,009.625 ml @ 84 mls/hr Q12H2M IV Last administered on 04/28/16 13:23; Start 04/28/16 at 13:00; Stop 04/29/16 at 01:01; Status DC Insulin Detemir 70 units 70 units Q12HR SQ Last administered on 05/03/16 08:08 ; Start 04/28/16 at 21:00; Stop 05/05/16 at 17:18; Status DC Vancomycin HCl/ Sodium Chloride (Vancomycin Inj/ NS 250 ml Inj) 262.5 ml @ 250 mls/hr Q12H IV Last administered on 04/29/16 00:18; Start 04/28/16 at 23:00; Stop 04/29/16 at 10:34; Status DC Miscellaneous Information SPECIFIC LAB TO BE ISHAAN... ONCE ONCE XX ; Start at 10:45; Stop 04/30/16 at 10:45; Status DC Clindamycin Phosphate/Sodium Chloride (Cleocin Inj/NS Inj) 104 ml @ 208 mls/hr Q8H IV Last administered on 05/06/16 15:52; Start 04/29/16 at 12:00; Stop at 12:00; Status DC Lidocaine/ Epinephrine (Xylocaine-Epi 1%-1:100,000 Inj) 30 ml STK-MED ONCE .ROUTE ; Start 04/30/16 at 13:00; Stop 04/30/16 at 13:01; Status DC Fentanyl Citrate 250 mcg 250 mcg STK-MED ONCE .ROUTE ; Start 04/30/16 at 15:28; Stop 04/30/16 at 15:29; Status DC Dexmedetomidine HCl (Precedex Inj) 50 ml @ 0 mls/hr TITRATE IV Last administered on 05/02/16 18:32; Start 05/01/16 at 17:00; Stop 05/02/16 at 19:00; Status DC Water (Free Water) 100 ml Q6HR G-TUBE Last administered on 06/09/16 12:00; Start 05/01/16 at 18:00; Stop 06/10/16 at 15:51; Status DC Fentanyl (Duragesic 25 Mcg Patch.72 Hr) 1 patch Q3D TD Last administered on 09:05; Start 05/02/16 at 09:00; Stop 06/19/16 at 08:05; Status DC Miscellaneous Information 1 Q3D T-DERMAL Last administered on 06/13/16 08:23; Start 05/05/16 at 09:00; Stop 06/19/16 at 08:05; Status DC Oxycodone HCl (Roxicodone Intensol Liq) 5 mg Q6H PRN PO PAIN SCALE 7 TO 10 Last administered on 05/23/16 05:54; Start 05/02/16 at 08:45; Stop 06/05/16 at 22 :00; Status DC Acetaminophen/ Hydrocodone Bitart (Ainsworth 5-325 Mg) 1 tab Q6H PO Last administered on 05/06/16 15:52; Start 05/02/16 at 09:00; Stop 05/06/16 at 18:52; Status DC Methylprednisolone Sodium Succinate (SoluMEDROL INJ) 30 mg DAILY IV PUSH Last administered on 05/04/16 07:55; Start 05/03/16 at 09:00; Stop 05/04/16 at 10:09; Status DC Midazolam HCl (Versed Inj) 5 mg STK-MED ONCE .ROUTE Last administered on 16:18; Start 05/02/16 at 16:14; Stop 05/02/16 at 16:15; Status DC Lorazepam (Ativan Inj) 2 mg STK-MED ONCE .ROUTE Last administered on 05/02/16 16:19; Start 05/02/16 at 16:15; Stop 05/02/16 at 16:16; Status DC Midazolam HCl (Versed Inj) 5 mg NOW ONCE IV Last administered on 05/02/16 16: 30; Start 05/02/16 at 16:30; Stop 05/02/16 at 16:31; Status DC Lorazepam 2 mg 2 mg Q4H PRN IVP AGITATION Last administered on 06/13/16 21:22 ; Start 05/02/16 at 16:30; Stop 06/19/16 at 08:05; Status DC Dexmedetomidine HCl/Sodium Chloride (Precedex Inj/NS 250 ml Inj) 260 ml @ 0 mls/ hr TITRATE IV Last administered on 05/04/16 09:53; Start 05/02/16 at 19:01; Stop 05/04/16 at 16:31; Status DC Hydralazine HCl (Apresoline Inj) 10 mg Q4H PRN IV PUSH SBP >165 Last administered on 05/03/16 06:20; Start 05/02/16 at 22:00; Stop 06/05/16 at 20:34; Status DC Propofol (Diprivan 200 Mg/20 ml Inj) 170 mg STK-MED ONCE IV ; Start 05/03/16 at 15:06; Stop 05/03/16 at 15:07; Status DC Quetiapine Fumarate (SEROquel) 25 mg BID PO Last administered on 06/21/16 10: 58; Start 05/04/16 at 09:00; Stop 06/21/16 at 13:25; Status DC Methylprednisolone Sodium Succinate (SoluMEDROL INJ) 20 mg DAILY IV PUSH Last administered on 05/11/16 08:02; Start 05/05/16 at 09:00; Stop 05/12/16 at 09:13 ; Status DC Fentanyl Citrate (fentaNYL INJ) 50 mcg NOW ONCE IV Last administered on 01:03; Start 05/05/16 at 01:00; Stop 05/05/16 at 01:02; Status DC Metoprolol Tartrate (Lopressor Inj) 2.5 mg NOW ONCE IV PUSH Last administered on 05/05/16 04:17; Start 05/05/16 at 04:00; Stop 05/05/16 at 04:01; Status DC Ondansetron HCl (Zofran Inj) 4 mg Q6H PRN IV NAUSEA OR VOMITING; Start 05/05/16 at 06:45 Bumetanide (Bumex Inj) 0.5 mg DAILY IV PUSH Last administered on 05/24/16 09: 25; Start 05/05/16 at 09:00; Stop 05/24/16 at 10:39; Status DC Albuterol/ Ipratropium (Duoneb Neb) 1 ampule TID NEB INH Last administered on 05/09/16 13:05; Start 05/05/16 at 14:00; Stop 05/09/16 at 14:00; Status DC Insulin Detemir (Levemir Inj) 50 units Q12HR SQ Last administered on 05/11/16 20:54; Start 05/05/16 at 21:00; Stop 05/13/16 at 13:50; Status DC Acetaminophen/ Hydrocodone Bitart (Ainsworth 5-325 Mg) 1 tab Q12HR PO Last administered on 06/18/16 19:40; Start 05/06/16 at 21:00; Stop 06/19/16 at 08:05 ; Status DC Propofol 200 mg 200 mg STK-MED ONCE IV ; Start 04/30/16 at 15:12; Stop 05/07/16 at 15:12; Status DC Parenteral Electrolytes (Normosol R Inj) 2,000 ml @ As Directed STK-MED ONCE IV ; Start 04/30/16 at 15:12; Stop 05/07/16 at 15:12; Status DC Potassium Chloride (KCl) 10 meq DAILY PO Last administered on 07/06/16 08:48; Start 05/10/16 at 09:30 Simethicone (Phazyme Chew) 125 mg DAILY PRN PO gas Last administered on 15:00; Start 05/11/16 at 15:00 Insulin Detemir (Levemir Inj) 35 units Q12HR SQ Last administered on 05/30/16 20:26; Start 05/13/16 at 21:00; Stop 06/05/16 at 22:00; Status DC Dextrose (D50w (Vial) Inj) 25 ml UNSCH PRN IV PUSH HYPOGLYCEMIA-SEE COMMENTS; Start 05/13/16 at 14:00; Stop 05/31/16 at 21:54; Status DC Glucagon (Glucagon Inj) 1 mg UNSCH PRN OTHER HYPOGLYCEMIA-SEE COMMENTS; Start 05/13/16 at 14:00; Stop 05/31/16 at 21:54; Status DC Insulin Human Regular (NovoLIN R SUPPLEMENTAL SCALE) 1 ACHS SLIDING SCALE SQ Last administered on 05/25/16 06:19; Start 05/13/16 at 16:00; Stop 05/25/16 at 12:14; Status DC Silver Sulfadiazine (Silvadene 1% Cream (400 Gm)) 1 applic DAILY TOPICAL Last administered on 07/07/16 08:26; Start 05/16/16 at 11:00 Pregabalin (Lyrica) 25 mg DAILY PO Last administered on 05/19/16 08:22; Start 05/17/16 at 11:45; Stop 05/20/16 at 10:29; Status DC Ipratropium Fajardo (Atrovent Neb) 0.5 mg Q2HR NEB PRN NEB wheezing Last administered on 05/27/16 00:28; Start 05/17/16 at 21:00 Diltiazem HCl (Cardizem) 30 mg ONCE ONCE PO Last administered on 05/17/16 22: 44; Start 05/17/16 at 22:45; Stop 05/17/16 at 22:46; Status DC Potassium Chloride (KCl) 40 meq ONCE ONCE PO Last administered on 05/17/16 22 :44; Start 05/17/16 at 22:45; Stop 05/17/16 at 22:46; Status DC Pregabalin (Lyrica) 50 mg DAILY PO Last administered on 06/18/16 08:33; Start 05/21/16 at 09:00; Stop 06/19/16 at 08:05; Status DC Baclofen (Lioresal) 10 mg Q12HR PO Last administered on 06/18/16 19:39; Start 05/24/16 at 10:45; Stop 06/19/16 at 08:05; Status DC Bumetanide (Bumetanide) 0.5 mg ONCE ONCE PO Last administered on 05/25/16 09: 21; Start 05/25/16 at 09:00; Stop 05/25/16 at 09:01; Status DC Miscellaneous (Pill Splitter) 1 ea UNSCH PRN OTHER SEE LABEL COMMENTS; Start at 10:45 Pantoprazole Sodium (Protonix) 40 mg DAILY PO Last administered on 07/08/16 08: 23; Start 05/26/16 at 09:00 Insulin Human Regular (NovoLIN R SUPPLEMENTAL SCALE) 1 Q12HR SQ Last administered on 05/26/16 22:40; Start 05/25/16 at 19:00; Stop 05/27/16 at 08:44 ; Status DC Metoclopramide HCl (Reglan) 10 mg Q8HR G-TUBE Last administered on 06/02/16 14: 43; Start 05/25/16 at 14:00; Stop 06/02/16 at 14:49; Status DC Albuterol Sulfate 2.5 mg 2.5 mg ONCE ONCE NEB Last administered on 05/27/16 00:45; Start 05/27/16 at 00:45; Stop 05/27/16 at 00:46; Status DC Sodium Chloride (NS 1000 ml Inj) 999 ml @ 0 mls/hr BOLUS ONCE IV Last administered on 05/27/16 02:01; Start 05/27/16 at 02:00; Stop 05/27/16 at 04:31 ; Status DC Adenosine (Adenocard Inj) 6 mg NOW ONCE IV PUSH Last administered on 02:01; Start 05/27/16 at 02:01; Stop 05/27/16 at 04:31; Status DC Adenosine (Adenocard Inj) 12 mg NOW ONCE IV PUSH Last administered on 02:11; Start 05/27/16 at 02:11; Stop 05/27/16 at 04:31; Status DC Insulin Human Regular 1 1 Q4HR SQ ; Start 05/27/16 at 12:00; Stop 05/28/16 at 01 :44; Status DC Sodium Chloride (NS 1000 ml Inj) 1,000 ml @ 100 mls/hr Q10H IV Last administered on 05/27/16 19:00; Start 05/27/16 at 09:00; Stop 05/28/16 at 04:59 ; Status DC Albuterol/ Ipratropium (Duoneb Neb) 1 ampule Q6HR NEB NEB Last administered on 05/31/16 07:29; Start 05/27/16 at 10:00; Stop 05/31/16 at 10:00; Status DC Insulin Human Regular (NovoLIN R SUPPLEMENTAL SCALE) 1 BID@07,15 SQ Last administered on 05/28/16 14:34; Start 05/28/16 at 07:00; Stop 05/31/16 at 21:53 ; Status DC Adenosine (Adenocard Inj) 6 mg STK-MED ONCE IV PUSH ; Start 05/27/16 at 05:00; Stop 05/28/16 at 12:54; Status DC Dextrose (D50w (Vial) Inj) 25 ml UNSCH PRN IV PUSH HYPOGLYCEMIA-SEE COMMENTS; Start 05/31/16 at 22:00 Glucagon (Glucagon Inj) 1 mg UNSCH PRN OTHER HYPOGLYCEMIA-SEE COMMENTS; Start 05/31/16 at 22:00; Stop 06/19/16 at 08:05; Status DC Insulin Aspart (NovoLOG SUPPLEMENTAL SCALE) 1 ACHS SLIDING SCALE SQ Last administered on 06/12/16 18:00; Start 06/01/16 at 07:00; Stop 06/22/16 at 16:52 ; Status DC Albuterol/ Ipratropium (Duoneb Neb) 1 ampule Q6HR NEB NEB Last administered on 06/06/16 08:29; Start 06/02/16 at 16:00; Stop 06/06/16 at 10:56; Status DC Albuterol/ Ipratropium (Duoneb Neb) 1 ampule Q2HR NEB PRN NEB dyspnea Last administered on 06/21/16 20:16; Start 06/02/16 at 15:00 Insulin Detemir 5 units 5 units HS SQ Last administered on 07/07/16 21:08; Start 06/06/16 at 21:00 Propofol (Diprivan 1000 Mg/100ml Inj) 100 ml @ As Directed STK-MED ONCE .ROUTE ; Start 06/12/16 at 15:40; Stop 06/12/16 at 15:41; Status DC Midazolam HCl (Versed Inj) 5 mg STK-MED ONCE .ROUTE ; Start 06/12/16 at 15:41; Stop 06/12/16 at 15:42; Status DC Chlorhexidine Gluconate 15 ml 15 ml BID@08,20 MT ; Start 06/12/16 at 20:00; Stop 06/12/16 at 20:00; Status DC Propofol 100 ml @ 0 mls/hr TITRATE IV Last administered on 06/13/16 17:09; Start 06/12/16 at 17:45; Stop 06/19/16 at 08:05; Status DC Fentanyl Citrate 250 ml @ 0 mls/hr TITRATE IV Last administered on 06/12/16 20 :08; Start 06/12/16 at 17:45; Stop 06/19/16 at 08:06; Status DC Levofloxacin/ Dextrose 150 ml @ 100 mls/hr Q24H IV Last administered on 13:05; Start 06/13/16 at 14:00; Stop 06/19/16 at 10:06; Status DC Sodium Chloride 1,000 ml @ 999 mls/hr BOLUS ONCE IV Last administered on 06/13 14:43; Start 06/13/16 at 13:30; Stop 06/13/16 at 14:30; Status DC Sodium Chloride 1,000 ml @ 999 mls/hr BOLUS ONCE IV Last administered on 06/13 14:43; Start 06/13/16 at 13:30; Stop 06/13/16 at 14:30; Status DC Potassium Chloride 10 meq/ Sodium Chloride 1,005 ml @ 75 mls/hr [id number] IV Last administered on 06/22/16 00:24; Start 06/13/16 at 15:00; Stop 06/22/16 at 18:02; Status DC Sodium Chloride 1,000 ml @ 0 mls/hr ONCE ONCE IV Last administered on 08:48; Start 06/15/16 at 07:30; Stop 06/15/16 at 07:31; Status DC Cefazolin Sodium/ Dextrose 50 ml @ 100 mls/hr Q8H IV Last administered on 06/15 12:48; Start 06/15/16 at 12:00; Stop 06/15/16 at 13:13; Status DC Vancomycin HCl 1500 mg/Sodium Chloride 515 ml @ 257.5 mls/ hr ONCE ONCE IV Last administered on 06/15/16 15:12; Start 06/15/16 at 14:00; Stop 06/15/16 at 15:59; Status DC Pharmacy Profile Note 0 ml @ 0 mls/hr UNSCH OTHER ; Start 06/15/16 at 13:00; Stop 06/19/16 at 10:06; Status DC Aztreonam 1000 mg/ Sodium Chloride 100 ml @ 200 mls/hr Q8H IV Last administered on 06/19/16 05:21; Start 06/15/16 at 13:00; Stop 06/19/16 at 10:06 ; Status DC Vancomycin HCl/ Sodium Chloride (Vancomycin Inj/ NS 500 ml Inj) 515 ml @ 257.5 mls/ hr Q12H IV Last administered on 06/17/16 02:49; Start 06/16/16 at 02:00; Stop 06/17/16 at 08:43; Status DC Miscellaneous Information SPECIFIC LAB TO BE DRAWN:VANCO TROUGH DATE TO BE DR... ONCE ONCE .XX Last administered on 06/17/16 01:45; Start 06/17/16 at 01 :45; Stop 06/17/16 at 01:46; Status DC Vancomycin HCl/ Sodium Chloride (Vancomycin Inj/ NS 500 ml Inj) 517.5 ml @ 257.5 mls/ hr Q12H IV Last administered on 06/19/16 03:33; Start 06/17/16 at 14:00; Stop 06/19/16 at 08:51; Status DC Miscellaneous Information SPECIFIC LAB TO BE DRAWN:VANCOMY... ONCE ONCE .XX Last administered on 06/19/16 02:04; Start 06/19/16 at 01:45; Stop 06/19/16 at 01:46; Status DC Miscellaneous Information D/C ICU ELECTROLYTE ORDERS... UNSCH PRN .XX SEE DOSE INSTRUCTIONS; Start 06/17/16 at 10:30; Status Cancel Miscellaneous Information ICU - CALL ORDERING PHYSIC... UNSCH PRN .XX SEE DOSE INSTRUCTIONS; Start 06/17/16 at 10:30; Status Cancel Potassium Chloride (KCl 40 Meq Premix Inj) 100 ml @ 25 mls/hr UNSCH PRN IV ELECTROLYTE REPLACEMENT Last administered on 06/17/16 17:40; Start 06/17/16 at 10:30 Potassium Bicarb/ Potassium Chloride 50 meq 50 meq UNSCH PRN PO ELECTROLYTE REPLACEMENT; Start 06/17/16 at 10:30; Status Cancel Potassium Chloride 100 ml @ 50 mls/hr UNSCH PRN IV ELECTROLYTE REPLACEMENT; Start 06/17/16 at 10:30; Status Cancel Magnesium Sulfate 4 gm/Sodium Chloride 108 ml @ 54 mls/hr UNSCH PRN IV ELECTROLYTE REPLACEMENT; Start 06/17/16 at 10:30; Status Cancel Magnesium Sulfate/ Sodium Chloride (Magnesium Sulfate Inj/NS Inj) 104 ml @ 52 mls/hr UNSCH PRN IV ELECTROLYTE REPLACEMENT; Start 06/17/16 at 10:30; Status Cancel Magnesium Oxide 800 mg 800 mg UNSCH PRN PO ELECTROLYTE REPLACEMENT; Start 06/17 at 10:30; Status Cancel Sodium Phosphate/ Sodium Chloride (Sodium Phosphate Inj/NS 250 ml Inj) 260 ml @ 43.333 mls/ hr UNSCH PRN IV ELECTROLYTE REPLACEMENT; Start 06/17/16 at 10:30 ; Status Cancel Potassium Phosphate 2000 mg 2,000 mg UNSCH PRN PO ELECTROLYTE REPLACEMENT; Start 06/17/16 at 10:30; Status Cancel Potassium Phosphate/Sodium Chloride (Potassium Phosphate Inj/NS 250 ml Inj) 260 ml @ 43.333 mls/ hr UNSCH PRN IV ELECTROLYTE REPLACEMENT; Start 06/17/16 at 10 :30; Status Cancel Baclofen (Lioresal) 5 mg Q12HR PO Last administered on 06/21/16 10:58; Start 06/19/16 at 09:00; Stop 06/21/16 at 13:25; Status DC Pregabalin (Lyrica) 150 mg DAILY PO Last administered on 06/21/16 10:58; Start 06/19/16 at 09:00; Stop 06/21/16 at 13:25; Status DC Tizanidine HCl (Zanaflex) 2 mg Q12HR PO Last administered on 06/21/16 10:58; Start 06/19/16 at 09:00; Stop 06/21/16 at 13:25; Status DC Oxycodone HCl 2.5 mg 2.5 mg Q6H PRN PO pain 1-7 Last administered on 06/24/16 13:00; Start 06/19/16 at 08:15; Stop 06/24/16 at 16:18; Status DC Vancomycin HCl/ Sodium Chloride (Vancomycin Inj/ NS 500 ml Inj) 520 ml @ 257.5 mls/ hr Q12H IV ; Start 06/19/16 at 14:00; Stop 06/19/16 at 14:00; Status DC Miscellaneous Information SPECIFIC LAB TO BE DRAWN:VANCOMYCIN TROUGH DATE TO... ONCE ONCE .XX ; Start 06/21/16 at 01:45; Stop 06/21/16 at 01:45; Status DC Cefepime HCl 2000 mg/Sodium Chloride 100 ml @ 200 mls/hr Q12H IV Last administered on 06/26/16 00:00; Start 06/19/16 at 12:00; Stop 06/26/16 at 10:31 ; Status DC Norepinephrine Bitartrate 250 ml @ As Directed STK-MED ONCE IV Last administered on 06/19/16 16:09; Start 06/19/16 at 13:51; Stop 06/19/16 at 13:52 ; Status DC Sodium Chloride 1,000 ml @ 0 mls/hr BOLUS STAT IV ; Start 06/19/16 at 17:58; Stop 06/19/16 at 17:59; Status DC Fluconazole/ Sodium Chloride 200 ml @ 100 mls/hr Q24H IV Last administered on 06/22/16 09:12; Start 06/20/16 at 11:00; Stop 06/22/16 at 14:07; Status DC Vancomycin HCl 1500 mg/Sodium Chloride 515 ml @ 257.5 mls/ hr ONCE ONCE IV ; Start 06/20/16 at 11:00; Stop 06/20/16 at 11:26; Status DC Pharmacy Profile Note 0 ml @ 0 mls/hr UNSCH OTHER ; Start 06/20/16 at 11:00; Stop 06/22/16 at 14:07; Status DC Vancomycin HCl/ Sodium Chloride (Vancomycin Inj/ NS 500 ml Inj) 520 ml @ 250 mls/hr Q12H IV Last administered on 06/22/16 11:46; Start 06/20/16 at 13:00; Stop 06/22/16 at 14:07; Status DC Miscellaneous Information SPECIFIC LAB TO BE DRAWN:VANCO TROUGH DATE TO... ONCE ONCE .XX Last administered on 06/22/16 00:45; Start 06/22/16 at 00:45; Stop 06/22/16 at 00:46; Status DC Baclofen (Lioresal) 5 mg DAILY PO Last administered on 07/08/16 08:23; Start at 09:00 Pregabalin (Lyrica) 75 mg Q12HR PO Last administered on 07/08/16 08:23; Start 06/22/16 at 09:00 Miscellaneous Information SPECIFIC LAB TO BE ... ONCE ONCE .XX ; Start 06/23 at 12:45; Stop 06/23/16 at 12:45; Status DC Oxycodone HCl (Roxicodone) 2.5 mg Q4H PRN PO pain 1-6 Last administered on 08:23; Start 06/24/16 at 17:00 Polyethylene Glycol (Miralax) 17 gm BID PRN PO CONSTIPATION; Start 07/07/16 at 11:00 Date of Removal: Jun 29, 2016 A/P Assessment and Plan A/P Transaminitis. LFT improved. Abd pain, resolved Liver US shows fatty liver. Small stones or tumefactive sludge adherent to one of the gallbladder arcos. Splenomegaly. Avoid liver toxicity drugs. Hep panel negative Diabetes mellitus Currently on levemir 5 units HS. accu-check twice daily. Diabetic Neuropathy: patient c/o left leg tingling/pins and needle on the left leg and seem. continue Lyrica and Baclofen- PT ff Acute hypoxemic respiratory failure on T piece tolerates well [facility] History of staph aureus pneumonia/HCAP ARDS Currently on T-Piece, and tolerating well Pulm following. Trach collar with oxygen support to keep sat >92%. continue neb treatment. 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 Optifoam in place. Apply bacitracin. Wound cultures with normal sherine. Consult wound care, discussed with Nica from wound care, appreciate recommendations. Cleanse wound with NS and apply nonadhesive foam ag dressing over wound and change every other day and PRN for saturation or dislodgement. on silvadene cream daily Mild MR/TR. Monitor HR and BP keep MAP>65mmHg 2-D echo 03/26 EF 60%. No regional wall motion abnormality. Mild MR/TR. Hypokalemia-resolved Hypernatremia-resolved Hypophosphatemia-resolved Monitor renal function, and electrolytes periodically. Constipation-resolved Moderate protein calorie malnutrition Nausea and vomiting- resolved On tube feeding. Protonix 40mg daily On Reglan 10mg Q8, Senna and Colace twice a day. PEG tube placement- 3/2- tolerating TF Zofran 4 mg every 6 hours when necessary Likely SERENITY Toxic metabolic encephalopathy-resolved Continue with pain control. Seroquel 25mg BID initiated 3/3 Acetaminophen for fever Staph aureus pneumonia- PSAE,MSSA Possible staph bacteremia Finished course of abx- ID specialist signed off. Leukocytosis Monitor CBC/coags periodically. Morbid obesity BMI of 51.8 Weight loss encouraged. DVT, GI prophylaxis -Bilateral lower extremity SCDs. PEG Protonix 40 mg daily. Lovenox 40 mg sq BID Left shoulder pain- - limited range of motion- Xrays negative for dislocation. PT consulted. Discharge Planning needs SNF placement. dc planning in progress. Mg Stearns MD July 08, 2016 09:32
[2016-07-08] MEDS: INSULIN DETEMIR 100 UNITS/ML VIAL SQ SCH (21:08)
[2016-07-09] VITALS (8 sets, daily range): BP systolic 88–116; BP diastolic 49–67; PULSE 84–93; RESP 16–20; TEMP 98.1–99.6; O2SAT 90–97
[2016-07-09] MEDS: ARTIFICIAL TEARS OPTH SOLN 15 ML BTL EACH EYE SCH ×5 (02:00→18:07)
[2016-07-09] MEDS: ENOXAPARIN SODIUM 40 MG/0.4 ML SYRINGE SQ SCH ×2 (06:26→18:07)
[2016-07-09] MEDS: PREGABALIN 75 MG CAP PO SCH (07:52)
[2016-07-09] MEDS: BENEPROTEIN POWDER 1 PACK G-TUBE SCH ×3 (07:52→18:00)
[2016-07-09] MEDS: PANTOPRAZOLE SOD 40 MG DELAYED RELEASE TAB PO SCH (07:53)
[2016-07-09] MEDS: BACLOFEN 10 MG TAB PO SCH (07:53)
[2016-07-09] MEDS: BETAMETHASONE/CLOTRIMAZOLE CREAM 15 GM TOPICAL SCH (07:55)
[2016-07-09] MEDS: SILVER SULFADIAZINE 1% CR 400 GM JAR TOPICAL SCH (07:56)
[2016-07-09] MEDS: NYSTATIN 100,000 U/GM PWD 15 GM BTL TOPICAL SCH (07:56)
[2016-07-09] MEDS: SODIUM CHLORIDE 0.9% FLUSH 5 ML FLUSH IVF SCH (07:57)
[2016-07-09] MEDS: DOCUSATE SODIUM 100 MG/10 ML UDC PO SCH ×2 (07:57→21:00)
--- NOTE | 2016-07-09 13:00 | HHI.PR ---
Subjective Remarks resting comfortably with no distress. no pain. no new complaints. Objective Vitals Vital Signs Date Time Temp Pulse Resp B/P Pulse Ox O2 Delivery O2 Flow Rate FiO2 07/09/16 12:00 98.2 84 18 99/64 94 07/09/16 10:47 94 T-piece 5.00 28 07/09/16 08:40 Trach Collar 8.00 35 T-Piece 07/09/16 08:40 93 07/09/16 08:00 98.1 89 18 112/65 90 07/09/16 04:00 99.0 88 20 115/67 93 07/09/16 00:00 99.6 93 20 116/60 94 07/09/16 00:00 Trach Collar 6.00 35 T-Piece 07/08/16 21:35 95 T-piece 28 07/08/16 21:00 T-Piece 6.00 35 07/08/16 20:00 95 07/08/16 20:00 99.8 97 20 121/56 96 07/08/16 16:00 T-Piece 6.00 35 07/08/16 16:00 98.6 91 20 116/65 95 I/O 07/08/16 07/08/16 07/08/16 07/09/16 07/09/16 07/09/16 07:00 15:00 23:00 07:00 15:00 23:00 Intake Total 240 ml 2 ml 100 ml Output Total 500 ml 300 ml Balance -260 ml 2 ml -200 ml Intake Oral 240 ml 100 ml IV Total 2 ml Output Urine Total 500 ml 300 ml # Bowel Movements 0 Imaging Last Impressions Chest X-Ray 06/30/16 0600 Signed Impressions: Service Date/Time: Thursday, June 30, 2016 06:07 - CONCLUSION: No significant change. Mild bilateral perihilar and basilar consolidation again noted. Ubaldo Ortiz MD Shoulder X-Ray 06/28/16 0000 Signed Impressions: Service Date/Time: June 15:12 - CONCLUSION: 1. Limited but negative examination of the shoulder. Kyaw Rojo MD Abdomen X-Ray 06/19/16 0000 Signed Impressions: Service Date/Time: Sunday, June 19, 2016 10:43 - CONCLUSION: Gastric tube tip does not cross the diaphragm and the side port is approximately 8 cm above the diaphragm. Chano Goodwin MD Lower Extremity Ultrasound 06/04/16 0000 Signed Impressions: Service Date/Time: Saturday, June 04, 2016 14:54 - CONCLUSION: 1. No DVT identified. Dc Barton MD Liver Ultrasound 05/09/16 0000 Signed Impressions: Service Date/Time: Monday, May 09, 2016 22:28 - CONCLUSION: 1. Enlarged, fatty liver. 2. Small stones or tumefactive sludge adherent to one of the gallbladder arcos. 3. Splenomegaly. 4. Pancreas is obscured by overlying bowel gas and patient's body habitus. Arthur Kennedy MD Chest CT 03/28/16 0836 Signed Impressions: Service Date/Time: Monday, March 28, 2016 09:57 - CONCLUSION: Development areas of air bronchograms and consolidation more prominent in the right and left posterior basilar segments of the lower lobes. ET tube above the chanelle. Bernard Hartman MD CT Angiography 03/24/16 1121 Signed Impressions: Service Date/Time: Thursday, March 24, 2016 12:47 - CONCLUSION: 1. There is respiratory motion artifact but no PE is identified through most of the segmental level pulmonary arteries. 2. Mildly enlarged main pulmonary artery may indicate pulmonary arterial hypertension. 3. 11 mm left lower lobe noncalcified pulmonary nodule. Suggest correlation with any prior imaging studies that could confirm longer-term stability. If none are available consider short-term followup noncontrast chest CT in approximately 3 months. Ubaldo Rodas MD Objective Remarks GENERAL: in no apparent distress. Neck; trach in place CARDIOVASCULAR: Regular rate and regular rhythm without murmurs, gallops, or rubs. RESPIRATORY: Clear to auscultation. Breath sounds equal bilaterally. No wheezes , rales, or rhonchi. GASTROINTESTINAL: Abdomen soft, non-tender, nondistended. Normal, active bowel sounds MUSCULOSKELETAL: Extremities without clubbing, cyanosis, or edema. NEURO: Alert & Oriented x4 to person, place, time, situation. Moves all ext x4 Procedures 04/30/16 - tracheostomy by Dr. Reyes 05/03/16 - EGD with PEG placement by Dr. Faith 06/09/16 - PEG removal 06/21/16- repeat tracheostomy by Dr. Jazeravic Medications and IVs Current Medications IV Flush (NS Flush) 2 ml UNSCH PRN IVF FLUSH AFTER USING IV ACCESS Last administered on 05/23/16 05:55; Start 03/24/16 at 11:30 Iohexol (Omnipaque 350 Inj) 89 ml STK-MED ONCE IV Last administered on 13:08; Start 03/24/16 at 13:08; Stop 03/24/16 at 13:09; Status DC Albuterol/ Ipratropium (Duoneb Neb) 1 ampule Q6HR NEB NEB Last administered on 04/04/16 07:42; Start 03/24/16 at 17:00; Stop 04/04/16 at 07:43; Status DC Dextrose (D50w (Vial) Inj) 25 ml UNSCH PRN IV PUSH HYPOGLYCEMIA-SEE COMMENTS; Start 03/24/16 at 16:30; Stop 03/31/16 at 11:22; Status DC Glucagon (Glucagon Inj) 1 mg UNSCH PRN OTHER HYPOGLYCEMIA-SEE COMMENTS; Start 03/24/16 at 16:30; Stop 03/31/16 at 11:22; Status DC Insulin Human Regular (NovoLIN R SUPPLEMENTAL SCALE) 1 ACHS SLIDING SCALE SQ Last administered on 03/31/16 06:09; Start 03/24/16 at 21:00; Stop 03/31/16 at 11:16; Status DC Albuterol/ Ipratropium (Duoneb Neb) 1 ampule Q2HR NEB PRN NEB WHEEZING AND SOB Last administered on 04/20/16 08:10; Start 03/24/16 at 16:45; Stop 04/23/16 at 13:22; Status DC Enoxaparin Sodium (Lovenox Inj) 40 mg Q24H SQ Last administered on 03/25/16 17 :00; Start 03/24/16 at 17:00; Stop 03/26/16 at 16:40; Status DC Pantoprazole Sodium (Protonix) 40 mg DAILY PO Last administered on 03/26/16 08 :35; Start 03/25/16 at 09:00; Stop 03/26/16 at 16:40; Status DC Influenza Virus Vaccine (Flu (Quadrivalent) Vaccine Inj) 0.5 ml ONCE ONCE IM Last administered on 03/25/16 08:57; Start 03/25/16 at 10:00; Stop 03/25/16 at 10:01; Status DC Chlorhexidine Gluconate (Chlorhexidine 2% Cloth) 3 pack DAILY@04 TOP Last administered on 03/29/16 03:42; Start 03/25/16 at 04:00; Stop 03/29/16 at 04:01 ; Status DC Chlorhexidine Gluconate (Chlorhexidine 2% Cloth) 3 pack UNSCH PRN TOP HYGIENIC CARE; Start 03/24/16 at 19:15; Stop 03/29/16 at 19:07; Status DC Tiotropium [place] (Spiriva Inh) 18 mcg DAILY INH Last administered on 08:36; Start 03/25/16 at 13:45; Stop 05/05/16 at 13:25; Status DC Metformin HCl (Glucophage) 500 mg BIDPC PO Last administered on 03/28/16 08:18 ; Start 03/26/16 at 09:00; Stop 04/07/16 at 10:16; Status DC Betamethasone/ Clotrimazole (Lotrisone Cream) 1 applic Q12HR TOPICAL Last administered on 07/09/16 07:55; Start 03/26/16 at 09:00 Methylprednisolone Sodium Succinate 60 mg 60 mg Q12HR IV PUSH Last administered on 03/28/16 08:17; Start 03/26/16 at 13:30; Stop 03/28/16 at 10:25 ; Status DC Propofol (Diprivan 1000 Mg/100ml Inj) 100 ml @ As Directed STK-MED ONCE .ROUTE ; Start 03/26/16 at 13:16; Stop 03/26/16 at 13:17; Status DC Etomidate 40 mg 40 mg STK-MED ONCE .ROUTE ; Start 03/26/16 at 13:20; Stop at 13:21; Status DC Propofol 100 ml @ 0 mls/hr TITRATE IV Last administered on 04/15/16 06:35; Start 03/26/16 at 14:30; Stop 05/02/16 at 08:34; Status DC Fentanyl Citrate (fentaNYL DRIP) 250 ml @ 0 mls/hr TITRATE IV Last administered on 05/02/16 15:59; Start 03/26/16 at 14:30; Stop 05/02/16 at 19:46; Status DC Rocuronium [place] (Zemuron Inj) 50 mg STK-MED ONCE .ROUTE ; Start 03/26/16 at 15:38; Stop 03/26/16 at 15:39; Status DC Rocuronium [place] (Zemuron Inj) 50 mg STK-MED ONCE .ROUTE ; Start 03/26/16 at 15:40; Stop 03/26/16 at 15:41; Status DC Furosemide (Lasix Inj) 40 mg ONCE ONCE IV PUSH Last administered on 03/26/16 18:00; Start 03/26/16 at 16:45; Stop 03/26/16 at 17:08; Status DC Furosemide (Lasix Inj) 20 mg BID@09,18 IV PUSH Last administered on 03/29/16 08:06; Start 03/26/16 at 18:00; Stop 03/29/16 at 08:43; Status DC Pantoprazole Sodium (Protonix Inj) 40 mg Q24H IV PUSH Last administered on 05/24 18:00; Start 03/26/16 at 18:00; Stop 05/25/16 at 12:09; Status DC Enoxaparin Sodium 40 mg 40 mg Q12H SQ Last administered on 07/09/16 06:26; Start 03/26/16 at 18:00 Aztreonam 2000 mg/ Sodium Chloride 100 ml @ 200 mls/hr Q8H IV Last administered on 03/31/16 10:23; Start 03/26/16 at 18:00; Stop 03/31/16 at 13:55 ; Status DC Potassium Chloride 100 ml @ 50 mls/hr Q2H PRN IV For Potassium 2.8 - 3.2 mEq/ L Last administered on 05/03/16 23:31; Start 03/26/16 at 16:45; Stop 05/17/16 at 17:12; Status DC Potassium Chloride (KCl 20 Meq Premix Inj) 100 ml @ 50 mls/hr Q2H PRN IV For Potassium 2.8 - 3.2 mEq/L Last administered on 05/07/16 23:26; Start 03/26/16 at 16:45; Stop 05/17/16 at 17:12; Status DC Potassium Chloride 40 meq 40 meq UNSCH PRN PO/TUBE For Potassium 3.3 - 3.5 mEq/ L Last administered on 05/17/16 09:28; Start 03/26/16 at 16:45; Stop 05/17/16 at 17:12; Status DC Potassium Chloride 100 ml @ 25 mls/hr UNSCH PRN IV For Potassium 3.3 - 3.5 mEq /L Last administered on 04/20/16 09:17; Start 03/26/16 at 16:45; Stop 05/17/16 at 17:12; Status DC Potassium Chloride 100 ml @ 50 mls/hr Q2H PRN IV For Potassium 3.3 - 3.5 mEq/ L Last administered on 05/08/16 11:22; Start 03/26/16 at 16:45; Stop 05/17/16 at 17:12; Status DC Magnesium Sulfate/ Sodium Chloride (Magnesium Sulfate Inj/NS Inj) 100 ml @ 50 mls/hr UNSCH PRN IV For Magnesium 0.9 - 1.1 mg/dL; Start 03/26/16 at 16:45; Stop 05/17/16 at 17:12; Status DC Magnesium Oxide 800 mg 800 mg UNSCH PRN PO For Magnesium 1.2 - 1.6 mg/dL; Start 03/26/16 at 16:45; Stop 05/17/16 at 17:12; Status DC Magnesium Sulfate/ Sodium Chloride (Magnesium Sulfate Inj/NS Inj) 100 ml @ 50 mls/hr UNSCH PRN IV For Magnesium 1.2 - 1.6 mg/dL; Start 03/26/16 at 16:45; Stop 05/17/16 at 17:12; Status DC Potassium Phosphate 2000 mg 2,000 mg Q4H PRN PO For Phosphorus < 2.5 mg/dL Last administered on 04/01/16 05:08; Start 03/26/16 at 16:45; Stop 05/17/16 at 17:12; Status DC Sodium Phosphate/ Sodium Chloride (Sodium Phosphate Inj/NS 250 ml Inj) 250 ml @ 42 mls/hr UNSCH PRN IV For Phosphorus < 2.5 mg/dL Last administered on 14:19; Start 03/26/16 at 16:45; Stop 05/17/16 at 17:12; Status DC Potassium Chloride (KCl 40 Meq/30 ml Liq) 40 meq UNSCH PRN PO/TUBE SEE LABEL COMMENTS; Start 03/26/16 at 16:45; Stop 05/17/16 at 17:12; Status DC Potassium Phosphate 2000 mg 2,000 mg UNSCH PRN PO/TUBE SEE LABEL COMMENTS; Start 03/26/16 at 16:45; Stop 05/17/16 at 17:12; Status DC Potassium Phosphate/Sodium Chloride (Potassium Phosphate Inj/NS 250 ml Inj) 260 ml @ 42 mls/hr UNSCH PRN IV SEE LABEL COMMENTS Last administered on 05/03/16 08:23; Start 03/26/16 at 16:45; Stop 05/17/16 at 17:12; Status DC Potassium Chloride 40 meq 40 meq DAILY PO Last administered on 04/01/16 09:18 ; Start 03/26/16 at 18:00; Stop 04/02/16 at 07:20; Status DC Metronidazole (Flagyl 500 Mg Inj) 100 ml @ 100 mls/hr Q8H IV Last administered on 04/10/16 07:44; Start 03/27/16 at 08:00; Stop 04/10/16 at 13:30; Status DC Protein 1 pack 1 pack TID G-TUBE Last administered on 07/08/16 17:40; Start at 09:00 Vancomycin HCl 1500 mg/Sodium Chloride 515 ml @ 257.5 mls/ hr ONCE ONCE IV Last administered on 03/27/16 10:21; Start 03/27/16 at 09:00; Stop 03/27/16 at 10:59; Status DC Pharmacy Profile Note 0 ml @ 0 mls/hr UNSCH OTHER ; Start 03/27/16 at 08:00; Stop 03/31/16 at 13:55; Status DC Vancomycin HCl/ Sodium Chloride (Vancomycin Inj/ NS 500 ml Inj) 520 ml @ 260 mls/hr Q24H IV Last administered on 03/30/16 04:04; Start 03/28/16 at 04:00; Stop 03/30/16 at 11:11; Status DC Miscellaneous Information SPECIFIC LAB TO BE ISHAAN... ONCE ONCE XX Last administered on 03/30/16 03:45; Start 03/30/16 at 03:45; Stop 03/30/16 at 03:46 ; Status DC Insulin Detemir 5 units 5 units Q12HR SQ Last administered on 03/31/16 21:17; Start 03/28/16 at 11:00; Stop 04/01/16 at 08:57; Status DC Pharmacy Profile Note (Vancomycin Consult Pharmacy) 0 ml @ 0 mls/hr UNSCH OTHER ; Start 03/28/16 at 10:15; Status UNV Methylprednisolone Sodium Succinate (SoluMEDROL INJ) 40 mg Q12HR IV PUSH Last administered on 04/17/16 07:26; Start 03/28/16 at 21:00; Stop 04/17/16 at 09:03 ; Status DC Docusate Sodium (Colace Liq) 100 mg Q12HR PO Last administered on 06/29/16 08: 14; Start 03/29/16 at 09:00 Sennosides (Senna Liq) 8.8 mg DAILY PO Last administered on 03/31/16 08:40; Start 03/29/16 at 09:00; Stop 04/01/16 at 08:57; Status DC Furosemide (Lasix Inj) 40 mg BID@09,18 IV PUSH ; Start 03/29/16 at 18:00; Stop 03/29/16 at 18:00; Status DC Furosemide 40 mg 40 mg BID@09,18 IV PUSH Last administered on 04/01/16 17:37; Start 03/29/16 at 09:00; Stop 04/02/16 at 07:14; Status DC Vancomycin HCl/ Sodium Chloride (Vancomycin Inj/ NS 500 ml Inj) 517.5 ml @ 250 mls/hr Q12H IV Last administered on 03/31/16 03:19; Start 03/30/16 at 16:00; Stop 03/31/16 at 13:55; Status DC Miscellaneous Information SPECIFIC LAB TO BE ISHAAN... ONCE ONCE XX Last administered on 03/31/16 15:41; Start 03/31/16 at 15:45; Stop 03/31/16 at 15:46 ; Status DC Acetaminophen (Tylenol 650 Mg/ 20 ml Liq) 650 mg Q6H PRN PO fever or pain 1-5 Last administered on 06/23/16 21:37; Start 03/30/16 at 15:45 Bumetanide (Bumex Inj) 1 mg ONCE ONCE IV PUSH ; Start 03/31/16 at 09:30; Stop 03/31/16 at 10:40; Status DC Dextrose (D50w (Vial) Inj) 25 ml UNSCH PRN IV PUSH HYPOGLYCEMIA-SEE COMMENTS; Start 03/31/16 at 11:15; Stop 04/03/16 at 17:53; Status DC Glucagon (Glucagon Inj) 1 mg UNSCH PRN OTHER HYPOGLYCEMIA-SEE COMMENTS; Start 03/31/16 at 11:15; Stop 04/07/16 at 10:46; Status DC Insulin Human Regular 1 1 Q6H SQ Last administered on 04/03/16 17:48; Start at 12:00; Stop 04/03/16 at 17:54; Status DC Levofloxacin/ Dextrose 150 ml @ 100 mls/hr Q24H IV Last administered on 14:07; Start 03/31/16 at 14:00; Stop 04/16/16 at 09:51; Status DC Fluconazole/ Sodium Chloride 200 ml @ 100 mls/hr Q24H IV Last administered on 04/09/16 15:48; Start 03/31/16 at 16:00; Stop 04/10/16 at 13:31; Status DC Linezolid 300 ml @ 300 mls/hr Q12H IV Last administered on 04/04/16 02:45; Start 03/31/16 at 15:00; Stop 04/04/16 at 09:59; Status DC Cisatracurium Besylate 100 mg/ Sodium Chloride 250 ml @ 0 mls/hr TITRATE IV Last administered on 04/14/16 11:39; Start 04/01/16 at 09:00; Stop 04/15/16 at 09:02; Status DC Epoprostenol Sodium/Sodium Chloride (Flolan (30,000 Ng/ml) Neb/NS Inj) 100 ml @ 8 mls/hr Q8H NEB Last administered on 04/15/16 02:32; Start 04/01/16 at 10:00 ; Stop 04/15/16 at 09:02; Status DC Insulin Detemir (Levemir Inj) 15 units Q12HR SQ Last administered on 04/01/16 20:13; Start 04/01/16 at 09:00; Stop 04/02/16 at 07:14; Status DC Sennosides (Senna Liq) 8.8 mg BID PO/TUBE Last administered on 06/26/16 09:07 ; Start 04/01/16 at 09:00; Stop 07/07/16 at 10:55; Status DC Polyethylene Glycol (Miralax) 17 gm BID PO Last administered on 04/03/16 21:14 ; Start 04/01/16 at 09:00; Stop 04/23/16 at 13:31; Status DC Lactulose (Lactulose Liq) 30 ml QID PO Last administered on 04/01/16 20:13; Start 04/01/16 at 09:00; Stop 04/02/16 at 07:14; Status DC Methylnaltrexone [place] (Relistor Inj) 12 mg ONCE ONCE SQ Last administered on 04/01/16 11:44; Start 04/01/16 at 10:30; Stop 04/01/16 at 10:31; Status DC Metoclopramide HCl (Reglan Inj) 5 mg Q8HR IV PUSH Last administered on 05:42; Start 04/01/16 at 14:00; Stop 04/11/16 at 09:15; Status DC Glycerin (Glycerin Adult Supp) 2 gm BID PRN RECTAL CONSTIPATION Last administered on 04/25/16 10:22; Start 04/01/16 at 09:00 Glycerin (Glycerin Adult Supp) 2 gm ONCE ONCE RECTAL Last administered on 04/01 10:52; Start 04/01/16 at 09:30; Stop 04/01/16 at 09:31; Status DC Mineral Oil (Mineral Oil Liq) 15 ml ONCE ONCE PO Last administered on 10:00; Start 04/01/16 at 10:00; Stop 04/01/16 at 10:01; Status DC Chlorhexidine Gluconate 15 ml 15 ml BID@08,20 MT Last administered on 07/02/16 20:00; Start 04/01/16 at 20:00; Stop 07/07/16 at 10:56; Status DC Midazolam HCl 100 ml @ 0 mls/hr TITRATE IV Last administered on 05/01/16 14:25 ; Start 04/01/16 at 11:45; Stop 05/02/16 at 08:35; Status DC Norepinephrine Bitartrate (Levophed-Dextrose Drip) 250 ml @ 0 mls/hr TITRATE IV Last administered on 04/01/16 21:15; Start 04/01/16 at 20:30; Stop 04/07/16 at 10:10; Status DC Furosemide (Lasix Inj) 20 mg BID@09,18 IV PUSH Last administered on 04/03/16 08:17; Start 04/02/16 at 09:00; Stop 04/03/16 at 12:58; Status DC Insulin Detemir (Levemir Inj) 25 units Q12HR SQ Last administered on 04/03/16 08:17; Start 04/02/16 at 09:00; Stop 04/03/16 at 12:48; Status DC IV Flush (NS Flush) DAILY IVF Last administered on 07/09/16 07:57; Start 04/03 at 09:00 IV Flush (NS Flush) UNSCH PRN IVF SEE PROTOCOL Last administered on 04/22/16 07:42; Start 04/02/16 at 09:30 Artificial Tears (Lacrilube Opht Oint) 1 applic Q12HR EACH EYE Last administered on 06/02/16 08:46; Start 04/02/16 at 12:00; Stop 06/02/16 at 14:00; Status DC Lactobacillus Acidophilus (Lactinex) 1 tab TID PO Last administered on 12:40; Start 04/03/16 at 13:00; Stop 07/07/16 at 13:12; Status DC Insulin Detemir (Levemir Inj) 40 units Q12HR SQ ; Start 04/03/16 at 21:00; Stop 04/03/16 at 21:00; Status DC Insulin Human NPH 15 units 15 units ONCE ONCE SQ Last administered on 13:08; Start 04/03/16 at 13:00; Stop 04/03/16 at 13:01; Status DC Sodium Chloride (NS 1000 ml Inj) 1,000 ml @ 999 mls/hr BOLUS ONCE IV Last administered on 04/03/16 13:10; Start 04/03/16 at 13:00; Stop 04/03/16 at 14:00 ; Status DC Sodium Polystyrene Sulfonate 15 gm 15 gm ONCE ONCE PO Last administered on 13:22; Start 04/03/16 at 13:00; Stop 04/03/16 at 13:08; Status DC Insulin Human Regular/Sodium Chloride (NovoLIN R (IV INFUSION)/NS Inj) 100 ml @ 0 mls/hr TITRATE IV Last administered on 04/03/16 22:44; Start 04/03/16 at 18: 00; Stop 04/04/16 at 09:12; Status DC Dextrose (D50w (Vial) Inj) 25 ml UNSCH PRN IV PUSH SEE LABEL COMMENTS; Start at 17:45; Stop 04/04/16 at 09:14; Status DC Miscellaneous Information 1 ONCE ONCE XX Last administered on 04/03/16 20:27 ; Start 04/03/16 at 17:45; Stop 04/03/16 at 17:52; Status DC Albuterol/ Ipratropium (Duoneb Neb) 1 ampule Q4HR NEB NEB Last administered on 04/08/16 03:48; Start 04/04/16 at 08:00; Stop 04/08/16 at 08:00; Status DC Furosemide 20 mg 20 mg BID@09,18 IV PUSH Last administered on 04/15/16 08:12; Start 04/04/16 at 09:00; Stop 04/15/16 at 09:53; Status DC Insulin Human Regular/Sodium Chloride (NovoLIN R (IV INFUSION)/NS Inj) 100 ml @ 0 mls/hr TITRATE IV Last administered on 04/07/16 04:33; Start 04/04/16 at 09:00 ; Stop 04/07/16 at 10:11; Status DC Dextrose (D50w (Vial) Inj) 25 ml UNSCH PRN IV PUSH SEE LABEL COMMENTS; Start at 09:00; Stop 04/07/16 at 10:46; Status DC Miscellaneous Information 1 ONCE ONCE XX Last administered on 04/04/16 10:00; Start 04/04/16 at 10:00; Stop 04/04/16 at 10:01; Status DC Insulin Detemir (Levemir Inj) 60 units Q12HR SQ Last administered on 04/07/16 07:41; Start 04/05/16 at 11:00; Stop 04/08/16 at 08:14; Status DC Dextrose (D50w (Vial) Inj) 25 ml UNSCH PRN IV PUSH HYPOGLYCEMIA-SEE COMMENTS; Start 04/07/16 at 10:15; Stop 04/07/16 at 17:03; Status DC Glucagon (Glucagon Inj) 1 mg UNSCH PRN OTHER HYPOGLYCEMIA-SEE COMMENTS; Start 04/07/16 at 10:15; Stop 04/07/16 at 17:03; Status DC Insulin Human Regular (NovoLIN R SUPPLEMENTAL SCALE) 1 Q6H SQ Last administered on 04/07/16 10:56; Start 04/07/16 at 11:00; Stop 04/07/16 at 17:01; Status DC Insulin Detemir (Levemir Inj) 20 units Q12HR SQ Last administered on 04/08/16 07:26; Start 04/07/16 at 21:00; Stop 04/08/16 at 08:14; Status DC Dextrose (D50w (Vial) Inj) 25 ml UNSCH PRN IV PUSH HYPOGLYCEMIA-SEE COMMENTS; Start 04/07/16 at 17:00; Stop 05/13/16 at 13:50; Status DC Glucagon (Glucagon Inj) 1 mg UNSCH PRN OTHER HYPOGLYCEMIA-SEE COMMENTS; Start 04/07/16 at 17:00; Stop 05/13/16 at 13:50; Status DC Insulin Human Regular (NovoLIN R SUPPLEMENTAL SCALE) 1 Q6H SQ Last administered on 05/11/16 17:08; Start 04/07/16 at 18:00; Stop 05/13/16 at 13:50 ; Status DC Insulin Detemir 24 units 24 units Q12HR SQ Last administered on 04/09/16 07:37 ; Start 04/08/16 at 21:00; Stop 04/09/16 at 10:01; Status DC Vancomycin HCl 1750 mg/Sodium Chloride 517.5 ml @ 258.75 mls/ hr ONCE ONCE IV Last administered on 04/08/16 14:42; Start 04/08/16 at 13:00; Stop 04/08/16 at 14:59; Status DC Sodium Chloride (NS 500 ml Inj) 500 ml @ 500 mls/hr BOLUS ONCE IV Last administered on 04/08/16 17:20; Start 04/08/16 at 17:15; Stop 04/08/16 at 18:14; Status DC Insulin Detemir 30 units 30 units Q12HR SQ Last administered on 04/10/16 08:29 ; Start 04/09/16 at 21:00; Stop 04/10/16 at 10:25; Status DC Pharmacy Profile Note 0 ml @ 0 mls/hr UNSCH OTHER ; Start 04/09/16 at 10:30; Stop 04/12/16 at 13:55; Status DC Vancomycin HCl/ Sodium Chloride (Vancomycin Inj/ NS 500 ml Inj) 515 ml @ 257.5 mls/ hr Q12H IV Last administered on 04/10/16 11:16; Start 04/09/16 at 12:00; Stop 04/10/16 at 13:51; Status DC Miscellaneous Information SPECIFIC LAB TO BE DRAWN:[facility]... ONCE ONCE XX ; Start 04/10/16 at 11:45; Stop 04/10/16 at 11:46; Status DC Insulin Detemir 35 units 35 units Q12HR SQ Last administered on 04/11/16 08:07 ; Start 04/10/16 at 21:00; Stop 04/11/16 at 09:15; Status DC Vancomycin HCl/ Sodium Chloride (Vancomycin Inj/ NS 500 ml Inj) 520 ml @ 260 mls/hr Q12H IV Last administered on 04/12/16 08:14; Start 04/10/16 at 20:00; Stop 04/12/16 at 13:55; Status DC Miscellaneous Information SPECIFIC LAB TO BE ISHAAN... ONCE ONCE XX Last administered on 04/12/16 07:45; Start 04/12/16 at 07:45; Stop 04/12/16 at 07:46; Status DC Insulin Detemir (Levemir Inj) 45 units Q12HR SQ Last administered on 04/23/16 08:29; Start 04/11/16 at 21:00; Stop 04/23/16 at 13:24; Status DC Metoclopramide HCl 10 mg 10 mg Q8HR IV PUSH Last administered on 05/25/16 06: 05; Start 04/11/16 at 14:00; Stop 05/25/16 at 12:09; Status DC Sodium Chloride (NS 1000 ml Inj) 2,000 ml @ 0 mls/hr NOW ONCE IV Last administered on 2/8/17at 21:01; Start 04/11/16 at 21:00; Stop 04/11/16 at 21:01; Status DC Miscellaneous Information SPECIFIC LAB TO BE DRAWN:VANCOMYCIN TROUGH DATE TO... ONCE ONCE XX ; Start 04/13/16 at 19:45; Stop 04/13/16 at 19:46; Status Cancel Furosemide 20 mg 20 mg Q6H IV PUSH Last administered on 04/16/16 08:40; Start 04/12/16 at 15:00; Stop 04/16/16 at 09:25; Status DC Epoprostenol Sodium 30 ml/ Sodium Chloride 67.5 ml @ 8 mls/hr Q8H NEB ; Start 04/15/16 at 10:00; Stop 04/15/16 at 10:00; Status DC Epoprostenol Sodium/Sodium Chloride (Flolan (30,000 Ng/ml) Neb/NS Inj) 100 ml @ 8 mls/hr Q8H NEB Last administered on 04/18/16 02:09; Start 04/15/16 at 10:00 ; Stop 04/18/16 at 10:15; Status DC Furosemide (Lasix Inj) 20 mg Q8H IV PUSH Last administered on 04/23/16 08:31; Start 04/16/16 at 17:00; Stop 04/23/16 at 13:44; Status DC Methylprednisolone Sodium Succinate 40 mg 40 mg DAILY IV PUSH Last administered on 05/02/16 08:11; Start 04/18/16 at 09:00; Stop 05/02/16 at 08:39; Status DC Epoprostenol Sodium 25 ml/ Sodium Chloride 100 ml @ 8 mls/hr Q8H NEB Last administered on 04/19/16 13:12; Start 04/18/16 at 15:00; Stop 04/19/16 at 15:59 ; Status DC Vancomycin HCl 1500 mg/Sodium Chloride 515 ml @ 257.5 mls/ hr ONCE ONCE IV Last administered on 04/19/16 13:45; Start 04/19/16 at 13:00; Stop 04/19/16 at 14:59; Status DC Epoprostenol Sodium 12.5 ml/ Sodium Chloride 100 ml @ 8 mls/hr Q8H NEB Last administered on 04/20/16 00:29; Start 04/19/16 at 16:00; Stop 04/20/16 at 15:11 ; Status DC Pharmacy Profile Note 0 ml @ 0 mls/hr UNSCH OTHER ; Start 04/20/16 at 14:15; Stop 04/29/16 at 10:33; Status DC Vancomycin HCl/ Sodium Chloride (Vancomycin Inj/ NS 500 ml Inj) 520 ml @ 250 mls/hr Q12H IV Last administered on 04/24/16 05:53; Start 04/20/16 at 18:00; Stop 04/24/16 at 09:15; Status DC Miscellaneous Information SPECIFIC LAB TO BE DRAWN:VANCO TROUGH DATE TO... ONCE ONCE XX Last administered on 04/22/16 05:45; Start 04/22/16 at 05:45; Stop 04/22/16 at 05:46; Status DC Potassium Bicarb/ Potassium Chloride (K-Lyte Cl Eff) 25 meq Q12HR PO Last administered on 04/28/16 07:49; Start 04/21/16 at 21:00; Stop 05/27/16 at 08:44 ; Status DC Artificial Tears (Tears Naturale Opth Soln) 1 drop Q4H EACH EYE Last administered on 07/09/16 07:57; Start 04/21/16 at 18:00 Water (Free Water) 200 ml Q6HR G-TUBE Last administered on 04/30/16 12:00; Start 04/22/16 at 18:00; Stop 05/01/16 at 17:19; Status DC Albuterol/ Ipratropium (Duoneb Neb) 1 ampule Q6HR NEB NEB Last administered on 04/27/16 08:03; Start 04/23/16 at 16:00; Stop 04/27/16 at 16:00; Status DC Albuterol/ Ipratropium (Duoneb Neb) 1 ampule Q2HR NEB PRN NEB [id number] Last administered on 05/11/16 15:54; Start 04/23/16 at 13:15; Stop 05/17/16 at 20:14 ; Status DC Insulin Detemir (Levemir Inj) 55 units Q12HR SQ Last administered on 04/24/16 08:34; Start 04/23/16 at 21:00; Stop 04/24/16 at 12:17; Status DC Polyethylene Glycol (Miralax) 17 gm BID PO Last administered on 07/01/16 20:31 ; Start 04/24/16 at 09:00; Stop 07/07/16 at 10:55; Status DC Furosemide 20 mg 20 mg BID IV PUSH Last administered on 04/28/16 07:50; Start 04/23/16 at 21:00; Stop 04/28/16 at 11:08; Status DC Vancomycin HCl/ Sodium Chloride (Vancomycin Inj/ NS 500 ml Inj) 515 ml @ 257.5 mls/ hr Q12H IV Last administered on 04/28/16 11:59; Start 04/24/16 at 23:00; Stop 04/28/16 at 14:04; Status DC Miscellaneous Information SPECIFIC LAB TO BE ISHAAN... ONCE ONCE XX Last administered on 04/25/16 22:45; Start 04/25/16 at 22:45; Stop 04/25/16 at 22:46 ; Status DC Insulin Detemir (Levemir Inj) 65 units Q12HR SQ Last administered on 04/25/16 09:00; Start 04/24/16 at 21:00; Stop 04/25/16 at 15:10; Status DC Polyethylene Glycol (Miralax) 17 gm ONCE ONCE PO Last administered on 16:21; Start 04/25/16 at 15:15; Stop 04/25/16 at 15:16; Status DC Polyethylene Glycol (Miralax) 17 gm DAILY PO ; Start 04/26/16 at 09:00; Stop at 11:33; Status DC Mineral Oil (Mineral Oil Liq) 15 ml ONCE ONCE PO Last administered on 16:21; Start 04/25/16 at 16:00; Stop 04/25/16 at 16:01; Status DC Potassium Chloride (KCl 40 Meq/30 ml Liq) 40 meq ONCE ONCE PO Last administered on 04/25/16 16:21; Start 04/25/16 at 15:15; Stop 04/25/16 at 15:16 ; Status DC Insulin Detemir (Levemir Inj) 75 units Q12HR SQ Last administered on 04/26/16 09:13; Start 04/25/16 at 21:00; Stop 04/26/16 at 14:43; Status DC Methylnaltrexone [place] (Relistor Inj) 12 mg ONCE ONCE SQ Last administered on 04/25/16 16:22; Start 04/25/16 at 16:00; Stop 04/25/16 at 16:01; Status DC Miscellaneous Information SPECIFIC LAB TO BE DRAWN:VANCO TROUGH DATE TO BE DR... ONCE ONCE XX Last administered on 04/28/16 10:45; Start 04/28/16 at 10: 45; Stop 04/28/16 at 10:46; Status DC Methylnaltrexone [place] (Relistor Inj) 12 mg ONCE ONCE SQ Last administered on 04/26/16 15:18; Start 04/26/16 at 14:30; Stop 04/26/16 at 14:56; Status DC Lactulose (Lactulose Liq) 30 ml QID PO Last administered on 04/28/16 07:47; Start 04/26/16 at 18:00; Stop 05/27/16 at 08:44; Status DC Mineral Oil (Mineral Oil Liq) 15 ml ONCE ONCE PO Last administered on 15:19; Start 04/26/16 at 14:30; Stop 04/26/16 at 14:56; Status DC Sennosides (Senna Liq) 8.8 mg ONCE ONCE PO Last administered on 04/26/16 15: 25; Start 04/26/16 at 14:30; Stop 04/26/16 at 14:56; Status DC Magnesium Citrate (Citroma Liq) 300 ml ONCE ONCE PO Last administered on 15:25; Start 04/26/16 at 14:45; Stop 04/26/16 at 14:56; Status DC Potassium Chloride (KCl 40 Meq/30 ml Liq) 40 meq ONCE ONCE PO Last administered on 04/26/16 15:25; Start 04/26/16 at 14:45; Stop 04/26/16 at 14:56 ; Status DC Insulin Detemir (Levemir Inj) 80 units Q12HR SQ Last administered on 04/28/16 07:49; Start 04/26/16 at 21:00; Stop 04/28/16 at 11:19; Status DC Nystatin 1 applic 1 applic Q12HR TOPICAL Last administered on 07/09/16 07:56; Start 04/27/16 at 11:00 Aztreonam/Sodium Chloride (Azactam Inj/NS Inj) 100 ml @ 200 mls/hr Q8H IV Last administered on 04/29/16 02:39; Start 04/27/16 at 10:00; Stop 04/29/16 at 10:34; Status DC Potassium Chloride (KCl 40 Meq/30 ml Liq) 40 meq ONCE ONCE PO Last administered on 04/27/16 13:00; Start 04/27/16 at 13:00; Stop 04/27/16 at 13:02 ; Status DC Albuterol/ Ipratropium (Duoneb Neb) 1 ampule Q4HR NEB NEB Last administered on 05/02/16 07:53; Start 04/28/16 at 12:00; Stop 05/02/16 at 12:00; Status DC Sodium Chloride 2 ml 2 ml Q8HR NEB NEB Last administered on 05/01/16 07:21; Start 04/28/16 at 16:00; Stop 05/01/16 at 15:59; Status DC Sodium Chloride/ Sterile Water (Sodium Chloride 23.4% Inj/Sterile Water For Inj ) 1,009.625 ml @ 84 mls/hr Q12H2M IV Last administered on 04/28/16 13:23; Start 04/28/16 at 13:00; Stop 04/29/16 at 01:01; Status DC Insulin Detemir 70 units 70 units Q12HR SQ Last administered on 05/03/16 08:08 ; Start 04/28/16 at 21:00; Stop 05/05/16 at 17:18; Status DC Vancomycin HCl/ Sodium Chloride (Vancomycin Inj/ NS 250 ml Inj) 262.5 ml @ 250 mls/hr Q12H IV Last administered on 04/29/16 00:18; Start 04/28/16 at 23:00; Stop 04/29/16 at 10:34; Status DC Miscellaneous Information SPECIFIC LAB TO BE ISHAAN... ONCE ONCE XX ; Start at 10:45; Stop 04/30/16 at 10:45; Status DC Clindamycin Phosphate/Sodium Chloride (Cleocin Inj/NS Inj) 104 ml @ 208 mls/hr Q8H IV Last administered on 05/06/16 15:52; Start 04/29/16 at 12:00; Stop at 12:00; Status DC Lidocaine/ Epinephrine (Xylocaine-Epi 1%-1:100,000 Inj) 30 ml STK-MED ONCE .ROUTE ; Start 04/30/16 at 13:00; Stop 04/30/16 at 13:01; Status DC Fentanyl Citrate 250 mcg 250 mcg STK-MED ONCE .ROUTE ; Start 04/30/16 at 15:28; Stop 04/30/16 at 15:29; Status DC Dexmedetomidine HCl (Precedex Inj) 50 ml @ 0 mls/hr TITRATE IV Last administered on 05/02/16 18:32; Start 05/01/16 at 17:00; Stop 05/02/16 at 19:00; Status DC Water (Free Water) 100 ml Q6HR G-TUBE Last administered on 06/09/16 12:00; Start 05/01/16 at 18:00; Stop 06/10/16 at 15:51; Status DC Fentanyl (Duragesic 25 Mcg Patch.72 Hr) 1 patch Q3D TD Last administered on 09:05; Start 05/02/16 at 09:00; Stop 06/19/16 at 08:05; Status DC Miscellaneous Information 1 Q3D T-DERMAL Last administered on 06/13/16 08:23; Start 05/05/16 at 09:00; Stop 06/19/16 at 08:05; Status DC Oxycodone HCl (Roxicodone Intensol Liq) 5 mg Q6H PRN PO PAIN SCALE 7 TO 10 Last administered on 05/23/16 05:54; Start 05/02/16 at 08:45; Stop 06/05/16 at 22 :00; Status DC Acetaminophen/ Hydrocodone Bitart ([place] 5-325 Mg) 1 tab Q6H PO Last administered on 05/06/16 15:52; Start 05/02/16 at 09:00; Stop 05/06/16 at 18:52; Status DC Methylprednisolone Sodium Succinate (SoluMEDROL INJ) 30 mg DAILY IV PUSH Last administered on 05/04/16 07:55; Start 05/03/16 at 09:00; Stop 05/04/16 at 10:09; Status DC Midazolam HCl (Versed Inj) 5 mg STK-MED ONCE .ROUTE Last administered on 16:18; Start 05/02/16 at 16:14; Stop 05/02/16 at 16:15; Status DC Lorazepam (Ativan Inj) 2 mg STK-MED ONCE .ROUTE Last administered on 05/02/16 16:19; Start 05/02/16 at 16:15; Stop 05/02/16 at 16:16; Status DC Midazolam HCl (Versed Inj) 5 mg NOW ONCE IV Last administered on 05/02/16 16: 30; Start 05/02/16 at 16:30; Stop 05/02/16 at 16:31; Status DC Lorazepam 2 mg 2 mg Q4H PRN IVP AGITATION Last administered on 06/13/16 21:22 ; Start 05/02/16 at 16:30; Stop 06/19/16 at 08:05; Status DC Dexmedetomidine HCl/Sodium Chloride (Precedex Inj/NS 250 ml Inj) 260 ml @ 0 mls/ hr TITRATE IV Last administered on 05/04/16 09:53; Start 05/02/16 at 19:01; Stop 05/04/16 at 16:31; Status DC Hydralazine HCl (Apresoline Inj) 10 mg Q4H PRN IV PUSH SBP >165 Last administered on 05/03/16 06:20; Start 05/02/16 at 22:00; Stop 06/05/16 at 20:34; Status DC Propofol (Diprivan 200 Mg/20 ml Inj) 170 mg STK-MED ONCE IV ; Start 05/03/16 at 15:06; Stop 05/03/16 at 15:07; Status DC Quetiapine Fumarate (SEROquel) 25 mg BID PO Last administered on 06/21/16 10: 58; Start 05/04/16 at 09:00; Stop 06/21/16 at 13:25; Status DC Methylprednisolone Sodium Succinate (SoluMEDROL INJ) 20 mg DAILY IV PUSH Last administered on 05/11/16 08:02; Start 05/05/16 at 09:00; Stop 05/12/16 at 09:13 ; Status DC Fentanyl Citrate (fentaNYL INJ) 50 mcg NOW ONCE IV Last administered on 01:03; Start 05/05/16 at 01:00; Stop 05/05/16 at 01:02; Status DC Metoprolol Tartrate (Lopressor Inj) 2.5 mg NOW ONCE IV PUSH Last administered on 05/05/16 04:17; Start 05/05/16 at 04:00; Stop 05/05/16 at 04:01; Status DC Ondansetron HCl (Zofran Inj) 4 mg Q6H PRN IV NAUSEA OR VOMITING; Start 05/05/16 at 06:45 Bumetanide (Bumex Inj) 0.5 mg DAILY IV PUSH Last administered on 05/24/16 09: 25; Start 05/05/16 at 09:00; Stop 05/24/16 at 10:39; Status DC Albuterol/ Ipratropium (Duoneb Neb) 1 ampule TID NEB INH Last administered on 05/09/16 13:05; Start 05/05/16 at 14:00; Stop 05/09/16 at 14:00; Status DC Insulin Detemir (Levemir Inj) 50 units Q12HR SQ Last administered on 05/11/16 20:54; Start 05/05/16 at 21:00; Stop 05/13/16 at 13:50; Status DC Acetaminophen/ Hydrocodone Bitart ([place] 5-325 Mg) 1 tab Q12HR PO Last administered on 06/18/16 19:40; Start 05/06/16 at 21:00; Stop 06/19/16 at 08:05 ; Status DC Propofol 200 mg 200 mg STK-MED ONCE IV ; Start 04/30/16 at 15:12; Stop 05/07/16 at 15:12; Status DC Parenteral Electrolytes (Normosol R Inj) 2,000 ml @ As Directed STK-MED ONCE IV ; Start 04/30/16 at 15:12; Stop 05/07/16 at 15:12; Status DC Potassium Chloride (KCl) 10 meq DAILY PO Last administered on 07/06/16 08:48; Start 05/10/16 at 09:30; Stop 07/08/16 at 09:34; Status DC Simethicone (Phazyme Chew) 125 mg DAILY PRN PO gas Last administered on 15:00; Start 05/11/16 at 15:00 Insulin Detemir (Levemir Inj) 35 units Q12HR SQ Last administered on 05/30/16 20:26; Start 05/13/16 at 21:00; Stop 06/05/16 at 22:00; Status DC Dextrose (D50w (Vial) Inj) 25 ml UNSCH PRN IV PUSH HYPOGLYCEMIA-SEE COMMENTS; Start 05/13/16 at 14:00; Stop 05/31/16 at 21:54; Status DC Glucagon (Glucagon Inj) 1 mg UNSCH PRN OTHER HYPOGLYCEMIA-SEE COMMENTS; Start 05/13/16 at 14:00; Stop 05/31/16 at 21:54; Status DC Insulin Human Regular (NovoLIN R SUPPLEMENTAL SCALE) 1 ACHS SLIDING SCALE SQ Last administered on 05/25/16 06:19; Start 05/13/16 at 16:00; Stop 05/25/16 at 12:14; Status DC Silver Sulfadiazine (Silvadene 1% Cream (400 Gm)) 1 applic DAILY TOPICAL Last administered on 07/09/16 07:56; Start 05/16/16 at 11:00 Pregabalin (Lyrica) 25 mg DAILY PO Last administered on 05/19/16 08:22; Start 05/17/16 at 11:45; Stop 05/20/16 at 10:29; Status DC Ipratropium [place] (Atrovent Neb) 0.5 mg Q2HR NEB PRN NEB wheezing Last administered on 05/27/16 00:28; Start 05/17/16 at 21:00 Diltiazem HCl (Cardizem) 30 mg ONCE ONCE PO Last administered on 05/17/16 22: 44; Start 05/17/16 at 22:45; Stop 05/17/16 at 22:46; Status DC Potassium Chloride (KCl) 40 meq ONCE ONCE PO Last administered on 05/17/16 22 :44; Start 05/17/16 at 22:45; Stop 05/17/16 at 22:46; Status DC Pregabalin (Lyrica) 50 mg DAILY PO Last administered on 06/18/16 08:33; Start 05/21/16 at 09:00; Stop 06/19/16 at 08:05; Status DC Baclofen (Lioresal) 10 mg Q12HR PO Last administered on 06/18/16 19:39; Start 05/24/16 at 10:45; Stop 06/19/16 at 08:05; Status DC Bumetanide (Bumetanide) 0.5 mg ONCE ONCE PO Last administered on 05/25/16 09: 21; Start 05/25/16 at 09:00; Stop 05/25/16 at 09:01; Status DC Miscellaneous (Pill Splitter) 1 ea UNSCH PRN OTHER SEE LABEL COMMENTS; Start at 10:45 Pantoprazole Sodium (Protonix) 40 mg DAILY PO Last administered on 07/09/16 07: 53; Start 05/26/16 at 09:00 Insulin Human Regular (NovoLIN R SUPPLEMENTAL SCALE) 1 Q12HR SQ Last administered on 05/26/16 22:40; Start 05/25/16 at 19:00; Stop 05/27/16 at 08:44 ; Status DC Metoclopramide HCl (Reglan) 10 mg Q8HR G-TUBE Last administered on 06/02/16 14: 43; Start 05/25/16 at 14:00; Stop 06/02/16 at 14:49; Status DC Albuterol Sulfate 2.5 mg 2.5 mg ONCE ONCE NEB Last administered on 05/27/16 00:45; Start 05/27/16 at 00:45; Stop 05/27/16 at 00:46; Status DC Sodium Chloride (NS 1000 ml Inj) 999 ml @ 0 mls/hr BOLUS ONCE IV Last administered on 05/27/16 02:01; Start 05/27/16 at 02:00; Stop 05/27/16 at 04:31 ; Status DC Adenosine (Adenocard Inj) 6 mg NOW ONCE IV PUSH Last administered on 02:01; Start 05/27/16 at 02:01; Stop 05/27/16 at 04:31; Status DC Adenosine (Adenocard Inj) 12 mg NOW ONCE IV PUSH Last administered on 02:11; Start 05/27/16 at 02:11; Stop 05/27/16 at 04:31; Status DC Insulin Human Regular 1 1 Q4HR SQ ; Start 05/27/16 at 12:00; Stop 05/28/16 at 01 :44; Status DC Sodium Chloride (NS 1000 ml Inj) 1,000 ml @ 100 mls/hr Q10H IV Last administered on 05/27/16 19:00; Start 05/27/16 at 09:00; Stop 05/28/16 at 04:59 ; Status DC Albuterol/ Ipratropium (Duoneb Neb) 1 ampule Q6HR NEB NEB Last administered on 05/31/16 07:29; Start 05/27/16 at 10:00; Stop 05/31/16 at 10:00; Status DC Insulin Human Regular (NovoLIN R SUPPLEMENTAL SCALE) 1 BID@07,15 SQ Last administered on 05/28/16 14:34; Start 05/28/16 at 07:00; Stop 05/31/16 at 21:53 ; Status DC Adenosine (Adenocard Inj) 6 mg STK-MED ONCE IV PUSH ; Start 05/27/16 at 05:00; Stop 05/28/16 at 12:54; Status DC Dextrose (D50w (Vial) Inj) 25 ml UNSCH PRN IV PUSH HYPOGLYCEMIA-SEE COMMENTS; Start 05/31/16 at 22:00 Glucagon (Glucagon Inj) 1 mg UNSCH PRN OTHER HYPOGLYCEMIA-SEE COMMENTS; Start 05/31/16 at 22:00; Stop 06/19/16 at 08:05; Status DC Insulin Aspart (NovoLOG SUPPLEMENTAL SCALE) 1 ACHS SLIDING SCALE SQ Last administered on 06/12/16 18:00; Start 06/01/16 at 07:00; Stop 06/22/16 at 16:52 ; Status DC Albuterol/ Ipratropium (Duoneb Neb) 1 ampule Q6HR NEB NEB Last administered on 06/06/16 08:29; Start 06/02/16 at 16:00; Stop 06/06/16 at 10:56; Status DC Albuterol/ Ipratropium (Duoneb Neb) 1 ampule Q2HR NEB PRN NEB dyspnea Last administered on 06/21/16 20:16; Start 06/02/16 at 15:00 Insulin Detemir 5 units 5 units HS SQ Last administered on 07/08/16 21:08; Start 06/06/16 at 21:00 Propofol (Diprivan 1000 Mg/100ml Inj) 100 ml @ As Directed STK-MED ONCE .ROUTE ; Start 06/12/16 at 15:40; Stop 06/12/16 at 15:41; Status DC Midazolam HCl (Versed Inj) 5 mg STK-MED ONCE .ROUTE ; Start 06/12/16 at 15:41; Stop 06/12/16 at 15:42; Status DC Chlorhexidine Gluconate 15 ml 15 ml BID@08,20 MT ; Start 06/12/16 at 20:00; Stop 06/12/16 at 20:00; Status DC Propofol 100 ml @ 0 mls/hr TITRATE IV Last administered on 06/13/16 17:09; Start 06/12/16 at 17:45; Stop 06/19/16 at 08:05; Status DC Fentanyl Citrate 250 ml @ 0 mls/hr TITRATE IV Last administered on 06/12/16 20 :08; Start 06/12/16 at 17:45; Stop 06/19/16 at 08:06; Status DC Levofloxacin/ Dextrose 150 ml @ 100 mls/hr Q24H IV Last administered on 13:05; Start 06/13/16 at 14:00; Stop 06/19/16 at 10:06; Status DC Sodium Chloride 1,000 ml @ 999 mls/hr BOLUS ONCE IV Last administered on 06/13 14:43; Start 06/13/16 at 13:30; Stop 06/13/16 at 14:30; Status DC Sodium Chloride 1,000 ml @ 999 mls/hr BOLUS ONCE IV Last administered on 06/13 14:43; Start 06/13/16 at 13:30; Stop 06/13/16 at 14:30; Status DC Potassium Chloride 10 meq/ Sodium Chloride 1,005 ml @ 75 mls/hr [id number] IV Last administered on 06/22/16 00:24; Start 06/13/16 at 15:00; Stop 06/22/16 at 18:02; Status DC Sodium Chloride 1,000 ml @ 0 mls/hr ONCE ONCE IV Last administered on 08:48; Start 06/15/16 at 07:30; Stop 06/15/16 at 07:31; Status DC Cefazolin Sodium/ Dextrose 50 ml @ 100 mls/hr Q8H IV Last administered on 4/14 /17at 12:48; Start 06/15/16 at 12:00; Stop 06/15/16 at 13:13; Status DC Vancomycin HCl 1500 mg/Sodium Chloride 515 ml @ 257.5 mls/ hr ONCE ONCE IV Last administered on 06/15/16 15:12; Start 06/15/16 at 14:00; Stop 06/15/16 at 15:59; Status DC Pharmacy Profile Note 0 ml @ 0 mls/hr UNSCH OTHER ; Start 06/15/16 at 13:00; Stop 06/19/16 at 10:06; Status DC Aztreonam 1000 mg/ Sodium Chloride 100 ml @ 200 mls/hr Q8H IV Last administered on 06/19/16 05:21; Start 06/15/16 at 13:00; Stop 06/19/16 at 10:06 ; Status DC Vancomycin HCl/ Sodium Chloride (Vancomycin Inj/ NS 500 ml Inj) 515 ml @ 257.5 mls/ hr Q12H IV Last administered on 06/17/16 02:49; Start 06/16/16 at 02:00; Stop 06/17/16 at 08:43; Status DC Miscellaneous Information SPECIFIC LAB TO BE DRAWN:VANCO TROUGH DATE TO BE DR... ONCE ONCE .XX Last administered on 06/17/16 01:45; Start 06/17/16 at 01 :45; Stop 06/17/16 at 01:46; Status DC Vancomycin HCl/ Sodium Chloride (Vancomycin Inj/ NS 500 ml Inj) 517.5 ml @ 257.5 mls/ hr Q12H IV Last administered on 06/19/16 03:33; Start 06/17/16 at 14:00; Stop 06/19/16 at 08:51; Status DC Miscellaneous Information SPECIFIC LAB TO BE DRAWN:VANCOMY... ONCE ONCE .XX Last administered on 06/19/16 02:04; Start 06/19/16 at 01:45; Stop 06/19/16 at 01:46; Status DC Miscellaneous Information D/C ICU ELECTROLYTE ORDERS... UNSCH PRN .XX SEE DOSE INSTRUCTIONS; Start 06/17/16 at 10:30; Status Cancel Miscellaneous Information ICU - CALL ORDERING PHYSIC... UNSCH PRN .XX SEE DOSE INSTRUCTIONS; Start 06/17/16 at 10:30; Status Cancel Potassium Chloride (KCl 40 Meq Premix Inj) 100 ml @ 25 mls/hr UNSCH PRN IV ELECTROLYTE REPLACEMENT Last administered on 06/17/16 17:40; Start 06/17/16 at 10:30; Stop 07/08/16 at 09:34; Status DC Potassium Bicarb/ Potassium Chloride 50 meq 50 meq UNSCH PRN PO ELECTROLYTE REPLACEMENT; Start 06/17/16 at 10:30; Status Cancel Potassium Chloride 100 ml @ 50 mls/hr UNSCH PRN IV ELECTROLYTE REPLACEMENT; Start 06/17/16 at 10:30; Status Cancel Magnesium Sulfate 4 gm/Sodium Chloride 108 ml @ 54 mls/hr UNSCH PRN IV ELECTROLYTE REPLACEMENT; Start 06/17/16 at 10:30; Status Cancel Magnesium Sulfate/ Sodium Chloride (Magnesium Sulfate Inj/NS Inj) 104 ml @ 52 mls/hr UNSCH PRN IV ELECTROLYTE REPLACEMENT; Start 06/17/16 at 10:30; Status Cancel Magnesium Oxide 800 mg 800 mg UNSCH PRN PO ELECTROLYTE REPLACEMENT; Start 06/17 at 10:30; Status Cancel Sodium Phosphate/ Sodium Chloride (Sodium Phosphate Inj/NS 250 ml Inj) 260 ml @ 43.333 mls/ hr UNSCH PRN IV ELECTROLYTE REPLACEMENT; Start 06/17/16 at 10:30 ; Status Cancel Potassium Phosphate 2000 mg 2,000 mg UNSCH PRN PO ELECTROLYTE REPLACEMENT; Start 06/17/16 at 10:30; Status Cancel Potassium Phosphate/Sodium Chloride (Potassium Phosphate Inj/NS 250 ml Inj) 260 ml @ 43.333 mls/ hr UNSCH PRN IV ELECTROLYTE REPLACEMENT; Start 06/17/16 at 10 :30; Status Cancel Baclofen (Lioresal) 5 mg Q12HR PO Last administered on 06/21/16 10:58; Start 06/19/16 at 09:00; Stop 06/21/16 at 13:25; Status DC Pregabalin (Lyrica) 150 mg DAILY PO Last administered on 06/21/16 10:58; Start 06/19/16 at 09:00; Stop 06/21/16 at 13:25; Status DC Tizanidine HCl (Zanaflex) 2 mg Q12HR PO Last administered on 06/21/16 10:58; Start 06/19/16 at 09:00; Stop 06/21/16 at 13:25; Status DC Oxycodone HCl 2.5 mg 2.5 mg Q6H PRN PO pain 1-7 Last administered on 06/24/16 13:00; Start 06/19/16 at 08:15; Stop 06/24/16 at 16:18; Status DC Vancomycin HCl/ Sodium Chloride (Vancomycin Inj/ NS 500 ml Inj) 520 ml @ 257.5 mls/ hr Q12H IV ; Start 06/19/16 at 14:00; Stop 06/19/16 at 14:00; Status DC Miscellaneous Information SPECIFIC LAB TO BE DRAWN:VANCOMYCIN TROUGH DATE TO... ONCE ONCE .XX ; Start 06/21/16 at 01:45; Stop 06/21/16 at 01:45; Status DC Cefepime HCl 2000 mg/Sodium Chloride 100 ml @ 200 mls/hr Q12H IV Last administered on 06/26/16 00:00; Start 06/19/16 at 12:00; Stop 06/26/16 at 10:31 ; Status DC Norepinephrine Bitartrate 250 ml @ As Directed STK-MED ONCE IV Last administered on 06/19/16 16:09; Start 06/19/16 at 13:51; Stop 06/19/16 at 13:52 ; Status DC Sodium Chloride 1,000 ml @ 0 mls/hr BOLUS STAT IV ; Start 06/19/16 at 17:58; Stop 06/19/16 at 17:59; Status DC Fluconazole/ Sodium Chloride 200 ml @ 100 mls/hr Q24H IV Last administered on 06/22/16 09:12; Start 06/20/16 at 11:00; Stop 06/22/16 at 14:07; Status DC Vancomycin HCl 1500 mg/Sodium Chloride 515 ml @ 257.5 mls/ hr ONCE ONCE IV ; Start 06/20/16 at 11:00; Stop 06/20/16 at 11:26; Status DC Pharmacy Profile Note 0 ml @ 0 mls/hr UNSCH OTHER ; Start 06/20/16 at 11:00; Stop 06/22/16 at 14:07; Status DC Vancomycin HCl/ Sodium Chloride (Vancomycin Inj/ NS 500 ml Inj) 520 ml @ 250 mls/hr Q12H IV Last administered on 06/22/16 11:46; Start 06/20/16 at 13:00; Stop 06/22/16 at 14:07; Status DC Miscellaneous Information SPECIFIC LAB TO BE DRAWN:VANCO TROUGH DATE TO... ONCE ONCE .XX Last administered on 06/22/16 00:45; Start 06/22/16 at 00:45; Stop 06/22/16 at 00:46; Status DC Baclofen (Lioresal) 5 mg DAILY PO Last administered on 07/09/16 07:53; Start at 09:00 Pregabalin (Lyrica) 75 mg Q12HR PO Last administered on 07/09/16 07:52; Start 06/22/16 at 09:00 Miscellaneous Information SPECIFIC LAB TO BE ISHAAN... ONCE ONCE .XX ; Start 06/23 at 12:45; Stop 06/23/16 at 12:45; Status DC Oxycodone HCl (Roxicodone) 2.5 mg Q4H PRN PO pain 1-6 Last administered on 12:30; Start 06/24/16 at 17:00 Polyethylene Glycol (Miralax) 17 gm BID PRN PO CONSTIPATION; Start 07/07/16 at 11:00 Date of Removal: Jun 29, 2016 A/P Assessment and Plan A/P Transaminitis. LFT improved. Abd pain, resolved Liver US shows fatty liver. Small stones or tumefactive sludge adherent to one of the gallbladder arcos. Splenomegaly. Avoid liver toxicity drugs. Hep panel negative Diabetes mellitus Currently on levemir 5 units HS. accu-check twice daily. Diabetic Neuropathy: patient c/o left leg tingling/pins and needle on the left leg and seem. continue Lyrica and Baclofen- PT ff Acute hypoxemic respiratory failure on T piece tolerates well [facility] History of staph aureus pneumonia/HCAP ARDS Currently on T-Piece, and tolerating well Pulm following. Trach collar with oxygen support to keep sat >92%. continue neb treatment. 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 Optifoam in place. Apply bacitracin. Wound cultures with normal sherine. Consult wound care, discussed with Nica from wound care, appreciate recommendations. Cleanse wound with NS and apply nonadhesive foam ag dressing over wound and change every other day and PRN for saturation or dislodgement. on silvadene cream daily Mild MR/TR. Monitor HR and BP keep MAP>65mmHg 2-D echo 03/26 EF 60%. No regional wall motion abnormality. Mild MR/TR. Hypokalemia-resolved Hypernatremia-resolved Hypophosphatemia-resolved Monitor renal function, and electrolytes periodically. Constipation-resolved Moderate protein calorie malnutrition Nausea and vomiting- resolved On tube feeding. Protonix 40mg daily On Reglan 10mg Q8, Senna and Colace twice a day. PEG tube placement- 3/2- tolerating TF Zofran 4 mg every 6 hours when necessary Likely SERENITY Toxic metabolic encephalopathy-resolved Continue with pain control. Seroquel 25mg BID initiated 3/3 Acetaminophen for fever Staph aureus pneumonia- PSAE,MSSA Possible staph bacteremia Finished course of abx- ID specialist signed off. Leukocytosis Monitor CBC/coags periodically. Morbid obesity BMI of 51.8 Weight loss encouraged. DVT, GI prophylaxis -Bilateral lower extremity SCDs. PEG Protonix 40 mg daily. Lovenox 40 mg sq BID Left shoulder pain- - limited range of motion- Xrays negative for dislocation. PT consulted. Discharge Planning needs SNF placement. dc planning in progress. Mg Stearns MD July 09, 2016 13:00
--- NOTE | 2016-07-09 15:44 | HHI.PR ---
Subjective Remarks respiratory failure DOING WELL , NOW ON T TUBE Objective Vital Signs Date Time Temp Pulse Resp B/P Pulse Ox O2 Delivery O2 Flow Rate FiO2 07/09/16 12:00 98.2 84 18 99/64 94 07/09/16 10:47 94 T-piece 5.00 28 07/09/16 08:40 Trach Collar 8.00 35 T-Piece 07/09/16 08:40 93 07/09/16 08:00 98.1 89 18 112/65 90 07/09/16 04:00 99.0 88 20 115/67 93 07/09/16 00:00 99.6 93 20 116/60 94 07/09/16 00:00 Trach Collar 6.00 35 T-Piece 07/08/16 21:35 95 T-piece 28 07/08/16 21:00 T-Piece 6.00 35 07/08/16 20:00 95 07/08/16 20:00 99.8 97 20 121/56 96 07/08/16 16:00 T-Piece 6.00 35 07/08/16 16:00 98.6 91 20 116/65 95 I/O 07/08/16 07/08/16 07/08/16 07/09/16 07/09/16 07/09/16 07:00 15:00 23:00 07:00 15:00 23:00 Intake Total 240 ml 2 ml 100 ml Output Total 500 ml 300 ml Balance -260 ml 2 ml -200 ml Intake Oral 240 ml 100 ml IV Total 2 ml Output Urine Total 500 ml 300 ml # Bowel Movements 0 Objective Remarks GENERAL: SKIN: Warm and dry.on vent support HEAD: Atraumatic. Normocephalic. EYES: Pupils equal and round. No scleral icterus. No injection or drainage. ENT: No nasal bleeding or discharge. Mucous membranes pink and moist. NECK: Trachea midline. No JVD. CARDIOVASCULAR: Regular rate and rhythm. RESPIRATORY: No accessory muscle use. Clear to auscultation. Breath sounds equal bilaterally. GASTROINTESTINAL: Abdomen soft, non-tender, nondistended. Hepatic and splenic margins not palpable. MUSCULOSKELETAL: Extremities without clubbing, cyanosis, or edema. No obvious deformities. NEUROLOGICAL: Awake and alert. No obvious cranial nerve deficits.right hemiplegia Assessment and Plan Assessment and Plan respiratory failure morbid obesity plan O2 NEEDED pulm toilet prognosis guarded Orlando Perry MD July 09, 2016 15:44
[2016-07-10] VITALS (7 sets, daily range): BP systolic 99–126; BP diastolic 53–76; PULSE 76–98; RESP 16–18; TEMP 98.1–99; O2SAT 92–96
[2016-07-10] MEDS: PREGABALIN 75 MG CAP PO SCH ×3 (00:06→21:33)
[2016-07-10] MEDS: INSULIN DETEMIR 100 UNITS/ML VIAL SQ SCH ×2 (00:09→21:35)
[2016-07-10] MEDS: NYSTATIN 100,000 U/GM PWD 15 GM BTL TOPICAL SCH ×3 (00:12→21:00)
[2016-07-10] MEDS: BETAMETHASONE/CLOTRIMAZOLE CREAM 15 GM TOPICAL SCH ×3 (00:12→21:00)
[2016-07-10] MEDS: ARTIFICIAL TEARS OPTH SOLN 15 ML BTL EACH EYE SCH ×7 (00:14→21:34)
[2016-07-10] MEDS: ENOXAPARIN SODIUM 40 MG/0.4 ML SYRINGE SQ SCH ×2 (06:27→17:08)
[2016-07-10] MEDS: DOCUSATE SODIUM 100 MG/10 ML UDC PO SCH ×2 (08:14→21:00)
[2016-07-10] MEDS: PANTOPRAZOLE SOD 40 MG DELAYED RELEASE TAB PO SCH (08:15)
[2016-07-10] MEDS: SODIUM CHLORIDE 0.9% FLUSH 5 ML FLUSH IVF SCH (08:15)
[2016-07-10] MEDS: BACLOFEN 10 MG TAB PO SCH (08:15)
[2016-07-10] MEDS: SILVER SULFADIAZINE 1% CR 400 GM JAR TOPICAL SCH (08:16)
[2016-07-10] MEDS: BENEPROTEIN POWDER 1 PACK G-TUBE SCH ×3 (08:17→17:08)
--- NOTE | 2016-07-10 12:09 | HHI.PR ---
Subjective Remarks Follow up for acute respiratory failure. The patient is currently on T-piece with O2 sat 94%. He denies any shortness of breath. He has an occasional cough. Denies fevers/chills. He has chronic left shoulder, foot, and back pain that is relieved by his pain medication. He is eating well. Had a BM this morning. He has no other medical complaints at this time. Objective Vitals Vital Signs Date Time Temp Pulse Resp B/P Pulse Ox O2 Delivery O2 Flow Rate FiO2 07/10/16 09:49 Trach Collar 4.00 28 T-Piece 07/10/16 09:13 94 T-piece 4.00 28 07/10/16 08:00 98.1 95 18 109/63 92 07/10/16 04:00 98.1 86 18 126/68 95 07/10/16 01:05 16 07/10/16 01:05 16 07/10/16 00:00 98.3 91 16 116/76 93 07/09/16 20:00 Trach Collar 8.00 35 T-Piece 07/09/16 20:00 98.2 93 16 93/49 95 07/09/16 20:00 93 07/09/16 16:00 98.6 88 18 88/64 97 07/09/16 12:00 98.2 84 18 99/64 94 I/O 07/09/16 07/09/16 07/09/16 07/10/16 07/10/16 07/10/16 07:00 15:00 23:00 07:00 15:00 23:00 Intake Total 100 ml 480 ml 240 ml 120 ml Output Total 300 ml 500 ml 400 ml 450 ml Balance -200 ml -20 ml -160 ml -330 ml Intake Oral 100 ml 480 ml 240 ml 120 ml Output Urine Total 300 ml 500 ml 400 ml 450 ml # Bowel Movements 0 0 0 Objective Remarks GENERAL: Well-nourished, well-developed obese middle aged male patient in NAD. SKIN: Warm and dry. No rash. HEENT: Normocephalic. Atraumatic. Pupils equal and round. No scleral icterus. No injection or drainage. Mucous membranes pink and moist. NECK: Supple. Trachea midline with T-piece in place. CARDIOVASCULAR: Regular rate and rhythm. S1, S2 noted. No murmur appreciated. RESPIRATORY: No accessory muscle use. Clear to auscultation. Breath sounds equal bilaterally. GASTROINTESTINAL: Abdomen soft, non-tender, nondistended. Normoactive bowel sounds x4. MUSCULOSKELETAL: No obvious deformities. Extremities without clubbing, cyanosis , or edema. NEUROLOGICAL: Awake and alert. No obvious cranial nerve deficits. Normal speech with Passy-Meka valve. PSYCHIATRIC: Appropriate mood and affect; insight and judgment normal. Procedures 04/30/16 - tracheostomy by Dr. Reyes 05/03/16 - EGD with PEG placement by Dr. Faith 06/09/16 - PEG removal 06/21/16- repeat tracheostomy by Dr. Cuellar Medications and IVs Current Medications Medications (Trade) Dose Ordered Sig/Chapis Route Start Time Stop Time Status Last Admin (NS Flush) 2 ml UNSCH PRN IVF 03/24/16 11:30 05/23/16 05:55 (Lotrisone Cream) 1 applic Q12HR TOPICAL 03/26/16 09:00 07/10/16 08:16 (Lovenox Inj) 40 mg Q12H SQ 03/26/16 18:00 07/10/16 06:27 (Beneprotein Powder) 1 pack TID G-TUBE 03/27/16 09:00 07/08/16 17:40 (Colace Liq) 100 mg Q12HR PO 03/29/16 09:00 07/10/16 08:14 (Tylenol 650 Mg/ 20 ml Liq) 650 mg Q6H PRN PO 03/30/16 15:45 06/23/16 21:37 (Glycerin Adult Supp) 2 gm BID PRN RECTAL 04/01/16 09:00 04/25/16 10:22 (NS Flush) DAILY IVF 04/03/16 09:00 07/10/16 08:15 (NS Flush) UNSCH PRN IVF 04/02/16 09:30 04/22/16 07:42 (Tears Naturale Opth Soln) 1 drop Q4H EACH EYE 04/21/16 18:00 07/10/16 08:16 (Mycostatin Powder) 1 applic Q12HR TOPICAL 04/27/16 11:00 07/10/16 08:16 (Zofran Inj) 4 mg Q6H PRN IV 05/05/16 06:45 (Phazyme Chew) 125 mg DAILY PRN PO 05/11/16 15:00 05/12/16 15:00 (Silvadene 1% Cream (400 Gm)) 1 applic DAILY TOPICAL 05/16/16 11:00 07/10/16 08:16 (Pill Splitter) 1 ea UNSCH PRN OTHER 05/24/16 10:45 (Protonix) 40 mg DAILY PO 05/26/16 09:00 07/10/16 08:15 (D50w (Vial) Inj) 25 ml UNSCH PRN IV PUSH 05/31/16 22:00 (Levemir Inj) 5 units HS SQ 06/06/16 21:00 07/10/16 00:09 (Lioresal) 5 mg DAILY PO 06/22/16 09:00 07/10/16 08:15 (Lyrica) 75 mg Q12HR PO 06/22/16 09:00 07/10/16 08:15 (Roxicodone) 2.5 mg Q4H PRN PO 06/24/16 17:00 07/10/16 00:05 (Miralax) 17 gm BID PRN PO 07/07/16 11:00 Urinary Catheter: No Date of Removal: Jun 29, 2016 A/P Problem List: (1) Acute hypercapnic respiratory failure ICD Code: J96.02 Status: Acute (2) Staphylococcus aureus pneumonia ICD Code: J15.211 Status: Acute (3) Encephalopathy ICD Code: G93.40 Status: Acute (4) JACOB (obstructive sleep apnea) ICD Code: G47.33 Status: Acute (5) Diabetes mellitus type 2 in obese ICD Code: E11.9 Status: Acute (6) Morbid obesity with BMI of 50.0-59.9, adult ICD Code: E66.01 Status: Acute (7) Obesity hypoventilation syndrome ICD Code: E66.2 Status: Acute Assessment and Plan Mr. Leger is a pleasant 50 year old male with a history of sleep apnea, morbid obesity, DM 2 who was admitted to the hospital on 03/24/2016 due to lightheadedness and dizziness. Initial work up indicated hypercarbia as well as hypoxemia. His O2 sat was 78% in the ED. CTA was negative for PE. He was started on BiPAP. However, due to unsatisfactory response, patient was intubated. Tracheostomy was done on 04/30/2016. Patient remained in the ICU until 05/07/2016. Patient went into acute respiratory failure again on 05/27/2016 and subsequently he was transferred back to ICU. Trach was exchanged on 2016 and he remained on mechanical ventilation. He was weaned off mechanical ventilation after tolerating CPAP trials. He was placed on T piece trial and tolerated that well. He was subsequently transferred to hospitalist service on . - Acute respiratory failure mixed - hypercarbic and hypoxemic. - Probable obstructive sleep apnea - Obesity hypoventilation syndrome. - s/p Tracheostomy placed 04/30, then exchanged to #6 Shiley fenestrated cuffed on 05/27/2016. - On T-piece, O2 sat stable, trach collar, keep O2 sat > 92% - Pulmonary following - Continue DuoNeb treatments. - Passy Moyock valve in place - Pneumonia with Staph Aureus - sputum cx positive for MSSA on 05/27/2016. 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 - Currently on Baclofen 5mg daily, Lyrica 75mg bid, with oxycodone 2.5mg po q4h prn pain - Patient now AAOx4. - Diabetes mellitus type 2 with neuropathy - HgbA1c 7.4 in . Goal glucose 140-180. - Continue Levemir 5 units QHS and gradually titrate up as needed. - Blood glucose well controlled - Continue Accu-cheks bid - continue Lyrica and Baclofen for neuropathy - Nutrition: s/p PEG tube placed initially on 05/03 by LIBBY Faith - 06/09-pt complains of irritation/drainage/discomfort at PEG insertion site, he is tolerating all meals and medications by mouth - PEG removed 06/09 by LIBBY Munson - Transaminitis: LFTs improved, abdominal pain resolved. - Liver US shows fatty liver. Small stones or tumefactive sludge adherent to one of the gallbladder arcos. Splenomegaly. - Avoid hepatotoxins - Hep panel negative - Wound on anterior neck 04/05 trach collar, stage III: Patient has a short and large neck. -Optifoam in place. -Apply bacitracin. -Wound cultures with normal sherine. -Consult wound care, discussed with Nica from wound care, Cleanse wound with NS and apply nonadhesive foam ag dressing over wound and change every other day and PRN for saturation or dislodgement. on silvadene cream daily. - Morbid Obesity with BMI 51.8 on admission -encouraged weight loss - Left Shoulder Pain: with decreased ROM. Xrays negative for fracture/ dislocations. - continue PT - continue pain control with oxycodone 2.5mg po q4h prn - Placement efforts in progress. Case management assisting. Full code. Lovenox. Discharge Planning Case management to assist with discharge planning. Needs placement. Attending Statement patient was seen today. in no acute distress. no new complaints. clinically no change. continue with current care. Jody Jose PA-C July 10, 2016 12:09 Mg Stearns MD July 10, 2016 12:15
--- NOTE | 2016-07-10 17:27 | HHI.PR ---
Subjective Remarks respiratory failure DOING WELL , NOW ON T TUBE Objective Vital Signs Date Time Temp Pulse Resp B/P Pulse Ox O2 Delivery O2 Flow Rate FiO2 07/10/16 16:00 99.0 98 18 109/53 94 07/10/16 12:00 98.7 93 18 99/58 96 07/10/16 09:49 Trach Collar 4.00 28 T-Piece 07/10/16 09:13 94 T-piece 4.00 28 07/10/16 08:00 98.1 95 18 109/63 92 07/10/16 04:00 98.1 86 18 126/68 95 07/10/16 01:05 16 07/10/16 01:05 16 07/10/16 00:00 98.3 91 16 116/76 93 07/09/16 20:00 Trach Collar 8.00 35 T-Piece 07/09/16 20:00 98.2 93 16 93/49 95 07/09/16 20:00 93 I/O 07/09/16 07/09/16 07/09/16 07/10/16 07/10/16 07/10/16 07:00 15:00 23:00 07:00 15:00 23:00 Intake Total 100 ml 480 ml 240 ml 120 ml 720 ml Output Total 300 ml 500 ml 400 ml 450 ml 600 ml Balance -200 ml -20 ml -160 ml -330 ml 120 ml Intake Oral 100 ml 480 ml 240 ml 120 ml 720 ml Output Urine Total 300 ml 500 ml 400 ml 450 ml 600 ml # Bowel Movements 0 0 0 2 Objective Remarks GENERAL: SKIN: Warm and dry.on vent support HEAD: Atraumatic. Normocephalic. EYES: Pupils equal and round. No scleral icterus. No injection or drainage. ENT: No nasal bleeding or discharge. Mucous membranes pink and moist. NECK: Trachea midline. No JVD. CARDIOVASCULAR: Regular rate and rhythm. RESPIRATORY: No accessory muscle use. Clear to auscultation. Breath sounds equal bilaterally. GASTROINTESTINAL: Abdomen soft, non-tender, nondistended. Hepatic and splenic margins not palpable. MUSCULOSKELETAL: Extremities without clubbing, cyanosis, or edema. No obvious deformities. NEUROLOGICAL: Awake and alert. No obvious cranial nerve deficits.right hemiplegia Assessment and Plan Assessment and Plan respiratory failure morbid obesity plan O2 NEEDED pulm toilet prognosis guarded Orlando Perry MD July 10, 2016 17:27
[2016-07-11] VITALS (9 sets, daily range): BP systolic 108–121; BP diastolic 57–75; PULSE 84–102; RESP 18–20; TEMP 97.9–99.1; O2SAT 92–97
[2016-07-11] MEDS: ARTIFICIAL TEARS OPTH SOLN 15 ML BTL EACH EYE SCH ×6 (02:00→20:28)
[2016-07-11] MEDS: ENOXAPARIN SODIUM 40 MG/0.4 ML SYRINGE SQ SCH ×2 (05:05→17:30)
[2016-07-11] MEDS: PREGABALIN 75 MG CAP PO SCH ×2 (08:27→20:28)
[2016-07-11] MEDS: PANTOPRAZOLE SOD 40 MG DELAYED RELEASE TAB PO SCH (08:27)
[2016-07-11] MEDS: BACLOFEN 10 MG TAB PO SCH (08:28)
[2016-07-11] MEDS: SODIUM CHLORIDE 0.9% FLUSH 5 ML FLUSH IVF SCH (08:28)
[2016-07-11] MEDS: NYSTATIN 100,000 U/GM PWD 15 GM BTL TOPICAL SCH ×2 (08:28→20:28)
[2016-07-11] MEDS: BENEPROTEIN POWDER 1 PACK G-TUBE SCH ×3 (08:28→17:30)
[2016-07-11] MEDS: BETAMETHASONE/CLOTRIMAZOLE CREAM 15 GM TOPICAL SCH ×2 (08:28→20:27)
[2016-07-11] MEDS: SILVER SULFADIAZINE 1% CR 400 GM JAR TOPICAL SCH (08:28)
[2016-07-11] MEDS: DOCUSATE SODIUM 100 MG/10 ML UDC PO SCH ×2 (08:30→20:27)
--- NOTE | 2016-07-11 10:29 | HHI.PR ---
Subjective Remarks in no acute distress. no new complaints. clinically with no change. Objective Vitals Vital Signs Date Time Temp Pulse Resp B/P Pulse Ox O2 Delivery O2 Flow Rate FiO2 07/11/16 08:46 Trach Collar 4.00 28 T-Piece 07/11/16 08:00 97.9 96 20 117/64 07/11/16 04:00 98.4 84 18 108/57 95 07/11/16 00:00 98.5 92 18 119/69 97 07/10/16 20:00 Trach Collar 4.00 T-Piece 07/10/16 20:00 98.2 76 16 110/59 96 07/10/16 16:00 99.0 98 18 109/53 94 07/10/16 12:00 98.7 93 18 99/58 96 I/O 07/10/16 07/10/16 07/10/16 07/11/16 07/11/16 07/11/16 07:00 15:00 23:00 07:00 15:00 23:00 Intake Total 120 ml 720 ml 360 ml Output Total 450 ml 600 ml 200 ml Balance -330 ml 120 ml 160 ml Intake Oral 120 ml 720 ml 360 ml Output Urine Total 450 ml 600 ml 200 ml # Bowel Movements 0 2 0 Imaging Last Impressions Chest X-Ray 06/30/16 0600 Signed Impressions: Service Date/Time: Thursday, June 30, 2016 06:07 - CONCLUSION: No significant change. Mild bilateral perihilar and basilar consolidation again noted. Ubaldo Ortiz MD Shoulder X-Ray 06/28/16 0000 Signed Impressions: Service Date/Time: June 15:12 - CONCLUSION: 1. Limited but negative examination of the shoulder. Kyaw Rojo MD Abdomen X-Ray 06/19/16 0000 Signed Impressions: Service Date/Time: Sunday, June 19, 2016 10:43 - CONCLUSION: Gastric tube tip does not cross the diaphragm and the side port is approximately 8 cm above the diaphragm. Chano Goodwin MD Lower Extremity Ultrasound 06/04/16 0000 Signed Impressions: Service Date/Time: Saturday, June 04, 2016 14:54 - CONCLUSION: 1. No DVT identified. Dc Barton MD Liver Ultrasound 05/09/16 0000 Signed Impressions: Service Date/Time: Monday, May 09, 2016 22:28 - CONCLUSION: 1. Enlarged, fatty liver. 2. Small stones or tumefactive sludge adherent to one of the gallbladder arcos. 3. Splenomegaly. 4. Pancreas is obscured by overlying bowel gas and patient's body habitus. Arthur Kennedy MD Chest CT 03/28/16 0836 Signed Impressions: Service Date/Time: Monday, March 28, 2016 09:57 - CONCLUSION: Development areas of air bronchograms and consolidation more prominent in the right and left posterior basilar segments of the lower lobes. ET tube above the chanelle. Bernard Hartman MD CT Angiography 03/24/16 1121 Signed Impressions: Service Date/Time: Thursday, March 24, 2016 12:47 - CONCLUSION: 1. There is respiratory motion artifact but no PE is identified through most of the segmental level pulmonary arteries. 2. Mildly enlarged main pulmonary artery may indicate pulmonary arterial hypertension. 3. 11 mm left lower lobe noncalcified pulmonary nodule. Suggest correlation with any prior imaging studies that could confirm longer-term stability. If none are available consider short-term followup noncontrast chest CT in approximately 3 months. Ubaldo Rodsa MD Objective Remarks GENERAL: in no apparent distress. Neck; trach in place CARDIOVASCULAR: Regular rate and regular rhythm without murmurs, gallops, or rubs. RESPIRATORY: Clear to auscultation. Breath sounds equal bilaterally. No wheezes , rales, or rhonchi. GASTROINTESTINAL: Abdomen soft, non-tender, nondistended. Normal, active bowel sounds MUSCULOSKELETAL: Extremities without clubbing, cyanosis, or edema. NEURO: Alert & Oriented x4 to person, place, time, situation. Moves all ext x4 Procedures 04/30/16 - tracheostomy by Dr. Reyes 05/03/16 - EGD with PEG placement by Dr. Faith 06/09/16 - PEG removal 06/21/16- repeat tracheostomy by Dr. Cuellar Medications and IVs Current Medications IV Flush (NS Flush) 2 ml UNSCH PRN IVF FLUSH AFTER USING IV ACCESS Last administered on 05/23/16 05:55; Start 03/24/16 at 11:30 Iohexol (Omnipaque 350 Inj) 89 ml STK-MED ONCE IV Last administered on t 13:08; Start 03/24/16 at 13:08; Stop 03/24/16 at 13:09; Status DC Albuterol/ Ipratropium (Duoneb Neb) 1 ampule Q6HR NEB NEB Last administered on 04/04/16 07:42; Start 03/24/16 at 17:00; Stop 04/04/16 at 07:43; Status DC Dextrose (D50w (Vial) Inj) 25 ml UNSCH PRN IV PUSH HYPOGLYCEMIA-SEE COMMENTS; Start 03/24/16 at 16:30; Stop 03/31/16 at 11:22; Status DC Glucagon (Glucagon Inj) 1 mg UNSCH PRN OTHER HYPOGLYCEMIA-SEE COMMENTS; Start 03/24/16 at 16:30; Stop 03/31/16 at 11:22; Status DC Insulin Human Regular (NovoLIN R SUPPLEMENTAL SCALE) 1 ACHS SLIDING SCALE SQ Last administered on 03/31/16 06:09; Start 03/24/16 at 21:00; Stop 03/31/16 at 11:16; Status DC Albuterol/ Ipratropium (Duoneb Neb) 1 ampule Q2HR NEB PRN NEB WHEEZING AND SOB Last administered on 04/20/16 08:10; Start 03/24/16 at 16:45; Stop 04/23/16 at 13:22; Status DC Enoxaparin Sodium (Lovenox Inj) 40 mg Q24H SQ Last administered on 03/25/16 17 :00; Start 03/24/16 at 17:00; Stop 03/26/16 at 16:40; Status DC Pantoprazole Sodium (Protonix) 40 mg DAILY PO Last administered on 03/26/16 08 :35; Start 03/25/16 at 09:00; Stop 03/26/16 at 16:40; Status DC Influenza Virus Vaccine (Flu (Quadrivalent) Vaccine Inj) 0.5 ml ONCE ONCE IM Last administered on 03/25/16 08:57; Start 03/25/16 at 10:00; Stop 03/25/16 at 10:01; Status DC Chlorhexidine Gluconate (Chlorhexidine 2% Cloth) 3 pack DAILY@04 TOP Last administered on 03/29/16 03:42; Start 03/25/16 at 04:00; Stop 03/29/16 at 04:01 ; Status DC Chlorhexidine Gluconate (Chlorhexidine 2% Cloth) 3 pack UNSCH PRN TOP HYGIENIC CARE; Start 03/24/16 at 19:15; Stop 03/29/16 at 19:07; Status DC Tiotropium [place] (Spiriva Inh) 18 mcg DAILY INH Last administered on 08:36; Start 03/25/16 at 13:45; Stop 05/05/16 at 13:25; Status DC Metformin HCl (Glucophage) 500 mg BIDPC PO Last administered on 03/28/16 08:18 ; Start 03/26/16 at 09:00; Stop 04/07/16 at 10:16; Status DC Betamethasone/ Clotrimazole (Lotrisone Cream) 1 applic Q12HR TOPICAL Last administered on 07/11/16 08:28; Start 03/26/16 at 09:00 Methylprednisolone Sodium Succinate 60 mg 60 mg Q12HR IV PUSH Last administered on 03/28/16 08:17; Start 03/26/16 at 13:30; Stop 03/28/16 at 10:25 ; Status DC Propofol (Diprivan 1000 Mg/100ml Inj) 100 ml @ As Directed STK-MED ONCE .ROUTE ; Start 03/26/16 at 13:16; Stop 03/26/16 at 13:17; Status DC Etomidate 40 mg 40 mg STK-MED ONCE .ROUTE ; Start 03/26/16 at 13:20; Stop at 13:21; Status DC Propofol 100 ml @ 0 mls/hr TITRATE IV Last administered on 04/15/16 06:35; Start 03/26/16 at 14:30; Stop 05/02/16 at 08:34; Status DC Fentanyl Citrate (fentaNYL DRIP) 250 ml @ 0 mls/hr TITRATE IV Last administered on 05/02/16 15:59; Start 03/26/16 at 14:30; Stop 05/02/16 at 19:46; Status DC Rocuronium [place] (Zemuron Inj) 50 mg STK-MED ONCE .ROUTE ; Start 03/26/16 at 15:38; Stop 03/26/16 at 15:39; Status DC Rocuronium [place] (Zemuron Inj) 50 mg STK-MED ONCE .ROUTE ; Start 03/26/16 at 15:40; Stop 03/26/16 at 15:41; Status DC Furosemide (Lasix Inj) 40 mg ONCE ONCE IV PUSH Last administered on 03/26/16 18:00; Start 03/26/16 at 16:45; Stop 03/26/16 at 17:08; Status DC Furosemide (Lasix Inj) 20 mg BID@09,18 IV PUSH Last administered on 03/29/16 08:06; Start 03/26/16 at 18:00; Stop 03/29/16 at 08:43; Status DC Pantoprazole Sodium (Protonix Inj) 40 mg Q24H IV PUSH Last administered on 05/24 18:00; Start 03/26/16 at 18:00; Stop 05/25/16 at 12:09; Status DC Enoxaparin Sodium 40 mg 40 mg Q12H SQ Last administered on 07/11/16 05:05; Start 03/26/16 at 18:00 Aztreonam 2000 mg/ Sodium Chloride 100 ml @ 200 mls/hr Q8H IV Last administered on 03/31/16 10:23; Start 03/26/16 at 18:00; Stop 03/31/16 at 13:55 ; Status DC Potassium Chloride 100 ml @ 50 mls/hr Q2H PRN IV For Potassium 2.8 - 3.2 mEq/ L Last administered on 05/03/16 23:31; Start 03/26/16 at 16:45; Stop 05/17/16 at 17:12; Status DC Potassium Chloride (KCl 20 Meq Premix Inj) 100 ml @ 50 mls/hr Q2H PRN IV For Potassium 2.8 - 3.2 mEq/L Last administered on 05/07/16 23:26; Start 03/26/16 at 16:45; Stop 05/17/16 at 17:12; Status DC Potassium Chloride 40 meq 40 meq UNSCH PRN PO/TUBE For Potassium 3.3 - 3.5 mEq/ L Last administered on 05/17/16 09:28; Start 03/26/16 at 16:45; Stop 05/17/16 at 17:12; Status DC Potassium Chloride 100 ml @ 25 mls/hr UNSCH PRN IV For Potassium 3.3 - 3.5 mEq /L Last administered on 04/20/16 09:17; Start 03/26/16 at 16:45; Stop 05/17/16 at 17:12; Status DC Potassium Chloride 100 ml @ 50 mls/hr Q2H PRN IV For Potassium 3.3 - 3.5 mEq/ L Last administered on 05/08/16 11:22; Start 03/26/16 at 16:45; Stop 05/17/16 at 17:12; Status DC Magnesium Sulfate/ Sodium Chloride (Magnesium Sulfate Inj/NS Inj) 100 ml @ 50 mls/hr UNSCH PRN IV For Magnesium 0.9 - 1.1 mg/dL; Start 03/26/16 at 16:45; Stop 05/17/16 at 17:12; Status DC Magnesium Oxide 800 mg 800 mg UNSCH PRN PO For Magnesium 1.2 - 1.6 mg/dL; Start 03/26/16 at 16:45; Stop 05/17/16 at 17:12; Status DC Magnesium Sulfate/ Sodium Chloride (Magnesium Sulfate Inj/NS Inj) 100 ml @ 50 mls/hr UNSCH PRN IV For Magnesium 1.2 - 1.6 mg/dL; Start 03/26/16 at 16:45; Stop 05/17/16 at 17:12; Status DC Potassium Phosphate 2000 mg 2,000 mg Q4H PRN PO For Phosphorus < 2.5 mg/dL Last administered on 04/01/16 05:08; Start 03/26/16 at 16:45; Stop 05/17/16 at 17:12; Status DC Sodium Phosphate/ Sodium Chloride (Sodium Phosphate Inj/NS 250 ml Inj) 250 ml @ 42 mls/hr UNSCH PRN IV For Phosphorus < 2.5 mg/dL Last administered on 14:19; Start 03/26/16 at 16:45; Stop 05/17/16 at 17:12; Status DC Potassium Chloride (KCl 40 Meq/30 ml Liq) 40 meq UNSCH PRN PO/TUBE SEE LABEL COMMENTS; Start 03/26/16 at 16:45; Stop 05/17/16 at 17:12; Status DC Potassium Phosphate 2000 mg 2,000 mg UNSCH PRN PO/TUBE SEE LABEL COMMENTS; Start 03/26/16 at 16:45; Stop 05/17/16 at 17:12; Status DC Potassium Phosphate/Sodium Chloride (Potassium Phosphate Inj/NS 250 ml Inj) 260 ml @ 42 mls/hr UNSCH PRN IV SEE LABEL COMMENTS Last administered on 05/03/16 08:23; Start 03/26/16 at 16:45; Stop 05/17/16 at 17:12; Status DC Potassium Chloride 40 meq 40 meq DAILY PO Last administered on 04/01/16 09:18 ; Start 03/26/16 at 18:00; Stop 04/02/16 at 07:20; Status DC Metronidazole (Flagyl 500 Mg Inj) 100 ml @ 100 mls/hr Q8H IV Last administered on 04/10/16 07:44; Start 03/27/16 at 08:00; Stop 04/10/16 at 13:30; Status DC Protein 1 pack 1 pack TID G-TUBE Last administered on 07/08/16 17:40; Start at 09:00 Vancomycin HCl 1500 mg/Sodium Chloride 515 ml @ 257.5 mls/ hr ONCE ONCE IV Last administered on 03/27/16 10:21; Start 03/27/16 at 09:00; Stop 03/27/16 at 10:59; Status DC Pharmacy Profile Note 0 ml @ 0 mls/hr UNSCH OTHER ; Start 03/27/16 at 08:00; Stop 03/31/16 at 13:55; Status DC Vancomycin HCl/ Sodium Chloride (Vancomycin Inj/ NS 500 ml Inj) 520 ml @ 260 mls/hr Q24H IV Last administered on 03/30/16 04:04; Start 03/28/16 at 04:00; Stop 03/30/16 at 11:11; Status DC Miscellaneous Information SPECIFIC LAB TO BE ISHAAN... ONCE ONCE XX Last administered on 03/30/16 03:45; Start 03/30/16 at 03:45; Stop 03/30/16 at 03:46 ; Status DC Insulin Detemir 5 units 5 units Q12HR SQ Last administered on 03/31/16 21:17; Start 03/28/16 at 11:00; Stop 04/01/16 at 08:57; Status DC Pharmacy Profile Note (Vancomycin Consult Pharmacy) 0 ml @ 0 mls/hr UNSCH OTHER ; Start 03/28/16 at 10:15; Status UNV Methylprednisolone Sodium Succinate (SoluMEDROL INJ) 40 mg Q12HR IV PUSH Last administered on 04/17/16 07:26; Start 03/28/16 at 21:00; Stop 04/17/16 at 09:03 ; Status DC Docusate Sodium (Colace Liq) 100 mg Q12HR PO Last administered on 07/10/16 08: 14; Start 03/29/16 at 09:00 Sennosides (Senna Liq) 8.8 mg DAILY PO Last administered on 03/31/16 08:40; Start 03/29/16 at 09:00; Stop 04/01/16 at 08:57; Status DC Furosemide (Lasix Inj) 40 mg BID@,18 IV PUSH ; Start 03/29/16 at 18:00; Stop 03/29/16 at 18:00; Status DC Furosemide 40 mg 40 mg BID@09,18 IV PUSH Last administered on 04/01/16 17:37; Start 03/29/16 at 09:00; Stop 04/02/16 at 07:14; Status DC Vancomycin HCl/ Sodium Chloride (Vancomycin Inj/ NS 500 ml Inj) 517.5 ml @ 250 mls/hr Q12H IV Last administered on 03/31/16 03:19; Start 03/30/16 at 16:00; Stop 03/31/16 at 13:55; Status DC Miscellaneous Information SPECIFIC LAB TO BE ISHAAN... ONCE ONCE XX Last administered on 03/31/16 15:41; Start 03/31/16 at 15:45; Stop 03/31/16 at 15:46 ; Status DC Acetaminophen (Tylenol 650 Mg/ 20 ml Liq) 650 mg Q6H PRN PO fever or pain 1-5 Last administered on 06/23/16 21:37; Start 03/30/16 at 15:45 Bumetanide (Bumex Inj) 1 mg ONCE ONCE IV PUSH ; Start 03/31/16 at 09:30; Stop 03/31/16 at 10:40; Status DC Dextrose (D50w (Vial) Inj) 25 ml UNSCH PRN IV PUSH HYPOGLYCEMIA-SEE COMMENTS; Start 03/31/16 at 11:15; Stop 04/03/16 at 17:53; Status DC Glucagon (Glucagon Inj) 1 mg UNSCH PRN OTHER HYPOGLYCEMIA-SEE COMMENTS; Start 03/31/16 at 11:15; Stop 04/07/16 at 10:46; Status DC Insulin Human Regular 1 1 Q6H SQ Last administered on 04/03/16 17:48; Start at 12:00; Stop 04/03/16 at 17:54; Status DC Levofloxacin/ Dextrose 150 ml @ 100 mls/hr Q24H IV Last administered on 14:07; Start 03/31/16 at 14:00; Stop 04/16/16 at 09:51; Status DC Fluconazole/ Sodium Chloride 200 ml @ 100 mls/hr Q24H IV Last administered on 04/09/16 15:48; Start 03/31/16 at 16:00; Stop 04/10/16 at 13:31; Status DC Linezolid 300 ml @ 300 mls/hr Q12H IV Last administered on 04/04/16 02:45; Start 03/31/16 at 15:00; Stop 04/04/16 at 09:59; Status DC Cisatracurium Besylate 100 mg/ Sodium Chloride 250 ml @ 0 mls/hr TITRATE IV Last administered on 04/14/16 11:39; Start 04/01/16 at 09:00; Stop 04/15/16 at 09:02; Status DC Epoprostenol Sodium/Sodium Chloride (Flolan (30,000 Ng/ml) Neb/NS Inj) 100 ml @ 8 mls/hr Q8H NEB Last administered on 04/15/16 02:32; Start 04/01/16 at 10:00 ; Stop 04/15/16 at 09:02; Status DC Insulin Detemir (Levemir Inj) 15 units Q12HR SQ Last administered on 04/01/16 20:13; Start 04/01/16 at 09:00; Stop 04/02/16 at 07:14; Status DC Sennosides (Senna Liq) 8.8 mg BID PO/TUBE Last administered on 06/26/16 09:07 ; Start 04/01/16 at 09:00; Stop 07/07/16 at 10:55; Status DC Polyethylene Glycol (Miralax) 17 gm BID PO Last administered on 04/03/16 21:14 ; Start 04/01/16 at 09:00; Stop 04/23/16 at 13:31; Status DC Lactulose (Lactulose Liq) 30 ml QID PO Last administered on 04/01/16 20:13; Start 04/01/16 at 09:00; Stop 04/02/16 at 07:14; Status DC Methylnaltrexone [place] (Relistor Inj) 12 mg ONCE ONCE SQ Last administered on 04/01/16 11:44; Start 04/01/16 at 10:30; Stop 04/01/16 at 10:31; Status DC Metoclopramide HCl (Reglan Inj) 5 mg Q8HR IV PUSH Last administered on 05:42; Start 04/01/16 at 14:00; Stop 04/11/16 at 09:15; Status DC Glycerin (Glycerin Adult Supp) 2 gm BID PRN RECTAL CONSTIPATION Last administered on 04/25/16 10:22; Start 04/01/16 at 09:00 Glycerin (Glycerin Adult Supp) 2 gm ONCE ONCE RECTAL Last administered on 04/01 10:52; Start 04/01/16 at 09:30; Stop 04/01/16 at 09:31; Status DC Mineral Oil (Mineral Oil Liq) 15 ml ONCE ONCE PO Last administered on 10:00; Start 04/01/16 at 10:00; Stop 04/01/16 at 10:01; Status DC Chlorhexidine Gluconate 15 ml 15 ml BID@08,20 MT Last administered on 07/02/16 20:00; Start 04/01/16 at 20:00; Stop 07/07/16 at 10:56; Status DC Midazolam HCl 100 ml @ 0 mls/hr TITRATE IV Last administered on 05/01/16 14:25 ; Start 04/01/16 at 11:45; Stop 05/02/16 at 08:35; Status DC Norepinephrine Bitartrate (Levophed-Dextrose Drip) 250 ml @ 0 mls/hr TITRATE IV Last administered on 04/01/16 21:15; Start 04/01/16 at 20:30; Stop 04/07/16 at 10:10; Status DC Furosemide (Lasix Inj) 20 mg BID@09,18 IV PUSH Last administered on 04/03/16 08:17; Start 04/02/16 at 09:00; Stop 04/03/16 at 12:58; Status DC Insulin Detemir (Levemir Inj) 25 units Q12HR SQ Last administered on 04/03/16 08:17; Start 04/02/16 at 09:00; Stop 04/03/16 at 12:48; Status DC IV Flush (NS Flush) DAILY IVF Last administered on 07/11/16 08:28; Start at 09:00 IV Flush (NS Flush) UNSCH PRN IVF SEE PROTOCOL Last administered on 04/22/16 07:42; Start 04/02/16 at 09:30 Artificial Tears (Lacrilube Opht Oint) 1 applic Q12HR EACH EYE Last administered on 06/02/16 08:46; Start 04/02/16 at 12:00; Stop 06/02/16 at 14:00; Status DC Lactobacillus Acidophilus (Lactinex) 1 tab TID PO Last administered on 12:40; Start 04/03/16 at 13:00; Stop 07/07/16 at 13:12; Status DC Insulin Detemir (Levemir Inj) 40 units Q12HR SQ ; Start 04/03/16 at 21:00; Stop 04/03/16 at 21:00; Status DC Insulin Human NPH 15 units 15 units ONCE ONCE SQ Last administered on 13:08; Start 04/03/16 at 13:00; Stop 04/03/16 at 13:01; Status DC Sodium Chloride (NS 1000 ml Inj) 1,000 ml @ 999 mls/hr BOLUS ONCE IV Last administered on 04/03/16 13:10; Start 04/03/16 at 13:00; Stop 04/03/16 at 14:00 ; Status DC Sodium Polystyrene Sulfonate 15 gm 15 gm ONCE ONCE PO Last administered on 13:22; Start 04/03/16 at 13:00; Stop 04/03/16 at 13:08; Status DC Insulin Human Regular/Sodium Chloride (NovoLIN R (IV INFUSION)/NS Inj) 100 ml @ 0 mls/hr TITRATE IV Last administered on 04/03/16 22:44; Start 04/03/16 at 18: 00; Stop 04/04/16 at 09:12; Status DC Dextrose (D50w (Vial) Inj) 25 ml UNSCH PRN IV PUSH SEE LABEL COMMENTS; Start at 17:45; Stop 04/04/16 at 09:14; Status DC Miscellaneous Information 1 ONCE ONCE XX Last administered on 04/03/16 20:27 ; Start 04/03/16 at 17:45; Stop 04/03/16 at 17:52; Status DC Albuterol/ Ipratropium (Duoneb Neb) 1 ampule Q4HR NEB NEB Last administered on 04/08/16 03:48; Start 04/04/16 at 08:00; Stop 04/08/16 at 08:00; Status DC Furosemide 20 mg 20 mg BID@09,18 IV PUSH Last administered on 04/15/16 08:12; Start 04/04/16 at 09:00; Stop 04/15/16 at 09:53; Status DC Insulin Human Regular/Sodium Chloride (NovoLIN R (IV INFUSION)/NS Inj) 100 ml @ 0 mls/hr TITRATE IV Last administered on 04/07/16 04:33; Start 04/04/16 at 09:00 ; Stop 04/07/16 at 10:11; Status DC Dextrose (D50w (Vial) Inj) 25 ml UNSCH PRN IV PUSH SEE LABEL COMMENTS; Start at 09:00; Stop 04/07/16 at 10:46; Status DC Miscellaneous Information 1 ONCE ONCE XX Last administered on 04/04/16 10:00; Start 04/04/16 at 10:00; Stop 04/04/16 at 10:01; Status DC Insulin Detemir (Levemir Inj) 60 units Q12HR SQ Last administered on 04/07/16 07:41; Start 04/05/16 at 11:00; Stop 04/08/16 at 08:14; Status DC Dextrose (D50w (Vial) Inj) 25 ml UNSCH PRN IV PUSH HYPOGLYCEMIA-SEE COMMENTS; Start 04/07/16 at 10:15; Stop 04/07/16 at 17:03; Status DC Glucagon (Glucagon Inj) 1 mg UNSCH PRN OTHER HYPOGLYCEMIA-SEE COMMENTS; Start 04/07/16 at 10:15; Stop 04/07/16 at 17:03; Status DC Insulin Human Regular (NovoLIN R SUPPLEMENTAL SCALE) 1 Q6H SQ Last administered on 04/07/16 10:56; Start 04/07/16 at 11:00; Stop 04/07/16 at 17:01; Status DC Insulin Detemir (Levemir Inj) 20 units Q12HR SQ Last administered on 04/08/16 07:26; Start 04/07/16 at 21:00; Stop 04/08/16 at 08:14; Status DC Dextrose (D50w (Vial) Inj) 25 ml UNSCH PRN IV PUSH HYPOGLYCEMIA-SEE COMMENTS; Start 04/07/16 at 17:00; Stop 05/13/16 at 13:50; Status DC Glucagon (Glucagon Inj) 1 mg UNSCH PRN OTHER HYPOGLYCEMIA-SEE COMMENTS; Start 04/07/16 at 17:00; Stop 05/13/16 at 13:50; Status DC Insulin Human Regular (NovoLIN R SUPPLEMENTAL SCALE) 1 Q6H SQ Last administered on 05/11/16 17:08; Start 04/07/16 at 18:00; Stop 05/13/16 at 13:50 ; Status DC Insulin Detemir 24 units 24 units Q12HR SQ Last administered on 04/09/16 07:37 ; Start 04/08/16 at 21:00; Stop 04/09/16 at 10:01; Status DC Vancomycin HCl 1750 mg/Sodium Chloride 517.5 ml @ 258.75 mls/ hr ONCE ONCE IV Last administered on 04/08/16 14:42; Start 04/08/16 at 13:00; Stop 04/08/16 at 14:59; Status DC Sodium Chloride (NS 500 ml Inj) 500 ml @ 500 mls/hr BOLUS ONCE IV Last administered on 04/08/16 17:20; Start 04/08/16 at 17:15; Stop 04/08/16 at 18:14; Status DC Insulin Detemir 30 units 30 units Q12HR SQ Last administered on 04/10/16 08:29 ; Start 04/09/16 at 21:00; Stop 04/10/16 at 10:25; Status DC Pharmacy Profile Note 0 ml @ 0 mls/hr UNSCH OTHER ; Start 04/09/16 at 10:30; Stop 04/12/16 at 13:55; Status DC Vancomycin HCl/ Sodium Chloride (Vancomycin Inj/ NS 500 ml Inj) 515 ml @ 257.5 mls/ hr Q12H IV Last administered on 04/10/16 11:16; Start 04/09/16 at 12:00; Stop 04/10/16 at 13:51; Status DC Miscellaneous Information SPECIFIC LAB TO BE DRAWN:[facility]... ONCE ONCE XX ; Start 04/10/16 at 11:45; Stop 04/10/16 at 11:46; Status DC Insulin Detemir 35 units 35 units Q12HR SQ Last administered on 04/11/16 08:07 ; Start 04/10/16 at 21:00; Stop 04/11/16 at 09:15; Status DC Vancomycin HCl/ Sodium Chloride (Vancomycin Inj/ NS 500 ml Inj) 520 ml @ 260 mls/hr Q12H IV Last administered on 04/12/16 08:14; Start 04/10/16 at 20:00; Stop 04/12/16 at 13:55; Status DC Miscellaneous Information SPECIFIC LAB TO BE ISHAAN... ONCE ONCE XX Last administered on 04/12/16 07:45; Start 04/12/16 at 07:45; Stop 04/12/16 at 07:46; Status DC Insulin Detemir (Levemir Inj) 45 units Q12HR SQ Last administered on 04/23/16 08:29; Start 04/11/16 at 21:00; Stop 04/23/16 at 13:24; Status DC Metoclopramide HCl 10 mg 10 mg Q8HR IV PUSH Last administered on 05/25/16 06: 05; Start 04/11/16 at 14:00; Stop 05/25/16 at 12:09; Status DC Sodium Chloride (NS 1000 ml Inj) 2,000 ml @ 0 mls/hr NOW ONCE IV Last administered on 04/11/16 21:01; Start 04/11/16 at 21:00; Stop 04/11/16 at 21:01; Status DC Miscellaneous Information SPECIFIC LAB TO BE DRAWN:VANCOMYCIN TROUGH DATE TO... ONCE ONCE XX ; Start 04/13/16 at 19:45; Stop 04/13/16 at 19:46; Status Cancel Furosemide 20 mg 20 mg Q6H IV PUSH Last administered on 04/16/16 08:40; Start 04/12/16 at 15:00; Stop 04/16/16 at 09:25; Status DC Epoprostenol Sodium 30 ml/ Sodium Chloride 67.5 ml @ 8 mls/hr Q8H NEB ; Start 04/15/16 at 10:00; Stop 04/15/16 at 10:00; Status DC Epoprostenol Sodium/Sodium Chloride (Flolan (30,000 Ng/ml) Neb/NS Inj) 100 ml @ 8 mls/hr Q8H NEB Last administered on 04/18/16 02:09; Start 04/15/16 at 10:00 ; Stop 04/18/16 at 10:15; Status DC Furosemide (Lasix Inj) 20 mg Q8H IV PUSH Last administered on 04/23/16 08:31; Start 04/16/16 at 17:00; Stop 04/23/16 at 13:44; Status DC Methylprednisolone Sodium Succinate 40 mg 40 mg DAILY IV PUSH Last administered on 05/02/16 08:11; Start 04/18/16 at 09:00; Stop 05/02/16 at 08:39; Status DC Epoprostenol Sodium 25 ml/ Sodium Chloride 100 ml @ 8 mls/hr Q8H NEB Last administered on 04/19/16 13:12; Start 04/18/16 at 15:00; Stop 04/19/16 at 15:59 ; Status DC Vancomycin HCl 1500 mg/Sodium Chloride 515 ml @ 257.5 mls/ hr ONCE ONCE IV Last administered on 04/19/16 13:45; Start 04/19/16 at 13:00; Stop 04/19/16 at 14:59; Status DC Epoprostenol Sodium 12.5 ml/ Sodium Chloride 100 ml @ 8 mls/hr Q8H NEB Last administered on 04/20/16 00:29; Start 04/19/16 at 16:00; Stop 04/20/16 at 15:11 ; Status DC Pharmacy Profile Note 0 ml @ 0 mls/hr UNSCH OTHER ; Start 04/20/16 at 14:15; Stop 04/29/16 at 10:33; Status DC Vancomycin HCl/ Sodium Chloride (Vancomycin Inj/ NS 500 ml Inj) 520 ml @ 250 mls/hr Q12H IV Last administered on 04/24/16 05:53; Start 04/20/16 at 18:00; Stop 04/24/16 at 09:15; Status DC Miscellaneous Information SPECIFIC LAB TO BE DRAWN:VANCO TROUGH DATE TO... ONCE ONCE XX Last administered on 04/22/16 05:45; Start 04/22/16 at 05:45; Stop 04/22/16 at 05:46; Status DC Potassium Bicarb/ Potassium Chloride (K-Lyte Cl Eff) 25 meq Q12HR PO Last administered on 04/28/16 07:49; Start 04/21/16 at 21:00; Stop 05/27/16 at 08:44 ; Status DC Artificial Tears (Tears Naturale Opth Soln) 1 drop Q4H EACH EYE Last administered on 07/11/16 08:28; Start 04/21/16 at 18:00 Water (Free Water) 200 ml Q6HR G-TUBE Last administered on 04/30/16 12:00; Start 04/22/16 at 18:00; Stop 05/01/16 at 17:19; Status DC Albuterol/ Ipratropium (Duoneb Neb) 1 ampule Q6HR NEB NEB Last administered on 04/27/16 08:03; Start 04/23/16 at 16:00; Stop 04/27/16 at 16:00; Status DC Albuterol/ Ipratropium (Duoneb Neb) 1 ampule Q2HR NEB PRN NEB [id number] Last administered on 05/11/16 15:54; Start 04/23/16 at 13:15; Stop 05/17/16 at 20:14 ; Status DC Insulin Detemir (Levemir Inj) 55 units Q12HR SQ Last administered on 04/24/16 08:34; Start 04/23/16 at 21:00; Stop 04/24/16 at 12:17; Status DC Polyethylene Glycol (Miralax) 17 gm BID PO Last administered on 07/01/16 20:31 ; Start 04/24/16 at 09:00; Stop 07/07/16 at 10:55; Status DC Furosemide 20 mg 20 mg BID IV PUSH Last administered on 04/28/16 07:50; Start 04/23/16 at 21:00; Stop 04/28/16 at 11:08; Status DC Vancomycin HCl/ Sodium Chloride (Vancomycin Inj/ NS 500 ml Inj) 515 ml @ 257.5 mls/ hr Q12H IV Last administered on 04/28/16 11:59; Start 04/24/16 at 23:00; Stop 04/28/16 at 14:04; Status DC Miscellaneous Information SPECIFIC LAB TO BE .. ONCE ONCE XX Last administered on 04/25/16 22:45; Start 04/25/16 at 22:45; Stop 04/25/16 at 22:46 ; Status DC Insulin Detemir (Levemir Inj) 65 units Q12HR SQ Last administered on 04/25/16 09:00; Start 04/24/16 at 21:00; Stop 04/25/16 at 15:10; Status DC Polyethylene Glycol (Miralax) 17 gm ONCE ONCE PO Last administered on 16:21; Start 04/25/16 at 15:15; Stop 04/25/16 at 15:16; Status DC Polyethylene Glycol (Miralax) 17 gm DAILY PO ; Start 04/26/16 at 09:00; Stop at 11:33; Status DC Mineral Oil (Mineral Oil Liq) 15 ml ONCE ONCE PO Last administered on 16:21; Start 04/25/16 at 16:00; Stop 04/25/16 at 16:01; Status DC Potassium Chloride (KCl 40 Meq/30 ml Liq) 40 meq ONCE ONCE PO Last administered on 04/25/16 16:21; Start 04/25/16 at 15:15; Stop 04/25/16 at 15:16 ; Status DC Insulin Detemir (Levemir Inj) 75 units Q12HR SQ Last administered on 04/26/16 09:13; Start 04/25/16 at 21:00; Stop 04/26/16 at 14:43; Status DC Methylnaltrexone [place] (Relistor Inj) 12 mg ONCE ONCE SQ Last administered on 04/25/16 16:22; Start 04/25/16 at 16:00; Stop 04/25/16 at 16:01; Status DC Miscellaneous Information SPECIFIC LAB TO BE DRAWN:VANCO TROUGH DATE TO BE .. ONCE ONCE XX Last administered on 04/28/16 10:45; Start 04/28/16 at 10: 45; Stop 04/28/16 at 10:46; Status DC Methylnaltrexone [place] (Relistor Inj) 12 mg ONCE ONCE SQ Last administered on 04/26/16 15:18; Start 04/26/16 at 14:30; Stop 04/26/16 at 14:56; Status DC Lactulose (Lactulose Liq) 30 ml QID PO Last administered on 04/28/16 07:47; Start 04/26/16 at 18:00; Stop 05/27/16 at 08:44; Status DC Mineral Oil (Mineral Oil Liq) 15 ml ONCE ONCE PO Last administered on 15:19; Start 04/26/16 at 14:30; Stop 04/26/16 at 14:56; Status DC Sennosides (Senna Liq) 8.8 mg ONCE ONCE PO Last administered on 04/26/16 15: 25; Start 04/26/16 at 14:30; Stop 04/26/16 at 14:56; Status DC Magnesium Citrate (Citroma Liq) 300 ml ONCE ONCE PO Last administered on 15:25; Start 04/26/16 at 14:45; Stop 04/26/16 at 14:56; Status DC Potassium Chloride (KCl 40 Meq/30 ml Liq) 40 meq ONCE ONCE PO Last administered on 04/26/16 15:25; Start 04/26/16 at 14:45; Stop 04/26/16 at 14:56 ; Status DC Insulin Detemir (Levemir Inj) 80 units Q12HR SQ Last administered on 04/28/16 07:49; Start 04/26/16 at 21:00; Stop 04/28/16 at 11:19; Status DC Nystatin 1 applic 1 applic Q12HR TOPICAL Last administered on 07/11/16 08:28; Start 04/27/16 at 11:00 Aztreonam/Sodium Chloride (Azactam Inj/NS Inj) 100 ml @ 200 mls/hr Q8H IV Last administered on 04/29/16 02:39; Start 04/27/16 at 10:00; Stop 04/29/16 at 10:34; Status DC Potassium Chloride (KCl 40 Meq/30 ml Liq) 40 meq ONCE ONCE PO Last administered on 04/27/16 13:00; Start 04/27/16 at 13:00; Stop 04/27/16 at 13:02 ; Status DC Albuterol/ Ipratropium (Duoneb Neb) 1 ampule Q4HR NEB NEB Last administered on 05/02/16 07:53; Start 04/28/16 at 12:00; Stop 05/02/16 at 12:00; Status DC Sodium Chloride 2 ml 2 ml Q8HR NEB NEB Last administered on 05/01/16 07:21; Start 04/28/16 at 16:00; Stop 05/01/16 at 15:59; Status DC Sodium Chloride/ Sterile Water (Sodium Chloride 23.4% Inj/Sterile Water For Inj ) 1,009.625 ml @ 84 mls/hr Q12H2M IV Last administered on 04/28/16 13:23; Start 04/28/16 at 13:00; Stop 04/29/16 at 01:01; Status DC Insulin Detemir 70 units 70 units Q12HR SQ Last administered on 05/03/16 08:08 ; Start 04/28/16 at 21:00; Stop 05/05/16 at 17:18; Status DC Vancomycin HCl/ Sodium Chloride (Vancomycin Inj/ NS 250 ml Inj) 262.5 ml @ 250 mls/hr Q12H IV Last administered on 04/29/16 00:18; Start 04/28/16 at 23:00; Stop 04/29/16 at 10:34; Status DC Miscellaneous Information SPECIFIC LAB TO BE ISHAAN... ONCE ONCE XX ; Start at 10:45; Stop 04/30/16 at 10:45; Status DC Clindamycin Phosphate/Sodium Chloride (Cleocin Inj/NS Inj) 104 ml @ 208 mls/hr Q8H IV Last administered on 05/06/16 15:52; Start 04/29/16 at 12:00; Stop at 12:00; Status DC Lidocaine/ Epinephrine (Xylocaine-Epi 1%-1:100,000 Inj) 30 ml STK-MED ONCE .ROUTE ; Start 04/30/16 at 13:00; Stop 04/30/16 at 13:01; Status DC Fentanyl Citrate 250 mcg 250 mcg STK-MED ONCE .ROUTE ; Start 04/30/16 at 15:28; Stop 04/30/16 at 15:29; Status DC Dexmedetomidine HCl (Precedex Inj) 50 ml @ 0 mls/hr TITRATE IV Last administered on 05/02/16 18:32; Start 05/01/16 at 17:00; Stop 05/02/16 at 19:00; Status DC Water (Free Water) 100 ml Q6HR G-TUBE Last administered on 06/09/16 12:00; Start 05/01/16 at 18:00; Stop 06/10/16 at 15:51; Status DC Fentanyl (Duragesic 25 Mcg Patch.72 Hr) 1 patch Q3D TD Last administered on 09:05; Start 05/02/16 at 09:00; Stop 06/19/16 at 08:05; Status DC Miscellaneous Information 1 Q3D T-DERMAL Last administered on 06/13/16 08:23; Start 05/05/16 at 09:00; Stop 06/19/16 at 08:05; Status DC Oxycodone HCl (Roxicodone Intensol Liq) 5 mg Q6H PRN PO PAIN SCALE 7 TO 10 Last administered on 05/23/16 05:54; Start 05/02/16 at 08:45; Stop 06/05/16 at 22 :00; Status DC Acetaminophen/ Hydrocodone Bitart ([place] 5-325 Mg) 1 tab Q6H PO Last administered on 05/06/16 15:52; Start 05/02/16 at 09:00; Stop 05/06/16 at 18:52; Status DC Methylprednisolone Sodium Succinate (SoluMEDROL INJ) 30 mg DAILY IV PUSH Last administered on 05/04/16 07:55; Start 05/03/16 at 09:00; Stop 05/04/16 at 10:09; Status DC Midazolam HCl (Versed Inj) 5 mg STK-MED ONCE .ROUTE Last administered on 16:18; Start 05/02/16 at 16:14; Stop 05/02/16 at 16:15; Status DC Lorazepam (Ativan Inj) 2 mg STK-MED ONCE .ROUTE Last administered on 05/02/16 16:19; Start 05/02/16 at 16:15; Stop 05/02/16 at 16:16; Status DC Midazolam HCl (Versed Inj) 5 mg NOW ONCE IV Last administered on 05/02/16 16: 30; Start 05/02/16 at 16:30; Stop 05/02/16 at 16:31; Status DC Lorazepam 2 mg 2 mg Q4H PRN IVP AGITATION Last administered on 06/13/16 21:22 ; Start 05/02/16 at 16:30; Stop 06/19/16 at 08:05; Status DC Dexmedetomidine HCl/Sodium Chloride (Precedex Inj/NS 250 ml Inj) 260 ml @ 0 mls/ hr TITRATE IV Last administered on 05/04/16 09:53; Start 05/02/16 at 19:01; Stop 05/04/16 at 16:31; Status DC Hydralazine HCl (Apresoline Inj) 10 mg Q4H PRN IV PUSH SBP >165 Last administered on 05/03/16 06:20; Start 05/02/16 at 22:00; Stop 06/05/16 at 20:34; Status DC Propofol (Diprivan 200 Mg/20 ml Inj) 170 mg STK-MED ONCE IV ; Start 05/03/16 at 15:06; Stop 05/03/16 at 15:07; Status DC Quetiapine Fumarate (SEROquel) 25 mg BID PO Last administered on 06/21/16 10: 58; Start 05/04/16 at 09:00; Stop 06/21/16 at 13:25; Status DC Methylprednisolone Sodium Succinate (SoluMEDROL INJ) 20 mg DAILY IV PUSH Last administered on 05/11/16 08:02; Start 05/05/16 at 09:00; Stop 05/12/16 at 09:13 ; Status DC Fentanyl Citrate (fentaNYL INJ) 50 mcg NOW ONCE IV Last administered on 01:03; Start 05/05/16 at 01:00; Stop 05/05/16 at 01:02; Status DC Metoprolol Tartrate (Lopressor Inj) 2.5 mg NOW ONCE IV PUSH Last administered on 05/05/16 04:17; Start 05/05/16 at 04:00; Stop 05/05/16 at 04:01; Status DC Ondansetron HCl (Zofran Inj) 4 mg Q6H PRN IV NAUSEA OR VOMITING; Start 05/05/16 at 06:45 Bumetanide (Bumex Inj) 0.5 mg DAILY IV PUSH Last administered on 05/24/16 09: 25; Start 05/05/16 at 09:00; Stop 05/24/16 at 10:39; Status DC Albuterol/ Ipratropium (Duoneb Neb) 1 ampule TID NEB INH Last administered on 05/09/16 13:05; Start 05/05/16 at 14:00; Stop 05/09/16 at 14:00; Status DC Insulin Detemir (Levemir Inj) 50 units Q12HR SQ Last administered on 05/11/16 20:54; Start 05/05/16 at 21:00; Stop 05/13/16 at 13:50; Status DC Acetaminophen/ Hydrocodone Bitart ([place] 5-325 Mg) 1 tab Q12HR PO Last administered on 06/18/16 19:40; Start 05/06/16 at 21:00; Stop 06/19/16 at 08:05 ; Status DC Propofol 200 mg 200 mg STK-MED ONCE IV ; Start 04/30/16 at 15:12; Stop 05/07/16 at 15:12; Status DC Parenteral Electrolytes (Normosol R Inj) 2,000 ml @ As Directed STK-MED ONCE IV ; Start 04/30/16 at 15:12; Stop 05/07/16 at 15:12; Status DC Potassium Chloride (KCl) 10 meq DAILY PO Last administered on 07/06/16 08:48; Start 05/10/16 at 09:30; Stop 07/08/16 at 09:34; Status DC Simethicone (Phazyme Chew) 125 mg DAILY PRN PO gas Last administered on 15:00; Start 05/11/16 at 15:00 Insulin Detemir (Levemir Inj) 35 units Q12HR SQ Last administered on 05/30/16 20:26; Start 05/13/16 at 21:00; Stop 06/05/16 at 22:00; Status DC Dextrose (D50w (Vial) Inj) 25 ml UNSCH PRN IV PUSH HYPOGLYCEMIA-SEE COMMENTS; Start 05/13/16 at 14:00; Stop 05/31/16 at 21:54; Status DC Glucagon (Glucagon Inj) 1 mg UNSCH PRN OTHER HYPOGLYCEMIA-SEE COMMENTS; Start 05/13/16 at 14:00; Stop 05/31/16 at 21:54; Status DC Insulin Human Regular (NovoLIN R SUPPLEMENTAL SCALE) 1 ACHS SLIDING SCALE SQ Last administered on 05/25/16 06:19; Start 05/13/16 at 16:00; Stop 05/25/16 at 12:14; Status DC Silver Sulfadiazine (Silvadene 1% Cream (400 Gm)) 1 applic DAILY TOPICAL Last administered on 07/11/16 08:28; Start 05/16/16 at 11:00 Pregabalin (Lyrica) 25 mg DAILY PO Last administered on 05/19/16 08:22; Start 05/17/16 at 11:45; Stop 05/20/16 at 10:29; Status DC Ipratropium [place] (Atrovent Neb) 0.5 mg Q2HR NEB PRN NEB wheezing Last administered on 05/27/16 00:28; Start 05/17/16 at 21:00 Diltiazem HCl (Cardizem) 30 mg ONCE ONCE PO Last administered on 05/17/16 22: 44; Start 05/17/16 at 22:45; Stop 05/17/16 at 22:46; Status DC Potassium Chloride (KCl) 40 meq ONCE ONCE PO Last administered on 05/17/16 22 :44; Start 05/17/16 at 22:45; Stop 05/17/16 at 22:46; Status DC Pregabalin (Lyrica) 50 mg DAILY PO Last administered on 06/18/16 08:33; Start 05/21/16 at 09:00; Stop 06/19/16 at 08:05; Status DC Baclofen (Lioresal) 10 mg Q12HR PO Last administered on 06/18/16 19:39; Start 05/24/16 at 10:45; Stop 06/19/16 at 08:05; Status DC Bumetanide (Bumetanide) 0.5 mg ONCE ONCE PO Last administered on 05/25/16 09: 21; Start 05/25/16 at 09:00; Stop 05/25/16 at 09:01; Status DC Miscellaneous (Pill Splitter) 1 ea UNSCH PRN OTHER SEE LABEL COMMENTS; Start at 10:45 Pantoprazole Sodium (Protonix) 40 mg DAILY PO Last administered on 07/11/16 08 :27; Start 05/26/16 at 09:00 Insulin Human Regular (NovoLIN R SUPPLEMENTAL SCALE) 1 Q12HR SQ Last administered on 05/26/16 22:40; Start 05/25/16 at 19:00; Stop 05/27/16 at 08:44 ; Status DC Metoclopramide HCl (Reglan) 10 mg Q8HR G-TUBE Last administered on 06/02/16 14: 43; Start 05/25/16 at 14:00; Stop 06/02/16 at 14:49; Status DC Albuterol Sulfate 2.5 mg 2.5 mg ONCE ONCE NEB Last administered on 05/27/16 00:45; Start 05/27/16 at 00:45; Stop 05/27/16 at 00:46; Status DC Sodium Chloride (NS 1000 ml Inj) 999 ml @ 0 mls/hr BOLUS ONCE IV Last administered on 05/27/16 02:01; Start 05/27/16 at 02:00; Stop 05/27/16 at 04:31 ; Status DC Adenosine (Adenocard Inj) 6 mg NOW ONCE IV PUSH Last administered on 02:01; Start 05/27/16 at 02:01; Stop 05/27/16 at 04:31; Status DC Adenosine (Adenocard Inj) 12 mg NOW ONCE IV PUSH Last administered on 02:11; Start 05/27/16 at 02:11; Stop 05/27/16 at 04:31; Status DC Insulin Human Regular 1 1 Q4HR SQ ; Start 05/27/16 at 12:00; Stop 05/28/16 at 01 :44; Status DC Sodium Chloride (NS 1000 ml Inj) 1,000 ml @ 100 mls/hr Q10H IV Last administered on 05/27/16 19:00; Start 05/27/16 at 09:00; Stop 05/28/16 at 04:59 ; Status DC Albuterol/ Ipratropium (Duoneb Neb) 1 ampule Q6HR NEB NEB Last administered on 05/31/16 07:29; Start 05/27/16 at 10:00; Stop 05/31/16 at 10:00; Status DC Insulin Human Regular (NovoLIN R SUPPLEMENTAL SCALE) 1 BID@07,15 SQ Last administered on 05/28/16 14:34; Start 05/28/16 at 07:00; Stop 05/31/16 at 21:53 ; Status DC Adenosine (Adenocard Inj) 6 mg STK-MED ONCE IV PUSH ; Start 05/27/16 at 05:00; Stop 05/28/16 at 12:54; Status DC Dextrose (D50w (Vial) Inj) 25 ml UNSCH PRN IV PUSH HYPOGLYCEMIA-SEE COMMENTS; Start 05/31/16 at 22:00 Glucagon (Glucagon Inj) 1 mg UNSCH PRN OTHER HYPOGLYCEMIA-SEE COMMENTS; Start 05/31/16 at 22:00; Stop 06/19/16 at 08:05; Status DC Insulin Aspart (NovoLOG SUPPLEMENTAL SCALE) 1 ACHS SLIDING SCALE SQ Last administered on 06/12/16 18:00; Start 06/01/16 at 07:00; Stop 06/22/16 at 16:52 ; Status DC Albuterol/ Ipratropium (Duoneb Neb) 1 ampule Q6HR NEB NEB Last administered on 06/06/16 08:29; Start 06/02/16 at 16:00; Stop 06/06/16 at 10:56; Status DC Albuterol/ Ipratropium (Duoneb Neb) 1 ampule Q2HR NEB PRN NEB dyspnea Last administered on 06/21/16 20:16; Start 06/02/16 at 15:00 Insulin Detemir 5 units 5 units HS SQ Last administered on 07/10/16 21:35; Start 06/06/16 at 21:00 Propofol (Diprivan 1000 Mg/100ml Inj) 100 ml @ As Directed STK-MED ONCE .ROUTE ; Start 06/12/16 at 15:40; Stop 06/12/16 at 15:41; Status DC Midazolam HCl (Versed Inj) 5 mg STK-MED ONCE .ROUTE ; Start 06/12/16 at 15:41; Stop 06/12/16 at 15:42; Status DC Chlorhexidine Gluconate 15 ml 15 ml BID@08,20 MT ; Start 06/12/16 at 20:00; Stop 06/12/16 at 20:00; Status DC Propofol 100 ml @ 0 mls/hr TITRATE IV Last administered on 06/13/16 17:09; Start 06/12/16 at 17:45; Stop 06/19/16 at 08:05; Status DC Fentanyl Citrate 250 ml @ 0 mls/hr TITRATE IV Last administered on 06/12/16 20 :08; Start 06/12/16 at 17:45; Stop 06/19/16 at 08:06; Status DC Levofloxacin/ Dextrose 150 ml @ 100 mls/hr Q24H IV Last administered on 13:05; Start 06/13/16 at 14:00; Stop 06/19/16 at 10:06; Status DC Sodium Chloride 1,000 ml @ 999 mls/hr BOLUS ONCE IV Last administered on 06/13 14:43; Start 06/13/16 at 13:30; Stop 06/13/16 at 14:30; Status DC Sodium Chloride 1,000 ml @ 999 mls/hr BOLUS ONCE IV Last administered on 06/13 14:43; Start 06/13/16 at 13:30; Stop 06/13/16 at 14:30; Status DC Potassium Chloride 10 meq/ Sodium Chloride 1,005 ml @ 75 mls/hr [id number] IV Last administered on 06/22/16 00:24; Start 06/13/16 at 15:00; Stop 06/22/16 at 18:02; Status DC Sodium Chloride 1,000 ml @ 0 mls/hr ONCE ONCE IV Last administered on 08:48; Start 06/15/16 at 07:30; Stop 06/15/16 at 07:31; Status DC Cefazolin Sodium/ Dextrose 50 ml @ 100 mls/hr Q8H IV Last administered on 06/15 12:48; Start 06/15/16 at 12:00; Stop 06/15/16 at 13:13; Status DC Vancomycin HCl 1500 mg/Sodium Chloride 515 ml @ 257.5 mls/ hr ONCE ONCE IV Last administered on 06/15/16 15:12; Start 06/15/16 at 14:00; Stop 06/15/16 at 15:59; Status DC Pharmacy Profile Note 0 ml @ 0 mls/hr UNSCH OTHER ; Start 06/15/16 at 13:00; Stop 06/19/16 at 10:06; Status DC Aztreonam 1000 mg/ Sodium Chloride 100 ml @ 200 mls/hr Q8H IV Last administered on 06/19/16 05:21; Start 06/15/16 at 13:00; Stop 06/19/16 at 10:06 ; Status DC Vancomycin HCl/ Sodium Chloride (Vancomycin Inj/ NS 500 ml Inj) 515 ml @ 257.5 mls/ hr Q12H IV Last administered on 06/17/16 02:49; Start 06/16/16 at 02:00; Stop 06/17/16 at 08:43; Status DC Miscellaneous Information SPECIFIC LAB TO BE DRAWN:VANCO TROUGH DATE TO BE DR... ONCE ONCE .XX Last administered on 06/17/16 01:45; Start 06/17/16 at 01 :45; Stop 06/17/16 at 01:46; Status DC Vancomycin HCl/ Sodium Chloride (Vancomycin Inj/ NS 500 ml Inj) 517.5 ml @ 257.5 mls/ hr Q12H IV Last administered on 06/19/16 03:33; Start 06/17/16 at 14:00; Stop 06/19/16 at 08:51; Status DC Miscellaneous Information SPECIFIC LAB TO BE DRAWN:VANCOMY... ONCE ONCE .XX Last administered on 06/19/16 02:04; Start 06/19/16 at 01:45; Stop 06/19/16 at 01:46; Status DC Miscellaneous Information D/C ICU ELECTROLYTE ORDERS... UNSCH PRN .XX SEE DOSE INSTRUCTIONS; Start 06/17/16 at 10:30; Status Cancel Miscellaneous Information ICU - CALL ORDERING PHYSIC... UNSCH PRN .XX SEE DOSE INSTRUCTIONS; Start 06/17/16 at 10:30; Status Cancel Potassium Chloride (KCl 40 Meq Premix Inj) 100 ml @ 25 mls/hr UNSCH PRN IV ELECTROLYTE REPLACEMENT Last administered on 06/17/16 17:40; Start 06/17/16 at 10:30; Stop 07/08/16 at 09:34; Status DC Potassium Bicarb/ Potassium Chloride 50 meq 50 meq UNSCH PRN PO ELECTROLYTE REPLACEMENT; Start 06/17/16 at 10:30; Status Cancel Potassium Chloride 100 ml @ 50 mls/hr UNSCH PRN IV ELECTROLYTE REPLACEMENT; Start 06/17/16 at 10:30; Status Cancel Magnesium Sulfate 4 gm/Sodium Chloride 108 ml @ 54 mls/hr UNSCH PRN IV ELECTROLYTE REPLACEMENT; Start 06/17/16 at 10:30; Status Cancel Magnesium Sulfate/ Sodium Chloride (Magnesium Sulfate Inj/NS Inj) 104 ml @ 52 mls/hr UNSCH PRN IV ELECTROLYTE REPLACEMENT; Start 06/17/16 at 10:30; Status Cancel Magnesium Oxide 800 mg 800 mg UNSCH PRN PO ELECTROLYTE REPLACEMENT; Start 06/17 at 10:30; Status Cancel Sodium Phosphate/ Sodium Chloride (Sodium Phosphate Inj/NS 250 ml Inj) 260 ml @ 43.333 mls/ hr UNSCH PRN IV ELECTROLYTE REPLACEMENT; Start 06/17/16 at 10:30 ; Status Cancel Potassium Phosphate 2000 mg 2,000 mg UNSCH PRN PO ELECTROLYTE REPLACEMENT; Start 06/17/16 at 10:30; Status Cancel Potassium Phosphate/Sodium Chloride (Potassium Phosphate Inj/NS 250 ml Inj) 260 ml @ 43.333 mls/ hr UNSCH PRN IV ELECTROLYTE REPLACEMENT; Start 06/17/16 at 10 :30; Status Cancel Baclofen (Lioresal) 5 mg Q12HR PO Last administered on 06/21/16 10:58; Start 06/19/16 at 09:00; Stop 06/21/16 at 13:25; Status DC Pregabalin (Lyrica) 150 mg DAILY PO Last administered on 06/21/16 10:58; Start 06/19/16 at 09:00; Stop 06/21/16 at 13:25; Status DC Tizanidine HCl (Zanaflex) 2 mg Q12HR PO Last administered on 06/21/16 10:58; Start 06/19/16 at 09:00; Stop 06/21/16 at 13:25; Status DC Oxycodone HCl 2.5 mg 2.5 mg Q6H PRN PO pain 1-7 Last administered on 06/24/16 13:00; Start 06/19/16 at 08:15; Stop 06/24/16 at 16:18; Status DC Vancomycin HCl/ Sodium Chloride (Vancomycin Inj/ NS 500 ml Inj) 520 ml @ 257.5 mls/ hr Q12H IV ; Start 06/19/16 at 14:00; Stop 06/19/16 at 14:00; Status DC Miscellaneous Information SPECIFIC LAB TO BE DRAWN:VANCOMYCIN TROUGH DATE TO... ONCE ONCE .XX ; Start 06/21/16 at 01:45; Stop 06/21/16 at 01:45; Status DC Cefepime HCl 2000 mg/Sodium Chloride 100 ml @ 200 mls/hr Q12H IV Last administered on 06/26/16 00:00; Start 06/19/16 at 12:00; Stop 06/26/16 at 10:31 ; Status DC Norepinephrine Bitartrate 250 ml @ As Directed STK-MED ONCE IV Last administered on 06/19/16 16:09; Start 06/19/16 at 13:51; Stop 06/19/16 at 13:52 ; Status DC Sodium Chloride 1,000 ml @ 0 mls/hr BOLUS STAT IV ; Start 06/19/16 at 17:58; Stop 06/19/16 at 17:59; Status DC Fluconazole/ Sodium Chloride 200 ml @ 100 mls/hr Q24H IV Last administered on 06/22/16 09:12; Start 06/20/16 at 11:00; Stop 06/22/16 at 14:07; Status DC Vancomycin HCl 1500 mg/Sodium Chloride 515 ml @ 257.5 mls/ hr ONCE ONCE IV ; Start 06/20/16 at 11:00; Stop 06/20/16 at 11:26; Status DC Pharmacy Profile Note 0 ml @ 0 mls/hr UNSCH OTHER ; Start 06/20/16 at 11:00; Stop 06/22/16 at 14:07; Status DC Vancomycin HCl/ Sodium Chloride (Vancomycin Inj/ NS 500 ml Inj) 520 ml @ 250 mls/hr Q12H IV Last administered on 06/22/16 11:46; Start 06/20/16 at 13:00; Stop 06/22/16 at 14:07; Status DC Miscellaneous Information SPECIFIC LAB TO BE DRAWN:VANCO TROUGH DATE TO... ONCE ONCE .XX Last administered on 06/22/16 00:45; Start 06/22/16 at 00:45; Stop 06/22/16 at 00:46; Status DC Baclofen (Lioresal) 5 mg DAILY PO Last administered on 07/11/16 08:28; Start 06/22/16 at 09:00 Pregabalin (Lyrica) 75 mg Q12HR PO Last administered on 07/11/16 08:27; Start 06/22/16 at 09:00 Miscellaneous Information SPECIFIC LAB TO BE .. ONCE ONCE .XX ; Start 06/23 at 12:45; Stop 06/23/16 at 12:45; Status DC Oxycodone HCl (Roxicodone) 2.5 mg Q4H PRN PO pain 1-6 Last administered on 07/11 04:10; Start 06/24/16 at 17:00 Polyethylene Glycol (Miralax) 17 gm BID PRN PO CONSTIPATION; Start 07/07/16 at 11:00 Propofol (Diprivan 200 Mg/20 ml Inj) 200 mg STK-MED ONCE IV ; Start 06/20/16 at 11:14; Stop 07/10/16 at 11:14; Status DC Ondansetron HCl (Zofran Inj) 4 mg STK-MED ONCE IV PUSH ; Start 06/20/16 at 11:14 ; Stop 07/10/16 at 11:14; Status DC Date of Removal: Jun 29, 2016 A/P Assessment and Plan A/P - Acute respiratory failure mixed - hypercarbic and hypoxemic. - Probable obstructive sleep apnea - Obesity hypoventilation syndrome. - s/p Tracheostomy - On T-piece, O2 sat stable, trach collar, keep O2 sat > 92% - Pulmonary following - Continue DuoNeb treatments. 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 - Currently on Baclofen 5mg daily, Lyrica 75mg bid, with oxycodone 2.5mg po q4h prn pain - Patient now AAOx4. - Diabetes mellitus type 2 with neuropathy - HgbA1c 7.4 in . Goal glucose 140-180. - Continue Levemir 5 units QHS . - Blood glucose well controlled - Continue Accu-cheks bid - continue Lyrica and Baclofen for neuropathy - Nutrition: s/p PEG tube placed initially on 05/[address] Faith - 06/09-pt complains of irritation/drainage/discomfort at PEG insertion site, he is tolerating all meals and medications by mouth - PEG removed 06/[address] Munson - Transaminitis: LFTs improved, abdominal pain resolved. - Liver US shows fatty liver. Small stones or tumefactive sludge adherent to one of the gallbladder arcos. Splenomegaly. - Avoid hepatotoxins - Hep panel negative - Wound on anterior neck 04/05 trach collar, stage III: Patient has a short and large neck. -Optifoam in place. -Apply bacitracin. -Wound cultures with normal sherine. -Consult wound care, discussed with Nica from wound care, Cleanse wound with NS and apply nonadhesive foam ag dressing over wound and change every other day and PRN for saturation or dislodgement. on silvadene cream daily. - Morbid Obesity with BMI 51.8 on admission -encouraged weight loss - Left Shoulder Pain: with decreased ROM. Xrays negative for fracture/ dislocations. - continue PT - continue pain control with oxycodone 2.5mg po q4h prn - Placement efforts in progress. Case management assisting. Full code. Lovenox. Discharge Planning needs SNF placement. dc planning in progress. Mg Setarns MD July 11, 2016 10:29
[2016-07-11] MEDS: RESP: ALBUTEROL 2.5 MG/IPRATROPIUM 0.5 MG NEB (PRN) NEB (12:19)
--- NOTE | 2016-07-11 18:43 | HHI.PR ---
Subjective Remarks respiratory failure DOING WELL , NOW ON T TUBE Objective Vital Signs Date Time Temp Pulse Resp B/P Pulse Ox O2 Delivery O2 Flow Rate FiO2 07/11/16 17:16 94 T-piece 28 07/11/16 08:47 94 T-piece 25 07/11/16 08:46 Trach Collar 4.00 28 T-Piece 07/11/16 08:00 97.9 96 20 117/64 07/11/16 04:00 98.4 84 18 108/57 95 07/11/16 00:00 98.5 92 18 119/69 97 07/10/16 20:00 Trach Collar 4.00 T-Piece 07/10/16 20:00 98.2 76 16 110/59 96 I/O 07/10/16 07/10/16 07/10/16 07/11/16 07/11/16 07/11/16 07:00 15:00 23:00 07:00 15:00 23:00 Intake Total 120 ml 720 ml 360 ml Output Total 450 ml 600 ml 200 ml Balance -330 ml 120 ml 160 ml Intake Oral 120 ml 720 ml 360 ml Output Urine Total 450 ml 600 ml 200 ml # Bowel Movements 0 2 0 Objective Remarks GENERAL: SKIN: Warm and dry.on vent support HEAD: Atraumatic. Normocephalic. EYES: Pupils equal and round. No scleral icterus. No injection or drainage. ENT: No nasal bleeding or discharge. Mucous membranes pink and moist. NECK: Trachea midline. No JVD. CARDIOVASCULAR: Regular rate and rhythm. RESPIRATORY: No accessory muscle use. Clear to auscultation. Breath sounds equal bilaterally. GASTROINTESTINAL: Abdomen soft, non-tender, nondistended. Hepatic and splenic margins not palpable. MUSCULOSKELETAL: Extremities without clubbing, cyanosis, or edema. No obvious deformities. NEUROLOGICAL: Awake and alert. No obvious cranial nerve deficits.right hemiplegia Assessment and Plan Assessment and Plan respiratory failure morbid obesity plan O2 NEEDED pulm toilet prognosis guarded Orlando Perry MD July 11, 2016 18:43
[2016-07-11] MEDS: INSULIN DETEMIR 100 UNITS/ML VIAL SQ SCH (20:30)
[2016-07-12] VITALS (8 sets, daily range): BP systolic 112–121; BP diastolic 58–73; PULSE 79–103; RESP 18–20; TEMP 97.8–98.6; O2SAT 92–98
[2016-07-12] MEDS: ARTIFICIAL TEARS OPTH SOLN 15 ML BTL EACH EYE SCH ×6 (01:09→22:00)
[2016-07-12] MEDS: ENOXAPARIN SODIUM 40 MG/0.4 ML SYRINGE SQ SCH ×2 (05:09→17:37)
[2016-07-12] MEDS: SILVER SULFADIAZINE 1% CR 400 GM JAR TOPICAL SCH (09:00)
[2016-07-12] MEDS: NYSTATIN 100,000 U/GM PWD 15 GM BTL TOPICAL SCH ×2 (09:00→20:28)
[2016-07-12] MEDS: SODIUM CHLORIDE 0.9% FLUSH 5 ML FLUSH IVF SCH (09:00)
[2016-07-12] MEDS: DOCUSATE SODIUM 100 MG/10 ML UDC PO SCH ×2 (09:00→20:28)
[2016-07-12] MEDS: BENEPROTEIN POWDER 1 PACK G-TUBE SCH ×3 (09:00→17:37)
[2016-07-12] MEDS: BETAMETHASONE/CLOTRIMAZOLE CREAM 15 GM TOPICAL SCH ×2 (09:00→20:28)
[2016-07-12] MEDS: PANTOPRAZOLE SOD 40 MG DELAYED RELEASE TAB PO SCH (09:26)
[2016-07-12] MEDS: BACLOFEN 10 MG TAB PO SCH (09:26)
[2016-07-12] MEDS: PREGABALIN 75 MG CAP PO SCH ×2 (09:26→20:24)
--- NOTE | 2016-07-12 09:26 | HHI.PR ---
Subjective Remarks resting comfortably with no distress. no new complaints and clinically no change. Objective Vitals Vital Signs Date Time Temp Pulse Resp B/P Pulse Ox O2 Delivery O2 Flow Rate FiO2 07/12/16 05:54 98.5 103 18 117/73 94 07/12/16 00:15 98.6 101 20 121/64 96 07/11/16 20:33 99.1 100 20 116/64 92 07/11/16 20:00 Trach Collar 5.00 T-Piece 07/11/16 20:00 102 07/11/16 17:16 94 T-piece 28 07/11/16 16:00 98.5 92 20 121/75 94 07/11/16 12:00 98.3 96 20 116/70 94 I/O 07/11/16 07/11/16 07/11/16 07/12/16 07/12/16 07/12/16 07:00 15:00 23:00 07:00 15:00 23:00 Intake Total 1080 ml 240 ml Output Total 500 ml Balance 1080 ml 240 ml -500 ml Intake Oral 1080 ml 240 ml Output Urine Total 500 ml # Voids 3 # Bowel Movements 1 0 Imaging Last Impressions Chest X-Ray 06/30/16 0600 Signed Impressions: Service Date/Time: Thursday, June 30, 2016 06:07 - CONCLUSION: No significant change. Mild bilateral perihilar and basilar consolidation again noted. Ubaldo Ortiz MD Shoulder X-Ray 06/28/16 0000 Signed Impressions: Service Date/Time: June 15:12 - CONCLUSION: 1. Limited but negative examination of the shoulder. Kyaw Rojo MD Abdomen X-Ray 06/19/16 0000 Signed Impressions: Service Date/Time: Sunday, June 19, 2016 10:43 - CONCLUSION: Gastric tube tip does not cross the diaphragm and the side port is approximately 8 cm above the diaphragm. Chano Goodwin MD Lower Extremity Ultrasound 06/04/16 0000 Signed Impressions: Service Date/Time: Saturday, June 04, 2016 14:54 - CONCLUSION: 1. No DVT identified. Dc Barton MD Liver Ultrasound 05/09/16 0000 Signed Impressions: Service Date/Time: Monday, May 09, 2016 22:28 - CONCLUSION: 1. Enlarged, fatty liver. 2. Small stones or tumefactive sludge adherent to one of the gallbladder arcos. 3. Splenomegaly. 4. Pancreas is obscured by overlying bowel gas and patient's body habitus. Arthur Kennedy MD Chest CT 03/28/16 0836 Signed Impressions: Service Date/Time: Monday, March 28, 2016 09:57 - CONCLUSION: Development areas of air bronchograms and consolidation more prominent in the right and left posterior basilar segments of the lower lobes. ET tube above the chanelle. Bernard Hartman MD CT Angiography 03/24/16 1121 Signed Impressions: Service Date/Time: Thursday, March 24, 2016 12:47 - CONCLUSION: 1. There is respiratory motion artifact but no PE is identified through most of the segmental level pulmonary arteries. 2. Mildly enlarged main pulmonary artery may indicate pulmonary arterial hypertension. 3. 11 mm left lower lobe noncalcified pulmonary nodule. Suggest correlation with any prior imaging studies that could confirm longer-term stability. If none are available consider short-term followup noncontrast chest CT in approximately 3 months. Ubaldo Rodas MD Objective Remarks GENERAL: in no apparent distress. Neck; trach in place CARDIOVASCULAR: Regular rate and regular rhythm without murmurs, gallops, or rubs. RESPIRATORY: Clear to auscultation. Breath sounds equal bilaterally. No wheezes , rales, or rhonchi. GASTROINTESTINAL: Abdomen soft, non-tender, nondistended. Normal, active bowel sounds MUSCULOSKELETAL: Extremities without clubbing, cyanosis, or edema. NEURO: Alert & Oriented x4 to person, place, time, situation. Moves all ext x4 Procedures 04/30/16 - tracheostomy by Dr. Reyes 05/03/16 - EGD with PEG placement by Dr. Faith 06/09/16 - PEG removal 06/21/16- repeat tracheostomy by Dr. Cuellar Medications and IVs Current Medications IV Flush (NS Flush) 2 ml UNSCH PRN IVF FLUSH AFTER USING IV ACCESS Last administered on 05/23/16 05:55; Start 03/24/16 at 11:30 Iohexol (Omnipaque 350 Inj) 89 ml STK-MED ONCE IV Last administered on 13:08; Start 03/24/16 at 13:08; Stop 03/24/16 at 13:09; Status DC Albuterol/ Ipratropium (Duoneb Neb) 1 ampule Q6HR NEB NEB Last administered on 04/04/16 07:42; Start 03/24/16 at 17:00; Stop 04/04/16 at 07:43; Status DC Dextrose (D50w (Vial) Inj) 25 ml UNSCH PRN IV PUSH HYPOGLYCEMIA-SEE COMMENTS; Start 03/24/16 at 16:30; Stop 03/31/16 at 11:22; Status DC Glucagon (Glucagon Inj) 1 mg UNSCH PRN OTHER HYPOGLYCEMIA-SEE COMMENTS; Start 03/24/16 at 16:30; Stop 03/31/16 at 11:22; Status DC Insulin Human Regular (NovoLIN R SUPPLEMENTAL SCALE) 1 ACHS SLIDING SCALE SQ Last administered on 03/31/16 06:09; Start 03/24/16 at 21:00; Stop 03/31/16 at 11:16; Status DC Albuterol/ Ipratropium (Duoneb Neb) 1 ampule Q2HR NEB PRN NEB WHEEZING AND SOB Last administered on 04/20/16 08:10; Start 03/24/16 at 16:45; Stop 04/23/16 at 13:22; Status DC Enoxaparin Sodium (Lovenox Inj) 40 mg Q24H SQ Last administered on 03/25/16 17 :00; Start 03/24/16 at 17:00; Stop 03/26/16 at 16:40; Status DC Pantoprazole Sodium (Protonix) 40 mg DAILY PO Last administered on 03/26/16 08 :35; Start 03/25/16 at 09:00; Stop 03/26/16 at 16:40; Status DC Influenza Virus Vaccine (Flu (Quadrivalent) Vaccine Inj) 0.5 ml ONCE ONCE IM Last administered on 03/25/16 08:57; Start 03/25/16 at 10:00; Stop 03/25/16 at 10:01; Status DC Chlorhexidine Gluconate (Chlorhexidine 2% Cloth) 3 pack DAILY@04 TOP Last administered on 03/29/16 03:42; Start 03/25/16 at 04:00; Stop 03/29/16 at 04:01 ; Status DC Chlorhexidine Gluconate (Chlorhexidine 2% Cloth) 3 pack UNSCH PRN TOP HYGIENIC CARE; Start 03/24/16 at 19:15; Stop 03/29/16 at 19:07; Status DC Tiotropium [place] (Spiriva Inh) 18 mcg DAILY INH Last administered on 08:36; Start 03/25/16 at 13:45; Stop 05/05/16 at 13:25; Status DC Metformin HCl (Glucophage) 500 mg BIDPC PO Last administered on 03/28/16 08:18 ; Start 03/26/16 at 09:00; Stop 04/07/16 at 10:16; Status DC Betamethasone/ Clotrimazole (Lotrisone Cream) 1 applic Q12HR TOPICAL Last administered on 07/11/16 20:27; Start 03/26/16 at 09:00 Methylprednisolone Sodium Succinate 60 mg 60 mg Q12HR IV PUSH Last administered on 03/28/16 08:17; Start 03/26/16 at 13:30; Stop 03/28/16 at 10:25 ; Status DC Propofol (Diprivan 1000 Mg/100ml Inj) 100 ml @ As Directed STK-MED ONCE .ROUTE ; Start 03/26/16 at 13:16; Stop 03/26/16 at 13:17; Status DC Etomidate 40 mg 40 mg STK-MED ONCE .ROUTE ; Start 03/26/16 at 13:20; Stop at 13:21; Status DC Propofol 100 ml @ 0 mls/hr TITRATE IV Last administered on 04/15/16 06:35; Start 03/26/16 at 14:30; Stop 05/02/16 at 08:34; Status DC Fentanyl Citrate (fentaNYL DRIP) 250 ml @ 0 mls/hr TITRATE IV Last administered on 05/02/16 15:59; Start 03/26/16 at 14:30; Stop 05/02/16 at 19:46; Status DC Rocuronium [place] (Zemuron Inj) 50 mg STK-MED ONCE .ROUTE ; Start 03/26/16 at 15:38; Stop 03/26/16 at 15:39; Status DC Rocuronium [place] (Zemuron Inj) 50 mg STK-MED ONCE .ROUTE ; Start 03/26/16 at 15:40; Stop 03/26/16 at 15:41; Status DC Furosemide (Lasix Inj) 40 mg ONCE ONCE IV PUSH Last administered on 03/26/16 18:00; Start 03/26/16 at 16:45; Stop 03/26/16 at 17:08; Status DC Furosemide (Lasix Inj) 20 mg BID@09,18 IV PUSH Last administered on 03/29/16 08:06; Start 03/26/16 at 18:00; Stop 03/29/16 at 08:43; Status DC Pantoprazole Sodium (Protonix Inj) 40 mg Q24H IV PUSH Last administered on 05/24 18:00; Start 03/26/16 at 18:00; Stop 05/25/16 at 12:09; Status DC Enoxaparin Sodium 40 mg 40 mg Q12H SQ Last administered on 07/12/16 05:09; Start 03/26/16 at 18:00 Aztreonam 2000 mg/ Sodium Chloride 100 ml @ 200 mls/hr Q8H IV Last administered on 03/31/16 10:23; Start 03/26/16 at 18:00; Stop 03/31/16 at 13:55 ; Status DC Potassium Chloride 100 ml @ 50 mls/hr Q2H PRN IV For Potassium 2.8 - 3.2 mEq/ L Last administered on 05/03/16 23:31; Start 03/26/16 at 16:45; Stop 05/17/16 at 17:12; Status DC Potassium Chloride (KCl 20 Meq Premix Inj) 100 ml @ 50 mls/hr Q2H PRN IV For Potassium 2.8 - 3.2 mEq/L Last administered on 05/07/16 23:26; Start 03/26/16 at 16:45; Stop 05/17/16 at 17:12; Status DC Potassium Chloride 40 meq 40 meq UNSCH PRN PO/TUBE For Potassium 3.3 - 3.5 mEq/ L Last administered on 05/17/16 09:28; Start 03/26/16 at 16:45; Stop 05/17/16 at 17:12; Status DC Potassium Chloride 100 ml @ 25 mls/hr UNSCH PRN IV For Potassium 3.3 - 3.5 mEq /L Last administered on 04/20/16 09:17; Start 03/26/16 at 16:45; Stop 05/17/16 at 17:12; Status DC Potassium Chloride 100 ml @ 50 mls/hr Q2H PRN IV For Potassium 3.3 - 3.5 mEq/ L Last administered on 05/08/16 11:22; Start 03/26/16 at 16:45; Stop 05/17/16 at 17:12; Status DC Magnesium Sulfate/ Sodium Chloride (Magnesium Sulfate Inj/NS Inj) 100 ml @ 50 mls/hr UNSCH PRN IV For Magnesium 0.9 - 1.1 mg/dL; Start 03/26/16 at 16:45; Stop 05/17/16 at 17:12; Status DC Magnesium Oxide 800 mg 800 mg UNSCH PRN PO For Magnesium 1.2 - 1.6 mg/dL; Start 03/26/16 at 16:45; Stop 05/17/16 at 17:12; Status DC Magnesium Sulfate/ Sodium Chloride (Magnesium Sulfate Inj/NS Inj) 100 ml @ 50 mls/hr UNSCH PRN IV For Magnesium 1.2 - 1.6 mg/dL; Start 03/26/16 at 16:45; Stop 05/17/16 at 17:12; Status DC Potassium Phosphate 2000 mg 2,000 mg Q4H PRN PO For Phosphorus < 2.5 mg/dL Last administered on 04/01/16 05:08; Start 03/26/16 at 16:45; Stop 05/17/16 at 17:12; Status DC Sodium Phosphate/ Sodium Chloride (Sodium Phosphate Inj/NS 250 ml Inj) 250 ml @ 42 mls/hr UNSCH PRN IV For Phosphorus < 2.5 mg/dL Last administered on 14:19; Start 03/26/16 at 16:45; Stop 05/17/16 at 17:12; Status DC Potassium Chloride (KCl 40 Meq/30 ml Liq) 40 meq UNSCH PRN PO/TUBE SEE LABEL COMMENTS; Start 03/26/16 at 16:45; Stop 05/17/16 at 17:12; Status DC Potassium Phosphate 2000 mg 2,000 mg UNSCH PRN PO/TUBE SEE LABEL COMMENTS; Start 03/26/16 at 16:45; Stop 05/17/16 at 17:12; Status DC Potassium Phosphate/Sodium Chloride (Potassium Phosphate Inj/NS 250 ml Inj) 260 ml @ 42 mls/hr UNSCH PRN IV SEE LABEL COMMENTS Last administered on 05/03/16 08:23; Start 03/26/16 at 16:45; Stop 05/17/16 at 17:12; Status DC Potassium Chloride 40 meq 40 meq DAILY PO Last administered on 04/01/16 09:18 ; Start 03/26/16 at 18:00; Stop 04/02/16 at 07:20; Status DC Metronidazole (Flagyl 500 Mg Inj) 100 ml @ 100 mls/hr Q8H IV Last administered on 04/10/16 07:44; Start 03/27/16 at 08:00; Stop 04/10/16 at 13:30; Status DC Protein 1 pack 1 pack TID G-TUBE Last administered on 07/08/16 17:40; Start at 09:00 Vancomycin HCl 1500 mg/Sodium Chloride 515 ml @ 257.5 mls/ hr ONCE ONCE IV Last administered on 03/27/16 10:21; Start 03/27/16 at 09:00; Stop 03/27/16 at 10:59; Status DC Pharmacy Profile Note 0 ml @ 0 mls/hr UNSCH OTHER ; Start 03/27/16 at 08:00; Stop 03/31/16 at 13:55; Status DC Vancomycin HCl/ Sodium Chloride (Vancomycin Inj/ NS 500 ml Inj) 520 ml @ 260 mls/hr Q24H IV Last administered on 03/30/16 04:04; Start 03/28/16 at 04:00; Stop 03/30/16 at 11:11; Status DC Miscellaneous Information SPECIFIC LAB TO BE ISHAAN... ONCE ONCE XX Last administered on 03/30/16 03:45; Start 03/30/16 at 03:45; Stop 03/30/16 at 03:46 ; Status DC Insulin Detemir 5 units 5 units Q12HR SQ Last administered on 03/31/16 21:17; Start 03/28/16 at 11:00; Stop 04/01/16 at 08:57; Status DC Pharmacy Profile Note (Vancomycin Consult Pharmacy) 0 ml @ 0 mls/hr UNSCH OTHER ; Start 03/28/16 at 10:15; Status UNV Methylprednisolone Sodium Succinate (SoluMEDROL INJ) 40 mg Q12HR IV PUSH Last administered on 04/17/16 07:26; Start 03/28/16 at 21:00; Stop 04/17/16 at 09:03 ; Status DC Docusate Sodium (Colace Liq) 100 mg Q12HR PO Last administered on 07/10/16 08: 14; Start 03/29/16 at 09:00 Sennosides (Senna Liq) 8.8 mg DAILY PO Last administered on 03/31/16 08:40; Start 03/29/16 at 09:00; Stop 04/01/16 at 08:57; Status DC Furosemide (Lasix Inj) 40 mg BID@09,18 IV PUSH ; Start 03/29/16 at 18:00; Stop 03/29/16 at 18:00; Status DC Furosemide 40 mg 40 mg BID@09,18 IV PUSH Last administered on 04/01/16 17:37; Start 03/29/16 at 09:00; Stop 04/02/16 at 07:14; Status DC Vancomycin HCl/ Sodium Chloride (Vancomycin Inj/ NS 500 ml Inj) 517.5 ml @ 250 mls/hr Q12H IV Last administered on 03/31/16 03:19; Start 03/30/16 at 16:00; Stop 03/31/16 at 13:55; Status DC Miscellaneous Information SPECIFIC LAB TO BE ISHAAN... ONCE ONCE XX Last administered on 03/31/16 15:41; Start 03/31/16 at 15:45; Stop 03/31/16 at 15:46 ; Status DC Acetaminophen (Tylenol 650 Mg/ 20 ml Liq) 650 mg Q6H PRN PO fever or pain 1-5 Last administered on 06/23/16 21:37; Start 03/30/16 at 15:45 Bumetanide (Bumex Inj) 1 mg ONCE ONCE IV PUSH ; Start 03/31/16 at 09:30; Stop 03/31/16 at 10:40; Status DC Dextrose (D50w (Vial) Inj) 25 ml UNSCH PRN IV PUSH HYPOGLYCEMIA-SEE COMMENTS; Start 03/31/16 at 11:15; Stop 04/03/16 at 17:53; Status DC Glucagon (Glucagon Inj) 1 mg UNSCH PRN OTHER HYPOGLYCEMIA-SEE COMMENTS; Start 03/31/16 at 11:15; Stop 04/07/16 at 10:46; Status DC Insulin Human Regular 1 1 Q6H SQ Last administered on 04/03/16 17:48; Start at 12:00; Stop 04/03/16 at 17:54; Status DC Levofloxacin/ Dextrose 150 ml @ 100 mls/hr Q24H IV Last administered on 14:07; Start 03/31/16 at 14:00; Stop 04/16/16 at 09:51; Status DC Fluconazole/ Sodium Chloride 200 ml @ 100 mls/hr Q24H IV Last administered on 04/09/16 15:48; Start 03/31/16 at 16:00; Stop 04/10/16 at 13:31; Status DC Linezolid 300 ml @ 300 mls/hr Q12H IV Last administered on 04/04/16 02:45; Start 03/31/16 at 15:00; Stop 04/04/16 at 09:59; Status DC Cisatracurium Besylate 100 mg/ Sodium Chloride 250 ml @ 0 mls/hr TITRATE IV Last administered on 04/14/16 11:39; Start 04/01/16 at 09:00; Stop 04/15/16 at 09:02; Status DC Epoprostenol Sodium/Sodium Chloride (Flolan (30,000 Ng/ml) Neb/NS Inj) 100 ml @ 8 mls/hr Q8H NEB Last administered on 04/15/16 02:32; Start 04/01/16 at 10:00 ; Stop 04/15/16 at 09:02; Status DC Insulin Detemir (Levemir Inj) 15 units Q12HR SQ Last administered on 04/01/16 20:13; Start 04/01/16 at 09:00; Stop 04/02/16 at 07:14; Status DC Sennosides (Senna Liq) 8.8 mg BID PO/TUBE Last administered on 06/26/16 09:07 ; Start 04/01/16 at 09:00; Stop 07/07/16 at 10:55; Status DC Polyethylene Glycol (Miralax) 17 gm BID PO Last administered on 04/03/16 21:14 ; Start 04/01/16 at 09:00; Stop 04/23/16 at 13:31; Status DC Lactulose (Lactulose Liq) 30 ml QID PO Last administered on 04/01/16 20:13; Start 04/01/16 at 09:00; Stop 04/02/16 at 07:14; Status DC Methylnaltrexone [place] (Relistor Inj) 12 mg ONCE ONCE SQ Last administered on 04/01/16 11:44; Start 04/01/16 at 10:30; Stop 04/01/16 at 10:31; Status DC Metoclopramide HCl (Reglan Inj) 5 mg Q8HR IV PUSH Last administered on 05:42; Start 04/01/16 at 14:00; Stop 04/11/16 at 09:15; Status DC Glycerin (Glycerin Adult Supp) 2 gm BID PRN RECTAL CONSTIPATION Last administered on 04/25/16 10:22; Start 04/01/16 at 09:00 Glycerin (Glycerin Adult Supp) 2 gm ONCE ONCE RECTAL Last administered on 04/01 10:52; Start 04/01/16 at 09:30; Stop 04/01/16 at 09:31; Status DC Mineral Oil (Mineral Oil Liq) 15 ml ONCE ONCE PO Last administered on 10:00; Start 04/01/16 at 10:00; Stop 04/01/16 at 10:01; Status DC Chlorhexidine Gluconate 15 ml 15 ml BID@08,20 MT Last administered on 07/02/16 20:00; Start 04/01/16 at 20:00; Stop 07/07/16 at 10:56; Status DC Midazolam HCl 100 ml @ 0 mls/hr TITRATE IV Last administered on 05/01/16 14:25 ; Start 04/01/16 at 11:45; Stop 05/02/16 at 08:35; Status DC Norepinephrine Bitartrate (Levophed-Dextrose Drip) 250 ml @ 0 mls/hr TITRATE IV Last administered on 04/01/16 21:15; Start 04/01/16 at 20:30; Stop 04/07/16 at 10:10; Status DC Furosemide (Lasix Inj) 20 mg BID@09,18 IV PUSH Last administered on 04/03/16 08:17; Start 04/02/16 at 09:00; Stop 04/03/16 at 12:58; Status DC Insulin Detemir (Levemir Inj) 25 units Q12HR SQ Last administered on 04/03/16 08:17; Start 04/02/16 at 09:00; Stop 04/03/16 at 12:48; Status DC IV Flush (NS Flush) DAILY IVF Last administered on 07/11/16 08:28; Start at 09:00 IV Flush (NS Flush) UNSCH PRN IVF SEE PROTOCOL Last administered on 04/22/16 07:42; Start 04/02/16 at 09:30 Artificial Tears (Lacrilube Opht Oint) 1 applic Q12HR EACH EYE Last administered on 06/02/16 08:46; Start 04/02/16 at 12:00; Stop 06/02/16 at 14:00; Status DC Lactobacillus Acidophilus (Lactinex) 1 tab TID PO Last administered on 12:40; Start 04/03/16 at 13:00; Stop 07/07/16 at 13:12; Status DC Insulin Detemir (Levemir Inj) 40 units Q12HR SQ ; Start 04/03/16 at 21:00; Stop 04/03/16 at 21:00; Status DC Insulin Human NPH 15 units 15 units ONCE ONCE SQ Last administered on 13:08; Start 04/03/16 at 13:00; Stop 04/03/16 at 13:01; Status DC Sodium Chloride (NS 1000 ml Inj) 1,000 ml @ 999 mls/hr BOLUS ONCE IV Last administered on 04/03/16 13:10; Start 04/03/16 at 13:00; Stop 04/03/16 at 14:00 ; Status DC Sodium Polystyrene Sulfonate 15 gm 15 gm ONCE ONCE PO Last administered on 13:22; Start 04/03/16 at 13:00; Stop 04/03/16 at 13:08; Status DC Insulin Human Regular/Sodium Chloride (NovoLIN R (IV INFUSION)/NS Inj) 100 ml @ 0 mls/hr TITRATE IV Last administered on 04/03/16 22:44; Start 04/03/16 at 18: 00; Stop 04/04/16 at 09:12; Status DC Dextrose (D50w (Vial) Inj) 25 ml UNSCH PRN IV PUSH SEE LABEL COMMENTS; Start at 17:45; Stop 04/04/16 at 09:14; Status DC Miscellaneous Information 1 ONCE ONCE XX Last administered on 04/03/16 20:27 ; Start 04/03/16 at 17:45; Stop 04/03/16 at 17:52; Status DC Albuterol/ Ipratropium (Duoneb Neb) 1 ampule Q4HR NEB NEB Last administered on 04/08/16 03:48; Start 04/04/16 at 08:00; Stop 04/08/16 at 08:00; Status DC Furosemide 20 mg 20 mg BID@09,18 IV PUSH Last administered on 04/15/16 08:12; Start 04/04/16 at 09:00; Stop 04/15/16 at 09:53; Status DC Insulin Human Regular/Sodium Chloride (NovoLIN R (IV INFUSION)/NS Inj) 100 ml @ 0 mls/hr TITRATE IV Last administered on 04/07/16 04:33; Start 04/04/16 at 09:00 ; Stop 04/07/16 at 10:11; Status DC Dextrose (D50w (Vial) Inj) 25 ml UNSCH PRN IV PUSH SEE LABEL COMMENTS; Start at 09:00; Stop 04/07/16 at 10:46; Status DC Miscellaneous Information 1 ONCE ONCE XX Last administered on 04/04/16 10:00; Start 04/04/16 at 10:00; Stop 04/04/16 at 10:01; Status DC Insulin Detemir (Levemir Inj) 60 units Q12HR SQ Last administered on 04/07/16 07:41; Start 04/05/16 at 11:00; Stop 04/08/16 at 08:14; Status DC Dextrose (D50w (Vial) Inj) 25 ml UNSCH PRN IV PUSH HYPOGLYCEMIA-SEE COMMENTS; Start 04/07/16 at 10:15; Stop 04/07/16 at 17:03; Status DC Glucagon (Glucagon Inj) 1 mg UNSCH PRN OTHER HYPOGLYCEMIA-SEE COMMENTS; Start 04/07/16 at 10:15; Stop 04/07/16 at 17:03; Status DC Insulin Human Regular (NovoLIN R SUPPLEMENTAL SCALE) 1 Q6H SQ Last administered on 04/07/16 10:56; Start 04/07/16 at 11:00; Stop 04/07/16 at 17:01; Status DC Insulin Detemir (Levemir Inj) 20 units Q12HR SQ Last administered on 04/08/16 07:26; Start 04/07/16 at 21:00; Stop 04/08/16 at 08:14; Status DC Dextrose (D50w (Vial) Inj) 25 ml UNSCH PRN IV PUSH HYPOGLYCEMIA-SEE COMMENTS; Start 04/07/16 at 17:00; Stop 05/13/16 at 13:50; Status DC Glucagon (Glucagon Inj) 1 mg UNSCH PRN OTHER HYPOGLYCEMIA-SEE COMMENTS; Start 04/07/16 at 17:00; Stop 05/13/16 at 13:50; Status DC Insulin Human Regular (NovoLIN R SUPPLEMENTAL SCALE) 1 Q6H SQ Last administered on 05/11/16 17:08; Start 04/07/16 at 18:00; Stop 05/13/16 at 13:50 ; Status DC Insulin Detemir 24 units 24 units Q12HR SQ Last administered on 04/09/16 07:37 ; Start 04/08/16 at 21:00; Stop 04/09/16 at 10:01; Status DC Vancomycin HCl 1750 mg/Sodium Chloride 517.5 ml @ 258.75 mls/ hr ONCE ONCE IV Last administered on 04/08/16 14:42; Start 04/08/16 at 13:00; Stop 04/08/16 at 14:59; Status DC Sodium Chloride (NS 500 ml Inj) 500 ml @ 500 mls/hr BOLUS ONCE IV Last administered on 04/08/16 17:20; Start 04/08/16 at 17:15; Stop 04/08/16 at 18:14; Status DC Insulin Detemir 30 units 30 units Q12HR SQ Last administered on 04/10/16 08:29 ; Start 04/09/16 at 21:00; Stop 04/10/16 at 10:25; Status DC Pharmacy Profile Note 0 ml @ 0 mls/hr UNSCH OTHER ; Start 04/09/16 at 10:30; Stop 04/12/16 at 13:55; Status DC Vancomycin HCl/ Sodium Chloride (Vancomycin Inj/ NS 500 ml Inj) 515 ml @ 257.5 mls/ hr Q12H IV Last administered on 04/10/16 11:16; Start 04/09/16 at 12:00; Stop 04/10/16 at 13:51; Status DC Miscellaneous Information SPECIFIC LAB TO BE DRAWN:[facility]... ONCE ONCE XX ; Start 04/10/16 at 11:45; Stop 04/10/16 at 11:46; Status DC Insulin Detemir 35 units 35 units Q12HR SQ Last administered on 04/11/16 08:07 ; Start 04/10/16 at 21:00; Stop 04/11/16 at 09:15; Status DC Vancomycin HCl/ Sodium Chloride (Vancomycin Inj/ NS 500 ml Inj) 520 ml @ 260 mls/hr Q12H IV Last administered on 04/12/16 08:14; Start 04/10/16 at 20:00; Stop 04/12/16 at 13:55; Status DC Miscellaneous Information SPECIFIC LAB TO BE ISHAAN... ONCE ONCE XX Last administered on 04/12/16 07:45; Start 04/12/16 at 07:45; Stop 04/12/16 at 07:46; Status DC Insulin Detemir (Levemir Inj) 45 units Q12HR SQ Last administered on 04/23/16 08:29; Start 04/11/16 at 21:00; Stop 04/23/16 at 13:24; Status DC Metoclopramide HCl 10 mg 10 mg Q8HR IV PUSH Last administered on 05/25/16 06: 05; Start 04/11/16 at 14:00; Stop 05/25/16 at 12:09; Status DC Sodium Chloride (NS 1000 ml Inj) 2,000 ml @ 0 mls/hr NOW ONCE IV Last administered on 04/11/16 21:01; Start 04/11/16 at 21:00; Stop 04/11/16 at 21:01; Status DC Miscellaneous Information SPECIFIC LAB TO BE DRAWN:VANCOMYCIN TROUGH DATE TO... ONCE ONCE XX ; Start 04/13/16 at 19:45; Stop 04/13/16 at 19:46; Status Cancel Furosemide 20 mg 20 mg Q6H IV PUSH Last administered on 04/16/16 08:40; Start 04/12/16 at 15:00; Stop 04/16/16 at 09:25; Status DC Epoprostenol Sodium 30 ml/ Sodium Chloride 67.5 ml @ 8 mls/hr Q8H NEB ; Start 04/15/16 at 10:00; Stop 04/15/16 at 10:00; Status DC Epoprostenol Sodium/Sodium Chloride (Flolan (30,000 Ng/ml) Neb/NS Inj) 100 ml @ 8 mls/hr Q8H NEB Last administered on 04/18/16 02:09; Start 04/15/16 at 10:00 ; Stop 04/18/16 at 10:15; Status DC Furosemide (Lasix Inj) 20 mg Q8H IV PUSH Last administered on 04/23/16 08:31; Start 04/16/16 at 17:00; Stop 04/23/16 at 13:44; Status DC Methylprednisolone Sodium Succinate 40 mg 40 mg DAILY IV PUSH Last administered on 05/02/16 08:11; Start 04/18/16 at 09:00; Stop 05/02/16 at 08:39; Status DC Epoprostenol Sodium 25 ml/ Sodium Chloride 100 ml @ 8 mls/hr Q8H NEB Last administered on 04/19/16 13:12; Start 04/18/16 at 15:00; Stop 04/19/16 at 15:59 ; Status DC Vancomycin HCl 1500 mg/Sodium Chloride 515 ml @ 257.5 mls/ hr ONCE ONCE IV Last administered on 04/19/16 13:45; Start 04/19/16 at 13:00; Stop 04/19/16 at 14:59; Status DC Epoprostenol Sodium 12.5 ml/ Sodium Chloride 100 ml @ 8 mls/hr Q8H NEB Last administered on 04/20/16 00:29; Start 04/19/16 at 16:00; Stop 04/20/16 at 15:11 ; Status DC Pharmacy Profile Note 0 ml @ 0 mls/hr UNSCH OTHER ; Start 04/20/16 at 14:15; Stop 04/29/16 at 10:33; Status DC Vancomycin HCl/ Sodium Chloride (Vancomycin Inj/ NS 500 ml Inj) 520 ml @ 250 mls/hr Q12H IV Last administered on 04/24/16 05:53; Start 04/20/16 at 18:00; Stop 04/24/16 at 09:15; Status DC Miscellaneous Information SPECIFIC LAB TO BE DRAWN:VANCO TROUGH DATE TO... ONCE ONCE XX Last administered on 04/22/16 05:45; Start 04/22/16 at 05:45; Stop 04/22/16 at 05:46; Status DC Potassium Bicarb/ Potassium Chloride (K-Lyte Cl Eff) 25 meq Q12HR PO Last administered on 04/28/16 07:49; Start 04/21/16 at 21:00; Stop 05/27/16 at 08:44 ; Status DC Artificial Tears (Tears Naturale Opth Soln) 1 drop Q4H EACH EYE Last administered on 07/11/16 17:30; Start 04/21/16 at 18:00 Water (Free Water) 200 ml Q6HR G-TUBE Last administered on 04/30/16 12:00; Start 04/22/16 at 18:00; Stop 05/01/16 at 17:19; Status DC Albuterol/ Ipratropium (Duoneb Neb) 1 ampule Q6HR NEB NEB Last administered on 04/27/16 08:03; Start 04/23/16 at 16:00; Stop 04/27/16 at 16:00; Status DC Albuterol/ Ipratropium (Duoneb Neb) 1 ampule Q2HR NEB PRN NEB [id number] Last administered on 05/11/16 15:54; Start 04/23/16 at 13:15; Stop 05/17/16 at 20:14 ; Status DC Insulin Detemir (Levemir Inj) 55 units Q12HR SQ Last administered on 04/24/16 08:34; Start 04/23/16 at 21:00; Stop 04/24/16 at 12:17; Status DC Polyethylene Glycol (Miralax) 17 gm BID PO Last administered on 07/01/16 20:31 ; Start 04/24/16 at 09:00; Stop 07/07/16 at 10:55; Status DC Furosemide 20 mg 20 mg BID IV PUSH Last administered on 04/28/16 07:50; Start 04/23/16 at 21:00; Stop 04/28/16 at 11:08; Status DC Vancomycin HCl/ Sodium Chloride (Vancomycin Inj/ NS 500 ml Inj) 515 ml @ 257.5 mls/ hr Q12H IV Last administered on 04/28/16 11:59; Start 04/24/16 at 23:00; Stop 04/28/16 at 14:04; Status DC Miscellaneous Information SPECIFIC LAB TO BE .. ONCE ONCE XX Last administered on 04/25/16 22:45; Start 04/25/16 at 22:45; Stop 04/25/16 at 22:46 ; Status DC Insulin Detemir (Levemir Inj) 65 units Q12HR SQ Last administered on 04/25/16 09:00; Start 04/24/16 at 21:00; Stop 04/25/16 at 15:10; Status DC Polyethylene Glycol (Miralax) 17 gm ONCE ONCE PO Last administered on 16:21; Start 04/25/16 at 15:15; Stop 04/25/16 at 15:16; Status DC Polyethylene Glycol (Miralax) 17 gm DAILY PO ; Start 04/26/16 at 09:00; Stop at 11:33; Status DC Mineral Oil (Mineral Oil Liq) 15 ml ONCE ONCE PO Last administered on 16:21; Start 04/25/16 at 16:00; Stop 04/25/16 at 16:01; Status DC Potassium Chloride (KCl 40 Meq/30 ml Liq) 40 meq ONCE ONCE PO Last administered on 04/25/16 16:21; Start 04/25/16 at 15:15; Stop 04/25/16 at 15:16 ; Status DC Insulin Detemir (Levemir Inj) 75 units Q12HR SQ Last administered on 04/26/16 09:13; Start 04/25/16 at 21:00; Stop 04/26/16 at 14:43; Status DC Methylnaltrexone [place] (Relistor Inj) 12 mg ONCE ONCE SQ Last administered on 04/25/16 16:22; Start 04/25/16 at 16:00; Stop 04/25/16 at 16:01; Status DC Miscellaneous Information SPECIFIC LAB TO BE DRAWN:VANCO TROUGH DATE TO BE . ONCE ONCE XX Last administered on 04/28/16 10:45; Start 04/28/16 at 10: 45; Stop 04/28/16 at 10:46; Status DC Methylnaltrexone [place] (Relistor Inj) 12 mg ONCE ONCE SQ Last administered on 04/26/16 15:18; Start 04/26/16 at 14:30; Stop 04/26/16 at 14:56; Status DC Lactulose (Lactulose Liq) 30 ml QID PO Last administered on 04/28/16 07:47; Start 04/26/16 at 18:00; Stop 05/27/16 at 08:44; Status DC Mineral Oil (Mineral Oil Liq) 15 ml ONCE ONCE PO Last administered on 15:19; Start 04/26/16 at 14:30; Stop 04/26/16 at 14:56; Status DC Sennosides (Senna Liq) 8.8 mg ONCE ONCE PO Last administered on 04/26/16 15: 25; Start 04/26/16 at 14:30; Stop 04/26/16 at 14:56; Status DC Magnesium Citrate (Citroma Liq) 300 ml ONCE ONCE PO Last administered on 15:25; Start 04/26/16 at 14:45; Stop 04/26/16 at 14:56; Status DC Potassium Chloride (KCl 40 Meq/30 ml Liq) 40 meq ONCE ONCE PO Last administered on 04/26/16 15:25; Start 04/26/16 at 14:45; Stop 04/26/16 at 14:56 ; Status DC Insulin Detemir (Levemir Inj) 80 units Q12HR SQ Last administered on 04/28/16 07:49; Start 04/26/16 at 21:00; Stop 04/28/16 at 11:19; Status DC Nystatin 1 applic 1 applic Q12HR TOPICAL Last administered on 07/11/16 20:28; Start 04/27/16 at 11:00 Aztreonam/Sodium Chloride (Azactam Inj/NS Inj) 100 ml @ 200 mls/hr Q8H IV Last administered on 04/29/16 02:39; Start 04/27/16 at 10:00; Stop 04/29/16 at 10:34; Status DC Potassium Chloride (KCl 40 Meq/30 ml Liq) 40 meq ONCE ONCE PO Last administered on 04/27/16 13:00; Start 04/27/16 at 13:00; Stop 04/27/16 at 13:02 ; Status DC Albuterol/ Ipratropium (Duoneb Neb) 1 ampule Q4HR NEB NEB Last administered on 05/02/16 07:53; Start 04/28/16 at 12:00; Stop 05/02/16 at 12:00; Status DC Sodium Chloride 2 ml 2 ml Q8HR NEB NEB Last administered on 05/01/16 07:21; Start 04/28/16 at 16:00; Stop 05/01/16 at 15:59; Status DC Sodium Chloride/ Sterile Water (Sodium Chloride 23.4% Inj/Sterile Water For Inj ) 1,009.625 ml @ 84 mls/hr Q12H2M IV Last administered on 04/28/16 13:23; Start 04/28/16 at 13:00; Stop 04/29/16 at 01:01; Status DC Insulin Detemir 70 units 70 units Q12HR SQ Last administered on 05/03/16 08:08 ; Start 04/28/16 at 21:00; Stop 05/05/16 at 17:18; Status DC Vancomycin HCl/ Sodium Chloride (Vancomycin Inj/ NS 250 ml Inj) 262.5 ml @ 250 mls/hr Q12H IV Last administered on 04/29/16 00:18; Start 04/28/16 at 23:00; Stop 04/29/16 at 10:34; Status DC Miscellaneous Information SPECIFIC LAB TO BE ... ONCE ONCE XX ; Start at 10:45; Stop 04/30/16 at 10:45; Status DC Clindamycin Phosphate/Sodium Chloride (Cleocin Inj/NS Inj) 104 ml @ 208 mls/hr Q8H IV Last administered on 05/06/16 15:52; Start 04/29/16 at 12:00; Stop at 12:00; Status DC Lidocaine/ Epinephrine (Xylocaine-Epi 1%-1:100,000 Inj) 30 ml STK-MED ONCE .ROUTE ; Start 04/30/16 at 13:00; Stop 04/30/16 at 13:01; Status DC Fentanyl Citrate 250 mcg 250 mcg STK-MED ONCE .ROUTE ; Start 04/30/16 at 15:28; Stop 04/30/16 at 15:29; Status DC Dexmedetomidine HCl (Precedex Inj) 50 ml @ 0 mls/hr TITRATE IV Last administered on 05/02/16 18:32; Start 05/01/16 at 17:00; Stop 05/02/16 at 19:00; Status DC Water (Free Water) 100 ml Q6HR G-TUBE Last administered on 06/09/16 12:00; Start 05/01/16 at 18:00; Stop 06/10/16 at 15:51; Status DC Fentanyl (Duragesic 25 Mcg Patch.72 Hr) 1 patch Q3D TD Last administered on 09:05; Start 05/02/16 at 09:00; Stop 06/19/16 at 08:05; Status DC Miscellaneous Information 1 Q3D T-DERMAL Last administered on 06/13/16 08:23; Start 05/05/16 at 09:00; Stop 06/19/16 at 08:05; Status DC Oxycodone HCl (Roxicodone Intensol Liq) 5 mg Q6H PRN PO PAIN SCALE 7 TO 10 Last administered on 05/23/16 05:54; Start 05/02/16 at 08:45; Stop 06/05/16 at 22 :00; Status DC Acetaminophen/ Hydrocodone Bitart (Springs 5-325 Mg) 1 tab Q6H PO Last administered on 05/06/16 15:52; Start 05/02/16 at 09:00; Stop 05/06/16 at 18:52; Status DC Methylprednisolone Sodium Succinate (SoluMEDROL INJ) 30 mg DAILY IV PUSH Last administered on 05/04/16 07:55; Start 05/03/16 at 09:00; Stop 05/04/16 at 10:09; Status DC Midazolam HCl (Versed Inj) 5 mg STK-MED ONCE .ROUTE Last administered on 16:18; Start 05/02/16 at 16:14; Stop 05/02/16 at 16:15; Status DC Lorazepam (Ativan Inj) 2 mg STK-MED ONCE .ROUTE Last administered on 05/02/16 16:19; Start 05/02/16 at 16:15; Stop 05/02/16 at 16:16; Status DC Midazolam HCl (Versed Inj) 5 mg NOW ONCE IV Last administered on 05/02/16 16: 30; Start 05/02/16 at 16:30; Stop 05/02/16 at 16:31; Status DC Lorazepam 2 mg 2 mg Q4H PRN IVP AGITATION Last administered on 06/13/16 21:22 ; Start 05/02/16 at 16:30; Stop 06/19/16 at 08:05; Status DC Dexmedetomidine HCl/Sodium Chloride (Precedex Inj/NS 250 ml Inj) 260 ml @ 0 mls/ hr TITRATE IV Last administered on 05/04/16 09:53; Start 05/02/16 at 19:01; Stop 05/04/16 at 16:31; Status DC Hydralazine HCl (Apresoline Inj) 10 mg Q4H PRN IV PUSH SBP >165 Last administered on 05/03/16 06:20; Start 05/02/16 at 22:00; Stop 06/05/16 at 20:34; Status DC Propofol (Diprivan 200 Mg/20 ml Inj) 170 mg STK-MED ONCE IV ; Start 05/03/16 at 15:06; Stop 05/03/16 at 15:07; Status DC Quetiapine Fumarate (SEROquel) 25 mg BID PO Last administered on 06/21/16 10: 58; Start 05/04/16 at 09:00; Stop 06/21/16 at 13:25; Status DC Methylprednisolone Sodium Succinate (SoluMEDROL INJ) 20 mg DAILY IV PUSH Last administered on 05/11/16 08:02; Start 05/05/16 at 09:00; Stop 05/12/16 at 09:13 ; Status DC Fentanyl Citrate (fentaNYL INJ) 50 mcg NOW ONCE IV Last administered on 01:03; Start 05/05/16 at 01:00; Stop 05/05/16 at 01:02; Status DC Metoprolol Tartrate (Lopressor Inj) 2.5 mg NOW ONCE IV PUSH Last administered on 05/05/16 04:17; Start 05/05/16 at 04:00; Stop 05/05/16 at 04:01; Status DC Ondansetron HCl (Zofran Inj) 4 mg Q6H PRN IV NAUSEA OR VOMITING; Start 05/05/16 at 06:45 Bumetanide (Bumex Inj) 0.5 mg DAILY IV PUSH Last administered on 05/24/16 09: 25; Start 05/05/16 at 09:00; Stop 05/24/16 at 10:39; Status DC Albuterol/ Ipratropium (Duoneb Neb) 1 ampule TID NEB INH Last administered on 05/09/16 13:05; Start 05/05/16 at 14:00; Stop 05/09/16 at 14:00; Status DC Insulin Detemir (Levemir Inj) 50 units Q12HR SQ Last administered on 05/11/16 20:54; Start 05/05/16 at 21:00; Stop 05/13/16 at 13:50; Status DC Acetaminophen/ Hydrocodone Bitart (Springs 5-325 Mg) 1 tab Q12HR PO Last administered on 06/18/16 19:40; Start 05/06/16 at 21:00; Stop 06/19/16 at 08:05 ; Status DC Propofol 200 mg 200 mg STK-MED ONCE IV ; Start 04/30/16 at 15:12; Stop 05/07/16 at 15:12; Status DC Parenteral Electrolytes (Normosol R Inj) 2,000 ml @ As Directed STK-MED ONCE IV ; Start 04/30/16 at 15:12; Stop 05/07/16 at 15:12; Status DC Potassium Chloride (KCl) 10 meq DAILY PO Last administered on 07/06/16 08:48; Start 05/10/16 at 09:30; Stop 07/08/16 at 09:34; Status DC Simethicone (Phazyme Chew) 125 mg DAILY PRN PO gas Last administered on 15:00; Start 05/11/16 at 15:00 Insulin Detemir (Levemir Inj) 35 units Q12HR SQ Last administered on 05/30/16 20:26; Start 05/13/16 at 21:00; Stop 06/05/16 at 22:00; Status DC Dextrose (D50w (Vial) Inj) 25 ml UNSCH PRN IV PUSH HYPOGLYCEMIA-SEE COMMENTS; Start 05/13/16 at 14:00; Stop 05/31/16 at 21:54; Status DC Glucagon (Glucagon Inj) 1 mg UNSCH PRN OTHER HYPOGLYCEMIA-SEE COMMENTS; Start 05/13/16 at 14:00; Stop 05/31/16 at 21:54; Status DC Insulin Human Regular (NovoLIN R SUPPLEMENTAL SCALE) 1 ACHS SLIDING SCALE SQ Last administered on 05/25/16 06:19; Start 05/13/16 at 16:00; Stop 05/25/16 at 12:14; Status DC Silver Sulfadiazine (Silvadene 1% Cream (400 Gm)) 1 applic DAILY TOPICAL Last administered on 07/11/16 08:28; Start 05/16/16 at 11:00 Pregabalin (Lyrica) 25 mg DAILY PO Last administered on 05/19/16 08:22; Start 05/17/16 at 11:45; Stop 05/20/16 at 10:29; Status DC Ipratropium [place] (Atrovent Neb) 0.5 mg Q2HR NEB PRN NEB wheezing Last administered on 05/27/16 00:28; Start 05/17/16 at 21:00 Diltiazem HCl (Cardizem) 30 mg ONCE ONCE PO Last administered on 05/17/16 22: 44; Start 05/17/16 at 22:45; Stop 05/17/16 at 22:46; Status DC Potassium Chloride (KCl) 40 meq ONCE ONCE PO Last administered on 05/17/16 22 :44; Start 05/17/16 at 22:45; Stop 05/17/16 at 22:46; Status DC Pregabalin (Lyrica) 50 mg DAILY PO Last administered on 06/18/16 08:33; Start 05/21/16 at 09:00; Stop 06/19/16 at 08:05; Status DC Baclofen (Lioresal) 10 mg Q12HR PO Last administered on 06/18/16 19:39; Start 05/24/16 at 10:45; Stop 06/19/16 at 08:05; Status DC Bumetanide (Bumetanide) 0.5 mg ONCE ONCE PO Last administered on 05/25/16 09: 21; Start 05/25/16 at 09:00; Stop 05/25/16 at 09:01; Status DC Miscellaneous (Pill Splitter) 1 ea UNSCH PRN OTHER SEE LABEL COMMENTS; Start at 10:45 Pantoprazole Sodium (Protonix) 40 mg DAILY PO Last administered on 07/11/16 08 :27; Start 05/26/16 at 09:00 Insulin Human Regular (NovoLIN R SUPPLEMENTAL SCALE) 1 Q12HR SQ Last administered on 05/26/16 22:40; Start 05/25/16 at 19:00; Stop 05/27/16 at 08:44 ; Status DC Metoclopramide HCl (Reglan) 10 mg Q8HR G-TUBE Last administered on 06/02/16 14: 43; Start 05/25/16 at 14:00; Stop 06/02/16 at 14:49; Status DC Albuterol Sulfate 2.5 mg 2.5 mg ONCE ONCE NEB Last administered on 05/27/16 00:45; Start 05/27/16 at 00:45; Stop 05/27/16 at 00:46; Status DC Sodium Chloride (NS 1000 ml Inj) 999 ml @ 0 mls/hr BOLUS ONCE IV Last administered on 05/27/16 02:01; Start 05/27/16 at 02:00; Stop 05/27/16 at 04:31 ; Status DC Adenosine (Adenocard Inj) 6 mg NOW ONCE IV PUSH Last administered on 02:01; Start 05/27/16 at 02:01; Stop 05/27/16 at 04:31; Status DC Adenosine (Adenocard Inj) 12 mg NOW ONCE IV PUSH Last administered on 02:11; Start 05/27/16 at 02:11; Stop 05/27/16 at 04:31; Status DC Insulin Human Regular 1 1 Q4HR SQ ; Start 05/27/16 at 12:00; Stop 05/28/16 at 01 :44; Status DC Sodium Chloride (NS 1000 ml Inj) 1,000 ml @ 100 mls/hr Q10H IV Last administered on 05/27/16 19:00; Start 05/27/16 at 09:00; Stop 05/28/16 at 04:59 ; Status DC Albuterol/ Ipratropium (Duoneb Neb) 1 ampule Q6HR NEB NEB Last administered on 05/31/16 07:29; Start 05/27/16 at 10:00; Stop 05/31/16 at 10:00; Status DC Insulin Human Regular (NovoLIN R SUPPLEMENTAL SCALE) 1 BID@07,15 SQ Last administered on 05/28/16 14:34; Start 05/28/16 at 07:00; Stop 05/31/16 at 21:53 ; Status DC Adenosine (Adenocard Inj) 6 mg STK-MED ONCE IV PUSH ; Start 05/27/16 at 05:00; Stop 05/28/16 at 12:54; Status DC Dextrose (D50w (Vial) Inj) 25 ml UNSCH PRN IV PUSH HYPOGLYCEMIA-SEE COMMENTS; Start 05/31/16 at 22:00 Glucagon (Glucagon Inj) 1 mg UNSCH PRN OTHER HYPOGLYCEMIA-SEE COMMENTS; Start 05/31/16 at 22:00; Stop 06/19/16 at 08:05; Status DC Insulin Aspart (NovoLOG SUPPLEMENTAL SCALE) 1 ACHS SLIDING SCALE SQ Last administered on 06/12/16 18:00; Start 06/01/16 at 07:00; Stop 06/22/16 at 16:52 ; Status DC Albuterol/ Ipratropium (Duoneb Neb) 1 ampule Q6HR NEB NEB Last administered on 06/06/16 08:29; Start 06/02/16 at 16:00; Stop 06/06/16 at 10:56; Status DC Albuterol/ Ipratropium (Duoneb Neb) 1 ampule Q2HR NEB PRN NEB dyspnea Last administered on 07/11/16 12:19; Start 06/02/16 at 15:00 Insulin Detemir 5 units 5 units HS SQ Last administered on 07/11/16 20:30; Start 06/06/16 at 21:00 Propofol (Diprivan 1000 Mg/100ml Inj) 100 ml @ As Directed STK-MED ONCE .ROUTE ; Start 06/12/16 at 15:40; Stop 06/12/16 at 15:41; Status DC Midazolam HCl (Versed Inj) 5 mg STK-MED ONCE .ROUTE ; Start 06/12/16 at 15:41; Stop 06/12/16 at 15:42; Status DC Chlorhexidine Gluconate 15 ml 15 ml BID@08,20 MT ; Start 06/12/16 at 20:00; Stop 06/12/16 at 20:00; Status DC Propofol 100 ml @ 0 mls/hr TITRATE IV Last administered on 06/13/16 17:09; Start 06/12/16 at 17:45; Stop 06/19/16 at 08:05; Status DC Fentanyl Citrate 250 ml @ 0 mls/hr TITRATE IV Last administered on 06/12/16 20 :08; Start 06/12/16 at 17:45; Stop 06/19/16 at 08:06; Status DC Levofloxacin/ Dextrose 150 ml @ 100 mls/hr Q24H IV Last administered on 13:05; Start 06/13/16 at 14:00; Stop 06/19/16 at 10:06; Status DC Sodium Chloride 1,000 ml @ 999 mls/hr BOLUS ONCE IV Last administered on 06/13 14:43; Start 06/13/16 at 13:30; Stop 06/13/16 at 14:30; Status DC Sodium Chloride 1,000 ml @ 999 mls/hr BOLUS ONCE IV Last administered on 06/13 14:43; Start 06/13/16 at 13:30; Stop 06/13/16 at 14:30; Status DC Potassium Chloride 10 meq/ Sodium Chloride 1,005 ml @ 75 mls/hr [id number] IV Last administered on 06/22/16 00:24; Start 06/13/16 at 15:00; Stop 06/22/16 at 18:02; Status DC Sodium Chloride 1,000 ml @ 0 mls/hr ONCE ONCE IV Last administered on 08:48; Start 06/15/16 at 07:30; Stop 06/15/16 at 07:31; Status DC Cefazolin Sodium/ Dextrose 50 ml @ 100 mls/hr Q8H IV Last administered on 06/15 12:48; Start 06/15/16 at 12:00; Stop 06/15/16 at 13:13; Status DC Vancomycin HCl 1500 mg/Sodium Chloride 515 ml @ 257.5 mls/ hr ONCE ONCE IV Last administered on 06/15/16 15:12; Start 06/15/16 at 14:00; Stop 06/15/16 at 15:59; Status DC Pharmacy Profile Note 0 ml @ 0 mls/hr UNSCH OTHER ; Start 06/15/16 at 13:00; Stop 06/19/16 at 10:06; Status DC Aztreonam 1000 mg/ Sodium Chloride 100 ml @ 200 mls/hr Q8H IV Last administered on 06/19/16 05:21; Start 06/15/16 at 13:00; Stop 06/19/16 at 10:06 ; Status DC Vancomycin HCl/ Sodium Chloride (Vancomycin Inj/ NS 500 ml Inj) 515 ml @ 257.5 mls/ hr Q12H IV Last administered on 06/17/16 02:49; Start 06/16/16 at 02:00; Stop 06/17/16 at 08:43; Status DC Miscellaneous Information SPECIFIC LAB TO BE DRAWN:VANCO TROUGH DATE TO BE DR... ONCE ONCE .XX Last administered on 06/17/16 01:45; Start 06/17/16 at 01 :45; Stop 06/17/16 at 01:46; Status DC Vancomycin HCl/ Sodium Chloride (Vancomycin Inj/ NS 500 ml Inj) 517.5 ml @ 257.5 mls/ hr Q12H IV Last administered on 06/19/16 03:33; Start 06/17/16 at 14:00; Stop 06/19/16 at 08:51; Status DC Miscellaneous Information SPECIFIC LAB TO BE DRAWN:VANCOMY... ONCE ONCE .XX Last administered on 06/19/16 02:04; Start 06/19/16 at 01:45; Stop 06/19/16 at 01:46; Status DC Miscellaneous Information D/C ICU ELECTROLYTE ORDERS... UNSCH PRN .XX SEE DOSE INSTRUCTIONS; Start 06/17/16 at 10:30; Status Cancel Miscellaneous Information ICU - CALL ORDERING PHYSIC... UNSCH PRN .XX SEE DOSE INSTRUCTIONS; Start 06/17/16 at 10:30; Status Cancel Potassium Chloride (KCl 40 Meq Premix Inj) 100 ml @ 25 mls/hr UNSCH PRN IV ELECTROLYTE REPLACEMENT Last administered on 06/17/16 17:40; Start 06/17/16 at 10:30; Stop 07/08/16 at 09:34; Status DC Potassium Bicarb/ Potassium Chloride 50 meq 50 meq UNSCH PRN PO ELECTROLYTE REPLACEMENT; Start 06/17/16 at 10:30; Status Cancel Potassium Chloride 100 ml @ 50 mls/hr UNSCH PRN IV ELECTROLYTE REPLACEMENT; Start 06/17/16 at 10:30; Status Cancel Magnesium Sulfate 4 gm/Sodium Chloride 108 ml @ 54 mls/hr UNSCH PRN IV ELECTROLYTE REPLACEMENT; Start 06/17/16 at 10:30; Status Cancel Magnesium Sulfate/ Sodium Chloride (Magnesium Sulfate Inj/NS Inj) 104 ml @ 52 mls/hr UNSCH PRN IV ELECTROLYTE REPLACEMENT; Start 06/17/16 at 10:30; Status Cancel Magnesium Oxide 800 mg 800 mg UNSCH PRN PO ELECTROLYTE REPLACEMENT; Start 06/17 at 10:30; Status Cancel Sodium Phosphate/ Sodium Chloride (Sodium Phosphate Inj/NS 250 ml Inj) 260 ml @ 43.333 mls/ hr UNSCH PRN IV ELECTROLYTE REPLACEMENT; Start 06/17/16 at 10:30 ; Status Cancel Potassium Phosphate 2000 mg 2,000 mg UNSCH PRN PO ELECTROLYTE REPLACEMENT; Start 06/17/16 at 10:30; Status Cancel Potassium Phosphate/Sodium Chloride (Potassium Phosphate Inj/NS 250 ml Inj) 260 ml @ 43.333 mls/ hr UNSCH PRN IV ELECTROLYTE REPLACEMENT; Start 06/17/16 at 10 :30; Status Cancel Baclofen (Lioresal) 5 mg Q12HR PO Last administered on 06/21/16 10:58; Start 06/19/16 at 09:00; Stop 06/21/16 at 13:25; Status DC Pregabalin (Lyrica) 150 mg DAILY PO Last administered on 06/21/16 10:58; Start 06/19/16 at 09:00; Stop 06/21/16 at 13:25; Status DC Tizanidine HCl (Zanaflex) 2 mg Q12HR PO Last administered on 06/21/16 10:58; Start 06/19/16 at 09:00; Stop 06/21/16 at 13:25; Status DC Oxycodone HCl 2.5 mg 2.5 mg Q6H PRN PO pain 1-7 Last administered on 06/24/16 13:00; Start 06/19/16 at 08:15; Stop 06/24/16 at 16:18; Status DC Vancomycin HCl/ Sodium Chloride (Vancomycin Inj/ NS 500 ml Inj) 520 ml @ 257.5 mls/ hr Q12H IV ; Start 06/19/16 at 14:00; Stop 06/19/16 at 14:00; Status DC Miscellaneous Information SPECIFIC LAB TO BE DRAWN:VANCOMYCIN TROUGH DATE TO... ONCE ONCE .XX ; Start 06/21/16 at 01:45; Stop 06/21/16 at 01:45; Status DC Cefepime HCl 2000 mg/Sodium Chloride 100 ml @ 200 mls/hr Q12H IV Last administered on 06/26/16 00:00; Start 06/19/16 at 12:00; Stop 06/26/16 at 10:31 ; Status DC Norepinephrine Bitartrate 250 ml @ As Directed STK-MED ONCE IV Last administered on 06/19/16 16:09; Start 06/19/16 at 13:51; Stop 06/19/16 at 13:52 ; Status DC Sodium Chloride 1,000 ml @ 0 mls/hr BOLUS STAT IV ; Start 06/19/16 at 17:58; Stop 06/19/16 at 17:59; Status DC Fluconazole/ Sodium Chloride 200 ml @ 100 mls/hr Q24H IV Last administered on 06/22/16 09:12; Start 06/20/16 at 11:00; Stop 06/22/16 at 14:07; Status DC Vancomycin HCl 1500 mg/Sodium Chloride 515 ml @ 257.5 mls/ hr ONCE ONCE IV ; Start 06/20/16 at 11:00; Stop 06/20/16 at 11:26; Status DC Pharmacy Profile Note 0 ml @ 0 mls/hr UNSCH OTHER ; Start 06/20/16 at 11:00; Stop 06/22/16 at 14:07; Status DC Vancomycin HCl/ Sodium Chloride (Vancomycin Inj/ NS 500 ml Inj) 520 ml @ 250 mls/hr Q12H IV Last administered on 06/22/16 11:46; Start 06/20/16 at 13:00; Stop 06/22/16 at 14:07; Status DC Miscellaneous Information SPECIFIC LAB TO BE DRAWN:VANCO TROUGH DATE TO... ONCE ONCE .XX Last administered on 06/22/16 00:45; Start 06/22/16 at 00:45; Stop 06/22/16 at 00:46; Status DC Baclofen (Lioresal) 5 mg DAILY PO Last administered on 07/11/16 08:28; Start 06/22/16 at 09:00 Pregabalin (Lyrica) 75 mg Q12HR PO Last administered on 07/11/16 20:28; Start 06/22/16 at 09:00 Miscellaneous Information SPECIFIC LAB TO BE ... ONCE ONCE .XX ; Start 06/23 at 12:45; Stop 06/23/16 at 12:45; Status DC Oxycodone HCl (Roxicodone) 2.5 mg Q4H PRN PO pain 1-6 Last administered on 07/12 05:09; Start 06/24/16 at 17:00 Polyethylene Glycol (Miralax) 17 gm BID PRN PO CONSTIPATION; Start 07/07/16 at 11:00 Propofol (Diprivan 200 Mg/20 ml Inj) 200 mg STK-MED ONCE IV ; Start 06/20/16 at 11:14; Stop 07/10/16 at 11:14; Status DC Ondansetron HCl (Zofran Inj) 4 mg STK-MED ONCE IV PUSH ; Start 06/20/16 at 11:14 ; Stop 07/10/16 at 11:14; Status DC Date of Removal: Jun 29, 2016 A/P Assessment and Plan A/P - Acute respiratory failure mixed - hypercarbic and hypoxemic. - Probable obstructive sleep apnea - Obesity hypoventilation syndrome. - s/p Tracheostomy - On T-piece, O2 sat stable, trach collar, keep O2 sat > 92% - Pulmonary following - Continue DuoNeb treatments. 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 - Currently on Baclofen 5mg daily, Lyrica 75mg bid, with oxycodone 2.5mg po q4h prn pain - Patient now AAOx4. - Diabetes mellitus type 2 with neuropathy - HgbA1c 7.4 in . Goal glucose 140-180. - Continue Levemir 5 units QHS . - Blood glucose well controlled - Continue Accu-cheks bid - continue Lyrica and Baclofen for neuropathy - Nutrition: s/p PEG tube placed initially on 05/[address] Faith - 06/09-pt complains of irritation/drainage/discomfort at PEG insertion site, he is tolerating all meals and medications by mouth - PEG removed 06/[address] Munson - Transaminitis: LFTs improved, abdominal pain resolved. - Liver US shows fatty liver. Small stones or tumefactive sludge adherent to one of the gallbladder arcos. Splenomegaly. 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 -Optifoam in place. -Apply bacitracin. -Wound cultures with normal sherine. -Consult wound care, discussed with Nica from wound care, Cleanse wound with NS and apply nonadhesive foam ag dressing over wound and change every other day and PRN for saturation or dislodgement. on silvadene cream daily. - Morbid Obesity with BMI 51.8 on admission -encouraged weight loss - Left Shoulder Pain: with decreased ROM. Xrays negative for fracture/ dislocations. - continue PT - continue pain control with oxycodone 2.5mg po q4h prn - Placement efforts in progress. Case management assisting. Full code. Lovenox. clinically no change. continue current care. Discharge Planning needs SNF placement. dc planning in progress. Mg Stearns MD July 12, 2016 09:25
[2016-07-12] MEDS: INSULIN DETEMIR 100 UNITS/ML VIAL SQ SCH (20:26)
--- NOTE | 2016-07-12 20:31 | HHI.PR ---
Subjective Remarks 50 YO morbidly obese male s/p RF, Trach On trach collar No distress Objective Vital Signs Vital Signs Date Time Temp Pulse Resp B/P Pulse Ox O2 Delivery O2 Flow Rate FiO2 07/12/16 16:00 98.0 84 20 115/71 97 07/12/16 12:00 98.0 88 20 112/61 93 07/12/16 11:51 79 07/12/16 08:00 97.8 90 20 121/65 92 07/12/16 08:00 98 T-piece 28 07/12/16 07:15 Trach Collar 5.00 28 T-Piece 07/12/16 05:54 98.5 103 18 117/73 94 07/12/16 00:15 98.6 101 20 121/64 96 07/11/16 20:33 99.1 100 20 116/64 92 I/O 07/11/16 07/11/16 07/11/16 07/12/16 07/12/16 07/12/16 07:00 15:00 23:00 07:00 15:00 23:00 Intake Total 1080 ml 240 ml 480 ml Output Total 500 ml 425 ml Balance 1080 ml 240 ml -500 ml 55 ml Intake Oral 1080 ml 240 ml 480 ml IV Total 0 ml Output Urine Total 500 ml 425 ml # Voids 3 # Bowel Movements 1 0 0 Objective Remarks GENERAL: Morbidly obese male trach collar SKIN: Warm and dry. HEAD: Normocephalic. EYES: No scleral icterus. No injection or drainage. NECK: Supple, trachea midline. No JVD or lymphadenopathy. CARDIOVASCULAR: Regular rate and rhythm without murmurs, gallops, or rubs. RESPIRATORY: Breath sounds equal bilaterally. No accessory muscle use. GASTROINTESTINAL: Abdomen soft, non-tender, nondistended. MUSCULOSKELETAL: No cyanosis, or edema. BACK: Nontender without obvious deformity. No CVA tenderness. A/P Assessment and Plan S/P trach ARDS-resolved Pneumonia JACOB PLAN: Trach collar Aerosol nebs Supplement 02 to keep sat >90% cont Abx Musa Key MD July 12, 2016 20:31
[2016-07-13] VITALS (10 sets, daily range): BP systolic 111–122; BP diastolic 59–74; PULSE 81–99; RESP 20; TEMP 97.6–99.1; O2SAT 92–95
[2016-07-13] MEDS: ARTIFICIAL TEARS OPTH SOLN 15 ML BTL EACH EYE SCH ×6 (01:54→22:00)
[2016-07-13] MEDS: ENOXAPARIN SODIUM 40 MG/0.4 ML SYRINGE SQ SCH ×2 (05:32→17:36)
[2016-07-13] MEDS: NYSTATIN 100,000 U/GM PWD 15 GM BTL TOPICAL SCH ×2 (09:00→20:29)
[2016-07-13] MEDS: BETAMETHASONE/CLOTRIMAZOLE CREAM 15 GM TOPICAL SCH ×2 (09:00→20:29)
[2016-07-13] MEDS: SILVER SULFADIAZINE 1% CR 400 GM JAR TOPICAL SCH (09:00)
[2016-07-13] MEDS: SODIUM CHLORIDE 0.9% FLUSH 5 ML FLUSH IVF SCH (09:00)
[2016-07-13] MEDS: DOCUSATE SODIUM 100 MG/10 ML UDC PO SCH ×2 (09:00→20:29)
[2016-07-13] MEDS: BENEPROTEIN POWDER 1 PACK G-TUBE SCH ×3 (09:00→17:36)
[2016-07-13] MEDS: BACLOFEN 10 MG TAB PO SCH (09:29)
[2016-07-13] MEDS: PANTOPRAZOLE SOD 40 MG DELAYED RELEASE TAB PO SCH (09:29)
[2016-07-13] MEDS: PREGABALIN 75 MG CAP PO SCH ×2 (09:30→20:24)
--- NOTE | 2016-07-13 12:18 | HHI.PR ---
Subjective Remarks resting comfortably with no distress. no new complaints. Objective Vitals Vital Signs Date Time Temp Pulse Resp B/P Pulse Ox O2 Delivery O2 Flow Rate FiO2 07/13/16 08:20 95 T-piece 28 07/13/16 08:15 81 07/13/16 08:00 98.0 97 20 111/69 92 07/13/16 07:15 Trach Collar 5.00 28 T-Piece 07/13/16 04:00 97.8 87 20 120/74 93 07/13/16 00:00 97.6 88 20 114/66 93 07/13/16 00:00 Trach Collar 5.00 28 T-Piece 07/12/16 22:00 98 T-piece 5.00 28 07/12/16 20:00 Trach Collar 5.00 28 T-Piece 07/12/16 20:00 97.8 85 20 113/58 96 07/12/16 20:00 90 07/12/16 16:00 98.0 84 20 115/71 97 I/O 07/12/16 07/12/16 07/12/16 07/13/16 07/13/16 07/13/16 07:00 15:00 23:00 07:00 15:00 23:00 Intake Total 480 ml 240 ml Output Total 500 ml 425 ml 500 ml Balance -500 ml 55 ml -260 ml Intake Oral 480 ml 240 ml IV Total 0 ml Output Urine Total 500 ml 425 ml 500 ml # Bowel Movements 0 0 Imaging Last Impressions Chest X-Ray 06/30/16 0600 Signed Impressions: Service Date/Time: Thursday, June 30, 2016 06:07 - CONCLUSION: No significant change. Mild bilateral perihilar and basilar consolidation again noted. Ubaldo Ortiz MD Shoulder X-Ray 06/28/16 0000 Signed Impressions: Service Date/Time: June 15:12 - CONCLUSION: 1. Limited but negative examination of the shoulder. Kyaw Rojo MD Abdomen X-Ray 06/19/16 0000 Signed Impressions: Service Date/Time: Sunday, June 19, 2016 10:43 - CONCLUSION: Gastric tube tip does not cross the diaphragm and the side port is approximately 8 cm above the diaphragm. Chano Goodwin MD Lower Extremity Ultrasound 06/04/16 0000 Signed Impressions: Service Date/Time: Saturday, June 04, 2016 14:54 - CONCLUSION: 1. No DVT identified. Dc Barton MD Liver Ultrasound 05/09/16 0000 Signed Impressions: Service Date/Time: Monday, May 09, 2016 22:28 - CONCLUSION: 1. Enlarged, fatty liver. 2. Small stones or tumefactive sludge adherent to one of the gallbladder arcos. 3. Splenomegaly. 4. Pancreas is obscured by overlying bowel gas and patient's body habitus. Arthur Kennedy MD Chest CT 03/28/16 0836 Signed Impressions: Service Date/Time: Monday, March 28, 2016 09:57 - CONCLUSION: Development areas of air bronchograms and consolidation more prominent in the right and left posterior basilar segments of the lower lobes. ET tube above the chanelle. Bernard Hartman MD CT Angiography 03/24/16 1121 Signed Impressions: Service Date/Time: Thursday, March 24, 2016 12:47 - CONCLUSION: 1. There is respiratory motion artifact but no PE is identified through most of the segmental level pulmonary arteries. 2. Mildly enlarged main pulmonary artery may indicate pulmonary arterial hypertension. 3. 11 mm left lower lobe noncalcified pulmonary nodule. Suggest correlation with any prior imaging studies that could confirm longer-term stability. If none are available consider short-term followup noncontrast chest CT in approximately 3 months. Ubaldo Rodas MD Objective Remarks GENERAL: in no apparent distress. Neck; trach in place CARDIOVASCULAR: Regular rate and regular rhythm without murmurs, gallops, or rubs. RESPIRATORY: Clear to auscultation. Breath sounds equal bilaterally. No wheezes , rales, or rhonchi. GASTROINTESTINAL: Abdomen soft, non-tender, nondistended. Normal, active bowel sounds MUSCULOSKELETAL: Extremities without clubbing, cyanosis, or edema. NEURO: Alert & Oriented x4 to person, place, time, situation. Moves all ext x4 Procedures 04/30/16 - tracheostomy by Dr. Reyes 05/03/16 - EGD with PEG placement by Dr. Faith 06/09/16 - PEG removal 06/21/16- repeat tracheostomy by Dr. Cuellar Medications and IVs Current Medications IV Flush (NS Flush) 2 ml UNSCH PRN IVF FLUSH AFTER USING IV ACCESS Last administered on 05/23/16 05:55; Start 03/24/16 at 11:30 Iohexol (Omnipaque 350 Inj) 89 ml STK-MED ONCE IV Last administered on 13:08; Start 03/24/16 at 13:08; Stop 03/24/16 at 13:09; Status DC Albuterol/ Ipratropium (Duoneb Neb) 1 ampule Q6HR NEB NEB Last administered on 04/04/16 07:42; Start 03/24/16 at 17:00; Stop 04/04/16 at 07:43; Status DC Dextrose (D50w (Vial) Inj) 25 ml UNSCH PRN IV PUSH HYPOGLYCEMIA-SEE COMMENTS; Start 03/24/16 at 16:30; Stop 03/31/16 at 11:22; Status DC Glucagon (Glucagon Inj) 1 mg UNSCH PRN OTHER HYPOGLYCEMIA-SEE COMMENTS; Start 03/24/16 at 16:30; Stop 03/31/16 at 11:22; Status DC Insulin Human Regular (NovoLIN R SUPPLEMENTAL SCALE) 1 ACHS SLIDING SCALE SQ Last administered on 03/31/16 06:09; Start 03/24/16 at 21:00; Stop 03/31/16 at 11:16; Status DC Albuterol/ Ipratropium (Duoneb Neb) 1 ampule Q2HR NEB PRN NEB WHEEZING AND SOB Last administered on 04/20/16 08:10; Start 03/24/16 at 16:45; Stop 04/23/16 at 13:22; Status DC Enoxaparin Sodium (Lovenox Inj) 40 mg Q24H SQ Last administered on 03/25/16 17 :00; Start 03/24/16 at 17:00; Stop 03/26/16 at 16:40; Status DC Pantoprazole Sodium (Protonix) 40 mg DAILY PO Last administered on 03/26/16 08 :35; Start 03/25/16 at 09:00; Stop 03/26/16 at 16:40; Status DC Influenza Virus Vaccine (Flu (Quadrivalent) Vaccine Inj) 0.5 ml ONCE ONCE IM Last administered on 03/25/16 08:57; Start 03/25/16 at 10:00; Stop 03/25/16 at 10:01; Status DC Chlorhexidine Gluconate (Chlorhexidine 2% Cloth) 3 pack DAILY@04 TOP Last administered on 03/29/16 03:42; Start 03/25/16 at 04:00; Stop 03/29/16 at 04:01 ; Status DC Chlorhexidine Gluconate (Chlorhexidine 2% Cloth) 3 pack UNSCH PRN TOP HYGIENIC CARE; Start 03/24/16 at 19:15; Stop 03/29/16 at 19:07; Status DC Tiotropium [place] (Spiriva Inh) 18 mcg DAILY INH Last administered on 08:36; Start 03/25/16 at 13:45; Stop 05/05/16 at 13:25; Status DC Metformin HCl (Glucophage) 500 mg BIDPC PO Last administered on 03/28/16 08:18 ; Start 03/26/16 at 09:00; Stop 04/07/16 at 10:16; Status DC Betamethasone/ Clotrimazole (Lotrisone Cream) 1 applic Q12HR TOPICAL Last administered on 07/11/16 20:27; Start 03/26/16 at 09:00 Methylprednisolone Sodium Succinate 60 mg 60 mg Q12HR IV PUSH Last administered on 03/28/16 08:17; Start 03/26/16 at 13:30; Stop 03/28/16 at 10:25 ; Status DC Propofol (Diprivan 1000 Mg/100ml Inj) 100 ml @ As Directed STK-MED ONCE .ROUTE ; Start 03/26/16 at 13:16; Stop 03/26/16 at 13:17; Status DC Etomidate 40 mg 40 mg STK-MED ONCE .ROUTE ; Start 03/26/16 at 13:20; Stop at 13:21; Status DC Propofol 100 ml @ 0 mls/hr TITRATE IV Last administered on 04/15/16 06:35; Start 03/26/16 at 14:30; Stop 05/02/16 at 08:34; Status DC Fentanyl Citrate (fentaNYL DRIP) 250 ml @ 0 mls/hr TITRATE IV Last administered on 05/02/16 15:59; Start 03/26/16 at 14:30; Stop 05/02/16 at 19:46; Status DC Rocuronium [place] (Zemuron Inj) 50 mg STK-MED ONCE .ROUTE ; Start 03/26/16 at 15:38; Stop 03/26/16 at 15:39; Status DC Rocuronium [place] (Zemuron Inj) 50 mg STK-MED ONCE .ROUTE ; Start 03/26/16 at 15:40; Stop 03/26/16 at 15:41; Status DC Furosemide (Lasix Inj) 40 mg ONCE ONCE IV PUSH Last administered on 03/26/16 18:00; Start 03/26/16 at 16:45; Stop 03/26/16 at 17:08; Status DC Furosemide (Lasix Inj) 20 mg BID@09,18 IV PUSH Last administered on 03/29/16 08:06; Start 03/26/16 at 18:00; Stop 03/29/16 at 08:43; Status DC Pantoprazole Sodium (Protonix Inj) 40 mg Q24H IV PUSH Last administered on 05/24 18:00; Start 03/26/16 at 18:00; Stop 05/25/16 at 12:09; Status DC Enoxaparin Sodium 40 mg 40 mg Q12H SQ Last administered on 07/13/16 05:32; Start 03/26/16 at 18:00 Aztreonam 2000 mg/ Sodium Chloride 100 ml @ 200 mls/hr Q8H IV Last administered on 03/31/16 10:23; Start 03/26/16 at 18:00; Stop 03/31/16 at 13:55 ; Status DC Potassium Chloride 100 ml @ 50 mls/hr Q2H PRN IV For Potassium 2.8 - 3.2 mEq/ L Last administered on 05/03/16 23:31; Start 03/26/16 at 16:45; Stop 05/17/16 at 17:12; Status DC Potassium Chloride (KCl 20 Meq Premix Inj) 100 ml @ 50 mls/hr Q2H PRN IV For Potassium 2.8 - 3.2 mEq/L Last administered on 05/07/16 23:26; Start 03/26/16 at 16:45; Stop 05/17/16 at 17:12; Status DC Potassium Chloride 40 meq 40 meq UNSCH PRN PO/TUBE For Potassium 3.3 - 3.5 mEq/ L Last administered on 05/17/16 09:28; Start 03/26/16 at 16:45; Stop 05/17/16 at 17:12; Status DC Potassium Chloride 100 ml @ 25 mls/hr UNSCH PRN IV For Potassium 3.3 - 3.5 mEq /L Last administered on 04/20/16 09:17; Start 03/26/16 at 16:45; Stop 05/17/16 at 17:12; Status DC Potassium Chloride 100 ml @ 50 mls/hr Q2H PRN IV For Potassium 3.3 - 3.5 mEq/ L Last administered on 05/08/16 11:22; Start 03/26/16 at 16:45; Stop 05/17/16 at 17:12; Status DC Magnesium Sulfate/ Sodium Chloride (Magnesium Sulfate Inj/NS Inj) 100 ml @ 50 mls/hr UNSCH PRN IV For Magnesium 0.9 - 1.1 mg/dL; Start 03/26/16 at 16:45; Stop 05/17/16 at 17:12; Status DC Magnesium Oxide 800 mg 800 mg UNSCH PRN PO For Magnesium 1.2 - 1.6 mg/dL; Start 03/26/16 at 16:45; Stop 05/17/16 at 17:12; Status DC Magnesium Sulfate/ Sodium Chloride (Magnesium Sulfate Inj/NS Inj) 100 ml @ 50 mls/hr UNSCH PRN IV For Magnesium 1.2 - 1.6 mg/dL; Start 03/26/16 at 16:45; Stop 05/17/16 at 17:12; Status DC Potassium Phosphate 2000 mg 2,000 mg Q4H PRN PO For Phosphorus < 2.5 mg/dL Last administered on 04/01/16 05:08; Start 03/26/16 at 16:45; Stop 05/17/16 at 17:12; Status DC Sodium Phosphate/ Sodium Chloride (Sodium Phosphate Inj/NS 250 ml Inj) 250 ml @ 42 mls/hr UNSCH PRN IV For Phosphorus < 2.5 mg/dL Last administered on 14:19; Start 03/26/16 at 16:45; Stop 05/17/16 at 17:12; Status DC Potassium Chloride (KCl 40 Meq/30 ml Liq) 40 meq UNSCH PRN PO/TUBE SEE LABEL COMMENTS; Start 03/26/16 at 16:45; Stop 05/17/16 at 17:12; Status DC Potassium Phosphate 2000 mg 2,000 mg UNSCH PRN PO/TUBE SEE LABEL COMMENTS; Start 03/26/16 at 16:45; Stop 05/17/16 at 17:12; Status DC Potassium Phosphate/Sodium Chloride (Potassium Phosphate Inj/NS 250 ml Inj) 260 ml @ 42 mls/hr UNSCH PRN IV SEE LABEL COMMENTS Last administered on 05/03/16 08:23; Start 03/26/16 at 16:45; Stop 05/17/16 at 17:12; Status DC Potassium Chloride 40 meq 40 meq DAILY PO Last administered on 04/01/16 09:18 ; Start 03/26/16 at 18:00; Stop 04/02/16 at 07:20; Status DC Metronidazole (Flagyl 500 Mg Inj) 100 ml @ 100 mls/hr Q8H IV Last administered on 04/10/16 07:44; Start 03/27/16 at 08:00; Stop 04/10/16 at 13:30; Status DC Protein 1 pack 1 pack TID G-TUBE Last administered on 07/08/16 17:40; Start at 09:00 Vancomycin HCl 1500 mg/Sodium Chloride 515 ml @ 257.5 mls/ hr ONCE ONCE IV Last administered on 03/27/16 10:21; Start 03/27/16 at 09:00; Stop 03/27/16 at 10:59; Status DC Pharmacy Profile Note 0 ml @ 0 mls/hr UNSCH OTHER ; Start 03/27/16 at 08:00; Stop 03/31/16 at 13:55; Status DC Vancomycin HCl/ Sodium Chloride (Vancomycin Inj/ NS 500 ml Inj) 520 ml @ 260 mls/hr Q24H IV Last administered on 03/30/16 04:04; Start 03/28/16 at 04:00; Stop 03/30/16 at 11:11; Status DC Miscellaneous Information SPECIFIC LAB TO BE ... ONCE ONCE XX Last administered on 03/30/16 03:45; Start 03/30/16 at 03:45; Stop 03/30/16 at 03:46 ; Status DC Insulin Detemir 5 units 5 units Q12HR SQ Last administered on 03/31/16 21:17; Start 03/28/16 at 11:00; Stop 04/01/16 at 08:57; Status DC Pharmacy Profile Note (Vancomycin Consult Pharmacy) 0 ml @ 0 mls/hr UNSCH OTHER ; Start 03/28/16 at 10:15; Status UNV Methylprednisolone Sodium Succinate (SoluMEDROL INJ) 40 mg Q12HR IV PUSH Last administered on 04/17/16 07:26; Start 03/28/16 at 21:00; Stop 04/17/16 at 09:03 ; Status DC Docusate Sodium (Colace Liq) 100 mg Q12HR PO Last administered on 07/10/16 08: 14; Start 03/29/16 at 09:00 Sennosides (Senna Liq) 8.8 mg DAILY PO Last administered on 03/31/16 08:40; Start 03/29/16 at 09:00; Stop 04/01/16 at 08:57; Status DC Furosemide (Lasix Inj) 40 mg BID@09,18 IV PUSH ; Start 03/29/16 at 18:00; Stop 03/29/16 at 18:00; Status DC Furosemide 40 mg 40 mg BID@09,18 IV PUSH Last administered on 04/01/16 17:37; Start 03/29/16 at 09:00; Stop 04/02/16 at 07:14; Status DC Vancomycin HCl/ Sodium Chloride (Vancomycin Inj/ NS 500 ml Inj) 517.5 ml @ 250 mls/hr Q12H IV Last administered on 03/31/16 03:19; Start 03/30/16 at 16:00; Stop 03/31/16 at 13:55; Status DC Miscellaneous Information SPECIFIC LAB TO BE ISHAAN... ONCE ONCE XX Last administered on 03/31/16 15:41; Start 03/31/16 at 15:45; Stop 03/31/16 at 15:46 ; Status DC Acetaminophen (Tylenol 650 Mg/ 20 ml Liq) 650 mg Q6H PRN PO fever or pain 1-5 Last administered on 06/23/16 21:37; Start 03/30/16 at 15:45 Bumetanide (Bumex Inj) 1 mg ONCE ONCE IV PUSH ; Start 03/31/16 at 09:30; Stop 03/31/16 at 10:40; Status DC Dextrose (D50w (Vial) Inj) 25 ml UNSCH PRN IV PUSH HYPOGLYCEMIA-SEE COMMENTS; Start 03/31/16 at 11:15; Stop 04/03/16 at 17:53; Status DC Glucagon (Glucagon Inj) 1 mg UNSCH PRN OTHER HYPOGLYCEMIA-SEE COMMENTS; Start 03/31/16 at 11:15; Stop 04/07/16 at 10:46; Status DC Insulin Human Regular 1 1 Q6H SQ Last administered on 04/03/16 17:48; Start at 12:00; Stop 04/03/16 at 17:54; Status DC Levofloxacin/ Dextrose 150 ml @ 100 mls/hr Q24H IV Last administered on 14:07; Start 03/31/16 at 14:00; Stop 04/16/16 at 09:51; Status DC Fluconazole/ Sodium Chloride 200 ml @ 100 mls/hr Q24H IV Last administered on 04/09/16 15:48; Start 03/31/16 at 16:00; Stop 04/10/16 at 13:31; Status DC Linezolid 300 ml @ 300 mls/hr Q12H IV Last administered on 04/04/16 02:45; Start 03/31/16 at 15:00; Stop 04/04/16 at 09:59; Status DC Cisatracurium Besylate 100 mg/ Sodium Chloride 250 ml @ 0 mls/hr TITRATE IV Last administered on 04/14/16 11:39; Start 04/01/16 at 09:00; Stop 04/15/16 at 09:02; Status DC Epoprostenol Sodium/Sodium Chloride (Flolan (30,000 Ng/ml) Neb/NS Inj) 100 ml @ 8 mls/hr Q8H NEB Last administered on 04/15/16 02:32; Start 04/01/16 at 10:00 ; Stop 04/15/16 at 09:02; Status DC Insulin Detemir (Levemir Inj) 15 units Q12HR SQ Last administered on 04/01/16 20:13; Start 04/01/16 at 09:00; Stop 04/02/16 at 07:14; Status DC Sennosides (Senna Liq) 8.8 mg BID PO/TUBE Last administered on 06/26/16 09:07 ; Start 04/01/16 at 09:00; Stop 07/07/16 at 10:55; Status DC Polyethylene Glycol (Miralax) 17 gm BID PO Last administered on 04/03/16 21:14 ; Start 04/01/16 at 09:00; Stop 04/23/16 at 13:31; Status DC Lactulose (Lactulose Liq) 30 ml QID PO Last administered on 04/01/16 20:13; Start 04/01/16 at 09:00; Stop 04/02/16 at 07:14; Status DC Methylnaltrexone [place] (Relistor Inj) 12 mg ONCE ONCE SQ Last administered on 04/01/16 11:44; Start 04/01/16 at 10:30; Stop 04/01/16 at 10:31; Status DC Metoclopramide HCl (Reglan Inj) 5 mg Q8HR IV PUSH Last administered on 05:42; Start 04/01/16 at 14:00; Stop 04/11/16 at 09:15; Status DC Glycerin (Glycerin Adult Supp) 2 gm BID PRN RECTAL CONSTIPATION Last administered on 04/25/16 10:22; Start 04/01/16 at 09:00 Glycerin (Glycerin Adult Supp) 2 gm ONCE ONCE RECTAL Last administered on 04/01 10:52; Start 04/01/16 at 09:30; Stop 04/01/16 at 09:31; Status DC Mineral Oil (Mineral Oil Liq) 15 ml ONCE ONCE PO Last administered on 10:00; Start 04/01/16 at 10:00; Stop 04/01/16 at 10:01; Status DC Chlorhexidine Gluconate 15 ml 15 ml BID@08,20 MT Last administered on 07/02/16 20:00; Start 04/01/16 at 20:00; Stop 07/07/16 at 10:56; Status DC Midazolam HCl 100 ml @ 0 mls/hr TITRATE IV Last administered on 05/01/16 14:25 ; Start 04/01/16 at 11:45; Stop 05/02/16 at 08:35; Status DC Norepinephrine Bitartrate (Levophed-Dextrose Drip) 250 ml @ 0 mls/hr TITRATE IV Last administered on 04/01/16 21:15; Start 04/01/16 at 20:30; Stop 04/07/16 at 10:10; Status DC Furosemide (Lasix Inj) 20 mg BID@09,18 IV PUSH Last administered on 04/03/16 08:17; Start 04/02/16 at 09:00; Stop 04/03/16 at 12:58; Status DC Insulin Detemir (Levemir Inj) 25 units Q12HR SQ Last administered on 04/03/16 08:17; Start 04/02/16 at 09:00; Stop 04/03/16 at 12:48; Status DC IV Flush (NS Flush) DAILY IVF Last administered on 07/13/16 09:00; Start at 09:00 IV Flush (NS Flush) UNSCH PRN IVF SEE PROTOCOL Last administered on 04/22/16 07:42; Start 04/02/16 at 09:30 Artificial Tears (Lacrilube Opht Oint) 1 applic Q12HR EACH EYE Last administered on 06/02/16 08:46; Start 04/02/16 at 12:00; Stop 06/02/16 at 14:00; Status DC Lactobacillus Acidophilus (Lactinex) 1 tab TID PO Last administered on 12:40; Start 04/03/16 at 13:00; Stop 07/07/16 at 13:12; Status DC Insulin Detemir (Levemir Inj) 40 units Q12HR SQ ; Start 04/03/16 at 21:00; Stop 04/03/16 at 21:00; Status DC Insulin Human NPH 15 units 15 units ONCE ONCE SQ Last administered on 13:08; Start 04/03/16 at 13:00; Stop 04/03/16 at 13:01; Status DC Sodium Chloride (NS 1000 ml Inj) 1,000 ml @ 999 mls/hr BOLUS ONCE IV Last administered on 04/03/16 13:10; Start 04/03/16 at 13:00; Stop 04/03/16 at 14:00 ; Status DC Sodium Polystyrene Sulfonate 15 gm 15 gm ONCE ONCE PO Last administered on 13:22; Start 04/03/16 at 13:00; Stop 04/03/16 at 13:08; Status DC Insulin Human Regular/Sodium Chloride (NovoLIN R (IV INFUSION)/NS Inj) 100 ml @ 0 mls/hr TITRATE IV Last administered on 04/03/16 22:44; Start 04/03/16 at 18: 00; Stop 04/04/16 at 09:12; Status DC Dextrose (D50w (Vial) Inj) 25 ml UNSCH PRN IV PUSH SEE LABEL COMMENTS; Start at 17:45; Stop 04/04/16 at 09:14; Status DC Miscellaneous Information 1 ONCE ONCE XX Last administered on 04/03/16 20:27 ; Start 04/03/16 at 17:45; Stop 04/03/16 at 17:52; Status DC Albuterol/ Ipratropium (Duoneb Neb) 1 ampule Q4HR NEB NEB Last administered on 04/08/16 03:48; Start 04/04/16 at 08:00; Stop 04/08/16 at 08:00; Status DC Furosemide 20 mg 20 mg BID@09,18 IV PUSH Last administered on 04/15/16 08:12; Start 04/04/16 at 09:00; Stop 04/15/16 at 09:53; Status DC Insulin Human Regular/Sodium Chloride (NovoLIN R (IV INFUSION)/NS Inj) 100 ml @ 0 mls/hr TITRATE IV Last administered on 04/07/16 04:33; Start 04/04/16 at 09:00 ; Stop 04/07/16 at 10:11; Status DC Dextrose (D50w (Vial) Inj) 25 ml UNSCH PRN IV PUSH SEE LABEL COMMENTS; Start at 09:00; Stop 04/07/16 at 10:46; Status DC Miscellaneous Information 1 ONCE ONCE XX Last administered on 04/04/16 10:00; Start 04/04/16 at 10:00; Stop 04/04/16 at 10:01; Status DC Insulin Detemir (Levemir Inj) 60 units Q12HR SQ Last administered on 04/07/16 07:41; Start 04/05/16 at 11:00; Stop 04/08/16 at 08:14; Status DC Dextrose (D50w (Vial) Inj) 25 ml UNSCH PRN IV PUSH HYPOGLYCEMIA-SEE COMMENTS; Start 04/07/16 at 10:15; Stop 04/07/16 at 17:03; Status DC Glucagon (Glucagon Inj) 1 mg UNSCH PRN OTHER HYPOGLYCEMIA-SEE COMMENTS; Start 04/07/16 at 10:15; Stop 04/07/16 at 17:03; Status DC Insulin Human Regular (NovoLIN R SUPPLEMENTAL SCALE) 1 Q6H SQ Last administered on 04/07/16 10:56; Start 04/07/16 at 11:00; Stop 04/07/16 at 17:01; Status DC Insulin Detemir (Levemir Inj) 20 units Q12HR SQ Last administered on 04/08/16 07:26; Start 04/07/16 at 21:00; Stop 04/08/16 at 08:14; Status DC Dextrose (D50w (Vial) Inj) 25 ml UNSCH PRN IV PUSH HYPOGLYCEMIA-SEE COMMENTS; Start 04/07/16 at 17:00; Stop 05/13/16 at 13:50; Status DC Glucagon (Glucagon Inj) 1 mg UNSCH PRN OTHER HYPOGLYCEMIA-SEE COMMENTS; Start 04/07/16 at 17:00; Stop 05/13/16 at 13:50; Status DC Insulin Human Regular (NovoLIN R SUPPLEMENTAL SCALE) 1 Q6H SQ Last administered on 05/11/16 17:08; Start 04/07/16 at 18:00; Stop 05/13/16 at 13:50 ; Status DC Insulin Detemir 24 units 24 units Q12HR SQ Last administered on 04/09/16 07:37 ; Start 04/08/16 at 21:00; Stop 04/09/16 at 10:01; Status DC Vancomycin HCl 1750 mg/Sodium Chloride 517.5 ml @ 258.75 mls/ hr ONCE ONCE IV Last administered on 04/08/16 14:42; Start 04/08/16 at 13:00; Stop 04/08/16 at 14:59; Status DC Sodium Chloride (NS 500 ml Inj) 500 ml @ 500 mls/hr BOLUS ONCE IV Last administered on 04/08/16 17:20; Start 04/08/16 at 17:15; Stop 04/08/16 at 18:14; Status DC Insulin Detemir 30 units 30 units Q12HR SQ Last administered on 04/10/16 08:29 ; Start 04/09/16 at 21:00; Stop 04/10/16 at 10:25; Status DC Pharmacy Profile Note 0 ml @ 0 mls/hr UNSCH OTHER ; Start 04/09/16 at 10:30; Stop 04/12/16 at 13:55; Status DC Vancomycin HCl/ Sodium Chloride (Vancomycin Inj/ NS 500 ml Inj) 515 ml @ 257.5 mls/ hr Q12H IV Last administered on 04/10/16 11:16; Start 04/09/16 at 12:00; Stop 04/10/16 at 13:51; Status DC Miscellaneous Information SPECIFIC LAB TO BE DRAWN:VA... ONCE ONCE XX ; Start 04/10/16 at 11:45; Stop 04/10/16 at 11:46; Status DC Insulin Detemir 35 units 35 units Q12HR SQ Last administered on 04/11/16 08:07 ; Start 04/10/16 at 21:00; Stop 04/11/16 at 09:15; Status DC Vancomycin HCl/ Sodium Chloride (Vancomycin Inj/ NS 500 ml Inj) 520 ml @ 260 mls/hr Q12H IV Last administered on 04/12/16 08:14; Start 04/10/16 at 20:00; Stop 04/12/16 at 13:55; Status DC Miscellaneous Information SPECIFIC LAB TO BE ISHAAN... ONCE ONCE XX Last administered on 04/12/16 07:45; Start 04/12/16 at 07:45; Stop 04/12/16 at 07:46; Status DC Insulin Detemir (Levemir Inj) 45 units Q12HR SQ Last administered on 04/23/16 08:29; Start 04/11/16 at 21:00; Stop 04/23/16 at 13:24; Status DC Metoclopramide HCl 10 mg 10 mg Q8HR IV PUSH Last administered on 05/25/16 06: 05; Start 04/11/16 at 14:00; Stop 05/25/16 at 12:09; Status DC Sodium Chloride (NS 1000 ml Inj) 2,000 ml @ 0 mls/hr NOW ONCE IV Last administered on 04/11/16 21:01; Start 04/11/16 at 21:00; Stop 04/11/16 at 21:01; Status DC Miscellaneous Information SPECIFIC LAB TO BE DRAWN:VANCOMYCIN TROUGH DATE TO... ONCE ONCE XX ; Start 04/13/16 at 19:45; Stop 04/13/16 at 19:46; Status Cancel Furosemide 20 mg 20 mg Q6H IV PUSH Last administered on 04/16/16 08:40; Start 04/12/16 at 15:00; Stop 04/16/16 at 09:25; Status DC Epoprostenol Sodium 30 ml/ Sodium Chloride 67.5 ml @ 8 mls/hr Q8H NEB ; Start 04/15/16 at 10:00; Stop 04/15/16 at 10:00; Status DC Epoprostenol Sodium/Sodium Chloride (Flolan (30,000 Ng/ml) Neb/NS Inj) 100 ml @ 8 mls/hr Q8H NEB Last administered on 04/18/16 02:09; Start 04/15/16 at 10:00 ; Stop 04/18/16 at 10:15; Status DC Furosemide (Lasix Inj) 20 mg Q8H IV PUSH Last administered on 04/23/16 08:31; Start 04/16/16 at 17:00; Stop 04/23/16 at 13:44; Status DC Methylprednisolone Sodium Succinate 40 mg 40 mg DAILY IV PUSH Last administered on 05/02/16 08:11; Start 04/18/16 at 09:00; Stop 05/02/16 at 08:39; Status DC Epoprostenol Sodium 25 ml/ Sodium Chloride 100 ml @ 8 mls/hr Q8H NEB Last administered on 04/19/16 13:12; Start 04/18/16 at 15:00; Stop 04/19/16 at 15:59 ; Status DC Vancomycin HCl 1500 mg/Sodium Chloride 515 ml @ 257.5 mls/ hr ONCE ONCE IV Last administered on 04/19/16 13:45; Start 04/19/16 at 13:00; Stop 04/19/16 at 14:59; Status DC Epoprostenol Sodium 12.5 ml/ Sodium Chloride 100 ml @ 8 mls/hr Q8H NEB Last administered on 04/20/16 00:29; Start 04/19/16 at 16:00; Stop 04/20/16 at 15:11 ; Status DC Pharmacy Profile Note 0 ml @ 0 mls/hr UNSCH OTHER ; Start 04/20/16 at 14:15; Stop 04/29/16 at 10:33; Status DC Vancomycin HCl/ Sodium Chloride (Vancomycin Inj/ NS 500 ml Inj) 520 ml @ 250 mls/hr Q12H IV Last administered on 04/24/16 05:53; Start 04/20/16 at 18:00; Stop 04/24/16 at 09:15; Status DC Miscellaneous Information SPECIFIC LAB TO BE DRAWN:VANCO TROUGH DATE TO... ONCE ONCE XX Last administered on 04/22/16 05:45; Start 04/22/16 at 05:45; Stop 04/22/16 at 05:46; Status DC Potassium Bicarb/ Potassium Chloride (K-Lyte Cl Eff) 25 meq Q12HR PO Last administered on 04/28/16 07:49; Start 04/21/16 at 21:00; Stop 05/27/16 at 08:44 ; Status DC Artificial Tears (Tears Naturale Opth Soln) 1 drop Q4H EACH EYE Last administered on 07/11/16 17:30; Start 04/21/16 at 18:00 Water (Free Water) 200 ml Q6HR G-TUBE Last administered on 04/30/16 12:00; Start 04/22/16 at 18:00; Stop 05/01/16 at 17:19; Status DC Albuterol/ Ipratropium (Duoneb Neb) 1 ampule Q6HR NEB NEB Last administered on 04/27/16 08:03; Start 04/23/16 at 16:00; Stop 04/27/16 at 16:00; Status DC Albuterol/ Ipratropium (Duoneb Neb) 1 ampule Q2HR NEB PRN NEB [id number] Last administered on 05/11/16 15:54; Start 04/23/16 at 13:15; Stop 05/17/16 at 20:14 ; Status DC Insulin Detemir (Levemir Inj) 55 units Q12HR SQ Last administered on 04/24/16 08:34; Start 04/23/16 at 21:00; Stop 04/24/16 at 12:17; Status DC Polyethylene Glycol (Miralax) 17 gm BID PO Last administered on 07/01/16 20:31 ; Start 04/24/16 at 09:00; Stop 07/07/16 at 10:55; Status DC Furosemide 20 mg 20 mg BID IV PUSH Last administered on 04/28/16 07:50; Start 04/23/16 at 21:00; Stop 04/28/16 at 11:08; Status DC Vancomycin HCl/ Sodium Chloride (Vancomycin Inj/ NS 500 ml Inj) 515 ml @ 257.5 mls/ hr Q12H IV Last administered on 04/28/16 11:59; Start 04/24/16 at 23:00; Stop 04/28/16 at 14:04; Status DC Miscellaneous Information SPECIFIC LAB TO BE ... ONCE ONCE XX Last administered on 04/25/16 22:45; Start 04/25/16 at 22:45; Stop 04/25/16 at 22:46 ; Status DC Insulin Detemir (Levemir Inj) 65 units Q12HR SQ Last administered on 04/25/16 09:00; Start 04/24/16 at 21:00; Stop 04/25/16 at 15:10; Status DC Polyethylene Glycol (Miralax) 17 gm ONCE ONCE PO Last administered on 16:21; Start 04/25/16 at 15:15; Stop 04/25/16 at 15:16; Status DC Polyethylene Glycol (Miralax) 17 gm DAILY PO ; Start 04/26/16 at 09:00; Stop at 11:33; Status DC Mineral Oil (Mineral Oil Liq) 15 ml ONCE ONCE PO Last administered on 16:21; Start 04/25/16 at 16:00; Stop 04/25/16 at 16:01; Status DC Potassium Chloride (KCl 40 Meq/30 ml Liq) 40 meq ONCE ONCE PO Last administered on 04/25/16 16:21; Start 04/25/16 at 15:15; Stop 04/25/16 at 15:16 ; Status DC Insulin Detemir (Levemir Inj) 75 units Q12HR SQ Last administered on 04/26/16 09:13; Start 04/25/16 at 21:00; Stop 04/26/16 at 14:43; Status DC Methylnaltrexone [place] (Relistor Inj) 12 mg ONCE ONCE SQ Last administered on 04/25/16 16:22; Start 04/25/16 at 16:00; Stop 04/25/16 at 16:01; Status DC Miscellaneous Information SPECIFIC LAB TO BE DRAWN:VANCO TROUGH DATE TO BE DR... ONCE ONCE XX Last administered on 04/28/16 10:45; Start 04/28/16 at 10: 45; Stop 04/28/16 at 10:46; Status DC Methylnaltrexone [place] (Relistor Inj) 12 mg ONCE ONCE SQ Last administered on 04/26/16 15:18; Start 04/26/16 at 14:30; Stop 04/26/16 at 14:56; Status DC Lactulose (Lactulose Liq) 30 ml QID PO Last administered on 04/28/16 07:47; Start 04/26/16 at 18:00; Stop 05/27/16 at 08:44; Status DC Mineral Oil (Mineral Oil Liq) 15 ml ONCE ONCE PO Last administered on 15:19; Start 04/26/16 at 14:30; Stop 04/26/16 at 14:56; Status DC Sennosides (Senna Liq) 8.8 mg ONCE ONCE PO Last administered on 04/26/16 15: 25; Start 04/26/16 at 14:30; Stop 04/26/16 at 14:56; Status DC Magnesium Citrate (Citroma Liq) 300 ml ONCE ONCE PO Last administered on 15:25; Start 04/26/16 at 14:45; Stop 04/26/16 at 14:56; Status DC Potassium Chloride (KCl 40 Meq/30 ml Liq) 40 meq ONCE ONCE PO Last administered on 04/26/16 15:25; Start 04/26/16 at 14:45; Stop 04/26/16 at 14:56 ; Status DC Insulin Detemir (Levemir Inj) 80 units Q12HR SQ Last administered on 04/28/16 07:49; Start 04/26/16 at 21:00; Stop 04/28/16 at 11:19; Status DC Nystatin 1 applic 1 applic Q12HR TOPICAL Last administered on 07/11/16 20:28; Start 04/27/16 at 11:00 Aztreonam/Sodium Chloride (Azactam Inj/NS Inj) 100 ml @ 200 mls/hr Q8H IV Last administered on 04/29/16 02:39; Start 04/27/16 at 10:00; Stop 04/29/16 at 10:34; Status DC Potassium Chloride (KCl 40 Meq/30 ml Liq) 40 meq ONCE ONCE PO Last administered on 04/27/16 13:00; Start 04/27/16 at 13:00; Stop 04/27/16 at 13:02 ; Status DC Albuterol/ Ipratropium (Duoneb Neb) 1 ampule Q4HR NEB NEB Last administered on 05/02/16 07:53; Start 04/28/16 at 12:00; Stop 05/02/16 at 12:00; Status DC Sodium Chloride 2 ml 2 ml Q8HR NEB NEB Last administered on 05/01/16 07:21; Start 04/28/16 at 16:00; Stop 05/01/16 at 15:59; Status DC Sodium Chloride/ Sterile Water (Sodium Chloride 23.4% Inj/Sterile Water For Inj ) 1,009.625 ml @ 84 mls/hr Q12H2M IV Last administered on 04/28/16 13:23; Start 04/28/16 at 13:00; Stop 04/29/16 at 01:01; Status DC Insulin Detemir 70 units 70 units Q12HR SQ Last administered on 05/03/16 08:08 ; Start 04/28/16 at 21:00; Stop 05/05/16 at 17:18; Status DC Vancomycin HCl/ Sodium Chloride (Vancomycin Inj/ NS 250 ml Inj) 262.5 ml @ 250 mls/hr Q12H IV Last administered on 04/29/16 00:18; Start 04/28/16 at 23:00; Stop 04/29/16 at 10:34; Status DC Miscellaneous Information SPECIFIC LAB TO BE ISHAAN... ONCE ONCE XX ; Start at 10:45; Stop 04/30/16 at 10:45; Status DC Clindamycin Phosphate/Sodium Chloride (Cleocin Inj/NS Inj) 104 ml @ 208 mls/hr Q8H IV Last administered on 05/06/16 15:52; Start 04/29/16 at 12:00; Stop at 12:00; Status DC Lidocaine/ Epinephrine (Xylocaine-Epi 1%-1:100,000 Inj) 30 ml STK-MED ONCE .ROUTE ; Start 04/30/16 at 13:00; Stop 04/30/16 at 13:01; Status DC Fentanyl Citrate 250 mcg 250 mcg STK-MED ONCE .ROUTE ; Start 04/30/16 at 15:28; Stop 04/30/16 at 15:29; Status DC Dexmedetomidine HCl (Precedex Inj) 50 ml @ 0 mls/hr TITRATE IV Last administered on 05/02/16 18:32; Start 05/01/16 at 17:00; Stop 05/02/16 at 19:00; Status DC Water (Free Water) 100 ml Q6HR G-TUBE Last administered on 06/09/16 12:00; Start 05/01/16 at 18:00; Stop 06/10/16 at 15:51; Status DC Fentanyl (Duragesic 25 Mcg Patch.72 Hr) 1 patch Q3D TD Last administered on 09:05; Start 05/02/16 at 09:00; Stop 06/19/16 at 08:05; Status DC Miscellaneous Information 1 Q3D T-DERMAL Last administered on 06/13/16 08:23; Start 05/05/16 at 09:00; Stop 06/19/16 at 08:05; Status DC Oxycodone HCl (Roxicodone Intensol Liq) 5 mg Q6H PRN PO PAIN SCALE 7 TO 10 Last administered on 05/23/16 05:54; Start 05/02/16 at 08:45; Stop 06/05/16 at 22 :00; Status DC Acetaminophen/ Hydrocodone Bitart ([place]amo 5-325 Mg) 1 tab Q6H PO Last administered on 05/06/16 15:52; Start 05/02/16 at 09:00; Stop 05/06/16 at 18:52; Status DC Methylprednisolone Sodium Succinate (SoluMEDROL INJ) 30 mg DAILY IV PUSH Last administered on 05/04/16 07:55; Start 05/03/16 at 09:00; Stop 05/04/16 at 10:09; Status DC Midazolam HCl (Versed Inj) 5 mg STK-MED ONCE .ROUTE Last administered on 16:18; Start 05/02/16 at 16:14; Stop 05/02/16 at 16:15; Status DC Lorazepam (Ativan Inj) 2 mg STK-MED ONCE .ROUTE Last administered on 05/02/16 16:19; Start 05/02/16 at 16:15; Stop 05/02/16 at 16:16; Status DC Midazolam HCl (Versed Inj) 5 mg NOW ONCE IV Last administered on 05/02/16 16: 30; Start 05/02/16 at 16:30; Stop 05/02/16 at 16:31; Status DC Lorazepam 2 mg 2 mg Q4H PRN IVP AGITATION Last administered on 06/13/16 21:22 ; Start 05/02/16 at 16:30; Stop 06/19/16 at 08:05; Status DC Dexmedetomidine HCl/Sodium Chloride (Precedex Inj/NS 250 ml Inj) 260 ml @ 0 mls/ hr TITRATE IV Last administered on 05/04/16 09:53; Start 05/02/16 at 19:01; Stop 05/04/16 at 16:31; Status DC Hydralazine HCl (Apresoline Inj) 10 mg Q4H PRN IV PUSH SBP >165 Last administered on 05/03/16 06:20; Start 05/02/16 at 22:00; Stop 06/05/16 at 20:34; Status DC Propofol (Diprivan 200 Mg/20 ml Inj) 170 mg STK-MED ONCE IV ; Start 05/03/16 at 15:06; Stop 05/03/16 at 15:07; Status DC Quetiapine Fumarate (SEROquel) 25 mg BID PO Last administered on 06/21/16 10: 58; Start 05/04/16 at 09:00; Stop 06/21/16 at 13:25; Status DC Methylprednisolone Sodium Succinate (SoluMEDROL INJ) 20 mg DAILY IV PUSH Last administered on 05/11/16 08:02; Start 05/05/16 at 09:00; Stop 05/12/16 at 09:13 ; Status DC Fentanyl Citrate (fentaNYL INJ) 50 mcg NOW ONCE IV Last administered on 01:03; Start 05/05/16 at 01:00; Stop 05/05/16 at 01:02; Status DC Metoprolol Tartrate (Lopressor Inj) 2.5 mg NOW ONCE IV PUSH Last administered on 05/05/16 04:17; Start 05/05/16 at 04:00; Stop 05/05/16 at 04:01; Status DC Ondansetron HCl (Zofran Inj) 4 mg Q6H PRN IV NAUSEA OR VOMITING; Start 05/05/16 at 06:45 Bumetanide (Bumex Inj) 0.5 mg DAILY IV PUSH Last administered on 05/24/16 09: 25; Start 05/05/16 at 09:00; Stop 05/24/16 at 10:39; Status DC Albuterol/ Ipratropium (Duoneb Neb) 1 ampule TID NEB INH Last administered on 05/09/16 13:05; Start 05/05/16 at 14:00; Stop 05/09/16 at 14:00; Status DC Insulin Detemir (Levemir Inj) 50 units Q12HR SQ Last administered on 05/11/16 20:54; Start 05/05/16 at 21:00; Stop 05/13/16 at 13:50; Status DC Acetaminophen/ Hydrocodone Bitart ([place] 5-325 Mg) 1 tab Q12HR PO Last administered on 06/18/16 19:40; Start 05/06/16 at 21:00; Stop 06/19/16 at 08:05 ; Status DC Propofol 200 mg 200 mg STK-MED ONCE IV ; Start 04/30/16 at 15:12; Stop 05/07/16 at 15:12; Status DC Parenteral Electrolytes (Normosol R Inj) 2,000 ml @ As Directed STK-MED ONCE IV ; Start 04/30/16 at 15:12; Stop 05/07/16 at 15:12; Status DC Potassium Chloride (KCl) 10 meq DAILY PO Last administered on 07/06/16 08:48; Start 05/10/16 at 09:30; Stop 07/08/16 at 09:34; Status DC Simethicone (Phazyme Chew) 125 mg DAILY PRN PO gas Last administered on 15:00; Start 05/11/16 at 15:00 Insulin Detemir (Levemir Inj) 35 units Q12HR SQ Last administered on 05/30/16 20:26; Start 05/13/16 at 21:00; Stop 06/05/16 at 22:00; Status DC Dextrose (D50w (Vial) Inj) 25 ml UNSCH PRN IV PUSH HYPOGLYCEMIA-SEE COMMENTS; Start 05/13/16 at 14:00; Stop 05/31/16 at 21:54; Status DC Glucagon (Glucagon Inj) 1 mg UNSCH PRN OTHER HYPOGLYCEMIA-SEE COMMENTS; Start 05/13/16 at 14:00; Stop 05/31/16 at 21:54; Status DC Insulin Human Regular (NovoLIN R SUPPLEMENTAL SCALE) 1 ACHS SLIDING SCALE SQ Last administered on 05/25/16 06:19; Start 05/13/16 at 16:00; Stop 05/25/16 at 12:14; Status DC Silver Sulfadiazine (Silvadene 1% Cream (400 Gm)) 1 applic DAILY TOPICAL Last administered on 07/13/16 09:00; Start 05/16/16 at 11:00 Pregabalin (Lyrica) 25 mg DAILY PO Last administered on 05/19/16 08:22; Start 05/17/16 at 11:45; Stop 05/20/16 at 10:29; Status DC Ipratropium [place] (Atrovent Neb) 0.5 mg Q2HR NEB PRN NEB wheezing Last administered on 05/27/16 00:28; Start 05/17/16 at 21:00 Diltiazem HCl (Cardizem) 30 mg ONCE ONCE PO Last administered on 05/17/16 22: 44; Start 05/17/16 at 22:45; Stop 05/17/16 at 22:46; Status DC Potassium Chloride (KCl) 40 meq ONCE ONCE PO Last administered on 05/17/16 22 :44; Start 05/17/16 at 22:45; Stop 05/17/16 at 22:46; Status DC Pregabalin (Lyrica) 50 mg DAILY PO Last administered on 06/18/16 08:33; Start 05/21/16 at 09:00; Stop 06/19/16 at 08:05; Status DC Baclofen (Lioresal) 10 mg Q12HR PO Last administered on 06/18/16 19:39; Start 05/24/16 at 10:45; Stop 06/19/16 at 08:05; Status DC Bumetanide (Bumetanide) 0.5 mg ONCE ONCE PO Last administered on 05/25/16 09: 21; Start 05/25/16 at 09:00; Stop 05/25/16 at 09:01; Status DC Miscellaneous (Pill Splitter) 1 ea UNS PRN OTHER SEE LABEL COMMENTS; Start at 10:45 Pantoprazole Sodium (Protonix) 40 mg DAILY PO Last administered on 07/13/16 09 :29; Start 05/26/16 at 09:00 Insulin Human Regular (NovoLIN R SUPPLEMENTAL SCALE) 1 Q12HR SQ Last administered on 05/26/16 22:40; Start 05/25/16 at 19:00; Stop 05/27/16 at 08:44 ; Status DC Metoclopramide HCl (Reglan) 10 mg Q8HR G-TUBE Last administered on 06/02/16 14: 43; Start 05/25/16 at 14:00; Stop 06/02/16 at 14:49; Status DC Albuterol Sulfate 2.5 mg 2.5 mg ONCE ONCE NEB Last administered on 05/27/16 00:45; Start 05/27/16 at 00:45; Stop 05/27/16 at 00:46; Status DC Sodium Chloride (NS 1000 ml Inj) 999 ml @ 0 mls/hr BOLUS ONCE IV Last administered on 05/27/16 02:01; Start 05/27/16 at 02:00; Stop 05/27/16 at 04:31 ; Status DC Adenosine (Adenocard Inj) 6 mg NOW ONCE IV PUSH Last administered on 02:01; Start 05/27/16 at 02:01; Stop 05/27/16 at 04:31; Status DC Adenosine (Adenocard Inj) 12 mg NOW ONCE IV PUSH Last administered on 02:11; Start 05/27/16 at 02:11; Stop 05/27/16 at 04:31; Status DC Insulin Human Regular 1 1 Q4HR SQ ; Start 05/27/16 at 12:00; Stop 05/28/16 at 01 :44; Status DC Sodium Chloride (NS 1000 ml Inj) 1,000 ml @ 100 mls/hr Q10H IV Last administered on 05/27/16 19:00; Start 05/27/16 at 09:00; Stop 05/28/16 at 04:59 ; Status DC Albuterol/ Ipratropium (Duoneb Neb) 1 ampule Q6HR NEB NEB Last administered on 05/31/16 07:29; Start 05/27/16 at 10:00; Stop 05/31/16 at 10:00; Status DC Insulin Human Regular (NovoLIN R SUPPLEMENTAL SCALE) 1 BID@07,15 SQ Last administered on 05/28/16 14:34; Start 05/28/16 at 07:00; Stop 05/31/16 at 21:53 ; Status DC Adenosine (Adenocard Inj) 6 mg STK-MED ONCE IV PUSH ; Start 05/27/16 at 05:00; Stop 05/28/16 at 12:54; Status DC Dextrose (D50w (Vial) Inj) 25 ml UNSCH PRN IV PUSH HYPOGLYCEMIA-SEE COMMENTS; Start 05/31/16 at 22:00 Glucagon (Glucagon Inj) 1 mg UNSCH PRN OTHER HYPOGLYCEMIA-SEE COMMENTS; Start 05/31/16 at 22:00; Stop 06/19/16 at 08:05; Status DC Insulin Aspart (NovoLOG SUPPLEMENTAL SCALE) 1 ACHS SLIDING SCALE SQ Last administered on 06/12/16 18:00; Start 06/01/16 at 07:00; Stop 06/22/16 at 16:52 ; Status DC Albuterol/ Ipratropium (Duoneb Neb) 1 ampule Q6HR NEB NEB Last administered on 06/06/16 08:29; Start 06/02/16 at 16:00; Stop 06/06/16 at 10:56; Status DC Albuterol/ Ipratropium (Duoneb Neb) 1 ampule Q2HR NEB PRN NEB dyspnea Last administered on 07/11/16 12:19; Start 06/02/16 at 15:00 Insulin Detemir 5 units 5 units HS SQ Last administered on 07/12/16 20:26; Start 06/06/16 at 21:00 Propofol (Diprivan 1000 Mg/100ml Inj) 100 ml @ As Directed STK-MED ONCE .ROUTE ; Start 06/12/16 at 15:40; Stop 06/12/16 at 15:41; Status DC Midazolam HCl (Versed Inj) 5 mg STK-MED ONCE .ROUTE ; Start 06/12/16 at 15:41; Stop 06/12/16 at 15:42; Status DC Chlorhexidine Gluconate 15 ml 15 ml BID@08,20 MT ; Start 06/12/16 at 20:00; Stop 06/12/16 at 20:00; Status DC Propofol 100 ml @ 0 mls/hr TITRATE IV Last administered on 06/13/16 17:09; Start 06/12/16 at 17:45; Stop 06/19/16 at 08:05; Status DC Fentanyl Citrate 250 ml @ 0 mls/hr TITRATE IV Last administered on 06/12/16 20 :08; Start 06/12/16 at 17:45; Stop 06/19/16 at 08:06; Status DC Levofloxacin/ Dextrose 150 ml @ 100 mls/hr Q24H IV Last administered on 13:05; Start 06/13/16 at 14:00; Stop 06/19/16 at 10:06; Status DC Sodium Chloride 1,000 ml @ 999 mls/hr BOLUS ONCE IV Last administered on 06/13 14:43; Start 06/13/16 at 13:30; Stop 06/13/16 at 14:30; Status DC Sodium Chloride 1,000 ml @ 999 mls/hr BOLUS ONCE IV Last administered on 06/13 14:43; Start 06/13/16 at 13:30; Stop 06/13/16 at 14:30; Status DC Potassium Chloride 10 meq/ Sodium Chloride 1,005 ml @ 75 mls/hr [id number] IV Last administered on 06/22/16 00:24; Start 06/13/16 at 15:00; Stop 06/22/16 at 18:02; Status DC Sodium Chloride 1,000 ml @ 0 mls/hr ONCE ONCE IV Last administered on 08:48; Start 06/15/16 at 07:30; Stop 06/15/16 at 07:31; Status DC Cefazolin Sodium/ Dextrose 50 ml @ 100 mls/hr Q8H IV Last administered on 06/15 12:48; Start 06/15/16 at 12:00; Stop 06/15/16 at 13:13; Status DC Vancomycin HCl 1500 mg/Sodium Chloride 515 ml @ 257.5 mls/ hr ONCE ONCE IV Last administered on 06/15/16 15:12; Start 06/15/16 at 14:00; Stop 06/15/16 at 15:59; Status DC Pharmacy Profile Note 0 ml @ 0 mls/hr UNSCH OTHER ; Start 06/15/16 at 13:00; Stop 06/19/16 at 10:06; Status DC Aztreonam 1000 mg/ Sodium Chloride 100 ml @ 200 mls/hr Q8H IV Last administered on 06/19/16 05:21; Start 06/15/16 at 13:00; Stop 06/19/16 at 10:06 ; Status DC Vancomycin HCl/ Sodium Chloride (Vancomycin Inj/ NS 500 ml Inj) 515 ml @ 257.5 mls/ hr Q12H IV Last administered on 06/17/16 02:49; Start 06/16/16 at 02:00; Stop 06/17/16 at 08:43; Status DC Miscellaneous Information SPECIFIC LAB TO BE DRAWN:VANCO TROUGH DATE TO BE DR... ONCE ONCE .XX Last administered on 06/17/16 01:45; Start 06/17/16 at 01 :45; Stop 06/17/16 at 01:46; Status DC Vancomycin HCl/ Sodium Chloride (Vancomycin Inj/ NS 500 ml Inj) 517.5 ml @ 257.5 mls/ hr Q12H IV Last administered on 06/19/16 03:33; Start 06/17/16 at 14:00; Stop 06/19/16 at 08:51; Status DC Miscellaneous Information SPECIFIC LAB TO BE DRAWN:VANCOMY... ONCE ONCE .XX Last administered on 06/19/16 02:04; Start 06/19/16 at 01:45; Stop 06/19/16 at 01:46; Status DC Miscellaneous Information D/C ICU ELECTROLYTE ORDERS... UNSCH PRN .XX SEE DOSE INSTRUCTIONS; Start 06/17/16 at 10:30; Status Cancel Miscellaneous Information ICU - CALL ORDERING PHYSIC... UNSCH PRN .XX SEE DOSE INSTRUCTIONS; Start 06/17/16 at 10:30; Status Cancel Potassium Chloride (KCl 40 Meq Premix Inj) 100 ml @ 25 mls/hr UNSCH PRN IV ELECTROLYTE REPLACEMENT Last administered on 06/17/16 17:40; Start 06/17/16 at 10:30; Stop 07/08/16 at 09:34; Status DC Potassium Bicarb/ Potassium Chloride 50 meq 50 meq UNSCH PRN PO ELECTROLYTE REPLACEMENT; Start 06/17/16 at 10:30; Status Cancel Potassium Chloride 100 ml @ 50 mls/hr UNSCH PRN IV ELECTROLYTE REPLACEMENT; Start 06/17/16 at 10:30; Status Cancel Magnesium Sulfate 4 gm/Sodium Chloride 108 ml @ 54 mls/hr UNSCH PRN IV ELECTROLYTE REPLACEMENT; Start 06/17/16 at 10:30; Status Cancel Magnesium Sulfate/ Sodium Chloride (Magnesium Sulfate Inj/NS Inj) 104 ml @ 52 mls/hr UNSCH PRN IV ELECTROLYTE REPLACEMENT; Start 06/17/16 at 10:30; Status Cancel Magnesium Oxide 800 mg 800 mg UNSCH PRN PO ELECTROLYTE REPLACEMENT; Start 06/17 at 10:30; Status Cancel Sodium Phosphate/ Sodium Chloride (Sodium Phosphate Inj/NS 250 ml Inj) 260 ml @ 43.333 mls/ hr UNSCH PRN IV ELECTROLYTE REPLACEMENT; Start 06/17/16 at 10:30 ; Status Cancel Potassium Phosphate 2000 mg 2,000 mg UNSCH PRN PO ELECTROLYTE REPLACEMENT; Start 06/17/16 at 10:30; Status Cancel Potassium Phosphate/Sodium Chloride (Potassium Phosphate Inj/NS 250 ml Inj) 260 ml @ 43.333 mls/ hr UNSCH PRN IV ELECTROLYTE REPLACEMENT; Start 06/17/16 at 10 :30; Status Cancel Baclofen (Lioresal) 5 mg Q12HR PO Last administered on 06/21/16 10:58; Start 06/19/16 at 09:00; Stop 06/21/16 at 13:25; Status DC Pregabalin (Lyrica) 150 mg DAILY PO Last administered on 06/21/16 10:58; Start 06/19/16 at 09:00; Stop 06/21/16 at 13:25; Status DC Tizanidine HCl (Zanaflex) 2 mg Q12HR PO Last administered on 06/21/16 10:58; Start 06/19/16 at 09:00; Stop 06/21/16 at 13:25; Status DC Oxycodone HCl 2.5 mg 2.5 mg Q6H PRN PO pain 1-7 Last administered on 06/24/16 13:00; Start 06/19/16 at 08:15; Stop 06/24/16 at 16:18; Status DC Vancomycin HCl/ Sodium Chloride (Vancomycin Inj/ NS 500 ml Inj) 520 ml @ 257.5 mls/ hr Q12H IV ; Start 06/19/16 at 14:00; Stop 06/19/16 at 14:00; Status DC Miscellaneous Information SPECIFIC LAB TO BE DRAWN:VANCOMYCIN TROUGH DATE TO... ONCE ONCE .XX ; Start 06/21/16 at 01:45; Stop 06/21/16 at 01:45; Status DC Cefepime HCl 2000 mg/Sodium Chloride 100 ml @ 200 mls/hr Q12H IV Last administered on 06/26/16 00:00; Start 06/19/16 at 12:00; Stop 06/26/16 at 10:31 ; Status DC Norepinephrine Bitartrate 250 ml @ As Directed STK-MED ONCE IV Last administered on 06/19/16 16:09; Start 06/19/16 at 13:51; Stop 06/19/16 at 13:52 ; Status DC Sodium Chloride 1,000 ml @ 0 mls/hr BOLUS STAT IV ; Start 06/19/16 at 17:58; Stop 06/19/16 at 17:59; Status DC Fluconazole/ Sodium Chloride 200 ml @ 100 mls/hr Q24H IV Last administered on 06/22/16 09:12; Start 06/20/16 at 11:00; Stop 06/22/16 at 14:07; Status DC Vancomycin HCl 1500 mg/Sodium Chloride 515 ml @ 257.5 mls/ hr ONCE ONCE IV ; Start 06/20/16 at 11:00; Stop 06/20/16 at 11:26; Status DC Pharmacy Profile Note 0 ml @ 0 mls/hr UNSCH OTHER ; Start 06/20/16 at 11:00; Stop 06/22/16 at 14:07; Status DC Vancomycin HCl/ Sodium Chloride (Vancomycin Inj/ NS 500 ml Inj) 520 ml @ 250 mls/hr Q12H IV Last administered on 06/22/16 11:46; Start 06/20/16 at 13:00; Stop 06/22/16 at 14:07; Status DC Miscellaneous Information SPECIFIC LAB TO BE DRAWN:VANCO TROUGH DATE TO... ONCE ONCE .XX Last administered on 06/22/16 00:45; Start 06/22/16 at 00:45; Stop 06/22/16 at 00:46; Status DC Baclofen (Lioresal) 5 mg DAILY PO Last administered on 07/13/16 09:29; Start 06/22/16 at 09:00 Pregabalin (Lyrica) 75 mg Q12HR PO Last administered on 07/13/16 09:30; Start 06/22/16 at 09:00 Miscellaneous Information SPECIFIC LAB TO BE ISHAAN... ONCE ONCE .XX ; Start 06/23 at 12:45; Stop 06/23/16 at 12:45; Status DC Oxycodone HCl (Roxicodone) 2.5 mg Q4H PRN PO pain 1-6 Last administered on 07/13 09:30; Start 06/24/16 at 17:00 Polyethylene Glycol (Miralax) 17 gm BID PRN PO CONSTIPATION; Start 07/07/16 at 11:00 Propofol (Diprivan 200 Mg/20 ml Inj) 200 mg STK-MED ONCE IV ; Start 06/20/16 at 11:14; Stop 07/10/16 at 11:14; Status DC Ondansetron HCl (Zofran Inj) 4 mg STK-MED ONCE IV PUSH ; Start 06/20/16 at 11:14 ; Stop 07/10/16 at 11:14; Status DC Date of Removal: Jun 29, 2016 A/P Assessment and Plan A/P - Acute respiratory failure mixed - hypercarbic and hypoxemic. - Probable obstructive sleep apnea - Obesity hypoventilation syndrome. - s/p Tracheostomy - On T-piece, O2 sat stable, trach collar, keep O2 sat > 92% - Pulmonary following - Continue DuoNeb treatments. 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 - Currently on Baclofen 5mg daily, Lyrica 75mg bid, with oxycodone 2.5mg po q4h prn pain - Diabetes mellitus type 2 with neuropathy - HgbA1c 7.4 in . Goal glucose 140-180. - Continue Levemir 5 units QHS . - Blood glucose well controlled - Continue Accu-cheks bid - continue Lyrica and Baclofen for neuropathy - Nutrition: s/p PEG tube placed initially on 05/[address] Faith - 06/09-pt complains of irritation/drainage/discomfort at PEG insertion site, he is tolerating all meals and medications by mouth - PEG removed 06/[address] Munson - Transaminitis: LFTs improved, abdominal pain resolved. - Liver US shows fatty liver. Small stones or tumefactive sludge adherent to one of the gallbladder arcos. Splenomegaly. - Avoid hepatotoxins - Hep panel negative - Wound on anterior neck 04/05 trach collar, stage III: Patient has a short and large neck. -Optifoam in place. -Apply bacitracin. -Wound cultures with normal sherine. -wound care following. - Morbid Obesity with BMI 51.8 on admission -encouraged weight loss - Left Shoulder Pain: with decreased ROM. Xrays negative for fracture/ dislocations. - continue PT - continue pain control with oxycodone 2.5mg po q4h prn - Placement efforts in progress. Case management assisting. Full code. Lovenox. clinically no change. continue with current care. Discharge Planning needs SNF placement. dc planning in progress. Mg Stearns MD July 13, 2016 12:18
--- NOTE | 2016-07-13 18:39 | HHI.PR ---
Subjective Remarks 50 YO morbidly obese male s/p RF, Trach On trach collar No distress Awake, follows commands Appetite great Objective Vital Signs Vital Signs Date Time Temp Pulse Resp B/P Pulse Ox O2 Delivery O2 Flow Rate FiO2 07/13/16 16:00 99.1 96 20 122/66 94 07/13/16 12:00 98.3 94 20 116/59 94 07/13/16 08:20 95 T-piece 28 07/13/16 08:15 81 07/13/16 08:00 98.0 97 20 111/69 92 07/13/16 07:15 Trach Collar 5.00 28 T-Piece 07/13/16 04:00 97.8 87 20 120/74 93 07/13/16 00:00 97.6 88 20 114/66 93 07/13/16 00:00 Trach Collar 5.00 28 T-Piece 07/12/16 22:00 98 T-piece 5.00 28 07/12/16 20:00 Trach Collar 5.00 28 T-Piece 07/12/16 20:00 97.8 85 20 113/58 96 07/12/16 20:00 90 I/O 07/12/16 07/12/16 07/12/16 07/13/16 07/13/16 07/13/16 07:00 15:00 23:00 07:00 15:00 23:00 Intake Total 480 ml 240 ml 720 ml Output Total 500 ml 425 ml 500 ml 225 ml Balance -500 ml 55 ml -260 ml 495 ml Intake Oral 480 ml 240 ml 720 ml IV Total 0 ml 0 ml Output Urine Total 500 ml 425 ml 500 ml 225 ml # Bowel Movements 0 0 0 Objective Remarks GENERAL: Morbidly obese male trach collar SKIN: Warm and dry. HEAD: Normocephalic. EYES: No scleral icterus. No injection or drainage. NECK: Supple, trachea midline. No JVD or lymphadenopathy. CARDIOVASCULAR: Regular rate and rhythm without murmurs, gallops, or rubs. RESPIRATORY: Breath sounds equal bilaterally. No accessory muscle use. GASTROINTESTINAL: Abdomen soft, non-tender, nondistended. MUSCULOSKELETAL: No cyanosis, or edema. BACK: Nontender without obvious deformity. No CVA tenderness. A/P Assessment and Plan S/P trach ARDS-resolved Pneumonia JACOB PLAN: Trach collar Aerosol nebs Supplement 02 to keep sat >90% cont Abx Aneja,Musa Dev MD July 13, 2016 18:39
[2016-07-13] MEDS: INSULIN DETEMIR 100 UNITS/ML VIAL SQ SCH (20:28)
[2016-07-14] VITALS (8 sets, daily range): BP systolic 103–126; BP diastolic 58–67; PULSE 81–100; RESP 18–20; TEMP 97.9–99.1; O2SAT 92–96
[2016-07-14] MEDS: ARTIFICIAL TEARS OPTH SOLN 15 ML BTL EACH EYE SCH ×6 (02:00→21:15)
[2016-07-14] MEDS: ENOXAPARIN SODIUM 40 MG/0.4 ML SYRINGE SQ SCH ×2 (05:47→16:41)
[2016-07-14] MEDS: PREGABALIN 75 MG CAP PO SCH ×2 (08:20→21:12)
[2016-07-14] MEDS: BACLOFEN 10 MG TAB PO SCH (08:20)
[2016-07-14] MEDS: DOCUSATE SODIUM 100 MG/10 ML UDC PO SCH ×2 (08:20→21:12)
[2016-07-14] MEDS: BENEPROTEIN POWDER 1 PACK G-TUBE SCH ×3 (08:20→16:41)
[2016-07-14] MEDS: PANTOPRAZOLE SOD 40 MG DELAYED RELEASE TAB PO SCH (08:20)
[2016-07-14] MEDS: NYSTATIN 100,000 U/GM PWD 15 GM BTL TOPICAL SCH ×2 (08:21→21:15)
[2016-07-14] MEDS: SILVER SULFADIAZINE 1% CR 400 GM JAR TOPICAL SCH (08:21)
[2016-07-14] MEDS: SODIUM CHLORIDE 0.9% FLUSH 5 ML FLUSH IVF SCH (08:25)
[2016-07-14] MEDS: BETAMETHASONE/CLOTRIMAZOLE CREAM 15 GM TOPICAL SCH ×2 (08:26→21:00)
--- NOTE | 2016-07-14 12:59 | HHI.PR ---
Subjective Remarks Follow up shortness of breath. Patient seen and examined. Patient lying in bed on t-piece comfortably, in no distress. He denies any new acute complaints. Tolerating t-piece. Denies any recent fever, chills, cough, shortness of breath , nausea, vomiting, or diarrhea. Objective Vitals Vital Signs Date Time Temp Pulse Resp B/P Pulse Ox O2 Delivery O2 Flow Rate FiO2 07/14/16 11:57 97.9 82 20 126/67 94 07/14/16 08:20 94 T-piece 35 07/14/16 08:19 98.3 92 20 121/67 95 07/14/16 08:00 94 T-Piece 5.00 28 07/14/16 08:00 88 07/14/16 04:00 98.5 92 20 108/62 93 07/14/16 04:00 Trach Collar 5.00 28 T-Piece 07/14/16 00:49 99.0 99 20 103/65 92 07/14/16 00:00 Trach Collar 5.00 28 T-Piece 07/13/16 20:22 95 T-piece 28 07/13/16 20:20 95 T-piece 28 07/13/16 20:00 Trach Collar 5.00 28 T-Piece 07/13/16 20:00 98.3 99 20 115/65 93 07/13/16 20:00 92 07/13/16 16:00 99.1 96 20 122/66 94 I/O 07/13/16 07/13/16 07/13/16 07/14/16 07/14/16 07/14/16 07:00 15:00 23:00 07:00 15:00 23:00 Intake Total 240 ml 720 ml 360 ml Output Total 500 ml 225 ml 300 ml Balance -260 ml 495 ml 360 ml -300 ml Intake Oral 240 ml 720 ml 360 ml IV Total 0 ml Output Urine Total 500 ml 225 ml 300 ml # Voids 1 # Bowel Movements 0 Imaging Last Impressions Chest X-Ray 06/30/16 0600 Signed Impressions: Service Date/Time: Thursday, June 30, 2016 06:07 - CONCLUSION: No significant change. Mild bilateral perihilar and basilar consolidation again noted. Ubaldo Ortiz MD Shoulder X-Ray 06/28/16 0000 Signed Impressions: Service Date/Time: June 15:12 - CONCLUSION: 1. Limited but negative examination of the shoulder. Kyaw Rojo MD Abdomen X-Ray 06/19/16 0000 Signed Impressions: Service Date/Time: Sunday, June 19, 2016 10:43 - CONCLUSION: Gastric tube tip does not cross the diaphragm and the side port is approximately 8 cm above the diaphragm. Chano Goodwin MD Lower Extremity Ultrasound 06/04/16 0000 Signed Impressions: Service Date/Time: Saturday, June 04, 2016 14:54 - CONCLUSION: 1. No DVT identified. Dc Barton MD Liver Ultrasound 05/09/16 0000 Signed Impressions: Service Date/Time: Monday, May 09, 2016 22:28 - CONCLUSION: 1. Enlarged, fatty liver. 2. Small stones or tumefactive sludge adherent to one of the gallbladder arcos. 3. Splenomegaly. 4. Pancreas is obscured by overlying bowel gas and patient's body habitus. Arthur Kennedy MD Chest CT 03/28/16 0836 Signed Impressions: Service Date/Time: Monday, March 28, 2016 09:57 - CONCLUSION: Development areas of air bronchograms and consolidation more prominent in the right and left posterior basilar segments of the lower lobes. ET tube above the chanelle. Bernard Hartman MD CT Angiography 03/24/16 1121 Signed Impressions: Service Date/Time: Thursday, March 24, 2016 12:47 - CONCLUSION: 1. There is respiratory motion artifact but no PE is identified through most of the segmental level pulmonary arteries. 2. Mildly enlarged main pulmonary artery may indicate pulmonary arterial hypertension. 3. 11 mm left lower lobe noncalcified pulmonary nodule. Suggest correlation with any prior imaging studies that could confirm longer-term stability. If none are available consider short-term followup noncontrast chest CT in approximately 3 months. Ubaldo Rodas MD Objective Remarks GENERAL: Morbidly obese, well-developed patient lying in bed with trach collar, in NAD. CARDIOVASCULAR: Regular rate and rhythm. No murmur appreciated. RESPIRATORY: No accessory muscle use. Airway noise noted due to trach collar humidified oxygen. Breath sounds equal bilaterally. GASTROINTESTINAL: Abdomen soft, non-tender, nondistended. Normoactive bowel sounds x 4. MUSCULOSKELETAL: No obvious deformities. Extremities without clubbing, cyanosis , or edema. NEUROLOGICAL: Awake and alert. No obvious cranial nerve deficits. Normal speech. PSYCHIATRIC: Appropriate mood and affect; insight and judgment normal. Procedures 04/30/16 - tracheostomy by Dr. Reyes 05/03/16 - EGD with PEG placement by Dr. Faith 06/09/16 - PEG removal 06/21/16- repeat tracheostomy by Dr. Cuellar Date of Removal: Jun 29, 2016 A/P Problem List: (1) Acute hypercapnic respiratory failure ICD Code: J96.02 Status: Acute (2) Staphylococcus aureus pneumonia ICD Code: J15.211 Status: Acute (3) Encephalopathy ICD Code: G93.40 Status: Acute (4) JACOB (obstructive sleep apnea) ICD Code: G47.33 Status: Acute (5) Diabetes mellitus type 2 in obese ICD Code: E11.9 Status: Acute (6) Morbid obesity with BMI of 50.0-59.9, adult ICD Code: E66.01 Status: Acute (7) Obesity hypoventilation syndrome ICD Code: E66.2 Status: Acute Assessment and Plan update in medical management 07/14/16: no new changes. awaiting for placement, CM assisting Acute respiratory failure mixed hypercarbic and hypoxemic Probable obstructive sleep apnea Obesity hypoventilation syndrome - Status post Tracheostomy. - On 35% FiO2 T-piece, O2 sat stable, trach collar, keep O2 sat > 92%. - Pulmonary following. - Continue DuoNeb treatments. Pneumonia with Staph Aureus, resolved. ID signed off. 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 - Continue Baclofen 5mg daily, Lyrica 75mg bid, with oxycodone 2.5mg PO q4h PRN per pain scale. Diabetes mellitus type 2 with neuropathy - HgbA1c 7.4 in . Goal glucose 140-180. - Continue Levemir 5 units QHS . - Blood glucose well controlled - Continue Accu-checks BID. - Continue Lyrica and Baclofen for neuropathy. Nutrition: status post PEG tube placed initially on 05/[address] Faith - 06/09/16: pt complains of irritation/drainage/discomfort at PEG insertion site, tolerating PO intake. - PEG removed 06/09/[address] Munson. Transaminitis: LFTs improved, abdominal pain resolved. - Liver US shows fatty liver. Small stones or tumefactive sludge adherent to one of the gallbladder arcos. Splenomegaly. - Avoid hepatotoxins. - Hepatitis panel negative. Wound on anterior neck 2/2 trach collar, stage III: Patient has a short and large neck. - Optifoam in place. - Apply bacitracin. - Wound cultures with normal sherine. - Wound care following, last saw patient 07/03. Morbid Obesity with BMI 51.8 on admission: Encouraged weight loss Left Shoulder Pain: with decreased ROM. - Xrays negative for fracture/dislocations. - Continue PT - Continue pain control with oxycodone 2.5mg po q4h prn Placement efforts in progress. Case management assisting. DVT prophylaxis: Lovenox. Full code. Written by Gaby Gupta, acting as scribe for Dr. Cui on 07/14/16 at 14:26. This note was transcribed by scribe Gaby Gupta. I, Dr. Cori Cui personally performed the history, physical exam, and medical decision making; and confirmed the accuracy of the information in the transcribed note. Authenticated by Dr. Cori Cui on 07/14/16 at 14:26. Discharge Planning CM assisting w d/c planning Gaby Gupta July 14, 2016 12:59 Cori Cui MD July 14, 2016 22:16
[2016-07-14] MEDS: INSULIN DETEMIR 100 UNITS/ML VIAL SQ SCH (21:14)
[2016-07-15] VITALS (9 sets, daily range): BP systolic 94–121; BP diastolic 52–94; PULSE 78–92; RESP 18–20; TEMP 98.1–99.1; O2SAT 93–100
[2016-07-15] MEDS: ARTIFICIAL TEARS OPTH SOLN 15 ML BTL EACH EYE SCH ×6 (02:00→21:39)
[2016-07-15] MEDS: ENOXAPARIN SODIUM 40 MG/0.4 ML SYRINGE SQ SCH ×2 (05:05→18:17)
[2016-07-15] MEDS: SILVER SULFADIAZINE 1% CR 400 GM JAR TOPICAL SCH (09:00)
[2016-07-15] MEDS: BETAMETHASONE/CLOTRIMAZOLE CREAM 15 GM TOPICAL SCH ×2 (09:00→21:39)
[2016-07-15] MEDS: SODIUM CHLORIDE 0.9% FLUSH 5 ML FLUSH IVF SCH (09:00)
[2016-07-15] MEDS: NYSTATIN 100,000 U/GM PWD 15 GM BTL TOPICAL SCH ×2 (09:00→21:38)
[2016-07-15] MEDS: DOCUSATE SODIUM 100 MG/10 ML UDC PO SCH ×2 (09:00→21:00)
[2016-07-15] MEDS: PREGABALIN 75 MG CAP PO SCH ×2 (10:04→21:36)
[2016-07-15] MEDS: PANTOPRAZOLE SOD 40 MG DELAYED RELEASE TAB PO SCH (10:04)
[2016-07-15] MEDS: BACLOFEN 10 MG TAB PO SCH (10:06)
[2016-07-15] MEDS: BENEPROTEIN POWDER 1 PACK G-TUBE SCH ×3 (10:10→18:19)
--- NOTE | 2016-07-15 13:00 | HHI.PR ---
Subjective Remarks The patient has been seen and examined this morning. T piece in place, FiO2 35% . Oxygen saturation 98%. Patient without any concerns or complaints or concerns this morning. Denies CP, SOB or difficulty breathing. Objective Vital Signs Date Time Temp Pulse Resp B/P Pulse Ox O2 Delivery O2 Flow Rate FiO2 07/15/16 10:13 98 T-piece 6.00 35 07/15/16 08:15 T-Piece 6.00 28 07/15/16 08:00 98.2 87 20 100/52 93 07/15/16 07:58 79 07/15/16 04:00 T-Piece 6.00 28 07/15/16 04:00 98.2 92 20 112/59 95 07/15/16 00:00 T-Piece 6.00 28 07/15/16 00:00 99.1 90 18 103/94 100 07/14/16 20:00 T-Piece 6.00 28 07/14/16 20:00 84 07/14/16 20:00 99.1 100 18 119/60 96 07/14/16 16:13 98.3 81 20 113/58 96 I/O 07/14/16 07/14/16 07/14/16 07/15/16 07/15/16 07/15/16 07:00 15:00 23:00 07:00 15:00 23:00 Intake Total 240 ml Output Total 300 ml 200 ml 850 ml Balance -300 ml -200 ml -610 ml Intake Oral 240 ml Output Urine Total 300 ml 200 ml 850 ml # Voids 1 1 Imaging Last Impressions Chest X-Ray 06/30/16 0600 Signed Impressions: Service Date/Time: Thursday, June 30, 2016 06:07 - CONCLUSION: No significant change. Mild bilateral perihilar and basilar consolidation again noted. Ubaldo Ortiz MD Shoulder X-Ray 06/28/16 0000 Signed Impressions: Service Date/Time: June 15:12 - CONCLUSION: 1. Limited but negative examination of the shoulder. Kyaw Rojo MD Abdomen X-Ray 06/19/16 0000 Signed Impressions: Service Date/Time: Sunday, June 19, 2016 10:43 - CONCLUSION: Gastric tube tip does not cross the diaphragm and the side port is approximately 8 cm above the diaphragm. Chano Goodwin MD Lower Extremity Ultrasound 06/04/16 0000 Signed Impressions: Service Date/Time: Saturday, June 04, 2016 14:54 - CONCLUSION: 1. No DVT identified. Dc Barton MD Liver Ultrasound 05/09/16 0000 Signed Impressions: Service Date/Time: Monday, May 09, 2016 22:28 - CONCLUSION: 1. Enlarged, fatty liver. 2. Small stones or tumefactive sludge adherent to one of the gallbladder arcos. 3. Splenomegaly. 4. Pancreas is obscured by overlying bowel gas and patient's body habitus. Arthur Kennedy MD Chest CT 03/28/16 0836 Signed Impressions: Service Date/Time: Monday, March 28, 2016 09:57 - CONCLUSION: Development areas of air bronchograms and consolidation more prominent in the right and left posterior basilar segments of the lower lobes. ET tube above the chanelle. Bernard Hartman MD CT Angiography 03/24/16 1121 Signed Impressions: Service Date/Time: Thursday, March 24, 2016 12:47 - CONCLUSION: 1. There is respiratory motion artifact but no PE is identified through most of the segmental level pulmonary arteries. 2. Mildly enlarged main pulmonary artery may indicate pulmonary arterial hypertension. 3. 11 mm left lower lobe noncalcified pulmonary nodule. Suggest correlation with any prior imaging studies that could confirm longer-term stability. If none are available consider short-term followup noncontrast chest CT in approximately 3 months. Ubaldo Rodas MD Procedures 04/30/16 - tracheostomy by Dr. Reyes 05/03/16 - EGD with PEG placement by Dr. Faith 06/09/16 - PEG removal 06/21/16- repeat tracheostomy by Dr. Cuellar Objective Remarks GENERAL: Morbidly obese, well-developed patient lying in bed with trach collar, in NAD. CARDIOVASCULAR: Regular rate and rhythm. No murmur appreciated. RESPIRATORY: No accessory muscle use. Breath sounds equal bilaterally. GASTROINTESTINAL: Abdomen soft, non-tender, nondistended. Normoactive bowel sounds x 4. MUSCULOSKELETAL: No obvious deformities. Extremities without clubbing, cyanosis , or edema. NEUROLOGICAL: Awake and alert. No obvious cranial nerve deficits. Normal speech. PSYCHIATRIC: Appropriate mood and affect; insight and judgment normal. A/P Problem List: (1) Encephalopathy ICD Code: G93.40 (2) Hypoxia ICD Code: R09.02 (3) JACOB (obstructive sleep apnea) ICD Code: G47.33 (4) Diabetes mellitus type 2 in obese ICD Code: E11.9 (5) Obesity hypoventilation syndrome ICD Code: E66.2 (6) Morbid obesity with BMI of 50.0-59.9, adult ICD Code: E66.01 (7) Acute hypercapnic respiratory failure ICD Code: J96.02 Assessment and Plan 50-year-old male with Acute respiratory failure mixed hypercarbic and hypoxemic Probable obstructive sleep apnea Obesity hypoventilation syndrome - Status post Tracheostomy. - On 35% FiO2 T-piece, O2 sat stable, trach collar, keep O2 sat > 92%. - Pulmonary following. - Continue DuoNeb treatments. Pneumonia with Staph Aureus, resolved. ID signed off. 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 - Continue Baclofen 5mg daily, Lyrica 75mg bid, with oxycodone 2.5mg PO q4h PRN per pain scale. Diabetes mellitus type 2 with neuropathy - HgbA1c 7.4 in . Goal glucose 140-180. - Continue Levemir 5 units QHS . - Blood glucose well controlled - Continue Accu-checks BID. - Continue Lyrica and Baclofen for neuropathy. Nutrition: status post PEG tube placed initially on 05/[address] Faith - 06/09/16: pt complains of irritation/drainage/discomfort at PEG insertion site, tolerating PO intake. - PEG removed 06/09/[address] Munson. Transaminitis: LFTs improved, abdominal pain resolved. - Liver US shows fatty liver. Small stones or tumefactive sludge adherent to one of the gallbladder arcos. Splenomegaly. - Avoid hepatotoxins. - Hepatitis panel negative. 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 - Optifoam in place. - Apply bacitracin. - Wound cultures with normal sherine. - Wound care following, last saw patient 07/03. Morbid Obesity with BMI 51.8 on admission: Encouraged weight loss Left Shoulder Pain: with decreased ROM. - Xrays negative for fracture/dislocations. - Continue PT - Continue pain control with oxycodone 2.5mg po q4h prn DVT prophylaxis: Lovenox. Discharge Planning Placement efforts in progress. Per patient's management on 511 numerous referrals placed with no except in facility. Yelena Castro MD R3 July 15, 2016 13:00
[2016-07-15] MEDS: INSULIN DETEMIR 100 UNITS/ML VIAL SQ SCH (21:37)
[2016-07-16] VITALS (9 sets, daily range): BP systolic 90–123; BP diastolic 51–69; PULSE 80–90; RESP 18–22; TEMP 98–98.9; O2SAT 93–99
[2016-07-16] MEDS: ARTIFICIAL TEARS OPTH SOLN 15 ML BTL EACH EYE SCH ×7 (02:00→21:37)
[2016-07-16] MEDS: ENOXAPARIN SODIUM 40 MG/0.4 ML SYRINGE SQ SCH ×2 (05:42→17:20)
[2016-07-16] MEDS: BENEPROTEIN POWDER 1 PACK G-TUBE SCH ×3 (09:00→17:20)
[2016-07-16] MEDS: SODIUM CHLORIDE 0.9% FLUSH 5 ML FLUSH IVF SCH (09:00)
[2016-07-16] MEDS: DOCUSATE SODIUM 100 MG/10 ML UDC PO SCH ×2 (09:00→21:00)
[2016-07-16] MEDS: BACLOFEN 10 MG TAB PO SCH (09:10)
[2016-07-16] MEDS: PREGABALIN 75 MG CAP PO SCH ×2 (09:10→21:37)
[2016-07-16] MEDS: PANTOPRAZOLE SOD 40 MG DELAYED RELEASE TAB PO SCH (09:10)
[2016-07-16] MEDS: NYSTATIN 100,000 U/GM PWD 15 GM BTL TOPICAL SCH ×2 (09:11→21:00)
[2016-07-16] MEDS: BETAMETHASONE/CLOTRIMAZOLE CREAM 15 GM TOPICAL SCH ×2 (09:11→21:00)
[2016-07-16] MEDS: SILVER SULFADIAZINE 1% CR 400 GM JAR TOPICAL SCH (09:13)
--- NOTE | 2016-07-16 11:35 | HHI.PR ---
Subjective Remarks Follow up for chronic respiratory failure. Mr. Leger is doing well. Sitting in his chair. No acute concerns. Tolerating diet well. Objective Vitals Vital Signs Date Time Temp Pulse Resp B/P Pulse Ox O2 Delivery O2 Flow Rate FiO2 07/16/16 08:00 98.4 87 18 123/57 93 07/16/16 08:00 Trach Collar 6.00 35 T-Piece 07/16/16 04:00 98.4 80 22 109/61 94 07/16/16 00:00 98.3 90 20 104/58 97 07/15/16 20:00 T-Piece 6.00 35 07/15/16 20:00 98.5 88 20 94/63 98 07/15/16 19:52 90 07/15/16 17:45 T-piece 6.00 35 07/15/16 16:00 98.1 82 20 121/70 100 07/15/16 12:00 98.5 78 20 101/52 96 I/O 07/15/16 07/15/16 07/15/16 07/16/16 07/16/16 07/16/16 07:00 15:00 23:00 07:00 15:00 23:00 Intake Total 1500 ml 500 ml 200 ml Output Total 1300 ml 600 ml 650 ml Balance 200 ml -100 ml -450 ml Intake Oral 1500 ml 500 ml 200 ml Output Urine Total 1300 ml 600 ml 650 ml # Bowel Movements 0 0 0 Imaging Last Impressions Chest X-Ray 06/30/16 0600 Signed Impressions: Service Date/Time: Thursday, June 30, 2016 06:07 - CONCLUSION: No significant change. Mild bilateral perihilar and basilar consolidation again noted. Ubaldo Ortiz MD Shoulder X-Ray 06/28/16 0000 Signed Impressions: Service Date/Time: June 15:12 - CONCLUSION: 1. Limited but negative examination of the shoulder. Kyaw Rojo MD Abdomen X-Ray 06/19/16 0000 Signed Impressions: Service Date/Time: Sunday, June 19, 2016 10:43 - CONCLUSION: Gastric tube tip does not cross the diaphragm and the side port is approximately 8 cm above the diaphragm. Chano Goodwin MD Lower Extremity Ultrasound 06/04/16 0000 Signed Impressions: Service Date/Time: Saturday, June 04, 2016 14:54 - CONCLUSION: 1. No DVT identified. Dc Barton MD Liver Ultrasound 05/09/16 0000 Signed Impressions: Service Date/Time: Monday, May 09, 2016 22:28 - CONCLUSION: 1. Enlarged, fatty liver. 2. Small stones or tumefactive sludge adherent to one of the gallbladder arcos. 3. Splenomegaly. 4. Pancreas is obscured by overlying bowel gas and patient's body habitus. Arthur Kennedy MD Chest CT 03/28/16 0836 Signed Impressions: Service Date/Time: Monday, March 28, 2016 09:57 - CONCLUSION: Development areas of air bronchograms and consolidation more prominent in the right and left posterior basilar segments of the lower lobes. ET tube above the chanelle. Bernard Hartman MD CT Angiography 03/24/16 1121 Signed Impressions: Service Date/Time: Thursday, March 24, 2016 12:47 - CONCLUSION: 1. There is respiratory motion artifact but no PE is identified through most of the segmental level pulmonary arteries. 2. Mildly enlarged main pulmonary artery may indicate pulmonary arterial hypertension. 3. 11 mm left lower lobe noncalcified pulmonary nodule. Suggest correlation with any prior imaging studies that could confirm longer-term stability. If none are available consider short-term followup noncontrast chest CT in approximately 3 months. Ubaldo Rodas MD Objective Remarks GENERAL: Alert, NAD. SKIN: Warm and dry. HEAD: Normocephalic. EYES: No scleral icterus. No injection or drainage. NECK: Supple, trachea midline. No JVD or lymphadenopathy. CARDIOVASCULAR: Regular rate and rhythm without murmurs, gallops, or rubs. RESPIRATORY: Poor air movement. No accessory muscle use. on T piece. GASTROINTESTINAL: Abdomen soft, non-tender, nondistended. MUSCULOSKELETAL: No cyanosis. Trace edema in lower ext. BACK: Nontender without obvious deformity. No CVA tenderness. Procedures 04/30/16 - tracheostomy by Dr. Reyes 05/03/16 - EGD with PEG placement by Dr. Faith 06/09/16 - PEG removal 06/21/16- repeat tracheostomy by Dr. Cuellar Date of Removal: Jun 29, 2016 A/P Problem List: (1) Acute hypercapnic respiratory failure ICD Code: J96.02 Status: Acute (2) Staphylococcus aureus pneumonia ICD Code: J15.211 Status: Acute (3) Encephalopathy ICD Code: G93.40 Status: Acute (4) JACOB (obstructive sleep apnea) ICD Code: G47.33 Status: Acute (5) Diabetes mellitus type 2 in obese ICD Code: E11.9 Status: Acute (6) Morbid obesity with BMI of 50.0-59.9, adult ICD Code: E66.01 Status: Acute (7) Obesity hypoventilation syndrome ICD Code: E66.2 Status: Acute Assessment and Plan Mr. Leger is a pleasant 50 year old male with a history of sleep apnea, morbid obesity, DM 2 who was admitted to the hospital on 03/24/2016 due to lightheadedness and dizziness. Initial work up indicated hypercarbia as well as hypoxemia. His O2 sat was 78% in the ED. CTA was negative for PE. He was started on BiPAP. However, due to unsatisfactory response, patient was intubated after neuromuscular paralysis using succinylcholine. Tracheostomy was done on 04/30/2016. Patient remained in the ICU until 05/07/2016. Patient went into acute respiratory failure again on 05/27/2016 and subsequently he was transferred back to ICU. Trach was exchanged on 05/27/2016 and he remained on mechanical ventilation. He was weaned off mechanical ventilation after tolerating CPAP trials. He was placed on T piece trial and tolerated that well. He was subsequently transferred to hospitalist service on 06/05/2016. Acute respiratory failure mixed hypercarbic and hypoxemic Probable obstructive sleep apnea Obesity hypoventilation syndrome - Status post Tracheostomy. - On 35% FiO2 T-piece, O2 sat stable, trach collar, keep O2 sat > 92%. - Pulmonary following. - Continue DuoNeb treatments. Pneumonia with Staph Aureus, resolved. ID signed off. 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 - Continue Baclofen 5mg daily, Lyrica 75mg bid, with oxycodone 2.5mg PO q4h PRN per pain scale. Diabetes mellitus type 2 with neuropathy - HgbA1c 7.4 in . Goal glucose 140-180. - Continue Levemir 5 units QHS . - Blood glucose well controlled - Continue Accu-checks BID. - Continue Lyrica and Baclofen for neuropathy. Nutrition: status post PEG tube placed initially on 05/[address] Faith - 06/09/16: pt complains of irritation/drainage/discomfort at PEG insertion site, tolerating PO intake. - PEG removed 06/09/[address] Munson. Transaminitis: LFTs improved, abdominal pain resolved. - Liver US shows fatty liver. Small stones or tumefactive sludge adherent to one of the gallbladder arcos. Splenomegaly. - Avoid hepatotoxins. - Hepatitis panel negative. Wound on anterior neck 04/05 trach collar, stage III: Patient has a short and large neck. - Optifoam in place. - Apply bacitracin. - Wound cultures with normal sherine. - Wound care following, last saw patient 07/03. Morbid Obesity with BMI 51.8 on admission: Encouraged weight loss Left Shoulder Pain: with decreased ROM. - Xrays negative for fracture/dislocations. - Continue PT - Continue pain control with oxycodone 2.5mg po q4h prn Full code. DVT prophylaxis: Lovenox. No significant change in management. Continue placement efforts. Jody Briones DO July 16, 2016 11:35
[2016-07-16] MEDS: INSULIN DETEMIR 100 UNITS/ML VIAL SQ SCH (21:36)
[2016-07-17] VITALS (8 sets, daily range): BP systolic 107–124; BP diastolic 57–71; PULSE 74–92; RESP 18–20; TEMP 97.4–98.5; O2SAT 95–98
[2016-07-17] MEDS: ARTIFICIAL TEARS OPTH SOLN 15 ML BTL EACH EYE SCH ×6 (02:00→20:16)
[2016-07-17] MEDS: ENOXAPARIN SODIUM 40 MG/0.4 ML SYRINGE SQ SCH ×2 (05:55→17:35)
[2016-07-17] MEDS: BENEPROTEIN POWDER 1 PACK G-TUBE SCH ×3 (09:00→17:43)
[2016-07-17] MEDS: BETAMETHASONE/CLOTRIMAZOLE CREAM 15 GM TOPICAL SCH ×2 (09:00→20:15)
[2016-07-17] MEDS: NYSTATIN 100,000 U/GM PWD 15 GM BTL TOPICAL SCH ×2 (09:00→20:16)
[2016-07-17] MEDS: SODIUM CHLORIDE 0.9% FLUSH 5 ML FLUSH IVF SCH (09:00)
[2016-07-17] MEDS: PREGABALIN 75 MG CAP PO SCH ×2 (10:03→20:13)
[2016-07-17] MEDS: DOCUSATE SODIUM 100 MG/10 ML UDC PO SCH ×2 (10:03→20:12)
[2016-07-17] MEDS: PANTOPRAZOLE SOD 40 MG DELAYED RELEASE TAB PO SCH (10:03)
[2016-07-17] MEDS: BACLOFEN 10 MG TAB PO SCH (10:03)
[2016-07-17] MEDS: SILVER SULFADIAZINE 1% CR 400 GM JAR TOPICAL SCH (10:05)
--- NOTE | 2016-07-17 12:47 | HHI.PR ---
Subjective Remarks Follow up for chronic respiratory failure. Pt denied change agent night. He denied cough, shortness of breath, fever, nausea or vomiting. He indicated he is getting up and ambulating to the chair next to his bed. He denied blood in his urine or stool. No other issues noted or reported by pt. Objective Vitals Vital Signs Date Time Temp Pulse Resp B/P Pulse Ox O2 Delivery O2 Flow Rate FiO2 07/17/16 08:00 98.2 74 20 109/61 96 07/17/16 05:05 98.1 80 18 113/64 98 07/17/16 05:05 T-Piece 6.00 40 07/17/16 00:45 98.2 83 18 124/57 95 07/17/16 00:45 T-Piece 6.00 40 07/16/16 21:25 94 T-piece 40 07/16/16 20:40 98.3 89 20 106/51 95 07/16/16 20:40 T-Piece 6.00 40 07/16/16 16:00 98.9 90 20 119/69 99 07/16/16 15:47 18 I/O 07/16/16 07/16/16 07/16/16 07/17/16 07/17/16 07/17/16 07:00 15:00 23:00 07:00 15:00 23:00 Intake Total 200 ml 480 ml Output Total 650 ml 700 ml 150 ml 450 ml Balance -450 ml -220 ml -150 ml -450 ml Intake Oral 200 ml 480 ml Output Urine Total 650 ml 700 ml 150 ml 450 ml # Bowel Movements 0 0 0 0 Imaging Last Impressions Chest X-Ray 06/30/16 0600 Signed Impressions: Service Date/Time: Thursday, June 30, 2016 06:07 - CONCLUSION: No significant change. Mild bilateral perihilar and basilar consolidation again noted. Ubaldo Ortiz MD Shoulder X-Ray 06/28/16 0000 Signed Impressions: Service Date/Time: June 15:12 - CONCLUSION: 1. Limited but negative examination of the shoulder. Kyaw Rojo MD Abdomen X-Ray 06/19/16 0000 Signed Impressions: Service Date/Time: Sunday, June 19, 2016 10:43 - CONCLUSION: Gastric tube tip does not cross the diaphragm and the side port is approximately 8 cm above the diaphragm. Chano Goodwin MD Lower Extremity Ultrasound 06/04/16 0000 Signed Impressions: Service Date/Time: Saturday, June 04, 2016 14:54 - CONCLUSION: 1. No DVT identified. Dc Barton MD Liver Ultrasound 05/09/16 0000 Signed Impressions: Service Date/Time: Monday, May 09, 2016 22:28 - CONCLUSION: 1. Enlarged, fatty liver. 2. Small stones or tumefactive sludge adherent to one of the gallbladder arcos. 3. Splenomegaly. 4. Pancreas is obscured by overlying bowel gas and patient's body habitus. Arthur Kennedy MD Chest CT 03/28/16 0836 Signed Impressions: Service Date/Time: Monday, March 28, 2016 09:57 - CONCLUSION: Development areas of air bronchograms and consolidation more prominent in the right and left posterior basilar segments of the lower lobes. ET tube above the chanelle. Bernard Hartman MD CT Angiography 03/24/16 1121 Signed Impressions: Service Date/Time: Thursday, March 24, 2016 12:47 - CONCLUSION: 1. There is respiratory motion artifact but no PE is identified through most of the segmental level pulmonary arteries. 2. Mildly enlarged main pulmonary artery may indicate pulmonary arterial hypertension. 3. 11 mm left lower lobe noncalcified pulmonary nodule. Suggest correlation with any prior imaging studies that could confirm longer-term stability. If none are available consider short-term followup noncontrast chest CT in approximately 3 months. Ubaldo Rodas MD Objective Remarks GENERAL: Pt laying abed, awake and alert, not in acute distress. Speech impacted due to tracheostomy. SKIN: Warm and dry. HEAD: Normocephalic. EYES: No scleral icterus. No injection or drainage. NECK: Supple, trachea midline. Trach present. CARDIOVASCULAR: Regular rate and rhythm without murmurs, gallops, or rubs. RESPIRATORY: Breath sounds equal bilaterally. No accessory muscle use. GASTROINTESTINAL: Abdomen soft, large, non-tender, nondistended. Bowel sounds present all quadrants. MUSCULOSKELETAL: No cyanosis, or edema. PSYCHIATRIC: Pt alert and oriented, without over signs of depression or anxiety. Procedures 04/30/16 - tracheostomy by Dr. Reyes 05/03/16 - EGD with PEG placement by Dr. Faith 06/09/16 - PEG removal 06/21/16- repeat tracheostomy by Dr. Cuellar Medications and IVs Current Medications Medications (Trade) Dose Ordered Sig/Chapis Route Start Time Stop Time Status Last Admin (NS Flush) 2 ml UNSCH PRN IVF 03/24/16 11:30 05/23/16 05:55 (Lotrisone Cream) 1 applic Q12HR TOPICAL 03/26/16 09:00 07/17/16 09:00 (Lovenox Inj) 40 mg Q12H SQ 03/26/16 18:00 07/17/16 05:55 (Beneprotein Powder) 1 pack TID G-TUBE 03/27/16 09:00 07/17/16 11:50 (Colace Liq) 100 mg Q12HR PO 03/29/16 09:00 07/17/16 10:03 (Tylenol 650 Mg/ 20 ml Liq) 650 mg Q6H PRN PO 03/30/16 15:45 06/23/16 21:37 (Glycerin Adult Supp) 2 gm BID PRN RECTAL 04/01/16 09:00 04/25/16 10:22 (NS Flush) DAILY IVF 04/03/16 09:00 07/17/16 09:00 (NS Flush) UNSCH PRN IVF 04/02/16 09:30 04/22/16 07:42 (Tears Naturale Opth Soln) 1 drop Q4H EACH EYE 04/21/16 18:00 07/17/16 11:50 (Mycostatin Powder) 1 applic Q12HR TOPICAL 04/27/16 11:00 07/17/16 09:00 (Zofran Inj) 4 mg Q6H PRN IV 05/05/16 06:45 (Phazyme Chew) 125 mg DAILY PRN PO 05/11/16 15:00 05/12/16 15:00 (Silvadene 1% Cream (400 Gm)) 1 applic DAILY TOPICAL 05/16/16 11:00 07/17/16 10:05 (Pill Splitter) 1 ea UNSCH PRN OTHER 05/24/16 10:45 (Protonix) 40 mg DAILY PO 05/26/16 09:00 07/17/16 10:03 (D50w (Vial) Inj) 25 ml UNSCH PRN IV PUSH 05/31/16 22:00 (Levemir Inj) 5 units HS SQ 06/06/16 21:00 07/16/16 21:36 (Lioresal) 5 mg DAILY PO 06/22/16 09:00 07/17/16 10:03 (Lyrica) 75 mg Q12HR PO 06/22/16 09:00 07/17/16 10:03 (Roxicodone) 2.5 mg Q4H PRN PO 06/24/16 17:00 07/17/16 06:02 (Miralax) 17 gm BID PRN PO 07/07/16 11:00 Urinary Catheter: No Date of Removal: Jun 29, 2016 Vascular Central Line Catheter: No A/P Problem List: (1) Acute hypercapnic respiratory failure ICD Code: J96.02 Status: Acute (2) Staphylococcus aureus pneumonia ICD Code: J15.211 Status: Acute (3) Encephalopathy ICD Code: G93.40 Status: Acute (4) JACOB (obstructive sleep apnea) ICD Code: G47.33 Status: Acute (5) Diabetes mellitus type 2 in obese ICD Code: E11.9 Status: Acute (6) Morbid obesity with BMI of 50.0-59.9, adult ICD Code: E66.01 Status: Acute (7) Obesity hypoventilation syndrome ICD Code: E66.2 Status: Acute Assessment and Plan Mr. Leger is a pleasant 50 year old male with a history of sleep apnea, morbid obesity, DM 2 who was admitted to the hospital on 03/24/2016 due to lightheadedness and dizziness. Initial work up indicated hypercarbia as well as hypoxemia. His O2 sat was 78% in the ED. CTA was negative for PE. He was started on BiPAP. However, due to unsatisfactory response, patient was intubated after neuromuscular paralysis using succinylcholine. Tracheostomy was done on 04/30/2016. Patient remained in the ICU until 05/07/2016. Patient went into acute respiratory failure again on 05/27/2016 and subsequently he was transferred back to ICU. Trach was exchanged on 05/27/2016 and he remained on mechanical ventilation. He was weaned off mechanical ventilation after tolerating CPAP trials. He was placed on T piece trial and tolerated that well. He was subsequently transferred to hospitalist service on 06/05/2016. Acute respiratory failure mixed hypercarbic and hypoxemic Probable obstructive sleep apnea Obesity hypoventilation syndrome - Status post Tracheostomy. - On 35% FiO2 T-piece, O2 sat stable, trach collar, keep O2 sat > 92%. - Pulmonary following. - Continue DuoNeb treatments. Pneumonia with Staph Aureus, resolved. ID signed off. 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 - Continue Baclofen 5mg daily, Lyrica 75mg bid, with oxycodone 2.5mg PO q4h PRN per pain scale. Diabetes mellitus type 2 with neuropathy - HgbA1c 7.4 in . Goal glucose 140-180. - Continue Levemir 5 units QHS . - Blood glucose well controlled - Continue Accu-checks BID. - Continue Lyrica and Baclofen for neuropathy. Nutrition: status post PEG tube placed initially on 05/[address] Faith - 06/09/16: pt complains of irritation/drainage/discomfort at PEG insertion site, tolerating PO intake. - PEG removed 06/09/[address] Munson. Transaminitis: LFTs improved, abdominal pain resolved. - Liver US shows fatty liver. Small stones or tumefactive sludge adherent to one of the gallbladder arcos. Splenomegaly. - Avoid hepatotoxins. - Hepatitis panel negative. Wound on anterior neck 04/05 trach collar, stage III: Patient has a short and large neck. - Optifoam in place. - Apply bacitracin. - Wound cultures with normal sherine. - Wound care following, last saw patient 07/03. Morbid Obesity with BMI 51.8 on admission: Encouraged weight loss. As of BMI is 48.5 Left Shoulder Pain: with decreased ROM. - Xrays negative for fracture/dislocations. - Continue PT - Continue pain control with oxycodone 2.5mg po q4h prn Full code. DVT prophylaxis: Lovenox. Discharge Planning No significant change in management. Continue placement efforts. Nilton Riley Jr. July 17, 2016 12:47
--- NOTE | 2016-07-17 18:36 | HHI.PR ---
Subjective Remarks respiratory failure DOING WELL , NOW ON T TUBE Objective Vital Signs Date Time Temp Pulse Resp B/P Pulse Ox O2 Delivery O2 Flow Rate FiO2 07/17/16 17:38 96 T-piece 6.00 35 07/17/16 16:30 20 07/17/16 08:15 96 T-piece 7.00 35 07/17/16 08:00 98.2 74 20 109/61 96 07/17/16 08:00 T-Piece 6.00 40 07/17/16 05:05 98.1 80 18 113/64 98 07/17/16 05:05 T-Piece 6.00 40 07/17/16 00:45 98.2 83 18 124/57 95 07/17/16 00:45 T-Piece 6.00 40 07/16/16 21:25 94 T-piece 40 07/16/16 20:40 98.3 89 20 106/51 95 07/16/16 20:40 T-Piece 6.00 40 I/O 07/16/16 07/16/16 07/16/16 07/17/16 07/17/16 07/17/16 07:00 15:00 23:00 07:00 15:00 23:00 Intake Total 200 ml 480 ml Output Total 650 ml 700 ml 150 ml 450 ml Balance -450 ml -220 ml -150 ml -450 ml Intake Oral 200 ml 480 ml Output Urine Total 650 ml 700 ml 150 ml 450 ml # Bowel Movements 0 0 0 0 Procedures 04/30/16 - tracheostomy by Dr. Reyes 05/03/16 - EGD with PEG placement by Dr. Faith 06/09/16 - PEG removal 06/21/16- repeat tracheostomy by Dr. Cuellar Objective Remarks GENERAL: SKIN: Warm and dry.on vent support HEAD: Atraumatic. Normocephalic. EYES: Pupils equal and round. No scleral icterus. No injection or drainage. ENT: No nasal bleeding or discharge. Mucous membranes pink and moist. NECK: Trachea midline. No JVD. CARDIOVASCULAR: Regular rate and rhythm. RESPIRATORY: No accessory muscle use. Clear to auscultation. Breath sounds equal bilaterally. GASTROINTESTINAL: Abdomen soft, non-tender, nondistended. Hepatic and splenic margins not palpable. MUSCULOSKELETAL: Extremities without clubbing, cyanosis, or edema. No obvious deformities. NEUROLOGICAL: Awake and alert. No obvious cranial nerve deficits.right hemiplegia Assessment and Plan Assessment and Plan respiratory failure morbid obesity plan O2 NEEDED pulm toilet prognosis guarded Orlando Perry MD July 17, 2016 18:36
[2016-07-17] MEDS: INSULIN DETEMIR 100 UNITS/ML VIAL SQ SCH (20:24)
[2016-07-18] VITALS (8 sets, daily range): BP systolic 94–117; BP diastolic 54–70; PULSE 76–95; RESP 18–20; TEMP 97.9–98.2; O2SAT 35–99
[2016-07-18] MEDS: ARTIFICIAL TEARS OPTH SOLN 15 ML BTL EACH EYE SCH ×6 (02:10→22:00)
[2016-07-18] MEDS: ENOXAPARIN SODIUM 40 MG/0.4 ML SYRINGE SQ SCH ×2 (04:46→17:36)
--- NOTE | 2016-07-18 08:38 | HHI.PR ---
Subjective Remarks respiratory failure DOING WELL , NOW ON T TUBE Objective Vital Signs Date Time Temp Pulse Resp B/P Pulse Ox O2 Delivery O2 Flow Rate FiO2 07/18/16 04:00 98.2 76 18 117/56 99 07/18/16 00:49 T-Piece 6.00 40 07/18/16 00:00 98.0 88 18 112/70 95 07/17/16 20:00 98.5 86 18 111/64 96 07/17/16 17:38 96 T-piece 6.00 35 07/17/16 16:30 20 07/17/16 16:00 98.3 92 20 124/71 98 07/17/16 12:00 97.4 88 20 107/65 98 I/O 07/17/16 07/17/16 07/17/16 07/18/16 07/18/16 07/18/16 07:00 15:00 23:00 07:00 15:00 23:00 Intake Total 600 ml 722 ml 240 ml Output Total 450 ml 125 ml 500 ml 700 ml Balance -450 ml 475 ml 222 ml -460 ml Intake Oral 600 ml 720 ml 240 ml IV Total 2 ml Output Urine Total 450 ml 125 ml 500 ml 700 ml # Bowel Movements 0 1 1 0 Procedures 04/30/16 - tracheostomy by Dr. Reyes 05/03/16 - EGD with PEG placement by Dr. Faith 06/09/16 - PEG removal 06/21/16- repeat tracheostomy by Dr. Cuellar Objective Remarks GENERAL: SKIN: Warm and dry.on vent support HEAD: Atraumatic. Normocephalic. EYES: Pupils equal and round. No scleral icterus. No injection or drainage. ENT: No nasal bleeding or discharge. Mucous membranes pink and moist. NECK: Trachea midline. No JVD. CARDIOVASCULAR: Regular rate and rhythm. RESPIRATORY: No accessory muscle use. Clear to auscultation. Breath sounds equal bilaterally. GASTROINTESTINAL: Abdomen soft, non-tender, nondistended. Hepatic and splenic margins not palpable. MUSCULOSKELETAL: Extremities without clubbing, cyanosis, or edema. No obvious deformities. NEUROLOGICAL: Awake and alert. No obvious cranial nerve deficits.right hemiplegia Assessment and Plan Assessment and Plan respiratory failure morbid obesity plan O2 NEEDED pulm toilet prognosis guarded Orlando Perry MD July 18, 2016 08:38
[2016-07-18] MEDS: NYSTATIN 100,000 U/GM PWD 15 GM BTL TOPICAL SCH ×2 (09:00→21:00)
[2016-07-18] MEDS: DOCUSATE SODIUM 100 MG/10 ML UDC PO SCH ×2 (09:00→21:00)
[2016-07-18] MEDS: SODIUM CHLORIDE 0.9% FLUSH 5 ML FLUSH IVF SCH (09:00)
[2016-07-18] MEDS: BENEPROTEIN POWDER 1 PACK G-TUBE SCH (09:00)
[2016-07-18] MEDS: BETAMETHASONE/CLOTRIMAZOLE CREAM 15 GM TOPICAL SCH ×2 (09:00→21:00)
[2016-07-18] MEDS: PREGABALIN 75 MG CAP PO SCH ×2 (09:06→22:40)
[2016-07-18] MEDS: PANTOPRAZOLE SOD 40 MG DELAYED RELEASE TAB PO SCH (09:06)
[2016-07-18] MEDS: BACLOFEN 10 MG TAB PO SCH (09:06)
--- NOTE | 2016-07-18 12:18 | HHI.PR ---
Subjective Remarks Follow up for chronic respiratory failure. Pt has T-piece in place and verbalization is limited. He wrote :I feel great". No new issues noted or reported by pt. Discussed pt with his nurse who reported no issues. Objective Vitals Vital Signs Date Time Temp Pulse Resp B/P Pulse Ox O2 Delivery O2 Flow Rate FiO2 07/18/16 09:30 35 T-piece 96 07/18/16 09:08 T-Piece 6.00 40 07/18/16 08:00 98.2 95 20 94/59 97 07/18/16 04:00 98.2 76 18 117/56 99 07/18/16 00:49 T-Piece 6.00 40 07/18/16 00:00 98.0 88 18 112/70 95 07/17/16 20:00 98.5 86 18 111/64 96 07/17/16 17:38 96 T-piece 6.00 35 07/17/16 16:30 20 07/17/16 16:00 98.3 92 20 124/71 98 07/17/16 12:00 97.4 88 20 107/65 98 I/O 07/17/16 07/17/16 07/17/16 07/18/16 07/18/16 07/18/16 07:00 15:00 23:00 07:00 15:00 23:00 Intake Total 600 ml 722 ml 240 ml Output Total 450 ml 125 ml 500 ml 700 ml Balance -450 ml 475 ml 222 ml -460 ml Intake Oral 600 ml 720 ml 240 ml IV Total 2 ml Output Urine Total 450 ml 125 ml 500 ml 700 ml # Bowel Movements 0 1 1 0 Imaging Last Impressions Chest X-Ray 06/30/16 0600 Signed Impressions: Service Date/Time: Thursday, June 30, 2016 06:07 - CONCLUSION: No significant change. Mild bilateral perihilar and basilar consolidation again noted. Ubaldo Ortiz MD Shoulder X-Ray 06/28/16 0000 Signed Impressions: Service Date/Time: June 15:12 - CONCLUSION: 1. Limited but negative examination of the shoulder. Kyaw Rojo MD Abdomen X-Ray 06/19/16 0000 Signed Impressions: Service Date/Time: Sunday, June 19, 2016 10:43 - CONCLUSION: Gastric tube tip does not cross the diaphragm and the side port is approximately 8 cm above the diaphragm. Chano Goodwin MD Lower Extremity Ultrasound 06/04/16 0000 Signed Impressions: Service Date/Time: Saturday, June 04, 2016 14:54 - CONCLUSION: 1. No DVT identified. Dc Barton MD Liver Ultrasound 05/09/16 0000 Signed Impressions: Service Date/Time: Monday, May 09, 2016 22:28 - CONCLUSION: 1. Enlarged, fatty liver. 2. Small stones or tumefactive sludge adherent to one of the gallbladder arcos. 3. Splenomegaly. 4. Pancreas is obscured by overlying bowel gas and patient's body habitus. Arthur Kennedy MD Chest CT 03/28/16 0836 Signed Impressions: Service Date/Time: Monday, March 28, 2016 09:57 - CONCLUSION: Development areas of air bronchograms and consolidation more prominent in the right and left posterior basilar segments of the lower lobes. ET tube above the chanelle. Bernard Hartman MD CT Angiography 03/24/16 1121 Signed Impressions: Service Date/Time: Thursday, March 24, 2016 12:47 - CONCLUSION: 1. There is respiratory motion artifact but no PE is identified through most of the segmental level pulmonary arteries. 2. Mildly enlarged main pulmonary artery may indicate pulmonary arterial hypertension. 3. 11 mm left lower lobe noncalcified pulmonary nodule. Suggest correlation with any prior imaging studies that could confirm longer-term stability. If none are available consider short-term followup noncontrast chest CT in approximately 3 months. Ubaldo Rodas MD Objective Remarks GENERAL: Pt laying abed, awake and alert, not in acute distress. Speech impacted due to tracheostomy. SKIN: Warm and dry. Skin wound at site of T- Piece. Red in color. Callouses noted on both knees. 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 HEAD: Normocephalic. EYES: No scleral icterus. No injection or drainage. NECK: Supple, trachea midline. Trach present. CARDIOVASCULAR: Regular rate and rhythm without murmurs, gallops, or rubs. RESPIRATORY: Breath sounds equal bilaterally. No accessory muscle use. GASTROINTESTINAL: Abdomen soft, large, non-tender, nondistended. Bowel sounds present all quadrants. MUSCULOSKELETAL: No cyanosis, or edema. Pt observed to be moving all four limbs as if marching while laying a bed. Pt nodded "yes" when asked about marching. PSYCHIATRIC: Pt alert and oriented, without over signs of depression or anxiety. Pleasant and cooperative. Procedures 04/30/16 - tracheostomy by Dr. Reyes 05/03/16 - EGD with PEG placement by Dr. Faith 06/09/16 - PEG removal 06/21/16- repeat tracheostomy by Dr. Cuellar Medications and IVs Current Medications Medications (Trade) Dose Ordered Sig/Chapis Route Start Time Stop Time Status Last Admin (NS Flush) 2 ml UNSCH PRN IVF 03/24/16 11:30 05/23/16 05:55 (Lotrisone Cream) 1 applic Q12HR TOPICAL 03/26/16 09:00 07/18/16 09:00 (Lovenox Inj) 40 mg Q12H SQ 03/26/16 18:00 07/18/16 04:46 (Beneprotein Powder) 1 pack TID G-TUBE 03/27/16 09:00 07/18/16 09:00 (Colace Liq) 100 mg Q12HR PO 03/29/16 09:00 07/17/16 10:03 (Tylenol 650 Mg/ 20 ml Liq) 650 mg Q6H PRN PO 03/30/16 15:45 06/23/16 21:37 (Glycerin Adult Supp) 2 gm BID PRN RECTAL 04/01/16 09:00 04/25/16 10:22 (NS Flush) DAILY IVF 04/03/16 09:00 07/18/16 09:00 (NS Flush) UNSCH PRN IVF 04/02/16 09:30 04/22/16 07:42 (Tears Naturale Opth Soln) 1 drop Q4H EACH EYE 04/21/16 18:00 07/17/16 20:16 (Mycostatin Powder) 1 applic Q12HR TOPICAL 04/27/16 11:00 07/18/16 09:00 (Zofran Inj) 4 mg Q6H PRN IV 05/05/16 06:45 (Phazyme Chew) 125 mg DAILY PRN PO 05/11/16 15:00 05/12/16 15:00 (Pill Splitter) 1 ea UNSCH PRN OTHER 05/24/16 10:45 (Protonix) 40 mg DAILY PO 05/26/16 09:00 07/18/16 09:06 (D50w (Vial) Inj) 25 ml UNSCH PRN IV PUSH 05/31/16 22:00 (Levemir Inj) 5 units HS SQ 06/06/16 21:00 07/17/16 20:24 (Lioresal) 5 mg DAILY PO 06/22/16 09:00 07/18/16 09:06 (Lyrica) 75 mg Q12HR PO 06/22/16 09:00 07/18/16 09:06 (Roxicodone) 2.5 mg Q4H PRN PO 06/24/16 17:00 07/18/16 09:07 (Miralax) 17 gm BID PRN PO 07/07/16 11:00 (Silver Nitrate Applicators) 1 appl Q7D PRN TOPICAL 07/17/16 14:45 Urinary Catheter: No Date of Removal: Jun 29, 2016 Vascular Central Line Catheter: No A/P Problem List: (1) Acute hypercapnic respiratory failure ICD Code: J96.02 Status: Acute (2) Staphylococcus aureus pneumonia ICD Code: J15.211 Status: Acute (3) Encephalopathy ICD Code: G93.40 Status: Acute (4) JACOB (obstructive sleep apnea) ICD Code: G47.33 Status: Acute (5) Diabetes mellitus type 2 in obese ICD Code: E11.9 Status: Acute (6) Morbid obesity with BMI of 50.0-59.9, adult ICD Code: E66.01 Status: Acute (7) Obesity hypoventilation syndrome ICD Code: E66.2 Status: Acute Assessment and Plan Mr. Leger is a pleasant 50 year old male with a history of sleep apnea, morbid obesity, DM 2 who was admitted to the hospital on 03/24/2016 due to lightheadedness and dizziness. Initial work up indicated hypercarbia as well as hypoxemia. His O2 sat was 78% in the ED. CTA was negative for PE. He was started on BiPAP. However, due to unsatisfactory response, patient was intubated after neuromuscular paralysis using succinylcholine. Tracheostomy was done on 04/30/2016. Patient remained in the ICU until 05/07/2016. Patient went into acute respiratory failure again on 05/27/2016 and subsequently he was transferred back to ICU. Trach was exchanged on 05/27/2016 and he remained on mechanical ventilation. He was weaned off mechanical ventilation after tolerating CPAP trials. He was placed on T piece trial and tolerated that well. He was subsequently transferred to hospitalist service on 06/05/2016. Acute respiratory failure mixed hypercarbic and hypoxemic Probable obstructive sleep apnea Obesity hypoventilation syndrome - Status post Tracheostomy. - On 35% FiO2 T-piece, O2 sat stable, trach collar, keep O2 sat > 92%. - Pulmonary following. - Continue DuoNeb treatments. Pneumonia with Staph Aureus, resolved. ID signed off. 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 - Continue Baclofen 5mg daily, Lyrica 75mg bid, with oxycodone 2.5mg PO q4h PRN per pain scale. Diabetes mellitus type 2 with neuropathy - HgbA1c 7.4 in . Goal glucose 140-180. - Continue Levemir 5 units QHS . - Blood glucose well controlled - Continue Accu-checks BID. - Continue Lyrica and Baclofen for neuropathy. Nutrition: status post PEG tube placed initially on 05/03 by LIBBY Faith - 06/09/16: pt complains of irritation/drainage/discomfort at PEG insertion site, tolerating PO intake. - PEG removed 06/09/16 by LIBBY Munson. - Beneprotein discontinued as it had been ordered while/when pt had a PEG tube. Transaminitis: LFTs improved, abdominal pain resolved. - Liver US shows fatty liver. Small stones or tumefactive sludge adherent to one of the gallbladder arcos. Splenomegaly. - Avoid hepatotoxins. - Hepatitis panel negative. 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 - Optifoam in place. - Apply bacitracin. - Wound cultures with normal sherine. - Wound care following, last saw patient 07/03. -Wound care contacted hospitalist team on 07/17/16 requesting d/c of Silvadene and initiation of Silver nitrate to address wound. Orders placed. Morbid Obesity with BMI 51.8 on admission: Encouraged weight loss. As of BMI is 48.4 Left Shoulder Pain: with decreased ROM. - Xrays negative for fracture/dislocations. - Continue PT - Continue pain control with oxycodone 2.5mg po q4h prn Full code. DVT prophylaxis: Lovenox. Discharge Planning No significant change in management. Continue placement efforts. Nilton Riley Jr. July 18, 2016 11:34
[2016-07-18] MEDS ORDERED: GLUCAGON 1 MG/ML VIAL SQ PRN (16:00)
[2016-07-18] MEDS: INSULIN DETEMIR 100 UNITS/ML VIAL SQ SCH (23:03)
[2016-07-19] VITALS (8 sets, daily range): BP systolic 98–111; BP diastolic 53–66; PULSE 78–85; RESP 17–20; TEMP 97.9–98.5; O2SAT 93–97
[2016-07-19] MEDS: ARTIFICIAL TEARS OPTH SOLN 15 ML BTL EACH EYE SCH ×6 (01:20→21:51)
[2016-07-19] MEDS: ENOXAPARIN SODIUM 40 MG/0.4 ML SYRINGE SQ SCH ×2 (05:58→17:38)
[2016-07-19] MEDS: DOCUSATE SODIUM 100 MG/10 ML UDC PO SCH ×2 (09:00→21:49)
[2016-07-19] MEDS: BETAMETHASONE/CLOTRIMAZOLE CREAM 15 GM TOPICAL SCH ×2 (09:00→21:50)
[2016-07-19] MEDS: NYSTATIN 100,000 U/GM PWD 15 GM BTL TOPICAL SCH ×2 (09:00→21:00)
[2016-07-19] MEDS: SODIUM CHLORIDE 0.9% FLUSH 5 ML FLUSH IVF SCH (09:00)
[2016-07-19] MEDS: PANTOPRAZOLE SOD 40 MG DELAYED RELEASE TAB PO SCH (09:10)
[2016-07-19] MEDS: PREGABALIN 75 MG CAP PO SCH ×2 (09:10→21:49)
[2016-07-19] MEDS: BACLOFEN 10 MG TAB PO SCH (09:10)
[2016-07-19 10:05] LABS: BLOOD GAS BASE EXCESS 7.9 mmol/L (-2-2); BLOOD GAS CARBOXYHEMOGLOBIN 1.4 % (0-4); BLOOD GAS HCO3 33 mmol/L (22-26); BLOOD GAS METHEMOGLOBIN 0.8 % (0-2); BLOOD GAS O2 HGB SATURATION 92 % (90-100); BLOOD GAS OXYGEN CONTENT 14.2 Vol % (12.0-20.0); BLOOD GAS PCO2 60 mmHg (38-42); BLOOD GAS PO2 73 mmHg (61-120); BLOOD GAS TOTAL HGB 10.9 G/DL (12.0-16.0); TEMP CORR TO 98.6
[2016-07-19 10:06] LABS: CRITICAL VALUE YES; FIO2 28 %; LITER FLOW 6 L/M
[2016-07-19 10:07] LABS: DRAW SITE RT RADIAL; NUMBER OF ARTERIAL PUNCTURES 1; STAT NO; ULNAR PULSE PRESENT
--- NOTE | 2016-07-19 13:29 | HHI.PR ---
Subjective Remarks Follow up for chronic respiratory failure. Pt has T-piece in place and verbalization is limited. Pt mouthed "I feel great" and added "better than yesterday." Pt denied fever, cough, shortness of breath, nausea, vomiting, and diarrhea. No new issues noted or reported by pt. Discussed pt with his nurse who requested changing pt's finger sticks from every 4 hours to every 6 hours. Objective Vitals Vital Signs Date Time Temp Pulse Resp B/P Pulse Ox O2 Delivery O2 Flow Rate FiO2 07/19/16 12:00 98.0 78 18 108/59 97 07/19/16 09:15 T-Piece 6.00 40 07/19/16 08:39 94 T-piece 35 07/19/16 08:00 97.9 85 17 111/53 95 07/19/16 04:00 98.4 82 18 98/56 94 07/19/16 00:00 98.5 80 18 108/66 93 07/18/16 20:30 T-Piece 6.00 40 07/18/16 20:00 97.9 84 18 96/54 94 07/18/16 18:08 96 T-piece 6.00 35 07/18/16 16:00 98.1 80 20 106/68 96 I/O 07/18/16 07/18/16 07/18/16 07/19/16 07/19/16 07/19/16 07:00 15:00 23:00 07:00 15:00 23:00 Intake Total 240 ml 600 ml Output Total 700 ml 200 ml 500 ml Balance -460 ml 400 ml -500 ml Intake Oral 240 ml 600 ml Output Urine Total 700 ml 200 ml 500 ml # Bowel Movements 0 1 0 Imaging No imaging ordered or resulted within the past 24 hours. Objective Remarks GENERAL: Pt sitting upright in chair at bedside, awake and alert, not in acute distress. Speech impacted due to tracheostomy. SKIN: Warm and dry. Skin wound at site of T- Piece. Red in color. HEAD: Normocephalic. EYES: No scleral icterus. No injection or drainage. NECK: Supple, trachea midline. Trach present. CARDIOVASCULAR: Regular rate and rhythm without murmurs, gallops, or rubs. RESPIRATORY: Breath sounds equal bilaterally. No accessory muscle use. GASTROINTESTINAL: Abdomen soft, large, non-tender, nondistended. Bowel sounds present all quadrants. MUSCULOSKELETAL: No cyanosis, or edema. PSYCHIATRIC: Pt alert and oriented, without over signs of depression or anxiety. Pleasant and cooperative. Procedures 04/30/16 - tracheostomy by Dr. Reyes 05/03/16 - EGD with PEG placement by Dr. Faith 06/09/16 - PEG removal 06/21/16- repeat tracheostomy by Dr. Cuellar Medications and IVs Current Medications Medications (Trade) Dose Ordered Sig/Chapis Route Start Time Stop Time Status Last Admin (NS Flush) 2 ml UNSCH PRN IVF 03/24/16 11:30 05/23/16 05:55 (Lotrisone Cream) 1 applic Q12HR TOPICAL 03/26/16 09:00 07/19/16 09:00 (Lovenox Inj) 40 mg Q12H SQ 03/26/16 18:00 07/19/16 05:58 (Colace Liq) 100 mg Q12HR PO 03/29/16 09:00 07/17/16 10:03 (Tylenol 650 Mg/ 20 ml Liq) 650 mg Q6H PRN PO 03/30/16 15:45 06/23/16 21:37 (Glycerin Adult Supp) 2 gm BID PRN RECTAL 04/01/16 09:00 04/25/16 10:22 (NS Flush) DAILY IVF 04/03/16 09:00 07/18/16 09:00 (NS Flush) UNSCH PRN IVF 04/02/16 09:30 04/22/16 07:42 (Tears Naturale Opth Soln) 1 drop Q4H EACH EYE 04/21/16 18:00 07/17/16 20:16 (Mycostatin Powder) 1 applic Q12HR TOPICAL 04/27/16 11:00 07/19/16 09:00 (Zofran Inj) 4 mg Q6H PRN IV 05/05/16 06:45 (Phazyme Chew) 125 mg DAILY PRN PO 05/11/16 15:00 05/12/16 15:00 (Pill Splitter) 1 ea UNSCH PRN OTHER 05/24/16 10:45 (Protonix) 40 mg DAILY PO 05/26/16 09:00 07/19/16 09:10 (D50w (Vial) Inj) 25 ml UNSCH PRN IV PUSH 05/31/16 22:00 (Levemir Inj) 5 units HS SQ 06/06/16 21:00 07/18/16 23:03 (Lioresal) 5 mg DAILY PO 06/22/16 09:00 07/19/16 09:10 (Lyrica) 75 mg Q12HR PO 06/22/16 09:00 07/19/16 09:10 (Roxicodone) 2.5 mg Q4H PRN PO 06/24/16 17:00 07/19/16 13:04 (Miralax) 17 gm BID PRN PO 07/07/16 11:00 (Silver Nitrate Applicators) 1 appl Q7D PRN TOPICAL 07/17/16 14:45 (Glucagon Inj) 1 mg ONCE PRN SQ 07/18/16 16:00 07/23/16 23:59 Urinary Catheter: No Date of Removal: Jun 29, 2016 Vascular Central Line Catheter: No A/P Problem List: (1) Acute hypercapnic respiratory failure ICD Code: J96.02 Status: Acute (2) Staphylococcus aureus pneumonia ICD Code: J15.211 Status: Acute (3) Encephalopathy ICD Code: G93.40 Status: Acute (4) JACOB (obstructive sleep apnea) ICD Code: G47.33 Status: Acute (5) Diabetes mellitus type 2 in obese ICD Code: E11.9 Status: Acute (6) Morbid obesity with BMI of 50.0-59.9, adult ICD Code: E66.01 Status: Acute (7) Obesity hypoventilation syndrome ICD Code: E66.2 Status: Acute Assessment and Plan Mr. Leger is a pleasant 50 year old male with a history of sleep apnea, morbid obesity, DM 2 who was admitted to the hospital on 03/24/2016 due to lightheadedness and dizziness. Initial work up indicated hypercarbia as well as hypoxemia. His O2 sat was 78% in the ED. CTA was negative for PE. He was started on BiPAP. However, due to unsatisfactory response, patient was intubated after neuromuscular paralysis using succinylcholine. Tracheostomy was done on 04/30/2016. Patient remained in the ICU until 05/07/2016. Patient went into acute respiratory failure again on 05/27/2016 and subsequently he was transferred back to ICU. Trach was exchanged on 05/27/2016 and he remained on mechanical ventilation. He was weaned off mechanical ventilation after tolerating CPAP trials. He was placed on T piece trial and tolerated that well. He was subsequently transferred to hospitalist service on 06/05/2016. Acute respiratory failure mixed hypercarbic and hypoxemic Probable obstructive sleep apnea Obesity hypoventilation syndrome - Status post Tracheostomy. - On 35% FiO2 T-piece, O2 sat stable, trach collar, keep O2 sat > 92%. - Pulmonary following. - Continue DuoNeb treatments. Pneumonia with Staph Aureus, resolved. ID signed off. 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 - Continue Baclofen 5mg daily, Lyrica 75mg bid, with oxycodone 2.5mg PO q4h PRN per pain scale. Diabetes mellitus type 2 with neuropathy - HgbA1c 7.4 in . Goal glucose 140-180. - Continue Levemir 5 units QHS . - Blood glucose well controlled - Continue Accu-checks BID. - Continue Lyrica and Baclofen for neuropathy. -Finger sticks now to be done every 6 hours (07/19/16). Nutrition: status post PEG tube placed initially on 05/[address] Faith - 06/09/16: pt complains of irritation/drainage/discomfort at PEG insertion site, tolerating PO intake. - PEG removed 06/09/[address] Munson. - Beneprotein discontinued as it had been ordered while/when pt had a PEG tube. Transaminitis: LFTs improved, abdominal pain resolved. - Liver US shows fatty liver. Small stones or tumefactive sludge adherent to one of the gallbladder arcos. Splenomegaly. - Avoid hepatotoxins. - Hepatitis panel negative. 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 - Optifoam in place. - Apply bacitracin. - Wound cultures with normal sherine. - Wound care following, last saw patient 07/03. -Wound care contacted hospitalist team on 07/17/16 requesting d/c of Silvadene and initiation of Silver nitrate to address wound. Orders placed. Morbid Obesity with BMI 51.8 on admission: Encouraged weight loss. As of BMI is 48.4 Left Shoulder Pain: with decreased ROM. - Xrays negative for fracture/dislocations. - Continue PT - Continue pain control with oxycodone 2.5mg po q4h prn Full code. DVT prophylaxis: Lovenox. Discharge Planning No significant change in management. Continue placement efforts. Nilton Riley Jr. July 19, 2016 13:29
[2016-07-19] MEDS: INSULIN DETEMIR 100 UNITS/ML VIAL SQ SCH (21:39)
[2016-07-20] VITALS (7 sets, daily range): BP systolic 99–120; BP diastolic 52–60; PULSE 80–92; RESP 18–20; TEMP 98–98.6; O2SAT 93–98
[2016-07-20] MEDS: ARTIFICIAL TEARS OPTH SOLN 15 ML BTL EACH EYE SCH ×6 (02:00→21:25)
[2016-07-20] MEDS: ENOXAPARIN SODIUM 40 MG/0.4 ML SYRINGE SQ SCH ×2 (05:24→17:47)
[2016-07-20 08:06] LABS: AUTOMATED NEUTROPHIL # 7.2 TH/MM3 (1.8-7.7); BASOPHIL # 0.1 TH/MM3 (0-0.2); EOSINOPHIL # 0.3 TH/MM3 (0-0.4); EOSINOPHIL % 3.1 % (0.0-4.0); HEMATOCRIT 35.2 % (39.0-51.0); HEMO FLAGS DIFF FINAL; LYMPH % 19.4 % (9.0-44.0); MEAN CELL VOLUME 85.5 FL (80.0-100.0); MEAN CORPUSCULAR HEMOGLOBIN 27.5 PG (27.0-34.0); MEAN CORPUSCULAR HGB CONC 32.1 % (32.0-36.0); MONO % 8.2 % (0.0-8.0); NEUT % 68.3 % (16.0-70.0); PLATELET COUNT 407 TH/MM3 (150-450); RED BLOOD COUNT 4.11 MIL/MM3 (4.50-5.90); RED CELL DISTRIBUTION WIDTH 15.4 % (11.6-17.2); WHITE BLOOD COUNT 10.6 TH/MM3 (4.0-11.0)
[2016-07-20 08:30] LABS: ANION GAP 8 MEQ/L (5-15); BICARBONATE 33.5 MEQ/L (21.0-32.0); BLOOD UREA NITROGEN 10 MG/DL (7-18); CHLORIDE 99 MEQ/L (98-107); GLOMERULAR FILTRATION RATE 161 ML/MIN (>89); POTASSIUM 3.8 MEQ/L (3.5-5.1); SODIUM (NA) 140 MEQ/L (136-145)
--- NOTE | 2016-07-20 08:43 | HHI.PR ---
Subjective Remarks respiratory failure DOING WELL , NOW ON T TUBE Objective Vital Signs Date Time Temp Pulse Resp B/P Pulse Ox O2 Delivery O2 Flow Rate FiO2 07/20/16 08:30 94 T-piece 35 07/20/16 04:00 98.5 92 20 102/59 93 07/20/16 04:00 T-Piece 35 07/20/16 00:00 T-Piece 35 07/20/16 00:00 98.6 80 20 99/52 96 07/19/16 22:40 96 T-piece 5.00 35 07/19/16 20:00 97.9 79 20 102/55 94 07/19/16 20:00 T-Piece 35 07/19/16 16:00 98.2 81 18 103/58 97 07/19/16 12:00 98.0 78 18 108/59 97 07/19/16 09:15 T-Piece 6.00 40 I/O 07/19/16 07/19/16 07/19/16 07/20/16 07/20/16 07/20/16 07:00 15:00 23:00 07:00 15:00 23:00 Intake Total 720 ml 600 ml 480 ml Output Total 600 ml 300 ml 775 ml Balance 120 ml 300 ml -295 ml Intake Oral 720 ml 600 ml 480 ml Output Urine Total 600 ml 300 ml 775 ml # Bowel Movements 0 0 Result Diagram: 07/20/1672707/20/16727 Procedures 04/30/16 - tracheostomy by Dr. Reyes 05/03/16 - EGD with PEG placement by Dr. Faith 06/09/16 - PEG removal 06/21/16- repeat tracheostomy by Dr. Cuellar Objective Remarks GENERAL: SKIN: Warm and dry.on vent support HEAD: Atraumatic. Normocephalic. EYES: Pupils equal and round. No scleral icterus. No injection or drainage. ENT: No nasal bleeding or discharge. Mucous membranes pink and moist. NECK: Trachea midline. No JVD. CARDIOVASCULAR: Regular rate and rhythm. RESPIRATORY: No accessory muscle use. Clear to auscultation. Breath sounds equal bilaterally. GASTROINTESTINAL: Abdomen soft, non-tender, nondistended. Hepatic and splenic margins not palpable. MUSCULOSKELETAL: Extremities without clubbing, cyanosis, or edema. No obvious deformities. NEUROLOGICAL: Awake and alert. No obvious cranial nerve deficits.right hemiplegia Medications and IVs Last Impressions Chest X-Ray 06/30/16 0600 Signed Impressions: Service Date/Time: Thursday, June 30, 2016 06:07 - CONCLUSION: No significant change. Mild bilateral perihilar and basilar consolidation again noted. Ubaldo Ortiz MD Shoulder X-Ray 06/28/16 0000 Signed Impressions: Service Date/Time: June 15:12 - CONCLUSION: 1. Limited but negative examination of the shoulder. Kyaw Rojo MD Abdomen X-Ray 06/19/16 0000 Signed Impressions: Service Date/Time: Sunday, June 19, 2016 10:43 - CONCLUSION: Gastric tube tip does not cross the diaphragm and the side port is approximately 8 cm above the diaphragm. Chano Goodwin MD Lower Extremity Ultrasound 06/04/16 0000 Signed Impressions: Service Date/Time: Saturday, June 04, 2016 14:54 - CONCLUSION: 1. No DVT identified. Dc Barton MD Liver Ultrasound 05/09/16 0000 Signed Impressions: Service Date/Time: Monday, May 09, 2016 22:28 - CONCLUSION: 1. Enlarged, fatty liver. 2. Small stones or tumefactive sludge adherent to one of the gallbladder arcos. 3. Splenomegaly. 4. Pancreas is obscured by overlying bowel gas and patient's body habitus. Arthur Kennedy MD Chest CT 03/28/16 0836 Signed Impressions: Service Date/Time: Monday, March 28, 2016 09:57 - CONCLUSION: Development areas of air bronchograms and consolidation more prominent in the right and left posterior basilar segments of the lower lobes. ET tube above the chanelle. Bernard Hartman MD CT Angiography 03/24/16 1121 Signed Impressions: Service Date/Time: Thursday, March 24, 2016 12:47 - CONCLUSION: 1. There is respiratory motion artifact but no PE is identified through most of the segmental level pulmonary arteries. 2. Mildly enlarged main pulmonary artery may indicate pulmonary arterial hypertension. 3. 11 mm left lower lobe noncalcified pulmonary nodule. Suggest correlation with any prior imaging studies that could confirm longer-term stability. If none are available consider short-term followup noncontrast chest CT in approximately 3 months. Ubaldo Rodas MD Assessment and Plan Assessment and Plan respiratory failure morbid obesity plan O2 NEEDED pulm toilet prognosis guarded Discharge Planning Last Impressions Chest X-Ray 06/30/16 0600 Signed Impressions: Service Date/Time: Thursday, June 30, 2016 06:07 - CONCLUSION: No significant change. Mild bilateral perihilar and basilar consolidation again noted. Ubaldo Ortiz MD Shoulder X-Ray 06/28/16 0000 Signed Impressions: Service Date/Time: June 15:12 - CONCLUSION: 1. Limited but negative examination of the shoulder. Kyaw Rojo MD Abdomen X-Ray 06/19/16 0000 Signed Impressions: Service Date/Time: Sunday, June 19, 2016 10:43 - CONCLUSION: Gastric tube tip does not cross the diaphragm and the side port is approximately 8 cm above the diaphragm. Chano Goodwin MD Lower Extremity Ultrasound 06/04/16 0000 Signed Impressions: Service Date/Time: Saturday, June 04, 2016 14:54 - CONCLUSION: 1. No DVT identified. Dc Barton MD Liver Ultrasound 05/09/16 0000 Signed Impressions: Service Date/Time: Monday, May 09, 2016 22:28 - CONCLUSION: 1. Enlarged, fatty liver. 2. Small stones or tumefactive sludge adherent to one of the gallbladder arcos. 3. Splenomegaly. 4. Pancreas is obscured by overlying bowel gas and patient's body habitus. Arthur Kennedy MD Chest CT 03/28/16 0836 Signed Impressions: Service Date/Time: Monday, March 28, 2016 09:57 - CONCLUSION: Development areas of air bronchograms and consolidation more prominent in the right and left posterior basilar segments of the lower lobes. ET tube above the chanelle. Bernard Hartman MD CT Angiography 03/24/16 1121 Signed Impressions: Service Date/Time: Thursday, March 24, 2016 12:47 - CONCLUSION: 1. There is respiratory motion artifact but no PE is identified through most of the segmental level pulmonary arteries. 2. Mildly enlarged main pulmonary artery may indicate pulmonary arterial hypertension. 3. 11 mm left lower lobe noncalcified pulmonary nodule. Suggest correlation with any prior imaging studies that could confirm longer-term stability. If none are available consider short-term followup noncontrast chest CT in approximately 3 months. MD Orlando Figueroa,Orlando Bhandari MD July 20, 2016 08:42
[2016-07-20] MEDS: SODIUM CHLORIDE 0.9% FLUSH 5 ML FLUSH IVF SCH (09:00)
[2016-07-20] MEDS: DOCUSATE SODIUM 100 MG/10 ML UDC PO SCH ×2 (09:00→21:00)
[2016-07-20] MEDS: BACLOFEN 10 MG TAB PO SCH (09:17)
[2016-07-20] MEDS: NYSTATIN 100,000 U/GM PWD 15 GM BTL TOPICAL SCH ×2 (09:17→21:00)
[2016-07-20] MEDS: PREGABALIN 75 MG CAP PO SCH ×2 (09:17→21:24)
[2016-07-20] MEDS: PANTOPRAZOLE SOD 40 MG DELAYED RELEASE TAB PO SCH (09:17)
[2016-07-20] MEDS: BETAMETHASONE/CLOTRIMAZOLE CREAM 15 GM TOPICAL SCH ×2 (09:18→21:00)
--- NOTE | 2016-07-20 12:14 | HHI.PR ---
Subjective Remarks Follow up for chronic respiratory failure. Pt has T-piece in place and verbalization is limited. Pt mouthed "I feel great". However, he expressed having low back pain (throbbing , rated 4/10) and requested pain medication from nurse. pt noted he is able to make 4 round trips from his bed to the door, yet it tires him. Pt denied fever, cough, shortness of breath, nausea, vomiting, and diarrhea. Nursing reported Dr. Perry (pulmonary medicine) has ordered bipap for pt at night to address JACOB. No new issues noted or reported by pt. Objective Vitals Vital Signs Date Time Temp Pulse Resp B/P Pulse Ox O2 Delivery O2 Flow Rate FiO2 07/20/16 08:30 94 T-piece 35 07/20/16 08:00 98.1 85 18 110/60 95 07/20/16 07:00 95 T-Piece 35 07/20/16 04:00 98.5 92 20 102/59 93 07/20/16 04:00 T-Piece 35 07/20/16 00:00 T-Piece 35 07/20/16 00:00 98.6 80 20 99/52 96 07/19/16 22:40 96 T-piece 5.00 35 07/19/16 20:00 97.9 79 20 102/55 94 07/19/16 20:00 T-Piece 35 07/19/16 16:00 98.2 81 18 103/58 97 07/19/16 12:00 98.0 78 18 108/59 97 I/O 07/19/16 07/19/16 07/19/16 07/20/16 07/20/16 07/20/16 07:00 15:00 23:00 07:00 15:00 23:00 Intake Total 720 ml 600 ml 480 ml Output Total 600 ml 300 ml 775 ml Balance 120 ml 300 ml -295 ml Intake Oral 720 ml 600 ml 480 ml Output Urine Total 600 ml 300 ml 775 ml # Bowel Movements 0 0 Result Diagram: 07/20/1672707/20/16727 Imaging No imaging ordered or peding within the past 24 hours. Objective Remarks GENERAL: Pt sitting upright in chair at bedside, awake and alert, not in acute distress. Speech impacted due to tracheostomy. SKIN: Warm and dry. Skin wound at site of T- Piece. Red in color. HEAD: Normocephalic. EYES: No scleral icterus. No injection or drainage. NECK: Supple, trachea midline. Trach present. CARDIOVASCULAR: Regular rate and rhythm without murmurs, gallops, or rubs. RESPIRATORY: Breath sounds equal bilaterally. No accessory muscle use. GASTROINTESTINAL: Abdomen soft, large, non-tender, nondistended. Bowel sounds present all quadrants. MUSCULOSKELETAL: No cyanosis, or edema. Pt indicated having low back pain. PSYCHIATRIC: Pt alert and oriented, without over signs of depression or anxiety. Pleasant and cooperative. Procedures 04/30/16 - tracheostomy by Dr. Reyes 05/03/16 - EGD with PEG placement by Dr. Faith 06/09/16 - PEG removal 06/21/16- repeat tracheostomy by Dr. Cuellar Medications and IVs Current Medications Medications (Trade) Dose Ordered Sig/Chapis Route Start Time Stop Time Status Last Admin (NS Flush) 2 ml UNSCH PRN IVF 03/24/16 11:30 05/23/16 05:55 (Lotrisone Cream) 1 applic Q12HR TOPICAL 03/26/16 09:00 07/20/16 09:18 (Lovenox Inj) 40 mg Q12H SQ 03/26/16 18:00 07/20/16 05:24 (Colace Liq) 100 mg Q12HR PO 03/29/16 09:00 07/19/16 21:49 (Tylenol 650 Mg/ 20 ml Liq) 650 mg Q6H PRN PO 03/30/16 15:45 06/23/16 21:37 (Glycerin Adult Supp) 2 gm BID PRN RECTAL 04/01/16 09:00 04/25/16 10:22 (NS Flush) DAILY IVF 04/03/16 09:00 07/18/16 09:00 (NS Flush) UNSCH PRN IVF 04/02/16 09:30 04/22/16 07:42 (Tears Naturale Opth Soln) 1 drop Q4H EACH EYE 04/21/16 18:00 07/20/16 09:18 (Mycostatin Powder) 1 applic Q12HR TOPICAL 04/27/16 11:00 07/20/16 09:17 (Zofran Inj) 4 mg Q6H PRN IV 05/05/16 06:45 (Phazyme Chew) 125 mg DAILY PRN PO 05/11/16 15:00 05/12/16 15:00 (Pill Splitter) 1 ea UNSCH PRN OTHER 05/24/16 10:45 (Protonix) 40 mg DAILY PO 05/26/16 09:00 07/20/16 09:17 (D50w (Vial) Inj) 25 ml UNSCH PRN IV PUSH 05/31/16 22:00 (Levemir Inj) 5 units HS SQ 06/06/16 21:00 07/19/16 21:39 (Lioresal) 5 mg DAILY PO 06/22/16 09:00 07/20/16 09:17 (Lyrica) 75 mg Q12HR PO 06/22/16 09:00 07/20/16 09:17 (Roxicodone) 2.5 mg Q4H PRN PO 06/24/16 17:00 07/20/16 11:09 (Miralax) 17 gm BID PRN PO 07/07/16 11:00 (Silver Nitrate Applicators) 1 appl Q7D PRN TOPICAL 07/17/16 14:45 (Glucagon Inj) 1 mg ONCE PRN SQ 07/18/16 16:00 07/23/16 23:59 Urinary Catheter: No Date of Removal: Jun 29, 2016 Vascular Central Line Catheter: No A/P Problem List: (1) Acute hypercapnic respiratory failure ICD Code: J96.02 Status: Acute (2) Staphylococcus aureus pneumonia ICD Code: J15.211 Status: Acute (3) Encephalopathy ICD Code: G93.40 Status: Acute (4) JACOB (obstructive sleep apnea) ICD Code: G47.33 Status: Acute (5) Diabetes mellitus type 2 in obese ICD Code: E11.9 Status: Acute (6) Morbid obesity with BMI of 50.0-59.9, adult ICD Code: E66.01 Status: Acute (7) Obesity hypoventilation syndrome ICD Code: E66.2 Status: Acute (8) Normocytic anemia ICD Code: D64.9 Status: Chronic Assessment and Plan Mr. Leger is a pleasant 50 year old male with a history of sleep apnea, morbid obesity, DM 2 who was admitted to the hospital on 03/24/2016 due to lightheadedness and dizziness. Initial work up indicated hypercarbia as well as hypoxemia. His O2 sat was 78% in the ED. CTA was negative for PE. He was started on BiPAP. However, due to unsatisfactory response, patient was intubated after neuromuscular paralysis using succinylcholine. Tracheostomy was done on 04/30/2016. Patient remained in the ICU until 05/07/2016. Patient went into acute respiratory failure again on 05/27/2016 and subsequently he was transferred back to ICU. Trach was exchanged on 05/27/2016 and he remained on mechanical ventilation. He was weaned off mechanical ventilation after tolerating CPAP trials. He was placed on T piece trial and tolerated that well. He was subsequently transferred to hospitalist service on 06/05/2016. Acute respiratory failure mixed hypercarbic and hypoxemic Probable obstructive sleep apnea Obesity hypoventilation syndrome - Status post Tracheostomy. - On 35% FiO2 T-piece, O2 sat stable, trach collar, keep O2 sat > 92%. - Pulmonary following. - Continue DuoNeb treatments. -Dr. Perry (Pulmonary medicine) ordered bipap at night for JACOB, please refer to his note for more information. Pneumonia with Staph Aureus, resolved. ID signed off. 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 - Continue Baclofen 5mg daily, Lyrica 75mg bid, with oxycodone 2.5mg PO q4h PRN per pain scale. Diabetes mellitus type 2 with neuropathy - HgbA1c 7.4 in . Goal glucose 140-180. - Continue Levemir 5 units QHS . - Blood glucose well controlled - Continue Accu-checks BID. - Continue Lyrica and Baclofen for neuropathy. -Finger sticks now to be done every 6 hours (07/19/16). Nutrition: status post PEG tube placed initially on 05/03 by LIBBY Faith - 06/09/16: pt complains of irritation/drainage/discomfort at PEG insertion site, tolerating PO intake. - PEG removed 06/09/16 by LIBBY Munson. - Beneprotein discontinued as it had been ordered while/when pt had a PEG tube. Transaminitis: LFTs improved, abdominal pain resolved. - Liver US shows fatty liver. Small stones or tumefactive sludge adherent to one of the gallbladder arcos. Splenomegaly. - Avoid hepatotoxins. - Hepatitis panel negative. Wound on anterior neck 04/05 trach collar, stage III: Patient has a short and large neck. - Optifoam in place. - Apply bacitracin. - Wound cultures with normal sherine. - Wound care following, last saw patient 07/03. -Wound care contacted hospitalist team on 07/17/16 requesting d/c of Silvadene and initiation of Silver nitrate to address wound. Orders placed. Morbid Obesity with BMI 51.8 on admission: Encouraged weight loss. As of BMI is 48.4 Left Shoulder Pain: with decreased ROM. - Xrays negative for fracture/dislocations. - Continue PT - Continue pain control with oxycodone 2.5mg po q4h prn Chronic normocytic anemia: -Labs personally reviewed, values effectively unchanged since last draw. -May be secondary to secondary to chronic health issues; may consider vitamin B6/12 evaluation Full code. DVT prophylaxis: Lovenox. Discharge Planning No significant change in management. Continue placement efforts. Nilton Riley Jr. July 20, 2016 12:14
[2016-07-20 14:17] LABS: HEMOGLOBIN A1b 0.6 %; HEMOGLOBIN Ao 86.9 %; HEMOGLOBIN F 1.1 %; HEMOGLOBIN LA1C 1.7 %; HEMOGLOBIN P3 3.2 %
[2016-07-20] MEDS: INSULIN DETEMIR 100 UNITS/ML VIAL SQ SCH (21:30)
[2016-07-21] VITALS (7 sets, daily range): BP systolic 96–121; BP diastolic 52–60; PULSE 73–89; RESP 20–22; TEMP 97.8–98.9; O2SAT 94–96
[2016-07-21] MEDS: ARTIFICIAL TEARS OPTH SOLN 15 ML BTL EACH EYE SCH ×6 (02:00→22:00)
[2016-07-21] MEDS: ENOXAPARIN SODIUM 40 MG/0.4 ML SYRINGE SQ SCH ×2 (06:02→17:21)
[2016-07-21] MEDS: PREGABALIN 75 MG CAP PO SCH ×2 (08:29→22:11)
[2016-07-21] MEDS: PANTOPRAZOLE SOD 40 MG DELAYED RELEASE TAB PO SCH (08:29)
[2016-07-21] MEDS: BACLOFEN 10 MG TAB PO SCH (08:29)
[2016-07-21] MEDS: BETAMETHASONE/CLOTRIMAZOLE CREAM 15 GM TOPICAL SCH ×2 (08:30→21:00)
[2016-07-21] MEDS: NYSTATIN 100,000 U/GM PWD 15 GM BTL TOPICAL SCH ×2 (08:30→22:15)
[2016-07-21] MEDS: SODIUM CHLORIDE 0.9% FLUSH 5 ML FLUSH IVF SCH (08:31)
[2016-07-21] MEDS: DOCUSATE SODIUM 100 MG/10 ML UDC PO SCH ×2 (08:31→21:00)
--- NOTE | 2016-07-21 14:49 | HHI.PR ---
Subjective Remarks Follow up for chronic respiratory failure. Pt has T-piece in place and verbalization is limited. Pt mouthed "I feel great". However, he expressed having low back pain (throbbing , rated 5/10), pt noted pain medication has been administered. Lowest pain gets to is "2/10". Pt was asked about making his trips to the door and said he hasn't due to being tired. Pt denied fever, cough, shortness of breath, nausea, vomiting, and diarrhea. No new issues noted or reported by pt. Objective Vitals Vital Signs Date Time Temp Pulse Resp B/P Pulse Ox O2 Delivery O2 Flow Rate FiO2 07/21/16 11:50 98.0 73 20 105/59 96 07/21/16 08:58 T-Piece 5.00 35 07/21/16 07:50 97.9 80 20 105/59 95 07/21/16 04:07 T-Piece 5.00 35 07/21/16 04:00 98.3 89 20 96/52 95 07/21/16 00:10 97.8 79 20 101/59 96 07/20/16 20:00 98.6 87 20 100/52 95 07/20/16 16:00 98.0 86 18 119/58 98 I/O 07/20/16 07/20/16 07/20/16 07/21/16 07/21/16 07/21/16 07:00 15:00 23:00 07:00 15:00 23:00 Intake Total 480 ml 1080 ml 240 ml Output Total 775 ml 800 ml 300 ml 250 ml Balance -295 ml 280 ml -60 ml -250 ml Intake Oral 480 ml 1080 ml 240 ml Output Urine Total 775 ml 800 ml 300 ml 250 ml # Voids 1 # Bowel Movements 0 1 2 Result Diagram: 07/20/16 0728 07/20/16727 Imaging No imaging ordered or results pending within the past 24 hours. Objective Remarks GENERAL: Pt laying a bed, watching TV, awake and alert, not in acute distress. Speech impacted due to tracheostomy. SKIN: Warm and dry. Skin wound at site of T- Piece. Bandage covering wound site. HEAD: Normocephalic. EYES: No scleral icterus. No injection or drainage. NECK: Supple, trachea midline. Trach present. CARDIOVASCULAR: Regular rate and rhythm without murmurs, gallops, or rubs. RESPIRATORY: Breath sounds equal bilaterally. No accessory muscle use. GASTROINTESTINAL: Abdomen soft, large, non-tender, nondistended. Bowel sounds present all quadrants. MUSCULOSKELETAL: No cyanosis, or edema. Pt indicated having low back pain. PSYCHIATRIC: Pt alert and oriented, without over signs of depression or anxiety. Pleasant and cooperative. Procedures 04/30/16 - tracheostomy by Dr. Reyes 05/03/16 - EGD with PEG placement by Dr. Faith 06/09/16 - PEG removal 06/21/16- repeat tracheostomy by Dr. Cuellar Medications and IVs Current Medications Medications (Trade) Dose Ordered Sig/Chapis Route Start Time Stop Time Status Last Admin (NS Flush) 2 ml UNSCH PRN IVF 03/24/16 11:30 05/23/16 05:55 (Lotrisone Cream) 1 applic Q12HR TOPICAL 03/26/16 09:00 07/20/16 09:18 (Lovenox Inj) 40 mg Q12H SQ 03/26/16 18:00 07/21/16 06:02 (Colace Liq) 100 mg Q12HR PO 03/29/16 09:00 07/19/16 21:49 (Tylenol 650 Mg/ 20 ml Liq) 650 mg Q6H PRN PO 03/30/16 15:45 06/23/16 21:37 (Glycerin Adult Supp) 2 gm BID PRN RECTAL 04/01/16 09:00 04/25/16 10:22 (NS Flush) DAILY IVF 04/03/16 09:00 07/18/16 09:00 (NS Flush) UNSCH PRN IVF 04/02/16 09:30 04/22/16 07:42 (Tears Naturale Opth Soln) 1 drop Q4H EACH EYE 04/21/16 18:00 07/20/16 17:47 (Mycostatin Powder) 1 applic Q12HR TOPICAL 04/27/16 11:00 07/20/16 09:17 (Zofran Inj) 4 mg Q6H PRN IV 05/05/16 06:45 (Phazyme Chew) 125 mg DAILY PRN PO 05/11/16 15:00 05/12/16 15:00 (Pill Splitter) 1 ea UNSCH PRN OTHER 05/24/16 10:45 (Protonix) 40 mg DAILY PO 05/26/16 09:00 07/21/16 08:29 (D50w (Vial) Inj) 25 ml UNSCH PRN IV PUSH 05/31/16 22:00 (Levemir Inj) 5 units HS SQ 06/06/16 21:00 07/20/16 21:30 (Lioresal) 5 mg DAILY PO 06/22/16 09:00 07/21/16 08:29 (Lyrica) 75 mg Q12HR PO 06/22/16 09:00 07/21/16 08:29 (Roxicodone) 2.5 mg Q4H PRN PO 06/24/16 17:00 07/21/16 11:13 (Miralax) 17 gm BID PRN PO 07/07/16 11:00 (Silver Nitrate Applicators) 1 appl Q7D PRN TOPICAL 07/17/16 14:45 (Glucagon Inj) 1 mg ONCE PRN SQ 07/18/16 16:00 07/23/16 23:59 Date of Removal: Jun 29, 2016 A/P Problem List: (1) Acute hypercapnic respiratory failure ICD Code: J96.02 Status: Acute (2) Staphylococcus aureus pneumonia ICD Code: J15.211 Status: Acute (3) Encephalopathy ICD Code: G93.40 Status: Acute (4) JACOB (obstructive sleep apnea) ICD Code: G47.33 Status: Acute (5) Diabetes mellitus type 2 in obese ICD Code: E11.9 Status: Acute (6) Morbid obesity with BMI of 50.0-59.9, adult ICD Code: E66.01 Status: Acute (7) Obesity hypoventilation syndrome ICD Code: E66.2 Status: Acute (8) Normocytic anemia ICD Code: D64.9 Status: Chronic Assessment and Plan Mr. Leger is a pleasant 50 year old male with a history of sleep apnea, morbid obesity, DM 2 who was admitted to the hospital on 03/24/2016 due to lightheadedness and dizziness. Initial work up indicated hypercarbia as well as hypoxemia. His O2 sat was 78% in the ED. CTA was negative for PE. He was started on BiPAP. However, due to unsatisfactory response, patient was intubated after neuromuscular paralysis using succinylcholine. Tracheostomy was done on 04/30/2016. Patient remained in the ICU until 05/07/2016. Patient went into acute respiratory failure again on 05/27/2016 and subsequently he was transferred back to ICU. Trach was exchanged on 05/27/2016 and he remained on mechanical ventilation. He was weaned off mechanical ventilation after tolerating CPAP trials. He was placed on T piece trial and tolerated that well. He was subsequently transferred to hospitalist service on 06/05/2016. Acute respiratory failure mixed hypercarbic and hypoxemic Probable obstructive sleep apnea Obesity hypoventilation syndrome - Status post Tracheostomy. - On 35% FiO2 T-piece, O2 sat stable, trach collar, keep O2 sat > 92%. - Pulmonary following. - Continue DuoNeb treatments. -Dr. Perry (Pulmonary medicine) ordered bipap at night for JACOB, please refer to his note for more information. Pneumonia with Staph Aureus, resolved. ID signed off. 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 - Continue Baclofen 5mg daily, Lyrica 75mg bid, with oxycodone 2.5mg PO q4h PRN per pain scale. Diabetes mellitus type 2 with neuropathy - HgbA1c 7.4 in . Goal glucose 140-180. - Continue Levemir 5 units QHS . - Blood glucose well controlled - Continue Accu-checks BID. - Continue Lyrica and Baclofen for neuropathy. -Finger sticks now to be done every 6 hours (07/19/16). Nutrition: status post PEG tube placed initially on 05/03 by LIBBY Faith - 06/09/16: pt complains of irritation/drainage/discomfort at PEG insertion site, tolerating PO intake. - PEG removed 06/09/[address] Munson. - Beneprotein discontinued as it had been ordered while/when pt had a PEG tube. Transaminitis: LFTs improved, abdominal pain resolved. - Liver US shows fatty liver. Small stones or tumefactive sludge adherent to one of the gallbladder arcos. Splenomegaly. - Avoid hepatotoxins. - Hepatitis panel negative. Wound on anterior neck 04/05 trach collar, stage III: Patient has a short and large neck. - Optifoam in place. - Apply bacitracin. - Wound cultures with normal sherine. - Wound care following, last saw patient 07/03. -Wound care contacted hospitalist team on 07/17/16 requesting d/c of Silvadene and initiation of Silver nitrate to address wound. Orders placed. Morbid Obesity with BMI 51.8 on admission: Encouraged weight loss. As of BMI is 48.4 Left Shoulder Pain: with decreased ROM. - Xrays negative for fracture/dislocations. - Continue PT - Continue pain control with oxycodone 2.5mg po q4h prn Chronic normocytic anemia: -Labs personally reviewed, values effectively unchanged since last draw. -May be secondary to secondary to chronic health issues; may consider vitamin B6/12 evaluation Full code. DVT prophylaxis: Lovenox. Discharge Planning No significant change in management. Continue placement efforts. Nilton Riley Jr. July 21, 2016 14:49
--- NOTE | 2016-07-21 16:39 | HHI.PR ---
Subjective Remarks respiratory failure DOING WELL , NOW ON T TUBE Objective Vital Signs Date Time Temp Pulse Resp B/P Pulse Ox O2 Delivery O2 Flow Rate FiO2 07/21/16 15:50 98.4 80 20 109/58 94 07/21/16 11:50 98.0 73 20 105/59 96 07/21/16 08:58 T-Piece 5.00 35 07/21/16 07:50 97.9 80 20 105/59 95 07/21/16 04:07 T-Piece 5.00 35 07/21/16 04:00 98.3 89 20 96/52 95 07/21/16 00:10 97.8 79 20 101/59 96 07/20/16 20:00 98.6 87 20 100/52 95 I/O 07/20/16 07/20/16 07/20/16 07/21/16 07/21/16 07/21/16 06:59 14:59 22:59 06:59 14:59 22:59 Intake Total 480 ml 1080 ml 240 ml Output Total 775 ml 800 ml 300 ml 250 ml Balance -295 ml 280 ml -60 ml -250 ml Intake Oral 480 ml 1080 ml 240 ml Output Urine Total 775 ml 800 ml 300 ml 250 ml # Voids 1 # Bowel Movements 0 1 2 Result Diagram: 07/20/16 0728 07/20/16 0728 Procedures 04/30/16 - tracheostomy by Dr. Reyes 05/03/16 - EGD with PEG placement by Dr. Faith 06/09/16 - PEG removal 06/21/16- repeat tracheostomy by Dr. Cuellar Objective Remarks GENERAL: SKIN: Warm and dry.on vent support HEAD: Atraumatic. Normocephalic. EYES: Pupils equal and round. No scleral icterus. No injection or drainage. ENT: No nasal bleeding or discharge. Mucous membranes pink and moist. NECK: Trachea midline. No JVD. CARDIOVASCULAR: Regular rate and rhythm. RESPIRATORY: No accessory muscle use. Clear to auscultation. Breath sounds equal bilaterally. GASTROINTESTINAL: Abdomen soft, non-tender, nondistended. Hepatic and splenic margins not palpable. MUSCULOSKELETAL: Extremities without clubbing, cyanosis, or edema. No obvious deformities. NEUROLOGICAL: Awake and alert. No obvious cranial nerve deficits.right hemiplegia Assessment and Plan Assessment and Plan respiratory failure morbid obesity plan O2 NEEDED pulm toilet prognosis guarded Orlando Perry MD July 21, 2016 16:39
[2016-07-21] MEDS: INSULIN DETEMIR 100 UNITS/ML VIAL SQ SCH (22:27)
[2016-07-22] VITALS (7 sets, daily range): BP systolic 108–157; BP diastolic 56–66; PULSE 76–105; RESP 16–20; TEMP 97.8–99.3; O2SAT 92–96
[2016-07-22] MEDS: ARTIFICIAL TEARS OPTH SOLN 15 ML BTL EACH EYE SCH ×6 (01:01→22:00)
[2016-07-22] MEDS: ENOXAPARIN SODIUM 40 MG/0.4 ML SYRINGE SQ SCH ×2 (05:36→16:50)
[2016-07-22] MEDS: PREGABALIN 75 MG CAP PO SCH ×2 (08:00→22:23)
[2016-07-22] MEDS: PANTOPRAZOLE SOD 40 MG DELAYED RELEASE TAB PO SCH (08:00)
[2016-07-22] MEDS: BETAMETHASONE/CLOTRIMAZOLE CREAM 15 GM TOPICAL SCH ×2 (08:01→21:00)
[2016-07-22] MEDS: SODIUM CHLORIDE 0.9% FLUSH 5 ML FLUSH IVF SCH (08:01)
[2016-07-22] MEDS: NYSTATIN 100,000 U/GM PWD 15 GM BTL TOPICAL SCH ×2 (08:01→21:00)
[2016-07-22] MEDS: DOCUSATE SODIUM 100 MG/10 ML UDC PO SCH ×2 (08:01→21:00)
[2016-07-22] MEDS: BACLOFEN 10 MG TAB PO SCH (08:01)
--- NOTE | 2016-07-22 12:46 | HHI.PR ---
Subjective Remarks Follow up for chronic respiratory failure. Pt has T-piece in place and verbalization is limited. Pt was encoutnered sitting up in a chair bathing. Pt mouthed "I feel great". However, he expressed having low back pain (throbbing , rated 5/10), pt noted pain medication has been administered. Pt was asked about making his trips to the door and said he hasn't due to being tired. Pt denied fever, cough, shortness of breath, nausea, vomiting, and diarrhea. No new issues noted or reported by pt. Objective Vitals Vital Signs Date Time Temp Pulse Resp B/P Pulse Ox O2 Delivery O2 Flow Rate FiO2 07/22/16 09:10 93 T-piece 35 07/22/16 08:24 T-Piece 5.00 35 07/22/16 08:00 97.8 80 16 109/63 94 07/22/16 06:00 98.1 76 20 113/61 94 07/22/16 00:00 98.0 78 20 129/61 96 07/22/16 00:00 T-Piece 5.00 35 07/21/16 20:50 96 T-piece 35 07/21/16 20:00 98.9 87 22 121/60 94 07/21/16 20:00 T-Piece 5.00 35 07/21/16 15:50 98.4 80 20 109/58 94 I/O 07/21/16 07/21/16 07/21/16 07/22/16 07/22/16 07/22/16 06:59 14:59 22:59 06:59 14:59 22:59 Intake Total 480 ml 240 ml Output Total 250 ml 500 ml 300 ml 400 ml 250 ml Balance -250 ml -20 ml -60 ml -400 ml -250 ml Intake Oral 480 ml 240 ml Output Urine Total 250 ml 500 ml 300 ml 400 ml 250 ml # Voids 1 # Bowel Movements 2 0 Result Diagram: 07/20/1672707/20/16727 Imaging No imaging ordered or resulted within past 24 hours. Objective Remarks GENERAL: Pt sitting in bedside chair, bathing himself, awake and alert, not in acute distress. Speech impacted due to tracheostomy. SKIN: Warm and dry. Skin wound at site of T- Piece. Bandage covering wound site. HEAD: Normocephalic. EYES: No scleral icterus. No injection or drainage. NECK: Supple, trachea midline. Trach present. CARDIOVASCULAR: Regular rate and rhythm without murmurs, gallops, or rubs. RESPIRATORY: Breath sounds equal bilaterally. No accessory muscle use. GASTROINTESTINAL: Abdomen soft, large, non-tender, nondistended. Bowel sounds present all quadrants. MUSCULOSKELETAL: No cyanosis, or edema. Pt indicated having low back pain. PSYCHIATRIC: Pt alert and oriented, without over signs of depression or anxiety. Pleasant and cooperative. Procedures 04/30/16 - tracheostomy by Dr. Reyes 05/03/16 - EGD with PEG placement by Dr. Faith 06/09/16 - PEG removal 06/21/16- repeat tracheostomy by Dr. Cuellar Date of Removal: Jun 29, 2016 A/P Problem List: (1) Acute hypercapnic respiratory failure ICD Code: J96.02 Status: Acute (2) Staphylococcus aureus pneumonia ICD Code: J15.211 Status: Acute (3) Encephalopathy ICD Code: G93.40 Status: Acute (4) JACOB (obstructive sleep apnea) ICD Code: G47.33 Status: Acute (5) Diabetes mellitus type 2 in obese ICD Code: E11.9 Status: Acute (6) Morbid obesity with BMI of 50.0-59.9, adult ICD Code: E66.01 Status: Acute (7) Obesity hypoventilation syndrome ICD Code: E66.2 Status: Acute (8) Normocytic anemia ICD Code: D64.9 Status: Chronic Assessment and Plan Mr. Leger is a pleasant 50 year old male with a history of sleep apnea, morbid obesity, DM 2 who was admitted to the hospital on 03/24/2016 due to lightheadedness and dizziness. Initial work up indicated hypercarbia as well as hypoxemia. His O2 sat was 78% in the ED. CTA was negative for PE. He was started on BiPAP. However, due to unsatisfactory response, patient was intubated after neuromuscular paralysis using succinylcholine. Tracheostomy was done on 04/30/2016. Patient remained in the ICU until 05/07/2016. Patient went into acute respiratory failure again on 05/27/2016 and subsequently he was transferred back to ICU. Trach was exchanged on 05/27/2016 and he remained on mechanical ventilation. He was weaned off mechanical ventilation after tolerating CPAP trials. He was placed on T piece trial and tolerated that well. He was subsequently transferred to hospitalist service on 06/05/2016. Acute respiratory failure mixed hypercarbic and hypoxemic Probable obstructive sleep apnea Obesity hypoventilation syndrome - Status post Tracheostomy. - On 35% FiO2 T-piece, O2 sat stable, trach collar, keep O2 sat > 92%. - Pulmonary following. - Continue DuoNeb treatments. -Dr. Perry (Pulmonary medicine) ordered bipap at night for JACOB, please refer to his note for more information. Pneumonia with Staph Aureus, resolved. ID signed off. 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 - Continue Baclofen 5mg daily, Lyrica 75mg bid, with oxycodone 2.5mg PO q4h PRN per pain scale. Diabetes mellitus type 2 with neuropathy - HgbA1c 7.4 in . Goal glucose 140-180. - Continue Levemir 5 units QHS . - Blood glucose well controlled - Continue Accu-checks BID. - Continue Lyrica and Baclofen for neuropathy. -Finger sticks now to be done every 6 hours (07/19/16). Nutrition: status post PEG tube placed initially on 05/03 by LIBBY Faith - 06/09/16: pt complains of irritation/drainage/discomfort at PEG insertion site, tolerating PO intake. - PEG removed 06/09/16 by LIBBY Munson. - Beneprotein discontinued as it had been ordered while/when pt had a PEG tube. Transaminitis: LFTs improved, abdominal pain resolved. - Liver US shows fatty liver. Small stones or tumefactive sludge adherent to one of the gallbladder arcos. Splenomegaly. - Avoid hepatotoxins. - Hepatitis panel negative. 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 - Optifoam in place. - Apply bacitracin. - Wound cultures with normal sherine. - Wound care following, last saw patient 07/03. -Wound care contacted hospitalist team on 07/17/16 requesting d/c of Silvadene and initiation of Silver nitrate to address wound. Orders placed. Morbid Obesity with BMI 51.8 on admission: Encouraged weight loss. As of BMI is 48.4. BMI is increased to 50.0 on 07/22/16 Left Shoulder Pain: with decreased ROM. - Xrays negative for fracture/dislocations. - Continue PT - Continue pain control with oxycodone 2.5mg po q4h prn Chronic normocytic anemia: -Labs personally reviewed, values effectively unchanged since last draw. -May be secondary to secondary to chronic health issues; may consider vitamin B6/12 evaluation Full code. DVT prophylaxis: Lovenox. Discharge Planning No significant change in management. Continue placement efforts. Nilton Riley Jr. July 22, 2016 12:46
--- NOTE | 2016-07-22 13:44 | HHI.PR ---
Subjective Remarks respiratory failure DOING WELL , NOW ON T TUBE Objective Vital Signs Date Time Temp Pulse Resp B/P Pulse Ox O2 Delivery O2 Flow Rate FiO2 07/22/16 09:10 93 T-piece 35 07/22/16 08:24 T-Piece 5.00 35 07/22/16 08:00 97.8 80 16 109/63 94 07/22/16 06:00 98.1 76 20 113/61 94 07/22/16 00:00 98.0 78 20 129/61 96 07/22/16 00:00 T-Piece 5.00 35 07/21/16 20:50 96 T-piece 35 07/21/16 20:00 98.9 87 22 121/60 94 07/21/16 20:00 T-Piece 5.00 35 07/21/16 15:50 98.4 80 20 109/58 94 I/O 07/21/16 07/21/16 07/21/16 07/22/16 07/22/16 07/22/16 07:00 15:00 23:00 07:00 15:00 23:00 Intake Total 480 ml 240 ml Output Total 250 ml 500 ml 300 ml 400 ml 250 ml Balance -250 ml -20 ml -60 ml -400 ml -250 ml Intake Oral 480 ml 240 ml Output Urine Total 250 ml 500 ml 300 ml 400 ml 250 ml # Voids 1 # Bowel Movements 2 0 Result Diagram: 07/20/1672707/20/1628 Procedures 04/30/16 - tracheostomy by Dr. Reyes 05/03/16 - EGD with PEG placement by Dr. Faith 06/09/16 - PEG removal 06/21/16- repeat tracheostomy by Dr. Cuellar Objective Remarks GENERAL: SKIN: Warm and dry.on vent support HEAD: Atraumatic. Normocephalic. EYES: Pupils equal and round. No scleral icterus. No injection or drainage. ENT: No nasal bleeding or discharge. Mucous membranes pink and moist. NECK: Trachea midline. No JVD. CARDIOVASCULAR: Regular rate and rhythm. RESPIRATORY: No accessory muscle use. Clear to auscultation. Breath sounds equal bilaterally. GASTROINTESTINAL: Abdomen soft, non-tender, nondistended. Hepatic and splenic margins not palpable. MUSCULOSKELETAL: Extremities without clubbing, cyanosis, or edema. No obvious deformities. NEUROLOGICAL: Awake and alert. No obvious cranial nerve deficits.right hemiplegia Assessment and Plan Assessment and Plan respiratory failure morbid obesity plan O2 NEEDED pulm toilet prognosis guarded Orlando Perry MD July 22, 2016 13:44
[2016-07-22] MEDS: INSULIN DETEMIR 100 UNITS/ML VIAL SQ SCH (22:30)
[2016-07-23] VITALS (8 sets, daily range): BP systolic 99–113; BP diastolic 62–69; PULSE 82–94; RESP 18–19; TEMP 97.7–98.8; O2SAT 93–97
[2016-07-23] MEDS: ARTIFICIAL TEARS OPTH SOLN 15 ML BTL EACH EYE SCH ×6 (01:26→21:29)
[2016-07-23] MEDS: ENOXAPARIN SODIUM 40 MG/0.4 ML SYRINGE SQ SCH ×2 (06:22→18:00)
[2016-07-23] MEDS: NYSTATIN 100,000 U/GM PWD 15 GM BTL TOPICAL SCH ×2 (09:00→21:00)
[2016-07-23] MEDS: SODIUM CHLORIDE 0.9% FLUSH 5 ML FLUSH IVF SCH (09:00)
[2016-07-23] MEDS: DOCUSATE SODIUM 100 MG/10 ML UDC PO SCH ×2 (09:00→21:00)
[2016-07-23] MEDS: BETAMETHASONE/CLOTRIMAZOLE CREAM 15 GM TOPICAL SCH ×2 (09:00→21:00)
[2016-07-23] MEDS: PANTOPRAZOLE SOD 40 MG DELAYED RELEASE TAB PO SCH (09:03)
[2016-07-23] MEDS: PREGABALIN 75 MG CAP PO SCH ×2 (09:03→21:24)
[2016-07-23] MEDS: BACLOFEN 10 MG TAB PO SCH (09:03)
--- NOTE | 2016-07-23 11:44 | HHI.PR ---
Subjective Remarks Follow-up visit respiratory failure, tracheostomy, DM 2. Patient seen and examined today. Trach in place on T piece, tolerating well. States his doing well signal in okay limited verbalization but able to mouth words and write responses. Denies pain and discomfort. Denies SOB/ dyspnea. Denies chest pain , palpitations, headaches, dizziness. Denies fevers, chills, n/v/d. Denies hematuria, dysuria. Objective Vitals Vital Signs Date Time Temp Pulse Resp B/P Pulse Ox O2 Delivery O2 Flow Rate FiO2 07/23/16 10:33 96 T-piece 35 07/23/16 08:08 97.7 86 19 99/63 94 07/23/16 08:00 94 T-Piece 5.00 35 Humidified 07/23/16 04:00 98.4 90 18 113/69 93 07/23/16 00:00 98.8 94 18 108/68 94 07/22/16 22:32 T-Piece 5.00 35 07/22/16 20:00 99.3 105 18 108/59 92 07/22/16 16:00 98.0 96 18 119/56 93 07/22/16 12:00 97.9 93 18 157/66 94 I/O 07/22/16 07/22/16 07/22/16 07/23/16 07/23/16 07/23/16 06:59 14:59 22:59 06:59 14:59 22:59 Intake Total 480 ml 240 ml 100 ml Output Total 400 ml 650 ml 300 ml 500 ml Balance -400 ml -170 ml -60 ml -400 ml Intake Oral 480 ml 240 ml 100 ml Output Urine Total 400 ml 650 ml 300 ml 500 ml # Bowel Movements 0 0 Result Diagram: 07/20/16 0728 07/20/16 0728 Imaging Last Impressions Chest X-Ray 06/30/16 0600 Signed Impressions: Service Date/Time: Thursday, June 30, 2016 06:07 - CONCLUSION: No significant change. Mild bilateral perihilar and basilar consolidation again noted. Ubaldo Ortiz MD Shoulder X-Ray 06/28/16 0000 Signed Impressions: Service Date/Time: June 15:12 - CONCLUSION: 1. Limited but negative examination of the shoulder. Kyaw Rojo MD Abdomen X-Ray 06/19/16 0000 Signed Impressions: Service Date/Time: Sunday, June 19, 2016 10:43 - CONCLUSION: Gastric tube tip does not cross the diaphragm and the side port is approximately 8 cm above the diaphragm. Chano Goodwin MD Lower Extremity Ultrasound 06/04/16 0000 Signed Impressions: Service Date/Time: Saturday, June 04, 2016 14:54 - CONCLUSION: 1. No DVT identified. Dc Barton MD Liver Ultrasound 05/09/16 0000 Signed Impressions: Service Date/Time: Monday, May 09, 2016 22:28 - CONCLUSION: 1. Enlarged, fatty liver. 2. Small stones or tumefactive sludge adherent to one of the gallbladder arcos. 3. Splenomegaly. 4. Pancreas is obscured by overlying bowel gas and patient's body habitus. Arthur Kennedy MD Chest CT 03/28/16 0836 Signed Impressions: Service Date/Time: Monday, March 28, 2016 09:57 - CONCLUSION: Development areas of air bronchograms and consolidation more prominent in the right and left posterior basilar segments of the lower lobes. ET tube above the chanelle. Bernrad Hartman MD CT Angiography 03/24/16 1121 Signed Impressions: Service Date/Time: Thursday, March 24, 2016 12:47 - CONCLUSION: 1. There is respiratory motion artifact but no PE is identified through most of the segmental level pulmonary arteries. 2. Mildly enlarged main pulmonary artery may indicate pulmonary arterial hypertension. 3. 11 mm left lower lobe noncalcified pulmonary nodule. Suggest correlation with any prior imaging studies that could confirm longer-term stability. If none are available consider short-term followup noncontrast chest CT in approximately 3 months. Ubaldo Rodas MD Procedures 04/30/16 - tracheostomy by Dr. Reyes 05/03/16 - EGD with PEG placement by Dr. Faith 06/09/16 - PEG removal 06/21/16- repeat tracheostomy by Dr. Cuellar Date of Removal: Jun 29, 2016 A/P Problem List: (1) Acute hypercapnic respiratory failure ICD Code: J96.02 Status: Acute (2) Staphylococcus aureus pneumonia ICD Code: J15.211 Status: Acute (3) Encephalopathy ICD Code: G93.40 Status: Acute (4) JACOB (obstructive sleep apnea) ICD Code: G47.33 Status: Acute (5) Diabetes mellitus type 2 in obese ICD Code: E11.9 Status: Acute (6) Morbid obesity with BMI of 50.0-59.9, adult ICD Code: E66.01 Status: Acute (7) Obesity hypoventilation syndrome ICD Code: E66.2 Status: Acute (8) Normocytic anemia ICD Code: D64.9 Status: Chronic Assessment and Plan Mr. Leger is a pleasant 50 year old male with a history of sleep apnea, morbid obesity, DM 2 who was admitted to the hospital on 03/24/2016 due to lightheadedness and dizziness. Initial work up indicated hypercarbia as well as hypoxemia. His O2 sat was 78% in the ED. CTA was negative for PE. He was started on BiPAP. However, due to unsatisfactory response, patient was intubated after neuromuscular paralysis using succinylcholine. Tracheostomy was done on 04/30/2016. Patient remained in the ICU until 05/07/2016. Patient went into acute respiratory failure again on 05/27/2016 and subsequently he was transferred back to ICU. Trach was exchanged on 05/27/2016 and he remained on mechanical ventilation. He was weaned off mechanical ventilation after tolerating CPAP trials. He was placed on T piece trial and tolerated that well. He was subsequently transferred to hospitalist service on 06/05/2016. Acute respiratory failure mixed hypercarbic and hypoxemic Probable obstructive sleep apnea Obesity hypoventilation syndrome - Status post Tracheostomy. - On 35% FiO2 T-piece, O2 sat stable, trach collar, keep O2 sat > 92%. - Pulmonary following. Dr. Perry (Pulmonary medicine) ordered bipap at night for JACOB. - Continue DuoNeb treatments. - As per patient, Dr. Perry plans to decannulate him soon and do sleep study so he is able to have CPAP/BiPAP at home upon discharge. Neuropathy - Continue Baclofen 5mg daily, Lyrica 75mg bid, with oxycodone 2.5mg PO q4h PRN per pain scale. Diabetes mellitus type 2 with neuropathy - HgbA1c 7.4 in . Goal glucose 140-180. - Continue Levemir 5 units QHS . - Accu-Cheks at goal - Repeat hemoglobin A1c 5.2. Patient may be able to benefit with metformin use and if blood sugars continued to be at home may wean off of Levemir use and be discharged home with metformin. Nutrition: status post PEG tube placed initially on 05/[address] Faith - PEG removed 06/09/[address] Munson. - Patient tolerating by mouth diet. Transaminitis: LFTs improved, abdominal pain resolved. - Liver US shows fatty liver. Small stones or tumefactive sludge adherent to one of the gallbladder arcos. Splenomegaly. - Avoid hepatotoxins. - Hepatitis panel negative. Wound on anterior neck 04/05 trach collar, stage III: Patient has a short and large neck. - Optifoam in place. - Apply bacitracin. - Wound cultures with normal sherine. - Wound care following, recommended silver nitrate for tracheostomy wound. Continue with dressing changes. Continue to monitor wound. Morbid Obesity with BMI 51.8 on admission: Encouraged weight loss. Current BMI 49.8 Left Shoulder Pain: with decreased ROM. - Xrays negative for fracture/dislocations. - Continue PT - Continue pain control with oxycodone 2.5mg po q4h prn Chronic normocytic anemia - Labs reviewed, values effectively unchanged since last draw. - May be secondary to chronic health issues; may consider vitamin B6/12 evaluation Pneumonia with Staph Aureus, resolved. ID signed off. Toxic metabolic encephalopathy, resolved. Full code. DVT prophylaxis: Lovenox. Discharge Planning Needs placement efforts, coordinating with case management. Mel Raymundo July 23, 2016 11:44
--- NOTE | 2016-07-23 16:51 | HHI.PR ---
Subjective Remarks respiratory failure DOING WELL , NOW ON T TUBE Objective Vital Signs Date Time Temp Pulse Resp B/P Pulse Ox O2 Delivery O2 Flow Rate FiO2 07/23/16 16:24 98.3 82 18 106/62 96 07/23/16 12:11 98.4 90 18 112/64 97 07/23/16 10:33 96 T-piece 35 07/23/16 08:08 97.7 86 19 99/63 94 07/23/16 08:00 94 T-Piece 5.00 35 Humidified 07/23/16 04:00 98.4 90 18 113/69 93 07/23/16 00:00 98.8 94 18 108/68 94 07/22/16 22:32 T-Piece 5.00 35 07/22/16 20:00 99.3 105 18 108/59 92 I/O 07/22/16 07/22/16 07/22/16 07/23/16 07/23/16 07/23/16 07:00 15:00 23:00 07:00 15:00 23:00 Intake Total 480 ml 240 ml 100 ml 960 ml Output Total 400 ml 650 ml 300 ml 500 ml 500 ml Balance -400 ml -170 ml -60 ml -400 ml 460 ml Intake Oral 480 ml 240 ml 100 ml 960 ml Output Urine Total 400 ml 650 ml 300 ml 500 ml 500 ml # Bowel Movements 0 0 1 Result Diagram: 07/20/1628 07/20/16 0728 Procedures 04/30/16 - tracheostomy by Dr. Reyes 05/03/16 - EGD with PEG placement by Dr. Faith 06/09/16 - PEG removal 06/21/16- repeat tracheostomy by Dr. Cuellar Objective Remarks GENERAL: SKIN: Warm and dry.on vent support HEAD: Atraumatic. Normocephalic. EYES: Pupils equal and round. No scleral icterus. No injection or drainage. ENT: No nasal bleeding or discharge. Mucous membranes pink and moist. NECK: Trachea midline. No JVD. CARDIOVASCULAR: Regular rate and rhythm. RESPIRATORY: No accessory muscle use. Clear to auscultation. Breath sounds equal bilaterally. GASTROINTESTINAL: Abdomen soft, non-tender, nondistended. Hepatic and splenic margins not palpable. MUSCULOSKELETAL: Extremities without clubbing, cyanosis, or edema. No obvious deformities. NEUROLOGICAL: Awake and alert. No obvious cranial nerve deficits.right hemiplegia Assessment and Plan Assessment and Plan respiratory failure morbid obesity plan O2 NEEDED pulm toilet prognosis guarded Orlando Perry MD July 23, 2016 16:51
[2016-07-23] MEDS: INSULIN DETEMIR 100 UNITS/ML VIAL SQ SCH (21:27)
[2016-07-24] VITALS (9 sets, daily range): BP systolic 100–120; BP diastolic 52–70; PULSE 80–91; RESP 16–18; TEMP 97.9–98.9; O2SAT 94–98
[2016-07-24] MEDS: ARTIFICIAL TEARS OPTH SOLN 15 ML BTL EACH EYE SCH ×6 (01:55→21:09)
[2016-07-24] MEDS: ENOXAPARIN SODIUM 40 MG/0.4 ML SYRINGE SQ SCH ×2 (06:39→17:53)
--- NOTE | 2016-07-24 08:50 | HHI.PR ---
Subjective Remarks respiratory failure DOING WELL , NOW ON T TUBE Objective Vital Signs Date Time Temp Pulse Resp B/P Pulse Ox O2 Delivery O2 Flow Rate FiO2 07/24/16 04:19 97 T-piece 35 07/24/16 04:00 97.9 80 18 120/70 96 07/24/16 00:53 98.8 86 18 100/52 96 07/24/16 00:00 T-Piece 6.00 35 07/23/16 21:48 97.9 89 18 106/63 94 07/23/16 20:00 T-Piece 6.00 35 07/23/16 16:24 98.3 82 18 106/62 96 07/23/16 12:11 98.4 90 18 112/64 97 07/23/16 10:33 96 T-piece 35 I/O 07/23/16 07/23/16 07/23/16 07/24/16 07/24/16 07/24/16 07:00 15:00 23:00 07:00 15:00 23:00 Intake Total 100 ml 960 ml Output Total 500 ml 500 ml 500 ml 650 ml Balance -400 ml 460 ml -500 ml -650 ml Intake Oral 100 ml 960 ml Output Urine Total 500 ml 500 ml 500 ml 650 ml # Voids 3 # Bowel Movements 0 1 0 0 Result Diagram: 07/20/1672707/20/16727 Procedures 04/30/16 - tracheostomy by Dr. Reyes 05/03/16 - EGD with PEG placement by Dr. Faith 06/09/16 - PEG removal 06/21/16- repeat tracheostomy by Dr. Cuellar Objective Remarks GENERAL: SKIN: Warm and dry.on vent support HEAD: Atraumatic. Normocephalic. EYES: Pupils equal and round. No scleral icterus. No injection or drainage. ENT: No nasal bleeding or discharge. Mucous membranes pink and moist. NECK: Trachea midline. No JVD. CARDIOVASCULAR: Regular rate and rhythm. RESPIRATORY: No accessory muscle use. Clear to auscultation. Breath sounds equal bilaterally. GASTROINTESTINAL: Abdomen soft, non-tender, nondistended. Hepatic and splenic margins not palpable. MUSCULOSKELETAL: Extremities without clubbing, cyanosis, or edema. No obvious deformities. NEUROLOGICAL: Awake and alert. No obvious cranial nerve deficits.right hemiplegia Assessment and Plan Assessment and Plan respiratory failure morbid obesity plan O2 NEEDED pulm toilet prognosis guarded Orlando Perry MD July 24, 2016 08:50
[2016-07-24] MEDS: SODIUM CHLORIDE 0.9% FLUSH 5 ML FLUSH IVF SCH (09:00)
[2016-07-24] MEDS: DOCUSATE SODIUM 100 MG/10 ML UDC PO SCH ×2 (09:00→21:00)
[2016-07-24] MEDS: BACLOFEN 10 MG TAB PO SCH (09:00)
[2016-07-24] MEDS: PANTOPRAZOLE SOD 40 MG DELAYED RELEASE TAB PO SCH (09:28)
[2016-07-24] MEDS: PREGABALIN 75 MG CAP PO SCH ×2 (09:28→21:07)
[2016-07-24] MEDS: BETAMETHASONE/CLOTRIMAZOLE CREAM 15 GM TOPICAL SCH ×2 (09:33→21:00)
[2016-07-24] MEDS: NYSTATIN 100,000 U/GM PWD 15 GM BTL TOPICAL SCH ×2 (09:33→21:00)
--- NOTE | 2016-07-24 09:51 | HHI.PR ---
Subjective Remarks Follow-up visit respiratory failure, tracheostomy, DM 2. Patient seen and examined today. Trach in place on T piece, tolerating well. States his doing well. Last words, limited verbalization secondary to trach. Complains of bilateral feet being very dry and scaly. Otherwise, denies pain and discomfort. Denies SOB/ dyspnea. Denies chest pain, palpitations, headaches, dizziness. Denies fevers, chills, n/v/d. Denies hematuria, dysuria. Objective Vitals Vital Signs Date Time Temp Pulse Resp B/P Pulse Ox O2 Delivery O2 Flow Rate FiO2 07/24/16 08:00 98.0 81 16 108/59 94 07/24/16 04:19 97 T-piece 35 07/24/16 04:00 97.9 80 18 120/70 96 07/24/16 00:53 98.8 86 18 100/52 96 07/24/16 00:00 T-Piece 6.00 35 07/23/16 21:48 97.9 89 18 106/63 94 07/23/16 20:00 T-Piece 6.00 35 07/23/16 16:24 98.3 82 18 106/62 96 07/23/16 12:11 98.4 90 18 112/64 97 07/23/16 10:33 96 T-piece 35 I/O 07/23/16 07/23/16 07/23/16 07/24/16 07/24/16 07/24/16 06:59 14:59 22:59 06:59 14:59 22:59 Intake Total 100 ml 960 ml Output Total 500 ml 500 ml 500 ml 650 ml Balance -400 ml 460 ml -500 ml -650 ml Intake Oral 100 ml 960 ml Output Urine Total 500 ml 500 ml 500 ml 650 ml # Voids 3 # Bowel Movements 0 1 0 0 Result Diagram: 07/20/16 0728 07/20/16 0728 Imaging Last Impressions Chest X-Ray 06/30/16 0600 Signed Impressions: Service Date/Time: Thursday, June 30, 2016 06:07 - CONCLUSION: No significant change. Mild bilateral perihilar and basilar consolidation again noted. Ubaldo Ortiz MD Shoulder X-Ray 06/28/16 0000 Signed Impressions: Service Date/Time: June 15:12 - CONCLUSION: 1. Limited but negative examination of the shoulder. Kyaw Rojo MD Abdomen X-Ray 06/19/16 0000 Signed Impressions: Service Date/Time: Sunday, June 19, 2016 10:43 - CONCLUSION: Gastric tube tip does not cross the diaphragm and the side port is approximately 8 cm above the diaphragm. Chano Goodwin MD Lower Extremity Ultrasound 06/04/16 0000 Signed Impressions: Service Date/Time: Saturday, June 04, 2016 14:54 - CONCLUSION: 1. No DVT identified. Dc Barton MD Liver Ultrasound 05/09/16 0000 Signed Impressions: Service Date/Time: Monday, May 09, 2016 22:28 - CONCLUSION: 1. Enlarged, fatty liver. 2. Small stones or tumefactive sludge adherent to one of the gallbladder arcos. 3. Splenomegaly. 4. Pancreas is obscured by overlying bowel gas and patient's body habitus. Arthur Kennedy MD Chest CT 03/28/16 0836 Signed Impressions: Service Date/Time: Monday, March 28, 2016 09:57 - CONCLUSION: Development areas of air bronchograms and consolidation more prominent in the right and left posterior basilar segments of the lower lobes. ET tube above the chanelle. Bernard Hartman MD CT Angiography 03/24/16 1121 Signed Impressions: Service Date/Time: Thursday, March 24, 2016 12:47 - CONCLUSION: 1. There is respiratory motion artifact but no PE is identified through most of the segmental level pulmonary arteries. 2. Mildly enlarged main pulmonary artery may indicate pulmonary arterial hypertension. 3. 11 mm left lower lobe noncalcified pulmonary nodule. Suggest correlation with any prior imaging studies that could confirm longer-term stability. If none are available consider short-term followup noncontrast chest CT in approximately 3 months. Ubaldo Rodas MD Objective Remarks GENERAL: This is a well-nourished, well-developed patient, in no apparent distress. SKIN: Warm and dry. Dry feet. HEENT: Normocephalic. Pupils equal round and reactive. Nose without bleeding. NECK: No JVD. Supple. Tracheostomy in place. Trach site without any redness, edema of the following place. CARDIOVASCULAR: Regular rate and rhythm without murmurs, gallops, or rubs. RESPIRATORY: Clear to auscultation. Breath sounds equal bilaterally. No wheezes , rales, or rhonchi. GASTROINTESTINAL: Abdomen soft, non-tender, nondistended. Bowel Sounds normoactive x4. : Voiding without difficulty. MUSCULOSKELETAL: Extremities without clubbing, cyanosis, bilateral foot +1 edema. NEUROLOGICAL: Awake and alert. No focal neuro deficit. Moves all extremities. Procedures 04/30/16 - tracheostomy by Dr. Reyes 05/03/16 - EGD with PEG placement by Dr. Faith 06/09/16 - PEG removal 06/21/16- repeat tracheostomy by Dr. Cuellar Date of Removal: Jun 29, 2016 A/P Problem List: (1) Acute hypercapnic respiratory failure ICD Code: J96.02 Status: Acute (2) Staphylococcus aureus pneumonia ICD Code: J15.211 Status: Acute (3) Encephalopathy ICD Code: G93.40 Status: Acute (4) JACOB (obstructive sleep apnea) ICD Code: G47.33 Status: Acute (5) Diabetes mellitus type 2 in obese ICD Code: E11.9 Status: Acute (6) Morbid obesity with BMI of 50.0-59.9, adult ICD Code: E66.01 Status: Acute (7) Obesity hypoventilation syndrome ICD Code: E66.2 Status: Acute (8) Normocytic anemia ICD Code: D64.9 Status: Chronic Assessment and Plan Mr. Leger is a pleasant 50 year old male with a history of sleep apnea, morbid obesity, DM 2 who was admitted to the hospital on 03/24/2016 due to lightheadedness and dizziness. Initial work up indicated hypercarbia as well as hypoxemia. His O2 sat was 78% in the ED. CTA was negative for PE. He was started on BiPAP. However, due to unsatisfactory response, patient was intubated after neuromuscular paralysis using succinylcholine. Tracheostomy was done on 04/30/2016. Patient remained in the ICU until 05/07/2016. Patient went into acute respiratory failure again on 05/27/2016 and subsequently he was transferred back to ICU. Trach was exchanged on 05/27/2016 and he remained on mechanical ventilation. He was weaned off mechanical ventilation after tolerating CPAP trials. He was placed on T piece trial and tolerated that well. He was subsequently transferred to hospitalist service on 06/05/2016. Acute respiratory failure mixed hypercarbic and hypoxemic Probable obstructive sleep apnea Obesity hypoventilation syndrome - Status post Tracheostomy. - On T-piece, O2 sat stable, trach collar, keep O2 sat > 92%. - Pulmonary following. Dr. Perry (Pulmonary medicine) ordered bipap at night for JACOB. - Continue DuoNeb treatments. - As per patient, Dr. Perry plans to decannulate him soon and do sleep study so he is able to have CPAP/BiPAP at home upon discharge. Neuropathy - Continue Baclofen 5mg daily, Lyrica 75mg bid, with oxycodone 2.5mg PO q4h PRN per pain scale. Diabetes mellitus type 2 with neuropathy - HgbA1c 7.4 in . Goal glucose 140-180. - Continue Levemir 5 units QHS . - Accu-Cheks at goal - Repeat hemoglobin A1c 5.2. Patient may be able to benefit with metformin use and if blood sugars continued to be wnl, may wean off of Levemir use and be discharged home with metformin. Nutrition: status post PEG tube placed initially on 05/[address] Faith - PEG removed 06/09/[address] Munson. - Patient tolerating by mouth diet. Transaminitis: LFTs improved, abdominal pain resolved. - Liver US shows fatty liver. Small stones or tumefactive sludge adherent to one of the gallbladder arcos. Splenomegaly. - Avoid hepatotoxins. - Hepatitis panel negative. Wound on anterior neck 04/05 trach collar, stage III: Patient has a short and large neck. - Optifoam in place. - Apply bacitracin. - Wound cultures with normal sherine. - Wound care following, recommended silver nitrate for tracheostomy wound. Continue with dressing changes. Continue to monitor wound. Morbid Obesity with BMI 51.8 on admission: Encouraged weight loss. Current BMI 49.8 Left Shoulder Pain: with decreased ROM. - Xrays negative for fracture/dislocations. - Continue PT - Continue pain control with oxycodone 2.5mg po q4h prn Chronic normocytic anemia - Labs reviewed, values effectively unchanged since last draw. - May be secondary to chronic health issues; may consider vitamin B6/12 evaluation Bilat dry feet - A&D ointment qhs. Pneumonia with Staph Aureus, resolved. ID signed off. Toxic metabolic encephalopathy, resolved. Full code. DVT prophylaxis: Lovenox. Discussed with patient, nursing Discharge Planning Needs placement efforts, coordinating with case management. Mel Raymundo July 24, 2016 09:51
[2016-07-24] MEDS ORDERED: [UNRECOGNIZED DRUG - OTHER] TOPICAL SCH (21:00)
[2016-07-24] MEDS ORDERED: WHITE PETROLATUM TOPICAL SCH (21:00)
[2016-07-24] MEDS: PETROLATUM 30 GM TUBE TOPICAL SCH (21:00)
[2016-07-24] MEDS: INSULIN DETEMIR 100 UNITS/ML VIAL SQ SCH (21:07)
[2016-07-25] VITALS (7 sets, daily range): BP systolic 99–149; BP diastolic 56–94; PULSE 70–89; RESP 18–20; TEMP 97.8–98.9; O2SAT 93–98
[2016-07-25] MEDS: ARTIFICIAL TEARS OPTH SOLN 15 ML BTL EACH EYE SCH ×6 (02:00→22:00)
[2016-07-25] MEDS: ENOXAPARIN SODIUM 40 MG/0.4 ML SYRINGE SQ SCH ×2 (05:11→18:23)
[2016-07-25] MEDS: DOCUSATE SODIUM 100 MG/10 ML UDC PO SCH ×2 (09:00→21:00)
[2016-07-25] MEDS: SODIUM CHLORIDE 0.9% FLUSH 5 ML FLUSH IVF SCH (09:00)
[2016-07-25] MEDS: PANTOPRAZOLE SOD 40 MG DELAYED RELEASE TAB PO SCH (09:35)
[2016-07-25] MEDS: BACLOFEN 10 MG TAB PO SCH (09:35)
[2016-07-25] MEDS: PREGABALIN 75 MG CAP PO SCH ×2 (09:37→22:18)
[2016-07-25] MEDS: NYSTATIN 100,000 U/GM PWD 15 GM BTL TOPICAL SCH ×2 (09:38→21:00)
[2016-07-25] MEDS: BETAMETHASONE/CLOTRIMAZOLE CREAM 15 GM TOPICAL SCH ×2 (10:30→21:00)
--- NOTE | 2016-07-25 11:32 | HHI.PR ---
Subjective Remarks Follow-up visit respiratory failure, tracheostomy, DM 2. Patient seen and examined today, lying in bed comfortably in no apparent distress. Patient denies any new acute complaints such as any recent fever, chills, shortness of breath, cough, chest pain, abdominal pain, n/v or dysuria. Objective Vitals Vital Signs Date Time Temp Pulse Resp B/P Pulse Ox O2 Delivery O2 Flow Rate FiO2 07/25/16 08:39 96 T-piece 6.00 35 07/25/16 08:07 97.9 82 19 125/56 93 07/25/16 04:00 98.0 86 20 101/58 95 07/25/16 00:07 98.9 89 20 102/59 95 07/24/16 20:42 98.1 81 18 113/57 97 07/24/16 20:00 T-Piece 6.00 35 07/24/16 17:58 98 T-piece 6.00 35 07/24/16 16:00 98.9 91 16 107/63 98 07/24/16 12:00 97.9 86 16 100/56 94 07/24/16 12:00 18 I/O 07/24/16 07/24/16 07/24/16 07/25/16 07/25/16 07/25/16 07:00 15:00 23:00 07:00 15:00 23:00 Intake Total 600 ml Output Total 650 ml 775 ml 350 ml 350 ml Balance -650 ml -175 ml -350 ml -350 ml Intake Oral 600 ml Output Urine Total 650 ml 775 ml 350 ml 350 ml # Voids 3 # Bowel Movements 0 0 0 0 Imaging Last Impressions Chest X-Ray 06/30/16 0600 Signed Impressions: Service Date/Time: Thursday, June 30, 2016 06:07 - CONCLUSION: No significant change. Mild bilateral perihilar and basilar consolidation again noted. Ubaldo Ortiz MD Shoulder X-Ray 06/28/16 0000 Signed Impressions: Service Date/Time: June 15:12 - CONCLUSION: 1. Limited but negative examination of the shoulder. Kyaw Rojo MD Abdomen X-Ray 06/19/16 0000 Signed Impressions: Service Date/Time: Sunday, June 19, 2016 10:43 - CONCLUSION: Gastric tube tip does not cross the diaphragm and the side port is approximately 8 cm above the diaphragm. Chano Goodwin MD Lower Extremity Ultrasound 06/04/16 0000 Signed Impressions: Service Date/Time: Saturday, June 04, 2016 14:54 - CONCLUSION: 1. No DVT identified. Dc Barton MD Liver Ultrasound 05/09/16 0000 Signed Impressions: Service Date/Time: Monday, May 09, 2016 22:28 - CONCLUSION: 1. Enlarged, fatty liver. 2. Small stones or tumefactive sludge adherent to one of the gallbladder arcos. 3. Splenomegaly. 4. Pancreas is obscured by overlying bowel gas and patient's body habitus. Arthur Kennedy MD Chest CT 03/28/16 0836 Signed Impressions: Service Date/Time: Monday, March 28, 2016 09:57 - CONCLUSION: Development areas of air bronchograms and consolidation more prominent in the right and left posterior basilar segments of the lower lobes. ET tube above the chanelle. Bernard Hartman MD CT Angiography 03/24/16 1121 Signed Impressions: Service Date/Time: Thursday, March 24, 2016 12:47 - CONCLUSION: 1. There is respiratory motion artifact but no PE is identified through most of the segmental level pulmonary arteries. 2. Mildly enlarged main pulmonary artery may indicate pulmonary arterial hypertension. 3. 11 mm left lower lobe noncalcified pulmonary nodule. Suggest correlation with any prior imaging studies that could confirm longer-term stability. If none are available consider short-term followup noncontrast chest CT in approximately 3 months. Ubaldo Rodas MD Objective Remarks GENERAL: Morbidly obese, well-developed patient lying in bed with trach collar, in NAD. SKIN: Warm and dry. No rash. HEENT: Normocephalic. Atraumatic. Pupils equal and round. No scleral icterus. No injection or drainage. No nasal bleeding or discharge. Mucous membranes pink and moist. Neck supple. Trachea midline. CARDIOVASCULAR: Regular rate and rhythm. S1, S2 noted. No murmur appreciated. RESPIRATORY: No accessory muscle use. Airway noise noted due to trach collar humidified oxygen. Breath sounds equal bilaterally. GASTROINTESTINAL: Abdomen soft, non-tender, nondistended. Normoactive bowel sounds x 4. MUSCULOSKELETAL: No obvious deformities. Extremities without clubbing, cyanosis , or edema. Dry skin noted to bilateral feet and heels. NEUROLOGICAL: Awake and alert. No obvious cranial nerve deficits. Normal speech. PSYCHIATRIC: Appropriate mood and affect; insight and judgment normal. Procedures 04/30/16 - tracheostomy by Dr. Reyes 05/03/16 - EGD with PEG placement by Dr. Faith 06/09/16 - PEG removal 06/21/16- repeat tracheostomy by Dr. Cuellar Date of Removal: Jun 29, 2016 A/P Problem List: (1) Acute hypercapnic respiratory failure ICD Code: J96.02 Status: Acute (2) Staphylococcus aureus pneumonia ICD Code: J15.211 Status: Acute (3) Encephalopathy ICD Code: G93.40 Status: Acute (4) JACOB (obstructive sleep apnea) ICD Code: G47.33 Status: Acute (5) Diabetes mellitus type 2 in obese ICD Code: E11.9 Status: Acute (6) Morbid obesity with BMI of 50.0-59.9, adult ICD Code: E66.01 Status: Acute (7) Obesity hypoventilation syndrome ICD Code: E66.2 Status: Acute (8) Normocytic anemia ICD Code: D64.9 Status: Chronic Assessment and Plan Acute respiratory failure mixed hypercarbic and hypoxemic Probable obstructive sleep apnea Obesity hypoventilation syndrome - Status post Tracheostomy. - On 35% FiO2 T-piece, O2 sat stable, trach collar, keep O2 sat > 92%. - Pulmonary following. - Continue DuoNeb treatments. Pneumonia with Staph Aureus, resolved. ID signed off. 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 - Continue Baclofen 5mg daily, Lyrica 75mg bid, with oxycodone 2.5mg PO q4h PRN per pain scale. Diabetes mellitus type 2 with neuropathy - HgbA1c 7.4 in . Goal glucose 140-180. - Continue Levemir 5 units QHS . - Blood glucose well controlled - Continue Accu-checks BID. - Continue Lyrica and Baclofen for neuropathy. Nutrition: status post PEG tube placed initially on 05/[address] Faith - Tolerating PO intake. - PEG removed 06/09/[address] Munson. Transaminitis: LFTs improved, abdominal pain resolved. - Liver US shows fatty liver. Small stones or tumefactive sludge adherent to one of the gallbladder arcos. Splenomegaly. - Avoid hepatotoxins. - Hepatitis panel negative. 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 - Optifoam in place. - Apply bacitracin. - Wound cultures with normal sherine. - Wound care following, last saw patient 07/03. Morbid Obesity with BMI 51.8 on admission: now 49.4 kg. Encouraged weight loss. Left Shoulder Pain: with decreased ROM. - Xrays negative for fracture/dislocations. - Continue PT - Continue pain control with oxycodone 2.5mg po q4h prn Placement efforts in progress. Case management assisting. DVT prophylaxis: Lovenox. Full code. RUDY patient, RN and Gaby Newby July 25, 2016 11:32 Whitney Bejarano MD Aug 03, 2016 19:05
[2016-07-25] MEDS: SILVER NITR/POTASSIUM NITRATE APPLICATORS TOPICAL PRN (13:41)
--- NOTE | 2016-07-25 16:37 | HHI.PR ---
Subjective Remarks respiratory failure DOING WELL , NOW ON T TUBE Objective Vital Signs Date Time Temp Pulse Resp B/P Pulse Ox O2 Delivery O2 Flow Rate FiO2 07/25/16 14:00 93 T-Piece 38 07/25/16 12:07 97.9 72 18 99/62 94 07/25/16 08:39 96 T-piece 6.00 35 07/25/16 08:07 97.9 82 19 125/56 93 07/25/16 04:00 98.0 86 20 101/58 95 07/25/16 00:07 98.9 89 20 102/59 95 07/24/16 20:42 98.1 81 18 113/57 97 07/24/16 20:00 T-Piece 6.00 35 07/24/16 17:58 98 T-piece 6.00 35 I/O 07/24/16 07/24/16 07/24/16 07/25/16 07/25/16 07/25/16 07:00 15:00 23:00 07:00 15:00 23:00 Intake Total 600 ml Output Total 650 ml 775 ml 350 ml 350 ml Balance -650 ml -175 ml -350 ml -350 ml Intake Oral 600 ml Output Urine Total 650 ml 775 ml 350 ml 350 ml # Voids 3 # Bowel Movements 0 0 0 0 Procedures 04/30/16 - tracheostomy by Dr. Reyes 05/03/16 - EGD with PEG placement by Dr. Faith 06/09/16 - PEG removal 06/21/16- repeat tracheostomy by Dr. Cuellar Objective Remarks GENERAL: SKIN: Warm and dry.on vent support HEAD: Atraumatic. Normocephalic. EYES: Pupils equal and round. No scleral icterus. No injection or drainage. ENT: No nasal bleeding or discharge. Mucous membranes pink and moist. NECK: Trachea midline. No JVD. CARDIOVASCULAR: Regular rate and rhythm. RESPIRATORY: No accessory muscle use. Clear to auscultation. Breath sounds equal bilaterally. GASTROINTESTINAL: Abdomen soft, non-tender, nondistended. Hepatic and splenic margins not palpable. MUSCULOSKELETAL: Extremities without clubbing, cyanosis, or edema. No obvious deformities. NEUROLOGICAL: Awake and alert. No obvious cranial nerve deficits.right hemiplegia Assessment and Plan Assessment and Plan respiratory failure morbid obesity plan O2 NEEDED pulm toilet prognosis guarded Orlando ePrry MD July 25, 2016 16:37
[2016-07-25] MEDS: PETROLATUM 30 GM TUBE TOPICAL SCH (21:00)
[2016-07-25] MEDS: INSULIN DETEMIR 100 UNITS/ML VIAL SQ SCH (22:22)
[2016-07-26] VITALS (7 sets, daily range): BP systolic 101–110; BP diastolic 50–66; PULSE 82–90; RESP 16–22; TEMP 98–98.9; O2SAT 94–99
[2016-07-26] MEDS: ARTIFICIAL TEARS OPTH SOLN 15 ML BTL EACH EYE SCH ×6 (02:00→22:00)
[2016-07-26] MEDS: ENOXAPARIN SODIUM 40 MG/0.4 ML SYRINGE SQ SCH ×2 (06:00→18:24)
[2016-07-26] MEDS: PANTOPRAZOLE SOD 40 MG DELAYED RELEASE TAB PO SCH (08:59)
[2016-07-26] MEDS: DOCUSATE SODIUM 100 MG/10 ML UDC PO SCH ×2 (08:59→19:45)
[2016-07-26] MEDS: PREGABALIN 75 MG CAP PO SCH ×2 (09:00→22:39)
[2016-07-26] MEDS: BACLOFEN 10 MG TAB PO SCH (09:00)
[2016-07-26] MEDS: SODIUM CHLORIDE 0.9% FLUSH 5 ML FLUSH IVF SCH (09:00)
[2016-07-26] MEDS: BETAMETHASONE/CLOTRIMAZOLE CREAM 15 GM TOPICAL SCH ×2 (09:01→21:00)
[2016-07-26] MEDS: SILVER NITR/POTASSIUM NITRATE APPLICATORS TOPICAL PRN (09:01)
[2016-07-26] MEDS: NYSTATIN 100,000 U/GM PWD 15 GM BTL TOPICAL SCH ×2 (09:01→21:00)
--- NOTE | 2016-07-26 12:07 | HHI.PR ---
Subjective Remarks Follow-up visit respiratory failure, tracheostomy, DM 2. Patient seen and examined today, lying in bed comfortably in no apparent distress. No new acute complaints. Trach to t-piece. Minimal secretions. Denies any recent fever, chills, cough, shortness of breath, chest pain, abdominal pain, n/v or dysuria. Patient states feet are less dry with use of ordered cream. Objective Vitals Vital Signs Date Time Temp Pulse Resp B/P Pulse Ox O2 Delivery O2 Flow Rate FiO2 07/26/16 08:00 98.0 86 20 108/66 96 07/26/16 04:00 98.4 82 22 101/58 96 07/26/16 04:00 T-Piece 6.00 35 07/26/16 00:00 T-Piece 6.00 35 07/26/16 00:00 98.4 88 22 104/50 94 07/25/16 20:15 T-Piece 6.00 35 07/25/16 20:09 98.3 88 18 149/94 98 07/25/16 17:53 T-piece 6.00 35 07/25/16 16:08 97.8 70 18 110/60 96 07/25/16 14:00 93 T-Piece 38 07/25/16 12:07 97.9 72 18 99/62 94 I/O 07/25/16 07/25/16 07/25/16 07/26/16 07/26/16 07/26/16 07:00 15:00 23:00 07:00 15:00 23:00 Intake Total 420 ml 360 ml 120 ml Output Total 350 ml 800 ml 400 ml 120 ml Balance -350 ml -380 ml -40 ml 0 ml Intake Oral 420 ml 360 ml 120 ml IV Total 0 ml Output Urine Total 350 ml 800 ml 400 ml 120 ml # Bowel Movements 0 2 1 0 Imaging Last Impressions Chest X-Ray 06/30/16 0600 Signed Impressions: Service Date/Time: Thursday, June 30, 2016 06:07 - CONCLUSION: No significant change. Mild bilateral perihilar and basilar consolidation again noted. Ubaldo Ortiz MD Shoulder X-Ray 06/28/16 0000 Signed Impressions: Service Date/Time: June 15:12 - CONCLUSION: 1. Limited but negative examination of the shoulder. Kyaw Rojo MD Abdomen X-Ray 06/19/16 0000 Signed Impressions: Service Date/Time: Sunday, June 19, 2016 10:43 - CONCLUSION: Gastric tube tip does not cross the diaphragm and the side port is approximately 8 cm above the diaphragm. Chano Goodwin MD Lower Extremity Ultrasound 06/04/16 0000 Signed Impressions: Service Date/Time: Saturday, June 04, 2016 14:54 - CONCLUSION: 1. No DVT identified. Dc Barton MD Liver Ultrasound 05/09/16 0000 Signed Impressions: Service Date/Time: Monday, May 09, 2016 22:28 - CONCLUSION: 1. Enlarged, fatty liver. 2. Small stones or tumefactive sludge adherent to one of the gallbladder arcos. 3. Splenomegaly. 4. Pancreas is obscured by overlying bowel gas and patient's body habitus. Arthur Kennedy MD Chest CT 03/28/16 0836 Signed Impressions: Service Date/Time: Monday, March 28, 2016 09:57 - CONCLUSION: Development areas of air bronchograms and consolidation more prominent in the right and left posterior basilar segments of the lower lobes. ET tube above the chanelle. Bernard Hartman MD CT Angiography 03/24/16 1121 Signed Impressions: Service Date/Time: Thursday, March 24, 2016 12:47 - CONCLUSION: 1. There is respiratory motion artifact but no PE is identified through most of the segmental level pulmonary arteries. 2. Mildly enlarged main pulmonary artery may indicate pulmonary arterial hypertension. 3. 11 mm left lower lobe noncalcified pulmonary nodule. Suggest correlation with any prior imaging studies that could confirm longer-term stability. If none are available consider short-term followup noncontrast chest CT in approximately 3 months. Ubaldo Rodas MD Objective Remarks GENERAL: Morbidly obese, well-developed patient lying in bed with trach collar, in NAD. SKIN: Warm and dry. No rash. HEENT: Normocephalic. Atraumatic. Pupils equal and round. No scleral icterus. No injection or drainage. No nasal bleeding or discharge. Mucous membranes pink and moist. Neck supple. Trachea midline. CARDIOVASCULAR: Regular rate and rhythm. S1, S2 noted. No murmur appreciated. RESPIRATORY: No accessory muscle use. Airway noise noted due to trach collar humidified oxygen. Breath sounds equal bilaterally. GASTROINTESTINAL: Abdomen soft, non-tender, nondistended. Normoactive bowel sounds x 4. MUSCULOSKELETAL: No obvious deformities. Extremities without clubbing, cyanosis , or edema. Dry skin noted to bilateral feet and heels. NEUROLOGICAL: Awake and alert. No obvious cranial nerve deficits. Normal speech. PSYCHIATRIC: Appropriate mood and affect; insight and judgment normal. Procedures 04/30/16 - tracheostomy by Dr. Reyes 05/03/16 - EGD with PEG placement by Dr. Faith 06/09/16 - PEG removal 06/21/16- repeat tracheostomy by Dr. Cuellar Date of Removal: Jun 29, 2016 A/P Problem List: (1) Acute hypercapnic respiratory failure ICD Code: J96.02 Status: Acute (2) Staphylococcus aureus pneumonia ICD Code: J15.211 Status: Acute (3) Encephalopathy ICD Code: G93.40 Status: Acute (4) JACOB (obstructive sleep apnea) ICD Code: G47.33 Status: Acute (5) Diabetes mellitus type 2 in obese ICD Code: E11.9 Status: Acute (6) Morbid obesity with BMI of 50.0-59.9, adult ICD Code: E66.01 Status: Acute (7) Obesity hypoventilation syndrome ICD Code: E66.2 Status: Acute (8) Normocytic anemia ICD Code: D64.9 Status: Chronic Assessment and Plan Acute respiratory failure mixed hypercarbic and hypoxemic Probable obstructive sleep apnea Obesity hypoventilation syndrome - Status post Tracheostomy. - On 35% FiO2 T-piece, O2 sat stable, trach collar, keep O2 sat > 92%. - Pulmonary following. Possibly consider idea of tracheostomy capping, appreciate input. - Continue DuoNeb treatments. 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 - Continue Baclofen 5mg daily, Lyrica 75mg bid, with oxycodone 2.5mg PO q4h PRN per pain scale. Diabetes mellitus type 2 with neuropathy - HgbA1c 7.4 in . Goal glucose 140-180. - Continue Levemir 5 units QHS . - Blood glucose well controlled - Continue Accu-checks BID. - Continue Lyrica and Baclofen for neuropathy. Nutrition: status post PEG tube placed initially on 05/[address] Faith - Tolerating PO intake. - PEG removed 06/09/[address] Munson. Transaminitis: LFTs improved, abdominal pain resolved. - Liver US shows fatty liver. Small stones or tumefactive sludge adherent to one of the gallbladder arcos. Splenomegaly. - Avoid hepatotoxins. - Hepatitis panel negative. 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 - Optifoam in place. - Apply bacitracin. - Wound cultures with normal sherine. - Wound care following, last saw patient 07/03. Wound care orders reviewed and continued. Morbid Obesity with BMI 51.8 on admission: now 49.6 kg. Encouraged weight loss. Left Shoulder Pain: with decreased ROM. - Xrays negative for fracture/dislocations. - Continue PT - Continue pain control with oxycodone 2.5mg po q4h prn Placement efforts in progress. Case management assisting. DVT prophylaxis: Lovenox. Full code. DW patient, RN and Dr. Santa Discharge Planning Last CM note on 07/26/16: Rec'd order to arrange transport to rehab, this pt has no benefits for rehab snf's in this area have been given referral but no accepting facility as pt would be [facility]. Also provided referal to [facility] for [facility] she will evaluate pt to see if he meets criteria. However, [facility] will not open up until August and they already have 10 pts they are following. Gaby Gupta July 26, 2016 12:07
--- NOTE | 2016-07-26 16:09 | HHI.PR ---
Subjective Remarks respiratory failure DOING WELL , NOW ON T TUBE Objective Vital Signs Date Time Temp Pulse Resp B/P Pulse Ox O2 Delivery O2 Flow Rate FiO2 07/26/16 12:31 96 T-piece 6.00 35 07/26/16 09:00 96 T-Piece 35 07/26/16 08:00 98.0 86 20 108/66 96 07/26/16 04:00 98.4 82 22 101/58 96 07/26/16 04:00 T-Piece 6.00 35 07/26/16 00:00 T-Piece 6.00 35 07/26/16 00:00 98.4 88 22 104/50 94 07/25/16 20:15 T-Piece 6.00 35 07/25/16 20:09 98.3 88 18 149/94 98 07/25/16 17:53 T-piece 6.00 35 I/O 07/25/16 07/25/16 07/25/16 07/26/16 07/26/16 07/26/16 07:00 15:00 23:00 07:00 15:00 23:00 Intake Total 420 ml 360 ml 120 ml 0 ml Output Total 350 ml 800 ml 400 ml 120 ml Balance -350 ml -380 ml -40 ml 0 ml 0 ml Intake Oral 420 ml 360 ml 120 ml IV Total 0 ml 0 ml Output Urine Total 350 ml 800 ml 400 ml 120 ml # Bowel Movements 0 2 1 0 Procedures 04/30/16 - tracheostomy by Dr. Reyes 05/03/16 - EGD with PEG placement by Dr. Faith 06/09/16 - PEG removal 06/21/16- repeat tracheostomy by Dr. Cuellar Objective Remarks GENERAL: SKIN: Warm and dry.on vent support HEAD: Atraumatic. Normocephalic. EYES: Pupils equal and round. No scleral icterus. No injection or drainage. ENT: No nasal bleeding or discharge. Mucous membranes pink and moist. NECK: Trachea midline. No JVD. CARDIOVASCULAR: Regular rate and rhythm. RESPIRATORY: No accessory muscle use. Clear to auscultation. Breath sounds equal bilaterally. GASTROINTESTINAL: Abdomen soft, non-tender, nondistended. Hepatic and splenic margins not palpable. MUSCULOSKELETAL: Extremities without clubbing, cyanosis, or edema. No obvious deformities. NEUROLOGICAL: Awake and alert. No obvious cranial nerve deficits.right hemiplegia Assessment and Plan Assessment and Plan respiratory failure morbid obesity plan O2 NEEDED pulm toilet prognosis guarded Orlando Perry MD July 26, 2016 16:09
[2016-07-26] MEDS: PETROLATUM 30 GM TUBE TOPICAL SCH (21:00)
[2016-07-26] MEDS: INSULIN DETEMIR 100 UNITS/ML VIAL SQ SCH (22:37)
[2016-07-27] VITALS (7 sets, daily range): BP systolic 100–114; BP diastolic 52–64; PULSE 75–89; RESP 18–21; TEMP 98–98.5; O2SAT 95–98
[2016-07-27] MEDS: ARTIFICIAL TEARS OPTH SOLN 15 ML BTL EACH EYE SCH ×6 (02:00→21:58)
[2016-07-27] MEDS: ENOXAPARIN SODIUM 40 MG/0.4 ML SYRINGE SQ SCH ×2 (06:16→17:30)
[2016-07-27] MEDS: BACLOFEN 10 MG TAB PO SCH (08:20)
[2016-07-27] MEDS: PANTOPRAZOLE SOD 40 MG DELAYED RELEASE TAB PO SCH (08:20)
[2016-07-27] MEDS: DOCUSATE SODIUM 100 MG/10 ML UDC PO SCH ×2 (08:20→21:00)
[2016-07-27] MEDS: SODIUM CHLORIDE 0.9% FLUSH 5 ML FLUSH IVF SCH (08:20)
[2016-07-27] MEDS: PREGABALIN 75 MG CAP PO SCH ×2 (08:20→21:57)
[2016-07-27] MEDS: NYSTATIN 100,000 U/GM PWD 15 GM BTL TOPICAL SCH ×2 (08:25→21:00)
[2016-07-27] MEDS: BETAMETHASONE/CLOTRIMAZOLE CREAM 15 GM TOPICAL SCH ×2 (08:25→21:00)
--- NOTE | 2016-07-27 09:19 | HHI.PR ---
Subjective Remarks respiratory failure DOING WELL , NOW ON T TUBE Objective Vital Signs Date Time Temp Pulse Resp B/P Pulse Ox O2 Delivery O2 Flow Rate FiO2 07/27/16 07:56 T-Piece 6.00 40 07/27/16 07:16 18 07/27/16 04:00 98.0 75 18 114/60 96 07/27/16 00:00 98.3 78 21 104/52 97 07/26/16 21:36 T-piece 35 07/26/16 20:57 98.9 83 16 103/57 96 07/26/16 20:00 T-Piece 6.00 40 07/26/16 16:00 98.0 87 20 110/64 98 07/26/16 12:31 96 T-piece 6.00 35 07/26/16 12:00 98.2 90 20 103/55 99 I/O 07/26/16 07/26/16 07/26/16 07/27/16 07/27/16 07/27/16 07:00 15:00 23:00 07:00 15:00 23:00 Intake Total 120 ml 720 ml 480 ml 240 ml Output Total 120 ml 600 ml 650 ml 600 ml Balance 0 ml 120 ml -170 ml -360 ml Intake Oral 120 ml 720 ml 480 ml 240 ml IV Total 0 ml Output Urine Total 120 ml 600 ml 650 ml 600 ml # Bowel Movements 0 1 0 0 Procedures 04/30/16 - tracheostomy by Dr. Reyes 05/03/16 - EGD with PEG placement by Dr. Faith 06/09/16 - PEG removal 06/21/16- repeat tracheostomy by Dr. Cuellar Objective Remarks GENERAL: SKIN: Warm and dry.on vent support HEAD: Atraumatic. Normocephalic. EYES: Pupils equal and round. No scleral icterus. No injection or drainage. ENT: No nasal bleeding or discharge. Mucous membranes pink and moist. NECK: Trachea midline. No JVD. CARDIOVASCULAR: Regular rate and rhythm. RESPIRATORY: No accessory muscle use. Clear to auscultation. Breath sounds equal bilaterally. GASTROINTESTINAL: Abdomen soft, non-tender, nondistended. Hepatic and splenic margins not palpable. MUSCULOSKELETAL: Extremities without clubbing, cyanosis, or edema. No obvious deformities. NEUROLOGICAL: Awake and alert. No obvious cranial nerve deficits.right hemiplegia Assessment and Plan Assessment and Plan respiratory failure morbid obesity plan O2 NEEDED pulm toilet prognosis guarded Orlando Perry MD July 27, 2016 09:19
--- NOTE | 2016-07-27 10:56 | HHI.PR ---
Subjective Remarks Follow-up visit respiratory failure, tracheostomy, DM 2. Patient seen and examined today, lying in bed comfortably in no apparent distress. No new acute complaints. Trach to t-piece. No secretions. Denies pain and discomfort. Denies SOB/ dyspnea. Denies chest pain, palpitations, headaches, dizziness. Denies fevers, chills, n/v/d. Denies hematuria, dysuria. Objective Vitals Vital Signs Date Time Temp Pulse Resp B/P Pulse Ox O2 Delivery O2 Flow Rate FiO2 07/27/16 09:33 97 T-piece 40.00 07/27/16 08:00 98.3 82 20 101/57 95 07/27/16 07:56 T-Piece 6.00 40 07/27/16 07:16 18 07/27/16 04:00 98.0 75 18 114/60 96 07/27/16 00:00 98.3 78 21 104/52 97 07/26/16 21:36 T-piece 35 07/26/16 20:57 98.9 83 16 103/57 96 07/26/16 20:00 T-Piece 6.00 40 07/26/16 16:00 98.0 87 20 110/64 98 07/26/16 12:31 96 T-piece 6.00 35 07/26/16 12:00 98.2 90 20 103/55 99 I/O 07/26/16 07/26/16 07/26/16 07/27/16 07/27/16 07/27/16 07:00 15:00 23:00 07:00 15:00 23:00 Intake Total 120 ml 720 ml 480 ml 240 ml Output Total 120 ml 600 ml 650 ml 600 ml Balance 0 ml 120 ml -170 ml -360 ml Intake Oral 120 ml 720 ml 480 ml 240 ml IV Total 0 ml Output Urine Total 120 ml 600 ml 650 ml 600 ml # Bowel Movements 0 1 0 0 Imaging Last Impressions Chest X-Ray 06/30/16 0600 Signed Impressions: Service Date/Time: Thursday, June 30, 2016 06:07 - CONCLUSION: No significant change. Mild bilateral perihilar and basilar consolidation again noted. Ubaldo Ortiz MD Shoulder X-Ray 06/28/16 0000 Signed Impressions: Service Date/Time: June 15:12 - CONCLUSION: 1. Limited but negative examination of the shoulder. Kyaw Rojo MD Abdomen X-Ray 06/19/16 0000 Signed Impressions: Service Date/Time: Sunday, June 19, 2016 10:43 - CONCLUSION: Gastric tube tip does not cross the diaphragm and the side port is approximately 8 cm above the diaphragm. Chano Goodwin MD Lower Extremity Ultrasound 06/04/16 0000 Signed Impressions: Service Date/Time: Saturday, June 04, 2016 14:54 - CONCLUSION: 1. No DVT identified. Dc Barton MD Liver Ultrasound 05/09/16 0000 Signed Impressions: Service Date/Time: Monday, May 09, 2016 22:28 - CONCLUSION: 1. Enlarged, fatty liver. 2. Small stones or tumefactive sludge adherent to one of the gallbladder arcos. 3. Splenomegaly. 4. Pancreas is obscured by overlying bowel gas and patient's body habitus. Arthur Kennedy MD Chest CT 03/28/16 0836 Signed Impressions: Service Date/Time: Monday, March 28, 2016 09:57 - CONCLUSION: Development areas of air bronchograms and consolidation more prominent in the right and left posterior basilar segments of the lower lobes. ET tube above the chanelle. Bernard Hartman MD CT Angiography 03/24/16 1121 Signed Impressions: Service Date/Time: Thursday, March 24, 2016 12:47 - CONCLUSION: 1. There is respiratory motion artifact but no PE is identified through most of the segmental level pulmonary arteries. 2. Mildly enlarged main pulmonary artery may indicate pulmonary arterial hypertension. 3. 11 mm left lower lobe noncalcified pulmonary nodule. Suggest correlation with any prior imaging studies that could confirm longer-term stability. If none are available consider short-term followup noncontrast chest CT in approximately 3 months. Ubaldo Rodas MD Objective Remarks GENERAL: This is a well-nourished, well-developed patient, in no apparent distress. SKIN: Warm and dry. Dry feet. HEENT: Normocephalic. Pupils equal round and reactive. Nose without bleeding. NECK: No JVD. Supple. Tracheostomy in place. Trach site without any redness, edema of the following place. CARDIOVASCULAR: Regular rate and rhythm without murmurs, gallops, or rubs. RESPIRATORY: Clear to auscultation. No wheezes, rales, or rhonchi. GASTROINTESTINAL: Abdomen soft, non-tender, nondistended. Bowel Sounds normoactive x4. : Voiding without difficulty. MUSCULOSKELETAL: Extremities without clubbing, cyanosis, bilateral foot +1 edema. NEUROLOGICAL: Awake and alert. No focal neuro deficit. Moves all extremities. Procedures 04/30/16 - tracheostomy by Dr. Reyes 05/03/16 - EGD with PEG placement by Dr. Faith 06/09/16 - PEG removal 06/21/16- repeat tracheostomy by Dr. Cuellar Date of Removal: Jun 29, 2016 A/P Problem List: (1) Acute hypercapnic respiratory failure ICD Code: J96.02 Status: Acute (2) Staphylococcus aureus pneumonia ICD Code: J15.211 Status: Acute (3) Encephalopathy ICD Code: G93.40 Status: Acute (4) JACOB (obstructive sleep apnea) ICD Code: G47.33 Status: Acute (5) Diabetes mellitus type 2 in obese ICD Code: E11.9 Status: Acute (6) Morbid obesity with BMI of 50.0-59.9, adult ICD Code: E66.01 Status: Acute (7) Obesity hypoventilation syndrome ICD Code: E66.2 Status: Acute (8) Normocytic anemia ICD Code: D64.9 Status: Chronic Assessment and Plan Mr. Leger is a pleasant 50 year old male with a history of sleep apnea, morbid obesity, DM 2 who was admitted to the hospital on 03/24/2016 due to lightheadedness and dizziness. Initial work up indicated hypercarbia as well as hypoxemia. His O2 sat was 78% in the ED. CTA was negative for PE. He was started on BiPAP. However, due to unsatisfactory response, patient was intubated after neuromuscular paralysis using succinylcholine. Tracheostomy was done on 04/30/2016. Patient remained in the ICU until 05/07/2016. Patient went into acute respiratory failure again on 05/27/2016 and subsequently he was transferred back to ICU. Trach was exchanged on 05/27/2016 and he remained on mechanical ventilation. He was weaned off mechanical ventilation after tolerating CPAP trials. He was placed on T piece trial and tolerated that well. He was subsequently transferred to hospitalist service on 06/05/2016. Acute respiratory failure mixed hypercarbic and hypoxemic Probable obstructive sleep apnea Obesity hypoventilation syndrome - Status post Tracheostomy. - On T-piece, O2 sat stable, trach collar, keep O2 sat > 92%. - Pulmonary following. Dr. Perry (Pulmonary medicine) ordered bipap at night for JACOB. - Continue DuoNeb treatments. - Spoke with Dr. Perry. Agreed to change patient to cuffless fenestrated tracheostomy. Wean off tpiece. Possibly try Passy Mur. Neuropathy - Continue Baclofen 5mg daily, Lyrica 75mg bid, with oxycodone 2.5mg PO q4h PRN per pain scale. Diabetes mellitus type 2 with neuropathy - HgbA1c 7.4 in . Goal glucose 140-180. - Continue Levemir 5 units QHS . - Accu-Cheks at goal - Repeat hemoglobin A1c 5.2. - On metformin at home. Plan to switch back to metformin, dc Levemir. Pt. not on any insulin at home. Nutrition: status post PEG tube placed initially on 05/[address] Faith - PEG removed 06/09/[address] Munson. - Patient tolerating by mouth diet. Transaminitis: LFTs improved, abdominal pain resolved. - Liver US shows fatty liver. Small stones or tumefactive sludge adherent to one of the gallbladder arcos. Splenomegaly. - Avoid hepatotoxins. - Hepatitis panel negative. 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 - Optifoam in place. - Apply bacitracin. - Wound cultures with normal sherine. - Wound care following, recommended silver nitrate for tracheostomy wound. Continue with dressing changes. Continue to monitor wound. Morbid Obesity with BMI 51.8 on admission: Encouraged weight loss. Current BMI 49.4 Left Shoulder Pain: with decreased ROM. - Xrays negative for fracture/dislocations. - Continue PT - Continue pain control with oxycodone 2.5mg po q4h prn Chronic normocytic anemia - Labs reviewed, values effectively unchanged since last draw. - May be secondary to chronic health issues; may consider vitamin B6/12 evaluation Bilat dry feet - A&D ointment qhs. Pneumonia with Staph Aureus, resolved. ID signed off. Toxic metabolic encephalopathy, resolved. Full code. DVT prophylaxis: Lovenox. Discussed with patient, nursing, Dr. Santa Discharge Planning Plan to DC home with brother. Motivated to go home. Wean off tracheostomy. Plan to DC home when weaned off. Mel Raymundo July 27, 2016 10:56 Mel Raymundo July 27, 2016 10:56
[2016-07-27] MEDS: PETROLATUM 30 GM TUBE TOPICAL SCH (21:00)
[2016-07-27] MEDS: IBUPROFEN 400 MG TAB PO SCH (21:58)
[2016-07-27] MEDS: INSULIN DETEMIR 100 UNITS/ML VIAL SQ SCH (22:10)
[2016-07-28] VITALS (7 sets, daily range): BP systolic 98–115; BP diastolic 55–65; PULSE 67–85; RESP 16–20; TEMP 96.9–98.3; O2SAT 94–97
[2016-07-28] MEDS: ARTIFICIAL TEARS OPTH SOLN 15 ML BTL EACH EYE SCH ×6 (02:00→21:52)
[2016-07-28] MEDS: IBUPROFEN 400 MG TAB PO SCH ×3 (06:27→21:52)
[2016-07-28] MEDS: ENOXAPARIN SODIUM 40 MG/0.4 ML SYRINGE SQ SCH ×2 (06:27→17:38)
[2016-07-28] MEDS: SODIUM CHLORIDE 0.9% FLUSH 5 ML FLUSH IVF SCH (09:00)
[2016-07-28] MEDS: DOCUSATE SODIUM 100 MG/10 ML UDC PO SCH ×2 (10:22→20:45)
[2016-07-28] MEDS: BACLOFEN 10 MG TAB PO SCH (10:22)
[2016-07-28] MEDS: PREGABALIN 75 MG CAP PO SCH ×2 (10:22→20:43)
[2016-07-28] MEDS: PANTOPRAZOLE SOD 40 MG DELAYED RELEASE TAB PO SCH (10:22)
[2016-07-28] MEDS: BETAMETHASONE/CLOTRIMAZOLE CREAM 15 GM TOPICAL SCH ×2 (10:26→20:43)
[2016-07-28] MEDS: NYSTATIN 100,000 U/GM PWD 15 GM BTL TOPICAL SCH ×2 (10:28→20:41)
--- NOTE | 2016-07-28 12:04 | HHI.PR ---
Subjective Remarks Follow-up visit respiratory failure, tracheostomy, DM 2. Patient seen and examined today. Lying in bed. Reports they have not changed his tracheostomy tube to a fenestrated tube. No new acute complaints. Denies pain and discomfort. Denies SOB/ dyspnea. Denies chest pain, palpitations, headaches, dizziness. Denies fevers, chills, n/v/d. Denies hematuria, dysuria. Objective Vitals Vital Signs Date Time Temp Pulse Resp B/P Pulse Ox O2 Delivery O2 Flow Rate FiO2 07/28/16 11:00 95 T-piece 28 07/28/16 08:00 97.7 69 16 98/60 94 07/28/16 04:00 96.9 67 18 102/55 94 07/28/16 04:00 T-Piece 6.00 07/28/16 00:00 97.9 82 18 102/56 95 07/28/16 00:00 T-Piece 6.00 07/27/16 20:30 T-Piece 6.00 07/27/16 20:00 98.5 89 20 100/55 95 07/27/16 16:00 98.1 88 20 107/64 97 I/O 07/27/16 07/27/16 07/27/16 07/28/16 07/28/16 07/28/16 07:00 15:00 23:00 07:00 15:00 23:00 Intake Total 240 ml 480 ml Output Total 600 ml 550 ml 300 ml 200 ml Balance -360 ml -70 ml -300 ml -200 ml Intake Oral 240 ml 480 ml Output Urine Total 600 ml 550 ml 300 ml 200 ml # Bowel Movements 0 0 0 Imaging Last Impressions Chest X-Ray 06/30/16 0600 Signed Impressions: Service Date/Time: Thursday, June 30, 2016 06:07 - CONCLUSION: No significant change. Mild bilateral perihilar and basilar consolidation again noted. Ubaldo Ortiz MD Shoulder X-Ray 06/28/16 0000 Signed Impressions: Service Date/Time: June 15:12 - CONCLUSION: 1. Limited but negative examination of the shoulder. Kyaw Rojo MD Abdomen X-Ray 06/19/16 0000 Signed Impressions: Service Date/Time: Sunday, June 19, 2016 10:43 - CONCLUSION: Gastric tube tip does not cross the diaphragm and the side port is approximately 8 cm above the diaphragm. Chano Goodwin MD Lower Extremity Ultrasound 06/04/16 0000 Signed Impressions: Service Date/Time: Saturday, June 04, 2016 14:54 - CONCLUSION: 1. No DVT identified. Dc Barton MD Liver Ultrasound 05/09/16 0000 Signed Impressions: Service Date/Time: Monday, May 09, 2016 22:28 - CONCLUSION: 1. Enlarged, fatty liver. 2. Small stones or tumefactive sludge adherent to one of the gallbladder arcos. 3. Splenomegaly. 4. Pancreas is obscured by overlying bowel gas and patient's body habitus. Arthur Kennedy MD Chest CT 03/28/16 0836 Signed Impressions: Service Date/Time: Monday, March 28, 2016 09:57 - CONCLUSION: Development areas of air bronchograms and consolidation more prominent in the right and left posterior basilar segments of the lower lobes. ET tube above the chanelle. Bernard Hartman MD CT Angiography 03/24/16 1121 Signed Impressions: Service Date/Time: Thursday, March 24, 2016 12:47 - CONCLUSION: 1. There is respiratory motion artifact but no PE is identified through most of the segmental level pulmonary arteries. 2. Mildly enlarged main pulmonary artery may indicate pulmonary arterial hypertension. 3. 11 mm left lower lobe noncalcified pulmonary nodule. Suggest correlation with any prior imaging studies that could confirm longer-term stability. If none are available consider short-term followup noncontrast chest CT in approximately 3 months. Ubaldo Rodas MD Objective Remarks GENERAL: This is a well-nourished, well-developed patient, in no apparent distress. SKIN: Warm and dry. Dry feet. HEENT: Normocephalic. Pupils equal round and reactive. Nose without bleeding. NECK: No JVD. Supple. Tracheostomy in place. Trach site without any redness, edema of the following place. Opteform in place. CARDIOVASCULAR: Regular rate and rhythm without murmurs, gallops, or rubs. RESPIRATORY: Clear to auscultation. No wheezes, rales, or rhonchi. GASTROINTESTINAL: Abdomen soft, non-tender, nondistended. Bowel Sounds normoactive x4. : Voiding without difficulty. MUSCULOSKELETAL: Extremities without clubbing, cyanosis, bilateral foot +1 edema. NEUROLOGICAL: Awake and alert. No focal neuro deficit. Moves all extremities. Procedures 04/30/16 - tracheostomy by Dr. Reyes 05/03/16 - EGD with PEG placement by Dr. Faith 06/09/16 - PEG removal 06/21/16- repeat tracheostomy by Dr. Cuellar Date of Removal: Jun 29, 2016 A/P Problem List: (1) Acute hypercapnic respiratory failure ICD Code: J96.02 Status: Acute (2) Staphylococcus aureus pneumonia ICD Code: J15.211 Status: Acute (3) Encephalopathy ICD Code: G93.40 Status: Acute (4) JACOB (obstructive sleep apnea) ICD Code: G47.33 Status: Acute (5) Diabetes mellitus type 2 in obese ICD Code: E11.9 Status: Acute (6) Morbid obesity with BMI of 50.0-59.9, adult ICD Code: E66.01 Status: Acute (7) Obesity hypoventilation syndrome ICD Code: E66.2 Status: Acute (8) Normocytic anemia ICD Code: D64.9 Status: Chronic Assessment and Plan Mr. Leger is a pleasant 50 year old male with a history of sleep apnea, morbid obesity, DM 2 who was admitted to the hospital on 03/24/2016 due to lightheadedness and dizziness. Initial work up indicated hypercarbia as well as hypoxemia. His O2 sat was 78% in the ED. CTA was negative for PE. He was started on BiPAP. However, due to unsatisfactory response, patient was intubated after neuromuscular paralysis using succinylcholine. Tracheostomy was done on 04/30/2016. Patient remained in the ICU until 05/07/2016. Patient went into acute respiratory failure again on 05/27/2016 and subsequently he was transferred back to ICU. Trach was exchanged on 05/27/2016 and he remained on mechanical ventilation. He was weaned off mechanical ventilation after tolerating CPAP trials. He was placed on T piece trial and tolerated that well. He was subsequently transferred to hospitalist service on 06/05/2016. Acute respiratory failure mixed hypercarbic and hypoxemic Probable obstructive sleep apnea Obesity hypoventilation syndrome - Status post Tracheostomy. - On T-piece, O2 sat stable, trach collar, keep O2 sat > 92%. - Pulmonary following. Dr. Perry (Pulmonary medicine) ordered bipap at night for JACOB. - Continue DuoNeb treatments. - Spoke with Dr. Perry. Agreed to change patient to cuffless fenestrated tracheostomy. Wean off tpiece. Possibly try Passy Mur. - Spoke with respiratory therapist, uncomfortable changing trach to fenestrated over the weekend since patient had previously failed decannulation. Plan for fenestrated trach change on Saturday. Discussed with nursing to order #6 cuffed less fenestrated tracheostomy tube to be at the bedside and ready. We 'll coordinate change with Dr. Perry. Neuropathy - Continue Baclofen 5mg daily, Lyrica 75mg bid, with oxycodone 2.5mg PO q4h PRN per pain scale. Diabetes mellitus type 2 with neuropathy - HgbA1c 7.4 in . Goal glucose 140-180. - Continue Levemir 5 units QHS . - Accu-Cheks at goal - Repeat hemoglobin A1c 5.2. - On metformin at home. Plan to switch back to metformin, dc Levemir. Pt. not on any insulin at home. Nutrition: status post PEG tube placed initially on 05/[address] Faith - PEG removed 06/09/[address] Munson. - Patient tolerating by mouth diet. Transaminitis: LFTs improved, abdominal pain resolved. - Liver US shows fatty liver. Small stones or tumefactive sludge adherent to one of the gallbladder arcos. Splenomegaly. - Avoid hepatotoxins. - Hepatitis panel negative. 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 - Optifoam in place. - Apply bacitracin. - Wound cultures with normal sherine. - Wound care following, recommended silver nitrate for tracheostomy wound. Continue with dressing changes. Continue to monitor wound. Morbid Obesity with BMI 51.8 on admission: Encouraged weight loss. Current BMI 49.4 -->48.7 Left Shoulder Pain: with decreased ROM. - Xrays negative for fracture/dislocations. - Continue PT - Continue pain control with oxycodone 2.5mg po q4h prn Chronic normocytic anemia - Labs reviewed, values effectively unchanged since last draw. - May be secondary to chronic health issues; may consider vitamin B6/12 evaluation Pneumonia with Staph Aureus, resolved. ID signed off. Toxic metabolic encephalopathy, resolved. Full code. DVT prophylaxis: Lovenox. Discussed with patient, nursing, Dr. Santa Discharge Planning Plan to DC home with brother. Motivated to go home. Wean off tracheostomy. Plan to DC home when weaned off. Mel Raymundo July 28, 2016 12:04
--- NOTE | 2016-07-28 16:39 | HHI.PR ---
Subjective Remarks 50 YO morbidly obese male s/p RF, Trach On trach collar No distress Awake, follows commands no new complaint Objective Vital Signs Vital Signs Date Time Temp Pulse Resp B/P Pulse Ox O2 Delivery O2 Flow Rate FiO2 07/28/16 12:00 97.9 78 16 102/58 97 07/28/16 11:00 95 T-piece 28 07/28/16 08:00 97.7 69 16 98/60 94 07/28/16 04:00 96.9 67 18 102/55 94 07/28/16 04:00 T-Piece 6.00 28 07/28/16 00:00 97.9 82 18 102/56 95 07/28/16 00:00 T-Piece 6.00 07/27/16 20:30 T-Piece 6.00 07/27/16 20:00 98.5 89 20 100/55 95 I/O 07/27/16 07/27/16 07/27/16 07/28/16 07/28/16 07/28/16 07:00 15:00 23:00 07:00 15:00 23:00 Intake Total 240 ml 480 ml 960 ml Output Total 600 ml 550 ml 300 ml 200 ml 350 ml Balance -360 ml -70 ml -300 ml -200 ml 610 ml Intake Oral 240 ml 480 ml 960 ml Output Urine Total 600 ml 550 ml 300 ml 200 ml 350 ml # Bowel Movements 0 0 0 1 Objective Remarks GENERAL: Morbidly obese male trach collar SKIN: Warm and dry. HEAD: Normocephalic. EYES: No scleral icterus. No injection or drainage. NECK: Supple, trachea midline. No JVD or lymphadenopathy. CARDIOVASCULAR: Regular rate and rhythm without murmurs, gallops, or rubs. RESPIRATORY: Breath sounds equal bilaterally. No accessory muscle use. GASTROINTESTINAL: Abdomen soft, non-tender, nondistended. MUSCULOSKELETAL: No cyanosis, or edema. BACK: Nontender without obvious deformity. No CVA tenderness. A/P Assessment and Plan S/P trach ARDS-resolved Pneumonia JACOB PLAN: Trach collar Aerosol nebs Supplement 02 to keep sat >90% Musa Key MD July 28, 2016 16:39
[2016-07-28] MEDS: PETROLATUM 30 GM TUBE TOPICAL SCH (20:42)
[2016-07-28] MEDS: INSULIN DETEMIR 100 UNITS/ML VIAL SQ SCH (20:45)
[2016-07-29] VITALS (7 sets, daily range): BP systolic 101–120; BP diastolic 56–67; PULSE 80–94; RESP 18–20; TEMP 97.8–98.4; O2SAT 92–100
[2016-07-29] MEDS: ARTIFICIAL TEARS OPTH SOLN 15 ML BTL EACH EYE SCH ×6 (01:23→21:23)
[2016-07-29] MEDS: ENOXAPARIN SODIUM 40 MG/0.4 ML SYRINGE SQ SCH ×2 (05:51→18:08)
[2016-07-29] MEDS: IBUPROFEN 400 MG TAB PO SCH ×3 (05:51→21:21)
[2016-07-29] MEDS: NYSTATIN 100,000 U/GM PWD 15 GM BTL TOPICAL SCH ×2 (09:00→21:23)
[2016-07-29] MEDS: SODIUM CHLORIDE 0.9% FLUSH 5 ML FLUSH IVF SCH (09:00)
[2016-07-29] MEDS: BETAMETHASONE/CLOTRIMAZOLE CREAM 15 GM TOPICAL SCH ×2 (09:00→21:22)
[2016-07-29] MEDS: DOCUSATE SODIUM 100 MG/10 ML UDC PO SCH ×2 (10:00→21:00)
[2016-07-29] MEDS: PANTOPRAZOLE SOD 40 MG DELAYED RELEASE TAB PO SCH (10:00)
[2016-07-29] MEDS: PREGABALIN 75 MG CAP PO SCH ×2 (10:00→21:21)
[2016-07-29] MEDS: BACLOFEN 10 MG TAB PO SCH (10:00)
--- NOTE | 2016-07-29 11:48 | HHI.PR ---
Subjective Remarks No acute events overnight. Afebrile, vital signs stable. Patient with no complaints this morning. Denies shortness of breath. Is eating and drinking well. Denies nausea/vomiting/diarrhea. Does complain of back and foot pain that is somewhat helped with medications. Patient expresses that he would like to have his tracheostomy capped. Objective Vitals Vital Signs Date Time Temp Pulse Resp B/P Pulse Ox O2 Delivery O2 Flow Rate FiO2 07/29/16 09:30 98 T-piece 28 07/29/16 08:30 97.8 85 18 108/63 92 07/29/16 04:00 98.3 80 20 106/60 95 07/29/16 04:00 T-Piece 6.00 35 07/29/16 00:00 T-Piece 6.00 35 07/29/16 00:00 98.3 84 20 115/56 100 07/29/16 00:00 98.3 85 20 115/58 100 07/28/16 20:00 T-Piece 6.00 35 07/28/16 20:00 98.3 85 20 115/58 97 07/28/16 16:00 97.9 74 18 113/65 97 07/28/16 12:00 97.9 78 16 102/58 97 I/O 07/28/16 07/28/16 07/28/16 07/29/16 07/29/16 07/29/16 07:00 15:00 23:00 07:00 15:00 23:00 Intake Total 960 ml 240 ml Output Total 200 ml 350 ml 450 ml 675 ml Balance -200 ml 610 ml -210 ml -675 ml Intake Oral 960 ml 240 ml Output Urine Total 200 ml 350 ml 450 ml 675 ml # Bowel Movements 1 Objective Remarks GENERAL: This is a well-nourished, well-developed patient, in no apparent distress. SKIN: Warm and dry. Dry feet. HEENT: Normocephalic. Pupils equal round and reactive. Nose without bleeding. NECK: No JVD. Supple. Tracheostomy in place. Trach site without any redness, edema of the following place. Opteform in place. CARDIOVASCULAR: Regular rate and rhythm without murmurs, gallops, or rubs. RESPIRATORY: Clear to auscultation. No wheezes, rales, or rhonchi. GASTROINTESTINAL: Abdomen soft, non-tender, nondistended. Bowel Sounds normoactive x4. : Voiding without difficulty. MUSCULOSKELETAL: Extremities without clubbing, cyanosis, bilateral foot +1 edema. NEUROLOGICAL: Awake and alert. No focal neuro deficit. Moves all extremities. Procedures 04/30/16 - tracheostomy by Dr. Reyes 05/03/16 - EGD with PEG placement by Dr. Faith 06/09/16 - PEG removal 06/21/16- repeat tracheostomy by Dr. Cuellar Date of Removal: Jun 29, 2016 A/P Problem List: (1) Acute hypercapnic respiratory failure ICD Code: J96.02 Status: Acute (2) Staphylococcus aureus pneumonia ICD Code: J15.211 Status: Acute (3) Encephalopathy ICD Code: G93.40 Status: Acute (4) JACOB (obstructive sleep apnea) ICD Code: G47.33 Status: Acute (5) Diabetes mellitus type 2 in obese ICD Code: E11.9 Status: Acute (6) Morbid obesity with BMI of 50.0-59.9, adult ICD Code: E66.01 Status: Acute (7) Obesity hypoventilation syndrome ICD Code: E66.2 Status: Acute (8) Normocytic anemia ICD Code: D64.9 Status: Chronic Assessment and Plan Mr. Leger is a pleasant 50 year old male with a history of sleep apnea, morbid obesity, DM 2 who was admitted to the hospital on 03/24/2016 due to lightheadedness and dizziness. Initial work up indicated hypercarbia as well as hypoxemia. His O2 sat was 78% in the ED. CTA was negative for PE. He was started on BiPAP. However, due to unsatisfactory response, patient was intubated after neuromuscular paralysis using succinylcholine. Tracheostomy was done on 04/30/2016. Patient remained in the ICU until 05/07/2016. Patient went into acute respiratory failure again on 05/27/2016 and subsequently he was transferred back to ICU. Trach was exchanged on 05/27/2016 and he remained on mechanical ventilation. He was weaned off mechanical ventilation after tolerating CPAP trials. He was placed on T piece trial and tolerated that well. He was subsequently transferred to hospitalist service on 06/05/2016. Acute respiratory failure mixed hypercarbic and hypoxemic Probable obstructive sleep apnea Obesity hypoventilation syndrome - Status post Tracheostomy. - On T-piece, O2 sat stable, trach collar, keep O2 sat > 92%. - Pulmonary following. Dr. Perry (Pulmonary medicine) ordered bipap at night for JACOB. - Continue DuoNeb treatments. - Spoke with Dr. Perry. Agreed to change patient to cuffless fenestrated tracheostomy. Wean off tpiece. Possibly try Passy Mur. - Spoke with respiratory therapist, uncomfortable changing trach to fenestrated over the weekend since patient had previously failed decannulation. Plan for fenestrated trach change on Saturday. Discussed with nursing to order #6 cuffed less fenestrated tracheostomy tube to be at the bedside and ready. We 'll coordinate change with Dr. Perry. Neuropathy - Continue Baclofen 5mg daily, Lyrica 75mg bid, with oxycodone 2.5mg PO q4h PRN per pain scale. Diabetes mellitus type 2 with neuropathy - HgbA1c 7.4 in . Goal glucose 140-180. - Continue Levemir 5 units QHS . - Accu-Cheks at goal - Repeat hemoglobin A1c 5.2. - On metformin at home. Plan to switch back to metformin, dc Levemir. Pt. not on any insulin at home. Nutrition: status post PEG tube placed initially on 05/[address] Faith - PEG removed 06/09/[address] Munson. - Patient tolerating by mouth diet. Transaminitis: LFTs improved, abdominal pain resolved. - Liver US shows fatty liver. Small stones or tumefactive sludge adherent to one of the gallbladder arcos. Splenomegaly. - Avoid hepatotoxins. - Hepatitis panel negative. 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 - Optifoam in place. - Apply bacitracin. - Wound cultures with normal sherine. - Wound care following, recommended silver nitrate for tracheostomy wound. Continue with dressing changes. Continue to monitor wound. Morbid Obesity with BMI 51.8 on admission: Encouraged weight loss. Current BMI 49.4 -->48.7 Left Shoulder Pain: with decreased ROM. - Xrays negative for fracture/dislocations. - Continue PT - Continue pain control with oxycodone 2.5mg po q4h prn Chronic normocytic anemia - Labs reviewed, values effectively unchanged since last draw. - May be secondary to chronic health issues; may consider vitamin B6/12 evaluation Pneumonia with Staph Aureus, resolved. ID signed off. Toxic metabolic encephalopathy, resolved. Full code. DVT prophylaxis: Lovenox. Discharge Planning Plan to DC home with brother. Motivated to go home. Wean off tracheostomy. Plan to DC home when weaned off. Mila Nash MD R3 July 29, 2016 11:48
--- NOTE | 2016-07-29 19:59 | HHI.PR ---
Subjective Remarks 50 YO morbidly obese male s/p RF, Trach On trach collar No distress Awake, follows commands Objective Vital Signs Vital Signs Date Time Temp Pulse Resp B/P Pulse Ox O2 Delivery O2 Flow Rate FiO2 07/29/16 16:40 97.9 94 18 101/56 94 07/29/16 16:30 20 07/29/16 14:20 22 07/29/16 12:45 98.4 88 18 113/67 95 07/29/16 11:00 20 07/29/16 09:30 98 T-piece 28 07/29/16 09:15 92 T-Piece 6.00 07/29/16 08:30 97.8 85 18 108/63 92 07/29/16 04:00 98.3 80 20 106/60 95 07/29/16 04:00 T-Piece 6.00 35 07/29/16 00:00 T-Piece 6.00 35 07/29/16 00:00 98.3 84 20 115/56 100 07/29/16 00:00 98.3 85 20 115/58 100 07/28/16 20:00 T-Piece 6.00 35 07/28/16 20:00 98.3 85 20 115/58 97 I/O 07/28/16 07/28/16 07/28/16 07/29/16 07/29/16 07/29/16 07:00 15:00 23:00 07:00 15:00 23:00 Intake Total 960 ml 240 ml 582 ml Output Total 200 ml 350 ml 450 ml 675 ml 400 ml Balance -200 ml 610 ml -210 ml -675 ml 182 ml Intake Oral 960 ml 240 ml 582 ml Output Urine Total 200 ml 350 ml 450 ml 675 ml 400 ml # Voids 2 # Bowel Movements 1 0 Objective Remarks GENERAL: Morbidly obese male trach collar SKIN: Warm and dry. HEAD: Normocephalic. EYES: No scleral icterus. No injection or drainage. NECK: Supple, trachea midline. No JVD or lymphadenopathy. CARDIOVASCULAR: Regular rate and rhythm without murmurs, gallops, or rubs. RESPIRATORY: Breath sounds equal bilaterally. No accessory muscle use. GASTROINTESTINAL: Abdomen soft, non-tender, nondistended. MUSCULOSKELETAL: No cyanosis, or edema. BACK: Nontender without obvious deformity. No CVA tenderness. A/P Assessment and Plan S/P trach ARDS-resolved Pneumonia JACOB PLAN: Trach collar Aerosol nebs Supplement 02 to keep sat >90% Musa Key MD July 29, 2016 19:59
[2016-07-29] MEDS: INSULIN DETEMIR 100 UNITS/ML VIAL SQ SCH (21:21)
[2016-07-30] VITALS (8 sets, daily range): BP systolic 106–116; BP diastolic 56–68; PULSE 70–83; RESP 18–20; TEMP 97.7–98.2; O2SAT 93–98
[2016-07-30] MEDS: ARTIFICIAL TEARS OPTH SOLN 15 ML BTL EACH EYE SCH ×6 (01:27→21:04)
[2016-07-30] MEDS: IBUPROFEN 400 MG TAB PO SCH ×2 (06:30→13:34)
[2016-07-30] MEDS: ENOXAPARIN SODIUM 40 MG/0.4 ML SYRINGE SQ SCH ×2 (06:30→17:42)
[2016-07-30] MEDS: SODIUM CHLORIDE 0.9% FLUSH 5 ML FLUSH IVF SCH (07:35)
[2016-07-30] MEDS: BETAMETHASONE/CLOTRIMAZOLE CREAM 15 GM TOPICAL SCH ×2 (08:49→21:04)
[2016-07-30] MEDS: DOCUSATE SODIUM 100 MG/10 ML UDC PO SCH ×2 (08:49→21:00)
[2016-07-30] MEDS: NYSTATIN 100,000 U/GM PWD 15 GM BTL TOPICAL SCH ×2 (08:50→21:00)
[2016-07-30] MEDS: BACLOFEN 10 MG TAB PO SCH (08:50)
[2016-07-30] MEDS: PREGABALIN 75 MG CAP PO SCH ×2 (08:50→21:02)
[2016-07-30] MEDS: PANTOPRAZOLE SOD 40 MG DELAYED RELEASE TAB PO SCH (08:50)
--- NOTE | 2016-07-30 14:07 | HHI.PR ---
Subjective Remarks Follow-up visit respiratory failure, tracheostomy, DM 2. Patient seen and examined today. initially seen participating in physical therapy. Returned afterwards and pt was sitting in chair at bedside. Pt (and RN) reported tracheostomy tube has been changed to a "size 6". Pt indicated discharge plans include him going to livewith his brother in [place]. No new acute complaints. Denied pain and discomfort, cough, SOB/ dyspnea, fevers, chills, n/v/d. No new issues/concerns raised by pt. Objective Vitals Vital Signs Date Time Temp Pulse Resp B/P Pulse Ox O2 Delivery O2 Flow Rate FiO2 07/30/16 12:00 98.0 80 18 106/60 97 07/30/16 08:40 94 T-piece 28 07/30/16 08:40 T-Piece 6.00 35 07/30/16 08:00 98.0 70 18 107/57 96 07/30/16 05:44 97.7 76 20 114/62 95 07/30/16 00:49 98.2 83 20 112/58 93 07/30/16 00:00 T-Piece 6.00 35 07/29/16 20:55 98.1 84 20 120/57 95 07/29/16 20:00 T-Piece 6.00 35 07/29/16 16:40 97.9 94 18 101/56 94 07/29/16 16:30 20 07/29/16 14:20 22 I/O 07/29/16 07/29/16 07/29/16 07/30/16 07/30/16 07/30/16 06:59 14:59 22:59 06:59 14:59 22:59 Intake Total 582 ml Output Total 675 ml 600 ml 300 ml Balance -675 ml -18 ml -300 ml Intake Oral 582 ml Output Urine Total 675 ml 600 ml 300 ml # Voids 2 # Bowel Movements 0 Imaging Last Impressions Chest X-Ray 06/30/16 0600 Signed Impressions: Service Date/Time: Thursday, June 30, 2016 06:07 - CONCLUSION: No significant change. Mild bilateral perihilar and basilar consolidation again noted. Ubaldo Ortiz MD Shoulder X-Ray 06/28/16 0000 Signed Impressions: Service Date/Time: June 15:12 - CONCLUSION: 1. Limited but negative examination of the shoulder. Kyaw Rojo MD Abdomen X-Ray 06/19/16 0000 Signed Impressions: Service Date/Time: Sunday, June 19, 2016 10:43 - CONCLUSION: Gastric tube tip does not cross the diaphragm and the side port is approximately 8 cm above the diaphragm. Chano Goodwin MD Lower Extremity Ultrasound 06/04/16 0000 Signed Impressions: Service Date/Time: Saturday, June 04, 2016 14:54 - CONCLUSION: 1. No DVT identified. Dc Barton MD Liver Ultrasound 05/09/16 0000 Signed Impressions: Service Date/Time: Monday, May 09, 2016 22:28 - CONCLUSION: 1. Enlarged, fatty liver. 2. Small stones or tumefactive sludge adherent to one of the gallbladder arcos. 3. Splenomegaly. 4. Pancreas is obscured by overlying bowel gas and patient's body habitus. Arthur Kennedy MD Chest CT 03/28/16 0836 Signed Impressions: Service Date/Time: Monday, March 28, 2016 09:57 - CONCLUSION: Development areas of air bronchograms and consolidation more prominent in the right and left posterior basilar segments of the lower lobes. ET tube above the chanelle. Bernard Hartman MD CT Angiography 03/24/16 1121 Signed Impressions: Service Date/Time: Thursday, March 24, 2016 12:47 - CONCLUSION: 1. There is respiratory motion artifact but no PE is identified through most of the segmental level pulmonary arteries. 2. Mildly enlarged main pulmonary artery may indicate pulmonary arterial hypertension. 3. 11 mm left lower lobe noncalcified pulmonary nodule. Suggest correlation with any prior imaging studies that could confirm longer-term stability. If none are available consider short-term followup noncontrast chest CT in approximately 3 months. Ubaldo Rodas MD Objective Remarks GENERAL: Pt sitting in bedside chair, awake and alert, not in acute distress. Speech impacted due to tracheostomy. SKIN: Warm and dry. Skin wound at site of T- Piece. Bandage covering wound site. HEAD: Normocephalic. EYES: No scleral icterus. No injection or drainage. NECK: Supple, trachea midline. Trach present. CARDIOVASCULAR: Regular rate and rhythm without murmurs, gallops, or rubs. RESPIRATORY: Breath sounds equal bilaterally. No accessory muscle use. GASTROINTESTINAL: Abdomen soft, large, non-tender, nondistended. Bowel sounds present all quadrants. MUSCULOSKELETAL: No cyanosis, or edema. Pt has been observed participating in physical therapy. PSYCHIATRIC: Pt alert and oriented, without over signs of depression or anxiety. Pleasant and cooperative. Procedures 04/30/16 - tracheostomy by Dr. Reyes 05/03/16 - EGD with PEG placement by Dr. Faith 06/09/16 - PEG removal 06/21/16- repeat tracheostomy by Dr. Cuellar Urinary Catheter: No Date of Removal: Jun 29, 2016 A/P Problem List: (1) Acute hypercapnic respiratory failure ICD Code: J96.02 Status: Acute (2) Staphylococcus aureus pneumonia ICD Code: J15.211 Status: Acute (3) Encephalopathy ICD Code: G93.40 Status: Acute (4) JACOB (obstructive sleep apnea) ICD Code: G47.33 Status: Acute (5) Diabetes mellitus type 2 in obese ICD Code: E11.9 Status: Acute (6) Morbid obesity with BMI of 50.0-59.9, adult ICD Code: E66.01 Status: Acute (7) Obesity hypoventilation syndrome ICD Code: E66.2 Status: Acute (8) Normocytic anemia ICD Code: D64.9 Status: Chronic Assessment and Plan Mr. Leger is a pleasant 50 year old male with a history of sleep apnea, morbid obesity, DM 2 who was admitted to the hospital on 03/24/2016 due to lightheadedness and dizziness. Initial work up indicated hypercarbia as well as hypoxemia. His O2 sat was 78% in the ED. CTA was negative for PE. He was started on BiPAP. However, due to unsatisfactory response, patient was intubated after neuromuscular paralysis using succinylcholine. Tracheostomy was done on 04/30/2016. Patient remained in the ICU until 05/07/2016. Patient went into acute respiratory failure again on 05/27/2016 and subsequently he was transferred back to ICU. Trach was exchanged on 05/27/2016 and he remained on mechanical ventilation. He was weaned off mechanical ventilation after tolerating CPAP trials. He was placed on T piece trial and tolerated that well. He was subsequently transferred to hospitalist service on 06/05/2016. Acute respiratory failure mixed hypercarbic and hypoxemic Probable obstructive sleep apnea Obesity hypoventilation syndrome - Status post Tracheostomy. - On 35% FiO2 T-piece, O2 sat stable, trach collar, keep O2 sat > 92%. - Pulmonary following. - Continue DuoNeb treatments. -Dr. Perry (Pulmonary medicine) ordered bipap at night for JACOB, please refer to his note for more information. -Tracheostomy weaning ongoing, tube changed this morning. Pt and RN report no difficulties with breathing. Pneumonia with Staph Aureus, resolved. ID signed off. 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 - Continue Baclofen 5mg daily, Lyrica 75mg bid, with oxycodone 2.5mg PO q4h PRN per pain scale. Diabetes mellitus type 2 with neuropathy - HgbA1c 7.4 in . Goal glucose 140-180. - Continue Levemir 5 units QHS . - Blood glucose well controlled - Continue Accu-checks BID. - Continue Lyrica and Baclofen for neuropathy. -Finger sticks now to be done every 6 hours (07/19/16). Nutrition: status post PEG tube placed initially on 05/[address] Faith - 06/09/16: pt complains of irritation/drainage/discomfort at PEG insertion site, tolerating PO intake. - PEG removed 06/09/[address] Munson. - Beneprotein discontinued as it had been ordered while/when pt had a PEG tube. Transaminitis: LFTs improved, abdominal pain resolved. - Liver US shows fatty liver. Small stones or tumefactive sludge adherent to one of the gallbladder arcos. Splenomegaly. - Avoid hepatotoxins. - Hepatitis panel negative. 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 - Optifoam in place. - Apply bacitracin. - Wound cultures with normal sherine. - Wound care following, last saw patient 07/03. -Wound care contacted hospitalist team on 07/17/16 requesting d/c of Silvadene and initiation of Silver nitrate to address wound. Orders placed. Morbid Obesity with BMI 51.8 on admission: Encouraged weight loss. As of BMI is 48.4. BMI is increased to 50.0 on 07/22/16 Left Shoulder Pain: with decreased ROM. - Xrays negative for fracture/dislocations. - Continue PT - Continue pain control with oxycodone 2.5mg po q4h prn Chronic normocytic anemia: -Labs personally reviewed, values effectively unchanged since last draw. -May be secondary to secondary to chronic health issues; may consider vitamin B6/12 evaluation Full code. DVT prophylaxis: Lovenox. Case discussed with pt, RN, and Dr. Nowak. Discharge Planning No significant change in management. Continue placement efforts. Nilton Riley Jr. July 30, 2016 14:07
--- NOTE | 2016-07-30 17:23 | HHI.PR ---
Subjective Remarks 50 YO morbidly obese male s/p RF, Trach On trach collar No distress Awake, follows commands No new complaint Objective Vital Signs Vital Signs Date Time Temp Pulse Resp B/P Pulse Ox O2 Delivery O2 Flow Rate FiO2 07/30/16 16:00 98.1 73 18 106/68 97 07/30/16 12:00 98.0 80 18 106/60 97 07/30/16 08:40 94 T-piece 28 07/30/16 08:40 T-Piece 6.00 35 07/30/16 08:00 98.0 70 18 107/57 96 07/30/16 05:44 97.7 76 20 114/62 95 07/30/16 00:49 98.2 83 20 112/58 93 07/30/16 00:00 T-Piece 6.00 35 07/29/16 20:55 98.1 84 20 120/57 95 07/29/16 20:00 T-Piece 6.00 35 I/O 07/29/16 07/29/16 07/29/16 07/30/16 07/30/16 07/30/16 06:59 14:59 22:59 06:59 14:59 22:59 Intake Total 582 ml 480 ml Output Total 675 ml 600 ml 300 ml 600 ml Balance -675 ml -18 ml -300 ml -120 ml Intake Oral 582 ml 480 ml IV Total 0 ml Output Urine Total 675 ml 600 ml 300 ml 600 ml # Voids 2 # Bowel Movements 0 1 Objective Remarks GENERAL: Morbidly obese male trach collar SKIN: Warm and dry. HEAD: Normocephalic. EYES: No scleral icterus. No injection or drainage. NECK: Supple, trachea midline. No JVD or lymphadenopathy. CARDIOVASCULAR: Regular rate and rhythm without murmurs, gallops, or rubs. RESPIRATORY: Breath sounds equal bilaterally. No accessory muscle use. GASTROINTESTINAL: Abdomen soft, non-tender, nondistended. MUSCULOSKELETAL: No cyanosis, or edema. BACK: Nontender without obvious deformity. No CVA tenderness. A/P Assessment and Plan S/P trach ARDS-resolved Pneumonia JACOB PLAN: Trach collar Aerosol nebs Supplement 02 to keep sat >90% Musa Key MD July 30, 2016 17:23
[2016-07-30] MEDS: INSULIN DETEMIR 100 UNITS/ML VIAL SQ SCH (21:08)
[2016-07-31] VITALS: BP 125/63; PULSE 82; RESP 18; TEMP 98.1; O2SAT 95
[2016-07-31] MEDS: ARTIFICIAL TEARS OPTH SOLN 15 ML BTL EACH EYE SCH ×6 (01:30→22:00)
[2016-07-31 04:00] VITALS: BP 114/61; PULSE 82; RESP 18; TEMP 98; O2SAT 95
[2016-07-31] MEDS: ENOXAPARIN SODIUM 40 MG/0.4 ML SYRINGE SQ SCH ×2 (06:12→16:59)
[2016-07-31 08:00] VITALS: BP 101/55; PULSE 76; RESP 16; TEMP 98.2; O2SAT 94
[2016-07-31] MEDS: BETAMETHASONE/CLOTRIMAZOLE CREAM 15 GM TOPICAL SCH ×2 (09:00→21:00)
[2016-07-31] MEDS: SODIUM CHLORIDE 0.9% FLUSH 5 ML FLUSH IVF SCH (09:00)
[2016-07-31] MEDS: NYSTATIN 100,000 U/GM PWD 15 GM BTL TOPICAL SCH ×2 (09:00→21:00)
[2016-07-31] MEDS: DOCUSATE SODIUM 100 MG/10 ML UDC PO SCH ×2 (09:00→21:00)
[2016-07-31] MEDS: PREGABALIN 75 MG CAP PO SCH ×2 (09:09→22:14)
[2016-07-31] MEDS: BACLOFEN 10 MG TAB PO SCH (09:09)
[2016-07-31] MEDS: PANTOPRAZOLE SOD 40 MG DELAYED RELEASE TAB PO SCH (09:10)
--- NOTE | 2016-07-31 10:40 | HHI.PR ---
Subjective Remarks Follow-up visit respiratory failure, tracheostomy, DM 2. Patient seen and examined today with pt was sitting on bed facing doorway. Pt denied any discomfort or breathing issues related to his recently changed tracheostomy tube. Pt did endorse lower back pain, rated 5/10. At present, he was declining pain medication. Denied pain and discomfort, cough, SOB/ dyspnea, fevers, chills, n/v/d as well as bloody urine or stool. No new issues/concerns raised by pt. Objective Vitals Vital Signs Date Time Temp Pulse Resp B/P Pulse Ox O2 Delivery O2 Flow Rate FiO2 07/31/16 08:00 98.2 76 16 101/55 94 07/31/16 04:00 T-Piece 6.00 28 07/31/16 04:00 98.0 82 18 114/61 95 07/31/16 00:00 T-Piece 6.00 28 07/31/16 00:00 98.1 82 18 125/63 95 07/30/16 21:06 98 T-piece 5.00 28 07/30/16 20:00 98.2 78 18 116/56 94 07/30/16 20:00 T-Piece 6.00 28 07/30/16 16:00 T-Piece 6.00 35 07/30/16 16:00 98.1 73 18 106/68 97 07/30/16 12:00 98.0 80 18 106/60 97 I/O 07/30/16 07/30/16 07/30/16 07/31/16 07/31/16 07/31/16 07:00 15:00 23:00 07:00 15:00 23:00 Intake Total 480 ml Output Total 300 ml 600 ml 200 ml 200 ml Balance -300 ml -120 ml -200 ml -200 ml Intake Oral 480 ml IV Total 0 ml Output Urine Total 300 ml 600 ml 200 ml 200 ml # Bowel Movements 1 0 Imaging Last Impressions Chest X-Ray 06/30/16 0600 Signed Impressions: Service Date/Time: Thursday, June 30, 2016 06:07 - CONCLUSION: No significant change. Mild bilateral perihilar and basilar consolidation again noted. Ubaldo Ortiz MD Shoulder X-Ray 06/28/16 0000 Signed Impressions: Service Date/Time: June 15:12 - CONCLUSION: 1. Limited but negative examination of the shoulder. Kyaw Rojo MD Abdomen X-Ray 06/19/16 0000 Signed Impressions: Service Date/Time: Sunday, June 19, 2016 10:43 - CONCLUSION: Gastric tube tip does not cross the diaphragm and the side port is approximately 8 cm above the diaphragm. Chano Goodwin MD Lower Extremity Ultrasound 06/04/16 0000 Signed Impressions: Service Date/Time: Saturday, June 04, 2016 14:54 - CONCLUSION: 1. No DVT identified. Dc Barton MD Liver Ultrasound 05/09/16 0000 Signed Impressions: Service Date/Time: Monday, May 09, 2016 22:28 - CONCLUSION: 1. Enlarged, fatty liver. 2. Small stones or tumefactive sludge adherent to one of the gallbladder arcos. 3. Splenomegaly. 4. Pancreas is obscured by overlying bowel gas and patient's body habitus. Arthur Kennedy MD Chest CT 03/28/16 0836 Signed Impressions: Service Date/Time: Monday, March 28, 2016 09:57 - CONCLUSION: Development areas of air bronchograms and consolidation more prominent in the right and left posterior basilar segments of the lower lobes. ET tube above the chanelle. Bernard Hartman MD CT Angiography 03/24/16 1121 Signed Impressions: Service Date/Time: Thursday, March 24, 2016 12:47 - CONCLUSION: 1. There is respiratory motion artifact but no PE is identified through most of the segmental level pulmonary arteries. 2. Mildly enlarged main pulmonary artery may indicate pulmonary arterial hypertension. 3. 11 mm left lower lobe noncalcified pulmonary nodule. Suggest correlation with any prior imaging studies that could confirm longer-term stability. If none are available consider short-term followup noncontrast chest CT in approximately 3 months. Ubaldo Rodas MD Objective Remarks GENERAL: Pt sitting up in bed, awake and alert, not in acute distress. Speech impacted due to tracheostomy. SKIN: Warm and dry. Skin wound at site of T- Piece. Bandage covering wound site. HEAD: Normocephalic. EYES: No scleral icterus. No injection or drainage. NECK: Supple, trachea midline. Trach present. CARDIOVASCULAR: Regular rate and rhythm without murmurs, gallops, or rubs. RESPIRATORY: Breath sounds equal bilaterally. No accessory muscle use. GASTROINTESTINAL: Abdomen soft, large, non-tender, nondistended. Bowel sounds present all quadrants. MUSCULOSKELETAL: No cyanosis, or edema. PSYCHIATRIC: Pt alert and oriented, without over signs of depression or anxiety. Pleasant and cooperative. Procedures 04/30/16 - tracheostomy by Dr. Reyes 05/03/16 - EGD with PEG placement by Dr. Faith 06/09/16 - PEG removal 06/21/16- repeat tracheostomy by Dr. Cuellar Medications and IVs Current Medications Medications (Trade) Dose Ordered Sig/Chapis Route Start Time Stop Time Status Last Admin (NS Flush) 2 ml UNSCH PRN IVF 03/24/16 11:30 05/23/16 05:55 (Lotrisone Cream) 1 applic Q12HR TOPICAL 03/26/16 09:00 07/31/16 09:00 (Lovenox Inj) 40 mg Q12H SQ 03/26/16 18:00 07/31/16 06:12 (Colace Liq) 100 mg Q12HR PO 03/29/16 09:00 07/29/16 10:00 (Tylenol 650 Mg/ 20 ml Liq) 650 mg Q6H PRN PO 03/30/16 15:45 06/23/16 21:37 (Glycerin Adult Supp) 2 gm BID PRN RECTAL 04/01/16 09:00 04/25/16 10:22 (NS Flush) DAILY IVF 04/03/16 09:00 07/31/16 09:00 (NS Flush) UNSCH PRN IVF 04/02/16 09:30 04/22/16 07:42 (Tears Naturale Opth Soln) 1 drop Q4H EACH EYE 04/21/16 18:00 07/29/16 18:00 (Mycostatin Powder) 1 applic Q12HR TOPICAL 04/27/16 11:00 07/31/16 09:00 (Zofran Inj) 4 mg Q6H PRN IV 05/05/16 06:45 (Phazyme Chew) 125 mg DAILY PRN PO 05/11/16 15:00 05/12/16 15:00 (Pill Splitter) 1 ea UNSCH PRN OTHER 05/24/16 10:45 (Protonix) 40 mg DAILY PO 05/26/16 09:00 07/31/16 09:10 (D50w (Vial) Inj) 25 ml UNSCH PRN IV PUSH 05/31/16 22:00 (Levemir Inj) 5 units HS SQ 06/06/16 21:00 07/30/16 21:08 (Lioresal) 5 mg DAILY PO 06/22/16 09:00 07/31/16 09:09 (Lyrica) 75 mg Q12HR PO 06/22/16 09:00 07/31/16 09:09 (Roxicodone) 2.5 mg Q4H PRN PO 06/24/16 17:00 07/30/16 21:02 (Miralax) 17 gm BID PRN PO 07/07/16 11:00 (Silver Nitrate Applicators) 1 appl Q7D PRN TOPICAL 07/17/16 14:45 07/26/16 09:01 Urinary Catheter: No Date of Removal: Jun 29, 2016 Vascular Central Line Catheter: No A/P Problem List: (1) Acute hypercapnic respiratory failure ICD Code: J96.02 Status: Acute (2) Staphylococcus aureus pneumonia ICD Code: J15.211 Status: Acute (3) Encephalopathy ICD Code: G93.40 Status: Acute (4) JACOB (obstructive sleep apnea) ICD Code: G47.33 Status: Acute (5) Diabetes mellitus type 2 in obese ICD Code: E11.9 Status: Acute (6) Morbid obesity with BMI of 50.0-59.9, adult ICD Code: E66.01 Status: Acute (7) Obesity hypoventilation syndrome ICD Code: E66.2 Status: Acute (8) Normocytic anemia ICD Code: D64.9 Status: Chronic Assessment and Plan Mr. Leger is a pleasant 50 year old male with a history of sleep apnea, morbid obesity, DM 2 who was admitted to the hospital on 03/24/2016 due to lightheadedness and dizziness. Initial work up indicated hypercarbia as well as hypoxemia. His O2 sat was 78% in the ED. CTA was negative for PE. He was started on BiPAP. However, due to unsatisfactory response, patient was intubated after neuromuscular paralysis using succinylcholine. Tracheostomy was done on 04/30/2016. Patient remained in the ICU until 05/07/2016. Patient went into acute respiratory failure again on 05/27/2016 and subsequently he was transferred back to ICU. Trach was exchanged on 05/27/2016 and he remained on mechanical ventilation. He was weaned off mechanical ventilation after tolerating CPAP trials. He was placed on T piece trial and tolerated that well. He was subsequently transferred to hospitalist service on 06/05/2016. Acute respiratory failure mixed hypercarbic and hypoxemic Probable obstructive sleep apnea Obesity hypoventilation syndrome - Status post Tracheostomy. - On 35% FiO2 T-piece, O2 sat stable, trach collar, keep O2 sat > 92%. - Pulmonary following. - Continue DuoNeb treatments. -Dr. Perry (Pulmonary medicine) ordered bipap at night for JACOB, please refer to his note for more information. -Tracheostomy weaning ongoing, tube changed 07/30/16. Pt and RN report no difficulties with breathing. Pneumonia with Staph Aureus, resolved. ID signed off. 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 - Continue Baclofen 5mg daily, Lyrica 75mg bid, with oxycodone 2.5mg PO q4h PRN per pain scale. Diabetes mellitus type 2 with neuropathy - HgbA1c 7.4 in . Goal glucose 140-180. - Continue Levemir 5 units QHS . - Blood glucose well controlled - Continue Accu-checks BID. - Continue Lyrica and Baclofen for neuropathy. -Finger sticks now to be done every 6 hours (07/19/16). Nutrition: status post PEG tube placed initially on 05/03 by LIBBY Faith - 06/09/16: pt complains of irritation/drainage/discomfort at PEG insertion site, tolerating PO intake. - PEG removed 06/09/16 by LIBBY Munson. - Beneprotein discontinued as it had been ordered while/when pt had a PEG tube. Transaminitis: LFTs improved, abdominal pain resolved. - Liver US shows fatty liver. Small stones or tumefactive sludge adherent to one of the gallbladder arcos. Splenomegaly. - Avoid hepatotoxins. - Hepatitis panel negative. 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 - Optifoam in place. - Apply bacitracin. - Wound cultures with normal sherine. - Wound care following, last saw patient 07/03. -Wound care contacted hospitalist team on 07/17/16 requesting d/c of Silvadene and initiation of Silver nitrate to address wound. Orders placed. Morbid Obesity with BMI 51.8 on admission: Encouraged weight loss. As of BMI is 48.4. BMI is increased to 50.0 on 07/22/16 Left Shoulder Pain: with decreased ROM. - Xrays negative for fracture/dislocations. - Continue PT - Continue pain control with oxycodone 2.5mg po q4h prn Chronic normocytic anemia: -Labs personally reviewed, values effectively unchanged since last draw. -May be secondary to secondary to chronic health issues; may consider vitamin B6/12 evaluation Full code. DVT prophylaxis: Lovenox. Case discussed with pt and Dr. Bejarano. Discharge Planning No significant change in management. Continue placement efforts. Nilton Riley Jr. July 31, 2016 10:40
[2016-07-31 16:00] VITALS: BP 108/56; PULSE 91; RESP 16; TEMP 98.6; O2SAT 95
--- NOTE | 2016-07-31 19:15 | HHI.PR ---
Subjective Remarks 50 YO morbidly obese male s/p RF, Trach On trach collar No distress Awake, follows commands No new complaint No fever Objective Vital Signs Vital Signs Date Time Temp Pulse Resp B/P Pulse Ox O2 Delivery O2 Flow Rate FiO2 07/31/16 16:00 T-Piece 6.00 28 07/31/16 16:00 98.6 91 16 108/56 95 07/31/16 12:00 T-Piece 6.00 28 07/31/16 08:00 98.2 76 16 101/55 94 07/31/16 07:00 T-Piece 6.00 07/31/16 04:00 T-Piece 6.00 28 07/31/16 04:00 98.0 82 18 114/61 95 07/31/16 00:00 T-Piece 6.00 28 07/31/16 00:00 98.1 82 18 125/63 95 07/30/16 21:06 98 T-piece 5.00 28 07/30/16 20:00 98.2 78 18 116/56 94 07/30/16 20:00 T-Piece 6.00 28 I/O 07/30/16 07/30/16 07/30/16 07/31/16 07/31/16 07/31/16 07:00 15:00 23:00 07:00 15:00 23:00 Intake Total 480 ml 360 ml Output Total 300 ml 600 ml 200 ml 200 ml 575 ml Balance -300 ml -120 ml -200 ml -200 ml -215 ml Intake Oral 480 ml 360 ml IV Total 0 ml Output Urine Total 300 ml 600 ml 200 ml 200 ml 575 ml # Bowel Movements 1 0 1 Objective Remarks GENERAL: Morbidly obese male trach collar SKIN: Warm and dry. HEAD: Normocephalic. EYES: No scleral icterus. No injection or drainage. NECK: Supple, trachea midline. No JVD or lymphadenopathy. CARDIOVASCULAR: Regular rate and rhythm without murmurs, gallops, or rubs. RESPIRATORY: Breath sounds equal bilaterally. No accessory muscle use. GASTROINTESTINAL: Abdomen soft, non-tender, nondistended. MUSCULOSKELETAL: No cyanosis, or edema. BACK: Nontender without obvious deformity. No CVA tenderness. A/P Assessment and Plan S/P trach ARDS-resolved Pneumonia JACOB PLAN: Trach collar Aerosol nebs Supplement 02 to keep sat >90% AneMusa mancini MD July 31, 2016 19:15
[2016-07-31 20:00] VITALS: BP 96/51; PULSE 81; RESP 18; TEMP 99.2; O2SAT 95
[2016-07-31] MEDS: INSULIN DETEMIR 100 UNITS/ML VIAL SQ SCH (22:16)
[2016-08-01] VITALS (8 sets, daily range): BP systolic 90–118; BP diastolic 52–81; PULSE 79–110; RESP 18–20; TEMP 97–99.2; O2SAT 94–100
[2016-08-01] MEDS: ARTIFICIAL TEARS OPTH SOLN 15 ML BTL EACH EYE SCH ×6 (02:00→21:38)
[2016-08-01] MEDS: ENOXAPARIN SODIUM 40 MG/0.4 ML SYRINGE SQ SCH ×2 (06:36→17:55)
[2016-08-01] MEDS: DOCUSATE SODIUM 100 MG/10 ML UDC PO SCH ×2 (09:00→21:00)
[2016-08-01] MEDS: NYSTATIN 100,000 U/GM PWD 15 GM BTL TOPICAL SCH ×2 (09:00→21:00)
[2016-08-01] MEDS: BETAMETHASONE/CLOTRIMAZOLE CREAM 15 GM TOPICAL SCH ×2 (09:00→21:00)
[2016-08-01] MEDS: SODIUM CHLORIDE 0.9% FLUSH 5 ML FLUSH IVF SCH (09:00)
[2016-08-01] MEDS: BACLOFEN 10 MG TAB PO SCH (09:25)
[2016-08-01] MEDS: PREGABALIN 75 MG CAP PO SCH ×2 (09:25→21:36)
[2016-08-01] MEDS: PANTOPRAZOLE SOD 40 MG DELAYED RELEASE TAB PO SCH (09:25)
--- NOTE | 2016-08-01 11:51 | HHI.PR ---
Subjective Remarks Follow-up visit respiratory failure, tracheostomy, DM 2. Patient seen and examined today with pt was sitting in chair at bedside, dressed in street clothes. Pt covered his trach tube site and spoke for first time to clinician. Pt voiced no complaints. Recounted having bathed and walked from bed to door and back using walker. Pt denied any discomfort or breathing issues related to his recently changed tracheostomy tube. Pt did endorse lower back pain, rated 5/10 this morning. At present, he was declining pain medication. Denied pain and discomfort, cough, SOB/ dyspnea, fevers, chills, n/v/d as well as bloody urine or stool. Respiratory therapist present at bedside. She recounted recent history of pt's trach site being capped and issues that developed thereafter. No new issues/concerns raised by pt. Objective Vitals Vital Signs Date Time Temp Pulse Resp B/P Pulse Ox O2 Delivery O2 Flow Rate FiO2 08/01/16 10:34 96 T-piece 35 08/01/16 06:10 98.9 79 20 103/55 96 08/01/16 00:00 99.2 83 20 97/52 94 07/31/16 20:00 99.2 81 18 96/51 95 07/31/16 20:00 T-Piece 6.00 28 07/31/16 16:00 T-Piece 6.00 28 07/31/16 16:00 98.6 91 16 108/56 95 07/31/16 12:00 T-Piece 6.00 28 I/O 07/31/16 07/31/16 07/31/16 08/01/16 08/01/16 08/01/16 07:00 15:00 23:00 07:00 15:00 23:00 Intake Total 360 ml Output Total 200 ml 575 ml 650 ml 700 ml Balance -200 ml -215 ml -650 ml -700 ml Intake Oral 360 ml Output Urine Total 200 ml 575 ml 650 ml 700 ml # Bowel Movements 1 0 0 Imaging Last Impressions Chest X-Ray 06/30/16 0600 Signed Impressions: Service Date/Time: Thursday, June 30, 2016 06:07 - CONCLUSION: No significant change. Mild bilateral perihilar and basilar consolidation again noted. Ubaldo Ortiz MD Shoulder X-Ray 06/28/16 0000 Signed Impressions: Service Date/Time: June 15:12 - CONCLUSION: 1. Limited but negative examination of the shoulder. Kyaw Rojo MD Abdomen X-Ray 06/19/16 0000 Signed Impressions: Service Date/Time: Sunday, June 19, 2016 10:43 - CONCLUSION: Gastric tube tip does not cross the diaphragm and the side port is approximately 8 cm above the diaphragm. Chano Goodwin MD Lower Extremity Ultrasound 06/04/16 0000 Signed Impressions: Service Date/Time: Saturday, June 04, 2016 14:54 - CONCLUSION: 1. No DVT identified. Dc Barton MD Liver Ultrasound 05/09/16 0000 Signed Impressions: Service Date/Time: Monday, May 09, 2016 22:28 - CONCLUSION: 1. Enlarged, fatty liver. 2. Small stones or tumefactive sludge adherent to one of the gallbladder arcos. 3. Splenomegaly. 4. Pancreas is obscured by overlying bowel gas and patient's body habitus. Arthur Kennedy MD Chest CT 03/28/16 0836 Signed Impressions: Service Date/Time: Monday, March 28, 2016 09:57 - CONCLUSION: Development areas of air bronchograms and consolidation more prominent in the right and left posterior basilar segments of the lower lobes. ET tube above the chanelle. Bernard Hartman MD CT Angiography 03/24/16 1121 Signed Impressions: Service Date/Time: Thursday, March 24, 2016 12:47 - CONCLUSION: 1. There is respiratory motion artifact but no PE is identified through most of the segmental level pulmonary arteries. 2. Mildly enlarged main pulmonary artery may indicate pulmonary arterial hypertension. 3. 11 mm left lower lobe noncalcified pulmonary nodule. Suggest correlation with any prior imaging studies that could confirm longer-term stability. If none are available consider short-term followup noncontrast chest CT in approximately 3 months. Ubaldo Rodas MD Objective Remarks GENERAL: Pt sitting up in chair, dressed in shirt and pants, awake and alert, not in acute distress. Spoke to clinician for first time by closing trach site. SKIN: Warm and dry. Skin wound at site of T- Piece. Bandage covering wound site. HEAD: Normocephalic. EYES: No scleral icterus. No injection or drainage. NECK: Supple, trachea midline. Trach present. CARDIOVASCULAR: Regular rate and rhythm without murmurs, gallops, or rubs. RESPIRATORY: Breath sounds equal bilaterally. No accessory muscle use. GASTROINTESTINAL: Abdomen soft, large, non-tender, nondistended. Bowel sounds present all quadrants. MUSCULOSKELETAL: No cyanosis, or edema. PSYCHIATRIC: Pt alert and oriented, without over signs of depression or anxiety. Pleasant and cooperative. Pt smiling. Procedures 04/30/16 - tracheostomy by Dr. Reyes 05/03/16 - EGD with PEG placement by Dr. Faith 06/09/16 - PEG removal 06/21/16- repeat tracheostomy by Dr. Cuellar Medications and IVs Current Medications Medications (Trade) Dose Ordered Sig/Chapis Route Start Time Stop Time Status Last Admin (NS Flush) 2 ml UNSCH PRN IVF 03/24/16 11:30 05/23/16 05:55 (Lotrisone Cream) 1 applic Q12HR TOPICAL 03/26/16 09:00 08/01/16 09:00 (Lovenox Inj) 40 mg Q12H SQ 03/26/16 18:00 08/01/16 06:36 (Colace Liq) 100 mg Q12HR PO 03/29/16 09:00 07/29/16 10:00 (Tylenol 650 Mg/ 20 ml Liq) 650 mg Q6H PRN PO 03/30/16 15:45 06/23/16 21:37 (Glycerin Adult Supp) 2 gm BID PRN RECTAL 04/01/16 09:00 04/25/16 10:22 (NS Flush) DAILY IVF 04/03/16 09:00 08/01/16 09:00 (NS Flush) UNSCH PRN IVF 04/02/16 09:30 04/22/16 07:42 (Tears Naturale Opth Soln) 1 drop Q4H EACH EYE 04/21/16 18:00 07/29/16 18:00 (Mycostatin Powder) 1 applic Q12HR TOPICAL 04/27/16 11:00 07/31/16 21:00 (Zofran Inj) 4 mg Q6H PRN IV 05/05/16 06:45 (Phazyme Chew) 125 mg DAILY PRN PO 05/11/16 15:00 05/12/16 15:00 (Pill Splitter) 1 ea UNSCH PRN OTHER 05/24/16 10:45 (Protonix) 40 mg DAILY PO 05/26/16 09:00 08/01/16 09:25 (D50w (Vial) Inj) 25 ml UNSCH PRN IV PUSH 05/31/16 22:00 (Levemir Inj) 5 units HS SQ 06/06/16 21:00 07/31/16 22:16 (Lioresal) 5 mg DAILY PO 06/22/16 09:00 08/01/16 09:25 (Lyrica) 75 mg Q12HR PO 06/22/16 09:00 08/01/16 09:25 (Roxicodone) 2.5 mg Q4H PRN PO 06/24/16 17:00 08/01/16 11:33 (Miralax) 17 gm BID PRN PO 07/07/16 11:00 (Silver Nitrate Applicators) 1 appl Q7D PRN TOPICAL 07/17/16 14:45 07/26/16 09:01 Urinary Catheter: No Date of Removal: Jun 29, 2016 A/P Problem List: (1) Acute hypercapnic respiratory failure ICD Code: J96.02 Status: Acute (2) Staphylococcus aureus pneumonia ICD Code: J15.211 Status: Acute (3) Encephalopathy ICD Code: G93.40 Status: Acute (4) JACOB (obstructive sleep apnea) ICD Code: G47.33 Status: Acute (5) Diabetes mellitus type 2 in obese ICD Code: E11.9 Status: Acute (6) Morbid obesity with BMI of 50.0-59.9, adult ICD Code: E66.01 Status: Acute (7) Obesity hypoventilation syndrome ICD Code: E66.2 Status: Acute (8) Normocytic anemia ICD Code: D64.9 Status: Chronic Assessment and Plan Mr. Leger is a pleasant 50 year old male with a history of sleep apnea, morbid obesity, DM 2 who was admitted to the hospital on 03/24/2016 due to lightheadedness and dizziness. Initial work up indicated hypercarbia as well as hypoxemia. His O2 sat was 78% in the ED. CTA was negative for PE. He was started on BiPAP. However, due to unsatisfactory response, patient was intubated after neuromuscular paralysis using succinylcholine. Tracheostomy was done on 04/30/2016. Patient remained in the ICU until 05/07/2016. Patient went into acute respiratory failure again on 05/27/2016 and subsequently he was transferred back to ICU. Trach was exchanged on 05/27/2016 and he remained on mechanical ventilation. He was weaned off mechanical ventilation after tolerating CPAP trials. He was placed on T piece trial and tolerated that well. He was subsequently transferred to hospitalist service on 06/05/2016. Acute respiratory failure mixed hypercarbic and hypoxemic Probable obstructive sleep apnea Obesity hypoventilation syndrome - Status post Tracheostomy. - On 35% FiO2 T-piece, O2 sat stable, trach collar, keep O2 sat > 92%. - Pulmonary following. - Continue DuoNeb treatments. -Dr. Perry (Pulmonary medicine) ordered bipap at night for JACOB, please refer to his note for more information. -Tracheostomy weaning ongoing, tube changed 07/30/16. Pt and RN report no difficulties with breathing. - Weaning ongoing, pt speaking. Pneumonia with Staph Aureus, resolved. ID signed off. 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 - Continue Baclofen 5mg daily, Lyrica 75mg bid, with oxycodone 2.5mg PO q4h PRN per pain scale. Diabetes mellitus type 2 with neuropathy - HgbA1c 7.4 in . Goal glucose 140-180. - Continue Levemir 5 units QHS . - Blood glucose well controlled - Continue Accu-checks BID. - Continue Lyrica and Baclofen for neuropathy. -Finger sticks now to be done every 6 hours (07/19/16). Nutrition: status post PEG tube placed initially on 05/03 by LIBBY Faith - 06/09/16: pt complains of irritation/drainage/discomfort at PEG insertion site, tolerating PO intake. - PEG removed 06/09/16 by LIBBY Munson. - Beneprotein discontinued as it had been ordered while/when pt had a PEG tube. Transaminitis: LFTs improved, abdominal pain resolved. - Liver US shows fatty liver. Small stones or tumefactive sludge adherent to one of the gallbladder arcos. Splenomegaly. - Avoid hepatotoxins. - Hepatitis panel negative. Wound on anterior neck 04/05 trach collar, stage III: Patient has a short and large neck. - Optifoam in place. - Apply bacitracin. - Wound cultures with normal sherine. - Wound care following, last saw patient 07/03. -Wound care contacted hospitalist team on 07/17/16 requesting d/c of Silvadene and initiation of Silver nitrate to address wound. Orders placed. Morbid Obesity with BMI 51.8 on admission: Encouraged weight loss. As of BMI is 48.4. -BMI is increased to 50.0 on 07/22/16 Left Shoulder Pain: with decreased ROM. - Xrays negative for fracture/dislocations. - Continue PT - Continue pain control with oxycodone 2.5mg po q4h prn Chronic normocytic anemia: -Labs personally reviewed, values effectively unchanged since last draw. -May be secondary to secondary to chronic health issues; may consider vitamin B6/12 evaluation Full code. DVT prophylaxis: Lovenox. Case discussed with pt, RN, respiratory therapist, and Dr. Bejarano. Discharge Planning No significant change in management. Continue placement efforts. Nilton Riley Jr. August 01, 2016 11:51
--- NOTE | 2016-08-01 20:38 | HHI.PR ---
Subjective Remarks 50 YO morbidly obese male s/p RF, Trach On trach collar No distress Awake, follows commands No new complaint trach secretions clear Objective Vital Signs Vital Signs Date Time Temp Pulse Resp B/P Pulse Ox O2 Delivery O2 Flow Rate FiO2 08/01/16 17:55 97 T-piece 6.00 35 08/01/16 16:00 97.0 100 20 99/59 97 08/01/16 16:00 T-Piece 6.00 35 08/01/16 12:00 T-Piece 6.00 35 08/01/16 12:00 98.3 110 20 100/81 100 08/01/16 10:34 96 T-piece 35 08/01/16 08:00 98.2 82 18 118/58 97 08/01/16 08:00 T-Piece 6.00 28 08/01/16 06:10 98.9 79 20 103/55 96 08/01/16 00:00 99.2 83 20 97/52 94 I/O 07/31/16 07/31/16 07/31/16 08/01/16 08/01/16 08/01/16 07:00 15:00 23:00 07:00 15:00 23:00 Intake Total 360 ml 480 ml Output Total 200 ml 575 ml 650 ml 700 ml 600 ml Balance -200 ml -215 ml -650 ml -700 ml -120 ml Intake Oral 360 ml 480 ml Output Urine Total 200 ml 575 ml 650 ml 700 ml 600 ml # Bowel Movements 1 0 0 1 Objective Remarks GENERAL: Morbidly obese male trach collar SKIN: Warm and dry. HEAD: Normocephalic. EYES: No scleral icterus. No injection or drainage. NECK: Supple, trachea midline. No JVD or lymphadenopathy. CARDIOVASCULAR: Regular rate and rhythm without murmurs, gallops, or rubs. RESPIRATORY: Breath sounds equal bilaterally. No accessory muscle use. GASTROINTESTINAL: Abdomen soft, non-tender, nondistended. MUSCULOSKELETAL: No cyanosis, or edema. BACK: Nontender without obvious deformity. No CVA tenderness. A/P Assessment and Plan S/P trach ARDS-resolved Pneumonia JACOB PLAN: Trach collar Aerosol nebs Supplement 02 to keep sat >90% Musa Key MD August 01, 2016 20:38
[2016-08-01] MEDS: INSULIN DETEMIR 100 UNITS/ML VIAL SQ SCH (21:36)
[2016-08-02] VITALS (8 sets, daily range): BP systolic 107–131; BP diastolic 56–68; PULSE 78–95; RESP 18–20; TEMP 90–98.6; O2SAT 93–99
[2016-08-02] MEDS: ARTIFICIAL TEARS OPTH SOLN 15 ML BTL EACH EYE SCH ×6 (02:00→22:00)
[2016-08-02] MEDS: ENOXAPARIN SODIUM 40 MG/0.4 ML SYRINGE SQ SCH ×2 (05:10→18:00)
[2016-08-02] MEDS: PANTOPRAZOLE SOD 40 MG DELAYED RELEASE TAB PO SCH (08:57)
[2016-08-02] MEDS: PREGABALIN 75 MG CAP PO SCH ×3 (08:57→20:24)
[2016-08-02] MEDS: BACLOFEN 10 MG TAB PO SCH (08:57)
[2016-08-02] MEDS: NYSTATIN 100,000 U/GM PWD 15 GM BTL TOPICAL SCH ×2 (09:00→20:14)
[2016-08-02] MEDS: SODIUM CHLORIDE 0.9% FLUSH 5 ML FLUSH IVF SCH (09:00)
[2016-08-02] MEDS: DOCUSATE SODIUM 100 MG/10 ML UDC PO SCH ×2 (09:00→20:14)
[2016-08-02] MEDS: BETAMETHASONE/CLOTRIMAZOLE CREAM 15 GM TOPICAL SCH ×2 (09:00→20:15)
--- NOTE | 2016-08-02 10:23 | HHI.PR ---
Subjective Remarks Follow-up visit for Mr. ansari, status post tracheostomy, DM 2. Patient seen and examined today. Patient's lying and states he is comfortable but states that he is unable to due to Passy-Meka because he get short of breath. States that they have only tried the fenestrated ones and switch him over to just a smaller Shiley from #8- #6. Reports coughing, moderately thick yellow secretions. Currently on T piece 28%. Denies pain and discomfort. Denies SOB / dyspnea. Denies chest pain, palpitations, headaches, dizziness. Denies fevers , chills, n/v/d. Denies hematuria, dysuria. Objective Vitals Vital Signs Date Time Temp Pulse Resp B/P Pulse Ox O2 Delivery O2 Flow Rate FiO2 08/02/16 08:24 94 T-piece 35 08/02/16 04:00 98.1 82 20 107/64 95 08/02/16 00:00 98.6 88 20 111/56 94 08/01/16 20:00 98.4 88 20 90/53 96 08/01/16 20:00 T-Piece 6.00 28 08/01/16 17:55 97 T-piece 6.00 35 08/01/16 16:00 97.0 100 20 99/59 97 08/01/16 16:00 T-Piece 6.00 35 08/01/16 12:00 T-Piece 6.00 35 08/01/16 12:00 98.3 110 20 100/81 100 08/01/16 10:34 96 T-piece 35 I/O 08/01/16 08/01/16 08/01/16 08/02/16 08/02/16 08/02/16 07:00 15:00 23:00 07:00 15:00 23:00 Intake Total 480 ml 340 ml 240 ml Output Total 700 ml 600 ml 400 ml 300 ml Balance -700 ml -120 ml -60 ml -60 ml Intake Oral 480 ml 340 ml 240 ml Output Urine Total 700 ml 600 ml 400 ml 300 ml # Bowel Movements 0 1 Imaging Last Impressions Chest X-Ray 06/30/16 0600 Signed Impressions: Service Date/Time: Thursday, June 30, 2016 06:07 - CONCLUSION: No significant change. Mild bilateral perihilar and basilar consolidation again noted. Ubaldo Ortiz MD Shoulder X-Ray 06/28/16 0000 Signed Impressions: Service Date/Time: June 15:12 - CONCLUSION: 1. Limited but negative examination of the shoulder. Kyaw Rojo MD Abdomen X-Ray 06/19/16 0000 Signed Impressions: Service Date/Time: Sunday, June 19, 2016 10:43 - CONCLUSION: Gastric tube tip does not cross the diaphragm and the side port is approximately 8 cm above the diaphragm. Chano Goodwin MD Lower Extremity Ultrasound 06/04/16 0000 Signed Impressions: Service Date/Time: Saturday, June 04, 2016 14:54 - CONCLUSION: 1. No DVT identified. Dc Barton MD Liver Ultrasound 05/09/16 0000 Signed Impressions: Service Date/Time: Monday, May 09, 2016 22:28 - CONCLUSION: 1. Enlarged, fatty liver. 2. Small stones or tumefactive sludge adherent to one of the gallbladder arcos. 3. Splenomegaly. 4. Pancreas is obscured by overlying bowel gas and patient's body habitus. Arthur Kennedy MD Chest CT 03/28/16 0836 Signed Impressions: Service Date/Time: Monday, March 28, 2016 09:57 - CONCLUSION: Development areas of air bronchograms and consolidation more prominent in the right and left posterior basilar segments of the lower lobes. ET tube above the chanelle. Bernard Hartman MD CT Angiography 03/24/16 1121 Signed Impressions: Service Date/Time: Thursday, March 24, 2016 12:47 - CONCLUSION: 1. There is respiratory motion artifact but no PE is identified through most of the segmental level pulmonary arteries. 2. Mildly enlarged main pulmonary artery may indicate pulmonary arterial hypertension. 3. 11 mm left lower lobe noncalcified pulmonary nodule. Suggest correlation with any prior imaging studies that could confirm longer-term stability. If none are available consider short-term followup noncontrast chest CT in approximately 3 months. Ubaldo Rodas MD Objective Remarks GENERAL: This is a well-nourished, well-developed patient, in no apparent distress. SKIN: Warm and dry. Dry feet. HEENT: Normocephalic. Pupils equal round and reactive. Nose without bleeding. NECK: No JVD. Supple. Tracheostomy in place. Trach site without any redness, edema of the following place. Optiform in place. CARDIOVASCULAR: Regular rate and rhythm without murmurs, gallops, or rubs. RESPIRATORY: Rhonchi Bilateral upper lobes. Clear Bilat lower lobes with good air aeration. GASTROINTESTINAL: Abdomen soft, non-tender, nondistended. Bowel Sounds normoactive x4. : Voiding without difficulty. MUSCULOSKELETAL: Extremities without clubbing, cyanosis, bilateral foot trace edema. NEUROLOGICAL: Awake and alert. No focal neuro deficit. Moves all extremities. Procedures 04/30/16 - tracheostomy by Dr. Reyes 05/03/16 - EGD with PEG placement by Dr. Faith 06/09/16 - PEG removal 06/21/16- repeat tracheostomy by Dr. Cuellar Date of Removal: Jun 29, 2016 A/P Problem List: (1) Acute hypercapnic respiratory failure ICD Code: J96.02 Status: Acute (2) Staphylococcus aureus pneumonia ICD Code: J15.211 Status: Acute (3) Encephalopathy ICD Code: G93.40 Status: Acute (4) JACOB (obstructive sleep apnea) ICD Code: G47.33 Status: Acute (5) Diabetes mellitus type 2 in obese ICD Code: E11.9 Status: Acute (6) Morbid obesity with BMI of 50.0-59.9, adult ICD Code: E66.01 Status: Acute (7) Obesity hypoventilation syndrome ICD Code: E66.2 Status: Acute (8) Normocytic anemia ICD Code: D64.9 Status: Chronic Assessment and Plan Mr. Leger is a pleasant 50 year old male with a history of sleep apnea, morbid obesity, DM 2 who was admitted to the hospital on 03/24/2016 due to lightheadedness and dizziness. Initial work up indicated hypercarbia as well as hypoxemia. His O2 sat was 78% in the ED. CTA was negative for PE. He was started on BiPAP. However, due to unsatisfactory response, patient was intubated after neuromuscular paralysis using succinylcholine. Tracheostomy was done on 04/30/2016. Patient remained in the ICU until 05/07/2016. Patient went into acute respiratory failure again on 05/27/2016 and subsequently he was transferred back to ICU. Trach was exchanged on 05/27/2016 and he remained on mechanical ventilation. He was weaned off mechanical ventilation after tolerating CPAP trials. He was placed on T piece trial and tolerated that well. He was subsequently transferred to hospitalist service on 06/05/2016. Acute respiratory failure mixed hypercarbic and hypoxemic Probable obstructive sleep apnea Obesity hypoventilation syndrome - Status post Tracheostomy. - On T-piece, O2 sat stable, trach collar, keep O2 sat > 92%. - Pulmonary following. Dr. Perry (Pulmonary medicine) ordered bipap at night for JACOB. - Continue DuoNeb treatments. - Dr. Perry, agreed to change patient to cuffless fenestrated tracheostomy. Wean off tpiece. Possibly try Passy Mur. - Attempted to change to fenestrated #6, unable to tolerate but attempt was only x1. Wayne is now #6. Will start budesonide and continue to attempt trache weaning and possible capping Neuropathy - Continue Baclofen 5mg daily, Lyrica 75mg bid, with oxycodone 2.5mg PO q4h PRN per pain scale. Diabetes mellitus type 2 with neuropathy - HgbA1c 7.4 in . Goal glucose 140-180. - Hold Levemir 5 units QHS . Start Metformin 500mg BID. - Accu-Cheks BID. - Repeat hemoglobin A1c 5.2. - On metformin at home. Plan to switch back to metformin and dc Levemir. Pt. not on any insulin at home. S/P PEG removed 06/09/[address] Munson. - Patient tolerating by mouth diet. Transaminitis: LFTs improved, abdominal pain resolved. - Liver US shows fatty liver. Small stones or tumefactive sludge adherent to one of the gallbladder arcos. Splenomegaly. - Avoid hepatotoxins. - Hepatitis panel negative. Wound on anterior neck 2/2 trach collar, stage III: Patient has a short and large neck. - Optifoam in place. - Apply bacitracin. - Wound cultures with normal sherine. - Wound care following, recommended silver nitrate for tracheostomy wound. Continue with dressing changes. Continue to monitor wound. Morbid Obesity with BMI 51.8 on admission: Encouraged weight loss. Current BMI 49.4 -->48.7 Chronic normocytic anemia - Labs reviewed, values effectively unchanged since last draw. - Pneumonia with Staph Aureus, resolved. ID signed off. Toxic metabolic encephalopathy, resolved. Full code. DVT prophylaxis: Lovenox. Discussed with patient, nursing, Dr. Bejarano Discharge Planning Plan to DC home with brother. Motivated to go home. Wean off tracheostomy. Plan to DC home when weaned off. Mel Raymundo Aug 02, 2016 10:23
[2016-08-02] MEDS: metFORMIN HCL 500 MG TAB PO SCH (18:00)
--- NOTE | 2016-08-02 19:55 | HHI.PR ---
Subjective Remarks 50 YO morbidly obese male s/p RF, Trach On trach collar No distress Awake, follows commands trach secretions clear Objective Vital Signs Vital Signs Date Time Temp Pulse Resp B/P Pulse Ox O2 Delivery O2 Flow Rate FiO2 08/02/16 16:00 98.2 87 18 111/65 98 08/02/16 12:00 90.0 90 20 131/65 99 08/02/16 11:00 16 08/02/16 08:24 94 T-piece 35 08/02/16 08:00 94 T-Piece 6.00 28 Humidified 08/02/16 08:00 98.1 78 18 111/65 95 08/02/16 04:00 98.1 82 20 107/64 95 08/02/16 00:00 98.6 88 20 111/56 94 08/01/16 20:00 98.4 88 20 90/53 96 08/01/16 20:00 T-Piece 6.00 28 I/O 08/01/16 08/01/16 08/01/16 08/02/16 08/02/16 08/02/16 07:00 15:00 23:00 07:00 15:00 23:00 Intake Total 480 ml 340 ml 240 ml 480 ml Output Total 700 ml 600 ml 400 ml 300 ml 600 ml Balance -700 ml -120 ml -60 ml -60 ml -120 ml Intake Oral 480 ml 340 ml 240 ml 480 ml Output Urine Total 700 ml 600 ml 400 ml 300 ml 600 ml # Bowel Movements 0 1 1 Objective Remarks GENERAL: Morbidly obese male trach collar SKIN: Warm and dry. HEAD: Normocephalic. EYES: No scleral icterus. No injection or drainage. NECK: Supple, trachea midline. No JVD or lymphadenopathy. CARDIOVASCULAR: Regular rate and rhythm without murmurs, gallops, or rubs. RESPIRATORY: Breath sounds equal bilaterally. No accessory muscle use. GASTROINTESTINAL: Abdomen soft, non-tender, nondistended. MUSCULOSKELETAL: No cyanosis, or edema. BACK: Nontender without obvious deformity. No CVA tenderness. A/P Assessment and Plan S/P trach ARDS-resolved Pneumonia JACOB PLAN: Trach collar Aerosol nebs Supplement 02 to keep sat >90% Musa Key MD Aug 02, 2016 19:55
[2016-08-02] MEDS: RESP: BUDESONIDE 0.5 MG/2 ML NEB NEB SCH (20:54)
[2016-08-03] VITALS (7 sets, daily range): BP systolic 104–124; BP diastolic 57–72; PULSE 86–98; RESP 18–24; TEMP 97.6–98.8; O2SAT 94–97
[2016-08-03] MEDS: ARTIFICIAL TEARS OPTH SOLN 15 ML BTL EACH EYE SCH ×6 (02:00→21:51)
[2016-08-03] MEDS: ENOXAPARIN SODIUM 40 MG/0.4 ML SYRINGE SQ SCH ×2 (05:17→18:59)
[2016-08-03] MEDS: RESP: ALBUTEROL 2.5 MG/IPRATROPIUM 0.5 MG NEB (PRN) NEB (07:59)
[2016-08-03] MEDS: RESP: BUDESONIDE 0.5 MG/2 ML NEB NEB SCH ×2 (07:59→20:38)
[2016-08-03] MEDS: metFORMIN HCL 500 MG TAB PO SCH ×2 (08:20→18:58)
[2016-08-03] MEDS: SODIUM CHLORIDE 0.9% FLUSH 5 ML FLUSH IVF SCH (08:20)
[2016-08-03] MEDS: BACLOFEN 10 MG TAB PO SCH (08:21)
[2016-08-03] MEDS: PANTOPRAZOLE SOD 40 MG DELAYED RELEASE TAB PO SCH (08:22)
[2016-08-03] MEDS: PREGABALIN 75 MG CAP PO SCH ×2 (08:22→21:51)
[2016-08-03 08:49] LABS: AUTOMATED NEUTROPHIL # 7.1 TH/MM3 (1.8-7.7); BASOPHIL # 0.2 TH/MM3 (0-0.2); BASOPHIL % 1.6 % (0.0-2.0); EOSINOPHIL # 0.2 TH/MM3 (0-0.4); HEMATOCRIT 37.3 % (39.0-51.0); HEMO FLAGS DIFF FINAL; LYMPH % 24.6 % (9.0-44.0); LYMPHOCYTE # 2.7 TH/MM3 (1.0-4.8); MEAN CELL VOLUME 85.5 FL (80.0-100.0); MEAN CORPUSCULAR HEMOGLOBIN 27.7 PG (27.0-34.0); MEAN CORPUSCULAR HGB CONC 32.4 % (32.0-36.0); MONO % 7.2 % (0.0-8.0); NEUT % 64.6 % (16.0-70.0); PLATELET COUNT 340 TH/MM3 (150-450); RED BLOOD COUNT 4.37 MIL/MM3 (4.50-5.90)
[2016-08-03] MEDS: BETAMETHASONE/CLOTRIMAZOLE CREAM 15 GM TOPICAL SCH ×2 (09:00→21:50)
[2016-08-03] MEDS: DOCUSATE SODIUM 100 MG/10 ML UDC PO SCH ×2 (09:00→21:00)
[2016-08-03] MEDS: NYSTATIN 100,000 U/GM PWD 15 GM BTL TOPICAL SCH ×2 (09:00→21:00)
[2016-08-03 09:16] LABS: BICARBONATE 31.3 MEQ/L (21.0-32.0); POTASSIUM 3.7 MEQ/L (3.5-5.1)
--- NOTE | 2016-08-03 11:33 | HHI.PR ---
Subjective Remarks Follow-up visit for Mr. ansari, status post tracheostomy, DM 2. Patient seen and examined today. Patient was walking with physical therapy with oxygen. States he becomes sweaty with walking and his legs are still weak. Discuss with patient deconditioning with prolonged hospitalization. Verbalized understanding and is very motivated to get well. Complains of sciatica pain left side more than the back, 8/10, aggravated by movement and walking and prolonged standing and sitting. Otherwise, denies SOB/ dyspnea. Denies chest pain, palpitations, headaches, dizziness. Denies fevers, chills, n/v/d. Denies hematuria, dysuria. Objective Vitals Vital Signs Date Time Temp Pulse Resp B/P Pulse Ox O2 Delivery O2 Flow Rate FiO2 08/03/16 08:00 97.6 94 18 124/72 96 08/03/16 04:00 97.6 86 20 113/68 94 08/03/16 00:00 97.6 94 20 121/70 95 08/02/16 20:55 93 T-piece 5.00 28 08/02/16 20:00 97.9 95 20 112/68 97 08/02/16 19:45 T-Piece 6.00 28 08/02/16 16:00 98.2 87 18 111/65 98 08/02/16 12:00 90.0 90 20 131/65 99 I/O 08/02/16 08/02/16 08/02/16 08/03/16 08/03/16 08/03/16 07:00 15:00 23:00 07:00 15:00 23:00 Intake Total 240 ml 480 ml 340 ml 150 ml Output Total 300 ml 600 ml 300 ml 200 ml Balance -60 ml -120 ml 40 ml -50 ml Intake Oral 240 ml 480 ml 340 ml 150 ml Output Urine Total 300 ml 600 ml 300 ml 200 ml # Bowel Movements 1 Result Diagram: 08/03/16 0758 08/03/16 0803 Imaging Last Impressions Chest X-Ray 06/30/16 0600 Signed Impressions: Service Date/Time: Thursday, June 30, 2016 06:07 - CONCLUSION: No significant change. Mild bilateral perihilar and basilar consolidation again noted. Ubaldo Ortiz MD Shoulder X-Ray 06/28/16 0000 Signed Impressions: Service Date/Time: June 15:12 - CONCLUSION: 1. Limited but negative examination of the shoulder. Kyaw Rojo MD Abdomen X-Ray 06/19/16 0000 Signed Impressions: Service Date/Time: Sunday, June 19, 2016 10:43 - CONCLUSION: Gastric tube tip does not cross the diaphragm and the side port is approximately 8 cm above the diaphragm. Chano Goodwin MD Lower Extremity Ultrasound 06/04/16 0000 Signed Impressions: Service Date/Time: Saturday, June 04, 2016 14:54 - CONCLUSION: 1. No DVT identified. Dc Barton MD Liver Ultrasound 05/09/16 0000 Signed Impressions: Service Date/Time: Monday, May 09, 2016 22:28 - CONCLUSION: 1. Enlarged, fatty liver. 2. Small stones or tumefactive sludge adherent to one of the gallbladder arcos. 3. Splenomegaly. 4. Pancreas is obscured by overlying bowel gas and patient's body habitus. Arthur Kennedy MD Chest CT 03/28/16 0836 Signed Impressions: Service Date/Time: Monday, March 28, 2016 09:57 - CONCLUSION: Development areas of air bronchograms and consolidation more prominent in the right and left posterior basilar segments of the lower lobes. ET tube above the chanelle. Bernard Hartman MD CT Angiography 03/24/16 1121 Signed Impressions: Service Date/Time: Thursday, March 24, 2016 12:47 - CONCLUSION: 1. There is respiratory motion artifact but no PE is identified through most of the segmental level pulmonary arteries. 2. Mildly enlarged main pulmonary artery may indicate pulmonary arterial hypertension. 3. 11 mm left lower lobe noncalcified pulmonary nodule. Suggest correlation with any prior imaging studies that could confirm longer-term stability. If none are available consider short-term followup noncontrast chest CT in approximately 3 months. Ubaldo Rodas MD Objective Remarks GENERAL: This is a well-nourished, well-developed patient, in no apparent distress. SKIN: Warm and dry. Dry feet. HEENT: Normocephalic. Pupils equal round and reactive. Nose without bleeding. NECK: No JVD. Supple. Tracheostomy in place. Trach site without any redness, edema of the following place. Optiform in place. CARDIOVASCULAR: Regular rate and rhythm without murmurs, gallops, or rubs. RESPIRATORY: Rhonchi Bilateral upper lobes. Clear Bilat lower lobes with good air aeration. GASTROINTESTINAL: Abdomen soft, non-tender, nondistended. Bowel Sounds normoactive x4. : Voiding without difficulty. MUSCULOSKELETAL: Extremities without clubbing, cyanosis, bilateral foot trace edema. NEUROLOGICAL: Awake and alert. No focal neuro deficit. Moves all extremities. Procedures 04/30/16 - tracheostomy by Dr. Reyes 05/03/16 - EGD with PEG placement by Dr. Faith 06/09/16 - PEG removal 06/21/16- repeat tracheostomy by Dr. Cuellar Date of Removal: Jun 29, 2016 A/P Problem List: (1) Acute hypercapnic respiratory failure ICD Code: J96.02 Status: Acute (2) Staphylococcus aureus pneumonia ICD Code: J15.211 Status: Acute (3) Encephalopathy ICD Code: G93.40 Status: Acute (4) JACOB (obstructive sleep apnea) ICD Code: G47.33 Status: Acute (5) Diabetes mellitus type 2 in obese ICD Code: E11.9 Status: Acute (6) Morbid obesity with BMI of 50.0-59.9, adult ICD Code: E66.01 Status: Acute (7) Obesity hypoventilation syndrome ICD Code: E66.2 Status: Acute (8) Normocytic anemia ICD Code: D64.9 Status: Chronic Assessment and Plan Mr. Leger is a pleasant 50 year old male with a history of sleep apnea, morbid obesity, DM 2 who was admitted to the hospital on 03/24/2016 due to lightheadedness and dizziness. Initial work up indicated hypercarbia as well as hypoxemia. His O2 sat was 78% in the ED. CTA was negative for PE. He was started on BiPAP. However, due to unsatisfactory response, patient was intubated after neuromuscular paralysis using succinylcholine. Tracheostomy was done on 04/30/2016. Patient remained in the ICU until 05/07/2016. Patient went into acute respiratory failure again on 05/27/2016 and subsequently he was transferred back to ICU. Trach was exchanged on 05/27/2016 and he remained on mechanical ventilation. He was weaned off mechanical ventilation after tolerating CPAP trials. He was placed on T piece trial and tolerated that well. He was subsequently transferred to hospitalist service on 06/05/2016. Acute respiratory failure mixed hypercarbic and hypoxemic Probable obstructive sleep apnea Obesity hypoventilation syndrome - Status post Tracheostomy. - On T-piece, O2 sat stable, trach collar, keep O2 sat > 92%. - Pulmonary following. Dr. Perry (Pulmonary medicine) ordered bipap at night for JACOB. - Continue DuoNeb treatments. - Dr. Perry, agreed to change patient to cuffless fenestrated tracheostomy. Wean off tpiece. Possibly try Pass[place] Mur. - Attempted to change to fenestrated #6, unable to tolerate but attempt was only x1. Wayne is now #6. Cont budesonide and continue to attempt trache weaning and possible capping. - Continue with physical therapy secondary to deconditioning Neuropathy Sciatic Pain - Continue Baclofen 5mg daily, Lyrica 75mg bid, with oxycodone 2.5mg PO q4h PRN per pain scale. Diabetes mellitus type 2 with neuropathy - HgbA1c 7.4 in . Goal glucose 140-180. - Hold Levemir 5 units QHS . Start Metformin 500mg BID. - Accu-Cheks BID. - Repeat hemoglobin A1c 5.2. - On metformin and dc Levemir. Pt. not on any insulin at home. S/P PEG removed 06/09/[address] Munson. - Patient tolerating by mouth diet. Transaminitis: LFTs improved, abdominal pain resolved. - Liver US shows fatty liver. Small stones or tumefactive sludge adherent to one of the gallbladder arcos. Splenomegaly. - Avoid hepatotoxins. - Hepatitis panel negative. Wound on anterior neck 2/2 trach collar, stage III: Patient has a short and large neck. - Optifoam in place. - Apply bacitracin. - Wound cultures with normal sherine. - Wound care following, recommended silver nitrate for tracheostomy wound. Continue with dressing changes. Continue to monitor wound. Morbid Obesity with BMI 51.8 on admission: Encouraged weight loss. Current BMI 49.4 -->48.7 Chronic normocytic anemia - Possibly anemia of chronic disease. Stable H&H. Pneumonia with Staph Aureus, resolved. ID signed off. Toxic metabolic encephalopathy, resolved. Full code. DVT prophylaxis: Lovenox. Discussed with patient, nursing, Dr. Bejarano Discharge Planning Plan to DC home with brother. Motivated to go home. Wean off tracheostomy. Plan to DC home when weaned off. Mel Raymundo Aug 03, 2016 11:33
--- NOTE | 2016-08-03 18:26 | HHI.PR ---
Subjective Remarks 50 YO morbidly obese male s/p RF, Trach On trach collar No distress Awake, follows commands trach secretions clear No fever Objective Vital Signs Vital Signs Date Time Temp Pulse Resp B/P Pulse Ox O2 Delivery O2 Flow Rate FiO2 08/03/16 16:00 98.3 98 18 114/57 96 08/03/16 12:00 98.1 89 18 111/64 97 08/03/16 08:00 95 T-piece 6.00 28 08/03/16 08:00 97.6 94 18 124/72 96 08/03/16 08:00 99 T-Piece 6.00 28 Humidified 08/03/16 04:00 97.6 86 20 113/68 94 08/03/16 00:00 97.6 94 20 121/70 95 08/02/16 20:55 93 T-piece 5.00 28 08/02/16 20:00 97.9 95 20 112/68 97 08/02/16 19:45 T-Piece 6.00 28 I/O 08/02/16 08/02/16 08/02/16 08/03/16 08/03/16 08/03/16 07:00 15:00 23:00 07:00 15:00 23:00 Intake Total 240 ml 480 ml 340 ml 150 ml 720 ml Output Total 300 ml 600 ml 300 ml 200 ml 325 ml Balance -60 ml -120 ml 40 ml -50 ml 395 ml Intake Oral 240 ml 480 ml 340 ml 150 ml 720 ml Output Urine Total 300 ml 600 ml 300 ml 200 ml 325 ml # Voids 1 # Bowel Movements 1 2 Result Diagram: 08/03/16 0758 08/03/16 0803 Objective Remarks GENERAL: Morbidly obese male trach collar SKIN: Warm and dry. HEAD: Normocephalic. EYES: No scleral icterus. No injection or drainage. NECK: Supple, trachea midline. No JVD or lymphadenopathy. CARDIOVASCULAR: Regular rate and rhythm without murmurs, gallops, or rubs. RESPIRATORY: Breath sounds equal bilaterally. No accessory muscle use. GASTROINTESTINAL: Abdomen soft, non-tender, nondistended. MUSCULOSKELETAL: No cyanosis, or edema. BACK: Nontender without obvious deformity. No CVA tenderness. A/P Assessment and Plan S/P trach ARDS-resolved Pneumonia JACOB PLAN: Trach collar Aerosol nebs Supplement 02 to keep sat >90% Stable from pulm standpoint Aneja,Musa Dev MD Aug 03, 2016 18:26
[2016-08-04] VITALS (9 sets, daily range): BP systolic 103–117; BP diastolic 59–73; PULSE 78–92; RESP 18–24; TEMP 97.7–98.8; O2SAT 93–99
[2016-08-04] MEDS: RESP: ALBUTEROL 2.5 MG/IPRATROPIUM 0.5 MG NEB (PRN) NEB ×2 (00:11→08:21)
[2016-08-04] MEDS: ARTIFICIAL TEARS OPTH SOLN 15 ML BTL EACH EYE SCH ×6 (02:00→22:00)
[2016-08-04] MEDS: ENOXAPARIN SODIUM 40 MG/0.4 ML SYRINGE SQ SCH ×2 (05:52→17:55)
[2016-08-04] MEDS: RESP: BUDESONIDE 0.5 MG/2 ML NEB NEB SCH ×2 (08:21→20:48)
[2016-08-04] MEDS: DOCUSATE SODIUM 100 MG/10 ML UDC PO SCH ×2 (09:00→21:00)
[2016-08-04] MEDS: SODIUM CHLORIDE 0.9% FLUSH 5 ML FLUSH IVF SCH (09:00)
[2016-08-04] MEDS: PANTOPRAZOLE SOD 40 MG DELAYED RELEASE TAB PO SCH (09:17)
[2016-08-04] MEDS: metFORMIN HCL 500 MG TAB PO SCH ×2 (09:17→17:55)
[2016-08-04] MEDS: PREGABALIN 75 MG CAP PO SCH ×2 (09:17→22:19)
[2016-08-04] MEDS: BACLOFEN 10 MG TAB PO SCH (09:18)
[2016-08-04] MEDS: BETAMETHASONE/CLOTRIMAZOLE CREAM 15 GM TOPICAL SCH ×2 (09:24→21:00)
[2016-08-04] MEDS: NYSTATIN 100,000 U/GM PWD 15 GM BTL TOPICAL SCH ×2 (09:24→21:00)
--- NOTE | 2016-08-04 13:34 | HHI.PR ---
Subjective Remarks Follow-up visit for Mr. ansari, status post tracheostomy, DM 2. Patient seen and examined today. Pt was able to speak through the visit today, and reported he walked from his room to chairs near entrance, and back, reportedly he became sweaty with walking; his legs are still weak. Pt. is very motivated to get well. He stated he learned what the problem with his trach and "it was too loose." He stated the issue is resolved and "it feels nice and tight now." Denied SOB/ dyspnea, chest pain, headaches, dizziness, fever, chills, n/v/d. His nurse (Apoorva) denied acute issues. Objective Vitals Vital Signs Date Time Temp Pulse Resp B/P Pulse Ox O2 Delivery O2 Flow Rate FiO2 08/04/16 08:30 T-Piece 6.00 28 08/04/16 08:21 96 T-piece 5.00 28 08/04/16 08:00 97.7 92 24 109/64 96 08/04/16 04:00 98.0 85 20 104/59 97 08/04/16 00:14 93 T-piece 28 08/04/16 00:00 98.7 78 24 107/64 98 08/03/16 20:43 95 T-piece 5.00 28 08/03/16 20:15 T-Piece 6.00 28 08/03/16 20:00 98.8 95 24 104/60 96 08/03/16 16:00 98.3 98 18 114/57 96 I/O 08/03/16 08/03/16 08/03/16 08/04/16 08/04/16 08/04/16 07:00 15:00 23:00 07:00 15:00 23:00 Intake Total 150 ml 720 ml 720 ml 360 ml Output Total 200 ml 325 ml 120 ml 450 ml Balance -50 ml 395 ml 600 ml -90 ml Intake Oral 150 ml 720 ml 720 ml 360 ml Output Urine Total 200 ml 325 ml 120 ml 450 ml # Voids 1 # Bowel Movements 2 0 0 Result Diagram: 08/03/16 0758 08/03/16 0803 Imaging No new imaging ordered, pending, or resulted within the past 24 hours. Objective Remarks GENERAL: Pt sitting up in chair, dressed in hospital gown, awake and alert, not in acute distress. Pt speaking. SKIN: Warm and dry. Skin wound at site of T- Piece. Bandage covering wound site. HEAD: Normocephalic. EYES: No scleral icterus. No injection or drainage. NECK: Supple, trachea midline. Trach present. CARDIOVASCULAR: Regular rate and rhythm without murmurs, gallops, or rubs. RESPIRATORY: Breath sounds equal bilaterally. No accessory muscle use. GASTROINTESTINAL: Abdomen soft, large, non-tender, nondistended. Bowel sounds present all quadrants. MUSCULOSKELETAL: No cyanosis, or edema. PSYCHIATRIC: Pt alert and oriented, without over signs of depression or anxiety. Pleasant and cooperative. Pt smiling. Procedures 04/30/16 - tracheostomy by Dr. Reyes 05/03/16 - EGD with PEG placement by Dr. Faith 06/09/16 - PEG removal 06/21/16- repeat tracheostomy by Dr. Cuellar Medications and IVs Current Medications Medications (Trade) Dose Ordered Sig/Chapis Route Start Time Stop Time Status Last Admin (NS Flush) 2 ml UNSCH PRN IVF 03/24/16 11:30 05/23/16 05:55 (Lotrisone Cream) 1 applic Q12HR TOPICAL 03/26/16 09:00 08/04/16 09:24 (Lovenox Inj) 40 mg Q12H SQ 03/26/16 18:00 08/04/16 05:52 (Colace Liq) 100 mg Q12HR PO 03/29/16 09:00 07/29/16 10:00 (Tylenol 650 Mg/ 20 ml Liq) 650 mg Q6H PRN PO 03/30/16 15:45 06/23/16 21:37 (Glycerin Adult Supp) 2 gm BID PRN RECTAL 04/01/16 09:00 04/25/16 10:22 (NS Flush) DAILY IVF 04/03/16 09:00 08/02/16 09:00 (NS Flush) UNSCH PRN IVF 04/02/16 09:30 04/22/16 07:42 (Tears Naturale Opth Soln) 1 drop Q4H EACH EYE 04/21/16 18:00 08/04/16 09:25 (Mycostatin Powder) 1 applic Q12HR TOPICAL 04/27/16 11:00 08/04/16 09:24 (Zofran Inj) 4 mg Q6H PRN IV 05/05/16 06:45 (Phazyme Chew) 125 mg DAILY PRN PO 05/11/16 15:00 05/12/16 15:00 (Pill Splitter) 1 ea UNSCH PRN OTHER 05/24/16 10:45 (Protonix) 40 mg DAILY PO 05/26/16 09:00 08/04/16 09:17 (D50w (Vial) Inj) 25 ml UNSCH PRN IV PUSH 05/31/16 22:00 (Levemir Inj) 5 units HS SQ 06/06/16 21:00 Hold 08/01/16 21:36 (Lioresal) 5 mg DAILY PO 06/22/16 09:00 08/04/16 09:18 (Lyrica) 75 mg Q12HR PO 06/22/16 09:00 08/04/16 09:17 (Roxicodone) 2.5 mg Q4H PRN PO 06/24/16 17:00 08/04/16 09:18 (Miralax) 17 gm BID PRN PO 07/07/16 11:00 (Silver Nitrate Applicators) 1 appl Q7D PRN TOPICAL 07/17/16 14:45 07/26/16 09:01 (Glucophage) 500 mg BIDPC PO 08/02/16 18:00 08/04/16 09:17 Urinary Catheter: No Date of Removal: Jun 29, 2016 A/P Problem List: (1) Acute hypercapnic respiratory failure ICD Code: J96.02 Status: Acute (2) Staphylococcus aureus pneumonia ICD Code: J15.211 Status: Acute (3) Encephalopathy ICD Code: G93.40 Status: Acute (4) JACOB (obstructive sleep apnea) ICD Code: G47.33 Status: Acute (5) Diabetes mellitus type 2 in obese ICD Code: E11.9 Status: Acute (6) Morbid obesity with BMI of 50.0-59.9, adult ICD Code: E66.01 Status: Acute (7) Obesity hypoventilation syndrome ICD Code: E66.2 Status: Acute (8) Normocytic anemia ICD Code: D64.9 Status: Chronic Assessment and Plan Mr. Leger is a pleasant 50 year old male with a history of sleep apnea, morbid obesity, DM 2 who was admitted to the hospital on 03/24/2016 due to lightheadedness and dizziness. Initial work up indicated hypercarbia as well as hypoxemia. His O2 sat was 78% in the ED. CTA was negative for PE. He was started on BiPAP. However, due to unsatisfactory response, patient was intubated after neuromuscular paralysis using succinylcholine. Tracheostomy was done on 04/30/2016. Patient remained in the ICU until 05/07/2016. Patient went into acute respiratory failure again on 05/27/2016 and subsequently he was transferred back to ICU. Trach was exchanged on 05/27/2016 and he remained on mechanical ventilation. He was weaned off mechanical ventilation after tolerating CPAP trials. He was placed on T piece trial and tolerated that well. He was subsequently transferred to hospitalist service on 06/05/2016. Acute respiratory failure mixed hypercarbic and hypoxemic Probable obstructive sleep apnea Obesity hypoventilation syndrome - Status post Tracheostomy. - On 35% FiO2 T-piece, O2 sat stable, trach collar, keep O2 sat > 92%. - Pulmonary following. - Continue DuoNeb treatments. -Dr. Perry (Pulmonary medicine) ordered bipap at night for JACOB, please refer to his note for more information. -Tracheostomy weaning ongoing, tube changed 07/30/16. Pt and RN report no difficulties with breathing. - Weaning ongoing, pt speaking. Pneumonia with Staph Aureus, resolved. ID signed off. 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 - Continue Baclofen 5mg daily, Lyrica 75mg bid, with oxycodone 2.5mg PO q4h PRN per pain scale. Diabetes mellitus type 2 with neuropathy - HgbA1c 7.4 in . Goal glucose 140-180. - Continue Levemir 5 units QHS . - Blood glucose well controlled - Continue Accu-checks BID. - Continue Lyrica and Baclofen for neuropathy. -Finger sticks now to be done every 6 hours (07/19/16). Nutrition: status post PEG tube placed initially on 05/03 by LIBBY Faith - 06/09/16: pt complains of irritation/drainage/discomfort at PEG insertion site, tolerating PO intake. - PEG removed 06/09/16 by LIBBY Munson. - Beneprotein discontinued as it had been ordered while/when pt had a PEG tube. Transaminitis: LFTs improved, abdominal pain resolved. - Liver US shows fatty liver. Small stones or tumefactive sludge adherent to one of the gallbladder arcos. Splenomegaly. - Avoid hepatotoxins. - Hepatitis panel negative. 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 - Optifoam in place. - Apply bacitracin. - Wound cultures with normal sherine. - Wound care following, last saw patient 07/03. -Wound care contacted hospitalist team on 07/17/16 requesting d/c of Silvadene and initiation of Silver nitrate to address wound. Orders placed. Morbid Obesity with BMI 51.8 on admission: Encouraged weight loss. As of BMI is 48.4. -BMI is increased to 50.0 on 07/22/16 Left Shoulder Pain: with decreased ROM. - Xrays negative for fracture/dislocations. - Continue PT - Continue pain control with oxycodone 2.5mg po q4h prn Chronic normocytic anemia: -Labs personally reviewed, values effectively unchanged since last draw. -May be secondary to secondary to chronic health issues; may consider vitamin B6/12 evaluation Full code. DVT prophylaxis: Lovenox. Case discussed with pt, RN (Apoorva), and Dr. Bejarano. Discharge Planning No significant change in management. Continue placement efforts. Nilton Riley Jr. Aug 04, 2016 13:34
--- NOTE | 2016-08-04 13:46 | HHI.PR ---
Subjective Remarks 50 YO morbidly obese male s/p RF, Trach On trach collar No distress Awake, follows commands trach secretions clear Objective Vital Signs Vital Signs Date Time Temp Pulse Resp B/P Pulse Ox O2 Delivery O2 Flow Rate FiO2 08/04/16 12:00 98.2 92 22 110/59 99 08/04/16 08:30 T-Piece 6.00 28 08/04/16 08:21 96 T-piece 5.00 28 08/04/16 08:00 97.7 92 24 109/64 96 08/04/16 04:00 98.0 85 20 104/59 97 08/04/16 00:14 93 T-piece 28 08/04/16 00:00 98.7 78 24 107/64 98 08/03/16 20:43 95 T-piece 5.00 08/03/16 20:15 T-Piece 6.00 28 08/03/16 20:00 98.8 95 24 104/60 96 08/03/16 16:00 98.3 98 18 114/57 96 I/O 08/03/16 08/03/16 08/03/16 08/04/16 08/04/16 08/04/16 07:00 15:00 23:00 07:00 15:00 23:00 Intake Total 150 ml 720 ml 720 ml 360 ml Output Total 200 ml 325 ml 120 ml 450 ml Balance -50 ml 395 ml 600 ml -90 ml Intake Oral 150 ml 720 ml 720 ml 360 ml Output Urine Total 200 ml 325 ml 120 ml 450 ml # Voids 1 # Bowel Movements 2 0 0 Result Diagram: 08/03/16 0758 08/03/16 0803 Objective Remarks GENERAL: Morbidly obese male trach collar SKIN: Warm and dry. HEAD: Normocephalic. EYES: No scleral icterus. No injection or drainage. NECK: Supple, trachea midline. No JVD or lymphadenopathy. CARDIOVASCULAR: Regular rate and rhythm without murmurs, gallops, or rubs. RESPIRATORY: Breath sounds equal bilaterally. No accessory muscle use. GASTROINTESTINAL: Abdomen soft, non-tender, nondistended. MUSCULOSKELETAL: No cyanosis, or edema. BACK: Nontender without obvious deformity. No CVA tenderness. A/P Assessment and Plan S/P trach ARDS-resolved Pneumonia JACOB PLAN: Trach collar Aerosol nebs Supplement 02 to keep sat >90% Stable from pulm standpoint Stable on trach collar Musa Key MD Aug 04, 2016 13:46
[2016-08-05] VITALS (8 sets, daily range): BP systolic 104–118; BP diastolic 57–74; PULSE 80–101; RESP 18–24; TEMP 97.9–98.9; O2SAT 95–98
[2016-08-05] MEDS: ARTIFICIAL TEARS OPTH SOLN 15 ML BTL EACH EYE SCH ×6 (02:00→21:51)
[2016-08-05] MEDS: ENOXAPARIN SODIUM 40 MG/0.4 ML SYRINGE SQ SCH ×2 (05:59→16:57)
[2016-08-05] MEDS: SODIUM CHLORIDE 0.9% FLUSH 5 ML FLUSH IVF SCH (08:10)
[2016-08-05] MEDS: DOCUSATE SODIUM 100 MG/10 ML UDC PO SCH ×2 (08:11→21:00)
[2016-08-05] MEDS: BACLOFEN 10 MG TAB PO SCH (08:12)
[2016-08-05] MEDS: metFORMIN HCL 500 MG TAB PO SCH ×2 (08:13→16:56)
[2016-08-05] MEDS: PANTOPRAZOLE SOD 40 MG DELAYED RELEASE TAB PO SCH (08:13)
[2016-08-05] MEDS: PREGABALIN 75 MG CAP PO SCH ×2 (08:13→21:51)
[2016-08-05] MEDS: BETAMETHASONE/CLOTRIMAZOLE CREAM 15 GM TOPICAL SCH ×2 (08:15→21:00)
[2016-08-05] MEDS: NYSTATIN 100,000 U/GM PWD 15 GM BTL TOPICAL SCH ×2 (08:15→21:00)
[2016-08-05] MEDS: RESP: BUDESONIDE 0.5 MG/2 ML NEB NEB SCH ×2 (09:00→20:21)
--- NOTE | 2016-08-05 11:52 | HHI.PR ---
Subjective Remarks Follow-up visit for Mr. ansari, status post tracheostomy, DM 2. Patient seen and examined today. Pt was able to speak through the visit today. Reported resting and not wanting to walk very far, unassisted. Pt. is very motivated to get well. Pt reported having sciatic back pain, rated 4/10, said he had received medication. Denied SOB/ dyspnea, chest pain, headaches, dizziness, fever, chills, n/v/d. His nurse (Apoorva) denied acute issues. Objective Vitals Vital Signs Date Time Temp Pulse Resp B/P Pulse Ox O2 Delivery O2 Flow Rate FiO2 08/05/16 09:03 96 T-piece 5.00 28 08/05/16 08:00 98.5 96 22 106/57 96 08/05/16 04:00 97.9 82 20 104/65 97 08/05/16 00:00 98.4 80 18 109/59 95 08/05/16 00:00 Trach Collar 28 08/04/16 20:50 95 T-piece 28 08/04/16 20:00 T-Piece 28 08/04/16 20:00 98.8 88 18 103/60 95 08/04/16 16:00 98.5 90 20 117/73 97 08/04/16 12:15 T-Piece 6.00 28 08/04/16 12:00 98.2 92 22 110/59 99 I/O 08/04/16 08/04/16 08/04/16 08/05/16 08/05/16 08/05/16 07:00 15:00 23:00 07:00 15:00 23:00 Intake Total 360 ml 480 ml 720 ml 480 ml Output Total 450 ml 300 ml 300 ml 800 ml Balance -90 ml 180 ml 420 ml -320 ml Intake Oral 360 ml 480 ml 720 ml 480 ml Output Urine Total 450 ml 300 ml 300 ml 800 ml # Bowel Movements 0 0 0 Result Diagram: 08/03/16 0758 08/03/16 0803 Imaging No imaging studies ordered, pending, or resulted within past 24 hours. Objective Remarks GENERAL: Pt laying a bed, covered in hospital sheet,, awake and alert, not in acute distress. Pt speaking. SKIN: Warm and dry. Skin wound at site of T- Piece. Bandage covering wound site. HEAD: Normocephalic. EYES: No scleral icterus. No injection or drainage. NECK: Supple, trachea midline. Trach present. CARDIOVASCULAR: Regular rate and rhythm without murmurs, gallops, or rubs. RESPIRATORY: Breath sounds equal bilaterally. No accessory muscle use. GASTROINTESTINAL: Abdomen soft, large, non-tender, nondistended. Bowel sounds present all quadrants. MUSCULOSKELETAL: No cyanosis, or edema. PSYCHIATRIC: Pt alert and oriented, without over signs of depression or anxiety. Pleasant and cooperative. Pt smiling. Procedures 04/30/16 - tracheostomy by Dr. Reyes 05/03/16 - EGD with PEG placement by Dr. Faith 06/09/16 - PEG removal 06/21/16- repeat tracheostomy by Dr. Cuellar Date of Removal: Jun 29, 2016 A/P Problem List: (1) Acute hypercapnic respiratory failure ICD Code: J96.02 Status: Acute (2) Staphylococcus aureus pneumonia ICD Code: J15.211 Status: Acute (3) Encephalopathy ICD Code: G93.40 Status: Acute (4) JACOB (obstructive sleep apnea) ICD Code: G47.33 Status: Acute (5) Diabetes mellitus type 2 in obese ICD Code: E11.9 Status: Acute (6) Morbid obesity with BMI of 50.0-59.9, adult ICD Code: E66.01 Status: Acute (7) Obesity hypoventilation syndrome ICD Code: E66.2 Status: Acute (8) Normocytic anemia ICD Code: D64.9 Status: Chronic Assessment and Plan Mr. Leger is a pleasant 50 year old male with a history of sleep apnea, morbid obesity, DM 2 who was admitted to the hospital on 03/24/2016 due to lightheadedness and dizziness. Initial work up indicated hypercarbia as well as hypoxemia. His O2 sat was 78% in the ED. CTA was negative for PE. He was started on BiPAP. However, due to unsatisfactory response, patient was intubated after neuromuscular paralysis using succinylcholine. Tracheostomy was done on 04/30/2016. Patient remained in the ICU until 05/07/2016. Patient went into acute respiratory failure again on 05/27/2016 and subsequently he was transferred back to ICU. Trach was exchanged on 05/27/2016 and he remained on mechanical ventilation. He was weaned off mechanical ventilation after tolerating CPAP trials. He was placed on T piece trial and tolerated that well. He was subsequently transferred to hospitalist service on 06/05/2016. Acute respiratory failure mixed hypercarbic and hypoxemic Probable obstructive sleep apnea Obesity hypoventilation syndrome - Status post Tracheostomy. - On 35% FiO2 T-piece, O2 sat stable, trach collar, keep O2 sat > 92%. - Pulmonary following. - Continue DuoNeb treatments. -Dr. Perry (Pulmonary medicine) ordered bipap at night for JACOB, please refer to his note for more information. -Tracheostomy weaning ongoing, tube changed 07/30/16. Pt and RN report no difficulties with breathing. - Weaning ongoing, pt speaking. Pneumonia with Staph Aureus, resolved. ID signed off. 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 - Continue Baclofen 5mg daily, Lyrica 75mg bid, with oxycodone 2.5mg PO q4h PRN per pain scale. Diabetes mellitus type 2 with neuropathy - HgbA1c 7.4 in . Goal glucose 140-180. - Continue Levemir 5 units QHS . - Blood glucose well controlled - Continue Accu-checks BID. - Continue Lyrica and Baclofen for neuropathy. -Finger sticks now to be done every 6 hours (07/19/16). Nutrition: status post PEG tube placed initially on 05/03 by LIBBY Faith - 06/09/16: pt complains of irritation/drainage/discomfort at PEG insertion site, tolerating PO intake. - PEG removed 06/09/16 by LIBBY Munson. - Beneprotein discontinued as it had been ordered while/when pt had a PEG tube. Transaminitis: LFTs improved, abdominal pain resolved. - Liver US shows fatty liver. Small stones or tumefactive sludge adherent to one of the gallbladder arcos. Splenomegaly. - Avoid hepatotoxins. - Hepatitis panel negative. 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 - Optifoam in place. - Apply bacitracin. - Wound cultures with normal sherine. - Wound care following, last saw patient 07/03. -Wound care contacted hospitalist team on 07/17/16 requesting d/c of Silvadene and initiation of Silver nitrate to address wound. Orders placed. Morbid Obesity with BMI 51.8 on admission: Encouraged weight loss. As of BMI is 48.4. -BMI is increased to 50.0 on 07/22/16 Left Shoulder Pain: with decreased ROM. - Xrays negative for fracture/dislocations. - Continue PT - Continue pain control with oxycodone 2.5mg po q4h prn Chronic normocytic anemia: -Labs personally reviewed, values effectively unchanged since last draw. -May be secondary to secondary to chronic health issues; may consider vitamin B6/12 evaluation Full code. DVT prophylaxis: Lovenox. Case discussed with pt, RN (Apoorva), and Dr. Bejarano. Discharge Planning No significant change in management. Continue placement efforts. Nilton Riley Jr. Aug 05, 2016 11:52
--- NOTE | 2016-08-05 14:38 | HHI.PR ---
Subjective Remarks 50 YO morbidly obese male s/p RF, Trach On trach collar No distress Awake, follows commands trach secretions clear up in chair Objective Vital Signs Vital Signs Date Time Temp Pulse Resp B/P Pulse Ox O2 Delivery O2 Flow Rate FiO2 08/05/16 12:00 98.4 94 24 118/74 97 08/05/16 09:03 96 T-piece 5.00 28 08/05/16 08:00 98.5 96 22 106/57 96 08/05/16 04:00 97.9 82 20 104/65 97 08/05/16 00:00 98.4 80 18 109/59 95 08/05/16 00:00 Trach Collar 28 08/04/16 20:50 95 T-piece 28 08/04/16 20:00 T-Piece 28 08/04/16 20:00 98.8 88 18 103/60 95 08/04/16 16:00 98.5 90 20 117/73 97 I/O 08/04/16 08/04/16 08/04/16 08/05/16 08/05/16 08/05/16 07:00 15:00 23:00 07:00 15:00 23:00 Intake Total 360 ml 480 ml 720 ml 480 ml Output Total 450 ml 300 ml 300 ml 800 ml Balance -90 ml 180 ml 420 ml -320 ml Intake Oral 360 ml 480 ml 720 ml 480 ml Output Urine Total 450 ml 300 ml 300 ml 800 ml # Bowel Movements 0 0 0 Result Diagram: 08/03/16 0758 08/03/16 0803 Objective Remarks GENERAL: Morbidly obese male trach collar SKIN: Warm and dry. HEAD: Normocephalic. EYES: No scleral icterus. No injection or drainage. NECK: Supple, trachea midline. No JVD or lymphadenopathy. CARDIOVASCULAR: Regular rate and rhythm without murmurs, gallops, or rubs. RESPIRATORY: Breath sounds equal bilaterally. No accessory muscle use. GASTROINTESTINAL: Abdomen soft, non-tender, nondistended. MUSCULOSKELETAL: No cyanosis, or edema. BACK: Nontender without obvious deformity. No CVA tenderness. A/P Assessment and Plan S/P trach ARDS-resolved Pneumonia JACOB PLAN: Trach collar Aerosol nebs Supplement 02 to keep sat >90% Stable from pulm standpoint Stable on trach collar Musa Key MD Aug 05, 2016 14:38
[2016-08-06] VITALS (8 sets, daily range): BP systolic 93–115; BP diastolic 56–64; PULSE 77–97; RESP 18–23; TEMP 98–98.8; O2SAT 94–98
[2016-08-06] MEDS: ARTIFICIAL TEARS OPTH SOLN 15 ML BTL EACH EYE SCH ×6 (01:19→22:00)
[2016-08-06] MEDS: ENOXAPARIN SODIUM 40 MG/0.4 ML SYRINGE SQ SCH ×2 (05:40→17:30)
[2016-08-06] MEDS: BACLOFEN 10 MG TAB PO SCH (08:08)
[2016-08-06] MEDS: PREGABALIN 75 MG CAP PO SCH ×2 (08:08→22:38)
[2016-08-06] MEDS: metFORMIN HCL 500 MG TAB PO SCH ×2 (08:08→17:30)
[2016-08-06] MEDS: PANTOPRAZOLE SOD 40 MG DELAYED RELEASE TAB PO SCH (08:09)
[2016-08-06] MEDS: BETAMETHASONE/CLOTRIMAZOLE CREAM 15 GM TOPICAL SCH ×2 (08:11→21:00)
[2016-08-06] MEDS: NYSTATIN 100,000 U/GM PWD 15 GM BTL TOPICAL SCH ×2 (08:11→21:00)
[2016-08-06] MEDS: DOCUSATE SODIUM 100 MG/10 ML UDC PO SCH ×2 (08:12→21:00)
[2016-08-06] MEDS: SODIUM CHLORIDE 0.9% FLUSH 5 ML FLUSH IVF SCH (08:13)
[2016-08-06] MEDS: RESP: BUDESONIDE 0.5 MG/2 ML NEB NEB SCH ×2 (09:59→20:16)
--- NOTE | 2016-08-06 10:47 | HHI.PR ---
Subjective Remarks Follow-up visit for respiratory failure, status post tracheostomy, DM 2. Patient seen and examined today, sitting up in chair comfortably in no apparent distress. T-piece in place. Denies any acute events overnight. Denies any recent fevers, chills, cough, shortness of breath, chest pain, palpitations, abdominal pain, n/v, dysuria. Patient states that he was unable to tolerate PMV or capping of trach one week ago, has not been attempted since. Patient states he is up for trying again. Objective Vitals Vital Signs Date Time Temp Pulse Resp B/P Pulse Ox O2 Delivery O2 Flow Rate FiO2 08/06/16 10:04 98 T-piece 28 08/06/16 08:03 T-Piece 5.00 08/06/16 08:00 98.3 94 18 98/64 97 08/06/16 04:00 98.0 77 18 96/57 96 08/06/16 04:00 T-Piece 28 08/06/16 00:00 98.2 94 23 115/57 98 08/06/16 00:00 T-Piece 08/05/16 20:24 96 T-piece 28 08/05/16 20:00 T-Piece 08/05/16 20:00 98.1 94 22 105/60 96 08/05/16 16:00 98.9 101 22 114/60 98 08/05/16 12:00 98.4 94 24 118/74 97 I/O 08/05/16 08/05/16 08/05/16 08/06/16 08/06/16 08/06/16 06:59 14:59 22:59 06:59 14:59 22:59 Intake Total 480 ml 600 ml 1200 ml 240 ml Output Total 800 ml 550 ml 400 ml 650 ml Balance -320 ml 50 ml 800 ml -410 ml Intake Oral 480 ml 600 ml 1200 ml 240 ml Output Urine Total 800 ml 550 ml 400 ml 650 ml # Bowel Movements 0 0 0 Result Diagram: 08/03/16 0758 08/03/16 0803 Imaging Last Impressions Chest X-Ray 06/30/16 0600 Signed Impressions: Service Date/Time: Thursday, June 30, 2016 06:07 - CONCLUSION: No significant change. Mild bilateral perihilar and basilar consolidation again noted. Ubaldo Ortiz MD Shoulder X-Ray 06/28/16 0000 Signed Impressions: Service Date/Time: June 15:12 - CONCLUSION: 1. Limited but negative examination of the shoulder. Kyaw Rojo MD Abdomen X-Ray 06/19/16 0000 Signed Impressions: Service Date/Time: Sunday, June 19, 2016 10:43 - CONCLUSION: Gastric tube tip does not cross the diaphragm and the side port is approximately 8 cm above the diaphragm. Chano Goodwin MD Lower Extremity Ultrasound 06/04/16 0000 Signed Impressions: Service Date/Time: Saturday, June 04, 2016 14:54 - CONCLUSION: 1. No DVT identified. Dc Barton MD Liver Ultrasound 05/09/16 0000 Signed Impressions: Service Date/Time: Monday, May 09, 2016 22:28 - CONCLUSION: 1. Enlarged, fatty liver. 2. Small stones or tumefactive sludge adherent to one of the gallbladder arcos. 3. Splenomegaly. 4. Pancreas is obscured by overlying bowel gas and patient's body habitus. Arthur Kennedy MD Chest CT 03/28/16 0836 Signed Impressions: Service Date/Time: Monday, March 28, 2016 09:57 - CONCLUSION: Development areas of air bronchograms and consolidation more prominent in the right and left posterior basilar segments of the lower lobes. ET tube above the chanelle. Bernard Hartman MD CT Angiography 03/24/16 1121 Signed Impressions: Service Date/Time: Thursday, March 24, 2016 12:47 - CONCLUSION: 1. There is respiratory motion artifact but no PE is identified through most of the segmental level pulmonary arteries. 2. Mildly enlarged main pulmonary artery may indicate pulmonary arterial hypertension. 3. 11 mm left lower lobe noncalcified pulmonary nodule. Suggest correlation with any prior imaging studies that could confirm longer-term stability. If none are available consider short-term followup noncontrast chest CT in approximately 3 months. Ubaldo Rodas MD Objective Remarks GENERAL: Morbidly obese, well-developed patient lying in bed with trach collar, in NAD. SKIN: Warm and dry. No rash. HEENT: Normocephalic. Atraumatic. Pupils equal and round. No scleral icterus. No injection or drainage. No nasal bleeding or discharge. Mucous membranes pink and moist. Neck supple. Trachea midline. CARDIOVASCULAR: Regular rate and rhythm. S1, S2 noted. No murmur appreciated. RESPIRATORY: No accessory muscle use. Airway noise noted due to trach collar humidified oxygen. Breath sounds equal bilaterally. GASTROINTESTINAL: Abdomen soft, non-tender, nondistended. Normoactive bowel sounds x 4. MUSCULOSKELETAL: No obvious deformities. Extremities without clubbing, cyanosis , or edema. Dry skin noted to bilateral feet and heels. NEUROLOGICAL: Awake and alert. No obvious cranial nerve deficits. Normal speech. PSYCHIATRIC: Appropriate mood and affect; insight and judgment normal. Procedures 04/30/16 - tracheostomy by Dr. Reyes 05/03/16 - EGD with PEG placement by Dr. Faith 06/09/16 - PEG removal 06/21/16- repeat tracheostomy by Dr. Cuellar Date of Removal: Jun 29, 2016 A/P Problem List: (1) Acute hypercapnic respiratory failure ICD Code: J96.02 Status: Acute (2) Staphylococcus aureus pneumonia ICD Code: J15.211 Status: Acute (3) Encephalopathy ICD Code: G93.40 Status: Acute (4) JACOB (obstructive sleep apnea) ICD Code: G47.33 Status: Acute (5) Diabetes mellitus type 2 in obese ICD Code: E11.9 Status: Acute (6) Morbid obesity with BMI of 50.0-59.9, adult ICD Code: E66.01 Status: Acute (7) Obesity hypoventilation syndrome ICD Code: E66.2 Status: Acute (8) Normocytic anemia ICD Code: D64.9 Status: Chronic Assessment and Plan Mr. Leger is a pleasant 50 year old male with a history of sleep apnea, morbid obesity, DM 2 who was admitted to the hospital on 03/24/2016 due to lightheadedness and dizziness. Initial work up indicated hypercarbia as well as hypoxemia. His O2 sat was 78% in the ED. CTA was negative for PE. He was started on BiPAP. However, due to unsatisfactory response, patient was intubated after neuromuscular paralysis using succinylcholine. Tracheostomy was done on 04/30/2016. Patient remained in the ICU until 05/07/2016. Patient went into acute respiratory failure again on 05/27/2016 and subsequently he was transferred back to ICU. Trach was exchanged on 05/27/2016 and he remained on mechanical ventilation. He was weaned off mechanical ventilation after tolerating CPAP trials. He was placed on T piece trial and tolerated that well. He was subsequently transferred to hospitalist service on 06/05/2016. Acute respiratory failure mixed hypercarbic and hypoxemic Probable obstructive sleep apnea Obesity hypoventilation syndrome - Status post Tracheostomy. - On T-piece, O2 sat stable, trach collar, keep O2 sat > 92%. - Pulmonary following. Dr. Perry (Pulmonary medicine) ordered bipap at night for JACOB. - Continue DuoNeb treatments. - Wayne is now #6, change 07/30/16. - Spoke with Dr. Key today, orders to attempt PMV, if tolerating will cap patient. - Continue budesonide and continue to attempt trach weaning and possible capping. - Continue with physical therapy secondary to deconditioning. Neuropathy Sciatic Pain - Continue Baclofen 5mg daily, Lyrica 75mg bid, with oxycodone 2.5mg PO q4h PRN per pain scale. Diabetes mellitus type 2 with neuropathy - HgbA1c 7.4 in . Goal glucose 140-180. - Hold Levemir 5 units QHS . Start Metformin 500mg BID. - Accu-Cheks BID. - Repeat hemoglobin A1c 5.2. - On metformin and dc Levemir. Pt. not on any insulin at home. Blood sugars well controlled. S/P PEG removed 06/09/[address] Munson. - Patient tolerating PO intake. Transaminitis: LFTs improved, abdominal pain resolved. - Liver US shows fatty liver. Small stones or tumefactive sludge adherent to one of the gallbladder arcos. Splenomegaly. - Avoid hepatotoxins. - Hepatitis panel negative. Wound on anterior neck 2/2 trach collar, stage III: Patient has a short and large neck. - Optifoam in place. - Apply bacitracin. - Wound cultures with normal sherine. - Wound care following, recommended silver nitrate for tracheostomy wound. Continue with dressing changes. Continue to monitor wound. Morbid Obesity with BMI 51.8 on admission: Encouraged weight loss. Current BMI 49.4 -->48.9 Chronic normocytic anemia - Possibly anemia of chronic disease. Stable H&H. Pneumonia with Staph Aureus, resolved. ID signed off. Full code. DVT prophylaxis: Lovenox. Discussed with patient, nursing, Dr. Cosma Discharge Planning Plan to DC home with brother. Motivated to go home. Wean off tracheostomy. Plan to DC home when weaned off. Last CM note 08/01/16 Pt has been declined by [facility] due to pt has become to high functioning for their program. Spoke to pt and he is still planning to return home with brother. Gaby Gupta Aug 06, 2016 10:47 Whitney Bejarano MD Aug 06, 2016 18:31
--- NOTE | 2016-08-06 18:33 | HHI.PR ---
Subjective Remarks 50 YO morbidly obese male s/p RF, Trach On trach collar No distress Awake, follows commands trach secretions clear up in chair No new complaint Objective Vital Signs Vital Signs Date Time Temp Pulse Resp B/P Pulse Ox O2 Delivery O2 Flow Rate FiO2 08/06/16 16:00 98.8 89 18 93/62 98 08/06/16 16:00 T-Piece 6.00 08/06/16 12:00 T-Piece 6.00 08/06/16 12:00 98.6 97 18 102/56 94 08/06/16 10:04 98 T-piece 28 08/06/16 08:03 T-Piece 6.00 08/06/16 08:00 98.3 94 18 98/64 97 08/06/16 04:00 98.0 77 18 96/57 96 08/06/16 04:00 T-Piece 28 08/06/16 00:00 98.2 94 23 115/57 98 08/06/16 00:00 T-Piece 28 08/05/16 20:24 96 T-piece 28 08/05/16 20:00 T-Piece 28 08/05/16 20:00 98.1 94 22 105/60 96 I/O 08/05/16 08/05/16 08/05/16 08/06/16 08/06/16 08/06/16 07:00 15:00 23:00 07:00 15:00 23:00 Intake Total 480 ml 600 ml 1200 ml 240 ml 960 ml Output Total 800 ml 550 ml 400 ml 650 ml 800 ml Balance -320 ml 50 ml 800 ml -410 ml 160 ml Intake Oral 480 ml 600 ml 1200 ml 240 ml 960 ml Output Urine Total 800 ml 550 ml 400 ml 650 ml 800 ml # Bowel Movements 0 0 0 1 Result Diagram: 08/03/16 0758 08/03/16 0803 Objective Remarks GENERAL: Morbidly obese male trach collar SKIN: Warm and dry. HEAD: Normocephalic. EYES: No scleral icterus. No injection or drainage. NECK: Supple, trachea midline. No JVD or lymphadenopathy. CARDIOVASCULAR: Regular rate and rhythm without murmurs, gallops, or rubs. RESPIRATORY: Breath sounds equal bilaterally. No accessory muscle use. GASTROINTESTINAL: Abdomen soft, non-tender, nondistended. MUSCULOSKELETAL: No cyanosis, or edema. BACK: Nontender without obvious deformity. No CVA tenderness. A/P Assessment and Plan S/P trach ARDS-resolved Pneumonia JACOB PLAN: Trach collar Aerosol nebs Supplement 02 to keep sat >90% Stable from pulm standpoint Stable on trach collar PMV trial will FU in AM Musa Key MD Aug 06, 2016 18:33
[2016-08-07] VITALS (8 sets, daily range): BP systolic 98–132; BP diastolic 55–66; PULSE 85–95; RESP 16–22; TEMP 98.1–98.7; O2SAT 94–98
[2016-08-07] MEDS: ARTIFICIAL TEARS OPTH SOLN 15 ML BTL EACH EYE SCH ×6 (02:00→21:11)
[2016-08-07] MEDS: ENOXAPARIN SODIUM 40 MG/0.4 ML SYRINGE SQ SCH ×2 (05:24→17:23)
[2016-08-07] MEDS: PREGABALIN 75 MG CAP PO SCH ×2 (07:46→21:11)
[2016-08-07] MEDS: BACLOFEN 10 MG TAB PO SCH (07:46)
[2016-08-07] MEDS: PANTOPRAZOLE SOD 40 MG DELAYED RELEASE TAB PO SCH (07:46)
[2016-08-07] MEDS: metFORMIN HCL 500 MG TAB PO SCH ×2 (07:46→17:22)
[2016-08-07] MEDS: DOCUSATE SODIUM 100 MG/10 ML UDC PO SCH ×2 (07:47→21:00)
[2016-08-07] MEDS: SODIUM CHLORIDE 0.9% FLUSH 5 ML FLUSH IVF SCH (07:51)
[2016-08-07] MEDS: BETAMETHASONE/CLOTRIMAZOLE CREAM 15 GM TOPICAL SCH ×2 (07:51→21:00)
[2016-08-07] MEDS: NYSTATIN 100,000 U/GM PWD 15 GM BTL TOPICAL SCH ×2 (07:52→21:00)
[2016-08-07] MEDS: RESP: BUDESONIDE 0.5 MG/2 ML NEB NEB SCH ×2 (08:18→18:57)
--- NOTE | 2016-08-07 10:03 | HHI.PR ---
Subjective Remarks Follow-up visit for respiratory failure, status post tracheostomy, DM 2. Patient seen and examined today, sitting up in recliner chair, awake and alert. Sitting comfortably. Denies any new acute complaints. Tolerating PO intake. Currently on t-piece. Passy-josie valve trials ordered today. Denies any recent fever, chills, cough, shortness of breath, headache, dizziness, abdominal pain, n/v, dysuria. Objective Vitals Vital Signs Date Time Temp Pulse Resp B/P Pulse Ox O2 Delivery O2 Flow Rate FiO2 08/07/16 08:21 96 T-piece 6.00 28 08/07/16 08:00 98.2 85 18 109/61 95 08/07/16 06:04 98.4 87 22 98/55 95 08/07/16 00:00 98.1 95 22 116/63 95 08/06/16 20:19 96 T-piece 28 08/06/16 20:00 98.5 87 20 109/62 95 08/06/16 20:00 T-Piece 6.00 28 08/06/16 16:00 98.8 89 18 93/62 98 08/06/16 16:00 T-Piece 6.00 08/06/16 12:00 T-Piece 6.00 08/06/16 12:00 98.6 97 18 102/56 94 08/06/16 10:04 98 T-piece 28 I/O 08/06/16 08/06/16 08/06/16 08/07/16 08/07/16 08/07/16 07:00 15:00 23:00 07:00 15:00 23:00 Intake Total 240 ml 960 ml 240 ml 120 ml Output Total 650 ml 800 ml 225 ml 375 ml Balance -410 ml 160 ml 15 ml -255 ml Intake Oral 240 ml 960 ml 240 ml 120 ml Output Urine Total 650 ml 800 ml 225 ml 375 ml # Bowel Movements 0 1 1 0 Result Diagram: 08/03/16 0758 08/03/16 0803 Objective Remarks GENERAL: Morbidly obese, well-developed patient lying in bed with trach collar, in NAD. SKIN: Warm and dry. No rash. HEENT: Normocephalic. Atraumatic. Pupils equal and round. No scleral icterus. No injection or drainage. No nasal bleeding or discharge. Mucous membranes pink and moist. Neck supple. Trachea midline. CARDIOVASCULAR: Regular rate and rhythm. S1, S2 noted. No murmur appreciated. RESPIRATORY: No accessory muscle use. Airway noise noted due to trach collar humidified oxygen. Breath sounds equal bilaterally. GASTROINTESTINAL: Abdomen soft, non-tender, nondistended. Normoactive bowel sounds x 4. MUSCULOSKELETAL: No obvious deformities. Extremities without clubbing, cyanosis , or edema. Dry skin noted to bilateral feet and heels. NEUROLOGICAL: Awake and alert. No obvious cranial nerve deficits. Normal speech. PSYCHIATRIC: Appropriate mood and affect; insight and judgment normal. Procedures 04/30/16 - tracheostomy by Dr. Reyes 05/03/16 - EGD with PEG placement by Dr. Faith 06/09/16 - PEG removal 06/21/16- repeat tracheostomy by Dr. Cuellar Date of Removal: Jun 29, 2016 A/P Problem List: (1) Acute hypercapnic respiratory failure ICD Code: J96.02 Status: Acute (2) Staphylococcus aureus pneumonia ICD Code: J15.211 Status: Acute (3) Encephalopathy ICD Code: G93.40 Status: Acute (4) JACOB (obstructive sleep apnea) ICD Code: G47.33 Status: Acute (5) Diabetes mellitus type 2 in obese ICD Code: E11.9 Status: Acute (6) Morbid obesity with BMI of 50.0-59.9, adult ICD Code: E66.01 Status: Acute (7) Obesity hypoventilation syndrome ICD Code: E66.2 Status: Acute (8) Normocytic anemia ICD Code: D64.9 Status: Chronic Assessment and Plan Mr. Leger is a pleasant 50 year old male with a history of sleep apnea, morbid obesity, DM 2 who was admitted to the hospital on 03/24/2016 due to lightheadedness and dizziness. Initial work up indicated hypercarbia as well as hypoxemia. His O2 sat was 78% in the ED. CTA was negative for PE. He was started on BiPAP. However, due to unsatisfactory response, patient was intubated after neuromuscular paralysis using succinylcholine. Tracheostomy was done on 04/30/2016. Patient remained in the ICU until 05/07/2016. Patient went into acute respiratory failure again on 05/27/2016 and subsequently he was transferred back to ICU. Trach was exchanged on 05/27/2016 and he remained on mechanical ventilation. He was weaned off mechanical ventilation after tolerating CPAP trials. He was placed on T piece trial and tolerated that well. He was subsequently transferred to hospitalist service on 06/05/2016. Acute respiratory failure mixed hypercarbic and hypoxemic Probable obstructive sleep apnea Obesity hypoventilation syndrome - Status post Tracheostomy. - On T-piece, O2 sat stable, trach collar, keep O2 sat > 92%. - Pulmonary following. Dr. Perry (Pulmonary medicine) ordered bipap at night for JACOB. - Continue DuoNeb treatments. - Wayne is now #6, changed 07/30/16. - Orders to please attempt PMV, if tolerating will cap patient. Respiratory called and updated as well as bedside RN. - Continue budesonide and continue to attempt trach weaning and possible capping. - Continue with physical therapy secondary to deconditioning. Neuropathy Sciatic Pain - Continue Baclofen 5mg daily, Lyrica 75mg bid, with oxycodone 2.5mg PO q4h PRN per pain scale. Diabetes mellitus type 2 with neuropathy - HgbA1c 7.4 in . Goal glucose 140-180. - Hold Levemir 5 units QHS . Start Metformin 500mg BID. - Accu-Cheks BID. - Repeat hemoglobin A1c 5.2. - On metformin and dc Levemir. Pt. not on any insulin at home. Blood sugars well controlled. S/P PEG removed 06/09/[address] Munson. - Patient tolerating PO intake. Transaminitis: LFTs improved, abdominal pain resolved. - Liver US shows fatty liver. Small stones or tumefactive sludge adherent to one of the gallbladder arcos. Splenomegaly. - Avoid hepatotoxins. - Hepatitis panel negative. Wound on anterior neck 2/2 trach collar, stage III: Patient has a short and large neck. - Optifoam in place. - Apply bacitracin. - Wound cultures with normal sherine. - Wound care following, recommended silver nitrate for tracheostomy wound. Continue with dressing changes. Continue to monitor wound. Morbid Obesity with BMI 51.8 on admission: Encouraged weight loss. Current BMI 49.4 -->48.9 Chronic normocytic anemia - Possibly anemia of chronic disease. Stable H&H. Full code. DVT prophylaxis: Lovenox. Discussed with patient, nursing, Dr. Bejarano Discharge Planning Plan to DC home with brother. Motivated to go home. Wean off tracheostomy. Plan to DC home when weaned off. Last CM note 08/01/16 Pt has been declined by [facility] due to pt has become to high functioning for their program. Spoke to pt and he is still planning to return home with brother. Gaby Gupta Aug 07, 2016 10:03
--- NOTE | 2016-08-07 19:23 | HHI.PR ---
Subjective Remarks 50 YO morbidly obese male s/p RF, Trach On trach collar No distress Awake, follows commands trach secretions clear No new complaint Objective Vital Signs Vital Signs Date Time Temp Pulse Resp B/P Pulse Ox O2 Delivery O2 Flow Rate FiO2 08/07/16 18:57 98 T-piece 6.00 28 08/07/16 16:00 98.7 95 18 102/55 98 08/07/16 12:00 T-Piece 6.00 08/07/16 12:00 98.1 92 18 132/66 94 08/07/16 08:21 96 T-piece 6.00 28 08/07/16 08:00 98.2 85 18 109/61 95 08/07/16 08:00 T-Piece 6.00 08/07/16 06:04 98.4 87 22 98/55 95 08/07/16 00:00 98.1 95 22 116/63 95 08/06/16 20:19 96 T-piece 28 08/06/16 20:00 98.5 87 20 109/62 95 08/06/16 20:00 T-Piece 6.00 28 I/O 08/06/16 08/06/16 08/06/16 08/07/16 08/07/16 08/07/16 07:00 15:00 23:00 07:00 15:00 23:00 Intake Total 240 ml 960 ml 240 ml 120 ml 720 ml Output Total 650 ml 800 ml 225 ml 375 ml 300 ml Balance -410 ml 160 ml 15 ml -255 ml 420 ml Intake Oral 240 ml 960 ml 240 ml 120 ml 720 ml Output Urine Total 650 ml 800 ml 225 ml 375 ml 300 ml # Bowel Movements 0 1 1 0 0 Result Diagram: 08/03/16 0758 08/03/16 0803 Objective Remarks GENERAL: Morbidly obese male trach collar SKIN: Warm and dry. HEAD: Normocephalic. EYES: No scleral icterus. No injection or drainage. NECK: Supple, trachea midline. No JVD or lymphadenopathy. CARDIOVASCULAR: Regular rate and rhythm without murmurs, gallops, or rubs. RESPIRATORY: Breath sounds equal bilaterally. No accessory muscle use. GASTROINTESTINAL: Abdomen soft, non-tender, nondistended. MUSCULOSKELETAL: No cyanosis, or edema. BACK: Nontender without obvious deformity. No CVA tenderness. A/P Assessment and Plan S/P trach ARDS-resolved Pneumonia JACOB PLAN: Trach collar Aerosol nebs Supplement 02 to keep sat >90% Stable from pulm standpoint Stable on trach collar PMV trial Musa Key MD Aug 07, 2016 19:23
[2016-08-08] VITALS (9 sets, daily range): BP systolic 100–115; BP diastolic 55–69; PULSE 80–98; RESP 18; TEMP 97.7–98.8; O2SAT 94–100
[2016-08-08] MEDS: ARTIFICIAL TEARS OPTH SOLN 15 ML BTL EACH EYE SCH ×6 (02:00→20:12)
[2016-08-08] MEDS: ENOXAPARIN SODIUM 40 MG/0.4 ML SYRINGE SQ SCH ×2 (05:54→18:12)
[2016-08-08] MEDS: ACETAMINOPHEN 650 MG/20.3 ML UDC PO PRN (05:54)
[2016-08-08] MEDS: RESP: BUDESONIDE 0.5 MG/2 ML NEB NEB SCH ×2 (08:04→20:25)
[2016-08-08] MEDS: BETAMETHASONE/CLOTRIMAZOLE CREAM 15 GM TOPICAL SCH ×2 (08:36→20:12)
[2016-08-08] MEDS: SODIUM CHLORIDE 0.9% FLUSH 5 ML FLUSH IVF SCH (08:36)
[2016-08-08] MEDS: NYSTATIN 100,000 U/GM PWD 15 GM BTL TOPICAL SCH ×2 (08:37→20:12)
[2016-08-08] MEDS: PANTOPRAZOLE SOD 40 MG DELAYED RELEASE TAB PO SCH (08:52)
[2016-08-08] MEDS: DOCUSATE SODIUM 100 MG/10 ML UDC PO SCH ×2 (08:52→20:11)
[2016-08-08] MEDS: PREGABALIN 75 MG CAP PO SCH ×2 (08:53→20:11)
[2016-08-08] MEDS: BACLOFEN 10 MG TAB PO SCH (08:53)
[2016-08-08] MEDS: metFORMIN HCL 500 MG TAB PO SCH ×2 (08:53→18:12)
--- NOTE | 2016-08-08 12:31 | HHI.PR ---
Subjective Remarks Follow-up visit for respiratory failure, status post tracheostomy, DM 2. Patient seen and examined today. Patient sitting up in chair with PMV in place, tolerating well. Ambulating halls with walker. Denies any new complaints. Feeling very well. Denies any fever, chills, headache, cough, shortness of breath, abdominal pain, n/v, dysuria. Tolerating PO intake. Afebrile. Objective Vitals Vital Signs Date Time Temp Pulse Resp B/P Pulse Ox O2 Delivery O2 Flow Rate FiO2 08/08/16 12:00 98.4 89 18 112/67 100 08/08/16 10:05 18 08/08/16 08:50 T-Piece 6.00 28 08/08/16 08:04 94 T-piece 6.00 28 08/08/16 08:00 97.7 82 18 100/60 94 08/08/16 04:00 98.1 80 18 110/57 94 08/08/16 00:00 98.3 83 18 115/55 96 08/08/16 00:00 T-Piece 6.00 28 08/07/16 20:00 98.7 87 16 112/59 94 08/07/16 20:00 T-Piece 6.00 28 08/07/16 18:57 98 T-piece 6.00 28 08/07/16 16:00 98.7 95 18 102/55 98 I/O 08/07/16 08/07/16 08/07/16 08/08/16 08/08/16 08/08/16 06:59 14:59 22:59 06:59 14:59 22:59 Intake Total 120 ml 720 ml 0 ml 0 ml Output Total 375 ml 300 ml 499 ml 500 ml Balance -255 ml 420 ml -499 ml -500 ml Intake Oral 120 ml 720 ml 0 ml 0 ml Output Urine Total 375 ml 300 ml 499 ml 500 ml # Bowel Movements 0 0 0 0 Imaging Last Impressions Chest X-Ray 06/30/16 0600 Signed Impressions: Service Date/Time: Thursday, June 30, 2016 06:07 - CONCLUSION: No significant change. Mild bilateral perihilar and basilar consolidation again noted. Ubaldo Ortiz MD Shoulder X-Ray 06/28/16 0000 Signed Impressions: Service Date/Time: June 15:12 - CONCLUSION: 1. Limited but negative examination of the shoulder. Kyaw Rojo MD Abdomen X-Ray 06/19/16 0000 Signed Impressions: Service Date/Time: Sunday, June 19, 2016 10:43 - CONCLUSION: Gastric tube tip does not cross the diaphragm and the side port is approximately 8 cm above the diaphragm. Chano Goodwin MD Lower Extremity Ultrasound 06/04/16 0000 Signed Impressions: Service Date/Time: Saturday, June 04, 2016 14:54 - CONCLUSION: 1. No DVT identified. Dc Barton MD Liver Ultrasound 05/09/16 0000 Signed Impressions: Service Date/Time: Monday, May 09, 2016 22:28 - CONCLUSION: 1. Enlarged, fatty liver. 2. Small stones or tumefactive sludge adherent to one of the gallbladder arcos. 3. Splenomegaly. 4. Pancreas is obscured by overlying bowel gas and patient's body habitus. Arthur Kennedy MD Chest CT 03/28/16 0836 Signed Impressions: Service Date/Time: Monday, March 28, 2016 09:57 - CONCLUSION: Development areas of air bronchograms and consolidation more prominent in the right and left posterior basilar segments of the lower lobes. ET tube above the chanelle. Bernard Hartman MD CT Angiography 03/24/16 1121 Signed Impressions: Service Date/Time: Thursday, March 24, 2016 12:47 - CONCLUSION: 1. There is respiratory motion artifact but no PE is identified through most of the segmental level pulmonary arteries. 2. Mildly enlarged main pulmonary artery may indicate pulmonary arterial hypertension. 3. 11 mm left lower lobe noncalcified pulmonary nodule. Suggest correlation with any prior imaging studies that could confirm longer-term stability. If none are available consider short-term followup noncontrast chest CT in approximately 3 months. Ubaldo Rodas MD Objective Remarks GENERAL: Morbidly obese, well-developed patient sitting up in chair comfortably , PMV In place. SKIN: Warm and dry. No rash. HEENT: Normocephalic. Atraumatic. Pupils equal and round. No scleral icterus. No injection or drainage. No nasal bleeding or discharge. Mucous membranes pink and moist. Neck supple. Trachea midline. CARDIOVASCULAR: Regular rate and rhythm. S1, S2 noted. No murmur appreciated. RESPIRATORY: No accessory muscle use. Breath sounds diminished in bases. Breath sounds equal bilaterally. GASTROINTESTINAL: Abdomen soft, non-tender, nondistended. Normoactive bowel sounds x 4. MUSCULOSKELETAL: No obvious deformities. Extremities without clubbing, cyanosis , or edema. Dry skin noted to bilateral feet and heels. NEUROLOGICAL: Awake and alert. No obvious cranial nerve deficits. Normal speech. PSYCHIATRIC: Appropriate mood and affect; insight and judgment normal. Procedures 04/30/16 - tracheostomy by Dr. Reyes 05/03/16 - EGD with PEG placement by Dr. Faith 06/09/16 - PEG removal 06/21/16- repeat tracheostomy by Dr. Cuellar Date of Removal: Jun 29, 2016 A/P Problem List: (1) Acute hypercapnic respiratory failure ICD Code: J96.02 Status: Acute (2) Staphylococcus aureus pneumonia ICD Code: J15.211 Status: Acute (3) Encephalopathy ICD Code: G93.40 Status: Acute (4) JACOB (obstructive sleep apnea) ICD Code: G47.33 Status: Acute (5) Diabetes mellitus type 2 in obese ICD Code: E11.9 Status: Acute (6) Morbid obesity with BMI of 50.0-59.9, adult ICD Code: E66.01 Status: Acute (7) Obesity hypoventilation syndrome ICD Code: E66.2 Status: Acute (8) Normocytic anemia ICD Code: D64.9 Status: Chronic Assessment and Plan Mr. Leger is a pleasant 50 year old male with a history of sleep apnea, morbid obesity, DM 2 who was admitted to the hospital on 03/24/2016 due to lightheadedness and dizziness. Initial work up indicated hypercarbia as well as hypoxemia. His O2 sat was 78% in the ED. CTA was negative for PE. He was started on BiPAP. However, due to unsatisfactory response, patient was intubated after neuromuscular paralysis using succinylcholine. Tracheostomy was done on 04/30/2016. Patient remained in the ICU until 05/07/2016. Patient went into acute respiratory failure again on 05/27/2016 and subsequently he was transferred back to ICU. Trach was exchanged on 05/27/2016 and he remained on mechanical ventilation. He was weaned off mechanical ventilation after tolerating CPAP trials. He was placed on T piece trial and tolerated that well. He was subsequently transferred to hospitalist service on 06/05/2016. Acute respiratory failure mixed hypercarbic and hypoxemic Probable obstructive sleep apnea Obesity hypoventilation syndrome - Status post Tracheostomy. - Pulmonary following. Dr. Perry (Pulmonary medicine) ordered bipap at night for JACOB. - Continue DuoNeb treatments. - Wayne is now #6, changed 07/30/16. - Tolerating PMV most of the day. Plan to cap trach tomorrow. Patient very motivated. - Continue budesonide and continue to attempt trach weaning and possible capping. - Continue with physical therapy secondary to deconditioning. Neuropathy Sciatic Pain - Continue Baclofen 5mg daily, Lyrica 75mg bid, with oxycodone 2.5mg PO q4h PRN per pain scale. Diabetes mellitus type 2 with neuropathy - HgbA1c 7.4 in . Goal glucose 140-180. - Hold Levemir 5 units QHS . Start Metformin 500mg BIDPC. - Accu-Cheks BID. - Repeat hemoglobin A1c 5.2. - On metformin and dc Levemir. Pt. not on any insulin at home. Blood sugars well controlled. Transaminitis: LFTs improved, abdominal pain resolved. - Liver US shows fatty liver. Small stones or tumefactive sludge adherent to one of the gallbladder arcos. Splenomegaly. - Avoid hepatotoxins. - Hepatitis panel negative. Wound on anterior neck 2/2 trach collar, stage III: Patient has a short and large neck. - Optifoam in place. - Apply bacitracin. - Wound cultures with normal sherine. - Wound care following, recommended silver nitrate for tracheostomy wound. Continue with dressing changes. Continue to monitor wound. Morbid Obesity with BMI 51.8 on admission: Encouraged weight loss. Current BMI 49.4 -->48.8 Chronic normocytic anemia - Possibly anemia of chronic disease. Stable H&H. Full code. DVT prophylaxis: Lovenox. Discussed with patient, nursing, Dr. Bejarano Discharge Planning Plan to DC home with brother. Motivated to go home. Wean off tracheostomy. Plan to DC home when weaned off. Last CM note 08/01/16 Pt has been declined by [facility] due to pt has become to high functioning for their program. Spoke to pt and he is still planning to return home with brother. Gaby Gupta Aug 08, 2016 12:31
--- NOTE | 2016-08-08 16:13 | HHI.PR ---
Subjective Remarks respiratory failure DOING WELL , now on O2 nc Objective Vital Signs Date Time Temp Pulse Resp B/P Pulse Ox O2 Delivery O2 Flow Rate FiO2 08/08/16 16:00 98.2 94 18 107/69 97 08/08/16 12:00 98.4 89 18 112/67 100 08/08/16 10:05 18 08/08/16 08:50 T-Piece 6.00 28 08/08/16 08:04 94 T-piece 6.00 28 08/08/16 08:00 97.7 82 18 100/60 94 08/08/16 04:00 98.1 80 18 110/57 94 08/08/16 00:00 98.3 83 18 115/55 96 08/08/16 00:00 T-Piece 6.00 28 08/07/16 20:00 98.7 87 16 112/59 94 08/07/16 20:00 T-Piece 6.00 28 08/07/16 18:57 98 T-piece 6.00 28 I/O 08/07/16 08/07/16 08/07/16 08/08/16 08/08/16 08/08/16 07:00 15:00 23:00 07:00 15:00 23:00 Intake Total 120 ml 720 ml 0 ml 0 ml Output Total 375 ml 300 ml 499 ml 500 ml Balance -255 ml 420 ml -499 ml -500 ml Intake Oral 120 ml 720 ml 0 ml 0 ml Output Urine Total 375 ml 300 ml 499 ml 500 ml # Bowel Movements 0 0 0 0 Procedures 04/30/16 - tracheostomy by Dr. Reyes 05/03/16 - EGD with PEG placement by Dr. Faith 06/09/16 - PEG removal 06/21/16- repeat tracheostomy by Dr. Cuellar Objective Remarks GENERAL: SKIN: Warm and dry.on vent support HEAD: Atraumatic. Normocephalic. EYES: Pupils equal and round. No scleral icterus. No injection or drainage. ENT: No nasal bleeding or discharge. Mucous membranes pink and moist. NECK: Trachea midline. No JVD. CARDIOVASCULAR: Regular rate and rhythm. RESPIRATORY: No accessory muscle use. Clear to auscultation. Breath sounds equal bilaterally. GASTROINTESTINAL: Abdomen soft, non-tender, nondistended. Hepatic and splenic margins not palpable. MUSCULOSKELETAL: Extremities without clubbing, cyanosis, or edema. No obvious deformities. NEUROLOGICAL: Awake and alert. No obvious cranial nerve deficits.right hemiplegia Assessment and Plan Assessment and Plan respiratory failure ,S/P TRCHEOSTOMY morbid obesity probable JACOB VS CSA plan O2 NEEDED pulm toilet prognosis guarded Orlando Perry MD Aug 08, 2016 16:13
[2016-08-08 17:26] LABS: BLOOD GAS CARBOXYHEMOGLOBIN 1.3 % (0-4); BLOOD GAS HCO3 28 mmol/L (22-26); BLOOD GAS METHEMOGLOBIN 0.9 % (0-2); BLOOD GAS O2 HGB SATURATION 92 % (90-100); BLOOD GAS OXYGEN CONTENT 15.8 Vol % (12.0-20.0); BLOOD GAS PCO2 45 mmHg (38-42); BLOOD GAS PO2 73 mmHg (61-120); BLOOD GAS TOTAL HGB 12.1 G/DL (12.0-16.0); CRITICAL VALUE NO; DRAW SITE LT RADIAL; FIO2 21 %; NUMBER OF ARTERIAL PUNCTURES 1; TEMP CORR TO 98.6; ULNAR PULSE PRESENT
[2016-08-08 17:27] LABS: STAT NO
[2016-08-09] VITALS (8 sets, daily range): BP systolic 95–138; BP diastolic 52–79; PULSE 73–92; RESP 18–20; TEMP 97.7–98; O2SAT 93–99
[2016-08-09] MEDS: ARTIFICIAL TEARS OPTH SOLN 15 ML BTL EACH EYE SCH ×6 (02:00→21:19)
[2016-08-09] MEDS: ENOXAPARIN SODIUM 40 MG/0.4 ML SYRINGE SQ SCH ×2 (05:56→17:00)
--- NOTE | 2016-08-09 08:27 | HHI.PR ---
Subjective Remarks respiratory failure DOING WELL , now on O2 nc Objective Vital Signs Date Time Temp Pulse Resp B/P Pulse Ox O2 Delivery O2 Flow Rate FiO2 08/09/16 05:30 97.7 87 18 97/54 93 08/08/16 23:50 97.9 87 18 104/59 95 08/08/16 21:10 98.8 98 18 106/55 96 08/08/16 20:27 98 T-piece 6.00 28 08/08/16 20:00 T-Piece 6.00 28 08/08/16 16:00 98.2 94 18 107/69 97 08/08/16 12:00 98.4 89 18 112/67 100 08/08/16 10:05 18 08/08/16 08:50 T-Piece 6.00 28 I/O 08/08/16 08/08/16 08/08/16 08/09/16 08/09/16 08/09/16 07:00 15:00 23:00 07:00 15:00 23:00 Intake Total 0 ml 480 ml 0 ml Output Total 500 ml 100 ml 100 ml Balance -500 ml 380 ml -100 ml Intake Oral 0 ml 480 ml 0 ml Output Urine Total 500 ml 100 ml 100 ml # Bowel Movements 0 0 0 Procedures 04/30/16 - tracheostomy by Dr. Reyes 05/03/16 - EGD with PEG placement by Dr. Faith 06/09/16 - PEG removal 06/21/16- repeat tracheostomy by Dr. Cuellar Objective Remarks GENERAL: SKIN: Warm and dry.on vent support HEAD: Atraumatic. Normocephalic. EYES: Pupils equal and round. No scleral icterus. No injection or drainage. ENT: No nasal bleeding or discharge. Mucous membranes pink and moist. NECK: Trachea midline. No JVD. CARDIOVASCULAR: Regular rate and rhythm. RESPIRATORY: No accessory muscle use. Clear to auscultation. Breath sounds equal bilaterally. GASTROINTESTINAL: Abdomen soft, non-tender, nondistended. Hepatic and splenic margins not palpable. MUSCULOSKELETAL: Extremities without clubbing, cyanosis, or edema. No obvious deformities. NEUROLOGICAL: Awake and alert. No obvious cranial nerve deficits.right hemiplegia Assessment and Plan Assessment and Plan respiratory failure ,S/P TRCHEOSTOMY morbid obesity probable JACOB VS CSA plan O2 NEEDED pulm toilet prognosis guarded Orlando Perry MD Aug 09, 2016 08:27
[2016-08-09] MEDS: BETAMETHASONE/CLOTRIMAZOLE CREAM 15 GM TOPICAL SCH ×2 (09:00→21:00)
[2016-08-09] MEDS: NYSTATIN 100,000 U/GM PWD 15 GM BTL TOPICAL SCH ×2 (09:00→21:00)
[2016-08-09] MEDS: SODIUM CHLORIDE 0.9% FLUSH 5 ML FLUSH IVF SCH (09:00)
[2016-08-09] MEDS: DOCUSATE SODIUM 100 MG/10 ML UDC PO SCH ×2 (09:00→21:00)
[2016-08-09] MEDS: RESP: BUDESONIDE 0.5 MG/2 ML NEB NEB SCH (09:07)
[2016-08-09] MEDS: PANTOPRAZOLE SOD 40 MG DELAYED RELEASE TAB PO SCH (09:20)
[2016-08-09] MEDS: metFORMIN HCL 500 MG TAB PO SCH ×2 (09:20→16:58)
[2016-08-09] MEDS: PREGABALIN 75 MG CAP PO SCH ×2 (09:20→21:20)
[2016-08-09] MEDS: BACLOFEN 10 MG TAB PO SCH (09:21)
--- NOTE | 2016-08-09 12:36 | HHI.PR ---
Subjective Remarks Follow-up visit for respiratory failure, status post tracheostomy, DM 2. Patient seen and examined today. Sitting up in chair. PMV in place, has tolerated most of the day yesterday and this am. Patient states that he became anxious when capped completely this am. Denies any new acute events overnight. Tolerating PO intake. Afebrile. VSS. Objective Vitals Vital Signs Date Time Temp Pulse Resp B/P Pulse Ox O2 Delivery O2 Flow Rate FiO2 08/09/16 09:12 97 08/09/16 09:00 21 08/09/16 05:30 97.7 87 18 97/54 93 08/08/16 23:50 97.9 87 18 104/59 95 08/08/16 21:10 98.8 98 18 106/55 96 08/08/16 20:27 98 T-piece 6.00 28 08/08/16 20:00 T-Piece 6.00 28 08/08/16 16:00 98.2 94 18 107/69 97 I/O 08/08/16 08/08/16 08/08/16 08/09/16 08/09/16 08/09/16 07:00 15:00 23:00 07:00 15:00 23:00 Intake Total 0 ml 480 ml 0 ml Output Total 500 ml 100 ml 100 ml Balance -500 ml 380 ml -100 ml Intake Oral 0 ml 480 ml 0 ml Output Urine Total 500 ml 100 ml 100 ml # Bowel Movements 0 0 0 Imaging Last Impressions Chest X-Ray 06/30/16 0600 Signed Impressions: Service Date/Time: Thursday, June 30, 2016 06:07 - CONCLUSION: No significant change. Mild bilateral perihilar and basilar consolidation again noted. Ubaldo Ortiz MD Shoulder X-Ray 06/28/16 0000 Signed Impressions: Service Date/Time: June 15:12 - CONCLUSION: 1. Limited but negative examination of the shoulder. Kyaw Rojo MD Abdomen X-Ray 06/19/16 0000 Signed Impressions: Service Date/Time: Sunday, June 19, 2016 10:43 - CONCLUSION: Gastric tube tip does not cross the diaphragm and the side port is approximately 8 cm above the diaphragm. Chano Goodwin MD Lower Extremity Ultrasound 06/04/16 0000 Signed Impressions: Service Date/Time: Saturday, June 04, 2016 14:54 - CONCLUSION: 1. No DVT identified. Dc Barton MD Liver Ultrasound 05/09/16 0000 Signed Impressions: Service Date/Time: Monday, May 09, 2016 22:28 - CONCLUSION: 1. Enlarged, fatty liver. 2. Small stones or tumefactive sludge adherent to one of the gallbladder arcos. 3. Splenomegaly. 4. Pancreas is obscured by overlying bowel gas and patient's body habitus. Arthur Kennedy MD Chest CT 03/28/16 0836 Signed Impressions: Service Date/Time: Monday, March 28, 2016 09:57 - CONCLUSION: Development areas of air bronchograms and consolidation more prominent in the right and left posterior basilar segments of the lower lobes. ET tube above the chanelle. Bernard Hartman MD CT Angiography 03/24/16 1121 Signed Impressions: Service Date/Time: Thursday, March 24, 2016 12:47 - CONCLUSION: 1. There is respiratory motion artifact but no PE is identified through most of the segmental level pulmonary arteries. 2. Mildly enlarged main pulmonary artery may indicate pulmonary arterial hypertension. 3. 11 mm left lower lobe noncalcified pulmonary nodule. Suggest correlation with any prior imaging studies that could confirm longer-term stability. If none are available consider short-term followup noncontrast chest CT in approximately 3 months. Ubaldo Rodas MD Objective Remarks GENERAL: Morbidly obese, well-developed patient sitting up in chair comfortably , PMV In place. SKIN: Warm and dry. No rash. HEENT: Normocephalic. Atraumatic. Pupils equal and round. No scleral icterus. No injection or drainage. No nasal bleeding or discharge. Mucous membranes pink and moist. Neck supple. Trachea midline. CARDIOVASCULAR: Regular rate and rhythm. S1, S2 noted. No murmur appreciated. RESPIRATORY: No accessory muscle use. Breath sounds diminished in bases. Breath sounds equal bilaterally. GASTROINTESTINAL: Abdomen soft, non-tender, nondistended. Normoactive bowel sounds x 4. MUSCULOSKELETAL: No obvious deformities. Extremities without clubbing, cyanosis , or edema. Dry skin noted to bilateral feet and heels. NEUROLOGICAL: Awake and alert. No obvious cranial nerve deficits. Normal speech. PSYCHIATRIC: Appropriate mood and affect; insight and judgment normal. Procedures 04/30/16 - tracheostomy by Dr. Reyes 05/03/16 - EGD with PEG placement by Dr. Faith 06/09/16 - PEG removal 06/21/16- repeat tracheostomy by Dr. Cuellar Date of Removal: Jun 29, 2016 A/P Problem List: (1) Acute hypercapnic respiratory failure ICD Code: J96.02 Status: Acute (2) Staphylococcus aureus pneumonia ICD Code: J15.211 Status: Acute (3) Encephalopathy ICD Code: G93.40 Status: Acute (4) JACOB (obstructive sleep apnea) ICD Code: G47.33 Status: Acute (5) Diabetes mellitus type 2 in obese ICD Code: E11.9 Status: Acute (6) Morbid obesity with BMI of 50.0-59.9, adult ICD Code: E66.01 Status: Acute (7) Obesity hypoventilation syndrome ICD Code: E66.2 Status: Acute (8) Normocytic anemia ICD Code: D64.9 Status: Chronic Assessment and Plan Mr. Leger is a pleasant 50 year old male with a history of sleep apnea, morbid obesity, DM 2 who was admitted to the hospital on 03/24/2016 due to lightheadedness and dizziness. Initial work up indicated hypercarbia as well as hypoxemia. His O2 sat was 78% in the ED. CTA was negative for PE. He was started on BiPAP. However, due to unsatisfactory response, patient was intubated after neuromuscular paralysis using succinylcholine. Tracheostomy was done on 04/30/2016. Patient remained in the ICU until 05/07/2016. Patient went into acute respiratory failure again on 05/27/2016 and subsequently he was transferred back to ICU. Trach was exchanged on 05/27/2016 and he remained on mechanical ventilation. He was weaned off mechanical ventilation after tolerating CPAP trials. He was placed on T piece trial and tolerated that well. He was subsequently transferred to hospitalist service on 06/05/2016. Acute respiratory failure mixed hypercarbic and hypoxemic Probable obstructive sleep apnea Obesity hypoventilation syndrome - Status post Tracheostomy. - Pulmonary following. Dr. Perry (Pulmonary medicine) ordered bipap at night for JACOB. - Continue DuoNeb treatments. - Wayne is now #6, changed 07/30/16. - Tolerating PMV most of the day. Cap as tolerated. - Continue budesonide and continue to attempt trach weaning and possible capping. - Continue with physical therapy secondary to deconditioning. Neuropathy Sciatic Pain - Continue Baclofen 5mg daily, Lyrica 75mg bid, with oxycodone 2.5mg PO q4h PRN per pain scale. Diabetes mellitus type 2 with neuropathy - HgbA1c 7.4 in . Goal glucose 140-180. - Hold Levemir 5 units QHS . Start Metformin 500mg BIDPC. - Accu-Cheks BID. - Repeat hemoglobin A1c 5.2. - On metformin and dc Levemir. Pt. not on any insulin at home. Blood sugars well controlled. Transaminitis: LFTs improved, abdominal pain resolved. - Liver US shows fatty liver. Small stones or tumefactive sludge adherent to one of the gallbladder arcos. Splenomegaly. - Avoid hepatotoxins. - Hepatitis panel negative. 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 - Optifoam in place. - Apply bacitracin. - Wound cultures with normal sherine. - Wound care following, recommended silver nitrate for tracheostomy wound. Continue with dressing changes. Continue to monitor wound. Morbid Obesity with BMI 51.8 on admission: Encouraged weight loss. Current BMI 49.4 -->48.8 Chronic normocytic anemia - Possibly anemia of chronic disease. Stable H&H. Full code. DVT prophylaxis: Lovenox. Discussed with patient, nursing, Dr. Bejarano Discharge Planning Plan to DC home with brother. Motivated to go home. Wean off tracheostomy. Plan to DC home when weaned off. Last CM note 08/01/16 Pt has been declined by [facility] due to pt has become to high functioning for their program. Spoke to pt and he is still planning to return home with brother. Gaby Gupta Aug 09, 2016 12:36
[2016-08-10] VITALS (7 sets, daily range): BP systolic 94–135; BP diastolic 55–71; PULSE 84–101; RESP 18–20; TEMP 97.7–98.2; O2SAT 92–99
[2016-08-10] MEDS: ARTIFICIAL TEARS OPTH SOLN 15 ML BTL EACH EYE SCH ×6 (02:00→20:07)
[2016-08-10] MEDS: ENOXAPARIN SODIUM 40 MG/0.4 ML SYRINGE SQ SCH ×2 (05:49→17:08)
[2016-08-10] MEDS: metFORMIN HCL 500 MG TAB PO SCH ×2 (08:47→17:07)
[2016-08-10] MEDS: DOCUSATE SODIUM 100 MG/10 ML UDC PO SCH ×2 (08:47→20:06)
[2016-08-10] MEDS: SODIUM CHLORIDE 0.9% FLUSH 5 ML FLUSH IVF SCH (08:48)
[2016-08-10] MEDS: PREGABALIN 75 MG CAP PO SCH ×2 (08:48→20:05)
[2016-08-10] MEDS: PANTOPRAZOLE SOD 40 MG DELAYED RELEASE TAB PO SCH (08:48)
[2016-08-10] MEDS: BETAMETHASONE/CLOTRIMAZOLE CREAM 15 GM TOPICAL SCH ×2 (08:48→20:07)
[2016-08-10] MEDS: BACLOFEN 10 MG TAB PO SCH (08:48)
[2016-08-10] MEDS: NYSTATIN 100,000 U/GM PWD 15 GM BTL TOPICAL SCH ×2 (08:49→20:07)
--- NOTE | 2016-08-10 09:40 | HHI.PR ---
Subjective Remarks Patient could not tolerated capping, he dd felt anxious. Pulm following. He denies feeling short of breath, no fever, chills. Denies any chest pain. He is walking with a walker Objective Vitals Vital Signs Date Time Temp Pulse Resp B/P Pulse Ox O2 Delivery O2 Flow Rate FiO2 08/10/16 08:03 99 21 08/10/16 08:00 97.7 94 20 135/71 92 08/10/16 05:34 84 18 94/55 97 08/09/16 23:55 97.8 87 18 95/52 98 08/09/16 21:04 97.9 87 18 138/56 96 08/09/16 20:00 T-Piece 6.00 28 08/09/16 19:56 95 passy josie 08/09/16 16:00 98.0 86 20 114/75 98 08/09/16 12:00 97.9 92 18 138/79 99 I/O 08/09/16 08/09/16 08/09/16 08/10/16 08/10/16 08/10/16 07:00 15:00 23:00 07:00 15:00 23:00 Intake Total 0 ml 960 ml 480 ml 0 ml Output Total 100 ml 1000 ml 125 ml 500 ml Balance -100 ml -40 ml 355 ml -500 ml Intake Oral 0 ml 960 ml 480 ml 0 ml IV Total 0 ml Output Urine Total 100 ml 1000 ml 125 ml 500 ml # Bowel Movements 0 1 1 0 Imaging Last Impressions Chest X-Ray 06/30/16 0600 Signed Impressions: Service Date/Time: Thursday, June 30, 2016 06:07 - CONCLUSION: No significant change. Mild bilateral perihilar and basilar consolidation again noted. Ubaldo Ortiz MD Shoulder X-Ray 06/28/16 0000 Signed Impressions: Service Date/Time: June 15:12 - CONCLUSION: 1. Limited but negative examination of the shoulder. Kyaw Rojo MD Abdomen X-Ray 06/19/16 0000 Signed Impressions: Service Date/Time: Sunday, June 19, 2016 10:43 - CONCLUSION: Gastric tube tip does not cross the diaphragm and the side port is approximately 8 cm above the diaphragm. Chano Goodwin MD Lower Extremity Ultrasound 06/04/16 0000 Signed Impressions: Service Date/Time: Saturday, June 04, 2016 14:54 - CONCLUSION: 1. No DVT identified. Dc Barton MD Liver Ultrasound 05/09/16 0000 Signed Impressions: Service Date/Time: Monday, May 09, 2016 22:28 - CONCLUSION: 1. Enlarged, fatty liver. 2. Small stones or tumefactive sludge adherent to one of the gallbladder arcos. 3. Splenomegaly. 4. Pancreas is obscured by overlying bowel gas and patient's body habitus. Arthur Kennedy MD Chest CT 03/28/16 0836 Signed Impressions: Service Date/Time: Monday, March 28, 2016 09:57 - CONCLUSION: Development areas of air bronchograms and consolidation more prominent in the right and left posterior basilar segments of the lower lobes. ET tube above the chanelle. Bernard Hartman MD CT Angiography 03/24/16 1121 Signed Impressions: Service Date/Time: Thursday, March 24, 2016 12:47 - CONCLUSION: 1. There is respiratory motion artifact but no PE is identified through most of the segmental level pulmonary arteries. 2. Mildly enlarged main pulmonary artery may indicate pulmonary arterial hypertension. 3. 11 mm left lower lobe noncalcified pulmonary nodule. Suggest correlation with any prior imaging studies that could confirm longer-term stability. If none are available consider short-term followup noncontrast chest CT in approximately 3 months. Ubaldo Rodas MD Objective Remarks GENERAL: 50-year-old morbidly obese male, alert and oriented, interactive, appears in nad. SKIN: Integrity intact. Warm and dry. HEAD: Atraumatic. Normocephalic. EYES: Pupils equal round. ENT: Trach capped, no drainage or erythema around the site NECK: Large neck. Trach capped. CARDIOVASCULAR: Distant heart sounds. RRR. S1, S2. No S4 or murmurs. RESPIRATORY: Tracheostomy. Breath sounds equal bilaterally. Diminished breath sounds due to body habitus. GASTROINTESTINAL: Abdomen soft, obese, nontender. Severe central obesity MUSCULOSKELETAL: Extremities without edema. NEUROLOGICAL: Alert and oriented. Follows commands, moves extremities 4. Procedures 04/30/16 - tracheostomy by Dr. Reyes 05/03/16 - EGD with PEG placement by Dr. Faith 06/09/16 - PEG removal 06/21/16- repeat tracheostomy by Dr. Cuellar Date of Removal: Jun 29, 2016 A/P Problem List: (1) Acute hypercapnic respiratory failure ICD Code: J96.02 Status: Acute (2) Staphylococcus aureus pneumonia ICD Code: J15.211 Status: Acute (3) Encephalopathy ICD Code: G93.40 Status: Acute (4) JACOB (obstructive sleep apnea) ICD Code: G47.33 Status: Acute (5) Diabetes mellitus type 2 in obese ICD Code: E11.9 Status: Acute (6) Morbid obesity with BMI of 50.0-59.9, adult ICD Code: E66.01 Status: Acute (7) Obesity hypoventilation syndrome ICD Code: E66.2 Status: Acute (8) Normocytic anemia ICD Code: D64.9 Status: Chronic Assessment and Plan Mr. Leger is a pleasant 50 year old male with a history of sleep apnea, morbid obesity, DM 2 who was admitted to the hospital on 03/24/2016 due to lightheadedness and dizziness. Initial work up indicated hypercarbia as well as hypoxemia. His O2 sat was 78% in the ED. CTA was negative for PE. He was started on BiPAP. However, due to unsatisfactory response, patient was intubated after neuromuscular paralysis using succinylcholine. Tracheostomy was done on 04/30/2016. Patient remained in the ICU until 05/07/2016. Patient went into acute respiratory failure again on 05/27/2016 and subsequently he was transferred back to ICU. Trach was exchanged on 05/27/2016 and he remained on mechanical ventilation. He was weaned off mechanical ventilation after tolerating CPAP trials. He was placed on T piece trial and tolerated that well. He was subsequently transferred to hospitalist service on 06/05/2016. Acute respiratory failure mixed hypercarbic and hypoxemic Probable obstructive sleep apnea Obesity hypoventilation syndrome - Status post Tracheostomy. - Pulmonary following. Dr. Perry (Pulmonary medicine) ordered bipap at night for JACOB. - Continue DuoNeb treatments. - Wayne is now #6, changed 07/30/16. - Tolerating PMV most of the day. Cap as tolerated. - Continue budesonide and continue to attempt trach weaning and possible capping. - Continue with physical therapy secondary to deconditioning. Neuropathy Sciatic Pain - Continue Baclofen 5mg daily, Lyrica 75mg bid, with oxycodone 2.5mg PO q4h PRN per pain scale. Diabetes mellitus type 2 with neuropathy - HgbA1c 7.4 in . Goal glucose 140-180. - Hold Levemir 5 units QHS . Start Metformin 500mg BIDPC. - Accu-Cheks BID. - Repeat hemoglobin A1c 5.2. - On metformin and dc Levemir. Pt. not on any insulin at home. Blood sugars well controlled. Transaminitis: LFTs improved, abdominal pain resolved. - Liver US shows fatty liver. Small stones or tumefactive sludge adherent to one of the gallbladder arcos. Splenomegaly. - Avoid hepatotoxins. - Hepatitis panel negative. 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 - Optifoam in place. - Apply bacitracin. - Wound cultures with normal sherine. - Wound care following, recommended silver nitrate for tracheostomy wound. Continue with dressing changes. Continue to monitor wound. Morbid Obesity with BMI 51.8 on admission: Encouraged weight loss. Current BMI 49.4 -->48.8 Chronic normocytic anemia - Possibly anemia of chronic disease. Stable H&H. Full code. DVT prophylaxis: Lovenox. Discharge Planning Plan to DC home with brother. Motivated to go home. Wean off tracheostomy. Plan to DC home when weaned off trach and cleared by consultants. Did not tolerated capping. Pulm following. Last CM note 08/01/16 Pt has been declined by [facility] due to pt has become to high functioning for their program. Spoke to pt and he is still planning to return home with brother. Whitney Bejarano MD Aug 10, 2016 09:40
--- NOTE | 2016-08-10 18:57 | HHI.PR ---
Subjective Remarks respiratory failure DOING WELL , now on O2 nc Objective Vital Signs Date Time Temp Pulse Resp B/P Pulse Ox O2 Delivery O2 Flow Rate FiO2 08/10/16 18:14 96 T-piece 6.00 08/10/16 16:00 98.2 101 18 119/55 96 08/10/16 12:00 98.2 92 20 112/70 93 08/10/16 08:03 99 21 08/10/16 08:00 97.7 94 20 135/71 92 08/10/16 07:15 Trach Collar 08/10/16 05:34 84 18 94/55 97 08/09/16 23:55 97.8 87 18 95/52 98 08/09/16 21:04 97.9 87 18 138/56 96 08/09/16 20:00 T-Piece 6.00 28 08/09/16 19:56 95 passy josie I/O 08/09/16 08/09/16 08/09/16 08/10/16 08/10/16 08/10/16 07:00 15:00 23:00 07:00 15:00 23:00 Intake Total 0 ml 960 ml 480 ml 0 ml 480 ml Output Total 100 ml 1000 ml 125 ml 500 ml 500 ml Balance -100 ml -40 ml 355 ml -500 ml -20 ml Intake Oral 0 ml 960 ml 480 ml 0 ml 480 ml IV Total 0 ml 0 ml Output Urine Total 100 ml 1000 ml 125 ml 500 ml 500 ml # Bowel Movements 0 1 1 0 1 Procedures 04/30/16 - tracheostomy by Dr. Reyes 05/03/16 - EGD with PEG placement by Dr. Faith 06/09/16 - PEG removal 06/21/16- repeat tracheostomy by Dr. Cuellar Objective Remarks GENERAL: SKIN: Warm and dry.on vent support HEAD: Atraumatic. Normocephalic. EYES: Pupils equal and round. No scleral icterus. No injection or drainage. ENT: No nasal bleeding or discharge. Mucous membranes pink and moist. NECK: Trachea midline. No JVD. CARDIOVASCULAR: Regular rate and rhythm. RESPIRATORY: No accessory muscle use. Clear to auscultation. Breath sounds equal bilaterally. GASTROINTESTINAL: Abdomen soft, non-tender, nondistended. Hepatic and splenic margins not palpable. MUSCULOSKELETAL: Extremities without clubbing, cyanosis, or edema. No obvious deformities. NEUROLOGICAL: Awake and alert. No obvious cranial nerve deficits.right hemiplegia Assessment and Plan Assessment and Plan respiratory failure ,S/P TRCHEOSTOMY morbid obesity probable JACOB VS CSA could not tolerate capping trach. plan O2 NEEDED pulm toilet prognosis guarded Orlando ePrry MD Aug 10, 2016 18:57
[2016-08-11] VITALS (9 sets, daily range): BP systolic 105–154; BP diastolic 58–74; PULSE 84–93; RESP 18–22; TEMP 97.2–98.4; O2SAT 94–98
[2016-08-11] MEDS: ARTIFICIAL TEARS OPTH SOLN 15 ML BTL EACH EYE SCH ×6 (00:55→22:00)
[2016-08-11] MEDS: ENOXAPARIN SODIUM 40 MG/0.4 ML SYRINGE SQ SCH ×2 (04:55→18:20)
[2016-08-11] MEDS: SODIUM CHLORIDE 0.9% FLUSH 5 ML FLUSH IVF SCH (09:00)
[2016-08-11] MEDS: DOCUSATE SODIUM 100 MG/10 ML UDC PO SCH ×2 (09:36→20:08)
[2016-08-11] MEDS: BACLOFEN 10 MG TAB PO SCH (09:36)
[2016-08-11] MEDS: metFORMIN HCL 500 MG TAB PO SCH ×2 (09:36→18:20)
[2016-08-11] MEDS: PANTOPRAZOLE SOD 40 MG DELAYED RELEASE TAB PO SCH (09:37)
[2016-08-11] MEDS: PREGABALIN 75 MG CAP PO SCH ×2 (09:37→20:08)
[2016-08-11] MEDS: BETAMETHASONE/CLOTRIMAZOLE CREAM 15 GM TOPICAL SCH ×2 (09:37→20:10)
[2016-08-11] MEDS: NYSTATIN 100,000 U/GM PWD 15 GM BTL TOPICAL SCH ×2 (09:37→20:10)
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
[2016-08-11] MEDS ORDERED: OXYC-392 PO (11:13)
[2016-08-11] MEDS ORDERED: PANT40TA3 PO (11:13)
[2016-08-11] MEDS ORDERED: DOCU100S PO (11:13)
[2016-08-11] MEDS ORDERED: METF500 PO (11:13)
[2016-08-11] MEDS ORDERED: BACL10TA PO (11:13)
[2016-08-11] MEDS ORDERED: LEVEMIR SQ (11:13)
[2016-08-11] MEDS ORDERED: LYRI75CA PO (11:13)
--- NOTE | 2016-08-11 11:15 | HHI.FF ---
Face to Face Verification Diagnosis: (1) Pickwickian syndrome (2) Anxiety (3) Dyspnea (4) Pulmonary edema (5) Encephalopathy (6) Hypoxia (7) Staphylococcus aureus pneumonia (8) Diabetes mellitus type 2 in obese (9) Pulmonary nodule, left (10) Obesity hypoventilation syndrome (11) Acute respiratory failure with hypoxia (12) Morbid obesity with BMI of 50.0-59.9, adult (13) Acute hypercapnic respiratory failure (14) Normocytic anemia Physical Therapy Order: Evaluate and Treat Home Health Nursing Order: Medical education Signs/symptoms of disease process Diabetic education Medication education-adverse effect Nursing assessment with vital signs I have seen patient Ulysses Leger on 08/11/16. My clinical findings support the need for the requested home health care services because: Ltd mobility - disease progression Patient has SOB I certify that my clinical findings support that this patient is homebound because: Post-op weakness Unsteady gait/balance Whitney Bejarano MD Aug 11, 2016 11:15
[2016-08-11] MEDS ORDERED: GETGO ROLLING W1 MI1 (11:16)
--- NOTE | 2016-08-11 12:31 | HHI.FF ---
Face to Face Verification Diagnosis: (1) Anxiety (2) Dyspnea (3) Pickwickian syndrome (4) Pulmonary edema (5) Normocytic anemia (6) Encephalopathy (7) Hypoxia (8) Staphylococcus aureus pneumonia (9) JACOB (obstructive sleep apnea) (10) Diabetes mellitus type 2 in obese (11) Pulmonary nodule, left (12) Obesity hypoventilation syndrome (13) Acute respiratory failure with hypoxia (14) Morbid obesity with BMI of 50.0-59.9, adult (15) Acute hypercapnic respiratory failure Home Health Nursing Order: Medical education Signs/symptoms of disease process Medication education-adverse effect Wound care and dressing changes Nursing assessment with vital signs Instructions: trach care, change dressings daily, and as need I have seen patient Ulysses Leger on 08/11/16. My clinical findings support the need for the requested home health care services because: Ltd mobility - disease progression Patient has SOB I certify that my clinical findings support that this patient is homebound because: Post-op weakness Impaired cognitive ability/safety Whitney Bejarano MD Aug 11, 2016 12:31
[2016-08-11] MEDS ORDERED: WHEEMIS3 (12:33)
--- NOTE | 2016-08-11 15:39 | HHI.PR ---
Subjective Remarks The patient is walking in the room with a walker with. Still with a trach. Since he doesn't have secretions denies having any cough or having any fevers or chills. He wants to go home this very well at home. He denies any chest pain, shortness of breath, nausea, vomiting, diarrhea or constipation. Objective Vitals Vital Signs Date Time Temp Pulse Resp B/P Pulse Ox O2 Delivery O2 Flow Rate FiO2 08/11/16 12:00 98.4 88 20 140/70 97 08/11/16 10:40 18 08/11/16 08:38 94 21 08/11/16 08:00 97.2 88 20 118/66 94 08/11/16 04:11 98.4 84 20 105/58 96 08/11/16 00:07 98.0 90 20 114/65 95 08/11/16 00:06 98.0 90 20 114/65 95 08/10/16 21:10 16 08/10/16 20:23 98.0 90 20 114/65 95 08/10/16 19:30 T-Piece 6.00 08/10/16 18:14 96 T-piece 6.00 08/10/16 16:00 98.2 101 18 119/55 96 I/O 08/10/16 08/10/16 08/10/16 08/11/16 08/11/16 08/11/16 07:00 15:00 23:00 07:00 15:00 23:00 Intake Total 0 ml 480 ml 300 ml 240 ml Output Total 500 ml 500 ml 250 ml 600 ml Balance -500 ml -20 ml 50 ml -360 ml Intake Oral 0 ml 480 ml 300 ml 240 ml IV Total 0 ml Output Urine Total 500 ml 500 ml 250 ml 600 ml # Bowel Movements 0 1 0 Imaging Last Impressions Chest X-Ray 06/30/16 0600 Signed Impressions: Service Date/Time: Thursday, June 30, 2016 06:07 - CONCLUSION: No significant change. Mild bilateral perihilar and basilar consolidation again noted. Ubaldo Ortiz MD Shoulder X-Ray 06/28/16 0000 Signed Impressions: Service Date/Time: June 15:12 - CONCLUSION: 1. Limited but negative examination of the shoulder. Kyaw Rojo MD Abdomen X-Ray 06/19/16 0000 Signed Impressions: Service Date/Time: Sunday, June 19, 2016 10:43 - CONCLUSION: Gastric tube tip does not cross the diaphragm and the side port is approximately 8 cm above the diaphragm. Chano Goodwin MD Lower Extremity Ultrasound 06/04/16 0000 Signed Impressions: Service Date/Time: Saturday, June 04, 2016 14:54 - CONCLUSION: 1. No DVT identified. Dc Barton MD Liver Ultrasound 05/09/16 0000 Signed Impressions: Service Date/Time: Monday, May 09, 2016 22:28 - CONCLUSION: 1. Enlarged, fatty liver. 2. Small stones or tumefactive sludge adherent to one of the gallbladder arcos. 3. Splenomegaly. 4. Pancreas is obscured by overlying bowel gas and patient's body habitus. Arthur Kennedy MD Chest CT 03/28/16 0836 Signed Impressions: Service Date/Time: Monday, March 28, 2016 09:57 - CONCLUSION: Development areas of air bronchograms and consolidation more prominent in the right and left posterior basilar segments of the lower lobes. ET tube above the chanelle. Bernard Hartman MD CT Angiography 03/24/16 1121 Signed Impressions: Service Date/Time: Thursday, March 24, 2016 12:47 - CONCLUSION: 1. There is respiratory motion artifact but no PE is identified through most of the segmental level pulmonary arteries. 2. Mildly enlarged main pulmonary artery may indicate pulmonary arterial hypertension. 3. 11 mm left lower lobe noncalcified pulmonary nodule. Suggest correlation with any prior imaging studies that could confirm longer-term stability. If none are available consider short-term followup noncontrast chest CT in approximately 3 months. Ubaldo Rodas MD Objective Remarks GENERAL: 50-year-old morbidly obese male, alert and oriented, interactive, appears in nad. SKIN: Integrity intact. Warm and dry. HEAD: Atraumatic. Normocephalic. EYES: Pupils equal round. ENT: Trach capped, no drainage or erythema around the site NECK: Large neck. Trach capped. CARDIOVASCULAR: Distant heart sounds. RRR. S1, S2. No S4 or murmurs. RESPIRATORY: Tracheostomy. Breath sounds equal bilaterally. Diminished breath sounds due to body habitus. GASTROINTESTINAL: Abdomen soft, obese, nontender. Severe central obesity MUSCULOSKELETAL: Extremities without edema. NEUROLOGICAL: Alert and oriented. Follows commands, moves extremities 4. Procedures 04/30/16 - tracheostomy by Dr. Reyes 05/03/16 - EGD with PEG placement by Dr. Faith 06/09/16 - PEG removal 06/21/16- repeat tracheostomy by Dr. Cuellar Date of Removal: Jun 29, 2016 A/P Problem List: (1) Acute hypercapnic respiratory failure ICD Code: J96.02 Status: Acute (2) Staphylococcus aureus pneumonia ICD Code: J15.211 Status: Acute (3) Encephalopathy ICD Code: G93.40 Status: Acute (4) JACOB (obstructive sleep apnea) ICD Code: G47.33 Status: Acute (5) Diabetes mellitus type 2 in obese ICD Code: E11.9 Status: Acute (6) Morbid obesity with BMI of 50.0-59.9, adult ICD Code: E66.01 Status: Acute (7) Obesity hypoventilation syndrome ICD Code: E66.2 Status: Acute (8) Normocytic anemia ICD Code: D64.9 Status: Chronic Assessment and Plan Mr. Leger is a pleasant 50 year old male with a history of sleep apnea, morbid obesity, DM 2 who was admitted to the hospital on 03/24/2016 due to lightheadedness and dizziness. Initial work up indicated hypercarbia as well as hypoxemia. His O2 sat was 78% in the ED. CTA was negative for PE. He was started on BiPAP. However, due to unsatisfactory response, patient was intubated after neuromuscular paralysis using succinylcholine. Tracheostomy was done on 04/30/2016. Patient remained in the ICU until 05/07/2016. Patient went into acute respiratory failure again on 05/27/2016 and subsequently he was transferred back to ICU. Trach was exchanged on 05/27/2016 and he remained on mechanical ventilation. He was weaned off mechanical ventilation after tolerating CPAP trials. He was placed on T piece trial and tolerated that well. He was subsequently transferred to hospitalist service on 06/05/2016. Acute respiratory failure mixed hypercarbic and hypoxemic Probable obstructive sleep apnea Obesity hypoventilation syndrome - Status post Tracheostomy. - Pulmonary following. Dr. Perry (Pulmonary medicine), bipap at night for JACOB. - Continue DuoNeb treatments. - Wayne is now #6, changed 07/30/16. - Tolerating PMV most of the day. Cap as tolerated. - Continue budesonide and continue to attempt trach weaning and possible capping. Did not tolerated capping. - Continue with physical therapy secondary to deconditioning. Neuropathy Sciatic Pain - Continue Baclofen 5mg daily, Lyrica 75mg bid, with oxycodone 2.5mg PO q4h PRN per pain scale. Diabetes mellitus type 2 with neuropathy - HgbA1c 7.4 in . Goal glucose 140-180. - Hold Levemir 5 units QHS . Start Metformin 500mg BIDPC. - Accu-Cheks BID. - Repeat hemoglobin A1c 5.2. - On metformin and dc Levemir. Pt. not on any insulin at home. Blood sugars well controlled. Transaminitis: LFTs improved, abdominal pain resolved. - Liver US shows fatty liver. Small stones or tumefactive sludge adherent to one of the gallbladder arcos. Splenomegaly. - Avoid hepatotoxins. - Hepatitis panel negative. 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 - Optifoam in place. - Apply bacitracin. - Wound cultures with normal sherine. - Wound care following, recommended silver nitrate for tracheostomy wound. Continue with dressing changes. Continue to monitor wound. Morbid Obesity with BMI 51.8 on admission: Encouraged weight loss. Current BMI 49.4 -->48.8 Chronic normocytic anemia - Possibly anemia of chronic disease. Stable H&H. Full code. DVT prophylaxis: Lovenox. Discharge Planning Plan to DC home with brother. Motivated to go home. Wean off tracheostomy. Plan to DC home when weaned off trach and cleared by consultants. Did not tolerated capping. Pulm following. Pt has been declined by [facility] due to pt has become to high functioning for their program. Spoke to pt and he is still planning to return home with brother. Says he has family support. Whitney Bejarano MD Aug 11, 2016 15:39
[2016-08-12] VITALS (8 sets, daily range): BP systolic 93–138; BP diastolic 58–76; PULSE 77–109; RESP 16–22; TEMP 98.1–98.4; O2SAT 94–97
[2016-08-12] MEDS: ARTIFICIAL TEARS OPTH SOLN 15 ML BTL EACH EYE SCH ×6 (02:00→20:23)
[2016-08-12] MEDS: ENOXAPARIN SODIUM 40 MG/0.4 ML SYRINGE SQ SCH ×2 (06:03→17:23)
[2016-08-12] MEDS: SODIUM CHLORIDE 0.9% FLUSH 5 ML FLUSH IVF SCH (08:26)
[2016-08-12] MEDS: BACLOFEN 10 MG TAB PO SCH (08:27)
[2016-08-12] MEDS: PANTOPRAZOLE SOD 40 MG DELAYED RELEASE TAB PO SCH (08:27)
[2016-08-12] MEDS: PREGABALIN 75 MG CAP PO SCH ×2 (08:27→20:22)
[2016-08-12] MEDS: metFORMIN HCL 500 MG TAB PO SCH ×2 (08:27→17:23)
[2016-08-12] MEDS: BETAMETHASONE/CLOTRIMAZOLE CREAM 15 GM TOPICAL SCH ×2 (08:29→20:22)
[2016-08-12] MEDS: DOCUSATE SODIUM 100 MG/10 ML UDC PO SCH ×2 (08:29→20:22)
[2016-08-12] MEDS: NYSTATIN 100,000 U/GM PWD 15 GM BTL TOPICAL SCH ×2 (08:30→20:23)
--- NOTE | 2016-08-12 15:11 | HHI.PR ---
Subjective Remarks Mr. Leger is a 50-year-old male admitted with acute respiratory failure with hypercarbia. The degree of this was severe and he required intubation. He has been here since 03/24/16. During this time he has had persistent and recurrent problems with respiratory failure. Being intubated for a long period of time he has developed global weakness and necessity for tracheostomy. Lately he has been off the ventilator and slowly improving. He reports that he can walk 200 feet now. He is looking to discharge to home living with his brother. Tracheostomy remains in place for now. Objective Vital Signs Date Time Temp Pulse Resp B/P Pulse Ox O2 Delivery O2 Flow Rate FiO2 08/12/16 12:00 98.2 98 18 138/76 94 08/12/16 10:42 94 Room Air T-Piece 08/12/16 09:30 18 08/12/16 08:10 95 21 08/12/16 08:00 98.2 80 16 93/58 94 08/12/16 04:00 T-Piece 6.00 28 08/12/16 04:00 98.1 77 22 123/60 94 08/12/16 00:00 T-Piece 6.00 28 08/12/16 00:00 98.2 85 22 123/68 97 08/11/16 20:00 T-Piece 6.00 28 08/11/16 20:00 97.8 88 22 154/74 98 08/11/16 17:27 96 21 08/11/16 16:00 98.2 93 18 137/72 94 I/O 08/11/16 08/11/16 08/11/16 08/12/16 08/12/16 08/12/16 06:59 14:59 22:59 06:59 14:59 22:59 Intake Total 240 ml 480 ml 240 ml 600 ml Output Total 600 ml 500 ml 300 ml 100 ml 200 ml Balance -360 ml -20 ml -60 ml -100 ml 400 ml Intake Oral 240 ml 480 ml 240 ml 600 ml IV Total 0 ml 0 ml Output Urine Total 600 ml 500 ml 300 ml 100 ml 200 ml # Bowel Movements 0 1 0 Procedures 04/30/16 - tracheostomy by Dr. Reyes 05/03/16 - EGD with PEG placement by Dr. Faith 06/09/16 - PEG removal 06/21/16- repeat tracheostomy by Dr. Cuellar Objective Remarks GENERAL: NAD, A&Ox3 HEAD: Normocephalic. NECK: Supple, trachea midline. No lymphadenopathy. Tracheostomy present. EYES: No scleral icterus. No injection or drainage. CARDIOVASCULAR: Regular rate and rhythm without murmurs, gallops, or rubs. RESPIRATORY: Breath sounds equal bilaterally. No accessory muscle use. GASTROINTESTINAL: Abdomen soft, non-tender, nondistended. MUSCULOSKELETAL: No cyanosis, or edema. SKIN: Warm and dry. NEURO: No focal neurological deficitis. A/P Problem List: (1) Acute hypercapnic respiratory failure ICD Code: J96.02 Assessment and Plan Assessment and Plan Mr. Leger is a pleasant 50 year old male admitted 5 months ago with respiratory failure who had a prolonged course of respiratory failure and prolonged intubation and vent dependence. Now off the ventilator with persistent tracheostomy. Gradually became ambulatory and now he is ambulatory but not yet back to baseline. Acute respiratory failure mixed hypercarbic and hypoxemic Probable obstructive sleep apnea Obesity hypoventilation syndrome Pulmonology following Now off oxygen Tracheostomy continued in place Continue trach weaning attempts and capping Not yet tolerant of capping Continue PT Neuropathy Sciatic Pain Baclofen Lyrica Oxycodone Diabetes mellitus type 2 with neuropathy Twice a day metformin Follow hemoglobin A1c is outpatient Diabetic diet Follow blood sugars Wound on anterior neck 2/2 trach collar, stage III Continue bacitracin Dressing changes Severe obesity Weight loss encouraged Chronic normocytic anemia Stable DVT prophylaxis: Lovenox. Discharge Planning Plan to DC home with brother. Motivated to go home. Wean off tracheostomy. Plan to DC home when weaned off trach and cleared by consultants. Did not tolerated capping. Pulm following. Pt has been declined by [facility] due to pt has become to high functioning for their program. Spoke to pt and he is still planning to return home with brother. Says he has family support. Dc Richardson MD Aug 12, 2016 15:11
[2016-08-13] VITALS (9 sets, daily range): BP systolic 97–122; BP diastolic 54–74; PULSE 89–97; RESP 17–20; TEMP 98–98.4; O2SAT 90–97
[2016-08-13] MEDS: ARTIFICIAL TEARS OPTH SOLN 15 ML BTL EACH EYE SCH ×6 (01:40→20:27)
[2016-08-13] MEDS: ENOXAPARIN SODIUM 40 MG/0.4 ML SYRINGE SQ SCH ×2 (05:38→17:18)
[2016-08-13] MEDS: SODIUM CHLORIDE 0.9% FLUSH 5 ML FLUSH IVF SCH (09:00)
[2016-08-13] MEDS: NYSTATIN 100,000 U/GM PWD 15 GM BTL TOPICAL SCH ×2 (09:00→20:26)
[2016-08-13] MEDS: DOCUSATE SODIUM 100 MG/10 ML UDC PO SCH ×2 (09:00→20:26)
[2016-08-13] MEDS: metFORMIN HCL 500 MG TAB PO SCH ×2 (09:13→17:18)
[2016-08-13] MEDS: PREGABALIN 75 MG CAP PO SCH ×2 (09:13→20:25)
[2016-08-13] MEDS: PANTOPRAZOLE SOD 40 MG DELAYED RELEASE TAB PO SCH (09:13)
[2016-08-13] MEDS: BACLOFEN 10 MG TAB PO SCH (09:13)
[2016-08-13] MEDS: BETAMETHASONE/CLOTRIMAZOLE CREAM 15 GM TOPICAL SCH ×2 (09:15→20:29)
[2016-08-13] MEDS ORDERED: [UNRECOGNIZED DRUG - SUPPLY] (11:15)
[2016-08-13] MEDS ORDERED: ARGY3MIS8 (11:17)
--- NOTE | 2016-08-13 11:19 | HHI.FF ---
Face to Face Verification Diagnosis: (1) Tracheostomy care (2) Acute hypercapnic respiratory failure (3) Obesity hypoventilation syndrome Physical Therapy Order: Evaluate and Treat Home Health Nursing Order: Wound care and dressing changes Nursing assessment with vital signs Instructions: Check tracheostomy and oxygenation I have seen patient Ulysses Leger on 08/13/16. My clinical findings support the need for the requested home health care services because: Ltd mobility - disease progression Patient has SOB Deconditioned w/ increased weakness Limited ability to care for self I certify that my clinical findings support that this patient is homebound because: Unsteady gait/balance Unsafe to leave home unassisted Unable to use public transportation Dc Richardson MD Aug 13, 2016 11:19
[2016-08-13] MEDS ORDERED: SILV1MIS21 TOPICAL (11:22)
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
--- NOTE | 2016-08-13 11:59 | HHI.FF ---
Face to Face Verification Diagnosis: (1) Tracheostomy care (2) Morbid obesity with BMI of 50.0-59.9, adult (3) Obesity hypoventilation syndrome (4) Diabetes mellitus type 2 in obese Home Health Nursing Order: Wound care and dressing changes Nursing assessment with vital signs Instructions: Tracheostomy evaluation, oxygen saturation evaluation I have seen patient Ulysses Leger on 08/13/16. My clinical findings support the need for the requested home health care services because: Ltd mobility - disease progression Patient has SOB Limited ability to care for self I certify that my clinical findings support that this patient is homebound because: Unsteady gait/balance Unsafe to leave home unassisted Unable to use public transportation Dc Richardson MD Aug 13, 2016 11:59
[2016-08-13] MEDS ORDERED: [UNRECOGNIZED DRUG - OTHER] TOPICAL (14:00)
[2016-08-13] MEDS ORDERED: TUBING TOPICAL (14:00)
[2016-08-14] VITALS: BP 119/64; PULSE 98; RESP 20; TEMP 98.3; O2SAT 88
[2016-08-14 01:22] VITALS: O2SAT 94
[2016-08-14] MEDS: ARTIFICIAL TEARS OPTH SOLN 15 ML BTL EACH EYE SCH ×3 (02:00→08:03)
[2016-08-14 05:00] VITALS: BP 107/58; PULSE 79; RESP 18; TEMP 97.7; O2SAT 97
[2016-08-14] MEDS: ENOXAPARIN SODIUM 40 MG/0.4 ML SYRINGE SQ SCH (05:02)
[2016-08-14 08:00] VITALS: BP 104/46; PULSE 87; RESP 20; TEMP 97.9; O2SAT 96
[2016-08-14] MEDS: SODIUM CHLORIDE 0.9% FLUSH 5 ML FLUSH IVF SCH (08:03)
[2016-08-14] MEDS: DOCUSATE SODIUM 100 MG/10 ML UDC PO SCH (08:03)
[2016-08-14] MEDS: NYSTATIN 100,000 U/GM PWD 15 GM BTL TOPICAL SCH (08:03)
[2016-08-14] MEDS: PANTOPRAZOLE SOD 40 MG DELAYED RELEASE TAB PO SCH (08:04)
[2016-08-14] MEDS: PREGABALIN 75 MG CAP PO SCH (08:04)
[2016-08-14] MEDS: BACLOFEN 10 MG TAB PO SCH (08:04)
[2016-08-14] MEDS: metFORMIN HCL 500 MG TAB PO SCH (08:04)
[2016-08-14] MEDS: BETAMETHASONE/CLOTRIMAZOLE CREAM 15 GM TOPICAL SCH (08:05)
[2016-08-14 08:11] VITALS: O2SAT 95
--- NOTE | 2016-08-14 08:23 | HHI.PR ---
Subjective Remarks Follow-up for respiratory failure. Post Discharge day 1. Pt to be discharged later today and is "looking forward to going home." Reported walking 220 feet yesterday, had some fatigue at end of walk. Per RN (Gayathri), durable medical goods to be delivered to pt's home and once confirmation is received pt is to be discharged. Pt had no complaints/concerns. Objective Vitals Vital Signs Date Time Temp Pulse Resp B/P Pulse Ox O2 Delivery O2 Flow Rate FiO2 08/14/16 08:11 95 21 08/14/16 08:00 Room Air 08/14/16 05:00 97.7 79 18 107/58 97 08/14/16 04:00 T-Piece 6.00 28 08/14/16 01:22 94 T-piece 28 08/14/16 00:00 98.3 98 20 119/64 88 08/14/16 00:00 Room Air 08/13/16 20:00 98.2 89 17 108/59 08/13/16 20:00 Room Air 08/13/16 19:14 95 08/13/16 16:00 98.4 93 20 106/55 97 08/13/16 12:07 98.3 95 18 103/64 94 08/13/16 10:13 95 21 08/13/16 09:15 Room Air I/O 08/13/16 08/13/16 08/13/16 08/14/16 08/14/16 08/14/16 07:00 15:00 23:00 07:00 15:00 23:00 Intake Total 240 ml 720 ml 240 ml Output Total 475 ml 150 ml Balance -235 ml 720 ml 90 ml Intake Oral 240 ml 720 ml 240 ml IV Total 0 ml Output Urine Total 475 ml 150 ml # Voids 2 # Bowel Movements 1 Imaging Last Impressions Chest X-Ray 06/30/16 0600 Signed Impressions: Service Date/Time: Thursday, June 30, 2016 06:07 - CONCLUSION: No significant change. Mild bilateral perihilar and basilar consolidation again noted. Ubaldo Ortiz MD Shoulder X-Ray 06/28/16 0000 Signed Impressions: Service Date/Time: June 15:12 - CONCLUSION: 1. Limited but negative examination of the shoulder. Kyaw Rojo MD Abdomen X-Ray 06/19/16 0000 Signed Impressions: Service Date/Time: Sunday, June 19, 2016 10:43 - CONCLUSION: Gastric tube tip does not cross the diaphragm and the side port is approximately 8 cm above the diaphragm. Chano Goodwin MD Lower Extremity Ultrasound 06/04/16 0000 Signed Impressions: Service Date/Time: Saturday, June 04, 2016 14:54 - CONCLUSION: 1. No DVT identified. Dc Barton MD Liver Ultrasound 05/09/16 0000 Signed Impressions: Service Date/Time: Monday, May 09, 2016 22:28 - CONCLUSION: 1. Enlarged, fatty liver. 2. Small stones or tumefactive sludge adherent to one of the gallbladder arcos. 3. Splenomegaly. 4. Pancreas is obscured by overlying bowel gas and patient's body habitus. Arthur Kennedy MD Chest CT 03/28/16 0836 Signed Impressions: Service Date/Time: Monday, March 28, 2016 09:57 - CONCLUSION: Development areas of air bronchograms and consolidation more prominent in the right and left posterior basilar segments of the lower lobes. ET tube above the chanelle. Bernard Hartman MD CT Angiography 03/24/16 1121 Signed Impressions: Service Date/Time: Thursday, March 24, 2016 12:47 - CONCLUSION: 1. There is respiratory motion artifact but no PE is identified through most of the segmental level pulmonary arteries. 2. Mildly enlarged main pulmonary artery may indicate pulmonary arterial hypertension. 3. 11 mm left lower lobe noncalcified pulmonary nodule. Suggest correlation with any prior imaging studies that could confirm longer-term stability. If none are available consider short-term followup noncontrast chest CT in approximately 3 months. Ubaldo Rodas MD Objective Remarks GENERAL: Pt laying a bed, covered in hospital sheet, awake and alert, not in acute distress. Pt speaking. SKIN: Warm and dry. Skin wound at site of T- Piece. Bandage covering wound site. HEAD: Normocephalic. EYES: No scleral icterus. No injection or drainage. NECK: Supple, trachea midline. Trach present. CARDIOVASCULAR: Regular rate and rhythm without murmurs, gallops, or rubs. RESPIRATORY: Breath sounds equal bilaterally. No accessory muscle use. GASTROINTESTINAL: Abdomen soft, large, non-tender, nondistended. Bowel sounds present all quadrants. MUSCULOSKELETAL: No cyanosis, or edema. PSYCHIATRIC: Pt alert and oriented x3, without over signs of depression or anxiety. Pleasant and cooperative. Pt smiling. Procedures 04/30/16 - tracheostomy by Dr. Reyes 05/03/16 - EGD with PEG placement by Dr. Faith 06/09/16 - PEG removal 06/21/16- repeat tracheostomy by Dr. Cuellar Urinary Catheter: No Date of Removal: Jun 29, 2016 Vascular Central Line Catheter: No A/P Problem List: (1) Acute hypercapnic respiratory failure ICD Code: J96.02 Status: Acute (2) Staphylococcus aureus pneumonia ICD Code: J15.211 Status: Acute (3) Encephalopathy ICD Code: G93.40 Status: Acute (4) JACOB (obstructive sleep apnea) ICD Code: G47.33 Status: Acute (5) Diabetes mellitus type 2 in obese ICD Code: E11.9 Status: Acute (6) Morbid obesity with BMI of 50.0-59.9, adult ICD Code: E66.01 Status: Acute (7) Obesity hypoventilation syndrome ICD Code: E66.2 Status: Acute (8) Normocytic anemia ICD Code: D64.9 Status: Chronic Assessment and Plan Mr. Leger is a pleasant 50 year old male with a history of sleep apnea, morbid obesity, DM 2 who was admitted to the hospital on 03/24/2016 due to lightheadedness and dizziness. Initial work up indicated hypercarbia as well as hypoxemia. His O2 sat was 78% in the ED. CTA was negative for PE. He was started on BiPAP. However, due to unsatisfactory response, patient was intubated after neuromuscular paralysis using succinylcholine. Tracheostomy was done on 04/30/2016. Patient remained in the ICU until 05/07/2016. Patient went into acute respiratory failure again on 05/27/2016 and subsequently he was transferred back to ICU. Trach was exchanged on 05/27/2016 and he remained on mechanical ventilation. He was weaned off mechanical ventilation after tolerating CPAP trials. He was placed on T piece trial and tolerated that well. He was subsequently transferred to hospitalist service on 06/05/2016. Acute respiratory failure mixed hypercarbic and hypoxemic Probable obstructive sleep apnea Obesity hypoventilation syndrome - Status post Tracheostomy. - On 35% FiO2 T-piece, O2 sat stable, trach collar, keep O2 sat > 92%. - Pulmonary following. - Continue DuoNeb treatments. -Dr. Perry (Pulmonary medicine) ordered bipap at night for JACOB, please refer to his note for more information. -Tracheostomy weaning ongoing, tube changed 07/30/16. Pt and RN report no difficulties with breathing. - Weaning ongoing, pt speaking. Pneumonia with Staph Aureus, resolved. ID signed off. 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 - Continue Baclofen 5mg daily, Lyrica 75mg bid, with oxycodone 2.5mg PO q4h PRN per pain scale. Diabetes mellitus type 2 with neuropathy - HgbA1c 7.4 in . Goal glucose 140-180. - Continue Levemir 5 units QHS while hospitalized. - Blood glucose well controlled - Continue Accu-checks BID. - Continue Lyrica and Baclofen for neuropathy. -Finger sticks now to be done every 6 hours (07/19/16). Nutrition: status post PEG tube placed initially on 05/03 by LIBBY Faith - 06/09/16: pt complains of irritation/drainage/discomfort at PEG insertion site, tolerating PO intake. - PEG removed 06/09/16 by LIBBY Munson. - Beneprotein discontinued as it had been ordered while/when pt had a PEG tube. Transaminitis: LFTs improved, abdominal pain resolved. - Liver US shows fatty liver. Small stones or tumefactive sludge adherent to one of the gallbladder arcos. Splenomegaly. - Avoid hepatotoxins. - Hepatitis panel negative. 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 - Optifoam in place. - Apply bacitracin. - Wound cultures with normal sherine. - Wound care following, last saw patient 07/03. -Wound care contacted hospitalist team on 07/17/16 requesting d/c of Silvadene and initiation of Silver nitrate to address wound. Orders placed. Morbid Obesity with BMI 51.8 on admission: Encouraged weight loss. As of BMI is 48.4. -BMI is 48.3 Left Shoulder Pain: with decreased ROM. - Xrays negative for fracture/dislocations. - Continue PT - Continue pain control with oxycodone 2.5mg po q4h prn while hospitalized Chronic normocytic anemia: -Labs personally reviewed, values effectively unchanged since last draw. -May be secondary to secondary to chronic health issues; may consider vitamin B6/12 evaluation Full code. DVT prophylaxis: Lovenox. Case discussed with pt, RN (Gayathri), and Dr. Richarsdon. Discharge Planning Pt is likely to be discharged to his brother's home later today. Pt is reporting good family support as he has siblings living locally that will be supportive to and for him. Nilton Riley Jr. FLEX Aug 14, 2016 08:22
[2016-08-14 11:57] VITALS: BP 116/69; PULSE 88; RESP 20; TEMP 98.2; O2SAT 95
[2016-09-05] MEDS ORDERED: [UNRECOGNIZED DRUG - CODE] (11:57)
[2016-09-05] MEDS ORDERED: BLOOD GLUCOSE T1 TES (11:57)
[2016-09-05] MEDS ORDERED: NEBUKIT5 (12:06)
[2016-09-05] MEDS ORDERED: NEBULIZER1 MI1 (12:06)
== END 2016-08-14 13:08 | disposition home health service (06) | DRG 4 ==
LOC: NEPE 11:03 → NEDA 14:20 → OBSVTOIN 16:02 → HIMN 17:50 → HCPC 05-17 19:07 → N05A 05-19 16:06 → N03B 05-27 03:10 → N07A 06-05 20:54 → N03B 06-12 15:33 → N04A 06-29 22:18
PROVIDERS: ADMIT Hospitalist; ATTEND Hospitalist
PROC: 5A1955Z Respiratory Ventilation, Greater than 96 Consecutive Hours (ICD-10-PCS; 2016-03-26)
PROC: 03HY32Z Insertion of Monitoring Device into Upper Artery, Percutaneous Approach (ICD-10-PCS; 2016-03-26)
PROC: 5A09357 Assistance with Respiratory Ventilation, Less than 24 Consecutive Hours, Continuous Positive Airway Pressure (ICD-10-PCS; 2016-03-26)
PROC: 0BH17EZ Insertion of Endotracheal Airway into Trachea, Via Natural or Artificial Opening (ICD-10-PCS; 2016-03-26)
PROC: 05HN33Z Insertion of Infusion Device into Left Internal Jugular Vein, Percutaneous Approach (ICD-10-PCS; 2016-03-26)
PROC: 4A133B1 Monitoring of Arterial Pressure, Peripheral, Percutaneous Approach (ICD-10-PCS; 2016-03-26)
PROC: 4A133J1 Monitoring of Arterial Pulse, Peripheral, Percutaneous Approach (ICD-10-PCS; 2016-03-26)
PROC: 0T9B70Z Drainage of Bladder with Drainage Device, Via Natural or Artificial Opening (ICD-10-PCS; 2016-03-26)
PROC: 05HM33Z Insertion of Infusion Device into Right Internal Jugular Vein, Percutaneous Approach (ICD-10-PCS; 2016-04-02)
PROC: 0BJ08ZZ Inspection of Tracheobronchial Tree, Via Natural or Artificial Opening Endoscopic (ICD-10-PCS; 2016-04-30)
PROC: 0B110F4 Bypass Trachea to Cutaneous with Tracheostomy Device, Open Approach (ICD-10-PCS; principal; 2016-04-30 14:09)
PROC: 0DH63UZ Insertion of Feeding Device into Stomach, Percutaneous Approach (ICD-10-PCS; 2016-05-03)
PROC: 0DJ08ZZ Inspection of Upper Intestinal Tract, Via Natural or Artificial Opening Endoscopic (ICD-10-PCS; 2016-05-03)
PROC: 0B21XFZ Change Tracheostomy Device in Trachea, External Approach (ICD-10-PCS; 2016-05-27)
PROC: 0DP6XUZ Removal of Feeding Device from Stomach, External Approach (ICD-10-PCS; 2016-06-09)
PROC: 5A1955Z Respiratory Ventilation, Greater than 96 Consecutive Hours (ICD-10-PCS; 2016-06-12)
PROC: 02HV33Z Insertion of Infusion Device into Superior Vena Cava, Percutaneous Approach (ICD-10-PCS; 2016-06-15)
PROC: 03HY32Z Insertion of Monitoring Device into Upper Artery, Percutaneous Approach (ICD-10-PCS; 2016-06-18)
PROC: 4A133B1 Monitoring of Arterial Pressure, Peripheral, Percutaneous Approach (ICD-10-PCS; 2016-06-18)
PROC: 4A133J1 Monitoring of Arterial Pulse, Peripheral, Percutaneous Approach (ICD-10-PCS; 2016-06-18)
PROC: 0B113F4 Bypass Trachea to Cutaneous with Tracheostomy Device, Percutaneous Approach (ICD-10-PCS; 2016-06-20)
DX: E66.2 Morbid (severe) obesity with alveolar hypoventilation (principal); R65.20 Severe sepsis without septic shock; G92 Toxic encephalopathy; A41.9 Sepsis, unspecified organism; E43 Unspecified severe protein-calorie malnutrition; J15.211 Pneumonia due to Methicillin susceptible Staphylococcus aureus; J15.1 Pneumonia due to Pseudomonas; R34 Anuria and oliguria; J98.4 Other disorders of lung; J96.10 Chronic respiratory failure, unspecified whether with hypoxia or hypercapnia; J18.9 Pneumonia, unspecified organism; J96.00 Acute respiratory failure, unspecified whether with hypoxia or hypercapnia; J95.851 Ventilator associated pneumonia; E87.2 Acidosis; Z68.43 Body mass index [BMI] 50.0-59.9, adult; J98.11 Atelectasis; E87.1 Hypo-osmolality and hyponatremia; K56.7 Ileus, unspecified; E87.0 Hyperosmolality and hypernatremia; Z99.11 Dependence on respirator [ventilator] status; L89.893 Pressure ulcer of other site, stage 3; R13.10 Dysphagia, unspecified; I27.2 Other secondary pulmonary hypertension; E11.40 Type 2 diabetes mellitus with diabetic neuropathy, unspecified; Z88.0 Allergy status to penicillin; Z88.7 Allergy status to serum and vaccine; R91.1 Solitary pulmonary nodule; L21.9 Seborrheic dermatitis, unspecified; Y95 Nosocomial condition; I08.3 Combined rheumatic disorders of mitral, aortic and tricuspid valves; Z51.5 Encounter for palliative care; F41.9 Anxiety disorder, unspecified; Y84.8 Other medical procedures as the cause of abnormal reaction of the patient, or of later complication, without mention of misadventure at the time of the procedure; Z83.3 Family history of diabetes mellitus; E11.65 Type 2 diabetes mellitus with hyperglycemia; I50.9 Heart failure, unspecified; E87.6 Hypokalemia; E83.39 Other disorders of phosphorus metabolism; K76.0 Fatty (change of) liver, not elsewhere classified; K80.20 Calculus of gallbladder without cholecystitis without obstruction; E11.649 Type 2 diabetes mellitus with hypoglycemia without coma; D64.9 Anemia, unspecified; R16.1 Splenomegaly, not elsewhere classified; M25.512 Pain in left shoulder; M54.40 Lumbago with sciatica, unspecified side; Z23 Encounter for immunization
CPT/HCPCS: 31500; 36556; 36569; 36600; 71010; 71250; 71275; 73030; 74000; 76705; 76937; 80048; 80053; 80074; 80076; 80202; 81001; 82103; 82105; 82140; 82390; 82550; 82728; 82805; 82948; 83036; 83520; 83540; 83550; 83605; 83735; 83880; 84100; 84132; 84145; 84155; 84443; 84484; 85007; 85025; 85027; 85610; 85730; 86038; 86256; 86403; 86850; 86900; 86901; 87040; 87070; 87077; 87086; 87147; 87185; 87186; 87205; 87493; 87641; 90686; 93005; 93306; 93971; 94002; 94003; 94620; 94640; 94664; 94799; A7520; A7521; C9113; C9399; J0153; J0360; J0690; J0692; J1325; J1450; J1650; J1815; J1817; J1940; J1956; J2020; J2060; J2212; J2250; J2405; J2765; J2920; J2930; J3010; J3370; J3480; J7030; J7040; J7050; J7613; J7626; J7644; Q2038; Q9967

== ENCOUNTER 2016-09-06 15:12 | Inpatient (IN) | payer MEDICAID, OTHER ==
[2016-09-06] VITALS (21 sets, daily range): BP systolic 81–161; BP diastolic 51–89; PULSE 46–104; RESP 15–28; TEMP 91.5–99; O2SAT 88–100
[~2016-09-06] VITALS: Ht 162.6 cm; Wt 132.4 kg
[~2016-09-06 15:12] MED LIST: ARTI3.5O EACH EYE; BACL10TA PO; BLOOD GLUCOSE T1 TES; GETGO ROLLING W1 MI1; IPRASOL INH; LEVEMIR SQ; LYRI75CA PO; METF500 PO; NEBUKIT5; NEBULIZER1 MI1; OXYC-392 PO; PANT40TA3 PO; SILV1MIS21 TOPICAL; TUBING TOPICAL; WHEEMIS3; [UNRECOGNIZED DRUG - CODE]; [UNRECOGNIZED DRUG - OTHER] TOPICAL; [UNRECOGNIZED DRUG - SUPPLY]
--- NOTE | 2016-09-06 15:48 | PD ---
HPI Chief Complaint: Code Blue Time Seen by Provider: 15:29 Travel History International Travel<30 days: No Contact w/Intl Traveler<30days: No Traveled to known affect area: No History of Present Illness HPI 50yo M with PMH of DM, JACOB, hypercapnic respiratory failure with prolonged hospital course from 03/24/16-08/13/16 s/p tracheostomy was brought in by [facility] s/ p cardiac arrest. Pt was complaining of difficulty breathing and then had a witnessed collapse and became pulseless. As per [facility], pt was in asystole when they arrived and had ROSC after epinephrine x4. Estimated down time was about 14 minutes. Pt was in sinus tachycardia when he arrived. There is dried blood on his face and abrasion on nose. Breath sounds were equal bilaterally and pt was bagged from his tracheostomy site. Pt is unresponsive with no sedation. PFSH Past Medical History Arthritis: No Asthma: No Autoimmune Disease: No Heart Rhythm Problems: No Cancer: No Cardiovascular Problems: No High Cholesterol: No Chemotherapy: No Chest Pain: No Congestive Heart Failure: No COPD: No Cerebrovascular Accident: No Diabetes: Yes Patient Takes Glucophage: No Endocrine: Yes GERD: No Genitourinary: No Hiatal Hernia: No Immune Disorder: No Kidney Stones: No Musculoskeletal: No Neurologic: Yes Psychiatric: No Reproductive: No Respiratory: Yes Migraines: No Radiation Therapy: No Renal Failure: No Seizures: No Sickle Cell Disease: No Sleep Apnea: Yes Thyroid Disease: No Ulcer: No Past Surgical History Abdominal Surgery: No AICD: No Arteriovenous Shunt: No Cardiac Surgery: No Ear Surgery: No Endocrine Surgery: No Eye Surgery: No Genitourinary Surgery: No Gynecologic Surgery: No Insulin Pump: No Joint Replacement: No Neurologic Surgery: Yes (carpal tunnel right wrist) Oral Surgery: No Pacemaker: No Thoracic Surgery: No Other Surgery: Yes (TRACH) Social History Alcohol Use: No Tobacco Use: No Substance Use: No Allergies-Medications (Allergen,Severity, Reaction): Coded Allergies: Penicillin (Verified Allergy, Severe, Swelling, 09/06/16) has tolerated cephalosporins Tetanus Toxoid (Verified Allergy, Unknown, Swelling, 09/06/16) *MDRO Multi-Drug Resistant Organism (Verified Adverse Reaction, Unknown, ) MRSA PCR Positive 09/06/16 Reported Meds & Prescriptions Reported Meds & Active Scripts Active Arzol Silver Nitrate Topical (Silver Nitrate-Potassium Nitrate Topical) 75-25 % Appl 1 Appl TOPICAL Q7D PRN Lyrica (Pregabalin) 75 Mg Cap 75 Mg PO Q12HR Pantoprazole (Pantoprazole Sodium) 40 Mg Tab 40 Mg PO DAILY Oxycodone (Oxycodone HCl) 5 Mg Tab 2.5 Mg PO Q4H PRN Glucophage (Metformin HCl) 500 Mg Tab 500 Mg PO BIDPC Levemir Inj (Insulin Detemir) 1,000 unit/ 10 ML Vial 5 Units SQ HS Baclofen 10 Mg Tab 5 Mg PO DAILY Duoneb (Ipratropium-Albuterol Neb) 0.5-2.5 Mg/3 Ml Neb 1 Nebule INH Q4HR NEB Akwa Tears Opth Ointment (Artificial Tears) 2-15-83% Oint 1 Applic EACH EYE Q12HR Review of Systems Except as stated in HPI: all other systems reviewed are Neg Physical Exam Narrative GENERAL: 50yo M unresponsive. SKIN: Focused skin assessment warm/dry. HEAD: Abrasion on bridge of nose. EYES: Pupils equal but unreactive bilaterally at 3mm. ENT: Dried blood in bilateral nostrils. No septal hematoma. NECK: Tracheostomy site intact. CARDIOVASCULAR: Regular rate and rhythm. No murmur appreciated. RESPIRATORY: Ventilated through trach. Bilateral breath sounds. GASTROINTESTINAL: Abdomen soft, non-tender, nondistended. MUSCULOSKELETAL: No obvious deformities. No clubbing. No cyanosis. No edema. All distal pulses intact. NEUROLOGICAL: Unresponsive with no sedation. Not withdrawing from pain. Pupils unreactive. Data Data Last Documented VS Vital Signs Date Time Temp Pulse Resp B/P Pulse Ox O2 Delivery O2 Flow Rate FiO2 09/06/16 17:05 89 20 134/83 97 Ventilator 60 09/06/16 15:[address] Brain W/O Iv Contrast(Rout) (09/06/16 ) Ct Cerv Spine W/O Contrast (09/06/16 ) Ct Facial Bones W/O Iv Cont (09/06/16 ) Complete Blood Count With Diff (09/06/16 15:29) Basic Metabolic Panel (Bmp) (09/06/16 15:29) Prothrombin Time / Inr (Pt) (09/06/16 15:29) Act Partial Throm Time (Ptt) (09/06/16 15:29) Type And Screen (09/06/16 15:29) Chest, Single Ap (09/06/16 ) Blood Culture (09/06/16 15:29) Lactic Acid Sepsis Protocol (09/06/16 15:29) Urinary Catheter Insert/Apply (09/06/16 15:29) Urinalysis - C+S If Indicated (09/06/16 15:29) Restraints Non-Violent STEPHANIE.Q3H (09/06/16 15:29) Troponin I (09/06/16 15:29) Ckmb (Isoenzyme) Profile (09/06/16 15:29) Vancomycin Inj (Vancomycin Inj) (09/06/16 16:24) Azithromycin Inj (Zithromax Inj) (09/06/16 16:24) Aztreonam Inj (Azactam Inj) (09/06/16 16:24) Sodium Chlor 0.9% 1000 Ml Inj (Ns 1000 M (09/06/16 16:30) Arterial Blood Gas (Abg) (09/06/16 15:50) Urine Culture (09/06/16 15:30) Admit Order (Ed Use Only) (09/06/16 17:10) Labs Laboratory Tests Test 09/06/16 09/06/16 09/06/16 09/06/16 15:15 15:30 15:40 15:50 White Blood Count 25.0 TH/MM3 Red Blood Count 4.44 MIL/MM3 Hemoglobin 11.9 GM/DL Hematocrit 38.4 % Mean Corpuscular Volume 86.5 FL Mean Corpuscular Hemoglobin 26.8 PG Mean Corpuscular Hemoglobin 31.0 % Concent Red Cell Distribution Width 14.7 % Platelet Count 384 TH/MM3 Mean Platelet Volume 8.8 FL Neutrophils (%) (Auto) 59.2 % Lymphocytes (%) (Auto) 34.2 % Monocytes (%) (Auto) 5.0 % Eosinophils (%) (Auto) 1.1 % Basophils (%) (Auto) 0.5 % Neutrophils # (Auto) 14.8 TH/MM3 Lymphocytes # (Auto) 8.5 TH/MM3 Monocytes # (Auto) 1.2 TH/MM3 Eosinophils # (Auto) 0.3 TH/MM3 Basophils # (Auto) 0.1 TH/MM3 CBC Comment AUTO DIFF Differential Total Cells 100 Counted Neutrophils % (Manual) 64 % Band Neutrophils % 6 % Lymphocytes % 23 % Monocytes % 3 % Eosinophils % 1 % Basophils % 1 % Neutrophils # (Manual) 18.0 TH/MM3 Metamyelocytes 2 % Differential Comment FINAL DIFF MANUAL Platelet Estimate NORMAL Platelet Morphology Comment NORMAL Prothrombin Time 10.9 SEC Prothromb Time International 1.0 RATIO Ratio Activated Partial 26.1 SEC Thromboplast Time Sodium Level 145 MEQ/L Potassium Level 3.6 MEQ/L Chloride Level 104 MEQ/L Carbon Dioxide Level 25.4 MEQ/L Anion Gap 16 MEQ/L Blood Urea Nitrogen 14 MG/DL Creatinine 1.29 MG/DL Estimat Glomerular Filtration 59 ML/MIN Rate Random Glucose 227 MG/DL Calcium Level 8.1 MG/DL Phosphorus Level 8.2 MG/DL Magnesium Level 2.3 MG/DL Total Creatine Kinase 71 U/L Troponin I 0.02 NG/ML Blood Type O POSITIVE Antibody Screen NEGATIVE Urine Color YELLOW Urine Turbidity CLEAR Urine pH 7.0 Urine Specific [place] 1.012 Urine Protein 300 mg/dL Urine Glucose (UA) 70 mg/dL Urine Ketones TRACE mg/dL Urine Occult Blood SMALL Urine Nitrite NEG Urine Bilirubin NEG Urine Urobilinogen LESS THAN 2.0 MG/DL Urine Leukocyte Esterase NEG Urine RBC 23 /hpf Urine WBC 30 /hpf Urine Amorphous Sediment RARE Urine Bacteria OCC /hpf Urine Hyaline Casts 9 /lpf Urine Mucus FEW /lpf Microscopic Urinalysis Comment CATH-CULTURE IND Urine Opiates Screen NEG Urine Barbiturates Screen NEG Urine Amphetamines Screen NEG Urine Benzodiazepines Screen NEG Urine Cocaine Screen NEG Urine Cannabinoids Screen NEG Lactic Acid Level 8.3 mmol/L Blood Gas Puncture Site RT RADIAL Blood Gas Patient Temperature 98.6 Blood Gas HCO3 25 mmol/L Blood Gas Base Excess -1.5 mmol/L Blood Gas Oxygen Saturation 98 % Arterial Blood pH 7.26 Arterial Blood Partial 56 mmHg Pressure CO2 Arterial Blood Partial 324 mmHG Pressure O2 Arterial Blood Oxygen Content 17.7 Vol % Arterial Blood 0.5 % Carboxyhemoglobin Arterial Blood Methemoglobin 0.9 % Blood Gas Hemoglobin 12.2 G/DL Oxygen Delivery Device VENTILATOR Blood Gas Ventilator Setting PRVC/16/500/0.9/+5 Blood Gas Inspired Oxygen 100 % MDM Medical Decision Making Medical Screen Exam Complete: Yes Emergency Medical Condition: Yes Interpretation(s) EKG: Sinus tachycardia at 114bpm. PVC. Normal axis. Poor baseline. Differential Diagnosis Respiratory arrest vs. MO vs. ICH vs. CVA vs. PE Narrative Course 50yo M with recent hospitalization and tracheostomy here s/p cardiac arrest. Pt may have had a respiratory arrest and subsequent cardiac arrest. He is not on any sedation and still unresponsive. Labs reviewed, leukocytosis at 25,000. Lactic acid elevated at 8.3, likely from cardiac arrest. Troponin negative. UA showed WBC 30. CTcspine showed no acute fracture or subluxation. Consolidation of right lung apex with patchy airspace disease in left lung apex , may be aspiration. CXR showed tracheostomy tube and NG tube in good position. Left upper lung infiltrates. Pt given vancomycin, aztreonam and azithromycin. CT brain negative. CT maxillofacial showed no acute bony fracture. Discussed with aircraft time clerk Dr. Conner and accepted to his service. Pt transferred to ICU for induced hypothermia. Critical Care Narrative Aggregate critical care time was 45 minutes. Time to perform other separately billable procedures was not included in the critical care time. My time did not include minutes spent treating any other patients simultaneously or on activities that did not directly contribute to the patient's treatment. The services I provided to this patient were to treat and/or prevent clinically significant deterioration that could result in: cardiovascular collapse or . I provided critical care services requiring my management, as noted below: Chart data review, documentation time, medication orders and management, vital sign assessments/reviewing monitor data, ordering and reviewing lab tests, ordering and interpreting/reviewing x-rays and diagnostic studies, care of the patient and discussion of the patient with the admitting physicians. Diagnosis Primary Impression: Cardiac arrest Admitting Information Admitting Physician Requests: Admit Nataly Girard DO Sep 06, 2016 15:48
[2016-09-06 16:10] LABS: AUTOMATED NEUTROPHIL # 14.8 TH/MM3 (1.8-7.7); BASOPHIL # 0.1 TH/MM3 (0-0.2); BASOPHIL % 0.5 % (0.0-2.0); EOSINOPHIL # 0.3 TH/MM3 (0-0.4); EOSINOPHIL % 1.1 % (0.0-4.0); HEMATOCRIT 38.4 % (39.0-51.0); LYMPH % 34.2 % (9.0-44.0); LYMPHOCYTE # 8.5 TH/MM3 (1.0-4.8); MEAN CELL VOLUME 86.5 FL (80.0-100.0); MEAN CORPUSCULAR HEMOGLOBIN 26.8 PG (27.0-34.0); NEUT % 59.2 % (16.0-70.0); PLATELET COUNT 384 TH/MM3 (150-450); RED BLOOD COUNT 4.44 MIL/MM3 (4.50-5.90); RED CELL DISTRIBUTION WIDTH 14.7 % (11.6-17.2)
[2016-09-06 16:15] LABS: HEMO FLAGS AUTO DIFF
--- NOTE | 2016-09-06 16:15 | RADRPT ---
EXAM DATE/TIME: 09/06/2016 15:30 [facility] COMPARISON: CHEST SINGLE AP, June 30, 2016, 6:07. INDICATIONS : Post cardiac arrest, tracheostomy and OG tube placement. MEDICAL HISTORY : None. SURGICAL HISTORY : None. ENCOUNTER: Initial ACUITY: 1 day PAIN SCORE: Non-responsive. LOCATION: Bilateral chest FINDINGS: There is an tracheostomy tube and NG tube in place. These devices appear to be in good position. Ther e is no pneumothorax. The heart size is enlarged but stable. There is mild elevation of the right hem idiaphragm. Mild interstitial infiltrates in the left upper lung. No definite pleural effusions. The bony structures are stable. CONCLUSION: 1. The tracheostomy tube and NG tube appear in good position. 2. Mild interstitial infiltrates are seen in the left upper lung. 3. Otherwise, no significant changes prior study. Rodrigo Martinez MD on September 06, 2016 at 16:12 Board Certified Radiologist. This report was verified electronically.
[2016-09-06] MEDS ORDERED: VANCOMYCIN INJ 1 MG in SODIUM CHLOR 0.9% 250 ML INJ 250 ML IV STA (16:24)
[2016-09-06] MEDS ORDERED: AZITHROMYCIN INJ 500 MG in SODIUM CHLOR 0.9% 250 ML INJ 250 ML IV STA (16:24)
[2016-09-06] MEDS ORDERED: AZTREONAM INJ 2,000 MG in SODIUM CHLORIDE 0.9% INJ 100 ML IV STA (16:24)
[2016-09-06 16:27] LABS: BLOOD GAS BASE EXCESS -1.5 mmol/L (-2-2); BLOOD GAS CARBOXYHEMOGLOBIN 0.5 % (0-4); BLOOD GAS HCO3 25 mmol/L (22-26); BLOOD GAS METHEMOGLOBIN 0.9 % (0-2); BLOOD GAS O2 HGB SATURATION 98 % (90-100); BLOOD GAS OXYGEN CONTENT 17.7 Vol % (12.0-20.0); BLOOD GAS PCO2 56 mmHg (38-42); BLOOD GAS PO2 324 mmHG (61-120); BLOOD GAS TOTAL HGB 12.2 G/DL (12.0-16.0); TEMP CORR TO 98.6
[2016-09-06 16:28] LABS: CRITICAL VALUE YES; OXYGEN DEVICE VENTILATOR
[2016-09-06 16:29] LABS: DRAW SITE RT RADIAL; FIO2 100 %; NUMBER OF ARTERIAL PUNCTURES 1; STAT YES; ULNAR PULSE PRESENT; VENT SETTINGS PRVC/16/500/0.9/+5
[2016-09-06 16:29] LABS: APTT (PATIENT) 26.1 SEC (24.3-30.1); PROTHROMBIN TIME - PATIENT 10.9 SEC (9.8-11.6)
[2016-09-06 16:30] LABS: BICARBONATE 25.4 MEQ/L (21.0-32.0); POTASSIUM 3.6 MEQ/L (3.5-5.1)
[2016-09-06] MEDS ORDERED: SODIUM CHLOR 0.9% 1000 ML INJ 1,000 ML IV ONE ×3 (16:30→20:00)
--- NOTE | 2016-09-06 16:45 | RADRPT ---
EXAM DATE/TIME: 09/06/2016 16:07 [facility] COMPARISON: No previous studies available for comparison. INDICATIONS : Post cardiac arrest, found on floor at home. RADIATION DOSE: 69.15 CTDIvol (mGy) MEDICAL HISTORY : Diabetes mellitus type 1. SURGICAL HISTORY : Non-responsive. ENCOUNTER: Initial ACUITY: 1 day PAIN SCALE: Non-responsive LOCATION: cranial TECHNIQUE: Multiple contiguous axial images were obtained of the head. Using automated exposure control and adj ustment of the mA and/or kV according to patient size, radiation dose was kept as low as reasonably a chievable to obtain optimal diagnostic quality images. DICOM format image data is available electro nically for review and comparison. FINDINGS: CEREBRUM: The ventricles are normal for age. No evidence of midline shift, mass lesion, hemorrhage or acute in farction. No extra-axial fluid collections are seen. POSTERIOR FOSSA: The cerebellum and brainstem are intact. The 4th ventricle is midline. The cerebellopontine angle i s unremarkable. EXTRACRANIAL: The visualized portion of the orbits is intact. SKULL: The calvaria is intact. No evidence of skull fracture. CONCLUSION: 1. No acute intracranial hemorrhage. 2. Unremarkable exam for patient's age. Rodrigo Martinez MD on September 06, 2016 at 16:41 Board Certified Radiologist. This report was verified electronically.
[2016-09-06 16:56] LABS: BACTERIA, URINE OCC /hpf; BLOOD, URINE SMALL (NEG); GLUCOSE,URINE 70 mg/dL (NEG); HYALINE CAST, URINE 9 /lpf (RARE); KETONE, URINE TRACE mg/dL (NEG); MUCUS URINE FEW /lpf (OCC); NITRITE,URINE NEG (NEG); URINE COLOR YELLOW (YELLW/STRAW)
[2016-09-06 16:57] LABS: COMMENT (UR) CATH-CULTURE IND; CULTURE IF INDICATED CATH CULTURE IND
[2016-09-06 16:59] LABS: BANDS 6 % (0-6); BASOPHILS 1 % (0-2); EOSINOPHILS 1 % (0-4); METAMYELOCYTES 2 % (0-1); PLATELET ESTIMATE SMEAR NORMAL (NORMAL); PLATELET MORPHOLOGY NORMAL (NORMAL); POLYS (SEG NEUTROPHILS) 64 % (16-70); SCAN/DIFF FINAL DIFF MANUAL; WBC DIFF SAMPLE 100
--- NOTE | 2016-09-06 17:03 | RADRPT ---
EXAM DATE/TIME: 09/06/2016 16:12 [facility] COMPARISON: No previous studies available for comparison. INDICATIONS : Post cardiac arrest, found on floor at home. RADIATION DOSE: 21.96 CTDIvol (mGy) MEDICAL HISTORY : Diabetes mellitus type 1. SURGICAL HISTORY : Non-responsive. ENCOUNTER: Initial ACUITY: 1 day PAIN SCORE: Non-responsive LOCATION: cranial TECHNIQUE: Volumetric scanning of the facial bones was performed. Using automated exposure control and adjustme nt of the mA and/or kV according to patient size, radiation dose was kept as low as reasonably achiev able to obtain optimal diagnostic quality images. DICOM format image data is available electronicall y for review and comparison. FINDINGS: ORBITS: The orbital and infraorbital osseous structures are intact. The retroconal structures have a normal configuration. No radiopaque foreign bodies are seen. NASAL BONE: The nasal bone and maxillary spine are intact ZYGOMATIC ARCHES: Symmetric without evidence of fracture. SINUSES: Chronic sinus disease in the ethmoid sinuses bilaterally. The other paranasal sinuses are grossly eva ar. No air-fluid levels. NASAL CAVITY: Mild nasal septal deviation to the left. Mucosal thickening in the nasal cavity bilaterally. SOFT TISSUES: No radiopaque foreign bodies seen. No soft-tissue swelling is seen. INTRACRANIAL: No intracranial air seen. CRIBIFORM PLATE: Grossly intact. CONCLUSION: 1. No acute bony fracture. 2. Chronic bilateral ethmoid sinus disease. Rodrigo Martinez MD on September 06, 2016 at 16:59 Board Certified Radiologist. This report was verified electronically.
--- NOTE | 2016-09-06 17:08 | RADRPT ---
EXAM DATE/TIME: 09/06/2016 16:12 [place] COMPARISON: CHEST SINGLE AP, September 06, 2016, 15:30. INDICATIONS : Post cardiac arrest, found on floor at home. RADIATION DOSE: 30.68 CTDIvol (mGy) MEDICAL HISTORY : Diabetes mellitus type 1. SURGICAL HISTORY : Non-responsive. ENCOUNTER: Initial ACUITY: 1 day PAIN SCALE: Non-responsive LOCATION: neck TECHNIQUE: Volumetric scanning of the cervical spine was performed. Multiplanar reconstructions in the sagittal, coronal and oblique axial planes were performed. Using automated exposure control and adjustment o f the mA and/or kV according to patient size, radiation dose was kept as low as reasonably achievable to obtain optimal diagnostic quality images. DICOM format image data is available electronically f or review and comparison. FINDINGS: Basilar body heights are maintained. Dens is intact. No acute bony fracture. There is loss of normal cervical lordosis. Sagittal alignment is maintained. Facets are normally aligned. There is a normal C 1-2 relationship. There is no significant prevertebral soft tissue swelling. There's multiple degener ative spondylosis of the cervical spine most prominently at C4-5, C5-6, and C6-7 with disc space narr owing and posterior osteophyte formation resulting in [id number] central canal stenosis. There is also variable right-sided [id number] neural foraminal stenosis from C4-C7. Prevertebral soft tissues demonstrate a nasogastric catheter and tracheostomy tube. The right lung apex is nearly comp letely consolidated. There is airspace disease in the left apex. CONCLUSION: 1. No acute fracture or subluxation. 2. Consolidation of the right lung apex with patchy airspace disease in the left lung apex. This may reflect aspiration, partial collapse, or edema. 3. Multilevel degenerative spondylosis of the cervical spine most prominently from C4-C7. Terrell Acevedo MD on September 06, 2016 at 16:59 Board Certified Radiologist. This report was verified electronically.
[2016-09-06] MEDS ORDERED: POTASSIUM CHLOR 40 MEQ PREMIX 100 ML IV PRN (17:15)
[2016-09-06] MEDS ORDERED: POTASSIUM PHOSPHATE INJ 30 MMOL in SODIUM CHLOR 0.9% 250 ML INJ 250 ML IV PRN (17:15)
[2016-09-06] MEDS ORDERED: POTASSIUM CHLOR 20 MEQ PREMIX 100 ML IV PRN ×2 (17:15)
[2016-09-06] MEDS ORDERED: POTASSIUM CHLORIDE 25 MEQ EFFERVESCENT TAB PO ONE (17:15)
[2016-09-06] MEDS ORDERED: CHLORHEXIDINE GLUCONATE 2 % 1 PACK (2 CLOTHS) TOP PRN (17:15)
[2016-09-06] MEDS ORDERED: MISCELLANEOUS NURSING INFORMATION XX SCH (17:15)
[2016-09-06] MEDS ORDERED: MAGNESIUM OXIDE 400 MG TAB PO PRN (17:15)
[2016-09-06] MEDS ORDERED: VECURONIUM BROMIDE 10 MG VIAL IV PRN (17:15)
[2016-09-06] MEDS ORDERED: ACETAMINOPHEN 650 MG/20.3 ML UDC NG PRN (17:15)
[2016-09-06] MEDS ORDERED: ARTIFICIAL TEARS OPTH OINT 3.5 APPLIC/3.5 GM TUBO EACH EYE PRN ×2 (17:15→19:45)
[2016-09-06] MEDS ORDERED: POTASSIUM PHOSPHATE MONOBASIC 500 MG TAB PO PRN (17:15)
[2016-09-06] MEDS ORDERED: MEPERIDINE HCL 25 MG/ML VIAL IVP PRN (17:15)
[2016-09-06] MEDS ORDERED: SODIUM PHOSPHATE INJ 30 MMOL in SODIUM CHLOR 0.9% 250 ML INJ 240 ML IV PRN (17:15)
[2016-09-06] MEDS ORDERED: POTASSIUM CHLORIDE 25 MEQ EFFERVESCENT TAB PO PRN (17:15)
[2016-09-06] MEDS ORDERED: MAGNESIUM SULFATE INJ 4 GM in SODIUM CHLORIDE 0.9% INJ 92 ML IV PRN (17:15)
[2016-09-06] MEDS ORDERED: LORazepam 2 MG/ML VIAL IV PRN ×2 (17:15→19:45)
[2016-09-06] MEDS ORDERED: POTASSIUM PHOSPHATE MONOBASIC 500 MG TAB PO/TUBE PRN (17:15)
[2016-09-06] MEDS ORDERED: MAGNESIUM SULFATE INJ 2 GM in SODIUM CHLORIDE 0.9% INJ 96 ML IV PRN (17:15)
--- NOTE | 2016-09-06 17:58 | HHI.HP ---
HPI Service Critical Care Medicine Primary Care Physician No Primary Care Physician Admission Diagnosis s/p cardiac arrest Diagnosis: (1) Cardiac arrest Diagnosis: Principal (2) Cardiac asystole Diagnosis: Principal (3) Anoxic encephalopathy Diagnosis: Principal (4) Myoclonus Diagnosis: Principal (5) Acute and chronic respiratory failure Diagnosis: Principal (6) Severe sepsis Diagnosis: Principal (7) HCAP (healthcare-associated pneumonia) Diagnosis: Principal (8) Lactic acidemia Diagnosis: Principal (9) Normocytic anemia Diagnosis: Secondary (10) Staphylococcus aureus pneumonia Diagnosis: Secondary (11) JACOB (obstructive sleep apnea) Diagnosis: Secondary (12) Diabetes mellitus type 2 in obese Diagnosis: Secondary (13) Morbid obesity with BMI of 50.0-59.9, adult Diagnosis: Secondary (14) Obesity hypoventilation syndrome Diagnosis: Secondary Chief Complaint: Cardiac arrest Travel History International Travel<30 Days: No Contact w/Intl Traveler <30 Da: No Traveled to Known Affected Are: No Sepsis Criteria SIRS Criteria (2 or more): Heart rate over 90, WBC > 63499, < 4000 or > 10% bands Sepsis Criteria (SIRS+source): Infect source susp/known Severe Sepsis (+one): Lactate >2 Septic Shock Criteria: Lactic acid >=4 Criteria Outcome: Meets severe sepsis criteria History of Present Illness Patient is a 50-year-old male with past medical history significant for super morbid obesity, type 2 diabetes, untreated sleep apnea who was admitted for acute on chronic hypoxic and hypercapnic respiratory failure with inability to wean for a very long time and had hospitalization from 03/24/16-08/13/16. During this period patient underwent tracheostomy Eric and had numerous complications including staph aureus and Pseudomonas pneumonia. He also needed a tracheostomy revision during hospitalization. He was eventually discharged on 08/13/16 to rehabilitation and then to home. He was brought in by [facility] s/p cardiac arrest. Apparently he was cleaning his tracheostomy tube complained of sudden onset shortness of breath with difficulty breathing and then had a witnessed collapse and became pulseless. Patient was in asystole when EMS arrived and had ROSC after epinephrine x4. Estimated down time was about 14 minutes. Pt was in sinus tachycardia when he arrived to ED. Breath sounds were equal bilaterally and pt was bagged from his tracheostomy site. Patient was placed ventilator on PRVC mode and ABG showed, hypercapnic respiratory failure. Abnormal labs include leukocytosis at 25,000, Lactic acid elevated at 8.3, likely from cardiac arrest and initial Troponin negative. UA showed WBC 30. CXR showed Left upper lung infiltrates. Pt given vancomycin, aztreonam and azithromycin in ED. CT brain negative. I evaluated the patient emergently in the ED. Patient's neuro exam was poor. He has not received any sedation or paralyzing medications. He is unconscious with No withdrawal to deep pain. Pupils are 1 mm, nonreactive. Patient had myoclonic jerks. Given the patient's relatively young age, and a normal CT of the brain, I will proceed with induced hypothermia for neuro protection. I reviewed the CAT scan with radiologist Dr. Martinez and he agrees there are no findings of early anoxic brain injury. In the ICU I placed the right femoral heat exchange catheter. Patient will also be on vancomycin and Azactam and Flagyl to cover for healthcare associated pneumonia. Patient will be loaded with 1 g of Cerebyx followed by 100 mg every 8 hours Review of Systems ROS Limitations: Intubated, Altered Mental Status, Unresponsive Past Family Social History Allergies: Coded Allergies: Penicillin (Verified Allergy, Severe, Swelling, 09/06/16) has tolerated cephalosporins Tetanus Toxoid (Verified Allergy, Unknown, Swelling, 09/06/16) Past Medical History Prolonged hospital course from 03/24/16-08/13/16 for acute on chronic hypercapnic respiratory failure, and associated complications History of staph aureus and Pseudomonas pneumonia during last hospitalization Super morbid obesity Type 2 diabetes Obstructive sleep apnea Obesity hypoventilation syndrome Past Surgical History Tracheostomy by Dr. Peralta Right carpal tunnel surgery Reported Medications Arzol Silver Nitrate Topical (Silver Nitrate-Potassium Nitrate Topical) 75-25 % Appl 1 Appl TOPICAL Q7D PRN Lyrica (Pregabalin) 75 Mg Cap 75 Mg PO Q12HR Pantoprazole (Pantoprazole Sodium) 40 Mg Tab 40 Mg PO DAILY Oxycodone (Oxycodone HCl) 5 Mg Tab 2.5 Mg PO Q4H PRN Glucophage (Metformin HCl) 500 Mg Tab 500 Mg PO BIDPC Levemir Inj (Insulin Detemir) 1,000 unit/ 10 ML Vial 5 Units SQ HS Baclofen 10 Mg Tab 5 Mg PO DAILY Duoneb (Ipratropium-Albuterol Neb) 0.5-2.5 Mg/3 Ml Neb 1 Nebule INH Q4HR NEB Akwa Tears Opth Ointment (Artificial Tears) 2-15-83% Oint 1 Applic EACH EYE Q12HR Active Ordered Medications Reviewed Family History Unable to obtain as the patient is unconscious Social History Unable to obtain but previous history indicates no smoking or alcohol use Physical Exam Vital Signs Vital Signs Date Time Temp Pulse Resp B/P Pulse Ox O2 Delivery O2 Flow Rate FiO2 09/06/16 17:45 88 18 126/79 96 Ventilator 60 09/06/16 17:20 87 19 128/81 97 Ventilator 60 09/06/16 17:05 89 20 134/83 97 Ventilator 60 09/06/16 16:30 91 19 125/79 92 Ventilator 60 09/06/16 16:26 100 100 09/06/16 16:25 96 21 125/78 93 Ventilator 60 09/06/16 16:20 93 16 118/76 98 09/06/16 16:15 91 19 117/64 98 Ventilator 100 09/06/16 16:10 88 19 127/68 99 Ventilator 100 09/06/16 16:00 91 16 119/72 96 09/06/16 15:45 91 19 118/76 99 Ventilator 100 09/06/16 15:35 99 100 09/06/16 15:30 97.7 104 28 161/89 99 Ventilator 100 09/06/16 15:25 88 ambu 100 09/06/16 15:15 25 99 Ventilator 100 09/06/16 15:15 83 15 122/67 96 09/06/16 15:15 100 Physical Exam GENERAL: 50-year-old morbidly obese male who is comatose on the vent, intermittent myoclonic jerks SKIN: Focused skin assessment warm/dry. HEAD: Abrasion on bridge of nose. EYES: Pupils equal but unreactive bilaterally at 1mm. ENT: Dried blood in bilateral nostrils, and cheeks. No septal hematoma. NECK: Tracheostomy site intact, with some surrounding blood CARDIOVASCULAR: Regular rate and rhythm. No murmur appreciated. RESPIRATORY: Ventilated through trach. Bilateral breath sounds, diminished at the bases GASTROINTESTINAL: Abdomen soft, morbidly obese MUSCULOSKELETAL: No obvious deformities. No clubbing. No cyanosis. No edema. All distal pulses intact. NEUROLOGICAL: Patient is comatose on no sedation. Pupils are 1 mm and nonreactive. Myoclonic jerks intermittently. No withdrawal to deep pain Laboratory Laboratory Tests Test 09/06/16 09/06/16 09/06/16 09/06/16 15:15 15:30 15:40 15:50 White Blood Count 25.0 Red Blood Count 4.44 Hemoglobin 11.9 Hematocrit 38.4 Mean Corpuscular Volume 86.5 Mean Corpuscular Hemoglobin 26.8 Mean Corpuscular Hemoglobin 31.0 Concent Red Cell Distribution Width 14.7 Platelet Count 384 Mean Platelet Volume 8.8 Neutrophils (%) (Auto) 59.2 Lymphocytes (%) (Auto) 34.2 Monocytes (%) (Auto) 5.0 Eosinophils (%) (Auto) 1.1 Basophils (%) (Auto) 0.5 Neutrophils # (Auto) 14.8 Lymphocytes # (Auto) 8.5 Monocytes # (Auto) 1.2 Eosinophils # (Auto) 0.3 Basophils # (Auto) 0.1 CBC Comment AUTO DIFF Differential Total Cells 100 Counted Neutrophils % (Manual) 64 Band Neutrophils % 6 Lymphocytes % 23 Monocytes % 3 Eosinophils % 1 Basophils % 1 Neutrophils # (Manual) 18.0 Metamyelocytes 2 Differential Comment FINAL DIFF MANUAL Platelet Estimate NORMAL Platelet Morphology Comment NORMAL Prothrombin Time 10.9 Prothromb Time International 1.0 Ratio Activated Partial 26.1 Thromboplast Time Sodium Level 145 Potassium Level 3.6 Chloride Level 104 Carbon Dioxide Level 25.4 Anion Gap 16 Blood Urea Nitrogen 14 Creatinine 1.29 Estimat Glomerular Filtration 59 Rate Random Glucose 227 Calcium Level 8.1 Total Creatine Kinase 71 Troponin I 0.02 Blood Type O POSITIVE Antibody Screen NEGATIVE Urine Color YELLOW Urine Turbidity CLEAR Urine pH 7.0 Urine Specific Noble 1.012 Urine Protein 300 Urine Glucose (UA) 70 Urine Ketones TRACE Urine Occult Blood SMALL Urine Nitrite NEG Urine Bilirubin NEG Urine Urobilinogen LESS THAN 2.0 Urine Leukocyte Esterase NEG Urine RBC 23 Urine WBC 30 Urine Amorphous Sediment RARE Urine Bacteria OCC Urine Hyaline Casts 9 Urine Mucus FEW Microscopic Urinalysis Comment CATH-CULTURE IND Lactic Acid Level 8.3 Blood Gas Puncture Site RT RADIAL Blood Gas Patient Temperature 98.6 Blood Gas HCO3 25 Blood Gas Base Excess -1.5 Blood Gas Oxygen Saturation 98 Arterial Blood pH 7.26 Arterial Blood Partial 56 Pressure CO2 Arterial Blood Partial 324 Pressure O2 Arterial Blood Oxygen Content 17.7 Arterial Blood 0.5 Carboxyhemoglobin Arterial Blood Methemoglobin 0.9 Blood Gas Hemoglobin 12.2 Oxygen Delivery Device VENTILATOR Blood Gas Ventilator Setting PRVC/16/500/0.9/+5 Blood Gas Inspired Oxygen 100 Date/Time Procedure Status Source Growth 09/06/16 15:40 Aerobic Blood Culture Received Blood Peripheral Pending 09/06/16 15:40 Anaerobic Blood Culture Received Blood Peripheral Pending 09/06/16 15:30 Urine Culture Received Urine Catheterized Urine Pending Result Diagram: 09/06/16 1515 09/06/[address] of the head shows no acute findings Chest x-ray left-sided infiltrates Septic Shock Reassessment Heart: Irregular Lungs: Course Skin: Warm Peripheral Pulses: Bounding Right Radial Bounding Left Radial Capillary Refill: Brisk Assessment and Plan Assessment and Plan Assessment: 50yM with super morbid obesity male with acute on chronic respiratory failure, now presenting with a systolic cardiac arrest, and evidence of severe anoxic brain injury. Given his age, I will proceed with induced hypothermia for neuro protection Neuro/Psych: Anoxic brain injury secondary to cardiac arrest Myoclonus - Initiate induced hypothermia per protocol, for neuro protection following cardiac arrest - Propofol and fentanyl for ventilator synchrony and vecuronium when necessary for shivering - CT of the head reviewed with radiologist, no evidence of cerebral edema at this time - Myoclonus in general indicates poor prognosis, but given the fact that CT looks normal at this time I will proceed with hypothermia - Cerebyx loading dose and maintenance ordered - EEG pending - Neuro consult MRI depending on clinical course Pulm: Acute hypercarbic respiratory failure Probable respiratory arrest followed by cardiac arrest JACOB/OHS History of staph aureus pneumonia and ARDS - Currently on PRVC mode of ventilation via trach (#6 Shiley) - Ventilator bundle. DuoNeb q6hr and PRN - Broad-spectrum antibiotics with vancomycin and Zosyn CV: Asystolic cardiac arrest Lactic acidosis from cardiac arrest - From the history that appears like patient had respiratory arrest followed by cardiac arrest - Status post CPR for approximately 14 minutes and epinephrine 4 followed by ROSC. Evidence of severe anoxic brain injury - Monitor HR and BP keep MAP>65mmHg - Trend serial troponins, lactic acid /FEN: - Monitor renal function, I/O's, electrolytes replacement per protocol. GI: - Nothing by mouth, IV Protonix ID: Severe sepsis Health care associated pneumonia Previous Staph aureus, pseudomonas pneumonia - Sputum blood and urine cultures ordered - Vancomycin and Azactam/Flagyl to cover for healthcare associated pneumonia Heme: Leukocytosis secondary to sepsis and stress Monitor CBC/coags Endo: Diabetes mellitus, poorly controlled - SSI for glycemic control with sliding scale insulin every 4 hours DVT, GI prophylaxis -Bilateral lower extremity SCDs. IV Protonix 40 mg daily. Lovenox 40 mg sq BID CCT 90 MIN excluding procedure Code Status Full Discussed Condition With Baltazar Harley MD Sep 06, 2016 17:58
[2016-09-06] MEDS ORDERED: RESP: ALBUTEROL 2.5 MG/IPRATROPIUM 0.5 MG NEB (PRN) NEB (18:00)
[2016-09-06] MEDS ORDERED: FOSPHENYTOIN SODIUM 500 MG PE/10 ML VIAL IV ONE (18:00)
[2016-09-06] MEDS ORDERED: PIPERACIL-TAZO 4.5 GM PREMIX 100 ML IV SCH (18:00)
[2016-09-06 18:04] LABS: LACTIC ACID GHOST NOT REPORTABLE
[2016-09-06 18:14] LABS: MAGNESIUM 2.3 MG/DL (1.5-2.5)
[2016-09-06 18:29] LABS: AMPHETAMINE, URINE NEG (NEG); BARBITURATES, URINE NEG (NEG); COCAINE, URINE NEG (NEG)
[2016-09-06] MEDS ORDERED: FOSPHENYTOIN INJ 1,000 MGPE in SODIUM CHLORIDE 0.9% INJ 50 ML IV ONE (18:30)
--- NOTE | 2016-09-06 18:42 | PD.PROCEDR ---
Central Line Procedure REASON FOR PROCEDURE Central venous access PROCEDURE PERFORMED Central line placement: Right femoral head exchange catheter CONSENT Procedure performed as an emergency ANESTHESIA Local injection of 1% Lidocaine DESCRIPTION OF THE PROCEDURE The patient was placed in supine, position. The area was exposed and cleansed with ChloraPrep, times two. Large sterile drape was used to cover the patient, with the site exposed, under sterile conditions including cap, face mask, sterile gown, and sterile gloves. On single attempt, the introducer needle was inserted with negative pressure in syringe and venous flash was obtained. The guide wire was then advanced without any restriction and the needle was removed. The dilator was used without any complications. Using Seldinger technique the 45 cm heat exchange catheter was advanced over the guide wire to a depth of 41 centimeters. The guide wire was removed. All ports were aspirated with dark venous blood return and flushed easily with sterile saline. All ports were capped. Antibiotic disc was placed around central line at puncture site. The central line was secured to the skin with two interrupted 2.0 silk sutures. The area was bandaged with sterile see-through central line bandage. COMPLICATIONS: No apparent complications ESTIMATED BLOOD LOSS: Less than 1 cc. Baltazar Conner MD Sep 06, 2016 18:42
[2016-09-06] MEDS ORDERED: Mix all IV Meds in NS IV SCH (19:45)
[2016-09-06] MEDS: SODIUM CHLORIDE 0.9% FLUSH 10 ML FLUSH IV FLUSH PRN ×4 (20:04→23:52)
[2016-09-06] MEDS: fentaNYL DRIP 250 ML IV SCH (20:05)
[2016-09-06] MEDS: CISATRACURIUM 100 MG/NS 250 ML IV SCH ×2 (20:06)
[2016-09-06] MEDS: PROPOFOL 1000 MG/100 ML INJ 100 ML IV SCH (20:06)
[2016-09-06] MEDS: AZTREONAM INJ 2,000 MG in SODIUM CHLORIDE 0.9% INJ 100 ML IV SCH (20:07)
[2016-09-06] MEDS: CHLORHEXIDINE 0.12% (ORAL KIT) 15 ML CUP MT SCH (20:08)
[2016-09-06] MEDS: NOREPINEPHRINE INJ 4 MG in SODIUM CHLOR 0.9% 250 ML INJ 246 ML IV SCH (20:17)
[2016-09-06] MEDS: ENOXAPARIN SODIUM 40 MG/0.4 ML SYRINGE SQ SCH (20:40)
[2016-09-06] MEDS: PANTOPRAZOLE SODIUM 40 MG VIAL IV PUSH SCH (20:40)
[2016-09-06 21:04] LABS: MAGNESIUM 1.9 MG/DL (1.5-2.5)
[2016-09-06] MEDS: RESP: ALBUTEROL 2.5 MG/IPRATROPIUM 0.5 MG NEB (SCH) NEB (21:27)
[2016-09-06] MEDS: INSULIN ASPART SUPPLEMENTAL SCALE SQ SCH (22:00)
[2016-09-06 22:18] LABS: BICARBONATE 26.9 MEQ/L (21.0-32.0)
[2016-09-06 22:21] LABS: POTASSIUM 2.9 MEQ/L (3.5-5.1)
[2016-09-06] MEDS: metroNIDAZOLE 500 MG INJ 100 ML IV SCH (22:38)
[2016-09-06] MEDS: PHENYTOIN INJ 100 MG/2 ML VIAL IV SCH (22:38)
[2016-09-06] MEDS: POTASSIUM CHLOR 40 MEQ PREMIX 100 ML IV PRN (22:53)
[2016-09-07] VITALS (30 sets, daily range): BP systolic 67–117; BP diastolic 41–71; PULSE 44–58; RESP 13–20; TEMP 91.5; O2SAT 100
[2016-09-07] MEDS: POTASSIUM CHLOR 40 MEQ PREMIX 100 ML IV PRN ×3 (01:05→19:41)
[2016-09-07] MEDS: INSULIN ASPART SUPPLEMENTAL SCALE SQ SCH ×6 (02:09→22:00)
[2016-09-07] MEDS: AZTREONAM INJ 2,000 MG in SODIUM CHLORIDE 0.9% INJ 100 ML IV SCH ×4 (02:10→19:33)
[2016-09-07 02:43] LABS: BICARBONATE 28.7 MEQ/L (21.0-32.0); MAGNESIUM 1.7 MG/DL (1.5-2.5); POTASSIUM 4.2 MEQ/L (3.5-5.1)
[2016-09-07] MEDS: metroNIDAZOLE 500 MG INJ 100 ML IV SCH ×4 (03:15→20:22)
[2016-09-07] MEDS: CHLORHEXIDINE GLUCONATE 2 % 1 PACK (2 CLOTHS) TOP SCH (04:00)
[2016-09-07] MEDS: fentaNYL DRIP 250 ML IV SCH ×3 (04:07→23:09)
[2016-09-07] MEDS: RESP: ALBUTEROL 2.5 MG/IPRATROPIUM 0.5 MG NEB (SCH) NEB ×4 (04:13→21:15)
[2016-09-07 05:37] LABS: BICARBONATE 26.7 MEQ/L (21.0-32.0); MAGNESIUM 1.7 MG/DL (1.5-2.5); POTASSIUM 3.7 MEQ/L (3.5-5.1)
[2016-09-07] MEDS: CISATRACURIUM 100 MG/NS 250 ML IV SCH ×4 (06:11→17:12)
[2016-09-07] MEDS: PHENYTOIN INJ 100 MG/2 ML VIAL IV SCH ×3 (06:11→21:29)
[2016-09-07] MEDS: PROPOFOL 1000 MG/100 ML INJ 100 ML IV SCH ×2 (06:12→14:54)
[2016-09-07] MEDS: CHLORHEXIDINE 0.12% (ORAL KIT) 15 ML CUP MT SCH ×2 (08:42→19:34)
--- NOTE | 2016-09-07 09:42 | HHI.CCPN ---
Subjective Remarks/Hospital Course Hospital Course: Patient is a 50-year-old male with past medical history significant for super morbid obesity, type 2 diabetes, untreated sleep apnea who was admitted for acute on chronic hypoxic and hypercapnic respiratory failure with inability to wean for a very long time and had hospitalization from 03/24/16-08/13/16. During this period patient underwent tracheostomy Eric and had numerous complications including staph aureus and Pseudomonas pneumonia. He also needed a tracheostomy revision during hospitalization. He was eventually discharged on 08/13/16 to rehabilitation and then to home. He was brought in by [facility] s/p cardiac arrest. Apparently he was cleaning his tracheostomy tube complained of sudden onset shortness of breath with difficulty breathing and then had a witnessed collapse and became pulseless. Patient was in asystole when EMS arrived and had ROSC after epinephrine x4. Estimated down time was about 14 minutes. Pt was in sinus tachycardia when he arrived to ED. Breath sounds were equal bilaterally and pt was bagged from his tracheostomy site. Patient was placed ventilator on PRVC mode and ABG showed, hypercapnic respiratory failure. Abnormal labs include leukocytosis at 25,000, Lactic acid elevated at 8.3, likely from cardiac arrest and initial Troponin negative. UA showed WBC 30. CXR showed Left upper lung infiltrates. Pt given vancomycin, aztreonam and azithromycin in ED. CT brain negative. I evaluated the patient emergently in the ED. Patient's neuro exam was poor. He has not received any sedation or paralyzing medications. He is unconscious with No withdrawal to deep pain. Pupils are 1 mm, nonreactive. Patient had myoclonic jerks. Given the patient's relatively young age, and a normal CT of the brain, I will proceed with induced hypothermia for neuro protection. I reviewed the CAT scan with radiologist Dr. Martinez and he agrees there are no findings of early anoxic brain injury. In the ICU I placed the right femoral heat exchange catheter. Patient will also be on vancomycin and Azactam and Flagyl to cover for healthcare associated pneumonia. Patient will be loaded with 1 g of Cerebyx followed by 100 mg every 8 hours Subjective: 09/07: target temp reached at midnight. bradycardic, but uop adequate. map > 65. sputum gram stain with rare GPCs in pairs. on empiric abx. Objective Vital Signs Date Time Temp Pulse Resp B/P Pulse Ox O2 Delivery O2 Flow Rate FiO2 09/07/16 08:47 100 Ventilator 09/07/16 08:47 60 09/07/16 07:00 48 13 67/42 95/53 09/07/16 07:00 91.8 Intake and Output 09/06/16 09/06/16 09/07/16 08:00 16:00 00:00 Intake Total 3911 ml Output Total 1565 ml Balance 2346 ml Result Diagram: 09/06/16 1515 09/07/16 0420 Other Results Laboratory Tests Test 09/06/16 15:50 Blood Gas Puncture Site RT RADIAL Blood Gas Patient Temperature 98.6 Blood Gas HCO3 25 mmol/L (22-26) Blood Gas Base Excess -1.5 mmol/L (-2-2) Blood Gas Oxygen Saturation 98 % (90-100) Arterial Blood pH 7.26 (7.380-7.420) Arterial Blood Partial 56 mmHg (38-42) Pressure CO2 Arterial Blood Partial 324 mmHG Pressure O2 (61-120) Arterial Blood Oxygen Content 17.7 Vol % (12.0-20.0) Arterial Blood 0.5 % (0-4) Carboxyhemoglobin Arterial Blood Methemoglobin 0.9 % (0-2) Blood Gas Hemoglobin 12.2 G/DL (12.0-16.0) Oxygen Delivery Device VENTILATOR Blood Gas Ventilator Setting PRVC/16/500/0.9/+5 Blood Gas Inspired Oxygen 100 % Imaging CT of the head shows no acute findings Chest x-ray left-sided infiltrates Objective Remarks GENERAL: 50-year-old morbidly obese male who is comatose on the vent, sedated, paralyzed, induced hypothermia. HEENT: Abrasion on bridge of nose. Pupils equal but unreactive bilaterally at 1mm. Dried blood in bilateral nostrils, and cheeks. No septal hematoma. NECK: Tracheostomy site intact, clean and dry. CARDIOVASCULAR: Bradycardic rate, regular rhythm. sinus by tele. RESPIRATORY: Ventilated through trach. Bilateral breath sounds, diminished at the bases GASTROINTESTINAL: Abdomen soft, morbidly obese MUSCULOSKELETAL: No obvious deformities. No clubbing. No cyanosis. No edema. All distal pulses intact. NEUROLOGICAL: Patient is comatose. GCS 3, RASS -5. sedated and paralyzed. hypothermic. A/P Assessment and Plan Assessment: 50yM with super morbid obesity male with acute on chronic respiratory failure, now presenting with asystolic cardiac arrest, and evidence of severe hypoxic ischemic encephalopathy. Ongoing hypothermic protocol. remains very critically ill at this time on full support. continue protocol. will check serial lactates and abg to ensure adequate cardiac output. Neuro/Psych: Anoxic brain injury secondary to cardiac arrest Myoclonus - continue induced hypothermia per protocol, for neuro protection following cardiac arrest - Propofol and fentanyl for ventilator synchrony and Nimbex when necessary for shivering - Cerebyx maintenance ordered - EEG pending Pulm: Acute hypercarbic respiratory failure Probable respiratory arrest followed by cardiac arrest JACOB/OHS History of staph aureus pneumonia and ARDS - Currently on PRVC mode of ventilation via trach (#6 Shiley) - Ventilator bundle. DuoNeb q6hr and PRN - Broad-spectrum antibiotics with vancomycin and Zosyn - no SBT today given hypothermic protocol and neuromuscular blockade. CV: Asystolic cardiac arrest Lactic acidosis from cardiac arrest - From the history that appears like patient had respiratory arrest followed by cardiac arrest - Status post CPR for approximately 14 minutes and epinephrine 4 followed by ROSC. Evidence of severe anoxic brain injury - Monitor HR and BP keep MAP>65mmHg - Trend lactic acid /FEN: - Monitor renal function, I/O's, electrolytes replacement per protocol. GI: Super Morbid Obesity Acute protein calorie malnutrition- moderate - Nothing by mouth, IV Protonix ID: Severe sepsis Health care associated pneumonia Previous Staph aureus, pseudomonas pneumonia - Sputum blood and urine cultures ordered - Vancomycin and Azactam/Flagyl to cover for healthcare associated pneumonia - f/u sputum cultures, blood cultures. Heme: Leukocytosis secondary to sepsis and stress Monitor CBC/coags Endo: Diabetes mellitus, poorly controlled - SSI for glycemic control with sliding scale insulin every 4 hours DVT, GI prophylaxis -Bilateral lower extremity SCDs. IV Protonix 40 mg daily. Lovenox 40 mg sq BID CCT 40 MIN excluding procedures Js Garrett MD Sep 07, 2016 09:42
[2016-09-07 10:35] LABS: BLOOD GAS BASE EXCESS -1.7 mmol/L (-2-2); BLOOD GAS CARBOXYHEMOGLOBIN 0.9 % (0-4); BLOOD GAS HCO3 24 mmol/L (22-26); BLOOD GAS METHEMOGLOBIN 1.3 % (0-2); BLOOD GAS O2 HGB SATURATION 97 % (90-100); BLOOD GAS OXYGEN CONTENT 16.3 Vol % (12.0-20.0); BLOOD GAS PCO2 52 mmHg (38-42); BLOOD GAS PO2 156 mmHg (61-120); BLOOD GAS TOTAL HGB 11.8 G/DL (12.0-16.0); TEMP CORR TO 98.6
[2016-09-07 10:37] LABS: CRITICAL VALUE YES; DRAW SITE ART LINE; FIO2 60 %; OXYGEN DEVICE VENTILATOR; VENT SETTINGS PRVC 18/500/0.9/+5/
[2016-09-07 10:38] LABS: STAT NO; ULNAR PULSE PRESENT
--- NOTE | 2016-09-07 12:39 | MG ---
cc: MONSERRAT HERNANDEZ M.D., SINOJ K. MD Lab No: [id number] Date: 09/07/2016 Age: 50 Sex: M Photic stimulation. 10 mcg Diprivan, 250 mcg fentanyl, Nimbex 1 mcg. Intubated. Sitting down cleaning his trach when he suddenly had difficulty breathing, collapsed, fell forward, became pulseless and unresponsive. History of snoring with sleep apnea, diabetes. He is on Dilantin, metronidazole, Protonix, Lovenox, insulin, norepinephrine. DESCRIPTION OF RECORD There is a lot of background artifact but overall high amplitude waves are seen and the wind commissioning technician puts in trach over this. I am not sure if it is background noise from the tracheostomy, but true spike and slow waves are seen bilaterally. The background then becomes very attenuated and then the background becomes high amplitude, some spike and slow waves, 3-4 Hz, may very well be a type of burst suppressed pattern from medications. A lot of artifact in the EKG as well cannot be interpreted but there are high amplitude spike and slow waves bilaterally alternating with severe attenuated background, more of a burst pattern. Photic stimulation does not change the background. The background continues in this paroxysmal mode. IMPRESSION Abnormal EEG due to what appears to be some spike and slow waves bilaterally followed by a suppressed pattern, may be secondary to medication versus possible anoxia. Clinical correlation. Monserrat Hernandez MD DF/BT /12:13 PM /12:33 PM
[2016-09-07 12:47] LABS: BLOOD GAS CARBOXYHEMOGLOBIN 0.8 % (0-4); BLOOD GAS HCO3 23 mmol/L (22-26); BLOOD GAS METHEMOGLOBIN 1.2 % (0-2); BLOOD GAS O2 HGB SATURATION 97 % (90-100); BLOOD GAS OXYGEN CONTENT 16.5 Vol % (12.0-20.0); BLOOD GAS PCO2 44 mmHg (38-42); BLOOD GAS PO2 159 mmHg (61-120); BLOOD GAS TOTAL HGB 11.9 G/DL (12.0-16.0); CRITICAL VALUE NO; FIO2 60 %; OXYGEN DEVICE VENTILATOR; VENT SETTINGS PRVC/20/550/0.9/+5
[2016-09-07 12:48] LABS: DRAW SITE ART LINE; STAT NO; TEMP CORR TO 98.6; ULNAR PULSE PRESENT
--- NOTE | 2016-09-07 13:37 | EKG ---
Date Performed: 09/06/2016 Time Performed: 15:22:42 PTAGE: 50 years EKG: SINUS TACHYCARDIA NONSPECIFIC ST & T-WAVE ABNORMALITY ABNORMAL RHYTHM ECG PREVIOUS TRACING : 09/06/2016 15.22 Compared to the prior study of 06/20/2016, nonspecific ST-T changes are new. DOCTOR: Kyaw Arnold Interpretating Date/Time 09/07/2016 13:33:28
--- NOTE | 2016-09-07 14:01 | PD.CONS ---
Consult Service Palliative Care . Consult Requested By Dr. Garrett . Primary Care Physician Dr. Kinsey . Reason for Consultation a. To assist with evaluation and management of symptoms including: dyspnea, encephalopathy. b. To assist medical decision maker(s) with: better understanding of current medical conditions; weighing benefits/burdens of medical treatment options; making medical treatment decisions. . HPI History of Present Illness Mr. Leger is a 50 year old patient with past medical history of morbid obesity , type 2 diabetes and untreated sleep apnea. Patient was previously admitted to [facility] from 03/24/16-08/13/16 for acute on chronic hypoxic and hypercapnic respiratory failure requiring trach/PEG with inability to wean from vent for a prolonged period of time, well known to Palliative care service. He had numerous complications including staph aureus and Pseudomonas pneumonia. He also needed a tracheostomy revision during hospitalization. Goals remained aggressive throughout prior admission. He was eventually discharged on 08/13/16 to rehabilitation and then to home. Patient presented to [facility] emergency room via [facility] on 09/06/16 status post cardiac arrest. Notes indicate he was cleaning his tracheostomy tube complained of sudden onset shortness of breath with difficulty breathing and then had a witnessed collapse and became pulseless. Patient was in asystole when EMS arrived, was given epinephrine x 4 with ROSC after about 14 minutes. He was in sinus tachycardia when he arrived to ED. Breath sounds were equal bilaterally and patient was bagged from his tracheostomy site. Patient was placed on mechanical ventilator. ABG showed hypercapnic respiratory failure. Additional abnormal labs included leukocytosis WBC 25,000, lactic acid was elevated at 8.3, thought to be secondary to cardiac arrest. Initial Troponin negative 0.02. Urinalysis + WBC 30, culture indicated, results pending. Chest x-ray revealed mild interstitial infiltrates left upper lung. CT brain no acute intracranial hemorrhage. CT cervical spine revealed no acute fracture, consolidation right lung apex with patchy airspace disease in the left lung apex , may reflect aspiration, partial collapse or edema, multilevel degenerative spondylosis of the cervical spine C4 C7. Maxillofacial CT no acute bony fracture, chronic bilateral ethmoid sinus disease. Patient was started on antibiotics to cover health care associated pneumonia. Initial museum host/hostess note indicates poor neurologic exam off all sedation, was unconscious, no withdraw to deep pain, pupils 1 mm and nonreactive, noted to have myoclonic jerking. Given patient's young age, normal CT of the brain hypothermia is induced for neuro protection. He was started on Cerebyx. EEG with spike and slow waves bilaterally followed by suppression pattern, may be secondary to medication versus possible anoxia. Patient remains sedated and paralyzed on mech vent. Target temp reached at midnight. Bradycardic. Sputum staph aureus. Palliative care is consulted to assist with further clarify treatment goals. . Function/Cognitive Trajectory Patient was feeling well in the week prior to admission. He had actually gotten out of the house a few times to go to his PCP. He went to his sister's house when he went down. He was caring for trach by himself. . Review of Systems Constitutional: COMPLAINS OF: Fatigue, Weight loss, Pain, Generalized weakness Respiratory: COMPLAINS OF: Shortness of breath Cardiovascular: COMPLAINS OF: Dyspnea on Exertion Hematologic/Lymphatics: COMPLAINS OF: Bruising Other ROS: ROS per brother report. Pt unable to participate. Past Family Social History Coded Allergies: Penicillin (Verified Allergy, Severe, Swelling, 09/06/16) has tolerated cephalosporins Tetanus Toxoid (Verified Allergy, Unknown, Swelling, 09/06/16) *MDRO Multi-Drug Resistant Organism (Verified Adverse Reaction, Unknown, ) MRSA PCR Positive 09/06/16 Past Medical History Prolonged hospital course from 03/24/16-08/13/16 for acute on chronic hypercapnic respiratory failure, and associated complications History of staph aureus and Pseudomonas pneumonia during last hospitalization Super morbid obesity Type 2 diabetes Morbid obesity Obstructive sleep apnea, untreated Normocytic anemia Obesity hypoventilation syndrome . Past Surgical History Tracheostomy Trach revision PEG tube Right carpal tunnel surgery . Reported Medications Reported Medications Arzol Silver Nitrate Topical (Silver Nitrate-Potassium Nitrate Topical) 75-25 % Appl 1 Appl TOPICAL Q7D PRN Lyrica (Pregabalin) 75 Mg Cap 75 Mg PO Q12HR Pantoprazole (Pantoprazole Sodium) 40 Mg Tab 40 Mg PO DAILY Oxycodone (Oxycodone HCl) 5 Mg Tab 2.5 Mg PO Q4H PRN Glucophage (Metformin HCl) 500 Mg Tab 500 Mg PO BIDPC Levemir Inj (Insulin Detemir) 1,000 unit/ 10 ML Vial 5 Units SQ HS Baclofen 10 Mg Tab 5 Mg PO DAILY Duoneb (Ipratropium-Albuterol Neb) 0.5-2.5 Mg/3 Ml Neb 1 Nebule INH Q4HR NEB Akwa Tears Opth Ointment (Artificial Tears) 2-15-83% Oint 1 Applic EACH EYE Q12HR . Current Medications Medications (Trade) Dose Ordered Sig/Chapis Route Start Time Stop Time Status Last Admin Lorazepam 1 mg 1 mg Q1H PRN IV 09/06/16 17:15 Fentanyl Citrate 250 ml @ 0 mls/hr TITRATE IV 09/06/16 17:15 09/07/16 04:07 (Diprivan 1000 Mg/100ml Inj) 100 ml @ 0 mls/hr TITRATE IV 09/06/16 17:15 09/07/16 06:12 (Demerol Inj) 25 mg Q2H PRN IVP 09/06/16 17:15 (Tylenol 650 Mg/ 20 ml Liq) 650 mg Q6H PRN NG 09/06/16 17:15 (Norcuron 10 Mg Inj) 5 mg Q1H PRN IV 09/06/16 17:15 Artificial Tears 1 applic 1 applic Q4H PRN EACH EYE 09/06/16 17:15 Miscellaneous Information 0 ml @ 0 mls/hr UNSCH IV 09/06/16 17:15 (Levophed Inj/NS 250 ml Inj) 250 ml @ 0 mls/hr TITRATE IV 09/06/16 17:15 09/06/16 20:17 (Lovenox Inj) 40 mg Q24H SQ 09/06/16 18:00 09/06/16 20:40 Miscellaneous Information 1 Q361D XX 09/06/16 17:15 09/06/16 19:00 (Chlorhexidine 2% Cloth) 3 pack Taper DAILY@04 TOP 09/07/16 04:00 09/03/17 03:59 Chlorhexidine Gluconate 3 pack 3 pack UNSCH PRN TOP 09/06/16 17:15 Potassium Chloride 100 ml @ 50 mls/hr Q2H PRN IV 09/06/16 17:15 09/07/16 01:05 (KCl 20 Meq Premix Inj) 100 ml @ 50 mls/hr Q2H PRN IV 09/06/16 17:15 Potassium Bicarb/ Potassium Chloride 50 meq 50 meq UNSCH PRN PO 09/06/16 17:15 Potassium Chloride 100 ml @ 25 mls/hr UNSCH PRN IV 09/06/16 17:15 Potassium Chloride 100 ml @ 50 mls/hr Q2H PRN IV 09/06/16 17:15 (Magnesium Sulfate Inj/NS Inj) 100 ml @ 50 mls/hr UNSCH PRN IV 09/06/16 17:15 Magnesium Oxide 800 mg 800 mg UNSCH PRN PO 09/06/16 17:15 (Magnesium Sulfate Inj/NS Inj) 100 ml @ 50 mls/hr UNSCH PRN IV 09/06/16 17:15 Potassium Phosphate 2000 mg 2,000 mg Q4H PRN PO 09/06/16 17:15 (Sodium Phosphate Inj/NS 250 ml Inj) 250 ml @ 42 mls/hr UNSCH PRN IV 09/06/16 17:15 Potassium Phosphate 2000 mg 2,000 mg UNSCH PRN PO/TUBE 09/06/16 17:15 (Potassium Phosphate Inj/NS 250 ml Inj) 260 ml @ 42 mls/hr UNSCH PRN IV 09/06/16 17:15 (Peridex 0.12% Liq) 15 ml BID@08,20 MT 09/06/16 20:00 09/07/16 08:42 (NovoLOG SUPPLEMENTAL SCALE) 1 Q4H SQ 09/06/16 18:00 09/07/16 02:09 (Dilantin Inj) 100 mg Q8HR IV 09/06/16 22:00 09/07/16 06:11 Pantoprazole Sodium 40 mg 40 mg Q24H IV PUSH 09/06/16 20:00 09/06/16 20:40 Aztreonam 2000 mg/ Sodium Chloride 100 ml @ 200 mls/hr Q6H IV 09/06/16 20:00 09/07/16 08:42 Metronidazole 100 ml @ 100 mls/hr Q6H IV 09/06/16 21:00 09/07/16 08:42 (Nimbex Inj/NS 250 ml Inj) 250 ml @ 0 mls/hr TITRATE IV 09/06/16 19:30 09/07/16 06:11 Lorazepam 1 mg 1 mg Q1H PRN IV 09/06/16 19:45 Miscellaneous Information ml @ 0 mls/hr UNSCH IV 09/06/16 19:45 (NS Flush) 2 ml UNSCH PRN IV FLUSH 09/06/16 19:45 09/06/16 23:52 (NS Flush) 2 ml UNSCH PRN IV FLUSH 09/06/16 19:45 09/06/16 23:52 (Lacrilube Opht Oint) 1 applic Q4H PRN EACH EYE 09/06/16 19:45 09/06/16 23:51 . Family History Father of lung cancer at age 72 The from ovarian cancer at age 72. Family history of diabetes. . Substance Use Tobacco: None Alcohol: None Prescription med abuse: None Illicits: None . Psychosocial History Patient is , has 2 daughters, ages 27 and 23 who live in the [place] area. Has designated his brother Farhat as healthcare surrogate. 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 . Spiritual/Cultural Factors Unknown. . Health Care Surrogate: Copy in medical record Date completed: 03/26/16 . Health Care Surrogate(s): Has designated his brother Farhat as healthcare surrogate. Documented care wishes: No Living Will. . Today's verbally stated goals: Patient is not able to participate in decision-making due to clinical condition. . Family/friends goals: FULL CODE for now, wants to speak with family before changing status. Goals remain aggressive at this time. BrotherFarhat has a good understanding of current condition and that we need more time to further prognosticate. . Ethical and Legal Issues Patient is not able to participate in decision-making due to clinical condition. Has completed designation of health care surrogate (HCS) naming his brother Farhat Zarco as HCS. . Physical Exam Vital Signs Date Time Temp Pulse Resp B/P Pulse Ox O2 Delivery O2 Flow Rate FiO2 09/07/16 12:56 100 Ventilator 09/07/16 12:56 100 60 09/07/16 12:00 60 09/07/16 12:00 91.6 50 16 103/67 100 104/58 09/07/16 11:00 91.6 50 20 89/54 100 104/60 09/07/16 10:39 60 09/07/16 10:00 91.8 50 15 97/57 100 110/64 09/07/16 09:00 91.8 49 18 88/54 100 102/56 09/07/16 08:47 100 Ventilator 09/07/16 08:47 100 60 09/07/16 08:00 60 09/07/16 08:00 91.8 49 18 67/44 100 96/54 09/07/16 07:00 91.8 48 13 67/42 100 95/53 09/07/16 06:00 47 09/07/16 06:00 91.5 47 18 69/44 100 97/53 09/07/16 05:00 91.5 47 18 68/44 100 98/55 09/07/16 04:13 100 60 09/07/16 04:00 91.5 47 18 100 102/61 09/07/16 04:00 60 09/07/16 04:00 47 09/07/16 03:00 48 09/07/16 03:00 91.5 48 18 67/45 100 103/63 09/07/16 02:00 48 09/07/16 02:00 91.5 48 18 72/43 100 107/64 09/07/16 01:15 100 60 09/07/16 01:00 91.5 47 18 72/41 100 117/67 09/07/16 00:00 60 09/07/16 00:00 91.5 44 18 92/58 100 09/07/16 00:00 44 09/06/16 23:00 91.5 46 18 85/51 100 09/06/16 22:00 91.6 47 18 89/53 100 09/06/16 22:00 47 09/06/16 21:35 100 60 09/06/16 21:00 93.2 62 18 81/51 100 09/06/16 20:00 60 09/06/16 20:00 95.9 86 18 109/60 100 09/06/16 20:00 86 09/06/16 19:00 99.0 87 20 115/65 98 09/06/16 17:45 88 18 126/79 96 Ventilator 60 09/06/16 17:20 87 19 128/81 97 Ventilator 60 09/06/16 17:05 89 20 134/83 97 Ventilator 60 09/06/16 16:30 91 19 125/79 92 Ventilator 60 09/06/16 16:26 100 100 09/06/16 16:25 96 21 125/78 93 Ventilator 60 09/06/16 16:20 93 16 118/76 98 09/06/16 16:15 91 19 117/64 98 Ventilator 100 09/06/16 16:10 88 19 127/68 99 Ventilator 100 09/06/16 16:00 91 16 119/72 96 09/06/16 15:45 91 19 118/76 99 Ventilator 100 09/06/16 15:35 99 100 09/06/16 15:30 97.7 104 28 161/89 99 Ventilator 100 09/06/16 15:25 88 ambu 100 09/06/16 15:15 25 99 Ventilator 100 09/06/16 15:15 83 15 122/67 96 09/06/16 15:15 100 09/06/16 09/07/16 19:00 07:00 Intake Total 1250 ml 3539 ml Output Total 650 ml 1380 ml Balance 600 ml 2159 ml Intake IV Total 1250 ml 3539 ml Output Urine Total 550 ml 1380 ml Gastric Drainage Total 100 ml Exam CONSTITUTIONAL/GENERAL: This is an overweight patient, comatose, sedated and paralyzed on [facility] vent. TUBES/LINES/DRAINS: OG, Trach to vent, PIVs, right femoral line, Becker, SCDs SKIN: Dried blood on face. No jaundice, rashes, or lesions. Ecchymoses on upper extremities. No wounds seen anteriorly. Skin cool, hypothermic. HEAD: Atraumatic. Normocephalic. EYES: eyes closed. ENT: Unable to assess hearing. Nose with dried blood. NECK: Tracheostomy to vent, site clean and dry. CARDIOVASCULAR: bradycardia, rate, regular rhythm. RESPIRATORY/CHEST: Symmetric, unlabored respirations on vent. Breath sounds diminished bilaterally. GASTROINTESTINAL: Abdomen soft, protuberant. GENITOURINARY: Without palpable bladder distension. Becker catheter in place. MUSCULOSKELETAL: Extremities without clubbing, cyanosis, or edema. No mottling or clubbing. LYMPHATICS: No palpable cervical or supraclavicular adenopathy. NEUROLOGICAL: comatose. Sedated, paralyzed. PSYCHIATRIC: comatose. . Diagnostic Tests Laboratory Laboratory Tests Test 09/06/16 09/06/16 09/06/16 09/06/16 15:15 15:30 15:40 15:50 White Blood Count 25.0 TH/MM3 (4.0-11.0) Red Blood Count 4.44 MIL/MM3 (4.50-5.90) Hemoglobin 11.9 GM/DL (13.0-17.0) Hematocrit 38.4 % (39.0-51.0) Mean Corpuscular Volume 86.5 FL (80.0-100.0) Mean Corpuscular Hemoglobin 26.8 PG (27.0-34.0) Mean Corpuscular Hemoglobin 31.0 % Concent (32.0-36.0) Red Cell Distribution Width 14.7 % (11.6-17.2) Platelet Count 384 TH/MM3 (150-450) Mean Platelet Volume 8.8 FL (7.0-11.0) Neutrophils (%) (Auto) 59.2 % (16.0-70.0) Lymphocytes (%) (Auto) 34.2 % (9.0-44.0) Monocytes (%) (Auto) 5.0 % (0.0-8.0) Eosinophils (%) (Auto) 1.1 % (0.0-4.0) Basophils (%) (Auto) 0.5 % (0.0-2.0) Neutrophils # (Auto) 14.8 TH/MM3 (1.8-7.7) Lymphocytes # (Auto) 8.5 TH/MM3 (1.0-4.8) Monocytes # (Auto) 1.2 TH/MM3 (0-0.9) Eosinophils # (Auto) 0.3 TH/MM3 (0-0.4) Basophils # (Auto) 0.1 TH/MM3 (0-0.2) CBC Comment AUTO DIFF Differential Total Cells 100 Counted Neutrophils % (Manual) 64 % (16-70) Band Neutrophils % 6 % (0-6) Lymphocytes % 23 % (9-44) Monocytes % 3 % (0-8) Eosinophils % 1 % (0-4) Basophils % 1 % (0-2) Neutrophils # (Manual) 18.0 TH/MM3 (1.8-7.7) Metamyelocytes 2 % (0-1) Differential Comment FINAL DIFF MANUAL Platelet Estimate NORMAL (NORMAL) Platelet Morphology Comment NORMAL (NORMAL) Prothrombin Time 10.9 SEC (9.8-11.6) Prothromb Time International 1.0 RATIO Ratio Activated Partial 26.1 SEC Thromboplast Time (24.3-30.1) Sodium Level 145 MEQ/L (136-145) Potassium Level 3.6 MEQ/L (3.5-5.1) Chloride Level 104 MEQ/L (98-107) Carbon Dioxide Level 25.4 MEQ/L (21.0-32.0) Anion Gap 16 MEQ/L (5-15) Blood Urea Nitrogen 14 MG/DL (7-18) Creatinine 1.29 MG/DL (0.60-1.30) Estimat Glomerular Filtration 59 ML/MIN (>89) Rate Random Glucose 227 MG/DL (74-106) Calcium Level 8.1 MG/DL (8.5-10.1) Phosphorus Level 8.2 MG/DL (2.5-4.9) Magnesium Level 2.3 MG/DL (1.5-2.5) Total Creatine Kinase 71 U/L (39-308) Troponin I 0.02 NG/ML (0.02-0.05) Blood Type O POSITIVE Antibody Screen NEGATIVE Urine Color YELLOW (YELLW/STRAW) Urine Turbidity CLEAR (CLEAR) Urine pH 7.0 (5.0-8.5) Urine Specific [place] 1.012 (1.002-1.035) Urine Protein 300 mg/dL (NEG-TRACE) Urine Glucose (UA) 70 mg/dL (NEG) Urine Ketones TRACE mg/dL (NEG) Urine Occult Blood SMALL (NEG) Urine Nitrite NEG (NEG) Urine Bilirubin NEG (NEG) Urine Urobilinogen LESS THAN 2.0 MG/DL (LESS THAN 2.0) Urine Leukocyte Esterase NEG (NEG) Urine RBC 23 /hpf (0-3) Urine WBC 30 /hpf (0-5) Urine Amorphous Sediment RARE Urine Bacteria OCC /hpf (NONE) Urine Hyaline Casts 9 /lpf (RARE) Urine Mucus FEW /lpf (OCC) Microscopic Urinalysis Comment CATH-CULTURE IND Urine Opiates Screen NEG (NEG) Urine Barbiturates Screen NEG (NEG) Urine Amphetamines Screen NEG (NEG) Urine Benzodiazepines Screen NEG (NEG) Urine Cocaine Screen NEG (NEG) Urine Cannabinoids Screen NEG (NEG) Lactic Acid Level 8.3 mmol/L (0.4-2.0) Blood Gas Puncture Site RT RADIAL Blood Gas Patient Temperature 98.6 Blood Gas HCO3 25 mmol/L (22-26) Blood Gas Base Excess -1.5 mmol/L (-2-2) Blood Gas Oxygen Saturation 98 % (90-100) Arterial Blood pH 7.26 (7.380-7.420) Arterial Blood Partial 56 mmHg (38-42) Pressure CO2 Arterial Blood Partial 324 mmHG Pressure O2 (61-120) Arterial Blood Oxygen Content 17.7 Vol % (12.0-20.0) Arterial Blood 0.5 % (0-4) Carboxyhemoglobin Arterial Blood Methemoglobin 0.9 % (0-2) Blood Gas Hemoglobin 12.2 G/DL (12.0-16.0) Oxygen Delivery Device VENTILATOR Blood Gas Ventilator Setting [facility]//500/0.9/+5 Blood Gas Inspired Oxygen 100 % Test 09/06/16 09/06/16 09/06/16 09/06/16 17:41 19:51 20:49 22:15 Lactic Acid Level 4.2 mmol/L 3.6 mmol/L (0.4-2.0) (0.4-2.0) Sodium Level 145 MEQ/L (136-145) Potassium Level 2.9 MEQ/L (3.5-5.1) Chloride Level 109 MEQ/L (98-107) Carbon Dioxide Level 26.9 MEQ/L (21.0-32.0) Anion Gap 9 MEQ/L (5-15) Blood Urea Nitrogen 15 MG/DL (7-18) Creatinine 0.88 MG/DL (0.60-1.30) Estimat Glomerular Filtration 92 ML/MIN (>89) Rate Random Glucose 204 MG/DL (74-106) Calcium Level 7.7 MG/DL (8.5-10.1) Phosphorus Level 2.5 MG/DL (2.5-4.9) Magnesium Level 1.9 MG/DL 1.8 MG/DL (1.5-2.5) (1.5-2.5) Nasal Screen MRSA (PCR) MRSA DETECTED (NOT DETECT) Test 09/07/16 09/07/16 09/07/16 09/07/16 01:54 04:20 10:19 12:30 Sodium Level 145 MEQ/L 145 MEQ/L (136-145) (136-145) Potassium Level 4.2 MEQ/L 3.7 MEQ/L (3.5-5.1) (3.5-5.1) Chloride Level 110 MEQ/L 111 MEQ/L (98-107) (98-107) Carbon Dioxide Level 28.7 MEQ/L 26.7 MEQ/L (21.0-32.0) (21.0-32.0) Anion Gap 6 MEQ/L (5-15) 7 MEQ/L (5-15) Blood Urea Nitrogen 13 MG/DL (7-18) 13 MG/DL (7-18) Creatinine 0.83 MG/DL 0.68 MG/DL (0.60-1.30) (0.60-1.30) Estimat Glomerular Filtration 98 ML/MIN (>89) 123 ML/MIN Rate (>89) Random Glucose 181 MG/DL 137 MG/DL (74-106) (74-106) Calcium Level 7.5 MG/DL 7.6 MG/DL (8.5-10.1) (8.5-10.1) Magnesium Level 1.7 MG/DL 1.7 MG/DL (1.5-2.5) (1.5-2.5) Phenytoin (Dilantin) Level 9.1 MCG/ML (10.0-20.0) Blood Gas Puncture Site ART LINE ART LINE Blood Gas Patient Temperature 98.6 98.6 Blood Gas HCO3 24 mmol/L 23 mmol/L (22-26) (22-26) Blood Gas Base Excess -1.7 mmol/L -2.0 mmol/L (-2-2) (-2-2) Blood Gas Oxygen Saturation 97 % (90-100) 97 % (90-100) Arterial Blood pH 7.29 7.34 (7.380-7.420) (7.380-7.420) Arterial Blood Partial 52 mmHg (38-42) 44 mmHg (38-42) Pressure CO2 Arterial Blood Partial 156 mmHg 159 mmHg Pressure O2 (61-120) (61-120) Arterial Blood Oxygen Content 16.3 Vol % 16.5 Vol % (12.0-20.0) (12.0-20.0) Arterial Blood 0.9 % (0-4) 0.8 % (0-4) Carboxyhemoglobin Arterial Blood Methemoglobin 1.3 % (0-2) 1.2 % (0-2) Blood Gas Hemoglobin 11.8 G/DL 11.9 G/DL (12.0-16.0) (12.0-16.0) Oxygen Delivery Device VENTILATOR VENTILATOR Blood Gas Ventilator Setting PRVC PRVC/20/550/0.9/+5 18/500/0.9/+5/ Blood Gas Inspired Oxygen 60 % 60 % Result Diagram: 09/06/16 1515 09/07/16 0420 Microbiology Microbiology Date/Time Procedure Status Source Growth 09/06/16 15:30 Urine Culture Received Urine Catheterized Urine Pending 09/06/16 15:35 Aerobic Blood Culture - Preliminary Resulted Blood Peripheral NO GROWTH IN 1 DAY 09/06/16 15:35 Anaerobic Blood Culture - Preliminary Resulted Blood Peripheral NO GROWTH IN 1 DAY 09/06/16 15:40 Aerobic Blood Culture - Preliminary Resulted Blood Peripheral NO GROWTH IN 1 DAY 09/06/16 15:40 Anaerobic Blood Culture - Preliminary Resulted Blood Peripheral NO GROWTH IN 1 DAY 09/06/16 21:30 Gram Stain - Final Resulted Sputum Endotracheal 09/06/16 21:30 Sputum Culture Resulted Sputum Endotracheal Pending Imaging Last Impressions Maxillofacial CT 09/06/16 0000 Signed Impressions: Service Date/Time: September 16:12 - CONCLUSION: 1. No acute bony fracture. 2. Chronic bilateral ethmoid sinus disease. Rodrigo Martinez MD Head CT 09/06/16 0000 Signed Impressions: Service Date/Time: September 16:07 - CONCLUSION: 1. No acute intracranial hemorrhage. 2. Unremarkable exam for patient's age. Rodrigo Martinez MD Chest X-Ray 09/06/16 0000 Signed Impressions: Service Date/Time: September 15:30 - CONCLUSION: 1. The tracheostomy tube and NG tube appear in good position. 2. Mild interstitial infiltrates are seen in the left upper lung. 3. Otherwise, no significant changes prior study. Rodrigo Martinez MD Cervical Spine CT 09/06/16 0000 Signed Impressions: Service Date/Time: September 16:12 - CONCLUSION: 1. No acute fracture or subluxation. 2. Consolidation of the right lung apex with patchy airspace disease in the left lung apex. This may reflect aspiration, partial collapse, or edema. 3. Multilevel degenerative spondylosis of the cervical spine most prominently from C4-C7. Terrell Acevedo MD Procedures * 09/06/16 code blue, intubation, right femoral head exchange catheter. . Patient/Family Conference Present at Family Conference: Spoke with patient's brother Farhat Tian" via telephone. Family Conference Time (mins): 40 Family Conference Location: Telephone Issues Discussed: * Palliative care role, purpose, approach * Additional medical, psychosocial, and spiritual history * Patients general health, functional status, and cognitive changes in the months leading up to the current hospitalization * Patient/family understanding of the current medical problems * Patient/family understanding of prognosis * Patients goals of care as best understood from advance directives and/or conversations and/or values * Current medical treatment options and benefits/burdens of those options * Likely scenarios comparing ongoing aggressive care with a transition to comfort measures only * Questions answered to the best of my ability * Palliative care contact information provided Farhat, healthcare surrogate/brother has a good understanding of current medical condition. He verbalizes this seems much more serious than the patient' s prior admission and that he understands the patient may not do well this time. He desires continued aggressive care including FULL CODE at this time until he has the opportunity to speak with additional family members. Appreciates continued palliative care communications/support. . Assessment and Plan Disease Oriented Problem List: (1) Diabetes mellitus type 2 in obese (2) JACOB (obstructive sleep apnea) (3) Staphylococcus aureus pneumonia (4) Lactic acidemia (5) HCAP (healthcare-associated pneumonia) (6) Obesity hypoventilation syndrome (7) Acute and chronic respiratory failure (8) Myoclonus (9) Cardiac asystole (10) Anoxic encephalopathy (11) Cardiac arrest Symptom Scale: (1) Encephalopathy 0-10 Scale: Unable to quantify (2) Dyspnea 0-10 Scale: Unable to quantify (3) Pain 0-10 Scale: Unable to quantify Pertinent Non-Medical Issues Psychosocial: , has 2 daughters. Supported by his local brother/ HCS Farhat Leger. Spiritual: Legal:Patient is not able to participate in decision-making due to clinical condition. Has completed designation of health care surrogate (HCS) naming his brother Farhat Zarco as HCS. Ethical issues impacting care: . Important Contacts * Farhat Leger, brother/[facility]: [phone] * Gagandeep Leger, brother: [phone] . Prognosis Patient comatose, sedated, paralyzed following asystolic arrest with return of spontaneous circulation after proximally 14 minutes, possible anoxic brain injury, currently hypothermic (CODE COOL). Will need some time to monitor after sedation/paralytic are lifted to determine neurologic status. Overall prognosis given generalized poor health since March 2016 appears poor for meaningful recovery. Will need additional time to thoroughly prognosticate. . Code Status: Full Code Plan * Patient is not able to participate in decision-making due to clinical condition. Has completed designation of health care surrogate (HCS) naming his brother Farhat Leger as HCS. * FULL CODE * Palliative care met with patient/ family: Spoke with brotherFarhat (HCS) he desires FULL CODE for now, wants to speak with family before changing status. Goals remain aggressive at this time. BrotherFarhat has a good understanding of current condition and that we need more time to further prognosticate. Palliative care will meet with family again Saturday to further clarify goals. * SYMPTOMS: Pain: sedated and paralyzed at this time. Dyspnea: on mech vent. No new medication recommendations at this time. Will monitor. * Palliative care number provided. * Palliative care will continue to follow throughout hospital course to assist with symptom management and clarification of goals as needed. . Thank you for the opportunity to participate in the care of Mr. Leger. Attestation To help prompt me to consider important information that might be impacting today's encounter and assessment, information from prior notes written by myself or my colleagues may have been "brought forward" into today's note. My signature on this note, however, is an attestation that I personally performed the exam, history, and/or decision-making noted today, and, unless otherwise indicated, the interactions with patient, family, and staff as well as the review of records all occurred today. I also attest that the listed assessment and stated plan reflect my best clinical judgment today based on the combination of historical information, prior notes, and today's exam/ interactions. When time spent is documented, it refers only to time spent today by the signer, or if indicated, combined time spent today by collaborating physician/nurse practitioner. . Juju Ramos Sep 07, 2016 14:01
[2016-09-07 16:22] LABS: ALKALINE PHOSPHATASE 77 U/L (45-117); ALT (GPT) 45 U/L (12-78); ANION GAP 11 MEQ/L (5-15); AST (GOT) 35 U/L (15-37); BICARBONATE 25.9 MEQ/L (21.0-32.0); BLOOD UREA NITROGEN 16 MG/DL (7-18); CHLORIDE 108 MEQ/L (98-107); GLOMERULAR FILTRATION RATE 148 ML/MIN (>89); POTASSIUM 3.2 MEQ/L (3.5-5.1); SODIUM (NA) 145 MEQ/L (136-145); TOTAL BILIRUBIN ADULT 0.4 MG/DL (0.2-1.0)
[2016-09-07] MEDS: ENOXAPARIN SODIUM 40 MG/0.4 ML SYRINGE SQ SCH (17:12)
[2016-09-07] MEDS: PANTOPRAZOLE SODIUM 40 MG VIAL IV PUSH SCH (19:33)
[2016-09-08] VITALS (71 sets, daily range): BP systolic 20–154; BP diastolic 5–99; PULSE 56–224; RESP 18–21; TEMP 91.5–99.8; O2SAT 78–100
[2016-09-08] MEDS: INSULIN ASPART SUPPLEMENTAL SCALE SQ SCH ×6 (02:00→22:00)
[2016-09-08] MEDS: AZTREONAM INJ 2,000 MG in SODIUM CHLORIDE 0.9% INJ 100 ML IV SCH ×4 (02:51→20:44)
[2016-09-08] MEDS: metroNIDAZOLE 500 MG INJ 100 ML IV SCH ×4 (03:20→20:43)
[2016-09-08] MEDS: CHLORHEXIDINE GLUCONATE 2 % 1 PACK (2 CLOTHS) TOP SCH (03:20)
[2016-09-08 03:22] LABS: HEMATOCRIT 36.8 % (39.0-51.0); MEAN CELL VOLUME 82.1 FL (80.0-100.0); MEAN CORPUSCULAR HEMOGLOBIN 27.2 PG (27.0-34.0); MEAN CORPUSCULAR HGB CONC 33.2 % (32.0-36.0); PLATELET COUNT 308 TH/MM3 (150-450); RED BLOOD COUNT 4.49 MIL/MM3 (4.50-5.90); RED CELL DISTRIBUTION WIDTH 14.7 % (11.6-17.2); REVIEW FLAG FINAL; WHITE BLOOD COUNT 19.2 TH/MM3 (4.0-11.0)
[2016-09-08 03:55] LABS: BICARBONATE 28.3 MEQ/L (21.0-32.0); POTASSIUM 3.5 MEQ/L (3.5-5.1)
[2016-09-08] MEDS: RESP: ALBUTEROL 2.5 MG/IPRATROPIUM 0.5 MG NEB (SCH) NEB ×4 (04:39→19:54)
[2016-09-08] MEDS: PHENYTOIN INJ 100 MG/2 ML VIAL IV SCH ×3 (05:27→22:35)
[2016-09-08] MEDS ORDERED: ROCURONIUM INJ 50 MG/5 ML VIAL ONE (07:44)
[2016-09-08] MEDS ORDERED: ADENOSINE IV SOLN 3 MG/ML 2 ML VIAL ONE (07:50)
[2016-09-08] MEDS ORDERED: METOPROLOL TARTRATE 5 MG/5 ML VIAL IV PUSH PRN (08:00)
[2016-09-08] MEDS ORDERED: ESMOLOL HCL 100 MG/10 ML VIAL IV ONE (08:00)
--- NOTE | 2016-09-08 08:27 | HHI.CCPN ---
Subjective Remarks/Hospital Course Hospital Course: Patient is a 50-year-old male with past medical history significant for super morbid obesity, type 2 diabetes, untreated sleep apnea who was admitted for acute on chronic hypoxic and hypercapnic respiratory failure with inability to wean for a very long time and had hospitalization from 03/24/16-08/13/16. During this period patient underwent tracheostomy Eric and had numerous complications including staph aureus and Pseudomonas pneumonia. He also needed a tracheostomy revision during hospitalization. He was eventually discharged on 08/13/16 to rehabilitation and then to home. He was brought in by [facility] s/p cardiac arrest. Apparently he was cleaning his tracheostomy tube complained of sudden onset shortness of breath with difficulty breathing and then had a witnessed collapse and became pulseless. Patient was in asystole when EMS arrived and had ROSC after epinephrine x4. Estimated down time was about 14 minutes. Pt was in sinus tachycardia when he arrived to ED. Breath sounds were equal bilaterally and pt was bagged from his tracheostomy site. Patient was placed ventilator on PRVC mode and ABG showed, hypercapnic respiratory failure. Abnormal labs include leukocytosis at 25,000, Lactic acid elevated at 8.3, likely from cardiac arrest and initial Troponin negative. UA showed WBC 30. CXR showed Left upper lung infiltrates. Pt given vancomycin, aztreonam and azithromycin in ED. CT brain negative. I evaluated the patient emergently in the ED. Patient's neuro exam was poor. He has not received any sedation or paralyzing medications. He is unconscious with No withdrawal to deep pain. Pupils are 1 mm, nonreactive. Patient had myoclonic jerks. Given the patient's relatively young age, and a normal CT of the brain, I will proceed with induced hypothermia for neuro protection. I reviewed the CAT scan with radiologist Dr. Martinez and he agrees there are no findings of early anoxic brain injury. In the ICU I placed the right femoral heat exchange catheter. Patient will also be on vancomycin and Azactam and Flagyl to cover for healthcare associated pneumonia. Patient will be loaded with 1 g of Cerebyx followed by 100 mg every 8 hours Subjective: 09/07: target temp reached at midnight. bradycardic, but uop adequate. map > 65. sputum gram stain with rare GPCs in pairs. on empiric abx. 09/08: rewarmed this morning. on sedation and paralytic hold, patient had severe myoclonus causing vent dyssynchrony and biting of lips and tongue despite bite block. required re-paralyzation to control his myoclonus. EEG and MRI ordered. I was called back again to the bedside for tachycardia and hypotension, HR > 160 which appeared to be SVT. EKG was suspicious for SVT. I gave 12mg adenosine at bedside on rhythm strip and HR decreased from 152 to 138, but still difficult to tell if ST or SVT. Then gave 100mg esmolol bolus with HR response to [address] and clear evidence of ST on EKG. Also, temp climbed rapidly from 36 to 39.9. reconnected cooling catheter to assist in maintaining normothermia. Levophed started to maintain map > 65 mmHg in the setting of probable SVT. Patient neurologically unresponsive, pupils are 2mm, but nonreactive. GCS 3. Objective Vital Signs Date Time Temp Pulse Resp B/P Pulse Ox O2 Delivery O2 Flow Rate FiO2 09/08/16 07:00 99.0 144 154/75 96 09/08/16 06:00 18 09/08/16 04:39 60 09/07/16 12:56 Ventilator Intake and Output 09/07/16 09/07/16 09/08/16 08:00 16:00 00:00 Intake Total 934 ml 753 ml 1026 ml Output Total 493 ml 263 ml 864 ml Balance 441 ml 490 ml 162 ml Result Diagram: 09/08/16 0300 09/08/16 0300 Other Results Laboratory Tests Test 09/07/16 09/07/16 10:19 12:30 Blood Gas Puncture Site ART LINE ART LINE Blood Gas Patient Temperature 98.6 98.6 Blood Gas HCO3 24 mmol/L 23 mmol/L (22-26) (22-26) Blood Gas Base Excess -1.7 mmol/L -2.0 mmol/L (-2-2) (-2-2) Blood Gas Oxygen Saturation 97 % (90-100) 97 % (90-100) Arterial Blood pH 7.29 7.34 (7.380-7.420) (7.380-7.420) Arterial Blood Partial 52 mmHg (38-42) 44 mmHg (38-42) Pressure CO2 Arterial Blood Partial 156 mmHg 159 mmHg Pressure O2 (61-120) (61-120) Arterial Blood Oxygen Content 16.3 Vol % 16.5 Vol % (12.0-20.0) (12.0-20.0) Arterial Blood 0.9 % (0-4) 0.8 % (0-4) Carboxyhemoglobin Arterial Blood Methemoglobin 1.3 % (0-2) 1.2 % (0-2) Blood Gas Hemoglobin 11.8 G/DL 11.9 G/DL (12.0-16.0) (12.0-16.0) Oxygen Delivery Device VENTILATOR VENTILATOR Blood Gas Ventilator Setting PRVC PRVC/20/550/0.9/+5 18/500/0.9/+5/ Blood Gas Inspired Oxygen 60 % 60 % Imaging CT of the head shows no acute findings Chest x-ray left-sided infiltrates Objective Remarks GENERAL: 50-year-old morbidly obese male who is comatose on the vent, sedated, severe distress and severe myoclonus. HEENT: Abrasion on bridge of nose. Pupils equal but unreactive bilaterally at 2mm. Dried blood in bilateral nostrils, and cheeks. No septal hematoma. NECK: Tracheostomy site intact, clean and dry. CARDIOVASCULAR: tachycardic rate, regular rhythm. see prior documentation for SVT vs. ST. RESPIRATORY: Ventilated through trach. Bilateral breath sounds, diminished at the bases GASTROINTESTINAL: Abdomen soft, morbidly obese MUSCULOSKELETAL: No obvious deformities. No clubbing. No cyanosis. No edema. All distal pulses intact. NEUROLOGICAL: Patient is comatose. GCS 3, RASS -5. off sedation. severe myoclonus. jerking movements are not stereotypic or rhythmic, but are timed with vent firing or movement of his extremities. A/P Assessment and Plan Assessment: 50yM with super morbid obesity male with acute on chronic respiratory failure, now presenting with asystolic cardiac arrest, and evidence of severe hypoxic ischemic encephalopathy. Now requiring neuromuscular blockade just to keep his myoclonus under control. will obtain EEG and MRI today. I will talk with the family. This is a very poor prognosis of neurologic recovery, and he is unlikely to regain any meaningful neurologic recovery. From a cardiac standpoint, will attempt to control sympathetic discharges with beta blockade and restart the cooling catheter to maintain normothermia. Remains very critically ill at this time. Neuro/Psych: Anoxic brain injury secondary to cardiac arrest Severe Myoclonus - goal normothermia, but still requiring cooling catheter just to maintain normothermia. - restart Nimbex to keep patient safe from severe myoclonus. - continue cerebyx. - EEG, MRI ordered. Pulm: Acute hypercarbic respiratory failure Probable respiratory arrest followed by cardiac arrest JACOB/OHS History of staph aureus pneumonia and ARDS - Currently on PRVC mode of ventilation via trach (#6 [place]) - Ventilator bundle. DuoNeb q6hr and PRN - Broad-spectrum antibiotics - no SBT today given neurologic exam. CV: Asystolic cardiac arrest Lactic acidosis from cardiac arrest- stable, persistent. Probable SVT Sinus Tachycardia - From the history that appears like patient had respiratory arrest followed by cardiac arrest - Status post CPR for approximately 14 minutes and epinephrine 4 followed by ROSC. Evidence of severe anoxic brain injury - Monitor HR and BP keep MAP>65mmHg - failure to completely clear lactate in the setting of critical illness is a poor prognostic factor in survival. cardiac output is optimized. uop adequate. - continue Levophed for map > 65 mmHg. - start propranolol 20mg po q6h to mitigate severe sympathetic outflow. - metoprolol 5mg iv q4h prn for HR > 110. /FEN: - Monitor renal function, I/O's, electrolytes replacement per protocol. GI: Super Morbid Obesity Acute protein calorie malnutrition- moderate - Nothing by mouth, IV Protonix ID: Severe sepsis Health care associated pneumonia Previous Staph aureus, pseudomonas pneumonia - Sputum blood and urine cultures ordered - Vancomycin and Azactam/Flagyl to cover for healthcare associated pneumonia - sputum culture growing staph, speciation to follow. Heme: Leukocytosis secondary to sepsis and stress Monitor CBC/coags Endo: Diabetes mellitus, poorly controlled - SSI for glycemic control with sliding scale insulin every 4 hours DVT, GI prophylaxis -Bilateral lower extremity SCDs. IV Protonix 40 mg daily. Lovenox 40 mg sq BID dispo: remain in the ICU. very critically ill and declining clinically today. CCT 82 MIN excluding procedures Js Garrett MD Sep 08, 2016 08:27
[2016-09-08] MEDS: PROPRANOLOL HCL 20 MG TAB PO SCH ×3 (09:52→17:44)
[2016-09-08] MEDS: CHLORHEXIDINE 0.12% (ORAL KIT) 15 ML CUP MT SCH ×2 (09:52→20:42)
--- NOTE | 2016-09-08 13:01 | RADRPT ---
EXAM DATE/TIME: 09/08/2016 12:24 [facility] COMPARISON: No previous studies available for comparison. INDICATIONS : Anoxic brain injury. MEDICAL HISTORY : Diabetes mellitus type 2. Sleep apnea. SURGICAL HISTORY : Tracheostomy. ENCOUNTER: Initial ACUITY: 1 day PAIN SCORE: 0/10 LOCATION: cranial TECHNIQUE: Multiplanar, multisequence MRI of the brain was performed without contrast. FINDINGS: CEREBRUM: The ventricles are normal for age. No evidence of midline shift, mass lesion, hemorrhage or acute in farction. No extraaxial fluid collections are seen. The pituitary gland and suprasellar cistern are normal in configuration. WHITE MATTER: No significant signal abnormalities are seen in the white matter. POSTERIOR FOSSA: The cerebellum and brainstem are intact. The 4th ventricle is midline. The cerebellopontine angle is unremarkable. The cerebellar tonsils are normal in position. DIFFUSION IMAGING: There is restricted diffusion throughout the cortex of bilateral hemispheres consistent with diffuse ischemic change. EXTRACRANIAL: The visualized portions of the orbits and paranasal sinuses are unremarkable. CONCLUSION: 1. Diffuse restricted diffusion of scott matter of bilateral hemispheres consistent with anoxic brain injury. 2. No midline shift or mass effect. Wale Dalal MD on September 08, 2016 at 12:56 Board Certified Radiologist. This report was verified electronically.
--- NOTE | 2016-09-08 15:25 | EKG ---
Date Performed: 09/08/2016 Time Performed: 07:53:20 PTAGE: 50 years EKG: Probable sinus tachycardia. Lateral ST changes are nonspecific Borderline ECG PREVIOUS TRACING : 09/06/2016 15.22 Compared to the previous tracing, rate has increased DOCTOR: Ethan Russo Interpretating Date/Time 09/08/2016 15:23:34
[2016-09-08] MEDS: ENOXAPARIN SODIUM 40 MG/0.4 ML SYRINGE SQ SCH (17:44)
[2016-09-08] MEDS: PROPOFOL 1000 MG/100 ML INJ 100 ML IV SCH (20:43)
[2016-09-08] MEDS: CISATRACURIUM 100 MG/NS 250 ML IV SCH ×2 (20:43)
[2016-09-08] MEDS: PANTOPRAZOLE SODIUM 40 MG VIAL IV PUSH SCH (20:44)
[2016-09-09] VITALS (58 sets, daily range): BP systolic 78–150; BP diastolic 45–94; PULSE 52–108; RESP 0–21; TEMP 96.6–99.3; O2SAT 87–100
[2016-09-09] MEDS: PROPRANOLOL HCL 20 MG TAB PO SCH ×4 (00:50→17:45)
[2016-09-09] MEDS: INSULIN ASPART SUPPLEMENTAL SCALE SQ SCH ×6 (02:00→22:00)
[2016-09-09 02:52] LABS: HEMATOCRIT 35.7 % (39.0-51.0); MEAN CELL VOLUME 83.3 FL (80.0-100.0); MEAN CORPUSCULAR HEMOGLOBIN 25.8 PG (27.0-34.0); PLATELET COUNT 294 TH/MM3 (150-450); RED BLOOD COUNT 4.28 MIL/MM3 (4.50-5.90); RED CELL DISTRIBUTION WIDTH 14.6 % (11.6-17.2); REVIEW FLAG FINAL; WHITE BLOOD COUNT 20.8 TH/MM3 (4.0-11.0)
[2016-09-09 03:31] LABS: BICARBONATE 27.7 MEQ/L (21.0-32.0); POTASSIUM 3.3 MEQ/L (3.5-5.1)
[2016-09-09] MEDS: RESP: ALBUTEROL 2.5 MG/IPRATROPIUM 0.5 MG NEB (SCH) NEB ×4 (03:56→19:21)
[2016-09-09] MEDS: CHLORHEXIDINE GLUCONATE 2 % 1 PACK (2 CLOTHS) TOP SCH (04:00)
[2016-09-09] MEDS: metroNIDAZOLE 500 MG INJ 100 ML IV SCH ×4 (04:42→23:06)
[2016-09-09] MEDS: AZTREONAM INJ 2,000 MG in SODIUM CHLORIDE 0.9% INJ 100 ML IV SCH ×4 (04:43→20:10)
[2016-09-09] MEDS: PROPOFOL 1000 MG/100 ML INJ 100 ML IV SCH ×3 (04:45→22:02)
[2016-09-09] MEDS: PHENYTOIN INJ 100 MG/2 ML VIAL IV SCH ×3 (05:47→23:06)
[2016-09-09] MEDS ORDERED: levETIRAcetam INJ 1,000 MG in SODIUM CHLORIDE 0.9% INJ 100 ML IV SCH (09:00)
[2016-09-09] MEDS: CHLORHEXIDINE 0.12% (ORAL KIT) 15 ML CUP MT SCH ×2 (09:07→20:11)
--- NOTE | 2016-09-09 10:34 | HHI.CCPN ---
Subjective Remarks/Hospital Course Hospital Course: Patient is a 50-year-old male with past medical history significant for super morbid obesity, type 2 diabetes, untreated sleep apnea who was admitted for acute on chronic hypoxic and hypercapnic respiratory failure with inability to wean for a very long time and had hospitalization from 03/24/16-08/13/16. During this period patient underwent tracheostomy Eric and had numerous complications including staph aureus and Pseudomonas pneumonia. He also needed a tracheostomy revision during hospitalization. He was eventually discharged on 08/13/16 to rehabilitation and then to home. He was brought in by [facility] s/p cardiac arrest. Apparently he was cleaning his tracheostomy tube complained of sudden onset shortness of breath with difficulty breathing and then had a witnessed collapse and became pulseless. Patient was in asystole when EMS arrived and had ROSC after epinephrine x4. Estimated down time was about 14 minutes. Pt was in sinus tachycardia when he arrived to ED. Breath sounds were equal bilaterally and pt was bagged from his tracheostomy site. Patient was placed ventilator on PRVC mode and ABG showed, hypercapnic respiratory failure. Abnormal labs include leukocytosis at 25,000, Lactic acid elevated at 8.3, likely from cardiac arrest and initial Troponin negative. UA showed WBC 30. CXR showed Left upper lung infiltrates. Pt given vancomycin, aztreonam and azithromycin in ED. CT brain negative. I evaluated the patient emergently in the ED. Patient's neuro exam was poor. He has not received any sedation or paralyzing medications. He is unconscious with No withdrawal to deep pain. Pupils are 1 mm, nonreactive. Patient had myoclonic jerks. Given the patient's relatively young age, and a normal CT of the brain, I will proceed with induced hypothermia for neuro protection. I reviewed the CAT scan with radiologist Dr. Martinez and he agrees there are no findings of early anoxic brain injury. In the ICU I placed the right femoral heat exchange catheter. Patient will also be on vancomycin and Azactam and Flagyl to cover for healthcare associated pneumonia. Patient will be loaded with 1 g of Cerebyx followed by 100 mg every 8 hours Subjective: 09/07: target temp reached at midnight. bradycardic, but uop adequate. map > 65. sputum gram stain with rare GPCs in pairs. on empiric abx. 09/08: rewarmed this morning. on sedation and paralytic hold, patient had severe myoclonus causing vent dyssynchrony and biting of lips and tongue despite bite block. required re-paralyzation to control his myoclonus. EEG and MRI ordered. I was called back again to the bedside for tachycardia and hypotension, HR > 160 which appeared to be SVT. EKG was suspicious for SVT. I gave 12mg adenosine at bedside on rhythm strip and HR decreased from 152 to 138, but still difficult to tell if ST or SVT. Then gave 100mg esmolol bolus with HR response to 98 and clear evidence of ST on EKG. Also, temp climbed rapidly from 36 to 39.9. reconnected cooling catheter to assist in maintaining normothermia. Levophed started to maintain map > 65 mmHg in the setting of probable SVT. Patient neurologically unresponsive, pupils are 2mm, but nonreactive. GCS 3. 09/09: MRI yesterday with evidence of severe anoxia. EEG with intermittent spikes , again suggestive of anoxia. every time neuromuscular blockade is weaned, patient becomes severely myoclonic and hyperthermic, requiring replacement of neuromuscular blockade. With this poor neuro exam 24h after therapeutic hypothermia and 3 days out from cardiac arrest, the patient is unlikely to ever regain meaningful neurologic function. Objective Vital Signs Date Time Temp Pulse Resp B/P Pulse Ox O2 Delivery O2 Flow Rate FiO2 09/09/16 09:00 99.3 108 20 108/78 95 132/83 09/09/16 07:08 50 09/07/16 12:56 Ventilator Intake and Output 09/08/16 09/08/16 09/09/16 08:00 16:00 00:00 Intake Total 602 ml 402 ml 911 ml Output Total 380 ml 650 ml 425 ml Balance 222 ml -248 ml 486 ml Result Diagram: 09/09/16 0150 09/09/16 0150 Other Results Microbiology Date/Time Procedure Status Source Growth 09/06/16 15:30 Urine Culture - Final Complete Urine Catheterized Urine NO GROWTH IN 48 HOURS. 09/06/16 21:30 Gram Stain - Final Complete Sputum Endotracheal 09/06/16 21:30 Sputum Culture - Final Complete Staphylococcus Aureus Imaging CT of the head shows no acute findings Chest x-ray left-sided infiltrates Objective Remarks GENERAL: 50-year-old morbidly obese male who is comatose on the vent, sedated, severe distress and severe myoclonus. HEENT: Abrasion on bridge of nose. Pupils equal but unreactive bilaterally at 2mm. Dried blood in bilateral nostrils, and cheeks. No septal hematoma. NECK: Tracheostomy site intact, clean and dry. CARDIOVASCULAR: normal rate, regular rhythm. sinus by tele. RESPIRATORY: Ventilated through trach. Bilateral breath sounds, diminished at the bases GASTROINTESTINAL: Abdomen soft, morbidly obese MUSCULOSKELETAL: No obvious deformities. No clubbing. No cyanosis. No edema. All distal pulses intact. NEUROLOGICAL: Patient is comatose. GCS 3, RASS -5. off sedation. severe myoclonus. jerking movements are not stereotypic or rhythmic, but are timed with vent firing or movement of his extremities. A/P Assessment and Plan Assessment: 50yM with super morbid obesity male with acute on chronic respiratory failure, now presenting with asystolic cardiac arrest, and evidence of severe hypoxic ischemic encephalopathy both clinically and radiographically. course complicated by HCAP vs. aspiration pneumonia, hypoxic respiratory failure, and severe myoclonus. Will need to discuss with family. for now our goals are aggressive in this very critically ill patient, but given the overwhelming evidence, unlikely the patient will ever gain meaningful neurologic recovery. Remains very critically ill at this time. Neuro/Psych: Severe Anoxic brain injury secondary to cardiac arrest Severe Myoclonus - goal normothermia, but still requiring cooling catheter just to maintain normothermia. - restart Nimbex to keep patient safe from severe myoclonus. - continue cerebyx. - add keppra 1gm iv q12h. - MRI 09/08: evidence of severe anoxic injury - EEG 09/08: intermittent sharp spikes consistent with anoxia Pulm: Acute hypercarbic respiratory failure Probable respiratory arrest followed by cardiac arrest JACOB/OHS History of staph aureus pneumonia and ARDS Healthcare associated pneumonia - Currently on PRVC mode of ventilation via trach (#6 [place]) - Ventilator bundle. DuoNeb q6hr and PRN - Broad-spectrum antibiotics - no SBT today given neurologic exam. CV: Asystolic cardiac arrest Lactic acidosis from cardiac arrest- improving. Sinus Tachycardia - From the history that appears like patient had respiratory arrest followed by cardiac arrest - Status post CPR for approximately 14 minutes and epinephrine 4 followed by ROSC. Evidence of severe anoxic brain injury - Monitor HR and BP keep MAP>65mmHg - failure to completely clear lactate in the setting of critical illness is a poor prognostic factor in survival. cardiac output is optimized. uop adequate. - continue Levophed for map > 65 mmHg. - continue propranolol 20mg po q6h to mitigate severe sympathetic outflow. - metoprolol 5mg iv q4h prn for HR > 110. /FEN: - Monitor renal function, I/O's, electrolytes replacement per protocol. GI: Super Morbid Obesity Acute protein calorie malnutrition- moderate - Nothing by mouth, IV Protonix ID: Severe sepsis Health care associated pneumonia Previous Staph aureus, pseudomonas pneumonia - Sputum blood and urine cultures ordered - Vancomycin and Azactam/Flagyl to cover for healthcare associated pneumonia - sputum culture growing staph, speciation to follow. Heme: Leukocytosis secondary to sepsis and stress Monitor CBC/coags Endo: Diabetes mellitus, poorly controlled - SSI for glycemic control with sliding scale insulin every 4 hours DVT, GI prophylaxis -Bilateral lower extremity SCDs. IV Protonix 40 mg daily. Lovenox 40 mg sq BID dispo: remain in the ICU. very critically ill and declining clinically. CCT 51 MIN excluding procedures Js Garrett MD Sep 09, 2016 10:34
[2016-09-09] MEDS: levETIRAcetam 1000 MG INJ 100 ML IV SCH ×2 (10:45→22:02)
[2016-09-09 11:28] LABS: INDIRECT BILIRUBIN 0.3 MG/DL (0.0-0.8); TOTAL BILIRUBIN ADULT 0.5 MG/DL (0.2-1.0)
--- NOTE | 2016-09-09 11:53 | MG ---
cc: MICHELLE MARCANO M.D. Sex: M Race: 65, 50 years old. EEG. [id number] REFERRING PHYSICIAN: Dr. Wynn. Room 511. Repeat study. Intubated, with hyperventilation. Photic omitted. No sedation for two hours, ___ is running. He was intubated, paralyzed, cool body temperature now at 37.8. EEG 09/07 showed some spike and slow waves bilaterally followed by suppressed pattern. It is a follow up study. History of sleep apnea, caffeine use, back pain. He was sitting down, cleaning his trache when he collapsed. MEDICATIONS: Dilantin. Metronidazole Aztreonam. ____. DESCRIPTION OF RECORD Overall there is background slowing, predominantly at 2 to 2.5 hertz, 3 hertz at times, bilateral sharp wave seen. No sedation. However, there is no burst suppression any longer. IMPRESSION Abnormal EEG due to moderately severe slowing with some sharp waves seen bihemispherically. Clinical correlation. MD DONG Echeverria/THALIA /9:39 AM /11:26 AM
[2016-09-09] MEDS: ENOXAPARIN SODIUM 40 MG/0.4 ML SYRINGE SQ SCH (17:45)
[2016-09-09] MEDS: CISATRACURIUM 100 MG/NS 250 ML IV SCH ×2 (20:09)
[2016-09-09] MEDS: PANTOPRAZOLE SODIUM 40 MG VIAL IV PUSH SCH (20:10)
[2016-09-09] MEDS: SODIUM CHLORIDE 0.9% FLUSH 10 ML FLUSH IV FLUSH PRN (20:11)
[2016-09-10] VITALS (37 sets, daily range): BP systolic 78–139; BP diastolic 50–97; PULSE 64–100; RESP 0–27; TEMP 97.5–99.8; O2SAT 94–100
[2016-09-10] MEDS: PROPRANOLOL HCL 20 MG TAB PO SCH ×5 (00:25→23:14)
[2016-09-10] MEDS: INSULIN ASPART SUPPLEMENTAL SCALE SQ SCH ×6 (02:00→20:57)
[2016-09-10] MEDS: AZTREONAM INJ 2,000 MG in SODIUM CHLORIDE 0.9% INJ 100 ML IV SCH ×3 (02:30→13:40)
[2016-09-10] MEDS: metroNIDAZOLE 500 MG INJ 100 ML IV SCH ×3 (03:33→13:41)
[2016-09-10] MEDS: RESP: ALBUTEROL 2.5 MG/IPRATROPIUM 0.5 MG NEB (SCH) NEB ×3 (03:53→15:58)
[2016-09-10 05:42] LABS: HEMATOCRIT 34.2 % (39.0-51.0); MEAN CELL VOLUME 83.2 FL (80.0-100.0); MEAN CORPUSCULAR HEMOGLOBIN 26.6 PG (27.0-34.0); PLATELET COUNT 251 TH/MM3 (150-450); RED BLOOD COUNT 4.11 MIL/MM3 (4.50-5.90); RED CELL DISTRIBUTION WIDTH 14.9 % (11.6-17.2); REVIEW FLAG FINAL; WHITE BLOOD COUNT 25.6 TH/MM3 (4.0-11.0)
[2016-09-10 05:56] LABS: BICARBONATE 24.1 MEQ/L (21.0-32.0)
[2016-09-10] MEDS: PHENYTOIN INJ 100 MG/2 ML VIAL IV SCH ×3 (06:37→21:10)
[2016-09-10] MEDS: POTASSIUM CHLOR 40 MEQ PREMIX 100 ML IV PRN ×2 (08:55→09:50)
[2016-09-10] MEDS: levETIRAcetam 1000 MG INJ 100 ML IV SCH ×2 (09:03→21:10)
[2016-09-10] MEDS: CHLORHEXIDINE 0.12% (ORAL KIT) 15 ML CUP MT SCH ×2 (09:08→21:09)
[2016-09-10] MEDS: PROPOFOL 1000 MG/100 ML INJ 100 ML IV SCH ×3 (10:52→21:09)
--- NOTE | 2016-09-10 14:49 | HHI.HCPN ---
Reason for visit a. To assist with evaluation and management of symptoms including: dyspnea, encephalopathy. b. To assist medical decision maker(s) with: better understanding of current medical conditions; weighing benefits/burdens of medical treatment options; making medical treatment decisions. . Subjective/Interval History Patient seen and examined in ICU. No family at bedside. Tmax 99.1. On mech vent FiO2 40%. WBC 25.6. Sputum + staph aureus. MRI brain 09/08 revealed diffuse restricted diffusion of scott matter of bilateral hemispheres consistent with anoxic brain injury, no midline shift or mass effect. Discussed with nurse, indicates pt daughter expected to arrive late tonight. Will plan for family meeting 09/11/16. PHILOMENA Floyd called and left message for brother/HCS Farhat to confirm time for family meeting. Discussed with Dr. Garrett. . Family/friend interactions PHILOMENA Floyd called and left message for brother/HCS Farhat to confirm time for family meeting. . Advance Directives Health Care Surrogate: Copy in medical record Advance Directive Specifics Date completed: 03/26/16 . Health Care Surrogate(s): Has designated his brother Farhat as healthcare surrogate. Documented care wishes: No Living Will. . Significant change in goals: FULL CODE. Anticipate family meeting 09/11/16 to further clarify treatment goals after family arrives from out of town. . Objective Vital Signs Date Time Temp Pulse Resp B/P Pulse Ox O2 Delivery O2 Flow Rate FiO2 09/10/16 11:10 100 40 09/10/16 08:13 97 40 09/10/16 06:00 99.1 74 20 120/75 97 134/75 09/10/16 06:00 74 09/10/16 05:45 99.0 74 20 123/78 97 139/79 09/10/16 05:30 98.6 73 20 116/74 98 131/74 09/10/16 05:15 98.2 74 20 111/71 98 127/72 09/10/16 05:00 97.9 69 20 104/66 100 88/74 09/10/16 04:46 97.9 68 20 93/51 100 93/63 09/10/16 04:30 97.7 66 20 83/59 100 106/61 09/10/16 04:30 97.7 66 20 83/59 100 106/61 09/10/16 04:15 97.7 65 13 78/53 100 105/63 09/10/16 04:15 97.7 65 13 78/53 100 105/63 09/10/16 04:00 97.7 64 0 89/60 100 107/65 09/10/16 04:00 97.7 64 0 89/60 100 107/65 09/10/16 04:00 50 09/10/16 04:00 97.5 64 20 89/60 100 107/65 09/10/16 04:00 64 09/10/16 03:54 100 40 09/10/16 03:45 97.7 64 0 87/58 100 101/66 09/10/16 03:31 97.9 64 1 91/56 100 88/82 09/10/16 03:15 98.1 65 0 93/63 100 102/69 09/10/16 03:00 98.2 65 0 92/63 97 91/80 09/10/16 02:45 98.4 66 1 95/63 95 95/84 09/10/16 02:30 98.6 66 20 79/50 100 101/56 09/10/16 02:15 98.6 67 20 82/52 100 102/56 09/10/16 02:00 98.6 68 20 82/52 100 103/56 09/10/16 02:00 100 09/10/16 01:45 98.8 69 20 79/50 100 101/54 09/10/16 01:30 50 09/10/16 01:30 98.8 69 20 84/53 100 105/57 09/10/16 01:25 100 50 09/10/16 01:15 98.8 70 20 86/56 100 108/59 09/10/16 01:00 98.8 71 20 89/57 100 112/62 09/10/16 00:45 98.8 73 20 95/60 100 118/67 09/10/16 00:30 98.8 74 20 91/56 99 120/65 09/10/16 00:15 98.8 77 19 87/55 94 117/67 09/10/16 00:00 98.8 76 20 83/54 95 109/59 09/10/16 00:00 98.9 76 20 83/54 95 109/59 09/10/16 00:00 76 7/10/17 00:00 60 09/10/16 00:00 98.8 76 20 83/54 95 109/59 09/09/16 23:45 99.0 77 20 83/50 88 109/59 09/09/16 23:30 99.0 77 20 81/51 96 107/57 09/09/16 23:15 99.0 77 20 80/51 97 103/55 09/09/16 23:00 99.0 77 0 90/53 97 115/61 09/09/16 22:45 99.1 77 0 93/56 98 117/63 09/09/16 22:30 99.1 77 0 92/52 98 115/62 09/09/16 22:15 99.0 76 21 95/57 95 121/66 09/09/16 22:00 78 09/09/16 22:00 98.8 78 20 87/51 93 112/58 09/09/16 21:46 98.4 76 20 91/52 95 108/56 09/09/16 21:30 98.1 74 20 87/54 98 111/59 09/09/16 21:15 97.7 73 20 87/52 91 110/60 09/09/16 21:00 60 09/09/16 21:00 97.5 73 20 85/54 87 108/59 09/09/16 20:45 97.3 70 20 90/57 90 111/62 09/09/16 20:30 97.2 69 20 88/56 90 109/62 09/09/16 20:15 97.2 67 15 88/56 95 107/62 09/09/16 20:01 97.3 66 9 89/54 96 106/63 09/09/16 20:00 40 09/09/16 20:00 67 09/09/16 20:00 97.3 67 5 106/64 96 09/09/16 20:00 96.9 67 20 89/54 97 106/64 09/09/16 19:21 100 40 09/09/16 18:00 68 09/09/16 18:00 98.8 68 20 108/69 100 133/76 09/09/16 17:45 99.0 72 20 106/66 99 130/75 09/09/16 17:30 99.0 72 20 105/65 99 133/77 09/09/16 17:15 99.1 72 20 110/66 98 137/79 09/09/16 17:00 99.1 74 20 102/59 100 150/91 09/09/16 16:00 75 95/50 107/84 09/09/16 16:00 99.1 75 20 95/50 99 107/84 09/09/16 16:00 75 09/09/16 16:00 40 09/09/16 15:00 99.0 76 20 92/53 99 109/85 09/09/16 14:32 98 40 Intake & Output 09/10/16 09/10/16 07:00 19:00 Intake Total 1196 ml Output Total 935 ml Balance 261 ml Intake IV Total 1166 ml Other 30 ml Output Urine Total 760 ml Gastric Drainage Total 175 ml # Bowel Movements 0 Physical Exam CONSTITUTIONAL/GENERAL: This is an overweight patient, comatose, sedated and [facility] TUBES/LINES/DRAINS: OG, Trach to vent, PIVs, right femoral line, Becker, SCDs SKIN: Dried blood on face. No jaundice, rashes, or lesions. Ecchymoses on upper extremities. No wounds seen anteriorly. Skin cool, hypothermic. EYES: eyes closed. ENT: Unable to assess hearing. Nose with dried blood. NECK: Tracheostomy to vent, site clean and dry. CARDIOVASCULAR: bradycardia, rate, regular rhythm. RESPIRATORY/CHEST: Symmetric, unlabored respirations on vent. Breath sounds diminished bilaterally. GASTROINTESTINAL: Abdomen soft, protuberant. GENITOURINARY: Without palpable bladder distension. Becker catheter in place. MUSCULOSKELETAL: Extremities without clubbing, cyanosis, or edema. No mottling or clubbing. LYMPHATICS: No palpable cervical or supraclavicular adenopathy. NEUROLOGICAL: comatose. Sedated, paralyzed. PSYCHIATRIC: comatose. . Diagnostic Tests Laboratory Laboratory Tests Test 09/07/16 09/07/16 09/08/16 09/08/16 20:54 22:15 03:00 14:10 Lactic Acid Level 3.4 mmol/L 3.1 mmol/L 1.9 mmol/L (0.4-2.0) (0.4-2.0) (0.4-2.0) Potassium Level 4.0 MEQ/L 3.5 MEQ/L (3.5-5.1) (3.5-5.1) White Blood Count 19.2 TH/MM3 (4.0-11.0) Red Blood Count 4.49 MIL/MM3 (4.50-5.90) Hemoglobin 12.2 GM/DL (13.0-17.0) Hematocrit 36.8 % (39.0-51.0) Mean Corpuscular Volume 82.1 FL (80.0-100.0) Mean Corpuscular Hemoglobin 27.2 PG (27.0-34.0) Mean Corpuscular Hemoglobin 33.2 % Concent (32.0-36.0) Red Cell Distribution Width 14.7 % (11.6-17.2) Platelet Count 308 TH/MM3 (150-450) Mean Platelet Volume 8.3 FL (7.0-11.0) Sodium Level 146 MEQ/L (136-145) Chloride Level 111 MEQ/L (98-107) Carbon Dioxide Level 28.3 MEQ/L (21.0-32.0) Anion Gap 7 MEQ/L (5-15) Blood Urea Nitrogen 15 MG/DL (7-18) Creatinine 0.53 MG/DL (0.60-1.30) Estimat Glomerular Filtration 165 ML/MIN Rate (>89) Random Glucose 117 MG/DL (74-106) Calcium Level 8.6 MG/DL (8.5-10.1) Test 09/08/16 09/09/16 09/10/16 18:30 01:50 03:50 Lactic Acid Level 1.9 mmol/L 1.6 mmol/L (0.4-2.0) (0.4-2.0) White Blood Count 20.8 TH/MM3 25.6 TH/MM3 (4.0-11.0) (4.0-11.0) Red Blood Count 4.28 MIL/MM3 4.11 MIL/MM3 (4.50-5.90) (4.50-5.90) Hemoglobin 11.1 GM/DL 11.0 GM/DL (13.0-17.0) (13.0-17.0) Hematocrit 35.7 % 34.2 % (39.0-51.0) (39.0-51.0) Mean Corpuscular Volume 83.3 FL 83.2 FL (80.0-100.0) (80.0-100.0) Mean Corpuscular Hemoglobin 25.8 PG 26.6 PG (27.0-34.0) (27.0-34.0) Mean Corpuscular Hemoglobin 31.0 % 32.0 % Concent (32.0-36.0) (32.0-36.0) Red Cell Distribution Width 14.6 % 14.9 % (11.6-17.2) (11.6-17.2) Platelet Count 294 TH/MM3 251 TH/MM3 (150-450) (150-450) Mean Platelet Volume 8.8 FL 9.1 FL (7.0-11.0) (7.0-11.0) Sodium Level 146 MEQ/L 144 MEQ/L (136-145) (136-145) Potassium Level 3.3 MEQ/L 3.0 MEQ/L (3.5-5.1) (3.5-5.1) Chloride Level 111 MEQ/L 109 MEQ/L (98-107) (98-107) Carbon Dioxide Level 27.7 MEQ/L 24.1 MEQ/L (21.0-32.0) (21.0-32.0) Anion Gap 7 MEQ/L (5-15) 11 MEQ/L (5-15) Blood Urea Nitrogen 17 MG/DL (7-18) 14 MG/DL (7-18) Creatinine 0.73 MG/DL 0.61 MG/DL (0.60-1.30) (0.60-1.30) Estimat Glomerular Filtration 114 ML/MIN 140 ML/MIN Rate (>89) (>89) Random Glucose 98 MG/DL 105 MG/DL (74-106) (74-106) Calcium Level 8.3 MG/DL 7.9 MG/DL (8.5-10.1) (8.5-10.1) Total Bilirubin 0.5 MG/DL (0.2-1.0) Direct Bilirubin 0.2 MG/DL (0.0-0.2) Indirect Bilirubin 0.3 MG/DL (0.0-0.8) Gamma Glutamyl Transpeptidase 32 U/L (15-85) Aspartate Amino Transf 59 U/L (15-37) (AST/SGOT) Alanine Aminotransferase 26 U/L (12-78) (ALT/SGPT) Alkaline Phosphatase 72 U/L (45-117) Total Protein 6.1 GM/DL (6.4-8.2) Albumin 2.4 GM/DL (3.4-5.0) Result Diagram: 09/10/16 0350 09/10/16 0350 Microbiology Microbiology Date/Time Procedure Status Source Growth 09/06/16 21:30 Gram Stain - Final Complete Sputum Endotracheal 09/06/16 21:30 Sputum Culture - Final Complete Staphylococcus Aureus 09/06/16 15:40 Aerobic Blood Culture - Preliminary Resulted Blood Peripheral NO GROWTH IN 4 DAYS 09/06/16 15:40 Anaerobic Blood Culture - Preliminary Resulted Blood Peripheral NO GROWTH IN 4 DAYS 09/06/16 15:30 Urine Culture - Final Complete Urine Catheterized Urine NO GROWTH IN 48 HOURS. . Imaging Last Impressions Brain MRI 09/08/16 0000 Signed Impressions: Service Date/Time: Thursday, September 08, 2016 12:24 - CONCLUSION: 1. Diffuse restricted diffusion of scott matter of bilateral hemispheres consistent with anoxic brain injury. 2. No midline shift or mass effect. Wale Dalal MD Maxillofacial CT 09/06/16 0000 Signed Impressions: Service Date/Time: September 16:12 - CONCLUSION: 1. No acute bony fracture. 2. Chronic bilateral ethmoid sinus disease. Rodrigo Martinez MD Head CT 09/06/16 0000 Signed Impressions: Service Date/Time: September 16:07 - CONCLUSION: 1. No acute intracranial hemorrhage. 2. Unremarkable exam for patient's age. Rodrigo Martinez MD Chest X-Ray 09/06/16 0000 Signed Impressions: Service Date/Time: , September 06, 2016 15:30 - CONCLUSION: 1. The tracheostomy tube and NG tube appear in good position. 2. Mild interstitial infiltrates are seen in the left upper lung. 3. Otherwise, no significant changes prior study. Rodrigo Martinez MD Cervical Spine CT 09/06/16 0000 Signed Impressions: Service Date/Time: , September 06, 2016 16:12 - CONCLUSION: 1. No acute fracture or subluxation. 2. Consolidation of the right lung apex with patchy airspace disease in the left lung apex. This may reflect aspiration, partial collapse, or edema. 3. Multilevel degenerative spondylosis of the cervical spine most prominently from C4-C7. Terrell Acevedo MD . Procedures * 09/06/16 code blue, intubation, right femoral head exchange catheter. . Assessment and Plan Disease Oriented Problem List: (1) Diabetes mellitus type 2 in obese (2) JACOB (obstructive sleep apnea) (3) Staphylococcus aureus pneumonia (4) Lactic acidemia (5) HCAP (healthcare-associated pneumonia) (6) Obesity hypoventilation syndrome (7) Acute and chronic respiratory failure (8) Myoclonus (9) Cardiac asystole (10) Anoxic encephalopathy (11) Cardiac arrest Symptom Scale: (1) Encephalopathy 0-10 Scale: Unable to quantify (2) Dyspnea 0-10 Scale: Unable to quantify (3) Pain 0-10 Scale: Unable to quantify Pertinent Non-Medical Issues Psychosocial: , has 2 daughters. Supported by his local brother/ HCS Farhat Leger. Spiritual: Legal:Patient is not able to participate in decision-making due to clinical condition. Has completed designation of health care surrogate (HCS) naming his brother Farhat Zarco as HCS. Ethical issues impacting care: . Important Contacts * Farhat Leger, brother/HCS: [phone] * Gagandeep Leger, brother: [phone] . Prognosis Patient comatose, sedated, paralyzed following asystolic arrest with return of spontaneous circulation after proximally 14 minutes, possible anoxic brain injury, currently hypothermic (CODE COOL). Will need some time to monitor after sedation/paralytic are lifted to determine neurologic status. Overall prognosis given generalized poor health since March 2016 appears poor for meaningful recovery. Will need additional time to thoroughly prognosticate. . Code Status: Full Code Plan * Patient is not able to participate in decision-making due to clinical condition. Has completed designation of health care surrogate (HCS) naming his brother Farhat Leger as HCS. * FULL CODE * Palliative care left message fro family to set up time for family meeting 09/11 to further clarify treatment goals, anticpate arrival of family late tonight. * SYMPTOMS: Pain: sedated and paralyzed at this time. Dyspnea: on mech vent. No new medication recommendations at this time. Will monitor. * Palliative care will continue to follow throughout hospital course to assist with symptom management and clarification of goals as needed. . Attestation To help prompt me to consider important information that might be impacting today's encounter and assessment, information from prior notes written by myself or my colleagues may have been "brought forward" into today's note. My signature on this note, however, is an attestation that I personally performed the exam, history, and/or decision-making noted today, and, unless otherwise indicated, the interactions with patient, family, and staff as well as the review of records all occurred today. I also attest that the listed assessment and stated plan reflect my best clinical judgment today based on the combination of historical information, prior notes, and today's exam/ interactions. When time spent is documented, it refers only to time spent today by the signer, or if indicated, combined time spent today by collaborating physician/nurse practitioner. Juju Ramos Sep 10, 2016 14:49
[2016-09-10] MEDS ORDERED: MIDAZOLAM HCL 5 MG/ML VIAL (1 ML) ONE (16:03)
[2016-09-10] MEDS ORDERED: MIDAZOLAM HCL 5 MG/5 ML VIAL IV ONE (16:15)
[2016-09-10] MEDS: ENOXAPARIN SODIUM 40 MG/0.4 ML SYRINGE SQ SCH (17:31)
--- NOTE | 2016-09-10 19:43 | HHI.CCPN ---
Subjective Remarks/Hospital Course Hospital Course: Patient is a 50-year-old male with past medical history significant for super morbid obesity, type 2 diabetes, untreated sleep apnea who was admitted for acute on chronic hypoxic and hypercapnic respiratory failure with inability to wean for a very long time and had hospitalization from 03/24/16-08/13/16. During this period patient underwent tracheostomy Eric and had numerous complications including staph aureus and Pseudomonas pneumonia. He also needed a tracheostomy revision during hospitalization. He was eventually discharged on 08/13/16 to rehabilitation and then to home. He was brought in by [facility] s/p cardiac arrest. Apparently he was cleaning his tracheostomy tube complained of sudden onset shortness of breath with difficulty breathing and then had a witnessed collapse and became pulseless. Patient was in asystole when EMS arrived and had ROSC after epinephrine x4. Estimated down time was about 14 minutes. Pt was in sinus tachycardia when he arrived to ED. Breath sounds were equal bilaterally and pt was bagged from his tracheostomy site. Patient was placed ventilator on PRVC mode and ABG showed, hypercapnic respiratory failure. Abnormal labs include leukocytosis at 25,000, Lactic acid elevated at 8.3, likely from cardiac arrest and initial Troponin negative. UA showed WBC 30. CXR showed Left upper lung infiltrates. Pt given vancomycin, aztreonam and azithromycin in ED. CT brain negative. I evaluated the patient emergently in the ED. Patient's neuro exam was poor. He has not received any sedation or paralyzing medications. He is unconscious with No withdrawal to deep pain. Pupils are 1 mm, nonreactive. Patient had myoclonic jerks. Given the patient's relatively young age, and a normal CT of the brain, I will proceed with induced hypothermia for neuro protection. I reviewed the CAT scan with radiologist Dr. Martinez and he agrees there are no findings of early anoxic brain injury. In the ICU I placed the right femoral heat exchange catheter. Patient will also be on vancomycin and Azactam and Flagyl to cover for healthcare associated pneumonia. Patient will be loaded with 1 g of Cerebyx followed by 100 mg every 8 hours Subjective: 09/07: target temp reached at midnight. bradycardic, but uop adequate. map > 65. sputum gram stain with rare GPCs in pairs. on empiric abx. 09/08: rewarmed this morning. on sedation and paralytic hold, patient had severe myoclonus causing vent dyssynchrony and biting of lips and tongue despite bite block. required re-paralyzation to control his myoclonus. EEG and MRI ordered. I was called back again to the bedside for tachycardia and hypotension, HR > 160 which appeared to be SVT. EKG was suspicious for SVT. I gave 12mg adenosine at bedside on rhythm strip and HR decreased from 152 to 138, but still difficult to tell if ST or SVT. Then gave 100mg esmolol bolus with HR response to [address] evidence of ST on EKG. Also, temp climbed rapidly from 36 to 39.9. reconnected cooling catheter to assist in maintaining normothermia. Levophed started to maintain map > 65 mmHg in the setting of probable SVT. Patient neurologically unresponsive, pupils are 2mm, but nonreactive. GCS 3. 09/09: MRI yesterday with evidence of severe anoxia. EEG with intermittent spikes , again suggestive of anoxia. every time neuromuscular blockade is weaned, patient becomes severely myoclonic and hyperthermic, requiring replacement of neuromuscular blockade. With this poor neuro exam 24h after therapeutic hypothermia and 3 days out from cardiac arrest, the patient is unlikely to ever regain meaningful neurologic function. 09/10: no change in neuro exam. still persistently comatose with severe myoclonus. family meeting today with palliative care. Objective Vital Signs Date Time Temp Pulse Resp B/P Pulse Ox O2 Delivery O2 Flow Rate FiO2 09/10/16 11:10 100 40 09/10/16 06:00 99.1 74 20 120/75 134/75 09/07/16 12:56 Ventilator Intake and Output 09/09/16 09/09/16 09/10/16 08:00 16:00 00:00 Intake Total 794 ml 604 ml 468 ml Output Total 425 ml 425 ml 525 ml Balance 369 ml 179 ml -57 ml Result Diagram: 09/10/16 0350 09/10/[address] of the head shows no acute findings Chest x-ray left-sided infiltrates Objective Remarks GENERAL: 50-year-old morbidly obese male who is comatose on the vent, sedated, severe distress and severe myoclonus. HEENT: Abrasion on bridge of nose. Pupils equal but unreactive bilaterally at 2mm. Dried blood in bilateral nostrils, and cheeks. No septal hematoma. NECK: Tracheostomy site intact, clean and dry. CARDIOVASCULAR: normal rate, regular rhythm. sinus by tele. RESPIRATORY: Ventilated through trach. Bilateral breath sounds, diminished at the bases GASTROINTESTINAL: Abdomen soft, morbidly obese MUSCULOSKELETAL: No obvious deformities. No clubbing. No cyanosis. No edema. All distal pulses intact. NEUROLOGICAL: Patient is comatose. GCS 3, RASS -5. off sedation. severe myoclonus. jerking movements are not stereotypic or rhythmic, but are timed with vent firing or movement of his extremities. A/P Assessment and Plan Assessment: 50yM with super morbid obesity male with acute on chronic respiratory failure, now presenting with asystolic cardiac arrest, and evidence of severe hypoxic ischemic encephalopathy both clinically and radiographically. course complicated by HCAP vs. aspiration pneumonia, hypoxic respiratory failure, and severe myoclonus. Will need to discuss with family. for now our goals are aggressive in this very critically ill patient, but given the overwhelming evidence, unlikely the patient will ever gain meaningful neurologic recovery. Remains very critically ill at this time. Neuro/Psych: Severe Anoxic brain injury secondary to cardiac arrest Severe Myoclonus - goal normothermia, on cooling blanket. - will attempt to use propofol and versed to manage myoclonus, but may be forced to again restart nimbex to prevent patient harm. - continue cerebyx. - continue keppra 1gm iv q12h. - MRI 09/08: evidence of severe anoxic injury - EEG 09/08: intermittent sharp spikes consistent with anoxia Pulm: Acute hypercarbic respiratory failure Probable respiratory arrest followed by cardiac arrest JACOB/OHS History of staph aureus pneumonia and ARDS Healthcare associated pneumonia - Currently on PRVC mode of ventilation via trach (#6 Shiley) - Ventilator bundle. DuoNeb q6hr and PRN - Broad-spectrum antibiotics - no SBT today given neurologic exam. CV: Asystolic cardiac arrest Lactic acidosis from cardiac arrest- improving. Sinus Tachycardia - From the history that appears like patient had respiratory arrest followed by cardiac arrest - Status post CPR for approximately 14 minutes and epinephrine 4 followed by ROSC. Evidence of severe anoxic brain injury - Monitor HR and BP keep MAP>65mmHg - failure to completely clear lactate in the setting of critical illness is a poor prognostic factor in survival. cardiac output is optimized. uop adequate. - continue Levophed for map > 65 mmHg. - continue propranolol 20mg po q6h to mitigate severe sympathetic outflow. - metoprolol 5mg iv q4h prn for HR > 110. /FEN: - Monitor renal function, I/O's, electrolytes replacement per protocol. GI: Super Morbid Obesity Acute protein calorie malnutrition- moderate - Nothing by mouth, IV Protonix ID: Severe sepsis Health care associated pneumonia Previous Staph aureus, pseudomonas pneumonia - Sputum blood and urine cultures ordered - Narrow spectrum to Levaquin for MSSA. d/c vanc/azactam/flagyl. anticipated stop date 09/12 - sputum culture growing MSSA. Heme: Leukocytosis secondary to sepsis and stress Monitor CBC/coags Endo: Diabetes mellitus, poorly controlled - SSI for glycemic control with sliding scale insulin every 4 hours DVT, GI prophylaxis -Bilateral lower extremity SCDs. IV Protonix 40 mg daily. Lovenox 40 mg sq BID dispo: remain in the ICU. very critically ill and declining clinically. if we withdraw support, he will . family wants aggressive care until additional family discussions can be made. CCT 31 MIN excluding procedures Js Garrett MD Sep 10, 2016 19:43
[2016-09-10] MEDS: LEVOFLOXACIN 750 MG PREMIX INJ 150 ML IV SCH (21:10)
[2016-09-10] MEDS: PANTOPRAZOLE SODIUM 40 MG VIAL IV PUSH SCH (21:10)
[2016-09-10] MEDS: NOREPINEPHRINE INJ 4 MG in SODIUM CHLOR 0.9% 250 ML INJ 246 ML IV SCH (22:39)
[2016-09-11] VITALS (18 sets, daily range): BP systolic 68–123; BP diastolic 50–105; PULSE 69–96; RESP 20; TEMP 98.6–101.4; O2SAT 94–100
[2016-09-11] MEDS: PROPOFOL 1000 MG/100 ML INJ 100 ML IV SCH ×5 (01:25→19:57)
[2016-09-11] MEDS: INSULIN ASPART SUPPLEMENTAL SCALE SQ SCH ×6 (02:00→21:16)
[2016-09-11] MEDS: CHLORHEXIDINE GLUCONATE 2 % 1 PACK (2 CLOTHS) TOP SCH (04:00)
[2016-09-11 04:35] LABS: MEAN CELL VOLUME 82.1 FL (80.0-100.0); MEAN CORPUSCULAR HEMOGLOBIN 26.7 PG (27.0-34.0); MEAN CORPUSCULAR HGB CONC 32.5 % (32.0-36.0); PLATELET COUNT 301 TH/MM3 (150-450); RED BLOOD COUNT 4.15 MIL/MM3 (4.50-5.90); RED CELL DISTRIBUTION WIDTH 14.6 % (11.6-17.2)
[2016-09-11 04:55] LABS: BICARBONATE 22.6 MEQ/L (21.0-32.0); POTASSIUM 3.5 MEQ/L (3.5-5.1)
[2016-09-11] MEDS: PROPRANOLOL HCL 20 MG TAB PO SCH ×4 (05:06→22:21)
[2016-09-11] MEDS: PHENYTOIN INJ 100 MG/2 ML VIAL IV SCH ×3 (05:07→20:19)
[2016-09-11 05:11] LABS: REVIEW FLAG FINAL
[2016-09-11] MEDS: levETIRAcetam 1000 MG INJ 100 ML IV SCH ×2 (07:38→19:56)
[2016-09-11] MEDS: CHLORHEXIDINE 0.12% (ORAL KIT) 15 ML CUP MT SCH ×2 (07:39→19:57)
[2016-09-11] MEDS: MIDAZOLAM 100 MG/NS 100 ML DRIP Premix IV SCH ×2 (09:55→18:28)
--- NOTE | 2016-09-11 10:36 | HHI.HCPN ---
Reason for visit a. To assist with evaluation and management of symptoms including: dyspnea, encephalopathy. b. To assist medical decision maker(s) with: better understanding of current medical conditions; weighing benefits/burdens of medical treatment options; making medical treatment decisions. . Subjective/Interval History Patient seen and examined in ICU. Brother/KIMBERLY Dougherty and 2 daughters at bedside. Febrile, Tmax 101.4. On mech vent FiO2 50%. WBC continues to increase now 31. Discussed with Dr. Garrett and nurse, Kinza. . Family/friend interactions Met with brother (Farhat/ KIMBERLY) and 2 daughters medical update provided. Family elects NO CODE and no further escalation of care. Ancipitate withdrawal of life support in coming day(s) when family able to coordinate timing. They will call later today. . Advance Directives Health Care Surrogate: Copy in medical record Advance Directive Specifics Date completed: 03/26/16 . Health Care Surrogate(s): Has designated his brother Farhat as healthcare surrogate. Documented care wishes: No Living Will. . Significant change in goals: NO CODE. No further escalation of care. Anticipate transition to comfort measures with withdrawal of life support in the coming day(s), timing to be determined later today. Objective Vital Signs Date Time Temp Pulse Resp B/P Pulse Ox O2 Delivery O2 Flow Rate FiO2 09/11/16 08:00 50 09/11/16 08:00 101.4 87 20 94/50 95 09/11/16 07:52 95 Ventilator 09/11/16 07:52 95 50 09/11/16 04:44 100 50 09/11/16 04:00 72 96/56 105/105 09/11/16 04:00 50 09/11/16 04:00 99.7 78 20 96/56 100 105/105 09/11/16 01:15 98 50 09/11/16 00:00 50 09/11/16 00:00 72 95/59 80/70 09/11/16 00:00 98.6 74 20 95/59 100 80/70 09/10/16 21:41 100 50 09/10/16 20:00 72 99/58 108/80 09/10/16 20:00 50 09/10/16 20:00 99.8 72 20 99/58 100 108/80 09/10/16 18:00 68 09/10/16 16:00 80 09/10/16 16:00 50 09/10/16 16:00 80 110/65 103/79 09/10/16 16:00 99.6 80 27 110/65 96 103/97 09/10/16 14:00 72 09/10/16 12:00 50 09/10/16 12:00 71 09/10/16 12:00 99.1 71 16 85/50 96 96/57 09/10/16 12:00 71 85/50 96/57 09/10/16 11:10 100 40 Intake & Output 09/11/16 09/11/16 07:00 19:00 Intake Total 1349 ml Output Total 1050 ml Balance 299 ml Intake Oral 0 ml IV Total 1349 ml Output Urine Total 950 ml Gastric Drainage Total 100 ml # Bowel Movements 0 Physical Exam CONSTITUTIONAL/GENERAL: This is an overweight patient, comatose, sedated on [facility] vent. TUBES/LINES/DRAINS: OG to suction, Trach to vent, PIVs, right femoral line, Becker, SCDs SKIN: Dried blood on face. No jaundice, rashes, or lesions. Ecchymoses on upper extremities. No wounds seen anteriorly. Skin cool, hypothermic. EYES: eyes closed. ENT: Unable to assess hearing. Nose with dried blood. NECK: Tracheostomy to vent, site clean and dry. CARDIOVASCULAR: regular rate, regular rhythm. RESPIRATORY/CHEST: Symmetric, unlabored respirations on vent. Breath sounds diminished bilaterally. GASTROINTESTINAL: Abdomen soft, protuberant. OG to suction greenish fluid. GENITOURINARY: Without palpable bladder distension. Becker catheter in place. MUSCULOSKELETAL: Extremities without clubbing, cyanosis, or edema. No mottling or clubbing. NEUROLOGICAL: comatose. Sedated. PSYCHIATRIC: comatose. . Diagnostic Tests Laboratory Laboratory Tests Test 09/08/16 09/08/16 09/09/16 09/10/16 14:10 18:30 01:50 03:50 Lactic Acid Level 1.9 mmol/L 1.9 mmol/L 1.6 mmol/L (0.4-2.0) (0.4-2.0) (0.4-2.0) White Blood Count 20.8 TH/MM3 25.6 TH/MM3 (4.0-11.0) (4.0-11.0) Red Blood Count 4.28 MIL/MM3 4.11 MIL/MM3 (4.50-5.90) (4.50-5.90) Hemoglobin 11.1 GM/DL 11.0 GM/DL (13.0-17.0) (13.0-17.0) Hematocrit 35.7 % 34.2 % (39.0-51.0) (39.0-51.0) Mean Corpuscular Volume 83.3 FL 83.2 FL (80.0-100.0) (80.0-100.0) Mean Corpuscular Hemoglobin 25.8 PG 26.6 PG (27.0-34.0) (27.0-34.0) Mean Corpuscular Hemoglobin 31.0 % 32.0 % Concent (32.0-36.0) (32.0-36.0) Red Cell Distribution Width 14.6 % 14.9 % (11.6-17.2) (11.6-17.2) Platelet Count 294 TH/MM3 251 TH/MM3 (150-450) (150-450) Mean Platelet Volume 8.8 FL 9.1 FL (7.0-11.0) (7.0-11.0) Sodium Level 146 MEQ/L 144 MEQ/L (136-145) (136-145) Potassium Level 3.3 MEQ/L 3.0 MEQ/L (3.5-5.1) (3.5-5.1) Chloride Level 111 MEQ/L 109 MEQ/L (98-107) (98-107) Carbon Dioxide Level 27.7 MEQ/L 24.1 MEQ/L (21.0-32.0) (21.0-32.0) Anion Gap 7 MEQ/L (5-15) 11 MEQ/L (5-15) Blood Urea Nitrogen 17 MG/DL (7-18) 14 MG/DL (7-18) Creatinine 0.73 MG/DL 0.61 MG/DL (0.60-1.30) (0.60-1.30) Estimat Glomerular Filtration 114 ML/MIN 140 ML/MIN Rate (>89) (>89) Random Glucose 98 MG/DL 105 MG/DL (74-106) (74-106) Calcium Level 8.3 MG/DL 7.9 MG/DL (8.5-10.1) (8.5-10.1) Total Bilirubin 0.5 MG/DL (0.2-1.0) Direct Bilirubin 0.2 MG/DL (0.0-0.2) Indirect Bilirubin 0.3 MG/DL (0.0-0.8) Gamma Glutamyl Transpeptidase 32 U/L (15-85) Aspartate Amino Transf 59 U/L (15-37) (AST/SGOT) Alanine Aminotransferase 26 U/L (12-78) (ALT/SGPT) Alkaline Phosphatase 72 U/L (45-117) Total Protein 6.1 GM/DL (6.4-8.2) Albumin 2.4 GM/DL (3.4-5.0) Test 09/10/16 09/11/16 18:20 03:55 Potassium Level 3.7 MEQ/L 3.5 MEQ/L (3.5-5.1) (3.5-5.1) White Blood Count 31.0 TH/MM3 (4.0-11.0) Red Blood Count 4.15 MIL/MM3 (4.50-5.90) Hemoglobin 11.1 GM/DL (13.0-17.0) Hematocrit 34.0 % (39.0-51.0) Mean Corpuscular Volume 82.1 FL (80.0-100.0) Mean Corpuscular Hemoglobin 26.7 PG (27.0-34.0) Mean Corpuscular Hemoglobin 32.5 % Concent (32.0-36.0) Red Cell Distribution Width 14.6 % (11.6-17.2) Platelet Count 301 TH/MM3 (150-450) Mean Platelet Volume 9.4 FL (7.0-11.0) Sodium Level 143 MEQ/L (136-145) Chloride Level 109 MEQ/L (98-107) Carbon Dioxide Level 22.6 MEQ/L (21.0-32.0) Anion Gap 11 MEQ/L (5-15) Blood Urea Nitrogen 13 MG/DL (7-18) Creatinine 0.59 MG/DL (0.60-1.30) Estimat Glomerular Filtration 145 ML/MIN Rate (>89) Random Glucose 118 MG/DL (74-106) Calcium Level 8.2 MG/DL (8.5-10.1) Result Diagram: 7/11/17 0355 09/11/16 0355 Microbiology Microbiology Date/Time Procedure Status Source Growth 09/06/16 21:30 Gram Stain - Final Complete Sputum Endotracheal 09/06/16 21:30 Sputum Culture - Final Complete Staphylococcus Aureus 09/06/16 15:40 Aerobic Blood Culture - Final Complete Blood Peripheral NO GROWTH IN 5 DAYS 09/06/16 15:40 Anaerobic Blood Culture - Final Complete Blood Peripheral NO GROWTH IN 5 DAYS 09/06/16 15:30 Urine Culture - Final Complete Urine Catheterized Urine NO GROWTH IN 48 HOURS. . Imaging Last Impressions Brain MRI 09/08/16 0000 Signed Impressions: Service Date/Time: Thursday, September 08, 2016 12:24 - CONCLUSION: 1. Diffuse restricted diffusion of scott matter of bilateral hemispheres consistent with anoxic brain injury. 2. No midline shift or mass effect. Wale Dalal MD Maxillofacial CT 09/06/16 0000 Signed Impressions: Service Date/Time: September 16:12 - CONCLUSION: 1. No acute bony fracture. 2. Chronic bilateral ethmoid sinus disease. Rodrigo Martinez MD Head CT 09/06/16 0000 Signed Impressions: Service Date/Time: September 16:07 - CONCLUSION: 1. No acute intracranial hemorrhage. 2. Unremarkable exam for patient's age. Rodrigo Martinez MD Chest X-Ray 09/06/16 0000 Signed Impressions: Service Date/Time: September 15:30 - CONCLUSION: 1. The tracheostomy tube and NG tube appear in good position. 2. Mild interstitial infiltrates are seen in the left upper lung. 3. Otherwise, no significant changes prior study. Rodrigo Martinez MD Cervical Spine CT 09/06/16 0000 Signed Impressions: Service Date/Time: September 16:12 - CONCLUSION: 1. No acute fracture or subluxation. 2. Consolidation of the right lung apex with patchy airspace disease in the left lung apex. This may reflect aspiration, partial collapse, or edema. 3. Multilevel degenerative spondylosis of the cervical spine most prominently from C4-C7. Terrell Acevedo MD . Procedures * 09/06/16 code blue, intubation, right femoral head exchange catheter. . Assessment and Plan Disease Oriented Problem List: (1) Anoxic encephalopathy (2) Myoclonus (3) Cardiac asystole (4) Acute and chronic respiratory failure (5) Diabetes mellitus type 2 in obese (6) JACOB (obstructive sleep apnea) (7) Staphylococcus aureus pneumonia (8) HCAP (healthcare-associated pneumonia) (9) Obesity hypoventilation syndrome (10) Cardiac arrest Symptom Scale: (1) Encephalopathy 0-10 Scale: Unable to quantify (2) Dyspnea 0-10 Scale: Unable to quantify (3) Pain 0-10 Scale: Unable to quantify Pertinent Non-Medical Issues Psychosocial: , has 2 daughters. Supported by his local brother/ HCS Farhat Leger. Spiritual: Legal:Patient is not able to participate in decision-making due to clinical condition. Has completed designation of health care surrogate (HCS) naming his brother Farhat Zarco as HCS. Ethical issues impacting care: . Important Contacts * Farhat Leger, brother/[facility]: [phone] * Gagandeep Leger brother: [phone] . Prognosis Patient comatose, sedated, paralyzed following asystolic arrest with return of spontaneous circulation after proximally 14 minutes, possible anoxic brain injury, currently hypothermic (CODE COOL). Will need some time to monitor after sedation/paralytic are lifted to determine neurologic status. Overall prognosis given generalized poor health since March 2016 appears poor for meaningful recovery. Will need additional time to thoroughly prognosticate. . Code Status: No Code Plan * Patient is not able to participate in decision-making due to clinical condition. Has completed designation of health care surrogate (HCS) naming his brother Farhat Leger as HCS. * NO CODE * Palliative care met with brother (Farhat/ [facility]) and 2 daughters medical update provided. Family elects NO CODE and no further escalation of care. Ancipitate withdrawal of life support in coming day(s) when family able to coordinate timing. They will call later today. * SYMPTOMS: Pain: sedated and paralyzed at this time. Dyspnea: on mech vent. No new medication recommendations at this time. Will monitor. * Palliative care will continue to follow throughout hospital course to assist with symptom management and clarification of goals as needed. . Juju Ramos Sep 11, 2016 10:36
--- NOTE | 2016-09-11 12:55 | HHI.CCPN ---
Subjective Remarks/Hospital Course Hospital Course: Patient is a 50-year-old male with past medical history significant for super morbid obesity, type 2 diabetes, untreated sleep apnea who was admitted for acute on chronic hypoxic and hypercapnic respiratory failure with inability to wean for a very long time and had hospitalization from 03/24/16-08/13/16. During this period patient underwent tracheostomy Eric and had numerous complications including staph aureus and Pseudomonas pneumonia. He also needed a tracheostomy revision during hospitalization. He was eventually discharged on 08/13/16 to rehabilitation and then to home. He was brought in by [facility] s/p cardiac arrest. Apparently he was cleaning his tracheostomy tube complained of sudden onset shortness of breath with difficulty breathing and then had a witnessed collapse and became pulseless. Patient was in asystole when EMS arrived and had ROSC after epinephrine x4. Estimated down time was about 14 minutes. Pt was in sinus tachycardia when he arrived to ED. Breath sounds were equal bilaterally and pt was bagged from his tracheostomy site. Patient was placed ventilator on PRVC mode and ABG showed, hypercapnic respiratory failure. Abnormal labs include leukocytosis at 25,000, Lactic acid elevated at 8.3, likely from cardiac arrest and initial Troponin negative. UA showed WBC 30. CXR showed Left upper lung infiltrates. Pt given vancomycin, aztreonam and azithromycin in ED. CT brain negative. I evaluated the patient emergently in the ED. Patient's neuro exam was poor. He has not received any sedation or paralyzing medications. He is unconscious with No withdrawal to deep pain. Pupils are 1 mm, nonreactive. Patient had myoclonic jerks. Given the patient's relatively young age, and a normal CT of the brain, I will proceed with induced hypothermia for neuro protection. I reviewed the CAT scan with radiologist Dr. Martinez and he agrees there are no findings of early anoxic brain injury. In the ICU I placed the right femoral heat exchange catheter. Patient will also be on vancomycin and Azactam and Flagyl to cover for healthcare associated pneumonia. Patient will be loaded with 1 g of Cerebyx followed by 100 mg every 8 hours Subjective: 09/07: target temp reached at midnight. bradycardic, but uop adequate. map > 65. sputum gram stain with rare GPCs in pairs. on empiric abx. 09/08: rewarmed this morning. on sedation and paralytic hold, patient had severe myoclonus causing vent dyssynchrony and biting of lips and tongue despite bite block. required re-paralyzation to control his myoclonus. EEG and MRI ordered. I was called back again to the bedside for tachycardia and hypotension, HR > 160 which appeared to be SVT. EKG was suspicious for SVT. I gave 12mg adenosine at bedside on rhythm strip and HR decreased from 152 to 138, but still difficult to tell if ST or SVT. Then gave 100mg esmolol bolus with HR response to [address] evidence of ST on EKG. Also, temp climbed rapidly from 36 to 39.9. reconnected cooling catheter to assist in maintaining normothermia. Levophed started to maintain map > 65 mmHg in the setting of probable SVT. Patient neurologically unresponsive, pupils are 2mm, but nonreactive. GCS 3. 09/09: MRI yesterday with evidence of severe anoxia. EEG with intermittent spikes , again suggestive of anoxia. every time neuromuscular blockade is weaned, patient becomes severely myoclonic and hyperthermic, requiring replacement of neuromuscular blockade. With this poor neuro exam 24h after therapeutic hypothermia and 3 days out from cardiac arrest, the patient is unlikely to ever regain meaningful neurologic function. 09/10: no change in neuro exam. still persistently comatose with severe myoclonus. family meeting today with palliative care. 09/11: family meeting today. family agrees they want to pursue withdraw of care, but want to coordinate family. no change in clinical exam, patient remains comatose. Objective Vital Signs Date Time Temp Pulse Resp B/P Pulse Ox O2 Delivery O2 Flow Rate FiO2 09/11/16 11:03 99 Ventilator 09/11/16 10:57 50 09/11/16 08:00 101.4 87 20 94/50 Intake and Output 09/10/16 09/10/16 09/10/16 07:59 15:59 23:59 Intake Total 728 ml 815 ml 744 ml Output Total 410 ml 400 ml 450 ml Balance 318 ml 415 ml 294 ml Result Diagram: 09/11/16 0355 09/11/[address] of the head shows no acute findings Chest x-ray left-sided infiltrates Objective Remarks GENERAL: 50-year-old morbidly obese male who is comatose on the vent, sedated, severe distress and severe myoclonus. HEENT: Abrasion on bridge of nose. Pupils equal but unreactive bilaterally at 2mm. Dried blood in bilateral nostrils, and cheeks. No septal hematoma. NECK: Tracheostomy site intact, clean and dry. CARDIOVASCULAR: normal rate, regular rhythm. sinus by tele. RESPIRATORY: Ventilated through trach. Bilateral breath sounds, diminished at the bases GASTROINTESTINAL: Abdomen soft, morbidly obese MUSCULOSKELETAL: No obvious deformities. No clubbing. No cyanosis. No edema. All distal pulses intact. NEUROLOGICAL: Patient is comatose. GCS 3, RASS -5. off sedation. severe myoclonus. jerking movements are not stereotypic or rhythmic, but are timed with vent firing or movement of his extremities. A/P Assessment and Plan Assessment: 50yM with super morbid obesity male with acute on chronic respiratory failure, now presenting with asystolic cardiac arrest, and evidence of severe hypoxic ischemic encephalopathy both clinically and radiographically. course complicated by HCAP vs. aspiration pneumonia, hypoxic respiratory failure, and severe myoclonus. Neuro/Psych: Severe Anoxic brain injury secondary to cardiac arrest Severe Myoclonus - goal normothermia, on cooling blanket. - will attempt to use propofol and versed to manage myoclonus, but may be forced to again restart nimbex to prevent patient harm. - continue cerebyx. - continue keppra 1gm iv q12h. - MRI 09/08: evidence of severe anoxic injury - EEG 09/08: intermittent sharp spikes consistent with anoxia Pulm: Acute hypercarbic respiratory failure Probable respiratory arrest followed by cardiac arrest JACOB/OHS History of staph aureus pneumonia and ARDS Healthcare associated pneumonia - Currently on PRVC mode of ventilation via trach (#6 Shiley) - Ventilator bundle. DuoNeb q6hr and PRN - Broad-spectrum antibiotics - no SBT today given neurologic exam. CV: Asystolic cardiac arrest Lactic acidosis from cardiac arrest- improving. Sinus Tachycardia - From the history that appears like patient had respiratory arrest followed by cardiac arrest - Status post CPR for approximately 14 minutes and epinephrine 4 followed by ROSC. Evidence of severe anoxic brain injury - Monitor HR and BP keep MAP>65mmHg - failure to completely clear lactate in the setting of critical illness is a poor prognostic factor in survival. cardiac output is optimized. uop adequate. - continue Levophed for map > 65 mmHg. - continue propranolol 20mg po q6h to mitigate severe sympathetic outflow. - metoprolol 5mg iv q4h prn for HR > 110. /FEN: - Monitor renal function, I/O's, electrolytes replacement per protocol. GI: Super Morbid Obesity Acute protein calorie malnutrition- moderate - Nothing by mouth, IV Protonix ID: Severe sepsis Health care associated pneumonia Previous Staph aureus, pseudomonas pneumonia - Sputum blood and urine cultures ordered - Narrow spectrum to Levaquin for MSSA. anticipated stop date 09/12 - sputum culture growing MSSA. Heme: Leukocytosis secondary to sepsis and stress Monitor CBC/coags Endo: Diabetes mellitus, poorly controlled - SSI for glycemic control with sliding scale insulin every 4 hours DVT, GI prophylaxis -Bilateral lower extremity SCDs. IV Protonix 40 mg daily. Lovenox 40 mg sq BID dispo: remain in the ICU. Js Garrett MD Sep 11, 2016 12:55
[2016-09-11] MEDS: ENOXAPARIN SODIUM 40 MG/0.4 ML SYRINGE SQ SCH (18:30)
[2016-09-11] MEDS: NOREPINEPHRINE INJ 4 MG in SODIUM CHLOR 0.9% 250 ML INJ 246 ML IV SCH (19:57)
[2016-09-11] MEDS: LEVOFLOXACIN 750 MG PREMIX INJ 150 ML IV SCH (19:57)
[2016-09-11] MEDS: PANTOPRAZOLE SODIUM 40 MG VIAL IV PUSH SCH (19:57)
[2016-09-12] VITALS (43 sets, daily range): BP systolic 88–141; BP diastolic 51–76; PULSE 69–96; RESP 20; TEMP 100.1–101.3; O2SAT 94–100
[2016-09-12] MEDS: NOREPINEPHRINE INJ 4 MG in SODIUM CHLOR 0.9% 250 ML INJ 246 ML IV SCH ×4 (01:50→14:47)
[2016-09-12] MEDS: PROPOFOL 1000 MG/100 ML INJ 100 ML IV SCH ×4 (01:51→14:37)
[2016-09-12] MEDS: CHLORHEXIDINE GLUCONATE 2 % 1 PACK (2 CLOTHS) TOP SCH (01:52)
[2016-09-12] MEDS: INSULIN ASPART SUPPLEMENTAL SCALE SQ SCH ×5 (01:52→17:52)
[2016-09-12] MEDS: MIDAZOLAM 100 MG/NS 100 ML DRIP Premix IV SCH ×2 (03:35→14:46)
[2016-09-12 04:26] LABS: HEMATOCRIT 32.9 % (39.0-51.0); MEAN CELL VOLUME 81.8 FL (80.0-100.0); MEAN CORPUSCULAR HEMOGLOBIN 26.1 PG (27.0-34.0); MEAN CORPUSCULAR HGB CONC 31.9 % (32.0-36.0); PLATELET COUNT 289 TH/MM3 (150-450); RED BLOOD COUNT 4.03 MIL/MM3 (4.50-5.90); RED CELL DISTRIBUTION WIDTH 14.9 % (11.6-17.2); REVIEW FLAG FINAL; WHITE BLOOD COUNT 21.8 TH/MM3 (4.0-11.0)
[2016-09-12 04:58] LABS: BICARBONATE 25.8 MEQ/L (21.0-32.0)
[2016-09-12] MEDS: PROPRANOLOL HCL 20 MG TAB PO SCH ×3 (05:56→17:52)
[2016-09-12] MEDS: PHENYTOIN INJ 100 MG/2 ML VIAL IV SCH ×2 (05:56→14:37)
[2016-09-12] MEDS: POTASSIUM CHLOR 40 MEQ PREMIX 100 ML IV PRN ×2 (06:59→08:11)
--- NOTE | 2016-09-12 07:20 | HHI.CCPN ---
Subjective Remarks/Hospital Course Hospital Course: Patient is a 50-year-old male with past medical history significant for super morbid obesity, type 2 diabetes, untreated sleep apnea who was admitted for acute on chronic hypoxic and hypercapnic respiratory failure with inability to wean for a very long time and had hospitalization from 03/24/16-08/13/16. During this period patient underwent tracheostomy Eric and had numerous complications including staph aureus and Pseudomonas pneumonia. He also needed a tracheostomy revision during hospitalization. He was eventually discharged on 08/13/16 to rehabilitation and then to home. He was brought in by [facility] s/p cardiac arrest. Apparently he was cleaning his tracheostomy tube complained of sudden onset shortness of breath with difficulty breathing and then had a witnessed collapse and became pulseless. Patient was in asystole when EMS arrived and had ROSC after epinephrine x4. Estimated down time was about 14 minutes. Pt was in sinus tachycardia when he arrived to ED. Breath sounds were equal bilaterally and pt was bagged from his tracheostomy site. Patient was placed ventilator on PRVC mode and ABG showed, hypercapnic respiratory failure. Abnormal labs include leukocytosis at 25,000, Lactic acid elevated at 8.3, likely from cardiac arrest and initial Troponin negative. UA showed WBC 30. CXR showed Left upper lung infiltrates. Pt given vancomycin, aztreonam and azithromycin in ED. CT brain negative. I evaluated the patient emergently in the ED. Patient's neuro exam was poor. He has not received any sedation or paralyzing medications. He is unconscious with No withdrawal to deep pain. Pupils are 1 mm, nonreactive. Patient had myoclonic jerks. Given the patient's relatively young age, and a normal CT of the brain, I will proceed with induced hypothermia for neuro protection. I reviewed the CAT scan with radiologist Dr. Martinez and he agrees there are no findings of early anoxic brain injury. In the ICU I placed the right femoral heat exchange catheter. Patient will also be on vancomycin and Azactam and Flagyl to cover for healthcare associated pneumonia. Patient will be loaded with 1 g of Cerebyx followed by 100 mg every 8 hours Subjective: 09/07: target temp reached at midnight. bradycardic, but uop adequate. map > 65. sputum gram stain with rare GPCs in pairs. on empiric abx. 09/08: rewarmed this morning. on sedation and paralytic hold, patient had severe myoclonus causing vent dyssynchrony and biting of lips and tongue despite bite block. required re-paralyzation to control his myoclonus. EEG and MRI ordered. I was called back again to the bedside for tachycardia and hypotension, HR > 160 which appeared to be SVT. EKG was suspicious for SVT. I gave 12mg adenosine at bedside on rhythm strip and HR decreased from 152 to 138, but still difficult to tell if ST or SVT. Then gave 100mg esmolol bolus with HR response to [address] evidence of ST on EKG. Also, temp climbed rapidly from 36 to 39.9. reconnected cooling catheter to assist in maintaining normothermia. Levophed started to maintain map > 65 mmHg in the setting of probable SVT. Patient neurologically unresponsive, pupils are 2mm, but nonreactive. GCS 3. 09/09: MRI yesterday with evidence of severe anoxia. EEG with intermittent spikes , again suggestive of anoxia. every time neuromuscular blockade is weaned, patient becomes severely myoclonic and hyperthermic, requiring replacement of neuromuscular blockade. With this poor neuro exam 24h after therapeutic hypothermia and 3 days out from cardiac arrest, the patient is unlikely to ever regain meaningful neurologic function. 09/10: no change in neuro exam. still persistently comatose with severe myoclonus. family meeting today with palliative care. 09/11: family meeting today. family agrees they want to pursue withdraw of care, but want to coordinate family. no change in clinical exam, patient remains comatose. 09/12: family coming in today. likely plan to withdraw. no clinical changes. severely encephalopathic and comatose. myclonus improved with versed infusion. Objective Vital Signs Date Time Temp Pulse Resp B/P Pulse Ox O2 Delivery O2 Flow Rate FiO2 09/12/16 04:01 95 50 09/12/16 04:00 98.2 80 20 97/55 108/61 09/11/16 11:03 Ventilator Intake and Output 09/11/16 09/11/16 09/12/16 08:00 16:00 00:00 Intake Total 605 ml 826 ml 756 ml Output Total 600 ml 675 ml 1100 ml Balance 5 ml 151 ml -344 ml Result Diagram: 09/12/16 0345 09/12/[address] of the head shows no acute findings Chest x-ray left-sided infiltrates Objective Remarks GENERAL: 50-year-old morbidly obese male who is comatose on the vent, sedated, HEENT: Abrasion on bridge of nose. Pupils equal but unreactive bilaterally at 2mm. Dried blood in bilateral nostrils, and cheeks. No septal hematoma. NECK: Tracheostomy site intact, clean and dry. CARDIOVASCULAR: normal rate, regular rhythm. sinus by tele. RESPIRATORY: Ventilated through trach. Bilateral breath sounds, diminished at the bases GASTROINTESTINAL: Abdomen soft, morbidly obese MUSCULOSKELETAL: No obvious deformities. No clubbing. No cyanosis. No edema. All distal pulses intact. NEUROLOGICAL: Patient is comatose. GCS 3, RASS -5. severe myoclonus. jerking movements are not stereotypic or rhythmic, but are timed with vent firing or movement of his extremities. A/P Assessment and Plan Assessment: 50yM with super morbid obesity male with acute on chronic respiratory failure, now presenting with asystolic cardiac arrest, and evidence of severe hypoxic ischemic encephalopathy both clinically and radiographically. course complicated by HCAP vs. aspiration pneumonia, hypoxic respiratory failure, and severe myoclonus. Based on clinical exam, no real hope for meaningful neurologic recovery. Family wishes to pursue withdraw of care. Neuro/Psych: Severe Anoxic brain injury secondary to cardiac arrest Severe Myoclonus - goal normothermia, on cooling blanket. - will attempt to use propofol and versed to manage myoclonus, but may be forced to again restart nimbex to prevent patient harm. - continue cerebyx. - continue keppra 1gm iv q12h. - MRI 09/08: evidence of severe anoxic injury - EEG 09/08: intermittent sharp spikes consistent with anoxia Pulm: Acute hypercarbic respiratory failure Probable respiratory arrest followed by cardiac arrest JACOB/OHS History of staph aureus pneumonia and ARDS Healthcare associated pneumonia - Currently on PRVC mode of ventilation via trach (#6 Shiley) - Ventilator bundle. DuoNeb q6hr and PRN - Broad-spectrum antibiotics - no SBT today given neurologic exam. CV: Asystolic cardiac arrest Lactic acidosis from cardiac arrest- improving. Sinus Tachycardia - From the history that appears like patient had respiratory arrest followed by cardiac arrest - Status post CPR for approximately 14 minutes and epinephrine 4 followed by ROSC. Evidence of severe anoxic brain injury - Monitor HR and BP keep MAP>65mmHg - failure to completely clear lactate in the setting of critical illness is a poor prognostic factor in survival. cardiac output is optimized. uop adequate. - continue Levophed for map > 65 mmHg. - continue propranolol 20mg po q6h to mitigate severe sympathetic outflow. - metoprolol 5mg iv q4h prn for HR > 110. /FEN: - Monitor renal function, I/O's, electrolytes replacement per protocol. GI: Super Morbid Obesity Acute protein calorie malnutrition- moderate - Nothing by mouth, IV Protonix ID: Severe sepsis Health care associated pneumonia Previous Staph aureus, pseudomonas pneumonia - Sputum blood and urine cultures ordered - Narrow spectrum to Levaquin for MSSA. anticipated stop date 09/12 - sputum culture growing MSSA. Heme: Leukocytosis secondary to sepsis and stress Monitor CBC/coags Endo: Diabetes mellitus, poorly controlled - SSI for glycemic control with sliding scale insulin every 4 hours DVT, GI prophylaxis -Bilateral lower extremity SCDs. IV Protonix 40 mg daily. Lovenox 40 mg sq BID dispo: remain in the ICU. Js Garrett MD Sep 12, 2016 07:20
[2016-09-12] MEDS: levETIRAcetam 1000 MG INJ 100 ML IV SCH (08:11)
[2016-09-12] MEDS: CHLORHEXIDINE 0.12% (ORAL KIT) 15 ML CUP MT SCH (08:11)
--- NOTE | 2016-09-12 10:21 | HHI.HCPN ---
Reason for visit a. To assist with evaluation and management of symptoms including: dyspnea, encephalopathy. b. To assist medical decision maker(s) with: better understanding of current medical conditions; weighing benefits/burdens of medical treatment options; making medical treatment decisions. . Subjective/Interval History Patient seen and examined in ICU. No family available to meet with. Remains sedated. T-max 98.6. WBC 28.6. Discussed with Dr. Garrett and nurse, Alesha. . Family/friend interactions No family available to meet with. Called brotherFarhat the family is making cremation arrangements. They will be in later today to meet with palliative care. 5:45pm: Family arrived and is ready to proceed with withdrawal of life support. Anticipatory guidance provided. Family is appropriately tearful. Requests civil rights investigator for [employer] while family at bedside. Family declines hospice at this time. . Advance Directives Health Care Surrogate: Copy in medical record Advance Directive Specifics Date completed: 03/26/16 . Health Care Surrogate(s): Has designated his brother Farhat as healthcare surrogate. Documented care wishes: No Living Will. . Significant change in goals: NO CODE. Family ready to proceed with transition to comfort with withdrawal of life support. . Objective Vital Signs Date Time Temp Pulse Resp B/P Pulse Ox O2 Delivery O2 Flow Rate FiO2 09/12/16 09:47 99 50 09/12/16 08:00 50 09/12/16 07:08 99 50 09/12/16 07:08 99 Ventilator 09/12/16 04:01 95 50 09/12/16 04:00 50 09/12/16 04:00 98.2 80 20 97/55 94 108/61 09/12/16 04:00 80 97/55 108/61 09/12/16 01:02 95 50 09/12/16 00:00 69 88/51 112/61 09/12/16 00:00 50 09/12/16 00:00 98.6 71 20 88/51 94 112/61 09/11/16 22:02 94 50 09/11/16 20:00 50 09/11/16 20:00 69 96/58 123/67 09/11/16 20:00 69 20 96/58 96 123/67 09/11/16 20:00 98.6 69 20 96/58 96 123/67 09/11/16 19:42 96 50 09/11/16 18:00 77 09/11/16 16:00 79 09/11/16 16:00 50 09/11/16 16:00 79 83/52 99/58 09/11/16 16:00 99.1 79 20 83/52 94 99/58 09/11/16 15:57 94 50 09/11/16 14:00 79 09/11/16 13:28 94 50 09/11/16 12:00 81 09/11/16 12:00 81 85/50 75/68 09/11/16 12:00 99.4 81 20 85/50 94 75/68 09/11/16 12:00 50 09/11/16 11:03 99 Ventilator 09/11/16 10:57 99 50 Intake & Output 09/12/16 09/12/16 07:00 19:00 Intake Total 1408 ml Output Total 2550 ml Balance -1142 ml Intake Oral 0 ml IV Total 1408 ml Output Urine Total 2050 ml Gastric Drainage Total 500 ml # Bowel Movements 0 Physical Exam CONSTITUTIONAL/GENERAL: This is an overweight patient, comatose, sedated on [facility] vent. TUBES/LINES/DRAINS: OG to suction, Trach to vent, PIVs, right femoral arterial line, Becker, SCDs SKIN: Dried blood on face. No jaundice, rashes, or lesions. Ecchymoses on upper extremities. No wounds seen anteriorly. Skin warm, diaphoretic face. EYES: eyes closed. Pupils 2mm no reaction with sedation. Sclera hazy. ENT: Unable to assess hearing. Nose with dried blood. NECK: Tracheostomy to vent, site clean and dry. CARDIOVASCULAR: regular rate, regular rhythm. RESPIRATORY/CHEST: Symmetric, unlabored respirations on vent. Breath sounds diminished bilaterally. Coarse rhonchi upper lobes. GASTROINTESTINAL: Abdomen soft, protuberant. OG to suction greenish fluid. Distant bowel sounds. GENITOURINARY: Without palpable bladder distension. Becker catheter in place. MUSCULOSKELETAL: Extremities without clubbing, cyanosis, or edema. No mottling or clubbing. NEUROLOGICAL: comatose. Sedated. PSYCHIATRIC: comatose. . Diagnostic Tests Laboratory Laboratory Tests Test 09/10/16 09/10/16 09/11/16 09/12/16 03:50 18:20 03:55 03:45 White Blood Count 25.6 TH/MM3 31.0 TH/MM3 21.8 TH/MM3 (4.0-11.0) (4.0-11.0) (4.0-11.0) Red Blood Count 4.11 MIL/MM3 4.15 MIL/MM3 4.03 MIL/MM3 (4.50-5.90) (4.50-5.90) (4.50-5.90) Hemoglobin 11.0 GM/DL 11.1 GM/DL 10.5 GM/DL (13.0-17.0) (13.0-17.0) (13.0-17.0) Hematocrit 34.2 % 34.0 % 32.9 % (39.0-51.0) (39.0-51.0) (39.0-51.0) Mean Corpuscular Volume 83.2 FL 82.1 FL 81.8 FL (80.0-100.0) (80.0-100.0) (80.0-100.0) Mean Corpuscular Hemoglobin 26.6 PG 26.7 PG 26.1 PG (27.0-34.0) (27.0-34.0) (27.0-34.0) Mean Corpuscular Hemoglobin 32.0 % 32.5 % 31.9 % Concent (32.0-36.0) (32.0-36.0) (32.0-36.0) Red Cell Distribution Width 14.9 % 14.6 % 14.9 % (11.6-17.2) (11.6-17.2) (11.6-17.2) Platelet Count 251 TH/MM3 301 TH/MM3 289 TH/MM3 (150-450) (150-450) (150-450) Mean Platelet Volume 9.1 FL 9.4 FL 9.1 FL (7.0-11.0) (7.0-11.0) (7.0-11.0) Sodium Level 144 MEQ/L 143 MEQ/L 144 MEQ/L (136-145) (136-145) (136-145) Potassium Level 3.0 MEQ/L 3.7 MEQ/L 3.5 MEQ/L 3.0 MEQ/L (3.5-5.1) (3.5-5.1) (3.5-5.1) (3.5-5.1) Chloride Level 109 MEQ/L 109 MEQ/L 108 MEQ/L (98-107) (98-107) (98-107) Carbon Dioxide Level 24.1 MEQ/L 22.6 MEQ/L 25.8 MEQ/L (21.0-32.0) (21.0-32.0) (21.0-32.0) Anion Gap 11 MEQ/L (5-15) 11 MEQ/L (5-15) 10 MEQ/L (5-15) Blood Urea Nitrogen 14 MG/DL (7-18) 13 MG/DL (7-18) 9 MG/DL (7-18) Creatinine 0.61 MG/DL 0.59 MG/DL 0.47 MG/DL (0.60-1.30) (0.60-1.30) (0.60-1.30) Estimat Glomerular Filtration 140 ML/MIN 145 ML/MIN 189 ML/MIN Rate (>89) (>89) (>89) Random Glucose 105 MG/DL 118 MG/DL 111 MG/DL (74-106) (74-106) (74-106) Calcium Level 7.9 MG/DL 8.2 MG/DL 8.7 MG/DL (8.5-10.1) (8.5-10.1) (8.5-10.1) Result Diagram: 09/12/16 0345 09/12/16 0345 Imaging Last Impressions Brain MRI 09/08/16 0000 Signed Impressions: Service Date/Time: Thursday, September 08, 2016 12:24 - CONCLUSION: 1. Diffuse restricted diffusion of scott matter of bilateral hemispheres consistent with anoxic brain injury. 2. No midline shift or mass effect. Wale Dalal MD Maxillofacial CT 09/06/16 0000 Signed Impressions: Service Date/Time: September 16:12 - CONCLUSION: 1. No acute bony fracture. 2. Chronic bilateral ethmoid sinus disease. Rodrigo Martinez MD Head CT 09/06/16 0000 Signed Impressions: Service Date/Time: September 16:07 - CONCLUSION: 1. No acute intracranial hemorrhage. 2. Unremarkable exam for patient's age. Rodrigo Martinze MD Chest X-Ray 09/06/16 0000 Signed Impressions: Service Date/Time: September 15:30 - CONCLUSION: 1. The tracheostomy tube and NG tube appear in good position. 2. Mild interstitial infiltrates are seen in the left upper lung. 3. Otherwise, no significant changes prior study. Rodrigo Martinez MD Cervical Spine CT 09/06/16 0000 Signed Impressions: Service Date/Time: September 16:12 - CONCLUSION: 1. No acute fracture or subluxation. 2. Consolidation of the right lung apex with patchy airspace disease in the left lung apex. This may reflect aspiration, partial collapse, or edema. 3. Multilevel degenerative spondylosis of the cervical spine most prominently from C4-C7. Terrell Acevedo MD Procedures * 09/06/16 code blue, intubation, right femoral head exchange catheter. . Assessment and Plan Disease Oriented Problem List: (1) Anoxic encephalopathy (2) Myoclonus (3) Cardiac asystole (4) Acute and chronic respiratory failure (5) Diabetes mellitus type 2 in obese (6) JACOB (obstructive sleep apnea) (7) Staphylococcus aureus pneumonia (8) HCAP (healthcare-associated pneumonia) (9) Obesity hypoventilation syndrome (10) Cardiac arrest Symptom Scale: (1) Encephalopathy 0-10 Scale: Unable to quantify (2) Dyspnea 0-10 Scale: Unable to quantify (3) Pain 0-10 Scale: Unable to quantify Pertinent Non-Medical Issues Psychosocial: , has 2 daughters. Supported by his local brother/ HCS Farhat Leger. Spiritual: Legal:Patient is not able to participate in decision-making due to clinical condition. Has completed designation of health care surrogate (HCS) naming his brother Farhat Zarco as HCS. Ethical issues impacting care: . Important Contacts * Farhat Leger, brother/[facility]: [phone] * Gagandeep Leger, brother: [phone] . Prognosis Patient comatose, sedated, paralyzed following asystolic arrest with return of spontaneous circulation after proximally 14 minutes, possible anoxic brain injury, currently hypothermic (CODE COOL). Will need some time to monitor after sedation/paralytic are lifted to determine neurologic status. Overall prognosis given generalized poor health since March 2016 appears poor for meaningful recovery. Will need additional time to thoroughly prognosticate. . Code Status: No Code Plan * Patient is not able to participate in decision-making due to clinical condition. Has completed designation of health care surrogate (HCS) naming his brother Farhat Leger as HCS. * NO CODE * Palliative care spoke with brother (Farhat/ HCS) via phone, the family is making cremation arrangements and will be here to meet with palliative care later today. * 5:45pm: Family arrived and is ready to proceed with withdrawal of life support. Anticipatory guidance provided. Family is appropriately tearful. Requests civil rights investigator for [employer] while family at bedside. Family declines hospice at this time. * SYMPTOMS: Pain: sedated at this time. Dyspnea: plan for withdrawal of life support. Orders written for withdrawal of life support. * Exhibits B & C signed on chart. * Palliative care will continue to follow throughout hospital course to assist with symptom management and clarification of goals as needed. . Attestation To help prompt me to consider important information that might be impacting today's encounter and assessment, information from prior notes written by myself or my colleagues may have been "brought forward" into today's note. My signature on this note, however, is an attestation that I personally performed the exam, history, and/or decision-making noted today, and, unless otherwise indicated, the interactions with patient, family, and staff as well as the review of records all occurred today. I also attest that the listed assessment and stated plan reflect my best clinical judgment today based on the combination of historical information, prior notes, and today's exam/ interactions. When time spent is documented, it refers only to time spent today by the signer, or if indicated, combined time spent today by collaborating physician/nurse practitioner. Juju Ramos Sep 12, 2016 10:21
[2016-09-12] MEDS: ENOXAPARIN SODIUM 40 MG/0.4 ML SYRINGE SQ SCH (17:54)
[2016-09-12] MEDS ORDERED: MIDAZOLAM 100 MG/ML INJ 100 ML IV SCH (18:15)
[2016-09-12] MEDS ORDERED: LORazepam 2 MG/ML VIAL IV ONE ×2 (18:15→18:30)
[2016-09-12] MEDS ORDERED: MORPHINE SULFATE 8 MG/ML INJ IV PUSH ONE (18:15)
[2016-09-12] MEDS ORDERED: MORPHINE SULFATE 10 MG/ML INJ IV ONE (18:30)
[2016-09-12] MEDS ORDERED: MORPHINE SULFATE 8 MG/ML INJ IV PUSH PRN ×2 (18:45)
[2016-09-12] MEDS ORDERED: ACETAMINOPHEN 650 MG SUPP RECTAL PRN (18:45)
[2016-09-12] MEDS ORDERED: BISACODYL 10 MG SUPP RECTAL PRN (18:45)
[2016-09-12] MEDS ORDERED: LORazepam 2 MG/ML VIAL IV PRN ×2 (18:45)
[2016-09-12] MEDS ORDERED: LORazepam 2 MG/ML VIAL IVS PRN (18:45)
[2016-09-12] MEDS ORDERED: FUROSEMIDE 20 MG/2 ML VIAL IV PRN (18:45)
[2016-09-12] MEDS ORDERED: HYOSCYAMINE 0.5 MG/ML AMP IV PRN (18:45)
[2016-09-12] MEDS ORDERED: MORPHINE SULFATE 8 MG/ML INJ IV PUSH SCH (20:00)
== END 2016-09-12 20:03 | disposition expired | DRG 870 ==
LOC: NEPC 15:12 → NEDA 17:11 → HIME 18:00
PROVIDERS: ADMIT Internal Medicine; ATTEND Internal Medicine
PROC: 5A1955Z Respiratory Ventilation, Greater than 96 Consecutive Hours (ICD-10-PCS; principal; 2016-09-06)
PROC: 06HM33Z Insertion of Infusion Device into Right Femoral Vein, Percutaneous Approach (ICD-10-PCS; 2016-09-06)
PROC: 6A4Z1ZZ Hypothermia, Multiple (ICD-10-PCS; 2016-09-06)
DX: A41.9 Sepsis, unspecified organism (principal); I46.8 Cardiac arrest due to other underlying condition; J96.21 Acute and chronic respiratory failure with hypoxia; G93.1 Anoxic brain damage, not elsewhere classified; J15.211 Pneumonia due to Methicillin susceptible Staphylococcus aureus; Z51.5 Encounter for palliative care; E44.0 Moderate protein-calorie malnutrition; E87.2 Acidosis; Z93.0 Tracheostomy status; J96.22 Acute and chronic respiratory failure with hypercapnia; Z68.43 Body mass index [BMI] 50.0-59.9, adult; E66.2 Morbid (severe) obesity with alveolar hypoventilation; I47.1 Supraventricular tachycardia; R65.20 Severe sepsis without septic shock; G25.3 Myoclonus; E11.65 Type 2 diabetes mellitus with hyperglycemia; S00.31XA Abrasion of nose, initial encounter; M47.892 Other spondylosis, cervical region; R40.2432 Glasgow coma scale score 3-8, at arrival to emergency department; D64.9 Anemia, unspecified; Y95 Nosocomial condition; Z66 Do not resuscitate; Z79.4 Long term (current) use of insulin; Z86.14 Personal history of Methicillin resistant Staphylococcus aureus infection; Z88.0 Allergy status to penicillin; Z88.7 Allergy status to serum and vaccine
CPT/HCPCS: 36556; 36600; 36620; 51702; 70450; 70486; 70551; 71010; 72125; 76937; 80048; 80053; 80076; 80185; 80307; 81001; 82550; 82805; 82948; 82977; 83605; 83735; 84100; 84132; 84484; 85007; 85027; 85610; 85730; 86403; 86850; 86900; 86901; 87040; 87070; 87086; 87147; 87186; 87205; 87641; 93005; 94002; 94003; 94640; 94664; 95819; 96360; 96365; A7520; C9113; J0153; J0456; J1165; J1650; J1815; J1953; J1956; J2060; J2250; J2270; J3010; J3370; J3480; J7030; J7050; Q2009